=== PATIENT | male | born 1950 | race African-American/Black ===

== ENCOUNTER 2022-11-29 09:54 | Outpatient (OUT) | payer MEDICARE, MEDICAID, SELFPAY ==
--- NOTE | 2022-11-29 | XR_ITS ---
The [address] [address] Patient Name: SIMON LOVE MRN: [id number] date: 1950 Sex: M Assigned Patient Location: Current Patient Location: Accession/Order Number: [id number] Exam Date: 11/29/2022 10:22 Report Date: 11/29/2022 10:52 At the request of: LIAM GAYLE Procedure: XR foot RT min 3V PROCEDURE: XR foot RT min 3V HISTORY: RIGHT FOOT PAIN COMPARISON: XR foot right 08/16/2022 FINDINGS: BONES:No increased sclerotic density and irregular margins of the fifth metatarsal suggestive of advanced periosteal reaction. Degenerative changes the first metatarsophalangeal joint and suspected old proximal medial corner fracture of first proximal phalanx. Old healed fracture of the second metatarsal. SOFT TISSUES:Lateral soft tissue swelling and suspected skin surface defect along the lateral plantar margin; possible ulcer. EFFUSION:None visible. OTHER: Negative. XR/XR foot RT min 3V IMPRESSION: 1. Progressing changes of the fifth metatarsal; marked periosteal reaction versus neoplasm. 2. Lateral soft tissue swelling; possible ulcer. Electronically authenticated by: PRAVEEN ESCUDERO Date: 11/29/2022 10:52
== END 2022-11-29 09:55 | disposition home or self-care (01) ==
LOC: WC 09:54
PROVIDERS: PCP Podiatrist Foot & Ankle Surgery; Visit Provider Podiatrist Foot & Ankle Surgery
DX: M79.671 Pain in right foot (principal); E11.621 Type 2 diabetes mellitus with foot ulcer; L97.411 Non-pressure chronic ulcer of right heel and midfoot limited to breakdown of skin; L89.613 Pressure ulcer of right heel, stage 3
CPT/HCPCS: 11042; 73630; A6196

== ENCOUNTER 2022-12-23 10:02 | Outpatient (OUT) | payer MEDICARE, MEDICAID, SELFPAY | END 2022-12-23 10:03 | disposition home or self-care (01) | LOC: WC 10:02 | PROVIDERS: PCP Podiatrist Foot & Ankle Surgery; Visit Provider Physician Assistant | DX: E11.621 Type 2 diabetes mellitus with foot ulcer (principal); L97.411 Non-pressure chronic ulcer of right heel and midfoot limited to breakdown of skin; L89.613 Pressure ulcer of right heel, stage 3; L84 Corns and callosities; E11.40 Type 2 diabetes mellitus with diabetic neuropathy, unspecified; L97.512 Non-pressure chronic ulcer of other part of right foot with fat layer exposed | CPT/HCPCS: 11043; 11055 ==

== ENCOUNTER 2023-01-14 15:59 | Outpatient (OUT) | payer MEDICARE, MEDICAID, SELFPAY | END 2023-01-14 16:00 | disposition home or self-care (01) | LOC: WC 15:59 | PROVIDERS: PCP Podiatrist Foot & Ankle Surgery; Visit Provider Podiatrist Foot & Ankle Surgery | DX: E11.621 Type 2 diabetes mellitus with foot ulcer (principal); L97.411 Non-pressure chronic ulcer of right heel and midfoot limited to breakdown of skin; L89.613 Pressure ulcer of right heel, stage 3 | CPT/HCPCS: 11042 ==

== ENCOUNTER 2023-02-10 10:02 | Outpatient (OUT) | payer MEDICARE, MEDICAID, SELFPAY | END 2023-02-10 10:03 | disposition home or self-care (01) | LOC: WC 10:03 | PROVIDERS: PCP Podiatrist Foot & Ankle Surgery; Visit Provider Physician Assistant | DX: E11.621 Type 2 diabetes mellitus with foot ulcer (principal); L97.411 Non-pressure chronic ulcer of right heel and midfoot limited to breakdown of skin; L89.613 Pressure ulcer of right heel, stage 3 | CPT/HCPCS: 11043; 11046 ==

== ENCOUNTER 2023-03-07 09:45 | Outpatient (OUT) | payer MEDICARE, MEDICAID, SELFPAY | END 2023-03-07 09:46 | disposition home or self-care (01) | LOC: WC 09:45 | PROVIDERS: PCP Podiatrist Foot & Ankle Surgery; Visit Provider Podiatrist Foot & Ankle Surgery | DX: E11.621 Type 2 diabetes mellitus with foot ulcer (principal); L97.411 Non-pressure chronic ulcer of right heel and midfoot limited to breakdown of skin; L89.613 Pressure ulcer of right heel, stage 3 | CPT/HCPCS: 11042; 15275; A6213; Q4196 ==

== ENCOUNTER 2023-03-14 09:49 | Outpatient (OUT) | payer MEDICARE, MEDICAID, SELFPAY | END 2023-03-14 09:50 | disposition home or self-care (01) | LOC: WC 09:50 | PROVIDERS: PCP Podiatrist Foot & Ankle Surgery; Visit Provider Podiatrist Foot & Ankle Surgery | DX: E11.621 Type 2 diabetes mellitus with foot ulcer (principal); L97.411 Non-pressure chronic ulcer of right heel and midfoot limited to breakdown of skin; L89.613 Pressure ulcer of right heel, stage 3 | CPT/HCPCS: 11042; 15275; Q4196 ==

== ENCOUNTER 2023-03-21 09:53 | Outpatient (OUT) | payer MEDICARE, MEDICAID, SELFPAY | END 2023-03-21 09:54 | disposition home or self-care (01) | LOC: WC 09:53 | PROVIDERS: PCP Podiatrist Foot & Ankle Surgery; Visit Provider Podiatrist Foot & Ankle Surgery | DX: E11.621 Type 2 diabetes mellitus with foot ulcer (principal); L97.411 Non-pressure chronic ulcer of right heel and midfoot limited to breakdown of skin; L89.613 Pressure ulcer of right heel, stage 3 | CPT/HCPCS: 11042; 15275; Q4196 ==

== ENCOUNTER 2023-03-28 11:49 | Outpatient (OUT) | payer MEDICARE, MEDICAID, SELFPAY | END 2023-03-28 11:50 | disposition home or self-care (01) | LOC: WC 11:49 | PROVIDERS: PCP Podiatrist Foot & Ankle Surgery; Visit Provider Podiatrist Foot & Ankle Surgery | DX: E11.621 Type 2 diabetes mellitus with foot ulcer (principal); L97.411 Non-pressure chronic ulcer of right heel and midfoot limited to breakdown of skin; L89.613 Pressure ulcer of right heel, stage 3; L84 Corns and callosities; E11.40 Type 2 diabetes mellitus with diabetic neuropathy, unspecified; R60.0 Localized edema; Z89.412 Acquired absence of left great toe; E11.65 Type 2 diabetes mellitus with hyperglycemia; I73.89 Other specified peripheral vascular diseases; I87.2 Venous insufficiency (chronic) (peripheral) | CPT/HCPCS: 15275; Q4101 ==

== ENCOUNTER 2023-04-04 11:22 | Outpatient (OUT) | payer MEDICARE, MEDICAID, SELFPAY | END 2023-04-04 11:23 | disposition home or self-care (01) | LOC: WC 11:22 | PROVIDERS: PCP Podiatrist Foot & Ankle Surgery; Visit Provider Podiatrist Foot & Ankle Surgery | DX: E11.621 Type 2 diabetes mellitus with foot ulcer (principal); L97.411 Non-pressure chronic ulcer of right heel and midfoot limited to breakdown of skin; L89.613 Pressure ulcer of right heel, stage 3 | CPT/HCPCS: 15275; Q4101 ==

== ENCOUNTER 2023-04-17 13:19 | Outpatient (OUT) | payer MEDICARE, MEDICAID, SELFPAY | END 2023-04-17 13:20 | disposition home or self-care (01) | LOC: WC 13:19 | PROVIDERS: PCP Podiatrist Foot & Ankle Surgery; Visit Provider Podiatrist Foot & Ankle Surgery | DX: E11.621 Type 2 diabetes mellitus with foot ulcer (principal); L97.411 Non-pressure chronic ulcer of right heel and midfoot limited to breakdown of skin; L89.613 Pressure ulcer of right heel, stage 3 | CPT/HCPCS: 15275; Q4101 ==

== ENCOUNTER 2023-04-24 10:48 | Outpatient (OUT) | payer MEDICARE, MEDICAID, SELFPAY | END 2023-04-24 10:49 | disposition home or self-care (01) | LOC: WC 10:48 | PROVIDERS: PCP Podiatrist Foot & Ankle Surgery; Visit Provider Podiatrist Foot & Ankle Surgery | DX: E11.621 Type 2 diabetes mellitus with foot ulcer (principal); L97.411 Non-pressure chronic ulcer of right heel and midfoot limited to breakdown of skin; L89.613 Pressure ulcer of right heel, stage 3 | CPT/HCPCS: 15275; Q4101 ==

== ENCOUNTER 2023-05-01 10:00 | Outpatient (OUT) | payer MEDICARE, MEDICAID, SELFPAY ==
--- OUTSIDE RECORDS SUMMARY | 2023-05-02 10:54 | XMS_ITS | CCD ---
Author Name Unknown Address [address] [place] [address] Organization [facility] Care Team Providers Care Circuit Designer Name Role Phone Johan Taylor Unavailable Olga Lidia Martin Unavailable Fawad Rocha Unavailable Yisel Andrade Unavailable [facility] Primary Care Prov ider ELBA Ochoa Attending Provider [phone] DO Ivan Springer Emergency Provider [phone] DO Maye Murray Primary Care Provider DO Chris Mccarthy Admit Provider MD Johan Taylor Other Provider MD Olga Lidia Martin Other Provider MD Jose Escobar Other Provider MD Manoj Frank Other Provider MD Christofer Persaud Other Provider MD Yisel Andrade Other Provider DEEDEE Turpin Other Provider UnavailDEEDEE Rene Other Provider Unavailable MD Fawad Rocha Other Provider ELÍAS Castorena Other Provider [phone] MD Raimundo Gandhi Other Provider [phone] MD Master Mauricio Other Provider [phone] ELBA Ochoa Bhakti Other Provider MD Landon Grullon Attending Provider MD Kiko Corbett Other Provider DO Ramakrishna Sandoval Emergency Provider MD Kiko Corbett Attending Provider Spasic, BOAT OFFICER-C Mervat E Primary Care Provider Spasic, BOAT OFFICER-C Mervat E Referring Provider DO Jose M Landry II Attending Provider Riya Pitt Unavailable Master Mauricio Unavailable MD Jose Escobar Other Provider Unavailable Spasic, BOAT OFFICER-C Mervat E Primary Care Provider Spasic, BOAT OFFICER-C Mervat E Referring Provider DO Jose M Landry II Attending Provider Maye Murray Unavailable Unavailable Unavailable DO Maye Murray Primary Care Provider MD Kiko Corbett Attending Provider Spasic, BOAT OFFICER-C Mervat E Primary Care Provider Spasic, BOAT OFFICER-C Mervat E Referring Provider DO Jose M Landry II Attending Provider MD Renata Wyatt Attending Provider DO Kasey Heller Referring Provider DO Maye Murray Attending Provider Spasic, BOAT OFFICER-C Mervat E Primary Care Provider Spasic, BOAT OFFICER-C Mervat E Referring Provider DO Jose M Landry II Attending Provider MD Renata Wyatt Attending Provider Spasic, BOAT OFFICER-C Mervat E Primary Care Provider Spasic, BOAT OFFICER-C Mervat E Referring Provider Frantz GUILLEN, DO Jose M Wiggins Attending Provider Unavailable Primary Care Provider DO Maye Adkins Primary Care Provider MD Kiko Corbett Attending Provider Spasic, BOAT OFFICER-C Mervat E Primary Care Provider Spasic, BOAT OFFICER-C Mervat E Referring Provider DO Jose M Landry II Attending Provider [phone] MAYE MURRAY Primary Care Physician [phone] Bunting Maye GHOSH Primary Care Provider [phone] BunDO Maye flynn Primary Care Provider MD Kiko Corbett Attending Provider Spasic, BOAT OFFICER-C Mervat E Primary Care Provider Spasic, BOAT OFFICER-C Mervat E Referring Provider Frantz GUILLEN, DO Jose M Wiggins Attending Provider DO Maye Murray Attending Provider [phone] DO Maye Murray Primary Care Provider Spasic, BOAT OFFICER-C Mervat E Primary Care Provider Spasic, BOAT OFFICER-C Mervat E Referring Provider DO Jose M Landry II Attending Provider Spasic, BOAT OFFICER-C Mervat E Primary Care Provider Spasic, BOAT OFFICER-C Mervat E Referring Provider DO Jose M Landry II Attending Provider [phone] MD Sonal Márquez Jr Emergency Provider Spasic, BOAT OFFICER-C Mervat E Primary Care Provider [phone] Jack, BOAT OFFICER-C Mervat Hughes Referring Provider DO Jose M Landry II Attending Provider LIAM GAYLE Admitting Unavailable LIAM GAYLE Attending Unavailable PILI, DR PRAKASH Primary Care Unavailable KENA, DR PRAVEEN Roy Consulting Unavailable LIAM GAYLE Consulting Unavailable Bunting, Maye Attending Unavailable Bunting, Maye Admitting Unavailable Bunting, Maye Primary Care Unavailable Lue, Kiko M Admitting Unavailable Lue, Kiko M Attending Unavailable Bunting, Maye Primary Care Unavailable YwattRenata Attending Unavailable Bunting, Maye Primary Care Unavailable Kasey Heller Referring Unavailable Wyatt, Renata Admitting Unavailable Spasic, Mervat E Admitting Unavailable Spasic, Mervat E Attending Unavailable Bunting, Maye Primary Care Unavailable Lauren, Srinivas M Attending Unavailable Lauren, Srinivas M Admitting Unavailable Spasic, Mervat E Primary Care Unavailable Lue, Kiko M Admitting Unavailable Lue, Kiko M Attending Unavailable Bunting, Maye Primary Care Unavailable Lue, Kiko M Admitting Unavailable Lue, Kiko M Attending Unavailable Bunting, Maye Primary Care Unavailable Bunting, Maye Attending Unavailable Bunting, Maye Admitting Unavailable Bunting, Maye Primary Care Unavailable Bunting, Maye Attending Unavailable Bunting, Maye Admitting Unavailable Bunting, Maye Primary Care Unavailable Bunting, Maye Primary Care Unavailable Bunting, Maye Attending Unavailable Bunting, Maye Admitting Unavailable Lue, Kiko M Admitting Unavailable Lue, Kiko M Attending Unavailable Bunting, Maye Primary Care Unavailable Spasic, Mervat E Referring Unavailable Spasic, Mervat E Primary Care Unavailable Jose M Landry II Admitting UnavailJose M García II Attending Unavaila Sonal Jerome Jr Admitting Unavailable Sonal Márquez Jr Attending Unavailable Bunting, Maye Primary Care Unavailable Keister, Ramakrishna A Attending Unavailable Bunting, Maye Primary Care Unavailable Keister, Ramakrishna A Admitting Unavailable Ochoa, Bhakti Attending Unavailable [facility] Primary Care U navailable Bhakti Ochoa Admitting Unavailable Bunting, Maye Primary Care Unavailable Johan Taylor Consulting Unavailable Chris Mccarthy Admitting Unavaildilshad e Landon Grullon Attending Unavailab Olga Lidia Hampton Consulting Unavailable Jose Escobar Consulting Unavailable Singhlisset, Manoj Consulting Unavailable Persaud, Christofer Consulting Unavailable Bakhous, Aziz Consulting Unavailable GeDelores medina Consulting Unavailable Jessica Lua Consulting Unavailable Fawad Rocha Consulting Unavailable Jailene Castorena Consulting Unavailable Raimundo Gandhi F Consulting Unavailable Master Mauricio Consulting Unavailabl e Ochoa, Bhakti Consulting Unavailable Kiko Corbett Consulting Unavailable Julian Jones Attending Unavailable Mervat Santiago Primary Care Unavailable Riya Pitt Consulting Unavailable Landon Grullon Admitting Unavailab le Bakkip, Aziz Consulting Unavailable Ochoa, Bhakti Consulting Unavailable Sj Barron Consulting Unavailable Kiko Corbett Admitting Unavailable Kiko Corbett Attending Unavailable Maye Murray Primary Care Unavailable DO Maye Murray Primary Care Provider DO Maye Murray Attending Provider [phone] MD Sonal Márquez Jr Emergency Provider Claudioc, BOAT OFFICER-C Mervat Hughes Primary Care Provider Jack, BOAT OFFICER-C Mervat Hughes Referring Provider DO Jose M Landry II Attending Provider Jack, BOAT OFFICER-C Mervat Hughes Attending Provider DO Srinivas Aguilar Emergency Provider TYSON Dwyer Emergency Provider [phone] MD Landon Grullon Admit Provider MD Riya Pitt Other Provider MD Yisel Andrade Other Provider ELBA Ochoa Other Provider MD Julian Jones Attending Provider MD Sj Barron Other Provider DO Serafin Pearson Emergency Provider MD Kevin Steinberg Admit Provider MD Kevin Steinberg Attending Provider [phone] MD Johan Taylor Other Provider MD Fawad Rocha Other Provider Bunting, Dr. Maye Nuno Primary Care Unavaila ble Bunting, Dr. Maye Nuno Primary Care Unavaila ble Bunting, Dr. Maye Nuno Primary Care Unavaila ble MD RENATA WYATT Attending Unavailable MD RENATA WYATT Referring Unavailable Travon Paz Attending Unavailable Bunting, Dr. Maye Nuno Primary Care Unavaila MD RENATA Case Attending Unavailable MD RENATA WYATT Referring Unavailable Bunting, DO Walton Primary Care Provider ELBA Gomez Other Provider MD Riya Pitt Attending Provider Spasic, BOAT OFFICER-C Mervat E Primary Care Provider [phone] Spasic, BOAT OFFICER-C Mervat E Referring Provider DO Jose M Landry II Attending Provider MD Pedro Drake Emergency Provider DO Maye Murray Primary Care Provider Spasic, BOAT OFFICER-C Mervat E Referring Provider DO Jose M Landry II Attending Provider [phone] MAI Kessler Emergency Provider [phone] DO Riya Sampson Admit Provider DO Riya Sampson Attending Provider DO Jose M Landry II Attending Provider Kgsic, BOAT OFFICER-C Mervat E Referring Provider Spasic, BOAT OFFICER-C Mervat E Primary Care Provider MD Riya Pitt Other Provider Spasic, BOAT OFFICER-C Mervat E Attending Provider MD Fawad Rocha Other Provider Spasic, BOAT OFFICER-C Mervat E Primary Care Provider [phone] MD Riya Pitt Other Provider Lue, Kiko M. Attending Unavailable Lue, Kiko M. Attending Unavailable Lue, Kiko M. Attending Unavailable Lue, Kiko M. Attending Unavailable Lue, Kiko M. Attending Unavailable Lue, Kiko M. Attending Unavailable Lue, Kiko M. Attending Unavailable Lue, Kiko M. Attending Unavailable Lue, Kiko M. Attending Unavailable Spasic, BOAT OFFICER-C Mervat E Primary Care Provider MD Riya Pitt Attending Provider Spasic, BOAT OFFICER-C Mervat E Attending Provider [facility] Primary Care Prov ider Spasic, BOAT OFFICER-C Mervat E Referring Provider Spasic, BOAT OFFICER-C Mervat E Primary Care Provider Spasic, BOAT OFFICER-C Mervat E Referring Provider Spasic, BOAT OFFICER-C Mervat E Primary Care Provider TYSON Dixon Attending Provider Spasic, BOAT OFFICER-C Mervat E Primary Care Provider DO Jose M Landry II Attending Provider MD Johan Taylor Attending Provider [phone] ALEJANDRO FLORES Admitting Unavailable ALEJANDRO FLORES Attending Unavailable SHELDON DE LEON Attending Unavailable RAIMUNDO MONTES Admitting Unavailable SONAL MÁRQUEZ JR Referring Unavailable TERRI, MAYE RAY Primary Care Unavailable RIYA ARAMBULA Admitting Unavailable RIYA ARAMBULA Attending Unavailable DANATING, MAYE RAY Primary Care Unavailable ALEJANDRO FLORES Admitting Unavailable ALEJANDRO FLORES Attending Unavailable DO Jose M Landry II Attending Provider [phone] Spasic, BOAT OFFICER-C Mervat E Attending Provider [facility] Primary Care Prov ider TYSON Dixon Attending Provider MD Johan Taylor Attending Provider [phone] NON STAFF Primary Care Provider Unavailabl e Spasic, BOAT OFFICER-C Mervat E Primary Care Provider Spasic, BOAT OFFICER-C Mervat E Referring Provider DO Jose M Landyr II Attending Provider [facility] Care Prov ider Spasic, BOAT OFFICER-C Mervat E Attending Provider Spasic, BOAT OFFICER-C Mervat E Primary Care Provider Spasic, BOAT OFFICER-C Mervat E Referring Provider MD Fawad Rocha Attending Provider [facility] Prov ider Spasic, BOAT OFFICER-C Mervat E Attending Provider Spasic, BOAT OFFICER-C Mervat E Primary Care Provider Spasic, BOAT OFFICER-C Mervat E Referring Provider TYSON Dixon Attending Provider MD Jhoan Taylor Attending Provider NON STAFF Primary Care Provider Unavailabl e Spasic, BOAT OFFICER-C Mervat E Attending Provider DO Jose M Landry II Attending Provider MD Fawad Rocha Attending Provider Spasic, BOAT OFFICER-C Mervat E Primary Care Provider Spasic, BOAT OFFICER-C Mervat E Referring Provider Allergies Allergy Classification Reported Allergen(s) Allergy Type Date of Onset Reaction(s) Facility (20 sources) Codeine; Translations: [codeine] Drug Allergy 6 Unknown (qualifier value), GI Upset [facility] (20 sources) Lisinopril; Translations: [lisinopril] Drug Allergy 2 anaphylaxis, Swelling (finding), Swelling [facility] (1 source) Amino Acids Drug Allergy [facility] (1 source) Codeine Drug Allergy [facility] (1 source) Codeine Drug Allergy 3 [facility] (1 source) Lisinopril Drug Allergy 3 [facility] Medications Current Medications Medication Drug Class(es) Dates Sig (Normalized) Sig (Original) acarbose 100 mg oral tablet (20 sources) alpha-Glucosidase Inhibitor Start: 05-25-2020 End: 05-18-2021 Start: 10-13-2019 End: 03-21-2020 Comment on above: Take 100 mg by mouth three times daily with meals. Alpha Lipoic 100 mg oral tablet (4 sources) Start: 06-07-2022 take 1 mg by mouth twice daily Alpha Lipoic 100 mg oral tablet mg tab(s), Oral, BID, Refills(s) 0 Start Date: 06/07/22 Status: Ordered Alpha Lipoic Acid 200 MG (11 sources) take 1 capsule by mouth once daily Alpha Lipoic Acid 200 MG 1 capsule Orally Once a day Active Alpha Lipoic Aci d 200 MG as directed Orally daily Active Alpha Lipoic Acid 300 MG (5 sources) Alpha Lipoic Aci d 300 MG Orally bid Active ascorbic acid 500 mg oral tablet (20 sources) Vitamin C Start: 04-02-2023 Start: 05-18-2021 End: 10-21-2022 take 1 capsule by mouth once luis ly Vitamin C 500 MG Oral Capsule TAKE 1 CAPSULE Daily Quantity: 0 Refills: 0 Ordered: 21-Feb-2022 DO Active Aspir 81 (2 sources) Start: 11-19-2018 take 1 mg by mouth once daily Aspir 81 mg, Oral, Daily, Refills(s) 0 Start Date: 11/19/18 Status: Ordered atorvastatin 10 mg oral tablet (20 sources) HMG-CoA Reductase Inhibitor Start: 05-25-2020 Start: 12-25-2016 End: 05-25-2020 Comment on above: Take 40 mg by mouth once daily. Boost Glucose Control - (3 sources) Boost Glucose Co ntrol - as directed Orally TWICE A DAY Active calcium acetate 668 mg oral tablet (5 sources) Start: 02-13-2023 take 2 tablets by mouth every eight hours Calcium Acetate 668 (169 Ca) MG 2 tablets with meals Orally Three times a day for 30 day(s) Feb, Active Cepacol Sore Throat 3 MG (8 sources) Cepacol Sore Thr oat 3 MG Mouth/Throat prn Active cloNIDine hydrochloride 0.1 mg oral tablet (4 sources) Central alpha-2 Adrenergic Agonist Start: 04-02-2023 clopidogrel 75 mg oral table t (20 sources) P2Y12 Platelet Inhibitor Start: 05-25-2020 Start: 11-19-2018 End: 03-21-2020 Plavix Active Comment on above: Take 75 mg by mouth once daily. Take 1 tablet by tyshawn once daily. Cymbalta 60 mg Cap-DR (5 sources) Start: 9 take 1 capsule by mouth once daily Cymbalta 60 mg Cap-DR 60 mg, Oral, Daily Start Date: 11/19/18 Status: Ordered DULoxetine 60 mg delayed release oral capsule (20 sources) Serotonin and Norepinephrine Reuptake Inhibitor Start: 3 Start: 06-09-2020 duloxetine Ora l, Refills(s) 0 Start Date: 06/09/20 Status: Ordered Start: 03-21-2020 End: 09-10-2022 Start: 11-19-2018 End: 03-21-2020 Start: 12-25-2016 End: 10-13-2019 take 3 capsules by m outh every twelve hours DULoxetine HCl 60 MG 3 CAPSULES Orally Twice a day Active take 3 capsules by m outh every twelve hours take 3 capsules by m outh twice daily DULoxetine HCl - 20 MG Oral Capsule Delayed Release Particles TAKE 3 CAPSULE Twice daily Quantity: 0 Refills: 0 Ordered: 21-Feb-2022 DO Active DULoxetine HCl 6 0 MG as directed Orally Twice a day Active DULoxetine HCl A ctive Comment on above: Take 60 mg by mouth once daily. Ergocalciferol (2 sources) Provitamin D2 Compound Start: 04-02-20 take 58496 [IU] by mouth every week Ergocalciferol (Vitamin D2) Active 77894 UNIT PO every week April 02, 2023 12:00am ertapenem 1000 mg injection (3 sources) Penem Antibacterial Ertapenem So dium 1 GM as directed Injection Active ferrous sulfate 325 mg oral tablet (20 sources) Start: 04-02-20 Start: 05-18-2021 End: 10-21-2022 take 325 mg by mouth once Ferrous Sulfate Discontinued 325 MG PO every Friday, Friday, and Tuesday May 18, 2021 12:34pm October 21, 2022 11:42am Start: 05-18-2021 End: 11-14-2021 Start: 05-30-2020 End: 10-21-2022 Start: 03-21-2020 End: 05-25-2020 Start: 11-19-2018 take 1 tablet by tyshawn th three times daily ferrous sulfate 325 mg Tab 325 mg = 1 tab(s), Oral, TID Start Date: 11/19/18 Status: Ordered Start: 12-25-2016 End: 01-26-2020 take 1 tablet by tyshawn th once daily Ferrous Sulfate 325 (65 Fe) MG 1 tablet Orally ONCE A DAY Active Comment on above: Take 325 mg by mouth daily with breakfast. folic acid 1 mg oral tablet (20 sources) Start: 03-14-2021 Comment on above: Take 1 mg by mouth o nce daily. furosemide 40 mg oral tablet (20 sources) Loop Diuretic Start: 11-21-2021 End: 04-16-2023 Start: 11-21-2021 Start: 11-21-2021 take 40 mg by mouth twice daily Furosemide Active 40 MG PO BID@0800,1600 0 November 21, 2021 12:00am Start: 12-25-2016 End: 05-25-2020 Start: 12-25-2016 End: 05-25-2020 take 40 mg by mouth once daily Furosemide Discontinued 40 MG PO Daily December 24, 2016 11:00pm May 25, 2020 12:42pm Comment on above: Take 40 mg by mouth twice daily. gabapentin 600 mg oral table t (20 sources) Anti-epileptic Agent Start: 11-21-2021 End: 04-16-2023 Start: 11-21-2021 take 600 mg by mouth once daily in the evening Gabapentin Active 600 MG PO Every evening 0 November 21, 2021 12:00am Start: 12-25-2016 End: 11-21-2021 Start: 12-25-2016 End: 11-21-2021 take 1 tablet by mouth three times daily Gabapentin (Neurontin) 800 mg Tablet Discontinued 800 MG PO Three times daily January 25, 2020 11:00pm November 21, 2021 6:18pm take 1 tablet by tyshawn th every twenty-four hours Neurontin 600 MG 1 tablet Orally Once a day Active take 1 tablet by tyshawn th three times daily GABAPENTIN (NEURONTIN ORAL) Take 1 tablet by mouth three times daily. 0 Suspended take 1 tablet by tyshawn th three times daily GABAPENTIN (NEURONTIN ORAL) Take 1 tablet by mouth three times daily. 0 Active take 1 tablet by tyshawn th three times daily Neurontin 800 1 tablet Orally Three times a day Active Comment on above: Take 1 tablet by tyshawn th three times daily. Insulin Aspart U-100 (Novolog U-100 Insulin Aspart) 100 unit/mL Solution (20 sources) Start: 03-21-2020 Insulin Aspart U-100 (Novolog U-100 Insulin Aspart) 100 unit/mL Solution Active 0 unit SUBCUT Before meals and at bedtime March 21, 2020 12:00am 151-200 0 units 201-250 2 units 251-300 4units 301-350 6 units 351-400 8 units 401-450 10 units over 400 call doctor Start: 03-21-2020 Insulin Aspart U-100 (Novolog U-100 Insulin Aspart) 100 unit/mL Solution Active 0 unit SUBCUT Before meals and at bedtime March 21, 2020 12:00am 151-200 2 units 201-250 4 units 251-300 6 units 301-350 8 units 351-400 10 units 401-450 12 units 451-500 14 units over 500 call doctor Start: 03-21-2020 End: 05-25-2020 inject 6 [IU] by subcutaneous injection once daily Insulin Aspart U-100 (Novolog U-100 Insulin Aspart) 100 unit/mL Solution Discontinued 6 UNIT SUBCUT Daily March 21, 2020 12:00am May 25, 2020 12:42pm with supper Start: 03-21-2020 Insulin Aspart U-100 (Novolog U-100 Insulin Aspart) 100 unit/mL Solution Active 0 unit SUBCUT Before meals and at bedtime March 21, 2020 1:00am 151-200 2 units 201-250 4 units 251-300 6 units 301-350 8 units 351-400 10 units 401-450 12 units 451-500 14 units over 500 call doctor Start: 03-21-2020 End: 05-25-2020 inject 6 [IU] by subcutaneous injection once daily Insulin Aspart U-100 (Novolog U-100 Insulin Aspart) 100 unit/mL Solution Discontinued 6 UNIT SUBCUT Daily March 21, 2020 1:00am May 25, 2020 1:42pm with supper insulin aspart, human 100 unt/ml injectable solution (20 sources) Insulin Analog Start: 11-19-2018 NovoLOG 100 un its/mL injectable solution SubCutaneous, TIDAC, Refills(s) 0 Start Date: 11/19/18 Status: Ordered Start: 12-25-2016 End: 01-19-2020 inject 1 dose by subcutaneous injection at bedtime Insulin Aspart U-100 Discontinued 25 sliding scale dose SUBCUT Before meals and at bedtime December 24, 2016 11:00pm January 19, 2020 7:30am Start: 12-25-2016 End: 01-19-2020 inject 1 dose by subcutaneous injection at bedtime Insulin Aspart U-100 Discontinued 25 sliding scale dose SUBCUT Before meals and at bedtime December 25, 2016 12:00am January 19, 2020 8:30am NovoLOG 100 UNIT /ML as directed Subcutaneous SLIDING SCALE NEEDED Active insulin aspart U -100 (NOVOLOG) 100 unit/mL Inject subcutaneously. As directed 0 Active NovoLOG FlexPen 100 UNIT/ML Subcutaneous Solution Pen-injector sliding scale Quantity: 0 Refills: 0 Ordered: 21-Feb-2022 DO Active inject 6 [IU] by sub cutaneous injection once NovoLOG 100 UNIT/ML 6 units Subcutaneous q supper Active inject 4 [IU] by sub cutaneous injection once daily at bedtime NovoLOG 100 UNIT/ML 4 units Subcutaneous QHS Active Comment on above: Inject subcutaneousl y. As directed Insulin Detemir U-100 (Levemir Flextouch U100 Insulin) 100 unit/mL (3 mL) insulin pen (5 sources) Start: 05-18-2021 Insulin Detemir U-100 (Levemir Flextouch U100 Insulin) 100 unit/mL (3 mL) insulin pen Active 42 UNIT SUBCUT Every morning May 18, 2021 12:00am Start: 05-18-2021 Insulin Detemi r U-100 (Levemir Flextouch U100 Insulin) 100 unit/mL (3 mL) insulin pen Active 42 UNIT SUBCUT Daily May 18, 2021 12:00am Lac-Hydrin Twelve (3 sources) Lac-Hydrin Twelv e Active ammonium lactate 120 mg/ml t opical lotion (20 sources) Start: 10-22-2022 Start: 10-22-2022 Ammonium Lacta te Active 1 APPLIC TOPICAL Daily October 21, 2022 11:00pm Start: 05-25-2020 End: 10-21-2022 Start: 05-25-2020 End: 10-21-2022 Ammonium Lactate Discontinue d 1 APPLIC TOPICAL Every shift May 25, 2020 12:00am October 21, 2022 11:42am apply to intact areas of BLE every day shift [facility] Start: 05-25-2020 Ammonium Lacta te Active 1 APPLIC TOPICAL Every shift May 25, 2020 1:00am Ammonium Lactate 12 % 1 application Externally Twice a day Active ammonium lactate (LAC-HYDRIN) 12 % cream Apply to affected area as needed. 0 Active Comment on above: Apply to affected ar ea as needed. Levemir FlexTouch 100 UNIT/ML (5 sources) Levemir FlexTouc h 100 UNIT/ML as directed Subcutaneous 42 units in the am Active losartan potassium 50 mg oral tablet (20 sources) Angiotensin 2 Receptor Preston Start: 04-02-2023 Start: 11-21-2021 End: 10-21-2022 Start: 11-21-2021 take 50 mg by mouth once daily Losartan Active 50 MG PO Daily November 21, 2021 7:13pm Start: 05-18-2021 End: 11-21-2021 Start: 03-21-2020 End: 05-30-2020 Start: 09-30-2018 End: 01-26-2020 Start: 09-30-2018 End: 11-21-2021 take 25 mg by mouth once daily Losartan Discontinued 2 5 MG PO Daily May 18, 2021 12:00am November 21, 2021 6:18pm take 1 tablet by [facility] once daily losartan (COZAAR) 100 mg tablet Take 100 mg by mouth once daily. 0 Suspended Comment on above: Take 100 mg by mouth once daily. melatonin 5 mg oral tablet (20 sources) Start: 05-18-2021 Start: 05-18-2021 take 5 mg by mouth at bedtime Melatonin Active 5 MG PO Bedtime May 18, 2021 12:00am Start: 06-09-2020 melatonin 5 mg , Once a day (at bedtime), Refills(s) 0 Start Date: 06/09/20 Status: Ordered Start: 06-09-2020 melatonin Once a day (at bedtime), Refills(s) 0 Start Date: 06/09/20 Status: Ordered take 1 tablet by tyshawn th once daily in the evening Melatonin 5 MG 1 tablet in the evening Orally Once a day Active take 1 capsule by mo [facility] at bedtime Melatonin 5 MG Oral Capsule TAKE 1 CAPSULE Bedtime Quantity: 0 Refills: 0 Ordered: 21-Feb-2022 DO Active Multivitamins - (8 sources) Multivitamins - Orally Active NIFEdipine 60 mg osmotic 24 hr extended release oral tablet (20 sources) Dihydropyridine Calcium Channel Preston Start: 09-12-2022 End: 10-21-2022 Start: 09-12-2022 End: 10-21-2022 take 60 mg by mouth once daily Nifedipine Discontinued 60 MG PO Daily September 11, 2022 11:00pm October 21, 2022 11:41am Start: 06-07-2022 take 1 mg by mouth once daily NIFEdipine 30 mg ER Tab mg tab(s), Oral, Daily, Refills(s) 0 Start Date: 06/07/22 Status: Ordered Start: 11-21-2021 End: 09-12-2022 Start: 11-21-2021 take 30 mg by mouth once daily Nifedipine Active 30 MG PO Daily 0 November 21, 2021 12:00am take 1 tablet by tyshawn th every twenty-four hours NIFEdipine ER 90 MG 1 tablet on an empty stomach Orally Once a day Active take 1 tablet by tyshawn th every twenty-four hours NIFEdipine ER 30 MG 1 tablet on an empty stomach Orally Once a day Active take 1 tablet by tyshawn th once daily NIFEdipine ER (PROCARDIA XL) 30 mg 24 hr tablet Take 30 mg by mouth once daily. 0 Active Comment on above: Take 30 mg by mouth once daily. polyethylene glycol 3350 170 00 mg powder for oral solution (20 sources) Osmotic Laxative Start: 11-21-2021 Start: 11-21-2021 Start: 11-21-2021 Polyethylene G lycol 3350 (Miralax) 17 gram Powder In Packet Active 17 GM PO Daily 0 November 21, 2021 12:00am Polyethylene Gly col 3350 17 GM/SCOOP 1 scoop mixed with 8 ounces of fluid Orally Once a day Active Polyethylene Glycol 3350 17 GM/SCOOP (3 sources) Polyethylene Gly col 3350 17 GM/SCOOP 1 scoop mixed with 8 ounces of fluid Orally Once a day Active potassium chloride 20 meq extended release oral tablet (20 sources) Start: 05-18-2021 Start: 05-18-2021 Start: 03-21-2020 End: 05-25-2020 Start: 12-25-2016 End: 01-26-2020 Start: 12-25-2016 End: 01-26-2020 take 30 mEq by mouth once daily Potassium Chloride Dis continued 30 MEQ PO Daily December 24, 2016 11:00pm January 26, 2020 8:53am take 1 dose by mouth once daily at mealtime Potassium Chloride 20 MEQ 1 packet with food Orally Once a day Active take 1 tablet by tyshawn every twenty-four hours Klor-Con M20 20 mEq 1 tablet with food Orally qd Active Probiotic - (8 sources) Probiotic - Oral ly Active Saccharomyces boulardii lyo (3 sources) tamsulosin hydrochloride 0.4 mg oral capsule (20 sources) alpha-Adrenergic [place] Start: 07-17-2022 Start: 11-19-2018 take 1 capsule by mo [facility] once daily tamsulosin 0.4 mg Cap 0.4 mg = 1 cap(s), Oral, Daily Start Date: 11/19/18 Status: Ordered Start: 12-25-2016 End: 04-22-2022 Comment on above: Take 0.4 mg by mouth . Trulance 3mg (2 sources) Start: 7 take 1 tablet by mouth once daily Trulance 3mg 1 tablet po once a day for 1 month Dec, Active 200 ml vancomycin 5 mg/ml injection (3 sources) Glycopeptide Antibacterial Vancomycin HCl in Dextrose 1-5 GM/200ML as directed done on 01/02/2022 Active Vancomycin HCl 1 GM as directed Intravenous Active Vitamin D3 2000 UNIT (8 sources) take 1 capsule by mouth once luis ly take 1 capsule by mouth once luis ly Vitamin D3 2000 UNIT 1 capsule Orally Once a day Active (20 sources) Start: 04-02-2023 Start: 09-12-2022 End: 10-21-2022 Start: 09-12-2022 Start: 11-21-2021 End: 01-11-2022 Start: 05-18-2021 Start: 05-18-2021 End: 11-14-2021 Start: 05-30-2020 End: 06-26-2020 Start: 03-21-2020 Start: 03-21-2020 End: 05-25-2020 Start: 03-21-2020 End: 05-25-2020 Start: 03-21-2020 End: 05-25-2020 Start: 12-25-2016 End: 01-19-2020 Start: 12-25-2016 End: 05-25-2020 Start: 12-25-2016 End: 05-25-2020 Start: 12-25-2016 End: 12-22-2019 Completed/Discontinued Medications Medication Drug Class(es) Dates Sig (Normalized) Sig (Original) acetaminophen 325 mg oral tablet (20 sources) Start: 03-21-2020 End: 10-21-2022 Start: 11-19-2018 take 1 tablet by tyshawn every four hours Tylenol 325 mg Tab 325 mg = 1 tab(s), Oral, q4hr Start Date: 11/19/18 Status: Ordered take 2 tablets by mo [facility] every six hours as needed acetaminophen (TYLENOL) 325 mg tablet Take 650 mg by mouth every 6 hours as needed. 0 Active Comment on above: Take 650 mg by mouth every 6 hours as needed. aluminum hydroxide 40 mg/ml / magnesium hydroxide 40 mg/ml / simethicone 4 mg/ml oral suspension (7 sources) aluminum-magnesi um hydroxide-simethicone (MAALOX,MYLANTA,MAG-A L PLUS) 200-200-20 mg/5 mL suspension Take by mouth every 6 hours as needed. 0 Active Comment on above: Take by mouth every 6 hours as needed. amitriptyline hydrochloride 10 mg oral tablet (20 sources) Tricyclic Antidepressant Start: 11-19-2018 End: 07-17-2022 Start: 12-25-2016 End: 05-25-2020 take 10 mg by mouth once daily at bedtime amitriptyline (ELAVIL) 25 mg tablet Take 10 mg by mouth daily at bedtime. 0 Active take 1 tablet by tyshawn th once daily at bedtime amitriptyline (ELAVIL) 25 mg tablet Take 25 mg by mouth daily at bedtime. 0 Active take 1 tablet by tyshawn th every twenty-four hours Amitriptyline HCl 10 MG 1 tablet at bedtime Orally Once a day Active Comment on above: Take 25 mg by mouth daily at bedtime. Take 10 mg by mouth daily at bedtime. amoxicillin 500 mg oral capsule (7 sources) Penicillin-class Antibacterial Start: 9 take 1 capsule by mouth every eight hours amoxicillin (POLYMOX, AMOXIL) 500 mg capsule take 1 capsule by mouth every 8 hours for 7 days 0 07/02/2018 Active Comment on above: take 1 capsule by mo uth every 8 hours for 7 days amoxicillin 875 mg / clavulanate 125 mg oral tablet (20 sources) Penicillin-class Antibacterial Start: 0 End: 1 Start: 04-04-2020 End: 05-03-2020 take 1 tablet by mouth twice daily Amoxicillin-Pot Clavulanate (Augmentin) 875-125 mg tablet Discontinued 1 TAB PO Twice daily 24 01April 04, 2020 12:00am May 03, 2020 9:32am Start: 02-14-2020 End: 03-15-2020 Start: 02-14-2020 End: 03-15-2020 take 1 tablet by mouth twice daily Amoxicillin-Pot Clavulanate (Augmentin) 875-125 mg tablet Discontinued 1 TAB PO Twice daily 24 01February 14, 2020 12:00am March 15, 2020 9:52am Start: 12-25-2016 End: 10-13-2019 Ascorbic Acid / Bioflavonoid s (6 sources) Vitamin C ascorbic acid-bi oflavonoids 500-500 mg cap Take by mouth once daily. 0 Suspended ascorbic acid-bi oflavonoids 500-500 mg cap Take by mouth once daily. 0 Active Comment on above: Take by mouth once d aily. aspirin 81 mg chewable table t (20 sources) Platelet Aggregation Inhibitor, Nonsteroidal Anti-inflammatory Drug Start: 12-25-2016 End: 05-25-2020 take 1 tablet by mouth once marcia y aspirin, enteric coated (ASPIRIN, ENTERIC COATED) 81 mg EC tablet Take 81 mg by mouth once daily. 0 Active Comment on above: Take 81 mg by mouth once daily. benzocaine 7.5 mg / dextromethorphan hydrobromide 5 mg oral lozenge (20 sources) Uncompetitive T-leibph-J-aspartate Receptor Antagonist, Sigma-1 Agonist, Standardized Chemical Allergen Start: 03-21-2020 End: 05-25-2020 Start: 03-21-2020 End: 05-25-2020 take 5-7.5 mg by mouth every four hours Dextromethorphan-Benzocaine (Cepacol Sor e Throat-Cough) 5-7.5 mg Lozenge Discontinued 1 LOZENGE PO Q4H March 21, 2020 12:00am May 25, 2020 12:41pm bisacodyl 10 mg rectal suppository (7 sources) Stimulant Laxative take 10 mg rectal route once daily as needed bisacodyl (DULCOLAX) 10 mg supp 10 mg by RECTAL route once daily as needed. 0 Active Comment on above: 10 mg by RECTAL rout e once daily as needed. Calcium Carbonate / vitamin D3 (7 sources) CALCIUM CARBONATE/VITAMIN D3 (VITAMIN D-3 ORAL) Take by mouth. 0 Suspended CALCIUM CARBONAT E/VITAMIN D3 (VITAMIN D-3 ORAL) Take by mouth. 0 Active Comment on above: Take by mouth. cefditoren pivoxil 400 mg oral tablet (20 sources) Cephalosporin Antibacterial Start: 05-30-19 End: 06-27-19 take 1 tablet by mouth once daily at mealtime Cefditoren Pivoxil (Spectracef) 400 mg tablet Discontinued 200 MG PO Daily 4 May 30, 2020 12:00am June 26, 2020 2:41pm must administer with a meal/food cephalexin 500 mg oral capsule (20 sources) Cephalosporin Antibacterial Start: 08-28-19 End: 09-13-19 Start: 09-16-2020 End: 05-18-2021 Start: 09-16-2020 End: 05-18-2021 take 1000 mg by mouth every twelve hours Cephalexin Discontinued 1000 MG PO Q12H 40 September 15, 2020 11:00pm May 18, 2021 12:34pm Start: 05-03-2020 End: 05-10-2020 Start: 05-03-2020 End: 05-10-2020 take 1 capsule by mouth three times daily Cephalexin (Keflex) 500 mg capsule Discontinued 500 MG PO Three times daily 30 May 03, 2020 12:00am May 10, 2020 9:59am Start: 03-15-2020 End: 03-21-2020 Start: 03-15-2020 End: 03-21-2020 take 1 capsule by mouth every eight hours Cephalexin (Keflex) 500 mg capsule Discontinued 500 MG PO Q8H 42 March 15, 2020 12:00am March 21, 2020 9:34am cholecalciferol 0.05 mg oral capsule (20 sources) Vitamin D Start: 12-25-2016 End: 05-25-2020 clindamycin 300 mg oral caps ule (20 sources) Lincosamide Antibacterial Start: 05-03-2020 End: 05-10-2020 Start: 03-15-2020 End: 03-21-2020 Start: 03-15-2020 End: 03-21-2020 take 300 mg by mouth every eight hours Clindamycin Hcl Discontinued 300 MG PO Q8H 42 March 15, 2020 12:00am March 21, 2020 9:35am Start: 01-28-2020 End: 02-14-2020 Start: 01-28-2020 End: 02-14-2020 take 300 mg by mouth four times daily Clindamycin Hcl Discontinued 300 MG PO Four times daily January 27, 2020 11:00pm February 14, 2020 1:47pm Start: 01-19-2020 End: 01-28-2020 Start: 01-19-2020 End: 01-28-2020 Clindamycin Phosphate Discon tinued 1 APPLIC TOPICAL Once 60 January 18, 2020 11:00pm January 28, 2020 9:11am doxycycline hyclate 100 mg o ral tablet (20 sources) Tetracycline-class Drug Start: 05-25-2020 End: 05-30-2020 Start: 07-02-2018 doxycycline hy clate (VIBRAMYCIN) 100 mg capsule empagliflozin 10 mg oral tab let (20 sources) Sodium-Glucose Cotransporter 2 Inhibitor Start: 05-25-2020 End: 05-30-2020 sodium hypochlorite 2.5 mg/m l topical solution (20 sources) Start: 11-14-2021 End: 01-11-2022 Start: 05-25-2020 End: 09-16-2020 Start: 05-25-2020 End: 09-16-2020 Sodium Hypochlorite Disconti nued 1 APPLIC TOPICAL 3 Times a week May 25, 2020 12:00am September 16, 2020 4:24pm Start: 01-19-2020 End: 03-21-2020 Start: 01-19-2020 End: 03-21-2020 Sodium Hypochlorite (Dakin's Solution) 0.25 % solution Discontinued 1 APPLIC TOPICAL Daily 473 March 15, 2020 12:00am March 21, 2020 9:35am 3 ml insulin detemir 100 unt /ml pen injector (20 sources) Insulin Analog Start: 05-25-2020 End: 05-18-2021 Start: 05-25-2020 End: 05-18-2021 Start: 11-19-2018 Levemir 100 un its/mL Injection-Insulin SubCutaneous, Refills(s) 0 Start Date: 11/19/18 Status: Ordered Start: 12-25-2016 End: 03-21-2020 Levemir FlexTouc h 100 UNIT/ML as directed Subcutaneous 42 units in the am Active INSULIN DETEMIR (LEVEMIR FLEXPEN SUBCUTANEOUS) Inject subcutaneously. 0 Suspended Levemir FlexTouc h 100 UNIT/ML SOPN 42 units Quantity: 0 Refills: 0 Ordered: 21-Feb-2022 DO Active INSULIN DETEMIR (LEVEMIR FLEXPEN SUBCUTANEOUS) Inject subcutaneously. 0 Active Levemir FlexTouc h 100 UNIT/ML Subcutaneous Solution Pen-injector 42 units Quantity: 0 Refills: 0 Ordered: 21-Feb-2022 DO Active Levemir FlexTouc h 100 UNIT/ML as directed Subcutaneous 40 units in the am Active inject 30 [IU] by zamora bcutaneous injection once daily, then inject 40 [IU] by subcutaneous injection in the morning Levemir FlexTouch 100 UNIT/ML inject 30 units subcutaneously daily Subcutaneous 40 units in the am Active Comment on above: Inject subcutaneousl y. Lactobacillus Combination No.4 (Probiotic) 3 billion cell Capsule (20 sources) Start: 020 End: take 3 capsules by mouth once daily Lactobacillus Combination No.4 (Probiotic) 3 billion cell Capsule Discontinued 3000 MMU CELLS PO Daily March 21, 2020 12:00am May 25, 2020 12:43pm Start: 03-21-2020 End: 05-25-2020 take 3 capsules by mouth once daily Lactobacillus Combination No.4 (Probiotic) 3 billion cell Capsule Discontinued 3000 MMU CELLS PO Daily March 21, 2020 1:00am May 25, 2020 1:43pm Start: 12-25-2016 End: 12-22-2019 Lactobacillus Combination No .4 (Probiotic) 3 billion cell Capsule Discontinued December 24, 2016 11:00pm December 22, 2019 7:19am Start: 12-25-2016 End: 12-22-2019 Lactobacillus Combination No .4 (Probiotic) 3 billion cell Capsule Discontinued December 25, 2016 12:00am December 22, 2019 8:19am levoFLOXacin 750 mg oral tab let (20 sources) Quinolone Antimicrobial Start: 10-24-2022 End: 01-17-2023 Start: 05-22-2020 End: 05-25-2020 Start: 10-13-2019 End: 10-27-2019 Start: 10-13-2019 End: 10-27-2019 take 1 tablet by mouth once daily Levofloxacin (Levaquin) 750 mg Tablet Discontinued 750 MG PO Daily October 12, 2019 11:00pm October 27, 2019 9:04am 3 ml liraglutide 6 mg/ml pen injector (20 sources) GLP-1 Receptor Agonist Start: 05-25-2020 End: 09-16-2020 Start: 10-13-2019 End: 03-21-2020 Start: 11-19-2018 inject 1.8 mg by sub cutaneous injection once daily Victoza 1.8 mg, SubCutaneous, Daily Start Date: 11/19/18 Status: Ordered LIRAGLUTIDE (CHANO TOZA 2-LEO SUBCUTANEOUS) Inject subcutaneously. As directed 0 Suspended LIRAGLUTIDE (CHANO TOZA 2-LEO SUBCUTANEOUS) Inject subcutaneously. As directed 0 Active Comment on above: Inject subcutaneousl y. As directed loteprednol etabonate 5 mg/m l ophthalmic suspension (20 sources) Start: 11-14-2021 End: 07-17-2022 Start: 11-14-2021 End: 07-17-2022 take 1 drop(s) into the eye(s) four times daily Loteprednol Etabonate Discontinued 1 DROPS EYE-LEFT Four times daily November 13, 2021 11:00pm July 17, 2022 6:26am take 1 drop(s) into the eye(s) four times daily magnesium hydroxide 80 mg/ml oral suspension (7 sources) magnesium hydrox caron (MOM) 400 mg/5 mL suspension Take by mouth once daily as needed. 0 Active Comment on above: Take by mouth once d aily as needed. meropenem 500 mg injection (20 sources) Penem Antibacterial Start: 09-13-19 End: 10-25-19 Multivitamin preparation (20 sources) Start: 12-26-19 End: 05-25-19 take 1 tablet by mouth once daily Multivitamin Discontinued 1 TAB PO Daily December 24, 2016 11:00pm May 25, 2020 12:43pm Start: 12-25-2016 End: 05-25-2020 take 1 tablet by mouth once daily Multivitamin Discontinued 1 TAB PO Daily December 25, 2016 12:00am May 25, 2020 1:43pm take 1 tablet by tyshawn th once daily MULTIVITAMIN (MULTIPLE VITAMIN ORAL) Take 1 tablet by mouth once daily. 0 Suspended take 1 tablet by tyshawn th once daily MULTIVITAMIN (MULTIPLE VITAMIN ORAL) Take 1 tablet by mouth once daily. 0 Active Comment on above: Take 1 tablet by tyshawn th once daily. Nacl-Zn Ac-Vit B6-Citric Acid (Wound Cleanser) Harrison,Non-Aerosol (20 sources) Start: 05-18-2021 End: 11-14-2021 Nacl-Zn Ac-Vit B6-Citric Acid (Wound Cleanser) Harrison,Non-Aerosol Discontinued 1 SPRAY IRRIGATION Daily May 18, 2021 12:00am November 14, 2021 12:21pm Start: 05-18-2021 End: 11-14-2021 Nacl-Zn Ac-Vit B6-Citric Aci d (Wound Cleanser) Harrison,Non- Aerosol Discontinued 1 SPRAY IRRIGATION Daily May 18, 2021 1:00am November 14, 2021 1:21pm ondansetron 4 mg oral tablet (7 sources) Serotonin-3 Receptor Antagonist take 1 tablet by mouth every eight hours as needed ondansetron (ZOFRAN) 4 mg tablet Take 4 mg by mouth every 8 hours as needed. 0 Active Comment on above: Take 4 mg by mouth e very 8 hours as needed. plecanatide 3 mg oral tablet (20 sources) Start: 7 End: 0 Plecanatide (Trulance) 3 mg Tablet (20 sources) Start: 0 End: 1 take 1 tablet by mouth once daily Plecanatide (Trulance) 3 mg Tablet Discontinued 3 MG PO Daily March 21, 2020 12:00am May 25, 2020 12:44pm Start: 03-21-2020 End: 05-25-2020 take 1 tablet by mouth once daily Plecanatide (Trulance) 3 mg Tablet Discontinued 3 MG PO Daily March 21, 2020 1:00am May 25, 2020 1:44pm Potassium (7 sources) POTASSIUM ORAL T tita by mouth. 0 Suspended POTASSIUM ORAL T tita by mouth. 0 Active Comment on above: Take by mouth. PSEUDOEPHEDRINE/ACETAMINOPHE N (CEPACOL SORE THROAT ORAL) (7 sources) PSEUDOEPHEDRINE/ ACETAMINOPHEN (CEPACOL SORE THROAT ORAL) Take by mouth. 0 Suspended PSEUDOEPHEDRINE/ ACETAMINOPHEN (CEPACOL SORE THROAT ORAL) Take by mouth. 0 Active Comment on above: Take by mouth. saccharomyces boulardii 250 mg oral capsule (20 sources) Start: 11-21-2021 End: 10-21-2022 Start: 11-21-2021 take 1 capsule by [facility] twice daily at mealtime Saccharomyces Boulardii (Florastor) 250 mg Capsule Active 250 MG PO Twice daily with meals 0 November 21, 2021 12:00am Saccharomyces lalo ulardii Active 0.25 mg, 0.5 mg dose 1.5 ml semaglutide 1.34 mg/ml pen injector (20 sources) Start: 05-25-2020 End: 05-30-2020 sodium bicarbonate 650 mg or al tablet (20 sources) Start: 11-21-2021 End: 04-02-2023 Start: 11-21-2021 End: 04-02-2023 Start: 11-21-2021 End: 09-12-2022 Start: 11-21-2021 take 650 mg by mouth three times daily Sodium Bicarbonate Active 650 MG PO Three times daily 0 November 21, 2021 12:00am take 2 tablets by mo uth every eight hours Sodium Bicarbonate 650 MG 2 TABLETS Orally THREE TIMES A DAY Active take 1 tablet by tyshawn th every eight hours Sodium Bicarbonate 650 MG 1 TABLET Orally THREE TIMES A DAY Active sulfamethoxazole 800 mg / trimethoprim 160 mg oral tablet (20 sources) Dihydrofolate Reductase Inhibitor Antibacterial, Sulfonamide Antimicrobial Start: 08-27-2022 End: 10-21-2022 Start: 08-27-2022 End: 10-21-2022 take 1 tablet by mouth every twelve hours Sulfamethoxazole-Trimethoprim (Bactrim D s) 800-160 mg tablet Discontinued 1 TAB PO Q12H 14 August 26, 2022 11:00pm October 21, 2022 11:42am sulfamethoxazole -trimethoprim (BACTRIM DS,SEPTRA DS) 800-160 mg per tablet Take by mouth twice daily. 0 Active Comment on above: Take by mouth twice daily. thioctic acid 300 mg oral ca psule (20 sources) Start: 03-21-2020 End: 10-21-2022 take 1 capsule by mouth once luis ly Alpha-Lipoic Acid 200 MG Oral Capsule TAKE 1 CAPSULE Daily Quantity: 0 Refills: 0 Ordered: 21-Feb-2022 DO Active Vancomycin - Pharmacy Dosing (5 sources) Start: 09-12-2022 End: 10-21-2022 take 1 g intravenously once Vancomycin - Pharmacy Dosing Discontinued 1 EACH IV Once September 11, 2022 11:00pm October 21, 2022 11:42am 1 gm IV q 48 with pharmacy to dose for 40 days Vancomycin In Dextrose 5 % (20 sources) Start: 11-21-2021 End: 01-11-2022 Vancomycin In Dextrose 5 % Discontinued 0 .ROUTE .COMPLEX 4999November 20, 2021 11:00pm January 11, 2022 3:03pm For a TOTAL of 10 days of treatment Start: 11-21-2021 End: 01-11-2022 Vancomycin In Dextrose 5 % D iscontinued 0 .ROUTE .COMPLEX [id number] 21, 2021 12:00am January 11, 2022 4:03pm For a TOTAL of 10 days of treatment Start: 11-21-2021 Vancomycin In Dextrose 5 % Active 0 .ROUTE .COMPLEX 4999November 21, 2021 12:00am For a TOTAL of 10 days of treatment Vitamin B Complex (20 sources) Start: 12-25-2016 End: 05-25-2020 take 1 capsule by mouth once daily Vitamin B Complex Discontinued 1 CAP PO Daily December 24, 2016 11:00pm May 25, 2020 12:45pm Start: 12-25-2016 End: 05-25-2020 take 1 capsule by mouth once daily Vitamin B Complex Discontinued 1 CAP PO Daily December 25, 2016 12:00am May 25, 2020 1:45pm VITAMIN B COMPLE X (B-COMPLEX ORAL) Take by mouth. 0 Suspended VITAMIN B COMPLE X (B-COMPLEX ORAL) Take by mouth. 0 Active Vitamin B Comple x - Orally Active Comment on above: Take by mouth. Problems Active Problems Problem Classification Problem Date Documented Date Episodic/Chronic Acute and unspecified renal failure (20 sources) Injury of kidney; Translations: [Acute kidney failure, unspecified] Onset: 11-15-19 22 06-26-2020 Episodic Acute cerebrovascular disease (6 sources) Cerebrovascular accident 10-16-2018 Chronic Acute myocardial infarction (6 sources) Myocardial infarction 10-16-2018 Chronic Administrative/social admission (6 sources) Unable to transfer from wheelchair to chair; Translations: [Other symptoms involving nervous and musculoskeletal systems] Episodic Alcohol-related disorders (20 sources) Alcohol abuse; Translations: [Alcohol abuse, uncomplicated] 06-26-2020 Chronic Anxiety disorders (6 sources) Anxiety disorder 10-16-2018 Chronic Bacterial infection; unspecified site (20 sources) Bacterial infection due to Proteus mirabilis; Translations: [Other bacterial infections of unspecified site] 06-26-2020 Episodic Calculus of urinary tract (20 sources) Kidney stone; Translations: [Calculus of kidney] Onset: 01-04-20 Resolved : 03-14-20 Episodic Chronic kidney disease (20 sources) Chronic kidney disease stage 3; Translations: [Chronic kidney disease, stage 3 (moderate)] Onset: 03-25-20 Resolved : 03-14-20 Chronic Chronic kidney disease (5 sources) Chronic kidney disease; Translations: [Chronic kidney disease, stage 3b N18.32] Onset: 01-04-20 Resolved : 01-04-20 Chronic ulcer of skin (20 sources) Pressure ulcer of unspecified site, stage 3; Translations: [Pressure injury, stage 3] Onset: 11-15-19 Resolved : 12-20-1901-26-2020 Chronic Complication of device; implant or graft (20 sources) Obstruction of urinary stent; Translations: [Other mechanical complication of nephrostomy catheter, initial encounter] 07-17-2022 Episodic Complications of surgical procedures or medical care (20 sources) Complication of external stoma of urinary tract; Translations: [Other complication of incontinent external stoma of urinary tract] 07-17-2022 Episodic Coronary atherosclerosis and other heart disease (10 sources) Coronary atherosclerosis; Translations: [Coronary atherosclerosis of [place] coronary artery] Onset: 07-25-1907-17-2022 Chronic Deficiency and other anemia (17 sources) Anemia secondary to renal failure; Translations: [Anemia in chronic kidney disease] Chronic Deficiency and other anemia (6 sources) Anemia in chronic kidney disease; Translations: [Anemia secondary to renal failure D63.1] Onset: 01-04-20 Resolved : 03-14-20 Chronic Deficiency and other anemia (20 sources) Anemia; Translations: [Anemia, unspecified] Onset: 03-25-2001-26-2020 Episodic Deficiency and other anemia (20 sources) Anemia, unspecified; Translations: [Anemia, unspecified] Onset: 11-15-1911-21-2021 Episodic Diabetes mellitus with complications (20 sources) Renal disorder due to type 2 diabetes mellitus; Translations: [Type 2 diabetes mellitus with diabetic nephropathy] Onset: 01-04-20 Resolved : 03-14-20 Chronic Diabetes mellitus without complication (20 sources) Diabetes mellitus; Translations: [Type 2 diabetes mellitus without complications] Onset: 09-14-1901-26-2020 Chronic Diabetes mellitus without complication (2 sources) Diabetes mellitus without complication; Translations: [Type 2 diabetes mellitus with foot ulcer] Onset: 09-14-19 Diseases of white blood cells (20 sources) Leukocytosis; Translations: [Elevated white blood cell count, unspecified] Onset: 03-25-2011-19-2021 Chronic Disorders of lipid metabolism (20 sources) Mixed hyperlipidemia; Translations: [Mixed hyperlipidemia] Onset: 07-19-19 Resolved : 03-14-20 Chronic Esophageal disorders (9 sources) Gastroesophageal reflux disease; Translations: [Gastroesophageal reflux disease without esophagitis] Onset: 07-18-19 23 10-16-2018 Chronic Esophageal disorders (17 sources) Disorder of esophagus; Translations: [Other specified diseases of esophagus] Episodic Essential hypertension (20 sources) Hypertensive disorder; Translations: [Essential (primary) hypertension] 10-16-2018 Chronic Fluid and electrolyte disorders (20 sources) Metabolic acidosis, increased anion gap (IAG); Translations: [Acidosis] Onset: 11-15-19 22 06-26-2020 Episodic Genitourinary symptoms and ill-defined conditions (6 sources) Post-micturition incontinence 11-19-2018 Chronic Hepatitis (17 sources) Chronic hepatitis C; Translations: [Chronic viral hepatitis C] Chronic Hepatitis (6 sources) Viral hepatitis C 10-16-2018 Episodic Hyperplasia of prostate (14 sources) Benign prostatic hypertrophy with outflow obstruction; Translations: [Benign prostatic hyperplasia with lower urinary tract symptoms] Onset: 12-08-19 Chronic Hypertension with complications and secondary hypertension (20 sources) Chronic kidney disease due to hypertension; Translations: [Hypertensive chronic kidney disease with stage 1 through stage 4 chronic kidney disease, or unspecified chronic kidney disease] Onset: 01-04-20 Resolved : 07-03-19 Chronic Immunizations and screening for infectious disease (7 sources) Patient encounter status; Translations: [Other specified vaccination] Episodic Infective arthritis and osteomyelitis (except that caused by tuberculosis or sexually transmitted disease) (20 sources) Osteomyelitis of ankle AND/OR foot; Translations: [Osteomyelitis, unspecified] Onset: 11-15-1911-14-2021 Chronic Mood disorders (6 sources) Depressive disorder 10-16-2018 Chronic Osteoarthritis (6 sources) Arthritis 10-16-2018 Chronic Other aftercare (4 sources) Long-term current use of drug therapy; Translations: [[facility] (current) use of antithrombotics/antiplate lets] Onset: 12-08-19 Episodic Other circulatory disease (5 sources) Acquired arteriovenous fistula aneurysm; Translations: [Arteriovenous fistula, acquired] Chronic Other connective tissue disease (17 sources) Pain in left foot; Translations: [Pain in left foot] Episodic Other diseases of kidney and ureters (20 sources) Hemorrhage of kidney; Translations: [Other specified disorders of kidney and ureter] 07-17-2022 Chronic Other diseases of kidney and ureters (5 sources) Hyperparathyroidism due to renal insufficiency; Translations: [Secondary hyperparathyroidism of renal origin] Chronic Other diseases of kidney and ureters (1 source) Secondary hyperparathyroidism of renal origin Chronic Other diseases of kidney and ureters (20 sources) Hydroureteronephrosis ; Translations: [Unspecified hydronephrosis] Onset: 11-15-19 22 06-26-2020 Episodic Other diseases of kidney and ureters (20 sources) Hydronephrosis; Translations: [Unspecified hydronephrosis] Onset: 12-08-19 22 11-19-2021 Episodic Other diseases of kidney and ureters (7 sources) Stricture of ureter; Translations: [Crossing vessel and stricture of ureter without hydronephrosis] Onset: 06-08-19 Episodic Other disorders of stomach and duodenum (20 sources) Gastroparesis syndrome; Translations: [Gastroparesis] Onset: 07-18-1907-17-2022 Episodic Other endocrine disorders (20 sources) Hypoglycemia; Translations: [Hypoglycemia, unspecified] 10-13-2022 Chronic Other gastrointestinal disorders (17 sources) Chronic idiopathic constipation; Translations: [Other constipation] Episodic Other gastrointestinal disorders (17 sources) Abnormal feces; Translations: [Other fecal abnormalities] Episodic Other gastrointestinal disorders (17 sources) Constipation; Translations: [Constipation, unspecified] Episodic Other injuries and conditions due to external causes (20 sources) Local infection of wound; Translations: [Other injury of unspecified body region, initial encounter] 09-10-2022 Episodic Other injuries and conditions due to external causes (15 sources) Other injury of unspecified body region, initial encounter; Translations: [Posttraumatic wound infection not elsewhere classified] 09-10-2022 Episodic Other male genital disorders (7 sources) Male erectile dysfunction, unspecified; Translations: [Erectile dysfunction] Onset: 06-08-19 Chronic Peripheral and visceral atherosclerosis (20 sources) Peripheral vascular disease; Translations: [Peripheral vascular disease, unspecified] Onset: 01-04-20 Resolved : 03-14-20 Chronic Residual codes; unclassified (20 sources) Unable to perform personal care activity; Translations: [Other specified health status] 05-18-2021 Episodic Residual codes; unclassified (20 sources) Left against medical advice; Translations: [Procedure and treatment not carried out because of patient's decision for other reasons] 10-21-2022 Episodic Residual codes; unclassified (1 source) Procedure and treatment not carried out because of patient's decision for other reasons; Translations: [Surgical or other procedure not carried out because of patient's decision] 10-24-2022 Episodic Septicemia (except in labor) (20 sources) Sepsis; Translations: [Sepsis, unspecified organism] Onset: 11-15-1911-14-2021 Episodic Skin and subcutaneous tissue infections (20 sources) Cellulitis and abscess of lower limb; Translations: [Cellulitis of right lower limb] Onset: 11-15-19 22 11-19-2021 Episodic Substance-related disorders (20 sources) Smoker; Translations: [Nicotine dependence, unspecified, uncomplicated] Onset: 07-19-1911-19-2018 Chronic Comment on above: 1 pack every 3 days; Unclassified (6 sources) Patient encounter status 12-07-2021 Unclassified (1 source) Acidosis, unspecified; Translations: [Acidosis, unspecified] Onset: 08-30-19 Unclassified (1 source) Other mechanical complication of nephrostomy catheter, initial encounter; Translations: [Other mechanical complication of nephrostomy catheter, initial encounter] Onset: 07-17-19 23 Unclassified (1 source) Encounter for preprocedural cardiovascular examination; Translations: [Encounter for preprocedural cardiovascular examination] Onset: 03-05-20 Unclassified (1 source) Encounter for preprocedural laboratory examination; Translations: [Encounter for preprocedural laboratory examination] Onset: 01-12-20 22 Unclassified (1 source) Retention of urine, unspecified; Translations: [Retention of urine, unspecified] Onset: 12-06-19 Urinary tract infections (20 sources) Urinary tract infectious disease; Translations: [Urinary tract infection, site not specified] 09-16-2020 Episodic Viral infection (20 sources) COVID-19; Translations: [Severe acute respiratory syndrome coronavirus 2 (SARS-CoV-2) detected] 11-19-2021 Episodic Viral infection (1 source) COVID-19; Translations: [COVID-19] Onset: 11-15-19 Past or Other Problems Problem Classification Problem Date Documented Date Episodic/Chronic Genitourinary symptoms and ill-defined conditions (20 sources) Increased frequency of urination; Translations: [Nocturia] Onset: 07-17-2022 10-16-2018 Episodic Open wounds of extremities (1 source) Unspecified open wound, right lower leg, initial encounter Onset: 09-25-2021 Resolved: 09-25-2021 Episodic Other aftercare (1 source) [facility] (current) use of antibiotics Onset: 12-06-2021 Resolved: 12-06-2021 Episodic Other aftercare (1 source) medical terminologist (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) use of insulin; Translations: [[facility] (current) use of insulin] Onset: 11-14-2021 Episodic Other diseases of kidney and ureters (20 sources) Unspecified hydronephrosis; Translations: [Hydronephrosis] Onset: 11-14-2021 11-21-2021 Episodic Other diseases of veins and lymphatics (7 sources) Venous stasis; Translations: [Venous (peripheral) insufficiency, unspecified] Resolved: 02-21-2022 Episodic Other diseases of veins and lymphatics (3 sources) Peripheral venous insufficiency; Translations: [Venous insufficiency (chronic) (peripheral)] Onset: 04-06-2018 07-17-2022 Episodic Other screening for suspected conditions (not mental disorders or infectious disease) (1 source) Other specified abnormal findings of blood chemistry; Translations: [Other specified abnormal findings of blood chemistry] Onset: 12-04-2021 Episodic Unclassified (7 sources) Patient status finding; Translations: [Patient new to provider] Results Test Name Value Interpretation Reference Range Facility [facility]ine aminotransferase [En zymatic activity/volume] in Serum or PlasmaOrdered By: Jose M Landry on 04-22-2023 ALT [Catalytic activity/Vol] 12 U/L 7-52 [facility] Albumin [Mass/volume] in Ser um or Plasma by Bromocresol green (BCG) dye binding methoOrdered By: Jose M Landry on 04-22-2023 Albumin BCG dye [Mass/Vol] 3.5 g/dL 3.5-5.7 [facility] Alkaline phosphatase [Enzyma tic activity/volume] in Serum or PlasmaOrdered By: Jose M Landry on 04-22-2023 ALP [Catalytic activity/Vol] 132 U/L 34-104 [facility] Anisocytosis LM Ql (Bld)Orde red By: Jose M Landry on 04-22-2023 Anisocytosis Ql (Bld) Marked [facility] Aspartate aminotransferase [ Enzymatic activity/volume] in Serum or PlasmaOrdered By: Jose M Landry on 04-22-2023 AST [Catalytic activity/Vol] 19 U/L 13-39 [facility] Basophils Auto (Bld) [#/Vol] Ordered By: Jose M Landry on 04-22-2023 Basophils (Bld) [#/Vol] 0.1 10*3/uL 0.0-0.2 [facility] Basophils/100 WBC Auto (Bld) Ordered By: Jose M Landry on 04-22-2023 Basophils/100 WBC (Bld) 0.8 % . [facility] Bilirubin.total [Mass/volume ] in Serum or PlasmaOrdered By: Jose M Landry on 04-22-2023 Bilirubin [Mass/Vol] 0.3 mg/dL 0.3-1.0 [facility] Calcium [Mass/volume] in Ser um or PlasmaOrdered By: Jose M Landry on 04-22-2023 Calcium [Mass/Vol] 7.5 mg/dL 8.6-10.3 [facility] Carbon dioxide, total [Moles /volume] in Serum or PlasmaOrdered By: Jose M Landry on 04-22-2023 CO2 [Moles/Vol] 20.9 mmol/L 21.0-31.0 [facility] Chloride [Moles/volume] in S leti or PlasmaOrdered By: Jose M Landry on 04-22-2023 Chloride [Moles/Vol] 109 mmol/L 98-107 [facility] Creatinine [Mass/volume] in Serum or PlasmaOrdered By: Jose M Landry on 04-22-2023 Creatinine [Mass/Vol] 5.95 mg/dL 0.70-1.[address] [facility] Eosinophils Auto (Bld) [#/Vo l]Ordered By: Jose M Landry on 04-22-2023 Eosinophils (Bld) [#/Vol] 0.4 10*3/uL 0.0-0.45 [facility] Eosinophils/100 WBC Auto (Bl d)Ordered By: Jose M Landry on 04-22-2023 Eosinophils/100 WBC (Bld) 4.1 % . [facility] Erythrocyte distribution wid th Auto (RBC) [Ratio]Ordered By: Jose M Landry on 04-22-2023 Erythrocyte distribution width (RBC) [Ratio] 19.2 % 12.0-14.8 [facility] Globulin Calc (S) [Mass/Vol] Ordered By: Jose M Landry on 04-22-2023 Globulin (S) [Mass/Vol] 4.3 g/dL [facility] Glucose [Mass/volume] in Ser um or PlasmaOrdered By: Jose M Landry on 04-22-2023 Glucose [Mass/Vol] 107 mg/dL 70-100 [facility] Hematocrit Auto (Bld) [Volum e fraction]Ordered By: Jose M Landry on 04-22-2023 Hematocrit (Bld) [Volume fraction] 27.2 % 38.8-50.0 [facility] Hemoglobin [Mass/volume] in BloodOrdered By: Jose M Landry on 04-22-2023 Hemoglobin (Bld) [Mass/Vol] 8.8 g/dL 13.0-17.0 [facility] Hypochromia LM Ql (Bld)Order ed By: Jose M Landry on 04-22-2023 Hypochromia Ql (Bld) Moderate [facility] Leukocytes [#/volume] correc lakesha for nucleated erythrocytes in Blood by Automated counOrdered By: Jose M Landry on 04-22-2023 WBC corrected for nucl RBC Auto (Bld) [#/Vol] 9.9 10*3/uL 4.1-10.5 [facility] Lymphocytes Auto (Bld) [#/Vo l]Ordered By: Jose M Landry on 04-22-2023 Lymphocytes (Bld) [#/Vol] 4.2 10*3/uL 1.00-4.8 [facility] Lymphocytes/100 WBC Auto (Bl d)Ordered By: Jose M Landry on 04-22-2023 Lymphocytes/100 WBC (Bld) 42.5 % . [facility] MCH Auto (RBC) [Entitic mass ]Ordered By: Jose M Landry on 04-22-2023 MCH (RBC) [Entitic mass] 32.1 pg 27.5-35.2 [facility] MCHC Auto (RBC) [Mass/Vol]Or dered By: Jose M Landry on 04-22-2023 MCHC (RBC) [Mass/Vol] 32.4 g/dL 32.5-35.[address] [facility] MCV Auto (RBC) [Entitic vol] Ordered By: Jose M Landry on 04-22-2023 MCV (RBC) [Entitic vol] 99.2 fL 83.5-101 [facility] Macrocytes LM Ql (Bld)Ordere d By: Jose M Landry on 04-22-2023 Macrocytes Ql (Bld) Marked [facility] Monocytes Auto (Bld) [#/Vol] Ordered By: Jose M Landry on 04-22-2023 Monocytes (Bld) [#/Vol] 0.9 10*3/uL 0.0-0.8 [facility] Monocytes/100 WBC Auto (Bld) Ordered By: Jose M Landry on 04-22-2023 Monocytes/100 WBC (Bld) 8.9 % . [facility] Neutrophils Auto (Bld) [#/Vo l]Ordered By: Jose M Landry on 04-22-2023 Neutrophils (Bld) [#/Vol] 4.3 10*3/uL 1.8-7.7 [facility] Neutrophils/100 WBC Auto (Bl d)Ordered By: Jose M Landry on 04-22-2023 Neutrophils/100 WBC (Bld) 43.7 % . [facility] No Panel InformationOrdered By: Jose M Landry on 04-22-2023 9.349 mL/Min [facility] N/A [facility] Nucleated erythrocytes [Pres ence] in Blood by Automated countOrdered By: Jose M Landry on 04-22-2023 Nucleated RBC Auto Ql (Bld) 0.1 /100{WBC} 0-0.5 [facility] Ovalocyte detectionOrdered B y: Jose M Landry on 04-22-2023 Ovalocytes LM Ql (Bld) Slight [facility] Platelet adequacy [Presence] in Blood by Light microscopyOrdered By: Jose M Landry on 04-22-2023 Platelets LM Ql (Bld) Normal Normal [facility] Platelet mean volume Auto (B ld) [Entitic vol]Ordered By: Jose M Landry on 04-22-2023 Platelet mean volume (Bld) [Entitic vol] 9.8 fL 6.6-10.1 [facility] Platelet morphology finding [Identifier] in BloodOrdered By: Jose M Landry on 04-22-2023 Platelet morphology finding Nom (Bld) N/A [facility] Platelets Auto (Bld) [#/Vol] Ordered By: Jose M Landry on 04-22-2023 Platelets (Bld) [#/Vol] 221 10*3/uL 150-450 [facility] Platelets Large [Presence] i n Blood by Light microscopyOrdered By: Jose M Landry on 04-22-2023 Platelets Large LM Ql (Bld) Slight [facility] Poikilocytosis [Presence] in Blood by Light microscopyOrdered By: Jose M Landry on 04-22-2023 Poikilocytosis LM Ql (Bld) Moderate [facility] Polychromasia [Presence] in Blood by Light microscopyOrdered By: Jose M Landry on 04-22-2023 Polychromasia LM Ql (Bld) Slight [facility] Potassium [Moles/volume] in Serum or PlasmaOrdered By: Jose M Landry on 04-22-2023 Potassium [Moles/Vol] 4.6 mmol/L 3.5-5.[address] [facility] Protein [Mass/volume] in Ser um or PlasmaOrdered By: Jose M Landry on 04-22-2023 Protein [Mass/Vol] 7.8 g/dL 6.4-8.9 [facility] RBC Auto (Bld) [#/Vol]Ordere d By: Jose M Landry on 04-22-2023 RBC (Bld) [#/Vol] 2.74 10*6/uL 3.90-5.60 [facility] RBC morphologyOrdered By: Shanti Landry on 04-22-2023 RBC morphology finding Nom (Bld) N/A [facility] Schistocytes [Presence] in B lood by Light microscopyOrdered By: Jose M Landry on 04-22-2023 Schistocytes LM Ql (Bld) Slight [facility] Serum or plasma albumin/glob ulin mass ratioOrdered By: Jose M Landry on 04-22-2023 Albumin/Globulin [Mass ratio] 0.8 {ratio} [facility] Serum or plasma anion gap de terminationOrdered By: Jose M Landry on 04-22-2023 Anion gap [Moles/Vol] 15.7 mmol/L 6.0-15.0 [facility] Sodium [Moles/volume] in Ser um or PlasmaOrdered By: Jose M Landry on 04-22-2023 Sodium [Moles/Vol] 141 mmol/L 136-145 [facility] Target cellsOrdered By: Vivek Landry on 04-22-2023 Target cells LM Ql (Bld) Slight [facility] Urea nitrogen [Mass/volume] in Serum or PlasmaOrdered By: Jose M Landry on 04-22-2023 Urea nitrogen [Mass/Vol] 61 mg/dL 7-25 [facility] WBC Auto (Bld) [#/Vol]Ordere d By: Jose M Landry on 04-22-2023 WBC (Bld) [#/Vol] 9.9 10*3/uL 4.1-10.5 [facility] Anisocytosis LM Ql (Bld)Orde red By: Brandan Cruz on 04-16-2023 Anisocytosis Ql (Bld) Moderate [facility] Band form neutrophils/100 WB C Manual cnt (Bld)Ordered By: Brandan Cruz on 04-16-2023 Band form neutrophils/100 WBC (Bld) 1 % 0-5 [facility] Basophils Auto (Bld) [#/Vol] Ordered By: Brandan Cruz on 04-16-2023 Basophils (Bld) [#/Vol] N/A [facility] Basophils/100 WBC Auto (Bld) Ordered By: Brandan Cruz on 04-16-2023 Basophils/100 WBC (Bld) N/A [facility] Calcium [Mass/volume] in Ser um or PlasmaOrdered By: Pedro Gutner on 04-16-2023 Calcium [Mass/Vol] 7.9 mg/dL 8.6-10.3 [facility] Carbon dioxide, total [Moles /volume] in Serum or PlasmaOrdered By: Pedro Gunter on 04-16-2023 CO2 [Moles/Vol] 21.8 mmol/L 21.0-31.0 [facility] Chloride [Moles/volume] in S leti or PlasmaOrdered By: Pedro Gunter on 04-16-2023 Chloride [Moles/Vol] 109 mmol/L 98-107 [facility] Creatinine [Mass/volume] in Serum or PlasmaOrdered By: Pedro Gunter on 04-16-2023 Creatinine [Mass/Vol] 5.91 mg/dL 0.70-1.[address] [facility] Eosinophils Auto (Bld) [#/Vo l]Ordered By: Brandan Cruz on 04-16-2023 Eosinophils (Bld) [#/Vol] N/A [facility] Eosinophils/100 WBC Auto (Bl d)Ordered By: Brandan Cruz on 04-16-2023 Eosinophils/100 WBC (Bld) N/A [facility] Eosinophils/100 WBC Manual c nt (Bld)Ordered By: Brandan Cruz on 04-16-2023 Eosinophils/100 WBC (Bld) 3 % 1-3 [facility] Erythrocyte distribution wid th Auto (RBC) [Ratio]Ordered By: Brandan Cruz on 04-16-2023 Erythrocyte distribution width (RBC) [Ratio] 19.3 % 12.0-14.8 [facility] Giant platelets/100 leukocyt es [Ratio] in Blood by Manual countOrdered By: Brandan Cruz on 04-16-2023 Giant platelets/100 WBC Manual cnt (Bld) [Ratio] 1 /100{WBC} [facility] Glucose Glucometer (BldC) [M ass/Vol]Ordered By: Fawad Rocha on 04-16-2023 Glucose [Mass/Vol] 183 mg/dL [facility] Glucose [Mass/volume] in Ser um or PlasmaOrdered By: Pedro Gunter on 04-16-2023 Glucose [Mass/Vol] 150 mg/dL 70-100 [facility] Hematocrit Auto (Bld) [Volum e fraction]Ordered By: Brandan Cruz on 04-16-2023 Hematocrit (Bld) [Volume fraction] 27.5 % 38.8-50.0 [facility] Hemoglobin [Mass/volume] in BloodOrdered By: Brandan Cruz on 04-16-2023 Hemoglobin (Bld) [Mass/Vol] 8.7 g/dL 13.0-17.0 [facility] Leukocytes [#/volume] correc lakesha for nucleated erythrocytes in Blood by Automated counOrdered By: Brandan Cruz on 04-16-2023 WBC corrected for nucl RBC Auto (Bld) [#/Vol] 13.0 10*3/uL 4.1-10.5 [facility] Lymphocytes Auto (Bld) [#/Vo l]Ordered By: Brandan Cruz on 04-16-2023 Lymphocytes (Bld) [#/Vol] N/A [facility] Lymphocytes/100 WBC Auto (Bl d)Ordered By: Brandan Cruz on 04-16-2023 Lymphocytes/100 WBC (Bld) N/A [facility] Lymphocytes/100 WBC Manual c nt (Bld)Ordered By: Brandan Cruz on 04-16-2023 Lymphocytes/100 WBC (Bld) 43 % 18-42 [facility] MCH Auto (RBC) [Entitic mass ]Ordered By: Brandan Cruz on 04-16-2023 MCH (RBC) [Entitic mass] 31.6 pg 27.5-35.2 [facility] MCHC Auto (RBC) [Mass/Vol]Or dered By: Brandan Cruz on 04-16-2023 MCHC (RBC) [Mass/Vol] 31.8 g/dL 32.5-35.[address] [facility] MCV Auto (RBC) [Entitic vol] Ordered By: Brandan Cruz on 04-16-2023 MCV (RBC) [Entitic vol] 99.3 fL 83.5-101 [facility] Macrocytes LM Ql (Bld)Ordere d By: Brandan Cruz on 04-16-2023 Macrocytes Ql (Bld) Marked [facility] Monocytes Auto (Bld) [#/Vol] Ordered By: Brandan Cruz on 04-16-2023 Monocytes (Bld) [#/Vol] N/A [facility] Monocytes/100 WBC Auto (Bld) Ordered By: Brandan Cruz on 04-16-2023 Monocytes/100 WBC (Bld) N/A [facility] Monocytes/100 WBC Manual cnt (Bld)Ordered By: Brandan Cruz on 04-16-2023 Monocytes/100 WBC (Bld) 11 % 2-11 [facility] Neutrophils Auto (Bld) [#/Vo l]Ordered By: Brandan Cruz on 04-16-2023 Neutrophils (Bld) [#/Vol] N/A [facility] Neutrophils/100 WBC Auto (Bl d)Ordered By: Brandan Cruz on 04-16-2023 Neutrophils/100 WBC (Bld) N/A [facility] No Panel InformationOrdered By: Fawad Rocha on 04-16-2023 See comment [facility] Cleaned meter [facility] No Panel InformationOrdered By: Pedro Gunter on 04-16-2023 9.426 mL/Min [facility] 14.48 [facility] Nucleated RBC/100 WBC Manual cnt (Bld) [Ratio]Ordered By: Brandan Cruz on 04-16-2023 Nucleated RBC/100 WBC (Bld) [Ratio] 2 /100{WBC} 0-0 [facility] Nucleated erythrocytes [Pres ence] in Blood by Automated countOrdered By: Brandan Cruz on 04-16-2023 Nucleated RBC Auto Ql (Bld) N/A [facility] Platelet adequacy [Presence] in Blood by Light microscopyOrdered By: Brandan Cruz on 04-16-2023 Platelets LM Ql (Bld) Normal Normal [facility] Platelet mean volume Auto (B ld) [Entitic vol]Ordered By: Brandan Cruz on 04-16-2023 Platelet mean volume (Bld) [Entitic vol] 9.6 fL 6.6-10.1 [facility] Platelet morphology finding [Identifier] in BloodOrdered By: Brandan Cruz on 04-16-2023 Platelet morphology finding Nom (Bld) Normal Normal [facility] Platelets Auto (Bld) [#/Vol] Ordered By: Brandan Cruz on 04-16-2023 Platelets (Bld) [#/Vol] 266 10*3/uL 150-450 [facility] Polychromasia [Presence] in Blood by Light microscopyOrdered By: Brandan Cruz on 04-16-2023 Polychromasia LM Ql (Bld) [facility] Potassium [Moles/volume] in Serum or PlasmaOrdered By: Pedro Gunter on 04-16-2023 Potassium [Moles/Vol] 4.8 mmol/L 3.5-5.[address] [facility] RBC Auto (Bld) [#/Vol]Ordere d By: Brandan Cruz on 04-16-2023 RBC (Bld) [#/Vol] 2.77 10*6/uL 3.90-5.60 [facility] RBC morphologyOrdered By: Vannesa rCuz on 04-16-2023 RBC morphology finding Nom (Bld) N/A [facility] Schistocytes [Presence] in B lood by Light microscopyOrdered By: Brandan Cruz on 04-16-2023 Schistocytes LM Ql (Bld) [facility] Segmented neutrophils/100 WB C Manual cnt (Bld)Ordered By: Brandan Cruz on 04-16-2023 Segmented neutrophils/100 WBC (Bld) 41 % 50-70 [facility] Serum or plasma anion gap de terminationOrdered By: Pedro Gunter on 04-16-2023 Anion gap [Moles/Vol] 14.0 mmol/L 6.0-15.0 [facility] Sodium [Moles/volume] in Ser um or PlasmaOrdered By: Pedro Gunter on 04-16-2023 Sodium [Moles/Vol] 140 mmol/L 136-145 [facility] Target cellsOrdered By: Justin Cruz on 04-16-2023 Target cells LM Ql (Bld) [facility] Urea nitrogen [Mass/volume] in Serum or PlasmaOrdered By: Pedro Gunter on 04-16-2023 Urea nitrogen [Mass/Vol] 51 mg/dL 7-25 [facility] Variant lymphocytes/100 WBC Manual cnt (Bld)Ordered By: Brandan Cruz on 04-16-2023 Variant lymphocytes/100 WBC (Bld) 1 % 0-12 [facility] WBC Auto (Bld) [#/Vol]Ordere d By: Brandan Cruz on 04-16-2023 WBC (Bld) [#/Vol] 13.0 10*3/uL 4.1-10.5 [facility] Alanine aminotransferase [En zymatic activity/volume] in Serum or PlasmaOrdered By: Jose M Landry on 04-07-2023 ALT [Catalytic activity/Vol] 11 U/L 7-52 [facility] Albumin [Mass/volume] in Ser um or Plasma by Bromocresol green (BCG) dye binding methoOrdered By: Jose M Landry on 04-07-2023 Albumin BCG dye [Mass/Vol] 3.5 g/dL 3.5-5.7 [facility] Alkaline phosphatase [Enzyma tic activity/volume] in Serum or PlasmaOrdered By: Jose M Landry on 04-07-2023 ALP [Catalytic activity/Vol] 125 U/L 34-104 [facility] Aspartate aminotransferase [ Enzymatic activity/volume] in Serum or PlasmaOrdered By: Jose M Landry on 04-07-2023 AST [Catalytic activity/Vol] 21 U/L 13-39 [facility] Basophils Auto (Bld) [#/Vol] Ordered By: Jose M Landry on 04-07-2023 Basophils (Bld) [#/Vol] 0.1 10*3/uL 0.0-0.2 [facility] Basophils/100 WBC Auto (Bld) Ordered By: Jose M Landry on 04-07-2023 Basophils/100 WBC (Bld) 1.2 % . [facility] Bilirubin.total [Mass/volume ] in Serum or PlasmaOrdered By: Jose M Landry on 04-07-2023 Bilirubin [Mass/Vol] 0.3 mg/dL 0.3-1.0 [facility] Calcium [Mass/volume] in Ser um or PlasmaOrdered By: Jose M Landry on 04-07-2023 Calcium [Mass/Vol] 7.6 mg/dL 8.6-10.3 [facility] Carbon dioxide, total [Moles /volume] in Serum or PlasmaOrdered By: Jose M Landry on 04-07-2023 CO2 [Moles/Vol] 22.1 mmol/L 21.0-31.0 [facility] Chloride [Moles/volume] in S leti or PlasmaOrdered By: Jose M Landry on 04-07-2023 Chloride [Moles/Vol] 107 mmol/L 98-107 [facility] Creatinine [Mass/volume] in Serum or PlasmaOrdered By: Jose M Landry on 04-07-2023 Creatinine [Mass/Vol] 6.56 mg/dL 0.70-1.[address] [facility] Eosinophils Auto (Bld) [#/Vo l]Ordered By: Jose M Landry on 04-07-2023 Eosinophils (Bld) [#/Vol] 0.4 10*3/uL 0.0-0.45 [facility] Eosinophils/100 WBC Auto (Bl d)Ordered By: Jose M Landry on 04-07-2023 Eosinophils/100 WBC (Bld) 3.8 % . [facility] Erythrocyte distribution wid th Auto (RBC) [Ratio]Ordered By: Jose M Landry on 04-07-2023 Erythrocyte distribution width (RBC) [Ratio] 19.0 % 12.0-14.8 [facility] Globulin Calc (S) [Mass/Vol] Ordered By: Jose M Landry on 04-07-2023 Globulin (S) [Mass/Vol] 4.6 g/dL [facility] Glucose [Mass/volume] in Ser um or PlasmaOrdered By: Jose M Landry on 04-07-2023 Glucose [Mass/Vol] 191 mg/dL 70-100 [facility] Comment on above: ADA recommended refe rence rangeRandom Glucose Reference Range is dependent on time and content of last meal. Glucose of more than 200 mg/dL in a nonstressed, ambulatory subject supports the diagnosis of Diabetes Mellitus. Hematocrit Auto (Bld) [Volum e fraction]Ordered By: Jose M Landry on 04-07-2023 Hematocrit (Bld) [Volume fraction] 28.7 % 38.8-50.0 [facility] Hemoglobin [Mass/volume] in BloodOrdered By: Jose M Landry on 04-07-2023 Hemoglobin (Bld) [Mass/Vol] 9.2 g/dL 13.0-17.0 [facility] Leukocytes [#/volume] correc lakesha for nucleated erythrocytes in Blood by Automated counOrdered By: Jose M Landry on 04-07-2023 WBC corrected for nucl RBC Auto (Bld) [#/Vol] 9.5 10*3/uL 4.1-10.5 [facility] Lymphocytes Auto (Bld) [#/Vo l]Ordered By: Jose M Landry on 04-07-2023 Lymphocytes (Bld) [#/Vol] 3.0 10*3/uL 1.00-4.8 [facility] Lymphocytes/100 WBC Auto (Bl d)Ordered By: Jose M Landyr on 04-07-2023 Lymphocytes/100 WBC (Bld) 31.9 % . [facility] MCH Auto (RBC) [Entitic mass ]Ordered By: Jose M Landry on 04-07-2023 MCH (RBC) [Entitic mass] 31.2 pg 27.5-35.2 [facility] MCHC Auto (RBC) [Mass/Vol]Or dered By: Jose M Landry on 04-07-2023 MCHC (RBC) [Mass/Vol] 32.0 g/dL 32.5-35.6 [facility] MCV Auto (RBC) [Entitic vol] Ordered By: Jose M Landry on 04-07-2023 MCV (RBC) [Entitic vol] 97.5 fL 83.5-101 [facility] Monocytes Auto (Bld) [#/Vol] Ordered By: Jose M Landry on 04-07-2023 Monocytes (Bld) [#/Vol] 0.9 10*3/uL 0.0-0.8 [facility] Monocytes/100 WBC Auto (Bld) Ordered By: Jose M Landry on 04-07-2023 Monocytes/100 WBC (Bld) 9.6 % . [facility] Neutrophils Auto (Bld) [#/Vo l]Ordered By: Jose M Landry on 04-07-2023 Neutrophils (Bld) [#/Vol] 5.1 10*3/uL 1.8-7.7 [facility] [facility] Neutrophils/100 WBC Auto (Bl d)Ordered By: Jose M Landry on 04-07-2023 Neutrophils/100 WBC (Bld) 53.5 % . [facility] No Panel InformationOrdered By: Jose M Landry on 04-07-2023 Estimated GFR (CKD-EPI) 8.317 mL/Min [facility] Creatinine Clearance (Chem 13.17 [facility] 8.317 mL/Min [facility] 13.17 [facility] Nucleated erythrocytes [Pres ence] in Blood by Automated countOrdered By: Jose M Landry on 04-07-2023 Nucleated RBC Auto Ql (Bld) 0.8 /100{WBC} 0-0.5 [facility] Parathyrin.intact [Mass/volu me] in Serum or PlasmaOrdered By: Johan Taylor on 04-07-2023 Parathyrin.intact [Mass/Vol] 436.4 pg/mL 12-88 [facility] Phosphate [Mass/volume] in S leti or PlasmaOrdered By: Johan Taylor on 04-07-2023 Phosphate [Mass/Vol] 6.4 mg/dL 2.5-4.5 [facility] Platelet mean volume Auto (B ld) [Entitic vol]Ordered By: Jose M Landry on 04-07-2023 Platelet mean volume (Bld) [Entitic vol] 10.4 fL 6.6-10.1 [facility] Platelets Auto (Bld) [#/Vol] Ordered By: Jose M Landry on 04-07-2023 Platelets (Bld) [#/Vol] 280 10*3/uL 150-450 [facility] Potassium [Moles/volume] in Serum or PlasmaOrdered By: Jose M Landry on 04-07-2023 Potassium [Moles/Vol] 5.7 mmol/L 3.5-5.[address] [facility] Protein [Mass/volume] in Ser um or PlasmaOrdered By: Jose M Landry on 04-07-2023 Protein [Mass/Vol] 8.1 g/dL 6.4-8.9 [facility] RBC Auto (Bld) [#/Vol]Ordere d By: Jose M Landry on 04-07-2023 RBC (Bld) [#/Vol] 2.94 10*6/uL 3.90-5.60 [facility] Serum or plasma albumin/glob ulin mass ratioOrdered By: Jose M Landry on 04-07-2023 Albumin/Globulin [Mass ratio] 0.8 {ratio} [facility] Serum or plasma anion gap de terminationOrdered By: Jose M Landry on 04-07-2023 Anion gap [Moles/Vol] 17.6 mmol/L 6.0-15.0 [facility] Sodium [Moles/volume] in Ser um or PlasmaOrdered By: Jose M Landry on 04-07-2023 Sodium [Moles/Vol] 141 mmol/L 136-145 [facility] Urea nitrogen [Mass/volume] in Serum or PlasmaOrdered By: Jose M Landry on 04-07-2023 Urea nitrogen [Mass/Vol] 56 mg/dL 7-25 [facility] WBC Auto (Bld) [#/Vol]Ordere d By: Jose M Landry on 04-07-2023 WBC (Bld) [#/Vol] 9.5 10*3/uL 4.1-10.5 [facility] Alanine aminotransferase [En zymatic activity/volume] in Serum or PlasmaOrdered By: Fawad Rocha on 04-02-2023 ALT [Catalytic activity/Vol] 12 U/L 7-52 [facility] Albumin [Mass/volume] in Ser um or Plasma by Bromocresol green (BCG) dye binding methoOrdered By: Fawad Rocha on 04-02-2023 Albumin BCG dye [Mass/Vol] 3.5 g/dL 3.5-5.7 [facility] Alkaline phosphatase [Enzyma tic activity/volume] in Serum or PlasmaOrdered By: Fawad Rocha on 04-02-2023 ALP [Catalytic activity/Vol] 138 U/L 34-104 [facility] Anisocytosis LM Ql (Bld)Orde red By: Fawad Rocha on 04-02-2023 Anisocytosis Ql (Bld) Moderate [facility] Aspartate aminotransferase [ Enzymatic activity/volume] in Serum or PlasmaOrdered By: Fawad Rocha on 04-02-2023 AST [Catalytic activity/Vol] 19 U/L 13-39 [facility] Basophils Auto (Bld) [#/Vol] Ordered By: Fawad Rocha on 04-02-2023 Basophils (Bld) [#/Vol] N/A [facility] Basophils/100 WBC Auto (Bld) Ordered By: Fawad Rocha on 04-02-2023 Basophils/100 WBC (Bld) N/A [facility] Bilirubin.total [Mass/volume ] in Serum or PlasmaOrdered By: Fawad Rocha on 04-02-2023 Bilirubin [Mass/Vol] 0.2 mg/dL 0.3-1.0 [facility] Calcium [Mass/volume] in Ser um or PlasmaOrdered By: Fawad Rocha on 04-02-2023 Calcium [Mass/Vol] 7.4 mg/dL 8.6-10.3 [facility] Carbon dioxide, total [Moles /volume] in Serum or PlasmaOrdered By: Fawad Rocha on 04-02-2023 CO2 [Moles/Vol] 23.4 mmol/L 21.0-31.0 [facility] Chloride [Moles/volume] in S leti or PlasmaOrdered By: Fawad Rocha on 04-02-2023 Chloride [Moles/Vol] 108 mmol/L 98-107 [facility] Creatinine [Mass/volume] in Serum or PlasmaOrdered By: Fawad Rocha on 04-02-2023 Creatinine [Mass/Vol] 5.55 mg/dL 0.70-1.[address] [facility] Eosinophils Auto (Bld) [#/Vo l]Ordered By: Fawad Rocha on 04-02-2023 Eosinophils (Bld) [#/Vol] N/A [facility] Eosinophils/100 WBC Auto (Bl d)Ordered By: Fawad Rocha on 04-02-2023 Eosinophils/100 WBC (Bld) N/A [facility] Eosinophils/100 WBC Manual c nt (Bld)Ordered By: Fawad Rocha on 04-02-2023 Eosinophils/100 WBC (Bld) 6 % 1-3 [facility] Erythrocyte distribution wid th Auto (RBC) [Ratio]Ordered By: Fawad Rocha on 04-02-2023 Erythrocyte distribution width (RBC) [Ratio] 15.9 % 12.0-14.8 [facility] Giant platelets/100 leukocyt es [Ratio] in Blood by Manual countOrdered By: Fawad Rocha on 04-02-2023 Giant platelets/100 WBC Manual cnt (Bld) [Ratio] 1 /100{WBC} [facility] Globulin Calc (S) [Mass/Vol] Ordered By: Fawad Rocha on 04-02-2023 Globulin (S) [Mass/Vol] 4.5 g/dL [facility] Glucose [Mass/volume] in Ser um or PlasmaOrdered By: Fawad Rocha on 04-02-2023 Glucose [Mass/Vol] 95 mg/dL 70-100 [facility] Comment on above: ADA recommended refe rence rangeRandom Glucose Reference Range is dependent on time and content of last meal. Glucose of more than 200 mg/dL in a nonstressed, ambulatory subject supports the diagnosis of Diabetes Mellitus. Hematocrit Auto (Bld) [Volum e fraction]Ordered By: Fawad Rocha on 04-02-2023 Hematocrit (Bld) [Volume fraction] 23.3 % 38.8-50.0 [facility] Hemoglobin [Mass/volume] in BloodOrdered By: Fawad Rocha on 04-02-2023 Hemoglobin (Bld) [Mass/Vol] 7.5 g/dL 13.0-17.0 [facility] Hypochromia LM Ql (Bld)Order ed By: Fawad Rocha on 04-02-2023 Hypochromia Ql (Bld) Slight [facility] Leukocytes [#/volume] correc lakesha for nucleated erythrocytes in Blood by Automated counOrdered By: Fawad Rocha on 04-02-2023 WBC corrected for nucl RBC Auto (Bld) [#/Vol] 13.7 10*3/uL 4.1-10.5 [facility] Lymphocytes Auto (Bld) [#/Vo l]Ordered By: Fawad Rocha on 04-02-2023 Lymphocytes (Bld) [#/Vol] N/A [facility] Lymphocytes/100 WBC Auto (Bl d)Ordered By: Fawad Rocha on 04-02-2023 Lymphocytes/100 WBC (Bld) N/A [facility] Lymphocytes/100 WBC Manual c nt (Bld)Ordered By: Fawad Rocha on 04-02-2023 Lymphocytes/100 WBC (Bld) 31 % 18-42 [facility] MCH Auto (RBC) [Entitic mass ]Ordered By: Fawad Rocha on 04-02-2023 MCH (RBC) [Entitic mass] 31.0 pg 27.5-35.2 [facility] MCHC Auto (RBC) [Mass/Vol]Or dered By: Fawad Rocha on 04-02-2023 MCHC (RBC) [Mass/Vol] 32.3 g/dL 32.5-35.[address] [facility] MCV Auto (RBC) [Entitic vol] Ordered By: Fawad Rocha on 04-02-2023 MCV (RBC) [Entitic vol] 95.9 fL 83.5-101 [facility] Monocytes Auto (Bld) [#/Vol] Ordered By: Fawad Rocha on 04-02-2023 Monocytes (Bld) [#/Vol] N/A [facility] Monocytes/100 WBC Auto (Bld) Ordered By: Fawad Rocha on 04-02-2023 Monocytes/100 WBC (Bld) N/A [facility] Monocytes/100 WBC Manual cnt (Bld)Ordered By: Fawad Rocha on 04-02-2023 Monocytes/100 WBC (Bld) 15 % 2-11 [facility] Neutrophils Auto (Bld) [#/Vo l]Ordered By: Fawad Rocha on 04-02-2023 Neutrophils (Bld) [#/Vol] N/A [facility] Neutrophils/100 WBC Auto (Bl d)Ordered By: Fawad Rocha on 04-02-2023 Neutrophils/100 WBC (Bld) N/A [facility] No Panel InformationOrdered By: Fawad Rocha on 04-02-2023 Estimated GFR (CKD-EPI) 10.163 mL/Min [facility] Creatinine Clearance (Chem N/A [facility] 10.163 mL/Min [facility] N/A [facility] Nucleated RBC/100 WBC Manual cnt (Bld) [Ratio]Ordered By: Fawad Rocha on 04-02-2023 Nucleated RBC/100 WBC (Bld) [Ratio] 1 /100{WBC} 0-0 [facility] Nucleated erythrocytes [Pres ence] in Blood by Automated countOrdered By: Fawad Rocha on 04-02-2023 Nucleated RBC Auto Ql (Bld) N/A [facility] Platelet adequacy [Presence] in Blood by Light microscopyOrdered By: Fawad Rocha on 04-02-2023 Platelets LM Ql (Bld) Normal Normal [facility] Platelet mean volume Auto (B ld) [Entitic vol]Ordered By: Fawad Rocha on 04-02-2023 Platelet mean volume (Bld) [Entitic vol] 10.1 fL 6.6-10.1 [facility] Platelet morphology finding [Identifier] in BloodOrdered By: Fawad Rocha on 04-02-2023 Platelet morphology finding Nom (Bld) N/A [facility] Platelets Auto (Bld) [#/Vol] Ordered By: Fawad Rocha on 04-02-2023 Platelets (Bld) [#/Vol] 257 10*3/uL 150-450 [facility] Platelets Large [Presence] i n Blood by Light microscopyOrdered By: Fawad Rocha on 04-02-2023 Platelets Large LM Ql (Bld) [facility] Polychromasia [Presence] in Blood by Light microscopyOrdered By: Fawad Rocha on 04-02-2023 Polychromasia LM Ql (Bld) [facility] Potassium [Moles/volume] in Serum or PlasmaOrdered By: Fawad Rocha on 04-02-2023 Potassium [Moles/Vol] 4.8 mmol/L 3.5-5.[address] [facility] Protein [Mass/volume] in Ser um or PlasmaOrdered By: Fawad Rocha on 04-02-2023 Protein [Mass/Vol] 8.0 g/dL 6.4-8.9 [facility] RBC Auto (Bld) [#/Vol]Ordere d By: Fawad Rocha on 04-02-2023 RBC (Bld) [#/Vol] 2.43 10*6/uL 3.90-5.60 [facility] RBC morphologyOrdered By: Nils Rocha on 04-02-2023 RBC morphology finding Nom (Bld) N/A [facility] Segmented neutrophils/100 WB C Manual cnt (Bld)Ordered By: Fawad Rocha on 04-02-2023 Segmented neutrophils/100 WBC (Bld) 49 % 50-70 [facility] Serum or plasma albumin/glob ulin mass ratioOrdered By: Fawad Rocha on 04-02-2023 Albumin/Globulin [Mass ratio] 0.8 {ratio} [facility] Serum or plasma anion gap de terminationOrdered By: Fawad Rocha on 04-02-2023 Anion gap [Moles/Vol] 13.4 mmol/L 6.0-15.0 [facility] Sodium [Moles/volume] in Ser um or PlasmaOrdered By: Fawad Rocha on 04-02-2023 Sodium [Moles/Vol] 140 mmol/L 136-145 [facility] Target cellsOrdered By: Jesús Rocha on 04-02-2023 Target cells LM Ql (Bld) Moderate [facility] Urea nitrogen [Mass/volume] in Serum or PlasmaOrdered By: Fawad Rocha on 04-02-2023 Urea nitrogen [Mass/Vol] 47 mg/dL 7-25 [facility] WBC Auto (Bld) [#/Vol]Ordere d By: Fawad Rocha on 04-02-2023 WBC (Bld) [#/Vol] 13.7 10*3/uL 4.1-10.5 [facility] Alanine aminotransferase [En zymatic activity/volume] in Serum or PlasmaOrdered By: Jose M Landry on 03-19-2023 ALT [Catalytic activity/Vol] 9 U/L 7-52 [facility] Albumin [Mass/volume] in Ser um or Plasma by Bromocresol green (BCG) dye binding methoOrdered By: Jose M Landry on 03-19-2023 Albumin BCG dye [Mass/Vol] 3.2 g/dL 3.5-5.7 [facility] Alkaline phosphatase [Enzyma tic activity/volume] in Serum or PlasmaOrdered By: Jose M Landry on 03-19-2023 ALP [Catalytic activity/Vol] 117 U/L 34-104 [facility] Aspartate aminotransferase [ Enzymatic activity/volume] in Serum or PlasmaOrdered By: Jose M Landry on 03-19-2023 AST [Catalytic activity/Vol] 16 U/L 13-39 [facility] Basophils Auto (Bld) [#/Vol] Ordered By: Jose M Landry on 03-19-2023 Basophils (Bld) [#/Vol] 0.1 10*3/uL 0.0-0.2 [facility] Basophils/100 WBC Auto (Bld) Ordered By: Jose M Landry on 03-19-2023 Basophils/100 WBC (Bld) 0.9 % . [facility] Bilirubin.total [Mass/volume ] in Serum or PlasmaOrdered By: Jose M Landry on 03-19-2023 Bilirubin [Mass/Vol] 0.2 mg/dL 0.3-1.0 [facility] Calcium [Mass/volume] in Ser um or PlasmaOrdered By: Jose M Landry 03-19-2023 Calcium [Mass/Vol] 7.3 mg/dL 8.6-10.3 [facility] Carbon dioxide, total [Moles /volume] in Serum or PlasmaOrdered By: Jose M Landry 03-19-2023 CO2 [Moles/Vol] 25.3 mmol/L 21.0-31.0 [facility] Chloride [Moles/volume] in S leti or PlasmaOrdered By: Jos eM Landry on 03-19-2023 Chloride [Moles/Vol] 108 mmol/L 98-107 [facility] Creatinine [Mass/volume] in Serum or PlasmaOrdered By: Jose M Landry on 03-19-2023 Creatinine [Mass/Vol] 5.00 mg/dL 0.70-1.[address] [facility] Eosinophils Auto (Bld) [#/Vo l]Ordered By: Jose M Landry on 03-19-2023 Eosinophils (Bld) [#/Vol] 0.5 10*3/uL 0.0-0.45 [facility] Eosinophils/100 WBC Auto (Bl d)Ordered By: Jose M Landry on 03-19-2023 Eosinophils/100 WBC (Bld) 4.9 % . [facility] Erythrocyte distribution wid th Auto (RBC) [Ratio]Ordered By: Jose M Landry on 03-19-2023 Erythrocyte distribution width (RBC) [Ratio] 16.1 % 12.0-14.8 [facility] Globulin Calc (S) [Mass/Vol] Ordered By: Jose M Landry 03-19-2023 Globulin (S) [Mass/Vol] 4.0 g/dL [facility] Glucose [Mass/volume] in Ser um or PlasmaOrdered By: Jose M Landry on 03-19-2023 Glucose [Mass/Vol] 118 mg/dL 70-100 [facility] Comment on above: ADA recommended refe rence rangeRandom Glucose Reference Range is dependent on time and content of last meal. Glucose of more than 200 mg/dL in a nonstressed, ambulatory subject supports the diagnosis of Diabetes Mellitus. Hematocrit Auto (Bld) [Volum e fraction]Ordered By: Jose M Landry on 03-19-2023 Hematocrit (Bld) [Volume fraction] 23.9 % 38.8-50.0 [facility] Hemoglobin [Mass/volume] in BloodOrdered By: Jose M Landry 03-19-2023 Hemoglobin (Bld) [Mass/Vol] 7.8 g/dL 13.0-17.0 [facility] Leukocytes [#/volume] correc lakesha for nucleated erythrocytes in Blood by Automated counOrdered By: Jose M Landry on 03-19-2023 WBC corrected for nucl RBC Auto (Bld) [#/Vol] 9.9 10*3/uL 4.1-10.5 [facility] Lymphocytes Auto (Bld) [#/Vo l]Ordered By: Jose M Landry on 03-19-2023 Lymphocytes (Bld) [#/Vol] 3.9 10*3/uL 1.00-4.8 [facility] Lymphocytes/100 WBC Auto (Bl d)Ordered By: Jose M Landry on 03-19-2023 Lymphocytes/100 WBC (Bld) 40.0 % . [facility] MCH Auto (RBC) [Entitic mass ]Ordered By: Jose M Landry on 03-19-2023 MCH (RBC) [Entitic mass] 30.5 pg 27.5-35.2 [facility] MCHC Auto (RBC) [Mass/Vol]Or dered By: Jose M Landry on 03-19-2023 MCHC (RBC) [Mass/Vol] 32.8 g/dL 32.5-35.6 [facility] MCV Auto (RBC) [Entitic vol] Ordered By: Jose M Landry on 03-19-2023 MCV (RBC) [Entitic vol] 93.0 fL 83.5-101 [facility] Monocytes Auto (Bld) [#/Vol] Ordered By: Jose M Landry on 03-19-2023 Monocytes (Bld) [#/Vol] 0.8 10*3/uL 0.0-0.8 [facility] Monocytes/100 WBC Auto (Bld) Ordered By: Jose M Landry on 03-19-2023 Monocytes/100 WBC (Bld) 8.5 % . [facility] Neutrophils Auto (Bld) [#/Vo l]Ordered By: Jose M Landry on 03-19-2023 Neutrophils (Bld) [#/Vol] 4.5 10*3/uL 1.8-7.7 [facility] Neutrophils/100 WBC Auto (Bl d)Ordered By: Jose M Landry on 03-19-2023 Neutrophils/100 WBC (Bld) 45.7 % . [facility] No Panel InformationOrdered By: Jose M Landry on 03-19-2023 Estimated GFR (CKD-EPI) 11.592 mL/Min [facility] Creatinine Clearance (Chem N/A [facility] 11.592 mL/Min [facility] N/A [facility] Nucleated erythrocytes [Pres ence] in Blood by Automated countOrdered By: Jose M Landry on 03-19-2023 Nucleated RBC Auto Ql (Bld) 0.1 /100{WBC} 0-0.5 [facility] Platelet mean volume Auto (B ld) [Entitic vol]Ordered By: Jose M Landry on 03-19-2023 Platelet mean volume (Bld) [Entitic vol] 10.8 fL 6.6-10.1 [facility] Platelets Auto (Bld) [#/Vol] Ordered By: Jose M Landry on 03-19-2023 Platelets (Bld) [#/Vol] 207 10*3/uL 150-450 [facility] Potassium [Moles/volume] in Serum or PlasmaOrdered By: Jose M Landry on 03-19-2023 Potassium [Moles/Vol] 4.5 mmol/L 3.5-5.[address] [facility] Protein [Mass/volume] in Ser um or PlasmaOrdered By: Jose M Landry on 03-19-2023 Protein [Mass/Vol] 7.2 g/dL 6.4-8.9 [facility] RBC Auto (Bld) [#/Vol]Ordere d By: Jose M Landry on 03-19-2023 RBC (Bld) [#/Vol] 2.57 10*6/uL 3.90-5.60 [facility] Serum or plasma albumin/glob ulin mass ratioOrdered By: Jose M Landry on 03-19-2023 Albumin/Globulin [Mass ratio] 0.8 {ratio} [facility] Serum or plasma anion gap de terminationOrdered By: Jose M Landry on 03-19-2023 Anion gap [Moles/Vol] 13.2 mmol/L 6.0-15.0 [facility] Sodium [Moles/volume] in Ser um or PlasmaOrdered By: Jose M Landry on 03-19-2023 Sodium [Moles/Vol] 142 mmol/L 136-145 [facility] Urea nitrogen [Mass/volume] in Serum or PlasmaOrdered By: Jose M Landry on 03-19-2023 Urea nitrogen [Mass/Vol] 48 mg/dL 7-25 [facility] WBC Auto (Bld) [#/Vol]Ordere d By: Jose M Landry on 03-19-2023 WBC (Bld) [#/Vol] 9.9 10*3/uL 4.1-10.5 [facility] Cholesterol [Mass/volume] in Serum or PlasmaOrdered By: Mervat aSntiago on 03-13-2023 Cholesterol [Mass/Vol] 123 mg/dL 140-200 [facility] Comment on above: Chol less than 200 m g/dl low riskChol 201-239 mg/dl borderline riskChol 240 mg/dl and greater high risk Cholesterol in LDL Calc [Mas s/Vol]Ordered By: Mervat Santiago on 03-13-2023 Cholesterol in LDL [Mass/Vol] 43 mg/dL 0-100 [facility] Comment on above: LDL ATP III CLASSIFI CATIONLDL less than 100 mg/dL OptimalLDL 100-129 mg/dL Near or above optimalLDL 130-159 mg/dL Borderline highLDL 160-189 mg/dL HighLDL greater than 189 mg/dL Very high Cholesterol in VLDL Calc [Ma ss/Vol]Ordered By: Mervat Santiago on 03-13-2023 Cholesterol in VLDL [Mass/Vol] 13 mg/dL [facility] Serum or plasma high density lipoprotein (HDL) cholesterol measurementOrdered By: Mervat Santiago on 03-13-2023 Cholesterol in HDL [Mass/Vol] 66 mg/dL 23-92 [facility] Comment on above: HDL CHOL ATP-III CLA SSIFICATION Cardiovascular RiskHDL > or equal to 60 mg/dL LOWHDL < 40 mg/dL HIGH Serum or plasma total choles terol/high density lipoprotein (HDL) cholesterol mass ratOrdered By: Mervat Santiago on 03-13-2023 Cholesterol.total/Aleja sterol in HDL [Mass ratio] 1.9 {ratio} <5.0 [facility] Thyrotropin [Units/volume] i n Serum or PlasmaOrdered By: Mervat Santiago on 03-13-2023 TSH Qn 5.24 m[IU]/L 0.45-5.33 [facility] Triglyceride [Mass/volume] i n Serum or PlasmaOrdered By: Mervat Santiago on 03-13-2023 Triglyceride [Mass/Vol] 69 mg/dL 0-149 [facility] Comment on above: TRIG ATP III CLASSIF ICATIONTRIG less than 150 mg/dL NormalTRIG 150-199 mg/dL Borderline highTRIG 200-500 mg/dL High TRIG greater than 500 mg/dL Very highStandard traceable to the Center for Disease Conrtrol and Prevention (CDC) test method. Vitamin D+Metabolites [Mass/ volume] in Serum or PlasmaOrdered By: Mervat Santiago on 03-13-2023 Vitamin D+Metabolites [Mass/Vol] See comment 30-100 [facility] Comment on above: Specimen hemolyzed, redraw requestedVITAMIN D STATUS 25(OH)VITAMIN D RANGE (ng/mL) Deficient <20 Insufficient 20 to <30Sufficient 30 to 100Reference: Waylon NGUYEN,Xavier SUMNER, [place] RIOS, et al. Evaluation,treatment, and prevention of vitamin D deficiency; an Endocrine Society clinical practice guideline. JCEM. 2010; 96(7):1911-30. Alanine aminotransferase [En zymatic activity/volume] in Serum or PlasmaOrdered By: Jose M Landry on 03-04-2023 ALT [Catalytic activity/Vol] 10 U/L 7-52 [facility] Albumin [Mass/volume] in Ser um or Plasma by Bromocresol green (BCG) dye binding methoOrdered By: Jose M Landry on 03-04-2023 Albumin BCG dye [Mass/Vol] 3.4 g/dL 3.5-5.7 [facility] Alkaline phosphatase [Enzyma tic activity/volume] in Serum or PlasmaOrdered By: Jose M Landry on 03-04-2023 ALP [Catalytic activity/Vol] 157 U/L 34-104 [facility] Aspartate aminotransferase [ Enzymatic activity/volume] in Serum or PlasmaOrdered By: Jose M Landry on 03-04-2023 AST [Catalytic activity/Vol] 16 U/L 13-39 [facility] Basophils Auto (Bld) [#/Vol] Ordered By: Jose M Landry on 03-04-2023 Basophils (Bld) [#/Vol] 0.1 10*3/uL 0.0-0.2 [facility] Basophils/100 WBC Auto (Bld) Ordered By: Jose M Landry on 03-04-2023 Basophils/100 WBC (Bld) 1.1 % . [facility] Bilirubin.total [Mass/volume ] in Serum or PlasmaOrdered By: Jose M Landry on 03-04-2023 Bilirubin [Mass/Vol] 0.3 mg/dL 0.3-1.0 [facility] Calcium [Mass/volume] in Ser um or PlasmaOrdered By: Jose M Landry on 03-04-2023 Calcium [Mass/Vol] 7.6 mg/dL 8.6-10.3 [facility] Carbon dioxide, total [Moles /volume] in Serum or PlasmaOrdered By: Jose M Landry on 03-04-2023 CO2 [Moles/Vol] 23.4 mmol/L 21.0-31.0 [facility] Chloride [Moles/volume] in S leti or PlasmaOrdered By: Jose M Landry on 03-04-2023 Chloride [Moles/Vol] 107 mmol/L 98-107 [facility] Creatinine [Mass/volume] in Serum or PlasmaOrdered By: Jose M Landry on 03-04-2023 Creatinine [Mass/Vol] 4.93 mg/dL 0.70-1.[address] [facility] Eosinophils Auto (Bld) [#/Vo l]Ordered By: Jose M Landry on 03-04-2023 Eosinophils (Bld) [#/Vol] 0.7 10*3/uL 0.0-0.45 [facility] Eosinophils/100 WBC Auto (Bl d)Ordered By: Jose M Landry on 03-04-2023 Eosinophils/100 WBC (Bld) 5.3 % . [facility] Erythrocyte distribution wid th Auto (RBC) [Ratio]Ordered By: Jose M Landry on 03-04-2023 Erythrocyte distribution width (RBC) [Ratio] 16.2 % 12.0-14.8 [facility] Globulin Calc (S) [Mass/Vol] Ordered By: Jose M Landry on 03-04-2023 Globulin (S) [Mass/Vol] 4.2 g/dL [facility] Glucose [Mass/volume] in Ser um or PlasmaOrdered By: Jose M Landry on 03-04-2023 Glucose [Mass/Vol] 88 mg/dL 70-100 [facility] Comment on above: ADA recommended refe rence rangeRandom Glucose Reference Range is dependent on time and content of last meal. Glucose of more than 200 mg/dL in a nonstressed, ambulatory subject supports the diagnosis of Diabetes Mellitus. Hematocrit Auto (Bld) [Volum e fraction]Ordered By: Jose M Landry on 03-04-2023 Hematocrit (Bld) [Volume fraction] 26.6 % 38.8-50.0 [facility] Hemoglobin [Mass/volume] in BloodOrdered By: Jose M Landry on 03-04-2023 Hemoglobin (Bld) [Mass/Vol] 8.6 g/dL 13.0-17.0 [facility] Leukocytes [#/volume] correc lakesha for nucleated erythrocytes in Blood by Automated counOrdered By: Jose M Landry on 03-04-2023 WBC corrected for nucl RBC Auto (Bld) [#/Vol] 13.1 10*3/uL 4.1-10.5 [facility] Lymphocytes Auto (Bld) [#/Vo l]Ordered By: Jose M Landry on 03-04-2023 Lymphocytes (Bld) [#/Vol] 4.9 10*3/uL 1.00-4.8 [facility] Lymphocytes/100 WBC Auto (Bl d)Ordered By: Jose M Landry on 03-04-2023 Lymphocytes/100 WBC (Bld) 37.1 % . [facility] MCH Auto (RBC) [Entitic mass ]Ordered By: Jose M Landry on 03-04-2023 MCH (RBC) [Entitic mass] 30.0 pg 27.5-35.2 [facility] MCHC Auto (RBC) [Mass/Vol]Or dered By: Jose M Landry on 03-04-2023 MCHC (RBC) [Mass/Vol] 32.4 g/dL 32.5-35.[address] [facility] MCV Auto (RBC) [Entitic vol] Ordered By: Jose M Landry on 03-04-2023 MCV (RBC) [Entitic vol] 92.7 fL 83.5-101 [facility] Monocytes Auto (Bld) [#/Vol] Ordered By: Jose M Landry on 03-04-2023 Monocytes (Bld) [#/Vol] 1.3 10*3/uL 0.0-0.8 [facility] Monocytes/100 WBC Auto (Bld) Ordered By: Jose M Landry on 03-04-2023 Monocytes/100 WBC (Bld) 9.9 % . [facility] Neutrophils Auto (Bld) [#/Vo l]Ordered By: Jose M Landry on 03-04-2023 Neutrophils (Bld) [#/Vol] 6.1 10*3/uL 1.8-7.7 [facility] Neutrophils/100 WBC Auto (Bl d)Ordered By: Jose M Landry on 03-04-2023 Neutrophils/100 WBC (Bld) 46.6 % . [facility] No Panel InformationOrdered By: Jose M Landry on 03-04-2023 Estimated GFR (CKD-EPI) 11.789 mL/Min [facility] Creatinine Clearance (Chem 17.79 [facility] Nucleated erythrocytes [Pres ence] in Blood by Automated countOrdered By: Jose M Landry on 03-04-2023 Nucleated RBC Auto Ql (Bld) 0.1 /100{WBC} 0-0.5 [facility] Platelet mean volume Auto (B ld) [Entitic vol]Ordered By: Jose M Landry on 03-04-2023 Platelet mean volume (Bld) [Entitic vol] 10.8 fL 6.6-10.1 [facility] Platelets Auto (Bld) [#/Vol] Ordered By: Jose M Landry on 03-04-2023 Platelets (Bld) [#/Vol] 197 10*3/uL 150-450 [facility] Potassium [Moles/volume] in Serum or PlasmaOrdered By: Jose M Landry on 03-04-2023 Potassium [Moles/Vol] 5.3 mmol/L 3.5-5.[address] [facility] Protein [Mass/volume] in Ser um or PlasmaOrdered By: Jose M Landry on 03-04-2023 Protein [Mass/Vol] 7.6 g/dL 6.4-8.9 [facility] RBC Auto (Bld) [#/Vol]Ordere d By: Jose M Landry on 03-04-2023 RBC (Bld) [#/Vol] 2.88 10*6/uL 3.90-5.60 [facility] Serum or plasma albumin/glob ulin mass ratioOrdered By: Jose M Landry on 03-04-2023 Albumin/Globulin [Mass ratio] 0.8 {ratio} [facility] Serum or plasma anion gap de terminationOrdered By: Jose M Landry on 03-04-2023 Anion gap [Moles/Vol] 14.9 mmol/L 6.0-15.0 [facility] Sodium [Moles/volume] in Ser um or PlasmaOrdered By: Jose M Landry on 03-04-2023 Sodium [Moles/Vol] 140 mmol/L 136-145 [facility] Urea nitrogen [Mass/volume] in Serum or PlasmaOrdered By: Jose M Landry on 03-04-2023 Urea nitrogen [Mass/Vol] 58 mg/dL 7-25 [facility] WBC Auto (Bld) [#/Vol]Ordere d By: Jose M Landry on 03-04-2023 WBC (Bld) [#/Vol] 13.1 10*3/uL 4.1-10.5 [facility] Alanine aminotransferase [En zymatic activity/volume] in Serum or PlasmaOrdered By: Johan Taylor on 02-07-2023 ALT [Catalytic activity/Vol] 14 U/L 7 [facility] Albumin [Mass/volume] in Ser um or Plasma by Bromocresol green (BCG) dye binding methoOrdered By: Johan Taylor 02-07-2023 Albumin BCG dye [Mass/Vol] 3.5 g/dL 3.5-5.7 [facility] Alkaline phosphatase [Enzyma tic activity/volume] in Serum or PlasmaOrdered By: Johan Taylor 02-07-2023 ALP [Catalytic activity/Vol] 192 U/L 34-104 [facility] Aspartate aminotransferase [ Enzymatic activity/volume] in Serum or PlasmaOrdered By: Johan Taylor 02-07-2023 AST [Catalytic activity/Vol] 25 U/L 13-39 [facility] Bilirubin.total [Mass/volume ] in Serum or PlasmaOrdered By: Johan Taylor 02-07-2023 Bilirubin [Mass/Vol] 0.3 mg/dL 0.3-1.0 [facility] Calcium [Mass/volume] in Ser um or PlasmaOrdered By: Johan Taylor 02-07-2023 Calcium [Mass/Vol] 8.0 mg/dL 8.6-10.3 [facility] Carbon dioxide, total [Moles /volume] in Serum or PlasmaOrdered By: Johan Taylor 02-07-2023 CO2 [Moles/Vol] 24.7 mmol/L 21.0-31.0 [facility] Chloride [Moles/volume] in S leti or PlasmaOrdered By: Johan Taylor 02-07-2023 Chloride [Moles/Vol] 107 mmol/L 98-107 [facility] Creatinine [Mass/volume] in Serum or PlasmaOrdered By: Johan Taylor 02-07-2023 Creatinine [Mass/Vol] 4.80 mg/dL 0.70-1.[address] [facility] Creatinine [Mass/volume] in UrineOrdered By: Johan Taylor 02-07-2023 Creatinine (U) [Mass/Vol] 42.0 mg/dL 14.0-26.0 [facility] Erythrocyte distribution wid th Auto (RBC) [Ratio]Ordered By: Johan Taylor 02-07-2023 Erythrocyte distribution width (RBC) [Ratio] 16.6 % 12.0-14.8 [facility] Globulin Calc (S) [Mass/Vol] Ordered By: Johan Taylor on 02-07-2023 Globulin (S) [Mass/Vol] 4.2 g/dL [facility] Glucose [Mass/volume] in Ser um or PlasmaOrdered By: Johan Taylor on 02-07-2023 Glucose [Mass/Vol] 100 mg/dL 70-100 [facility] Comment on above: ADA recommended refe rence rangeRandom Glucose Reference Range is dependent on time and content of last meal. Glucose of more than 200 mg/dL in a nonstressed, ambulatory subject supports the diagnosis of Diabetes Mellitus. Hematocrit Auto (Bld) [Volum e fraction]Ordered By: Johan Taylor on 02-07-2023 Hematocrit (Bld) [Volume fraction] 30.9 % 38.8-50.0 [facility] Hemoglobin [Mass/volume] in BloodOrdered By: Johan Taylor on 02-07-2023 Hemoglobin (Bld) [Mass/Vol] 9.8 g/dL 13.0-17.0 [facility] Leukocytes [#/volume] correc lakesha for nucleated erythrocytes in Blood by Automated counOrdered By: Johan Taylor on 02-07-2023 WBC corrected for nucl RBC Auto (Bld) [#/Vol] 12.6 10*3/uL 4.1-10.5 [facility] MCH Auto (RBC) [Entitic mass ]Ordered By: Johan Taylor on 02-07-2023 MCH (RBC) [Entitic mass] 29.7 pg 27.5-35.2 [facility] MCHC Auto (RBC) [Mass/Vol]Or dered By: Johan Taylor on 02-07-2023 MCHC (RBC) [Mass/Vol] 31.7 g/dL 32.5-35.[address] [facility] MCV Auto (RBC) [Entitic vol] Ordered By: Johan Taylor on 02-07-2023 MCV (RBC) [Entitic vol] 93.9 fL 83.5-101 [facility] No Panel InformationOrdered By: Johan Taylor on 02-07-2023 Estimated GFR (CKD-EPI) 12.173 mL/Min [facility] Creatinine Clearance (Chem N/A [facility] 12.173 mL/Min [facility] N/A [facility] Parathyrin.intact [Mass/volu me] in Serum or PlasmaOrdered By: Johan Taylor on 02-07-2023 Parathyrin.intact [Mass/Vol] 351.9 pg/mL 12-88 [facility] Phosphate [Mass/volume] in S leti or PlasmaOrdered By: Johan Taylor on 02-07-2023 Phosphate [Mass/Vol] 6.7 mg/dL 3.7-7.2 [facility] Platelet mean volume Auto (B ld) [Entitic vol]Ordered By: Johan Taylor on 02-07-2023 Platelet mean volume (Bld) [Entitic vol] 11.0 fL 6.6-10.1 [facility] Platelets Auto (Bld) [#/Vol] Ordered By: Johan Taylor 02-07-2023 Platelets (Bld) [#/Vol] 201 10*3/uL 150-450 [facility] Potassium [Moles/volume] in Serum or PlasmaOrdered By: Johan Taylor 02-07-2023 Potassium [Moles/Vol] 5.1 mmol/L 3.5-5.[address] [facility] Protein [Mass/volume] in Ser um or PlasmaOrdered By: Johan Taylor 02-07-2023 Protein [Mass/Vol] 7.7 g/dL 6.4-8.9 [facility] Protein [Mass/volume] in Uri neOrdered By: Johan Taylor 02-07-2023 Protein (U) [Mass/Vol] 447 mg/dL 0-9 [facility] RBC Auto (Bld) [#/Vol]Ordere d By: Johan Taylor on 02-07-2023 RBC (Bld) [#/Vol] 3.29 10*6/uL 3.90-5.60 [facility] Serum or plasma albumin/glob ulin mass ratioOrdered By: Johan Taylor 02-07-2023 Albumin/Globulin [Mass ratio] 0.8 {ratio} [facility] Serum or plasma anion gap de terminationOrdered By: Johan Taylor on 02-07-2023 Anion gap [Moles/Vol] 13.4 mmol/L 6.0-15.0 [facility] Sodium [Moles/volume] in Ser um or PlasmaOrdered By: Johan Taylor on 02-07-2023 Sodium [Moles/Vol] 140 mmol/L 136-145 [facility] Urea nitrogen [Mass/volume] in Serum or PlasmaOrdered By: Johan Taylor on 02-07-2023 Urea nitrogen [Mass/Vol] 49 mg/dL 7-25 [facility] Urine protein/creatinine rat ioOrdered By: Johan Taylor on 02-07-2023 Protein/Creatinine (U) [Ratio] 93244 mg/g{Cre} 0-200 [facility] Anisocytosis LM Ql (Bld)Orde red By: Maddie Dixon on 01-29-2023 Anisocytosis Ql (Bld) Moderate Fir [facility] Basophils Auto (Bld) [#/Vol] Ordered By: Maddie Dixon on 01-29-2023 Basophils (Bld) [#/Vol] N/A [facility] Basophils/100 WBC Auto (Bld) Ordered By: Maddie Dxion on 01-29-2023 Basophils/100 WBC (Bld) N/A [facility] Eosinophils Auto (Bld) [#/Vo l]Ordered By: Maddie Dixon on 01-29-2023 Eosinophils (Bld) [#/Vol] N/A [facility] Eosinophils/100 WBC Auto (Bl d)Ordered By: Maddie Dixon on 01-29-2023 Eosinophils/100 WBC (Bld) N/A [facility] Eosinophils/100 WBC Manual c nt (Bld)Ordered By: Maddie Dixon on 01-29-2023 Eosinophils/100 WBC (Bld) 6 % 1-3 [facility] Erythrocyte distribution wid th Auto (RBC) [Ratio]Ordered By: Maddie Dixon on 01-29-2023 Erythrocyte distribution width (RBC) [Ratio] 16.6 % 12.0-14.8 [facility] Giant platelets/100 leukocyt es [Ratio] in Blood by Manual countOrdered By: Maddie Dixon on 01-29-2023 Giant platelets/100 WBC Manual cnt (Bld) [Ratio] 4 /100{WBC} [facility] Hematocrit Auto (Bld) [Volum e fraction]Ordered By: Maddie Dixon on 01-29-2023 Hematocrit (Bld) [Volume fraction] 31.6 % 38.8-50.0 [facility] Hemoglobin [Mass/volume] in BloodOrdered By: Maddie Dixon on 01-29-2023 Hemoglobin (Bld) [Mass/Vol] 10.2 g/dL 13.0-17.0 [facility] Hypochromia LM Ql (Bld)Order ed By: Maddie Dixon on 01-29-2023 Hypochromia Ql (Bld) Slight [facility] Leukocytes [#/volume] correc lakesha for nucleated erythrocytes in Blood by Automated counOrdered By: Maddie Dixon on 01-29-2023 WBC corrected for nucl RBC Auto (Bld) [#/Vol] 11.0 10*3/uL 4.1-10.5 [facility] Lymphocytes Auto (Bld) [#/Vo l]Ordered By: Maddie Dxion on 01-29-2023 Lymphocytes (Bld) [#/Vol] N/A [facility] Lymphocytes/100 WBC Auto (Bl d)Ordered By: Maddie Dixon on 01-29-2023 Lymphocytes/100 WBC (Bld) N/A [facility] Lymphocytes/100 WBC Manual c nt (Bld)Ordered By: Maddie Dixon on 01-29-2023 Lymphocytes/100 WBC (Bld) 40 % 18-42 [facility] MCH Auto (RBC) [Entitic mass ]Ordered By: Maddie Dixon on 01-29-2023 MCH (RBC) [Entitic mass] 30.6 pg 27.5-35.2 [facility] MCHC Auto (RBC) [Mass/Vol]Or dered By: Maddie Dixon on 01-29-2023 MCHC (RBC) [Mass/Vol] 32.4 g/dL 32.5-35.[address] [facility] MCV Auto (RBC) [Entitic vol] Ordered By: Maddie Dixon on 01-29-2023 MCV (RBC) [Entitic vol] 94.5 fL 83.5-101 [facility] Monocytes Auto (Bld) [#/Vol] Ordered By: Maddie Dixon on 01-29-2023 Monocytes (Bld) [#/Vol] N/A [facility] Monocytes/100 WBC Auto (Bld) Ordered By: Maddie Dixon on 01-29-2023 Monocytes/100 WBC (Bld) N/A [facility] Monocytes/100 WBC Manual cnt (Bld)Ordered By: Maddie Dixon on 01-29-2023 Monocytes/100 WBC (Bld) 15 % 2-11 [facility] Neutrophils Auto (Bld) [#/Vo l]Ordered By: Maddie Dixon on 01-29-2023 Neutrophils (Bld) [#/Vol] N/A [facility] Neutrophils/100 WBC Auto (Bl d)Ordered By: Maddie Dixon on 01-29-2023 Neutrophils/100 WBC (Bld) N/A [facility] Nucleated erythrocytes [Pres ence] in Blood by Automated countOrdered By: Maddie Dixon on 01-29-2023 Nucleated RBC Auto Ql (Bld) N/A [facility] Platelet adequacy [Presence] in Blood by Light microscopyOrdered By: Maddie Dixon on 01-29-2023 Platelets LM Ql (Bld) Normal Normal Fir [facility] Platelet mean volume Auto (B ld) [Entitic vol]Ordered By: Maddie Dixon on 01-29-2023 Platelet mean volume (Bld) [Entitic vol] 11.0 fL 6.6-10.1 [facility] Platelet morphology finding [Identifier] in BloodOrdered By: Maddie Dixon on 01-29-2023 Platelet morphology finding Nom (Bld) Normal Normal [facility] Platelets Auto (Bld) [#/Vol] Ordered By: Maddie Dixon on 01-29-2023 Platelets (Bld) [#/Vol] 215 10*3/uL 150-450 [facility] Poikilocytosis [Presence] in Blood by Light microscopyOrdered By: Maddie Dixon on 01-29-2023 Poikilocytosis LM Ql (Bld) Slight [facility] Polychromasia [Presence] in Blood by Light microscopyOrdered By: Maddie Destiny on 01-29-2023 Polychromasia LM Ql (Bld) Slight [facility] RBC Auto (Bld) [#/Vol]Ordere d By: Maddie Destiny on 01-29-2023 RBC (Bld) [#/Vol] 3.34 10*6/uL 3.90-5.60 [facility] RBC morphologyOrdered By: Trinity Dixon on 01-29-2023 RBC morphology finding Nom (Bld) N/A [facility] Schistocytes [Presence] in B lood by Light microscopyOrdered By: Maddie Destiny on 01-29-2023 Schistocytes LM Ql (Bld) Slight [facility] Segmented neutrophils/100 WB C Manual cnt (Bld)Ordered By: Maddie Destiny on 01-29-2023 Segmented neutrophils/100 WBC (Bld) 38 % 50-70 [facility] Target cellsOrdered By: Maddie Dixon on 01-29-2023 Target cells LM Ql (Bld) Moderate [facility] Variant lymphocytes/100 WBC Manual cnt (Bld)Ordered By: Maddie Destiny on 01-29-2023 Variant lymphocytes/100 WBC (Bld) 1 % 0-12 [facility] WBC Auto (Bld) [#/Vol]Ordere d By: Maddie Destiny on 01-29-2023 WBC (Bld) [#/Vol] 11.0 10*3/uL 4.1-10.5 [facility] Alanine aminotransferase [En zymatic activity/volume] in Serum or PlasmaOrdered By: Jose M Landry on 01-15-2023 ALT [Catalytic activity/Vol] 14 U/L 7-52 [facility] Albumin [Mass/volume] in Ser um or Plasma by Bromocresol green (BCG) dye binding methoOrdered By: Jose M Landry on 01-15-2023 Albumin BCG dye [Mass/Vol] 3.6 g/dL 3.5-5.7 [facility] Alkaline phosphatase [Enzyma tic activity/volume] in Serum or PlasmaOrdered By: Jose M Landry on 01-15-2023 ALP [Catalytic activity/Vol] 192 U/L 34-104 [facility] Anisocytosis LM Ql (Bld)Orde red By: Jose M Landry on 01-15-2023 Anisocytosis Ql (Bld) Marked Fir [facility] Aspartate aminotransferase [ Enzymatic activity/volume] in Serum or PlasmaOrdered By: Jose M Landry on 01-15-2023 AST [Catalytic activity/Vol] 22 U/L 13-39 [facility] Band form neutrophils/100 WB C Manual cnt (Bld)Ordered By: Jose M Landry on 01-15-2023 Band form neutrophils/100 WBC (Bld) 1 % 0-5 [facility] Basophils Auto (Bld) [#/Vol] Ordered By: Jose M Landry on 01-15-2023 Basophils (Bld) [#/Vol] N/A [facility] Basophils/100 WBC Auto (Bld) Ordered By: Jose M Landry on 01-15-2023 Basophils/100 WBC (Bld) N/A [facility] Bilirubin.total [Mass/volume ] in Serum or PlasmaOrdered By: Jose M Landry on 01-15-2023 Bilirubin [Mass/Vol] 0.4 mg/dL 0.3-1.0 [facility] Calcium [Mass/volume] in Ser um or PlasmaOrdered By: Jose M Landry on 01-15-2023 Calcium [Mass/Vol] 8.1 mg/dL 8.6-10.3 [facility] Carbon dioxide, total [Moles /volume] in Serum or PlasmaOrdered By: Jose M Landry on 01-15-2023 CO2 [Moles/Vol] 24.6 mmol/L 21.0-31.0 [facility] Chloride [Moles/volume] in S leti or PlasmaOrdered By: Jose M Landry on 01-15-2023 Chloride [Moles/Vol] 105 mmol/L 98-107 [facility] Creatinine [Mass/volume] in Serum or PlasmaOrdered By: Jose M Landry on 10-11-2023 Creatinine [Mass/Vol] 3.96 mg/dL 0.70-1.[address] [facility] Eosinophils Auto (Bld) [#/Vo l]Ordered By: Jose M Landry on 01-15-2023 Eosinophils (Bld) [#/Vol] N/A [facility] Eosinophils/100 WBC Auto (Bl d)Ordered By: Jose M Landry on 01-15-2023 Eosinophils/100 WBC (Bld) N/A [facility] Eosinophils/100 WBC Manual c nt (Bld)Ordered By: Jose M Landry on 01-15-2023 Eosinophils/100 WBC (Bld) 6 % 1-3 [facility] Erythrocyte distribution wid th Auto (RBC) [Ratio]Ordered By: Jose M Landry on 01-15-2023 Erythrocyte distribution width (RBC) [Ratio] 17.4 % 12.0-14.8 [facility] Giant platelets/100 leukocyt es [Ratio] in Blood by Manual countOrdered By: Jose M Landry on 01-15-2023 Giant platelets/100 WBC Manual cnt (Bld) [Ratio] 5 /100{WBC} [facility] Globulin Calc (S) [Mass/Vol] Ordered By: Jose M Landry on 01-15-2023 Globulin (S) [Mass/Vol] 4.3 g/dL [facility] Glucose [Mass/volume] in Ser um or PlasmaOrdered By: Jose M Landry on 01-15-2023 Glucose [Mass/Vol] 222 mg/dL 70-100 [facility] Comment on above: ADA recommended refe rence rangeRandom Glucose Reference Range is dependent on time and content of last meal. Glucose of more than 200 mg/dL in a nonstressed, ambulatory subject supports the diagnosis of Diabetes Mellitus. Hematocrit Auto (Bld) [Volum e fraction]Ordered By: Jose M Landry on 01-15-2023 Hematocrit (Bld) [Volume fraction] 32.5 % 38.8-50.0 [facility] Hemoglobin [Mass/volume] in BloodOrdered By: Jose M Landry on 01-15-2023 Hemoglobin (Bld) [Mass/Vol] 10.4 g/dL 13.0-17.0 [facility] Hypochromia LM Ql (Bld)Order ed By: Jose M Landry on 01-15-2023 Hypochromia Ql (Bld) Moderate [facility] Leukocytes [#/volume] correc lakesha for nucleated erythrocytes in Blood by Automated counOrdered By: Jose M Landry on 01-15-2023 WBC corrected for nucl RBC Auto (Bld) [#/Vol] 12.5 10*3/uL 4.1-10.5 [facility] Lymphocytes Auto (Bld) [#/Vo l]Ordered By: Jose M Landry on 01-15-2023 Lymphocytes (Bld) [#/Vol] N/A [facility] Lymphocytes/100 WBC Auto (Bl d)Ordered By: Jose M Landry on 01-15-2023 Lymphocytes/100 WBC (Bld) N/A [facility] Lymphocytes/100 WBC Manual c nt (Bld)Ordered By: Jose M Landry on 01-15-2023 Lymphocytes/100 WBC (Bld) 27 % 18-42 [facility] MCH Auto (RBC) [Entitic mass ]Ordered By: Jose M Landry on 01-15-2023 MCH (RBC) [Entitic mass] 30.5 pg 27.5-35.2 [facility] MCHC Auto (RBC) [Mass/Vol]Or dered By: Jose M Landry on 01-15-2023 MCHC (RBC) [Mass/Vol] 31.9 g/dL 32.5-35.[address] [facility] MCV Auto (RBC) [Entitic vol] Ordered By: Jose M Landry on 01-15-2023 MCV (RBC) [Entitic vol] 95.6 fL 83.5-101 [facility] Macrocytes LM Ql (Bld)Ordere d By: Jose M Landry on 01-15-2023 Macrocytes Ql (Bld) Moderate [facility] Monocytes Auto (Bld) [#/Vol] Ordered By: Jose M Landry on 01-15-2023 Monocytes (Bld) [#/Vol] N/A [facility] Monocytes/100 WBC Auto (Bld) Ordered By: Jose M Landry on 01-15-2023 Monocytes/100 WBC (Bld) N/A [facility] Monocytes/100 WBC Manual cnt (Bld)Ordered By: Jose M Landry on 01-15-2023 Monocytes/100 WBC (Bld) 7 % 2-11 [facility] Neutrophils Auto (Bld) [#/Vo l]Ordered By: Jose M Landry on 01-15-2023 Neutrophils (Bld) [#/Vol] N/A [facility] Neutrophils/100 WBC Auto (Bl d)Ordered By: Jose M Landry on 01-15-2023 Neutrophils/100 WBC (Bld) N/A [facility] No Panel InformationOrdered By: Jose M Landry on 01-15-2023 Estimated GFR (CKD-EPI) 15.335 mL/Min [facility] Creatinine Clearance (Chem N/A [facility] 15.335 mL/Min [facility] N/A [facility] Nucleated RBC/100 WBC Manual cnt (Bld) [Ratio]Ordered By: Jose M Landry on 01-15-2023 Nucleated RBC/100 WBC (Bld) [Ratio] 1 /100{WBC} 0-0 [facility] Nucleated erythrocytes [Pres ence] in Blood by Automated countOrdered By: Jose M Landry on 01-15-2023 Nucleated RBC Auto Ql (Bld) N/A [facility] Platelet adequacy [Presence] in Blood by Light microscopyOrdered By: Jose M Landry on 01-15-2023 Platelets LM Ql (Bld) Normal Normal [facility] Platelet mean volume Auto (B ld) [Entitic vol]Ordered By: Jose M Landry on 01-15-2023 Platelet mean volume (Bld) [Entitic vol] 11.0 fL 6.6-10.1 [facility] Platelet morphology finding [Identifier] in BloodOrdered By: Jose M Landry on 01-15-2023 Platelet morphology finding Nom (Bld) N/A [facility] Platelets Auto (Bld) [#/Vol] Ordered By: Jose M Landry on 01-15-2023 Platelets (Bld) [#/Vol] 193 10*3/uL 150-450 [facility] Platelets Large [Presence] i n Blood by Light microscopyOrdered By: Jose M Landry on 01-15-2023 Platelets Large LM Ql (Bld) Slight [facility] Poikilocytosis [Presence] in Blood by Light microscopyOrdered By: Jose M Landry on 01-15-2023 Poikilocytosis LM Ql (Bld) Slight [facility] Polychromasia [Presence] in Blood by Light microscopyOrdered By: Jose M Landry on 01-15-2023 Polychromasia LM Ql (Bld) Slight [facility] Potassium [Moles/volume] in Serum or PlasmaOrdered By: Jose M Landry on 01-15-2023 Potassium [Moles/Vol] 4.9 mmol/L 3.5-5.[address] [facility] Protein [Mass/volume] in Ser um or PlasmaOrdered By: Jose M Landry on 01-15-2023 Protein [Mass/Vol] 7.9 g/dL 6.4-8.9 [facility] RBC Auto (Bld) [#/Vol]Ordere d By: Jose M Landry on 01-15-2023 RBC (Bld) [#/Vol] 3.40 10*6/uL 3.90-5.60 [facility] RBC morphologyOrdered By: Shanti Landry on 01-15-2023 RBC morphology finding Nom (Bld) N/A [facility] Segmented neutrophils/100 WB C Manual cnt (Bld)Ordered By: Jose M Landry on 01-15-2023 Segmented neutrophils/100 WBC (Bld) 58 % 50-70 [facility] Serum or plasma albumin/glob ulin mass ratioOrdered By: Jose M Landry on 01-15-2023 Albumin/Globulin [Mass ratio] 0.8 {ratio} [facility] Serum or plasma anion gap de terminationOrdered By: Jose M Landry on 01-15-2023 Anion gap [Moles/Vol] 15.3 mmol/L 6.0-15.0 [facility] Sodium [Moles/volume] in Ser um or PlasmaOrdered By: Jose M Landry on 01-15-2023 Sodium [Moles/Vol] 140 mmol/L 136-145 [facility] Target cellsOrdered By: Vivek Landry on 01-15-2023 Target cells LM Ql (Bld) Marked [facility] Urea nitrogen [Mass/volume] in Serum or PlasmaOrdered By: Jose M Landry on 01-15-2023 Urea nitrogen [Mass/Vol] 37 mg/dL 7-25 [facility] Variant lymphocytes/100 WBC Manual cnt (Bld)Ordered By: Jose M Landry on 01-15-2023 Variant lymphocytes/100 WBC (Bld) 2 % 0-12 [facility] WBC Auto (Bld) [#/Vol]Ordere d By: Jose M Landry on 01-15-2023 WBC (Bld) [#/Vol] 12.5 10*3/uL 4.1-10.5 [facility] Alanine aminotransferase [En zymatic activity/volume] in Serum or PlasmaOrdered By: Mervat Santiago on 12-24-2022 ALT [Catalytic activity/Vol] 19 U/L 7-52 [facility] Albumin [Mass/volume] in Ser um or Plasma by Bromocresol green (BCG) dye binding methoOrdered By: Mervat Santiago on 12-24-2022 Albumin BCG dye [Mass/Vol] 3.6 g/dL 3.5-5.7 [facility] Alkaline phosphatase [Enzyma tic activity/volume] in Serum or PlasmaOrdered By: Mervat Santiago on 12-24-2022 ALP [Catalytic activity/Vol] 174 U/L 34-104 [facility] Aspartate aminotransferase [ Enzymatic activity/volume] in Serum or PlasmaOrdered By: Mervat Santiago on 12-24-2022 AST [Catalytic activity/Vol] 22 U/L 13-39 [facility] Basophils Auto (Bld) [#/Vol] Ordered By: Mervat Santiago on 12-24-2022 Basophils (Bld) [#/Vol] 0.1 10*3/uL 0.0-0.2 [facility] Basophils/100 WBC Auto (Bld) Ordered By: Mervat Santiago on 12-24-2022 Basophils/100 WBC (Bld) 1.1 % . [facility] Bilirubin.total [Mass/volume ] in Serum or PlasmaOrdered By: Mervat Santiago on 12-24-2022 Bilirubin [Mass/Vol] 0.3 mg/dL 0.3-1.0 [facility] Calcium [Mass/volume] in Ser um or PlasmaOrdered By: Mervat Santiago on 12-24-2022 Calcium [Mass/Vol] 8.6 mg/dL 8.6-10.3 [facility] Carbon dioxide, total [Moles /volume] in Serum or PlasmaOrdered By: Mervat Santiago on 12-24-2022 CO2 [Moles/Vol] 26.7 mmol/L 21.0-31.0 [facility] Chloride [Moles/volume] in S leti or PlasmaOrdered By: Mervat Santiago on 12-24-2022 Chloride [Moles/Vol] 101 mmol/L 98-107 [facility] Cholesterol [Mass/volume] in Serum or PlasmaOrdered By: eMrvat Santiago on 12-24-2022 Cholesterol [Mass/Vol] 128 mg/dL 140-200 [facility] Comment on above: Chol less than 200 m g/dl low riskChol 201-239 mg/dl borderline riskChol 240 mg/dl and greater high risk Cholesterol in LDL Calc [Mas s/Vol]Ordered By: Mervat Santiago on 12-24-2022 Cholesterol in LDL [Mass/Vol] 42 mg/dL 0-100 [facility] Comment on above: LDL ATP III CLASSIFI CATIONLDL less than 100 mg/dL OptimalLDL 100-129 mg/dL Near or above optimalLDL 130-159 mg/dL Borderline highLDL 160-189 mg/dL HighLDL greater than 189 mg/dL Very high Cholesterol in VLDL Calc [Ma ss/Vol]Ordered By: Mervat Santiago on 12-24-2022 Cholesterol in VLDL [Mass/Vol] 23 mg/dL [facility] Creatinine [Mass/volume] in Serum or PlasmaOrdered By: Mervat Santiago on 12-24-2022 Creatinine [Mass/Vol] 3.47 mg/dL 0.70-1.[address] [facility] Eosinophils Auto (Bld) [#/Vo l]Ordered By: Mervat Santiago on 12-24-2022 Eosinophils (Bld) [#/Vol] 0.5 10*3/uL 0.0-0.45 [facility] Eosinophils/100 WBC Auto (Bl d)Ordered By: Mervat Santiago on 12-24-2022 Eosinophils/100 WBC (Bld) 4.4 % . [facility] Erythrocyte distribution wid th Auto (RBC) [Ratio]Ordered By: Mervat Santiago on 12-24-2022 Erythrocyte distribution width (RBC) [Ratio] 14.5 % 12.0-14.8 [facility] Globulin Calc (S) [Mass/Vol] Ordered By: Mervat Santiago on 12-24-2022 Globulin (S) [Mass/Vol] 4.1 g/dL [facility] Glucose [Mass/volume] in Ser um or PlasmaOrdered By: Mervat Santiago on 12-24-2022 Glucose [Mass/Vol] 229 mg/dL 70-100 [facility] Comment on above: ADA recommended refe rence rangeRandom Glucose Reference Range is dependent on time and content of last meal. Glucose of more than 200 mg/dL in a nonstressed, ambulatory subject supports the diagnosis of Diabetes Mellitus. Hematocrit Auto (Bld) [Volum e fraction]Ordered By: Mervat Santiago on 12-24-2022 Hematocrit (Bld) [Volume fraction] 29.8 % 38.8-50.0 [facility] Hemoglobin [Mass/volume] in BloodOrdered By: Mervat Santiago on 12-24-2022 Hemoglobin (Bld) [Mass/Vol] 9.7 g/dL 13.0-17.0 [facility] Leukocytes [#/volume] correc lakesha for nucleated erythrocytes in Blood by Automated counOrdered By: Mervat Santiago on 12-24-2022 WBC corrected for nucl RBC Auto (Bld) [#/Vol] 11.5 10*3/uL 4.1-10.5 [facility] Lymphocytes Auto (Bld) [#/Vo l]Ordered By: Mervat Santiago on 12-24-2022 Lymphocytes (Bld) [#/Vol] 4.0 10*3/uL 1.00-4.8 [facility] Lymphocytes/100 WBC Auto (Bl d)Ordered By: Mervat Santiago on 12-24-2022 Lymphocytes/100 WBC (Bld) 34.9 % . [facility] MCH Auto (RBC) [Entitic mass ]Ordered By: Mervat Santiago on 12-24-2022 MCH (RBC) [Entitic mass] 30.6 pg 27.5-35.2 [facility] MCHC Auto (RBC) [Mass/Vol]Or dered By: Mervat Santiago on 12-24-2022 MCHC (RBC) [Mass/Vol] 32.7 g/dL 32.5-35.[address] [facility] MCV Auto (RBC) [Entitic vol] Ordered By: Mervat Santiago on 12-24-2022 MCV (RBC) [Entitic vol] 93.6 fL 83.5-101 [facility] Monocytes Auto (Bld) [#/Vol] Ordered By: Mervat Santiago on 12-24-2022 Monocytes (Bld) [#/Vol] 0.9 10*3/uL 0.0-0.8 [facility] Monocytes/100 WBC Auto (Bld) Ordered By: Mervat Santiago on 12-24-2022 Monocytes/100 WBC (Bld) 7.5 % . [facility] Neutrophils Auto (Bld) [#/Vo l]Ordered By: Mervat Santiago on 12-24-2022 Neutrophils (Bld) [#/Vol] 6.0 10*3/uL 1.8-7.7 [facility] Neutrophils/100 WBC Auto (Bl d)Ordered By: Mervat Santiago on 12-24-2022 Neutrophils/100 WBC (Bld) 52.1 % . [facility] No Panel InformationOrdered By: Mervat Santiago on 12-24-2022 Estimated GFR (CKD-EPI) 17.968 mL/Min [facility] Creatinine Clearance (Chem N/A [facility] 17.968 mL/Min [facility] N/A [facility] Nucleated erythrocytes [Pres ence] in Blood by Automated countOrdered By: Mervat Santiago on 12-24-2022 Nucleated RBC Auto Ql (Bld) 0.1 /100{WBC} 0-0.5 [facility] Platelet adequacy [Presence] in Blood by Light microscopyOrdered By: Mervat Santiago on 12-24-2022 Platelets LM Ql (Bld) Decreased Normal [facility] Platelet mean volume Auto (B ld) [Entitic vol]Ordered By: Mervat Santiago on 12-24-2022 Platelet mean volume (Bld) [Entitic vol] 10.8 fL 6.6-10.1 [facility] Platelet morphology finding [Identifier] in BloodOrdered By: Mervat Santiago on 12-24-2022 Platelet morphology finding Nom (Bld) Normal Normal [facility] Platelets Auto (Bld) [#/Vol] Ordered By: Mervat Santiago on 12-24-2022 Platelets (Bld) [#/Vol] 143 10*3/uL 150-450 [facility] Polychromasia [Presence] in Blood by Light microscopyOrdered By: Mervat Santiago on 12-24-2022 Polychromasia LM Ql (Bld) Slight [facility] Potassium [Moles/volume] in Serum or PlasmaOrdered By: Mervat Snatiago on 12-24-2022 Potassium [Moles/Vol] 4.5 mmol/L 3.5-5.[address] [facility] Protein [Mass/volume] in Ser um or PlasmaOrdered By: Mervat Santiago on 12-24-2022 Protein [Mass/Vol] 7.7 g/dL 6.4-8.9 [facility] RBC Auto (Bld) [#/Vol]Ordere d By: Mervat Santiago on 12-24-2022 RBC (Bld) [#/Vol] 3.18 10*6/uL 3.90-5.60 [facility] RBC morphologyOrdered By: Savannah Santiago on 12-24-2022 RBC morphology finding Nom (Bld) N/A [facility] Schistocytes [Presence] in B lood by Light microscopyOrdered By: Mervat Santiago on 12-24-2022 Schistocytes LM Ql (Bld) Slight [facility] Serum or plasma albumin/glob ulin mass ratioOrdered By: Mervat Santiago on 12-24-2022 Albumin/Globulin [Mass ratio] 0.9 {ratio} [facility] Serum or plasma anion gap de terminationOrdered By: Mervat Santiago on 12-24-2022 Anion gap [Moles/Vol] 13.8 mmol/L 6.0-15.0 [facility] Serum or plasma high density lipoprotein (HDL) cholesterol measurementOrdered By: Mervat Santiago on 12-24-2022 Cholesterol in HDL [Mass/Vol] 62 mg/dL 23-92 [facility] Comment on above: HDL CHOL ATP-III CLA SSIFICATION Cardiovascular RiskHDL > or equal to 60 mg/dL LOWHDL < 40 mg/dL HIGH Serum or plasma total choles terol/high density lipoprotein (HDL) cholesterol mass ratOrdered By: Mervat Santiago on 12-24-2022 Cholesterol.total/Aleja sterol in HDL [Mass ratio] 2.1 {ratio} <5.0 [facility] Sodium [Moles/volume] in Ser um or PlasmaOrdered By: Mervat Santiago on 12-24-2022 Sodium [Moles/Vol] 137 mmol/L 136-145 [facility] Target cellsOrdered By: Samson Santiago on 12-24-2022 Target cells LM Ql (Bld) Slight [facility] Thyrotropin [Units/volume] i n Serum or PlasmaOrdered By: Mervat Santiago on 12-24-2022 TSH Qn 2.73 m[IU]/L 0.45-5.33 [facility] Triglyceride [Mass/volume] i n Serum or PlasmaOrdered By: Mervat Santiago on 12-24-2022 Triglyceride [Mass/Vol] 119 mg/dL 0-149 [facility] Comment on above: TRIG ATP III CLASSIF ICATIONTRIG less than 150 mg/dL NormalTRIG 150-199 mg/dL Borderline highTRIG 200-500 mg/dL High TRIG greater than 500 mg/dL Very highStandard traceable to the Center for Disease Conrtrol and Prevention (CDC) test method. Urea nitrogen [Mass/volume] in Serum or PlasmaOrdered By: Mervat Santiago on 12-24-2022 Urea nitrogen [Mass/Vol] 49 mg/dL 7-25 [facility] Vitamin D+Metabolites [Mass/ volume] in Serum or PlasmaOrdered By: Mervat Santiago on 12-24-2022 Vitamin D+Metabolites [Mass/Vol] 11.8 ng/mL 30-100 [facility] Comment on above: VITAMIN D STATUS 25( [place])VITAMIN D RANGE (ng/mL) Deficient <20 Insufficient 20 to <30Sufficient 30 to 100Reference: Waylon MF,Xavier NC, [place] RIOS, et al. Evaluation,treatment, and prevention of vitamin D deficiency; an Endocrine Society clinical practice guideline. JCEM. 2010; 96(7):1911-30. WBC Auto (Bld) [#/Vol]Ordere d By: Mervat Santiago on 12-24-2022 WBC (Bld) [#/Vol] 11.5 10*3/uL 4.1-10.5 [facility] Screenson 12-20-2022 Screens [id number]#[id number] CD:127 Normal [facility] Screens [id number] CD:127 Normal [facility] Patient Educationon 12-20-19 Patient Education Urology Benign Prostatic Hyperplasia Benign prostatic hyperplasia (BPH) is an enlarged prostate gland that is caused by the normal aging process. The prostate may get bigger as a man gets older. The condition is not caused by cancer. The prostate is a walnut-sized gland that is involved in the production of semen. It is located in front of the rectum and below the bladder. The bladder stores urine. The urethra carries stored urine out of the body. An enlarged prostate can press on the urethra. This can make it harder to pass urine. The buildup of urine in the bladder can cause infection. Back pressure and infection may progress to bladder damage and kidney (renal) failure. What are the causes? This condition is part of the normal aging process. However, not all men develop problems from this condition. If the prostate enlarges away from the urethra, urine flow will not be blocked. If it enlarges toward the urethra and compresses it, there will be problems passing urine. What increases the risk? This condition is more likely to develop in men older than 50 years. What are the signs or symptoms? Symptoms of this condition include: ? Getting up often during the night to urinate. ? Needing to urinate frequently during the day. ? Difficulty starting urine flow. ? Decrease in size and strength of your urine stream. ? Leaking (dribbling) after urinating. ? Inability to pass urine. This needs immediate treatment. ? Inability to completely empty your bladder. ? Pain when you pass urine. This is more common if there is also an infection. ? Urinary tract infection (UTI). How is this diagnosed? This condition is diagnosed based on your medical history, a physical exam, and your symptoms. Tests will also be done, such as: ? A post-void bladder scan. This measures any amount of urine that may remain in your bladder after you finish urinating. ? A digital rectal exam. In a rectal exam, your health care provider checks your prostate by putting a lubricated, gloved finger into your rectum to feel the back of your prostate gland. This exam detects the size of your gland and any abnormal lumps or growths. ? An exam of your urine (urinalysis). ? A prostate specific antigen (PSA) screening. This is a blood test used to screen for prostate cancer. ? An ultrasound. This test uses sound waves to electronically produce a picture of your prostate gland. Your health care provider may refer you to a specialist in kidney and prostate diseases (urologist). How is this treated? Once symptoms begin, your health care provider will monitor your condition (active surveillance or watchful waiting). Treatment for this condition will depend on the severity of your condition. Treatment may include: ? Observation and yearly exams. This may be the only treatment needed if your condition and symptoms are mild. ? Medicines to relieve your symptoms, including: ? Medicines to shrink the prostate. ? Medicines to relax the muscle of the prostate. ? Surgery in severe cases. Surgery may include: ? Prostatectomy. In this procedure, the prostate tissue is removed completely through an open incision or with a laparoscope or robotics. ? Transurethral resection of the prostate (TURP). In this procedure, a tool is inserted through the opening at the tip of the penis (urethra). It is used to cut away tissue of the inner core of the prostate. The pieces are removed through the same opening of the penis. This removes the blockage. ? Transurethral incision (TUIP). In this procedure, small cuts are made in the prostate. This lessens the prostate's pressure on the urethra. ? Transurethral microwave thermotherapy (TUMT). This procedure uses microwaves to create heat. The heat destroys and removes a small amount of prostate tissue. ? Transurethral needle ablation (TUNA). This procedure uses radio frequencies to destroy and remove a small amount of prostate tissue. ? Interstitial laser coagulation (ILC). This procedure uses a laser to destroy and remove a small amount of prostate tissue. ? Transurethral electrovaporization (TUVP). This procedure uses electrodes to destroy and remove a small amount of prostate tissue. ? Prostatic urethral lift. This procedure inserts an implant to push the lobes of the prostate away from the urethra. Follow these instructions at home: ? Take kngo-vqz-yvahham and prescription medicines only as told by your health care provider. ? Monitor your symptoms for any changes. Contact your health care provider with any changes. ? Avoid drinking large amounts of liquid before going to bed or out in public. ? Avoid or reduce how much caffeine or alcohol you drink. ? Give yourself time when you urinate. ? Keep all follow-up visits. This is important. Contact a health care provider if: ? You have unexplained back pain. ? Your symptoms do not get better with treatment. ? You develop side effects from the medicine (more content not included)... Normal [facility] Urology Office/Clinic Noteon 12-19-2022 Urology Office/Clinic Note Chief Complaint Pt is here for 5 month f/u HPI Staff Pt is here for 2 month follow up w/BMP. BUN 38, Creatinine 4.44 done 08/29/22. Previous DX: BPH w/urinary obstruction, ED, frequency of urination, hydronephrosis, kidney stone, nocturia, post void dribbling, ureteral stricture, urgency of urination, urinary retention. S/P Cyst/06/27. Dysuria: denies Incomplete bladder emptying: denies Hematuria: denies Frequency: every hour Urgency: yes Nocturia: 3x a night Stream: steady stream Leaking: denies Post void dripping: denies Wearing pads/ Depends: yes wears depends Urge incontinence: denies Stress incontinence: denies Incontinence without Sensory Awareness: denies Abdominal pain: denies Flank pain: denies Sexual complaints: _ History of Present Illness Tests reviewed: reviewed BMP I have reviewed the previous health record information and history for this patient from Dr. Corbett. I have reviewed and verified the staff HPI to be accurate for this encounter. There have been no associated fever, chills, flank pain, or blood in the urine. Denies any urinary infections since last encounter. Review of Systems PHQ Score Initial Depression Screen Score: 0 ROS - Provider Constitutional: denies weight loss, denies hot flashes. Eyes: denies eye problems. Gastrointestinal: denies nausea, denies vomiting. Cardiovascular: denies chest pain or angina. Integumentary: no dryness Musculoskeletal: denies musculoskeletal symptoms. ENMT: denies otolaryngeal symptoms. Respiratory: no shortness of breath. Heme/Lymph: denies easy bleeding tendency, denies easy bruising tendency. Psychiatric: no confusion, no anxiety. Genitourinary: See HPI. Physical Exam Vitals & Measurements HR: 86(Peripheral) BP: 137/81 HT: 74 in HT: 187 cm General Appearance: alert, no distress, well nourished, well developed male. Wheelchair-bound Genitourinary: Flank Pain: none. Bladder: nonpalpable. Assessment/Plan 72-year-old male with a history of CKD and chronic left hydronephrosis secondary to ureteral stricture who presents for follow-up 1. Hydronephrosis (N13.1: Hydronephrosis with ureteral stricture, not elsewhere classified) 12/05/21: Crea 3.38. eGFR AA 22. BUN 37. 01/11/22: Crea 3.84. eGFR AA 19. 04/09/22: Crea 4.7. eGFR AA 15. 06/04/22: Crea 4.6. eGFR AA 15. (after L NT placement) 07/25/22: Crea 4.7. eGFR AA 15. 08/31/22: Crea 4.44. eGFR 13. 12/13/22: Crea. 3.2. S/p IR placement of L neph tube done 05/06/22 - purulent output, Cx proteus, treated with keflex x 2 wks, refused IV abx and admission. IR exchange Neph tube done 07/01/22 and 07/17/22 -due to significant hematuria/clots in NT. Unable to internalize stent due to severe ureteral stricture. CT AP wo con 07/17/22 [facility] - L PCN tube. Nonobstructing stone in L renal collecting system. Gas and hyperattenuating material w/in the L renal collecting system which is new compared to prior exam, may be secondary to PCN tube. Persistent hydronephrosis and proximal hydroureter on the L. Crea improved, after neph tube removed actually. Completed abx a few mos ago for wound infection (not UTI) Denies flank pain. -Follow up 1 yr no labs or sooner if needed. Pt understands and agrees with plan. Pt knows to notify office if he were to develop any UTIs or other urologic complications. 2. Ureteral stricture (N13.5: Crossing vessel and stricture of ureter without hydronephrosis) See#1. Unable to internalize stent due to complete mid-distal left ureteral stricture High risk for ureteral stricture repair or nephrectomy. 3. Kidney stone (N20.0: Calculus of kidney) Hx BL URS, LL stent with Dr. Giles 2020. KUB 04/09/22 - Right superior 5 mm stone. A 6 mm stone in inferior L kidney. S/p cysto/L RPG/L ureteroscopy with attempted UD done 04/09/22 for left proximal hydroureteronephrosis, left kidney stone, and left distal ureteral stricture. Unable to place stent due to stricture. No stone in ureter. -Cont to monitor. 4. BPH with urinary obstruction (N40.1: Benign prostatic hyperplasia with lower urinary tract symptoms) No sample provided for UA today. IPSS 11. Taking Flomax 0.4 mg qd. C/o frequency but is on Lasix. No urinary complaints. -Continue symptomatic monitoring. Timed voids. Diabetes control. 5. Erectile dysfunction (N52.9: Male erectile dysfunction, unspecified) PAOLA 1 (1). Cialis as needed. Follow-up With When Contact Information Anabela HOLLOWAY, Kiko Gautam, URL, URO Additional Instructions: 1 yr no labs Patient Education Benign Prostatic Hyperplasia I, Eulalia Cornell, personally scribed for Dr. Corbett on 12/19/2022 15:28:08. . Documentation recorded by the scribe, Eulalia Cornell, accurately reflects the services(s) I performed and decisions made by me. Authenticated by Dr. Corbett on 12/19/2022 16:07:54. Problem List/Past Medical History Ongoing Alcoholism Antiplatelet or antithrombotic lo (more content not included)... Normal [facility] Comment on above: Result Comment: Elec tronically Signed By: Anabela HOLLOWAY, Kiko Gautam\.br\Date and Time Signed: 12/19/22 16:08 EDT\.br\Electronically Co-Signed By: Eulalia Cornell\.br\Date and Time Co-Signed: 12/19/22 15:28 EDT Alanine aminotransferase [En zymatic activity/volume] in Serum or PlasmaOrdered By: Jose M Landry on 12-13-2022 ALT [Catalytic activity/Vol] 18 U/L 7-52 [facility] Albumin [Mass/volume] in Ser um or Plasma by Bromocresol green (BCG) dye binding methoOrdered By: Jose M Landry on 12-13-2022 Albumin BCG dye [Mass/Vol] 3.7 g/dL 3.5-5.7 [facility] Alkaline phosphatase [Enzyma tic activity/volume] in Serum or PlasmaOrdered By: Jose M Landry on 12-13-2022 ALP [Catalytic activity/Vol] 157 U/L 34-104 [facility] Aspartate aminotransferase [ Enzymatic activity/volume] in Serum or PlasmaOrdered By: Jose M Landry on 12-13-2022 AST [Catalytic activity/Vol] 28 U/L 13-39 [facility] Basophils Auto (Bld) [#/Vol] Ordered By: Jose M Landry on 12-13-2022 Basophils (Bld) [#/Vol] 0.1 10*3/uL 0.0-0.2 [facility] Basophils/100 WBC Auto (Bld) Ordered By: Jose M Landry on 12-13-2022 Basophils/100 WBC (Bld) 0.5 % . [facility] Bilirubin.total [Mass/volume ] in Serum or PlasmaOrdered By: Jose M Landry on 12-13-2022 Bilirubin [Mass/Vol] 0.3 mg/dL 0.3-1.0 [facility] Calcium [Mass/volume] in Ser um or PlasmaOrdered By: Jose M Landry on 12-13-2022 Calcium [Mass/Vol] 9.0 mg/dL 8.6-10.3 [facility] Carbon dioxide, total [Moles /volume] in Serum or PlasmaOrdered By: Jose M Landry on 12-13-2022 CO2 [Moles/Vol] 28.4 mmol/L 21.0-31.0 [facility] Chloride [Moles/volume] in S leti or PlasmaOrdered By: Jose M Landry on 12-13-2022 Chloride [Moles/Vol] 103 mmol/L 98-107 [facility] Creatinine [Mass/volume] in Serum or PlasmaOrdered By: Jose M Landry on 12-13-2022 Creatinine [Mass/Vol] 3.21 mg/dL 0.70-1.[address] [facility] Eosinophils Auto (Bld) [#/Vo l]Ordered By: Jose M Landry on 12-13-2022 Eosinophils (Bld) [#/Vol] 0.4 10*3/uL 0.0-0.45 [facility] Eosinophils/100 WBC Auto (Bl d)Ordered By: Jose M Landry on 12-13-2022 Eosinophils/100 WBC (Bld) 3.5 % . [facility] Erythrocyte distribution wid th Auto (RBC) [Ratio]Ordered By: Jose M Landry on 12-13-2022 Erythrocyte distribution width (RBC) [Ratio] 14.9 % 12.0-14.8 [facility] Globulin Calc (S) [Mass/Vol] Ordered By: Jose M Landry on 12-13-2022 Globulin (S) [Mass/Vol] 4.3 g/dL [facility] Glucose [Mass/volume] in Ser um or PlasmaOrdered By: Jose M Landry on 12-13-2022 Glucose [Mass/Vol] 110 mg/dL 70-100 [facility] Comment on above: ADA recommended refe rence rangeRandom Glucose Reference Range is dependent on time and content of last meal. Glucose of more than 200 mg/dL in a nonstressed, ambulatory subject supports the diagnosis of Diabetes Mellitus. Hematocrit Auto (Bld) [Volum e fraction]Ordered By: Jose M Landry on 12-13-2022 Hematocrit (Bld) [Volume fraction] 36.8 % 38.8-50.0 [facility] Hemoglobin [Mass/volume] in BloodOrdered By: Jose M Landry on 12-13-2022 Hemoglobin (Bld) [Mass/Vol] 11.8 g/dL 13.0-17.0 [facility] Leukocytes [#/volume] correc lakesha for nucleated erythrocytes in Blood by Automated counOrdered By: Jose M Landry on 12-13-2022 WBC corrected for nucl RBC Auto (Bld) [#/Vol] 11.3 10*3/uL 4.1-10.5 [facility] Lymphocytes Auto (Bld) [#/Vo l]Ordered By: Jose M Landry on 12-13-2022 Lymphocytes (Bld) [#/Vol] 5.3 10*3/uL 1.00-4.8 [facility] Lymphocytes/100 WBC Auto (Bl d)Ordered By: Jose M Landry on 12-13-2022 Lymphocytes/100 WBC (Bld) 47.0 % . [facility] MCH Auto (RBC) [Entitic mass ]Ordered By: Jose M Landry on 12-13-2022 MCH (RBC) [Entitic mass] 30.3 pg 27.5-35.2 [facility] MCHC Auto (RBC) [Mass/Vol]Or dered By: Jose M Landry on 12-13-2022 MCHC (RBC) [Mass/Vol] 32.1 g/dL 32.5-35.[address] [facility] MCV Auto (RBC) [Entitic vol] Ordered By: Jose M Landry on 12-13-2022 MCV (RBC) [Entitic vol] 94.6 fL 83.5-101 [facility] Monocytes Auto (Bld) [#/Vol] Ordered By: Jose M Landry on 12-13-2022 Monocytes (Bld) [#/Vol] 0.7 10*3/uL 0.0-0.8 [facility] Monocytes/100 WBC Auto (Bld) Ordered By: Jose M Landry on 12-13-2022 Monocytes/100 WBC (Bld) 6.0 % . [facility] Neutrophils Auto (Bld) [#/Vo l]Ordered By: Jose M Landry on 12-13-2022 Neutrophils (Bld) [#/Vol] 4.9 10*3/uL 1.8-7.7 [facility] Neutrophils/100 WBC Auto (Bl d)Ordered By: Jose M Landry on 12-13-2022 Neutrophils/100 WBC (Bld) 43.0 % . [facility] No Panel InformationOrdered By: Jose M Landry on 12-13-2022 Estimated GFR (CKD-EPI) 19.729 mL/Min [facility] Creatinine Clearance (Chem N/A [facility] 19.729 mL/Min [facility] N/A [facility] Nucleated erythrocytes [Pres ence] in Blood by Automated countOrdered By: Jose M Landry on 12-13-2022 Nucleated RBC Auto Ql (Bld) 0.2 /100{WBC} 0-0.5 [facility] Platelet mean volume Auto (B ld) [Entitic vol]Ordered By: Jose M Landry on 12-13-2022 Platelet mean volume (Bld) [Entitic vol] 11.1 fL 6.6-10.1 [facility] Platelets Auto (Bld) [#/Vol] Ordered By: Jose M Landry on 12-13-2022 Platelets (Bld) [#/Vol] 200 10*3/uL 150-450 [facility] Potassium [Moles/volume] in Serum or PlasmaOrdered By: Jose M Landry on 12-13-2022 Potassium [Moles/Vol] 4.7 mmol/L 3.5-5.[address] [facility] Protein [Mass/volume] in Ser um or PlasmaOrdered By: Jose M Landry on 12-13-2022 Protein [Mass/Vol] 8.0 g/dL 6.4-8.9 [facility] RBC Auto (Bld) [#/Vol]Ordere d By: Jose M Landry on 12-13-2022 RBC (Bld) [#/Vol] 3.90 10*6/uL 3.90-5.60 [facility] Serum or plasma albumin/glob ulin mass ratioOrdered By: Jose M Landry on 12-13-2022 Albumin/Globulin [Mass ratio] 0.9 {ratio} [facility] Serum or plasma anion gap de terminationOrdered By: Jose M Landry on 12-13-2022 Anion gap [Moles/Vol] 14.3 mmol/L 6.0-15.0 [facility] Sodium [Moles/volume] in Ser um or PlasmaOrdered By: Jose M Landry on 12-13-2022 Sodium [Moles/Vol] 141 mmol/L 136-145 [facility] Urea nitrogen [Mass/volume] in Serum or PlasmaOrdered By: Jose M Landry on 12-13-2022 Urea nitrogen [Mass/Vol] 41 mg/dL 7-25 [facility] WBC Auto (Bld) [#/Vol]Ordere d By: Jose M Landry on 12-13-2022 WBC (Bld) [#/Vol] 11.3 10*3/uL 4.1-10.5 [facility] Anisocytosis LM Ql (Bld)Orde red By: Jose M Landry on 11-29-2022 Anisocytosis Ql (Bld) Slight [facility] Basophils Auto (Bld) [#/Vol] Ordered By: Jose M Landry on 11-29-2022 Basophils (Bld) [#/Vol] 0.0 10*3/uL 0.0-0.2 [facility] Basophils/100 WBC Auto (Bld) Ordered By: Jose M Landry on 11-29-2022 Basophils/100 WBC (Bld) 0.3 % . [facility] Eosinophils Auto (Bld) [#/Vo l]Ordered By: Jose M Landry on 11-29-2022 Eosinophils (Bld) [#/Vol] 0.7 10*3/uL 0.0-0.45 [facility] Eosinophils/100 WBC Auto (Bl d)Ordered By: Jose M Landry on 11-29-2022 Eosinophils/100 WBC (Bld) 6.1 % . [facility] Erythrocyte distribution wid th Auto (RBC) [Ratio]Ordered By: Jose M Landry on 11-29-2022 Erythrocyte distribution width (RBC) [Ratio] 15.7 % 12.0-14.8 [facility] Hematocrit Auto (Bld) [Volum e fraction]Ordered By: Jose M Landry on 11-29-2022 Hematocrit (Bld) [Volume fraction] 35.9 % 38.8-50.0 [facility] Hemoglobin [Mass/volume] in BloodOrdered By: Jose M Landry on 11-29-2022 Hemoglobin (Bld) [Mass/Vol] 11.7 g/dL 13.0-17.0 [facility] Leukocytes [#/volume] correc lakesha for nucleated erythrocytes in Blood by Automated counOrdered By: Jose M Landry on 11-29-2022 WBC corrected for nucl RBC Auto (Bld) [#/Vol] 11.1 10*3/uL 4.1-10.5 [facility] Lymphocytes Auto (Bld) [#/Vo l]Ordered By: Jose M Landry on 11-29-2022 Lymphocytes (Bld) [#/Vol] 3.8 10*3/uL 1.00-4.8 [facility] Lymphocytes/100 WBC Auto (Bl d)Ordered By: Jose M Landry on 11-29-2022 Lymphocytes/100 WBC (Bld) 34.0 % . [facility] MCH Auto (RBC) [Entitic mass ]Ordered By: Jose M Landry on 11-29-2022 MCH (RBC) [Entitic mass] 30.9 pg 27.5-35.2 [facility] MCHC Auto (RBC) [Mass/Vol]Or dered By: Jose M Landry on 11-29-2022 MCHC (RBC) [Mass/Vol] 32.5 g/dL 32.5-35.[address] [facility] MCV Auto (RBC) [Entitic vol] Ordered By: Jose M Landry on 11-29-2022 MCV (RBC) [Entitic vol] 95.3 fL 83.5-101 [facility] Monocytes Auto (Bld) [#/Vol] Ordered By: Jose M Landry on 11-29-2022 Monocytes (Bld) [#/Vol] 1.2 10*3/uL 0.0-0.8 [facility] Monocytes/100 WBC Auto (Bld) Ordered By: JoseM Landry on 11-29-2022 Monocytes/100 WBC (Bld) 11.1 % . [facility] Neutrophils Auto (Bld) [#/Vo l]Ordered By: Jose M Landry on 11-29-2022 Neutrophils (Bld) [#/Vol] 5.4 10*3/uL 1.8-7.7 [facility] Neutrophils/100 WBC Auto (Bl d)Ordered By: Jose M Landry on 11-29-2022 Neutrophils/100 WBC (Bld) 48.5 % . [facility] Nucleated erythrocytes [Pres ence] in Blood by Automated countOrdered By: Jose M Landry on 11-29-2022 Nucleated RBC Auto Ql (Bld) 0.2 /100{WBC} 0-0.5 [facility] Platelet adequacy [Presence] in Blood by Light microscopyOrdered By: Jose M Landry on 11-29-2022 Platelets LM Ql (Bld) Normal Normal [facility] Platelet mean volume Auto (B ld) [Entitic vol]Ordered By: Jose M Landry on 11-29-2022 Platelet mean volume (Bld) [Entitic vol] 11.0 fL 6.6-10.1 [facility] Platelet morphology finding [Identifier] in BloodOrdered By: Jose M Landry on 11-29-2022 Platelet morphology finding Nom (Bld) N/A [facility] Platelets Auto (Bld) [#/Vol] Ordered By: Jose M Landry on 11-29-2022 Platelets (Bld) [#/Vol] 152 10*3/uL 150-450 [facility] Platelets Large [Presence] i n Blood by Light microscopyOrdered By: Jose M Landry on 11-29-2022 Platelets Large LM Ql (Bld) Moderate [facility] RBC Auto (Bld) [#/Vol]Ordere d By: Jose M Landry on 11-29-2022 RBC (Bld) [#/Vol] 3.77 10*6/uL 3.90-5.60 [facility] RBC morphologyOrdered By: Shanti Landry on 11-29-2022 RBC morphology finding Nom (Bld) N/A [facility] Target cellsOrdered By: Vivek Landry on 11-29-2022 Target cells LM Ql (Bld) Moderate [facility] WBC Auto (Bld) [#/Vol]Ordere d By: Jose M Landry on 11-29-2022 WBC (Bld) [#/Vol] 11.1 10*3/uL 4.1-10.5 [facility] Alanine aminotransferase [En zymatic activity/volume] in Serum or PlasmaOrdered By: Jose M Landry on 11-27-2022 ALT [Catalytic activity/Vol] 7 U/L 7-52 [facility] Albumin [Mass/volume] in Ser um or Plasma by Bromocresol green (BCG) dye binding methoOrdered By: Jose M Landry on 11-27-2022 Albumin BCG dye [Mass/Vol] 3.7 g/dL 3.5-5.7 [facility] Alkaline phosphatase [Enzyma tic activity/volume] in Serum or PlasmaOrdered By: Jose M Landry on 11-27-2022 ALP [Catalytic activity/Vol] 142 U/L 34-104 [facility] Aspartate aminotransferase [ Enzymatic activity/volume] in Serum or PlasmaOrdered By: Jose M Landry on 11-27-2022 AST [Catalytic activity/Vol] 15 U/L 13-39 [facility] Bilirubin.total [Mass/volume ] in Serum or PlasmaOrdered By: Jose M Landry on 11-27-2022 Bilirubin [Mass/Vol] 0.4 mg/dL 0.3-1.0 [facility] Calcium [Mass/volume] in Ser um or PlasmaOrdered By: Jose M Landry on 11-27-2022 Calcium [Mass/Vol] 8.3 mg/dL 8.6-10.3 [facility] Carbon dioxide, total [Moles /volume] in Serum or PlasmaOrdered By: Jose M Landry on 11-27-2022 CO2 [Moles/Vol] 26.7 mmol/L 21.0-31.0 [facility] Chloride [Moles/volume] in S leti or PlasmaOrdered By: Jose M Landry on 11-27-2022 Chloride [Moles/Vol] 102 mmol/L 98-107 [facility] Creatinine [Mass/volume] in Serum or PlasmaOrdered By: Jose M Landry on 11-27-2022 Creatinine [Mass/Vol] 4.12 mg/dL 0.70-1.[address] [facility] Ferritin [Mass/volume] in Se rum or PlasmaOrdered By: Jose M Landry on 11-27-2022 Ferritin [Mass/Vol] 173.0 ng/mL 23.9-336.2 [facility] Globulin Calc (S) [Mass/Vol] Ordered By: Jose M Landry on 11-27-2022 Globulin (S) [Mass/Vol] 4.5 g/dL [facility] Glucose [Mass/volume] in Ser um or PlasmaOrdered By: Jose M Landry on 11-27-2022 Glucose [Mass/Vol] 154 mg/dL 70-100 [facility] Iron [Mass/volume] in Serum or PlasmaOrdered By: Jose M Landry on 11-27-2022 Iron [Mass/Vol] 94 ug/dL 50-212 [facility] Iron binding capacity [Mass/ volume] in Serum or PlasmaOrdered By: Jose M Landry on 11-27-2022 Iron binding capacity [Mass/Vol] 276 ug/dL 255-450 [facility] Iron saturation [Mass Fracti on] in Serum or PlasmaOrdered By: Jose M Landry on 11-27-2022 Iron saturation [Mass fraction] 34.1 % 20-50 [facility] No Panel InformationOrdered By: Jose M Landry on 11-27-2022 14.622 mL/Min [facility] N/A [facility] Potassium [Moles/volume] in Serum or PlasmaOrdered By: Jose M Landry on 11-27-2022 Potassium [Moles/Vol] 4.2 mmol/L 3.5-5.[address] [facility] Protein [Mass/volume] in Ser um or PlasmaOrdered By: Jose M Landry on 11-27-2022 Protein [Mass/Vol] 8.2 g/dL 6.4-8.9 [facility] Serum or plasma albumin/glob ulin mass ratioOrdered By: Jose M Landry on 11-27-2022 Albumin/Globulin [Mass ratio] 0.8 {ratio} [facility] Serum or plasma anion gap de terminationOrdered By: Jose M Landry on 11-27-2022 Anion gap [Moles/Vol] 14.5 mmol/L 6.0-15.0 [facility] Sodium [Moles/volume] in Ser um or PlasmaOrdered By: Jose M Landry on 11-27-2022 Sodium [Moles/Vol] 139 mmol/L 136-145 [facility] Transferrin [Mass/volume] in Serum or PlasmaOrdered By: Jose M Landry on 11-27-2022 Transferrin [Mass/Vol] 197 mg/dL 203-362 [facility] Urea nitrogen [Mass/volume] in Serum or PlasmaOrdered By: Jose M Landry on 11-27-2022 Urea nitrogen [Mass/Vol] 43 mg/dL 7- [facility] Alanine aminotransferase [En zymatic activity/volume] in Serum or PlasmaOrdered By: Jose M Landry on 11-15-2022 ALT [Catalytic activity/Vol] 5 U/L [facility] Albumin [Mass/volume] in Ser um or Plasma by Bromocresol green (BCG) dye binding methoOrdered By: Jose M Landry on 11-15-2022 Albumin BCG dye [Mass/Vol] 3.4 g/dL 3.5-5.7 [facility] Alkaline phosphatase [Enzyma tic activity/volume] in Serum or PlasmaOrdered By: Jose M Landry on 11-15-2022 ALP [Catalytic activity/Vol] 127 U/L 34-104 [facility] Anisocytosis LM Ql (Bld)Orde red By: Jose M Landry on 11-15-2022 Anisocytosis Ql (Bld) Moderate [facility] Aspartate aminotransferase [ Enzymatic activity/volume] in Serum or PlasmaOrdered By: Jose M Landry on 11-15-2022 AST [Catalytic activity/Vol] 13 U/L 13-39 [facility] Basophils Auto (Bld) [#/Vol] Ordered By: Jose M Landry on 11-15-2022 Basophils (Bld) [#/Vol] N/A [facility] Basophils/100 WBC Auto (Bld) Ordered By: Jose M Landry on 11-15-2022 Basophils/100 WBC (Bld) N/A [facility] Bilirubin.total [Mass/volume ] in Serum or PlasmaOrdered By: Jose M Landry on 11-15-2022 Bilirubin [Mass/Vol] 0.3 mg/dL 0.3-1.0 [facility] Calcium [Mass/volume] in Ser um or PlasmaOrdered By: Jose M Landry on 11-15-2022 Calcium [Mass/Vol] 8.3 mg/dL 8.6-10.3 [facility] Carbon dioxide, total [Moles /volume] in Serum or PlasmaOrdered By: Jose M Landry on 11-15-2022 CO2 [Moles/Vol] 24.8 mmol/L 21.0-31.0 [facility] Chloride [Moles/volume] in S leti or PlasmaOrdered By: Jose M Landry on 11-15-2022 Chloride [Moles/Vol] 105 mmol/L 98-107 [facility] Creatinine [Mass/volume] in Serum or PlasmaOrdered By: Jose M Landry on 11-15-2022 Creatinine [Mass/Vol] 5.49 mg/dL 0.70-1.[address] [facility] Eosinophils Auto (Bld) [#/Vo l]Ordered By: Jose M Landry on 11-15-2022 Eosinophils (Bld) [#/Vol] N/A [facility] Eosinophils/100 WBC Auto (Bl d)Ordered By: Jose M Landry on 11-15-2022 Eosinophils/100 WBC (Bld) N/A [facility] Eosinophils/100 WBC Manual c nt (Bld)Ordered By: Jose M Landry on 11-15-2022 Eosinophils/100 WBC (Bld) 8 % 1-3 [facility] Erythrocyte distribution wid th Auto (RBC) [Ratio]Ordered By: Jose M Landry on 11-15-2022 Erythrocyte distribution width (RBC) [Ratio] 16.9 % 12.0-14.8 [facility] Giant platelets/100 leukocyt es [Ratio] in Blood by Manual countOrdered By: Jose M Landry on 11-15-2022 Giant platelets/100 WBC Manual cnt (Bld) [Ratio] 6 /100{WBC} [facility] Globulin Calc (S) [Mass/Vol] Ordered By: Jose M Landry on 11-15-2022 Globulin (S) [Mass/Vol] 3.9 g/dL [facility] Glucose [Mass/volume] in Ser um or PlasmaOrdered By: Jose M Landry on 11-15-2022 Glucose [Mass/Vol] 133 mg/dL 70-100 [facility] Hematocrit Auto (Bld) [Volum e fraction]Ordered By: Jose M Landry on 11-15-2022 Hematocrit (Bld) [Volume fraction] 34.2 % 38.8-50.0 [facility] Hemoglobin [Mass/volume] in BloodOrdered By: Jose M Landry on 11-15-2022 Hemoglobin (Bld) [Mass/Vol] 10.8 g/dL 13.0-17.0 [facility] Hypochromia LM Ql (Bld)Order ed By: Jose M Landry on 11-15-2022 Hypochromia Ql (Bld) Slight [facility] Leukocytes [#/volume] correc lakesha for nucleated erythrocytes in Blood by Automated counOrdered By: Jose M Landry on 11-15-2022 WBC corrected for nucl RBC Auto (Bld) [#/Vol] 12.9 10*3/uL 4.1-10.5 [facility] Lymphocytes Auto (Bld) [#/Vo l]Ordered By: Jose M Landry on 11-15-2022 Lymphocytes (Bld) [#/Vol] N/A [facility] Lymphocytes/100 WBC Auto (Bl d)Ordered By: Jose M Landry on 11-15-2022 Lymphocytes/100 WBC (Bld) N/A [facility] Lymphocytes/100 WBC Manual c nt (Bld)Ordered By: Jose M Landry on 11-15-2022 Lymphocytes/100 WBC (Bld) 26 % 18-42 [facility] MCH Auto (RBC) [Entitic mass ]Ordered By: Jose M Landry on 11-15-2022 MCH (RBC) [Entitic mass] 30.3 pg 27.5-35.2 [facility] MCHC Auto (RBC) [Mass/Vol]Or dered By: Jose M Landry on 11-15-2022 MCHC (RBC) [Mass/Vol] 31.7 g/dL 32.5-35.[address] [facility] MCV Auto (RBC) [Entitic vol] Ordered By: Jose M Landry on 11-15-2022 MCV (RBC) [Entitic vol] 95.6 fL 83.5-101 [facility] Macrocytes LM Ql (Bld)Ordere d By: Jose M Landry on 11-15-2022 Macrocytes Ql (Bld) Moderate [facility] Monocytes Auto (Bld) [#/Vol] Ordered By: Jose M Landry on 11-15-2022 Monocytes (Bld) [#/Vol] N/A [facility] Monocytes/100 WBC Auto (Bld) Ordered By: Jose M Landry on 11-15-2022 Monocytes/100 WBC (Bld) N/A [facility] Monocytes/100 WBC Manual cnt (Bld)Ordered By: Jose M Landry on 11-15-2022 Monocytes/100 WBC (Bld) 6 % 2-11 [facility] Neutrophils Auto (Bld) [#/Vo l]Ordered By: Jose M Landry on 11-15-2022 Neutrophils (Bld) [#/Vol] N/A [facility] Neutrophils/100 WBC Auto (Bl d)Ordered By: Jose M Landry on 11-15-2022 Neutrophils/100 WBC (Bld) N/A [facility] No Panel InformationOrdered By: Jose M Landry on 11-15-2022 10.361 mL/Min [facility] N/A [facility] Nucleated erythrocytes [Pres ence] in Blood by Automated countOrdered By: Jose M Landry on 11-15-2022 Nucleated RBC Auto Ql (Bld) N/A [facility] Platelet adequacy [Presence] in Blood by Light microscopyOrdered By: Jose M Landry on 11-15-2022 Platelets LM Ql (Bld) Normal Normal [facility] Platelet mean volume Auto (B ld) [Entitic vol]Ordered By: Jose M Landry on 11-15-2022 Platelet mean volume (Bld) [Entitic vol] 9.9 fL 6.6-10.1 [facility] Platelet morphology finding [Identifier] in BloodOrdered By: Jose M Landry on 11-15-2022 Platelet morphology finding Nom (Bld) N/A [facility] Platelets Auto (Bld) [#/Vol] Ordered By: Jose M Landry on 11-15-2022 Platelets (Bld) [#/Vol] 201 10*3/uL 150-450 [facility] Platelets Large [Presence] i n Blood by Light microscopyOrdered By: Jose M Landry on 11-15-2022 Platelets Large LM Ql (Bld) Slight [facility] Poikilocytosis [Presence] in Blood by Light microscopyOrdered By: Jose M Landry on 11-15-2022 Poikilocytosis LM Ql (Bld) Slight [facility] Polychromasia [Presence] in Blood by Light microscopyOrdered By: Jose M Landry on 11-15-2022 Polychromasia LM Ql (Bld) Slight [facility] Potassium [Moles/volume] in Serum or PlasmaOrdered By: Jose M Landry on 11-15-2022 Potassium [Moles/Vol] 4.2 mmol/L 3.5-5.[address] [facility] Protein [Mass/volume] in Ser um or PlasmaOrdered By: Jose M Landry on 11-15-2022 Protein [Mass/Vol] 7.3 g/dL 6.4-8.9 [facility] RBC Auto (Bld) [#/Vol]Ordere d By: Jose M Landry on 11-15-2022 RBC (Bld) [#/Vol] 3.57 10*6/uL 3.90-5.60 [facility] RBC morphologyOrdered By: Shanti Landry on 11-15-2022 RBC morphology finding Nom (Bld) N/A [facility] Segmented neutrophils/100 WB C Manual cnt (Bld)Ordered By: Jose M Landry on 11-15-2022 Segmented neutrophils/100 WBC (Bld) 61 % 50-70 [facility] Serum or plasma albumin/glob ulin mass ratioOrdered By: Jose M Landry on 11-15-2022 Albumin/Globulin [Mass ratio] 0.9 {ratio} [facility] Serum or plasma anion gap de terminationOrdered By: Jose M Landry on 11-15-2022 Anion gap [Moles/Vol] 14.4 mmol/L 6.0-15.0 [facility] Sodium [Moles/volume] in Ser um or PlasmaOrdered By: Jose M Landry on 11-15-2022 Sodium [Moles/Vol] 140 mmol/L 136-145 [facility] Target cellsOrdered By: Vivek Landry on 11-15-2022 Target cells LM Ql (Bld) Moderate [facility] Urea nitrogen [Mass/volume] in Serum or PlasmaOrdered By: Jose M Landry on 11-15-2022 Urea nitrogen [Mass/Vol] 42 mg/dL 7-25 [facility] WBC Auto (Bld) [#/Vol]Ordere d By: Jose M Landry on 11-15-2022 WBC (Bld) [#/Vol] 12.9 10*3/uL 4.1-10.5 [facility] Alanine aminotransferase [En zymatic activity/volume] in Serum or PlasmaOrdered By: Jose M Landry on 11-04-2022 ALT [Catalytic activity/Vol] 8 U/L 7-52 [facility] Albumin [Mass/volume] in Ser um or Plasma by Bromocresol green (BCG) dye binding methoOrdered By: Jose M Landry on 11-04-2022 Albumin BCG dye [Mass/Vol] 3.3 g/dL 3.5-5.7 [facility] Alkaline phosphatase [Enzyma tic activity/volume] in Serum or PlasmaOrdered By: Jose M Landry on 11-04-2022 ALP [Catalytic activity/Vol] 169 U/L 34-104 [facility] Anisocytosis LM Ql (Bld)Orde red By: Jose M Landry on 11-04-2022 Anisocytosis Ql (Bld) Moderate [facility] Aspartate aminotransferase [ Enzymatic activity/volume] in Serum or PlasmaOrdered By: Jose M Landry on 11-04-2022 AST [Catalytic activity/Vol] 18 U/L 13-39 [facility] Band form neutrophils/100 WB C Manual cnt (Bld)Ordered By: Jose M Landry on 11-04-2022 Band form neutrophils/100 WBC (Bld) 1 % 0-5 [facility] Basophils Auto (Bld) [#/Vol] Ordered By: Jose M Landry on 11-04-2022 Basophils (Bld) [#/Vol] N/A [facility] Basophils/100 WBC Auto (Bld) Ordered By: Jose M Landry on 11-04-2022 Basophils/100 WBC (Bld) N/A [facility] Bilirubin.total [Mass/volume ] in Serum or PlasmaOrdered By: Jose M Landry on 11-04-2022 Bilirubin [Mass/Vol] 0.3 mg/dL 0.3-1.0 [facility] Calcium [Mass/volume] in Ser um or PlasmaOrdered By: Jose M Landry on 11-04-2022 Calcium [Mass/Vol] 8.2 mg/dL 8.6-10.3 [facility] Carbon dioxide, total [Moles /volume] in Serum or PlasmaOrdered By: Jose M Landry on 11-04-2022 CO2 [Moles/Vol] 24.6 mmol/L 21.0-31.0 [facility] Chloride [Moles/volume] in S leti or PlasmaOrdered By: Jose M Landry on 11-04-2022 Chloride [Moles/Vol] 107 mmol/L 98-107 [facility] Creatinine [Mass/volume] in Serum or PlasmaOrdered By: Jose M Landry on 11-04-2022 Creatinine [Mass/Vol] 4.78 mg/dL 0.70-1.[address] [facility] Eosinophils Auto (Bld) [#/Vo l]Ordered By: Jose M Landry on 11-04-2022 Eosinophils (Bld) [#/Vol] N/A [facility] Eosinophils/100 WBC Auto (Bl d)Ordered By: Jose M Landry on 11-04-2022 Eosinophils/100 WBC (Bld) N/A [facility] Eosinophils/100 WBC Manual c nt (Bld)Ordered By: Jose M Landry on 11-04-2022 Eosinophils/100 WBC (Bld) 5 % 1-3 [facility] Erythrocyte distribution wid th Auto (RBC) [Ratio]Ordered By: Jose M Landry on 11-04-2022 Erythrocyte distribution width (RBC) [Ratio] 18.4 % 12.0-14.8 [facility] Giant platelets/100 leukocyt es [Ratio] in Blood by Manual countOrdered By: Jose M Landry on 11-04-2022 Giant platelets/100 WBC Manual cnt (Bld) [Ratio] 16 /100{WBC} [facility] Globulin Calc (S) [Mass/Vol] Ordered By: Jose M Landry on 11-04-2022 Globulin (S) [Mass/Vol] 4.4 g/dL [facility] Glucose [Mass/volume] in Ser um or PlasmaOrdered By: Jose M Landry on 11-04-2022 Glucose [Mass/Vol] 113 mg/dL 70-100 [facility] Hematocrit Auto (Bld) [Volum e fraction]Ordered By: Jose M Landry on 11-04-2022 Hematocrit (Bld) [Volume fraction] 30.6 % 38.8-50.0 [facility] Hemoglobin [Mass/volume] in BloodOrdered By: Jose M Landry on 11-04-2022 Hemoglobin (Bld) [Mass/Vol] 9.9 g/dL 13.0-17.0 [facility] Hypochromia LM Ql (Bld)Order ed By: Jose M Landry on 11-04-2022 Hypochromia Ql (Bld) Moderate [facility] Leukocytes [#/volume] correc lakesha for nucleated erythrocytes in Blood by Automated counOrdered By: Jose M Landry on 11-04-2022 WBC corrected for nucl RBC Auto (Bld) [#/Vol] 10.8 10*3/uL 4.1-10.5 [facility] Lymphocytes Auto (Bld) [#/Vo l]Ordered By: Jose M Landry on 11-04-2022 Lymphocytes (Bld) [#/Vol] N/A [facility] Lymphocytes/100 WBC Auto (Bl d)Ordered By: Jose M Landry on 11-04-2022 Lymphocytes/100 WBC (Bld) N/A [facility] Lymphocytes/100 WBC Manual c nt (Bld)Ordered By: Jose M Landry on 11-04-2022 Lymphocytes/100 WBC (Bld) 31 % 18-42 [facility] MCH Auto (RBC) [Entitic mass ]Ordered By: Jose M Landry on 11-04-2022 MCH (RBC) [Entitic mass] 31.1 pg 27.5-35.2 [facility] MCHC Auto (RBC) [Mass/Vol]Or dered By: Jose M Landry on 11-04-2022 MCHC (RBC) [Mass/Vol] 32.4 g/dL 32.5-35.[address] [facility] MCV Auto (RBC) [Entitic vol] Ordered By: Jose M Landry on 11-04-2022 MCV (RBC) [Entitic vol] 96.1 fL 83.5-101 [facility] Macrocytes LM Ql (Bld)Ordere d By: Jose M Landry on 11-04-2022 Macrocytes Ql (Bld) Slight [facility] Monocytes Auto (Bld) [#/Vol] Ordered By: Jose M Landry on 11-04-2022 Monocytes (Bld) [#/Vol] N/A [facility] Monocytes/100 WBC Auto (Bld) Ordered By: Jose M Landry on 11-04-2022 Monocytes/100 WBC (Bld) N/A [facility] Monocytes/100 WBC Manual cnt (Bld)Ordered By: Jose M Landry on 11-04-2022 Monocytes/100 WBC (Bld) 7 % 2-11 [facility] Neutrophils Auto (Bld) [#/Vo l]Ordered By: Jose M Landry on 11-04-2022 Neutrophils (Bld) [#/Vol] N/A [facility] Neutrophils/100 WBC Auto (Bl d)Ordered By: Jose M Landry on 11-04-2022 Neutrophils/100 WBC (Bld) N/A [facility] No Panel InformationOrdered By: Jose M Landry on 11-04-2022 12.235 mL/Min [facility] N/A [facility] Nucleated erythrocytes [Pres ence] in Blood by Automated countOrdered By: Jose M Landry on 11-04-2022 Nucleated RBC Auto Ql (Bld) N/A [facility] Ovalocyte detectionOrdered B y: Jose M Landry on 11-04-2022 Ovalocytes LM Ql (Bld) Slight [facility] Platelet adequacy [Presence] in Blood by Light microscopyOrdered By: Jose M Landry on 11-04-2022 Platelets LM Ql (Bld) Normal Normal [facility] Platelet mean volume Auto (B ld) [Entitic vol]Ordered By: Jose M Landry on 11-04-2022 Platelet mean volume (Bld) [Entitic vol] 9.7 fL 6.6-10.1 [facility] Platelet morphology finding [Identifier] in BloodOrdered By: Jose M Landry on 11-04-2022 Platelet morphology finding Nom (Bld) N/A [facility] Platelets Auto (Bld) [#/Vol] Ordered By: Jos eM Landry on 11-04-2022 Platelets (Bld) [#/Vol] 272 10*3/uL 150-450 [facility] Poikilocytosis [Presence] in Blood by Light microscopyOrdered By: Jose M Landry on 11-04-2022 Poikilocytosis LM Ql (Bld) Moderate [facility] Polychromasia [Presence] in Blood by Light microscopyOrdered By: Jose M Landry on 11-04-2022 Polychromasia LM Ql (Bld) Slight [facility] Potassium [Moles/volume] in Serum or PlasmaOrdered By: Jose M Landry on 11-04-2022 Potassium [Moles/Vol] 5.0 mmol/L 3.5-5.[address] [facility] Protein [Mass/volume] in Ser um or PlasmaOrdered By: Jose M Landry on 11-04-2022 Protein [Mass/Vol] 7.7 g/dL 6.4-8.9 [facility] RBC Auto (Bld) [#/Vol]Ordere d By: Jose M Landry on 11-04-2022 RBC (Bld) [#/Vol] 3.19 10*6/uL 3.90-5.60 [facility] RBC morphologyOrdered By: Shanti Landry on 11-04-2022 RBC morphology finding Nom (Bld) N/A [facility] Schistocytes [Presence] in B lood by Light microscopyOrdered By: Jose M Landry on 11-04-2022 Schistocytes LM Ql (Bld) Slight [facility] Segmented neutrophils/100 WB C Manual cnt (Bld)Ordered By: Jose M Landry on 11-04-2022 Segmented neutrophils/100 WBC (Bld) 56 % 50-70 [facility] Serum or plasma albumin/glob ulin mass ratioOrdered By: Jose M Landry on 11-04-2022 Albumin/Globulin [Mass ratio] 0.8 {ratio} [facility] Serum or plasma anion gap de terminationOrdered By: Jose M Landry on 11-04-2022 Anion gap [Moles/Vol] 14.4 mmol/L 6.0-15.0 [facility] Sodium [Moles/volume] in Ser um or PlasmaOrdered By: Jose M Landry on 11-04-2022 Sodium [Moles/Vol] 141 mmol/L 136-145 [facility] Target cellsOrdered By: Vivek Landry on 11-04-2022 Target cells LM Ql (Bld) Moderate [facility] Teardrop cell detectionOrder ed By: Jose M Landry on 11-04-2022 Dacrocytes LM Ql (Bld) Slight [facility] Urea nitrogen [Mass/volume] in Serum or PlasmaOrdered By: Jose M Landry on 11-04-2022 Urea nitrogen [Mass/Vol] 32 mg/dL 7 [facility] WBC Auto (Bld) [#/Vol]Ordere d By: Jose M Landry on 11-04-2022 WBC (Bld) [#/Vol] 10.8 10*3/uL 4.1-10.5 [facility] Acanthocytes [Presence] in B lood by Light microscopyOrdered By: Riya Sampson on 10-24-2022 Acanthocytes LM Ql (Bld) Slight [facility] Anisocytosis LM Ql (Bld)Orde red By: Riya Sampson on 10-24-2022 Anisocytosis Ql (Bld) Moderate [facility] Basophils Auto (Bld) [#/Vol] Ordered By: Riya Sampson on 10-24-2022 Basophils (Bld) [#/Vol] N/A [facility] Basophils/100 WBC Auto (Bld) Ordered By: Riya Sampson on 10-24-2022 Basophils/100 WBC (Bld) N/A [facility] Basophils/100 WBC Manual cnt (Bld)Ordered By: Riya Sampson on 10-24-2022 Basophils/100 WBC (Bld) 1 % 0-2 [facility] Calcium [Mass/volume] in Ser um or PlasmaOrdered By: Riya Sampson on 10-24-2022 Calcium [Mass/Vol] 7.4 mg/dL 8.6-10.3 [facility] Carbon dioxide, total [Moles /volume] in Serum or PlasmaOrdered By: Riya Sampson on 10-24-2022 CO2 [Moles/Vol] 23.6 mmol/L 21.0-31.0 [facility] Chloride [Moles/volume] in S leti or PlasmaOrdered By: Riya Sampson on 10-24-2022 Chloride [Moles/Vol] 111 mmol/L 98-107 [facility] Creatinine [Mass/volume] in Serum or PlasmaOrdered By: Riya Sampson on 10-24-2022 Creatinine [Mass/Vol] 2.78 mg/dL 0.70-1.[address] [facility] Eosinophils Auto (Bld) [#/Vo l]Ordered By: Riya Sampson on 10-24-2022 Eosinophils (Bld) [#/Vol] N/A [facility] Eosinophils/100 WBC Auto (Bl d)Ordered By: Riya Sampson on 10-24-2022 Eosinophils/100 WBC (Bld) N/A [facility] Eosinophils/100 WBC Manual c nt (Bld)Ordered By: Riya Sampson on 10-24-2022 Eosinophils/100 WBC (Bld) 4 % 1-3 [facility] Erythrocyte distribution wid th Auto (RBC) [Ratio]Ordered By: Riya Sampson on 10-24-2022 Erythrocyte distribution width (RBC) [Ratio] 18.1 % 12.0-14.8 [facility] Giant platelets/100 leukocyt es [Ratio] in Blood by Manual countOrdered By: Riya Sampson on 10-24-2022 Giant platelets/100 WBC Manual cnt (Bld) [Ratio] 7 /100{WBC} [facility] Glucose Glucometer (BldC) [M ass/Vol]Ordered By: Riya Sampson on 10-24-2022 Glucose [Mass/Vol] 99 mg/dL [facility] Glucose [Mass/volume] in Ser um or PlasmaOrdered By: Riya Sampson on 10-24-2022 Glucose [Mass/Vol] 76 mg/dL 70-100 [facility] Hematocrit Auto (Bld) [Volum e fraction]Ordered By: Riya Sampson on 10-24-2022 Hematocrit (Bld) [Volume fraction] 24.4 % 38.8-50.0 [facility] Hemoglobin [Mass/volume] in BloodOrdered By: Riya Sampson on 10-24-2022 Hemoglobin (Bld) [Mass/Vol] 7.9 g/dL 13.0-17.0 [facility] Hypochromia LM Ql (Bld)Order ed By: Riya Sampson on 10-24-2022 Hypochromia Ql (Bld) Moderate [facility] Leukocytes [#/volume] correc lakesha for nucleated erythrocytes in Blood by Automated counOrdered By: Riya Sampson on 10-24-2022 WBC corrected for nucl RBC Auto (Bld) [#/Vol] 10.3 10*3/uL 4.1-10.5 [facility] Lymphocytes Auto (Bld) [#/Vo l]Ordered By: Riya Sampson on 10-24-2022 Lymphocytes (Bld) [#/Vol] N/A [facility] Lymphocytes/100 WBC Auto (Bl d)Ordered By: Riya Sampson on 10-24-2022 Lymphocytes/100 WBC (Bld) N/A [facility] Lymphocytes/100 WBC Manual c nt (Bld)Ordered By: Riya Sampson on 10-24-2022 Lymphocytes/100 WBC (Bld) 28 % 18-42 [facility] MCH Auto (RBC) [Entitic mass ]Ordered By: Riya Sampson on 10-24-2022 MCH (RBC) [Entitic mass] 32.4 pg 27.5-35.2 [facility] MCHC Auto (RBC) [Mass/Vol]Or dered By: Riya Sampson on 10-24-2022 MCHC (RBC) [Mass/Vol] 32.5 g/dL 32.5-35.[address] [facility] MCV Auto (RBC) [Entitic vol] Ordered By: Riya Sampson on 10-24-2022 MCV (RBC) [Entitic vol] 99.8 fL 83.5-101 [facility] Macrocytes LM Ql (Bld)Ordere d By: Riya Sampson on 10-24-2022 Macrocytes Ql (Bld) Moderate [facility] Microcytes LM Ql (Bld)Ordere d By: Riya Sampson on 10-24-2022 Microcytes Ql (Bld) Slight [facility] Monocytes Auto (Bld) [#/Vol] Ordered By: Riya Sampson on 10-24-2022 Monocytes (Bld) [#/Vol] N/A [facility] Monocytes/100 WBC Auto (Bld) Ordered By: Riya Sampson on 10-24-2022 Monocytes/100 WBC (Bld) N/A [facility] Monocytes/100 WBC Manual cnt (Bld)Ordered By: Riya Sampson on 10-24-2022 Monocytes/100 WBC (Bld) 7 % 2-11 [facility] Myelocytes/100 WBC Manual cn t (Bld)Ordered By: Riya Sampson on 10-24-2022 Myelocytes/100 WBC (Bld) 1 % 0-0 [facility] Neutrophils Auto (Bld) [#/Vo l]Ordered By: Riya Sampson on 10-24-2022 Neutrophils (Bld) [#/Vol] N/A [facility] Neutrophils/100 WBC Auto (Bl d)Ordered By: Riya Sampson on 10-24-2022 Neutrophils/100 WBC (Bld) N/A [facility] No Panel InformationOrdered By: Riya Sampson on 10-24-2022 23.445 mL/Min [facility] 32.10 [facility] Nucleated erythrocytes [Pres ence] in Blood by Automated countOrdered By: Riya Sampson on 10-24-2022 Nucleated RBC Auto Ql (Bld) N/A [facility] Platelet adequacy [Presence] in Blood by Light microscopyOrdered By: Riya Sampson on 10-24-2022 Platelets LM Ql (Bld) Normal Normal [facility] Platelet mean volume Auto (B ld) [Entitic vol]Ordered By: Riya Sampson on 10-24-2022 Platelet mean volume (Bld) [Entitic vol] 10.2 fL 6.6-10.1 [facility] Platelet morphology finding [Identifier] in BloodOrdered By: Riya Sampson on 10-24-2022 Platelet morphology finding Nom (Bld) N/A [facility] Platelets Auto (Bld) [#/Vol] Ordered By: Riya Sampson on 10-24-2022 Platelets (Bld) [#/Vol] 244 10*3/uL 150-450 [facility] Platelets Large [Presence] i n Blood by Light microscopyOrdered By: Riya Sampson on 10-24-2022 Platelets Large LM Ql (Bld) [facility] Poikilocytosis [Presence] in Blood by Light microscopyOrdered By: Riya Sampson on 10-24-2022 Poikilocytosis LM Ql (Bld) [facility] Polychromasia [Presence] in Blood by Light microscopyOrdered By: Riya Sampson on 10-24-2022 Polychromasia LM Ql (Bld) [facility] Potassium [Moles/volume] in Serum or PlasmaOrdered By: Riya Sampson on 10-24-2022 Potassium [Moles/Vol] 4.2 mmol/L 3.5-5.[address] [facility] RBC Auto (Bld) [#/Vol]Ordere d By: Riya Sampson on 10-24-2022 RBC (Bld) [#/Vol] 2.45 10*6/uL 3.90-5.60 [facility] RBC morphologyOrdered By: Angelita Sampson on 10-24-2022 RBC morphology finding Nom (Bld) N/A [facility] Schistocytes [Presence] in B lood by Light microscopyOrdered By: Riya Sampson on 10-24-2022 Schistocytes LM Ql (Bld) [facility] Segmented neutrophils/100 WB C Manual cnt (Bld)Ordered By: Riya Sampson on 10-24-2022 Segmented neutrophils/100 WBC (Bld) 59 % 50-70 [facility] Serum or plasma anion gap de terminationOrdered By: Riya Sampson on 10-24-2022 Anion gap [Moles/Vol] 11.6 mmol/L 6.0-15.0 [facility] Smudge cell detectionOrdered By: Riya Sampson on 10-24-2022 Smudge cells LM Ql (Bld) [facility] Sodium [Moles/volume] in Ser um or PlasmaOrdered By: Riya Sampson on 10-24-2022 Sodium [Moles/Vol] 142 mmol/L 136-145 [facility] Target cellsOrdered By: Bhavin Sampson on 10-24-2022 Target cells LM Ql (Bld) Moderate [facility] Urea nitrogen [Mass/volume] in Serum or PlasmaOrdered By: Riya Sampson on 10-24-2022 Urea nitrogen [Mass/Vol] 30 mg/dL 7 [facility] WBC Auto (Bld) [#/Vol]Ordere d By: Riya Sampson on 10-24-2022 WBC (Bld) [#/Vol] 10.3 10*3/uL 4.1-10.5 [facility] C reactive protein [Mass/vol ume] in Serum or PlasmaOrdered By: Riya Sampson on 10-23-2022 CRP [Mass/Vol] 2.1 mg/dL 0.0-0.5 [facility] Erythrocyte sedimentation ra te by Photometric methodOrdered By: Riya Sampson on 10-23-2022 ESR Photometric method (d) [Velocity] 98 mm/hr 0 [facility] Alanine aminotransferase [En zymatic activity/volume] in Serum or PlasmaOrdered By: Singh Kessler on 10-22-2022 ALT [Catalytic activity/Vol] 6 U/L 7 [facility] Albumin [Mass/volume] in Ser um or Plasma by Bromocresol green (BCG) dye binding methoOrdered By: Singh Kessler on 10-22-2022 Albumin BCG dye [Mass/Vol] 2.9 g/dL 3.5-5.7 [facility] Alkaline phosphatase [Enzyma tic activity/volume] in Serum or PlasmaOrdered By: Singh Kessler on 10-22-2022 ALP [Catalytic activity/Vol] 147 U/L 34-104 [facility] Anisocytosis LM Ql (Bld)Orde red By: Singh Kessler on 10-22-2022 Anisocytosis Ql (Bld) Moderate [facility] Aspartate aminotransferase [ Enzymatic activity/volume] in Serum or PlasmaOrdered By: Singh Kessler on 10-22-2022 AST [Catalytic activity/Vol] 18 U/L 13-39 [facility] Bacterial blood cultureOrder ed By: Singh Kessler on 10-22-2022 Bacteria identified Cx Nom (Bld) NO GROWTH 5 DAYS [facility] Basophils Auto (Bld) [#/Vol] Ordered By: Singh Kessler on 10-22-2022 Basophils (Bld) [#/Vol] N/A [facility] Basophils/100 WBC Auto (Bld) Ordered By: Singh Kessler on 10-22-2022 Basophils/100 WBC (Bld) N/A [facility] Basophils/100 WBC Manual cnt (Bld)Ordered By: Singh Kessler on 10-22-2022 Basophils/100 WBC (Bld) 1 % 0-2 [facility] Bilirubin.total [Mass/volume ] in Serum or PlasmaOrdered By: Singh Kessler on 10-22-2022 Bilirubin [Mass/Vol] 0.2 mg/dL 0.3-1.0 [facility] Calcium [Mass/volume] in Ser um or PlasmaOrdered By: Singh Kessler on 10-22-2022 Calcium [Mass/Vol] 7.5 mg/dL 8.6-10.3 [facility] Carbon dioxide, total [Moles /volume] in Serum or PlasmaOrdered By: Singh Kessler on 10-22-2022 CO2 [Moles/Vol] 23.2 mmol/L 21.0-31.0 [facility] Chloride [Moles/volume] in S leti or PlasmaOrdered By: Singh Kessler on 10-22-2022 Chloride [Moles/Vol] 110 mmol/L 98-107 [facility] Creatinine [Mass/volume] in Serum or PlasmaOrdered By: Singh Kessler on 10-22-2022 Creatinine [Mass/Vol] 2.92 mg/dL 0.70-1.[address] [facility] Eosinophils Auto (Bld) [#/Vo l]Ordered By: Singh Kessler on 10-22-2022 Eosinophils (Bld) [#/Vol] N/A [facility] Eosinophils/100 WBC Auto (Bl d)Ordered By: Singh Kessler on 10-22-2022 Eosinophils/100 WBC (Bld) N/A [facility] Eosinophils/100 WBC Manual c nt (Bld)Ordered By: Singh Kessler on 10-22-2022 Eosinophils/100 WBC (Bld) 8 % 1-3 [facility] Erythrocyte distribution wid th Auto (RBC) [Ratio]Ordered By: Singh Kessler on 10-22-2022 Erythrocyte distribution width (RBC) [Ratio] 18.7 % 12.0-14.8 [facility] Giant platelets/100 leukocyt es [Ratio] in Blood by Manual countOrdered By: Singh Kessler on 10-22-2022 Giant platelets/100 WBC Manual cnt (Bld) [Ratio] 1 /100{WBC} [facility] Globulin Calc (S) [Mass/Vol] Ordered By: Singh Kessler on 10-22-2022 Globulin (S) [Mass/Vol] 4.3 g/dL [facility] Glucose Glucometer (dC) [M ass/Vol]Ordered By: Singh Kessler on 10-22-2022 Glucose [Mass/Vol] 72 mg/dL [facility] Glucose [Mass/volume] in Ser um or PlasmaOrdered By: Singh Kessler on 10-22-2022 Glucose [Mass/Vol] 65 mg/dL 70-100 [facility] Hematocrit Auto (Bld) [Volum e fraction]Ordered By: Singh Kessler on 10-22-2022 Hematocrit (Bld) [Volume fraction] 23.9 % 38.8-50.0 [facility] Hemoglobin [Mass/volume] in BloodOrdered By: Singh Kessler on 10-22-2022 Hemoglobin (Bld) [Mass/Vol] 7.7 g/dL 13.0-17.0 [facility] Hypochromia LM Ql (Bld)Order ed By: Singh Kessler on 10-22-2022 Hypochromia Ql (Bld) Slight [facility] Leukocytes [#/volume] correc lakesha for nucleated erythrocytes in Blood by Automated counOrdered By: Singh Kessler on 10-22-2022 WBC corrected for nucl RBC Auto (Bld) [#/Vol] 11.3 10*3/uL 4.1-10.5 [facility] Lymphocytes Auto (Bld) [#/Vo l]Ordered By: Singh Kessler on 10-22-2022 Lymphocytes (Bld) [#/Vol] N/A [facility] Lymphocytes/100 WBC Auto (Bl d)Ordered By: Singh Kessler on 10-22-2022 Lymphocytes/100 WBC (Bld) N/A [facility] Lymphocytes/100 WBC Manual c nt (Bld)Ordered By: Singh Kessler on 10-22-2022 Lymphocytes/100 WBC (Bld) 34 % 18-42 [facility] MCH Auto (RBC) [Entitic mass ]Ordered By: Singh Kessler on 10-22-2022 MCH (RBC) [Entitic mass] 30.8 pg 27.5-35.2 [facility] MCHC Auto (RBC) [Mass/Vol]Or dered By: Singh Kessler on 10-22-2022 MCHC (RBC) [Mass/Vol] 32.3 g/dL 32.5-35.6 [facility] MCV Auto (RBC) [Entitic vol] Ordered By: Singh Kessler on 10-22-2022 MCV (RBC) [Entitic vol] 95.5 fL 83.5-101 [facility] Monocytes Auto (Bld) [#/Vol] Ordered By: Singh Kessler on 10-22-2022 Monocytes (Bld) [#/Vol] N/A [facility] Monocytes/100 WBC Auto (Bld) Ordered By: Singh Kessler on 10-22-2022 Monocytes/100 WBC (Bld) N/A [facility] Monocytes/100 WBC Manual cnt (Bld)Ordered By: Singh Kessler on 10-22-2022 Monocytes/100 WBC (Bld) 4 % 2-11 [facility] Neutrophils Auto (Bld) [#/Vo l]Ordered By: Singh Kessler on 10-22-2022 Neutrophils (Bld) [#/Vol] N/A [facility] Neutrophils/100 WBC Auto (Bl d)Ordered By: Singh Kessler on 10-22-2022 Neutrophils/100 WBC (Bld) N/A [facility] No Panel InformationOrdered By: Singh Kessler on 10-22-2022 22.102 mL/Min [facility] 30.04 [facility] Nucleated erythrocytes [Pres ence] in Blood by Automated countOrdered By: Singh Kessler on 10-22-2022 Nucleated RBC Auto Ql (Bld) N/A [facility] Platelet adequacy [Presence] in Blood by Light microscopyOrdered By: Singh Kessler on 10-22-2022 Platelets LM Ql (Bld) Normal Normal [facility] Platelet mean volume Auto (B ld) [Entitic vol]Ordered By: Singh Kessler on 10-22-2022 Platelet mean volume (Bld) [Entitic vol] 10.0 fL 6.6-10.1 [facility] Platelet morphology finding [Identifier] in BloodOrdered By: Singh Kessler on 10-22-2022 Platelet morphology finding Nom (Bld) N/A [facility] Platelets Auto (Bld) [#/Vol] Ordered By: Singh Kessler on 10-22-2022 Platelets (Bld) [#/Vol] 246 10*3/uL 150-450 [facility] Poikilocytosis [Presence] in Blood by Light microscopyOrdered By: Singh Kessler on 10-22-2022 Poikilocytosis LM Ql (Bld) Slight [facility] Polychromasia [Presence] in Blood by Light microscopyOrdered By: Singh Kessler on 10-22-2022 Polychromasia LM Ql (Bld) Slight [facility] Potassium [Moles/volume] in Serum or PlasmaOrdered By: Singh Kessler on 10-22-2022 Potassium [Moles/Vol] 3.9 mmol/L 3.5-5.[address] [facility] Protein [Mass/volume] in Ser um or PlasmaOrdered By: Singh Kessler on 10-22-2022 Protein [Mass/Vol] 7.2 g/dL 6.4-8.9 [facility] RBC Auto (Bld) [#/Vol]Ordere d By: Singh Kessler on 10-22-2022 RBC (Bld) [#/Vol] 2.50 10*6/uL 3.90-5.60 [facility] RBC morphologyOrdered By: Ha Kessler on 10-22-2022 RBC morphology finding Nom (Bld) N/A [facility] Segmented neutrophils/100 WB C Manual cnt (Bld)Ordered By: Singh Kessler on 10-22-2022 Segmented neutrophils/100 WBC (Bld) 53 % 50-70 [facility] Serum or plasma albumin/glob ulin mass ratioOrdered By: Singh Kessler on 10-22-2022 Albumin/Globulin [Mass ratio] 0.7 {ratio} [facility] Serum or plasma anion gap de terminationOrdered By: Singh Kessler on 10-22-2022 Anion gap [Moles/Vol] 12.7 mmol/L 6.0-15.0 [facility] Sodium [Moles/volume] in Ser um or PlasmaOrdered By: Singh Kessler on 10-22-2022 Sodium [Moles/Vol] 142 mmol/L 136-145 [facility] Target cellsOrdered By: Saurav Kessler on 10-22-2022 Target cells LM Ql (Bld) Slight [facility] Urea nitrogen [Mass/volume] in Serum or PlasmaOrdered By: Singh Kessler on 10-22-2022 Urea nitrogen [Mass/Vol] 26 mg/dL 7-25 [facility] WBC Auto (Bld) [#/Vol]Ordere d By: Singh Kesselr on 10-22-2022 WBC (Bld) [#/Vol] 11.3 10*3/uL 4.1-10.5 [facility] Alanine aminotransferase [En zymatic activity/volume] in Serum or PlasmaOrdered By: Singh Kessler on 10-21-2022 ALT [Catalytic activity/Vol] 7 U/L 7-52 [facility] Albumin [Mass/volume] in Ser um or Plasma by Bromocresol green (BCG) dye binding methoOrdered By: Singh Kessler on 10-21-2022 Albumin BCG dye [Mass/Vol] 2.9 g/dL 3.5-5.7 [facility] Alkaline phosphatase [Enzyma tic activity/volume] in Serum or PlasmaOrdered By: Singh Kessler on 10-21-2022 ALP [Catalytic activity/Vol] 152 U/L 34-104 [facility] Aspartate aminotransferase [ Enzymatic activity/volume] in Serum or PlasmaOrdered By: Singh Kessler on 10-21-2022 AST [Catalytic activity/Vol] 18 U/L 13-39 [facility] Bacterial blood cultureOrder ed By: Singh Kessler on 10-21-2022 Bacteria identified Cx Nom (Bld) NO GROWTH 5 DAYS [facility] Basophils Auto (Bld) [#/Vol] Ordered By: Singh Kessler on 10-21-2022 Basophils (Bld) [#/Vol] 0.1 10*3/uL 0.0-0.2 [facility] Basophils/100 WBC Auto (Bld) Ordered By: Singh Kessler on 10-21-2022 Basophils/100 WBC (Bld) 1.0 % . [facility] Bilirubin.total [Mass/volume ] in Serum or PlasmaOrdered By: Singh Kessler on 10-21-2022 Bilirubin [Mass/Vol] 0.3 mg/dL 0.3-1.0 [facility] Calcium [Mass/volume] in Ser um or PlasmaOrdered By: Singh Kessler on 10-21-2022 Calcium [Mass/Vol] 7.6 mg/dL 8.6-10.3 [facility] Carbon dioxide, total [Moles /volume] in Serum or PlasmaOrdered By: Singh Kessler on 10-21-2022 CO2 [Moles/Vol] 25.1 mmol/L 21.0-31.0 [facility] Chloride [Moles/volume] in S leti or PlasmaOrdered By: Singh Kessler on 10-21-2022 Chloride [Moles/Vol] 109 mmol/L 98-107 [facility] Creatinine [Mass/volume] in Serum or PlasmaOrdered By: Singh Kessler on 10-21-2022 Creatinine [Mass/Vol] 2.84 mg/dL 0.70-1.[address] [facility] Eosinophils Auto (Bld) [#/Vo l]Ordered By: Singh Kessler on 10-21-2022 Eosinophils (Bld) [#/Vol] 0.5 10*3/uL 0.0-0.45 [facility] Eosinophils/100 WBC Auto (Bl d)Ordered By: Singh Kessler on 10-21-2022 Eosinophils/100 WBC (Bld) 3.8 % . [facility] Erythrocyte distribution wid th Auto (RBC) [Ratio]Ordered By: Singh Kessler on 10-21-2022 Erythrocyte distribution width (RBC) [Ratio] 18.3 % 12.0-14.8 [facility] Globulin Calc (S) [Mass/Vol] Ordered By: Singh Kessler on 10-21-2022 Globulin (S) [Mass/Vol] 4.3 g/dL [facility] Glucose [Mass/volume] in Ser um or PlasmaOrdered By: Singh Kessler on 10-21-2022 Glucose [Mass/Vol] 136 mg/dL 70-100 [facility] Hematocrit Auto (Bld) [Volum e fraction]Ordered By: Singh Kessler on 10-21-2022 Hematocrit (Bld) [Volume fraction] 24.5 % 38.8-50.0 [facility] Hemoglobin [Mass/volume] in BloodOrdered By: Singh Kessler on 10-21-2022 Hemoglobin (Bld) [Mass/Vol] 7.9 g/dL 13.0-17.0 [facility] Leukocytes [#/volume] correc lakesha for nucleated erythrocytes in Blood by Automated counOrdered By: Singh Kessler on 10-21-2022 WBC corrected for nucl RBC Auto (Bld) [#/Vol] 13.4 10*3/uL 4.1-10.5 [facility] Lymphocytes Auto (Bld) [#/Vo l]Ordered By: Singh Kessler on 10-21-2022 Lymphocytes (Bld) [#/Vol] 5.2 10*3/uL 1.00-4.8 [facility] Lymphocytes/100 WBC Auto (Bl d)Ordered By: Singh Kessler on 10-21-2022 Lymphocytes/100 WBC (Bld) 38.9 % . [facility] MCH Auto (RBC) [Entitic mass ]Ordered By: Singh Kessler on 10-21-2022 MCH (RBC) [Entitic mass] 30.5 pg 27.5-35.2 [facility] MCHC Auto (RBC) [Mass/Vol]Or dered By: Singh Kessler on 10-21-2022 MCHC (RBC) [Mass/Vol] 32.3 g/dL 32.5-35.6 [facility] MCV Auto (RBC) [Entitic vol] Ordered By: Singh Kessler on 10-21-2022 MCV (RBC) [Entitic vol] 94.6 fL 83.5-101 [facility] Monocytes Auto (Bld) [#/Vol] Ordered By: Singh Kessler on 10-21-2022 Monocytes (Bld) [#/Vol] 1.3 10*3/uL 0.0-0.8 [facility] Monocytes/100 WBC Auto (Bld) Ordered By: Singh Kessler on 10-21-2022 Monocytes/100 WBC (Bld) 9.9 % . [facility] Neutrophils Auto (Bld) [#/Vo l]Ordered By: Singh Kessler on 10-21-2022 Neutrophils (Bld) [#/Vol] 6.2 10*3/uL 1.8-7.7 [facility] Neutrophils/100 WBC Auto (Bl d)Ordered By: Singh Kessler on 10-21-2022 Neutrophils/100 WBC (Bld) 46.4 % . [facility] No Panel InformationOrdered By: Singh Kessler on 10-21-2022 22.852 mL/Min [facility] 30.88 [facility] Nucleated erythrocytes [Pres ence] in Blood by Automated countOrdered By: Singh Kessler on 10-21-2022 Nucleated RBC Auto Ql (Bld) 0.1 /100{WBC} 0-0.5 [facility] Platelet mean volume Auto (B ld) [Entitic vol]Ordered By: Singh Kessler on 10-21-2022 Platelet mean volume (Bld) [Entitic vol] 9.2 fL 6.6-10.1 [facility] Platelets Auto (Bld) [#/Vol] Ordered By: Singh Kessler on 10-21-2022 Platelets (Bld) [#/Vol] 256 10*3/uL 150-450 [facility] Potassium [Moles/volume] in Serum or PlasmaOrdered By: Singh Kessler on 10-21-2022 Potassium [Moles/Vol] 4.2 mmol/L 3.5-5.[address] [facility] Protein [Mass/volume] in Ser um or PlasmaOrdered By: Singh Kessler on 10-21-2022 Protein [Mass/Vol] 7.2 g/dL 6.4-8.9 [facility] RBC Auto (Bld) [#/Vol]Ordere d By: Singh Kessler on 10-21-2022 RBC (Bld) [#/Vol] 2.59 10*6/uL 3.90-5.60 [facility] Serum or plasma albumin/glob ulin mass ratioOrdered By: Singh Kessler on 10-21-2022 Albumin/Globulin [Mass ratio] 0.7 {ratio} [facility] Serum or plasma anion gap de terminationOrdered By: Singh Kessler on 10-21-2022 Anion gap [Moles/Vol] 11.1 mmol/L 6.0-15.0 [facility] Sodium [Moles/volume] in Ser um or PlasmaOrdered By: Singh Kessler on 10-21-2022 Sodium [Moles/Vol] 141 mmol/L 136-145 [facility] Urea nitrogen [Mass/volume] in Serum or PlasmaOrdered By: Singh Kessler on 10-21-2022 Urea nitrogen [Mass/Vol] 29 mg/dL 7-25 [facility] WBC Auto (Bld) [#/Vol]Ordere d By: Singh Kessler on 10-21-2022 WBC (Bld) [#/Vol] 13.4 10*3/uL 4.1-10.5 [facility] Basophils Auto (Bld) [#/Vol] Ordered By: Riya Pitt on 10-16-2022 Basophils (Bld) [#/Vol] 0.1 10*3/uL 0.0-0.2 [facility] Basophils/100 WBC Auto (Bld) Ordered By: Riya Pitt on 10-16-2022 Basophils/100 WBC (Bld) 0.9 % . [facility] Creatinine [Mass/volume] in Serum or PlasmaOrdered By: Riya Pitt on 10-16-2022 Creatinine [Mass/Vol] 3.07 mg/dL 0.70-1.[address] [facility] Eosinophils Auto (Bld) [#/Vo l]Ordered By: Riya Pitt on 10-16-2022 Eosinophils (Bld) [#/Vol] 0.6 10*3/uL 0.0-0.45 [facility] Eosinophils/100 WBC Auto (Bl d)Ordered By: Riya Pitt on 10-16-2022 Eosinophils/100 WBC (Bld) 5.1 % . [facility] Erythrocyte distribution wid th Auto (RBC) [Ratio]Ordered By: Riya Pitt on 10-16-2022 Erythrocyte distribution width (RBC) [Ratio] 17.3 % 12.0-14.8 [facility] Erythrocyte sedimentation ra te by Photometric methodOrdered By: Riya Pitt on 10-16-2022 ESR Photometric method (Bld) [Velocity] 80 mm/hr 0-19 [facility] Hematocrit Auto (Bld) [Volum e fraction]Ordered By: Riya Pitt on 10-16-2022 Hematocrit (Bld) [Volume fraction] 23.9 % 38.8-50.0 [facility] Hemoglobin [Mass/volume] in BloodOrdered By: Riya Pitt on 10-16-2022 Hemoglobin (Bld) [Mass/Vol] 7.6 g/dL 13.0-17.0 [facility] Leukocytes [#/volume] correc lakesha for nucleated erythrocytes in Blood by Automated counOrdered By: Riya Pitt on 10-16-2022 WBC corrected for nucl RBC Auto (Bld) [#/Vol] 11.7 10*3/uL 4.1-10.5 [facility] Lymphocytes Auto (Bld) [#/Vo l]Ordered By: Riya Pitt on 10-16-2022 Lymphocytes (Bld) [#/Vol] 4.9 10*3/uL 1.00-4.8 [facility] Lymphocytes/100 WBC Auto (Bl d)Ordered By: Riya Pitt on 10-16-2022 Lymphocytes/100 WBC (Bld) 41.3 % . [facility] MCH Auto (RBC) [Entitic mass ]Ordered By: Riya Pitt on 10-16-2022 MCH (RBC) [Entitic mass] 30.4 pg 27.5-35.2 [facility] MCHC Auto (RBC) [Mass/Vol]Or dered By: Riya Pitt on 10-16-2022 MCHC (RBC) [Mass/Vol] 31.8 g/dL 32.5-35.[address] [facility] MCV Auto (RBC) [Entitic vol] Ordered By: Riya Pitt on 10-16-2022 MCV (RBC) [Entitic vol] 95.7 fL 83.5-101 [facility] Monocytes Auto (Bld) [#/Vol] Ordered By: Riya Pitt on 10-16-2022 Monocytes (Bld) [#/Vol] 0.7 10*3/uL 0.0-0.8 [facility] Monocytes/100 WBC Auto (Bld) Ordered By: Riya Pitt on 10-16-2022 Monocytes/100 WBC (Bld) 6.2 % . [facility] Neutrophils Auto (Bld) [#/Vo l]Ordered By: Riya Pitt on 10-16-2022 Neutrophils (Bld) [#/Vol] 5.5 10*3/uL 1.8-7.7 [facility] Neutrophils/100 WBC Auto (Bl d)Ordered By: Riya Pitt on 10-16-2022 Neutrophils/100 WBC (Bld) 46.5 % . [facility] No Panel InformationOrdered By: Riya Pitt on 10-16-2022 20.813 mL/Min [facility] N/A [facility] Nucleated erythrocytes [Pres ence] in Blood by Automated countOrdered By: Riya Pitt on 10-16-2022 Nucleated RBC Auto Ql (Bld) 0.9 /100{WBC} 0-0.5 [facility] Platelet mean volume Auto (B ld) [Entitic vol]Ordered By: Riya Pitt on 10-16-2022 Platelet mean volume (Bld) [Entitic vol] 9.9 fL 6.6-10.1 [facility] Platelets Auto (Bld) [#/Vol] Ordered By: Riya Pitt on 10-16-2022 Platelets (Bld) [#/Vol] 254 10*3/uL 150-450 [facility] RBC Auto (Bld) [#/Vol]Ordere d By: Riya Pitt on 10-16-2022 RBC (Bld) [#/Vol] 2.50 10*6/uL 3.90-5.60 [facility] WBC Auto (Bld) [#/Vol]Ordere d By: Riya Pitt on 10-16-2022 WBC (Bld) [#/Vol] 11.7 10*3/uL 4.1-10.5 [facility] Alanine aminotransferase [En zymatic activity/volume] in Serum or PlasmaOrdered By: Pedro Drake on 10-13-2022 ALT [Catalytic activity/Vol] 12 U/L 7-52 [facility] Albumin [Mass/volume] in Ser um or Plasma by Bromocresol green (BCG) dye binding methoOrdered By: Pedro Drake on 10-13-2022 Albumin BCG dye [Mass/Vol] 3.1 g/dL 3.5-5.7 [facility] Alkaline phosphatase [Enzyma tic activity/volume] in Serum or PlasmaOrdered By: Pedro Drake on 10-13-2022 ALP [Catalytic activity/Vol] 156 U/L 34-104 [facility] Anisocytosis LM Ql (Bld)Orde red By: Pedro Drake on 10-13-2022 Anisocytosis Ql (Bld) Slight [facility] Aspartate aminotransferase [ Enzymatic activity/volume] in Serum or PlasmaOrdered By: Pedro Drake on 10-13-2022 AST [Catalytic activity/Vol] 22 U/L 13-39 [facility] Bacteria identified Aer cx N om (Unsp spec)Ordered By: Pedro Drake on 10-13-2022 Aerobic culture Pseudomonas aerugino sa (MDRO) [facility] Aerobic culture Marichuy orthopsilosis [facility] Bacteria identified Cx Nom ( Bld)Ordered By: Pedro Drake on 10-13-2022 Bacterial blood culture Stenotrophomonas maltophilia [facility] Bacterial blood culture Paolaeobacterium gleum [facility] Bacterial blood cultureOrder ed By: Pedro Drake on 10-13-2022 Bacteria identified Cx Nom (Bld) NO GROWTH 5 DAYS [facility] Bacterial susceptibility hansen el TANNA (Isol)on 10-13-2022 Microorganism identified Cx Nom (Unsp spec) [id number] Abnormal [facility] Comment on above: Order Comment: Speci men Type: MICROBIAL ISOLATE Ordering Facility: [facility] Address: [address] [place] [id number] Result Comment: Marya colten kasandrawandy Identification performed by client. Performed By: #### 5 0545-3, VZMIC #### [facility] CLIA [id number] [address] [place], [place] [address] [place] [address] [place] Basophils Auto (Bld) [#/Vol] Ordered By: Pedro Drake on 10-13-2022 Basophils (Bld) [#/Vol] N/A [facility] Basophils/100 WBC Auto (Bld) Ordered By: Pedro Drake on 10-13-2022 Basophils/100 WBC (Bld) N/A [facility] Bilirubin.total [Mass/volume ] in Serum or PlasmaOrdered By: Pedro Drake on 10-13-2022 Bilirubin [Mass/Vol] 0.2 mg/dL 0.3-1.0 [facility] Calcium [Mass/volume] in Ser um or PlasmaOrdered By: Pedro Drake on 10-13-2022 Calcium [Mass/Vol] 7.8 mg/dL 8.6-10.3 [facility] Carbon dioxide, total [Moles /volume] in Serum or PlasmaOrdered By: Pedro Drake on 10-13-2022 CO2 [Moles/Vol] 25.9 mmol/L 21.0-31.0 [facility] Chloride [Moles/volume] in S leti or PlasmaOrdered By: Pedro Drake on 10-13-2022 Chloride [Moles/Vol] 106 mmol/L 98-107 [facility] Creatinine [Mass/volume] in Serum or PlasmaOrdered By: Pedro Drake on 10-13-2022 Creatinine [Mass/Vol] 3.30 mg/dL 0.70-1.[address] [facility] Eosinophils Auto (Bld) [#/Vo l]Ordered By: Pedro Drake on 10-13-2022 Eosinophils (Bld) [#/Vol] N/A [facility] Eosinophils/100 WBC Auto (Bl d)Ordered By: Pedro Drake on 10-13-2022 Eosinophils/100 WBC (Bld) N/A [facility] Eosinophils/100 WBC Manual c nt (Bld)Ordered By: Pedro Drake on 10-13-2022 Eosinophils/100 WBC (Bld) 6 % 1-3 [facility] Erythrocyte distribution wid th Auto (RBC) [Ratio]Ordered By: Pedro Drake on 10-13-2022 Erythrocyte distribution width (RBC) [Ratio] 16.7 % 12.0-14.8 [facility] Globulin Calc (S) [Mass/Vol] Ordered By: Pedro Drake on 10-13-2022 Globulin (S) [Mass/Vol] 4.2 g/dL [facility] Glucose Glucometer (BldC) [M ass/Vol]Ordered By: Pedro Drake on 10-13-2022 Glucose [Mass/Vol] 137 mg/dL [facility] Glucose [Mass/volume] in Ser um or PlasmaOrdered By: Pedro Drake on 10-13-2022 Glucose [Mass/Vol] 46 mg/dL 70-100 [facility] Hematocrit Auto (Bld) [Volum e fraction]Ordered By: Pedro Drake on 10-13-2022 Hematocrit (Bld) [Volume fraction] 23.5 % 38.8-50.0 [facility] Hemoglobin [Mass/volume] in BloodOrdered By: Pedro Drake on 10-13-2022 Hemoglobin (Bld) [Mass/Vol] 7.6 g/dL 13.0-17.0 [facility] Hypochromia LM Ql (Bld)Order ed By: Pedro Drake on 10-13-2022 Hypochromia Ql (Bld) Moderate [facility] Leukocytes [#/volume] correc lakesha for nucleated erythrocytes in Blood by Automated counOrdered By: Pedro Drake on 10-13-2022 WBC corrected for nucl RBC Auto (Bld) [#/Vol] 13.8 10*3/uL 4.1-10.5 [facility] Lymphocytes Auto (Bld) [#/Vo l]Ordered By: Pedro Drake on 10-13-2022 Lymphocytes (Bld) [#/Vol] N/A [facility] Lymphocytes/100 WBC Auto (Bl d)Ordered By: Pedro Drake on 10-13-2022 Lymphocytes/100 WBC (Bld) N/A [facility] Lymphocytes/100 WBC Manual c nt (Bld)Ordered By: Pedro Drake on 10-13-2022 Lymphocytes/100 WBC (Bld) 25 % 18-42 [facility] MCH Auto (RBC) [Entitic mass ]Ordered By: Pedro Drake on 10-13-2022 MCH (RBC) [Entitic mass] 30.3 pg 27.5-35.2 [facility] MCHC Auto (RBC) [Mass/Vol]Or dered By: Pedro Drake on 10-13-2022 MCHC (RBC) [Mass/Vol] 32.4 g/dL 32.5-35.6 [facility] MCV Auto (RBC) [Entitic vol] Ordered By: Pedro Drake on 10-13-2022 MCV (RBC) [Entitic vol] 93.4 fL 83.5-101 [facility] MINIMUM INHIBITORY CONCENTRA TION (VIZION)on 10-13-2022 Amikacin [Susc] >32 Resistant Susceptible <=16 , Intermediate >16 , Resistant >32 [facility] Comment on above: Order Comment: Order ing Facility: [facility] Address: [address] [place], [place] [address] Performed By: #### 5 0545-3, VZMIC #### [facility] CLIA [id number] [address] [place] [address] [place] Cefepime [Susc] <=2 Susceptible Susceptible <=8 , Intermediate >8 , Resistant >16 [facility] Comment on above: Order Comment: Order ing Facility: [facility] Address: [address] [place], [place] [address] Performed By: #### 5 0545-3, VZMIC #### [facility] CLIA [id number] [address] [place] [address] [place] Ciprofloxacin [Susc] 0.50 Susceptible Suscept ible <=1 , Intermediate >1 , Resistant >2 [facility] Comment on above: Order Comment: Order ing Facility: [facility] Address: [address] [place], [place] [address] Performed By: #### 5 0545-3, VZMIC #### [facility] CLIA [id number] [address] [place] [address] [place] Gentamicin [Susc] >8 Resistant Susceptibl e <=4 , Intermediate >4 , Resistant >8 [facility] Comment on above: Order Comment: Order ing Facility: [facility] Address: [address] [place], [place] [address] Performed By: #### 5 0545-3, VZMIC #### [facility] CLIA [id number] [place] Meropenem [Susc] >8 Resistant Susceptible <=4 , Intermediate >4 , Resistant >8 [facility] Comment on above: Order Comment: Order ing Facility: [facility] Address: [address] [place] [address] Performed By: #### 5 0545-3, VZMIC #### [facility] CLIA [id number] [address] [place] [address] [place] Piperacillin+Sulbactam TANNA [Susc] 32 Intermediate Susceptible <=16 , Intermediate >16 , Resistant >64 [facility] Comment on above: Order Comment: Order ing Facility: [facility] Address: [address] [place] [address] Performed By: #### 5 0545-3, VZMIC #### [facility] CLIA [id number] [address] [place] [address] [place] Tobramycin [Susc] >8 Resistant Susceptibl e <=4 , Intermediate >4 , Resistant >8 [facility] Comment on above: Order Comment: Order ing Facility: [facility] Address: [address] [place] [address] Performed By: #### 5 0545-3, VZMIC #### [facility] CLIA [id number] [address] [place] [address] [place] Trimethoprim+Sulfametho xazole [Susc] <=1 Susceptible Susceptible <=2 , Resistant >2 [facility] Comment on above: Order Comment: Order ing Facility: [facility] Address: [address] [place] [address] Performed By: #### 5 0545-3, VZMIC #### [facility] CLIA [id number] [address] [place] [id number] [place] Monocyte distribution width [Entitic volume] in Blood by AutomatedOrdered By: Pedro Drake on 10-13-2022 Monocyte distribution width Auto (Bld) [Entitic vol] 21.56 % 0.00-20.00 [facility] Monocytes Auto (Bld) [#/Vol] Ordered By: Pedro Drake on 10-13-2022 Monocytes (Bld) [#/Vol] N/A [facility] Monocytes/100 WBC Auto (Bld) Ordered By: Pedro Drake on 10-13-2022 Monocytes/100 WBC (Bld) N/A [facility] Monocytes/100 WBC Manual cnt (Bld)Ordered By: Pedro Drake on 10-13-2022 Monocytes/100 WBC (Bld) 6 % 2-11 [facility] Neutrophils Auto (Bld) [#/Vo l]Ordered By: Pedro Drake on 10-13-2022 Neutrophils (Bld) [#/Vol] N/A [facility] Neutrophils/100 WBC Auto (Bl d)Ordered By: Pedro Drake on 10-13-2022 Neutrophils/100 WBC (Bld) N/A [facility] No Panel InformationOrdered By: Pedro Drake on 10-13-2022 19.085 mL/Min [facility] 26.32 [facility] Nucleated erythrocytes [Pres ence] in Blood by Automated countOrdered By: Pedro Drake on 10-13-2022 Nucleated RBC Auto Ql (Bld) N/A [facility] Platelet adequacy [Presence] in Blood by Light microscopyOrdered By: Pedro Drake on 10-13-2022 Platelets LM Ql (Bld) Normal Normal [facility] Platelet mean volume Auto (B ld) [Entitic vol]Ordered By: Pedro Drake on 10-13-2022 Platelet mean volume (Bld) [Entitic vol] 9.9 fL 6.6-10.1 [facility] Platelet morphology finding [Identifier] in BloodOrdered By: Pedro Drake on 10-13-2022 Platelet morphology finding Nom (Bld) N/A [facility] Platelets Auto (Bld) [#/Vol] Ordered By: Pedro Drake on 10-13-2022 Platelets (Bld) [#/Vol] 232 10*3/uL 150-450 [facility] Platelets Large [Presence] i n Blood by Light microscopyOrdered By: Pedro Drake on 10-13-2022 Platelets Large LM Ql (Bld) Slight [facility] Poikilocytosis [Presence] in Blood by Light microscopyOrdered By: Pedro Drake on 10-13-2022 Poikilocytosis LM Ql (Bld) Slight [facility] Polychromasia [Presence] in Blood by Light microscopyOrdered By: Pedro Drake on 10-13-2022 Polychromasia LM Ql (Bld) Moderate [facility] Potassium [Moles/volume] in Serum or PlasmaOrdered By: Pedro Drake on 10-13-2022 Potassium [Moles/Vol] 4.2 mmol/L 3.5-5.[address] [facility] Protein [Mass/volume] in Ser um or PlasmaOrdered By: Pedro Drake on 10-13-2022 Protein [Mass/Vol] 7.3 g/dL 6.4-8.9 [facility] RBC Auto (Bld) [#/Vol]Ordere d By: Pedro Drake on 10-13-2022 RBC (Bld) [#/Vol] 2.52 10*6/uL 3.90-5.60 [facility] RBC morphologyOrdered By: Angela Drake on 10-13-2022 RBC morphology finding Nom (Bld) N/A [facility] Schistocytes [Presence] in B lood by Light microscopyOrdered By: Pedro Drake on 10-13-2022 Schistocytes LM Ql (Bld) Slight [facility] Segmented neutrophils/100 WB C Manual cnt (Bld)Ordered By: Pedro Drake on 10-13-2022 Segmented neutrophils/100 WBC (Bld) 64 % 50-70 [facility] Serum or plasma albumin/glob ulin mass ratioOrdered By: Pedro Drake on 10-13-2022 Albumin/Globulin [Mass ratio] 0.7 {ratio} [facility] Serum or plasma anion gap de terminationOrdered By: Pedro Drake on 10-13-2022 Anion gap [Moles/Vol] 11.3 mmol/L 6.0-15.0 [facility] Sodium [Moles/volume] in Ser um or PlasmaOrdered By: Pedro Drake on 10-13-2022 Sodium [Moles/Vol] 139 mmol/L 136-145 [facility] Target cellsOrdered By: Pedro Drake on 10-13-2022 Target cells LM Ql (Bld) Moderate [facility] Urea nitrogen [Mass/volume] in Serum or PlasmaOrdered By: Pedro Drake on 10-13-2022 Urea nitrogen [Mass/Vol] 45 mg/dL 7-25 [facility] WBC Auto (Bld) [#/Vol]Ordere d By: Pedro Drake on 10-13-2022 WBC (Bld) [#/Vol] 13.8 10*3/uL 4.1-10.5 [facility] Basophils Auto (Bld) [#/Vol] Ordered By: Riya Pitt on 10-11-2022 Basophils (Bld) [#/Vol] 0.1 10*3/uL 0.0-0.2 [facility] Basophils/100 WBC Auto (Bld) Ordered By: Riya Pitt on 10-11-2022 Basophils/100 WBC (Bld) 1.1 % . [facility] Eosinophils Auto (Bld) [#/Vo l]Ordered By: Riya Pitt on 10-11-2022 Eosinophils (Bld) [#/Vol] 0.5 10*3/uL 0.0-0.45 [facility] Eosinophils/100 WBC Auto (Bl d)Ordered By: Riya Pitt on 10-11-2022 Eosinophils/100 WBC (Bld) 4.3 % . [facility] Erythrocyte distribution wid th Auto (RBC) [Ratio]Ordered By: Riya Pitt on 10-11-2022 Erythrocyte distribution width (RBC) [Ratio] 16.7 % 12.0-14.8 [facility] Erythrocyte sedimentation ra te by Photometric methodOrdered By: Riya Pitt on 10-11-2022 ESR Photometric method (Bld) [Velocity] 100 mm/hr 0-19 [facility] Hematocrit Auto (Bld) [Volum e fraction]Ordered By: Riya Pitt on 10-11-2022 Hematocrit (Bld) [Volume fraction] 23.7 % 38.8-50.0 [facility] Hemoglobin [Mass/volume] in BloodOrdered By: Riya Pitt on 10-11-2022 Hemoglobin (Bld) [Mass/Vol] 7.6 g/dL 13.0-17.0 [facility] Leukocytes [#/volume] correc lakesha for nucleated erythrocytes in Blood by Automated counOrdered By: Riya Pitt on 10-11-2022 WBC corrected for nucl RBC Auto (Bld) [#/Vol] 11.3 10*3/uL 4.1-10.5 [facility] Lymphocytes Auto (Bld) [#/Vo l]Ordered By: Riya Pitt on 10-11-2022 Lymphocytes (Bld) [#/Vol] 4.6 10*3/uL 1.00-4.8 [facility] Lymphocytes/100 WBC Auto (Bl d)Ordered By: Riya Pitt on 10-11-2022 Lymphocytes/100 WBC (Bld) 41.1 % . [facility] MCH Auto (RBC) [Entitic mass ]Ordered By: Riya Pitt on 10-11-2022 MCH (RBC) [Entitic mass] 30.2 pg 27.5-35.2 [facility] MCHC Auto (RBC) [Mass/Vol]Or dered By: Riya Pitt on 10-11-2022 MCHC (RBC) [Mass/Vol] 32.2 g/dL 32.5-35.[address] [facility] MCV Auto (RBC) [Entitic vol] Ordered By: Riya Pitt on 10-11-2022 MCV (RBC) [Entitic vol] 93.9 fL 83.5-101 [facility] Monocytes Auto (Bld) [#/Vol] Ordered By: Riya Pitt on 10-11-2022 Monocytes (Bld) [#/Vol] 0.5 10*3/uL 0.0-0.8 [facility] Monocytes/100 WBC Auto (Bld) Ordered By: Riya Pitt on 10-11-2022 Monocytes/100 WBC (Bld) 4.3 % . [facility] Neutrophils Auto (Bld) [#/Vo l]Ordered By: Riya Pitt on 10-11-2022 Neutrophils (Bld) [#/Vol] 5.6 10*3/uL 1.8-7.7 [facility] Neutrophils/100 WBC Auto (Bl d)Ordered By: Riya Pitt on 10-11-2022 Neutrophils/100 WBC (Bld) 49.2 % . [facility] Nucleated erythrocytes [Pres ence] in Blood by Automated countOrdered By: Riya Pitt on 10-11-2022 Nucleated RBC Auto Ql (Bld) 0.3 /100{WBC} 0-0.5 [facility] Platelet mean volume Auto (B ld) [Entitic vol]Ordered By: Riya Pitt on 10-11-2022 Platelet mean volume (Bld) [Entitic vol] 10.7 fL 6.6-10.1 [facility] Platelets Auto (Bld) [#/Vol] Ordered By: Riya Pitt on 10-11-2022 Platelets (Bld) [#/Vol] 203 10*3/uL 150-450 [facility] RBC Auto (Bld) [#/Vol]Ordere d By: Riya Pitt on 10-11-2022 RBC (Bld) [#/Vol] 2.52 10*6/uL 3.90-5.60 [facility] WBC Auto (Bld) [#/Vol]Ordere d By: Riya Pitt on 10-11-2022 WBC (Bld) [#/Vol] 11.3 10*3/uL 4.1-10.5 [facility] Creatinine [Mass/volume] in Serum or PlasmaOrdered By: Riya Pitt on 10-09-2022 Creatinine [Mass/Vol] 3.02 mg/dL 0.70-1.[address] [facility] No Panel InformationOrdered By: Riya Pitt on 10-09-2022 21.228 mL/Min [facility] N/A [facility] Alanine aminotransferase [En zymatic activity/volume] in Serum or PlasmaOrdered By: Mervat Santiago on 10-03-2022 ALT [Catalytic activity/Vol] 26 U/L 7-52 [facility] Albumin [Mass/volume] in Ser um or Plasma by Bromocresol green (BCG) dye binding methoOrdered By: Mervat Santiago on 10-03-2022 Albumin BCG dye [Mass/Vol] 3.4 g/dL 3.5-5.7 [facility] Alkaline phosphatase [Enzyma tic activity/volume] in Serum or PlasmaOrdered By: Mervat Santiago on 10-03-2022 ALP [Catalytic activity/Vol] 199 U/L 34-104 [facility] Aspartate aminotransferase [ Enzymatic activity/volume] in Serum or PlasmaOrdered By: Mervat Saulsic on 10-03-2022 AST [Catalytic activity/Vol] 41 U/L 13-39 [facility] Basophils Auto (Bld) [#/Vol] Ordered By: Mervat Spasic on 10-03-2022 Basophils (Bld) [#/Vol] 0.2 10*3/uL 0.0-0.2 [facility] Basophils/100 WBC Auto (Bld) Ordered By: Mervat Spasic on 10-03-2022 Basophils/100 WBC (Bld) 1.8 % . [facility] Bilirubin.total [Mass/volume ] in Serum or PlasmaOrdered By: Mervat Snyderc on 10-03-2022 Bilirubin [Mass/Vol] 0.3 mg/dL 0.3-1.0 [facility] Calcium [Mass/volume] in Ser um or PlasmaOrdered By: Mervat Saulsic on 10-03-2022 Calcium [Mass/Vol] 7.8 mg/dL 8.6-10.3 [facility] Carbon dioxide, total [Moles /volume] in Serum or PlasmaOrdered By: Mervat Spasic on 10-03-2022 CO2 [Moles/Vol] 20.8 mmol/L 21.0-31.0 [facility] Chloride [Moles/volume] in S leti or PlasmaOrdered By: Mervat Spasic on 10-03-2022 Chloride [Moles/Vol] 111 mmol/L 98-107 [facility] Creatinine [Mass/volume] in Serum or PlasmaOrdered By: Mervat Spasic on 10-03-2022 Creatinine [Mass/Vol] 3.51 mg/dL 0.70-1.[address] [facility] Eosinophils Auto (Bld) [#/Vo l]Ordered By: Mervat Spasic on 10-03-2022 Eosinophils (Bld) [#/Vol] 0.6 10*3/uL 0.0-0.45 [facility] Eosinophils/100 WBC Auto (Bl d)Ordered By: Mervat Santiago on 10-03-2022 Eosinophils/100 WBC (Bld) 4.9 % . [facility] Erythrocyte distribution wid th Auto (RBC) [Ratio]Ordered By: Mervat Santiago on 10-03-2022 Erythrocyte distribution width (RBC) [Ratio] 16.4 % 12.0-14.8 [facility] Globulin Calc (S) [Mass/Vol] Ordered By: Mervat Santiago on 10-03-2022 Globulin (S) [Mass/Vol] 4.1 g/dL [facility] Glucose [Mass/volume] in Ser um or PlasmaOrdered By: Mervat Santiago on 10-03-2022 Glucose [Mass/Vol] 129 mg/dL 70-100 [facility] Hematocrit Auto (Bld) [Volum e fraction]Ordered By: Mervat Santiago on 10-03-2022 Hematocrit (Bld) [Volume fraction] 26.1 % 38.8-50.0 [facility] Hemoglobin [Mass/volume] in BloodOrdered By: Mervat Santiago on 10-03-2022 Hemoglobin (Bld) [Mass/Vol] 8.3 g/dL 13.0-17.0 [facility] Leukocytes [#/volume] correc lakesha for nucleated erythrocytes in Blood by Automated counOrdered By: Mervat Santiago on 10-03-2022 WBC corrected for nucl RBC Auto (Bld) [#/Vol] 13.1 10*3/uL 4.1-10.5 [facility] Lymphocytes Auto (Bld) [#/Vo l]Ordered By: Mervat Santiago on 10-03-2022 Lymphocytes (Bld) [#/Vol] 4.1 10*3/uL 1.00-4.8 [facility] Lymphocytes/100 WBC Auto (Bl d)Ordered By: Mervat Santiago on 10-03-2022 Lymphocytes/100 WBC (Bld) 31.8 % . [facility] MCH Auto (RBC) [Entitic mass ]Ordered By: Mervat Santiago on 10-03-2022 MCH (RBC) [Entitic mass] 30.0 pg 27.5-35.2 [facility] MCHC Auto (RBC) [Mass/Vol]Or dered By: Mervat Santiago on 10-03-2022 MCHC (RBC) [Mass/Vol] 32.0 g/dL 32.5-35.[address] [facility] MCV Auto (RBC) [Entitic vol] Ordered By: Mervat Santiago on 10-03-2022 MCV (RBC) [Entitic vol] 93.6 fL 83.5-101 [facility] Monocytes Auto (Bld) [#/Vol] Ordered By: Mervat Santiago on 10-03-2022 Monocytes (Bld) [#/Vol] 0.9 10*3/uL 0.0-0.8 [facility] Monocytes/100 WBC Auto (Bld) Ordered By: Mervat Santiago on 10-03-2022 Monocytes/100 WBC (Bld) 6.8 % . [facility] Natriuretic peptide B [Mass/ Vol]Ordered By: Mervat Santiago on 10-03-2022 Natriuretic peptide B (Bld) [Mass/Vol] 38.0 pg/mL 5-100 [facility] Neutrophils Auto (Bld) [#/Vo l]Ordered By: Mervat Santiago on 10-03-2022 Neutrophils (Bld) [#/Vol] 7.2 10*3/uL 1.8-7.7 [facility] Neutrophils/100 WBC Auto (Bl d)Ordered By: Mervat Santiago on 10-03-2022 Neutrophils/100 WBC (Bld) 54.7 % . [facility] No Panel InformationOrdered By: Mervat Santiago on 10-03-2022 17.723 mL/Min [facility] N/A [facility] Nucleated erythrocytes [Pres ence] in Blood by Automated countOrdered By: Mervat Santiago on 10-03-2022 Nucleated RBC Auto Ql (Bld) 0.1 /100{WBC} 0-0.5 [facility] Platelet mean volume Auto (B ld) [Entitic vol]Ordered By: Mervat Santiago on 10-03-2022 Platelet mean volume (Bld) [Entitic vol] 11.1 fL 6.6-10.1 [facility] Platelets Auto (Bld) [#/Vol] Ordered By: Mervat Spasic on 10-03-2022 Platelets (Bld) [#/Vol] 196 10*3/uL 150-450 [facility] Potassium [Moles/volume] in Serum or PlasmaOrdered By: Mervat Spasic on 10-03-2022 Potassium [Moles/Vol] 4.6 mmol/L 3.5-5.[address] [facility] Prealbumin [Mass/volume] in Serum or PlasmaOrdered By: Mervat Spasic on 10-03-2022 Prealbumin [Mass/Vol] 20.3 mg/dL 17.0-34.[address] [facility] Protein [Mass/volume] in Ser um or PlasmaOrdered By: Mervat Spasic on 10-03-2022 Protein [Mass/Vol] 7.5 g/dL 6.4-8.9 [facility] RBC Auto (Bld) [#/Vol]Ordere d By: Mervat Spasic on 10-03-2022 RBC (Bld) [#/Vol] 2.78 10*6/uL 3.90-5.60 [facility] Serum or plasma albumin/glob ulin mass ratioOrdered By: Mervat Spasic on 10-03-2022 Albumin/Globulin [Mass ratio] 0.8 {ratio} [facility] Serum or plasma anion gap de terminationOrdered By: Mervat Spasic on 10-03-2022 Anion gap [Moles/Vol] 12.8 mmol/L 6.0-15.0 [facility] Sodium [Moles/volume] in Ser um or PlasmaOrdered By: Mervat Spasic on 10-03-2022 Sodium [Moles/Vol] 140 mmol/L 136-145 [facility] Urea nitrogen [Mass/volume] in Serum or PlasmaOrdered By: Mervat Spasic on 10-03-2022 Urea nitrogen [Mass/Vol] 48 mg/dL 7-25 [facility] WBC Auto (Bld) [#/Vol]Ordere d By: Mervat Santiago on 10-03-2022 WBC (Bld) [#/Vol] 13.1 10*3/uL 4.1-10.5 [facility] Acanthocytes [Presence] in B lood by Light microscopyOrdered By: Riya Pitt on 10-02-2022 Acanthocytes LM Ql (Bld) Slight [facility] Anisocytosis LM Ql (Bld)Orde red By: Riya Pitt on 10-02-2022 Anisocytosis Ql (Bld) Moderate [facility] Basophils Auto (Bld) [#/Vol] Ordered By: Riya Pitt on 10-02-2022 Basophils (Bld) [#/Vol] N/A [facility] Basophils/100 WBC Auto (Bld) Ordered By: Riya Pitt on 10-02-2022 Basophils/100 WBC (Bld) N/A [facility] Prince cells [Presence] in Blo od by Light microscopyOrdered By: Riya Pitt on 10-02-2022 Ranger cells LM Ql (Bld) Slight [facility] Creatinine [Mass/volume] in Serum or PlasmaOrdered By: Riya Pitt on 10-02-2022 Creatinine [Mass/Vol] 3.49 mg/dL 0.70-1.[address] [facility] Eosinophils Auto (Bld) [#/Vo l]Ordered By: Riya Pitt on 10-02-2022 Eosinophils (Bld) [#/Vol] N/A [facility] Eosinophils/100 WBC Auto (Bl d)Ordered By: Riya Pitt on 10-02-2022 Eosinophils/100 WBC (Bld) N/A [facility] Eosinophils/100 WBC Manual c nt (Bld)Ordered By: Riya Pitt on 10-02-2022 Eosinophils/100 WBC (Bld) 8 % 1-3 [facility] Erythrocyte distribution wid th Auto (RBC) [Ratio]Ordered By: Riya Pitt on 10-02-2022 Erythrocyte distribution width (RBC) [Ratio] 16.8 % 12.0-14.8 [facility] Erythrocyte sedimentation ra te by Photometric methodOrdered By: Riya Pitt on 10-02-2022 ESR Photometric method (Bld) [Velocity] 125 mm/hr 0-19 [facility] Giant platelets/100 leukocyt es [Ratio] in Blood by Manual countOrdered By: Riya Pitt on 10-02-2022 Giant platelets/100 WBC Manual cnt (Bld) [Ratio] 7 /100{WBC} [facility] Hematocrit Auto (Bld) [Volum e fraction]Ordered By: Riya Pitt on 10-02-2022 Hematocrit (Bld) [Volume fraction] 23.7 % 38.8-50.0 [facility] Hemoglobin [Mass/volume] in BloodOrdered By: Riya Pitt on 10-02-2022 Hemoglobin (Bld) [Mass/Vol] 7.9 g/dL 13.0-17.0 [facility] Hypochromia LM Ql (Bld)Order ed By: Riya Pitt on 10-02-2022 Hypochromia Ql (Bld) Marked [facility] Leukocytes [#/volume] correc lakesha for nucleated erythrocytes in Blood by Automated counOrdered By: Riya Pitt on 10-02-2022 WBC corrected for nucl RBC Auto (Bld) [#/Vol] 12.4 10*3/uL 4.1-10.5 [facility] Lymphocytes Auto (Bld) [#/Vo l]Ordered By: Riya Pitt on 10-02-2022 Lymphocytes (Bld) [#/Vol] N/A [facility] Lymphocytes/100 WBC Auto (Bl d)Ordered By: Riya Pitt on 10-02-2022 Lymphocytes/100 WBC (Bld) N/A [facility] Lymphocytes/100 WBC Manual c nt (Bld)Ordered By: Riya Pitt on 10-02-2022 Lymphocytes/100 WBC (Bld) 29 % 18-42 [facility] MCH Auto (RBC) [Entitic mass ]Ordered By: Riya Pitt on 10-02-2022 MCH (RBC) [Entitic mass] 32.2 pg 27.5-35.2 [facility] MCHC Auto (RBC) [Mass/Vol]Or dered By: Riya Pitt on 10-02-2022 MCHC (RBC) [Mass/Vol] 33.2 g/dL 32.5-35.[address] [facility] MCV Auto (RBC) [Entitic vol] Ordered By: Riya Pitt on 10-02-2022 MCV (RBC) [Entitic vol] 97.0 fL 83.5-101 [facility] Macrocytes LM Ql (Bld)Ordere d By: Riya Pitt on 10-02-2022 Macrocytes Ql (Bld) Slight [facility] Monocytes Auto (Bld) [#/Vol] Ordered By: Riya Pitt on 10-02-2022 Monocytes (Bld) [#/Vol] N/A [facility] Monocytes/100 WBC Auto (Bld) Ordered By: Riya Pitt on 10-02-2022 Monocytes/100 WBC (Bld) N/A [facility] Monocytes/100 WBC Manual cnt (Bld)Ordered By: Riya Pitt on 10-02-2022 Monocytes/100 WBC (Bld) 7 % 2-11 [facility] Neutrophils Auto (Bld) [#/Vo l]Ordered By: Riya Pitt on 10-02-2022 Neutrophils (Bld) [#/Vol] N/A [facility] Neutrophils/100 WBC Auto (Bl d)Ordered By: Riya Pitt on 10-02-2022 Neutrophils/100 WBC (Bld) N/A [facility] No Panel InformationOrdered By: Riya Pitt on 10-02-2022 17.845 mL/Min [facility] N/A [facility] Nucleated RBC/100 WBC Manual cnt (Bld) [Ratio]Ordered By: Riya Pitt on 10-02-2022 Nucleated RBC/100 WBC (Bld) [Ratio] 1 /100{WBC} 0-0 [facility] Nucleated erythrocytes [Pres ence] in Blood by Automated countOrdered By: Riya Pitt on 10-02-2022 Nucleated RBC Auto Ql (Bld) N/A [facility] Platelet adequacy [Presence] in Blood by Light microscopyOrdered By: Riya Pitt on 10-02-2022 Platelets LM Ql (Bld) Normal Normal [facility] Platelet mean volume Auto (B ld) [Entitic vol]Ordered By: Riya Pitt on 10-02-2022 Platelet mean volume (Bld) [Entitic vol] 10.4 fL 6.6-10.1 [facility] Platelet morphology finding [Identifier] in BloodOrdered By: Riya Pitt on 10-02-2022 Platelet morphology finding Nom (Bld) N/A [facility] Platelets Auto (Bld) [#/Vol] Ordered By: Riya Pitt on 10-02-2022 Platelets (Bld) [#/Vol] 173 10*3/uL 150-450 [facility] Poikilocytosis [Presence] in Blood by Light microscopyOrdered By: Riya Pitt on 10-02-2022 Poikilocytosis LM Ql (Bld) Moderate [facility] Polychromasia [Presence] in Blood by Light microscopyOrdered By: Riya Pitt on 10-02-2022 Polychromasia LM Ql (Bld) Marked [facility] RBC Auto (Bld) [#/Vol]Ordere d By: Riya Pitt on 10-02-2022 RBC (Bld) [#/Vol] 2.44 10*6/uL 3.90-5.60 [facility] RBC morphologyOrdered By: Angelita Pitt on 10-02-2022 RBC morphology finding Nom (Bld) N/A [facility] Segmented neutrophils/100 WB C Manual cnt (Bld)Ordered By: Riya Pitt on 10-02-2022 Segmented neutrophils/100 WBC (Bld) 57 % 50-70 [facility] Target cellsOrdered By: Bhavin Pitt on 10-02-2022 Target cells LM Ql (Bld) Moderate [facility] WBC Auto (Bld) [#/Vol]Ordere d By: Riya Pitt on 10-02-2022 WBC (Bld) [#/Vol] 12.4 10*3/uL 4.1-10.5 [facility] CNPNon 09-23-2022 CNPN Telephone (IRRFV) SIMON LOTT ([id number]) 1950 M Date Time Provider Department 09/23/22 BRI FAIR IRRFV During your visit today, we recorded the following information about you: Bri Fair 09/23/2022 9:[address] Corbett took neph tube out in office. Patient no longer has any tubes. Allergies As of Date: 09/23/2022 Noted Allergy Reaction LISINOPRIL 07/17/2022 7 - Swelling CODEINE 07/13/2015 8 - GI Upset Date Reviewed: 07/18/2022 Reviewed by: Kimber See APRN.NETWORK CONTROL TECHNICIAN - Fully Assessed Reason for Visit: tube removal [Other] Prescriptions as of 09/23/2022 - clopidogrel (PLAVIX) 75 mg tablet Take 1 tablet by mouth once daily. - ascorbic acid-bioflavonoids 500-500 mg cap Take by mouth once daily. - folic acid 1 mg tablet Take 1 mg by mouth once daily. - NIFEdipine ER (PROCARDIA XL) 30 mg 24 hr tablet Take 30 mg by mouth once daily. - doxycycline hyclate (VIBRAMYCIN) 100 mg capsule - amoxicillin (POLYMOX, AMOXIL) 500 mg capsule take 1 capsule by mouth every 8 hours for 7 days - ondansetron (ZOFRAN) 4 mg tablet Take 4 mg by mouth every 8 hours as needed. - sulfamethoxazole-trimet hoprim (BACTRIM DS,SEPTRA DS) 800-160 mg per tablet Take by mouth twice daily. - DULoxetine (CYMBALTA) 60 mg capsule Take 60 mg by mouth once daily. - bisacodyl (DULCOLAX) 10 mg supp 10 mg by RECTAL route once daily as needed. - ferrous sulfate 325 mg (65 mg iron) tablet Take 325 mg by mouth daily with breakfast. - furosemide (LASIX) 40 mg tablet Take 40 mg by mouth twice daily. - ammonium lactate (LAC-HYDRIN) 12 % cream Apply to affected area as needed. - INSULIN DETEMIR (LEVEMIR FLEXPEN SUBCUTANEOUS) Inject subcutaneously. - magnesium hydroxide (MOM) 400 mg/5 mL suspension Take by mouth once daily as needed. - insulin aspart U-100 (NOVOLOG) 100 unit/mL Inject subcutaneously. As directed - POTASSIUM ORAL Take by mouth. - aluminum-magnesium hydroxide-simethicone (MAALOX,MYLANTA,MAG-AL PLUS) 200-200-20 mg/5 mL suspension Take by mouth every 6 hours as needed. - acarbose (PRECOSE) 100 mg tablet Take 100 mg by mouth three times daily with meals. - amitriptyline (ELAVIL) 25 mg tablet Take 10 mg by mouth daily at bedtime. - aspirin, enteric coated (ASPIRIN, ENTERIC COATED) 81 mg EC tablet Take 81 mg by mouth once daily. - atorvastatin (LIPITOR) 40 mg tablet Take 40 mg by mouth once daily. - VITAMIN B COMPLEX (B-COMPLEX ORAL) Take by mouth. - PSEUDOEPHEDRINE/ACETAMI NOPHEN (CEPACOL SORE THROAT ORAL) Take by mouth. - tamsulosin ER (FLOMAX) 0.4 mg cp24 Take 0.4 mg by mouth. - acetaminophen (TYLENOL) 325 mg tablet Take 650 mg by mouth every 6 hours as needed. - LIRAGLUTIDE (VICTOZA 2-LEO SUBCUTANEOUS) Inject subcutaneously. As directed - CALCIUM CARBONATE/VITAMIN D3 (VITAMIN D-3 ORAL) Take by mouth. - GABAPENTIN (NEURONTIN ORAL) Take 1 tablet by mouth three times daily. - MULTIVITAMIN (MULTIPLE VITAMIN ORAL) Take 1 tablet by mouth once daily. Problem List As Of Date 09/23/2022 Noted Resolved APPOINTMENT CANCELLED 07/13/2015 07/13/2015 Leukocytosis [D72.829] 03/25/2017 Anemia [D64.9] 03/25/2017 Stage 4 chronic kidney disease (HCC) [N18.4] 03/25/2017 Gross hematuria [R31.0] 07/17/2022 Coronary artery disease [I25.10] 07/24/2021 Diabetes mellitus without complication (HCC) [E*09/13/2021 Mixed hyperlipidemia [E78.2] 07/18/2017 Venous insufficiency (chronic) (peripheral) [I8*04/06/2018 BPH with urinary obstruction [N40.1, N13.8] 07/17/2022 Gastroparesis [K31.84] 07/17/2022 Hydroureteronephrosis [N13.30] 11/14/2021 Gastroesophageal reflux disease without esophag*07/17/2022 Hyperkalemia [E87.5] 07/17/2022 Nicotine use disorder, F17.2 [F17.200] 07/18/2022 Hematuria [R31.9] 07/18/2022 Encounter Status:Closed by BRI FAIR on 09/23/22 Normal [facility] Lab Reportson 09-17-2022 Lab Reports [id number] D:127 Normal [facility] Acanthocytes [Presence] in B lood by Light microscopyOrdered By: Kevin Maryan on 09-12-2022 Acanthocytes LM Ql (Bld) Slight [facility] Albumin [Mass/volume] in Ser um or Plasma by Bromocresol green (BCG) dye binding methoOrdered By: Kevin Maryan on 09-12-2022 Albumin BCG dye [Mass/Vol] 3.0 g/dL 3.5-5.7 [facility] Anisocytosis LM Ql (Bld)Orde red By: Kevin Maryan on 09-12-2022 Anisocytosis Ql (Bld) Moderate [facility] Basophils Auto (Bld) [#/Vol] Ordered By: Kevin Maryan on 09-12-2022 Basophils (Bld) [#/Vol] N/A [facility] Basophils/100 WBC Auto (Bld) Ordered By: Kevin Maryan on 09-12-2022 Basophils/100 WBC (Bld) 2.0 % . [facility] Prince cells [Presence] in Blo od by Light microscopyOrdered By: Kevin Maryan on 09-12-2022 Prince cells LM Ql (Bld) Slight [facility] Calcium [Mass/volume] in Ser um or PlasmaOrdered By: Kevin Maryan on 09-12-2022 Calcium [Mass/Vol] 8.3 mg/dL 8.6-10.3 [facility] Carbon dioxide, total [Moles /volume] in Serum or PlasmaOrdered By: Kevin Maryan on 09-12-2022 CO2 [Moles/Vol] 19.2 mmol/L 21.0-31.0 [facility] Chloride [Moles/volume] in S leti or PlasmaOrdered By: Kevin Maryan on 09-12-2022 Chloride [Moles/Vol] 112 mmol/L 98-107 [facility] Creatinine [Mass/volume] in Serum or PlasmaOrdered By: Kevin Steinberg on 09-12-2022 Creatinine [Mass/Vol] 4.89 mg/dL 0.70-1.[address] [facility] Eosinophils Auto (Bld) [#/Vo l]Ordered By: Kevin Steinberg on 09-12-2022 Eosinophils (Bld) [#/Vol] N/A [facility] Eosinophils/100 WBC Auto (Bl d)Ordered By: Kevin Steinberg on 09-12-2022 Eosinophils/100 WBC (Bld) 3.0 % . [facility] Erythrocyte distribution wid th Auto (RBC) [Ratio]Ordered By: Kevin Steinberg on 09-12-2022 Erythrocyte distribution width (RBC) [Ratio] 16.4 % 12.0-14.8 [facility] Glucose Glucometer (BldC) [M ass/Vol]Ordered By: Kevin Steinberg on 09-12-2022 Glucose [Mass/Vol] 99 mg/dL [facility] Glucose [Mass/volume] in Ser um or PlasmaOrdered By: Kevin Steinberg on 09-12-2022 Glucose [Mass/Vol] 75 mg/dL 70-100 [facility] Hematocrit Auto (Bld) [Volum e fraction]Ordered By: Kevin Steinberg on 09-12-2022 Hematocrit (Bld) [Volume fraction] 26.1 % 38.8-50.0 [facility] Hemoglobin [Mass/volume] in BloodOrdered By: Kevin Steinberg on 09-12-2022 Hemoglobin (Bld) [Mass/Vol] 8.5 g/dL 13.0-17.0 [facility] Hypochromia LM Ql (Bld)Order ed By: Kevin Steinberg on 09-12-2022 Hypochromia Ql (Bld) Moderate [facility] Leukocytes [#/volume] correc lakesha for nucleated erythrocytes in Blood by Automated counOrdered By: Kevin Steinberg on 09-12-2022 WBC corrected for nucl RBC Auto (Bld) [#/Vol] 13.6 10*3/uL 4.1-10.5 [facility] Lymphocytes Auto (Bld) [#/Vo l]Ordered By: Kevin Maryan on 09-12-2022 Lymphocytes (Bld) [#/Vol] N/A [facility] Lymphocytes/100 WBC Auto (Bl d)Ordered By: Kevin Maryan on 09-12-2022 Lymphocytes/100 WBC (Bld) 36.0 % . [facility] MCH Auto (RBC) [Entitic mass ]Ordered By: Kevin Maryan on 09-12-2022 MCH (RBC) [Entitic mass] 30.4 pg 27.5-35.2 [facility] MCHC Auto (RBC) [Mass/Vol]Or dered By: Kevin Maryan on 09-12-2022 MCHC (RBC) [Mass/Vol] 32.7 g/dL 32.5-35.6 [facility] MCV Auto (RBC) [Entitic vol] Ordered By: Kevin Maryan on 09-12-2022 MCV (RBC) [Entitic vol] 92.9 fL 83.5-101 [facility] Macrocytes LM Ql (Bld)Ordere d By: Kevin Maryan on 09-12-2022 Macrocytes Ql (Bld) Slight [facility] Monocytes Auto (Bld) [#/Vol] Ordered By: Kevin Maryan on 09-12-2022 Monocytes (Bld) [#/Vol] N/A [facility] Monocytes/100 WBC Auto (Bld) Ordered By: Kevin Maryan on 09-12-2022 Monocytes/100 WBC (Bld) 1.0 % . [facility] Neutrophils Auto (Bld) [#/Vo l]Ordered By: Kevin Maryan on 09-12-2022 Neutrophils (Bld) [#/Vol] N/A [facility] Neutrophils/100 WBC Auto (Bl d)Ordered By: Kevin Maryan on 09-12-2022 Neutrophils/100 WBC (Bld) 59.0 % . [facility] No Panel InformationOrdered By: Kevin Maryan on 09-12-2022 11.906 mL/Min [facility] 18.07 [facility] Nucleated erythrocytes [Pres ence] in Blood by Automated countOrdered By: Kevin Steinberg on 09-12-2022 Nucleated RBC Auto Ql (Bld) 0.0 /100{WBC} 0-0.5 [facility] Phosphate [Mass/volume] in S leti or PlasmaOrdered By: Kevin Steinberg on 09-12-2022 Phosphate [Mass/Vol] 3.5 mg/dL 3.7-7.2 [facility] Platelet adequacy [Presence] in Blood by Light microscopyOrdered By: Kevin Steinberg on 09-12-2022 Platelets LM Ql (Bld) Normal Normal [facility] Platelet mean volume Auto (B ld) [Entitic vol]Ordered By: Kevin Steinberg on 09-12-2022 Platelet mean volume (Bld) [Entitic vol] 10.0 fL 6.6-10.1 [facility] Platelet morphology finding [Identifier] in BloodOrdered By: Kevin Steinberg on 09-12-2022 Platelet morphology finding Nom (Bld) Normal Normal [facility] Platelets Auto (Bld) [#/Vol] Ordered By: Kevin Steinberg on 09-12-2022 Platelets (Bld) [#/Vol] 168 10*3/uL 150-450 [facility] Poikilocytosis [Presence] in Blood by Light microscopyOrdered By: Kevin Steinberg on 09-12-2022 Poikilocytosis LM Ql (Bld) [facility] Polychromasia [Presence] in Blood by Light microscopyOrdered By: Kevin Steinberg on 09-12-2022 Polychromasia LM Ql (Bld) [facility] Potassium [Moles/volume] in Serum or PlasmaOrdered By: Kevin Steinberg on 09-12-2022 Potassium [Moles/Vol] 4.9 mmol/L 3.5-5.[address] [facility] RBC Auto (Bld) [#/Vol]Ordere d By: Kevin Steinberg on 09-12-2022 RBC (Bld) [#/Vol] 2.81 10*6/uL 3.90-5.60 [facility] RBC morphologyOrdered By: Tessy Steinberg on 09-12-2022 RBC morphology finding Nom (Bld) N/A [facility] Serum or plasma anion gap de terminationOrdered By: Kevin Steinberg on 09-12-2022 Anion gap [Moles/Vol] 10.7 mmol/L 6.0-15.0 [facility] Sodium [Moles/volume] in Ser um or PlasmaOrdered By: Kevin Steinberg on 09-12-2022 Sodium [Moles/Vol] 137 mmol/L 136-145 [facility] Target cellsOrdered By: Ramiro Steinberg on 09-12-2022 Target cells LM Ql (Bld) Slight [facility] Urea nitrogen [Mass/volume] in Serum or PlasmaOrdered By: Kevin Steinberg on 09-12-2022 Urea nitrogen [Mass/Vol] 43 mg/dL 7-25 [facility] Vancomycin [Mass/volume] in Serum or PlasmaOrdered By: Kevin Steinberg on 09-12-2022 Vancomycin [Mass/Vol] 14.0 ug/mL 5.0-20.[address] [facility] WBC Auto (Bld) [#/Vol]Ordere d By: Kevin Steinberg on 09-12-2022 WBC (Bld) [#/Vol] 13.6 10*3/uL 4.1-10.5 [facility] Activated partial thrombopla stin time (aPTT) in platelet poor plasma by coagulation aOrdered By: Serafin Pearson on 09-10-2022 aPTT Coag (PPP) [Time] 30.9 s 25.1-36.5 [facility] Automated erythrocytes count in urine sediment (number/area)Ordered By: Serafin Pearson on 09-10-2022 RBC Auto (Urine sed) [#/Area] 1-2 [HPF] 0-4 [facility] Automated leukocytes count i n urine sediment (number/area)Ordered By: Serafin Pearson on 09-10-2022 WBC Auto (Urine sed) [#/Area] None seen [HPF] 0-4 [facility] Bacteria identified Aer cx N om (Unsp spec)Ordered By: Serafin Pearson on 09-10-2022 Aerobic culture Proteus mirabilis [facility] Aerobic culture Providencia stuartii (MDRO) [facility] Aerobic culture Enterococcus faecali s (VRE) [facility] Aerobic culture Pseudomonas aeruginosa [facility] Bacterial blood cultureOrder ed By: Serafin Pearson on 09-10-2022 Bacteria identified Cx Nom (Bld) NO GROWTH 5 DAYS [facility] Basophils Auto (Bld) [#/Vol] Ordered By: Serafin Pearson on 09-10-2022 Basophils (Bld) [#/Vol] 0.0 10*3/uL 0.0-0.2 [facility] Basophils/100 WBC Auto (Bld) Ordered By: Serafin Pearson on 09-10-2022 Basophils/100 WBC (Bld) 0.4 % . [facility] Bilirubin Test strip Ql (U)O rdered By: Serafin Pearson on 09-10-2022 Bilirubin Ql (U) Negative Negative [facility] Bilirubin.total [Mass/volume ] in Serum or PlasmaOrdered By: Serafin Pearson on 09-10-2022 Bilirubin [Mass/Vol] 0.3 mg/dL 0.3-1.0 [facility] C reactive protein [Mass/vol ume] in Serum or PlasmaOrdered By: Serafin Pearson on 09-10-2022 CRP [Mass/Vol] 0.8 mg/dL 0.0-0.5 [facility] Calcium [Mass/volume] in Ser um or PlasmaOrdered By: Serafin Pearson on 09-10-2022 Calcium [Mass/Vol] 8.5 mg/dL 8.6-10.3 [facility] Carbon dioxide, total [Moles /volume] in Serum or PlasmaOrdered By: Serafin Pearson on 09-10-2022 CO2 [Moles/Vol] 19.7 mmol/L 21.0-31.0 [facility] Chloride [Moles/volume] in S leti or PlasmaOrdered By: Serafin Pearson on 09-10-2022 Chloride [Moles/Vol] 107 mmol/L 98-107 [facility] Color Auto (U)Ordered By: Kenton Pearson on 09-10-2022 Color (U) Yellow Yellow [facility] Creatinine [Mass/volume] in Serum or PlasmaOrdered By: Serafin Pearson on 09-10-2022 Creatinine [Mass/Vol] 4.41 mg/dL 0.70-1.[address] [facility] Eosinophils Auto (Bld) [#/Vo l]Ordered By: Serafin Pearson on 09-10-2022 Eosinophils (Bld) [#/Vol] 0.4 10*3/uL 0.0-0.45 [facility] Eosinophils/100 WBC Auto (Bl d)Ordered By: Serafin Pearson on 09-10-2022 Eosinophils/100 WBC (Bld) 3.5 % . [facility] Erythrocyte distribution wid th Auto (RBC) [Ratio]Ordered By: Serafin Pearson on 09-10-2022 Erythrocyte distribution width (RBC) [Ratio] 16.3 % 12.0-14.8 [facility] Erythrocyte sedimentation ra te by Photometric methodOrdered By: Serafin Pearson on 09-10-2022 ESR Photometric method (d) [Velocity] 122 mm/hr 0-19 [facility] Glucose [Mass/volume] in Ser um or PlasmaOrdered By: Serafin Pearson on 09-10-2022 Glucose [Mass/Vol] 130 mg/dL 70-100 [facility] Hematocrit Auto (Bld) [Volum e fraction]Ordered By: Serafin Pearson on 09-10-2022 Hematocrit (Bld) [Volume fraction] 29.9 % 38.8-50.0 [facility] Hemoglobin [Mass/volume] in BloodOrdered By: Serafin Pearson on 09-10-2022 Hemoglobin (Bld) [Mass/Vol] 9.5 g/dL 13.0-17.0 [facility] Ketones Auto test strip (U) [Mass/Vol]Ordered By: Serafin Pearson on 09-10-2022 Ketones (U) [Mass/Vol] Negative Negative Fi [facility] Lactate [Moles/volume] in Se rum or PlasmaOrdered By: Serafin Pearson on 09-10-2022 Lactate [Moles/Vol] 1.3 mmol/L 0.5-2.2 [facility] Leukocytes [#/volume] correc lakesha for nucleated erythrocytes in Blood by Automated counOrdered By: Serafin Pearson on 09-10-2022 WBC corrected for nucl RBC Auto (Bld) [#/Vol] 12.2 10*3/uL 4.1-10.5 [facility] Lymphocytes Auto (Bld) [#/Vo l]Ordered By: Serafin Pearson on 09-10-2022 Lymphocytes (Bld) [#/Vol] 5.1 10*3/uL 1.00-4.8 [facility] Lymphocytes/100 WBC Auto (Bl d)Ordered By: Serafin Pearson on 09-10-2022 Lymphocytes/100 WBC (Bld) 42.1 % . [facility] MCH Auto (RBC) [Entitic mass ]Ordered By: Serafin Pearson on 09-10-2022 MCH (RBC) [Entitic mass] 30.0 pg 27.5-35.2 [facility] MCHC Auto (RBC) [Mass/Vol]Or dered By: Serafin Pearson on 09-10-2022 MCHC (RBC) [Mass/Vol] 31.8 g/dL 32.5-35.6 [facility]ir [facility] MCV Auto (RBC) [Entitic vol] Ordered By: Serafin Pearson on 09-10-2022 MCV (RBC) [Entitic vol] 94.4 fL 83.5-101 [facility] Monocyte distribution width [Entitic volume] in Blood by AutomatedOrdered By: Serafin Pearson on 09-10-2022 Monocyte distribution width Auto (Bld) [Entitic vol] 19.06 % 0.00-20.00 [facility] Monocytes Auto (Bld) [#/Vol] Ordered By: Serafin Pearson on 09-10-2022 Monocytes (Bld) [#/Vol] 1.0 10*3/uL 0.0-0.8 [facility] Monocytes/100 WBC Auto (Bld) Ordered By: Serafin Pearson on 09-10-2022 Monocytes/100 WBC (Bld) 8.6 % . [facility] Neutrophils Auto (Bld) [#/Vo l]Ordered By: Serafin Pearson on 09-10-2022 Neutrophils (Bld) [#/Vol] 5.5 10*3/uL 1.8-7.7 [facility] Neutrophils/100 WBC Auto (Bl d)Ordered By: Serafin Pearson on 09-10-2022 Neutrophils/100 WBC (Bld) 45.4 % . [facility] Nitrite Test strip Ql (U)Ord ered By: Serafin Pearson on 09-10-2022 Nitrite Ql (U) Negative Negative [facility] No Panel InformationOrdered By: Kevin Steinberg on 09-10-2022 Glu2: cleaned meter [facility] No Panel InformationOrdered By: Serafin Pearson on 09-10-2022 None seen [LPF] 0-8 [facility] 12.6 s 9.0-12.9 [facility] 13.476 mL/Min [facility] 19.50 [facility] Nucleated erythrocytes [Pres ence] in Blood by Automated countOrdered By: Serafin Pearson on 09-10-2022 Nucleated RBC Auto Ql (Bld) 0.1 /100{WBC} 0-0.5 [facility] Platelet mean volume Auto (B ld) [Entitic vol]Ordered By: Serafin Pearson on 09-10-2022 Platelet mean volume (Bld) [Entitic vol] 10.3 fL 6.6-10.1 [facility] Platelet poor plasma interna tional normalized ratio (INR) by coagulation assay (relatOrdered By: Serafin Pearson on 09-10-2022 INR Coag (PPP) [Relative time] 1.1 {INR} [facility] Platelets Auto (Bld) [#/Vol] Ordered By: Serafin Pearson on 09-10-2022 Platelets (Bld) [#/Vol] 214 10*3/uL 150-450 [facility] Potassium [Moles/volume] in Serum or PlasmaOrdered By: Serafin Pearson on 09-10-2022 Potassium [Moles/Vol] 5.2 mmol/L 3.5-5.[address] [facility] Protein Auto test strip (U) [Mass/Vol]Ordered By: Serafin Pearson on 09-10-2022 Protein (U) [Mass/Vol] 300 mg/dL Negative Fi [facility] RBC Auto (Bld) [#/Vol]Ordere d By: Serafin Pearson on 09-10-2022 RBC (Bld) [#/Vol] 3.17 10*6/uL 3.90-5.60 [facility] Serum or plasma anion gap de terminationOrdered By: Serafin Pearson on 09-10-2022 Anion gap [Moles/Vol] 12.5 mmol/L 6.0-15.0 [facility] Sodium [Moles/volume] in Ser um or PlasmaOrdered By: Serafin Pearson on 09-10-2022 Sodium [Moles/Vol] 134 mmol/L 136-145 [facility] Specific gravity Auto test s trip (U) [Rel density]Ordered By: Serafin Pearson on 09-10-2022 Specific gravity (U) [Rel density] 1.012 1.001-1.030 [facility] Squamous epithelial cells de tection in urine sediment by light microscopyOrdered By: Serafin Pearson on 09-10-2022 Epithelial cells.squamous LM Ql (Urine sed) None seen [HPF] 0-2 [facility] Urea nitrogen [Mass/volume] in Serum or PlasmaOrdered By: Serafin Pearson on 09-10-2022 Urea nitrogen [Mass/Vol] 41 mg/dL 7-25 [facility] Urine bacteria detection by automated methodOrdered By: Serafin Pearson on 09-10-2022 Bacteria Auto Ql (U) None seen None Seen [facility] Urine clarity by refractomet ry automatedOrdered By: Serafin Pearson on 09-10-2022 Clarity Refractometry automated (U) Clear Clear [facility] Urine glucose measurement by automated test strip (mass/volume)Ordered By: Serafin Pearson on 09-10-2022 Glucose Auto test strip (U) [Mass/Vol] Normal mg/dL Normal [facility] Urine hemoglobin detection b y automated test stripOrdered By: Serafin Pearson on 09-10-2022 Hemoglobin Auto test strip Ql (U) Trace Negative [facility] Urine leukocyte esterase det ection by automated test stripOrdered By: Serafin Pearson on 09-10-2022 Leukocyte esterase Auto test strip Ql (U) Negative Negative [facility] Urobilinogen Auto test strip (U) [Mass/Vol]Ordered By: Serafin Pearson on 09-10-2022 Urobilinogen (U) [Mass/Vol] Normal mg/dL Normal [facility] WBC Auto (Bld) [#/Vol]Ordere d By: Serafin Pearson on 09-10-2022 WBC (Bld) [#/Vol] 12.2 10*3/uL 4.1-10.5 [facility] pH Auto test strip (U)Ordere d By: Serafin Pearson on 09-10-2022 pH (U) 6.0 [pH] 5.0-9.0 [facility] Alanine aminotransferase [En zymatic activity/volume] in Serum or PlasmaOrdered By: Oblauradamela Gilesomar on 08-31-2022 ALT [Catalytic activity/Vol] 7 U/L 7-52 [facility] Albumin [Mass/volume] in Ser um or Plasma by Bromocresol green (BCG) dye binding methoOrdered By: Marybethdamela Gilesomaclaire on 08-31-2022 Albumin BCG dye [Mass/Vol] 2.6 g/dL 3.5-5.7 [facility] Alkaline phosphatase [Enzyma tic activity/volume] in Serum or PlasmaOrdered By: Oblauradah Chanomar on 08-31-2022 ALP [Catalytic activity/Vol] 93 U/L 34-104 [facility] Aspartate aminotransferase [ Enzymatic activity/volume] in Serum or PlasmaOrdered By: Oblauradah Daromar on 08-31-2022 AST [Catalytic activity/Vol] 13 U/L 13-39 [facility] Basophils Auto (Bld) [#/Vol] Ordered By: Isamar Mar on 08-31-2022 Basophils (Bld) [#/Vol] 0.1 10*3/uL 0.0-0.2 [facility] Basophils/100 WBC Auto (Bld) Ordered By: Isamar Mar on 08-31-2022 Basophils/100 WBC (Bld) 0.7 % . [facility] Bilirubin.total [Mass/volume ] in Serum or PlasmaOrdered By: Oblauradah Daromar on 08-31-2022 Bilirubin [Mass/Vol] 0.3 mg/dL 0.3-1.0 [facility] Calcium [Mass/volume] in Ser um or PlasmaOrdered By: Oblauradah Chanomalcaire on 08-31-2022 Calcium [Mass/Vol] 7.4 mg/dL 8.6-10.3 [facility] Carbon dioxide, total [Moles /volume] in Serum or PlasmaOrdered By: Obashley Gilesomar on 08-31-2022 CO2 [Moles/Vol] 21.0 mmol/L 21.0-31.0 [facility] Chloride [Moles/volume] in S leti or PlasmaOrdered By: Obashley Gilesomar on 08-31-2022 Chloride [Moles/Vol] 111 mmol/L 98-107 [facility] Complete Blood Count Auto Di ffon 08-31-2022 Basophils (Bld) [#/Vol] 0.1 10*3/uL Normal 0.0-0.2 [facility] Comment on above: Result Comment: PERF ORMED BY:[address] [place], [place] [id number] MEDICAL DIRECTORCHRISTO PINO M.D. Performed By: #### C BC, FE and TIBC, CMP, [id number], [place] ####[address] Basophils/100 WBC (Bld) 0.7 % Normal . [facility] Comment on above: Performed By: #### C BC, FE and TIBC, CMP, [id number], [place] ####[place] [id number] [facility] Eosinophils (Bld) [#/Vol] 0.4 10*3/uL Normal 0.0-0.45 [facility] Comment on above: Performed By: #### C BC, FE and TIBC, CMP, [id number], [place] ####[place] [address] [place] Eosinophils/100 WBC (Bld) 3.5 % Normal . [facility] Comment on above: Performed By: #### C BC, FE and TIBC, CMP, [id number], [place] ####[address] [place] [address] [place] Erythrocyte distribution width (RBC) [Ratio] 16.8 % High 12.0-14.8 [facility] Comment on above: Performed By: #### C BC, FE and TIBC, CMP, [id number], [place] ####[address] Hematocrit (Bld) [Volume fraction] 27.1 % Low 38.8-50.0 [facility] Comment on above: Performed By: #### C BC, FE and TIBC, CMP, [id number], [place] ####[address] Hemoglobin (Bld) [Mass/Vol] 8.7 g/dL Low 13.0-17.0 [facility] Comment on above: Performed By: #### C BC, FE and TIBC, CMP, [id number], [place] ####[address] Lymphocytes (Bld) [#/Vol] 3.9 10*3/uL Normal 1.00-4.8 [facility] Comment on above: Performed By: #### C BC, FE and TIBC, CMP, [id number], OKSANA ####[address] Lymphocytes/100 WBC (Bld) 32.8 % Normal . [facility] Comment on above: Performed By: #### C BC, FE and TIBC, CMP, [id number], OKSANA ####[address] MCH (RBC) [Entitic mass] 29.7 pg Normal 27.5-35.2 [facility] Comment on above: Performed By: #### C BC, FE and TIBC, CMP, [id number], OKSANA ####[address] MCV (RBC) [Entitic vol] 92.1 fL Normal 83.5-101 [facility] Comment on above: Performed By: #### C BC, FE and TIBC, CMP, [id number], OKSANA ####[address] Mean Corpuscular HGB Conc 32.2 g/dL Low 32.5-35.6 [facility] Comment on above: Performed By: #### C BC, FE and TIBC, CMP, [id number], OKSANA ####[address] Monocytes (Bld) [#/Vol] 1.0 10*3/uL High 0.0-0.8 [facility] Comment on above: Performed By: #### C BC, FE and TIBC, CMP, [id number], OKSANA ####[address] Monocytes/100 WBC (Bld) 8.4 % Normal . [facility] Comment on above: Performed By: #### C BC, FE and TIBC, CMP, [id number], OK[place] ####[address] Neutrophils (Bld) [#/Vol] 6.5 10*3/uL Normal 1.8-7.7 [facility] Comment on above: Performed By: #### C BC, FE and TIBC, CMP, [id number], [place] ####[address] Neutrophils/100 WBC (Bld) 54.6 % Normal . [facility] Comment on above: Performed By: #### C BC, FE and TIBC, CMP, [id number], OKSANA ####[address] NRBC% 0.1 /100{WBC} Normal 0-0.5 [facility] Comment on above: Performed By: #### C BC, FE and TIBC, CMP, [id number], [place] ####[address] Platelet mean volume (Bld) [Entitic vol] 9.4 fL Normal 6.6-10.1 [facility] Comment on above: Performed By: #### C BC, FE and TIBC, CMP, [id number], OKSA[place] ####[address] Platelets (Bld) [#/Vol] 244 10*3/uL Normal 150-450 [facility] Comment on above: Performed By: #### C BC, FE and TIBC, CMP, [id number], OK[place]NA ####[address] RBC (Bld) [#/Vol] 2.94 10*6/uL Low 3.90-5.60 [facility] Comment on above: Performed By: #### C BC, FE and TIBC, CMP, [id number], [place] ####[address] WBC (Bld) [#/Vol] 11.9 10*3/uL High 4.1-10.5 [facility] Comment on above: Performed By: #### C BC, FE and TIBC, CMP, [id number], [place] ####[address] Comprehensive Metabolic Pane fidel 08-31-2022 Albumin [Mass/Vol] 2.6 g/dL Low 3.5-5.7 [facility] Comment on above: Performed By: #### C BC, FE and TIBC, CMP, [id number], OKSANA ####[address] Albumin/Globulin [Mass ratio] 0.5 {ratio} Normal [facility] Comment on above: Performed By: #### C BC, FE and TIBC, CMP, [id number], OKSANA ####[address] ALP [Catalytic activity/Vol] 93 U/L Normal 34-104 [facility] Comment on above: Performed By: #### C BC, FE and TIBC, CMP, [id number], OK[place]NA ####[address] [address] [facility] ALT [Catalytic activity/Vol] 7 U/L Normal 7-52 [facility] Comment on above: Performed By: #### C BC, FE and TIBC, CMP, [id number], OKSANA ####[address] [address] [facility] Anion gap [Moles/Vol] 12.5 mmol/L Normal 6.0-15.0 [facility] Comment on above: Performed By: #### C BC, FE and TIBC, CMP, [id number], OK[place] ####[address] [address] [facility] AST [Catalytic activity/Vol] 13 U/L Normal 13-39 [facility] Comment on above: Performed By: #### C BC, FE and TIBC, CMP, [id number], OK[place] ####[address] [address] [facility] Bilirubin [Mass/Vol] 0.3 mg/dL Normal 0.3-1.0 [facility] Comment on above: Performed By: #### C BC, FE and TIBC, CMP, [id number], OKSANA ####[address] [address] [facility] Calcium [Mass/Vol] 7.4 mg/dL Low 8.6-10.3 [facility] Comment on above: Performed By: #### C BC, FE and TIBC, CMP, [id number], OKSANA ####[address] [address] [facility] Chloride [Moles/Vol] 111 mmol/L High 98-107 [facility] Comment on above: Performed By: #### C BC, FE and TIBC, CMP, [id number], OKSANA ####[address] [address] [facility] CO2 [Moles/Vol] 21.0 mmol/L Normal 21.0-31.0 [facility] Comment on above: Performed By: #### C BC, FE and TIBC, CMP, [id number], OK[place] ####[address] Creatinine [Mass/Vol] 4.44 mg/dL High 0.70-1.[address] [facility] Comment on above: Performed By: #### C BC, FE and TIBC, CMP, [id number], OKSANA ####[address] Creatinine Clr Calc Pharmacy 19.02 [facility] Comment on above: Performed By: #### C BC, FE and TIBC, CMP, [id number], OK[place] ####[address] GFR/1.73 sq M.predicted MDRD (S/P/Bld) [Vol rate/Area] 13.367 mL/min/{1.73_m2} [facility] Comment on above: Performed By: #### C BC, FE and TIBC, CMP, [id number], OK[place] ####[address] Globulin (S) [Mass/Vol] 5.3 g/dL Normal [facility] Comment on above: Performed By: #### C BC, FE and TIBC, CMP, [id number], OKSANA ####[address] Glucose [Mass/Vol] 110 mg/dL High 70-100 [facility] Comment on above: Result Comment: [place] Glucose Reference Range is dependent on time and content of last meal. Glucose of more than 200 mg/dL in a nonstressed, ambulatory subject supports the diagnosis of Diabetes Mellitus. ADA recommended reference range Performed By: #### C BC, FE and TIBC, CMP, [id number], KOSANA ####[address] Potassium [Moles/Vol] 4.5 mmol/L Normal 3.5-5.[address] [facility] Comment on above: Performed By: #### C BC, FE and TIBC, CMP, [id number], OK[place] ####[place] [address] Protein [Mass/Vol] 7.9 g/dL Normal 6.4-8.9 [facility] Comment on above: Performed By: #### C BC, FE and TIBC, CMP, [id number], OKSANA ####[place] [address] [place] [address] [facility] Sodium [Moles/Vol] 140 mmol/L Normal 136-145 [facility] Comment on above: Performed By: #### C BC, FE and TIBC, CMP, [id number], OKSANA ####[facility] [place] [address] [facility] Urea nitrogen [Mass/Vol] 38 mg/dL High 7-25 [facility] Comment on above: Performed By: #### C BC, FE and TIBC, CMP, [id number], OK[place]NA ####[place] [address] [place] [address] [facility] Creatinine [Mass/volume] in Serum or PlasmaOrdered By: Julian Jones on 08-31-2022 Creatinine [Mass/Vol] 4.44 mg/dL 0.70-1.[address] [facility] ECH echo transthoracicon ECH echo transthoracic Normal [facility] Eosinophils Auto (Bld) [#/Vo l]Ordered By: Isamar Mar on 08-31-2022 Eosinophils (Bld) [#/Vol] 0.4 10*3/uL 0.0-0.45 [facility] Eosinophils/100 WBC Auto (Bl d)Ordered By: Isamar Mar on 08-31-2022 Eosinophils/100 WBC (Bld) 3.5 % . [facility] Erythrocyte distribution wid th Auto (RBC) [Ratio]Ordered By: Isamar Mar on 08-31-2022 Erythrocyte distribution width (RBC) [Ratio] 16.8 % 12.0-14.8 [facility] Ferritinon 08-31-2022 Ferritin [Mass/Vol] 685.8 ng/mL High 23.9-336.2 [facility] Comment on above: Performed By: #### C BC, FE and TIBC, CMP, [id number], OKSANA ####[facility] [id number] Ferritin [Mass/volume] in Se rum or PlasmaOrdered By: Yisel Andrade on 08-31-2022 Ferritin [Mass/Vol] 685.8 ng/mL 23.9-336.2 [facility] Folate [Mass/volume] in Seru m or PlasmaOrdered By: Yisel Andrade on 08-31-2022 Folate [Mass/Vol] 32.0 ng/mL >5.9 [facility] Globulin Calc (S) [Mass/Vol] Ordered By: Julian Gilesomar on 08-31-2022 Globulin (S) [Mass/Vol] 5.3 g/dL [facility] Glucose [Mass/volume] in Ser um or PlasmaOrdered By: Obaydah Daromar on 08-31-2022 Glucose [Mass/Vol] 110 mg/dL 70-100 [facility] Hematocrit Auto (Bld) [Volum e fraction]Ordered By: Isamar Mar on 08-31-2022 Hematocrit (Bld) [Volume fraction] 27.1 % 38.8-50.0 [facility] Hemoglobin [Mass/volume] in BloodOrdered By: Isamar Mar on 08-31-2022 Hemoglobin (Bld) [Mass/Vol] 8.7 g/dL 13.0-17.0 [facility] Iron [Mass/volume] in Serum or PlasmaOrdered By: Yisel Andrade on 08-31-2022 Iron [Mass/Vol] 67 ug/dL 50-212 [facility] Iron and TIBC Profileon 08-06 % Iron Saturation 40.6 % Normal 20-50 [facility] Comment on above: Performed By: #### C BC, FE and TIBC, CMP, [id number], OKSANA ####[facility] [id number] Iron [Mass/Vol] 67 ug/dL Normal 50-212 [facility] Comment on above: Performed By: #### C BC, FE and TIBC, CMP, [id number], OKSANA ####[facility] [id number] [place] [address] [facility] Total Iron Binding Capacity 165 ug/dL Low 255-450 [facility] Comment on above: Performed By: #### C BC, FE and TIBC, CMP, [id number], OKSANA ####[facility] [place] [address] [facility] Transferrin [Mass/Vol] 118 mg/dL Low 203-362 [facility] Comment on above: Performed By: #### C BC, FE and TIBC, CMP, [id number], OKSANA ####[facility] [place] [address] [facility] Iron binding capacity [Mass/ volume] in Serum or PlasmaOrdered By: Yisel Andrade on 08-31-2022 Iron binding capacity [Mass/Vol] 165 ug/dL 255-450 [facility] Iron saturation [Mass Fracti on] in Serum or PlasmaOrdered By: Yisel Andrade on 08-31-2022 Iron saturation [Mass fraction] 40.6 % 20-50 [facility] Leukocytes [#/volume] correc lakesha for nucleated erythrocytes in Blood by Automated counOrdered By: Isamar Mar on 08-31-2022 WBC corrected for nucl RBC Auto (Bld) [#/Vol] 11.9 10*3/uL 4.1-10.5 [facility] Lymphocytes Auto (Bld) [#/Vo l]Ordered By: Isamar Mar on 08-31-2022 Lymphocytes (Bld) [#/Vol] 3.9 10*3/uL 1.00-4.8 [facility] Lymphocytes/100 WBC Auto (Bl d)Ordered By: Isamar Mar on 08-31-2022 Lymphocytes/100 WBC (Bld) 32.8 % . [facility] MCH Auto (RBC) [Entitic mass ]Ordered By: Isamar Mar on 08-31-2022 MCH (RBC) [Entitic mass] 29.7 pg 27.5-35.2 [facility] MCHC Auto (RBC) [Mass/Vol]Or dered By: Isamar Mar on 08-31-2022 MCHC (RBC) [Mass/Vol] 32.2 g/dL 32.5-35.[address] [facility] MCV Auto (RBC) [Entitic vol] Ordered By: Isamar Mar on 08-31-2022 MCV (RBC) [Entitic vol] 92.1 fL 83.5-101 [facility] Monocytes Auto (Bld) [#/Vol] Ordered By: Isamar Mar on 08-31-2022 Monocytes (Bld) [#/Vol] 1.0 10*3/uL 0.0-0.8 [facility] Monocytes/100 WBC Auto (Bld) Ordered By: Isamar Mar on 08-31-2022 Monocytes/100 WBC (Bld) 8.4 % . [facility] Neutrophils Auto (Bld) [#/Vo l]Ordered By: Isamar Mar on 08-31-2022 Neutrophils (Bld) [#/Vol] 6.5 10*3/uL 1.8-7.7 [facility] Neutrophils/100 WBC Auto (Bl d)Ordered By: Isamar Mar on 08-31-2022 Neutrophils/100 WBC (Bld) 54.6 % . [facility] No Panel InformationOrdered By: Julian Gilesomaclaire on 08-31-2022 13.367 mL/Min [facility] 19.02 [facility] Nucleated erythrocytes [Pres ence] in Blood by Automated countOrdered By: Isamar Mar on 08-31-2022 Nucleated RBC Auto Ql (Bld) 0.1 /100{WBC} 0-0.5 [facility] Platelet mean volume Auto (B ld) [Entitic vol]Ordered By: Isamar Mar on 08-31-2022 Platelet mean volume (Bld) [Entitic vol] 9.4 fL 6.6-10.1 [facility] Platelets Auto (Bld) [#/Vol] Ordered By: Isamar Mar on 08-31-2022 Platelets (Bld) [#/Vol] 244 10*3/uL 150-450 [facility] Potassium [Moles/volume] in Serum or PlasmaOrdered By: Obaydah Daromar on 08-31-2022 Potassium [Moles/Vol] 4.5 mmol/L 3.5-5.[address] [facility] Protein [Mass/volume] in Ser um or PlasmaOrdered By: Obaydah Daromar on 08-31-2022 Protein [Mass/Vol] 7.9 g/dL 6.4-8.9 [facility] RBC Auto (Bld) [#/Vol]Ordere d By: Isamar Mar on 08-31-2022 RBC (Bld) [#/Vol] 2.94 10*6/uL 3.90-5.60 [facility] Serum or plasma albumin/glob ulin mass ratioOrdered By: Obaydah Daromar on 08-31-2022 Albumin/Globulin [Mass ratio] 0.5 {ratio} [facility] Serum or plasma anion gap de terminationOrdered By: Obaydah Daromar on 08-31-2022 Anion gap [Moles/Vol] 12.5 mmol/L 6.0-15.0 [facility] Sodium [Moles/volume] in Ser um or PlasmaOrdered By: Obaydah Daromar on 08-31-2022 Sodium [Moles/Vol] 140 mmol/L 136-145 [facility] Transferrin [Mass/volume] in Serum or PlasmaOrdered By: Yisel Andrade on 08-31-2022 Transferrin [Mass/Vol] 118 mg/dL 203-362 [facility] Urea nitrogen [Mass/volume] in Serum or PlasmaOrdered By: Obaydah Daromar on 08-31-2022 Urea nitrogen [Mass/Vol] 38 mg/dL 7-25 [facility] Vancomycin [Mass/volume] in Serum or PlasmaOrdered By: Isamar Ponsart on 08-31-2022 Vancomycin [Mass/Vol] 13.8 ug/mL 5.0-20.[address] [facility] Vancomycin,Randomon 09-01-19 Vancomycin,Random 13.8 ug/mL Normal 5.0-20.0 [facility] Comment on above: Order Comment: Date of last dose?: [id number] Time of last dose?: 1650 Result Comment: Last dose: -PERFORMED BY:[place] [address] [address] [place], [place] [phone] MEDICAL DIRECTORCHRISTO PINO M.D. Performed By: #### V ANCR ####[place] [id number] [facility] Vit. B12/Folate Profileon Cobalamin (Vitamin B12) [Mass/Vol] 2487 pg/mL High 180-914 [facility] Comment on above: Performed By: #### C BC, FE and TIBC, CMP, [id number], OKSANA ####[place] [address] [place] [address] [facility] Folate 32.0 ng/mL Normal >5.9 [facility] Comment on above: Result Comment: Yessenia te reference range: >5.9 ng/ml The WHO technical consultation on folate and vitamin b12 deficiencies has determined that folate concentrations less than 4 ng/ml are considered deficient.PERFORMED BY:[place] [address] [address] [place]ITTNYEllenJeanetteM[place], [place] [phone] MEDICAL DIRECTORCHRISTO PINO M.D. Performed By: #### C BC, FE and TIBC, CMP, [id number], OKSANA ####[place] [id number] [facility] Vitamin B12 ser/plasOrdered By: Yisel Andrade on 08-31-2022 Cobalamin (Vitamin B12) [Mass/Vol] 2487 pg/mL 180-914 [facility] WBC Auto (Bld) [#/Vol]Ordere d By: Isamar Mar on 08-31-2022 WBC (Bld) [#/Vol] 11.9 10*3/uL 4.1-10.5 [facility] Bacterial blood cultureOrder ed By: Landon Grullon on 08-30-2022 Bacteria identified Cx Nom (Bld) NO GROWTH 5 DAYS [facility] Basic Metabolic Panelon 05-2 Anion gap [Moles/Vol] 12.3 mmol/L Normal 6.0-15.0 [facility] Comment on above: Performed By: #### C BC, BMP ####[place] [address] [place] [address] [facility] Calcium [Mass/Vol] 7.6 mg/dL Low 8.6-10.3 [facility] Comment on above: Performed By: #### C BC, BMP ####[place] [address] [place] [address] [facility] Chloride [Moles/Vol] 109 mmol/L High 98-107 [facility] Comment on above: Performed By: #### C NETO, BMP ####[place] [address] [place] [address] [facility] CO2 [Moles/Vol] 20.3 mmol/L Low 21.0-31.0 [facility] Comment on above: Performed By: #### C NETO, BMP ####[place] [address] [place] [address] [facility] Creatinine [Mass/Vol] 4.71 mg/dL High 0.70-1.[address] [facility] Comment on above: Performed By: #### C NETO, BMP ####[address] [address] [facility] Creatinine Clr Calc Pharmacy 16.48 [facility] Comment on above: Result Comment: PERF ORMED BY:[address] [place]UELANG[place], [place] [phone] MEDICAL MOOSE PINO M.D. Performed By: #### C NETO, BMP ####[address] [address] [place] GFR/1.73 sq M.predicted MDRD (S/P/Bld) [Vol rate/Area] 12.454 mL/min/{1.73_m2} [facility] Comment on above: Performed By: #### C NETO, BMP ####[address] [address] [facility] Glucose [Mass/Vol] 141 mg/dL High 70-100 [facility] Comment on above: Result Comment: [facility] Glucose Reference Range is dependent on time and content of last meal. Glucose of more than 200 mg/dL in a nonstressed, ambulatory subject supports the diagnosis of Diabetes Mellitus. ADA recommended reference range Performed By: #### C BC, BMP ####[place] [address] [place] [address] [facility] Potassium [Moles/Vol] 4.6 mmol/L Normal 3.5-5.[address] [facility] Comment on above: Performed By: #### C BC, BMP ####[place] [address] [place] [address] [facility] Sodium [Moles/Vol] 137 mmol/L Normal 136-145 [facility] Comment on above: Performed By: #### C BC, BMP ####[place] [id number] [facility] Urea nitrogen [Mass/Vol] 39 mg/dL High 7-25 [facility] Comment on above: Performed By: #### C BC, BMP ####[address] [address] [facility] Blood Cultureon 08-30-2022 Bacteria identified Cx Nom (Bld) No Growth 1 Day PERFORMED BY: [facility] [address] [place] [id number] PATHOLOGIST MEDICAL TERMINOLOGIST CHRISTO PINO M.D. [facility] Comment on above: Performed By: #### C UBLD ####[place] [id number] [facility] Complete Blood Count Auto Di ffon 08-30-2022 Basophils (Bld) [#/Vol] 0.1 10*3/uL Normal 0.0-0.2 [facility] Comment on above: Result Comment: PERF ORMED BY:[place] [address] [place], [place] [phone] MEDICAL DIRECTORCHRISTO PINO M.D. Performed By: #### C BC, BMP ####[place] [address] [place] [address] [facility] Basophils/100 WBC (Bld) 0.5 % Normal . [facility] Comment on above: Performed By: #### C BC, BMP ####[address] [address] [facility] Eosinophils (Bld) [#/Vol] 0.3 10*3/uL Normal 0.0-0.45 [facility] Comment on above: Performed By: #### C BC, BMP ####[place] [id number] [facility] Eosinophils/100 WBC (Bld) 2.5 % Normal . [facility] Comment on above: Performed By: #### C NETO, BMP ####[place] [id number] [facility] Erythrocyte distribution width (RBC) [Ratio] 16.5 % High 12.0-14.8 [facility] Comment on above: Performed By: #### C NETO, BMP ####[place] [id number] [facility] Hematocrit (Bld) [Volume fraction] 28.1 % Low 38.8-50.0 [facility] Comment on above: Performed By: #### C NETO, BMP ####[place] [id number] [facility] Hemoglobin (Bld) [Mass/Vol] 9.0 g/dL Low 13.0-17.0 [facility] Comment on above: Performed By: #### C BC, BMP ####[place] [id number] [facility] Lymphocytes (Bld) [#/Vol] 3.6 10*3/uL Normal 1.00-4.8 [facility] Comment on above: Performed By: #### C BC, BMP ####[place] [id number] [facility] Lymphocytes/100 WBC (Bld) 27.7 % Normal . [facility] Comment on above: Performed By: #### C BC, BMP ####[address] [place] [address] [facility] MCH (RBC) [Entitic mass] 30.2 pg Normal 27.5-35.2 [facility] Comment on above: Performed By: #### C NETO, BMP ####[place] [id number] [facility] MCV (RBC) [Entitic vol] 94.2 fL Normal 83.5-101 [facility] Comment on above: Performed By: #### C NETO, BMP ####[address] Mean Corpuscular HGB Conc 32.1 g/dL Low 32.5-35.6 [facility] Comment on above: Performed By: #### C NETO, BMP ####[address] Monocytes (Bld) [#/Vol] 1.1 10*3/uL High 0.0-0.8 [facility] Comment on above: Performed By: #### C NETO, BMP ####[place] [id number] [facility] Monocytes/100 WBC (Bld) 8.2 % Normal . [facility] Comment on above: Performed By: #### C NETO, BMP ####[place] [id number] [facility] Neutrophils (Bld) [#/Vol] 7.9 10*3/uL High 1.8-7.7 [facility] Comment on above: Performed By: #### C BC, BMP ####[place] [id number] [facility] Neutrophils/100 WBC (Bld) 61.1 % Normal . [facility] Comment on above: Performed By: #### C NETO, BMP ####[place] [id number] [facility] NRBC% 0.2 /100{WBC} Normal 0-0.5 [facility] Comment on above: Performed By: #### C NETO, BMP ####[address] [place] [address] [facility] Platelet mean volume (Bld) [Entitic vol] 10.2 fL High 6.6-10.1 [facility] Comment on above: Performed By: #### C NETO, BMP ####[place] [address] [place] [address] [facility] Platelets (Bld) [#/Vol] 257 10*3/uL Normal 150-450 [facility] Comment on above: Performed By: #### C NETO, BMP ####[address] [address] [facility] RBC (Bld) [#/Vol] 2.98 10*6/uL Low 3.90-5.60 [facility] Comment on above: Performed By: #### C NETO, BMP ####[address] [address] [facility] WBC (Bld) [#/Vol] 13.0 10*3/uL High 4.1-10.5 [facility] Comment on above: Performed By: #### C NETO, BMP ####[address] [address] [facility] Glucose Glucometer (dC) [M ass/Vol]Ordered By: Julian Jones on 08-30-2022 Glucose [Mass/Vol] 320 mg/dL [facility] Glucose Poct Glucometerson 0 08-30-2022 Commemt1 Glu2: Cleaned Meter Normal [facility] Comment on above: Result Comment: PERF ORMED BY:[address] [place], [place] [phone] MEDICAL DIRECTORCHRISTO PINO M.D. Performed By: #### G JERRY ####Point of Care testing, Glucose [Mass/Vol] 320 mg/dL Normal [facility] Comment on above: Result Comment: [facility] Glucose Reference Range is dependent on time and content of last meal. Glucose of more than 200 mg/dL in a nonstressed, ambulatory subject supports the diagnosis of Diabetes Mellitus. Performed By: #### G LULS ####Point of Care testing, Commemt1 Glu2: Cleaned Meter [facility] Comment on above: Result Comment: PERF ORMED BY:[address] INFANTEJeanetteMIGUELANGELAL[place], [place] [phone] MEDICAL DIRECTORCHRISTO PINO M.D. Performed By: #### G LULS ####Point of Care testing, Glucose [Mass/Vol] 167 mg/dL Normal [facility] Comment on above: Result Comment: [place] om Glucose Reference Range is dependent on time and content of last meal. Glucose of more than 200 mg/dL in a nonstressed, ambulatory subject supports the diagnosis of Diabetes Mellitus. Performed By: #### G LULS ####Point of Care testing, Commemt1 Glu2: Cleaned Meter [facility] Comment on above: Result Comment: PERF ORMED BY:[address] [place], [place] [phone] MEDICAL DIRECTORCHRISTO PINO M.D. Performed By: #### G LULS ####Point of Care testing, Glucose [Mass/Vol] 208 mg/dL Normal [facility] Comment on above: Result Comment: [place] om Glucose Reference Range is dependent on time and content of last meal. Glucose of more than 200 mg/dL in a nonstressed, ambulatory subject supports the diagnosis of Diabetes Mellitus. Performed By: #### G LULS ####Point of Care testing, MR foot RT wo conon 08-31-19 MR foot RT wo con Normal [facility] MR lower leg RT wo conon MR lower leg RT wo con Normal [facility] No Panel InformationOrdered By: Julian Jones on 08-30-2022 Glu2: cleaned meter [facility] US renal BIon 08-30-2022 US renal BI Normal [facility] Activated partial thrombopla stin time (aPTT) in platelet poor plasma by coagulation aOrdered By: Iris Dwyer on 08-29-2022 aPTT Coag (PPP) [Time] 28.0 s 25.1-36.5 [facility] Automated erythrocytes count in urine sediment (number/area)Ordered By: Landon Ghoshjahaira on 08-29-2022 RBC Auto (Urine sed) [#/Area] 3-4 [HPF] 0-4 [facility] Automated leukocytes count i n urine sediment (number/area)Ordered By: Landon Ghoshjahaira on 08-29-2022 WBC Auto (Urine sed) [#/Area] 3-4 [HPF] 0-4 [facility] Basic Metabolic Panelon 08-06 Anion gap [Moles/Vol] 13.0 mmol/L Normal 6.0-15.0 [facility] Comment on above: Performed By: #### B MP, LACTIC, CBC ####[facility] [place], [place] [id number] [facility] Calcium [Mass/Vol] 7.8 mg/dL Low 8.6-10.3 [facility] Comment on above: Performed By: #### B MP, LACTIC, CBC ####[address] [place] [address] [facility] Chloride [Moles/Vol] 105 mmol/L Normal 98-107 [facility] Comment on above: Performed By: #### B MP, LACTIC, CBC ####[address] [place] [address] [facility] CO2 [Moles/Vol] 20.4 mmol/L Low 21.0-31.0 [facility] Comment on above: Performed By: #### B MP, LACTIC, CBC ####[facility] [place] [address] [facility] Creatinine [Mass/Vol] 5.00 mg/dL High 0.70-1.[address] [facility] Comment on above: Performed By: #### B MP, LACTIC, CBC ####[address] [place] [address] [place] Creatinine Clr Calc Pharmacy 17.44 Normal [facility] Comment on above: Result Comment: PERF ORMED BY:[address] [place], [place] [phone] MEDICAL DIRECTORCHRISTO PINO M.D. Performed By: #### B MP LACTIC, CBC ####[address] [place] [id number] [facility] GFR/1.73 sq M.predicted MDRD (S/P/Bld) [Vol rate/Area] 11.592 mL/min/{1.73_m2} Normal [facility] Comment on above: Performed By: #### B MP LACTIC, CBC ####[id number] [facility] Glucose [Mass/Vol] 165 mg/dL High 70-100 [facility] Comment on above: Result Comment: [facility] Glucose Reference Range is dependent on time and content of last meal. Glucose of more than 200 mg/dL in a nonstressed, ambulatory subject supports the diagnosis of Diabetes Mellitus. ADA recommended reference range Performed By: #### B MP LACTIC, CBC ####[id number] [facility] Potassium [Moles/Vol] 4.4 mmol/L Normal 3.5-5.[address] [facility] Comment on above: Result Comment: Hemo lysis is present at a level that could interfere with the result. Performed By: #### B MP LACTIC, CBC ####[id number] [facility] Sodium [Moles/Vol] 134 mmol/L Low 136-145 [facility] Comment on above: Performed By: #### B MP LACTIC, CBC ####[id number] [facility] Urea nitrogen [Mass/Vol] 37 mg/dL High 7-25 [facility] Comment on above: Performed By: #### B MP LACTIC, CBC ####[id number] [facility] Bilirubin Test strip Ql (U)O rdered By: Landon Grullon on 08-29-2022 Bilirubin Ql (U) Negative Negative [facility] Color Auto (U)Ordered By: Fr bean Grullon on 08-29-2022 Color (U) Yellow Yellow [facility] Complete Blood Count Auto Di ffon 08-29-2022 Basophils (Bld) [#/Vol] 0.1 10*3/uL Normal 0.0-0.2 [facility] Comment on above: Result Comment: PERF ORMED BY:[address] [place], [place] [phone] MEDICAL DIRECTORCHRISTO PINO M.D. Performed By: #### B MP, LACTIC, CBC ####[address] [address] [facility] Basophils/100 WBC (Bld) 0.6 % Normal . [facility] Comment on above: Performed By: #### B MP, LACTIC, CBC ####[address] [address] [facility] Eosinophils (Bld) [#/Vol] 0.4 10*3/uL Normal 0.0-0.45 [facility] Comment on above: Performed By: #### B MP, LACTIC, CBC ####[address] [address] [facility] Eosinophils/100 WBC (Bld) 3.1 % Normal . [facility] Comment on above: Performed By: #### B MP, LACTIC, CBC ####[address] [address] [facility] Erythrocyte distribution width (RBC) [Ratio] 16.8 % High 12.0-14.8 [facility] Comment on above: Performed By: #### B MP, LACTIC, CBC ####[address] [address] [facility] Hematocrit (Bld) [Volume fraction] 30.1 % Low 38.8-50.0 [facility] Comment on above: Performed By: #### B MP, LACTIC, CBC ####[address] [address] [facility] Hemoglobin (Bld) [Mass/Vol] 9.8 g/dL Low 13.0-17.0 [facility] Comment on above: Performed By: #### B MP, LACTIC, CBC ####[address] Lymphocytes (Bld) [#/Vol] 3.9 10*3/uL Normal 1.00-4.8 [facility] Comment on above: Performed By: #### B MP, LACTIC, CBC ####[address] Lymphocytes/100 WBC (Bld) 31.4 % Normal . [facility] Comment on above: Performed By: #### B MP, LACTIC, CBC ####[address] MCH (RBC) [Entitic mass] 30.4 pg Normal 27.5-35.2 [facility] Comment on above: Performed By: #### B MP, LACTIC, CBC ####[address] MCV (RBC) [Entitic vol] 93.2 fL Normal 83.5-101 [facility] Comment on above: Performed By: #### B MP, LACTIC, CBC ####[address] Mean Corpuscular HGB Conc 32.6 g/dL Normal 32.5-35.6 [facility] Comment on above: Performed By: #### B MP, LACTIC, CBC ####[address] Monocytes (Bld) [#/Vol] 1.1 10*3/uL High 0.0-0.8 [facility] Comment on above: Performed By: #### B MP, LACTIC, CBC ####[address] Monocytes/100 WBC (Bld) 19.10 % Normal 0.00-20.00 [facility] Comment on above: Performed By: #### B MP, LACTIC, CBC ####[address] Monocytes/100 WBC (Bld) 8.8 % Normal . [facility] Comment on above: Performed By: #### B MP, LACTIC, CBC ####[address] Neutrophils (Bld) [#/Vol] 7.0 10*3/uL Normal 1.8-7.7 [facility] Comment on above: Performed By: #### B MP, LACTIC, CBC ####[address] Neutrophils/100 WBC (Bld) 56.1 % Normal . [facility] Comment on above: Performed By: #### B MP, LACTIC, CBC ####[address] NRBC% 0.0 /100{WBC} Normal 0-0.5 [facility] Comment on above: Performed By: #### B MP, LACTIC, CBC ####[address] Platelet mean volume (Bld) [Entitic vol] 10.3 fL High 6.6-10.1 [facility] Comment on above: Performed By: #### B MP, LACTIC, CBC ####[address] Platelets (Bld) [#/Vol] 291 10*3/uL Normal 150-450 [facility] Comment on above: Performed By: #### B MP, LACTIC, CBC ####[address] RBC (Bld) [#/Vol] 3.23 10*6/uL Low 3.90-5.60 [facility] Comment on above: Performed By: #### B MP, LACTIC, CBC ####[address] WBC (Bld) [#/Vol] 12.5 10*3/uL High 4.1-10.5 [facility] Comment on above: Performed By: #### B MP, LACTIC, CBC ####[facility] [address] [place] [address] [place] Dipstick and Microscopicon 0 08-29-2022 Appearance (U) Clear Normal Clear [facility] Comment on above: Order Comment: Name Collection Type:: Sanchez Catheter Performed By: #### A DDONUAPLUS ####[address] [address] [facility] Bacteria,Urine None Seen Normal None Seen [facility] Comment on above: Order Comment: Name Collection Type:: Sanchez Catheter Performed By: #### A DDONUAPLUS ####[address] [address] [facility] Bilirubin,Urine Negative Normal Negative [facility] Comment on above: Order Comment: Name Collection Type:: Sanchez Catheter Performed By: #### A DDONUAPLUS ####[address] [address] [facility] Color (U) Yellow Normal Yellow [facility] Comment on above: Order Comment: Name Collection Type:: Sanchez Catheter Performed By: #### A DDONUAPLUS ####[address] [address] [facility] Glucose Ql (U) Normal Normal Normal [facility] Comment on above: Order Comment: Name Collection Type:: Sanchez Catheter Performed By: #### A DDONUAPLUS ####[address] [address] [facility] Hyaline Casts,Urine 0-8 Normal 0-8 [facility] Comment on above: Order Comment: Name Collection Type:: Sanchez Catheter Result Comment: PERF ORMED BY:[address] [place], [place] [phone] MEDICAL MOOSE PINO M.D. Performed By: #### A DDONUAPLUS ####[address] [address] [facility] Ketones Ql (U) Negative Normal Negative [facility] Comment on above: Order Comment: Name Collection Type:: Sanchez Catheter Performed By: #### A DDONUAPLUS ####[address] [place] [address] [facility] Leukocyte esterase Test strip Ql (U) Negative Normal Negative [facility] Comment on above: Order Comment: Name Collection Type:: Sanchez Catheter Performed By: #### A DDONUAPLUS ####[address] [address] [facility] Nitrite,Urine Negative Normal Negative [facility] Comment on above: Order Comment: Name Collection Type:: Sanchez Catheter Performed By: #### A DDONUAPLUS ####[address] [address] [facility] Occult Blood,Urine Trace High Negative [facility] Comment on above: Order Comment: Name Collection Type:: Sanchez Catheter Result Comment: PERF ORMED BY:[address] [place], [place] [phone] MEDICAL DIRECTORCHRISTO PINO M.D. Performed By: #### A DDONUAPLUS ####[address] [address] [facility] pH (U) 5.5 [pH] Normal 5.0-9.0 [facility] Comment on above: Order Comment: Name Collection Type:: Sanchez Catheter Performed By: #### A DDONUAPLUS ####[address] [address] [facility] Protein (U) [Mass/Vol] 300 mg/dL High Negative [facility] Comment on above: Order Comment: Name Collection Type:: Sanchez Catheter Performed By: #### A DDONUAPLUS ####[address] [address] [facility] RBC,Urine 3-4 Normal 0-4 [facility] Comment on above: Order Comment: Name Collection Type:: Sanchez Catheter Performed By: #### A DDONUAPLUS ####[address] [address] [facility] Specificy [place],Urine 1.015 Normal 1.001-1.030 [facility] Comment on above: Order Comment: Name Collection Type:: Sanchez Catheter Performed By: #### A DDONUAPLUS ####[facility] [address] [place] [address] [facility] Squamous Epithelial Cell,Urine 1-2 Normal 0-2 [facility] Comment on above: Order Comment: Name Collection Type:: Sanchez Catheter Performed By: #### A DDONUAPLUS ####[address] [place] [address] [facility] Urobilinogen,Urine Normal Normal Normal [facility] Comment on above: Order Comment: Name Collection Type:: Sanchez Catheter Performed By: #### A DDONUAPLUS ####[address] [place] [address] [facility] WBC,Urine 3-4 Normal 0-4 [facility] Comment on above: Order Comment: Name Collection Type:: Sanchez Catheter Performed By: #### A DDONUAPLUS ####[address] [address] [facility] Glucose Poct Glucometerson 0 08-29-2022 Glucose [Mass/Vol] 149 mg/dL Normal [facility] Comment on above: Result Comment: [place] [facility] Glucose Reference Range is dependent on time and content of last meal. Glucose of more than 200 mg/dL in a nonstressed, ambulatory subject supports the diagnosis of Diabetes Mellitus.PERFORMED BY:[address] [place], [place] [phone] MEDICAL DIRECTORCHRISTO PINO M.D. Performed By: #### G JERRY ####Point of Care testing, Commemt1 Glu2: Cleaned Meter Normal [facility] Comment on above: Result Comment: PERF ORMED BY:[address] [place] [phone] MEDICAL DIRECTORCHRISTO PINO M.D. Performed By: #### G LULS ####Point of Care testing, Glucose [Mass/Vol] 200 mg/dL Normal [facility] Comment on above: Result Comment: [place] [facility] Glucose Reference Range is dependent on time and content of last meal. Glucose of more than 200 mg/dL in a nonstressed, ambulatory subject supports the diagnosis of Diabetes Mellitus. Performed By: #### G LULS ####Point of Care testing, Ketones Auto test strip (U) [Mass/Vol]Ordered By: Landon Grullon on 08-29-2022 Ketones (U) [Mass/Vol] Negative Negative [facility] Lactate [Moles/volume] in Se rum or PlasmaOrdered By: Iris Dwyer on 08-29-2022 Lactate [Moles/Vol] 1.8 mmol/L 0.5-2.2 [facility] Lactic Acidon 08-29-2022 Lactate [Moles/Vol] 1.8 mmol/L Normal 0.5-2.2 [facility] Comment on above: Result Comment: PERF ORMED BY:[address] [place] [phone] MEDICAL DIRECTORCHRISTO PINO M.D. Performed By: #### B MP, LACTIC, CBC ####[facility] [place] [address] [facility] Monocyte distribution width [Entitic volume] in Blood by AutomatedOrdered By: Iris Dwyer on 08-29-2022 Monocyte distribution width Auto (Bld) [Entitic vol] 19.10 % 0.00-20.00 [facility] Nitrite Test strip Ql (U)Ord ered By: Landon Grullon on 08-29-2022 Nitrite Ql (U) Negative Negative [facility] No Panel InformationOrdered By: Landon Grullon on 08-29-2022 0-8 [LPF] 0-8 [facility] No Panel InformationOrdered By: Iris Dwyer on 08-29-2022 13.7 s 9.0-12.9 [facility] Partial Thromboplastin Timeo n 08-29-2022 aPTT Coag (Bld) [Time] 28.0 s Normal 25.1-36.5 [facility] Comment on above: Result Comment: PERF ORMED BY:[address] [place], [place] [phone] MEDICAL DIRECTORCHRISTO PINO M.D. Performed By: #### P T, PTT ####[address] [place] [id number] [facility] Platelet poor plasma interna tional normalized ratio (INR) by coagulation assay (relatOrdered By: Iris Dwyer on 08-29-2022 INR Coag (PPP) [Relative time] 1.2 {INR} [facility] Protein Auto test strip (U) [Mass/Vol]Ordered By: Lnadon Grullon on 08-29-2022 Protein (U) [Mass/Vol] 300 mg/dL Negative Fi [facility] Prothrombin Time INRon 08-29 INR Coag (PPP) [Relative time] 1.2 {INR} Normal [facility] Comment on above: Result Comment: INR Therapeutic Range A) Pre- and Peroperative OAT started two weeks before surgery. NOT HIP SURGERY: 1.5 - 2.5 HIP SURGERY: 2 - 3 B) Primary and secondary prevention of venous THROMBOSIS: 2 - 3 C) Active venous thrombosis, pulmonary embolism and prevention of recurrent venous thrombosis: 2 - 3 D) Prevention of arterial thromboembolism including patients with mechanical heart valves: 3 - 4.5 Performed By: #### P T, PTT ####[id number] [facility] PT Coag (PPP) [Time] 13.7 s High 9.0-12.9 [facility] Comment on above: Performed By: #### P T, PTT ####[address] [id number] [facility] Specific gravity Auto test s trip (U) [Rel density]Ordered By: Landon Grullon on 08-29-2022 Specific gravity (U) [Rel density] 1.015 1.001-1.030 [facility] Squamous epithelial cells de tection in urine sediment by light microscopyOrdered By: Landon Grullon on 08-29-2022 Epithelial cells.squamous LM Ql (Urine sed) 1-2 [HPF] 0-2 [facility] Urine bacteria detection by automated methodOrdered By: Landon Grullon on 08-29-2022 Bacteria Auto Ql (U) None seen None Seen [facility] Urine clarity by refractomet ry automatedOrdered By: Landon Grullon on 08-29-2022 Clarity Refractometry automated (U) Clear Clear [facility] Urine glucose measurement by automated test strip (mass/volume)Ordered By: Landon Grullon on 08-29-2022 Glucose Auto test strip (U) [Mass/Vol] Normal mg/dL Normal [facility] Urine hemoglobin detection b y automated test stripOrdered By: Landon Grullon on 08-29-2022 Hemoglobin Auto test strip Ql (U) Trace Negative [facility] Urine leukocyte esterase det ection by automated test stripOrdered By: Landon Grullon on 08-29-2022 Leukocyte esterase Auto test strip Ql (U) Negative Negative [facility] Urobilinogen Auto test strip (U) [Mass/Vol]Ordered By: Landon Grullon on 08-29-2022 Urobilinogen (U) [Mass/Vol] Normal mg/dL Normal [facility] Vancomycin,Randomon 08-30-19 Vancomycin,Random 10.1 ug/mL Normal 5.0-20.0 [facility] Comment on above: Order Comment: Date of last dose?: [id number] Time of last dose?: 1400 Result Comment: Last dose: -PERFORMED BY:[facility] [place], [place] [phone] MEDICAL DIRECTORCHRISTO PINO M.D. Performed By: #### V ANCR ####[facility] [address] [place] [address] [facility] pH Auto test strip (U)Ordere d By: Landon Grullon on 08-29-2022 pH (U) 5.5 [pH] 5.0-9.0 [facility] Bacteria identified Cx Nom ( Bld)Ordered By: Srinivas Aguilar on 08-27-2022 Bacterial blood culture Methicillin Resi s Staph Aureus [facility] Bacterial blood cultureOrder ed By: Srinivas Aguilar on 08-27-2022 Bacteria identified Cx Nom (Bld) NO GROWTH 5 DAYS [facility] Basic Metabolic Panelon 05-2 Anion gap [Moles/Vol] 14.8 mmol/L Normal 6.0-15.0 [facility] Comment on above: Performed By: #### B SHREYA HARRIS, CBC ####[address] [place] [address] [facility] Calcium [Mass/Vol] 7.9 mg/dL Low 8.6-10.3 [facility] Comment on above: Performed By: #### B SHREYA HARRIS, CBC ####[address] [place] [address] [facility] Chloride [Moles/Vol] 102 mmol/L Normal 98-107 [facility] Comment on above: Performed By: #### B SHREYA HARRIS, CBC ####[address] [address] [facility] CO2 [Moles/Vol] 22.3 mmol/L Normal 21.0-31.0 [facility] Comment on above: Performed By: #### B SHREYA HARRIS, CBC ####[address] [address] [facility] Creatinine [Mass/Vol] 4.95 mg/dL High 0.70-1.[address] [facility] Comment on above: Performed By: #### B SHREYA HARRIS, CBC ####[address] [address] [facility] Creatinine Clr Calc Pharmacy 17.55 Normal [facility] Comment on above: Result Comment: PERF ORMED BY:[address] [place], [place] [phone] MEDICAL MOOSE PINO M.D. Performed By: #### B SHREYA HARRIS, CBC ####[address] [address] [place] GFR/1.73 sq M.predicted MDRD (S/P/Bld) [Vol rate/Area] 11.732 mL/min/{1.73_m2} Normal [facility] Comment on above: Performed By: #### B SHREYA HARRIS, CBC ####[facility] [place] [address] [facility] Glucose [Mass/Vol] 202 mg/dL High 70-100 [facility] Comment on above: Result Comment: [place] Glucose Reference Range is dependent on time and content of last meal. Glucose of more than 200 mg/dL in a nonstressed, ambulatory subject supports the diagnosis of Diabetes Mellitus. ADA recommended reference range Performed By: #### B SHREYA HARRIS, CBC ####[facility] [place] [address] [facility] Potassium [Moles/Vol] 4.1 mmol/L Normal 3.5-5.[address] [facility] Comment on above: Performed By: #### B SHREYA HARRIS, CBC ####[address] [id number] [facility] Sodium [Moles/Vol] 135 mmol/L Low 136-145 [facility] Comment on above: Performed By: #### B SHREYA HARRIS, CBC ####[address] [address] [facility] Urea nitrogen [Mass/Vol] 39 mg/dL High 7-25 [facility] Comment on above: Performed By: #### B SHREYA HARRIS, CBC ####[facility] [place] [address] [facility] Basophils Auto (Bld) [#/Vol] Ordered By: Srinivas Aguilar on 08-27-2022 Basophils (Bld) [#/Vol] 0.1 10*3/uL 0.0-0.2 [facility] Basophils/100 WBC Auto (Bld) Ordered By: Srinivas Aguilar on 08-27-2022 Basophils/100 WBC (Bld) 0.4 % . [facility] Blood Cultureon 08-27-2022 Bacteria identified Cx Nom (Bld) Normal [facility] Comment on above: Performed By: #### B SHREYA HARRIS, CBC ####[id number] [facility] Bacteria identified Cx Nom (Bld) No Growth 4 Days PERFORMED BY: [facility] [address] [place] [address] PATHOLOGIST MEDICAL TERMINOLOGIST CHRISTO PINO M.D. Normal [facility] Comment on above: Performed By: #### B SHREYA HARRIS, CBC ####[id number] [facility] Calcium [Mass/volume] in Ser um or PlasmaOrdered By: Srinivas Aguilar on 08-27-2022 Calcium [Mass/Vol] 7.9 mg/dL 8.6-10.3 [facility] Carbon dioxide, total [Moles /volume] in Serum or PlasmaOrdered By: Srinivas Aguilar on 08-27-2022 CO2 [Moles/Vol] 22.3 mmol/L 21.0-31.0 [facility] Chloride [Moles/volume] in S leti or PlasmaOrdered By: Srinivas Aguilar on 08-27-2022 Chloride [Moles/Vol] 102 mmol/L 98-107 [facility] Complete Blood Count Auto Di ffon 08-27-2022 Basophils (Bld) [#/Vol] 0.1 10*3/uL Normal 0.0-0.2 [facility] Comment on above: Result Comment: PERF ORMED BY:[facility] [place], [place] [phone] MEDICAL DIRECTORCHRISTO PINO M.D. Performed By: #### B SHREYA HARRIS, CBC ####[id number] [place] Basophils/100 WBC (Bld) 0.4 % Normal . [facility] Comment on above: Performed By: #### B SHREYA HARRIS, CBC ####[address] [address] [place] Eosinophils (Bld) [#/Vol] 0.4 10*3/uL Normal 0.0-0.45 [facility] Comment on above: Performed By: #### B SHREYA HARRIS, CBC ####[id number] [place] Eosinophils/100 WBC (Bld) 2.8 % Normal . [facility] Comment on above: Performed By: #### B SHREYA HARRIS, CBC ####[address] Erythrocyte distribution width (RBC) [Ratio] 16.8 % High 12.0-14.8 [facility] Comment on above: Performed By: #### B SHREYA HARRIS, CBC ####[address] Hematocrit (Bld) [Volume fraction] 28.4 % Low 38.8-50.0 [facility] Comment on above: Performed By: #### B SHREYA HARRIS, CBC ####[address] Hemoglobin (Bld) [Mass/Vol] 9.2 g/dL Low 13.0-17.0 [facility] Comment on above: Performed By: #### B SHREYA HARRIS, CBC ####[address] Lymphocytes (Bld) [#/Vol] 4.5 10*3/uL Normal 1.00-4.8 [facility] Comment on above: Performed By: #### B SHREYA HARRIS, CBC ####[address] Lymphocytes/100 WBC (Bld) 33.0 % Normal . [facility] Comment on above: Performed By: #### B SHREYA HARRIS, CBC ####[address] MCH (RBC) [Entitic mass] 30.7 pg Normal 27.5-35.2 [facility] Comment on above: Performed By: #### B SHREYA HARRIS, CBC ####[address] MCV (RBC) [Entitic vol] 94.9 fL Normal 83.5-101 [facility] Comment on above: Performed By: #### B SHREYA HARRIS, CBC ####[facility] [place] [address] [facility] Mean Corpuscular HGB Conc 32.4 g/dL Low 32.5-35.6 [facility] Comment on above: Performed By: #### B SHREYA HARRIS, CBC ####[address] [address] [facility] Monocytes (Bld) [#/Vol] 1.2 10*3/uL High 0.0-0.8 [facility] Comment on above: Performed By: #### B SHREYA HARRIS, CBC ####[address] [address] [facility] Monocytes/100 WBC (Bld) 20.44 % High 0.00-20.00 [facility] Comment on above: Result Comment: For adults in ED, MDW > 20.0 may be associated with a higher risk of sepsis during the first 12 hrs of hospital admission Performed By: #### B SHREYA HARRIS, CBC ####[address] [address] [facility] Monocytes/100 WBC (Bld) 8.6 % Normal . [facility] Comment on above: Performed By: #### B SHREYA HARRIS, CBC ####[address] [address] [facility] Neutrophils (Bld) [#/Vol] 7.5 10*3/uL Normal 1.8-7.7 [facility] Comment on above: Performed By: #### B SHREYA HARRIS, CBC ####[address] [address] [facility] Neutrophils/100 WBC (Bld) 55.2 % Normal . [facility] Comment on above: Performed By: #### B SHREYA HARRIS, CBC ####[address] [address] [facility] NRBC% 0.1 /100{WBC} Normal 0-0.5 [facility] Comment on above: Performed By: #### B SHREYA HARRIS, CBC ####[address] [place] [address] [place] Platelet mean volume (Bld) [Entitic vol] 9.6 fL Normal 6.6-10.1 [facility] Comment on above: Performed By: #### B SHREYA HARRIS, CBC ####[place] [address] Platelets (Bld) [#/Vol] 277 10*3/uL Normal 150-450 [facility] Comment on above: Performed By: #### B SHREYA HARRIS, CBC ####[address] RBC (Bld) [#/Vol] 2.99 10*6/uL Low 3.90-5.60 [facility] Comment on above: Performed By: #### B SHREYA HARRIS, CBC ####[address] WBC (Bld) [#/Vol] 13.7 10*3/uL High 4.1-10.5 [facility] Comment on above: Performed By: #### B SHREYA HARRIS, CBC ####[address] Creatinine [Mass/volume] in Serum or PlasmaOrdered By: Srinivas Aguilar on 08-27-2022 Creatinine [Mass/Vol] 4.95 mg/dL 0.70-1.[address] [facility] Eosinophils Auto (Bld) [#/Vo l]Ordered By: Srinivas Aguilar on 08-27-2022 Eosinophils (Bld) [#/Vol] 0.4 10*3/uL 0.0-0.45 [facility] Eosinophils/100 WBC Auto (Bl d)Ordered By: Srinivas Aguilar on 08-27-2022 Eosinophils/100 WBC (Bld) 2.8 % . [facility] Erythrocyte distribution wid th Auto (RBC) [Ratio]Ordered By: Srinivas Aguilar on 08-27-2022 Erythrocyte distribution width (RBC) [Ratio] 16.8 % 12.0-14.8 [facility] Glucose [Mass/volume] in Ser um or PlasmaOrdered By: Srinivas Aguilar on 08-27-2022 Glucose [Mass/Vol] 202 mg/dL 70-100 [facility] Hematocrit Auto (Bld) [Volum e fraction]Ordered By: Srinivas Aguilar on 08-27-2022 Hematocrit (Bld) [Volume fraction] 28.4 % 38.8-50.0 [facility] Hemoglobin [Mass/volume] in BloodOrdered By: Srinivas Aguilar on 08-27-2022 Hemoglobin (Bld) [Mass/Vol] 9.2 g/dL 13.0-17.0 [facility] Lactate [Moles/volume] in Se rum or PlasmaOrdered By: Srinivas Aguilar on 08-27-2022 Lactate [Moles/Vol] 2.3 mmol/L 0.5-2.2 [facility] Lactic Acidon 08-27-2022 Lactate [Moles/Vol] 2.3 mmol/L Off scale high 0.5-2.2 [facility] Comment on above: Order Comment: Unacc eptable specimen due to hemolysis. Redraw reordered. Result Comment: Crit ical Result : Called to and read back by: BETH DÍAZ at: 08/27/2022 13:58:03 by:[id number] BY:[id number] [place] [address] [place], [place] [phone] MEDICAL DIRECTORCHRISTO PINO M.D. Performed By: #### L ACTIC ####[facility] [place] [address] [facility] Leukocytes [#/volume] correc lakesha for nucleated erythrocytes in Blood by Automated counOrdered By: Srinivas Aguilar on 08-27-2022 WBC corrected for nucl RBC Auto (Bld) [#/Vol] 13.7 10*3/uL 4.1-10.5 [facility] Lymphocytes Auto (Bld) [#/Vo l]Ordered By: Srinivas Aguilar on 08-27-2022 Lymphocytes (Bld) [#/Vol] 4.5 10*3/uL 1.00-4.8 [facility] Lymphocytes/100 WBC Auto (Bl d)Ordered By: Srinivas Aguilar on 08-27-2022 Lymphocytes/100 WBC (Bld) 33.0 % . [facility] MCH Auto (RBC) [Entitic mass ]Ordered By: Srinivas Aguilar on 08-27-2022 MCH (RBC) [Entitic mass] 30.7 pg 27.5-35.2 [facility] MCHC Auto (RBC) [Mass/Vol]Or dered By: Srinivas Aguilar on 08-27-2022 MCHC (RBC) [Mass/Vol] 32.4 g/dL 32.5-35.[address] [facility] MCV Auto (RBC) [Entitic vol] Ordered By: Srinivas Aguilar on 08-27-2022 MCV (RBC) [Entitic vol] 94.9 fL 83.5-101 [facility] Monocyte distribution width [Entitic volume] in Blood by AutomatedOrdered By: Srinivas Aguilar on 08-27-2022 Monocyte distribution width Auto (Bld) [Entitic vol] 20.44 % 0.00-20.00 [facility] Monocytes Auto (Bld) [#/Vol] Ordered By: Srinivas Aguilar on 08-27-2022 Monocytes (Bld) [#/Vol] 1.2 10*3/uL 0.0-0.8 [facility] Monocytes/100 WBC Auto (Bld) Ordered By: Srinivas Aguilar on 08-27-2022 Monocytes/100 WBC (Bld) 8.6 % . [facility] Neutrophils Auto (Bld) [#/Vo l]Ordered By: Srinivas Aguilar on 08-27-2022 Neutrophils (Bld) [#/Vol] 7.5 10*3/uL 1.8-7.7 [facility] Neutrophils/100 WBC Auto (Bl d)Ordered By: Srinivas Aguilar on 08-27-2022 Neutrophils/100 WBC (Bld) 55.2 % . [facility] No Panel InformationOrdered By: Srinivas Aguilar on 08-27-2022 11.732 mL/Min [facility] 17.55 [facility] Nucleated erythrocytes [Pres ence] in Blood by Automated countOrdered By: Srinivas Aguilar on 08-27-2022 Nucleated RBC Auto Ql (Bld) 0.1 /100{WBC} 0-0.5 [facility] Platelet mean volume Auto (B ld) [Entitic vol]Ordered By: Srinivas Aguilar on 08-27-2022 Platelet mean volume (Bld) [Entitic vol] 9.6 fL 6.6-10.1 [facility] Platelets Auto (Bld) [#/Vol] Ordered By: Srinivas Aguilar on 08-27-2022 Platelets (Bld) [#/Vol] 277 10*3/uL 150-450 [facility] Potassium [Moles/volume] in Serum or PlasmaOrdered By: Srinivas Aguilar on 08-27-2022 Potassium [Moles/Vol] 4.1 mmol/L 3.5-5.[address] [facility] RBC Auto (Bld) [#/Vol]Ordere d By: Srinivas Aguilar on 08-27-2022 RBC (Bld) [#/Vol] 2.99 10*6/uL 3.90-5.60 [facility] Serum or plasma anion gap de terminationOrdered By: Srinivas Aguilar on 08-27-2022 Anion gap [Moles/Vol] 14.8 mmol/L 6.0-15.0 [facility] Sodium [Moles/volume] in Ser um or PlasmaOrdered By: Srinivas Aguilar on 08-27-2022 Sodium [Moles/Vol] 135 mmol/L 136-145 [facility] Urea nitrogen [Mass/volume] in Serum or PlasmaOrdered By: Srinivas Aguilar on 08-27-2022 Urea nitrogen [Mass/Vol] 39 mg/dL 7-25 [facility] WBC Auto (Bld) [#/Vol]Ordere d By: Srinivas Aguilar on 08-27-2022 WBC (Bld) [#/Vol] 13.7 10*3/uL 4.1-10.5 [facility] XR foot RT min 3V*on 023 XR foot RT min 3V* Normal [facility] Bacteria identified Aer cx N om (Unsp spec)Ordered By: Mervat Santiago on 08-20-2022 Aerobic culture Pseudomonas aerugino sa (MDRO) [facility] Aerobic culture Pseudomonas aerugino sa (MDRO)#2 [facility] Superficial Wound Cultureon 08-20-2022 Superficial Wound Culture Normal [facility] Comment on above: Performed By: #### C USUP ####[facility] [address] [place] [address] [facility] Group Home Recordson 08-12 [facility] Home Records [id number]#1.00C D:127 Normal [facility] Group Home Recordson 08-02 [facility] Records [id number]#1.00 CD:127 Normal [facility] Screenson 08-02-2022 Screens [id number]#1.00 CD:127 [facility] Screens [id number]#1.00C D:127 Normal [facility] Group Home Recordson 08-01 Group Home Records [id number]#1.00C D:127 Normal [facility] Patient Educationon 08-02-19 Patient Education Urology Hydronephrosis Hydronephrosis is the swelling of one or both kidneys due to a blockage that stops urine from flowing out of the body. Kidneys filter waste from the blood and produce urine. This condition can lead to kidney failure and may become life-threatening if not treated promptly. What are the causes? In infants and children, common causes include problems that occur when a baby is developing in the womb. These can include problems in the kidneys or in the tubes that drain urine into the bladder (ureters). In adults, common causes include: ? Kidney stones. ? . ? A tumor or cyst in the abdomen or pelvis. ? An enlarged prostate gland. Other causes include: ? Bladder infection. ? Scar tissue from a previous surgery or injury. ? A blood clot. ? Cancer of the prostate, bladder, uterus, ovary, or colon. What are the signs or symptoms? Symptoms of this condition include: ? Pain or discomfort in your side (flank) or abdomen. ? Swelling in your abdomen. ? Nausea and vomiting. ? Fever. ? Pain when passing urine. ? Feelings of urgency when you need to urinate. ? Urinating more often than normal. In some cases, you may not have any symptoms. How is this diagnosed? This condition may be diagnosed based on: ? Your symptoms and medical history. ? A physical exam. ? Blood and urine tests. ? Imaging tests, such as an ultrasound, CT scan, or MRI. ? A procedure to look at your urinary tract and bladder by inserting a scope into the urethra (cystoscopy). How is this treated? Treatment for this condition depends on where the blockage is, how long it has been there, and what caused it. The goal of treatment is to remove the blockage. Treatment may include: ? Antibiotic medicines to treat or prevent infection. ? A procedure to place a small, thin tube (stent) into a blocked ureter. The stent will keep the ureter open so that urine can drain through it. ? A nonsurgical procedure that crushes kidney stones with shock waves (extracorporeal shock wave lithotripsy). ? If kidney failure occurs, treatment may include dialysis or a kidney transplant. Follow these instructions at home: ? Take qqxl-qqn-iqbjvqv and prescription medicines only as told by your health care provider. ? If you were prescribed an antibiotic medicine, take it exactly as told by your health care provider. Do not stop taking the antibiotic even if you start to feel better. ? Rest and return to your normal activities as told by your health care provider. Ask your health care provider what activities are safe for you. ? Drink enough fluid to keep your urine pale yellow. ? Keep all follow-up visits. This is important. Contact a health care provider if: ? You continue to have symptoms after treatment. ? You develop new symptoms. ? Your urine becomes cloudy or bloody. ? You have a fever. Get help right away if: ? You have severe flank or abdominal pain. ? You cannot drink fluids without vomiting. Summary ? Hydronephrosis is the swelling of one or both kidneys due to a blockage that stops urine from flowing out of the body. ? Hydronephrosis can lead to kidney failure and may become life-threatening if not treated promptly. ? The goal of treatment is to remove the blockage. It may include a procedure to insert a stent into a blocked ureter, a procedure to break up kidney stones, or taking antibiotic medicines. ? Follow your health care provider's instructions for taking care of yourself at home, including instructions about drinking fluids, taking medicines, and limiting activities. This information is not intended to replace advice given to you by your health care provider. Make sure you discuss any questions you have with your health care provider. Document Revised: 07/11/2020 Document Reviewed: 07/11/2020 [employer]Public[employer] Patient Education ? 2022 [employer] [facility] Urology Office/Clinic Noteon 08-01-2022 Urology Office/Clinic Note Chief Complaint f/u w/CBC HPI Staff Simon is a 72 y/o male here for a f/u w/CBC. CBC done 07/18/2022. IR exchange Neph tube done 07/01/2022 and 07/17/2022. CT done 07/17/2022.previous DX: BPH with urinary obstruction, frequency of urination, history of kidney stones, nocturia, post-void dribbling, urgency of urination, urinary retention. Pts currently taking Flomax 0.4mg. S/P cysto 04/09/22. Dysuria: _denies Incomplete bladder emptying: _denies Hematuria: _denies Frequency: _every 1hr 30min Urgency: _denies Nocturia: _2x Stream: _steady Leaking: _denies Post void dripping: _denies Wearing pads/ Depends: _denies Urge incontinence: _denies Stress incontinence: _denies Incontinence without Sensory Awareness: _denies Abdominal pain: _denies Flank pain: _denies Sexual complaints: _ History of Present Illness Tests reviewed: reviewed UA, external labs and notes I have reviewed the previous health record information and history for this patient from Dr. Corbett, IR- [facility] I have reviewed and verified the staff HPI to be accurate for this encounter. There have been no associated fever, chills, flank pain. Denies any urinary infections since last encounter. Review of Systems PHQ Score Initial Depression Screen Score: 0 ROS - Provider Constitutional: denies weight loss, denies hot flashes. Eyes: denies eye problems. Gastrointestinal: denies nausea, denies vomiting. Cardiovascular: denies chest pain or angina. Integumentary: no dryness Musculoskeletal: denies musculoskeletal symptoms. ENMT: denies otolaryngeal symptoms. Respiratory: no shortness of breath. Heme/Lymph: severe easy bleeding tendency, severe easy bruising tendency. Psychiatric: no confusion, no anxiety. Genitourinary: See HPI. Physical Exam Vitals & Measurements HT: 74 in HT: 187 cm General Appearance: alert, no distress, well nourished, well developed male. Wheelchair bound Genitourinary: Flank Pain: none. Left nephrostomy tube in place with scant clear yellow urine in bag. Bladder: nonpalpable. Assessment/Plan 1. Hydronephrosis (N13.1: Hydronephrosis with ureteral stricture, not elsewhere classified) 12/05/21: Crea 3.38. eGFR AA 22. BUN 37. 01/11/22: Crea 3.84. eGFR AA 19. 04/09/22: Crea 4.7. eGFR AA 15. 06/04/22: Crea 4.6. eGFR AA 15. (after L NT placement) 07/25/22 - Crea 4.7. eGFR AA 15. S/p IR placement of L neph tube done 05/06/22 - purulent output, Cx proteus, treated with keflex x 2 wks, refused IV abx and admission. IR exchange Neph tube done 07/01/22 and 07/17/22 -due to significant hematuria/clots in NT. Unable to internalize stent due to severe ureteral stricture. CT AP wo con 07/17/22 [facility] - L PCN tube. Nonobstructing stone in L renal collecting system. Gas and hyperattenuating material w/in the L renal collecting system which is new compared to prior exam, may be secondary to PCN tube. Persistent hydronephrosis and proximal hydroureter on the L. Stopped Plavix. No longer bleeding from NT x 1 week. Per pt, bag fills less than 50 cc per day. Kidney fxn has not improved after NT placement. Discussed risks/benefits of nephrostomy tube removal including recurrent infection versus recurrent hematuria if neph tube exchanges were continued every 2 to 3 months. Plan: Patient elected to proceed with removal of nephrostomy tube. If infection recurs we will replace left nephrostomy tube and continue routine exchanges -Left nephrostomy tube removed IO today without difficulty. Pressure applied with excellent hemostasis. . -Order for Keflex 500 mg bid x 3 days sent for neph tube removal prophylaxis -Pt has been instructed to call the office in the event that they are not able to void in the next 4-6 hrs. Advised pt. to go to the ER if they experience any severe bleeding, fever over 101, and/or shaking chills. -Follow up 2 mos with BMP or sooner if needed. Pt understands and agrees with plan. 2. Ureteral stricture (N13.5: Crossing vessel and stricture of ureter without hydronephrosis) See#1. Unable to internalize stent due to complete mid-distal left ureteral stricture High risk for ureteral stricture repair or nephrectomy. 3. Kidney stone (N20.0: Calculus of kidney) Hx BL URS, LL stent with Dr. Giles 2020. KUB done 04/09/22 shows a Right superior 5 mm stone. A 6 mm stone in inferior L kidney. S/p cysto/L RPG/L ureteroscopy with attempted UD done 04/09/22 for left proximal hydroureteronephrosis, left kidney stone, and left distal ureteral stricture. Unable to place stent due to stricture. No stone in ureter. -Cont to monitor. 4. BPH with urinary obstruction (N40.1: Benign prostatic hyperplasia with lower urinary tract symptoms) No sample provided for UA today, pt has NT tube. IPSS 6 (15). Taking Flomax 0.4 mg qd. 5. Antiplatelet or antithrombotic long-term use (Z79.02: medical terminologist (current) use of antithrombotics/antipla telets) Stopped Plavix 8 days ago. No longer bleeding from SP tube. Elevated risks of dinorah (more content not included)... Normal [facility] Comment on above: Result Comment: Elec tronically Signed By: Anabela HOLLOWAY, Kiko Gautam\.br\Date and Time Signed: 08/01/22 18:29 EDT Group Home Recordson 07-31 [facility] Home Records [id number]#1.00CD :127 [facility] Lab Reportson 07-29-2022 Lab Reports [id number]#1.00C D:127 [facility] Lab Reportson 07-25-2022 Lab Reports 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 Arambula on 07/17/22. Outcome of Call: Nurse reported that tube is being flushed twice daily and there is still some hematuria, but it is improving, there are no clots present, and the tube flushes easily. The patient's plavix is still on hold for now and will remain on hold until at least his hematuria is resolved. Nurse was counseled that if the bleeding worsens at all to call us back. Patient will keep his scheduled appointment at [facility] on 08/16/22. He has a 10:30 arrival time and will be NPO at midnight the night before and if he restarts his plavix prior to procedure he will hold it for 5 days. Nurse verbalized understanding of instructions. Contact Number Given: Yes Number of minutes: A total of (20) minutes was spent on this encounter Nathen Mccoy APRN.CNP July 24, 2022 Allergies As of Date: 07/24/2022 Noted Allergy Reaction LISINOPRIL 07/17/2022 7 - Swelling CODEINE 07/13/2015 8 - GI Upset Date Reviewed: 07/18/2022 Reviewed by: Kimber See APRN.CNP - Fully Assessed Reason for Visit: Returning Patient's Call [408] Prescriptions as of 07/24/2022 - clopidogrel (PLAVIX) 75 mg tablet Take 1 tablet by mouth once daily. - ascorbic acid-bioflavonoids 500-500 mg cap Take by mouth once daily. - folic acid 1 mg tablet Take 1 mg by mouth once daily. - NIFEdipine ER (PROCARDIA XL) 30 mg 24 hr tablet Take 30 mg by mouth once daily. - doxycycline hyclate (VIBRAMYCIN) 100 mg capsule - amoxicillin (POLYMOX, AMOXIL) 500 mg capsule take 1 capsule by mouth every 8 hours for 7 days - ondansetron (ZOFRAN) 4 mg tablet Take 4 mg by mouth every 8 hours as needed. - sulfamethoxazole-trimet hoprim (BACTRIM DS,SEPTRA DS) 800-160 mg per tablet Take by mouth twice daily. - DULoxetine (CYMBALTA) 60 mg capsule Take 60 mg by mouth once daily. - bisacodyl (DULCOLAX) 10 mg supp 10 mg by RECTAL route once daily as needed. - ferrous sulfate 325 mg (65 mg iron) tablet Take 325 mg by mouth daily with breakfast. - furosemide (LASIX) 40 mg tablet Take 40 mg by mouth twice daily. - ammonium lactate (LAC-HYDRIN) 12 % cream Apply to affected area as needed. - INSULIN DETEMIR (LEVEMIR FLEXPEN SUBCUTANEOUS) Inject subcutaneously. - magnesium hydroxide (MOM) 400 mg/5 mL suspension Take by mouth once daily as needed. - insulin aspart U-100 (NOVOLOG) 100 unit/mL Inject subcutaneously. As directed - POTASSIUM ORAL Take by mouth. - aluminum-magnesium hydroxide-simethicone (MAALOX,MYLANTA,MAG-AL PLUS) 200-200-20 mg/5 mL suspension Take by mouth every 6 hours as needed. - acarbose (PRECOSE) 100 mg tablet Take 100 mg by mouth three times daily with meals. - amitriptyline (ELAVIL) 25 mg tablet Take 10 mg by mouth daily at bedtime. - aspirin, enteric coated (ASPIRIN, ENTERIC COATED) 81 mg EC tablet Take 81 mg by mouth once daily. - atorvastatin (LIPITOR) 40 mg tablet Take 40 mg by mouth once daily. - VITAMIN B COMPLEX (B-COMPLEX ORAL) Take by mouth. - PSEUDOEPHEDRINE/ACETAMI NOPHEN (CEPACOL SORE THROAT ORAL) Take by mouth. - tamsulosin ER (FLOMAX) 0.4 mg cp24 Take 0.4 mg by mouth. - acetaminophen (TYLENOL) 325 mg tablet Take 650 mg by mouth every 6 hours as needed. - LIRAGLUTIDE (VICTOZA 2-LEO SUBCUTANEOUS) Inject subcutaneously. As directed - CALCIUM CARBONATE/VITAMIN D3 (VITAMIN D-3 ORAL) Take by mouth. - GABAPENTIN (NEURONTIN ORAL) Take 1 tablet by mouth three times daily. - MULTIVITAMIN (MULTIPLE VITAMIN ORAL) Take 1 tablet by mouth once daily. Problem List As Of Date 07/24/2022 Noted Resolved APPOINTMENT CANCELLED 07/13/2015 07/13/2015 Leukocytosis [D72.829] 03/25/2017 Anemia [D64.9] 03/25/2017 Stage 4 chronic kidney disease (HCC) [N18.4] 03/25/2017 Gross hematuria [R31.0] 07/17/2022 Coronary artery disease [I25.10] 07/24/2021 Diabetes mellitus without complication (HCC) [E*09/13/2021 Mixed hyperlipidemia [E78.2] 07/18/2017 Venous insufficiency (chronic) (peripheral) [I8*04/06/2018 BPH with urinary obstruction [N40.1, N13.8] 07/17/2022 Gastroparesis [K31.84] 07/17/2022 Hydroureteronephrosis [N13.30] 11/14/2021 Gastroesophageal reflux disease without esophag*07/17/2022 Hyperkalemia [E87.5] 07/17/2022 Nicotine use disorder, F17.2 [F17.200] 07/18/2022 Hematuria [R31.9] 07/18/2022 Encounter Status:Closed by SRIDHAR MCCOY (more content not included)... Normal [facility] Operative Reporton 3 Operative Report [id number]#1.00C D:127 Normal [facility] RAD - CT Reporton 07-24-2022 RAD - CT Report [id number]#1.00C D:127 Normal [facility] Basic metabolic 2000 panelon 07-18-2022 Anion gap [Moles/Vol] 11 mmol/L Normal 9-18 [facility] Comment on above: Order Comment: Speci men Type: BLOOD SPECIMENOrdering Facility: [facility] Address: [address] [place]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 venous thromboembolism, current-generation mechanical or bioprosthetic aortic heart valve replacement. Note: Patients with mechanical aortic valve replacement and additional risk factors for thromboembolic events (atrial fibrillation, previous thromboembolism, LV dysfunction, hypercoagulable conditions) or an older generation mechanical AVR (i.e., ball in-Cage) or any mechanical MVR should have a INR therapeutic range of 2.5 to 3.5 (target INR of 3). Teresa MCNAMARA, et al. Chest 2012, 141:7S-47S Robin RA, et al. JAC 2017, 70: 252-289 Performed By: #### 3 4528-0 ####[facility]ORATORYCLIA [id number] [facility] [place] [address] [place] PT Coag (PPP) [Time] 10.9 s Normal 9.7-13.0 [facility] Comment on above: Order Comment: Speci men Type: BLOOD SPECIMENOrdering Facility: [facility] Address: [address] [place] [phone] Performed By: #### 3 4528-0 ####[facility]ATORYCLIA [id number] [facility] [place] [address] [facility] Partial Thromboplastin Timeo n 07-17-2022 aPTT Coag (Bld) [Time] 30.9 s Normal 25.1-36.5 [facility] Comment on above: Result Comment: PERF ORMED BY:[facility] [place], [place] [phone] MEDICAL DIRECTORCHRISTO PINO M.D. Performed By: #### C UBLD, PT, CMP, PTT, SCAN CBC ####[facility] [id number] [place] [address] [facility] Platelet adequacy [Presence] in Blood by Light microscopyOrdered By: Pedro Drake on 07-17-2022 Platelets LM Ql (Bld) Normal Normal [facility] Platelet mean volume Auto (B ld) [Entitic vol]Ordered By: Pedro Drake on 07-17-2022 Platelet mean volume (Bld) [Entitic vol] 10.0 fL 6.6-10.1 [facility] Platelet morphology finding [Identifier] in BloodOrdered By: Pedro Drake on 07-17-2022 Platelet morphology finding Nom (Bld) Normal Normal [facility] Platelet poor plasma interna tional normalized ratio (INR) by coagulation assay (relatOrdered By: Pedro Drake on 07-17-2022 INR Coag (PPP) [Relative time] 1.0 {INR} [facility] Comment on above: INR Therapeutic Rang e A) Pre- and Peroperative OAT started two weeks before surgery. NOT HIP SURGERY: 1.5 - 2.5 HIP SURGERY: 2 - 3B) Primary and secondary prevention of venous THROMBOSIS: 2 - 3C) Active venous thrombosis, pulmonary embolismand prevention of recurrent venous thrombosis: 2 - 3D) Prevention of arterial thromboembolismincluding patients with mechanical heart valves: 3 - 4.5 Platelets Auto (Bld) [#/Vol] Ordered By: Pedro Drake on 07-17-2022 Platelets (Bld) [#/Vol] 168 10*3/uL 150-450 [facility] Poikilocytosis [Presence] in Blood by Light microscopyOrdered By: Pedro Drake on 07-17-2022 Poikilocytosis LM Ql (Bld) Slight [facility] Potassium [Moles/volume] in Serum or PlasmaOrdered By: Pedro Drake on 07-17-2022 Potassium [Moles/Vol] 4.6 mmol/L 3.5-5.[address] [facility] Protein [Mass/volume] in Ser um or PlasmaOrdered By: Pedro Drake on 07-17-2022 Protein [Mass/Vol] 8.1 g/dL 6.4-8.9 [facility] Prothrombin Time INRon 07-17 INR Coag (PPP) [Relative time] 1.0 {INR} Normal [facility] Comment on above: Result Comment: INR Therapeutic Range A) Pre- and Peroperative OAT started two weeks before surgery. NOT HIP SURGERY: 1.5 - 2.5 HIP SURGERY: 2 - 3 B) Primary and secondary prevention of venous THROMBOSIS: 2 - 3 C) Active venous thrombosis, pulmonary embolism and prevention of recurrent venous thrombosis: 2 - 3 D) Prevention of arterial thromboembolism including patients with mechanical heart valves: 3 - 4.5 Performed By: #### C UBLD, PT, CMP, PTT, SCAN CBC ####[facility] [id number] [place] [address] [facility] PT Coag (PPP) [Time] 12.2 s Normal 9.0-12.9 [facility] Comment on above: Performed By: #### C UBLD, PT, CMP, PTT, SCAN CBC ####[address] RBC Auto (Bld) [#/Vol]Ordere d By: Pedro Vidal on 07-17-2022 RBC (Bld) [#/Vol] 3.19 10*6/uL 3.90-5.60 [facility] RBC morphologyOrdered By: Angela Drake on 07-17-2022 RBC morphology finding Nom (Bld) N/A [facility] Scan and CBCon 07-17-2022 Anisocytosis Ql (Bld) Marked Normal [facility] Comment on above: Performed By: #### C UBLD, PT, CMP, PTT, SCAN CBC ####[address] Basophils (Bld) [#/Vol] 0.1 10*3/uL Normal 0.0-0.2 [facility] Comment on above: Performed By: #### C UBLD, PT, CMP, PTT, SCAN CBC ####[address] Basophils/100 WBC (Bld) 0.6 % Normal . [facility] Comment on above: Performed By: #### C UBLD, PT, CMP, PTT, SCAN CBC ####[address] Eosinophils (Bld) [#/Vol] 0.4 10*3/uL Normal 0.0-0.45 [facility] Comment on above: Performed By: #### C UBLD, PT, CMP, PTT, SCAN CBC ####[address] Eosinophils/100 WBC (Bld) 3.5 % Normal . [facility] Comment on above: Performed By: #### C UBLD, PT, CMP, PTT, SCAN CBC ####[address] Erythrocyte distribution width (RBC) [Ratio] 16.4 % High 12.0-14.8 [facility] Comment on above: Performed By: #### C UBLD, PT, CMP, PTT, SCAN CBC ####[address] Hematocrit (Bld) [Volume fraction] 29.7 % Low 38.8-50.0 [facility] Comment on above: Performed By: #### C UBLD, PT, CMP, PTT, SCAN CBC ####[address] Hemoglobin (Bld) [Mass/Vol] 9.4 g/dL Low 13.0-17.0 [facility] Comment on above: Performed By: #### C UBLD, PT, CMP, PTT, SCAN CBC ####[address] Hypochromasia Moderate Normal [facility] Comment on above: Performed By: #### C UBLD, PT, CMP, PTT, SCAN CBC ####[address] Lymphocytes (Bld) [#/Vol] 5.1 10*3/uL High 1.00-4.8 [facility] Comment on above: Performed By: #### C UBLD, PT, CMP, PTT, SCAN CBC ####[address] Lymphocytes/100 WBC (Bld) 40.4 % Normal . [facility] Comment on above: Performed By: #### C UBLD, PT, CMP, PTT, SCAN CBC ####[address] Macrocytosis Moderate Normal [facility] Comment on above: Performed By: #### C UBLD, PT, CMP, PTT, SCAN CBC ####[address] MCH (RBC) [Entitic mass] 29.6 pg Normal 27.5-35.2 [facility] Comment on above: Performed By: #### C UBLD, PT, CMP, PTT, SCAN CBC ####[address] MCV (RBC) [Entitic vol] 93.1 fL Normal 83.5-101 [facility] Comment on above: Performed By: #### C UBLD, PT, CMP, PTT, SCAN CBC ####[address] Mean Corpuscular HGB Conc 31.8 g/dL Low 32.5-35.6 [facility] Comment on above: Performed By: #### C UBLD, PT, CMP, PTT, SCAN CBC ####[address] Monocytes (Bld) [#/Vol] 1.3 10*3/uL High 0.0-0.8 [facility] Comment on above: Performed By: #### C UBLD, PT, CMP, PTT, SCAN CBC ####[address] Monocytes/100 WBC (Bld) 21.81 % High 0.00-20.00 [facility] Comment on above: Result Comment: For adults in ED, MDW > 20.0 may be associated with a higher risk of sepsis during the first 12 hrs of hospital admission Performed By: #### C UBLD, PT, CMP, PTT, SCAN CBC ####[address] Monocytes/100 WBC (Bld) 10.3 % Normal . [facility] Comment on above: Performed By: #### C UBLD, PT, CMP, PTT, SCAN CBC ####[address] Neutrophils (Bld) [#/Vol] 5.7 10*3/uL Normal 1.8-7.7 [facility] Comment on above: Performed By: #### C UBLD, PT, CMP, PTT, SCAN CBC ####[address] Neutrophils/100 WBC (Bld) 45.2 % Normal . [facility] Comment on above: Performed By: #### C UBLD, PT, CMP, PTT, SCAN CBC ####[facility] [place] [address] [facility] NRBC% 0.2 /100{WBC} Normal 0-0.5 [facility] Comment on above: Performed By: #### C UBLD, PT, CMP, PTT, SCAN CBC ####[address] [address] [facility] Platelet Estimate Normal Normal Normal [facility] Comment on above: Performed By: #### C UBLD, PT, CMP, PTT, SCAN CBC ####[address] [place] [address] [facility] Platelet mean volume (Bld) [Entitic vol] 10.0 fL Normal 6.6-10.1 [facility] Comment on above: Performed By: #### C UBLD, PT, CMP, PTT, SCAN CBC ####[place] [id number] [facility] Platelet Morphology Normal Normal Normal [facility] Comment on above: Result Comment: PERF ORMED BY:[address] [place], [place] [phone] MEDICAL MOOSE PINO M.D. Performed By: #### C UBLD, PT, CMP, PTT, SCAN CBC ####[place] [id number] [facility] Platelets (Bld) [#/Vol] 168 10*3/uL Normal 150-450 [facility] Comment on above: Performed By: #### C UBLD, PT, CMP, PTT, SCAN CBC ####[place] [id number] [facility] Poikilocytosis Slight Normal [facility] Comment on above: Performed By: #### C UBLD, PT, CMP, PTT, SCAN CBC ####[place] [id number] [facility] RBC (Bld) [#/Vol] 3.19 10*6/uL Low 3.90-5.60 [facility] Comment on above: Performed By: #### C UBLD, PT, CMP, PTT, SCAN CBC ####[facility] [id number] [place] [address] [place] Schistocytes Slight Normal [facility] Comment on above: Performed By: #### C UBLD, PT, CMP, PTT, SCAN CBC ####[facility] [id number] [place] [address] [facility] Target Cells Moderate Normal [facility] Comment on above: Performed By: #### C UBLD, PT, CMP, PTT, SCAN CBC ####[facility] [id number] [place] [address] [facility] WBC (Bld) [#/Vol] 12.7 10*3/uL High 4.1-10.5 [facility] Comment on above: Performed By: #### C UBLD, PT, CMP, PTT, SCAN CBC ####[facility] [place] [address] [facility] Schistocytes [Presence] in B lood by Light microscopyOrdered By: Pedro Drake on 07-17-2022 Schistocytes LM Ql (Bld) Slight [facility] Serum or plasma albumin/glob ulin mass ratioOrdered By: Pedro Drake on 07-17-2022 Albumin/Globulin [Mass ratio] 0.7 {ratio} [facility] Serum or plasma anion gap de terminationOrdered By: Pedro Drake on 07-17-2022 Anion gap [Moles/Vol] 12.4 mmol/L 6.0-15.0 [facility] Sodium [Moles/volume] in Ser um or PlasmaOrdered By: Pedro Drake on 07-17-2022 Sodium [Moles/Vol] 135 mmol/L 136-145 [facility] Leena Ag Negativeon 07-18-19 23 Leena Ag Negative Negative Normal Negative [facility] Comment on above: Result Comment: This is a duplicate Leena SARS Antigen (KATHLEEN) result to be used for statistical tracking purpose only.PERFORMED BY:[facility] [place], [place] [phone] MEDICAL MOOSE PINO M.D. Performed By: #### S OFIANEG, COVID-19 LEENA ####[facility] [id number] [place] [address] [facility] Specific gravity Auto test s trip (U) [Rel density]Ordered By: Pedro Drake on 07-17-2022 Specific gravity (U) [Rel density] 1.012 1.001-1.030 [facility] Squamous epithelial cells de tection in urine sediment by light microscopyOrdered By: Pedro Drake on 07-17-2022 Epithelial cells.squamous LM Ql (Urine sed) None seen [HPF] 0-2 [facility] Target cellsOrdered By: Pedro Drake on 07-17-2022 Target cells LM Ql (Bld) Moderate [facility] Transferrin [Mass/volume] in Serum or PlasmaOrdered By: Clara Chew on 07-17-2022 Transferrin [Mass/Vol] 225 mg/dL 203-362 [facility] Urea nitrogen [Mass/volume] in Serum or PlasmaOrdered By: Pedro Drake on 07-17-2022 Urea nitrogen [Mass/Vol] 71 mg/dL 7-25 [facility] Urine bacteria detection by automated methodOrdered By: Pedro Drake on 07-17-2022 Bacteria Auto Ql (U) None seen None Seen [facility] Urine clarity by refractomet ry automatedOrdered By: Pedro Drake on 07-17-2022 Clarity Refractometry automated (U) Clear Clear [facility] Urine glucose measurement by automated test strip (mass/volume)Ordered By: Pedro Drake on 07-17-2022 Glucose Auto test strip (U) [Mass/Vol] Normal mg/dL Normal [facility] Urine hemoglobin detection b y automated test stripOrdered By: Pedro Drake on 07-17-2022 Hemoglobin Auto test strip Ql (U) Negative Negative [facility] Urine leukocyte esterase det ection by automated test stripOrdered By: Pedro Drake on 07-17-2022 Leukocyte esterase Auto test strip Ql (U) Negative Negative [facility] Urine pH measurement by auto mated test stripOrdered By: Pedro Drake on 07-17-2022 pH (U) 5.5 [pH] 5.0-9.0 [facility] Comment on above: Order Comment: Name Collection Type:: Clean-Voided Midstream Performed By: #### A DDONUAPLUS ####[facility] [id number] [place] [id number] [facility] Urine protein measurement by automated test strip (mass/volume)Ordered By: Pedro Drake on 07-17-2022 Protein (U) [Mass/Vol] 100 mg/dL Negative [facility] Comment on above: Order Comment: Name Collection Type:: Clean-Voided Midstream Performed By: #### A DDONUAPLUS ####[facility] [id number] [place] [id number] [facility] Urobilinogen Auto test strip (U) [Mass/Vol]Ordered By: Pedro Drake on 07-17-2022 Urobilinogen (U) [Mass/Vol] Normal mg/dL Normal [facility] WBC Auto (Bld) [#/Vol]Ordere d By: Pedro Drake on 07-17-2022 WBC (Bld) [#/Vol] 12.7 10*3/uL 4.1-10.5 [facility] Operative Reporton Operative Report [id number] D:127 Normal [facility] Alanine aminotransferase [En zymatic activity/volume] in Serum or PlasmaOrdered By: Maye Bunting on 07-04-2022 ALT [Catalytic activity/Vol] 16 U/L 7-52 [facility] Albumin [Mass/volume] in Ser um or Plasma by Bromocresol green (BCG) dye binding methoOrdered By: Maye Bunting on 07-04-2022 Albumin BCG dye [Mass/Vol] 3.8 g/dL 3.5-5.7 [facility] Alkaline phosphatase [Enzyma tic activity/volume] in Serum or PlasmaOrdered By: Maye Bunting on 07-04-2022 ALP [Catalytic activity/Vol] 123 U/L 34-104 [facility] Aspartate aminotransferase [ Enzymatic activity/volume] in Serum or PlasmaOrdered By: Maye Bunting on 07-04-2022 AST [Catalytic activity/Vol] 32 U/L 13-39 [facility] Basophils Auto (Bld) [#/Vol] Ordered By: Maye Bunting on 07-04-2022 Basophils (Bld) [#/Vol] 0.1 10*3/uL 0.0-0.2 [facility] Basophils/100 WBC Auto (Bld) Ordered By: Maye Bunting on 07-04-2022 Basophils/100 WBC (Bld) 0.6 % . [facility] Bilirubin.total [Mass/volume ] in Serum or PlasmaOrdered By: Maye Bunting on 07-04-2022 Bilirubin [Mass/Vol] 0.3 mg/dL 0.3-1.0 [facility] Calcium [Mass/volume] in Ser um or PlasmaOrdered By: Maye Bunting on 07-04-2022 Calcium [Mass/Vol] 8.8 mg/dL 8.6-10.3 [facility] Carbon dioxide, total [Moles /volume] in Serum or PlasmaOrdered By: Maye Bunting on 07-04-2022 CO2 [Moles/Vol] 23.5 mmol/L 21.0-31.0 [facility] Chloride [Moles/volume] in S leti or PlasmaOrdered By: Maye Bunting on 07-04-2022 Chloride [Moles/Vol] 104 mmol/L 98-107 [facility] Complete Blood Count Auto Di ffon 07-04-2022 Basophils (Bld) [#/Vol] 0.1 10*3/uL Normal 0.0-0.2 [facility] Comment on above: Result Comment: PERF ORMED BY:[facility] [place], [place] [phone] MEDICAL DIRECTORCHRISTO PINO M.D. Performed By: #### C BC, CMP ####[facility] [id number] [place] [address] [facility] Basophils/100 WBC (Bld) 0.6 % Normal . [facility] Comment on above: Performed By: #### C BC, CMP ####[facility] [place] [address] [facility] Eosinophils (Bld) [#/Vol] 0.5 10*3/uL High 0.0-0.45 [facility] Comment on above: Performed By: #### C BC, CMP ####[address] [address] [facility] Eosinophils/100 WBC (Bld) 4.5 % Normal . [facility] Comment on above: Performed By: #### C BC, CMP ####[address] [address] [facility] Erythrocyte distribution width (RBC) [Ratio] 16.6 % High 12.0-14.8 [facility] Comment on above: Performed By: #### C BC, CMP ####[address] [address] [facility] Hematocrit (Bld) [Volume fraction] 32.7 % Low 38.8-50.0 [facility] Comment on above: Performed By: #### C BC, CMP ####[address] [address] [facility] Hemoglobin (Bld) [Mass/Vol] 10.4 g/dL Low 13.0-17.0 [facility] Comment on above: Performed By: #### C BC, CMP ####[address] [address] [facility] Lymphocytes (Bld) [#/Vol] 4.7 10*3/uL Normal 1.00-4.8 [facility] Comment on above: Performed By: #### C BC, CMP ####[place] [id number] [facility] Lymphocytes/100 WBC (Bld) 41.1 % Normal . [facility] Comment on above: Performed By: #### C BC, CMP ####[address] [address] [facility] MCH (RBC) [Entitic mass] 30.5 pg Normal 27.5-35.2 [facility] Comment on above: Performed By: #### C BC, CMP ####[address] [address] [facility] MCV (RBC) [Entitic vol] 96.1 fL Normal 83.5-101 [facility] Comment on above: Performed By: #### C BC, CMP ####[facility] [place] [address] [facility] Mean Corpuscular HGB Conc 31.8 g/dL Low 32.5-35.6 [facility] Comment on above: Performed By: #### C BC, CMP ####[address] [place] [address] [facility] Monocytes (Bld) [#/Vol] 1.3 10*3/uL High 0.0-0.8 [facility] Comment on above: Performed By: #### C BC, CMP ####[address] [place] [address] [facility] Monocytes/100 WBC (Bld) 11.1 % Normal . [facility] Comment on above: Performed By: #### C BC, CMP ####[address] [address] [facility] Neutrophils (Bld) [#/Vol] 4.9 10*3/uL Normal 1.8-7.7 [facility] Comment on above: Performed By: #### C NETO, CMP ####[address] [address] [facility] Neutrophils/100 WBC (Bld) 42.7 % Normal . [facility] Comment on above: Performed By: #### C BC, CMP ####[address] [place] [address] [facility] NRBC% 0.3 /100{WBC} Normal 0-0.5 [facility] Comment on above: Performed By: #### C BC, CMP ####[address] [place] [address] [facility] Platelet mean volume (Bld) [Entitic vol] 9.7 fL Normal 6.6-10.1 [facility] Comment on above: Performed By: #### C BC, CMP ####[address] [place] [address] [facility] Platelets (Bld) [#/Vol] 205 10*3/uL Normal 150-450 [facility] Comment on above: Performed By: #### C BC, CMP ####[address] [address] [facility] RBC (Bld) [#/Vol] 3.40 10*6/uL Low 3.90-5.60 [facility] Comment on above: Performed By: #### C BC, CMP ####[address] [address] [facility] WBC (Bld) [#/Vol] 11.4 10*3/uL High 4.1-10.5 [facility] Comment on above: Performed By: #### C NETO, CMP ####[address] [address] [facility] Comprehensive Metabolic Pane fidel 07-04-2022 Albumin [Mass/Vol] 3.8 g/dL Normal 3.5-5.7 [facility] Comment on above: Performed By: #### C NETO, CMP ####[place] [id number] [facility] Albumin/Globulin [Mass ratio] 0.8 {ratio} Normal [facility] Comment on above: Performed By: #### C NETO, CMP ####[address] [address] [facility] ALP [Catalytic activity/Vol] 123 U/L High 34-104 [facility] Comment on above: Result Comment: PERF ORMED BY:[address] [place], [place] [phone] MEDICAL MOOSE PINO M.D. Performed By: #### C BC, CMP ####[address] [address] [facility] ALT [Catalytic activity/Vol] 16 U/L Normal 7-52 [facility] Comment on above: Performed By: #### C BC, CMP ####[place] [id number] [facility] Anion gap [Moles/Vol] Not performed Normal 6.0-15.0 [facility] Comment on above: Performed By: #### C BC, CMP ####[facility] [place] [address] [facility] AST [Catalytic activity/Vol] 32 U/L Normal 13-39 [facility] Comment on above: Performed By: #### C BC, CMP ####[facility] [place] [address] [facility] Bilirubin [Mass/Vol] 0.3 mg/dL Normal 0.3-1.0 [facility] Comment on above: Performed By: #### C BC, CMP ####[facility] [place] [address] [facility] Calcium [Mass/Vol] 8.8 mg/dL Normal 8.6-10.3 [facility] Comment on above: Performed By: #### C NETO, CMP ####[address] [place] [address] [facility] Chloride [Moles/Vol] 104 mmol/L Normal 98-107 [facility] Comment on above: Performed By: #### C NETO, CMP ####[address] [place] [address] [facility] CO2 [Moles/Vol] 23.5 mmol/L Normal 21.0-31.0 [facility] Comment on above: Performed By: #### C NETO, CMP ####[facility] [place] [address] [facility] Creatinine [Mass/Vol] 4.52 mg/dL High 0.70-1.[address] [facility] Comment on above: Performed By: #### C NETO, CMP ####[facility] [place] [address] [place] GFR/1.73 sq M.predicted MDRD (S/P/Bld) [Vol rate/Area] 13.084 mL/min/{1.73_m2} Normal [facility] Comment on above: Performed By: #### C BC, CMP ####[address] [place] [address] [facility] Globulin (S) [Mass/Vol] 4.8 g/dL Normal [facility] Comment on above: Performed By: #### C BC, CMP ####[address] [place] [address] [facility] Glucose [Mass/Vol] 151 mg/dL High 70-100 [facility] Comment on above: Result Comment: [place] Glucose Reference Range is dependent on time and content of last meal. Glucose of more than 200 mg/dL in a nonstressed, ambulatory subject supports the diagnosis of Diabetes Mellitus. ADA recommended reference range Performed By: #### C BC, CMP ####[address] [place] [address] [facility] Potassium [Moles/Vol] Not performed Normal 3.5-5.1 [facility] Comment on above: Result Comment: Hemo lysis is present at a level that could interfere with the result. Performed By: #### C NETO, CMP ####[address] [place] [address] [facility] Protein [Mass/Vol] 8.6 g/dL Normal 6.4-8.9 [facility] Comment on above: Performed By: #### C BC, CMP ####[address] [address] [facility] Sodium [Moles/Vol] 136 mmol/L Normal 136-145 [facility] Comment on above: Performed By: #### C NETO, CMP ####[address] [place] [address] [facility] Urea nitrogen [Mass/Vol] 57 mg/dL High 7-25 [facility] Comment on above: Performed By: #### C BC, CMP ####[address] [address] [facility] Creatinine [Mass/volume] in Serum or PlasmaOrdered By: Maye Bunrina on 07-04-2022 Creatinine [Mass/Vol] 4.52 mg/dL 0.70-1.[address] [facility] Eosinophils Auto (Bld) [#/Vo l]Ordered By: Maye Bunting on 07-04-2022 Eosinophils (Bld) [#/Vol] 0.5 10*3/uL 0.0-0.45 [facility] Eosinophils/100 WBC Auto (Bl d)Ordered By: Maye Bunting on 07-04-2022 Eosinophils/100 WBC (Bld) 4.5 % . [facility] Erythrocyte distribution wid th Auto (RBC) [Ratio]Ordered By: Maye Bunting on 07-04-2022 Erythrocyte distribution width (RBC) [Ratio] 16.6 % 12.0-14.8 [facility] Globulin Calc (S) [Mass/Vol] Ordered By: Maye Bunting on 07-04-2022 Globulin (S) [Mass/Vol] 4.8 g/dL [facility] Glucose [Mass/volume] in Ser um or PlasmaOrdered By: Maye Bunrina on 07-04-2022 Glucose [Mass/Vol] 151 mg/dL 70-100 [facility] Comment on above: ADA recommended refe rence rangeRandom Glucose Reference Range is dependent on time and content of last meal. Glucose of more than 200 mg/dL in a nonstressed, ambulatory subject supports the diagnosis of Diabetes Mellitus. Hematocrit Auto (Bld) [Volum e fraction]Ordered By: Maye Murray on 07-04-2022 Hematocrit (Bld) [Volume fraction] 32.7 % 38.8-50.0 [facility] Hemoglobin [Mass/volume] in BloodOrdered By: Maye Bunting on 07-04-2022 Hemoglobin (Bld) [Mass/Vol] 10.4 g/dL 13.0-17.0 [facility] Leukocytes [#/volume] correc lakesha for nucleated erythrocytes in Blood by Automated counOrdered By: Maye Bunrina on 07-04-2022 WBC corrected for nucl RBC Auto (Bld) [#/Vol] 11.4 10*3/uL 4.1-10.5 [facility] Lymphocytes Auto (Bld) [#/Vo l]Ordered By: Maye Bunting on 07-04-2022 Lymphocytes (Bld) [#/Vol] 4.7 10*3/uL 1.00-4.8 [facility] Lymphocytes/100 WBC Auto (Bl d)Ordered By: Maye Bunting on 07-04-2022 Lymphocytes/100 WBC (Bld) 41.1 % . [facility] MCH Auto (RBC) [Entitic mass ]Ordered By: Maye Bunting on 07-04-2022 MCH (RBC) [Entitic mass] 30.5 pg 27.5-35.2 [facility] MCHC Auto (RBC) [Mass/Vol]Or dered By: Maye Bunting on 07-04-2022 MCHC (RBC) [Mass/Vol] 31.8 g/dL 32.5-35.6 Fir [facility] MCV Auto (RBC) [Entitic vol] Ordered By: Maye Bunting on 07-04-2022 MCV (RBC) [Entitic vol] 96.1 fL 83.5-101 [facility] Monocytes Auto (Bld) [#/Vol] Ordered By: Maye Bunting on 07-04-2022 Monocytes (Bld) [#/Vol] 1.3 10*3/uL 0.0-0.8 [facility] Monocytes/100 WBC Auto (Bld) Ordered By: Maye Bunting on 07-04-2022 Monocytes/100 WBC (Bld) 11.1 % . [facility] Neutrophils Auto (Bld) [#/Vo l]Ordered By: Maye Bunting on 07-04-2022 Neutrophils (Bld) [#/Vol] 4.9 10*3/uL 1.8-7.7 [facility] Neutrophils/100 WBC Auto (Bl d)Ordered By: Maye Bunting on 07-04-2022 Neutrophils/100 WBC (Bld) 42.7 % . [facility] No Panel InformationOrdered By: Maye Bunting on 07-04-2022 Estimated GFR (CKD-EPI) 13.084 mL/Min [facility] Creatinine Clearance (Chem N/A [facility] 13.084 mL/Min [facility] N/A [facility] Nucleated erythrocytes [Pres ence] in Blood by Automated countOrdered By: Maye Bunting on 07-04-2022 Nucleated RBC Auto Ql (Bld) 0.3 /100{WBC} 0-0.5 [facility] Platelet mean volume Auto (B ld) [Entitic vol]Ordered By: Maye Bunting on 07-04-2022 Platelet mean volume (Bld) [Entitic vol] 9.7 fL 6.6-10.1 [facility] Platelets Auto (Bld) [#/Vol] Ordered By: Maye Bunting on 07-04-2022 Platelets (Bld) [#/Vol] 205 10*3/uL 150-450 [facility] Potassium [Moles/volume] in Serum or PlasmaOrdered By: Maye Bunting on 07-04-2022 Potassium [Moles/Vol] TNP [facility] Comment on above: Test not performedHe molysis is present at a level that could interfere with the result. Protein [Mass/volume] in Ser um or PlasmaOrdered By: Maye Bunting on 07-04-2022 Protein [Mass/Vol] 8.6 g/dL 6.4-8.9 [facility] RBC Auto (Bld) [#/Vol]Ordere d By: Maye Bunting on 07-04-2022 RBC (Bld) [#/Vol] 3.40 10*6/uL 3.90-5.60 [facility] Serum or plasma albumin/glob ulin mass ratioOrdered By: Maye Bunting on 07-04-2022 Albumin/Globulin [Mass ratio] 0.8 {ratio} [facility] Serum or plasma anion gap de terminationOrdered By: Maye Bunting on 07-04-2022 Anion gap [Moles/Vol] TNP [facility] Comment on above: Test not performed Sodium [Moles/volume] in Ser um or PlasmaOrdered By: Maye Bunting on 07-04-2022 Sodium [Moles/Vol] 136 mmol/L 136-145 [facility] Urea nitrogen [Mass/volume] in Serum or PlasmaOrdered By: Maye Bunting on 07-04-2022 Urea nitrogen [Mass/Vol] 57 mg/dL 7-25 [facility] WBC Auto (Bld) [#/Vol]Ordere d By: Maye Bunting on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 out was performed immediately prior to procedure start with the nursing and interventional team, correctly identifying the name, date of , procedure, anatomy (including marking of site and side if applicable), patient position, procedure consent form, relevant diagnostic and radiology test results, antibiotic administration if applicable, safety precautions, and procedure-specific equipment needs. Start of procedure: 1:38 PM End of procedure: 2:10 PM Patient position: Prone Preparation: The site was prepared and draped using all elements of maximal sterile barrier technique including sterile gloves, sterile gown, cap, mask, large sterile sheet, sterile ultrasound probe cover, hand hygiene and cutaneous antisepsis. Antibiotics: Cefazolin Antibiotic infusion start time: 1:12 PM Prophylactic antibiotic administered: Within 1 hour of procedure start time or 2 hours for vancomycin or fluoroquinolones Additional med: None Additional med: None Contrast Contrast agent: OMNIPAQUE 300 Contrast volume (mL): 10 Image Guidance: Fluoroscopic and sonographic guidance with digital image storage Radiation Dose FLUOROSCOPIC RADIATION SUMMARY: Plane A, Air Kerma: 41.6 mGy Dose Area Product (DAP): 3919 mGycm2 Fluoro Time: 3:06 min:sec Radiation dose exceed 5 Gy: No If radiation dose exceeded 5 Gy, was counseling and instructional brochure provided: N/A Anesthesia/sedation Level of anesthesia/sedation: Moderate sedation (conscious sedation) Anesthesia/sedation administered by: Independent trained observer under attending supervision with continuous monitoring of the patient?s level of consciousness and physiologic status Total intra-service sedation time (minutes): 43 Local anesthesia: 1 % lidocaine Left genitourinary catheter placement Local anesthesia was administered. A needle was advanced into an interpolar calyx under ultrasound and fluoroscopy guidance. A wire was advanced, the tract was serially dilated and a nephrostomy tube was placed. Contrast injection was performed. 10 cc of purulent urine was aspirated and sent for analysis. Genitourinary catheter placed: 10 [address] [employer] nephrostomy Findings: 1. Initial ultrasound showed mild hydronephrosis. 2. Satisfactory positioning of new nephrostomy tube External catheter securement: Non-absorbable suture Additional genitourinary system intervention Genitourinary intervention: None Location of intervention: Not applicable Device used: Not applicable Description of intervention: Not applicable Post-intervention findings: Not applicable Additional Details Additional description of procedure: None Equipment (more content not included)... Normal [facility] NURSING PROGon 01-30-2023 NURSING PROG HNO ID: [id number] Author: Mariam Loya RN Service: Nursing Author Type: Registered Nurse Type: Nursing Progress Note Filed: 05/06/2022 4:07 PM Note Text: Other: Spoke with VIOLET Brady at [facility]. Pt to start on Ceftriaxone 1 gram IV every 12 hrs. Plavix to start tomorrow 05/07/22. Normal saline flushes to left nephrostomy tube every 12 hours until clear then once daily. Facility to follow up on urine culture results in a couple days to adjust antibiotics or stop them. Pt to be transported around 5pm back to facility.Transport agreeable with leaving IV in place due to pt being a difficult stick. Facility aware that pt is coming with IV in place. Dr. Flores wanted pt to stay overnight for observation due to nature of urine and pt refusing to stay overnight. [facility] CNPNon 05-03-2022 CNPN Telephone (AVXRPR) SIMON LOTT ([id number]) 1950 M Date Time Provider Department 05/03/22 [place]LE [place] During your visit today, we recorded the following information about you: Mile Birmingham RN 05/03/2022 12:12 PM Signed scrub wheel operator called [phone] inquiring about patient's procedure today to clarify the plavix was held for five (5) days, as ordered. Jitendra Moreno said patient has been picked up by transport and rescheduled for this up-coming Friday. Director was told to have the patient come at 11:15 am, hold plavix, and initiated NPO after midnight for rescheduled procedure. Allergies As of Date: 05/03/2022 Noted Allergy Reaction CODEINE 07/13/2015 8 - GI Upset Date Reviewed: 05/03/2022 Reviewed by: Zahra Garay RN - Fully Assessed Reason for Visit: Appointment [[id number]] Prescriptions as of 05/03/2022 - ascorbic acid-bioflavonoids 500-500 mg cap Take by mouth once daily. - folic acid 1 mg tablet Take 1 mg by mouth once daily. - NIFEdipine ER (PROCARDIA XL) 30 mg 24 hr tablet Take 30 mg by mouth once daily. - doxycycline hyclate (VIBRAMYCIN) 100 mg capsule - amoxicillin (POLYMOX, AMOXIL) 500 mg capsule take 1 capsule by mouth every 8 hours for 7 days - ondansetron (ZOFRAN) 4 mg tablet Take 4 mg by mouth every 8 hours as needed. - sulfamethoxazole-trimet hoprim (BACTRIM DS,SEPTRA DS) 800-160 mg per tablet Take by mouth twice daily. - DULoxetine (CYMBALTA) 60 mg capsule Take 60 mg by mouth once daily. - bisacodyl (DULCOLAX, BISACODYL,) 10 mg supp 10 mg by RECTAL route once daily as needed. - ferrous sulfate 325 mg (65 mg iron) tablet Take 325 mg by mouth daily with breakfast. - furosemide (LASIX) 40 mg tablet Take 40 mg by mouth twice daily. - ammonium lactate (LAC-HYDRIN) 12 % cream Apply to affected area as needed. - INSULIN DETEMIR (LEVEMIR FLEXPEN SUBCUTANEOUS) Inject subcutaneously. - magnesium hydroxide (MOM) 400 mg/5 mL suspension Take by mouth once daily as needed. - insulin aspart U-100 (NOVOLOG U-100 INSULIN ASPART) 100 unit/mL soln Inject subcutaneously. As directed - clopidogrel (PLAVIX) 75 mg tablet Take 75 mg by mouth once daily. - POTASSIUM ORAL Take by mouth. - aluminum-magnesium hydroxide-simethicone (RULOX) 200-200-20 mg/5 mL suspension Take by mouth every 6 hours as needed. - acarbose (PRECOSE) 100 mg tablet Take 100 mg by mouth three times daily with meals. - amitriptyline (ELAVIL) 25 mg tablet Take 10 mg by mouth daily at bedtime. - aspirin, enteric coated (ASPIRIN, ENTERIC COATED) 81 mg EC tablet Take 81 mg by mouth once daily. - atorvastatin (LIPITOR) 40 mg tablet Take 40 mg by mouth once daily. - VITAMIN B COMPLEX (B-COMPLEX ORAL) Take by mouth. - PSEUDOEPHEDRINE/ACETAMI NOPHEN (CEPACOL SORE THROAT ORAL) Take by mouth. - losartan (COZAAR) 100 mg tablet Take 100 mg by mouth once daily. - tamsulosin ER (FLOMAX) 0.4 mg cp24 Take 0.4 mg by mouth. - acetaminophen (TYLENOL) 325 mg tablet Take 650 mg by mouth every 6 hours as needed. - LIRAGLUTIDE (VICTOZA 2-LEO SUBCUTANEOUS) Inject subcutaneously. As directed - CALCIUM CARBONATE/VITAMIN D3 (VITAMIN D-3 ORAL) Take by mouth. - GABAPENTIN (NEURONTIN ORAL) Take 1 tablet by mouth three times daily. - MULTIVITAMIN (MULTIPLE VITAMIN ORAL) Take 1 tablet by mouth once daily. Problem List As Of Date 05/03/2022 Noted Resolved APPOINTMENT CANCELLED 07/13/2015 07/13/2015 Leukocytosis [D72.829] 03/25/2017 Anemia [D64.9] 03/25/2017 Stage 4 chronic kidney disease (HCC) [N18.4] 03/25/2017 Encounter Status:Closed by MILE [place] on 05/03/22 [facility] NURSING PROGon 05-03-2022 NURSING PROG HNO ID: [id number] Author: Zahra Garay RN Service: ? Author Type: Registered Nurse Type: Nursing Progress Note Filed: 05/03/2022 11:42 AM Note Text: Dr Yancey in to speak with pt . Pt only off plavix for 2 days and states he had bkfst today. Dr Flores states procedure cancelled for today and pt is to remain off plavix and npo after midnight and then will try to get pt on mondays schedule. Spoke with Adriana regarding cancelled procedure and pt to reain off plavix and npo after midght for ttentative rescheduling of procedure for friday [facility] Patient Educationon 04-26-19 Patient Education Urology Hydronephrosis Hydronephrosis is the swelling of one or both kidneys due to a blockage that stops urine from flowing out of the body. Kidneys filter waste from the blood and produce urine. This condition can lead to kidney failure and may become life threatening if not treated promptly. What are the causes? Common causes of this condition include: ? Problems that occur when a baby is developing in the womb (congenital defect). These can include problems: ? In the kidneys. ? In the tubes that drain urine from the kidneys into the bladder (ureters). ? Kidney stones. ? Bladder infection. ? An enlarged prostate gland. ? Scar tissue from a previous surgery or injury. ? A blood clot. ? A tumor or cyst in the abdomen or pelvis. ? Cancer of the prostate, bladder, uterus, ovary, or colon. What are the signs or symptoms? Symptoms of this condition include: ? Pain or discomfort in your side (flank). ? Pain and swelling in your abdomen. ? Nausea and vomiting. ? Fever. ? Pain when passing urine. ? Feelings of urgency when you need to urinate. ? Urinating more often than normal. In some cases, you may not have any symptoms. How is this diagnosed? This condition may be diagnosed based on: ? Your symptoms and medical history. ? A physical exam. ? Blood and urine tests. ? Imaging tests, such as an ultrasound, CT scan, or MRI. ? A procedure in which a scope is inserted into the urethra and used to view parts of the urinary tract and bladder (cystoscopy). How is this treated? Treatment for this condition depends on where the blockage is, how long it has been there, and what caused it. The goal of treatment is to remove the blockage. Treatment may include: ? Antibiotic medicines to treat or prevent infection. ? A procedure to place a small, thin tube (stent) into a blocked ureter. The stent will keep the ureter open so that urine can drain through it. ? A nonsurgical procedure that crushes kidney stones with shock waves (extracorporeal shock wave lithotripsy). ? If kidney failure occurs, treatment may include dialysis or a kidney transplant. Follow these instructions at home: ? Take syqj-fso-hqlzydb and prescription medicines only as told by your health care provider. ? Rest and return to your normal activities as told by your health care provider. Ask your health care provider what activities are safe for you. ? Drink enough fluid to keep your urine pale yellow. ? If you were prescribed an antibiotic medicine, take it exactly as told by your health care provider. Do not stop taking the antibiotic even if you start to feel better. ? Keep all follow-up visits as told by your health care provider. This is important. Contact a health care provider if: ? You continue to have symptoms after treatment. ? You develop new symptoms. ? Your urine becomes cloudy or bloody. ? You have a fever. Get help right away if: ? You have severe flank or abdominal pain. ? You cannot drink fluids without vomiting. Summary ? Hydronephrosis is the swelling of one or both kidneys due to a blockage that stops urine from flowing out of the body. ? Hydronephrosis can lead to kidney failure and may become life threatening if not treated promptly. ? The goal of treatment is to treat the cause of the blockage. It may include insertion of stent into a blocked ureter, a procedure to treat kidney stones, and antibiotic medicines. ? Follow your health care provider's instructions for taking care of yourself at home, including instructions about drinking fluids, taking medicines, and limiting activities. This information is not intended to replace advice given to you by your health care provider. Make sure you discuss any questions you have with your health care provider. Document Released: 01/19/2008 Document Revised: 04/04/2018 Document Reviewed: 04/04/2018 [employer] Patient Education ? [address] [employer] [facility] Urology Office/Clinic Noteon 04-26-2022 Urology Office/Clinic Note Chief Complaint Pt is here to discuss nephrostomy tube placement HPI Staff Simon is a 72 y.o. male here to discuss post OP before nephrostomy tube placement. Previous Dx: BPH w/ urinary obstruction, frequency of urination, hydronephrosis, kidney stone, nocturia, post void dribbling, urgency of urination, urine retention. S/P cysto/RG/ureteroscopy/U D done on 04/09/22, cystoscopy done on 05/25/20. Dysuria: denies Incomplete bladder emptying: denies Hematuria: denies Frequency: yes Urgency: denies Nocturia: 2x a night bedside urinal Stream: steady stream Leaking: denies Post void dripping: denies Wearing pads/ Depends: yes wears depends Urge incontinence: denies Stress incontinence: denies Incontinence without Sensory Awareness: denies Abdominal pain: denies Flank pain: denies Sexual complaints: _ History of Present Illness Tests reviewed: blood work, op note. I have reviewed the previous health record information and history for this patient from Dr. Corbett. I have reviewed and verified the staff HPI to be accurate for this encounter. There have been no associated fever, chills, flank pain, or blood in the urine. Denies any urinary infections since last encounter. Review of Systems PHQ Score Initial Depression Screen Score: 0 ROS - Provider Constitutional: denies weight loss, denies hot flashes. Eyes: denies eye problems. Gastrointestinal: denies nausea, denies vomiting. Cardiovascular: denies chest pain or angina. Integumentary: no dryness Musculoskeletal: denies musculoskeletal symptoms. ENMT: denies otolaryngeal symptoms. Respiratory: no shortness of breath. Heme/Lymph: denies easy bleeding tendency, denies easy bruising tendency. Psychiatric: no confusion, no anxiety. Genitourinary: See HPI. Physical Exam Vitals & Measurements HR: 71(Peripheral) BP: 135/84 HT: 74 in HT: 187 cm General Appearance: alert, no distress, well nourished, well developed male. In wheelchair Genitourinary: Flank Pain: none. Bladder: nonpalpable. Assessment/Plan No sample provided for UA today. IPSS and PAOLA given but not completed. 1. Hydronephrosis with ureteral stricture, not elsewhere classified (N13.1: Hydronephrosis with ureteral stricture, not elsewhere classified) 12/05/21: Crea 3.38. eGFR AA 22. BUN 37. 01/11/22: Crea 3.84. eGFR AA 19. 04/09/22: Crea 4.7. eGFR AA 15. S/p cysto/L retro pyelo/L ureteroscopy with attempted UD done 04/09/22 for left proximal hydroureteronephrosis, left kidney stone, and left mid and distal ureteral stricture. Denies any pain on left side. Due to extent of strictures and inability to place wire/stent retrograde, left percutaneous nephrostomy tube recommended to protect kidney function - IR [facility]. Next exchange in 2-3 months, IR can try to internalize stent + exchange perc NT incase indwelling stent fails to provide enough drainage. Risk of inability to bypass stricture was also discussed. If access established antegrade, can then exchange stent retrograde. Discussed overall options including no intervention versus percutaneous nephrostomy tube/ureteral stent long-term versus definitive reconstructive repair which is more invasive. Would need referral to tertiary center for evaluation. Pt does not want dialysis in the future. -Pt wishes to proceed with left percutaneous nephrostomy tube placement. Discussed stopping blood thinners before procedure to reduce risks of bleeding. -Follow up in 1 month after nephrostomy tube placement with BMP. -If renal function recovering, will place order for percutaneous left nephrostomy tube exchange with placement of internal double-J ureteral stent. 2. BPH with urinary obstruction (N40.1: Benign prostatic hyperplasia with lower urinary tract symptoms) Pt continues taking Tamsulosin 0.4 mg QD. Pt denies any urinary habit complaints today. 3. Kidney stone (N20.0: Calculus of kidney) Hx BL URS, LL stent with Dr. Giles 2020. KUB done 04/09/22 shows a Right superior 5 mm stone. A 6 mm stone in inferior L kidney. S/p cysto/L RPG/L ureteroscopy with attempted UD done 04/09/22 for left proximal hydroureteronephrosis, left kidney stone, and left distal ureteral stricture. Unable to place stent due to stricture Pt agrees to proceed with perc L Neph tube as above 4. Antiplatelet or antithrombotic long-term use (Z79.02: [facility] (current) use of antithrombotics/antipla telets) Plavix. The risk of being off blood thinners for the proposed procedure was discussed with the patient. The amount of bleeding and other complications will be reduced, but not eliminated with stopping the medication, but the potential risk of heart attack or stroke is increased. The pros and cons have been discussed, and the patient/family understands these risks and have decided that the benefits outweigh these risks. Orders: Basic Metabolic Panel Urology Procedure Order Follow-up With When Contact Information Kiko Corbett MD, URL, URO Additional (more content not included)... Normal [facility] Comment on above: Result Comment: Elec tronically Signed By: Kiko Corbett MD\.br\Date and Time Signed: 04/26/22 08:48 EST\.br\Electronically Co-Signed By: Eulalia Cornell\.br\Date and Time Co-Signed: 04/26/22 08:35 EST Neda 04-23-2022 MESFIN Telephone (AVXRPR) SIMON LOTT ([id number]) 1950 M Date Time Provider Department 04/23/22 MATTHEW MAKI During your visit today, we recorded the following information about you: Matthew Maki RN 04/23/2022 2:32 PM Signed You are scheduled for a nephrostomy tube placement on 05/03/2022. You are to arrive at 10:30 am and Report to [facility]: Enter through [facility] entrance. Proceed to the 2nd floor Surgical Services Desk for check in. You can expect to be here for 8 hours. Diet: Do not eat or drink anything after midnight the day of/night before your procedure Medications: Ok to take your cardiac, blood pressure, anti-seizure, and chronic pain medications with a sip of water, please take prior to arrival. Bring your current medication list. RADIOLOGY RECOMMENDS THESE MEDICATION RESTRICTIONS: Are you taking any of following medications? Plavix. If okay with your Prescribing Provider: Stop Plavix 5 days prior to this procedure. Stop Coumadin 5 days prior to this procedure. Stop Eliquis 48 Hours prior to this procedure. Stop Xarelto 24 Hours prior to this procedure. Hold Lovenox for 24 hours prior to this procedure. Labs: Lab-work needs to be drawn? Yes. To be drawn in pre-op. Occupational Analyst/Transportation: How will you be arriving for your procedure? Ambulance service. You will need a responsible adult to accompany you to and from the procedure. Your sweeper driver is required to stay with you until you are taken into the procedure room. Spoke to learning and development director at [facility] and gave all instructions. Stated patient would be arriving via amublance on stretcher. Allergies As of Date: 04/23/2022 Noted Allergy Reaction CODEINE 07/13/2015 8 - GI Upset Date Reviewed: 07/13/2018 Reviewed by: Falguni Slater - Fully Assessed Reason for Visit: Radiology Pre Procedure Instructions [1506] Prescriptions as of 04/23/2022 - doxycycline hyclate (VIBRAMYCIN) 100 mg capsule - amoxicillin (POLYMOX, AMOXIL) 500 mg capsule take 1 capsule by mouth every 8 hours for 7 days - ondansetron (ZOFRAN) 4 mg tablet Take 4 mg by mouth every 8 hours as needed. - sulfamethoxazole-trimet hoprim (BACTRIM DS,SEPTRA DS) 800-160 mg per tablet Take by mouth twice daily. - DULoxetine (CYMBALTA) 60 mg capsule Take 60 mg by mouth once daily. - bisacodyl (DULCOLAX, BISACODYL,) 10 mg supp 10 mg by RECTAL route once daily as needed. - ferrous sulfate 325 mg (65 mg iron) tablet Take 325 mg by mouth daily with breakfast. - furosemide (LASIX) 40 mg tablet Take 40 mg by mouth twice daily. - ammonium lactate (LAC-HYDRIN) 12 % cream Apply to affected area as needed. - INSULIN DETEMIR (LEVEMIR FLEXPEN SUBCUTANEOUS) Inject subcutaneously. - magnesium hydroxide (MOM) 400 mg/5 mL suspension Take by mouth once daily as needed. - insulin aspart U-100 (NOVOLOG U-100 INSULIN ASPART) 100 unit/mL soln Inject subcutaneously. As directed - clopidogrel (PLAVIX) 75 mg tablet Take 75 mg by mouth once daily. - POTASSIUM ORAL Take by mouth. - aluminum-magnesium hydroxide-simethicone (RULOX) 200-200-20 mg/5 mL suspension Take by mouth every 6 hours as needed. - acarbose (PRECOSE) 100 mg tablet Take 100 mg by mouth three times daily with meals. - amitriptyline (ELAVIL) 25 mg tablet Take 25 mg by mouth daily at bedtime. - aspirin, enteric coated (ASPIRIN, ENTERIC COATED) 81 mg EC tablet Take 81 mg by mouth once daily. - atorvastatin (LIPITOR) 40 mg tablet Take 40 mg by mouth once daily. - VITAMIN B COMPLEX (B-COMPLEX ORAL) Take by mouth. - PSEUDOEPHEDRINE/ACETAMI NOPHEN (CEPACOL SORE THROAT ORAL) Take by mouth. - losartan (COZAAR) 100 mg tablet Take 100 mg by mouth once daily. - tamsulosin ER (FLOMAX) 0.4 mg cp24 Take 0.4 mg by mouth. - acetaminophen (TYLENOL) 325 mg tablet Take 650 mg by mouth every 6 hours as needed. - LIRAGLUTIDE (VICTOZA 2-LEO SUBCUTANEOUS) Inject subcutaneously. As directed - CALCIUM CARBONATE/VITAMIN D3 (VITAMIN D-3 ORAL) Take by mouth. - GABAPENTIN (NEURONTIN ORAL) Take 1 tablet by mouth three times daily. - MULTIVITAMIN (MULTIPLE VITAMIN ORAL) Take 1 tablet by mouth once daily. Problem List As Of Date 04/23/2022 Noted Resolved APPOINTMENT CANCELLED 07/13/2015 07/13/2015 Leukocytosis [D72.829] 03/25/2017 Anemia [D64.9] 03/25/2017 Stage 4 chronic kidney disease (HCC) [N18.4] 03/25/2017 Encounter Status:Closed by MATTHEW MAKI on 04/23/22 Normal [facility] Physician Orderon 04-23-2022 Physician Order [id number]#1.00C D:127 Normal [facility] RAD - MISCon 04-11-2022 [facility] [id number]#1.00C D:127 Normal [facility] - MISC [id number]#1.00C D:127 Normal [facility] Operative Reporton Operative Report [id number]#1.00C D:127 Normal [facility] Anisocytosis LM Ql (Bld)Orde red By: ENZO HARGROVE on 04-09-2022 Anisocytosis Ql (Bld) Marked [facility] Basic Metabolic Panelon Anion gap [Moles/Vol] 14.8 mmol/L Normal 6.0-15.0 [facility] Comment on above: Performed By: #### B MP ####[facility] [address] [place] [address] [facility] Calcium [Mass/Vol] 8.6 mg/dL Normal 8.2-10.2 [facility] Comment on above: Performed By: #### B MP ####[facility] [address] [place] [address] [facility] Chloride [Moles/Vol] 103 mmol/L Normal 95-114 [facility] Comment on above: Performed By: #### B MP ####[address] [place] [address] [facility] CO2 [Moles/Vol] 21.6 mmol/L Low 22.0-30.0 [facility] Comment on above: Performed By: #### B MP ####[address] [place] [address] [facility] Creatinine [Mass/Vol] 4.71 mg/dL High 0.64-1.[address] [facility] Comment on above: Performed By: #### B MP ####[address] [place] [address] [place] Creatinine Clr Calc Pharm[facility] 18.62 [facility] Comment on above: Result Comment: PERF ORMED BY:[address] [place], [place] [phone] MEDICAL DIRECTORCHRISTO PINO M.D. Performed By: #### B MP ####[address] [address] [facility] Estimated GFR ( Cristo 15 [facility] Comment on above: Result Comment: GFR estimated reference range: According to KDOQI guidelines, <60 ml/min/1.73m2 is sufficient to diagnose a patient with chronic kidney disease. Performed By: #### B MP ####[address] [address] [facility] Estimated GFR (Non- Am 12 [facility] Comment on above: Performed By: #### B MP ####[address] [address] [facility] Glucose [Mass/Vol] 104 mg/dL High 70-100 [facility] Comment on above: Result Comment: [place] om Glucose Reference Range is dependent on time and content of last meal. Glucose of more than 200 mg/dL in a nonstressed, ambulatory subject supports the diagnosis of Diabetes Mellitus. ADA recommended reference range Performed By: #### B MP ####[address] [address] [facility] Potassium [Moles/Vol] 5.4 mmol/L High 3.5-5.[address] [facility] Comment on above: Performed By: #### B MP ####[address] [place] [address] [facility] Sodium [Moles/Vol] 134 mmol/L Low 136-146 [facility] Comment on above: Performed By: #### B MP ####[facility] [place] [address] [facility] Urea nitrogen [Mass/Vol] 63 mg/dL High 9-23 [facility] Comment on above: Performed By: #### B MP ####[address] [place] [address] [facility] Basophils Auto (Bld) [#/Vol] Ordered By: ENZO HARGROVE on 04-09-2022 Basophils (Bld) [#/Vol] N/A [facility] Basophils/100 WBC Auto (Bld) Ordered By: ENZO HARGROVE on 04-09-2022 Basophils/100 WBC (Bld) N/A [facility] Cardiovascular Reporton Cardiovascular Report [id number] D:127 Normal [facility] Consultation Noteon 04-09-19 Consultation Note [id number]#1.00C D:127 Normal [facility] Creatinine and Glomerular fi ltration rate.predicted panel (S/P/Bld)Ordered By: ENZO HARGROVE on 04-09-2022 Creatinine [Mass/Vol] 4.71 mg/dL 0.64-1.[address] [facility] Diff and CBCon 04-09-2022 Anisocytosis Ql (Bld) Marked Normal [facility] Comment on above: Performed By: #### D IFF CBC ####[address] [place] [id number] [facility] Eosinophils/100 WBC (Bld) 9 % High 1-3 [facility] Comment on above: Performed By: #### D IFF CBC ####[address] [place] [address] [facility] Erythrocyte distribution width (RBC) [Ratio] 19.3 % High 12.0-14.8 [facility] Comment on above: Performed By: #### D IFF CBC ####[place] [id number] [facility] Giant Platelet Tally 9 /100{WBC} Normal Fir [facility] Comment on above: Performed By: #### D IFF CBC ####[address] Hematocrit (Bld) [Volume fraction] 31.8 % Low 38.8-50.0 [facility] Comment on above: Performed By: #### D IFF CBC ####[address] Hemoglobin (Bld) [Mass/Vol] 10.6 g/dL Low 13.0-17.0 [facility] Comment on above: Performed By: #### D IFF CBC ####[address] Hypochromasia Slight Normal [facility] Comment on above: Performed By: #### D IFF CBC ####[address] Large Platelets Moderate Normal [facility] Comment on above: Result Comment: PERF ORMED BY:[address] [place], [place] [phone] MEDICAL MOOSE PINO M.D. Performed By: #### D IFF CBC ####[place] [id number] [facility] Lymphocytes/100 WBC (Bld) 39 % Normal 18-42 [facility] Comment on above: Performed By: #### D IFF CBC ####[address] Macrocytosis Marked Normal [facility] Comment on above: Performed By: #### D IFF CBC ####[place] [id number] [facility] MCH (RBC) [Entitic mass] 34.3 pg Normal 27.5-35.2 [facility] Comment on above: Performed By: #### D IFF CBC ####[address] [address] [facility] MCV (RBC) [Entitic vol] 102.5 fL High 83.5-101 [facility] Comment on above: Performed By: #### D IFF CBC ####[address] [address] [facility] Mean Corpuscular HGB Conc 33.5 g/dL Normal 32.5-35.6 [facility] Comment on above: Performed By: #### D IFF CBC ####[place] [id number] [facility] Monocytes/100 WBC (Bld) 5 % Normal 2-11 [facility] Comment on above: Performed By: #### D IFF CBC ####[address] [address] [facility] Platelet Estimate Normal Normal Normal [facility] Comment on above: Performed By: #### D IFF CBC ####[address] [address] [facility] Platelet mean volume (Bld) [Entitic vol] 10.1 fL Normal 6.6-10.1 [facility] Comment on above: Result Comment: PERF ORMED BY:[address] [place], [place] [phone] MEDICAL MOOSE PINO M.D. Performed By: #### D IFF CBC ####[address] [address] [facility] Platelets (Bld) [#/Vol] 202 10*3/uL Normal 150-450 [facility] Comment on above: Performed By: #### D IFF CBC ####[address] [address] [facility] Polychromasia Slight Normal [facility] Comment on above: Performed By: #### D IFF CBC ####[address] RBC (Bld) [#/Vol] 3.10 10*6/uL Low 3.90-5.60 [facility] Comment on above: Performed By: #### D IFF CBC ####[place] [address] Reactive Lymphocytes 1 % Normal 0-12 [facility] Comment on above: Performed By: #### D IFF CBC ####[address] Segmented neutrophils/100 WBC (Bld) 46 % Low 50-70 [facility] Comment on above: Performed By: #### D IFF CBC ####[address] Target Cells Slight Normal [facility] Comment on above: Performed By: #### D IFF CBC ####[address] WBC (Bld) [#/Vol] 10.7 10*3/uL High 4.1-10.5 [facility] Comment on above: Performed By: #### D IFF CBC ####[address] Echocardiographyon Echocardiography [id number] D:127 Normal [facility] Eosinophils Auto (Bld) [#/Vo l]Ordered By: ENZO HARGROVE on 04-09-2022 Eosinophils (Bld) [#/Vol] N/A [facility] Eosinophils/100 WBC Auto (Bl d)Ordered By: ENZO HARGROVE on 04-09-2022 Eosinophils/100 WBC (Bld) N/A [facility] Eosinophils/100 WBC Manual c nt (Bld)Ordered By: ENZO HARGROVE on 04-09-2022 Eosinophils/100 WBC (Bld) 9 % 1-3 [facility] Erythrocyte distribution wid th Auto (RBC) [Ratio]Ordered By: ENZO HARGROVE on 04-09-2022 Erythrocyte distribution width (RBC) [Ratio] 19.3 % 12.0-14.8 [facility] Estimated glomerular filtrat ion rate (GFR) non- AmericanOrdered By: ENZO HARGROVE on 04-09-2022 GFR/1.73 sq M.predicted among non-blacks MDRD (S/P/Bld) [Vol rate/Area] 12 mL/Min [facility] FL urethrocystogram retroon 04-09-2022 FL urethrocystogram retro Normal [facility] Giant platelets/100 leukocyt es [Ratio] in Blood by Manual countOrdered By: ENZO HARGROVE on 04-09-2022 Giant platelets/100 WBC Manual cnt (Bld) [Ratio] 9 /100{WBC} [facility] Glucose Glucometer (BldC) [M ass/Vol]Ordered By: Kiko Corbett on 04-09-2022 Glucose [Mass/Vol] 122 mg/dL [facility] Comment on above: Random Glucose Refer ence Range is dependent on time and content of last meal. Glucose of more than 200 mg/dL in a nonstressed, ambulatory subject supports the diagnosis of Diabetes Mellitus. Glucose Poct Glucometerson 0 04-09-2022 Commemt1 Glu2: Cleaned Meter Normal [facility] Comment on above: Result Comment: PERF ORMED BY:[address] [place], [place] [phone] MEDICAL DIRECTORCHRISTO PINO M.D. Performed By: #### G JERRY ####Point of Care testing, Glucose [Mass/Vol] 122 mg/dL Normal [facility] Comment on above: Result Comment: [place] Glucose Reference Range is dependent on time and content of last meal. Glucose of more than 200 mg/dL in a nonstressed, ambulatory subject supports the diagnosis of Diabetes Mellitus. Performed By: #### G ZHENGLS ####Point of Care testing, Hematocrit Auto (Bld) [Volum e fraction]Ordered By: ENZO HARGROVE on 04-09-2022 Hematocrit (Bld) [Volume fraction] 31.8 % 38.8-50.0 [facility] Hemoglobin [Mass/volume] in BloodOrdered By: ENZO HARGROVE on 04-09-2022 Hemoglobin (Bld) [Mass/Vol] 10.6 g/dL 13.0-17.0 [facility] Hypochromia LM Ql (Bld)Order ed By: ENZO HARGROVE on 04-09-2022 Hypochromia Ql (Bld) Slight [facility] Leukocytes [#/volume] correc lakesha for nucleated erythrocytes in Blood by Automated counOrdered By: ENZO HARGROVE on 04-09-2022 WBC corrected for nucl RBC Auto (Bld) [#/Vol] 10.7 10*3/uL 4.1-10.5 [facility] Lymphocytes Auto (Bld) [#/Vo l]Ordered By: ENZO HARGROVE on 04-09-2022 Lymphocytes (Bld) [#/Vol] N/A [facility] Lymphocytes/100 WBC Auto (Bl d)Ordered By: ENZO HARGROVE on 04-09-2022 Lymphocytes/100 WBC (Bld) N/A [facility] Lymphocytes/100 WBC Manual c nt (Bld)Ordered By: ENZO HARGROVE on 04-09-2022 Lymphocytes/100 WBC (Bld) 39 % 18-42 [facility] MCH Auto (RBC) [Entitic mass ]Ordered By: ENZO HARGROVE on 04-09-2022 MCH (RBC) [Entitic mass] 34.3 pg 27.5-35.2 [facility] MCHC Auto (RBC) [Mass/Vol]Or dered By: ENZO HARGROVE on 04-09-2022 MCHC (RBC) [Mass/Vol] 33.5 g/dL 32.5-35.6 Fir [facility] MCV Auto (RBC) [Entitic vol] Ordered By: ENZO HARGROVE on 04-09-2022 MCV (RBC) [Entitic vol] 102.5 fL 83.5-101 [facility] Macrocytes LM Ql (Bld)Ordere d By: ENZO HARGROVE on 04-09-2022 Macrocytes Ql (Bld) Marked [facility] Monocytes Auto (Bld) [#/Vol] Ordered By: ENZO HARGROVE on 04-09-2022 Monocytes (Bld) [#/Vol] N/A [facility] Monocytes/100 WBC Auto (Bld) Ordered By: ENZO HARGROVE on 01-03-2023 Monocytes/100 WBC (Bld) N/A [facility] Monocytes/100 WBC Manual cnt (Bld)Ordered By: ENZO HARGROVE on 04-09-2022 Monocytes/100 WBC (Bld) 5 % 2-11 [facility] Neutrophils Auto (Bld) [#/Vo l]Ordered By: ENZO HARGROVE on 04-09-2022 Neutrophils (Bld) [#/Vol] N/A [facility] Neutrophils/100 WBC Auto (Bl d)Ordered By: ENZO HARGROVE on 04-09-2022 Neutrophils/100 WBC (Bld) N/A [facility] No Panel InformationOrdered By: Kiko Corbett on 04-09-2022 Bedside Glucose Comment Glu2: cleaned meter [facility] No Panel InformationOrdered By: ENZO HARGROVE on 04-09-2022 Estimated GFR () 15 mL/Min [facility] Comment on above: GFR estimated refere nce range: According to KDOQI guidelines, <60 ml/min/1.73m2 is sufficient to diagnose a patient with chronic kidney disease. Pharmacy Creatinine Clearance (Chem 18.62 [facility] Nucleated erythrocytes [Pres ence] in Blood by Automated countOrdered By: ENZO HARGROVE on 04-09-2022 Nucleated RBC Auto Ql (Bld) N/A [facility] Platelet adequacy [Presence] in Blood by Light microscopyOrdered By: ENZO HARGROVE on 04-09-2022 Platelets LM Ql (Bld) Normal Normal Fir [facility] Platelet mean volume Auto (B ld) [Entitic vol]Ordered By: ENZO HARGROVE on 04-09-2022 Platelet mean volume (Bld) [Entitic vol] 10.1 fL 6.6-10.1 [facility] Platelet morphology finding [Identifier] in BloodOrdered By: ENZO HARGROVE on 04-09-2022 Platelet morphology finding Nom (Bld) N/A [facility] Platelets Auto (Bld) [#/Vol] Ordered By: ENZO HARGROVE on 04-09-2022 Platelets (Bld) [#/Vol] 202 10*3/uL 150-450 [facility] Platelets Large [Presence] i n Blood by Light microscopyOrdered By: ENZO HARGROVE on 04-09-2022 Platelets Large LM Ql (Bld) Moderate [facility] Polychromasia [Presence] in Blood by Light microscopyOrdered By: ENZO HARGROVE on 04-09-2022 Polychromasia LM Ql (Bld) Slight [facility] RBC Auto (Bld) [#/Vol]Ordere d By: ENZO HARGROVE on 04-09-2022 RBC (Bld) [#/Vol] 3.10 10*6/uL 3.90-5.60 [facility] RBC morphologyOrdered By: CLAYTON HARGROVE on 04-09-2022 RBC morphology finding Nom (Bld) N/A [facility] Segmented neutrophils/100 WB C Manual cnt (Bld)Ordered By: ENZO HARGROVE on 04-09-2022 Segmented neutrophils/100 WBC (Bld) 46 % 50-70 [facility] Serum or plasma anion gap de terminationOrdered By: ENZO HARGROVE on 04-09-2022 Anion gap [Moles/Vol] 14.8 mmol/L 6.0-15.0 [facility] Serum or plasma calcium blaire urement (mass/volume)Ordered By: ENZO HARGROVE on 04-09-2022 Calcium [Mass/Vol] 8.6 mg/dL 8.2-10.2 [facility] Serum or plasma chloride melany surement (moles/volume)Ordered By: ENZO HARGROVE on 04-09-2022 Chloride [Moles/Vol] 103 mmol/L 95-114 [facility] Serum or plasma glucose blaire urement (mass/volume)Ordered By: ENZO HARGROVE on 04-09-2022 Glucose [Mass/Vol] 104 mg/dL 70-100 [facility] Comment on above: ADA recommended refe rence rangeRandom Glucose Reference Range is dependent on time and content of last meal. Glucose of more than 200 mg/dL in a nonstressed, ambulatory subject supports the diagnosis of Diabetes Mellitus. Serum or plasma potassium me asurement (moles/volume)Ordered By: ENZO HARGROVE on 04-09-2022 Potassium [Moles/Vol] 5.4 mmol/L 3.5-5.[address] [facility] Serum or plasma sodium measu rement (moles/volume)Ordered By: ENZO HARGROVE on 04-09-2022 Sodium [Moles/Vol] 134 mmol/L 136-146 [facility] Serum or plasma total carbon dioxide measurement (moles/volume)Ordered By: ENZO HARGROVE on 04-09-2022 CO2 [Moles/Vol] 21.6 mmol/L 22.0-30.0 [facility] Serum or plasma urea nitroge n measurement (mass/volume)Ordered By: ENZO HARGROVE on 04-09-2022 Urea nitrogen [Mass/Vol] 63 mg/dL 9-23 [facility] Target cellsOrdered By: MOISE HARGROVE on 04-09-2022 Target cells LM Ql (Bld) Slight [facility] Variant lymphocytes/100 WBC Manual cnt (Bld)Ordered By: ENZO HARGROVE on 04-09-2022 Variant lymphocytes/100 WBC (Bld) 1 % 0-12 [facility] WBC Auto (Bld) [#/Vol]Ordere d By: ENZO HARGROVE on 04-09-2022 WBC (Bld) [#/Vol] 10.7 10*3/uL 4.1-10.5 [facility] XR KUBon 04-09-2022 XR KUB Normal [facility] Diff and CBCon 03-22-2022 Additional Comments Normal [facility] Comment on above: Result Comment: 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 sample was warmed @ 37C in heat block for 1 hr to obtain cbc results and smear for diff count.PERFORMED BY:[address] [place], [place] [phone] MEDICAL DIRECTORCHRISTO PINO M.D. Performed By: #### D IFF CBC ####[address] [place] [address] [place] Anisocytosis Ql (Bld) Slight Normal Fir [facility] Comment on above: Performed By: #### D IFF CBC ####[address] [address] [place] Basophils/100 WBC (Bld) 0 % Normal 0-2 [facility] Comment on above: Performed By: #### D IFF CBC ####[address] [address] [place] Eosinophils/100 WBC (Bld) 9 % High 1-3 [facility] Comment on above: Performed By: #### D IFF CBC ####[id number] [facility] Erythrocyte distribution width (RBC) [Ratio] 18.7 % High 12.0-14.8 [facility] Comment on above: Performed By: #### D IFF CBC ####[address] Hematocrit (Bld) [Volume fraction] 26.7 % Low 38.8-50.0 [facility] Comment on above: Performed By: #### D IFF CBC ####[address] Hemoglobin (Bld) [Mass/Vol] 8.4 g/dL Low 13.0-17.0 [facility] Comment on above: Performed By: #### D IFF CBC ####[address] Lymphocytes/100 WBC (Bld) 29 % Normal 18-42 [facility] Comment on above: Performed By: #### D IFF CBC ####[address] MCH (RBC) [Entitic mass] 29.3 pg Normal 27.5-35.2 [facility] Comment on above: Performed By: #### D IFF CBC ####[address] MCV (RBC) [Entitic vol] 93.2 fL Normal 83.5-101 [facility] Comment on above: Performed By: #### D IFF CBC ####[id number] [facility] Mean Corpuscular HGB Conc 31.5 g/dL Low 32.5-35.6 [facility] Comment on above: Performed By: #### D IFF CBC ####[id number] [facility] Monocytes/100 WBC (Bld) 6 % Normal 2-11 [facility] Comment on above: Performed By: #### D IFF CBC ####[address] [address] [facility] Platelet Estimate Normal Normal Normal [facility] Comment on above: Performed By: #### D IFF CBC ####[address] [address] [facility] Platelet mean volume (Bld) [Entitic vol] 10.3 fL High 6.6-10.1 [facility] Comment on above: Result Comment: PERF ORMED BY:[address] [place] [phone] MEDICAL DIRECTORCHRISTO PINO M.D. Performed By: #### D IFF CBC ####[address] [address] [facility] Platelet Morphology Normal Normal Normal [facility] Comment on above: Result Comment: PERF ORMED BY:[address] [place], [place] [phone] MEDICAL DIRECTORCHRISTO PINO M.D. Performed By: #### D IFF CBC ####[address] [address] [facility] Platelets (Bld) [#/Vol] 208 10*3/uL Normal 150-450 [facility] Comment on above: Performed By: #### D IFF CBC ####[address] [address] [facility] Poikilocytosis Slight Normal [facility] Comment on above: Performed By: #### D IFF CBC ####[address] [address] [facility] Polychromasia Slight Normal [facility] Comment on above: Performed By: #### D IFF CBC ####[address] [address] [facility] RBC (Bld) [#/Vol] 2.87 10*6/uL Low 3.90-5.60 [facility] Comment on above: Performed By: #### D IFF CBC ####[facility] [address] [place] [address] [facility] Schistocytes Slight Normal [facility] Comment on above: Performed By: #### D IFF CBC ####[facility] [place] [address] [facility] Segmented neutrophils/100 WBC (Bld) 56 % Normal 50-70 [facility] Comment on above: Performed By: #### D IFF CBC ####[facility] [address] [place] [address] [facility] Spherocytes Slight Normal [facility] Comment on above: Performed By: #### D IFF CBC ####[facility] [address] [place] [address] [facility] Target Cells Slight Normal [facility] Comment on above: Performed By: #### D IFF CBC ####[facility] [address] [place] [address] [facility] WBC (Bld) [#/Vol] 11.1 10*3/uL High 4.1-10.5 [facility] Comment on above: Performed By: #### D IFF CBC ####[address] [place] [address] [facility] [employer] Record[employer] 03-22 [employer] [id number] D:127 Normal [facility] Anisocytosis LM Ql (Bld)Orde red By: Maye Bunting on 03-21-2022 Anisocytosis Ql (Bld) Slight [facility] Basophils Auto (Bld) [#/Vol] Ordered By: Maye Bunting on 03-21-2022 Basophils (Bld) [#/Vol] N/A [facility] Basophils/100 WBC Auto (Bld) Ordered By: Maye Bunting on 03-21-2022 Basophils/100 WBC (Bld) N/A [facility] Basophils/100 WBC Manual cnt (Bld)Ordered By: Maye Bunting on 03-21-2022 Basophils/100 WBC (Bld) 0 % 0-2 [facility] Eosinophils Auto (Bld) [#/Vo l]Ordered By: Maye Bunting on 03-21-2022 Eosinophils (Bld) [#/Vol] N/A [facility] Eosinophils/100 WBC Auto (Bl d)Ordered By: Maye Bunting on 03-21-2022 Eosinophils/100 WBC (Bld) N/A [facility] Eosinophils/100 WBC Manual c nt (Bld)Ordered By: Maye Bunting on 03-21-2022 Eosinophils/100 WBC (Bld) 9 % 1-3 [facility] Erythrocyte distribution wid th Auto (RBC) [Ratio]Ordered By: Maye Bunting on 03-21-2022 Erythrocyte distribution width (RBC) [Ratio] 18.7 % 12.0-14.8 [facility] Hematocrit Auto (Bld) [Volum e fraction]Ordered By: Maye Bunting on 03-21-2022 Hematocrit (Bld) [Volume fraction] 26.7 % 38.8-50.0 [facility] Hemoglobin [Mass/volume] in BloodOrdered By: Maye Bunting on 03-21-2022 Hemoglobin (Bld) [Mass/Vol] 8.4 g/dL 13.0-17.0 [facility] Leukocytes [#/volume] correc lakesha for nucleated erythrocytes in Blood by Automated counOrdered By: Maye Bunting on 03-21-2022 WBC corrected for nucl RBC Auto (Bld) [#/Vol] 11.1 10*3/uL 4.1-10.5 [facility] Lymphocytes Auto (Bld) [#/Vo l]Ordered By: Maye Bunting on 03-21-2022 Lymphocytes (Bld) [#/Vol] N/A [facility] Lymphocytes/100 WBC Auto (Bl d)Ordered By: Maye Bunting on 03-21-2022 Lymphocytes/100 WBC (Bld) N/A [facility] Lymphocytes/100 WBC Manual c nt (Bld)Ordered By: Maye Bunting on 03-21-2022 Lymphocytes/100 WBC (Bld) 29 % 18-42 [facility] MCH Auto (RBC) [Entitic mass ]Ordered By: Maye Bunting on 03-21-2022 MCH (RBC) [Entitic mass] 29.3 pg 27.5-35.2 [facility] MCHC Auto (RBC) [Mass/Vol]Or dered By: Maye Bunting on 03-21-2022 MCHC (RBC) [Mass/Vol] 31.5 g/dL 32.5-35.[address] [facility] MCV Auto (RBC) [Entitic vol] Ordered By: Maye Bunting on 03-21-2022 MCV (RBC) [Entitic vol] 93.2 fL 83.5-101 [facility] Monocytes Auto (Bld) [#/Vol] Ordered By: Maye Bunting on 03-21-2022 Monocytes (Bld) [#/Vol] N/A [facility] Monocytes/100 WBC Auto (Bld) Ordered By: Maye Bunting on 03-21-2022 Monocytes/100 WBC (Bld) N/A [facility] Monocytes/100 WBC Manual cnt (Bld)Ordered By: Maye Bunting on 03-21-2022 Monocytes/100 WBC (Bld) 6 % 2-11 [facility] Neutrophils Auto (Bld) [#/Vo l]Ordered By: Maye Bunting on 03-21-2022 Neutrophils (Bld) [#/Vol] N/A [facility] Neutrophils/100 WBC Auto (Bl d)Ordered By: Maye Bunting on 03-21-2022 Neutrophils/100 WBC (Bld) N/A [facility] No Panel InformationOrdered By: Maye Bunting on 03-21-2022 CBC Comment See comment [facility] Comment on above: agglutination observ ed on slide 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 sample was warmed @ 37C in heat block for ~1 hrto obtain cbc results and smear for diff count. Nucleated erythrocytes [Pres ence] in Blood by Automated countOrdered By: Maye Bunting on 03-21-2022 Nucleated RBC Auto Ql (Bld) N/A [facility] Platelet adequacy [Presence] in Blood by Light microscopyOrdered By: Maye Bunting on 03-21-2022 Platelets LM Ql (Bld) Normal Normal [facility] Platelet mean volume Auto (B ld) [Entitic vol]Ordered By: Maye Bunting on 03-21-2022 Platelet mean volume (Bld) [Entitic vol] 10.3 fL 6.6-10.1 [facility] Platelet morphology finding [Identifier] in BloodOrdered By: Maye Bunting on 03-21-2022 Platelet morphology finding Nom (Bld) Normal Normal [facility] Platelets Auto (Bld) [#/Vol] Ordered By: Maye Bunting on 03-21-2022 Platelets (Bld) [#/Vol] 208 10*3/uL 150-450 [facility] Poikilocytosis [Presence] in Blood by Light microscopyOrdered By: Maye Bunting on 03-21-2022 Poikilocytosis LM Ql (Bld) Slight [facility] Polychromasia [Presence] in Blood by Light microscopyOrdered By: Maye Bunting on 03-21-2022 Polychromasia LM Ql (Bld) Slight [facility] RBC Auto (Bld) [#/Vol]Ordere d By: Maye Bunting on 03-21-2022 RBC (Bld) [#/Vol] 2.87 10*6/uL 3.90-5.60 [facility] RBC morphologyOrdered By: Da rrin Bunting on 03-21-2022 RBC morphology finding Nom (Bld) N/A [facility] Schistocytes [Presence] in B lood by Light microscopyOrdered By: Maye Bunting on 03-21-2022 Schistocytes LM Ql (Bld) Slight [facility] Segmented neutrophils/100 WB C Manual cnt (Bld)Ordered By: Maye Bunting on 03-21-2022 Segmented neutrophils/100 WBC (Bld) 56 % 50-70 [facility] Spherocytes [Presence] in Bl ood by Light microscopyOrdered By: Maye Bunting on 03-21-2022 Spherocytes LM Ql (Bld) Slight [facility] Target cellsOrdered By: Aiden in Bunting on 03-21-2022 Target cells LM Ql (Bld) Slight [facility] WBC Auto (Bld) [#/Vol]Ordere d By: Maye Bunting on 03-21-2022 WBC (Bld) [#/Vol] 11.1 10*3/uL 4.1-10.5 [facility] RAD - Ultrasound Reporton RAD - Ultrasound Report [id number] D:127 Normal [facility] US renal BIon 03-14-2022 US renal BI Normal [facility] Anisocytosis LM Ql (Bld)Orde red By: Maye Bunting on 03-08-2022 Anisocytosis Ql (Bld) Moderate [facility] Basophils Auto (Bld) [#/Vol] Ordered By: Maye Bunting on 03-08-2022 Basophils (Bld) [#/Vol] N/A [facility] Basophils/100 WBC Auto (Bld) Ordered By: Maye Bunting on 03-08-2022 Basophils/100 WBC (Bld) N/A [facility] Basophils/100 WBC Manual cnt (Bld)Ordered By: Maye Bunting on 03-08-2022 Basophils/100 WBC (Bld) 0 % 0-2 [facility] Diff and CBCon 03-08-2022 Additional Comments Normal [facility] Comment on above: Result Comment: prew armed sample due to MCV > 37. 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 Performed By: #### D IFF CBC ####[address] [place] [address] [facility] Anisocytosis Ql (Bld) Moderate Normal [facility] Comment on above: Performed By: #### D IFF CBC ####[facility] [address] [place] [address] [place] Basophils/100 WBC (Bld) 0 % Normal 0-2 [facility] Comment on above: Performed By: #### D IFF CBC ####[address] [place] [address] [place] Eosinophils/100 WBC (Bld) 2 % Normal 1-3 [facility] Comment on above: Performed By: #### D IFF CBC ####[address] Erythrocyte distribution width (RBC) [Ratio] 18.4 % High 12.0-14.8 [facility] Comment on above: Performed By: #### D IFF CBC ####[address] Hematocrit (Bld) [Volume fraction] 27.5 % Low 38.8-50.0 [facility] Comment on above: Performed By: #### D IFF CBC ####[address] Hemoglobin (Bld) [Mass/Vol] 8.6 g/dL Low 13.0-17.0 [facility] Comment on above: Performed By: #### D IFF CBC ####[address] Hypochromasia Slight Normal [facility] Comment on above: Performed By: #### D IFF CBC ####[address] Lymphocytes/100 WBC (Bld) 37 % Normal 18-42 [facility] Comment on above: Performed By: #### D IFF CBC ####[address] MCH (RBC) [Entitic mass] 28.3 pg Normal 27.5-35.2 [facility] Comment on above: Performed By: #### D IFF CBC ####[id number] [facility] MCV (RBC) [Entitic vol] 90.5 fL Normal 83.5-101 [facility] Comment on above: Performed By: #### D IFF CBC ####[id number] [facility] Mean Corpuscular HGB Conc 31.3 g/dL Low 32.5-35.6 [facility] Comment on above: Performed By: #### D IFF CBC ####[address] [place] [address] [facility] Monocytes/100 WBC (Bld) 8 % Normal 2-11 [facility] Comment on above: Performed By: #### D IFF CBC ####[address] [place] [address] [facility] Nucleated Red Blood Cell 0 /100{WBC} Normal 0-0 [facility] Comment on above: Performed By: #### D IFF CBC ####[facility] [address] [place] [address] [facility] Platelet Estimate Normal Normal Normal [facility] Comment on above: Performed By: #### D IFF CBC ####[address] [address] [facility] Platelet mean volume (Bld) [Entitic vol] 9.7 fL Normal 6.6-10.1 [facility] Comment on above: Result Comment: PERF ORMED BY:[address] [place], [place] [phone] MEDICAL MOOSE PINO M.D. Performed By: #### D IFF CBC ####[address] [place] [address] [facility] Platelet Morphology Normal Normal Normal [facility] Comment on above: Performed By: #### D IFF CBC ####[address] [address] [facility] Platelets (Bld) [#/Vol] 184 10*3/uL Normal 150-450 [facility] Comment on above: Performed By: #### D IFF CBC ####[address] [address] [facility] Poikilocytosis Moderate Normal [facility] Comment on above: Performed By: #### D IFF CBC ####[address] [address] [facility] RBC (Bld) [#/Vol] 3.04 10*6/uL Low 3.90-5.60 [facility] Comment on above: Performed By: #### D IFF CBC ####[facility] [address] [place] [address] [facility] Schistocytes Slight Normal [facility] Comment on above: Performed By: #### D IFF CBC ####[address] [address] [facility] Segmented neutrophils/100 WBC (Bld) 53 % Normal 50-70 [facility] Comment on above: Performed By: #### D IFF CBC ####[facility] [address] [place] [address] [facility] Smudge Cells Slight Normal [facility] Comment on above: Performed By: #### D IFF CBC ####[facility] [address] [place] [address] [facility] Spherocytes Slight Normal [facility] Comment on above: Performed By: #### D IFF CBC ####[address] [address] [facility] Target Cells Slight Normal [facility] Comment on above: Performed By: #### D IFF CBC ####[facility] [address] [place] [address] [facility] Tear Drop Cells Slight [facility] Comment on above: Performed By: #### D IFF CBC ####[facility] [address] [place] [address] [facility] WBC (Bld) [#/Vol] 11.4 10*3/uL High 4.1-10.5 [facility] Comment on above: Performed By: #### D IFF CBC ####[address] [address] [place] Eosinophils Auto (Bld) [#/Vo l]Ordered By: Maye Murray on 03-08-2022 Eosinophils (Bld) [#/Vol] N/A [facility] Eosinophils/100 WBC Auto (Bl d)Ordered By: Maye Murray on 03-08-2022 Eosinophils/100 WBC (Bld) N/A [facility] Eosinophils/100 WBC Manual c nt (Bld)Ordered By: Maye Murray on 03-08-2022 Eosinophils/100 WBC (Bld) 2 % 1-3 [facility] Erythrocyte distribution wid th Auto (RBC) [Ratio]Ordered By: Maye Bunting on 03-08-2022 Erythrocyte distribution width (RBC) [Ratio] 18.4 % 12.0-14.8 [facility] Hematocrit Auto (Bld) [Volum e fraction]Ordered By: Maye Bunting on 03-08-2022 Hematocrit (Bld) [Volume fraction] 27.5 % 38.8-50.0 [facility] Hemoglobin [Mass/volume] in BloodOrdered By: Maye Bunting on 03-08-2022 Hemoglobin (Bld) [Mass/Vol] 8.6 g/dL 13.0-17.0 [facility] Hypochromia LM Ql (Bld)Order ed By: Myae Bunting on 03-08-2022 Hypochromia Ql (Bld) Slight [facility] Leukocytes [#/volume] correc lakesha for nucleated erythrocytes in Blood by Automated counOrdered By: Maye Bunting on 03-08-2022 WBC corrected for nucl RBC Auto (Bld) [#/Vol] 11.4 10*3/uL 4.1-10.5 [facility] Lymphocytes Auto (Bld) [#/Vo l]Ordered By: Maye Bunting on 03-08-2022 Lymphocytes (Bld) [#/Vol] N/A [facility] Lymphocytes/100 WBC Auto (Bl d)Ordered By: Maye Bunting on 03-08-2022 Lymphocytes/100 WBC (Bld) N/A [facility] Lymphocytes/100 WBC Manual c nt (Bld)Ordered By: Maye Bunting on 03-08-2022 Lymphocytes/100 WBC (Bld) 37 % 18-42 [facility] MCH Auto (RBC) [Entitic mass ]Ordered By: Maye Bunting on 03-08-2022 MCH (RBC) [Entitic mass] 28.3 pg 27.5-35.2 [facility] MCHC Auto (RBC) [Mass/Vol]Or dered By: Maye Bunting on 03-08-2022 MCHC (RBC) [Mass/Vol] 31.3 g/dL 32.5-35.[address] [facility] MCV Auto (RBC) [Entitic vol] Ordered By: Maye Bunting on 03-08-2022 MCV (RBC) [Entitic vol] 90.5 fL 83.5-101 [facility] Monocytes Auto (Bld) [#/Vol] Ordered By: Maye Bunting on 03-08-2022 Monocytes (Bld) [#/Vol] N/A [facility] Monocytes/100 WBC Auto (Bld) Ordered By: Maye Bunting on 03-08-2022 Monocytes/100 WBC (Bld) N/A [facility] Monocytes/100 WBC Manual cnt (Bld)Ordered By: Maye Bunting on 03-08-2022 Monocytes/100 WBC (Bld) 8 % 2-11 [facility] Neutrophils Auto (Bld) [#/Vo l]Ordered By: Maye Bunting on 03-08-2022 Neutrophils (Bld) [#/Vol] N/A [facility] Neutrophils/100 WBC Auto (Bl d)Ordered By: Maye Bunting on 03-08-2022 Neutrophils/100 WBC (Bld) N/A [facility] No Panel InformationOrdered By: Maye Bunting on 03-08-2022 CBC Comment See comment [facility] Comment on above: prewarmed sample due to MCV > 37. 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 Nucleated RBC/100 WBC Manual cnt (Bld) [Ratio]Ordered By: Maye Bunting on 03-08-2022 Nucleated RBC/100 WBC (Bld) [Ratio] 0 /100{WBC} 0-0 [facility] Nucleated erythrocytes [Pres ence] in Blood by Automated countOrdered By: Maye Bunting on 03-08-2022 Nucleated RBC Auto Ql (Bld) N/A [facility] Platelet adequacy [Presence] in Blood by Light microscopyOrdered By: Maye Bunting on 03-08-2022 Platelets LM Ql (Bld) Normal Normal [facility] Platelet mean volume Auto (B ld) [Entitic vol]Ordered By: Maye Bunting on 03-08-2022 Platelet mean volume (Bld) [Entitic vol] 9.7 fL 6.6-10.1 [facility] Platelet morphology finding [Identifier] in BloodOrdered By: Maye Bunting on 03-08-2022 Platelet morphology finding Nom (Bld) Normal Normal [facility] Platelets Auto (Bld) [#/Vol] Ordered By: Maye Bunting on 03-08-2022 Platelets (Bld) [#/Vol] 184 10*3/uL 150-450 [facility] Poikilocytosis [Presence] in Blood by Light microscopyOrdered By: Maye Bunting on 03-08-2022 Poikilocytosis LM Ql (Bld) Moderate [facility] RBC Auto (Bld) [#/Vol]Ordere d By: Maye Bunting on 03-08-2022 RBC (Bld) [#/Vol] 3.04 10*6/uL 3.90-5.60 [facility] RBC morphologyOrdered By: Da rrin Bunting on 03-08-2022 RBC morphology finding Nom (Bld) N/A [facility] Schistocytes [Presence] in B lood by Light microscopyOrdered By: Maye Bunting on 03-08-2022 Schistocytes LM Ql (Bld) Slight [facility] Segmented neutrophils/100 WB C Manual cnt (Bld)Ordered By: Maye Bunting on 03-08-2022 Segmented neutrophils/100 WBC (Bld) 53 % 50-70 [facility] Smudge cell detectionOrdered By: Maye Bunting on 03-08-2022 Smudge cells LM Ql (Bld) Slight [facility] Spherocytes [Presence] in Bl ood by Light microscopyOrdered By: Maye Bunting on 03-08-2022 Spherocytes LM Ql (Bld) Slight [facility] Target cellsOrdered By: Aiden in Bunting on 03-08-2022 Target cells LM Ql (Bld) Slight [facility] Teardrop cell detectionOrder ed By: Maye Bunting on 03-08-2022 Dacrocytes LM Ql (Bld) Slight [facility] WBC Auto (Bld) [#/Vol]Ordere d By: Maye Bunting on 03-08-2022 WBC (Bld) [#/Vol] 11.4 10*3/uL 4.1-10.5 [facility] NM mateo perf SPECT rest stron 03-06-2022 NM mateo perf SPECT rest str Normal [facility] No Panel Informationon 03-06 Normal [facility] [employer] peña 250 DO Work Phone: ECH echo transthoracicon ECH echo transthoracic Normal Fi [facility] No Panel Informationon 03-05 [facility] [employer] peña 250 DO Work Phone: [facility] Snuppsy 250 DO Work Phone: STR cardiac stress/lexiscano n 03-05-2022 STR cardiac stress/lexiscan Normal [facility] Height or Weight NOT Doneon 02-21-2022 Fall risk assessment b) One or more fall s in the last year [facility] YR.MRKT 250 DO Work Phone: Tobacco use status CPHS b) No M [facility] YR.MRKT 250 DO Work Phone: Office Visit (Cardiology)on 02-21-2022 Follow-up visit Diagnoses/Problems Assessed CKD stage 4 due to type 2 diabetes mellitus (250.40,585.4) (E11.22,N18.4) Preoperative cardiovascular examination (V72.81) (Z01.810) Atherosclerosis of [place] coronary artery of [place] heart without angina pectoris (414.01) (I25.10) Diabetes (250.00) (E11.9) Diabetic neuropathy (250.60,357.2) (E11.40) Hypertension (401.9) (I10) Mixed hyperlipidemia (272.2) (E78.2) Hyperkalemia (276.7) (E87.5) Foot ulcer, right (707.15) (L97.519) Patient new to provider Current smoker (305.1) (F17.200) 1 pack every 3 days S/P splenectomy (V45.79) (Z90.81) History of Chronic venous stasis (459.81) (I87.8) Unable to transfer from wheelchair to chair (781.99) (Z74.09) Orders Atherosclerosis of [place] coronary artery of [place] heart without angina pectoris, CKD stage 4 due to type 2 diabetes mellitus, Diabetes, Diabetic neuropathy, Hypertension, Mixed hyperlipidemia, Preoperative cardiovascular examination Echocardiogram; Status:Hold For - Scheduling,Retrospectiv e Authorization; Requested for:21Feb2022; NM Cardiac Stress/Rest Nuclear Med Order; Status:Hold For - Scheduling,Retrospectiv e Authorization; Requested for:21Feb2022; Radiologist to Determine Optimal Study : Y What are the patient's signs and symptoms? : POC, cad Preoperative cardiovascular examination IO EKG Electrocardiogram- 12 Lead; Status:Complete; Done: 21Feb2022 SocHx: Current smoker You need to quit smoking.; Status:Complete - Retrospective Authorization; Done: 21Feb2022 You need to stop smoking. Though it is not easy, more than half of all adult smokers have quit. We encourage you to write down all the reasons you should quit smoking and set a quit date for yourself. Ask us how we can help. You may also call 9-142-QGUGNOW for free resources and assistance.; Status:Complete - Retrospective Authorization; Done: 21Feb2022 Tobacco Use Screening; Status:Complete; Done: 21Feb2022 Patient Instructions Please bring all medicines, vitamins, and herbal supplements with you when you come to the office. Prescriptions will not be filled unless you are compliant with your follow up appointments or have a follow up appointment scheduled as per instruction of your physician. Refills should be requested at the time of your visit. Fall Prevention Education Given Follow up as needed only unless testing abnormal POC pending lexiscan and echo. POC will need to go to Dr. Corbett Chief Complaint SIMON LOTT is being seen for a cardiovascular evaluation of pre-operative clearance. History of Present Illness Patient is new to this provider. He resides in a [facility], and has multiple cardiac risk factors including insulin-dependent diabetes. He is being seen in cardiology consultation regarding preoperative cardiac risk assessment at the request of Dr. Kiko Bartlett, urology, procedure plan is cystoscopy under anesthesia, with laser/basket and left ureteral stent? And EKG during office visit December 2021 showed sinus tachycardia right bundle branch block, and nonspecific ST-T abnormalities. Patient reports no chest pressure tightness heaviness palpitations lightheadedness presyncope syncope orthopnea or falls. Problem is that his activity level is very limited gets around in a wheelchair, [facility]. He is status post left transmetatarsal amputation, and his right foot is bandaged completely, for a nonhealing ulcer, which has been there for about 4 to 5 months. Followed by wound nurse once a week at the [facility]. Continues to smoke. EKG today normal sinus rhythm 90 bpm TN interval 180 ms QRS duration 112 ms QTC 442 ms incomplete right bundle branch block left axis deviation overall pattern is unchanged compared to a previous EKG from January 2022, compared to EKG from December 2021 heart rate has decreased. Left atrial abnormality is noted. Cannot exclude septal myocardial infarction. Patient is status post left transmetatarsal amputation, is surgery center to be scheduled for February 26, his blood pressure is above target 144/78, his laboratory data show GFR of 22 potassium 5.4 creatinine clearance of 26, glucose 101, hemoglobin 10.1 hematocrit 31.7 MCV 88 blood cell count 12.7 thousand platelet count 225k. Most of the laboratory data are from November 2021. BMP from January 11, 2022 shows BUN of 57 creatinine of 3.84 potassium 5.4 GFR of 16. Assessment: 1. Asymptomatic diabetes 2. Hypertension 3. Chronically disease stage IV-either related to hypertension or diabetes or both 4. Evidence of peripheral vascular disease characterized by left foot transmetatarsal amputation, nonhealing wound right lower extremity predominantly the foot, I was unable to Doppler distal pulses in his left foot the right foot is bandaged, part of the reason is that his skin is very hard, either from chronic venous stasis or other reasons. 5. Abnormal EKG showing right bundle branch block left axis deviation and small septal Q waves and left atr (more content not included)... Normal [facility] ECG 12-Leadon 02-18-2022 ECG 12-Lead [id number]#1.00C D:127 Normal [facility] Formson 01-17-2022 Forms [id number] D:127 Normal [facility] Lab Reportson 01-16-2022 Lab Reports [id number] D:127 Normal [facility] Lab Reports [id number] D:127 Normal [facility] Basic Metabolic Panelon 10-0 Anion gap [Moles/Vol] 19.1 mmol/L High 6.0-15.0 [facility] Comment on above: Performed By: #### B MP ####[address] [address] [facility] Calcium [Mass/Vol] 8.8 mg/dL Normal 8.2-10.2 [facility] Comment on above: Result Comment: PERF ORMED BY:[address] [place], [place] [id number] MEDICAL DIRECTORCHRISTO PINO M.D. Performed By: #### B MP ####[address] [address] [facility] Chloride [Moles/Vol] 102 mmol/L Normal 95-114 [facility] Comment on above: Performed By: #### B MP ####[place] [id number] [facility] CO2 [Moles/Vol] 23.3 mmol/L Normal 22.0-30.0 [facility] Comment on above: Performed By: #### B MP ####[address] [address] [facility] Creatinine [Mass/Vol] 3.84 mg/dL High 0.64-1.[address] [facility] Comment on above: Performed By: #### B MP ####[address] [address] [facility] Estimated GFR ( Cristo 19 Normal [facility] Comment on above: Result Comment: GFR estimated reference range: According to KDOQI guidelines, <60 ml/min/1.73m2 is sufficient to diagnose a patient with chronic kidney disease. Performed By: #### B MP ####[place] [id number] [facility] Estimated GFR (Non- Am 16 Normal [facility] Comment on above: Performed By: #### B MP ####[place] [address] [place] [address] [facility] Glucose [Mass/Vol] 105 mg/dL High 70-100 [facility] Comment on above: Result Comment: [place] Glucose Reference Range is dependent on time and content of last meal. Glucose of more than 200 mg/dL in a nonstressed, ambulatory subject supports the diagnosis of Diabetes Mellitus. ADA recommended reference range Performed By: #### B MP ####[place] [address] [place] [address] [facility] Potassium [Moles/Vol] 5.4 mmol/L High 3.5-5.[address] [facility] Comment on above: Performed By: #### B MP ####[place] [id number] [facility] Sodium [Moles/Vol] 139 mmol/L Normal 136-146 [facility] Comment on above: Performed By: #### B MP ####[place] [address] [place] [address] [facility] Urea nitrogen [Mass/Vol] 57 mg/dL High 9-23 [facility] Comment on above: Performed By: #### B MP ####[place] [id number] [facility] Basophils Auto (Bld) [#/Vol] Ordered By: Kiko Corbett on 01-11-2022 Basophils (Bld) [#/Vol] N/A [facility] Basophils/100 WBC Auto (Bld) Ordered By: Kiko Corbett on 01-11-2022 Basophils/100 WBC (Bld) N/A [facility] Blood anisocytosis detection Ordered By: Kiko Corbett on 01-11-2022 Anisocytosis Ql (Bld) Moderate [facility] Blood hemoglobin measurement (mass/volume)Ordered By: Kiko Corbett on 01-11-2022 Hemoglobin (Bld) [Mass/Vol] 10.1 g/dL 13.0-17.0 [facility] Blood leukocytes automated c ount (number/volume)Ordered By: Kiko Corbett on 01-11-2022 WBC (Bld) [#/Vol] 12.7 10*3/uL 4.5-11.0 [facility] SARS-CoV-2 (COVID-19) RNA JAYMIE+probe Ql (Unsp spec) Negative Normal Negative [facility] Comment on above: Order Comment: Healt hcare Worker?: N Result Comment: Test ing for SARS-CoV-2 by RT-PCR This test was developed and its performance characteristics determined by [employer] ([employer]) and validated at the [facility]. This test has not been FDA cleared or approved. This test has been authorized by FDA under an Emergency Use Authorization (EUA). This test has been validated in accordance with the FDA's Guidance Document (Policy for Diagnostics Testing in Laboratories Certified to Perform High Complexity Testing under CLIA prior to Emergency Use Authorization for Coronavirus Disease-2019 during the Public Health Emergency) issued on July 08, 2019. This test is only authorized for the duration of time the declaration that circumstances exist justifying the authorization of the emergency use of in vitro diagnostic tests for detection of SARS-CoV-2 virus and/or diagnosis of COVID-19 infection under section 564(b)(1) of the Act, 21 U.S.C. 360bbb-3(b)(1), unless the authorization is terminated or revoked sooner.PERFORMED BY:[facility] [place], [place] [id number] MEDICAL MOOSE PINO M.D. Performed By: #### C OVID 19 [facility] ####[facility] [facility] [address] [facility] COVID-19 Positive/NegativeOr dered By: Kiko Corbett on 01-11-2022 SARS-CoV-2 (COVID-19) N gene JAYMIE+probe Ql (Resp) Negative Negative [facility] Comment on above: Testing for SARS-CoV -2 by RT-PCRThis test was developed and its performance characteristics determined by [employer] ([employer]) and validated at the [facility]. This test has not been FDA cleared or approved. This test has been authorized by FDA under an Emergency Use Authorization (EUA). This test has been validated in accordance with the FDA's Guidance Document (Policy for Diagnostics Testing in Laboratories Certified to Perform High Complexity Testing under CLIA prior to Emergency Use Authorization for Coronavirus Disease-2019 during the Public Health Emergency) issued on July 08, 2019. This test is only authorized for the duration of time the declaration that circumstances exist justifying the authorization of the emergency use of in vitro diagnostic tests for detection of SARS-CoV-2 virus and/or diagnosis of COVID-19 infection under section 564(b)(1) of the Act, 21 U.S.C. 360bbb-3(b)(1), unless the authorization is terminated or revoked sooner. Creatinine and Glomerular fi ltration rate.predicted panel (S/P/Bld)Ordered By: Kiko Corbett on 01-11-2022 Creatinine [Mass/Vol] 3.84 mg/dL 0.64-1.[address] [facility] Diff and CBCon 01-11-2022 Anisocytosis Ql (Bld) Moderate Normal [facility] Comment on above: Performed By: #### D IFF CBC ####[place] [address] Eosinophils/100 WBC (Bld) 2 % Normal 1-3 [facility] Comment on above: Performed By: #### D IFF CBC ####[place] [id number] [facility] Erythrocyte distribution width (RBC) [Ratio] 20.5 % High 12.0-14.8 [facility] Comment on above: Performed By: #### D IFF CBC ####[place] [address] [place] [address] [facility] Hematocrit (Bld) [Volume fraction] 31.7 % Low 38.8-50.0 [facility] Comment on above: Performed By: #### D IFF CBC ####[place] [address] [place] [address] [facility] Hemoglobin (Bld) [Mass/Vol] 10.1 g/dL Low 13.0-17.0 [facility] Comment on above: Performed By: #### D IFF CBC ####[place] [id number] [facility] Large Platelets Moderate Normal [facility] Comment on above: Result Comment: PERF ORMED BY:[place] [address] [place], [place] [phone] MEDICAL DIRECTORCHRISTO PINO M.D. Performed By: #### D IFF CBC ####[place] [id number] [facility] Lymphocytes/100 WBC (Bld) 42 % Normal 18-42 [facility] Comment on above: Performed By: #### D IFF CBC ####[address] MCH (RBC) [Entitic mass] 28.0 pg Normal 27.5-35.2 [facility] Comment on above: Performed By: #### D IFF CBC ####[place] [id number] [facility] MCV (RBC) [Entitic vol] 87.9 fL Normal 83.5-101 [facility] Comment on above: Performed By: #### D IFF CBC ####[address] Mean Corpuscular HGB Conc 31.9 g/dL Low 32.5-35.6 [facility] Comment on above: Performed By: #### D IFF CBC ####[place] [id number] [facility] Monocytes/100 WBC (Bld) 10 % Normal 2-11 [facility] Comment on above: Performed By: #### D IFF CBC ####[place] [id number] [facility] Nucleated RBC/100 WBC (Bld) [Ratio] 0.1 % Normal 0-0.5 [facility] Comment on above: Performed By: #### D IFF CBC ####[place] [id number] [facility] Platelet Estimate Normal Normal Normal [facility] Comment on above: Performed By: #### D IFF CBC ####[address] [address] [facility] Platelet mean volume (Bld) [Entitic vol] 10.4 fL High 6.6-10.1 [facility] Comment on above: Performed By: #### D IFF CBC ####[address] [address] [facility] Platelets (Bld) [#/Vol] 225 10*3/uL Normal 150-450 [facility] Comment on above: Performed By: #### D IFF CBC ####[address] [address] [facility] Poikilocytosis Moderate Normal [facility] Comment on above: Performed By: #### D IFF CBC ####[place] [id number] [facility] RBC (Bld) [#/Vol] 3.60 10*6/uL Low 3.90-5.60 [facility] Comment on above: Performed By: #### D IFF CBC ####[address] [address] [facility] Schistocytes Slight Normal [facility] Comment on above: Performed By: #### D IFF CBC ####[place] [id number] [facility] Segmented neutrophils/100 WBC (Bld) 46 % Low 50-70 [facility] Comment on above: Performed By: #### D IFF CBC ####[address] [address] [facility] Target Cells Marked Normal [facility] Comment on above: Performed By: #### D IFF CBC ####[address] [address] [facility] WBC (Bld) [#/Vol] 12.7 10*3/uL High 4.5-11.0 [facility] Comment on above: Performed By: #### D IFF CBC ####[facility] [address] [place] [address] [facility] ECG 12 lead ECGon 01-11-2022 ECG 12 lead ECG Normal [facility] Eosinophils Auto (Bld) [#/Vo l]Ordered By: Kiko Corbett on 01-11-2022 Eosinophils (Bld) [#/Vol] N/A [facility] Eosinophils/100 WBC Auto (Bl d)Ordered By: Kiko Corbett on 01-11-2022 Eosinophils/100 WBC (Bld) N/A [facility] Erythrocyte distribution wid th Auto (RBC) [Ratio]Ordered By: Kiko Corbett on 01-11-2022 Erythrocyte distribution width (RBC) [Ratio] 20.5 % 12.0-14.8 [facility] Estimated glomerular filtrat ion rate (GFR) non- AmericanOrdered By: Kiko Corbett on 01-11-2022 GFR/1.73 sq M.predicted among non-blacks MDRD (S/P/Bld) [Vol rate/Area] 16 mL/Min [facility] Hematocrit Auto (Bld) [Volum e fraction]Ordered By: Kiko Corbett on 01-11-2022 Hematocrit (Bld) [Volume fraction] 31.7 % 38.8-50.0 [facility] - Hematology and Cell countsOrdered By: Kiko Corbett on 01-11-2022 Nucleated RBC/100 WBC (Bld) [Ratio] 0.1 % 0-0.5 [facility] Lymphocytes Auto (Bld) [#/Vo l]Ordered By: Kiko Corbett on 01-11-2022 Lymphocytes (Bld) [#/Vol] N/A [facility] Lymphocytes/100 WBC Auto (Bl d)Ordered By: Kiko Corbett on 01-11-2022 Lymphocytes/100 WBC (Bld) N/A [facility] Lymphocytes/100 WBC (Bld) 42 % 18-42 [facility] MCH Auto (RBC) [Entitic mass ]Ordered By: Kiko Corbett on 01-11-2022 MCH (RBC) [Entitic mass] 28.0 pg 27.5-35.2 [facility] MCHC Auto (RBC) [Mass/Vol]Or dered By: Kiko Corbett on 01-11-2022 MCHC (RBC) [Mass/Vol] 31.9 g/dL 32.5-35.6 Fir [facility] MCV Auto (RBC) [Entitic vol] Ordered By: Kiko Corbett on 01-11-2022 MCV (RBC) [Entitic vol] 87.9 fL 83.5-101 [facility] Monocyte %Ordered By: Kiko Corbett on 01-11-2022 Monocytes/100 WBC (Bld) 2 % 1-3 [facility] Monocytes Auto (Bld) [#/Vol] Ordered By: Kiko Corbett on 01-11-2022 Monocytes (Bld) [#/Vol] N/A [facility] Monocytes/100 WBC Auto (Bld) Ordered By: Kiko Corbett on 01-11-2022 Monocytes/100 WBC (Bld) N/A [facility] Monocytes/100 WBC Manual cnt (Bld)Ordered By: Kiko Corbett on 01-11-2022 Monocytes/100 WBC (Bld) 10 % 2-11 [facility] Neutrophils Auto (Bld) [#/Vo l]Ordered By: Kiko Corbett on 01-11-2022 Neutrophils (Bld) [#/Vol] N/A [facility] Neutrophils/100 WBC Auto (Bl d)Ordered By: Kiko Corbett on 01-11-2022 Neutrophils/100 WBC (Bld) N/A [facility] No Panel InformationOrdered By: Kiko Corbett on 01-11-2022 Estimated GFR () 19 mL/Min [facility] Comment on above: GFR estimated refere nce range: According to KDOQI guidelines, <60 ml/min/1.73m2 is sufficient to diagnose a patient with chronic kidney disease. Large Platelets Moderate [facility] Creatinine Clearance (Chem N/A [facility] Platelet Estimate Normal Normal [facility] Platelet Morphology Comment N/A [facility] Poikilocytosis Moderate [facility] Schistocytes Slight [facility] Platelet mean volume Auto (B ld) [Entitic vol]Ordered By: Kiko Corbett on 01-11-2022 Platelet mean volume (Bld) [Entitic vol] 10.4 fL 6.6-10.1 [facility] Platelets Auto (Bld) [#/Vol] Ordered By: Kkio Corbett on 01-11-2022 Platelets (Bld) [#/Vol] 225 10*3/uL 150-450 [facility] RBC Auto (Bld) [#/Vol]Ordere d By: Kiko Corbett on 01-11-2022 RBC (Bld) [#/Vol] 3.60 10*6/uL 3.90-5.60 [facility] RBC morphologyOrdered By: Duane Corbett on 01-11-2022 RBC morphology finding Nom (Bld) N/A [facility] Segmented neutrophils/100 WB C Manual cnt (Bld)Ordered By: Kiko Corbett on 01-11-2022 Segmented neutrophils/100 WBC (Bld) 46 % 50-70 [facility] Serum or plasma anion gap de terminationOrdered By: Kiko Corbett on 01-11-2022 Anion gap [Moles/Vol] 19.1 mmol/L 6.0-15.0 [facility] Serum or plasma calcium blaire urement (mass/volume)Ordered By: Kiko Corbett on 01-11-2022 Calcium [Mass/Vol] 8.8 mg/dL 8.2-10.2 [facility] Serum or plasma chloride melany surement (moles/volume)Ordered By: Kiko Corbett on 01-11-2022 Chloride [Moles/Vol] 102 mmol/L 95-114 [facility] Serum or plasma glucose blaire urement (mass/volume)Ordered By: Kiko Corbett on 01-11-2022 Glucose [Mass/Vol] 105 mg/dL 70-100 [facility] Comment on above: ADA recommended refe rence rangeRandom Glucose Reference Range is dependent on time and content of last meal. Glucose of more than 200 mg/dL in a nonstressed, ambulatory subject supports the diagnosis of Diabetes Mellitus. Serum or plasma potassium me asurement (moles/volume)Ordered By: Kiko Corbett on 01-11-2022 Potassium [Moles/Vol] 5.4 mmol/L 3.5-5.[address] [facility] Serum or plasma sodium measu rement (moles/volume)Ordered By: Kiko Corbett on 01-11-2022 Sodium [Moles/Vol] 139 mmol/L 136-146 [facility] Serum or plasma total carbon dioxide measurement (moles/volume)Ordered By: Kiko Corbett on 01-11-2022 CO2 [Moles/Vol] 23.3 mmol/L 22.0-30.0 [facility] Serum or plasma urea nitroge n measurement (mass/volume)Ordered By: Kiko Corbett on 01-11-2022 Urea nitrogen [Mass/Vol] 57 mg/dL 9-23 [facility] Target cellsOrdered By: Ni Corbett on 01-11-2022 Target cells LM Ql (Bld) Marked [facility] Albumin [Mass/volume] in Ser um or PlasmaOrdered By: Jose M Landry on 12-05-2021 Albumin [Mass/Vol] 2.5 g/dL 3.2-5.5 [facility] Basophils Auto (Bld) [#/Vol] Ordered By: Jose M Landry on 12-05-2021 Basophils (Bld) [#/Vol] 0.2 10*3/uL 0.0-0.2 [facility] Basophils/100 WBC Auto (Bld) Ordered By: Jose M Landry on 12-05-2021 Basophils/100 WBC (Bld) 1.3 % . [facility] Blood anisocytosis detection Ordered By: Jose M Landry on 12-05-2021 Anisocytosis Ql (Bld) Moderate [facility] Blood hemoglobin measurement (mass/volume)Ordered By: Jose M Landry on 12-05-2021 Hemoglobin (Bld) [Mass/Vol] 9.7 g/dL 13.0-17.0 [facility] Blood leukocytes automated c ount (number/volume)Ordered By: Jose M Landry on 12-05-2021 WBC (Bld) [#/Vol] 14.0 10*3/uL 4.1-10.5 [facility] CT biopsyOrdered By: Jose M Landry on 12-05-2021 CT biopsy 235 mg/dL 180-380 [facility] Transferrin [Mass/Vol] 235 mg/dL 180-380 [facility] Comprehensive Metabolic Pane fidel 12-05-2021 Albumin [Mass/Vol] 2.5 g/dL Low 3.2-5.5 [facility] Comment on above: Performed By: #### C MP ####[place] [place] [address] [facility] Albumin/Globulin [Mass ratio] 0.4 {ratio} Normal [facility] Comment on above: Performed By: #### C MP ####[address] [address] [facility] ALP [Catalytic activity/Vol] 184 U/L High 32-92 [facility] Comment on above: Performed By: #### C MP ####[address] [address] [facility] ALT [Catalytic activity/Vol] 17 U/L Normal 10-60 [facility] Comment on above: Performed By: #### C MP ####[address] [address] [facility] Anion gap [Moles/Vol] 16.4 mmol/L High 6.0-15.0 [facility] Comment on above: Performed By: #### C MP ####[address] [address] [facility] AST [Catalytic activity/Vol] 30 U/L Normal 10-42 [facility] Comment on above: Performed By: #### C MP ####[address] [address] [facility] Bilirubin [Mass/Vol] 0.6 mg/dL Normal 0.3-1.2 [facility] Comment on above: Performed By: #### C MP ####[address] [address] [facility] Calcium [Mass/Vol] 8.5 mg/dL Normal 8.2-10.2 [facility] Comment on above: Performed By: #### C MP ####[place] [id number] [facility] Chloride [Moles/Vol] 109 mmol/L Normal 95-114 [facility] Comment on above: Performed By: #### C MP ####[place] [id number] [facility] CO2 [Moles/Vol] 19.0 mmol/L Low 22.0-30.0 [facility] Comment on above: Performed By: #### C MP ####[place] [id number] [facility] Creatinine [Mass/Vol] 3.38 mg/dL High 0.64-1.[address] [facility] Comment on above: Performed By: #### C MP ####[address] Creatinine Clr Calc Pharmacy 26.43 [facility] Comment on above: Result Comment: PERF ORMED BY:[address] [place], [place] [id number] MEDICAL DIRECTORCHRISTO PINO M.D. Performed By: #### C MP ####[place] [id number] [facility] Estimated GFR ( Cristo 22 [facility] Comment on above: Result Comment: GFR estimated reference range: According to KDOQI guidelines, <60 ml/min/1.73m2 is sufficient to diagnose a patient with chronic kidney disease. Performed By: #### C MP ####[place] [id number] [facility] Estimated GFR (Non- Am 18 [facility] Comment on above: Performed By: #### C MP ####[place] [id number] [facility] Globulin (S) [Mass/Vol] 7.0 g/dL Normal [facility] Comment on above: Performed By: #### C MP ####[place] [id number] [facility] Glucose [Mass/Vol] 101 mg/dL High 70-100 [facility] Comment on above: Result Comment: [place] Glucose Reference Range is dependent on time and content of last meal. Glucose of more than 200 mg/dL in a nonstressed, ambulatory subject supports the diagnosis of Diabetes Mellitus. ADA recommended reference range Performed By: #### C MP ####[facility] Potassium [Moles/Vol] 5.4 mmol/L High 3.5-5.[address] [facility] Comment on above: Performed By: #### C MP ####[place] [address] Protein [Mass/Vol] 9.5 g/dL High 6.1-7.9 [facility] Comment on above: Performed By: #### C MP ####[place] [address] Sodium [Moles/Vol] 139 mmol/L Normal 136-146 [facility] Comment on above: Performed By: #### C MP ####[place] [address] Urea nitrogen [Mass/Vol] 37 mg/dL High 9-23 [facility] Comment on above: Performed By: #### C MP ####[address] Creatinine and Glomerular fi ltration rate.predicted panel (S/P/Bld)Ordered By: Jose M Landry on 12-05-2021 Creatinine [Mass/Vol] 3.38 mg/dL 0.64-1.[address] [facility] Eosinophils Auto (Bld) [#/Vo l]Ordered By: Jose M Landry on 12-05-2021 Eosinophils (Bld) [#/Vol] 0.5 10*3/uL 0.0-0.45 [facility] Eosinophils/100 WBC Auto (Bl d)Ordered By: Jose M Landry on 12-05-2021 Eosinophils/100 WBC (Bld) 3.4 % . [facility] Erythrocyte distribution wid th Auto (RBC) [Ratio]Ordered By: Jose M Landry on 12-05-2021 Erythrocyte distribution width (RBC) [Ratio] 17.7 % 12.0-14.8 [facility] Estimated glomerular filtrat ion rate (GFR) non- AmericanOrdered By: Jose M Landry on 12-05-2021 GFR/1.73 sq M.predicted among non-blacks MDRD (S/P/Bld) [Vol rate/Area] 18 mL/Min [facility] Ferritinon 12-05-2021 Ferritin [Mass/Vol] 52.5 ng/mL Normal 23.9-336.2 [facility] Comment on above: Performed By: #### F E and TIBC, OKSANA, SCAN CBC, [id number] ####[facility] [address]#### METH ####[facility] , Ferritin [Mass/volume] in Se rum or PlasmaOrdered By: Jose M Landry on 12-05-2021 Ferritin [Mass/Vol] 52.5 ng/mL 23.9-336.2 [facility] Folate [Mass/volume] in Seru m or PlasmaOrdered By: Jose M Landry on 12-05-2021 Folate [Mass/Vol] ng/mL >5.9 [facility] Comment on above: Folate reference ran ge: >5.9 ng/ml The WHO technical consultation on folate and vitamin b12 deficiencies has determined that folate concentrations less than 4 ng/ml are considered deficient. Folate reference ran ge: >5.9 ng/mlThe WHO technical consultation on folate and vitamin [id number] has determined that folate concentrations lessthan 4 ng/ml are considered deficient. Globulin Calc (S) [Mass/Vol] Ordered By: Jose M Landry on 12-05-2021 Globulin (S) [Mass/Vol] 7.0 g/dL [facility] Hematocrit Auto (Bld) [Volum e fraction]Ordered By: Jose M Landry on 12-05-2021 Hematocrit (Bld) [Volume fraction] 31.2 % 38.8-50.0 [facility] Comment on above: Delta: 21.4 on 12/04 Hypochromia detectionOrdered By: Jose M Landry on 12-05-2021 Hypochromia Ql (Bld) Slight [facility] Iron [Mass/volume] in Serum or PlasmaOrdered By: Jose M Landry on 12-05-2021 Iron [Mass/Vol] 93 ug/dL 40-160 [facility] Iron and TIBC Profileon 11-07 % Iron Saturation 28.0 % Normal 20-50 [facility] Comment on above: Performed By: #### F E and TIBC, OKSANA, SCAN CBC, [id number] ####[place] [address] [place]#### METH ####[facility] , Iron [Mass/Vol] 93 ug/dL Normal 40-160 [facility] Comment on above: Performed By: #### F E and TIBC, OKSANA, SCAN CBC, [id number] ####[place] [address] [place]#### METH ####[facility] , Total Iron Binding Capacity 329 ug/dL Normal 255-450 [facility] Comment on above: Performed By: #### F E and TIBC, OKSANA, SCAN CBC, [id number] ####[facility] [place] [address] [place]#### METH ####[facility] , Transferrin [Mass/Vol] 235 mg/dL Normal 180-380 [facility] Comment on above: Performed By: #### F E and TIBC, OKSANA, SCAN CBC, [id number] ####[place] [address] [place]#### METH ####[facility] , Iron binding capacity [Mass/ volume] in Serum or PlasmaOrdered By: Jose M Landry on 12-05-2021 Iron binding capacity [Mass/Vol] 329 ug/dL 255-450 [facility] Iron saturation [Mass Fracti on] in Serum or PlasmaOrdered By: Jose M Landry on 12-05-2021 Iron saturation [Mass fraction] 28.0 % 20-50 [facility] - Chemistry and C hemistry - challengeOrdered By: Jose M Landry on 12-05-2021 Cobalamin (Vitamin B12) [Mass/Vol] 6328 pg/mL 180-914 [facility] - Hematology and Cell countsOrdered By: Jose M Landry on 12-05-2021 Nucleated RBC/100 WBC (Bld) [Ratio] 0.5 % 0-0.5 [facility] LeukoReduced RBCon 2 LeukoReduced RBC TRANSFUSED 12/05/21 0245 Normal [facility] Lymphocytes Auto (Bld) [#/Vo l]Ordered By: Jose M Landry on 12-05-2021 Lymphocytes (Bld) [#/Vol] 6.2 10*3/uL 1.00-4.8 [facility] Lymphocytes/100 WBC Auto (Bl d)Ordered By: Jose M Landry on 12-05-2021 Lymphocytes/100 WBC (Bld) 44.4 % . [facility] MCH Auto (RBC) [Entitic mass ]Ordered By: Jose M Landry on 12-05-2021 MCH (RBC) [Entitic mass] 27.3 pg 27.5-35.2 [facility] MCHC Auto (RBC) [Mass/Vol]Or dered By: Jose M Landry on 12-05-2021 MCHC (RBC) [Mass/Vol] 31.2 g/dL 32.5-35.[address] [facility] MCV Auto (RBC) [Entitic vol] Ordered By: Jose M Landry on 12-05-2021 MCV (RBC) [Entitic vol] 87.4 fL 83.5-101 [facility] Macrocytes detectionOrdered By: Jose M Landry on 12-05-2021 Macrocytes Ql (Bld) Slight [facility] Methylmalonic Acidon 022 Methylmalonic Acid 388 High 0-378 [facility] Comment on above: Result Comment: This test was developed and its performance characteristics determined by [facility]. It has not been cleared or approved by the Food and Drug Administration. Performed at: [facility] [address] [place], [place] [id number] Refuse Laborer: Fabienne Harmon MD, Phone: [phone] BY:[facility] [place], [place] [phone] MEDICAL DIRECTORCHRISTO PINO M.D. Performed By: #### F E and TIBC, OKSANA, SCAN CBC, [id number] ####[facility] [address] [place] [address] [facility]#### METH ####[facility] , Monocytes Auto (Bld) [#/Vol] Ordered By: Jose M Landry on 12-05-2021 Monocytes (Bld) [#/Vol] 0.8 10*3/uL 0.0-0.8 [facility] Monocytes/100 WBC Auto (Bld) Ordered By: Jose M Landry on 12-05-2021 Monocytes/100 WBC (Bld) 5.5 % . [facility] Neutrophils Auto (Bld) [#/Vo l]Ordered By: Jose M Landry on 12-05-2021 Neutrophils (Bld) [#/Vol] 6.3 10*3/uL 1.8-7.7 [facility] Neutrophils/100 WBC Auto (Bl d)Ordered By: Jose M Landry on 12-05-2021 Neutrophils/100 WBC (Bld) 45.4 % . [facility] No Panel InformationOrdered By: Jose M Landry on 12-05-2021 Estimated GFR () 22 mL/Min [facility] Comment on above: GFR estimated refere nce range: According to KDOQI guidelines, <60 ml/min/1.73m2 is sufficient to diagnose a patient with chronic kidney disease. Microcytosis Slight [facility] Creatinine Clearance (Chem 26.43 [facility] Platelet Estimate Normal Normal [facility] Platelet Morphology Comment Normal Normal [facility] 14.0 10*3/uL 4.5-11.0 [facility] 0.5 % 0-0.5 [facility] Slight [facility] Normal Normal [facility] 22 mL/Min [facility] 6328 pg/mL 180-914 [facility] 26.43 [facility] Platelet mean volume Auto (B ld) [Entitic vol]Ordered By: Jose M Landry on 12-05-2021 Platelet mean volume (Bld) [Entitic vol] 10.8 fL 6.6-10.1 [facility] Platelets Auto (Bld) [#/Vol] Ordered By: Jose M Landry on 12-05-2021 Platelets (Bld) [#/Vol] 379 10*3/uL 150-450 [facility] Protein [Mass/volume] in Ser um or PlasmaOrdered By: Jose M Landry on 12-05-2021 Protein [Mass/Vol] 9.5 g/dL 6.1-7.9 [facility] Comment on above: Delta: 7.9 on RBC Auto (Bld) [#/Vol]Ordere d By: Jose M Landry on 12-05-2021 RBC (Bld) [#/Vol] 3.57 10*6/uL 3.90-5.60 [facility] RBC morphologyOrdered By: Shanti Landry on 12-05-2021 RBC morphology finding Nom (Bld) N/A [facility] Scan and CBCon 12-05-2021 Anisocytosis Ql (Bld) Moderate Normal Fir [facility] Comment on above: Performed By: #### F E and TIBC, OKSANA, SCAN CBC, [id number] ####[facility] [address] [place] [address] [place]#### METH ####[facility] , Basophils (Bld) [#/Vol] 0.2 10*3/uL Normal 0.0-0.2 [facility] Comment on above: Performed By: #### F E and TIBC, OKSANA, SCAN CBC, [id number] ####[facility] [address] [place] [address] [place]#### METH ####[facility] , Basophils/100 WBC (Bld) 1.3 % Normal . [facility] Comment on above: Performed By: #### F E and TIBC, OKSANA, SCAN CBC, [id number] ####[address]#### METH ####[facility] , Eosinophils (Bld) [#/Vol] 0.5 10*3/uL High 0.0-0.45 [facility] Comment on above: Performed By: #### F E and TIBC, OKSANA, SCAN CBC, [id number] ####[address]#### METH ####[facility] , Eosinophils/100 WBC (Bld) 3.4 % Normal . [facility] Comment on above: Performed By: #### F E and TIBC, OKSANA, SCAN CBC, [id number] ####[address]#### METH ####[facility] , Erythrocyte distribution width (RBC) [Ratio] 17.7 % High 12.0-14.8 [facility] Comment on above: Performed By: #### F E and TIBC, OKSANA, SCAN CBC, [id number] ####[address]#### METH ####[facility] , Hematocrit (Bld) [Volume fraction] 31.2 % Significant change down 38.8-50.0 [facility] Comment on above: Performed By: #### F E and TIBC, OKSANA, SCAN CBC, [id number] ####[place] [address] [place]#### METH ####[facility] , Hemoglobin (Bld) [Mass/Vol] 9.7 g/dL Low 13.0-17.0 [facility] Comment on above: Performed By: #### F E and TIBC, OKSANA, SCAN CBC, [id number] ####[address]#### METH ####[facility] , Hypochromasia Slight Normal [facility] Comment on above: Performed By: #### F E and TIBC, OKSANA, SCAN CBC, [id number] ####[address]#### METH ####[facility] , Lymphocytes (Bld) [#/Vol] 6.2 10*3/uL High 1.00-4.8 [facility] Comment on above: Performed By: #### F E and TIBC, OKSANA, SCAN CBC, [id number] ####[address]#### METH ####[facility] , Lymphocytes/100 WBC (Bld) 44.4 % Normal . [facility] Comment on above: Performed By: #### F E and TIBC, OKSANA, SCAN CBC, [id number] ####[place] [address] [place]#### METH ####[facility] , Macrocytosis Slight Normal [facility] Comment on above: Performed By: #### F E and TIBC, OKSANA, SCAN CBC, [id number] ####[place] [address] [place]#### METH ####[facility] , MCH (RBC) [Entitic mass] 27.3 pg Low 27.5-35.2 [facility] Comment on above: Performed By: #### F E and TIBC, OKSANA, SCAN CBC, [id number] ####[place] [address] [place]#### METH ####[facility] , MCV (RBC) [Entitic vol] 87.4 fL Normal 83.5-101 [facility] Comment on above: Performed By: #### F E and TIBC, OKSANA, SCAN CBC, [id number] ####[address]#### METH ####[facility] , Mean Corpuscular HGB Conc 31.2 g/dL Low 32.5-35.6 [facility] Comment on above: Performed By: #### F E and TIBC, OKSANA, SCAN CBC, [id number] ####[address]#### METH ####[facility] , Microcytosis Slight Normal [facility] Comment on above: Performed By: #### F E and TIBC, OKSANA, SCAN CBC, [id number] ####[address]#### METH ####[facility] , Monocytes (Bld) [#/Vol] 0.8 10*3/uL Normal 0.0-0.8 [facility] Comment on above: Performed By: #### F E and TIBC, OKSANA, SCAN CBC, [id number] ####[address]#### METH ####[facility] , Monocytes/100 WBC (Bld) 5.5 % Normal . [facility] Comment on above: Performed By: #### F E and TIBC, OKSANA, SCAN CBC, [id number] ####[place] [address] [place]#### METH ####[facility] , Neutrophils (Bld) [#/Vol] 6.3 10*3/uL Normal 1.8-7.7 [facility] Comment on above: Performed By: #### F E and TIBC, OKSANA, SCAN CBC, [id number] ####[address]#### METH ####[facility] , Neutrophils/100 WBC (Bld) 45.4 % Normal . [facility] Comment on above: Performed By: #### F E and TIBC, OKSANA, SCAN CBC, [id number] ####[place] [address] [place]#### METH ####[facility] , Nucleated RBC/100 WBC (Bld) [Ratio] 0.5 % Normal 0-0.5 [facility] Comment on above: Performed By: #### F E and TIBC, OKSANA, SCAN CBC, [id number] ####[address]#### METH ####[facility] , Platelet Estimate Normal Normal Normal [facility] Comment on above: Performed By: #### F E and TIBC, OKSANA, SCAN CBC, [id number] ####[address]#### METH ####[facility] , Platelet mean volume (Bld) [Entitic vol] 10.8 fL High 6.6-10.1 [facility] Comment on above: Performed By: #### F E and TIBC, OKSANA, SCAN CBC, [id number] ####[place] [address] [place]#### METH ####[facility] , Platelet Morphology Normal Normal Normal [facility] Comment on above: Result Comment: PERF ORMED BY:[address] [place], [place] [phone] MEDICAL MOOSE PINO M.D. Performed By: #### F E and TIBC, OKSANA, SCAN CBC, [id number] ####[address]#### METH ####[facility] , Platelets (Bld) [#/Vol] 379 10*3/uL Normal 150-450 [facility] Comment on above: Performed By: #### F E and TIBC, OKSANA, SCAN CBC, [id number] ####[place] [address] [place]#### METH ####[facility] , RBC (Bld) [#/Vol] 3.57 10*6/uL Low 3.90-5.60 [facility] Comment on above: Performed By: #### F E and TIBC, OKSANA, SCAN CBC, [id number] ####[address]#### METH ####[facility] , Target Cells Slight Normal [facility] Comment on above: Performed By: #### F E and TIBC, OKSANA, SCAN CBC, [id number] ####[place] [address] [place]#### METH ####[facility] , WBC (Bld) [#/Vol] 14.0 10*3/uL High 4.5-11.0 [facility] Comment on above: Performed By: #### F E and TIBC, OKSANA, SCAN CBC, [id number] ####[place] [address] [place]#### METH ####[facility] , Serum or plasma alanine coy otransferase measurement without P-5'-P (enzymatic activiOrdered By: Jose M Landry on 12-05-2021 ALT No additional P-5'-P [Catalytic activity/Vol] 17 U/L 10-60 [facility] Serum or plasma albumin/glob ulin mass ratioOrdered By: Jose M Landry on 12-05-2021 Albumin/Globulin [Mass ratio] 0.4 {ratio} [facility] Serum or plasma alkaline perico sphatase measurement (enzymatic activity/volume)Ordered By: Jose M Landry on 12-05-2021 ALP [Catalytic activity/Vol] 184 U/L 32-92 [facility] Serum or plasma anion gap de terminationOrdered By: Jose M Landry on 12-05-2021 Anion gap [Moles/Vol] 16.4 mmol/L 6.0-15.0 [facility] Serum or plasma aspartate am inotransferase measurement (enzymatic activity/volume)Ordered By: Jose M Landry on 12-05-2021 AST [Catalytic activity/Vol] 30 U/L 10-42 [facility] Serum or plasma calcium blaire urement (mass/volume)Ordered By: Jose M Landry on 12-05-2021 Calcium [Mass/Vol] 8.5 mg/dL 8.2-10.2 [facility] Serum or plasma chloride melany surement (moles/volume)Ordered By: Jose M Landry on 12-05-2021 Chloride [Moles/Vol] 109 mmol/L 95-114 [facility] Serum or plasma creatinine m easurement with calculation of estimated glomerular filtrOrdered By: Jose M Landry on 12-05-2021 Creatinine and Glomerular filtration rate.predicted panel (S/P/Bld) 3.38 mg/dL 0.64-1.27 [facility] Serum or plasma glucose blaire urement (mass/volume)Ordered By: Jose M Landry on 12-05-2021 Glucose [Mass/Vol] 101 mg/dL 70-100 [facility] Comment on above: ADA recommended refe rence range Random Glucose Reference Range is dependent on time and content of last meal. Glucose of more than 200 mg/dL in a nonstressed, ambulatory subject supports the diagnosis of Diabetes Mellitus. ADA recommended refe rence rangeRandom Glucose Reference Range is dependent on time and content of last meal. Glucose of more than 200 mg/dL in a nonstressed, ambulatory subject supports the diagnosis of Diabetes Mellitus. Serum or plasma methylmalona te measurement (moles/volume)Ordered By: Jose M Landry on 12-05-2021 Methylmalonate [Moles/Vol] 388 nmol/L 0-378 [facility] Comment on above: This test was develo ped and its performance characteristicsdetermined by [facility]. It has not been cleared orapproved by the Food and Drug Administration.Performed at: [facility] [address] [id number] Director: Fabienne Harmon MD, Phone: [phone] Serum or plasma potassium me asurement (moles/volume)Ordered By: Jose M Landry on 12-05-2021 Potassium [Moles/Vol] 5.4 mmol/L 3.5-5.[address] [facility] Serum or plasma sodium measu rement (moles/volume)Ordered By: Jose M Landry on 12-05-2021 Sodium [Moles/Vol] 139 mmol/L 136-146 [facility] Serum or plasma total biliru bin measurement (mass/volume)Ordered By: Jose M Landry on 12-05-2021 Bilirubin [Mass/Vol] 0.6 mg/dL 0.3-1.2 [facility] Serum or plasma total carbon dioxide measurement (moles/volume)Ordered By: Jose M Landry on 12-05-2021 CO2 [Moles/Vol] 19.0 mmol/L 22.0-30.0 [facility] Serum or plasma urea nitroge n measurement (mass/volume)Ordered By: Jose M Landry on 12-05-2021 Urea nitrogen [Mass/Vol] 37 mg/dL 9-23 [facility] Target cellsOrdered By: Vivek Landry on 12-05-2021 Target cells LM Ql (Bld) Slight [facility] Type and Screenon 12-05-2021 ABO and Rh group Nom (Bld) Blood group O Rh(D) positive Normal [facility] Comment on above: Order Comment: Numbe r of units to transfuse now? 2 US renal BIon 12-05-2021 US renal BI Normal [facility] Vit. B12/Folate Profileon Cobalamin (Vitamin B12) [Mass/Vol] 6328 pg/mL High 180-914 [facility] Comment on above: Performed By: #### F E and TIBC, OKSANA, SCAN CBC, [id number] ####[facility] [place] [address] [place]#### METH ####[facility] , Folate > 22.3 Normal >5.9 [facility] Comment on above: Result Comment: Yessenia te reference range: >5.9 ng/ml The WHO technical consultation on folate and vitamin b12 deficiencies has determined that folate concentrations less than 4 ng/ml are considered deficient.PERFORMED BY:[facility], [place] [phone] MEDICAL DIRECTORCHRISTO PINO M.D. Performed By: #### F E and TIBC, OKSANA, SCAN CBC, [id number] ####[facility] [place] [id number] [facility]#### METH ####[facility] , Activated partial thrombopla stin time (aPTT) in platelet poor plasma by coagulation aOrdered By: Ramakrishna Sandoval on 12-04-2021 aPTT Coag (PPP) [Time] 34.5 s 25.1-36.5 [facility] Albumin [Mass/volume] in Ser um or PlasmaOrdered By: Ramakrishna Sandoval on 12-04-2021 Albumin [Mass/Vol] 2.1 g/dL 3.2-5.5 [facility] Basophils Auto (Bld) [#/Vol] Ordered By: Ramakrishna Sandoval on 12-04-2021 Basophils (Bld) [#/Vol] 0.1 10*3/uL 0.0-0.2 [facility] Basophils/100 WBC Auto (Bld) Ordered By: Ramakrishna Sandoval on 12-04-2021 Basophils/100 WBC (Bld) 0.6 % . [facility] Blood anisocytosis detection Ordered By: Ramakrishna Sandoval on 12-04-2021 Anisocytosis Ql (Bld) Moderate [facility] Blood hemoglobin measurement (mass/volume)Ordered By: Ramakrishna Sandoval on 12-04-2021 Hemoglobin (Bld) [Mass/Vol] 6.6 g/dL 13.0-17.0 [facility] Blood leukocytes automated c ount (number/volume)Ordered By: Ramakrishna Sandoval on 12-04-2021 WBC (Bld) [#/Vol] 12.2 10*3/uL 4.5-11.0 [facility] Blood polychromasia detectio n by light microscopyOrdered By: Ramakrishna Sandoval on 12-04-2021 Polychromasia LM Ql (Bld) Moderate [facility] Comprehensive Metabolic Pane fidel 12-04-2021 Albumin [Mass/Vol] 2.1 g/dL Low 3.2-5.5 [facility] Comment on above: Performed By: #### P TT, PT, SCAN CBC, CMP ####[place] [id number] [address] Albumin/Globulin [Mass ratio] 0.4 {ratio} Normal [facility] Comment on above: Performed By: #### P TT, PT, SCAN CBC, CMP ####[address] ALP [Catalytic activity/Vol] 144 U/L High 32-92 [facility] Comment on above: Performed By: #### P TT, PT, SCAN CBC, CMP ####[address] ALT [Catalytic activity/Vol] 17 U/L Normal 10-60 [facility] Comment on above: Performed By: #### P TT, PT, SCAN CBC, CMP ####[place] [id number] [facility] Anion gap [Moles/Vol] 13.1 mmol/L Normal 6.0-15.0 [facility] Comment on above: Performed By: #### P TT, PT, SCAN CBC, CMP ####[place] [id number] [facility] AST [Catalytic activity/Vol] 29 U/L Normal 10-42 [facility] Comment on above: Performed By: #### P TT, PT, SCAN CBC, CMP ####[address] [address] [facility] Bilirubin [Mass/Vol] 0.4 mg/dL Normal 0.3-1.2 [facility] Comment on above: Performed By: #### P TT, PT, SCAN CBC, CMP ####[address] [address] [facility] Calcium [Mass/Vol] 7.9 mg/dL Low 8.2-10.2 [facility] Comment on above: Performed By: #### P TT, PT, SCAN CBC, CMP ####[address] [address] [facility] Chloride [Moles/Vol] 108 mmol/L Normal 95-114 [facility] Comment on above: Performed By: #### P TT, PT, SCAN CBC, CMP ####[address] [address] [facility] CO2 [Moles/Vol] 19.2 mmol/L Low 22.0-30.0 [facility] Comment on above: Performed By: #### P TT, PT, SCAN CBC, CMP ####[address] [address] [facility] Creatinine [Mass/Vol] 3.40 mg/dL High 0.64-1.[address] [facility] Comment on above: Performed By: #### P TT, PT, SCAN CBC, CMP ####[address] [address] [facility] Creatinine Clr Calc Pharmacy 26.43 [facility] Comment on above: Result Comment: PERF ORMED BY:[address] [place], [place] [phone] MEDICAL DIRECTORCHRISTO PINO M.D. Performed By: #### P TT, PT, SCAN CBC, CMP ####[address] [address] [facility] Estimated GFR ( Cristo 22 Normal [facility] Comment on above: Result Comment: GFR estimated reference range: According to KDOQI guidelines, <60 ml/min/1.73m2 is sufficient to diagnose a patient with chronic kidney disease. Performed By: #### P TT, PT, SCAN CBC, CMP ####[facility] [place] [address] [facility] Estimated GFR (Non- Am 18 Normal [facility] Comment on above: Performed By: #### P TT, PT, SCAN CBC, CMP ####[facility] [place] [address] [facility] Globulin (S) [Mass/Vol] 5.8 g/dL Normal [facility] Comment on above: Performed By: #### P TT, PT, SCAN CBC, CMP ####[address] [address] [facility] Glucose [Mass/Vol] 115 mg/dL High 70-100 [facility] Comment on above: Result Comment: [place] Glucose Reference Range is dependent on time and content of last meal. Glucose of more than 200 mg/dL in a nonstressed, ambulatory subject supports the diagnosis of Diabetes Mellitus. ADA recommended reference range Performed By: #### P TT, PT, SCAN CBC, CMP ####[address] [address] [facility] Potassium [Moles/Vol] 4.3 mmol/L Normal 3.5-5.[address] [facility] Comment on above: Performed By: #### P TT, PT, SCAN CBC, CMP ####[address] [address] [facility] Protein [Mass/Vol] 7.9 g/dL Normal 6.1-7.9 [facility] Comment on above: Performed By: #### P TT, PT, SCAN CBC, CMP ####[address] [address] [facility] Sodium [Moles/Vol] 136 mmol/L Normal 136-146 [facility] Comment on above: Performed By: #### P TT, PT, SCAN CBC, CMP ####[facility] [place] [address] [facility] Urea nitrogen [Mass/Vol] 38 mg/dL High 9-23 [facility] Comment on above: Performed By: #### P TT, PT, SCAN CBC, CMP ####[facility] [id number] Creatinine and Glomerular fi ltration rate.predicted panel (S/P/Bld)Ordered By: Ramakrishna Sandoval on 12-04-2021 Creatinine [Mass/Vol] 3.40 mg/dL 0.64-1.[address] [facility] Eosinophils Auto (Bld) [#/Vo l]Ordered By: Ramakrishna Sandoval on 12-04-2021 Eosinophils (Bld) [#/Vol] 0.6 10*3/uL 0.0-0.45 [facility] Eosinophils/100 WBC Auto (Bl d)Ordered By: Ramakrishna Sandoval on 12-04-2021 Eosinophils/100 WBC (Bld) 5.1 % . [facility] Erythrocyte distribution wid th Auto (RBC) [Ratio]Ordered By: Ramakrishna Sandoval on 12-04-2021 Erythrocyte distribution width (RBC) [Ratio] 18.6 % 12.0-14.8 [facility] Estimated glomerular filtrat ion rate (GFR) non- AmericanOrdered By: Ramakrishna Sandoval on 12-04-2021 GFR/1.73 sq M.predicted among non-blacks MDRD (S/P/Bld) [Vol rate/Area] 18 mL/Min [facility] Globulin Calc (S) [Mass/Vol] Ordered By: Ramakrishna Sandoval on 12-04-2021 Globulin (S) [Mass/Vol] 5.8 g/dL [facility] Hematocrit Auto (Bld) [Volum e fraction]Ordered By: Ramakrishna Sandoval on 12-04-2021 Hematocrit (Bld) [Volume fraction] 21.4 % 38.8-50.0 [facility] Laboratory - CoagulationOrde red By: Ramakrishna Sandoval on 12-04-2021 PT Coag (PPP) [Time] 13.4 s 9.0-12.9 [facility] Laboratory - Hematology and Cell countsOrdered By: Ramakrishna Sandoval on 12-04-2021 Nucleated RBC/100 WBC (Bld) [Ratio] 0.3 % 0-0.5 [facility] Lymphocytes Auto (Bld) [#/Vo l]Ordered By: Ramakrishna Sandoval on 12-04-2021 Lymphocytes (Bld) [#/Vol] 4.7 10*3/uL 1.00-4.8 [facility] Lymphocytes/100 WBC Auto (Bl d)Ordered By: Ramakrishna Snadoval on 12-04-2021 Lymphocytes/100 WBC (Bld) 38.1 % . [facility] MCH Auto (RBC) [Entitic mass ]Ordered By: Ramakrishna Sandoval on 12-04-2021 MCH (RBC) [Entitic mass] 26.6 pg 27.5-35.2 [facility] MCHC Auto (RBC) [Mass/Vol]Or dered By: Ramakrishna Sandoval on 12-04-2021 MCHC (RBC) [Mass/Vol] 30.7 g/dL 32.5-35.[address] [facility] MCV Auto (RBC) [Entitic vol] Ordered By: Ramakrishna Sandoval on 12-04-2021 MCV (RBC) [Entitic vol] 86.5 fL 83.5-101 [facility] Monocytes Auto (Bld) [#/Vol] Ordered By: Ramakrishna Sandoval on 12-04-2021 Monocytes (Bld) [#/Vol] 1.4 10*3/uL 0.0-0.8 [facility] Monocytes/100 WBC Auto (Bld) Ordered By: Ramakrishna Sandoval on 12-04-2021 Monocytes/100 WBC (Bld) 11.2 % . [facility] Neutrophils Auto (Bld) [#/Vo l]Ordered By: Ramakrishna Sandoval on 12-04-2021 Neutrophils (Bld) [#/Vol] 5.5 10*3/uL 1.8-7.7 [facility] Neutrophils/100 WBC Auto (Bl d)Ordered By: Ramakrishna Sandoval on 12-04-2021 Neutrophils/100 WBC (Bld) 45.0 % . [facility] No Panel InformationOrdered By: Ramakrishna Sandoval on 12-04-2021 Estimated GFR () 22 mL/Min [facility] Comment on above: GFR estimated refere nce range: According to KDOQI guidelines, <60 ml/min/1.73m2 is sufficient to diagnose a patient with chronic kidney disease. Pharmacy Creatinine Clearance (Chem 26.43 [facility] Platelet Estimate Normal Normal [facility] Platelet Morphology Comment Normal Normal [facility] Poikilocytosis Moderate [facility] Schistocytes Rare [facility] Partial Thromboplastin Timeo n 12-04-2021 aPTT Coag (Bld) [Time] 34.5 s Normal 25.1-36.5 [facility] Comment on above: Result Comment: PERF ORMED BY:[facility] [place], [place] [phone] MEDICAL DIRECTORCHRISTO PINO M.D. Performed By: #### P TT, PT, SCAN CBC, CMP ####[facility] [place] [address] [facility] Platelet mean volume Auto (B ld) [Entitic vol]Ordered By: Ramakrishna Sandoval on 12-04-2021 Platelet mean volume (Bld) [Entitic vol] 10.1 fL 6.6-10.1 [facility] Platelet poor plasma interna tional normalized ratio (INR) by coagulation assay (relatOrdered By: Ramakrishna Sandoval on 12-04-2021 INR Coag (PPP) [Relative time] 1.2 {INR} [facility] Comment on above: INR Therapeutic Rang e A) Pre- and Peroperative OAT started two weeks before surgery. NOT HIP SURGERY: 1.5 - 2.5 HIP SURGERY: 2 - 3 B) Primary and secondary prevention of venous THROMBOSIS: 2 - 3 C) Active venous thrombosis, pulmonary embolism and prevention of recurrent venous thrombosis: 2 - 3 D) Prevention of arterial thromboembolism including patients with mechanical heart valves: 3 - 4.5 INR Therapeutic Rang e A) Pre- and Peroperative OAT started two weeks before surgery. NOT HIP SURGERY: 1.5 - 2.5 HIP SURGERY: 2 - 3B) Primary and secondary prevention of venous THROMBOSIS: 2 - 3C) Active venous thrombosis, pulmonary embolismand prevention of recurrent venous thrombosis: 2 - 3D) Prevention of arterial thromboembolismincluding patients with mechanical heart valves: 3 - 4.5 Platelets Auto (Bld) [#/Vol] Ordered By: Ramakrishna Sandoval on 12-04-2021 Platelets (Bld) [#/Vol] 337 10*3/uL 150-450 [facility] Protein [Mass/volume] in Ser um or PlasmaOrdered By: Ramakrishna Sandoval on 12-04-2021 Protein [Mass/Vol] 7.9 g/dL 6.1-7.9 [facility] Prothrombin Time INRon 12-04 INR Coag (PPP) [Relative time] 1.2 {INR} Normal [facility] Comment on above: Result Comment: INR Therapeutic Range A) Pre- and Peroperative OAT started two weeks before surgery. NOT HIP SURGERY: 1.5 - 2.5 HIP SURGERY: 2 - 3 B) Primary and secondary prevention of venous THROMBOSIS: 2 - 3 C) Active venous thrombosis, pulmonary embolism and prevention of recurrent venous thrombosis: 2 - 3 D) Prevention of arterial thromboembolism including patients with mechanical heart valves: 3 - 4.5 Performed By: #### P TT, PT, SCAN CBC, CMP ####[address] PT Coag (PPP) [Time] 13.4 s High 9.0-12.9 [facility] Comment on above: Performed By: #### P TT, PT, SCAN CBC, CMP ####[address] RBC Auto (Bld) [#/Vol]Ordere d By: Ramakrishna Sandoval on 12-04-2021 RBC (Bld) [#/Vol] 2.48 10*6/uL 3.90-5.60 [facility] RBC morphologyOrdered By: Hero Sandoval on 12-04-2021 RBC morphology finding Nom (Bld) N/A [facility] Scan and CBCon 12-04-2021 Anisocytosis Ql (Bld) Moderate Normal [facility] Comment on above: Performed By: #### P TT, PT, SCAN CBC, CMP ####[address] Basophils (Bld) [#/Vol] 0.1 10*3/uL Normal 0.0-0.2 [facility] Comment on above: Performed By: #### P TT, PT, SCAN CBC, CMP ####[address] Basophils/100 WBC (Bld) 0.6 % Normal . [facility] Comment on above: Performed By: #### P TT, PT, SCAN CBC, CMP ####[address] Eosinophils (Bld) [#/Vol] 0.6 10*3/uL High 0.0-0.45 [facility] Comment on above: Performed By: #### P TT, PT, SCAN CBC, CMP ####[address] Eosinophils/100 WBC (Bld) 5.1 % Normal . [facility] Comment on above: Performed By: #### P TT, PT, SCAN CBC, CMP ####[address] Erythrocyte distribution width (RBC) [Ratio] 18.6 % High 12.0-14.8 [facility] Comment on above: Performed By: #### P TT, PT, SCAN CBC, CMP ####[address] Hematocrit (Bld) [Volume fraction] 21.4 % Low 38.8-50.0 [facility] Comment on above: Performed By: #### P TT, PT, SCAN CBC, CMP ####[address] Hemoglobin (Bld) [Mass/Vol] 6.6 g/dL Low 13.0-17.0 [facility] Comment on above: Performed By: #### P TT, PT, SCAN CBC, CMP ####[address] Lymphocytes (Bld) [#/Vol] 4.7 10*3/uL Normal 1.00-4.8 [facility] Comment on above: Performed By: #### P TT, PT, SCAN CBC, CMP ####[address] Lymphocytes/100 WBC (Bld) 38.1 % Normal . [facility] Comment on above: Performed By: #### P TT, PT, SCAN CBC, CMP ####[address] MCH (RBC) [Entitic mass] 26.6 pg Low 27.5-35.2 [facility] Comment on above: Performed By: #### P TT, PT, SCAN CBC, CMP ####[address] MCV (RBC) [Entitic vol] 86.5 fL Normal 83.5-101 [facility] Comment on above: Performed By: #### P TT, PT, SCAN CBC, CMP ####[address] Mean Corpuscular HGB Conc 30.7 g/dL Low 32.5-35.6 [facility] Comment on above: Performed By: #### P TT, PT, SCAN CBC, CMP ####[address] Monocytes (Bld) [#/Vol] 1.4 10*3/uL High 0.0-0.8 [facility] Comment on above: Performed By: #### P TT, PT, SCAN CBC, CMP ####[address] Monocytes/100 WBC (Bld) 11.2 % Normal . [facility] Comment on above: Performed By: #### P TT, PT, SCAN CBC, CMP ####[address] Neutrophils (Bld) [#/Vol] 5.5 10*3/uL Normal 1.8-7.7 [facility] Comment on above: Performed By: #### P TT, PT, SCAN CBC, CMP ####[address] Neutrophils/100 WBC (Bld) 45.0 % Normal . [facility] Comment on above: Performed By: #### P TT, PT, SCAN CBC, CMP ####[place] [id number] [facility] Nucleated RBC/100 WBC (Bld) [Ratio] 0.3 % Normal 0-0.5 [facility] Comment on above: Performed By: #### P TT, PT, SCAN CBC, CMP ####[place] [id number] [facility] Platelet Estimate Normal Normal Normal [facility] Comment on above: Performed By: #### P TT, PT, SCAN CBC, CMP ####[place] [id number] [facility] Platelet mean volume (Bld) [Entitic vol] 10.1 fL Normal 6.6-10.1 [facility] Comment on above: Performed By: #### P TT, PT, SCAN CBC, CMP ####[address] Platelet Morphology Normal Normal Normal [facility] Comment on above: Result Comment: PERF ORMED BY:[address] [place], [place] [phone] MEDICAL MOOSE PINO M.D. Performed By: #### P TT, PT, SCAN CBC, CMP ####[place] [id number] [facility] Platelets (Bld) [#/Vol] 337 10*3/uL Normal 150-450 [facility] Comment on above: Performed By: #### P TT, PT, SCAN CBC, CMP ####[place] [id number] [facility] Poikilocytosis Moderate Normal [facility] Comment on above: Performed By: #### P TT, PT, SCAN CBC, CMP ####[place] [id number] [facility] Polychromasia Moderate Normal [facility] Comment on above: Performed By: #### P TT, PT, SCAN CBC, CMP ####[address] RBC (Bld) [#/Vol] 2.48 10*6/uL Low 3.90-5.60 [facility] Comment on above: Performed By: #### P TT, PT, SCAN CBC, CMP ####[facility] Schistocytes Rare Normal [facility] Comment on above: Performed By: #### P TT, PT, SCAN CBC, CMP ####[facility] Target Cells Slight Normal [facility] Comment on above: Performed By: #### P TT, PT, SCAN CBC, CMP ####[place] [id number] WBC (Bld) [#/Vol] 12.2 10*3/uL High 4.5-11.0 [facility] Comment on above: Performed By: #### P TT, PT, SCAN CBC, CMP ####[address] Serum or plasma alanine coy otransferase measurement without P-5'-P (enzymatic activiOrdered By: Ramakrishna Sandoval on 12-04-2021 ALT No additional P-5'-P [Catalytic activity/Vol] 17 U/L 1060 [facility] Serum or plasma albumin/glob ulin mass ratioOrdered By: Ramakrishna Sandoval on 12-04-2021 Albumin/Globulin [Mass ratio] 0.4 {ratio} [facility] Serum or plasma alkaline perico sphatase measurement (enzymatic activity/volume)Ordered By: Ramakrishna Sandoval on 12-04-2021 ALP [Catalytic activity/Vol] 144 U/L 32-92 [facility] Serum or plasma anion gap de terminationOrdered By: Ramakrishna Sandoval on 12-04-2021 Anion gap [Moles/Vol] 13.1 mmol/L 6.0-15.0 [facility] Serum or plasma aspartate am inotransferase measurement (enzymatic activity/volume)Ordered By: Ramakrishna Sandoval on 12-04-2021 AST [Catalytic activity/Vol] 29 U/L 10-42 [facility] Serum or plasma calcium blaire urement (mass/volume)Ordered By: Ramakrishna Sandoval on 12-04-2021 Calcium [Mass/Vol] 7.9 mg/dL 8.2-10.2 [facility] Serum or plasma chloride melany surement (moles/volume)Ordered By: Ramakrishna Sandoval on 12-04-2021 Chloride [Moles/Vol] 108 mmol/L 95-114 [facility] Serum or plasma glucose blaire urement (mass/volume)Ordered By: Ramakrishna Sandoval on 12-04-2021 Glucose [Mass/Vol] 115 mg/dL 70-100 [facility] Comment on above: ADA recommended refe rence range Random Glucose Reference Range is dependent on time and content of last meal. Glucose of more than 200 mg/dL in a nonstressed, ambulatory subject supports the diagnosis of Diabetes Mellitus. ADA recommended refe rence rangeRandom Glucose Reference Range is dependent on time and content of last meal. Glucose of more than 200 mg/dL in a nonstressed, ambulatory subject supports the diagnosis of Diabetes Mellitus. Serum or plasma potassium me asurement (moles/volume)Ordered By: Ramakrishna Sandoval on 12-04-2021 Potassium [Moles/Vol] 4.3 mmol/L 3.5-5.[address] [facility] Serum or plasma sodium measu rement (moles/volume)Ordered By: Ramakrishna Sandoval on 12-04-2021 Sodium [Moles/Vol] 136 mmol/L 136-146 [facility] Serum or plasma total biliru bin measurement (mass/volume)Ordered By: Ramakrishna Sandoval on 12-04-2021 Bilirubin [Mass/Vol] 0.4 mg/dL 0.3-1.2 [facility] Serum or plasma total carbon dioxide measurement (moles/volume)Ordered By: Ramakrishna Sandoval on 12-04-2021 CO2 [Moles/Vol] 19.2 mmol/L 22.0-30.0 [facility] Serum or plasma urea nitroge n measurement (mass/volume)Ordered By: Ramakrishna Sandoval on 12-04-2021 Urea nitrogen [Mass/Vol] 38 mg/dL - [facility] Target cellsOrdered By: Parth Sandoval on 12-04-2021 Target cells LM Ql (Bld) Slight [facility] Basic Metabolic Panelon 11-05 Calcium [Mass/Vol] 8.1 mg/dL Low 8.2-10.2 [facility] Comment on above: Performed By: #### S CAN CBC, BMP ####[place] [address] [place] [address] [facility] Chloride [Moles/Vol] 105 mmol/L Normal 95-114 [facility] Comment on above: Performed By: #### S CAN CBC, BMP ####[place] [address] [place] [id number] [facility] CO2 [Moles/Vol] 23.6 mmol/L Normal 22.0-30.0 [facility] Comment on above: Performed By: #### S CAN CBC, BMP ####[place] [address] [place] [id number] [facility] Creatinine [Mass/Vol] 3.41 mg/dL High 0.64-1.[address] [facility] Comment on above: Performed By: #### S CAN CBC, BMP ####[place] [phone] [facility] Creatinine Clr Calc Pharmacy 25.89 [facility] Comment on above: Result Comment: PERF ORMED BY:[address] [place], [place] [id number] MEDICAL DIRECTORCHRISTO PINO M.D. Performed By: #### S CAN CBC, BMP ####[address] [address] [facility] Estimated GFR ( Cristo 22 [facility] Comment on above: Result Comment: GFR estimated reference range: According to KDOQI guidelines, <60 ml/min/1.73m2 is sufficient to diagnose a patient with chronic kidney disease. Performed By: #### S CAN CBC, BMP ####[address] [address] [facility] Estimated GFR (Non- Am 18 [facility] Comment on above: Performed By: #### S CAN CBC, BMP ####[place] [id number] [facility] Glucose [Mass/Vol] 104 mg/dL High 70-100 [facility] Comment on above: Result Comment: [place] Glucose Reference Range is dependent on time and content of last meal. Glucose of more than 200 mg/dL in a nonstressed, ambulatory subject supports the diagnosis of Diabetes Mellitus. ADA recommended reference range Performed By: #### S CAN CBC, BMP ####[facility] [id number] [place] [id number] [facility] Potassium [Moles/Vol] 3.8 mmol/L Normal 3.5-5.[address] [facility] Comment on above: Performed By: #### S CAN CBC, BMP ####[facility] [id number] [place] [address] [facility] Sodium [Moles/Vol] 138 mmol/L Normal 136-146 [facility] Comment on above: Performed By: #### S CAN CBC, BMP ####[facility] [id number] [place] [address] [facility] Urea nitrogen [Mass/Vol] 45 mg/dL High 9-23 [facility] Comment on above: Performed By: #### S CAN CBC, BMP ####[facility] [id number] [place] [address] [facility] Basophils Auto (Bld) [#/Vol] Ordered By: Chris Mccarthy on 11-21-2021 Basophils (Bld) [#/Vol] 0.2 10*3/uL 0.0-0.2 [facility] Basophils/100 WBC Auto (Bld) Ordered By: Chris Mccarthy on 11-21-2021 Basophils/100 WBC (Bld) 1.2 % . [facility] Blood anisocytosis detection Ordered By: Chris Mccarthy on 11-21-2021 Anisocytosis Ql (Bld) Slight [facility] Blood hemoglobin measurement (mass/volume)Ordered By: Chris Mccarthy on 11-21-2021 Hemoglobin (Bld) [Mass/Vol] 8.3 g/dL 13.0-17.0 [facility] Blood leukocytes automated c ount (number/volume)Ordered By: Chris Mccarthy on 11-21-2021 WBC (Bld) [#/Vol] 15.6 10*3/uL 4.5-11.0 [facility] Creatinine and Glomerular fi ltration rate.predicted panel (S/P/Bld)Ordered By: Chris Mccarthy on 11-21-2021 Creatinine [Mass/Vol] 3.41 mg/dL 0.64-1.[address] [facility] Eosinophils Auto (Bld) [#/Vo l]Ordered By: Chris Mccarthy on 11-21-2021 Eosinophils (Bld) [#/Vol] 0.5 10*3/uL 0.0-0.45 [facility] Eosinophils/100 WBC Auto (Bl d)Ordered By: Chris Mccarthy on 11-21-2021 Eosinophils/100 WBC (Bld) 3.4 % . [facility] Erythrocyte distribution wid th Auto (RBC) [Ratio]Ordered By: Chris Mccarthy on 11-21-2021 Erythrocyte distribution width (RBC) [Ratio] 17.7 % 12.0-14.8 [facility] Estimated glomerular filtrat ion rate (GFR) non- AmericanOrdered By: Chris Mccarthy on 11-21-2021 GFR/1.73 sq M.predicted among non-blacks MDRD (S/P/Bld) [Vol rate/Area] 18 mL/Min [facility] Glucose Glucometer (BldC) [M ass/Vol]Ordered By: Landon Grullon on 11-21-2021 Glucose [Mass/Vol] 155 mg/dL [facility] Comment on above: Random Glucose Refer ence Range is dependent on time and content of last meal. Glucose of more than 200 mg/dL in a nonstressed, ambulatory subject supports the diagnosis of Diabetes Mellitus. Glucose Poct Glucometerson 0 11-21-2021 Glucose [Mass/Vol] 155 mg/dL Normal [facility] Comment on above: Result Comment: [place] om Glucose Reference Range is dependent on time and content of last meal. Glucose of more than 200 mg/dL in a nonstressed, ambulatory subject supports the diagnosis of Diabetes Mellitus.PERFORMED BY:[place] [address] [address] [place] [phone] MEDICAL DIRECTORCHRISTO PINO M.D. Performed By: #### G LULS ####Point of Care testing, Glucose [Mass/Vol] 160 mg/dL Normal [facility] Comment on above: Result Comment: [place] om Glucose Reference Range is dependent on time and content of last meal. Glucose of more than 200 mg/dL in a nonstressed, ambulatory subject supports the diagnosis of Diabetes Mellitus.PERFORMED BY:[place] [address] [address] [place] [phone] MEDICAL DIRECTORCHRISTO PINO M.D. Performed By: #### G LULS ####Point of Care testing, Commemt1 Glu2: Cleaned Meter Normal [facility] Comment on above: Result Comment: PERF ORMED BY:[place] [address] [address] [place], [place] [phone] MEDICAL DIRECTORCHRISTO PINO M.D. Performed By: #### G LULS ####Point of Care testing, Glucose [Mass/Vol] 110 mg/dL Normal [facility] Comment on above: Result Comment: [place] om Glucose Reference Range is dependent on time and content of last meal. Glucose of more than 200 mg/dL in a nonstressed, ambulatory subject supports the diagnosis of Diabetes Mellitus. Performed By: #### G LULS ####Point of Care testing, Hematocrit Auto (Bld) [Volum e fraction]Ordered By: Chris Mccarthy on 11-21-2021 Hematocrit (Bld) [Volume fraction] 25.9 % 38.8-50.0 [facility] Hypochromia detectionOrdered By: Chris Mccarthy on 11-21-2021 Hypochromia Ql (Bld) Slight [facility] Laboratory - Hematology and Cell countsOrdered By: Chris Mccarthy on 11-21-2021 Nucleated RBC/100 WBC (Bld) [Ratio] 0.1 % 0-0.5 [facility] Lymphocytes Auto (Bld) [#/Vo l]Ordered By: Chris Mccarthy on 11-21-2021 Lymphocytes (Bld) [#/Vol] 5.0 10*3/uL 1.00-4.8 [facility] Lymphocytes/100 WBC Auto (Bl d)Ordered By: Chris Mccarthy on 11-21-2021 Lymphocytes/100 WBC (Bld) 31.7 % . [facility] MCH Auto (RBC) [Entitic mass ]Ordered By: Chris Mccarthy on 11-21-2021 MCH (RBC) [Entitic mass] 27.0 pg 27.5-35.2 [facility] MCHC Auto (RBC) [Mass/Vol]Or dered By: Chris Mccarthy on 11-21-2021 MCHC (RBC) [Mass/Vol] 32.0 g/dL 32.5-35.6 [facility]ir [facility] MCV Auto (RBC) [Entitic vol] Ordered By: Chris Mccarthy on 11-21-2021 MCV (RBC) [Entitic vol] 84.4 fL 83.5-101 [facility] Monocytes Auto (Bld) [#/Vol] Ordered By: Chris Mccarthy on 11-21-2021 Monocytes (Bld) [#/Vol] 1.5 10*3/uL 0.0-0.8 [facility] Monocytes/100 WBC Auto (Bld) Ordered By: Chris Mccarthy on 11-21-2021 Monocytes/100 WBC (Bld) 9.6 % . [facility] Neutrophils Auto (Bld) [#/Vo l]Ordered By: Chris Mccarthy on 11-21-2021 Neutrophils (Bld) [#/Vol] 8.4 10*3/uL 1.8-7.7 [facility] Neutrophils/100 WBC Auto (Bl d)Ordered By: Chris Mccarthy on 11-21-2021 Neutrophils/100 WBC (Bld) 54.1 % . [facility] No Panel InformationOrdered By: Landon Grullon on 08-17-2022 Bedside Glucose Comment Glu2: cleaned meter [facility] No Panel InformationOrdered By: Chris Mccarthy on 11-21-2021 Estimated GFR () 22 mL/Min [facility] Comment on above: GFR estimated refere nce range: According to KDOQI guidelines, <60 ml/min/1.73m2 is sufficient to diagnose a patient with chronic kidney disease. Pharmacy Creatinine Clearance (Chem 25.89 [facility] Platelet Estimate Normal Normal [facility] Platelet Morphology Comment Normal Normal [facility] Schistocytes Slight [facility] Platelet mean volume Auto (B ld) [Entitic vol]Ordered By: Chris Mccarthy on 11-21-2021 Platelet mean volume (Bld) [Entitic vol] 10.6 fL 6.6-10.1 [facility] Platelets Auto (Bld) [#/Vol] Ordered By: Chris Mccarthy on 11-21-2021 Platelets (Bld) [#/Vol] 263 10*3/uL 150-450 [facility] RBC Auto (Bld) [#/Vol]Ordere d By: Chris Mccarthy on 11-21-2021 RBC (Bld) [#/Vol] 3.06 10*6/uL 3.90-5.60 [facility] RBC morphologyOrdered By: Liam Mccarthy on 11-21-2021 RBC morphology finding Nom (Bld) N/A [facility] Scan and CBCon 11-21-2021 Anisocytosis Ql (Bld) Slight Normal [facility]ir [facility] Comment on above: Performed By: #### S CAN CBC, BMP ####[facility] [id number] [place] [address] [facility] Basophils (Bld) [#/Vol] 0.2 10*3/uL Normal 0.0-0.2 [facility] Comment on above: Performed By: #### S CAN CBC, BMP ####[facility] [id number] [place] [id number] [facility] Basophils/100 WBC (Bld) 1.2 % Normal . [facility] Comment on above: Performed By: #### S CAN CBC, BMP ####[address] Eosinophils (Bld) [#/Vol] 0.5 10*3/uL High 0.0-0.45 [facility] Comment on above: Performed By: #### S CAN CBC, BMP ####[address] Eosinophils/100 WBC (Bld) 3.4 % Normal . [facility] Comment on above: Performed By: #### S CAN CBC, BMP ####[address] Erythrocyte distribution width (RBC) [Ratio] 17.7 % High 12.0-14.8 [facility] Comment on above: Performed By: #### S CAN CBC, BMP ####[address] Hematocrit (Bld) [Volume fraction] 25.9 % Low 38.8-50.0 [facility] Comment on above: Performed By: #### S CAN CBC, BMP ####[address] Hemoglobin (Bld) [Mass/Vol] 8.3 g/dL Low 13.0-17.0 [facility] Comment on above: Performed By: #### S CAN CBC, BMP ####[address] Hypochromasia Slight Normal [facility] Comment on above: Performed By: #### S CAN CBC, BMP ####[address] Lymphocytes (Bld) [#/Vol] 5.0 10*3/uL High 1.00-4.8 [facility] Comment on above: Performed By: #### S CAN CBC, BMP ####[address] Lymphocytes/100 WBC (Bld) 31.7 % Normal . [facility] Comment on above: Performed By: #### S CAN CBC, BMP ####[place] [id number] [facility] MCH (RBC) [Entitic mass] 27.0 pg Low 27.5-35.2 [facility] Comment on above: Performed By: #### S CAN CBC, BMP ####[place] [id number] [facility] MCV (RBC) [Entitic vol] 84.4 fL Normal 83.5-101 [facility] Comment on above: Performed By: #### S CAN CBC, BMP ####[place] [id number] [facility] Mean Corpuscular HGB Conc 32.0 g/dL Low 32.5-35.6 [facility] Comment on above: Performed By: #### S CAN CBC, BMP ####[place] [id number] [facility] Monocytes (Bld) [#/Vol] 1.5 10*3/uL High 0.0-0.8 [facility] Comment on above: Performed By: #### S CAN CBC, BMP ####[place] [id number] [facility] Monocytes/100 WBC (Bld) 9.6 % Normal . [facility] Comment on above: Performed By: #### S CAN CBC, BMP ####[place] [id number] [facility] Neutrophils (Bld) [#/Vol] 8.4 10*3/uL High 1.8-7.7 [facility] Comment on above: Performed By: #### S CAN CBC, BMP ####[place] [id number] [facility] Neutrophils/100 WBC (Bld) 54.1 % Normal . [facility] Comment on above: Performed By: #### S CAN CBC, BMP ####[place] [id number] [facility] Nucleated RBC/100 WBC (Bld) [Ratio] 0.1 % Normal 0-0.5 [facility] Comment on above: Performed By: #### S CAN CBC, BMP ####[address] [address] [facility] Platelet Estimate Normal Normal Normal [facility] Comment on above: Performed By: #### S CAN CBC, BMP ####[address] [address] [facility] Platelet mean volume (Bld) [Entitic vol] 10.6 fL High 6.6-10.1 [facility] Comment on above: Performed By: #### S CAN CBC, BMP ####[address] [address] [facility] Platelet Morphology Normal Normal Normal [facility] Comment on above: Result Comment: PERF ORMED BY:[address] [place], [place] [phone] MEDICAL DIRECTORCHRISTO PINO M.D. Performed By: #### S CAN CBC, BMP ####[place] [id number] [facility] Platelets (Bld) [#/Vol] 263 10*3/uL Normal 150-450 [facility] Comment on above: Performed By: #### S CAN CBC, BMP ####[place] [id number] [facility] RBC (Bld) [#/Vol] 3.06 10*6/uL Low 3.90-5.60 [facility] Comment on above: Performed By: #### S CAN CBC, BMP ####[place] [id number] [facility] Schistocytes Slight Normal [facility] Comment on above: Performed By: #### S CAN CBC, BMP ####[place] [id number] [facility] Target Cells Moderate Normal [facility] Comment on above: Performed By: #### S CAN CBC, BMP ####[address] [address] [facility] WBC (Bld) [#/Vol] 15.6 10*3/uL High 4.5-11.0 [facility] Comment on above: Performed By: #### S CAN CBC, BMP ####[facility] [id number] [place] [id number] [facility] Serum or plasma calcium blaire urement (mass/volume)Ordered By: Chris Mccarthy on 11-21-2021 Calcium [Mass/Vol] 8.1 mg/dL 8.2-10.2 [facility] Serum or plasma chloride melany surement (moles/volume)Ordered By: Chris Mccarthy on 11-21-2021 Chloride [Moles/Vol] 105 mmol/L 95-114 [facility] Serum or plasma glucose blaire urement (mass/volume)Ordered By: Chris Mccarthy on 11-21-2021 Glucose [Mass/Vol] 104 mg/dL 70-100 [facility] Comment on above: ADA recommended refe rence range Random Glucose Reference Range is dependent on time and content of last meal. Glucose of more than 200 mg/dL in a nonstressed, ambulatory subject supports the diagnosis of Diabetes Mellitus. ADA recommended refe rence rangeRandom Glucose Reference Range is dependent on time and content of last meal. Glucose of more than 200 mg/dL in a nonstressed, ambulatory subject supports the diagnosis of Diabetes Mellitus. Serum or plasma potassium me asurement (moles/volume)Ordered By: Chris Mccarthy on 11-21-2021 Potassium [Moles/Vol] 3.8 mmol/L 3.5-5.[address] [facility] Serum or plasma sodium measu rement (moles/volume)Ordered By: Chris Mccarthy on 11-21-2021 Sodium [Moles/Vol] 138 mmol/L 136-146 [facility] Serum or plasma total carbon dioxide measurement (moles/volume)Ordered By: Chris Mccarthy on 11-21-2021 CO2 [Moles/Vol] 23.6 mmol/L 22.0-30.0 [facility] Serum or plasma urea nitroge n measurement (mass/volume)Ordered By: Chris Mccarthy on 08-17-2022 Urea nitrogen [Mass/Vol] 45 mg/dL 12-28 [facility] Target cellsOrdered By: Arturo Mccarthy on 11-21-2021 Target cells LM Ql (Bld) Moderate [facility] XR chest 1V portableon 11-21 XR chest 1V portable Normal [facility] Activated partial thrombopla stin time (aPTT) in platelet poor plasma by coagulation aOrdered By: Riya Pitt on 11-20-2021 aPTT Coag (PPP) [Time] 34.2 s 25.1-36.5 [facility] Basic Metabolic Panelon 11-05 Calcium [Mass/Vol] 7.6 mg/dL Low 8.2-10.2 [facility] Comment on above: Performed By: #### B MP, SCAN CBC ####[facility] [id number] [place] [address] [facility] Chloride [Moles/Vol] 106 mmol/L Normal 95-114 [facility] Comment on above: Performed By: #### B MP, SCAN CBC ####[facility] [address] [place] [address] [facility] CO2 [Moles/Vol] 22.7 mmol/L Normal 22.0-30.0 [facility] Comment on above: Performed By: #### B MP, SCAN CBC ####[facility] [address] [place] [address] [facility] Creatinine [Mass/Vol] 3.43 mg/dL High 0.64-1.[address] [facility] Comment on above: Performed By: #### B MP, SCAN CBC ####[facility] [address] [place] [address] [place] Creatinine Clr Calc Pharmacy 25.89 [facility] Comment on above: Result Comment: PERF ORMED BY:[address] [address] [address] [place], [place] [phone] MEDICAL DIRECTORCHRISTO PINO M.D. Performed By: #### B MP, SCAN CBC ####[facility] [address] [place] [address] [place] Estimated GFR ( Cristo 21 [facility] Comment on above: Result Comment: GFR estimated reference range: According to KDOQI guidelines, <60 ml/min/1.73m2 is sufficient to diagnose a patient with chronic kidney disease. Performed By: #### B MP, SCAN CBC ####[facility] [address] [place] [address] [facility] Estimated GFR (Non- Am 18 [facility] Comment on above: Performed By: #### B MP, SCAN CBC ####[facility] [address] [place] [address] [facility] Glucose [Mass/Vol] 106 mg/dL High 70-100 [facility] Comment on above: Result Comment: [place] om Glucose Reference Range is dependent on time and content of last meal. Glucose of more than 200 mg/dL in a nonstressed, ambulatory subject supports the diagnosis of Diabetes Mellitus. ADA recommended reference range Performed By: #### B MP, SCAN CBC ####[address] [place] [address] [facility] Potassium [Moles/Vol] 3.5 mmol/L Normal 3.5-5.[address] [facility] Comment on above: Performed By: #### B MP, SCAN CBC ####[address] [place] [address] [facility] Sodium [Moles/Vol] 136 mmol/L Normal 136-146 [facility] Comment on above: Performed By: #### B MP, SCAN CBC ####[address] [place] [address] [facility] Urea nitrogen [Mass/Vol] 41 mg/dL High 9-23 [facility] Comment on above: Performed By: #### B MP, SCAN CBC ####[facility] [address] [place] [address] [facility] Glucose Poct Glucometerson 0 11-20-2021 Commemt1 Glu2: Cleaned Meter [facility] Comment on above: Result Comment: PERF ORMED BY:[address] [place], [place] [phone] MEDICAL DIRECTORCHRISTO PINO M.D. Performed By: #### G LULS ####Point of Care testing, Glucose [Mass/Vol] 91 mg/dL Normal [facility] Comment on above: Result Comment: [place] om Glucose Reference Range is dependent on time and content of last meal. Glucose of more than 200 mg/dL in a nonstressed, ambulatory subject supports the diagnosis of Diabetes Mellitus. Performed By: #### G LULS ####Point of Care testing, Glucose [Mass/Vol] 127 mg/dL Normal [facility] Comment on above: Result Comment: [place] om Glucose Reference Range is dependent on time and content of last meal. Glucose of more than 200 mg/dL in a nonstressed, ambulatory subject supports the diagnosis of Diabetes Mellitus.PERFORMED BY:[address] [place], [place] [phone] MEDICAL DIRECTORCHRISTO PINO M.D. Performed By: #### G LULS ####Point of Care testing, Glucose [Mass/Vol] 180 mg/dL Normal [facility] Comment on above: Result Comment: [place] om Glucose Reference Range is dependent on time and content of last meal. Glucose of more than 200 mg/dL in a nonstressed, ambulatory subject supports the diagnosis of Diabetes Mellitus.PERFORMED BY:[address] [address] [address] [place], [place] [phone] MEDICAL MOOSE PINO M.D. Performed By: #### G LULS ####Point of Care testing, Glucose [Mass/Vol] 120 mg/dL Normal [facility] Comment on above: Result Comment: [place] om Glucose Reference Range is dependent on time and content of last meal. Glucose of more than 200 mg/dL in a nonstressed, ambulatory subject supports the diagnosis of Diabetes Mellitus.PERFORMED BY:[address] [address] [place] [place], [place] [phone] MEDICAL DIRECTORCHRISTO PINO M.D. Performed By: #### G LULS ####Point of Care testing, Commemt1 Glu2: Cleaned Meter Normal [facility] Comment on above: Result Comment: PERF ORMED BY:[address] [place], [place] [phone] MEDICAL DIRECTORCHRISTO PINO M.D. Performed By: #### G JERRY ####Point of Care testing, Glucose [Mass/Vol] 128 mg/dL Normal [facility] Comment on above: Result Comment: [place] Glucose Reference Range is dependent on time and content of last meal. Glucose of more than 200 mg/dL in a nonstressed, ambulatory subject supports the diagnosis of Diabetes Mellitus. Performed By: #### G LUTESFAYE ####Point of Care testing, Laboratory - CoagulationOrde red By: Riya Pitt on 11-20-2021 PT Coag (PPP) [Time] 12.7 s 9.0-12.9 [facility] Partial Thromboplastin Timeo n 11-20-2021 aPTT Coag (Bld) [Time] 34.2 s Normal 25.1-36.5 [facility] Comment on above: Result Comment: PERF ORMED BY:[address] [place], [place] [phone] MEDICAL DIRECTORCHRISTO PINO M.D. Performed By: #### P TT, PT ####[facility] [place] [address] [facility] Platelet poor plasma interna tional normalized ratio (INR) by coagulation assay (relatOrdered By: Riya Pitt on 11-20-2021 INR Coag (PPP) [Relative time] 1.1 {INR} [facility] Comment on above: INR Therapeutic Rang e A) Pre- and Peroperative OAT started two weeks before surgery. NOT HIP SURGERY: 1.5 - 2.5 HIP SURGERY: 2 - 3 B) Primary and secondary prevention of venous THROMBOSIS: 2 - 3 C) Active venous thrombosis, pulmonary embolism and prevention of recurrent venous thrombosis: 2 - 3 D) Prevention of arterial thromboembolism including patients with mechanical heart valves: 3 - 4.5 INR Therapeutic Rang e A) Pre- and Peroperative OAT started two weeks before surgery. NOT HIP SURGERY: 1.5 - 2.5 HIP SURGERY: 2 - 3B) Primary and secondary prevention of venous THROMBOSIS: 2 - 3C) Active venous thrombosis, pulmonary embolismand prevention of recurrent venous thrombosis: 2 - 3D) Prevention of arterial thromboembolismincluding patients with mechanical heart valves: 3 - 4.5 Prothrombin Time INRon 11-20 INR Coag (PPP) [Relative time] 1.1 {INR} Normal [facility] Comment on above: Result Comment: INR Therapeutic Range A) Pre- and Peroperative OAT started two weeks before surgery. NOT HIP SURGERY: 1.5 - 2.5 HIP SURGERY: 2 - 3 B) Primary and secondary prevention of venous THROMBOSIS: 2 - 3 C) Active venous thrombosis, pulmonary embolism and prevention of recurrent venous thrombosis: 2 - 3 D) Prevention of arterial thromboembolism including patients with mechanical heart valves: 3 - 4.5 Performed By: #### P TT, PT ####[place] [phone] PT Coag (PPP) [Time] 12.7 s Normal 9.0-12.9 [facility] Comment on above: Performed By: #### P TT, PT ####[place] [id number] Scan and CBCon 11-20-2021 Anisocytosis Ql (Bld) Moderate Normal [facility] Comment on above: Performed By: #### B MP, SCAN CBC ####[address] Basophils (Bld) [#/Vol] 0.1 10*3/uL Normal 0.0-0.2 [facility] Comment on above: Performed By: #### B MP, SCAN CBC ####[address] Basophils/100 WBC (Bld) 0.8 % Normal . [facility] Comment on above: Performed By: #### B MP, SCAN CBC ####[address] Eosinophils (Bld) [#/Vol] 0.4 10*3/uL Normal 0.0-0.45 [facility] Comment on above: Performed By: #### B MP, SCAN CBC ####[address] [place] [address] [facility] Eosinophils/100 WBC (Bld) 2.9 % Normal . [facility] Comment on above: Performed By: #### B MP, SCAN CBC ####[address] [address] [facility] Erythrocyte distribution width (RBC) [Ratio] 17.9 % High 12.0-14.8 [facility] Comment on above: Performed By: #### B MP, SCAN CBC ####[place] [id number] [facility] Hematocrit (Bld) [Volume fraction] 24.4 % Low 38.8-50.0 [facility] Comment on above: Performed By: #### B MP, SCAN CBC ####[address] [address] [facility] Hemoglobin (Bld) [Mass/Vol] 7.7 g/dL Low 13.0-17.0 [facility] Comment on above: Performed By: #### B MP, SCAN CBC ####[place] [id number] [facility] Lymphocytes (Bld) [#/Vol] 5.6 10*3/uL High 1.00-4.8 [facility] Comment on above: Performed By: #### B MP, SCAN CBC ####[place] [id number] [facility] Lymphocytes/100 WBC (Bld) 38.6 % Normal . [facility] Comment on above: Performed By: #### B MP, SCAN CBC ####[address] [address] [facility] MCH (RBC) [Entitic mass] 27.0 pg Low 27.5-35.2 [facility] Comment on above: Performed By: #### B MP, SCAN CBC ####[address] [address] [facility] MCV (RBC) [Entitic vol] 85.5 fL Normal 83.5-101 [facility] Comment on above: Performed By: #### B MP, SCAN CBC ####[facility] [address] [place] [address] [facility] Mean Corpuscular HGB Conc 31.5 g/dL Low 32.5-35.6 [facility] Comment on above: Performed By: #### B MP, SCAN CBC ####[address] [place] [address] [facility] Monocytes (Bld) [#/Vol] 1.3 10*3/uL High 0.0-0.8 [facility] Comment on above: Performed By: #### B MP, SCAN CBC ####[address] [place] [address] [facility] Monocytes/100 WBC (Bld) 8.6 % Normal . [facility] Comment on above: Performed By: #### B MP, SCAN CBC ####[address] [address] [facility] Neutrophils (Bld) [#/Vol] 7.2 10*3/uL Normal 1.8-7.7 [facility] Comment on above: Performed By: #### B MP, SCAN CBC ####[address] [address] [facility] Neutrophils/100 WBC (Bld) 49.1 % Normal . [facility] Comment on above: Performed By: #### B MP, SCAN CBC ####[address] [place] [address] [facility] Nucleated RBC/100 WBC (Bld) [Ratio] 0.2 % Normal 0-0.5 [facility] Comment on above: Performed By: #### B MP, SCAN CBC ####[address] [place] [address] [facility] Platelet Estimate Normal Normal Normal [facility] Comment on above: Performed By: #### B MP, SCAN CBC ####[address] [place] [address] [facility] Platelet mean volume (Bld) [Entitic vol] 9.7 fL Normal 6.6-10.1 [facility] Comment on above: Performed By: #### B MP, SCAN CBC ####[place] [phone] Platelet Morphology Normal Normal Normal [facility] Comment on above: Result Comment: PERF ORMED BY:[address] [place], [place] [phone] MEDICAL MOOSE PINO M.D. Performed By: #### B MP, SCAN CBC ####[address] Platelets (Bld) [#/Vol] 240 10*3/uL Normal 150-450 [facility] Comment on above: Performed By: #### B MP, SCAN CBC ####[address] RBC (Bld) [#/Vol] 2.85 10*6/uL Low 3.90-5.60 [facility] Comment on above: Performed By: #### B MP, SCAN CBC ####[address] Schistocytes Slight Normal [facility] Comment on above: Performed By: #### B MP, SCAN CBC ####[address] Target Cells Moderate Normal [facility] Comment on above: Performed By: #### B MP, SCAN CBC ####[address] WBC (Bld) [#/Vol] 14.6 10*3/uL High 4.5-11.0 [facility] Comment on above: Performed By: #### B MP, SCAN CBC ####[address] Serum or plasma vancomycin m easurement (mass/volume)Ordered By: Chris Mccarthy on 11-20-2021 Vancomycin [Mass/Vol] 24.3 ug/mL 5.0-20.[address] [facility] Comment on above: Last dose: - Vancomycin,Randomon 11-21-19 Vancomycin,Random 24.3 ug/mL High 5.0-20.0 [facility] Comment on above: Order Comment: Date of last dose?: [id number] Time of last dose?: 0900 Result Comment: Last dose: -PERFORMED BY:[address] [address] [address] [place], [place] [phone] MEDICAL DIRECTORCHRISTO PINO M.D. Performed By: #### V ANCR ####[address] [address] [facility] Bacterial blood cultureOrder ed By: Ivan Springer on 11-19-2021 Bacteria identified Cx Nom (Bld) NO GROWTH 5 DAYS [facility] Basic Metabolic Panelon 11-05 Calcium [Mass/Vol] 7.7 mg/dL Low 8.2-10.2 [facility] Comment on above: Performed By: #### D IFF CBC, BMP ####[address] [address] [facility] Chloride [Moles/Vol] 106 mmol/L Normal 95-114 [facility] Comment on above: Performed By: #### D IFF CBC, BMP ####[address] [address] [facility] CO2 [Moles/Vol] 21.8 mmol/L Low 22.0-30.0 [facility] Comment on above: Performed By: #### D IFF CBC, BMP ####[address] [address] [place] Creatinine [Mass/Vol] 3.38 mg/dL High 0.64-1.[address] [facility] Comment on above: Performed By: #### D IFF CBC, BMP ####[facility] [address] [place] [address] [place] Creatinine Clr Calc Pharmacy 26.58 Normal [facility] Comment on above: Result Comment: PERF ORMED BY:[address] [address] [address] [place], [place] [phone] MEDICAL DIRECTORCHRISTO PINO M.D. Performed By: #### D IFF CBC, BMP ####[facility] [place] [address] [facility] Estimated GFR ( Cristo 22 [facility] Comment on above: Result Comment: GFR estimated reference range: According to KDOQI guidelines, <60 ml/min/1.73m2 is sufficient to diagnose a patient with chronic kidney disease. Performed By: #### D IFF CBC, BMP ####[facility] [address] [place] [address] [facility] Estimated GFR (Non- Am 18 [facility] Comment on above: Performed By: #### D IFF CBC, BMP ####[address] [place] [address] [facility] Glucose [Mass/Vol] 102 mg/dL High 70-100 [facility] Comment on above: Result Comment: [place] Glucose Reference Range is dependent on time and content of last meal. Glucose of more than 200 mg/dL in a nonstressed, ambulatory subject supports the diagnosis of Diabetes Mellitus. ADA recommended reference range Performed By: #### D IFF CBC, BMP ####[address] [place] [address] [facility] Potassium [Moles/Vol] 3.4 mmol/L Low 3.5-5.[address] [facility] Comment on above: Performed By: #### D IFF CBC, BMP ####[address] [place] [address] [facility] Sodium [Moles/Vol] 135 mmol/L Low 136-146 [facility] Comment on above: Performed By: #### D IFF CBC, BMP ####[address] [place] [address] [facility] Urea nitrogen [Mass/Vol] 40 mg/dL High 9-23 [facility] Comment on above: Performed By: #### D IFF CBC, BMP ####[facility] [address] [place] [address] [facility] CT abdomen pelvis wo conon 0 11-19-2021 CT abdomen pelvis wo con Normal [facility] Diff and CBCon 11-19-2021 Anisocytosis Ql (Bld) Moderate Normal [facility] Comment on above: Performed By: #### D IFF CBC, BMP ####[address] [address] [facility] Eosinophils/100 WBC (Bld) 4 % High 1-3 [facility] Comment on above: Performed By: #### D IFF CBC, BMP ####[address] [address] [facility] Erythrocyte distribution width (RBC) [Ratio] 18.1 % High 12.0-14.8 [facility] Comment on above: Performed By: #### D IFF CBC, BMP ####[address] [address] [facility] Hematocrit (Bld) [Volume fraction] 25.8 % Low 38.8-50.0 [facility] Comment on above: Performed By: #### D IFF CBC, BMP ####[address] [address] [facility] Hemoglobin (Bld) [Mass/Vol] 8.2 g/dL Low 13.0-17.0 [facility] Comment on above: Performed By: #### D IFF CBC, BMP ####[place] [id number] [facility] Hypochromasia Slight Normal [facility] Comment on above: Performed By: #### D IFF CBC, BMP ####[address] [address] [facility] Lymphocytes/100 WBC (Bld) 31 % Normal 18-42 [facility] Comment on above: Performed By: #### D IFF CBC, BMP ####[address] [address] [facility] MCH (RBC) [Entitic mass] 27.0 pg Low 27.5-35.2 [facility] Comment on above: Performed By: #### D IFF CBC, BMP ####[address] [address] [facility] MCV (RBC) [Entitic vol] 85.5 fL Normal 83.5-101 [facility] Comment on above: Performed By: #### D IFF CBC, BMP ####[address] [address] [facility] Mean Corpuscular HGB Conc 31.6 g/dL Low 32.5-35.6 [facility] Comment on above: Performed By: #### D IFF CBC, BMP ####[address] [address] [facility] Monocytes/100 WBC (Bld) 7 % Normal 2-11 [facility] Comment on above: Performed By: #### D IFF CBC, BMP ####[address] [address] [facility] Nucleated RBC/100 WBC (Bld) [Ratio] 0.1 % Normal 0-0.5 [facility] Comment on above: Result Comment: PERF ORMED BY:[address] [place], [place] [phone] MEDICAL DIRECTORCHRISTO PINO M.D. Performed By: #### D IFF CBC, BMP ####[address] [address] [facility] Platelet Estimate Normal Normal Normal [facility] Comment on above: Performed By: #### D IFF CBC, BMP ####[address] [address] [facility] Platelet mean volume (Bld) [Entitic vol] 9.5 fL Normal 6.6-10.1 [facility] Comment on above: Performed By: #### D IFF CBC, BMP ####[address] [address] [facility] Platelet Morphology Normal Normal Normal [facility] Comment on above: Result Comment: PERF ORMED BY:[place] [address] [address] [place], [place] [phone] MEDICAL DIRECTORCHRISTO PINO M.D. Performed By: #### D IFF CBC, BMP ####[address] [address] [place] Platelets (Bld) [#/Vol] 227 10*3/uL Normal 150-450 [facility] Comment on above: Performed By: #### D IFF CBC, BMP ####[facility] [address] [place] [address] [facility] RBC (Bld) [#/Vol] 3.02 10*6/uL Low 3.90-5.60 [facility] Comment on above: Performed By: #### D IFF CBC, BMP ####[address] [address] [facility] Schistocytes Slight Normal [facility] Comment on above: Performed By: #### D IFF CBC, BMP ####[facility] [address] [place] [address] [facility] Segmented neutrophils/100 WBC (Bld) 58 % Normal 50-70 [facility] Comment on above: Performed By: #### D IFF CBC, BMP ####[place] [place] [address] [facility] Target Cells Moderate Normal [facility] Comment on above: Performed By: #### D IFF CBC, BMP ####[facility] [address] [place] [address] [facility] WBC (Bld) [#/Vol] 14.8 10*3/uL High 4.5-11.0 [facility] Comment on above: Performed By: #### D IFF CBC, BMP ####[address] [address] [facility] Glucose Poct Glucometerson 0 11-19-2021 Commemt1 Glu2: Cleaned Meter Normal [facility] Comment on above: Result Comment: PERF ORMED BY:[address] [place], [place] [phone] MEDICAL DIRECTORCHRISTO PINO M.D. Performed By: #### G JERRY ####Point of Care testing, Glucose [Mass/Vol] 130 mg/dL Normal [facility] Comment on above: Result Comment: [place] Glucose Reference Range is dependent on time and content of last meal. Glucose of more than 200 mg/dL in a nonstressed, ambulatory subject supports the diagnosis of Diabetes Mellitus. Performed By: #### G LULS ####Point of Care testing, Glucose [Mass/Vol] 143 mg/dL Normal [facility] Comment on above: Result Comment: [facility] Glucose Reference Range is dependent on time and content of last meal. Glucose of more than 200 mg/dL in a nonstressed, ambulatory subject supports the diagnosis of Diabetes Mellitus.PERFORMED BY:[address] [place], [place] [phone] MEDICAL DIRECTORCHRISTO PINO M.D. Performed By: #### G LULS ####Point of Care testing, Glucose [Mass/Vol] 166 mg/dL Normal [facility] Comment on above: Result Comment: [facility] Glucose Reference Range is dependent on time and content of last meal. Glucose of more than 200 mg/dL in a nonstressed, ambulatory subject supports the diagnosis of Diabetes Mellitus.PERFORMED BY:[address] [place], [place] [phone] MEDICAL MOOSE PINO M.D. Performed By: #### G LULS ####Point of Care testing, Glucose [Mass/Vol] 128 mg/dL Normal [facility] Comment on above: Result Comment: [facility] Glucose Reference Range is dependent on time and content of last meal. Glucose of more than 200 mg/dL in a nonstressed, ambulatory subject supports the diagnosis of Diabetes Mellitus.PERFORMED BY:[place] [address] [address] [place], [place] [phone] MEDICAL MOOSE PINO M.D. Performed By: #### G LULS ####Point of Care testing, Commemt1 Glu2: Cleaned Meter Normal [facility] Comment on above: Result Comment: PERF ORMED BY:[place] [address] [address] [place], [place] [phone] MEDICAL MOOSE PINO M.D. Performed By: #### G LULS ####Point of Care testing, Glucose [Mass/Vol] 118 mg/dL Normal [facility] Comment on above: Result Comment: [place] Glucose Reference Range is dependent on time and content of last meal. Glucose of more than 200 mg/dL in a nonstressed, ambulatory subject supports the diagnosis of Diabetes Mellitus. Performed By: #### G JERRY ####Point of Care testing, Lymphocytes/100 WBC Auto (Bl d)Ordered By: Chris Mccarthy on 11-19-2021 Lymphocytes/100 WBC (Bld) 31 % 18-42 [facility] Monocyte %Ordered By: Karla Mccarthy on 11-19-2021 Monocytes/100 WBC (Bld) 4 % 1-3 [facility] Monocytes/100 WBC Manual cnt (Bld)Ordered By: Chris Mccarthy on 11-19-2021 Monocytes/100 WBC (Bld) 7 % 2-11 [facility] Segmented neutrophils/100 WB C Manual cnt (Bld)Ordered By: Chris Mccarthy on 11-19-2021 Segmented neutrophils/100 WBC (Bld) 58 % 50-70 [facility] Basic Metabolic Panelon 11-05 Calcium [Mass/Vol] 7.6 mg/dL Low 8.2-10.2 [facility] Comment on above: Performed By: #### C BC, BMP, DIFF CBC ####[facility] [address] [place] [address] [place] Chloride [Moles/Vol] 108 mmol/L Normal 95-114 [facility] Comment on above: Performed By: #### C BC, BMP, DIFF CBC ####[facility] [address] [place] [address] [place] CO2 [Moles/Vol] 22.3 mmol/L Normal 22.0-30.0 [facility] Comment on above: Performed By: #### C BC, BMP, DIFF CBC ####[facility] [address] [place] [address] [facility] Creatinine [Mass/Vol] 3.29 mg/dL High 0.64-1.[address] [facility] Comment on above: Performed By: #### C BC, BMP, DIFF CBC ####[facility] [address] [place] [address] [facility] Creatinine Clr Calc Pharmacy 27.18 [facility] Comment on above: Result Comment: PERF ORMED BY:[facility] [place], [place] [phone] MEDICAL MOOSE PINO M.D. Performed By: #### C BC, BMP, DIFF CBC ####[address] [place] [address] [facility] Estimated GFR ( Cristo 23 [facility] Comment on above: Result Comment: GFR estimated reference range: According to KDOQI guidelines, <60 ml/min/1.73m2 is sufficient to diagnose a patient with chronic kidney disease. Performed By: #### C BC, BMP, DIFF CBC ####[address] [place] [address] [facility] Estimated GFR (Non- Am 19 [facility] Comment on above: Performed By: #### C BC, BMP, DIFF CBC ####[address] [address] [facility] Glucose [Mass/Vol] 82 mg/dL Normal 70-100 [facility] Comment on above: Result Comment: [place] Glucose Reference Range is dependent on time and content of last meal. Glucose of more than 200 mg/dL in a nonstressed, ambulatory subject supports the diagnosis of Diabetes Mellitus. ADA recommended reference range Performed By: #### C BC, BMP, DIFF CBC ####[address] [address] [facility] Potassium [Moles/Vol] 3.7 mmol/L Normal 3.5-5.[address] [facility] Comment on above: Performed By: #### C BC, BMP, DIFF CBC ####[address] [place] [address] [facility] Sodium [Moles/Vol] 138 mmol/L Normal 136-146 [facility] Comment on above: Performed By: #### C BC, BMP, DIFF CBC ####[address] [address] [facility] Urea nitrogen [Mass/Vol] 41 mg/dL High 9-23 [facility] Comment on above: Performed By: #### C BC, BMP, DIFF CBC ####[address] Complete Blood Count Auto Di ffon 11-18-2021 Erythrocyte distribution width (RBC) [Ratio] 17.8 % High 12.0-14.8 [facility] Comment on above: Performed By: #### C BC, BMP, DIFF CBC ####[address] Hematocrit (Bld) [Volume fraction] 23.9 % Low 38.8-50.0 [facility] Comment on above: Performed By: #### C BC, BMP, DIFF CBC ####[address] Hemoglobin (Bld) [Mass/Vol] 7.5 g/dL Low 13.0-17.0 [facility] Comment on above: Performed By: #### C BC, BMP, DIFF CBC ####[address] MCH (RBC) [Entitic mass] 27.2 pg Low 27.5-35.2 [facility] Comment on above: Performed By: #### C BC, BMP, DIFF CBC ####[address] MCV (RBC) [Entitic vol] 86.0 fL Normal 83.5-101 [facility] Comment on above: Performed By: #### C BC, BMP, DIFF CBC ####[address] Mean Corpuscular HGB Conc 31.6 g/dL Low 32.5-35.6 [facility] Comment on above: Performed By: #### C BC, BMP, DIFF CBC ####[address] Nucleated RBC/100 WBC (Bld) [Ratio] 0.2 % Normal 0-0.5 [facility] Comment on above: Result Comment: PERF ORMED BY:[address] [place], [place] [phone] MEDICAL DIRECTORCHRISTO PINO M.D. Performed By: #### C BC, BMP, DIFF CBC ####[address] [address] [facility] Platelet mean volume (Bld) [Entitic vol] 9.2 fL Normal 6.6-10.1 [facility] Comment on above: Performed By: #### C BC, BMP, DIFF CBC ####[address] [address] [facility] Platelets (Bld) [#/Vol] 221 10*3/uL Normal 150-450 [facility] Comment on above: Performed By: #### C BC, BMP, DIFF CBC ####[address] RBC (Bld) [#/Vol] 2.78 10*6/uL Low 3.90-5.60 [facility] Comment on above: Performed By: #### C BC, BMP, DIFF CBC ####[address] WBC (Bld) [#/Vol] 15.3 10*3/uL High 4.5-11.0 [facility] Comment on above: Performed By: #### C BC, BMP, DIFF CBC ####[id number] [facility] Diff and CBCon 11-18-2021 Anisocytosis Ql (Bld) Moderate Normal [facility] Comment on above: Performed By: #### C BC, BMP, DIFF CBC ####[id number] [facility] Eosinophils/100 WBC (Bld) 7 % High 1-3 [facility] Comment on above: Performed By: #### C BC, BMP, DIFF CBC ####[address] Hypochromasia Moderate Normal [facility] Comment on above: Performed By: #### C BC, BMP, DIFF CBC ####[facility] [place] [address] [place] Lymphocytes/100 WBC (Bld) 25 % Normal 18-42 [facility] Comment on above: Performed By: #### C BC, BMP, DIFF CBC ####[address] [place] [address] [facility] Monocytes/100 WBC (Bld) 2 % Normal 2-11 [facility] Comment on above: Performed By: #### C BC, BMP, DIFF CBC ####[address] [address] [facility] Platelet Estimate Normal Normal Normal [facility] Comment on above: Performed By: #### C BC, BMP, DIFF CBC ####[address] [address] [facility] Platelet Morphology Normal Normal Normal [facility] Comment on above: Result Comment: PERF ORMED BY:[address] [place], [place] [phone] MEDICAL DIRECTORCHRISTO PINO M.D. Performed By: #### C BC, BMP, DIFF CBC ####[address] [address] [facility] Segmented neutrophils/100 WBC (Bld) 66 % Normal 50-70 [facility] Comment on above: Performed By: #### C BC, BMP, DIFF CBC ####[address] [address] [facility] Target Cells Moderate Normal [facility] Comment on above: Performed By: #### C BC, BMP, DIFF CBC ####[address] [address] [facility] Glucose Poct Glucometerson 0 11-18-2021 Commemt1 Glu2: Cleaned Meter Normal [facility] Comment on above: Result Comment: PERF ORMED BY:[address] [place], [place] [phone] MEDICAL DIRECTORCHRISTO PINO M.D. Performed By: #### G LULS ####Point of Care testing, Glucose [Mass/Vol] 146 mg/dL Normal [facility] Comment on above: Result Comment: [place] Glucose Reference Range is dependent on time and content of last meal. Glucose of more than 200 mg/dL in a nonstressed, ambulatory subject supports the diagnosis of Diabetes Mellitus. Performed By: #### G LULS ####Point of Care testing, Glucose [Mass/Vol] 154 mg/dL Normal [facility] Comment on above: Result Comment: [place] om Glucose Reference Range is dependent on time and content of last meal. Glucose of more than 200 mg/dL in a nonstressed, ambulatory subject supports the diagnosis of Diabetes Mellitus.PERFORMED BY:[address] [place], [place] [phone] MEDICAL DIRECTORCHRISTO PINO M.D. Performed By: #### G LULS ####Point of Care testing, Glucose [Mass/Vol] 144 mg/dL Normal [facility] Comment on above: Result Comment: [place] om Glucose Reference Range is dependent on time and content of last meal. Glucose of more than 200 mg/dL in a nonstressed, ambulatory subject supports the diagnosis of Diabetes Mellitus.PERFORMED BY:[address] [place], [place] [phone] MEDICAL MOOSE PINO M.D. Performed By: #### G LULS ####Point of Care testing, Glucose [Mass/Vol] 115 mg/dL Normal [facility] Comment on above: Result Comment: [place] om Glucose Reference Range is dependent on time and content of last meal. Glucose of more than 200 mg/dL in a nonstressed, ambulatory subject supports the diagnosis of Diabetes Mellitus.PERFORMED BY:[address] [place], [place] [phone] MEDICAL DIRECTORCHRISTO PINO M.D. Performed By: #### G LULS ####Point of Care testing, Commemt1 Glu2: Cleaned Meter Normal [facility] Comment on above: Result Comment: PERF ORMED BY:[address] [place]ITTNYEllenJeanetteM[place], [place] [phone] MEDICAL DIRECTORCHRISTO PINO M.D. Performed By: #### G JERRY ####Point of Care testing, Glucose [Mass/Vol] 100 mg/dL Normal [facility] Comment on above: Result Comment: [facility] Glucose Reference Range is dependent on time and content of last meal. Glucose of more than 200 mg/dL in a nonstressed, ambulatory subject supports the diagnosis of Diabetes Mellitus. Performed By: #### G JERRY ####Point of Care testing, Vancomycin,Randomon 11-19-19 Vancomycin,Random 19.8 ug/mL Normal 5.0-20.0 [facility] Comment on above: Order Comment: Date of last dose?: [id number] Time of last dose?: 0800 Result Comment: Last dose: -PERFORMED BY:[address] [place], [place] [phone] MEDICAL DIRECTORCHRISTO PINO M.D. Performed By: #### V ANCR ####[address] [address] [facility] Basic Metabolic Panelon 11-05 Calcium [Mass/Vol] 8.1 mg/dL Low 8.2-10.2 [facility] Comment on above: Performed By: #### D IFF CBC, BMP ####[facility] [id number] [place] [address] [facility] Chloride [Moles/Vol] 107 mmol/L Normal 95-114 [facility] Comment on above: Performed By: #### D IFF CBC, BMP ####[facility] [address] [place] [address] [facility] CO2 [Moles/Vol] 21.4 mmol/L Low 22.0-30.0 [facility] Comment on above: Performed By: #### D IFF CBC, BMP ####[facility] [address] [place] [address] [facility] Creatinine [Mass/Vol] 3.24 mg/dL High 0.64-1.[address] [facility] Comment on above: Performed By: #### D IFF CBC, BMP ####[facility] [address] [place] [address] [facility] Creatinine Clr Calc Pharmacy 28.17 [facility] Comment on above: Result Comment: PERF ORMED BY:[address] [place], [place] [phone] MEDICAL DIRECTORCHRISTO PINO M.D. Performed By: #### D IFF CBC, BMP ####[facility] [address] [place] [address] [facility] Estimated GFR ( [address] 23 [facility] Comment on above: Result Comment: G[place] estimated reference range: According to KDOQI guidelines, <60 ml/min/1.73m2 is sufficient to diagnose a patient with chronic kidney disease. Performed By: #### D IFF CBC, BMP ####[address] [place] [address] [facility] Estimated GFR (Non- Am 19 [facility] Comment on above: Performed By: #### D IFF CBC, BMP ####[address] [place] [address] [facility] Glucose [Mass/Vol] 58 mg/dL Low 70-100 [facility] Comment on above: Result Comment: [place] Glucose Reference Range is dependent on time and content of last meal. Glucose of more than 200 mg/dL in a nonstressed, ambulatory subject supports the diagnosis of Diabetes Mellitus. ADA recommended reference range Performed By: #### D IFF CBC, BMP ####[facility] [address] [place] [address] [facility] Potassium [Moles/Vol] 4.2 mmol/L Normal 3.5-5.[address] [facility] Comment on above: Performed By: #### D IFF CBC, BMP ####[facility] [place] [address] [facility] Sodium [Moles/Vol] 136 mmol/L Normal 136-146 [facility] Comment on above: Performed By: #### D IFF CBC, BMP ####[facility] [address] [place] [address] [facility] Urea nitrogen [Mass/Vol] 42 mg/dL High 9-23 [facility] Comment on above: Performed By: #### D IFF CBC, BMP ####[address] [address] [facility] Basophils/100 WBC Auto (Bld) Ordered By: Chris Mccarthy on 11-17-2021 Basophils/100 WBC (Bld) 1 % 0-2 [facility] Diff and CBCon 11-17-2021 Anisocytosis Ql (Bld) Moderate Normal [facility] Comment on above: Performed By: #### D IFF CBC, BMP ####[id number] [facility] Basophils/100 WBC (Bld) 1 % Normal 0-2 [facility] Comment on above: Performed By: #### D IFF CBC, BMP ####[id number] [facility] Eosinophils/100 WBC (Bld) 4 % High 1-3 [facility] Comment on above: Performed By: #### D IFF CBC, BMP ####[id number] [facility] Erythrocyte distribution width (RBC) [Ratio] 18.2 % High 12.0-14.8 [facility] Comment on above: Performed By: #### D IFF CBC, BMP ####[address] [address] [facility] Hematocrit (Bld) [Volume fraction] 24.9 % Low 38.8-50.0 [facility] Comment on above: Performed By: #### D IFF CBC, BMP ####[address] [address] [facility] Hemoglobin (Bld) [Mass/Vol] 7.9 g/dL Low 13.0-17.0 [facility] Comment on above: Performed By: #### D IFF CBC, BMP ####[address] [address] [facility] Hypochromasia Slight Normal [facility] Comment on above: Performed By: #### D IFF CBC, BMP ####[address] [place] [address] [facility] Large Platelets Slight Normal [facility] Comment on above: Result Comment: PERF ORMED BY:[address] [place], [place] [phone] MEDICAL DIRECTORCHRISTO PINO M.D. Performed By: #### D IFF CBC, BMP ####[address] [place] [address] [facility] Lymphocytes/100 WBC (Bld) 15 % Low 18-42 [facility] Comment on above: Performed By: #### D IFF CBC, BMP ####[address] [place] [address] [facility] MCH (RBC) [Entitic mass] 27.5 pg Normal 27.5-35.2 [facility] Comment on above: Performed By: #### D IFF CBC, BMP ####[address] [place] [address] [facility] MCV (RBC) [Entitic vol] 86.7 fL Normal 83.5-101 [facility] Comment on above: Performed By: #### D IFF CBC, BMP ####[address] [address] [facility] Mean Corpuscular HGB Conc 31.7 g/dL Low 32.5-35.6 [facility] Comment on above: Performed By: #### D IFF CBC, BMP ####[address] [id number] [facility] Monocytes/100 WBC (Bld) 2 % Normal 2-11 [facility] Comment on above: Performed By: #### D IFF CBC, BMP ####[address] [facility] Nucleated RBC/100 WBC (Bld) [Ratio] 0.1 % Normal 0-0.5 [facility] Comment on above: Result Comment: PERF ORMED BY:[address] [place], [place] [phone] MEDICAL DIRECTORCHRISTO PINO M.D. Performed By: #### D IFF CBC, BMP ####[address] [place] [address] [facility] Platelet Estimate Normal Normal Normal [facility] Comment on above: Performed By: #### D IFF CBC, BMP ####[address] [place] [address] [facility] Platelet mean volume (Bld) [Entitic vol] 10.1 fL Normal 6.6-10.1 [facility] Comment on above: Performed By: #### D IFF CBC, BMP ####[address] [address] [facility] Platelets (Bld) [#/Vol] 191 10*3/uL Normal 150-450 [facility] Comment on above: Performed By: #### D IFF CBC, BMP ####[address] [address] [facility] Poikilocytosis Slight Normal [facility] Comment on above: Performed By: #### D IFF CBC, BMP ####[address] [address] [facility] RBC (Bld) [#/Vol] 2.88 10*6/uL Low 3.90-5.60 [facility] Comment on above: Performed By: #### D IFF CBC, BMP ####[address] [address] [facility] Segmented neutrophils/100 WBC (Bld) 78 % High 50-70 [facility] Comment on above: Performed By: #### D IFF CBC, BMP ####[address] [id number] [facility] Target Cells Moderate Normal [facility] Comment on above: Performed By: #### D IFF CBC, BMP ####[id number] [facility] WBC (Bld) [#/Vol] 21.3 10*3/uL High 4.5-11.0 [facility] Comment on above: Performed By: #### D IFF CBC, BMP ####[facility] [address] [place] [address] [facility] Glucose Poct Glucometerson 0 11-17-2021 Commemt1 Glu2: Cleaned Meter [facility] Comment on above: Result Comment: PERF ORMED BY:[address] [address] [address] [place], [place] [phone] MEDICAL DIRECTORCHRISTO PINO M.D. Performed By: #### G LULS ####Point of Care testing, Glucose [Mass/Vol] 133 mg/dL Normal [facility] Comment on above: Result Comment: [place] Glucose Reference Range is dependent on time and content of last meal. Glucose of more than 200 mg/dL in a nonstressed, ambulatory subject supports the diagnosis of Diabetes Mellitus. Performed By: #### G LULS ####Point of Care testing, Commemt1 Glu2: Cleaned Meter [facility] Comment on above: Result Comment: PERF ORMED BY:[address] [address] [place], [place] [phone] MEDICAL MOOSE PINO M.D. Performed By: #### G LULS ####Point of Care testing, Glucose [Mass/Vol] 97 mg/dL Normal [facility] Comment on above: Result Comment: [place] Glucose Reference Range is dependent on time and content of last meal. Glucose of more than 200 mg/dL in a nonstressed, ambulatory subject supports the diagnosis of Diabetes Mellitus. Performed By: #### G LULS ####Point of Care testing, Commemt1 Glu2: Cleaned Meter [facility] Comment on above: Result Comment: PERF ORMED BY:[address] [address] [place] [place], [place] [phone] MEDICAL DIRECTORCHRISTO PINO M.D. Performed By: #### G LULS ####Point of Care testing, Glucose [Mass/Vol] 98 mg/dL Normal [facility] Comment on above: Result Comment: [place] om Glucose Reference Range is dependent on time and content of last meal. Glucose of more than 200 mg/dL in a nonstressed, ambulatory subject supports the diagnosis of Diabetes Mellitus. Performed By: #### G LULS ####Point of Care testing, Commemt1 Glu2: Cleaned Meter Normal [facility] Comment on above: Result Comment: PERF ORMED BY:[address] [place], [place] [phone] MEDICAL DIRECTORCHRISTO PINO M.D. Performed By: #### G LULS ####Point of Care testing, Glucose [Mass/Vol] 72 mg/dL Normal [facility] Comment on above: Result Comment: [facility] Glucose Reference Range is dependent on time and content of last meal. Glucose of more than 200 mg/dL in a nonstressed, ambulatory subject supports the diagnosis of Diabetes Mellitus. Performed By: #### G LULS ####Point of Care testing, No Panel InformationOrdered By: Chris Mccarthy on 11-17-2021 Large Platelets Slight [facility] Poikilocytosis Slight [facility] Basic Metabolic Panelon 11-05 Calcium [Mass/Vol] 8.0 mg/dL Low 8.2-10.2 [facility] Comment on above: Performed By: #### D IFF CBC, BMP ####[facility] [address] [place] [address] [place] Chloride [Moles/Vol] 108 mmol/L Normal 95-114 [facility] Comment on above: Performed By: #### D IFF CBC, BMP ####[facility] [address] [place] [address] [facility] CO2 [Moles/Vol] 19.0 mmol/L Low 22.0-30.0 [facility] Comment on above: Performed By: #### D IFF CBC, BMP ####[facility] [address] [place] [address] [facility] Creatinine [Mass/Vol] 3.31 mg/dL High 0.64-1.[address] [facility] Comment on above: Performed By: #### D IFF CBC, BMP ####[address] [place] [address] [facility] Creatinine Clr Calc Pharmacy 27.48 [facility] Comment on above: Result Comment: PERF ORMED BY:[address] [place], [place] [phone] MEDICAL DIRECTORCHRISTO PINO M.D. Performed By: #### D IFF CBC, BMP ####[address] [place] [address] [facility] Estimated GFR ( [address] 22 [facility] Comment on above: Result Comment: GFR estimated reference range: According to KDOQI guidelines, <60 ml/min/1.73m2 is sufficient to diagnose a patient with chronic kidney disease. Performed By: #### D IFF CBC, BMP ####[address] [place] [address] [facility] Estimated GFR (Non- Am 19 [facility] Comment on above: Performed By: #### D IFF CBC, BMP ####[address] [place] [address] [facility] Glucose [Mass/Vol] 67 mg/dL Low 70-100 [facility] Comment on above: Result Comment: [place] om Glucose Reference Range is dependent on time and content of last meal. Glucose of more than 200 mg/dL in a nonstressed, ambulatory subject supports the diagnosis of Diabetes Mellitus. ADA recommended reference range Performed By: #### D IFF CBC, BMP ####[address] [place] [address] [facility] Potassium [Moles/Vol] 4.5 mmol/L Normal 3.5-5.[address] [facility] Comment on above: Performed By: #### D IFF CBC, BMP ####[address] [place] [address] [facility] Sodium [Moles/Vol] 135 mmol/L Low 136-146 [facility] Comment on above: Performed By: #### D IFF CBC, BMP ####[facility] [address] [place] [address] [facility] Urea nitrogen [Mass/Vol] 40 mg/dL High 9- [facility] Comment on above: Performed By: #### D IFF CBC, BMP ####[facility] [address] [place] [address] [facility] Diff and CBCon 11-16-2021 Anisocytosis Ql (Bld) Moderate Normal [facility] Comment on above: Performed By: #### D IFF CBC, BMP ####[facility] [address] [place] [address] [facility] Band form neutrophils/100 WBC (Bld) 11 % High 0-5 [facility] Comment on above: Performed By: #### D IFF CBC, BMP ####[facility] [address] [place] [address] [facility] Basophils/100 WBC (Bld) 1 % Normal 0-2 [facility] Comment on above: Performed By: #### D IFF CBC, BMP ####[facility] [address] [place] [address] [facility] Erythrocyte distribution width (RBC) [Ratio] 18.5 % High 12.0-14.8 [facility] Comment on above: Performed By: #### D IFF CBC, BMP ####[facility] [address] [place] [address] [facility] Hematocrit (Bld) [Volume fraction] 25.9 % Low 38.8-50.0 [facility] Comment on above: Performed By: #### D IFF CBC, BMP ####[facility] [address] [place] [address] [facility] Hemoglobin (Bld) [Mass/Vol] 8.1 g/dL Low 13.0-17.0 [facility] Comment on above: Performed By: #### D IFF CBC, BMP ####[facility] [facility] [id number] [place] [address] [facility] Hypochromasia Slight Normal [facility] Comment on above: Performed By: #### D IFF CBC, BMP ####[address] [place] [address] [facility] Lymphocytes/100 WBC (Bld) 13 % Low 18-42 [facility] Comment on above: Performed By: #### D IFF CBC, BMP ####[address] [place] [address] [facility] MCH (RBC) [Entitic mass] 27.2 pg Low 27.5-35.2 [facility] Comment on above: Performed By: #### D IFF CBC, BMP ####[address] [place] [address] [facility] MCV (RBC) [Entitic vol] 86.6 fL Normal 83.5-101 [facility] Comment on above: Performed By: #### D IFF CBC, BMP ####[address] [address] [facility] Mean Corpuscular HGB Conc 31.4 g/dL Low 32.5-35.6 [facility] Comment on above: Performed By: #### D IFF CBC, BMP ####[address] [address] [facility] Monocytes/100 WBC (Bld) 6 % Normal 2-11 [facility] Comment on above: Performed By: #### D IFF CBC, BMP ####[address] [address] [facility] Nucleated RBC/100 WBC (Bld) [Ratio] 0.1 % Normal 0-0.5 [facility] Comment on above: Result Comment: PERF ORMED BY:[address] [place], [place] [phone] MEDICAL MOOSE PINO M.D. Performed By: #### D IFF CBC, BMP ####[address] [address] [facility] Platelet Estimate Normal Normal Normal [facility] Comment on above: Performed By: #### D IFF CBC, BMP ####[address] [address] [facility] Platelet mean volume (Bld) [Entitic vol] 9.6 fL Normal 6.6-10.1 [facility] Comment on above: Performed By: #### D IFF CBC, BMP ####[address] [place] [address] [facility] Platelet Morphology Normal Normal Normal [facility] Comment on above: Result Comment: PERF ORMED BY:[address] [place]Jeanette[place], [place] [phone] MEDICAL MOOSE PINO M.D. Performed By: #### D IFF CBC, BMP ####[address] [place] [address] [facility] Platelets (Bld) [#/Vol] 204 10*3/uL Normal 150-450 [facility] Comment on above: Performed By: #### D IFF CBC, BMP ####[address] [place] [address] [facility] RBC (Bld) [#/Vol] 2.99 10*6/uL Low 3.90-5.60 [facility] Comment on above: Performed By: #### D IFF CBC, BMP ####[address] [address] [facility] Segmented neutrophils/100 WBC (Bld) 69 % Normal 50-70 [facility] Comment on above: Performed By: #### D IFF CBC, BMP ####[address] [address] [facility] Target Cells Moderate Normal [facility] Comment on above: Performed By: #### D IFF CBC, BMP ####[address] [place] [address] [facility] WBC (Bld) [#/Vol] 25.8 10*3/uL High 4.5-11.0 [facility] Comment on above: Performed By: #### D IFF CBC, BMP ####[address] [place] [address] [facility] Glucose Poct Glucometerson 0 11-16-2021 Glucose [Mass/Vol] 102 mg/dL Normal [facility] Comment on above: Result Comment: [facility] Glucose Reference Range is dependent on time and content of last meal. Glucose of more than 200 mg/dL in a nonstressed, ambulatory subject supports the diagnosis of Diabetes Mellitus.PERFORMED BY:[address] [address] [place], [place] [phone] MEDICAL DIRECTORCHRISTO PINO M.D. Performed By: #### G LULS ####Point of Care testing, Commemt1 Glu2: Cleaned Meter [facility] Comment on above: Result Comment: PERF ORMED BY:[address] INFANTEJeanetteMIGUELANGELALACH[place], [place] [phone] MEDICAL DIRECTORCHRISTO PINO M.D. Performed By: #### G LULS ####Point of Care testing, Glucose [Mass/Vol] 104 mg/dL Normal [facility] Comment on above: Result Comment: [facility] Glucose Reference Range is dependent on time and content of last meal. Glucose of more than 200 mg/dL in a nonstressed, ambulatory subject supports the diagnosis of Diabetes Mellitus. Performed By: #### G LULS ####Point of Care testing, Commemt1 Glu2: Cleaned Meter [facility] Comment on above: Result Comment: PERF ORMED BY:[address] [address] [address] INFANTEJeanetteMIGUELANG[place], [place] [phone] MEDICAL DIRECTORCHRISTO PINO M.D. Performed By: #### G LULS ####Point of Care testing, Glucose [Mass/Vol] 143 mg/dL Normal [facility] Comment on above: Result Comment: [facility] Glucose Reference Range is dependent on time and content of last meal. Glucose of more than 200 mg/dL in a nonstressed, ambulatory subject supports the diagnosis of Diabetes Mellitus. Performed By: #### G LULS ####Point of Care testing, Commemt1 Glu2: Cleaned Meter [facility] Comment on above: Result Comment: PERF ORMED BY:[address] [address] [place], [place] [phone] MEDICAL DIRECTORCHRISTO PINO M.D. Performed By: #### G LULS ####Point of Care testing, Glucose [Mass/Vol] 70 mg/dL Normal [facility] Comment on above: Result Comment: [place] [facility] Glucose Reference Range is dependent on time and content of last meal. Glucose of more than 200 mg/dL in a nonstressed, ambulatory subject supports the diagnosis of Diabetes Mellitus. Performed By: #### G LULS ####Point of Care testing, Glucose [Mass/Vol] 129 mg/dL Normal [facility] Comment on above: Result Comment: [place] [facility] Glucose Reference Range is dependent on time and content of last meal. Glucose of more than 200 mg/dL in a nonstressed, ambulatory subject supports the diagnosis of Diabetes Mellitus. Performed By: #### G LULS ####Point of Care testing, Laboratory - Hematology and Cell countsOrdered By: Chris Mccarthy on 11-16-2021 Band form neutrophils/100 WBC (Bld) 11 % 0-5 [facility] Urine culture routineOrdered By: Ivan Springer on 11-16-2021 Bacteria identified Cx Nom (U) No Growth 2 Days [facility] Vancomycin,Randomon 11-17-19 22 Vancomycin,Random 13.8 ug/mL Normal 5.0-20.0 [facility] Comment on above: Order Comment: Date of last dose?: [id number] Time of last dose?: 1529 Result Comment: Last dose: -PERFORMED BY:[facility] [place] [place], [place] [phone] MEDICAL DIRECTORCHRISTO PINO M.D. Performed By: #### V ANCR ####[facility] [address] [place] [address] [place] A1C with Estimated Average G luon 11-15-2021 Glucose [Mass/Vol] 114 mg/dL Normal [facility] Comment on above: Result Comment: PERF ORMED BY:[address] [address] [place] [phone] MEDICAL DIRECTORCHRISTO PINO M.D. Performed By: #### A 1C [facility] eA ####[address] HbA1c (Bld) [Mass fraction] 5.6 % Normal 4.3-5.6 [facility] Comment on above: Result Comment: Incr eased risk for diabetes: 5.7 - 6.4 diabetes: >6.4 glycemic control for adults with diabetes: <7.0 Performed By: #### A 1C [facility] eA ####[address] Albumin [Mass/volume] in Ser um or PlasmaOrdered By: Olga Lidia Martin on 11-15-2021 Albumin [Mass/Vol] 2.3 g/dL 2.9-4.4 [facility] Albumin/Protein.total in 24 hour Urine by ElectrophoresisOrdered By: Olga Lidia Martin on 11-15-2021 Albumin Elph (24H U) [Mass fraction] 49.1 % . [facility] Basic Metabolic Panelon 11-05 Calcium [Mass/Vol] 7.8 mg/dL Low 8.2-10.2 [facility] Comment on above: Performed By: #### V [id number], BMP, DIFF CBC ####[address] Chloride [Moles/Vol] 111 mmol/L Normal 95-114 [facility] Comment on above: Performed By: #### V [id number], BMP, DIFF CBC ####[address] [place] [address] [facility] CO2 [Moles/Vol] 17.1 mmol/L Low 22.0-30.0 [facility] Comment on above: Performed By: #### V [id number], BMP, DIFF CBC ####[address] [place] [address] [facility] Creatinine [Mass/Vol] 3.28 mg/dL High 0.64-1.[address] [facility] Comment on above: Performed By: #### V [id number], BMP, DIFF CBC ####[address] [place] [address] [facility] Creatinine Clr Calc Pharmacy 27.57 [facility] Comment on above: Performed By: #### V [id number], BMP, DIFF CBC ####[facility] [address] [place] [address] [facility] Estimated GFR ( [address] 23 [facility] Comment on above: Result Comment: GFR estimated reference range: According to KDOQI guidelines, <60 ml/min/1.73m2 is sufficient to diagnose a patient with chronic kidney disease. Performed By: #### V [id number], BMP, DIFF CBC ####[address] [place] [address] [facility] Estimated GFR (Non- Am 19 [facility] Comment on above: Performed By: #### V [id number], BMP, DIFF CBC ####[address] [place] [address] [facility] Glucose [Mass/Vol] 122 mg/dL High 70-100 [facility] Comment on above: Result Comment: [place] Glucose Reference Range is dependent on time and content of last meal. Glucose of more than 200 mg/dL in a nonstressed, ambulatory subject supports the diagnosis of Diabetes Mellitus. ADA recommended reference range Performed By: #### V [id number], BMP, DIFF CBC ####[address] [place] [address] [facility] Potassium [Moles/Vol] 5.0 mmol/L Normal 3.5-5.[address] [facility] Comment on above: Performed By: #### V [id number], BMP, DIFF CBC ####[address] [place] [address] [facility] Sodium [Moles/Vol] 135 mmol/L Low 136-146 [facility] Comment on above: Performed By: #### V [id number], BMP, DIFF CBC ####[address] [place] [address] [facility] Urea nitrogen [Mass/Vol] 34 mg/dL High 9-23 [facility] Comment on above: Performed By: #### V [id number], BMP, DIFF CBC ####[facility] [id number] Blood polychromasia detectio n by light microscopyOrdered By: Chris Mccarthy on 11-15-2021 Polychromasia LM Ql (Bld) Slight [facility] CT abdomen pelvis wo conon 0 11-15-2021 CT abdomen pelvis wo con Normal [facility] CT biopsyOrdered By: Olga Lidia Obrien adir on 11-15-2021 Transferrin [Mass/Vol] 189 mg/dL 180-380 [facility] Diff and CBCon 11-15-2021 Anisocytosis Ql (Bld) Moderate Normal [facility] Comment on above: Performed By: #### V [id number], BMP, DIFF CBC ####[facility] [id number] Band form neutrophils/100 WBC (Bld) 27 % High 0-5 [facility] Comment on above: Performed By: #### V [id number], BMP, DIFF CBC ####[address] Erythrocyte distribution width (RBC) [Ratio] 18.3 % High 12.0-14.8 [facility] Comment on above: Performed By: #### V [id number], BMP, DIFF CBC ####[address] Hematocrit (Bld) [Volume fraction] 26.9 % Low 38.8-50.0 [facility] Comment on above: Performed By: #### V [id number], BMP, DIFF CBC ####[facility] [address] [place], [place] [address] [facility] Hemoglobin (Bld) [Mass/Vol] 8.1 g/dL Low 13.0-17.0 [facility] Comment on above: Performed By: #### V [id number], BMP, DIFF CBC ####[address] [place] [address] [facility] Hypochromasia Slight Normal [facility] Comment on above: Performed By: #### V [id number], BMP, DIFF CBC ####[address] Large Platelets Slight Normal [facility] Comment on above: Result Comment: PERF ORMED BY:[address] [place], [place] [phone] MEDICAL DIRECTORCHRISTO PINO M.D. Performed By: #### V [id number], BMP, DIFF CBC ####[address] Lymphocytes/100 WBC (Bld) 7 % Low 18-42 [facility] Comment on above: Performed By: #### V [id number], BMP, DIFF CBC ####[address] MCH (RBC) [Entitic mass] 26.4 pg Low 27.5-35.2 [facility] Comment on above: Performed By: #### V EIF78OI, BMP, DIFF CBC ####[address] MCV (RBC) [Entitic vol] 87.5 fL Normal 83.5-101 [facility] Comment on above: Performed By: #### V [id number], BMP, DIFF CBC ####[address] Mean Corpuscular HGB Conc 30.2 g/dL Low 32.5-35.6 [facility] Comment on above: Performed By: #### V [id number], BMP, DIFF CBC ####[address] Metamyelocytes 1 % High 0-0 [facility] Comment on above: Performed By: #### V [id number], BMP, DIFF CBC ####[address] Monocytes/100 WBC (Bld) 3 % Normal 2-11 [facility] Comment on above: Performed By: #### V [id number], BMP, DIFF CBC ####[address] Nucleated RBC/100 WBC (Bld) [Ratio] 0.1 % Normal 0-0.5 [facility] Comment on above: Result Comment: PERF ORMED BY:[address] [place], [place] [phone] MEDICAL DIRECTORCHRISTO PINO M.D. Performed By: #### V SAF98AS, BMP, DIFF CBC ####[address] Platelet Estimate Normal Normal Normal [facility] Comment on above: Performed By: #### V [id number], BMP, DIFF CBC ####[address] Platelet mean volume (Bld) [Entitic vol] 10.4 fL High 6.6-10.1 [facility] Comment on above: Performed By: #### V [id number], BMP, DIFF CBC ####[address] Platelets (Bld) [#/Vol] 238 10*3/uL Normal 150-450 [facility] Comment on above: Performed By: #### V [id number], BMP, DIFF CBC ####[address] Polychromasia Slight Normal [facility] Comment on above: Performed By: #### V [id number], BMP, DIFF CBC ####[address] RBC (Bld) [#/Vol] 3.08 10*6/uL Low 3.90-5.60 [facility] Comment on above: Performed By: #### V [id number], BMP, DIFF CBC ####[address] Schistocytes Slight Normal [facility] Comment on above: Performed By: #### V PTQ86BY, BMP, DIFF CBC ####[address] Segmented neutrophils/100 WBC (Bld) 62 % Normal 50-70 [facility] Comment on above: Performed By: #### V [id number], BMP, DIFF CBC ####[facility] Target Cells Moderate Normal [facility] Comment on above: Performed By: #### V [id number], BMP, DIFF CBC ####[address] [place] [address] [facility] WBC (Bld) [#/Vol] 30.1 10*3/uL High 4.5-11.0 [facility] Comment on above: Performed By: #### V [id number], BMP, DIFF CBC ####[address] [place] [address] [facility] Ferritinon 11-15-2021 Ferritin [Mass/Vol] 68.6 ng/mL Normal 23.9-336.2 [facility] Comment on above: Performed By: #### S PE, KAPPA, ROSALEE SERUM ####[facility] ,#### FE and TIBC, [id number], OKSANA ####[place] [id number] [facility] Ferritin [Mass/volume] in Se rum or PlasmaOrdered By: Olga Lidia Martin on 11-15-2021 Ferritin [Mass/Vol] 68.6 ng/mL 23.9-336.2 [facility] Folate [Mass/volume] in Seru m or PlasmaOrdered By: Olga Lidia Martin on 11-15-2021 Folate [Mass/Vol] 6.8 ng/mL >5.9 [facility] Comment on above: Folate reference ran ge: >5.9 ng/ml The WHO technical consultation on folate and vitamin b12 deficiencies has determined that folate concentrations less than 4 ng/ml are considered deficient. Folate reference ran ge: >5.9 ng/mlThe WHO technical consultation on folate and vitamin [id number] has determined that folate concentrations lessthan 4 ng/ml are considered deficient. Free K+L LT Chains, Qn, Son 11-15-2021 Free [place] Light Chains, S 229.3 mg/L High 3.3-19.4 [facility] Comment on above: Performed By: #### S PE, KAPPA, ROSALEE SERUM ####[facility] ,#### FE and TIBC, [id number], OKSANA ####[place] [address] Free [place] Light Chains, S 163.5 mg/L High 5.7-26.3 [facility] Comment on above: Performed By: #### S PE, KAPPA, ROSALEE SERUM ####[facility] ,#### FE and TIBC, [id number], OKSANA ####[address] [place] [address] [facility] [place]/Lambda Ratio, S 1.40 Normal 0.26-1.[address] [facility] Comment on above: Result Comment: Perf ormed at: - [facility] [address] [id number] Refuse Laborer: Colton Lane PhD, Phone: [phone] BY:[address] [address] [address], [place] [phone] MEDICAL DIRECTORCHRISTO PINO M.D. Performed By: #### S PE, KAPPA, ROSALEE SERUM ####[facility] ,#### FE and TIBC, [id number], OKSANA ####[address] Gamma globulin/Protein.total in 24 hour Urine by ElectrophoresisOrdered By: Olga Lidia Martin on 11-15-2021 Gamma globulin Elph (24H U) [Mass fraction] 24.0 % . [facility] Glucose Poct Glucometerson 0 11-15-2021 Glucose [Mass/Vol] 148 mg/dL Normal [facility] Comment on above: Result Comment: [place] Glucose Reference Range is dependent on time and content of last meal. Glucose of more than 200 mg/dL in a nonstressed, ambulatory subject supports the diagnosis of Diabetes Mellitus.PERFORMED BY:[place] [address] [phone] MEDICAL DIRECTORCHRISTO PINO M.D. Performed By: #### G LULS ####Point of Care testing, Commemt1 Glu2: Cleaned Meter Normal [facility] Comment on above: Result Comment: PERF ORMED BY:[facility] [place], [place] [phone] MEDICAL DIRECTORCHRISTO PINO M.D. Performed By: #### G LULS ####Point of Care testing, Glucose [Mass/Vol] 133 mg/dL Normal [facility] Comment on above: Result Comment: [place] om Glucose Reference Range is dependent on time and content of last meal. Glucose of more than 200 mg/dL in a nonstressed, ambulatory subject supports the diagnosis of Diabetes Mellitus. Performed By: #### G LULS ####Point of Care testing, Glucose [Mass/Vol] 141 mg/dL Normal [facility] Comment on above: Result Comment: [place] om Glucose Reference Range is dependent on time and content of last meal. Glucose of more than 200 mg/dL in a nonstressed, ambulatory subject supports the diagnosis of Diabetes Mellitus. Performed By: #### G LULS ####Point of Care testing, Glucose mean value [Mass/vol ume] in Blood Estimated from glycated hemoglobinOrdered By: Chris Mccarthy on 11-15-2021 Average glucose Estimated from glycated hemoglobin (Bld) [Mass/Vol] 114 mg/dL [facility] Hemoglobin A1c percentageOrd ered By: Chris Mccarthy on 11-15-2021 HbA1c (Bld) [Mass fraction] 5.6 % 4.3-5.6 [facility] Comment on above: Increased risk for d iabetes: 5.7 - 6.4 diabetes: >6.4 glycemic control for adults with diabetes: <7.0 Increased risk for d iabetes: 5.7 - 6.4diabetes: >6.4glycemic control for adults with diabetes: <7.0 IgA [Mass/volume] in Serum o r PlasmaOrdered By: Olga Lidia Martin on 11-15-2021 IgA [Mass/Vol] 698 mg/dL 61-437 [facility] IgG [Mass/volume] in Serum o r PlasmaOrdered By: Olga Lidia Martin on 11-15-2021 IgG [Mass/Vol] 2509 mg/dL 603-1613 [facility] IgM [Mass/volume] in Serum o r PlasmaOrdered By: Olga Lidia Martin on 11-15-2021 IgM [Mass/Vol] 87 mg/dL 15-143 [facility] Comment on above: Performed at: [employer] [place] [address] Refuse Laborer: Colton Lane PhD, Phone: [phone] Performed at: [employer] [facility] [address] [id number] Director: Colton Lane PhD, Phone: [phone] Immunofixation for UrineOrde red By: Olga Lidia Martin on 11-15-2021 Interpretation Immunofixation (U) [Interp] See comment . [facility] Comment on above: No monoclonality det ected. Performed at: [facility] [address] [id number] Refuse Laborer: Colton Lane PhD, Phone: [phone] No monoclonality det ected.Performed at: [facility] [address] [id number] Director: Colton Lane PhD, Phone: [phone] Immunofixation, (ROSALEE), Urine on 11-15-2021 Immunofixation, (ROSALEE), Urine Normal . [facility] Comment on above: Result Comment: No m onoclonality detected. Performed at: [facility] [place] [address] Refuse Laborer: Colton Lane PhD, Phone: [phone] Performed By: #### U PE RAND, ROSALEE,URINE ####[facility] , Immunofixation,Serumon 11-15 Immunofixation, Serum Normal . [facility] Comment on above: Result Comment: No m onoclonality detected. Performed By: #### S PE, KAPPA, ROSALEE SERUM ####[facility] ,#### FE and TIBC, [id number], OKSANA ####[address] [place] [address] [facility] Immunoglobulin A, Serum 698 mg/dL High 61-437 [facility] Comment on above: Performed By: #### S PE, KAPPA, ROSALEE SERUM ####[facility] ,#### FE and TIBC, [id number], OKSANA ####[address] [address] [facility] Immunoglobulin G 2509 mg/dL High 603-1613 [facility] Comment on above: Performed By: #### S PE, KAPPA, ROSALEE SERUM ####[facility] ,#### FE and TIBC, [id number], OKSANA ####[place] [id number] [facility] Immunoglobulin M, Serum 87 mg/dL Normal 15-143 [facility] Comment on above: Result Comment: Perf ormed at: - [facility] [place] [id number] Refuse Laborer: Colton Lane PhD, Phone: [phone] Performed By: #### S PE, KAPPA, ROSALEE SERUM ####[facility] ,#### FE and TIBC, [id number], OKSANA ####[place] [address] [facility] Immunoglobulin light chains. kappa.free [Mass/volume] in SerumOrdered By: Olga Lidia Amrio on 11-15-2021 Immunoglobulin light chains.kappa.free (S) [Mass/Vol] 229.3 mg/L 3.3-19.4 [facility] Immunoglobulin light chains. kappa.free/Immunoglobulin light chains.lambda.free [MassOrdered By: Olga Lidia Mario on 11-15-2021 Immunoglobulin light chains.kappa.free/Immun oglobulin light chains.lambda.free (S) [Mass ratio] 1.40 0.26-1.65 [facility] Comment on above: Performed at: [facility] [address] [place], [place] [id number] Refuse Laborer: Colton Lane PhD, Phone: [phone] Performed at: [facility] [email or web address] [id number] [place], [place] [id number] Director: Colton Lane PhD, Phone: [phone] Immunoglobulin light chains. lambda.free [Mass/volume] in Serum or PlasmaOrdered By: Olga Lidia Martin on 11-15-2021 Immunoglobulin light chains.lambda.free [Mass/Vol] 163.5 mg/L 5.7-26.3 [facility] Iron [Mass/volume] in Serum or PlasmaOrdered By: Olga Lidia Martin on 11-15-2021 Iron [Mass/Vol] 9 ug/dL 40-160 [facility] Iron and TIBC Profileon 11-05 % Iron Saturation 3.0 % Low 20-50 [facility] Comment on above: Performed By: #### S PE, KAPPA, ROSALEE SERUM ####[facility] ,#### FE and TIBC, [id number], OKSANA ####[place] [id number] [facility] Iron [Mass/Vol] 9 ug/dL Low 40-160 [facility] Comment on above: Performed By: #### S PE, KAPPA, ROSALEE SERUM ####[facility] ,#### FE and TIBC, [id number], OKSANA ####[address] [address] [facility] Total Iron Binding Capacity 265 ug/dL Normal 255-450 [facility] Comment on above: Performed By: #### S PE, KAPPA, ROSALEE SERUM ####[facility] ,#### FE and TIBC, [id number], OKSANA ####[place] [id number] [place] Transferrin [Mass/Vol] 189 mg/dL Normal 180-380 [facility] Comment on above: Performed By: #### S PE, KAPPA, ROSALEE SERUM ####[facility] ,#### FE and TIBC, [id number], OKSANA ####[facility] [id number] Iron binding capacity [Mass/ volume] in Serum or PlasmaOrdered By: Olga Lidia Mario on 11-15-2021 Iron binding capacity [Mass/Vol] 265 ug/dL 255-450 [facility] Iron saturation [Mass Fracti on] in Serum or PlasmaOrdered By: Olga Lidia Mario on 11-15-2021 Iron saturation [Mass fraction] 3.0 % 20-50 [facility] Laboratory - Chemistry and C hemistry - challengeOrdered By: Olga Lidia Martin on 11-15-2021 Cobalamin (Vitamin B12) [Mass/Vol] 825 pg/mL 180-914 [facility] MR foot RT wo conon 11-16-19 22 MR foot RT wo con Normal [facility] Metamyelocytes/100 WBC Manua l cnt (Bld)Ordered By: Chris Mccarthy on 11-15-2021 Metamyelocytes/100 WBC (Bld) 1 % 0-0 [facility] No Panel InformationOrdered By: Olga Lidia aMrtin on 11-15-2021 Urine Random Prot Electrophor Note See comment . [facility] Comment on above: Protein electrophore sis scan will follow via computer, mail, or venereal disease control head delivery. Performed at: [address] [id number] Refuse Laborer: Colton Lane PhD, Phone: [phone] Protein electrophore sis scan will follow via computer,mail, or venereal disease control head delivery.Performed at: [address] [id number] Director: Colton Lane PhD, Phone: [phone] Protein Electrophoresis M-Alvarez Not observed g/dL Not Observed [facility] Protein Electrophoresis Note See comment . [facility] Comment on above: Protein electrophore sis scan will follow via computer, mail, or venereal disease control head delivery. Performed at: - [facility] [address] [place], [place] [id number] Refuse Laborer: Colton Lane PhD, Phone: [phone] Protein electrophore sis scan will follow via computer,mail, or venereal disease control head delivery.Performed at: [facility] fsboWOWP[facility] CenterEberqa[address] [place], [place] [id number] Director: Colton Lane PhD, Phone: [phone] Serum Immunofixation See comment . [facility] Comment on above: No monoclonality det ected. No Panel InformationOrdered By: Chris Mccarthy on 11-15-2021 25-Hydroxy Vitamin D Total 12.2 ng/mL 30-100 [facility] Comment on above: VITAMIN D STATUS 25( [place])VITAMIN D RANGE (ng/mL) Deficient <20 Insufficient 20 to <30 Sufficient 30 to 100 Reference: Waylon NGUYEN,Xavier SUMNER, [place] RIOS, et al. Evaluation,treatment, and prevention of vitamin D deficiency; an Endocrine Society clinical practice guideline. JCEM. 2010; 96(7):1911-30. VITAMIN D STATUS 25( [place])VITAMIN D RANGE (ng/mL) Deficient <20 Insufficient 20 to <30Sufficient 30 to 100Reference: Xavier Hunt, [place] RIOS, et al. Evaluation,treatment, and prevention of vitamin D deficiency; an Endocrine Society clinical practice guideline. JCEM. 2010; 96(7):1911-30. Protein Electro, Random Urin dain 11-15-2021 Albumin, Urine 49.1 % Normal . [facility] Comment on above: Performed By: #### U PE RAND, ROSALEE,URINE ####[facility] , Xapxv-1-Vjivbfxb, Urine 7.1 % Normal . [facility] Comment on above: Performed By: #### U PE RAND, ROSALEE,URINE ####[facility] , Aoqmy-9-Nvmuftcc, Urine 7.2 % Normal . [facility] Comment on above: Performed By: #### U PE RAND, ROSALEE,URINE ####[facility] , Beta Globulin, Urine 12.6 % Normal . [facility] Comment on above: Performed By: #### U PE RAND, ROSALEE,URINE ####[facility] , Gamma Globulin, Urine 24.0 % Normal . [facility] Comment on above: Performed By: #### U PE RAND, ROSALEE,URINE ####[facility] , M-Alvarez % Not Observed Normal Not Observed [facility] Comment on above: Performed By: #### U PE RAND, ROSALEE,URINE ####[facility] , Please Note: Normal . [facility] Comment on above: Result Comment: Prot ein electrophoresis scan will follow via computer, mail, or venereal disease control head delivery. Performed at: [address] [id number] Refuse Laborer: Colton Lane PhD, Phone: [phone] BY:[facility] [place], [place] [phone] MEDICAL DIRECTORCHRISTO PINO M.D. Performed By: #### U PE RAND, ROSALEE,URINE ####[facility] , Protein (U) [Mass/Vol] 170.8 mg/dL Normal Not Estab. [facility] Comment on above: Performed By: #### U PE RAND, ROSALEE,URINE ####[facility] , Protein Electrophoresis, Ser umon 11-15-2021 Albumin [Mass/Vol] 2.3 g/dL Low 2.9-4.4 [facility] Comment on above: Performed By: #### S PE, KAPPA, ROSALEE SERUM ####[facility] ,#### FE and TIBC, [id number], OKSANA ####[facility] Albumin/Globulin [Mass ratio] 0.5 {ratio} Low 0.7-1.7 [facility] Comment on above: Performed By: #### S PE, KAPPA, ROSALEE SERUM ####[facility] ,#### FE and TIBC, [id number], OKSANA ####[address] Yshar-1-Bwdofdfj 0.3 g/dL Normal 0.0-0.4 [facility] Comment on above: Performed By: #### S PE, KAPPA, ROSALEE SERUM ####[facility] ,#### FE and TIBC, [id number], OKSANA ####[address] Hwjhy-4-Cjslmlts 0.8 g/dL Normal 0.4-1.0 [facility] Comment on above: Performed By: #### S PE, KAPPA, ROSALEE SERUM ####[facility] ,#### FE and TIBC, [id number], OKSANA ####[address] Beta Globulin 1.1 g/dL Normal 0.7-1.3 [facility] Comment on above: Performed By: #### S PE, KAPPA, ROSALEE SERUM ####[facility] ,#### FE and TIBC, [id number], OKSANA ####[address] Gamma Globulin 2.5 g/dL High 0.4-1.8 [facility] Comment on above: Performed By: #### S PE, KAPPA, ROSALEE SERUM ####[facility] ,#### FE and TIBC, [id number], OKSANA ####[place] [address] [place] Globulin (S) [Mass/Vol] 4.8 g/dL High 2.2-3.9 [facility] Comment on above: Performed By: #### S PE, KAPPA, ROSALEE SERUM ####[facility] ,#### FE and TIBC, [id number], OKSANA ####[address] M-Alvarez Not Observed Normal Not Observed [facility] Comment on above: Performed By: #### S PE, KAPPA, ROSALEE SERUM ####[facility] ,#### FE and TIBC, [id number], OKSANA ####[address] Protein [Mass/Vol] 7.1 g/dL Normal 6.0-8.5 [facility] Comment on above: Performed By: #### S PE, KAPPA, ROSALEE SERUM ####[facility] ,#### FE and TIBC, [id number], OKSANA ####[address] SPE-Note Normal . [facility] Comment on above: Result Comment: Prot ein electrophoresis scan will follow via computer, mail, or venereal disease control head delivery. Performed at: [place] [id number] Refuse Laborer: Colton Lane PhD, Phone: [phone] Performed By: #### S PE, KAPPA, ROSALEE SERUM ####[facility] ,#### FE and TIBC, [id number], OKSANA ####[address] Protein [Mass/volume] in Ser um or PlasmaOrdered By: Olga Lidia Mario on 11-15-2021 Protein [Mass/Vol] 7.1 g/dL 6.0-8.5 [facility] Protein [Mass/volume] in Uri neOrdered By: Olga Lidia Mario on 11-15-2021 Protein (U) [Mass/Vol] 170.8 mg/dL Not Estab. [facility] Protein.monoclonal/Protein.t otal in 24 hour Urine by ElectrophoresisOrdered By: Olga Lidia Oteror on 11-15-2021 Protein.monoclonal Elph (24H U) [Mass fraction] Not observed % Not Observed [facility] Serum globulin measurement ( mass/volume)Ordered By: Olga Lidia Martin on 11-15-2021 Globulin (S) [Mass/Vol] 4.8 g/dL 2.2-3.9 [facility] Serum or plasma albumin/glob ulin mass ratioOrdered By: Olga Lidia Martin on 11-15-2021 Albumin/Globulin [Mass ratio] 0.5 {ratio} 0.7-1.7 [facility] Serum or plasma alpha 1 glob ulin measurement by electrophoresis (mass/volume)Ordered By: Olga Lidia Martin on 11-15-2021 Alpha 1 globulin Elph [Mass/Vol] 0.3 g/dL 0.0-0.4 [facility] Serum or plasma alpha 2 glob ulin measurement by electrophoresis (mass/volume)Ordered By: Olga Lidia Martin on 11-15-2021 Alpha 2 globulin Elph [Mass/Vol] 0.8 g/dL 0.4-1.0 [facility] Serum or plasma beta globuli n measurement by electrophoresis (mass/volume)Ordered By: Olga Lidia Martin on 11-15-2021 Beta globulin Elph [Mass/Vol] 1.1 g/dL 0.7-1.3 [facility] Serum or plasma gamma globul in measurement by electrophoresis (mass/volume)Ordered By: Olga Lidia Martin on 11-15-2021 Gamma globulin Elph [Mass/Vol] 2.5 g/dL 0.4-1.8 [facility] Type and Screenon 11-15-2021 ABO and Rh group Nom (Bld) Blood group O Rh(D) positive Normal [facility] Urine alpha 1 globulin/total protein by electrophoresisOrdered By: Olga Lidia Martin on 11-15-2021 Alpha 1 globulin Elph (U) [Mass fraction] 7.1 % . [facility] Urine alpha 2 globulin/total protein ratio by electrophoresisOrdered By: Olga Lidia Martin on 11-15-2021 Alpha 2 globulin Elph (U) [Mass fraction] 7.2 % . [facility] Urine beta globulin measurem ent by electrophoresis (mass/volume)Ordered By: Olga Lidia Martin on 11-15-2021 Beta globulin Elph (U) [Mass/Vol] 12.6 % . [facility] Vit. B12/Folate Profileon Cobalamin (Vitamin B12) [Mass/Vol] 825 pg/mL Normal 180-914 [facility] Comment on above: Performed By: #### S PE, KAPPA, ROSALEE SERUM ####[facility] ,#### FE and TIBC, [id number], OKSANA ####[address] Folate 6.8 ng/mL Normal >5.9 [facility] Comment on above: Result Comment: Yessenia te reference range: >5.9 ng/ml The WHO technical consultation on folate and vitamin b12 deficiencies has determined that folate concentrations less than 4 ng/ml are considered deficient.PERFORMED BY:[place] [address] [address] [place], [place] [phone] MEDICAL DIRECTORCHRISTO PINO M.D. Performed By: #### S PE, KAPPA, ROSALEE SERUM ####[facility] ,#### FE and TIBC, [id number], OKSANA ####[address] Vitamin D 25 Hydroxy Totalon 11-15-2021 Vitamin D 25 Hydroxy Total 12.2 ng/mL Low 30-100 [facility] Comment on above: Result Comment: RENÉE MIN D STATUS 25([place])VITAMIN D RANGE (ng/mL) Deficient <20 Insufficient 20 to <30 Sufficient 30 to 100 Reference: Waylon MF,Xavier NC, Susan-Jairo RIOS, et al. Evaluation,treatment, and prevention of vitamin D deficiency; an Endocrine Society clinical practice guideline. JCEM. 2010; 96(7):1911-30.PERFORMED BY:[place] [address] [address] [place], [place] [phone] MEDICAL DIRECTORCHRISTO PINO M.D. Performed By: #### V [id number], BMP, DIFF CBC ####[facility] [place] [address] [facility] Albumin [Mass/volume] in Ser um or PlasmaOrdered By: Ivan Springer on 11-14-2021 Albumin [Mass/Vol] 2.4 g/dL Low 3.2-5.5 [facility] Comment on above: Performed By: #### C UBLD, LACTIC, CBC, PTT, CMP, DIFF CBC, PT ####[place] [address] [place] [id number] [facility] Automated erythrocytes count in urine sediment (number/area)Ordered By: Ivan Springer on 11-14-2021 RBC Auto (Urine sed) [#/Area] 3-4 [HPF] 0-4 [facility] Automated leukocytes count i n urine sediment (number/area)Ordered By: Ivan Springer on 11-14-2021 WBC Auto (Urine sed) [#/Area] 1-2 [HPF] 0-4 [facility] Basic Metabolic Panelon 11-05 Calcium [Mass/Vol] 8.1 mg/dL Low 8.2-10.2 [facility] Comment on above: Performed By: #### B MP ####[address] [address] [facility] Chloride [Moles/Vol] 108 mmol/L Normal 95-114 [facility] Comment on above: Performed By: #### B MP ####[place] [id number] [facility] CO2 [Moles/Vol] 17.2 mmol/L Low 22.0-30.0 [facility] Comment on above: Performed By: #### B MP ####[address] [address] [facility] Creatinine [Mass/Vol] 3.51 mg/dL High 0.64-1.[address] [facility] Comment on above: Performed By: #### B MP ####[address] [address] [facility] Creatinine Clr Calc Pharmacy 25.76 Normal [facility] Comment on above: Result Comment: PERF ORMED BY:[place] [address] [address] [place], [place] [phone] MEDICAL DIRECTORCHRISTO PINO M.D. Performed By: #### B MP ####[place] [id number] [facility] Estimated GFR ( Cristo 21 [facility] Comment on above: Result Comment: GFR estimated reference range: According to KDOQI guidelines, <60 ml/min/1.73m2 is sufficient to diagnose a patient with chronic kidney disease. Performed By: #### B MP ####[place] [id number] [facility] Performed By: #### C UBLD, LACTIC, CBC, PTT, CMP, DIFF CBC, PT ####[place] [id number] [facility] Estimated GFR (Non- Am 17 [facility] Comment on above: Performed By: #### B MP ####[place] [id number] [facility] Glucose [Mass/Vol] 108 mg/dL High 70-100 [facility] Comment on above: Result Comment: [place] om Glucose Reference Range is dependent on time and content of last meal. Glucose of more than 200 mg/dL in a nonstressed, ambulatory subject supports the diagnosis of Diabetes Mellitus. ADA recommended reference range Performed By: #### B MP ####[place] [id number] [facility] Potassium [Moles/Vol] 5.6 mmol/L High 3.5-5.[address] [facility] Comment on above: Performed By: #### B MP ####[address] [address] [facility] Sodium [Moles/Vol] 135 mmol/L Low 136-146 [facility] Comment on above: Performed By: #### B MP ####[place] [id number] [facility] Urea nitrogen [Mass/Vol] 34 mg/dL High 9-23 [facility] Comment on above: Performed By: #### B MP ####[facility] [place] [address] [facility] Performed By: #### C UBLD, LACTIC, CBC, PTT, CMP, DIFF CBC, PT ####[place] [address] Bilirubin Test strip Ql (U)O rdered By: Ivan Springer on 11-14-2021 Bilirubin Ql (U) Negative Negative [facility] Blood Cultureon 11-14-2021 Bacteria identified Cx Nom (Bld) NO GROWTH 5 DAYS PERFORMED BY: [facility] [address] [place] [address] PATHOLOGIST MEDICAL TERMINOLOGIST CHRISTO PINO M.D. [facility] Comment on above: Performed By: #### C UBLD, LACTIC, CBC, PTT, CMP, DIFF CBC, PT ####[place] [address] [place] [id number] [facility] COVID-19 Antigenon 2 COVID-19 Antigen Normal [facility] Comment on above: Performed By: #### S OFIANEG, COVID-19 LEENA ####[place] [address] COVID-19 FRMCon 11-14-2021 SARS-CoV-2 (COVID-19) RNA JAYMIE+probe Ql (Unsp spec) Positive Critically abnormal Negative [facility] Comment on above: Order Comment: Healt hcare Worker?: N Result Comment: Posi tive results will only be called to Providers for the following groups of patients: Pre-Surgical Testing, Emergency Room, and Inpatients. Results called at 2141 on 11/14/21 Testing for SARS-CoV-2 by RT-PCR This test was developed and its performance characteristics determined by [employer]) and validated at the [facility]. This test has not been FDA cleared or approved. This test has been authorized by FDA under an Emergency Use Authorization (EUA). This test has been validated in accordance with the FDA's Guidance Document (Policy for Diagnostics Testing in Laboratories Certified to Perform High Complexity Testing under CLIA prior to Emergency Use Authorization for Coronavirus Disease-2019 during the Public Health Emergency) issued on July 08, 2019. This test is only authorized for the duration of time the declaration that circumstances exist justifying the authorization of the emergency use of in vitro diagnostic tests for detection of SARS-CoV-2 virus and/or diagnosis of COVID-19 infection under section 564(b)(1) of the Act, 21 U.S.C. 360bbb-3(b)(1), unless the authorization is terminated or revoked sooner.PERFORMED BY:[facility] [place], [place] [phone] MEDICAL DIRECTORCHRISTO PINO M.D. Performed By: #### C OVID 19 [facility] ####[facility] [place] [address] [facility] COVID-19 Positive/NegativeOr dered By: Ivan Springer on 11-14-2021 SARS-CoV-2 (COVID-19) N gene JAYMIE+probe Ql (Resp) Positive Negative [facility] Comment on above: Positive results odalys l only be called to Providers for the following groups of patients: Pre-Surgical Testing, Emergency Room, and Inpatients. Results called at 2141 on 11/14/21 Testing for SARS-CoV-2 by RT-PCR This test was developed and its performance characteristics determined by [employer] ([employer]) and validated at the [facility]. This test has not been FDA cleared or approved. This test has been authorized by FDA under an Emergency Use Authorization (EUA). This test has been validated in accordance with the FDA's Guidance Document (Policy for Diagnostics Testing in Laboratories Certified to Perform High Complexity Testing under CLIA prior to Emergency Use Authorization for Coronavirus Disease-2019 during the Public Health Emergency) issued on July 08, 2019. This test is only authorized for the duration of time the declaration that circumstances exist justifying the authorization of the emergency use of in vitro diagnostic tests for detection of SARS-CoV-2 virus and/or diagnosis of COVID-19 infection under section 564(b)(1) of the Act, 21 U.S.C. 360bbb-3(b)(1), unless the authorization is terminated or revoked sooner. Positive results odalys l only be called to Providers for the following groups of patients: Pre-Surgical Testing, Emergency Room, and Inpatients.Results calledat 214 on 11/14/21 Testing for SARS-CoV-2 by RT-PCRThis test was developed and its performance characteristics determined by [employer] ([employer]) and validated at the [facility]. This test has not been FDA cleared or approved. This test has been authorized by FDA under an Emergency Use Authorization (EUA). This test has been validated in accordance with the FDA's Guidance Document (Policy for Diagnostics Testing in Laboratories Certified to Perform High Complexity Testing under CLIA prior to Emergency Use Authorization for Coronavirus Disease-2019 during the Public Health Emergency) issued on July 08, 2019. This test is only authorized for the duration of time the declaration that circumstances exist justifying the authorization of the emergency use of in vitro diagnostic tests for detection of SARS-CoV-2 virus and/or diagnosis of COVID-19 infection under section 564(b)(1) of the Act, 21 U.S.C. 360bbb-3(b)(1), unless the authorization is terminated or revoked sooner. COVID-19 SOFIAOrdered By: Yang Springer on 11-14-2021 SARS-CoV+SARS-CoV-2 (COVID-19) Ag IA.rapid Ql (Resp) Negative Negative [facility] Comment on above: This is a duplicate Leena SARS Antigen (KATHLEEN) result to be used for statistical tracking purpose only. Color Auto (U)Ordered By: Yang Springer on 11-14-2021 Color (U) Yellow Yellow [facility] Complete Blood Count Auto Di ffon 11-14-2021 Erythrocyte distribution width (RBC) [Ratio] 18.3 % High 12.0-14.8 [facility] Comment on above: Performed By: #### C UBLD, LACTIC, CBC, PTT, CMP, DIFF CBC, PT ####[facility] [place] [address] [facility] Hematocrit (Bld) [Volume fraction] 27.9 % Low 38.8-50.0 [facility] Comment on above: Performed By: #### C UBLD, LACTIC, CBC, PTT, CMP, DIFF CBC, PT ####[facility] [address] Hemoglobin (Bld) [Mass/Vol] 8.7 g/dL Low 13.0-17.0 [facility] Comment on above: Performed By: #### C UBLD, LACTIC, CBC, PTT, CMP, DIFF CBC, PT ####[address] MCH (RBC) [Entitic mass] 27.4 pg Low 27.5-35.2 [facility] Comment on above: Performed By: #### C UBLD, LACTIC, CBC, PTT, CMP, DIFF CBC, PT ####[address] MCV (RBC) [Entitic vol] 87.6 fL Normal 83.5-101 [facility] Comment on above: Performed By: #### C UBLD, LACTIC, CBC, PTT, CMP, DIFF CBC, PT ####[address] Mean Corpuscular HGB Conc 31.3 g/dL Low 32.5-35.6 [facility] Comment on above: Performed By: #### C UBLD, LACTIC, CBC, PTT, CMP, DIFF CBC, PT ####[address] Nucleated RBC/100 WBC (Bld) [Ratio] 0.1 % Normal 0-0.5 [facility] Comment on above: Result Comment: PERF ORMED BY:[address] [place], [place] [phone] MEDICAL DIRECTORCHRISTO PINO M.D. Performed By: #### C UBLD, LACTIC, CBC, PTT, CMP, DIFF CBC, PT ####[address] Platelet mean volume (Bld) [Entitic vol] 10.0 fL Normal 6.6-10.1 [facility] Comment on above: Performed By: #### C UBLD, LACTIC, CBC, PTT, CMP, DIFF CBC, PT ####[address] [place] [address] [place] Platelets (Bld) [#/Vol] 290 10*3/uL Normal 150-450 [facility] Comment on above: Performed By: #### C UBLD, LACTIC, CBC, PTT, CMP, DIFF CBC, PT ####[address] RBC (Bld) [#/Vol] 3.18 10*6/uL Low 3.90-5.60 [facility] Comment on above: Performed By: #### C UBLD, LACTIC, CBC, PTT, CMP, DIFF CBC, PT ####[address] WBC (Bld) [#/Vol] 19.8 10*3/uL High 4.5-11.0 [facility] Comment on above: Performed By: #### C UBLD, LACTIC, CBC, PTT, CMP, DIFF CBC, PT ####[address] Comprehensive Metabolic Pane fidel 11-14-2021 ALT [Catalytic activity/Vol] 18 U/L Normal 10-60 [facility] Comment on above: Performed By: #### C UBLD, LACTIC, CBC, PTT, CMP, DIFF CBC, PT ####[address] Calcium [Mass/Vol] 8.3 mg/dL Normal 8.2-10.2 [facility] Comment on above: Performed By: #### C UBLD, LACTIC, CBC, PTT, CMP, DIFF CBC, PT ####[address] Chloride [Moles/Vol] 107 mmol/L Normal 95-114 [facility] Comment on above: Performed By: #### C UBLD, LACTIC, CBC, PTT, CMP, DIFF CBC, PT ####[address] CO2 [Moles/Vol] 17.9 mmol/L Low 22.0-30.0 [facility] Comment on above: Performed By: #### C UBLD, LACTIC, CBC, PTT, CMP, DIFF CBC, PT ####[place] [phone] Creatinine [Mass/Vol] 3.43 mg/dL High 0.64-1.[address] [facility] Comment on above: Performed By: #### C UBLD, LACTIC, CBC, PTT, CMP, DIFF CBC, PT ####[address] Creatinine Clr Calc Pharmacy 26.63 [facility] Comment on above: Result Comment: PERF ORMED BY:[address] [place], [place] [phone] MEDICAL DIRECTORCHRISTO PINO M.D. Performed By: #### C UBLD, LACTIC, CBC, PTT, CMP, DIFF CBC, PT ####[address] Estimated GFR (Non- Am 18 [facility] Comment on above: Performed By: #### C UBLD, LACTIC, CBC, PTT, CMP, DIFF CBC, PT ####[address] Glucose [Mass/Vol] 162 mg/dL High 70-100 [facility] Comment on above: Result Comment: [place] Glucose Reference Range is dependent on time and content of last meal. Glucose of more than 200 mg/dL in a nonstressed, ambulatory subject supports the diagnosis of Diabetes Mellitus. ADA recommended reference range Performed By: #### C UBLD, LACTIC, CBC, PTT, CMP, DIFF CBC, PT ####[place] [id number] [facility] Potassium [Moles/Vol] 6.1 mmol/L Off scale high 3.5-5.1 [facility] Comment on above: Result Comment: Resu lts called at 1346 on 11/14/21 Performed By: #### C UBLD, LACTIC, CBC, PTT, CMP, DIFF CBC, PT ####[facility] [address] Sodium [Moles/Vol] 134 mmol/L Low 136-146 [facility] Comment on above: Performed By: #### C UBLD, LACTIC, CBC, PTT, CMP, DIFF CBC, PT ####[address] [address] [facility] Diff and CBCon 11-14-2021 Anisocytosis Ql (Bld) Moderate Normal [facility] Comment on above: Performed By: #### C UBLD, LACTIC, CBC, PTT, CMP, DIFF CBC, PT ####[address] [address] [facility] Hypochromasia Slight Normal [facility] Comment on above: Performed By: #### C UBLD, LACTIC, CBC, PTT, CMP, DIFF CBC, PT ####[address] Lymphocytes/100 WBC (Bld) 3.0 % Normal . [facility] Comment on above: Performed By: #### C UBLD, LACTIC, CBC, PTT, CMP, DIFF CBC, PT ####[address] [address] [facility] Monocytes/100 WBC (Bld) 4.0 % Normal . [facility] Comment on above: Performed By: #### C UBLD, LACTIC, CBC, PTT, CMP, DIFF CBC, PT ####[place] [phone] [facility] Neutrophils/100 WBC (Bld) 97.0 % Normal . [facility] Comment on above: Performed By: #### C UBLD, LACTIC, CBC, PTT, CMP, DIFF CBC, PT ####[place] [phone] [facility] Ovalocytes Slight Normal [facility] Comment on above: Performed By: #### C UBLD, LACTIC, CBC, PTT, CMP, DIFF CBC, PT ####[address] [address] [facility] Platelet Estimate Normal Normal Normal [facility] Comment on above: Performed By: #### C UBLD, LACTIC, CBC, PTT, CMP, DIFF CBC, PT ####[address] [address] [facility] Platelet Morphology Normal Normal Normal [facility] Comment on above: Result Comment: PERF ORMED BY:[address] [place], [place] [phone] MEDICAL MOOSE PINO M.D. Performed By: #### C UBLD, LACTIC, CBC, PTT, CMP, DIFF CBC, PT ####[address] [address] [facility] Poikilocytosis Moderate Normal [facility] Comment on above: Performed By: #### C UBLD, LACTIC, CBC, PTT, CMP, DIFF CBC, PT ####[address] [address] [facility] Target Cells Slight Normal [facility] Comment on above: Performed By: #### C UBLD, LACTIC, CBC, PTT, CMP, DIFF CBC, PT ####[address] [address] [facility] Dipstick and Microscopicon 0 11-14-2021 Appearance (U) Clear Normal Clear [facility] Comment on above: Order Comment: Name Collection Type:: Sanchez Catheter Performed By: #### C UU, ADDONUAPLUS ####[address] [address] [facility] Bacteria,Urine None Seen Normal None Seen [facility] Comment on above: Order Comment: Name Collection Type:: Sanchez Catheter Performed By: #### C UU, ADDONUAPLUS ####[address] [address] [place] Bilirubin,Urine Negative Normal Negative [facility] Comment on above: Order Comment: Name Collection Type:: Sanchez Catheter Performed By: #### C UU, ADDONUAPLUS ####[address] [address] [facility] Color (U) Yellow Normal Yellow [facility] Comment on above: Order Comment: Name Collection Type:: Sanchez Catheter Performed By: #### C UU, ADDONUAPLUS ####[address] [address] [facility] Glucose Ql (U) Normal Normal Normal [facility] Comment on above: Order Comment: Name Collection Type:: Sanchez Catheter Performed By: #### C UU, ADDONUAPLUS ####[address] [address] [place] Hyaline Casts,Urine 0-8 Normal 0-8 [facility] Comment on above: Order Comment: Name Collection Type:: Sanchez Catheter Result Comment: PERF ORMED BY:[address] [place] [place], [place] [phone] MEDICAL DIRECTORCHRISTO PINO M.D. Performed By: #### C UU, ADDONUAPLUS ####[address] [address] [facility] Ketones Ql (U) Negative Normal Negative [facility] Comment on above: Order Comment: Name Collection Type:: Sanchez Catheter Performed By: #### C UU, ADDONUAPLUS ####[address] [address] [facility] Leukocyte esterase Test strip Ql (U) Negative Normal Negative [facility] Comment on above: Order Comment: Name Collection Type:: Sanchez Catheter Performed By: #### C UU, ADDONUAPLUS ####[address] [address] [facility] Nitrite,Urine Negative Normal Negative [facility] Comment on above: Order Comment: Name Collection Type:: Sanchez Catheter Performed By: #### C UU, ADDONUAPLUS ####[address] [address] [facility] Occult Blood,Urine Negative Normal Negative [facility] Comment on above: Order Comment: Name Collection Type:: Sanchez Catheter Result Comment: PERF ORMED BY:[address] [address] [place] [place], [place] [phone] MEDICAL MOOSE PINO M.D. Performed By: #### C UU, ADDONUAPLUS ####[address] [address] [facility] pH (U) 6.0 [pH] Normal 5.0-9.0 [facility] Comment on above: Order Comment: Name Collection Type:: Sanchez Catheter Performed By: #### C UU, ADDONUAPLUS ####[address] Protein,Urine >=1000 High Negative [facility] Comment on above: Order Comment: Name Collection Type:: Sanchez Catheter Performed By: #### C UU, ADDONUAPLUS ####[address] RBC,Urine 3-4 Normal 0-4 [facility] Comment on above: Order Comment: Name Collection Type:: Sanchez Catheter Performed By: #### C UU, ADDONUAPLUS ####[address] Specificy [place],Urine 1.017 Normal 1.001-1.030 [facility] Comment on above: Order Comment: Name Collection Type:: Sanchez Catheter Performed By: #### C UU, ADDONUAPLUS ####[address] Squamous Epithelial Cell,Urine 0-1 Normal 0-2 [facility] Comment on above: Order Comment: Name Collection Type:: Sanchez Catheter Performed By: #### C UU, ADDONUAPLUS ####[address] Urobilinogen,Urine Normal Normal Normal [facility] Comment on above: Order Comment: Name Collection Type:: Sanchez Catheter Performed By: #### C UU, ADDONUAPLUS ####[address] WBC,Urine 1-2 Normal 0-4 [facility] Comment on above: Order Comment: Name Collection Type:: Sanchez Catheter Performed By: #### C UU, ADDONUAPLUS ####[address] [place] [address] [facility] ECG 12 lead ECGon 11-14-2021 ECG 12 lead ECG Normal [facility] Glucose Poct Glucometerson 0 11-14-2021 Glucose [Mass/Vol] 191 mg/dL Normal [facility] Comment on above: Result Comment: [facility] Glucose Reference Range is dependent on time and content of last meal. Glucose of more than 200 mg/dL in a nonstressed, ambulatory subject supports the diagnosis of Diabetes Mellitus.PERFORMED BY:[address] [address] [address] [place], [place] [phone] MEDICAL DIRECTORCHRISTO PINO M.D. Performed By: #### G LULS ####Point of Care testing, Commemt1 Glu2: Cleaned Meter Normal [facility] Comment on above: Result Comment: PERF ORMED BY:[address] [place], [place] [phone] MEDICAL DIRECTORCHRISTO PINO M.D. Performed By: #### G LULS ####Point of Care testing, Glucose [Mass/Vol] 97 mg/dL Normal [facility] Comment on above: Result Comment: [facility] Glucose Reference Range is dependent on time and content of last meal. Glucose of more than 200 mg/dL in a nonstressed, ambulatory subject supports the diagnosis of Diabetes Mellitus. Performed By: #### G LULS ####Point of Care testing, Ketones Auto test strip (U) [Mass/Vol]Ordered By: Ivan Springer on 11-14-2021 Ketones (U) [Mass/Vol] Negative Negative Fi [facility] Laboratory - Chemistry and C hemistry - challengeOrdered By: Ivan Springer on 11-14-2021 CO2 [Moles/Vol] 19.4 mmol/L 24.0-29.0 [facility] HCO3 (Bld) [Moles/Vol] 18.2 mmol/L 23.0-29.0 [facility] - Microbiology an d Antimicrobial susceptibilityOrdered By: Ivan Springer on 11-14-2021 SARS-CoV-2 (COVID-19) RNA JAYMIE+probe Ql (Unsp spec) N/A [facility] - UrinalysisOrder ed By: Ivan Springer on 11-14-2021 Hyaline casts LM Ql (Urine sed) 0-8 [LPF] 0-8 [facility] Lactic Acidon 11-14-2021 Lactate [Moles/Vol] 1.9 mmol/L Normal 0.5-2.2 [facility] Comment on above: Result Comment: PERF ORMED BY:[facility] [place], [place] [phone] MEDICAL DIRECTORCHRISTO PINO M.D. Performed By: #### C UBLD, LACTIC, CBC, PTT, CMP, DIFF CBC, PT ####[facility] [place] [address] [facility] Nitrite Test strip Ql (U)Ord ered By: Ivan Springer on 11-14-2021 Nitrite Ql (U) Negative Negative [facility] No Panel InformationOrdered By: Ivan Springer on 11-14-2021 Blood Gas Critical Value See comment [facility] Comment on above: Critical Value brower d on: 11/14/2021 at 13:32 Blood Gas Sample Site Venous Fir [facility] FiO2 21 % [facility] Venous Blood Base Excess -7.9 mmol/L -3.0-3.0 [facility] Venous Blood Oxygen Content 4.7 mmol/L 6.6-9.7 [facility] Venous Blood Oxygen Saturation 75.2 % 73.0-76.0 [facility] Venous Blood Partial Pressure CO2 39.3 mm[Hg] 38.0-50.0 [facility] Venous Blood Partial Pressure O2 43.7 mm[Hg] 35.0-45.0 [facility] Venous Blood pH 7.28 7.32-7.43 [facility] SARS Antigen (LFIA) [facility] Ovalocyte detectionOrdered B y: Ivan Langeton on 11-14-2021 Ovalocytes LM Ql (Bld) Slight Fi relaFormerly [facility] Partial Thromboplastin Timeo n 11-14-2021 aPTT Coag (Bld) [Time] 34.5 s Normal 25.1-36.5 [facility] Comment on above: Result Comment: PERF ORMED BY:[address] [place], [place] [phone] MEDICAL DIRECTORCHRISTO PINO M.D. Performed By: #### C UBLD, LACTIC, CBC, PTT, CMP, DIFF CBC, PT ####[address] [place] [address] [facility] Protein Auto test strip (U) [Mass/Vol]Ordered By: Ivan Springer on 11-14-2021 Protein (U) [Mass/Vol] mg/dL Negative [facility] Protein [Mass/volume] in Ser um or PlasmaOrdered By: Ivan Springer on 11-14-2021 Protein [Mass/Vol] 8.2 g/dL High 6.1-7.9 [facility] Comment on above: Performed By: #### C UBLD, LACTIC, CBC, PTT, CMP, DIFF CBC, PT ####[address] [address] [facility] Prothrombin Time INRon 11-14 INR Coag (PPP) [Relative time] 1.2 {INR} Normal [facility] Comment on above: Result Comment: INR Therapeutic Range A) Pre- and Peroperative OAT started two weeks before surgery. NOT HIP SURGERY: 1.5 - 2.5 HIP SURGERY: 2 - 3 B) Primary and secondary prevention of venous THROMBOSIS: 2 - 3 C) Active venous thrombosis, pulmonary embolism and prevention of recurrent venous thrombosis: 2 - 3 D) Prevention of arterial thromboembolism including patients with mechanical heart valves: 3 - 4.5 Performed By: #### C UBLD, LACTIC, CBC, PTT, CMP, DIFF CBC, PT ####[address] [address] [facility] PT Coag (PPP) [Time] 13.4 s High 9.0-12.9 [facility] Comment on above: Performed By: #### C UBLD, LACTIC, CBC, PTT, CMP, DIFF CBC, PT ####[address] [address] [place] Serum globulin measurement b y calculation (mass/volume)Ordered By: Ivan Springer on 11-14-2021 Globulin (S) [Mass/Vol] 5.8 g/dL Normal [facility] Comment on above: Performed By: #### C UBLD, LACTIC, CBC, PTT, CMP, DIFF CBC, PT ####[address] Serum or plasma alanine coy otransferase measurement without P-5'-P (enzymatic activiOrdered By: Ivan Springer on 11-14-2021 ALT No additional P-5'-P [Catalytic activity/Vol] 18 U/L 10-60 [facility] Serum or plasma albumin/glob ulin mass ratioOrdered By: Ivan Springer on 11-14-2021 Albumin/Globulin [Mass ratio] 0.4 {ratio} Normal [facility] Comment on above: Performed By: #### C UBLD, LACTIC, CBC, PTT, CMP, DIFF CBC, PT ####[address] Serum or plasma alkaline perico sphatase measurement (enzymatic activity/volume)Ordered By: Ivan Springer on 11-14-2021 ALP [Catalytic activity/Vol] 143 U/L High 32-92 [facility] Comment on above: Performed By: #### C UBLD, LACTIC, CBC, PTT, CMP, DIFF CBC, PT ####[address] Serum or plasma aspartate am inotransferase measurement (enzymatic activity/volume)Ordered By: Ivan Springer on 11-14-2021 AST [Catalytic activity/Vol] 30 U/L Normal 10-42 [facility] Comment on above: Performed By: #### C UBLD, LACTIC, CBC, PTT, CMP, DIFF CBC, PT ####[address] Serum or plasma total biliru bin measurement (mass/volume)Ordered By: Ivan Springer on 11-14-2021 Bilirubin [Mass/Vol] 0.6 mg/dL Normal 0.3-1.2 [facility] Comment on above: Performed By: #### C UBLD, LACTIC, CBC, PTT, CMP, DIFF CBC, PT ####[address] [address] [facility] Leena Ag Negativeon 11-15-19 Leena Ag Negative Negative Normal Negative [facility] Comment on above: Result Comment: This is a duplicate Leena SARS Antigen (KATHLEEN) result to be used for statistical tracking purpose only.PERFORMED BY:[facility] [place], [place] [phone] MEDICAL DIRECTORCHRISTO PINO M.D. Performed By: #### S OFIANEG, COVID-19 LEENA ####[id number] [facility] Specific gravity Auto test s trip (U) [Rel density]Ordered By: Ivan Springer on 11-14-2021 Specific gravity (U) [Rel density] 1.017 1.001-1.030 [facility] Squamous epithelial cells de tection in urine sediment by light microscopyOrdered By: Ivan Springer on 11-14-2021 Epithelial cells.squamous LM Ql (Urine sed) 0-1 [HPF] 0-2 [facility] Urine Cultureon 11-14-2021 Bacteria identified Cx Nom (U) No Growth 2 Days PERFORMED BY: [facility] [address] [place] [address] PATHOLOGIST MEDICAL TERMINOLOGIST CHRISTO PINO M.D. Normal [facility] Comment on above: Performed By: #### C UU, ADDONUAPLUS ####[id number] [facility] Urine bacteria detection by automated methodOrdered By: Ivan Springer on 11-14-2021 Bacteria Auto Ql (U) None seen None Seen [facility] Urine clarity by refractomet ry automatedOrdered By: Ivan Springer on 11-14-2021 Clarity Refractometry automated (U) Clear Clear [facility] Urine glucose measurement by automated test strip (mass/volume)Ordered By: Ivan Springer on 11-14-2021 Glucose Auto test strip (U) [Mass/Vol] Normal mg/dL Normal [facility] Urine hemoglobin detection b y automated test stripOrdered By: Ivan Springer on 11-14-2021 Hemoglobin Auto test strip Ql (U) Negative Negative [facility] Urine lactic acid measuremen tOrdered By: Ivan Springer on 11-14-2021 Lactate (U) [Moles/Vol] 1.9 mmol/L 0.5-2.2 [facility] Urine leukocyte esterase det ection by automated test stripOrdered By: Ivan Springer on 11-14-2021 Leukocyte esterase Auto test strip Ql (U) Negative Negative [facility] Urobilinogen Auto test strip (U) [Mass/Vol]Ordered By: Ivan Springer on 11-14-2021 Urobilinogen (U) [Mass/Vol] Normal mg/dL Normal [facility] Venous Blood Gason CO2 [Moles/Vol] 19.4 mmol/L Low 24.0-29.0 [facility] Comment on above: Performed By: #### V BG ####Point of Care testing, HCO3 (Bld) [Moles/Vol] 18.2 mmol/L Low 23.0-29.0 [facility] Comment on above: Performed By: #### V BG ####Point of Care testing, Respiratory Critical [facility] Comment on above: Result Comment: Crit ical Value called on: 11/14/2021 at 13:32PERFORMED BY:[address] [place], [place] [phone] MEDICAL DIRECTORCHRISTO PINO M.D. Performed By: #### V BG ####Point of Care testing, VBG Base Excess -7.9 mmol/L Low -3.0-3.0 [facility] Comment on above: Performed By: #### V BG ####Point of Care testing, VBG Draw Site Venous [facility] Comment on above: Performed By: #### V BG ####Point of Care testing, VBG Frac Inspired O2 21 % Normal [facility] Comment on above: Performed By: #### V BG ####Point of Care testing, VBG O2 Content 4.7 mmol/L Low 6.6-9.7 [facility] Comment on above: Performed By: #### V BG ####Point of Care testing, VBG Oxygen Saturation 75.2 % Normal 73.0-76.[address] [facility] Comment on above: Performed By: #### V BG ####Point of Care testing, VBG PCO2 39.3 mm[Hg] Normal 38.0-50.0 [facility] Comment on above: Performed By: #### V BG ####Point of Care testing, VBG PH Venous PH 7.28 Low 7.32-7.43 [facility] Comment on above: Performed By: #### V BG ####Point of Care testing, VBG PO2 43.7 mm[Hg] Normal 35.0-45.0 [facility] Comment on above: Performed By: #### V BG ####Point of Care testing, XR foot RT min 3V*on 022 XR foot RT min 3V* Normal [facility] pH Auto test strip (U)Ordere d By: Ivan Springer on 11-14-2021 pH (U) 6.0 [pH] 5.0-9.0 [facility] Blood polychromasia detectio n by light microscopyOrdered By: Jose M Landry on 09-13-2021 Polychromasia LM Ql (Bld) Slight [facility] Diff and CBCon 09-13-2021 Anisocytosis Ql (Bld) Marked Normal [facility] Comment on above: Performed By: #### D IFF CBC ####[facility] [address] [place] [address] [place] Eosinophils/100 WBC (Bld) 9 % High 1-3 [facility] Comment on above: Performed By: #### D IFF CBC ####[facility] [address] [place] [address] [facility] Erythrocyte distribution width (RBC) [Ratio] 19.9 % High 12.0-14.8 [facility] Comment on above: Performed By: #### D IFF CBC ####[place] [id number] [facility] Hematocrit (Bld) [Volume fraction] 26.3 % Low 38.8-50.0 [facility] Comment on above: Performed By: #### D IFF CBC ####[id number] [facility] Hemoglobin (Bld) [Mass/Vol] 8.2 g/dL Low 13.0-17.0 [facility] Comment on above: Performed By: #### D IFF CBC ####[id number] [facility] Large Platelets Slight Normal [facility] Comment on above: Result Comment: PERF ORMED BY:[address] [place], [place] [phone] MEDICAL DIRECTORCHRISTO PINO M.D. Performed By: #### D IFF CBC ####[id number] [facility] Lymphocytes/100 WBC (Bld) 50 % High 18-42 [facility] Comment on above: Performed By: #### D IFF CBC ####[address] [id number] [facility] MCH (RBC) [Entitic mass] 28.8 pg Normal 27.5-35.2 [facility] Comment on above: Performed By: #### D IFF CBC ####[address] [id number] [facility] MCV (RBC) [Entitic vol] 92.5 fL Normal 83.5-101 [facility] Comment on above: Performed By: #### D IFF CBC ####[id number] [facility] Mean Corpuscular HGB Conc 31.1 g/dL Low 32.5-35.6 [facility] Comment on above: Performed By: #### D IFF CBC ####[address] [address] [facility] Monocytes/100 WBC (Bld) 14 % High 2-11 [facility] Comment on above: Performed By: #### D IFF CBC ####[address] [address] [facility] Nucleated RBC/100 WBC (Bld) [Ratio] 5.1 % High 0-0.5 [facility] Comment on above: Performed By: #### D IFF CBC ####[place] [id number] [facility] Nucleated Red Blood Cell 5 /100{WBC} High 0-0 [facility] Comment on above: Performed By: #### D IFF CBC ####[id number] [facility] Ovalocytes Slight Normal [facility] Comment on above: Performed By: #### D IFF CBC ####[place] [id number] [facility] Platelet Estimate Normal Normal Normal [facility] Comment on above: Performed By: #### D IFF CBC ####[address] [address] [facility] Platelet mean volume (Bld) [Entitic vol] 11.0 fL High 6.6-10.1 [facility] Comment on above: Performed By: #### D IFF CBC ####[place] [id number] [facility] Platelets (Bld) [#/Vol] 310 10*3/uL Normal 150-450 [facility] Comment on above: Performed By: #### D IFF CBC ####[address] [address] [facility] Poikilocytosis Slight Normal [facility] Comment on above: Performed By: #### D IFF CBC ####[place] [id number] [facility] Polychromasia Slight Normal [facility] Comment on above: Performed By: #### D IFF CBC ####[address] [id number] [facility] RBC (Bld) [#/Vol] 2.84 10*6/uL Low 3.90-5.60 [facility] Comment on above: Performed By: #### D IFF CBC ####[facility] [address] [place] [id number] [facility] Segmented neutrophils/100 WBC (Bld) 27 % Low 50-70 [facility] Comment on above: Performed By: #### D IFF CBC ####[facility] [id number] Target Cells Slight Normal [facility] Comment on above: Performed By: #### D IFF CBC ####[facility] [address] [place] [address] [facility] WBC (Bld) [#/Vol] 11.8 10*3/uL High 4.5-11.0 [facility] Comment on above: Performed By: #### D IFF CBC ####[facility] [id number] [place] [address] [facility] Lymphocytes/100 WBC Auto (Bl d)Ordered By: Jose M Landry on 09-13-2021 Lymphocytes/100 WBC (Bld) 50 % 18-42 [facility] MR foot RT wo conon 09-14-19 22 MR foot RT wo con Normal [facility] Monocyte %Ordered By: Caroline Landry on 09-13-2021 Monocytes/100 WBC (Bld) 9 % 1-3 [facility] Monocytes/100 WBC Manual cnt (Bld)Ordered By: Jose M Landry on 09-13-2021 Monocytes/100 WBC (Bld) 14 % 2-11 [facility] No Panel InformationOrdered By: Jose M Landry on 09-13-2021 Large Platelets Slight [facility] Nucleated Red Blood Cells/100 WBC 5 /100{WBC} 0-0 [facility] Poikilocytosis Slight [facility] 5 /100{WBC} 0-0 [facility] Slight [facility] Ovalocyte detectionOrdered B y: oJse M Landry on 09-13-2021 Ovalocytes LM Ql (Bld) Slight [facility] Segmented neutrophils/100 WB C Manual cnt (Bld)Ordered By: Jose M Landry on 09-13-2021 Segmented neutrophils/100 WBC (Bld) 27 % 50-70 [facility] Diff and CBCon 09-05-2021 Anisocytosis Ql (Bld) Moderate Normal Fir [facility] Comment on above: Performed By: #### D IFF CBC, FE and TIBC, OKSANA ####[address] Eosinophils/100 WBC (Bld) 3 % Normal 1-3 [facility] Comment on above: Performed By: #### D IFF CBC, FE and TIBC, OKSANA ####[address] Erythrocyte distribution width (RBC) [Ratio] 18.9 % High 12.0-14.8 [facility] Comment on above: Performed By: #### D IFF CBC, FE and TIBC, OKSANA ####[address] Hematocrit (Bld) [Volume fraction] 23.6 % Low 38.8-50.0 [facility] Comment on above: Performed By: #### D IFF CBC, FE and TIBC, OKSANA ####[address] Hemoglobin (Bld) [Mass/Vol] 7.6 g/dL Low 13.0-17.0 [facility] Comment on above: Performed By: #### D IFF CBC, FE and TIBC, OKSANA ####[address] Hypochromasia Slight Normal [facility] Comment on above: Performed By: #### D IFF CBC, FE and TIBC, OKSANA ####[place] [id number] [facility] Lymphocytes/100 WBC (Bld) 35 % Normal 18-42 [facility] Comment on above: Performed By: #### D IFF CBC, FE and TIBC, OKSANA ####[address] [place] [address] [facility] MCH (RBC) [Entitic mass] 29.5 pg Normal 27.5-35.2 [facility] Comment on above: Performed By: #### D IFF CBC, FE and TIBC, OKSANA ####[address] [address] [facility] MCV (RBC) [Entitic vol] 91.4 fL Normal 83.5-101 [facility] Comment on above: Performed By: #### D IFF CBC, FE and TIBC, OKSANA ####[place] [id number] [facility] Mean Corpuscular HGB Conc 32.3 g/dL Low 32.5-35.6 [facility] Comment on above: Performed By: #### D IFF CBC, FE and TIBC, OKSANA ####[place] [id number] [facility] Monocytes/100 WBC (Bld) 7 % Normal 2-11 [facility] Comment on above: Performed By: #### D IFF CBC, FE and TIBC, OKSANA ####[place] [id number] [facility] Nucleated RBC/100 WBC (Bld) [Ratio] 0.1 % Normal 0-0.5 [facility] Comment on above: Result Comment: PERF ORMED BY:[address] [place], [place] [phone] MEDICAL MOOSE PINO M.D. Performed By: #### D IFF CBC, FE and TIBC, OKSANA ####[address] [address] [facility] Platelet Estimate Normal Normal Normal [facility] Comment on above: Performed By: #### D IFF CBC, FE and TIBC, OKSANA ####[place] [phone] [facility] Platelet mean volume (Bld) [Entitic vol] 9.6 fL Normal 6.6-10.1 [facility] Comment on above: Performed By: #### D IFF CBC, FE and TIBC, OKSANA ####[address] [address] [facility] Platelet Morphology Normal Normal Normal [facility] Comment on above: Result Comment: PERF ORMED BY:[address] [place], [place] [phone] MEDICAL DIRECTORCHRISTO PINO M.D. Performed By: #### D IFF CBC, FE and TIBC, OKSANA ####[place] [phone] [facility] Platelets (Bld) [#/Vol] 205 10*3/uL Normal 150-450 [facility] Comment on above: Performed By: #### D IFF CBC, FE and TIBC, OKSANA ####[place] [id number] [facility] RBC (Bld) [#/Vol] 2.58 10*6/uL Low 3.90-5.60 [facility] Comment on above: Performed By: #### D IFF CBC, FE and TIBC, OKSANA ####[place] [phone] [facility] Segmented neutrophils/100 WBC (Bld) 55 % Normal 50-70 [facility] Comment on above: Performed By: #### D IFF CBC, FE and TIBC, OKSANA ####[place] [phone] [facility] Target Cells Slight Normal [facility] Comment on above: Performed By: #### D IFF CBC, FE and TIBC, OKSANA ####[place] [id number] [facility] WBC (Bld) [#/Vol] 10.4 10*3/uL Normal 4.5-11.0 [facility] Comment on above: Performed By: #### D IFF CBC, FE and TIBC, OKSANA ####[place] [id number] [facility] Ferritinon 09-05-2021 Ferritin [Mass/Vol] 30.4 ng/mL Normal 23.9-336.2 [facility] Comment on above: Result Comment: PERF ORMED BY:[address] [place] [id number] MEDICAL DIRECTORCHRISTO PINO M.D. Performed By: #### D IFF CBC, FE and TIBC, OKSANA ####[address] Iron and TIBC Profileon 06-0 -2021 % Iron Saturation 28.0 % Normal 20-50 [facility] Comment on above: Performed By: #### D IFF CBC, FE and TIBC, OKSANA ####[address] Iron [Mass/Vol] 89 ug/dL Normal 40-160 [facility] Comment on above: Performed By: #### D IFF CBC, FE and TIBC, OKSANA ####[address] Total Iron Binding Capacity 312 ug/dL Normal 255-450 [facility] Comment on above: Performed By: #### D IFF CBC, FE and TIBC, OKSANA ####[address] Transferrin [Mass/Vol] 223 mg/dL Normal 180-380 [facility] Comment on above: Performed By: #### D IFF CBC, FE and TIBC, OKSANA ####[address] Laboratory - Hematology and Cell countsOrdered By: Jose M Landry on 11-20-2020 Band form neutrophils/100 WBC (Bld) 1 % 0-5 [facility] Lymphocytes/100 WBC Manual c nt (Bld)Ordered By: Jose M Landry on 11-20-2020 Lymphocytes/100 WBC (Bld) 2 % 0-12 [facility] Metamyelocytes/100 WBC Manua l cnt (Bld)Ordered By: Jose M Landry on 11-20-2020 Metamyelocytes/100 WBC (Bld) 1 % 0-0 [facility] No Panel InformationOrdered By: Jose M Landry on 11-20-2020 1 % 0-5 [facility] Erythrocyte [facility] bod y detectionon 07-18-2020 [facility] bodies LM Ql (Bld) Moderate [facility] Erythrocyte sedimentation ra te by Photometric methodon 06-26-2020 ESR Photometric method (Bld) [Velocity] 128 mm/hr 0-19 [facility] No Panel Informationon 06-26 Crenated Cell Slight [facility] Methylmalonic Acid Comment See comment . [facility] Comment on above: This test was develo ped and its performance characteristics determined by [employer]. It has not been cleared or approved by the Food and Drug Administration. Performed at: [facility] [employer] [id number] Refuse Laborer: Fabienne Harmon MD, Phone: [phone] This test was develo ped and its performance characteristicsdetermined by [employer]. It has not been cleared orapproved by the Food and Drug Administration.Performed at: [employer] [id number] Director: Fabienne Harmon MD, Phone: [phone] [facility] See comment . [facility] Serum or plasma erythropoiet in (EPO) measurement (units/volume)on 06-26-2020 Erythropoietin (EPO) Qn 12.1 mIU/mL 2.6-18.5 [facility] Comment on above: Document Agility el DxI 800 Immunoassay System Values obtained with different assay methods or kits cannot be used interchangeably. Results cannot be interpreted as absolute evidence of the presence or absence of malignant disease. Performed at: [facility] [id number] Refuse Laborer: Colton Lane PhD, Phone: [phone] Document Agility el DxI 800 Immunoassay SystemValues obtained with different assay methods or kits cannotbe used interchangeably. Results cannot be interpreted asabsolute evidence of the presence or absence of malignantdisease.Performed at: [facility] [id number] Director: Colton Lane PhD, Phone: [phone] Serum or plasma methylmalona te measurement (moles/volume)on 06-26-2020 Methylmalonate [Moles/Vol] 741 nmol/L 0-378 [facility] Vital Signs Date Time Vital Sign Value Performing Clinician Facility 04-16-2023 13:15-0500 Diastolic blood pressure 86 mm[Hg] SLEEVE TAILORChristina Dixon Work Phone: [facility] 04-16-2023 13:15-0500 Heart rate 82 /min SLEEVE TAILORChristina Dixon Work Phone: [facility] 04-16-2023 13:15-0500 Respiratory rate 16 /min SLEEVE TAILORChristina Dixon Work Phone: [facility] 04-16-2023 13:15-0500 SaO2% (BldA) [Mass fraction] 100 % SLEEVE TAILOR [facility] Work Phone: [facility] 04-16-2023 13:15-0500 Systolic blood pressure 170 mm[Hg] SLEEVE TAILORChristina Dixon Work Phone: [facility] 04-16-2023 11:00-0500 Inhaled oxygen flow rate 6 L/min SLEEVE TAILORChristina Dixon Work Phone: [facility] 04-16-2023 09:33-0500 Body mass index (BMI) [Ratio] 30.2 kg/m2 SLEEVE TAILORChristina Dixon Work Phone: [facility] 04-16-2023 08:57-0500 Body height 187.96 cm SLEEVE TAILORChristina Dixon Work Phone: [facility] 04-16-2023 08:57-0500 Body weight 106.59 kg SLEEVE TAILORChristina Dixon Work Phone: [facility] 04-16-2023 07:54-0500 Body temperature 97.7 [degF] SLEEVE TAILORChristina Dixon Work Phone: [facility] 03-11-2023 10:00-0500 Body height 182.88 cm Fawad Salinasrer Other [facility] Other 03-11-2023 10:00-0500 Body mass index (BMI) [Ratio] 33.22 kg/m2 Fawad Salinasrer Other [facility] Other 03-11-2023 10:00-0500 Body temperature 96.7 [degF] Fawad Salinasrer Other [facility] Other 03-11-2023 10:00-0500 Body weight 111.13 kg Fawad Salinasrer Other [facility] Other 03-11-2023 10:00-0500 Diastolic blood pressure 80 mm[Hg] Fawadsunni Salinasrer Other [facility] Other 03-11-2023 10:00-0500 SaO2% (BldA) [Mass fraction] 98 % Fawad Mosleyehrer Other [facility] Other 03-11-2023 10:00-0500 Systolic blood pressure 152 mm[Hg] Fawad Mosleyehrer Other [facility] Other 02-13-2023 14:00-0500 Body height 182.88 cm Johan Taylor Other [facility] Other 02-13-2023 14:00-0500 Body temperature 97.8 [degF] Johan Taylor Other [facility] Other 02-13-2023 14:00-0500 Diastolic blood pressure 77 mm[Hg] Johan Taylor Other [facility] Other 02-13-2023 14:00-0500 Respiratory rate 18 /min Johan Taylor Other [facility] Other 02-13-2023 14:00-0500 SaO2% (BldA) [Mass fraction] 99 % Johan Taylor Other [facility] Other 02-13-2023 14:00-0500 Systolic blood pressure 137 mm[Hg] Johan Taylor Other [place] [employer] Other 01-17-2023 13:19-0400 Body height 187.96 cm BOAT OFFICER-C Mervat Spasic Work Phone: [facility] 01-17-2023 13:19-0400 Body temperature 97.9 [degF] BOAT OFFICER-C Mervat Spasic Work Phone: [facility] 01-17-2023 13:19-0400 Body weight 108.8 kg BOAT OFFICER-C Mervat Spasic Work Phone: [facility] 01-17-2023 13:19-0400 Diastolic blood pressure 83 mm[Hg] BOAT OFFICER-C Mervat Spasic Work Phone: [facility] 01-17-2023 13:19-0400 Heart rate 88 /min BOAT OFFICER-C Mervat Spasic Work Phone: [facility] 01-17-2023 13:19-0400 Respiratory rate 18 /min BOAT OFFICER-C Mervat Spasic Work Phone: [facility] 01-17-2023 13:19-0400 SaO2% (BldA) [Mass fraction] 98 % BOAT OFFICER-C Mervat Spasic Work Phone: [facility] 01-17-2023 13:19-0400 Systolic blood pressure 169 mm[Hg] BOAT OFFICER-C Mervat Kgsic Work Phone: [facility] 12-19-2022 15:15-0400 Blood Pressure Location Kiko Lue [facility] 12-19-2022 15:15-0400 Diastolic blood pressure 81 mm[Hg] Kiko Lue [facility] 12-19-2022 15:15-0400 Heart rate 86 /min Kiko Lue [facility] 12-19-2022 15:15-0400 Systolic blood pressure 137 mm[Hg] Kiko Lue [facility] 12-12-2022 15:00-0400 Body height 182.88 cm Johan Taylor Other [facility] Other 12-12-2022 15:00-0400 Body temperature 97.2 [degF] Johan Taylor Other [facility] Other 12-12-2022 15:00-0400 Diastolic blood pressure 83 mm[Hg] Johan Taylor Other [facility] Other 12-12-2022 15:00-0400 Respiratory rate 18 /min Johan Taylor Other [facility] Other 12-12-2022 15:00-0400 SaO2% (BldA) [Mass fraction] 99 % Johan Taylor Other [facility] Other 12-12-2022 15:00-0400 Systolic blood pressure 155 mm[Hg] Johan Taylor Other [facility] Other 11-07-2022 14:30-0400 Body height 182.88 cm Riya Pitt Other [facility] Other 11-07-2022 14:30-0400 Body mass index (BMI) [Ratio] 32.55 kg/m2 Riya Pitt Other [facility] Other 11-07-2022 14:30-0400 Body temperature 97.7 [degF] Riya Sweetie Other [facility] Other 11-07-2022 14:30-0400 Body weight 108.86 kg Riya Sweetie Other [facility] Other 11-07-2022 14:30-0400 Diastolic blood pressure 80 mm[Hg] Riya Pitt Other [facility] Other 11-07-2022 14:30-0400 Systolic blood pressure 149 mm[Hg] Riya Sweetie Other [facility] Other 10-24-2022 14:23-0400 Body temperature 97.6 [degF] DO Maye Bunting Work Phone: [facility] 10-24-2022 14:23-0400 Diastolic blood pressure 83 mm[Hg] DO Maye Bunting Work Phone: [facility] 10-24-2022 14:23-0400 Heart rate 83 /min DO Maye Bunting Work Phone: [facility] 10-24-2022 14:23-0400 Respiratory rate 18 /min DO Maye Bunting Work Phone: [facility] 10-24-2022 14:23-0400 SaO2% (BldA) [Mass fraction] 97 % DO Maye Bunting Work Phone: [facility] 10-24-2022 14:23-0400 Systolic blood pressure 150 mm[Hg] DO Maye Bunting Work Phone: [facility] 10-24-2022 06:00-0400 Body weight 112.9 kg DO Maye Bunting Work Phone: [facility] 10-23-2022 14:10-0400 Body height 187.96 cm DO Maye Bunting Work Phone: [facility] 10-22-2022 21:17-0400 Body temperature 98.4 [degF] DO Maye Bunting Work Phone: [facility] 10-22-2022 21:17-0400 Diastolic blood pressure 87 mm[Hg] DO Maye Bunting Work Phone: [facility] 10-22-2022 21:17-0400 Systolic blood pressure 161 mm[Hg] DO Maye Bunting Work Phone: [facility] 10-22-2022 21:14-0400 Heart rate 95 /min DO Maye Bunting Work Phone: [facility] 10-22-2022 21:14-0400 Respiratory rate 20 /min DO Maye Bunting Work Phone: [facility] 10-22-2022 21:14-0400 SaO2% (BldA) [Mass fraction] 98 % DO Maye Bunting Work Phone: [facility] 10-22-2022 15:41-0400 Body height 187.96 cm DO Maye Bunting Work Phone: [facility] 10-22-2022 15:41-0400 Body weight 108.86 kg DO Maye Bunting Work Phone: [facility] 10-21-2022 12:47-0400 Body height 187.96 cm DO Maye Bunting Work Phone: [facility] 10-21-2022 12:47-0400 Body weight 108.86 kg DO Maye Bunting Work Phone: [facility] 10-21-2022 12:46-0400 Body temperature 98 [degF] DO Maye Bunting Work Phone: [facility] 10-21-2022 12:46-0400 Diastolic blood pressure 88 mm[Hg] DO Maye Bunting Work Phone: [facility] 10-21-2022 12:46-0400 Heart rate 98 /min DO Maye Bunting Work Phone: [facility] 10-21-2022 12:46-0400 Respiratory rate 18 /min DO Maye Bunting Work Phone: [facility] 10-21-2022 12:46-0400 SaO2% (BldA) [Mass fraction] 98 % DO Maye Bunting Work Phone: [facility] 10-21-2022 12:46-0400 Systolic blood pressure 151 mm[Hg] DO Maye Bunting Work Phone: [facility] 10-15-2022 11:07-0400 Body height 187.96 cm DO Maye Bunting Work Phone: [facility] 10-15-2022 11:07-0400 Body temperature 98.2 [degF] DO Maye Bunting Work Phone: [facility] 10-15-2022 11:07-0400 Body weight 106.59 kg DO Maye Bunting Work Phone: [facility] 10-15-2022 11:07-0400 Diastolic blood pressure 83 mm[Hg] DO Maye Bunting Work Phone: [facility] 10-15-2022 11:07-0400 Heart rate 96 /min DO Maye Bunting Work Phone: [facility] 10-15-2022 11:07-0400 Respiratory rate 18 /min DO Maye Bunting Work Phone: [facility] 10-15-2022 11:07-0400 SaO2% (BldA) [Mass fraction] 100 % DO Maye Bunting Work Phone: [facility] 10-15-2022 11:07-0400 Systolic blood pressure 174 mm[Hg] DO Maye Bunting Work Phone: [facility] 10-13-2022 12:00-0400 Diastolic blood pressure 81 mm[Hg] DO Maye Bunting Work Phone: [facility] 10-13-2022 12:00-0400 Heart rate 97 /min DO Maye Bunting Work Phone: [facility] 10-13-2022 12:00-0400 Respiratory rate 20 /min DO Maye Bunting Work Phone: [facility] 10-13-2022 12:00-0400 SaO2% (BldA) [Mass fraction] 97 % DO Maye Bunting Work Phone: [facility] 10-13-2022 12:00-0400 Systolic blood pressure 159 mm[Hg] DO Maye Bunting Work Phone: [facility] 10-13-2022 09:24-0400 Body temperature 97.5 [degF] DO Maye Bunting Work Phone: [facility] 10-13-2022 09:23-0400 Body height 187.96 cm DO Maye Bunting Work Phone: [facility] 10-13-2022 09:23-0400 Body weight 106.59 kg DO Maye Bunting Work Phone: [facility] 09-12-2022 11:17-0400 Body temperature 97.7 [degF] DO Maye Bunting Work Phone: [facility] 09-12-2022 11:17-0400 Diastolic blood pressure 69 mm[Hg] DO Maye Bunting Work Phone: [facility] 09-12-2022 11:17-0400 Heart rate 84 /min DO Maye Bunting Work Phone: [facility] 09-12-2022 11:17-0400 Respiratory rate 16 /min DO Maye Bunting Work Phone: [facility] 09-12-2022 11:17-0400 SaO2% (BldA) [Mass fraction] 99 % DO Maye Bunting Work Phone: [facility] 09-12-2022 11:17-0400 Systolic blood pressure 135 mm[Hg] DO Maye Bunting Work Phone: [facility] 09-12-2022 05:19-0400 Body weight 110.6 kg DO Maye Bunting Work Phone: [facility] 09-11-2022 11:45-0400 Body height 187.96 cm DO Maye Bunting Work Phone: [facility] 09-10-2022 16:20-0400 Body temperature 97.5 [degF] DO Maye Bunting Work Phone: [facility] 09-10-2022 16:20-0400 Diastolic blood pressure 89 mm[Hg] DO Maye Bunting Work Phone: [facility] 09-10-2022 16:20-0400 Heart rate 95 /min DO Maye Bunting Work Phone: [facility] 09-10-2022 16:20-0400 Respiratory rate 16 /min DO Maye Bunting Work Phone: [facility] 09-10-2022 16:20-0400 SaO2% (BldA) [Mass fraction] 100 % DO Maye Bunting Work Phone: [facility] 09-10-2022 16:20-0400 Systolic blood pressure 203 mm[Hg] DO Maye Bunting Work Phone: [facility] 09-10-2022 10:26-0400 Body height 187.96 cm DO Maye Bunting Work Phone: [facility] 09-10-2022 10:26-0400 Body weight 104.32 kg DO Maye Bunting Work Phone: [facility] 08-31-2022 07:57-0400 Body temperature 98.1 [degF] DO Maye Bunting Work Phone: [facility] 08-31-2022 07:57-0400 Diastolic blood pressure 80 mm[Hg] DO Maye Bunting Work Phone: [facility] 08-31-2022 07:57-0400 Heart rate 75 /min DO Maye Bunting Work Phone: [facility] 08-31-2022 07:57-0400 Respiratory rate 17 /min DO Maye Bunting Work Phone: [facility] 08-31-2022 07:57-0400 SaO2% (BldA) [Mass fraction] 99 % DO Maye Bunting Work Phone: [facility] 08-31-2022 07:57-0400 Systolic blood pressure 149 mm[Hg] DO Maye Bunting Work Phone: [facility] 08-31-2022 06:34-0400 Body weight 98.5 kg DO Maye Bunting Work Phone: [facility] 08-30-2022 10:30-0400 Body height 187.96 cm DO Maye Bunting Work Phone: [facility] 08-27-2022 15:38-0400 Diastolic blood pressure 110 mm[Hg] DO Maye Bunting Work Phone: [facility] 08-27-2022 15:38-0400 Heart rate 90 /min DO Maye Bunting Work Phone: [facility] 08-27-2022 15:38-0400 Respiratory rate 18 /min DO Maye Bunting Work Phone: [facility] 08-27-2022 15:38-0400 SaO2% (BldA) [Mass fraction] 98 % DO Maye Bunting Work Phone: [facility] 08-27-2022 15:38-0400 Systolic blood pressure 220 mm[Hg] DO Maye Bunting Work Phone: [facility] 08-27-2022 12:34-0400 Body height 187.96 cm DO Maye Bunting Work Phone: [facility] 08-27-2022 12:34-0400 Body temperature 98.5 [degF] DO Maye Bunting Work Phone: [facility] 08-27-2022 12:34-0400 Body weight 106.59 kg DO Maye Bunting Work Phone: [facility] 08-09-2022 14:50-0400 Body temperature 97.9 [degF] DO Maye Bunting Work Phone: [facility] 08-09-2022 14:50-0400 Diastolic blood pressure 84 mm[Hg] DO Maye Bunting Work Phone: [facility] 08-09-2022 14:50-0400 Heart rate 94 /min DO Maye Bunting Work Phone: [facility] 08-09-2022 14:50-0400 Respiratory rate 18 /min DO Maye Bunting Work Phone: [facility] 08-09-2022 14:50-0400 SaO2% (BldA) [Mass fraction] 94 % DO Maye Bunting Work Phone: 8(265)988-817905 [place] [address] 08-09-2022 14:50-0400 Systolic blood pressure 138 mm[Hg] DO Maye Bunting Work Phone: [facility] 07-19-2022 13:16-0400 Body temperature 97.7 [degF] DO Maye Bunting Work Phone: [facility] 07-19-2022 13:16-0400 Diastolic blood pressure 70 mm[Hg] DO Maye Bunting Work Phone: 0(447)245-201705 [place] [address] 07-19-2022 13:16-0400 Heart rate 94 /min DO Maye Bunting Work Phone: 0(238)452-893205 [place] [address] 07-19-2022 13:16-0400 Respiratory rate 20 /min DO Maye Bunting Work Phone: 0(413)295-163076 [address] 07-19-2022 13:16-0400 SaO2% (BldA) [Mass fraction] 97 % DO Maye Bunting Work Phone: 3(933)[phone] [place] [address] 07-19-2022 13:16-0400 Systolic blood pressure 138 mm[Hg] DO Maye Bunting Work Phone: 9(202)339-647105 [place] [address] 07-17-2022 09:06-0400 Diastolic blood pressure 85 mm[Hg] DO Maye Bunting Work Phone: [facility] 07-17-2022 09:06-0400 Heart rate 106 /min DO Maye Bunting Work Phone: [facility] 07-17-2022 09:06-0400 Respiratory rate 18 /min DO Maye Bunting Work Phone: [facility] 07-17-2022 09:06-0400 SaO2% (BldA) [Mass fraction] 100 % DO Maye Bunting Work Phone: [facility] 07-17-2022 09:06-0400 Systolic blood pressure 187 mm[Hg] DO Maye Bunting Work Phone: [facility] 07-17-2022 07:08-0400 Body temperature 97.2 [degF] DO Maye Bunting Work Phone: [facility] 07-16-2022 21:11-0400 Body height 187.96 cm DO Maye Bunting Work Phone: [facility] 07-16-2022 [id number] Body weight 107.5 kg DO Maye Bunting Work Phone: [facility] 06-07-2022 08:39-0500 Blood Pressure Location Kiko Lue [facility] 06-07-2022 08:39-0500 Diastolic blood pressure 88 mm[Hg] Kiko Lue [facility] 06-07-2022 08:39-0500 Heart rate 84 /min Kiko Lue [facility] 06-07-2022 08:39-0500 Systolic blood pressure 144 mm[Hg] Kiko Lue [facility] 04-26-2022 08:13-0500 Blood Pressure Location Kiko Lue [facility] 04-26-2022 08:13-0500 Diastolic blood pressure 84 mm[Hg] Kiko Lue [facility] 04-26-2022 08:13-0500 Heart rate 71 /min Kiko Lue [facility] 04-26-2022 08:13-0500 Systolic blood pressure 135 mm[Hg] Kiko Lue [facility] 04-22-2022 09:59-0500 Body temperature 97.8 [degF] DO Maye Bunting Work Phone: [facility] 04-22-2022 09:59-0500 Diastolic blood pressure 80 mm[Hg] DO Maye Bunting Work Phone: [facility] 04-22-2022 09:59-0500 Heart rate 88 /min DO Maye Bunting Work Phone: [facility] 04-22-2022 09:59-0500 Respiratory rate 16 /min DO Maye Bunting Work Phone: [facility] 04-22-2022 09:59-0500 SaO2% (BldA) [Mass fraction] 98 % DO Maye Bunting Work Phone: [facility] 04-22-2022 09:59-0500 Systolic blood pressure 145 mm[Hg] DO Maye Bunting Work Phone: [facility] 04-09-2022 15:23-0500 Diastolic blood pressure 85 mm[Hg] DO Maye Bunting Work Phone: [facility] 04-09-2022 15:23-0500 Heart rate 98 /min DO Maye Bunting Work Phone: [facility] 04-09-2022 15:23-0500 Respiratory rate 16 /min DO Maye Bunting Work Phone: [facility] 04-09-2022 15:23-0500 SaO2% (BldA) [Mass fraction] 98 % DO Maye Bunting Work Phone: [facility] 04-09-2022 15:23-0500 Systolic blood pressure 136 mm[Hg] DO Maye Bunting Work Phone: [facility] 04-09-2022 14:53-0500 Inhaled oxygen flow rate 6 L/min DO Maye Bunting Work Phone: [facility] 04-09-2022 13:33-0500 Body height 187.96 cm DO Maye Bunting Work Phone: [facility] 04-09-2022 13:33-0500 Body mass index (BMI) [Ratio] 30.8 kg/m2 DO Maye Bunting Work Phone: [facility] 04-09-2022 13:33-0500 Body weight 108.86 kg DO Maye Bunting Work Phone: [facility] 04-09-2022 12:15-0500 Body temperature 97.7 [degF] DO Maye Bunting Work Phone: [facility] 03-05-2022 13:35-0500 Diastolic blood pressure 84 mm[Hg] DO Maye Bunting Work Phone: [facility] 03-05-2022 13:35-0500 Heart rate 94 /min DO Maye Bunting Work Phone: [facility] 03-05-2022 13:35-0500 Systolic blood pressure 187 mm[Hg] DO Maye Bunting Work Phone: [facility] 03-05-2022 13:23-0500 65 1 Maye R Bunting Work Phone: [facility] [employer] 250 DO Work Phone: Comment on above: [id number] 03-05-2022 09:14-0500 61 1 Maye R Bunting Work Phone: [facility] [employer] 250 DO Work Phone: Comment on above: [id number] 02-21-2022 11:26-0500 Diastolic blood pressure 78 mm[Hg] Maye R Bunting Work Phone: [facility] [employer] 250 DO Work Phone: 02-21-2022 11:26-0500 Systolic blood pressure 136 mm[Hg] Maye R Bunting Work Phone: [facility] [employer] 250 DO Work Phone: 02-21-2022 10:53-0500 Body height 187.96 cm Maye R Bunting Work Phone: [facility] [employer] 250 DO Work Phone: 02-21-2022 10:53-0500 Body mass index (BMI) [Ratio] Patient Reason Not Done Maye R Bunting Work Phone: [facility] [employer] 250 DO Work Phone: 02-21-2022 10:53-0500 Diastolic blood pressure 78 mm[Hg] Maye R Bunting Work Phone: [facility] [employer] 250 DO Work Phone: 02-21-2022 10:53-0500 Diastolic blood pressure 90 mm[Hg] Maye R Bunting Work Phone: [facility] [employer] 250 DO Work Phone: 02-21-2022 10:53-0500 Heart rate 90 /min Maye R Bunting Work Phone: [facility] [employer] 250 DO Work Phone: 02-21-2022 10:53-0500 Systolic blood pressure 144 mm[Hg] Maye R Bunting Work Phone: [facility] [employer] 250 DO Work Phone: 01-31-2022 14:20-0400 Body height 182.88 cm Johan Taylor Other [facility] Other 01-31-2022 14:20-0400 Body temperature 98 [degF] Johan Taylor Other [facility] Other 01-31-2022 14:20-0400 Diastolic blood pressure 78 mm[Hg] Johan Taylor Other [place] [employer] Other 01-31-2022 14:20-0400 Respiratory rate 18 /min Johan Taylor Other [facility] Other 01-31-2022 14:20-0400 SaO2% (BldA) [Mass fraction] 98 % Johan Taylor Other [facility] Other 01-31-2022 14:20-0400 Systolic blood pressure 169 mm[Hg] Johan Taylor Other [facility] [employer] Other 01-25-2022 11:02-0400 Body height 187.96 cm DO Maye Bunting Work Phone: [facility] 01-25-2022 11:02-0400 Body weight 108.9 kg DO Maye Bunting Work Phone: [facility] 01-25-2022 11:02-0400 Diastolic blood pressure 81 mm[Hg] DO Maye Bunting Work Phone: [facility] 01-25-2022 11:02-0400 Heart rate 83 /min DO Maye Bunting Work Phone: [facility] 01-25-2022 11:02-0400 Respiratory rate 18 /min DO Maye Bunting Work Phone: [facility] 01-25-2022 11:02-0400 SaO2% (BldA) [Mass fraction] 98 % DO Maye Bunting Work Phone: [facility] 01-25-2022 11:02-0400 Systolic blood pressure 145 mm[Hg] DO Maye Bunting Work Phone: [facility] 01-11-2022 16:28-0400 Body height 187.96 cm DO Maye Bunting Work Phone: [facility] 01-11-2022 16:28-0400 Body temperature 97.6 [degF] DO Maye Bunting Work Phone: [facility] 01-11-2022 16:28-0400 Body weight 107.9 kg DO Maye Bunting Work Phone: [facility] 01-11-2022 16:28-0400 Diastolic blood pressure 97 mm[Hg] DO Maye Bunting Work Phone: [facility] 01-11-2022 16:28-0400 Heart rate 90 /min DO Maey Bunting Work Phone: [facility] 01-11-2022 16:28-0400 Respiratory rate 16 /min DO Maye Bunting Work Phone: [facility] 01-11-2022 16:28-0400 SaO2% (BldA) [Mass fraction] 98 % DO Maye Bunting Work Phone: [facility] 01-11-2022 16:28-0400 Systolic blood pressure 162 mm[Hg] DO Maye Bunting Work Phone: [facility] 12-19-2021 11:30-0400 Body height 182.88 cm Master Mauricio Other [facility] Other 12-19-2021 11:30-0400 Body mass index (BMI) [Ratio] 33.9 kg/m2 Master Mauricio Other [facility] Other 12-19-2021 11:30-0400 Body temperature 97 [degF] Master Mauricio Other [facility] Other 12-19-2021 11:30-0400 Body weight 113.4 kg Master Mauricio Other [facility] Other 12-19-2021 11:30-0400 Diastolic blood pressure 76 mm[Hg] Master Lawsonmoise Other [facility] Other 12-19-2021 11:30-0400 SaO2% (BldA) [Mass fraction] 97 % Master Lawsonmoise Other [facility] Other 12-19-2021 11:30-0400 Systolic blood pressure 150 mm[Hg] Master Lawsonmoise Other [facility] Other 12-06-2021 14:30-0400 Body height 182.88 cm Riya Pitt Other [facility] Other 12-06-2021 14:30-0400 Body temperature 97.9 [degF] Riya Pitt Other [facility] Other 12-06-2021 14:30-0400 Diastolic blood pressure 75 mm[Hg] Riya [place] Other [employer] Other 12-06-2021 14:30-0400 Systolic blood pressure 132 mm[Hg] Riya Pitt Other [employer] Other 12-05-2021 07:30-0400 Diastolic blood pressure 82 mm[Hg] Services [employer] Work Phone: [facility] 12-05-2021 07:30-0400 Heart rate 96 /min Services [employer] Work Phone: [facility] 12-05-2021 07:30-0400 SaO2% (BldA) [Mass fraction] 98 % Services [employer] Work Phone: [facility] 12-05-2021 07:30-0400 Systolic blood pressure 176 mm[Hg] Services [facility] Work Phone: [facility] 12-05-2021 06:01-0400 Respiratory rate 18 /min Services [facility] Work Phone: [facility] 12-05-2021 03:20-0400 Body temperature 97.6 [degF] Services [facility] Work Phone: [facility] 12-04-2021 19:42-0400 Body height 187.96 cm Services [facility] Work Phone: [facility] 12-04-2021 19:42-0400 Body weight 111.13 kg Services [facility] Work Phone: [facility] 11-21-2021 20:00-0400 Body temperature 97.6 [degF] Services [facility] Work Phone: [facility] 11-21-2021 20:00-0400 Diastolic blood pressure 81 mm[Hg] Services [facility] Work Phone: [facility] 11-21-2021 20:00-0400 Heart rate 104 /min Services [facility] Work Phone: [facility] 11-21-2021 20:00-0400 Respiratory rate 18 /min Services [facility] Work Phone: [facility] 11-21-2021 20:00-0400 SaO2% (BldA) [Mass fraction] 96 % Services [facility] Work Phone: [facility] 11-21-2021 20:00-0400 Systolic blood pressure 146 mm[Hg] Services [facility] Work Phone: [facility] 11-21-2021 06:00-0400 Body weight 107 kg Services [facility] Work Phone: [facility] 11-20-2021 14:54-0400 Body height 187.96 cm Services [facility] Work Phone: [facility] 09-25-2021 14:00-0400 Body height 182.88 cm Fawad Buehrer Other [employer] Other 09-25-2021 14:00-0400 Body mass index (BMI) [Ratio] 33.9 kg/m2 Fawad Rocha Other [employer] Other 09-25-2021 14:00-0400 Body temperature 98.4 [degF] Fawad Rocha Other [employer] Other 09-25-2021 14:00-0400 Body weight 113.4 kg Fawad Rocha Other [employer] Other 09-25-2021 14:00-0400 Diastolic blood pressure 74 mm[Hg] Fawad Mccallumclaire Other [employer] Other 09-25-2021 14:00-0400 SaO2% (BldA) [Mass fraction] 95 % Fawad Rocha Other [employer] Other 09-25-2021 14:00-0400 Systolic blood pressure 152 mm[Hg] Fawad Salinasreclaire Other [employer] Other 09-12-2021 16:20-0400 Diastolic blood pressure 90 mm[Hg] Services [employer] Work Phone: [facility] 09-12-2021 16:20-0400 Heart rate 95 /min Services [facility] [employer] Senior Work Phone: [facility] 09-12-2021 16:20-0400 Respiratory rate 18 /min Services [facility] [employer] Work Phone: [facility] 09-12-2021 16:20-0400 SaO2% (BldA) [Mass fraction] 98 % Services [facility] Work Phone: [facility] 09-12-2021 16:20-0400 Systolic blood pressure 145 mm[Hg] Services [facility] Work Phone: [facility] 09-12-2021 14:00-0400 Body temperature 98 [degF] Services [facility] Work Phone: [facility] 03-14-2021 12:00-0500 Body height 182.88 cm Johan Monterrosovaleriano Other [facility] [employer] Other 03-14-2021 12:00-0500 Body temperature 98.4 [degF] Johan Claudia Other [employer] Other 03-14-2021 12:00-0500 Diastolic blood pressure 89 mm[Hg] Johan Claudia Other [employer] Other 03-14-2021 12:00-0500 Respiratory rate 18 /min Johan Monterrosovaleriano Other [employer] Other 03-14-2021 12:00-0500 SaO2% (BldA) [Mass fraction] 98 % Johan Monterrosovaleriano Other [employer] Other 03-14-2021 12:00-0500 Systolic blood pressure 154 mm[Hg] Johan Claudia Other [employer] Other 01-24-2021 10:33-0400 Body height 187.96 cm Services [facility] Work Phone: [facility] 01-03-2021 12:20-0400 Body height 182.88 cm Johan Monterrosovaleriano Other [employer] Other 01-03-2021 12:20-0400 Body temperature 97.5 [degF] Johan Taylor Other [employer] Other 01-03-2021 12:20-0400 Diastolic blood pressure 90 mm[Hg] Johan Taylor Other [employer] Other 01-03-2021 12:20-0400 Respiratory rate 18 /min Johan Taylor Other [employer] Other 01-03-2021 12:20-0400 SaO2% (BldA) [Mass fraction] 98 % Johan Taylor Other [employer] Other 01-03-2021 12:20-0400 Systolic blood pressure 167 mm[Hg] Johan Taylor Other [employer] Other 06-26-2020 15:42-0400 Body weight 109.72 kg Services [facility] Work Phone: [facility] Encounters Encounter Date Encounter Type Care Provider Facility Start: 12-26-2023 ambulatory Kiko Corbett Facility:[facility] Start: 04-22-2023 End: 04-22-2023 ambulatory NON STAFF [facility] Work Phone: Start: 04-22-2023 End: 04-22-2023 TYSON Maddie Dillfany Work Phone: [facility] Work Phone: Start: 04-16-2023 End: 04-16-2023 ambulatory NON STAFF [facility] Work Phone: Start: 04-16-2023 End: 04-16-2023 TYSON Maddie Destiny Work Phone: [facility] Start: 04-08-2023 TYSON Maddie Mahin soto Work Phone: [facility] Work Phone: Start: 04-07-2023 End: 04-07-2023 ambulatory [facility] Work Phone: [facility] Work Phone: Start: 04-07-2023 End: 04-07-2023 Patient encounter procedure Services [facility] Work Phone: [facility] Work Phone: Start: 04-07-2023 End: 04-07-2023 TYSON Maddie Dixon Work Phone: [facility] Work Phone: Start: 04-07-2023 Registered Recurring Services [facility] Work Phone: [facility] Work Phone: Start: 04-02-2023 End: 04-02-2023 ambulatory Services [facility] Work Phone: [facility] Work Phone: Start: 04-02-2023 End: 04-02-2023 Patient encounter procedure Services [facility] Work Phone: [facility] [facility] Work Phone: Start: 04-02-2023 End: 04-02-2023 SLEEVE TAILORChristina Dixon Work Phone: [facility] [facility] Work Phone: Start: 03-25-2023 Registered Recurring Services [facility] Work Phone: [facility] Work Phone: Start: 03-19-2023 End: 03-19-2023 ambulatory Services [facility] Work Phone: [facility] Work Phone: Start: 03-19-2023 End: 03-19-2023 Departed Referred Services [facility] Work Phone: [facility] Work Phone: Start: 03-19-2023 End: 03-19-2023 SLEEVE TAILOR Maddie Dixon Work Phone: [facility] Work Phone: Start: 03-13-2023 End: 03-13-2023 ambulatory Services [facility] Work Phone: [facility] Work Phone: Start: 03-13-2023 End: 03-13-2023 Departed Referred Services [facility] Work Phone: [facility] Start: 03-13-2023 End: 03-13-2023 SLEEVE TAILOR Maddie Dixon Work Phone: [facility] Start: 03-12-2023 End: 03-12-2023 ambulatory Fawad Rocha Other [employer] Other Start: 03-12-2023 Telephone encounter Fawad MCCALL [place] Start: 03-11-2023 End: 03-11-2023 ambulatory Fawad Rocha Other [employer] Other Start: 03-11-2023 Office outpatient vi sit 25 minutes Fawad MCCALL [facility] Start: 03-04-2023 Registered Recurring Services [facility] Work Phone: [facility] Work Phone: Start: 03-04-2023 End: 03-04-2023 ambulatory Services [facility] Work Phone: [facility] Work Phone: Start: 03-04-2023 End: 03-04-2023 Patient encounter procedure Services [facility] Work Phone: [facility] Work Phone: Start: 03-04-2023 End: 03-04-2023 SLEEVE TAILOR Maddie Dixon Work Phone: [facility] Work Phone: Start: 02-24-2023 End: 02-24-2023 ambulatory Johna Taylor Other [facility] [employer] Other Start: 02-24-2023 Telephone encounter Johan Taylor [facility] Start: 02-13-2023 End: 02-13-2023 ambulatory Johan Taylor Other [facility] [employer] Other Start: 02-13-2023 Office outpatient vi sit 25 minutes Johan Taylor [facility] Start: 02-13-2023 Telephone encounter Johan Taylor [employer] Start: 02-07-2023 End: 02-07-2023 ambulatory BOAT OFFICER-C Emrvat E Spasic Work Phone: [facility] Work Phone: Start: 02-07-2023 End: 02-07-2023 Departed Referred Services [facility] Work Phone: [facility] Work Phone: Start: 02-07-2023 End: 02-07-2023 BOAT OFFICER-C Mervat Spasic Work Phone: [facility] Work Phone: Start: 01-29-2023 End: 01-29-2023 ambulatory BOAT OFFICER-C Mervat E Spasic Work Phone: [facility] Work Phone: Start: 01-29-2023 End: 01-29-2023 Departed Referred Services [facility] Work Phone: [facility] Work Phone: Start: 01-29-2023 End: 01-29-2023 BOAT OFFICER-C Mervat Spasic Work Phone: [facility] Work Phone: Start: 01-17-2023 End: 01-17-2023 ambulatory BOAT OFFICER-C Mervat E Spasic Work Phone: [facility] Work Phone: Start: 01-17-2023 End: 01-17-2023 BOAT OFFICER-C Mervat Spasic Work Phone: [facility] Work Phone: Start: 01-15-2023 End: 01-15-2023 ambulatory BOAT OFFICER-C Mervat E Spasic Work Phone: [facility] Work Phone: Start: 01-15-2023 End: 01-15-2023 Departed Referred Services [facility] Work Phone: [facility] Work Phone: Start: 01-15-2023 End: 01-15-2023 BOAT OFFICER-C Mervat Spasic Work Phone: [facility] Work Phone: Start: 01-03-2023 End: 01-03-2023 ambulatory BOAT OFFICER-C Mervat E Spasic Work Phone: [facility] Work Phone: Start: 01-03-2023 End: 01-03-2023 Patient encounter procedure Services [facility] Work Phone: [facility] Work Phone: Start: 01-03-2023 End: 01-03-2023 BOAT OFFICER-C Mervat Spasic Work Phone: [facility] Work Phone: Start: 12-30-2022 BOAT OFFICER-C Mervat Spa sic Work Phone: [facility] Work Phone: Start: 12-24-2022 End: 12-24-2022 ambulatory BOAT OFFICER-C Mervat E Spasic Work Phone: [facility] Work Phone: Start: 12-24-2022 End: 12-24-2022 Departed Referred Services [facility] Work Phone: [facility] Start: 12-24-2022 End: 12-24-2022 BOAT OFFICER-C Mervat Spasic Work Phone: [facility] Start: 12-19-2022 End: 12-20-2022 ambulatory Kiko Corbett Facility:[facility] Start: 12-19-2022 End: 12-19-2022 Patient encounter procedure Kiko Corbett [facility] Start: 12-13-2022 End: 12-13-2022 ambulatory BOAT OFFICER-C Mervat E Spasic Work Phone: [facility] Work Phone: Start: 12-13-2022 End: 12-13-2022 Departed Referred Services [facility] Work Phone: [facility] Work Phone: Start: 12-13-2022 End: 12-13-2022 BOAT OFFICER-C Mervat Spasic Work Phone: [facility] Work Phone: Start: 12-12-2022 End: 12-12-2022 ambulatory Johan Taylor Other [facility] [employer] Other Start: 12-12-2022 Office outpatient vi sit 25 minutes Johan Taylor [facility] Start: 11-27-2022 End: 11-27-2022 ambulatory BOAT OFFICER-C Mervat Ellen Spasic Work Phone: [facility] Work Phone: Start: 11-27-2022 End: 11-27-2022 BOAT OFFICER-C Mervat Spasic Work Phone: [facility] Work Phone: Start: 11-15-2022 End: 11-15-2022 ambulatory DO Maye Bunting Work Phone: [facility] Work Phone: Start: 11-15-2022 End: 11-15-2022 DO Maye Bunting Work Phone: [facility] Work Phone: Start: 11-07-2022 End: 11-07-2022 ambulatory Riya Pitt Other [employer] Other Start: 11-07-2022 Office outpatient vi sit 25 minutes Riya Pitt [facility] Start: 11-04-2022 DO Maye Bunt ing Work Phone: [facility] Work Phone: Start: 11-04-2022 End: 11-04-2022 ambulatory DO Maye Bunting Work Phone: [facility] Work Phone: Start: 11-04-2022 End: 11-04-2022 DO Maye Bunting Work Phone: [facility] Work Phone: Start: 10-22-2022 End: 10-24-2022 Evaluation and management of inpatient DO Maye Bunting Work Phone: [facility] Work Phone: Start: 10-22-2022 End: 10-24-2022 DO Maye Bunting Work Phone: [facility] [place] [facility] Work Phone: Start: 10-21-2022 End: 10-21-2022 Emergency department patient visit DO Maye Bunting Work Phone: [facility] Work Phone: Start: 10-21-2022 End: 10-21-2022 DO Maye Bunting Work Phone: [facility] Work Phone: Start: 10-17-2022 End: 10-17-2022 ambulatory Riya Pitt Other [facility] [employer] Other Start: 10-17-2022 Telephone encounter Riya Pitt [facility] Start: 10-16-2022 End: 10-16-2022 ambulatory DO Maye Bunting Work Phone: [facility] Work Phone: Start: 10-16-2022 End: 10-16-2022 DO Maye Bunting Work Phone: [facility] Work Phone: Start: 10-15-2022 End: 10-15-2022 Emergency department patient visit DO Maye Bunting Work Phone: [facility] Work Phone: Start: 10-15-2022 End: 10-15-2022 DO Maye Bunting Work Phone: [facility] Work Phone: Start: 10-13-2022 End: 10-13-2022 Emergency department patient visit DO Maye Bunting Work Phone: [facility] Work Phone: Start: 10-13-2022 End: 10-13-2022 DO Maye Bunting Work Phone: [facility] Work Phone: Start: 10-11-2022 End: 10-11-2022 ambulatory DO Maye Bunting Work Phone: [facility] Work Phone: Start: 10-11-2022 End: 10-11-2022 DO Maye Bunting Work Phone: [facility] Work Phone: Start: 10-09-2022 End: 10-09-2022 ambulatory DO Maye Bunting Work Phone: [facility] Work Phone: Start: 10-09-2022 End: 10-09-2022 DO Maye Bunting Work Phone: [facility] Work Phone: Start: 10-07-2022 DO Maye Bunt ing Work Phone: [facility] Work Phone: Start: 10-03-2022 End: 10-03-2022 ambulatory DO Maye Bunting Work Phone: [facility] Work Phone: Start: 10-03-2022 End: 10-03-2022 DO [facility] Bunting [facility] Start: 10-02-2022 End: 10-02-2022 ambulatory DO Maye Bunting Work Phone: [facility] Work Phone: Start: 10-02-2022 End: 10-02-2022 DO Maye Bunting Work Phone: [facility] Work Phone: Start: 09-23-2022 Telephone encounter Bri Velazquez INTERVENTIONAL RADIOLOGY Comment on above: tube removal Start: 09-12-2022 End: 09-13-2022 ambulatory Kiko Corbett Facility: [facility] Start: 09-12-2022 End: 09-12-2022 Patient encounter procedure Kiko Corbett [facility] Start: 09-10-2022 Evaluation and management of inpatient DO Maye Bunting Work Phone: [facility] Work Phone: Start: 09-10-2022 End: 09-12-2022 DO Maye Bunting Work Phone: [facility]-[address] [place] [address] Surgical Work Phone: Start: 08-29-[address] Maye Murray Facility:[id number] Start: 08-29-2022 End: 08-31-2022 Evaluation and management of inpatient Obayheron Jones Facility:[facility] Start: 08-29-2022 End: 08-31-2022 DO Maye Bunting Work Phone: [facility] [place] [address] Surgical Work Phone: Start: 08-27-2022 End: 08-27-2022 Emergency department patient visit Srinivas Renard Aguilar Facility:[facility] Start: 08-27-2022 End: 08-27-2022 DO Maye Bunting Work Phone: [facility] Work Phone: Start: 08-20-2022 End: 08-20-2022 ambulatory Mervat Santiago Facility:[facility] Start: 08-20-2022 End: 08-20-2022 DO Maye Bunting Work Phone: [facility] Start: 08-16-2022 End: 08-17-2022 ambulatory LIAM GAYLE Facility: Start: 08-09-2022 ambulatory Mervat Santiago Facility :[facility] Start: 08-09-2022 DO Maye Bunt ing [facility] Work [facility]: Start: 08-01-2022 End: 08-02-2022 ambulatory Kiko Corbett Facility: [facility] Start: 08-01-2022 End: 08-01-2022 Patient encounter procedure Kiko Corbett [facility] Start: 07-24-2022 Telephone encounter Nathen kunz APRN.NETWORK CONTROL TECHNICIAN Work Phone: Provider Adult Comment on above: Returning Patient's Call Start: 07-19-2022 End: 07-19-2022 ambulatory DO Maye Bunting Work Phone: [facility] Work Phone: Start: 07-19-2022 End: 07-19-2022 Registered Recurring DO Maye Bunting Work Phone: [facility] Work Phone: Start: 07-17-2022 Telephone encounter Arden griffith MD Work Phone: [facility] Provider Adult Comment on above: [employer] - E D Follow Up Start: 07-17-2022 End: 07-18-2022 ambulatory SHELDON DE LEON Facility:[facility] Start: 07-16-2022 End: 07-17-2022 Emergency department patient visit DO Maye Bunting Work Phone: [facility]Emer[facility] Work Phone: Start: 07-16-2022 End: 07-17-2022 DO Maye Bunting Work Phone: [facility] Work Phone: Start: 07-05-2022 Registered Recurring DO Maye Bunting Work Phone: [facility] Work Phone: Start: 07-04-2022 End: 07-04-2022 ambulatory Maye Bunting Facility:[facility] Start: 07-04-2022 End: 07-04-2022 ambulatory DO Maye Bunting Work Phone: [facility] Work Phone: Start: 07-04-2022 End: 07-04-2022 Departed Referred DO Maye Bunting Work Phone: [facility] Work Phone: Start: 07-04-2022 End: 07-04-2022 DO Maye Bunting Work Phone: [facility] Work Phone: Start: 07-01-2022 End: 07-01-2022 ambulatory RIYA ARAMBULA [facility] Start: 06-21-2022 Registered Recurring DO Maye Bunting [facility] Work [facility]: Start: 06-20-2022 End: 06-20-2022 ambulatory Maye Bunting Facility:[facility] Start: 06-20-2022 End: 06-20-2022 ambulatory DO Maye Bunting Work Phone: [facility] Work Phone: Start: 06-20-2022 End: 06-20-2022 Departed Referred DO Maye Bunting Work Phone: [facility] Work Phone: Start: 06-20-2022 End: 06-20-2022 DO Maye Bunting Work Phone: [facility] Work Phone: Start: 06-07-2022 End: 06-08-2022 ambulatory Kikoroma Corbett Facility:[facility] Start: 06-07-2022 End: 06-07-2022 Patient encounter procedure Kiko Corbett [facility] Start: 06-03-2022 Registered Recurring DO Maye Bunting Work Phone: [facility] Work Phone: Start: 05-21-2022 End: 05-21-2022 Follow-up encounter Angio 1 Work Phone: Radiology Comment on above: Radiology IR (Follow up nephrostomy tube placement) Start: 05-21-2022 End: 05-21-2022 Patient encounter procedure Angio Room 1 Work Phone: [facility] Start: 05-08-2022 Orders Only Bri Fair [facility] INTER VENTIONAL RADIOLOGY Comment on above: Hydronephrosis, unsp ecified hydronephrosis type (Primary Dx) Start: 05-06-2022 End: 05-06-2022 ambulatory ALEJANDRO BEE Facility:[facility] Start: 05-03-2022 Telephone encounter Mile Birmingham RN [facility] Radiology Procedure Comment on above: Appointment Start: 05-03-2022 End: 05-03-2022 ambulatory ALEJANDRO BEE Facility:[facility] Start: 04-26-2022 End: 04-27-2022 ambulatory Kikoroma Corbett Facility: [facility] Start: 04-26-2022 End: 04-26-2022 Patient encounter procedure Kiko Corbett [facility] Start: 04-23-2022 Telephone encounter Matthew Maki RN [facility] Radiology Procedure Comment on above: Radiology Pre Proced ure Instructions Start: 04-22-2022 End: 04-22-2022 ambulatory DO Maye Bunting Work Phone: [facility] Work Phone: Start: 04-22-2022 End: 04-22-2022 Registered Recurring DO Maye Bunting Work Phone: [facility] Work Phone: Start: 04-09-2022 End: 04-09-2022 ambulatory Kiko M Lue Facility:[facility] Start: 04-09-2022 End: 04-09-2022 Admission to same day surgery center DO Maye Bunting Work Phone: [facility] Start: 04-09-2022 End: 04-10-2022 ambulatory DO Maye Bunting Work Phone: [facility] Work Phone: Start: 04-05-2022 Registered Recurring DO Maye Bunting Work Phone: [facility] Work Phone: Start: 03-22-2022 End: 03-22-2022 ambulatory Maye Bunting Facility:[facility] Start: 03-21-2022 End: 03-21-2022 ambulatory DO Maye Bunting Work Phone: [facility] Work Phone: Start: 03-21-2022 End: 03-21-2022 Patient encounter procedure DO Maye Bunting Work Phone: [facility] Start: 03-14-2022 Chart Update Maye R Danati ng Work Phone: [facility] [address] DO Work Phone: Start: 03-14-2022 End: 03-14-2022 ambulatory Kiko M Lue Facility:[facility] Start: 03-14-2022 End: 03-14-2022 ambulatory DO Maye Bunting Work Phone: [facility] Work Phone: Start: 03-14-2022 End: 03-14-2022 Patient encounter procedure DO Maye Bunting Work Phone: [facility] Start: 03-08-2022 Registered Recurring DO Maye Bunting Work Phone: [facility] Start: 03-08-2022 End: 03-08-2022 ambulatory Maye Murray Facility:[facility] Start: 03-08-2022 End: 03-08-2022 ambulatory DO Maye Bunting Work Phone: [facility] Work Phone: Start: 03-08-2022 End: 03-08-2022 Departed Referred DO Maye Bunting Work Phone: [facility] Start: 03-08-2022 End: 03-08-2022 Patient encounter procedure DO Maye Bunrina Work Phone: [facility]-Outpatient Registration Start: 03-07-2022 AUDIT Maye Cuba ng Work Phone: -[facility] DO Work Phone: Start: 03-05-[address] Maye Murray Facility:[id number] Start: 03-05-2022 [facility] [place], Provider: Brandan Heller, Status: Pen, Time: 1:00 PM Maye Murray Work Phone: [facility] Work Phone: Start: 03-05-2022 End: 03-05-2022 ambulatory Renata Wyatt Facility:[facility] Start: 03-05-2022 End: 03-05-2022 ambulatory DO Maye Bunrina Work Phone: [facility] Work Phone: Start: 03-05-2022 End: 03-05-2022 Patient encounter procedure DO Maye Murray Work Phone: [facility]Electrodiagnostics Start: 03-05-[address] Maye Murray Facility:[id number] Start: 02-26-2022 ambulatory Kiko Corbett Facility:C [id number] Start: 02-22-2022 Registered Recurring DO Maye Bunting Work Phone: [facility] Start: 02-21-2022 Office consultation new/estab patient 60 min Maye R Bunting Work Phone: [facility] [address] DO Work Phone: Start: 02-21-2022 Office outpatient ne w 45 minutes Maye R Bunting Work Phone: [facility] Work Phone: Start: 02-21-2022 Patient encounter procedure Maye R Bunting Work Phone: [facility] [address] DO Work Phone: Start: 02-21-[address] Maye Murray Facility: Start: 01-31-2022 End: 01-31-2022 ambulatory Johan Taylor Other [facility] [employer] Other Start: 01-31-2022 Office outpatient vi sit 25 minutes Johan Taylor [facility] Nephrology Start: 01-15-2022 End: 01-15-2022 ambulatory Kiko Corbett Facility:[facility] Start: 01-15-2022 End: 01-15-2022 Departed Referred DO Maye Bunting Work Phone: [facility] Start: 01-11-2022 End: 01-11-2022 ambulatory Kiko Corbett Facility:[facility] Start: 01-11-2022 End: 01-11-2022 ambulatory DO Ivan Springer Work Phone: [facility] Work Phone: Start: 01-11-2022 End: 01-11-2022 Patient encounter procedure DO Ivan Springer Work Phone: [facility]Pre-Surgical Testing Start: 01-11-2022 Registered Recurring DO Ivan Springer Work Phone: [facility] Start: 12-19-2021 End: 12-19-2021 ambulatory Travon Paz [facility] [employer] Other Start: 12-19-2021 Office outpatient vi sit 15 minutes Master Mauricio [facility] Start: 12-14-2021 End: 12-14-2021 ambulatory Aziz Bakhous Other [employer] Other Start: 12-14-2021 Telephone encounter Aziz Bakhous [facility] Start: 12-07-2021 End: 12-07-2021 Patient encounter procedure Kiko Corbett [facility] Start: 12-06-2021 End: 12-06-2021 ambulatory Riya Pitt Other [place] [employer] Other Start: 12-06-2021 Office outpatient vi sit 25 minutes Riya Pitt [facility] Start: 12-05-2021 Registered Recurring Services [employer] Work Phone: [facility] Start: 12-05-2021 End: 12-05-2021 ambulatory Kiko Corbett Facility:[facility] Start: 12-05-2021 End: 12-05-2021 Patient encounter procedure Services [employer] Work Phone: [facility]Ul[facility] Start: 12-04-2021 End: 12-05-2021 Emergency department patient visit Ramakrishna Sandoval Facility:[facility] Start: 12-04-2021 End: 12-05-2021 Emergency department patient visit Services [employer] Work Phone: [facility]Emergency Room Start: 11-30-2021 End: 11-30-2021 ambulatory Aziz Bakhous Other [employer] Other Start: 11-30-2021 Telephone encounter Sohailtigre Lupe [facility] Start: 11-14-2021 End: 11-21-2021 Evaluation and management of inpatient Maye Bunting Facility:[facility] Start: 11-14-2021 End: 11-21-2021 Evaluation and management of inpatient Services [facility] Work Phone: [facility] [place] [facility] Start: 09-25-2021 End: 09-25-2021 ambulatory Fawad Rocha Other [employer] Other Start: 09-25-2021 Office outpatient vi sit 25 minutes Fawad Rocha [facility] Vascular Surgery Start: 09-13-2021 End: 09-13-2021 ambulatory Bhakti Ochoa Facility:[facility] Start: 09-13-2021 End: 09-13-2021 Patient encounter procedure Services [facility] Work Phone: [facility] Start: 07-02-2021 End: 07-02-2021 ambulatory Olga Lidia Oteror Other [employer] Other Start: 07-02-2021 Telephone encounter Olga Lidia Oteror [facility] Start: 03-14-2021 End: 03-14-2021 ambulatory Johan Taylor Other [employer] Other Start: 03-14-2021 Office outpatient vi sit 25 minutes Johan Taylor [facility] Nephrology Start: 01-03-2021 Office outpatient vi sit 25 minutes Johan Taylor [facility] Nephrology Patient encounter status Maye R Bunting Work Phone: [facility] [address] DO Work Phone: Procedures Date Procedure Procedure Detail Performing Clinician Start: 04-16-2023 Arteriovenous fistulization SLEEVE TAILOR Maddie Dixon Work Phone: Start: 03-04-2023 [facility] Work Phone: Start: 01-03-2023 Ultrasonography of liver BOAT OFFICER-C Mervat Santiago Work Phone: Start: 10-22-2022 Blood culture for ba cteria, including anaerobic screen DO Maye Bunting Work Phone: Start: 10-21-2022 Blood culture for ba cteria, including anaerobic screen DO Maye Bunting Work Phone: Start: 10-13-2022 Aerobic microbial culture DO Maye Bunting Work Phone: Start: 10-13-2022 Blood culture for ba cteria, including anaerobic screen DO Maye Bunting Work Phone: Start: 10-13-2022 DO Maye Bunting Work Phone: Start: 10-13-2022 X-ray of right foot DO Maye Bunting Work Phone: Start: 09-10-2022 Aerobic microbial culture DO Maye Bunting Work Phone: Start: 09-10-2022 Blood culture for ba cteria, including anaerobic screen DO Maye Bunting Work Phone: Start: 08-30-2022 MRI of right foot DO Da rrin Bunting Work Phone: Start: 08-30-2022 MRI of lower leg DO Chan rin Bunting Work Phone: Start: 08-30-2022 DO Maye Bunting Work Phone: Start: 08-30-2022 Blood culture for ba cteria, including anaerobic screen DO Maye Bunting Work Phone: Start: 08-29-2022 Ultrasonography of b ilateral kidneys DO Maye Bunting Work Phone: Start: 08-27-2022 Blood culture for ba cteria, including anaerobic screen DO Maye Bunting Work Phone: Start: 08-27-2022 DO Maye [employer] Work Phone: Start: 08-27-2022 X-ray of right foot DO [employer] Work Phone: Start: 08-20-2022 Aerobic microbial culture DO Maye [employer] Work Phone: Start: 07-17-2022 Blood culture for ba cteria, including anaerobic screen DO [employer] Work Phone: Start: 07-17-2022 SARS Antigen (LFIA) DO [employer] Work Phone: Start: 07-17-2022 DO Maye [employer] Work Phone: Start: 07-17-2022 CT of abdomen and pe lvis without contrast DO [employer] Work Phone: Start: 04-09-2022 Cystoscopy DO [employer] Work Phone: Start: 04-09-2022 Diagnostic radiograp hy of abdomen DO [employer] Work Phone: Start: 04-09-2022 Cystoscopy Kiko Corbett Start: 03-14-2022 Ultrasonography of b ilateral kidneys DO [employer] Work Phone: Start: 03-05-2022 Radionuclide myocard ial perfusion stress study DO [employer] Work Phone: Start: 12-05-2021 Ultrasonography of b ilateral kidneys Services [facility] [employer] Work Phone: Start: 12-05-2021 Antibody screen [employer] Comment on above: Order Comment: Numbe r of units to transfuse now? 2 Result Comment: PERF ORMED BY:[id number] [place] [phone] MEDICAL DIRECTORCHRISTO PINO M.D. Start: 11-21-2021 Plain chest X-ray [facility] [employer] Work Phone: Start: 11-19-2021 CT of abdomen and pe lvis without contrast Services [facility] [employer] Work Phone: Start: 11-15-2021 Antibody screen Maye Murray Comment on above: Result Comment: PERF ORMED BY:[facility] [place], [place] [phone] MEDICAL DIRECTORCHRISTO PINO M.D. Start: 11-15-2021 CT of abdomen and pe lvis without contrast Services [facility] [employer] Work Phone: Start: 11-15-2021 MRI of right foot [facility] [employer] Work Phone: Start: 11-14-2021 [facility] Work Phone: Start: 09-13-2021 MRI of right foot [facility] [employer] Work Phone: Start: 05-25-2020 Cystoscopy Kiko Corbett Start: 04-07-2019 Total colonoscopy Darri n R Bunrina Work Phone: Start: 05-09-2017 Cystoscopy Kiko Corbett Amputation of toe Maye R B demetrio Work Phone: Comment on above: left foot; Appendectomy Maye R Buntin g Work Phone: Blood culture for ba cteria, including anaerobic screen Services [facility] [employer] Work Phone: H/O splenectomy S/P splenectomy Maye R Bunting Work Phone: Operative procedure on foot Maye R Bunting Work Phone: Repair of musculoten dinous cuff of shoulder Maye R Bunting Work Phone: Comment on above: right; SARS Antigen (LFIA) Services [facility] [employer] Work Phone: Splenectomy Maye R Buntin g Work Phone: Urine culture Services [facility] Senior Work Phone: Plan of Treatment Date Care Activity Detail Author Start: 05-06-2025 DIABETES SCREEN DIABETES SCREEN [facility] Start: 07-19-2023 HEMOGLOBIN/HEMATOCRIT HEMOGLOBIN/HEM ATOCRIT [facility] Start: 07-19-2023 SERUM CREATININE SERUM CREATININE [facility] Start: 07-18-2023 HEMOGLOBIN/HEMATOCRIT HEMOGLOBIN/HEM ATOCRIT [facility] Start: 07-18-2023 SERUM CREATININE SERUM CREATININE [facility] Start: 05-06-2023 [facility]: [facility]-06-[facility]23 SERUM CREATININE SERUM CREATININE [facility] Start: 04-22-2023 [facility] Start: 04-16-2023 [facility] Start: 04-16-2023 [facility] Start: 04-08-2023 [facility] Start: 03-26-2023 [facility] Start: 03-25-2023 [facility] Start: 03-25-2023 [facility] Start: 03-21-2023 [facility] Start: 03-17-2023 [facility] Start: 03-04-2023 US angiography US map hemodia l access SUSAN [facility] Start: 03-04-2023 US Unspecified body region [facility] Start: 03-03-2023 [facility] Start: 02-20-2023 [facility] Start: 02-14-2023 [facility] Start: 01-31-2023 [facility] Start: 01-31-2023 [facility] Start: 01-16-2023 End: 01-17-2023 [facility] Start: 01-08-2023 [facility] Start: 12-30-2022 [facility] Start: 12-16-2022 [facility] Start: 12-16-2022 [facility] Start: 12-02-2022 [facility] Start: 12-02-2022 [facility] Start: 11-18-2022 [facility] Start: 11-04-2022 [facility] Start: 10-30-2022 [facility] Start: 10-27-2022 Blood chemistry [facility] Start: 10-27-2022 [facility] Start: 10-26-2022 Blood chemistry [facility] Start: 10-26-2022 [facility] Start: 10-25-2022 Blood chemistry [facility] Start: 10-25-2022 [facility] Start: 10-24-2022 Blood chemistry [facility] Start: 10-24-2022 End: 10-24-2022 [facility] Start: 10-23-2022 Administration of prophylactic treatment [facility] Start: 10-23-2022 Blood chemistry [facility] Start: 10-23-2022 [facility] Start: 10-22-2022 Hospital admission [facility] Start: 10-22-2022 Referral to infectio us diseases physician [facility] Start: 10-22-2022 End: 10-22-2022 [facility] Start: 10-22-2022 Blood culture for bacteria, including anaerobic screen [facility] Start: 10-21-2022 Blood culture for bacteria, including anaerobic screen [facility] Start: 10-21-2022 [facility] Start: 10-21-2022 [facility] Start: 10-15-2022 Blood chemistry [facility] Start: 10-15-2022 [facility] Start: 10-13-2022 Aerobic microbial culture [facility] Start: 10-13-2022 Blood culture for bacteria, including anaerobic screen [facility] Start: 10-13-2022 [facility] Start: 10-07-2022 [facility] Start: 10-07-2022 [facility] Start: 09-12-2022 [facility] Start: 09-11-2022 Administration of prophylactic treatment [facility] Start: 09-10-2022 Referral to infectio us diseases physician [facility] Start: 09-10-2022 Hospital admission [facility] Start: 09-10-2022 Referral to inspector packer [facility] Start: 09-10-2022 Referral to vascular surgeon [facility] Start: 09-10-2022 Referral to manager freelance [facility] Start: 09-10-2022 End: 09-10-2022 [facility] Start: 09-10-2022 Insertion of Infusio n Device into Superior Vena Cava, Percutaneous Approach [facility] Start: 08-30-2022 Referral to urologist [facility] Start: 08-29-2022 Referral to manager freelance [facility] Start: 08-29-2022 Referral to infectio us diseases physician [facility] Start: 08-29-2022 Referral to inspector packer [facility] Start: 08-29-2022 Hospital admission [facility] Start: 08-09-2022 [facility] Start: 08-09-2022 [facility] Start: 08-02-2022 [facility] Start: 07-23-2022 [facility] Start: 07-19-2022 [facility] Start: 07-17-2022 Bacteria identified in Blood by Culture Blood Culture [facility] Start: 07-17-2022 Blood culture for bacteria, including anaerobic screen Blood Culture [facility] Start: 07-05-2022 [facility] Start: 07-05-2022 [facility] Start: 06-21-2022 [facility] Start: 06-17-2022 End: 06-17-2022 [facility] Start: 06-03-2022 [facility] Start: 06-03-2022 [facility] Start: 05-20-2022 [facility] Start: 05-09-2022 End: 05-10-2022 [facility] Start: 04-22-2022 [facility] Start: 04-16-2022 End: 04-16-2022 [facility] Start: 04-09-2022 [facility] Start: 04-09-2022 [facility] Start: 04-07-2022 ADVANCE DIRECTIVE DISCUSSION ADVANCE DIRECTIVE DISCUSSION [facility] Start: 04-07-2022 DEPRESSION ASSESSMENT DEPRESSION ASS ESSMENT [facility] Start: 04-05-2022 [facility] Start: 03-21-2022 End: 03-22-2022 [facility] Start: 03-08-2022 [facility] Start: 03-05-2022 [facility], Provider: Brandan Heller, Status: Pen, Time: 1:00 PM [facility], Provider: Brandan Heller, Status: Pen, Time: 1:00 PM -[facility] 250 DO Work Phone: Start: 03-05-2022 [facility] Start: 03-05-2022 Radionuclide myocard ial perfusion stress study NM mateo perf SPECT rest & str [facility] Start: 03-05-2022 SPECT Heart perfusio n at rest and W stress and W radionuclide IV [facility] Start: 02-22-2022 [facility] Start: 02-11-2022 [facility] Start: 02-08-2022 [facility] Start: 01-25-2022 [facility] Start: 01-15-2022 Cystoscopy [facility] Start: 01-11-2022 [facility] Start: 12-28-2021 [facility] Start: 12-14-2021 [facility] Start: 12-06-2021 Influenza vaccination INFLUENZA (#1) [facility] Start: 12-05-2021 Registered Recurring Anemia Fi [facility] Start: 12-05-2021 [facility] Work Phone: Start: 12-05-2021 Ultrasonography of bilateral kidneys US renal BI [facility] Start: 12-05-2021 End: 12-05-2021 Patient encounter procedure Departed Clinical [facility] Start: 12-04-2021 End: 12-05-2021 Emergency department patient visit Departed Emergency [facility] Start: 11-30-2021 [facility] Start: 11-28-2021 [facility] Start: 11-21-2021 [facility] Start: 11-21-2021 Referral to clinical benzene worker [facility] Start: 11-19-2021 Referral to urologist [facility] Start: 11-19-2021 Insertion of periphe rally inserted central catheter [facility] Start: 11-18-2021 Referral to infectio us diseases physician [facility] Start: 11-16-2021 [facility] Start: 11-15-2021 Administration of prophylactic treatment [facility] Start: 11-14-2021 Hospital admission [facility] Start: 11-14-2021 Referral to inspector packer [facility] Start: 11-14-2021 Referral to manager freelance [facility] Start: 11-14-2021 Referral to vascular surgeon [facility] Start: 11-14-2021 Drainage of Bladder with Drainage Device, Via Natural or Artificial Opening Drainage of Bladder with Drainage Device, Via Natural or Artificial Opening [facility] Start: 11-14-2021 Insertion of Intralu brenda Device into Inferior Vena Cava, Percutaneous Approach Insertion of Intraluminal Device into Inferior Vena Cava, Percutaneous Approach [facility] Start: 11-01-2021 [facility] Start: 10-23-2021 End: 10-23-2021 [facility] Start: 10-19-2021 [facility] Start: 10-03-2021 [facility] Start: 09-19-2021 [facility] Start: 09-12-2021 [facility] Start: 09-10-2021 [facility] Start: 09-05-2021 [facility] Start: 09-05-2021 [facility] Start: 08-31-2021 End: 08-31-2021 [facility] Start: 08-31-2021 End: 08-31-2021 [facility] Start: 08-24-2021 DIABETES SCREEN DIABETES SCREEN [facility] Start: 08-17-2021 [facility] Start: 07-20-2021 [facility] Start: 06-21-2021 [facility] Start: 06-12-2021 [facility] Start: 06-07-2021 [facility] Start: 05-30-2021 [facility] Start: 04-27-2021 [facility] Start: 04-23-2021 [facility] Start: 04-17-2021 COVID-19 VACCINE (4 - Booster for Moderna series) COVID-19 VACCINE (4 - Booster for Moderna series) [facility] Start: 03-22-2021 [facility] Start: 02-26-2021 [facility] Start: 02-22-2021 [facility] Start: 01-24-2021 [facility] Start: 12-12-2020 [facility] Start: 10-13-2020 [facility] Start: 10-06-2020 [facility] Start: 09-27-2020 [facility] Start: 09-21-2020 [facility] Start: 09-15-2020 [facility] Start: 09-05-2020 [facility] Start: 08-25-2020 [facility] Start: 08-25-2019 SERUM CREATININE SERUM CREATININE [facility] Start: 2015 PNEUMOCOCCAL: 65+ (1 - PCV) PNEUMOCOCCAL: 65+ (1 - PCV) [facility] Start: 2000 SHINGRIX VACCINE (1 of 2) RASHEED GRIX VACCINE (1 of 2) [facility] Start: 1995 COLOGUARD (FIT-DNA) COLOGUARD (FIT-D NA) [facility] Start: 1995 Colonoscopy COLONOSCOPY [facility] Start: 1995 COLORECTAL CANCER SCREENING COLORECTAL CANCER SCREENING [facility] Start: [address] COLONOGRAPHY [facility] Start: 1995 FECAL OCCULT BLOOD FECAL OCCULT BLOO D [facility] Start: 1995 SIGMOIDOSCOPY SIGMOIDOSCOPY [facility] Start: 1985 LIPID SCREEN LIPID SCREEN [facility] Start: 1969 Urine microalbumin profile DTAP,TDAP,TD (1 - Tdap) [facility] Start: 1968 ANNUAL PCP TEAM [employer] MANAGER TRAV DISEASE VISIT ANNUAL PCP TEAM CHRONIC DISEASE VISIT [facility] Start: 1968 Hepatitis B surface antibody level LDL CHOLESTEROL [facility] Start: 1968 HEPATITIS C SCREENING HEPATITIS C SC MINA [facility] Start: 1960 3 comp foot exam completed DIABETIC FOOT EXAM [facility] Start: 1960 Hepatitis C antibody , confirmatory test DILATED RETINAL EXAM [facility] Start: 1956 PNEUMOCOCCAL: 65+ (1 - PCV) PNEUMOCOCCAL: 65+ (1 - PCV) [facility] Start: 1955 Hemoglobin A1c/Hemoglobin.total in Blood HBA1C [facility] Start: 1950 COVID-19 VACCINE (#1) COVID-19 VACCI NE (#1) [facility] Start: 1950 ABDOMINAL AORTIC ANE URYSM SCREENING ABDOMINAL AORTIC ANEURYSM SCREENING [facility] Bacteria identified in Blood by Culture [facility] Bacteria identified in Blood by Culture [facility] Bacteria identified in Unspecified specimen by Aerobe culture [facility] Basophils [#/volume] in Blood by Automated count [facility] Basophils/100 leukoc ytes in Blood by Automated count [facility] Blood chemistry [facility] Comprehensive metabo lic 1999 panel - Serum or Plasma [facility] Work Phone: Comprehensive metabo lic 1999 panel - Serum or Plasma [facility] Comprehensive metabo lic 1999 panel - Serum or Plasma [facility] Comprehensive metabo lic 1999 panel - Serum or Plasma [facility] Comprehensive metabo lic 1999 panel - Serum or Plasma [facility] Comprehensive metabo lic 1999 panel - Serum or Plasma [facility] Comprehensive metabo lic 1999 panel - Serum or Plasma [facility] Comprehensive metabo lic 1999 panel - Serum or Plasma [facility] Comprehensive metabo lic 1999 panel - Serum or Plasma [facility] Comprehensive metabo lic 1999 panel - Serum or Plasma [facility] Comprehensive metabo lic 1999 panel - Serum or Plasma [facility] Comprehensive metabo lic 1999 panel - Serum or Plasma [facility] Comprehensive metabo lic 1999 panel - Serum or Plasma [facility] Eosinophils [#/volum e] in Blood [facility] Eosinophils/100 leukocytes in Blood by Automated count [facility] Erythrocyte distribu tion width [Ratio] by Automated count [facility] Erythrocytes [#/volu me] in Blood [facility] Ferritin [Mass/volum e] in Serum or Plasma [facility] Hematocrit [Volume Fraction] of Blood [facility] Hemoglobin [Mass/vol ume] in Blood [facility] End: 05-08-2023 IR NEPH TUBE CHANGE IR NEPH TUBE CHANGE Radiology Routine Hydronephrosis, unspecified hydronephrosis type Every 2 months for 6 Occurrences starting 05/08/2022 until 05/08/2023 [facility] Work Phone: Comment on above: Every 2 months for 6 Occurrences starting 05/08/2022 until 05/08/2023 Leukocytes [#/volume ] corrected for nucleated erythrocytes in Blood by Automated coun [facility] Leukocytes [#/volume ] in Blood [facility] Lymphocytes [#/volum e] in Blood by Automated count [facility] Lymphocytes/100 leukocytes in Blood by Automated count [facility] MCH [Entitic mass] b y Automated count [facility] MCHC [Mass/volume] b y Automated count [facility] MCV [Entitic volume] by Automated count [facility] Monocytes [#/volume] in Blood by Automated count [facility] Monocytes/100 leukoc ytes in Blood by Automated count [facility] Neutrophils [#/volum e] in Blood by Automated count [facility] Neutrophils/100 leukocytes in Blood by Automated count [facility] Nucleated erythrocyt es [Presence] in Blood by Automated count [facility] Patient Education [facility] Work Phone: Patient referral [facility] Work Phone: Platelet mean volume [Entitic volume] in Blood by Automated count [facility] Platelets [#/volume] in Blood [facility] [place] [facility] Immunizations Immunization Date Immunization Notes Care Provider Jason salomon 01-21-2022 influenza virus vaccine, unspecified formulation Kiko Corbett [facility] 01-21-2022 influenza, high dose seasonal, preservative-free Maye R Bunting Work Phone: -[facility] 250 DO Work Phone: Comment on above: Series: 02-20-2021 SARS-CoV-2 (COVID-19 ) mRNA-1273 vaccine Kiko Lue [facility] 01-30-2021 influenza, unspecifi ed formulation Kiko Lue [facility] 09-05-2020 SARS-CoV-2 (COVID-19 ) mRNA-1273 vaccine Kiko Lue [facility] 08-03-2020 SARS-CoV-2 (COVID-19 ) mRNA-1273 vaccine Kiko Lue [facility] Payers Date Payer Category Payer Private Health Insurance [id number] 2020 Self-pay [id number] 2018 Medicaid [place] [id number] 2018-Present [phone] [address] [place] [address] Medicaid [id number] 2007 Medicare [id number] 2007 Medicare [id number] 1959 Medicaid [id number] 1959 Medicare [id number] 1950 Unknown [id number] 2.16.840.1.103064.3.579.2.5 93 1950 Unknown [id number] 2.16.840.1.238529.3.579.2.3 56 1950 Unknown [id number] 2.16.840.1.921356.3.579.2.3 56 1950 Unknown [id number] 2.16.840.1.469653.3.579.2.3 56 1950 Unknown [id number] 2.16.840.1.183743.3.579.2.3 56 1950 Unknown [id number] 2.16.840.1.910566.3.579.2.3 56 1950 Unknown [id number] 2.16.840.1.341873.3.579.2.7 27 1950 Unknown [id number] 2.16.840.1.165005.3.579.2.7 27 1950 Unknown [id number] 2.16.840.1.738100.3.579.2.7 27 1950 Unknown [id number] 2.16.840.1.898055.3.579.2.7 27 1950 Unknown [id number] 2.16.840.1.607558.3.579.2.7 27 1950 Unknown [id number] 2.16.840.1.942648.3.579.2.7 27 1950 Unknown [id number] 2.16.840.1.279741.3.579.2.7 27 Unknown Unknown [id number] 2.16.840.1.615237.3.579.2.5 31 Unknown [id number] 2.16.840.1.312847.3.579.2.5 31 Unknown [id number] 2.16.840.1.636803.3.579.2.5 31 Unknown [id number] 2.16.840.1.867706.3.579.2.5 31 Unknown [id number] 2.16.840.1.743450.3.579.2.5 31 Unknown [id number] 2.16.840.1.267741.3.579.2.5 31 Unknown [id number] 2.16.840.1.855038.3.579.2.5 31 Unknown [id number] 2.16.840.1.351244.3.579.2.5 31 Unknown [id number] 2.16.840.1.543258.3.579.2.5 31 Unknown [id number] 2.16.840.1.116557.3.579.2.5 31 Unknown [id number] 2.16.840.1.484990.3.579.2.5 31 Unknown [id number] 31 Unknown [id number] 31 Unknown [id number] 31 Unknown [id number] 31 Unknown [id number] 31 Unknown [id number] 31 Unknown [id number] 31 Social History Date Type Detail Facility Unknown if ever smoked [facility] Other Sex Assigned At [facility] Other Start: 12-04-2021 End: 04-18-2023 Tobacco smoking status NHIS Smoker (finding) [facility] Start: 1950 Sex Assigned At Male [facility] Start: 11-19-2018 End: 06-07-2022 Tobacco smoking status Light tobacco smoker (finding) [facility] Start: 08-08-2015 Caffeine use Caffeine use [facility] DO Work Phone: Comment on above: a lot of pop; daily basis at home, none now at [facility]; 1 pack every 3 days; Start: 08-08-2015 Tobacco smoking status NHIS Smokes tobacco daily [facility] History of tobacco use Cigarette Smoker [facility] Start: 08-08-2015 Tobacco use and exposure Smokeless tobacco non-user [facility] Start: 11-23-2021 Alcohol intake Current drinke r of alcohol (finding) [facility] Start: 08-08-2015 Alcohol Comment couldn't get p ain med's so I drink a lot [facility] Start: 1950 Sex Assigned At Not on file [facility] Medical Equipment Procedure Code Equipment Code Equipment Origin al Text Equipment Identifier Dates Cystoscopy, with ureteral calculus manipulation and stent placement [id number] FDA Start: 05-25-2020 Cystoscopy, with ureteral calculus manipulation and stent placement [id number] FDA Start: 05-25-2020 Goals Date Patient Goal Desired Activity /State Functional Status Date Assessment Result Facility 12-19-2022 Functional Status N/A [facility] 10-24-2022 Functional status Patient at Baseline [facility] [place] Work Phone: 09-12-2022 Functional status Patient at Baseline [facility] Work Phone: 09-10-2022 Functional status Patient at Baseline [facility] Work Phone: 08-29-2022 Functional status Patient at Baseline [facility] Work Phone: 08-01-2022 Functional Status N/A [facility] 06-07-2022 Functional Status N/A [facility] 04-26-2022 Functional Status N/A [facility] 11-21-2021 Functional status Patient at Baseline [facility] Work Phone: 11-14-2021 Functional status Functional Sta tus Comment Pt has assistance with all care at [facility] Work Phone: Mental Status Date Assessment Result Facility 10-24-2022 Cognitive function Patient at Baseline [facility] Work Phone: 09-12-2022 Cognitive function Patient at Baseline [facility] Work Phone: 09-10-2022 Cognitive function Patient at Baseline [facility] Work Phone: 08-29-2022 Cognitive function Patient at Baseline [facility] Work Phone: 11-21-2021 Cognitive function Cognitive Sta tus Patient at Baseline [facility] Work Phone: Clinical Notes 07-13-2015 to 03-11-2023 Note Date & Type Note Facility 03-11-2023 Evaluation note Encounter Date Diagnosis Assessment Notes Mar, Chronic renal insufficien cy, stage IV (severe) (ICD-10 - N18.4) Mar, Other [Severe chronic renal insufficiency stage IV Given that his creatinine clearance is 12 and his anatomic options for creation of an autologous fistula are fairly limited, along with the limited mobility of his right upper extremity I believe that he would be best served with attempt at prosthetic graft placement. If there is an adequate antecubital vein outflow target we placed a forearm graft since this will be easier to access given his limited arm mobility. If he does not have a good forearm antecubital vein we will place an upper arm graft so that we can tunnel it quite anterior on the arm and make it accessible given his limited mobility. We discussed the different possibilities for hemodialysis access including catheter-based access, fistula, and prosthetic dialysis graft. We discussed the limitations of each of these access modalities and we also talked about the possibility of ischemic steal syndrome. He already has severe muscle wasting in both hands with flexion contractures although the right is worse.] [facility] Other 11-09-2023 Evaluation note* Encounter Date Diagnosis Assessment Notes Treatment Notes Treatment Clinical Notes Feb, CKD (chronic kidney disease) stage 4, GFR 15-29 ml/min (ICD-10 - N18.4) Patient has advanced CKD due to diabetic nephropathy, hypertension and obstructive nephropathy. Patient has history of left hydronephrosis needed percutaneous nephrostomy tube placement which was removed 3 months ago. Repeat renal ultrasound revealed persistent left hydroureteronephrosi s. Spot urine showed significant proteinuria 10 g/g of creatinine seems to be diabetic nephropathy. Serum creatinine has progressed over the last 2 years because of noncompliance with medications and follow-up with his doctors. Creatinine has increased up to 4.8 mg/dL. Patient is high risk for progression of CKD and eventually will need dialysis. I did discuss with the patient the option of dialysis again and at this point, last visit 2 months ago he stated that he needed conservative treatment and today he stated that he would proceed with dialysis if needed. He agreed to proceed with AV fistula preparation. Will refer to vascular surgery. Feb, Hydronephrosis (ICD-10 - N13.30) Patient has history of nephrolithiasis with left-sided hydronephrosis. Patient is supposed to follow with Dr. CALZADA in urology office. Patient had left percutaneous nephrostomy tube placed which was removed 3 months ago. Patient has been refusing to follow-up with urology and he did refuse intervention during hospitalization on October 2022. Feb, Hyperkalemia (ICD-10 - E87.5) Potassium in the high range of normal related to progressive chronic kidney disease and obstructive uropathy. He is on potassium supplement that will be stopped. Continue furosemide 40 mg twice a day. Feb, Hypertensive chronic kidney disease with stage 1 through stage 4 chronic kidney disease, or unspecified chronic kidney disease (ICD-10 - I12.9) Blood pressure was quite variable according to the volume status. Patient used to be on losartan that was stopped because of progressive chronic kidney disease and hyperkalemia. He is currently on furosemide with mild edema. Patient is high risk for progression of CKD with low blood pressure. Feb, Diabetic nephropathy associated with type 2 diabetes mellitus (ICD-10 - E11.21) He follow-up with [facility]. 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 Patient has borderline iron stores on ferrous sulfate. Folic acid level is low. He has a borderline B12 on multivitamins. He follow-up with [facility] and he has been on Aranesp. Recheck CBC, iron stores, B12 and folic acid with next blood work. Feb, PAD (peripheral artery disease) (ICD-10 - I73.9) Patient has history of peripheral arterial disease. He has a left tarsometatarsal amputation. He has a right foot wound. He is currently on meropenem via PICC line. He follow-up with pediatric. Feb, Nephrolithiasis (ICD-10 - N20.0) Patient has bilateral nephrolithiasis with recurrent left hydronephrosis. He was referred to urology as stated above. 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 He has elevated phosphorus. We will add calcium acetate 2 tablets with each meal. Low phosphorus diet was addressed. Recheck phosphorus, calcium and intact PTH in 2 months. We will check 25-hydroxy vitamin D as well. [facility] Other 09-14-2023 Hospital Discharge instructions Patient Education 12/19/2022 15:27:33 Benign Prostatic Hyperplasia Benign Prostatic Hyperplasia Benign prostatic hyperplasia (BPH) is an enlarged prostate gland that is caused by the normal agingprocess. The prostate may get bigger as a man gets older. The condition is not caused by cancer. The prostate is a walnut-sized gland that is involved in the production of semen. It is located in front of the rectum and below the bladder. The bladder stores urine. The urethra carries stored urine ou t of the body. An enlarged prostate can press on the urethra. This can make it harder to pass urine. The buildup of urine in the bladder can cause infection. Back pressure and infection may progress to bladder damage and kidney (renal) failure. What are the causes? This condition is part of the normal aging process. However, not all men develop problems from thiscondition. If the prostate enlarges away from the urethra, urine flow will not be blocked. If it enlarges toward the urethra and compresses it, there will be problems passing urine. What increases the risk? This condition is more likely to develop in men older than 50 years. What are the signs or symptoms? Symptoms of this condition include: Getting up often during the night to urinate. Needing to urinate frequently during the day. Difficulty starting urine flow. Decrease in size and strength of your urine stream. Leaking (dribbling) after urinating. Inability to pass urine. This needs immediate treatment. Inability to completely empty your bladder. Pain when you pass urine. This is more common if there is also an infection. Urinary tract infection (UTI). How is this diagnosed? This condition is diagnosed based on your medical history, a physical exam, and your symptoms. Tests will also be done, such as: A post-void bladder scan. This measures any amount of urine that may remain in your bladder after you finish urinating. A digital rectal exam. In a rectal exam, your health care provider checks your prostate by putting a lubricated, gloved finger into your rectum to feel the back of your prostate gland. This exam detects the size of your gland and any abnormal lumps or growths. An exam of your urine (urinalysis). A prostate specific antigen (PSA) screening. This is a blood test used to screen for prostate cancer. An ultrasound. This test uses sound waves to electronically produce a picture of your prostate gland. Your health care provider may refer you to a specialist in kidney and prostate diseases (urologist). How is this treated? Once symptoms begin, your health care provider will monitor your condition (active surveillance or watchful waiting). Treatment for this condition will depend on the severity of your condition. Treatment may include: Observation and yearly exams. This may be the only treatment needed if your condition and symptoms are mild. Medicines to relieve your symptoms, including: ?Medicines to shrink the prostate. ?Medicines to relax the muscle of the prostate. Surgery in severe cases. Surgery may include: ?Prostatectomy. In this procedure, the prostate tissue is removed completely through an open incision or with a laparoscope or robotics. ?Transurethral resection of the prostate (TURP). In this procedure, a tool is inserted through the opening at the tip of the penis (urethra). It is used to cut away tissue of the inner core of the prostate. The pieces are removed through the same opening of the penis. This removes the blockage. ?Transurethral incision (TUIP). In this procedure, small cuts are made in the prostate. This lessens the prostate's pressure on the urethra. ?Transurethral microwave thermotherapy (TUMT). This procedure uses microwaves to create heat. The heat destroys and removes a small amount of prostate tissue. ?Transurethral needle ablation (TUNA). This procedure uses radio frequencies to destroy and remove a small amount of prostate tissue. ?Interstitial laser coagulation (ILC). This procedure uses a laser to destroy and remove a small amount of prostate tissue. ?Transurethral electrovaporization (TUVP). This procedure uses electrodes to destroy and remove a small amount of prostate tissue. ?Prostatic urethral lift. This procedure inserts an implant to push the lobes of the prostate away from the urethra. Follow these instructions at home: Take snio-utg-bdscfgh and prescription medicines only as told by your health care provider. Monitor your symptoms for any changes. Contact your health care provider with any changes. Avoid drinking large amounts of liquid before going to bed or out in public. Avoid or reduce how much caffeine or alcohol you drink. Give yourself time when you urinate. Keep all follow-up visits. This is important. Contact a health care provider if: You have unexplained back pain. Your symptoms do not get better with treatment. You develop side effects from the medicine you are taking. Your urine becomes very dark or has a bad smell. Your lower abdomen becomes distended and you have trouble passing urine. Get help right away if: You have a fever or chills. You suddenly cannot urinate. You feel light-headed or very dizzy, or you faint. There are large amounts of blood or clots in your urine. Your urinary problems become hard to manage. You develop moderate to severe low back or flank pain. The flank is the side of your body between the ribs and the hip. These symptoms may be an emergency. Get help right away. Call 911. Do not wait to see if the symptoms will go away. Do not drive yourself to the hospital. Summary Benign prostatic hyperplasia (BPH) is an enlarged prostate that is caused by the normal aging process. It is not caused by cancer. An enlarged prostate can press on the urethra. This can make it hard to pass urine. This condition is more likely to develop in men older than 50 years. Get help right away if you suddenly cannot urinate. This information is not intended to replace advice given to you by your health care provider. Make sure you discuss any questions you have with your health care provider. Document Revised: 10/10/2021 Document Reviewed: 10/10/2021 [employer] Patient Education 2022 [employer]. Follow Up Care 09/12/2022 14:12:32 With:Anabela HOLLOWAY, VEENA Doyle, URO Address: When: Unknown [facility] Miguelangel 09-07-2023 Evaluation note* Encounter Date Diagnosis Assessment Notes Treatment Notes Treatment Clinical Notes Dec, CKD (chronic kidney disease) stage 4, GFR 15-29 ml/min (ICD-10 - N18.4) Patient has advanced CKD due to diabetic nephropathy, hypertension and obstructive nephropathy. Patient has history of left hydronephrosis needed percutaneous nephrostomy tube placement which was removed 3 months ago. Repeat renal ultrasound revealed persistent left hydroureteronephrosi s. UA revealed 300 protein likely from diabetic nephropathy. Serum creatinine has progressed over the last 2 years because of noncompliance with medications and follow-up with his doctors. Creatinine has been around 4.5 to 4.7 mg/dL with minimal hyperkalemia and acidosis. Patient is high risk for progression of CKD and eventually will need dialysis. I did discuss with the patient the option of dialysis again and at this point, he is interested in conservative treatment only. He is not willing to proceed with AV fistula at this time. We will monitor renal function and will discuss with the patient again in case he change his mind. Dec, Hydronephrosis (ICD-10 - N13.30) Patient has history of nephrolithiasis with left-sided hydronephrosis. Patient is supposed to follow with Dr. CALZADA in urology office. Patient had left percutaneous nephrostomy tube placed which was removed 3 months ago. Patient has been refusing to follow-up with urology and he did refuse intervention during hospitalization on October 2022. Dec, Hyperkalemia (ICD-10 - E87.5) Potassium in the high range of normal related to progressive chronic kidney disease and obstructive uropathy. Continue furosemide 40 mg twice a day. Dec, Hypertensive chronic kidney disease with stage 1 through stage 4 chronic kidney disease, or unspecified chronic kidney disease (ICD-10 - I12.9) Blood pressure was quite variable according to the volume status. Patient used to be on losartan that was stopped because of progressive chronic kidney disease and hyperkalemia. He is currently on furosemide, dose was just increased to 40 mg twice a day. He still has mild edema. Patient is high risk for progression of CKD with low blood pressure. Dec, Diabetic nephropathy associated with type 2 diabetes mellitus (ICD-10 - E11.21) He follow-up with [facility]. 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 Patient has borderline iron stores on ferrous sulfate. Folic acid level is low. He has a borderline B12 on multivitamins. He follow-up with [facility] and he has been on Aranesp. We will add folic acid 1 mg p.o. daily. Continue oral ferrous sulfate and multivitamins. Recheck CBC, iron stores, B12 and folic acid with next blood work. Dec, PAD (peripheral artery disease) (ICD-10 - I73.9) Patient has history of peripheral arterial disease. He has a left tarsometatarsal amputation. He has a right foot wound. He is currently on meropenem via PICC line. He follow-up with pediatric. Dec, Nephrolithiasis (ICD-10 - N20.0) Patient has bilateral nephrolithiasis with recurrent left hydronephrosis. He was referred to urology as stated above. [place] [facility] Other 08-03-2023 Evaluation note* Encounter Date Diagnosis Assessment Notes Treatment Notes Treatment Clinical Notes Nov, Bacterial infection due to Serratia (ICD-10 - A49.8) So follow up today is from his PICC infection with Serratia. He is doing well overall. No concerns. Overall his PICC was removed in the hosptial. His right foot wound is chronic. He has yet to see his manager freelance for this since being out of the hospital. I personally have treated him with IV abx numerous times for this non healing foot infection. It will improve but never has healed. Nov, Chronic ulcer of right foot with fat layer exposed (ICD-10 - L97.512) Urged him to see his manager freelance. After multiple repeated rounds of IV antibiotics for this right foot infection just seems there is some positve response to abx but ultimately another infection sets in given this non Nov, Osteomyelitis of right foot, unspecified type (ICD-10 - M86.9) Nov, Other specified bacterial agents as the cause of diseases classified elsewhere (ICD-10 - B96.89) [facility] Other 07-20-2023 Hospital Discharge instructionsAmbulatory Orders* Initiate Home Health Time Frame: 10/24/22, Location: Determined By Patient Additional Instructions Monitor your blood sugar prior to each meal. Keep a record of these to take to your Dr. appointments. Off load bilateral heels HOME HEALTH TO MANAGE: Nursing/Aide to eval and treat Monitor VS per protocol--HTN Monitor Skin assessment and for increased signs of infection--Bacteremia, Wounds Monitor assessment--CKD Continue previous wound care orders at discharge to right plantar foot, right lateral ankle, and right heel ulcer Wound care every 2 days to right great toe and right 4th toe ulcer: *Clean with Vashe. Top with [employer] and secure with a band aid. Assist with medication management and provide medication education Assist with glucose control [facility] Phone: 1(164) 734-831907-20-2023 Progress note Author Riya Pitt [facility] October 24, 2022 10:02am Note Date/Time October 24, 2022 10:0 2am [facility] [address] [place] [address] Infect. Disease Progress Note Signed Patient: Simon Lott MR#: [id number] : 1950 Acct:[id number] Age/Sex: 72 / M Adm Date: 3 Loc: Room: [address] [place] [address] Type: ADM IN Attending Dr: Riya Sampson DO Copies to: ~ Date of Service: 10/24/2022 Subjective Interval history: Patient is doing good today and wants to go home. No problems overnight. PICC line was pulled. Exam Physical Exam Vital Signs: Temp Pulse Resp BP Pulse Ox O2 Del Method 97.6 F 82 18 163/77 H 97 Room Air 10/24/22 08:00 10/24/22 08:00 10/24/22 08:00 10/24/22 08:00 10/24/22 08:00 10/24/22 08:00 Const General: cooperative, comfortable and no acute distress Orientation: oriented x3 HEENT Head: normal to inspection Ears: hearing grossly normal bilaterally Mouth: oral mucosae normal Eyes General: appearance normal, both eyes and all related structures Neck Neck: normal visual inspection Chest Chest palpation & inspection: normal inspection of the chest Resp Effort & Inspection: normal respiratory effort Cardio Palpation: normal PMI Rate: regular rate GI Inspection: normal to inspection Palpation: soft and nontender Skin Other: Right foot wrapped with clean dry dressing today was not taken down. Wounds visualized yesterday. Neuro General: patient oriented x3 Objective Labs CBC/BMP: CBC, BMP 10/24/22 10/24/22 06:21 06:21 Corrected WBC 10.3 Uncorrected WBC Count 10.3 RBC 2.45 L Hgb 7.9 L Hct 24.4 L Plt Count 244 Sodium 142 Potassium 4.2 Chloride 111 H Carbon Dioxide 23.6 Anion Gap 11.6 BUN 30 H Creatinine 2.78 H Calcium 7.4 L Labs: 10/24/22 06:21 BUN 30 H Creatinine 2.78 H Microbiology Microbiology: Microbiology - Results from entire visit 10/22/22 16:38 Blood - Left Wrist Blood Culture - Preliminary No Growth 1 Day 10/22/22 16:14 Blood - Right Hand Blood Culture - Preliminary No Growth 1 Day Allergies and Medications Allergies and Active Meds Allergies codeine Allergy (Verified 10/21/22 12:39) Unknown Reaction lisinopril Allergy (Verified 10/21/22 12:39) Swelling of Lip/Tongue/Throat Active Medications Acarbose (Acarbose 50 Mg Tablet) 100 mg PO TID JULIANN Stop: 10/22/23 21:59 Last Admin: 10/24/22 08:55 Dose: 100 mg Ammonium Lactate (Ammonium Lactate 12% Lot 226 Gm Bottle) 1 applic TOPICAL DAILY JULIANN Stop: 10/23/23 08:59 Last Admin: 10/24/22 08:57 Dose: 1 applic Atorvastatin Calcium (Atorvastatin 10 Mg Tablet) 10 mg PO HS JULIANN Stop: 10/22/23 21:59 Last Admin: 10/23/22 22:07 Dose: 10 mg Clopidogrel Bisulfate (Clopidogrel Bisulfate 75 Mg Tablet) 75 mg PO DAILY JULIANN Stop: 10/23/23 08:59 Last Admin: 10/24/22 08:55 Dose: 75 mg Duloxetine HCl (Duloxetine 60 Mg Capsule.Dr) 60 mg PO QHS JULIANN Stop: 10/22/23 21:59 Last Admin: 10/23/22 22:07 Dose: 60 mg Folic Acid (Folic Acid 1 Mg Tablet) 1 mg PO DAILY [facility] Stop: 10/23/23 08:59 Last Admin: 10/24/22 08:55 Dose: 1 mg Furosemide (Furosemide 40 Mg Tablet) 40 mg PO BID@0800,1600 [facility] Stop: 10/23/23 07:59 Last Admin: 10/24/22 08:56 Dose: 40 mg Gabapentin (Gabapentin 600 Mg Tablet) 600 mg PO QPM [facility] Stop: 10/22/23 20:59 Last Admin: 10/23/22 22:08 Dose: 600 mg Heparin Sodium (Porcine) (Heparin 5,000 Unit/Ml Vial) 5,000 unit SUBCUT Q8HR [facility] Stop: 10/22/23 21:59 Last Admin: 10/24/22 05:31 Dose: 5,000 unit Hydralazine HCl (Hydralazine 20 Mg/Ml Vial) 20 mg IV-PUSH Q2H PRN PRN Reason: SBP > 165 Stop: 10/23/23 16:35 Aztreonam (Azactam) 2 gm in 100 mls @ 200 mls/hr IV Q8H [facility] Last Infusion: 10/24/22 06:48 Dose: Infused Ceftazidime/Avibactam 0.94 gm/ (Sodium Chloride) 100 mls @ 50 mls/hr IV Q12H [facility]; Protocol Stop: 10/22/23 22:29 Last Infusion: 10/24/22 03:20 Dose: Infused Insulin Aspart (Insulin Aspart 300 Units/3 Ml Insuln.Pen) 0 units SUBCUT ACHS [facility]; Protocol Stop: 10/23/23 07:29 Last Admin: 10/24/22 06:47 Dose: Not Given Insulin Glargine (Insulin Glargine 300 Units/3 Ml Insuln.Pen) 42 units SUBCUT DAILY JULIANN Stop: 10/23/23 08:59 Last Admin: 10/24/22 08:57 Dose: 42 units Melatonin (Melatonin 5 Mg Tablet) 5 mg PO HS PRN PRN Reason: Insomnia Stop: 10/22/23 20:39 Nifedipine (Nifedipine Er.24hr 90 Mg Tab.Er.24) 90 mg PO DAILY JULIANN Stop: 10/23/23 08:59 Last Admin: 10/24/22 08:56 Dose: 90 mg Polyethylene Glycol (Polyethylene Glycol 3350 17 Gm Powd.Pack) 17 gm PO DAILY JULIANN Stop: 10/23/23 08:59 Last Admin: 10/24/22 08:56 Dose: 17 gm Potassium Chloride (Potassium Chloride Er 20 Meq Tab.Er.Prt) 20 meq PO DAILY JULIANN Stop: 10/23/23 08:59 Last Admin: 10/24/22 08:56 Dose: 20 meq Sodium Bicarbonate (Sodium Bicarbonate 650 Mg Tablet) 1,300 mg PO TID JULIANN Stop: 10/22/23 21:59 Last Admin: 10/24/22 08:56 Dose: 1,300 mg Sodium Chloride (Sodium Chloride 0.9 % 10 Ml Syringe) 0 ml IV-PUSH PRN PRN PRN Reason: Flush Stop: 10/22/23 15:31 Last Admin: 10/23/22 22:09 Dose: 10 ml Tamsulosin HCl (Tamsulosin 0.4 Mg Cap.Er.24h) 0.4 mg PO BID JULIANN Stop: 10/22/23 20:59 Last Admin: 10/24/22 08:55 Dose: 0.4 mg A&P - Infectious Disease Assessment/Plan (1) Infection due to Stenotrophomonas maltophilia: Code(s): A49.8 - Other bacterial infections of unspecified site Status: Acute (2) Bacteremia: Code(s): R78.81 - Bacteremia Status: Acute (3) Left against medical advice: Code(s): Z53.29 - Procedure and treatment not carried out because of patient's decision for other reasons Status: Acute Plan Patient's initial culture from September 10 was targeted with IV meropenem as an outpatient. He has completed more than 6 weeks of this and ended up rehospitalized as stated in the HPI I did yesterday. His blood cultures repeated from the remain negative at 1 day. Blood cultures from and then previous had grown the stenotrophomonas as well as the Esteban bacterium. From my standpoint though the foot again is growing different bacteria this was asuperficial culture and is likely representation of colonization as he just was on IV meropenem for 6 weeks. Ultimately follows with Dr. Gayle in [place]. From his recent bacteremia with stenotrophomonas and now the PICC line which is likely the source has been pulled. Favor oral Levaquin potentially for discharge for continued therapy as this would negate another PICC line for being placed given his noncompliance as well as hygienic challenges Documented By: Riya Pitt MD 10/24/22 0957 Signed By: <Electronically signed by MD Riya Pitt> 10/24/22 [facility] Work Phone: [phone]) 273-354607-19-2023 Progress note Author Riya Sampson [facility] October 23, 2022 1:21pm Note Date/Time October 23, 2022 1:11 pm [facility] [address] [place] [address] Hospitalist Progress Note Signed Patient: Simon Lott MR#: [id number] : 1950 Acct:[id number] Age/Sex: 72 / M Adm Date: 3 Loc: Room: [address] [place] [address] Type: ADM IN Attending Dr: Riya Sampson DO Copies to: ~ Date of Service: 10/23/2022 Subjective Subjective Narrative: Patient was seen and examined at the bedside earlier this morning. The patient pulls his blankets up over his face and does not speak but is seemingly awake Physical Examination: GENERAL APPEARANCE: The patient pulls his blankets up over his face and does notspeak but is seemingly awake HEENT: NCAT, MMM NECK: Neck soft w/o masses, no JVD CARDIAC: Normal S1 and S2. No S3, S4 or murmurs. LUNGS: Clear to auscultation anteriorly ABDOMEN: Positive bowel sounds. Soft, nontender. No guarding or signs of an acute abdomen EXTREMITIES: No clubbing, cyanosis. Large lymphedematous lower extremities bilaterally, appropriate dressing in place to right lower extremity NEUROLOGICAL: No focal deficits PSYCHIATRIC: Appropriate mood and affect Assessment and plan: 1. Stenotrophomonas maltophilia bacteremia Appreciate infectious disease recommendations. PICC line will be removed. Can continue Avycaz. Repeat blood cultures from yesterday are still pending. 99.2 low-grade fever yesterday, afebrile since that time. ESR and CRP elevation persist. 2. Leukocytosis 3. Eosinophilia Monitor. This may benefit from oncology consultation as an outpatient 4. Chronic kidney disease stage V Serum creatinine is at baseline. He is notably edematous in the lower extremities however I suspect much of this is chronic. We will continue home Lasix 40 mg p.o. twice daily. Continue sodium bicarbonate 1300 mg 3 times daily. Trend daily labs and consult nephrology if any worsening. 5. Anemia Multifactorial likely anemia of chronic kidney disease, anemia of chronic inflammation. MCV is normocytic at 95.5. Monitor for any clinical bleeding. Transfuse if the patient becomes further symptomatic with this. Currently stable. 6. Insulin-dependent diabetes mellitus Continue home basal bolus insulin regimen and acarbose 100 mg 3 times daily. Carb controlled diet. 7. Hypertension Continue home nifedipine 90 mg daily 8. Diabetic neuropathy Continue home 600 mg gabapentin nightly 9. Dyslipidemia Continue home atorvastatin 10 mg nightly 10. BPH Continue home Flomax 0.4 mg twice daily Disposition: Patient is admitted for multiple acute medical issues as above and will require ongoing monitoring of blood cultures, continuous IV antibiotics anddaily labs. He is thus admitted as an inpatient for a stay that will surpass greater than 2 midnights. Exam Physical Exam Vital Signs: Temp Pulse Resp BP Pulse Ox O2 Del Method 97.9 F 99 H 18 182/85 H 100 Room Air 10/23/22 11:38 10/23/22 11:38 10/23/22 11:38 10/23/22 11:38 10/23/22 11:38 10/23/22 11:38 Objective Lab Results 10/23/22 06:28 10/23/22 08:06 Meds Allergies and Active Meds Allergies codeine Allergy (Verified 10/21/22 12:39) Unknown Reaction lisinopril Allergy (Verified 10/21/22 12:39) Swelling of Lip/Tongue/Throat Active Meds: Active Medications Generic Name Dose Route Start Last Admin Trade Name Freq PRN Reason Stop Dose Admin Acarbose 100 mg 10/22/22 22:00 10/23/22 09:53 Acarbose 50 Mg Tablet PO 10/22/23 21:59 100 mg TID JULIANN Administration Ammonium Lactate 1 applic 10/23/22 09:00 10/23/22 09:57 Ammonium Lactate 12% Lot 226 Gm Bottle TOPICAL 10/23/23 08:59 1 applic DAILY JULIANN Administration Atorvastatin Calcium 10 mg 10/22/22 22:00 10/22/22 23:05 Atorvastatin 10 Mg Tablet PO 10/22/23 21:59 10 mg HS JULIANN Administration Clopidogrel Bisulfate 75 mg 10/23/22 09:00 10/23/22 09:54 Clopidogrel Bisulfate 75 Mg Tablet PO 10/23/23 08:59 75 mg DAILY JULIANN Administration Duloxetine HCl 60 mg 10/22/22 22:00 10/22/22 23:05 Duloxetine 60 Mg Capsule. PO 10/22/23 21:59 60 mg QHS JULIANN Administration Folic Acid 1 mg 10/23/22 09:00 10/23/22 09:53 Folic Acid 1 Mg Tablet PO 10/23/23 08:59 1 mg DAILY JULIANN Administration Furosemide 40 mg 10/23/22 08:00 10/23/22 09:53 Furosemide 40 Mg Tablet PO 10/23/23 07:59 40 mg BID@0800,1600 JULIANN Administration Gabapentin 600 mg 10/22/22 21:00 10/22/22 23:05 Gabapentin 600 Mg Tablet PO 10/22/23 20:59 600 mg QPM JULIANN Administration Heparin Sodium (Porcine) 5,000 unit 10/22/22 22:00 10/23/22 07:01 Heparin 5,000 Unit/Ml Vial SUBCUT 10/22/23 21:59 5,000 unit Q8HR JULIANN Administration Aztreonam 2 gm in 100 mls @ 200 mls/hr 10/22/22 22:30 10/23/22 07:02 Azactam IV 200 mls/hr Q8H JULIANN Administration Ceftazidime/Avibactam 0.94 gm/ 100 mls @ 50 mls/hr 10/22/22 22:30 10/23/22 12:35 Sodium Chloride IV 10/22/23 22:29 50 mls/hr Q12H JULIANN Administration Protocol Insulin Aspart 0 units 10/23/22 07:30 10/23/22 11:37 Insulin Aspart 300 Units/3 Ml Insuln.Pen SUBCUT 10/23/23 07:29 Not Given ACHS JULIANN Protocol Insulin Glargine 42 units 10/23/22 09:00 10/23/22 09:54 Insulin Glargine 300 Units/3 Ml Insuln.Pen SUBCUT 10/23/23 08:59 42 units DAILY JULIANN Administration Melatonin 5 mg 10/22/22 20:40 Melatonin 5 Mg Tablet PO 10/22/23 20:39 HS PRN Insomnia Nifedipine 90 mg 10/23/22 09:00 10/23/22 09:54 Nifedipine Er.24hr 90 Mg Tab.Er.24 PO 10/23/23 08:59 90 mg DAILY JULIANN Administration Polyethylene Glycol 17 gm 10/23/22 09:00 10/23/22 09:57 Polyethylene Glycol 3350 17 Gm Powd.Pack PO 10/23/23 08:59 17 gm DAILY JULIANN Administration Potassium Chloride 20 meq 10/23/22 09:00 10/23/22 09:54 Potassium Chloride Er 20 Meq Tab.Er.Prt PO 10/23/23 08:59 20 meq DAILY JULIANN Administration Sodium Bicarbonate 1,300 mg 10/22/22 22:00 10/23/22 09:54 Sodium Bicarbonate 650 Mg Tablet PO 10/22/23 21:59 1,300 mg TID JULIANN Administration Sodium Chloride 0 ml 10/22/22 15:32 10/22/22 22:24 Sodium Chloride 0.9 % 10 Ml Syringe IV-PUSH 10/22/23 15:31 10 ml PRN PRN Administration Flush Tamsulosin HCl 0.4 mg 10/22/22 21:00 10/23/22 09:53 Tamsulosin 0.4 Mg Cap.Er.24h PO 10/22/23 20:59 0.4 mg BID JULIANN Administration Documented By: Riya Sampson DO 10/23/22 13 08 Signed By: <Electronically signed by Riya Sampson DO> 10/23/22 [facility] Work Phone: [phone]) 310-617807-19-2023 Consult note Author Riya Pitt [facility] October 23, 2022 11:44am Note Date/Time October 23, 2022 11:3 2am [facility] [address] [place] [address] Infect. Disease Consult Note Signed Patient: Simon Lott MR#: [id number] : 1950 Acct:[id number] Age/Sex: 72 / M Adm Date: 3 Loc: Room: [address] [place] [address] Type: ADM IN Attending Dr: Riya Sampson DO Copies to: ELÍAS Quigley DO Michael S Blank, MD~ HPI Data of Consult Consult date: 10/23/22 Requesting Physician: Riya Sampson DO Primary Care Provider: ELÍAS Quigley Consult Narrative History of present illness: Mr. Lott is a 72 year old male who is known to me from multiple hospital stays and persistent nonhealing right foot infection. He has been following with Dr. Gayle in [place]. He was discharged Back on September 12 and the plan was for him to stay on IV meropenem for 6 weeks to target osteomyelitis of the right heel. I have not seen him since then though [facility] received many phone calls about him. He had gone to emergency room October 13 due to bleeding at the base of his right foot. Blood cultures were drawn and they had turned positive for stenotrophomonas. He had already been sent from the ER but when they called me about a nights that he needed to come back and beadmitted. Patient was very difficult getting a hold of according to the ER and then we did she did come back he left AMA. Intermittently despite about 15-20 phone calls the ER is made he finally came back to the hospital and had repeat blood cultures drawn and again they are growing stenotrophomonas. He has a PICCline in his left upper extremity that has been receiving meropenem for. Patientstates he feels fine and denies any systemic symptoms of infection. He was readmitted last night and agreed to stay. He is now on Avycaz. CC: Riya Sampson DO Review of Systems Review of Systems All other systems reviewed & are negative unless noted below or in HPI [facility] Attestation Statement: The following information was validated with the patient. Vaccinated for COVID-19?: Yes Medical History Alcohol abuse Amputated toe of left foot ALL 5 TOES Anemia Anxiety BPH (benign prostatic hyperplasia) Cellulitis of left foot Chronic foot ulcer Depression Diabetes Foot drop Hepatitis C HTN (hypertension) Hyperlipidemia Hypertension Kidney stones Major depressive disorder Neuropathy PVD (peripheral vascular disease) Right foot infection Ruptured spleen Stroke Ureteral stone with hydronephrosis Surgical History History of appendectomy History of phacoemulsification of cataract of left eye with intraocular lens implantation History of transmetatarsal amputation of left foot Hx of nephrostomy Family History Mother Diabetes Father Diabetes Sister Diabetes Brother Diabetes Social History Smoking Status: Current every day smoker Tobacco Type: cigarettes Substance Use Type: Alcohol Social History Comments: [facility] Allergies and Medications Allergies and Active Meds Allergies codeine Allergy (Verified 10/21/22 12:39) Unknown Reaction lisinopril Allergy (Verified 10/21/22 12:39) Swelling of Lip/Tongue/Throat Active Medications Acarbose (Acarbose 50 Mg Tablet) 100 mg PO TID JULIANN Stop: 10/22/23 21:59 Last Admin: 10/23/22 09:53 Dose: 100 mg Ammonium Lactate (Ammonium Lactate 12% Lot 226 Gm Bottle) 1 applic TOPICAL DAILY JULIANN Stop: 10/23/23 08:59 Last Admin: 10/23/22 09:57 Dose: 1 applic Atorvastatin Calcium (Atorvastatin 10 Mg Tablet) 10 mg PO HS JULIANN Stop: 10/22/23 21:59 Last Admin: 10/22/22 23:05 Dose: 10 mg Clopidogrel Bisulfate (Clopidogrel Bisulfate 75 Mg Tablet) 75 mg PO DAILY JULIANN Stop: 10/23/23 08:59 Last Admin: 10/23/22 09:54 Dose: 75 mg Duloxetine HCl (Duloxetine 60 Mg Capsule.Dr) 60 mg PO QHS JULIANN Stop: 10/22/23 21:59 Last Admin: 10/22/22 23:05 Dose: 60 mg Folic Acid (Folic Acid 1 Mg Tablet) 1 mg PO DAILY JULIANN Stop: 10/23/23 08:59 Last Admin: 10/23/22 09:53 Dose: 1 mg Furosemide (Furosemide 40 Mg Tablet) 40 mg PO BID@0800,1600 JULIANN Stop: 10/23/23 07:59 Last Admin: 10/23/22 09:53 Dose: 40 mg Gabapentin (Gabapentin 600 Mg Tablet) 600 mg PO QPM [facility] Stop: 10/22/23 20:59 Last Admin: 10/22/22 23:05 Dose: 600 mg Heparin Sodium (Porcine) (Heparin 5,000 Unit/Ml Vial) 5,000 unit SUBCUT Q8HR [facility] Stop: 10/22/23 21:59 Last Admin: 10/23/22 07:01 Dose: 5,000 unit Aztreonam (Azactam) 2 gm in 100 mls @ 200 mls/hr IV Q8H [facility] Last Admin: 10/23/22 07:02 Dose: 200 mls/hr Ceftazidime/Avibactam 0.94 gm/ (Sodium Chloride) 100 mls @ 50 mls/hr IV Q12H [facility]; Protocol Stop: 10/22/23 22:29 Last Admin: 10/22/22 22:59 Dose: 50 mls/hr Insulin Aspart (Insulin Aspart 300 Units/3 Ml Insuln.Pen) 0 units SUBCUT ACHS [facility]; Protocol Stop: 10/23/23 07:29 Last Admin: 10/23/22 07:55 Dose: Not Given Insulin Glargine (Insulin Glargine 300 Units/3 Ml Insuln.Pen) 42 units SUBCUT DAILY [facility] Stop: 10/23/23 08:59 Last Admin: 10/23/22 09:54 Dose: 42 units Melatonin (Melatonin 5 Mg Tablet) 5 mg PO HS PRN PRN Reason: Insomnia Stop: 10/22/23 20:39 Nifedipine (Nifedipine Er.24hr 90 Mg Tab.Er.24) 90 mg PO DAILY JULIANN Stop: 10/23/23 08:59 Last Admin: 10/23/22 09:54 Dose: 90 mg Polyethylene Glycol (Polyethylene Glycol 3350 17 Gm Powd.Pack) 17 gm PO DAILY JULIANN Stop: 10/23/23 08:59 Last Admin: 10/23/22 09:57 Dose: 17 gm Potassium Chloride (Potassium Chloride Er 20 Meq Tab.Er.Prt) 20 meq PO DAILY [facility] Stop: 10/23/23 08:59 Last Admin: 10/23/22 09:54 Dose: 20 meq Sodium Bicarbonate (Sodium Bicarbonate 650 Mg Tablet) 1,300 mg PO TID [facility] Stop: 10/22/23 21:59 Last Admin: 07/19/23 09:54 Dose: 1,300 mg Sodium Chloride (Sodium Chloride 0.9 % 10 Ml Syringe) 0 ml IV-PUSH PRN PRN PRN Reason: Flush Stop: 10/22/23 15:31 Last Admin: 10/22/22 22:24 Dose: 10 ml Tamsulosin HCl (Tamsulosin 0.4 Mg Cap.Er.24h) 0.4 mg PO BID JULIANN Stop: 10/22/23 20:59 Last Admin: 10/23/22 09:53 Dose: 0.4 mg Exam Physical Exam Vital Signs: Temp Pulse Resp BP Pulse Ox O2 Del Method 97.7 F 99 H 18 174/84 H 98 Room Air 10/23/22 07:55 10/23/22 07:55 10/23/22 07:55 10/23/22 07:55 10/23/22 07:55 10/23/22 08:00 Const General: cooperative, comfortable and no acute distress Orientation: oriented x3 HEENT Head: normal to inspection Ears: hearing grossly normal bilaterally Mouth: oral mucosae normal Eyes General: appearance normal, both eyes and all related structures Neck Neck: normal visual inspection Chest Chest palpation & inspection: normal inspection of the chest Resp Effort & Inspection: normal respiratory effort Cardio Palpation: normal PMI Rate: regular rate GI Inspection: normal to inspection Palpation: soft and nontender Skin Other: To my surprise the right foot though clearly still has wounds looks a lot betterthan it did back in September. Ulcer over the left heel still with some drainage. Some ulcerations noted at the toes as well on the right. Neuro General: patient oriented x3 Extrem Other: PICC in left upper extremity without swelling or tenderness Results Labs 10/23/22 06:28 10/23/22 08:06 Labs: 10/22/22 16:06: Corrected WBC 11.3 H, Uncorrected WBC Count 11.3 H 10/22/22 16:06: BUN 26 H, Creatinine 2.92 H 10/23/22 06:28: Corrected WBC 11.9 H, Uncorrected WBC Count 11.9 H 10/23/22 06:28: BUN 29 H, Creatinine 2.84 H Microbiology Results Microbiology Narrative: 10/22/22 16:38 Blood Culture - Pending Blood - Left Wrist 10/22/22 16:14 Blood Culture - Pending Blood - Right Hand Microbiology 10/21/22 13:51 Blood - Right Antecubital Blood Culture - Preliminary No Growth 1 Day 10/21/22 13:22 Blood - Pic Line Blood Culture - Preliminary 10/21/22 13:22 Blood - Pic Line Stenotrophomonas maltophilia 10/21/22 13:22 Blood - Pic Line Bacterial ID (NA Multiplex Assay) - Final 10/13/22 10:01 Blood - Right Hand Blood Culture - Final NO GROWTH 5 DAYS 10/13/22 09:52 Blood - Left Arm Blood Culture - Final 10/13/22 09:52 Blood - Left Arm Bacterial ID (NA Multiplex Assay) - Final Stenotrophomonas maltophilia [facility] A&P - Infectious Disease (1) Infection due to Stenotrophomonas maltophilia: Status: Acute (2) Bacteremia: Status: Acute (3) Left against medical advice: Status: Acute Plan Patient has had positive blood cultures for stenotrophomonas since October 13. He has not followed with medical advice about coming back to the emergency room andstaying for admission in order to have this worked up. He now is here and because of this we will have the PICC line pulled given the length of time he has been bacteremic. I agree with Avycaz will attempt to clear his cultures after the PICC line is pulled. As for his right foot I have to say that I am surprised that this is looking as good as it is externally. He follows with in [place]. Compared to my previous evaluation of his right foot the right heel definitely looks better. We will still have a wound care evaluate for further recommendations on dressing changes as when I took off the dressing the dressing was still saturated. Patient denies systemic symptoms. Maintain Avycaz and will discuss with pharmacy regarding the amikacin need. Documented By: Riya Pitt MD 10/23/22 1127 Signed By: <Electronically signed by MD Riya Pitt> 10/23/22 [facility] [facility] Work Phone: [phone] 558-639407-18-2023 History and physical note Author Riya Sampson [facility] October 22, 2022 9:37pm Note Date/Time October 22, 2022 9:37 pm [facility] [address] [place] [address] Hospitalist H&P Signed Patient: Simon Lott MR#: [id number] : 1950 Acct:[id number] Age/Sex: 72 / M Adm Date: 3 Loc: Room: [address] [place] [address] Type: ADM IN Attending Dr: Riya Sampson DO Copies to: ELÍAS Quigley, ~ HPI DATE OF EXAMINATION: 10/22/22 CHIEF COMPLAINT: Positive blood cultures. HISTORY OF PRESENT ILLNESS: This patient is a 72-year-old diabetic male with chronic kidney disease stage V who presents to the emergency department after being asked to return for positive blood cultures previously. Of note he was hospitalized here for cellulitis/osteomyelitis resulting from a diabetic foot ulcer in early September thisyear. He was discharged 09/12/2022 on 6 weeks of vancomycin and meropenem via PICC line. The patient then returned to the ER on 10/13/2022 with right-sided foot pain. He had leukocytosis 13.8 at that time and blood cultures were drawn. He was discharged and instructed to continue his IV antibiotics as previously prescribed. 1 of 2 blood cultures from that ER visit returned positive and he was called on multiple occasions to come back to the ER. The patient finally returned to the ER yesterday 10/21 however left AGAINST MEDICAL ADVICE prior to receiving any treatment. He returns again to the ER today and is now agreeable to have this adequately treated as an inpatient. Presenting vital signs in the ER today reveal a temperature 99.2 ?F, heart rate 96 bpm, blood pressure 160/70, respiratory rate of 18, 96% oxygen saturation on room air. Labs show persistent leukocytosis of 11.3, chronic anemia H&H 7.7/23.9% and 8% eosinophils. Of note this elevation in eosinophils has been present on labs dating back to September of last year. Labs reveal chemistries consistent with baseline CKD BUN/creatinine 26/2.92, hypoglycemia of 65, mild alkaline phosphatase elevation 147. Case was discussed with infectious disease Dr. Pitt in the ER who recommended the patient be admitted as an inpatient for effective treatment of ongoing bacteremia. Blood cultures were sent today in the ER and reportedly these were not drawn from the PICC line. Blood cultures were sent today and are pending. Yesterday's blood cultures showpositivity for stenotrophomonas maltophilia in 1 of 2 cultures, notably the culture drawn from PICC line. The same organism was noted from left arm cultures done 10/13/2022 and shows sensitivity to Bactrim and ceftazidime. Cultures from the right foot ulcer done 10/13/2022 revealed multidrug-resistant Pseudomonas aeruginosa and Marichuy species. This Pseudomonas is reportedly sensitive to ceftazidime/avibactam. Just to cover for both of these the patientwas started on ceftazidime in the ER and [facility] floor for further management and treatment. Physical Examination: GENERAL APPEARANCE: Alert, up in bed AAOx3 HEENT: NCAT, MMM NECK: Neck soft w/o masses, no JVD CARDIAC: Normal S1 and S2. No S3, S4 or murmurs. LUNGS: Clear to auscultation anteriorly ABDOMEN: Positive bowel sounds. Soft, nontender. No guarding or signs of an acute abdomen EXTREMITIES: No clubbing, cyanosis. Large lymphedematous lower extremities bilaterally, appropriate dressing in place to right lower extremity NEUROLOGICAL: No focal deficits PSYCHIATRIC: Appropriate mood and affect Assessment and plan: 1. Stenotrophomonas maltophilia bacteremia Low-grade fever 99.2 noted today. Persistent leukocytosis. We will consult infectious disease. Discussed with pharmacy and at this time will initiate Avycaz plus aztreonam as this covers both stenotrophomonas and Pseudomonas notedon most recent cultures. Will recheck ESR and CRP and consider podiatry consultation should his right foot not exhibit healing. Source of bacteremia very likely could be the PICC line he currently has in place. This will likely need removed but will discuss further with infectious disease. Will hold previously prescribed outpatient meropenem and vancomycin. 2. Leukocytosis 3. Eosinophilia This may be infectious in nature however the eosinophilia has been present for over a year. Unlikely parasitic or fungal infection but will discuss this further with infectious disease. Possible the patient could need oncology consult to rule out malignancy however this can be done as an outpatient. 4. Chronic kidney disease stage V Serum creatinine is at baseline. He is notably edematous in the lower extremities however I suspect much of this is chronic. We will continue home Lasix 40 mg p.o. twice daily. Continue sodium bicarbonate 1300 mg 3 times daily. Trend daily labs and consult nephrology if any worsening. 5. Anemia Multifactorial likely anemia of chronic kidney disease, anemia of chronic inflammation. MCV is normocytic at 95.5. Monitor for any clinical bleeding. Transfuse if the patient becomes further symptomatic with this. 6. Insulin-dependent diabetes mellitus Continue home basal bolus insulin regimen and acarbose 100 mg 3 times daily. Carb controlled diet. 7. Hypertension Continue home nifedipine 90 mg daily 8. Diabetic neuropathy Continue home 600 mg gabapentin nightly 9. Dyslipidemia Continue home atorvastatin 10 mg nightly 10. BPH Continue home Flomax 0.4 mg twice daily Disposition: Patient is admitted for multiple acute medical issues as above and will require ongoing monitoring of blood cultures, continuous IV antibiotics anddaily labs. He is thus admitted as an inpatient for a stay that will surpass greater than 2 midnights. Review of Systems Review of Systems All other systems reviewed & are negative unless noted below or in HPI [facility] Medical History Alcohol abuse Amputated toe of left foot ALL 5 TOES Anemia Anxiety BPH (benign prostatic hyperplasia) Cellulitis of left foot Chronic foot ulcer Depression Diabetes Foot drop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 function back to baseline. Jan, Hydronephrosis (ICD-10 - N13.30) Patient has recurrent hydronephrosis on the left side with hyperkalemia and metabolic acidosis. Will refer again to urology to follow-up on cystoscopy and stent placement. Patient did refuse the procedure during his hospital stay in November,. Risk of progression of CKD to ESRD related to obstructive uropathy has been discussed with the patient Jan, Hyperkalemia (ICD-10 - E87.5) Potassium in the high range of normal related to progressive chronic kidney disease and obstructive uropathy. Will discontinue potassium supplement. Continue furosemide Jan, Hypertensive chronic kidney disease with stage 1 through stage 4 chronic kidney disease, or unspecified chronic kidney disease (ICD-10 - I12.9) Blood pressure was quite variable according to the volume status. He still has edema. Continue losartan and nifedipine. He also on furosemide. We will avoid drop in the blood pressure significantly since he has a borderline renal function with high risk for progression to ESRD. Continue low-salt diet Jan, Diabetic nephropathy associated with type 2 diabetes mellitus (ICD-10 - E11.21) He follow-up with family practice clinic. He stated that diabetes is reasonably controlled. 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 He was evaluated by Dr. Landry in the hospital. Jan, PAD (peripheral artery disease) (ICD-10 - I73.9) Patient has history of peripheral arterial disease. He has a left tarsometatarsal amputation. He has a right foot wound with edema currently with wound VAC. He follow-up with wound clinic. Jan, Nephrolithiasis (ICD-10 - N20.0) Patient has bilateral nephrolithiasis with recurrent left hydronephrosis. He was referred to urology as stated above. [facility] Other 09-14-2022 Evaluation note* Encounter Date Diagnosis Assessment Notes Treatment Notes Treatment Clinical Notes Dec, Ulcer of right foot, limited to breakdown of skin (ICD-10 - L97.511) This patient is doing much better. I am pleased with his care in the condition of his wound. I think he has adequate blood supply to continue healing. My impression is based on the of his recent waveforms and noninvasive arterial studies which suggest good healing potential and a previous arteriogram completed by my partner Dr. Jesús Rocha which revealed good blood supply all the way to the foot. We will see the patient as needed in the future and I recommend nonoperative medical management with continued wound care dressings and offloading. Offloading is the most crucial aspect at this point. [facility] Other 09-02-2022 Hospital Discharge instructions Patient Education 12/07/2021 09:43:21 Hydronephrosis Hydronephrosis Hydronephrosis is the swelling of one or both kidneys due to a blockage that stops urine from flowing out of the body. Kidneys filter waste from the blood and produce urine. This condition can lead to kidney failure and may become life threatening if not treated promptly. What are the causes? Common causes of this condition include: Problems that occur when a baby is developing in the womb (congenital defect). These can include problems: ?In the kidneys. ?In the tubes that drain urine from the kidneys into the bladder (ureters). Kidney stones. Bladder infection. An enlarged prostate gland. Scar tissue from a previous surgery or injury. A blood clot. A tumor or cyst in the abdomen or pelvis. Cancer of the prostate, bladder, uterus, ovary, or colon. What are the signs or symptoms? Symptoms of this condition include: Pain or discomfort in your side (flank). Pain and swelling in your abdomen. Nausea and vomiting. Fever. Pain when passing urine. Feelings of urgency when you need to urinate. Urinating more often than normal. In some cases, you may not have any symptoms. How is this diagnosed? This condition may be diagnosed based on: Your symptoms and medical history. A physical exam. Blood and urine tests. Imaging tests, such as an ultrasound, CT scan, or MRI. A procedure in which a scope is inserted into the urethra and used to view parts of the urinary tract and bladder (cystoscopy). How is this treated? Treatment for this condition depends on where the blockage is, how long it has been there, and whatcaused it. The goal of treatment is to remove the blockage. Treatment may include: Antibiotic medicines to treat or prevent infection. A procedure to place a small, thin tube (stent) into a blocked ureter. The stent will keep the ureter open so that urine can drain through it. A nonsurgical procedure that crushes kidney stones with shock waves (extracorporeal shock wave lithotripsy). If kidney failure occurs, treatment may include dialysis or a kidney transplant. Follow these instructions at home: Take xrof-pkg-sxoteny and prescription medicines only as told by your health care provider. Rest and return to your normal activities as told by your health care provider. Ask your health care provider what activities are safe for you. Drink enough fluid to keep your urine pale yellow. If you were prescribed an antibiotic medicine, take it exactly as told by your health care provider. Do not stop taking the antibiotic even if you start to feel better. Keep all follow-up visits as told by your health care provider. This is important. Contact a health care provider if: You continue to have symptoms after treatment. You develop new symptoms. Your urine becomes cloudy or bloody. You have a fever. Get help right away if: You have severe flank or abdominal pain. You cannot drink fluids without vomiting. Summary Hydronephrosis is the swelling of one or both kidneys due to a blockage that stops urine from flowing out of the body. Hydronephrosis can lead to kidney failure and may become life threatening if not treated promptly. The goal of treatment is to treat the cause of the blockage. It may include insertion of stent intoa blocked ureter, a procedure to treat kidney stones, and antibiotic medicines. Follow your health care provider's instructions for taking care of yourself at home, including instructions about drinking fluids, taking medicines, and limiting activities. This information is not intended to replace advice given to you by your health care provider. Make sure you discuss any questions you have with your health care provider. Document Released: 01/19/2008 Document Revised: 04/04/2018 Document Reviewed: 04/04/2018 [employer] Patient Education 2020 [employer] 12/07/2021 09:43:20 Calorie Counting for Weight Loss Calorie Counting for Weight Loss Calories are units of energy. Your body needs a certain amount of calories from food to keep you going throughout the day. When you eat more calories than your body needs, your body stores the extra calories as fat. When you eat fewer calories than your body needs, your body tate fat to get the energy it needs. Calorie counting means keeping track of how many calories you eat and drink each day. Calorie counting can be helpful if you need to lose weight. If you make sure to eat fewer calories than your bodyneeds, you should lose weight. Ask your health care provider what a healthy weight is for you. For calorie counting to work, you will need to eat the right number of calories in a day in order to lose a healthy amount of weight per week. A dietitian can help you determine how many calories youneed in a day and will give you suggestions on how to reach your calorie goal. A healthy amount of weight to lose per week is usually 1 2 lb (0.5 0.9 kg). This usually means thatyour daily calorie intake should be reduced by 500 750 calories. Eating 1,200 1,500 calories per day can help most women lose weight. Eating 1,500 1,800 calories per day can help most men lose weight. What is my plan? My goal is to have calories per day. If I have this many calories per day, I should lose around pounds per week. What do I need to know about calorie counting? In order to meet your daily calorie goal, you will need to: Find out how many calories are in each food you would like to eat. Try to do this before you eat. Decide how much of the food you plan to eat. Write down what you ate and how many calories it had. Doing this is called keeping a food log. To successfully lose weight, it is important to balance calorie counting with a healthy lifestyle that includes regular activity. Aim for 150 minutes of moderate exercise (such as walking) or 75 minutes of vigorous exercise (such as running) each week. Where do I find calorie information? The number of calories in a food can be found on a Nutrition Facts label. If a food does not have aNutrition Facts label, try to look up the calories online or ask your dietitian for help. Remember that calories are listed per serving. If you choose to have more than one serving of a food, you will have to multiply the calories per serving by the amount of servings you plan to eat. Forexample, the label on a package of bread might say that a serving size is 1 slice and that there are 90 calories in a serving. If you eat 1 slice, you will have eaten 90 calories. If you eat 2 slices, you will have eaten 180 calories. How do I keep a food log? Immediately after each meal, record the following information in your food log: What you ate. Don't forget to include toppings, sauces, and other extras on the food. How much you ate. This can be measured in cups, ounces, or number of items. How many calories each food and drink had. The total number of calories in the meal. Keep your food log near you, such as in a small notebook in your pocket, or use a mobile eusebio or website. Some programs will calculate calories for you and show you how many calories you have left forthe day to meet your goal. What are some calorie counting tips? Use your calories on foods and drinks that will fill you up and not leave you hungry: ?Some examples of foods that fill you up are nuts and nut butters, vegetables, lean proteins, and high-fiber foods like whole grains. High-fiber foods are foods with more than 5 g fiber per serving. ?Drinks such as sodas, specialty coffee drinks, alcohol, and juices have a lot of calories, yet do not fill you up. Eat nutritious foods and avoid empty calories. Empty calories are calories you get from foods or beverages that do not have many vitamins or protein, such as candy, sweets, and soda. It is better to have a nutritious high-calorie food (such as an avocado) than a food with few nutrients (such as a bag of chips). Know how many calories are in the foods you eat most often. This will help you calculate calorie counts faster. Pay attention to calories in drinks. Low-calorie drinks include water and unsweetened drinks. Pay attention to nutrition labels for low fat or fat free foods. These foods sometimes have thesame amount of calories or more calories than the full fat versions. They also often have added sugar, starch, or salt, to make up for flavor that was removed with the fat. Find a way of tracking calories that works for you. Get creative. Try different apps or programs ifwriting down calories does not work for you. What are some portion control tips? Know how many calories are in a serving. This will help you know how many servings of a certain food you can have. Use a measuring cup to measure serving sizes. You could also try weighing out portions on a kitchenscale. With time, you will be able to estimate serving sizes for some foods. Take some time to put servings of different foods on your favorite plates, bowls, and cups so you know what a serving looks like. Try not to eat straight from a bag or box. Doing this can lead to overeating. Put the amount you would like to eat in a cup or on a plate to make sure you are eating the right portion. Use smaller plates, glasses, and bowls to prevent overeating. Try not to multitask (for example, watch TV or use your computer) while eating. If it is time to eat, sit down at a table and enjoy your food. This will help you to know when you are full. It will also help you to be aware of what you are eating and how much you are eating. What are tips for following this plan? Reading food labels Check the calorie count compared to the serving size. The serving size may be smaller than what youare used to eating. Check the source of the calories. Make sure the food you are eating is high in vitamins and proteinand low in saturated and trans fats. Shopping Read nutrition labels while you shop. This will help you make healthy decisions before you decide to purchase your food. Make a grocery list and stick to it. Cooking Try to cook your favorite foods in a healthier way. For example, try baking instead of frying. Use low-fat dairy products. Meal planning Use more fruits and vegetables. Half of your plate should be fruits and vegetables. Include lean proteins like poultry and fish. How do I count calories when eating out? Ask for smaller portion sizes. Consider sharing an entree and sides instead of getting your own entree. If you get your own entree, eat only half. Ask for a box at the beginning of your meal and put the rest of your entree in it so you are not tempted to eat it. If calories are listed on the menu, choose the lower calorie options. Choose dishes that include vegetables, fruits, whole grains, low-fat dairy products, and lean protein. Choose items that are boiled, broiled, grilled, or steamed. Stay away from items that are buttered,battered, fried, or served with cream sauce. Items labeled crispy are usually fried, unless stated otherwise. Choose water, low-fat milk, unsweetened iced tea, or other drinks without added sugar. If you want an alcoholic beverage, choose a lower calorie option such as a glass of wine or light beer. Ask for dressings, sauces, and syrups on the side. These are usually high in calories, so you should limit the amount you eat. If you want a salad, choose a garden salad and ask for grilled meats. Avoid extra toppings like ha, cheese, or fried items. Ask for the dressing on the side, or ask for olive oil and vinegar or lemon to use as dressing. Estimate how many servings of a food you are given. For example, a serving of cooked rice is cup orabout the size of half a baseball. Knowing serving sizes will help you be aware of how much food you are eating at restaurants. The list below tells you how big or small some common portion sizes arebased on everyday objects: ?1 oz 4 stacked dice. ?3 oz 1 deck of cards. ?1 tsp 1 . ?1 Tbsp a ping-pong ball. ?2 Tbsp 1 ping-pong ball. ? cup baseball. ?1 cup 1 baseball. Summary Calorie counting means keeping track of how many calories you eat and drink each day. If you eat fewer calories than your body needs, you should lose weight. A healthy amount of weight to lose per week is usually 1 2 lb (0.5 0.9 kg). This usually means reducing your daily calorie intake by 500 750 calories. The number of calories in a food can be found on a Nutrition Facts label. If a food does not have aNutrition Facts label, try to look up the calories online or ask your dietitian for help. Use your calories on foods and drinks that will fill you up, and not on foods and drinks that will leave you hungry. Use smaller plates, glasses, and bowls to prevent overeating. This information is not intended to replace advice given to you by your health care provider. Make sure you discuss any questions you have with your health care provider. Document Released: 03/24/2006 Document Revised: 12/11/2018 Document Reviewed: 02/21/2017 [employer] Patient Education 2020 [employer]. Follow Up Care 11/23/2021 11:37:24 With:Anabela HOLLOWAY, Kiko Gautam, URL, [facility] Address: When: Unknown [facility] [place] 09-01-2022 Evaluation note* Encounter Date Diagnosis Assessment Notes Treatment Notes Treatment Clinical Notes Dec, Non-healing ulcer of right foot with fat layer exposed (ICD-10 - L97.512) Patient has been tolerating IV antibiotics to date. Patient did not want to have any type of surgery despite this was suggested to him by the vascular team. Obviously with less than optimal blood supply to the right lower extremity wound healing may be and will be challenging. His course will be extended through the third week in December and then at that point in time we will stop and observe him off antibiotics. Obviously my concern is that this wound is not going to heal given the lack of blood supply but at this time based on exam today I do not see evidence outwardly of significant infection. His right lower extremity overall is much better than it had been in the hospital. It is clearly not erythematous and it is cool to touch. Dec, Receiving intravenous antibiotic treatment at home (ICD-10 - Z79.2) [facility] Other 09-01-2022 History of Present illness Narrative* Patient is new to this provider. He resides in a [facility], and has multiple cardiac risk factors including insulin-dependent diabetes. He is being seen in cardiology consultation regarding preoperative cardiac risk assessment at the request of Dr. Kiko Bartlett, urology, procedure plan is cystoscopy under anesthesia, with laser/basket and left ureteral stent? * And EKG during office visit December 2021 showed sinus tachycardia right bundle branch block, and nonspecific ST-T abnormalities. * Patient reports no chest pressure tightness heaviness palpitations lightheadedness presyncope syncope orthopnea or falls. Problem is that his activity level is very limited gets around in a wheelchair, [facility] resident. He is status post left transmetatarsal amputation, and his right foot is bandaged completely, for a nonhealing ulcer, which has been there for about 4 to 5 months. Followed by wound nurse once a week at the [facility]. * Continues to smoke. * EKG today normal sinus rhythm 90 bpm TN interval 180 ms QRS duration 112 ms QTC 442 ms incomplete right bundle branch block left axis deviation overall pattern is unchanged compared to a previous EKGfrom January 2022, compared to EKG from December 2021 heart rate has decreased. Left atrial abnormality is noted. Cannot exclude septal myocardial infarction. * Patient is status post left transmetatarsal amputation, is surgery center to be scheduled for February 26, his blood pressure is above target 144/78, his laboratory data show GFR of 22 potassium 5.4 creatinine clearance of 26, glucose 101, hemoglobin 10.1 hematocrit 31.7 MCV 88 blood cell count 12.7 thousand platelet count 225k. Most of the laboratory data are from November 2021. * BMP from January 11, 2022 shows BUN of 57 creatinine of 3.84 potassium 5.4 GFR of 16. * Assessment: * 1. Asymptomatic diabetes * 2. Hypertension * 3. Chronically disease stage IV-either related to hypertension or diabetes or both * 4. Evidence of peripheral vascular disease characterized by left foot transmetatarsal amputation, nonhealing wound right lower extremity predominantly the foot, I was unable to Doppler distal pulses in his left foot the right foot is bandaged, part of the reason is that his skin is very hard, either from chronic venous stasis or other reasons. * 5. Abnormal EKG showing right bundle branch block left axis deviation and small septal Q waves and left atrial abnormality unchanged compared to prior EKG from January 2022 and December 2021 * 6. Very sedentary lifestyle gets around in the wheelchair has not walked for several months. * 7. The likelihood of coronary artery disease remains high * 8. Nicotine dependence * 9. Anemia possibly related to renal failure * 10. Tendency for hyperkalemia * 11. Allergy to lisinopril-details not available, patient is on losartan. * 12. Increased BMI * Recommendations: * 1. Impossible to assess this patient on clinical grounds, except to say that he does not have a heart murmur on auscultation and he does not appear to be volume overloaded. He is however on Lasix. * 2. Proceed with echocardiogram and Lexiscan Myoview * 3. Discussed nicotine abstinence * 4. Consider referral to wound clinic or vascular surgery as indicated, defer to primary * 5. I will review results of Lexiscan Myoview and echocardiogram and make further recommendations. * 6. Given persistent hyperkalemia, consider discontinuation of losartan, especially if LV systolic function is preserved. May increase Procardia XL or use diltiazem for blood pressure management. * We are trying to expedite his testing. * If there are major abnormalities on testing, we will have to discuss further with patient about additional work-up. * For now, as needed follow-up is recommended. Patient prefers this approach as well. * Thank you for allowing us to participate in this patient's care, please do not hesitate to call if further questions arise, * Sincerely, * Renata Wyatt MD [facility] [address] DO Work Phone: [phone]) 665-143009-01-2022 History of Present illness Narrative* Patient is new to this provider. He resides in a [facility], and has multiple cardiac risk factors including insulin-dependent diabetes. He is being seen in cardiology consultation regarding preoperative cardiac risk assessment at the request of Dr. Kiko Bartlett, urology, procedure plan is cystoscopy under anesthesia, with laser/basket and left ureteral stent? * And EKG during office visit December 2021 showed sinus tachycardia right bundle branch block, and nonspecific ST-T abnormalities. * Patient reports no chest pressure tightness heaviness palpitations lightheadedness presyncope syncope orthopnea or falls. Problem is that his activity level is very limited gets around in a wheelchair, [facility] resident. He is status post left transmetatarsal amputation, and his right foot is bandaged completely, for a nonhealing ulcer, which has been there for about 4 to 5 months. Followed by wound nurse once a week at the [facility]. * Continues to smoke. * EKG today normal sinus rhythm 90 bpm TN interval 180 ms QRS duration 112 ms QTC 442 ms incomplete right bundle branch block left axis deviation overall pattern is unchanged compared to a previous EKGfrom January 2022, compared to EKG from December 2021 heart rate has decreased. Left atrial abnormality is noted. Cannot exclude septal myocardial infarction. * Patient is status post left transmetatarsal amputation, is surgery center to be scheduled for February 26, his blood pressure is above target 144/78, his laboratory data show GFR of 22 potassium 5.4 creatinine clearance of 26, glucose 101, hemoglobin 10.1 hematocrit 31.7 MCV 88 blood cell count 12.7 thousand platelet count 225k. Most of the laboratory data are from November 2021. * BMP from January 11, 2022 shows BUN of 57 creatinine of 3.84 potassium 5.4 GFR of 16. * Assessment: * 1. Asymptomatic diabetes * 2. Hypertension * 3. Chronically disease stage IV-either related to hypertension or diabetes or both * 4. Evidence of peripheral vascular disease characterized by left foot transmetatarsal amputation, nonhealing wound right lower extremity predominantly the foot, I was unable to Doppler distal pulses in his left foot the right foot is bandaged, part of the reason is that his skin is very hard, either from chronic venous stasis or other reasons. * 5. Abnormal EKG showing right bundle branch block left axis deviation and small septal Q waves and left atrial abnormality unchanged compared to prior EKG from January 2022 and December 2021 * 6. Very sedentary lifestyle gets around in the wheelchair has not walked for several months. * 7. The likelihood of coronary artery disease remains high * 8. Nicotine dependence * 9. Anemia possibly related to renal failure * 10. Tendency for hyperkalemia * 11. Allergy to lisinopril-details not available, patient is on losartan. * 12. Increased BMI * Recommendations: * 1. Impossible to assess this patient on clinical grounds, except to say that he does not have a heart murmur on auscultation and he does not appear to be volume overloaded. He is however on Lasix. * 2. Proceed with echocardiogram and Lexiscan Myoview * 3. Discussed nicotine abstinence * 4. Consider referral to wound clinic or vascular surgery as indicated, defer to primary * 5. I will review results of Lexiscan Myoview and echocardiogram and make further recommendations. * 6. Given persistent hyperkalemia, consider discontinuation of losartan, especially if LV systolic function is preserved. May increase Procardia XL or use diltiazem for blood pressure management. * We are trying to expedite his testing. * If there are major abnormalities on testing, we will have to discuss further with patient about additional work-up. * For now, as needed follow-up is recommended. Patient prefers this approach as well. * Thank you for allowing us to participate in this patient's care, please do not hesitate to call if further questions arise, * Sincerely, * Renata Wyatt MD [facility] Work Phone: [phone] 159-643208-17-2022 Discharge summary Author Landon Grullon [facility] November 21, 2021 7:38pm Note Date/Time November 21, 2021 5: 27pm [facility] [address] [place] [address] Discharge Summary Signed Patient: Simon Lott MR#: [id number] : 1950 Acct:[id number] Age/Sex: 71 / M Adm Date: 2 Loc: Room: [address] [place] [address]: Lnadon Grullon MD Copies to: DO Landon Mays MD~ Providers Date of Discharge: 11/21/21 Discharging Provider: Landon Grullon Primary Care Provider: Maye Murray Consults: 11/14/21 17:38 Consult to Nephrology Routine Consult to Podiatry Routine Consult to Vascular Surgery Routine 11/17/21 16:24 Consult to Occupational Therapy Routine Consult to Physical Therapy Routine 11/18/21 15:41 Consult to Infectious Diseases Routine 11/19/21 15:53 Vascular Lab PICC Consult Routine 11/19/21 15:57 Consult to Urology Routine 11/21/21 08:41 Consult to RN PLASTICS Routine Discharge Diagnosis (1) Type 2 diabetes mellitus with foot ulcer: (2) Sepsis: (3) Hydronephrosis, left: (4) High anion gap metabolic acidosis: (5) Hyperkalemia: (6) CKD (chronic kidney disease) stage 4, GFR 15-29 ml/min: (7) Hypertensive chronic kidney disease with stage 1 through stage 4 chronic kidney disease, or unspecified chronic kidney disease: (8) Type 2 diabetes mellitus with diabetic chronic kidney disease: (9) Anemia: (10) Osteomyelitis of foot: Final Diagnosis Final Discharge Diagnosis: As above Summary Hospital Course Hospital course: Mr. Lott is a 71-year-old male with PMH of CKD stage III, insulin- dependent T2DM, atrial fibrillation, PVD, chronic diabetic foot ulcer who presented to the emergency department from his [facility] facility with sepsis. Patient was also noted to have acute kidney injury on his CKD stage IIIand nephrology was consulted for their assessment. Given his foot findings bothpodiatry and vascular surgery were consulted as well. He was also started on broad-spectrum antibiotic therapy with IV vancomycin and Invanz. Vascular surgery recommended likely BKA or AKA in the future, but this was not needed urgently. Podiatry noted that patient's wounds were essentially unchanged, but x-rays and MRI did show questionable osteomyelitis in the distal fifth metatarsal. Podiatry did not recommend further surgical intervention during this hospitalization. Patient was maintained on broad-spectrum IV antibiotic therapy while inpatient. Ultimately, was recommended for 10 days of IV antibiotic therapy with vancomycin and Invanz. PICC line was placed, and patient was plan to continue this course at his retirement facility. Also of note, patient found to have left-sided hydronephrosis on CT imaging of the abdomen and pelvis. Renal function remained essentially stable with creatinine of around 3.4, though this was higher than patient's previous baseline. In the past few months, patient did have ureteral stent placed and stone removal by urology. Urology came to assess patient during this visit and given patient's stable creatinine, and his election to not proceed with further surgical intervention, he was recommended to follow-up as an outpatient. Patient was found to be COVID-19 positive on admission, and was worried about increased risks of procedure which were explained to him prior to performing any urologic intervention. 40 minutes spent coordinating the discharge of this patient Time Spent with Patient Time spent providing/coordinating discharge services (# min): 40 Diagnostic Studies Completed and Pending Studies Pending studies at discharge: 11/22/21 05:00 Basic Metabolic Panel [CHEM] IN AM Complete Blood Count Auto Diff IN AM 11/22/21 18:00 Vancomycin,Random [TOX] Timed 11/23/21 05:00 Basic Metabolic Panel [CHEM] IN AM Complete Blood Count Auto Diff IN AM 11/24/21 05:00 Basic Metabolic Panel [CHEM] IN AM Complete Blood Count Auto Diff IN AM Labs on day of discharge: 11/21/21 16:34: POC Glucose 155 11/21/21 11:56: POC Glucose 160 11/21/21 07:18: POC Glucose 110, POC Glucose Comment Glu2: cleaned meter 11/21/21 06:01: PHA Creatinine Clear 25.89, Sodium 138, Potassium 3.8, Chloride 105, Carbon Dioxide 23.6, BUN 45 H, Creatinine 3.41 H, Est GFR ( Amer) 22, Est GFR (Non-Af Amer) 18, Glucose 104 H, Calcium 8.1 L 11/21/21 06:01: Corrected WBC 15.6 H, Uncorrected WBC Count 15.6 H, RBC 3.06 L, Hgb 8.3 L, Hct 25.9 L, MCV 84.4, MCH 27.0 L, MCHC 32.0 L, RDW 17.7 H, Plt Count 263, MPV 10.6 H, Neut % (Auto) 54.1, Lymph % (Auto) 31.7, Brewster % (Auto) 9.6, Eos% (Auto) 3.4, Baso % (Auto) 1.2, Neut # (Auto) 8.4 H, Lymph # (Auto) 5.0 H, Brewster# (Auto) 1.5 H, Eos # (Auto) 0.5 H, Baso # (Auto) 0.2, Nucleated RBC % (auto) 0.1, Platelet Estimate Normal, Plt Morphology Comment Normal, RBC Morphology N/A,Hypochromasia Slight, Anisocytosis Slight, Target Cells Moderate, Schistocytes Slight 11/20/21 21:13: POC Glucose 91, POC Glucose Comment Glu2: cleaned meter 11/20/21 16:43: POC Glucose 127 Exam Physical Exam Vital Signs: Temp Pulse Resp BP Pulse Ox O2 Del Method 97.6 F 92 H 18 172/85 H 94 L Room Air 11/21/21 11:55 11/21/21 11:55 11/21/21 11:55 11/21/21 11:55 11/21/21 11:55 11/21/21 11:55 Narrative: Constitutional: Elderly AA male, resting in bed in no acute distress HEENT: Moist mucous membranes, neck supple, no JVD Cardiovascular: RRR, no M/R/G, normal S1 and S2 Respiratory: Clear to auscultation bilaterally, no wheezes, rales or rhonchi GI: Soft, NTND, NABS, no rebound tenderness or guarding : Sanchez catheter in place Extremities: Bilateral lower extremities indurated with stasis dermatitis changes bilaterally in the distal legs. Feet are wrapped bilaterally in dressings covering patient's chronic wounds. Not visualized on today's examination Neuro: AAOx3, no focal deficits. 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 terminologist [facility] Care/Resident Activity: Ambulate as Tolerated Diet: Diabetic Additional Instructions: medical terminologist care facility to manage care: - PT/OT eval and treat - Routine vital signs - Fingerstick blood sugar ACHS - Boost glucose control TID with meals - COVID-19 precautions per protocol-- patient tested positive for COVID-19 on11/14/21 - Maintain right arm PICC line for IV antibiotics, routine dressing changes/flushes per facility protocol *Placed on 11/21/21 - Monitor for increased signs of infection - Monitor intake and outout - Routine skin care and assessments - Perform podiatry and genitourinary assessments - Change dressing every 2 days: *right foot and heel till seen by podiatry- allow vashe moistened gauze soak on wound bed for 5 min., wipe free loose debris, apply therahoney sheet, then fluffed super spounge, top with abd pads, secure with kerlix, then 4 inch cristina wraps - Change dressing every 3 days: *Mepilex border foam to coccyx scarring for added protection - Maintain and perform routine care to sanchez catheter until seen by urology *Placed on 11/14/21 - Care to be managed by [facility] providers. Instructions: [facility] COVID-19 Discharge Instructions Prescriptions: New furosemide 40 mg Tablet 40 mg PO BID@0800,1600 Qty: 0 0RF polyethylene glycol 3350 [Miralax] 17 gram Powder In Packet 17 g PO DAILY Qty: 0 0RF Ertapenem [INVanz] 0.5 GM Sodium Chloride 0.9% 100 ml [0.9% Sodium Chloride 100 ml] 100 ML 200 mls/hr IV Q24H Ordered By: Landon Grullon MD Last Taken: 11/21/21 18:32 200 mls/hr nifedipine 30 mg Tablet Extended Release 24 Hr 30 mg PO DAILY Qty: 0 0RF sodium bicarbonate 650 mg Tablet 650 mg PO TID Qty: 0 0RF Saccharomyces boulardii [Florastor] 250 mg Capsule 250 mg PO BID.WITH.MEALS Qty: 0 0RF gabapentin 600 mg Tablet 600 mg PO QPM Qty: 0 0RF vancomycin in dextrose 5 % 1 gram/250 mL solution See Rx Instructions .ROUTE .COMPLEX Qty: 5000 0RF Rx Instructions: For a TOTAL of 10 days of treatment Continued tamsulosin [Flomax] 0.4 mg capsule,extended release 24hr 0.4 mg PO BID Label Comments: acetaminophen [Tylenol] 325 mg Tablet 650 mg PO Q4H PRN (Reason: Pain) duloxetine 20 mg Capsule,Delayed Release(Dr/Ec) 60 mg PO BID insulin aspart U-100 [Novolog U-100 Insulin aspart] 100 unit/mL Solution See Protocol SUBCUT ACHS Protocol: Custom Scale - Custom (Blank) Condition: Dose/Route: Instruction: Condition: Fingerstick Blood Glucose Dose/Route: Insulin Units Condition: 151-200mg/dl Dose/Route: 2 unit Condition: 201-250mg/dl Dose/Route: 4 units Condition: 251-300mg/dl Dose/Route: 6 units Condition: 301-350mg/dl Dose/Route: 8 units Condition: 351-400mg/dl Dose/Route: 10 units Condition: 401-450mg/dl Dose/Route: 12 units Condition: 451-500mg/dl Dose/Route: 14 units Condition: Greater than or = 500 mg/dl Instruction: Call Provider Condition: Custom Scale 1:___ Instruction: GIVE 1 UNIT OF ASPART FOR EVERY ___MG GLUCOSE Instruction: STARTING AT 150MG AT BG CHECKS Protocol Text: *If the corrective scale dose has been administered within the past 4 hours, do not use corrective scale again unless approved by prescriber* Rx Instructions: 151-200 2 units 201-250 4 units 251-300 6 units 301-350 8 units 351-400 10 units 401-450 12 units 451-500 14 units over 500 [address] alpha lipoic acid 300 mg Capsule 200 mg PO DAILY atorvastatin 10 mg tablet 10 mg PO HS clopidogrel 75 mg tablet 75 mg PO DAILY amitriptyline 10 mg tablet 10 mg PO HS ammonium lactate 12 % Cream 1 applic TOPICAL QSHIFT ascorbic acid (vitamin C) 500 mg Tablet 500 mg PO DAILY acarbose 100 mg Tablet 100 mg PO TID Levemir FlexTouch U-100 Insuln 100 unit/mL (3 mL) insulin pen 42 unit SUBCUT DAILY Label Comments: inject 30 units subcutaneously once daily melatonin 5 mg Tablet 5 mg PO HS PRN (Reason: Insomnia) potassium chloride 20 mEq Tablet Extended Release 20 meq PO DAILY ferrous sulfate 324 mg (65 mg iron) tablet,delayed release (DR/EC) 325 mg PO QMWF folic acid 1 mg tablet 1 mg PO DAILY Label Comments: take 1 tablet by mouth once daily loteprednol etabonate 0.5 % Drops,Suspension 1 drp Eye-Left QID Dakin's Solution 0.25 % Solution 1 irrig TOPICAL BID Changed losartan 25 mg tablet 50 mg PO DAILY Qty: 30 3RF Discontinued gabapentin [Neurontin] 800 mg Tablet 800 mg PO TID Follow Up: Johan Taylor MD [Active Staff] - 01/31/22 1:20 pm (Post hospital follow-up appointment. Please call to reschedule if needed. ) Bhakti Ochoa DPM [Active Staff] - (Please call office for a follow-up appointment. ) Riya Pitt MD [Active Staff] - 12/06/21 1:30 pm (Post hospital follow-up appointment. Please call to reschedule if needed. ) Master Mauricio MD [Active Staff] - 12/19/21 10:30 am (Please call office to reschedule if this time does not work for you. Thank you.) Kiko Corbett MD [Active Staff] - (The office was notified of your discharge andneed for cystoscopy. Please contact the office on 11/24/21 to reschedule the procedure. ) Documented By: Landon Grullon MD 2 1726 Signed By: <Electronically signed by Landon Grullon MD> 11/21/211937 [facility] Work Phone: [phone] Progress note Author Johan Taylor [facility] November 21, 2021 5:16pm Note Date/Time November 21, 2021 5: 16pm [facility] [address] [place], [place] [id number] Nephrology Progress Note Signed Patient: Simon Lott MR#: [id number] : 1950 Acct:[id number] Age/Sex: 71 / M Adm Date: 2 Loc: 4 Room: [address] [place] [address] Type: ADM IN Attending Dr: Landon Grullon MD Copies to: ~ Date of Service: 11/21/2021 Subjective Subjective Narrative: Mr. Lott is a 71-year male with medical history of CKD, diabetes mellitus, hypertension, anemia, secondary hyperparathyroidism, alcoholic liver disease, PAD, diabetic foot ulcer, CVA, hepatitis C and nephrolithiasis. [facility] was [facility] the [facility] due to the fever. In ER, he was found to have hyperkalemia serum potassium 6.1 mg/L and metabolic acidosis with serum bicarbonate 17 mmol/L. Patient was also noted to have a leukocytosis and tachycardia. He had a Right foot x-ray which showed finding concerning for osteomyelitis of the fifth metatarsal bone. Patient was given IV fluid and was started on broad-spectrum antibiotics for diabetic foot infection and sepsis. Patient was given sodium bicarbonate, insulin with D50 and Lokelma in the emergency room for hyperkalemia. On review record it appears that patient has a longstanding CKD with baseline creatinine around 3.2?3.5 mg/dL. His renal function has been declining due to the progression of his CKD. He used to follow uo in our renal clinic for CKD care but missed the last appointment. Nephrology is consulted for his CKD, fluid overload, hyperkalemia and metabolic acidosis management. Interval history: Patient had a PICC line today in preparation to discharge on antibiotics to his [facility]. He did refuse invasive intervention during hospitalization including amputation or cystoscopy that will be done as outpatient for left hydronephrosis. Blood pressure is variable during hospital stay however seems to be improving after addition of losartan. Creatinine about the same 3.4 mg/dL. He still on vancomycin and ertapenem by ID for skin and soft tissue infections. He was seen by the vascular surgery for infected right foot. Vascular surgery recommended nonurgent BKA or AKA due to his severe PAD. He was also seen by thepodiatry and option of hyperbaric oxygen was discussed as patient is refusing BKA. Exam Physical Exam Vital Signs: Temp Pulse Resp BP Pulse Ox O2 Del Method 36.4 C 92 H 18 172/85 H 94 L Room Air 11/21/21 11:55 11/21/21 11:55 11/21/21 11:55 11/21/21 11:55 11/21/21 11:55 11/21/21 11:55 Narrative: Constitutional: AA male,, looks at his stated age resting in bed in no acute distress HEENT: Moist mucous membranes, neck supple, no JVD Cardiovascular: Distant heart sound, RRR, normal S1 and S2. No murmur or rub. Respiratory: Clear to auscultation bilaterally, no wheezes, rales or rhonchi GI: Soft, nontender with no palpable organs or masses. : Sanchez catheter in place Extremities: Both feet and dressing covering chronic wounds. Bilateral lower extremities indurated with stasis dermatitis changes bilaterally in the distal legs. Neuro: AAOx3, no focal deficits. Skin: Chronic wounds on the feet bilaterally Psych: Calm, cooperative and conversant Objective Intake and Output I&O: Intake & Output 11/18/21 11/19/21 11/20/21 11/21/21 23:59 23:59 23:59 23:59 Intake Total 1600 / 1600 1100 / 1100 1110 / 1110 880 / 880 Output Total 3200 / 3200 2425 / 2425 2150 / 2150 1125 / 1125 Balance -1600 / -1600 -1325 / -1325 -1040 / -1040 -245 / -245 Weight 110 kg 111.1 kg 108.4 kg 107 kg Meds and Allergies Meds: Active Medications Acarbose (Acarbose 50 Mg Tablet) 100 mg PO TID.WITH.MEALS JULIANN Stop: 11/15/22 07:59 Last Admin: 11/21/21 16:46 Dose: 100 mg Acetaminophen (Acetaminophen 325 Mg Tablet) 650 mg PO Q4H PRN PRN Reason: Pain Stop: 11/14/22 17:41 Last Admin: 11/15/21 18:15 Dose: 650 mg Amitriptyline HCl (Amitriptyline 10 Mg Tablet) 10 mg PO HS JULIANN Stop: 11/14/22 21:59 Last Admin: 11/20/21 21:12 Dose: 10 mg Ammonium Lactate (Ammonium Lactate 12% Lot 226 Gm Bottle) 1 applic TOPICAL QSHIFT JULIANN Stop: 11/14/22 21:59 Last Admin: 11/21/21 16:46 Dose: 1 applic Ascorbic Acid (Ascorbic Acid 500 Mg Tablet) 500 mg PO DAILY JULIANN Stop: 11/15/22 08:59 Last Admin: 11/21/21 09:22 Dose: 500 mg Atorvastatin Calcium (Atorvastatin 10 Mg Tablet) 10 mg PO HS JULIANN Stop: 11/14/22 21:59 Last Admin: 11/20/21 21:12 Dose: 10 mg Clopidogrel Bisulfate (Clopidogrel Bisulfate 75 Mg Tablet) 75 mg PO DAILY JULIANN Stop: 11/15/22 08:59 Last Admin: 11/21/21 09:21 Dose: 75 mg Dextrose (Dextrose 50% In Water 25 Gm/50 Ml Syringe) 0 gm IV-PUSH PRN PRN PRN Reason: Hypoglycemia Stop: 11/14/22 17:37 Duloxetine HCl (Duloxetine 60 Mg Capsule.) 60 mg PO DAILY JULIANN Stop: 11/16/22 08:59 Last Admin: 11/21/21 09:23 Dose: 60 mg Ferrous Sulfate (Ferrous Sulfate 324 Mg Tablet.) 324 mg PO MoWeFr@0900 JULIANN Stop: 11/16/22 08:59 Last Admin: 11/21/21 09:22 Dose: 324 mg Folic Acid (Folic Acid 1 Mg Tablet) 1 mg PO DAILY JULIANN Stop: 11/15/22 08:59 Last Admin: 11/21/21 09:22 Dose: 1 mg Furosemide (Furosemide 40 Mg Tablet) 40 mg PO BID@0800,1600 JULIANN Stop: 11/21/22 07:59 Last Admin: 11/21/21 16:45 Dose: 40 mg Gabapentin (Gabapentin 600 Mg Tablet) 600 mg PO QPM JULIANN Stop: 11/15/22 20:59 Last Admin: 11/20/21 21:13 Dose: 600 mg Glucose (Dextrose 40% Gel 15 Gm Tube) 0 gm PO PRN PRN PRN Reason: Hypoglycemia Stop: 11/14/22 17:37 Heparin Sodium (Porcine) (Heparin 5,000 Unit/Ml Vial) 5,000 unit SUBCUT Q12HR JULIANN Stop: 11/14/22 20:59 Last Admin: 11/21/21 09:23 Dose: 5,000 unit Hydralazine HCl (Hydralazine 20 Mg/Ml Vial) 10 mg IV-PUSH Q4H PRN PRN Reason: Hypertension Stop: 11/14/22 21:49 Last Admin: 11/15/21 15:59 Dose: 10 mg Ertapenem 0.5 gm/ Sodium (Chloride) 100 mls @ 200 mls/hr IV Q24H [facility] Stop: 11/20/22 16:59 Last Admin: 11/20/21 17:30 Dose: 200 mls/hr Insulin Aspart (Insulin Aspart 300 Units/3 Ml Insuln.Pen) 0 units SUBCUT TID.WM.HS [facility]; Protocol Stop: 11/14/22 21:59 Last Admin: 11/21/21 13:48 Dose: Not Given Insulin Detemir (Insulin Detemir 300 Units/3 Ml Insuln.Pen) 42 units SUBCUT DAILY [facility] Stop: 11/15/22 08:59 Last Admin: 11/21/21 09:25 Dose: 42 units Losartan Potassium (Losartan 50 Mg Tablet) 50 mg PO DAILY [facility] Stop: 11/18/22 08:59 Last Admin: 11/21/21 09:22 Dose: 50 mg Loteprednol Etabonate (Loteprednol 0.5% Op Susp 100 Drops/5 Ml Bottle) 1 drops EYE-LEFT QID [facility] Stop: 11/14/22 17:59 Last Admin: 11/21/21 16:45 Dose: 1 drops Melatonin (Melatonin 5 Mg Tablet) 5 mg PO HS PRN PRN Reason: Insomnia Stop: 11/14/22 17:41 Last Admin: 11/20/21 21:13 Dose: 5 mg Metoprolol Tartrate (Metoprolol Tartrate 5 Mg/5 Ml Vial) 5 mg IV-PUSH Q4H PRN PRN Reason: Blood Pressure Stop: 11/14/22 21:49 Nifedipine (Nifedipine Er.24hr 30 Mg Tab.Er.24) 30 mg PO DAILY [facility] Stop: 11/18/22 15:39 Last Admin: 11/21/21 09:22 Dose: 30 mg Polyethylene Glycol (Polyethylene Glycol 3350 17 Gm Powd.Pack) 17 gm PO DAILY [facility] Stop: 11/23/21 19:06 Last Admin: 11/21/21 09:22 Dose: 17 gm Saccharomyces Boulardii (Saccharomyces Boulardii 250 Mg Capsule) 250 mg PO BID.WITH.MEALS [facility] Stop: 11/15/22 07:59 Last Admin: 11/21/21 16:46 Dose: 250 mg Sodium Bicarbonate (Sodium Bicarbonate 650 Mg Tablet) 650 mg PO TID [facility] Stop: 11/15/22 13:59 Last Admin: 11/21/21 16:46 Dose: 650 mg Sodium Chloride (Sodium Chloride 0.9 % 10 Ml Syringe) 0 ml IV-PUSH PRN PRN PRN Reason: Flush Stop: 11/14/22 12:53 Last Admin: 11/20/21 09:30 Dose: 10 ml Sodium Chloride (Sodium Chloride 0.9 % 10 Ml Syringe) 0 ml IV-PUSH QSHIFT JULIANN Stop: 11/14/22 21:59 Last Admin: 11/21/21 06:09 Dose: 10 ml Sodium Hypochlorite (Sodium Hypochlorite 0.25% 473 Ml Solution) 0 ml TOPICAL BID JULIANN Stop: 11/14/22 20:59 Last Admin: 11/21/21 13:40 Dose: Not Given Tamsulosin HCl (Tamsulosin 0.4 Mg Cap.Er.24h) 0.4 mg PO BID JULIANN Stop: 11/14/22 20:59 Last Admin: 11/21/21 09:22 Dose: 0.4 mg Vancomycin HCl (Vancomycin - Pharmacy Dosing 1 Each Miscell) 1 each IV PRN PRN; Protocol PRN Reason: ZPawan.Pharmacy Consult Allergies codeine Allergy (Verified 05/18/21 09:55) Unknown Reaction lisinopril Allergy (Verified 05/18/21 09:55) Swelling of Lip/Tongue/Throat Results Labs CBC & Chem 7: 11/21/21 06:01 11/21/21 06:01 Labs: 11/21/21 06:01 BUN 45 H Creatinine 3.41 H Radiology Impressions Impressions - last 24 hours: Impressions Chest X-Ray 11/21/21 10:48 IMPRESSION: Satisfactory positioning of a right-sided PICC line. Mild interstitial prominence is noted bilaterally. Impression dictated by: Marino Dorsey M.D.11/21/2021 11:09 AM Dictation Location: [place] [address] Any impression(s) listed above is documentation that was entered by the reading physician into a diagnostic report(s) for Simon Lott. I have reviewed the report(s) and am incorporating any findings in the treatment plan of this patient where applicable. A&P - Nephrology Assessment/Plan (1) Hydronephrosis, left: Assessment/Problem Details: He has had persistent left hydronephrosis and hydroureter. He has a history of bilateral nephrolithiasis s/p intervention in 07/[address] Giles. Serum creatinine is slightly worse than baseline 2.5 mg/dL in the setting of cellulitis however he also has obstructive uropathy. Urology was consulted and the patient is going to have cystoscopy and retrograde venogram with possible stent placement that is scheduled as outpatient since patient is not willing to do invasive intervention at this point.. (2) High anion gap metabolic acidosis: Assessment/Problem Details: Acidosis did improve with diuresis and sodium bicarbonate (3) Hyperkalemia: Assessment/Problem Details: He has hyperkalemia and due to the combination of the CKD, metabolic acidosis, potassium supplement and losartan. He is back on losartan with normal potassium off potassium supplements. (4) CKD (chronic kidney disease) stage 4, GFR 15-29 ml/min: Assessment/Problem Details: He has a CKD due to the diabetic kidney disease and hypertensive nephrosclerosis. Baseline creatinine has been there was between 2.5 to 3 mg/dL. (5) Sepsis: Assessment/Problem Details: He has a sepsis likely due to the diabetic foot infection. His x-ray foot showed evidence of the osteomyelitis. Podiatry and vascular surgery has been consulted. (6) Hypertensive chronic kidney disease with stage 1 through stage 4 chronic kidney disease, or unspecified chronic kidney disease: Assessment/Problem Details: His blood pressure is high with persistent edema on furosemide (7) Type 2 diabetes mellitus with diabetic chronic kidney disease: Assessment/Problem Details: He has insulin-dependent type 2 diabetes mellitus currently using insulin Levemir at home. (8) Anemia: Assessment/Problem Details: He has a anemia likely due to the chronic infection, CKD and iron deficiency. His hemoglobin is low but stable. His serum free light chain ratio, serum immunofixation and SPEP are unremarkable. Plan * Continue furosemide to 40 mg p.o. twice a day. Patient also on losartan 50 mg daily. Blood pressure has been variable but seems to be better. He will not tolerate low blood pressure because of advanced CKD. * Continue oral sodium bicarbonate 650 mg mg p.o. 3 times daily * Continue oral iron. IV iron was avoided because of active infection. Urine immunofixation showed no M band. * Patient will be discharged to his [facility] on vancomycin and ertapenem. He will follow-up with urology as outpatient to address left renal hydronephrosis. Patient had a recurrent nephrolithiasis with hydronephrosis with creatinine up to 5 mg/dL that improved with creatinine stabilized between 2.5 to 3 mg/dL after stents and removal of kidney stones. Stone analysis showed evidence of calcium oxalate. Unfortunately, he is high risk for progression of CKD and he may require dialysis soon. He need to follow-up in renal clinic in 10 to 14 days with repeat renal panel and CBC to address blood pressure and diuretics and arrange for dialysis as indicated. Documented By: Johan Taylor MD 11/21/211709 Signed By: <Electronically signed by MD Johan Taylor> 11/21/211715 [facility] Work Phone: [phone] 241-695208-17-2022 Procedure [facility] Progress note Author Johan [facility] November 20, 2021 6:31pm Note Date/Time November 20, 2021 6: 31pm [facility] [address] [place] [address] Nephrology Progress Note Signed Patient: Simon Lott MR#: [id number] : 1950 Acct:[id number] Age/Sex: 71 / M Adm Date: 2 Loc: Room: [address] [place] [address] Type: ADM IN Attending Dr: Landon Grullon MD Copies to: ~ Date of Service: 11/20/2021 Subjective Subjective Narrative: Mr. Lott is a 71-year male with medical history of CKD, diabetes mellitus, hypertension, anemia, secondary hyperparathyroidism, alcoholic liver disease, PAD, diabetic foot ulcer, CVA, hepatitis C and nephrolithiasis. He was transferred from the [facility] due to the fever. In ER, he was found to hve hyperkalemia serum potassium 6.1 mg/L and metabolic acidosis with serum bicarbonate 17 mmol/L. Patient was also noted to have a leukocytosis and tachycardia. He had a Right foot x-ray which showed finding concerning for osteomyelitis of the fifth metatarsal bone. Patient was given IV fluid and was started on broad-spectrum antibiotics for diabetic foot infection and sepsis. Patient was given sodium bicarbonate, insulin with D50 and Lokelma in the emergency room for hyperkalemia. On review record it appears that patient has a longstanding CKD with baseline creatinine around 3.2?3.5 mg/dL. His renal function has been declining due to the progression of his CKD. He used to follow uo in our renal clininc for CKD care but missed the last appointment. Nephrology is consulted for his CKD, fluid overload, hyperkalemia and metabolic acidosis management. Interval history: He is awake and denies any complaints. Blood pressure is better improved after addition of losartan. Creatinine has increased however stable around 3.4 mg/dL. He has normal potassium 3.5 mmol/L. He still on vancomycin and meropenem was switched to ertapenem by ID for skin and soft tissue infections. He was seen by the vascular surgery for infected right foot. Vascular surgery recommended nonurgent BKA or AKA due to his severe PAD. He was also seen by thepodiatry and option of hyperbaric oxygen was discussed as patient is refusing BKA. Urology input is appreciated. Patient is going to have cystoscopy with possiblestent as outpatient. Patient would like to hold off on any invasive intervention at this point. Exam Physical Exam Vital Signs: Temp Pulse Resp BP Pulse Ox O2 Del Method 37.0 C 82 18 148/88 H 96 Room Air 11/20/21 16:00 11/20/21 16:00 11/20/21 16:11/20/21 16:00 11/20/21 16:11/20/21 16:00 Narrative: Constitutional: AA male,, looks at his stated age resting in bed in no acute distress HEENT: Moist mucous membranes, neck supple, no JVD Cardiovascular: Distant heart sound, RRR, normal S1 and S2. No murmur or rub. Respiratory: Clear to auscultation bilaterally, no wheezes, rales or rhonchi GI: Soft, nontender with no palpable organs or masses. : Sanchez catheter in place Extremities: Both feet and dressing covering chronic wounds. Bilateral lower extremities indurated with stasis dermatitis changes bilaterally in the distal legs. Neuro: AAOx3, no focal deficits. Skin: Chronic wounds on the feet bilaterally Psych: Calm, cooperative and conversant Objective Intake and Output I&O: Intake & Output 08/13/22 08/14/22 08/15/22 08/16/22 23:59 23:59 23:59 23:59 Intake Total 1110 / 1110 1600 / 1600 1100 / 1100 250 / 250 Output Total 3400 / 3400 3200 / 3200 2425 / 2425 500 / 500 Balance -2290 / -2290 -1600 / -1600 -1325 / -1325 -250 / -250 Weight 110 kg 111.1 kg 108.4 kg Meds and Allergies Meds: Active Medications Acarbose (Acarbose 50 Mg Tablet) 100 mg PO TID.WITH.MEALS [facility] Stop: 11/15/22 07:59 Last Admin: 11/20/21 17:30 Dose: 100 mg Acetaminophen (Acetaminophen 325 Mg Tablet) 650 mg PO Q4H PRN PRN Reason: Pain Stop: 11/14/22 17:41 Last Admin: 11/15/21 18:15 Dose: 650 mg Amitriptyline HCl (Amitriptyline 10 Mg Tablet) 10 mg PO HS [facility] Stop: 11/14/22 21:59 Last Admin: 11/19/21 21:45 Dose: 10 mg Ammonium Lactate (Ammonium Lactate 12% Lot 226 Gm Bottle) 1 applic TOPICAL QSHIFT [facility] Stop: 11/14/22 21:59 Last Admin: 11/20/21 18:18 Dose: 1 applic Ascorbic Acid (Ascorbic Acid 500 Mg Tablet) 500 mg PO DAILY [facility] Stop: 11/15/22 08:59 Last Admin: 11/20/21 12:33 Dose: 500 mg Atorvastatin Calcium (Atorvastatin 10 Mg Tablet) 10 mg PO HS [facility] Stop: 11/14/22 21:59 Last Admin: 11/19/21 21:45 Dose: 10 mg Clopidogrel Bisulfate (Clopidogrel Bisulfate 75 Mg Tablet) 75 mg PO DAILY [facility] Stop: 11/15/22 08:59 Last Admin: 11/20/21 12:32 Dose: 75 mg Dextrose (Dextrose 50% In Water 25 Gm/50 Ml Syringe) 0 gm IV-PUSH PRN PRN PRN Reason: Hypoglycemia Stop: 11/14/22 17:37 Duloxetine HCl (Duloxetine 60 Mg Capsule.Dr) 60 mg PO DAILY [facility] Stop: 11/16/22 08:59 Last Admin: 11/20/21 12:32 Dose: 60 mg Ertapenem (Ertapenem - Pharmacy Dosing) 1 each MISCELLANE ONCE PRN; Protocol PRN Reason: NORMA.Pharmacy Consult Ferrous Sulfate (Ferrous Sulfate 324 Mg Tablet.) 324 mg PO MoWeFr@0900 [facility] Stop: 11/16/22 08:59 Last Admin: 11/19/21 08:50 Dose: 324 mg Folic Acid (Folic Acid 1 Mg Tablet) 1 mg PO DAILY [facility] Stop: 11/15/22 08:59 Last Admin: 11/20/21 12:33 Dose: 1 mg Furosemide (Furosemide 40 Mg/4 Ml Vial) 40 mg IV-PUSH BID@0800,1600 [facility] Stop: 11/15/22 15:59 Last Admin: 11/20/21 17:30 Dose: 40 mg Gabapentin (Gabapentin 600 Mg Tablet) 600 mg PO QPM [facility] Stop: 11/15/22 20:59 Last Admin: 11/19/21 21:45 Dose: 600 mg Glucose (Dextrose 40% Gel 15 Gm Tube) 0 gm PO PRN PRN PRN Reason: Hypoglycemia Stop: 11/14/22 17:37 Heparin Sodium (Porcine) (Heparin 5,000 Unit/Ml Vial) 5,000 unit SUBCUT Q12HR [facility] Stop: 11/14/22 20:59 Last Admin: 11/20/21 12:33 Dose: 5,000 unit Hydralazine HCl (Hydralazine 20 Mg/Ml Vial) 10 mg IV-PUSH Q4H PRN PRN Reason: Hypertension Stop: 11/14/22 21:49 Last Admin: 11/15/21 15:59 Dose: 10 mg Ertapenem 0.5 gm/ Sodium (Chloride) 100 mls @ 200 mls/hr IV Q24H [facility] Stop: 11/20/22 16:59 Last Admin: 11/20/21 17:30 Dose: 200 mls/hr Vancomycin HCl 1.25 gm/ (Dextrose) 275 mls @ 183.333 mls/hr IV ONCE ONE Stop: 11/20/21 19:29 Insulin Aspart (Insulin Aspart 300 Units/3 Ml Insuln.Pen) 0 units SUBCUT TID.WM.[facility]; Protocol Stop: 11/14/22 21:59 Last Admin: 11/20/21 17:31 Dose: Not Given Insulin Detemir (Insulin Detemir 300 Units/3 Ml Insuln.Pen) 42 units SUBCUT DAILY [facility] Stop: 11/15/22 08:59 Last Admin: 11/20/21 12:36 Dose: 42 units Losartan Potassium (Losartan 50 Mg Tablet) 50 mg PO DAILY [facility] Stop: 11/18/22 08:59 Last Admin: 11/20/21 12:33 Dose: 50 mg Loteprednol Etabonate (Loteprednol 0.5% Op Susp 100 Drops/5 Ml Bottle) 1 drops EYE-LEFT QID JULIANN Stop: 11/14/22 17:59 Last Admin: 11/20/21 17:31 Dose: 1 drops Melatonin (Melatonin 5 Mg Tablet) 5 mg PO HS PRN PRN Reason: Insomnia Stop: 11/14/22 17:41 Last Admin: 11/16/21 21:23 Dose: 5 mg Metoprolol Tartrate (Metoprolol Tartrate 5 Mg/5 Ml Vial) 5 mg IV-PUSH Q4H PRN PRN Reason: Blood Pressure Stop: 11/14/22 21:49 Nifedipine (Nifedipine Er.24hr 30 Mg Tab.Er.24) 30 mg PO DAILY [facility] Stop: 11/18/22 15:39 Last Admin: 11/20/21 12:33 Dose: 30 mg Saccharomyces Boulardii (Saccharomyces Boulardii 250 Mg Capsule) 250 mg PO BID.WITH.MEALS [facility] Stop: 11/15/22 07:59 Last Admin: 11/20/21 17:31 Dose: 250 mg Sodium Bicarbonate (Sodium Bicarbonate 650 Mg Tablet) 650 mg PO TID JULIANN Stop: 11/15/22 13:59 Last Admin: 11/20/21 17:31 Dose: 650 mg Sodium Chloride (Sodium Chloride 0.9 % 10 Ml Syringe) 0 ml IV-PUSH PRN PRN PRN Reason: Flush Stop: 11/14/22 12:53 Last Admin: 11/20/21 09:30 Dose: 10 ml Sodium Chloride (Sodium Chloride 0.9 % 10 Ml Syringe) 0 ml IV-PUSH QSHIFT [facility]ULI[facility] Stop: 11/14/22 21:59 Last Admin: 11/20/21 17:31 Dose: 10 ml Sodium Hypochlorite (Sodium Hypochlorite 0.25% 473 Ml Solution) 0 ml TOPICAL BID [facility] Stop: 11/14/22 20:59 Last Admin: 11/20/21 12:37 Dose: Not Given Tamsulosin HCl (Tamsulosin 0.4 Mg Cap.Er.24h) 0.4 mg PO BID [facility] Stop: 11/14/22 20:59 Last Admin: 11/20/21 12:33 Dose: 0.4 mg Vancomycin HCl (Vancomycin - Pharmacy Dosing 1 Each Miscell) 1 each IV PRN PRN; Protocol PRN Reason: ZZ.Pharmacy Consult Allergies codeine Allergy (Verified 05/18/21 09:55) Unknown Reaction lisinopril Allergy (Verified 05/18/21 09:55) Swelling of Lip/Tongue/Throat Results Labs CBC & Chem 7: 11/20/21 05:54 11/20/21 05:54 Labs: 11/20/21 05:54 BUN 41 H Creatinine 3.43 H Radiology Impressions Impressions - last 24 hours: Any impression(s) listed above is documentation that was entered by the reading physician into a diagnostic report(s) for Simon Lott. I have reviewed the report(s) and am incorporating any findings in the treatment plan of this patient where applicable. A&P - Nephrology Assessment/Plan (1) Hydronephrosis, left: Assessment/Problem Details: He has had persistent left hydronephrosis and hydroureter. He has a history of bilateral nephrolithiasis s/p intervention in 07/[address] Giles. Serum creatinine is slightly worse than baseline 2.5 mg/dL in the setting of cellulitis however he also has obstructive uropathy. Urology was consulted and the patient is going to have cystoscopy and retrograde venogram with possible stent placement that is scheduled as outpatient since patient is not willing to do invasive intervention at this point.. (2) High anion gap metabolic acidosis: Assessment/Problem Details: Acidosis did improve with diuresis and sodium bicarbonate (3) Hyperkalemia: Assessment/Problem Details: He has hyperkalemia and due to the combination of the CKD, metabolic acidosis, potassium supplement and losartan. He is back on losartan with normal potassium off potassium supplements. (4) CKD (chronic kidney disease) stage 4, GFR 15-29 ml/min: Assessment/Problem Details: He has a CKD due to the diabetic kidney disease and hypertensive nephrosclerosis. Baseline creatinine has been there was between 2.5 to 3 mg/dL. (5) Sepsis: Assessment/Problem Details: He has a sepsis likely due to the diabetic foot infection. His x-ray foot showed evidence of the osteomyelitis. Podiatry and vascular surgery has been consulted. (6) Hypertensive chronic kidney disease with stage 1 through stage 4 chronic kidney disease, or unspecified chronic kidney disease: Assessment/Problem Details: His blood pressure is high with persistent edema on furosemide (7) Type 2 diabetes mellitus with diabetic chronic kidney disease: Assessment/Problem Details: He has insulin-dependent type 2 diabetes mellitus currently using insulin Levemir at home. (8) Anemia: Assessment/Problem Details: He has a anemia likely due to the chronic infection, CKD and iron deficiency. His hemoglobin is low but stable. His serum free light chain ratio, serum immunofixation and SPEP are unremarkable. Plan * Change furosemide to 40 mg p.o. twice a day. * Continue losartan 50 mg daily. Will monitor serum potassium closely due to the hyperkalemia. Patient used to be on oral potassium supplement but currently on hold. * Continue oral sodium bicarbonate 650 mg mg p.o. 3 times daily * Continue oral iron. IV iron was avoided because of active infection. Urine immunofixation showed no M band. * Patient still on vancomycin. Meropenem switched to ertapenem by ID. * He will follow-up with urology as outpatient to address left renal hydronephrosis. Patient had a recurrent nephrolithiasis with hydronephrosis with creatinine up to 5 mg/dL that improved with creatinine stabilized between 2.5 to 3 mg/dL after stents and removal of kidney stones. Stone analysis showed evidence of calcium oxalate. * Continue insulin and adjust the dose as needed keep the blood sugar between 100 to 150 mg/dL. * Check renal function daily and monitor input output during hospital stay to adjust diuretics and medications as indicated. Documented By: Johan Taylor MD 11/20/211820 Signed By: <Electronically signed by MD Johan Taylor> 11/20/21 1831 [facility] Work Phone: 1([phone] 714-557608-16-2022 Progress note Author Landno Grullon [facility] November 20, 2021 4:01pm Note Date/Time November 20, 2021 1: 41pm [facility] [address] [place] [address] Hospitalist Progress Note Signed Patient: Simon Lott MR#: [id number] : 1950 Acct:[id number] Age/Sex: 71 / M Adm Date: 2 Loc: Room: [address] [place] [address] Type: ADM IN Attending Dr: Landon Grullon MD Copies to: ~ Date of Service: 11/20/2021 Subjective Subjective Narrative: Patient seen and assessed at bedside today. He notes no significant pain or discomfort. He is eagerly awaiting PICC line placement, as he would like [facility]. No acute events were noted overnight. I did discuss with him regarding CT abdominal findings of narrowing of the ureter on the right side. I did report that given his COVID-19 positivity, he is at increased risk for perioperative complication. At this time, he is not interested in further inpatient treatment of this condition. Henotes no abdominal pain, dysuria, hematuria and Sanchez catheter is in place draining clear, yellow urine. Exam Physical Exam Vital Signs: Temp Pulse Resp BP Pulse Ox O2 Del Method 97.6 F 92 H 20 149/83 H 95 Room Air 11/20/21 11:47 11/20/21 11:47 11/20/21 11:47 11/20/21 11:47 11/20/21 11:47 11/20/21 11:47 Narrative: Constitutional: Elderly AA male, resting in bed in no acute distress HEENT: Moist mucous membranes, neck supple, no JVD Cardiovascular: RRR, no M/R/G, normal S1 and S2 Respiratory: Clear to auscultation bilaterally, no wheezes, rales or rhonchi GI: Soft, NTND, NABS, no rebound tenderness or guarding : Sanchez catheter in place Extremities: Bilateral lower extremities indurated with stasis dermatitis changes bilaterally in the distal legs. Feet are wrapped bilaterally in dressings covering patient's chronic wounds. Not visualized on today's examination Neuro: AAOx3, no focal deficits. Strength 5/5 throughout Skin: Chronic wounds on the feet bilaterally Psych: Calm, cooperative and conversant Objective Lab Results CBC & Chem 7: 11/20/21 05:54 11/20/21 05:54 Microbiology Results Microbiology 11/14/21 13:23 Blood - Right Hand Blood Culture - Final NO GROWTH 5 DAYS 11/14/21 13:00 Blood - Right Antecubital Blood Culture - Final NO GROWTH 5 DAYS Meds Allergies and Active Meds Allergies codeine Allergy (Verified 05/18/21 09:55) Unknown Reaction lisinopril Allergy (Verified 05/18/21 09:55) Swelling of Lip/Tongue/Throat Active Meds: Active Medications Generic Name Dose Route Start Last Admin Trade Name Freq PRN Reason Stop Dose Admin Acarbose 100 mg 11/15/21 08:00 11/20/21 12:32 Acarbose 50 Mg Tablet PO 11/15/22 07:59 100 mg TID.WITH.MEALS JULIANN Administration Acetaminophen 650 mg 11/14/21 17:42 11/15/21 18:15 Acetaminophen 325 Mg Tablet PO 11/14/22 17:41 650 mg Q4H PRN Administration Pain Amitriptyline HCl 10 mg 11/14/21 22:00 11/19/21 21:45 Amitriptyline 10 Mg Tablet PO 11/14/22 21:59 10 mg HS JULIANN Administration Ammonium Lactate 1 applic 11/14/21 22:00 11/20/21 05:47 Ammonium Lactate 12% Lot 226 Gm Bottle TOPICAL 11/14/22 21:59 1 applic QSHIFT JULIANN Administration Ascorbic Acid 500 mg 11/15/21 09:00 11/20/21 12:33 Ascorbic Acid 500 Mg Tablet PO 11/15/22 08:59 500 mg DAILY JULIANN Administration Atorvastatin Calcium 10 mg 11/14/21 22:00 11/19/21 21:45 Atorvastatin 10 Mg Tablet PO 11/14/22 21:59 10 mg HS JULIANN Administration Clopidogrel Bisulfate 75 mg 11/15/21 09:00 11/20/21 12:32 Clopidogrel Bisulfate 75 Mg Tablet PO 11/15/22 08:59 75 mg DAILY JULIANN Administration Dextrose 0 gm 11/14/21 17:38 Dextrose 50% In Water 25 Gm/50 Ml Syringe IV-PUSH 11/14/22 17:37 PRN PRN Hypoglycemia Duloxetine HCl 60 mg 11/16/21 09:00 11/20/21 12:32 Duloxetine 60 [address]aps[address].Dr IYER 11/16/22 08:59 60 mg DAILY JULIANN Administration Ertapenem 1 each 11/20/21 07:35 Ertapenem - Pharmacy Dosing MISCELLANE ONCE PRN ZZ.Pharmacy Consult Protocol Ferrous Sulfate 324 mg 11/16/21 09:00 11/19/21 08:50 Ferrous Sulfate 324 [address] Tablet.Dr IYER 11/16/22 08:59 324 mg MoWeFr@0900 JULIANN Administration Folic Acid 1 mg 11/15/21 09:00 11/20/21 12:33 Folic Acid 1 Mg Tablet PO 11/15/22 08:59 1 mg DAILY JULIANN Administration Furosemide 40 mg 11/15/21 16:00 11/20/21 09:30 Furosemide 40 Mg/4 Ml Vial IV-PUSH 11/15/22 15:59 40 mg BID@0800,1600 JULIANN Administration Gabapentin 600 mg 11/15/21 21:00 11/19/21 21:45 Gabapentin 600 Mg Tablet PO 11/15/22 20:59 600 mg QPM JULIANN Administration Glucose 0 gm 11/14/21 17:38 Dextrose 40% Gel 15 Gm Tube PO 11/14/22 17:37 PRN PRN Hypoglycemia Heparin Sodium (Porcine) 5,000 unit 11/14/21 21:00 11/20/21 12:33 Heparin 5,000 Unit/Ml Vial SUBCUT 11/14/22 20:59 5,000 unit Q12HR JULIANN Administration Hydralazine HCl 10 mg 11/14/21 21:50 11/15/21 15:59 Hydralazine 20 Mg/Ml Vial IV-PUSH 11/14/22 21:49 10 mg Q4H PRN Administration Hypertension Ertapenem 0.5 gm/ Sodium 100 mls @ 200 mls/hr 11/20/21 17:00 Chloride IV 11/20/22 16:59 Q24H JULIANN Vancomycin HCl 1.25 gm/ 275 mls @ 183.333 mls/hr 11/20/21 18:00 Dextrose IV 11/20/21 19:29 ONCE ONE Insulin Aspart 0 units 11/14/21 22:00 11/20/21 12:39 Insulin Aspart 300 Units/3 Ml Insuln.Pen SUBCUT 11/14/22 21:59 Not Given TID.WM.HS [facility] Protocol Insulin Detemir 42 units 11/15/21 09:00 11/20/21 12:36 Insulin Detemir 300 Units/3 Ml Insuln.Pen SUBCUT 11/15/22 08:59 42 units DAILY JULIANN Administration Losartan Potassium 50 mg 11/18/21 09:00 11/20/21 12:33 Losartan 50 Mg Tablet PO 11/18/22 08:59 50 mg DAILY JULIANN Administration Loteprednol Etabonate 1 drops 11/14/21 18:00 11/20/21 12:36 Loteprednol 0.5% Op Susp 100 Drops/5 Ml Bottle EYE-LEFT 11/14/22 17:59 1 drops QID JULIANN Administration Melatonin 5 mg 11/14/21 17:42 11/16/21 21:23 Melatonin 5 Mg Tablet PO 11/14/22 17:41 5 mg HS PRN Administration Insomnia Metoprolol Tartrate 5 mg 11/14/21 21:50 Metoprolol Tartrate 5 Mg/5 Ml Vial IV-PUSH 11/14/22 21:49 Q4H PRN Blood Pressure Nifedipine 30 mg 11/18/21 15:40 11/20/21 12:33 Nifedipine Er.24hr 30 Mg Tab.Er.24 PO 11/18/22 15:39 30 mg DAILY JULIANN Administration Saccharomyces Boulardii 250 mg 11/15/21 08:00 11/20/21 08:00 Saccharomyces Boulardii 250 Mg Capsule PO 11/15/22 07:59 Not Given BID.WITH.MEALS JULIANN Sodium Bicarbonate 650 mg 11/15/21 14:00 11/20/21 12:33 Sodium Bicarbonate 650 Mg Tablet PO 11/15/22 13:59 650 mg TID JULIANN Administration Sodium Chloride 0 ml 11/14/21 12:54 11/20/21 09:30 Sodium Chloride 0.9 % 10 Ml Syringe IV-PUSH 11/14/22 12:53 10 ml PRN PRN Administration Flush Sodium Chloride 0 ml 11/14/21 22:00 11/20/21 05:47 Sodium Chloride 0.9 % 10 Ml Syringe IV-PUSH 11/14/22 21:59 10 ml QSHIFT JULIANN Administration Sodium Hypochlorite 0 ml 11/14/21 21:00 11/20/21 12:37 Sodium Hypochlorite 0.25% 473 Ml Solution TOPICAL 11/14/22 20:59 Not Given BID JULIANN Tamsulosin HCl 0.4 mg 11/14/21 21:00 11/20/21 12:33 Tamsulosin 0.4 Mg Cap.Er.24h PO 11/14/22 20:59 0.4 mg BID JULIANN Administration Vancomycin HCl 1 each 11/14/21 17:38 Vancomycin - Pharmacy Dosing 1 Each Miscell IV PRN PRN ZZ.Pharmacy Consult Protocol A&P - Hospitalist Assessment/Plan (1) Sepsis: (2) Diabetic foot ulcer: (3) TOM (acute kidney injury): (4) CKD (chronic kidney disease) stage 3, GFR 30-59 ml/min: (5) Type 2 diabetes mellitus with diabetic chronic kidney disease: (6) Osteomyelitis of foot: (7) Acute hyperkalemia: (8) PVD (peripheral vascular disease): (9) Hydroureteronephrosis: (10) COVID-19: (11) Anemia in chronic kidney disease (CKD): Plan -Discussed case with both urology, patient and nursing staff. Patient would want to hold off on invasive intervention for now, given the mild increased riskwith his COVID-19 positivity. He is agreeable to follow-up as an outpatient forlikely cystoscopy -No need for therapeutics for COVID-19 infection, patient is asymptomatic ?WBC does continue to improve, did discuss with Dr. Pitt we will plan on 2-weekcourse of antibiotic therapy via PICC line -Antibiotic dosing per ID; appreciate infectious diseases recommendations -Monitor CBC closely; suspect anemia of chronic kidney disease, transfuse to maintain hemoglobin greater than 7 -Monitor renal function daily -Podiatry and vascular surgery on board, no surgical intervention warranted by patient at this time -Possible consideration of hyperbaric oxygen therapy -Continue current management DVT prophylaxis: SubQ heparin CODE STATUS: Full code Documented By: Landon Grullon MD 2 [id number] Signed By: <Electronically signed by Landon Grullon MD> 11/20/21 1609 [facility] Work Phone: 1(493) 669-718008-16-2022 Progress note Author Riya Pitt [facility] November 20, 2021 7:34am Note Date/Time November 20, 2021 7: 34am [facility] [address] [place] [address] Infect. Disease Progress Note Signed Patient: Simon Lott MR#: [id number] : 1950 Acct:[id number] Age/Sex: 71 / M Adm Date: 2 Loc: Room: [address] [place] [address] Type: ADM IN Attending Dr: Landon Grullon MD Copies to: ~ Date of Service: 11/20/2021 Subjective Interval history: Patient states he did not sleep well last night but has no new physical complaints. Exam Physical Exam Vital Signs: Temp Pulse Resp BP Pulse Ox O2 Del Method 98.5 F 101 H 16 154/79 H 93 L Room Air 11/20/21 04:00 11/20/21 04:00 11/20/21 04:00 11/20/21 04:00 11/20/21 04:00 11/20/21 04:00 Const General: cooperative and no acute distress Orientation: oriented x3 HEENT Head: normal to inspection Eyes General: appearance normal, both eyes and all related structures Neck Neck: normal visual inspection Chest Chest palpation & inspection: normal inspection of the chest Resp Effort & Inspection: normal respiratory effort Cardio Palpation: normal PMI Rate: regular rate Rhythm: regular rhythm GI Inspection: normal to inspection Palpation: soft Auscultation: normal bowel sounds Skin General: other (chronic RLE skin changes; warm to touch) Neuro General: patient oriented x3 Extrem General: edema Objective Labs CBC/BMP: CBC, BMP 11/19/21 11/20/21 11/20/21 05:39 05:54 05:54 Corrected WBC 14.8 H 14.6 H Uncorrected WBC Count 14.8 H 14.6 H RBC 3.02 L 2.85 L Hgb 8.2 L 7.7 L Hct 25.8 L 24.4 L Plt Count 227 240 Sodium 136 Potassium 3.5 Chloride 106 Carbon Dioxide 22.7 BUN 41 H Creatinine 3.43 H Calcium 7.6 L Labs: 11/20/21 05:54 BUN 41 H Creatinine 3.43 H Microbiology Microbiology: Microbiology - Results from entire visit 11/14/21 13:23 Blood - Right Hand Blood Culture - Final NO GROWTH 5 DAYS 11/14/21 13:00 Blood - Right Antecubital Blood Culture - Final NO GROWTH 5 DAYS 11/14/21 14:36 Clean Void Midstream Urine Culture - Final No Growth 2 Days 11/14/21 13:30 Nasal SARS Antigen (LFIA) - Final Allergies and Medications Allergies and Active Meds Allergies codeine Allergy (Verified 05/18/21 09:55) Unknown Reaction lisinopril Allergy (Verified 05/18/21 09:55) Swelling of Lip/Tongue/Throat Active Medications Acarbose (Acarbose 50 Mg Tablet) 100 mg PO TID.WITH.MEALS JULIANN Stop: 11/15/22 07:59 Last Admin: 11/19/21 18:18 Dose: 100 mg Acetaminophen (Acetaminophen 325 Mg Tablet) 650 mg PO Q4H PRN PRN Reason: Pain Stop: 11/14/22 17:41 Last Admin: 11/15/21 18:15 Dose: 650 mg Amitriptyline HCl (Amitriptyline 10 Mg Tablet) 10 mg PO HS JULIANN Stop: 11/14/22 21:59 Last Admin: 11/19/21 21:45 Dose: 10 mg Ammonium Lactate (Ammonium Lactate 12% Lot 226 Gm Bottle) 1 applic TOPICAL QSHIFT JULIANN Stop: 11/14/22 21:59 Last Admin: 11/20/21 05:47 Dose: 1 applic Ascorbic Acid (Ascorbic Acid 500 Mg Tablet) 500 mg PO DAILY JULIANN Stop: 11/15/22 08:59 Last Admin: 11/19/21 08:49 Dose: 500 mg Atorvastatin Calcium (Atorvastatin 10 Mg Tablet) 10 mg PO HS JULIANN Stop: 11/14/22 21:59 Last Admin: 11/19/21 21:45 Dose: 10 mg Clopidogrel Bisulfate (Clopidogrel Bisulfate 75 Mg Tablet) 75 mg PO DAILY JULIANN Stop: 11/15/22 08:59 Last Admin: 11/19/21 08:49 Dose: 75 mg Dextrose (Dextrose 50% In Water 25 Gm/50 Ml Syringe) 0 gm IV-PUSH PRN PRN PRN Reason: Hypoglycemia Stop: 11/14/22 17:37 Duloxetine HCl (Duloxetine 60 Mg Capsule.) 60 mg PO DAILY JULIANN Stop: 11/16/22 08:59 Last Admin: 11/19/21 08:49 Dose: 60 mg Ferrous Sulfate (Ferrous Sulfate 324 Mg Tablet.) 324 mg PO MoWeFr@0900 JULIANN Stop: 11/16/22 08:59 Last Admin: 11/19/21 08:50 Dose: 324 mg Folic Acid (Folic Acid 1 Mg Tablet) 1 mg PO DAILY JULIANN Stop: 11/15/22 08:59 Last Admin: 11/19/21 08:50 Dose: 1 mg Furosemide (Furosemide 40 Mg/4 Ml Vial) 40 mg IV-PUSH BID@0800,1600 JULIANN Stop: 11/15/22 15:59 Last Admin: 11/19/21 16:43 Dose: 40 mg Gabapentin (Gabapentin 600 Mg Tablet) 600 mg PO QPM JULIANN Stop: 11/15/22 20:59 Last Admin: 11/19/21 21:45 Dose: 600 mg Glucose (Dextrose 40% Gel 15 Gm Tube) 0 gm PO PRN PRN PRN Reason: Hypoglycemia Stop: 11/14/22 17:37 Heparin Sodium (Porcine) (Heparin 5,000 Unit/Ml Vial) 5,000 unit SUBCUT Q12HR JULIANN Stop: 11/14/22 20:59 Last Admin: 11/19/21 21:46 Dose: 5,000 unit Hydralazine HCl (Hydralazine 20 Mg/Ml Vial) 10 mg IV-PUSH Q4H PRN PRN Reason: Hypertension Stop: 11/14/22 21:49 Last Admin: 11/15/21 15:59 Dose: 10 mg Meropenem (Merrem) 1 gm in 100 mls @ 200 mls/hr IV Q12H [facility] Last Admin: 11/20/21 05:47 Dose: 200 mls/hr Insulin Aspart (Insulin Aspart 300 Units/3 Ml Insuln.Pen) 0 units SUBCUT TID.WM.HS [facility]; Protocol Stop: 11/14/22 21:59 Last Admin: 11/19/21 21:46 Dose: Not Given Insulin Detemir (Insulin Detemir 300 Units/3 Ml Insuln.Pen) 42 units SUBCUT DAILY [facility] Stop: 11/15/22 08:59 Last Admin: 11/19/21 08:50 Dose: 42 units Losartan Potassium (Losartan 50 Mg Tablet) 50 mg PO DAILY [facility] Stop: 11/18/22 08:59 Last Admin: 11/19/21 08:49 Dose: 50 mg Loteprednol Etabonate (Loteprednol 0.5% Op Susp 100 Drops/5 Ml Bottle) 1 drops EYE-LEFT QID [facility] Stop: 11/14/22 17:59 Last Admin: 11/19/21 21:45 Dose: 1 drops Melatonin (Melatonin 5 Mg Tablet) 5 mg PO HS PRN PRN Reason: Insomnia Stop: 11/14/22 17:41 Last Admin: 11/16/21 21:23 Dose: 5 mg Metoprolol Tartrate (Metoprolol Tartrate 5 Mg/5 Ml Vial) 5 mg IV-PUSH Q4H PRN PRN Reason: Blood Pressure Stop: 11/14/22 21:49 Nifedipine (Nifedipine Er.24hr 30 Mg Tab.Er.24) 30 mg PO DAILY JULIANN Stop: 11/18/22 15:39 Last Admin: 11/19/21 08:49 Dose: 30 mg Saccharomyces Boulardii (Saccharomyces Boulardii 250 Mg Capsule) 250 mg PO BID.WITH.MEALS JULIANN Stop: 11/15/22 07:59 Last Admin: 11/19/21 18:18 Dose: 250 mg Sodium Bicarbonate (Sodium Bicarbonate 650 Mg Tablet) 650 mg PO TID JULIANN Stop: 11/15/22 13:59 Last Admin: 11/19/21 21:45 Dose: 650 mg Sodium Chloride (Sodium Chloride 0.9 % 10 Ml Syringe) 0 ml IV-PUSH PRN PRN PRN Reason: Flush Stop: 11/14/22 12:53 Last Admin: 11/18/21 09:06 Dose: 10 ml Sodium Chloride (Sodium Chloride 0.9 % 10 Ml Syringe) 0 ml IV-PUSH QSHIFT JULIANN Stop: 11/14/22 21:59 Last Admin: 11/20/21 05:47 Dose: 10 ml Sodium Hypochlorite (Sodium Hypochlorite 0.25% 473 Ml Solution) 0 ml TOPICAL BID JULIANN Stop: 11/14/22 20:59 Last Admin: 11/19/21 21:46 Dose: Not Given Tamsulosin HCl (Tamsulosin 0.4 Mg Cap.Er.24h) 0.4 mg PO BID JULIANN Stop: 11/14/22 20:59 Last Admin: 11/19/21 21:45 Dose: 0.4 mg Vancomycin HCl (Vancomycin - Pharmacy Dosing 1 Each Miscell) 1 each IV PRN PRN; Protocol PRN Reason: ZZ.Pharmacy Consult A&P - Infectious Disease Assessment/Plan (1) Diabetic foot ulcer: Code(s): E11.621 - Type 2 diabetes mellitus with foot ulcer; L97.509 - Non-pressure chronic ulcer of other part of unspecified foot with unspecified severity Status: Chronic (2) TOM (acute kidney injury): Code(s): N17.9 - Acute kidney failure, unspecified Status: Acute (3) Leukocytosis: Code(s): D72.829 - Elevated white blood cell count, unspecified Status: Acute (4) Cellulitis and abscess of right leg: Code(s): L03.115 - Cellulitis of right lower limb; L02.415 - Cutaneous abscess of right lower limb Status: Acute (5) PAD (peripheral artery disease): Code(s): I73.9 - Peripheral vascular disease, unspecified Status: Acute (6) Lab test positive for detection of COVID-19 virus: Code(s): U07.1 - COVID-19 Status: Acute Plan Patient had evidence of cellulitis of the right lower extremity that is documented which seems to be improving as on exam today it is warm but not significantly erythematous. He does have a chronic nonhealing right foot wound which is likely due to his underlying diabetes and poor vascular supply. He is not a candidate for vascular revascularization and patient is not willing to accept amputation. He has been on vancomycin and meropenem for skin and soft tissue infection. Podiatry is also evaluated the patient and feels no surgical indication is needed at this time. He is being treated for cellulitis/wound infection. He does have a acute on chronic kidney injury and CT scan done earlier this hospital stay shows left hydronephrosis and hydroureter that appeared to be new. He is having good urine output now with Sanchez catheter in place. CT scan continues to show same hydroureter and hydronephrosis. Urology input appreciated. They would like to do cystoscopy with possible stent placement. We will change meropenem to ertapenem. Maintain vancomycin for skin and soft tissue right lower extremity cellulitis.. Of note patient's COVID test did come back positive but he has no respiratory symptoms. Documented By: Riya Pitt MD 11/20/21 0732 Signed By: <Electronically signed by MD Riya Pitt> 11/20/21 0734 [facility] Work Phone: [phone] 333-767308-16-2022 Progress note Author Johan Taylor [facility] November 19, 2021 11:24pm Note Date/Time November 19, 2021 11 :05pm [facility] [address] [place] [address] Nephrology Progress Note Signed Patient: Simon Lott MR#: [id number] : 1950 Acct:[id number] Age/Sex: 71 / M Adm Date: 2 Loc: Room: 7B7594-4 Type: ADM IN Attending Dr: Landon Grullon MD Copies to: ~ Date of Service: 11/19/2021 Subjective Subjective Narrative: Mr. Lott is a 71-year male with medical history of CKD, diabetes mellitus, hypertension, anemia, secondary hyperparathyroidism, alcoholic liver disease, PAD, diabetic foot ulcer, CVA, hepatitis C and nephrolithiasis. [facility] was [facility] the [facility] due to the fever. In ER, he was found to hve hyperkalemia serum potassium 6.1 mg/L and metabolic acidosis with serum bicarbonate 17 mmol/L. Patient was also noted to have a leukocytosis and tachycardia. He had a Right foot x-ray which showed finding concerning for osteomyelitis of the fifth metatarsal bone. Patient was given IV fluid and was started on broad-spectrum antibiotics for diabetic foot infection and sepsis. Patient was given sodium bicarbonate, insulin with D50 and Lokelma in the emergency room for hyperkalemia. On review record it appears that patient has a longstanding CKD with baseline creatinine around 3.2?3.5 mg/dL. His renal function has been declining due to the progression of his CKD. He used to follow uo in our [facility] for CKD care but missed the last appointment. Nephrology is consulted for his CKD, fluid overload, hyperkalemia and metabolic acidosis management. Interval history: Patient was seen and examined in his room. He is awake and denies any complaints. Fluid overload and serum potassium went back to normal with diuresis and correction of acidosis. He is currently on oral sodium bicarbonate and Lasix. Losartan 50 mg daily was added at the blood pressure still elevated despite diuresis. Creatinine is about the same 3 to 3.5 mg/dL. Potassium 3.4 mmol/L despite losartan. He was seen by the vascular surgery for infected right foot. Vascular surgery recommended nonurgent BKA or AKA due to his severe PAD. He was also seen by thepodiatry and option of hyperbaric oxygen was discussed as patient is refusing BKA. He is currently on empiric meropenem. CT scan of the abdomen that was done on admission showed evidence of left hydronephrosis and hydroureter on 11/15. Patient had a repeat CT scan of the abdomen today that showed persistent left hydronephrosis and hydroureter. Urology was consulted. He is feeling better today denies any chest pain palpitation cough nausea vomit diarrhea and shortness of breath. Exam Physical Exam Vital Signs: Temp Pulse Resp BP Pulse Ox O2 Del Method 37.0 C 103 H 16 153/82 H 95 Room Air 11/19/21 20:00 11/19/21 20:00 11/19/21 20:00 11/19/21 20:00 11/19/21 20:00 11/19/21 20:00 Narrative: Constitutional: AA male,, looks at his stated age resting in bed in no acute distress HEENT: Moist mucous membranes, neck supple, no JVD Cardiovascular: Distant heart sound, RRR, normal S1 and S2. No murmur or rub. Respiratory: Clear to auscultation bilaterally, no wheezes, rales or rhonchi GI: Soft, nontender with no palpable organs or masses. : Sanchez catheter in place Extremities: Both feet and dressing covering chronic wounds. Bilateral lower extremities indurated with stasis dermatitis changes bilaterally in the distal legs. Neuro: AAOx3, no focal deficits. Strength 5/5 throughout Skin: Chronic wounds on the feet bilaterally Psych: Calm, cooperative and conversant Objective Intake and Output I&O: Intake & Output 11/16/21 11/17/21 11/18/21 11/19/21 23:59 23:59 23:59 23:59 Intake Total 1680 / 1680 1110 / 1110 1600 / 1600 1000 / 1000 Output Total 3725 / 3725 3400 / 3400 3200 / 3200 2425 / 2425 Balance -2045 / -2045 -2290 / -2290 -1600 / -1600 -1425 / -1425 Weight 114.8 kg 110 kg 111.1 kg Meds and Allergies Meds: Active Medications Acarbose (Acarbose 50 Mg Tablet) 100 mg PO TID.WITH.MEALS JULIANN Stop: 11/15/22 07:59 Last Admin: 11/19/21 18:18 Dose: 100 mg Acetaminophen (Acetaminophen 325 Mg Tablet) 650 mg PO Q4H PRN PRN Reason: Pain Stop: 11/14/22 17:41 Last Admin: 11/15/21 18:15 Dose: 650 mg Amitriptyline HCl (Amitriptyline 10 Mg Tablet) 10 mg PO HS JULIANN Stop: 11/14/22 21:59 Last Admin: 11/19/21 21:45 Dose: 10 mg Ammonium Lactate (Ammonium Lactate 12% Lot 226 Gm Bottle) 1 applic TOPICAL QSHIFT JULIANN Stop: 11/14/22 21:59 Last Admin: 11/19/21 21:46 Dose: 1 applic Ascorbic Acid (Ascorbic Acid 500 Mg Tablet) 500 mg PO DAILY JULIANN Stop: 11/15/22 08:59 Last Admin: 11/19/21 08:49 Dose: 500 mg Atorvastatin Calcium (Atorvastatin 10 Mg Tablet) 10 mg PO HS JULIANN Stop: 11/14/22 21:59 Last Admin: 11/19/21 21:45 Dose: 10 mg Clopidogrel Bisulfate (Clopidogrel Bisulfate 75 Mg Tablet) 75 mg PO DAILY JULIANN Stop: 11/15/22 08:59 Last Admin: 11/19/21 08:49 Dose: 75 mg Dextrose (Dextrose 50% In Water 25 Gm/50 Ml Syringe) 0 gm IV-PUSH PRN PRN PRN Reason: Hypoglycemia Stop: 11/14/22 17:37 Duloxetine HCl (Duloxetine 60 Mg Capsule.) 60 mg PO DAILY JULIANN Stop: 11/16/22 08:59 Last Admin: 11/19/21 08:49 Dose: 60 mg Ferrous Sulfate (Ferrous Sulfate 324 Mg Tablet.) 324 mg PO MoWeFr@0900 JULIANN Stop: 11/16/22 08:59 Last Admin: 11/19/21 08:50 Dose: 324 mg Folic Acid (Folic Acid 1 Mg Tablet) 1 mg PO DAILY JULIANN Stop: 11/15/22 08:59 Last Admin: 11/19/21 08:50 Dose: 1 mg Furosemide (Furosemide 40 Mg/4 Ml Vial) 40 mg IV-PUSH BID@0800,1600 JULIANN Stop: 11/15/22 15:59 Last Admin: 11/19/21 16:43 Dose: 40 mg Gabapentin (Gabapentin 600 Mg Tablet) 600 mg PO QPM JULIANN Stop: 11/15/22 20:59 Last Admin: 11/19/21 21:45 Dose: 600 mg Glucose (Dextrose 40% Gel 15 Gm Tube) 0 gm PO PRN PRN PRN Reason: Hypoglycemia Stop: 11/14/22 17:37 Heparin Sodium (Porcine) (Heparin 5,000 Unit/Ml Vial) 5,000 unit SUBCUT Q12HR JULIANN Stop: 11/14/22 20:59 Last Admin: 11/19/21 21:46 Dose: 5,000 unit Hydralazine HCl (Hydralazine 20 Mg/Ml Vial) 10 mg IV-PUSH Q4H PRN PRN Reason: Hypertension Stop: 11/14/22 21:49 Last Admin: 11/15/21 15:59 Dose: 10 mg Meropenem (Merrem) 1 gm in 100 mls @ 200 mls/hr IV Q12H [facility] Last Admin: 11/19/21 18:18 Dose: 200 mls/hr Insulin Aspart (Insulin Aspart 300 Units/3 Ml Insuln.Pen) 0 units SUBCUT TID.WM.HS [facility]; Protocol Stop: 11/14/22 21:59 Last Admin: 11/19/21 21:46 Dose: Not Given Insulin Detemir (Insulin Detemir 300 Units/3 Ml Insuln.Pen) 42 units SUBCUT DAILY [facility] Stop: 11/15/22 08:59 Last Admin: 11/19/21 08:50 Dose: 42 units Losartan Potassium (Losartan 50 Mg Tablet) 50 mg PO DAILY [facility] Stop: 11/18/22 08:59 Last Admin: 11/19/21 08:49 Dose: 50 mg Loteprednol Etabonate (Loteprednol 0.5% Op Susp 100 Drops/5 Ml Bottle) 1 drops EYE-LEFT QID [facility] Stop: 11/14/22 17:59 Last Admin: 11/19/21 21:45 Dose: 1 drops Melatonin (Melatonin 5 Mg Tablet) 5 mg PO HS PRN PRN Reason: Insomnia Stop: 11/14/22 17:41 Last Admin: 11/16/21 21:23 Dose: 5 mg Metoprolol Tartrate (Metoprolol Tartrate 5 Mg/5 Ml Vial) 5 mg IV-PUSH Q4H PRN PRN Reason: Blood Pressure Stop: 11/14/22 21:49 Nifedipine (Nifedipine Er.24hr 30 Mg Tab.Er.24) 30 mg PO DAILY [facility] Stop: 11/18/22 15:39 Last Admin: 11/19/21 08:49 Dose: 30 mg Saccharomyces Boulardii (Saccharomyces Boulardii 250 Mg Capsule) 250 mg PO BID.WITH.MEALS [facility] Stop: 11/15/22 07:59 Last Admin: 11/19/21 18:18 Dose: 250 mg Sodium Bicarbonate (Sodium Bicarbonate 650 Mg Tablet) 650 mg PO TID JULIANN Stop: 11/15/22 13:59 Last Admin: 11/19/21 21:45 Dose: 650 mg Sodium Chloride (Sodium Chloride 0.9 % 10 Ml Syringe) 0 ml IV-PUSH PRN PRN PRN Reason: Flush Stop: 11/14/22 12:53 Last Admin: 11/18/21 09:06 Dose: 10 ml Sodium Chloride (Sodium Chloride 0.9 % 10 Ml Syringe) 0 ml IV-PUSH QSHIFT JULIANN Stop: 11/14/22 21:59 Last Admin: 11/19/21 21:47 Dose: 10 ml Sodium Hypochlorite (Sodium Hypochlorite 0.25% 473 Ml Solution) 0 ml TOPICAL BID JULIANN Stop: 11/14/22 20:59 Last Admin: 11/19/21 21:46 Dose: Not Given Tamsulosin HCl (Tamsulosin 0.4 Mg Cap.Er.24h) 0.4 mg PO BID JULIANN Stop: 11/14/22 20:59 Last Admin: 11/19/21 21:45 Dose: 0.4 mg Vancomycin HCl (Vancomycin - Pharmacy Dosing 1 Each Miscell) 1 each IV PRN PRN; Protocol PRN Reason: ZZ.Pharmacy Consult Allergies codeine Allergy (Verified 05/18/21 09:55) Unknown Reaction lisinopril Allergy (Verified 05/18/21 09:55) Swelling of Lip/Tongue/Throat Results Labs CBC & Chem 7: 11/19/21 05:39 11/19/21 05:39 Labs: 11/19/21 05:39 BUN 40 H Creatinine 3.38 H Radiology Impressions Impressions - last 24 hours: Impressions Abdomen/Pelvis CT 11/19/21 08:57 IMPRESSION: Similar LEFT hydronephrosis and proximal hydroureter. No ureteral stone. LEFT nephrolithiasis. Similar inguinal lymphadenopathy. Impression dictated by: Fawad Nicholson M.D.11/19/2021 3:27 PM Dictation Location: [place] [address] Any impression(s) listed above is documentation that was entered by the reading physician into a diagnostic report(s) for Simon Lott. I have reviewed the report(s) and am incorporating any findings in the treatment plan of this patient where applicable. A&P - Nephrology Assessment/Plan (1) Hydronephrosis, left: Assessment/Problem Details: He has had persistent left hydronephrosis and hydroureter. He has a history of bilateral nephrolithiasis s/p intervention in 07/[address] Giles. Serum creatinine is slightly worse than baseline 2.5 mg/dL in the setting of osteoarthritis however he also has obstructive uropathy. Urology was consulted and the patient is going to have cystoscopy and retrograde venogram with possible stent placement. (2) High anion gap metabolic acidosis: Assessment/Problem Details: He had metabolic acidosis likely due to the CKD. He has no evidence of lactic acidosis of ketoacidosis. His acidosis corrected with diuresis and sodium bicarbonate (3) Hyperkalemia: Assessment/Problem Details: He has hyperkalemia and due to the combination of the CKD, metabolic acidosis, potassium supplement and losartan. His potassium is back to normal with the Lasix and correction of acidosis. Patient has been tolerating losartan well. (4) CKD (chronic kidney disease) stage 4, GFR 15-29 ml/min: Assessment/Problem Details: He has a CKD due to the diabetic kidney disease and hypertensive nephrosclerosis. Baseline creatinine has been there was between 2.5 to 3 mg/dL. (5) Sepsis: Assessment/Problem Details: He has a sepsis likely due to the diabetic foot infection. His x-ray foot showed evidence of the osteomyelitis. Podiatry and vascular surgery has been consulted. (6) Hypertensive chronic kidney disease with stage 1 through stage 4 chronic kidney disease, or unspecified chronic kidney disease: Assessment/Problem Details: His blood pressure is high with persistent edema on furosemide (7) Type 2 diabetes mellitus with diabetic chronic kidney disease: Assessment/Problem Details: He has insulin-dependent type 2 diabetes mellitus currently using insulin Levemir at home. (8) Anemia: Assessment/Problem Details: He has a anemia likely due to the chronic infection, CKD and iron deficiency. His hemoglobin is low but stable. His serum free light chain ratio, serum immunofixation and SPEP are unremarkable. Plan * Continue Lasix 40 mg IV twice daily that will be switched to oral furosemide 40 mg twice a day tomorrow. * Continue 50 mg daily. Will monitor serum potassium closely due to the hyperkalemia. Patient used to be on oral potassium supplement but currently on hold. * Continue oral sodium bicarbonate 650 mg mg p.o. 3 times daily * Continue oral iron. Due to the active infection we will avoid IV iron. Will follow UPEP and urine immunofixation that is less likely to be positive since he has normal kappa/lambda ratio. * Continue meropenem, pharmacy dose according to renal status. * Urology was consulted, patient is going to have cystoscopy and retrograde pyelogram with possible stent placement for maximal decompression of left hy dronephrosis to see if renal function will improve. * Continue insulin and adjust the dose as needed keep the blood sugar between 100 to 150 mg/dL. * Check renal function daily and monitor input output. Documented By: Johan Taylor MD 11/19/212301 Signed By: <Electronically signed by MD Johan Taylor> 11/19/21 3022 [facility] Work Phone: [phone] 346-841008-15-2022 Consult note Author Kiko Corbett [facility] November 19, 2021 8:05pm Note Date/Time November 19, 2021 7: 01pm [facility] [address] [place] [address] Urology Consult Note Signed Patient: Simon Lott MR#: [id number] : 1950 Acct:[id number] Age/Sex: 71 / M Adm Date: 2 Loc: Room: [address] [place] [address] Type: ADM IN Attending Dr: Landon Grullon MD Copies to: DO Landon Mays MD Kathy M Lue, MD~ History of Present Illness Consult Details Consult Date: 11/19/2021 Reason for Urology Consult: Obstructive uropathy Requesting Provider: Landon Grullon MD HPI: 71 yo M with hx of BL ureteral stones s/p stents and ureteroscopy in the past byDr Giles in 2020, BPH with LUTS on tamsulosin at home, as well as history of CVA (on Plavix), CKD3 now CKD4 since August 2021, IDDM2, alcoholic liver disease, hep C, PAD and diabetic foot ulcer currently undergoing IV abx treatment (vanc, meropenem) for osteomyelitis who was admitted from SNF for fevers and chills x 1day. He is being medically managed for acute on CKD, hyperkalemia and metabolic acidosis by hospitalists and nephrology. ID, vascular and podiatry are following. No plans for surgical intervention at this time, as pt is refusing amputation. On admission, his Cr 3.43 from baseline 2-3.5 over the past year, Tm99F, WBC 19.8 to 30 shortly after, has now downtrended and is 14.8. Urine and blood cultures are negative. CT AP wo contrast demonstrated atelectasis, non obstructing 5mm left lower pole nephrolithaisis with mild-moderate hydroureteronephrosis to the proximal ureter without obvious obstruction. Also had subcutaneous edema and increasing inguinal/pelvic adenopathy greater on the right. Due to persistent elevated Cr 3.38 from 3.43 on admission (around his baseline since 08/2021 but not prior), CT AP was repeated showing persistent, similar L proximal hydroureteronephrosis despite sanchez placement with good urine output, remains on Lasix BID for edema, which is improving. Urine remains clear yellow. He currently denies flank pain, fever, chills, n/v or GI issues. He denies issues voiding prior to admission except weaker stream. Prior UTIs resolved after stone treatment. Of note he is COVID positive, asymptomatic without cough, shortness of breath orany respiratory symptoms. Current smoker PSH L toe amputation, appendectomy, splenectomy for ruptured spleen, BL URS/laser, stent placement and removal 07/[address] Giles Review of Systems Review of Systems Review of systems: General: denies fever, chills, wt loss Skin: denies rash or jaundice, +foot ulcers HEENT: denies epistaxis or oral lesion Neurological: denies weakness or sensory change Respiratory: denies dyspnea or shortness of breath Cardiac: denies chest pain or palpitations Gastrointestinal: denies nausea, emesis, diarrhea Urinary: denies dysuria or hematuria Musculoskeletal: denies muscle or back pain Psychiatric: denies mood or affect disorder Hematologic: + easy bleeding or bruising PMFSH Vaccinated for COVID-19?: Yes Medical History Alcohol abuse Amputated toe of left foot ALL 5 TOES Anemia BPH (benign prostatic hyperplasia) Cellulitis of left foot Chronic foot ulcer Diabetes Foot drop Hepatitis C HTN (hypertension) Hyperlipidemia Major depressive disorder Neuropathy PVD (peripheral vascular disease) Ruptured spleen Stroke Surgical History History of appendectomy History of transmetatarsal amputation of left foot Family History Mother Diabetes Father Diabetes Sister Diabetes Brother Diabetes Social History Smoking Status: Current some day smoker Tobacco Type: cigarettes Substance Use Type: None Substance Abuse Comment: NONE X 7 MONTHS Meds Medications and Allergies Allergies codeine Allergy (Verified 05/18/21 09:55) Unknown Reaction lisinopril Allergy (Verified 05/18/21 09:55) Swelling of Lip/Tongue/Throat Home Medications tamsulosin 0.4 mg capsule (Flomax) 0.4 mg PO BID 12/25/16 [History Confirmed 11/14/21] gabapentin 800 mg tablet (Neurontin) 800 mg PO TID 01/26/20 [History Confirmed 11/14/21] acetaminophen 325 mg tablet (Tylenol) 650 mg PO Q4H PRN Pain 03/21/20 [History Confirmed 11/14/21] alpha lipoic acid 300 mg capsule 200 mg PO DAILY 03/21/20 [History Confirmed 11/14/21] duloxetine 20 mg capsule,delayed release 60 mg PO BID 03/21/20 [History Confirmed 11/14/21] insulin aspart U-100 100 unit/mL subcutaneous solution (Novolog U-100 Insulin aspart) See Protocol subcut ACHS 03/21/20 [History Confirmed 11/14/21] amitriptyline 10 mg tablet 10 mg PO HS 05/25/20 [History Confirmed 11/14/21] ammonium lactate 12 % topical cream 1 applic topical QSHIFT 05/25/20 [History Confirmed 11/14/21] atorvastatin 10 mg tablet 10 mg PO HS 05/25/20 [History Confirmed 11/14/21] clopidogrel 75 mg tablet 75 mg PO DAILY 05/25/20 [History Confirmed 11/14/21] acarbose 100 mg tablet 100 mg PO TID 05/18/21 [History Confirmed 11/14/21] ascorbic acid (vitamin C) 500 mg tablet 500 mg PO DAILY 05/18/21 [History Confirmed 11/14/21] ferrous sulfate 324 mg (65 mg iron) tablet,delayed release 325 mg PO QMWF 05/18/21 [History Confirmed 11/14/21] insulin detemir U-100 100 unit/mL (3 mL) subcutaneous pen (Levemir FlexTouch U- 100 Insulin) 42 unit subcut DAILY 05/18/21 [History Confirmed 11/14/21] losartan 25 mg tablet 25 mg PO DAILY 05/18/21 [History Confirmed 11/14/21] melatonin 5 mg tablet 5 mg PO HS PRN Insomnia 05/18/21 [History Confirmed 11/14/21] potassium chloride 20 mEq tablet,extended release 20 meq PO DAILY 05/18/21 [History Confirmed 11/14/21] folic acid 1 mg tablet 1 mg PO DAILY 11/14/21 [History Confirmed 11/14/21] loteprednol etabonate 0.5 % eye drops,suspension 1 drp Eye-Left QID 11/14/21 [History Confirmed 11/14/21] sodium hypochlorite 0.25 % solution (Dakin's Solution) 1 irrig topical BID 11/14/21 [History Confirmed 11/14/21] Exam Physical Exam Vital Signs: Temp Pulse Resp BP Pulse Ox O2 Del Method 97.6 F 93 H 17 157/93 H 98 Room Air 11/19/21 16:00 11/19/21 16:00 11/19/21 16:00 11/19/21 16:00 11/19/21 16:00 11/19/21 16:00 Narrative: General: The patient appears nontoxic. Does not appear ill. Skin: Warm, dry. right foot wrapped. chronic BL lower extremity venous stasis skin changes HEENT: Normocephalic, atraumatic. Pupils equal, round, and reactive to light and accommodation. Oral mucosa moist. Respiratory: No increased respiratory effort. on RA Cardiac: Regular rate and rhythm, mild BL peripheral edema GI: Abdomen is soft, nontender, negative peritoneal signs : The bladder is nonpalpable. There is no CVA tenderness bilaterally. 16Fr sanchez to gravity with clear yellow urine Musculoskeletal: Moves all extremities, normal strength. R foot with dressing. Non weight bearing. Neurologic: Awake, alert, oriented Psychiatric: Affect normal to clinical condition Results Labs CBC & Chem 7: 11/19/21 05:39 11/19/21 05:39 Labs: Laboratory Results - Last 48 hrs. 11/19/21 15:46: POC Glucose 143 11/19/21 13:22: POC Glucose 166 11/19/21 07:48: POC Glucose 128 11/19/21 05:39: PHA Creatinine Clear 26.58, Sodium 135 L, Potassium 3.4 L, Chloride 106, Carbon Dioxide 21.8 L, BUN 40 H, Creatinine 3.38 H, Est GFR ( Amer) 22, Est GFR (Non-Af Amer) 18, Glucose 102 H, Calcium 7.7 L 11/19/21 05:39: Corrected WBC 14.8 H, Uncorrected WBC Count 14.8 H, RBC 3.02 L, Hgb 8.2 L, Hct 25.8 L, MCV 85.5, MCH 27.0 L, MCHC 31.6 L, RDW 18.1 H, Plt Count 227, MPV 9.5, Neut % (Auto) N/A, Lymph % (Auto) N/A, Brewster % (Auto) N/A, Eos % (Auto) N/A, Baso % (Auto) N/A, Neut # (Auto) N/A, Lymph # (Auto) N/A, Brewster # (Auto) N/A, Eos # (Auto) N/A, Baso # (Auto) N/A, Nucleated RBC % (auto) 0.1, Lymphocytes % 31, Monocytes % 7, Eosinophils % 4 H, Segmented Neutrophils 58, Platelet Estimate Normal, Plt Morphology Comment Normal, RBC Morphology N/A, Hypochromasia Slight, Anisocytosis Moderate, Target Cells Moderate, SchistocytesSlight 11/19/21 02:25: POC Glucose 118, POC Glucose Comment Glu2: cleaned meter 11/18/21 20:55: POC Glucose 146, POC Glucose Comment Glu2: cleaned meter 11/18/21 16:10: POC Glucose 154 11/18/21 11:48: POC Glucose 144 11/18/21 07:48: POC Glucose 115 11/18/21 05:44: Random Vancomycin 19.8 11/18/21 05:44: PHA Creatinine Clear 27.18, Sodium 138, Potassium 3.7, Chloride 108, Carbon Dioxide 22.3, BUN 41 H, Creatinine 3.29 H, Est GFR ( Amer) 23, Est GFR (Non-Af Amer) 19, Glucose 82, Calcium 7.6 L 11/18/21 05:44: Corrected WBC 15.3 H, Uncorrected WBC Count 15.3 H, RBC 2.78 L, Hgb 7.5 L, Hct 23.9 L, MCV 86.0, MCH 27.2 L, MCHC 31.6 L, RDW 17.8 H, Plt Count 221, MPV 9.2, Neut % (Auto) N/A, Lymph % (Auto) N/A, Brewster % (Auto) N/A, Eos % (Auto) N/A, Baso % (Auto) N/A, Neut # (Auto) N/A, Lymph # (Auto) N/A, Brewster # (Auto) N/A, Eos # (Auto) N/A, Baso # (Auto) N/A, Nucleated RBC % (auto) 0.2, Lymphocytes % 25, Monocytes % 2, Eosinophils % 7 H, Segmented Neutrophils 66, Platelet Estimate Normal, Plt Morphology Comment Normal, RBC Morphology N/A, Hypochromasia Moderate, Anisocytosis Moderate, Target Cells Moderate 11/18/21 02:59: POC Glucose 100, POC Glucose Comment Glu2: cleaned meter 11/17/21 21:01: POC Glucose 133, POC Glucose Comment Glu2: cleaned meter Microbiology Microbiology: 11/14/21 13:23 Blood - Right Hand Blood Culture - Final NO GROWTH 5 DAYS 11/14/21 13:00 Blood - Right Antecubital Blood Culture - Final NO GROWTH [address] scan - abdomen: report reviewed and image reviewed CT scan - pelvis: report reviewed and image reviewed Additional studies: CT ABDOMEN AND PELVIS WITHOUT CONTRAST COMPARISON: 05/25/2020 CLINICAL DATA: Fever and sepsis.? Wound at the foot.? History of acute kidney injury. Spiral images were obtained through the abdomen and pelvis without contrast.? This CT exam was performed using one or more following dose reduction techniques: Automated exposure control, adjustment of the mA and/or kV accordingto patient size, or use of iterative reconstruction technique. Limited cuts through the lung bases show dependent atelectasis.? Right gynecomastia is visualized. Evaluation of the intra-abdominal organs is slightly limited by the absence of contrast and motion artifact.? There are calcified hepatic granulomas.? The gallbladder is partially distended.? No obvious calcified gallstones are noted.?There is evidence of prior splenectomy.? The pancreas and adrenal glands show noacute findings.? There is bilateral perinephric fibrofatty stranding.? There is a stone at the lower pole of the left kidney measuring approximately 5 mm in size.? There is moderate left hydronephrosis.? There is also mild proximal ureteral dilatation and periureteral stranding.? No ureteral stones are identified. There is minor atherosclerotic disease at the aorta and iliac arteries.? There are tiny retroperitoneal and mesenteric lymph nodes.? There is no ascites.? There are clips along the greater curvature of the stomach.? The stomach is under distended proximally and there is air at the antrum.? The small bowel loops are not dilated.? There is stool along the colon.? There is slight levoscoliotic curvature and degenerative changes involving the spine, greatest at the lumbosacral junction. Images through the pelvis show nondistended small bowel.? No appendiceal inflammation is present.? The distal colon is underdistended and there segments of apparent wall thickening.? No prominent diverticular disease is visualized.? There is a Sanchez catheter within the urinary bladder along with a small amount of air that was probably introduced iatrogenically.? The bladder wall appears thickened.? No prostate enlargement is noted.? There are bilateral inguinal lymph nodes.? Some of these are prominent.? The largest on the right measuring 19 x 35 mm.? These have increased in size.? There are also smaller nodes along the iliac chain.? No ascites is seen.? There is subcutaneous edema. CT/CT abdomen pelvis wo con IMPRESSION: ? BIBASILAR ATELECTASIS. ? LEFT NEPHROLITHIASIS. ? LEFT HYDRONEPHROSIS AND PROXIMAL HYDROURETER OF UNCERTAIN ETIOLOGY.? URETERAL STRICTURE IS POSSIBLE GIVEN THE HISTORY OF URETERAL STONES AND STENT. ? SLIGHT URINARY BLADDER WALL THICKENING THOUGH THIS MAY RELATE TO? INCOMPLETE DISTENTION. ? INCREASING INGUINAL AND PELVIC ADENOPATHY, GREATER ON THE RIGHT. ? SUBCUTANEOUS EDEMA. REPEAT CT AP WO CONTRAST 11/19/21 Bilateral perinephric stranding identified.? Stone in the lower pole of the LEFTkidney is unchanged measuring 5 mm.? Moderate LEFT hydronephrosis redemonstrated.? Mild proximal ureteral dilatation and perirenal stranding identified.? No ureteral stone identified. Assessment/Plan (1) Lab test positive for detection of COVID-19 virus: Code(s): U07.1 - COVID-19 (2) TOM (acute kidney injury): Code(s): N17.9 - Acute kidney failure, unspecified (3) Hydroureteronephrosis: Code(s): N13.30 - Unspecified hydronephrosis (4) CKD (chronic kidney disease) stage 4, GFR 15-29 ml/min: Code(s): N18.4 - Chronic kidney disease, stage 4 (severe) Plan 71 yo M as above with complex medical history including IDDM, CVA on Plavix [id number] hx of BL ureteral stones s/p intervention 07/[address] Giles who is admitted with elevated leukocytosis likely secondary to osteomyelitis from diabetic foot ulcer undergoing IV abx care due to pt refusal for amputation. Incidentally COVID positive. Urology was consulted due incidental findings of persistent mild-mod L hydroureteronephrosis to proximal ureter in absence of ureteral stones/obstruction. Cr remains elevated 3.38 from 3.43 on admission, has lingered around this since 08/2021, prior Cr was 2-3 range. Pt remains asymptomatic with good urine output via sanchez while on diuretics. Unclear if acute on chronic renal failure secondary to left hydroureteronephrosis vs new baseline. No obstructing stone on left, however dilation stops in proximal-mid ureter. Cannot rule out stricture. Unfortunately,cannot undergo NM Lasix renal scan due to poor renal function to eval for obstruction. -Due to this finding and new baseline elevated renal function, would recommend further evaluation with cystoscopy, left retrograde pyelogram, left ureteral stent placement for maximal decompression to see if renal function improves. Periop risks elevated by complex medical history including Plavix, body habitus,incidental finding of COVID although asx unsure if this may cause post-anesthesia respiratory issues. -Will have anesthesia evaluate for risk assessment, appreciate Hospitalist inputregarding medical optimization/clearance. Pt states if there is any pulmonary risk with anesthesia in setting of asymptomatic COVID, would not want to undergoprocedure, which I agree with given lack of symptoms. -NPO at midnight for potential procedure tomorrow afternoon. -Cont sanchez decompression for strict i/o and decompression given continued diuresis Documented By: Kiko Corbett MD 11/19/21 1900 Signed By: <Electronically signed by Kiko Corbett MD> 11/19/212004 [facility] Work Phone: [phone] 675-648208-15-2022 Progress note Author Landon Grullon [facility] November 19, 2021 3:23pm Note Date/Time November 19, 2021 3: 09pm [facility] [address] [place] [address] Hospitalist Progress Note Signed Patient: Simon Lott MR#: [id number] : 1950 Acct:[id number] Age/Sex: 71 / M Adm Date: 2 Loc: Room: [address] [place] [address] Type: ADM IN Attending Dr: Landon Grullon MD Copies to: ~ Date of Service: 11/19/2021 Subjective Subjective Narrative: Patient seen and assessed at bedside today. He notes no major complaints at this time. He does ask why he is currently still in the hospital. I did explain to him regarding his IV antibiotics and concern for left-sided hydronephrosis. CT of the abdomen and pelvis repeated today is still pending read at the time of my assessment. Exam Physical Exam Vital Signs: Temp Pulse Resp BP Pulse Ox O2 Del Method 97.7 F 99 H 18 141/86 H 95 Room Air 11/19/21 07:48 11/19/21 07:48 11/19/21 07:48 11/19/21 07:48 11/19/21 07:48 11/19/21 08:00 Narrative: Constitutional: Elderly AA male, resting in bed in no acute distress HEENT: Moist mucous membranes, neck supple, no JVD Cardiovascular: RRR, no M/R/G, normal S1 and S2 Respiratory: Clear to auscultation bilaterally, no wheezes, rales or rhonchi GI: Soft, NTND, NABS, no rebound tenderness or guarding : Sanchez catheter in place Extremities: Bilateral lower extremities indurated with stasis dermatitis changes bilaterally in the distal legs. Feet are wrapped bilaterally in dressings covering patient's chronic wounds. Not visualized on today's examination Neuro: AAOx3, no focal deficits. Strength 5/5 throughout Skin: Chronic wounds on the feet bilaterally Psych: Calm, cooperative and conversant Objective Lab Results CBC & Chem 7: 11/19/21 05:39 11/19/21 05:39 Microbiology Results Microbiology 11/14/21 13:23 Blood - Right Hand Blood Culture - Final NO GROWTH 5 DAYS 11/14/21 13:00 Blood - Right Antecubital Blood Culture - Final NO GROWTH 5 DAYS Meds Allergies and Active Meds Allergies codeine Allergy (Verified 05/18/21 09:55) Unknown Reaction lisinopril Allergy (Verified 05/18/21 09:55) Swelling of Lip/Tongue/Throat Active Meds: Active Medications Generic Name Dose Route Start Last Admin Trade Name Freq PRN Reason Stop Dose Admin Acarbose 100 mg 11/15/21 08:00 11/19/21 08:48 Acarbose 50 Mg Tablet PO 11/15/22 07:59 100 mg TID.WITH.MEALS JULIANN Administration Acetaminophen 650 mg 11/14/21 17:42 11/15/21 18:15 Acetaminophen 325 Mg Tablet PO 11/14/22 17:41 650 mg Q4H PRN Administration Pain Amitriptyline HCl 10 mg 11/14/21 22:00 11/18/21 21:39 Amitriptyline 10 Mg Tablet PO 11/14/22 21:59 10 mg HS JULIANN Administration Ammonium Lactate 1 applic 11/14/21 22:00 11/19/21 06:53 Ammonium Lactate 12% Lot 226 Gm Bottle TOPICAL 11/14/22 21:59 1 applic QSHIFT JULIANN Administration Ascorbic Acid 500 mg 11/15/21 09:00 11/19/21 08:49 Ascorbic Acid 500 Mg Tablet PO 11/15/22 08:59 500 mg DAILY JULIANN Administration Atorvastatin Calcium 10 mg 11/14/21 22:00 11/18/21 21:39 Atorvastatin 10 Mg Tablet PO 11/14/22 21:59 10 mg HS JULIANN Administration Clopidogrel Bisulfate 75 mg 11/15/21 09:00 11/19/21 08:49 Clopidogrel Bisulfate 75 Mg Tablet PO 11/15/22 08:59 75 mg DAILY JULIANN Administration Dextrose 0 gm 11/14/21 17:38 Dextrose 50% In Water 25 Gm/50 Ml Syringe IV-PUSH 11/14/22 17:37 PRN PRN Hypoglycemia Duloxetine HCl 60 mg 11/16/21 09:00 11/19/21 08:49 Duloxetine 60 Mg Capsule.Dr PO 11/16/22 08:59 60 mg DAILY JULIANN Administration Ferrous Sulfate 324 mg 11/16/21 09:00 11/19/21 08:50 Ferrous Sulfate 324 Mg Tablet. PO 11/16/22 08:59 324 mg MoWeFr@0900 JULIANN Administration Folic Acid 1 mg 11/15/21 09:00 11/19/21 08:50 Folic Acid 1 Mg Tablet PO 11/15/22 08:59 1 mg DAILY JULIANN Administration Furosemide 40 mg 11/15/21 16:00 11/19/21 08:49 Furosemide 40 Mg/4 Ml Vial IV-PUSH 11/15/22 15:59 40 mg BID@0800,1600 JULIANN Administration Gabapentin 600 mg 11/15/21 21:00 11/18/21 21:39 Gabapentin 600 Mg Tablet PO 11/15/22 20:59 600 mg QPM JULIANN Administration Glucose 0 gm 11/14/21 17:38 Dextrose 40% Gel 15 Gm Tube PO 11/14/22 17:37 PRN PRN Hypoglycemia Heparin Sodium (Porcine) 5,000 unit 11/14/21 21:00 11/19/21 08:49 Heparin 5,000 Unit/Ml Vial SUBCUT 11/14/22 20:59 5,000 unit Q12HR JULIANN Administration Hydralazine HCl 10 mg 11/14/21 21:50 11/15/21 15:59 Hydralazine 20 Mg/Ml Vial IV-PUSH 11/14/22 21:49 10 mg Q4H PRN Administration Hypertension Meropenem 1 gm in 100 mls @ 200 mls/hr 11/15/21 06:00 11/19/21 05:10 Merrem IV 200 mls/hr Q12H JULIANN Administration Insulin Aspart 0 units 11/14/21 22:00 11/19/21 08:37 Insulin Aspart 300 Units/3 Ml Insuln.Pen SUBCUT 11/14/22 21:59 Not Given TID.WM.HS [facility] Protocol Insulin Detemir 42 units 11/15/21 09:00 11/19/21 08:50 Insulin Detemir 300 Units/3 Ml Insuln.Pen SUBCUT 11/15/22 08:59 42 units DAILY JULIANN Administration Losartan Potassium 50 mg 11/18/21 09:00 11/19/21 08:49 Losartan 50 Mg Tablet PO 11/18/22 08:59 50 mg DAILY JULIANN Administration Loteprednol Etabonate 1 drops 11/14/21 18:00 11/19/21 08:50 Loteprednol 0.5% Op Susp 100 Drops/5 Ml Bottle EYE-LEFT 11/14/22 17:59 1 drops QID JULIANN Administration Melatonin 5 mg 11/14/21 17:42 11/16/21 21:23 Melatonin 5 Mg Tablet PO 11/14/22 17:41 5 mg HS PRN Administration Insomnia Metoprolol Tartrate 5 mg 11/14/21 21:50 Metoprolol Tartrate 5 Mg/5 Ml Vial IV-PUSH 11/14/22 21:49 Q4H PRN Blood Pressure Nifedipine 30 mg 11/18/21 15:40 11/19/21 08:49 Nifedipine Er.24hr 30 Mg Tab.Er.24 PO 11/18/22 15:39 30 mg DAILY JLUIANN Administration Saccharomyces Boulardii 250 mg 11/15/21 08:00 11/19/21 08:50 Saccharomyces Boulardii 250 Mg Capsule PO 11/15/22 07:59 250 mg BID.WITH.MEALS JULIANN Administration Sodium Bicarbonate 650 mg 11/15/21 14:00 11/19/21 08:49 Sodium Bicarbonate 650 Mg Tablet PO 11/15/22 13:59 650 mg TID JULIANN Administration Sodium Chloride 0 ml 11/14/21 12:54 11/18/21 09:06 Sodium Chloride 0.9 % 10 Ml Syringe IV-PUSH 11/14/22 12:53 10 ml PRN PRN Administration Flush Sodium Chloride 0 ml 11/14/21 22:00 11/19/21 06:53 Sodium Chloride 0.9 % 10 Ml Syringe IV-PUSH 11/14/22 21:59 10 ml QSHIFT JULIANN Administration Sodium Hypochlorite 0 ml 11/14/21 21:00 11/19/21 08:38 Sodium Hypochlorite 0.25% 473 Ml Solution TOPICAL 11/14/22 20:59 Not Given BID JULIANN Tamsulosin HCl 0.4 mg 11/14/21 21:00 11/19/21 08:49 Tamsulosin 0.4 Mg Cap.Er.24h PO 11/14/22 20:59 0.4 mg BID JULIANN Administration Vancomycin HCl 1 each 11/14/21 17:38 Vancomycin - Pharmacy Dosing 1 Each Miscell IV PRN PRN ZZ.Pharmacy Consult Protocol A&P - Hospitalist Assessment/Plan (1) Sepsis: (2) Diabetic foot ulcer: (3) TOM (acute kidney injury): (4) CKD (chronic kidney disease) stage 3, GFR 30-59 ml/min: (5) Type 2 diabetes mellitus with diabetic chronic kidney disease: (6) Osteomyelitis of foot: (7) Acute hyperkalemia: (8) PVD (peripheral vascular disease): (9) Hydroureteronephrosis: Plan -Hydronephrosis is visualized on CT of the abdomen and this will repeat CT today ?WBC does continue to improve, did discuss with Dr. Ptit today and if repeat CTof the abdomen and pelvis does not continue to demonstrate hydronephrosis we will plan on 2-week course of antibiotic therapy -Consult urology if hydroureter persists -Continue broad-spectrum antibiotics with IV vancomycin and Meropenem dosed by pharmacy ? Appreciate infectious disease recommendations -Podiatry and vascular surgery on board, no surgical intervention warranted by patient at this time -Possible consideration of hyperbaric oxygen therapy -Continue current management DVT prophylaxis: SubQ heparin CODE STATUS: Full code Documented By: Landon Grullon MD 2 1505 Signed By: <Electronically signed by Landon Grullon MD> 11/19/21 1524 [facility] Work Phone: [phone] 107-773908-15-2022 Consult note Author Riya Pitt [facility] November 19, 2021 9:10am Note Date/Time November 19, 2021 8: 57am [facility] [address] [place] [address] Infect. Disease Consult Note Signed Patient: Simon Lott MR#: [id number] : 1950 Acct:[id number] Age/Sex: 71 / M Adm Date: 2 Loc: Room: [address] [place] [address] Type: ADM IN Attending Dr: Deo Bernabe DO Copies to: DO Riya Mays MD Shawn J Warner, ~ HPI Data of Consult Consult date: 11/19/21 Requesting Physician: Deo Bernabe DO Primary Care Provider: Maye Murray DO Consult Narrative History of present illness: Mr. Lott is a 71 year old male who was admitted back on November 14 sent over from a retirement facility due to fever. He was found to have acute kidney injury and an elevated white count and sinus tachycardia. Work-up of sepsis began. He has a chronic right foot diabetic infection that x-ray did show concerning findings of osteomyelitis. Both podiatry and vascular has evaluated the patient. Vascular states there is nothing they can do from an intervention standpoint to improve blood supply however the patient is not willing to accept amputation. Per podiatry's note the lower extremity look moreconsistent with cellulitis and his plantar ulcerations are unchanged. X-ray didmention cortical erosion of the distal fifth metatarsal for which was evaluated and no communication between the plantar wound in this area was able to be found. Patient also had as part of his work-up a CT scan abdomen pelvis on November 15 that showed left nephrolithiasis and left hydronephrosis and proximal hydroureter of uncertain etiology. Ureteral stricture was possible intervention. My understanding is a Sanchez catheter was placed and he has been having good urine output since. Creatinine however still remains elevated. Patient remains on meropenem/vancomycin. Patient looks comfortable. He states he feels otherwise good. I was consulted for leukocytosis and the diabetic footwound. CC: Deo Bernabe DO [facility] Attestation Statement: The following information was validated with the patient. Vaccinated for COVID-19?: Yes Medical History Alcohol abuse Amputated toe of left foot ALL 5 TOES Anemia BPH (benign prostatic hyperplasia) Cellulitis of left foot Chronic foot ulcer Diabetes Foot drop Hepatitis C HTN (hypertension) Hyperlipidemia Major depressive disorder Neuropathy PVD (peripheral vascular disease) Ruptured spleen Stroke Surgical History History of appendectomy History of transmetatarsal amputation of left foot Family History Mother Diabetes Father Diabetes Sister Diabetes Brother Diabetes Social History Smoking Status: Current some day smoker Tobacco Type: cigarettes Substance Use Type: None Substance Abuse Comment: NONE X 7 MONTHS Allergies and Medications Allergies and Active Meds Allergies codeine Allergy (Verified 05/18/21 09:55) Unknown Reaction lisinopril Allergy (Verified 05/18/21 09:55) Swelling of Lip/Tongue/Throat Active Medications Acarbose (Acarbose 50 Mg Tablet) 100 mg PO TID.WITH.MEALS JULIANN Stop: 11/15/22 07:59 Last Admin: 11/19/21 08:48 Dose: 100 mg Acetaminophen (Acetaminophen 325 Mg Tablet) 650 mg PO Q4H PRN PRN Reason: Pain Stop: 11/14/22 17:41 Last Admin: 11/15/21 18:15 Dose: 650 mg Amitriptyline HCl (Amitriptyline 10 Mg Tablet) 10 mg PO HS JULIANN Stop: 11/14/22 21:59 Last Admin: 11/18/21 21:39 Dose: 10 mg Ammonium Lactate (Ammonium Lactate 12% Lot 226 Gm Bottle) 1 applic TOPICAL QSHIFT JULIANN Stop: 11/14/22 21:59 Last Admin: 11/19/21 06:53 Dose: 1 applic Ascorbic Acid (Ascorbic Acid 500 Mg Tablet) 500 mg PO DAILY JULIANN Stop: 11/15/22 08:59 Last Admin: 11/19/21 08:49 Dose: 500 mg Atorvastatin Calcium (Atorvastatin 10 Mg Tablet) 10 mg PO HS JULIANN Stop: 11/14/22 21:59 Last Admin: 11/18/21 21:39 Dose: 10 mg Clopidogrel Bisulfate (Clopidogrel Bisulfate 75 Mg Tablet) 75 mg PO DAILY JULIANN Stop: 11/15/22 08:59 Last Admin: 11/19/21 08:49 Dose: 75 mg Dextrose (Dextrose 50% In Water 25 Gm/50 Ml Syringe) 0 gm IV-PUSH PRN PRN PRN Reason: Hypoglycemia Stop: 11/14/22 17:37 Duloxetine HCl (Duloxetine 60 Mg Capsule.) 60 mg PO DAILY JULIANN Stop: 11/16/22 08:59 Last Admin: 11/19/21 08:49 Dose: 60 mg Ferrous Sulfate (Ferrous Sulfate 324 Mg Tablet.) 324 mg PO MoWeFr@0900 JULIANN Stop: 11/16/22 08:59 Last Admin: 11/19/21 08:50 Dose: 324 mg Folic Acid (Folic Acid 1 Mg Tablet) 1 mg PO DAILY JULIANN Stop: 11/15/22 08:59 Last Admin: 11/19/21 08:50 Dose: 1 mg Furosemide (Furosemide 40 Mg/4 Ml Vial) 40 mg IV-PUSH BID@0800,1600 JULIANN Stop: 11/15/22 15:59 Last Admin: 11/19/21 08:49 Dose: 40 mg Gabapentin (Gabapentin 600 Mg Tablet) 600 mg PO QPM JULIANN Stop: 11/15/22 20:59 Last Admin: 11/18/21 21:39 Dose: 600 mg Glucose (Dextrose 40% Gel 15 Gm Tube) 0 gm PO PRN PRN PRN Reason: Hypoglycemia Stop: 11/14/22 17:37 Heparin Sodium (Porcine) (Heparin 5,000 Unit/Ml Vial) 5,000 unit SUBCUT Q12HR JULIANN Stop: 11/14/22 20:59 Last Admin: 11/19/21 08:49 Dose: 5,000 unit Hydralazine HCl (Hydralazine 20 Mg/Ml Vial) 10 mg IV-PUSH Q4H PRN PRN Reason: Hypertension Stop: 11/14/22 21:49 Last Admin: 11/15/21 15:59 Dose: 10 mg Meropenem (Merrem) 1 gm in 100 mls @ 200 mls/hr IV Q12H [facility] Last Admin: 11/19/21 05:10 Dose: 200 mls/hr Insulin Aspart (Insulin Aspart 300 Units/3 Ml Insuln.Pen) 0 units SUBCUT TID.WM.HS [facility]; Protocol Stop: 11/14/22 21:59 Last Admin: 11/19/21 08:37 Dose: Not Given Insulin Detemir (Insulin Detemir 300 Units/3 Ml Insuln.Pen) 42 units SUBCUT DAILY [facility] Stop: 11/15/22 08:59 Last Admin: 11/19/21 08:50 Dose: 42 units Losartan Potassium (Losartan 50 Mg Tablet) 50 mg PO DAILY [facility] Stop: 11/18/22 08:59 Last Admin: 11/19/21 08:49 Dose: 50 mg Loteprednol Etabonate (Loteprednol 0.5% Op Susp 100 Drops/5 Ml Bottle) 1 drops EYE-LEFT QID [facility] Stop: 11/14/22 17:59 Last Admin: 11/19/21 08:50 Dose: 1 drops Melatonin (Melatonin 5 Mg Tablet) 5 mg PO HS PRN PRN Reason: Insomnia Stop: 11/14/22 17:41 Last Admin: 11/16/21 21:23 Dose: 5 mg Metoprolol Tartrate (Metoprolol Tartrate 5 Mg/5 Ml Vial) 5 mg IV-PUSH Q4H PRN PRN Reason: Blood Pressure Stop: 11/14/22 21:49 Nifedipine (Nifedipine Er.24hr 30 Mg Tab.Er.24) 30 mg PO DAILY JULIANN Stop: 11/18/22 15:39 Last Admin: 11/19/21 08:49 Dose: 30 mg Saccharomyces Boulardii (Saccharomyces Boulardii 250 Mg Capsule) 250 mg PO BID.WITH.MEALS JULIANN Stop: 11/15/22 07:59 Last Admin: 11/19/21 08:50 Dose: 250 mg Sodium Bicarbonate (Sodium Bicarbonate 650 Mg Tablet) 650 mg PO TID JULIANN Stop: 11/15/22 13:59 Last Admin: 11/19/21 08:49 Dose: 650 mg Sodium Chloride (Sodium Chloride 0.9 % 10 Ml Syringe) 0 ml IV-PUSH PRN PRN PRN Reason: Flush Stop: 11/14/22 12:53 Last Admin: 11/18/21 09:06 Dose: 10 ml Sodium Chloride (Sodium Chloride 0.9 % 10 Ml Syringe) 0 ml IV-PUSH QSHIFT JULIANN Stop: 11/14/22 21:59 Last Admin: 11/19/21 06:53 Dose: 10 ml Sodium Hypochlorite (Sodium Hypochlorite 0.25% 473 Ml Solution) 0 ml TOPICAL BID JULIANN Stop: 11/14/22 20:59 Last Admin: 11/19/21 08:38 Dose: Not Given Tamsulosin HCl (Tamsulosin 0.4 Mg Cap.Er.24h) 0.4 mg PO BID JULIANN Stop: 11/14/22 20:59 Last Admin: 11/19/21 08:49 Dose: 0.4 mg Vancomycin HCl (Vancomycin - Pharmacy Dosing 1 Each Miscell) 1 each IV PRN PRN; Protocol PRN Reason: ZZ.Pharmacy Consult Exam Physical Exam Vital Signs: Temp Pulse Resp BP Pulse Ox O2 Del Method 97.7 F 99 H 18 141/86 H 95 Room Air 11/19/21 07:48 11/19/21 07:48 11/19/21 07:48 11/19/21 07:48 11/19/21 07:48 11/19/21 07:48 Const General: cooperative and no acute distress Orientation: oriented x3 HEENT Head: normal to inspection Eyes General: appearance normal, both eyes and all related structures Neck Neck: normal visual inspection Chest Chest palpation & inspection: normal inspection of the chest Resp Effort & Inspection: normal respiratory effort Cardio Palpation: normal PMI Rate: regular rate Rhythm: regular rhythm GI Inspection: normal to inspection Palpation: soft Auscultation: normal bowel sounds Skin General: other (chronic RLE skin changes; warm to touch) Neuro General: patient oriented x3 Extrem General: edema Other: R plantar ulceration; drainage Results Labs CBC & Chem 7: 11/19/21 05:39 11/19/21 05:39 Labs: 11/18/21 05:44: Corrected WBC 15.3 H, Uncorrected WBC Count 15.3 H 11/19/21 05:39: Corrected WBC 14.8 H, Uncorrected WBC Count 14.8 H 11/19/21 05:39: BUN 40 H, Creatinine 3.38 H Microbiology Results Microbiology Narrative: Microbiology - Results from entire visit 11/14/21 13:23 Blood - Right Hand Blood Culture - Preliminary No Growth 4 Days 11/14/21 13:00 Blood - Right Antecubital Blood Culture - Preliminary No Growth 4 Days 11/14/21 14:36 Clean Void Midstream Urine Culture - Final No Growth 2 Days 11/14/21 13:30 Nasal SARS Antigen (LFIA) - Final Imaging and Cardiology Status: report viewed by me Results Comments: 11/15 CT ABD: IMPRESSION: ? BIBASILAR ATELECTASIS. ? LEFT NEPHROLITHIASIS. ? LEFT HYDRONEPHROSIS AND PROXIMAL HYDROURETER OF UNCERTAIN ETIOLOGY.? URETERAL STRICTURE IS POSSIBLE GIVEN THE HISTORY OF URETERAL STONES AND STENT. ? SLIGHT URINARY BLADDER WALL THICKENING THOUGH THIS MAY RELATE TO? INCOMPLETE DISTENTION. ? INCREASING INGUINAL AND PELVIC ADENOPATHY, GREATER ON THE RIGHT. ? SUBCUTANEOUS EDEMA. 11/15 Foot MRI: IMPRESSION: ? SIGNAL CHANGES INVOLVING THE FIFTH METATARSAL WHICH ARE HIGHLY SUSPICIOUS FOR OSTEOMYELITIS GIVEN THE PRESENCE OF AN ADJACENT ULCER. ? PROMINENT SOFT TISSUE EDEMA. ? A&P - Infectious Disease (1) Diabetic foot ulcer: Status: Chronic (2) TOM (acute kidney injury): Status: Acute (3) Leukocytosis: Status: Acute (4) Cellulitis and abscess of right leg: Status: Acute (5) PAD (peripheral artery disease): Status: Acute (6) Lab test positive for detection of COVID-19 virus: Status: Acute Plan Patient had evidence of cellulitis of the right lower extremity that is documented which seems to be improving as on exam today it is warm but not significantly erythematous. He does have a chronic nonhealing right foot wound which is likely due to his underlying diabetes and poor vascular supply. He is not a candidate for vascular revascularization and patient is not willing to accept amputation. He has been on vancomycin and meropenem for skin and soft tissue infection. Podiatry is also evaluated the patient and feels no surgical indication is needed at this time. He is being treated for cellulitis/wound infection. He does have a acute on chronic kidney injury and CT scan done earlier this hospital stay shows left hydronephrosis and hydroureter that appeared to be new. He is having good urine output now with Sanchez catheter in place. Favor CT scan abdomen pelvis to reevaluate this abnormality. If persistent hydroureter exists then will consider urology consult. In the meantime continue vancomycin and meropenem. Of note patient's COVID test did come back positive but he has no respiratory symptoms. Documented By: Riya Pitt MD 11/19/21 0854 Signed By: <Electronically signed by MD Riya Pitt> 11/19/21 0910 [facility] Work Phone: [phone]) [phone] Progress note Author Deo Bernabe [facility] November 18, 2021 3:44pm Note Date/Time November 18, 2021 3: 44pm [facility] [address] [place] [address] Hospitalist Progress Note Signed Patient: Simon Lott MR#: [id number] : 1950 Acct:[id number] Age/Sex: 71 / M Adm Date: 2 Loc: Room: [address] [place] [address] Type: ADM IN Attending Dr: Deo Bernabe DO Copies to: ~ Date of Service: 11/18/2021 Subjective Subjective Narrative: Patient was seen and examined at bedside. Remained afebrile overnight. Reportsfeeling better today. No major events overnight. Patient asking when he can bedischarged. Exam Physical Exam Vital Signs: Temp Pulse Resp BP Pulse Ox O2 Del Method 97.7 F 98 H 16 186/98 H 99 Room Air 11/18/21 15:28 11/18/21 15:28 11/18/21 15:28 11/18/21 15:28 11/18/21 15:28 11/18/21 15:28 Narrative: General: awake alert, no acute distress HEENT: head atraumatic, normocephalic, moist mucous membranes, normal nose and ears, no throat lesions, normal conjunctiva Neck: supple no masses, no lymphadenopathy CVS: regular rate and rhythm, no murmurs or gallops Respiratory: clear to auscultation bilaterally, no wheezing or crackles, symmetric expansion GI: soft, nondistended, nontender, positive bowel sounds with no organomegaly Extremity: moves all extremities, no restrictions of movements, no calf tenderness, RLE edema, right foot is wrapped. Dressing CDI. Neuro: AOx3, CN II-VII intact. Moves all extremities in all planes of motion. Skin: dry, intact no rashes or lesions Objective Lab Results CBC & Chem 7: 11/18/21 05:44 11/18/21 05:44 Microbiology Results Microbiology 11/14/21 13:23 Blood - Right Hand Blood Culture - Preliminary No Growth 4 Days 11/14/21 13:00 Blood - Right Antecubital Blood Culture - Preliminary No Growth 4 Days Meds Allergies and Active Meds Allergies codeine Allergy (Verified 05/18/21 09:55) Unknown Reaction lisinopril Allergy (Verified 05/18/21 09:55) Swelling of Lip/Tongue/Throat Active Meds: Active Medications Generic Name Dose Route Start Last Admin Trade Name Freq PRN Reason Stop Dose Admin Acarbose 100 mg 11/15/21 08:00 11/18/21 11:35 Acarbose 50 Mg Tablet PO 11/15/22 07:59 100 mg TID.WITH.MEALS JULIANN Administration Acetaminophen 650 mg 11/14/21 17:42 11/15/21 18:15 Acetaminophen 325 Mg Tablet PO 11/14/22 17:41 650 mg Q4H PRN Administration Pain Amitriptyline HCl 10 mg 11/14/21 22:00 11/17/21 21:45 Amitriptyline 10 Mg Tablet PO 11/14/22 21:59 10 mg HS JULIANN Administration Ammonium Lactate 1 applic 11/14/21 22:00 11/18/21 13:27 Ammonium Lactate 12% Lot 226 Gm Bottle TOPICAL 11/14/22 21:59 1 applic QSHIFT JULIANN Administration Ascorbic Acid 500 mg 11/15/21 09:00 11/18/21 09:04 Ascorbic Acid 500 Mg Tablet PO 11/15/22 08:59 500 mg DAILY JULIANN Administration Atorvastatin Calcium 10 mg 11/14/21 22:00 11/17/21 21:45 Atorvastatin 10 Mg Tablet PO 11/14/22 21:59 10 mg HS JULIANN Administration Clopidogrel Bisulfate 75 mg 11/15/21 09:00 11/18/21 09:04 Clopidogrel Bisulfate 75 Mg Tablet PO 11/15/22 08:59 75 mg DAILY JULIANN Administration Dextrose 0 gm 11/14/21 17:38 Dextrose 50% In Water 25 Gm/50 Ml Syringe IV-PUSH 11/14/22 17:37 PRN PRN Hypoglycemia Duloxetine HCl 60 mg 11/16/21 09:00 11/18/21 09:04 Duloxetine 60 Mg Capsule. PO 11/16/22 08:59 60 mg DAILY JULIANN Administration Ferrous Sulfate 324 mg 11/16/21 09:00 11/16/21 09:22 Ferrous Sulfate 324 Mg Tablet. PO 11/16/22 08:59 324 mg MoWeFr@0900 JULIANN Administration Folic Acid 1 mg 11/15/21 09:00 11/18/21 09:04 Folic Acid 1 Mg Tablet PO 11/15/22 08:59 1 mg DAILY JULIANN Administration Furosemide 40 mg 11/15/21 16:00 11/18/21 09:03 Furosemide 40 Mg/4 Ml Vial IV-PUSH 11/15/22 15:59 40 mg BID@0800,1600 JULIANN Administration Gabapentin 600 mg 11/15/21 21:00 11/17/21 21:45 Gabapentin 600 Mg Tablet PO 11/15/22 20:59 600 mg QPM JULIANN Administration Glucose 0 gm 11/14/21 17:38 Dextrose 40% Gel 15 Gm Tube PO 11/14/22 17:37 PRN PRN Hypoglycemia Heparin Sodium (Porcine) 5,000 unit 11/14/21 21:00 11/18/21 11:04 Heparin 5,000 Unit/Ml Vial SUBCUT 11/14/22 20:59 5,000 unit Q12HR JULIANN Administration Hydralazine HCl 10 mg 11/14/21 21:50 11/15/21 15:59 Hydralazine 20 Mg/Ml Vial IV-PUSH 11/14/22 21:49 10 mg Q4H PRN Administration Hypertension Meropenem 1 gm in 100 mls @ 200 mls/hr 11/15/21 06:00 11/18/21 06:08 Merrem IV 200 mls/hr Q12H JULIANN Administration Insulin Aspart 0 units 11/14/21 22:00 11/18/21 13:28 Insulin Aspart 300 Units/3 Ml Insuln.Pen SUBCUT 11/14/22 21:59 Not Given TID.WM.HS [facility] Protocol Insulin Detemir 42 units 11/15/21 09:00 11/18/21 09:04 Insulin Detemir 300 Units/3 Ml Insuln.Pen SUBCUT 11/15/22 08:59 42 units DAILY JULIANN Administration Losartan Potassium 50 mg 11/18/21 09:00 11/18/21 09:04 Losartan 50 Mg Tablet PO 11/18/22 08:59 50 mg DAILY JULIANN Administration Loteprednol Etabonate 1 drops 11/14/21 18:00 11/18/21 13:28 Loteprednol 0.5% Op Susp 100 Drops/5 Ml Bottle EYE-LEFT 11/14/22 17:59 1 drops QID JULIANN Administration Melatonin 5 mg 11/14/21 17:42 11/16/21 21:23 Melatonin 5 Mg Tablet PO 11/14/22 17:41 5 mg HS PRN Administration Insomnia Metoprolol Tartrate 5 mg 11/14/21 21:50 Metoprolol Tartrate 5 Mg/5 Ml Vial IV-PUSH 11/14/22 21:49 Q4H PRN Blood Pressure Nifedipine 30 mg 11/18/21 15:40 Nifedipine Er.24hr 30 Mg Tab.Er.24 PO 11/18/22 15:39 DAILY JULIANN Saccharomyces Boulardii 250 mg 11/15/21 08:00 11/18/21 09:04 Saccharomyces Boulardii 250 Mg Capsule PO 11/15/22 07:59 250 mg BID.WITH.MEALS JULIANN Administration Sodium Bicarbonate 650 mg 11/15/21 14:00 11/18/21 13:28 Sodium Bicarbonate 650 Mg Tablet PO 11/15/22 13:59 650 mg TID JULIANN Administration Sodium Chloride 0 ml 11/14/21 12:54 11/18/21 09:06 Sodium Chloride 0.9 % 10 Ml Syringe IV-PUSH 11/14/22 12:53 10 ml PRN PRN Administration Flush Sodium Chloride 0 ml 11/14/21 22:00 11/18/21 13:28 Sodium Chloride 0.9 % 10 Ml Syringe IV-PUSH 11/14/22 21:59 10 ml QSHIFT JULIANN Administration Sodium Hypochlorite 0 ml 11/14/21 21:00 11/18/21 09:05 Sodium Hypochlorite 0.25% 473 Ml Solution TOPICAL 11/14/22 20:59 473 ml BID JULIANN Administration Tamsulosin HCl 0.4 mg 11/14/21 21:00 11/18/21 11:04 Tamsulosin 0.4 Mg Cap.Er.24h PO 11/14/22 20:59 0.4 mg BID JULIANN Administration Vancomycin HCl 1 each 11/14/21 17:38 Vancomycin - Pharmacy Dosing 1 Each Miscell IV PRN PRN ZZ.Pharmacy Consult Protocol A&P - Hospitalist Assessment/Plan (1) Sepsis: (2) Diabetic foot ulcer: (3) TOM (acute kidney injury): (4) CKD (chronic kidney disease) stage 3, GFR 30-59 ml/min: (5) Type 2 diabetes mellitus with diabetic chronic kidney disease: (6) Osteomyelitis of foot: (7) Acute hyperkalemia: (8) PVD (peripheral vascular disease): Plan ? Continues to be afebrile and WBC is trending towards normal but still elevated. ?Heart rate also trending towards normal -Continue broad-spectrum antibiotics with vancomycin and Meropenem dosed by pharmacy ?Consult to infectious disease, cultures thus far remain negative. -Podiatry and vascular surgery on board, no acute intervention warranted. -Possible consideration of hyperbaric oxygen therapy -Continue current management DVT prophylaxis with heparin Full code ? Diabetic diet Documented By: Deo Bernabe DO 11/18/21 1541 Signed By: <Electronically signed by Deo Bernabe DO> 11/18/21 1544 [facility] Work Phone: [phone] 239-645708-14-2022 Progress note Author Olga Lidia Martin [facility] November 18, 2021 12:35pm Note Date/Time November 18, 2021 12 :24pm [facility] [address] [place] [address] Nephrology Progress Note Signed Patient: Simon Lott MR#: [id number] : 1950 Acct:[id number] Age/Sex: 71 / M Adm Date: 2 Loc: Room: 7S0277-6 Type: ADM IN Attending Dr: Deo Bernabe DO Copies to: ~ Date of Service: 11/18/2021 Subjective Subjective Narrative: This is a 71-year male with medical history of CKD, diabetes mellitus, hypertension, anemia, secondary hyperparathyroidism, alcoholic liver disease, PAD, diabetic foot ulcer, CVA, hepatitis C and nephrolithiasis was [facility]. On evaluation emergency room patient was hyperkalemia serum potassium 6.1 mg/L and metabolic acidosis with serum bicarbonate 17 mmol/L. Patient was also noted to have a leukocytosis and tachycardia. He had a foot x-ray in the emergency room which showed finding concerning for osteomyelitis of the fifth metatarsal bone. Patient was given IVfluid and was started on broad-spectrum antibiotics for diabetic foot infection and sepsis. Patient was given sodium bicarbonate, insulin with D50 and Lokelma in the emergency room for hyperkalemia. On review record it appears that patient has a longstanding CKD with baseline creatinine around 3.2?3.5 mg/dL. His renal function has been declining due to the progression of his CKD. He used to follow with Dr. Taylor for CKD care but missed the last appointment. Nephrology is consulted for his CKD, fluid overload, hyperkalemia and metabolic acidosis management. Interval history He has a fluid overload with hyperkalemia and metabolic acidosis due to the CKD. His serum potassium went back to normal with diuresis and correction of acidosis. He is currently on oral sodium bicarbonate and Lasix. His blood pressure still running high due to the hypovolemia. His home dose of losartan was increased to 50 mg daily and he has been tolerating well. He was seen by the vascular surgery for infected right foot. Vascular surgery recommended nonurgent BKA or AKA due to his severe PAD. He was also seen by thepodiatry and option of hyperbaric oxygen was discussed as patient is refusing BKA. He is currently on empiric antibiotic. He is feeling better today denies any chest pain palpitation cough nausea vomitdiarrhea and shortness of breath. Exam Physical Exam Vital Signs: Temp Pulse Resp BP Pulse Ox O2 Del Method 97.5 F L 90 16 182/92 H 98 Room Air 11/18/21 11:36 11/18/21 11:36 11/18/21 11:36 11/18/21 11:36 11/18/21 11:36 11/18/21 11:36 Narrative: General: Appears comfortable and not in distress Heart: S1-S2, no rub Lung: Bilateral air entry, no wheezing or crackles Abdomen: Soft, positive bowel sounds Extremities: 2+ edema, no cyanosis Head: Atraumatic, normocephalic Ear: No gross hearing Deficit or external ear redness Eyes: No pallor or redness Neck: No JVD or visible mass Skin: No rashes or bruises ESTATE CONSERVATOR: Awake,Alert, following simple command Musculoskeletal: No joint swelling or limitation of movement Psychiatric: Cooperative, normal mood and affect Objective Intake and Output I&O: Intake & Output 11/15/21 11/16/21 11/17/21 11/18/21 23:59 23:59 23:59 23:59 Intake Total 2550 / 2550 1680 / 1680 1110 / 1110 240 / 240 Output Total 2450 / 2450 3725 / 3725 3400 / 3400 850 / 850 Balance 100 / 100 -2045 / -2045 -2290 / -2290 -610 / -610 Weight 112.6 kg 114.8 kg 110 kg Meds and Allergies Meds: Active Medications Acarbose (Acarbose 50 Mg Tablet) 100 mg PO TID.WITH.MEALS [facility] Stop: 11/15/22 07:59 Last Admin: 11/18/21 11:35 Dose: 100 mg Acetaminophen (Acetaminophen 325 Mg Tablet) 650 mg PO Q4H PRN PRN Reason: Pain Stop: 11/14/22 17:41 Last Admin: 11/15/21 18:15 Dose: 650 mg Amitriptyline HCl (Amitriptyline 10 Mg Tablet) 10 mg PO HS [facility] Stop: 11/14/22 21:59 Last Admin: 11/17/21 21:45 Dose: 10 mg Ammonium Lactate (Ammonium Lactate 12% Lot 226 Gm Bottle) 1 applic TOPICAL QSHIFT JULIANN Stop: 11/14/22 21:59 Last Admin: 11/18/21 06:08 Dose: 1 applic Ascorbic Acid (Ascorbic Acid 500 Mg Tablet) 500 mg PO DAILY JULIANN Stop: 11/15/22 08:59 Last Admin: 11/18/21 09:04 Dose: 500 mg Atorvastatin Calcium (Atorvastatin 10 Mg Tablet) 10 mg PO HS JULIANN Stop: 11/14/22 21:59 Last Admin: 11/17/21 21:45 Dose: 10 mg Clopidogrel Bisulfate (Clopidogrel Bisulfate 75 Mg Tablet) 75 mg PO DAILY JULIANN Stop: 11/15/22 08:59 Last Admin: 11/18/21 09:04 Dose: 75 mg Dextrose (Dextrose 50% In Water 25 Gm/50 Ml Syringe) 0 gm IV-PUSH PRN PRN PRN Reason: Hypoglycemia Stop: 11/14/22 17:37 Duloxetine HCl (Duloxetine 60 Mg Capsule.) 60 mg PO DAILY JULIANN Stop: 11/16/22 08:59 Last Admin: 11/18/21 09:04 Dose: 60 mg Ferrous Sulfate (Ferrous Sulfate 324 Mg Tablet.) 324 mg PO MoWeFr@0900 JULIANN Stop: 11/16/22 08:59 Last Admin: 11/16/21 09:22 Dose: 324 mg Folic Acid (Folic Acid 1 Mg Tablet) 1 mg PO DAILY JULIANN Stop: 11/15/22 08:59 Last Admin: 11/18/21 09:04 Dose: 1 mg Furosemide (Furosemide 40 Mg/4 Ml Vial) 40 mg IV-PUSH BID@0800,1600 JULIANN Stop: 11/15/22 15:59 Last Admin: 11/18/21 09:03 Dose: 40 mg Gabapentin (Gabapentin 600 Mg Tablet) 600 mg PO QPM JULIANN Stop: 11/15/22 20:59 Last Admin: 11/17/21 21:45 Dose: 600 mg Glucose (Dextrose 40% Gel 15 Gm Tube) 0 gm PO PRN PRN PRN Reason: Hypoglycemia Stop: 11/14/22 17:37 Heparin Sodium (Porcine) (Heparin 5,000 Unit/Ml Vial) 5,000 unit SUBCUT Q12HR JULIANN Stop: 11/14/22 20:59 Last Admin: 11/18/21 11:04 Dose: 5,000 unit Hydralazine HCl (Hydralazine 20 Mg/Ml Vial) 10 mg IV-PUSH Q4H PRN PRN Reason: Hypertension Stop: 11/14/22 21:49 Last Admin: 11/15/21 15:59 Dose: 10 mg Meropenem (Merrem) 1 gm in 100 mls @ 200 mls/hr IV Q12H [facility] Last Admin: 11/18/21 06:08 Dose: 200 mls/hr Insulin Aspart (Insulin Aspart 300 Units/3 Ml Insuln.Pen) 0 units SUBCUT TID.WM.HS [facility]; Protocol Stop: 11/14/22 21:59 Last Admin: 11/18/21 09:03 Dose: Not Given Insulin Detemir (Insulin Detemir 300 Units/3 Ml Insuln.Pen) 42 units SUBCUT DAILY [facility] Stop: 11/15/22 08:59 Last Admin: 11/18/21 09:04 Dose: 42 units Losartan Potassium (Losartan 50 Mg Tablet) 50 mg PO DAILY [facility] Stop: 11/18/22 08:59 Last Admin: 11/18/21 09:04 Dose: 50 mg Loteprednol Etabonate (Loteprednol 0.5% Op Susp 100 Drops/5 Ml Bottle) 1 drops EYE-LEFT QID [facility] Stop: 11/14/22 17:59 Last Admin: 11/18/21 09:05 Dose: 1 drops Melatonin (Melatonin 5 Mg Tablet) 5 mg PO HS PRN PRN Reason: Insomnia Stop: 11/14/22 17:41 Last Admin: 11/16/21 21:23 Dose: 5 mg Metoprolol Tartrate (Metoprolol Tartrate 5 Mg/5 Ml Vial) 5 mg IV-PUSH Q4H PRN PRN Reason: Blood Pressure Stop: 11/14/22 21:49 Saccharomyces Boulardii (Saccharomyces Boulardii 250 Mg Capsule) 250 mg PO BID.WITH.MEALS [facility] Stop: 11/15/22 07:59 Last Admin: 11/18/21 09:04 Dose: 250 mg Sodium Bicarbonate (Sodium Bicarbonate 650 Mg Tablet) 650 mg PO TID [facility] Stop: 11/15/22 13:59 Last Admin: 11/18/21 09:05 Dose: 650 mg Sodium Chloride (Sodium Chloride 0.9 % 10 Ml Syringe) 0 ml IV-PUSH PRN PRN PRN Reason: Flush Stop: 11/14/22 12:53 Last Admin: 11/18/21 09:06 Dose: 10 ml Sodium Chloride (Sodium Chloride 0.9 % 10 Ml Syringe) 0 ml IV-PUSH QSHIFT [facility] Stop: 11/14/22 21:59 Last Admin: 11/18/21 06:08 Dose: 10 ml Sodium Hypochlorite (Sodium Hypochlorite 0.25% 473 Ml Solution) 0 ml TOPICAL BID JULIANN Stop: 11/14/22 20:59 Last Admin: 11/18/21 09:05 Dose: 473 ml Tamsulosin HCl (Tamsulosin 0.4 Mg Cap.Er.24h) 0.4 mg PO BID JULIANN Stop: 11/14/22 20:59 Last Admin: 11/18/21 11:04 Dose: 0.4 mg Vancomycin HCl (Vancomycin - Pharmacy Dosing 1 Each Miscell) 1 each IV PRN PRN; Protocol PRN Reason: ZZ.Pharmacy Consult Allergies codeine Allergy (Verified 05/18/21 09:55) Unknown Reaction lisinopril Allergy (Verified 05/18/21 09:55) Swelling of Lip/Tongue/Throat Results Labs CBC & Chem 7: 11/18/21 05:44 11/18/21 05:44 Labs: 11/18/21 05:44 BUN 41 H Creatinine 3.29 H Radiology Impressions Impressions - last 24 hours: Any impression(s) listed above is documentation that was entered by the reading physician into a diagnostic report(s) for Simon Lott. I have reviewed the report(s) and am incorporating any findings in the treatment plan of this patient where applicable. A&P - Nephrology Assessment/Plan (1) High anion gap metabolic acidosis: Assessment/Problem Details: He had metabolic acidosis likely due to the CKD. He has no evidence of lactic acidosis of ketoacidosis. His acidosis corrected with diuresis and sodium bicarbonate (2) Hyperkalemia: Assessment/Problem Details: He has hyperkalemia and due to the combination of the CKD, metabolic acidosis, potassium supplement and losartan. His potassium is back to normal with the Lasix and correction of acidosis. Patient has been tolerating losartan well. (3) CKD (chronic kidney disease) stage 4, GFR 15-29 ml/min: Assessment/Problem Details: He has a CKD due to the diabetic kidney disease and hypertensive nephrosclerosis. His baseline serum creatinine is 3.2 to 3.5 mg/dL. (4) Sepsis: Assessment/Problem Details: He has a sepsis likely due to the diabetic foot infection. His x-ray foot showed evidence of the osteomyelitis. Podiatry and vascular surgery has been consulted. (5) Hypertensive chronic kidney disease with stage 1 through stage 4 chronic kidney disease, or unspecified chronic kidney disease: Assessment/Problem Details: His blood pressure is high and he appears to be hypervolemic. (6) Type 2 diabetes mellitus with diabetic chronic kidney disease: Assessment/Problem Details: He has insulin-dependent type 2 diabetes mellitus currently using insulin Levemir at home. (7) Anemia: Assessment/Problem Details: He has a anemia likely due to the chronic infection, CKD and iron deficiency. His hemoglobin is low but stable. His serum free light chain ratio, serum immunofixation and SPEP are unremarkable. Plan * Continue Lasix 40 mg IV twice daily * Continue 50 mg daily. Will monitor serum potassium closely due to the hyperkalemia. Continue to hold home dose of the oral potassium. * Continue oral sodium bicarbonate 650 mg mg p.o. 3 times daily * Continue oral iron. Due to the active infection we will avoid IV iron. Will follow UPEP and urine immunofixation. * Continue empiric antibiotic adjust as needed based on culture sensitivity. Pharmacy to dose medication. * Continue insulin and adjust the dose as needed keep the blood sugar between 100 to 150 mg/dL. * Check renal function daily and monitor input output. Documented By: Olga Lidia Martin MD 11/18/21 1222 Signed By: <Electronically signed by Olga Lidia Martin MD> 11/18/21 5928 [facility] Work Phone: [phone]) 506-788808-13-2022 Progress note Author Olga Lidia Martin [facility] November 17, 2021 1:02pm Note Date/Time November 17, 2021 1: 02pm [facility] [address] [place] [address] Nephrology Progress Note Signed Patient: Simon Lott MR#: [id number] : 1950 Acct:[id number] Age/Sex: 71 / M Adm Date: 2 Loc: 4 Room: [address] [place] [address] Type: ADM IN Attending Dr: Julian Jones MD Copies to: ~ Date of Service: 11/17/2021 Subjective Subjective Narrative: This is a 71-year male with medical history of CKD, diabetes mellitus, hypertension, anemia, secondary hyperparathyroidism, alcoholic liver disease, PAD, diabetic foot ulcer, CVA, hepatitis C and nephrolithiasis was [facility]. On evaluation emergency room patient was hyperkalemia serum potassium 6.1 mg/L and metabolic acidosis with serum bicarbonate 17 mmol/L. Patient was also noted to have a leukocytosis and tachycardia. He had a foot x-ray in the emergency room which showed finding concerning for osteomyelitis of the fifth metatarsal bone. Patient was given IVfluid and was started on broad-spectrum antibiotics for diabetic foot infection and sepsis. Patient was given sodium bicarbonate, insulin with D50 and Lokelma in the emergency room for hyperkalemia. On review record it appears that patient has a longstanding CKD with baseline creatinine around 3.2?3.5 mg/dL. His renal function has been declining due to the progression of his CKD. He used to follow with Dr. Taylor for CKD care but missed the last appointment. Nephrology is consulted for his CKD, hyperkalemia and metabolic acidosis management. Interval history He is feeling better today denies any chest pain palpitation cough nausea vomitdiarrhea and shortness of breath. He was seen by the vascular surgery for infected right foot. Vascular surgery recommended nonurgent BKA or AKA due to his severe PAD. He was also seen by the podiatry and option of hyperbaric oxygen was discussed as patient is refusing BKA. Exam Physical Exam Vital Signs: Temp Pulse Resp BP Pulse Ox O2 Del Method 97.6 F 95 H 20 188/99 H 99 Room Air 11/17/21 12:11/17/21 12:11/17/21 12:11/17/21 12:11/17/21 12:11/17/21 12:00 Narrative: General: Appears comfortable and not in distress Heart: S1-S2, no rub Lung: Bilateral air entry, no wheezing or crackles Abdomen: Soft, positive bowel sounds Extremities: 2+ edema, no cyanosis Head: Atraumatic, normocephalic Ear: No gross hearing Deficit or external ear redness Eyes: No pallor or redness Neck: No JVD or visible mass Skin: No rashes or bruises ESTATE CONSERVATOR: Awake,Alert, following simple command Musculoskeletal: No joint swelling or limitation of movement Psychiatric: Cooperative, normal mood and affect Objective Intake and Output I&O: Intake & Output 11/14/21 11/15/21 11/16/21 11/17/21 23:59 23:59 23:59 23:59 Intake Total 1350 / 1350 2550 / 2550 1680 / 1680 100 / 100 Output Total 525 / 525 2450 / 2450 3725 / 3725 950 / 950 Balance 825 / 825 100 / 100 -2045 / -2045 -850 / -850 Weight 112.6 kg 112.6 kg 114.8 kg Meds and Allergies Meds: Active Medications Acarbose (Acarbose 50 Mg Tablet) 100 mg PO TID.WITH.MEALS [facility] Stop: 11/15/22 07:59 Last Admin: 11/17/21 09:09 Dose: Not Given Acetaminophen (Acetaminophen 325 Mg Tablet) 650 mg PO Q4H PRN PRN Reason: Pain Stop: 11/14/22 17:41 Last Admin: 11/15/21 18:15 Dose: 650 mg Amitriptyline HCl (Amitriptyline 10 Mg Tablet) 10 mg PO HS [facility] Stop: 11/14/22 21:59 Last Admin: 11/16/21 21:23 Dose: 10 mg Ammonium Lactate (Ammonium Lactate 12% Lot 226 Gm Bottle) 1 applic TOPICAL QSHIFT [facility] Stop: 11/14/22 21:59 Last Admin: 11/17/21 05:44 Dose: 1 applic Ascorbic Acid (Ascorbic Acid 500 Mg Tablet) 500 mg PO DAILY [facility] Stop: 11/15/22 08:59 Last Admin: 11/17/21 09:08 Dose: 500 mg Atorvastatin Calcium (Atorvastatin 10 Mg Tablet) 10 mg PO HS [facility] Stop: 11/14/22 21:59 Last Admin: 11/16/21 21:23 Dose: 10 mg Clopidogrel Bisulfate (Clopidogrel Bisulfate 75 Mg Tablet) 75 mg PO DAILY [facility] Stop: 11/15/22 08:59 Last Admin: 11/17/21 09:09 Dose: 75 mg Dextrose (Dextrose 50% In Water 25 Gm/50 Ml Syringe) 0 gm IV-PUSH PRN PRN PRN Reason: Hypoglycemia Stop: 11/14/22 17:37 Duloxetine HCl (Duloxetine 60 Mg Capsule.Dr) 60 mg PO DAILY [facility] Stop: 11/16/22 08:59 Last Admin: 11/17/21 09:08 Dose: 60 mg Ferrous Sulfate (Ferrous Sulfate 324 Mg Tablet.Dr) 324 mg PO MoWeFr@0900 [facility] Stop: 11/16/22 08:59 Last Admin: 11/16/21 09:22 Dose: 324 mg Folic Acid (Folic Acid 1 Mg Tablet) 1 mg PO DAILY [facility] Stop: 11/15/22 08:59 Last Admin: 11/17/21 09:08 Dose: 1 mg Furosemide (Furosemide 40 Mg/4 Ml Vial) 40 mg IV-PUSH BID@0800,1600 [facility] Stop: 11/15/22 15:59 Last Admin: 11/16/21 17:20 Dose: 40 mg Gabapentin (Gabapentin 600 Mg Tablet) 600 mg PO QPM [facility] Stop: 11/15/22 20:59 Last Admin: 11/16/21 21:23 Dose: 600 mg Glucose (Dextrose 40% Gel 15 Gm Tube) 0 gm PO PRN PRN PRN Reason: Hypoglycemia Stop: 11/14/22 17:37 Heparin Sodium (Porcine) (Heparin 5,000 Unit/Ml Vial) 5,000 unit SUBCUT Q12HR [facility] Stop: 11/14/22 20:59 Last Admin: 11/17/21 09:10 Dose: 5,000 unit Hydralazine HCl (Hydralazine 20 Mg/Ml Vial) 10 mg IV-PUSH Q4H PRN PRN Reason: Hypertension Stop: 11/14/22 21:49 Last Admin: 11/15/21 15:59 Dose: 10 mg Meropenem (Merrem) 1 gm in 100 mls @ 200 mls/hr IV Q12H [facility] Last Admin: 11/17/21 05:43 Dose: 200 mls/hr Insulin Aspart (Insulin Aspart 300 Units/3 Ml Insuln.Pen) 0 units SUBCUT TID.WM.HS [facility]; Protocol Stop: 11/14/22 21:59 Last Admin: 11/17/21 09:09 Dose: Not Given Insulin Detemir (Insulin Detemir 300 Units/3 Ml Insuln.Pen) 42 units SUBCUT DAILY [facility] Stop: 11/15/22 08:59 Last Admin: 11/17/21 09:10 Dose: 42 units Losartan Potassium (Losartan 50 Mg Tablet) 50 mg PO DAILY [facility] Stop: 11/18/22 08:59 Loteprednol Etabonate (Loteprednol 0.5% Op Susp 100 Drops/5 Ml Bottle) 1 drops EYE-LEFT QID [facility] Stop: 11/14/22 17:59 Last Admin: 11/17/21 09:10 Dose: 1 drops Melatonin (Melatonin 5 Mg Tablet) 5 mg PO HS PRN PRN Reason: Insomnia Stop: 11/14/22 17:41 Last Admin: 11/16/21 21:23 Dose: 5 mg Metoprolol Tartrate (Metoprolol Tartrate 5 Mg/5 Ml Vial) 5 mg IV-PUSH Q4H PRN PRN Reason: Blood Pressure Stop: 11/14/22 21:49 Saccharomyces Boulardii (Saccharomyces Boulardii 250 Mg Capsule) 250 mg PO BID.WITH.MEALS [facility] Stop: 11/15/22 07:59 Last Admin: 11/17/21 09:08 Dose: 250 mg Sodium Bicarbonate (Sodium Bicarbonate 650 Mg Tablet) 650 mg PO TID [facility] Stop: 11/15/22 13:59 Last Admin: 11/17/21 09:08 Dose: 650 mg Sodium Chloride (Sodium Chloride 0.9 % 10 Ml Syringe) 0 ml IV-PUSH PRN PRN PRN Reason: Flush Stop: 11/14/22 12:53 Last Admin: 11/17/21 09:11 Dose: 10 ml Sodium Chloride (Sodium Chloride 0.9 % 10 Ml Syringe) 0 ml IV-PUSH QSHIFT [facility] Stop: 11/14/22 21:59 Last Admin: 11/17/21 05:43 Dose: 10 ml Sodium Hypochlorite (Sodium Hypochlorite 0.25% 473 Ml Solution) 0 ml TOPICAL BID [facility] Stop: 11/14/22 20:59 Last Admin: 11/17/21 09:11 Dose: 473 ml Tamsulosin HCl (Tamsulosin 0.4 Mg Cap.Er.24h) 0.4 mg PO BID [facility] Stop: 11/14/22 20:59 Last Admin: 11/17/21 09:11 Dose: Not Given Vancomycin HCl (Vancomycin - Pharmacy Dosing 1 Each Miscell) 1 each IV PRN PRN; Protocol PRN Reason: ZZ.Pharmacy Consult Allergies codeine Allergy (Verified 05/18/21 09:55) Unknown Reaction lisinopril Allergy (Verified 05/18/21 09:55) Swelling of Lip/Tongue/Throat Results Labs CBC & Chem 7: 11/17/21 05:49 11/17/21 05:49 Labs: 11/17/21 05:49 BUN 42 H Creatinine 3.24 H Radiology Impressions Impressions - last 24 hours: Any impression(s) listed above is documentation that was entered by the reading physician into a diagnostic report(s) for Simon Lott. I have reviewed the report(s) and am incorporating any findings in the treatment plan of this patient where applicable. A&P - Nephrology Assessment/Plan (1) High anion gap metabolic acidosis: Assessment/Problem Details: He has a metabolic acidosis likely due to the CKD. He has no evidence of lacticacidosis of ketoacidosis. (2) Hyperkalemia: Assessment/Problem Details: He has hypokalemia and due to the combination of the CKD, metabolic acidosis, potassium supplement and losartan. (3) CKD (chronic kidney disease) stage 4, GFR 15-29 ml/min: Assessment/Problem Details: He has a CKD due to the diabetic kidney disease and hypertensive nephrosclerosis. His baseline serum creatinine is 3.2 to 3.5 mg/dL. (4) Sepsis: Assessment/Problem Details: He has a sepsis likely due to the diabetic foot infection. His x-ray foot showed evidence of the osteomyelitis. Podiatry and vascular surgery has been consulted. (5) Hypertensive chronic kidney disease with stage 1 through stage 4 chronic kidney disease, or unspecified chronic kidney disease: Assessment/Problem Details: His blood pressure is high and he appears to be hypervolemic. (6) Type 2 diabetes mellitus with diabetic chronic kidney disease: Assessment/Problem Details: He has insulin-dependent type 2 diabetes mellitus currently using insulin Levemir at home. (7) Anemia: Assessment/Problem Details: He has a anemia likely due to the chronic infection and CKD.. Differential diagnoses are iron deficiency of B12 or folate deficiency or paraproteinemia. Plan * Continue Lasix 40 mg IV twice daily * Increase losartan 50 mg daily. Will monitor serum potassium closely due to the hyperkalemia. Continue to hold home dose of the oral potassium. * Continue oral sodium bicarbonate 650 mg mg p.o. 3 times daily * Continue empiric antibiotic adjust as needed based on culture sensitivity. Pharmacy to dose medication. * Continue insulin and adjust the dose as needed keep the blood sugar between 100 to 150 mg/dL. * Check renal function daily and monitor input output. Documented By: Olga Lidia Martin MD 11/17/21 8415 Signed By: <Electronically signed by Olga Lidia Martin MD> 11/17/21 2416 [facility] Work Phone: [phone] 940-332608-13-2022 Progress note Author Julian Jones [facility] November 17, 2021 12:46pm Note Date/Time November 17, 2021 12 :46pm [facility] [address] [place] [address] Hospitalist Progress Note Signed Patient: Simon Lott MR#: [id number] : 1950 Acct:[id number] Age/Sex: 71 / M Adm Date: 2 Loc: Room: [address] [place] [address] Type: ADM IN Attending Dr: Julian Jones MD Copies to: ~ Date of Service: 11/17/2021 Subjective Subjective Narrative: Patient was seen and examined at bedside. Remained afebrile overnight. Reportsfeeling better today. No major events overnight. Exam Physical Exam Vital Signs: Temp Pulse Resp BP Pulse Ox O2 Del Method 97.6 F 95 H 20 188/99 H 99 Room Air 11/17/21 12:00 11/17/21 12:00 11/17/21 12:00 11/17/21 12:00 11/17/21 12:00 11/17/21 12:00 Narrative: General: awake and alert, no acute distress HEENT: head atraumatic, normocephalic, moist mucous membranes, normal nose and ears, no throat lesions, normal conjunctiva Neck: supple no masses, no lymphadenopathy CVS: regular rate and rhythm, no murmurs or gallops Respiratory: clear to auscultation bilaterally, no wheezing or crackles, symmetric expansion GI: soft, nondistended, nontender, positive bowel sounds with no organomegaly Extremity: moves all extremities, no restrictions of movements, RLE edema >L , right foot is wrapped. Dressing C/D/I. amputated left toes. Neuro: AOx3, CN II-VII grossly intact. Moves all extremities Objective Lab Results CBC & Chem 7: 11/17/21 05:49 11/17/21 05:49 Microbiology Results Microbiology 11/14/21 13:23 Blood - Right Hand Blood Culture - Preliminary No Growth 2 Days 11/14/21 13:00 Blood - Right Antecubital Blood Culture - Preliminary No Growth 2 Days 11/14/21 14:36 Clean Void Midstream Urine Culture - Final No Growth 2 Days Meds Allergies and Active Meds Allergies codeine Allergy (Verified 05/18/21 09:55) Unknown Reaction lisinopril Allergy (Verified 05/18/21 09:55) Swelling of Lip/Tongue/Throat Active Meds: Active Medications Generic Name Dose Route Start Last Admin Trade Name Freq PRN Reason Stop Dose Admin Acarbose 100 mg 11/15/21 08:00 11/17/21 09:09 Acarbose 50 Mg Tablet PO 11/15/22 07:59 Not Given TID.WITH.MEALS JULIANN Acetaminophen 650 mg 11/14/21 17:42 11/15/21 18:15 Acetaminophen 325 Mg Tablet PO 11/14/22 17:41 650 mg Q4H PRN Administration Pain Amitriptyline HCl 10 mg 11/14/21 22:00 11/16/21 21:23 Amitriptyline 10 Mg Tablet PO 11/14/22 21:59 10 mg HS JULIANN Administration Ammonium Lactate 1 applic 11/14/21 22:00 11/17/21 05:44 Ammonium Lactate 12% Lot 226 Gm Bottle TOPICAL 11/14/22 21:59 1 applic QSHIFT JULIANN Administration Ascorbic Acid 500 mg 11/15/21 09:00 11/17/21 09:08 Ascorbic Acid 500 Mg Tablet PO 11/15/22 08:59 500 mg DAILY JULIANN Administration Atorvastatin Calcium 10 mg 11/14/21 22:00 11/16/21 21:23 Atorvastatin 10 Mg Tablet PO 11/14/22 21:59 10 mg HS JULIANN Administration Clopidogrel Bisulfate 75 mg 11/15/21 09:00 11/17/21 09:09 Clopidogrel Bisulfate 75 Mg Tablet PO 11/15/22 08:59 75 mg DAILY [facility] Administration Dextrose 0 gm 11/14/21 17:38 Dextrose 50% In Water 25 Gm/50 Ml Syringe IV-PUSH 11/14/22 17:37 PRN PRN Hypoglycemia Duloxetine HCl 60 mg 11/16/21 09:00 11/17/21 09:08 Duloxetine 60 Mg Capsule.Dr PO 11/16/22 08:59 60 mg DAILY JULIANN Administration Ferrous Sulfate 324 mg 11/16/21 09:00 11/16/21 09:22 Ferrous Sulfate 324 Mg Tablet. PO 11/16/22 08:59 324 mg MoWeFr@0900 JULIANN Administration Folic Acid 1 mg 11/15/21 09:00 11/17/21 09:08 Folic Acid 1 Mg Tablet PO 11/15/22 08:59 1 mg DAILY JULIANN Administration Furosemide 40 mg 11/15/21 16:00 11/16/21 17:20 Furosemide 40 Mg/4 Ml Vial IV-PUSH 11/15/22 15:59 40 mg BID@0800,1600 JUL[facility]ANN Administration Gabapentin 600 mg 11/15/21 21:00 11/16/21 21:23 Gabapentin 600 Mg Tablet PO 11/15/22 20:59 600 mg QPM JULIANN Administration Glucose 0 gm 11/14/21 17:38 Dextrose 40% Gel 15 Gm Tube PO 11/14/22 17:37 PRN PRN Hypoglycemia Heparin Sodium (Porcine) 5,000 unit 11/14/21 21:00 11/17/21 09:10 Heparin 5,000 Unit/Ml Vial SUBCUT 11/14/22 20:59 5,000 unit Q12HR [facility]ANN Administration Hydralazine HCl 10 mg 11/14/21 21:50 11/15/21 15:59 Hydralazine 20 Mg/Ml Vial IV-PUSH 11/14/22 21:49 10 mg Q4H PRN Administration Hypertension Meropenem 1 gm in 100 mls @ 200 mls/hr 11/15/21 06:00 11/17/21 05:43 Merrem IV 200 mls/hr Q12H [facility] Administration Insulin Aspart 0 units 11/14/21 22:00 11/17/21 09:09 Insulin Aspart 300 Units/3 Ml Insuln.Pen SUBCUT 11/14/22 21:59 Not Given TID.WM.HS [facility] Protocol Insulin Detemir 42 units 11/15/21 09:00 11/17/21 09:10 Insulin Detemir 300 Units/3 Ml Insuln.Pen SUBCUT 11/15/22 08:59 42 units DAILY JUL[facility]ANN Administration Losartan Potassium 50 mg 11/18/21 09:00 Losartan 50 Mg Tablet PO 11/18/22 08:59 DAILY [facility] Loteprednol Etabonate 1 drops 11/14/21 18:00 11/17/21 09:10 Loteprednol 0.5% Op Susp 100 Drops/5 Ml Bottle EYE-LEFT 11/14/22 17:59 1 drops QID [facility] Administration Melatonin 5 mg 11/14/21 17:42 11/16/21 21:23 Melatonin 5 Mg Tablet PO 11/14/22 17:41 5 mg HS PRN Administration Insomnia Metoprolol Tartrate 5 mg 11/14/21 21:50 Metoprolol Tartrate 5 Mg/5 Ml Vial IV-PUSH 11/14/22 21:49 Q4H PRN Blood Pressure Saccharomyces Boulardii 250 mg 11/15/21 08:00 11/17/21 09:08 Saccharomyces Boulardii 250 Mg Capsule PO 11/15/22 07:59 250 mg BID.WITH.MEALS JULIANN Administration Sodium Bicarbonate 650 mg 11/15/21 14:00 11/17/21 09:08 Sodium Bicarbonate 650 Mg Tablet PO 11/15/22 13:59 650 mg TID JULIANN Administration Sodium Chloride 0 ml 11/14/21 12:54 11/17/21 09:11 Sodium Chloride 0.9 % 10 Ml Syringe IV-PUSH 11/14/22 12:53 10 ml PRN PRN Administration Flush Sodium Chloride 0 ml 11/14/21 22:00 11/17/21 05:43 Sodium Chloride 0.9 % 10 Ml Syringe IV-PUSH 11/14/22 21:59 10 ml QSHIFT [facility]UL[facility]ANN Administration Sodium Hypochlorite 0 ml 11/14/21 21:00 11/17/21 09:11 Sodium Hypochlorite 0.25% 473 Ml Solution TOPICAL 11/14/22 20:59 473 ml BID JULIANN Administration Tamsulosin HCl 0.4 mg 11/14/21 21:00 11/17/21 09:11 Tamsulosin 0.4 Mg Cap.Er.24h PO 11/14/22 20:59 Not Given BID JULIANN Vancomycin HCl 1 each 11/14/21 17:38 Vancomycin - Pharmacy Dosing 1 Each Miscell IV PRN PRN ZZ.Pharmacy Consult Protocol A&P - Hospitalist Assessment/Plan (1) Sepsis: (2) Diabetic foot ulcer: (3) TOM (acute kidney injury): (4) CKD (chronic kidney disease) stage 3, GFR 30-59 ml/min: (5) Type 2 diabetes mellitus with diabetic chronic kidney disease: (6) Osteomyelitis of foot: (7) Acute hyperkalemia: (8) PVD (peripheral vascular disease): Plan -Remains afebrile overnight, WBC downtrending -Continue broad-spectrum antibiotics with vancomycin and Meropenem dosed by pharmacy -Podiatry and vascular surgery on board, no acute intervention warranted -Blood cultures negative to date -Possible consideration of hyperbaric oxygen therapy -Continue current management DVT prophylaxis with heparin Documented By: Julian Jones MD 11/17/21 12 38 Signed By: <Electronically signed by Julian Jones MD> 11/17/21 1246 [facility] Work Phone: [phone] Progress note Author Olga Lidia Martin [facility] November 16, 2021 3:24pm Note Date/Time November 16, 2021 12 :33pm [facility] [address] [place] [address] Nephrology Progress Note Signed Patient: Simon Lott MR#: [id number] : 1950 Acct:[id number] Age/Sex: 71 / M Adm Date: 2 Loc: Room: [address] [place] [address] Type: ADM IN Attending Dr: Deo Bernabe DO Copies to: ~ Date of Service: 11/16/2021 Subjective Subjective Narrative: This is a 71-year male with medical history of CKD, diabetes mellitus, hypertension, anemia, secondary hyperparathyroidism, alcoholic liver disease, PAD, diabetic foot ulcer, CVA, hepatitis C and nephrolithiasis was transferred from the [facility] due to the fever. On evaluation emergency room patient was hyperkalemia serum potassium 6.1 mg/L and metabolic acidosis with serum bicarbonate 17 mmol/L. Patient was also noted to have a leukocytosis and tachycardia. He had a foot x-ray in the emergency room which showed finding concerning for osteomyelitis of the fifth metatarsal bone. Patient was given IVfluid and was started on broad-spectrum antibiotics for diabetic foot infection and sepsis. Patient was given sodium bicarbonate, insulin with D50 and Lokelma in the emergency room for hyperkalemia. On review record it appears that patient has a longstanding CKD with baseline creatinine around 3.2?3.5 mg/dL. His renal function has been declining due to the progression of his CKD. He used to follow with Dr. Taylor for CKD care but missed the last appointment. Nephrology is consulted for his CKD, hyperkalemia and metabolic acidosis management. Interval history Patient was seen examined bedside. He is feeling better today denies any chest pain palpitation cough nausea vomit diarrhea and shortness of breath. He has very good output with IV Lasix. Exam Physical Exam Vital Signs: Temp Pulse Resp BP Pulse Ox O2 Del Method 98.1 F 103 H 18 175/98 H 99 Room Air 11/16/21 11:07 11/16/21 11:07 11/16/21 11:07 11/16/21 11:07 11/16/21 11:07 11/16/21 11:07 Narrative: General: Appears comfortable and not in distress Heart: S1-S2, no rub Lung: Bilateral air entry, no wheezing or crackles Abdomen: Soft, positive bowel sounds Extremities: 2+ edema, no cyanosis Head: Atraumatic, normocephalic Ear: No gross hearing Deficit or external ear redness Eyes: No pallor or redness Neck: No JVD or visible mass Skin: No rashes or bruises ESTATE CONSERVATOR: Awake,Alert, following simple command Musculoskeletal: No joint swelling or limitation of movement Psychiatric: Cooperative, normal mood and affect Objective Intake and Output I&O: Intake & Output 11/13/21 11/14/21 11/15/21 11/16/21 23:59 23:59 23:59 23:59 Intake Total 1350 / 1350 2550 / 2550 630 / 630 Output Total 525 / 525 2450 / 2450 850 / 850 Balance 825 / 825 100 / 100 -220 / -220 Weight 112.6 kg 112.6 kg 114 kg Meds and Allergies Meds: Active Medications Acarbose (Acarbose 50 Mg Tablet) 100 mg PO TID.WITH.MEALS [facility] Stop: 11/15/22 07:59 Last Admin: 11/16/21 09:22 Dose: 100 mg Acetaminophen (Acetaminophen 325 Mg Tablet) 650 mg PO Q4H PRN PRN Reason: Pain Stop: 11/14/22 17:41 Last Admin: 11/15/21 18:15 Dose: 650 mg Amitriptyline HCl (Amitriptyline 10 Mg Tablet) 10 mg PO HS [facility] Stop: 11/14/22 21:59 Last Admin: 11/15/21 21:56 Dose: 10 mg Ammonium Lactate (Ammonium Lactate 12% Lot 226 Gm Bottle) 1 applic TOPICAL QSHIFT [facility] Stop: 11/14/22 21:59 Last Admin: 11/16/21 05:42 Dose: 1 applic Ascorbic Acid (Ascorbic Acid 500 Mg Tablet) 500 mg PO DAILY [facility] Stop: 11/15/22 08:59 Last Admin: 11/16/21 09:22 Dose: 500 mg Atorvastatin Calcium (Atorvastatin 10 Mg Tablet) 10 mg PO HS [facility] Stop: 11/14/22 21:59 Last Admin: 11/15/21 21:56 Dose: 10 mg Clopidogrel Bisulfate (Clopidogrel Bisulfate 75 Mg Tablet) 75 mg PO DAILY [facility] Stop: 11/15/22 08:59 Last Admin: 11/16/21 09:22 Dose: 75 mg Dextrose (Dextrose 50% In Water 25 Gm/50 Ml Syringe) 0 gm IV-PUSH PRN PRN PRN Reason: Hypoglycemia Stop: 11/14/22 17:37 Duloxetine HCl (Duloxetine 60 Mg Capsule.) 60 mg PO DAILY [facility] Stop: 11/16/22 08:59 Last Admin: 11/16/21 09:22 Dose: 60 mg Ferrous Sulfate (Ferrous Sulfate 324 Mg Tablet.) 324 mg PO MoWeFr@0900 [facility] Stop: 11/16/22 08:59 Last Admin: 11/16/21 09:22 Dose: 324 mg Folic Acid (Folic Acid 1 Mg Tablet) 1 mg PO DAILY [facility] Stop: 11/15/22 08:59 Last Admin: 11/16/21 09:22 Dose: 1 mg Furosemide (Furosemide 40 Mg/4 Ml Vial) 40 mg IV-PUSH BID@0800,1600 [facility] Stop: 11/15/22 15:59 Last Admin: 11/16/21 09:21 Dose: 40 mg Gabapentin (Gabapentin 600 Mg Tablet) 600 mg PO QPM [facility] Stop: 11/15/22 20:59 Last Admin: 11/15/21 21:56 Dose: 600 mg Glucose (Dextrose 40% Gel 15 Gm Tube) 0 gm PO PRN PRN PRN Reason: Hypoglycemia Stop: 11/14/22 17:37 Heparin Sodium (Porcine) (Heparin 5,000 Unit/Ml Vial) 5,000 unit SUBCUT Q12HR [facility] Stop: 11/14/22 20:59 Last Admin: 11/16/21 09:21 Dose: 5,000 unit Hydralazine HCl (Hydralazine 20 Mg/Ml Vial) 10 mg IV-PUSH Q4H PRN PRN Reason: Hypertension Stop: 11/14/22 21:49 Last Admin: 11/15/21 15:59 Dose: 10 mg Meropenem (Merrem) 1 gm in 100 mls @ 200 mls/hr IV Q12H [facility] Last Admin: 11/16/21 05:42 Dose: 200 mls/hr Insulin Aspart (Insulin Aspart 300 Units/3 Ml Insuln.Pen) 0 units SUBCUT TID.WM.HS [facility]; Protocol Stop: 11/14/22 21:59 Last Admin: 11/16/21 11:43 Dose: Not Given Insulin Detemir (Insulin Detemir 300 Units/3 Ml Insuln.Pen) 42 units SUBCUT DAILY [facility] Stop: 11/15/22 08:59 Last Admin: 11/16/21 09:24 Dose: 42 units Losartan Potassium (Losartan 25 Mg Tablet) 25 mg PO DAILY [facility] Stop: 11/16/22 12:59 Loteprednol Etabonate (Loteprednol 0.5% Op Susp 100 Drops/5 Ml Bottle) 1 drops EYE-LEFT QID [facility] Stop: 11/14/22 17:59 Last Admin: 11/16/21 09:23 Dose: 1 drops Melatonin (Melatonin 5 Mg Tablet) 5 mg PO HS PRN PRN Reason: Insomnia Stop: 11/14/22 17:41 Last Admin: 11/14/21 22:22 Dose: 5 mg Metoprolol Tartrate (Metoprolol Tartrate 5 Mg/5 Ml Vial) 5 mg IV-PUSH Q4H PRN PRN Reason: Blood Pressure Stop: 11/14/22 21:49 Saccharomyces Boulardii (Saccharomyces Boulardii 250 Mg Capsule) 250 mg PO BID.WITH.MEALS [facility] Stop: 11/15/22 07:59 Last Admin: 11/16/21 09:22 Dose: 250 mg Sodium Bicarbonate (Sodium Bicarbonate 650 Mg Tablet) 650 mg PO TID JULIANN Stop: 11/15/22 13:59 Last Admin: 11/16/21 09:22 Dose: 650 mg Sodium Chloride (Sodium Chloride 0.9 % 10 Ml Syringe) 0 ml IV-PUSH PRN PRN PRN Reason: Flush Stop: 11/14/22 12:53 Sodium Chloride (Sodium Chloride 0.9 % 10 Ml Syringe) 0 ml IV-PUSH QSHIFT [facility] Stop: 11/14/22 21:59 Last Admin: 11/16/21 05:42 Dose: 10 ml Sodium Hypochlorite (Sodium Hypochlorite 0.25% 473 Ml Solution) 0 ml TOPICAL BID JULIANN Stop: 11/14/22 20:59 Last Admin: 11/16/21 09:23 Dose: 473 ml Tamsulosin HCl (Tamsulosin 0.4 Mg Cap.Er.24h) 0.4 mg PO BID JULIANN Stop: 11/14/22 20:59 Last Admin: 11/16/21 09:22 Dose: 0.4 mg Vancomycin HCl (Vancomycin - Pharmacy Dosing 1 Each Miscell) 1 each IV PRN PRN; Protocol PRN Reason: ZZ.Pharmacy Consult Allergies codeine Allergy (Verified 05/18/21 09:55) Unknown Reaction lisinopril Allergy (Verified 05/18/21 09:55) Swelling of Lip/Tongue/Throat Results Labs CBC & Chem 7: 11/16/21 06:30 11/16/21 06:30 Labs: 11/15/21 11/16/21 15:40 06:30 BUN 40 H Creatinine 3.31 H Iron Saturation 3.0 L Ferritin 68.6 Radiology Impressions Impressions - last 24 hours: Impressions Foot MRI 11/15/21 05:00 IMPRESSION: SIGNAL CHANGES INVOLVING THE FIFTH METATARSAL WHICH ARE HIGHLY SUSPICIOUS FOR OSTEOMYELITIS GIVEN THE PRESENCE OF AN ADJACENT ULCER. PROMINENT SOFT TISSUE EDEMA. Impression dictated by: Alla Phan M.D.11/15/2021 2:58 PM Dictation Location: [place] [address] Abdomen/Pelvis CT 11/15/21 08:00 IMPRESSION: BIBASILAR ATELECTASIS. LEFT NEPHROLITHIASIS. LEFT HYDRONEPHROSIS AND PROXIMAL HYDROURETER OF UNCERTAIN ETIOLOGY. URETERAL STRICTURE IS POSSIBLE GIVEN THE HISTORY OF URETERAL STONES AND STENT. SLIGHT URINARY BLADDER WALL THICKENING THOUGH THIS MAY RELATE TO INCOMPLETE DISTENTION. INCREASING INGUINAL AND PELVIC ADENOPATHY, GREATER ON THE RIGHT. SUBCUTANEOUS EDEMA. Impression dictated by: Alla Phan M.D.11/15/2021 1:18 PM Dictation Location: [id number] Any impression(s) listed above is documentation that was entered by the reading physician into a diagnostic report(s) for Simon Lott. I have reviewed the report(s) and am incorporating any findings in the treatment plan of this patient where applicable. A&P - Nephrology Assessment/Plan (1) High anion gap metabolic acidosis: Assessment/Problem Details: He has a metabolic acidosis likely due to the CKD. He has no evidence of lacticacidosis of ketoacidosis. (2) Hyperkalemia: Assessment/Problem Details: He has hypokalemia and due to the combination of the CKD, metabolic acidosis, potassium supplement and losartan. (3) CKD (chronic kidney disease) stage 4, GFR 15-29 ml/min: Assessment/Problem Details: He has a CKD due to the diabetic kidney disease and hypertensive nephrosclerosis. His baseline serum creatinine is 3.2 to 3.5 mg/dL. (4) Sepsis: Assessment/Problem Details: He has a sepsis likely due to the diabetic foot infection. His x-ray foot showed evidence of the osteomyelitis. Podiatry and vascular surgery has been consulted. (5) Hypertensive chronic kidney disease with stage 1 through stage 4 chronic kidney disease, or unspecified chronic kidney disease: Assessment/Problem Details: His blood pressure is high and he appears to be hypervolemic. (6) Type 2 diabetes mellitus with diabetic chronic kidney disease: Assessment/Problem Details: He has insulin-dependent type 2 diabetes mellitus currently using insulin Levemir at home. (7) Anemia: Assessment/Problem Details: He has a anemia likely due to the chronic infection and CKD.. Differential diagnoses are iron deficiency of B12 or folate deficiency or paraproteinemia. Plan * Continue Lasix 40 mg IV twice daily * Continue oral sodium bicarbonate 650 mg mg p.o. 3 times daily * Continue empiric antibiotic adjust as needed based on culture sensitivity. Pharmacy to dose medication. * Continue insulin and adjust the dose as needed keep the blood sugar between 100 to 151/dL. * Continue to hold home dose of the losartan and potassium chloride. * Will add amlodipine if needed * Check renal function daily and monitor input output. Documented By: Olga Lidia Martin MD 11/16/21 1232 Signed By: <Electronically signed by Olga Lidia Martin MD> 11/16/21 [address] Work Phone: 1(198) 846-288108-12-2022 Progress note Author Deo Bernabe [facility] November 16, 2021 12:22pm Note Date/Time November 16, 2021 12 :21pm [facility] [address] [place], [place] [id number] Hospitalist Progress Note Signed Patient: Simon Lott MR#: [id number] : 1950 Acct:[id number] Age/Sex: 71 / M Adm Date: 2 Loc: Room: [address] [place] [address] Type: ADM IN Attending Dr: Deo Bernabe DO Copies to: ~ Date of Service: 11/16/2021 Subjective Subjective Narrative: Interviewed examined at bedside, denies any complaints overnight. States he is ready to go home. Exam Physical Exam Vital Signs: Temp Pulse Resp BP Pulse Ox O2 Del Method 98.1 F 103 H 18 175/98 H 99 Room Air 11/16/21 11:07 11/16/21 11:07 11/16/21 11:07 11/16/21 11:07 11/16/21 11:07 11/16/21 11:07 Narrative: General: awake alert, no acute distress HEENT: head atraumatic, normocephalic, moist mucous membranes, normal nose and ears, no throat lesions, normal conjunctiva Neck: supple no masses, no lymphadenopathy CVS: regular rate and rhythm, no murmurs or gallops Respiratory: clear to auscultation bilaterally, no wheezing or crackles, symmetric expansion GI: soft, nondistended, nontender, positive bowel sounds with no organomegaly Extremity: moves all extremities, no restrictions of movements, no calf tenderness, RLE edema, right foot is wrapped. Dressing CDI. Neuro: AOx3, CN II-VII intact. Moves all extremities in all planes of motion. Skin: dry, intact no rashes or lesions Objective Lab Results CBC & Chem 7: 11/16/21 06:30 11/16/21 06:30 Microbiology Results Microbiology 11/14/21 14:36 Clean Void Midstream Urine Culture - Final No Growth 2 Days 11/14/21 13:23 Blood - Right Hand Blood Culture - Preliminary No Growth 1 Day 11/14/21 13:00 Blood - Right Antecubital Blood Culture - Preliminary No Growth 1 Day Meds Allergies and Active Meds Allergies codeine Allergy (Verified 05/18/21 09:55) Unknown Reaction lisinopril Allergy (Verified 05/18/21 09:55) Swelling of Lip/Tongue/Throat Active Meds: Active Medications Generic Name Dose Route Start Last Admin Trade Name Freq PRN Reason Stop Dose Admin Acarbose 100 mg 11/15/21 08:00 11/16/21 09:22 Acarbose 50 Mg Tablet PO 11/15/22 07:59 100 mg TID.WITH.MEALS JULIANN Administration Acetaminophen 650 mg 11/14/21 17:42 11/15/21 18:15 Acetaminophen 325 Mg Tablet PO 11/14/22 17:41 650 mg Q4H PRN Administration Pain Amitriptyline HCl 10 mg 11/14/21 22:00 11/15/21 21:56 Amitriptyline 10 Mg Tablet PO 11/14/22 21:59 10 mg HS JULIANN Administration Ammonium Lactate 1 applic 11/14/21 22:00 11/16/21 05:42 Ammonium Lactate 12% Lot 226 Gm Bottle TOPICAL 11/14/22 21:59 1 applic QSHIFT JULIANN Administration Ascorbic Acid 500 mg 11/15/21 09:00 11/16/21 09:22 Ascorbic Acid 500 Mg Tablet PO 11/15/22 08:59 500 mg DAILY JULIANN Administration Atorvastatin Calcium 10 mg 11/14/21 22:00 11/15/21 21:56 Atorvastatin 10 Mg Tablet PO 11/14/22 21:59 10 mg HS JULIANN Administration Clopidogrel Bisulfate 75 mg 11/15/21 09:00 11/16/21 09:22 Clopidogrel Bisulfate 75 Mg Tablet PO 11/15/22 08:59 75 mg DAILY JULIANN Administration Dextrose 0 gm 11/14/21 17:38 Dextrose 50% In Water 25 Gm/50 Ml Syringe IV-PUSH 11/14/22 17:37 PRN PRN Hypoglycemia Duloxetine HCl 60 mg 11/16/21 09:00 11/16/21 09:22 Duloxetine 60 Mg Capsule.Dr IYER 11/16/22 08:59 60 mg DAILY JULIANN Administration Ferrous Sulfate 324 mg 11/16/21 09:00 11/16/21 09:22 Ferrous Sulfate 324 [address] Tablet.Dr IYER 11/16/22 08:59 324 mg MoWeFr@0900 JULIANN Administration Folic Acid 1 mg 11/15/21 09:00 11/16/21 09:22 Folic Acid 1 Mg Tablet PO 11/15/22 08:59 1 mg DAILY JULIANN Administration Furosemide 40 mg 11/15/21 16:00 11/16/21 09:21 Furosemide 40 Mg/4 Ml Vial IV-PUSH 11/15/22 15:59 40 mg BID@0800,1600 JULIANN Administration Gabapentin 600 mg 11/15/21 21:00 11/15/21 21:56 Gabapentin 600 Mg Tablet PO 11/15/22 20:59 600 mg QPM JULIANN Administration Glucose 0 gm 11/14/21 17:38 Dextrose 40% Gel 15 Gm Tube PO 11/14/22 17:37 PRN PRN Hypoglycemia Heparin Sodium (Porcine) 5,000 unit 11/14/21 21:00 11/16/21 09:21 Heparin 5,000 Unit/Ml Vial SUBCUT 11/14/22 20:59 5,000 unit Q12HR JULIANN Administration Hydralazine HCl 10 mg 11/14/21 21:50 11/15/21 15:59 Hydralazine 20 Mg/Ml Vial IV-PUSH 11/14/22 21:49 10 mg Q4H PRN Administration Hypertension Meropenem 1 gm in 100 mls @ 200 mls/hr 11/15/21 06:00 11/16/21 05:42 Merrem IV 200 mls/hr Q12H JULIANN Administration Insulin Aspart 0 units 11/14/21 22:00 11/16/21 11:43 Insulin Aspart 300 Units/3 Ml Insuln.Pen SUBCUT 11/14/22 21:59 Not Given TID.WM.HS [facility] Protocol Insulin Detemir 42 units 11/15/21 09:00 11/16/21 09:24 Insulin Detemir 300 Units/3 Ml Insuln.Pen SUBCUT 11/15/22 08:59 42 units DAILY JULIANN Administration Losartan Potassium 25 mg 11/16/21 13:00 Losartan 25 Mg Tablet PO 11/16/22 12:59 DAILY JULIANN Loteprednol Etabonate 1 drops 11/14/21 18:00 11/16/21 09:23 Loteprednol 0.5% Op Susp 100 Drops/5 Ml Bottle EYE-LEFT 11/14/22 17:59 1 drops QID JULIANN Administration Melatonin 5 mg 11/14/21 17:42 11/14/21 22:22 Melatonin 5 Mg Tablet PO 11/14/22 17:41 5 mg HS PRN Administration Insomnia Metoprolol Tartrate 5 mg 11/14/21 21:50 Metoprolol Tartrate 5 Mg/5 Ml Vial IV-PUSH 11/14/22 21:49 Q4H PRN Blood Pressure Saccharomyces Boulardii 250 mg 11/15/21 08:00 11/16/21 09:22 Saccharomyces Boulardii 250 Mg Capsule PO 11/15/22 07:59 250 mg BID.WITH.MEALS JULIANN Administration Sodium Bicarbonate 650 mg 11/15/21 14:00 11/16/21 09:22 Sodium Bicarbonate 650 Mg Tablet PO 11/15/22 13:59 650 mg TID JULIANN Administration Sodium Chloride 0 ml 11/14/21 12:54 Sodium Chloride 0.9 % 10 Ml Syringe IV-PUSH 11/14/22 12:53 PRN PRN Flush Sodium Chloride 0 ml 11/14/21 22:00 11/16/21 05:42 Sodium Chloride 0.9 % 10 Ml Syringe IV-PUSH 11/14/22 21:59 10 ml QSHIFT JULIANN Administration Sodium Hypochlorite 0 ml 11/14/21 21:00 11/16/21 09:23 Sodium Hypochlorite 0.25% 473 Ml Solution TOPICAL 11/14/22 20:59 473 ml BID JULIANN Administration Tamsulosin HCl 0.4 mg 11/14/21 21:00 11/16/21 09:22 Tamsulosin 0.4 Mg Cap.Er.24h PO 11/14/22 20:59 0.4 mg BID JULIANN Administration Vancomycin HCl 1 each 11/14/21 17:38 Vancomycin - Pharmacy Dosing 1 Each Miscell IV PRN PRN ZZ.Pharmacy Consult Protocol A&P - Hospitalist Assessment/Plan (1) Sepsis: (2) Diabetic foot ulcer: (3) TOM (acute kidney injury): (4) CKD (chronic kidney disease) stage 3, GFR 30-59 ml/min: (5) Type 2 diabetes mellitus with diabetic chronic kidney disease: (6) Osteomyelitis of foot: (7) Acute hyperkalemia: (8) PVD (peripheral vascular disease): Plan Assessment: Condition with sepsis, significant leukocytosis, acute kidney injury, and resultant hyperkalemia, with acute kidney injury on top of chronic kidney disease stage III, likely due to spread of infection from wounds on his right foot. X-ray of the emergency room does show bony destruction on the fifth metatarsal suggestive of osteomyelitis. The foot itself is extremely difficult to examine due to chronic massive edema and hyperkeratotic skin. Plan: Hospital mission, inpatient status. Continue broad-spectrum antibiotics with vancomycin dosed by pharmacy and meropenem, cultures have not finalized but WBC count is trending down, patient has been afebrile Podiatry and vascular surgery consulted, and appears to be no acute interventionfor this admission ? Though there is consideration of hyperbaric oxygen therapy. Podiatry MRI of the foot shows suspicion for osteomyelitis of the right fifth metatarsal with adjacent ulcer Giving bicarb therapy per nephrology Sanchez catheter was placed for monitoring of urine output. DVT prophylaxis with subcu heparin Documented By: Deo Bernabe DO 11/16/21 1217 Signed By: <Electronically signed by Deo Bernabe DO> 11/16/21 [address] [facility] Work Phone: 1(146) 485-336308-11-2022 Consult note Author Bhakti Ochoa [facility] November 15, 2021 5:10pm Note Date/Time November 15, 2021 5: 10pm [facility] [address] [place] [address] Podiatry Consult Note Signed Patient: Simon Lott MR#: [id number] : 1950 Acct:[id number] Age/Sex: 71 / M Adm Date: 2 Loc: Room: [address] [place] [address] Type: ADM IN Attending Dr: Deo Bernabe DO Copies to: DO Bhakti Mays DPM Shawn J Warner, DO~ HPI Data of Consult Consult Date: 11/15/21 Requesting Physician: Deo Bernabe DO Primary Care Provider: Maye Murray DO Consult Narrative Reason for consult: fever, malaise History of present illness: Mr. Lott is a 71 year old male known to me from private office. Patient has history of diabetes mellitus with peripheral neuropathy as well as chronic kidney disease and peripheral vascular disease. Patient has been a resident at [facility] for several months. Last visit into my private office was middle of August during which time we had been treating to plantar foot ulcerations right. Patient was not showing signs of improvement so my last treatment plan included vascular consult status post PVRs which were inconclusive due to noncompressibility. Also was trying to refer the patient [facility] for hyperbaric oxygen therapy. Patient had responded to previous wound VAC that was utilized on the plantar/posterior heel ulcer. Sincein the care facility they were unable to use the wound VAC due to the thickened slough skin surrounding the ulceration which prevented the drape from adhering. The care facility had a whirlpool that was not in service therefore we were not able to debride the surrounding skin for use of the wound VAC. Patient seen at bedside not feeling well fever and general malaise. Told me that he did test positive for COVID. When asked about his vascular visit he stated that when he had seen the vascular doctor in September he was told that he had no options for revascularizing the right leg and foot and the recommendation was below the kneeamputation right. Patient is very adamant that he does not want to pursue this course. PMFSH Vaccinated for COVID-19?: Yes Medical History Alcohol abuse Amputated toe of left foot ALL 5 TOES Anemia BPH (benign prostatic hyperplasia) Cellulitis of left foot Chronic foot ulcer Diabetes Foot drop Hepatitis C HTN (hypertension) Hyperlipidemia Major depressive disorder Neuropathy PVD (peripheral vascular disease) Ruptured spleen Stroke Surgical History History of appendectomy History of transmetatarsal amputation of left foot Family History Mother Diabetes Father Diabetes Sister Diabetes Brother Diabetes Social History Smoking Status: Current some day smoker Tobacco Type: cigarettes Substance Use Type: None Substance Abuse Comment: NONE X 7 MONTHS Meds Medications and Allergies Allergies codeine Allergy (Verified 05/18/21 09:55) Unknown Reaction lisinopril Allergy (Verified 05/18/21 09:55) Swelling of Lip/Tongue/Throat Home Medications tamsulosin 0.4 mg capsule (Flomax) 0.4 mg PO BID 12/25/16 [History Confirmed 11/14/21] gabapentin 800 mg tablet (Neurontin) 800 mg PO TID 10/21/20 [History Confirmed 11/14/21] acetaminophen 325 mg tablet (Tylenol) 650 mg PO Q4H PRN Pain 03/21/20 [History Confirmed 11/14/21] alpha lipoic acid 300 mg capsule 200 mg PO DAILY 03/21/20 [History Confirmed 11/14/21] duloxetine 20 mg capsule,delayed release 60 mg PO BID 03/21/20 [History Confirmed 11/14/21] insulin aspart U-100 100 unit/mL subcutaneous solution (Novolog U-100 Insulin aspart) See Protocol subcut ACHS 03/21/20 [History Confirmed 11/14/21] amitriptyline 10 mg tablet 10 mg PO HS 05/25/20 [History Confirmed 11/14/21] ammonium lactate 12 % topical cream 1 applic topical QSHIFT 05/25/20 [History Confirmed 11/14/21] atorvastatin 10 mg tablet 10 mg PO HS 05/25/20 [History Confirmed 11/14/21] clopidogrel 75 mg tablet 75 mg PO DAILY 05/25/20 [History Confirmed 11/14/21] acarbose 100 mg tablet 100 mg PO TID 05/18/21 [History Confirmed 11/14/21] ascorbic acid (vitamin C) 500 mg tablet 500 mg PO DAILY 05/18/21 [History Confirmed 11/14/21] ferrous sulfate 324 mg (65 mg iron) tablet,delayed release 325 mg PO QMWF 05/18/21 [History Confirmed 11/14/21] insulin detemir U-100 100 unit/mL (3 mL) subcutaneous pen (Levemir FlexTouch U- 100 Insulin) 42 unit subcut DAILY 05/18/21 [History Confirmed 11/14/21] losartan 25 mg tablet 25 mg PO DAILY 05/18/21 [History Confirmed 11/14/21] melatonin 5 mg tablet 5 mg PO HS PRN Insomnia 05/18/21 [History Confirmed 11/14/21] potassium chloride 20 mEq tablet,extended release 20 meq PO DAILY 05/18/21 [History Confirmed 11/14/21] folic acid 1 mg tablet 1 mg PO DAILY 11/14/21 [History Confirmed 11/14/21] loteprednol etabonate 0.5 % eye drops,suspension 1 drp Eye-Left QID 11/14/21 [History Confirmed 11/14/21] sodium hypochlorite 0.25 % solution (Dakin's Solution) 1 irrig topical BID 11/14/21 [History Confirmed 11/14/21] Exam Physical Exam Vital Signs: Temp Pulse Resp BP Pulse Ox O2 Del Method 100.8 F H 122 H 20 209/95 H 95 Room Air 11/15/21 15:43 11/15/21 15:43 11/15/21 15:43 11/15/21 15:43 11/15/21 15:43 11/15/21 15:43 Narrative: Bilateral lower extremity exam patient had left transplant amputation, left footwithout ulcerations, chronic edema, thickened skin. Right leg demonstrates chronic pitting and nonpitting edema with thickened skin patches, full thicknessplantar ulceration lateral distal foot sub metatarsal heads approximately 4 and 5 and extends to the midfoot measuring approximately 7 cm x 8 cm width and base that has depth measuring from approximately 3 mm to 6 mm, wound bed is pink and granular, moist, palpation of the ulcer reveals the wound is not probing to deeper tissues as there is no evidence of any tunneling. Periwound soft tissue is firm without cellulitis without sponginess, there is serosanguineous drainageon the dressing with no evidence of pus no odor is noted. Ulceration plantar right heel measures approximately 3 cm x 4 cm with an approximate depth of 4 mm. The base of this ulcer is pink and granular, moist, no periwound cellulitis no sponginess no tracking no tunneling no odor. Patient has nonpalpable pedal pulses. Patient's epicritic and protective sensations are absent bilateral. Results Labs CBC & Chem 7: 11/15/21 05:44 11/15/21 05:44 Hemoglobin A1c 5.6 % (4.3-5.6) 11/15/21 05:44 Microbiology Microbiology: Microbiology - Results from entire visit 11/14/21 13:23 Blood - Right Hand Blood Culture - Preliminary No Growth 1 Day 11/14/21 13:00 Blood - Right Antecubital Blood Culture - Preliminary No Growth 1 Day 11/14/21 14:36 Clean Void Midstream Urine Culture - Preliminary No Growth 1 Day 11/14/21 13:30 Nasal SARS Antigen (LFIA) - Final Assessment/Plan (1) Type 2 diabetes mellitus with foot ulcer: Code(s): E11.621 - Type 2 diabetes mellitus with foot ulcer; L97.509 - Non-pressure chronic ulcer of other part of unspecified foot with unspecified severity (2) PVD (peripheral vascular disease): Code(s): I73.9 - Peripheral vascular disease, unspecified (3) COVID-19: Code(s): U07.1 - COVID-19 Plan Compared to my wound evaluation in my office in mid August patient's plantar ulcerations are essentially unchanged but stable. Review of the x-rays and MRI show questionable osteomyelitis in the distal fifth metatarsal. Patient has hadprevious surgery in this area and while there appears to be a cortical erosion at the distal lateral aspect of the fifth metatarsal, today I am unable to find any communication between the wound and this area. Since I have seen this patient in the past right leg lacks findings consistent with cellulitis comparedto his usual baseline. Reviewed and appreciate vascular's consultation notes. Discussed with this patient that without appropriate vascular supply to the softtissues it is unlikely these wounds will heal. [facility] for hyper[facility]ic oxygen therapy. If he meets the criteria this could be an alternative treatmentoption however emphasizing to the patient that there are no guarantees that thiswill improve the status of the wounds. Documented By: Bhakti Ochoa DPM 11/15/21 1647 Signed By: <Electronically signed by ELBA Ochoa> 11/15/21 [address] [facility] Work Phone: 1(202) 368-366408-11-2022 Consult note Author Olga Lidia Martin [facility] November 15, 2021 3:20pm Note Date/Time November 15, 2021 11 :51am [facility] [address] [place] [address] Nephrology Consult Note Signed Patient: Simon Lott MR#: [id number] : 1950 Acct:[id number] Age/Sex: 71 / M Adm Date: 2 Loc: Room: [address] [place] [address] Type: ADM IN Attending Dr: Deo Bernabe DO Copies to: MD Maye Hadley DO Shawn J Warner, ~ Providers Consult Date: 11/15/21 Requesting Provider: Deo Bernabe DO Primary Care Provider: Maye Murray DO HPI Reason for Consult: CKD, hyperkalemia and metabolic acidosis management History of Present Illness: This is a 71-year male with medical history of CKD, diabetes mellitus, hypertension, anemia, secondary hyperparathyroidism, alcoholic liver disease, PAD, diabetic foot ulcer, CVA, hepatitis C and nephrolithiasis was transferred [facility] the [facility] due to the fever. On evaluation emergency room patient was hyperkalemia serum potassium 6.1 mg/L and metabolic acidosis with serum bicarbonate 17 mmol/L. Patient was also noted to have a leukocytosis and tachycardia. He had a foot x-ray in the emergency room which showed finding concerning for osteomyelitis of the fifth metatarsal bone. Patient was given IVfluid and was started on broad-spectrum antibiotics for diabetic foot infection and sepsis. Patient was given sodium bicarbonate, insulin with D50 and Lokelma in the emergency room for hyperkalemia. On review record it appears that patient has a longstanding CKD with baseline creatinine around 3.2?3.5 mg/dL. His renal function has been declining due to the progression of his CKD. He used to follow with Dr. Taylor for CKD care but missed the last appointment. Nephrology is consulted for his CKD, hyperkalemia and metabolic acidosis management. Patient was seen examined bedside reported that he had a COVID. Hedenies any shortness of breath but reported to have a increased leg swelling. Review of Systems Review of Systems All other systems reviewed & are negative unless noted below or in HPI Review of systems: Cardiovascular: denies any chest pain, palpitation Pulmonary: denies any cough, hemoptysis Gastrointestinal: denies any nausea, vomiting, diarrhea Neurological :denies any headache, numbness, weakness Endocrine: denies any polyuria, polydipsia Dermatological: denies any itching or rash PMFSH Vaccinated for COVID-19?: Yes Medical History Alcohol abuse Amputated toe of left foot ALL 5 TOES Anemia BPH (benign prostatic hyperplasia) Cellulitis of left foot Chronic foot ulcer Diabetes Foot drop Hepatitis C HTN (hypertension) Hyperlipidemia Major depressive disorder Neuropathy PVD (peripheral vascular disease) Ruptured spleen Stroke Surgical History History of appendectomy History of transmetatarsal amputation of left foot Family History Mother Diabetes Father Diabetes Sister Diabetes Brother Diabetes Social History Smoking Status: Current some day smoker Tobacco Type: cigarettes Substance Use Type: None Substance Abuse Comment: NONE X 7 MONTHS Meds Medications & Allergies Allergies codeine Allergy (Verified 05/18/21 09:55) Unknown Reaction lisinopril Allergy (Verified 05/18/21 09:55) Swelling of Lip/Tongue/Throat Home Medications tamsulosin 0.4 mg capsule (Flomax) 0.4 mg PO BID 12/25/16 [History Confirmed 11/14/21] gabapentin 800 mg tablet (Neurontin) 800 mg PO TID 01/26/20 [History Confirmed 11/14/21] acetaminophen 325 mg tablet (Tylenol) 650 mg PO Q4H PRN Pain 03/21/20 [History Confirmed 11/14/21] alpha lipoic acid 300 mg capsule 200 mg PO DAILY 03/21/20 [History Confirmed 11/14/21] duloxetine 20 mg capsule,delayed release 60 mg PO BID 03/21/20 [History Confirmed 11/14/21] insulin aspart U-100 100 unit/mL subcutaneous solution (Novolog U-100 Insulin aspart) See Protocol subcut ACHS 03/21/20 [History Confirmed 11/14/21] amitriptyline 10 mg tablet 10 mg PO HS 05/25/20 [History Confirmed 11/14/21] ammonium lactate 12 % topical cream 1 applic topical QSHIFT 05/25/20 [History Confirmed 11/14/21] atorvastatin 10 mg tablet 10 mg PO HS 05/25/20 [History Confirmed 11/14/21] clopidogrel 75 mg tablet 75 mg PO DAILY 05/25/20 [History Confirmed 11/14/21] acarbose 100 mg tablet 100 mg PO TID 05/18/21 [History Confirmed 11/14/21] ascorbic acid (vitamin C) 500 mg tablet 500 mg PO DAILY 05/18/21 [History Confirmed 11/14/21] ferrous sulfate 324 mg (65 mg iron) tablet,delayed release 325 mg PO QMWF 05/18/21 [History Confirmed 11/14/21] insulin detemir U-100 100 unit/mL (3 mL) subcutaneous pen (Levemir FlexTouch U- 100 Insulin) 42 unit subcut DAILY 05/18/21 [History Confirmed 11/14/21] losartan 25 mg tablet 25 mg PO DAILY 05/18/21 [History Confirmed 11/14/21] melatonin 5 mg tablet 5 mg PO HS PRN Insomnia 05/18/21 [History Confirmed 11/14/21] potassium chloride 20 mEq tablet,extended release 20 meq PO DAILY 05/18/21 [History Confirmed 11/14/21] folic acid 1 mg tablet 1 mg PO DAILY 11/14/21 [History Confirmed 11/14/21] loteprednol etabonate 0.5 % eye drops,suspension 1 drp Eye-Left QID 11/14/21 [History Confirmed 11/14/21] sodium hypochlorite 0.25 % solution (Dakin's Solution) 1 irrig topical BID 11/14/21 [History Confirmed 11/14/21] Active Medications: Active Medications Acarbose (Acarbose 50 Mg Tablet) 100 mg PO TID.WITH.MEALS JULIANN Stop: 11/15/22 07:59 Last Admin: 11/15/21 10:27 Dose: 100 mg Acetaminophen (Acetaminophen 325 Mg Tablet) 650 mg PO Q4H PRN PRN Reason: Pain Stop: 11/14/22 17:41 Last Admin: 11/14/21 22:23 Dose: 650 mg Amitriptyline HCl (Amitriptyline 10 Mg Tablet) 10 mg PO HS JULIANN Stop: 11/14/22 21:59 Last Admin: 11/14/21 22:22 Dose: 10 mg Ammonium Lactate (Ammonium Lactate 12% Lot 226 Gm Bottle) 1 applic TOPICAL QSHIFT JULIANN Stop: 11/14/22 21:59 Last Admin: 11/15/21 05:57 Dose: 1 applic Ascorbic Acid (Ascorbic Acid 500 Mg Tablet) 500 mg PO DAILY JULIANN Stop: 11/15/22 08:59 Last Admin: 11/15/21 10:27 Dose: 500 mg Atorvastatin Calcium (Atorvastatin 10 Mg Tablet) 10 mg PO HS JULIANN Stop: 11/14/22 21:59 Last Admin: 11/14/21 22:22 Dose: 10 mg Clopidogrel Bisulfate (Clopidogrel Bisulfate 75 Mg Tablet) 75 mg PO DAILY JULIANN Stop: 11/15/22 08:59 Last Admin: 11/15/21 10:27 Dose: 75 mg Dextrose (Dextrose 50% In Water 25 Gm/50 Ml Syringe) 0 gm IV-PUSH PRN PRN PRN Reason: Hypoglycemia Stop: 11/14/22 17:37 Duloxetine HCl (Duloxetine 60 Mg Capsule.) 60 mg PO DAILY [facility] Stop: 11/16/22 08:59 Ferrous Sulfate (Ferrous Sulfate 324 Mg Tablet.) 324 mg PO MoWeFr@0900 [facility] Stop: 11/16/22 08:59 Folic Acid (Folic Acid 1 Mg Tablet) 1 mg PO DAILY [facility] Stop: 11/15/22 08:59 Last Admin: 11/15/21 10:27 Dose: 1 mg Gabapentin (Gabapentin 600 Mg Tablet) 600 mg PO QPM [facility] Stop: 11/15/22 20:59 Glucose (Dextrose 40% Gel 15 Gm Tube) 0 gm PO PRN PRN PRN Reason: Hypoglycemia Stop: 11/14/22 17:37 Heparin Sodium (Porcine) (Heparin 5,000 Unit/Ml Vial) 5,000 unit SUBCUT Q12HR [facility] Stop: 11/14/22 20:59 Last Admin: 11/15/21 10:27 Dose: 5,000 unit Hydralazine HCl (Hydralazine 20 Mg/Ml Vial) 10 mg IV-PUSH Q4H PRN PRN Reason: Hypertension Stop: 11/14/22 21:49 Last Admin: 11/15/21 05:16 Dose: 10 mg Sodium Chloride (0.9% Sodium Chloride 1,000 Ml) 1,000 mls @ 100 mls/hr IV .[id number] Stop: 11/14/22 17:59 Last Admin: 11/15/21 05:16 Dose: 100 mls/hr Meropenem (Merrem) 1 gm in 100 mls @ 200 mls/hr IV Q12H [facility] Last Admin: 11/15/21 05:15 Dose: 200 mls/hr Insulin Aspart (Insulin Aspart 300 Units/3 Ml Insuln.Pen) 0 units SUBCUT TID.[facility]; Protocol Stop: 11/14/22 21:59 Last Admin: 11/15/21 08:56 Dose: Not Given Insulin Detemir (Insulin Detemir 300 Units/3 Ml Insuln.Pen) 42 units SUBCUT DAILY [facility] Stop: 11/15/22 08:59 Last Admin: 11/15/21 10:30 Dose: 42 units Loteprednol Etabonate (Loteprednol 0.5% Op Susp 100 Drops/5 Ml Bottle) 1 drops EYE-LEFT QID JULIANN Stop: 11/14/22 17:59 Last Admin: 11/15/21 10:29 Dose: 1 drops Melatonin (Melatonin 5 Mg Tablet) 5 mg PO HS PRN PRN Reason: Insomnia Stop: 11/14/22 17:41 Last Admin: 11/14/21 22:22 Dose: 5 mg Metoprolol Tartrate (Metoprolol Tartrate 5 Mg/5 Ml Vial) 5 mg IV-PUSH Q4H PRN PRN Reason: Blood Pressure Stop: 11/14/22 21:49 Saccharomyces Boulardii (Saccharomyces Boulardii 250 Mg Capsule) 250 mg PO BID.WITH.MEALS [facility] Stop: 11/15/22 07:59 Last Admin: 11/15/21 10:27 Dose: 250 mg Sodium Chloride (Sodium Chloride 0.9 % 10 Ml Syringe) 0 ml IV-PUSH PRN PRN PRN Reason: Flush Stop: 11/14/22 12:53 Sodium Chloride (Sodium Chloride 0.9 % 10 Ml Syringe) 0 ml IV-PUSH QSHIFT JULIANN Stop: 11/14/22 21:59 Last Admin: 11/15/21 05:58 Dose: 10 ml Sodium Hypochlorite (Sodium Hypochlorite 0.25% 473 Ml Solution) 0 ml TOPICAL BID JULIANN Stop: 11/14/22 20:59 Last Admin: 11/15/21 10:43 Dose: Not Given Tamsulosin HCl (Tamsulosin 0.4 Mg Cap.Er.24h) 0.4 mg PO BID JULIANN Stop: 11/14/22 20:59 Last Admin: 11/15/21 10:27 Dose: 0.4 mg Vancomycin HCl (Vancomycin - Pharmacy Dosing 1 Each Miscell) 1 each IV PRN PRN; Protocol PRN Reason: ZZ.Pharmacy Consult Exam Physical Exam Vital Signs: Temp Pulse Resp BP Pulse Ox O2 Del Method O2 Flow Rate 97.6 F 66 20 106/62 93 L Nasal Cannula 4 11/15/21 11:42 11/15/21 11:42 11/15/21 11:42 11/15/21 11:42 11/15/21 11:42 11/15/21 11:42 11/15/21 11:42 Narrative: General: Appears comfortable and not in distress Heart: S1-S2, no rub Lung: Bilateral air entry, no wheezing or crackles Abdomen: Soft, positive bowel sounds Extremities: 2+ edema, no cyanosis Head: Atraumatic, normocephalic Ear: No gross hearing Deficit or external ear redness Eyes: No pallor or redness Neck: No JVD or visible mass Skin: No rashes or bruises ESTATE CONSERVATOR: Awake,Alert, following simple command Musculoskeletal: No joint swelling or limitation of movement Psychiatric: Cooperative, normal mood and affect Results Labs CBC & Chem 7: 11/15/21 05:44 11/15/21 05:44 Labs: 11/14/21 11/14/21 11/14/21 13:00 14:36 17:57 BUN 34 H 34 H Creatinine 3.43 H 3.51 H Albumin 2.4 L 25-OH Vitamin D Total Urine Color Yellow Urine Appearance Clear Urine pH 6.0 Ur Specific [place] 1.017 Urine Protein >=1000 H Urine Glucose (UA) Normal Urine Ketones Negative Urine Occult Blood Negative Urine Nitrite Negative Ur Leukocyte Esterase Negative Urine RBC 3-4 Urine WBC 1-2 Urine Bacteria None seen 11/15/21 05:44 BUN 34 H Creatinine 3.28 H Albumin 25-OH Vitamin D Total 12.2 L Urine Color Urine Appearance Urine pH Ur Specific [place] Urine Protein Urine Glucose (UA) Urine Ketones Urine Occult Blood Urine Nitrite Ur Leukocyte Esterase Urine RBC Urine WBC Urine Bacteria Radiology Impressions Impressions - last 24 hours: Impressions Chest X-Ray 11/14/21 13:05 IMPRESSION: NO ACUTE FINDINGS. RIGHT FOOT - 3 views COMPARISON: 05/18/2021 and MRI report 09/13/2021 AP, lateral and oblique views were obtained. There is osteopenia. There is oldfracture deformity at the shaft of the second metatarsal. There is no obvious acute fracture or dislocation. There is degenerative change at the first toe. There is increasing periosteal reaction involving the shaft of the fifth metatarsal. There is destruction at the head of the fifth metatarsal which is new from the previous plain films. This is likely related to osteomyelitis. A large plantar ulcer with subcutaneous air is noted in the vicinity. A suspected ulcer is also noted at the heel. There is no obvious underlying bony destruction at the adjacent calcaneus. There is prominent soft tissue swelling over the dorsum of the foot and at the toes. There is atherosclerotic disease. IMPRESSION: PERIOSTEAL REACTION AND BONY DESTRUCTION INVOLVING THE FIFTH METATARSAL THAT IS PROBABLY OSTEOMYELITIS GIVEN THE PRESENCE OF AN ADJACENT LARGE SOFT TISSUE ULCER. SECONDS SUSPECTED ULCER AT THE HEEL. OSTEOPENIA WITH OLD POSTTRAUMATIC AND DEGENERATIVE CHANGES. Impression dictated by: Alla Phan M.D.11/14/2021 2:13 PM Dictation Location: [place] [address] Any impression(s) listed above is documentation that was entered by the reading physician into a diagnostic report(s) for Simon Lott. I have reviewedthe report(s) and am incorporating any findings in the treatment plan of this patient where applicable. A&P - Nephrology Assessment/Plan (1) High anion gap metabolic acidosis: Assessment/Problem Details: He has a metabolic acidosis likely due to the CKD. He has no evidence of lacticacidosis of ketoacidosis. (2) Hyperkalemia: Assessment/Problem Details: He has hypokalemia and due to the combination of the CKD, metabolic acidosis, potassium supplement and losartan. (3) CKD (chronic kidney disease) stage 4, GFR 15-29 ml/min: Assessment/Problem Details: He has a CKD due to the diabetic kidney disease and hypertensive nephrosclerosis. His baseline serum creatinine is 3.2 to 3.5 mg/dL. (4) Sepsis: Assessment/Problem Details: He has a sepsis likely due to the diabetic foot infection. His x-ray foot showed evidence of the osteomyelitis. Podiatry and vascular surgery has been consulted. (5) Hypertensive chronic kidney disease with stage 1 through stage 4 chronic kidney disease, or unspecified chronic kidney disease: Assessment/Problem Details: His blood pressure is high and he appears to be hypervolemic. (6) Type 2 diabetes mellitus with diabetic chronic kidney disease: Assessment/Problem Details: He has insulin-dependent type 2 diabetes mellitus currently using insulin Levemir at home. (7) Anemia: Assessment/Problem Details: He has a anemia likely due to the chronic infection and CKD.. Differential diagnoses are iron deficiency of B12 or folate deficiency or paraproteinemia. Plan * Start Lasix 40 mg IV twice daily * Will give sodium bicarbonate 50 mEq IV x1 dose and start oral sodium bicarbonate 650 mg mg p.o. 3 times daily * Continue empiric antibiotic adjust as needed based on culture sensitivity. Pharmacy to dose medication. * Decrease gabapentin to 600 mg daily and Cymbalta 60 mg daily due to the decreased GFR. Consider to stop the Cymbalta and start Zoloft which is better tolerated and advancing the patient. * Continue insulin and adjust the dose as needed keep the blood sugar between 100 to 151/dL. * Continue to hold home dose of the losartan and potassium chloride. * Will add amlodipine if needed * Check renal function daily and monitor input output. * Thanks for consult. We will continue follow with you. Please feel free to call us with any question. Documented By: Olga Lidia Martin MD 11/15/21 1144 Signed By: <Electronically signed by Olga Lidia Martin MD> 11/15/21 0168 [facility] Work Phone: 1(354) 810-951508-11-2022 Consult note Author Master Mauricio [facility] November 15, 2021 3:14pm Note Date/Time November 15, 2021 9: 02am [facility] [address] [place] [address] Vascular Surgery Consult Note Signed Patient: Simon Lott MR#: [id number] : 1950 Acct:[id number] Age/Sex: 71 / M Adm Date: 2 Loc: Room: [address] [place] [address] Type: ADM IN Attending Dr: Deo Bernabe DO Copies to: DO Jailene Mays APRN Matthew T Langenberg, MD Shawn J Warner, DO~ HPI Consult HPI History of present illness: Mr. Lott is a 71-year-old -[place] male with past medical history to include insulin-dependent diabetes, CKD, A. fib on Plavix, hypertension, known peripheral vascular disease, and hepatitis C presenting through the emergency department yesterday with complaints of fever, body aches, and chills. This patient resides at [facility]. Mr. Lott is a well-known patient to our office. He has struggled to heal the chronic ulceration on the right foot for couple of years now. He tells me that he has been following with the podiatry specialist at his long-term care facility with periodic debridements and he tells me this was just cleaned up last week. Thepatient tells me the right foot causes him minimal pain as he has been nonweightbearing and does not walk on it. He states minimal pain of the right foot. He continues to report chills this morning and tells me he feels very sick . He denies any nausea, vomiting, or abdominal pain. He denies any chest pain or shortness of breath. He denies any additional recent illness. He has been getting Vanco and Zosyn here in the hospital. Blood cultures are pending. Vascular surgery has been consulted for further evaluation of right foot wounds. cc:: CC: Deo Bernabe, DO Data of Consult Consult date: 11/15/2021 Requesting Physician: Deo Bernabe, DO Review of Systems Review of Systems All other systems reviewed & are negative unless noted below or in HPI PMFSH Vaccinated for COVID-19?: Yes Medical History Alcohol abuse Amputated toe of left foot ALL 5 TOES Anemia BPH (benign prostatic hyperplasia) Cellulitis of left foot Chronic foot ulcer Diabetes Foot drop Hepatitis C HTN (hypertension) Hyperlipidemia Major depressive disorder Neuropathy PVD (peripheral vascular disease) Ruptured spleen Stroke Surgical History History of appendectomy History of transmetatarsal amputation of left foot Family History Mother Diabetes Father Diabetes Sister Diabetes Brother Diabetes Social History Smoking Status: Current some day smoker Tobacco Type: cigarettes Substance Use Type: None Substance Abuse Comment: NONE X 7 MONTHS Allergies & Active Medications Medications and Allergies Allergies codeine Allergy (Verified 05/18/21 09:55) Unknown Reaction lisinopril Allergy (Verified 05/18/21 09:55) Swelling of Lip/Tongue/Throat Exam Physical Exam Vital Signs: Temp Pulse Resp BP Pulse Ox O2 Del Method 98.3 F 116 H 22 167/92 H 98 Room Air 11/15/21 04:00 11/15/21 04:00 11/15/21 04:00 11/15/21 04:00 11/15/21 04:00 11/15/21 04:00 Narrative: 71-year-old -[place] male, no acute distress. He is resting comfortablyin the bed this morning with his head under his covers. He does not uncover hishead during her entire visit this morning, when I try to uncover him, he pulls it back up over his head. He is alert and oriented x3. His abdomen is soft, nontender, nondistended. His heart shows regular rate and rhythm, no murmur. His lung sounds are clear throughout bilaterally. Left lower extremity has a well-healed previous transmetatarsal amputation. Right lower extremity is warm and edematous when compared bilaterally. The left foot skin is quite thickened from about mid calf distally. When dressing was removed, I do notice slightly foul odor present. There is no purulent drainage. He has wounds at the base ofthe fifth metatarsal as well as covering the heel, the wounds both appear to have fairly clean base present as they have been recently debrided. The foot ischronically swollen with hyperkeratotic skin throughout. I am unable to palpatepulses however I am able to locate PT signal with hand-held Doppler. Results Labs CBC & Chem 7: 11/15/21 05:44 11/15/21 05:44 Labs: Laboratory Results - last 24 hr 11/14/21 11/14/21 11/14/21 13:00 13:00 13:00 Corrected WBC 19.8 H Uncorrected WBC Count 19.8 H RBC 3.18 L Hgb 8.7 L Hct 27.9 L MCV 87.6 MCH 27.4 L MCHC 31.3 L RDW 18.3 H Plt Count 290 MPV 10.0 Neut % (Auto) 97.0 Lymph % (Auto) 3.0 [place] % (Auto) 4.0 Eos % (Auto) N/A Baso % (Auto) N/A Neut # (Auto) N/A Lymph # (Auto) N/A [place] # (Auto) N/A Eos # (Auto) N/A Baso # (Auto) N/A Nucleated RBC % (auto) 0.1 Band Neutrophils % Lymphocytes % Monocytes % Metamyelocytes % Segmented Neutrophils Platelet Estimate Normal Large Platelets Plt Morphology Comment Normal RBC Morphology N/A Polychromasia Hypochromasia Slight Poikilocytosis Moderate Anisocytosis Moderate Target Cells Slight Ovalocytes Slight Schistocytes PT 13.4 H INR 1.2 APTT 34.5 Sample Site VBG pH VBG pCO2 VBG pO2 VBG HCO3 VBG Total CO2 VBG O2 Saturation VBG O2 Content VBG Base Excess FiO2 Critical Value PHA Creatinine Clear 26.63 Sodium 134 L Potassium 6.1 H* Chloride 107 Carbon Dioxide 17.9 L BUN 34 H Creatinine 3.43 H Est GFR ( Amer) 21 Est GFR (Non-Af Amer) 18 Glucose 162 H POC Glucose POC Glucose Comment Estimat Average Glucose Hemoglobin A1c Lactic Acid Calcium 8.3 Total Bilirubin 0.6 AST 30 ALT 18 Alkaline Phosphatase 143 H Total Protein 8.2 H Albumin 2.4 L Globulin 5.8 Albumin/Globulin Ratio 0.4 25-OH Vitamin D Total Urine Color Urine Appearance Urine pH Ur Specific [place] Urine Protein Urine Glucose (UA) Urine Ketones Urine Occult Blood Urine Nitrite Urine Bilirubin Urine Urobilinogen Ur Leukocyte Esterase Urine RBC Urine WBC Ur Squamous Epith Cells Urine Bacteria Hyaline Casts COVID-19 PCR Interp COVID-19 Clin Com SARS Antigen (LFIA) 11/14/21 11/14/21 11/14/21 13:00 13:29 13:30 Corrected WBC Uncorrected WBC Count RBC Hgb Hct MCV MCH MCHC RDW Plt Count MPV Neut % (Auto) Lymph % (Auto) [place] % (Auto) Eos % (Auto) Baso % (Auto) Neut # (Auto) Lymph # (Auto) [place] # (Auto) Eos # (Auto) Baso # (Auto) Nucleated RBC % (auto) Band Neutrophils % Lymphocytes % Monocytes % Metamyelocytes % Segmented Neutrophils Platelet Estimate Large Platelets Plt Morphology Comment RBC Morphology Polychromasia Hypochromasia Poikilocytosis Anisocytosis Target Cells Ovalocytes Schistocytes PT INR APTT Sample Site Venous VBG pH 7.28 L VBG pCO2 39.3 VBG pO2 43.7 VBG HCO3 18.2 L VBG Total CO2 19.4 L VBG O2 Saturation 75.2 VBG O2 Content 4.7 L VBG Base Excess -7.9 L FiO2 21 Critical Value PHA Creatinine Clear Sodium Potassium Chloride Carbon Dioxide BUN Creatinine Est GFR ( Amer) Est GFR (Non-Af Amer) Glucose POC Glucose POC Glucose Comment Estimat Average Glucose Hemoglobin A1c Lactic Acid 1.9 Calcium Total Bilirubin AST ALT Alkaline Phosphatase Total Protein Albumin Globulin Albumin/Globulin Ratio 25-OH Vitamin D Total Urine Color Urine Appearance Urine pH Ur Specific [place] Urine Protein Urine Glucose (UA) Urine Ketones Urine Occult Blood Urine Nitrite Urine Bilirubin Urine Urobilinogen Ur Leukocyte Esterase Urine RBC Urine WBC Ur Squamous Epith Cells Urine Bacteria Hyaline Casts COVID-19 PCR Interp COVID-19 Clin Com SARS Antigen (LFIA) Negative 11/14/21 11/14/21 11/14/21 14:36 15:31 17:03 Corrected WBC Uncorrected WBC Count RBC Hgb Hct MCV MCH MCHC RDW Plt Count MPV Neut % (Auto) Lymph % (Auto) [place] % (Auto) Eos % (Auto) Baso % (Auto) Neut # (Auto) Lymph # (Auto) [place] # (Auto) Eos # (Auto) Baso # (Auto) Nucleated RBC % (auto) Band Neutrophils % Lymphocytes % Monocytes % Metamyelocytes % Segmented Neutrophils Platelet Estimate Large Platelets Plt Morphology Comment RBC Morphology Polychromasia Hypochromasia Poikilocytosis Anisocytosis Target Cells Ovalocytes Schistocytes PT INR APTT Sample Site VBG pH VBG pCO2 VBG pO2 VBG HCO3 VBG Total CO2 VBG O2 Saturation VBG O2 Content VBG Base Excess FiO2 Critical Value PHA Creatinine Clear Sodium Potassium Chloride Carbon Dioxide BUN Creatinine Est GFR ( Amer) Est GFR (Non-Af Amer) Glucose POC Glucose 97 POC Glucose Comment Glu2: cleaned meter Estimat Average Glucose Hemoglobin A1c Lactic Acid Calcium Total Bilirubin AST ALT Alkaline Phosphatase Total Protein Albumin Globulin Albumin/Globulin Ratio 25-OH Vitamin D Total Urine Color Yellow Urine Appearance Clear Urine pH 6.0 Ur Specific [place] 1.017 Urine Protein >=1000 H Urine Glucose (UA) Normal Urine Ketones Negative Urine Occult Blood Negative Urine Nitrite Negative Urine Bilirubin Negative Urine Urobilinogen Normal Ur Leukocyte Esterase Negative Urine RBC 3-4 Urine WBC 1-2 Ur Squamous Epith Cells 0-1 Urine Bacteria None seen Hyaline Casts 0-8 COVID-19 PCR Interp N/A COVID-19 Clin Com Positive A SARS Antigen (LFIA) 11/14/21 11/14/21 11/15/21 17:57 20:22 05:44 Corrected WBC 30.1 H Uncorrected WBC Count 30.1 H RBC 3.08 L Hgb 8.1 L Hct 26.9 L MCV 87.5 MCH 26.4 L MCHC 30.2 L RDW 18.3 H Plt Count 238 MPV 10.4 H Neut % (Auto) N/A Lymph % (Auto) N/A [place] % (Auto) N/A Eos % (Auto) N/A Baso % (Auto) N/A Neut # (Auto) N/A Lymph # (Auto) N/A [place] # (Auto) N/A Eos # (Auto) N/A Baso # (Auto) N/A Nucleated RBC % (auto) 0.1 Band Neutrophils % 27 H Lymphocytes % 7 L Monocytes % 3 Metamyelocytes % 1 H Segmented Neutrophils 62 Platelet Estimate Normal Large Platelets Slight Plt Morphology Comment N/A RBC Morphology N/A Polychromasia Slight Hypochromasia Slight Poikilocytosis Anisocytosis Moderate Target Cells Moderate Ovalocytes Schistocytes Slight PT INR APTT Sample Site VBG pH VBG pCO2 VBG pO2 VBG HCO3 VBG Total CO2 VBG O2 Saturation VBG O2 Content VBG Base Excess FiO2 Critical Value PHA Creatinine Clear 25.76 Sodium 135 L Potassium 5.6 H Chloride 108 Carbon Dioxide 17.2 L BUN 34 H Creatinine 3.51 H Est GFR ( Amer) 21 Est GFR (Non-Af Amer) 17 Glucose 108 H POC Glucose 191 POC Glucose Comment Estimat Average Glucose Hemoglobin A1c Lactic Acid Calcium 8.1 L Total Bilirubin AST ALT Alkaline Phosphatase Total Protein Albumin Globulin Albumin/Globulin Ratio 25-OH Vitamin D Total Urine Color Urine Appearance Urine pH Ur Specific [place] Urine Protein Urine Glucose (UA) Urine Ketones Urine Occult Blood Urine Nitrite Urine Bilirubin Urine Urobilinogen Ur Leukocyte Esterase Urine RBC Urine WBC Ur Squamous Epith Cells Urine Bacteria Hyaline Casts COVID-19 PCR Interp COVID-19 Clin Com SARS Antigen (LFIA) 11/15/21 11/15/21 11/15/21 05:44 05:44 07:30 Corrected WBC Uncorrected WBC Count RBC Hgb Hct MCV MCH MCHC RDW Plt Count MPV Neut % (Auto) Lymph % (Auto) [place] % (Auto) Eos % (Auto) Baso % (Auto) Neut # (Auto) Lymph # (Auto) [place] # (Auto) Eos # (Auto) Baso # (Auto) Nucleated RBC % (auto) Band Neutrophils % Lymphocytes % Monocytes % Metamyelocytes % Segmented Neutrophils Platelet Estimate Large Platelets Plt Morphology Comment RBC Morphology Polychromasia Hypochromasia Poikilocytosis Anisocytosis Target Cells Ovalocytes Schistocytes PT INR APTT Sample Site VBG pH VBG pCO2 VBG pO2 VBG HCO3 VBG Total CO2 VBG O2 Saturation VBG O2 Content VBG Base Excess FiO2 Critical Value PHA Creatinine Clear 27.57 Sodium 135 L Potassium 5.0 Chloride 111 Carbon Dioxide 17.1 L BUN 34 H Creatinine 3.28 H Est GFR ( Amer) 23 Est GFR (Non-Af Amer) 19 Glucose 122 H POC Glucose 141 POC Glucose Comment Glu2: cleaned meter Estimat Average Glucose 114 Hemoglobin A1c 5.6 Lactic Acid Calcium 7.8 L Total Bilirubin AST ALT Alkaline Phosphatase Total Protein Albumin Globulin Albumin/Globulin Ratio 25-OH Vitamin D Total 12.2 L Urine Color Urine Appearance Urine pH Ur Specific [place] Urine Protein Urine Glucose (UA) Urine Ketones Urine Occult Blood Urine Nitrite Urine Bilirubin Urine Urobilinogen Ur Leukocyte Esterase Urine RBC Urine WBC Ur Squamous Epith Cells Urine Bacteria Hyaline Casts COVID-19 PCR Interp COVID-19 Clin Com SARS Antigen (LFIA) PT 13.4 Seconds (9.0-12.9) H 11/14/21 13:00 APTT 34.5 Seconds (25.1-36.5) 11/14/21 13:00 Microbiology Microbiology: 11/14/21 13:30 Nasal SARS Antigen (LFIA) - Final A&P - Vascular (1) Sepsis: Code(s): A41.9 - Sepsis, unspecified organism Status: Acute (2) Diabetic foot ulcer: Code(s): E11.621 - Type 2 diabetes mellitus with foot ulcer; L97.509 - Non-pressure chronic ulcer of other part of unspecified foot with unspecified severity Status: Chronic (3) TOM (acute kidney injury): Code(s): N17.9 - Acute kidney failure, unspecified Status: Acute (4) CKD (chronic kidney disease) stage 3, GFR 30-59 ml/min: Code(s): N18.30 - Chronic kidney disease, stage 3 unspecified Status: Acute (5) Type 2 diabetes mellitus with diabetic chronic kidney disease: Qualifiers: Chronic kidney disease stage: unspecified stage Diabetes mellitus rat exterminator insulin use: with custodial use Qualified Code(s): E11.22 - Type 2 diabetes mellitus with diabetic chronic kidney disease; Z79.4 - medical terminologist (current) use of insulin Code(s): E11.22 - Type 2 diabetes mellitus with diabetic chronic kidney disease Status: Acute (6) Osteomyelitis of foot: Code(s): M86.9 - Osteomyelitis, unspecified Status: Acute (7) Acute hyperkalemia: Code(s): E87.5 - Hyperkalemia Status: Acute (8) PVD (peripheral vascular disease): Plan: This patient was last seen in the office by Dr. Rocha in September for the nonhealing wounds of the right foot. He has continued to decline and has failedto heal these wounds. He is at extreme risk for limb loss. He is not ready to accept this yet. He is now in the hospital with sepsis with pending blood cultures. When we saw the patient at the end of September we discussed the fact thathe does not have any options for revascularization. He was talked to about options to include either continuing with the wound care or proceeding with amputation. The patient tells me today he is not interested in the amputation and would like a second opinion from our other vascular surgeon and [facility]. He did have previous GILDA testing in July which was unreliable due to noncompressibility, I do not believe repeating this at this time will show any change. By physical examination today he is at extreme risk for limb loss. He is not ready to accept this yet. I did agree to his request for second opinion by Dr. Mauricio and I did tell him that we will be back around early this afternoon for reevaluation and discuss options at that time. Patient agrees and denies any questions at this time. This is Dr. Mauricio dictating. I did see this patient on rounds today with our nurse practitioner. The dressing was taken down and the wound was thoroughly evaluated. This problem does not look too bad. It looks fairly superficial. I doubt this is the source of his systemic problems. This patientcertainly does not need a guillotine amputation today for source control. He may require BKA or AKA in the future however this is not needed on an urgent basis at this time. Furthermore, the patient adamantly refuses any amputation whatsoever. Code(s): I73.9 - Peripheral vascular disease, unspecified Status: Acute Documented By: Jailene Castorena APRN 11/15/21 0 858 Signed By: <Electronically signed by TYSON Castorena> 11/15/21 0912 <Electronically signed by Master Mauricio MD> 11/15/21 1514 [facility] Work Phone: [phone]) 404-685808-11-2022 Progress note Author Deo Bernabe [facility] November 15, 2021 2:59pm Note Date/Time November 15, 2021 2: 59pm [facility] [address] [place] [address] Hospitalist Progress Note Signed Patient: Simon Lott MR#: [id number] : 1950 Acct:[id number] Age/Sex: 71 / M Adm Date: 2 Loc: Room: [address] [place] [address] Type: ADM IN Attending Dr: Deo Bernabe DO Copies to: ~ Date of Service: 11/15/2021 Subjective Subjective Narrative: Patient interviewed and examined at bedside. He denies any issues and states he has no pain. per RN he was up and ambulated to the bathroom with assist mostly from sitting to standing, using the walker with assist for pivoting. Exam Physical Exam Vital Signs: Temp Pulse Resp BP Pulse Ox O2 Del Method 100.4 F H 127 H 20 197/100 H 100 Room Air 11/15/21 12:00 11/15/21 12:00 11/15/21 12:00 11/15/21 12:00 11/15/21 12:00 11/15/21 12:50 Narrative: General: awake alert, no acute distress HEENT: head atraumatic, normocephalic, moist mucous membranes, normal nose and ears, no throat lesions, normal conjunctiva Neck: supple no masses, no lymphadenopathy CVS: regular rate and rhythm, no murmurs or gallops Respiratory: clear to auscultation bilaterally, no wheezing or crackles, symmetric expansion GI: soft, nondistended, nontender, positive bowel sounds with no organomegaly Extremity: moves all extremities, no restrictions of movements, no calf tenderness, RLE edema, right foot is wrapped. Dressing CDI. Neuro: AOx3, CN II-VII intact. Moves all extremities in all planes of motion. Skin: dry, intact no rashes or lesions Objective Lab Results CBC & Chem 7: 11/15/21 05:44 11/15/21 05:44 Microbiology Results Microbiology 11/14/21 13:23 Blood - Right Hand Blood Culture - Preliminary No Growth 1 Day 11/14/21 13:00 Blood - Right Antecubital Blood Culture - Preliminary No Growth 1 Day 11/14/21 14:36 Clean Void Midstream Urine Culture - Preliminary No Growth 1 Day 11/14/21 13:30 Nasal SARS Antigen (LFIA) - Final Meds Allergies and Active Meds Allergies codeine Allergy (Verified 05/18/21 09:55) Unknown Reaction lisinopril Allergy (Verified 05/18/21 09:55) Swelling of Lip/Tongue/Throat Active Meds: Active Medications Generic Name Dose Route Start Last Admin Trade Name Freq PRN Reason Stop Dose Admin Acarbose 100 mg 11/15/21 08:00 11/15/21 12:53 Acarbose 50 Mg Tablet PO 11/15/22 07:59 100 mg TID.WITH.MEALS JULIANN Administration Acetaminophen 650 mg 11/14/21 17:42 11/14/21 22:23 Acetaminophen 325 Mg Tablet PO 11/14/22 17:41 650 mg Q4H PRN Administration Pain Amitriptyline HCl 10 mg 11/14/21 22:00 11/14/21 22:22 Amitriptyline 10 Mg Tablet PO 11/14/22 21:59 10 mg HS JULIANN Administration Ammonium Lactate 1 applic 11/14/21 22:00 11/15/21 05:57 Ammonium Lactate 12% Lot 226 Gm Bottle TOPICAL 11/14/22 21:59 1 applic QSHIFT JULIANN Administration Ascorbic Acid 500 mg 11/15/21 09:00 11/15/21 10:27 Ascorbic Acid 500 Mg Tablet PO 11/15/22 08:59 500 mg DAILY JULIANN Administration Atorvastatin Calcium 10 mg 11/14/21 22:00 11/14/21 22:22 Atorvastatin 10 Mg Tablet PO 11/14/22 21:59 10 mg HS JULIANN Administration Clopidogrel Bisulfate 75 mg 11/15/21 09:00 11/15/21 10:27 Clopidogrel Bisulfate 75 Mg Tablet PO 11/15/22 08:59 75 mg DAILY JULIANN Administration Dextrose 0 gm 11/14/21 17:38 Dextrose 50% In Water 25 Gm/50 Ml Syringe IV-PUSH 11/14/22 17:37 PRN PRN Hypoglycemia Duloxetine HCl 60 mg 11/16/21 09:00 Duloxetine 60 Mg Capsule.Dr IYER 11/16/22 08:59 DAILY [facility] Ferrous Sulfate 324 mg 11/16/21 09:00 Ferrous Sulfate 324 Mg Tablet.Dr IYER 11/16/22 08:59 MoWeFr@0900 JULIANN Folic Acid 1 mg 11/15/21 09:00 11/15/21 10:27 Folic Acid 1 Mg Tablet PO 11/15/22 08:59 1 mg DAILY JULIANN Administration Furosemide 40 mg 11/15/21 16:00 Furosemide 40 Mg/4 Ml Vial IV-PUSH 11/15/22 15:59 BID@0800,1600 [facility] Gabapentin 600 mg 11/15/21 21:00 Gabapentin 600 Mg Tablet PO 11/15/22 20:59 QPM [facility] Glucose 0 gm 11/14/21 17:38 Dextrose 40% Gel 15 Gm Tube PO 11/14/22 17:37 PRN PRN Hypoglycemia Heparin Sodium (Porcine) 5,000 unit 11/14/21 21:00 11/15/21 10:27 Heparin 5,000 Unit/Ml Vial SUBCUT 11/14/22 20:59 5,000 unit Q12HR JULIANN Administration Hydralazine HCl 10 mg 11/14/21 21:50 11/15/21 05:16 Hydralazine 20 Mg/Ml Vial IV-PUSH 11/14/22 21:49 10 mg Q4H PRN Administration Hypertension Meropenem 1 gm in 100 mls @ 200 mls/hr 11/15/21 06:00 11/15/21 05:15 Merrem IV 200 mls/hr Q12H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 disease, PAD, diabetic foot ulcer, CVA, hepatitis C and nephrolithiasis was transferred from the [facility] due to the fever. On evaluation emergency room patient was hyperkalemia serum potassium 6.1 mg/L and metabolic acidosis with serum bicarbonate 17 mmol/L. Patient was also noted to have a leukocytosis and tachycardia. He had a foot x-ray in the emergency room which showed finding concerning for osteomyelitis of the fifth metatarsal bone. Patient was given IVfluid and was started on broad-spectrum antibiotics for diabetic foot infection and sepsis. Patient was given sodium bicarbonate, insulin with D50 and Lokelma in the emergency room for hyperkalemia. On review record it appears that patient has a longstanding CKD with baseline creatinine around 3.2?3.5 mg/dL. His renal function has been declining due to the progression of his CKD. He used to follow with Dr. Taylor for CKD care but missed the last appointment. Nephrology is consulted for his CKD, hyperkalemia and metabolic acidosis management. Patient was seen examined bedside reported that he had a COVID. Hedenies any shortness of breath but reported to have a increased leg swelling. Review of Systems Review of Systems All other systems reviewed & are negative unless noted below or in HPI Review of systems: Cardiovascular: denies any chest pain, palpitation Pulmonary: denies any cough, hemoptysis Gastrointestinal: denies any nausea, vomiting, diarrhea Neurological :denies any headache, numbness, weakness Endocrine: denies any polyuria, polydipsia Dermatological: denies any itching or rash PMFSH Vaccinated for COVID-19?: Yes Medical History Alcohol abuse Amputated toe of left foot ALL 5 TOES Anemia BPH (benign prostatic hyperplasia) Cellulitis of left foot Chronic foot ulcer Diabetes Foot drop Hepatitis C HTN (hypertension) Hyperlipidemia Major depressive disorder Neuropathy PVD (peripheral vascular disease) Ruptured spleen Stroke Surgical History History of appendectomy History of transmetatarsal amputation of left foot Family History Mother Diabetes Father Diabetes Sister Diabetes Brother Diabetes Social History Smoking Status: Current some day smoker Tobacco Type: cigarettes Substance Use Type: None Substance Abuse Comment: NONE X 7 MONTHS Meds Medications & Allergies Allergies codeine Allergy (Verified 05/18/21 09:55) Unknown Reaction lisinopril Allergy (Verified 05/18/21 09:55) Swelling of Lip/Tongue/Throat Home Medications tamsulosin 0.4 mg capsule (Flomax) 0.4 mg PO BID 12/25/16 [History Confirmed 11/14/21] gabapentin 800 mg tablet (Neurontin) 800 mg PO TID 01/26/20 [History Confirmed 11/14/21] acetaminophen 325 mg tablet (Tylenol) 650 mg PO Q4H PRN Pain 03/21/20 [History Confirmed 11/14/21] alpha lipoic acid 300 mg capsule 200 mg PO DAILY 03/21/20 [History Confirmed 11/14/21] duloxetine 20 mg capsule,delayed release 60 mg PO BID 03/21/20 [History Confirmed 11/14/21] insulin aspart U-100 100 unit/mL subcutaneous solution (Novolog U-100 Insulin aspart) See Protocol subcut ACHS 03/21/20 [History Confirmed 11/14/21] amitriptyline 10 mg tablet 10 mg PO HS 05/25/20 [History Confirmed 11/14/21] ammonium lactate 12 % topical cream 1 applic topical QSHIFT 05/25/20 [History Confirmed 11/14/21] atorvastatin 10 mg tablet 10 mg PO HS 05/25/20 [History Confirmed 11/14/21] clopidogrel 75 mg tablet 75 mg PO DAILY 05/25/20 [History Confirmed 11/14/21] acarbose 100 mg tablet 100 mg PO TID 05/18/21 [History Confirmed 11/14/21] ascorbic acid (vitamin C) 500 mg tablet 500 mg PO DAILY 05/18/21 [History Confirmed 11/14/21] ferrous sulfate 324 mg (65 mg iron) tablet,delayed release 325 mg PO QMWF 05/18/21 [History Confirmed 11/14/21] insulin detemir U-100 100 unit/mL (3 mL) subcutaneous pen (Levemir FlexTouch U- 100 Insulin) 42 unit subcut DAILY 05/18/21 [History Confirmed 11/14/21] losartan 25 mg tablet 25 mg PO DAILY 05/18/21 [History Confirmed 11/14/21] melatonin 5 mg tablet 5 mg PO HS PRN Insomnia 05/18/21 [History Confirmed 11/14/21] potassium chloride 20 mEq tablet,extended release 20 meq PO DAILY 05/18/21 [History Confirmed 11/14/21] folic acid 1 mg tablet 1 mg PO DAILY 11/14/21 [History Confirmed 11/14/21] loteprednol etabonate 0.5 % eye drops,suspension 1 drp Eye-Left QID 11/14/21 [History Confirmed 11/14/21] sodium hypochlorite 0.25 % solution (Dakin's Solution) 1 irrig topical BID 11/14/21 [History Confirmed 11/14/21] Active Medications: Active Medications Acarbose (Acarbose 50 Mg Tablet) 100 mg PO TID.WITH.MEALS JULIANN Stop: 11/15/22 07:59 Last Admin: 11/15/21 10:27 Dose: 100 mg Acetaminophen (Acetaminophen 325 Mg Tablet) 650 mg PO Q4H PRN PRN Reason: Pain Stop: 11/14/22 17:41 Last Admin: 11/14/21 22:23 Dose: 650 mg Amitriptyline HCl (Amitriptyline 10 Mg Tablet) 10 mg PO HS JULIANN Stop: 11/14/22 21:59 Last Admin: 11/14/21 22:22 Dose: 10 mg Ammonium Lactate (Ammonium Lactate 12% Lot 226 Gm Bottle) 1 applic TOPICAL QSHIFT JULIANN Stop: 11/14/22 21:59 Last Admin: 11/15/21 05:57 Dose: 1 applic Ascorbic Acid (Ascorbic Acid 500 Mg Tablet) 500 mg PO DAILY JULIANN Stop: 11/15/22 08:59 Last Admin: 11/15/21 10:27 Dose: 500 mg Atorvastatin Calcium (Atorvastatin 10 Mg Tablet) 10 mg PO HS [facility] Stop: 11/14/22 21:59 Last Admin: 11/14/21 22:22 Dose: 10 mg Clopidogrel Bisulfate (Clopidogrel Bisulfate 75 Mg Tablet) 75 mg PO DAILY JULIANN Stop: 11/15/22 08:59 Last Admin: 11/15/21 10:27 Dose: 75 mg Dextrose (Dextrose 50% In Water 25 Gm/50 Ml Syringe) 0 gm IV-PUSH PRN PRN PRN Reason: Hypoglycemia Stop: 11/14/22 17:37 Duloxetine HCl (Duloxetine 60 Mg Capsule.) 60 mg PO DAILY [facility] Stop: 11/16/22 08:59 Ferrous Sulfate (Ferrous Sulfate 324 Mg Tablet.) 324 mg PO MoWeFr@0900 [facility] Stop: 11/16/22 08:59 Folic Acid (Folic Acid 1 Mg Tablet) 1 mg PO DAILY JULIANN Stop: 11/15/22 08:59 Last Admin: 11/15/21 10:27 Dose: 1 mg Gabapentin (Gabapentin 600 Mg Tablet) 600 mg PO QPM [facility] Stop: 11/15/22 20:59 Glucose (Dextrose 40% Gel 15 Gm Tube) 0 gm PO PRN PRN PRN Reason: Hypoglycemia Stop: 11/14/22 17:37 Heparin Sodium (Porcine) (Heparin 5,000 Unit/Ml Vial) 5,000 unit SUBCUT Q12HR JULIANN Stop: 11/14/22 20:59 Last Admin: 08/11/22 10:27 Dose: 5,000 unit Hydralazine HCl (Hydralazine 20 Mg/Ml Vial) 10 mg IV-PUSH Q4H PRN PRN Reason: Hypertension Stop: 11/14/22 21:49 Last Admin: 11/15/21 05:16 Dose: 10 mg Sodium Chloride (0.9% Sodium Chloride 1,000 Ml) 1,000 mls @ 100 mls/hr IV .[id number] Stop: 11/14/22 17:59 Last Admin: 11/15/21 05:16 Dose: 100 mls/hr Meropenem (Merrem) 1 gm in 100 mls @ 200 mls/hr IV Q12H [facility] Last Admin: 11/15/21 05:15 Dose: 200 mls/hr Insulin Aspart (Insulin Aspart 300 Units/3 Ml Insuln.Pen) 0 units SUBCUT TID.WM.HS [facility]; Protocol Stop: 11/14/22 21:59 Last Admin: 11/15/21 08:56 Dose: Not Given Insulin Detemir (Insulin Detemir 300 Units/3 Ml Insuln.Pen) 42 units SUBCUT DAILY [facility] Stop: 11/15/22 08:59 Last Admin: 11/15/21 10:30 Dose: 42 units Loteprednol Etabonate (Loteprednol 0.5% Op Susp 100 Drops/5 Ml Bottle) 1 drops EYE-LEFT QID [facility] Stop: 11/14/22 17:59 Last Admin: 11/15/21 10:29 Dose: 1 drops Melatonin (Melatonin 5 Mg Tablet) 5 mg PO HS PRN PRN Reason: Insomnia Stop: 11/14/22 17:41 Last Admin: 11/14/21 22:22 Dose: 5 mg Metoprolol Tartrate (Metoprolol Tartrate 5 Mg/5 Ml Vial) 5 mg IV-PUSH Q4H PRN PRN Reason: Blood Pressure Stop: 11/14/22 21:49 Saccharomyces Boulardii (Saccharomyces Boulardii 250 Mg Capsule) 250 mg PO BID.WITH.MEALS JULIANN Stop: 11/15/22 07:59 Last Admin: 11/15/21 10:27 Dose: 250 mg Sodium Chloride (Sodium Chloride 0.9 % 10 Ml Syringe) 0 ml IV-PUSH PRN PRN PRN Reason: Flush Stop: 11/14/22 12:53 Sodium Chloride (Sodium Chloride 0.9 % 10 Ml Syringe) 0 ml IV-PUSH QSHIFT [facility] Stop: 11/14/22 21:59 Last Admin: 11/15/21 05:58 Dose: 10 ml Sodium Hypochlorite (Sodium Hypochlorite 0.25% 473 Ml Solution) 0 ml TOPICAL BID [facility] Stop: 11/14/22 20:59 Last Admin: 11/15/21 10:43 Dose: Not Given Tamsulosin HCl (Tamsulosin 0.4 Mg Cap.Er.24h) 0.4 mg PO BID [facility] Stop: 11/14/22 20:59 Last Admin: 11/15/21 10:27 Dose: 0.4 mg Vancomycin HCl (Vancomycin - Pharmacy Dosing 1 Each Miscell) 1 each IV PRN PRN; Protocol PRN Reason: ZZ.Pharmacy Consult Exam Physical Exam Vital Signs: Temp Pulse Resp BP Pulse Ox O2 Del Method O2 Flow Rate 97.6 F 66 20 106/62 93 L Nasal Cannula 4 11/15/21 11:42 11/15/21 11:42 11/15/21 11:42 11/15/21 11:42 11/15/21 11:42 11/15/21 11:42 11/15/21 11:42 Narrative: General: Appears comfortable and not in distress Heart: S1-S2, no rub Lung: Bilateral air entry, no wheezing or crackles Abdomen: Soft, positive bowel sounds Extremities: 2+ edema, no cyanosis Head: Atraumatic, normocephalic Ear: No gross hearing Deficit or external ear redness Eyes: No pallor or redness Neck: No JVD or visible mass Skin: No rashes or bruises ESTATE CONSERVATOR: Awake,Alert, following simple command Musculoskeletal: No joint swelling or limitation of movement Psychiatric: Cooperative, normal mood and affect Results Labs CBC & Chem 7: 11/15/21 05:44 11/15/21 05:44 Labs: 11/14/21 11/14/21 11/14/21 13:00 14:36 17:57 BUN 34 H 34 H Creatinine 3.43 H 3.51 H Albumin 2.4 L 25-OH Vitamin D Total Urine Color Yellow Urine Appearance Clear Urine pH 6.0 Ur Specific [place] 1.017 Urine Protein >=1000 H Urine Glucose (UA) Normal Urine Ketones Negative Urine Occult Blood Negative Urine Nitrite Negative Ur Leukocyte Esterase Negative Urine RBC 3-4 Urine WBC 1-2 Urine Bacteria None seen 11/15/21 05:44 BUN 34 H Creatinine 3.28 H Albumin 25-OH Vitamin D Total 12.2 L Urine Color Urine Appearance Urine pH Ur Specific [place] Urine Protein Urine Glucose (UA) Urine Ketones Urine Occult Blood Urine Nitrite Ur Leukocyte Esterase Urine RBC Urine WBC Urine Bacteria Radiology Impressions Impressions - last 24 hours: Impressions Chest X-Ray 11/14/21 13:05 IMPRESSION: NO ACUTE FINDINGS. RIGHT FOOT - 3 views COMPARISON: 05/18/2021 and MRI report 09/13/2021 AP, lateral and oblique views were obtained. There is osteopenia. There is oldfracture deformity at the shaft of the second metatarsal. There is no obvious acute fracture or dislocation. There is degenerative change at the first toe. There is increasing periosteal reaction involving the shaft of the fifth metatarsal. There is destruction at the head of the fifth metatarsal which is new from the previous plain films. This is likely related to osteomyelitis. A large plantar ulcer with subcutaneous air is noted in the vicinity. A suspected ulcer is also noted at the heel. There is no obvious underlying bony destruction at the adjacent calcaneus. There is prominent soft tissue swelling over the dorsum of the foot and at the toes. There is atherosclerotic disease. IMPRESSION: PERIOSTEAL REACTION AND BONY DESTRUCTION INVOLVING THE FIFTH METATARSAL THAT IS PROBABLY OSTEOMYELITIS GIVEN THE PRESENCE OF AN ADJACENT LARGE SOFT TISSUE ULCER. SECONDS SUSPECTED ULCER AT THE HEEL. OSTEOPENIA WITH OLD POSTTRAUMATIC AND DEGENERATIVE CHANGES. Impression dictated by: Alla Phan M.D.11/14/2021 2:13 PM Dictation Location: [place] [address] Any impression(s) listed above is documentation that was entered by the reading physician into a diagnostic report(s) for Simon Lott. I have reviewedthe report(s) and am incorporating any findings in the treatment plan of this patient where applicable. A&P - Nephrology Assessment/Plan (1) High anion gap metabolic acidosis: Assessment/Problem Details: He has a metabolic acidosis likely due to the CKD. He has no evidence of lacticacidosis of ketoacidosis. (2) Hyperkalemia: Assessment/Problem Details: He has hypokalemia and due to the combination of the CKD, metabolic acidosis, potassium supplement and losartan. (3) CKD (chronic kidney disease) stage 4, GFR 15-29 ml/min: Assessment/Problem Details: He has a CKD due to the diabetic kidney disease and hypertensive nephrosclerosis. His baseline serum creatinine is 3.2 to 3.5 mg/dL. (4) Sepsis: Assessment/Problem Details: He has a sepsis likely due to the diabetic foot infection. His x-ray foot showed evidence of the osteomyelitis. Podiatry and vascular surgery has been consulted. (5) Hypertensive chronic kidney disease with stage 1 through stage 4 chronic kidney disease, or unspecified chronic kidney disease: Assessment/Problem Details: His blood pressure is high and he appears to be hypervolemic. (6) Type 2 diabetes mellitus with diabetic chronic kidney disease: Assessment/Problem Details: He has insulin-dependent type 2 diabetes mellitus currently using insulin Levemir at home. (7) Anemia: Assessment/Problem Details: He has a anemia likely due to the chronic infection and CKD.. Differential diagnoses are iron deficiency of B12 or folate deficiency or paraproteinemia. Plan * Start Lasix 40 mg IV twice daily * Will give sodium bicarbonate 50 mEq IV x1 dose and start oral sodium bicarbonate 650 mg mg p.o. 3 times daily * Continue empiric antibiotic adjust as needed based on culture sensitivity. Pharmacy to dose medication. * Decrease gabapentin to 600 mg daily and Cymbalta 60 mg daily due to the decreased GFR. Consider to stop the Cymbalta and start Zoloft which is better tolerated and advancing the patient. * Continue insulin and adjust the dose as needed keep the blood sugar between 100 to 151/dL. * Continue to hold home dose of the losartan and potassium chloride. * Will add amlodipine if needed * Check renal function daily and monitor input output. * Thanks for consult. We will continue follow with you. Please feel free to call us with any question. Documented By: Olga Lidia Martin MD 11/15/21 3140 Signed By: <Electronically signed by Olga Lidia Martin MD> 11/15/21 [id number] [facility] Work Phone: Consult note Author Bhakti Ochoa [facility] November 15, 2021 5:10pm Note Date/Time November 15, 2021 5: 10pm [facility] [address] [place] [address] Podiatry Consult Note Signed Patient: Simon Lott MR#: [id number] : 1950 Acct:[id number] Age/Sex: 71 / M Adm Date: 2 Loc: 4 Room: 6F6023-2 Type: ADM IN Attending Dr: Deo Bernabe DO Copies to: DO Bhakti Mays DPM Shawn J Warner, DO~ HPI Data of Consult Consult Date: 11/15/21 Requesting Physician: Deo Bernabe DO Primary Care Provider: Maye Murray DO Consult Narrative Reason for consult: fever, malaise History of present illness: Mr. Lott is a 71 year old male known to me from private office. Patient has history of diabetes mellitus with peripheral neuropathy as well as chronic kidney disease and peripheral vascular disease. Patient has been a resident at [facility] for several months. Last visit into my private office was middle of August during which time we had been treating to plantar foot ulcerations right. Patient was not showing signs of improvement so my last treatment plan included vascular consult status post PVRs which were inconclusive due to noncompressibility. Also was trying to refer the patient tot wound care center for hyperbaric oxygen therapy. Patient had responded to previous wound VAC that was utilized on the plantar/posterior heel ulcer. Sincein the care facility they were unable to use the wound VAC due to the thickened slough skin surrounding the ulceration which prevented the drape from adhering. The care facility had a whirlpool that was not in service therefore we were not able to debride the surrounding skin for use of the wound VAC. Patient seen at bedside not feeling well fever and general malaise. Told me that he did test positive for COVID. When asked about his vascular visit he stated that when he had seen the vascular doctor in September he was told that he had no options for revascularizing the right leg and foot and the recommendation was below the kneeamputation right. Patient is very adamant that he does not want to pursue this course. PMFSH Vaccinated for COVID-19?: Yes Medical History Alcohol abuse Amputated toe of left foot ALL 5 TOES Anemia BPH (benign prostatic hyperplasia) Cellulitis of left foot Chronic foot ulcer Diabetes Foot drop Hepatitis C HTN (hypertension) Hyperlipidemia Major depressive disorder Neuropathy PVD (peripheral vascular disease) Ruptured spleen Stroke Surgical History History of appendectomy History of transmetatarsal amputation of left foot Family History Mother Diabetes Father Diabetes Sister Diabetes Brother Diabetes Social History Smoking Status: Current some day smoker Tobacco Type: cigarettes Substance Use Type: None Substance Abuse Comment: NONE X 7 MONTHS Meds Medications and Allergies Allergies codeine Allergy (Verified 05/18/21 09:55) Unknown Reaction lisinopril Allergy (Verified 05/18/21 09:55) Swelling of Lip/Tongue/Throat Home Medications tamsulosin 0.4 mg capsule (Flomax) 0.4 mg PO BID 12/25/16 [History Confirmed 11/14/21] gabapentin 800 mg tablet (Neurontin) 800 mg PO TID 01/26/20 [History Confirmed 11/14/21] acetaminophen 325 mg tablet (Tylenol) 650 mg PO Q4H PRN Pain 03/21/20 [History Confirmed 11/14/21] alpha lipoic acid 300 mg capsule 200 mg PO DAILY 03/21/20 [History Confirmed 11/14/21] duloxetine 20 mg capsule,delayed release 60 mg PO BID 03/21/20 [History Confirmed 11/14/21] insulin aspart U-100 100 unit/mL subcutaneous solution (Novolog U-100 Insulin aspart) See Protocol subcut ACHS 03/21/20 [History Confirmed 11/14/21] amitriptyline 10 mg tablet 10 mg PO HS 05/25/20 [History Confirmed 11/14/21] ammonium lactate 12 % topical cream 1 applic topical QSHIFT 05/25/20 [History Confirmed 11/14/21] atorvastatin 10 mg tablet 10 mg PO HS 05/25/20 [History Confirmed 11/14/21] clopidogrel 75 mg tablet 75 mg PO DAILY 05/25/20 [History Confirmed 11/14/21] acarbose 100 mg tablet 100 mg PO TID 05/18/21 [History Confirmed 11/14/21] ascorbic acid (vitamin C) 500 mg tablet 500 mg PO DAILY 05/18/21 [History Confirmed 11/14/21] ferrous sulfate 324 mg (65 mg iron) tablet,delayed release 325 mg PO QMWF 05/18/21 [History Confirmed 11/14/21] insulin detemir U-100 100 unit/mL (3 mL) subcutaneous pen (Levemir FlexTouch U- 100 Insulin) 42 unit subcut DAILY 05/18/21 [History Confirmed 11/14/21] losartan 25 mg tablet 25 mg PO DAILY 05/18/21 [History Confirmed 11/14/21] melatonin 5 mg tablet 5 mg PO HS PRN Insomnia 05/18/21 [History Confirmed 11/14/21] potassium chloride 20 mEq tablet,extended release 20 meq PO DAILY 05/18/21 [History Confirmed 11/14/21] folic acid 1 mg tablet 1 mg PO DAILY 11/14/21 [History Confirmed 11/14/21] loteprednol etabonate 0.5 % eye drops,suspension 1 drp Eye-Left QID 11/14/21 [History Confirmed 11/14/21] sodium hypochlorite 0.25 % solution (Dakin's Solution) 1 irrig topical BID 11/14/21 [History Confirmed 11/14/21] Exam Physical Exam Vital Signs: Temp Pulse Resp BP Pulse Ox O2 Del Method 100.8 F H 122 H 20 209/95 H 95 Room Air 11/15/21 15:43 11/15/21 15:43 11/15/21 15:43 11/15/21 15:43 11/15/21 15:43 11/15/21 15:43 Narrative: Bilateral lower extremity exam patient had left transplant amputation, left footwithout ulcerations, chronic edema, thickened skin. Right leg demonstrates chronic pitting and nonpitting edema with thickened skin patches, full thicknessplantar ulceration lateral distal foot sub metatarsal heads approximately 4 and 5 and extends to the midfoot measuring approximately 7 cm x 8 cm width and base that has depth measuring from approximately 3 mm to 6 mm, wound bed is pink and granular, moist, palpation of the ulcer reveals the wound is not probing to deeper tissues as there is no evidence of any tunneling. Periwound soft tissue is firm without cellulitis without sponginess, there is serosanguineous drainageon the dressing with no evidence of pus no odor is noted. Ulceration plantar right heel measures approximately 3 cm x 4 cm with an approximate depth of 4 mm. The base of this ulcer is pink and granular, moist, no periwound cellulitis no sponginess no tracking no tunneling no odor. Patient has nonpalpable pedal pulses. Patient's epicritic and protective sensations are absent bilateral. Results Labs CBC & Chem 7: 11/15/21 05:44 11/15/21 05:44 Hemoglobin A1c 5.6 % (4.3-5.6) 11/15/21 05:44 Microbiology Microbiology: Microbiology - Results from entire visit 11/14/21 13:23 Blood - Right Hand Blood Culture - Preliminary No Growth 1 Day 11/14/21 13:00 Blood - Right Antecubital Blood Culture - Preliminary No Growth 1 Day 11/14/21 14:36 Clean Void Midstream Urine Culture - Preliminary No Growth 1 Day 11/14/21 13:30 Nasal SARS Antigen (LFIA) - Final Assessment/Plan (1) Type 2 diabetes mellitus with foot ulcer: Code(s): E11.621 - Type 2 diabetes mellitus with foot ulcer; L97.509 - Non-pressure chronic ulcer of other part of unspecified foot with unspecified severity (2) PVD (peripheral vascular disease): Code(s): I73.9 - Peripheral vascular disease, unspecified (3) COVID-19: Code(s): U07.1 - COVID-19 Plan Compared to my wound evaluation in my office in mid August patient's plantar ulcerations are essentially unchanged but stable. Review of the x-rays and MRI show questionable osteomyelitis in the distal fifth metatarsal. Patient has hadprevious surgery in this area and while there appears to be a cortical erosion at the distal lateral aspect of the fifth metatarsal, today I am unable to find any communication between the wound and this area. Since I have seen this patient in the past right leg lacks findings consistent with cellulitis comparedto his usual baseline. Reviewed and appreciate vascular's consultation notes. Discussed with this patient that without appropriate vascular supply to the softtissues it is unlikely these wounds will heal. [facility] for hyperbaric oxygen therapy. If he meets the criteria this could be an alternative treatmentoption however emphasizing to the patient that there are no guarantees that thiswill improve the status of the wounds. Documented By: Bhakti Ochoa DPM 11/15/21 9667 Signed By: <Electronically signed by ELBA Ochoa> 11/15/21 1715 [facility] Work Phone: Consult note Author Riya Pitt [facility] November 19, 2021 9:10am Note Date/Time November 19, 2021 8: 57am [facility] [address] [place] [address] Infect. Disease Consult Note Signed Patient: Simon Lott MR#: [id number] : 1950 Acct:[id number] Age/Sex: 71 / M Adm Date: 2 Loc: Room: [address] [place] [address] Type: ADM IN Attending Dr: Deo Bernabe DO Copies to: DO Riya Mays MD Shawn J Warner, DO~ HPI Data of Consult Consult date: 11/19/21 Requesting Physician: Deo Bernabe DO Primary Care Provider: Maye Murray DO Consult Narrative History of present illness: Mr. Lott is a 71 year old male who was admitted back on November 14 sent over from a retirement facility due to fever. He was found to have acute kidney injury and an elevated white count and sinus tachycardia. Work-up of sepsis began. He has a chronic right foot diabetic infection that x-ray did show concerning findings of osteomyelitis. Both podiatry and vascular has evaluated the patient. Vascular states there is nothing they can do from an intervention standpoint to improve blood supply however the patient is not willing to accept amputation. Per podiatry's note the lower extremity look moreconsistent with cellulitis and his plantar ulcerations are unchanged. X-ray didmention cortical erosion of the distal fifth metatarsal for which was evaluated and no communication between the plantar wound in this area was able to be found. Patient also had as part of his work-up a CT scan abdomen pelvis on November 15 that showed left nephrolithiasis and left hydronephrosis and proximal hydroureter of uncertain etiology. Ureteral stricture was possible intervention. My understanding is a Sanchez catheter was placed and he has been having good urine output since. Creatinine however still remains elevated. Patient remains on meropenem/vancomycin. Patient looks comfortable. He states he feels otherwise good. I was consulted for leukocytosis and the diabetic footwound. CC: Deo Bernabe DO [facility] Attestation Statement: The following information was validated with the patient. Vaccinated for COVID-19?: Yes Medical History Alcohol abuse Amputated toe of left foot ALL 5 TOES Anemia BPH (benign prostatic hyperplasia) Cellulitis of left foot Chronic foot ulcer Diabetes Foot drop Hepatitis C HTN (hypertension) Hyperlipidemia Major depressive disorder Neuropathy PVD (peripheral vascular disease) Ruptured spleen Stroke Surgical History History of appendectomy History of transmetatarsal amputation of left foot Family History Mother Diabetes Father Diabetes Sister Diabetes Brother Diabetes Social History Smoking Status: Current some day smoker Tobacco Type: cigarettes Substance Use Type: None Substance Abuse Comment: NONE X 7 MONTHS Allergies and Medications Allergies and Active Meds Allergies codeine Allergy (Verified 05/18/21 09:55) Unknown Reaction lisinopril Allergy (Verified 05/18/21 09:55) Swelling of Lip/Tongue/Throat Active Medications Acarbose (Acarbose 50 Mg Tablet) 100 mg PO TID.WITH.MEALS JULIANN Stop: 11/15/22 07:59 Last Admin: 11/19/21 08:48 Dose: 100 mg Acetaminophen (Acetaminophen 325 Mg Tablet) 650 mg PO Q4H PRN PRN Reason: Pain Stop: 11/14/22 17:41 Last Admin: 11/15/21 18:15 Dose: 650 mg Amitriptyline HCl (Amitriptyline 10 Mg Tablet) 10 mg PO HS JULIANN Stop: 11/14/22 21:59 Last Admin: 11/18/21 21:39 Dose: 10 mg Ammonium Lactate (Ammonium Lactate 12% Lot 226 Gm Bottle) 1 applic TOPICAL QSHIFT JULIANN Stop: 11/14/22 21:59 Last Admin: 11/19/21 06:53 Dose: 1 applic Ascorbic Acid (Ascorbic Acid 500 Mg Tablet) 500 mg PO DAILY JULIANN Stop: 11/15/22 08:59 Last Admin: 11/19/21 08:49 Dose: 500 mg Atorvastatin Calcium (Atorvastatin 10 Mg Tablet) 10 mg PO HS [facility] Stop: 11/14/22 21:59 Last Admin: 11/18/21 21:39 Dose: 10 mg Clopidogrel Bisulfate (Clopidogrel Bisulfate 75 Mg Tablet) 75 mg PO DAILY JULIANN Stop: 11/15/22 08:59 Last Admin: 11/19/21 08:49 Dose: 75 mg Dextrose (Dextrose 50% In Water 25 Gm/50 Ml Syringe) 0 gm IV-PUSH PRN PRN PRN Reason: Hypoglycemia Stop: 11/14/22 17:37 Duloxetine HCl (Duloxetine 60 Mg Capsule.) 60 mg PO DAILY JULIANN Stop: 11/16/22 08:59 Last Admin: 11/19/21 08:49 Dose: 60 mg Ferrous Sulfate (Ferrous Sulfate 324 Mg Tablet.) 324 mg PO MoWeFr@0900 [facility] Stop: 11/16/22 08:59 Last Admin: 11/19/21 08:50 Dose: 324 mg Folic Acid (Folic Acid 1 Mg Tablet) 1 mg PO DAILY JULIANN Stop: 11/15/22 08:59 Last Admin: 11/19/21 08:50 Dose: 1 mg Furosemide (Furosemide 40 Mg/4 Ml Vial) 40 mg IV-PUSH BID@0800,1600 [facility] Stop: 11/15/22 15:59 Last Admin: 11/19/21 08:49 Dose: 40 mg Gabapentin (Gabapentin 600 Mg Tablet) 600 mg PO QPM JULIANN Stop: 11/15/22 20:59 Last Admin: 11/18/21 21:39 Dose: 600 mg Glucose (Dextrose 40% Gel 15 Gm Tube) 0 gm PO PRN PRN PRN Reason: Hypoglycemia Stop: 11/14/22 17:37 Heparin Sodium (Porcine) (Heparin 5,000 Unit/Ml Vial) 5,000 unit SUBCUT Q12HR JULIANN Stop: 11/14/22 20:59 Last Admin: 11/19/21 08:49 Dose: 5,000 unit Hydralazine HCl (Hydralazine 20 Mg/Ml Vial) 10 mg IV-PUSH Q4H PRN PRN Reason: Hypertension Stop: 11/14/22 21:49 Last Admin: 11/15/21 15:59 Dose: 10 mg Meropenem (Merrem) 1 gm in 100 mls @ 200 mls/hr IV Q12H [facility] Last Admin: 11/19/21 05:10 Dose: 200 mls/hr Insulin Aspart (Insulin Aspart 300 Units/3 Ml Insuln.Pen) 0 units SUBCUT TID.WM.HS [facility]; Protocol Stop: 11/14/22 21:59 Last Admin: 11/19/21 08:37 Dose: Not Given Insulin Detemir (Insulin Detemir 300 Units/3 Ml Insuln.Pen) 42 units SUBCUT DAILY [facility] Stop: 11/15/22 08:59 Last Admin: 11/19/21 08:50 Dose: 42 units Losartan Potassium (Losartan 50 Mg Tablet) 50 mg PO DAILY [facility] Stop: 11/18/22 08:59 Last Admin: 11/19/21 08:49 Dose: 50 mg Loteprednol Etabonate (Loteprednol 0.5% Op Susp 100 Drops/5 Ml Bottle) 1 drops EYE-LEFT QID [facility] Stop: 11/14/22 17:59 Last Admin: 11/19/21 08:50 Dose: 1 drops Melatonin (Melatonin 5 Mg Tablet) 5 mg PO HS PRN PRN Reason: Insomnia Stop: 11/14/22 17:41 Last Admin: 11/16/21 21:23 Dose: 5 mg Metoprolol Tartrate (Metoprolol Tartrate 5 Mg/5 Ml Vial) 5 mg IV-PUSH Q4H PRN PRN Reason: Blood Pressure Stop: 11/14/22 21:49 Nifedipine (Nifedipine Er.24hr 30 Mg Tab.Er.24) 30 mg PO DAILY [facility] Stop: 11/18/22 15:39 Last Admin: 11/19/21 08:49 Dose: 30 mg Saccharomyces Boulardii (Saccharomyces Boulardii 250 Mg Capsule) 250 mg PO BID.WITH.MEALS [facility] Stop: 11/15/22 07:59 Last Admin: 11/19/21 08:50 Dose: 250 mg Sodium Bicarbonate (Sodium Bicarbonate 650 Mg Tablet) 650 mg PO TID [facility] Stop: 11/15/22 13:59 Last Admin: 11/19/21 08:49 Dose: 650 mg Sodium Chloride (Sodium Chloride 0.9 % 10 Ml Syringe) 0 ml IV-PUSH PRN PRN PRN Reason: Flush Stop: 11/14/22 12:53 Last Admin: 11/18/21 09:06 Dose: 10 ml Sodium Chloride (Sodium Chloride 0.9 % 10 Ml Syringe) 0 ml IV-PUSH QSHIFT JULIANN Stop: 11/14/22 21:59 Last Admin: 11/19/21 06:53 Dose: 10 ml Sodium Hypochlorite (Sodium Hypochlorite 0.25% 473 Ml Solution) 0 ml TOPICAL BID JULIANN Stop: 11/14/22 20:59 Last Admin: 11/19/21 08:38 Dose: Not Given Tamsulosin HCl (Tamsulosin 0.4 Mg Cap.Er.24h) 0.4 mg PO BID [facility] Stop: 11/14/22 20:59 Last Admin: 11/19/21 08:49 Dose: 0.4 mg Vancomycin HCl (Vancomycin - Pharmacy Dosing 1 Each Miscell) 1 each IV PRN PRN; Protocol PRN Reason: ZZ.Pharmacy Consult Exam Physical Exam Vital Signs: Temp Pulse Resp BP Pulse Ox O2 Del Method 97.7 F 99 H 18 141/86 H 95 Room Air 11/19/21 07:48 11/19/21 07:48 11/19/21 07:48 11/19/21 07:48 11/19/21 07:48 11/19/21 07:48 Const General: cooperative and no acute distress Orientation: oriented x3 HEENT Head: normal to inspection Eyes General: appearance normal, both eyes and all related structures Neck Neck: normal visual inspection Chest Chest palpation & inspection: normal inspection of the chest Resp Effort & Inspection: normal respiratory effort Cardio Palpation: normal PMI Rate: regular rate Rhythm: regular rhythm GI Inspection: normal to inspection Palpation: soft Auscultation: normal bowel sounds Skin General: other (chronic RLE skin changes; warm to touch) Neuro General: patient oriented x3 Extrem General: edema Other: R plantar ulceration; drainage Results Labs CBC & Chem 7: 11/19/21 05:39 11/19/21 05:39 Labs: 11/18/21 05:44: Corrected WBC 15.3 H, Uncorrected WBC Count 15.3 H 11/19/21 05:39: Corrected WBC 14.8 H, Uncorrected WBC Count 14.8 H 11/19/21 05:39: BUN 40 H, Creatinine 3.38 H Microbiology Results Microbiology Narrative: Microbiology - Results from entire visit 11/14/21 13:23 Blood - Right Hand Blood Culture - Preliminary No Growth 4 Days 11/14/21 13:00 Blood - Right Antecubital Blood Culture - Preliminary No Growth 4 Days 11/14/21 14:36 Clean Void Midstream Urine Culture - Final No Growth 2 Days 11/14/21 13:30 Nasal SARS Antigen (LFIA) - Final Imaging and Cardiology Status: report viewed by me Results Comments: 11/15 CT ABD: IMPRESSION: ? BIBASILAR ATELECTASIS. ? LEFT NEPHROLITHIASIS. ? LEFT HYDRONEPHROSIS AND PROXIMAL HYDROURETER OF UNCERTAIN ETIOLOGY.? URETERAL STRICTURE IS POSSIBLE GIVEN THE HISTORY OF URETERAL STONES AND STENT. ? SLIGHT URINARY BLADDER WALL THICKENING THOUGH THIS MAY RELATE TO? INCOMPLETE DISTENTION. ? INCREASING INGUINAL AND PELVIC ADENOPATHY, GREATER ON THE RIGHT. ? SUBCUTANEOUS EDEMA. 11/15 Foot MRI: IMPRESSION: ? SIGNAL CHANGES INVOLVING THE FIFTH METATARSAL WHICH ARE HIGHLY SUSPICIOUS FOR OSTEOMYELITIS GIVEN THE PRESENCE OF AN ADJACENT ULCER. ? PROMINENT SOFT TISSUE EDEMA. ? A&P - Infectious Disease (1) Diabetic foot ulcer: Status: Chronic (2) TOM (acute kidney injury): Status: Acute (3) Leukocytosis: Status: Acute (4) Cellulitis and abscess of right leg: Status: Acute (5) PAD (peripheral artery disease): Status: Acute (6) Lab test positive for detection of COVID-19 virus: Status: Acute Plan Patient had evidence of cellulitis of the right lower extremity that is documented which seems to be improving as on exam today it is warm but not significantly erythematous. He does have a chronic nonhealing right foot wound which is likely due to his underlying diabetes and poor vascular supply. He is not a candidate for vascular revascularization and patient is not willing to accept amputation. He has been on vancomycin and meropenem for skin and soft tissue infection. Podiatry is also evaluated the patient and feels no surgical indication is needed at this time. He is being treated for cellulitis/wound infection. He does have a acute on chronic kidney injury and CT scan done earlier this hospital stay shows left hydronephrosis and hydroureter that appeared to be new. He is having good urine output now with Sanchez catheter in place. Favor CT scan abdomen pelvis to reevaluate this abnormality. If persistent hydroureter exists then will consider urology consult. In the meantime continue vancomycin and meropenem. Of note patient's COVID test did come back positive but he has no respiratory symptoms. Documented By: Riya Pitt MD 11/19/21 0854 Signed By: <Electronically signed by MD Riya Pitt> 11/19/21 0910 [facility] Work Phone: Consult note Author Kiko Corbett [facility] November 19, 2021 8:05pm Note Date/Time November 19, 2021 7: 01pm [facility] [address] [place] [address] Urology Consult Note Signed Patient: Simon Lott MR#: [id number] : 1950 Acct:[id number] Age/Sex: 71 / M Adm Date: 2 Loc: Room: [address] [place] [address] Type: ADM IN Attending Dr: Landon Grullon MD Copies to: Maye Murray,MD Kiko Zuñiga MD~ History of Present Illness Consult Details Consult Date: 11/19/2021 Reason for Urology Consult: Obstructive uropathy Requesting Provider: Landon Grullon MD HPI: 71 yo M with hx of BL ureteral stones s/p stents and ureteroscopy in the past byDr Giles in 2020, BPH with LUTS on tamsulosin at home, as well as history of CVA (on Plavix), CKD3 now CKD4 since August 2021, IDDM2, alcoholic liver disease, hep C, PAD and diabetic foot ulcer currently undergoing IV abx treatment (vanc, meropenem) for osteomyelitis who was admitted from SNF for fevers and chills x 1day. He is being medically managed for acute on CKD, hyperkalemia and metabolic acidosis by hospitalists and nephrology. ID, vascular and podiatry are following. No plans for surgical intervention at this time, as pt is refusing amputation. On admission, his Cr 3.43 from baseline 2-3.5 over the past year, Tm99F, WBC 19.8 to 30 shortly after, has now downtrended and is 14.8. Urine and blood cultures are negative. CT AP wo contrast demonstrated atelectasis, non obstructing 5mm left lower pole nephrolithaisis with mild-moderate hydroureteronephrosis to the proximal ureter without obvious obstruction. Also had subcutaneous edema and increasing inguinal/pelvic adenopathy greater on the right. Due to persistent elevated Cr 3.38 from 3.43 on admission (around his baseline since 08/2021 but not prior), CT AP was repeated showing persistent, similar L proximal hydroureteronephrosis despite sanchez placement with good urine output, remains on Lasix BID for edema, which is improving. Urine remains clear yellow. He currently denies flank pain, fever, chills, n/v or GI issues. He denies issues voiding prior to admission except weaker stream. Prior UTIs resolved after stone treatment. Of note he is COVID positive, asymptomatic without cough, shortness of breath orany respiratory symptoms. Current smoker PSH L toe amputation, appendectomy, splenectomy for ruptured spleen, BL URS/laser, stent placement and removal 07/[address] Giles Review of Systems Review of Systems Review of systems: General: denies fever, chills, wt loss Skin: denies rash or jaundice, +foot ulcers HEENT: denies epistaxis or oral lesion Neurological: denies weakness or sensory change Respiratory: denies dyspnea or shortness of breath Cardiac: denies chest pain or palpitations Gastrointestinal: denies nausea, emesis, diarrhea Urinary: denies dysuria or hematuria Musculoskeletal: denies muscle or back pain Psychiatric: denies mood or affect disorder Hematologic: + easy bleeding or bruising PMFSH Vaccinated for COVID-19?: Yes Medical History Alcohol abuse Amputated toe of left foot ALL 5 TOES Anemia BPH (benign prostatic hyperplasia) Cellulitis of left foot Chronic foot ulcer Diabetes Foot drop Hepatitis C HTN (hypertension) Hyperlipidemia Major depressive disorder Neuropathy PVD (peripheral vascular disease) Ruptured spleen Stroke Surgical History History of appendectomy History of transmetatarsal amputation of left foot Family History Mother Diabetes Father Diabetes Sister Diabetes Brother Diabetes Social History Smoking Status: Current some day smoker Tobacco Type: cigarettes Substance Use Type: None Substance Abuse Comment: NONE X 7 MONTHS Meds Medications and Allergies Allergies codeine Allergy (Verified 05/18/21 09:55) Unknown Reaction lisinopril Allergy (Verified 05/18/21 09:55) Swelling of Lip/Tongue/Throat Home Medications tamsulosin 0.4 mg capsule (Flomax) 0.4 mg PO BID 12/25/16 [History Confirmed 11/14/21] gabapentin 800 mg tablet (Neurontin) 800 mg PO TID 01/26/20 [History Confirmed 11/14/21] acetaminophen 325 mg tablet (Tylenol) 650 mg PO Q4H PRN Pain 03/21/20 [History Confirmed 11/14/21] alpha lipoic acid 300 mg capsule 200 mg PO DAILY 03/21/20 [History Confirmed 11/14/21] duloxetine 20 mg capsule,delayed release 60 mg PO BID 03/21/20 [History Confirmed 11/14/21] insulin aspart U-100 100 unit/mL subcutaneous solution (Novolog U-100 Insulin aspart) See Protocol subcut ACHS 03/21/20 [History Confirmed 11/14/21] amitriptyline 10 mg tablet 10 mg PO HS 05/25/20 [History Confirmed 11/14/21] ammonium lactate 12 % topical cream 1 applic topical QSHIFT 05/25/20 [History Confirmed 11/14/21] atorvastatin 10 mg tablet 10 mg PO HS 05/25/20 [History Confirmed 11/14/21] clopidogrel 75 mg tablet 75 mg PO DAILY 05/25/20 [History Confirmed 11/14/21] acarbose 100 mg tablet 100 mg PO TID 05/18/21 [History Confirmed 11/14/21] ascorbic acid (vitamin C) 500 mg tablet 500 mg PO DAILY 05/18/21 [History Confirmed 11/14/21] ferrous sulfate 324 mg (65 mg iron) tablet,delayed release 325 mg PO QMWF 05/18/21 [History Confirmed 11/14/21] insulin detemir U-100 100 unit/mL (3 mL) subcutaneous pen (Levemir FlexTouch U- 100 Insulin) 42 unit subcut DAILY 05/18/21 [History Confirmed 11/14/21] losartan 25 mg tablet 25 mg PO DAILY 05/18/21 [History Confirmed 11/14/21] melatonin 5 mg tablet 5 mg PO HS PRN Insomnia 05/18/21 [History Confirmed 11/14/21] potassium chloride 20 mEq tablet,extended release 20 meq PO DAILY 05/18/21 [History Confirmed 11/14/21] folic acid 1 mg tablet 1 mg PO DAILY 11/14/21 [History Confirmed 11/14/21] loteprednol etabonate 0.5 % eye drops,suspension 1 drp Eye-Left QID 11/14/21 [History Confirmed 11/14/21] sodium hypochlorite 0.25 % solution (Dakin's Solution) 1 irrig topical BID 11/14/21 [History Confirmed 11/14/21] Exam Physical Exam Vital Signs: Temp Pulse Resp BP Pulse Ox O2 Del Method 97.6 F 93 H 17 157/93 H 98 Room Air 11/19/21 16:00 11/19/21 16:00 11/19/21 16:00 11/19/21 16:00 11/19/21 16:00 11/19/21 16:00 Narrative: General: The patient appears nontoxic. Does not appear ill. Skin: Warm, dry. right foot wrapped. chronic BL lower extremity venous stasis skin changes HEENT: Normocephalic, atraumatic. Pupils equal, round, and reactive to light and accommodation. Oral mucosa moist. Respiratory: No increased respiratory effort. on RA Cardiac: Regular rate and rhythm, mild BL peripheral edema GI: Abdomen is soft, nontender, negative peritoneal signs : The bladder is nonpalpable. There is no CVA tenderness bilaterally. 16Fr sanchez to gravity with clear yellow urine Musculoskeletal: Moves all extremities, normal strength. R foot with dressing. Non weight bearing. Neurologic: Awake, alert, oriented Psychiatric: Affect normal to clinical condition Results Labs CBC & Chem 7: 11/19/21 05:39 11/19/21 05:39 Labs: Laboratory Results - Last 48 hrs. 11/19/21 15:46: POC Glucose 143 11/19/21 13:22: POC Glucose 166 11/19/21 07:48: POC Glucose 128 11/19/21 05:39: PHA Creatinine Clear 26.58, Sodium 135 L, Potassium 3.4 L, Chloride 106, Carbon Dioxide 21.8 L, BUN 40 H, Creatinine 3.38 H, Est GFR ( Amer) 22, Est GFR (Non-Af Amer) 18, Glucose 102 H, Calcium 7.7 L 11/19/21 05:39: Corrected WBC 14.8 H, Uncorrected WBC Count 14.8 H, RBC 3.02 L, Hgb 8.2 L, Hct 25.8 L, MCV 85.5, MCH 27.0 L, MCHC 31.6 L, RDW 18.1 H, Plt Count 227, MPV 9.5, Neut % (Auto) N/A, Lymph % (Auto) N/A, Brewster % (Auto) N/A, Eos % (Auto) N/A, Baso % (Auto) N/A, Neut # (Auto) N/A, Lymph # (Auto) N/A, Brewster # (Auto) N/A, Eos # (Auto) N/A, Baso # (Auto) N/A, Nucleated RBC % (auto) 0.1, Lymphocytes % 31, Monocytes % 7, Eosinophils % 4 H, Segmented Neutrophils 58, Platelet Estimate Normal, Plt Morphology Comment Normal, RBC Morphology N/A, Hypochromasia Slight, Anisocytosis Moderate, Target Cells Moderate, SchistocytesSlight 11/19/21 02:25: POC Glucose 118, POC Glucose Comment Glu2: cleaned meter 11/18/21 20:55: POC Glucose 146, POC Glucose Comment Glu2: cleaned meter 11/18/21 16:10: POC Glucose 154 11/18/21 11:48: POC Glucose 144 11/18/21 07:48: POC Glucose 115 11/18/21 05:44: Random Vancomycin 19.8 11/18/21 05:44: PHA Creatinine Clear 27.18, Sodium 138, Potassium 3.7, Chloride 108, Carbon Dioxide 22.3, BUN 41 H, Creatinine 3.29 H, Est GFR ( Amer) 23, Est GFR (Non-Af Amer) 19, Glucose 82, Calcium 7.6 L 11/18/21 05:44: Corrected WBC 15.3 H, Uncorrected WBC Count 15.3 H, RBC 2.78 L, Hgb 7.5 L, Hct 23.9 L, MCV 86.0, MCH 27.2 L, MCHC 31.6 L, RDW 17.8 H, Plt Count 221, MPV 9.2, Neut % (Auto) N/A, Lymph % (Auto) N/A, Brewster % (Auto) N/A, Eos % (Auto) N/A, Baso % (Auto) N/A, Neut # (Auto) N/A, Lymph # (Auto) N/A, Brewster # (Auto) N/A, Eos # (Auto) N/A, Baso # (Auto) N/A, Nucleated RBC % (auto) 0.2, Lymphocytes % 25, Monocytes % 2, Eosinophils % 7 H, Segmented Neutrophils 66, Platelet Estimate Normal, Plt Morphology Comment Normal, RBC Morphology N/A, Hypochromasia Moderate, Anisocytosis Moderate, Target Cells Moderate 11/18/21 02:59: POC Glucose 100, POC Glucose Comment Glu2: cleaned meter 11/17/21 21:01: POC Glucose 133, POC Glucose Comment Glu2: cleaned meter Microbiology Microbiology: 11/14/21 13:23 Blood - Right Hand Blood Culture - Final NO GROWTH 5 DAYS 11/14/21 13:00 Blood - Right Antecubital Blood Culture - Final NO GROWTH [address] scan - abdomen: report reviewed and image reviewed CT scan - pelvis: report reviewed and image reviewed Additional studies: CT ABDOMEN AND PELVIS WITHOUT CONTRAST COMPARISON: 05/25/2020 CLINICAL DATA: Fever and sepsis.? Wound at the foot.? History of acute kidney injury. Spiral images were obtained through the abdomen and pelvis without contrast.? This CT exam was performed using one or more following dose reduction techniques: Automated exposure control, adjustment of the mA and/or kV accordingto patient size, or use of iterative reconstruction technique. Limited cuts through the lung bases show dependent atelectasis.? Right gynecomastia is visualized. Evaluation of the intra-abdominal organs is slightly limited by the absence of contrast and motion artifact.? There are calcified hepatic granulomas.? The gallbladder is partially distended.? No obvious calcified gallstones are noted.?There is evidence of prior splenectomy.? The pancreas and adrenal glands show noacute findings.? There is bilateral perinephric fibrofatty stranding.? There is a stone at the lower pole of the left kidney measuring approximately 5 mm in size.? There is moderate left hydronephrosis.? There is also mild proximal ureteral dilatation and periureteral stranding.? No ureteral stones are identified. There is minor atherosclerotic disease at the aorta and iliac arteries.? There are tiny retroperitoneal and mesenteric lymph nodes.? There is no ascites.? There are clips along the greater curvature of the stomach.? The stomach is under distended proximally and there is air at the antrum.? The small bowel loops are not dilated.? There is stool along the colon.? There is slight levoscoliotic curvature and degenerative changes involving the spine, greatest at the lumbosacral junction. Images through the pelvis show nondistended small bowel.? No appendiceal inflammation is present.? The distal colon is underdistended and there segments of apparent wall thickening.? No prominent diverticular disease is visualized.? There is a Sanchez catheter within the urinary bladder along with a small amount of air that was probably introduced iatrogenically.? The bladder wall appears thickened.? No prostate enlargement is noted.? There are bilateral inguinal lymph nodes.? Some of these are prominent.? The largest on the right measuring 19 x 35 mm.? These have increased in size.? There are also smaller nodes along the iliac chain.? No ascites is seen.? There is subcutaneous edema. CT/CT abdomen pelvis wo con IMPRESSION: ? BIBASILAR ATELECTASIS. ? LEFT NEPHROLITHIASIS. ? LEFT HYDRONEPHROSIS AND PROXIMAL HYDROURETER OF UNCERTAIN ETIOLOGY.? URETERAL STRICTURE IS POSSIBLE GIVEN THE HISTORY OF URETERAL STONES AND STENT. ? SLIGHT URINARY BLADDER WALL THICKENING THOUGH THIS MAY RELATE TO? INCOMPLETE DISTENTION. ? INCREASING INGUINAL AND PELVIC ADENOPATHY, GREATER ON THE RIGHT. ? SUBCUTANEOUS EDEMA. REPEAT CT AP WO CONTRAST 11/19/21 Bilateral perinephric stranding identified.? Stone in the lower pole of the LEFTkidney is unchanged measuring 5 mm.? Moderate LEFT hydronephrosis redemonstrated.? Mild proximal ureteral dilatation and perirenal stranding identified.? No ureteral stone identified. Assessment/Plan (1) Lab test positive for detection of COVID-19 virus: Code(s): U07.1 - COVID-19 (2) TOM (acute kidney injury): Code(s): N17.9 - Acute kidney failure, unspecified (3) Hydroureteronephrosis: Code(s): N13.30 - Unspecified hydronephrosis (4) CKD (chronic kidney disease) stage 4, GFR 15-29 ml/min: Code(s): N18.4 - Chronic kidney disease, stage 4 (severe) Plan 71 yo M as above with complex medical history including IDDM, CVA on Plavix BFC2sgi hx of BL ureteral stones s/p intervention 07/[address] Giles who is admitted with elevated leukocytosis likely secondary to osteomyelitis from diabetic foot ulcer undergoing IV abx care due to pt refusal for amputation. Incidentally COVID positive. Urology was consulted due incidental findings of persistent mild-mod L hydroureteronephrosis to proximal ureter in absence of ureteral stones/obstruction. Cr remains elevated 3.38 from 3.43 on admission, has lingered around this since 08/2021, prior Cr was 2-3 range. Pt remains asymptomatic with good urine output via sanchez while on diuretics. Unclear if acute on chronic renal failure secondary to left hydroureteronephrosis vs new baseline. No obstructing stone on left, however dilation stops in proximal-mid ureter. Cannot rule out stricture. Unfortunately,cannot undergo NM Lasix renal scan due to poor renal function to eval for obstruction. -Due to this finding and new baseline elevated renal function, would recommend further evaluation with cystoscopy, left retrograde pyelogram, left ureteral stent placement for maximal decompression to see if renal function improves. Periop risks elevated by complex medical history including Plavix, body habitus,incidental finding of COVID although asx unsure if this may cause post-anesthesia respiratory issues. -Will have anesthesia evaluate for risk assessment, appreciate Hospitalist inputregarding medical optimization/clearance. Pt states if there is any pulmonary risk with anesthesia in setting of asymptomatic COVID, would not want to undergoprocedure, which I agree with given lack of symptoms. -NPO at midnight for potential procedure tomorrow afternoon. -Cont sanchez decompression for strict i/o and decompression given continued diuresis Documented By: Kiko Corbett MD 11/19/211899 Signed By: <Electronically signed by Kiko Corbett MD> 11/19/212004 [facility] Work Phone: Consult note Author Bhakti Ochoa [facility] September 10, 2022 5:56pm Note Date/Time September 10, 2022 5:56p m [facility] [address] [place] [address] Podiatry Consult Note Signed Patient: Simon Lott MR#: [id number] : 1950 Acct:[id number] Age/Sex: 72 / M Adm Date: 3 Loc: 4N Room: [address] [place] [address] Type: ADM IN Attending Dr: Kevin Steinberg MD Copies to: MD Bhakti Whipple DPM Laura E Spasic, NP-C~ HPI Data of Consult Consult Date: 09/10/22 Requesting Physician: Kevin Steinberg MD Primary Care Provider: ELÍAS Quigley Consult Narrative Reason for consult: Chronic ischemic ulcerations that demonstrate signs of acuteinfection History of present illness: I reviewed the patients medical record. Due to the patients history of peripheral arterial disease right lower extremity, await vascular consultation. PMFSH Vaccinated for COVID-19?: Yes Medical History Alcohol abuse Amputated toe of left foot ALL 5 TOES Anemia Anxiety BPH (benign prostatic hyperplasia) Cellulitis of left foot Chronic foot ulcer Depression Diabetes Foot drop Hepatitis C HTN (hypertension) Hyperlipidemia Hypertension Kidney stones Major depressive disorder Neuropathy PVD (peripheral vascular disease) Right foot infection Ruptured spleen Stroke Ureteral stone with hydronephrosis Surgical History History of appendectomy History of phacoemulsification of cataract of left eye with intraocular lens implantation History of transmetatarsal amputation of left foot Hx of nephrostomy Family History Mother Diabetes Father Diabetes Sister Diabetes Brother Diabetes Social History Smoking Status: Current every day smoker Tobacco Type: cigarettes Substance Use Type: None Substance Abuse Comment: NONE X 7 MONTHS Social History Comments: [facility] Meds Medications and Allergies Allergies codeine Allergy (Verified 09/10/22 10:29) Unknown Reaction lisinopril Allergy (Verified 09/10/22 10:29) Swelling of Lip/Tongue/Throat Home Medications acetaminophen 325 mg tablet (Tylenol) 650 mg PO Q4H PRN Pain 03/21/20 [History Confirmed 08/29/22] alpha lipoic acid 300 mg capsule 200 mg PO DAILY 03/21/20 [History Confirmed 08/29/22] insulin aspart U-100 100 unit/mL subcutaneous solution (Novolog U-100 Insulin aspart) See Protocol subcut ACHS 03/21/20 [History Confirmed 08/29/22] ammonium lactate 12 % topical cream 1 applic topical QSHIFT 05/25/20 [History Confirmed 08/29/22] atorvastatin 10 mg tablet 10 mg PO HS 05/25/20 [History Confirmed 09/10/22] clopidogrel 75 mg tablet 75 mg PO DAILY 05/25/20 [History Confirmed 08/29/22] acarbose 100 mg tablet 100 mg PO TID 05/18/21 [History Confirmed 09/10/22] ascorbic acid (vitamin C) 500 mg tablet 500 mg PO DAILY 05/18/21 [History Confirmed 08/29/22] ferrous sulfate 324 mg (65 mg iron) tablet,delayed release 325 mg PO QMWF 05/18/21 [History Confirmed 08/29/22] insulin detemir U-100 100 unit/mL (3 mL) subcutaneous pen (Levemir FlexTouch U- 100 Insulin) 40 unit subcut DAILY 05/18/21 [History Confirmed 09/10/22] melatonin 5 mg tablet 5 mg PO HS PRN Insomnia 05/18/21 [History Confirmed 08/29/22] potassium chloride 20 mEq tablet,extended release 20 meq PO DAILY 05/18/21 [History Confirmed 08/29/22] folic acid 1 mg tablet 1 mg PO DAILY 11/14/21 [History Confirmed 09/10/22] Saccharomyces boulardii 250 mg capsule (Florastor) 250 mg PO BID.WITH.MEALS #0 caps 11/21/21 [Rx Confirmed 08/29/22] furosemide 40 mg tablet 40 mg PO BID@0800,1600 #0 tabs 11/21/21 [Rx Confirmed 09/10/22] gabapentin 600 mg tablet 600 mg PO QPM #0 tabs 11/21/21 [Rx Confirmed 09/10/22] losartan 25 mg tablet 50 mg PO DAILY #30 tabs 11/21/21 [Rx Confirmed 08/29/22] nifedipine 30 mg tablet,extended release 24 hr 30 mg PO DAILY #0 tabs 11/21/21 [Rx Confirmed 08/29/22] polyethylene glycol 3350 17 gram oral powder packet (Miralax) 17 g PO DAILY #0 ea 11/21/21 [Rx Confirmed 08/29/22] sodium bicarbonate 650 mg tablet 650 mg PO TID #0 tabs 11/21/21 [Rx Confirmed 08/29/22] tamsulosin 0.4 mg capsule (Flomax) 0.4 mg PO BID 07/17/22 [History Confirmed 09/10/22] cephalexin 500 mg capsule 500 mg PO Q6H 7 days #28 caps 08/27/22 [Rx Confirmed 08/29/22] sulfamethoxazole 800 mg-trimethoprim 160 mg tablet (Bactrim DS) 1 tab PO Q12H 7 days #14 tabs 08/27/22 [Rx Confirmed 08/29/22] duloxetine 60 mg capsule,delayed release 60 mg PO BID 09/10/22 [History Confirmed 09/10/22] Exam Physical Exam Vital Signs: Temp Pulse Resp BP Pulse Ox O2 Del Method 97.5 F L 95 H 16 203/89 H 100 Room Air 09/10/22 16:20 09/10/22 16:20 09/10/22 16:20 09/10/22 16:20 09/10/22 16:20 09/10/22 17:00 Results Labs 09/10/22 11:50 09/10/22 11:50 ESR 122 mm/hr (0-19) H 09/10/22 11:50 Documented By: Bhakti Ochoa DPM 09/10/22 1748 Signed By: <Electronically signed by ELBA Ochoa> 09/10/22 1756 [facility] Work Phone: Consult note Author Riya Pitt [facility] September 11, 2022 9:39am Note Date/Time September 11, 2022 8:38a m [facility] [address] [place] [address] Infect. Disease Consult Note Signed with Fabiola Patient: Simon Lott MR#: [id number] : 1950 Acct:[id number] Age/Sex: 72 / M Adm Date: 3 Loc: Room: [address] [place] [address] Type: ADM IN Attending Dr: Kevin Steinberg MD Copies to: MD Mervat Whipple, BOAT OFFICER-C Riya Pitt MD~ ADDENDUM2 Further information revealed that patient said that he now sees Dr. Gayle. Patient in agreement to try antibiotics. Therefore will obtain PICC line. Addendum Documented By: MD Riya Pitt 09/11/22 0939 Addendum Signed By: <Electronically signed by MD Riya Pitt> 09/11/22 0939 ADDENDUM1 Just had a conversation with Dr. Rocha this morning. There really has not been an official vascular note since 2021 in the fall. When patient was here last time he left AMA before they could evaluate him. Podiatry who has been following him as an outpatient had documented August 29 and their consult note thatbelow the knee amputation was what they had recommended and discussed with him previously. Dr. Rocha told me this morning that patient does have pulses but due to his uncontrolled diabetes he is just not healing. Patient has been noncompliant with medical care. Addendum Documented By: MD Riya Pitt 09/11/22 0850 Addendum Signed By: <Electronically signed by MD Riya Pitt> 09/11/22 0850 HPI Data of Consult Consult date: 09/11/22 Requesting Physician: Kevin Steinberg MD Primary Care Provider: Mervat Santiago BOAT OFFICER-C Consult Narrative History of present illness: Mr. Lott is a 72 year old male who has been in the hospital and evaluated multiple times for his nonhealing right foot wound. He was just here at the [facility] August and left AGAINST MEDICAL ADVICE. He has been told that the right foot essentially cannot be salvaged and amputation would be the next step. He has had previous positive blood cultures which prompted the reason I am consulted. On consulted again for osteomyelitis for which without blood supply antibiotics would not be effective. CC: Kevin Steinberg MD Review of Systems Review of Systems All other systems reviewed & are negative unless noted below or in HPI [facility] Attestation Statement: The following information was validated with the patient. Vaccinated for COVID-19?: Yes Medical History Alcohol abuse Amputated toe of left foot ALL 5 TOES Anemia Anxiety BPH (benign prostatic hyperplasia) Cellulitis of left foot Chronic foot ulcer Depression Diabetes Foot drop Hepatitis C HTN (hypertension) Hyperlipidemia Hypertension Kidney stones Major depressive disorder Neuropathy PVD (peripheral vascular disease) Right foot infection Ruptured spleen Stroke Ureteral stone with hydronephrosis Surgical History History of appendectomy History of phacoemulsification of cataract of left eye with intraocular lens implantation History of transmetatarsal amputation of left foot Hx of nephrostomy Family History Mother Diabetes Father Diabetes Sister Diabetes Brother Diabetes Social History Smoking Status: Current every day smoker Tobacco Type: cigarettes Substance Use Type: None Substance Abuse Comment: NONE X 7 MONTHS [facility] Allergies and Medications Allergies and Active Meds Allergies codeine Allergy (Verified 09/10/22 10:29) Unknown Reaction lisinopril Allergy (Verified 09/10/22 10:29) Swelling of Lip/Tongue/Throat Active Medications Acarbose (Acarbose 50 Mg Tablet) 100 mg PO TID JULIANN Stop: 09/10/23 21:59 Last Admin: 09/11/22 08:06 Dose: 100 mg Acetaminophen (Acetaminophen 325 Mg Tablet) 650 mg PO Q6HR PRN PRN Reason: Pain Scale 1 - 3 or fever Stop: 09/10/23 17:00 Atorvastatin Calcium (Atorvastatin 10 Mg Tablet) 10 mg PO HS JULIANN Stop: 09/10/23 21:59 Last Admin: 09/10/22 21:36 Dose: 10 mg Duloxetine HCl (Duloxetine 60 Mg Capsule.Dr) 60 mg PO BID JULIANN Stop: 09/10/23 20:59 Folic Acid (Folic Acid 1 Mg Tablet) 1 mg PO DAILY JULIANN Stop: 09/11/23 08:59 Last Admin: 09/11/22 08:06 Dose: 1 mg Furosemide (Furosemide 40 Mg Tablet) 40 mg PO BID@0800,1600 JULIANN Stop: 09/11/23 07:59 Last Admin: 09/11/22 08:06 Dose: 40 mg Gabapentin (Gabapentin 600 Mg Tablet) 600 mg PO QPM JULIANN Stop: 09/10/23 20:59 Last Admin: 09/10/22 21:36 Dose: 600 mg Heparin Sodium (Porcine) (Heparin 5,000 Unit/Ml Vial) 5,000 unit SUBCUT Q8HR JULIANN Stop: 09/10/23 21:59 Last Admin: 09/11/22 05:29 Dose: 5,000 unit Meropenem (Merrem) 0.5 gm in 100 mls @ 200 mls/hr IV Q12H JULIANN Last Admin: 09/11/22 05:30 Dose: 200 mls/hr Insulin Aspart (Insulin Aspart 300 Units/3 Ml Insuln.Pen) 0 units SUBCUT TID.WM.HS JULIANN; Protocol Stop: 09/10/23 16:59 Last Admin: 09/11/22 08:05 Dose: Not Given Insulin Glargine (Insulin Glargine 300 Units/3 Ml Insuln.Pen) 40 units SUBCUT DAILY [facility] Stop: 09/11/23 08:59 Last Admin: 09/11/22 08:07 Dose: 40 units Labetalol HCl (Labetalol 100 Mg/20 Ml Vial) 10 mg IV-PUSH Q4H PRN PRN Reason: for sbp > 170 Stop: 09/10/23 16:42 Oxycodone HCl (Oxycodone Ir 5 Mg Tablet) 5 mg PO Q6HR PRN PRN Reason: Pain Scale 4 - 7 Sodium Chloride (Sodium Chloride 0.9 % 10 Ml Syringe) 0 ml IV-PUSH PRN PRN PRN Reason: Flush Stop: 09/10/23 13:33 Last Admin: 09/10/22 15:39 Dose: 10 ml Vancomycin HCl (Vancomycin - Pharmacy Dosing 1 Each Miscell) 1 each IV ONCE PRN; Protocol PRN Reason: ZZ.Pharmacy Consult Exam Physical Exam Vital Signs: Temp Pulse Resp BP Pulse Ox O2 Del Method 97.8 F 76 16 156/86 H 99 Room Air 09/11/22 07:32 09/11/22 07:32 09/11/22 07:32 09/11/22 07:32 09/11/22 07:32 09/11/22 07:32 Const General: cooperative, comfortable and no acute distress Orientation: oriented x3 HEENT Head: normal to inspection Ears: hearing grossly normal bilaterally Mouth: oral mucosae normal Eyes General: appearance normal, both eyes and all related structures Neck Neck: normal visual inspection Chest Chest palpation & inspection: normal inspection of the chest Resp Effort & Inspection: normal respiratory effort Cardio Palpation: normal PMI Rate: regular rate GI Inspection: normal to inspection Palpation: soft and nontender Skin Other: Right foot was unwrapped when I walked into the room. Right heel with odorous necrotic tissue. l Neuro General: patient oriented x3 Results Labs 09/11/22 05:09 09/11/22 05:09 Labs: 09/10/22 11:50: Corrected WBC 12.2 H, Uncorrected WBC Count 12.2 H 09/10/22 11:50: BUN 41 H, Creatinine 4.41 H 09/11/22 05:09: Corrected WBC 11.0 H, Uncorrected WBC Count 11.0 H 09/11/22 05:09: BUN 40 H, Creatinine 4.49 H A&P - Infectious Disease (1) Diabetic foot ulcer: Status: Chronic (2) PAD (peripheral artery disease): Status: Acute (3) Osteomyelitis of foot: Status: Acute Plan Patient was just here the end of August and left AGAINST MEDICAL ADVICE. Evaluation essentially remains the same that patient's neck step would be amputation of this right foot. Patient presented with a slightly elevated whitecount which she had before and no fever. The wound looks the same to me as I did the last time he was here. I am not sure what the concern was that was new that he came back to the hospital as I read that his home health nurse told him he needed to. From my standpoint empiric vancomycin meropenem can continue given the concern of systemic infection from this right foot however antibioticsare not going to get delivered to this right foot necrotic heel wound due to thefact blood supply is lacking. Documented By: Riya Pitt MD 09/11/22 0833 Signed By: <Electronically signed by MD Riya Pitt> 09/11/22 0838 [facility] Work Phone: Consult note Author Fawad Rocha [facility] September 11, 2022 9:29am Note Date/Time September 11, 2022 9:24a m [facility] [address] [place] [address] Vascular Surgery Consult Note Signed Patient: Simon Lott MR#: [id number] : 1950 Acct:[id number] Age/Sex: 72 / M Adm Date: 3 Loc: 4N Room: [address] [place] [address] Type: ADM IN Attending Dr: Kevin Steinberg MD Copies to: MD Fawad Whipple MD Laura E Spasic, BOAT OFFICER-C~ HPI Consult HPI Reason for consult: Nonhealing right foot wounds History of present illness: Mr. Ltot is a 72 year old male with diabetes, severe chronic renal insufficiency, and a longstanding ulceration of his right foot. He has lost allthe toes on his left foot but it remains healed. I saw him beginning in 2019 for heel ulcer as well as a dorsal foot wound. Because he failed to progress and had inconclusive noninvasive studies we performed a diagnostic arteriogram at that time which did not show significant peripheral vascular occlusive disease. He still has the same heel ulcer as well as a lateral foot wound. He healed the dorsal foot wound and the remaining wounds are likely related due to neuropathy and continued pressure. There is now some potential question of osteomyelitis in his heel but the findings are not overly impressive on MRI. cc:: CC: Kevin Steinberg MD Data of Consult Consult date: 09/11/2022 Requesting Physician: Kevin Steinberg MD [facility] Vaccinated for COVID-19?: Yes Medical History Alcohol abuse Amputated toe of left foot ALL 5 TOES Anemia Anxiety BPH (benign prostatic hyperplasia) Cellulitis of left foot Chronic foot ulcer Depression Diabetes Foot drop Hepatitis C HTN (hypertension) Hyperlipidemia Hypertension Kidney stones Major depressive disorder Neuropathy PVD (peripheral vascular disease) Right foot infection Ruptured spleen Stroke Ureteral stone with hydronephrosis Surgical History History of appendectomy History of phacoemulsification of cataract of left eye with intraocular lens implantation History of transmetatarsal amputation of left foot Hx of nephrostomy Family History Mother Diabetes Father Diabetes Sister Diabetes Brother Diabetes Social History Smoking Status: Current every day smoker Tobacco Type: cigarettes Substance Use Type: None Substance Abuse Comment: NONE X 7 MONTHS Social History Comments: [facility] Allergies & Active Medications Medications and Allergies Allergies codeine Allergy (Verified 09/10/22 10:29) Unknown Reaction lisinopril Allergy (Verified 09/10/22 10:29) Swelling of Lip/Tongue/Throat Exam Physical Exam Vital Signs: Temp Pulse Resp BP Pulse Ox O2 Del Method 97.8 F 76 16 156/86 H 99 Room Air 09/11/22 07:32 09/11/22 07:32 09/11/22 07:32 09/11/22 07:32 09/11/22 07:32 09/11/22 07:32 Narrative: Pleasant male interacts appropriately with the examiner. His left foot shows healed amputations of 5 toes. His right foot he has granular wounds of the [place] the lateral foot with no purulence erythema or cellulitis. He has a palpable posterior tibial pulse. Results Labs 09/11/22 05:09 09/11/22 05:09 Labs: Laboratory Results - last 24 hr 09/10/22 09/10/22 09/10/22 11:50 11:50 11:50 Corrected WBC 12.2 H Uncorrected WBC Count 12.2 H RBC 3.17 L Hgb 9.5 L Hct 29.9 L MCV 94.4 MCH 30.0 MCHC 31.8 L RDW 16.3 H Plt Count 214 MPV 10.3 H Neut % (Auto) 45.4 Lymph % (Auto) 42.1 [place] % (Auto) 8.6 Eos % (Auto) 3.5 Baso % (Auto) 0.4 Nucleat RBC Rel Count 0.1 Neut # (Auto) 5.5 Lymph # (Auto) 5.1 H [place] # (Auto) 1.0 H Eos # (Auto) 0.4 Baso # (Auto) 0.0 Monocyte Dist Width 19.06 ESR PT 12.6 INR 1.1 APTT 30.9 PHA Creatinine Clear 19.50 Sodium 134 L Potassium 5.2 H Chloride 107 Carbon Dioxide 19.7 L Anion Gap 12.5 BUN 41 H Creatinine 4.41 H Est GFR (CKD-EPI) 13.476 Glucose 130 H POC Glucose Lactic Acid Calcium 8.5 L Phosphorus Total Bilirubin 0.3 C-Reactive Prot, Quant Albumin Urine Color Urine Appearance Urine pH Ur Specific [place] Urine Protein Urine Glucose (UA) Urine Ketones Urine Occult Blood Urine Nitrite Urine Bilirubin Urine Urobilinogen Ur Leukocyte Esterase Urine RBC Urine WBC Ur Squamous Epith Cells Urine Bacteria Hyaline Casts 09/10/22 09/10/22 09/10/22 11:50 11:50 11:50 Corrected WBC Uncorrected WBC Count RBC Hgb Hct MCV MCH MCHC RDW Plt Count MPV Neut % (Auto) Lymph % (Auto) [place] % (Auto) Eos % (Auto) Baso % (Auto) Nucleat RBC Rel Count Neut # (Auto) Lymph # (Auto) [place] # (Auto) Eos # (Auto) Baso # (Auto) Monocyte Dist Width ESR 122 H PT INR APTT PHA Creatinine Clear Sodium Potassium Chloride Carbon Dioxide Anion Gap BUN Creatinine Est GFR (CKD-EPI) Glucose POC Glucose Lactic Acid 1.3 Calcium Phosphorus Total Bilirubin C-Reactive Prot, Quant 0.8 H Albumin Urine Color Urine Appearance Urine pH Ur Specific [place] Urine Protein Urine Glucose (UA) Urine Ketones Urine Occult Blood Urine Nitrite Urine Bilirubin Urine Urobilinogen Ur Leukocyte Esterase Urine RBC Urine WBC Ur Squamous Epith Cells Urine Bacteria Hyaline Casts 09/10/22 09/10/22 09/11/22 15:00 21:26 05:09 Corrected WBC 11.0 H Uncorrected WBC Count 11.0 H RBC 2.89 L Hgb 9.0 L Hct 27.5 L MCV 95.1 MCH 31.2 MCHC 32.9 RDW 16.3 H Plt Count 184 MPV 9.9 Neut % (Auto) 49.4 Lymph % (Auto) 37.7 [place] % (Auto) 8.6 Eos % (Auto) 3.9 Baso % (Auto) 0.4 Nucleat RBC Rel Count 0.1 Neut # (Auto) 5.4 Lymph # (Auto) 4.1 [place] # (Auto) 0.9 H Eos # (Auto) 0.4 Baso # (Auto) 0.0 Monocyte Dist Width ESR PT INR APTT PHA Creatinine Clear Sodium Potassium Chloride Carbon Dioxide Anion Gap BUN Creatinine Est GFR (CKD-EPI) Glucose POC Glucose 184 Lactic Acid Calcium Phosphorus Total Bilirubin C-Reactive Prot, Quant Albumin Urine Color Yellow Urine Appearance Clear Urine pH 6.0 Ur Specific [place] 1.012 Urine Protein 300 H Urine Glucose (UA) Normal Urine Ketones Negative Urine Occult Blood Trace H Urine Nitrite Negative Urine Bilirubin Negative Urine Urobilinogen Normal Ur Leukocyte Esterase Negative Urine RBC 1-2 Urine WBC None seen Ur Squamous Epith Cells None seen Urine Bacteria None seen Hyaline Casts None seen 09/11/22 05:09 Corrected WBC Uncorrected WBC Count RBC Hgb Hct MCV MCH MCHC RDW Plt Count MPV Neut % (Auto) Lymph % (Auto) [place] % (Auto) Eos % (Auto) Baso % (Auto) Nucleat RBC Rel Count Neut # (Auto) Lymph # (Auto) [place] # (Auto) Eos # (Auto) Baso # (Auto) Monocyte Dist Width ESR PT INR APTT PHA Creatinine Clear 19.65 Sodium 135 L Potassium 5.4 H Chloride 111 H Carbon Dioxide 17.5 L Anion Gap 11.9 BUN 40 H Creatinine 4.49 H Est GFR (CKD-EPI) 13.189 Glucose 110 H POC Glucose Lactic Acid Calcium 8.2 L Phosphorus 3.7 Total Bilirubin C-Reactive Prot, Quant Albumin 2.9 L Urine Color Urine Appearance Urine pH Ur Specific [place] Urine Protein Urine Glucose (UA) Urine Ketones Urine Occult Blood Urine Nitrite Urine Bilirubin Urine Urobilinogen Ur Leukocyte Esterase Urine RBC Urine WBC Ur Squamous Epith Cells Urine Bacteria Hyaline Casts PT 12.6 Seconds (9.0-12.9) 09/10/22 11:50 APTT 30.9 Seconds (25.1-36.5) 09/10/22 11:50 A&P - Vascular (1) Diabetic foot ulcer: Code(s): E11.621 - Type 2 diabetes mellitus with foot ulcer; L97.509 - Non-pressure chronic ulcer of other part of unspecified foot with unspecified severity Status: Chronic (2) PAD (peripheral artery disease): Plan: Based on the prior diagnostic arteriogram from 2019 and today's physical examination I do not believe that vascular insufficiency is the primary cause ofhis ulceration. There is no urgency to proceeding with any amputation given that the limb is currently not threatening his life. I would continue with wound care at this time. Code(s): I73.9 - Peripheral vascular disease, unspecified Status: Acute (3) Osteomyelitis of foot: Code(s): M86.9 - Osteomyelitis, unspecified Status: Acute Documented By: Fawad Rocha MD 09/11/22 092 4 Signed By: <Electronically signed by MD Fawad Rocha> 09/11/22 0929 [facility] Work Phone: Consult note Author [facility] September 11, 2022 2:01pm Note Date/Time September 11, 2022 2:01p m [facility] [address] [place] [address] Nephrology Consult Note Signed Patient: Simon Lott MR#: [id number] : 1950 Acct:[id number] Age/Sex: 72 / M Adm Date: 3 Loc: 4N Room: [address] [place] [address] Type: ADM IN Attending Dr: Kevin Steinberg MD Copies to: MD Johan Whipple MD Laura E Spasic, NP-C~ Providers Consult Date: 09/11/22 Requesting Provider: Kevin Steinberg MD Primary Care Provider: ELÍAS Quigley [facility] Reason for Consult: Management of advanced CKD during hospital stay History of Present Illness: Mr. Lott is a 72-year-old -[place] male well-known to me, he used to follow-up in my office for progressive CKD related to DM2 and obstructive uropathy related to bilateral nephrolithiasis s/p nephrostomy tubes that was removed later on. Serum creatinine has progressed over the last couple of yearsfrom 2.5 up to 4.5 mg/dL. Patient has been noncompliant and he was last seen onAugus2021. Other significant medical problems as PAD with diabetic foot ulcerfor which he follow- up with podiatry as outpatient. Patient presented to ER on 09/10 with right diabetic foot ulcer that has been going on for quite some time. Patient was recently in the hospital on August 2021 and he was found to have osteomyelitis and MRSA bacteremia. He was evaluated by podiatry and recommendation was made for right foot amputation and vascular surgery consultation however the patient left AGAINST MEDICAL ADVICE. He was evaluated by our nephrology team at that time and his creatinine has been around 4.5 to 4.7 mg/dL. Repeat kidney ultrasound showed persistent left hydronephrosis after removal of nephrostomy tube. He was supposed to follow-up with urology however he did not show up as well. Patient was admitted for further management of right diabetic foot ulcer. He agreed to start antibiotics and he just had PICC line started. Patient has been noncompliant with medication with uncontrolled diabetes that may contribute to nonhealing foot ulcer. He was evaluated by vascular surgery and he seems to have pulses at this point. Plan is to try antibiotics before embarking on amputation. Renal ashley, serum creatinine has been around the same with elevated blood pressure 160-1 170s. He has minimal edema. He has no shortness of breath. Potassium in the upper range of normal 5.4 mEq/L and he has mild acidosis with CO2 17.5. Review of his medication showed that the patient on potassium supplement 20 mill equivalent daily, furosemide, sodium bicarb and and losartan. It is not clear if the patient has been compliant with medications. I had discussion with the patient and he agreed to proceed with AV fistula in case he will need dialysis that is anticipated shortly considering the progressive decline in renal function over the last 2 years. Patient denies any chest pain. No shortness of breath. No fever or chills. Hehas right foot pain and discomfort. No nausea or vomiting. No diarrhea. No urinary symptoms Review of Systems Review of Systems All other systems reviewed & are negative unless noted below or in HPI Constitutional Constitutional: Reports system reviewed and no additional complaints, except as documented Cardiovascular Cardiovascular: Reports system reviewed and no additional complaints, except as documented Respiratory Respiratory: Reports system reviewed and no additional complaints, except as documented Gastrointestinal Gastrointestinal: Reports system reviewed and no additional complaints, except as documented Genitourinary Genitourinary: Reports system reviewed and no additional complaints, except as documented Neurologic Neurologic: Reports system reviewed and no additional complaints, except as documented Hematologic/Lymphatic Hematologic/Lymphatic: Reports system reviewed and no additional complaints, except as documented PMFSH Vaccinated for COVID-19?: Yes Medical History Alcohol abuse Amputated toe of left foot ALL 5 TOES Anemia Anxiety BPH (benign prostatic hyperplasia) Cellulitis of left foot Chronic foot ulcer Depression Diabetes Foot drop Hepatitis C HTN (hypertension) Hyperlipidemia Hypertension Kidney stones Major depressive disorder Neuropathy PVD (peripheral vascular disease) Right foot infection Ruptured spleen Stroke Ureteral stone with hydronephrosis Surgical History History of appendectomy History of phacoemulsification of cataract of left eye with intraocular lens implantation History of transmetatarsal amputation of left foot Hx of nephrostomy Family History Mother Diabetes Father Diabetes Sister Diabetes Brother Diabetes Social History Smoking Status: Current every day smoker Tobacco Type: cigarettes Substance Use Type: None Substance Abuse Comment: NONE X 7 MONTHS Social History Comments: [facility] Meds Medications & Allergies Allergies codeine Allergy (Verified 09/10/22 10:29) Unknown Reaction lisinopril Allergy (Verified 09/10/22 10:29) Swelling of Lip/Tongue/Throat Home Medications acetaminophen 325 mg tablet (Tylenol) 650 mg PO Q4H PRN Pain 03/21/20 [History Confirmed 08/29/22] alpha lipoic acid 300 mg capsule 200 mg PO DAILY 03/21/20 [History Confirmed 08/29/22] insulin aspart U-100 100 unit/mL subcutaneous solution (Novolog U-100 Insulin aspart) See Protocol subcut ACHS 03/21/20 [History Confirmed 08/29/22] ammonium lactate 12 % topical cream 1 applic topical QSHIFT 05/25/20 [History Confirmed 08/29/22] atorvastatin 10 mg tablet 10 mg PO HS 05/25/20 [History Confirmed 09/10/22] clopidogrel 75 mg tablet 75 mg PO DAILY 05/25/20 [History Confirmed 08/29/22] acarbose 100 mg tablet 100 mg PO TID 05/18/21 [History Confirmed 09/10/22] ascorbic acid (vitamin C) 500 mg tablet 500 mg PO DAILY 05/18/21 [History Confirmed 08/29/22] ferrous sulfate 324 mg (65 mg iron) tablet,delayed release 325 mg PO QMWF 05/18/21 [History Confirmed 08/29/22] insulin detemir U-100 100 unit/mL (3 mL) subcutaneous pen (Levemir FlexTouch U- 100 Insulin) 40 unit subcut DAILY 05/18/21 [History Confirmed 09/10/22] melatonin 5 mg tablet 5 mg PO HS PRN Insomnia 05/18/21 [History Confirmed 08/29/22] potassium chloride 20 mEq tablet,extended release 20 meq PO DAILY 05/18/21 [History Confirmed 08/29/22] folic acid 1 mg tablet 1 mg PO DAILY 11/14/21 [History Confirmed 09/10/22] Saccharomyces boulardii 250 mg capsule (Florastor) 250 mg PO BID.WITH.MEALS #0 caps 11/21/21 [Rx Confirmed 08/29/22] furosemide 40 mg tablet 40 mg PO BID@0800,1600 #0 tabs 11/21/21 [Rx Confirmed 09/10/22] gabapentin 600 mg tablet 600 mg PO QPM #0 tabs 11/21/21 [Rx Confirmed 09/10/22] losartan 25 mg tablet 50 mg PO DAILY #30 tabs 11/21/21 [Rx Confirmed 08/29/22] nifedipine 30 mg tablet,extended release 24 hr 30 mg PO DAILY #0 tabs 11/21/21 [Rx Confirmed 08/29/22] polyethylene glycol 3350 17 gram oral powder packet (Miralax) 17 g PO DAILY #0 ea 11/21/21 [Rx Confirmed 08/29/22] sodium bicarbonate 650 mg tablet 650 mg PO TID #0 tabs 11/21/21 [Rx Confirmed 08/29/22] tamsulosin 0.4 mg capsule (Flomax) 0.4 mg PO BID 07/17/22 [History Confirmed 09/10/22] cephalexin 500 mg capsule 500 mg PO Q6H 7 days #28 caps 08/27/22 [Rx Confirmed 08/29/22] sulfamethoxazole 800 mg-trimethoprim 160 mg tablet (Bactrim DS) 1 tab PO Q12H 7 days #14 tabs 08/27/22 [Rx Confirmed 08/29/22] duloxetine 60 mg capsule,delayed release 60 mg PO BID 09/10/22 [History Confirmed 09/10/22] Active Medications: Active Medications Acarbose (Acarbose 50 Mg Tablet) 100 mg PO TID JULIANN Stop: 09/10/23 21:59 Last Admin: 09/11/22 08:06 Dose: 100 mg Acetaminophen (Acetaminophen 325 Mg Tablet) 650 mg PO Q6HR PRN PRN Reason: Pain Scale 1 - 3 or fever Stop: 09/10/23 17:00 Atorvastatin Calcium (Atorvastatin 10 Mg Tablet) 10 mg PO HS JULIANN Stop: 09/10/23 21:59 Last Admin: 09/10/22 21:36 Dose: 10 mg Duloxetine HCl (Duloxetine 60 Mg Capsule.) 60 mg PO BID JULIANN Stop: 09/10/23 20:59 Folic Acid (Folic Acid 1 Mg Tablet) 1 mg PO DAILY JULIANN Stop: 09/11/23 08:59 Last Admin: 09/11/22 08:06 Dose: 1 mg Furosemide (Furosemide 40 Mg Tablet) 40 mg PO BID@0800,1600 JULIANN Stop: 09/11/23 07:59 Last Admin: 09/11/22 08:06 Dose: 40 mg Gabapentin (Gabapentin 600 Mg Tablet) 600 mg PO QPM JULIANN Stop: 09/10/23 20:59 Last Admin: 09/10/22 21:36 Dose: 600 mg Heparin Sodium (Porcine) (Heparin 5,000 Unit/Ml Vial) 5,000 unit SUBCUT Q8HR JULIANN Stop: 09/10/23 21:59 Last Admin: 09/11/22 05:29 Dose: 5,000 unit Meropenem (Merrem) 0.5 gm in 100 mls @ 200 mls/hr IV Q12H [facility] Last Admin: 09/11/22 05:30 Dose: 200 mls/hr Insulin Aspart (Insulin Aspart 300 Units/3 Ml Insuln.Pen) 0 units SUBCUT TID.WM.HS [facility]; Protocol Stop: 09/10/23 16:59 Last Admin: 09/11/22 11:51 Dose: Not Given Insulin Glargine (Insulin Glargine 300 Units/3 Ml Insuln.Pen) 40 units SUBCUT DAILY [facility] Stop: 09/11/23 08:59 Last Admin: 09/11/22 08:07 Dose: 40 units Labetalol HCl (Labetalol 100 Mg/20 Ml Vial) 10 mg IV-PUSH Q4H PRN PRN Reason: for sbp > 170 Stop: 09/10/23 16:42 Oxycodone HCl (Oxycodone Ir 5 Mg Tablet) 5 mg PO Q6HR PRN PRN Reason: Pain Scale 4 - 7 Sodium Chloride (Sodium Chloride 0.9 % 10 Ml Syringe) 0 ml IV-PUSH PRN PRN PRN Reason: Flush Stop: 09/10/23 13:33 Last Admin: 09/10/22 15:39 Dose: 10 ml Sodium Chloride (Sodium Chloride 0.9 % 10 Ml Syringe) 0 ml IV-PUSH PRN PRN PRN Reason: Flush Stop: 09/11/23 09:45 Vancomycin HCl (Vancomycin - Pharmacy Dosing 1 Each Miscell) 1 each IV ONCE PRN; Protocol PRN Reason: ZZ.Pharmacy Consult Exam Physical Exam Vital Signs: Temp Pulse Resp BP Pulse Ox O2 Del Method 36.6 C 82 16 174/92 H 100 Room Air 09/11/22 11:48 09/11/22 11:48 09/11/22 11:48 09/11/22 11:48 09/11/22 11:48 09/11/22 11:48 Narrative: General: Looks ill and older than his stated age. He is breathing comfortably with no acute distress Head : Atraumatic, normal cephalic. No pallor, jaundice or cyanosis. Neck: no JVD no bruit. Heart: Distant heart sound, S1-S2. RRR Respiratory: Clear to auscultation. No wheezing. No crackles Abdomen: Soft, positive bowel sounds,no tenderness. No palpable organs or masses. Neurology: Awake alert oriented x3. No focal deficits Extremity. No cyanosis. Trace edema of lower extremities. Right foot is wrapped. He has a reported heel ulcer. Skin: No skin rash. Results Labs 09/11/22 05:09 09/11/22 05:09 Labs: 09/10/22 09/11/22 15:00 05:09 BUN 40 H Creatinine 4.49 H Phosphorus 3.7 Albumin 2.9 L Urine Color Yellow Urine Appearance Clear Urine pH 6.0 Ur Specific [place] 1.012 Urine Protein 300 H Urine Glucose (UA) Normal Urine Ketones Negative Urine Occult Blood Trace H Urine Nitrite Negative Ur Leukocyte Esterase Negative Urine RBC 1-2 Urine WBC None seen Urine Bacteria None seen Radiology Impressions Impressions - last 24 hours: Any impression(s) listed above is documentation that was entered by the reading physician into a diagnostic report(s) for Simon Lott. I have reviewed the report(s) and am incorporating any findings in the treatment plan of this patient where applicable. ECG Data Attestation: I reviewed this ECG and interpreted as documented below: ECG Narrative: Normal sinus rhythm with sinus arrhythmia. LVH with left axis deviation. A&P - Nephrology Assessment/Plan (1) Chronic kidney disease, stage V: Plan: Patient has advanced CKD due to diabetic nephropathy, hypertension and obstructive nephropathy. Patient has history of left hydronephrosis needed percutaneous nephrostomy tube placement which was removed 3 months ago. Repeat renal ultrasound revealed persistent left hydroureteronephrosis. UA revealed 300 protein likely from diabetic nephropathy. Serum creatinine has progressed over the last 2 years because of noncompliance with medications and follow-up with his doctors. Creatinine has been around 4.5 to 4.7 mg/dL with minimal hyperkalemia and acidosis. (2) Hydroureteronephrosis: Plan: Patient has history of nephrolithiasis with left-sided hydronephrosis. Patient is supposed to follow with Dr. De La O urology office. Patient had left percutaneous nephrostomy tube placed which was removed 3 months ago. (3) Anemia: Plan: He has anemia in the setting of CKD stage V. Hemoglobin 9.0 g/dL. Patient has been on ferrous sulfate at home. (4) Hypertensive chronic kidney disease with stage 1 through stage 4 chronic kidney disease, or unspecified chronic kidney disease: Plan: Blood pressure is elevated possibly noncompliance with medications. Furosemide 40 mg p.o. twice a day was started. Used to be on nifedipine and losartan that is currently on hold for hyperkalemia (5) Diabetic foot ulcer: Plan: Patient is admitted with infected right foot diabetic ulcer along with osteomyelitis and MRSA bacteremia. He left AMA last admission on August 2022 and currently agreed to start antibiotics. PICC line was inserted. (6) Metabolic acidosis: Plan: Likely from advanced CKD. Patient on sodium bicarb oral 650 mg 3 times daily however he probably noncompliant. (7) Hyperkalemia: Plan: Patient had mild hyperkalemia 5.4 mmol/L in the setting of advanced CKD. Losartan is on hold however it is not clear if the patient has been taking the medication at home. Plan * Renal ashley, serum creatinine and GFR at baseline however the patient has advanced CKD and he will need dialysis shortly. I had discussion with the patient about future care in case if you need dialysis and he agrees to proceed with AV fistula at this time. We will consult vascular surgery for venous mapping and AV fistula during this admission or as outpatient. * Blood pressure still elevated. Continue furosemide 40 mg twice a day and restart nifedipine 60 mg daily. We will adjust medications to keep systolic blood pressure closer to 140s if possible. * Restart sodium bicarbonate 1300 mg p.o. 3 times daily that is well improved acidosis and hyperkalemia. * Continue low potassium diet * Diabetes management is being addressed by hospitalist team. * Patient is currently on vancomycin and meropenem, dose is being adjusted by the pharmacy * Monitor daily intake and output and renal panel during hospital stay. Patient can follow-up with urology as outpatient for persistent left hydronephrosis however it is not clear if stent or left nephrostomy tube will change his prognosis is much. Eventually the patient will need dialysis considering the significant diabetic nephropathy and noncompliance. Ideally we should wait until AV fistula mature however we can start dialysis through tunneled hemodialysis catheter if indicated at any time. I appreciate this consultation we will be happy to follow the patient with you during his hospital stay. Documented By: Johan Taylor MD 09/11/22 1338 Signed By: <Electronically signed by MD Johan Taylor> 09/11/22 1401 [facility] Work Phone: Consult note Author Riya [facility] October 23, 2022 11:44am Note Date/Time October 23, 2022 11:3 2am [facility] [address] [place] [address] Infect. Disease Consult Note Signed Patient: Simon Lott MR#: [id number] : 1950 Acct:[id number] Age/Sex: 72 / M Adm Date: 3 Loc: Room: [address] [place] [address] Type: ADM IN Attending Dr: Riya Sampson DO Copies to: ELÍAS Quigley DO Michael S Blank, MD~ HPI Data of Consult Consult date: 10/23/22 Requesting Physician: Riya Sampson DO Primary Care Provider: ELÍAS Quigley Consult Narrative History of present illness: Mr. Lott is a 72 year old male who is known to me from multiple hospital stays and persistent nonhealing right foot infection. He has been following with Dr. Gayle in [place]. He was discharged Back on September 12 and the plan was for him to stay on IV meropenem for 6 weeks to target osteomyelitis of the right heel. I have not seen him since then though [facility] received many phone calls about him. He had gone to emergency room October 13 due to bleeding at the base of his right foot. Blood cultures were drawn and they had turned positive for stenotrophomonas. He had already been sent from the ER but when they called me about a nights that he needed to come back and beadmitted. Patient was very difficult getting a hold of according to the ER and then we did she did come back he left AMA. Intermittently despite about 15-20 phone calls the ER is made he finally came back to the hospital and had repeat blood cultures drawn and again they are growing stenotrophomonas. He has a PICCline in his left upper extremity that has been receiving meropenem for. Patientstates he feels fine and denies any systemic symptoms of infection. He was readmitted last night and agreed to stay. He is now on Avycaz. CC: Riya Sampson Review of Systems Review of Systems All other systems reviewed & are negative unless noted below or in HPI [facility] Attestation Statement: The following information was validated with the patient. Vaccinated for COVID-19?: Yes Medical History Alcohol abuse Amputated toe of left foot ALL 5 TOES Anemia Anxiety BPH (benign prostatic hyperplasia) Cellulitis of left foot Chronic foot ulcer Depression Diabetes Foot drop Hepatitis C HTN (hypertension) Hyperlipidemia Hypertension Kidney stones Major depressive disorder Neuropathy PVD (peripheral vascular disease) Right foot infection Ruptured spleen Stroke Ureteral stone with hydronephrosis Surgical History History of appendectomy History of phacoemulsification of cataract of left eye with intraocular lens implantation History of transmetatarsal amputation of left foot Hx of nephrostomy Family History Mother Diabetes Father Diabetes Sister Diabetes Brother Diabetes Social History Smoking Status: Current every day smoker Tobacco Type: cigarettes Substance Use Type: Alcohol Social History Comments: [facility] Allergies and Medications Allergies and Active Meds Allergies codeine Allergy (Verified 10/21/22 12:39) Unknown Reaction lisinopril Allergy (Verified 10/21/22 12:39) Swelling of Lip/Tongue/Throat Active Medications Acarbose (Acarbose 50 Mg Tablet) 100 mg PO TID JULIANN Stop: 10/22/23 21:59 Last Admin: 10/23/22 09:53 Dose: 100 mg Ammonium Lactate (Ammonium Lactate 12% Lot 226 Gm Bottle) 1 applic TOPICAL DAILY JULIANN Stop: 10/23/23 08:59 Last Admin: 10/23/22 09:57 Dose: 1 applic Atorvastatin Calcium (Atorvastatin 10 Mg Tablet) 10 mg PO HS JULIANN Stop: 10/22/23 21:59 Last Admin: 10/22/22 23:05 Dose: 10 mg Clopidogrel Bisulfate (Clopidogrel Bisulfate 75 Mg Tablet) 75 mg PO DAILY JULIANN Stop: 10/23/23 08:59 Last Admin: 10/23/22 09:54 Dose: 75 mg Duloxetine HCl (Duloxetine 60 Mg Capsule.Dr) 60 mg PO QHS JULIANN Stop: 10/22/23 21:59 Last Admin: 10/22/22 23:05 Dose: 60 mg Folic Acid (Folic Acid 1 Mg Tablet) 1 mg PO DAILY [facility] Stop: 10/23/23 08:59 Last Admin: 10/23/22 09:53 Dose: 1 mg Furosemide (Furosemide 40 Mg Tablet) 40 mg PO BID@0800,1600 [facility] Stop: 10/23/23 07:59 Last Admin: 10/23/22 09:53 Dose: 40 mg Gabapentin (Gabapentin 600 Mg Tablet) 600 mg PO QPM JULIANN Stop: 10/22/23 20:59 Last Admin: 10/22/22 23:05 Dose: 600 mg Heparin Sodium (Porcine) (Heparin 5,000 Unit/Ml Vial) 5,000 unit SUBCUT Q8HR [facility] Stop: 10/22/23 21:59 Last Admin: 10/23/22 07:01 Dose: 5,000 unit Aztreonam (Azactam) 2 gm in 100 mls @ 200 mls/hr IV Q8H [facility] Last Admin: 10/23/22 07:02 Dose: 200 mls/hr Ceftazidime/Avibactam 0.94 gm/ (Sodium Chloride) 100 mls @ 50 mls/hr IV Q12H [facility]; Protocol Stop: 10/22/23 22:29 Last Admin: 10/22/22 22:59 Dose: 50 mls/hr Insulin Aspart (Insulin Aspart 300 Units/3 Ml Insuln.Pen) 0 units SUBCUT ACHS [facility]; Protocol Stop: 10/23/23 07:29 Last Admin: 10/23/22 07:55 Dose: Not Given Insulin Glargine (Insulin Glargine 300 Units/3 Ml Insuln.Pen) 42 units SUBCUT DAILY [facility] Stop: 10/23/23 08:59 Last Admin: 10/23/22 09:54 Dose: 42 units Melatonin (Melatonin 5 Mg Tablet) 5 mg PO HS PRN PRN Reason: Insomnia Stop: 10/22/23 20:39 Nifedipine (Nifedipine Er.24hr 90 Mg Tab.Er.24) 90 mg PO DAILY [facility] Stop: 10/23/23 08:59 Last Admin: 10/23/22 09:54 Dose: 90 mg Polyethylene Glycol (Polyethylene Glycol 3350 17 Gm Powd.Pack) 17 gm PO DAILY [facility] Stop: 10/23/23 08:59 Last Admin: 10/23/22 09:57 Dose: 17 gm Potassium Chloride (Potassium Chloride Er 20 Meq Tab.Er.Prt) 20 meq PO DAILY JULIANN Stop: 10/23/23 08:59 Last Admin: 10/23/22 09:54 Dose: 20 meq Sodium Bicarbonate (Sodium Bicarbonate 650 Mg Tablet) 1,300 mg PO TID JULIANN Stop: 10/22/23 21:59 Last Admin: 10/23/22 09:54 Dose: 1,300 mg Sodium Chloride (Sodium Chloride 0.9 % 10 Ml Syringe) 0 ml IV-PUSH PRN PRN PRN Reason: Flush Stop: 10/22/23 15:31 Last Admin: 10/22/22 22:24 Dose: 10 ml Tamsulosin HCl (Tamsulosin 0.4 Mg Cap.Er.24h) 0.4 mg PO BID JULIANN Stop: 10/22/23 20:59 Last Admin: 10/23/22 09:53 Dose: 0.4 mg Exam Physical Exam Vital Signs: Temp Pulse Resp BP Pulse Ox O2 Del Method 97.7 F 99 H 18 174/84 H 98 Room Air 10/23/22 07:55 10/23/22 07:55 10/23/22 07:55 10/23/22 07:55 10/23/22 07:55 10/23/22 08:00 Const General: cooperative, comfortable and no acute distress Orientation: oriented x3 HEENT Head: normal to inspection Ears: hearing grossly normal bilaterally Mouth: oral mucosae normal Eyes General: appearance normal, both eyes and all related structures Neck Neck: normal visual inspection Chest Chest palpation & inspection: normal inspection of the chest Resp Effort & Inspection: normal respiratory effort Cardio Palpation: normal PMI Rate: regular rate GI Inspection: normal to inspection Palpation: soft and nontender Skin Other: To my surprise the right foot though clearly still has wounds looks a lot betterthan it did back in September. Ulcer over the left heel still with some drainage. Some ulcerations noted at the toes as well on the right. Neuro General: patient oriented x3 Extrem Other: PICC in left upper extremity without swelling or tenderness Results Labs 10/23/22 06:28 10/23/22 08:06 Labs: 10/22/22 16:06: Corrected WBC 11.3 H, Uncorrected WBC Count 11.3 H 10/22/22 16:06: BUN 26 H, Creatinine 2.92 H 10/23/22 06:28: Corrected WBC 11.9 H, Uncorrected WBC Count 11.9 H 10/23/22 06:28: BUN 29 H, Creatinine 2.84 H Microbiology Results Microbiology Narrative: 10/22/22 16:38 Blood Culture - Pending Blood - Left Wrist 10/22/22 16:14 Blood Culture - Pending Blood - Right Hand Microbiology 10/21/22 13:51 Blood - Right Antecubital Blood Culture - Preliminary No Growth 1 Day 10/21/22 13:22 Blood - Pic Line Blood Culture - Preliminary 10/21/22 13:22 Blood - Pic Line Stenotrophomonas maltophilia 10/21/22 13:22 Blood - Pic Line Bacterial ID (NA Multiplex Assay) - Final 10/13/22 10:01 Blood - Right Hand Blood Culture - Final NO GROWTH 5 DAYS 10/13/22 09:52 Blood - Left Arm Blood Culture - Final 10/13/22 09:52 Blood - Left Arm Bacterial ID (NA Multiplex Assay) - Final Stenotrophomonas maltophilia Paolaeobacterium gleum A&P - Infectious Disease (1) Infection due to Stenotrophomonas maltophilia: Status: Acute (2) Bacteremia: Status: Acute (3) Left against medical advice: Status: Acute Plan Patient has had positive blood cultures for stenotrophomonas since October 13. He has not followed with medical advice about coming back to the emergency room andstaying for admission in order to have this worked up. He now is here and because of this we will have the PICC line pulled given the length of time he has been bacteremic. I agree with Avycaz will attempt to clear his cultures after the PICC line is pulled. As for his right foot I have to say that I am surprised that this is looking as good as it is externally. He follows with in [place]. Compared to my previous evaluation of his right foot the right heel definitely looks better. We will still have a wound care evaluate for further recommendations on dressing changes as when I took off the dressing the dressing was still saturated. Patient denies systemic symptoms. Maintain Avycaz and will discuss with pharmacy regarding the amikacin need. Documented By: Riya Pitt MD 10/23/22 1127 Signed By: <Electronically signed by MD Riya Pitt> 10/23/22 1145 [facility] Work Phone: Discharge summary Author Landon Grullon [facility] November 21, 2021 7:38pm Note Date/Time November 21, 2021 5: 27pm [facility] [address] [place] [address] Discharge Summary Signed Patient: Simon Lott MR#: [id number] : 1950 Acct:[id number] Age/Sex: 71 / M Adm Date: 2 Loc: Room: [address] [place] [address]: Landon Grullon MD Copies to: Maye Murray,DO Landon Grullon MD~ Providers Date of Discharge: 11/21/21 Discharging Provider: Landon Grullon Primary Care Provider: Maye Murray Consults: 11/14/21 17:38 Consult to Nephrology Routine Consult to Podiatry Routine Consult to Vascular Surgery Routine 11/17/21 16:24 Consult to Occupational Therapy Routine Consult to Physical Therapy Routine 11/18/21 15:41 Consult to Infectious Diseases Routine 11/19/21 15:53 Vascular Lab PICC Consult Routine 11/19/21 15:57 Consult to Urology Routine 11/21/21 08:41 Consult to RN PLASTICS Routine Discharge Diagnosis (1) Type 2 diabetes mellitus with foot ulcer: (2) Sepsis: (3) Hydronephrosis, left: (4) High anion gap metabolic acidosis: (5) Hyperkalemia: (6) CKD (chronic kidney disease) stage 4, GFR 15-29 ml/min: (7) Hypertensive chronic kidney disease with stage 1 through stage 4 chronic kidney disease, or unspecified chronic kidney disease: (8) Type 2 diabetes mellitus with diabetic chronic kidney disease: (9) Anemia: (10) Osteomyelitis of foot: Final Diagnosis Final Discharge Diagnosis: As above Summary Hospital Course Hospital course: Mr. Lott is a 71-year-old male with PMH of CKD stage III, insulin- dependent T2DM, atrial fibrillation, PVD, chronic diabetic foot ulcer who presented to the emergency department from his [facility] facility with sepsis. Patient was also noted to have acute kidney injury on his CKD stage IIIand nephrology was consulted for their assessment. Given his foot findings bothpodiatry and vascular surgery were consulted as well. He was also started on broad-spectrum antibiotic therapy with IV vancomycin and Invanz. Vascular surgery recommended likely BKA or AKA in the future, but this was not needed urgently. Podiatry noted that patient's wounds were essentially unchanged, but x-rays and MRI did show questionable osteomyelitis in the distal fifth metatarsal. Podiatry did not recommend further surgical intervention during this hospitalization. Patient was maintained on broad-spectrum IV antibiotic therapy while inpatient. Ultimately, was recommended for 10 days of IV antibiotic therapy with vancomycin and Invanz. PICC line was placed, and patient was plan to continue this course at his retirement facility. Also of note, patient found to have left-sided hydronephrosis on CT imaging of the abdomen and pelvis. Renal function remained essentially stable with creatinine of around 3.4, though this was higher than patient's previous baseline. In the past few months, patient did have ureteral stent placed and stone removal by urology. Urology came to assess patient during this visit and given patient's stable creatinine, and his election to not proceed with further surgical intervention, he was recommended to follow-up as an outpatient. Patient was found to be COVID-19 positive on admission, and was worried about increased risks of procedure which were explained to him prior to performing any urologic intervention. 40 minutes spent coordinating the discharge of this patient Time Spent with Patient Time spent providing/coordinating discharge services (# min): 40 Diagnostic Studies Completed and Pending Studies Pending studies at discharge: 11/22/21 05:00 Basic Metabolic Panel [CHEM] IN AM Complete Blood Count Auto Diff IN AM 11/22/21 18:00 Vancomycin,Random [TOX] Timed 11/23/21 05:00 Basic Metabolic Panel [CHEM] IN AM Complete Blood Count Auto Diff IN AM 11/24/21 05:00 Basic Metabolic Panel [CHEM] IN AM Complete Blood Count Auto Diff IN AM Labs on day of discharge: 11/21/21 16:34: POC Glucose 155 11/21/21 11:56: POC Glucose 160 11/21/21 07:18: POC Glucose 110, POC Glucose Comment Glu2: cleaned meter 11/21/21 06:01: PHA Creatinine Clear 25.89, Sodium 138, Potassium 3.8, Chloride 105, Carbon Dioxide 23.6, BUN 45 H, Creatinine 3.41 H, Est GFR ( Amer) 22, Est GFR (Non-Af Amer) 18, Glucose 104 H, Calcium 8.1 L 11/21/21 06:01: Corrected WBC 15.6 H, Uncorrected WBC Count 15.6 H, RBC 3.06 L, Hgb 8.3 L, Hct 25.9 L, MCV 84.4, MCH 27.0 L, MCHC 32.0 L, RDW 17.7 H, Plt Count 263, MPV 10.6 H, Neut % (Auto) 54.1, Lymph % (Auto) 31.7, Brewster % (Auto) 9.6, Eos% (Auto) 3.4, Baso % (Auto) 1.2, Neut # (Auto) 8.4 H, Lymph # (Auto) 5.0 H, Brewster# (Auto) 1.5 H, Eos # (Auto) 0.5 H, Baso # (Auto) 0.2, Nucleated RBC % (auto) 0.1, Platelet Estimate Normal, Plt Morphology Comment Normal, RBC Morphology N/A,Hypochromasia Slight, Anisocytosis Slight, Target Cells Moderate, Schistocytes Slight 11/20/21 21:13: POC Glucose 91, POC Glucose Comment Glu2: cleaned meter 11/20/21 16:43: POC Glucose 127 Exam Physical Exam Vital Signs: Temp Pulse Resp BP Pulse Ox O2 Del Method 97.6 F 92 H 18 172/85 H 94 L Room Air 11/21/21 11:55 11/21/21 11:55 11/21/21 11:55 11/21/21 11:55 11/21/21 11:55 11/21/21 11:55 Narrative: Constitutional: Elderly AA male, resting in bed in no acute distress HEENT: Moist mucous membranes, neck supple, no JVD Cardiovascular: RRR, no M/R/G, normal S1 and S2 Respiratory: Clear to auscultation bilaterally, no wheezes, rales or rhonchi GI: Soft, NTND, NABS, no rebound tenderness or guarding : Sanchez catheter in place Extremities: Bilateral lower extremities indurated with stasis dermatitis changes bilaterally in the distal legs. Feet are wrapped bilaterally in dressings covering patient's chronic wounds. Not visualized on today's examination Neuro: AAOx3, no focal deficits. 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: [facility] [place] Care/Resident Activity: Ambulate as Tolerated Diet: Diabetic Additional Instructions: [facility] to manage care: - PT/OT eval and treat - Routine vital signs - Fingerstick blood sugar ACHS - Boost glucose control TID with meals - COVID-19 precautions per protocol-- patient tested positive for COVID-19 on11/14/21 - Maintain right arm PICC line for IV antibiotics, routine dressing changes/flushes per facility protocol *Placed on 11/21/21 - Monitor for increased signs of infection - Monitor intake and outout - Routine skin care and assessments - Perform podiatry and genitourinary assessments - Change dressing every 2 days: *right foot and heel till seen by podiatry- allow vashe moistened gauze soak on wound bed for 5 min., wipe free loose debris, apply therahoney sheet, then fluffed super spounge, top with abd pads, secure with kerlix, then 4 inch cristina wraps - Change dressing every 3 days: *Mepilex border foam to coccyx scarring for added protection - Maintain and perform routine care to sanchez catheter until seen by urology *Placed on 11/14/21 - Care to be managed by [facility] providers. Instructions: [facility] COVID-19 Discharge Instructions Prescriptions: New furosemide 40 mg Tablet 40 mg PO BID@0800,1600 Qty: 0 0RF polyethylene glycol 3350 [Miralax] 17 gram Powder In Packet 17 g PO DAILY Qty: 0 0RF Ertapenem [INVanz] 0.5 GM Sodium Chloride 0.9% 100 ml [0.9% Sodium Chloride 100 ml] 100 ML 200 mls/hr IV Q24H Ordered By: Landon Grullon MD Last Taken: 11/21/21 18:32 200 mls/hr nifedipine 30 mg Tablet Extended Release 24 Hr 30 mg PO DAILY Qty: 0 0RF sodium bicarbonate 650 mg Tablet 650 mg PO TID Qty: 0 0RF Saccharomyces boulardii [Florastor] 250 mg Capsule 250 mg PO BID.WITH.MEALS Qty: 0 0RF gabapentin 600 mg Tablet 600 mg PO QPM Qty: 0 0RF vancomycin in dextrose 5 % 1 gram/250 mL solution See Rx Instructions .ROUTE .COMPLEX Qty: 5000 0RF Rx Instructions: For a TOTAL of 10 days of treatment Continued tamsulosin [Flomax] 0.4 mg capsule,extended release 24hr 0.4 mg PO BID Label Comments: acetaminophen [Tylenol] 325 mg Tablet 650 mg PO Q4H PRN (Reason: Pain) duloxetine 20 mg Capsule,Delayed Release(Dr/Ec) 60 mg PO BID insulin aspart U-100 [Novolog U-100 Insulin aspart] 100 unit/mL Solution See Protocol SUBCUT ACHS Protocol: Custom Scale - Custom (Blank) Condition: Dose/Route: Instruction: Condition: Fingerstick Blood Glucose Dose/Route: Insulin Units Condition: 151-200mg/dl Dose/Route: 2 unit Condition: 201-250mg/dl Dose/Route: 4 units Condition: 251-300mg/dl Dose/Route: 6 units Condition: 301-350mg/dl Dose/Route: 8 units Condition: 351-400mg/dl Dose/Route: 10 units Condition: 401-450mg/dl Dose/Route: 12 units Condition: 451-500mg/dl Dose/Route: 14 units Condition: Greater than or = 500 mg/dl Instruction: Call Provider Condition: Custom Scale 1:___ Instruction: GIVE 1 UNIT OF ASPART FOR EVERY ___MG GLUCOSE Instruction: STARTING AT 150MG AT BG CHECKS Protocol Text: *If the corrective scale dose has been administered within the past 4 hours, do not use corrective scale again unless approved by prescriber* Rx Instructions: 151-200 2 units 201-250 4 units 251-300 6 units 301-350 8 units 351-400 10 units 401-450 12 units 451-500 14 units over 500 [address] doctor alpha lipoic acid 300 mg Capsule 200 mg PO DAILY atorvastatin 10 mg tablet 10 mg PO HS clopidogrel 75 mg tablet 75 mg PO DAILY amitriptyline 10 mg tablet 10 mg PO HS ammonium lactate 12 % Cream 1 applic TOPICAL QSHIFT ascorbic acid (vitamin C) 500 mg Tablet 500 mg PO DAILY acarbose 100 mg Tablet 100 mg PO TID Levemir FlexTouch U-100 Insuln 100 unit/mL (3 mL) insulin pen 42 unit SUBCUT DAILY Label Comments: inject 30 units subcutaneously once daily melatonin 5 mg Tablet 5 mg PO HS PRN (Reason: Insomnia) potassium chloride 20 mEq Tablet Extended Release 20 meq PO DAILY ferrous sulfate 324 mg (65 mg iron) tablet,delayed release (DR/EC) 325 mg PO QMWF folic acid 1 mg tablet 1 mg PO DAILY Label Comments: take 1 tablet by mouth once daily loteprednol etabonate 0.5 % Drops,Suspension 1 drp Eye-Left QID Dakin's Solution 0.25 % Solution 1 irrig TOPICAL BID Changed losartan 25 mg tablet 50 mg PO DAILY Qty: 30 3RF Discontinued gabapentin [Neurontin] 800 mg Tablet 800 mg PO TID Follow Up: Johan Taylor MD [Active Staff] - 01/31/22 1:20 pm (Post hospital follow-up appointment. Please call to reschedule if needed. ) Bhakti Ochoa DPM [Active Staff] - (Please call office for a follow-up appointment. ) Riya Pitt MD [Active Staff] - 12/06/21 1:30 pm (Post hospital follow-up appointment. Please call to reschedule if needed. ) Master Mauricio MD [Active Staff] - 12/19/21 10:30 am (Please call office to reschedule if this time does not work for you. Thank you.) Kiko Corbett MD [Active Staff] - (The office was notified of your discharge andneed for cystoscopy. Please contact the office on 11/24/21 to reschedule the procedure. ) Documented By: Landon Grullon MD 2 1726 Signed By: <Electronically signed by Landon Grullon MD> 11/21/21 1938 [facility] Work Phone: Discharge summary Author Riya Sampson [facility] October 24, 2022 1:48pm Note Date/Time October 24, 2022 1:48 pm [facility] [address] [place] [address] Discharge Summary Signed Patient: Simon Lott MR#: [id number] : 1950 Acct:[id number] Age/Sex: 72 / M Adm Date: 3 Loc: Room: 5X5977-[address]: Riya Sampson DO Copies to: Mervat Santiago, ELÍAS Sampson, DO~ Providers Date of Discharge: 10/24/22 Discharging Provider: Riya Sampson Primary Care Provider: Mervat Santiago Consults: 10/22/22 20:35 Consult to Infectious Diseases Routine Discharge Diagnosis (1) Infection due to Stenotrophomonas maltophilia: (2) Bacteremia: (3) Diabetic foot ulcer: (4) Type 2 diabetes mellitus with diabetic chronic kidney disease: Final Diagnosis Final Discharge Diagnosis: In addition to the above diagnoses: 5. Leukocytosis 6. Chronic kidney disease stage V 7. Hypertension 8. Diabetic neuropathy 9. Hyperlipidemia 10. Benign prostatic hypertrophy Summary Hospital Course Hospital course: This patient is a 72-year-old male who presented to the emergency department on 10/22/2022 after being called back for positive blood cultures drawn 10/13/2022 in the ER. Patient was called multiple times and finally came back to the ER on 10/21 but left AGAINST MEDICAL ADVICE only to return the next day. He was noted to have leukocytosis and low-grade fevers. It was thought that the source of his bacteremia was his PICC line. The patient had been receiving meropenem intravenously via this PICC line as an outpatient, has been receiving treatment for this since September 10 of this year. Patient was subsequently admitted for bloodculture monitoring and removal of PICC line as well as infectious disease consultation. PICC line was removed and patient was treated with Avycaz intravenously while inpatient. Ultimately thought that his diabetic wound is healing quite nicely. Patient did not exhibit any further symptoms or signs of progressing infection throughout his stay. His vital signs remained stable. When considering the patient's poor compliance with previous therapies and the duration of treatment he has already received it is thought the patient would best be served with oral antibiotics and discharged home rather than additional PICC line placement and complicating IV antibiotics going forward. Subsequentlyhe will receive 2 more weeks of oral Levaquin per infectious disease recommendations on discharge. Physical Examination: GENERAL APPEARANCE: The patient pulls his blankets up over his face and does notspeak but is seemingly awake HEENT: NCAT, MMM NECK: Neck soft w/o masses, no JVD CARDIAC: Normal S1 and S2. No S3, S4 or murmurs. LUNGS: Clear to auscultation anteriorly ABDOMEN: Positive bowel sounds. Soft, nontender. No guarding or signs of an acute abdomen EXTREMITIES: No clubbing, cyanosis.? Large lymphedematous lower extremities bilaterally, appropriate dressing in place to right lower extremity NEUROLOGICAL: No focal deficits PSYCHIATRIC: Appropriate mood and affect 25 minutes were spent coordinating the discharge of this patient. Time Spent with Patient Time spent providing/coordinating discharge services (# min): 25 Diagnostic Studies Completed and Pending Studies Pending studies at discharge: 10/22/22 16:38 Blood Culture Stat 10/25/22 05:00 Basic Metabolic Panel [CHEM] IN AM Complete Blood Count Auto Diff IN AM 10/26/22 05:00 Basic Metabolic Panel [CHEM] IN AM Complete Blood Count Auto Diff IN AM 10/27/22 05:00 Basic Metabolic Panel [CHEM] IN AM Complete Blood Count Auto Diff IN AM Preliminary micro results at discharge 10/22/22 16:38 Blood Culture - Preliminary Blood - Left Wrist No Growth 1 Day 10/22/22 16:14 Blood Culture - Preliminary Blood - Right Hand No Growth 1 Day Labs on day of discharge: 10/24/22 11:07: POC Glucose 99 10/24/22 06:21: PHA Creatinine Clear 32.10, Sodium 142, Potassium 4.2, Chloride 111 H, Carbon Dioxide 23.6, Anion Gap 11.6, BUN 30 H, Creatinine 2.78 H, Est GFR (CKD-EPI) 23.445, Glucose 76, Calcium 7.4 L 10/24/22 06:21: Corrected WBC 10.3, Uncorrected WBC Count 10.3, RBC 2.45 L, Hgb 7.9 L, Hct 24.4 L, MCV 99.8, MCH 32.4, MCHC 32.5, RDW 18.1 H, Plt Count 244, MPV 10.2 H, Neut % (Auto) N/A, Lymph % (Auto) N/A, Brewster % (Auto) N/A, Eos % (Auto) N/A, Baso % (Auto) N/A, Nucleat RBC Rel Count N/A, Neut # (Auto) N/A, Lymph # (Auto) N/A, Brewster # (Auto) N/A, Eos # (Auto) N/A, Baso # (Auto) N/A, Lymphocytes % 28, Monocytes % 7, Eosinophils % 4 H, Basophils % 1, Myelocytes % 1 H, Segmented Neutrophils 59, Smudge Cells Slight, Platelet Estimate Normal, Large Platelets Slight, Giant Platelets 7, Plt Morphology Comment N/A, RBC Morphology N/A, Polychromasia Slight, Hypochromasia Moderate, Poikilocytosis Slight, Anisocytosis Moderate, Microcytosis Slight, Macrocytosis Moderate, Target Cells Moderate, Acanthocytes (Spur) Slight, Schistocytes Slight 10/23/22 16:07: POC Glucose 157 Exam Physical Exam Vital Signs: Temp Pulse Resp BP Pulse Ox O2 Del Method 97.6 F 83 18 150/83 H 97 Room Air 10/24/22 11:50 10/24/22 11:50 10/24/22 11:50 10/24/22 11:50 10/24/22 11:50 10/24/22 11:50 Discharge Plan Discharge Plan Patient Disposition: Home Health Services Activity: Other Comment: As ordered prior to hospital admission Diet: Diabetic Additional Instructions: Monitor your blood sugar prior to each meal. Keep a record of these to take to your Dr. appointments. Off load bilateral heels HOME HEALTH TO MANAGE: Nursing/Aide to eval and treat Monitor VS per protocol--HTN Monitor Skin assessment and for increased signs of infection--Bacteremia, Wounds Monitor assessment--CKD Continue previous wound care orders at discharge to right plantar foot, right lateral ankle, and right heel ulcer Wound care every 2 days to right great toe and right 4th toe ulcer: *Clean with Vashe. Top with Polymem [employer] and secure with a band aid. Assist with medication management and provide medication education Assist with glucose control Provide education on high risk fall precautions Instructions: Levofloxacin (Systemic), Sepsis, Adult (DC) Prescriptions: New levofloxacin 750 mg Tablet 750 mg PO Q24H Qty: 21 0RF Continued insulin aspart U-100 [Novolog U-100 Insulin aspart] 100 unit/mL Solution See Protocol SUBCUT ACHS Protocol: Custom Scale - Custom (Blank) Condition: Dose/Route: Instruction: Condition: Fingerstick Blood Glucose Dose/Route: Insulin Units Condition: 151-200mg/dl Dose/Route: 2 unit Condition: 201-250mg/dl Dose/Route: 4 units Condition: 251-300mg/dl Dose/Route: 6 units Condition: 301-350mg/dl Dose/Route: 8 units Condition: 351-400mg/dl Dose/Route: 10 units Condition: 401-450mg/dl Dose/Route: 12 units Condition: 451-500mg/dl Dose/Route: 14 units Condition: Greater than or = 500 mg/dl Instruction: Call Provider Condition: Custom Scale 1:___ Instruction: GIVE 1 UNIT OF ASPART FOR EVERY ___MG GLUCOSE Instruction: STARTING AT 150MG AT BG CHECKS Protocol Text: *If the corrective scale dose has been administered within the past 4 hours, do not use corrective scale again unless approved by prescriber* Rx Instructions: 151-200 2 units 201-250 4 units 251-300 6 units 301-350 8 units 351-400 10 units 401-450 12 units 451-500 14 units over [address] tamsulosin [Flomax] 0.4 mg Capsule 0.4 mg PO BID duloxetine 60 mg capsule,delayed release(DR/EC) 60 mg PO QHS meropenem 500 mg Recon Soln 0.5 g IV Q12H 40 Days Qty: 80 0RF sodium bicarbonate 650 mg Tablet 1,300 mg PO TID 30 Days Qty: 180 0RF nifedipine 60 mg tablet extended release 24hr 90 mg PO DAILY atorvastatin 10 mg tablet 10 mg PO HS clopidogrel 75 mg tablet 75 mg PO DAILY acarbose 100 mg Tablet 100 mg PO TID Levemir FlexTouch U100 Insulin 100 unit/mL (3 mL) insulin pen 42 unit SUBCUT DAILY Patient Comments: inject 30 units subcutaneously once daily melatonin 5 mg Tablet 5 mg PO HS PRN (Reason: Insomnia) potassium chloride 20 mEq Tablet Extended Release 20 meq PO DAILY folic acid 1 mg tablet 1 mg PO DAILY Patient Comments: take 1 tablet by mouth once daily furosemide 40 mg Tablet 40 mg PO BID@0800,1600 Qty: 0 0RF polyethylene glycol 3350 [Miralax] 17 gram Powder In Packet 17 g PO DAILY Qty: 0 0RF gabapentin 600 mg Tablet 600 mg PO QPM Qty: 0 0RF ammonium lactate 12 % lotion 1 applic TOPICAL DAILY Other Ambulatory Orders: Initiate Home Health (Routine) Timeframe: 20221024 Location: Determined by Patient Ordered By: Riya Sampson Follow Up: Riya Pitt MD [Active Staff] - 11/07/22 2:30 pm [facility],Services [Physician] - 10/31/22 11:00 am (Post hospital appointment. Please call to reschedule if needed.) Documented By: Riya Sampson DO 10/24/22 13 36 Signed By: <Electronically signed by Riya Sampson DO> 10/24/22 1348 [facility] Work Phone: Evaluation + Plan note No data available for this section [facility] Evaluation + Plan note Future Appointments Appointment Date:06/07/2022 08:15:00 AM Scheduled Provider:Kiko Corbett MD Location:[facility] Appointment Type:URO Office Visit Diagnostic Tests Pending * Basic Metabolic Panel 04/26/22 [facility] Evaluation + Plan note Future Appointments Appointment Date:09/12/2022 11:15:00 AM Scheduled Provider:Kiko Corbett MD Location:[facility] Appointment Type:URO Office Visit [facility] Evaluation + Plan note Future Appointments Appointment Date:09/13/2022 02:15:00 PM Scheduled Provider:Kiko Corbett MD Location:[facility] Appointment Type:URO Office Visit [facility] Evaluation + Plan note Future Appointments Appointment Date:12/26/2023 03:00:00 PM Scheduled Provider:Kiko Corbett MD Location:[facility] Appointment Type:URO [facility]No [facility] [place] Other Evaluation note* Diagnosis Onset Date Resolution Status Acute hyperkalemia acute TOM (acute kidney injury) ac [place] Anemia acute Anemia in chronic kidney disease (CKD) acute Cellulitis and abscess of right leg acute CKD (chronic kidney disease) stage 3, GFR 30-59 ml/min acute CKD (chronic kidney disease) stage 4, GFR 15-29 ml/min acute COVID-19 acute High anion gap metabolic acidosis acute Hydronephrosis, left acute Hydroureteronephrosis acute Hyperkalemia acute [id number] acute Lab test positive for detection of COVID-19 virus acute Leukocytosis acute Osteomyelitis of foot acute PAD (peripheral artery disease) acute PVD (peripheral vascular disease) acute Sepsis acute Type 2 diabetes mellitus wit h diabetic chronic kidney disease acute Type 2 diabetes mellitus with foot ulcer acute Diabetic foot ulcer chronic Anemia acute [facility] Work Phone: Evaluation note* Diagnosis Onset Date Resolution Status Anemia acute [facility] Work Phone: Evaluation note* Diagnosis Hydronephrosis, unspecified hydronephrosis type- [facility] Onset Date Resolution Status Anemia acute Anemia acute Chronic kidney disease, stage V acute CKD (chronic kidney disease) stage 4, GFR 15-29 ml/min acute Diabetic foot ulcer chronic Hydroureteronephrosis acute [id number] acute Leukocytosis acute Metabolic acidosis acute Osteomyelitis acute PVD (peripheral vascular disease) acute Diabetic foot ulcer acute Infected wound acute Diabetes chronic [facility] Work Phone: Evaluation note* Diagnosis Onset Date Resolution Status Anemia acute Anemia acute Chronic kidney disease, stage V acute CKD (chronic kidney disease) stage 4, GFR 15-29 ml/min acute Diabetic foot ulcer chronic Hydroureteronephrosis acute [id number] acute Leukocytosis acute Metabolic acidosis acute Osteomyelitis acute PVD (peripheral vascular disease) acute Anemia acute Chronic kidney disease, stage V acute Diabetic foot ulcer chronic Hydroureteronephrosis acute Hyperkalemia acute [id number] acute Infected wound acute Metabolic acidosis acute Osteomyelitis of foot acute PAD (peripheral artery disease) acute Diabetes chronic [facility] Work Phone: Evaluation note* Diagnosis Onset Date Resolution Status Anemia acute Chronic kidney disease, stage V acute CKD (chronic kidney disease) stage 4, GFR 15-29 ml/min acute Diabetic foot ulcer chronic Hydroureteronephrosis acute [id number] acute Leukocytosis acute Metabolic acidosis acute Osteomyelitis acute PVD (peripheral vascular disease) acute Anemia acute Chronic kidney disease, stage V acute Diabetic foot ulcer chronic Hydroureteronephrosis acute Hyperkalemia acute [id number] acute Infected wound acute Metabolic acidosis acute Osteomyelitis of foot acute PAD (peripheral artery disease) acute Diabetes chronic Anemia acute [facility] Work Phone: Evaluation note* Diagnosis Onset Date Resolution Status Anemia acute Chronic kidney disease, stage V acute CKD (chronic kidney disease) stage 4, GFR 15-29 ml/min acute Diabetic foot ulcer chronic Hydroureteronephrosis acute [id number] acute Leukocytosis acute Metabolic acidosis acute Osteomyelitis acute PVD (peripheral vascular disease) acute Anemia acute Chronic kidney disease, stage V acute Diabetic foot ulcer chronic Hydroureteronephrosis acute Hyperkalemia acute [id number] acute Infected wound acute Metabolic acidosis acute Osteomyelitis of foot acute PAD (peripheral artery disease) acute Diabetes chronic Anemia acute Anemia acute Bacteremia acute Diabetic foot ulcer acute [facility] Work Phone: Evaluation note* Diagnosis Onset Date Resolution Status Anemia acute Chronic kidney disease, stage V acute CKD (chronic kidney disease) stage 4, GFR 15-29 ml/min acute Diabetic foot ulcer chronic Hydroureteronephrosis acute [id number] acute Leukocytosis acute Metabolic acidosis acute Osteomyelitis acute PVD (peripheral vascular disease) acute Anemia acute Chronic kidney disease, stage V acute Diabetic foot ulcer chronic Hydroureteronephrosis acute Hyperkalemia acute [id number] acute Infected wound acute Metabolic acidosis acute Osteomyelitis of foot acute PAD (peripheral artery disease) acute Diabetes chronic Anemia acute Anemia acute Bacteremia acute Diabetic foot ulcer acute Infection due to Stenotrophomonas maltophilia acute Left against medical advice acute [facility] Work Phone: Evaluation note* Diagnosis Onset Date Resolution Status Anemia acute Chronic kidney disease, stage V acute CKD (chronic kidney disease) stage 4, GFR 15-29 ml/min acute Diabetic foot ulcer chronic Hydroureteronephrosis acute [id number] acute Leukocytosis acute Metabolic acidosis acute Osteomyelitis acute PVD (peripheral vascular disease) acute Anemia acute Chronic kidney disease, stage V acute Diabetic foot ulcer chronic Hydroureteronephrosis acute Hyperkalemia acute [id number] acute Infected wound acute Metabolic acidosis acute Osteomyelitis of foot acute PAD (peripheral artery disease) acute Diabetes chronic Anemia acute Bacteremia acute Diabetic foot ulcer acute Infection due to Stenotrophomonas maltophilia acute Anemia acute [facility] Work Phone: Evaluation note* Diagnosis Onset Date Resolution Status Anemia acute Chronic kidney disease, stage V acute Diabetic foot ulcer chronic Hydroureteronephrosis acute Hyperkalemia acute [id number] acute Infected wound acute Metabolic acidosis acute Osteomyelitis of foot acute PAD (peripheral artery disease) acute Diabetes chronic Anemia acute Bacteremia acute Diabetic foot ulcer acute Infection due to Stenotrophomonas maltophilia acute Anemia acute [facility] Work Phone: Evaluation note* Diagnosis Onset Date Resolution Status Anemia acute Bacteremia acute Diabetic foot ulcer acute Infection due to Stenotrophomonas maltophilia acute Anemia acute [facility] Work Phone: Evaluation note* Diagnosis Onset Date Resolution Status Anemia acute Chronic renal insufficiency, stage IV (severe) acute [facility] Work Phone: History and physical note Author Chris Mccarthy [facility] November 14, 2021 9:37pm Note Date/Time November 14, 2021 9: 16pm [facility] [address] [place] [address] Hospitalist H&P Signed Patient: Simon Lott MR#: [id number] : 1950 Acct:[id number] Age/Sex: 71 / M Adm Date: 2 Loc: Room: [address] [place] [address] Type: ADM IN Attending Dr: Chris Mccarthy DO Copies to: Maye Murray,DO Chris Mccarthy, DO~ HPI DATE OF EXAMINATION: 11/14/21 CHIEF COMPLAINT: sent from SNF for fever. Septic diabetic foot wound. HISTORY OF PRESENT ILLNESS: This is a 71-year-old man who was [facility] the [facility] today due to fever. In the ER he was found to have acute kidney injury, hyperkalemia with potassium 6.1, significantly elevated white blood count, sinustachycardia 120 bpm, evidence of sepsis, and diabetic foot infection with osteolytic changes on the fifth metatarsal and infection on the plantar midfoot. He has a past medical history of hypertension, diabetes, chronic kidney disease,alcoholic liver disease, diabetic foot ulcer, peripheral vascular disease, old stroke, hepatitis C, and history of kidney stones. In the ER he was treated with generous IV fluids. He got vancomycin and Zosyn. He did get Lokelma and insulin for the elevated potassium level. Looking at past cultures I did recommend that we transition away from Zosyn due to some intermediate resistance in the past to meropenem which would be susceptible to cultures that has had over the last year or so. In his hospital room right now he said that he felt fine yesterday but then wokeup this morning feeling extremely chilled. He had shaking chills. He notes a fever. He notes he is feeling very sick. He describes that a manager freelance was doing some debridement on the wounds on his right foot within the last week. Hesays he has had these wounds on that right foot for very long time. Right now he indicates it is feeling better although he did have a mild fever so the nursein the room was going to give him Tylenol. He denies any nausea or upset stomach. No chest pain or palpitations. No shortness of breath or cough. No fevers or chills. Sanchez catheter was placed. He is draining urine which looks fairly nicely clear and yellow without any blood or purulence. He denies any diarrhea or constipation. The entirety of his right leg is warm to touch and more swollen than his left leg. His left foot has a postsurgical appearance of transmetatarsal amputation that was a while ago. His right foot has a wound at the base of the fifth metatarsal which is actually fairly clean. I do not smell any foul odor. Thereis no purulent drainage. In the wound bed itself seems to be nicely clean. He also has a wound that is concerning at the heel which also looks clean. No drainage of foul or purulent fluid was expressed when I palpated around this. However the right foot is massively chronically swollen with extremely thick hyperkeratotic skin all over soles impossible to assess where there may or may not be infection present. An MRI will be required. Review of Systems Review of Systems Review of systems: 10 systems are reviewed and are negative except as mentioned elsewhere in the documentation. PMFSH Vaccinated for COVID-19?: Yes Medical History (Updated 11/14/21 @ 21:34 by Chris Mccarthy DO) Alcohol abuse Amputated toe of left foot ALL 5 TOES Anemia BPH (benign prostatic hyperplasia) Cellulitis of left foot Chronic foot ulcer Diabetes Foot drop Hepatitis C HTN (hypertension) Hyperlipidemia Major depressive disorder Neuropathy PVD (peripheral vascular disease) Ruptured spleen Stroke Surgical History (Updated 11/14/21 @ 21:32 by Chris Mccarthy DO) History of appendectomy History of transmetatarsal amputation of left foot Family History Mother Diabetes Father Diabetes Sister Diabetes Brother Diabetes Social History Smoking Status: Current some day smoker Tobacco Type: cigarettes Substance Use Type: None Substance Abuse Comment: NONE X 7 MONTHS Meds Medications and Allergies Allergies codeine Allergy (Verified 05/18/21 09:55) Unknown Reaction lisinopril Allergy (Verified 05/18/21 09:55) Swelling of Lip/Tongue/Throat Home Medications tamsulosin 0.4 mg capsule (Flomax) 0.4 mg PO BID 12/25/16 [History Confirmed 11/14/21] gabapentin 800 mg tablet (Neurontin) 800 mg PO TID 01/26/20 [History Confirmed 11/14/21] acetaminophen 325 mg tablet (Tylenol) 650 mg PO Q4H PRN Pain 03/21/20 [History Confirmed 11/14/21] alpha lipoic acid 300 mg capsule 200 mg PO DAILY 03/21/20 [History Confirmed 11/14/21] duloxetine 20 mg capsule,delayed release 60 mg PO BID 03/21/20 [History Confirmed 11/14/21] insulin aspart U-100 100 unit/mL subcutaneous solution (Novolog U-100 Insulin aspart) See Protocol subcut ACHS 03/21/20 [History Confirmed 11/14/21] amitriptyline 10 mg tablet 10 mg PO HS 05/25/20 [History Confirmed 11/14/21] ammonium lactate 12 % topical cream 1 applic topical QSHIFT 05/25/20 [History Confirmed 11/14/21] atorvastatin 10 mg tablet 10 mg PO HS 05/25/20 [History Confirmed 11/14/21] clopidogrel 75 mg tablet 75 mg PO DAILY 05/25/20 [History Confirmed 11/14/21] acarbose 100 mg tablet 100 mg PO TID 05/18/21 [History Confirmed 11/14/21] ascorbic acid (vitamin C) 500 mg tablet 500 mg PO DAILY 05/18/21 [History Confirmed 11/14/21] ferrous sulfate 324 mg (65 mg iron) tablet,delayed release 325 mg PO QMWF 05/18/21 [History Confirmed 11/14/21] insulin detemir U-100 100 unit/mL (3 mL) subcutaneous pen (Levemir FlexTouch U- 100 Insulin) 42 unit subcut DAILY 05/18/21 [History Confirmed 11/14/21] losartan 25 mg tablet 25 mg PO DAILY 05/18/21 [History Confirmed 11/14/21] melatonin 5 mg tablet 5 mg PO HS PRN Insomnia 05/18/21 [History Confirmed 11/14/21] potassium chloride 20 mEq tablet,extended release 20 meq PO DAILY 05/18/21 [History Confirmed 11/14/21] folic acid 1 mg tablet 1 mg PO DAILY 11/14/21 [History Confirmed 11/14/21] loteprednol etabonate 0.5 % eye drops,suspension 1 drp Eye-Left QID 11/14/21 [History Confirmed 11/14/21] sodium hypochlorite 0.25 % solution (Dakin's Solution) 1 irrig topical BID 11/14/21 [History Confirmed 11/14/21] Exam Physical Exam Vital Signs: Temp Pulse Resp BP Pulse Ox O2 Del Method 99.5 F H 120 H 24 176/93 H 96 Room Air 11/14/21 20:00 11/14/21 20:00 11/14/21 20:00 11/14/21 20:00 11/14/21 20:00 11/14/21 20:00 Narrative: GEN: Awake, alert, generally nontoxic Head: Normal Cephalic, Atraumatic. Eyes: Conjunctiva and sclera clear bilaterally. Nose: External nose and nares normal bilaterally. Mouth: Lips and tongue normal. Neck: No JVD. No thyromegaly. No lymphadenopathy. Lungs: Clear to auscultation bilaterally, no wheezing, no crackles. Heart: Regular rate and rhythm, no murmurs, rubs, or gallops. Abdomen: Soft, normal bowel sounds, no rigidity, guarding, or acute peritoneal signs. Extremities: Left lower extremity has a old appearing transmetatarsal amputationon the left foot. There is a small amount of thickened skin on it but no significant wounds. Right lower extremity is warm and more edematous throughout compared to the leftlower extremity. Left foot itself has extremely thick longstanding hyperkeratotic skin all over it.The entirety of his right leg is warm to touch and more swollen than his left leg. His left foot has a postsurgical appearanceof transmetatarsal amputation that was a while ago. His right foot has a wound at the base of the fifth metatarsal which is actually fairly clean. I do not smell any foul odor. There is no purulent drainage. In the wound bed itself seems to be nicely clean. He also has a wound that is concerning at the heel which also looks clean. No drainage of foul or purulent fluid was expressed when I palpated around this. However the right foot is massively chronically swollen with extremely thick hyperkeratotic skin all over soles impossible to assess where there may or may not be infection present. An MRI will be required. Psychiatric: Calm. Astonishingly polite and pleasant. Neuro: Probably with a moderate amount of chronic dementia but no gross focal orlateralizing deficits. : Sanchez catheter drains a fair amount of nice clear yellow urine without frankpurulence or really any noticeable blood. Results Lab Results Labs: Laboratory Last Values Corrected WBC 19.8 X10E3/uL (4.1-10.5) H 11/14/21 13:00 Uncorrected WBC Count 19.8 x10E3/uL (4.5-11.0) H 11/14/21 13:00 RBC 3.18 x10E6/uL (3.90-5.60) L 11/14/21 13:00 Hgb 8.7 g/dL (13.0-17.0) L 11/14/21 13:00 Hct 27.9 % (38.8-50.0) L 11/14/21 13:00 MCV 87.6 fl (83.5-101) 11/14/21 13:00 MCH 27.4 pg (27.5-35.2) L 11/14/21 13:00 MCHC 31.3 g/dL (32.5-35.6) L 11/14/21 13:00 RDW 18.3 % (12.0-14.8) H 11/14/21 13:00 Plt Count 290 x10E3/uL (150-450) 11/14/21 13:00 MPV 10.0 fl (6.6-10.1) 11/14/21 13:00 Neut % (Auto) 97.0 % (.) 11/14/21 13:00 Lymph % (Auto) 3.0 % (.) 11/14/21 13:00 [place] % (Auto) 4.0 % (.) 11/14/21 13:00 Eos % (Auto) N/A 11/14/21 13:00 Baso % (Auto) N/A 11/14/21 13:00 Neut # (Auto) N/A 11/14/21 13:00 Lymph # (Auto) N/A 11/14/21 13:00 [place] # (Auto) N/A 11/14/21 13:00 Eos # (Auto) N/A 11/14/21 13:00 Baso # (Auto) N/A 11/14/21 13:00 Nucleated RBC % (auto) 0.1 % (0-0.5) 11/14/21 13:00 Platelet Estimate Normal (Normal) 11/14/21 13:00 Plt Morphology Comment Normal (Normal) 11/14/21 13:00 RBC Morphology N/A 11/14/21 13:00 Hypochromasia Slight 11/14/21 13:00 Poikilocytosis Moderate 11/14/21 13:00 Anisocytosis Moderate 11/14/21 13:00 Target Cells Slight 11/14/21 13:00 Ovalocytes Slight 11/14/21 13:00 PT 13.4 Seconds (9.0-12.9) H 11/14/21 13:00 INR 1.2 11/14/21 13:00 APTT 34.5 Seconds (25.1-36.5) 11/14/21 13:00 Sample Site Venous 11/14/21 13:29 VBG pH 7.28 (7.32-7.43) L 11/14/21 13:29 VBG pCO2 39.3 mmHg (38.0-50.0) 11/14/21 13:29 VBG pO2 43.7 mmHg (35.0-45.0) 11/14/21 13:29 VBG HCO3 18.2 mmol/L (23.0-29.0) L 11/14/21 13:29 VBG Total CO2 19.4 mmol/L (24.0-29.0) L 11/14/21 13:29 VBG O2 Saturation 75.2 % (73.0-76.0) 11/14/21 13:29 VBG O2 Content 4.7 mmol/L (6.6-9.7) L 11/14/21 13:29 VBG Base Excess -7.9 mmol/L (-3.0-3.0) L 11/14/21 13:29 FiO2 21 % 11/14/21 13:29 Critical Value 11/14/21 13:29 PHA Creatinine Clear 25.76 11/14/21 17:57 Sodium 135 mmol/L (136-146) L 11/14/21 17:57 Potassium 5.6 mmol/L (3.5-5.1) H 11/14/21 17:57 Chloride 108 mmol/L (95-114) 11/14/21 17:57 Carbon Dioxide 17.2 mmol/L (22.0-30.0) L 11/14/21 17:57 BUN 34 mg/dL (9-23) H 11/14/21 17:57 Creatinine 3.51 mg/dL (0.64-1.27) H 11/14/21 17:57 Est GFR ( Amer) 21 mL/Min 11/14/21 17:57 Est GFR (Non-Af Amer) 17 mL/Min 11/14/21 17:57 Glucose 108 mg/dL (70-100) H 11/14/21 17:57 POC Glucose 97 mg/dl 11/14/21 17:03 POC Glucose Comment Glu2: cleaned meter 11/14/21 17:03 Lactic Acid 1.9 mmol/L (0.5-2.2) 11/14/21 13:00 Calcium 8.1 mg/dL (8.2-10.2) L 11/14/21 17:57 Total Bilirubin 0.6 mg/dL (0.3-1.2) 11/14/21 13:00 AST 30 U/L (10-42) 11/14/21 13:00 ALT 18 U/L (10-60) 11/14/21 13:00 Alkaline Phosphatase 143 U/L (32-92) H 11/14/21 13:00 Total Protein 8.2 gm/dL (6.1-7.9) H 11/14/21 13:00 Albumin 2.4 gm/dL (3.2-5.5) L 11/14/21 13:00 Globulin 5.8 gm/dL 11/14/21 13:00 Albumin/Globulin Ratio 0.4 11/14/21 13:00 Urine Color Yellow (Yellow) 11/14/21 14:36 Urine Appearance Clear (Clear) 11/14/21 14:36 Urine pH 6.0 (5.0-9.0) 11/14/21 14:36 Ur Specific [place] 1.017 (1.001-1.030) 11/14/21 14:36 Urine Protein >=1000 mg/dL (Negative) H 11/14/21 14:36 Urine Glucose (UA) Normal mg/dL (Normal) 11/14/21 14:36 Urine Ketones Negative (Negative) 11/14/21 14:36 Urine Occult Blood Negative (Negative) 11/14/21 14:36 Urine Nitrite Negative (Negative) 11/14/21 14:36 Urine Bilirubin Negative (Negative) 11/14/21 14:36 Urine Urobilinogen Normal mg/dL (Normal) 11/14/21 14:36 Ur Leukocyte Esterase Negative (Negative) 11/14/21 14:36 Urine RBC 3-4 /HPF (0-4) 11/14/21 14:36 Urine WBC 1-2 /HPF (0-4) 11/14/21 14:36 Ur Squamous Epith Cells 0-1 /HPF (0-2) 11/14/21 14:36 Urine Bacteria None seen (None Seen) 11/14/21 14:36 Hyaline Casts 0-8 /LPF (0-8) 11/14/21 14:36 COVID-19 PCR Interp N/A 11/14/21 15:31 SARS Antigen (LFIA) Negative (Negative) 11/14/21 13:30 Microbiology Results Micro: Microbiology - Results from entire visit 11/14/21 13:30 Nasal SARS Antigen (LFIA) - Final ABG Interpretation ABG results: 11/14/21 13:29 VBG pH 7.28 L VBG pCO2 39.3 VBG pO2 43.7 VBG HCO3 18.2 L VBG Total CO2 19.4 L VBG O2 Saturation 75.2 VBG Base Excess -7.9 L A&P - Hospitalist Assessment/Plan (1) Sepsis: (2) Diabetic foot ulcer: (3) TOM (acute kidney injury): (4) CKD (chronic kidney disease) stage 3, GFR 30-59 ml/min: (5) Type 2 diabetes mellitus with diabetic chronic kidney disease: (6) Osteomyelitis of foot: (7) Acute hyperkalemia: (8) PVD (peripheral vascular disease): Plan Assessment: Condition with sepsis, significant leukocytosis, acute kidney injury, and resultant hyperkalemia, with acute kidney injury on top of chronic kidney disease stage III, likely due to spread of infection from wounds on his right foot. X-ray of the emergency room does show bony destruction on the fifth metatarsal suggestive of osteomyelitis. The foot itself is extremely difficult to examine due to chronic massive edema and hyperkeratotic skin. Plan: Hospital mission, inpatient status. Continue broad-spectrum antibiotics with vancomycin dosed by pharmacy and meropenem. Consult to podiatry. Consult vascular surgery. MRI of the right foot to further delineate where infection may be present. Continue IV fluids with normal saline 100 mL an hour. Hyperkalemia has improved. Consult to nephrology. Sanchez catheter was placed for monitoring of urine output. DVT prophylaxis will be with heparin. His legs have chronic skin changes which will not tolerate sleeve compression device placement. Quality Measures SEPSIS Tissue perfusion reassessment (select if applicable): Tissue perfusion reassessed after bolus given FOCUSED EXAM Capillary refill: Capillary refill < 3 seconds Peripheral pulses: Pulses present bilaterally Skin color/condition: Skin normal for ethnicity Urinary output: Increased output Documented By: Chris Mccarthy DO [id number] Signed By: <Electronically signed by Chris Mccarthy DO> 11/14/212136 [facility] Work Phone: History and physical note Author Kevin Steinberg [facility] September 10, 2022 5:41pm Note Date/Time September 10, 2022 5:10p m [facility] [address] [place] [address] Hospitalist H&P Signed Patient: Simon Lott MR#: [id number] : 1950 Acct:[id number] Age/Sex: 72 / M Adm Date: 3 Loc: Room: [address] [place] [address] Type: ADM IN Attending Dr: Kevin Steinberg MD Copies to: MD Mervat Whipple, BOAT OFFICER-C~ HPI DATE OF EXAMINATION: 09/10/22 CHIEF COMPLAINT: right foot wound drainage HISTORY OF PRESENT ILLNESS: Patient is a 72-year-old male with a past medical history of hypertension, type 2 diabetes with diabetic neuropathy, dyslipidemia, multiple chronic foot ulcers who presented to the emergency department today for a diabetic foot ulcer. Patient was recently admitted to the hospital for similar complaints, found to have osteomyelitis and MRSA bacteremia. He has seen the patient at the time andrecommended right foot amputation and vascular surgery consultation for evaluation of PAD, however patient left AGAINST MEDICAL ADVICE. States that he has been getting regular wound care by home health at home since he left the hospital. Home health nurse recommended him to come to the emergency departmenttoday due to purulent drainage from the right foot wound. Patient denies any pain in the right foot. He is usually wheelchair- bound. Denies any fever or chills, night sweats, nausea, vomiting, abdominal pain, urinary complaints. Review of Systems Review of Systems All other systems reviewed & are negative unless noted below or in HPI PMFSH Vaccinated for COVID-19?: Yes Medical History Alcohol abuse Amputated toe of left foot ALL 5 TOES Anemia Anxiety BPH (benign prostatic hyperplasia) Cellulitis of left foot Chronic foot ulcer Depression Diabetes Foot drop Hepatitis C HTN (hypertension) Hyperlipidemia Hypertension Kidney stones Major depressive disorder Neuropathy PVD (peripheral vascular disease) Right foot infection Ruptured spleen Stroke Ureteral stone with hydronephrosis Surgical History History of appendectomy History of phacoemulsification of cataract of left eye with intraocular lens implantation History of transmetatarsal amputation of left foot Hx of nephrostomy Family History Mother Diabetes Father Diabetes Sister Diabetes Brother Diabetes Social History Smoking Status: Current every day smoker Tobacco Type: cigarettes Substance Use Type: None Substance Abuse Comment: NONE X 7 MONTHS Social History Comments: [facility] Meds Medications and Allergies Allergies codeine Allergy (Verified 09/10/22 10:29) Unknown Reaction lisinopril Allergy (Verified 09/10/22 10:29) Swelling of Lip/Tongue/Throat Home Medications acetaminophen 325 mg tablet (Tylenol) 650 mg PO Q4H PRN Pain 03/21/20 [History Confirmed 08/29/22] alpha lipoic acid 300 mg capsule 200 mg PO DAILY 03/21/20 [History Confirmed 08/29/22] insulin aspart U-100 100 unit/mL subcutaneous solution (Novolog U-100 Insulin aspart) See Protocol subcut ACHS 03/21/20 [History Confirmed 08/29/22] ammonium lactate 12 % topical cream 1 applic topical QSHIFT 05/25/20 [History Confirmed 08/29/22] atorvastatin 10 mg tablet 10 mg PO HS 05/25/20 [History Confirmed 09/10/22] clopidogrel 75 mg tablet 75 mg PO DAILY 05/25/20 [History Confirmed 08/29/22] acarbose 100 mg tablet 100 mg PO TID 05/18/21 [History Confirmed 09/10/22] ascorbic acid (vitamin C) 500 mg tablet 500 mg PO DAILY 05/18/21 [History Confirmed 08/29/22] ferrous sulfate 324 mg (65 mg iron) tablet,delayed release 325 mg PO QMWF 05/18/21 [History Confirmed 08/29/22] insulin detemir U-100 100 unit/mL (3 mL) subcutaneous pen (Levemir FlexTouch U- 100 Insulin) 40 unit subcut DAILY 05/18/21 [History Confirmed 09/10/22] melatonin 5 mg tablet 5 mg PO HS PRN Insomnia 05/18/21 [History Confirmed 08/29/22] potassium chloride 20 mEq tablet,extended release 20 meq PO DAILY 05/18/21 [History Confirmed 08/29/22] folic acid 1 mg tablet 1 mg PO DAILY 11/14/21 [History Confirmed 09/10/22] Saccharomyces boulardii 250 mg capsule (Florastor) 250 mg PO BID.WITH.MEALS #0 caps 11/21/21 [Rx Confirmed 08/29/22] furosemide 40 mg tablet 40 mg PO BID@0800,1600 #0 tabs 11/21/21 [Rx Confirmed 09/10/22] gabapentin 600 mg tablet 600 mg PO QPM #0 tabs 11/21/21 [Rx Confirmed 09/10/22] losartan 25 mg tablet 50 mg PO DAILY #30 tabs 11/21/21 [Rx Confirmed 08/29/22] nifedipine 30 mg tablet,extended release 24 hr 30 mg PO DAILY #0 tabs 11/21/21 [Rx Confirmed 08/29/22] polyethylene glycol 3350 17 gram oral powder packet (Miralax) 17 g PO DAILY #0 ea 11/21/21 [Rx Confirmed 08/29/22] sodium bicarbonate 650 mg tablet 650 mg PO TID #0 tabs 11/21/21 [Rx Confirmed 08/29/22] tamsulosin 0.4 mg capsule (Flomax) 0.4 mg PO BID 07/17/22 [History Confirmed 09/10/22] cephalexin 500 mg capsule 500 mg PO Q6H 7 days #28 caps 08/27/22 [Rx Confirmed 08/29/22] sulfamethoxazole 800 mg-trimethoprim 160 mg tablet (Bactrim DS) 1 tab PO Q12H 7 days #14 tabs 08/27/22 [Rx Confirmed 08/29/22] duloxetine 60 mg capsule,delayed release 60 mg PO BID 09/10/22 [History Confirmed 09/10/22] Exam Physical Exam Vital Signs: Temp Pulse Resp BP Pulse Ox O2 Del Method 97.5 F L 95 H 16 203/89 H 100 Room Air 09/10/22 16:20 09/10/22 16:20 09/10/22 16:20 09/10/22 16:20 09/10/22 16:20 09/10/22 16:20 Narrative: General: Awake, alert, oriented x3 not in acute distress HEENT: Normocephalic, atraumatic, PERRLA, normal mucosa Cardiovascular: Regular rate and rhythm , S1-S2 heard, no murmurs or gallops Lungs: No wheezing or rhonchi heard Gastrointestinal: Soft, nontender, bowel sounds heard Extremities: 2 to 4 cm diabetic foot ulcers noted on the lateral aspect of the right foot on the plantar side, also noted on the right calcaneal area, peripheral pulses not dopplerable Neurological: no sensory or motor deficit Skin: Dry and warm, no rashes or lesions Psych: Normal mood and affect Results Lab Results Labs: Laboratory Last Values Corrected WBC 12.2 X10E3/uL (4.1-10.5) H 09/10/22 11:50 Uncorrected WBC Count 12.2 x10E3/uL (4.1-10.5) H 09/10/22 11:50 RBC 3.17 X10E6/uL (3.90-5.60) L 09/10/22 11:50 Hgb 9.5 g/dL (13.0-17.0) L 09/10/22 11:50 Hct 29.9 % (38.8-50.0) L 09/10/22 11:50 MCV 94.4 fl (83.5-101) 09/10/22 11:50 MCH 30.0 pg (27.5-35.2) 09/10/22 11:50 MCHC 31.8 g/dL (32.5-35.6) L 09/10/22 11:50 RDW 16.3 % (12.0-14.8) H 09/10/22 11:50 Plt Count 214 x10E3/uL (150-450) 09/10/22 11:50 MPV 10.3 fl (6.6-10.1) H 09/10/22 11:50 Neut % (Auto) 45.4 % (.) 09/10/22 11:50 Lymph % (Auto) 42.1 % (.) 09/10/22 11:50 [place] % (Auto) 8.6 % (.) 09/10/22 11:50 Eos % (Auto) 3.5 % (.) 09/10/22 11:50 Baso % (Auto) 0.4 % (.) 09/10/22 11:50 Nucleat RBC Rel Count 0.1 /100 WBC (0-0.5) 09/10/22 11:50 Neut # (Auto) 5.5 x10E3/uL (1.8-7.7) 09/10/22 11:50 Lymph # (Auto) 5.1 x10E3/uL (1.00-4.8) H 09/10/22 11:50 [place]ster # (Auto) 1.0 x10E3/uL (0.0-0.8) H 09/10/22 11:50 Eos # (Auto) 0.4 x10E3/uL (0.0-0.45) 09/10/22 11:50 Baso # (Auto) 0.0 x10E3/uL (0.0-0.2) 09/10/22 11:50 Monocyte Dist Width 19.06 % (0.00-20.00) 09/10/22 11:50 ESR 122 mm/hr (0-19) H 09/10/22 11:50 PT 12.6 Seconds (9.0-12.9) 09/10/22 11:50 INR 1.1 09/10/22 11:50 APTT 30.9 Seconds (25.1-36.5) 09/10/22 11:50 PHA Creatinine Clear 19.50 09/10/22 11:50 Sodium 134 mmol/L (136-145) L 09/10/22 11:50 Potassium 5.2 mmol/L (3.5-5.1) H 09/10/22 11:50 Chloride 107 mmol/L (98-107) 09/10/22 11:50 Carbon Dioxide 19.7 mmol/L (21.0-31.0) L 09/10/22 11:50 Anion Gap 12.5 mEq/L (6.0-15.0) 09/10/22 11:50 BUN 41 mg/dL (7-25) H 09/10/22 11:50 Creatinine 4.41 mg/dL (0.70-1.30) H 09/10/22 11:50 Est GFR (CKD-EPI) 13.476 mL/Min 09/10/22 11:50 Glucose 130 mg/dL (70-100) H 09/10/22 11:50 Lactic Acid 1.3 mmol/L (0.5-2.2) 09/10/22 11:50 Calcium 8.5 mg/dL (8.6-10.3) L 09/10/22 11:50 Total Bilirubin 0.3 mg/dl (0.3-1.0) 09/10/22 11:50 C-Reactive Prot, Quant 0.8 mg/dL (0.0-0.5) H 09/10/22 11:50 Urine Color Yellow (Yellow) 09/10/22 15:00 Urine Appearance Clear (Clear) 09/10/22 15:00 Urine pH 6.0 (5.0-9.0) 09/10/22 15:00 Ur Specific [place] 1.012 (1.001-1.030) 09/10/22 15:00 Urine Protein 300 mg/dL (Negative) H 09/10/22 15:00 Urine Glucose (UA) Normal mg/dL (Normal) 09/10/22 15:00 Urine Ketones Negative (Negative) 09/10/22 15:00 Urine Occult Blood Trace (Negative) H 09/10/22 15:00 Urine Nitrite Negative (Negative) 09/10/22 15:00 Urine Bilirubin Negative (Negative) 09/10/22 15:00 Urine Urobilinogen Normal mg/dL (Normal) 09/10/22 15:00 Ur Leukocyte Esterase Negative (Negative) 09/10/22 15:00 Urine RBC 1-2 /HPF (0-4) 09/10/22 15:00 Urine WBC None seen /HPF (0-4) 09/10/22 15:00 Ur Squamous Epith Cells None seen /HPF (0-2) 09/10/22 15:00 Urine Bacteria None seen (None Seen) 09/10/22 15:00 Hyaline Casts None seen /LPF (0-8) 09/10/22 15:00 Assessment & Plan Assessment/Plan (1) Infected wound: (2) Chronic kidney disease, stage V: (3) Diabetic foot ulcer: (4) Osteomyelitis of foot: (5) PAD (peripheral artery disease): Plan Patient will be admitted for further evaluation management Patient is hemodynamically stable and is afebrile Labs showed mild leukocytosis with kidney functions at his baseline Obtain CRP Wound cultures, blood culture sent to the ED We will start vancomycin, meropenem based on prior cultures Consult infectious disease, podiatry, vascular surgery Continue home meds once verified DVT prophylaxis CODE STATUS full code IP vs OBS Justification Based on differential dx, clinical care plan, and risk of adverse events, if untreated, in my clinical judgement this patient requires an acute care setting as: INPATIENT because of an expectation of an over 2 midnight stay. Estimated length of stay (# of days): 3 Documented By: Kevin Steinberg MD 09/10/22 1705 Signed By: <Electronically signed by Kevin Steinberg MD> 09/10/22 1741 [facility] Work Phone: History and physical note Author Riya Sampson [facility] October 22, 2022 9:37pm Note Date/Time October 22, 2022 9:37 pm [facility] [address] [place] [address] Hospitalist H&P Signed Patient: Simon Lott MR#: [id number] : 1950 Acct:[id number] Age/Sex: 72 / M Adm Date: 3 Loc: Room: [address] [place] [address] Type: ADM IN Attending Dr: Riya Sampson DO Copies to: Mervat Santiago [employer]AT OFFICER-C Riya Sampson DO~ HPI DATE OF EXAMINATION: 10/22/22 CHIEF COMPLAINT: Positive blood cultures. HISTORY OF PRESENT ILLNESS: This patient is a 72-year-old diabetic male with chronic kidney disease stage V who presents to the emergency department after being asked to return for positive blood cultures previously. Of note he was hospitalized here for cellulitis/osteomyelitis resulting from a diabetic foot ulcer in early September thisyear. He was discharged 09/12/2022 on 6 weeks of vancomycin and meropenem via PICC line. The patient then returned to the ER on 10/13/2022 with right-sided foot pain. He had leukocytosis 13.8 at that time and blood cultures were drawn. He was discharged and instructed to continue his IV antibiotics as previously prescribed. 1 of 2 blood cultures from that ER visit returned positive and he was called on multiple occasions to come back to the ER. The patient finally returned to the ER yesterday 7/17 however left AGAINST MEDICAL ADVICE prior to receiving any treatment. He returns again to the ER today and is now agreeable to have this adequately treated as an inpatient. Presenting vital signs in the ER today reveal a temperature 99.2 ?F, heart rate 96 bpm, blood pressure 160/70, respiratory rate of 18, 96% oxygen saturation on room air. Labs show persistent leukocytosis of 11.3, chronic anemia H&H 7.7/23.9% and 8% eosinophils. Of note this elevation in eosinophils has been present on labs dating back to September of last year. Labs reveal chemistries consistent with baseline CKD BUN/creatinine 26/2.92, hypoglycemia of 65, mild alkaline phosphatase elevation 147. Case was discussed with infectious disease Dr. Pitt in the ER who recommended the patient be admitted as an inpatient for effective treatment of ongoing bacteremia. Blood cultures were sent today in the ER and reportedly these were not drawn from the PICC line. Blood cultures were sent today and are pending. Yesterday's blood cultures showpositivity for stenotrophomonas maltophilia in 1 of 2 cultures, notably the culture drawn from PICC line. The same organism was noted from left arm cultures done 10/13/2022 and shows sensitivity to Bactrim and ceftazidime. Cultures from the right foot ulcer done 10/13/2022 revealed multidrug-resistant Pseudomonas aeruginosa and Marichuy species. This Pseudomonas is reportedly sensitive to ceftazidime/avibactam. Just to cover for both of these the patientwas started on ceftazidime in the ER and admitted [facility] floor for further management and treatment. Physical Examination: GENERAL APPEARANCE: Alert, up in bed AAOx3 HEENT: NCAT, MMM NECK: Neck soft w/o masses, no JVD CARDIAC: Normal S1 and S2. No S3, S4 or murmurs. LUNGS: Clear to auscultation anteriorly ABDOMEN: Positive bowel sounds. Soft, nontender. No guarding or signs of an acute abdomen EXTREMITIES: No clubbing, cyanosis. Large lymphedematous lower extremities bilaterally, appropriate dressing in place to right lower extremity NEUROLOGICAL: No focal deficits PSYCHIATRIC: Appropriate mood and affect Assessment and plan: 1. Stenotrophomonas maltophilia bacteremia Low-grade fever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 itself is extremely difficult to examine due to chronic massive edema and hyperkeratotic skin. Plan: Hospital mission, inpatient status. Continue broad-spectrum antibiotics with vancomycin dosed by pharmacy and meropenem, continue until cultures finalize Podiatry consult pending, vascular surgery recommends right lower foot amputation patient was reluctant to accept this and requested a second opinion MRI of the right foot complete, read pending Continue IV fluids with normal saline 100 mL an hour. Hyperkalemia has improved. Giving bicarb therapy per nephrology Sanchez catheter was placed for monitoring of urine output. DVT prophylaxis with subcu heparin Documented By: Deo Bernabe DO 11/15/21 1454 Signed By: <Electronically signed by Deo Bernabe DO> 11/15/21 1459 [facility] Work Phone: Progress note Author Deo Bernabe [facility] November 16, 2021 12:22pm Note Date/Time November 16, 2021 12 :21pm [facility] [address] [place] [address] Hospitalist Progress Note Signed Patient: Simon Lott MR#: [id number] : 1950 Acct:[id number] Age/Sex: 71 / M Adm Date: 2 Loc: 4 Room: [id number] Type: ADM IN Attending Dr: Deo Bernabe DO Copies to: ~ Date of Service: 11/16/2021 Subjective Subjective Narrative: Interviewed examined at bedside, denies any complaints overnight. States he is ready to go home. Exam Physical Exam Vital Signs: Temp Pulse Resp BP Pulse Ox O2 Del Method 98.1 F 103 H 18 175/98 H 99 Room Air 11/16/21 11:07 11/16/21 11:07 11/16/21 11:07 11/16/21 11:07 11/16/21 11:07 11/16/21 11:07 Narrative: General: awake alert, no acute distress HEENT: head atraumatic, normocephalic, moist mucous membranes, normal nose and ears, no throat lesions, normal conjunctiva Neck: supple no masses, no lymphadenopathy CVS: regular rate and rhythm, no murmurs or gallops Respiratory: clear to auscultation bilaterally, no wheezing or crackles, symmetric expansion GI: soft, nondistended, nontender, positive bowel sounds with no organomegaly Extremity: moves all extremities, no restrictions of movements, no calf tenderness, RLE edema, right foot is wrapped. Dressing CDI. Neuro: AOx3, CN II-VII intact. Moves all extremities in all planes of motion. Skin: dry, intact no rashes or lesions Objective Lab Results CBC & Chem 7: 11/16/21 06:30 11/16/21 06:30 Microbiology Results Microbiology 11/14/21 14:36 Clean Void Midstream Urine Culture - Final No Growth 2 Days 11/14/21 13:23 Blood - Right Hand Blood Culture - Preliminary No Growth 1 Day 11/14/21 13:00 Blood - Right Antecubital Blood Culture - Preliminary No Growth 1 Day Meds Allergies and Active Meds Allergies codeine Allergy (Verified 05/18/21 09:55) Unknown Reaction lisinopril Allergy (Verified 05/18/21 09:55) Swelling of Lip/Tongue/Throat Active Meds: Active Medications Generic Name Dose Route Start Last Admin Trade Name Freq PRN Reason Stop Dose Admin Acarbose 100 mg 11/15/21 08:00 11/16/21 09:22 Acarbose 50 Mg Tablet PO 11/15/22 07:59 100 mg TID.WITH.MEALS JULIANN Administration Acetaminophen 650 mg 11/14/21 17:42 11/15/21 18:15 Acetaminophen 325 Mg Tablet PO 11/14/22 17:41 650 mg Q4H PRN Administration Pain Amitriptyline HCl 10 mg 11/14/21 22:00 11/15/21 21:56 Amitriptyline 10 Mg Tablet PO 11/14/22 21:59 10 mg HS JULIANN Administration Ammonium Lactate 1 applic 11/14/21 22:00 11/16/21 05:42 Ammonium Lactate 12% Lot 226 Gm Bottle TOPICAL 11/14/22 21:59 1 applic QSHIFT JULIANN Administration Ascorbic Acid 500 mg 11/15/21 09:00 11/16/21 09:22 Ascorbic Acid 500 Mg Tablet PO 11/15/22 08:59 500 mg DAILY JULIANN Administration Atorvastatin Calcium 10 mg 11/14/21 22:00 11/15/21 21:56 Atorvastatin 10 Mg Tablet PO 11/14/22 21:59 10 mg HS JULIANN Administration Clopidogrel Bisulfate 75 mg 11/15/21 09:00 11/16/21 09:22 Clopidogrel Bisulfate 75 Mg Tablet PO 11/15/22 08:59 75 mg DAILY JULIANN Administration Dextrose 0 gm 11/14/21 17:38 Dextrose 50% In Water 25 Gm/50 Ml Syringe IV-PUSH 11/14/22 17:37 PRN PRN Hypoglycemia Duloxetine HCl 60 mg 11/16/21 09:00 11/16/21 09:22 Duloxetine 60 Mg Capsule. PO 11/16/22 08:59 60 mg DAILY JULIANN Administration Ferrous Sulfate 324 mg 11/16/21 09:00 11/16/21 09:22 Ferrous Sulfate 324 Mg Tablet. PO 11/16/22 08:59 324 mg MoWeFr@0900 JULIANN Administration Folic Acid 1 mg 11/15/21 09:00 11/16/21 09:22 Folic Acid 1 Mg Tablet PO 11/15/22 08:59 1 mg DAILY JULIANN Administration Furosemide 40 mg 11/15/21 16:00 11/16/21 09:21 Furosemide 40 Mg/4 Ml Vial IV-PUSH 11/15/22 15:59 40 mg BID@0800,1600 JULIANN Administration Gabapentin 600 mg 11/15/21 21:00 11/15/21 21:56 Gabapentin 600 Mg Tablet PO 11/15/22 20:59 600 mg QPM JULIANN Administration Glucose 0 gm 11/14/21 17:38 Dextrose 40% Gel 15 Gm Tube PO 11/14/22 17:37 PRN PRN Hypoglycemia Heparin Sodium (Porcine) 5,000 unit 11/14/21 21:00 11/16/21 09:21 Heparin 5,000 Unit/Ml Vial SUBCUT 11/14/22 20:59 5,000 unit Q12HR JULIANN Administration Hydralazine HCl 10 mg 11/14/21 21:50 11/15/21 15:59 Hydralazine 20 Mg/Ml Vial IV-PUSH 11/14/22 21:49 10 mg Q4H PRN Administration Hypertension Meropenem 1 gm in 100 mls @ 200 mls/hr 11/15/21 06:00 11/16/21 05:42 Merrem IV 200 mls/hr Q12H JULIANN Administration Insulin Aspart 0 units 11/14/21 22:00 11/16/21 11:43 Insulin Aspart 300 Units/3 Ml Insuln.Pen SUBCUT 11/14/22 21:59 Not Given TID.WM.HS [facility] Protocol Insulin Detemir 42 units 11/15/21 09:00 11/16/21 09:24 Insulin Detemir 300 Units/3 Ml Insuln.Pen SUBCUT 11/15/22 08:59 42 units DAILY JULIANN Administration Losartan Potassium 25 mg 11/16/21 13:00 Losartan 25 Mg Tablet PO 11/16/22 12:59 DAILY JULIANN Loteprednol Etabonate 1 drops 11/14/21 18:00 11/16/21 09:23 Loteprednol 0.5% Op Susp 100 Drops/5 Ml Bottle EYE-LEFT 11/14/22 17:59 1 drops QID JULIANN Administration Melatonin 5 mg 11/14/21 17:42 11/14/21 22:22 Melatonin 5 Mg Tablet PO 11/14/22 17:41 5 mg HS PRN Administration Insomnia Metoprolol Tartrate 5 mg 11/14/21 21:50 Metoprolol Tartrate 5 Mg/5 Ml Vial IV-PUSH 11/14/22 21:49 Q4H PRN Blood Pressure Saccharomyces Boulardii 250 mg 11/15/21 08:00 11/16/21 09:22 Saccharomyces Deangelodii 250 Mg Capsule PO 11/15/22 07:59 250 mg BID.WITH.MEALS JULIANN Administration Sodium Bicarbonate 650 mg 11/15/21 14:00 11/16/21 09:22 Sodium Bicarbonate 650 Mg Tablet PO 11/15/22 13:59 650 mg TID JULIANN Administration Sodium Chloride 0 ml 11/14/21 12:54 Sodium Chloride 0.9 % 10 Ml Syringe IV-PUSH 11/14/22 12:53 PRN PRN Flush Sodium Chloride 0 ml 11/14/21 22:00 11/16/21 05:42 Sodium Chloride 0.9 % 10 Ml Syringe IV-PUSH 11/14/22 21:59 10 ml QSHIFT JULIANN Administration Sodium Hypochlorite 0 ml 11/14/21 21:00 11/16/21 09:23 Sodium Hypochlorite 0.25% 473 Ml Solution TOPICAL 11/14/22 20:59 473 ml BID JULIANN Administration Tamsulosin HCl 0.4 mg 11/14/21 21:00 11/16/21 09:22 Tamsulosin 0.4 Mg Cap.Er.24h PO 11/14/22 20:59 0.4 mg BID JULIANN Administration Vancomycin HCl 1 each 11/14/21 17:38 Vancomycin - Pharmacy Dosing 1 Each Miscell IV PRN PRN ZZ.Pharmacy Consult Protocol A&P - Hospitalist Assessment/Plan (1) Sepsis: (2) Diabetic foot ulcer: (3) TOM (acute kidney injury): (4) CKD (chronic kidney disease) stage 3, GFR 30-59 ml/min: (5) Type 2 diabetes mellitus with diabetic chronic kidney disease: (6) Osteomyelitis of foot: (7) Acute hyperkalemia: (8) PVD (peripheral vascular disease): Plan Assessment: Condition with sepsis, significant leukocytosis, acute kidney injury, and resultant hyperkalemia, with acute kidney injury on top of chronic kidney disease stage III, likely due to spread of infection from wounds on his right foot. X-ray of the emergency room does show bony destruction on the fifth metatarsal suggestive of osteomyelitis. The foot itself is extremely difficult to examine due to chronic massive edema and hyperkeratotic skin. Plan: Hospital mission, inpatient status. Continue broad-spectrum antibiotics with vancomycin dosed by pharmacy and meropenem, cultures have not finalized but WBC count is trending down, patient has been afebrile Podiatry and vascular surgery consulted, and appears to be no acute interventionfor this admission ? Though there is consideration of hyperbaric oxygen therapy. Podiatry MRI of the foot shows suspicion for osteomyelitis of the right fifth metatarsal with adjacent ulcer Giving bicarb therapy per nephrology Sanchez catheter was placed for monitoring of urine output. DVT prophylaxis with subcu heparin Documented By: Deo Bernabe DO 11/16/21 1217 Signed By: <Electronically signed by Deo Bernabe, DO> 11/16/21 1222 [facility] Work Phone: Progress note Author Olga Lidia Martin [facility] November 16, 2021 3:24pm Note Date/Time November 16, 2021 12 :33pm [facility] [address] [place] [address] Nephrology Progress Note Signed Patient: Simon Lott MR#: [id number] : 1950 Acct:[id number] Age/Sex: 71 / M Adm Date: 2 Loc: Room: [address] [place] [address] Type: ADM IN Attending Dr: Deo Bernabe DO Copies to: ~ Date of Service: 11/16/2021 Subjective Subjective Narrative: This is a 71-year male with medical history of CKD, diabetes mellitus, hypertension, anemia, secondary hyperparathyroidism, alcoholic liver disease, PAD, diabetic foot ulcer, CVA, hepatitis C and nephrolithiasis was transferred from the [facility] due to the fever. On evaluation emergency room patient was hyperkalemia serum potassium 6.1 mg/L and metabolic acidosis with serum bicarbonate 17 mmol/L. Patient was also noted to have a leukocytosis and tachycardia. He had a foot x-ray in the emergency room which showed finding concerning for osteomyelitis of the fifth metatarsal bone. Patient was given IVfluid and was started on broad-spectrum antibiotics for diabetic foot infection and sepsis. Patient was given sodium bicarbonate, insulin with D50 and Lokelma in the emergency room for hyperkalemia. On review record it appears that patient has a longstanding CKD with baseline creatinine around 3.2?3.5 mg/dL. His renal function has been declining due to the progression of his CKD. He used to follow with Dr. Taylor for CKD care but missed the last appointment. Nephrology is consulted for his CKD, hyperkalemia and metabolic acidosis management. Interval history Patient was seen examined bedside. He is feeling better today denies any chest pain palpitation cough nausea vomit diarrhea and shortness of breath. He has very good output with IV Lasix. Exam Physical Exam Vital Signs: Temp Pulse Resp BP Pulse Ox O2 Del Method 98.1 F 103 H 18 175/98 H 99 Room Air 11/16/21 11:07 11/16/21 11:07 11/16/21 11:07 11/16/21 11:07 11/16/21 11:07 11/16/21 11:07 Narrative: General: Appears comfortable and not in distress Heart: S1-S2, no rub Lung: Bilateral air entry, no wheezing or crackles Abdomen: Soft, positive bowel sounds Extremities: 2+ edema, no cyanosis Head: Atraumatic, normocephalic Ear: No gross hearing Deficit or external ear redness Eyes: No pallor or redness Neck: No JVD or visible mass Skin: No rashes or bruises ESTATE [employer]SERV[employer]: Awake,Alert, following simple command Musculoskeletal: No joint swelling or limitation of movement Psychiatric: Cooperative, normal mood and affect Objective Intake and Output I&O: Intake & Output 11/13/21 11/14/21 11/15/21 11/16/21 23:59 23:59 23:59 23:59 Intake Total 1350 / 1350 2550 / 2550 630 / 630 Output Total 525 / 525 2450 / 2450 850 / 850 Balance 825 / 825 100 / 100 -220 / -220 Weight 112.6 kg 112.6 kg 114 kg Meds and Allergies Meds: Active Medications Acarbose (Acarbose 50 Mg Tablet) 100 mg PO TID.WITH.MEALS JULIANN Stop: 11/15/22 07:59 Last Admin: 11/16/21 09:22 Dose: 100 mg Acetaminophen (Acetaminophen 325 Mg Tablet) 650 mg PO Q4H PRN PRN Reason: Pain Stop: 11/14/22 17:41 Last Admin: 11/15/21 18:15 Dose: 650 mg Amitriptyline HCl (Amitriptyline 10 Mg Tablet) 10 mg PO HS JULIANN Stop: 11/14/22 21:59 Last Admin: 11/15/21 21:56 Dose: 10 mg Ammonium Lactate (Ammonium Lactate 12% Lot 226 Gm Bottle) 1 applic TOPICAL QSHIFT JULIANN Stop: 11/14/22 21:59 Last Admin: 11/16/21 05:42 Dose: 1 applic Ascorbic Acid (Ascorbic Acid 500 Mg Tablet) 500 mg PO DAILY JULIANN Stop: 11/15/22 08:59 Last Admin: 11/16/21 09:22 Dose: 500 mg Atorvastatin Calcium (Atorvastatin 10 Mg Tablet) 10 mg PO HS JULIANN Stop: 11/14/22 21:59 Last Admin: 11/15/21 21:56 Dose: 10 mg Clopidogrel Bisulfate (Clopidogrel Bisulfate 75 Mg Tablet) 75 mg PO DAILY JULIANN Stop: 11/15/22 08:59 Last Admin: 11/16/21 09:22 Dose: 75 mg Dextrose (Dextrose 50% In Water 25 Gm/50 Ml Syringe) 0 gm IV-PUSH PRN PRN PRN Reason: Hypoglycemia Stop: 11/14/22 17:37 Duloxetine HCl (Duloxetine 60 Mg Capsule.) 60 mg PO DAILY JULIANN Stop: 11/16/22 08:59 Last Admin: 11/16/21 09:22 Dose: 60 mg Ferrous Sulfate (Ferrous Sulfate 324 Mg Tablet.) 324 mg PO MoWeFr@0900 JULIANN Stop: 11/16/22 08:59 Last Admin: 11/16/21 09:22 Dose: 324 mg Folic Acid (Folic Acid 1 Mg Tablet) 1 mg PO DAILY JULIANN Stop: 11/15/22 08:59 Last Admin: 11/16/21 09:22 Dose: 1 mg Furosemide (Furosemide 40 Mg/4 Ml Vial) 40 mg IV-PUSH BID@0800,1600 JULIANN Stop: 11/15/22 15:59 Last Admin: 11/16/21 09:21 Dose: 40 mg Gabapentin (Gabapentin 600 Mg Tablet) 600 mg PO QPM JULIANN Stop: 11/15/22 20:59 Last Admin: 11/15/21 21:56 Dose: 600 mg Glucose (Dextrose 40% Gel 15 Gm Tube) 0 gm PO PRN PRN PRN Reason: Hypoglycemia Stop: 11/14/22 17:37 Heparin Sodium (Porcine) (Heparin 5,000 Unit/Ml Vial) 5,000 unit SUBCUT Q12HR JULIANN Stop: 11/14/22 20:59 Last Admin: 11/16/21 09:21 Dose: 5,000 unit Hydralazine HCl (Hydralazine 20 Mg/Ml Vial) 10 mg IV-PUSH Q4H PRN PRN Reason: Hypertension Stop: 11/14/22 21:49 Last Admin: 11/15/21 15:59 Dose: 10 mg Meropenem (Merrem) 1 gm in 100 mls @ 200 mls/hr IV Q12H [facility] Last Admin: 11/16/21 05:42 Dose: 200 mls/hr Insulin Aspart (Insulin Aspart 300 Units/3 Ml Insuln.Pen) 0 units SUBCUT TID.WM.HS [facility]; Protocol Stop: 11/14/22 21:59 Last Admin: 11/16/21 11:43 Dose: Not Given Insulin Detemir (Insulin Detemir 300 Units/3 Ml Insuln.Pen) 42 units SUBCUT DAILY [facility] Stop: 11/15/22 08:59 Last Admin: 11/16/21 09:24 Dose: 42 units Losartan Potassium (Losartan 25 Mg Tablet) 25 mg PO DAILY [facility] Stop: 11/16/22 12:59 Loteprednol Etabonate (Loteprednol 0.5% Op Susp 100 Drops/5 Ml Bottle) 1 drops EYE-LEFT QID [facility] Stop: 11/14/22 17:59 Last Admin: 11/16/21 09:23 Dose: 1 drops Melatonin (Melatonin 5 Mg Tablet) 5 mg PO HS PRN PRN Reason: Insomnia Stop: 11/14/22 17:41 Last Admin: 11/14/21 22:22 Dose: 5 mg Metoprolol Tartrate (Metoprolol Tartrate 5 Mg/5 Ml Vial) 5 mg IV-PUSH Q4H PRN PRN Reason: Blood Pressure Stop: 11/14/22 21:49 Saccharomyces Boulardii (Saccharomyces Boulardii 250 Mg Capsule) 250 mg PO BID.WITH.MEALS [facility] Stop: 11/15/22 07:59 Last Admin: 11/16/21 09:22 Dose: 250 mg Sodium Bicarbonate (Sodium Bicarbonate 650 Mg Tablet) 650 mg PO TID [facility] Stop: 11/15/22 13:59 Last Admin: 11/16/21 09:22 Dose: 650 mg Sodium Chloride (Sodium Chloride 0.9 % 10 Ml Syringe) 0 ml IV-PUSH PRN PRN PRN Reason: Flush Stop: 11/14/22 12:53 Sodium Chloride (Sodium Chloride 0.9 % 10 Ml Syringe) 0 ml IV-PUSH QSHIFT JULIANN Stop: 11/14/22 21:59 Last Admin: 11/16/21 05:42 Dose: 10 ml Sodium Hypochlorite (Sodium Hypochlorite 0.25% 473 Ml Solution) 0 ml TOPICAL BID JULIANN Stop: 11/14/22 20:59 Last Admin: 11/16/21 09:23 Dose: 473 ml Tamsulosin HCl (Tamsulosin 0.4 Mg Cap.Er.24h) 0.4 mg PO BID JULIANN Stop: 11/14/22 20:59 Last Admin: 11/16/21 09:22 Dose: 0.4 mg Vancomycin HCl (Vancomycin - Pharmacy Dosing 1 Each Miscell) 1 each IV PRN PRN; Protocol PRN Reason: ZZ.Pharmacy Consult Allergies codeine Allergy (Verified 05/18/21 09:55) Unknown Reaction lisinopril Allergy (Verified 05/18/21 09:55) Swelling of Lip/Tongue/Throat Results Labs CBC & Chem 7: 11/16/21 06:30 11/16/21 06:30 Labs: 11/15/21 11/16/21 15:40 06:30 BUN 40 H Creatinine 3.31 H Iron Saturation 3.0 L Ferritin 68.6 Radiology Impressions Impressions - last 24 hours: Impressions Foot MRI 11/15/21 05:00 IMPRESSION: SIGNAL CHANGES INVOLVING THE FIFTH METATARSAL WHICH ARE HIGHLY SUSPICIOUS FOR OSTEOMYELITIS GIVEN THE PRESENCE OF AN ADJACENT ULCER. PROMINENT SOFT TISSUE EDEMA. Impression dictated by: Alla Phan M.D.11/15/2021 2:58 PM Dictation Location: [place] [address] Abdomen/Pelvis CT 11/15/21 08:00 IMPRESSION: BIBASILAR ATELECTASIS. LEFT NEPHROLITHIASIS. LEFT HYDRONEPHROSIS AND PROXIMAL HYDROURETER OF UNCERTAIN ETIOLOGY. URETERAL STRICTURE IS POSSIBLE GIVEN THE HISTORY OF URETERAL STONES AND STENT. SLIGHT URINARY BLADDER WALL THICKENING THOUGH THIS MAY RELATE TO INCOMPLETE DISTENTION. INCREASING INGUINAL AND PELVIC ADENOPATHY, GREATER ON THE RIGHT. SUBCUTANEOUS EDEMA. Impression dictated by: Alla Phan M.D.11/15/2021 1:18 PM Dictation Location: [place] [address] Any impression(s) listed above is documentation that was entered by the reading physician into a diagnostic report(s) for Simon Lott. I have reviewed the report(s) and am incorporating any findings in the treatment plan of this patient where applicable. A&P - Nephrology Assessment/Plan (1) High anion gap metabolic acidosis: Assessment/Problem Details: He has a metabolic acidosis likely due to the CKD. He has no evidence of lacticacidosis of ketoacidosis. (2) Hyperkalemia: Assessment/Problem Details: He has hypokalemia and due to the combination of the CKD, metabolic acidosis, potassium supplement and losartan. (3) CKD (chronic kidney disease) stage 4, GFR 15-29 ml/min: Assessment/Problem Details: He has a CKD due to the diabetic kidney disease and hypertensive nephrosclerosis. His baseline serum creatinine is 3.2 to 3.5 mg/dL. (4) Sepsis: Assessment/Problem Details: He has a sepsis likely due to the diabetic foot infection. His x-ray foot showed evidence of the osteomyelitis. Podiatry and vascular surgery has been consulted. (5) Hypertensive chronic kidney disease with stage 1 through stage 4 chronic kidney disease, or unspecified chronic kidney disease: Assessment/Problem Details: His blood pressure is high and he appears to be hypervolemic. (6) Type 2 diabetes mellitus with diabetic chronic kidney disease: Assessment/Problem Details: He has insulin-dependent type 2 diabetes mellitus currently using insulin Levemir at home. (7) Anemia: Assessment/Problem Details: He has a anemia likely due to the chronic infection and CKD.. Differential diagnoses are iron deficiency of B12 or folate deficiency or paraproteinemia. Plan * Continue Lasix 40 mg IV twice daily * Continue oral sodium bicarbonate 650 mg mg p.o. 3 times daily * Continue empiric antibiotic adjust as needed based on culture sensitivity. Pharmacy to dose medication. * Continue insulin and adjust the dose as needed keep the blood sugar between 100 to 151/dL. * Continue to hold home dose of the losartan and potassium chloride. * Will add amlodipine if needed * Check renal function daily and monitor input output. Documented By: Olga Lidia Martin MD 11/16/21 1232 Signed By: <Electronically signed by Olga Lidia Martin MD> 11/16/21 2356 [facility] Work Phone: Progress note Author Julian Jones [facility] November 17, 2021 12:46pm Note Date/Time November 17, 2021 12 :46pm [facility] [address] [place] [address] Hospitalist Progress Note Signed Patient: Simon Lott MR#: [id number] : 1950 Acct:[id number] Age/Sex: 71 / M Adm Date: 2 Loc: Room: [address] [place] [address] Type: ADM IN Attending Dr: Julian Jones MD Copies to: ~ Date of Service: 11/17/2021 Subjective Subjective Narrative: Patient was seen and examined at bedside. Remained afebrile overnight. Reportsfeeling better today. No major events overnight. Exam Physical Exam Vital Signs: Temp Pulse Resp BP Pulse Ox O2 Del Method 97.6 F 95 H 20 188/99 H 99 Room Air 11/17/21 12:00 11/17/21 12:00 11/17/21 12:00 11/17/21 12:00 11/17/21 12:00 11/17/21 12:00 Narrative: General: awake and alert, no acute distress HEENT: head atraumatic, normocephalic, moist mucous membranes, normal nose and ears, no throat lesions, normal conjunctiva Neck: supple no masses, no lymphadenopathy CVS: regular rate and rhythm, no murmurs or gallops Respiratory: clear to auscultation bilaterally, no wheezing or crackles, symmetric expansion GI: soft, nondistended, nontender, positive bowel sounds with no organomegaly Extremity: moves all extremities, no restrictions of movements, RLE edema >L , right foot is wrapped. Dressing C/D/I. amputated left toes. Neuro: AOx3, CN II-VII grossly intact. Moves all extremities Objective Lab Results CBC & Chem 7: 11/17/21 05:49 11/17/21 05:49 Microbiology Results Microbiology 11/14/21 13:23 Blood - Right Hand Blood Culture - Preliminary No Growth 2 Days 11/14/21 13:00 Blood - Right Antecubital Blood Culture - Preliminary No Growth 2 Days 11/14/21 14:36 Clean Void Midstream Urine Culture - Final No Growth 2 Days Meds Allergies and Active Meds Allergies codeine Allergy (Verified 05/18/21 09:55) Unknown Reaction lisinopril Allergy (Verified 05/18/21 09:55) Swelling of Lip/Tongue/Throat Active Meds: Active Medications Generic Name Dose Route Start Last Admin Trade Name Freq PRN Reason Stop Dose Admin Acarbose 100 mg 11/15/21 08:00 11/17/21 09:09 Acarbose 50 Mg Tablet PO 11/15/22 07:59 Not Given TID.WITH.MEALS JULIANN Acetaminophen 650 mg 11/14/21 17:42 11/15/21 18:15 Acetaminophen 325 Mg Tablet PO 11/14/22 17:41 650 mg Q4H PRN Administration Pain Amitriptyline HCl 10 mg 11/14/21 22:00 11/16/21 21:23 Amitriptyline 10 Mg Tablet PO 11/14/22 21:59 10 mg HS JULIANN Administration Ammonium Lactate 1 applic 11/14/21 22:00 11/17/21 05:44 Ammonium Lactate 12% Lot 226 Gm Bottle TOPICAL 11/14/22 21:59 1 applic QSHIFT JULIANN Administration Ascorbic Acid 500 mg 11/15/21 09:00 11/17/21 09:08 Ascorbic Acid 500 Mg Tablet PO 11/15/22 08:59 500 mg DAILY JULIANN Administration Atorvastatin Calcium 10 mg 11/14/21 22:00 11/16/21 21:23 Atorvastatin 10 Mg Tablet PO 11/14/22 21:59 10 mg HS JULIANN Administration Clopidogrel Bisulfate 75 mg 11/15/21 09:00 11/17/21 09:09 Clopidogrel Bisulfate 75 Mg Tablet PO 11/15/22 08:59 75 mg DAILY JULIANN Administration Dextrose 0 gm 11/14/21 17:38 Dextrose 50% In Water 25 Gm/50 Ml Syringe IV-PUSH 11/14/22 17:37 PRN PRN Hypoglycemia Duloxetine HCl 60 mg 11/16/21 09:00 11/17/21 09:08 Duloxetine 60 [address] Capsule.Dr IYER 11/16/22 08:59 60 mg DAILY JULIANN Administration Ferrous Sulfate 324 mg 11/16/21 09:00 11/16/21 09:22 Ferrous Sulfate 324 [address] Tablet[address]Dr IYER 11/16/22 08:59 324 mg MoWeFr@0900 JULIANN Administration Folic Acid 1 mg 11/15/21 09:00 11/17/21 09:08 Folic Acid 1 Mg Tablet PO 11/15/22 08:59 1 mg DAILY JULIANN Administration Furosemide 40 mg 11/15/21 16:00 11/16/21 17:20 Furosemide 40 Mg/4 Ml Vial IV-PUSH 11/15/22 15:59 40 mg BID@0800,1600 JULIANN Administration Gabapentin 600 mg 11/15/21 21:00 11/16/21 21:23 Gabapentin 600 Mg Tablet PO 11/15/22 20:59 600 mg QPM JULIANN Administration Glucose 0 gm 11/14/21 17:38 Dextrose 40% Gel 15 Gm Tube PO 11/14/22 17:37 PRN PRN Hypoglycemia Heparin Sodium (Porcine) 5,000 unit 11/14/21 21:00 11/17/21 09:10 Heparin 5,000 Unit/Ml Vial SUBCUT 11/14/22 20:59 5,000 unit Q12HR JULIANN Administration Hydralazine HCl 10 mg 11/14/21 21:50 11/15/21 15:59 Hydralazine 20 Mg/Ml Vial IV-PUSH 11/14/22 21:49 10 mg Q4H PRN Administration Hypertension Meropenem 1 gm in 100 mls @ 200 mls/hr 11/15/21 06:00 11/17/21 05:43 Merrem IV 200 mls/hr Q12H JULIANN Administration Insulin Aspart 0 units 11/14/21 22:00 11/17/21 09:09 Insulin Aspart 300 Units/3 Ml Insuln.Pen SUBCUT 11/14/22 21:59 Not Given TID.WM.HS [facility] Protocol Insulin Detemir 42 units 11/15/21 09:00 11/17/21 09:10 Insulin Detemir 300 Units/3 Ml Insuln.Pen SUBCUT 11/15/22 08:59 42 units DAILY JULIANN Administration Losartan Potassium 50 mg 11/18/21 09:00 Losartan 50 Mg Tablet PO 11/18/22 08:59 DAILY JULIANN Loteprednol Etabonate 1 drops 11/14/21 18:00 11/17/21 09:10 Loteprednol 0.5% Op Susp 100 Drops/5 Ml Bottle EYE-LEFT 11/14/22 17:59 1 drops QID JULIANN Administration Melatonin 5 mg 11/14/21 17:42 11/16/21 21:23 Melatonin 5 Mg Tablet PO 11/14/22 17:41 5 mg HS PRN Administration Insomnia Metoprolol Tartrate 5 mg 11/14/21 21:50 Metoprolol Tartrate 5 Mg/5 Ml Vial IV-PUSH 11/14/22 21:49 Q4H PRN Blood Pressure Saccharomyces Boulardii 250 mg 11/15/21 08:00 11/17/21 09:08 Saccharomyces Boulardii 250 Mg Capsule PO 11/15/22 07:59 250 mg BID.WITH.MEALS JULIANN Administration Sodium Bicarbonate 650 mg 11/15/21 14:00 11/17/21 09:08 Sodium Bicarbonate 650 Mg Tablet PO 11/15/22 13:59 650 mg TID JULIANN Administration Sodium Chloride 0 ml 11/14/21 12:54 11/17/21 09:11 Sodium Chloride 0.9 % 10 Ml Syringe IV-PUSH 11/14/22 12:53 10 ml PRN PRN Administration Flush Sodium Chloride 0 ml 11/14/21 22:00 11/17/21 05:43 Sodium Chloride 0.9 % 10 Ml Syringe IV-PUSH 11/14/22 21:59 10 ml QSHIFT JULIANN Administration Sodium Hypochlorite 0 ml 11/14/21 21:00 11/17/21 09:11 Sodium Hypochlorite 0.25% 473 Ml Solution TOPICAL 11/14/22 20:59 473 ml BID JULIANN Administration Tamsulosin HCl 0.4 mg 11/14/21 21:00 11/17/21 09:11 Tamsulosin 0.4 Mg Cap.Er.24h PO 11/14/22 20:59 Not Given BID JULIANN Vancomycin HCl 1 each 11/14/21 17:38 Vancomycin - Pharmacy Dosing 1 Each Miscell IV PRN PRN ZZ.Pharmacy Consult Protocol A&P - Hospitalist Assessment/Plan (1) Sepsis: (2) Diabetic foot ulcer: (3) TOM (acute kidney injury): (4) CKD (chronic kidney disease) stage 3, GFR 30-59 ml/min: (5) Type 2 diabetes mellitus with diabetic chronic kidney disease: (6) Osteomyelitis of foot: (7) Acute hyperkalemia: (8) PVD (peripheral vascular disease): Plan -Remains afebrile overnight, WBC downtrending -Continue broad-spectrum antibiotics with vancomycin and Meropenem dosed by pharmacy -Podiatry and vascular surgery on board, no acute intervention warranted -Blood cultures negative to date -Possible consideration of hyperbaric oxygen therapy -Continue current management DVT prophylaxis with heparin Documented By: Julian Jones MD 11/17/21 12 38 Signed By: <Electronically signed by Julian Jones MD> 11/17/21 1246 [facility] Work Phone: Progress note Author Olga Lidia Martin [facility] November 17, 2021 1:02pm Note Date/Time November 17, 2021 1: 02pm [facility] [address] [place] [address] Nephrology Progress Note Signed Patient: Simon Lott MR#: [id number] : 1950 Acct:[id number] Age/Sex: 71 / M Adm Date: 2 Loc: Room: [address] [place] [address] Type: ADM IN Attending Dr: Julian Jones MD Copies to: ~ Date of Service: 11/17/2021 Subjective Subjective Narrative: This is a 71-year male with medical history of CKD, diabetes mellitus, hypertension, anemia, secondary hyperparathyroidism, alcoholic liver disease, PAD, diabetic foot ulcer, CVA, hepatitis C and nephrolithiasis [facility]. On evaluation emergency room patient was hyperkalemia serum potassium 6.1 mg/L and metabolic acidosis with serum bicarbonate 17 mmol/L. Patient was also noted to have a leukocytosis and tachycardia. He had a foot x-ray in the emergency room which showed finding concerning for osteomyelitis of the fifth metatarsal bone. Patient was given IVfluid and was started on broad-spectrum antibiotics for diabetic foot infection and sepsis. Patient was given sodium bicarbonate, insulin with D50 and Lokelma in the emergency room for hyperkalemia. On review record it appears that patient has a longstanding CKD with baseline creatinine around 3.2?3.5 mg/dL. His renal function has been declining due to the progression of his CKD. He used to follow with Dr. Taylor for CKD care but missed the last appointment. Nephrology is consulted for his CKD, hyperkalemia and metabolic acidosis management. Interval history He is feeling better today denies any chest pain palpitation cough nausea vomitdiarrhea and shortness of breath. He was seen by the vascular surgery for infected right foot. Vascular surgery recommended nonurgent BKA or AKA due to his severe PAD. He was also seen by the podiatry and option of hyperbaric oxygen was discussed as patient is refusing BKA. Exam Physical Exam Vital Signs: Temp Pulse Resp BP Pulse Ox O2 Del Method 97.6 F 95 H 20 188/99 H 99 Room Air 11/17/21 12:00 11/17/21 12:00 11/17/21 12:00 11/17/21 12:00 11/17/21 12:00 11/17/21 12:00 Narrative: General: Appears comfortable and not in distress Heart: S1-S2, no rub Lung: Bilateral air entry, no wheezing or crackles Abdomen: Soft, positive bowel sounds Extremities: 2+ edema, no cyanosis Head: Atraumatic, normocephalic Ear: No gross hearing Deficit or external ear redness Eyes: No pallor or redness Neck: No JVD or visible mass Skin: No rashes or bruises ESTATE CONSERVATOR: Awake,Alert, following simple command Musculoskeletal: No joint swelling or limitation of movement Psychiatric: Cooperative, normal mood and affect Objective Intake and Output I&O: Intake & Output 11/14/21 11/15/21 11/16/21 11/17/21 23:59 23:59 23:59 23:59 Intake Total 1350 / 1350 2550 / 2550 1680 / 1680 100 / 100 Output Total 525 / 525 2450 / 2450 3725 / 3725 950 / 950 Balance 825 / 825 100 / 100 -2045 / -2045 -850 / -850 Weight 112.6 kg 112.6 kg 114.8 kg Meds and Allergies Meds: Active Medications Acarbose (Acarbose 50 Mg Tablet) 100 mg PO TID.WITH.MEALS JULIANN Stop: 11/15/22 07:59 Last Admin: 11/17/21 09:09 Dose: Not Given Acetaminophen (Acetaminophen 325 Mg Tablet) 650 mg PO Q4H PRN PRN Reason: Pain Stop: 11/14/22 17:41 Last Admin: 11/15/21 18:15 Dose: 650 mg Amitriptyline HCl (Amitriptyline 10 Mg Tablet) 10 mg PO HS JULIANN Stop: 11/14/22 21:59 Last Admin: 11/16/21 21:23 Dose: 10 mg Ammonium Lactate (Ammonium Lactate 12% Lot 226 Gm Bottle) 1 applic TOPICAL QSHIFT JULIANN Stop: 11/14/22 21:59 Last Admin: 11/17/21 05:44 Dose: 1 applic Ascorbic Acid (Ascorbic Acid 500 Mg Tablet) 500 mg PO DAILY JULIANN Stop: 11/15/22 08:59 Last Admin: 11/17/21 09:08 Dose: 500 mg Atorvastatin Calcium (Atorvastatin 10 Mg Tablet) 10 mg PO HS JULIANN Stop: 11/14/22 21:59 Last Admin: 11/16/21 21:23 Dose: 10 mg Clopidogrel Bisulfate (Clopidogrel Bisulfate 75 Mg Tablet) 75 mg PO DAILY JULIANN Stop: 11/15/22 08:59 Last Admin: 11/17/21 09:09 Dose: 75 mg Dextrose (Dextrose 50% In Water 25 Gm/50 Ml Syringe) 0 gm IV-PUSH PRN PRN PRN Reason: Hypoglycemia Stop: 11/14/22 17:37 Duloxetine HCl (Duloxetine 60 Mg Capsule.) 60 mg PO DAILY JULIANN Stop: 11/16/22 08:59 Last Admin: 11/17/21 09:08 Dose: 60 mg Ferrous Sulfate (Ferrous Sulfate 324 Mg Tablet.) 324 mg PO MoWeFr@0900 JULIANN Stop: 11/16/22 08:59 Last Admin: 11/16/21 09:22 Dose: 324 mg Folic Acid (Folic Acid 1 Mg Tablet) 1 mg PO DAILY JULIANN Stop: 11/15/22 08:59 Last Admin: 11/17/21 09:08 Dose: 1 mg Furosemide (Furosemide 40 Mg/4 Ml Vial) 40 mg IV-PUSH BID@0800,1600 JULIANN Stop: 11/15/22 15:59 Last Admin: 11/16/21 17:20 Dose: 40 mg Gabapentin (Gabapentin 600 Mg Tablet) 600 mg PO QPM JULIANN Stop: 11/15/22 20:59 Last Admin: 11/16/21 21:23 Dose: 600 mg Glucose (Dextrose 40% Gel 15 Gm Tube) 0 gm PO PRN PRN PRN Reason: Hypoglycemia Stop: 11/14/22 17:37 Heparin Sodium (Porcine) (Heparin 5,000 Unit/Ml Vial) 5,000 unit SUBCUT Q12HR JULIANN Stop: 11/14/22 20:59 Last Admin: 11/17/21 09:10 Dose: 5,000 unit Hydralazine HCl (Hydralazine 20 Mg/Ml Vial) 10 mg IV-PUSH Q4H PRN PRN Reason: Hypertension Stop: 11/14/22 21:49 Last Admin: 11/15/21 15:59 Dose: 10 mg Meropenem (Merrem) 1 gm in 100 mls @ 200 mls/hr IV Q12H [facility] Last Admin: 11/17/21 05:43 Dose: 200 mls/hr Insulin Aspart (Insulin Aspart 300 Units/3 Ml Insuln.Pen) 0 units SUBCUT TID.WM.HS JULIANN; Protocol Stop: 11/14/22 21:59 Last Admin: 11/17/21 09:09 Dose: Not Given Insulin Detemir (Insulin Detemir 300 Units/3 Ml Insuln.Pen) 42 units SUBCUT DAILY [facility] Stop: 11/15/22 08:59 Last Admin: 11/17/21 09:10 Dose: 42 units Losartan Potassium (Losartan 50 Mg Tablet) 50 mg PO DAILY [facility] Stop: 11/18/22 08:59 Loteprednol Etabonate (Loteprednol 0.5% Op Susp 100 Drops/5 Ml Bottle) 1 drops EYE-LEFT QID [facility] Stop: 11/14/22 17:59 Last Admin: 11/17/21 09:10 Dose: 1 drops Melatonin (Melatonin 5 Mg Tablet) 5 mg PO HS PRN PRN Reason: Insomnia Stop: 11/14/22 17:41 Last Admin: 11/16/21 21:23 Dose: 5 mg Metoprolol Tartrate (Metoprolol Tartrate 5 Mg/5 Ml Vial) 5 mg IV-PUSH Q4H PRN PRN Reason: Blood Pressure Stop: 11/14/22 21:49 Saccharomyces Boulardii (Saccharomyces Boulardii 250 Mg Capsule) 250 mg PO BID.WITH.MEALS [facility] Stop: 11/15/22 07:59 Last Admin: 11/17/21 09:08 Dose: 250 mg Sodium Bicarbonate (Sodium Bicarbonate 650 Mg Tablet) 650 mg PO TID JULIANN Stop: 11/15/22 13:59 Last Admin: 11/17/21 09:08 Dose: 650 mg Sodium Chloride (Sodium Chloride 0.9 % 10 Ml Syringe) 0 ml IV-PUSH PRN PRN PRN Reason: Flush Stop: 11/14/22 12:53 Last Admin: 11/17/21 09:11 Dose: 10 ml Sodium Chloride (Sodium Chloride 0.9 % 10 Ml Syringe) 0 ml IV-PUSH QSHIFT JULIANN Stop: 11/14/22 21:59 Last Admin: 11/17/21 05:43 Dose: 10 ml Sodium Hypochlorite (Sodium Hypochlorite 0.25% 473 Ml Solution) 0 ml TOPICAL BID JULIANN Stop: 11/14/22 20:59 Last Admin: 11/17/21 09:11 Dose: 473 ml Tamsulosin HCl (Tamsulosin 0.4 Mg Cap.Er.24h) 0.4 mg PO BID JULIANN Stop: 11/14/22 20:59 Last Admin: 11/17/21 09:11 Dose: Not Given Vancomycin HCl (Vancomycin - Pharmacy Dosing 1 Each Miscell) 1 each IV PRN PRN; Protocol PRN Reason: ZZ.Pharmacy Consult Allergies codeine Allergy (Verified 05/18/21 09:55) Unknown Reaction lisinopril Allergy (Verified 05/18/21 09:55) Swelling of Lip/Tongue/Throat Results Labs CBC & Chem 7: 11/17/21 05:49 11/17/21 05:49 Labs: 11/17/21 05:49 BUN 42 H Creatinine 3.24 H Radiology Impressions Impressions - last 24 hours: Any impression(s) listed above is documentation that was entered by the reading physician into a diagnostic report(s) for Simon Lott. I have reviewed the report(s) and am incorporating any findings in the treatment plan of this patient where applicable. A&P - Nephrology Assessment/Plan (1) High anion gap metabolic acidosis: Assessment/Problem Details: He has a metabolic acidosis likely due to the CKD. He has no evidence of lacticacidosis of ketoacidosis. (2) Hyperkalemia: Assessment/Problem Details: He has hypokalemia and due to the combination of the CKD, metabolic acidosis, potassium supplement and losartan. (3) CKD (chronic kidney disease) stage 4, GFR 15-29 ml/min: Assessment/Problem Details: He has a CKD due to the diabetic kidney disease and hypertensive nephrosclerosis. His baseline serum creatinine is 3.2 to 3.5 mg/dL. (4) Sepsis: Assessment/Problem Details: He has a sepsis likely due to the diabetic foot infection. His x-ray foot showed evidence of the osteomyelitis. Podiatry and vascular surgery has been consulted. (5) Hypertensive chronic kidney disease with stage 1 through stage 4 chronic kidney disease, or unspecified chronic kidney disease: Assessment/Problem Details: His blood pressure is high and he appears to be hypervolemic. (6) Type 2 diabetes mellitus with diabetic chronic kidney disease: Assessment/Problem Details: He has insulin-dependent type 2 diabetes mellitus currently using insulin Levemir at home. (7) Anemia: Assessment/Problem Details: He has a anemia likely due to the chronic infection and CKD.. Differential diagnoses are iron deficiency of B12 or folate deficiency or paraproteinemia. Plan * Continue Lasix 40 mg IV twice daily * Increase losartan 50 mg daily. Will monitor serum potassium closely due to the hyperkalemia. Continue to hold home dose of the oral potassium. * Continue oral sodium bicarbonate 650 mg mg p.o. 3 times daily * Continue empiric antibiotic adjust as needed based on culture sensitivity. Pharmacy to dose medication. * Continue insulin and adjust the dose as needed keep the blood sugar between 100 to 150 mg/dL. * Check renal function daily and monitor input output. Documented By: Olga Lidia Martin MD 11/17/21 1253 Signed By: <Electronically signed by Olga Lidia Martin MD> 11/17/21 1302 [facility] Work Phone: Progress note Author Olga Lidia Martin [facility] November 18, 2021 12:35pm Note Date/Time November 18, 2021 12 :24pm [facility] [address] [place] [address] Nephrology Progress Note Signed Patient: Simon Lott MR#: [id number] : 1950 Acct:[id number] Age/Sex: 71 / M Adm Date: 2 Loc: Room: 0B1717-1 Type: ADM IN Attending Dr: Deo Bernabe DO Copies to: ~ Date of Service: 11/18/2021 Subjective Subjective Narrative: This is a 71-year male with medical history of CKD, diabetes mellitus, hypertension, anemia, secondary hyperparathyroidism, alcoholic liver disease, PAD, diabetic foot ulcer, CVA, hepatitis C and nephrolithiasis [facility]. On evaluation emergency room patient was hyperkalemia serum potassium 6.1 mg/L and metabolic acidosis with serum bicarbonate 17 mmol/L. Patient was also noted to have a leukocytosis and tachycardia. He had a foot x-ray in the emergency room which showed finding concerning for osteomyelitis of the fifth metatarsal bone. Patient was given IVfluid and was started on broad-spectrum antibiotics for diabetic foot infection and sepsis. Patient was given sodium bicarbonate, insulin with D50 and Lokelma in the emergency room for hyperkalemia. On review record it appears that patient has a longstanding CKD with baseline creatinine around 3.2?3.5 mg/dL. His renal function has been declining due to the progression of his CKD. He used to follow with Dr. Taylor for CKD care but missed the last appointment. Nephrology is consulted for his CKD, fluid overload, hyperkalemia and metabolic acidosis management. Interval history He has a fluid overload with hyperkalemia and metabolic acidosis due to the CKD. His serum potassium went back to normal with diuresis and correction of acidosis. He is currently on oral sodium bicarbonate and Lasix. His blood pressure still running high due to the hypovolemia. His home dose of losartan was increased to 50 mg daily and he has been tolerating well. He was seen by the vascular surgery for infected right foot. Vascular surgery recommended nonurgent BKA or AKA due to his severe PAD. He was also seen by thepodiatry and option of hyperbaric oxygen was discussed as patient is refusing BKA. He is currently on empiric antibiotic. He is feeling better today denies any chest pain palpitation cough nausea vomitdiarrhea and shortness of breath. Exam Physical Exam Vital Signs: Temp Pulse Resp BP Pulse Ox O2 Del Method 97.5 F L 90 16 182/92 H 98 Room Air 11/18/21 11:36 11/18/21 11:36 11/18/21 11:36 11/18/21 11:36 11/18/21 11:36 11/18/21 11:36 Narrative: General: Appears comfortable and not in distress Heart: S1-S2, no rub Lung: Bilateral air entry, no wheezing or crackles Abdomen: Soft, positive bowel sounds Extremities: 2+ edema, no cyanosis Head: Atraumatic, normocephalic Ear: No gross hearing Deficit or external ear redness Eyes: No pallor or redness Neck: No JVD or visible mass Skin: No rashes or bruises ESTATE CONSERVATOR: Awake,Alert, following simple command Musculoskeletal: No joint swelling or limitation of movement Psychiatric: Cooperative, normal mood and affect Objective Intake and Output I&O: Intake & Output 11/15/21 11/16/21 11/17/21 11/18/21 23:59 23:59 23:59 23:59 Intake Total 2550 / 2550 1680 / 1680 1110 / 1110 240 / 240 Output Total 2450 / 2450 3725 / 3725 3400 / 3400 850 / 850 Balance 100 / 100 -2045 / -2045 -2290 / -2290 -610 / -610 Weight 112.6 kg 114.8 kg 110 kg Meds and Allergies Meds: Active Medications Acarbose (Acarbose 50 Mg Tablet) 100 mg PO TID.WITH.MEALS [facility] Stop: 11/15/22 07:59 Last Admin: 11/18/21 11:35 Dose: 100 mg Acetaminophen (Acetaminophen 325 Mg Tablet) 650 mg PO Q4H PRN PRN Reason: Pain Stop: 11/14/22 17:41 Last Admin: 11/15/21 18:15 Dose: 650 mg Amitriptyline HCl (Amitriptyline 10 Mg Tablet) 10 mg PO HS [facility] Stop: 11/14/22 21:59 Last Admin: 11/17/21 21:45 Dose: 10 mg Ammonium Lactate (Ammonium Lactate 12% Lot 226 Gm Bottle) 1 applic TOPICAL QSHIFT JULIANN Stop: 11/14/22 21:59 Last Admin: 11/18/21 06:08 Dose: 1 applic Ascorbic Acid (Ascorbic Acid 500 Mg Tablet) 500 mg PO DAILY JULIANN Stop: 11/15/22 08:59 Last Admin: 11/18/21 09:04 Dose: 500 mg Atorvastatin Calcium (Atorvastatin 10 Mg Tablet) 10 mg PO HS [facility] Stop: 11/14/22 21:59 Last Admin: 11/17/21 21:45 Dose: 10 mg Clopidogrel Bisulfate (Clopidogrel Bisulfate 75 Mg Tablet) 75 mg PO DAILY JULIANN Stop: 11/15/22 08:59 Last Admin: 11/18/21 09:04 Dose: 75 mg Dextrose (Dextrose 50% In Water 25 Gm/50 Ml Syringe) 0 gm IV-PUSH PRN PRN PRN Reason: Hypoglycemia Stop: 11/14/22 17:37 Duloxetine HCl (Duloxetine 60 Mg Capsule.) 60 mg PO DAILY [facility] Stop: 11/16/22 08:59 Last Admin: 11/18/21 09:04 Dose: 60 mg Ferrous Sulfate (Ferrous Sulfate 324 Mg Tablet.) 324 mg PO MoWeFr@0900 [facility] Stop: 11/16/22 08:59 Last Admin: 11/16/21 09:22 Dose: 324 mg Folic Acid (Folic Acid 1 Mg Tablet) 1 mg PO DAILY [facility] Stop: 11/15/22 08:59 Last Admin: 11/18/21 09:04 Dose: 1 mg Furosemide (Furosemide 40 Mg/4 Ml Vial) 40 mg IV-PUSH BID@0800,1600 [facility] Stop: 11/15/22 15:59 Last Admin: 11/18/21 09:03 Dose: 40 mg Gabapentin (Gabapentin 600 Mg Tablet) 600 mg PO QPM [facility] Stop: 11/15/22 20:59 Last Admin: 11/17/21 21:45 Dose: 600 mg Glucose (Dextrose 40% Gel 15 Gm Tube) 0 gm PO PRN PRN PRN Reason: Hypoglycemia Stop: 11/14/22 17:37 Heparin Sodium (Porcine) (Heparin 5,000 Unit/Ml Vial) 5,000 unit SUBCUT Q12HR [facility] Stop: 11/14/22 20:59 Last Admin: 11/18/21 11:04 Dose: 5,000 unit Hydralazine HCl (Hydralazine 20 Mg/Ml Vial) 10 mg IV-PUSH Q4H PRN PRN Reason: Hypertension Stop: 11/14/22 21:49 Last Admin: 11/15/21 15:59 Dose: 10 mg Meropenem (Merrem) 1 gm in 100 mls @ 200 mls/hr IV Q12H [facility] Last Admin: 11/18/21 06:08 Dose: 200 mls/hr Insulin Aspart (Insulin Aspart 300 Units/3 Ml Insuln.Pen) 0 units SUBCUT TID.WM.HS [facility]; Protocol Stop: 11/14/22 21:59 Last Admin: 11/18/21 09:03 Dose: Not Given Insulin Detemir (Insulin Detemir 300 Units/3 Ml Insuln.Pen) 42 units SUBCUT DAILY [facility] Stop: 11/15/22 08:59 Last Admin: 11/18/21 09:04 Dose: 42 units Losartan Potassium (Losartan 50 Mg Tablet) 50 mg PO DAILY [facility] Stop: 11/18/22 08:59 Last Admin: 11/18/21 09:04 Dose: 50 mg Loteprednol Etabonate (Loteprednol 0.5% Op Susp 100 Drops/5 Ml Bottle) 1 drops EYE-LEFT QID [facility] Stop: 11/14/22 17:59 Last Admin: 11/18/21 09:05 Dose: 1 drops Melatonin (Melatonin 5 Mg Tablet) 5 mg PO HS PRN PRN Reason: Insomnia Stop: 11/14/22 17:41 Last Admin: 11/16/21 21:23 Dose: 5 mg Metoprolol Tartrate (Metoprolol Tartrate 5 Mg/5 Ml Vial) 5 mg IV-PUSH Q4H PRN PRN Reason: Blood Pressure Stop: 11/14/22 21:49 Saccharomyces Boulardii (Saccharomyces Boulardii 250 Mg Capsule) 250 mg PO BID.WITH.MEALS JULIANN Stop: 11/15/22 07:59 Last Admin: 11/18/21 09:04 Dose: 250 mg Sodium Bicarbonate (Sodium Bicarbonate 650 Mg Tablet) 650 mg PO TID [facility] Stop: 11/15/22 13:59 Last Admin: 11/18/21 09:05 Dose: 650 mg Sodium Chloride (Sodium Chloride 0.9 % 10 Ml Syringe) 0 ml IV-PUSH PRN PRN PRN Reason: Flush Stop: 11/14/22 12:53 Last Admin: 11/18/21 09:06 Dose: 10 ml Sodium Chloride (Sodium Chloride 0.9 % 10 Ml Syringe) 0 ml IV-PUSH QSHIFT [facility] Stop: 11/14/22 21:59 Last Admin: 11/18/21 06:08 Dose: 10 ml Sodium Hypochlorite (Sodium Hypochlorite 0.25% 473 Ml Solution) 0 ml TOPICAL BID JULIANN Stop: 11/14/22 20:59 Last Admin: 11/18/21 09:05 Dose: 473 ml Tamsulosin HCl (Tamsulosin 0.4 Mg Cap.Er.24h) 0.4 mg PO BID J[facility] Stop: 11/14/22 20:59 Last Admin: 11/18/21 11:04 Dose: 0.4 mg Vancomycin HCl (Vancomycin - Pharmacy Dosing 1 Each Miscell) 1 each IV PRN PRN; Protocol PRN Reason: ZZ.Pharmacy Consult Allergies codeine Allergy (Verified 05/18/21 09:55) Unknown Reaction lisinopril Allergy (Verified 05/18/21 09:55) Swelling of Lip/Tongue/Throat Results Labs CBC & Chem 7: 11/18/21 05:44 11/18/21 05:44 Labs: 11/18/21 05:44 BUN 41 H Creatinine 3.29 H Radiology Impressions Impressions - last 24 hours: Any impression(s) listed above is documentation that was entered by the reading physician into a diagnostic report(s) for Simon Lott. I have reviewed the report(s) and am incorporating any findings in the treatment plan of this patient where applicable. A&P - Nephrology Assessment/Plan (1) High anion gap metabolic acidosis: Assessment/Problem Details: He had metabolic acidosis likely due to the CKD. He has no evidence of lactic acidosis of ketoacidosis. His acidosis corrected with diuresis and sodium bicarbonate (2) Hyperkalemia: Assessment/Problem Details: He has hyperkalemia and due to the combination of the CKD, metabolic acidosis, potassium supplement and losartan. His potassium is back to normal with the Lasix and correction of acidosis. Patient has been tolerating losartan well. (3) CKD (chronic kidney disease) stage 4, GFR 15-29 ml/min: Assessment/Problem Details: He has a CKD due to the diabetic kidney disease and hypertensive nephrosclerosis. His baseline serum creatinine is 3.2 to 3.5 mg/dL. (4) Sepsis: Assessment/Problem Details: He has a sepsis likely due to the diabetic foot infection. His x-ray foot showed evidence of the osteomyelitis. Podiatry and vascular surgery has been consulted. (5) Hypertensive chronic kidney disease with stage 1 through stage 4 chronic kidney disease, or unspecified chronic kidney disease: Assessment/Problem Details: His blood pressure is high and he appears to be hypervolemic. (6) Type 2 diabetes mellitus with diabetic chronic kidney disease: Assessment/Problem Details: He has insulin-dependent type 2 diabetes mellitus currently using insulin Levemir at home. (7) Anemia: Assessment/Problem Details: He has a anemia likely due to the chronic infection, CKD and iron deficiency. His hemoglobin is low but stable. His serum free light chain ratio, serum immunofixation and SPEP are unremarkable. Plan * Continue Lasix 40 mg IV twice daily * Continue 50 mg daily. Will monitor serum potassium closely due to the hyperkalemia. Continue to hold home dose of the oral potassium. * Continue oral sodium bicarbonate 650 mg mg p.o. 3 times daily * Continue oral iron. Due to the active infection we will avoid IV iron. Will follow UPEP and urine immunofixation. * Continue empiric antibiotic adjust as needed based on culture sensitivity. Pharmacy to dose medication. * Continue insulin and adjust the dose as needed keep the blood sugar between 100 to 150 mg/dL. * Check renal function daily and monitor input output. Documented By: Olga Lidia Martin MD 11/18/21 1222 Signed By: <Electronically signed by Olga Lidia Martin MD> 11/18/21 1235 [facility] Work Phone: Progress note Author Deo Bernabe [facility] November 18, 2021 3:44pm Note Date/Time November 18, 2021 3: 44pm [facility] [address] [place] [address] Hospitalist Progress Note Signed Patient: Simon Lott MR#: [id number] : 1950 Acct:[id number] Age/Sex: 71 / M Adm Date: 2 Loc: Room: [address] [place] [address] Type: ADM IN Attending Dr: eDo Bernabe DO Copies to: ~ Date of Service: 11/18/2021 Subjective Subjective Narrative: Patient was seen and examined at bedside. Remained afebrile overnight. Reportsfeeling better today. No major events overnight. Patient asking when he can bedischarged. Exam Physical Exam Vital Signs: Temp Pulse Resp BP Pulse Ox O2 Del Method 97.7 F 98 H 16 186/98 H 99 Room Air 11/18/21 15:28 11/18/21 15:28 11/18/21 15:28 11/18/21 15:28 11/18/21 15:28 11/18/21 15:28 Narrative: General: awake alert, no acute distress HEENT: head atraumatic, normocephalic, moist mucous membranes, normal nose and ears, no throat lesions, normal conjunctiva Neck: supple no masses, no lymphadenopathy CVS: regular rate and rhythm, no murmurs or gallops Respiratory: clear to auscultation bilaterally, no wheezing or crackles, symmetric expansion GI: soft, nondistended, nontender, positive bowel sounds with no organomegaly Extremity: moves all extremities, no restrictions of movements, no calf tenderness, RLE edema, right foot is wrapped. Dressing CDI. Neuro: AOx3, CN II-VII intact. Moves all extremities in all planes of motion. Skin: dry, intact no rashes or lesions Objective Lab Results CBC & Chem 7: 11/18/21 05:44 11/18/21 05:44 Microbiology Results Microbiology 11/14/21 13:23 Blood - Right Hand Blood Culture - Preliminary No Growth 4 Days 11/14/21 13:00 Blood - Right Antecubital Blood Culture - Preliminary No Growth 4 Days Meds Allergies and Active Meds Allergies codeine Allergy (Verified 05/18/21 09:55) Unknown Reaction lisinopril Allergy (Verified 05/18/21 09:55) Swelling of Lip/Tongue/Throat Active Meds: Active Medications Generic Name Dose Route Start Last Admin Trade Name Freq PRN Reason Stop Dose Admin Acarbose 100 mg 11/15/21 08:00 11/18/21 11:35 Acarbose 50 Mg Tablet PO 11/15/22 07:59 100 mg TID.WITH.MEALS JULIANN Administration Acetaminophen 650 mg 11/14/21 17:42 11/15/21 18:15 Acetaminophen 325 Mg Tablet PO 11/14/22 17:41 650 mg Q4H PRN Administration Pain Amitriptyline HCl 10 mg 11/14/21 22:00 11/17/21 21:45 Amitriptyline 10 Mg Tablet PO 11/14/22 21:59 10 mg HS JULIANN Administration Ammonium Lactate 1 applic 11/14/21 22:00 11/18/21 13:27 Ammonium Lactate 12% Lot 226 Gm Bottle TOPICAL 11/14/22 21:59 1 applic QSHIFT JULIANN Administration Ascorbic Acid 500 mg 11/15/21 09:00 11/18/21 09:04 Ascorbic Acid 500 Mg Tablet PO 11/15/22 08:59 500 mg DAILY JULIANN Administration Atorvastatin Calcium 10 mg 11/14/21 22:00 11/17/21 21:45 Atorvastatin 10 Mg Tablet PO 11/14/22 21:59 10 mg HS JULIANN Administration Clopidogrel Bisulfate 75 mg 11/15/21 09:00 11/18/21 09:04 Clopidogrel Bisulfate 75 Mg Tablet PO 11/15/22 08:59 75 mg DAILY JULIANN Administration Dextrose 0 gm 11/14/21 17:38 Dextrose 50% In Water 25 Gm/50 Ml Syringe IV-PUSH 11/14/22 17:37 PRN PRN Hypoglycemia Duloxetine HCl 60 mg 11/16/21 09:00 11/18/21 09:04 Duloxetine 60 Mg Capsule. PO 11/16/22 08:59 60 mg DAILY JULIANN Administration Ferrous Sulfate 324 mg 11/16/21 09:00 11/16/21 09:22 Ferrous Sulfate 324 Mg Tablet. PO 11/16/22 08:59 324 mg [id number] JULIANN Administration Folic Acid 1 mg 11/15/21 09:00 11/18/21 09:04 Folic Acid 1 Mg Tablet PO 11/15/22 08:59 1 mg DAILY JULIANN Administration Furosemide 40 mg 11/15/21 16:00 11/18/21 09:03 Furosemide 40 Mg/4 Ml Vial IV-PUSH 11/15/22 15:59 40 mg BID@0800,1600 JULIANN Administration Gabapentin 600 mg 11/15/21 21:00 11/17/21 21:45 Gabapentin 600 Mg Tablet PO 11/15/22 20:59 600 mg QPM JULIANN Administration Glucose 0 gm 11/14/21 17:38 Dextrose 40% Gel 15 Gm Tube PO 11/14/22 17:37 PRN PRN Hypoglycemia Heparin Sodium (Porcine) 5,000 unit 11/14/21 21:00 11/18/21 11:04 Heparin 5,000 Unit/Ml Vial SUBCUT 11/14/22 20:59 5,000 unit Q12HR JULIANN Administration Hydralazine HCl 10 mg 11/14/21 21:50 11/15/21 15:59 Hydralazine 20 Mg/Ml Vial IV-PUSH 11/14/22 21:49 10 mg Q4H PRN Administration Hypertension Meropenem 1 gm in 100 mls @ 200 mls/hr 11/15/21 06:00 11/18/21 06:08 Merrem IV 200 mls/hr Q12H JULIANN Administration Insulin Aspart 0 units 11/14/21 22:00 08/14/22 13:28 Insulin Aspart 300 Units/3 Ml Insuln.Pen SUBCUT 11/14/22 21:59 Not Given TID.WM.HS [facility] Protocol Insulin Detemir 42 units 11/15/21 09:00 11/18/21 09:04 Insulin Detemir 300 Units/3 Ml Insuln.Pen SUBCUT 11/15/22 08:59 42 units DAILY JULIANN Administration Losartan Potassium 50 mg 11/18/21 09:00 11/18/21 09:04 Losartan 50 Mg Tablet PO 11/18/22 08:59 50 mg DAILY JULIANN Administration Loteprednol Etabonate 1 drops 11/14/21 18:00 11/18/21 13:28 Loteprednol 0.5% Op Susp 100 Drops/5 Ml Bottle EYE-LEFT 11/14/22 17:59 1 drops QID JULIANN Administration Melatonin 5 mg 11/14/21 17:42 11/16/21 21:23 Melatonin 5 Mg Tablet PO 11/14/22 17:41 5 mg HS PRN Administration Insomnia Metoprolol Tartrate 5 mg 11/14/21 21:50 Metoprolol Tartrate 5 Mg/5 Ml Vial IV-PUSH 11/14/22 21:49 Q4H PRN Blood Pressure Nifedipine 30 mg 11/18/21 15:40 Nifedipine Er.24hr 30 Mg Tab.Er.24 PO 11/18/22 15:39 DAILY JULIANN Saccharomyces Boulardii 250 mg 11/15/21 08:00 11/18/21 09:04 Saccharomyces Boulardii 250 Mg Capsule PO 11/15/22 07:59 250 mg BID.WITH.MEALS JULIANN Administration Sodium Bicarbonate 650 mg 11/15/21 14:00 11/18/21 13:28 Sodium Bicarbonate 650 Mg Tablet PO 11/15/22 13:59 650 mg TID JULIANN Administration Sodium Chloride 0 ml 11/14/21 12:54 11/18/21 09:06 Sodium Chloride 0.9 % 10 Ml Syringe IV-PUSH 11/14/22 12:53 10 ml PRN PRN Administration Flush Sodium Chloride 0 ml 11/14/21 22:00 11/18/21 13:28 Sodium Chloride 0.9 % 10 Ml Syringe IV-PUSH 11/14/22 21:59 10 ml QSHIFT JULIANN Administration Sodium Hypochlorite 0 ml 11/14/21 21:00 11/18/21 09:05 Sodium Hypochlorite 0.25% 473 Ml Solution TOPICAL 11/14/22 20:59 473 ml BID JULIANN Administration Tamsulosin HCl 0.4 mg 11/14/21 21:00 11/18/21 11:04 Tamsulosin 0.4 Mg Cap.Er.24h PO 11/14/22 20:59 0.4 mg BID JULIANN Administration Vancomycin HCl 1 each 11/14/21 17:38 Vancomycin - Pharmacy Dosing 1 Each Miscell IV PRN PRN ZZ.Pharmacy Consult Protocol A&P - Hospitalist Assessment/Plan (1) Sepsis: (2) Diabetic foot ulcer: (3) TOM (acute kidney injury): (4) CKD (chronic kidney disease) stage 3, GFR 30-59 ml/min: (5) Type 2 diabetes mellitus with diabetic chronic kidney disease: (6) Osteomyelitis of foot: (7) Acute hyperkalemia: (8) PVD (peripheral vascular disease): Plan ? Continues to be afebrile and WBC is trending towards normal but still elevated. ?Heart rate also trending towards normal -Continue broad-spectrum antibiotics with vancomycin and Meropenem dosed by pharmacy ?Consult to infectious disease, cultures thus far remain negative. -Podiatry and vascular surgery on board, no acute intervention warranted. -Possible consideration of hyperbaric oxygen therapy -Continue current management DVT prophylaxis with heparin Full code ? Diabetic diet Documented By: Deo Benrabe DO 11/18/21 1541 Signed By: <Electronically signed by Deo Bernabe DO> 11/18/21 1544 [facility] Work Phone: Progress note Author Landon Grullon [facility] November 19, 2021 3:23pm Note Date/Time November 19, 2021 3: 09pm [facility] [address] [place] [address] Hospitalist Progress Note Signed Patient: Simon Lott MR#: [id number] : 1950 Acct:[id number] Age/Sex: 71 / M Adm Date: 2 Loc: Room: [address] [place] [address] Type: ADM IN Attending Dr: Landon Grullon MD Copies to: ~ Date of Service: 11/19/2021 Subjective Subjective Narrative: Patient seen and assessed at bedside today. He notes no major complaints at this time. He does ask why he is currently still in the hospital. I did explain to him regarding his IV antibiotics and concern for left-sided hydronephrosis. CT of the abdomen and pelvis repeated today is still pending read at the time of my assessment. Exam Physical Exam Vital Signs: Temp Pulse Resp BP Pulse Ox O2 Del Method 97.7 F 99 H 18 141/86 H 95 Room Air 11/19/21 07:48 11/19/21 07:48 11/19/21 07:48 11/19/21 07:48 11/19/21 07:48 11/19/21 08:00 Narrative: Constitutional: Elderly AA male, resting in bed in no acute distress HEENT: Moist mucous membranes, neck supple, no JVD Cardiovascular: RRR, no M/R/G, normal S1 and S2 Respiratory: Clear to auscultation bilaterally, no wheezes, rales or rhonchi GI: Soft, NTND, NABS, no rebound tenderness or guarding : Sanchez catheter in place Extremities: Bilateral lower extremities indurated with stasis dermatitis changes bilaterally in the distal legs. Feet are wrapped bilaterally in dressings covering patient's chronic wounds. Not visualized on today's examination Neuro: AAOx3, no focal deficits. Strength 5/5 throughout Skin: Chronic wounds on the feet bilaterally Psych: Calm, cooperative and conversant Objective Lab Results CBC & Chem 7: 11/19/21 05:39 11/19/21 05:39 Microbiology Results Microbiology 11/14/21 13:23 Blood - Right Hand Blood Culture - Final NO GROWTH 5 DAYS 11/14/21 13:00 Blood - Right Antecubital Blood Culture - Final NO GROWTH 5 DAYS Meds Allergies and Active Meds Allergies codeine Allergy (Verified 05/18/21 09:55) Unknown Reaction lisinopril Allergy (Verified 05/18/21 09:55) Swelling of Lip/Tongue/Throat Active Meds: Active Medications Generic Name Dose Route Start Last Admin Trade Name Freq PRN Reason Stop Dose Admin Acarbose 100 mg 11/15/21 08:00 11/19/21 08:48 Acarbose 50 Mg Tablet PO 11/15/22 07:59 100 mg TID.WITH.MEALS JULIANN Administration Acetaminophen 650 mg 11/14/21 17:42 11/15/21 18:15 Acetaminophen 325 Mg Tablet PO 11/14/22 17:41 650 mg Q4H PRN Administration Pain Amitriptyline HCl 10 mg 11/14/21 22:00 11/18/21 21:39 Amitriptyline 10 Mg Tablet PO 11/14/22 21:59 10 mg HS JULIANN Administration Ammonium Lactate 1 applic 11/14/21 22:00 11/19/21 06:53 Ammonium Lactate 12% Lot 226 Gm Bottle TOPICAL 11/14/22 21:59 1 applic QSHIFT JULIANN Administration Ascorbic Acid 500 mg 11/15/21 09:00 11/19/21 08:49 Ascorbic Acid 500 Mg Tablet PO 11/15/22 08:59 500 mg DAILY JULIANN Administration Atorvastatin Calcium 10 mg 11/14/21 22:00 11/18/21 21:39 Atorvastatin 10 Mg Tablet PO 11/14/22 21:59 10 mg HS JULIANN Administration Clopidogrel Bisulfate 75 mg 11/15/21 09:00 11/19/21 08:49 Clopidogrel Bisulfate 75 Mg Tablet PO 11/15/22 08:59 75 mg DAILY JULIANN Administration Dextrose 0 gm 11/14/21 17:38 Dextrose 50% In Water 25 Gm/50 Ml Syringe IV-PUSH 11/14/22 17:37 PRN PRN Hypoglycemia Duloxetine HCl 60 mg 11/16/21 09:00 11/19/21 08:49 Duloxetine 60 Mg Capsule. PO 11/16/22 08:59 60 mg DAILY JULIANN Administration Ferrous Sulfate 324 mg 11/16/21 09:00 11/19/21 08:50 Ferrous Sulfate 324 Mg Tablet. PO 11/16/22 08:59 324 mg [email or web address] JULIANN Administration Folic Acid 1 mg 11/15/21 09:00 11/19/21 08:50 Folic Acid 1 Mg Tablet PO 11/15/22 08:59 1 mg DAILY JULIANN Administration Furosemide 40 mg 11/15/21 16:00 11/19/21 08:49 Furosemide 40 Mg/4 Ml Vial IV-PUSH 11/15/22 15:59 40 mg BID@0800,1600 JULIANN Administration Gabapentin 600 mg 11/15/21 21:00 11/18/21 21:39 Gabapentin 600 Mg Tablet PO 11/15/22 20:59 600 mg QPM JULIANN Administration Glucose 0 gm 11/14/21 17:38 Dextrose 40% Gel 15 Gm Tube PO 11/14/22 17:37 PRN PRN Hypoglycemia Heparin Sodium (Porcine) 5,000 unit 11/14/21 21:00 11/19/21 08:49 Heparin 5,000 Unit/Ml Vial SUBCUT 11/14/22 20:59 5,000 unit Q12HR JULIANN Administration Hydralazine HCl 10 mg 11/14/21 21:50 11/15/21 15:59 Hydralazine 20 Mg/Ml Vial IV-PUSH 11/14/22 21:49 10 mg Q4H PRN Administration Hypertension Meropenem 1 gm in 100 mls @ 200 mls/hr 11/15/21 06:00 11/19/21 05:10 Merrem IV 200 mls/hr Q12H JULIANN Administration Insulin Aspart 0 units 11/14/21 22:00 11/19/21 08:37 Insulin Aspart 300 Units/3 Ml Insuln.Pen SUBCUT 11/14/22 21:59 Not Given TID.WM.HS [facility] Protocol Insulin Detemir 42 units 11/15/21 09:00 11/19/21 08:50 Insulin Detemir 300 Units/3 Ml Insuln.Pen SUBCUT 11/15/22 08:59 42 units DAILY JULIANN Administration Losartan Potassium 50 mg 11/18/21 09:00 11/19/21 08:49 Losartan 50 Mg Tablet PO 11/18/22 08:59 50 mg DAILY JULIANN Administration Loteprednol Etabonate 1 drops 11/14/21 18:00 11/19/21 08:50 Loteprednol 0.5% Op Susp 100 Drops/5 Ml Bottle EYE-LEFT 11/14/22 17:59 1 drops QID JULIANN Administration Melatonin 5 mg 11/14/21 17:42 11/16/21 21:23 Melatonin 5 Mg Tablet PO 11/14/22 17:41 5 mg HS PRN Administration Insomnia Metoprolol Tartrate 5 mg 11/14/21 21:50 Metoprolol Tartrate 5 Mg/5 Ml Vial IV-PUSH 11/14/22 21:49 Q4H PRN Blood Pressure Nifedipine 30 mg 11/18/21 15:40 11/19/21 08:49 Nifedipine Er.24hr 30 Mg Tab.Er.24 PO 11/18/22 15:39 30 mg DAILY JULIANN Administration Saccharomyces Boulardii 250 mg 11/15/21 08:00 11/19/21 08:50 Saccharomyces Boulardii 250 Mg Capsule PO 11/15/22 07:59 250 mg BID.WITH.MEALS JULIANN Administration Sodium Bicarbonate 650 mg 11/15/21 14:00 11/19/21 08:49 Sodium Bicarbonate 650 Mg Tablet PO 11/15/22 13:59 650 mg TID JULIANN Administration Sodium Chloride 0 ml 11/14/21 12:54 11/18/21 09:06 Sodium Chloride 0.9 % 10 Ml Syringe IV-PUSH 11/14/22 12:53 10 ml PRN PRN Administration Flush Sodium Chloride 0 ml 11/14/21 22:00 11/19/21 06:53 Sodium Chloride 0.9 % 10 Ml Syringe IV-PUSH 11/14/22 21:59 10 ml QSHIFT JULIANN Administration Sodium Hypochlorite 0 ml 11/14/21 21:00 11/19/21 08:38 Sodium Hypochlorite 0.25% 473 Ml Solution TOPICAL 11/14/22 20:59 Not Given BID JULIANN Tamsulosin HCl 0.4 mg 11/14/21 21:00 11/19/21 08:49 Tamsulosin 0.4 Mg Cap.Er.24h PO 11/14/22 20:59 0.4 mg BID JULIANN Administration Vancomycin HCl 1 each 11/14/21 17:38 Vancomycin - Pharmacy Dosing 1 Each Miscell IV PRN PRN ZZ.Pharmacy Consult Protocol A&P - Hospitalist Assessment/Plan (1) Sepsis: (2) Diabetic foot ulcer: (3) TOM (acute kidney injury): (4) CKD (chronic kidney disease) stage 3, GFR 30-59 ml/min: (5) Type 2 diabetes mellitus with diabetic chronic kidney disease: (6) Osteomyelitis of foot: (7) Acute hyperkalemia: (8) PVD (peripheral vascular disease): (9) Hydroureteronephrosis: Plan -Hydronephrosis is visualized on CT of the abdomen and this will repeat CT today ?WBC does continue to improve, did discuss with Dr. Pitt today and if repeat CTof the abdomen and pelvis does not continue to demonstrate hydronephrosis we will plan on 2-week course of antibiotic therapy -Consult urology if hydroureter persists -Continue broad-spectrum antibiotics with IV vancomycin and Meropenem dosed by pharmacy ? Appreciate infectious disease recommendations -Podiatry and vascular surgery on board, no surgical intervention warranted by patient at this time -Possible consideration of hyperbaric oxygen therapy -Continue current management DVT prophylaxis: SubQ heparin CODE STATUS: Full code Documented By: Landon Grullon MD 2 [id number] Signed By: <Electronically signed by Landon Grullon MD> 11/19/21 1523 [facility] Work Phone: Progress note Author [facility] November 19, 2021 11:24pm Note Date/Time November 19, 2021 11 :05pm [facility] [address] [place] [address] Nephrology Progress Note Signed Patient: Simon Lott MR#: [id number] : 1950 Acct:[id number] Age/Sex: 71 / M Adm Date: 2 Loc: Room: [address] [place] [address] Type: ADM IN Attending Dr: Landon Grullon MD Copies to: ~ Date of Service: 11/19/2021 Subjective Subjective Narrative: Mr. Lott is a 71-year male with medical history of CKD, diabetes mellitus, hypertension, anemia, secondary hyperparathyroidism, alcoholic liver disease, PAD, diabetic foot ulcer, CVA, hepatitis C and nephrolithiasis. [facility] was transferred [facility] the [facility] due to the fever. In ER, he was found to hve hyperkalemia serum potassium 6.1 mg/L and metabolic acidosis with serum bicarbonate 17 mmol/L. Patient was also noted to have a leukocytosis and tachycardia. He had a Right foot x-ray which showed finding concerning for osteomyelitis of the fifth metatarsal bone. Patient was given IV fluid and was started on broad-spectrum antibiotics for diabetic foot infection and sepsis. Patient was given sodium bicarbonate, insulin with D50 and Lokelma in the emergency room for hyperkalemia. On review record it appears that patient has a longstanding CKD with baseline creatinine around 3.2?3.5 mg/dL. His renal function has been declining due to the progression of his CKD. He used to follow uo in our [facility] for CKD care but missed the last appointment. Nephrology is consulted for his CKD, fluid overload, hyperkalemia and metabolic acidosis management. Interval history: Patient was seen and examined in his room. He is awake and denies any complaints. Fluid overload and serum potassium went back to normal with diuresis and correction of acidosis. He is currently on oral sodium bicarbonate and Lasix. Losartan 50 mg daily was added at the blood pressure still elevated despite diuresis. Creatinine is about the same 3 to 3.5 mg/dL. Potassium 3.4 mmol/L despite losartan. He was seen by the vascular surgery for infected right foot. Vascular surgery recommended nonurgent BKA or AKA due to his severe PAD. He was also seen by thepodiatry and option of hyperbaric oxygen was discussed as patient is refusing BKA. He is currently on empiric meropenem. CT scan of the abdomen that was done on admission showed evidence of left hydronephrosis and hydroureter on 11/15. Patient had a repeat CT scan of the abdomen today that showed persistent left hydronephrosis and hydroureter. Urology was consulted. He is feeling better today denies any chest pain palpitation cough nausea vomit diarrhea and shortness of breath. Exam Physical Exam Vital Signs: Temp Pulse Resp BP Pulse Ox O2 Del Method 37.0 C 103 H 16 153/82 H 95 Room Air 11/19/21 20:00 11/19/21 20:00 11/19/21 20:00 11/19/21 20:00 11/19/21 20:00 11/19/21 20:00 Narrative: Constitutional: AA male,, looks at his stated age resting in bed in no acute distress HEENT: Moist mucous membranes, neck supple, no JVD Cardiovascular: Distant heart sound, RRR, normal S1 and S2. No murmur or rub. Respiratory: Clear to auscultation bilaterally, no wheezes, rales or rhonchi GI: Soft, nontender with no palpable organs or masses. : Sanchez catheter in place Extremities: Both feet and dressing covering chronic wounds. Bilateral lower extremities indurated with stasis dermatitis changes bilaterally in the distal legs. Neuro: AAOx3, no focal deficits. Strength 5/5 throughout Skin: Chronic wounds on the feet bilaterally Psych: Calm, cooperative and conversant Objective Intake and Output I&O: Intake & Output 11/16/21 11/17/21 11/18/21 11/19/21 23:59 23:59 23:59 23:59 Intake Total 1680 / 1680 1110 / 1110 1600 / 1600 1000 / 1000 Output Total 3725 / 3725 3400 / 3400 3200 / 3200 2425 / 2425 Balance -2045 / -2045 -2290 / -2290 -1600 / -1600 -1425 / -1425 Weight 114.8 kg 110 kg 111.1 kg Meds and Allergies Meds: Active Medications Acarbose (Acarbose 50 Mg Tablet) 100 mg PO TID.WITH.MEALS JULIANN Stop: 11/15/22 07:59 Last Admin: 11/19/21 18:18 Dose: 100 mg Acetaminophen (Acetaminophen 325 Mg Tablet) 650 mg PO Q4H PRN PRN Reason: Pain Stop: 11/14/22 17:41 Last Admin: 11/15/21 18:15 Dose: 650 mg Amitriptyline HCl (Amitriptyline 10 Mg Tablet) 10 mg PO HS JULIANN Stop: 11/14/22 21:59 Last Admin: 11/19/21 21:45 Dose: 10 mg Ammonium Lactate (Ammonium Lactate 12% Lot 226 Gm Bottle) 1 applic TOPICAL QSHIFT JULIANN Stop: 11/14/22 21:59 Last Admin: 11/19/21 21:46 Dose: 1 applic Ascorbic Acid (Ascorbic Acid 500 Mg Tablet) 500 mg PO DAILY JULIANN Stop: 11/15/22 08:59 Last Admin: 11/19/21 08:49 Dose: 500 mg Atorvastatin Calcium (Atorvastatin 10 Mg Tablet) 10 mg PO HS JULIANN Stop: 11/14/22 21:59 Last Admin: 11/19/21 21:45 Dose: 10 mg Clopidogrel Bisulfate (Clopidogrel Bisulfate 75 Mg Tablet) 75 mg PO DAILY JULIANN Stop: 11/15/22 08:59 Last Admin: 11/19/21 08:49 Dose: 75 mg Dextrose (Dextrose 50% In Water 25 Gm/50 Ml Syringe) 0 gm IV-PUSH PRN PRN PRN Reason: Hypoglycemia Stop: 11/14/22 17:37 Duloxetine HCl (Duloxetine 60 Mg Capsule.Dr) 60 mg PO DAILY JULIANN Stop: 11/16/22 08:59 Last Admin: 08/15/22 08:49 Dose: 60 mg Ferrous Sulfate (Ferrous Sulfate 324 Mg Tablet.Dr) 324 mg PO MoWeFr@0900 [facility] Stop: 11/16/22 08:59 Last Admin: 11/19/21 08:50 Dose: 324 mg Folic Acid (Folic Acid 1 Mg Tablet) 1 mg PO DAILY [facility] Stop: 11/15/22 08:59 Last Admin: 11/19/21 08:50 Dose: 1 mg Furosemide (Furosemide 40 Mg/4 Ml Vial) 40 mg IV-PUSH BID@0800,1600 [facility] Stop: 11/15/22 15:59 Last Admin: 11/19/21 16:43 Dose: 40 mg Gabapentin (Gabapentin 600 Mg Tablet) 600 mg PO QPM [facility] Stop: 11/15/22 20:59 Last Admin: 11/19/21 21:45 Dose: 600 mg Glucose (Dextrose 40% Gel 15 Gm Tube) 0 gm PO PRN PRN PRN Reason: Hypoglycemia Stop: 11/14/22 17:37 Heparin Sodium (Porcine) (Heparin 5,000 Unit/Ml Vial) 5,000 unit SUBCUT Q12HR [facility] Stop: 11/14/22 20:59 Last Admin: 11/19/21 21:46 Dose: 5,000 unit Hydralazine HCl (Hydralazine 20 Mg/Ml Vial) 10 mg IV-PUSH Q4H PRN PRN Reason: Hypertension Stop: 11/14/22 21:49 Last Admin: 11/15/21 15:59 Dose: 10 mg Meropenem (Merrem) 1 gm in 100 mls @ 200 mls/hr IV Q12H [facility] Last Admin: 11/19/21 18:18 Dose: 200 mls/hr Insulin Aspart (Insulin Aspart 300 Units/3 Ml Insuln.Pen) 0 units SUBCUT TID.WM.HS [facility]; Protocol Stop: 11/14/22 21:59 Last Admin: 11/19/21 21:46 Dose: Not Given Insulin Detemir (Insulin Detemir 300 Units/3 Ml Insuln.Pen) 42 units SUBCUT DAILY [facility] Stop: 11/15/22 08:59 Last Admin: 11/19/21 08:50 Dose: 42 units Losartan Potassium (Losartan 50 Mg Tablet) 50 mg PO DAILY [facility] Stop: 11/18/22 08:59 Last Admin: 11/19/21 08:49 Dose: 50 mg Loteprednol Etabonate (Loteprednol 0.5% Op Susp 100 Drops/5 Ml Bottle) 1 drops EYE-LEFT QID [facility] Stop: 11/14/22 17:59 Last Admin: 11/19/21 21:45 Dose: 1 drops Melatonin (Melatonin 5 Mg Tablet) 5 mg PO HS PRN PRN Reason: Insomnia Stop: 11/14/22 17:41 Last Admin: 11/16/21 21:23 Dose: 5 mg Metoprolol Tartrate (Metoprolol Tartrate 5 Mg/5 Ml Vial) 5 mg IV-PUSH Q4H PRN PRN Reason: Blood Pressure Stop: 11/14/22 21:49 Nifedipine (Nifedipine Er.24hr 30 Mg Tab.Er.24) 30 mg PO DAILY [facility] Stop: 11/18/22 15:39 Last Admin: 11/19/21 08:49 Dose: 30 mg Saccharomyces Boulardii (Saccharomyces Boulardii 250 Mg Capsule) 250 mg PO BID.WITH.MEALS [facility] Stop: 11/15/22 07:59 Last Admin: 11/19/21 18:18 Dose: 250 mg Sodium Bicarbonate (Sodium Bicarbonate 650 Mg Tablet) 650 mg PO TID JULIANN Stop: 11/15/22 13:59 Last Admin: 11/19/21 21:45 Dose: 650 mg Sodium Chloride (Sodium Chloride 0.9 % 10 Ml Syringe) 0 ml IV-PUSH PRN PRN PRN Reason: Flush Stop: 11/14/22 12:53 Last Admin: 11/18/21 09:06 Dose: 10 ml Sodium Chloride (Sodium Chloride 0.9 % 10 Ml Syringe) 0 ml IV-PUSH QSHIFT JULIANN Stop: 11/14/22 21:59 Last Admin: 11/19/21 21:47 Dose: 10 ml Sodium Hypochlorite (Sodium Hypochlorite 0.25% 473 Ml Solution) 0 ml TOPICAL BID [facility] Stop: 11/14/22 20:59 Last Admin: 11/19/21 21:46 Dose: Not Given Tamsulosin HCl (Tamsulosin 0.4 Mg Cap.Er.24h) 0.4 mg PO BID JULIANN Stop: 11/14/22 20:59 Last Admin: 11/19/21 21:45 Dose: 0.4 mg Vancomycin HCl (Vancomycin - Pharmacy Dosing 1 Each Miscell) 1 each IV PRN PRN; Protocol PRN Reason: NORMA.Pharmacy Consult Allergies codeine Allergy (Verified 05/18/21 09:55) Unknown Reaction lisinopril Allergy (Verified 05/18/21 09:55) Swelling of Lip/Tongue/Throat Results Labs CBC & Chem 7: 11/19/21 05:39 11/19/21 05:39 Labs: 11/19/21 05:39 BUN 40 H Creatinine 3.38 H Radiology Impressions Impressions - last 24 hours: Impressions Abdomen/Pelvis CT 11/19/21 08:57 IMPRESSION: Similar LEFT hydronephrosis and proximal hydroureter. No ureteral stone. LEFT nephrolithiasis. Similar inguinal lymphadenopathy. Impression dictated by: Fawad Nicholson M.D.11/19/2021 3:27 PM Dictation Location: [place] [address] Any impression(s) listed above is documentation that was entered by the reading physician into a diagnostic report(s) for [facility]. I have reviewed the report(s) and am incorporating any findings in the treatment plan of this patient where applicable. A&P - Nephrology Assessment/Plan (1) Hydronephrosis, left: Assessment/Problem Details: He has had persistent left hydronephrosis and hydroureter. He has a history of bilateral nephrolithiasis s/p intervention in 07/[address] Giles. Serum creatinine is slightly worse than baseline 2.5 mg/dL in the setting of osteoarthritis however he also has obstructive uropathy. Urology was consulted and the patient is going to have cystoscopy and retrograde venogram with possible stent placement. (2) High anion gap metabolic acidosis: Assessment/Problem Details: He had metabolic acidosis likely due to the CKD. He has no evidence of lactic acidosis of ketoacidosis. His acidosis corrected with diuresis and sodium bicarbonate (3) Hyperkalemia: Assessment/Problem Details: He has hyperkalemia and due to the combination of the CKD, metabolic acidosis, potassium supplement and losartan. His potassium is back to normal with the Lasix and correction of acidosis. Patient has been tolerating losartan well. (4) CKD (chronic kidney disease) stage 4, GFR 15-29 ml/min: Assessment/Problem Details: He has a CKD due to the diabetic kidney disease and hypertensive nephrosclerosis. Baseline creatinine has been there was between 2.5 to 3 mg/dL. (5) Sepsis: Assessment/Problem Details: He has a sepsis likely due to the diabetic foot infection. His x-ray foot showed evidence of the osteomyelitis. Podiatry and vascular surgery has been consulted. (6) Hypertensive chronic kidney disease with stage 1 through stage 4 chronic kidney disease, or unspecified chronic kidney disease: Assessment/Problem Details: His blood pressure is high with persistent edema on furosemide (7) Type 2 diabetes mellitus with diabetic chronic kidney disease: Assessment/Problem Details: He has insulin-dependent type 2 diabetes mellitus currently using insulin Levemir at home. (8) Anemia: Assessment/Problem Details: He has a anemia likely due to the chronic infection, CKD and iron deficiency. His hemoglobin is low but stable. His serum free light chain ratio, serum immunofixation and SPEP are unremarkable. Plan * Continue Lasix 40 mg IV twice daily that will be switched to oral furosemide 40 mg twice a day tomorrow. * Continue 50 mg daily. Will monitor serum potassium closely due to the hyperkalemia. Patient used to be on oral potassium supplement but currently on hold. * Continue oral sodium bicarbonate 650 mg mg p.o. 3 times daily * Continue oral iron. Due to the active infection we will avoid IV iron. Will follow UPEP and urine immunofixation that is less likely to be positive since he has normal kappa/lambda ratio. * Continue meropenem, pharmacy dose according to renal status. * Urology was consulted, patient is going to have cystoscopy and retrograde pyelogram with possible stent placement for maximal decompression of left hy dronephrosis to see if renal function will improve. * Continue insulin and adjust the dose as needed keep the blood sugar between 100 to 150 mg/dL. * Check renal function daily and monitor input output. Documented By: Johan Taylor MD 11/19/212301 Signed By: <Electronically signed by MD Johan Taylor> 11/19/21 [id number] Work Phone: Progress note Author Riya Pitt [facility] November 20, 2021 7:34am Note Date/Time November 20, 2021 7: 34am [facility] [address] [place] [address] Infect. Disease Progress Note Signed Patient: Simon Lott MR#: [id number] : 1950 Acct:[id number] Age/Sex: 71 / M Adm Date: 2 Loc: 4P Room: [address] [place] [address] Type: ADM IN Attending Dr: Landon Grullon MD Copies to: ~ Date of Service: 11/20/2021 Subjective Interval history: Patient states he did not sleep well last night but has no new physical complaints. Exam Physical Exam Vital Signs: Temp Pulse Resp BP Pulse Ox O2 Del Method 98.5 F 101 H 16 154/79 H 93 L Room Air 11/20/21 04:00 11/20/21 04:00 11/20/21 04:00 11/20/21 04:00 11/20/21 04:00 11/20/21 04:00 Const General: cooperative and no acute distress Orientation: oriented x3 HEENT Head: normal to inspection Eyes General: appearance normal, both eyes and all related structures Neck Neck: normal visual inspection Chest Chest palpation & inspection: normal inspection of the chest Resp Effort & Inspection: normal respiratory effort Cardio Palpation: normal PMI Rate: regular rate Rhythm: regular rhythm GI Inspection: normal to inspection Palpation: soft Auscultation: normal bowel sounds Skin General: other (chronic RLE skin changes; warm to touch) Neuro General: patient oriented x3 Extrem General: edema Objective Labs CBC/BMP: CBC, BMP 11/19/21 11/20/21 11/20/21 05:39 05:54 05:54 Corrected WBC 14.8 H 14.6 H Uncorrected WBC Count 14.8 H 14.6 H RBC 3.02 L 2.85 L Hgb 8.2 L 7.7 L Hct 25.8 L 24.4 L Plt Count 227 240 Sodium 136 Potassium 3.5 Chloride 106 Carbon Dioxide 22.7 BUN 41 H Creatinine 3.43 H Calcium 7.6 L Labs: 11/20/21 05:54 BUN 41 H Creatinine 3.43 H Microbiology Microbiology: Microbiology - Results from entire visit 11/14/21 13:23 Blood - Right Hand Blood Culture - Final NO GROWTH 5 DAYS 11/14/21 13:00 Blood - Right Antecubital Blood Culture - Final NO GROWTH 5 DAYS 11/14/21 14:36 Clean Void Midstream Urine Culture - Final No Growth 2 Days 11/14/21 13:30 Nasal SARS Antigen (LFIA) - Final Allergies and Medications Allergies and Active Meds Allergies codeine Allergy (Verified 05/18/21 09:55) Unknown Reaction lisinopril Allergy (Verified 05/18/21 09:55) Swelling of Lip/Tongue/Throat Active Medications Acarbose (Acarbose 50 Mg Tablet) 100 mg PO TID.WITH.MEALS JULIANN Stop: 11/15/22 07:59 Last Admin: 11/19/21 18:18 Dose: 100 mg Acetaminophen (Acetaminophen 325 Mg Tablet) 650 mg PO Q4H PRN PRN Reason: Pain Stop: 11/14/22 17:41 Last Admin: 11/15/21 18:15 Dose: 650 mg Amitriptyline HCl (Amitriptyline 10 Mg Tablet) 10 mg PO HS JULIANN Stop: 11/14/22 21:59 Last Admin: 11/19/21 21:45 Dose: 10 mg Ammonium Lactate (Ammonium Lactate 12% Lot 226 Gm Bottle) 1 applic TOPICAL QSHIFT JULIANN Stop: 11/14/22 21:59 Last Admin: 11/20/21 05:47 Dose: 1 applic Ascorbic Acid (Ascorbic Acid 500 Mg Tablet) 500 mg PO DAILY JULIANN Stop: 11/15/22 08:59 Last Admin: 11/19/21 08:49 Dose: 500 mg Atorvastatin Calcium (Atorvastatin 10 Mg Tablet) 10 mg PO HS JULIANN Stop: 11/14/22 21:59 Last Admin: 11/19/21 21:45 Dose: 10 mg Clopidogrel Bisulfate (Clopidogrel Bisulfate 75 Mg Tablet) 75 mg PO DAILY JULIANN Stop: 11/15/22 08:59 Last Admin: 11/19/21 08:49 Dose: 75 mg Dextrose (Dextrose 50% In Water 25 Gm/50 Ml Syringe) 0 gm IV-PUSH PRN PRN PRN Reason: Hypoglycemia Stop: 11/14/22 17:37 Duloxetine HCl (Duloxetine 60 Mg Capsule.) 60 mg PO DAILY JULIANN Stop: 11/16/22 08:59 Last Admin: 11/19/21 08:49 Dose: 60 mg Ferrous Sulfate (Ferrous Sulfate 324 Mg Tablet.) 324 mg PO MoWeFr@0900 JULIANN Stop: 11/16/22 08:59 Last Admin: 11/19/21 08:50 Dose: 324 mg Folic Acid (Folic Acid 1 Mg Tablet) 1 mg PO DAILY JULIANN Stop: 11/15/22 08:59 Last Admin: 11/19/21 08:50 Dose: 1 mg Furosemide (Furosemide 40 Mg/4 Ml Vial) 40 mg IV-PUSH BID@0800,1600 [facility] Stop: 11/15/22 15:59 Last Admin: 11/19/21 16:43 Dose: 40 mg Gabapentin (Gabapentin 600 Mg Tablet) 600 mg PO QPM JULIANN Stop: 11/15/22 20:59 Last Admin: 11/19/21 21:45 Dose: 600 mg Glucose (Dextrose 40% Gel 15 Gm Tube) 0 gm PO PRN PRN PRN Reason: Hypoglycemia Stop: 11/14/22 17:37 Heparin Sodium (Porcine) (Heparin 5,000 Unit/Ml Vial) 5,000 unit SUBCUT Q12HR JULIANN Stop: 11/14/22 20:59 Last Admin: 11/19/21 21:46 Dose: 5,000 unit Hydralazine HCl (Hydralazine 20 Mg/Ml Vial) 10 mg IV-PUSH Q4H PRN PRN Reason: Hypertension Stop: 11/14/22 21:49 Last Admin: 11/15/21 15:59 Dose: 10 mg Meropenem (Merrem) 1 gm in 100 mls @ 200 mls/hr IV Q12H [facility] Last Admin: 11/20/21 05:47 Dose: 200 mls/hr Insulin Aspart (Insulin Aspart 300 Units/3 Ml Insuln.Pen) 0 units SUBCUT TID.WM.HS [facility]; Protocol Stop: 11/14/22 21:59 Last Admin: 11/19/21 21:46 Dose: Not Given Insulin Detemir (Insulin Detemir 300 Units/3 Ml Insuln.Pen) 42 units SUBCUT DAILY [facility] Stop: 11/15/22 08:59 Last Admin: 11/19/21 08:50 Dose: 42 units Losartan Potassium (Losartan 50 Mg Tablet) 50 mg PO DAILY [facility] Stop: 11/18/22 08:59 Last Admin: 11/19/21 08:49 Dose: 50 mg Loteprednol Etabonate (Loteprednol 0.5% Op Susp 100 Drops/5 Ml Bottle) 1 drops EYE-LEFT QID [facility] Stop: 11/14/22 17:59 Last Admin: 11/19/21 21:45 Dose: 1 drops Melatonin (Melatonin 5 Mg Tablet) 5 mg PO HS PRN PRN Reason: Insomnia Stop: 11/14/22 17:41 Last Admin: 11/16/21 21:23 Dose: 5 mg Metoprolol Tartrate (Metoprolol Tartrate 5 Mg/5 Ml Vial) 5 mg IV-PUSH Q4H PRN PRN Reason: Blood Pressure Stop: 11/14/22 21:49 Nifedipine (Nifedipine Er.24hr 30 Mg Tab.Er.24) 30 mg PO DAILY JULIANN Stop: 11/18/22 15:39 Last Admin: 11/19/21 08:49 Dose: 30 mg Saccharomyces Boulardii (Saccharomyces Boulardii 250 Mg Capsule) 250 mg PO BID.WITH.MEALS JULIANN Stop: 11/15/22 07:59 Last Admin: 11/19/21 18:18 Dose: 250 mg Sodium Bicarbonate (Sodium Bicarbonate 650 Mg Tablet) 650 mg PO TID JULIANN Stop: 11/15/22 13:59 Last Admin: 11/19/21 21:45 Dose: 650 mg Sodium Chloride (Sodium Chloride 0.9 % 10 Ml Syringe) 0 ml IV-PUSH PRN PRN PRN Reason: Flush Stop: 11/14/22 12:53 Last Admin: 11/18/21 09:06 Dose: 10 ml Sodium Chloride (Sodium Chloride 0.9 % 10 Ml Syringe) 0 ml IV-PUSH QSHIFT JULIANN Stop: 11/14/22 21:59 Last Admin: 11/20/21 05:47 Dose: 10 ml Sodium Hypochlorite (Sodium Hypochlorite 0.25% 473 Ml Solution) 0 ml TOPICAL BID JULIANN Stop: 11/14/22 20:59 Last Admin: 11/19/21 21:46 Dose: Not Given Tamsulosin HCl (Tamsulosin 0.4 Mg Cap.Er.24h) 0.4 mg PO BID JULIANN Stop: 11/14/22 20:59 Last Admin: 11/19/21 21:45 Dose: 0.4 mg Vancomycin HCl (Vancomycin - Pharmacy Dosing 1 Each Miscell) 1 each IV PRN PRN; Protocol PRN Reason: ZZ.Pharmacy Consult A&P - Infectious Disease Assessment/Plan (1) Diabetic foot ulcer: Code(s): E11.621 - Type 2 diabetes mellitus with foot ulcer; L97.509 - Non-pressure chronic ulcer of other part of unspecified foot with unspecified severity Status: Chronic (2) TOM (acute kidney injury): Code(s): N17.9 - Acute kidney failure, unspecified Status: Acute (3) Leukocytosis: Code(s): D72.829 - Elevated white blood cell count, unspecified Status: Acute (4) Cellulitis and abscess of right leg: Code(s): L03.115 - Cellulitis of right lower limb; L02.415 - Cutaneous abscess of right lower limb Status: Acute (5) PAD (peripheral artery disease): Code(s): I73.9 - Peripheral vascular disease, unspecified Status: Acute (6) Lab test positive for detection of COVID-19 virus: Code(s): U07.1 - COVID-19 Status: Acute Plan Patient had evidence of cellulitis of the right lower extremity that is documented which seems to be improving as on exam today it is warm but not significantly erythematous. He does have a chronic nonhealing right foot wound which is likely due to his underlying diabetes and poor vascular supply. He is not a candidate for vascular revascularization and patient is not willing to accept amputation. He has been on vancomycin and meropenem for skin and soft tissue infection. Podiatry is also evaluated the patient and feels no surgical indication is needed at this time. He is being treated for cellulitis/wound infection. He does have a acute on chronic kidney injury and CT scan done earlier this hospital stay shows left hydronephrosis and hydroureter that appeared to be new. He is having good urine output now with Sanchez catheter in place. CT scan continues to show same hydroureter and hydronephrosis. Urology input appreciated. They would like to do cystoscopy with possible stent placement. We will change meropenem to ertapenem. Maintain vancomycin for skin and soft tissue right lower extremity cellulitis.. Of note patient's COVID test did come back positive but he has no respiratory symptoms. Documented By: Riya Pitt MD 11/20/21 0732 Signed By: <Electronically signed by MD Riya Pitt> 11/20/21 0734 [facility] Work Phone: Progress note Author Landon Grullon [facility] November 20, 2021 4:01pm Note Date/Time November 20, 2021 1: 41pm [facility] [address] [place] [address] Hospitalist Progress Note Signed Patient: Simon Lott MR#: [id number] : 1950 Acct:[id number] Age/Sex: 71 / M Adm Date: 2 Loc: Room: 8V8313-1 Type: ADM IN Attending Dr: Landon Grullon MD Copies to: ~ Date of Service: 11/20/2021 Subjective Subjective Narrative: Patient seen and assessed at bedside today. He notes no significant pain or discomfort. He is eagerly awaiting PICC line placement, as he would like to be [facility]. No acute events were noted overnight. I did discuss with him regarding CT abdominal findings of narrowing of the ureter on the right side. I did report that given his COVID-19 positivity, he is at increased risk for perioperative complication. At this time, he is not interested in further inpatient treatment of this condition. [place] no abdominal pain, dysuria, hematuria and Sanchez catheter is in place draining clear, yellow urine. Exam Physical Exam Vital Signs: Temp Pulse Resp BP Pulse Ox O2 Del Method 97.6 F 92 H 20 149/83 H 95 Room Air 11/20/21 11:47 11/20/21 11:47 11/20/21 11:47 11/20/21 11:47 11/20/21 11:47 11/20/21 11:47 Narrative: Constitutional: Elderly AA male, resting in bed in no acute distress HEENT: Moist mucous membranes, neck supple, no JVD Cardiovascular: RRR, no M/R/G, normal S1 and S2 Respiratory: Clear to auscultation bilaterally, no wheezes, rales or rhonchi GI: Soft, NTND, NABS, no rebound tenderness or guarding : Sanchez catheter in place Extremities: Bilateral lower extremities indurated with stasis dermatitis changes bilaterally in the distal legs. Feet are wrapped bilaterally in dressings covering patient's chronic wounds. Not visualized on today's examination Neuro: AAOx3, no focal deficits. Strength 5/5 throughout Skin: Chronic wounds on the feet bilaterally Psych: Calm, cooperative and conversant Objective Lab Results CBC & Chem 7: 11/20/21 05:54 11/20/21 05:54 Microbiology Results Microbiology 11/14/21 13:23 Blood - Right Hand Blood Culture - Final NO GROWTH 5 DAYS 11/14/21 13:00 Blood - Right Antecubital Blood Culture - Final NO GROWTH 5 DAYS Meds Allergies and Active Meds Allergies codeine Allergy (Verified 05/18/21 09:55) Unknown Reaction lisinopril Allergy (Verified 05/18/21 09:55) Swelling of Lip/Tongue/Throat Active Meds: Active Medications Generic Name Dose Route Start Last Admin Trade Name Jae PRN Reason Stop Dose Admin Acarbose 100 mg 11/15/21 08:00 11/20/21 12:32 Acarbose 50 Mg Tablet PO 11/15/22 07:59 100 mg TID.WITH.MEALS JULIANN Administration Acetaminophen 650 mg 11/14/21 17:42 11/15/21 18:15 Acetaminophen 325 Mg Tablet PO 11/14/22 17:41 650 mg Q4H PRN Administration Pain Amitriptyline HCl 10 mg 11/14/21 22:00 11/19/21 21:45 Amitriptyline 10 Mg Tablet PO 11/14/22 21:59 10 mg HS JULIANN Administration Ammonium Lactate 1 applic 11/14/21 22:00 11/20/21 05:47 Ammonium Lactate 12% Lot 226 Gm Bottle TOPICAL 11/14/22 21:59 1 applic QSHIFT JULIANN Administration Ascorbic Acid 500 mg 11/15/21 09:00 11/20/21 12:33 Ascorbic Acid 500 Mg Tablet PO 11/15/22 08:59 500 mg DAILY JULIANN Administration Atorvastatin Calcium 10 mg 11/14/21 22:00 11/19/21 21:45 Atorvastatin 10 Mg Tablet PO 11/14/22 21:59 10 mg HS JULIANN Administration Clopidogrel Bisulfate 75 mg 11/15/21 09:00 11/20/21 12:32 Clopidogrel Bisulfate 75 Mg Tablet PO 11/15/22 08:59 75 mg DAILY JULIANN Administration Dextrose 0 gm 11/14/21 17:38 Dextrose 50% In Water 25 Gm/50 Ml Syringe IV-PUSH 11/14/22 17:37 PRN PRN Hypoglycemia Duloxetine HCl 60 mg 11/16/21 09:00 11/20/21 12:32 Duloxetine 60 Mg Capsule.Dr PO 11/16/22 08:59 60 mg DAILY JULIANN Administration Ertapenem 1 each 11/20/21 07:35 Ertapenem - Pharmacy Dosing MISCELLANE ONCE PRN ZZ.Pharmacy Consult Protocol Ferrous Sulfate 324 mg 11/16/21 09:00 11/19/21 08:50 Ferrous Sulfate 324 Mg Tablet. PO 11/16/22 08:59 324 mg MoWeFr@0900 JULIANN Administration Folic Acid 1 mg 11/15/21 09:00 11/20/21 12:33 Folic Acid 1 Mg Tablet PO 11/15/22 08:59 1 mg DAILY JULIANN Administration Furosemide 40 mg 11/15/21 16:00 11/20/21 09:30 Furosemide 40 Mg/4 Ml Vial IV-PUSH 11/15/22 15:59 40 mg BID@0800,1600 JULIANN Administration Gabapentin 600 mg 11/15/21 21:00 11/19/21 21:45 Gabapentin 600 Mg Tablet PO 11/15/22 20:59 600 mg QPM JULIANN Administration Glucose 0 gm 11/14/21 17:38 Dextrose 40% Gel 15 Gm Tube PO 11/14/22 17:37 PRN PRN Hypoglycemia Heparin Sodium (Porcine) 5,000 unit 11/14/21 21:00 11/20/21 12:33 Heparin 5,000 Unit/Ml Vial SUBCUT 11/14/22 20:59 5,000 unit Q12HR JULIANN Administration Hydralazine HCl 10 mg 11/14/21 21:50 11/15/21 15:59 Hydralazine 20 Mg/Ml Vial IV-PUSH 11/14/22 21:49 10 mg Q4H PRN Administration Hypertension Ertapenem 0.5 gm/ Sodium 100 mls @ 200 mls/hr 11/20/21 17:00 Chloride IV 11/20/22 16:59 Q24H JULIANN Vancomycin HCl 1.25 gm/ 275 mls @ 183.333 mls/hr 11/20/21 18:00 Dextrose IV 11/20/21 19:29 ONCE ONE Insulin Aspart 0 units 11/14/21 22:00 11/20/21 12:39 Insulin Aspart 300 Units/3 Ml Insuln.Pen SUBCUT 11/14/22 21:59 Not Given TID.WM.HS [facility] Protocol Insulin Detemir 42 units 11/15/21 09:00 11/20/21 12:36 Insulin Detemir 300 Units/3 Ml Insuln.Pen SUBCUT 11/15/22 08:59 42 units DAILY JULIANN Administration Losartan Potassium 50 mg 11/18/21 09:00 11/20/21 12:33 Losartan 50 Mg Tablet PO 11/18/22 08:59 50 mg DAILY JULIANN Administration Loteprednol Etabonate 1 drops 11/14/21 18:00 11/20/21 12:36 Loteprednol 0.5% Op Susp 100 Drops/5 Ml Bottle EYE-LEFT 11/14/22 17:59 1 drops QID JULIANN Administration Melatonin 5 mg 11/14/21 17:42 11/16/21 21:23 Melatonin 5 Mg Tablet PO 11/14/22 17:41 5 mg HS PRN Administration Insomnia Metoprolol Tartrate 5 mg 11/14/21 21:50 Metoprolol Tartrate 5 Mg/5 Ml Vial IV-PUSH 11/14/22 21:49 Q4H PRN Blood Pressure Nifedipine 30 mg 11/18/21 15:40 11/20/21 12:33 Nifedipine Er.24hr 30 Mg Tab.Er.24 PO 11/18/22 15:39 30 mg DAILY JULIANN Administration Saccharomyces Boulardii 250 mg 11/15/21 08:00 11/20/21 08:00 Saccharomyces Boulardii 250 Mg Capsule PO 11/15/22 07:59 Not Given BID.WITH.MEALS JULIANN Sodium Bicarbonate 650 mg 11/15/21 14:00 11/20/21 12:33 Sodium Bicarbonate 650 Mg Tablet PO 11/15/22 13:59 650 mg TID JULIANN Administration Sodium Chloride 0 ml 11/14/21 12:54 11/20/21 09:30 Sodium Chloride 0.9 % 10 Ml Syringe IV-PUSH 11/14/22 12:53 10 ml PRN PRN Administration Flush Sodium Chloride 0 ml 11/14/21 22:00 11/20/21 05:47 Sodium Chloride 0.9 % 10 Ml Syringe IV-PUSH 11/14/22 21:59 10 ml QSHIFT JULIANN Administration Sodium Hypochlorite 0 ml 11/14/21 21:00 11/20/21 12:37 Sodium Hypochlorite 0.25% 473 Ml Solution TOPICAL 11/14/22 20:59 Not Given BID JULIANN Tamsulosin HCl 0.4 mg 11/14/21 21:00 11/20/21 12:33 Tamsulosin 0.4 Mg Cap.Er.24h PO 08/10/23 20:59 0.4 mg BID JULIANN Administration Vancomycin HCl 1 each 11/14/21 17:38 Vancomycin - Pharmacy Dosing 1 Each Miscell IV PRN PRN ZZ.Pharmacy Consult Protocol A&P - Hospitalist Assessment/Plan (1) Sepsis: (2) Diabetic foot ulcer: (3) TOM (acute kidney injury): (4) CKD (chronic kidney disease) stage 3, GFR 30-59 ml/min: (5) Type 2 diabetes mellitus with diabetic chronic kidney disease: (6) Osteomyelitis of foot: (7) Acute hyperkalemia: (8) PVD (peripheral vascular disease): (9) Hydroureteronephrosis: (10) COVID-19: (11) Anemia in chronic kidney disease (CKD): Plan -Discussed case with both urology, patient and nursing staff. Patient would want to hold off on invasive intervention for now, given the mild increased riskwith his COVID-19 positivity. He is agreeable to follow-up as an outpatient forlikely cystoscopy -No need for therapeutics for COVID-19 infection, patient is asymptomatic ?WBC does continue to improve, did discuss with Dr. Pitt we will plan on 2-weekcourse of antibiotic therapy via PICC line -Antibiotic dosing per ID; appreciate infectious diseases recommendations -Monitor CBC closely; suspect anemia of chronic kidney disease, transfuse to maintain hemoglobin greater than 7 -Monitor renal function daily -Podiatry and vascular surgery on board, no surgical intervention warranted by patient at this time -Possible consideration of hyperbaric oxygen therapy -Continue current management DVT prophylaxis: SubQ heparin CODE STATUS: Full code Documented By: Landon Grullon MD 2 [id number] Signed By: <Electronically signed by Landon Grullon MD> 11/20/21 1601 [facility] Work Phone: Progress note Author [facility] November 20, 2021 6:31pm Note Date/Time November 20, 2021 6: 31pm [facility] [address] [place], [place] [id number] Nephrology Progress Note Signed Patient: Simon Lott MR#: [id number] : 1950 Acct:[id number] Age/Sex: 71 / M Adm Date: 2 Loc: 4P Room: 8J5496-6 Type: ADM IN Attending Dr: Landon Grullon MD Copies to: ~ Date of Service: 11/20/2021 Subjective Subjective Narrative: Mr. Lott is a 71-year male with medical history of CKD, diabetes mellitus, hypertension, anemia, secondary hyperparathyroidism, alcoholic liver disease, PAD, diabetic foot ulcer, CVA, hepatitis C and nephrolithiasis. [facility] due to the [facility]. In ER, he was found to hve hyperkalemia serum potassium 6.1 mg/L and metabolic acidosis with serum bicarbonate 17 mmol/L. Patient was also noted to have a leukocytosis and tachycardia. He had a Right foot x-ray which showed finding concerning for osteomyelitis of the fifth metatarsal bone. Patient was given IV fluid and was started on broad-spectrum antibiotics for diabetic foot infection and sepsis. Patient was given sodium bicarbonate, insulin with D50 and Lokelma in the emergency room for hyperkalemia. On review record it appears that patient has a longstanding CKD with baseline creatinine around 3.2?3.5 mg/dL. His renal function has been declining due to the progression of his CKD. He used to follow uo in our renal clin[facility] for CKD care but missed the last appointment. Nephrology is consulted for his CKD, fluid overload, hyperkalemia and metabolic acidosis management. Interval history: He is awake and denies any complaints. Blood pressure is better improved after addition of losartan. Creatinine has increased however stable around 3.4 mg/dL. He has normal potassium 3.5 mmol/L. He still on vancomycin and meropenem was switched to ertapenem by ID for skin and soft tissue infections. He was seen by the vascular surgery for infected right foot. Vascular surgery recommended nonurgent BKA or AKA due to his severe PAD. He was also seen by thepodiatry and option of hyperbaric oxygen was discussed as patient is refusing BKA. Urology input is appreciated. Patient is going to have cystoscopy with possiblestent as outpatient. Patient would like to hold off on any invasive intervention at this point. Exam Physical Exam Vital Signs: Temp Pulse Resp BP Pulse Ox O2 Del Method 37.0 C 82 18 148/88 H 96 Room Air 11/20/21 16:00 11/20/21 16:00 11/20/21 16:00 11/20/21 16:00 11/20/21 16:00 11/20/21 16:00 Narrative: Constitutional: AA male,, looks at his stated age resting in bed in no acute distress HEENT: Moist mucous membranes, neck supple, no JVD Cardiovascular: Distant heart sound, RRR, normal S1 and S2. No murmur or rub. Respiratory: Clear to auscultation bilaterally, no wheezes, rales or rhonchi GI: Soft, nontender with no palpable organs or masses. : Sanchez catheter in place Extremities: Both feet and dressing covering chronic wounds. Bilateral lower extremities indurated with stasis dermatitis changes bilaterally in the distal legs. Neuro: AAOx3, no focal deficits. Skin: Chronic wounds on the feet bilaterally Psych: Calm, cooperative and conversant Objective Intake and Output I&O: Intake & Output 11/17/21 11/18/21 11/19/21 11/20/21 23:59 23:59 23:59 23:59 Intake Total 1110 / 1110 1600 / 1600 1100 / 1100 250 / 250 Output Total 3400 / 3400 3200 / 3200 2425 / 2425 500 / 500 Balance -2290 / -2290 -1600 / -1600 -1325 / -1325 -250 / -250 Weight 110 kg 111.1 kg 108.4 kg Meds and Allergies Meds: Active Medications Acarbose (Acarbose 50 Mg Tablet) 100 mg PO TID.WITH.MEALS JULIANN Stop: 11/15/22 07:59 Last Admin: 11/20/21 17:30 Dose: 100 mg Acetaminophen (Acetaminophen 325 Mg Tablet) 650 mg PO Q4H PRN PRN Reason: Pain Stop: 11/14/22 17:41 Last Admin: 11/15/21 18:15 Dose: 650 mg Amitriptyline HCl (Amitriptyline 10 Mg Tablet) 10 mg PO HS JULIANN Stop: 11/14/22 21:59 Last Admin: 11/19/21 21:45 Dose: 10 mg Ammonium Lactate (Ammonium Lactate 12% Lot 226 Gm Bottle) 1 applic TOPICAL QSHIFT JULIANN Stop: 11/14/22 21:59 Last Admin: 11/20/21 18:18 Dose: 1 applic Ascorbic Acid (Ascorbic Acid 500 Mg Tablet) 500 mg PO DAILY JULIANN Stop: 11/15/22 08:59 Last Admin: 11/20/21 12:33 Dose: 500 mg Atorvastatin Calcium (Atorvastatin 10 Mg Tablet) 10 mg PO HS JULIANN Stop: 11/14/22 21:59 Last Admin: 11/19/21 21:45 Dose: 10 mg Clopidogrel Bisulfate (Clopidogrel Bisulfate 75 Mg Tablet) 75 mg PO DAILY JULIANN Stop: 11/15/22 08:59 Last Admin: 11/20/21 12:32 Dose: 75 mg Dextrose (Dextrose 50% In Water 25 Gm/50 Ml Syringe) 0 gm IV-PUSH PRN PRN PRN Reason: Hypoglycemia Stop: 11/14/22 17:37 Duloxetine HCl (Duloxetine 60 Mg Capsule.) 60 mg PO DAILY JULIANN Stop: 11/16/22 08:59 Last Admin: 11/20/21 12:32 Dose: 60 mg Ertapenem (Ertapenem - Pharmacy Dosing) 1 each MISCELLANE ONCE PRN; Protocol PRN Reason: ZPawan.Pharmacy Consult Ferrous Sulfate (Ferrous Sulfate 324 Mg Tablet.) 324 mg PO MoWeFr@0900 JULIANN Stop: 11/16/22 08:59 Last Admin: 11/19/21 08:50 Dose: 324 mg Folic Acid (Folic Acid 1 Mg Tablet) 1 mg PO DAILY JULIANN Stop: 11/15/22 08:59 Last Admin: 11/20/21 12:33 Dose: 1 mg Furosemide (Furosemide 40 Mg/4 Ml Vial) 40 mg IV-PUSH BID@0800,1600 JULIANN Stop: 11/15/22 15:59 Last Admin: 11/20/21 17:30 Dose: 40 mg Gabapentin (Gabapentin 600 Mg Tablet) 600 mg PO QPM JULIANN Stop: 11/15/22 20:59 Last Admin: 11/19/21 21:45 Dose: 600 mg Glucose (Dextrose 40% Gel 15 Gm Tube) 0 gm PO PRN PRN PRN Reason: Hypoglycemia Stop: 11/14/22 17:37 Heparin Sodium (Porcine) (Heparin 5,000 Unit/Ml Vial) 5,000 unit SUBCUT Q12HR JULIANN Stop: 11/14/22 20:59 Last Admin: 11/20/21 12:33 Dose: 5,000 unit Hydralazine HCl (Hydralazine 20 Mg/Ml Vial) 10 mg IV-PUSH Q4H PRN PRN Reason: Hypertension Stop: 11/14/22 21:49 Last Admin: 11/15/21 15:59 Dose: 10 mg Ertapenem 0.5 gm/ Sodium (Chloride) 100 mls @ 200 mls/hr IV Q24H JULIANN Stop: 11/20/22 16:59 Last Admin: 11/20/21 17:30 Dose: 200 mls/hr Vancomycin HCl 1.25 gm/ (Dextrose) 275 mls @ 183.333 mls/hr IV ONCE ONE Stop: 11/20/21 19:29 Insulin Aspart (Insulin Aspart 300 Units/3 Ml Insuln.Pen) 0 units SUBCUT TID.WM.HS JULIANN; Protocol Stop: 11/14/22 21:59 Last Admin: 11/20/21 17:31 Dose: Not Given Insulin Detemir (Insulin Detemir 300 Units/3 Ml Insuln.Pen) 42 units SUBCUT DAILY [facility] Stop: 11/15/22 08:59 Last Admin: 11/20/21 12:36 Dose: 42 units Losartan Potassium (Losartan 50 Mg Tablet) 50 mg PO DAILY [facility] Stop: 11/18/22 08:59 Last Admin: 11/20/21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 Confirmed 04/22/22] gabapentin 600 mg tablet 600 mg PO QPM #0 tabs 11/21/21 [Rx Confirmed 04/22/22] losartan 25 mg tablet 50 mg PO DAILY #30 tabs 11/21/21 [Rx Confirmed 04/22/22] nifedipine 30 mg tablet,extended release 24 hr 30 mg PO DAILY #0 tabs 11/21/21 [Rx Confirmed 04/22/22] polyethylene glycol 3350 17 gram oral powder packet (Miralax) 17 g PO DAILY #0 ea 11/21/21 [Rx Confirmed 04/22/22] sodium bicarbonate 650 mg tablet 650 mg PO TID #0 tabs 11/21/21 [Rx Confirmed 04/22/22] Objective - Resuscitation Status Resuscitation Status: Full Code - Height/Weight Height/Weight: Height 6 ft 2 in Weight 108.908 kg - Vital Signs Vital Signs: 04/22/22 09:59 Temperature 97.8 F Pulse Rate [Left Brachial] 88 Respiratory Rate 16 Blood Pressure [Left Arm] 145/80 H 02 Sat by Pulse Oximetry 98 Oxygen Delivery Method Room Air Physical Exam Narrative: ECOG PS: 1 General : patient is alert and oriented to person place and time, no acute distress. Neck: no JVD or thyromegaly. Lymph: no cervical, supraclavicular, axillary adenopathy. Heart: regular rate and rhythm no murmurs rubs or gallops. Abdomen: soft nontender nondistended, no hepatosplenomegaly. Lungs: clear to auscultation bilaterally. No wheezes, rales, rhonchi. Extremities: no clubbing cyanosis. Bilateral edema R > L. His RLE is wrapped, bandage for foot ulcer. - ECOG Performance Status ECOG Score: 1 Results - Labs Labs: Diagram of Most Recent CBC and CMP 12/05/21 12:29 12/05/21 12:28 Assessment and Plan (1) Anemia 1.) Multifactorial Anemia- CKD stage IV, history of iron deficiency -creat up to 4.3 in jan 2022. -Also component of chronic inflammation, July 2021 will plan to re-check his iron studies, B12 and folate as he has a history of these deficiencies and his hemoglobin has dropped a bit, most recent value of 7.7. B12 and folate found to be low, started monthly B12 injections and folic acid 1mg PO daily and he has responded nicely. He definitely has component of renal disease and lacks enough endogenous erythropoietin to maintain his hemoglobin. We will continue with Aranesp for hgb < 10 as he has responded well to this. He has been getting about every two weeks. Follow up in 3 months with visit. Continue current treatment; most recent hemoglobin was 9.8. 2.) Iron Deficiency Iron was low again in July 2021; s/p Venofer 300mg x 3 doses - recheck labs in 3 months 3.) CKD Stage IV - followed by nephrology 4.) Left hydronephrosis - urology following - they are currently recommending placement of left nephrostomy tube for ureteral stricture - Time with Patient Time Spent with Patient (Follow Up Visit): 25 minutes Coordination of Care & Counseling Time: Greater than 50% of time spent with patient was for coordination of care (as documented) and [id number] counseling of patient and/or family. Dictated By: Clara Chew APRN DD/ [id number] Signed By: <Electronically signed by TYSON Chew> 04/22/22 115[address] [facility] Work Phone: Progress note Author Kevin [facility] September 11, 2022 2:52pm Note Date/Time September 11, 2022 2:43p m [facility] [address] [place] [address] Hospitalist Progress Note Signed Patient: Simon Lott MR#: [id number] : 1950 Acct:[id number] Age/Sex: 72 / M Adm Date: 3 Loc: 4N Room: 4Y2164-1 Type: ADM IN Attending Dr: Kevin Steinberg MD Copies to: ~ Date of Service: 09/11/2022 Subjective Subjective Narrative: Patient seen and examined. Right foot dressing dry and intact. He denies any pain in the right foot. Denies any fever or chills. PICC line had been placed. He is agreeable to go home with home health and IV antibiotics. He is hemodynamically stable and is saturating well on room air Exam Physical Exam Vital Signs: Temp Pulse Resp BP Pulse Ox O2 Del Method 97.9 F 82 16 174/92 H 100 Room Air 09/11/22 11:48 09/11/22 11:48 09/11/22 11:48 09/11/22 11:48 09/11/22 11:48 09/11/22 13:48 Narrative: General: Awake, alert, oriented x3 not in acute distress HEENT: Normocephalic, atraumatic, PERRLA, normal mucosa Cardiovascular: Regular rate and rhythm , S1-S2 heard, no murmurs or gallops Lungs: No wheezing or rhonchi heard Gastrointestinal: Soft, nontender, bowel sounds heard Extremities: Right foot wound dressing dry and intact. Neurological: no sensory or motor deficit Skin: Dry and warm, no rashes or lesions Psych: Normal mood and affect Objective Lab Results 09/11/22 05:09 09/11/22 05:09 Microbiology Results Microbiology 09/10/22 12:07 Blood Blood Culture - Preliminary No Growth 1 Day 09/10/22 11:50 Blood - Left Forearm Blood Culture - Preliminary No Growth 1 Day 09/10/22 12:30 Heel, Right - Ulcer Superficial Wound Culture - Preliminary Proteus mirabilis Providencia stuartii Enterococcus faecalis Pseudomonas aeruginosa Meds Allergies and Active Meds Allergies codeine Allergy (Verified 09/10/22 10:29) Unknown Reaction lisinopril Allergy (Verified 09/10/22 10:29) Swelling of Lip/Tongue/Throat Active Meds: Active Medications Generic Name Dose Route Start Last Admin Trade Name Freq PRN Reason Stop Dose Admin Acarbose 100 mg 09/10/22 22:00 09/11/22 14:04 Acarbose 50 Mg Tablet PO 09/10/23 21:59 100 mg TID JULIANN Administration Acetaminophen 650 mg 09/10/22 17:01 Acetaminophen 325 Mg Tablet PO 09/10/23 17:00 Q6HR PRN Pain Scale 1 - 3 or fever Atorvastatin Calcium 10 mg 09/10/22 22:00 09/10/22 21:36 Atorvastatin 10 Mg Tablet PO 09/10/23 21:59 10 mg HS JULIANN Administration Duloxetine HCl 60 mg 09/11/22 15:00 Duloxetine 60 Mg Capsule. PO 09/11/23 14:59 DAILY JULIANN Folic Acid 1 mg 09/11/22 09:00 09/11/22 08:06 Folic Acid 1 Mg Tablet PO 09/11/23 08:59 1 mg DAILY JULIANN Administration Furosemide 40 mg 09/11/22 08:00 09/11/22 08:06 Furosemide 40 Mg Tablet PO 09/11/23 07:59 40 mg BID@0800,1600 JULIANN Administration Gabapentin 600 mg 09/10/22 21:00 09/10/22 21:36 Gabapentin 600 Mg Tablet PO 09/10/23 20:59 600 mg QPM JULIANN Administration Heparin Sodium (Porcine) 5,000 unit 09/10/22 22:00 09/11/22 14:04 Heparin 5,000 Unit/Ml Vial SUBCUT 09/10/23 21:59 5,000 unit Q8HR JULIANN Administration Meropenem 0.5 gm in 100 mls @ 200 mls/hr 09/11/22 05:00 09/11/22 05:30 Merrem IV 200 mls/hr Q12H JULIANN Administration Insulin Aspart 0 units 09/10/22 17:00 09/11/22 11:51 Insulin Aspart 300 Units/3 Ml Insuln.Pen SUBCUT 09/10/23 16:59 Not Given TID.WM.HS [facility] Protocol Insulin Glargine 40 units 09/11/22 09:00 09/11/22 08:07 Insulin Glargine 300 Units/3 Ml Insuln.Pen SUBCUT 09/11/23 08:59 40 units DAILY JULIANN Administration Labetalol HCl 10 mg 09/10/22 16:43 Labetalol 100 Mg/20 Ml Vial IV-PUSH 09/10/23 16:42 Q4H PRN for sbp > 170 Nifedipine 60 mg 09/11/22 14:05 Nifedipine Er.24hr 60 Mg Tab.Er.24 PO 09/11/23 14:04 DAILY JULIANN Oxycodone HCl 5 mg 09/10/22 17:01 Oxycodone Ir 5 Mg Tablet PO Q6HR PRN Pain Scale 4 - 7 Sodium Bicarbonate 1,300 mg 09/11/22 22:00 Sodium Bicarbonate 650 Mg Tablet PO 09/11/23 21:59 TID JULIANN Sodium Chloride 0 ml 09/10/22 13:34 09/10/22 15:39 Sodium Chloride 0.9 % 10 Ml Syringe IV-PUSH 09/10/23 13:33 10 ml PRN PRN Administration Flush Sodium Chloride 0 ml 09/11/22 09:46 Sodium Chloride 0.9 % 10 Ml Syringe IV-PUSH 09/11/23 09:45 PRN PRN Flush Vancomycin HCl 1 each 09/10/22 16:49 Vancomycin - Pharmacy Dosing 1 Each Miscell IV ONCE PRN ZZ.Pharmacy Consult Protocol A&P - Hospitalist Assessment/Plan (1) Infected wound: (2) Chronic kidney disease, stage V: (3) Diabetic foot ulcer: (4) Osteomyelitis of foot: (5) PAD (peripheral artery disease): Plan Patient denies any pain in his right foot. He is hemodynamically stable and is afebrile Labs showed mild leukocytosis with kidney functions at his baseline Cultures pending Infectious disease on board, recommended PICC line for long-term IV antibiotics and has been placed by vascular. Vascular has evaluated the patient, does not think patient has vascular insufficiency and recommended wound care with no plan for amputation Nephrology on board, recommends dialysis as patient has advanced CKD and patientis agreeable. Vascular consulted for vein mapping and possible AV fistula placement DVT prophylaxis CODE STATUS full code Patient is agreeable to go home with home health and is agreeable with IV antibiotics Documented By: Kevin Steinberg MD 09/11/22 1440 Signed By: <Electronically signed by Kevin Steinberg MD> 09/11/22 1452 [facility] Work Phone: Progress note Author Riya Sampson [facility] October 23, 2022 1:21pm Note Date/Time October 23, 2022 1:11 pm [facility] [address] [place] [address] Hospitalist Progress Note Signed Patient: Simon Lott MR#: [id number] : 1950 Acct:[id number] Age/Sex: 72 / M Adm Date: 3 Loc: 3T Room: [address] [place] [address] Type: ADM IN Attending Dr: Riya Sampson DO Copies to: ~ Date of Service: 10/23/2022 Subjective Subjective Narrative: Patient was seen and examined at the bedside earlier this morning. The patient pulls his blankets up over his face and does not speak but is seemingly awake Physical Examination: GENERAL APPEARANCE: The patient pulls his blankets up over his face and does notspeak but is seemingly awake HEENT: NCAT, MMM NECK: Neck soft w/o masses, no JVD CARDIAC: Normal S1 and S2. No S3, S4 or murmurs. LUNGS: Clear to auscultation anteriorly ABDOMEN: Positive bowel sounds. Soft, nontender. No guarding or signs of an acute abdomen EXTREMITIES: No clubbing, cyanosis. Large lymphedematous lower extremities bilaterally, appropriate dressing in place to right lower extremity NEUROLOGICAL: No focal deficits PSYCHIATRIC: Appropriate mood and affect Assessment and plan: 1. Stenotrophomonas maltophilia bacteremia Appreciate infectious disease recommendations. PICC line will be removed. Can continue Avycaz. Repeat blood cultures from yesterday are still pending. 99.2 low-grade fever yesterday, afebrile since that time. ESR and CRP elevation persist. 2. Leukocytosis 3. Eosinophilia Monitor. This may benefit from oncology consultation as an outpatient 4. Chronic kidney disease stage V Serum creatinine is at baseline. He is notably edematous in the lower extremities however I suspect much of this is chronic. We will continue home Lasix 40 mg p.o. twice daily. Continue sodium bicarbonate 1300 mg 3 times daily. Trend daily labs and consult nephrology if any worsening. 5. Anemia Multifactorial likely anemia of chronic kidney disease, anemia of chronic inflammation. MCV is normocytic at 95.5. Monitor for any clinical bleeding. Transfuse if the patient becomes further symptomatic with this. Currently stable. 6. Insulin-dependent diabetes mellitus Continue home basal bolus insulin regimen and acarbose 100 mg 3 times daily. Carb controlled diet. 7. Hypertension Continue home nifedipine 90 mg daily 8. Diabetic neuropathy Continue home 600 mg gabapentin nightly 9. Dyslipidemia Continue home atorvastatin 10 mg nightly 10. BPH Continue home Flomax 0.4 mg twice daily Disposition: Patient is admitted for multiple acute medical issues as above and will require ongoing monitoring of blood cultures, continuous IV antibiotics anddaily labs. He is thus admitted as an inpatient for a stay that will surpass greater than 2 midnights. Exam Physical Exam Vital Signs: Temp Pulse Resp BP Pulse Ox O2 Del Method 97.9 F 99 H 18 182/85 H 100 Room Air 10/23/22 11:38 10/23/22 11:38 10/23/22 11:38 10/23/22 11:38 10/23/22 11:38 10/23/22 11:38 Objective Lab Results 10/23/22 06:28 10/23/22 08:06 Meds Allergies and Active Meds Allergies codeine Allergy (Verified 10/21/22 12:39) Unknown Reaction lisinopril Allergy (Verified 10/21/22 12:39) Swelling of Lip/Tongue/Throat Active Meds: Active Medications Generic Name Dose Route Start Last Admin Trade Name Freq PRN Reason Stop Dose Admin Acarbose 100 mg 10/22/22 22:00 10/23/22 09:53 Acarbose 50 Mg Tablet PO 10/22/23 21:59 100 mg TID JULIANN Administration Ammonium Lactate 1 applic 10/23/22 09:00 10/23/22 09:57 Ammonium Lactate 12% Lot 226 Gm Bottle TOPICAL 10/23/23 08:59 1 applic DAILY JULIANN Administration Atorvastatin Calcium 10 mg 10/22/22 22:00 10/22/22 23:05 Atorvastatin 10 Mg Tablet PO 10/22/23 21:59 10 mg HS JULIANN Administration Clopidogrel Bisulfate 75 mg 10/23/22 09:00 10/23/22 09:54 Clopidogrel Bisulfate 75 Mg Tablet PO 10/23/23 08:59 75 mg DAILY JULIANN Administration Duloxetine HCl 60 mg 10/22/22 22:00 10/22/22 23:05 Duloxetine 60 Mg Capsule.Dr PO 10/22/23 21:59 60 mg QHS JULIANN Administration Folic Acid 1 mg 10/23/22 09:00 10/23/22 09:53 Folic Acid 1 Mg Tablet PO 10/23/23 08:59 1 mg DAILY JULIANN Administration Furosemide 40 mg 10/23/22 08:00 10/23/22 09:53 Furosemide 40 Mg Tablet PO 10/23/23 07:59 40 mg BID@0800,1600 JULIANN Administration Gabapentin 600 mg 10/22/22 21:00 10/22/22 23:05 Gabapentin 600 Mg Tablet PO 10/22/23 20:59 600 mg QPM JULIANN Administration Heparin Sodium (Porcine) 5,000 unit 10/22/22 22:00 10/23/22 07:01 Heparin 5,000 Unit/Ml Vial SUBCUT 10/22/23 21:59 5,000 unit Q8HR JULIANN Administration Aztreonam 2 gm in 100 mls @ 200 mls/hr 10/22/22 22:30 10/23/22 07:02 Azactam IV 200 mls/hr Q8H JULIANN Administration Ceftazidime/Avibactam 0.94 gm/ 100 mls @ 50 mls/hr 10/22/22 22:30 10/23/22 12:35 Sodium Chloride IV 10/22/23 22:29 50 mls/hr Q12H JULIANN Administration Protocol Insulin Aspart 0 units 10/23/22 07:30 10/23/22 11:37 Insulin Aspart 300 Units/3 Ml Insuln.Pen SUBCUT 10/23/23 07:29 Not Given ACHS [facility] Protocol Insulin Glargine 42 units 10/23/22 09:00 10/23/22 09:54 Insulin Glargine 300 Units/3 Ml Insuln.Pen SUBCUT 10/23/23 08:59 42 units DAILY JULIANN Administration Melatonin 5 mg 10/22/22 20:40 Melatonin 5 Mg Tablet PO 10/22/23 20:39 HS PRN Insomnia Nifedipine 90 mg 10/23/22 09:00 10/23/22 09:54 Nifedipine Er.24hr 90 Mg Tab.Er.24 PO 10/23/23 08:59 90 mg DAILY JULIANN Administration Polyethylene Glycol 17 gm 10/23/22 09:00 10/23/22 09:57 Polyethylene Glycol 3350 17 Gm Powd.Pack PO 10/23/23 08:59 17 gm DAILY JULIANN Administration Potassium Chloride 20 meq 10/23/22 09:00 10/23/22 09:54 Potassium Chloride Er 20 Meq Tab.Er.Prt PO 10/23/23 08:59 20 meq DAILY JULIANN Administration Sodium Bicarbonate 1,300 mg 10/22/22 22:00 10/23/22 09:54 Sodium Bicarbonate 650 Mg Tablet PO 10/22/23 21:59 1,300 mg TID JULIANN Administration Sodium Chloride 0 ml 10/22/22 15:32 10/22/22 22:24 Sodium Chloride 0.9 % 10 Ml Syringe IV-PUSH 10/22/23 15:31 10 ml PRN PRN Administration Flush Tamsulosin HCl 0.4 mg 10/22/22 21:00 10/23/22 09:53 Tamsulosin 0.4 Mg Cap.Er.24h PO 10/22/23 20:59 0.4 mg BID JULIANN Administration Documented By: Riya Sampson DO 10/23/22 13 08 Signed By: <Electronically signed by Riya Sampson DO> 10/23/22 132[address] [facility] Work Phone: Progress note Author Riya Pitt [facility] October 24, 2022 10:02am Note Date/Time October 24, 2022 10:0 2am [facility] [address] [place] [address] Infect. Disease Progress Note Signed Patient: Simon Lott MR#: [id number] : 1950 Acct:[id number] Age/Sex: 72 / M Adm Date: 3 Loc: Room: [address] [place] [address] Type: ADM IN Attending Dr: Riya Sampson DO Copies to: ~ Date of Service: 10/24/2022 Subjective Interval history: Patient is doing good today and wants to go home. No problems overnight. PICC line was pulled. Exam Physical Exam Vital Signs: Temp Pulse Resp BP Pulse Ox O2 Del Method 97.6 F 82 18 163/77 H 97 Room Air 10/24/22 08:00 10/24/22 08:00 10/24/22 08:00 10/24/22 08:00 10/24/22 08:00 10/24/22 08:00 Const General: cooperative, comfortable and no acute distress Orientation: oriented x3 HEENT Head: normal to inspection Ears: hearing grossly normal bilaterally Mouth: oral mucosae normal Eyes General: appearance normal, both eyes and all related structures Neck Neck: normal visual inspection Chest Chest palpation & inspection: normal inspection of the chest Resp Effort & Inspection: normal respiratory effort Cardio Palpation: normal PMI Rate: regular rate GI Inspection: normal to inspection Palpation: soft and nontender Skin Other: Right foot wrapped with clean dry dressing today was not taken down. Wounds visualized yesterday. Neuro General: patient oriented x3 Objective Labs CBC/BMP: CBC, BMP 10/24/22 10/24/22 06:21 06:21 Corrected WBC 10.3 Uncorrected WBC Count 10.3 RBC 2.45 L Hgb 7.9 L Hct 24.4 L Plt Count 244 Sodium 142 Potassium 4.2 Chloride 111 H Carbon Dioxide 23.6 Anion Gap 11.6 BUN 30 H Creatinine 2.78 H Calcium 7.4 L Labs: 10/24/22 06:21 BUN 30 H Creatinine 2.78 H Microbiology Microbiology: Microbiology - Results from entire visit 10/22/22 16:38 Blood - Left Wrist Blood Culture - Preliminary No Growth 1 Day 10/22/22 16:14 Blood - Right Hand Blood Culture - Preliminary No Growth 1 Day Allergies and Medications Allergies and Active Meds Allergies codeine Allergy (Verified 10/21/22 12:39) Unknown Reaction lisinopril Allergy (Verified 10/21/22 12:39) Swelling of Lip/Tongue/Throat Active Medications Acarbose (Acarbose 50 Mg Tablet) 100 mg PO TID JULIANN Stop: 10/22/23 21:59 Last Admin: 10/24/22 08:55 Dose: 100 mg Ammonium Lactate (Ammonium Lactate 12% Lot 226 Gm Bottle) 1 applic TOPICAL DAILY JULIANN Stop: 10/23/23 08:59 Last Admin: 10/24/22 08:57 Dose: 1 applic Atorvastatin Calcium (Atorvastatin 10 Mg Tablet) 10 mg PO HS JULIANN Stop: 10/22/23 21:59 Last Admin: 10/23/22 22:07 Dose: 10 mg Clopidogrel Bisulfate (Clopidogrel Bisulfate 75 Mg Tablet) 75 mg PO DAILY JULIANN Stop: 10/23/23 08:59 Last Admin: 10/24/22 08:55 Dose: 75 mg Duloxetine HCl (Duloxetine 60 Mg Capsule.Dr) 60 mg PO QHS JULIANN Stop: 10/22/23 21:59 Last Admin: 10/23/22 22:07 Dose: 60 mg Folic Acid (Folic Acid 1 Mg Tablet) 1 mg PO DAILY JULIANN Stop: 10/23/23 08:59 Last Admin: 10/24/22 08:55 Dose: 1 mg Furosemide (Furosemide 40 Mg Tablet) 40 mg PO BID@0800,1600 JULIANN Stop: 10/23/23 07:59 Last Admin: 10/24/22 08:56 Dose: 40 mg Gabapentin (Gabapentin 600 Mg Tablet) 600 mg PO QPM JULIANN Stop: 10/22/23 20:59 Last Admin: 10/23/22 22:08 Dose: 600 mg Heparin Sodium (Porcine) (Heparin 5,000 Unit/Ml Vial) 5,000 unit SUBCUT Q8HR JULIANN Stop: 10/22/23 21:59 Last Admin: 10/24/22 05:31 Dose: 5,000 unit Hydralazine HCl (Hydralazine 20 Mg/Ml Vial) 20 mg IV-PUSH Q2H PRN PRN Reason: SBP > 165 Stop: 10/23/23 16:35 Aztreonam (Azactam) 2 gm in 100 mls @ 200 mls/hr IV Q8H [facility] Last Infusion: 10/24/22 06:48 Dose: Infused Ceftazidime/Avibactam 0.94 gm/ (Sodium Chloride) 100 mls @ 50 mls/hr IV Q12H [facility]; Protocol Stop: 10/22/23 22:29 Last Infusion: 10/24/22 03:20 Dose: Infused Insulin Aspart (Insulin Aspart 300 Units/3 Ml Insuln.Pen) 0 units SUBCUT ACHS [facility]; Protocol Stop: 10/23/23 07:29 Last Admin: 10/24/22 06:47 Dose: Not Given Insulin Glargine (Insulin Glargine 300 Units/3 Ml Insuln.Pen) 42 units SUBCUT DAILY JULIANN Stop: 10/23/23 08:59 Last Admin: 10/24/22 08:57 Dose: 42 units Melatonin (Melatonin 5 Mg Tablet) 5 mg PO HS PRN PRN Reason: Insomnia Stop: 10/22/23 20:39 Nifedipine (Nifedipine Er.24hr 90 Mg Tab.Er.24) 90 mg PO DAILY JULIANN Stop: 10/23/23 08:59 Last Admin: 10/24/22 08:56 Dose: 90 mg Polyethylene Glycol (Polyethylene Glycol 3350 17 Gm Powd.Pack) 17 gm PO DAILY JULIANN Stop: 10/23/23 08:59 Last Admin: 10/24/22 08:56 Dose: 17 gm Potassium Chloride (Potassium Chloride Er 20 Meq Tab.Er.Prt) 20 meq PO DAILY JULIANN Stop: 10/23/23 08:59 Last Admin: 10/24/22 08:56 Dose: 20 meq Sodium Bicarbonate (Sodium Bicarbonate 650 Mg Tablet) 1,300 mg PO TID JULIANN Stop: 10/22/23 21:59 Last Admin: 10/24/22 08:56 Dose: 1,300 mg Sodium Chloride (Sodium Chloride 0.9 % 10 Ml Syringe) 0 ml IV-PUSH PRN PRN PRN Reason: Flush Stop: 10/22/23 15:31 Last Admin: 10/23/22 22:09 Dose: 10 ml Tamsulosin HCl (Tamsulosin 0.4 Mg Cap.Er.24h) 0.4 mg PO BID JULIANN Stop: 10/22/23 20:59 Last Admin: 10/24/22 08:55 Dose: 0.4 mg A&P - Infectious Disease Assessment/Plan (1) Infection due to Stenotrophomonas maltophilia: Code(s): A49.8 - Other bacterial infections of unspecified site Status: Acute (2) Bacteremia: Code(s): R78.81 - Bacteremia Status: Acute (3) Left against medical advice: Code(s): Z53.29 - Procedure and treatment not carried out because of patient's decision for other reasons Status: Acute Plan Patient's initial culture from September 10 was targeted with IV meropenem as an outpatient. He has completed more than 6 weeks of this and ended up rehospitalized as stated in the HPI I did yesterday. His blood cultures repeated from the remain negative at 1 day. Blood cultures from and then previous had grown the stenotrophomonas as well as the Esteban bacterium. From my standpoint though the foot again is growing different bacteria this was asuperficial culture and is likely representation of colonization as he just was on IV meropenem for 6 weeks. Ultimately follows with Dr. Gayle in [place]. From his recent bacteremia with stenotrophomonas and now the PICC line which is likely the source has been pulled. Favor oral Levaquin potentially for discharge for continued therapy as this would negate another PICC line for being placed given his noncompliance as well as hygienic challenges Documented By: Riya Pitt MD 10/24/22 [id number] Signed By: <Electronically signed by MD Riya Pitt> 10/24/22 1002 [facility] Work Phone: Chief Complaint and Reason for Visit Chief Complaint Diabetic ulceration e11.621 fever Abnormal Labs kidney stones urinary retention Anemia.. Reason for Visit Acute hyperkalemia TOM (acute kidney injury) Anemia Anemia in chronic kidney disease (CKD) Cellulitis and abscess of right leg CKD (chronic kidney disease) stage 3, GFR 30-59 ml/min CKD (chronic kidney disease) stage 4, GFR 15-29 ml/min COVID-19 High anion gap metabolic acidosis Hydronephrosis, left Hydroureteronephrosis Hyperkalemia [id number] Lab test positive for detection of COVID-19 virus Leukocytosis Osteomyelitis of foot PAD (peripheral artery disease) PVD (peripheral vascular disease) Sepsis Type 2 diabetes mellitus with diabetic chronic kidney disease Type 2 diabetes mellitus with foot ulcer Diabetic foot ulcer Anemia Chief Complaint fever Abnormal Labs kidney stones urinary retention Anemia.. Hydronephrosis, Ureteral Stone Reason for Visit Acute hyperkalemia TOM (acute kidney injury) Anemia Anemia in chronic kidney disease (CKD) Cellulitis and abscess of right leg CKD (chronic kidney disease) stage 3, GFR 30-59 ml/min CKD (chronic kidney disease) stage 4, GFR 15-29 ml/min COVID-19 High anion gap metabolic acidosis Hydronephrosis, left Hydroureteronephrosis Hyperkalemia [id number] Lab test positive for detection of COVID-19 virus Leukocytosis Osteomyelitis of foot PAD (peripheral artery disease) PVD (peripheral vascular disease) Sepsis Type 2 diabetes mellitus with diabetic chronic kidney disease Type 2 diabetes mellitus with foot ulcer Diabetic foot ulcer Anemia Chief Complaint Hydronephrosis, Uret eral Stone Anemia.. POC Reason for Visit Anemia Chief Complaint Hydronephrosis, Uret eral Stone POC Anemia.. Reason for Visit Anemia Chief Complaint Hydronephrosis, Uret eral Stone POC sent for dx 12/5 Anemia.. hydronephrosis Reason for Visit Anemia Chief Complaint Hydronephrosis, Uret eral Stone Hydronephrosis, Ureteral Stone POC sent for dx 12/5 Anemia.. hydronephrosis Reason for Visit Anemia Chief Complaint Hydronephrosis, Uret eral Stone Hydronephrosis, Ureteral Stone POC sent for dx 12/5 hydronephrosis D64.9 Anemia.. kidney stones, hydronephrosis Reason for Visit Anemia Chief Complaint POC sent for dx 12/5 hydronephrosis D64.9 kidney stones, hydronephrosis Anemia.. Reason for Visit Anemia Chief Complaint kidney stones, hydro nephrosis Anemia.. Reason for Visit Anemia Chief Complaint D64.9 Anemia.. Reason for Visit Anemia Chief Complaint D64.9 D64.9 Anemia.. kidney issues Reason for Visit Anemia Chief Complaint D64.9 D64.9 kidney issues Anemia.. Reason for Visit Anemia Chief Complaint D64.9 D64.9 kidney issues Anemia.. L97.511 L98.492 R foot pain leg infection, called back rt foot open wound Reason for Visit Anemia Anemia Chronic kidney disease, stage V CKD (chronic kidney disease) stage 4, GFR 15-29 ml/min Diabetic foot ulcer Hydroureteronephrosis [id number] Leukocytosis Metabolic acidosis Osteomyelitis PVD (peripheral vascular disease) Diabetic foot ulcer Infected wound Diabetes Chief Complaint kidney issues Anemia.. L97.511 L98.492 R foot pain leg infection, called back rt foot open wound Reason for Visit Anemia Anemia Chronic kidney disease, stage V CKD (chronic kidney disease) stage 4, GFR 15-29 ml/min Diabetic foot ulcer Hydroureteronephrosis [id number] Leukocytosis Metabolic acidosis Osteomyelitis PVD (peripheral vascular disease) Anemia Chronic kidney disease, stage V Diabetic foot ulcer Hydroureteronephrosis Hyperkalemia [id number] Infected wound Metabolic acidosis Osteomyelitis of foot PAD (peripheral artery disease) Diabetes Chief Complaint kidney issues L97.511 L98.492 R foot pain leg infection, called back rt foot open wound L86.172 L03.116 Anemia.. Reason for Visit Anemia Chronic kidney disease, stage V CKD (chronic kidney disease) stage 4, GFR 15-29 ml/min Diabetic foot ulcer Hydroureteronephrosis [id number] Leukocytosis Metabolic acidosis Osteomyelitis PVD (peripheral vascular disease) Anemia Chronic kidney disease, stage V Diabetic foot ulcer Hydroureteronephrosis Hyperkalemia [id number] Infected wound Metabolic acidosis Osteomyelitis of foot PAD (peripheral artery disease) Diabetes Anemia Chief Complaint kidney issues L97.511 L98.492 R foot pain leg infection, called back rt foot open wound L86.172 L03.116 Anemia.. both legs swollen Reason for Visit Anemia Chronic kidney disease, stage V CKD (chronic kidney disease) stage 4, GFR 15-29 ml/min Diabetic foot ulcer Hydroureteronephrosis [id number] Leukocytosis Metabolic acidosis Osteomyelitis PVD (peripheral vascular disease) Anemia Chronic kidney disease, stage V Diabetic foot ulcer Hydroureteronephrosis Hyperkalemia [id number] Infected wound Metabolic acidosis Osteomyelitis of foot PAD (peripheral artery disease) Diabetes Anemia Chief Complaint L97.511 L98.492 R foot pain leg infection, called back rt foot open wound L86.172 L03.116 N18.9 Anemia.. both legs swollen sent by dr Reason for Visit Anemia Chronic kidney disease, stage V CKD (chronic kidney disease) stage 4, GFR 15-29 ml/min Diabetic foot ulcer Hydroureteronephrosis [id number] Leukocytosis Metabolic acidosis Osteomyelitis PVD (peripheral vascular disease) Anemia Chronic kidney disease, stage V Diabetic foot ulcer Hydroureteronephrosis Hyperkalemia [id number] Infected wound Metabolic acidosis Osteomyelitis of foot PAD (peripheral artery disease) Diabetes Anemia Chief Complaint L97.511 L98.492 R foot pain leg infection, called back rt foot open wound L86.172 L03.116 N18.9 Anemia.. m86.172 L03.116 both legs swollen sent by dr Reason for Visit Anemia Chronic kidney disease, stage V CKD (chronic kidney disease) stage 4, GFR 15-29 ml/min Diabetic foot ulcer Hydroureteronephrosis [id number] Leukocytosis Metabolic acidosis Osteomyelitis PVD (peripheral vascular disease) Anemia Chronic kidney disease, stage V Diabetic foot ulcer Hydroureteronephrosis Hyperkalemia [id number] Infected wound Metabolic acidosis Osteomyelitis of foot PAD (peripheral artery disease) Diabetes Anemia Chief Complaint L97.511 L98.492 R foot pain leg infection, called back rt foot open wound L86.172 L03.116 N18.9 E11.9 R60.0 m86.172 L03.116 L03.116 M86.172 both legs swollen sent by Anemia.. call back Reason for Visit Anemia Chronic kidney disease, stage V CKD (chronic kidney disease) stage 4, GFR 15-29 ml/min Diabetic foot ulcer Hydroureteronephrosis [id number] Leukocytosis Metabolic acidosis Osteomyelitis PVD (peripheral vascular disease) Anemia Chronic kidney disease, stage V Diabetic foot ulcer Hydroureteronephrosis Hyperkalemia [id number] Infected wound Metabolic acidosis Osteomyelitis of foot PAD (peripheral artery disease) Diabetes Anemia Chief Complaint L97.511 L98.492 R foot pain leg infection, called back rt foot open wound L86.172 L03.116 N18.9 E11.9 R60.0 E11.42 I69.30 I25.0 m86.172 L03.116 L03.116 M86.172 both legs swollen sent by dr Beatty.118 M86.172 Anemia.. call back called to come back in Reason for Visit Anemia Chronic kidney disease, stage V CKD (chronic kidney disease) stage 4, GFR 15-29 ml/min Diabetic foot ulcer Hydroureteronephrosis [id number] Leukocytosis Metabolic acidosis Osteomyelitis PVD (peripheral vascular disease) Anemia Chronic kidney disease, stage V Diabetic foot ulcer Hydroureteronephrosis Hyperkalemia [id number] Infected wound Metabolic acidosis Osteomyelitis of foot PAD (peripheral artery disease) Diabetes Anemia Anemia Bacteremia Diabetic foot ulcer Chief Complaint L97 L98.492 R foot pain leg infection, called back rt foot open wound L86.172 L03.116 N18.9 E11.9 R60.0 E11.42 I69.30 I25.0 R06.02 m86.172 L03.116 L03.116 M86.172 both legs swollen sent by dr Beatty.118 M86.172 Anemia.. call back called to come back in Reason for Visit Anemia Chronic kidney disease, stage V CKD (chronic kidney disease) stage 4, GFR 15-29 ml/min Diabetic foot ulcer Hydroureteronephrosis [id number] Leukocytosis Metabolic acidosis Osteomyelitis PVD (peripheral vascular disease) Anemia Chronic kidney disease, stage V Diabetic foot ulcer Hydroureteronephrosis Hyperkalemia [id number] Infected wound Metabolic acidosis Osteomyelitis of foot PAD (peripheral artery disease) Diabetes Anemia Anemia Bacteremia Diabetic foot ulcer Infection due to Stenotrophomonas maltophilia Left against medical advice Chief Complaint L97.511 L98.492 R foot pain leg infection, called back rt foot open wound L86.172 L03.116 N18.9 E11.9 R60.0 E11.42 I69.30 I25.0 R06.02 m86.172 L03.116 L03.116 M86.172 both legs swollen sent by dr Beatty.118 M86.172 call back called to come back in Anemia.. Reason for Visit Anemia Chronic kidney disease, stage V CKD (chronic kidney disease) stage 4, GFR 15-29 ml/min Diabetic foot ulcer Hydroureteronephrosis [id number] Leukocytosis Metabolic acidosis Osteomyelitis PVD (peripheral vascular disease) Anemia Chronic kidney disease, stage V Diabetic foot ulcer Hydroureteronephrosis Hyperkalemia [id number] Infected wound Metabolic acidosis Osteomyelitis of foot PAD (peripheral artery disease) Diabetes Anemia Bacteremia Diabetic foot ulcer Infection due to Stenotrophomonas maltophilia Anemia Chief Complaint L97.511 L98.492 R foot pain leg infection, called back rt foot open wound L86.172 L03.116 N18.9 E11.9 R60.0 E11.42 I69.30 I25.0 R06.02 m86.172 L03.116 L03.116 M86.172 both legs swollen sent by dr Baetty.118 M86.172 call back called to come back in D64.9 Anemia.. Reason for Visit Anemia Chronic kidney disease, stage V CKD (chronic kidney disease) stage 4, GFR 15-29 ml/min Diabetic foot ulcer Hydroureteronephrosis [id number] Leukocytosis Metabolic acidosis Osteomyelitis PVD (peripheral vascular disease) Anemia Chronic kidney disease, stage V Diabetic foot ulcer Hydroureteronephrosis Hyperkalemia [id number] Infected wound Metabolic acidosis Osteomyelitis of foot PAD (peripheral artery disease) Diabetes Anemia Bacteremia Diabetic foot ulcer Infection due to Stenotrophomonas maltophilia Anemia Chief Complaint rt foot open wound L86.172 L03.116 N18.9 E11.9 R60.0 E11.42 I69.30 I25.0 R06.02 m86.172 L03.116 L03.116 M86.172 both legs swollen sent by dr Beatty.118 M86.172 call back called to come back in D64.9 Anemia.. D64.9 Reason for Visit Anemia Chronic kidney disease, stage V Diabetic foot ulcer Hydroureteronephrosis Hyperkalemia [id number] Infected wound Metabolic acidosis Osteomyelitis of foot PAD (peripheral artery disease) Diabetes Anemia Bacteremia Diabetic foot ulcer Infection due to Stenotrophomonas maltophilia Anemia Chief Complaint rt foot open wound L86.172 L03.116 N18.9 E11.9 R60.0 E11.42 I69.30 I25.0 R06.02 m86.172 L03.116 L03.116 M86.172 both legs swollen sent by dr Beatty.118 M86.172 call back called to come back in D64.9 Anemia.. D64.9 D64.9 Reason for Visit Anemia Chronic kidney disease, stage V Diabetic foot ulcer Hydroureteronephrosis Hyperkalemia [id number] Infected wound Metabolic acidosis Osteomyelitis of foot PAD (peripheral artery disease) Diabetes Anemia Bacteremia Diabetic foot ulcer Infection due to Stenotrophomonas maltophilia Anemia Chief Complaint L86.172 L03.116 N18.9 E11.9 R60.0 E11.42 I69.30 I25.0 R06.02 m86.172 L03.116 L03.116 M86.172 both legs swollen sent by dr Beatty.118 M86.172 call back called to come back in D64.9 Anemia.. D64.9 D64.9 Reason for Visit Anemia Bacteremia Diabetic foot ulcer Infection due to Stenotrophomonas maltophilia Anemia Chief Complaint L86.172 L03.116 N18.9 E11.9 R60.0 E11.42 I69.30 I25.0 R06.02 m86.172 L03.116 L03.116 M86.172 both legs swollen sent by dr Beatty.118 M86.172 call back called to come back in D64.9 Anemia.. D64.9 D64.9 d64.9 Reason for Visit Anemia Bacteremia Diabetic foot ulcer Infection due to Stenotrophomonas maltophilia Anemia Chief Complaint m86.172 L03.116 L03.116 M86.172 both legs swollen sent by dr Beatty.118 M86.172 call back called to come back in D64.9 D64.9 D64.9 d64.9 E11.9 E78.2 E55.9 Anemia.. r74.8 Reason for Visit Anemia Bacteremia Diabetic foot ulcer Infection due to Stenotrophomonas maltophilia Anemia Chief Complaint call back called to come back in D64.9 D64.9 D64.9 d64.9 E11.9 E78.2 E55.9 Anemia.. r74.8 Reason for Visit Anemia Bacteremia Diabetic foot ulcer Infection due to Stenotrophomonas maltophilia Anemia Chief Complaint call back called to come back in D64.9 D64.9 D64.9 d64.9 E11.9 E78.2 E55.9 r74.8 Anemia.. Reason for Visit Anemia Bacteremia Diabetic foot ulcer Infection due to Stenotrophomonas maltophilia Anemia Chief Complaint D64.9 D64.9 D64.9 d64.9 E11.9 E78.2 E55.9 r74.8 N18.9 D63.1 Anemia.. Reason for Visit Anemia Chief Complaint D64.9 D64.9 d64.9 E11.9 E78.2 E55.9 r74.8 N18.9 D63.1 Anemia.. D64.9 N18.5 Reason for Visit Anemia Chief Complaint d64.9 E11.9 E78.2 E55.9 r74.8 N18.9 D63.1 D64.9 N18.5 N18.4 n184 Anemia.. Reason for Visit Anemia Chief Complaint E11.9 E78.2 E55.9 r74.8 N18.9 D63.1 D64.9 N18.5 N18.4 n184 Anemia.. Tobacco use Vitamin D deficiency Reason for Visit Anemia Chief Complaint E11.9 E78.2 E55.9 r74.8 N18.9 D63.1 D64.9 N18.5 N18.4 n184 Anemia.. e55.9 Reason for Visit Anemia Chief Complaint r74.8 N18.9 D63.1 D64.9 N18.5 N18.4 n184 e55.9 N18.9 D63.1 Anemia.. ESRD Reason for Visit Anemia Chief Complaint N18.9 D63.1 D64.9 N18.5 N18.4 n184 e55.9 N18.9 D63.1 ESRD Anemia.. Reason for Visit Anemia Chief Complaint D64.9 N18.5 N18.4 n184 e55.9 N18.9 D63.1 ESRD N18.4 Anemia.. ESRD Reason for Visit Anemia Chief Complaint D64.9 N18.5 N18.4 n184 e55.9 N18.9 D63.1 ESRD N18.4 Anemia.. ESRD Reason for Visit Anemia Chronic renal insufficiency, stage IV (severe) Family History Relationship Condition Age at Onset Recorded Date/T rd Not Specified Diabetes mellitus Unknown father Diabetes mellitus Unknown sister Diabetes mellitus Unknown brother Diabetes mellitus Unknown Unknown Family Member Name Dates Details Family history of diabetes m ellitus: Mother, Brother(V18.0, Z83.3) Status:Active Family history of dementia: Father(V17.2, Z81.8) Status:Active Family history of glaucoma: Father(V19.11, Z83.511) Status:Active Family history of cardiac pa cemaker: Brother(V17.49, Z82.49) Status:Active Family history of cardiac di sorder: Brother(V17.49, Z82.49) Status:Active Unknown Family Member Name Dates Details Family history of diabetes m ellitus: Mother, Brother(V18.0, Z83.3) Status:Active Family history of dementia: Father(V17.2, Z81.8) Status:Active Family history of glaucoma: Father(V19.11, Z83.511) Status:Active Family history of cardiac pa cemaker: Brother(V17.49, Z82.49) Status:Active Family history of cardiac di sorder: Brother(V17.49, Z82.49) Status:Active Unknown Family Member Name Dates Details Family history of diabetes m ellitus: Mother, Brother(V18.0, Z83.3) Status:Active Family history of dementia: Father(V17.2, Z81.8) Status:Active Family history of glaucoma: Father(V19.11, Z83.511) Status:Active Family history of cardiac pa cemaker: Brother(V17.49, Z82.49) Status:Active Family history of cardiac di sorder: Brother(V17.49, Z82.49) Status:Active Unknown Family Member Name Dates Details Family history of cardiac di sorder: Brother(V17.49, Z82.49) Status:Active Family history of cardiac pa cemaker: Brother(V17.49, Z82.49) Status:Active Family history of glaucoma: Father(V19.11, Z83.511) Status:Active Family history of dementia: Father(V17.2, Z81.8) Status:Active Family history of diabetes m ellitus: Mother, Brother(V18.0, Z83.3) Status:Active Unknown Family Member Name Dates Details Family history of cardiac di sorder: Brother(V17.49, Z82.49) Status:Active Family history of cardiac pa cemaker: Brother(V17.49, Z82.49) Status:Active Family history of glaucoma: Father(V19.11, Z83.511) Status:Active Family history of dementia: Father(V17.2, Z81.8) Status:Active Family history of diabetes m ellitus: Mother, Brother(V18.0, Z83.3) Status:Active Unknown Family Member Name Dates Details Family history of diabetes m ellitus: Mother, Brother(V18.0, Z83.3) Status:Active Family history of dementia: Father(V17.2, Z81.8) Status:Active Family history of glaucoma: Father(V19.11, Z83.511) Status:Active Family history of cardiac pa cemaker: Brother(V17.49, Z82.49) Status:Active Family history of cardiac di sorder: Brother(V17.49, Z82.49) Status:Active Relationship Condition Age at Onset Recorded Date/T rd Not Specified Diabetes mellitus Unknown Hypertension Unknown Disorder of kidney Unknown father Diabetes mellitus Unknown sister Diabetes mellitus Unknown brother Diabetes mellitus Unknown Advance Directives Advance Directive Response Recorded Date/ Time Advance Directives No December 9:45am Advance Directive Response Recorded Date/ Time Advance Directives No December 8:45am Reason for Referral Reason AVF creation Diagnosis 1 CKD (chronic kidney disease) stage 4, GFR 15-29 ml/min (N18.4) Diagnosis 2 AV fistula (I77.0) Referral Organization [facility] Nephrology Referring Provider First Name Essricki Referring Provider Last Name Claudia Referring Provider Specialty Nephrology Referred Organization [facility] Vascular Surge ry Referred Provider Fawad Rocha Referred Address [address] [place] [address],[place] [address],[place], [place],[address] Referred Provider Specialty Vascular Marcie gregory Referral Priority Routine General Notes Mary Jo Bean 02/13/2023 03:01:07 PM > VEIN MAPPING ORDER FAXED TO [facility] VASCULAR / [facility] SCHED Reason Left hydronephrosis Diagnosis 1 CKD (chronic kidney disease) stage 4, GFR 15-29 ml/min (N18.4) Referral Organization [facility] Referring Provider First Name Johan Referring Provider Last Name Claudia Referring Provider Specialty Nephrology Referred Organization [facility] Referred Provider ANABELAKIKO Referred Address [address],[place], [place],[address] Referred Provider Specialty Urology Referral Priority Routine General Notes Faviola Khan 022 02:32:20 PM >Received today. Referral has been fax and Dr. 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 Follow Up 07/17/2022 Reason Onset Date Comments Returning Patient's Call 07/24/2022 Reason Comments tube removal Care Teams (unrecognized sec tion and content) Team Status: Active Member Role Status Dates NON STAFF Primary Care Provider Active Team Status: Active Member Role Status Dates Mervat Santiago NP-C Primary Care Provider, Referring Provider Active Pito Miguel MD Active Jose M Landry II, DO Attending Provider Active Team Status: Inactive Member Role Status Dates Services [facility] Primary Care Provider Ac shantive Jose M Landry II, DO Attending Provider Active Team Status: Inactive Member Role Status Dates Johan Taylor MD Attending Provider Active NON STAFF Primary Care Provider Active Team Status: Inactive Member Role Status Dates Jose M Landry II, DO Attending Provider Active Team Status: Inactive Member Role Status Dates Mervat Santiago BOAT OFFICER-C Attending Provider Active Services [facility] Primary Care Provider Ac tive Team Status: Inactive Member Role Status Dates Formerly [facility] Primary Care Provider Ac tive Mervat Santiago BOAT OFFICER-C Attending Provider Active Team Status: Inactive Member Role Status Dates Maddie Dixon APRN Attending Provider Acti ve Team Status: Inactive Member Role Status Dates Johan Taylor MD Attending Provider Active Team Status: Active Member Role Status Dates Maye Murray , Primary Care Provider Active Team Status: Inactive Member Role Status Dates Maye Murray , DO Primary Care Provider Active Kiko Corbett MD Attending Provider Active Team Status: Inactive Member Role Status Dates Maye Murray DO Primary Care Provider, Attending P rovider Active Team Status: Inactive Member Role Status Dates Maye Murray , DO Primary Care Provider Active Ramakrishna Sandoval , DO Emergency Provider Active Team Status: Inactive Member Role Status Dates Ivan Springer , DO Emergency Provider Active Maye Murray , DO Primary Care Provider Active Chris Mccarthy , DO Admit Provider Active Johan Taylor MD Other Provider Active Olga Lidia Martin MD Other Provider Active Jose Escobar MD Other Provider Active Manoj Frank MD Other Provider Active Christofer Persaud MD Other Provider Active Yisel Andrade MD Other Provider Active Delores Turpin , CANOPY INSPECTOR Other Provider Active Jessica Lua LPN Other Provider Active Fawad Rocha MD Other Provider Active Jailene Castorena NP-C Other Provider Active Raimundo Gandhi MD Other Provider Active Master Mauricio MD Other Provider Active Bhakti Ochoa DPM Other Provider Active Landon Grullon MD Attending Provider Active Kiko Corbett MD Other Provider Active Team Status: Inactive Member Role Status Dates Formerly [facility] Primary Care Provider Ac tive Bhakti Ochoa , DPM Attending Provider Active Team Status: Inactive Member Role Status Dates Maye Murray , DO Primary Care Provider Active Renata Wyatt MD Attending Provider Active Kasey Heller , DO Referring Provider Active Circuit Designer Relationship Specialty Start Date End Date Bunting, Maye Ray, DO [address] [place] [address] PCP - General [facility] Medicine 05/06/22 Team Status: Inactive Member Role Status Dates Maye Murray , DO Primary Care Provider Active Sonal Márquez Jr, MD Emergency Provider Active Circuit Designer Relationship Specialty Start Date End Date Bunting, Maye Ray, DO [address] [place] [address] PCP - [facility] 05/06/22 Circuit Designer Relationship Specialty Start Date End Date Bunting, Maye Ray, DO [address] [place] [address] PCP - General [facility] Medicine 05/06/22 Team Status: Active Member Role Status Dates Mervat Santiago , BOAT OFFICER-C Primary Care Provider Active Team Status: Active Member Role Status Dates Mervat Santiago , BOAT OFFICER-C Primary Care Provider Active Serafin Pearson DO Emergency Provider Active Kevin Steinberg MD Admit Provider, Attending Provider A jonathan Taylor MD Other Provider Active Fawad Rocha MD Other Provider Active Team Status: Inactive Member Role Status Amparo Gilesjennifer Murray DO Primary Care Provider Active Mervat Santiago , BOAT OFFICER-C Attending Provider Active Team Status: Inactive Member Role Status Dates Mervat Santiago , BOAT OFFICER-C Primary Care Provider Active Srinivas Aguilar DO Emergency Provider Active Team Status: Inactive Member Role Status Dates Mervat Santiago , BOAT OFFICER-C Primary Care Provider Active Iris Dwyer APRN Emergency Provider Active Landon Grullon MD Admit Provider Active Riya Pitt MD Other Provider Active Yisel Andrade MD Other Provider Active Bhakti Ochoa DPM Other Provider Active Julian Jones MD Attending Provider Active Sj Barron MD Other Provider Active Circuit Designer Relationship Specialty Start Date End Date Maye Murray, DO [address] [place] [address] PCP - General Family Medicine 05/06/22 Team Status: Inactive Member Role Status Dates Mervat Santiago , BOAT OFFICER-C Primary Care Provider Active Serafin Pearson DO Emergency Provider Active Kevin Steinberg MD Admit Provider, Attending Provider A ctjordin Pitt MD Other Provider Active Johan Taylor MD Other Provider Active Vincenzo Gomez DPM Other Provider Active Fawad Rocha MD Other Provider Active Team Status: Inactive Member Role Status Dates Mervat Santiago , BOAT OFFICER-C Primary Care Provider Active Riya Pitt MD Attending Provider Active Team Status: Inactive Member Role Status Dates Mervat Santiago , BOAT OFFICER-C Primary Care Provider, Attending Provider Active Team Status: Inactive Member Role Status Dates Mervat Santiago , BOAT OFFICER-C Primary Care Provider Active Pedro Drake MD Emergency Provider Active Team Status: Inactive Member Role Status Dates Mervat Santiago , BOAT OFFICER-C Primary Care Provider Active TRINIDAD Longo-C Emergency Provider Active Team Status: Active Member Role Status Dates Mervat Santiago , BOAT OFFICER-C Primary Care Provider Active Singh Kessler PA-C Emergency Provider Active Riya Sampson DO Admit Provider, Attending Provider Active Team Status: Inactive Member Role Status Dates Mervat Santiago , BOAT OFFICER-C Primary Care Provider Active Singh Kessler PA-C Emergency Provider Active Riya Sampson DO Admit Provider, Attending Provider Active Riya Pitt MD Other Provider Active Team Status: Inactive Member Role Status Dates Mervat Santiago , BOAT OFFICER-C Primary Care Provider Active Jose M Landry II, DO Attending Provider Active Team Status: Inactive Member Role Status Dates Mervat Santiago , BOAT OFFICER-C Attending Provider Active Team Status: Active Member Role Status Dates Former[facility] Primary Care Provider Ac tive Team Status: Inactive Member Role Status Dates Fawad Rocha MD Attending Provider Active Mervat Ellen Santiago , BOAT OFFICER-C Primary Care Provider Active Team Status: Inactive Member Role Status Dates Mervat Santiago , BOAT OFFICER-C Primary Care Provider Active Johan Taylor MD Attending Provider Active (unrecognized sect ion and content) No Status Records FoundNo Status Records FoundNo Status Records FoundNo Status Records FoundNo Status Records FoundNo Status Records FoundNo Status Records FoundNo Status Records Found INFORMATION SOURCE (unrecogn ized section and content) DATE CREATED AUTHOR 02/22/2022 [employer] DATE CREATED AUTHOR AUTHOR'S ORGANIZ ATION 08/18/2022 [facility] DATE CREATED AUTHOR AUTHOR'S ORGANIZ ATION 08/31/2022 [facility] DATE CREATED AUTHOR AUTHOR'S ORGANIZ ATION 09/17/2022 [facility] DATE CREATED AUTHOR AUTHOR'S ORGANIZ ATION 09/23/2022 [facility] DATE CREATED AUTHOR AUTHOR'S ORGANIZ ATION 10/19/2022 [facility] DATE CREATED AUTHOR AUTHOR'S ORGANIZ ATION 12/27/2022 [facility] DATE CREATED AUTHOR AUTHOR'S ORGANIZ ATION 02/14/2023 [facility] Source Comments (unrecognize d section and content) In the event this informatio n is protected by the Federal Confidentiality of Alcohol and Drug Abuse Patient Records regulations: The Federal rules restrict any use of the information to criminally investigate or prosecute any alcohol or drug abuse patient.[facility] the event this information is protected by the Federal Confidentiality of Alcohol and Drug Abuse Patient Records regulations: The Federal rules restrict any use of the information to criminally investigate or prosecute any alcohol or drug abuse patient.[facility] the event this information is protected by the Federal Confidentiality of Alcohol and Drug Abuse Patient Records regulations: The Federal rules restrict any use of the information to criminally investigate or prosecute any alcohol or drug abuse patient.[facility] the event this information is protected by the Federal Confidentiality of Alcohol and Drug Abuse Patient Records regulations: The Federal rules restrict any use of the information to criminally investigate or prosecute any alcohol or drug abuse patient.[facility] the event this information is protected by the Federal Confidentiality of Alcohol and Drug Abuse Patient Records regulations: The Federal rules restrict any use of the information to criminally investigate or prosecute any alcohol or drug abuse patient.[facility] the event this information is protected by the Federal Confidentiality of Alcohol and Drug Abuse Patient Records regulations: The Federal rules restrict any use of the information to criminally investigate or prosecute any alcohol or drug abuse patient.[facility] the event this information is protected by the Federal Confidentiality of Alcohol and Drug Abuse Patient Records regulations: The Federal rules restrict any use of the information to criminally investigate or prosecute any alcohol or drug abuse patient.[facility] FOR RECORDS PERTAINING TO PATIENTS WHO ARE OR HAVE BEEN ENROLLED IN A CHEMICAL DEPENDENCY/SUBSTANCEABUSE PROGRAM, SOME INFORMATION MAY BE OMITTED. This clinical summary was aggregated from multiple sources. Caution should be exercised in using it in the provision of clinical care. This summary normalizes information from multiple sources, and as a consequence, information in this document may materially change the coding, format and clinical context of patient data. In addition, data may be omitted in some cases. CLINICAL DECISIONS SHOULD BE BASED ON THE PRIMARY CLINICAL RECORDS. [facility] [employer] [facility]. provides no warranty or guarantee of the accuracy or completeness of information in this document.
== END 2023-05-01 10:01 | disposition home or self-care (01) ==
LOC: WC 05-02 10:30
PROVIDERS: PCP Podiatrist Foot & Ankle Surgery; Visit Provider Physician Assistant
DX: Z53.9 Procedure and treatment not carried out, unspecified reason (principal)
CPT/HCPCS: G0463

== ENCOUNTER 2023-05-09 10:31 | Outpatient (OUT) | payer MEDICARE, MEDICAID, SELFPAY | END 2023-05-09 10:32 | disposition home or self-care (01) | LOC: WC 10:31 | PROVIDERS: PCP Podiatrist Foot & Ankle Surgery; Visit Provider Podiatrist Foot & Ankle Surgery | DX: E11.621 Type 2 diabetes mellitus with foot ulcer (principal); L97.411 Non-pressure chronic ulcer of right heel and midfoot limited to breakdown of skin; L89.613 Pressure ulcer of right heel, stage 3 | CPT/HCPCS: 15275; Q4101 ==

== ENCOUNTER 2023-05-16 11:51 | Outpatient (OUT) | payer MEDICARE, MEDICAID, SELFPAY | END 2023-05-16 11:52 | disposition home or self-care (01) | LOC: WC 11:51 | PROVIDERS: PCP Podiatrist Foot & Ankle Surgery; Visit Provider Podiatrist Foot & Ankle Surgery | DX: E11.621 Type 2 diabetes mellitus with foot ulcer (principal); L97.411 Non-pressure chronic ulcer of right heel and midfoot limited to breakdown of skin; L89.613 Pressure ulcer of right heel, stage 3 | CPT/HCPCS: 11042 ==

== ENCOUNTER 2023-05-30 10:46 | Outpatient (OUT) | payer MEDICARE, MEDICAID, SELFPAY | END 2023-05-30 10:47 | disposition home or self-care (01) | LOC: WC 10:47 | PROVIDERS: PCP Podiatrist Foot & Ankle Surgery; Visit Provider Podiatrist Foot & Ankle Surgery | DX: L89.613 Pressure ulcer of right heel, stage 3 (principal); E11.621 Type 2 diabetes mellitus with foot ulcer; L97.411 Non-pressure chronic ulcer of right heel and midfoot limited to breakdown of skin | CPT/HCPCS: 15275; Q4101 ==

== ENCOUNTER 2023-06-06 10:53 | Outpatient (OUT) | payer MEDICARE, MEDICAID, SELFPAY | END 2023-06-06 10:54 | disposition home or self-care (01) | LOC: WC 10:53 | PROVIDERS: PCP Podiatrist Foot & Ankle Surgery; Visit Provider Podiatrist Foot & Ankle Surgery | DX: E11.621 Type 2 diabetes mellitus with foot ulcer (principal); L97.411 Non-pressure chronic ulcer of right heel and midfoot limited to breakdown of skin; L89.613 Pressure ulcer of right heel, stage 3 | CPT/HCPCS: 15275; Q4101 ==

== ENCOUNTER 2023-06-16 13:22 | Outpatient (OUT) | payer MEDICARE, MEDICAID, SELFPAY | END 2023-06-16 13:23 | disposition home or self-care (01) | LOC: WC 13:22 | PROVIDERS: PCP Podiatrist Foot & Ankle Surgery; Visit Provider Physician Assistant | DX: L89.613 Pressure ulcer of right heel, stage 3 (principal); E11.621 Type 2 diabetes mellitus with foot ulcer; L97.411 Non-pressure chronic ulcer of right heel and midfoot limited to breakdown of skin | CPT/HCPCS: 15275; Q4101 ==

== ENCOUNTER 2023-06-23 14:22 | Outpatient (OUT) | payer MEDICARE, MEDICAID, SELFPAY | END 2023-06-23 14:23 | disposition home or self-care (01) | LOC: WC 14:22 | PROVIDERS: PCP Podiatrist Foot & Ankle Surgery; Visit Provider Physician Assistant | DX: L89.613 Pressure ulcer of right heel, stage 3 (principal); E11.621 Type 2 diabetes mellitus with foot ulcer; L97.411 Non-pressure chronic ulcer of right heel and midfoot limited to breakdown of skin | CPT/HCPCS: 15275; Q4101 ==

== ENCOUNTER 2023-06-30 15:47 | Outpatient (OUT) | payer MEDICARE, MEDICAID, SELFPAY | END 2023-06-30 15:48 | disposition home or self-care (01) | LOC: WC 15:47 | PROVIDERS: PCP Podiatrist Foot & Ankle Surgery; Visit Provider Physician Assistant | DX: L89.613 Pressure ulcer of right heel, stage 3 (principal); E11.621 Type 2 diabetes mellitus with foot ulcer; L97.411 Non-pressure chronic ulcer of right heel and midfoot limited to breakdown of skin | CPT/HCPCS: 15275; Q4101 ==

== ENCOUNTER 2023-07-08 09:25 | Outpatient (OUT) | payer MEDICARE, MEDICAID, SELFPAY | END 2023-07-08 09:26 | disposition home or self-care (01) | LOC: WC 09:25 | PROVIDERS: PCP Podiatrist Foot & Ankle Surgery; Visit Provider Podiatrist Foot & Ankle Surgery | DX: E11.621 Type 2 diabetes mellitus with foot ulcer (principal); L97.411 Non-pressure chronic ulcer of right heel and midfoot limited to breakdown of skin; L89.613 Pressure ulcer of right heel, stage 3; R60.0 Localized edema; I89.0 Lymphedema, not elsewhere classified | CPT/HCPCS: 11042 ==

== ENCOUNTER 2023-07-11 09:03 | Outpatient (OUT) | payer MEDICARE, MEDICAID, SELFPAY ==
--- NOTE | 2023-07-11 09:30 | CA_ITS ---
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 Right: - significant pressure gradient between the calf and DP cuff - abnormal GILDA - normal TBI Left: - no significant pressure gradient between cuffs - abnormal GILDA - abnormal TBI Impression: - significant right outflow (tibioperoneal) arterial disease with severe hemodynamic impairment of the right lower extremity at rest(left GILDA 0.36) with no PT pulse detected. - normal right TBI, which contradicts the results of the GILDA, clinical correlation advised - normal arterial evaluation of the left lower extrmeity without hemodynamic impairment of the left lower extremity at rest. (left GILDA 1.26) - no PT or TBI detected in the left lower extremity, which may indicate severe small vessel disease, cliical correlation advised Electronically Signed On 07-13-2023 7:51:50 EDT by PRAVEEN JEAN
== END 2023-07-11 09:04 | disposition home or self-care (01) ==
LOC: CARD 09:05
PROVIDERS: Visit Provider Physician Assistant
DX: R09.89 Other specified symptoms and signs involving the circulatory and respiratory systems (principal)
CPT/HCPCS: 93923

== ENCOUNTER 2023-07-21 15:31 | Outpatient (OUT) | payer MEDICARE, MEDICAID, SELFPAY | END 2023-07-21 15:32 | disposition home or self-care (01) | LOC: WC 15:31 | PROVIDERS: Visit Provider Physician Assistant | DX: E11.621 Type 2 diabetes mellitus with foot ulcer (principal); L97.411 Non-pressure chronic ulcer of right heel and midfoot limited to breakdown of skin; L89.613 Pressure ulcer of right heel, stage 3 | CPT/HCPCS: 11043 ==

== ENCOUNTER 2023-08-12 15:29 | Outpatient (OUT) | payer MEDICARE, MEDICAID, SELFPAY | END 2023-08-12 15:30 | disposition home or self-care (01) | LOC: WC 15:29 | PROVIDERS: Visit Provider Podiatrist Foot & Ankle Surgery | DX: E11.621 Type 2 diabetes mellitus with foot ulcer (principal); L97.411 Non-pressure chronic ulcer of right heel and midfoot limited to breakdown of skin; L89.613 Pressure ulcer of right heel, stage 3 | CPT/HCPCS: 11042 ==

== ENCOUNTER 2023-08-26 15:30 | Outpatient (OUT) | payer MEDICARE, MEDICAID, SELFPAY | END 2023-08-26 15:31 | disposition home or self-care (01) | LOC: WC 15:30 | PROVIDERS: Visit Provider Podiatrist Foot & Ankle Surgery | DX: E11.621 Type 2 diabetes mellitus with foot ulcer (principal); L97.411 Non-pressure chronic ulcer of right heel and midfoot limited to breakdown of skin; L89.613 Pressure ulcer of right heel, stage 3 | CPT/HCPCS: 11042 ==

== ENCOUNTER 2023-09-23 13:27 | Outpatient (OUT) | payer MEDICARE, MEDICAID, SELFPAY | END 2023-09-23 13:28 | disposition home or self-care (01) | LOC: WC 13:27 | PROVIDERS: Visit Provider Podiatrist Foot & Ankle Surgery | DX: L89.613 Pressure ulcer of right heel, stage 3 (principal) | CPT/HCPCS: 11042 ==

== ENCOUNTER 2023-10-28 15:53 | Outpatient (OUT) | payer MEDICARE, MEDICAID, SELFPAY | END 2023-10-28 15:54 | disposition home or self-care (01) | LOC: WC 15:53 | PROVIDERS: Visit Provider Podiatrist Foot & Ankle Surgery | DX: L89.613 Pressure ulcer of right heel, stage 3 (principal) | CPT/HCPCS: 11042 ==

== ENCOUNTER 2023-11-25 11:30 | Outpatient (OUT) | payer MEDICARE, MEDICAID, SELFPAY | END 2023-11-25 11:31 | disposition home or self-care (01) | LOC: WC 11:31 | PROVIDERS: Visit Provider Physician Assistant | DX: E11.621 Type 2 diabetes mellitus with foot ulcer (principal); L97.411 Non-pressure chronic ulcer of right heel and midfoot limited to breakdown of skin; L89.613 Pressure ulcer of right heel, stage 3 | CPT/HCPCS: 11043; 11046 ==

== ENCOUNTER 2023-12-16 14:57 | Outpatient (OUT) | payer MEDICARE, MEDICAID, SELFPAY | END 2023-12-16 14:58 | disposition home or self-care (01) | LOC: WC 14:57 | PROVIDERS: Visit Provider Podiatrist Foot & Ankle Surgery | DX: E11.621 Type 2 diabetes mellitus with foot ulcer (principal); L97.411 Non-pressure chronic ulcer of right heel and midfoot limited to breakdown of skin; L89.613 Pressure ulcer of right heel, stage 3 | CPT/HCPCS: 11043; 11046 ==

== ENCOUNTER 2024-01-08 13:59 | Outpatient (OUT) | payer MEDICARE, MEDICAID, SELFPAY ==
--- NOTE | 2024-01-08 14:05 | ECG_ITS ---
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
--- NOTE | 2024-01-08 14:58 | XR_ITS ---
[address] [address] Patient Name: SIMON LOVE MRN: [id number] date: 1950 Sex: M Assigned Patient [facility]: [facility] Current Patient Location: [facility] Accession/Order Number: [id number] Exam Date: 01/08/2024 14:50 Report Date: 01/08/2024 16:08 At the request of: LIAM GAYLE Procedure: XR chest 2V EXAM: XR chest 2V HISTORY: Preop exam COMPARISON: None. TECHNIQUE: Upright PA and lateral chest x-ray FINDINGS: The heart is not enlarged and the vasculature is not distended. No acute infiltrate, effusion or pneumothorax is identified. The lateral view is limited secondary to arm positioning. The osseous structures are grossly intact. XR/XR chest 2V IMPRESSION: No acute infiltrate or evidence of cardiac decompensation. The lateral view is limited. Electronically authenticated by: LIAM KESSLER Date: 01/08/2024 16:08
[2024-01-08 15:19] LABS: Anion Gap 15.2; BUN Creatinine Ratio 5.1; Calcium 9.8 mg/dL (8.5-10.1); Carbon Dioxide 27.1 mmol/L (21.0-32.0); Chloride 93 mmol/L (98-107); Estimated GFR (African America 11 (>=60 mL/min/1.73m^2); Estimated GFR (Non-African Ame 9 (>=60 mL/min/1.73m^2); Glucose 191 mg/dL (74-106); Potassium 4.3 mmol/L (3.5-5.1); Sodium 131 mmol/L (136-145)
[2024-01-08 15:54] LABS: INR 1.01; Partial Thromboplastin Time 28.9 sec (22.3-36.2); Prothrombin Time 10.7 sec (9.0-11.6)
== END 2024-01-08 14:00 | disposition home or self-care (01) ==
LOC: PST 14:00
PROVIDERS: Visit Provider Podiatrist Foot & Ankle Surgery
DX: Z01.810 Encounter for preprocedural cardiovascular examination (principal); Z01.812 Encounter for preprocedural laboratory examination; E11.621 Type 2 diabetes mellitus with foot ulcer; L97.519 Non-pressure chronic ulcer of other part of right foot with unspecified severity
CPT/HCPCS: 71046; 80048; 85610; 85730; 93005

== ENCOUNTER 2024-01-22 06:10 | Day surgery (SDC) | payer MEDICARE, MEDICAID, SELFPAY ==
[2024-01-08 14:45] VITALS: BP 107/62; PULSE 77; TEMP 36.4; O2SAT 98; BMI 27.3
[2024-01-22] VITALS (11 sets, daily range): BP systolic 94–147; BP diastolic 43–84; PULSE 82–94; TEMP 36.1–36.6; O2SAT 92–98; BMI 27.2
--- OUTSIDE RECORDS SUMMARY | 2024-01-22 06:27 | XMS_ITS | CCD ---
Author Organization [facility] Inform ion Partnership [facility] Care Team Providers Care Pathology Collector Name Role Phone Johan Taylor Unavailable Olga Lidia Martin Unavailable Fawad Rocha Unavailable Yisel Andrade Unavailable [facility] Primary Care Prov ider ELBA Ochoa Attending Provider [phone] DO Ivan Springer Emergency Provider [phone] DO Maye Murray Primary Care Provider DO Chris Mccarthy Admit Provider [phone] MD Johan Taylor Other Provider MD Olga Lidia Martin Other Provider MD Jose Escobar Other Provider [phone] MD Manoj Frank Other Provider MD Hung [facility] Other Provider MD Yisel Andrade Other Provider DEEDEE Turpin Delores Other Provider UnavailDEEDEE Rene Other Provider Unavailable MD Fawad Rocha Other Provider ELÍAS Castorena Other Provider [phone] MD Raimundo Gandhi Other Provider [phone] MD Master Mauricio Other Provider [phone] ELBA Ochoa Other Provider MD Landon Grullon Attending Provider MD Kiko Corbett Other Provider DO Ramakrishna Sandoval Emergency Provider MD Kiko Corbett Attending Provider Spasic[facility] Mervat E Primary Care Provider Spasic, [facility] Referring Provider DO Jose M Landry II Attending Provider Riya Pitt Unavailable Master Mauricio Unavailable MD Jose Escobar Other Provider Unavailable Spasic, [facility] E Primary Care Provider Spasic, [facility]erv[facility] E Referring Provider DO Jose M Landry II Attending Provider Maye Murray Unavailable Unavailable Unavailable DO Maye Murray Primary Care Provider MD Kiko Corbett Attending Provider [phone] Spasic, [facility] Mervat E Primary Care Provider Spasic, [facility] Referring Provider DO Jose M Landry II Attending Provider MD Renata Wyatt Attending Provider DO Kasey Heller Referring Provider [phone] DO Maye Murray Attending Provider Spasic, [facility] E Primary Care Provider [phone] Spasic, [facility]erv[facility] E Referring Provider DO Jose M Landry II Attending Provider MD Renata Wyatt Attending Provider Spasic, [facility] Merv[facility] E Primary Care Provider Spasic, [facility]erv[facility] E Referring Provider DO Jose M Landry II Attending Provider Unavailable Primary Care Provider DO aMye Adkins Primary Care Provider MD Kiko Corbett Attending Provider Spasic, [facility] E Primary Care Provider Spasic, [facility] E Referring Provider DO Jose M Landry II Attending Provider MAYE MURRAY Primary Care Physician Kleberting Maye GHOSH Primary Care Provider DO Maye Murray Primary Care Provider MD Kiko Corbett Attending Provider Spasic, [facility] Merv[facility] E Primary Care Provider [phone] Spasic, [facility] E Referring Provider DO Jose M Landry II Attending Provider DO Maye Murray Attending Provider DO Maye Murray Primary Care Provider Spasic, [facility] E Primary Care Provider Spasic, [facility] Merv[facility] E Referring Provider DO Jose M Landry II Attending Provider Spasic, [facility] Merv[facility] E Primary Care Provider Spasic, [facility] E Referring Provider DO Jose M Landry II Attending Provider MD Sonal Márquez Jr Emergency Provider Spasic, [facility] E Primary Care Provider Spasic, [facility] Mervat Hughes Referring Provider [phone] Frantz GUILLEN, DO Jose M Wiggins Attending Provider LIAM GAYLE Admitting Unavailable NALINI, LIAM Gottlieb Attending Unavailable VALONE, DR PRAKASH Primary Care Unavailable ZIEBER, DR PRAVEEN Roy Consulting Unavailable LIAM GAYLE Consulting Unavailable Bunting, Maye Attending Unavailable Bunting, Maye Admitting Unavailable Bunting, Maye Primary Care Unavailable Lue, Kiko M Admitting Unavailable Lue, Kiko M Attending Unavailable Bunting, Maye Primary Care Unavailable Renata Wyatt Attending Unavailable Bunting, Maye Primary Care Unavailable Kasey Heller Referring Unavailable Renata Wyatt Admitting Unavailable Spasic, Mervat Hughes Admitting Unavailable Spasic, Mervat Hughes Attending Unavailable Bunting, Maye Primary Care Unavailable Lauren, Srinivas M Attending Unavailable Lauren, Srinivas Glynn Admitting Unavailable Spasic, Mervat E Primary Care [...] Bunting, Maye Primary Care Unavailable Spasic, Mervat Hughes Referring Unavailable Spasic, Mervat Hughes Primary Care Unavailable Frantz IIJose M Admitting Unavaila ble Adamowradha IIJose M Attending Unavaila ble Sonal Márquez Jr Admitting Unavailable Sonal Márquez Jr Attending Unavailable Bunting, Maye Primary Care Unavailable LuxisterRamakrishna Attending Unavailable Bunting, Maye Primary Care Unavailable Keister, Ramakrishna A Admitting Unavailable Ochoa, Bhakti Attending Unavailable [facility], [facility] Primary Care U navailable Bhakti Ochoa Admitting Unavailable Bunting, Maye Primary Care Unavailable Johan Taylor Consulting Unavailable Lindbloom, Chris Admitting Unavailabl e Doamekpor, Landon E Attending Unavailab le Mario, Olga Lidia Consulting Unavailable OdJose keating Consulting Unavailable Singhania, Manoj Consulting Unavailable Persaud, Christofer Consulting Unavailable Bakhous, Aziz Consulting Unavailable Geisert, Delores Consulting Unavailable Stoney, Jessica Consulting Unavailable Fawad Rocha Consulting Unavailable Jailene Castorena R Consulting Unavailable Hiram, Raimundo F Consulting Unavailable Master Mauricio Consulting Unavaildilshad e Bhakti Ochoa Consulting Unavailable Kiko Corbett Consulting Unavailable Julian Jones Attending Unavailable Spasilviac, Mervat Hughes Primary Care Unavailable Sweetie, Riya Consulting Unavailable Mitchel, Landon Hughes Admitting Unavailab le Bakkip, Aziz Consulting Unavailable Bhakti Ochoa Consulting Unavailable Sj Barron Consulting Unavailable Kiko Corbett Admitting Unavailable Kiko Corbett Attending Unavailable Maye Murray Primary Care Unavailable Everardo, DO Walton Primary Care Provider DO Maye Murray Attending Provider MD Sonal Márquez Jr Emergency Provider Spasic, [facility] Mervat Hughes Primary Care Provider Claudioc, [facility] Mervat Hughes Referring Provider DO Jose M Landry II Attending Provider Spasilviac, [facility] Mervat Hughes Attending Provider DO Srinivas Aguilar Emergency Provider TYSON Dwyer Emergency Provider MD Landon Grullon Admit Provider MD Riya Pitt Other Provider MD Yisel Andrade Other Provider ELBA Ochoa Other Provider MD Julian Jones Attending Provider MD Sj Barron Other Provider DO Serafin Pearson Emergency Provider MD Kevin Steinberg Admit Provider MD Kevin Steinberg Attending Provider [phone] MD Johan Taylor Other Provider MD Fawad Rocha Other Provider Bunting, Dr. Maye Nuno Primary Care Unavaila ble Bunting, Dr. Maye Nuno Primary Care Unavaila ble Bunting, Dr. Maye Nuno Primary Care Unavaila MD RENATA Case Attending Unavailable MD RENATA WYATT Referring Unavailable Travon Paz Attending Unavailable Bunting, Dr. Maye Nuno Primary Care UnavailMD RENATA Patrick Attending Unavailable MD RENATA WYATT Referring Unavailable Bunting, DO Walton Primary Care Provider ELBA Gomez Other Provider MD Riya Pitt Attending Provider [phone] Spasic, [facility]ervat E Primary Care Provider Spasic, [facility]ervat E Referring Provider DO Jose M Landry II Attending Provider MD Pedro Drake Emergency Provider DO Maye Murray Primary Care Provider Spasic, [facility]at E Referring Provider DO Jose M Landry II Attending Provider MAI Kessler Emergency Provider DO Riya Sampson Admit Provider DO Riya Sampson Attending Provider DO Jose M Landry II Attending Provider Spasic, [facility]erv[facility] E Referring Provider Spasic, [facility]ervat E Primary Care Provider MD iRya Pitt Other Provider Spasic, [facility]at E Attending Provider MD Fawad Rocha Other Provider Spasic, [facility]ervat E Primary Care Provider MD Riya Pitt Other Provider Spasic, [facility] Mervat E Primary Care Provider MD Riya Pitt Attending Provider Spasic, [facility] Mervat E Attending Provider [facility] Primary Care Prov ider Spasic, [facility] Mervat E Referring Provider Spasic, [facility]at E Primary Care Provider Spasic, [facility] Mervat E Referring Provider Spasic, [facility] E Primary Care Provider TYSON Dixon Attending Provider Spasic, [facility] E Primary Care Provider DO Jose M Landry II Attending Provider [phone] MD Johan Taylor Attending Provider BEE, ALEJANDRO Admitting Unavailable BEEJAJAIN Attending Unavailable SHELDON DE LEON Attending Unavailable RAIMUNDO MONTES Admitting Unavailable SONAL MÁRQUEZ JR Referring Unavailable BUNTING, MAYE RAY Primary Care Unavailable RIYA ARAMBULA Admitting Unavailable RIYA ARAMBULA Attending Unavailable BUNTING, MAYE RAY Primary Care Unavailable BEE, ALEJANDRO Admitting Unavailable BEE, ALEJANDRO Attending Unavailable DO Jose M Landry II Attending Provider Spasic, [facility] E Attending Provider [facility] Prov ider TYSON Dixon Attending Provider MD Johan Taylor Attending Provider NON STAFF Primary Care Provider Unavailabl e Spasic, [facility] Mervat E Primary Care Provider Spasic, [facility] Mervat E Referring Provider DO Jose M Landry II Attending Provider [phone] [facility] Prov ider Spasic, [facility] Mervat E Attending Provider Spasic, [facility] Mervat E Primary Care Provider Spasic, [facility] Mervat E Referring Provider MD Fawad Rocha Attending Provider [facility] Prov ider Spasic, [facility] Mervat E Attending Provider Spasic, [facility] Mervat E Primary Care Provider Spasic, [facility] Mervat E Referring Provider TYSON Dixon Attending Provider MD Johan Taylor Attending Provider NON STAFF Primary Care Provider Unavailabl e Spasic, [facility]ervat E Attending Provider DO Jose M Landry II Attending Provider [phone] MD Fawad Rocha Attending Provider Spasic, [facility] E Primary Care Provider Spasic, [facility] Mervat E Referring Provider Unavailable Primary Care Provider Unavailabl e MD Johan Taylor Attending Provider Spasic, [facility] Mervat E Referring Provider Spasic, [facility] Mervat E Referring Provider [facility] Primary Care Provider MD Fawad Rocha Attending Provider Spasic, [facility] Mervat E Primary Care Provider MD Johan Taylor Attending Provider DO Jose M Landry II Attending Provider Spasic, [facility] Mervat E Referring Provider [facility] Primary Care Provider Spasic, [facility] Mervat E Attending Provider [facility] Primary Care Provider [phone] Spasic, [facility] Mervat E Referring Provider Spasic, [facility] Mervat E Primary Care Provider MD Fawad Rocha Attending Provider Spasic, [facility] Mervat E Referring Provider Spasic, [facility] Mervat E Primary Care Provider Spasic, [facility] Mervat E Referring Provider MD Fawad Rocha Attending Provider MD Olga Lidia Martin Attending Provider DO Jose M Landry II Attending Provider [phone] NO FAMILY, PHYSICIAN Primary Care Provider Unava ilable Spasic, [facility] Mervta E Referring Provider MD Master Mauricio Attending Provider DO Jose M Landry II Attending Provider [phone] [facility] Primary Care Provider Spasic, [facility] Mervat E Attending Provider MD Fawad Rocha Attending Provider MD Olga Lidia Martin Attending Provider [phone] NO FAMILY, PHYSICIAN Primary Care Provider Unava ilable Spasic, [facility] Mervat E Referring Provider DO Jose M Landry II Attending Provider [phone] MD Master Mauricio Attending Provider NO FAMILY, PHYSICIAN Primary Care Provider MD Olga Lidia Rae Attending Provider MD Fawad Rocha Attending Provider NO FAMILY, PHYSICIAN Primary Care Provider MD Yisel Mckeon Attending Provider [phone] MD Olga Lidia Martin Attending Provider Kiko Corbett Attending Unavailable SpaELÍAS ortiz Primary Care Provider ELÍAS Santiago Attending Provider [phone] Allergies Allergy Classification Reported Allergen(s) Allergy Type Date of Onset Reaction(s) Facility (20 sources) Codeine; Translations: [codeine] Drug Allergy 6 Unknown (qualifier value), GI Upset [facility] (20 sources) Lisinopril; Translations: [lisinopril] Drug Allergy 2 anaphylaxis, Swelling (finding), Swelling [facility] (1 source) Amino Acids Drug Allergy [facility] (1 source) Codeine Drug Allergy [facility] (1 source) Codeine Drug Allergy 3 [facility] (1 source) Lisinopril Drug Allergy 3 [facility] Medications Current Medications Medication Drug Class(es) Dates Sig (Normalized) Sig (Original) acarbose 100 mg oral tablet (20 sources) alpha-Glucosidase Inhibitor Start: 05-25-2020 End: 05-18-2021 take 1 mg by mouth three times daily acarbose 100 mg oral tablet mg tab(s), Oral, TID, Refills(s) 0 Start Date: 06/07/22 Status: Ordered Start: 10-13-2019 End: 03-21-2020 take 100 mg by mouth three times daily Acarbose Discontinued 100 MG PO Three times daily October 13, 2019 12:00am March 21, 2020 10:34am Comment on above: Take 100 mg by mouth three times daily with meals. Alpha Lipoic 100 mg oral tablet (5 sources) Start: 06-07-2022 take 1 mg by [...] tablet (20 sources) Vitamin C Start: 04-02-2023 take 1 tablet by mouth once daily Ascorbic Acid (Vitamin C) (Vitamin C) 500 mg Tablet Active 500 MG PO Daily April 02, 2023 1:00am Start: 05-18-2021 End: 10-21-2022 take 500 mg by mouth once daily Ascorbic Acid (Vitamin C) Discontinued 500 MG PO Daily May 18, 2021 1:00am October 21, 2022 12:42pm take 1 capsule by mo [facility] once daily Vitamin C 500 MG Oral Capsule TAKE 1 CAPSULE Daily Quantity: 0 Refills: 0 Ordered: 21-Feb-2022 DO Active Aspir 81 (2 sources) Start: 11-19-2018 take 1 mg by mouth once daily Aspir 81 mg, Oral, Daily, Refills(s) 0 Start Date: 11/19/18 Status: Ordered atorvastatin 10 mg oral tablet (20 sources) HMG-CoA Reductase Inhibitor Start: 05-25-2020 take 10 mg by mouth at bedtime Atorvastatin Active 10 MG PO Bedtime May 25, 2020 1:00am Start: 12-25-2016 End: 05-25-2020 take 40 mg by mouth once daily Atorvastatin Discontinu ed 40 MG PO Daily December 25, 2016 12:00am May 25, 2020 10:40am Comment on above: Take 40 mg by mouth once daily. Boost Glucose Control - (3 sources) Boost Glucose Co ntrol - as directed Orally TWICE A DAY Active calcium acetate 668 mg oral tablet (6 sources) Start: 02-13-2023 take 2 tablets by mo uth every eight hours Cepacol Sore Throat 3 MG (8 sources) Cepacol Sore Thr oat 3 MG Mouth/Throat prn Active cloNIDine hydrochloride 0.1 mg oral tablet (20 sources) Central alpha-2 Adrenergic Agonist Start: 04-02-2023 take 0.1 mg by mouth twice daily Clonidine Hcl Active 0.1 MG PO Twice daily April 02, 2023 1:00am clopidogrel 75 mg oral tablet (20 sources) P2Y12 Platelet Inhibitor Start: 05-25-2020 take 75 mg by mouth once daily Clopidogrel Active 75 MG PO Daily May 25, 2020 1:00am Start: 11-19-2018 End: 03-21-2020 take 1 tablet by mouth once daily Clopidogrel (Plavix) 75 mg Tablet Discontinued 75 MG PO Daily October 13, 2019 12:00am March 21, 2020 10:35am Plavix Active Comment on above: Take 75 mg by mouth once daily. Take 1 tablet by tyshawn th once daily. Cymbalta 60 mg Cap-DR (6 sources) Start: 9 take 1 capsule by mouth once daily Cymbalta 60 mg Cap-DR 60 mg, Oral, Daily Start Date: 11/19/18 Status: Ordered DULoxetine 60 mg delayed release oral capsule (20 sources) Serotonin and Norepinephrine Reuptake Inhibitor Start: 3 take 60 mg by mouth once daily at bedtime Duloxetine Active 60 MG PO Daily at bedtime September 10, 2022 12:00am Start: 06-09-2020 duloxetine Ora l, Refills(s) 0 Start Date: 06/09/20 Status: Ordered Start: 03-21-2020 End: 09-10-2022 take 60 mg by mouth twice daily Duloxetine Discontinue d 60 MG PO Twice daily March 21, 2020 1:00am September 10, 2022 4:38pm Start: 11-19-2018 End: 03-21-2020 take 1 capsule by mouth once daily Duloxetine (Cymbalta) 60 mg Capsule,Delayed Release(Dr/Ec) Discontinued 60 MG PO Daily October 13, 2019 12:00am March 21, 2020 10:05am Start: 12-25-2016 End: 10-13-2019 Duloxetine Discontinued Dec 12:00am October 13, 2019 10:01am take 3 capsules by m outh every [...] 60 mg by mouth once daily. Ergocalciferol (10 sources) Provitamin D2 Compound Start: 04-02-2023 take 32413 [IU] by mouth every week Ergocalciferol (Vitamin D2) Active 40611 UNIT PO every week April 02, 2023 1:00am Start: 04-02-2023 take 15632 [IU] by m outh every week Ergocalciferol (Vitamin D2) Active 83309 UNIT PO every week April 02, 2023 12:00am ertapenem 1000 mg injection (3 sources) Penem Antibacterial Ertapenem So dium 1 GM as directed Injection Active ferrous sulfate 325 mg oral tablet (20 sources) Start: 04-02-2023 take 1 tablet by mouth once daily Ferrous Sulfate (Ferosul) 325 mg (65 mg iron) tablet Active 325 MG PO Daily April 02, 2023 1:00am Start: 05-18-2021 End: 10-21-2022 take 325 mg by mouth once Ferrous Sulfate Discontinued 325 MG PO every Friday, Friday, and Tuesday May 18, 2021 1:34pm October 21, 2022 12:42pm Start: 05-18-2021 End: 11-14-2021 take 325 mg by mouth once daily Ferrous Sulfate Discon tinued 325 MG PO Daily May 18, 2021 1:00am November 14, 2021 1:21pm Start: 05-30-2020 End: 10-21-2022 Ferrous Sulfate Discontinued 324 MG PO Every 48 hours 0 May 30, 2020 1:00am May 18, 2021 1:34pm Start: 03-21-2020 End: 05-25-2020 take 325 mg by mouth once daily Ferrous Sulfate Discon tinued 325 MG PO Daily March 21, 2020 1:00am May 25, 2020 1:41pm Start: 11-19-2018 take 1 tablet by tyshawn th three times daily ferrous sulfate 325 mg Tab 325 mg = 1 tab(s), Oral, TID Start Date: 11/19/18 Status: Ordered Start: 12-25-2016 End: 01-26-2020 take 325 mg by mouth once daily Ferrous Sulfate Discon tinued 325 MG PO Daily December 25, 2016 12:00am January 26, 2020 9:52am take 1 tablet by tyshawn th once daily Ferrous Sulfate 325 (65 Fe) MG 1 tablet Orally ONCE A DAY Active Comment on above: Take 325 mg by mouth daily with breakfast. folic acid 1 mg oral tablet (20 sources) Start: 03-14-2021 take 1 mg by mouth once daily Folic Acid Active 1 MG PO Daily November 14, 2021 12:00am Comment on above: Take 1 mg by mouth o nce daily. furosemide 40 mg oral tablet (20 sources) Loop Diuretic Start: 11-21-2021 End: 04-16-2023 take 40 mg by mouth twice daily Furosemide Active 40 MG PO Twice daily April 16, 2023 9:35am Start: 11-21-2021 take 1 mg by mouth once daily furosemide 40 mg Tab mg tab(s), Oral, Daily, Refills(s) 0 Start Date: 06/07/22 Status: Ordered Start: 11-21-2021 take 40 mg by mouth twice daily Furosemide Active 40 MG PO BID@0800,1600 0 November 21, 2021 12:00am Start: 12-25-2016 End: 05-25-2020 take 40 mg by mouth once daily Furosemide Discontinued 40 MG PO Daily December 25, 2016 12:00am May 25, 2020 1:42pm Start: 12-25-2016 End: 05-25-2020 Comment on above: Take 40 mg by mouth twice daily. gabapentin 600 mg oral tablet (20 sources) Anti-epileptic Agent Start: 11-21-2021 End: 04-16-2023 take 600 mg by mouth once daily at bedtime Gabapentin Active 600 MG PO Daily at bedtime April 16, 2023 9:35am Start: 11-21-2021 take 600 mg by mouth once daily in the evening Gabapentin Active 600 MG PO Every evening 0 November 21, 2021 12:00am Start: 12-25-2016 End: 11-21-2021 take 800 mg by mouth twice daily Gabapentin Discontinued 800 MG PO Twice daily December 25, 2016 12:00am March 21, 2020 10:06am Start: 12-25-2016 End: 11-21-2021 take 1 tablet by mouth three times daily Gabapentin (Neurontin) 800 mg Tablet Discontinued 800 MG PO Three times daily January 26, 2020 12:00am November 21, 2021 7:18pm take 1 tablet by tyshawn th every twenty-four hours take 1 tablet by tyshawn th three [...] Insulin Aspart) 100 unit/mL Solution Active 0 UNIT SUBCUT Before meals and at bedtime March 21, 2020 1:00am 151-200 0 units 201-250 2 units 251-300 [...] Insulin) 100 unit/mL (3 mL) insulin pen (13 sources) Start: 05-18-2021 Insulin Detemir U-100 (Levemir Flextouch U100 Insulin) 100 unit/mL (3 mL) insulin pen Active 42 UNIT SUBCUT Every morning May 18, 2021 1:00am Start: 05-18-2021 Insulin Detemi r U-100 (Levemir Flextouch U100 Insulin) 100 unit/mL (3 mL) insulin pen Active 42 UNIT SUBCUT Every morning May 18, 2021 12:00am Start: 05-18-2021 Insulin Detemi r U-100 (Levemir Flextouch U100 Insulin) 100 unit/mL (3 mL) insulin pen Active 42 UNIT SUBCUT Daily May 18, 2021 12:00am Lac-Hydrin Twelve (3 sources) Lac-Hydrin Twelv e Active ammonium lactate 120 mg/ml topical lotion (20 sources) Start: 10-22-2022 Ammonium Lacta te Active 1 APPLIC TOPICAL Daily October 22, 2022 12:00am Start: 10-22-2022 Start: 05-25-2020 End: 10-21-2022 Ammonium Lactate Discontinue d 1 APPLIC TOPICAL Every shift May 25, 2020 1:00am October 21, 2022 12:42pm apply to intact areas of BLE every day shift fri karlo sat Start: 05-25-2020 End: 10-21-2022 ammonium lactate Top 12% Crm Topical, BID, Refill(s) 0 Start Date: 06/07/22 Status: Ordered Start: 05-25-2020 Ammonium Lacta te Active 1 APPLIC TOPICAL Every shift May 25, 2020 1:00am Ammonium Lactate 12 % 1 application Externally Twice a day Active ammonium lactate (LAC-HYDRIN) 12 % cream Apply to affected area as needed. 0 Active Comment on above: Apply to affected ar ea as needed. Levemir FlexTouch 100 UNIT/M L (6 sources) Levemir FlexTouc h 100 UNIT/ML as directed Subcutaneous 42 units in the am Active losartan potassium 50 mg oral tablet (20 sources) Angiotensin 2 Receptor Preston Start: 04-02-2023 take 50 mg by mouth once daily in the morning Losartan Active 50 MG PO Every morning April 02, 2023 1:00am Start: 11-21-2021 End: 10-21-2022 take 50 mg by mouth once daily Losartan Discontinued 5 0 MG PO Daily November 21, 2021 7:13pm October 21, 2022 12:42pm Start: 11-21-2021 take 50 mg by mouth once daily Losartan Active 50 MG PO Daily November 21, 2021 7:13pm Start: 05-18-2021 End: 11-21-2021 Start: 03-21-2020 End: 05-30-2020 Start: 09-30-2018 End: 11-21-2021 take 25 mg by mouth once daily Losartan Discontinued 2 5 MG PO Daily May 18, 2021 1:00am November 21, 2021 7:18pm Start: 09-30-2018 End: 01-26-2020 take 1 tablet by mouth once daily Losartan (Cozaar) 50 mg Tablet Discontinued 50 MG PO Daily October 13, 2019 12:00am January 26, 2020 9:53am take 1 tablet by tyshawn once daily losartan (COZAAR) 100 mg tablet Take 100 mg by mouth once daily. 0 Suspended Comment on above: Take 100 mg by mouth once daily. melatonin 5 mg oral tablet (20 sources) Start: 05-18-2021 take 5 mg by mouth at bedtime Melatonin Active 5 MG PO Bedtime May 18, 2021 1:00am Start: 06-09-2020 melatonin 5 mg , Once a day (at bedtime), Refills(s) 0 Start Date: 06/09/20 Status: Ordered Start: 06-09-2020 melatonin Once a day (at bedtime), Refills(s) 0 Start Date: 06/09/20 Status: Ordered take 1 capsule by mo [facility] at bedtime Melatonin 5 MG Oral Capsule TAKE 1 CAPSULE Bedtime Quantity: 0 Refills: 0 Ordered: 21-Feb-2022 DO Active Multivitamins - (8 sources) Multivitamins - Orally Active NIFEdipine 60 mg osmotic 24 hr extended release oral tablet (20 sources) Dihydropyridine Calcium Channel Preston Start: 10-21-2022 Nifedipine Active 90 MG PO Every morning October 21, 2022 12:41pm 30mg and 60mg tab for 90mg total Start: 09-12-2022 End: 10-21-2022 take 60 mg by mouth once daily Nifedipine Discontinued 60 MG PO Daily September 12, 2022 12:00am October 21, 2022 12:41pm Start: 09-12-2022 End: 10-21-2022 Start: 03-03-2023 take 1 mg by mouth once daily NIFEdipine 30 mg ER Tab mg tab(s), Oral, Daily, Refills(s) 0 Start Date: 06/07/22 Status: Ordered Start: 11-21-2021 End: 09-12-2022 take 30 mg by mouth once daily Nifedipine Discontinued 30 MG PO Daily 0 November 21, 2021 12:00am September 12, 2022 2:36pm Start: 11-21-2021 take 30 mg by mouth once daily Nifedipine Active 30 MG PO Daily 0 November 21, 2021 12:00am take 1 tablet by tyshawn th every twenty-four hours take 1 tablet by tyshawn th every twenty-four hours NIFEdipine ER 30 MG 1 tablet on an empty stomach Orally Once a day Active take 1 tablet by tyshawn th once daily NIFEdipine ER (PROCARDIA XL) 30 mg 24 hr tablet Take 30 mg by mouth once daily. 0 Active Comment on above: Take 30 mg by mouth once daily. polyethylene glycol 3350 09581 mg powder for oral solution (20 sources) Osmotic Laxative Start: 11-21-2021 Polyethylene Glycol 3350 (Miralax) 17 gram Powder In Packet Active 17 GM PO Daily 0 November 21, 2021 12:00am Start: 11-21-2021 take 1 g by mouth once daily p olyethylene glycol 3350 17 gram packet gm, Oral, Daily, Refills(s) 0 Start Date: 06/07/22 Status: Ordered Start: 11-21-2021 Polyethylene G lycol 3350 (Miralax) 17 gram Powder In Packet Active 17 GM PO Daily 0 November 21, 2021 12:00am Polyethylene Glycol 3350 17 GM/SCOOP (3 sources) Polyethylene Gly col 3350 17 GM/SCOOP 1 scoop mixed with 8 ounces of fluid Orally Once a day Active Probiotic - (8 sources) Probiotic - Oral ly Active Saccharomyces boulardii lyo (3 sources) tamsulosin hydrochloride 0.4 mg oral capsule (20 sources) alpha-Adrenergic [place] Start: 07-17-2022 take 1 capsule by mouth twice daily Tamsulosin (Flomax) 0.4 mg Capsule Active 0.4 MG PO Twice daily July 17, 2022 12:00am Start: 11-19-2018 take 1 capsule by mo [facility] once daily tamsulosin 0.4 mg Cap 0.4 mg = 1 cap(s), Oral, Daily Start Date: 11/19/18 Status: Ordered Start: 12-25-2016 End: 04-22-2022 take 1 capsule by mouth twice daily Tamsulosin (Flomax) 0.4 mg capsule,extended release 24hr Discontinued 0.4 MG PO Twice daily December 25, 2016 12:00am April 22, 2022 11:08am Comment on above: Take 0.4 mg by [...] tablet (20 sources) Start: 03-21-2020 End: 10-21-2022 take 2 tablets by mouth every four hours Acetaminophen (Tylenol) 325 mg Tablet Discontinued 650 MG PO Q4H March 21, 2020 1:00am October 21, 2022 12:42pm Start: 11-19-2018 take 1 tablet by tyshawn every four hours Tylenol 325 mg Tab 325 mg = 1 tab(s), Oral, q4hr Start Date: 11/19/18 Status: Ordered take 2 tablets by [facility] every six hours as needed acetaminophen (TYLENOL) 325 mg tablet Take 650 mg by mouth every 6 hours as needed. 0 Active Comment on above: Take 650 mg by mouth every 6 hours as needed. aluminum hydroxide 40 mg/ml / magnesium hydroxide 40 mg/ml / simethicone 4 mg/ml oral suspension (7 sources) aluminum-magnesi um hydroxide-simethicon e (MAALOX,MYLANTA,MAG- AL PLUS) 200-200-20 mg/5 mL suspension Take by mouth every 6 hours as needed. 0 Active Comment on above: Take by mouth every 6 hours as needed. amitriptyline hydrochloride 10 mg oral tablet (20 sources) Tricyclic Antidepressant Start: 11-20-19 End: 07-18-19 take 10 mg by mouth at bedtime Amitriptyline Discontinued 10 MG PO Bedtime May 25, 2020 1:00am July 17, 2022 7:26am Start: 12-25-2016 End: 05-25-2020 take 25 mg by mouth once daily Amitriptyline Discontin ued 25 MG PO Daily December 25, 2016 12:00am May 25, 2020 10:40am take 10 mg by mouth once daily at bedtime amitriptyline (ELAVIL) 25 mg tablet Take 10 mg by mouth daily at bedtime. 0 Active take 1 tablet by tyshawn once daily at bedtime amitriptyline (ELAVIL) 25 mg tablet Take 25 mg by mouth daily at bedtime. 0 Active take 1 tablet by tyshawn every twenty-four hours Amitriptyline HCl 10 MG 1 tablet at bedtime Orally Once a day Active Comment on above: Take 25 mg by mouth daily at bedtime. Take 10 mg by mouth daily at bedtime. amoxicillin 500 mg oral capsule (7 sources) Penicillin-class Antibacterial Start: 07-03-19 take 1 capsule by mouth every eight hours amoxicillin (POLYMOX, AMOXIL) 500 mg capsule take 1 capsule by mouth every 8 hours for 7 days 0 07/02/2018 Active Comment on above: take 1 capsule by [facility] every 8 hours for 7 days amoxicillin 875 mg / clavulanate 125 mg oral tablet (20 sources) Penicillin-class Antibacterial Start: 04-04-20 End: 05-03-19 take 1 tablet by mouth twice daily Amoxicillin-Pot Clavulanate (Augmentin) 875-125 mg tablet Discontinued 1 TAB PO Twice daily 24 01April 04, 2020 1:00am May 03, 2020 10:32am Start: 04-04-2020 End: 05-03-2020 Start: 02-14-2020 End: 03-15-2020 take 1 tablet by mouth twice daily Amoxicillin-Pot Clavulanate (Augmentin) 875-125 mg tablet Discontinued 1 TAB PO Twice daily 24 01February 14, 2020 1:00am March 15, 2020 10:52am Start: 02-14-2020 End: 03-15-2020 Start: 12-25-2016 End: 10-13-2019 Amoxicillin-Pot Clavulanate (Augmentin) 875-125 mg Tablet Discontinued TABLET December 25, 2016 12:00am October 13, 2019 9:55am Ascorbic Acid / Bioflavonoid s (6 sources) Vitamin C ascorbic acid-bi oflavonoids 500-500 mg cap Take by mouth once daily. 0 Suspended ascorbic acid-bi oflavonoids 500-500 mg cap Take by mouth once daily. 0 Active Comment on above: Take by mouth once d aily. aspirin 81 mg chewable tablet (20 sources) Platelet Aggregation Inhibitor, Nonsteroidal Anti-inflammatory Drug Start: 12-25-2016 End: 05-25-2020 take 81 mg by mouth once daily Aspirin Discontinued 81 MG PO Daily December 25, 2016 12:00am May 25, 2020 1:39pm take 1 tablet by mouth once marcia y aspirin, enteric coated (ASPIRIN, ENTERIC COATED) 81 mg EC tablet Take 81 mg by mouth once daily. 0 Active Comment on above: Take 81 mg by mouth once daily. benzocaine 7.5 mg / dextromethorphan hydrobromide 5 mg oral lozenge (20 sources) Uncompetitive J-ugxume-F-aspartate Receptor Antagonist, Sigma-1 Agonist, Standardized Chemical Allergen Start: 03-21-20 End: 05-25-19 take 5-7.5 mg by mouth every four hours Dextromethorphan-Be nzocaine (Cepacol Sore Throat-Cough) 5-7.5 mg Lozenge Discontinued 1 LOZENGE PO Q4H March 21, 2020 1:00am May 25, 2020 1:41pm Start: 03-21-2020 End: 05-25-2020 bisacodyl 10 mg rectal suppository (7 sources) [...] MG PO Daily 4 May 30, 2020 1:00am June 26, 2020 3:41pm must administer with a meal/food cephalexin 500 mg oral capsule (20 sources) Cephalosporin Antibacterial Start: 08-28-19 End: 09-13-19 take 500 mg by mouth every six hours Cephalexin Discontinued 500 MG PO Q6H 28 August 27, 2022 12:00am September 12, 2022 2:32pm Start: 09-16-2020 End: 05-18-2021 take 1000 mg by mouth every twelve hours Cephalexin Discontinued 1000 MG PO Q12H 40 September 16, 2020 12:00am May 18, 2021 1:34pm Start: 09-16-2020 End: 05-18-2021 Start: 05-03-2020 End: 05-10-2020 take 1 capsule by mouth three times daily Cephalexin (Keflex) 500 mg capsule Discontinued 500 MG PO Three times daily 30 May 03, 2020 1:00am May 10, 2020 10:59am Start: 05-03-2020 End: 05-10-2020 Start: 03-15-2020 End: 03-21-2020 take 1 capsule by mouth every eight hours Cephalexin (Keflex) 500 mg capsule Discontinued 500 MG PO Q8H 42 March 15, 2020 1:00am March 21, 2020 10:34am Start: 03-15-2020 End: 03-21-2020 cholecalciferol 0.05 mg oral capsule (20 sources) Vitamin D Start: 12-25-2016 End: 05-25-2020 take 1 capsule by mouth once daily Cholecalciferol (Vitamin D3) (Vitamin D3) 2,000 unit Capsule Discontinued 2000 UNIT PO Daily December 25, 2016 12:00am May 25, 2020 1:40pm clindamycin 300 mg oral capsule (20 sources) Lincosamide Antibacterial Start: 05-03-2020 End: 05-10-2020 take 300 mg by mouth three times daily Clindamycin Hcl Discontinued 300 MG PO Three times daily 30 May 03, 2020 1:00am May 10, 2020 10:59am Start: 03-15-2020 End: 03-21-2020 take 300 mg by mouth every eight hours Clindamycin Hcl Discontinued 300 MG PO Q8H 42 March 15, 2020 1:00am March 21, 2020 10:35am Start: 03-15-2020 End: 03-21-2020 Start: 01-28-2020 End: 02-14-2020 take 300 mg by mouth four times daily Clindamycin Hcl Discontinued 300 MG PO Four times daily January 28, 2020 12:00am February 14, 2020 2:47pm Start: 01-28-2020 End: 02-14-2020 Start: 01-19-2020 End: 01-28-2020 Clindamycin Phosphate Discon tinued 1 APPLIC TOPICAL Once 60 January 19, 2020 12:00am January 28, 2020 10:11am Start: 01-19-2020 End: 01-28-2020 doxycycline hyclate 100 mg oral tablet (20 sources) Tetracycline-class Drug Start: 05-25-2020 End: 05-30-2020 take 100 mg by mouth once daily Doxycycline Hyclate Discontinued 100 MG PO Daily May 25, 2020 1:00am May 30, 2020 1:35pm Start: 07-02-2018 doxycycline hy clate (VIBRAMYCIN) 100 mg capsule empagliflozin 10 mg oral tablet (20 sources) Sodium-Glucose Cotransporter 2 Inhibitor Start: 05-25-2020 End: 05-30-2020 take 10 mg by mouth once daily Empagliflozin Discontinued 10 MG PO Daily May 25, 2020 1:00am May 30, 2020 1:35pm sodium hypochlorite 2.5 mg/ml topical solution (20 sources) Start: 11-14-2021 End: 01-11-2022 Sodium Hypochlorite (Dakin's Solution) 0.25 % Solution Discontinued 1 IRRIG TOPICAL Twice daily November 14, 2021 12:00am January 11, 2022 4:06pm Start: 05-25-2020 End: 09-16-2020 Sodium Hypochlorite Disconti nued 1 APPLIC TOPICAL 3 Times a week May 25, 2020 1:00am September 16, 2020 5:24pm Start: 05-25-2020 End: 09-16-2020 Start: 01-19-2020 End: 03-21-2020 Sodium Hypochlorite (Dakin's Solution) 0.25 % solution Discontinued 1 APPLIC TOPICAL Daily 473 March 15, 2020 1:00am March 21, 2020 10:35am Start: 01-19-2020 End: 03-21-2020 3 ml insulin detemir 100 unt/ml pen injector (20 sources) Insulin Analog Start: 05-25-2020 End: 05-18-2021 inject 40 [IU] by subcutaneous injection once daily Insulin Detemir U-100 Discontinued 40 UNIT SUBCUT Daily May 25, 2020 1:00am May 18, 2021 1:27pm Start: 05-25-2020 End: 05-18-2021 Start: 11-19-2018 Levemir 100 un its/mL Injection-Insulin SubCutaneous, Refills(s) 0 Start Date: 11/19/18 Status: Ordered Start: 12-25-2016 End: 03-21-2020 inject 30 [IU] by subcutaneous injection once daily at bedtime Insulin Detemir U-100 (Levemir U-100 Insulin) 100 unit/mL Solution Discontinued 30 UNIT SUBCUT Daily at bedtime January 19, 2020 12:00am March 21, 2020 10:30am Levemir FlexTouc h 100 UNIT/ML as directed [...] 3 billion cell Capsule (20 sources) Start: End: take 3 capsules by mouth once [...] 22, 2019 8:19am levoFLOXacin 750 mg oral tablet (20 sources) Quinolone Antimicrobial Start: 10-24-2022 End: 01-17-2023 take 750 mg by mouth every twenty-four hours Levofloxacin Discontinued 750 MG PO Q24H October 24, 2022 12:00am January 17, 2023 1:18pm Start: 05-22-2020 End: 05-25-2020 take 500 mg by mouth once daily Levofloxacin Discontin ued 500 MG PO Daily 10 May 22, 2020 1:00am May 25, 2020 11:55am Start: 10-13-2019 End: 10-27-2019 take 1 tablet by mouth once daily Levofloxacin (Levaquin) 750 mg Tablet Discontinued 750 MG PO Daily October 13, 2019 12:00am October 27, 2019 10:04am Start: 10-13-2019 End: 10-27-2019 3 ml liraglutide 6 mg/ml pen injector (20 sources) GLP-1 Receptor Agonist Start: 05-25-2020 End: 09-16-2020 inject 1.8 mg by subcutaneous injection once daily Liraglutide Discontinued 1.8 MG SUBCUT Daily May 25, 2020 1:00am September 16, 2020 5:24pm Start: 10-13-2019 End: 03-21-2020 Liraglutide (Victoza 2-Leo) 0.6 mg/0.1 mL (18 mg/3 mL) Pen Injector Discontinued 1.8 MG SUBCUT Daily October 13, 2019 12:00am March 21, 2020 10:35am Start: 11-19-2018 inject 1.8 mg by sub cutaneous injection once daily Victoza 1.8 mg, SubCutaneous, Daily Start Date: 11/19/18 Status: Ordered LIRAGLUTIDE (CHANO TOZA 2-LEO SUBCUTANEOUS) Inject subcutaneously. As directed 0 Suspended LIRAGLUTIDE (CHANO TOZA 2-LEO SUBCUTANEOUS) Inject subcutaneously. As directed 0 Active Comment on above: Inject subcutaneousl y. As directed loteprednol etabonate 5 mg/ml ophthalmic suspension (20 sources) Start: 11-15-19 End: 07-18-19 take 1 drop(s) into the eye(s) four times daily Loteprednol Etabonate Discontinued 1 DROPS EYE-LEFT Four times daily November 14, 2021 12:00am July 17, 2022 7:26am Start: 11-14-2021 End: 07-17-2022 take 1 drop(s) into the eye(s) f our times daily magnesium hydroxide 80 mg/ml oral suspension (7 sources) magnesium hydrox caron (MOM) 400 mg/5 mL suspension Take by mouth once daily as needed. 0 Active Comment on above: Take by mouth once d aily as needed. meropenem 500 mg injection (20 sources) Penem Antibacterial Start: 023 End: 023 take 0.5 g intravenously every twelve hours Meropenem Discontinued 0.5 GM IV Q12H 80 40 September 12, 2022 12:00am October 24, 2022 4:04pm Multivitamin preparation (20 sources) Start: 017 End: 021 take 1 tablet by mouth once daily [...] daily. Nacl-Zn Ac-Vit B6-Citric Acid (Wound Cleanser) [place],Non-Aerosol (20 sources) Start: 05-18-2021 End: 11-14-2021 Nacl-Zn Ac-Vit B6-Citric Acid (Wound Cleanser) [place],Non-Aerosol Discontinued 1 SPRAY IRRIGATION Daily May 18, 2021 12:00am November 14, 2021 12:21pm Start: 05-18-2021 End: 11-14-2021 Nacl-Zn Ac-Vit B6-Citric Aci d (Wound Cleanser) [place],Non- Aerosol Discontinued 1 SPRAY IRRIGATION Daily May [...] tablet (20 sources) Start: 7 End: 0 take 1 tablet by mouth once daily Plecanatide (Trulance) 3 mg tablet Discontinued 3 MG PO Daily December 25, 2016 12:00am January 26, 2020 9:53am Plecanatide (Trulance) 3 mg Tablet (20 sources) Start: 0 End: take 1 tablet by mouth once daily [...] Active Comment on above: Take by mouth. potassium chloride 20 meq extended release oral tablet (20 sources) Start: 05-18-2021 End: 07-10-2023 take 20 mEq by mouth once daily Potassium Chloride Discontinued 20 MEQ PO Daily May 18, 2021 1:00am July 10, 2023 5:46pm Start: 05-18-2021 take 1 tablet by tyshawn twice daily potassium chloride 20 mEq ER Tab mEq tab(s), Oral, BID, Refills(s) 0 Start Date: 06/07/22 Status: Ordered Start: 03-21-2020 End: 05-25-2020 Potassium Chloride (Klor-Con M20) 20 mEq Tablet,Er Particles/Crystals Discontinued 20 MEQ PO Twice daily March 21, 2020 1:00am May 25, 2020 1:44pm Start: 12-25-2016 End: 01-26-2020 take 30 mEq by mouth once daily Potassium Chloride Dis continued 30 MEQ PO Daily December 25, 2016 12:00am January 26, 2020 9:53am Start: 12-25-2016 End: 01-26-2020 take 1 dose by mouth once daily at mealtime Potassium Chloride 20 MEQ 1 packet with food Orally Once a day Active take 1 tablet by tyshawn th every twenty-four hours Klor-Con M20 20 mEq 1 tablet with food Orally qd Active PSEUDOEPHEDRINE/ACETAMINOPHE N (CEPACOL SORE THROAT ORAL) (7 sources) PSEUDOEPHEDRINE/ ACETAMINOPHEN (CEPACOL SORE THROAT ORAL) Take by mouth. 0 Suspended PSEUDOEPHEDRINE/ ACETAMINOPHEN (CEPACOL SORE THROAT ORAL) Take by mouth. 0 Active Comment on above: Take by mouth. saccharomyces boulardii 250 mg oral capsule (20 sources) Start: End: 3 take 1 capsule by mouth twice daily at mealtime Saccharomyces Boulardii (Florastor) 250 mg Capsule Discontinued 250 MG PO Twice daily with meals 0 November 21, 2021 12:00am October 21, 2022 12:42pm Start: 11-21-2021 take 1 capsule by [facility] twice daily at mealtime Saccharomyces Boulardii (Florastor) 250 mg Capsule Active 250 MG PO Twice daily with meals 0 November 21, 2021 12:00am Saccharomyces lalo ulardii Active 0.25 mg, 0.5 mg dose 1.5 ml semaglutide 1.34 mg/ml pen injector (20 sources) Start: 05-25-2020 End: 05-30-2020 Semaglutide (Ozempic) 0.25 mg or 0.5 mg(2 mg/1.5 mL) pen injector Discontinued 0.5 MG SUBCUT every week May 25, 2020 1:00am May 30, 2020 1:35pm On sodium bicarbonate 650 mg oral tablet (20 sources) Start: 11-21-2021 End: 04-02-2023 take 650 mg by mouth three times daily Sodium Bicarbonate Active 650 MG PO Three times daily April 02, 2023 12:33pm Start: 11-21-2021 End: 04-02-2023 take 1300 mg by mouth three times daily Sodium Bicarbonate Discontinued 1300 MG PO Three times daily 180 September 12, 2022 12:00am April 02, 2023 12:33pm Start: 11-21-2021 End: 09-12-2022 take 3 tablets by mouth once daily sodium bicarbonate 650 mg Tab 1,950 mg = 3 tab(s), Oral, Daily, # 60 tab(s), Refills(s) 0 Start Date: 06/07/22 Status: Ordered Start: 11-21-2021 take 650 mg by mouth three times daily Sodium Bicarbonate Active 650 MG PO Three times daily 0 November 21, 2021 12:00am take 2 tablets by mo [facility] every eight hours take 1 tablet by [facility] every eight hours Sodium Bicarbonate 650 MG 1 TABLET Orally THREE TIMES A DAY Active sulfamethoxazole 800 mg / trimethoprim 160 mg oral tablet (20 sources) Dihydrofolate Reductase Inhibitor Antibacterial, Sulfonamide Antimicrobial Start: 08-27-2022 End: 10-21-2022 take 1 tablet by mouth every twelve hours Sulfamethoxazole-Trimethoprim (Bactrim Ds) 800-160 mg tablet Discontinued 1 TAB PO Q12H 14 August 27, 2022 12:00am October 21, 2022 12:42pm Start: 08-27-2022 End: 10-21-2022 sulfamethoxazole -trimethoprim (BACTRIM DS,SEPTRA DS) 800-160 mg per tablet Take by mouth twice daily. 0 Active Comment on above: Take by mouth twice daily. thioctic acid 300 mg oral capsule (20 sources) Start: 03-21-2020 End: 10-21-2022 take 200 mg by mouth once daily Alpha Lipoic Acid Discontinued 200 MG PO Daily March 21, 2020 1:00am October 21, 2022 12:42pm take 1 capsule by mouth every tw enty-four hours Vancomycin - Pharmacy Dosing (13 sources) Start: 09-12-2022 End: 10-21-2022 take 1 g intravenously once Vancomycin - Pharmacy Dosing Discontinued 1 EACH IV Once September 12, 2022 12:00am October 21, 2022 12:42pm 1 gm IV q 48 with pharmacy to dose for 40 days Start: 09-12-2022 End: 10-21-2022 take 1 g intravenously once Vancomycin - Pharmacy Dosi ng Discontinued 1 EACH IV Once September 11, [...] Dextrose 5 % Active 0 .ROUTE .COMPLEX 5000 November 21, 2021 12:00am For a TOTAL of [...] 11-15-19 22 06-26-2020 Episodic Acute cerebrovascular disease (7 sources) Cerebrovascular accident 10-16-2018 Chronic Acute myocardial infarction (7 sources) Myocardial infarction 10-16-2018 Chronic Administrative/social admission (6 sources) Unable to transfer from wheelchair to chair; Translations: [Other symptoms involving nervous and musculoskeletal systems] Episodic Alcohol-related disorders (20 sources) Alcohol abuse; Translations: [Alcohol abuse, uncomplicated] 06-26-2020 Chronic Anxiety disorders (7 sources) Anxiety disorder 10-16-2018 Chronic Bacterial infection; [...] sources) Coronary atherosclerosis; Translations: [Coronary atherosclerosis of [place] coronary artery] Onset: 07-25-1907-17-2022 Chronic Deficiency and other anemia (18 sources) Anemia secondary to renal failure; Translations: [...] 07-19-19 Resolved : 03-14-20 Chronic Esophageal disorders (10 sources) Gastroesophageal reflux disease; Translations: [Gastroesophageal reflux disease without esophagitis] Onset: 07-18-19 23 10-16-2018 Chronic Esophageal disorders (18 sources) Disorder of esophagus; Translations: [Other specified diseases of esophagus] Episodic Essential hypertension (20 sources) Hypertensive disorder; Translations: [Essential (primary) hypertension] 10-16-2018 Chronic Fluid and electrolyte disorders (20 sources) Metabolic acidosis, increased anion gap (IAG); Translations: [Acidosis] Onset: 11-15-19 22 06-26-2020 Episodic Genitourinary symptoms and ill-defined conditions (7 sources) Post-micturition incontinence 11-19-2018 Chronic Genitourinary symptoms and ill-defined conditions (20 sources) Increased frequency of urination; Translations: [Nocturia] Onset: 07-18-19 23 10-16-2018 Episodic Hepatitis (18 sources) Chronic hepatitis C; Translations: [Chronic viral hepatitis C] Chronic Hepatitis (7 sources) Viral hepatitis C 10-16-2018 Episodic Hyperplasia of prostate (15 sources) Benign prostatic hypertrophy with outflow obstruction; [...] ankle AND/OR foot; Translations: [Osteomyelitis, unspecified] Onset: 11-15-19 22 11-14-2021 Chronic Mood disorders (7 sources) Depressive disorder 10-16-2018 Chronic Open wounds of extremities (7 sources) Unspecified open wound, right lower leg, initial encounter; Translations: [Injury of right foot] Onset: 09-26-19 Resolved : 09-26-19 Episodic Osteoarthritis (7 sources) Arthritis 10-16-2018 Chronic Other aftercare (4 sources) Long-term current use of drug therapy; Translations: [vermin exterminator (current) use of antithrombotics/antiplate lets] Onset: 12-08-19 Episodic Other circulatory disease (6 sources) Acquired arteriovenous fistula aneurysm; Translations: [Arteriovenous fistula, acquired] Chronic Other circulatory disease (11 sources) Arteriovenous fistula, acquired; Translations: [Arteriovenous fistula, acquired] Chronic Other circulatory disease (10 sources) Arteriovenous fistula; Translations: [Arteriovenous fistula, acquired] 08-05-2023 Chronic Other connective tissue disease (18 sources) Pain in left foot; Translations: [Pain in left foot] Episodic Other diseases of kidney and ureters (20 sources) Hemorrhage of kidney; Translations: [Other specified disorders of kidney and ureter] 07-17-2022 Chronic Other diseases of kidney and ureters (6 sources) Hyperparathyroidism due to renal insufficiency; Translations: [...] (20 sources) Unspecified hydronephrosis; Translations: [Hydronephrosis] Onset: 11-15-19 22 11-21-2021 Episodic Other diseases of kidney and ureters (8 sources) Stricture of ureter; Translations: [Crossing vessel and stricture of ureter without hydronephrosis] Onset: 06-08-19 Episodic Other disorders of stomach and duodenum (20 sources) Gastroparesis syndrome; Translations: [Gastroparesis] Onset: 07-18-19 23 07-17-2022 Episodic Other endocrine disorders (20 sources) Hypoglycemia; Translations: [Hypoglycemia, unspecified] 10-13-2022 Chronic Other gastrointestinal disorders (18 sources) Chronic idiopathic constipation; Translations: [Other constipation] Episodic Other gastrointestinal disorders (18 sources) Abnormal feces; Translations: [Other fecal abnormalities] Episodic Other gastrointestinal disorders (18 sources) Constipation; Translations: [Constipation, unspecified] Episodic Other injuries and conditions due to external causes (20 sources) Local infection of wound; Translations: [Other injury of unspecified body region, initial encounter] 06-06-2023 Episodic Other injuries and conditions due to external causes (15 sources) Other injury of unspecified body region, initial encounter; Translations: [Posttraumatic wound infection not elsewhere classified] 09-10-2022 Episodic Other male genital disorders (8 sources) Male erectile dysfunction, unspecified; Translations: [Erectile [...] sources) Sepsis; Translations: [Sepsis, unspecified organism] Onset: 11-15-19 22 11-14-2021 Episodic Skin and subcutaneous tissue infections (20 sources) Cellulitis and abscess of lower limb; Translations: [Cellulitis of right lower limb] Onset: 11-15-19 22 11-19-2021 Episodic Substance-related disorders (20 sources) Smoker; Translations: [Nicotine dependence, unspecified, uncomplicated] Onset: 07-19-19 23 11-19-2018 Chronic Comment on above: 1 pack every 3 days; Unclassified (7 sources) Patient encounter status 12-07-2021 Unclassified (1 source) Acidosis, unspecified; Translations: [Acidosis, unspecified] Onset: 08-30-19 Unclassified (1 source) Other mechanical complication of nephrostomy catheter, initial encounter; Translations: [Other mechanical complication of nephrostomy catheter, initial encounter] Onset: 07-17-19 Unclassified (1 source) Encounter for preprocedural cardiovascular examination; Translations: [Encounter for preprocedural cardiovascular examination] Onset: 03-05-20 Unclassified (1 source) Encounter for preprocedural laboratory examination; Translations: [Encounter for preprocedural laboratory examination] Onset: 01-12-20 Unclassified (1 source) Retention of urine, unspecified; [...] Problem Classification Problem Date Documented Date Episodic/Chronic Other aftercare (1 source) vermin exterminator (current) use of antibiotics Onset: 12-06-2021 Resolved: 12-06-2021 Episodic Other aftercare (1 source) vermin exterminator (current) use of insulin; Translations: [vermin exterminator (current) use of insulin] Onset: 11-14-2021 Episodic Other diseases of veins and lymphatics [...] Serum or PlasmaOrdered By: Mervat Santiago on 12-30-2023 ALT [Catalytic activity/Vol] 12 U/L 52 [facility] Albumin [Mass/volume] in Ser um or Plasma by Bromocresol green (BCG) dye binding methoOrdered By: Mervat Santiago on 12-30-2023 Albumin BCG dye [Mass/Vol] 4.2 g/dL 3.5-5.7 [facility] Alkaline phosphatase [Enzyma tic activity/volume] in Serum or PlasmaOrdered By: Mervat Santiago on 12-30-2023 ALP [Catalytic activity/Vol] 111 U/L High 34-104 [facility] Aspartate aminotransferase [ Enzymatic activity/volume] in Serum or PlasmaOrdered By: Mervat Santiago on 12-30-2023 AST [Catalytic activity/Vol] 22 U/L 13-39 [facility] Basophils Auto (Bld) [#/Vol] Ordered By: Mervat Santiago on 12-30-2023 Basophils (Bld) [#/Vol] 0.1 10*3/uL 0.0-0.2 [facility] Basophils/100 WBC Auto (Bld) Ordered By: Mervat Santiago on 12-30-2023 Basophils/100 WBC (Bld) 0.9 % . [facility] Bilirubin.total [Mass/volume ] in Serum or PlasmaOrdered By: Mervat Santiago on 12-30-2023 Bilirubin [Mass/Vol] 0.4 mg/dL 0.3-1.0 [facility] Calcium [Mass/volume] in Ser um or PlasmaOrdered By: Mervat Santiago on 12-30-2023 Calcium [Mass/Vol] 10.6 mg/dL High 8.6-10.3 [facility] Carbon dioxide, total [Moles /volume] in Serum or PlasmaOrdered By: Mervat Santiago on 12-30-2023 CO2 [Moles/Vol] 29.2 mmol/L 21.0-31.0 [facility] Chloride [Moles/volume] in S leti or PlasmaOrdered By: Mervat Santiago on 12-30-2023 Chloride [Moles/Vol] 90 mmol/L Low 98-107 [facility] Cholesterol [Mass/volume] in Serum or PlasmaOrdered By: Mervat Santiago on 12-30-2023 Cholesterol [Mass/Vol] 141 mg/dL 140-200 [facility] Comment on above: Chol less than 200 m g/dl low riskChol 201-239 mg/dl borderline riskChol 240 mg/dl and greater high risk Cholesterol in LDL Calc [Mas s/Vol]Ordered By: Mervat Santiago on 12-30-2023 Cholesterol in LDL [Mass/Vol] 38 mg/dL 0-100 [facility] Comment on above: LDL ATP III CLASSIFI CATIONLDL less than 100 mg/dL OptimalLDL 100-129 mg/dL Near or above optimalLDL 130-159 mg/dL Borderline highLDL 160-189 mg/dL HighLDL greater than 189 mg/dL Very high Cholesterol in VLDL Calc [Ma ss/Vol]Ordered By: Mervat Santiago on 12-30-2023 Cholesterol in VLDL [Mass/Vol] 47 mg/dL [facility] Creatinine [Mass/volume] in Serum or PlasmaOrdered By: Mervat Santiago on 12-30-2023 Creatinine [Mass/Vol] 6.14 mg/dL High 0.70-1.30 [facility] Eosinophils Auto (Bld) [#/Vo l]Ordered By: Mervat Santiago on 12-30-2023 Eosinophils (Bld) [#/Vol] 0.5 10*3/uL High 0.0-0.45 [facility] Eosinophils/100 WBC Auto (Bl d)Ordered By: Mervat Santiago on 12-30-2023 Eosinophils/100 WBC (Bld) 2.8 % . [facility] Erythrocyte distribution wid th Auto (RBC) [Ratio]Ordered By: Mervat Santiago on 12-30-2023 Erythrocyte distribution width (RBC) [Ratio] 16.9 % High 12.0-14.8 [facility] Globulin Calc (S) [Mass/Vol] Ordered By: Mervat Santiago on 12-30-2023 Globulin (S) [Mass/Vol] 5.1 g/dL [facility] Glucose [Mass/volume] in Ser um or PlasmaOrdered By: Mervat Santiago on 12-30-2023 Glucose [Mass/Vol] 169 mg/dL High 70-100 [facility] Comment on above: ADA recommended refe rence rangeRandom Glucose Reference Range is dependent on time and content of last meal. Glucose of more than 200 mg/dL in a nonstressed, ambulatory subject supports the diagnosis of Diabetes Mellitus. Hematocrit Auto (Bld) [Volum e fraction]Ordered By: Mervat Santiago on 12-30-2023 Hematocrit (Bld) [Volume fraction] 39.8 % 38.8-50.0 [facility] Hemoglobin [Mass/volume] in BloodOrdered By: Mervat Santiago on 12-30-2023 Hemoglobin (Bld) [Mass/Vol] 13.0 g/dL 13.0-17.0 [facility] Leukocytes [#/volume] correc lakesha for nucleated erythrocytes in Blood by Automated counOrdered By: Mervat Santiago on 12-30-2023 WBC corrected for nucl RBC Auto (Bld) [#/Vol] 16.3 10*3/uL High 4.1-10.5 [facility] Lymphocytes Auto (Bld) [#/Vo l]Ordered By: Mervat Santiago on 12-30-2023 Lymphocytes (Bld) [#/Vol] 5.2 10*3/uL High 1.00-4.8 [facility] Lymphocytes/100 WBC Auto (Bl d)Ordered By: Mervat Santiago on 12-30-2023 Lymphocytes/100 WBC (Bld) 31.7 % . [facility] MCH Auto (RBC) [Entitic mass ]Ordered By: Mervat Santiago on 12-30-2023 MCH (RBC) [Entitic mass] 32.3 pg 27.5-35.2 [facility] MCHC Auto (RBC) [Mass/Vol]Or dered By: Mervat Santiago on 12-30-2023 MCHC (RBC) [Mass/Vol] 32.5 g/dL 32.5-35.6 [facility] MCV Auto (RBC) [Entitic vol] Ordered By: Mervat Santiago on 12-30-2023 MCV (RBC) [Entitic vol] 99.1 fL 83.5-101 [facility] Monocytes Auto (Bld) [#/Vol] Ordered By: Mervat Snyderc on 12-30-2023 Monocytes (Bld) [#/Vol] 1.5 10*3/uL High 0.0-0.8 [facility] Monocytes/100 WBC Auto (Bld) Ordered By: Mervat Snyderc on 12-30-2023 Monocytes/100 WBC (Bld) 9.5 % . [facility] Neutrophils Auto (Bld) [#/Vo l]Ordered By: Mervat Santiago on 12-30-2023 Neutrophils (Bld) [#/Vol] 9.0 10*3/uL High 1.8-7.7 [facility] Neutrophils/100 WBC Auto (Bl d)Ordered By: Mervat Santiago on 12-30-2023 Neutrophils/100 WBC (Bld) 55.1 % . [facility] No Panel InformationOrdered By: Mervat Santiago on 12-30-2023 Estimated GFR (CKD-EPI) 9.004 mL/Min [facility] Creatinine Clearance (Chem N/A [facility] Nucleated erythrocytes [Pres ence] in Blood by Automated countOrdered By: Mervat Santiago on 12-30-2023 Nucleated RBC Auto Ql (Bld) 0.4 /100{WBC} 0-0.5 [facility] Platelet mean volume Auto (B ld) [Entitic vol]Ordered By: Mervat Santiago on 12-30-2023 Platelet mean volume (Bld) [Entitic vol] 8.8 fL 6.6-10.1 [facility] Platelets Auto (Bld) [#/Vol] Ordered By: Mervat Santiago on 12-30-2023 Platelets (Bld) [#/Vol] 236 10*3/uL 150-450 [facility] Potassium [Moles/volume] in Serum or PlasmaOrdered By: Mervat Santiago on 12-30-2023 Potassium [Moles/Vol] 3.9 mmol/L 3.5-5.1 [facility] Comment on above: Hemolysis is present at a level that could interfere with the result.Contact lab if redraw is required Protein [Mass/volume] in Ser um or PlasmaOrdered By: Mervat Santiago on 12-30-2023 Protein [Mass/Vol] 9.3 g/dL High 6.4-8.9 [facility] RBC Auto (Bld) [#/Vol]Ordere d By: Mervat Santiago on 12-30-2023 RBC (Bld) [#/Vol] 4.02 10*6/uL 3.90-5.60 [facility] Serum or plasma albumin/glob ulin mass ratioOrdered By: Mervat Santiago on 12-30-2023 Albumin/Globulin [Mass ratio] 0.8 {ratio} [facility] Serum or plasma anion gap de terminationOrdered By: Mervat Snatiago on 12-30-2023 Anion gap [Moles/Vol] 14.7 mmol/L 6.0-15.0 [facility] Serum or plasma high density lipoprotein (HDL) cholesterol measurementOrdered By: Mervat Santiago on 12-30-2023 Cholesterol in HDL [Mass/Vol] 55 mg/dL 23- [facility] Comment on above: HDL CHOL ATP-III CLA SSIFICATION Cardiovascular RiskHDL > or equal to 60 mg/dL LOWHDL < 40 mg/dL HIGH Serum or plasma total choles terol/high density lipoprotein (HDL) cholesterol mass ratOrdered By: Mervat Santiago on 12-30-2023 Cholesterol.total/Aleja sterol in HDL [Mass ratio] 2.6 {ratio} <5.0 [facility] Sodium [Moles/volume] in Ser um or PlasmaOrdered By: Mervat Santiago on 12-30-2023 Sodium [Moles/Vol] 130 mmol/L Low 136-145 [facility] Thyrotropin [Units/volume] i n Serum or PlasmaOrdered By: Mervat Santiago on 12-30-2023 TSH Qn 2.96 m[IU]/L 0.45-5.33 [facility] Triglyceride [Mass/volume] i n Serum or PlasmaOrdered By: Mervat Santiago on 12-30-2023 Triglyceride [Mass/Vol] 239 mg/dL High 0-149 [facility] Comment on above: TRIG ATP III CLASSIF ICATIONTRIG less than 150 mg/dL NormalTRIG 150-199 mg/dL Borderline highTRIG 200-500 mg/dL High TRIG greater than 500 mg/dL Very highStandard traceable to the Center for Disease Conrtrol and Prevention (CDC) test method. Urea nitrogen [Mass/volume] in Serum or PlasmaOrdered By: Mervat Santiago on 12-30-2023 Urea nitrogen [Mass/Vol] 27 mg/dL High 7-25 [facility] Vitamin D+Metabolites [Mass/ volume] in Serum or PlasmaOrdered By: Mervat Santiago on 12-30-2023 Vitamin D+Metabolites [Mass/Vol] 42.7 ng/mL 30-100 [facility] Comment on above: Hemolysis is present at a level that could interfere with the result.Contact lab if redraw is requiredVITAMIN D STATUS 25(OH)VITAMIN D RANGE (ng/mL) Deficient <20 Insufficient 20 to <30Sufficient 30 to 100Reference: Waylon MF,Xavier SUMNER, [place] RIOS, et al. Evaluation,treatment, and prevention of vitamin D deficiency; an Endocrine Society clinical practice guideline. JCEM. 2010; 96(7):1911-30. WBC Auto (Bld) [#/Vol]Ordere d By: Mervat Santiago on 12-30-2023 WBC (Bld) [#/Vol] 16.3 10*3/uL High 4.1-10.5 [facility] Potassium [Moles/volume] in Serum or PlasmaOrdered By: Olga Lidia Martin on 12-26-2023 Potassium [Moles/Vol] 3.3 mmol/L Low 3.5-5.1 [facility] Potassium [Moles/volume] in Serum or PlasmaOrdered By: Yisel Andrade on 11-07-2023 Potassium [Moles/Vol] 4.4 mmol/L 3.5-5.1 [facility] Potassium [Moles/volume] in Serum or PlasmaOrdered By: Olga Lidia Martin on 08-08-2023 Potassium [Moles/Vol] 3.2 mmol/L Low 3.5-5.1 [facility] Alanine aminotransferase [En zymatic activity/volume] in Serum or PlasmaOrdered By: Jose M Landry on 07-15-2023 ALT [Catalytic activity/Vol] 17 U/L 7-52 [facility] Albumin [Mass/volume] in Ser um or Plasma by Bromocresol green (BCG) dye binding methoOrdered By: Jose M Landry on 07-15-2023 Albumin BCG dye [Mass/Vol] 3.3 g/dL 3.5-5.7 [facility] Alkaline phosphatase [Enzyma tic activity/volume] in Serum or PlasmaOrdered By: Jose M Landry on 07-15-2023 ALP [Catalytic activity/Vol] 118 U/L 34-104 [facility] Aspartate aminotransferase [ Enzymatic activity/volume] in Serum or PlasmaOrdered By: Jose M Landry on 07-15-2023 AST [Catalytic activity/Vol] 23 U/L 13-39 [facility] Basophils Auto (Bld) [#/Vol] Ordered By: Jose M Landry on 07-15-2023 Basophils (Bld) [#/Vol] 0.1 10*3/uL 0.0-0.2 [facility] Basophils/100 WBC Auto (Bld) Ordered By: Jose M Landry on 07-15-2023 Basophils/100 WBC (Bld) 0.7 % . [facility] Bilirubin.total [Mass/volume ] in Serum or PlasmaOrdered By: Jose M Landry on 07-15-2023 Bilirubin [Mass/Vol] 0.2 mg/dL 0.3-1.0 [facility] Calcium [Mass/volume] in Ser um or PlasmaOrdered By: Jose M Landry on 07-15-2023 Calcium [Mass/Vol] 7.3 mg/dL 8.6-10.3 [facility] Carbon dioxide, total [Moles /volume] in Serum or PlasmaOrdered By: Jose M Landry on 07-15-2023 CO2 [Moles/Vol] 21.2 mmol/L 21.0-31.0 [facility] Chloride [Moles/volume] in S leti or PlasmaOrdered By: Jose M Landry on 07-15-2023 Chloride [Moles/Vol] 109 mmol/L 98-107 [facility] Creatinine [Mass/volume] in Serum or PlasmaOrdered By: Jose M Landry on 07-15-2023 Creatinine [Mass/Vol] 7.02 mg/dL 0.70-1.30 [facility] Diagnostic impression [Inter pretation] in Specimen NarrativeOrdered By: Olga Lidia Martin on 07-15-2023 Diagnostic impression Molgen John (Unsp spec) [Interp] See comment . [facility] Comment on above: Positive HCV antibod y screen without the presence of HCVRNA is consistent with a resolved past infection or a falsepositive HCV antibody. Consider repeat testing after onemonth.Performed at: - [facility] [id number] Director: Colton Lane PhD, Phone: [phone] at: [facility] [id number] Director: Fabienne Harmon MD, Phone: [phone] Eosinophils Auto (Bld) [#/Vo l]Ordered By: Jose M Landry on 07-15-2023 Eosinophils (Bld) [#/Vol] 0.5 10*3/uL 0.0-0.45 [facility] Eosinophils/100 WBC Auto (Bl d)Ordered By: Jose M Landry on 07-15-2023 Eosinophils/100 WBC (Bld) 4.8 % . [facility] Erythrocyte distribution wid th Auto (RBC) [Ratio]Ordered By: Jose M Landry on 07-15-2023 Erythrocyte distribution width (RBC) [Ratio] 17.1 % 12.0-14.8 [facility] Ferritin [Mass/volume] in Se rum or PlasmaOrdered By: Maddie Dixon on 07-15-2023 Ferritin [Mass/Vol] 31.1 ng/mL 23.9-336.2 [facility] Globulin Calc (S) [Mass/Vol] Ordered By: Jose M Landry on 07-15-2023 Globulin (S) [Mass/Vol] 3.6 g/dL [facility] Glucose [Mass/volume] in Ser um or PlasmaOrdered By: Jose M Landry on 07-15-2023 Glucose [Mass/Vol] 67 mg/dL 70-100 [facility] Comment on above: ADA recommended refe rence rangeRandom Glucose Reference Range is dependent on time and content of last meal. Glucose of more than 200 mg/dL in a nonstressed, ambulatory subject supports the diagnosis of Diabetes Mellitus. Hematocrit Auto (Bld) [Volum e fraction]Ordered By: Jose M Landry on 07-15-2023 Hematocrit (Bld) [Volume fraction] 30.7 % 38.8-50.0 [facility] Hemoglobin [Mass/volume] in BloodOrdered By: Jose M Landry on 07-15-2023 Hemoglobin (Bld) [Mass/Vol] 9.4 g/dL 13.0-17.0 [facility] Hepatitis B virus surface Ab [Presence] in SerumOrdered By: Olga Lidia Martin on 07-15-2023 HBV surface Ab Ql (S) Non-Reactive . [facility] Comment on above: Non Reactive: Incons istent with immunity, less than 10 mIU/mL Reactive: Consistent with immunity, greater than 9.9 mIU/mLPerformed at: [place] [id number] Director: Colton Lane PhD, Phone: [phone] Hepatitis B virus surface Ag [Presence] in Serum or Plasma by ImmunoassayOrdered By: Olga Lidia Martin on 07-15-2023 HBV surface Ag IA Ql Negative Negative [facility] Hepatitis C virus IgG Ab [Pr esence] in Serum or Plasma by ImmunoassayOrdered By: Olga Lidia Martin on 07-15-2023 HCV IgG IA Ql Reactive Non Reactive [facility] Hepatitis C virus RNA [Units /volume] (viral load) in Serum or Plasma by JAYMIE with probOrdered By: Olga Lidia Martin on 07-15-2023 HCV RNA JAYMIE+probe Qn N/A [facility] Hepatitis C virus RNA [log u nits/volume] (viral load) in Serum or Plasma by JAYMIE withOrdered By: Olga Lidia Martin on 07-15-2023 HCV RNA JAYMIE+probe [Log units/Vol] Not detected . [facility] HCV RNA JAYMIE+probe [Log units/Vol] N/A [facility] Iron [Mass/volume] in Serum or PlasmaOrdered By: Maddie Dixon on 07-15-2023 Iron [Mass/Vol] 149 ug/dL 50-212 [facility] Iron binding capacity [Mass/ volume] in Serum or PlasmaOrdered By: Maddie Dixon on 07-15-2023 Iron binding capacity [Mass/Vol] 276 ug/dL 255-450 [facility] Iron saturation [Mass Fracti on] in Serum or PlasmaOrdered By: Maddie Destiny on 07-15-2023 Iron saturation [Mass fraction] 54.0 % 20-50 [facility] Leukocytes [#/volume] correc lakesha for nucleated erythrocytes in Blood by Automated counOrdered By: Jose M Landry on 07-15-2023 WBC corrected for nucl RBC Auto (Bld) [#/Vol] 9.7 10*3/uL 4.1-10.5 [facility] Lymphocytes Auto (Bld) [#/Vo l]Ordered By: Jose M Landry on 07-15-2023 Lymphocytes (Bld) [#/Vol] 3.7 10*3/uL 1.00-4.8 [facility] Lymphocytes/100 WBC Auto (Bl d)Ordered By: Jose M Landry on 07-15-2023 Lymphocytes/100 WBC (Bld) 38.5 % . [facility] MCH Auto (RBC) [Entitic mass ]Ordered By: Jose M Landry on 07-15-2023 MCH (RBC) [Entitic mass] 30.2 pg 27.5-35.2 [facility] MCHC Auto (RBC) [Mass/Vol]Or dered By: Jose M Landry on 07-15-2023 MCHC (RBC) [Mass/Vol] 30.7 g/dL 32.5-35.6 [facility] MCV Auto (RBC) [Entitic vol] Ordered By: Jose M Landry on 07-15-2023 MCV (RBC) [Entitic vol] 98.4 fL 83.5-101 [facility] Monocytes Auto (Bld) [#/Vol] Ordered By: Jose M Landry on 07-15-2023 Monocytes (Bld) [#/Vol] 0.9 10*3/uL 0.0-0.8 [facility] Monocytes/100 WBC Auto (Bld) Ordered By: Jose M Landry on 07-15-2023 Monocytes/100 WBC (Bld) 9.4 % . [facility] Neutrophils Auto (Bld) [#/Vo l]Ordered By: Jose M Landry on 07-15-2023 Neutrophils (Bld) [#/Vol] 4.5 10*3/uL 1.8-7.7 [facility] Neutrophils/100 WBC Auto (Bl d)Ordered By: Jose M Landry on 07-15-2023 Neutrophils/100 WBC (Bld) 46.6 % . [facility] No Panel InformationOrdered By: Jose M Landry on 07-15-2023 Estimated GFR (CKD-EPI) 7.666 mL/Min [facility] Creatinine Clearance (Chem N/A [facility] 7.666 mL/Min [facility] N/A [facility] No Panel InformationOrdered By: Olga Lidia Martin on 07-15-2023 Hepatitis A IgM Antibody Negative Negative [facility] Hepatitis B Core IgM Antibody Negative Negative [facility] Hepatitis C RNA Qnt (PCR) Test Info See comment . [facility] Comment on above: The quantitative ran ge of this assay is 15 IU/mL to 100million IU/mL. Negative Negative [facility] See comment . [facility] Nucleated erythrocytes [Pres ence] in Blood by Automated countOrdered By: Jose M Landry on 07-15-2023 Nucleated RBC Auto Ql (Bld) 0.4 /100{WBC} 0-0.5 [facility] Platelet mean volume Auto (B ld) [Entitic vol]Ordered By: Jose M Landry on 07-15-2023 Platelet mean volume (Bld) [Entitic vol] 10.9 fL 6.6-10.1 [facility] Platelets Auto (Bld) [#/Vol] Ordered By: Jose M Landry on 07-15-2023 Platelets (Bld) [#/Vol] 193 10*3/uL 150-450 [facility] Potassium [Moles/volume] in Serum or PlasmaOrdered By: Jose M Landry on 07-15-2023 Potassium [Moles/Vol] 5.4 mmol/L 3.5-5.1 [facility] Protein [Mass/volume] in Ser um or PlasmaOrdered By: Jose M Landry on 07-15-2023 Protein [Mass/Vol] 6.9 g/dL 6.4-8.9 [facility] RBC Auto (Bld) [#/Vol]Ordere d By: Jose M Landry on 07-15-2023 RBC (Bld) [#/Vol] 3.12 10*6/uL 3.90-5.60 [facility] Serum or plasma albumin/glob ulin mass ratioOrdered By: Jose M Landry on 07-15-2023 Albumin/Globulin [Mass ratio] 0.9 {ratio} [facility] Serum or plasma anion gap de terminationOrdered By: Jose M Landry on 07-15-2023 Anion gap [Moles/Vol] 14.2 mmol/L 6.0-15.0 [facility] Sodium [Moles/volume] in Ser um or PlasmaOrdered By: Jose M Landry on 07-15-2023 Sodium [Moles/Vol] 139 mmol/L 136-145 [facility] Transferrin [Mass/volume] in Serum or PlasmaOrdered By: Maddie Dixon on 07-15-2023 Transferrin [Mass/Vol] 197 mg/dL 203-362 [facility] Urea nitrogen [Mass/volume] in Serum or PlasmaOrdered By: Jose M Landry on 07-15-2023 Urea nitrogen [Mass/Vol] 50 mg/dL 7-25 [facility] WBC Auto (Bld) [#/Vol]Ordere d By: Jose M Landry on 07-15-2023 WBC (Bld) [#/Vol] 9.7 10*3/uL 4.1-10.5 [facility] Alanine aminotransferase [En zymatic activity/volume] in Serum or PlasmaOrdered By: Jose M Landry on 07-03-2023 ALT [Catalytic activity/Vol] 13 U/L 7-52 [facility] Albumin [Mass/volume] in Ser um or Plasma by Bromocresol green (BCG) dye binding methoOrdered By: Jose M Landry on 07-03-2023 Albumin BCG dye [Mass/Vol] 3.5 g/dL 3.5-5.7 [facility] Alkaline phosphatase [Enzyma tic activity/volume] in Serum or PlasmaOrdered By: Jose M Landry on 07-03-2023 ALP [Catalytic activity/Vol] 124 U/L 34-104 [facility] Aspartate aminotransferase [ Enzymatic activity/volume] in Serum or PlasmaOrdered By: Jose M Landry on 07-03-2023 AST [Catalytic activity/Vol] 17 U/L 13-39 [facility] Basophils Auto (Bld) [#/Vol] Ordered By: Jose M Landry on 07-03-2023 Basophils (Bld) [#/Vol] 0.1 10*3/uL 0.0-0.2 [facility] Basophils/100 WBC Auto (Bld) Ordered By: Jose M Lnadry on 07-03-2023 Basophils/100 WBC (Bld) 0.5 % . [facility] Bilirubin.total [Mass/volume ] in Serum or PlasmaOrdered By: Jose M Landry on 07-03-2023 Bilirubin [Mass/Vol] 0.2 mg/dL 0.3-1.0 [facility] Calcium [Mass/volume] in Ser um or PlasmaOrdered By: Jose M Landry on 07-03-2023 Calcium [Mass/Vol] 7.5 mg/dL 8.6-10.3 [facility] Carbon dioxide, total [Moles /volume] in Serum or PlasmaOrdered By: Jose M Landry on 07-03-2023 CO2 [Moles/Vol] 22.5 mmol/L 21.0-31.0 [facility] Chloride [Moles/volume] in S leti or PlasmaOrdered By: Jose M Landry on 07-03-2023 Chloride [Moles/Vol] 110 mmol/L 98-107 [facility] Creatinine [Mass/volume] in Serum or PlasmaOrdered By: Jose M Landry on 07-03-2023 Creatinine [Mass/Vol] 7.45 mg/dL 0.70-1.30 [facility] Eosinophils Auto (Bld) [#/Vo l]Ordered By: Jose M Landry on 07-03-2023 Eosinophils (Bld) [#/Vol] 0.5 10*3/uL 0.0-0.45 [facility] Eosinophils/100 WBC Auto (Bl d)Ordered By: Jose M Landry on 07-03-2023 Eosinophils/100 WBC (Bld) 5.2 % . [facility] Erythrocyte distribution wid th Auto (RBC) [Ratio]Ordered By: Jose M Landry on 07-03-2023 Erythrocyte distribution width (RBC) [Ratio] 17.1 % 12.0-14.8 [facility] Globulin Calc (S) [Mass/Vol] Ordered By: Jose M Landry on 07-03-2023 Globulin (S) [Mass/Vol] 4.1 g/dL [facility] Glucose [Mass/volume] in Ser um or PlasmaOrdered By: Jose M Landry on 07-03-2023 Glucose [Mass/Vol] 119 mg/dL 70-100 [facility] Comment on above: ADA recommended refe rence rangeRandom Glucose Reference Range is dependent on time and content of last meal. Glucose of more than 200 mg/dL in a nonstressed, ambulatory subject supports the diagnosis of Diabetes Mellitus. Hematocrit Auto (Bld) [Volum e fraction]Ordered By: Jose M Landry on 07-03-2023 Hematocrit (Bld) [Volume fraction] 28.4 % 38.8-50.0 [facility] Hemoglobin [Mass/volume] in BloodOrdered By: Jose M Landry on 07-03-2023 Hemoglobin (Bld) [Mass/Vol] 9.0 g/dL 13.0-17.0 [facility] Leukocytes [#/volume] correc lakesha for nucleated erythrocytes in Blood by Automated counOrdered By: Jose M Landry on 07-03-2023 WBC corrected for nucl RBC Auto (Bld) [#/Vol] 10.5 10*3/uL 4.1-10.5 [facility] Lymphocytes Auto (Bld) [#/Vo l]Ordered By: Jose M Landry on 07-03-2023 Lymphocytes (Bld) [#/Vol] 3.9 10*3/uL 1.00-4.8 [facility] Lymphocytes/100 WBC Auto (Bl d)Ordered By: Jose M Landry on 07-03-2023 Lymphocytes/100 WBC (Bld) 36.9 % . [facility] MCH Auto (RBC) [Entitic mass ]Ordered By: Jose M Landry on 07-03-2023 MCH (RBC) [Entitic mass] 30.9 pg 27.5-35.2 [facility] MCHC Auto (RBC) [Mass/Vol]Or dered By: Jose M Landry on 07-03-2023 MCHC (RBC) [Mass/Vol] 31.6 g/dL 32.5-35.6 [facility] MCV Auto (RBC) [Entitic vol] Ordered By: Jose M Landry on 07-03-2023 MCV (RBC) [Entitic vol] 97.8 fL 83.5-101 [facility] Monocytes Auto (Bld) [#/Vol] Ordered By: Jose M Landry on 07-03-2023 Monocytes (Bld) [#/Vol] 1.1 10*3/uL 0.0-0.8 [facility] Monocytes/100 WBC Auto (Bld) Ordered By: Jose M Landry on 07-03-2023 Monocytes/100 WBC (Bld) 10.3 % . [facility] Neutrophils Auto (Bld) [#/Vo l]Ordered By: Jose M Landry on 07-03-2023 Neutrophils (Bld) [#/Vol] 4.9 10*3/uL 1.8-7.7 [facility] Neutrophils/100 WBC Auto (Bl d)Ordered By: Jose M Landry on 07-03-2023 Neutrophils/100 WBC (Bld) 47.1 % . [facility] No Panel InformationOrdered By: Jose M Landry on 07-03-2023 Estimated GFR (CKD-EPI) 7.139 mL/Min [facility] Creatinine Clearance (Chem 11.60 [facility] 7.139 mL/Min [facility] 11.60 [facility] Nucleated erythrocytes [Pres ence] in Blood by Automated countOrdered By: Jose M Landry on 07-03-2023 Nucleated RBC Auto Ql (Bld) 0.4 /100{WBC} 0-0.5 [facility] Platelet mean volume Auto (B ld) [Entitic vol]Ordered By: Jose M Landry on 07-03-2023 Platelet mean volume (Bld) [Entitic vol] 10.0 fL 6.6-10.1 [facility] Platelets Auto (Bld) [#/Vol] Ordered By: Jsoe M Landry on 07-03-2023 Platelets (Bld) [#/Vol] 216 10*3/uL 150-450 [facility] Potassium [Moles/volume] in Serum or PlasmaOrdered By: Jose M Landry on 07-03-2023 Potassium [Moles/Vol] 5.2 mmol/L 3.5-5.1 [facility] Protein [Mass/volume] in Ser um or PlasmaOrdered By: Jose M Landry on 07-03-2023 Protein [Mass/Vol] 7.6 g/dL 6.4-8.9 [facility] RBC Auto (Bld) [#/Vol]Ordere d By: Jose M Landry on 07-03-2023 RBC (Bld) [#/Vol] 2.90 10*6/uL 3.90-5.60 [facility] Serum or plasma albumin/glob ulin mass ratioOrdered By: Jose M Landry on 07-03-2023 Albumin/Globulin [Mass ratio] 0.9 {ratio} [facility] Serum or plasma anion gap de terminationOrdered By: Jose M Landry on 07-03-2023 Anion gap [Moles/Vol] 12.7 mmol/L 6.0-15.0 [facility] Sodium [Moles/volume] in Ser um or PlasmaOrdered By: Jose M Landry on 07-03-2023 Sodium [Moles/Vol] 140 mmol/L 136-145 [facility] Urea nitrogen [Mass/volume] in Serum or PlasmaOrdered By: Jose M Landry on 07-03-2023 Urea nitrogen [Mass/Vol] 55 mg/dL 7-25 [facility] WBC Auto (Bld) [#/Vol]Ordere d By: Jose M Landry on 07-03-2023 WBC (Bld) [#/Vol] 10.5 10*3/uL 4.1-10.5 [facility] Alanine aminotransferase [En zymatic activity/volume] in Serum or PlasmaOrdered By: Jose M Landry on 06-19-2023 ALT [Catalytic activity/Vol] 10 U/L 7-52 [facility] Albumin [Mass/volume] in Ser um or Plasma by Bromocresol green (BCG) dye binding methoOrdered By: Jose M Landry on 06-19-2023 Albumin BCG dye [Mass/Vol] 3.3 g/dL 3.5-5.7 [facility] Alkaline phosphatase [Enzyma tic activity/volume] in Serum or PlasmaOrdered By: Jose M Landry on 06-19-2023 ALP [Catalytic activity/Vol] 101 U/L 34-104 [facility] Aspartate aminotransferase [ Enzymatic activity/volume] in Serum or PlasmaOrdered By: Jose M Landry on 06-19-2023 AST [Catalytic activity/Vol] 17 U/L 13-39 [facility] Basophils Auto (Bld) [#/Vol] Ordered By: Jose M Landry on 06-19-2023 Basophils (Bld) [#/Vol] 0.1 10*3/uL 0.0-0.2 [facility] Basophils/100 WBC Auto (Bld) Ordered By: Jose M Landry on 06-19-2023 Basophils/100 WBC (Bld) 0.8 % . [facility] Bilirubin.total [Mass/volume ] in Serum or PlasmaOrdered By: Jose M Landry on 06-19-2023 Bilirubin [Mass/Vol] 0.2 mg/dL 0.3-1.0 [facility] Calcium [Mass/volume] in Ser um or PlasmaOrdered By: Jose M Landry on 06-19-2023 Calcium [Mass/Vol] 7.0 mg/dL 8.6-10.3 [facility] Carbon dioxide, total [Moles /volume] in Serum or PlasmaOrdered By: Jose M Landry on 06-19-2023 CO2 [Moles/Vol] 23.6 mmol/L 21.0-31.0 [facility] Chloride [Moles/volume] in S leti or PlasmaOrdered By: Jose M Landry on 06-19-2023 Chloride [Moles/Vol] 106 mmol/L 98-107 [facility] Cholesterol [Mass/volume] in Serum or PlasmaOrdered By: Mervat Santiago on 06-19-2023 Cholesterol [Mass/Vol] 99 mg/dL 140-200 [facility] Comment on above: Chol less than 200 m g/dl low riskChol 201-239 mg/dl borderline riskChol 240 mg/dl and greater high risk Cholesterol in LDL Calc [Mas s/Vol]Ordered By: Mervat Santiago on 06-19-2023 Cholesterol in LDL [Mass/Vol] 32 mg/dL 0-100 [facility] Comment on above: LDL ATP III CLASSIFI CATIONLDL less than 100 mg/dL OptimalLDL 100-129 mg/dL Near or above optimalLDL 130-159 mg/dL Borderline highLDL 160-189 mg/dL HighLDL greater than 189 mg/dL Very high Cholesterol in VLDL Calc [Ma ss/Vol]Ordered By: Mervat Santiago on 06-19-2023 Cholesterol in VLDL [Mass/Vol] 14 mg/dL [facility] Creatinine [Mass/volume] in Serum or PlasmaOrdered By: Jose M Landry on 06-19-2023 Creatinine [Mass/Vol] 6.85 mg/dL 0.70-1.30 [facility] Eosinophils Auto (Bld) [#/Vo l]Ordered By: Jose M Landry on 06-19-2023 Eosinophils (Bld) [#/Vol] 0.3 10*3/uL 0.0-0.45 [facility] Eosinophils/100 WBC Auto (Bl d)Ordered By: Jose M Landry on 06-19-2023 Eosinophils/100 WBC (Bld) 3.6 % . [facility] Erythrocyte distribution wid th Auto (RBC) [Ratio]Ordered By: Jose M Landry on 06-19-2023 Erythrocyte distribution width (RBC) [Ratio] 17.1 % 12.0-14.8 [facility] Globulin Calc (S) [Mass/Vol] Ordered By: Jose M Landry on 06-19-2023 Globulin (S) [Mass/Vol] 4.4 g/dL [facility] Glucose [Mass/volume] in Ser um or PlasmaOrdered By: Jose M Landry on 06-19-2023 Glucose [Mass/Vol] 124 mg/dL 70-100 [facility] Comment on above: ADA recommended refe rence rangeRandom Glucose Reference Range is dependent on time and content of last meal. Glucose of more than 200 mg/dL in a nonstressed, ambulatory subject supports the diagnosis of Diabetes Mellitus. Hematocrit Auto (Bld) [Volum e fraction]Ordered By: Jose M Landry on 06-19-2023 Hematocrit (Bld) [Volume fraction] 29.3 % 38.8-50.0 [facility] Hemoglobin [Mass/volume] in BloodOrdered By: Jose M Landry on 06-19-2023 Hemoglobin (Bld) [Mass/Vol] 9.2 g/dL 13.0-17.0 [facility] Leukocytes [#/volume] correc lakesha for nucleated erythrocytes in Blood by Automated counOrdered By: Jose M Landry on 06-19-2023 WBC corrected for nucl RBC Auto (Bld) [#/Vol] 9.3 10*3/uL 4.1-10.5 [facility] Lymphocytes Auto (Bld) [#/Vo l]Ordered By: Jose M Landry on 06-19-2023 Lymphocytes (Bld) [#/Vol] 4.1 10*3/uL 1.00-4.8 [facility] Lymphocytes/100 WBC Auto (Bl d)Ordered By: Jose M Landry on 06-19-2023 Lymphocytes/100 WBC (Bld) 44.4 % . [facility] MCH Auto (RBC) [Entitic mass ]Ordered By: Jose M Landry on 06-19-2023 MCH (RBC) [Entitic mass] 31.1 pg 27.5-35.2 [facility] MCHC Auto (RBC) [Mass/Vol]Or dered By: Jose M Landry on 06-19-2023 MCHC (RBC) [Mass/Vol] 31.4 g/dL 32.5-35.6 [facility] MCV Auto (RBC) [Entitic vol] Ordered By: Jose M Landry on 06-19-2023 MCV (RBC) [Entitic vol] 99.0 fL 83.5-101 [facility] Monocytes Auto (Bld) [#/Vol] Ordered By: Jose M Landry on 06-19-2023 Monocytes (Bld) [#/Vol] 0.8 10*3/uL 0.0-0.8 [facility] Monocytes/100 WBC Auto (Bld) Ordered By: Jose M Landry on 06-19-2023 Monocytes/100 WBC (Bld) 8.1 % . [facility] Neutrophils Auto (Bld) [#/Vo l]Ordered By: Jose M Landry on 06-19-2023 Neutrophils (Bld) [#/Vol] 4.0 10*3/uL 1.8-7.7 [facility] Neutrophils/100 WBC Auto (Bl d)Ordered By: Jose M Landry on 06-19-2023 Neutrophils/100 WBC (Bld) 43.1 % . [facility] No Panel InformationOrdered By: Jose M Landry on 06-19-2023 Estimated GFR (CKD-EPI) 7.895 mL/Min [facility] Creatinine Clearance (Chem N/A [facility] 7.895 mL/Min [facility] N/A [facility] Nucleated erythrocytes [Pres ence] in Blood by Automated countOrdered By: Jose M Landry on 06-19-2023 Nucleated RBC Auto Ql (Bld) 0.7 /100{WBC} 0-0.5 [facility] Platelet mean volume Auto (B ld) [Entitic vol]Ordered By: Jose M Landry on 06-19-2023 Platelet mean volume (Bld) [Entitic vol] 10.9 fL 6.6-10.1 [facility] Platelets Auto (Bld) [#/Vol] Ordered By: Jose M Landry on 06-19-2023 Platelets (Bld) [#/Vol] 212 10*3/uL 150-450 [facility] Potassium [Moles/volume] in Serum or PlasmaOrdered By: Jose M Landry on 06-19-2023 Potassium [Moles/Vol] 4.9 mmol/L 3.5-5.1 [facility] Prostate specific Ag [Mass/v olume] in Serum or PlasmaOrdered By: Mervat Santiago on 06-19-2023 Prostate specific Ag [Mass/Vol] 0.400 ng/mL 0.000-4.000 [facility] Comment on above: Serial tumor marker results determined by assays using different manufacturers or methods may not be comparable.[facility] candle molder hand and method:BroadlinkEL DXI, CHEMILUMINESCENT IMMUNOASSAY. Protein [Mass/volume] in Ser um or PlasmaOrdered By: Jose M Landry on 06-19-2023 Protein [Mass/Vol] 7.7 g/dL 6.4-8.9 [facility] RBC Auto (Bld) [#/Vol]Ordere d By: Jose M Landry on 06-19-2023 RBC (Bld) [#/Vol] 2.96 10*6/uL 3.90-5.60 [facility] Serum or plasma albumin/glob ulin mass ratioOrdered By: Jose M Landry on 06-19-2023 Albumin/Globulin [Mass ratio] 0.8 {ratio} [facility] Serum or plasma anion gap de terminationOrdered By: oJse M Landry on 06-19-2023 Anion gap [Moles/Vol] 15.3 mmol/L 6.0-15.0 [facility] Serum or plasma high density lipoprotein (HDL) cholesterol measurementOrdered By: Mervat Santiago on 06-19-2023 Cholesterol in HDL [Mass/Vol] 52 mg/dL 23-92 [facility] Comment on above: HDL CHOL ATP-III CLA SSIFICATION Cardiovascular RiskHDL > or equal to 60 mg/dL LOWHDL < 40 mg/dL HIGH Serum or plasma total choles terol/high density lipoprotein (HDL) cholesterol mass ratOrdered By: Mervat Santiago on 06-19-2023 Cholesterol.total/Aleja sterol in HDL [Mass ratio] 1.9 {ratio} <5.0 [facility] Sodium [Moles/volume] in Ser um or PlasmaOrdered By: Jose M Landry on 06-19-2023 Sodium [Moles/Vol] 140 mmol/L 136-145 [facility] Thyrotropin [Units/volume] i n Serum or PlasmaOrdered By: Mervat Santiago on 06-19-2023 TSH Qn 4.98 m[IU]/L 0.45-5.33 [facility] Triglyceride [Mass/volume] i n Serum or PlasmaOrdered By: Mervat Santiago on 06-19-2023 Triglyceride [Mass/Vol] 73 mg/dL 0-149 [facility] Comment on above: TRIG ATP III CLASSIF ICATIONTRIG less than 150 mg/dL NormalTRIG 150-199 mg/dL Borderline highTRIG 200-500 mg/dL High TRIG greater than 500 mg/dL Very highStandard traceable to the Center for Disease Conrtrol and Prevention (CDC) test method. Urea nitrogen [Mass/volume] in Serum or PlasmaOrdered By: Jose M Landry on 06-19-2023 Urea nitrogen [Mass/Vol] 51 mg/dL 7-25 [facility] Vitamin D+Metabolites [Mass/ volume] in Serum or PlasmaOrdered By: Mervat Santiago on 06-19-2023 Vitamin D+Metabolites [Mass/Vol] 30.2 ng/mL 30-100 [facility] Comment on above: VITAMIN D STATUS 25( [place])VITAMIN D RANGE (ng/mL) Deficient <20 Insufficient 20 to <30Sufficient 30 to 100Reference: Waylon MF,Xavier NC, [place] RIOS, et al. Evaluation,treatment, and prevention of vitamin D deficiency; an Endocrine Society clinical practice guideline. JCEM. 2010; 96(7):1911-30. WBC Auto (Bld) [#/Vol]Ordere d By: Jose M Landry on 06-19-2023 WBC (Bld) [#/Vol] 9.3 10*3/uL 4.1-10.5 [facility] Alanine aminotransferase [En zymatic activity/volume] in Serum or PlasmaOrdered By: Jose M Landry on 06-05-2023 ALT [Catalytic activity/Vol] 16 U/L 7-52 [facility] Albumin [Mass/volume] in Ser um or Plasma by Bromocresol green (BCG) dye binding methoOrdered By: Jose M Landry on 06-05-2023 Albumin BCG dye [Mass/Vol] 3.6 g/dL 3.5-5.7 [facility] Alkaline phosphatase [Enzyma tic activity/volume] in Serum or PlasmaOrdered By: Jose M Landry on 06-05-2023 ALP [Catalytic activity/Vol] 121 U/L 34-104 [facility] Anisocytosis LM Ql (Bld)Orde red By: Jose M Landry on 06-05-2023 Anisocytosis Ql (Bld) Moderate [facility] Aspartate aminotransferase [ Enzymatic activity/volume] in Serum or PlasmaOrdered By: Jose M Landry on 06-05-2023 AST [Catalytic activity/Vol] 19 U/L 13-39 [facility] Basophils Auto (Bld) [#/Vol] Ordered By: Jose M Landry on 06-05-2023 Basophils (Bld) [#/Vol] 0.1 10*3/uL 0.0-0.2 [facility] Basophils/100 WBC Auto (Bld) Ordered By: Jose M Landry on 06-05-2023 Basophils/100 WBC (Bld) 0.9 % . [facility] Bilirubin.total [Mass/volume ] in Serum or PlasmaOrdered By: Jose M Landry on 06-05-2023 Bilirubin [Mass/Vol] 0.2 mg/dL 0.3-1.0 [facility] Blood toxic granulation dete ction by light microscopyOrdered By: Jose M Landry on 06-05-2023 Toxic granules LM Ql (Bld) Slight [facility] Calcium [Mass/volume] in Ser um or PlasmaOrdered By: Jose M Landry on 06-05-2023 Calcium [Mass/Vol] 7.6 mg/dL 8.6-10.3 [facility] Carbon dioxide, total [Moles /volume] in Serum or PlasmaOrdered By: Jose M Landry on 06-05-2023 CO2 [Moles/Vol] 20.5 mmol/L 21.0-31.0 [facility] Chloride [Moles/volume] in S leti or PlasmaOrdered By: Jose M Landry on 06-05-2023 Chloride [Moles/Vol] 110 mmol/L 98-107 [facility] Creatinine [Mass/volume] in Serum or PlasmaOrdered By: Jose M Landry on 06-05-2023 Creatinine [Mass/Vol] 5.86 mg/dL 0.70-1.30 [facility] Eosinophils Auto (Bld) [#/Vo l]Ordered By: Jose M Landry on 06-05-2023 Eosinophils (Bld) [#/Vol] 0.4 10*3/uL 0.0-0.45 [facility] Eosinophils/100 WBC Auto (Bl d)Ordered By: Jose M Landry on 06-05-2023 Eosinophils/100 WBC (Bld) 3.3 % . [facility] Erythrocyte distribution wid th Auto (RBC) [Ratio]Ordered By: Jose M Landry on 06-05-2023 Erythrocyte distribution width (RBC) [Ratio] 17.9 % 12.0-14.8 [facility] Globulin Calc (S) [Mass/Vol] Ordered By: Jose M Landry on 06-05-2023 Globulin (S) [Mass/Vol] 4.5 g/dL [facility] Glucose [Mass/volume] in Ser um or PlasmaOrdered By: Jose M Landry on 06-05-2023 Glucose [Mass/Vol] 99 mg/dL 70-100 [facility] Hematocrit Auto (Bld) [Volum e fraction]Ordered By: Jose M Landry on 06-05-2023 Hematocrit (Bld) [Volume fraction] 29.3 % 38.8-50.0 [facility] Hemoglobin [Mass/volume] in BloodOrdered By: Jose M Landry on 06-05-2023 Hemoglobin (Bld) [Mass/Vol] 9.3 g/dL 13.0-17.0 [facility] Leukocytes [#/volume] correc lakesha for nucleated erythrocytes in Blood by Automated counOrdered By: Jose M Landry on 06-05-2023 WBC corrected for nucl RBC Auto (Bld) [#/Vol] 11.5 10*3/uL 4.1-10.5 [facility] Lymphocytes Auto (Bld) [#/Vo l]Ordered By: Jose M Landry on 06-05-2023 Lymphocytes (Bld) [#/Vol] 5.0 10*3/uL 1.00-4.8 [facility] Lymphocytes/100 WBC Auto (Bl d)Ordered By: Jose M Landry on 06-05-2023 Lymphocytes/100 WBC (Bld) 43.5 % . [facility] MCH Auto (RBC) [Entitic mass ]Ordered By: Jose M Landry on 06-05-2023 MCH (RBC) [Entitic mass] 31.2 pg 27.5-35.2 [facility] MCHC Auto (RBC) [Mass/Vol]Or dered By: Jose M Landry on 06-05-2023 MCHC (RBC) [Mass/Vol] 31.7 g/dL 32.5-35.6 [facility] MCV Auto (RBC) [Entitic vol] Ordered By: Jose M Landry on 06-05-2023 MCV (RBC) [Entitic vol] 98.5 fL 83.5-101 [facility] Monocytes Auto (Bld) [#/Vol] Ordered By: Jose M Landry on 06-05-2023 Monocytes (Bld) [#/Vol] 0.8 10*3/uL 0.0-0.8 [facility] Monocytes/100 WBC Auto (Bld) Ordered By: Jose M Landry on 06-05-2023 Monocytes/100 WBC (Bld) 6.5 % . [facility] Neutrophils Auto (Bld) [#/Vo l]Ordered By: Jose M Landry on 06-05-2023 Neutrophils (Bld) [#/Vol] 5.3 10*3/uL 1.8-7.7 [facility] Neutrophils/100 WBC Auto (Bl d)Ordered By: Jose M Landry on 06-05-2023 Neutrophils/100 WBC (Bld) 45.8 % . [facility] No Panel InformationOrdered By: Jose M Landry on 06-05-2023 9.522 mL/Min [facility] N/A [facility] Nucleated erythrocytes [Pres ence] in Blood by Automated countOrdered By: Jose M Landry on 06-05-2023 Nucleated RBC Auto Ql (Bld) 0.5 /100{WBC} 0-0.5 [facility] Platelet adequacy [Presence] in Blood by Light microscopyOrdered By: Jose M Landry on 06-05-2023 Platelets LM Ql (Bld) Normal Normal [facility] Platelet mean volume Auto (B ld) [Entitic vol]Ordered By: Jose M Landry on 06-05-2023 Platelet mean volume (Bld) [Entitic vol] 10.5 fL 6.6-10.1 [facility] Platelet morphology finding [Identifier] in BloodOrdered By: Jose M Landry on 06-05-2023 Platelet morphology finding Nom (Bld) Normal Normal [facility] Platelets Auto (Bld) [#/Vol] Ordered By: Jose M Landry on 06-05-2023 Platelets (Bld) [#/Vol] 225 10*3/uL 150-450 [facility] Poikilocytosis [Presence] in Blood by Light microscopyOrdered By: Jose M Landry on 06-05-2023 Poikilocytosis LM Ql (Bld) Moderate [facility] Polychromasia [Presence] in Blood by Light microscopyOrdered By: Jose M Landry on 06-05-2023 Polychromasia LM Ql (Bld) Slight [facility] Potassium [Moles/volume] in Serum or PlasmaOrdered By: Jose M Landry on 06-05-2023 Potassium [Moles/Vol] 5.2 mmol/L 3.5-5.1 [facility] Protein [Mass/volume] in Ser um or PlasmaOrdered By: Jose M Landry on 06-05-2023 Protein [Mass/Vol] 8.1 g/dL 6.4-8.9 [facility] RBC Auto (Bld) [#/Vol]Ordere d By: Jose M Landry on 06-05-2023 RBC (Bld) [#/Vol] 2.98 10*6/uL 3.90-5.60 [facility] RBC morphologyOrdered By: Delmer Landry on 06-05-2023 RBC morphology finding Nom (Bld) N/A [facility] Schistocytes [Presence] in B lood by Light microscopyOrdered By: Jose M Landry on 06-05-2023 Schistocytes LM Ql (Bld) Slight [facility] Serum or plasma albumin/glob ulin mass ratioOrdered By: Jose M Landry on 06-05-2023 Albumin/Globulin [Mass ratio] 0.8 {ratio} [facility] Serum or plasma anion gap de terminationOrdered By: Jose M Landry on 06-05-2023 Anion gap [Moles/Vol] 15.7 mmol/L 6.0-15.0 [facility] Sodium [Moles/volume] in Ser um or PlasmaOrdered By: Jose M Landry on 06-05-2023 Sodium [Moles/Vol] 141 mmol/L 136-145 [facility] Target cellsOrdered By: Vivek Landry on 06-05-2023 Target cells LM Ql (Bld) Moderate [facility] Urea nitrogen [Mass/volume] in Serum or PlasmaOrdered By: Jose M Landry on 06-05-2023 Urea nitrogen [Mass/Vol] 54 mg/dL 7-25 [facility] WBC Auto (Bld) [#/Vol]Ordere d By: Jose M Landry on 06-05-2023 WBC (Bld) [#/Vol] 11.5 10*3/uL 4.1-10.5 [facility] Alanine aminotransferase [En zymatic activity/volume] in Serum or PlasmaOrdered By: Jose M Landry on 05-22-2023 ALT [Catalytic activity/Vol] 11 U/L 7-52 [facility] Albumin [Mass/volume] in Ser um or Plasma by Bromocresol green (BCG) dye binding methoOrdered By: Jose M Landry on 05-22-2023 Albumin BCG dye [Mass/Vol] 3.7 g/dL 3.5-5.7 [facility] Alkaline phosphatase [Enzyma tic activity/volume] in Serum or PlasmaOrdered By: Jose M Landry on 05-22-2023 ALP [Catalytic activity/Vol] 113 U/L 34-104 [facility] Aspartate aminotransferase [ Enzymatic activity/volume] in Serum or PlasmaOrdered By: Jose M Landry on 05-22-2023 AST [Catalytic activity/Vol] 18 U/L 13-39 [facility] Basophils Auto (Bld) [#/Vol] Ordered By: Jose M Landry on 05-22-2023 Basophils (Bld) [#/Vol] 0.1 10*3/uL 0.0-0.2 [facility] Basophils/100 WBC Auto (Bld) Ordered By: Jose M Landry on 05-22-2023 Basophils/100 WBC (Bld) 0.7 % . [facility] Bilirubin.total [Mass/volume ] in Serum or PlasmaOrdered By: Jose M Landry on 05-22-2023 Bilirubin [Mass/Vol] 0.3 mg/dL 0.3-1.0 [facility] CBC W Auto Differential pane l (Bld)on 05-22-2023 Basophils (Bld) [#/Vol] 0.1 10*3/uL 0.0 - 0.2 10*3/uL [facility] Basophils/100 WBC Manual cnt (Syn fld) 0.7 % . [facility] Eosinophils (Bld) [#/Vol] 0.7 10*3/uL High 0.0 - 0.45 10*3/uL [facility] Eosinophils/100 WBC Manual cnt (Syn fld) 7.2 % . [facility] Erythrocyte distribution width (RBC) [Ratio] 17.3 % High 12.0 - 14.8 % [facility] Hematocrit (Bld) [Volume fraction] 28.5 % Low 38.8 - 50.0 % [facility] Hemoglobin (Bld) [Mass/Vol] 9.0 g/dL Low 13.0 - 17.0 g/dL [facility] Interpretation and review of laboratory results Abnormal [facility] Lymphocytes (Bld) [#/Vol] 3.1 10*3/uL 1.00 - 4.8 10*3/uL [facility] Lymphocytes/100 WBC Manual cnt (Syn fld) 33.9 % . [facility] MCH (RBC) [Entitic mass] 31.3 pg 27.5 - 35.[address] [facility] MCHC (RBC) [Mass/Vol] 31.6 g/dL Low 32.5 - 35.6 g/dL [facility] MCV (RBC) [Entitic vol] 99.2 fL 83.5 - [address] [facility] Monocytes (Bld) [#/Vol] 1.1 10*3/uL High 0.0 - 0.8 [facility]+Mac[facility]1 00 WBC Manual cnt (Syn fld) 12.2 % . [facility] Neutrophils (Bld) [#/Vol] 4.2 10*3/uL 1.8 - 7.7 10*3/uL [facility] Neutrophils/100 WBC Manual cnt (Syn fld) 46.0 % . [facility] NRBC 0.5 /100{WBC} 0 - 0.5 /100{WBC} [facility] Platelet mean volume (Bld) [Entitic vol] 9.9 fL 6.6 - 10.[address] [facility] Platelets (Bld) [#/Vol] 195 10*3/uL 150 - 450 10*3/uL [facility] RBC LM.HPF (Urine sed) [#/Area] 2.87 /[HPF] Low 3.90 - 5.60 [facility] WBC (Bld) [#/Vol] 9.1 10*3/uL 4.1 - 10.5 10*3/uL [facility] WBC LM.HPF (Urine sed) [#/Area] 9.1 10*3/uL 4.1 - 10.5 10*3/uL [facility] Calcium [Mass/volume] in Ser um or PlasmaOrdered By: Jose M Landry on 05-22-2023 Calcium [Mass/Vol] 7.9 mg/dL 8.6-10.3 [facility] Carbon dioxide, total [Moles /volume] in Serum or PlasmaOrdered By: Jose M Landry on 05-22-2023 CO2 [Moles/Vol] 19.5 mmol/L 21.0-31.0 [facility] Chloride [Moles/volume] in S ltei or PlasmaOrdered By: Jose M Landry on 05-22-2023 Chloride [Moles/Vol] 110 mmol/L 98-107 [facility] Comprehensive metabolic pane fidel 05-22-2023 Albumin [Mass/Vol] 3.7 g/dL 3.5 - 5.7 g/dL [facility] Albumin/Globulin [Mass ratio] 0.9 {ratio} [facility] ALP [Catalytic activity/Vol] 113 U/L High 34 - 104 U/L [facility] ALT [Catalytic activity/Vol] 11 U/L 7 - 52 U/L [facility] Anion gap [Moles/Vol] 14.6 mmol/L 6.0 - 15.0 NO [facility] AST [Catalytic activity/Vol] 18 U/L 13 - 39 U/L [facility] Bilirubin [Mass/Vol] 0.3 mg/dL 0.3 - 1 .0 mg/dL [facility] Calcium [Mass/Vol] 7.9 mg/dL Low 8.6 - 10. 3 mg/dL [facility] Chloride [Moles/Vol] 110 mmol/L High 98 - 10 7 mmol/L [facility] CO2 [Moles/Vol] 19.5 mmol/L Low 21.0 - 31.0 mmol/L [facility] Creatinine (U) [Mass/Vol] 5.87 mg/dL High 0.70 - 1.30 mg/dL [facility] GFR/1.73 sq M.predicted MDRD (S/P/Bld) [Vol rate/Area] 9.502 mL/min/{1.73_m2} [facility] Globulin (S) [Mass/Vol] 4.2 g/dL [facility] Glucose [Mass/Vol] 157 mg/dL High 70 - 100 mg/dL [facility] Comment on above: Random Glucose Refer ence Range is dependent on time and content of last meal. Glucose of more than 200 mg/dL in a nonstressed, ambulatory subject supports the diagnosis of Diabetes Mellitus. ADA recommended reference range Interpretation and review of laboratory results Abnormal [facility] Potassium [Moles/Vol] 5.1 mmol/L 3.5 - 5.1 mmol/L [facility] Protein [Mass/Vol] 7.9 g/dL 6.4 - 8.9 g/dL [facility] Sodium [Moles/Vol] 139 mmol/L 136 - 145 mmol/L [facility] Urea nitrogen [Mass/Vol] 55 mg/dL High 7 - 25 mg/dL [facility] Creatinine [Mass/volume] in Serum or PlasmaOrdered By: Jose M Landry on 05-22-2023 Creatinine [Mass/Vol] 5.87 mg/dL 0.70-1.30 [facility] Eosinophils Auto (Bld) [#/Vo l]Ordered By: Jose M Landry on 05-22-2023 Eosinophils (Bld) [#/Vol] 0.7 10*3/uL 0.0-0.45 [facility] Eosinophils/100 WBC Auto (Bl d)Ordered By: Jose M Landry on 05-22-2023 Eosinophils/100 WBC (Bld) 7.2 % . [facility] Erythrocyte distribution wid th Auto (RBC) [Ratio]Ordered By: Jose M Landry on 05-22-2023 Erythrocyte distribution width (RBC) [Ratio] 17.3 % 12.0-14.8 [facility] Globulin Calc (S) [Mass/Vol] Ordered By: Jose M Landry on 05-22-2023 Globulin (S) [Mass/Vol] 4.2 g/dL [facility] Glucose [Mass/volume] in Ser um or PlasmaOrdered By: Jose M Landry on 05-22-2023 Glucose [Mass/Vol] 157 mg/dL 70-100 [facility] Hematocrit Auto (Bld) [Volum e fraction]Ordered By: Jose M Landry on 05-22-2023 Hematocrit (Bld) [Volume fraction] 28.5 % 38.8-50.0 [facility] Hemoglobin [Mass/volume] in BloodOrdered By: Jose M Landry on 05-22-2023 Hemoglobin (Bld) [Mass/Vol] 9.0 g/dL 13.0-17.0 [facility] Leukocytes [#/volume] correc lakesha for nucleated erythrocytes in Blood by Automated counOrdered By: Jose M Landry on 05-22-2023 WBC corrected for nucl RBC Auto (Bld) [#/Vol] 9.1 10*3/uL 4.1-10.5 [facility] Lymphocytes Auto (Bld) [#/Vo l]Ordered By: Jose M Landry on 05-22-2023 Lymphocytes (Bld) [#/Vol] 3.1 10*3/uL 1.00-4.8 [facility] Lymphocytes/100 WBC Auto (Bl d)Ordered By: Jose M Landry on 02-15-2024 Lymphocytes/100 WBC (Bld) 33.9 % . [facility] MCH Auto (RBC) [Entitic mass ]Ordered By: Jose M Landry on 05-22-2023 MCH (RBC) [Entitic mass] 31.3 pg 27.5-35.2 [facility] MCHC Auto (RBC) [Mass/Vol]Or dered By: Jose M Landry on 05-22-2023 MCHC (RBC) [Mass/Vol] 31.6 g/dL 32.5-35.6 [facility] MCV Auto (RBC) [Entitic vol] Ordered By: Jose M Landry on 05-22-2023 MCV (RBC) [Entitic vol] 99.2 fL 83.5-101 [facility] Monocytes Auto (Bld) [#/Vol] Ordered By: Jose M Landry on 05-22-2023 Monocytes (Bld) [#/Vol] 1.1 10*3/uL 0.0-0.8 [facility] Monocytes/100 WBC Auto (Bld) Ordered By: Jose M Landry on 05-22-2023 Monocytes/100 WBC (Bld) 12.2 % . [facility] Neutrophils Auto (Bld) [#/Vo l]Ordered By: Jose M Landry on 05-22-2023 Neutrophils (Bld) [#/Vol] 4.2 10*3/uL 1.8-7.7 [facility] Neutrophils/100 WBC Auto (Bl d)Ordered By: Jose M Landry on 05-22-2023 Neutrophils/100 WBC (Bld) 46.0 % . [facility] No Panel InformationOrdered By: Jose M Landry on 05-22-2023 9.502 mL/Min [facility] N/A [facility] Nucleated erythrocytes [Pres ence] in Blood by Automated countOrdered By: Jose M Landry on 05-22-2023 Nucleated RBC Auto Ql (Bld) 0.5 /100{WBC} 0-0.5 [facility] Platelet mean volume Auto (B ld) [Entitic vol]Ordered By: Jose M Landry on 05-22-2023 Platelet mean volume (Bld) [Entitic vol] 9.9 fL 6.6-10.1 [facility] Platelets Auto (Bld) [#/Vol] Ordered By: Jose M Landry on 05-22-2023 Platelets (Bld) [#/Vol] 195 10*3/uL 150-450 [facility] Potassium [Moles/volume] in Serum or PlasmaOrdered By: Jose M Landry on 05-22-2023 Potassium [Moles/Vol] 5.1 mmol/L 3.5-5.1 [facility] Protein [Mass/volume] in Ser um or PlasmaOrdered By: Jose M Landry on 05-22-2023 Protein [Mass/Vol] 7.9 g/dL 6.4-8.9 [facility] RBC Auto (Bld) [#/Vol]Ordere d By: Jose M Landry on 05-22-2023 RBC (Bld) [#/Vol] 2.87 10*6/uL 3.90-5.60 [facility] Serum or plasma albumin/glob ulin mass ratioOrdered By: Jose M Landry on 05-22-2023 Albumin/Globulin [Mass ratio] 0.9 {ratio} [facility] Serum or plasma anion gap de terminationOrdered By: Jose M Landry on 05-22-2023 Anion gap [Moles/Vol] 14.6 mmol/L 6.0-15.0 [facility] Sodium [Moles/volume] in Ser um or PlasmaOrdered By: Jose M Landry on 05-22-2023 Sodium [Moles/Vol] 139 mmol/L 136-145 [facility] Urea nitrogen [Mass/volume] in Serum or PlasmaOrdered By: Jose M Landry on 05-22-2023 Urea nitrogen [Mass/Vol] 55 mg/dL 7-25 [facility] WBC Auto (Bld) [#/Vol]Ordere d By: Jose M Landry on 05-22-2023 WBC (Bld) [#/Vol] 9.1 10*3/uL 4.1-10.5 [facility] Alanine aminotransferase [En zymatic activity/volume] in Serum or PlasmaOrdered By: Jose M Landry on 05-08-2023 ALT [Catalytic activity/Vol] 9 U/L 7-52 [facility] Albumin [Mass/volume] in Ser um or Plasma by Bromocresol green (BCG) dye binding methoOrdered By: Jose M Landry on 05-08-2023 Albumin BCG dye [Mass/Vol] 3.5 g/dL 3.5-5.7 [facility] Alkaline phosphatase [Enzyma tic activity/volume] in Serum or PlasmaOrdered By: Jose M Landry on 05-08-2023 ALP [Catalytic activity/Vol] 117 U/L 34-104 [facility] Aspartate aminotransferase [ Enzymatic activity/volume] in Serum or PlasmaOrdered By: Jose M Landry on 05-08-2023 AST [Catalytic activity/Vol] 16 U/L 13-39 [facility] Basophils Auto (Bld) [#/Vol] Ordered By: Jose M Landry on 05-08-2023 Basophils (Bld) [#/Vol] 0.1 10*3/uL 0.0-0.2 [facility] Basophils/100 WBC Auto (Bld) Ordered By: Jose M Landry on 05-08-2023 Basophils/100 WBC (Bld) 1.1 % . [facility] Bilirubin.total [Mass/volume ] in Serum or PlasmaOrdered By: Jose M Landry on 05-08-2023 Bilirubin [Mass/Vol] 0.2 mg/dL 0.3-1.0 [facility] CBC W Auto Differential pane l (Bld)on 05-08-2023 Basophils (Bld) [#/Vol] 0.1 10*3/uL 0.0 - 0.2 10*3/uL [facility] Basophils/100 WBC Manual cnt (Syn fld) 1.1 % . [facility] Eosinophils (Bld) [#/Vol] 0.6 10*3/uL High 0.0 - 0.45 10*3/uL [facility] Eosinophils/100 WBC Manual cnt (Syn fld) 5.4 % . [facility] Erythrocyte distribution width (RBC) [Ratio] 17.8 % High 12.0 - 14.8 % [facility] Hematocrit (Bld) [Volume fraction] 28.1 % Low 38.8 - 50.0 % [facility] Hemoglobin (Bld) [Mass/Vol] 8.8 g/dL Low 13.0 - 17.0 g/dL [facility] Interpretation and review of laboratory results Abnormal [facility] Lymphocytes (Bld) [#/Vol] 4.9 10*3/uL High 1.00 - 4.8 10*3/uL [facility] Lymphocytes/100 WBC Manual cnt (Syn fld) 43.5 % . [facility] MCH (RBC) [Entitic mass] 30.9 pg 27.5 - 35.[address] [facility] MCHC (RBC) [Mass/Vol] 31.2 g/dL Low 32.5 - 35.6 g/dL [facility] MCV (RBC) [Entitic vol] 99.1 fL 83.5 - [address] [facility] Monocytes (Bld) [#/Vol] 1.1 10*3/uL High 0.0 - 0.8 10*3/uL [facility] Monocytes+Macrophages/1 00 WBC Manual cnt (Syn fld) 9.7 % . [facility] Neutrophils (Bld) [#/Vol] 4.5 10*3/uL 1.8 - 7.7 10*3/uL [facility] Neutrophils/100 WBC Manual cnt (Syn fld) 40.3 % . [facility] NRBC 0.6 /100{WBC} High 0 - 0.5 /100{WBC} [facility] Platelet mean volume (Bld) [Entitic vol] 10.5 fL High 6.6 - 10.[address] [facility] Platelets (Bld) [#/Vol] 279 10*3/uL 150 - 450 10*3/uL [facility] RBC LM.HPF (Urine sed) [#/Area] 2.84 /[HPF] Low 3.90 - 5.60 [facility] WBC (Bld) [#/Vol] 11.2 10*3/uL High 4.1 - 10.5 10*3/uL [facility] WBC LM.HPF (Urine sed) [#/Area] 11.2 10*3/uL High 4.1 - 10.5 10*3/uL [facility] Calcium [Mass/volume] in Ser um or PlasmaOrdered By: Jose M Landry on 05-08-2023 Calcium [Mass/Vol] 7.8 mg/dL 8.6-10.3 [facility] Carbon dioxide, total [Moles /volume] in Serum or PlasmaOrdered By: Jose M Landry on 05-08-2023 CO2 [Moles/Vol] 22.3 mmol/L 21.0-31.0 [facility] Chloride [Moles/volume] in S leti or PlasmaOrdered By: Jose M Landry on 05-08-2023 Chloride [Moles/Vol] 108 mmol/L 98-107 [facility] Comprehensive metabolic pane fidel 05-08-2023 Albumin [Mass/Vol] 3.5 g/dL 3.5 - 5.7 g/dL [facility] Albumin/Globulin [Mass ratio] 0.8 {ratio} [facility] ALP [Catalytic activity/Vol] 117 U/L High 34 - 104 U/L [facility] ALT [Catalytic activity/Vol] 9 U/L 7 - 52 U/L [facility] Anion gap [Moles/Vol] 15.4 mmol/L High 6.0 - 15.0 [facility] AST [Catalytic activity/Vol] 16 U/L 13 - 39 U/L [facility] Bilirubin [Mass/Vol] 0.2 mg/dL Low 0.3 - 1 .0 mg/dL [facility] Calcium [Mass/Vol] 7.8 mg/dL Low 8.6 - 10. 3 mg/dL [facility] Chloride [Moles/Vol] 108 mmol/L High 98 - 10 7 mmol/L [facility] CO2 [Moles/Vol] 22.3 mmol/L 21.0 - 31.0 mmol/L [facility] Creatinine (U) [Mass/Vol] 5.50 mg/dL High 0.70 - 1.30 mg/dL [facility] GFR/1.73 sq M.predicted MDRD (S/P/Bld) [Vol rate/Area] 10.274 mL/min/{1.73_m2} [facility] Globulin (S) [Mass/Vol] 4.2 g/dL [facility] Glucose [Mass/Vol] 127 mg/dL High 70 - 100 mg/dL [facility] Comment on above: Random Glucose Refer ence Range is dependent on time and content of last meal. Glucose of more than 200 mg/dL in a nonstressed, ambulatory subject supports the diagnosis of Diabetes Mellitus. ADA recommended reference range Interpretation and review of laboratory results Abnormal [facility] Potassium [Moles/Vol] 4.7 mmol/L 3.5 - 5.1 mmol/L [facility] Protein [Mass/Vol] 7.7 g/dL 6.4 - 8.9 g/dL [facility] Sodium [Moles/Vol] 141 mmol/L 136 - 145 mmol/L [facility] Urea nitrogen [Mass/Vol] 50 mg/dL High 7 - 25 mg/dL [facility] Creatinine [Mass/volume] in Serum or PlasmaOrdered By: Jose M Landry on 05-08-2023 Creatinine [Mass/Vol] 5.50 mg/dL 0.70-1.30 [facility] Eosinophils Auto (Bld) [#/Vo l]Ordered By: Jose M Landry on 05-08-2023 Eosinophils (Bld) [#/Vol] 0.6 10*3/uL 0.0-0.45 [facility] Eosinophils/100 WBC Auto (Bl d)Ordered By: Jose M Landry on 05-08-2023 Eosinophils/100 WBC (Bld) 5.4 % . [facility] Erythrocyte distribution wid th Auto (RBC) [Ratio]Ordered By: Jose M Landry on 05-08-2023 Erythrocyte distribution width (RBC) [Ratio] 17.8 % 12.0-14.8 [facility] Globulin Calc (S) [Mass/Vol] Ordered By: Jose M Landry on 05-08-2023 Globulin (S) [Mass/Vol] 4.2 g/dL [facility] Glucose [Mass/volume] in Ser um or PlasmaOrdered By: Jose M Landry on 05-08-2023 Glucose [Mass/Vol] 127 mg/dL 70-100 [facility] Hematocrit Auto (Bld) [Volum e fraction]Ordered By: Jose M Landry on 05-08-2023 Hematocrit (Bld) [Volume fraction] 28.1 % 38.8-50.0 [facility] Hemoglobin [Mass/volume] in BloodOrdered By: Jose M Landry on 05-08-2023 Hemoglobin (Bld) [Mass/Vol] 8.8 g/dL 13.0-17.0 [facility] Leukocytes [#/volume] correc lakesha for nucleated erythrocytes in Blood by Automated counOrdered By: Jose M Landry on 05-08-2023 WBC corrected for nucl RBC Auto (Bld) [#/Vol] 11.2 10*3/uL 4.1-10.5 [facility] Lymphocytes Auto (Bld) [#/Vo l]Ordered By: Jose M Landry on 05-08-2023 Lymphocytes (Bld) [#/Vol] 4.9 10*3/uL 1.00-4.8 [facility] Lymphocytes/100 WBC Auto (Bl d)Ordered By: Jose M Landry on 05-08-2023 Lymphocytes/100 WBC (Bld) 43.5 % . [facility] MCH Auto (RBC) [Entitic mass ]Ordered By: Jose M Landry on 05-08-2023 MCH (RBC) [Entitic mass] 30.9 pg 27.5-35.2 [facility] MCHC Auto (RBC) [Mass/Vol]Or dered By: Jose M Landry on 05-08-2023 MCHC (RBC) [Mass/Vol] 31.2 g/dL 32.5-35.6 [facility] MCV Auto (RBC) [Entitic vol] Ordered By: Jose M Landry on 05-08-2023 MCV (RBC) [Entitic vol] 99.1 fL 83.5-101 [facility] Monocytes Auto (Bld) [#/Vol] Ordered By: Jose M Landry on 05-08-2023 Monocytes (Bld) [#/Vol] 1.1 10*3/uL 0.0-0.8 [facility] Monocytes/100 WBC Auto (Bld) Ordered By: Jose M Landry on 05-08-2023 Monocytes/100 WBC (Bld) 9.7 % . [facility] Neutrophils Auto (Bld) [#/Vo l]Ordered By: Jose M Landry on 05-08-2023 Neutrophils (Bld) [#/Vol] 4.5 10*3/uL 1.8-7.7 [facility] Neutrophils/100 WBC Auto (Bl d)Ordered By: Jose M Landry on 05-08-2023 Neutrophils/100 WBC (Bld) 40.3 % . [facility] No Panel InformationOrdered By: Jose M Landry on 05-08-2023 10.274 mL/Min [facility] N/A [facility] Nucleated erythrocytes [Pres ence] in Blood by Automated countOrdered By: Jose M Landry on 05-08-2023 Nucleated RBC Auto Ql (Bld) 0.6 /100{WBC} 0-0.5 [facility] Platelet mean volume Auto (B ld) [Entitic vol]Ordered By: Jose M Landry on 05-08-2023 Platelet mean volume (Bld) [Entitic vol] 10.5 fL 6.6-10.1 [facility] Platelets Auto (Bld) [#/Vol] Ordered By: Jose M Landry on 05-08-2023 Platelets (Bld) [#/Vol] 279 10*3/uL 150-450 [facility] Potassium [Moles/volume] in Serum or PlasmaOrdered By: Jose M Landry on 05-08-2023 Potassium [Moles/Vol] 4.7 mmol/L 3.5-5.1 [facility] Protein [Mass/volume] in Ser um or PlasmaOrdered By: Jose M Landry on 05-08-2023 Protein [Mass/Vol] 7.7 g/dL 6.4-8.9 [facility] RBC Auto (Bld) [#/Vol]Ordere d By: Jose M Landry on 05-08-2023 RBC (Bld) [#/Vol] 2.84 10*6/uL 3.90-5.60 [facility] Serum or plasma albumin/glob ulin mass ratioOrdered By: Jose M Landry on 05-08-2023 Albumin/Globulin [Mass ratio] 0.8 {ratio} [facility] Serum or plasma anion gap de terminationOrdered By: Jose M Landry on 05-08-2023 Anion gap [Moles/Vol] 15.4 mmol/L 6.0-15.0 [facility] Sodium [Moles/volume] in Ser um or PlasmaOrdered By: Jose M Landry on 05-08-2023 Sodium [Moles/Vol] 141 mmol/L 136-145 [facility] Urea nitrogen [Mass/volume] in Serum or PlasmaOrdered By: Jose M Landry on 05-08-2023 Urea nitrogen [Mass/Vol] 50 mg/dL 7-25 [facility] WBC Auto (Bld) [#/Vol]Ordere d By: Jose M Landry on 05-08-2023 WBC (Bld) [#/Vol] 11.2 10*3/uL 4.1-10.5 [facility] Alanine aminotransferase [En zymatic activity/volume] in Serum or PlasmaOrdered By: Jose M Landry on 04-22-2023 ALT [Catalytic activity/Vol] 12 U/L 7-52 [facility] Albumin [Mass/volume] in Ser um or Plasma by Bromocresol green (BCG) dye binding methoOrdered By: Jose M Landry on 04-22-2023 Albumin BCG dye [Mass/Vol] 3.5 g/dL 3.5-5.7 [facility] Alkaline phosphatase [Enzyma tic activity/volume] in Serum or PlasmaOrdered By: Jose M Landry on 04-22-2023 ALP [Catalytic activity/Vol] 132 U/L 34-104 [facility] Anisocytosis LM Ql (Bld)Orde red By: Jose M Landry on 04-22-2023 Anisocytosis Ql (Bld) Marked [facility] Aspartate aminotransferase [ Enzymatic activity/volume] in Serum or PlasmaOrdered By: Jose M Landry on 04-22-2023 AST [Catalytic activity/Vol] 19 U/L 13-39 [facility] Basophils Auto (Bld) [#/Vol] Ordered By: Jose M Landry on 04-22-2023 Basophils (Bld) [#/Vol] 0.1 10*3/uL 0.0-0.2 [facility] Basophils/100 WBC Auto (Bld) Ordered By: Jose M Landry on 04-22-2023 Basophils/100 WBC (Bld) 0.8 % . [facility] Bilirubin.total [Mass/volume ] in Serum or PlasmaOrdered By: Jose M Landry on 04-22-2023 Bilirubin [Mass/Vol] 0.3 mg/dL 0.3-1.0 [facility] Calcium [Mass/volume] in Ser um or PlasmaOrdered By: Jose M Landry on 04-22-2023 Calcium [Mass/Vol] 7.5 mg/dL 8.6-10.3 [facility] Carbon dioxide, total [Moles /volume] in Serum or PlasmaOrdered By: Jose M Landry on 04-22-2023 CO2 [Moles/Vol] 20.9 mmol/L 21.0-31.0 [facility] Chloride [Moles/volume] in S leti or PlasmaOrdered By: Jose M Landry on 04-22-2023 Chloride [Moles/Vol] 109 mmol/L 98-107 [facility] Creatinine [Mass/volume] in Serum or PlasmaOrdered By: Jose M Landry on 04-22-2023 Creatinine [Mass/Vol] 5.95 mg/dL 0.70-1.30 [facility] Eosinophils Auto (Bld) [#/Vo l]Ordered By: Jose M Landry on 04-22-2023 Eosinophils (Bld) [#/Vol] 0.4 10*3/uL 0.0-0.45 [facility] Eosinophils/100 WBC Auto (Bl d)Ordered By: Jose M Landry on 04-22-2023 Eosinophils/100 WBC (Bld) 4.1 % . [facility] Erythrocyte distribution wid th Auto (RBC) [Ratio]Ordered By: Jose M Landry on 04-22-2023 Erythrocyte distribution width (RBC) [Ratio] 19.2 % 12.0-14.8 [facility] Globulin Calc (S) [Mass/Vol] Ordered By: Jose M Landry on 04-22-2023 Globulin (S) [Mass/Vol] 4.3 g/dL [facility] Glucose [Mass/volume] in Ser um or PlasmaOrdered By: Jose M Landry on 04-22-2023 Glucose [Mass/Vol] 107 mg/dL 70-100 [facility] Hematocrit Auto (Bld) [Volum e fraction]Ordered By: Jose M Landry on 04-22-2023 Hematocrit (Bld) [Volume fraction] 27.2 % 38.8-50.0 [facility] Hemoglobin [Mass/volume] in BloodOrdered By: Jose M Landry on 04-22-2023 Hemoglobin (Bld) [Mass/Vol] 8.8 g/dL 13.0-17.0 [facility] Hypochromia LM Ql (Bld)Order ed By: Jose M Landry on 04-22-2023 Hypochromia Ql (Bld) Moderate [facility] Leukocytes [#/volume] correc lakesha for nucleated erythrocytes in Blood by Automated counOrdered By: Jose M Landry on 04-22-2023 WBC corrected for nucl RBC Auto (Bld) [#/Vol] 9.9 10*3/uL 4.1-10.5 [facility] Lymphocytes Auto (Bld) [#/Vo l]Ordered By: Jose M Landry on 04-22-2023 Lymphocytes (Bld) [#/Vol] 4.2 10*3/uL 1.00-4.8 [facility] Lymphocytes/100 WBC Auto (Bl d)Ordered By: Jose M Landry on 04-22-2023 Lymphocytes/100 WBC (Bld) 42.5 % . [facility] MCH Auto (RBC) [Entitic mass ]Ordered By: Jose M Landry on 04-22-2023 MCH (RBC) [Entitic mass] 32.1 pg 27.5-35.2 [facility] MCHC Auto (RBC) [Mass/Vol]Or dered By: Jose M Landry on 04-22-2023 MCHC (RBC) [Mass/Vol] 32.4 g/dL 32.5-35.6 [facility] MCV Auto (RBC) [Entitic vol] Ordered By: Jose M Landry on 04-22-2023 MCV (RBC) [Entitic vol] 99.2 fL 83.5-101 [facility] Macrocytes LM Ql (Bld)Ordere d By: Jose M Landry on 04-22-2023 Macrocytes Ql (Bld) Marked [facility] Monocytes Auto (Bld) [#/Vol] Ordered By: Jose M Landry on 04-22-2023 Monocytes (Bld) [#/Vol] 0.9 10*3/uL 0.0-0.8 [facility] Monocytes/100 WBC Auto (Bld) Ordered By: Jose M Landry on 04-22-2023 Monocytes/100 WBC (Bld) 8.9 % . [facility] Neutrophils Auto (Bld) [#/Vo l]Ordered By: Jose M Landry on 04-22-2023 Neutrophils (Bld) [#/Vol] 4.3 10*3/uL 1.8-7.7 [facility] Neutrophils/100 WBC Auto (Bl d)Ordered By: Jose M Landry on 04-22-2023 Neutrophils/100 WBC (Bld) 43.7 % . [facility] No Panel InformationOrdered By: Jose M Landry on 04-22-2023 9.349 mL/Min [facility] N/A [facility] Nucleated erythrocytes [Pres ence] in Blood by Automated countOrdered By: Jose M Landry on 04-22-2023 Nucleated RBC Auto Ql (Bld) 0.1 /100{WBC} 0-0.5 [facility] Ovalocyte detectionOrdered B y: Jose M Landry on 04-22-2023 Ovalocytes LM Ql (Bld) [facility] Platelet adequacy [Presence] in Blood by Light microscopyOrdered By: Jose M Landry on 04-22-2023 Platelets LM Ql (Bld) Normal Normal [facility] Platelet mean volume Auto (B ld) [Entitic vol]Ordered By: Jose M Landry on 04-22-2023 Platelet mean volume (Bld) [Entitic vol] 9.8 fL 6.6-10.1 [facility] Platelet morphology finding [Identifier] in BloodOrdered By: Jose M Landry on 04-22-2023 Platelet morphology finding Nom (Bld) N/A [facility] Platelets Auto (Bld) [#/Vol] Ordered By: Jose M Landry on 04-22-2023 Platelets (Bld) [#/Vol] 221 10*3/uL 150-450 [facility] Platelets Large [Presence] i n Blood by Light microscopyOrdered By: Jose M Landry on 04-22-2023 Platelets Large LM Ql (Bld) Slight [facility] Poikilocytosis [Presence] in Blood by Light microscopyOrdered By: Jose M Landry on 04-22-2023 Poikilocytosis LM Ql (Bld) Moderate [facility] Polychromasia [Presence] in Blood by Light microscopyOrdered By: Jose M Landry on 04-22-2023 Polychromasia LM Ql (Bld) Slight [facility] Potassium [Moles/volume] in Serum or PlasmaOrdered By: Jose M Landry on 04-22-2023 Potassium [Moles/Vol] 4.6 mmol/L 3.5-5.1 [facility] Protein [Mass/volume] in Ser um or PlasmaOrdered By: Jose M Landry on 04-22-2023 Protein [Mass/Vol] 7.8 g/dL 6.4-8.9 [facility] RBC Auto (Bld) [#/Vol]Ordere d By: Jose M Landry on 04-22-2023 RBC (Bld) [#/Vol] 2.74 10*6/uL 3.90-5.60 [facility] RBC morphologyOrdered By: Delmer Landry on 04-22-2023 RBC morphology finding Nom (Bld) N/A [facility] Schistocytes [Presence] in B lood by Light microscopyOrdered By: Jose M Landry on 04-22-2023 Schistocytes LM Ql (Bld) Slight [facility] Serum or plasma albumin/glob ulin mass ratioOrdered By: Jose M Landry on 04-22-2023 Albumin/Globulin [Mass ratio] 0.8 {ratio} [facility] Serum or plasma anion gap de terminationOrdered By: Jose M Landry on 04-22-2023 Anion gap [Moles/Vol] 15.7 mmol/L 6.0-15.0 [facility] Sodium [Moles/volume] in Ser um or PlasmaOrdered By: Jose M Landry on 04-22-2023 Sodium [Moles/Vol] 141 mmol/L 136-145 [facility] Target cellsOrdered By: Vivek Landry on 04-22-2023 Target cells LM Ql (Bld) Slight [facility] Urea nitrogen [Mass/volume] in Serum or PlasmaOrdered By: Jose M Landry on 04-22-2023 Urea nitrogen [Mass/Vol] 61 mg/dL 7-25 [facility] WBC Auto (Bld) [#/Vol]Ordere d By: Jose M Landry on 04-22-2023 WBC (Bld) [#/Vol] 9.9 10*3/uL 4.1-10.5 [facility] Anisocytosis LM Ql (Bld)Orde red By: Brandan Cruz on 04-16-2023 Anisocytosis Ql (Bld) Moderate [facility] Band form neutrophils/100 WB C Manual cnt (Bld)Ordered By: Brandan Cruz on 04-16-2023 Band form neutrophils/100 WBC (Bld) 1 % 0-5 [facility] Basophils Auto (Bld) [#/Vol] Ordered By: Brandan Cruz on 04-16-2023 Basophils (Bld) [#/Vol] N/A [facility] Basophils/100 WBC Auto (Bld) Ordered By: Brandan Cruz on 04-16-2023 Basophils/100 WBC (Bld) N/A [facility] Calcium [Mass/volume] in Ser um or PlasmaOrdered By: Pedro Gunter on 04-16-2023 Calcium [Mass/Vol] 7.9 mg/dL 8.6-10.3 [facility] Carbon dioxide, total [Moles /volume] in Serum or PlasmaOrdered By: Pedro Gunter on 04-16-2023 CO2 [Moles/Vol] 21.8 mmol/L 21.0-31.0 [facility] Chloride [Moles/volume] in S leti or PlasmaOrdered By: Pedro Gunter on 04-16-2023 Chloride [Moles/Vol] 109 mmol/L 98-107 [facility] Creatinine [Mass/volume] in Serum or PlasmaOrdered By: Pedro Gunter on 04-16-2023 Creatinine [Mass/Vol] 5.91 mg/dL 0.70-1.30 [facility] Eosinophils Auto (Bld) [#/Vo l]Ordered By: Brandan Cruz on 04-16-2023 Eosinophils (Bld) [#/Vol] N/A [facility] Eosinophils/100 WBC Auto (Bl d)Ordered By: Brandan Cruz on 04-16-2023 Eosinophils/100 WBC (Bld) N/A [facility] Eosinophils/100 WBC Manual c nt (Bld)Ordered By: Brandan Cruz on 04-16-2023 Eosinophils/100 WBC (Bld) 3 % 1-3 [facility] Erythrocyte distribution wid th Auto (RBC) [Ratio]Ordered By: Brandan Cruz on 04-16-2023 Erythrocyte distribution width (RBC) [Ratio] 19.3 % 12.0-14.8 [facility] Giant platelets/100 leukocyt es [Ratio] in Blood by Manual countOrdered By: Brandan rCuz on 04-16-2023 Giant platelets/100 WBC Manual cnt (Bld) [Ratio] 1 /100{WBC} [facility] Glucose Glucometer (BldC) [M ass/Vol]Ordered By: Fawad Rocha on 04-16-2023 Glucose [Mass/Vol] 183 mg/dL [facility] Glucose [Mass/volume] in Ser um or PlasmaOrdered By: Pedro Gunter on 04-16-2023 Glucose [Mass/Vol] 150 mg/dL 70-100 [facility] Hematocrit Auto (Bld) [Volum e fraction]Ordered By: Brandan Cruz on 04-16-2023 Hematocrit (Bld) [Volume fraction] 27.5 % 38.8-50.0 [facility] Hemoglobin [Mass/volume] in BloodOrdered By: Brandan Cruz on 04-16-2023 Hemoglobin (Bld) [Mass/Vol] 8.7 g/dL 13.0-17.0 [facility] Leukocytes [#/volume] correc lakesha for nucleated erythrocytes in Blood by Automated counOrdered By: Brandan Cruz on 04-16-2023 WBC corrected for nucl RBC Auto (Bld) [#/Vol] 13.0 10*3/uL 4.1-10.5 [facility] Lymphocytes Auto (Bld) [#/Vo l]Ordered By: Brandan Cruz on 04-16-2023 Lymphocytes (Bld) [#/Vol] N/A [facility] Lymphocytes/100 WBC Auto (Bl d)Ordered By: Brandan Cruz on 04-16-2023 Lymphocytes/100 WBC (Bld) N/A [facility] Lymphocytes/100 WBC Manual c nt (Bld)Ordered By: Brandan Cruz on 04-16-2023 Lymphocytes/100 WBC (Bld) 43 % 18-42 [facility] MCH Auto (RBC) [Entitic mass ]Ordered By: Brandan Cruz on 04-16-2023 MCH (RBC) [Entitic mass] 31.6 pg 27.5-35.2 [facility] MCHC Auto (RBC) [Mass/Vol]Or dered By: Brandan Cruz on 04-16-2023 MCHC (RBC) [Mass/Vol] 31.8 g/dL 32.5-35.6 [facility] MCV Auto (RBC) [Entitic vol] Ordered By: Brandan Cruz on 04-16-2023 MCV (RBC) [Entitic vol] 99.3 fL 83.5-101 [facility] Macrocytes LM Ql (Bld)Ordere d By: Brandan Cruz on 04-16-2023 Macrocytes Ql (Bld) Marked [facility] Monocytes Auto (Bld) [#/Vol] Ordered By: Brandan Cruz on 04-16-2023 Monocytes (Bld) [#/Vol] N/A [facility] Monocytes/100 WBC Auto (Bld) Ordered By: Brandan Cruz on 04-16-2023 Monocytes/100 WBC (Bld) N/A [facility] Monocytes/100 WBC Manual cnt (Bld)Ordered By: Brandan Cruz on 04-16-2023 Monocytes/100 WBC (Bld) 11 % 2-11 [facility] Neutrophils Auto (Bld) [#/Vo l]Ordered By: Brandan Cruz on 04-16-2023 Neutrophils (Bld) [#/Vol] N/A [facility] Neutrophils/100 WBC Auto (Bl d)Ordered By: Brandan Cruz on 04-16-2023 Neutrophils/100 WBC (Bld) N/A [facility] No Panel InformationOrdered By: Fawad Rocha on 04-16-2023 See comment [facility] Cleaned meter [facility] No Panel InformationOrdered By: Pedro Gunter on 04-16-2023 9.426 mL/Min [facility] 14.48 [facility] Nucleated RBC/100 WBC Manual cnt (Bld) [Ratio]Ordered By: Brandan Cruz on 04-16-2023 Nucleated RBC/100 WBC (Bld) [Ratio] 2 /100{WBC} 0-0 [facility] Nucleated erythrocytes [Pres ence] in Blood by Automated countOrdered By: Brandan Cruz on 04-16-2023 Nucleated RBC Auto Ql (Bld) N/A [facility] Platelet adequacy [Presence] in Blood by Light microscopyOrdered By: Brandan Cruz on 04-16-2023 Platelets LM Ql (Bld) Normal Normal [facility] Platelet mean volume Auto (B ld) [Entitic vol]Ordered By: Brandan Cruz on 04-16-2023 Platelet mean volume (Bld) [Entitic vol] 9.6 fL 6.6-10.1 [facility] Platelet morphology finding [Identifier] in BloodOrdered By: Brandan Cruz on 04-16-2023 Platelet morphology finding Nom (Bld) Normal Normal [facility] Platelets Auto (Bld) [#/Vol] Ordered By: Brandan Cruz on 04-16-2023 Platelets (Bld) [#/Vol] 266 10*3/uL 150-450 [facility] Polychromasia [Presence] in Blood by Light microscopyOrdered By: Brandan Cruz on 04-16-2023 Polychromasia LM Ql (Bld) Slight [facility] Potassium [Moles/volume] in Serum or PlasmaOrdered By: Pedro Gunter on 04-16-2023 Potassium [Moles/Vol] 4.8 mmol/L 3.5-5.1 [facility] RBC Auto (Bld) [#/Vol]Ordere d By: Brandan Cruz on 04-16-2023 RBC (Bld) [#/Vol] 2.77 10*6/uL 3.90-5.60 [facility] RBC morphologyOrdered By: Vannesa Cruz on 04-16-2023 RBC morphology finding Nom (Bld) N/A [facility] Schistocytes [Presence] in B lood by Light microscopyOrdered By: Brandan Cruz on 04-16-2023 Schistocytes LM Ql (Bld) Slight [facility] Segmented neutrophils/100 WB C Manual cnt (Bld)Ordered By: Brandan Cruz on 04-16-2023 Segmented neutrophils/100 WBC (Bld) 41 % 50-70 [facility] Serum or plasma anion gap de terminationOrdered By: Pedro Gunter on 04-16-2023 Anion gap [Moles/Vol] 14.0 mmol/L 6.0-15.0 [facility] Sodium [Moles/volume] in Ser um or PlasmaOrdered By: Pedro Gunter on 04-16-2023 Sodium [Moles/Vol] 140 mmol/L 136-145 [facility] Target cellsOrdered By: Justin Cruz on 04-16-2023 Target cells LM Ql (Bld) Slight [facility] Urea nitrogen [Mass/volume] in Serum or PlasmaOrdered By: Pedro Gunter on 04-16-2023 Urea nitrogen [Mass/Vol] 51 mg/dL 7-25 [facility] Variant lymphocytes/100 WBC Manual cnt (Bld)Ordered By: Brandan Cruz on 04-16-2023 Variant lymphocytes/100 WBC (Bld) 1 % 0-12 [facility] WBC Auto (Bld) [#/Vol]Ordere d By: Brandan Cruz on 04-16-2023 WBC (Bld) [#/Vol] 13.0 10*3/uL 4.1-10.5 [facility] Alanine aminotransferase [En zymatic activity/volume] in Serum or PlasmaOrdered By: Jose M Landry on 04-07-2023 ALT [Catalytic activity/Vol] 11 U/L 7-52 [facility] Albumin [Mass/volume] in Ser um or Plasma by Bromocresol green (BCG) dye binding methoOrdered By: Jose M Landry on 04-07-2023 Albumin BCG dye [Mass/Vol] 3.5 g/dL 3.5-5.7 [facility] Alkaline phosphatase [Enzyma tic activity/volume] in Serum or PlasmaOrdered By: Jose M Landry on 04-07-2023 ALP [Catalytic activity/Vol] 125 U/L 34-104 [facility] Aspartate aminotransferase [ Enzymatic activity/volume] in Serum or PlasmaOrdered By: Jose M Landry on 04-07-2023 AST [Catalytic activity/Vol] 21 U/L 13-39 [facility] Basophils Auto (Bld) [#/Vol] Ordered By: Jose M Landry on 04-07-2023 Basophils (Bld) [#/Vol] 0.1 10*3/uL 0.0-0.2 [facility] Basophils/100 WBC Auto (Bld) Ordered By: Jose M Landry on 04-07-2023 Basophils/100 WBC (Bld) 1.2 % . [facility] Bilirubin.total [Mass/volume ] in Serum or PlasmaOrdered By: Jose M Landry on 04-07-2023 Bilirubin [Mass/Vol] 0.3 mg/dL 0.3-1.0 [facility] Calcium [Mass/volume] in Ser um or PlasmaOrdered By: Jose M Landry on 04-07-2023 Calcium [Mass/Vol] 7.6 mg/dL 8.6-10.3 [facility] Carbon dioxide, total [Moles /volume] in Serum or PlasmaOrdered By: Jose M Landry on 04-07-2023 CO2 [Moles/Vol] 22.1 mmol/L 21.0-31.0 [facility] Chloride [Moles/volume] in S leti or PlasmaOrdered By: Jose M Landry on 04-07-2023 Chloride [Moles/Vol] 107 mmol/L 98-107 [facility] Creatinine [Mass/volume] in Serum or PlasmaOrdered By: Jose M Landry on 04-07-2023 Creatinine [Mass/Vol] 6.56 mg/dL 0.70-1.30 [facility] Eosinophils Auto (Bld) [#/Vo l]Ordered By: Jose M Landry on 04-07-2023 Eosinophils (Bld) [#/Vol] 0.4 10*3/uL 0.0-0.45 [facility] Eosinophils/100 WBC Auto (Bl d)Ordered By: Jose M Landry on 04-07-2023 Eosinophils/100 WBC (Bld) 3.8 % . [facility] Erythrocyte distribution wid th Auto (RBC) [Ratio]Ordered By: Jose M Landry on 04-07-2023 Erythrocyte distribution width (RBC) [Ratio] 19.0 % 12.0-14.8 [facility] Globulin Calc (S) [Mass/Vol] Ordered By: Jose M Landry on 04-07-2023 Globulin (S) [Mass/Vol] 4.6 g/dL [facility] Glucose [Mass/volume] in Ser um or PlasmaOrdered By: Jose M Landry on 04-07-2023 Glucose [Mass/Vol] 191 mg/dL 70-100 [facility] Comment on above: ADA recommended refe rence rangeRandom Glucose Reference Range is dependent on time and content of last meal. Glucose of more than 200 mg/dL in a nonstressed, ambulatory subject supports the diagnosis of Diabetes Mellitus. Hematocrit Auto (Bld) [Volum e fraction]Ordered By: Jose M Landry on 04-07-2023 Hematocrit (Bld) [Volume fraction] 28.7 % 38.8-50.0 [facility] Hemoglobin [Mass/volume] in BloodOrdered By: Jose M Landry on 04-07-2023 Hemoglobin (Bld) [Mass/Vol] 9.2 g/dL 13.0-17.0 [facility] Leukocytes [#/volume] correc lakesha for nucleated erythrocytes in Blood by Automated counOrdered By: Jose M Landry on 04-07-2023 WBC corrected for nucl RBC Auto (Bld) [#/Vol] 9.5 10*3/uL 4.1-10.5 [facility] Lymphocytes Auto (Bld) [#/Vo l]Ordered By: Jose M Landry on 04-07-2023 Lymphocytes (Bld) [#/Vol] 3.0 10*3/uL 1.00-4.8 [facility] Lymphocytes/100 WBC Auto (Bl d)Ordered By: Jose M Landry on 04-07-2023 Lymphocytes/100 WBC (Bld) 31.9 % . [facility] MCH Auto (RBC) [Entitic mass ]Ordered By: Jose M Landry on 04-07-2023 MCH (RBC) [Entitic mass] 31.2 pg 27.5-35.2 [facility] MCHC Auto (RBC) [Mass/Vol]Or dered By: Jose M Landry on 04-07-2023 MCHC (RBC) [Mass/Vol] 32.0 g/dL 32.5-35.6 [facility] MCV Auto (RBC) [Entitic vol] Ordered By: Jose M Landry on 04-07-2023 MCV (RBC) [Entitic vol] 97.5 fL 83.5-101 [facility] Monocytes Auto (Bld) [#/Vol] Ordered By: Jose M Landry on 04-07-2023 Monocytes (Bld) [#/Vol] 0.9 10*3/uL 0.0-0.8 [facility] Monocytes/100 WBC Auto (Bld) Ordered By: Jose M Landry on 04-07-2023 Monocytes/100 WBC (Bld) 9.6 % . [facility] Neutrophils Auto (Bld) [#/Vo l]Ordered By: Jose M Landry on 04-07-2023 Neutrophils (Bld) [#/Vol] 5.1 10*3/uL 1.8-7.7 [facility] Neutrophils/100 WBC Auto (Bl d)Ordered By: Jose M Landry on 04-07-2023 Neutrophils/100 WBC (Bld) 53.5 % . [facility] No Panel InformationOrdered By: Jose M Landry on 04-07-2023 Estimated GFR (CKD-EPI) 8.317 mL/Min [facility] Creatinine Clearance (Chem 13.17 [facility] 8.317 mL/Min [facility] 13.17 [facility] Nucleated erythrocytes [Pres ence] in Blood by Automated countOrdered By: Jose M Landry on 04-07-2023 Nucleated RBC Auto Ql (Bld) 0.8 /100{WBC} 0-0.5 [facility] Parathyrin.intact [Mass/volu me] in Serum or PlasmaOrdered By: Johan Taylor on 04-07-2023 Parathyrin.intact [Mass/Vol] 436.4 pg/mL 12 [facility] Phosphate [Mass/volume] in S leti or PlasmaOrdered By: Johan Taylor on 04-07-2023 Phosphate [Mass/Vol] 6.4 mg/dL 2.5-4.5 [facility] Platelet mean volume Auto (B ld) [Entitic vol]Ordered By: Jose M Landry on 04-07-2023 Platelet mean volume (Bld) [Entitic vol] 10.4 fL 6.6-10.1 [facility] Platelets Auto (Bld) [#/Vol] Ordered By: Jose M Landry on 04-07-2023 Platelets (Bld) [#/Vol] 280 10*3/uL 150-450 [facility] Potassium [Moles/volume] in Serum or PlasmaOrdered By: Jose M Landry on 04-07-2023 Potassium [Moles/Vol] 5.7 mmol/L 3.5-5.1 [facility] Protein [Mass/volume] in Ser um or PlasmaOrdered By: Jose M Landry on 04-07-2023 Protein [Mass/Vol] 8.1 g/dL 6.4-8.9 [facility] RBC Auto (Bld) [#/Vol]Ordere d By: Jose M Landry on 04-07-2023 RBC (Bld) [#/Vol] 2.94 10*6/uL 3.90-5.60 [facility] Serum or plasma albumin/glob ulin mass ratioOrdered By: Jose M Landry on 04-07-2023 Albumin/Globulin [Mass ratio] 0.8 {ratio} [facility] Serum or plasma anion gap de terminationOrdered By: Jose M Landry on 04-07-2023 Anion gap [Moles/Vol] 17.6 mmol/L 6.0-15.0 [facility] Sodium [Moles/volume] in Ser um or PlasmaOrdered By: Jose M Landry on 04-07-2023 Sodium [Moles/Vol] 141 mmol/L 136-145 [facility] Urea nitrogen [Mass/volume] in Serum or PlasmaOrdered By: Jose M Landry on 04-07-2023 Urea nitrogen [Mass/Vol] 56 mg/dL 7-25 [facility] WBC Auto (Bld) [#/Vol]Ordere d By: Jose M Landry on 04-07-2023 WBC (Bld) [#/Vol] 9.5 10*3/uL 4.1-10.5 [facility] Alanine aminotransferase [En zymatic activity/volume] in Serum or PlasmaOrdered By: Fawad Rocha on 04-02-2023 ALT [Catalytic activity/Vol] 12 U/L 7-52 [facility] Albumin [Mass/volume] in Ser um or Plasma by Bromocresol green (BCG) dye binding methoOrdered By: Fawad Rocha on 04-02-2023 Albumin BCG dye [Mass/Vol] 3.5 g/dL 3.5-5.7 [facility] Alkaline phosphatase [Enzyma tic activity/volume] in Serum or PlasmaOrdered By: Fawad Rocha on 04-02-2023 ALP [Catalytic activity/Vol] 138 U/L 34-104 [facility] Anisocytosis LM Ql (Bld)Orde red By: Fawad Rocha on 04-02-2023 Anisocytosis Ql (Bld) Moderate [facility] Aspartate aminotransferase [ Enzymatic activity/volume] in Serum or PlasmaOrdered By: Fawad Rocha on 04-02-2023 AST [Catalytic activity/Vol] 19 U/L 13-39 [facility] Basophils Auto (Bld) [#/Vol] Ordered By: Fawad Rocha on 04-02-2023 Basophils (Bld) [#/Vol] N/A [facility] Basophils/100 WBC Auto (Bld) Ordered By: Fawad Rocha on 04-02-2023 Basophils/100 WBC (Bld) N/A [facility] Bilirubin.total [Mass/volume ] in Serum or PlasmaOrdered By: Fawad Rocha on 04-02-2023 Bilirubin [Mass/Vol] 0.2 mg/dL 0.3-1.0 [facility] Calcium [Mass/volume] in Ser um or PlasmaOrdered By: Fawad Rocha on 04-02-2023 Calcium [Mass/Vol] 7.4 mg/dL 8.6-10.3 [facility] Carbon dioxide, total [Moles /volume] in Serum or PlasmaOrdered By: Fawad Rocha on 04-02-2023 CO2 [Moles/Vol] 23.4 mmol/L 21.0-31.0 [facility] Chloride [Moles/volume] in S leti or PlasmaOrdered By: Fawad Rocha on 04-02-2023 Chloride [Moles/Vol] 108 mmol/L 98-107 [facility] Creatinine [Mass/volume] in Serum or PlasmaOrdered By: Fawad Rocha on 04-02-2023 Creatinine [Mass/Vol] 5.55 mg/dL 0.70-1.30 [facility] Eosinophils Auto (Bld) [#/Vo l]Ordered By: Fawad Rocha on 04-02-2023 Eosinophils (Bld) [#/Vol] N/A [facility] Eosinophils/100 WBC Auto (Bl d)Ordered By: Fawad Rocha on 04-02-2023 Eosinophils/100 WBC (Bld) N/A [facility] Eosinophils/100 WBC Manual c nt (Bld)Ordered By: Fawad Rocha on 04-02-2023 Eosinophils/100 WBC (Bld) 6 % 1-3 [facility] Erythrocyte distribution wid th Auto (RBC) [Ratio]Ordered By: Fawad Rocha on 04-02-2023 Erythrocyte distribution width (RBC) [Ratio] 15.9 % 12.0-14.8 [facility] Giant platelets/100 leukocyt es [Ratio] in Blood by Manual countOrdered By: Fawad Rocha on 04-02-2023 Giant platelets/100 WBC Manual cnt (Bld) [Ratio] 1 /100{WBC} [facility] Globulin Calc (S) [Mass/Vol] Ordered By: Fawad Rocha on 04-02-2023 Globulin (S) [Mass/Vol] 4.5 g/dL [facility] Glucose [Mass/volume] in Ser um or PlasmaOrdered By: Fawad Rocha on 04-02-2023 Glucose [Mass/Vol] 95 mg/dL 70-100 [facility] Comment on above: ADA recommended refe rence rangeRandom Glucose Reference Range is dependent on time and content of last meal. Glucose of more than 200 mg/dL in a nonstressed, ambulatory subject supports the diagnosis of Diabetes Mellitus. Hematocrit Auto (Bld) [Volum e fraction]Ordered By: Fawad Rocha on 04-02-2023 Hematocrit (Bld) [Volume fraction] 23.3 % 38.8-50.0 [facility] Hemoglobin [Mass/volume] in BloodOrdered By: Fawad Rocha on 04-02-2023 Hemoglobin (Bld) [Mass/Vol] 7.5 g/dL 13.0-17.0 [facility] Hypochromia LM Ql (Bld)Order ed By: Fawad Rocha on 04-02-2023 Hypochromia Ql (Bld) Slight [facility] Leukocytes [#/volume] correc lakesha for nucleated erythrocytes in Blood by Automated counOrdered By: Fawad Rocha on 04-02-2023 WBC corrected for nucl RBC Auto (Bld) [#/Vol] 13.7 10*3/uL 4.1-10.5 [facility] Lymphocytes Auto (Bld) [#/Vo l]Ordered By: Fawad Rocha on 04-02-2023 Lymphocytes (Bld) [#/Vol] N/A [facility] Lymphocytes/100 WBC Auto (Bl d)Ordered By: Fawad Rocha on 04-02-2023 Lymphocytes/100 WBC (Bld) N/A [facility] Lymphocytes/100 WBC Manual c nt (Bld)Ordered By: Fawad Rocha on 04-02-2023 Lymphocytes/100 WBC (Bld) 31 % 18-42 [facility] MCH Auto (RBC) [Entitic mass ]Ordered By: Fawad Rocha on 04-02-2023 MCH (RBC) [Entitic mass] 31.0 pg 27.5-35.2 [facility] MCHC Auto (RBC) [Mass/Vol]Or dered By: Fawad Rocha on 04-02-2023 MCHC (RBC) [Mass/Vol] 32.3 g/dL 32.5-35.6 [facility] MCV Auto (RBC) [Entitic vol] Ordered By: Fawad Rocha on 04-02-2023 MCV (RBC) [Entitic vol] 95.9 fL 83.5-101 [facility] Monocytes Auto (Bld) [#/Vol] Ordered By: Fawad Rocha on 04-02-2023 Monocytes (Bld) [#/Vol] N/A [facility] Monocytes/100 WBC Auto (Bld) Ordered By: Fawad Rocha on 04-02-2023 Monocytes/100 WBC (Bld) N/A [facility] Monocytes/100 WBC Manual cnt (Bld)Ordered By: Fawad Rocha on 04-02-2023 Monocytes/100 WBC (Bld) 15 % 2-11 [facility] Neutrophils Auto (Bld) [#/Vo l]Ordered By: Fawad Rocha on 04-02-2023 Neutrophils (Bld) [#/Vol] N/A [facility] Neutrophils/100 WBC Auto (Bl d)Ordered By: Fawad Rocha on 04-02-2023 Neutrophils/100 WBC (Bld) N/A [facility] No Panel InformationOrdered By: Fawad Rocha on 04-02-2023 Estimated GFR (CKD-EPI) 10.163 mL/Min [facility] Creatinine Clearance (Chem N/A [facility] 10.163 mL/Min [facility] N/A [facility] Nucleated RBC/100 WBC Manual cnt (Bld) [Ratio]Ordered By: Fawad Rocha on 04-02-2023 Nucleated RBC/100 WBC (Bld) [Ratio] 1 /100{WBC} 0-0 [facility] Nucleated erythrocytes [Pres ence] in Blood by Automated countOrdered By: Fawad Rocha on 04-02-2023 Nucleated RBC Auto Ql (Bld) N/A [facility] Platelet adequacy [Presence] in Blood by Light microscopyOrdered By: Fawad Rocha on 04-02-2023 Platelets LM Ql (Bld) Normal Normal [facility] Platelet mean volume Auto (B ld) [Entitic vol]Ordered By: Fawad Rocha on 04-02-2023 Platelet mean volume (Bld) [Entitic vol] 10.1 fL 6.6-10.1 [facility] Platelet morphology finding [Identifier] in BloodOrdered By: Fawad Rocha on 04-02-2023 Platelet morphology finding Nom (Bld) N/A [facility] Platelets Auto (Bld) [#/Vol] Ordered By: Fawad Rocha on 04-02-2023 Platelets (Bld) [#/Vol] 257 10*3/uL 150-450 [facility] Platelets Large [Presence] i n Blood by Light microscopyOrdered By: Fawad Rocha on 04-02-2023 Platelets Large LM Ql (Bld) Slight [facility] Polychromasia [Presence] in Blood by Light microscopyOrdered By: Fawad Rocha on 04-02-2023 Polychromasia LM Ql (Bld) Slight [facility] Potassium [Moles/volume] in Serum or PlasmaOrdered By: Fawad Rocha on 04-02-2023 Potassium [Moles/Vol] 4.8 mmol/L 3.5-5.1 [facility] Protein [Mass/volume] in Ser um or PlasmaOrdered By: Fawad Rocha on 04-02-2023 Protein [Mass/Vol] 8.0 g/dL 6.4-8.9 [facility] RBC Auto (Bld) [#/Vol]Ordere d By: Fawad Rocha on 04-02-2023 RBC (Bld) [#/Vol] 2.43 10*6/uL 3.90-5.60 [facility] RBC morphologyOrdered By: Nils Rocha on 04-02-2023 RBC morphology finding Nom (Bld) N/A [facility] Segmented neutrophils/100 WB C Manual cnt (Bld)Ordered By: Fawad Rocha on 04-02-2023 Segmented neutrophils/100 WBC (Bld) 49 % 50-70 [facility] Serum or plasma albumin/glob ulin mass ratioOrdered By: Fawad Rocha on 04-02-2023 Albumin/Globulin [Mass ratio] 0.8 {ratio} [facility] Serum or plasma anion gap de terminationOrdered By: Fawad Rocha on 04-02-2023 Anion gap [Moles/Vol] 13.4 mmol/L 6.0-15.0 [facility] Sodium [Moles/volume] in Ser um or PlasmaOrdered By: Fawad Rocha on 04-02-2023 Sodium [Moles/Vol] 140 mmol/L 136-145 [facility] Target cellsOrdered By: Jesús Rocha on 04-02-2023 Target cells LM Ql (Bld) Moderate [facility] Urea nitrogen [Mass/volume] in Serum or PlasmaOrdered By: Fawad Rocha on 04-02-2023 Urea nitrogen [Mass/Vol] 47 mg/dL 7-25 [facility] WBC Auto (Bld) [#/Vol]Ordere d By: Fawad Rocha on 04-02-2023 WBC (Bld) [#/Vol] 13.7 10*3/uL 4.1-10.5 [facility] Alanine aminotransferase [En zymatic activity/volume] in Serum or PlasmaOrdered By: Jose M Landry on 03-19-2023 ALT [Catalytic activity/Vol] 9 U/L -52 [facility] Albumin [Mass/volume] in Ser um or Plasma by Bromocresol green (BCG) dye binding methoOrdered By: Jose M Landry on 03-19-2023 Albumin BCG dye [Mass/Vol] 3.2 g/dL 3.5-5.7 [facility] Alkaline phosphatase [Enzyma tic activity/volume] in Serum or PlasmaOrdered By: Jose M Landry on 03-19-2023 ALP [Catalytic activity/Vol] 117 U/L 34-104 [facility] Aspartate aminotransferase [ Enzymatic activity/volume] in Serum or PlasmaOrdered By: Jose M Landry on 03-19-2023 AST [Catalytic activity/Vol] 16 U/L 13-39 [facility] Basophils Auto (Bld) [#/Vol] Ordered By: Jose M Landry on 03-19-2023 Basophils (Bld) [#/Vol] 0.1 10*3/uL 0.0-0.2 [facility] Basophils/100 WBC Auto (Bld) Ordered By: Jose M Landry on 03-19-2023 Basophils/100 WBC (Bld) 0.9 % . [facility] Bilirubin.total [Mass/volume ] in Serum or PlasmaOrdered By: Jose M Landry on 03-19-2023 Bilirubin [Mass/Vol] 0.2 mg/dL 0.3-1.0 [facility] Calcium [Mass/volume] in Ser um or PlasmaOrdered By: Jose M Landry 03-19-2023 Calcium [Mass/Vol] 7.3 mg/dL 8.6-10.3 [facility] Carbon dioxide, total [Moles /volume] in Serum or PlasmaOrdered By: Jose M Landry on 03-19-2023 CO2 [Moles/Vol] 25.3 mmol/L 21.0-31.0 [facility] Chloride [Moles/volume] in S leti or PlasmaOrdered By: Jose M Landry on 03-19-2023 Chloride [Moles/Vol] 108 mmol/L 98-107 [facility] Creatinine [Mass/volume] in Serum or PlasmaOrdered By: Jose M Landry on 03-19-2023 Creatinine [Mass/Vol] 5.00 mg/dL 0.70-1.30 [facility] Eosinophils Auto (Bld) [#/Vo l]Ordered By: Jose M Landry on 03-19-2023 Eosinophils (Bld) [#/Vol] 0.5 10*3/uL 0.0-0.45 [facility] Eosinophils/100 WBC Auto (Bl d)Ordered By: Jose M Landry on 03-19-2023 Eosinophils/100 WBC (Bld) 4.9 % . [facility] Erythrocyte distribution wid th Auto (RBC) [Ratio]Ordered By: Jose M Landry on 03-19-2023 Erythrocyte distribution width (RBC) [Ratio] 16.1 % 12.0-14.8 [facility] Globulin Calc (S) [Mass/Vol] Ordered By: Jose M Landry on 03-19-2023 Globulin (S) [Mass/Vol] 4.0 g/dL [facility] Glucose [Mass/volume] in Ser um or PlasmaOrdered By: Jose M Landry on 03-19-2023 Glucose [Mass/Vol] 118 mg/dL 70-100 [facility] Comment on above: ADA recommended refe rence rangeRandom Glucose Reference Range is dependent on time and content of last meal. Glucose of more than 200 mg/dL in a nonstressed, ambulatory subject supports the diagnosis of Diabetes Mellitus. Hematocrit Auto (Bld) [Volum e fraction]Ordered By: Jose M Landry on 03-19-2023 Hematocrit (Bld) [Volume fraction] 23.9 % 38.8-50.0 [facility] Hemoglobin [Mass/volume] in BloodOrdered By: Jose M Landry on 03-19-2023 Hemoglobin (Bld) [Mass/Vol] 7.8 g/dL 13.0-17.0 [facility] Leukocytes [#/volume] correc lakesha for nucleated erythrocytes in Blood by Automated counOrdered By: Jose M Landry on 03-19-2023 WBC corrected for nucl RBC Auto (Bld) [#/Vol] 9.9 10*3/uL 4.1-10.5 [facility] Lymphocytes Auto (Bld) [#/Vo l]Ordered By: Jose M Landry on 03-19-2023 Lymphocytes (Bld) [#/Vol] 3.9 10*3/uL 1.00-4.8 [facility] Lymphocytes/100 WBC Auto (Bl d)Ordered By: Jose M Landry on 03-19-2023 Lymphocytes/100 WBC (Bld) 40.0 % . [facility] MCH Auto (RBC) [Entitic mass ]Ordered By: Jose M Landry on 03-19-2023 MCH (RBC) [Entitic mass] 30.5 pg 27.5-35.2 [facility] [facility] MCHC Auto (RBC) [Mass/Vol]Or dered By: Jose M Landry on 03-19-2023 MCHC (RBC) [Mass/Vol] 32.8 g/dL 32.5-35.6 [facility] MCV Auto (RBC) [Entitic vol] Ordered By: Jose M Landry on 03-19-2023 MCV (RBC) [Entitic vol] 93.0 fL 83.5-101 [facility] Monocytes Auto (Bld) [#/Vol] Ordered By: Jose M Landry on 03-19-2023 Monocytes (Bld) [#/Vol] 0.8 10*3/uL 0.0-0.8 [facility] Monocytes/100 WBC Auto (Bld) Ordered By: Jose M Landry on 03-19-2023 Monocytes/100 WBC (Bld) 8.5 % . [facility] Neutrophils Auto (Bld) [#/Vo l]Ordered By: Jose M Landry on 03-19-2023 Neutrophils (Bld) [#/Vol] 4.5 10*3/uL 1.8-7.7 [facility] Neutrophils/100 WBC Auto (Bl d)Ordered By: Jose M Landry on 03-19-2023 Neutrophils/100 WBC (Bld) 45.7 % . [facility] No Panel InformationOrdered By: Jose M Landry on 03-19-2023 Estimated GFR (CKD-EPI) 11.592 mL/Min [facility] Creatinine Clearance (Chem N/A [facility] 11.592 mL/Min [facility] N/A [facility] Nucleated erythrocytes [Pres ence] in Blood by Automated countOrdered By: JoseM Landry on 03-19-2023 Nucleated RBC Auto Ql (Bld) 0.1 /100{WBC} 0-0.5 [facility] Platelet mean volume Auto (B ld) [Entitic vol]Ordered By: Jose M Landry on 03-19-2023 Platelet mean volume (Bld) [Entitic vol] 10.8 fL 6.6-10.1 [facility] Platelets Auto (Bld) [#/Vol] Ordered By: Jose M Landry on 03-19-2023 Platelets (Bld) [#/Vol] 207 10*3/uL 150-450 [facility] Potassium [Moles/volume] in Serum or PlasmaOrdered By: Jose M Landry on 03-19-2023 Potassium [Moles/Vol] 4.5 mmol/L 3.5-5.1 [facility] Protein [Mass/volume] in Ser um or PlasmaOrdered By: Jose M Landry on 03-19-2023 Protein [Mass/Vol] 7.2 g/dL 6.4-8.9 [facility] RBC Auto (Bld) [#/Vol]Ordere d By: Jose M Landry on 03-19-2023 RBC (Bld) [#/Vol] 2.57 10*6/uL 3.90-5.60 [facility] Serum or plasma albumin/glob ulin mass ratioOrdered By: Jose M Landry on 03-19-2023 Albumin/Globulin [Mass ratio] 0.8 {ratio} [facility] Serum or plasma anion gap de terminationOrdered By: Jose M Landry on 03-19-2023 Anion gap [Moles/Vol] 13.2 mmol/L 6.0-15.0 [facility] Sodium [Moles/volume] in Ser um or PlasmaOrdered By: Jose M Landry on 03-19-2023 Sodium [Moles/Vol] 142 mmol/L 136-145 [facility] Urea nitrogen [Mass/volume] in Serum or PlasmaOrdered By: Jose M Landry on 03-19-2023 Urea nitrogen [Mass/Vol] 48 mg/dL 7-25 [facility] WBC Auto (Bld) [#/Vol]Ordere d By: Jose M Landry on 03-19-2023 WBC (Bld) [#/Vol] 9.9 10*3/uL 4.1-10.5 [facility] Cholesterol [Mass/volume] in Serum or PlasmaOrdered By: Mervat Santiago on 03-13-2023 Cholesterol [Mass/Vol] 123 mg/dL 140-200 [facility] Comment on above: Chol less than 200 m g/dl low riskChol 201-239 mg/dl borderline riskChol 240 mg/dl and greater high risk Cholesterol in LDL Calc [Mas s/Vol]Ordered By: Mervat Santiago on 03-13-2023 Cholesterol in LDL [Mass/Vol] 43 mg/dL 0-100 [facility] Comment on above: LDL ATP III CLASSIFI CATIONLDL less than 100 mg/dL OptimalLDL 100-129 mg/dL Near or above optimalLDL 130-159 mg/dL Borderline highLDL 160-189 mg/dL HighLDL greater than 189 mg/dL Very high Cholesterol in VLDL Calc [Ma ss/Vol]Ordered By: Mervat Santiago on 03-13-2023 Cholesterol in VLDL [Mass/Vol] 13 mg/dL [facility] Serum or plasma high density lipoprotein (HDL) cholesterol measurementOrdered By: Mervat Santiago on 03-13-2023 Cholesterol in HDL [Mass/Vol] 66 mg/dL 23-92 [facility] Comment on above: HDL CHOL ATP-III CLA SSIFICATION Cardiovascular RiskHDL > or equal to 60 mg/dL LOWHDL < 40 mg/dL HIGH Serum or plasma total choles terol/high density lipoprotein (HDL) cholesterol mass ratOrdered By: Mervat Santiago on 03-13-2023 Cholesterol.total/Aleja sterol in HDL [Mass ratio] 1.9 {ratio} <5.0 [facility] Thyrotropin [Units/volume] i n Serum or PlasmaOrdered By: Mervat Santiago on 03-13-2023 TSH Qn 5.24 m[IU]/L 0.45-5.33 [facility] Triglyceride [Mass/volume] i n Serum or PlasmaOrdered By: Mervat Santiago on 03-13-2023 Triglyceride [Mass/Vol] 69 mg/dL 0-149 [facility] Comment on above: TRIG ATP III CLASSIF ICATIONTRIG less than 150 mg/dL NormalTRIG 150-199 mg/dL Borderline highTRIG 200-500 mg/dL High TRIG greater than 500 mg/dL Very highStandard traceable to the Center for Disease Conrtrol and Prevention (CDC) test method. Vitamin D+Metabolites [Mass/ volume] in Serum or PlasmaOrdered By: Mervat Santiago on 03-13-2023 Vitamin D+Metabolites [Mass/Vol] See comment 30-100 [facility] Comment on above: Specimen hemolyzed, redraw requestedVITAMIN D STATUS 25(OH)VITAMIN D RANGE (ng/mL) Deficient <20 Insufficient 20 to <30Sufficient 30 to 100Reference: Waylon MF,Xavier SUMNER, [place] RIOS, et al. Evaluation,treatment, and prevention of vitamin D deficiency; an Endocrine Society clinical practice guideline. JCEM. 2010; 96(7):1911-30. Alanine aminotransferase [En zymatic activity/volume] in Serum or PlasmaOrdered By: Jose M Landry on 03-04-2023 ALT [Catalytic activity/Vol] 10 U/L 7-52 [facility] Albumin [Mass/volume] in Ser um or Plasma by Bromocresol green (BCG) dye binding methoOrdered By: Jose M Landry on 03-04-2023 Albumin BCG dye [Mass/Vol] 3.4 g/dL 3.5-5.7 [facility] Alkaline phosphatase [Enzyma tic activity/volume] in Serum or PlasmaOrdered By: Jose M Landry on 03-04-2023 ALP [Catalytic activity/Vol] 157 U/L 34-104 [facility] Aspartate aminotransferase [ Enzymatic activity/volume] in Serum or PlasmaOrdered By: Jose M Landry on 03-04-2023 AST [Catalytic activity/Vol] 16 U/L 13-39 [facility] Basophils Auto (Bld) [#/Vol] Ordered By: Jose M Landry on 03-04-2023 Basophils (Bld) [#/Vol] 0.1 10*3/uL 0.0-0.2 [facility] Basophils/100 WBC Auto (Bld) Ordered By: Jose M Landry on 03-04-2023 Basophils/100 WBC (Bld) 1.1 % . [facility] Bilirubin.total [Mass/volume ] in Serum or PlasmaOrdered By: Jose M Landry on 03-04-2023 Bilirubin [Mass/Vol] 0.3 mg/dL 0.3-1.0 [facility] Calcium [Mass/volume] in Ser um or PlasmaOrdered By: Jose M Landry on 03-04-2023 Calcium [Mass/Vol] 7.6 mg/dL 8.6-10.3 [facility] Carbon dioxide, total [Moles /volume] in Serum or PlasmaOrdered By: Jose M Landry on 03-04-2023 CO2 [Moles/Vol] 23.4 mmol/L 21.0-31.0 [facility] Chloride [Moles/volume] in S leti or PlasmaOrdered By: Jose M Landry on 03-04-2023 Chloride [Moles/Vol] 107 mmol/L 98-107 [facility] Creatinine [Mass/volume] in Serum or PlasmaOrdered By: Jose M Landry on 03-04-2023 Creatinine [Mass/Vol] 4.93 mg/dL 0.70-1.30 [facility] Eosinophils Auto (Bld) [#/Vo l]Ordered By: Jose M Landry on 03-04-2023 Eosinophils (Bld) [#/Vol] 0.7 10*3/uL 0.0-0.45 [facility] Eosinophils/100 WBC Auto (Bl d)Ordered By: Jose M Landry on 03-04-2023 Eosinophils/100 WBC (Bld) 5.3 % . [facility] Erythrocyte distribution wid th Auto (RBC) [Ratio]Ordered By: Jose M Landry on 03-04-2023 Erythrocyte distribution width (RBC) [Ratio] 16.2 % 12.0-14.8 [facility] Globulin Calc (S) [Mass/Vol] Ordered By: Jose M Landry on 03-04-2023 Globulin (S) [Mass/Vol] 4.2 g/dL [facility] Glucose [Mass/volume] in Ser um or PlasmaOrdered By: Jose M Landry on 03-04-2023 Glucose [Mass/Vol] 88 mg/dL 70-100 [facility] Comment on above: ADA recommended refe rence rangeRandom Glucose Reference Range is dependent on time and content of last meal. Glucose of more than 200 mg/dL in a nonstressed, ambulatory subject supports the diagnosis of Diabetes Mellitus. Hematocrit Auto (Bld) [Volum e fraction]Ordered By: Jose M Landry on 03-04-2023 Hematocrit (Bld) [Volume fraction] 26.6 % 38.8-50.0 [facility] Hemoglobin [Mass/volume] in BloodOrdered By: Jose M Landry on 03-04-2023 Hemoglobin (Bld) [Mass/Vol] 8.6 g/dL 13.0-17.0 [facility] Leukocytes [#/volume] correc lakesha for nucleated erythrocytes in Blood by Automated counOrdered By: Jose M Landry on 03-04-2023 WBC corrected for nucl RBC Auto (Bld) [#/Vol] 13.1 10*3/uL 4.1-10.5 [facility] Lymphocytes Auto (Bld) [#/Vo l]Ordered By: Jose M Landry on 03-04-2023 Lymphocytes (Bld) [#/Vol] 4.9 10*3/uL 1.00-4.8 [facility] Lymphocytes/100 WBC Auto (Bl d)Ordered By: JoseM Landry on 03-04-2023 Lymphocytes/100 WBC (Bld) 37.1 % . [facility] MCH Auto (RBC) [Entitic mass ]Ordered By: Jose M Landry on 03-04-2023 MCH (RBC) [Entitic mass] 30.0 pg 27.5-35.2 [facility] MCHC Auto (RBC) [Mass/Vol]Or dered By: Jose M Landry on 03-04-2023 MCHC (RBC) [Mass/Vol] 32.4 g/dL 32.5-35.6 [facility] MCV Auto (RBC) [Entitic vol] Ordered By: Jose M Landry on 03-04-2023 MCV (RBC) [Entitic vol] 92.7 fL 83.5-101 [facility] Monocytes Auto (Bld) [#/Vol] Ordered By: Jose M Landry on 03-04-2023 Monocytes (Bld) [#/Vol] 1.3 10*3/uL 0.0-0.8 [facility] Monocytes/100 WBC Auto (Bld) Ordered By: Jose M Landry on 03-04-2023 Monocytes/100 WBC (Bld) 9.9 % . [facility] Neutrophils Auto (Bld) [#/Vo l]Ordered By: Jose M Landry on 03-04-2023 Neutrophils (Bld) [#/Vol] 6.1 10*3/uL 1.8-7.7 [facility] Neutrophils/100 WBC Auto (Bl d)Ordered By: Jose M Landry on 03-04-2023 Neutrophils/100 WBC (Bld) 46.6 % . [facility] No Panel InformationOrdered By: Jose M Landry on 03-04-2023 Estimated GFR (CKD-EPI) 11.789 mL/Min [facility] Creatinine Clearance (Chem 17.79 [facility] Nucleated erythrocytes [Pres ence] in Blood by Automated countOrdered By: Jose M Landry on 03-04-2023 Nucleated RBC Auto Ql (Bld) 0.1 /100{WBC} 0-0.5 [facility] Platelet mean volume Auto (B ld) [Entitic vol]Ordered By: Jose M Landry on 03-04-2023 Platelet mean volume (Bld) [Entitic vol] 10.8 fL 6.6-10.1 [facility] Platelets Auto (Bld) [#/Vol] Ordered By: Jose M Landry on 03-04-2023 Platelets (Bld) [#/Vol] 197 10*3/uL 150-450 [facility] Potassium [Moles/volume] in Serum or PlasmaOrdered By: Jose M Landry on 03-04-2023 Potassium [Moles/Vol] 5.3 mmol/L 3.5-5.1 [facility] Protein [Mass/volume] in Ser um or PlasmaOrdered By: Jose M Landry on 03-04-2023 Protein [Mass/Vol] 7.6 g/dL 6.4-8.9 [facility] RBC Auto (Bld) [#/Vol]Ordere d By: Jose M Landry on 03-04-2023 RBC (Bld) [#/Vol] 2.88 10*6/uL 3.90-5.60 [facility] Serum or plasma albumin/glob ulin mass ratioOrdered By: Jose M Landry on 03-04-2023 Albumin/Globulin [Mass ratio] 0.8 {ratio} [facility] Serum or plasma anion gap de terminationOrdered By: Jose M Landry on 03-04-2023 Anion gap [Moles/Vol] 14.9 mmol/L 6.0-15.0 [facility] Sodium [Moles/volume] in Ser um or PlasmaOrdered By: Jose M Landry on 03-04-2023 Sodium [Moles/Vol] 140 mmol/L 136-145 [facility] Urea nitrogen [Mass/volume] in Serum or PlasmaOrdered By: Jose M Landry on 03-04-2023 Urea nitrogen [Mass/Vol] 58 mg/dL 7-25 [facility] WBC Auto (Bld) [#/Vol]Ordere d By: Jose M Landry on 03-04-2023 WBC (Bld) [#/Vol] 13.1 10*3/uL 4.1-10.5 [facility] Alanine aminotransferase [En zymatic activity/volume] in Serum or PlasmaOrdered By: Johan Taylor on 02-07-2023 ALT [Catalytic activity/Vol] 14 U/L 7-52 [facility] Albumin [Mass/volume] in Ser um or Plasma by Bromocresol green (BCG) dye binding methoOrdered By: Johan Taylor on 02-07-2023 Albumin BCG dye [Mass/Vol] 3.5 g/dL 3.5-5.7 [facility] Alkaline phosphatase [Enzyma tic activity/volume] in Serum or PlasmaOrdered By: Johan Taylor on 02-07-2023 ALP [Catalytic activity/Vol] 192 U/L 34-104 [facility] Aspartate aminotransferase [ Enzymatic activity/volume] in Serum or PlasmaOrdered By: Johan Taylor 02-07-2023 AST [Catalytic activity/Vol] 25 U/L 13-39 [facility] Bilirubin.total [Mass/volume ] in Serum or PlasmaOrdered By: Johan Taylor 02-07-2023 Bilirubin [Mass/Vol] 0.3 mg/dL 0.3-1.0 [facility] Calcium [Mass/volume] in Ser um or PlasmaOrdered By: Johan Taylor 02-07-2023 Calcium [Mass/Vol] 8.0 mg/dL 8.6-10.3 [facility] Carbon dioxide, total [Moles /volume] in Serum or PlasmaOrdered By: Johan Taylor 02-07-2023 CO2 [Moles/Vol] 24.7 mmol/L 21.0-31.0 [facility] Chloride [Moles/volume] in S leti or PlasmaOrdered By: Johan Taylor 02-07-2023 Chloride [Moles/Vol] 107 mmol/L 98-107 [facility] Creatinine [Mass/volume] in Serum or PlasmaOrdered By: Johan Taylor 02-07-2023 Creatinine [Mass/Vol] 4.80 mg/dL 0.70-1.30 [facility] Creatinine [Mass/volume] in UrineOrdered By: Johan Taylor 02-07-2023 Creatinine (U) [Mass/Vol] 42.0 mg/dL 14.0-26.0 [facility] Erythrocyte distribution wid th Auto (RBC) [Ratio]Ordered By: Johan Taylor 02-07-2023 Erythrocyte distribution width (RBC) [Ratio] 16.6 % 12.0-14.8 [facility] Globulin Calc (S) [Mass/Vol] Ordered By: Johan Taylor 02-07-2023 Globulin (S) [Mass/Vol] 4.2 g/dL [facility] Glucose [Mass/volume] in Ser um or PlasmaOrdered By: Johan Taylor 02-07-2023 Glucose [Mass/Vol] 100 mg/dL 70-100 [facility] Comment on above: ADA recommended refe rence rangeRandom Glucose Reference Range is dependent on time and content of last meal. Glucose of more than 200 mg/dL in a nonstressed, ambulatory subject supports the diagnosis of Diabetes Mellitus. Hematocrit Auto (Bld) [Volum e fraction]Ordered By: Johan Taylor on 02-07-2023 Hematocrit (Bld) [Volume fraction] 30.9 % 38.8-50.0 [facility] Hemoglobin [Mass/volume] in BloodOrdered By: Johan Taylor on 02-07-2023 Hemoglobin (Bld) [Mass/Vol] 9.8 g/dL 13.0-17.0 [facility] Leukocytes [#/volume] correc lakesha for nucleated erythrocytes in Blood by Automated counOrdered By: Johan Taylor on 02-07-2023 WBC corrected for nucl RBC Auto (Bld) [#/Vol] 12.6 10*3/uL 4.1-10.5 [facility] MCH Auto (RBC) [Entitic mass ]Ordered By: Johan Taylor on 02-07-2023 MCH (RBC) [Entitic mass] 29.7 pg 27.5-35.2 [facility] MCHC Auto (RBC) [Mass/Vol]Or dered By: Johan Taylor on 02-07-2023 MCHC (RBC) [Mass/Vol] 31.7 g/dL 32.5-35.6 [facility] MCV Auto (RBC) [Entitic vol] Ordered By: Johan Taylor 02-07-2023 MCV (RBC) [Entitic vol] 93.9 fL 83.5-101 [facility] No Panel InformationOrdered By: Johan Taylor 02-07-2023 Estimated GFR (CKD-EPI) 12.173 mL/Min [facility] Creatinine Clearance (Chem N/A [facility] 12.173 mL/Min [facility] N/A [facility] Parathyrin.intact [Mass/volu me] in Serum or PlasmaOrdered By: Johan Taylor on 02-07-2023 Parathyrin.intact [Mass/Vol] 351.9 pg/mL 12 [facility] Phosphate [Mass/volume] in S leti or PlasmaOrdered By: Johan Taylor 02-07-2023 Phosphate [Mass/Vol] 6.7 mg/dL 3.7-7.2 [facility] Platelet mean volume Auto (B ld) [Entitic vol]Ordered By: Johan Taylor on 02-07-2023 Platelet mean volume (Bld) [Entitic vol] 11.0 fL 6.6-10.1 [facility] Platelets Auto (Bld) [#/Vol] Ordered By: Johan Taylor on 02-07-2023 Platelets (Bld) [#/Vol] 201 10*3/uL 150-450 [facility] Potassium [Moles/volume] in Serum or PlasmaOrdered By: Johan Taylor on 02-07-2023 Potassium [Moles/Vol] 5.1 mmol/L 3.5-5.1 [facility] Protein [Mass/volume] in Ser um or PlasmaOrdered By: Johan Taylor on 02-07-2023 Protein [Mass/Vol] 7.7 g/dL 6.4-8.9 [facility] Protein [Mass/volume] in Uri neOrdered By: Johan Taylor on 02-07-2023 Protein (U) [Mass/Vol] 447 mg/dL 0-9 [facility] RBC Auto (Bld) [#/Vol]Ordere d By: Johan Taylor on 02-07-2023 RBC (Bld) [#/Vol] 3.29 10*6/uL 3.90-5.60 [facility] Serum or plasma albumin/glob ulin mass ratioOrdered By: Johan Taylor on 02-07-2023 Albumin/Globulin [Mass ratio] 0.8 {ratio} [facility] Serum or plasma anion gap de terminationOrdered By: Johan Taylor on 02-07-2023 Anion gap [Moles/Vol] 13.4 mmol/L 6.0-15.0 [facility] Sodium [Moles/volume] in Ser um or PlasmaOrdered By: Johan Taylor on 02-07-2023 Sodium [Moles/Vol] 140 mmol/L 136-145 [facility] Urea nitrogen [Mass/volume] in Serum or PlasmaOrdered By: Johan Taylor on 02-07-2023 Urea nitrogen [Mass/Vol] 49 mg/dL 10-29 [facility] Urine protein/creatinine rat ioOrdered By: Johan Taylor on 02-07-2023 Protein/Creatinine (U) [Ratio] 60605 mg/g{Cre} 0-200 [facility] Anisocytosis LM Ql (Bld)Orde red By: Maddie Dixon on 01-29-2023 Anisocytosis Ql (Bld) Moderate [facility] Basophils Auto (Bld) [#/Vol] Ordered By: Maddie Dixon on 01-29-2023 Basophils (Bld) [#/Vol] N/A [facility] Basophils/100 WBC Auto (Bld) Ordered By: Maddie Dixon on 01-29-2023 Basophils/100 WBC (Bld) N/A [facility] Eosinophils Auto (Bld) [#/Vo l]Ordered By: Maddie Dixon on 01-29-2023 Eosinophils (Bld) [#/Vol] N/A [facility] Eosinophils/100 WBC Auto (Bl d)Ordered By: Maddie Dixon on 01-29-2023 Eosinophils/100 WBC (Bld) N/A [facility] Eosinophils/100 WBC Manual c nt (Bld)Ordered By: Maddie Dixon on 01-29-2023 Eosinophils/100 WBC (Bld) 6 % 1-3 [facility] Erythrocyte distribution wid th Auto (RBC) [Ratio]Ordered By: Maddie Dixon on 01-29-2023 Erythrocyte distribution width (RBC) [Ratio] 16.6 % 12.0-14.8 [facility] Giant platelets/100 leukocyt es [Ratio] in Blood by Manual countOrdered By: Maddie Dixon on 01-29-2023 Giant platelets/100 WBC Manual cnt (Bld) [Ratio] 4 /100{WBC} [facility] Hematocrit Auto (Bld) [Volum e fraction]Ordered By: Maddie Dixon on 01-29-2023 Hematocrit (Bld) [Volume fraction] 31.6 % 38.8-50.0 [facility] Hemoglobin [Mass/volume] in BloodOrdered By: Maddie Dixon on 01-29-2023 Hemoglobin (Bld) [Mass/Vol] 10.2 g/dL 13.0-17.0 [facility] Hypochromia LM Ql (Bld)Order ed By: Maddie Dixon on 01-29-2023 Hypochromia Ql (Bld) Slight [facility] Leukocytes [#/volume] correc lakesha for nucleated erythrocytes in Blood by Automated counOrdered By: Maddie Dixon on 01-29-2023 WBC corrected for nucl RBC Auto (Bld) [#/Vol] 11.0 10*3/uL 4.1-10.5 [facility] Lymphocytes Auto (Bld) [#/Vo l]Ordered By: Maddie Dixon on 01-29-2023 Lymphocytes (Bld) [#/Vol] N/A [facility] Lymphocytes/100 WBC Auto (Bl d)Ordered By: Maddie Dixon on 01-29-2023 Lymphocytes/100 WBC (Bld) N/A [facility] Lymphocytes/100 WBC Manual c nt (Bld)Ordered By: Madide Dixon on 01-29-2023 Lymphocytes/100 WBC (Bld) 40 % 18-42 [facility] MCH Auto (RBC) [Entitic mass ]Ordered By: Maddie Dixon on 01-29-2023 MCH (RBC) [Entitic mass] 30.6 pg 27.5-35.2 [facility] MCHC Auto (RBC) [Mass/Vol]Or dered By: Maddie Dixon on 01-29-2023 MCHC (RBC) [Mass/Vol] 32.4 g/dL 32.5-35.6 [facility] MCV Auto (RBC) [Entitic vol] Ordered By: Maddie Dixon on 01-29-2023 MCV (RBC) [Entitic vol] 94.5 fL 83.5-101 [facility] Monocytes Auto (Bld) [#/Vol] Ordered By: Maddie Dixon on 01-29-2023 Monocytes (Bld) [#/Vol] N/A [facility] Monocytes/100 WBC Auto (Bld) Ordered By: Maddie Dixon on 01-29-2023 Monocytes/100 WBC (Bld) N/A [facility] Monocytes/100 WBC Manual cnt (Bld)Ordered By: Maddie Dixon on 01-29-2023 Monocytes/100 WBC (Bld) 15 % 2-11 [facility] Neutrophils Auto (Bld) [#/Vo l]Ordered By: Maddie Dixon on 01-29-2023 Neutrophils (Bld) [#/Vol] N/A [facility] Neutrophils/100 WBC Auto (Bl d)Ordered By: Maddie Dixon on 01-29-2023 Neutrophils/100 WBC (Bld) N/A [facility] Nucleated erythrocytes [Pres ence] in Blood by Automated countOrdered By: Maddie Dixon on 01-29-2023 Nucleated RBC Auto Ql (Bld) N/A [facility] Platelet adequacy [Presence] in Blood by Light microscopyOrdered By: Maddie Dixon on 01-29-2023 Platelets LM Ql (Bld) Normal Normal [facility] Platelet mean volume Auto (B ld) [Entitic vol]Ordered By: Maddie Dixon on 01-29-2023 Platelet mean volume (Bld) [Entitic vol] 11.0 fL 6.6-10.1 [facility] Platelet morphology finding [Identifier] in BloodOrdered By: Maddie Dixon on 01-29-2023 Platelet morphology finding Nom (Bld) Normal Normal [facility] Platelets Auto (Bld) [#/Vol] Ordered By: Maddie Dixon on 01-29-2023 Platelets (Bld) [#/Vol] 215 10*3/uL 150-450 [facility] Poikilocytosis [Presence] in Blood by Light microscopyOrdered By: Maddie Dixon on 01-29-2023 Poikilocytosis LM Ql (Bld) Slight [facility] Polychromasia [Presence] in Blood by Light microscopyOrdered By: Maddie Dixon on 01-29-2023 Polychromasia LM Ql (Bld) Slight [facility] RBC Auto (Bld) [#/Vol]Ordere d By: Maddie Dixon on 01-29-2023 RBC (Bld) [#/Vol] 3.34 10*6/uL 3.90-5.60 [facility] RBC morphologyOrdered By: Trinity Dixon on 01-29-2023 RBC morphology finding Nom (Bld) N/A [facility] Schistocytes [Presence] in B lood by Light microscopyOrdered By: Maddie Dixon on 01-29-2023 Schistocytes LM Ql (Bld) Slight [facility] Segmented neutrophils/100 WB C Manual cnt (Bld)Ordered By: Maddie Dixon on 01-29-2023 Segmented neutrophils/100 WBC (Bld) 38 % 50-70 [facility] Target cellsOrdered By: Maddie Dixon on 01-29-2023 Target cells LM Ql (Bld) Moderate [facility] Variant lymphocytes/100 WBC Manual cnt (Bld)Ordered By: Maddie Dixon on 01-29-2023 Variant lymphocytes/100 WBC (Bld) 1 % 0-12 [facility] WBC Auto (Bld) [#/Vol]Ordere d By: Maddie Dixon on 01-29-2023 WBC (Bld) [#/Vol] 11.0 10*3/uL 4.1-10.5 [facility] Alanine aminotransferase [En zymatic activity/volume] in Serum or PlasmaOrdered By: Jose M Landry on 01-15-2023 ALT [Catalytic activity/Vol] 14 U/L 7-52 [facility] Albumin [Mass/volume] in Ser um or Plasma by Bromocresol green (BCG) dye binding methoOrdered By: Jose M Landry on 01-15-2023 Albumin BCG dye [Mass/Vol] 3.6 g/dL 3.5-5.7 [facility] Alkaline phosphatase [Enzyma tic activity/volume] in Serum or PlasmaOrdered By: Jose M Landry on 01-15-2023 ALP [Catalytic activity/Vol] 192 U/L 34-104 [facility] Anisocytosis LM Ql (Bld)Orde red By: Jose M Landry on 01-15-2023 Anisocytosis Ql (Bld) Marked [facility] Aspartate aminotransferase [ Enzymatic activity/volume] in Serum or PlasmaOrdered By: Jose M Landry on 01-15-2023 AST [Catalytic activity/Vol] 22 U/L 13-39 [facility] Band form neutrophils/100 WB C Manual cnt (Bld)Ordered By: Jose M Landry on 01-15-2023 Band form neutrophils/100 WBC (Bld) 1 % 0-5 [facility] Basophils Auto (Bld) [#/Vol] Ordered By: Jose M Landry on 01-15-2023 Basophils (Bld) [#/Vol] N/A [facility] Basophils/100 WBC Auto (Bld) Ordered By: Jose M Landry on 01-15-2023 Basophils/100 WBC (Bld) N/A [facility] Bilirubin.total [Mass/volume ] in Serum or PlasmaOrdered By: Jose M Landry on 01-15-2023 Bilirubin [Mass/Vol] 0.4 mg/dL 0.3-1.0 [facility] Calcium [Mass/volume] in Ser um or PlasmaOrdered By: Jose M Landry on 01-15-2023 Calcium [Mass/Vol] 8.1 mg/dL 8.6-10.3 [facility] Carbon dioxide, total [Moles /volume] in Serum or PlasmaOrdered By: Jose M Landry on 01-15-2023 CO2 [Moles/Vol] 24.6 mmol/L 21.0-31.0 [facility] Chloride [Moles/volume] in S leti or PlasmaOrdered By: Jose M Landry on 01-15-2023 Chloride [Moles/Vol] 105 mmol/L 98-107 [facility] Creatinine [Mass/volume] in Serum or PlasmaOrdered By: Jose M Landry on 01-15-2023 Creatinine [Mass/Vol] 3.96 mg/dL 0.70-1.30 [facility] Eosinophils Auto (Bld) [#/Vo l]Ordered By: Jose M Landry on 01-15-2023 Eosinophils (Bld) [#/Vol] N/A [facility] Eosinophils/100 WBC Auto (Bl d)Ordered By: Jose M Landry on 01-15-2023 Eosinophils/100 WBC (Bld) N/A [facility] Eosinophils/100 WBC Manual c nt (Bld)Ordered By: Jose M Landry on 01-15-2023 Eosinophils/100 WBC (Bld) 6 % 1-3 [facility] Erythrocyte distribution wid th Auto (RBC) [Ratio]Ordered By: Jose M Landry on 01-15-2023 Erythrocyte distribution width (RBC) [Ratio] 17.4 % 12.0-14.8 [facility] Giant platelets/100 leukocyt es [Ratio] in Blood by Manual countOrdered By: Jose M Landry on 01-15-2023 Giant platelets/100 WBC Manual cnt (Bld) [Ratio] 5 /100{WBC} [facility] Globulin Calc (S) [Mass/Vol] Ordered By: Jose M Landry on 01-15-2023 Globulin (S) [Mass/Vol] 4.3 g/dL [facility] Glucose [Mass/volume] in Ser um or PlasmaOrdered By: Jose M Landry on 01-15-2023 Glucose [Mass/Vol] 222 mg/dL 70-100 [facility] Comment on above: ADA recommended refe rence rangeRandom Glucose Reference Range is dependent on time and content of last meal. Glucose of more than 200 mg/dL in a nonstressed, ambulatory subject supports the diagnosis of Diabetes Mellitus. Hematocrit Auto (Bld) [Volum e fraction]Ordered By: Jose M Landry on 01-15-2023 Hematocrit (Bld) [Volume fraction] 32.5 % 38.8-50.0 [facility] Hemoglobin [Mass/volume] in BloodOrdered By: Jose M Landry on 01-15-2023 Hemoglobin (Bld) [Mass/Vol] 10.4 g/dL 13.0-17.0 [facility] Hypochromia LM Ql (Bld)Order ed By: Jose M Landry on 01-15-2023 Hypochromia Ql (Bld) Moderate [facility] Leukocytes [#/volume] correc lakesha for nucleated erythrocytes in Blood by Automated counOrdered By: Jose M Landry on 01-15-2023 WBC corrected for nucl RBC Auto (Bld) [#/Vol] 12.5 10*3/uL 4.1-10.5 [facility] Lymphocytes Auto (Bld) [#/Vo l]Ordered By: Jose M Landry on 01-15-2023 Lymphocytes (Bld) [#/Vol] N/A [facility] Lymphocytes/100 WBC Auto (Bl d)Ordered By: Jose M Landry on 01-15-2023 Lymphocytes/100 WBC (Bld) N/A [facility] Lymphocytes/100 WBC Manual c nt (Bld)Ordered By: Jose M Landry on 01-15-2023 Lymphocytes/100 WBC (Bld) 27 % 18-42 [facility] MCH Auto (RBC) [Entitic mass ]Ordered By: Jose M Landry on 01-15-2023 MCH (RBC) [Entitic mass] 30.5 pg 27.5-35.2 [facility] MCHC Auto (RBC) [Mass/Vol]Or dered By: Jose M Landry on 01-15-2023 MCHC (RBC) [Mass/Vol] 31.9 g/dL 32.5-35.6 [facility] MCV Auto (RBC) [Entitic vol] Ordered By: Jose M Landry on 01-15-2023 MCV (RBC) [Entitic vol] 95.6 fL 83.5-101 [facility] Macrocytes LM Ql (Bld)Ordere d By: Jose M Landry on 01-15-2023 Macrocytes Ql (Bld) Moderate [facility] Monocytes Auto (Bld) [#/Vol] Ordered By: Jose M Landry on 01-15-2023 Monocytes (Bld) [#/Vol] N/A [facility] Monocytes/100 WBC Auto (Bld) Ordered By: Jose M Landry on 01-15-2023 Monocytes/100 WBC (Bld) N/A [facility] Monocytes/100 WBC Manual cnt (Bld)Ordered By: Jose M Landry on 01-15-2023 Monocytes/100 WBC (Bld) 7 % 2-11 [facility] Neutrophils Auto (Bld) [#/Vo l]Ordered By: Jose M Landry on 01-15-2023 Neutrophils (Bld) [#/Vol] N/A [facility] Neutrophils/100 WBC Auto (Bl d)Ordered By: Jose M Landry on 01-15-2023 Neutrophils/100 WBC (Bld) N/A [facility] No Panel InformationOrdered By: Jose M Landry on 01-15-2023 Estimated GFR (CKD-EPI) 15.335 mL/Min [facility] Creatinine Clearance (Chem N/A [facility] 15.335 mL/Min [facility] N/A [facility] Nucleated RBC/100 WBC Manual cnt (Bld) [Ratio]Ordered By: Jose M Landry on 01-15-2023 Nucleated RBC/100 WBC (Bld) [Ratio] 1 /100{WBC} 0-0 [facility] Nucleated erythrocytes [Pres ence] in Blood by Automated countOrdered By: Jose M Landry on 01-15-2023 Nucleated RBC Auto Ql (Bld) N/A [facility] Platelet adequacy [Presence] in Blood by Light microscopyOrdered By: Jose M Landry on 01-15-2023 Platelets LM Ql (Bld) Normal Normal [facility] Platelet mean volume Auto (B ld) [Entitic vol]Ordered By: Jose M Landry on 01-15-2023 Platelet mean volume (Bld) [Entitic vol] 11.0 fL 6.6-10.1 [facility] Platelet morphology finding [Identifier] in BloodOrdered By: Jose M Landry on 01-15-2023 Platelet morphology finding Nom (Bld) N/A [facility] Platelets Auto (Bld) [#/Vol] Ordered By: Jose M Landry on 01-15-2023 Platelets (Bld) [#/Vol] 193 10*3/uL 150-450 [facility] Platelets Large [Presence] i n Blood by Light microscopyOrdered By: Jose M Landry on 01-15-2023 Platelets Large LM Ql (Bld) Slight [facility] Poikilocytosis [Presence] in Blood by Light microscopyOrdered By: Jose M Landry on 01-15-2023 Poikilocytosis LM Ql (Bld) Slight [facility] Polychromasia [Presence] in Blood by Light microscopyOrdered By: Jose M Landry on 01-15-2023 Polychromasia LM Ql (Bld) Slight [facility] Potassium [Moles/volume] in Serum or PlasmaOrdered By: Jose M Landry on 01-15-2023 Potassium [Moles/Vol] 4.9 mmol/L 3.5-5.1 [facility] Protein [Mass/volume] in Ser um or PlasmaOrdered By: Jose M Landry on 01-15-2023 Protein [Mass/Vol] 7.9 g/dL 6.4-8.9 [facility] RBC Auto (Bld) [#/Vol]Ordere d By: Jose M Landry on 01-15-2023 RBC (Bld) [#/Vol] 3.40 10*6/uL 3.90-5.60 [facility] RBC morphologyOrdered By: Delmer Landry on 01-15-2023 RBC morphology finding Nom (Bld) N/A [facility] Segmented neutrophils/100 WB C Manual cnt (Bld)Ordered By: Jose M Landry on 01-15-2023 Segmented neutrophils/100 WBC (Bld) 58 % 50-70 [facility] Serum or plasma albumin/glob ulin mass ratioOrdered By: Jose M Landry on 01-15-2023 Albumin/Globulin [Mass ratio] 0.8 {ratio} [facility] Serum or plasma anion gap de terminationOrdered By: Jose M Landry on 01-15-2023 Anion gap [Moles/Vol] 15.3 mmol/L 6.0-15.0 [facility] Sodium [Moles/volume] in Ser um or PlasmaOrdered By: Jose M Landry on 01-15-2023 Sodium [Moles/Vol] 140 mmol/L 136-145 [facility] Target cellsOrdered By: Vivek Landry on 01-15-2023 Target cells LM Ql (Bld) Marked [facility] Urea nitrogen [Mass/volume] in Serum or PlasmaOrdered By: Jose M Landry on 01-15-2023 Urea nitrogen [Mass/Vol] 37 mg/dL 7-25 [facility] Variant lymphocytes/100 WBC Manual cnt (Bld)Ordered By: Jose M Landry on 01-15-2023 Variant lymphocytes/100 WBC (Bld) 2 % 0-12 [facility] WBC Auto (Bld) [#/Vol]Ordere d By: Jose M Landry on 01-15-2023 WBC (Bld) [#/Vol] 12.5 10*3/uL 4.1-10.5 [facility] Alanine aminotransferase [En zymatic activity/volume] in Serum or PlasmaOrdered By: Mervat Santiago on 12-24-2022 ALT [Catalytic activity/Vol] 19 U/L 7-52 [facility] Albumin [Mass/volume] in Ser um or Plasma by Bromocresol green (BCG) dye binding methoOrdered By: Mervat Santiago on 12-24-2022 Albumin BCG dye [Mass/Vol] 3.6 g/dL 3.5-5.7 [facility] Alkaline phosphatase [Enzyma tic activity/volume] in Serum or PlasmaOrdered By: Mervat Santiago on 12-24-2022 ALP [Catalytic activity/Vol] 174 U/L 34-104 [facility] Aspartate aminotransferase [ Enzymatic activity/volume] in Serum or PlasmaOrdered By: Mervat Santiago on 12-24-2022 AST [Catalytic activity/Vol] 22 U/L 13-39 [facility] Basophils Auto (Bld) [#/Vol] Ordered By: Mervat Santiago on 12-24-2022 Basophils (Bld) [#/Vol] 0.1 10*3/uL 0.0-0.2 [facility] Basophils/100 WBC Auto (Bld) Ordered By: Mervat Santiago on 12-24-2022 Basophils/100 WBC (Bld) 1.1 % . [facility] Bilirubin.total [Mass/volume ] in Serum or PlasmaOrdered By: Mervat Santiago on 12-24-2022 Bilirubin [Mass/Vol] 0.3 mg/dL 0.3-1.0 [facility] Calcium [Mass/volume] in Ser um or PlasmaOrdered By: Mervat Santiago on 12-24-2022 Calcium [Mass/Vol] 8.6 mg/dL 8.6-10.3 [facility] Carbon dioxide, total [Moles /volume] in Serum or PlasmaOrdered By: Mervat Santiago on 12-24-2022 CO2 [Moles/Vol] 26.7 mmol/L 21.0-31.0 [facility] Chloride [Moles/volume] in S leti or PlasmaOrdered By: Mervat Santiago on 12-24-2022 Chloride [Moles/Vol] 101 mmol/L 98-107 [facility] Cholesterol [Mass/volume] in Serum or PlasmaOrdered By: Mervat Santiago on 12-24-2022 Cholesterol [Mass/Vol] 128 mg/dL 140-200 [facility] Comment on above: Chol less than 200 m g/dl low riskChol 201-239 mg/dl borderline riskChol 240 mg/dl and greater high risk Cholesterol in LDL Calc [Mas s/Vol]Ordered By: Mervat Santiago on 12-24-2022 Cholesterol in LDL [Mass/Vol] 42 mg/dL 0-100 [facility] Comment on above: LDL ATP III CLASSIFI CATIONLDL less than 100 mg/dL OptimalLDL 100-129 mg/dL Near or above optimalLDL 130-159 mg/dL Borderline highLDL 160-189 mg/dL HighLDL greater than 189 mg/dL Very high Cholesterol in VLDL Calc [Ma ss/Vol]Ordered By: Mervat Santiago on 12-24-2022 Cholesterol in VLDL [Mass/Vol] 23 mg/dL [facility] Creatinine [Mass/volume] in Serum or PlasmaOrdered By: Mervat Santiago on 12-24-2022 Creatinine [Mass/Vol] 3.47 mg/dL 0.70-1.30 [facility] Eosinophils Auto (Bld) [#/Vo l]Ordered By: Mervat Santiago on 12-24-2022 Eosinophils (Bld) [#/Vol] 0.5 10*3/uL 0.0-0.45 [facility] Eosinophils/100 WBC Auto (Bl d)Ordered By: Mervat Santiago on 12-24-2022 Eosinophils/100 WBC (Bld) 4.4 % . [facility] Erythrocyte distribution wid th Auto (RBC) [Ratio]Ordered By: Mervat Santiago on 12-24-2022 Erythrocyte distribution width (RBC) [Ratio] 14.5 % 12.0-14.8 [facility] Globulin Calc (S) [Mass/Vol] Ordered By: Mervat Santiago on 12-24-2022 Globulin (S) [Mass/Vol] 4.1 g/dL [facility] Glucose [Mass/volume] in Ser um or PlasmaOrdered By: Mervat Santiago on 12-24-2022 Glucose [Mass/Vol] 229 mg/dL 70-100 [facility] Comment on above: ADA recommended refe rence rangeRandom Glucose Reference Range is dependent on time and content of last meal. Glucose of more than 200 mg/dL in a nonstressed, ambulatory subject supports the diagnosis of Diabetes Mellitus. Hematocrit Auto (Bld) [Volum e fraction]Ordered By: Mervat Santiago on 12-24-2022 Hematocrit (Bld) [Volume fraction] 29.8 % 38.8-50.0 [facility] Hemoglobin [Mass/volume] in BloodOrdered By: Mervat Santiago on 12-24-2022 Hemoglobin (Bld) [Mass/Vol] 9.7 g/dL 13.0-17.0 [facility] Leukocytes [#/volume] correc lakesha for nucleated erythrocytes in Blood by Automated counOrdered By: Mervat Santiago on 12-24-2022 WBC corrected for nucl RBC Auto (Bld) [#/Vol] 11.5 10*3/uL 4.1-10.5 [facility] Lymphocytes Auto (Bld) [#/Vo l]Ordered By: Mervat Santiago on 12-24-2022 Lymphocytes (Bld) [#/Vol] 4.0 10*3/uL 1.00-4.8 [facility] Lymphocytes/100 WBC Auto (Bl d)Ordered By: Mervat Santiago on 12-24-2022 Lymphocytes/100 WBC (Bld) 34.9 % . [facility] MCH Auto (RBC) [Entitic mass ]Ordered By: Mervat Santiago on 12-24-2022 MCH (RBC) [Entitic mass] 30.6 pg 27.5-35.2 [facility] MCHC Auto (RBC) [Mass/Vol]Or dered By: Mervat Santiago on 12-24-2022 MCHC (RBC) [Mass/Vol] 32.7 g/dL 32.5-35.6 [facility] MCV Auto (RBC) [Entitic vol] Ordered By: Mervat Santiago on 12-24-2022 MCV (RBC) [Entitic vol] 93.6 fL 83.5-101 [facility] Monocytes Auto (Bld) [#/Vol] Ordered By: Mervat Santiago on 12-24-2022 Monocytes (Bld) [#/Vol] 0.9 10*3/uL 0.0-0.8 [facility] Monocytes/100 WBC Auto (Bld) Ordered By: Mervat Santiago on 12-24-2022 Monocytes/100 WBC (Bld) 7.5 % . [facility] Neutrophils Auto (Bld) [#/Vo l]Ordered By: Mervat Santiago on 12-24-2022 Neutrophils (Bld) [#/Vol] 6.0 10*3/uL 1.8-7.7 [facility] Neutrophils/100 WBC Auto (Bl d)Ordered By: Mervat Santiago on 12-24-2022 Neutrophils/100 WBC (Bld) 52.1 % . [facility] No Panel InformationOrdered By: Mervat Santiago on 12-24-2022 Estimated GFR (CKD-EPI) 17.968 mL/Min [facility] Creatinine Clearance (Chem N/A [facility] 17.968 mL/Min [facility] N/A [facility] Nucleated erythrocytes [Pres ence] in Blood by Automated countOrdered By: Mervat Santiago on 12-24-2022 Nucleated RBC Auto Ql (Bld) 0.1 /100{WBC} 0-0.5 [facility] Platelet adequacy [Presence] in Blood by Light microscopyOrdered By: Mervat Santiago on 12-24-2022 Platelets LM Ql (Bld) Decreased Normal [facility] Platelet mean volume Auto (B ld) [Entitic vol]Ordered By: Mervat Santiago on 12-24-2022 Platelet mean volume (Bld) [Entitic vol] 10.8 fL 6.6-10.1 [facility] Platelet morphology finding [Identifier] in BloodOrdered By: Mervat Santiago on 12-24-2022 Platelet morphology finding Nom (Bld) Normal Normal [facility] Platelets Auto (Bld) [#/Vol] Ordered By: Mervat Santiago on 12-24-2022 Platelets (Bld) [#/Vol] 143 10*3/uL 150-450 [facility] Polychromasia [Presence] in Blood by Light microscopyOrdered By: Mervat Santiago on 12-24-2022 Polychromasia LM Ql (Bld) Slight [facility] Potassium [Moles/volume] in Serum or PlasmaOrdered By: Mervat Santiago on 12-24-2022 Potassium [Moles/Vol] 4.5 mmol/L 3.5-5.1 [facility] Protein [Mass/volume] in Ser um or PlasmaOrdered By: Mervat Santiago on 12-24-2022 Protein [Mass/Vol] 7.7 g/dL 6.4-8.9 [facility] RBC Auto (Bld) [#/Vol]Ordere d By: Mervat Santiago on 12-24-2022 RBC (Bld) [#/Vol] 3.18 10*6/uL 3.90-5.60 [facility] RBC morphologyOrdered By: Savannah Santiago on 12-24-2022 RBC morphology finding Nom (Bld) N/A [facility] Schistocytes [Presence] in B lood by Light microscopyOrdered By: Mervat Santiago on 12-24-2022 Schistocytes LM Ql (Bld) Slight [facility] Serum or plasma albumin/glob ulin mass ratioOrdered By: Mervat Santiago on 12-24-2022 Albumin/Globulin [Mass ratio] 0.9 {ratio} [facility] Serum or plasma anion gap de terminationOrdered By: Mervat Santiago on 12-24-2022 Anion gap [Moles/Vol] 13.8 mmol/L 6.0-15.0 [facility] Serum or plasma high density lipoprotein (HDL) cholesterol measurementOrdered By: Mervat Santiago on 12-24-2022 Cholesterol in HDL [Mass/Vol] 62 mg/dL 23-92 [facility] Comment on above: HDL CHOL ATP-III CLA SSIFICATION Cardiovascular RiskHDL > or equal to 60 mg/dL LOWHDL < 40 mg/dL HIGH Serum or plasma total choles terol/high density lipoprotein (HDL) cholesterol mass ratOrdered By: Mervat Santiago on 12-24-2022 Cholesterol.total/Aleja sterol in HDL [Mass ratio] 2.1 {ratio} <5.0 [facility] Sodium [Moles/volume] in Ser um or PlasmaOrdered By: Mervat Santiago on 12-24-2022 Sodium [Moles/Vol] 137 mmol/L 136-145 [facility] Target cellsOrdered By: Samson Santiago on 12-24-2022 Target cells LM Ql (Bld) Slight [facility] Thyrotropin [Units/volume] i n Serum or PlasmaOrdered By: Mervat Santiago on 12-24-2022 TSH Qn 2.73 m[IU]/L 0.45-5.33 [facility] Triglyceride [Mass/volume] i n Serum or PlasmaOrdered By: Mervat Santiago on 12-24-2022 Triglyceride [Mass/Vol] 119 mg/dL 0-149 [facility] Comment on above: TRIG ATP III CLASSIF ICATIONTRIG less than 150 mg/dL NormalTRIG 150-199 mg/dL Borderline highTRIG 200-500 mg/dL High TRIG greater than 500 mg/dL Very highStandard traceable to the Center for Disease Conrtrol and Prevention (CDC) test method. Urea nitrogen [Mass/volume] in Serum or PlasmaOrdered By: Mervat Santiago on 12-24-2022 Urea nitrogen [Mass/Vol] 49 mg/dL 7-25 [facility] Vitamin D+Metabolites [Mass/ volume] in Serum or PlasmaOrdered By: Mervat Santiago on 12-24-2022 Vitamin D+Metabolites [Mass/Vol] 11.8 ng/mL 30-100 [facility] Comment on above: VITAMIN D STATUS 25( [place])VITAMIN D RANGE (ng/mL) Deficient <20 Insufficient 20 to <30Sufficient 30 to 100Reference: Waylon MF,Xavier SUMNER, [place] RIOS, et al. Evaluation,treatment, and prevention of vitamin D deficiency; an Endocrine Society clinical practice guideline. JCEM. 2010; 96(7):1911-30. WBC Auto (Bld) [#/Vol]Ordere d By: Mervat Santiago on 12-24-2022 WBC (Bld) [#/Vol] 11.5 10*3/uL 4.1-10.5 [facility] Alanine aminotransferase [En zymatic activity/volume] in Serum or PlasmaOrdered By: Jose M Landry on 12-13-2022 ALT [Catalytic activity/Vol] 18 U/L 7-52 [facility] Albumin [Mass/volume] in Ser um or Plasma by Bromocresol green (BCG) dye binding methoOrdered By: Jose M Landry on 12-13-2022 Albumin BCG dye [Mass/Vol] 3.7 g/dL 3.5-5.7 [facility] Alkaline phosphatase [Enzyma tic activity/volume] in Serum or PlasmaOrdered By: Jose M Landry on 12-13-2022 ALP [Catalytic activity/Vol] 157 U/L 34-104 [facility] Aspartate aminotransferase [ Enzymatic activity/volume] in Serum or PlasmaOrdered By: Jose M Landry on 12-13-2022 AST [Catalytic activity/Vol] 28 U/L 13-39 [facility] Basophils Auto (Bld) [#/Vol] Ordered By: Jose M Landry on 12-13-2022 Basophils (Bld) [#/Vol] 0.1 10*3/uL 0.0-0.2 [facility] Basophils/100 WBC Auto (Bld) Ordered By: Jose M Landry on 12-13-2022 Basophils/100 WBC (Bld) 0.5 % . [facility] Bilirubin.total [Mass/volume ] in Serum or PlasmaOrdered By: Jose M Landry on 12-13-2022 Bilirubin [Mass/Vol] 0.3 mg/dL 0.3-1.0 [facility] Calcium [Mass/volume] in Ser um or PlasmaOrdered By: Jose M Landry on 12-13-2022 Calcium [Mass/Vol] 9.0 mg/dL 8.6-10.3 [facility] Carbon dioxide, total [Moles /volume] in Serum or PlasmaOrdered By: Jose M Landry on 12-13-2022 CO2 [Moles/Vol] 28.4 mmol/L 21.0-31.0 [facility] Chloride [Moles/volume] in S leti or PlasmaOrdered By: Jose M Landry on 12-13-2022 Chloride [Moles/Vol] 103 mmol/L 98-107 [facility] Creatinine [Mass/volume] in Serum or PlasmaOrdered By: Jose M Landry on 12-13-2022 Creatinine [Mass/Vol] 3.21 mg/dL 0.70-1.30 [facility] Eosinophils Auto (Bld) [#/Vo l]Ordered By: Jose M Landry on 12-13-2022 Eosinophils (Bld) [#/Vol] 0.4 10*3/uL 0.0-0.45 [facility] Eosinophils/100 WBC Auto (Bl d)Ordered By: Jose M Landry on 12-13-2022 Eosinophils/100 WBC (Bld) 3.5 % . [facility] Erythrocyte distribution wid th Auto (RBC) [Ratio]Ordered By: Jose M Landry on 12-13-2022 Erythrocyte distribution width (RBC) [Ratio] 14.9 % 12.0-14.8 [facility] Globulin Calc (S) [Mass/Vol] Ordered By: Jose M Landry on 12-13-2022 Globulin (S) [Mass/Vol] 4.3 g/dL [facility] Glucose [Mass/volume] in Ser um or PlasmaOrdered By: Jose M Landry on 12-13-2022 Glucose [Mass/Vol] 110 mg/dL 70-100 [facility] Comment on above: ADA recommended refe rence rangeRandom Glucose Reference Range is dependent on time and content of last meal. Glucose of more than 200 mg/dL in a nonstressed, ambulatory subject supports the diagnosis of Diabetes Mellitus. Hematocrit Auto (Bld) [Volum e fraction]Ordered By: Jose M Landry on 12-13-2022 Hematocrit (Bld) [Volume fraction] 36.8 % 38.8-50.0 [facility] Hemoglobin [Mass/volume] in BloodOrdered By: Jose M Landry on 12-13-2022 Hemoglobin (Bld) [Mass/Vol] 11.8 g/dL 13.0-17.0 [facility] Leukocytes [#/volume] correc lakesha for nucleated erythrocytes in Blood by Automated counOrdered By: Jose M Landry on 12-13-2022 WBC corrected for nucl RBC Auto (Bld) [#/Vol] 11.3 10*3/uL 4.1-10.5 [facility] Lymphocytes Auto (Bld) [#/Vo l]Ordered By: Jose M Landry on 12-13-2022 Lymphocytes (Bld) [#/Vol] 5.3 10*3/uL 1.00-4.8 [facility] Lymphocytes/100 WBC Auto (Bl d)Ordered By: Jose M Landry on 12-13-2022 Lymphocytes/100 WBC (Bld) 47.0 % . [facility] MCH Auto (RBC) [Entitic mass ]Ordered By: Jose M Landry on 12-13-2022 MCH (RBC) [Entitic mass] 30.3 pg 27.5-35.2 [facility] MCHC Auto (RBC) [Mass/Vol]Or dered By: Jose M Landry on 12-13-2022 MCHC (RBC) [Mass/Vol] 32.1 g/dL 32.5-35.6 [facility] MCV Auto (RBC) [Entitic vol] Ordered By: Jose M Landry on 12-13-2022 MCV (RBC) [Entitic vol] 94.6 fL 83.5-101 [facility] Monocytes Auto (Bld) [#/Vol] Ordered By: Jose M Landry on 12-13-2022 Monocytes (Bld) [#/Vol] 0.7 10*3/uL 0.0-0.8 [facility] Monocytes/100 WBC Auto (Bld) Ordered By: Jose M Landry on 12-13-2022 Monocytes/100 WBC (Bld) 6.0 % . [facility] Neutrophils Auto (Bld) [#/Vo l]Ordered By: Jose M Landry on 12-13-2022 Neutrophils (Bld) [#/Vol] 4.9 10*3/uL 1.8-7.7 [facility] Neutrophils/100 WBC Auto (Bl d)Ordered By: Jose M Landry on 12-13-2022 Neutrophils/100 WBC (Bld) 43.0 % . [facility] No Panel InformationOrdered By: Jose M Landry on 12-13-2022 Estimated GFR (CKD-EPI) 19.729 mL/Min [facility] Creatinine Clearance (Chem N/A [facility] 19.729 mL/Min [facility] N/A [facility] Nucleated erythrocytes [Pres ence] in Blood by Automated countOrdered By: Jose M Landry on 12-13-2022 Nucleated RBC Auto Ql (Bld) 0.2 /100{WBC} 0-0.5 [facility] Platelet mean volume Auto (B ld) [Entitic vol]Ordered By: Jose M Landry on 12-13-2022 Platelet mean volume (Bld) [Entitic vol] 11.1 fL 6.6-10.1 [facility] Platelets Auto (Bld) [#/Vol] Ordered By: Jose M Landry on 12-13-2022 Platelets (Bld) [#/Vol] 200 10*3/uL 150-450 [facility] Potassium [Moles/volume] in Serum or PlasmaOrdered By: Jose M Landry on 12-13-2022 Potassium [Moles/Vol] 4.7 mmol/L 3.5-5.1 [facility] Protein [Mass/volume] in Ser um or PlasmaOrdered By: Jose M Landry on 12-13-2022 Protein [Mass/Vol] 8.0 g/dL 6.4-8.9 [facility] RBC Auto (Bld) [#/Vol]Ordere d By: Jose M Landry on 12-13-2022 RBC (Bld) [#/Vol] 3.90 10*6/uL 3.90-5.60 [facility] Serum or plasma albumin/glob ulin mass ratioOrdered By: Jose M Landry on 12-13-2022 Albumin/Globulin [Mass ratio] 0.9 {ratio} [facility] Serum or plasma anion gap de terminationOrdered By: Jose M Landry on 12-13-2022 Anion gap [Moles/Vol] 14.3 mmol/L 6.0-15.0 [facility] Sodium [Moles/volume] in Ser um or PlasmaOrdered By: Jose M Landry on 12-13-2022 Sodium [Moles/Vol] 141 mmol/L 136-145 [facility] Urea nitrogen [Mass/volume] in Serum or PlasmaOrdered By: Jose M Landry on 12-13-2022 Urea nitrogen [Mass/Vol] 41 mg/dL 10-29 [facility] WBC Auto (Bld) [#/Vol]Ordere d By: Jose M Landry on 12-13-2022 WBC (Bld) [#/Vol] 11.3 10*3/uL 4.1-10.5 [facility] Anisocytosis LM Ql (Bld)Orde red By: Jose M Landry on 11-29-2022 Anisocytosis Ql (Bld) Slight [facility] Basophils Auto (Bld) [#/Vol] Ordered By: Jose M Landry on 11-29-2022 Basophils (Bld) [#/Vol] 0.0 10*3/uL 0.0-0.2 [facility] Basophils/100 WBC Auto (Bld) Ordered By: Jose M Landry on 11-29-2022 Basophils/100 WBC (Bld) 0.3 % . [facility] Eosinophils Auto (Bld) [#/Vo l]Ordered By: Jose M Landry on 11-29-2022 Eosinophils (Bld) [#/Vol] 0.7 10*3/uL 0.0-0.45 [facility] Eosinophils/100 WBC Auto (Bl d)Ordered By: Jose M Landry on 11-29-2022 Eosinophils/100 WBC (Bld) 6.1 % . [facility] Erythrocyte distribution wid th Auto (RBC) [Ratio]Ordered By: Jose M Landry on 11-29-2022 Erythrocyte distribution width (RBC) [Ratio] 15.7 % 12.0-14.8 [facility] Hematocrit Auto (Bld) [Volum e fraction]Ordered By: Jose M Landry on 11-29-2022 Hematocrit (Bld) [Volume fraction] 35.9 % 38.8-50.0 [facility] Hemoglobin [Mass/volume] in BloodOrdered By: Jose M Landry on 11-29-2022 Hemoglobin (Bld) [Mass/Vol] 11.7 g/dL 13.0-17.0 [facility] Leukocytes [#/volume] correc lakesha for nucleated erythrocytes in Blood by Automated counOrdered By: Jose M Landry on 11-29-2022 WBC corrected for nucl RBC Auto (Bld) [#/Vol] 11.1 10*3/uL 4.1-10.5 [facility] Lymphocytes Auto (Bld) [#/Vo l]Ordered By: Jose M Landry on 11-29-2022 Lymphocytes (Bld) [#/Vol] 3.8 10*3/uL 1.00-4.8 [facility] Lymphocytes/100 WBC Auto (Bl d)Ordered By: Jose M Landry on 11-29-2022 Lymphocytes/100 WBC (Bld) 34.0 % . [facility] MCH Auto (RBC) [Entitic mass ]Ordered By: Jose M Landry on 11-29-2022 MCH (RBC) [Entitic mass] 30.9 pg 27.5-35.2 [facility] MCHC Auto (RBC) [Mass/Vol]Or dered By: Jose M Landry on 11-29-2022 MCHC (RBC) [Mass/Vol] 32.5 g/dL 32.5-35.6 [facility] MCV Auto (RBC) [Entitic vol] Ordered By: Jose M Landry on 11-29-2022 MCV (RBC) [Entitic vol] 95.3 fL 83.5-101 [facility] Monocytes Auto (Bld) [#/Vol] Ordered By: Jose M Landry on 11-29-2022 Monocytes (Bld) [#/Vol] 1.2 10*3/uL 0.0-0.8 [facility] Monocytes/100 WBC Auto (Bld) Ordered By: Jose M Landry on 11-29-2022 Monocytes/100 WBC (Bld) 11.1 % . [facility] Neutrophils Auto (Bld) [#/Vo l]Ordered By: Jose M Landry on 11-29-2022 Neutrophils (Bld) [#/Vol] 5.4 10*3/uL 1.8-7.7 [facility] Neutrophils/100 WBC Auto (Bl d)Ordered By: Jose M Landry on 11-29-2022 Neutrophils/100 WBC (Bld) 48.5 % . [facility] Nucleated erythrocytes [Pres ence] in Blood by Automated countOrdered By: Jose M Landry on 11-29-2022 Nucleated RBC Auto Ql (Bld) 0.2 /100{WBC} 0-0.5 [facility] Platelet adequacy [Presence] in Blood by Light microscopyOrdered By: Jose M Landry on 11-29-2022 Platelets LM Ql (Bld) Normal Normal [facility] Platelet mean volume Auto (B ld) [Entitic vol]Ordered By: Jose M Landry on 11-29-2022 Platelet mean volume (Bld) [Entitic vol] 11.0 fL 6.6-10.1 [facility] Platelet morphology finding [Identifier] in BloodOrdered By: Jose M Landry on 11-29-2022 Platelet morphology finding Nom (Bld) N/A [facility] Platelets Auto (Bld) [#/Vol] Ordered By: Jose M Landry on 11-29-2022 Platelets (Bld) [#/Vol] 152 10*3/uL 150-450 [facility] Platelets Large [Presence] i n Blood by Light microscopyOrdered By: Jose M Landry on 11-29-2022 Platelets Large LM Ql (Bld) Moderate [facility] RBC Auto (Bld) [#/Vol]Ordere d By: Jose M Landry on 11-29-2022 RBC (Bld) [#/Vol] 3.77 10*6/uL 3.90-5.60 [facility] RBC morphologyOrdered By: Delmer Landry on 11-29-2022 RBC morphology finding Nom (Bld) N/A [facility] Target cellsOrdered By: Vivek Landry on 11-29-2022 Target cells LM Ql (Bld) Moderate [facility] WBC Auto (Bld) [#/Vol]Ordere d By: Jose M Landry on 11-29-2022 WBC (Bld) [#/Vol] 11.1 10*3/uL 4.1-10.5 [facility] Alanine aminotransferase [En zymatic activity/volume] in Serum or PlasmaOrdered By: Jose M Landry on 11-27-2022 ALT [Catalytic activity/Vol] 7 U/L 7-52 [facility] Albumin [Mass/volume] in Ser um or Plasma by Bromocresol green (BCG) dye binding methoOrdered By: Jose M Landry on 11-27-2022 Albumin BCG dye [Mass/Vol] 3.7 g/dL 3.5-5.7 [facility] Alkaline phosphatase [Enzyma tic activity/volume] in Serum or PlasmaOrdered By: Jose M Landry on 11-27-2022 ALP [Catalytic activity/Vol] 142 U/L 34-104 [facility] Aspartate aminotransferase [ Enzymatic activity/volume] in Serum or PlasmaOrdered By: Jose M Landry on 11-27-2022 AST [Catalytic activity/Vol] 15 U/L 13-39 [facility] Bilirubin.total [Mass/volume ] in Serum or PlasmaOrdered By: Jose M Landry on 11-27-2022 Bilirubin [Mass/Vol] 0.4 mg/dL 0.3-1.0 [facility] Calcium [Mass/volume] in Ser um or PlasmaOrdered By: Jose M Landry on 11-27-2022 Calcium [Mass/Vol] 8.3 mg/dL 8.6-10.3 [facility] Carbon dioxide, total [Moles /volume] in Serum or PlasmaOrdered By: Jose M Landry on 11-27-2022 CO2 [Moles/Vol] 26.7 mmol/L 21.0-31.0 [facility] Chloride [Moles/volume] in S leti or PlasmaOrdered By: Jose M Landry on 11-27-2022 Chloride [Moles/Vol] 102 mmol/L 98-107 [facility] Creatinine [Mass/volume] in Serum or PlasmaOrdered By: Jose M Landry on 11-27-2022 Creatinine [Mass/Vol] 4.12 mg/dL 0.70-1.30 [facility] Ferritin [Mass/volume] in Se rum or PlasmaOrdered By: Jose M Landry on 11-27-2022 Ferritin [Mass/Vol] 173.0 ng/mL 23.9-336.2 [facility] Globulin Calc (S) [Mass/Vol] Ordered By: Jose M Landry on 11-27-2022 Globulin (S) [Mass/Vol] 4.5 g/dL [facility] Glucose [Mass/volume] in Ser um or PlasmaOrdered By: Jose M Landry on 11-27-2022 Glucose [Mass/Vol] 154 mg/dL 70-100 [facility] Iron [Mass/volume] in Serum or PlasmaOrdered By: Jose M Landry on 11-27-2022 Iron [Mass/Vol] 94 ug/dL 50-212 [facility] Iron binding capacity [Mass/ volume] in Serum or PlasmaOrdered By: Jose M Landry on 11-27-2022 Iron binding capacity [Mass/Vol] 276 ug/dL 255-450 [facility] Iron saturation [Mass Fracti on] in Serum or PlasmaOrdered By: Jose M Landry on 11-27-2022 Iron saturation [Mass fraction] 34.1 % 20-50 [facility] No Panel InformationOrdered By: Jose M Landry on 11-27-2022 14.622 mL/Min [facility] N/A [facility] Potassium [Moles/volume] in Serum or PlasmaOrdered By: Jose M Landry on 11-27-2022 Potassium [Moles/Vol] 4.2 mmol/L 3.5-5.1 [facility] Protein [Mass/volume] in Ser um or PlasmaOrdered By: Jose M Landry on 11-27-2022 Protein [Mass/Vol] 8.2 g/dL 6.4-8.9 [facility] Serum or plasma albumin/glob ulin mass ratioOrdered By: Jose M Landry on 11-27-2022 Albumin/Globulin [Mass ratio] 0.8 {ratio} [facility] Serum or plasma anion gap de terminationOrdered By: Jose M Landry on 11-27-2022 Anion gap [Moles/Vol] 14.5 mmol/L 6.0-15.0 [facility] Sodium [Moles/volume] in Ser um or PlasmaOrdered By: Jose M Landry on 11-27-2022 Sodium [Moles/Vol] 139 mmol/L 136-145 [facility] Transferrin [Mass/volume] in Serum or PlasmaOrdered By: Jose M Landry on 11-27-2022 Transferrin [Mass/Vol] 197 mg/dL 203-362 [facility] Urea nitrogen [Mass/volume] in Serum or PlasmaOrdered By: oJse M Landry on 11-27-2022 Urea nitrogen [Mass/Vol] 43 mg/dL 7- [facility] Alanine aminotransferase [En zymatic activity/volume] in Serum or PlasmaOrdered By: Jose M Landry on 11-15-2022 ALT [Catalytic activity/Vol] 5 U/L 752 [facility] Albumin [Mass/volume] in Ser um or Plasma by Bromocresol green (BCG) dye binding methoOrdered By: Jose M Landry on 11-15-2022 Albumin BCG dye [Mass/Vol] 3.4 g/dL 3.5-5.7 [facility] Alkaline phosphatase [Enzyma tic activity/volume] in Serum or PlasmaOrdered By: Jose M Landry on 11-15-2022 ALP [Catalytic activity/Vol] 127 U/L 34-104 [facility] Anisocytosis LM Ql (Bld)Orde red By: Jose M Landry on 11-15-2022 Anisocytosis Ql (Bld) Moderate [facility] Aspartate aminotransferase [ Enzymatic activity/volume] in Serum or PlasmaOrdered By: Jose M Landry on 11-15-2022 AST [Catalytic activity/Vol] 13 U/L 13-39 [facility] Basophils Auto (Bld) [#/Vol] Ordered By: Jose M Landry on 11-15-2022 Basophils (Bld) [#/Vol] N/A [facility] Basophils/100 WBC Auto (Bld) Ordered By: Jose M Landry on 11-15-2022 Basophils/100 WBC (Bld) N/A [facility] Bilirubin.total [Mass/volume ] in Serum or PlasmaOrdered By: Jose M Landry on 11-15-2022 Bilirubin [Mass/Vol] 0.3 mg/dL 0.3-1.0 [facility] Calcium [Mass/volume] in Ser um or PlasmaOrdered By: Jose M Landry on 11-15-2022 Calcium [Mass/Vol] 8.3 mg/dL 8.6-10.3 [facility] Carbon dioxide, total [Moles /volume] in Serum or PlasmaOrdered By: Jose M Landry on 11-15-2022 CO2 [Moles/Vol] 24.8 mmol/L 21.0-31.0 [facility] Chloride [Moles/volume] in S leti or PlasmaOrdered By: Jose M Landry on 11-15-2022 Chloride [Moles/Vol] 105 mmol/L 98-107 [facility] Creatinine [Mass/volume] in Serum or PlasmaOrdered By: Jose M Landry on 11-15-2022 Creatinine [Mass/Vol] 5.49 mg/dL 0.70-1.30 [facility] Eosinophils Auto (Bld) [#/Vo l]Ordered By: Jose M Landry on 11-15-2022 Eosinophils (Bld) [#/Vol] N/A [facility] Eosinophils/100 WBC Auto (Bl d)Ordered By: Jose M Landry on 11-15-2022 Eosinophils/100 WBC (Bld) N/A [facility] Eosinophils/100 WBC Manual c nt (Bld)Ordered By: Jose M Landry on 11-15-2022 Eosinophils/100 WBC (Bld) 8 % 1-3 [facility] Erythrocyte distribution wid th Auto (RBC) [Ratio]Ordered By: Jose M Landry on 11-15-2022 Erythrocyte distribution width (RBC) [Ratio] 16.9 % 12.0-14.8 [facility] Giant platelets/100 leukocyt es [Ratio] in Blood by Manual countOrdered By: Jose M Landry on 11-15-2022 Giant platelets/100 WBC Manual cnt (Bld) [Ratio] 6 /100{WBC} [facility] Globulin Calc (S) [Mass/Vol] Ordered By: Jose M Landry on 11-15-2022 Globulin (S) [Mass/Vol] 3.9 g/dL [facility] Glucose [Mass/volume] in Ser um or PlasmaOrdered By: Jose M Landry on 11-15-2022 Glucose [Mass/Vol] 133 mg/dL 70-100 [facility] Hematocrit Auto (Bld) [Volum e fraction]Ordered By: Jose M Landry on 11-15-2022 Hematocrit (Bld) [Volume fraction] 34.2 % 38.8-50.0 [facility] Hemoglobin [Mass/volume] in BloodOrdered By: Jose M Landry on 11-15-2022 Hemoglobin (Bld) [Mass/Vol] 10.8 g/dL 13.0-17.0 [facility] Hypochromia LM Ql (Bld)Order ed By: Jose M Landry on 11-15-2022 Hypochromia Ql (Bld) Slight [facility] Leukocytes [#/volume] correc lakesha for nucleated erythrocytes in Blood by Automated counOrdered By: Jose M Landry on 11-15-2022 WBC corrected for nucl RBC Auto (Bld) [#/Vol] 12.9 10*3/uL 4.1-10.5 [facility] Lymphocytes Auto (Bld) [#/Vo l]Ordered By: Jose M Landry on 11-15-2022 Lymphocytes (Bld) [#/Vol] N/A [facility] Lymphocytes/100 WBC Auto (Bl d)Ordered By: Jose M Landry on 11-15-2022 Lymphocytes/100 WBC (Bld) N/A [facility] Lymphocytes/100 WBC Manual c nt (Bld)Ordered By: Jose M Landry on 11-15-2022 Lymphocytes/100 WBC (Bld) 26 % 18-42 [facility] MCH Auto (RBC) [Entitic mass ]Ordered By: Jose M Landry on 11-15-2022 MCH (RBC) [Entitic mass] 30.3 pg 27.5-35.2 [facility] MCHC Auto (RBC) [Mass/Vol]Or dered By: Jose M Landry on 11-15-2022 MCHC (RBC) [Mass/Vol] 31.7 g/dL 32.5-35.6 [facility] MCV Auto (RBC) [Entitic vol] Ordered By: Jose M Landry on 11-15-2022 MCV (RBC) [Entitic vol] 95.6 fL 83.5-101 [facility] Macrocytes LM Ql (Bld)Ordere d By: Jose M Landry on 11-15-2022 Macrocytes Ql (Bld) Moderate [facility] Monocytes Auto (Bld) [#/Vol] Ordered By: Jose M Landry on 11-15-2022 Monocytes (Bld) [#/Vol] N/A [facility] Monocytes/100 WBC Auto (Bld) Ordered By: Jose M Landry on 11-15-2022 Monocytes/100 WBC (Bld) N/A [facility] Monocytes/100 WBC Manual cnt (Bld)Ordered By: Jose M Landry on 11-15-2022 Monocytes/100 WBC (Bld) 6 % 2-11 [facility] Neutrophils Auto (Bld) [#/Vo l]Ordered By: Jose M Landry on 11-15-2022 Neutrophils (Bld) [#/Vol] N/A [facility] Neutrophils/100 WBC Auto (Bl d)Ordered By: Jose M Landry on 11-15-2022 Neutrophils/100 WBC (Bld) N/A [facility] No Panel InformationOrdered By: Jose M Landry on 11-15-2022 10.361 mL/Min [facility] N/A [facility] Nucleated erythrocytes [Pres ence] in Blood by Automated countOrdered By: Jose M Landry on 11-15-2022 Nucleated RBC Auto Ql (Bld) N/A [facility] Platelet adequacy [Presence] in Blood by Light microscopyOrdered By: Jose M Landry on 11-15-2022 Platelets LM Ql (Bld) Normal Normal [facility] Platelet mean volume Auto (B ld) [Entitic vol]Ordered By: Jose M Landry on 11-15-2022 Platelet mean volume (Bld) [Entitic vol] 9.9 fL 6.6-10.1 [facility] Platelet morphology finding [Identifier] in BloodOrdered By: Jose M Landry on 11-15-2022 Platelet morphology finding Nom (Bld) N/A [facility] Platelets Auto (Bld) [#/Vol] Ordered By: Jose M Landry on 11-15-2022 Platelets (Bld) [#/Vol] 201 10*3/uL 150-450 [facility] Platelets Large [Presence] i n Blood by Light microscopyOrdered By: Jose M Landry on 11-15-2022 Platelets Large LM Ql (Bld) Slight [facility] Poikilocytosis [Presence] in Blood by Light microscopyOrdered By: Jose M Landry on 11-15-2022 Poikilocytosis LM Ql (Bld) [facility] Polychromasia [Presence] in Blood by Light microscopyOrdered By: Jose M Landry on 11-15-2022 Polychromasia LM Ql (Bld) Slight [facility] Potassium [Moles/volume] in Serum or PlasmaOrdered By: Jose M Landry on 11-15-2022 Potassium [Moles/Vol] 4.2 mmol/L 3.5-5.1 [facility] Protein [Mass/volume] in Ser um or PlasmaOrdered By: Jose M Landry on 11-15-2022 Protein [Mass/Vol] 7.3 g/dL 6.4-8.9 [facility] RBC Auto (Bld) [#/Vol]Ordere d By: Jose M Landry on 11-15-2022 RBC (Bld) [#/Vol] 3.57 10*6/uL 3.90-5.60 [facility] RBC morphologyOrdered By: Delmer Ladnry on 11-15-2022 RBC morphology finding Nom (Bld) N/A [facility] Segmented neutrophils/100 WB C Manual cnt (Bld)Ordered By: Jose M Landry on 11-15-2022 Segmented neutrophils/100 WBC (Bld) 61 % 50-70 [facility] Serum or plasma albumin/glob ulin mass ratioOrdered By: Jose M Landry on 11-15-2022 Albumin/Globulin [Mass ratio] 0.9 {ratio} [facility] Serum or plasma anion gap de terminationOrdered By: Jose M Landry on 11-15-2022 Anion gap [Moles/Vol] 14.4 mmol/L 6.0-15.0 [facility] Sodium [Moles/volume] in Ser um or PlasmaOrdered By: Jose M Landry on 11-15-2022 Sodium [Moles/Vol] 140 mmol/L 136-145 [facility] Target cellsOrdered By: Vivek Landry on 11-15-2022 Target cells LM Ql (Bld) Moderate [facility] Urea nitrogen [Mass/volume] in Serum or PlasmaOrdered By: Jose M Landry on 11-15-2022 Urea nitrogen [Mass/Vol] 42 mg/dL 10-29 [facility] WBC Auto (Bld) [#/Vol]Ordere d By: Jose M Landry on 11-15-2022 WBC (Bld) [#/Vol] 12.9 10*3/uL 4.1-10.5 [facility] Alanine aminotransferase [En zymatic activity/volume] in Serum or PlasmaOrdered By: Jose M Landry on 11-04-2022 ALT [Catalytic activity/Vol] 8 U/L [facility] Albumin [Mass/volume] in Ser um or Plasma by Bromocresol green (BCG) dye binding methoOrdered By: Jose M Landry on 11-04-2022 Albumin BCG dye [Mass/Vol] 3.3 g/dL 3.5-5.7 [facility] Alkaline phosphatase [Enzyma tic activity/volume] in Serum or PlasmaOrdered By: Jose M Landry on 11-04-2022 ALP [Catalytic activity/Vol] 169 U/L 34-104 [facility] Anisocytosis LM Ql (Bld)Orde red By: Jose M Landry on 11-04-2022 Anisocytosis Ql (Bld) Moderate [facility] Aspartate aminotransferase [ Enzymatic activity/volume] in Serum or PlasmaOrdered By: Jose M Landry on 11-04-2022 AST [Catalytic activity/Vol] 18 U/L 13-39 [facility] Band form neutrophils/100 WB C Manual cnt (Bld)Ordered By: Jose M Landry on 11-04-2022 Band form neutrophils/100 WBC (Bld) 1 % 0-5 [facility] Basophils Auto (Bld) [#/Vol] Ordered By: Jose M Landry on 11-04-2022 Basophils (Bld) [#/Vol] N/A [facility] Basophils/100 WBC Auto (Bld) Ordered By: Jose M Landry on 11-04-2022 Basophils/100 WBC (Bld) N/A [facility] Bilirubin.total [Mass/volume ] in Serum or PlasmaOrdered By: Jose M Landry on 11-04-2022 Bilirubin [Mass/Vol] 0.3 mg/dL 0.3-1.0 [facility] Calcium [Mass/volume] in Ser um or PlasmaOrdered By: Jose M Landry on 11-04-2022 Calcium [Mass/Vol] 8.2 mg/dL 8.6-10.3 [facility] Carbon dioxide, total [Moles /volume] in Serum or PlasmaOrdered By: Jose M Landry on 11-04-2022 CO2 [Moles/Vol] 24.6 mmol/L 21.0-31.0 [facility] Chloride [Moles/volume] in S leti or PlasmaOrdered By: Joes M Landry on 11-04-2022 Chloride [Moles/Vol] 107 mmol/L 98-107 [facility] Creatinine [Mass/volume] in Serum or PlasmaOrdered By: Jose M Landry 11-04-2022 Creatinine [Mass/Vol] 4.78 mg/dL 0.70-1.30 [facility] Eosinophils Auto (Bld) [#/Vo l]Ordered By: Jose M Landry on 11-04-2022 Eosinophils (Bld) [#/Vol] N/A [facility] Eosinophils/100 WBC Auto (Bl d)Ordered By: Jose M Landry on 11-04-2022 Eosinophils/100 WBC (Bld) N/A [facility] Eosinophils/100 WBC Manual c nt (Bld)Ordered By: Jose M Landry on 11-04-2022 Eosinophils/100 WBC (Bld) 5 % 1-3 [facility] Erythrocyte distribution wid th Auto (RBC) [Ratio]Ordered By: Jose M Landry on 11-04-2022 Erythrocyte distribution width (RBC) [Ratio] 18.4 % 12.0-14.8 [facility] Giant platelets/100 leukocyt es [Ratio] in Blood by Manual countOrdered By: Jose M Landry on 11-04-2022 Giant platelets/100 WBC Manual cnt (Bld) [Ratio] 16 /100{WBC} [facility] Globulin Calc (S) [Mass/Vol] Ordered By: Jose M Landry on 11-04-2022 Globulin (S) [Mass/Vol] 4.4 g/dL [facility] Glucose [Mass/volume] in Ser um or PlasmaOrdered By: Jose M Landry on 11-04-2022 Glucose [Mass/Vol] 113 mg/dL 70-100 [facility] Hematocrit Auto (Bld) [Volum e fraction]Ordered By: Jose M Landry on 11-04-2022 Hematocrit (Bld) [Volume fraction] 30.6 % 38.8-50.0 [facility] Hemoglobin [Mass/volume] in BloodOrdered By: Jose M Landry on 11-04-2022 Hemoglobin (Bld) [Mass/Vol] 9.9 g/dL 13.0-17.0 [facility] Hypochromia LM Ql (Bld)Order ed By: Jose M Landry on 11-04-2022 Hypochromia Ql (Bld) Moderate [facility] Leukocytes [#/volume] correc lakesha for nucleated erythrocytes in Blood by Automated counOrdered By: Jose M Landry on 11-04-2022 WBC corrected for nucl RBC Auto (Bld) [#/Vol] 10.8 10*3/uL 4.1-10.5 [facility] Lymphocytes Auto (Bld) [#/Vo l]Ordered By: Jose M Landry on 11-04-2022 Lymphocytes (Bld) [#/Vol] N/A [facility] Lymphocytes/100 WBC Auto (Bl d)Ordered By: Jose M Landry on 11-04-2022 Lymphocytes/100 WBC (Bld) N/A [facility] Lymphocytes/100 WBC Manual c nt (Bld)Ordered By: Jose M Landry on 11-04-2022 Lymphocytes/100 WBC (Bld) 31 % 18-42 [facility] MCH Auto (RBC) [Entitic mass ]Ordered By: Jose M Landry on 11-04-2022 MCH (RBC) [Entitic mass] 31.1 pg 27.5-35.2 [facility] MCHC Auto (RBC) [Mass/Vol]Or dered By: Jose M Landry on 11-04-2022 MCHC (RBC) [Mass/Vol] 32.4 g/dL 32.5-35.6 [facility] MCV Auto (RBC) [Entitic vol] Ordered By: Jose M Landry on 11-04-2022 MCV (RBC) [Entitic vol] 96.1 fL 83.5-101 [facility] Macrocytes LM Ql (Bld)Ordere d By: Jose M Landry on 11-04-2022 Macrocytes [facility] (Bld) [facility] Mon[facility] Auto (Bld) [#/Vol] Ordered By: Jose M Landry on 11-04-2022 Monocytes (Bld) [#/Vol] N/A [facility] Monocytes/100 WBC Auto (Bld) Ordered By: Jose M Landry on 11-04-2022 Monocytes/100 WBC (Bld) N/A [facility] Monocytes/100 WBC Manual cnt (Bld)Ordered By: Jose M Landry on 11-04-2022 Monocytes/100 WBC (Bld) 7 % 2-11 [facility] Neutrophils Auto (Bld) [#/Vo l]Ordered By: Jose M Landry on 11-04-2022 Neutrophils (Bld) [#/Vol] N/A [facility] Neutrophils/100 WBC Auto (Bl d)Ordered By: Jose M Landry on 11-04-2022 Neutrophils/100 WBC (Bld) N/A [facility] No Panel InformationOrdered By: Jose M Landry on 11-04-2022 12.235 mL/Min [facility] N/A [facility] Nucleated erythrocytes [Pres ence] in Blood by Automated countOrdered By: Jose M Landry on 11-04-2022 Nucleated RBC Auto Ql (Bld) N/A [facility] Ovalocyte detectionOrdered B y: Jose M Landry on 11-04-2022 Ovalocytes LM Ql (Bld) [facility] Platelet adequacy [Presence] in Blood by Light microscopyOrdered By: Jose M Landry on 11-04-2022 Platelets LM Ql (Bld) Normal Normal [facility] Platelet mean volume Auto (B ld) [Entitic vol]Ordered By: Jose M Landry on 11-04-2022 Platelet mean volume (Bld) [Entitic vol] 9.7 fL 6.6-10.1 [facility] Platelet morphology finding [Identifier] in BloodOrdered By: Jose M Landry on 11-04-2022 Platelet morphology finding Nom (Bld) N/A [facility] Platelets Auto (Bld) [#/Vol] Ordered By: Jose M Landry on 11-04-2022 Platelets (Bld) [#/Vol] 272 10*3/uL 150-450 [facility] Poikilocytosis [Presence] in Blood by Light microscopyOrdered By: Jose M Landry on 11-04-2022 Poikilocytosis LM Ql (Bld) Moderate [facility] Polychromasia [Presence] in Blood by Light microscopyOrdered By: Jose M Landry on 11-04-2022 Polychromasia LM Ql (Bld) Slight [facility] Potassium [Moles/volume] in Serum or PlasmaOrdered By: Jose M Landry on 11-04-2022 Potassium [Moles/Vol] 5.0 mmol/L 3.5-5.1 [facility] Protein [Mass/volume] in Ser um or PlasmaOrdered By: Jose M Landry on 11-04-2022 Protein [Mass/Vol] 7.7 g/dL 6.4-8.9 [facility] RBC Auto (Bld) [#/Vol]Ordere d By: Jose M Landry on 11-04-2022 RBC (Bld) [#/Vol] 3.19 10*6/uL 3.90-5.60 [facility] RBC morphologyOrdered By: Delmer Landry on 11-04-2022 RBC morphology finding Nom (Bld) N/A [facility] Schistocytes [Presence] in B lood by Light microscopyOrdered By: Jose M Landry on 11-04-2022 Schistocytes LM Ql (Bld) Slight [facility] Segmented neutrophils/100 WB C Manual cnt (Bld)Ordered By: Jose M Landry on 11-04-2022 Segmented neutrophils/100 WBC (Bld) 56 % 50-70 [facility] Serum or plasma albumin/glob ulin mass ratioOrdered By: Jose M Landry on 11-04-2022 Albumin/Globulin [Mass ratio] 0.8 {ratio} [facility] Serum or plasma anion gap de terminationOrdered By: Jose M Landry on 11-04-2022 Anion gap [Moles/Vol] 14.4 mmol/L 6.0-15.0 [facility] Sodium [Moles/volume] in Ser um or PlasmaOrdered By: Jose M Landry on 11-04-2022 Sodium [Moles/Vol] 141 mmol/L 136-145 [facility] Target cellsOrdered By: Vivek Landry on 11-04-2022 Target cells LM Ql (Bld) Moderate [facility] Teardrop cell detectionOrder ed By: Jose M Landry on 11-04-2022 Dacrocytes LM Ql (Bld) Slight [facility] Urea nitrogen [Mass/volume] in Serum or PlasmaOrdered By: Jose M Landry on 11-04-2022 Urea nitrogen [Mass/Vol] 32 mg/dL 7-25 [facility] WBC Auto (Bld) [#/Vol]Ordere d By: Jose M Landry on 11-04-2022 WBC (Bld) [#/Vol] 10.8 10*3/uL 4.1-10.5 [facility] Acanthocytes [Presence] in B lood by Light microscopyOrdered By: Riya Sampson on 10-24-2022 Acanthocytes LM Ql (Bld) Slight [facility] Anisocytosis LM Ql (Bld)Orde red By: Riya Sampson on 10-24-2022 Anisocytosis Ql (Bld) Moderate [facility] Basophils Auto (Bld) [#/Vol] Ordered By: Riya Sampson on 10-24-2022 Basophils (Bld) [#/Vol] N/A [facility] Basophils/100 WBC Auto (Bld) Ordered By: Riya Sampson on 10-24-2022 Basophils/100 WBC (Bld) N/A [facility] Basophils/100 WBC Manual cnt (Bld)Ordered By: Riya Sampson on 10-24-2022 Basophils/100 WBC (Bld) 1 % 0-2 [facility] Calcium [Mass/volume] in Ser um or PlasmaOrdered By: Riya Sampson on 10-24-2022 Calcium [Mass/Vol] 7.4 mg/dL 8.6-10.3 [facility] Carbon dioxide, total [Moles /volume] in Serum or PlasmaOrdered By: Riya Sampson on 10-24-2022 CO2 [Moles/Vol] 23.6 mmol/L 21.0-31.0 [facility] Chloride [Moles/volume] in S leti or PlasmaOrdered By: Riya Sampson on 10-24-2022 Chloride [Moles/Vol] 111 mmol/L 98-107 [facility] Creatinine [Mass/volume] in Serum or PlasmaOrdered By: Riya Sampson on 10-24-2022 Creatinine [Mass/Vol] 2.78 mg/dL 0.70-1.30 [facility] Eosinophils Auto (Bld) [#/Vo l]Ordered By: Riya Sampson on 10-24-2022 Eosinophils (Bld) [#/Vol] N/A [facility] Eosinophils/100 WBC Auto (Bl d)Ordered By: Riya Sampson on 10-24-2022 Eosinophils/100 WBC (Bld) N/A [facility] Eosinophils/100 WBC Manual c nt (Bld)Ordered By: Riya Sampson on 10-24-2022 Eosinophils/100 WBC (Bld) 4 % 1-3 [facility] Erythrocyte distribution wid th Auto (RBC) [Ratio]Ordered By: Riya Sampson on 10-24-2022 Erythrocyte distribution width (RBC) [Ratio] 18.1 % 12.0-14.8 [facility] Giant platelets/100 leukocyt es [Ratio] in Blood by Manual countOrdered By: Riya Sampson on 10-24-2022 Giant platelets/100 WBC Manual cnt (Bld) [Ratio] 7 /100{WBC} [facility] Glucose Glucometer (dC) [M ass/Vol]Ordered By: Riya Sampson on 10-24-2022 Glucose [Mass/Vol] 99 mg/dL [facility] Glucose [Mass/volume] in Ser um or PlasmaOrdered By: Riya Sampson on 10-24-2022 Glucose [Mass/Vol] 76 mg/dL 70-100 [facility] Hematocrit Auto (Bld) [Volum e fraction]Ordered By: Riya Sampson on 10-24-2022 Hematocrit (Bld) [Volume fraction] 24.4 % 38.8-50.0 [facility] Hemoglobin [Mass/volume] in BloodOrdered By: Riya Sampson on 10-24-2022 Hemoglobin (Bld) [Mass/Vol] 7.9 g/dL 13.0-17.0 [facility] Hypochromia LM Ql (Bld)Order ed By: Riya Sampson on 10-24-2022 Hypochromia Ql (Bld) Moderate [facility] Leukocytes [#/volume] correc lakesha for nucleated erythrocytes in Blood by Automated counOrdered By: Riya Sampson on 10-24-2022 WBC corrected for nucl RBC Auto (Bld) [#/Vol] 10.3 10*3/uL 4.1-10.5 [facility] Lymphocytes Auto (Bld) [#/Vo l]Ordered By: Riya Sampson on 10-24-2022 Lymphocytes (Bld) [#/Vol] N/A [facility] Lymphocytes/100 WBC Auto (Bl d)Ordered By: Riya Sampson on 10-24-2022 Lymphocytes/100 WBC (Bld) N/A [facility] Lymphocytes/100 WBC Manual c nt (Bld)Ordered By: Riya Sampson on 10-24-2022 Lymphocytes/100 WBC (Bld) 28 % 18-42 [facility] MCH Auto (RBC) [Entitic mass ]Ordered By: Riya Sampson on 10-24-2022 MCH (RBC) [Entitic mass] 32.4 pg 27.5-35.2 [facility] MCHC Auto (RBC) [Mass/Vol]Or dered By: Riya Sampson on 10-24-2022 MCHC (RBC) [Mass/Vol] 32.5 g/dL 32.5-35.6 [facility] MCV Auto (RBC) [Entitic vol] Ordered By: Riya Sampson on 10-24-2022 MCV (RBC) [Entitic vol] 99.8 fL 83.5-101 [facility] Macrocytes LM Ql (Bld)Ordere d By: Riya Sampson on 10-24-2022 Macrocytes Ql (Bld) Moderate [facility] Microcytes LM Ql (Bld)Ordere d By: Riya Sampson on 10-24-2022 Microcytes Ql (Bld) Slight [facility] Monocytes Auto (Bld) [#/Vol] Ordered By: Riya Sampson on 10-24-2022 Monocytes (Bld) [#/Vol] N/A [facility] Monocytes/100 WBC Auto (Bld) Ordered By: Riya Sampson on 10-24-2022 Monocytes/100 WBC (Bld) N/A [facility] Monocytes/100 WBC Manual cnt (Bld)Ordered By: Riya Sampson on 10-24-2022 Monocytes/100 WBC (Bld) 7 % 2-11 [facility] Myelocytes/100 WBC Manual cn t (Bld)Ordered By: Riya Sampson on 10-24-2022 Myelocytes/100 WBC (Bld) 1 % 0-0 [facility] Neutrophils Auto (Bld) [#/Vo l]Ordered By: Riya Sampson on 10-24-2022 Neutrophils (Bld) [#/Vol] N/A [facility] Neutrophils/100 WBC Auto (Bl d)Ordered By: Riya Sampson on 10-24-2022 Neutrophils/100 WBC (Bld) N/A [facility] No Panel InformationOrdered By: Riya Sampson on 10-24-2022 23.445 mL/Min [facility] 32.10 [facility] Nucleated erythrocytes [Pres ence] in Blood by Automated countOrdered By: Riya Sampson on 10-24-2022 Nucleated RBC Auto Ql (Bld) N/A [facility] Platelet adequacy [Presence] in Blood by Light microscopyOrdered By: Riya Sampson on 10-24-2022 Platelets LM Ql (Bld) Normal Normal [facility] Platelet mean volume Auto (B ld) [Entitic vol]Ordered By: Riya Sampson on 10-24-2022 Platelet mean volume (Bld) [Entitic vol] 10.2 fL 6.6-10.1 [facility] Platelet morphology finding [Identifier] in BloodOrdered By: Riya Sampson on 10-24-2022 Platelet morphology finding Nom (Bld) N/A [facility] Platelets Auto (Bld) [#/Vol] Ordered By: Riya Sampson on 10-24-2022 Platelets (Bld) [#/Vol] 244 10*3/uL 150-450 [facility] Platelets Large [Presence] i n Blood by Light microscopyOrdered By: Riya Sampson on 10-24-2022 Platelets Large LM Ql (Bld) Slight [facility] Poikilocytosis [Presence] in Blood by Light microscopyOrdered By: Riya Sampson on 10-24-2022 Poikilocytosis LM Ql (Bld) Slight [facility] Polychromasia [Presence] in Blood by Light microscopyOrdered By: Riya Sampson on 10-24-2022 Polychromasia LM Ql (Bld) [facility] Potassium [Moles/volume] in Serum or PlasmaOrdered By: Riya Sampson on 10-24-2022 Potassium [Moles/Vol] 4.2 mmol/L 3.5-5.1 [facility] RBC Auto (Bld) [#/Vol]Ordere d By: Riya Sampson on 10-24-2022 RBC (Bld) [#/Vol] 2.45 10*6/uL 3.90-5.60 [facility] RBC morphologyOrdered By: Angelita Sampson on 10-24-2022 RBC morphology finding Nom (Bld) N/A [facility] Schistocytes [Presence] in B lood by Light microscopyOrdered By: Riya Sampson on 10-24-2022 Schistocytes LM Ql (Bld) [facility] Segmented neutrophils/100 WB C Manual cnt (Bld)Ordered By: Riya Sampson on 10-24-2022 Segmented neutrophils/100 WBC (Bld) 59 % 50-70 [facility] Serum or plasma anion gap de terminationOrdered By: Riya Sampson on 10-24-2022 Anion gap [Moles/Vol] 11.6 mmol/L 6.0-15.0 [facility] Smudge cell detectionOrdered By: Riya Sampson on 10-24-2022 Smudge cells LM Ql (Bld) [facility] Sodium [Moles/volume] in Ser um or PlasmaOrdered By: Riya Sampson on 10-24-2022 Sodium [Moles/Vol] 142 mmol/L 136-145 [facility] Target cellsOrdered By: Bhavin Sampson on 10-24-2022 Target cells LM Ql (Bld) Moderate [facility] Urea nitrogen [Mass/volume] in Serum or PlasmaOrdered By: Riya Sampson on 10-24-2022 Urea nitrogen [Mass/Vol] 30 mg/dL 7-25 [facility] WBC Auto (Bld) [#/Vol]Ordere d By: Riya Sampson on 10-24-2022 WBC (Bld) [#/Vol] 10.3 10*3/uL 4.1-10.5 [facility] C reactive protein [Mass/vol ume] in Serum or PlasmaOrdered By: Riya Sampson on 10-23-2022 CRP [Mass/Vol] 2.1 mg/dL 0.0-0.5 [facility] Erythrocyte sedimentation ra te by Photometric methodOrdered By: Riya Sampson on 10-23-2022 ESR Photometric method (Bld) [Velocity] 98 mm/hr 0-19 [facility] Alanine aminotransferase [En zymatic activity/volume] in Serum or PlasmaOrdered By: Singh Kessler on 10-22-2022 ALT [Catalytic activity/Vol] 6 U/L 7-52 [facility] Albumin [Mass/volume] in Ser um or Plasma by Bromocresol green (BCG) dye binding methoOrdered By: Singh Kessler on 10-22-2022 Albumin BCG dye [Mass/Vol] 2.9 g/dL 3.5-5.7 [facility] Alkaline phosphatase [Enzyma tic activity/volume] in Serum or PlasmaOrdered By: Singh Kessler on 10-22-2022 ALP [Catalytic activity/Vol] 147 U/L 34-104 [facility] Anisocytosis LM Ql (Bld)Orde red By: Singh Kessler on 10-22-2022 Anisocytosis Ql (Bld) Moderate [facility] Aspartate aminotransferase [ Enzymatic activity/volume] in Serum or PlasmaOrdered By: Singh Kessler on 10-22-2022 AST [Catalytic activity/Vol] 18 U/L 13-39 [facility] Bacterial blood cultureOrder ed By: Singh Kessler on 10-22-2022 Bacteria identified Cx Nom (Bld) NO GROWTH 5 DAYS [facility] Basophils Auto (Bld) [#/Vol] Ordered By: Singh Kessler on 10-22-2022 Basophils (Bld) [#/Vol] N/A [facility] Basophils/100 WBC Auto (Bld) Ordered By: Singh Kessler on 10-22-2022 Basophils/100 WBC (Bld) N/A [facility] Basophils/100 WBC Manual cnt (Bld)Ordered By: Singh Kessler on 10-22-2022 Basophils/100 WBC (Bld) 1 % 0-2 [facility] Bilirubin.total [Mass/volume ] in Serum or PlasmaOrdered By: Singh Kessler on 10-22-2022 Bilirubin [Mass/Vol] 0.2 mg/dL 0.3-1.0 [facility] Calcium [Mass/volume] in Ser um or PlasmaOrdered By: Singh Kessler on 10-22-2022 Calcium [Mass/Vol] 7.5 mg/dL 8.6-10.3 [facility] Carbon dioxide, total [Moles /volume] in Serum or PlasmaOrdered By: Singh Kessler on 10-22-2022 CO2 [Moles/Vol] 23.2 mmol/L 21.0-31.0 [facility] Chloride [Moles/volume] in S leti or PlasmaOrdered By: Singh Kessler on 10-22-2022 Chloride [Moles/Vol] 110 mmol/L 98-107 [facility] Creatinine [Mass/volume] in Serum or PlasmaOrdered By: Singh Kessler on 10-22-2022 Creatinine [Mass/Vol] 2.92 mg/dL 0.70-1.30 [facility] Eosinophils Auto (Bld) [#/Vo l]Ordered By: Singh Kessler on 10-22-2022 Eosinophils (Bld) [#/Vol] N/A [facility] Eosinophils/100 WBC Auto (Bl d)Ordered By: Singh Kessler on 10-22-2022 Eosinophils/100 WBC (Bld) N/A [facility] Eosinophils/100 WBC Manual c nt (Bld)Ordered By: Singh Kessler on 10-22-2022 Eosinophils/100 WBC (Bld) 8 % 1-3 [facility] Erythrocyte distribution wid th Auto (RBC) [Ratio]Ordered By: Singh Kessler on 10-22-2022 Erythrocyte distribution width (RBC) [Ratio] 18.7 % 12.0-14.8 [facility] Giant platelets/100 leukocyt es [Ratio] in Blood by Manual countOrdered By: Singh Kessler on 10-22-2022 Giant platelets/100 WBC Manual cnt (Bld) [Ratio] 1 /100{WBC} [facility] Globulin Calc (S) [Mass/Vol] Ordered By: Singh Kessler on 10-22-2022 Globulin (S) [Mass/Vol] 4.3 g/dL [facility] Glucose Glucometer (BldC) [M ass/Vol]Ordered By: Singh Kessler on 10-22-2022 Glucose [Mass/Vol] 72 mg/dL [facility] Glucose [Mass/volume] in Ser um or PlasmaOrdered By: Singh Kessler on 10-22-2022 Glucose [Mass/Vol] 65 mg/dL 70-100 [facility] Hematocrit Auto (Bld) [Volum e fraction]Ordered By: Singh Kessler on 10-22-2022 Hematocrit (Bld) [Volume fraction] 23.9 % 38.8-50.0 [facility] Hemoglobin [Mass/volume] in BloodOrdered By: Singh Kessler on 10-22-2022 Hemoglobin (Bld) [Mass/Vol] 7.7 g/dL 13.0-17.0 [facility] Hypochromia LM Ql (Bld)Order ed By: Singh Kessler on 10-22-2022 Hypochromia Ql (Bld) Slight [facility] Leukocytes [#/volume] correc lakesha for nucleated erythrocytes in Blood by Automated counOrdered By: Singh Kessler on 10-22-2022 WBC corrected for nucl RBC Auto (Bld) [#/Vol] 11.3 10*3/uL 4.1-10.5 [facility] Lymphocytes Auto (Bld) [#/Vo l]Ordered By: Singh Kessler on 10-22-2022 Lymphocytes (Bld) [#/Vol] N/A [facility] Lymphocytes/100 WBC Auto (Bl d)Ordered By: Singh Kessler on 10-22-2022 Lymphocytes/100 WBC (Bld) N/A [facility] Lymphocytes/100 WBC Manual c nt (Bld)Ordered By: Singh Kessler on 10-22-2022 Lymphocytes/100 WBC (Bld) 34 % 18-42 [facility] MCH Auto (RBC) [Entitic mass ]Ordered By: Singh Kessler on 10-22-2022 MCH (RBC) [Entitic mass] 30.8 pg 27.5-35.2 [facility] MCHC Auto (RBC) [Mass/Vol]Or dered By: Singh Kessler on 10-22-2022 MCHC (RBC) [Mass/Vol] 32.3 g/dL 32.5-35.6 [facility] MCV Auto (RBC) [Entitic vol] Ordered By: Singh Kessler on 10-22-2022 MCV (RBC) [Entitic vol] 95.5 fL 83.5-101 [facility] Monocytes Auto (Bld) [#/Vol] Ordered By: Singh Kessler on 10-22-2022 Monocytes (Bld) [#/Vol] N/A [facility] Monocytes/100 WBC Auto (Bld) Ordered By: Singh Kessler on 10-22-2022 Monocytes/100 WBC (Bld) N/A [facility] Monocytes/100 WBC Manual cnt (Bld)Ordered By: Singh Kessler on 10-22-2022 Monocytes/100 WBC (Bld) 4 % 2-11 [facility] Neutrophils Auto (Bld) [#/Vo l]Ordered By: Singh Kessler on 10-22-2022 Neutrophils (Bld) [#/Vol] N/A [facility] Neutrophils/100 WBC Auto (Bl d)Ordered By: Singh Kessler on 10-22-2022 Neutrophils/100 WBC (Bld) N/A [facility] No Panel InformationOrdered By: Singh Kessler on 10-22-2022 22.102 mL/Min [facility] 30.04 [facility] Nucleated erythrocytes [Pres ence] in Blood by Automated countOrdered By: Singh Kessler on 10-22-2022 Nucleated RBC Auto Ql (Bld) N/A [facility] Platelet adequacy [Presence] in Blood by Light microscopyOrdered By: Singh Kessler on 10-22-2022 Platelets LM Ql (Bld) Normal Normal [facility] Platelet mean volume Auto (B ld) [Entitic vol]Ordered By: Singh Kessler on 10-22-2022 Platelet mean volume (Bld) [Entitic vol] 10.0 fL 6.6-10.1 [facility] Platelet morphology finding [Identifier] in BloodOrdered By: Singh Kessler on 10-22-2022 Platelet morphology finding Nom (Bld) N/A [facility] Platelets Auto (Bld) [#/Vol] Ordered By: Singh Kessler on 10-22-2022 Platelets (Bld) [#/Vol] 246 10*3/uL 150-450 [facility] Poikilocytosis [Presence] in Blood by Light microscopyOrdered By: Singh Kessler on 10-22-2022 Poikilocytosis LM Ql (Bld) Slight [facility] Polychromasia [Presence] in Blood by Light microscopyOrdered By: Singh Kessler on 10-22-2022 Polychromasia LM Ql (Bld) [facility] Potassium [Moles/volume] in Serum or PlasmaOrdered By: Singh Kessler on 10-22-2022 Potassium [Moles/Vol] 3.9 mmol/L 3.5-5.1 [facility] Protein [Mass/volume] in Ser um or PlasmaOrdered By: Singh Kessler on 10-22-2022 Protein [Mass/Vol] 7.2 g/dL 6.4-8.9 [facility] RBC Auto (Bld) [#/Vol]Ordere d By: Singh Kessler on 10-22-2022 RBC (Bld) [#/Vol] 2.50 10*6/uL 3.90-5.60 [facility] RBC morphologyOrdered By: Ha Kessler on 10-22-2022 RBC morphology finding Nom (Bld) N/A [facility] Segmented neutrophils/100 WB C Manual cnt (Bld)Ordered By: Singh Kessler on 10-22-2022 Segmented neutrophils/100 WBC (Bld) 53 % 50-70 [facility] Serum or plasma albumin/glob ulin mass ratioOrdered By: Singh Kessler on 10-22-2022 Albumin/Globulin [Mass ratio] 0.7 {ratio} [facility] Serum or plasma anion gap de terminationOrdered By: Singh Kessler on 10-22-2022 Anion gap [Moles/Vol] 12.7 mmol/L 6.0-15.0 [facility] Sodium [Moles/volume] in Ser um or PlasmaOrdered By: Singh Kessler on 10-22-2022 Sodium [Moles/Vol] 142 mmol/L 136-145 [facility] Target cellsOrdered By: Saurav Kessler on 10-22-2022 Target cells LM Ql (Bld) Slight [facility] Urea nitrogen [Mass/volume] in Serum or PlasmaOrdered By: Singh Kessler on 10-22-2022 Urea nitrogen [Mass/Vol] 26 mg/dL 7-25 [facility] WBC Auto (Bld) [#/Vol]Ordere d By: Singh Kessler on 10-22-2022 WBC (Bld) [#/Vol] 11.3 10*3/uL 4.1-10.5 [facility] Alanine aminotransferase [En zymatic activity/volume] in Serum or PlasmaOrdered By: Singh Kessler on 10-21-2022 ALT [Catalytic activity/Vol] 7 U/L 7-52 [facility] Albumin [Mass/volume] in Ser um or Plasma by Bromocresol green (BCG) dye binding methoOrdered By: Singh Kessler on 10-21-2022 Albumin BCG dye [Mass/Vol] 2.9 g/dL 3.5-5.7 [facility] Alkaline phosphatase [Enzyma tic activity/volume] in Serum or PlasmaOrdered By: Singh Kessler on 10-21-2022 ALP [Catalytic activity/Vol] 152 U/L 34-104 [facility] Aspartate aminotransferase [ Enzymatic activity/volume] in Serum or PlasmaOrdered By: Singh Kessler on 10-21-2022 AST [Catalytic activity/Vol] 18 U/L 13-39 [facility] Bacterial blood cultureOrder ed By: Singh Kessler on 10-21-2022 Bacteria identified Cx Nom (Bld) NO GROWTH 5 DAYS [facility] Basophils Auto (Bld) [#/Vol] Ordered By: Singh Kessler on 10-21-2022 Basophils (Bld) [#/Vol] 0.1 10*3/uL 0.0-0.2 [facility] Basophils/100 WBC Auto (Bld) Ordered By: Singh Kessler on 10-21-2022 Basophils/100 WBC (Bld) 1.0 % . [facility] Bilirubin.total [Mass/volume ] in Serum or PlasmaOrdered By: Singh Kessler on 10-21-2022 Bilirubin [Mass/Vol] 0.3 mg/dL 0.3-1.0 [facility] Calcium [Mass/volume] in Ser um or PlasmaOrdered By: Singh Kessler on 10-21-2022 Calcium [Mass/Vol] 7.6 mg/dL 8.6-10.3 [facility] Carbon dioxide, total [Moles /volume] in Serum or PlasmaOrdered By: Singh Kessler on 10-21-2022 CO2 [Moles/Vol] 25.1 mmol/L 21.0-31.0 [facility] Chloride [Moles/volume] in S leti or PlasmaOrdered By: Singh Kessler on 10-21-2022 Chloride [Moles/Vol] 109 mmol/L 98-107 [facility] Creatinine [Mass/volume] in Serum or PlasmaOrdered By: Singh Kessler 10-21-2022 Creatinine [Mass/Vol] 2.84 mg/dL 0.70-1.30 [facility] Eosinophils Auto (Bld) [#/Vo l]Ordered By: Singh Kessler 10-21-2022 Eosinophils (Bld) [#/Vol] 0.5 10*3/uL 0.0-0.45 [facility] Eosinophils/100 WBC Auto (Bl d)Ordered By: Singh Kessler 10-21-2022 Eosinophils/100 WBC (Bld) 3.8 % . [facility] Erythrocyte distribution wid th Auto (RBC) [Ratio]Ordered By: Singh Kessler on 10-21-2022 Erythrocyte distribution width (RBC) [Ratio] 18.3 % 12.0-14.8 [facility] Globulin Calc (S) [Mass/Vol] Ordered By: Singh Kessler 10-21-2022 Globulin (S) [Mass/Vol] 4.3 g/dL [facility] Glucose [Mass/volume] in Ser um or PlasmaOrdered By: Singh Kessler 10-21-2022 Glucose [Mass/Vol] 136 mg/dL 70-100 [facility] Hematocrit Auto (Bld) [Volum e fraction]Ordered By: Singh Kessler on 10-21-2022 Hematocrit (Bld) [Volume fraction] 24.5 % 38.8-50.0 [facility] Hemoglobin [Mass/volume] in BloodOrdered By: Singh Kessler on 10-21-2022 Hemoglobin (Bld) [Mass/Vol] 7.9 g/dL 13.0-17.0 [facility] Leukocytes [#/volume] correc lakesha for nucleated erythrocytes in Blood by Automated counOrdered By: Singh Kessler on 10-21-2022 WBC corrected for nucl RBC Auto (Bld) [#/Vol] 13.4 10*3/uL 4.1-10.5 [facility] Lymphocytes Auto (Bld) [#/Vo l]Ordered By: Singh Kessler on 10-21-2022 Lymphocytes (Bld) [#/Vol] 5.2 10*3/uL 1.00-4.8 [facility] Lymphocytes/100 WBC Auto (Bl d)Ordered By: Singh Kessler on 10-21-2022 Lymphocytes/100 WBC (Bld) 38.9 % . [facility] MCH Auto (RBC) [Entitic mass ]Ordered By: Singh Kessler on 10-21-2022 MCH (RBC) [Entitic mass] 30.5 pg 27.5-35.2 [facility] MCHC Auto (RBC) [Mass/Vol]Or dered By: Singh Kessler on 10-21-2022 MCHC (RBC) [Mass/Vol] 32.3 g/dL 32.5-35.6 [facility] MCV Auto (RBC) [Entitic vol] Ordered By: Singh Kessler on 10-21-2022 MCV (RBC) [Entitic vol] 94.6 fL 83.5-101 [facility] Monocytes Auto (Bld) [#/Vol] Ordered By: Singh Kessler on 10-21-2022 Monocytes (Bld) [#/Vol] 1.3 10*3/uL 0.0-0.8 [facility] Monocytes/100 WBC Auto (Bld) Ordered By: Singh Kessler on 10-21-2022 Monocytes/100 WBC (Bld) 9.9 % . [facility] Neutrophils Auto (Bld) [#/Vo l]Ordered By: Singh Kessler on 10-21-2022 Neutrophils (Bld) [#/Vol] 6.2 10*3/uL 1.8-7.7 [facility] Neutrophils/100 WBC Auto (Bl d)Ordered By: Singh Kessler on 10-21-2022 Neutrophils/100 WBC (Bld) 46.4 % . [facility] No Panel InformationOrdered By: Singh Kessler on 10-21-2022 22.852 mL/Min [facility] 30.88 [facility] Nucleated erythrocytes [Pres ence] in Blood by Automated countOrdered By: Singh Kessler on 10-21-2022 Nucleated RBC Auto Ql (Bld) 0.1 /100{WBC} 0-0.5 [facility] Platelet mean volume Auto (B ld) [Entitic vol]Ordered By: Singh Kessler on 10-21-2022 Platelet mean volume (Bld) [Entitic vol] 9.2 fL 6.6-10.1 [facility] Platelets Auto (Bld) [#/Vol] Ordered By: Singh Kessler on 10-21-2022 Platelets (Bld) [#/Vol] 256 10*3/uL 150-450 [facility] Potassium [Moles/volume] in Serum or PlasmaOrdered By: Singh Kessler on 10-21-2022 Potassium [Moles/Vol] 4.2 mmol/L 3.5-5.1 [facility] Protein [Mass/volume] in Ser um or PlasmaOrdered By: Singh Kessler on 10-21-2022 Protein [Mass/Vol] 7.2 g/dL 6.4-8.9 [facility] RBC Auto (Bld) [#/Vol]Ordere d By: Singh Kessler on 10-21-2022 RBC (Bld) [#/Vol] 2.59 10*6/uL 3.90-5.60 [facility] Serum or plasma albumin/glob ulin mass ratioOrdered By: Singh Kessler on 10-21-2022 Albumin/Globulin [Mass ratio] 0.7 {ratio} [facility] Serum or plasma anion gap de terminationOrdered By: Singh Kessler on 10-21-2022 Anion gap [Moles/Vol] 11.1 mmol/L 6.0-15.0 [facility] Sodium [Moles/volume] in Ser um or PlasmaOrdered By: Singh Kessler on 10-21-2022 Sodium [Moles/Vol] 141 mmol/L 136-145 [facility] Urea nitrogen [Mass/volume] in Serum or PlasmaOrdered By: Singh Kessler on 10-21-2022 Urea nitrogen [Mass/Vol] 29 mg/dL 7-25 [facility] WBC Auto (Bld) [#/Vol]Ordere d By: Singh Kessler on 10-21-2022 WBC (Bld) [#/Vol] 13.4 10*3/uL 4.1-10.5 [facility] Basophils Auto (Bld) [#/Vol] Ordered By: Riya Pitt on 10-16-2022 Basophils (Bld) [#/Vol] 0.1 10*3/uL 0.0-0.2 [facility] Basophils/100 WBC Auto (Bld) Ordered By: Riya Pitt on 10-16-2022 Basophils/100 WBC (Bld) 0.9 % . [facility] Creatinine [Mass/volume] in Serum or PlasmaOrdered By: Riya Pitt on 10-16-2022 Creatinine [Mass/Vol] 3.07 mg/dL 0.70-1.30 [facility] Eosinophils Auto (Bld) [#/Vo l]Ordered By: Riya Pitt on 10-16-2022 Eosinophils (Bld) [#/Vol] 0.6 10*3/uL 0.0-0.45 [facility] Eosinophils/100 WBC Auto (Bl d)Ordered By: Riya Pitt on 10-16-2022 Eosinophils/100 WBC (Bld) 5.1 % . [facility] Erythrocyte distribution wid th Auto (RBC) [Ratio]Ordered By: Riya Pitt on 10-16-2022 Erythrocyte distribution width (RBC) [Ratio] 17.3 % 12.0-14.8 [facility] Erythrocyte sedimentation ra te by Photometric methodOrdered By: Riya Pitt on 10-16-2022 ESR Photometric method (Bld) [Velocity] 80 mm/hr 0-19 [facility] Hematocrit Auto (Bld) [Volum e fraction]Ordered By: Riya Pitt on 10-16-2022 Hematocrit (Bld) [Volume fraction] 23.9 % 38.8-50.0 [facility] Hemoglobin [Mass/volume] in BloodOrdered By: Riya Pitt on 10-16-2022 Hemoglobin (Bld) [Mass/Vol] 7.6 g/dL 13.0-17.0 [facility] Leukocytes [#/volume] correc lakesha for nucleated erythrocytes in Blood by Automated counOrdered By: Riya Pitt on 10-16-2022 WBC corrected for nucl RBC Auto (Bld) [#/Vol] 11.7 10*3/uL 4.1-10.5 [facility] Lymphocytes Auto (Bld) [#/Vo l]Ordered By: Riya Pitt on 10-16-2022 Lymphocytes (Bld) [#/Vol] 4.9 10*3/uL 1.00-4.8 [facility] Lymphocytes/100 WBC Auto (Bl d)Ordered By: Riya Pitt on 10-16-2022 Lymphocytes/100 WBC (Bld) 41.3 % . [facility] MCH Auto (RBC) [Entitic mass ]Ordered By: Riya Pitt on 10-16-2022 MCH (RBC) [Entitic mass] 30.4 pg 27.5-35.2 [facility] MCHC Auto (RBC) [Mass/Vol]Or dered By: Riya Pitt on 10-16-2022 MCHC (RBC) [Mass/Vol] 31.8 g/dL 32.5-35.6 [facility] MCV Auto (RBC) [Entitic vol] Ordered By: Riya Pitt on 10-16-2022 MCV (RBC) [Entitic vol] 95.7 fL 83.5-101 [facility] Monocytes Auto (Bld) [#/Vol] Ordered By: Riya Pitt on 10-16-2022 Monocytes (Bld) [#/Vol] 0.7 10*3/uL 0.0-0.8 [facility] Monocytes/100 WBC Auto (Bld) Ordered By: Riya Pitt on 10-16-2022 Monocytes/100 WBC (Bld) 6.2 % . [facility] Neutrophils Auto (Bld) [#/Vo l]Ordered By: Riya Pitt on 10-16-2022 Neutrophils (Bld) [#/Vol] 5.5 10*3/uL 1.8-7.7 [facility] Neutrophils/100 WBC Auto (Bl d)Ordered By: Riya Pitt on 10-16-2022 Neutrophils/100 WBC (Bld) 46.5 % . [facility] No Panel InformationOrdered By: Riya Pitt on 10-16-2022 20.813 mL/Min [facility] N/A [facility] Nucleated erythrocytes [Pres ence] in Blood by Automated countOrdered By: Riya Pitt on 10-16-2022 Nucleated RBC Auto Ql (Bld) 0.9 /100{WBC} 0-0.5 [facility] Platelet mean volume Auto (B ld) [Entitic vol]Ordered By: Riya Pitt on 10-16-2022 Platelet mean volume (Bld) [Entitic vol] 9.9 fL 6.6-10.1 [facility] Platelets Auto (Bld) [#/Vol] Ordered By: Riya Pitt on 10-16-2022 Platelets (Bld) [#/Vol] 254 10*3/uL 150-450 [facility] RBC Auto (Bld) [#/Vol]Ordere d By: Riya Pitt on 10-16-2022 RBC (Bld) [#/Vol] 2.50 10*6/uL 3.90-5.60 [facility] WBC Auto (Bld) [#/Vol]Ordere d By: Riya Pitt on 10-16-2022 WBC (Bld) [#/Vol] 11.7 10*3/uL 4.1-10.5 [facility] Alanine aminotransferase [En zymatic activity/volume] in Serum or PlasmaOrdered By: Pedro Drake on 10-13-2022 ALT [Catalytic activity/Vol] 12 U/L 7-52 [facility] Albumin [Mass/volume] in Ser um or Plasma by Bromocresol green (BCG) dye binding methoOrdered By: Pedro Drake on 10-13-2022 Albumin BCG dye [Mass/Vol] 3.1 g/dL 3.5-5.7 [facility] Alkaline phosphatase [Enzyma tic activity/volume] in Serum or PlasmaOrdered By: Pedro Drake on 10-13-2022 ALP [Catalytic activity/Vol] 156 U/L 34-104 [facility] Anisocytosis LM Ql (Bld)Orde red By: Pedro Drake on 10-13-2022 Anisocytosis Ql (Bld) Slight [facility] Aspartate aminotransferase [ Enzymatic activity/volume] in Serum or PlasmaOrdered By: Pedro Drake on 10-13-2022 AST [Catalytic activity/Vol] 22 U/L 13-39 [facility] Bacteria identified Aer cx N om (Unsp spec)Ordered By: Pedro Drake on 10-13-2022 Aerobic culture Pseudomonas aerugino sa (MDRO) [facility] Aerobic culture Marichuy orthopsilosis [facility] Bacteria identified Cx Nom ( Bld)Ordered By: Pedro Drake on 10-13-2022 Bacterial blood culture Stenotrophomonas maltophilia [facility] Bacterial blood culture Chrysecolten slaughterum [facility] Bacterial blood cultureOrder ed By: Pedro Drake on 10-13-2022 Bacteria identified Cx Nom (Bld) NO GROWTH 5 DAYS [facility] Bacterial susceptibility hansen el TANNA (Isol)on 10-13-2022 Microorganism identified Cx Nom (Unsp spec) [id number] Abnormal [facility] Comment on above: Order Comment: Speci men Type: MICROBIAL ISOLATE Ordering Facility: [facility] Address: [address] [place] [id number] Result Comment: Marya obacterium nina Identification performed by client. Performed By: #### 5 0545-3, VZMIC #### [facility] CLIA [id number] [address] [place] [address] [place] Basophils Auto (Bld) [#/Vol] Ordered By: Pedro Drake on 10-13-2022 Basophils (Bld) [#/Vol] N/A [facility] Basophils/100 WBC Auto (Bld) Ordered By: Pedro Drake on 10-13-2022 Basophils/100 WBC (Bld) N/A [facility] Bilirubin.total [Mass/volume ] in Serum or PlasmaOrdered By: Pedro Drake on 10-13-2022 Bilirubin [Mass/Vol] 0.2 mg/dL 0.3-1.0 [facility] Calcium [Mass/volume] in Ser um or PlasmaOrdered By: Pedro Drake on 10-13-2022 Calcium [Mass/Vol] 7.8 mg/dL 8.6-10.3 [facility] Carbon dioxide, total [Moles /volume] in Serum or PlasmaOrdered By: Pedro Drake on 10-13-2022 CO2 [Moles/Vol] 25.9 mmol/L 21.0-31.0 [facility] Chloride [Moles/volume] in S leti or PlasmaOrdered By: Pedro Drake on 10-13-2022 Chloride [Moles/Vol] 106 mmol/L 98-107 [facility] Creatinine [Mass/volume] in Serum or PlasmaOrdered By: Pedro Drake on 10-13-2022 Creatinine [Mass/Vol] 3.30 mg/dL 0.70-1.30 [facility] Eosinophils Auto (Bld) [#/Vo l]Ordered By: Pedro Drake on 10-13-2022 Eosinophils (Bld) [#/Vol] N/A [facility] Eosinophils/100 WBC Auto (Bl d)Ordered By: Pedro Drake on 10-13-2022 Eosinophils/100 WBC (Bld) N/A [facility] Eosinophils/100 WBC Manual c nt (Bld)Ordered By: Pedro Drake on 10-13-2022 Eosinophils/100 WBC (Bld) 6 % 1-3 [facility] Erythrocyte distribution wid th Auto (RBC) [Ratio]Ordered By: Pedro Drake on 10-13-2022 Erythrocyte distribution width (RBC) [Ratio] 16.7 % 12.0-14.8 [facility] Globulin Calc (S) [Mass/Vol] Ordered By: Pedro Drake on 10-13-2022 Globulin (S) [Mass/Vol] 4.2 g/dL [facility] Glucose Glucometer (BldC) [M ass/Vol]Ordered By: Pedro Drake on 10-13-2022 Glucose [Mass/Vol] 137 mg/dL [facility] Glucose [Mass/volume] in Ser um or PlasmaOrdered By: Pedro Drake on 10-13-2022 Glucose [Mass/Vol] 46 mg/dL 70-100 [facility] Hematocrit Auto (Bld) [Volum e fraction]Ordered By: Pedro Drake on 10-13-2022 Hematocrit (Bld) [Volume fraction] 23.5 % 38.8-50.0 [facility] Hemoglobin [Mass/volume] in BloodOrdered By: Pedro Drake on 10-13-2022 Hemoglobin (Bld) [Mass/Vol] 7.6 g/dL 13.0-17.0 [facility] Hypochromia LM Ql (Bld)Order ed By: Pedro Drake on 10-13-2022 Hypochromia Ql (Bld) Moderate [facility] Leukocytes [#/volume] correc lakesha for nucleated erythrocytes in Blood by Automated counOrdered By: Pedro Drake on 10-13-2022 WBC corrected for nucl RBC Auto (Bld) [#/Vol] 13.8 10*3/uL 4.1-10.5 [facility] Lymphocytes Auto (Bld) [#/Vo l]Ordered By: Pedro Drake on 10-13-2022 Lymphocytes (Bld) [#/Vol] N/A [facility] Lymphocytes/100 WBC Auto (Bl d)Ordered By: Pedro Drake on 10-13-2022 Lymphocytes/100 WBC (Bld) N/A [facility] Lymphocytes/100 WBC Manual c nt (Bld)Ordered By: Pedro Drake on 10-13-2022 Lymphocytes/100 WBC (Bld) 25 % 18-42 [facility] MCH Auto (RBC) [Entitic mass ]Ordered By: Pedro Drake on 10-13-2022 MCH (RBC) [Entitic mass] 30.3 pg 27.5-35.2 [facility] MCHC Auto (RBC) [Mass/Vol]Or dered By: Pedro Drake on 10-13-2022 MCHC (RBC) [Mass/Vol] 32.4 g/dL 32.5-35.6 [facility] MCV Auto (RBC) [Entitic vol] Ordered By: Pedro Drake on 10-13-2022 MCV (RBC) [Entitic vol] 93.4 fL 83.5-101 [facility] MINIMUM INHIBITORY CONCENTRA TION (VIZION)on 10-13-2022 Amikacin [Susc] >32 Resistant Susceptible <=16 , Intermediate >16 , Resistant >32 [facility] Comment on above: Order Comment: Order ing Facility: [facility] Address: [address] [place] [address] Performed By: #### 5 0545-3, VZMIC #### [facility] CLIA [id number] [address] [place] [address] [place] Cefepime [Susc] <=2 Susceptible Susceptible <=8 , Intermediate >8 , Resistant >16 [facility] Comment on above: Order Comment: Order ing Facility: [facility] Address: [address] [place] [address] Performed By: #### 5 0545-3, VZMIC #### [facility] CLIA [id number] [address] [place] [address] [place] Ciprofloxacin [Susc] 0.50 Susceptible Suscept ible <=1 , Intermediate >1 , Resistant >2 [facility] Comment on above: Order Comment: Order ing Facility: [facility] Address: [address] [place] [address] Performed By: #### 5 0545-3, VZMIC #### [facility] CLIA [id number] [address] [place] [address] [place] Gentamicin [Susc] >8 Resistant Susceptibl e <=4 , Intermediate >4 , Resistant >8 [facility] Comment on above: Order Comment: Order ing Facility: [facility] Address: [address] [place] [address] Performed By: #### 5 0545-3, VZMIC #### [facility] CLIA [id number] [address] [place] [address] [place] Meropenem [Susc] >8 Resistant Susceptible <=4 , Intermediate >4 , Resistant >8 [facility] Comment on above: Order Comment: Order ing Facility: [facility] Address: [address] [place] [address] Performed By: #### 5 0545-3, VZMIC #### [facility] CLIA [id number] [address] [place] [address] [place] Piperacillin+Sulbactam TANNA [Susc] 32 Intermediate Susceptible <=16 , Intermediate >16 , Resistant >64 [facility] Comment on above: Order Comment: Order ing Facility: [facility] Address: [address] [place] [address] Performed By: #### 5 0545-3, VZMIC #### [facility] CLIA [id number] [address] [place] [address] [place] Tobramycin [Susc] >8 Resistant Susceptibl e <=4 , Intermediate >4 , Resistant >8 [facility] Comment on above: Order Comment: Order ing Facility: [facility] Address: [address] [place] [address] Performed By: #### 5 0545-3, VZMIC #### [facility] CLIA [id number] [address] [place] [address] [place] Trimethoprim+Sulfametho xazole [Susc] <=1 Susceptible Susceptible <=2 , Resistant >2 [facility] Comment on above: Order Comment: Order ing Facility: [facility] Address: [address] [place] [address] Performed By: #### 5 0545-3, VZMIC #### [facility] CLIA [id number] [address] [place] [address] [place] Monocyte distribution width [Entitic volume] in Blood by AutomatedOrdered By: Pedro Drake on 10-13-2022 Monocyte distribution width Auto (Bld) [Entitic vol] 21.56 % 0.00-20.00 [facility] Monocytes Auto (Bld) [#/Vol] Ordered By: Pedro Drake on 10-13-2022 Monocytes (Bld) [#/Vol] N/A [facility] Monocytes/100 WBC Auto (Bld) Ordered By: Pedro Drake on 10-13-2022 Monocytes/100 WBC (Bld) N/A [facility] Monocytes/100 WBC Manual cnt (Bld)Ordered By: Pedro Drake on 10-13-2022 Monocytes/100 WBC (Bld) 6 % 2-11 [facility] Neutrophils Auto (Bld) [#/Vo l]Ordered By: Pedro Drake on 10-13-2022 Neutrophils (Bld) [#/Vol] N/A [facility] Neutrophils/100 WBC Auto (Bl d)Ordered By: Pedro Drake on 10-13-2022 Neutrophils/100 WBC (Bld) N/A [facility] No Panel InformationOrdered By: Pedro Drake on 10-13-2022 19.085 mL/Min [facility] 26.32 [facility] Nucleated erythrocytes [Pres ence] in Blood by Automated countOrdered By: Pedro Drake on 10-13-2022 Nucleated RBC Auto Ql (Bld) N/A [facility] Platelet adequacy [Presence] in Blood by Light microscopyOrdered By: Perdo Drake on 10-13-2022 Platelets LM Ql (Bld) Normal Normal [facility] Platelet mean volume Auto (B ld) [Entitic vol]Ordered By: Pedro Drake on 10-13-2022 Platelet mean volume (Bld) [Entitic vol] 9.9 fL 6.6-10.1 [facility] Platelet morphology finding [Identifier] in BloodOrdered By: Pedro Drake on 10-13-2022 Platelet morphology finding Nom (Bld) N/A [facility] Platelets Auto (Bld) [#/Vol] Ordered By: Pedro Drake on 10-13-2022 Platelets (Bld) [#/Vol] 232 10*3/uL 150-450 [facility] Platelets Large [Presence] i n Blood by Light microscopyOrdered By: Pedro Drake on 10-13-2022 Platelets Large LM Ql (Bld) Slight [facility] Poikilocytosis [Presence] in Blood by Light microscopyOrdered By: Pedro Drake on 10-13-2022 Poikilocytosis LM Ql (Bld) Slight [facility] Polychromasia [Presence] in Blood by Light microscopyOrdered By: Pedro Drake on 10-13-2022 Polychromasia LM Ql (Bld) Moderate [facility] Potassium [Moles/volume] in Serum or PlasmaOrdered By: Pedro Drake on 10-13-2022 Potassium [Moles/Vol] 4.2 mmol/L 3.5-5.1 [facility] Protein [Mass/volume] in Ser um or PlasmaOrdered By: Pedro Drake on 10-13-2022 Protein [Mass/Vol] 7.3 g/dL 6.4-8.9 [facility] RBC Auto (Bld) [#/Vol]Ordere d By: Pedro Drake on 10-13-2022 RBC (Bld) [#/Vol] 2.52 10*6/uL 3.90-5.60 [facility] RBC morphologyOrdered By: Angela Drake on 10-13-2022 RBC morphology finding Nom (Bld) N/A [facility] Schistocytes [Presence] in B lood by Light microscopyOrdered By: Pedro Drake on 10-13-2022 Schistocytes LM Ql (Bld) Slight [facility] Segmented neutrophils/100 WB C Manual cnt (Bld)Ordered By: Pedro Drake on 10-13-2022 Segmented neutrophils/100 WBC (Bld) 64 % 50-70 [facility] Serum or plasma albumin/glob ulin mass ratioOrdered By: Pedro Drake on 10-13-2022 Albumin/Globulin [Mass ratio] 0.7 {ratio} [facility] Serum or plasma anion gap de terminationOrdered By: Pedro Drake on 10-13-2022 Anion gap [Moles/Vol] 11.3 mmol/L 6.0-15.0 [facility] Sodium [Moles/volume] in Ser um or PlasmaOrdered By: Pedro Drake on 10-13-2022 Sodium [Moles/Vol] 139 mmol/L 136-145 [facility] Target cellsOrdered By: Pedro Drake on 10-13-2022 Target cells LM Ql (Bld) Moderate [facility] Urea nitrogen [Mass/volume] in Serum or PlasmaOrdered By: Pedro Drake on 10-13-2022 Urea nitrogen [Mass/Vol] 45 mg/dL 7-25 [facility] WBC Auto (Bld) [#/Vol]Ordere d By: Pedro Drake on 10-13-2022 WBC (Bld) [#/Vol] 13.8 10*3/uL 4.1-10.5 [facility] Basophils Auto (Bld) [#/Vol] Ordered By: Riya Pitt on 10-11-2022 Basophils (Bld) [#/Vol] 0.1 10*3/uL 0.0-0.2 [facility] Basophils/100 WBC Auto (Bld) Ordered By: Riya Pitt on 10-11-2022 Basophils/100 WBC (Bld) 1.1 % . [facility] Eosinophils Auto (Bld) [#/Vo l]Ordered By: Riya Pitt on 10-11-2022 Eosinophils (Bld) [#/Vol] 0.5 10*3/uL 0.0-0.45 [facility] Eosinophils/100 WBC Auto (Bl d)Ordered By: Riya Pitt on 10-11-2022 Eosinophils/100 WBC (Bld) 4.3 % . [facility] Erythrocyte distribution wid th Auto (RBC) [Ratio]Ordered By: Riya Pitt on 10-11-2022 Erythrocyte distribution width (RBC) [Ratio] 16.7 % 12.0-14.8 [facility] Erythrocyte sedimentation ra te by Photometric methodOrdered By: Riya Pitt on 10-11-2022 ESR Photometric method (Bld) [Velocity] 100 mm/hr 0-19 [facility] Hematocrit Auto (Bld) [Volum e fraction]Ordered By: Riya Pitt on 10-11-2022 Hematocrit (Bld) [Volume fraction] 23.7 % 38.8-50.0 [facility] Hemoglobin [Mass/volume] in BloodOrdered By: Riya Pitt on 10-11-2022 Hemoglobin (Bld) [Mass/Vol] 7.6 g/dL 13.0-17.0 [facility] Leukocytes [#/volume] correc lakesha for nucleated erythrocytes in Blood by Automated counOrdered By: Riya Pitt on 10-11-2022 WBC corrected for nucl RBC Auto (Bld) [#/Vol] 11.3 10*3/uL 4.1-10.5 [facility] Lymphocytes Auto (Bld) [#/Vo l]Ordered By: Riya Pitt on 10-11-2022 Lymphocytes (Bld) [#/Vol] 4.6 10*3/uL 1.00-4.8 [facility] Lymphocytes/100 WBC Auto (Bl d)Ordered By: Riya Pitt on 10-11-2022 Lymphocytes/100 WBC (Bld) 41.1 % . [facility] MCH Auto (RBC) [Entitic mass ]Ordered By: Riya Pitt on 10-11-2022 MCH (RBC) [Entitic mass] 30.2 pg 27.5-35.2 [facility] MCHC Auto (RBC) [Mass/Vol]Or dered By: Riya Pitt on 10-11-2022 MCHC (RBC) [Mass/Vol] 32.2 g/dL 32.5-35.6 [facility] MCV Auto (RBC) [Entitic vol] Ordered By: Riya Pitt on 10-11-2022 MCV (RBC) [Entitic vol] 93.9 fL 83.5-101 [facility] Monocytes Auto (Bld) [#/Vol] Ordered By: Riya Pitt on 10-11-2022 Monocytes (Bld) [#/Vol] 0.5 10*3/uL 0.0-0.8 [facility] Monocytes/100 WBC Auto (Bld) Ordered By: Riya Pitt on 10-11-2022 Monocytes/100 WBC (Bld) 4.3 % . [facility] Neutrophils Auto (Bld) [#/Vo l]Ordered By: Riya Pitt on 10-11-2022 Neutrophils (Bld) [#/Vol] 5.6 10*3/uL 1.8-7.7 [facility] Neutrophils/100 WBC Auto (Bl d)Ordered By: Riya Pitt on 10-11-2022 Neutrophils/100 WBC (Bld) 49.2 % . [facility] Nucleated erythrocytes [Pres ence] in Blood by Automated countOrdered By: Riya Pitt on 10-11-2022 Nucleated RBC Auto Ql (Bld) 0.3 /100{WBC} 0-0.5 [facility] Platelet mean volume Auto (B ld) [Entitic vol]Ordered By: Riya Pitt on 10-11-2022 Platelet mean volume (Bld) [Entitic vol] 10.7 fL 6.6-10.1 [facility] Platelets Auto (Bld) [#/Vol] Ordered By: Riya Pitt on 10-11-2022 Platelets (Bld) [#/Vol] 203 10*3/uL 150-450 [facility] RBC Auto (Bld) [#/Vol]Ordere d By: Riya Pitt on 10-11-2022 RBC (Bld) [#/Vol] 2.52 10*6/uL 3.90-5.60 [facility] WBC Auto (Bld) [#/Vol]Ordere d By: Riya Pitt on 10-11-2022 WBC (Bld) [#/Vol] 11.3 10*3/uL 4.1-10.5 [facility] Creatinine [Mass/volume] in Serum or PlasmaOrdered By: Riya Pitt on 10-09-2022 Creatinine [Mass/Vol] 3.02 mg/dL 0.70-1.30 [facility] No Panel InformationOrdered By: Riya Pitt on 10-09-2022 21.228 mL/Min [facility] N/A [facility] Alanine aminotransferase [En zymatic activity/volume] in Serum or PlasmaOrdered By: Mervat Santiago on 10-03-2022 ALT [Catalytic activity/Vol] 26 U/L 7-52 [facility] Albumin [Mass/volume] in Ser um or Plasma by Bromocresol green (BCG) dye binding methoOrdered By: Mervat Santiago on 10-03-2022 Albumin BCG dye [Mass/Vol] 3.4 g/dL 3.5-5.7 [facility] Alkaline phosphatase [Enzyma tic activity/volume] in Serum or PlasmaOrdered By: Mervat Santiago on 10-03-2022 ALP [Catalytic activity/Vol] 199 U/L 34-104 [facility] Aspartate aminotransferase [ Enzymatic activity/volume] in Serum or PlasmaOrdered By: Mervat Santiago on 10-03-2022 AST [Catalytic activity/Vol] 41 U/L 13-39 [facility] Basophils Auto (Bld) [#/Vol] Ordered By: Mervat Santiago on 10-03-2022 Basophils (Bld) [#/Vol] 0.2 10*3/uL 0.0-0.2 [facility] Basophils/100 WBC Auto (Bld) Ordered By: Mervat Snyderc on 10-03-2022 Basophils/100 WBC (Bld) 1.8 % . [facility] Bilirubin.total [Mass/volume ] in Serum or PlasmaOrdered By: Mervat Snyderc on 10-03-2022 Bilirubin [Mass/Vol] 0.3 mg/dL 0.3-1.0 [facility] Calcium [Mass/volume] in Ser um or PlasmaOrdered By: Mervat Saulsic on 10-03-2022 Calcium [Mass/Vol] 7.8 mg/dL 8.6-10.3 [facility] Carbon dioxide, total [Moles /volume] in Serum or PlasmaOrdered By: Mervat Snyderc on 10-03-2022 CO2 [Moles/Vol] 20.8 mmol/L 21.0-31.0 [facility] Chloride [Moles/volume] in S leti or PlasmaOrdered By: Mervat Santiago on 10-03-2022 Chloride [Moles/Vol] 111 mmol/L 98-107 [facility] Creatinine [Mass/volume] in Serum or PlasmaOrdered By: Mervat Santiago on 10-03-2022 Creatinine [Mass/Vol] 3.51 mg/dL 0.70-1.30 [facility] Eosinophils Auto (Bld) [#/Vo l]Ordered By: Mervat Snyderc on 10-03-2022 Eosinophils (Bld) [#/Vol] 0.6 10*3/uL 0.0-0.45 [facility] Eosinophils/100 WBC Auto (Bl d)Ordered By: Mervat Spasic on 10-03-2022 Eosinophils/100 WBC (Bld) 4.9 % . [facility] Erythrocyte distribution wid th Auto (RBC) [Ratio]Ordered By: Mervat Santiago on 10-03-2022 Erythrocyte distribution width (RBC) [Ratio] 16.4 % 12.0-14.8 [facility] Globulin Calc (S) [Mass/Vol] Ordered By: Mervat Santiago on 10-03-2022 Globulin (S) [Mass/Vol] 4.1 g/dL [facility] Glucose [Mass/volume] in Ser um or PlasmaOrdered By: Mervat Santiago on 10-03-2022 Glucose [Mass/Vol] 129 mg/dL 70-100 [facility] Hematocrit Auto (Bld) [Volum e fraction]Ordered By: Mervat Santiago on 10-03-2022 Hematocrit (Bld) [Volume fraction] 26.1 % 38.8-50.0 [facility] Hemoglobin [Mass/volume] in BloodOrdered By: Mervat Santiago on 10-03-2022 Hemoglobin (Bld) [Mass/Vol] 8.3 g/dL 13.0-17.0 [facility] Leukocytes [#/volume] correc lakesha for nucleated erythrocytes in Blood by Automated counOrdered By: Mervat Santiago on 10-03-2022 WBC corrected for nucl RBC Auto (Bld) [#/Vol] 13.1 10*3/uL 4.1-10.5 [facility] Lymphocytes Auto (Bld) [#/Vo l]Ordered By: Mervat Santiago on 10-03-2022 Lymphocytes (Bld) [#/Vol] 4.1 10*3/uL 1.00-4.8 [facility] Lymphocytes/100 WBC Auto (Bl d)Ordered By: Mervat Santiago on 10-03-2022 Lymphocytes/100 WBC (Bld) 31.8 % . [facility] MCH Auto (RBC) [Entitic mass ]Ordered By: Mervat Santiago on 10-03-2022 MCH (RBC) [Entitic mass] 30.0 pg 27.5-35.2 [facility] MCHC Auto (RBC) [Mass/Vol]Or dered By: Mervat Santiago on 10-03-2022 MCHC (RBC) [Mass/Vol] 32.0 g/dL 32.5-35.6 [facility] MCV Auto (RBC) [Entitic vol] Ordered By: Mervat Santiago on 10-03-2022 MCV (RBC) [Entitic vol] 93.6 fL 83.5-101 [facility] Monocytes Auto (Bld) [#/Vol] Ordered By: Mervat Santiago on 10-03-2022 Monocytes (Bld) [#/Vol] 0.9 10*3/uL 0.0-0.8 [facility] Monocytes/100 WBC Auto (Bld) Ordered By: Mervat Santiago on 10-03-2022 Monocytes/100 WBC (Bld) 6.8 % . [facility] Natriuretic peptide B [Mass/ Vol]Ordered By: Mervat Santiago on 10-03-2022 Natriuretic peptide B (Bld) [Mass/Vol] 38.0 pg/mL 5-100 [facility] Neutrophils Auto (Bld) [#/Vo l]Ordered By: Mervat Santiago on 10-03-2022 Neutrophils (Bld) [#/Vol] 7.2 10*3/uL 1.8-7.7 [facility] Neutrophils/100 WBC Auto (Bl d)Ordered By: Mervat Santiago on 10-03-2022 Neutrophils/100 WBC (Bld) 54.7 % . [facility] No Panel InformationOrdered By: Mervat Santiago on 10-03-2022 17.723 mL/Min [facility] N/A [facility] Nucleated erythrocytes [Pres ence] in Blood by Automated countOrdered By: Mervat Santiago on 10-03-2022 Nucleated RBC Auto Ql (Bld) 0.1 /100{WBC} 0-0.5 [facility] Platelet mean volume Auto (B ld) [Entitic vol]Ordered By: Mervat Santiago on 10-03-2022 Platelet mean volume (Bld) [Entitic vol] 11.1 fL 6.6-10.1 [facility] Platelets Auto (Bld) [#/Vol] Ordered By: Mervat Santiago on 10-03-2022 Platelets (Bld) [#/Vol] 196 10*3/uL 150-450 [facility] Potassium [Moles/volume] in Serum or PlasmaOrdered By: Mervat Spasic on 10-03-2022 Potassium [Moles/Vol] 4.6 mmol/L 3.5-5.1 [facility] Prealbumin [Mass/volume] in Serum or PlasmaOrdered By: Mervat Spasic on 10-03-2022 Prealbumin [Mass/Vol] 20.3 mg/dL 17.0-34.0 [facility] [place] Protein [Mass/volume] in Ser um or PlasmaOrdered By: Mervat Spasic on 10-03-2022 Protein [Mass/Vol] 7.5 g/dL 6.4-8.9 [facility] RBC Auto (Bld) [#/Vol]Ordere d By: Mervat Spasic on 10-03-2022 RBC (Bld) [#/Vol] 2.78 10*6/uL 3.90-5.60 [facility] Serum or plasma albumin/glob ulin mass ratioOrdered By: Mervat Spasic on 10-03-2022 Albumin/Globulin [Mass ratio] 0.8 {ratio} [facility] Serum or plasma anion gap de terminationOrdered By: Mervat Spasic on 10-03-2022 Anion gap [Moles/Vol] 12.8 mmol/L 6.0-15.0 [facility] Sodium [Moles/volume] in Ser um or PlasmaOrdered By: Mervat Spasic on 10-03-2022 Sodium [Moles/Vol] 140 mmol/L 136-145 [facility] Urea nitrogen [Mass/volume] in Serum or PlasmaOrdered By: Mervat Spasic on 10-03-2022 Urea nitrogen [Mass/Vol] 48 mg/dL 7-25 [facility] WBC Auto (Bld) [#/Vol]Ordere d By: Mervat Spasic on 10-03-2022 WBC (Bld) [#/Vol] 13.1 10*3/uL 4.1-10.5 [facility] Acanthocytes [Presence] in B lood by Light microscopyOrdered By: Riya Pitt on 10-02-2022 Acanthocytes LM Ql (Bld) Slight [facility] Anisocytosis LM Ql (Bld)Orde red By: Riya Pitt on 10-02-2022 Anisocytosis Ql (Bld) Moderate [facility] [place] Basophils Auto (Bld) [#/Vol] Ordered By: Riya Pitt on 10-02-2022 Basophils (Bld) [#/Vol] N/A [facility] Basophils/100 WBC Auto (Bld) Ordered By: Riya Pitt on 10-02-2022 Basophils/100 WBC (Bld) N/A [facility] Prince cells [Presence] in Blo od by Light microscopyOrdered By: Riya Pitt on 10-02-2022 Prince cells LM Ql (Bld) [facility]light [facility] Creatinine [Mass/volume] in Serum or PlasmaOrdered By: Riya Pitt on 10-02-2022 Creatinine [Mass/Vol] 3.49 mg/dL 0.70-1.30 [facility] [place] Eosinophils Auto (Bld) [#/Vo l]Ordered By: Riya Pitt on 10-02-2022 Eosinophils (Bld) [#/Vol] N/A [facility] Eosinophils/100 WBC Auto (Bl d)Ordered By: Riya Pitt on 10-02-2022 Eosinophils/100 WBC (Bld) N/A [facility] Eosinophils/100 WBC Manual c nt (Bld)Ordered By: Riya Pitt on 10-02-2022 Eosinophils/100 WBC (Bld) 8 % 1-3 [facility] Erythrocyte distribution wid th Auto (RBC) [Ratio]Ordered By: Riya Pitt on 10-02-2022 Erythrocyte distribution width (RBC) [Ratio] 16.8 % 12.0-14.8 [facility] Erythrocyte sedimentation ra te by Photometric methodOrdered By: Riya Pitt on 10-02-2022 ESR Photometric method (Bld) [Velocity] 125 mm/hr 0-19 [facility] Giant platelets/100 leukocyt es [Ratio] in Blood by Manual countOrdered By: Riya Pitt on 10-02-2022 Giant platelets/100 WBC Manual cnt (Bld) [Ratio] 7 /100{WBC} [facility] Hematocrit Auto (Bld) [Volum e fraction]Ordered By: Riya Pitt on 10-02-2022 Hematocrit (Bld) [Volume fraction] 23.7 % 38.8-50.0 [facility] Hemoglobin [Mass/volume] in BloodOrdered By: Riya Pitt on 10-02-2022 Hemoglobin (Bld) [Mass/Vol] 7.9 g/dL 13.0-17.0 [facility] Hypochromia LM Ql (Bld)Order ed By: Riya Pitt on 10-02-2022 Hypochromia Ql (Bld) Marked [facility] Leukocytes [#/volume] correc lakesha for nucleated erythrocytes in Blood by Automated counOrdered By: Riya Pitt on 10-02-2022 WBC corrected for nucl RBC Auto (Bld) [#/Vol] 12.4 10*3/uL 4.1-10.5 [facility] Lymphocytes Auto (Bld) [#/Vo l]Ordered By: Riya Pitt on 10-02-2022 Lymphocytes (Bld) [#/Vol] N/A [facility] Lymphocytes/100 WBC Auto (Bl d)Ordered By: Riya Pitt on 10-02-2022 Lymphocytes/100 WBC (Bld) N/A [facility] Lymphocytes/100 WBC Manual c nt (Bld)Ordered By: Riya Pitt on 10-02-2022 Lymphocytes/100 WBC (Bld) 29 % 18-42 [facility] MCH Auto (RBC) [Entitic mass ]Ordered By: Riya Pitt on 10-02-2022 MCH (RBC) [Entitic mass] 32.2 pg 27.5-35.2 [facility] MCHC Auto (RBC) [Mass/Vol]Or dered By: Riya Pitt on 10-02-2022 MCHC (RBC) [Mass/Vol] 33.2 g/dL 32.5-35.6 [facility] [place] MCV Auto (RBC) [Entitic vol] Ordered By: Riya Pitt on 10-02-2022 MCV (RBC) [Entitic vol] 97.0 fL 83.5-101 [facility] Macrocytes LM Ql (Bld)Ordere d By: Riya Pitt on 10-02-2022 Macrocytes Ql (Bld) Slight [facility] Monocytes Auto (Bld) [#/Vol] Ordered By: Riya Pitt on 10-02-2022 Monocytes (Bld) [#/Vol] N/A [facility] Monocytes/100 WBC Auto (Bld) Ordered By: Riya Pitt on 10-02-2022 Monocytes/100 WBC (Bld) N/A [facility] Monocytes/100 WBC Manual cnt (Bld)Ordered By: Riya Pitt on 10-02-2022 Monocytes/100 WBC (Bld) 7 % 2-11 [facility] Neutrophils Auto (Bld) [#/Vo l]Ordered By: Riya Pitt on 10-02-2022 Neutrophils (Bld) [#/Vol] N/A [facility] Neutrophils/100 WBC Auto (Bl d)Ordered By: Riya Pitt on 10-02-2022 Neutrophils/100 WBC (Bld) N/A [facility] No Panel InformationOrdered By: Riya Pitt on 10-02-2022 17.845 mL/Min [facility] N/A [facility] Nucleated RBC/100 WBC Manual cnt (Bld) [Ratio]Ordered By: Riya Pitt on 10-02-2022 Nucleated RBC/100 WBC (Bld) [Ratio] 1 /100{WBC} 0-0 [facility] Nucleated erythrocytes [Pres ence] in Blood by Automated countOrdered By: Riya Pitt on 10-02-2022 Nucleated RBC Auto Ql (Bld) N/A [facility] Platelet adequacy [Presence] in Blood by Light microscopyOrdered By: Riya Pitt on 10-02-2022 Platelets LM Ql (Bld) Normal Normal [facility] [place] Platelet mean volume Auto (B ld) [Entitic vol]Ordered By: Riya Pitt on 10-02-2022 Platelet mean volume (Bld) [Entitic vol] 10.4 fL 6.6-10.1 [facility] Platelet morphology finding [Identifier] in BloodOrdered By: Riya Pitt on 10-02-2022 Platelet morphology finding Nom (Bld) N/A [facility] Platelets Auto (Bld) [#/Vol] Ordered By: Riya Pitt on 10-02-2022 Platelets (Bld) [#/Vol] 173 10*3/uL 150-450 [facility] Poikilocytosis [Presence] in Blood by Light microscopyOrdered By: Riya Pitt on 10-02-2022 Poikilocytosis LM Ql (Bld) Moderate [facility] Polychromasia [Presence] in Blood by Light microscopyOrdered By: Riya Pitt on 10-02-2022 Polychromasia LM Ql (Bld) Marked [facility] RBC Auto (Bld) [#/Vol]Ordere d By: Riya Pitt on 10-02-2022 RBC (Bld) [#/Vol] 2.44 10*6/uL 3.90-5.60 [facility] RBC morphologyOrdered By: Angelita Pitt on 10-02-2022 RBC morphology finding Nom (Bld) N/A [facility] Segmented neutrophils/100 WB C Manual cnt (Bld)Ordered By: Riya Pitt on 10-02-2022 Segmented neutrophils/100 WBC (Bld) 57 % 50-70 [facility] Target cellsOrdered By: Bhavin bojorquezcorrine Pitt on 10-02-2022 Target cells LM Ql (Bld) Moderate [facility] WBC Auto (Bld) [#/Vol]Ordere d By: Riya Pitt on 10-02-2022 WBC (Bld) [#/Vol] 12.4 10*3/uL 4.1-10.5 [facility] CNPMckenzie 09-23-2022 TRISTONN Telephone (IRRFV) SIMON LOTT ([id number]) 1950 M Date Time Provider Department 09/23/22 BRI FAIR During your visit today, we recorded the following information about you: Bri Fair 09/23/2022 9:[address] Corbett took neph tube out in office. Patient no longer has any tubes. 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 Reason for Visit: tube [...] Encounter Status:Closed by BRI FAIR on 09/23/22 [facility] Acanthocytes [Presence] in B lood by Light microscopyOrdered By: Kevin Steinberg on 09-12-2022 Acanthocytes LM Ql (Bld) [facility] Albumin [Mass/volume] in Ser um or Plasma by Bromocresol green (BCG) dye binding methoOrdered By: Kevin Steinberg on 09-12-2022 Albumin BCG dye [Mass/Vol] 3.0 g/dL 3.5-5.7 [facility] Anisocytosis LM Ql (Bld)Orde red By: Kevin Maryan on 09-12-2022 Anisocytosis Ql (Bld) Moderate [facility] [place] Basophils Auto (Bld) [#/Vol] Ordered By: Kevin Maryan on 09-12-2022 Basophils (Bld) [#/Vol] N/A [facility] Basophils/100 WBC Auto (Bld) Ordered By: Kevin Maryan on 09-12-2022 Basophils/100 WBC (Bld) 2.0 % . [facility] Prince cells [Presence] in Blo od by Light microscopyOrdered By: Kevin Maryan on 09-12-2022 Prince cells LM Ql (Bld) [facility]light [facility] Calcium [Mass/volume] in Ser um or PlasmaOrdered By: Kevin Maryan on 09-12-2022 Calcium [Mass/Vol] 8.3 mg/dL 8.6-10.3 [facility] Carbon dioxide, total [Moles /volume] in Serum or PlasmaOrdered By: Kevin Maryan on 09-12-2022 CO2 [Moles/Vol] 19.2 mmol/L 21.0-31.0 [facility] Chloride [Moles/volume] in S leti or PlasmaOrdered By: Kevin Maryan on 09-12-2022 Chloride [Moles/Vol] 112 mmol/L 98-107 [facility] Creatinine [Mass/volume] in Serum or PlasmaOrdered By: Kevin Maryan on 09-12-2022 Creatinine [Mass/Vol] 4.89 mg/dL 0.70-1.30 [facility] [place] Eosinophils Auto (Bld) [#/Vo l]Ordered By: Kevin Maryan on 09-12-2022 Eosinophils (Bld) [#/Vol] N/A [facility] Eosinophils/100 WBC Auto (Bl d)Ordered By: Kevin Maryan on 09-12-2022 Eosinophils/100 WBC (Bld) 3.0 % . [facility] Erythrocyte distribution wid th Auto (RBC) [Ratio]Ordered By: Kevin Steinberg on 09-12-2022 Erythrocyte distribution width (RBC) [Ratio] 16.4 % 12.0-14.8 [facility] Glucose Glucometer (BldC) [M ass/Vol]Ordered By: Kevin Steinberg on 09-12-2022 Glucose [Mass/Vol] 99 mg/dL [facility] Glucose [Mass/volume] in Ser um or PlasmaOrdered By: Kevin Steinberg on 09-12-2022 Glucose [Mass/Vol] 75 mg/dL 70-100 [facility] Hematocrit Auto (Bld) [Volum e fraction]Ordered By: Kevin Steinberg on 09-12-2022 Hematocrit (Bld) [Volume fraction] 26.1 % 38.8-50.0 [facility] Hemoglobin [Mass/volume] in BloodOrdered By: Kevin Steinberg on 09-12-2022 Hemoglobin (Bld) [Mass/Vol] 8.5 g/dL 13.0-17.0 [facility] Hypochromia LM Ql (Bld)Order ed By: Kevin Steinberg on 09-12-2022 Hypochromia Ql (Bld) Moderate [facility] Leukocytes [#/volume] correc lakesha for nucleated erythrocytes in Blood by Automated counOrdered By: Kevin Steinberg on 09-12-2022 WBC corrected for nucl RBC Auto (Bld) [#/Vol] 13.6 10*3/uL 4.1-10.5 [facility] Lymphocytes Auto (Bld) [#/Vo l]Ordered By: Kevin Steinberg on 09-12-2022 Lymphocytes (Bld) [#/Vol] N/A [facility] Lymphocytes/100 WBC Auto (Bl d)Ordered By: KevinMarquis on 09-12-2022 Lymphocytes/100 WBC (Bld) 36.0 % . [facility] MCH Auto (RBC) [Entitic mass ]Ordered By: Kevin Steinberg on 09-12-2022 MCH (RBC) [Entitic mass] 30.4 pg 27.5-35.2 [facility] MCHC Auto (RBC) [Mass/Vol]Or dered By: Kevin Steinberg on 09-12-2022 MCHC (RBC) [Mass/Vol] 32.7 g/dL 32.5-35.6 [facility] [place] MCV Auto (RBC) [Entitic vol] Ordered By: Kevin Brunsonam on 09-12-2022 MCV (RBC) [Entitic vol] 92.9 fL 83.5-101 [facility] Macrocytes LM Ql (Bld)Ordere d By: Kevin Brunsonam on 09-12-2022 Macrocytes Ql (Bld) Slight [facility] Monocytes Auto (Bld) [#/Vol] Ordered By: Kevin Brunsonam on 09-12-2022 Monocytes (Bld) [#/Vol] N/A [facility] Monocytes/100 WBC Auto (Bld) Ordered By: Kevin Steinberg on 09-12-2022 Monocytes/100 WBC (Bld) 1.0 % . [facility] Neutrophils Auto (Bld) [#/Vo l]Ordered By: Kevin Brunsonam on 09-12-2022 Neutrophils (Bld) [#/Vol] N/A [facility] Neutrophils/100 WBC Auto (Bl d)Ordered By: Kevin Brunsonam on 09-12-2022 Neutrophils/100 WBC (Bld) 59.0 % . [facility] No Panel InformationOrdered By: Kevin Steinberg on 09-12-2022 11.906 mL/Min [facility] 18.07 [facility] Nucleated erythrocytes [Pres ence] in Blood by Automated countOrdered By: Kevin Steinberg on 09-12-2022 Nucleated RBC Auto Ql (Bld) 0.0 /100{WBC} 0-0.5 [facility] Phosphate [Mass/volume] in S leti or PlasmaOrdered By: Kevin Steinberg on 09-12-2022 Phosphate [Mass/Vol] 3.5 mg/dL 3.7-7.2 [facility] Platelet adequacy [Presence] in Blood by Light microscopyOrdered By: Kevin Steinberg on 09-12-2022 Platelets LM Ql (Bld) Normal Normal [facility] [place] Platelet mean volume Auto (B ld) [Entitic vol]Ordered By: Kevin Maryan on 09-12-2022 Platelet mean volume (Bld) [Entitic vol] 10.0 fL 6.6-10.1 [facility] Platelet morphology finding [Identifier] in BloodOrdered By: Kevin Maryan on 09-12-2022 Platelet morphology finding Nom (Bld) Normal Normal [facility] Platelets Auto (Bld) [#/Vol] Ordered By: Kevin Maryan on 09-12-2022 Platelets (Bld) [#/Vol] 168 10*3/uL 150-450 [facility] Poikilocytosis [Presence] in Blood by Light microscopyOrdered By: KevinBrisenoam on 09-12-2022 Poikilocytosis LM Ql (Bld) Moderate [facility] Polychromasia [Presence] in Blood by Light microscopyOrdered By: Kevin Maryan on 09-12-2022 Polychromasia LM Ql (Bld) [facility] Potassium [Moles/volume] in Serum or PlasmaOrdered By: KevinBrisenoam on 09-12-2022 Potassium [Moles/Vol] 4.9 mmol/L 3.5-5.1 [facility] [place] RBC Auto (Bld) [#/Vol]Ordere d By: Kevin Maryan on 09-12-2022 RBC (Bld) [#/Vol] 2.81 10*6/uL 3.90-5.60 [facility] RBC morphologyOrdered By: An vasquez Steinberg on 09-12-2022 RBC morphology finding Nom (Bld) N/A [facility] Serum or plasma anion gap de terminationOrdered By: Kevin Brunsonam on 09-12-2022 Anion gap [Moles/Vol] 10.7 mmol/L 6.0-15.0 [facility] Sodium [Moles/volume] in Ser um or PlasmaOrdered By: KevinBrisenoam on 09-12-2022 Sodium [Moles/Vol] 137 mmol/L 136-145 [facility] Target cellsOrdered By: Ramiro Steinberg on 09-12-2022 Target cells LM Ql (Bld) Slight [facility] Urea nitrogen [Mass/volume] in Serum or PlasmaOrdered By: Kevin Maryan on 09-12-2022 Urea nitrogen [Mass/Vol] 43 mg/dL 7-25 [facility] Vancomycin [Mass/volume] in Serum or PlasmaOrdered By: Kevin Maryan on 09-12-2022 Vancomycin [Mass/Vol] 14.0 ug/mL 5.0-20.0 [facility] [place] WBC Auto (Bld) [#/Vol]Ordere d By: Kevin Maryan on 09-12-2022 WBC (Bld) [#/Vol] 13.6 10*3/uL 4.1-10.5 [facility] Activated partial thrombopla stin time (aPTT) in platelet poor plasma by coagulation aOrdered By: Serafin Pearson on 09-10-2022 aPTT Coag (PPP) [Time] 30.9 s 25.1-36.5 [facility] Automated erythrocytes count in urine sediment (number/area)Ordered By: Serafin Pearson on 09-10-2022 RBC Auto (Urine sed) [#/Area] 1-2 [HPF] 0-4 [facility] Automated leukocytes count i n urine sediment (number/area)Ordered By: Serafin Pearson on 09-10-2022 WBC Auto (Urine sed) [#/Area] None seen [HPF] 0-4 [facility] Bacteria identified Aer cx N om (Unsp spec)Ordered By: Serafin Pearson on 09-10-2022 Aerobic culture Proteus mirabilis [facility] Aerobic culture Providencia stuartii (MDRO) [facility] Aerobic culture Enterococcus faecali s (VRE) [facility] Aerobic culture Pseudomonas aeruginosa [facility] Bacterial blood cultureOrder ed By: Serafin Pearson on 09-10-2022 Bacteria identified Cx Nom (Bld) NO GROWTH 5 DAYS [facility] Basophils Auto (Bld) [#/Vol] Ordered By: Serafin Pearson on 09-10-2022 Basophils (Bld) [#/Vol] 0.0 10*3/uL 0.0-0.2 [facility] Basophils/100 WBC Auto (Bld) Ordered By: Serafin Pearson on 09-10-2022 Basophils/100 WBC (Bld) 0.4 % . [facility] Bilirubin Test strip Ql (U)O rdered By: Serafin Pearson on 09-10-2022 Bilirubin Ql (U) Negative Negative [facility] Bilirubin.total [Mass/volume ] in Serum or PlasmaOrdered By: Serafin Pearson on 09-10-2022 Bilirubin [Mass/Vol] 0.3 mg/dL 0.3-1.0 [facility] C reactive protein [Mass/vol ume] in Serum or PlasmaOrdered By: Serafin Pearson on 09-10-2022 CRP [Mass/Vol] 0.8 mg/dL 0.0-0.5 [facility] Calcium [Mass/volume] in Ser um or PlasmaOrdered By: Serafin Pearson on 09-10-2022 Calcium [Mass/Vol] 8.5 mg/dL 8.6-10.3 [facility] Carbon dioxide, total [Moles /volume] in Serum or PlasmaOrdered By: Serafin Pearson on 09-10-2022 CO2 [Moles/Vol] 19.7 mmol/L 21.0-31.0 [facility] Chloride [Moles/volume] in S leti or PlasmaOrdered By: Serafin Pearson on 09-10-2022 Chloride [Moles/Vol] 107 mmol/L 98-107 [facility] Color Auto (U)Ordered By: Kenton Pearson on 09-10-2022 Color (U) Yellow Yellow [facility] Creatinine [Mass/volume] in Serum or PlasmaOrdered By: Serafin Pearson on 09-10-2022 Creatinine [Mass/Vol] 4.41 mg/dL 0.70-1.30 [facility] [place] Eosinophils Auto (Bld) [#/Vo l]Ordered By: Serafin Pearson on 09-10-2022 Eosinophils (Bld) [#/Vol] 0.4 10*3/uL 0.0-0.45 [facility] Eosinophils/100 WBC Auto (Bl d)Ordered By: Serafin Pearson on 09-10-2022 Eosinophils/100 WBC (Bld) 3.5 % . [facility] Erythrocyte distribution wid th Auto (RBC) [Ratio]Ordered By: Serafin Pearson on 09-10-2022 Erythrocyte distribution width (RBC) [Ratio] 16.3 % 12.0-14.8 [facility] Erythrocyte sedimentation ra te by Photometric methodOrdered By: Serafin Pearson on 09-10-2022 ESR Photometric method (Bld) [Velocity] 122 mm/hr 0-19 [facility] Glucose [Mass/volume] in Ser um or PlasmaOrdered By: Serafin Pearson on 09-10-2022 Glucose [Mass/Vol] 130 mg/dL 70-100 [facility] Hematocrit Auto (Bld) [Volum e fraction]Ordered By: Serafin Pearson on 09-10-2022 Hematocrit (Bld) [Volume fraction] 29.9 % 38.8-50.0 [facility] Hemoglobin [Mass/volume] in BloodOrdered By: Serafin Peasron on 09-10-2022 Hemoglobin (Bld) [Mass/Vol] 9.5 g/dL 13.0-17.0 [facility] Ketones Auto test strip (U) [Mass/Vol]Ordered By: Serafin Pearson on 09-10-2022 Ketones (U) [Mass/Vol] Negative Negative [facility] Lactate [Moles/volume] in Se rum or PlasmaOrdered By: Serafin Pearson on 09-10-2022 Lactate [Moles/Vol] 1.3 mmol/L 0.5-2.2 [facility] Leukocytes [#/volume] correc lakesha for nucleated erythrocytes in Blood by Automated counOrdered By: Serafin Pearson on 09-10-2022 WBC corrected for nucl RBC Auto (Bld) [#/Vol] 12.2 10*3/uL 4.1-10.5 [facility] Lymphocytes Auto (Bld) [#/Vo l]Ordered By: Serafin Pearson on 09-10-2022 Lymphocytes (Bld) [#/Vol] 5.1 10*3/uL 1.00-4.8 [facility] Lymphocytes/100 WBC Auto (Bl d)Ordered By: Serafin Pearson on 09-10-2022 Lymphocytes/100 WBC (Bld) 42.1 % . [facility] MCH Auto (RBC) [Entitic mass ]Ordered By: Serafin Pearson on 09-10-2022 MCH (RBC) [Entitic mass] 30.0 pg 27.5-35.2 [facility] MCHC Auto (RBC) [Mass/Vol]Or dered By: Serafin Pearson on 09-10-2022 MCHC (RBC) [Mass/Vol] 31.8 g/dL 32.5-35.6 [facility] MCV Auto (RBC) [Entitic vol] Ordered By: Serafin Pearson on 09-10-2022 MCV (RBC) [Entitic vol] 94.4 fL 83.5-101 [facility] Monocyte distribution width [Entitic volume] in Blood by AutomatedOrdered By: Serafin Pearson on 09-10-2022 Monocyte distribution width Auto (Bld) [Entitic vol] 19.06 % 0.00-20.00 [facility] Monocytes Auto (Bld) [#/Vol] Ordered By: Serafin Pearson on 09-10-2022 Monocytes (Bld) [#/Vol] 1.0 10*3/uL 0.0-0.8 [facility] Monocytes/100 WBC Auto (Bld) Ordered By: Serafin Pearson on 09-10-2022 Monocytes/100 WBC (Bld) 8.6 % . [facility] Neutrophils Auto (Bld) [#/Vo l]Ordered By: Serafin Pearson on 09-10-2022 Neutrophils (Bld) [#/Vol] 5.5 10*3/uL 1.8-7.7 [facility] Neutrophils/100 WBC Auto (Bl d)Ordered By: Serafin Pearson on 09-10-2022 Neutrophils/100 WBC (Bld) 45.4 % . [facility] Nitrite Test strip Ql (U)Ord ered By: Serafin Pearson on 09-10-2022 Nitrite Ql (U) Negative Negative [facility] No Panel InformationOrdered By: Kevin Steinberg on 09-10-2022 Glu2: cleaned meter [facility] No Panel InformationOrdered By: Serafin Pearson on 09-10-2022 None seen [LPF] 0-8 [facility] 12.6 s 9.0-12.9 [facility] 13.476 mL/Min [facility] 19.50 [facility] Nucleated erythrocytes [Pres ence] in Blood by Automated countOrdered By: Serafin Pearson on 09-10-2022 Nucleated RBC Auto Ql (Bld) 0.1 /100{WBC} 0-0.5 [facility] Platelet mean volume Auto (B ld) [Entitic vol]Ordered By: Serafin Pearson on 09-10-2022 Platelet mean volume (Bld) [Entitic vol] 10.3 fL 6.6-10.1 [facility] Platelet poor plasma interna tional normalized ratio (INR) by coagulation assay (relatOrdered By: Serafin Pearson on 09-10-2022 INR Coag (PPP) [Relative time] 1.1 {INR} [facility] Platelets Auto (Bld) [#/Vol] Ordered By: Serafin Pearson on 09-10-2022 Platelets (Bld) [#/Vol] 214 10*3/uL 150-450 [facility] Potassium [Moles/volume] in Serum or PlasmaOrdered By: Serafin Pearson on 09-10-2022 Potassium [Moles/Vol] 5.2 mmol/L 3.5-5.1 [facility] Protein Auto test strip (U) [Mass/Vol]Ordered By: Serafin Pearson on 09-10-2022 Protein (U) [Mass/Vol] 300 mg/dL Negative [facility] RBC Auto (Bld) [#/Vol]Ordere d By: Serafin Pearson on 09-10-2022 RBC (Bld) [#/Vol] 3.17 10*6/uL 3.90-5.60 [facility] Serum or plasma anion gap de terminationOrdered By: Serafin Pearson on 09-10-2022 Anion gap [Moles/Vol] 12.5 mmol/L 6.0-15.0 [facility] Sodium [Moles/volume] in Ser um or PlasmaOrdered By: Serafin Pearson on 09-10-2022 Sodium [Moles/Vol] 134 mmol/L 136-145 [facility] Specific gravity Auto test s trip (U) [Rel density]Ordered By: Serafin Pearson on 09-10-2022 Specific gravity (U) [Rel density] 1.012 1.001-1.030 [facility] Squamous epithelial cells de tection in urine sediment by light microscopyOrdered By: Serafin Pearson on 09-10-2022 Epithelial cells.squamous LM Ql (Urine sed) None seen [HPF] 0-2 [facility] Urea nitrogen [Mass/volume] in Serum or PlasmaOrdered By: Serafin Pearson on 09-10-2022 Urea nitrogen [Mass/Vol] 41 mg/dL 7-25 [facility] Urine bacteria detection by automated methodOrdered By: Serafin Pearson on 09-10-2022 Bacteria Auto Ql (U) None seen None Seen [facility] Urine clarity by refractomet ry automatedOrdered By: Serafin Pearson on 09-10-2022 Clarity Refractometry automated (U) Clear Clear [facility] Urine glucose measurement by automated test strip (mass/volume)Ordered By: Serafin Pearson on 09-10-2022 Glucose Auto test strip (U) [Mass/Vol] Normal mg/dL Normal [facility] Urine hemoglobin detection b y automated test stripOrdered By: Serafin Pearson on 09-10-2022 Hemoglobin Auto test strip Ql (U) Trace Negative [facility] Urine leukocyte esterase det ection by automated test stripOrdered By: Serafin Pearson on 09-10-2022 Leukocyte esterase Auto test strip Ql (U) Negative Negative [facility] Urobilinogen Auto test strip (U) [Mass/Vol]Ordered By: Serafin Pearson on 09-10-2022 Urobilinogen (U) [Mass/Vol] Normal mg/dL Normal [facility] WBC Auto (Bld) [#/Vol]Ordere d By: Serafin Pearson on 09-10-2022 WBC (Bld) [#/Vol] 12.2 10*3/uL 4.1-10.5 [facility] pH Auto test strip (U)Ordere d By: Serafin Pearson on 09-10-2022 pH (U) 6.0 [pH] 5.0-9.0 [facility] Alanine aminotransferase [En zymatic activity/volume] in Serum or PlasmaOrdered By: Julian Jones on 08-31-2022 ALT [Catalytic activity/Vol] 7 U/L 7-52 [facility] Albumin [Mass/volume] in Ser um or Plasma by Bromocresol green (BCG) dye binding methoOrdered By: Oblauradamela Gilesomar on 08-31-2022 Albumin BCG dye [Mass/Vol] 2.6 g/dL 3.5-5.7 [facility] Alkaline phosphatase [Enzyma tic activity/volume] in Serum or PlasmaOrdered By: Oblauradamela Gilesomar on 08-31-2022 ALP [Catalytic activity/Vol] 93 U/L 34-104 [facility] Aspartate aminotransferase [ Enzymatic activity/volume] in Serum or PlasmaOrdered By: Oblauradamela Gilesomar on 08-31-2022 AST [Catalytic activity/Vol] 13 U/L 13-39 [facility] Basophils Auto (Bld) [#/Vol] Ordered By: Isamar Mar on 08-31-2022 Basophils (Bld) [#/Vol] 0.1 10*3/uL 0.0-0.2 [facility] Basophils/100 WBC Auto (Bld) Ordered By: Isamar Mar on 08-31-2022 Basophils/100 WBC (Bld) 0.7 % . [facility] Bilirubin.total [Mass/volume ] in Serum or PlasmaOrdered By: Julian Gilesomar on 08-31-2022 Bilirubin [Mass/Vol] 0.3 mg/dL 0.3-1.0 [facility] Calcium [Mass/volume] in Ser um or PlasmaOrdered By: Obashley Gilesomar on 08-31-2022 Calcium [Mass/Vol] 7.4 mg/dL 8.6-10.3 [facility] Carbon dioxide, total [Moles /volume] in Serum or PlasmaOrdered By: Oblauradamela Gilesomar on 08-31-2022 CO2 [Moles/Vol] 21.0 mmol/L 21.0-31.0 [facility] Chloride [Moles/volume] in S leti or PlasmaOrdered By: Julian Gilesomar on 08-31-2022 Chloride [Moles/Vol] 111 mmol/L 98-107 [facility] Complete Blood Count Auto Di ffon 08-31-2022 Basophils (Bld) [#/Vol] 0.1 10*3/uL Normal 0.0-0.2 [facility] Comment on above: Result Comment: PERF ORMED BY:[address] [place], [place] [id number] MEDICAL DIRECTORCHRISTO PINO M.D. Performed By: #### C BC, FE and TIBC, CMP, [id number], OKSANA ####[address] Basophils/100 WBC (Bld) 0.7 % Normal . [facility] Comment on above: Performed By: #### C BC, FE and TIBC, CMP, [id number], OKSANA ####[address] Eosinophils (Bld) [#/Vol] 0.4 10*3/uL Normal 0.0-0.45 [facility] Comment on above: Performed By: #### C BC, FE and TIBC, CMP, [id number], OKSA[place] ####[address] Eosinophils/100 WBC (Bld) 3.5 % Normal . [facility] Comment on above: Performed By: #### C BC, FE and TIBC, CMP, [id number], OKSANA ####[address] Erythrocyte distribution width (RBC) [Ratio] 16.8 % High 12.0-14.8 [facility] Comment on above: Performed By: #### C BC, FE and TIBC, CMP, [id number], OKSANA ####[address] Hematocrit (Bld) [Volume fraction] 27.1 % Low 38.8-50.0 [facility] Comment on above: Performed By: #### C BC, FE and TIBC, CMP, [id number], OKSANA ####[address] Hemoglobin (Bld) [Mass/Vol] 8.7 g/dL Low 13.0-17.0 [facility] Comment on above: Performed By: #### C BC, FE and TIBC, CMP, [id number], OKSANA ####[address] Lymphocytes (Bld) [#/Vol] 3.9 10*3/uL Normal 1.00-4.8 [facility] Comment on above: Performed By: #### C BC, FE and TIBC, CMP, [id number], OKSANA ####[address] Lymphocytes/100 WBC (Bld) 32.8 % Normal . [facility] Comment on above: Performed By: #### C BC, FE and TIBC, CMP, [id number], OKSANA ####[address] MCH (RBC) [Entitic mass] 29.7 pg Normal 27.5-35.2 [facility] Comment on above: Performed By: #### C BC, FE and TIBC, CMP, [id number], OKSANA ####[address] MCV (RBC) [Entitic vol] 92.1 fL Normal 83.5-101 [facility] Comment on above: Performed By: #### C BC, FE and TIBC, CMP, [id number], OKSANA ####[address] Mean Corpuscular HGB Conc 32.2 g/dL Low 32.5-35.6 [facility] Comment on above: Performed By: #### C BC, FE and TIBC, CMP, [id number], OKSANA ####[address] Monocytes (Bld) [#/Vol] 1.0 10*3/uL High 0.0-0.8 [facility] Comment on above: Performed By: #### C BC, FE and TIBC, CMP, [id number], OKSANA ####[address] Monocytes/100 WBC (Bld) 8.4 % Normal . [facility] Comment on above: Performed By: #### C BC, FE and TIBC, CMP, [id number], OKSANA ####[address] Neutrophils (Bld) [#/Vol] 6.5 10*3/uL Normal 1.8-7.7 [facility] Comment on above: Performed By: #### C BC, FE and TIBC, CMP, [id number], OKSANA ####[address] Neutrophils/100 WBC (Bld) 54.6 % Normal . [facility] Comment on above: Performed By: #### C BC, FE and TIBC, CMP, [id number], OKSANA ####[address] NRBC% 0.1 /100{WBC} Normal 0-0.5 [facility] Comment on above: Performed By: #### C BC, FE and TIBC, CMP, [id number], OKSANA ####[address] Platelet mean volume (Bld) [Entitic vol] 9.4 fL Normal 6.6-10.1 [facility] Comment on above: Performed By: #### C BC, FE and TIBC, CMP, [id number], OK[place] ####[address] Platelets (Bld) [#/Vol] 244 10*3/uL Normal 150-450 [facility] Comment on above: Performed By: #### C BC, FE and TIBC, CMP, [id number], OKSANA ####[place] [id number] [place] RBC (Bld) [#/Vol] 2.94 10*6/uL Low 3.90-5.60 [facility] Comment on above: Performed By: #### C BC, FE and TIBC, CMP, [id number], OKSANA ####[address] WBC (Bld) [#/Vol] 11.9 10*3/uL High 4.1-10.5 [facility] Comment on above: Performed By: #### C BC, FE and TIBC, CMP, [id number], OK[place] ####[address] Comprehensive Metabolic Pane fidel 08-31-2022 Albumin [Mass/Vol] 2.6 g/dL Low 3.5-5.7 [facility] Comment on above: Performed By: #### C BC, FE and TIBC, CMP, [id number], OKSANA ####[address] Albumin/Globulin [Mass ratio] 0.5 {ratio} Normal [facility] Comment on above: Performed By: #### C BC, FE and TIBC, CMP, [id number], OKSANA ####[address] ALP [Catalytic activity/Vol] 93 U/L Normal 34-104 [facility] Comment on above: Performed By: #### C BC, FE and TIBC, CMP, [id number], OKSANA ####[address] ALT [Catalytic activity/Vol] 7 U/L Normal 7-52 [facility] Comment on above: Performed By: #### C BC, FE and TIBC, CMP, [id number], OKSANA ####[place] [id number] [facility] Anion gap [Moles/Vol] 12.5 mmol/L Normal 6.0-15.0 [facility] Comment on above: Performed By: #### C BC, FE and TIBC, CMP, [id number], [place] ####[address] AST [Catalytic activity/Vol] 13 U/L Normal 13-39 [facility] Comment on above: Performed By: #### C BC, FE and TIBC, CMP, [id number], OKSANA ####[place] [id number] [facility] Bilirubin [Mass/Vol] 0.3 mg/dL Normal 0.3-1.0 [facility] Comment on above: Performed By: #### C BC, FE and TIBC, CMP, [id number], OKSANA ####[address] Calcium [Mass/Vol] 7.4 mg/dL Low 8.6-10.3 [facility] Comment on above: Performed By: #### C BC, FE and TIBC, CMP, [id number], OKSANA ####[place] [id number] [facility] Chloride [Moles/Vol] 111 mmol/L High 98-107 [facility] Comment on above: Performed By: #### C BC, FE and TIBC, CMP, [id number], OKSANA ####[place] [id number] [facility] CO2 [Moles/Vol] 21.0 mmol/L Normal 21.0-31.0 [facility] Comment on above: Performed By: #### C BC, FE and TIBC, CMP, [id number], OKSANA ####[place] [id number] [facility] Creatinine [Mass/Vol] 4.44 mg/dL High 0.70-1.30 [facility] Comment on above: Performed By: #### C BC, FE and TIBC, CMP, [id number], OKSANA ####[place] [id number] [facility] Creatinine Clr Calc Pharmacy 19.02 [facility] Comment on above: Performed By: #### C BC, FE and TIBC, CMP, [id number], OKSANA ####[place] [id number] [facility] GFR/1.73 sq M.predicted MDRD (S/P/Bld) [Vol rate/Area] 13.367 mL/min/{1.73_m2} Normal [facility] Comment on above: Performed By: #### C BC, FE and TIBC, CMP, [id number], OKSANA ####[address] [address] [facility] Globulin (S) [Mass/Vol] 5.3 g/dL Normal [facility] Comment on above: Performed By: #### C BC, FE and TIBC, CMP, [id number], OKSANA ####[address] Glucose [Mass/Vol] 110 mg/dL High 70-100 [facility] Comment on above: Result Comment: [facility] Glucose Reference Range is dependent on time and content of last meal. Glucose of more than 200 mg/dL in a nonstressed, ambulatory subject supports the diagnosis of Diabetes Mellitus. ADA recommended reference range Performed By: #### C BC, FE and TIBC, CMP, [id number], OKSANA ####[place] [id number] [facility] Potassium [Moles/Vol] 4.5 mmol/L Normal 3.5-5.1 [facility] Comment on above: Performed By: #### C BC, FE and TIBC, CMP, [id number], OKSANA ####[place] [id number] [facility] Protein [Mass/Vol] 7.9 g/dL Normal 6.4-8.9 [facility] Comment on above: Performed By: #### C BC, FE and TIBC, CMP, [id number], OKSANA ####[place] [id number] [place] Sodium [Moles/Vol] 140 mmol/L Normal 136-145 [facility] Comment on above: Performed By: #### C BC, FE and TIBC, CMP, [id number], OKSANA ####[facility] [id number] [place] [address] [facility] Urea nitrogen [Mass/Vol] 38 mg/dL High 7-25 [facility] Comment on above: Performed By: #### C BC, FE and TIBC, CMP, [id number], OKSANA ####[facility] [place] [address] [facility] Creatinine [Mass/volume] in Serum or PlasmaOrdered By: Julian Jones on 08-31-2022 Creatinine [Mass/Vol] 4.44 mg/dL 0.70-1.30 [facility] ECH echo transthoracicon ECH echo transthoracic Normal [facility] Eosinophils Auto (Bld) [#/Vo l]Ordered By: Isamar Mar on 08-31-2022 Eosinophils (Bld) [#/Vol] 0.4 10*3/uL 0.0-0.45 [facility] Eosinophils/100 WBC Auto (Bl d)Ordered By: Isamar Mar on 08-31-2022 Eosinophils/100 WBC (Bld) 3.5 % . [facility] Erythrocyte distribution wid th Auto (RBC) [Ratio]Ordered By: Isamar Mar on 08-31-2022 Erythrocyte distribution width (RBC) [Ratio] 16.8 % 12.0-14.8 [facility] Ferritinon 08-31-2022 Ferritin [Mass/Vol] 685.8 ng/mL High 23.9-336.2 [facility] Comment on above: Performed By: #### C BC, FE and TIBC, CMP, [id number], OKSANA ####[facility] [id number] [place] [address] [place] Ferritin [Mass/volume] in Se rum or PlasmaOrdered By: Yisel Andrade on 08-31-2022 Ferritin [Mass/Vol] 685.8 ng/mL 23.9-336.2 [facility] Folate [Mass/volume] in Seru m or PlasmaOrdered By: Yisel Andrade on 08-31-2022 Folate [Mass/Vol] 32.0 ng/mL >5.9 [facility] Globulin Calc (S) [Mass/Vol] Ordered By: Julian Jones on 08-31-2022 Globulin (S) [Mass/Vol] 5.3 g/dL [facility] Glucose [Mass/volume] in Ser um or PlasmaOrdered By: Julian Gilesomar on 08-31-2022 Glucose [Mass/Vol] 110 mg/dL 70-100 [facility] Hematocrit Auto (Bld) [Volum e fraction]Ordered By: Isamar Mar on 08-31-2022 Hematocrit (Bld) [Volume fraction] 27.1 % 38.8-50.0 [facility] Hemoglobin [Mass/volume] in BloodOrdered By: Isamar Mar on 08-31-2022 Hemoglobin (Bld) [Mass/Vol] 8.7 g/dL 13.0-17.0 [facility] Iron [Mass/volume] in Serum or PlasmaOrdered By: Yisel Andrade on 08-31-2022 Iron [Mass/Vol] 67 ug/dL 50-212 [facility] Iron and TIBC Profileon 08-06 % Iron Saturation 40.6 % Normal 20-50 [facility] Comment on above: Performed By: #### C BC, FE and TIBC, CMP, [id number], OKSANA ####[facility] [id number] [place] [address] [facility] Iron [Mass/Vol] 67 ug/dL Normal 50-212 [facility] Comment on above: Performed By: #### C BC, FE and TIBC, CMP, [id number], OKSANA ####[facility] [id number] [place] [address] [facility] Total Iron Binding Capacity 165 ug/dL Low 255-450 [facility] Comment on above: Performed By: #### C BC, FE and TIBC, CMP, [id number], OKSANA ####[facility] [place] [id number] [facility] Transferrin [Mass/Vol] 118 mg/dL Low 203-362 [facility] Comment on above: Performed By: #### C BC, FE and TIBC, CMP, [id number], OKSANA ####[facility] [id number] [place] [id number] [facility] Iron binding capacity [Mass/ volume] in Serum or PlasmaOrdered By: Yisel Andrade on 08-31-2022 Iron binding capacity [Mass/Vol] 165 ug/dL 255-450 [facility] Iron saturation [Mass Fracti on] in Serum or PlasmaOrdered By: Yisel Andrade on 08-31-2022 Iron saturation [Mass fraction] 40.6 % 20-50 [facility] Leukocytes [#/volume] correc lakesha for nucleated erythrocytes in Blood by Automated counOrdered By: Isamar Mar on 08-31-2022 WBC corrected for nucl RBC Auto (Bld) [#/Vol] 11.9 10*3/uL 4.1-10.5 [facility] Lymphocytes Auto (Bld) [#/Vo l]Ordered By: Isamar Mar on 08-31-2022 Lymphocytes (Bld) [#/Vol] 3.9 10*3/uL 1.00-4.8 [facility] Lymphocytes/100 WBC Auto (Bl d)Ordered By: Isamar Mar on 08-31-2022 Lymphocytes/100 WBC (Bld) 32.8 % . [facility] MCH Auto (RBC) [Entitic mass ]Ordered By: Isamar Mar on 08-31-2022 MCH (RBC) [Entitic mass] 29.7 pg 27.5-35.2 [facility] MCHC Auto (RBC) [Mass/Vol]Or dered By: Isamar Mar on 08-31-2022 MCHC (RBC) [Mass/Vol] 32.2 g/dL 32.5-35.6 [facility] MCV Auto (RBC) [Entitic vol] Ordered By: Isamar Mar on 08-31-2022 MCV (RBC) [Entitic vol] 92.1 fL 83.5-101 [facility] Monocytes Auto (Bld) [#/Vol] Ordered By: Isamar Mar on 08-31-2022 Monocytes (Bld) [#/Vol] 1.0 10*3/uL 0.0-0.8 [facility] Monocytes/100 WBC Auto (Bld) Ordered By: Isamar Mar on 08-31-2022 Monocytes/100 WBC (Bld) 8.4 % . [facility] Neutrophils Auto (Bld) [#/Vo l]Ordered By: Isamar Mar on 08-31-2022 Neutrophils (Bld) [#/Vol] 6.5 10*3/uL 1.8-7.7 [facility] Neutrophils/100 WBC Auto (Bl d)Ordered By: Isamar Mar on 08-31-2022 Neutrophils/100 WBC (Bld) 54.6 % . [facility] No Panel InformationOrdered By: Julian Gilesomar on 08-31-2022 13.367 mL/Min [facility] 19.02 [facility] Nucleated erythrocytes [Pres ence] in Blood by Automated countOrdered By: Isamar Mar on 08-31-2022 Nucleated RBC Auto Ql (Bld) 0.1 /100{WBC} 0-0.5 [facility] Platelet mean volume Auto (B ld) [Entitic vol]Ordered By: Isamar Mar on 08-31-2022 Platelet mean volume (Bld) [Entitic vol] 9.4 fL 6.6-10.1 [facility] Platelets Auto (Bld) [#/Vol] Ordered By: Isamar Mar on 08-31-2022 Platelets (Bld) [#/Vol] 244 10*3/uL 150-450 [facility] Potassium [Moles/volume] in Serum or PlasmaOrdered By: Obaydah Daromar on 08-31-2022 Potassium [Moles/Vol] 4.5 mmol/L 3.5-5.1 [facility] Protein [Mass/volume] in Ser um or PlasmaOrdered By: Obaydah Daromar on 08-31-2022 Protein [Mass/Vol] 7.9 g/dL 6.4-8.9 [facility] RBC Auto (Bld) [#/Vol]Ordere d By: Isamar Mar on 08-31-2022 RBC (Bld) [#/Vol] 2.94 10*6/uL 3.90-5.60 [facility] Serum or plasma albumin/glob ulin mass ratioOrdered By: Julian Jones on 08-31-2022 Albumin/Globulin [Mass ratio] 0.5 {ratio} [facility] Serum or plasma anion gap de terminationOrdered By: Julian Gilesomaclaire on 08-31-2022 Anion gap [Moles/Vol] 12.5 mmol/L 6.0-15.0 [facility] Sodium [Moles/volume] in Ser um or PlasmaOrdered By: Julian Gilesomaclaire on 08-31-2022 Sodium [Moles/Vol] 140 mmol/L 136-145 [facility] Transferrin [Mass/volume] in Serum or PlasmaOrdered By: Yisel Andrade on 08-31-2022 Transferrin [Mass/Vol] 118 mg/dL 203-362 [facility] Urea nitrogen [Mass/volume] in Serum or PlasmaOrdered By: Julian Gilesomaclaire on 08-31-2022 Urea nitrogen [Mass/Vol] 38 mg/dL 7-25 [facility] Vancomycin [Mass/volume] in Serum or PlasmaOrdered By: Isamar Mar on 08-31-2022 Vancomycin [Mass/Vol] 13.8 ug/mL 5.0-20.0 [facility] Vancomycin,Randomon 09-01-19 23 Vancomycin,Random 13.8 ug/mL Normal 5.0-20.0 [facility] Comment on above: Order Comment: Date of last dose?: [id number] Time of last dose?: 1650 Result Comment: Last dose: -PERFORMED BY:[facility] [place], [place] [phone] MEDICAL DIRECTORCHRISTO PINO M.D. Performed By: #### V ANCR ####[facility] [place] [address] [place] Vit. B12/Folate Profileon Cobalamin (Vitamin B12) [Mass/Vol] 2487 pg/mL High 180-914 [facility] Comment on above: Performed By: #### C BC, FE and TIBC, CMP, [id number], OKSANA ####[place] [address] [address] Folate 32.0 ng/mL Normal >5.9 [facility] Comment on above: Result Comment: Yessenia te reference range: >5.9 ng/ml The WHO technical consultation on folate and vitamin b12 deficiencies has determined that folate concentrations less than 4 ng/ml are considered deficient.PERFORMED BY:[address] [place], [place] [phone] MEDICAL DIRECTORCHRISTO PINO M.D. Performed By: #### C BC, FE and TIBC, CMP, [id number], OKSANA ####[address] Vitamin B12 ser/plasOrdered By: Yisel Andrade on 08-31-2022 Cobalamin (Vitamin B12) [Mass/Vol] 2487 pg/mL 180-914 [facility] WBC Auto (Bld) [#/Vol]Ordere d By: Isamar Mar on 08-31-2022 WBC (Bld) [#/Vol] 11.9 10*3/uL 4.1-10.5 [facility] Bacterial blood cultureOrder ed By: Landon Grullon on 08-30-2022 Bacteria identified Cx Nom (Bld) NO GROWTH 5 DAYS [facility] Basic Metabolic Panelon 08-06 Anion gap [Moles/Vol] 12.3 mmol/L Normal 6.0-15.0 [facility] Comment on above: Performed By: #### C BC, BMP ####[place] [id number] [facility] Calcium [Mass/Vol] 7.6 mg/dL Low 8.6-10.3 [facility] Comment on above: Performed By: #### C BC, BMP ####[place] [id number] [facility] Chloride [Moles/Vol] 109 mmol/L High 98-107 [facility] Comment on above: Performed By: #### C BC, BMP ####[place] [address] [place] [address] [facility] CO2 [Moles/Vol] 20.3 mmol/L Low 21.0-31.0 [facility] Comment on above: Performed By: #### C BC, BMP ####[place] [address] [place] [id number] [facility] Creatinine [Mass/Vol] 4.71 mg/dL High 0.70-1.30 [facility] Comment on above: Performed By: #### C NETO, BMP ####[place] [address] [place] [id number] [facility] Creatinine Clr Calc Pharmacy 16.48 [facility] Comment on above: Result Comment: PERF ORMED BY:[address] [place], [place] [id number] MEDICAL MOOSE PINO M.D. Performed By: #### C NETO, BMP ####[place] [address] [place] [id number] [facility] GFR/1.73 sq M.predicted MDRD (S/P/Bld) [Vol rate/Area] 12.454 mL/min/{1.73_m2} [facility] Comment on above: Performed By: #### C NETO, BMP ####[place] [address] [place] [id number] [facility] Glucose [Mass/Vol] 141 mg/dL High 70-100 [facility] Comment on above: Result Comment: [place] Glucose Reference Range is dependent on time and content of last meal. Glucose of more than 200 mg/dL in a nonstressed, ambulatory subject supports the diagnosis of Diabetes Mellitus. ADA recommended reference range Performed By: #### C BC, BMP ####[place] [address] [place] [id number] [facility] Potassium [Moles/Vol] 4.6 mmol/L Normal 3.5-5.1 [facility] Comment on above: Performed By: #### C BC, BMP ####[place] [address] [place] [address] [facility] Sodium [Moles/Vol] 137 mmol/L Normal 136-145 [facility] Comment on above: Performed By: #### C BC, BMP ####[address] [address] [facility] Urea nitrogen [Mass/Vol] 39 mg/dL High 7-25 [facility] Comment on above: Performed By: #### C BC, BMP ####[address] [address] [facility] Blood Cultureon 08-30-2022 Bacteria identified Cx Nom (Bld) No Growth 1 Day PERFORMED BY: [facility] [address] [place] [id number] PATHOLOGIST SOUND EFFECTS PERSON CHRISTO PINO M.D. [facility] Comment on above: Performed By: #### C UBLD ####[place] [id number] [facility] Complete Blood Count Auto Di ffon 08-30-2022 Basophils (Bld) [#/Vol] 0.1 10*3/uL Normal 0.0-0.2 [facility] Comment on above: Result Comment: PERF ORMED BY:[address] [place], [place] [id number] MEDICAL DIRECTORCHRISTO PINO M.D. Performed By: #### C BC, BMP ####[place] [id number] [facility] Basophils/100 WBC (Bld) 0.5 % Normal . [facility] Comment on above: Performed By: #### C BC, BMP ####[place] [id number] [facility] Eosinophils (Bld) [#/Vol] 0.3 10*3/uL Normal 0.0-0.45 [facility] Comment on above: Performed By: #### C BC, BMP ####[place] [id number] [facility] Eosinophils/100 WBC (Bld) 2.5 % Normal . [facility] Comment on above: Performed By: #### C NETO, BMP ####[address] Erythrocyte distribution width (RBC) [Ratio] 16.5 % High 12.0-14.8 [facility] Comment on above: Performed By: #### C NETO, BMP ####[address] Hematocrit (Bld) [Volume fraction] 28.1 % Low 38.8-50.0 [facility] Comment on above: Performed By: #### C NETO, BMP ####[address] Hemoglobin (Bld) [Mass/Vol] 9.0 g/dL Low 13.0-17.0 [facility] Comment on above: Performed By: #### C NETO, BMP ####[address] Lymphocytes (Bld) [#/Vol] 3.6 10*3/uL Normal 1.00-4.8 [facility] Comment on above: Performed By: #### C NETO, BMP ####[address] Lymphocytes/100 WBC (Bld) 27.7 % Normal . [facility] Comment on above: Performed By: #### C NETO, BMP ####[address] MCH (RBC) [Entitic mass] 30.2 pg Normal 27.5-35.2 [facility] Comment on above: Performed By: #### C NETO, BMP ####[address] MCV (RBC) [Entitic vol] 94.2 fL Normal 83.5-101 [facility] Comment on above: Performed By: #### C NETO, BMP ####[address] Mean Corpuscular HGB Conc 32.1 g/dL Low 32.5-35.6 [facility] Comment on above: Performed By: #### C NETO, BMP ####[address] Monocytes (Bld) [#/Vol] 1.1 10*3/uL High 0.0-0.8 [facility] Comment on above: Performed By: #### C NETO, BMP ####[address] Monocytes/100 WBC (Bld) 8.2 % Normal . [facility] Comment on above: Performed By: #### C NETO, BMP ####[address] Neutrophils (Bld) [#/Vol] 7.9 10*3/uL High 1.8-7.7 [facility] Comment on above: Performed By: #### C NETO, BMP ####[address] Neutrophils/100 WBC (Bld) 61.1 % Normal . [facility] Comment on above: Performed By: #### C NETO, BMP ####[address] NRBC% 0.2 /100{WBC} Normal 0-0.5 [facility] Comment on above: Performed By: #### C NETO, BMP ####[place] [id number] [facility] Platelet mean volume (Bld) [Entitic vol] 10.2 fL High 6.6-10.1 [facility] Comment on above: Performed By: #### C NETO, BMP ####[place] [id number] [facility] Platelets (Bld) [#/Vol] 257 10*3/uL Normal 150-450 [facility] Comment on above: Performed By: #### C NETO, BMP ####[place] [id number] [facility] RBC (Bld) [#/Vol] 2.98 10*6/uL Low 3.90-5.60 [facility] Comment on above: Performed By: #### C NETO, ANNEMARIE ####[facility] [facility] [id number] [place] [address] [facility] WBC (Bld) [#/Vol] 13.0 10*3/uL High 4.1-10.5 [facility] Comment on above: Performed By: #### C NETO, BMP ####[facility] [place] [address] [facility] Glucose Glucometer (BldC) [M ass/Vol]Ordered By: Julian Jones on 08-30-2022 Glucose [Mass/Vol] 320 mg/dL [facility] Glucose Poct Glucometerson 0 08-30-2022 Commemt1 Glu2: Cleaned Meter [facility] Comment on above: Result Comment: PERF ORMED BY:[address] [place]ITTNYEllenJeanetteM[place], [place] [phone] MEDICAL DIRECTORCHRISTO PINO M.D. Performed By: #### G JERRY ####Point of Care testing, Glucose [Mass/Vol] 320 mg/dL Normal [facility] Comment on above: Result Comment: [facility] Glucose Reference Range is dependent on time and content of last meal. Glucose of more than 200 mg/dL in a nonstressed, ambulatory subject supports the diagnosis of Diabetes Mellitus. Performed By: #### G LULS ####Point of Care testing, Commemt1 Glu2: Cleaned Meter Normal [facility] Comment on above: Result Comment: PERF ORMED BY:[address] [place], [place] [phone] MEDICAL DIRECTORCHRISTO PINO M.D. Performed By: #### G LULS ####Point of Care testing, Glucose [Mass/Vol] 167 mg/dL Normal [facility] Comment on above: Result Comment: [place] Glucose Reference Range is dependent on time and content of last meal. Glucose of more than 200 mg/dL in a nonstressed, ambulatory subject supports the diagnosis of Diabetes Mellitus. Performed By: #### G LULS ####Point of Care testing, Commemt1 Glu2: Cleaned Meter Normal [facility] Comment on above: Result Comment: PERF ORMED BY:[facility] [place], [place] [phone] MEDICAL DIRECTORCHRISTO PINO M.D. Performed By: #### G LULS ####Point of Care testing, Glucose [Mass/Vol] 208 mg/dL Normal [facility] Comment on above: Result Comment: [place] Glucose Reference Range is dependent on time and content of last meal. Glucose of more than 200 mg/dL in a nonstressed, ambulatory subject supports the diagnosis of Diabetes Mellitus. Performed By: #### G LULS ####Point of Care testing, MR foot RT wo conon 08-31-19 MR foot RT wo con Normal [facility] MR lower leg RT wo conon MR lower leg RT wo con Normal [facility] No Panel InformationOrdered By: Julian Jones on 08-30-2022 Glu2: cleaned meter [facility] US renal BIon 08-30-2022 US renal BI Normal [facility] Activated partial thrombopla stin time (aPTT) in platelet poor plasma by coagulation aOrdered By: Iris Dwyer on 08-29-2022 aPTT Coag (PPP) [Time] 28.0 s 25.1-36.5 [facility] Automated erythrocytes count in urine sediment (number/area)Ordered By: Landon Grullon on 08-29-2022 RBC Auto (Urine sed) [#/Area] 3-4 [HPF] 0-4 [facility] Automated leukocytes count i n urine sediment (number/area)Ordered By: Landon Grullon on 08-29-2022 WBC Auto (Urine sed) [#/Area] 3-4 [HPF] 0-4 [facility] Basic Metabolic Panelon 08-06 Anion gap [Moles/Vol] 13.0 mmol/L Normal 6.0-15.0 [facility] Comment on above: Performed By: #### B MP LACTIC, CBC ####[place] [id number] [facility] Calcium [Mass/Vol] 7.8 mg/dL Low 8.6-10.3 [facility] Comment on above: Performed By: #### B MP LACTIC, CBC ####[place] [id number] [facility] Chloride [Moles/Vol] 105 mmol/L Normal 98-107 [facility] Comment on above: Performed By: #### B KIMBERLY LACTIC, CBC ####[address] CO2 [Moles/Vol] 20.4 mmol/L Low 21.0-31.0 [facility] Comment on above: Performed By: #### B MP LACTIC, CBC ####[place] [id number] [facility] Creatinine [Mass/Vol] 5.00 mg/dL High 0.70-1.30 [facility] Comment on above: Performed By: #### B KIMBERLY LACTIC, CBC ####[place] [id number] [facility] Creatinine Clr Calc Pharmacy 17.44 [facility] Comment on above: Result Comment: PERF ORMED BY:[address] [place], [place] [phone] MEDICAL MOOSE PINO M.D. Performed By: #### B MP, LACTIC, CBC ####[place] [id number] [facility] GFR/1.73 sq M.predicted MDRD (S/P/Bld) [Vol rate/Area] 11.592 mL/min/{1.73_m2} [facility] Comment on above: Performed By: #### B MP, LACTIC, CBC ####[place] [id number] [facility] Glucose [Mass/Vol] 165 mg/dL High 70-100 [facility] Comment on above: Result Comment: [facility] Glucose Reference Range is dependent on time and content of last meal. Glucose of more than 200 mg/dL in a nonstressed, ambulatory subject supports the diagnosis of Diabetes Mellitus. ADA recommended reference range Performed By: #### B MP, LACTIC, CBC ####[facility] [id number] [place] [id number] [facility] Potassium [Moles/Vol] 4.4 mmol/L Normal 3.5-5.1 [facility] Comment on above: Result Comment: Hemo lysis is present at a level that could interfere with the result. Performed By: #### B MP, LACTIC, CBC ####[facility] [id number] [place] [id number] [facility] Sodium [Moles/Vol] 134 mmol/L Low 136-145 [facility] Comment on above: Performed By: #### B MP, LACTIC, CBC ####[place] [address] [place] [id number] [facility] Urea nitrogen [Mass/Vol] 37 mg/dL High -25 [facility] Comment on above: Performed By: #### B MP, LACTIC, CBC ####[facility] [id number] [place] [id number] [facility] Bilirubin Test strip Ql (U)O rdered By: Landon Grullon on 08-29-2022 Bilirubin Ql (U) Negative Negative [facility] Color Auto (U)Ordered By: Fr bean Grullon on 08-29-2022 Color (U) Yellow Yellow [facility] Complete Blood Count Auto Di ffon 08-29-2022 Basophils (Bld) [#/Vol] 0.1 10*3/uL Normal 0.0-0.2 [facility] Comment on above: Result Comment: PERF ORMED BY:[address] [place], [place] [phone] MEDICAL DIRECTORCHRISTO PINO M.D. Performed By: #### B MP, LACTIC, CBC ####[address] Basophils/100 WBC (Bld) 0.6 % Normal . [facility] Comment on above: Performed By: #### B MP, LACTIC, CBC ####[address] Eosinophils (Bld) [#/Vol] 0.4 10*3/uL Normal 0.0-0.45 [facility] Comment on above: Performed By: #### B MP, LACTIC, CBC ####[address] Eosinophils/100 WBC (Bld) 3.1 % Normal . [facility] Comment on above: Performed By: #### B MP, LACTIC, CBC ####[address] Erythrocyte distribution width (RBC) [Ratio] 16.8 % High 12.0-14.8 [facility] Comment on above: Performed By: #### B MP, LACTIC, CBC ####[address] Hematocrit (Bld) [Volume fraction] 30.1 % Low 38.8-50.0 [facility] Comment on above: Performed By: #### B MP, LACTIC, CBC ####[address] Hemoglobin (Bld) [Mass/Vol] 9.8 g/dL Low 13.0-17.0 [facility] Comment on above: Performed By: #### B MP, LACTIC, CBC ####[address] Lymphocytes (Bld) [#/Vol] 3.9 10*3/uL Normal 1.00-4.8 [facility] Comment on above: Performed By: #### B MP, LACTIC, CBC ####[place] [id number] [facility] Lymphocytes/100 WBC (Bld) 31.4 % Normal . [facility] Comment on above: Performed By: #### B MP, LACTIC, CBC ####[address] [address] [facility] MCH (RBC) [Entitic mass] 30.4 pg Normal 27.5-35.2 [facility] Comment on above: Performed By: #### B MP, LACTIC, CBC ####[address] [address] [facility] MCV (RBC) [Entitic vol] 93.2 fL Normal 83.5-101 [facility] Comment on above: Performed By: #### B MP, LACTIC, CBC ####[place] [id number] [facility] Mean Corpuscular HGB Conc 32.6 g/dL Normal 32.5-35.6 [facility] Comment on above: Performed By: #### B MP, LACTIC, CBC ####[address] Monocytes (Bld) [#/Vol] 1.1 10*3/uL High 0.0-0.8 [facility] Comment on above: Performed By: #### B MP, LACTIC, CBC ####[place] [id number] [facility] Monocytes/100 WBC (Bld) 19.10 % Normal 0.00-20.00 [facility] Comment on above: Performed By: #### B MP, LACTIC, CBC ####[place] [address] [facility] Monocytes/100 WBC (Bld) 8.8 % Normal . [facility] Comment on above: Performed By: #### B MP, LACTIC, CBC ####[place] [id number] [facility] Neutrophils (Bld) [#/Vol] 7.0 10*3/uL Normal 1.8-7.7 [facility] Comment on above: Performed By: #### B MP, LACTIC, CBC ####[place] [id number] [facility] Neutrophils/100 WBC (Bld) 56.1 % Normal . [facility] Comment on above: Performed By: #### B MP, LACTIC, CBC ####[address] NRBC% 0.0 /100{WBC} Normal 0-0.5 [facility] Comment on above: Performed By: #### B MP, LACTIC, CBC ####[address] Platelet mean volume (Bld) [Entitic vol] 10.3 fL High 6.6-10.1 [facility] Comment on above: Performed By: #### B MP, LACTIC, CBC ####[address] Platelets (Bld) [#/Vol] 291 10*3/uL Normal 150-450 [facility] Comment on above: Performed By: #### B MP, LACTIC, CBC ####[address] RBC (Bld) [#/Vol] 3.23 10*6/uL Low 3.90-5.60 [facility] Comment on above: Performed By: #### B MP, LACTIC, CBC ####[address] WBC (Bld) [#/Vol] 12.5 10*3/uL High 4.1-10.5 [facility] Comment on above: Performed By: #### B MP, LACTIC, CBC ####[address] Dipstick and Microscopicon 0 08-29-2022 Appearance (U) Clear Normal Clear [facility] Comment on above: Order Comment: Name Collection Type:: Sanchez Catheter Performed By: #### A DDONUAPLUS ####[address] Bacteria,Urine None Seen Normal None Seen [facility] Comment on above: Order Comment: Name Collection Type:: Sanchez Catheter Performed By: #### A DDONUAPLUS ####[address] [address] [facility] Bilirubin,Urine Negative Normal Negative [facility] Comment on above: Order Comment: Name Collection Type:: Sanchez Catheter Performed By: #### A DDONUAPLUS ####[address] [address] [facility] Color (U) Yellow Normal Yellow [facility] Comment on above: Order Comment: Name Collection Type:: Sanchez Catheter Performed By: #### A DDONUAPLUS ####[address] [address] [facility] Glucose Ql (U) Normal Normal Normal [facility] Comment on above: Order Comment: Name Collection Type:: Sanchez Catheter Performed By: #### A DDONUAPLUS ####[address] [address] [facility] Hyaline Casts,Urine 0-8 Normal 0-8 [facility] Comment on above: Order Comment: Name Collection Type:: Sanchez Catheter Result Comment: PERF ORMED BY:[address] [place], [place] [phone] MEDICAL DIRECTORCHRISTO PINO M.D. Performed By: #### A DDONUAPLUS ####[address] [address] [facility] Ketones Ql (U) Negative Normal Negative [facility] Comment on above: Order Comment: Name Collection Type:: Sanchez Catheter Performed By: #### A DDONUAPLUS ####[address] [address] [facility] Leukocyte esterase Test strip Ql (U) Negative Normal Negative [facility] Comment on above: Order Comment: Name Collection Type:: Sanchez Catheter Performed By: #### A DDONUAPLUS ####[address] [address] [facility] Nitrite,Urine Negative Normal Negative [facility] Comment on above: Order Comment: Name Collection Type:: Sanchez Catheter Performed By: #### A DDONUAPLUS ####[address] [address] [facility] Occult Blood,Urine Trace High Negative [facility] Comment on above: Order Comment: Name Collection Type:: Sanchez Catheter Result Comment: PERF ORMED BY:[address] [place], [place] [phone] MEDICAL DIRECTORCHRISTO PINO M.D. Performed By: #### A DDONUAPLUS ####[place] [id number] [facility] pH (U) 5.5 [pH] Normal 5.0-9.0 [facility] Comment on above: Order Comment: Name Collection Type:: Sanchez Catheter Performed By: #### A DDONUAPLUS ####[place] [id number] [facility] Protein (U) [Mass/Vol] 300 mg/dL High Negative [facility] Comment on above: Order Comment: Name Collection Type:: Sanchez Catheter Performed By: #### A DDONUAPLUS ####[place] [id number] [facility] RBC,Urine 3-4 Normal 0-4 [facility] Comment on above: Order Comment: Name Collection Type:: Sanchez Catheter Performed By: #### A DDONUAPLUS ####[place] [id number] [facility] Specificy [place],Urine 1.015 Normal 1.001-1.030 [facility] Comment on above: Order Comment: Name Collection Type:: Sanchez Catheter Performed By: #### A DDONUAPLUS ####[address] [address] [facility] Squamous Epithelial Cell,Urine 1-2 Normal 0-2 [facility] Comment on above: Order Comment: Name Collection Type:: Sanchez Catheter Performed By: #### A DDONUAPLUS ####[place] [id number] [facility] Urobilinogen,Urine Normal Normal Normal [facility] Comment on above: Order Comment: Name Collection Type:: Sanchez Catheter Performed By: #### A DDONUAPLUS ####[facility] [address] [place] [address] [facility] WBC,Urine 3-4 Normal 0-4 [facility] Comment on above: Order Comment: Name Collection Type:: Sanchez Catheter Performed By: #### A DDONUAPLUS ####[facility] [address] [place] [address] [facility] Glucose Poct Glucometerson 0 08-29-2022 Glucose [Mass/Vol] 149 mg/dL Normal [facility] Comment on above: Result Comment: [facility] Glucose Reference Range is dependent on time and content of last meal. Glucose of more than 200 mg/dL in a nonstressed, ambulatory subject supports the diagnosis of Diabetes Mellitus.PERFORMED BY:[place] [address] [place], [place] [phone] MEDICAL DIRECTORCHRISTO PINO M.D. Performed By: #### G LULS ####Point of Care testing, Commemt1 Glu2: Cleaned Meter Normal [facility] Comment on above: Result Comment: PERF ORMED BY:[place] [address] [address] [place], [place] [phone] MEDICAL DIRECTORCHRISTO PINO M.D. Performed By: #### G LULS ####Point of Care testing, Glucose [Mass/Vol] 200 mg/dL Normal [facility] Comment on above: Result Comment: [facility] Glucose Reference Range is dependent on time and content of last meal. Glucose of more than 200 mg/dL in a nonstressed, ambulatory subject supports the diagnosis of Diabetes Mellitus. Performed By: #### G LULS ####Point of Care testing, Ketones Auto test strip (U) [Mass/Vol]Ordered By: Landon Grullon on 08-29-2022 Ketones (U) [Mass/Vol] Negative Negative [facility] Lactate [Moles/volume] in Se rum or PlasmaOrdered By: Iris Dwyer on 08-29-2022 Lactate [Moles/Vol] 1.8 mmol/L 0.5-2.2 [facility] Lactic Acidon 08-29-2022 Lactate [Moles/Vol] 1.8 mmol/L Normal 0.5-2.2 [facility] Comment on above: Result Comment: PERF ORMED BY:[place] [address] [address] [place], [place] [phone] MEDICAL DIRECTORCHRISTO PINO M.D. Performed By: #### B MP, LACTIC, CBC ####[place] [address] [place] [address] [facility] Monocyte distribution width [Entitic volume] in Blood by AutomatedOrdered By: Iris Dwyer on 08-29-2022 Monocyte distribution width Auto (Bld) [Entitic vol] 19.10 % 0.00-20.00 [facility] Nitrite Test strip Ql (U)Ord ered By: Landon Grullon on 08-29-2022 Nitrite Ql (U) Negative Negative [facility] No Panel InformationOrdered By: Landon Grullon on 08-29-2022 0-8 [LPF] 0-8 [facility] No Panel InformationOrdered By: Iris Dwyer on 08-29-2022 13.7 s 9.0-12.9 [facility] Partial Thromboplastin Timeo n 08-29-2022 aPTT Coag (Bld) [Time] 28.0 s Normal 25.1-36.5 [facility] Comment on above: Result Comment: PERF ORMED BY:[place] [address] [address] [place], [place] [phone] MEDICAL MOOSE PINO M.D. Performed By: #### P T, PTT ####[address] [address] [facility] Platelet poor plasma interna tional normalized ratio (INR) by coagulation assay (relatOrdered By: Iris Dwyer on 08-29-2022 INR Coag (PPP) [Relative time] 1.2 {INR} [facility] Protein Auto test strip (U) [Mass/Vol]Ordered By: Landon Grullon on 05-25-2023 Protein (U) [Mass/Vol] 300 mg/dL Negative [facility] Prothrombin Time INRon 08-29 INR Coag (PPP) [Relative time] 1.2 {INR} Normal [facility] Comment on above: Result Comment: INR Therapeutic [...] 4.5 Performed By: #### P T, PTT ####[facility] [id number] [place] [id number] [facility] PT Coag (PPP) [Time] 13.7 s High 9.0-12.9 [facility] Comment on above: Performed By: #### P T, PTT ####[facility] [address] [place] [id number] [facility] Specific gravity Auto test s trip (U) [Rel density]Ordered By: Landon Grullon on 08-29-2022 Specific gravity (U) [Rel density] 1.015 1.001-1.030 [facility] Squamous epithelial cells de tection in urine sediment by light microscopyOrdered By: Landon Grullon on 08-29-2022 Epithelial cells.squamous LM Ql (Urine sed) 1-2 [HPF] 0-2 [facility] Urine bacteria detection by automated methodOrdered By: Landon Grullon on 08-29-2022 Bacteria Auto Ql (U) None seen None Seen [facility] Urine clarity by refractomet ry automatedOrdered By: Landon Grullon on 08-29-2022 Clarity Refractometry automated (U) Clear Clear [facility] Urine glucose measurement by automated test strip (mass/volume)Ordered By: Landon Grullon on 08-29-2022 Glucose Auto test strip (U) [Mass/Vol] Normal mg/dL Normal [facility] Urine hemoglobin detection b y automated test stripOrdered By: Landon Grullon on 08-29-2022 Hemoglobin Auto test strip Ql (U) Trace Negative [facility] Urine leukocyte esterase det ection by automated test stripOrdered By: Landon Grullon on 08-29-2022 Leukocyte esterase Auto test strip Ql (U) Negative Negative [facility] Urobilinogen Auto test strip (U) [Mass/Vol]Ordered By: Landon Grullon on 08-29-2022 Urobilinogen (U) [Mass/Vol] Normal mg/dL Normal [facility] Vancomycin,Randomon 08-30-19 Vancomycin,Random 10.1 ug/mL Normal 5.0-20.0 [facility] Comment on above: Order Comment: Date of last dose?: [id number] Time of last dose?: 1400 Result Comment: Last dose: -PERFORMED BY:[address] [place], [place] [phone] MEDICAL DIRECTORCHRISTO PINO M.D. Performed By: #### V ANCR ####[facility] [id number] [place] [address] [facility] pH Auto test strip (U)Ordere d By: Landon Grullon on 08-29-2022 pH (U) 5.5 [pH] 5.0-9.0 [facility] Bacteria identified Cx Nom ( Bld)Ordered By: Srinivas Aguilar on 08-27-2022 Bacterial blood culture Methicillin Resi s Staph Aureus [facility] Bacterial blood cultureOrder ed By: Srinivas Aguilar on 08-27-2022 Bacteria identified Cx Nom (Bld) NO GROWTH 5 DAYS [facility] Basic Metabolic Panelon 08-06 Anion gap [Moles/Vol] 14.8 mmol/L Normal 6.0-15.0 [facility] Comment on above: Performed By: #### B SHREYA HARRIS, CBC ####[facility] [address] [place] [address] [facility] Calcium [Mass/Vol] 7.9 mg/dL Low 8.6-10.3 [facility] Comment on above: Performed By: #### B LILLY HARRISLD, CBC ####[facility] [place] [address] [facility] Chloride [Moles/Vol] 102 mmol/L Normal 98-107 [facility] Comment on above: Performed By: #### B SHREYA HARRIS, CBC ####[facility] [place] [address] [facility] CO2 [Moles/Vol] 22.3 mmol/L Normal 21.0-31.0 [facility] Comment on above: Performed By: #### B SHREYA HARRIS, CBC ####[place] [address] [place] [address] [facility] Creatinine [Mass/Vol] 4.95 mg/dL High 0.70-1.30 [facility] Comment on above: Performed By: #### B SHREYA HARRIS, CBC ####[place] [address] [place] [address] [facility] Creatinine Clr Calc Pharmacy 17.55 [facility] Comment on above: Result Comment: PERF ORMED BY:[address] [place], [place] [phone] MEDICAL DIRECTORCHRISTO PINO M.D. Performed By: #### B SHREYA HARRIS CBC ####[place] [place] [address] [facility] GFR/1.73 sq M.predicted MDRD (S/P/Bld) [Vol rate/Area] 11.732 mL/min/{1.73_m2} [facility] Comment on above: Performed By: #### B SHREYA HARRIS, CBC ####[place] [place] [address] [facility] Glucose [Mass/Vol] 202 mg/dL High 70-100 [facility] Comment on above: Result Comment: [place] Glucose Reference Range is dependent on time and content of last meal. Glucose of more than 200 mg/dL in a nonstressed, ambulatory subject supports the diagnosis of Diabetes Mellitus. ADA recommended reference range Performed By: #### B SHREYA HARRIS, CBC ####[place] [place] [address] [place] Potassium [Moles/Vol] 4.1 mmol/L Normal 3.5-5.1 [facility] Comment on above: Performed By: #### B SHREYA HARRIS, CBC ####[place] [address] [place] [id number] [facility] Sodium [Moles/Vol] 135 mmol/L Low 136-145 [facility] Comment on above: Performed By: #### B SHREYA HARRIS, CBC ####[place] [address] [place] [id number] [facility] Urea nitrogen [Mass/Vol] 39 mg/dL High 7-25 [facility] Comment on above: Performed By: #### B SHREYA HARRIS, CBC ####[place] [address] Basophils Auto (Bld) [#/Vol] Ordered By: Srinivas Aguilar on 08-27-2022 Basophils (Bld) [#/Vol] 0.1 10*3/uL 0.0-0.2 [facility] Basophils/100 WBC Auto (Bld) Ordered By: Srinivas Aguilar on 08-27-2022 Basophils/100 WBC (Bld) 0.4 % . [facility] Blood Cultureon 08-27-2022 Bacteria identified Cx Nom (Bld) [facility] Comment on above: Performed By: #### B SHREYA HARRIS, CBC ####[place] [id number] [facility] Bacteria identified Cx Nom (Bld) No Growth 4 Days PERFORMED BY: [facility] [address] [place] [id number] PATHOLOGIST SOUND EFFECT[employer] PERSON CHRISTO PINO M.D. [facility] Comment on above: Performed By: #### B SHREYA HARRIS, CBC ####[place] [address] Calcium [Mass/volume] in Ser um or PlasmaOrdered By: Srinivas Aguilar on 08-27-2022 Calcium [Mass/Vol] 7.9 mg/dL 8.6-10.3 [facility] Carbon dioxide, total [Moles /volume] in Serum or PlasmaOrdered By: Srinivas Aguilar on 08-27-2022 CO2 [Moles/Vol] 22.3 mmol/L 21.0-31.0 [facility] Chloride [Moles/volume] in S leti or PlasmaOrdered By: Srinivas Aguilar on 08-27-2022 Chloride [Moles/Vol] 102 mmol/L 98-107 [facility] Complete Blood Count Auto Di ffon 08-27-2022 Basophils (Bld) [#/Vol] 0.1 10*3/uL Normal 0.0-0.2 [facility] Comment on above: Result Comment: PERF ORMED BY:[address] [place], [place] [id number] MEDICAL DIRECTORCHRISTO PINO M.D. Performed By: #### B SHREYA HARRIS, CBC ####[address] Basophils/100 WBC (Bld) 0.4 % Normal . [facility] Comment on above: Performed By: #### B SHREYA HARRIS, CBC ####[address] Eosinophils (Bld) [#/Vol] 0.4 10*3/uL Normal 0.0-0.45 [facility] Comment on above: Performed By: #### B SHREYA HARRIS, CBC ####[place] [id number] [facility] Eosinophils/100 WBC (Bld) 2.8 % Normal . [facility] Comment on above: Performed By: #### B LILLY HARRISLD, CBC ####[place] [id number] [facility] Erythrocyte distribution width (RBC) [Ratio] 16.8 % High 12.0-14.8 [facility] Comment on above: Performed By: #### B LILLY HARRISLD, CBC ####[place] [id number] [facility] Hematocrit (Bld) [Volume fraction] 28.4 % Low 38.8-50.0 [facility] Comment on above: Performed By: #### B SHREYA HARRIS, CBC ####[address] Hemoglobin (Bld) [Mass/Vol] 9.2 g/dL Low 13.0-17.0 [facility] Comment on above: Performed By: #### B SHREYA HARRIS, CBC ####[address] Lymphocytes (Bld) [#/Vol] 4.5 10*3/uL Normal 1.00-4.8 [facility] Comment on above: Performed By: #### B SHREYA HARRIS, CBC ####[address] Lymphocytes/100 WBC (Bld) 33.0 % Normal . [facility] Comment on above: Performed By: #### B SHREYA HARRIS, CBC ####[address] MCH (RBC) [Entitic mass] 30.7 pg Normal 27.5-35.2 [facility] Comment on above: Performed By: #### B SHREYA HARRIS, CBC ####[address] MCV (RBC) [Entitic vol] 94.9 fL Normal 83.5-101 [facility] Comment on above: Performed By: #### B SHREYA HARRIS, CBC ####[address] Mean Corpuscular HGB Conc 32.4 g/dL Low 32.5-35.6 [facility] Comment on above: Performed By: #### B SHREYA HARRIS, CBC ####[address] Monocytes (Bld) [#/Vol] 1.2 10*3/uL High 0.0-0.8 [facility] Comment on above: Performed By: #### B SHREYA HARRIS, CBC ####[place] [id number] [facility] Monocytes/100 WBC (Bld) 20.44 % High 0.00-20.00 [facility] Comment on above: Result Comment: For adults in ED, MDW > 20.0 may be associated with a higher risk of sepsis during the first 12 hrs of hospital admission Performed By: #### B SHREYA HARRIS, CBC ####[place] [id number] [facility] Monocytes/100 WBC (Bld) 8.6 % Normal . [facility] Comment on above: Performed By: #### B SHREYA HARRIS, CBC ####[address] Neutrophils (Bld) [#/Vol] 7.5 10*3/uL Normal 1.8-7.7 [facility] Comment on above: Performed By: #### B SHREYA HARRIS, CBC ####[place] [id number] [facility] Neutrophils/100 WBC (Bld) 55.2 % Normal . [facility] Comment on above: Performed By: #### B SHREYA HARRIS, CBC ####[address] NRBC% 0.1 /100{WBC} Normal 0-0.5 [facility] Comment on above: Performed By: #### B SHREYA HARRIS, CBC ####[place] [id number] [facility] Platelet mean volume (Bld) [Entitic vol] 9.6 fL Normal 6.6-10.1 [facility] Comment on above: Performed By: #### B SHREYA HARRIS, CBC ####[place] [id number] [facility] Platelets (Bld) [#/Vol] 277 10*3/uL Normal 150-450 [facility] Comment on above: Performed By: #### B SHREYA HARRIS, CBC ####[place] [address] [place] RBC (Bld) [#/Vol] 2.99 10*6/uL Low 3.90-5.60 [facility] Comment on above: Performed By: #### B SHREYA HARRIS, CBC ####[facility] [id number] WBC (Bld) [#/Vol] 13.7 10*3/uL High 4.1-10.5 [facility] Comment on above: Performed By: #### B SHREYA HARRIS, CBC ####[facility] [id number] Creatinine [Mass/volume] in Serum or PlasmaOrdered By: Srinivas Aguilar on 08-27-2022 Creatinine [Mass/Vol] 4.95 mg/dL 0.70-1.30 [facility] Eosinophils Auto (Bld) [#/Vo l]Ordered By: Srinivas Aguilar on 08-27-2022 Eosinophils (Bld) [#/Vol] 0.4 10*3/uL 0.0-0.45 [facility] Eosinophils/100 WBC Auto (Bl d)Ordered By: Srinivas Aguilar on 08-27-2022 Eosinophils/100 WBC (Bld) 2.8 % . [facility] Erythrocyte distribution wid th Auto (RBC) [Ratio]Ordered By: Srinivas Aguilar on 08-27-2022 Erythrocyte distribution width (RBC) [Ratio] 16.8 % 12.0-14.8 [facility] Glucose [Mass/volume] in Ser um or PlasmaOrdered By: Srinivas Aguilar on 08-27-2022 Glucose [Mass/Vol] 202 mg/dL 70-100 [facility] Hematocrit Auto (Bld) [Volum e fraction]Ordered By: Srinivas Aguilar on 08-27-2022 Hematocrit (Bld) [Volume fraction] 28.4 % 38.8-50.0 [facility] Hemoglobin [Mass/volume] in BloodOrdered By: Srinivas Aguilar on 08-27-2022 Hemoglobin (Bld) [Mass/Vol] 9.2 g/dL 13.0-17.0 [facility] Lactate [Moles/volume] in Se rum or PlasmaOrdered By: Srinivas Aguilar on 08-27-2022 Lactate [Moles/Vol] 2.3 mmol/L 0.5-2.2 [facility] Lactic Acidon 08-27-2022 Lactate [Moles/Vol] 2.3 mmol/L Off scale high 0.5-2.2 [facility] Comment on above: Order Comment: Unacc eptable specimen due to hemolysis. Redraw reordered. Result Comment: Crit ical Result : Called to and read back by: BETH DÍAZ at: 08/27/2022 13:58:03 by:[id number] BY:[facility] [place], [place] [id number] MEDICAL DIRECTORCHRISTO PINO M.D. Performed By: #### L ACTIC ####[place] [place] [address] [facility] Leukocytes [#/volume] correc lakesha for nucleated erythrocytes in Blood by Automated counOrdered By: Srinivas Aguilar on 08-27-2022 WBC corrected for nucl RBC Auto (Bld) [#/Vol] 13.7 10*3/uL 4.1-10.5 [facility] Lymphocytes Auto (Bld) [#/Vo l]Ordered By: Srinivas Aguilar on 08-27-2022 Lymphocytes (Bld) [#/Vol] 4.5 10*3/uL 1.00-4.8 [facility] Lymphocytes/100 WBC Auto (Bl d)Ordered By: Srinivas Aguilar on 08-27-2022 Lymphocytes/100 WBC (Bld) 33.0 % . [facility] MCH Auto (RBC) [Entitic mass ]Ordered By: Srinivas Aguilar on 08-27-2022 MCH (RBC) [Entitic mass] 30.7 pg 27.5-35.2 [facility] MCHC Auto (RBC) [Mass/Vol]Or dered By: Srinivas Aguilar on 08-27-2022 MCHC (RBC) [Mass/Vol] 32.4 g/dL 32.5-35.6 [facility] MCV Auto (RBC) [Entitic vol] Ordered By: Srinivas Aguilar on 08-27-2022 MCV (RBC) [Entitic vol] 94.9 fL 83.5-101 [facility] Monocyte distribution width [Entitic volume] in Blood by AutomatedOrdered By: Srinivas Aguilar on 08-27-2022 Monocyte distribution width Auto (Bld) [Entitic vol] 20.44 % 0.00-20.00 [facility] Monocytes Auto (Bld) [#/Vol] Ordered By: Srinivas Aguilar on 08-27-2022 Monocytes (Bld) [#/Vol] 1.2 10*3/uL 0.0-0.8 [facility] Monocytes/100 WBC Auto (Bld) Ordered By: Srinivas Aguilar on 08-27-2022 Monocytes/100 WBC (Bld) 8.6 % . [facility] Neutrophils Auto (Bld) [#/Vo l]Ordered By: Srinivas Aguilar on 08-27-2022 Neutrophils (Bld) [#/Vol] 7.5 10*3/uL 1.8-7.7 [facility] Neutrophils/100 WBC Auto (Bl d)Ordered By: Srinivas Aguilar on 08-27-2022 Neutrophils/100 WBC (Bld) 55.2 % . [facility] No Panel InformationOrdered By: Srinivas Aguilar on 08-27-2022 11.732 mL/Min [facility] 17.55 [facility] Nucleated erythrocytes [Pres ence] in Blood by Automated countOrdered By: Srinivas Aguilar on 08-27-2022 Nucleated RBC Auto Ql (Bld) 0.1 /100{WBC} 0-0.5 [facility] Platelet mean volume Auto (B ld) [Entitic vol]Ordered By: Srinivas Aguilar on 08-27-2022 Platelet mean volume (Bld) [Entitic vol] 9.6 fL 6.6-10.1 [facility] Platelets Auto (Bld) [#/Vol] Ordered By: Srinivas Aguilar on 08-27-2022 Platelets (Bld) [#/Vol] 277 10*3/uL 150-450 [facility] Potassium [Moles/volume] in Serum or PlasmaOrdered By: Srinivas Aguilar on 08-27-2022 Potassium [Moles/Vol] 4.1 mmol/L 3.5-5.1 [facility] RBC Auto (Bld) [#/Vol]Ordere d By: Srinivas Aguilar on 08-27-2022 RBC (Bld) [#/Vol] 2.99 10*6/uL 3.90-5.60 [facility] Serum or plasma anion gap de terminationOrdered By: Srinivas Aguilar on 08-27-2022 Anion gap [Moles/Vol] 14.8 mmol/L 6.0-15.0 [facility] Sodium [Moles/volume] in Ser um or PlasmaOrdered By: Srinivas Aguilar on 08-27-2022 Sodium [Moles/Vol] 135 mmol/L 136-145 [facility] Urea nitrogen [Mass/volume] in Serum or PlasmaOrdered By: Srinivas Aguilar on 08-27-2022 Urea nitrogen [Mass/Vol] 39 mg/dL 7-25 [facility] WBC Auto (Bld) [#/Vol]Ordere d By: Srinivas Aguilar on 08-27-2022 WBC (Bld) [#/Vol] 13.7 10*3/uL 4.1-10.5 [facility] XR foot RT min 3V*on 023 XR foot RT min 3V* Normal [facility] Bacteria identified Aer cx N om (Unsp spec)Ordered By: Mervat Santiago on 08-20-2022 Aerobic culture Pseudomonas aerugino sa (MDRO) [facility] Aerobic culture Pseudomonas aerugino sa (MDRO)#2 [facility] Superficial Wound Cultureon 08-20-2022 Superficial Wound Culture Normal [facility] Comment on above: Performed By: #### C [facility] ####[facility] [id number] [place] [address] [facility] Neda 07-24-2022 MESFIN Telephone (FVPRAD) SIMON LOTT ([id number]) 1950 M Date Time Provider Department 07/24/22 NATHEN MCCOY During your visit today, we recorded the following information about you: Nathen Mccoy APRN.CNP 07/24/2022 3:45 PM Signed Telephone Encounter~ Person of Contact: 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 He has a 10:30 arrival [...] SRIDHAR MCCOY (more content not included)... Normal [facility] Basic metabolic 2000 panelon 07-18-2022 Anion gap [Moles/Vol] 11 mmol/L Normal 9-18 [facility] Comment on above: Order Comment: Speci men Type: BLOOD SPECIMENOrdering Facility: [facility] Address: [address] [place] [address] Performed By: #### 2 4321-2 ####[facility]ORY[facility]IA [id number] [facility] [place] [address] [place] Calcium [Mass/Vol] 8.7 mg/dL Normal 8.5-10.2 [facility] Comment on above: Order Comment: Speci men Type: BLOOD SPECIMENOrdering Facility: [facility] Address: [address] [place] [place] [address] Performed By: #### 2 4321-2 ####[facility]ORYCLIA [id number] [place] [address] [place] Chloride [Moles/Vol] 108 mmol/L High 97-105 [facility] Comment on above: Order Comment: Speci men Type: BLOOD SPECIMENOrdering Facility: [facility] Address: [address] [address] Performed By: #### 2 4321-2 ####[facility]ORYCLIA [id number] [place] [address] [place] CO2 [Moles/Vol] 21 mmol/L Low 22-30 [facility] Comment on above: Order Comment: Speci men Type: BLOOD SPECIMENOrdering Facility: [facility] Address: [address] [place] [address] Performed By: #### 2 4321-2 ####[facility]ORYCLIA [id number] [place] [address] [place] Creatinine [Mass/Vol] 4.58 mg/dL High 0.73-1.22 [facility] Comment on above: Order Comment: Speci men Type: BLOOD SPECIMENOrdering Facility: [facility] Address: [address] [place] [address] Performed By: #### 2 4321-2 ####[facility]ATORYIA [id number] [place] [address] [place] ESTIMATED GLOMERULAR FILTRATION RATE 13 mL/min/1.73m??? Low >=60 [facility] Comment on above: Order Comment: Speci men Type: BLOOD SPECIMENOrdering Facility: [facility] Address: [address] [place] [address] Result Comment: Samantha mated Glomerular Filtration Rate [...] actual GFR. Performed By: #### 2 4321-2 ####[facility]ORYIA [id number] [place] [address] [place] Glucose [Mass/Vol] 155 mg/dL High 74-99 [facility] Comment on above: Order Comment: Speci men Type: BLOOD SPECIMENOrdering Facility: [facility] Address: [address] [address] Result Comment: The [place] Diabetes Association (ADA) provides guidance for cutoff [...] Standards of Medical Care in Diabetes 2016, [place] [employer] Association. Diabetes Care. 2016.39(Suppl 1). Performed By: #### 2 4321-2 ####[facility]ORYIA [id number] [place] [address] [place] Potassium [Moles/Vol] 5.0 mmol/L Normal 3.7-5.1 [facility] Comment on above: Order Comment: Carlos avendano Type: BLOOD SPECIMENOrdering Facility: [facility] Address: [address] [address] Performed By: #### 2 4321-2 ####[facility]ORYCLIA [id number] [place] [address] [place] Sodium [Moles/Vol] 140 mmol/L Normal 136-144 [facility] Comment on above: Order Comment: Sarahi men Type: BLOOD SPECIMENOrdering Facility: [facility] Address: [address] [address] Performed By: #### 2 4321-2 ####[facility]ORYIA [id number] [place] [address] [place] Urea nitrogen [Mass/Vol] 71 mg/dL High 9-24 [facility] Comment on above: Order Comment: Speci men Type: BLOOD SPECIMENOrdering Facility: [facility] Address: [place] [address] Performed By: #### 2 4321-2 ####[facility]ORYCLIA [id number] [place] [address] [place] CASE MANAGEMon 07-18-2022 CASE MANAGEM HNO ID: [id number] Author: MAYE Son Service: ? Author Type: Woven Label Designer Type: Care Mgt Progress Note Filed: 07/18/2022 2:29 PM Note Text: CARE MANAGEMENT DISCHARGE NOTE SERVICE DATE: July 18, 2022 SERVICE TIME: 2:28 PM Admission Date: 07/17/2022 LOS: 1 day Discharge Arrangement Discharge Arrangement: [facility] Facility Was an expedited discharge program used?: No Provider Name: [facility] Caregiver Assessment Caregiver is ready, willing and able to meet the patient's needs as recommended by the inter-professional team: Yes Name of Caregiver: 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 AVS to be sent via Careport. Bedside RN updated and provided with report number. Pt agreeable to plan. SIGNATURE: MAYE Son PATIENT NAME: Simon Lott DATE: July 18, 2022 TIME: 2:27 PM CONTACT #: [id number] [facility] CASE MGT INIT Mervat 2022 CASE MGT INIT ERNESTINE HNO ID: [id number] Author: MAYE Son Service: ? Author Type: Woven Label Designer Type: Care Mgt Initial Assessment Filed: 07/18/2022 11:08 AM Note Text: CARE MANAGEMENT: ASSESSMENT AND DISCHARGE PLAN SERVICE DATE: July 18, 2022 SERVICE TIME: 11:06 AM PCP: Maye Murray DO Primary Contact: Extended Emergency Contact Information Primary Emergency Contact: Anant Lott Address: [address] [place] [address] [facility] Mobile Relation: Brother Admission Status: Observation Insurance Provider: MEDICARE A AND B Discharge Planning requested by: Per Department Practice Potential Transition Plans [facility] Facility/Intermediate Care Facility Advance Directives Current Advance Directive: None Set Making Machine Operator Attempted to Assist with AD Completion: Yes Action: Education Provided Current Living Arrangements and Support Lives with: Type of Residence: [facility] Facility Does the patient have to climb stairs at home?: No Care Facility Name: [facility] Support: Family members How do you manage to accomplish the following: Needs Assistance: Ambulation;Bathe/Shower ;Dress;Meals/Meal Prep;Going to the bathroom;Medication Management;Transportati on to appointments/community Current Services/Equipment Current Post-Acute Service(s): DME Current DME Type: Wheelchair-electric Discharge Planning Patient Goal(s): Heal wounds [place] of Choice Explained: [place] of [place] Given: Yes Level of Care Discussed: [facility] Facility Are you interested in bedside delivery of your medications? No Discharge Planning Participant(s): Patient Patient/Family Comments: Caregiver Assessment: Caregiver is ready, willing and able to meet the patient's needs as recommended by the inter-professional team: Yes Name of Caregiver: [facility] Transport at Discharge: Transportation Arrangements: Ambulance Transportation Agency and Phone #:: [facility] [phone] Date of Trip: 04/14/23 Time of Trip: 1200 Type of Service: BLS Non-emergency Is Patient Medicaid Pending?: No Was transportation financial coverage discussed with family?: Patient Boiler Tube Blower Location: [place] Destination: [facility] Financial Care Management Responsibility: None Needs Prior to Discharge: Needs Prior to Discharge: Other: See Comment;Wound Care (Medical clearance) Post-Acute Discharge Plan: SW met with pt who is here for neph tube replacement. Pt is from [facility] under SNF. [place] Transport set for 12:00 pm Friday via MMT. At baseline pt uses an electric WC, which is currently at the facility. [facility] can accept back pt has bed hold days. SW to follow up. Packet by chart. SIGNATURE: MAYE Son PATIENT NAME: Simon Lott DATE: July 18, 2022 TIME: 11:06 AM CONTACT #: [id number] Normal [facility] CBC panel Auto (Bld)on 07-18 Erythrocyte distribution width (RBC) [Ratio] 16.6 % High 11.5-15.0 [facility] Comment on above: Order Comment: Carlos avendano Type: BLOOD SPECIMEN [facility] Address: [address] [address] Performed By: #### 5 8410-2 #### [facility] CLIA [id number] [place] [address] [place] Hematocrit (Bld) [Volume fraction] 28.8 % Low 39.0-51.0 [facility] Comment on above: Order Comment: Carlos avendano Type: BLOOD SPECIMEN [facility] Address: [address] [address] Performed By: #### 5 8410-2 #### [facility] CLIA [id number] [place] [address] [place] Hemoglobin (Bld) [Mass/Vol] 9.6 g/dL Low 13.0-17.0 [facility] Comment on above: Order Comment: Carlos avendano Type: BLOOD SPECIMEN [facility] Address: [address] [address] Performed By: #### 5 8410-2 #### [facility] [place] [id number] STATES OF [facility] MCH (RBC) [Entitic mass] 29.7 pg Normal 26.0-34.0 [facility] Comment on above: Order Comment: Speci men Type: BLOOD SPECIMEN [facility] Address: [address] [address] Performed By: #### 5 8410-2 #### [facility] [place] [id number] [place] [address] OF [facility] MCHC (RBC) [Mass/Vol] 33.3 g/dL Normal 30.5-36.0 [facility] Comment on above: Order Comment: Speci men Type: BLOOD SPECIMEN [facility] Address: [address] [place] [address] Performed By: #### 5 8410-2 #### [facility] [place] [id number] [place] [address] [place] MCV (RBC) [Entitic vol] 89.2 fL Normal 80.0-100.0 [facility] Comment on above: Order Comment: Speci men Type: BLOOD SPECIMEN [facility] Address: [address] [place] [address] Performed By: #### 5 8410-2 #### [facility] [place] [id number] [address] [place] [address] [place] Nucleated RBC (Bld) [#/Vol] 10*3/uL Normal <0.01 [facility] Comment on above: Order Comment: Speci men Type: BLOOD SPECIMEN [facility] Address: [address] [place], [place] [address] Performed By: #### 5 8410-2 #### [facility] [place] [id number] [place] [address] [place] Platelet mean volume (Bld) [Entitic vol] 12.0 fL Normal 9.0-12.7 [facility] Comment on above: Order Comment: Speci men Type: BLOOD SPECIMEN [facility] Address: [address] [address] Performed By: #### 5 8410-2 #### [facility] CLIA [id number] [place], [place] [id number] [place] [address] OF [facility] Platelets (Bld) [#/Vol] 184 10*3/uL Normal 150-400 [facility] Comment on above: Order Comment: Speci men Type: BLOOD SPECIMEN [facility] Address: [address] [address] Performed By: #### 5 8410-2 #### [facility] CLIA [id number] [place] RBC (Bld) [#/Vol] 3.23 10*6/uL Low 4.20-6.00 [facility] Comment on above: Order Comment: Speci men Type: BLOOD SPECIMEN [facility] Address: [address] [place] [address] Performed By: #### 5 8410-2 #### [facility] [place] [id number] [address] OF [facility] WBC (Bld) [#/Vol] 9.77 10*3/uL Normal 3.70-11.00 [facility] Comment on above: Order Comment: Speci men Type: BLOOD SPECIMEN [facility] Address: [address] [place] [address] Performed By: #### 5 8410-2 #### [facility] CLIA [id number] [address] [id number] [facility] CNDSon 07-18-2022 CNDS HNO ID: [id number] Author: Kimber See APRN.MANDARIN TEACHER Service: Hospital Medicine Author Type: Nurse Practitioner Type: Discharge Summary Filed: 07/18/2022 4:13 PM Note Text: Attestation signed by Sheldon De Leon MD at 07/18/2022 6:27 PM [facility] STAFF: TEACHING PHYSICIAN NOTE OF PERSONAL INVOLVEMENT IN CARE I have reviewed the information obtained and documented by the Advanced Practice Provider below. I have personally participated in the laureano components and have discussed the case and management of the patient's care. Stable to discharge Sheldon De Leon MD Beeper Number: [id number] Date: July 18, 2022 Time: 6:27 PM DISCHARGE SUMMARY PATIENT NAME: Simon Lott ADMISSION DATE: 07/17/2022 DISCHARGE DATE: 07/18/2022 ATTENDING PHYSICIAN: Sheldon De Leon MD Code Status: Not on file PCP: Maey Murray DO Highest Readmission Risk Score: 20 [...] in 3 days to be done at [facility] IMAGING FOLLOW-UP: Not applicable LABS AND PROCEDURES [...] CONSULTS DURING HOSPITALIZATION: Treatment Team: Attending Provider: Sheldno De Leon MD Attending: Raimundo Montes MD Primary Service: Kimber See APRN.MANDARIN TEACHER Orders Placed This Encounter Smoking Cessation Education CONSULT TO [facility] NE[facility]ROLOGY (AV,FV,MM,VIRTUAL AT [place]) PATIENT CONDITION AT DISCHARGE: Stable ADVANCE CARE PLANNING DISCUSSION (if applicable): N/A DISCHARGE DISPOSITION: [facility] Facility Discharge Physical Exam: VITAL SIGNS: BP [...] Lungs c (more content not included)... Normal [facility] CONSULTon 07-18-2022 CONSULT HNO ID: [id number] Author: Master Bella MD Service: Nephrology Author Type: Physician Type: Consults Filed: 07/18/2022 2:28 PM Note Text: [facility] NEPHROLOGY AND HYPERTENSION [facility] SERVICE DATE: July [...] follows with Kiko Corbett of urology in [facility] who manages his stone disease and left ureteral obstruction and PCN and was referred to [place] due to malfunction of his PCN. He [...] with Dr. Johan Taylor of nephrology in [facility]. Patient confirms this, though he cannot recall the content of any of their discussions. 'I know my kidneys are weak. Dr. Taylor takes care of me.'. Outside labs reviewed. Serum creatinine April 2022 4.7 mg/dl. January 2022 4 mg/dl. Denies current complaints and wants to leave. Med lists reviewed. Discrepancy between [facility], [facility], his nursing facility noted. Patient unable to [...] mouth.Disp: Rf (more content not included)... Normal [facility] Comprehensive metabolic 2000 panelon 07-18-2022 Albumin [Mass/Vol] 3.2 g/dL Low 3.9-4.9 [facility] Comment on above: Order Comment: Speci men Type: BLOOD SPECIMENOrdering Facility: [facility] Address: [address] [address] Performed By: #### 2 4323-8 ####[facility] LABORATORYCLIA [id number] [place] [address] [place] ALP [Catalytic activity/Vol] 120 U/L High 38-113 [facility] Comment on above: Order Comment: Speci men Type: BLOOD SPECIMENOrdering Facility: [facility] Address: [address] [address] Performed By: #### 2 4323-8 ####[facility] LABORATORYCLIA [id number] [address] [place] ALT [Catalytic activity/Vol] 10 U/L Normal 10-54 [facility] Comment on above: Order Comment: Speci men Type: BLOOD SPECIMENOrdering Facility: [facility] Address: [address] [address] Performed By: #### 2 4323-8 ####[facility] LABORATORYCLIA [id number] [place] [address] [place] Anion gap [Moles/Vol] 11 mmol/L Normal 9-18 [facility] Comment on above: Order Comment: Speci men Type: BLOOD SPECIMENOrdering Facility: [facility] Address: [address] [address] Performed By: #### 2 4323-8 ####[facility] LABORATORYCLIA [id number] [address] [place] AST [Catalytic activity/Vol] 20 U/L Normal 14-40 [facility] Comment on above: Order Comment: Speci men Type: BLOOD SPECIMENOrdering Facility: [facility] Address: [address] [address] Performed By: #### 2 4323-8 ####[facility] LABORATORYCLIA [id number] [place] [address] [place] Bilirubin [Mass/Vol] 0.2 mg/dL Normal 0.2-1.3 [facility] Comment on above: Order Comment: Speci men Type: BLOOD SPECIMENOrdering Facility: [facility] Address: [address] [address] Performed By: #### 2 4323-8 ####[facility] LABORATORYCLIA [id number] [place] [address] [place] Calcium [Mass/Vol] 8.6 mg/dL Normal 8.5-10.2 [facility] Comment on above: Order Comment: Speci men Type: BLOOD SPECIMENOrdering Facility: [facility] Address: [address] [address] Performed By: #### 2 4323-8 ####[facility] LABORATORYCLIA [id number] [place] [address] [place] Chloride [Moles/Vol] 107 mmol/L High 97-105 [facility] Comment on above: Order Comment: Speci men Type: BLOOD SPECIMENOrdering Facility: [facility] Address: [address] [address] Performed By: #### 2 4323-8 ####[facility]ORATORYCLIA [id number] [place] [address] [place] CO2 [Moles/Vol] 21 mmol/L Low 22-30 [facility] Comment on above: Order Comment: Speci men Type: BLOOD SPECIMENOrdering Facility: [facility] Address: [address] [place] [address] Performed By: #### 2 4323-8 ####[facility] CAMPUSIA [id number] [place] [address] [place] Creatinine [Mass/Vol] 4.66 mg/dL High 0.73-1.22 [facility] Comment on above: Order Comment: Speci men Type: BLOOD SPECIMENOrdering Facility: [facility] Address: [address] [place] [address] Performed By: #### 2 4323-8 ####[facility] CAMPUSIA [id number] [place] [address] [place] ESTIMATED GLOMERULAR FILTRATION RATE 13 mL/min/1.73m??? Low >=60 [facility] Comment on above: Order Comment: Speci men Type: BLOOD SPECIMENOrdering Facility: [facility] Address: [address] [place] [address] Result Comment: Samantha mated Glomerular Filtration Rate [...] actual GFR. Performed By: #### 2 4323-8 ####[facility] LABORATORYIA [id number] [place] [address] [place] Glucose [Mass/Vol] 117 mg/dL High 74-99 [facility] Comment on above: Order Comment: Sarahi men Type: BLOOD SPECIMENOrdering Facility: [facility] Address: [address] [place] [address] Result Comment: The [place] Diabetes Association (ADA) provides guidance for cutoff [...] Standards of Medical Care in Diabetes 2016, [place] [employer] Association. Diabetes Care. 2016.39(Suppl 1). Performed By: #### 2 4323-8 ####[facility] CAMPUSIA [id number] [place] [address] [place] Potassium [Moles/Vol] 5.3 mmol/L High 3.7-5.1 [facility] Comment on above: Order Comment: Carlos avendano Type: BLOOD SPECIMENOrdering Facility: [facility] Address: [address] [place] [address] Performed By: #### 2 4323-8 ####[facility] CAMPUSIA [id number] [place] [address] [place] Protein [Mass/Vol] 7.8 g/dL Normal 6.3-8.0 [facility] Comment on above: Order Comment: Sarahi men Type: BLOOD SPECIMENOrdering Facility: [facility] Address: [address] [place] [address] Performed By: #### 2 4323-8 ####[facility] LABORATORYIA [id number] [place] [address] [place] Sodium [Moles/Vol] 139 mmol/L Normal 136-144 [facility] Comment on above: Order Comment: Speci men Type: BLOOD SPECIMENOrdering Facility: [facility] Address: [address] [place] [address] Performed By: #### 2 4323-8 ####[facility] LABORATORYCLIA [id number] [place] [address] [place] Urea nitrogen [Mass/Vol] 73 mg/dL High 9-24 [facility] Comment on above: Order Comment: Speci men Type: BLOOD SPECIMENOrdering Facility: [facility] Address: [address] [place] [address] Performed By: #### 2 4323-8 ####[facility] LABORATORYCLIA [id number] [place] [address] [place] Activated partial thrombopla stin time (aPTT) in platelet poor plasma by coagulation aOrdered By: Pedro Drake on 07-17-2022 aPTT Coag (PPP) [Time] 30.9 s 25.1-36.5 [facility] Alanine aminotransferase [En zymatic activity/volume] in Serum or PlasmaOrdered By: Pedro Drake on 07-17-2022 ALT [Catalytic activity/Vol] 12 U/L 7-52 [facility] Albumin [Mass/volume] in Ser um or Plasma by Bromocresol green (BCG) dye binding methoOrdered By: Pedro Drake on 07-17-2022 Albumin BCG dye [Mass/Vol] 3.3 g/dL 3.5-5.7 [facility] Alkaline phosphatase [Enzyma tic activity/volume] in Serum or PlasmaOrdered By: Pedro Drake on 07-17-2022 ALP [Catalytic activity/Vol] 100 U/L 34-104 [facility] Anisocytosis LM Ql (Bld)Orde red By: Pedro Drake on 07-17-2022 Anisocytosis Ql (Bld) Marked [facility] Aspartate aminotransferase [ Enzymatic activity/volume] in Serum or PlasmaOrdered By: Pedro Drake on 07-17-2022 AST [Catalytic activity/Vol] 18 U/L 13-39 [facility] Automated erythrocytes count in urine sediment (number/area)Ordered By: Pedro Vidal on 07-17-2022 RBC Auto (Urine sed) [#/Area] 0-1 [HPF] 0-4 [facility] Automated leukocytes count i n urine sediment (number/area)Ordered By: Pedro Vidal on 07-17-2022 WBC Auto (Urine sed) [#/Area] 0-1 [HPF] 0-4 [facility] Automated urine color determ inationOrdered By: Pedro Drake on 07-17-2022 Color (U) Yellow Yellow [facility] Comment on above: Order Comment: Name Collection Type:: Clean-Voided Midstream Performed By: #### A DDONUAPLUS ####[facility] [id number] [place] [address] [facility] BRIEF OP NOTon 07-17-2022 BRIEF OP NOT HNO ID: [id number] Author: Riya Arambula MD Service: Radiology Author Type: Physician Type: Brief Op Note Filed: 07/17/2022 6:17 PM Note Text: RADIOLOGY BRIEF PROCEDURE NOTE LOG ID: [id number] Surgery/Procedure Date: 07/17/2022 Incision/Procedure Start Time: 5:55 PM Incision Close/Procedure End Time: 6:06 PM Informed Consent obtained under separate note. ATTENDING RADIOLOGIST: Interventional: Dr. Riya Arambula PRESCHOOL ADVISER: None PRE-PROCEDURAL DIAGNOSIS: Left ureteral occlusion, blood clots in nephrostomy tube ANESTHESIA: None PROCEDURE: Initial nephrostogram demonstrated that the [place] loop of the tube was slightly retracted into a calyx and the collecting system was filled with thrombus. The existing 10 Malian catheter was removed over a wire. No active bleeding was encountered. A larger 12 Malian catheter was placed with the [place] loop positioned in the renal pelvis. As much residual thrombus was aspirated as possible. Again, no acute bleeding was demonstrated. POST-PROCEDURAL DIAGNOSIS: Same COMPLICATIONS: None ESTIMATED BLOOD LOSS: Minimal INDWELLING DEVICES: [employer] 12 Malian nephrostomy catheter. SPECIMENS: None DISPOSITION: Patient hemodynamically [...] 17, 2022 TIME: 6:10 PM CONTACT #: [phone] [facility] Bacterial blood cultureOrder ed By: Pedro Drake on 07-17-2022 Bacteria identified Cx Nom (Bld) NO GROWTH 5 DAYS [facility] Basophils Auto (Bld) [#/Vol] Ordered By: Pedro Drake on 07-17-2022 Basophils (Bld) [#/Vol] 0.1 10*3/uL 0.0-0.2 [facility] Basophils/100 WBC Auto (Bld) Ordered By: Pedro Drake on 07-17-2022 Basophils/100 WBC (Bld) 0.6 % . F [facility] Bilirubin Test strip Ql (U)O rdered By: Pedro Drake on 07-17-2022 Bilirubin Ql (U) Negative Negative [facility] Bilirubin.total [Mass/volume ] in Serum or PlasmaOrdered By: Pedro Drake on 07-17-2022 Bilirubin [Mass/Vol] 0.3 mg/dL 0.3-1.0 [facility] Blood Cultureon 07-17-2022 Bacteria identified Cx Nom (Bld) NO GROWTH 5 DAYS PERFORMED BY: [address] [place] [id number] PATHOLOGIST SOUND EFFECTS PERSON CHRISTO PINO M.D. [facility] Comment on above: Performed By: #### C UBLD, PT, CMP, PTT, SCAN CBC ####[address] [address] [facility] Bacteria identified Cx Nom (Bld) NO GROWTH 5 DAYS PERFORMED BY: [facility] [address] [facility] [address] [facility]ITALJean[facility] [place] [id number] PATHOLOGIST SOUND EFFECTS PERSON CHRISTO PINO M.D. [facility] Comment on above: Performed By: #### C UBLD, PT, CMP, PTT, SCAN CBC ####[address] [id number] [facility] CBC panel Auto (Bld)on 07-17 Erythrocyte distribution width (RBC) [Ratio] 16.7 % High 11.5-15.0 [facility] Comment on above: Order Comment: Speci men Type: BLOOD SPECIMENOrdering Facility: [facility] Address: [address] [place] [address] Performed By: #### 5 8410-2 ####[facility] LABORATORYCLIA [id number] [address] OF [facility] Hematocrit (Bld) [Volume fraction] 29.3 % Low 39.0-51.0 [facility] Comment on above: Order Comment: Speci men Type: BLOOD SPECIMENOrdering Facility: [facility] Address: [address] [place] [address] Performed By: #### 5 8410-2 ####[facility] LABORATORYIA [id number] [address] [place] Hemoglobin (Bld) [Mass/Vol] 9.6 g/dL Low 13.0-17.0 [facility] Comment on above: Order Comment: Speci men Type: BLOOD SPECIMENOrdering Facility: [facility] Address: [address] [place] [address] Performed By: #### 5 8410-2 ####[facility] LABORATORYIA [id number] [address] [place] MCH (RBC) [Entitic mass] 29.1 pg Normal 26.0-34.0 [facility] Comment on above: Order Comment: Speci men Type: BLOOD SPECIMENOrdering Facility: [facility] Address: [address] [place] [address] Performed By: #### 5 8410-2 ####[facility] LABORATORYIA [id number] [address] [place] MCHC (RBC) [Mass/Vol] 32.8 g/dL Normal 30.5-36.0 [facility] Comment on above: Order Comment: Speci men Type: BLOOD SPECIMENOrdering Facility: [facility] Address: [address] Performed By: #### 5 8410-2 ####[facility] CAMPUSIA [id number] [place] [address] [place] MCV (RBC) [Entitic vol] 88.8 fL Normal 80.0-100.0 [facility] Comment on above: Order Comment: Speci men Type: BLOOD SPECIMENOrdering Facility: [facility] Address: [address] [address] Performed By: #### 5 8410-2 ####[facility]USIA [id number] [place] [address] [place] Nucleated RBC (Bld) [#/Vol] 10*3/uL Normal <0.01 [facility] Comment on above: Order Comment: Speci men Type: BLOOD SPECIMENOrdering Facility: [facility] Address: [address] [address] Performed By: #### 5 8410-2 ####[facility]USIA [id number] [place] [address] [place] Platelet mean volume (Bld) [Entitic vol] 12.1 fL Normal 9.0-12.7 [facility] Comment on above: Order Comment: Speci men Type: BLOOD SPECIMENOrdering Facility: [facility] Address: [address] [address] Performed By: #### 5 8410-2 ####[facility]USIA [id number] [address] [place] Platelets (Bld) [#/Vol] 191 10*3/uL Normal 150-400 [facility] Comment on above: Order Comment: Speci men Type: BLOOD SPECIMENOrdering Facility: [facility] Address: [address] [address] Performed By: #### 5 8410-2 ####[facility] LABORATORYIA [id number] [place] [address] [place] RBC (Bld) [#/Vol] 3.30 10*6/uL Low 4.20-6.00 [facility] Comment on above: Order Comment: Speci men Type: BLOOD SPECIMENOrdering Facility: [facility] Address: [place] [address] Performed By: #### 5 8410-2 ####[facility] LABORATORYCLIA [id number] [place] [address] [place] WBC (Bld) [#/Vol] 11.37 10*3/uL High 3.70-11.00 [facility] Comment on above: Order Comment: Speci men Type: BLOOD SPECIMENOrdering Facility: [facility] Address: [address] [facility] [place] [address] Performed By: #### 5 8410-2 ####[facility] LABORATORYCLIA [id number] [place] [id number] [facility] CNPMckenzie 07-17-2022 CNPN Telephone (AVPRAD) SIMON LOTT ([id number]) 1950 M Date Time Provider Department 07/17/22 ARDEN STOCKTON During your visit today, we recorded the following information about you: Arden Stockton MD 07/17/2022 3:58 AM Signed Presented to [facility] from SNF. Has nephrostomy tube. Cr 4.5 stable from two weeks ago. Renal pelvis hemorrhage on CT. ED tried to flush nephrostomy tube but were not successful. They already spoke with IR who recommended admissions with IR consult. No planned intervention as of now. 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 From [facility]. Presenting wound information: Location: Right heel and [...] cushion, an (more content not included)... Normal [facility] COVID-19 Antigenon 3 COVID-19 Antigen Normal [facility] Comment on above: Performed By: #### S BRENTON COVID-19 LEENA ####[facility] [id number] [place] [address] [facility] COVID-19 SOFIAOrdered By: Adalid Márquez on 07-17-2022 SARS-CoV+SARS-CoV-2 (COVID-19) Ag IA.rapid Ql (Resp) Negative Negative [facility] Comment on above: This is a duplicate Leena SARS Antigen (KATHLEEN) result to be used for statistical tracking purpose only. CT abdomen pelvis wo conon 0 07-17-2022 CT abdomen pelvis wo con Normal [facility] Calcium [Mass/volume] in Ser um or PlasmaOrdered By: Pedro Drake on 07-17-2022 Calcium [Mass/Vol] 7.9 mg/dL 8.6-10.3 [facility] Carbon dioxide, total [Moles /volume] in Serum or PlasmaOrdered By: Pedro Drake on 07-17-2022 CO2 [Moles/Vol] 20.2 mmol/L 21.0-31.0 [facility] Chloride [Moles/volume] in S leti or PlasmaOrdered By: Pedro Drake on 07-17-2022 Chloride [Moles/Vol] 107 mmol/L 98-107 [facility] Comprehensive Metabolic Pane fidel 07-17-2022 Albumin [Mass/Vol] 3.3 g/dL Low 3.5-5.7 [facility] Comment on above: Performed By: #### C UBLD, PT, CMP, PTT, SCAN CBC ####[address] [address] [place] [id number] [facility] Albumin/Globulin [Mass ratio] 0.7 {ratio} Normal [facility] Comment on above: Performed By: #### C UBLD, PT, CMP, PTT, SCAN CBC ####[address] [place] [address] [facility] ALP [Catalytic activity/Vol] 100 U/L Normal 34-104 [facility] Comment on above: Performed By: #### C UBLD, PT, CMP, PTT, SCAN CBC ####[facility] [place] [address] [facility] ALT [Catalytic activity/Vol] 12 U/L Normal 7-52 [facility] Comment on above: Performed By: #### C UBLD, PT, CMP, PTT, SCAN CBC ####[facility] [place] [address] [facility] Anion gap [Moles/Vol] 12.4 mmol/L Normal 6.0-15.0 [facility] Comment on above: Performed By: #### C UBLD, PT, CMP, PTT, SCAN CBC ####[place] [id number] [facility] AST [Catalytic activity/Vol] 18 U/L Normal 13-39 [facility] Comment on above: Performed By: #### C UBLD, PT, CMP, PTT, SCAN CBC ####[place] [id number] [facility] Bilirubin [Mass/Vol] 0.3 mg/dL Normal 0.3-1.0 [facility] Comment on above: Performed By: #### C UBLD, PT, CMP, PTT, SCAN CBC ####[address] Calcium [Mass/Vol] 7.9 mg/dL Low 8.6-10.3 [facility] Comment on above: Performed By: #### C UBLD, PT, CMP, PTT, SCAN CBC ####[place] [id number] [facility] Chloride [Moles/Vol] 107 mmol/L Normal 98-107 [facility] Comment on above: Performed By: #### C UBLD, PT, CMP, PTT, SCAN CBC ####[address] CO2 [Moles/Vol] 20.2 mmol/L Low 21.0-31.0 [facility] Comment on above: Performed By: #### C UBLD, PT, CMP, PTT, SCAN CBC ####[place] [id number] [facility] Creatinine [Mass/Vol] 4.53 mg/dL High 0.70-1.30 [facility] Comment on above: Performed By: #### C UBLD, PT, CMP, PTT, SCAN CBC ####[place] [id number] [facility] Creatinine Clr Calc Pharmacy 19.25 Normal [facility] Comment on above: Result Comment: PERF ORMED BY:[address] [place], [place] [id number] MEDICAL DIRECTORCHRISTO PINO M.D. Performed By: #### C UBLD, PT, CMP, PTT, SCAN CBC ####[address] [address] [place] [id number] [facility] GFR/1.73 sq M.predicted MDRD (S/P/Bld) [Vol rate/Area] 13.049 mL/min/{1.73_m2} Normal [facility] Comment on above: Performed By: #### C UBLD, PT, CMP, PTT, SCAN CBC ####[address] [place] [address] [facility] Globulin (S) [Mass/Vol] 4.8 g/dL Normal [facility] Comment on above: Performed By: #### C UBLD, PT, CMP, PTT, SCAN CBC ####[place] [address] Glucose [Mass/Vol] 115 mg/dL High 70-100 [facility] Comment on above: Result Comment: [facility] Glucose Reference Range is dependent on time and content of last meal. Glucose of more than 200 mg/dL in a nonstressed, ambulatory subject supports the diagnosis of Diabetes Mellitus. ADA recommended reference range Performed By: #### C UBLD, PT, CMP, PTT, SCAN CBC ####[address] [address] [place] [id number] [facility] Potassium [Moles/Vol] 4.6 mmol/L Normal 3.5-5.1 [facility] Comment on above: Performed By: #### C UBLD, PT, CMP, PTT, SCAN CBC ####[address] [place] [address] [facility] Protein [Mass/Vol] 8.1 g/dL Normal 6.4-8.9 [facility] Comment on above: Performed By: #### C UBLD, PT, CMP, PTT, SCAN CBC ####[place] [address] [place] [id number] [facility] Sodium [Moles/Vol] 135 mmol/L Low 136-145 [facility] Comment on above: Performed By: #### C UBLD, PT, CMP, PTT, SCAN CBC ####[facility] [id number] [place] [address] [facility] Urea nitrogen [Mass/Vol] 71 mg/dL High 7-25 [facility] Comment on above: Performed By: #### C UBLD, PT, CMP, PTT, SCAN CBC ####[facility] [address] [place] [address] [facility] Comprehensive metabolic 2000 panelon 07-17-2022 Albumin [Mass/Vol] 3.6 g/dL Low 3.9-4.9 [facility] Comment on above: Order Comment: Speci men Type: BLOOD SPECIMENOrdering Facility: [facility] Address: [address] [address] Performed By: #### 2 4323-8 ####[facility] LABORATORYCLIA [id number] [place] [address] [place] ALP [Catalytic activity/Vol] 125 U/L High 38-113 [facility] Comment on above: Order Comment: Speci men Type: BLOOD SPECIMENOrdering Facility: [facility] Address: [address] [address] Performed By: #### 2 4323-8 ####[facility] LABORATORYCLIA [id number] [place], [place] [address] [place] [address] [place] ALT [Catalytic activity/Vol] 12 U/L Normal 10-54 [facility] Comment on above: Order Comment: Speci men Type: BLOOD SPECIMENOrdering Facility: [facility] Address: [address] [address] Performed By: #### 2 4323-8 ####[facility]ATORYCLIA [id number] [address] [place] Anion gap [Moles/Vol] 9 mmol/L Normal 9-18 [facility] Comment on above: Order Comment: Speci men Type: BLOOD SPECIMENOrdering Facility: [facility] Address: [address] [address] Performed By: #### 2 4323-8 ####[facility] LABORATORYIA [id number] [place] [address] [place] AST [Catalytic activity/Vol] 19 U/L Normal 14-40 [facility] Comment on above: Order Comment: Speci men Type: BLOOD SPECIMENOrdering Facility: [facility] Address: [address] [place] [address] Performed By: #### 2 4323-8 ####[facility] CAMPUSIA [id number] [place] [address] [place] Bilirubin [Mass/Vol] 0.2 mg/dL Normal 0.2-1.3 [facility] Comment on above: Order Comment: Speci men Type: BLOOD SPECIMENOrdering Facility: [facility] Address: [address] [place] [address] Performed By: #### 2 4323-8 ####[facility]USIA [id number] [place] [address] [place] Calcium [Mass/Vol] 8.7 mg/dL Normal 8.5-10.2 [facility] Comment on above: Order Comment: Speci men Type: BLOOD SPECIMENOrdering Facility: [facility] Address: [address] [place] [address] Performed By: #### 2 4323-8 ####[facility] CAMPUSIA [id number] [place] [address] [place] Chloride [Moles/Vol] 106 mmol/L High 97-105 [facility] Comment on above: Order Comment: Speci men Type: BLOOD SPECIMENOrdering Facility: [facility] Address: [address] [place] [address] Performed By: #### 2 4323-8 ####[facility]ORATORYIA [id number] [place] [address] [place] CO2 [Moles/Vol] 22 mmol/L Normal 22-30 [facility] Comment on above: Order Comment: Speci men Type: BLOOD SPECIMENOrdering Facility: [facility] Address: [address] [id number] Performed By: #### 2 4323-8 ####[facility] LABORATORYCLIA [id number] [place] [address] [place] Creatinine [Mass/Vol] 4.48 mg/dL High 0.73-1.22 [facility] Comment on above: Order Comment: Speci men Type: BLOOD SPECIMENOrdering Facility: [facility] Address: [address] Performed By: #### 2 4323-8 ####[facility] LABORATORYCLIA [id number] [place] [address] [place] ESTIMATED GLOMERULAR FILTRATION RATE 13 mL/min/1.73m??? Low >=60 [facility] Comment on above: Order Comment: Carlos avendano Type: BLOOD SPECIMENOrdering Facility: [facility] Address: [address] [address] Result Comment: Samantha mated Glomerular Filtration Rate [...] actual GFR. Performed By: #### 2 4323-8 ####[facility] LABORATORYCLIA [id number] [place] [address] [place] Glucose [Mass/Vol] 117 mg/dL High 74-99 [facility] Comment on above: Order Comment: Sarahi [facility] Type: BLOOD SPECIMENOrdering Facility: [facility] Address: [address] Result Comment: The [place] Diabetes Association (ADA) provides guidance for cutoff [...] Standards of Medical Care in Diabetes 2016, [place] [employer]. Diabetes Care. 2016.39(Suppl 1). Performed By: #### 2 4323-8 ####[facility] LABORATORYCLIA [id number] [place] [address] [place] Potassium [Moles/Vol] 5.3 mmol/L High 3.7-5.1 [facility] Comment on above: Order Comment: Speci men Type: BLOOD SPECIMENOrdering Facility: [facility] Address: [address] [address] Performed By: #### 2 4323-8 ####[facility]USIA [id number] [place] [address] [place] Protein [Mass/Vol] 8.1 g/dL High 6.3-8.0 [facility] Comment on above: Order Comment: Speci men Type: BLOOD SPECIMENOrdering Facility: [facility] Address: [address] [address] Performed By: #### 2 4323-8 ####[facility] CAMPUSIA [id number] [place] [id number] [place] Sodium [Moles/Vol] 137 mmol/L Normal 136-144 [facility] Comment on above: Order Comment: Speci men Type: BLOOD SPECIMENOrdering Facility: [facility] Address: [address] [address] Performed By: #### 2 4323-8 ####[facility] LAB[facility]ATORYIA [id number] [place] [id number] [place] Urea nitrogen [Mass/Vol] 70 mg/dL High 9-24 [facility] Comment on above: Order Comment: Speci men Type: BLOOD SPECIMENOrdering Facility: [facility] Address: [address] [address] Performed By: #### 2 4323-8 ####[facility] LABORATORYCLIA [id number] [facility] [place] [address] [place] Creatinine [Mass/volume] in Serum or PlasmaOrdered By: Pedro Drake on 07-17-2022 Creatinine [Mass/Vol] 4.53 mg/dL 0.70-1.30 [facility] Dipstick and Microscopicon 0 07-17-2022 Appearance (U) Clear Normal Clear [facility] Comment on above: Order Comment: Name Collection Type:: Clean-Voided Midstream Performed By: #### A DDONUAPLUS ####[address] [place] [address] [facility] Bacteria,Urine None Seen Normal None Seen [facility] Comment on above: Order Comment: Name Collection Type:: Clean-Voided Midstream Performed By: #### A DDONUAPLUS ####[address] [address] [facility] Bilirubin,Urine Negative Normal Negative [facility] Comment on above: Order Comment: Name Collection Type:: Clean-Voided Midstream Performed By: #### A DDONUAPLUS ####[address] [address] [facility] Glucose Ql (U) Normal Normal Normal [facility] Comment on above: Order Comment: Name Collection Type:: Clean-Voided Midstream Performed By: #### A DDONUAPLUS ####[address] [address] [place] Hyaline Casts,Urine None Seen Normal 0-8 [facility] Comment on above: Order Comment: Name Collection Type:: Clean-Voided Midstream Result Comment: PERF ORMED BY:[address] [place], [place] [phone] MEDICAL DIRECTORCHRISTO PINO M.D. Performed By: #### A DDONUAPLUS ####[facility] [address] [place] [address] [facility] Ketones Ql (U) Negative Normal Negative [facility] Comment on above: Order Comment: Name Collection Type:: Clean-Voided Midstream Performed By: #### A DDONUAPLUS ####[address] [address] [facility] Leukocyte esterase Test strip Ql (U) Negative Normal Negative [facility] Comment on above: Order Comment: Name Collection Type:: Clean-Voided Midstream Performed By: #### A DDONUAPLUS ####[address] [address] [facility] Nitrite,Urine Negative Normal Negative [facility] Comment on above: Order Comment: Name Collection Type:: Clean-Voided Midstream Performed By: #### A DDONUAPLUS ####[address] [address] [facility] Occult Blood,Urine Negative Normal Negative [facility] Comment on above: Order Comment: Name Collection Type:: Clean-Voided Midstream Result Comment: PERF ORMED BY:[address] [place], [place] [phone] MEDICAL DIRECTORCHRISTO PINO M.D. Performed By: #### A DDONUAPLUS ####[address] [address] [facility] RBC LM.HPF (Urine sed) [#/Area] 0 /[HPF] Normal 0-4 [facility] Comment on above: Order Comment: Name Collection Type:: Clean-Voided Midstream Performed By: #### A DDONUAPLUS ####[address] [address] [facility] Specificy [place],Urine 1.012 Normal 1.001-1.030 [facility] Comment on above: Order Comment: Name Collection Type:: Clean-Voided Midstream Performed By: #### A DDONUAPLUS ####[address] [id number] [facility] Squamous Epithelial Cell,Urine None Seen Normal 0-2 [facility] Comment on above: Order Comment: Name Collection Type:: Clean-Voided Midstream Performed By: #### A DDONUAPLUS ####[address] [address] [facility] Urobilinogen,Urine Normal Normal Normal [facility] Comment on above: Order Comment: Name Collection Type:: Clean-Voided Midstream Performed By: #### A DDONUAPLUS ####[facility] [id number] WBC LM.HPF (Urine sed) [#/Area] 0 /[HPF] Normal 0-4 [facility] Comment on above: Order Comment: Name Collection Type:: Clean-Voided Midstream Performed By: #### A DDONUAPLUS ####[facility] [id number] Eosinophils Auto (Bld) [#/Vo l]Ordered By: Pedro Drake on 07-17-2022 Eosinophils (Bld) [#/Vol] 0.4 10*3/uL 0.0-0.45 [facility] Eosinophils/100 WBC Auto (Bl d)Ordered By: Pedro Drake on 07-17-2022 Eosinophils/100 WBC (Bld) 3.5 % . [facility] Erythrocyte distribution wid th Auto (RBC) [Ratio]Ordered By: Pedro Drake on 07-17-2022 Erythrocyte distribution width (RBC) [Ratio] 16.4 % 12.0-14.8 [facility] Globulin Calc (S) [Mass/Vol] Ordered By: Pedro Drake on 07-17-2022 Globulin (S) [Mass/Vol] 4.8 g/dL [facility] Glucose [Mass/volume] in Ser um or PlasmaOrdered By: Pedro Drake on 07-17-2022 Glucose [Mass/Vol] 115 mg/dL 70-100 [facility] Comment on above: ADA recommended refe rence rangeRandom Glucose Reference Range is dependent on time and content of last meal. Glucose of more than 200 mg/dL in a nonstressed, ambulatory subject supports the diagnosis of Diabetes Mellitus. HISTORY PHYSICALon HISTORY PHYSICAL HNO ID: [id number] Author: Raimundo Montes MD Service: Hospital Medicine Author Type: Physician Type: HANDP Filed: 07/17/2022 1:58 PM Note Text: DEPARTMENT OF HOSPITAL MEDICINE HISTORY AND PHYSICAL EXAM SERVICE DATE: 07/17/2022 Code Status: Not on file SERVICE TIME: 1:49 PM Primary Care Physician: Maye Murray, DO NIGHT AND WEEKEND COVERAGE: [place] COVERAGE: Days: [phone], please contact via [employer]sage Nights: [phone] - 3rd floor: please page CC Hospitalist night cover [phone] - 4th floor: please page [facility] Hospitalist night cover [phone] - 5th floor: please page [facility] Hospitalist night cover [phone] Subjective CHIEF COMPLAINT: hematuria an nephrostomy malfunction HPI: This is a 72 year old male who presents with hematuria in left nephrostomy tube and malfunction due to clots. Transferred from [facility].transferred to [facility] for IR evaluation Had the nephrostomy tube [...] or vision (more content not included)... Normal [facility] Hematocrit Auto (Bld) [Volum e fraction]Ordered By: Pedro Drake on 07-17-2022 Hematocrit (Bld) [Volume fraction] 29.7 % 38.8-50.0 [facility] Hemoglobin [Mass/volume] in BloodOrdered By: Pedro Drake on 07-17-2022 Hemoglobin (Bld) [Mass/Vol] 9.4 g/dL 13.0-17.0 [facility] Hypochromia LM Ql (Bld)Order ed By: Pedro Drake on 07-17-2022 Hypochromia Ql (Bld) Moderate [facility] IR EXCHANGE NEPH TUBEon 07-06 IR EXCHANGE NEPH TUBE * * *Final Report* * * DATE OF EXAM: Jul 17 2022 6:00PM [facility] 0777 - IR EXCHANGE NEPH TUBE / PROCEDURE REASON: hydronephrosis * * * * Physician Interpretation * * * * PROCEDURE: GENITOURINARY CATHETER EXCHANGE Procedural Personnel Attending physician(s): Riya Arambula M.D. Concession Attendant: None Pre-procedure diagnosis: Left ureteral occlusion Post-procedure diagnosis: Same Indication: Bloody output from left nephrostomy catheter Additional clinical history: This is a 72-year-old gentleman with history of left ureterolithiasis and prior failed cytoscopic left ureteral stenting who had a left nephrostomy catheter placed by IR on 05/06/2022 at the request of his urologist, Dr. Kiko Corbett of [facility]. He returned on 07/01/2022 for an [...] nephrostogram was performed and demonstrated that the [place] loop of the catheter had retracted slightly into a calyx and that the collecting system was filled with thrombus. A wire was placed through the existing 10 Malian tube and it was removed. No active bleeding was observed. A larger 12 Malian catheter was advanced over the wire and the [place] loop was formed in the renal pelvis. [...] 0 Prolene. Pre-existing genitourinary catheter: 10 F [employer] nephrostomy Genitourinary catheter(s) placed: 12 F [employer] nephrostomy External catheter securement: Non-absorbable suture Estimated blood loss (mL): Less than 10 Number and Type of Removed Specimens: 0 Standardized report: SIR_GUCatheterExchange_ v3 Comp (more content not included)... Normal [facility] Iron [Mass/volume] in Serum or PlasmaOrdered By: Clara Chew on 07-17-2022 Iron [Mass/Vol] 60 ug/dL 50-212 [facility] Iron and TIBC Profileon 07-06 % Iron Saturation 19.0 % Low 20-50 [facility] Comment on above: Performed By: #### F E and TIBC ####[facility] [id number] [place] [address] [facility] Iron [Mass/Vol] 60 ug/dL Normal 50-212 [facility] Comment on above: Performed By: #### F E and TIBC ####[facility] [address] [place] [address] [facility] Total Iron Binding Capacity 315 ug/dL Normal 255-450 [facility] Comment on above: Performed By: #### F E and TIBC ####[facility] [address] [place] [address] [facility] Transferrin [Mass/Vol] 225 mg/dL Normal 203-362 [facility] Comment on above: Result Comment: PERF ORMED BY:[address] [place], [place] [phone] MEDICAL DIRECTORCHRISTO PINO M.D. Performed By: #### F E and TIBC ####[facility] [id number] [place] [address] [facility] Iron binding capacity [Mass/ volume] in Serum or PlasmaOrdered By: Clara Chew on 07-17-2022 Iron binding capacity [Mass/Vol] 315 ug/dL 255-450 [facility] Iron saturation [Mass Fracti on] in Serum or PlasmaOrdered By: Clara Chew on 07-17-2022 Iron saturation [Mass fraction] 19.0 % 20-50 [facility] Ketones Auto test strip (U) [Mass/Vol]Ordered By: Pedro Drake on 07-17-2022 Ketones (U) [Mass/Vol] Negative Negative [facility] Laboratory - CoagulationOrde red By: Pedro Drake on 07-17-2022 PT Coag (PPP) [Time] 12.2 s 9.0-12.9 [facility] Laboratory - UrinalysisOrder ed By: Pedro Drake on 07-17-2022 Hyaline casts LM Ql (Urine sed) None seen [LPF] 0-8 [facility] Leukocytes [#/volume] correc lakesha for nucleated erythrocytes in Blood by Automated counOrdered By: Pedro Drake on 07-17-2022 WBC corrected for nucl RBC Auto (Bld) [#/Vol] 12.7 10*3/uL 4.1-10.5 [facility] Lymphocytes Auto (Bld) [#/Vo l]Ordered By: Pedro Drake on 07-17-2022 Lymphocytes (Bld) [#/Vol] 5.1 10*3/uL 1.00-4.8 [facility] Lymphocytes/100 WBC Auto (Bl d)Ordered By: Pedro Drake on 07-17-2022 Lymphocytes/100 WBC (Bld) 40.4 % . [facility] MCH Auto (RBC) [Entitic mass ]Ordered By: Pedro Drake on 07-17-2022 MCH (RBC) [Entitic mass] 29.6 pg 27.5-35.2 [facility] MCHC Auto (RBC) [Mass/Vol]Or dered By: Pedro Drake on 07-17-2022 MCHC (RBC) [Mass/Vol] 31.8 g/dL 32.5-35.6 [facility] MCV Auto (RBC) [Entitic vol] Ordered By: Pedro Drake on 07-17-2022 MCV (RBC) [Entitic vol] 93.1 fL 83.5-101 [facility] Macrocytes LM Ql (Bld)Ordere d By: Pedro Drake on 07-17-2022 Macrocytes Ql (Bld) Moderate [facility] Monocyte distribution width [Entitic volume] in Blood by AutomatedOrdered By: Pedro Drake on 07-17-2022 Monocyte distribution width Auto (Bld) [Entitic vol] 21.81 % 0.00-20.00 [facility] Comment on above: For adults in ED, MD W > 20.0 may be associated with a higher risk of sepsis during the first 12 hrs of hospital admission Monocytes Auto (Bld) [#/Vol] Ordered By: Pedro Drake on 07-17-2022 Monocytes (Bld) [#/Vol] 1.3 10*3/uL 0.0-0.8 [facility] Monocytes/100 WBC Auto (Bld) Ordered By: Pedro Drake on 07-17-2022 Monocytes/100 WBC (Bld) 10.3 % . [facility] Neutrophils Auto (Bld) [#/Vo l]Ordered By: Pedro Drake on 07-17-2022 Neutrophils (Bld) [#/Vol] 5.7 10*3/uL 1.8-7.7 [facility] Neutrophils/100 WBC Auto (Bl d)Ordered By: Pedro Drake on 07-17-2022 Neutrophils/100 WBC (Bld) 45.2 % . [facility] Nitrite Test strip Ql (U)Ord ered By: Pedro Drake on 07-17-2022 Nitrite Ql (U) Negative Negative [facility] No Panel InformationOrdered By: Pedro Drake on 07-17-2022 None seen [LPF] 0-8 [facility] Estimated GFR (CKD-EPI) 13.049 mL/Min [facility] Pharmacy Creatinine Clearance (Chem 19.25 [facility] 12.2 s 9.0-12.9 [facility] 13.049 mL/Min [facility] 19.25 [facility] No Panel InformationOrdered By: Sonal Márquez on 07-17-2022 SARS Antigen (LFIA) [facility] Nucleated erythrocytes [Pres ence] in Blood by Automated countOrdered By: Pedro Drake on 07-17-2022 Nucleated RBC Auto Ql (Bld) 0.2 /100{WBC} 0-0.5 [facility] PT EDon 07-17-2022 PT ED HNO ID: [id number] Author: Malcom Gallegos RN Service: Nursing Author [...] None Electronically Signed By: Malcom Gallegos Normal [facility] PT panel Coag (PPP)on 2022 INR Coag (PPP) [Relative time] 1.0 {INR} Normal 0.9-1.3 [facility] Comment on above: Order Comment: Carlos avendano Type: BLOOD SPECIMENOrdering Facility: [facility] Address: [address] [place] [address] Result Comment: Renée min K Antagonist (VKA) Therapeutic Range: INR 2 to 3 (Target INR of 2.5) Note: For patients treated with VKA drugs, such as warfarin, the [place] [employer] 2012 Guideline recommends [...] 2.5 to 3.5 (target INR of 3). Juanitatt GH, et al. Chest 2012, 141:7S-47S Robin RA, et al. [facility] 2017, 70: 252-289 Performed By: #### 3 4528-0 ####[facility] LABORATORYCLIA [id number] [place] [address] [place] PT Coag (PPP) [Time] 10.9 s Normal 9.7-13.0 [facility] Comment on above: Order Comment: Carlos avendano Type: BLOOD SPECIMENOrdering Facility: [facility] Address: [address] [place] [address] Performed By: #### 3 4528-0 ####[facility] LABORATORYCLIA [id number] [facility] [place] [address] [place] Partial Thromboplastin Timeo n 07-17-2022 aPTT Coag (Bld) [Time] 30.9 s Normal 25.1-36.5 [facility] Comment on above: Result Comment: PERF ORMED BY:[facility] [place], [place] [phone] MEDICAL DIRECTORCHRISTO PINO M.D. Performed By: #### C UBLD, PT, CMP, PTT, SCAN CBC ####[facility] [address] [address] [facility] Platelet adequacy [Presence] in Blood by Light microscopyOrdered By: Pedro Drake on 07-17-2022 Platelets LM Ql (Bld) Normal Normal [facility] Platelet mean volume Auto (B ld) [Entitic vol]Ordered By: Pedro Drake on 07-17-2022 Platelet mean volume (Bld) [Entitic vol] 10.0 fL 6.6-10.1 [facility] Platelet morphology finding [Identifier] in BloodOrdered By: Pedro Drake on 07-17-2022 Platelet morphology finding Nom (Bld) Normal Normal [facility] Platelet poor plasma interna tional normalized ratio (INR) by coagulation assay (relatOrdered By: Pedro Drake on 07-17-2022 INR Coag (PPP) [Relative time] 1.0 {INR} [facility] Comment on above: INR Therapeutic Rang e [...] 07-17-2022 Platelets (Bld) [#/Vol] 168 10*3/uL 150-450 [facility] Poikilocytosis [Presence] in Blood by Light microscopyOrdered By: Pedro Drake on 07-17-2022 Poikilocytosis LM Ql (Bld) Slight [facility] Potassium [Moles/volume] in Serum or PlasmaOrdered By: Pedro Drake on 07-17-2022 Potassium [Moles/Vol] 4.6 mmol/L 3.5-5.1 [facility] Protein [Mass/volume] in Ser um or PlasmaOrdered By: Pedro Drake on 07-17-2022 Protein [Mass/Vol] 8.1 g/dL 6.4-8.9 [facility] Prothrombin Time INRon 07-17 INR Coag (PPP) [Relative time] 1.0 {INR} Normal [facility] Comment on above: Result Comment: INR Therapeutic [...] C UBLD, PT, CMP, PTT, SCAN CBC ####[address] PT Coag (PPP) [Time] 12.2 s Normal 9.0-12.9 [facility] Comment on above: Performed By: #### C UBLD, PT, CMP, PTT, SCAN CBC ####[address] RBC Auto (Bld) [#/Vol]Ordere d By: Pedro Drake on 07-17-2022 RBC (Bld) [#/Vol] 3.19 10*6/uL 3.90-5.60 [facility] RBC morphologyOrdered By: Angela Drake on 07-17-2022 RBC morphology finding Nom (Bld) N/A [facility] Scan and CBCon 07-17-2022 Anisocytosis Ql (Bld) Marked Normal [facility] Comment on above: Performed By: #### C UBLD, PT, CMP, PTT, SCAN CBC ####[address] Basophils (Bld) [#/Vol] 0.1 10*3/uL Normal 0.0-0.2 [facility] Comment on above: Performed By: #### C UBLD, PT, CMP, PTT, SCAN CBC ####[address] Basophils/100 WBC (Bld) 0.6 % Normal . [facility] Comment on above: Performed By: #### C UBLD, PT, CMP, PTT, SCAN CBC ####[address] Eosinophils (Bld) [#/Vol] 0.4 10*3/uL Normal 0.0-0.45 [facility] Comment on above: Performed By: #### C UBLD, PT, CMP, PTT, SCAN CBC ####[address] Eosinophils/100 WBC (Bld) 3.5 % Normal . [facility] Comment on above: Performed By: #### C UBLD, PT, CMP, PTT, SCAN CBC ####[address] Erythrocyte distribution width (RBC) [Ratio] 16.4 % High 12.0-14.8 [facility] Comment on above: Performed By: #### C UBLD, PT, CMP, PTT, SCAN CBC ####[address] Hematocrit (Bld) [Volume fraction] 29.7 % Low 38.8-50.0 [facility] Comment on above: Performed By: #### C UBLD, PT, CMP, PTT, SCAN CBC ####[address] Hemoglobin (Bld) [Mass/Vol] 9.4 g/dL Low 13.0-17.0 [facility] Comment on above: Performed By: #### C UBLD, PT, CMP, PTT, SCAN CBC ####[address] Hypochromasia Moderate Normal [facility] Comment on above: Performed By: #### C UBLD, PT, CMP, PTT, SCAN CBC ####[address] Lymphocytes (Bld) [#/Vol] 5.1 10*3/uL High 1.00-4.8 [facility] Comment on above: Performed By: #### C UBLD, PT, CMP, PTT, SCAN CBC ####[address] Lymphocytes/100 WBC (Bld) 40.4 % Normal . [facility] Comment on above: Performed By: #### C UBLD, PT, CMP, PTT, SCAN CBC ####[address] Macrocytosis Moderate Normal [facility] Comment on above: Performed By: #### C UBLD, PT, CMP, PTT, SCAN CBC ####[address] MCH (RBC) [Entitic mass] 29.6 pg Normal 27.5-35.2 [facility] Comment on above: Performed By: #### C UBLD, PT, CMP, PTT, SCAN CBC ####[address] MCV (RBC) [Entitic vol] 93.1 fL Normal 83.5-101 [facility] Comment on above: Performed By: #### C UBLD, PT, CMP, PTT, SCAN CBC ####[address] Mean Corpuscular HGB Conc 31.8 g/dL Low 32.5-35.6 [facility] Comment on above: Performed By: #### C UBLD, PT, CMP, PTT, SCAN CBC ####[address] Monocytes (Bld) [#/Vol] 1.3 10*3/uL High 0.0-0.8 [facility] Comment on above: Performed By: #### C UBLD, PT, CMP, PTT, SCAN CBC ####[address] Monocytes/100 WBC (Bld) 21.81 % High 0.00-20.00 [facility] Comment on above: Result Comment: For adults in ED, MDW > 20.0 may be associated with a higher risk of sepsis during the first 12 hrs of hospital admission Performed By: #### C UBLD, PT, CMP, PTT, SCAN CBC ####[address] [address] [facility] Monocytes/100 WBC (Bld) 10.3 % Normal . [facility] Comment on above: Performed By: #### C UBLD, PT, CMP, PTT, SCAN CBC ####[address] [address] [facility] Neutrophils (Bld) [#/Vol] 5.7 10*3/uL Normal 1.8-7.7 [facility] Comment on above: Performed By: #### C UBLD, PT, CMP, PTT, SCAN CBC ####[address] [address] [facility] Neutrophils/100 WBC (Bld) 45.2 % Normal . [facility] Comment on above: Performed By: #### C UBLD, PT, CMP, PTT, SCAN CBC ####[address] [address] [facility] NRBC% 0.2 /100{WBC} Normal 0-0.5 [facility] Comment on above: Performed By: #### C UBLD, PT, CMP, PTT, SCAN CBC ####[address] [address] [facility] Platelet Estimate Normal Normal Normal [facility] Comment on above: Performed By: #### C UBLD, PT, CMP, PTT, SCAN CBC ####[address] [address] [facility] Platelet mean volume (Bld) [Entitic vol] 10.0 fL Normal 6.6-10.1 [facility] Comment on above: Performed By: #### C UBLD, PT, CMP, PTT, SCAN CBC ####[address] [address] [facility] Platelet Morphology Normal Normal Normal [facility] Comment on above: Result Comment: PERF ORMED BY:[address] [place], [place] [phone] MEDICAL DIRECTORCHRISTO PINO M.D. Performed By: #### C UBLD, PT, CMP, PTT, SCAN CBC ####[address] [address] [facility] Platelets (Bld) [#/Vol] 168 10*3/uL Normal 150-450 [facility] Comment on above: Performed By: #### C UBLD, PT, CMP, PTT, SCAN CBC ####[address] [address] [facility] Poikilocytosis Slight Normal [facility] Comment on above: Performed By: #### C UBLD, PT, CMP, PTT, SCAN CBC ####[address] [address] [facility] RBC (Bld) [#/Vol] 3.19 10*6/uL Low 3.90-5.60 [facility] Comment on above: Performed By: #### C UBLD, PT, CMP, PTT, SCAN CBC ####[place] [id number] [facility] Schistocytes Slight Normal [facility] Comment on above: Performed By: #### C UBLD, PT, CMP, PTT, SCAN CBC ####[address] [address] [facility] Target Cells Moderate Normal [facility] Comment on above: Performed By: #### C UBLD, PT, CMP, PTT, SCAN CBC ####[address] [address] [facility] WBC (Bld) [#/Vol] 12.7 10*3/uL High 4.1-10.5 [facility] Comment on above: Performed By: #### C UBLD, PT, CMP, PTT, SCAN CBC ####[address] [address] [facility] Schistocytes [Presence] in B lood by Light microscopyOrdered By: Pedro Drake on 07-17-2022 Schistocytes LM Ql (Bld) Slight [facility] Serum or plasma albumin/glob ulin mass ratioOrdered By: Pedro Drake on 07-17-2022 Albumin/Globulin [Mass ratio] 0.7 {ratio} [facility] Serum or plasma anion gap de terminationOrdered By: Pedro Drake on 07-17-2022 Anion gap [Moles/Vol] 12.4 mmol/L 6.0-15.0 [facility] Sodium [Moles/volume] in Ser um or PlasmaOrdered By: Pedro Drake on 07-17-2022 Sodium [Moles/Vol] 135 mmol/L 136-145 [facility] Leena Ag Negativeon 07-18-19 23 Leena Ag Negative Negative Normal Negative [facility] Comment on above: Result Comment: This is a duplicate Leena SARS Antigen (KATHLEEN) result to be used for statistical tracking purpose only.PERFORMED BY:[facility] [place], [place] [id number] MEDICAL DIRECTORCHRISTO PINO M.D. Performed By: #### S OFSUSAN COVID-19 LEENA ####[facility] [place] [address] [facility] Specific gravity Auto test s trip (U) [Rel density]Ordered By: Pedro Drake on 07-17-2022 Specific gravity (U) [Rel density] 1.012 1.001-1.030 [facility] Squamous epithelial cells de tection in urine sediment by light microscopyOrdered By: Pedro Drake on 07-17-2022 Epithelial cells.squamous LM Ql (Urine sed) None seen [HPF] 0-2 [facility] Target cellsOrdered By: Pedro Drake on 07-17-2022 Target cells LM Ql (Bld) Moderate [facility] Transferrin [Mass/volume] in Serum or PlasmaOrdered By: Clara Chew on 07-17-2022 Transferrin [Mass/Vol] 225 mg/dL 203-362 [facility] Urea nitrogen [Mass/volume] in Serum or PlasmaOrdered By: Pedro Drake on 07-17-2022 Urea nitrogen [Mass/Vol] 71 mg/dL 7-25 [facility] Urine bacteria detection by automated methodOrdered By: Pedro Drake on 07-17-2022 Bacteria Auto Ql (U) None seen None Seen [facility] Urine clarity by refractomet ry automatedOrdered By: Pedro Drake on 07-17-2022 Clarity Refractometry automated (U) Clear Clear [facility] Urine glucose measurement by automated test strip (mass/volume)Ordered By: Pedro Drake on 07-17-2022 Glucose Auto test strip (U) [Mass/Vol] Normal mg/dL Normal [facility] Urine hemoglobin detection b y automated test stripOrdered By: Pedro Drake on 07-17-2022 Hemoglobin Auto test strip Ql (U) Negative Negative [facility] Urine leukocyte esterase det ection by automated test stripOrdered By: Pedro Drake on 07-17-2022 Leukocyte esterase Auto test strip Ql (U) Negative Negative [facility] Urine pH measurement by auto mated test stripOrdered By: Pedro Drake on 07-17-2022 pH (U) 5.5 [pH] 5.0-9.0 [facility] Comment on above: Order Comment: Name Collection Type:: Clean-Voided Midstream Performed By: #### A DDONUAPLUS ####[address] Urine protein measurement by automated test strip (mass/volume)Ordered By: Pedro Drake on 07-17-2022 Protein (U) [Mass/Vol] 100 mg/dL Negative [facility] Comment on above: Order Comment: Name Collection Type:: Clean-Voided Midstream Performed By: #### A DDONUAPLUS ####[facility] [address] [place] [address] Urobilinogen Auto test strip (U) [Mass/Vol]Ordered By: Pedro Drake on 07-17-2022 Urobilinogen (U) [Mass/Vol] Normal mg/dL Normal [facility] WBC Auto (Bld) [#/Vol]Ordere d By: Pedro Drake on 07-17-2022 WBC (Bld) [#/Vol] 12.7 10*3/uL 4.1-10.5 [facility] Alanine aminotransferase [En zymatic activity/volume] in Serum or PlasmaOrdered By: Maye Bunting on 07-04-2022 ALT [Catalytic activity/Vol] 16 U/L 7-52 [facility] Albumin [Mass/volume] in Ser um or Plasma by Bromocresol green (BCG) dye binding methoOrdered By: Maye Bunting on 07-04-2022 Albumin BCG dye [Mass/Vol] 3.8 g/dL 3.5-5.7 [facility] Alkaline phosphatase [Enzyma tic activity/volume] in Serum or PlasmaOrdered By: Maye Bunting on 07-04-2022 ALP [Catalytic activity/Vol] 123 U/L 34-104 [facility] Aspartate aminotransferase [ Enzymatic activity/volume] in Serum or PlasmaOrdered By: Maye Bunting on 07-04-2022 AST [Catalytic activity/Vol] 32 U/L 13-39 [facility] Basophils Auto (Bld) [#/Vol] Ordered By: Maye Bunting on 07-04-2022 Basophils (Bld) [#/Vol] 0.1 10*3/uL 0.0-0.2 [facility] Basophils/100 WBC Auto (Bld) Ordered By: Maye Bunting on 07-04-2022 Basophils/100 WBC (Bld) 0.6 % . [facility] Bilirubin.total [Mass/volume ] in Serum or PlasmaOrdered By: Maye Bunting on 07-04-2022 Bilirubin [Mass/Vol] 0.3 mg/dL 0.3-1.0 [facility] Calcium [Mass/volume] in Ser um or PlasmaOrdered By: Maye Bunting on 07-04-2022 Calcium [Mass/Vol] 8.8 mg/dL 8.6-10.3 [facility] Carbon dioxide, total [Moles /volume] in Serum or PlasmaOrdered By: Maye Bunting on 07-04-2022 CO2 [Moles/Vol] 23.5 mmol/L 21.0-31.0 [facility] Chloride [Moles/volume] in S leti or PlasmaOrdered By: Maye Bunting on 07-04-2022 Chloride [Moles/Vol] 104 mmol/L 98-107 [facility] Complete Blood Count Auto Di ffon 07-04-2022 Basophils (Bld) [#/Vol] 0.1 10*3/uL Normal 0.0-0.2 [facility] Comment on above: Result Comment: PERF ORMED BY:[address] [place], [place] [phone] MEDICAL DIRECTORCHRISTO PINO M.D. Performed By: #### C NETO, CMP ####[place] [id number] [facility] Basophils/100 WBC (Bld) 0.6 % Normal . [facility] Comment on above: Performed By: #### C NETO, CMP ####[address] Eosinophils (Bld) [#/Vol] 0.5 10*3/uL High 0.0-0.45 [facility] Comment on above: Performed By: #### C NETO, CMP ####[address] Eosinophils/100 WBC (Bld) 4.5 % Normal . [facility] Comment on above: Performed By: #### C NETO, CMP ####[place] [id number] [facility] Erythrocyte distribution width (RBC) [Ratio] 16.6 % High 12.0-14.8 [facility] Comment on above: Performed By: #### C NETO, CMP ####[place] [id number] [facility] Hematocrit (Bld) [Volume fraction] 32.7 % Low 38.8-50.0 [facility] Comment on above: Performed By: #### C BC, CMP ####[place] [id number] [facility] Hemoglobin (Bld) [Mass/Vol] 10.4 g/dL Low 13.0-17.0 [facility] Comment on above: Performed By: #### C BC, CMP ####[address] Lymphocytes (Bld) [#/Vol] 4.7 10*3/uL Normal 1.00-4.8 [facility] Comment on above: Performed By: #### C NETO, CMP ####[address] Lymphocytes/100 WBC (Bld) 41.1 % Normal . [facility] Comment on above: Performed By: #### C BC, CMP ####[address] MCH (RBC) [Entitic mass] 30.5 pg Normal 27.5-35.2 [facility] Comment on above: Performed By: #### C NETO, CMP ####[address] MCV (RBC) [Entitic vol] 96.1 fL Normal 83.5-101 [facility] Comment on above: Performed By: #### C NETO, CMP ####[address] Mean Corpuscular HGB Conc 31.8 g/dL Low 32.5-35.6 [facility] Comment on above: Performed By: #### C NETO, CMP ####[address] Monocytes (Bld) [#/Vol] 1.3 10*3/uL High 0.0-0.8 [facility] Comment on above: Performed By: #### C NETO, CMP ####[address] Monocytes/100 WBC (Bld) 11.1 % Normal . [facility] Comment on above: Performed By: #### C NETO, CMP ####[address] Neutrophils (Bld) [#/Vol] 4.9 10*3/uL Normal 1.8-7.7 [facility] Comment on above: Performed By: #### C NETO, CMP ####[address] Neutrophils/100 WBC (Bld) 42.7 % Normal . [facility] Comment on above: Performed By: #### C NETO, CMP ####[place] [id number] [facility] NRBC% 0.3 /100{WBC} Normal 0-0.5 [facility] Comment on above: Performed By: #### C NETO, CMP ####[address] Platelet mean volume (Bld) [Entitic vol] 9.7 fL Normal 6.6-10.1 [facility] Comment on above: Performed By: #### C NETO, CMP ####[address] Platelets (Bld) [#/Vol] 205 10*3/uL Normal 150-450 [facility] Comment on above: Performed By: #### C NETO, CMP ####[address] RBC (Bld) [#/Vol] 3.40 10*6/uL Low 3.90-5.60 [facility] Comment on above: Performed By: #### C NETO, CMP ####[address] WBC (Bld) [#/Vol] 11.4 10*3/uL High 4.1-10.5 [facility] Comment on above: Performed By: #### C BC, CMP ####[place] [id number] [facility] Comprehensive Metabolic Pane fidel 07-04-2022 Albumin [Mass/Vol] 3.8 g/dL Normal 3.5-5.7 [facility] Comment on above: Performed By: #### C BC, CMP ####[place] [id number] [facility] Albumin/Globulin [Mass ratio] 0.8 {ratio} Normal [facility] Comment on above: Performed By: #### C BC, CMP ####[place] [address] [place] [address] [facility] ALP [Catalytic activity/Vol] 123 U/L High 34-104 [facility] Comment on above: Result Comment: PERF ORMED BY:[place] [address] [place], [place] [id number] MEDICAL MOOSE PINO M.D. Performed By: #### C BC, CMP ####[address] [address] [facility] ALT [Catalytic activity/Vol] 16 U/L Normal 7-52 [facility] Comment on above: Performed By: #### C BC, CMP ####[address] [address] [facility] Anion gap [Moles/Vol] Not performed Normal 6.0-15.0 [facility] Comment on above: Performed By: #### C BC, CMP ####[address] [address] [facility] AST [Catalytic activity/Vol] 32 U/L Normal 13-39 [facility] Comment on above: Performed By: #### C BC, CMP ####[address] [address] [facility] Bilirubin [Mass/Vol] 0.3 mg/dL Normal 0.3-1.0 [facility] Comment on above: Performed By: #### C BC, CMP ####[address] [address] [facility] Calcium [Mass/Vol] 8.8 mg/dL Normal 8.6-10.3 [facility] Comment on above: Performed By: #### C BC, CMP ####[address] [address] [facility] Chloride [Moles/Vol] 104 mmol/L Normal 98-107 [facility] Comment on above: Performed By: #### C BC, CMP ####[address] [address] [facility] CO2 [Moles/Vol] 23.5 mmol/L Normal 21.0-31.0 [facility] Comment on above: Performed By: #### C BC, CMP ####[place] [address] [place] [address] [facility] Creatinine [Mass/Vol] 4.52 mg/dL High 0.70-1.30 [facility] Comment on above: Performed By: #### C BC, CMP ####[place] [address] [place] [address] [facility] GFR/1.73 sq M.predicted MDRD (S/P/Bld) [Vol rate/Area] 13.084 mL/min/{1.73_m2} Normal [facility] Comment on above: Performed By: #### C NETO, CMP ####[place] [address] [place] [id number] [facility] Globulin (S) [Mass/Vol] 4.8 g/dL Normal [facility] Comment on above: Performed By: #### C BC, CMP ####[place] [id number] [facility] Glucose [Mass/Vol] 151 mg/dL High 70-100 [facility] Comment on above: Result Comment: [facility] Glucose Reference Range is dependent on time and content of last meal. Glucose of more than 200 mg/dL in a nonstressed, ambulatory subject supports the diagnosis of Diabetes Mellitus. ADA recommended reference range Performed By: #### C BC, CMP ####[place] [id number] [facility] Potassium [Moles/Vol] Not performed Normal 3.5-5.1 [facility] Comment on above: Result Comment: Hemo lysis is present at a level that could interfere with the result. Performed By: #### C BC, CMP ####[place] [id number] [facility] Protein [Mass/Vol] 8.6 g/dL Normal 6.4-8.9 [facility] Comment on above: Performed By: #### C BC, CMP ####[place] [id number] [facility] Sodium [Moles/Vol] 136 mmol/L Normal 136-145 [facility] Comment on above: Performed By: #### C BC, CMP ####[facility] [id number] [place] [id number] [facility] Urea nitrogen [Mass/Vol] 57 mg/dL High 7-25 [facility] Comment on above: Performed By: #### C BC, CMP ####[facility] [address] [place] [id number] [facility] Creatinine [Mass/volume] in Serum or PlasmaOrdered By: Maye Bunting on 07-04-2022 Creatinine [Mass/Vol] 4.52 mg/dL 0.70-1.30 [facility] Eosinophils Auto (Bld) [#/Vo l]Ordered By: Maye Bunting on 07-04-2022 Eosinophils (Bld) [#/Vol] 0.5 10*3/uL 0.0-0.45 [facility] Eosinophils/100 WBC Auto (Bl d)Ordered By: Maye Bunting on 07-04-2022 Eosinophils/100 WBC (Bld) 4.5 % . [facility] Erythrocyte distribution wid th Auto (RBC) [Ratio]Ordered By: Maye Bunting on 07-04-2022 Erythrocyte distribution width (RBC) [Ratio] 16.6 % 12.0-14.8 [facility] Globulin Calc (S) [Mass/Vol] Ordered By: Maye Bunting on 07-04-2022 Globulin (S) [Mass/Vol] 4.8 g/dL [facility] Glucose [Mass/volume] in Ser um or PlasmaOrdered By: Maye Bunting on 07-04-2022 Glucose [Mass/Vol] 151 mg/dL 70-100 [facility] Comment on above: ADA recommended refe rence rangeRandom Glucose Reference Range is dependent on time and content of last meal. Glucose of more than 200 mg/dL in a nonstressed, ambulatory subject supports the diagnosis of Diabetes Mellitus. Hematocrit Auto (Bld) [Volum e fraction]Ordered By: Maye Bunting on 07-04-2022 Hematocrit (Bld) [Volume fraction] 32.7 % 38.8-50.0 [facility] Hemoglobin [Mass/volume] in BloodOrdered By: Maye Bunting on 07-04-2022 Hemoglobin (Bld) [Mass/Vol] 10.4 g/dL 13.0-17.0 [facility] Leukocytes [#/volume] correc lakesha for nucleated erythrocytes in Blood by Automated counOrdered By: Maye Bunting on 07-04-2022 WBC corrected for nucl RBC Auto (Bld) [#/Vol] 11.4 10*3/uL 4.1-10.5 [facility] Lymphocytes Auto (Bld) [#/Vo l]Ordered By: Maye Bunting on 07-04-2022 Lymphocytes (Bld) [#/Vol] 4.7 10*3/uL 1.00-4.8 [facility] Lymphocytes/100 WBC Auto (Bl d)Ordered By: Maye Bunting on 07-04-2022 Lymphocytes/100 WBC (Bld) 41.1 % . [facility] MCH Auto (RBC) [Entitic mass ]Ordered By: Maye Bunting on 07-04-2022 MCH (RBC) [Entitic mass] 30.5 pg 27.5-35.2 [facility] MCHC Auto (RBC) [Mass/Vol]Or dered By: Maye Bunting on 07-04-2022 MCHC (RBC) [Mass/Vol] 31.8 g/dL 32.5-35.6 [facility] MCV Auto (RBC) [Entitic vol] Ordered By: Maye Bunting on 07-04-2022 MCV (RBC) [Entitic vol] 96.1 fL 83.5-101 [facility] Monocytes Auto (Bld) [#/Vol] Ordered By: Maye Bunting on 07-04-2022 Monocytes (Bld) [#/Vol] 1.3 10*3/uL 0.0-0.8 [facility] Monocytes/100 WBC Auto (Bld) Ordered By: Maye Bunting on 07-04-2022 Monocytes/100 WBC (Bld) 11.1 % . [facility] Neutrophils Auto (Bld) [#/Vo l]Ordered By: Maye Bunting on 07-04-2022 Neutrophils (Bld) [#/Vol] 4.9 10*3/uL 1.8-7.7 [facility] Neutrophils/100 WBC Auto (Bl d)Ordered By: Maye Bunting on 07-04-2022 Neutrophils/100 WBC (Bld) 42.7 % . [facility] No Panel InformationOrdered By: Maye Bunting on 07-04-2022 Estimated GFR (CKD-EPI) 13.084 mL/Min [facility] Creatinine Clearance (Chem N/A [facility] 13.084 mL/Min [facility] N/A [facility] Nucleated erythrocytes [Pres ence] in Blood by Automated countOrdered By: Maye Bunting on 07-04-2022 Nucleated RBC Auto Ql (Bld) 0.3 /100{WBC} 0-0.5 [facility] Platelet mean volume Auto (B ld) [Entitic vol]Ordered By: Maye Bunting on 07-04-2022 Platelet mean volume (Bld) [Entitic vol] 9.7 fL 6.6-10.1 [facility] Platelets Auto (Bld) [#/Vol] Ordered By: Maye Bunting on 07-04-2022 Platelets (Bld) [#/Vol] 205 10*3/uL 150-450 [facility] Potassium [Moles/volume] in Serum or PlasmaOrdered By: Maye Bunting on 07-04-2022 Potassium [Moles/Vol] TNP [facility] Comment on above: Test not performedHe molysis is present at a level that could interfere with the result. Protein [Mass/volume] in Ser um or PlasmaOrdered By: Maye Bunting on 07-04-2022 Protein [Mass/Vol] 8.6 g/dL 6.4-8.9 [facility] RBC Auto (Bld) [#/Vol]Ordere d By: Maye Bunting on 07-04-2022 RBC (Bld) [#/Vol] 3.40 10*6/uL 3.90-5.60 [facility] Serum or plasma albumin/glob ulin mass ratioOrdered By: Maye Bunting on 07-04-2022 Albumin/Globulin [Mass ratio] 0.8 {ratio} [facility] Serum or plasma anion gap de terminationOrdered By: Maye Bunting on 07-04-2022 Anion gap [Moles/Vol] TNP [facility] Comment on above: Test not performed Sodium [Moles/volume] in Ser um or PlasmaOrdered By: Maye Bunting on 07-04-2022 Sodium [Moles/Vol] 136 mmol/L 136-145 [facility] Urea nitrogen [Mass/volume] in Serum or PlasmaOrdered By: Maye Bunting on 07-04-2022 Urea nitrogen [Mass/Vol] 57 mg/dL 7-25 [facility] WBC Auto (Bld) [#/Vol]Ordere d By: Maye Bunting on 07-04-2022 WBC (Bld) [#/Vol] 11.4 10*3/uL 4.1-10.5 [facility] BRIEF OP NOTon 07-01-2022 BRIEF OP NOT HNO ID: [id number] Author: Riya Arambula MD Service: Radiology Author Type: Physician Type: Brief Op Note Filed: 07/01/2022 1:22 PM Note Text: RADIOLOGY BRIEF PROCEDURE NOTE LOG ID: [id number] Surgery/Procedure Date: 07/01/2022 Incision/Procedure Start Time: 12:44 PM Incision Close/Procedure End Time: 1:04 PM Informed Consent obtained under separate note. ATTENDING RADIOLOGIST: Interventional: Dr. Riya Arambula PRESCHOOL ADVISER: None PRE-PROCEDURAL DIAGNOSIS: Left ureteral occlusion ANESTHESIA: Procedural Sedation PROCEDURE: Antegrade attempt to traverse left mid-ureteral occlusion was unsuccessful. New 10 Malian nephrostomy catheter placed. POST-PROCEDURAL DIAGNOSIS: Same COMPLICATIONS: None ESTIMATED BLOOD LOSS: Minimal INDWELLING DEVICES: [employer] 10 [place] nephrostomy catheter SPECIMENS: None DISPOSITION: Patient hemodynamically stable, alert and awake. Patient transferred to General PACU for monitoring prior to anticipated discharge. FULL REPORT TO FOLLOW (under the Imaging tab in the Chart Review section) SIGNATURE: Riya Arambula MD PATIENT NAME: Simon Lott DATE: July 01, 2022 TIME: 1:20 PM CONTACT #: [phone] [facility] HISTORY PHYSICALon HISTORY PHYSICAL HNO ID: [id number] Author: Riya Arambula MD Service: Radiology Author [...] DATE: July 01, 2022 TIME: 12:35 PM [facility] IR EXCHANGE NEPH TUBEon 06-06 IR EXCHANGE NEPH TUBE * * *Final Report* * * DATE OF EXAM: Jul 01 2022 1:00PM [facility] 0777 - IR EXCHANGE NEPH TUBE / PROCEDURE REASON: Hydronephrosis, unspecified hydronephrosis type [N13.30] * * * * Physician Interpretation * * * * PROCEDURE: GENITOURINARY CATHETER EXCHANGE Procedural Personnel Attending physician(s): Riya Arambula M.D. 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 He is referred back to IR today by his urologist, Dr. Kiko Corbett of [facility], for an attempt at internalization (see [...] exchanged for a new nephrostomy catheter. The [place] loop was secured within the renal pelvis and the external portion of the catheter was secured to the skin with 0 Prolene. Pre-existing genitourinary catheter: 10 F [employer] nephrostomy Genitourinary catheter(s) placed: 10 F [employer] nephrostomy Findings: Complete occlusion of the [...] performed by the: attending radiologist, without an cleaner assistant. The attending radiologist performed the following procedural activities: Entire procedure IMPRESSION: Unsuccessful attempt to traverse the complete occlusion (more content not included)... [facility] NURSING PROGon 07-01-2022 NURSING PROG HNO ID: [id number] Author: Carol Teresa RN Service: ? Author Type: Registered Nurse Type: Nursing Progress Note Filed: 07/01/2022 11:24 AM Note Text: Spoke with long term about meds, pt took plavix and asa today as usual, IR informed, will proceed with procedure [facility] PT EDon 07-01-2022 PT ED HNO ID: [id number] Author: Theodora Robison RN Service: Radiology Author Type: Registered Nurse Type: Patient Education Filed: 07/01/2022 12:49 PM Note Text: PATIENT EDUCATION TOPIC: PROCEDURE / SURGERY: Procedure/Surgery: neph tube change PATIENT NAME: Simon Lott PATIENT LOCATION: AV Rad Proc/ Rad Proc READINESS TO LEARN COGNITIVE ABILITY: [...] (RECOMMENDATION): None Electronically Signed By: Theodora Robison [facility] Alanine aminotransferase [En zymatic activity/volume] in Serum or PlasmaOrdered By: Maye Murray on 06-20-2022 ALT [Catalytic activity/Vol] 16 U/L 7-52 [facility] Albumin [Mass/volume] in Ser um or Plasma by Bromocresol green (BCG) dye binding methoOrdered By: Maye Bunting on 06-20-2022 Albumin BCG dye [Mass/Vol] 3.5 g/dL 3.5-5.7 [facility] Alkaline phosphatase [Enzyma tic activity/volume] in Serum or PlasmaOrdered By: Maye Bunting on 06-20-2022 ALP [Catalytic activity/Vol] 120 U/L 34-104 [facility] Aspartate aminotransferase [ Enzymatic activity/volume] in Serum or PlasmaOrdered By: Maye Bunting on 06-20-2022 AST [Catalytic activity/Vol] 24 U/L 13-39 [facility] Bilirubin.total [Mass/volume ] in Serum or PlasmaOrdered By: Maye Bunting on 06-20-2022 Bilirubin [Mass/Vol] 0.3 mg/dL 0.3-1.0 [facility] Calcium [Mass/volume] in Ser um or PlasmaOrdered By: Maye Bunting on 06-20-2022 Calcium [Mass/Vol] 8.7 mg/dL 8.6-10.3 [facility] Carbon dioxide, total [Moles /volume] in Serum or PlasmaOrdered By: Maye Bunting on 06-20-2022 CO2 [Moles/Vol] 22.6 mmol/L 21.0-31.0 [facility] Chloride [Moles/volume] in S leti or PlasmaOrdered By: Maye Bunting on 06-20-2022 Chloride [Moles/Vol] 107 mmol/L 98-107 [facility] [facility] Pane fidel 06-20-2022 Albumin [Mass/Vol] 3.5 g/dL Normal 3.5-5.7 [facility] Comment on above: Performed By: #### C ALLY, CMP ####[facility] [id number] [place] [address] [facility] Albumin/Globulin [Mass ratio] 0.7 {ratio} Normal [facility] Comment on above: Performed By: #### C ALLY, CMP ####[address] [place] [address] [facility] ALP [Catalytic activity/Vol] 120 U/L High 34-104 [facility] Comment on above: Result Comment: PERF ORMED BY:[address] [address] [place], [place] [phone] MEDICAL DIRECTORCHRISTO PINO M.D. Performed By: #### C BCRAISA, CMP ####[id number] [facility] ALT [Catalytic activity/Vol] 16 U/L Normal 7-52 [facility] Comment on above: Performed By: #### C ALLY, CMP ####[address] [facility] Anion gap [Moles/Vol] 14.1 mmol/L Normal 6.0-15.0 [facility] Comment on above: Performed By: #### C ALLY, CMP ####[id number] [facility] AST [Catalytic activity/Vol] 24 U/L Normal 13-39 [facility] Comment on above: Performed By: #### C ALLY, CMP ####[address] [facility] Bilirubin [Mass/Vol] 0.3 mg/dL Normal 0.3-1.0 [facility] Comment on above: Performed By: #### C ALLY, CMP ####[address] [facility] Calcium [Mass/Vol] 8.7 mg/dL Normal 8.6-10.3 [facility] Comment on above: Performed By: #### C BCRAISA, CMP ####[address] [facility] Chloride [Moles/Vol] 107 mmol/L Normal 98-107 [facility] Comment on above: Performed By: #### C BCNO, CMP ####[address] [facility] CO2 [Moles/Vol] 22.6 mmol/L Normal 21.0-31.0 [facility] Comment on above: Performed By: #### C ALLY, CMP ####[address] [place] [address] [facility] Creatinine [Mass/Vol] 4.66 mg/dL High 0.70-1.30 [facility] Comment on above: Performed By: #### C ALLY, CMP ####[address] [address] [facility] GFR/1.73 sq M.predicted MDRD (S/P/Bld) [Vol rate/Area] 12.613 mL/min/{1.73_m2} Normal [facility] Comment on above: Performed By: #### C ALLY, CMP ####[address] [place] [id number] [facility] Globulin (S) [Mass/Vol] 4.9 g/dL Normal [facility] Comment on above: Performed By: #### C ALLY, CMP ####[id number] [facility] Glucose [Mass/Vol] 127 mg/dL High 74-109 [facility] Comment on above: Result Comment: [facility] Glucose Reference Range is dependent on time and content of last meal. Glucose of more than 200 mg/dL in a nonstressed, ambulatory subject supports the diagnosis of Diabetes Mellitus. ADA recommended reference range Performed By: #### C ALLY, CMP ####[address] [address] [facility] Potassium [Moles/Vol] 5.7 mmol/L High 3.5-5.1 [facility] Comment on above: Performed By: #### C ALLY, CMP ####[address] [facility] Protein [Mass/Vol] 8.4 g/dL Normal 6.4-8.9 [facility] Comment on above: Performed By: #### C ALLY, CMP ####[address] [facility] Sodium [Moles/Vol] 138 mmol/L Normal 136-145 [facility] Comment on above: Performed By: #### C ALLY, CMP ####[facility] [id number] [place] [address] [facility] Urea nitrogen [Mass/Vol] 69 mg/dL High 7-25 [facility] Comment on above: Performed By: #### C ALLY, CMP ####[facility] [id number] [place] [address] [facility] Creatinine [Mass/volume] in Serum or PlasmaOrdered By: Maye Bunting on 06-20-2022 Creatinine [Mass/Vol] 4.66 mg/dL 0.70-1.30 [facility] Erythrocyte distribution wid th Auto (RBC) [Ratio]Ordered By: Maye Bunting on 06-20-2022 Erythrocyte distribution width (RBC) [Ratio] 16.0 % 12.0-14.8 [facility] Globulin Calc (S) [Mass/Vol] Ordered By: Maye Bunting on 06-20-2022 Globulin (S) [Mass/Vol] 4.9 g/dL F [facility] Glucose [Mass/volume] in Ser um or PlasmaOrdered By: Maye Bunting on 06-20-2022 Glucose [Mass/Vol] 127 mg/dL 74-109 [facility] Comment on above: ADA recommended refe rence rangeRandom Glucose Reference Range is dependent on time and content of last meal. Glucose of more than 200 mg/dL in a nonstressed, ambulatory subject supports the diagnosis of Diabetes Mellitus. Hematocrit Auto (Bld) [Volum e fraction]Ordered By: Maye Bunting on 06-20-2022 Hematocrit (Bld) [Volume fraction] 29.8 % 38.8-50.0 [facility] Hemoglobin [Mass/volume] in BloodOrdered By: Maye Bunting on 06-20-2022 Hemoglobin (Bld) [Mass/Vol] 9.8 g/dL 13.0-17.0 [facility] Hemogram CBC Without Diffon 06-20-2022 Erythrocyte distribution width (RBC) [Ratio] 16.0 % High 12.0-14.8 [facility] Comment on above: Performed By: #### C BCRAISA, CMP ####[address] [address] [facility] Hematocrit (Bld) [Volume fraction] 29.8 % Low 38.8-50.0 [facility] Comment on above: Performed By: #### C BCNO, CMP ####[address] [address] [facility] Hemoglobin (Bld) [Mass/Vol] 9.8 g/dL Low 13.0-17.0 [facility] Comment on above: Performed By: #### C BCRAISA, CMP ####[place] [id number] [facility] MCH (RBC) [Entitic mass] 31.9 pg Normal 27.5-35.2 [facility] Comment on above: Performed By: #### C BCRAISA, CMP ####[place] [id number] [facility] MCV (RBC) [Entitic vol] 97.1 fL Normal 83.5-101 [facility] Comment on above: Performed By: #### C ALLY, CMP ####[place] [id number] [facility] Mean Corpuscular HGB Conc 32.8 g/dL Normal 32.5-35.6 [facility] Comment on above: Performed By: #### C BCRAISA, CMP ####[address] [id number] [facility] Platelet mean volume (Bld) [Entitic vol] 10.4 fL High 6.6-10.1 [facility] Comment on above: Result Comment: PERF ORMED BY:[address] [place] [phone] MEDICAL DIRECTORCHRISTO PINO M.D. Performed By: #### C BCNO, CMP ####[address] [address] [facility] Platelets (Bld) [#/Vol] 178 10*3/uL Normal 150-450 [facility] Comment on above: Performed By: #### C BCNO, CMP ####[facility] [id number] [place] [address] [facility] RBC (Bld) [#/Vol] 3.07 10*6/uL Low 3.90-5.60 [facility] Comment on above: Performed By: #### C BCNO, CMP ####[facility] [place] [id number] [facility] WBC (Bld) [#/Vol] 10.5 10*3/uL Normal 4.1-10.5 [facility] Comment on above: Performed By: #### C BCNO, CMP ####[facility] [place] [id number] [facility] Laboratory - Chemistry and C hemistry - challengeOrdered By: Maye Bunting on 06-20-2022 GFR/1.73 sq M.predicted MDRD (S/P/Bld) [Vol rate/Area] 12.613 mL/min/{1.73_m2} [facility] Leukocytes [#/volume] correc lakesha for nucleated erythrocytes in Blood by Automated counOrdered By: Maye Bunting on 06-20-2022 WBC corrected for nucl RBC Auto (Bld) [#/Vol] 10.5 10*3/uL 4.1-10.5 [facility] MCH Auto (RBC) [Entitic mass ]Ordered By: Maye Bunting on 06-20-2022 MCH (RBC) [Entitic mass] 31.9 pg 27.5-35.2 [facility] MCHC Auto (RBC) [Mass/Vol]Or dered By: Maye Bunting on 06-20-2022 MCHC (RBC) [Mass/Vol] 32.8 g/dL 32.5-35.6 [facility] MCV Auto (RBC) [Entitic vol] Ordered By: Maye Bunting on 06-20-2022 MCV (RBC) [Entitic vol] 97.1 fL 83.5-101 [facility] No Panel InformationOrdered By: Maye Bunting on 06-20-2022 Pharmacy Creatinine Clearance (Chem N/A [facility] 12.613 [facility] N/A [facility] Platelet mean volume Auto (B ld) [Entitic vol]Ordered By: Maye Bunting on 06-20-2022 Platelet mean volume (Bld) [Entitic vol] 10.4 fL 6.6-10.1 [facility] Platelets Auto (Bld) [#/Vol] Ordered By: Maye Bunting on 06-20-2022 Platelets (Bld) [#/Vol] 178 10*3/uL 150-450 [facility] Potassium [Moles/volume] in Serum or PlasmaOrdered By: Maye Bunting on 06-20-2022 Potassium [Moles/Vol] 5.7 mmol/L 3.5-5.1 [facility] Protein [Mass/volume] in Ser um or PlasmaOrdered By: Maye Bunting on 06-20-2022 Protein [Mass/Vol] 8.4 g/dL 6.4-8.9 [facility] RBC Auto (Bld) [#/Vol]Ordere d By: Maye Bunting on 06-20-2022 RBC (Bld) [#/Vol] 3.07 10*6/uL 3.90-5.60 [facility] Serum or plasma albumin/glob ulin mass ratioOrdered By: Maye Bunting on 06-20-2022 Albumin/Globulin [Mass ratio] 0.7 {ratio} [facility] Serum or plasma anion gap de terminationOrdered By: Maye Bunting on 06-20-2022 Anion gap [Moles/Vol] 14.1 mmol/L 6.0-15.0 [facility] Sodium [Moles/volume] in Ser um or PlasmaOrdered By: Maye Bunting on 06-20-2022 Sodium [Moles/Vol] 138 mmol/L 136-145 [facility] Urea nitrogen [Mass/volume] in Serum or PlasmaOrdered By: Maye Bunting on 06-20-2022 Urea nitrogen [Mass/Vol] 69 mg/dL 7-25 [facility] Bacteria Ur Culton 3 Bacteria identified Cx [...] , Intermediate >32 , Resistant >64 Abnormal [facility] Comment on above: Performed By: #### 5 8410-2 #### [facility] CLIA [id number] [address] [place] [address] [place] Basic metabolic 2000 panelon 05-06-2022 Anion gap [Moles/Vol] 8 mmol/L Low 9-18 [facility] Comment on above: Order Comment: Speci men Type: BLOOD SPECIMEN Ordering Facility: [facility] Address: [address] [place] [address] Performed By: #### 5 8410-2 #### [facility] CLIA [id number] [address] [place] [address] [place] Calcium [Mass/Vol] 9.0 mg/dL Normal 8.5-10.2 [facility] Comment on above: Order Comment: Speci men Type: BLOOD SPECIMEN Ordering Facility: [facility] Address: [address] [place] [address] Performed By: #### 5 8410-2 #### [facility] [place] [id number] [place] [address] [place] Chloride [Moles/Vol] 106 mmol/L High 97-105 [facility] Comment on above: Order Comment: Speci men Type: BLOOD SPECIMEN Ordering Facility: [facility] Address: [address] [place] [address] Performed By: #### 5 8410-2 #### [facility] [place] [id number] [address] [place] [address] [place] CO2 [Moles/Vol] 20 mmol/L Low 22-30 [facility] Comment on above: Order Comment: Speci men Type: BLOOD SPECIMEN Ordering Facility: [facility] Address: [address] [address] Performed By: #### 5 8410-2 #### [facility] [place] [id number] [address] [place] [address] [place] Creatinine [Mass/Vol] 4.54 mg/dL High 0.73-1.22 [facility] Comment on above: Order Comment: Speci men Type: BLOOD SPECIMEN Ordering Facility: [facility] Address: [address] [place] [address] Performed By: #### 5 8410-2 #### [facility] CLIA [id number] [facility] [place] [address] [place] ESTIMATED GLOMERULAR FILTRATION RATE 13 mL/min/1.73m??? Low >=60 [facility] Comment on above: Order Comment: Carlos juan alberto Type: BLOOD SPECIMEN Ordering Facility: [facility] Address: [address] [place] [address] Result Comment: Samantha mated Glomerular Filtration Rate [...] GFR. Performed By: #### 5 8410-2 #### [facility] CLIA [id number] [address] [facility] [place] [address] [place] Glucose [Mass/Vol] 85 mg/dL Normal 74-99 [facility] Comment on above: Order Comment: Carlos juan alberto Type: BLOOD SPECIMEN Ordering Facility: [facility] Address: [address] [place] [address] Result Comment: The [place] Diabetes Association (ADA) provides guidance for cutoff [...] Standards of Medical Care in Diabetes 2016, [place] [employer] Association. Diabetes Care. 2016.39(Suppl 1). Performed By: #### 5 8410-2 #### [facility] CLIA [id number] [address] [place] [address] [place] Potassium [Moles/Vol] 6.4 mmol/L Critically high 3.7-5.1 [facility] Comment on above: Order Comment: Speci men Type: BLOOD SPECIMEN Ordering Facility: [facility] Address: [address] Performed By: #### 5 8410-2 #### [facility] CLIA [id number] [address] [place] [address] [place] Sodium [Moles/Vol] 134 mmol/L Low 136-144 [facility] Comment on above: Order Comment: Speci men Type: BLOOD SPECIMEN Ordering Facility: [facility] Address: [address] Performed By: #### 5 8410-2 #### [facility] CLIA [id number] [place] [address] [place] Urea nitrogen [Mass/Vol] 74 mg/dL High 9-24 [facility] Comment on above: Order Comment: Speci men Type: BLOOD SPECIMEN Ordering Facility: [facility] Address: [address] Performed By: #### 5 8410-2 #### [facility] CLIA [id number] [place] [address] [place] CBC panel Auto (Bld)on 05-06 Erythrocyte distribution width (RBC) [Ratio] 18.3 % High 11.5-15.0 [facility] Comment on above: Order Comment: Speci men Type: BLOOD SPECIMEN Ordering Facility: [facility] Address: [address] Performed By: #### 5 8410-2 #### [facility] CLIA [id number] [address] [place] [address] [place] Hematocrit (Bld) [Volume fraction] 32.4 % Low 39.0-51.0 [facility] Comment on above: Order Comment: Speci men Type: BLOOD SPECIMEN Ordering Facility: [facility] Address: [address] [id number] Performed By: #### 5 8410-2 #### [facility] [place] [id number] [place] Hemoglobin (Bld) [Mass/Vol] 10.5 g/dL Low 13.0-17.0 [facility] Comment on above: Order Comment: Speci men Type: BLOOD SPECIMEN Ordering Facility: [facility] Address: [address] [address] Performed By: #### 5 8410-2 #### [facility] [place] [id number] [place] [address] [place] MCH (RBC) [Entitic mass] 29.2 pg Normal 26.0-34.0 [facility] Comment on above: Order Comment: Speci men Type: BLOOD SPECIMEN Ordering Facility: [facility] Address: [address] [address] Performed By: #### 5 8410-2 #### [facility] [place] [id number] [place] [address] [place] [facility] MCHC (RBC) [Mass/Vol] 32.4 g/dL Normal 30.5-36.0 [facility] Comment on above: Order Comment: Speci men Type: BLOOD SPECIMEN Ordering Facility: [facility] Address: [address] [address] Performed By: #### 5 8410-2 #### [facility] [place] [id number] OF [facility] MCV (RBC) [Entitic vol] 90.0 fL Normal 80.0-100.0 [facility] Comment on above: Order Comment: Speci men Type: BLOOD SPECIMEN Ordering Facility: [facility] Address: [address] [address] Performed By: #### 5 8410-2 #### [facility] [place] [id number] [address] [place] Nucleated RBC (Bld) [#/Vol] 10*3/uL Normal <0.01 [facility] Comment on above: Order Comment: Speci men Type: BLOOD SPECIMEN Ordering Facility: [facility] Address: [address] [address] Performed By: #### 5 8410-2 #### [facility] CLIA [id number] [address] [place] [address] [place] Platelet mean volume (Bld) [Entitic vol] 12.5 fL Normal 9.0-12.7 [facility] Comment on above: Order Comment: Speci men Type: BLOOD SPECIMEN Ordering Facility: [facility] Address: [address] [address] Performed By: #### 5 8410-2 #### [facility] CLIA [id number] [address] [place] [address] [place] Platelets (Bld) [#/Vol] 200 10*3/uL Normal 150-400 [facility] Comment on above: Order Comment: Speci men Type: BLOOD SPECIMEN Ordering Facility: [facility] Address: [address] [place] [address] Result Comment: Resu lts checked and verified.No clot detected. Performed By: #### 5 8410-2 #### [facility] CLIA [id number] [address] [place] [address] [place] RBC (Bld) [#/Vol] 3.60 10*6/uL Low 4.20-6.00 [facility] Comment on above: Order Comment: Speci men Type: BLOOD SPECIMEN Ordering Facility: [facility] Address: [address] Performed By: #### 5 8410-2 #### [facility] CLIA [id number] [address] [place] [id number] [place] WBC (Bld) [#/Vol] 12.40 10*3/uL High 3.70-11.00 [facility] Comment on above: Order Comment: Speci men Type: BLOOD SPECIMEN Ordering Facility: [facility] Address: [address] [place] [address] Performed By: #### 5 8410-2 #### [facility] CLIA [id number] [address] [facility] [place] [address] [place] HISTORY PHYSICALon 3 HISTORY PHYSICAL HNO ID: [id number] Author: Alejandro Flores MD Service: Interventional Radiology [...] [facility] (transferred to clinical programmer, first time was able to leave message, [...] Provisional Diagnosis (more content not included)... Normal [facility] IR PLACE NEPH TUBEon [address]PH [address]UBE * * *Final Report* * * DATE OF EXAM: May 06 2022 2:38PM [facility] 0779 - IR PLACE NEPH [...] transferred to [facility] (transferred to clinical programmer, first time was able to leave message, however thereafter repeatedly disconnected). Have not received call-back despite leaving message on 05/03. PROCEDURE SUMMARY - Target organ: Unilateral [place] kidney - Image-guided placement of genitourinary catheter(s) [...] for analysis. Genitourinary catheter placed: 10 F [employer] nephrostomy Findings: 1. Initial ultrasound showed mild hydronephrosis. 2. Satisfactory positioning of new nephrostomy tube External catheter securement: Non-absorbable suture Additional genitourinary system intervention Genitourinary intervention: None Location of intervention: Not applicable Device used: Not applicable Description of intervention: Not applicable Post-intervention findings: Not applicable Additional Details Additional description of procedure: None Equipment (more content not included)... [facility] NURSING PROGon 05-06-2022 NURSING PROG HNO ID: [id number] Author: Mariam Loya RN Service: Nursing Author Type: Registered Nurse Type: Nursing Progress Note Filed: 05/06/2022 4:07 PM Note Text: Other: Spoke with VIOLET Brady at [facility]. Pt to start on Ceftriaxone 1 gram [...] urine and pt refusing to stay overnight. [facility] CNPMckenzie 05-03-2022 CNPN Telephone (AVXRPR) SIMON LOTT ([id number]) 1950 M Date Time Provider Department 05/03/22 MILE BIRMINGHAM AVNILAY During your visit today, we recorded the following information about you: Mile Birmingham RN 05/03/2022 12:12 PM Signed cigar brander called [phone] inquiring about patient's procedure today to clarify [...] Encounter Status:Closed by MILE BIRMINGHAM on 05/03/22 [facility] NURSING PROGon 05-03-2022 NURSING PROG HNO ID: [id number] Author: Zahra Garay RN Service: ? Author [...] for ttentative rescheduling of procedure for friday [facility] CNPMckenzie 04-23-2022 MESFIN Telephone (AVXRPR) SIMON LOTT ([id number]) 1950 M Date Time Provider Department 04/23/22 MATTHEW MAKI During your visit today, we recorded the following information about you: Matthew Maki RN 04/23/2022 2:32 PM Signed You are scheduled for a nephrostomy tube placement on 05/03/2022. You are to arrive at 10:30 am and Report to [facility]: Enter through [facility] entrance. Proceed [...] drawn? Yes. To be drawn in pre-op. Lease Out Man/Transportation: How will you be arriving for your procedure? Ambulance service. You will need a responsible adult to accompany you to and from the procedure. Your local company refrigerated truck driver is required to stay with you until you are taken into the procedure room. Spoke to director of veterans affairs at [facility] and gave all instructions. Stated patient would [...] Status:Closed by MATTHEW MAKI on 04/23/22 Normal [facility] Anisocytosis LM Ql (Bld)Orde red By: ENZO HARGROVE on 04-09-2022 Anisocytosis Ql (Bld) Marked [facility] Basic Metabolic Panelon Anion gap [Moles/Vol] 14.8 mmol/L Normal 6.0-15.0 [facility] Comment on above: Performed By: #### B ####[facility] [address] [place] [address] [facility] Calcium [Mass/Vol] 8.6 mg/dL Normal 8.2-10.2 [facility] Comment on above: Performed By: #### B MP ####[facility] [place] [address] [facility] Chloride [Moles/Vol] 103 mmol/L Normal 95-114 [facility] Comment on above: Performed By: #### B MP ####[address] [place] [address] [facility] CO2 [Moles/Vol] 21.6 mmol/L Low 22.0-30.0 [facility] Comment on above: Performed By: #### B MP ####[address] [place] [address] [facility] Creatinine [Mass/Vol] 4.71 mg/dL High 0.64-1.27 [facility] Comment on above: Performed By: #### B MP ####[address] [place] [address] [facility] Creatinine Clr Calc Pharmacy 18.62 [facility] Comment on above: Result Comment: PERF ORMED BY:[address] [place], [place] [phone] MEDICAL DIRECTORCHRISTO PINO M.D. Performed By: #### B MP ####[address] [address] [facility] Estimated GFR ( Cristo 15 [facility] Comment on above: Result Comment: GFR estimated reference range: According to KDOQI guidelines, <60 ml/min/1.73m2 is sufficient to diagnose a patient with chronic kidney disease. Performed By: #### B MP ####[address] [address] [facility] Estimated GFR (Non- Am 12 [facility] Comment on above: Performed By: #### B MP ####[address] [place] [id number] [facility] Glucose [Mass/Vol] 104 mg/dL High 70-100 [facility] Comment on above: Result Comment: [place] [facility] Glucose Reference Range is dependent on time and content of last meal. Glucose of more than 200 mg/dL in a nonstressed, ambulatory subject supports the diagnosis of Diabetes Mellitus. ADA recommended reference range Performed By: #### B MP ####[address] [place] [address] [facility] Potassium [Moles/Vol] 5.4 mmol/L High 3.5-5.1 [facility] Comment on above: Performed By: #### B MP ####[address] [place] [address] [facility] Sodium [Moles/Vol] 134 mmol/L Low 136-146 [facility] Comment on above: Performed By: #### B MP ####[address] [place] [address] [facility] Urea nitrogen [Mass/Vol] 63 mg/dL High 9-23 [facility] Comment on above: Performed By: #### B MP ####[address] [place] [address] [facility] Basophils Auto (Bld) [#/Vol] Ordered By: ENZO HARGROVE on 04-09-2022 Basophils (Bld) [#/Vol] N/A [facility] Basophils/100 WBC Auto (Bld) Ordered By: ENZO HARGROVE on 04-09-2022 Basophils/100 WBC (Bld) N/A [facility] Creatinine and Glomerular fi ltration rate.predicted panel (S/P/Bld)Ordered By: ENZO HARGROVE on 04-09-2022 Creatinine [Mass/Vol] 4.71 mg/dL 0.64-1.27 [facility] Diff and CBCon 04-09-2022 Anisocytosis Ql (Bld) Marked Normal [facility] Comment on above: Performed By: #### D IFF CBC ####[address] [place] [address] [place] Eosinophils/100 WBC (Bld) 9 % High 1-3 [facility] Comment on above: Performed By: #### D IFF CBC ####[address] [place] [address] [facility] Erythrocyte distribution width (RBC) [Ratio] 19.3 % High 12.0-14.8 [facility] Comment on above: Performed By: #### D IFF CBC ####[facility] [place] [address] [facility] Giant Platelet Tally 9 /100{WBC} Normal [facility] Comment on above: Performed By: #### D IFF CBC ####[address] [place] [address] [facility] Hematocrit (Bld) [Volume fraction] 31.8 % Low 38.8-50.0 [facility] Comment on above: Performed By: #### D IFF CBC ####[address] [id number] [facility] Hemoglobin (Bld) [Mass/Vol] 10.6 g/dL Low 13.0-17.0 [facility] Comment on above: Performed By: #### D IFF CBC ####[id number] [facility] Hypochromasia Slight Normal [facility] Comment on above: Performed By: #### D IFF CBC ####[id number] [facility] Large Platelets Moderate Normal [facility] Comment on above: Result Comment: PERF ORMED BY:[address] [place], [place] [phone] MEDICAL DIRECTORCHRISTO PINO M.D. Performed By: #### D IFF CBC ####[id number] [facility] Lymphocytes/100 WBC (Bld) 39 % Normal 18-42 [facility] Comment on above: Performed By: #### D IFF CBC ####[address] [address] [facility] Macrocytosis Marked Normal [facility] Comment on above: Performed By: #### D IFF CBC ####[id number] [facility] MCH (RBC) [Entitic mass] 34.3 pg Normal 27.5-35.2 [facility] Comment on above: Performed By: #### D IFF CBC ####[address] [place] [address] [facility] MCV (RBC) [Entitic vol] 102.5 fL High 83.5-101 [facility] Comment on above: Performed By: #### D IFF CBC ####[address] [address] [facility] Mean Corpuscular HGB Conc 33.5 g/dL Normal 32.5-35.6 [facility] Comment on above: Performed By: #### D IFF CBC ####[address] [address] [facility] Monocytes/100 WBC (Bld) 5 % Normal 2-11 [facility] Comment on above: Performed By: #### D IFF CBC ####[address] [place] [address] [facility] Platelet Estimate Normal Normal Normal [facility] Comment on above: Performed By: #### D IFF CBC ####[address] [address] [facility] Platelet mean volume (Bld) [Entitic vol] 10.1 fL Normal 6.6-10.1 [facility] Comment on above: Result Comment: PERF ORMED BY:[address] [place], [place] [phone] MEDICAL MOOSE PINO M.D. Performed By: #### D IFF CBC ####[address] [address] [facility] Platelets (Bld) [#/Vol] 202 10*3/uL Normal 150-450 [facility] Comment on above: Performed By: #### D IFF CBC ####[address] [address] [facility] Polychromasia Slight Normal [facility] Comment on above: Performed By: #### D IFF CBC ####[address] [address] [facility] RBC (Bld) [#/Vol] 3.10 10*6/uL Low 3.90-5.60 [facility] Comment on above: Performed By: #### D IFF CBC ####[facility] [address] [place] [address] [facility] Reactive Lymphocytes 1 % Normal 0-12 [facility] Comment on above: Performed By: #### D IFF CBC ####[facility] [address] [place] [address] [facility] Segmented neutrophils/100 WBC (Bld) 46 % Low 50-70 [facility] Comment on above: Performed By: #### D IFF CBC ####[facility] [address] [place] [address] [facility] Target Cells Slight Normal [facility] Comment on above: Performed By: #### D IFF CBC ####[facility] [address] [place] [address] [facility] WBC (Bld) [#/Vol] 10.7 10*3/uL High 4.1-10.5 [facility] Comment on above: Performed By: #### D IFF CBC ####[facility] [address] [place] [id number] [facility] Eosinophils Auto (Bld) [#/Vo l]Ordered By: ENZO HARGROVE on 04-09-2022 Eosinophils (Bld) [#/Vol] N/A [facility] Eosinophils/100 WBC Auto (Bl d)Ordered By: ENZO HARGROVE on 04-09-2022 Eosinophils/100 WBC (Bld) N/A [facility] Eosinophils/100 WBC Manual c nt (Bld)Ordered By: ENZO HARGROVE on 04-09-2022 Eosinophils/100 WBC (Bld) 9 % 1-3 [facility] Erythrocyte distribution wid th Auto (RBC) [Ratio]Ordered By: ENZO HARGROVE on 04-09-2022 Erythrocyte distribution width (RBC) [Ratio] 19.3 % 12.0-14.8 [facility] Estimated glomerular filtrat ion rate (GFR) non- AmericanOrdered By: ENZO HARGROVE on 04-09-2022 GFR/1.73 sq M.predicted among non-blacks MDRD (S/P/Bld) [Vol rate/Area] 12 mL/Min [facility] FL urethrocystogram retroon 04-09-2022 FL urethrocystogram retro Normal [facility] Giant platelets/100 leukocyt es [Ratio] in Blood by Manual countOrdered By: ENZO HARGORVE on 04-09-2022 Giant platelets/100 WBC Manual cnt (Bld) [Ratio] 9 /100{WBC} [facility] Glucose Glucometer (BldC) [M ass/Vol]Ordered By: Kiko Corbett on 04-09-2022 Glucose [Mass/Vol] 122 mg/dL [facility] Comment on above: Random Glucose Refer ence Range is dependent on time and content of last meal. Glucose of more than 200 mg/dL in a nonstressed, ambulatory subject supports the diagnosis of Diabetes Mellitus. Glucose Poct Glucometerson 0 04-09-2022 Commemt1 Glu2: Cleaned Meter Normal [facility] Comment on above: Result Comment: PERF ORMED BY:[id number] [place], [place] [phone] MEDICAL DIRECTORCHRISTO PINO M.D. Performed By: #### G LULS ####Point of Care testing, Glucose [Mass/Vol] 122 mg/dL Normal [facility] Comment on above: Result Comment: [place] om Glucose Reference Range is dependent on time and content of last meal. Glucose of more than 200 mg/dL in a nonstressed, ambulatory subject supports the diagnosis of Diabetes Mellitus. Performed By: #### G LULS ####Point of Care testing, Hematocrit Auto (Bld) [Volum e fraction]Ordered By: ENZO HARGROVE on 04-09-2022 Hematocrit (Bld) [Volume fraction] 31.8 % 38.8-50.0 [facility] Hemoglobin [Mass/volume] in BloodOrdered By: ENZO HARGROVE on 04-09-2022 Hemoglobin (Bld) [Mass/Vol] 10.6 g/dL 13.0-17.0 [facility] Hypochromia LM Ql (Bld)Order ed By: ENZO HARGROVE on 04-09-2022 Hypochromia Ql (Bld) Slight [facility] Leukocytes [#/volume] correc lakesha for nucleated erythrocytes in Blood by Automated counOrdered By: ENZO HARGROVE on 04-09-2022 WBC corrected for nucl RBC Auto (Bld) [#/Vol] 10.7 10*3/uL 4.1-10.5 [facility] Lymphocytes Auto (Bld) [#/Vo l]Ordered By: ENZO HARGROVE on 04-09-2022 Lymphocytes (Bld) [#/Vol] N/A [facility] Lymphocytes/100 WBC Auto (Bl d)Ordered By: ENZO HARGROVE on 04-09-2022 Lymphocytes/100 WBC (Bld) N/A [facility] Lymphocytes/100 WBC Manual c nt (Bld)Ordered By: ENZO HARGROVE on 04-09-2022 Lymphocytes/100 WBC (Bld) 39 % 18-42 [facility] MCH Auto (RBC) [Entitic mass ]Ordered By: ENZO HARGROVE on 04-09-2022 MCH (RBC) [Entitic mass] 34.3 pg 27.5-35.2 [facility] MCHC Auto (RBC) [Mass/Vol]Or dered By: ENZO HARGROVE on 04-09-2022 MCHC (RBC) [Mass/Vol] 33.5 g/dL 32.5-35.6 [facility] MCV Auto (RBC) [Entitic vol] Ordered By: ENZO HARGROVE on 04-09-2022 MCV (RBC) [Entitic vol] 102.5 fL 83.5-101 [facility] Macrocytes LM Ql (Bld)Ordere d By: ENZO HARGROVE on 04-09-2022 Macrocytes Ql (Bld) Marked [facility] Monocytes Auto (Bld) [#/Vol] Ordered By: ENZO HARGROVE on 04-09-2022 Monocytes (Bld) [#/Vol] N/A [facility] Monocytes/100 WBC Auto (Bld) Ordered By: ENZO HARGROVE on 04-09-2022 Monocytes/100 WBC (Bld) N/A [facility] Monocytes/100 WBC Manual cnt (Bld)Ordered By: ENZO HARGROVE on 04-09-2022 Monocytes/100 WBC (Bld) 5 % 2-11 [facility] Neutrophils Auto (Bld) [#/Vo l]Ordered By: ENZO HARGROVE on 04-09-2022 Neutrophils (Bld) [#/Vol] N/A [facility] Neutrophils/100 WBC Auto (Bl d)Ordered By: ENZO HARGROVE on 04-09-2022 Neutrophils/100 WBC (Bld) N/A [facility] No Panel InformationOrdered By: Kiko Corbett on 04-09-2022 Bedside Glucose Comment Glu2: cleaned meter [facility] No Panel InformationOrdered By: ENZO HARGROVE on 04-09-2022 Estimated GFR () 15 mL/Min [facility] Comment on above: GFR estimated refere nce range: According to KDOQI guidelines, <60 ml/min/1.73m2 is sufficient to diagnose a patient with chronic kidney disease. Pharmacy Creatinine Clearance (Chem 18.62 [facility] Nucleated erythrocytes [Pres ence] in Blood by Automated countOrdered By: ENZO HARGROVE on 04-09-2022 Nucleated RBC Auto Ql (Bld) N/A [facility] Platelet adequacy [Presence] in Blood by Light microscopyOrdered By: ENZO HARGROVE on 04-09-2022 Platelets LM Ql (Bld) Normal Normal [facility] Platelet mean volume Auto (B ld) [Entitic vol]Ordered By: ENZO HARGROVE on 04-09-2022 Platelet mean volume (Bld) [Entitic vol] 10.1 fL 6.6-10.1 [facility] Platelet morphology finding [Identifier] in BloodOrdered By: ENZO HARGROVE on 04-09-2022 Platelet morphology finding Nom (Bld) N/A [facility] Platelets Auto (Bld) [#/Vol] Ordered By: ENZO HARGROVE on 04-09-2022 Platelets (Bld) [#/Vol] 202 10*3/uL 150-450 [facility] Platelets Large [Presence] i n Blood by Light microscopyOrdered By: ENZO HARGROVE on 04-09-2022 Platelets Large LM Ql (Bld) Moderate [facility] Polychromasia [Presence] in Blood by Light microscopyOrdered By: ENZO HARGROVE on 04-09-2022 Polychromasia LM Ql (Bld) Slight [facility] RBC Auto (Bld) [#/Vol]Ordere d By: ENZO HARGROVE on 04-09-2022 RBC (Bld) [#/Vol] 3.10 10*6/uL 3.90-5.60 [facility] RBC morphologyOrdered By: CLAYTON HARGROVE on 04-09-2022 RBC morphology finding Nom (Bld) N/A [facility] Segmented neutrophils/100 WB C Manual cnt (Bld)Ordered By: ENZO HARGROVE on 04-09-2022 Segmented neutrophils/100 WBC (Bld) 46 % 50-70 [facility] Serum or plasma anion gap de terminationOrdered By: ENZO HARGROVE on 04-09-2022 Anion gap [Moles/Vol] 14.8 mmol/L 6.0-15.0 [facility] Serum or plasma calcium blaire urement (mass/volume)Ordered By: ENZO HARGROVE on 04-09-2022 Calcium [Mass/Vol] 8.6 mg/dL 8.2-10.2 [facility] Serum or plasma chloride melany surement (moles/volume)Ordered By: ENZO HARGROVE on 04-09-2022 Chloride [Moles/Vol] 103 mmol/L 95-114 [facility] Serum or plasma glucose blaire urement (mass/volume)Ordered By: ENZO HARGROVE on 04-09-2022 Glucose [Mass/Vol] 104 mg/dL 70-100 [facility] Comment on above: ADA recommended refe rence rangeRandom Glucose Reference Range is dependent on time and content of last meal. Glucose of more than 200 mg/dL in a nonstressed, ambulatory subject supports the diagnosis of Diabetes Mellitus. Serum or plasma potassium me asurement (moles/volume)Ordered By: ENZO HARGROVE on 04-09-2022 Potassium [Moles/Vol] 5.4 mmol/L 3.5-5.1 [facility] Serum or plasma sodium measu rement (moles/volume)Ordered By: ENZO HARGROVE on 04-09-2022 Sodium [Moles/Vol] 134 mmol/L 136-146 [facility] Serum or plasma total carbon dioxide measurement (moles/volume)Ordered By: ENZO HARGROVE on 04-09-2022 CO2 [Moles/Vol] 21.6 mmol/L 22.0-30.0 [facility] Serum or plasma urea nitroge n measurement (mass/volume)Ordered By: ENZO HARGROVE on 04-09-2022 Urea nitrogen [Mass/Vol] 63 mg/dL 9 [facility] Target cellsOrdered By: MOISE HARGROVE on 04-09-2022 Target cells LM Ql (Bld) Slight [facility] Variant lymphocytes/100 WBC Manual cnt (Bld)Ordered By: ENZO HARGROVE on 04-09-2022 Variant lymphocytes/100 WBC (Bld) 1 % 0-12 [facility] WBC Auto (Bld) [#/Vol]Ordere d By: ENZO HARGROVE on 04-09-2022 WBC (Bld) [#/Vol] 10.7 10*3/uL 4.1-10.5 [facility] XR KUBon 04-09-2022 XR KUB Normal [facility] Diff and CBCon 03-22-2022 Additional Comments [facility] Comment on above: Result Comment: 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 sample was warmed @ 37C in heat block for 1 hr to obtain cbc results and smear for diff count.PERFORMED BY:[id number] [place], [place] [phone] MEDICAL DIRECTORCHRISTO PINO M.D. Performed By: #### D IFF CBC ####[address] [address] [facility] Anisocytosis Ql (Bld) Slight Normal [facility] Comment on above: Performed By: #### D IFF CBC ####[address] [address] [place] Basophils/100 WBC (Bld) 0 % Normal 0-2 [facility] Comment on above: Performed By: #### D IFF CBC ####[address] [address] [place] Eosinophils/100 WBC (Bld) 9 % High 1-3 [facility] Comment on above: Performed By: #### D IFF CBC ####[address] [address] [facility] Erythrocyte distribution width (RBC) [Ratio] 18.7 % High 12.0-14.8 [facility] Comment on above: Performed By: #### D IFF CBC ####[address] [place] [address] [facility] Hematocrit (Bld) [Volume fraction] 26.7 % Low 38.8-50.0 [facility] Comment on above: Performed By: #### D IFF CBC ####[address] [place] [address] [facility] Hemoglobin (Bld) [Mass/Vol] 8.4 g/dL Low 13.0-17.0 [facility] Comment on above: Performed By: #### D IFF CBC ####[address] [address] [facility] Lymphocytes/100 WBC (Bld) 29 % Normal 18-42 [facility] Comment on above: Performed By: #### D IFF CBC ####[address] [place] [address] [facility] MCH (RBC) [Entitic mass] 29.3 pg Normal 27.5-35.2 [facility] Comment on above: Performed By: #### D IFF CBC ####[address] [address] [facility] MCV (RBC) [Entitic vol] 93.2 fL Normal 83.5-101 F [facility] Comment on above: Performed By: #### D IFF CBC ####[address] [address] [facility] Mean Corpuscular HGB Conc 31.5 g/dL Low 32.5-35.6 [facility] Comment on above: Performed By: #### D IFF CBC ####[address] [place] [address] [facility] Monocytes/100 WBC (Bld) 6 % Normal 2-11 [facility] Comment on above: Performed By: #### D IFF CBC ####[address] [place] [address] [facility] Platelet Estimate Normal Normal Normal [facility] Comment on above: Performed By: #### D IFF CBC ####[id number] [facility] Platelet mean volume (Bld) [Entitic vol] 10.3 fL High 6.6-10.1 [facility] Comment on above: Result Comment: PERF ORMED BY:[address] [place], [place] [phone] MEDICAL DIRECTORCHRISTO PINO M.D. Performed By: #### D IFF CBC ####[place] [id number] [facility] Platelet Morphology Normal Normal Normal [facility] Comment on above: Result Comment: PERF ORMED BY:[address] [place], [place] [phone] MEDICAL DIRECTORCHRISTO PINO M.D. Performed By: #### D IFF CBC ####[address] [id number] [facility] Platelets (Bld) [#/Vol] 208 10*3/uL Normal 150-450 [facility] Comment on above: Performed By: #### D IFF CBC ####[address] [address] [facility] Poikilocytosis Slight Normal [facility] Comment on above: Performed By: #### D IFF CBC ####[id number] [facility] Polychromasia Slight Normal [facility] Comment on above: Performed By: #### D IFF CBC ####[address] [id number] [facility] RBC (Bld) [#/Vol] 2.87 10*6/uL Low 3.90-5.60 [facility] Comment on above: Performed By: #### D IFF CBC ####[id number] [facility] Schistocytes Slight Normal [facility] Comment on above: Performed By: #### D IFF CBC ####[id number] [facility] Segmented neutrophils/100 WBC (Bld) 56 % Normal 50-70 [facility] Comment on above: Performed By: #### D IFF CBC ####[facility] [address] [place] [address] [facility] Spherocytes Slight Normal [facility] Comment on above: Performed By: #### D IFF CBC ####[facility] [place] [address] [facility] Target Cells Slight Normal [facility] Comment on above: Performed By: #### D IFF CBC ####[facility] [place] [address] [facility] WBC (Bld) [#/Vol] 11.1 10*3/uL High 4.1-10.5 [facility] Comment on above: Performed By: #### D IFF CBC ####[facility] [place] [address] [facility] Anisocytosis LM Ql (Bld)Orde red By: Maye Bunting on 03-21-2022 Anisocytosis Ql (Bld) Slight [facility] Basophils Auto (Bld) [#/Vol] Ordered By: Maye Bunting on 03-21-2022 Basophils (Bld) [#/Vol] N/A [facility] Basophils/100 WBC Auto (Bld) Ordered By: Maye Bunting on 03-21-2022 Basophils/100 WBC (Bld) N/A [facility] Basophils/100 WBC Manual cnt (Bld)Ordered By: Maye Bunting on 03-21-2022 Basophils/100 WBC (Bld) 0 % 0-2 [facility] Eosinophils Auto (Bld) [#/Vo l]Ordered By: Maye Bunting on 03-21-2022 Eosinophils (Bld) [#/Vol] N/A [facility] Eosinophils/100 WBC Auto (Bl d)Ordered By: Maye Bunting on 03-21-2022 Eosinophils/100 WBC (Bld) N/A [facility] Eosinophils/100 WBC Manual c nt (Bld)Ordered By: Maye Bunting on 03-21-2022 Eosinophils/100 WBC (Bld) 9 % 1-3 [facility] Erythrocyte distribution wid th Auto (RBC) [Ratio]Ordered By: Maye Bunting on 03-21-2022 Erythrocyte distribution width (RBC) [Ratio] 18.7 % 12.0-14.8 [facility] Hematocrit Auto (Bld) [Volum e fraction]Ordered By: Maye Bunting on 03-21-2022 Hematocrit (Bld) [Volume fraction] 26.7 % 38.8-50.0 [facility] Hemoglobin [Mass/volume] in BloodOrdered By: Maye Bunting on 03-21-2022 Hemoglobin (Bld) [Mass/Vol] 8.4 g/dL 13.0-17.0 [facility] Leukocytes [#/volume] correc lakesha for nucleated erythrocytes in Blood by Automated counOrdered By: Maye Bunting on 03-21-2022 WBC corrected for nucl RBC Auto (Bld) [#/Vol] 11.1 10*3/uL 4.1-10.5 [facility] Lymphocytes Auto (Bld) [#/Vo l]Ordered By: Maye Bunting on 03-21-2022 Lymphocytes (Bld) [#/Vol] N/A [facility] Lymphocytes/100 WBC Auto (Bl d)Ordered By: Maye Bunting on 03-21-2022 Lymphocytes/100 WBC (Bld) N/A [facility] Lymphocytes/100 WBC Manual c nt (Bld)Ordered By: Maye Bunting on 03-21-2022 Lymphocytes/100 WBC (Bld) 29 % 18-42 [facility] MCH Auto (RBC) [Entitic mass ]Ordered By: Maye Bunting on 03-21-2022 MCH (RBC) [Entitic mass] 29.3 pg 27.5-35.2 [facility] MCHC Auto (RBC) [Mass/Vol]Or dered By: Maye Bunting on 03-21-2022 MCHC (RBC) [Mass/Vol] 31.5 g/dL 32.5-35.6 [facility] MCV Auto (RBC) [Entitic vol] Ordered By: Maye Bunting on 03-21-2022 MCV (RBC) [Entitic vol] 93.2 fL 83.5-101 [facility] Monocytes Auto (Bld) [#/Vol] Ordered By: Maye Bunting on 03-21-2022 Monocytes (Bld) [#/Vol] N/A [facility] Monocytes/100 WBC Auto (Bld) Ordered By: Maye Bunting on 03-21-2022 Monocytes/100 WBC (Bld) N/A [facility] Monocytes/100 WBC Manual cnt (Bld)Ordered By: Maye Bunting on 03-21-2022 Monocytes/100 WBC (Bld) 6 % 2-11 [facility] Neutrophils Auto (Bld) [#/Vo l]Ordered By: Maye Bunting on 03-21-2022 Neutrophils (Bld) [#/Vol] N/A [facility] Neutrophils/100 WBC Auto (Bl d)Ordered By: Maye Bunting on 03-21-2022 Neutrophils/100 WBC (Bld) N/A [facility] No Panel InformationOrdered By: Maye Bunting on 03-21-2022 CBC Comment See comment [facility] Comment on above: agglutination observ ed on slide 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 sample was warmed @ 37C in heat block for ~1 hrto obtain cbc results and smear for diff count. Nucleated erythrocytes [Pres ence] in Blood by Automated countOrdered By: Maye Bunting on 03-21-2022 Nucleated RBC Auto Ql (Bld) N/A [facility] Platelet adequacy [Presence] in Blood by Light microscopyOrdered By: Maye Bunting on 03-21-2022 Platelets LM Ql (Bld) Normal Normal [facility] Platelet mean volume Auto (B ld) [Entitic vol]Ordered By: Maye Bunting on 03-21-2022 Platelet mean volume (Bld) [Entitic vol] 10.3 fL 6.6-10.1 [facility] Platelet morphology finding [Identifier] in BloodOrdered By: Maye Bunting on 03-21-2022 Platelet morphology finding Nom (Bld) Normal Normal [facility] Platelets Auto (Bld) [#/Vol] Ordered By: Maye Bunting on 03-21-2022 Platelets (Bld) [#/Vol] 208 10*3/uL 150-450 [facility] Poikilocytosis [Presence] in Blood by Light microscopyOrdered By: Maye Bunting on 03-21-2022 Poikilocytosis LM Ql (Bld) Slight [facility] Polychromasia [Presence] in Blood by Light microscopyOrdered By: Maye Bunting on 03-21-2022 Polychromasia LM Ql (Bld) Slight [facility] RBC Auto (Bld) [#/Vol]Ordere d By: Maye Bunting on 03-21-2022 RBC (Bld) [#/Vol] 2.87 10*6/uL 3.90-5.60 [facility] RBC morphologyOrdered By: Da rrin Bunting on 03-21-2022 RBC morphology finding Nom (Bld) N/A [facility] Schistocytes [Presence] in B lood by Light microscopyOrdered By: Maye Bunting on 03-21-2022 Schistocytes LM Ql (Bld) Slight [facility] Segmented neutrophils/100 WB C Manual cnt (Bld)Ordered By: Maye Bunting on 03-21-2022 Segmented neutrophils/100 WBC (Bld) 56 % 50-70 [facility] Spherocytes [Presence] in Bl ood by Light microscopyOrdered By: Maye Bunting on 03-21-2022 Spherocytes LM Ql (Bld) Slight [facility] Target cellsOrdered By: Aiden in Bunting on 03-21-2022 Target cells LM Ql (Bld) Slight [facility] WBC Auto (Bld) [#/Vol]Ordere d By: Maye Bunting on 03-21-2022 WBC (Bld) [#/Vol] 11.1 10*3/uL 4.1-10.5 [facility] US renal BIon 03-14-2022 US renal BI Normal [facility] Anisocytosis LM Ql (Bld)Orde red By: Maye Bunting on 03-08-2022 Anisocytosis Ql (Bld) Moderate [facility] Basophils Auto (Bld) [#/Vol] Ordered By: Maye Bunting on 03-08-2022 Basophils (Bld) [#/Vol] N/A [facility] Basophils/100 WBC Auto (Bld) Ordered By: Maye Bunting on 03-08-2022 Basophils/100 WBC (Bld) N/A [facility] Basophils/100 WBC Manual cnt (Bld)Ordered By: Maye Bunrina on 03-08-2022 Basophils/100 WBC (Bld) 0 % 0-2 [facility] Diff and CBCon 03-08-2022 Additional Comments Normal [facility] Comment on above: Result Comment: prew armed sample due to MCV > 37. 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 Performed By: #### D IFF CBC ####[address] [address] [facility] Anisocytosis Ql (Bld) Moderate Normal [facility] Comment on above: Performed By: #### D IFF CBC ####[address] [address] [facility] Basophils/100 WBC (Bld) 0 % Normal 0-2 [facility] Comment on above: Performed By: #### D IFF CBC ####[address] [address] [facility] Eosinophils/100 WBC (Bld) 2 % Normal 1-3 [facility] Comment on above: Performed By: #### D IFF CBC ####[address] [address] [facility] Erythrocyte distribution width (RBC) [Ratio] 18.4 % High 12.0-14.8 [facility] Comment on above: Performed By: #### D IFF CBC ####[address] [address] [facility] Hematocrit (Bld) [Volume fraction] 27.5 % Low 38.8-50.0 [facility] Comment on above: Performed By: #### D IFF CBC ####[address] [address] [facility] Hemoglobin (Bld) [Mass/Vol] 8.6 g/dL Low 13.0-17.0 [facility] Comment on above: Performed By: #### D IFF CBC ####[address] Hypochromasia Slight Normal [facility] Comment on above: Performed By: #### D IFF CBC ####[address] Lymphocytes/100 WBC (Bld) 37 % Normal 18-42 [facility] Comment on above: Performed By: #### D IFF CBC ####[address] MCH (RBC) [Entitic mass] 28.3 pg Normal 27.5-35.2 [facility] Comment on above: Performed By: #### D IFF CBC ####[address] MCV (RBC) [Entitic vol] 90.5 fL Normal 83.5-101 [facility] Comment on above: Performed By: #### D IFF CBC ####[address] Mean Corpuscular HGB Conc 31.3 g/dL Low 32.5-35.6 [facility] Comment on above: Performed By: #### D IFF CBC ####[address] Monocytes/100 WBC (Bld) 8 % Normal 2-11 [facility] Comment on above: Performed By: #### D IFF CBC ####[place] [id number] [facility] Nucleated Red Blood Cell 0 /100{WBC} Normal 0-0 [facility] Comment on above: Performed By: #### D IFF CBC ####[place] [id number] [facility] Platelet Estimate Normal Normal Normal [facility] Comment on above: Performed By: #### D IFF CBC ####[address] [place] [address] [facility] Platelet mean volume (Bld) [Entitic vol] 9.7 fL Normal 6.6-10.1 [facility] Comment on above: Result Comment: PERF ORMED BY:[address] [address] [place], [place] [phone] MEDICAL DIRECTORCHRISTO PINO M.D. Performed By: #### D IFF CBC ####[address] [address] [facility] Platelet Morphology Normal Normal Normal [facility] Comment on above: Performed By: #### D IFF CBC ####[address] [address] [facility] Platelets (Bld) [#/Vol] 184 10*3/uL Normal 150-450 [facility] Comment on above: Performed By: #### D IFF CBC ####[address] [address] [facility] Poikilocytosis Moderate Normal [facility] Comment on above: Performed By: #### D IFF CBC ####[address] [address] [facility] RBC (Bld) [#/Vol] 3.04 10*6/uL Low 3.90-5.60 [facility] Comment on above: Performed By: #### D IFF CBC ####[address] [address] [facility] Schistocytes Slight Normal [facility] Comment on above: Performed By: #### D IFF CBC ####[address] [address] [facility] Segmented neutrophils/100 WBC (Bld) 53 % Normal 50-70 [facility] Comment on above: Performed By: #### D IFF CBC ####[address] [address] [facility] Smudge Cells Slight Normal [facility] Comment on above: Performed By: #### D IFF CBC ####[address] [place] [address] [facility] Spherocytes Slight Normal [facility] Comment on above: Performed By: #### D IFF CBC ####[facility] [place] [id number] [facility] Target Cells Slight Normal [facility] Comment on above: Performed By: #### D IFF CBC ####[facility] [id number] Tear Drop Cells Slight Normal [facility] Comment on above: Performed By: #### D IFF CBC ####[facility] [place] [id number] [facility] WBC (Bld) [#/Vol] 11.4 10*3/uL High 4.1-10.5 [facility] Comment on above: Performed By: #### D IFF CBC ####[place] [address] Eosinophils Auto (Bld) [#/Vo l]Ordered By: Maye Bunting on 03-08-2022 Eosinophils (Bld) [#/Vol] N/A [facility] Eosinophils/100 WBC Auto (Bl d)Ordered By: Maye Bunting on 03-08-2022 Eosinophils/100 WBC (Bld) N/A [facility] Eosinophils/100 WBC Manual c nt (Bld)Ordered By: Maye Bunting on 03-08-2022 Eosinophils/100 WBC (Bld) 2 % 1-3 [facility] Erythrocyte distribution wid th Auto (RBC) [Ratio]Ordered By: Maye Bunting on 03-08-2022 Erythrocyte distribution width (RBC) [Ratio] 18.4 % 12.0-14.8 [facility] Hematocrit Auto (Bld) [Volum e fraction]Ordered By: Maye Bunting on 03-08-2022 Hematocrit (Bld) [Volume fraction] 27.5 % 38.8-50.0 [facility] Hemoglobin [Mass/volume] in BloodOrdered By: Maye Bunting on 03-08-2022 Hemoglobin (Bld) [Mass/Vol] 8.6 g/dL 13.0-17.0 [facility] Hypochromia LM Ql (Bld)Order ed By: Maye Bunting on 03-08-2022 Hypochromia Ql (Bld) Slight [facility] Leukocytes [#/volume] correc lakesha for nucleated erythrocytes in Blood by Automated counOrdered By: Maye Bunting on 03-08-2022 WBC corrected for nucl RBC Auto (Bld) [#/Vol] 11.4 10*3/uL 4.1-10.5 [facility] Lymphocytes Auto (Bld) [#/Vo l]Ordered By: Maye Bunting on 03-08-2022 Lymphocytes (Bld) [#/Vol] N/A [facility] Lymphocytes/100 WBC Auto (Bl d)Ordered By: Maye Bunting on 03-08-2022 Lymphocytes/100 WBC (Bld) N/A [facility] Lymphocytes/100 WBC Manual c nt (Bld)Ordered By: Maye Bunting on 03-08-2022 Lymphocytes/100 WBC (Bld) 37 % 18-42 [facility] MCH Auto (RBC) [Entitic mass ]Ordered By: Maye Bunting on 03-08-2022 MCH (RBC) [Entitic mass] 28.3 pg 27.5-35.2 [facility] MCHC Auto (RBC) [Mass/Vol]Or dered By: Maye Bunting on 03-08-2022 MCHC (RBC) [Mass/Vol] 31.3 g/dL 32.5-35.6 [facility] MCV Auto (RBC) [Entitic vol] Ordered By: Maye Bunting on 03-08-2022 MCV (RBC) [Entitic vol] 90.5 fL 83.5-101 [facility] Monocytes Auto (Bld) [#/Vol] Ordered By: Maye Bunting on 03-08-2022 Monocytes (Bld) [#/Vol] N/A [facility] Monocytes/100 WBC Auto (Bld) Ordered By: Maye Bunting on 03-08-2022 Monocytes/100 WBC (Bld) N/A [facility] Monocytes/100 WBC Manual cnt (Bld)Ordered By: Maye Bunting on 03-08-2022 Monocytes/100 WBC (Bld) 8 % 2-11 [facility] Neutrophils Auto (Bld) [#/Vo l]Ordered By: Maye Bunting on 03-08-2022 Neutrophils (Bld) [#/Vol] N/A [facility] Neutrophils/100 WBC Auto (Bl d)Ordered By: Maye Bunting on 03-08-2022 Neutrophils/100 WBC (Bld) N/A [facility] No Panel InformationOrdered By: Maye Bunting on 03-08-2022 CBC Comment See comment [facility] Comment on above: prewarmed sample due to MCV > 37. 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 Nucleated RBC/100 WBC Manual cnt (Bld) [Ratio]Ordered By: Maye Bunting on 03-08-2022 Nucleated RBC/100 WBC (Bld) [Ratio] 0 /100{WBC} 0-0 [facility] Nucleated erythrocytes [Pres ence] in Blood by Automated countOrdered By: Maye Bunting on 03-08-2022 Nucleated RBC Auto Ql (Bld) N/A [facility] Platelet adequacy [Presence] in Blood by Light microscopyOrdered By: Maye Bunting on 03-08-2022 Platelets LM Ql (Bld) Normal Normal [facility] Platelet mean volume Auto (B ld) [Entitic vol]Ordered By: Maye Bunting on 03-08-2022 Platelet mean volume (Bld) [Entitic vol] 9.7 fL 6.6-10.1 [facility] Platelet morphology finding [Identifier] in BloodOrdered By: Maye Bunting on 03-08-2022 Platelet morphology finding Nom (Bld) Normal Normal [facility] Platelets Auto (Bld) [#/Vol] Ordered By: Maye Bunting on 03-08-2022 Platelets (Bld) [#/Vol] 184 10*3/uL 150-450 [facility] Poikilocytosis [Presence] in Blood by Light microscopyOrdered By: Maye Bunting on 03-08-2022 Poikilocytosis LM Ql (Bld) Moderate [facility] RBC Auto (Bld) [#/Vol]Ordere d By: Maye Bunting on 03-08-2022 RBC (Bld) [#/Vol] 3.04 10*6/uL 3.90-5.60 [facility] RBC morphologyOrdered By: Da rrin Bunting on 03-08-2022 RBC morphology finding Nom (Bld) N/A [facility] Schistocytes [Presence] in B lood by Light microscopyOrdered By: Maye Bunting on 03-08-2022 Schistocytes LM Ql (Bld) [facility] Segmented neutrophils/100 WB C Manual cnt (Bld)Ordered By: Maye Bunting on 03-08-2022 Segmented neutrophils/100 WBC (Bld) 53 % 50-70 [facility] Smudge cell detectionOrdered By: Maye Bunting on 03-08-2022 Smudge cells LM Ql (Bld) [facility] Spherocytes [Presence] in Bl ood by Light microscopyOrdered By: Maye Bunting on 03-08-2022 Spherocytes LM Ql (Bld) Slight [facility] Target cellsOrdered By: Aiden in Bunting on 03-08-2022 Target cells LM Ql (Bld) [facility] Teardrop cell detectionOrder ed By: Maye Bunting on 03-08-2022 Dacrocytes LM Ql (Bld) [facility] WBC Auto (Bld) [#/Vol]Ordere d By: Maye Bunting on 03-08-2022 WBC (Bld) [#/Vol] 11.4 10*3/uL 4.1-10.5 [facility] NM mateo perf SPECT rest stron 03-06-2022 NM mateo perf SPECT rest str Normal [facility] No Panel Informationon 03-[address] [facility] peña 250 DO Work Phone: ECH echo transthoracicon ECH echo transthoracic Normal [facility] No Panel Informationon 03-05 [facility] DO Work Phone: 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 You may also call [phone]-NOW for free resources and assistance.; Status:Complete - [...] to this provider. He resides in a long term, and has multiple cardiac risk factors including [...] very limited gets around in a wheelchair, long term resident. He is status post left transmetatarsal amputation, and his right foot is bandaged completely, for a nonhealing ulcer, which has been there for about 4 to 5 months. Followed by wound nurse once a week at the long term. Continues to smoke. EKG today normal sinus rhythm [address] interval 180 ms QRS duration 112 ms [...] left atr (more content not included)... Normal [employer] Basic Metabolic Panelon 10-0 Anion gap [Moles/Vol] 19.1 mmol/L High 6.0-15.0 [facility] Comment on above: Performed By: #### B MP ####[address] [place] [address] [facility] Calcium [Mass/Vol] 8.8 mg/dL Normal 8.2-10.2 [facility] Comment on above: Result Comment: PERF ORMED BY:[address] [place], [place] [phone] MEDICAL DIRECTORCHRISTO PINO M.D. Performed By: #### B MP ####[facility] [place] [address] [facility] Chloride [Moles/Vol] 102 mmol/L Normal 95-114 [facility] Comment on above: Performed By: #### B MP ####[facility] [place] [address] [facility] CO2 [Moles/Vol] 23.3 mmol/L Normal 22.0-30.0 [facility] Comment on above: Performed By: #### B MP ####[facility] [place] [id number] [facility] Creatinine [Mass/Vol] 3.84 mg/dL High 0.64-1.27 [facility] Comment on above: Performed By: #### B MP ####[place] [id number] [facility] Estimated GFR ( Cristo 19 [facility] Comment on above: Result Comment: GFR estimated reference range: According to KDOQI guidelines, <60 ml/min/1.73m2 is sufficient to diagnose a patient with chronic kidney disease. Performed By: #### B MP ####[place] [id number] [facility] Estimated GFR (Non- Am 16 [facility] Comment on above: Performed By: #### B MP ####[place] [id number] [facility] Glucose [Mass/Vol] 105 mg/dL High 70-100 [facility] Comment on above: Result Comment: [place] Glucose Reference Range is dependent on time and content of last meal. Glucose of more than 200 mg/dL in a nonstressed, ambulatory subject supports the diagnosis of Diabetes Mellitus. ADA recommended reference range Performed By: #### B MP ####[place] [id number] [facility] Potassium [Moles/Vol] 5.4 mmol/L High 3.5-5.1 [facility] Comment on above: Performed By: #### B MP ####[place] [id number] [facility] Sodium [Moles/Vol] 139 mmol/L Normal 136-146 [facility] Comment on above: Performed By: #### B MP ####[place] [id number] [facility] Urea nitrogen [Mass/Vol] 57 mg/dL High 9-23 [facility] Comment on above: Performed By: #### B MP ####[place] [id number] [facility] Basophils Auto (Bld) [#/Vol] Ordered By: Kiko Corbett on 01-11-2022 Basophils (Bld) [#/Vol] N/A [facility] Basophils/100 WBC Auto (Bld) Ordered By: Kiko Corbett on 01-11-2022 Basophils/100 WBC (Bld) N/A [facility] Blood anisocytosis detection Ordered By: Kiko Corbett on 01-11-2022 Anisocytosis Ql (Bld) Moderate [facility] Blood hemoglobin measurement (mass/volume)Ordered By: Kiko Corbett on 01-11-2022 Hemoglobin (Bld) [Mass/Vol] 10.1 g/dL 13.0-17.0 [facility] Blood leukocytes automated c ount (number/volume)Ordered By: Kiko Corbett on 01-11-2022 WBC (Bld) [#/Vol] 12.7 10*3/uL 4.5-11.0 [facility] COVID-19 FRMCon 01-11-2022 SARS-CoV-2 (COVID-19) RNA JAYMIE+probe Ql (Unsp spec) Negative Normal Negative [facility] Comment on above: Order Comment: 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 This test has not been FDA cleared [...] the authorization is terminated or revoked sooner.PERFORMED BY:[facility] [place], [place] [phone] MEDICAL DIRECTORCHRISTO PINO M.D. Performed By: #### C OVID 19 [facility] ####[facility] [id number] [place] [id number] [facility] COVID-19 Positive/NegativeOr dered By: Kiko Corbett on 01-11-2022 SARS-CoV-2 (COVID-19) N gene JAYMIE+probe Ql (Resp) Negative Negative [facility] Comment on above: Testing for SARS-CoV -2 by RT-PCRThis test was developed and its performance characteristics determined by [employer] and validated at the [facility]. This test has not been FDA cleared [...] on 01-11-2022 Creatinine [Mass/Vol] 3.84 mg/dL 0.64-1.27 [facility] Diff and CBCon 01-11-2022 Anisocytosis Ql (Bld) Moderate Normal [facility] Comment on above: Performed By: #### D IFF CBC ####[address] [place] [id number] [facility] Eosinophils/100 WBC (Bld) 2 % Normal 1-3 [facility] Comment on above: Performed By: #### D IFF CBC ####[place] [address] Erythrocyte distribution width (RBC) [Ratio] 20.5 % High 12.0-14.8 [facility] Comment on above: Performed By: #### D IFF CBC ####[place] [id number] [facility] Hematocrit (Bld) [Volume fraction] 31.7 % Low 38.8-50.0 [facility] Comment on above: Performed By: #### D IFF CBC ####[place] [id number] [facility] Hemoglobin (Bld) [Mass/Vol] 10.1 g/dL Low 13.0-17.0 [facility] Comment on above: Performed By: #### D IFF CBC ####[place] [address] [facility] Large Platelets Moderate Normal [facility] Comment on above: Result Comment: PERF ORMED BY:[address] [place], [place] [phone] MEDICAL DIRECTORCHRISTO PINO M.D. Performed By: #### D IFF CBC ####[place] [id number] [facility] Lymphocytes/100 WBC (Bld) 42 % Normal 18-42 [facility] Comment on above: Performed By: #### D IFF CBC ####[place] [id number] [facility] MCH (RBC) [Entitic mass] 28.0 pg Normal 27.5-35.2 [facility] Comment on above: Performed By: #### D IFF CBC ####[place] [id number] [facility] MCV (RBC) [Entitic vol] 87.9 fL Normal 83.5-101 F [facility] Comment on above: Performed By: #### D IFF CBC ####[place] [id number] [facility] Mean Corpuscular HGB Conc 31.9 g/dL Low 32.5-35.6 [facility] Comment on above: Performed By: #### D IFF CBC ####[facility] [place] [address] [facility] Monocytes/100 WBC (Bld) 10 % Normal 2-11 [facility] Comment on above: Performed By: #### D IFF CBC ####[address] [place] [address] [facility] Nucleated RBC/100 WBC (Bld) [Ratio] 0.1 % Normal 0-0.5 [facility] Comment on above: Performed By: #### D IFF CBC ####[address] [address] [facility] Platelet Estimate Normal Normal Normal [facility] Comment on above: Performed By: #### D IFF CBC ####[address] [address] [facility] Platelet mean volume (Bld) [Entitic vol] 10.4 fL High 6.6-10.1 [facility] Comment on above: Performed By: #### D IFF CBC ####[address] [address] [facility] Platelets (Bld) [#/Vol] 225 10*3/uL Normal 150-450 [facility] Comment on above: Performed By: #### D IFF CBC ####[address] [address] [facility] Poikilocytosis Moderate Normal [facility] Comment on above: Performed By: #### D IFF CBC ####[address] [address] [facility] RBC (Bld) [#/Vol] 3.60 10*6/uL Low 3.90-5.60 [facility] Comment on above: Performed By: #### D IFF CBC ####[address] [address] [facility] Schistocytes Slight Normal [facility] Comment on above: Performed By: #### D IFF CBC ####[address] [address] [facility] Segmented neutrophils/100 WBC (Bld) 46 % Low 50-70 [facility] Comment on above: Performed By: #### D IFF CBC ####[facility] [id number] Target Cells Marked Normal [facility] Comment on above: Performed By: #### D IFF CBC ####[facility] [id number] [place] [id number] [facility] WBC (Bld) [#/Vol] 12.7 10*3/uL High 4.5-11.0 [facility] Comment on above: Performed By: #### D IFF CBC ####[facility] [id number] [place] [id number] [facility] ECG 12 lead ECGon 01-11-2022 ECG 12 lead ECG Normal [facility] Eosinophils Auto (Bld) [#/Vo l]Ordered By: Kiko Corbett on 01-11-2022 Eosinophils (Bld) [#/Vol] N/A [facility] Eosinophils/100 WBC Auto (Bl d)Ordered By: Kiko Corbett on 01-11-2022 Eosinophils/100 WBC (Bld) N/A [facility] Erythrocyte distribution wid th Auto (RBC) [Ratio]Ordered By: Kiko Corbett on 01-11-2022 Erythrocyte distribution width (RBC) [Ratio] 20.5 % 12.0-14.8 [facility] Estimated glomerular filtrat ion rate (GFR) non- AmericanOrdered By: Kiko Corbett on 01-11-2022 GFR/1.73 sq M.predicted among non-blacks MDRD (S/P/Bld) [Vol rate/Area] 16 mL/Min [facility] Hematocrit Auto (Bld) [Volum e fraction]Ordered By: Kiko Corbett on 01-11-2022 Hematocrit (Bld) [Volume fraction] 31.7 % 38.8-50.0 [facility] Laboratory - Hematology and Cell countsOrdered By: Kiko Corbett on 01-11-2022 Nucleated RBC/100 WBC (Bld) [Ratio] 0.1 % 0-0.5 [facility] Lymphocytes Auto (Bld) [#/Vo l]Ordered By: Kiko Corbett on 01-11-2022 Lymphocytes (Bld) [#/Vol] N/A [facility] Lymphocytes/100 WBC Auto (Bl d)Ordered By: Kiko Corbett on 01-11-2022 Lymphocytes/100 WBC (Bld) N/A [facility] Lymphocytes/100 WBC (Bld) 42 % 18-42 [facility] MCH Auto (RBC) [Entitic mass ]Ordered By: Kiko Corbett on 01-11-2022 MCH (RBC) [Entitic mass] 28.0 pg 27.5-35.2 [facility] MCHC Auto (RBC) [Mass/Vol]Or dered By: Kiko Corbett on 01-11-2022 MCHC (RBC) [Mass/Vol] 31.9 g/dL 32.5-35.6 [facility] MCV Auto (RBC) [Entitic vol] Ordered By: Kiko Corbett on 01-11-2022 MCV (RBC) [Entitic vol] 87.9 fL 83.5-101 F [facility] Monocyte %Ordered By: Kiko Corbett on 01-11-2022 Monocytes/100 WBC (Bld) 2 % 1-3 [facility] Monocytes Auto (Bld) [#/Vol] Ordered By: Kiko Corbett on 01-11-2022 Monocytes (Bld) [#/Vol] N/A [facility] Monocytes/100 WBC Auto (Bld) Ordered By: Kiko Corbett on 01-11-2022 Monocytes/100 WBC (Bld) N/A [facility] Monocytes/100 WBC Manual cnt (Bld)Ordered By: Kiko Corbett on 01-11-2022 Monocytes/100 WBC (Bld) 10 % 2-11 [facility] Neutrophils Auto (Bld) [#/Vo l]Ordered By: Kiko Corbett on 01-11-2022 Neutrophils (Bld) [#/Vol] N/A [facility] Neutrophils/100 WBC Auto (Bl d)Ordered By: iKko Corbett on 01-11-2022 Neutrophils/100 WBC (Bld) N/A [facility] No Panel InformationOrdered By: Kiko Corbett on 01-11-2022 Estimated GFR () 19 mL/Min [facility] Comment on above: GFR estimated refere nce range: According to KDOQI guidelines, <60 ml/min/1.73m2 is sufficient to diagnose a patient with chronic kidney disease. Large Platelets Moderate [facility] Pharmacy Creatinine Clearance (Chem N/A [facility] Platelet Estimate Normal Normal [facility] Platelet Morphology Comment N/A [facility] Poikilocytosis Moderate [facility] Schistocytes Slight [facility] Platelet mean volume Auto (B ld) [Entitic vol]Ordered By: Kiko Corbett on 01-11-2022 Platelet mean volume (Bld) [Entitic vol] 10.4 fL 6.6-10.1 [facility] Platelets Auto (Bld) [#/Vol] Ordered By: Kiko Corbett on 01-11-2022 Platelets (Bld) [#/Vol] 225 10*3/uL 150-450 [facility] RBC Auto (Bld) [#/Vol]Ordere d By: Kiko Corbett on 01-11-2022 RBC (Bld) [#/Vol] 3.60 10*6/uL 3.90-5.60 [facility] RBC morphologyOrdered By: Duane Corbett on 01-11-2022 RBC morphology finding Nom (Bld) N/A [facility] Segmented neutrophils/100 WB C Manual cnt (Bld)Ordered By: Kiko Corbett on 01-11-2022 Segmented neutrophils/100 WBC (Bld) 46 % 50-70 [facility] Serum or plasma anion gap de terminationOrdered By: Kiko Corbett on 01-11-2022 Anion gap [Moles/Vol] 19.1 mmol/L 6.0-15.0 [facility] Serum or plasma calcium blaire urement (mass/volume)Ordered By: Kiko Corbett on 01-11-2022 Calcium [Mass/Vol] 8.8 mg/dL 8.2-10.2 [facility] Serum or plasma chloride melany surement (moles/volume)Ordered By: Kiko Corbett on 01-11-2022 Chloride [Moles/Vol] 102 mmol/L 95-114 [facility] Serum or plasma glucose blaire urement (mass/volume)Ordered By: Kiko Corbett on 01-11-2022 Glucose [Mass/Vol] 105 mg/dL 70-100 [facility] Comment on above: ADA recommended refe rence rangeRandom Glucose Reference Range is dependent on time and content of last meal. Glucose of more than 200 mg/dL in a nonstressed, ambulatory subject supports the diagnosis of Diabetes Mellitus. Serum or plasma potassium me asurement (moles/volume)Ordered By: Kiko Corbett on 01-11-2022 Potassium [Moles/Vol] 5.4 mmol/L 3.5-5.1 [facility] Serum or plasma sodium measu rement (moles/volume)Ordered By: Kiko Corbett on 01-11-2022 Sodium [Moles/Vol] 139 mmol/L 136-146 [facility] Serum or plasma total carbon dioxide measurement (moles/volume)Ordered By: Kiko Corbett on 01-11-2022 CO2 [Moles/Vol] 23.3 mmol/L 22.0-30.0 [facility] Serum or plasma urea nitroge n measurement (mass/volume)Ordered By: Kiko Corbett on 01-11-2022 Urea nitrogen [Mass/Vol] 57 mg/dL 9-23 [facility] Target cellsOrdered By: Ni Corbett on 01-11-2022 Target cells LM Ql (Bld) Marked [facility] Albumin [Mass/volume] in Ser um or PlasmaOrdered By: Jose M Landry on 12-05-2021 Albumin [Mass/Vol] 2.5 g/dL 3.2-5.5 [facility] Basophils Auto (Bld) [#/Vol] Ordered By: Jose M Landry on 12-05-2021 Basophils (Bld) [#/Vol] 0.2 10*3/uL 0.0-0.2 [facility] Basophils/100 WBC Auto (Bld) Ordered By: Jose M Landry on 12-05-2021 Basophils/100 WBC (Bld) 1.3 % . [facility] Blood anisocytosis detection Ordered By: Jose M Landry on 12-05-2021 Anisocytosis Ql (Bld) Moderate [facility] Blood hemoglobin measurement (mass/volume)Ordered By: Jose M Landry on 12-05-2021 Hemoglobin (Bld) [Mass/Vol] 9.7 g/dL 13.0-17.0 [facility] Blood leukocytes automated c ount (number/volume)Ordered By: Jose M Landry on 12-05-2021 WBC (Bld) [#/Vol] 14.0 10*3/uL 4.1-10.5 [facility] CT biopsyOrdered By: Jose M Landry on 12-05-2021 CT biopsy 235 mg/dL 180-380 [facility] Transferrin [Mass/Vol] 235 mg/dL 180-380 [facility] Comprehensive Metabolic Pane fidel 12-05-2021 Albumin [Mass/Vol] 2.5 g/dL Low 3.2-5.5 [facility] Comment on above: Performed By: #### C MP ####[address] Albumin/Globulin [Mass ratio] 0.4 {ratio} Normal [facility] Comment on above: Performed By: #### C MP ####[place] [id number] [facility] ALP [Catalytic activity/Vol] 184 U/L High 32-92 [facility] Comment on above: Performed By: #### C MP ####[place] [id number] [facility] ALT [Catalytic activity/Vol] 17 U/L Normal 10-60 [facility] Comment on above: Performed By: #### C MP ####[place] [id number] [facility] Anion gap [Moles/Vol] 16.4 mmol/L High 6.0-15.0 [facility] Comment on above: Performed By: #### C MP ####[place] [id number] [facility] AST [Catalytic activity/Vol] 30 U/L Normal 10-42 [facility] Comment on above: Performed By: #### C MP ####[facility] [place] [address] [facility] Bilirubin [Mass/Vol] 0.6 mg/dL Normal 0.3-1.2 [facility] Comment on above: Performed By: #### C MP ####[facility] [place] [address] [facility] Calcium [Mass/Vol] 8.5 mg/dL Normal 8.2-10.2 [facility] Comment on above: Performed By: #### C MP ####[address] [address] [facility] Chloride [Moles/Vol] 109 mmol/L Normal 95-114 [facility] Comment on above: Performed By: #### C MP ####[address] [address] [facility] CO2 [Moles/Vol] 19.0 mmol/L Low 22.0-30.0 [facility] Comment on above: Performed By: #### C MP ####[address] [address] [facility] Creatinine [Mass/Vol] 3.38 mg/dL High 0.64-1.27 [facility] Comment on above: Performed By: #### C MP ####[place] [place] [address] [facility] Creatinine Clr Calc Pharmacy 26.43 [facility] Comment on above: Result Comment: PERF ORMED BY:[place] [address] [place], [place] [phone] MEDICAL DIRECTORCHRISTO PINO M.D. Performed By: #### C MP ####[address] [address] [facility] Estimated GFR ( Cristo 22 Normal [facility] Comment on above: Result Comment: GFR estimated reference range: According to KDOQI guidelines, <60 ml/min/1.73m2 is sufficient to diagnose a patient with chronic kidney disease. Performed By: #### C MP ####[address] [address] [facility] Estimated GFR (Non- Am 18 Normal [facility] Comment on above: Performed By: #### C MP ####[address] [address] [facility] Globulin (S) [Mass/Vol] 7.0 g/dL Normal [facility] Comment on above: Performed By: #### C MP ####[address] [address] [facility] Glucose [Mass/Vol] 101 mg/dL High 70-100 [facility] Comment on above: Result Comment: [facility] Glucose Reference Range is dependent on time and content of last meal. Glucose of more than 200 mg/dL in a nonstressed, ambulatory subject supports the diagnosis of Diabetes Mellitus. ADA recommended reference range Performed By: #### C MP ####[address] [address] [facility] Potassium [Moles/Vol] 5.4 mmol/L High 3.5-5.1 [facility] Comment on above: Performed By: #### C MP ####[address] [address] [facility] Protein [Mass/Vol] 9.5 g/dL High 6.1-7.9 [facility] Comment on above: Performed By: #### C MP ####[address] [address] [facility] Sodium [Moles/Vol] 139 mmol/L Normal 136-146 [facility] Comment on above: Performed By: #### C MP ####[address] [address] [facility] Urea nitrogen [Mass/Vol] 37 mg/dL High 9-23 [facility] Comment on above: Performed By: #### C MP ####[place] [id number] [facility] Creatinine and Glomerular fi ltration rate.predicted panel (S/P/Bld)Ordered By: Jose M Landry on 12-05-2021 Creatinine [Mass/Vol] 3.38 mg/dL 0.64-1.27 [facility] Eosinophils Auto (Bld) [#/Vo l]Ordered By: Jose M Landry on 12-05-2021 Eosinophils (Bld) [#/Vol] 0.5 10*3/uL 0.0-0.45 [facility] Eosinophils/100 WBC Auto (Bl d)Ordered By: Jose M Landry on 12-05-2021 Eosinophils/100 WBC (Bld) 3.4 % . [facility] Erythrocyte distribution wid th Auto (RBC) [Ratio]Ordered By: Jose M Landry on 12-05-2021 Erythrocyte distribution width (RBC) [Ratio] 17.7 % 12.0-14.8 [facility] Estimated glomerular filtrat ion rate (GFR) non- AmericanOrdered By: Jose M Landry on 12-05-2021 GFR/1.73 sq M.predicted among non-blacks MDRD (S/P/Bld) [Vol rate/Area] 18 mL/Min [facility] Ferritinon 12-05-2021 Ferritin [Mass/Vol] 52.5 ng/mL Normal 23.9-336.2 [facility] Comment on above: Performed By: #### F E and TIBC, OKSANA, SCAN CBC, [id number] ####[facility] [id number] [place] [id number] [facility]#### METH ####[facility] , Ferritin [Mass/volume] in Se rum or PlasmaOrdered By: Jose M Landry on 12-05-2021 Ferritin [Mass/Vol] 52.5 ng/mL 23.9-336.2 [facility] Folate [Mass/volume] in Seru m or PlasmaOrdered By: Jose M Landry on 12-05-2021 Folate [Mass/Vol] ng/mL >5.9 [facility] Comment on above: Folate reference ran ge: >5.9 ng/ml The WHO technical consultation on folate and vitamin b12 deficiencies has determined that folate concentrations less than 4 ng/ml are considered deficient. Folate reference ran ge: >5.9 ng/mlThe WHO technical consultation on folate and vitamin [id number] has determined that folate concentrations lessthan 4 ng/ml are considered deficient. Globulin Calc (S) [Mass/Vol] Ordered By: Jose M Landry on 12-05-2021 Globulin (S) [Mass/Vol] 7.0 g/dL [facility] Hematocrit Auto (Bld) [Volum e fraction]Ordered By: Jose M Landry on 12-05-2021 Hematocrit (Bld) [Volume fraction] 31.2 % 38.8-50.0 [facility] Comment on above: Delta: 21.4 on 12/04 Hypochromia detectionOrdered By: Jose M Landry on 12-05-2021 Hypochromia Ql (Bld) Slight [facility] Iron [Mass/volume] in Serum or PlasmaOrdered By: Jose M Landry on 12-05-2021 Iron [Mass/Vol] 93 ug/dL 40-160 [facility] Iron and TIBC Profileon 11-07 % Iron Saturation 28.0 % Normal 20-50 [facility] Comment on above: Performed By: #### F E and TIBC, OKSANA, SCAN CBC, [id number] ####[address]#### METH ####[facility] , Iron [Mass/Vol] 93 ug/dL Normal 40-160 [facility] Comment on above: Performed By: #### F E and TIBC, OKSANA, SCAN CBC, [id number] ####[facility] [place] [address] [place]#### METH ####[facility] , Total Iron Binding Capacity 329 ug/dL Normal 255-450 [facility] Comment on above: Performed By: #### F E and TIBC, OKSANA, SCAN CBC, [id number] ####[facility] [place] [address] [place]#### METH ####[facility] , Transferrin [Mass/Vol] 235 mg/dL Normal 180-380 [facility] Comment on above: Performed By: #### F E and TIBC, OKSANA, SCAN CBC, [id number] ####[facility] [id number] [place] [id number] [facility]#### METH ####[facility] , Iron binding capacity [Mass/ volume] in Serum or PlasmaOrdered By: Jose M Landry on 12-05-2021 Iron binding capacity [Mass/Vol] 329 ug/dL 255-450 [facility] Iron saturation [Mass Fracti on] in Serum or PlasmaOrdered By: Jose M Landry on 12-05-2021 Iron saturation [Mass fraction] 28.0 % 20-50 [facility] Laboratory - Chemistry and C hemistry - challengeOrdered By: Jose M Landry on 12-05-2021 Cobalamin (Vitamin B12) [Mass/Vol] 6328 pg/mL 180-914 [facility] Laboratory - Hematology and Cell countsOrdered By: Jose M Landry on 12-05-2021 Nucleated RBC/100 WBC (Bld) [Ratio] 0.5 % 0-0.5 [facility] LeukoReduced RBCon 2 LeukoReduced RBC TRANSFUSED 12/05/21 0245 Normal [facility] Lymphocytes Auto (Bld) [#/Vo l]Ordered By: Jose M Landry on 12-05-2021 Lymphocytes (Bld) [#/Vol] 6.2 10*3/uL 1.00-4.8 [facility] Lymphocytes/100 WBC Auto (Bl d)Ordered By: Jose M Landry on 12-05-2021 Lymphocytes/100 WBC (Bld) 44.4 % . [facility] MCH Auto (RBC) [Entitic mass ]Ordered By: Jose M Landry on 12-05-2021 MCH (RBC) [Entitic mass] 27.3 pg 27.5-35.2 [facility] MCHC Auto (RBC) [Mass/Vol]Or dered By: Jose M Landry on 12-05-2021 MCHC (RBC) [Mass/Vol] 31.2 g/dL 32.5-35.6 [facility] MCV Auto (RBC) [Entitic vol] Ordered By: Jose M Landry on 12-05-2021 MCV (RBC) [Entitic vol] 87.4 fL 83.5-101 [facility] Macrocytes detectionOrdered By: Jose M Landry on 12-05-2021 Macrocytes Ql (Bld) Slight [facility] Methylmalonic Acidon 022 Methylmalonic Acid 388 High 0-378 [facility] Comment on above: Result Comment: This test was developed and its performance characteristics determined by [facility]. It has not been cleared or approved by the Food and Drug Administration. Performed at: - [facility] [id number] [address] Operator: Fabienne Harmon MD, Phone: [phone] BY:[facility] [place], [place] [phone] MEDICAL DIRECTORCHRISTO PINO M.D. Performed By: #### F E and TIBC, OKSANA, SCAN CBC, [id number] ####[facility] [id number] [place] [address] [facility]#### METH ####[facility] , Monocytes Auto (Bld) [#/Vol] Ordered By: Jose M Landry on 12-05-2021 Monocytes (Bld) [#/Vol] 0.8 10*3/uL 0.0-0.8 [facility] Monocytes/100 WBC Auto (Bld) Ordered By: Jose M Landry on 12-05-2021 Monocytes/100 WBC (Bld) 5.5 % . [facility] Neutrophils Auto (Bld) [#/Vo l]Ordered By: Jose M Landry on 12-05-2021 Neutrophils (Bld) [#/Vol] 6.3 10*3/uL 1.8-7.7 [facility] Neutrophils/100 WBC Auto (Bl d)Ordered By: Jose M Landry on 12-05-2021 Neutrophils/100 WBC (Bld) 45.4 % . [facility] No Panel InformationOrdered By: Jose M Landry on 12-05-2021 Estimated GFR () 22 mL/Min [facility] Comment on above: GFR estimated refere nce range: According to KDOQI guidelines, <60 ml/min/1.73m2 is sufficient to diagnose a patient with chronic kidney disease. Microcytosis Slight [facility] Pharmacy Creatinine Clearance (Chem 26.43 [facility] Platelet Estimate Normal Normal [facility] Platelet Morphology Comment Normal Normal [facility] 14.0 10*3/uL 4.5-11.0 [facility] 0.5 % 0-0.5 [facility] Slight [facility] Normal Normal [facility] 22 mL/Min [facility] 6328 pg/mL 180-914 [facility] 26.43 [facility] Platelet mean volume Auto (B ld) [Entitic vol]Ordered By: Jose M Landry on 12-05-2021 Platelet mean volume (Bld) [Entitic vol] 10.8 fL 6.6-10.1 [facility] Platelets Auto (Bld) [#/Vol] Ordered By: Jose M Landry on 12-05-2021 Platelets (Bld) [#/Vol] 379 10*3/uL 150-450 [facility] Protein [Mass/volume] in Ser um or PlasmaOrdered By: Jose M Landry on 12-05-2021 Protein [Mass/Vol] 9.5 g/dL 6.1-7.9 [facility] Comment on above: Delta: 7.9 on RBC Auto (Bld) [#/Vol]Ordere d By: Jose M Landry on 12-05-2021 RBC (Bld) [#/Vol] 3.57 10*6/uL 3.90-5.60 [facility] RBC morphologyOrdered By: Delmer Landry on 12-05-2021 RBC morphology finding Nom (Bld) N/A [facility] Scan and CBCon 12-05-2021 Anisocytosis Ql (Bld) Moderate Normal [facility] Comment on above: Performed By: #### F E and TIBC, OKSANA, SCAN CBC, [id number] ####[address]#### METH ####[facility] , Basophils (Bld) [#/Vol] 0.2 10*3/uL Normal 0.0-0.2 [facility] Comment on above: Performed By: #### F E and TIBC, OKSANA, SCAN CBC, [id number] ####[address]#### METH ####[facility] , Basophils/100 WBC (Bld) 1.3 % Normal . [facility] Comment on above: Performed By: #### F E and TIBC, OKSANA, SCAN CBC, [id number] ####[address]#### METH ####[facility] , Eosinophils (Bld) [#/Vol] 0.5 10*3/uL High 0.0-0.45 [facility] Comment on above: Performed By: #### F E and TIBC, OKSANA, SCAN CBC, [id number] ####[address]#### METH ####[facility] , Eosinophils/100 WBC (Bld) 3.4 % Normal . [facility] Comment on above: Performed By: #### F E and TIBC, OKSANA, SCAN CBC, [id number] ####[place] [address] [place]#### METH ####[facility] , Erythrocyte distribution width (RBC) [Ratio] 17.7 % High 12.0-14.8 [facility] Comment on above: Performed By: #### F E and TIBC, OKSANA, SCAN CBC, [id number] ####[place] [address] [place]#### METH ####[facility] , Hematocrit (Bld) [Volume fraction] 31.2 % Significant change down 38.8-50.0 [facility] Comment on above: Performed By: #### F E and TIBC, OKSANA, SCAN CBC, [id number] ####[address]#### METH ####[facility] , Hemoglobin (Bld) [Mass/Vol] 9.7 g/dL Low 13.0-17.0 [facility] Comment on above: Performed By: #### F E and TIBC, OKSANA, SCAN CBC, [id number] ####[address]#### METH ####[facility] , Hypochromasia Slight Normal [facility] Comment on above: Performed By: #### F E and TIBC, OKSANA, SCAN CBC, [id number] ####[address]#### METH ####[facility] , Lymphocytes (Bld) [#/Vol] 6.2 10*3/uL High 1.00-4.8 [facility] Comment on above: Performed By: #### F E and TIBC, OKSANA, SCAN CBC, [id number] ####[place] [address] [place]#### METH ####[facility] , Lymphocytes/100 WBC (Bld) 44.4 % Normal . [facility] Comment on above: Performed By: #### F E and TIBC, OKSANA, SCAN CBC, [id number] ####[place] [address] [place]#### METH ####[facility] , Macrocytosis Slight Normal [facility] Comment on above: Performed By: #### F E and TIBC, OKSANA, SCAN CBC, [id number] ####[address]#### METH ####[facility] , MCH (RBC) [Entitic mass] 27.3 pg Low 27.5-35.2 [facility] Comment on above: Performed By: #### F E and TIBC, OKSANA, SCAN CBC, [id number] ####[address]#### METH ####[facility] , MCV (RBC) [Entitic vol] 87.4 fL Normal 83.5-101 [facility] Comment on above: Performed By: #### F E and TIBC, OKSANA, SCAN CBC, [id number] ####[address]#### METH ####[facility] , Mean Corpuscular HGB Conc 31.2 g/dL Low 32.5-35.6 [facility] Comment on above: Performed By: #### F E and TIBC, OKSANA, SCAN CBC, [id number] ####[address]#### METH ####[facility] , Microcytosis Slight Normal [facility] Comment on above: Performed By: #### F E and TIBC, OKSANA, SCAN CBC, [id number] ####[address]#### METH ####[facility] , Monocytes (Bld) [#/Vol] 0.8 10*3/uL Normal 0.0-0.8 [facility] Comment on above: Performed By: #### F E and TIBC, OKSANA, SCAN CBC, [id number] ####[place] [address] [place]#### METH ####[facility] , Monocytes/100 WBC (Bld) 5.5 % Normal . [facility] Comment on above: Performed By: #### F E and TIBC, OKSANA, SCAN CBC, [id number] ####[address]#### METH ####[facility] , Neutrophils (Bld) [#/Vol] 6.3 10*3/uL Normal 1.8-7.7 [facility] Comment on above: Performed By: #### F E and TIBC, OKSANA, SCAN CBC, [id number] ####[address]#### METH ####[facility] , Neutrophils/100 WBC (Bld) 45.4 % Normal . [facility] Comment on above: Performed By: #### F E and TIBC, OKSANA, SCAN CBC, [id number] ####[address]#### METH ####[facility] , Nucleated RBC/100 WBC (Bld) [Ratio] 0.5 % Normal 0-0.5 [facility] Comment on above: Performed By: #### F E and TIBC, OKSANA, SCAN CBC, [id number] ####[place] [address] [place]#### METH ####[facility] , Platelet Estimate Normal Normal Normal [facility] Comment on above: Performed By: #### F E and TIBC, OKSANA, SCAN CBC, [id number] ####[place] [address] [place]#### METH ####[facility] , Platelet mean volume (Bld) [Entitic vol] 10.8 fL High 6.6-10.1 [facility] Comment on above: Performed By: #### F E and TIBC, OKSANA, SCAN CBC, [id number] ####[address]#### METH ####[facility] , Platelet Morphology Normal Normal Normal [facility] Comment on above: Result Comment: PERF ORMED BY:[address] [place], [place] [phone] MEDICAL DIRECTORCHRISTO PINO M.D. Performed By: #### F E and TIBC, OKSANA, SCAN CBC, [id number] ####[address]#### METH ####[facility] , Platelets (Bld) [#/Vol] 379 10*3/uL Normal 150-450 [facility] Comment on above: Performed By: #### F E and TIBC, OKSANA, SCAN CBC, [id number] ####[address]#### METH ####[facility] , RBC (Bld) [#/Vol] 3.57 10*6/uL Low 3.90-5.60 [facility] Comment on above: Performed By: #### F E and TIBC, OKSANA, SCAN CBC, [id number] ####[address]#### METH ####[facility] , Target Cells Slight Normal [facility] Comment on above: Performed By: #### F E and TIBC, OKSANA, SCAN CBC, [id number] ####[place] [address] [place]#### METH ####[facility] , WBC (Bld) [#/Vol] 14.0 10*3/uL High 4.5-11.0 [facility] Comment on above: Performed By: #### F E and TIBC, OKSANA, SCAN CBC, [id number] ####[facility] [address]#### METH ####[facility] , Serum or plasma alanine coy otransferase measurement without P-5'-P (enzymatic activiOrdered By: Jose M Landry on 12-05-2021 ALT No additional P-5'-P [Catalytic activity/Vol] 17 U/L 10-60 [facility] Serum or plasma albumin/glob ulin mass ratioOrdered By: Jose M Landry on 12-05-2021 Albumin/Globulin [Mass ratio] 0.4 {ratio} [facility] Serum or plasma alkaline perico sphatase measurement (enzymatic activity/volume)Ordered By: Jose M Landry on 12-05-2021 ALP [Catalytic activity/Vol] 184 U/L 32-92 [facility] Serum or plasma anion gap de terminationOrdered By: Jose M Landry on 12-05-2021 Anion gap [Moles/Vol] 16.4 mmol/L 6.0-15.0 [facility] Serum or plasma aspartate am inotransferase measurement (enzymatic activity/volume)Ordered By: Jose M Landry on 12-05-2021 AST [Catalytic activity/Vol] 30 U/L 10-42 [facility] Serum or plasma calcium blaire urement (mass/volume)Ordered By: Jose M Landry on 12-05-2021 Calcium [Mass/Vol] 8.5 mg/dL 8.2-10.2 [facility] Serum or plasma chloride melany surement (moles/volume)Ordered By: Jose M Landry on 12-05-2021 Chloride [Moles/Vol] 109 mmol/L 95-114 [facility] Serum or plasma creatinine m easurement with calculation of estimated glomerular filtrOrdered By: Jose M Landry on 12-05-2021 Creatinine and Glomerular filtration rate.predicted panel (S/P/Bld) 3.38 mg/dL 0.64-1.27 [facility] Serum or plasma glucose blaire urement (mass/volume)Ordered By: Jose M Landry on 12-05-2021 Glucose [Mass/Vol] 101 mg/dL 70-100 [facility] Comment on above: ADA recommended refe [...] on 12-05-2021 Methylmalonate [Moles/Vol] 388 nmol/L 0-378 [facility] Comment on above: This test was develo ped and its performance characteristicsdetermined by [employer]. It has not been cleared orapproved by the Food and Drug Administration.Performed at: [address] [id number] Director: Fabienne Harmon MD, Phone: [phone] Serum or plasma potassium me asurement (moles/volume)Ordered By: Jose M Landry on 12-05-2021 Potassium [Moles/Vol] 5.4 mmol/L 3.5-5.1 [facility] Serum or plasma sodium measu rement (moles/volume)Ordered By: Jose M Landry on 12-05-2021 Sodium [Moles/Vol] 139 mmol/L 136-146 [facility] Serum or plasma total biliru bin measurement (mass/volume)Ordered By: Jose M Landry on 12-05-2021 Bilirubin [Mass/Vol] 0.6 mg/dL 0.3-1.2 [facility] Serum or plasma total carbon dioxide measurement (moles/volume)Ordered By: Jose M Landry on 12-05-2021 CO2 [Moles/Vol] 19.0 mmol/L 22.0-30.0 [facility] Serum or plasma urea nitroge n measurement (mass/volume)Ordered By: Jose M Landry on 12-05-2021 Urea nitrogen [Mass/Vol] 37 mg/dL 9-23 [facility] Target cellsOrdered By: Vivek Landry on 12-05-2021 Target cells LM Ql (Bld) Slight [facility] Type and Screenon 12-05-2021 ABO and Rh group Nom (Bld) Blood group O Rh(D) positive Normal [facility] Comment on above: Order Comment: Numbe r of units to transfuse now? 2 US renal BIon 12-05-2021 US renal BI Normal [facility] Vit. B12/Folate Profileon Cobalamin (Vitamin B12) [Mass/Vol] 6328 pg/mL High 180-914 [facility] Comment on above: Performed By: #### F E and TIBC, OKSANA, SCAN CBC, [id number] ####[facility] [id number]#### METH ####[facility] , Folate > 22.3 Normal >5.9 [facility] Comment on above: Result Comment: Yessenia te reference range: >5.9 ng/ml The WHO technical consultation on folate and vitamin b12 deficiencies has determined that folate concentrations less than 4 ng/ml are considered deficient.PERFORMED BY:[address] [place], [place] [phone] MEDICAL DIRECTORCHRISTO PINO M.D. Performed By: #### F E and TIBC, OKSANA, SCAN CBC, [id number] ####[facility] [id number]#### METH ####[facility] , Activated partial thrombopla stin time (aPTT) in platelet poor plasma by coagulation aOrdered By: Ramakrishna Sandoval on 12-04-2021 aPTT Coag (PPP) [Time] 34.5 s 25.1-36.5 [facility] Albumin [Mass/volume] in Ser um or PlasmaOrdered By: Ramakrishna Sandoval on 12-04-2021 Albumin [Mass/Vol] 2.1 g/dL 3.2-5.5 [facility] Basophils Auto (Bld) [#/Vol] Ordered By: Ramakrishna Sandoval on 12-04-2021 Basophils (Bld) [#/Vol] 0.1 10*3/uL 0.0-0.2 [facility] Basophils/100 WBC Auto (Bld) Ordered By: Ramakrishna Sandoval on 12-04-2021 Basophils/100 WBC (Bld) 0.6 % . [facility] Blood anisocytosis detection Ordered By: Ramakrishna Sandoval on 12-04-2021 Anisocytosis Ql (Bld) Moderate [facility] Blood hemoglobin measurement (mass/volume)Ordered By: Ramakrishna Sandoval on 12-04-2021 Hemoglobin (Bld) [Mass/Vol] 6.6 g/dL 13.0-17.0 [facility] Blood leukocytes automated c ount (number/volume)Ordered By: Ramakrishna Sandoval on 12-04-2021 WBC (Bld) [#/Vol] 12.2 10*3/uL 4.5-11.0 [facility] Blood polychromasia detectio n by light microscopyOrdered By: Ramakrishna Sandoval on 12-04-2021 Polychromasia LM Ql (Bld) Moderate [facility] Comprehensive Metabolic Pane fidel 12-04-2021 Albumin [Mass/Vol] 2.1 g/dL Low 3.2-5.5 [facility] Comment on above: Performed By: #### P TT, PT, SCAN CBC, CMP ####[facility] [id number] [place] [id number] [facility] Albumin/Globulin [Mass ratio] 0.4 {ratio} Normal [facility] Comment on above: Performed By: #### P TT, PT, SCAN CBC, CMP ####[facility] [id number] [place] [address] [facility] ALP [Catalytic activity/Vol] 144 U/L High 32-92 [facility] Comment on above: Performed By: #### P TT, PT, SCAN CBC, CMP ####[facility] [id number] [place] [address] [facility] ALT [Catalytic activity/Vol] 17 U/L Normal 10-60 [facility] Comment on above: Performed By: #### P TT, PT, SCAN CBC, CMP ####[place] [address] [place] [address] [facility] Anion gap [Moles/Vol] 13.1 mmol/L Normal 6.0-15.0 [facility] Comment on above: Performed By: #### P TT, PT, SCAN CBC, CMP ####[address] [address] [facility] AST [Catalytic activity/Vol] 29 U/L Normal 10-42 [facility] Comment on above: Performed By: #### P TT, PT, SCAN CBC, CMP ####[address] [address] [facility] Bilirubin [Mass/Vol] 0.4 mg/dL Normal 0.3-1.2 [facility] Comment on above: Performed By: #### P TT, PT, SCAN CBC, CMP ####[place] [id number] [facility] Calcium [Mass/Vol] 7.9 mg/dL Low 8.2-10.2 [facility] Comment on above: Performed By: #### P TT, PT, SCAN CBC, CMP ####[place] [id number] [facility] Chloride [Moles/Vol] 108 mmol/L Normal 95-114 [facility] Comment on above: Performed By: #### P TT, PT, SCAN CBC, CMP ####[place] [id number] [facility] CO2 [Moles/Vol] 19.2 mmol/L Low 22.0-30.0 [facility] Comment on above: Performed By: #### P TT, PT, SCAN CBC, CMP ####[place] [id number] [facility] Creatinine [Mass/Vol] 3.40 mg/dL High 0.64-1.27 [facility] Comment on above: Performed By: #### P TT, PT, SCAN CBC, CMP ####[place] [id number] [facility] Creatinine Clr Calc Pharmacy 26.43 Normal [facility] Comment on above: Result Comment: PERF ORMED BY:[address] [place], [place] [phone] MEDICAL DIRECTORCHRISTO PINO M.D. Performed By: #### P TT, PT, SCAN CBC, CMP ####[address] [place] [address] [facility] Estimated GFR ( Cristo 22 [facility] Comment on above: Result Comment: GFR estimated reference range: According to KDOQI guidelines, <60 ml/min/1.73m2 is sufficient to diagnose a patient with chronic kidney disease. Performed By: #### P TT, PT, SCAN CBC, CMP ####[address] [address] [facility] Estimated GFR (Non- Am 18 [facility] Comment on above: Performed By: #### P TT, PT, SCAN CBC, CMP ####[address] [address] [facility] Globulin (S) [Mass/Vol] 5.8 g/dL Normal [facility] Comment on above: Performed By: #### P TT, PT, SCAN CBC, CMP ####[address] [address] [facility] Glucose [Mass/Vol] 115 mg/dL High 70-100 [facility] Comment on above: Result Comment: [place] Glucose Reference Range is dependent on time and content of last meal. Glucose of more than 200 mg/dL in a nonstressed, ambulatory subject supports the diagnosis of Diabetes Mellitus. ADA recommended reference range Performed By: #### P TT, PT, SCAN CBC, CMP ####[address] [address] [facility] Potassium [Moles/Vol] 4.3 mmol/L Normal 3.5-5.1 [facility] Comment on above: Performed By: #### P TT, PT, SCAN CBC, CMP ####[address] [address] [facility] Protein [Mass/Vol] 7.9 g/dL Normal 6.1-7.9 [facility] Comment on above: Performed By: #### P TT, PT, SCAN CBC, CMP ####[facility] [id number] Sodium [Moles/Vol] 136 mmol/L Normal 136-146 [facility] Comment on above: Performed By: #### P TT, PT, SCAN CBC, CMP ####[facility] [id number] [address] Urea nitrogen [Mass/Vol] 38 mg/dL High 9-23 [facility] Comment on above: Performed By: #### P TT, PT, SCAN CBC, CMP ####[facility] Jay[address] Creatinine and Glomerular fi ltration rate.predicted panel (S/P/Bld)Ordered By: Ramakrishna Sandoval on 12-04-2021 Creatinine [Mass/Vol] 3.40 mg/dL 0.64-1.27 [facility] Eosinophils Auto (Bld) [#/Vo l]Ordered By: Ramakrishna Sandoval on 12-04-2021 Eosinophils (Bld) [#/Vol] 0.6 10*3/uL 0.0-0.45 [facility] Eosinophils/100 WBC Auto (Bl d)Ordered By: Ramakrishna Sandoval on 12-04-2021 Eosinophils/100 WBC (Bld) 5.1 % . [facility] Erythrocyte distribution wid th Auto (RBC) [Ratio]Ordered By: Ramakrishna Sandoval on 12-04-2021 Erythrocyte distribution width (RBC) [Ratio] 18.6 % 12.0-14.8 [facility] Estimated glomerular filtrat ion rate (GFR) non- AmericanOrdered By: Ramakrishna Sandoval on 12-04-2021 GFR/1.73 sq M.predicted among non-blacks MDRD (S/P/Bld) [Vol rate/Area] 18 mL/Min [facility] Globulin Calc (S) [Mass/Vol] Ordered By: Ramakrishna Sandoval on 12-04-2021 Globulin (S) [Mass/Vol] 5.8 g/dL [facility] Hematocrit Auto (Bld) [Volum e fraction]Ordered By: Ramakrishna Sandoval on 12-04-2021 Hematocrit (Bld) [Volume fraction] 21.4 % 38.8-50.0 [facility] Laboratory - CoagulationOrde red By: Ramakrishna Sandoval on 12-04-2021 PT Coag (PPP) [Time] 13.4 s 9.0-12.9 [facility] Laboratory - Hematology and Cell countsOrdered By: Ramakrishna Sandoval on 12-04-2021 Nucleated RBC/100 WBC (Bld) [Ratio] 0.3 % 0-0.5 [facility] Lymphocytes Auto (Bld) [#/Vo l]Ordered By: Ramakrishna Sandoval on 12-04-2021 Lymphocytes (Bld) [#/Vol] 4.7 10*3/uL 1.00-4.8 [facility] Lymphocytes/100 WBC Auto (Bl d)Ordered By: Ramakrishna Sandoval on 12-04-2021 Lymphocytes/100 WBC (Bld) 38.1 % . [facility] MCH Auto (RBC) [Entitic mass ]Ordered By: Ramakrishna Sandoval on 12-04-2021 MCH (RBC) [Entitic mass] 26.6 pg 27.5-35.2 [facility] MCHC Auto (RBC) [Mass/Vol]Or dered By: Ramakrishna Sandoval on 12-04-2021 MCHC (RBC) [Mass/Vol] 30.7 g/dL 32.5-35.6 [facility] MCV Auto (RBC) [Entitic vol] Ordered By: Ramakrishna Sandoval on 12-04-2021 MCV (RBC) [Entitic vol] 86.5 fL 83.5-101 [facility] Monocytes Auto (Bld) [#/Vol] Ordered By: Ramakrishna Sandoval on 12-04-2021 Monocytes (Bld) [#/Vol] 1.4 10*3/uL 0.0-0.8 [facility] Monocytes/100 WBC Auto (Bld) Ordered By: Ramakrishna Sandoval on 12-04-2021 Monocytes/100 WBC (Bld) 11.2 % . [facility] Neutrophils Auto (Bld) [#/Vo l]Ordered By: Ramakrishna Sandoval on 12-04-2021 Neutrophils (Bld) [#/Vol] 5.5 10*3/uL 1.8-7.7 [facility] Neutrophils/100 WBC Auto (Bl d)Ordered By: Ramakrishna Sandoval on 12-04-2021 Neutrophils/100 WBC (Bld) 45.0 % . [facility] No Panel InformationOrdered By: Ramakrishna Sandoval on 12-04-2021 Estimated GFR () 22 mL/Min [facility] Comment on above: GFR estimated refere nce range: According to KDOQI guidelines, <60 ml/min/1.73m2 is sufficient to diagnose a patient with chronic kidney disease. Pharmacy Creatinine Clearance (Chem 26.43 [facility] Platelet Estimate Normal Normal [facility] Platelet Morphology Comment Normal Normal [facility] Poikilocytosis Moderate [facility] Schistocytes Rare [facility] Partial Thromboplastin Timeo n 12-04-2021 aPTT Coag (Bld) [Time] 34.5 s Normal 25.1-36.5 [facility] Comment on above: Result Comment: PERF ORMED BY:[facility] [place], [place] [phone] MEDICAL DIRECTORCHRISTO PNIO M.D. Performed By: #### P TT, PT, SCAN CBC, CMP ####[facility] [place] [address] [facility] Platelet mean volume Auto (B ld) [Entitic vol]Ordered By: Ramakrishna Sandoval on 12-04-2021 Platelet mean volume (Bld) [Entitic vol] 10.1 fL 6.6-10.1 [facility] Platelet poor plasma interna tional normalized ratio (INR) by coagulation assay (relatOrdered By: Ramakrishna Sandoval on 12-04-2021 INR Coag (PPP) [Relative time] 1.2 {INR} [facility] Comment on above: INR Therapeutic Rang e [...] 12-04-2021 Platelets (Bld) [#/Vol] 337 10*3/uL 150-450 [facility] Protein [Mass/volume] in Ser um or PlasmaOrdered By: Ramakrishna Sandoval on 12-04-2021 Protein [Mass/Vol] 7.9 g/dL 6.1-7.9 [facility] Prothrombin Time INRon 12-04 INR Coag (PPP) [Relative time] 1.2 {INR} Normal [facility] Comment on above: Result Comment: INR Therapeutic [...] #### P TT, PT, SCAN CBC, CMP ####[facility] [id number] PT Coag (PPP) [Time] 13.4 s High 9.0-12.9 [facility] Comment on above: Performed By: #### P TT, PT, SCAN CBC, CMP ####[facility] [id number] RBC Auto (Bld) [#/Vol]Ordere d By: Ramakrishna Sandoval on 12-04-2021 RBC (Bld) [#/Vol] 2.48 10*6/uL 3.90-5.60 [facility] RBC morphologyOrdered By: Hero Sandoval on 12-04-2021 RBC morphology finding Nom (Bld) N/A [facility] Scan and CBCon 12-04-2021 Anisocytosis Ql (Bld) Moderate Normal [facility] Comment on above: Performed By: #### P TT, PT, SCAN CBC, CMP ####[address] Basophils (Bld) [#/Vol] 0.1 10*3/uL Normal 0.0-0.2 [facility] Comment on above: Performed By: #### P TT, PT, SCAN CBC, CMP ####[address] Basophils/100 WBC (Bld) 0.6 % Normal . [facility] Comment on above: Performed By: #### P TT, PT, SCAN CBC, CMP ####[address] Eosinophils (Bld) [#/Vol] 0.6 10*3/uL High 0.0-0.45 [facility] Comment on above: Performed By: #### P TT, PT, SCAN CBC, CMP ####[address] Eosinophils/100 WBC (Bld) 5.1 % Normal . [facility] Comment on above: Performed By: #### P TT, PT, SCAN CBC, CMP ####[address] Erythrocyte distribution width (RBC) [Ratio] 18.6 % High 12.0-14.8 [facility] Comment on above: Performed By: #### P TT, PT, SCAN CBC, CMP ####[place] [id number] [facility] Hematocrit (Bld) [Volume fraction] 21.4 % Low 38.8-50.0 [facility] Comment on above: Performed By: #### P TT, PT, SCAN CBC, CMP ####[place] [id number] [facility] Hemoglobin (Bld) [Mass/Vol] 6.6 g/dL Low 13.0-17.0 [facility] Comment on above: Performed By: #### P TT, PT, SCAN CBC, CMP ####[address] Lymphocytes (Bld) [#/Vol] 4.7 10*3/uL Normal 1.00-4.8 [facility] Comment on above: Performed By: #### P TT, PT, SCAN CBC, CMP ####[address] Lymphocytes/100 WBC (Bld) 38.1 % Normal . [facility] Comment on above: Performed By: #### P TT, PT, SCAN CBC, CMP ####[address] MCH (RBC) [Entitic mass] 26.6 pg Low 27.5-35.2 [facility] Comment on above: Performed By: #### P TT, PT, SCAN CBC, CMP ####[address] MCV (RBC) [Entitic vol] 86.5 fL Normal 83.5-101 [facility] Comment on above: Performed By: #### P TT, PT, SCAN CBC, CMP ####[address] Mean Corpuscular HGB Conc 30.7 g/dL Low 32.5-35.6 [facility] Comment on above: Performed By: #### P TT, PT, SCAN CBC, CMP ####[address] Monocytes (Bld) [#/Vol] 1.4 10*3/uL High 0.0-0.8 [facility] Comment on above: Performed By: #### P TT, PT, SCAN CBC, CMP ####[address] Monocytes/100 WBC (Bld) 11.2 % Normal . [facility] Comment on above: Performed By: #### P TT, PT, SCAN CBC, CMP ####[address] [place] [address] [facility] Neutrophils (Bld) [#/Vol] 5.5 10*3/uL Normal 1.8-7.7 [facility] Comment on above: Performed By: #### P TT, PT, SCAN CBC, CMP ####[address] [address] [facility] Neutrophils/100 WBC (Bld) 45.0 % Normal . [facility] Comment on above: Performed By: #### P TT, PT, SCAN CBC, CMP ####[address] [address] [facility] Nucleated RBC/100 WBC (Bld) [Ratio] 0.3 % Normal 0-0.5 [facility] Comment on above: Performed By: #### P TT, PT, SCAN CBC, CMP ####[address] [address] [facility] Platelet Estimate Normal Normal Normal [facility] Comment on above: Performed By: #### P TT, PT, SCAN CBC, CMP ####[address] [address] [facility] Platelet mean volume (Bld) [Entitic vol] 10.1 fL Normal 6.6-10.1 [facility] Comment on above: Performed By: #### P TT, PT, SCAN CBC, CMP ####[address] [address] [facility] Platelet Morphology Normal Normal Normal [facility] Comment on above: Result Comment: PERF ORMED BY:[address] [place], [place] [phone] MEDICAL MOOSE PINO M.D. Performed By: #### P TT, PT, SCAN CBC, CMP ####[address] [address] [facility] Platelets (Bld) [#/Vol] 337 10*3/uL Normal 150-450 [facility] Comment on above: Performed By: #### P TT, PT, SCAN CBC, CMP ####[address] Poikilocytosis Moderate Normal [facility] Comment on above: Performed By: #### P TT, PT, SCAN CBC, CMP ####[address] Polychromasia Moderate Normal [facility] Comment on above: Performed By: #### P TT, PT, SCAN CBC, CMP ####[address] RBC (Bld) [#/Vol] 2.48 10*6/uL Low 3.90-5.60 [facility] Comment on above: Performed By: #### P TT, PT, SCAN CBC, CMP ####[address] Schistocytes Rare Normal [facility] Comment on above: Performed By: #### P TT, PT, SCAN CBC, CMP ####[address] Target Cells Slight Normal [facility] Comment on above: Performed By: #### P TT, PT, SCAN CBC, CMP ####[address] WBC (Bld) [#/Vol] 12.2 10*3/uL High 4.5-11.0 [facility] Comment on above: Performed By: #### P TT, PT, SCAN CBC, CMP ####[address] Serum or plasma alanine coy otransferase measurement without P-5'-P (enzymatic activiOrdered By: Ramakrishna Sandoval on 12-04-2021 ALT No additional P-5'-P [Catalytic activity/Vol] 17 U/L [facility] Serum or plasma albumin/glob ulin mass ratioOrdered By: Ramakrishna Sandoval on 12-04-2021 Albumin/Globulin [Mass ratio] 0.4 {ratio} [facility] Serum or plasma alkaline perico sphatase measurement (enzymatic activity/volume)Ordered By: Ramakrishna Sandoval on 12-04-2021 ALP [Catalytic activity/Vol] 144 U/L 32-92 [facility] Serum or plasma anion gap de terminationOrdered By: Ramakrishna Sandoval on 12-04-2021 Anion gap [Moles/Vol] 13.1 mmol/L 6.0-15.0 [facility] Serum or plasma aspartate am inotransferase measurement (enzymatic activity/volume)Ordered By: Ramakrishna Sandoval on 12-04-2021 AST [Catalytic activity/Vol] 29 U/L 10-42 [facility] Serum or plasma calcium blaire urement (mass/volume)Ordered By: Ramakrishna Sandoval on 12-04-2021 Calcium [Mass/Vol] 7.9 mg/dL 8.2-10.2 [facility] Serum or plasma chloride melany surement (moles/volume)Ordered By: Ramakrishna Sandoval on 12-04-2021 Chloride [Moles/Vol] 108 mmol/L 95-114 [facility] Serum or plasma glucose blaire urement (mass/volume)Ordered By: Ramakrishna Sandoval on 12-04-2021 Glucose [Mass/Vol] 115 mg/dL 70-100 [facility] Comment on above: ADA recommended refe [...] on 12-04-2021 Potassium [Moles/Vol] 4.3 mmol/L 3.5-5.1 [facility] Serum or plasma sodium measu rement (moles/volume)Ordered By: Ramakrishna Sandoval on 12-04-2021 Sodium [Moles/Vol] 136 mmol/L 136-146 [facility] Serum or plasma total biliru bin measurement (mass/volume)Ordered By: Ramakrishna Sandoval on 12-04-2021 Bilirubin [Mass/Vol] 0.4 mg/dL 0.3-1.2 [facility] Serum or plasma total carbon dioxide measurement (moles/volume)Ordered By: Ramakrishna Sandoval on 12-04-2021 CO2 [Moles/Vol] 19.2 mmol/L 22.0-30.0 [facility] Serum or plasma urea nitroge n measurement (mass/volume)Ordered By: Ramakrishna Sandoval on 12-04-2021 Urea nitrogen [Mass/Vol] 38 mg/dL 12-28 [facility] Target cellsOrdered By: Parth Sandoval on 12-04-2021 Target cells LM Ql (Bld) Slight [facility] Basic Metabolic Panelon 11-05 Calcium [Mass/Vol] 8.1 mg/dL Low 8.2-10.2 [facility] Comment on above: Performed By: #### S CAN CBC, BMP ####[address] [address] [place] Chloride [Moles/Vol] 105 mmol/L Normal 95-114 [facility] Comment on above: Performed By: #### S CAN CBC, BMP ####[address] [place] [address] [facility] CO2 [Moles/Vol] 23.6 mmol/L Normal 22.0-30.0 [facility] Comment on above: Performed By: #### S CAN CBC, BMP ####[address] [place] [address] [facility] Creatinine [Mass/Vol] 3.41 mg/dL High 0.64-1.27 [facility] Comment on above: Performed By: #### S CAN CBC, BMP ####[address] [place] [address] [place] Creatinine Clr Calc Pharmacy 25.89 Normal [facility] Comment on above: Result Comment: PERF ORMED BY:[address] [place], [place] [phone] MEDICAL MOOSE PINO M.D. Performed By: #### S CAN CBC, BMP ####[place] [address] [place] [address] Estimated GFR ( Cristo 22 [facility] Comment on above: Result Comment: GFR estimated reference range: According to KDOQI guidelines, <60 ml/min/1.73m2 is sufficient to diagnose a patient with chronic kidney disease. Performed By: #### S CAN CBC, BMP ####[place] [address] Estimated GFR (Non- Am 18 [facility] Comment on above: Performed By: #### S CAN CBC, BMP ####[place] [address] Glucose [Mass/Vol] 104 mg/dL High 70-100 [facility] Comment on above: Result Comment: [place] Glucose Reference Range is dependent on time and content of last meal. Glucose of more than 200 mg/dL in a nonstressed, ambulatory subject supports the diagnosis of Diabetes Mellitus. ADA recommended reference range Performed By: #### S CAN CBC, BMP ####[address] Potassium [Moles/Vol] 3.8 mmol/L Normal 3.5-5.1 [facility] Comment on above: Performed By: #### S CAN CBC, BMP ####[address] Sodium [Moles/Vol] 138 mmol/L Normal 136-146 [facility] Comment on above: Performed By: #### S CAN CBC, BMP ####[address] Urea nitrogen [Mass/Vol] 45 mg/dL High 9-23 [facility] Comment on above: Performed By: #### S CAN CBC, BMP ####[address] Basophils Auto (Bld) [#/Vol] Ordered By: Chris Mccarthy on 11-21-2021 Basophils (Bld) [#/Vol] 0.2 10*3/uL 0.0-0.2 [facility] Basophils/100 WBC Auto (Bld) Ordered By: Chris Mccarthy on 11-21-2021 Basophils/100 WBC (Bld) 1.2 % . [facility] Blood anisocytosis detection Ordered By: Chris Mccarthy on 11-21-2021 Anisocytosis Ql (Bld) Slight [facility] Blood hemoglobin measurement (mass/volume)Ordered By: Chris Mccarthy on 11-21-2021 Hemoglobin (Bld) [Mass/Vol] 8.3 g/dL 13.0-17.0 [facility] Blood leukocytes automated c ount (number/volume)Ordered By: Chris Mccarthy on 11-21-2021 WBC (Bld) [#/Vol] 15.6 10*3/uL 4.5-11.0 [facility] Creatinine and Glomerular fi ltration rate.predicted panel (S/P/Bld)Ordered By: Chris Mccarthy on 11-21-2021 Creatinine [Mass/Vol] 3.41 mg/dL 0.64-1.27 [facility] Eosinophils Auto (Bld) [#/Vo l]Ordered By: Chris Mccarthy on 11-21-2021 Eosinophils (Bld) [#/Vol] 0.5 10*3/uL 0.0-0.45 [facility] Eosinophils/100 WBC Auto (Bl d)Ordered By: Chris Mccarthy on 11-21-2021 Eosinophils/100 WBC (Bld) 3.4 % . [facility] Erythrocyte distribution wid th Auto (RBC) [Ratio]Ordered By: Chris Mccarthy on 11-21-2021 Erythrocyte distribution width (RBC) [Ratio] 17.7 % 12.0-14.8 [facility] Estimated glomerular filtrat ion rate (GFR) non- AmericanOrdered By: Chris Mccarthy on 11-21-2021 GFR/1.73 sq M.predicted among non-blacks MDRD (S/P/Bld) [Vol rate/Area] 18 mL/Min [facility] Glucose Glucometer (BldC) [M ass/Vol]Ordered By: Landon Grullon on 11-21-2021 Glucose [Mass/Vol] 155 mg/dL [facility] Comment on above: Random Glucose Refer ence Range is dependent on time and content of last meal. Glucose of more than 200 mg/dL in a nonstressed, ambulatory subject supports the diagnosis of Diabetes Mellitus. Glucose Poct Glucometerson 0 11-21-2021 Glucose [Mass/Vol] 155 mg/dL Normal [facility] Comment on above: Result Comment: [place] om Glucose Reference Range is dependent on time and content of last meal. Glucose of more than 200 mg/dL in a nonstressed, ambulatory subject supports the diagnosis of Diabetes Mellitus.PERFORMED BY:[place] [address] [place], [place] [phone] MEDICAL DIRECTORCHRISTO PINO M.D. Performed By: #### G LULS ####Point of Care testing, Glucose [Mass/Vol] 160 mg/dL Normal [facility] Comment on above: Result Comment: [place] Glucose Reference Range is dependent on time and content of last meal. Glucose of more than 200 mg/dL in a nonstressed, ambulatory subject supports the diagnosis of Diabetes Mellitus.PERFORMED BY:[address] [place] [address] [place], [place] [phone] MEDICAL MOOSE PINO M.D. Performed By: #### G LULS ####Point of Care testing, Commemt1 Glu2: Cleaned Meter Normal [facility] Comment on above: Result Comment: PERF ORMED BY:[address] [address] [place] [place], [place] [phone] MEDICAL MOOSE PINO M.D. Performed By: #### G LULS ####Point of Care testing, Glucose [Mass/Vol] 110 mg/dL Normal [facility] Comment on above: Result Comment: [place] om Glucose Reference Range is dependent on time and content of last meal. Glucose of more than 200 mg/dL in a nonstressed, ambulatory subject supports the diagnosis of Diabetes Mellitus. Performed By: #### G LULS ####Point of Care testing, Hematocrit Auto (Bld) [Volum e fraction]Ordered By: Chris Mccarthy on 11-21-2021 Hematocrit (Bld) [Volume fraction] 25.9 % 38.8-50.0 [facility] Hypochromia detectionOrdered By: Chris Mccarthy on 11-21-2021 Hypochromia Ql (Bld) Slight [facility] Laboratory - Hematology and Cell countsOrdered By: Chris Mccarthy on 11-21-2021 Nucleated RBC/100 WBC (Bld) [Ratio] 0.1 % 0-0.5 [facility] Lymphocytes Auto (Bld) [#/Vo l]Ordered By: Chris Mccarthy on 11-21-2021 Lymphocytes (Bld) [#/Vol] 5.0 10*3/uL 1.00-4.8 [facility] Lymphocytes/100 WBC Auto (Bl d)Ordered By: Chris Mccarthy on 11-21-2021 Lymphocytes/100 WBC (Bld) 31.7 % . [facility] MCH Auto (RBC) [Entitic mass ]Ordered By: Chris Mccarthy on 11-21-2021 MCH (RBC) [Entitic mass] 27.0 pg 27.5-35.2 [facility] MCHC Auto (RBC) [Mass/Vol]Or dered By: Chris Mccarthy on 11-21-2021 MCHC (RBC) [Mass/Vol] 32.0 g/dL 32.5-35.6 [facility] MCV Auto (RBC) [Entitic vol] Ordered By: Chris Mccarthy on 11-21-2021 MCV (RBC) [Entitic vol] 84.4 fL 83.5-101 [facility] Monocytes Auto (Bld) [#/Vol] Ordered By: Chris Mccarthy on 11-21-2021 Monocytes (Bld) [#/Vol] 1.5 10*3/uL 0.0-0.8 [facility] Monocytes/100 WBC Auto (Bld) Ordered By: Chris Mccarthy on 11-21-2021 Monocytes/100 WBC (Bld) 9.6 % . [facility] Neutrophils Auto (Bld) [#/Vo l]Ordered By: Chris Mccarthy on 11-21-2021 Neutrophils (Bld) [#/Vol] 8.4 10*3/uL 1.8-7.7 [facility] Neutrophils/100 WBC Auto (Bl d)Ordered By: Chris Mccarthy on 11-21-2021 Neutrophils/100 WBC (Bld) 54.1 % . [facility] No Panel InformationOrdered By: Landon Grullon on 11-21-2021 Bedside Glucose Comment Glu2: cleaned meter [facility] No Panel InformationOrdered By: Chris Mccarthy on 11-21-2021 Estimated GFR () 22 mL/Min [facility] Comment on above: GFR estimated refere nce range: According to KDOQI guidelines, <60 ml/min/1.73m2 is sufficient to diagnose a patient with chronic kidney disease. Pharmacy Creatinine Clearance (Chem 25.89 [facility] Platelet Estimate Normal Normal [facility] Platelet Morphology Comment Normal Normal [facility] Schistocytes Slight [facility] Platelet mean volume Auto (B ld) [Entitic vol]Ordered By: Chris Mccarthy on 11-21-2021 Platelet mean volume (Bld) [Entitic vol] 10.6 fL 6.6-10.1 [facility] Platelets Auto (Bld) [#/Vol] Ordered By: Chris Mccarthy on 11-21-2021 Platelets (Bld) [#/Vol] 263 10*3/uL 150-450 [facility] RBC Auto (Bld) [#/Vol]Ordere d By: Chris Mccarthy on 11-21-2021 RBC (Bld) [#/Vol] 3.06 10*6/uL 3.90-5.60 [facility] RBC morphologyOrdered By: Liam Mccarthy on 11-21-2021 RBC morphology finding Nom (Bld) N/A [facility] Scan and CBCon 11-21-2021 Anisocytosis Ql (Bld) Slight Normal [facility] Comment on above: Performed By: #### S CAN CBC, BMP ####[address] Basophils (Bld) [#/Vol] 0.2 10*3/uL Normal 0.0-0.2 [facility] Comment on above: Performed By: #### S CAN CBC, BMP ####[address] Basophils/100 WBC (Bld) 1.2 % Normal . [facility] Comment on above: Performed By: #### S CAN CBC, BMP ####[address] Eosinophils (Bld) [#/Vol] 0.5 10*3/uL High 0.0-0.45 [facility] Comment on above: Performed By: #### S CAN CBC, BMP ####[address] Eosinophils/100 WBC (Bld) 3.4 % Normal . [facility] Comment on above: Performed By: #### S CAN CBC, BMP ####[address] Erythrocyte distribution width (RBC) [Ratio] 17.7 % High 12.0-14.8 [facility] Comment on above: Performed By: #### S CAN CBC, BMP ####[address] Hematocrit (Bld) [Volume fraction] 25.9 % Low 38.8-50.0 [facility] Comment on above: Performed By: #### S CAN CBC, BMP ####[address] Hemoglobin (Bld) [Mass/Vol] 8.3 g/dL Low 13.0-17.0 [facility] Comment on above: Performed By: #### S CAN CBC, BMP ####[address] Hypochromasia Slight Normal [facility] Comment on above: Performed By: #### S CAN CBC, BMP ####[address] Lymphocytes (Bld) [#/Vol] 5.0 10*3/uL High 1.00-4.8 [facility] Comment on above: Performed By: #### S CAN CBC, BMP ####[address] Lymphocytes/100 WBC (Bld) 31.7 % Normal . [facility] Comment on above: Performed By: #### S CAN CBC, BMP ####[address] MCH (RBC) [Entitic mass] 27.0 pg Low 27.5-35.2 [facility] Comment on above: Performed By: #### S CAN CBC, BMP ####[address] MCV (RBC) [Entitic vol] 84.4 fL Normal 83.5-101 F [facility] Comment on above: Performed By: #### S CAN CBC, BMP ####[address] Mean Corpuscular HGB Conc 32.0 g/dL Low 32.5-35.6 [facility] Comment on above: Performed By: #### S CAN CBC, BMP ####[address] Monocytes (Bld) [#/Vol] 1.5 10*3/uL High 0.0-0.8 [facility] Comment on above: Performed By: #### S CAN CBC, BMP ####[address] Monocytes/100 WBC (Bld) 9.6 % Normal . [facility] Comment on above: Performed By: #### S CAN CBC, BMP ####[address] Neutrophils (Bld) [#/Vol] 8.4 10*3/uL High 1.8-7.7 [facility] Comment on above: Performed By: #### S CAN CBC, BMP ####[address] [place] [address] [facility] Neutrophils/100 WBC (Bld) 54.1 % Normal . [facility] Comment on above: Performed By: #### S CAN CBC, BMP ####[address] [place] [address] [facility] Nucleated RBC/100 WBC (Bld) [Ratio] 0.1 % Normal 0-0.5 [facility] Comment on above: Performed By: #### S CAN CBC, BMP ####[address] [place] [address] [facility] Platelet Estimate Normal Normal Normal [facility] Comment on above: Performed By: #### S CAN CBC, BMP ####[address] [address] [facility] Platelet mean volume (Bld) [Entitic vol] 10.6 fL High 6.6-10.1 [facility] Comment on above: Performed By: #### S CAN CBC, BMP ####[address] [address] [facility] Platelet Morphology Normal Normal Normal [facility] Comment on above: Result Comment: PERF ORMED BY:[address] [place], [place] [phone] MEDICAL MOOSE PINO M.D. Performed By: #### S CAN CBC, BMP ####[address] [address] [facility] Platelets (Bld) [#/Vol] 263 10*3/uL Normal 150-450 [facility] Comment on above: Performed By: #### S CAN CBC, BMP ####[address] [address] [facility] RBC (Bld) [#/Vol] 3.06 10*6/uL Low 3.90-5.60 [facility] Comment on above: Performed By: #### S CAN CBC, BMP ####[facility] Pfz[address]62 [place] [address] [facility] Schistocytes Slight Normal [facility] Comment on above: Performed By: #### S CAN CBC, BMP ####[facility] [address] [place] [id number] [facility] Target Cells Moderate Normal [facility] Comment on above: Performed By: #### S CAN CBC, BMP ####[facility] T[address] [place] [id number] [facility] WBC (Bld) [#/Vol] 15.6 10*3/uL High 4.5-11.0 [facility] Comment on above: Performed By: #### S CAN CBC, BMP ####[facility] Xec[address] Serum or plasma calcium blaire urement (mass/volume)Ordered By: Chris Mccarthy on 11-21-2021 Calcium [Mass/Vol] 8.1 mg/dL 8.2-10.2 [facility] Serum or plasma chloride melany surement (moles/volume)Ordered By: Chris Mccarthy on 11-21-2021 Chloride [Moles/Vol] 105 mmol/L 95-114 [facility] Serum or plasma glucose blaire urement (mass/volume)Ordered By: Chris Mccarthy on 11-21-2021 Glucose [Mass/Vol] 104 mg/dL 70-100 [facility] Comment on above: ADA recommended refe [...] on 11-21-2021 Potassium [Moles/Vol] 3.8 mmol/L 3.5-5.1 [facility] Serum or plasma sodium measu rement (moles/volume)Ordered By: hCris Mccarthy on 11-21-2021 Sodium [Moles/Vol] 138 mmol/L 136-146 [facility] Serum or plasma total carbon dioxide measurement (moles/volume)Ordered By: Chris Mccarthy on 11-21-2021 CO2 [Moles/Vol] 23.6 mmol/L 22.0-30.0 [facility] Serum or plasma urea nitroge n measurement (mass/volume)Ordered By: Chris Mccarthy on 11-21-2021 Urea nitrogen [Mass/Vol] 45 mg/dL 12-28 [facility] Target cellsOrdered By: Arturo Mccarthy on 11-21-2021 Target cells LM Ql (Bld) Moderate [facility] XR chest 1V portableon 11-21 XR chest 1V portable Normal [facility] Activated partial thrombopla stin time (aPTT) in platelet poor plasma by coagulation aOrdered By: Riya Pitt on 11-20-2021 aPTT Coag (PPP) [Time] 34.2 s 25.1-36.5 [facility] Basic Metabolic Panelon 11-05 Calcium [Mass/Vol] 7.6 mg/dL Low 8.2-10.2 [facility] Comment on above: Performed By: #### B MP, SCAN CBC ####[facility] Kpb[address] [place] [address] [place] Chloride [Moles/Vol] 106 mmol/L Normal 95-114 [facility] Comment on above: Performed By: #### B MP, SCAN CBC ####[facility] Cua[address] [place] [address] [facility] CO2 [Moles/Vol] 22.7 mmol/L Normal 22.0-30.0 [facility] Comment on above: Performed By: #### B MP, SCAN CBC ####[facility] Gpm6505 [place] [address] [facility] Creatinine [Mass/Vol] 3.43 mg/dL High 0.64-1.27 [facility] Comment on above: Performed By: #### B MP, SCAN CBC ####[facility] [address] [place] [address] [place] Creatinine Clr Calc Pharmacy 25.89 [facility] Comment on above: Result Comment: PERF ORMED BY:[facility] [place], [place] [phone] MEDICAL MOOSE PINO M.D. Performed By: #### B MP, SCAN CBC ####[facility] Tcu[address]86 [place] [address] [facility] Estimated GFR ( Cristo 21 [facility] Comment on above: Result Comment: GFR estimated reference range: According to KDOQI guidelines, <60 ml/min/1.73m2 is sufficient to diagnose a patient with chronic kidney disease. Performed By: #### B MP, SCAN CBC ####[facility] Sml4868 [place] [address] [facility] Estimated GFR (Non- Am 18 [facility] Comment on above: Performed By: #### B MP, SCAN CBC ####[facility] Azo[address]36 [place] [address] [facility] Glucose [Mass/Vol] 106 mg/dL High 70-100 [facility] Comment on above: Result Comment: [place] Glucose Reference Range is dependent on time and content of last meal. Glucose of more than 200 mg/dL in a nonstressed, ambulatory subject supports the diagnosis of Diabetes Mellitus. ADA recommended reference range Performed By: #### B MP, SCAN CBC ####[facility] Raa4732 [place] [address] [facility] Potassium [Moles/Vol] 3.5 mmol/L Normal 3.5-5.1 [facility] Comment on above: Performed By: #### B MP, SCAN CBC ####[facility] Cwp1360 [place] [address] [facility] Sodium [Moles/Vol] 136 mmol/L Normal 136-146 [facility] Comment on above: Performed By: #### B MP, SCAN CBC ####[facility] Hie6764 [place] [address] [facility] Urea nitrogen [Mass/Vol] 41 mg/dL High 9-23 [facility] Comment on above: Performed By: #### B MP, SCAN CBC ####[place] [id number] [facility] Glucose Poct Glucometerson 0 11-20-2021 Commemt1 Glu2: Cleaned Meter Normal [facility] Comment on above: Result Comment: PERF ORMED BY:[address] [place]MA[place], [place] [phone] MEDICAL DIRECTORCHRISTO PINO M.D. Performed By: #### G LULS ####Point of Care testing, Glucose [Mass/Vol] 91 mg/dL Normal [facility] Comment on above: Result Comment: [place] Glucose Reference Range is dependent on time and content of last meal. Glucose of more than 200 mg/dL in a nonstressed, ambulatory subject supports the diagnosis of Diabetes Mellitus. Performed By: #### G LULS ####Point of Care testing, Glucose [Mass/Vol] 127 mg/dL Normal [facility] Comment on above: Result Comment: [place] om Glucose Reference Range is dependent on time and content of last meal. Glucose of more than 200 mg/dL in a nonstressed, ambulatory subject supports the diagnosis of Diabetes Mellitus.PERFORMED BY:[address] [place]TEJeanette[place], [place] [phone] MEDICAL MOOSE PINO M.D. Performed By: #### G LULS ####Point of Care testing, Glucose [Mass/Vol] 180 mg/dL Normal [facility] Comment on above: Result Comment: [place] Glucose Reference Range is dependent on time and content of last meal. Glucose of more than 200 mg/dL in a nonstressed, ambulatory subject supports the diagnosis of Diabetes Mellitus.PERFORMED BY:[address] [place], [place] [phone] MEDICAL DIRECTORCHRISTO PINO M.D. Performed By: #### G LULS ####Point of Care testing, Glucose [Mass/Vol] 120 mg/dL Normal [facility] Comment on above: Result Comment: [place] Glucose Reference Range is dependent on time and content of last meal. Glucose of more than 200 mg/dL in a nonstressed, ambulatory subject supports the diagnosis of Diabetes Mellitus.PERFORMED BY:[address] [place], [place] [phone] MEDICAL MOOSE PINO M.D. Performed By: #### G LULS ####Point of Care testing, Commemt1 Glu2: Cleaned Meter Normal [facility] Comment on above: Result Comment: PERF ORMED BY:[address] [place], [place] [phone] MEDICAL MOOSE PINO M.D. Performed By: #### G LULS ####Point of Care testing, Glucose [Mass/Vol] 128 mg/dL Normal [facility] Comment on above: Result Comment: [facility] Glucose Reference Range is dependent on time and content of last meal. Glucose of more than 200 mg/dL in a nonstressed, ambulatory subject supports the diagnosis of Diabetes Mellitus. Performed By: #### G LULS ####Point of Care testing, Laboratory - CoagulationOrde red By: Riya Pitt on 11-20-2021 PT Coag (PPP) [Time] 12.7 s 9.0-12.9 [facility] Partial Thromboplastin Timeo n 11-20-2021 aPTT Coag (Bld) [Time] 34.2 s Normal 25.1-36.5 [facility] Comment on above: Result Comment: PERF ORMED BY:[address] [place], [place] [phone] MEDICAL MOOSE PINO M.D. Performed By: #### P TT, PT ####[address] [place] [address] [facility] Platelet poor plasma interna tional normalized ratio (INR) by coagulation assay (relatOrdered By: Riya Pitt on 11-20-2021 INR Coag (PPP) [Relative time] 1.1 {INR} [facility] Comment on above: INR Therapeutic Rang e [...] Coag (PPP) [Relative time] 1.1 {INR} Normal [facility] Comment on above: Result Comment: INR Therapeutic [...] 4.5 Performed By: #### P TT, PT ####[facility] PT Coag (PPP) [Time] 12.7 s Normal 9.0-12.9 [facility] Comment on above: Performed By: #### P TT, PT ####[facility] Scan and CBCon 11-20-2021 Anisocytosis Ql (Bld) Moderate Normal [facility] Comment on above: Performed By: #### B MP, SCAN CBC ####[facility] Basophils (Bld) [#/Vol] 0.1 10*3/uL Normal 0.0-0.2 [facility] Comment on above: Performed By: #### B MP, SCAN CBC ####[facility] Puv8165 [place] [address] [place] Basophils/100 WBC (Bld) 0.8 % Normal . [facility] Comment on above: Performed By: #### B MP, SCAN CBC ####[facility] Kzw0506 [place] [address] [facility] Eosinophils (Bld) [#/Vol] 0.4 10*3/uL Normal 0.0-0.45 [facility] Comment on above: Performed By: #### B MP, SCAN CBC ####[facility] Rle[address]33 [place] [address] [facility] Eosinophils/100 WBC (Bld) 2.9 % Normal . [facility] Comment on above: Performed By: #### B MP, SCAN CBC ####[facility] Nze2796 [place] [address] [facility] Erythrocyte distribution width (RBC) [Ratio] 17.9 % High 12.0-14.8 [facility] Comment on above: Performed By: #### B MP, SCAN CBC ####[facility] Dxw[address] [place] [address] [facility] Hematocrit (Bld) [Volume fraction] 24.4 % Low 38.8-50.0 [facility] Comment on above: Performed By: #### B MP, SCAN CBC ####[facility] Ojp8578 [place] [address] [place] Hemoglobin (Bld) [Mass/Vol] 7.7 g/dL Low 13.0-17.0 [facility] Comment on above: Performed By: #### B MP, SCAN CBC ####[facility] Fvt9483 [place] [address] [place] Lymphocytes (Bld) [#/Vol] 5.6 10*3/uL High 1.00-4.8 [facility] Comment on above: Performed By: #### B MP, SCAN CBC ####[facility] Osw4328 [place] [address] [place] Lymphocytes/100 WBC (Bld) 38.6 % Normal . [facility] Comment on above: Performed By: #### B MP, SCAN CBC ####[address] MCH (RBC) [Entitic mass] 27.0 pg Low 27.5-35.2 [facility] Comment on above: Performed By: #### B MP, SCAN CBC ####[address] MCV (RBC) [Entitic vol] 85.5 fL Normal 83.5-101 F [facility] Comment on above: Performed By: #### B MP, SCAN CBC ####[address] Mean Corpuscular HGB Conc 31.5 g/dL Low 32.5-35.6 [facility] Comment on above: Performed By: #### B MP, SCAN CBC ####[address] Monocytes (Bld) [#/Vol] 1.3 10*3/uL High 0.0-0.8 [facility] Comment on above: Performed By: #### B MP, SCAN CBC ####[address] Monocytes/100 WBC (Bld) 8.6 % Normal . [facility] Comment on above: Performed By: #### B MP, SCAN CBC ####[address] Neutrophils (Bld) [#/Vol] 7.2 10*3/uL Normal 1.8-7.7 [facility] Comment on above: Performed By: #### B MP, SCAN CBC ####[address] Neutrophils/100 WBC (Bld) 49.1 % Normal . [facility] Comment on above: Performed By: #### B MP, SCAN CBC ####[place] [id number] [facility] Nucleated RBC/100 WBC (Bld) [Ratio] 0.2 % Normal 0-0.5 [facility] Comment on above: Performed By: #### B MP, SCAN CBC ####[address] [place] [address] [facility] Platelet Estimate Normal Normal Normal [facility] Comment on above: Performed By: #### B MP, SCAN CBC ####[address] [place] [address] [facility] Platelet mean volume (Bld) [Entitic vol] 9.7 fL Normal 6.6-10.1 [facility] Comment on above: Performed By: #### B MP, SCAN CBC ####[address] [place] [address] [facility] Platelet Morphology Normal Normal Normal [facility] Comment on above: Result Comment: PERF ORMED BY:[address] [place], [place] [phone] MEDICAL DIRECTORCHRISTO PINO M.D. Performed By: #### B MP, SCAN CBC ####[address] [address] [facility] Platelets (Bld) [#/Vol] 240 10*3/uL Normal 150-450 [facility] Comment on above: Performed By: #### B MP, SCAN CBC ####[address] [address] [facility] RBC (Bld) [#/Vol] 2.85 10*6/uL Low 3.90-5.60 [facility] Comment on above: Performed By: #### B MP, SCAN CBC ####[address] [address] [facility] Schistocytes Slight Normal [facility] Comment on above: Performed By: #### B MP, SCAN CBC ####[address] [address] [facility] Target Cells Moderate Normal [facility] Comment on above: Performed By: #### B MP, SCAN CBC ####[address] [address] [place] WBC (Bld) [#/Vol] 14.6 10*3/uL High 4.5-11.0 [facility] Comment on above: Performed By: #### B MP, SCAN CBC ####[address] [place] [address] [facility] Serum or plasma vancomycin m easurement (mass/volume)Ordered By: Chris Mccarthy on 11-20-2021 Vancomycin [Mass/Vol] 24.3 ug/mL 5.0-20.0 [facility] Comment on above: Last dose: - Vancomycin,Randomon 11-21-19 Vancomycin,Random 24.3 ug/mL High 5.0-20.0 [facility] Comment on above: Order Comment: Date of last dose?: [id number] Time of last dose?: 899 Result Comment: Last dose: -PERFORMED BY:[address] [place], [place] [phone] MEDICAL DIRECTORCHRISTO PINO M.D. Performed By: #### V ANCR ####[address] [address] [facility] Bacterial blood cultureOrder ed By: Ivan Springer on 11-19-2021 Bacteria identified Cx Nom (Bld) NO GROWTH 5 DAYS [facility] Basic Metabolic Panelon 11-05 Calcium [Mass/Vol] 7.7 mg/dL Low 8.2-10.2 [facility] Comment on above: Performed By: #### D IFF CBC, BMP ####[facility] Pcw8435 [place] [address] [facility] Chloride [Moles/Vol] 106 mmol/L Normal 95-114 [facility] Comment on above: Performed By: #### D IFF CBC, BMP ####[facility] [address] [place] [address] [facility] CO2 [Moles/Vol] 21.8 mmol/L Low 22.0-30.0 [facility] Comment on above: Performed By: #### D IFF CBC, BMP ####[facility] Zdy0419 [place] [address] [facility] Creatinine [Mass/Vol] 3.38 mg/dL High 0.64-1.27 [facility] Comment on above: Performed By: #### D IFF CBC, BMP ####[facility] [address] [place] [id number] [facility] Creatinine Clr Calc Pharmacy 26.58 [facility] Comment on above: Result Comment: PERF ORMED BY:[address] [place]ITTNYEllenJeanetteM[place], [place] [phone] MEDICAL DIRECTORCHRISTO PINO M.D. Performed By: #### D IFF CBC, BMP ####[address] [place] [id number] [facility] Estimated GFR ( Cristo 22 [facility] Comment on above: Result Comment: GFR estimated reference range: According to KDOQI guidelines, <60 ml/min/1.73m2 is sufficient to diagnose a patient with chronic kidney disease. Performed By: #### D IFF CBC, BMP ####[address] [place] [id number] [facility] Estimated GFR (Non- Am 18 [facility] Comment on above: Performed By: #### D IFF CBC, BMP ####[place] [address] [place] [id number] [facility] Glucose [Mass/Vol] 102 mg/dL High 70-100 [facility] Comment on above: Result Comment: [place] Glucose Reference Range is dependent on time and content of last meal. Glucose of more than 200 mg/dL in a nonstressed, ambulatory subject supports the diagnosis of Diabetes Mellitus. ADA recommended reference range Performed By: #### D IFF CBC, BMP ####[facility] [id number] [place] [id number] [facility] Potassium [Moles/Vol] 3.4 mmol/L Low 3.5-5.1 [facility] Comment on above: Performed By: #### D IFF CBC, BMP ####[facility] [id number] [place] [id number] [facility] Sodium [Moles/Vol] 135 mmol/L Low 136-146 [facility] Comment on above: Performed By: #### D IFF CBC, BMP ####[place] [address] [address] [place] [id number] [facility] Urea nitrogen [Mass/Vol] 40 mg/dL High 9-23 [facility] Comment on above: Performed By: #### D IFF CBC, BMP ####[place] [id number] [facility] CT abdomen pelvis wo conon 0 11-19-2021 CT abdomen pelvis wo con Normal [facility] Diff and CBCon 11-19-2021 Anisocytosis Ql (Bld) Moderate Normal [facility] Comment on above: Performed By: #### D IFF CBC, BMP ####[address] Eosinophils/100 WBC (Bld) 4 % High 1-3 [facility] Comment on above: Performed By: #### D IFF CBC, BMP ####[address] Erythrocyte distribution width (RBC) [Ratio] 18.1 % High 12.0-14.8 [facility] Comment on above: Performed By: #### D IFF CBC, BMP ####[address] Hematocrit (Bld) [Volume fraction] 25.8 % Low 38.8-50.0 [facility] Comment on above: Performed By: #### D IFF CBC, BMP ####[place] [id number] [facility] Hemoglobin (Bld) [Mass/Vol] 8.2 g/dL Low 13.0-17.0 [facility] Comment on above: Performed By: #### D IFF CBC, BMP ####[address] Hypochromasia Slight Normal [facility] Comment on above: Performed By: #### D IFF CBC, BMP ####[address] Lymphocytes/100 WBC (Bld) 31 % Normal 18-42 [facility] Comment on above: Performed By: #### D IFF CBC, BMP ####[place] [address] [place] [id number] [facility] MCH (RBC) [Entitic mass] 27.0 pg Low 27.5-35.2 [facility] Comment on above: Performed By: #### D IFF CBC, BMP ####[place] [id number] [facility] MCV (RBC) [Entitic vol] 85.5 fL Normal 83.5-101 [facility] Comment on above: Performed By: #### D IFF CBC, BMP ####[place] [id number] [facility] Mean Corpuscular HGB Conc 31.6 g/dL Low 32.5-35.6 [facility] Comment on above: Performed By: #### D IFF CBC, BMP ####[place] [id number] [facility] Monocytes/100 WBC (Bld) 7 % Normal 2-11 [facility] Comment on above: Performed By: #### D IFF CBC, BMP ####[place] [address] [facility] Nucleated RBC/100 WBC (Bld) [Ratio] 0.1 % Normal 0-0.5 [facility] Comment on above: Result Comment: PERF ORMED BY:[address] [place], [place] [phone] MEDICAL DIRECTORCHRISTO PINO M.D. Performed By: #### D IFF CBC, BMP ####[place] [id number] [facility] Platelet Estimate Normal Normal Normal [facility] Comment on above: Performed By: #### D IFF CBC, BMP ####[place] [id number] [facility] Platelet mean volume (Bld) [Entitic vol] 9.5 fL Normal 6.6-10.1 [facility] Comment on above: Performed By: #### D IFF CBC, BMP ####[address] [place] [address] [facility] Platelet Morphology Normal Normal Normal [facility] Comment on above: Result Comment: PERF ORMED BY:[address] [place], [place] [phone] MEDICAL DIRECTORCHRISTO PINO M.D. Performed By: #### D IFF CBC, BMP ####[address] [address] [facility] Platelets (Bld) [#/Vol] 227 10*3/uL Normal 150-450 [facility] Comment on above: Performed By: #### D IFF CBC, BMP ####[address] [address] [facility] RBC (Bld) [#/Vol] 3.02 10*6/uL Low 3.90-5.60 [facility] Comment on above: Performed By: #### D IFF CBC, BMP ####[address] [address] [facility] Schistocytes Slight Normal [facility] Comment on above: Performed By: #### D IFF CBC, BMP ####[address] [address] [facility] Segmented neutrophils/100 WBC (Bld) 58 % Normal 50-70 [facility] Comment on above: Performed By: #### D IFF CBC, BMP ####[address] [address] [facility] Target Cells Moderate Normal [facility] Comment on above: Performed By: #### D IFF CBC, BMP ####[address] [address] [facility] WBC (Bld) [#/Vol] 14.8 10*3/uL High 4.5-11.0 [facility] Comment on above: Performed By: #### D IFF CBC, BMP ####[address] [address] [place] Glucose Poct Glucometerson 0 11-19-2021 Commemt1 Glu2: Cleaned Meter Normal [facility] Comment on above: Result Comment: PERF ORMED BY:[address] [address] [address] [place], [place] [phone] MEDICAL DIRECTORCHRISTO PINO M.D. Performed By: #### G LULS ####Point of Care testing, Glucose [Mass/Vol] 130 mg/dL Normal [facility] Comment on above: Result Comment: [place] om Glucose Reference Range is dependent on time and content of last meal. Glucose of more than 200 mg/dL in a nonstressed, ambulatory subject supports the diagnosis of Diabetes Mellitus. Performed By: #### G LULS ####Point of Care testing, Glucose [Mass/Vol] 143 mg/dL Normal [facility] Comment on above: Result Comment: [place] om Glucose Reference Range is dependent on time and content of last meal. Glucose of more than 200 mg/dL in a nonstressed, ambulatory subject supports the diagnosis of Diabetes Mellitus.PERFORMED BY:[address] [address] [address] [place] [place], [place] [phone] MEDICAL DIRECTORCHRISTO PINO M.D. Performed By: #### G LULS ####Point of Care testing, Glucose [Mass/Vol] 166 mg/dL Normal [facility] Comment on above: Result Comment: [place] om Glucose Reference Range is dependent on time and content of last meal. Glucose of more than 200 mg/dL in a nonstressed, ambulatory subject supports the diagnosis of Diabetes Mellitus.PERFORMED BY:[address] [address] [address] [place] [place], [place] [phone] MEDICAL DIRECTORCHRISTO PINO M.D. Performed By: #### G LULS ####Point of Care testing, Glucose [Mass/Vol] 128 mg/dL Normal [facility] Comment on above: Result Comment: [place] om Glucose Reference Range is dependent on time and content of last meal. Glucose of more than 200 mg/dL in a nonstressed, ambulatory subject supports the diagnosis of Diabetes Mellitus.PERFORMED BY:[address] [address] [address] [address] [place] [phone] MEDICAL DIRECTORCHRISTO PINO M.D. Performed By: #### G LULS ####Point of Care testing, Commemt1 Glu2: Cleaned Meter Normal [facility] Comment on above: Result Comment: PERF ORMED BY:[facility] [place], [place] [phone] MEDICAL DIRECTORCHRISTO PINO M.D. Performed By: #### G LULS ####Point of Care testing, Glucose [Mass/Vol] 118 mg/dL Normal [facility] Comment on above: Result Comment: [facility] Glucose Reference Range is dependent on time and content of last meal. Glucose of more than 200 mg/dL in a nonstressed, ambulatory subject supports the diagnosis of Diabetes Mellitus. Performed By: #### G LULS ####Point of Care testing, Lymphocytes/100 WBC Auto (Bl d)Ordered By: Chris Mccarthy on 11-19-2021 Lymphocytes/100 WBC (Bld) 31 % 18-42 [facility] Monocyte %Ordered By: Karla Mccarthy on 11-19-2021 Monocytes/100 WBC (Bld) 4 % 1-3 [facility] Monocytes/100 WBC Manual cnt (Bld)Ordered By: Chris Mccarthy on 11-19-2021 Monocytes/100 WBC (Bld) 7 % 2-11 [facility] Segmented neutrophils/100 WB C Manual cnt (Bld)Ordered By: Chris Mccarthy on 11-19-2021 Segmented neutrophils/100 WBC (Bld) 58 % 50-70 [facility] Basic Metabolic Panelon 11-05 Calcium [Mass/Vol] 7.6 mg/dL Low 8.2-10.2 [facility] Comment on above: Performed By: #### C BC, BMP, DIFF CBC ####[facility] [address] [place] [address] [place] Chloride [Moles/Vol] 108 mmol/L Normal 95-114 [facility] Comment on above: Performed By: #### C BC, BMP, DIFF CBC ####[address] [place] [address] [facility] CO2 [Moles/Vol] 22.3 mmol/L Normal 22.0-30.0 [facility] Comment on above: Performed By: #### C BC, BMP, DIFF CBC ####[address] [place] [address] [facility] Creatinine [Mass/Vol] 3.29 mg/dL High 0.64-1.27 [facility] Comment on above: Performed By: #### C BC, BMP, DIFF CBC ####[address] [address] [facility] Creatinine Clr Calc Pharmacy 27.18 [facility] Comment on above: Result Comment: PERF ORMED BY:[address] [place], [place] [phone] MEDICAL DIRECTORCHRISTO PINO M.D. Performed By: #### C BC, BMP, DIFF CBC ####[address] [address] [facility] Estimated GFR ( [address] 23 [facility] Comment on above: Result Comment: GFR estimated reference range: According to KDOQI guidelines, <60 ml/min/1.73m2 is sufficient to diagnose a patient with chronic kidney disease. Performed By: #### C BC, BMP, DIFF CBC ####[address] [address] [facility] Estimated GFR (Non- Am 19 [facility] Comment on above: Performed By: #### C BC, BMP, DIFF CBC ####[address] [address] [facility] Glucose [Mass/Vol] 82 mg/dL Normal 70-100 [facility] Comment on above: Result Comment: [place] Glucose Reference Range is dependent on time and content of last meal. Glucose of more than 200 mg/dL in a nonstressed, ambulatory subject supports the diagnosis of Diabetes Mellitus. ADA recommended reference range Performed By: #### C BC, BMP, DIFF CBC ####[place] [address] [place] [id number] [facility] Potassium [Moles/Vol] 3.7 mmol/L Normal 3.5-5.1 [facility] Comment on above: Performed By: #### C BC, BMP, DIFF CBC ####[place] [id number] [facility] Sodium [Moles/Vol] 138 mmol/L Normal 136-146 [facility] Comment on above: Performed By: #### C BC, BMP, DIFF CBC ####[address] Urea nitrogen [Mass/Vol] 41 mg/dL High 9-23 [facility] Comment on above: Performed By: #### C BC, BMP, DIFF CBC ####[address] Complete Blood Count Auto Di ffon 11-18-2021 Erythrocyte distribution width (RBC) [Ratio] 17.8 % High 12.0-14.8 [facility] Comment on above: Performed By: #### C BC, BMP, DIFF CBC ####[address] Hematocrit (Bld) [Volume fraction] 23.9 % Low 38.8-50.0 [facility] Comment on above: Performed By: #### C BC, BMP, DIFF CBC ####[address] Hemoglobin (Bld) [Mass/Vol] 7.5 g/dL Low 13.0-17.0 [facility] Comment on above: Performed By: #### C BC, BMP, DIFF CBC ####[address] MCH (RBC) [Entitic mass] 27.2 pg Low 27.5-35.2 [facility] Comment on above: Performed By: #### C BC, BMP, DIFF CBC ####[place] [id number] [facility] MCV (RBC) [Entitic vol] 86.0 fL Normal 83.5-101 [facility] Comment on above: Performed By: #### C BC, BMP, DIFF CBC ####[place] [id number] [facility] Mean Corpuscular HGB Conc 31.6 g/dL Low 32.5-35.6 [facility] Comment on above: Performed By: #### C BC, BMP, DIFF CBC ####[address] Nucleated RBC/100 WBC (Bld) [Ratio] 0.2 % Normal 0-0.5 [facility] Comment on above: Result Comment: PERF ORMED BY:[address] [place], [place] [phone] MEDICAL DIRECTORCHRISTO PINO M.D. Performed By: #### C BC, BMP, DIFF CBC ####[address] Platelet mean volume (Bld) [Entitic vol] 9.2 fL Normal 6.6-10.1 [facility] Comment on above: Performed By: #### C BC, BMP, DIFF CBC ####[address] Platelets (Bld) [#/Vol] 221 10*3/uL Normal 150-450 [facility] Comment on above: Performed By: #### C BC, BMP, DIFF CBC ####[address] RBC (Bld) [#/Vol] 2.78 10*6/uL Low 3.90-5.60 [facility] Comment on above: Performed By: #### C BC, BMP, DIFF CBC ####[address] WBC (Bld) [#/Vol] 15.3 10*3/uL High 4.5-11.0 [facility] Comment on above: Performed By: #### C BC, BMP, DIFF CBC ####[address] [address] [facility] Diff and CBCon 11-18-2021 Anisocytosis Ql (Bld) Moderate Normal [facility] Comment on above: Performed By: #### C BC, BMP, DIFF CBC ####[address] [address] [facility] Eosinophils/100 WBC (Bld) 7 % High 1-3 [facility] Comment on above: Performed By: #### C BC, BMP, DIFF CBC ####[address] [address] [facility] Hypochromasia Moderate Normal [facility] Comment on above: Performed By: #### C BC, BMP, DIFF CBC ####[address] [address] [facility] Lymphocytes/100 WBC (Bld) 25 % Normal 18-42 [facility] Comment on above: Performed By: #### C BC, BMP, DIFF CBC ####[address] [address] [facility] Monocytes/100 WBC (Bld) 2 % Normal 2-11 [facility] Comment on above: Performed By: #### C BC, BMP, DIFF CBC ####[address] [address] [facility] Platelet Estimate Normal Normal Normal [facility] Comment on above: Performed By: #### C BC, BMP, DIFF CBC ####[address] [address] [facility] Platelet Morphology Normal Normal Normal [facility] Comment on above: Result Comment: PERF ORMED BY:[address] [place], [place] [phone] MEDICAL DIRECTORCHRISTO PINO M.D. Performed By: #### C BC, BMP, DIFF CBC ####[address] [address] [facility] Segmented neutrophils/100 WBC (Bld) 66 % Normal 50-70 [facility] Comment on above: Performed By: #### C BC, BMP, DIFF CBC ####[facility] [address] [place] [address] [facility] Target Cells Moderate Normal [facility] Comment on above: Performed By: #### C BC, BMP, DIFF CBC ####[facility] [id number] [place] [address] [facility] Glucose Poct Glucometerson 0 11-18-2021 Commemt1 Glu2: Cleaned Meter Normal [facility] Comment on above: Result Comment: PERF ORMED BY:[address] [place], [place] [phone] MEDICAL DIRECTORCHRISTO PINO M.D. Performed By: #### G LULS ####Point of Care testing, Glucose [Mass/Vol] 146 mg/dL Normal [facility] Comment on above: Result Comment: [place] Glucose Reference Range is dependent on time and content of last meal. Glucose of more than 200 mg/dL in a nonstressed, ambulatory subject supports the diagnosis of Diabetes Mellitus. Performed By: #### G LULS ####Point of Care testing, Glucose [Mass/Vol] 154 mg/dL Normal [facility] Comment on above: Result Comment: [place] om Glucose Reference Range is dependent on time and content of last meal. Glucose of more than 200 mg/dL in a nonstressed, ambulatory subject supports the diagnosis of Diabetes Mellitus.PERFORMED BY:[address] [address] [address] [address] [place]ITTNYEllenJeanetteMIGUEL[place], [place] [phone] MEDICAL MOOSE PINO M.D. Performed By: #### G LULS ####Point of Care testing, Glucose [Mass/Vol] 144 mg/dL Normal [facility] Comment on above: Result Comment: [place] Glucose Reference Range is dependent on time and content of last meal. Glucose of more than 200 mg/dL in a nonstressed, ambulatory subject supports the diagnosis of Diabetes Mellitus.PERFORMED BY:[place] [address] [place] [place], [place] [phone] MEDICAL DIRECTORCHRISTO PINO M.D. Performed By: #### G LULS ####Point of Care testing, Glucose [Mass/Vol] 115 mg/dL Normal [facility] Comment on above: Result Comment: [place] om Glucose Reference Range is dependent on time and content of last meal. Glucose of more than 200 mg/dL in a nonstressed, ambulatory subject supports the diagnosis of Diabetes Mellitus.PERFORMED BY:[address] [address] [address]NYEllenJeanetteMIGUELANGEL[place], [place] [phone] MEDICAL DIRECTORCHRISTO PINO M.D. Performed By: #### G LULS ####Point of Care testing, Commemt1 Glu2: Cleaned Meter Normal [facility] Comment on above: Result Comment: PERF ORMED BY:[address] BRITTNYEllenJeanetteMIGUELANGELBUC[place], [place] [phone] MEDICAL MOOSE PINO M.D. Performed By: #### G LULS ####Point of Care testing, Glucose [Mass/Vol] 100 mg/dL Normal [facility] Comment on above: Result Comment: [place] om Glucose Reference Range is dependent on time and content of last meal. Glucose of more than 200 mg/dL in a nonstressed, ambulatory subject supports the diagnosis of Diabetes Mellitus. Performed By: #### G LULS ####Point of Care testing, Vancomycin,Randomon 11-19-19 22 Vancomycin,Random 19.8 ug/mL Normal 5.0-20.0 [facility] Comment on above: Order Comment: Date of last dose?: [id number] Time of last dose?: 0800 Result Comment: Last dose: -PERFORMED BY:[address] [place], [place] [phone] MEDICAL MOOSE PINO M.D. Performed By: #### V ANCR ####[address] [address] [facility] Basic Metabolic Panelon 11-05 Calcium [Mass/Vol] 8.1 mg/dL Low 8.2-10.2 [facility] Comment on above: Performed By: #### D IFF CBC, BMP ####[facility] [id number] [place] [address] [facility] Chloride [Moles/Vol] 107 mmol/L Normal 95-114 [facility] Comment on above: Performed By: #### D IFF CBC, BMP ####[address] [place] [address] [facility] CO2 [Moles/Vol] 21.4 mmol/L Low 22.0-30.0 [facility] Comment on above: Performed By: #### D IFF CBC, BMP ####[facility] [place] [address] [facility] Creatinine [Mass/Vol] 3.24 mg/dL High 0.64-1.27 [facility] Comment on above: Performed By: #### D IFF CBC, BMP ####[address] [place] [address] [facility] Creatinine Clr Calc Pharmacy 28.17 [facility] Comment on above: Result Comment: PERF ORMED BY:[address] [place], [place] [phone] MEDICAL DIRECTORCHRISTO PINO M.D. Performed By: #### D IFF CBC, BMP ####[address] [place] [address] [facility] Estimated GFR ( [address] 23 [facility] Comment on above: Result Comment: GFR estimated reference range: According to KDOQI guidelines, <60 ml/min/1.73m2 is sufficient to diagnose a patient with chronic kidney disease. Performed By: #### D IFF CBC, BMP ####[address] [place] [address] [facility] Estimated GFR (Non- Am 19 [facility] Comment on above: Performed By: #### D IFF CBC, BMP ####[address] [place] [address] [facility] Glucose [Mass/Vol] 58 mg/dL Low 70-100 [facility] Comment on above: Result Comment: [place] Glucose Reference Range is dependent on time and content of last meal. Glucose of more than 200 mg/dL in a nonstressed, ambulatory subject supports the diagnosis of Diabetes Mellitus. ADA recommended reference range Performed By: #### D IFF CBC, BMP ####[facility] Q[address] [place] [address] [facility] Potassium [Moles/Vol] 4.2 mmol/L Normal 3.5-5.1 [facility] Comment on above: Performed By: #### D IFF CBC, BMP ####[address] [place] [address] [facility] Sodium [Moles/Vol] 136 mmol/L Normal 136-146 [facility] Comment on above: Performed By: #### D IFF CBC, BMP ####[address] [place] [address] [facility] Urea nitrogen [Mass/Vol] 42 mg/dL High - [facility] Comment on above: Performed By: #### D IFF CBC, BMP ####[address] [place] [address] [place] Basophils/100 WBC Auto (Bld) Ordered By: Chris Mccarthy on 11-17-2021 Basophils/100 WBC (Bld) 1 % 0-2 [facility] Diff and CBCon 11-17-2021 Anisocytosis Ql (Bld) Moderate Normal [facility] Comment on above: Performed By: #### D IFF CBC, BMP ####[address] [address] [place] Basophils/100 WBC (Bld) 1 % Normal 0-2 [facility] Comment on above: Performed By: #### D IFF CBC, BMP ####[address] [address] [facility] Eosinophils/100 WBC (Bld) 4 % High 1-3 [facility] Comment on above: Performed By: #### D IFF CBC, BMP ####[address] [place] [address] [facility] Erythrocyte distribution width (RBC) [Ratio] 18.2 % High 12.0-14.8 [facility] Comment on above: Performed By: #### D IFF CBC, BMP ####[address] [place] [id number] [facility] Hematocrit (Bld) [Volume fraction] 24.9 % Low 38.8-50.0 [facility] Comment on above: Performed By: #### D IFF CBC, BMP ####[place] [address] Hemoglobin (Bld) [Mass/Vol] 7.9 g/dL Low 13.0-17.0 [facility] Comment on above: Performed By: #### D IFF CBC, BMP ####[address] Hypochromasia Slight Normal [facility] Comment on above: Performed By: #### D IFF CBC, BMP ####[address] Large Platelets Slight Normal [facility] Comment on above: Result Comment: PERF ORMED BY:[address] [place], [place] [phone] MEDICAL DIRECTORCHRISTO PINO M.D. Performed By: #### D IFF CBC, BMP ####[address] Lymphocytes/100 WBC (Bld) 15 % Low 18-42 [facility] Comment on above: Performed By: #### D IFF CBC, BMP ####[address] MCH (RBC) [Entitic mass] 27.5 pg Normal 27.5-35.2 [facility] Comment on above: Performed By: #### D IFF CBC, BMP ####[address] MCV (RBC) [Entitic vol] 86.7 fL Normal 83.5-101 [facility] Comment on above: Performed By: #### D IFF CBC, BMP ####[address] Mean Corpuscular HGB Conc 31.7 g/dL Low 32.5-35.6 [facility] Comment on above: Performed By: #### D IFF CBC, BMP ####[address] [place] [address] [facility] Monocytes/100 WBC (Bld) 2 % Normal 2-11 [facility] Comment on above: Performed By: #### D IFF CBC, BMP ####[address] [address] [facility] Nucleated RBC/100 WBC (Bld) [Ratio] 0.1 % Normal 0-0.5 [facility] Comment on above: Result Comment: PERF ORMED BY:[address] [place], [place] [phone] MEDICAL DIRECTORCHRISTO PINO M.D. Performed By: #### D IFF CBC, BMP ####[address] [address] [facility] Platelet Estimate Normal Normal Normal [facility] Comment on above: Performed By: #### D IFF CBC, BMP ####[address] [place] [address] [facility] Platelet mean volume (Bld) [Entitic vol] 10.1 fL Normal 6.6-10.1 [facility] Comment on above: Performed By: #### D IFF CBC, BMP ####[address] [address] [facility] Platelets (Bld) [#/Vol] 191 10*3/uL Normal 150-450 [facility] Comment on above: Performed By: #### D IFF CBC, BMP ####[address] [address] [facility] Poikilocytosis Slight Normal [facility] Comment on above: Performed By: #### D IFF CBC, BMP ####[address] [address] [facility] RBC (Bld) [#/Vol] 2.88 10*6/uL Low 3.90-5.60 [facility] Comment on above: Performed By: #### D IFF CBC, BMP ####[facility] [place] [address] [facility] Segmented neutrophils/100 WBC (Bld) 78 % High 50-70 [facility] Comment on above: Performed By: #### D IFF CBC, BMP ####[facility] Wor[address] [place] [address] [facility] Target Cells Moderate Normal [facility] Comment on above: Performed By: #### D IFF CBC, BMP ####[address] [place] [address] [facility] WBC (Bld) [#/Vol] 21.3 10*3/uL High 4.5-11.0 [facility] Comment on above: Performed By: #### D IFF CBC, BMP ####[address] [place] [address] [facility] Glucose Poct Glucometerson 0 11-17-2021 Commemt1 Glu2: Cleaned Meter [facility] Comment on above: Result Comment: PERF ORMED BY:[address] [address] [place] [phone] MEDICAL DIRECTORCHRISTO PINO M.D. Performed By: #### G LULS ####Point of Care testing, Glucose [Mass/Vol] 133 mg/dL [facility] Comment on above: Result Comment: [facility] Glucose Reference Range is dependent on time and content of last meal. Glucose of more than 200 mg/dL in a nonstressed, ambulatory subject supports the diagnosis of Diabetes Mellitus. Performed By: #### G LULS ####Point of Care testing, Commemt1 Glu2: Cleaned Meter [facility] Comment on above: Result Comment: PERF ORMED BY:[address] [address] [place], [place] [phone] MEDICAL DIRECTORCHRISTO PINO M.D. Performed By: #### G LULS ####Point of Care testing, Glucose [Mass/Vol] 97 mg/dL Normal [facility] Comment on above: Result Comment: [place] om Glucose Reference Range is dependent on time and content of last meal. Glucose of more than 200 mg/dL in a nonstressed, ambulatory subject supports the diagnosis of Diabetes Mellitus. Performed By: #### G LULS ####Point of Care testing, Commemt1 Glu2: Cleaned Meter [facility] Comment on above: Result Comment: PERF ORMED BY:[address] [address] [place], [place] [phone] MEDICAL DIRECTORCHRISTO PINO M.D. Performed By: #### G LULS ####Point of Care testing, Glucose [Mass/Vol] 98 mg/dL Normal [facility] Comment on above: Result Comment: [place] Glucose Reference Range is dependent on time and content of last meal. Glucose of more than 200 mg/dL in a nonstressed, ambulatory subject supports the diagnosis of Diabetes Mellitus. Performed By: #### G LULS ####Point of Care testing, Commemt1 Glu2: Cleaned Meter [facility] Comment on above: Result Comment: PERF ORMED BY:[address] [place], [place] [phone] MEDICAL DIRECTORCHRISTO PINO M.D. Performed By: #### G LULS ####Point of Care testing, Glucose [Mass/Vol] 72 mg/dL Normal [facility] Comment on above: Result Comment: [place] Glucose Reference Range is dependent on time and content of last meal. Glucose of more than 200 mg/dL in a nonstressed, ambulatory subject supports the diagnosis of Diabetes Mellitus. Performed By: #### G LULS ####Point of Care testing, No Panel InformationOrdered By: Chris Mccarthy on 11-17-2021 Large Platelets Slight [facility] Poikilocytosis Slight [facility] Basic Metabolic Panelon 11-05 Calcium [Mass/Vol] 8.0 mg/dL Low 8.2-10.2 [facility] Comment on above: Performed By: #### D IFF CBC, BMP ####[facility] Zct[address]24 [place] [address] [facility] Chloride [Moles/Vol] 108 mmol/L Normal 95-114 [facility] Comment on above: Performed By: #### D IFF CBC, BMP ####[address] [place] [address] [facility] CO2 [Moles/Vol] 19.0 mmol/L Low 22.0-30.0 [facility] Comment on above: Performed By: #### D IFF CBC, BMP ####[facility] [address] [place] [address] [facility] Creatinine [Mass/Vol] 3.31 mg/dL High 0.64-1.27 [facility] Comment on above: Performed By: #### D IFF CBC, BMP ####[address] [place] [address] [facility] Creatinine Clr Calc Pharmacy 27.48 [facility] Comment on above: Result Comment: PERF ORMED BY:[address] [place], [place] [phone] MEDICAL DIRECTORCHRISTO PINO M.D. Performed By: #### D IFF CBC, BMP ####[address] [place] [address] [facility] Estimated GFR ( Crist[address] 22 [facility] Comment on above: Result Comment: GFR estimated reference range: According to KDOQI guidelines, <60 ml/min/1.73m2 is sufficient to diagnose a patient with chronic kidney disease. Performed By: #### D IFF CBC, BMP ####[address] [place] [address] [facility] Estimated GFR (Non- Am 19 [facility] Comment on above: Performed By: #### D IFF CBC, BMP ####[facility] Ceh[address]43 [place] [address] [facility] Glucose [Mass/Vol] 67 mg/dL Low 70-100 [facility] Comment on above: Result Comment: [facility] Glucose Reference Range is dependent on time and content of last meal. Glucose of more than 200 mg/dL in a nonstressed, ambulatory subject supports the diagnosis of Diabetes Mellitus. ADA recommended reference range Performed By: #### D IFF CBC, BMP ####[address] [place] [id number] [facility] Potassium [Moles/Vol] 4.5 mmol/L Normal 3.5-5.1 [facility] Comment on above: Performed By: #### D IFF CBC, BMP ####[id number] [facility] Sodium [Moles/Vol] 135 mmol/L Low 136-146 [facility] Comment on above: Performed By: #### D IFF CBC, BMP ####[address] Urea nitrogen [Mass/Vol] 40 mg/dL High 9-23 [facility] Comment on above: Performed By: #### D IFF CBC, BMP ####[address] Diff and CBCon 11-16-2021 Anisocytosis Ql (Bld) Moderate Normal [facility] Comment on above: Performed By: #### D IFF CBC, BMP ####[id number] [facility] Band form neutrophils/100 WBC (Bld) 11 % High 0-5 [facility] Comment on above: Performed By: #### D IFF CBC, BMP ####[id number] [facility] Basophils/100 WBC (Bld) 1 % Normal 0-2 [facility] Comment on above: Performed By: #### D IFF CBC, BMP ####[id number] [facility] Erythrocyte distribution width (RBC) [Ratio] 18.5 % High 12.0-14.8 [facility] Comment on above: Performed By: #### D IFF CBC, BMP ####[id number] [facility] Hematocrit (Bld) [Volume fraction] 25.9 % Low 38.8-50.0 [facility] Comment on above: Performed By: #### D IFF CBC, BMP ####[address] Hemoglobin (Bld) [Mass/Vol] 8.1 g/dL Low 13.0-17.0 [facility] Comment on above: Performed By: #### D IFF CBC, BMP ####[address] Hypochromasia Slight Normal [facility] Comment on above: Performed By: #### D IFF CBC, BMP ####[address] Lymphocytes/100 WBC (Bld) 13 % Low 18-42 [facility] Comment on above: Performed By: #### D IFF CBC, BMP ####[address] MCH (RBC) [Entitic mass] 27.2 pg Low 27.5-35.2 [facility] Comment on above: Performed By: #### D IFF CBC, BMP ####[address] MCV (RBC) [Entitic vol] 86.6 fL Normal 83.5-101 F [facility] Comment on above: Performed By: #### D IFF CBC, BMP ####[address] Mean Corpuscular HGB Conc 31.4 g/dL Low 32.5-35.6 [facility] Comment on above: Performed By: #### D IFF CBC, BMP ####[id number] [facility] Monocytes/100 WBC (Bld) 6 % Normal 2-11 [facility] Comment on above: Performed By: #### D IFF CBC, BMP ####[id number] [facility] Nucleated RBC/100 WBC (Bld) [Ratio] 0.1 % Normal 0-0.5 [facility] Comment on above: Result Comment: PERF ORMED BY:[address] [address] [place], [place] [phone] MEDICAL DIRECTORCHRISTO PINO M.D. Performed By: #### D IFF CBC, BMP ####[address] [place] [address] [facility] Platelet Estimate Normal Normal Normal [facility] Comment on above: Performed By: #### D IFF CBC, BMP ####[address] [place] [address] [facility] Platelet mean volume (Bld) [Entitic vol] 9.6 fL Normal 6.6-10.1 [facility] Comment on above: Performed By: #### D IFF CBC, BMP ####[address] [address] [facility] Platelet Morphology Normal Normal Normal [facility] Comment on above: Result Comment: PERF ORMED BY:[address] [address] [place], [place] [phone] MEDICAL DIRECTORCHRISTO PINO M.D. Performed By: #### D IFF CBC, BMP ####[address] [address] [facility] Platelets (Bld) [#/Vol] 204 10*3/uL Normal 150-450 [facility] Comment on above: Performed By: #### D IFF CBC, BMP ####[address] [address] [facility] RBC (Bld) [#/Vol] 2.99 10*6/uL Low 3.90-5.60 [facility] Comment on above: Performed By: #### D IFF CBC, BMP ####[address] [address] [facility] Segmented neutrophils/100 WBC (Bld) 69 % Normal 50-70 [facility] Comment on above: Performed By: #### D IFF CBC, BMP ####[id number] [facility] Target Cells Moderate Normal [facility] Comment on above: Performed By: #### D IFF CBC, BMP ####[facility] [address] [place] [id number] [facility] WBC (Bld) [#/Vol] 25.8 10*3/uL High 4.5-11.0 [facility] Comment on above: Performed By: #### D IFF CBC, BMP ####[facility] [place] [address] [facility] Glucose Poct Glucometerson 0 11-16-2021 Glucose [Mass/Vol] 102 mg/dL Normal [facility] Comment on above: Result Comment: [facility] Glucose Reference Range is dependent on time and content of last meal. Glucose of more than 200 mg/dL in a nonstressed, ambulatory subject supports the diagnosis of Diabetes Mellitus.PERFORMED BY:[address] [place], [place] [phone] MEDICAL DIRECTORCHRISTO PINO M.D. Performed By: #### G LULS ####Point of Care testing, Commemt1 Glu2: Cleaned Meter [facility] Comment on above: Result Comment: PERF ORMED BY:[address] [address] [place], [place] [phone] MEDICAL MOOSE PINO M.D. Performed By: #### G LULS ####Point of Care testing, Glucose [Mass/Vol] 104 mg/dL Normal [facility] Comment on above: Result Comment: [facility] Glucose Reference Range is dependent on time and content of last meal. Glucose of more than 200 mg/dL in a nonstressed, ambulatory subject supports the diagnosis of Diabetes Mellitus. Performed By: #### G LULS ####Point of Care testing, Commemt1 Glu2: Cleaned Meter [facility] Comment on above: Result Comment: PERF ORMED BY:[address] INFANTEJeanetteMIGUELANGEL, [place] [phone] MEDICAL DIRECTORCHRISTO PINO M.D. Performed By: #### G LULS ####Point of Care testing, Glucose [Mass/Vol] 143 mg/dL Normal [facility] Comment on above: Result Comment: [place] om Glucose Reference Range is dependent on time and content of last meal. Glucose of more than 200 mg/dL in a nonstressed, ambulatory subject supports the diagnosis of Diabetes Mellitus. Performed By: #### G LULS ####Point of Care testing, Commemt1 Glu2: Cleaned Meter Normal [facility] Comment on above: Result Comment: PERF ORMED BY:[facility] [place], [place] [phone] MEDICAL DIRECTORCHRISTO PINO M.D. Performed By: #### G LULS ####Point of Care testing, Glucose [Mass/Vol] 70 mg/dL Normal [facility] Comment on above: Result Comment: [place] om Glucose Reference Range is dependent on time and content of last meal. Glucose of more than 200 mg/dL in a nonstressed, ambulatory subject supports the diagnosis of Diabetes Mellitus. Performed By: #### G LULS ####Point of Care testing, Glucose [Mass/Vol] 129 mg/dL Normal [facility] Comment on above: Result Comment: [place] om Glucose Reference Range is dependent on time and content of last meal. Glucose of more than 200 mg/dL in a nonstressed, ambulatory subject supports the diagnosis of Diabetes Mellitus. Performed By: #### G LULS ####Point of Care testing, Laboratory - Hematology and Cell countsOrdered By: Chris Mccarthy on 11-16-2021 Band form neutrophils/100 WBC (Bld) 11 % 0-5 [facility] Urine culture routineOrdered By: Ivan Springer on 11-16-2021 Bacteria identified Cx Nom (U) No Growth 2 Days [facility] Vancomycin,Randomon 11-17-19 22 Vancomycin,Random 13.8 ug/mL Normal 5.0-20.0 [facility] Comment on above: Order Comment: Date of last dose?: [id number] Time of last dose?: 1529 Result Comment: Last dose: -PERFORMED BY:[address] [address] [place] [place], [place] [phone] MEDICAL DIRECTORCHRISTO PINO M.D. Performed By: #### V ANCR ####[address] [place] [address] [facility] A1C with Estimated Average G antoninan 11-15-2021 Glucose [Mass/Vol] 114 mg/dL Normal [facility] Comment on above: Result Comment: PERF ORMED BY:[address] [address] [place], [place] [phone] MEDICAL DIRECTORCHRISTO PINO M.D. Performed By: #### A 1C WT eA ####[address] [address] [facility] HbA1c (Bld) [Mass fraction] 5.6 % Normal 4.3-5.6 [facility] Comment on above: Result Comment: Incr eased risk for diabetes: 5.7 - 6.4 diabetes: >6.4 glycemic control for adults with diabetes: <7.0 Performed By: #### A 1C WTH eA ####[address] [address] [facility] Albumin [Mass/volume] in Ser um or PlasmaOrdered By: Olga Lidia Martin on 11-15-2021 Albumin [Mass/Vol] 2.3 g/dL 2.9-4.4 [facility] Albumin/Protein.total in 24 hour Urine by ElectrophoresisOrdered By: Olga Lidia Martin on 11-15-2021 Albumin Elph (24H U) [Mass fraction] 49.1 % . [facility] Basic Metabolic Panelon 11-05 Calcium [Mass/Vol] 7.8 mg/dL Low 8.2-10.2 [facility] Comment on above: Performed By: #### V [id number], BMP, DIFF CBC ####[address] [address] [facility] Chloride [Moles/Vol] 111 mmol/L Normal 95-114 [facility] Comment on above: Performed By: #### V [id number], BMP, DIFF CBC ####[facility] Xts[address] [place] [address] [facility] CO2 [Moles/Vol] 17.1 mmol/L Low 22.0-30.0 [facility] Comment on above: Performed By: #### V [id number], BMP, DIFF CBC ####[facility] [address] [place] [address] [facility] Creatinine [Mass/Vol] 3.28 mg/dL High 0.64-1.27 [facility] Comment on above: Performed By: #### V [id number], BMP, DIFF CBC ####[address] [place] [address] [place] Creatinine Clr Calc Pharmacy 27.57 [facility] Comment on above: Performed By: #### V [id number], BMP, DIFF CBC ####[address] [place] [address] [facility] Estimated GFR ( Cristo 23 [facility] Comment on above: Result Comment: GFR estimated reference range: According to KDOQI guidelines, <60 ml/min/1.73m2 is sufficient to diagnose a patient with chronic kidney disease. Performed By: #### V [id number], BMP, DIFF CBC ####[address] [place] [id number] [facility] Estimated GFR (Non- Am 19 [facility] Comment on above: Performed By: #### V [id number], BMP, DIFF CBC ####[address] [address] [facility] Glucose [Mass/Vol] 122 mg/dL High 70-100 [facility] Comment on above: Result Comment: [place] om Glucose Reference Range is dependent on time and content of last meal. Glucose of more than 200 mg/dL in a nonstressed, ambulatory subject supports the diagnosis of Diabetes Mellitus. ADA recommended reference range Performed By: #### V [id number], BMP, DIFF CBC ####[facility] U[address] [place] [address] [facility] Potassium [Moles/Vol] 5.0 mmol/L Normal 3.5-5.1 [facility] Comment on above: Performed By: #### V [id number], BMP, DIFF CBC ####[facility] [address] [place] [address] [facility] Sodium [Moles/Vol] 135 mmol/L Low 136-146 [facility] Comment on above: Performed By: #### V [id number], BMP, DIFF CBC ####[facility] [address] [place] [address] [facility] Urea nitrogen [Mass/Vol] 34 mg/dL High 9-23 [facility] Comment on above: Performed By: #### V IBL20AM, BMP, DIFF CBC ####[facility] Hpq[address] Blood polychromasia detectio n by light microscopyOrdered By: Chris Mccarthy on 11-15-2021 Polychromasia LM Ql (Bld) Slight [facility] CT abdomen pelvis wo conon 0 11-15-2021 CT abdomen pelvis wo con Normal [facility] CT biopsyOrdered By: Roosevelt maria on 11-15-2021 Transferrin [Mass/Vol] 189 mg/dL 180-380 [facility] Diff and CBCon 11-15-2021 Anisocytosis Ql (Bld) Moderate Normal [facility] Comment on above: Performed By: #### V [id number], BMP, DIFF CBC ####[place] [id number] [facility] Band form neutrophils/100 WBC (Bld) 27 % High 0-5 [facility] Comment on above: Performed By: #### V [id number], BMP, DIFF CBC ####[address] [place] [address] [facility] Erythrocyte distribution width (RBC) [Ratio] 18.3 % High 12.0-14.8 [facility] Comment on above: Performed By: #### V [id number], BMP, DIFF CBC ####[facility] Mrb[address]83 [place] [address] [facility] Hematocrit (Bld) [Volume fraction] 26.9 % Low 38.8-50.0 [facility] Comment on above: Performed By: #### V [id number], BMP, DIFF CBC ####[address] Hemoglobin (Bld) [Mass/Vol] 8.1 g/dL Low 13.0-17.0 [facility] Comment on above: Performed By: #### V [id number], BMP, DIFF CBC ####[address] Hypochromasia Slight Normal [facility] Comment on above: Performed By: #### V QCT52LN, BMP, DIFF CBC ####[address] Large Platelets Slight Normal [facility] Comment on above: Result Comment: PERF ORMED BY:[address] [place], [place] [phone] MEDICAL DIRECTORCHRISTO PINO M.D. Performed By: #### V EUQ90IB, BMP, DIFF CBC ####[address] Lymphocytes/100 WBC (Bld) 7 % Low 18-42 [facility] Comment on above: Performed By: #### V [id number], BMP, DIFF CBC ####[address] MCH (RBC) [Entitic mass] 26.4 pg Low 27.5-35.2 [facility] Comment on above: Performed By: #### V [id number], BMP, DIFF CBC ####[address] MCV (RBC) [Entitic vol] 87.5 fL Normal 83.5-101 F [facility] Comment on above: Performed By: #### V [id number], BMP, DIFF CBC ####[address] Mean Corpuscular HGB Conc 30.2 g/dL Low 32.5-35.6 [facility] Comment on above: Performed By: #### V [id number], BMP, DIFF CBC ####[address] [address] [facility] Metamyelocytes 1 % High 0-0 [facility] Comment on above: Performed By: #### V WDR46SH, BMP, DIFF CBC ####[address] [address] [facility] Monocytes/100 WBC (Bld) 3 % Normal 2-11 [facility] Comment on above: Performed By: #### V [id number], BMP, DIFF CBC ####[address] [address] [facility] Nucleated RBC/100 WBC (Bld) [Ratio] 0.1 % Normal 0-0.5 [facility] Comment on above: Result Comment: PERF ORMED BY:[address] [place], [place] [phone] MEDICAL DIRECTORCHRISTO PINO M.D. Performed By: #### V [id number], BMP, DIFF CBC ####[address] [address] [facility] Platelet Estimate Normal Normal Normal [facility] Comment on above: Performed By: #### V [id number], BMP, DIFF CBC ####[address] [address] [facility] Platelet mean volume (Bld) [Entitic vol] 10.4 fL High 6.6-10.1 [facility] Comment on above: Performed By: #### V [id number], BMP, DIFF CBC ####[address] [address] [facility] Platelets (Bld) [#/Vol] 238 10*3/uL Normal 150-450 [facility] Comment on above: Performed By: #### V YHZ87VI, BMP, DIFF CBC ####[address] [address] [facility] Polychromasia Slight Normal [facility] Comment on above: Performed By: #### V YDE88WO, BMP, DIFF CBC ####[place] [id number] [place] RBC (Bld) [#/Vol] 3.08 10*6/uL Low 3.90-5.60 [facility] Comment on above: Performed By: #### V [id number], BMP, DIFF CBC ####[address] Schistocytes Slight Normal [facility] Comment on above: Performed By: #### V LQJ43CL, BMP, DIFF CBC ####[address] Segmented neutrophils/100 WBC (Bld) 62 % Normal 50-70 [facility] Comment on above: Performed By: #### V XNT49TE, BMP, DIFF CBC ####[address] Target Cells Moderate Normal [facility] Comment on above: Performed By: #### V [id number], BMP, DIFF CBC ####[address] WBC (Bld) [#/Vol] 30.1 10*3/uL High 4.5-11.0 [facility] Comment on above: Performed By: #### V PQP26UX, BMP, DIFF CBC ####[address] Ferritinon 11-15-2021 Ferritin [Mass/Vol] 68.6 ng/mL Normal 23.9-336.2 [facility] Comment on above: Performed By: #### S PE, KAPPA, ROSALEE SERUM ####[facility] ,#### FE and TIBC, [id number], OKSANA ####[address] Ferritin [Mass/volume] in Se rum or PlasmaOrdered By: Olga Lidia Martin on 11-15-2021 Ferritin [Mass/Vol] 68.6 ng/mL 23.9-336.2 [facility] Folate [Mass/volume] in Seru m or PlasmaOrdered By: Olga Lidia Martin on 11-15-2021 Folate [Mass/Vol] 6.8 ng/mL >5.9 [facility] Comment on above: Folate reference ran ge: >5.9 ng/ml The WHO technical consultation on folate and vitamin b12 deficiencies has determined that folate concentrations less than 4 ng/ml are considered deficient. Folate reference ran ge: >5.9 ng/mlThe WHO technical consultation on folate and vitamin [id number] has determined that folate concentrations lessthan 4 ng/ml are considered deficient. Free K+L LT Chains, Qn, Son 11-15-2021 Free Wisdom Light Chains, S 229.3 mg/L High 3.3-19.4 [facility] Comment on above: Performed By: #### S PE, KAPPA, ROSALEE SERUM ####[facility] ,#### FE and TIBC, [id number], OKSANA ####[address] Free Lambda Light Chains, S 163.5 mg/L High 5.7-26.3 [facility] Comment on above: Performed By: #### S PE, KAPPA, ROSALEE SERUM ####[facility] ,#### FE and TIBC, [id number], OKSANA ####[address] Wisdom/Lambda Ratio, S 1.40 Normal 0.26-1.65 [facility] Comment on above: Result Comment: Perf ormed at: CB - [facility] [address] [id number] Event Av Operator: Colton Lane PhD, Phone: [phone] BY:[address] [place], [place] [phone] MEDICAL DIRECTORCHRISTO PINO M.D. Performed By: #### S PE, KAPPA, ROSALEE SERUM ####[facility] ,#### FE and TIBC, [id number], OKSANA ####[address] Gamma globulin/Protein.total in 24 hour Urine by ElectrophoresisOrdered By: Olga Lidia Martin on 11-15-2021 Gamma globulin Elph (24H U) [Mass fraction] 24.0 % . [facility] Glucose Poct Glucometerson 0 11-15-2021 Glucose [Mass/Vol] 148 mg/dL Normal [facility] Comment on above: Result Comment: [place] Glucose Reference Range is dependent on time and content of last meal. Glucose of more than 200 mg/dL in a nonstressed, ambulatory subject supports the diagnosis of Diabetes Mellitus.PERFORMED BY:[place] [address] [place] [place], [place] [phone] MEDICAL DIRECTORCHRISTO PINO M.D. Performed By: #### G LULS ####Point of Care testing, Commemt1 Glu2: Cleaned Meter Normal [facility] Comment on above: Result Comment: PERF ORMED BY:[place] [address] [address] [place], [place] [phone] MEDICAL DIRECTORCHRISTO PINO M.D. Performed By: #### G LULS ####Point of Care testing, Glucose [Mass/Vol] 133 mg/dL Normal [facility] Comment on above: Result Comment: [place] om Glucose Reference Range is dependent on time and content of last meal. Glucose of more than 200 mg/dL in a nonstressed, ambulatory subject supports the diagnosis of Diabetes Mellitus. Performed By: #### G LULS ####Point of Care testing, Glucose [Mass/Vol] 141 mg/dL Normal [facility] Comment on above: Result Comment: [place] om Glucose Reference Range is dependent on [...] from glycated hemoglobin (Bld) [Mass/Vol] 114 mg/dL [facility] Hemoglobin A1c percentageOrd ered By: Chris Mccarthy on 11-15-2021 HbA1c (Bld) [Mass fraction] 5.6 % 4.3-5.6 [facility] Comment on above: Increased risk for d iabetes: 5.7 - 6.4 diabetes: >6.4 glycemic control for adults with diabetes: <7.0 Increased risk for d iabetes: 5.7 - 6.4diabetes: >6.4glycemic control for adults with diabetes: <7.0 IgA [Mass/volume] in Serum o r PlasmaOrdered By: Olga Lidia Martin on 11-15-2021 IgA [Mass/Vol] 698 mg/dL 61-437 [facility] IgG [Mass/volume] in Serum o r PlasmaOrdered By: Olga Lidia Martin on 11-15-2021 IgG [Mass/Vol] 2509 mg/dL 603-1613 [facility] IgM [Mass/volume] in Serum o r PlasmaOrdered By: Olga Lidia Martin on 11-15-2021 IgM [Mass/Vol] 87 mg/dL 15-143 [facility] Comment on above: Performed at: [facility] [place] [id number] Event Av Operator: Colton Lane PhD, Phone: [phone] Performed at: [facility] [address] [id number] Director: Colton Lane PhD, Phone: [phone] Immunofixation for UrineOrde red By: Olga Lidia Martin on 11-15-2021 Interpretation Immunofixation (U) [Interp] See comment . [facility] Comment on above: No monoclonality det ected. Performed at: [facility] [address] [id number] Event Av Operator: Colton Lane PhD, Phone: [phone] No monoclonality det ected.Performed at: [facility] [id number] Director: Colton Lane PhD, Phone: [phone] Immunofixation, (ROSALEE), Urine on 11-15-2021 Immunofixation, (ROSALEE), Urine Normal . [facility] Comment on above: Result Comment: No m onoclonality detected. Performed at: [facility] [id number] Event Av Operator: Colton Lane PhD, Phone: [phone] Performed By: #### U PE RAND, ROSALEE,URINE ####[facility] , Immunofixation,Serumon 11-15 Immunofixation, Serum Normal . [facility] Comment on above: Result Comment: No m onoclonality detected. Performed By: #### S PE, KAPPA, ROSALEE SERUM ####[facility] ,#### FE and TIBC, [id number], OKSANA ####[place] [address] [place] [address] [place] Immunoglobulin A, Serum 698 mg/dL High 61-437 [facility] Comment on above: Performed By: #### S PE, KAPPA, ROSALEE SERUM ####[facility] ,#### FE and TIBC, [id number], OKSANA ####[place] [address] [place] [address] [place] Immunoglobulin G 2509 mg/dL High 603-1613 [facility] Comment on above: Performed By: #### S PE, KAPPA, ROSALEE SERUM ####[facility] ,#### FE and TIBC, [id number], OKSANA ####[place] [address] [place] [address] [place] Immunoglobulin M, Serum 87 mg/dL Normal 15-143 [facility] Comment on above: Result Comment: Perf ormed at: [facility] [id number] Event Av Operator: Colton Lane PhD, Phone: [phone] Performed By: #### S PE, KAPPA, ROSALEE SERUM ####[facility] ,#### FE and TIBC, [id number], OKSANA ####[facility] Immunoglobulin light chains. kappa.free [Mass/volume] in SerumOrdered By: Olga Lidia Mario on 11-15-2021 Immunoglobulin light chains.kappa.free (S) [Mass/Vol] 229.3 mg/L 3.3-19.4 [facility] Immunoglobulin light chains. kappa.free/Immunoglobulin light chains.lambda.free [MassOrdered By: Olga Lidia Mario on 11-15-2021 Immunoglobulin light chains.kappa.free/Immun oglobulin light chains.lambda.free (S) [Mass ratio] 1.40 0.26-1.65 [facility] Comment on above: Performed at: [employer] [address] [place], [place] [id number] Event Av Operator: Colton Lane PhD, Phone: [phone] Performed at: [facility] [address] [place] [id number] Director: Colton Lane PhD, Phone: [phone] Immunoglobulin light chains. lambda.free [Mass/volume] in Serum or PlasmaOrdered By: Olga Lidia Mario on 11-15-2021 Immunoglobulin light chains.lambda.free [Mass/Vol] 163.5 mg/L 5.7-26.3 [facility] Iron [Mass/volume] in Serum or PlasmaOrdered By: Olga Lidia Mario on 11-15-2021 Iron [Mass/Vol] 9 ug/dL 40-160 [facility] Iron and TIBC Profileon 11-05 % Iron Saturation 3.0 % Low 20-50 [facility] Comment on above: Performed By: #### S PE, KAPPA, ROSALEE SERUM ####[facility] ,#### FE and TIBC, [id number], OKSANA ####[facility] [id number] Iron [Mass/Vol] 9 ug/dL Low 40-160 [facility] Comment on above: Performed By: #### S PE, KAPPA, ROSALEE SERUM ####[facility] ,#### FE and TIBC, [id number], OKSANA ####[place] [address] [place] [id number] [facility] Total Iron Binding Capacity 265 ug/dL Normal 255-450 [facility] Comment on above: Performed By: #### S PE, KAPPA, ROSALEE SERUM ####[facility] ,#### FE and TIBC, [id number], OKSANA ####[place] [id number] [facility] Transferrin [Mass/Vol] 189 mg/dL Normal 180-380 [facility] Comment on above: Performed By: #### S PE, KAPPA, ROSALEE SERUM ####[facility] ,#### FE and TIBC, [id number], OKSANA ####[address] Iron binding capacity [Mass/ volume] in Serum or PlasmaOrdered By: Olga Lidia Mario on 11-15-2021 Iron binding capacity [Mass/Vol] 265 ug/dL 255-450 [facility] Iron saturation [Mass Fracti on] in Serum or PlasmaOrdered By: Olga Lidia Mario on 11-15-2021 Iron saturation [Mass fraction] 3.0 % 20-50 [facility] Laboratory - Chemistry and C hemistry - challengeOrdered By: Olga Lidia Martin on 11-15-2021 Cobalamin (Vitamin B12) [Mass/Vol] 825 pg/mL 180-914 [facility] MR foot RT wo conon 11-16-19 MR foot RT wo con Normal [facility] Metamyelocytes/100 WBC Manua l cnt (Bld)Ordered By: Chris Mccarthy on 11-15-2021 Metamyelocytes/100 WBC (Bld) 1 % 0-0 [facility] No Panel InformationOrdered By: Olga Lidia Martin on 11-15-2021 Urine Random Prot Electrophor Note See comment . [facility] Comment on above: Protein electrophore sis scan will follow via computer, mail, or police justice delivery. Performed at: [address] [id number] Event Av Operator: Colton Lane PhD, Phone: [phone] Protein electrophore sis scan will follow via computer,mail, or police justice delivery.Performed at: [address] [id number] Director: Colton Lane PhD, Phone: [phone] Protein Electrophoresis M-Alvarez Not observed g/dL Not Observed [facility] Protein Electrophoresis Note See comment . [facility] Comment on above: Protein electrophore sis scan will follow via computer, mail, or police justice delivery. Performed at: [address] [id number] Event Av Operator: Colton Lane PhD, Phone: [phone] Protein electrophore sis scan will follow via computer,mail, or police justice delivery.Performed at: [address] [id number] Director: Colton Lane PhD, Phone: [phone] Serum Immunofixation See comment . [facility] Comment on above: No monoclonality det ected. No Panel InformationOrdered By: Chris Mccarthy on 11-15-2021 25-Hydroxy Vitamin D Total 12.2 ng/mL 30-100 [facility] Comment on above: VITAMIN D STATUS 25( [place])VITAMIN D RANGE (ng/mL) Deficient <20 Insufficient 20 to <30 Sufficient 30 to 100 Reference: Xavier Hunt, [place] RIOS, et al. Evaluation,treatment, [...] 11-15-2021 Albumin, Urine 49.1 % Normal . [facility] Comment on above: Performed By: #### U PE RAND, ROSALEE,URINE ####[facility] , Qigvl-3-Jysvwczo, Urine 7.1 % Normal . [facility] Comment on above: Performed By: #### U PE RAND, ROSALEE,URINE ####[facility] , Pltfm-5-Jvjiqeis, Urine 7.2 % Normal . [facility] Comment on above: Performed By: #### U PE RAND, ROSALEE,URINE ####[facility] , Beta Globulin, Urine 12.6 % Normal . [facility] Comment on above: Performed By: #### U PE RAND, ROSALEE,URINE ####[facility] , Gamma Globulin, Urine 24.0 % Normal . [facility] Comment on above: Performed By: #### U PE RAND, ROSALEE,URINE ####[facility] , M-Alvarez % Not Observed Normal Not Observed [facility] Comment on above: Performed By: #### U PE RAND, RSOALEE,URINE ####[facility] , Please Note: Normal . [facility] Comment on above: Result Comment: Prot ein electrophoresis scan will follow via computer, mail, or police justice delivery. Performed at: - [facility] [id number] Event Av Operator: Colton Lane PhD, Phone: [phone] BY:[place] [address] [place], [place] [phone] MEDICAL DIRECTORCHRISTO PINO M.D. Performed By: #### U PE RAND, ROSALEE,URINE ####[facility] , Protein (U) [Mass/Vol] 170.8 mg/dL Normal Not Estab. [facility] Comment on above: Performed By: #### U PE RAND, ROSALEE,URINE ####[facility] , Protein Electrophoresis, Ser umon 11-15-2021 Albumin [Mass/Vol] 2.3 g/dL Low 2.9-4.4 [facility] Comment on above: Performed By: #### S PE, KAPPA, ROSALEE SERUM ####[facility] ,#### FE and TIBC, [id number], OKSANA ####[address] Albumin/Globulin [Mass ratio] 0.5 {ratio} Low 0.7-1.7 [facility] Comment on above: Performed By: #### S PE, KAPPA, ROSALEE SERUM ####[facility] ,#### FE and TIBC, [id number], OKSANA ####[address] Ichst-6-Inkituda 0.3 g/dL Normal 0.0-0.4 [facility] Comment on above: Performed By: #### S PE, KAPPA, ROSALEE SERUM ####[facility] ,#### FE and TIBC, [id number], OKSANA ####[place] [address] [place] Ugelg-6-Rhxjdbuu 0.8 g/dL Normal 0.4-1.0 [facility] Comment on above: Performed By: #### S PE, KAPPA, ROSALEE SERUM ####[facility] ,#### FE and TIBC, [id number], OKSANA ####[place] [address] [place] Beta Globulin 1.1 g/dL Normal 0.7-1.3 [facility] Comment on above: Performed By: #### S PE, KAPPA, ROSALEE SERUM ####[facility] ,#### FE and TIBC, [id number], OKSANA ####[place] [address] [place] Gamma Globulin 2.5 g/dL High 0.4-1.8 [facility] Comment on above: Performed By: #### S PE, KAPPA, ROSALEE SERUM ####[facility] ,#### FE and TIBC, [id number], OKSANA ####[address] Globulin (S) [Mass/Vol] 4.8 g/dL High 2.2-3.9 [facility] Comment on above: Performed By: #### S PE, KAPPA, ROSALEE SERUM ####[facility] ,#### FE and TIBC, [id number], OKSANA ####[address] M-Alvarez Not Observed Normal Not Observed [facility] Comment on above: Performed By: #### S PE, KAPPA, ROSALEE SERUM ####[facility] ,#### FE and TIBC, [id number], OKSANA ####[address] Protein [Mass/Vol] 7.1 g/dL Normal 6.0-8.5 [facility] Comment on above: Performed By: #### S PE, KAPPA, ROSALEE SERUM ####[facility] ,#### FE and TIBC, [id number], OKSANA ####[address] SPE-Note Normal . [facility] Comment on above: Result Comment: Prot ein electrophoresis scan will follow via computer, mail, or police justice delivery. Performed at: - [address] [id number] Event Av Operator: Colton Lane PhD, Phone: [phone] Performed By: #### S PE, KAPPA, ROSALEE SERUM ####[facility] ,#### FE and TIBC, [id number], OKSANA ####[address] [place] [address] [facility] Protein [Mass/volume] in Ser um or PlasmaOrdered By: Olga Lidia Mario on 11-15-2021 Protein [Mass/Vol] 7.1 g/dL 6.0-8.5 [facility] Protein [Mass/volume] in Uri neOrdered By: Olga Lidia Mario on 11-15-2021 Protein (U) [Mass/Vol] 170.8 mg/dL Not Estab. [facility] Protein.monoclonal/Protein.t otal in 24 hour Urine by ElectrophoresisOrdered By: Olga Lidia Mario on 11-15-2021 Protein.monoclonal Elph (24H U) [Mass fraction] Not observed % Not Observed [facility] Serum globulin measurement ( mass/volume)Ordered By: Olga Lidia Mario on 11-15-2021 Globulin (S) [Mass/Vol] 4.8 g/dL 2.2-3.9 [facility] Serum or plasma albumin/glob ulin mass ratioOrdered By: Olga Lidia Mario on 11-15-2021 Albumin/Globulin [Mass ratio] 0.5 {ratio} 0.7-1.7 [facility] Serum or plasma alpha 1 glob ulin measurement by electrophoresis (mass/volume)Ordered By: Olga Lidia Mario on 11-15-2021 Alpha 1 globulin Elph [Mass/Vol] 0.3 g/dL 0.0-0.4 [facility] Serum or plasma alpha 2 glob ulin measurement by electrophoresis (mass/volume)Ordered By: Olga Lidia Mario on 11-15-2021 Alpha 2 globulin Elph [Mass/Vol] 0.8 g/dL 0.4-1.0 [facility] Serum or plasma beta globuli n measurement by electrophoresis (mass/volume)Ordered By: Olga Lidia Mario on 11-15-2021 Beta globulin Elph [Mass/Vol] 1.1 g/dL 0.7-1.3 [facility] Serum or plasma gamma globul in measurement by electrophoresis (mass/volume)Ordered By: Olga Lidia Mario on 11-15-2021 Gamma globulin Elph [Mass/Vol] 2.5 g/dL 0.4-1.8 [facility] Type and Screenon 11-15-2021 ABO and Rh group Nom (Bld) Blood group O Rh(D) positive Normal [facility] Urine alpha 1 globulin/total protein by electrophoresisOrdered By: Olga Lidia Martin on 11-15-2021 Alpha 1 globulin Elph (U) [Mass fraction] 7.1 % . [facility] Urine alpha 2 globulin/total protein ratio by electrophoresisOrdered By: Olga Lidia Mario on 11-15-2021 Alpha 2 globulin Elph (U) [Mass fraction] 7.2 % . [facility] Urine beta globulin measurem ent by electrophoresis (mass/volume)Ordered By: Olga Lidia Martin on 11-15-2021 Beta globulin Elph (U) [Mass/Vol] 12.6 % . [facility] Vit. B12/Folate Profileon Cobalamin (Vitamin B12) [Mass/Vol] 825 pg/mL Normal 180-914 [facility] Comment on above: Performed By: #### S PE, KAPPA, ROSALEE SERUM ####[facility] ,#### FE and TIBC, [id number], OKSANA ####[facility] [id number] [place] [address] Folate 6.8 ng/mL Normal >5.9 [facility] Comment on above: Result Comment: Yessenia te reference range: >5.9 ng/ml The WHO technical consultation on folate and vitamin b12 deficiencies has determined that folate concentrations less than 4 ng/ml are considered deficient.PERFORMED BY:[address] [place], [place] [phone] MEDICAL DIRECTORCHRISTO PINO M.D. Performed By: #### S PE, KAPPA, ROSALEE SERUM ####[facility] ,#### FE and TIBC, [id number], OKSANA ####[place] [id number] [facility] Vitamin D 25 Hydroxy Totalon 11-15-2021 Vitamin D 25 Hydroxy Total 12.2 ng/mL Low 30-100 [facility] Comment on above: Result Comment: RENÉE MIN D STATUS 25([place])VITAMIN D RANGE (ng/mL) Deficient <20 Insufficient 20 to <30 Sufficient 30 to 100 Reference: Waylon MF,Xavier SUMNER, [place] RIOS, et al. Evaluation,treatment, and prevention of vitamin D deficiency; an Endocrine Society clinical practice guideline. JCEM. 2010; 96(7):1911-30.PERFORMED BY:[address] [place], [place] [phone] MEDICAL DIRECTORCHRISTO PINO M.D. Performed By: #### V [id number], BMP, DIFF CBC ####[address] [address] [facility] Albumin [Mass/volume] in Ser um or PlasmaOrdered By: Ivan Springer on 11-14-2021 Albumin [Mass/Vol] 2.4 g/dL Low 3.2-5.5 [facility] Comment on above: Performed By: #### C UBLD, LACTIC, CBC, PTT, CMP, DIFF CBC, PT ####[address] [address] [facility] Automated erythrocytes count in urine sediment (number/area)Ordered By: Ivan Springer on 11-14-2021 RBC Auto (Urine sed) [#/Area] 3-4 [HPF] 0-4 [facility] Automated leukocytes count i n urine sediment (number/area)Ordered By: Ivan Springer on 11-14-2021 WBC Auto (Urine sed) [#/Area] 1-2 [HPF] 0-4 [facility] Basic Metabolic Panelon 11-05 Calcium [Mass/Vol] 8.1 mg/dL Low 8.2-10.2 [facility] Comment on above: Performed By: #### B MP ####[address] [address] [facility] Chloride [Moles/Vol] 108 mmol/L Normal 95-114 [facility] Comment on above: Performed By: #### B MP ####[address] [address] [facility] CO2 [Moles/Vol] 17.2 mmol/L Low 22.0-30.0 [facility] Comment on above: Performed By: #### B MP ####[place] [address] [facility] Creatinine [Mass/Vol] 3.51 mg/dL High 0.64-1.27 [facility] Comment on above: Performed By: #### B MP ####[place] [address] [facility] Creatinine Clr Calc Pharmacy 25.76 [facility] Comment on above: Result Comment: PERF ORMED BY:[address] [place], [place] [phone] MEDICAL DIRECTORCHRISTO PINO M.D. Performed By: #### B MP ####[place] [address] [facility] Estimated GFR ( Cristo 21 [facility] Comment on above: Result Comment: GFR estimated reference range: According to KDOQI guidelines, <60 ml/min/1.73m2 is sufficient to diagnose a patient with chronic kidney disease. Performed By: #### B MP ####[place] [address] [facility] Performed By: #### C UBLD, LACTIC, CBC, PTT, CMP, DIFF CBC, PT ####[place] [address] [facility] Estimated GFR (Non- Am 17 [facility] Comment on above: Performed By: #### B MP ####[place] [address] [facility] Glucose [Mass/Vol] 108 mg/dL High 70-100 [facility] Comment on above: Result Comment: [place] Glucose Reference Range is dependent on time and content of last meal. Glucose of more than 200 mg/dL in a nonstressed, ambulatory subject supports the diagnosis of Diabetes Mellitus. ADA recommended reference range Performed By: #### B MP ####[place] [address] [facility] Potassium [Moles/Vol] 5.6 mmol/L High 3.5-5.1 [facility] Comment on above: Performed By: #### B MP ####[place] [address] [facility] Sodium [Moles/Vol] 135 mmol/L Low 136-146 [facility] Comment on above: Performed By: #### B MP ####[place] [address] [facility] Urea nitrogen [Mass/Vol] 34 mg/dL High 9-23 [facility] Comment on above: Performed By: #### B MP ####[place] [address] [facility] Performed By: #### C UBLD, LACTIC, CBC, PTT, CMP, DIFF CBC, PT ####[place] [address] [facility] Bilirubin Test strip Ql (U)O rdered By: Ivan Springer on 11-14-2021 Bilirubin Ql (U) Negative Negative [facility] Blood Cultureon 11-14-2021 Bacteria identified Cx Nom (Bld) NO GROWTH 5 DAYS PERFORMED BY: [facility] [address] [place] [address] PATHOLOGIST SOUND EFFECTS PERSON CHRISTO PINO M.D. [facility] Comment on above: Performed By: #### C UBLD, LACTIC, CBC, PTT, CMP, DIFF CBC, PT ####[place] [address] [facility] COVID-19 Antigenon 2 COVID-19 Antigen Normal [facility] Comment on above: Performed By: #### S OFIANEG, COVID-19 LEENA ####[place] [address] [facility] COVID-19 FRMCon 11-14-2021 SARS-CoV-2 (COVID-19) RNA JAYMIE+probe Ql (Unsp spec) Positive Critically abnormal Negative [facility] Comment on above: Order Comment: Healt hcare Worker?: N Result Comment: Posi tive results will only be called to Providers for the following groups of patients: Pre-Surgical Testing, Emergency Room, and Inpatients. Results called at 2141 on 11/14/21 Testing for SARS-CoV-2 by RT-PCR This test was developed and its performance characteristics determined by [employer] and validated at the [facility]. This test has not been FDA cleared [...] the authorization is terminated or revoked sooner.PERFORMED BY:[facility] [place], [place] [phone] MEDICAL DIRECTORCHRISTO PINO M.D. Performed By: #### C OVID 19 [facility] ####[facility] [place]her [place] [address] [facility] COVID-19 Positive/NegativeOr dered By: Ivan Springer on 11-14-2021 SARS-CoV-2 (COVID-19) N gene JAYMIE+probe Ql (Resp) Positive Negative [facility] Comment on above: Positive results odalys l only be called to Providers for the following groups of patients: Pre-Surgical Testing, Emergency Room, and Inpatients. Results called at 2141 on 11/14/21 Testing for SARS-CoV-2 by RT-PCR This test was developed and its performance characteristics determined by [employer] ([employer]) and validated at the [facility]. This test has not been FDA cleared [...] Pre-Surgical Testing, Emergency Room, and Inpatients.Results calledat 2140 on 11/14/21 Testing for SARS-CoV-2 by RT-PCRThis test was developed and its performance characteristics determined by [employer] and validated at the [facility]. This test has not been FDA cleared [...] (COVID-19) Ag IA.rapid Ql (Resp) Negative Negative [facility] Comment on above: This is a duplicate Leena SARS Antigen (KATHLEEN) result to be used for statistical tracking purpose only. Color Auto (U)Ordered By: Yang Springer on 11-14-2021 Color (U) Yellow Yellow [facility] Complete Blood Count Auto Di ffon 11-14-2021 Erythrocyte distribution width (RBC) [Ratio] 18.3 % High 12.0-14.8 [facility] Comment on above: Performed By: #### C UBLD, LACTIC, CBC, PTT, CMP, DIFF CBC, PT ####[address] Hematocrit (Bld) [Volume fraction] 27.9 % Low 38.8-50.0 [facility] Comment on above: Performed By: #### C UBLD, LACTIC, CBC, PTT, CMP, DIFF CBC, PT ####[address] Hemoglobin (Bld) [Mass/Vol] 8.7 g/dL Low 13.0-17.0 [facility] Comment on above: Performed By: #### C UBLD, LACTIC, CBC, PTT, CMP, DIFF CBC, PT ####[address] MCH (RBC) [Entitic mass] 27.4 pg Low 27.5-35.2 [facility] Comment on above: Performed By: #### C UBLD, LACTIC, CBC, PTT, CMP, DIFF CBC, PT ####[address] MCV (RBC) [Entitic vol] 87.6 fL Normal 83.5-101 [facility] Comment on above: Performed By: #### C UBLD, LACTIC, CBC, PTT, CMP, DIFF CBC, PT ####[address] Mean Corpuscular HGB Conc 31.3 g/dL Low 32.5-35.6 [facility] Comment on above: Performed By: #### C UBLD, LACTIC, CBC, PTT, CMP, DIFF CBC, PT ####[address] Nucleated RBC/100 WBC (Bld) [Ratio] 0.1 % Normal 0-0.5 [facility] Comment on above: Result Comment: PERF ORMED BY:[address] [place], [place] [phone] MEDICAL DIRECTORCHRISTO PINO M.D. Performed By: #### C UBLD, LACTIC, CBC, PTT, CMP, DIFF CBC, PT ####[address] Platelet mean volume (Bld) [Entitic vol] 10.0 fL Normal 6.6-10.1 [facility] Comment on above: Performed By: #### C UBLD, LACTIC, CBC, PTT, CMP, DIFF CBC, PT ####[address] Platelets (Bld) [#/Vol] 290 10*3/uL Normal 150-450 [facility] Comment on above: Performed By: #### C UBLD, LACTIC, CBC, PTT, CMP, DIFF CBC, PT ####[address] RBC (Bld) [#/Vol] 3.18 10*6/uL Low 3.90-5.60 [facility] Comment on above: Performed By: #### C UBLD, LACTIC, CBC, PTT, CMP, DIFF CBC, PT ####[address] WBC (Bld) [#/Vol] 19.8 10*3/uL High 4.5-11.0 [facility] Comment on above: Performed By: #### C UBLD, LACTIC, CBC, PTT, CMP, DIFF CBC, PT ####[place] [id number] [facility] Comprehensive Metabolic Pane fidel 11-14-2021 ALT [Catalytic activity/Vol] 18 U/L Normal 10-60 [facility] Comment on above: Performed By: #### C UBLD, LACTIC, CBC, PTT, CMP, DIFF CBC, PT ####[place] [id number] [facility] Calcium [Mass/Vol] 8.3 mg/dL Normal 8.2-10.2 [facility] Comment on above: Performed By: #### C UBLD, LACTIC, CBC, PTT, CMP, DIFF CBC, PT ####[address] [place] [address] [facility] Chloride [Moles/Vol] 107 mmol/L Normal 95-114 [facility] Comment on above: Performed By: #### C UBLD, LACTIC, CBC, PTT, CMP, DIFF CBC, PT ####[address] [address] [facility] CO2 [Moles/Vol] 17.9 mmol/L Low 22.0-30.0 [facility] Comment on above: Performed By: #### C UBLD, LACTIC, CBC, PTT, CMP, DIFF CBC, PT ####[address] [address] [facility] Creatinine [Mass/Vol] 3.43 mg/dL High 0.64-1.27 [facility] Comment on above: Performed By: #### C UBLD, LACTIC, CBC, PTT, CMP, DIFF CBC, PT ####[address] [address] [facility] Creatinine Clr Calc Pharmacy 26.63 [facility] Comment on above: Result Comment: PERF ORMED BY:[address] [place], [place] [phone] MEDICAL DIRECTORCHRISTO PINO M.D. Performed By: #### C UBLD, LACTIC, CBC, PTT, CMP, DIFF CBC, PT ####[address] [address] [facility] Estimated GFR (Non- Am 18 [facility] Comment on above: Performed By: #### C UBLD, LACTIC, CBC, PTT, CMP, DIFF CBC, PT ####[address] [address] [facility] Glucose [Mass/Vol] 162 mg/dL High 70-100 [facility] Comment on above: Result Comment: [place] Glucose Reference Range is dependent on time and content of last meal. Glucose of more than 200 mg/dL in a nonstressed, ambulatory subject supports the diagnosis of Diabetes Mellitus. ADA recommended reference range Performed By: #### C UBLD, LACTIC, CBC, PTT, CMP, DIFF CBC, PT ####[address] Potassium [Moles/Vol] 6.1 mmol/L Off scale high 3.5-5.1 [facility] Comment on above: Result Comment: Resu lts called at 1346 on 11/14/21 Performed By: #### C UBLD, LACTIC, CBC, PTT, CMP, DIFF CBC, PT ####[address] Sodium [Moles/Vol] 134 mmol/L Low 136-146 [facility] Comment on above: Performed By: #### C UBLD, LACTIC, CBC, PTT, CMP, DIFF CBC, PT ####[place] [address] [place] Diff and CBCon 11-14-2021 Anisocytosis Ql (Bld) Moderate Normal [facility] Comment on above: Performed By: #### C UBLD, LACTIC, CBC, PTT, CMP, DIFF CBC, PT ####[address] Hypochromasia Slight Normal [facility] Comment on above: Performed By: #### C UBLD, LACTIC, CBC, PTT, CMP, DIFF CBC, PT ####[address] Lymphocytes/100 WBC (Bld) 3.0 % Normal . [facility] Comment on above: Performed By: #### C UBLD, LACTIC, CBC, PTT, CMP, DIFF CBC, PT ####[place] [address] [place] Monocytes/100 WBC (Bld) 4.0 % Normal . [facility] Comment on above: Performed By: #### C UBLD, LACTIC, CBC, PTT, CMP, DIFF CBC, PT ####[address] Neutrophils/100 WBC (Bld) 97.0 % Normal . [facility] Comment on above: Performed By: #### C UBLD, LACTIC, CBC, PTT, CMP, DIFF CBC, PT ####[address] Ovalocytes Slight Normal [facility] Comment on above: Performed By: #### C UBLD, LACTIC, CBC, PTT, CMP, DIFF CBC, PT ####[place] [id number] [facility] Platelet Estimate Normal Normal Normal [facility] Comment on above: Performed By: #### C UBLD, LACTIC, CBC, PTT, CMP, DIFF CBC, PT ####[address] Platelet Morphology Normal Normal Normal [facility] Comment on above: Result Comment: PERF ORMED BY:[address] [place], [place] [phone] MEDICAL MOOSE PINO M.D. Performed By: #### C UBLD, LACTIC, CBC, PTT, CMP, DIFF CBC, PT ####[address] Poikilocytosis Moderate Normal [facility] Comment on above: Performed By: #### C UBLD, LACTIC, CBC, PTT, CMP, DIFF CBC, PT ####[address] Target Cells Slight Normal [facility] Comment on above: Performed By: #### C UBLD, LACTIC, CBC, PTT, CMP, DIFF CBC, PT ####[place] [id number] [facility] Dipstick and Microscopicon 0 11-14-2021 Appearance (U) Clear Normal Clear [facility] Comment on above: Order Comment: Name Collection Type:: Sanchez Catheter Performed By: #### C UU, ADDONUAPLUS ####[address] Bacteria,Urine None Seen Normal None Seen [facility] Comment on above: Order Comment: Name Collection Type:: Sanchez Catheter Performed By: #### C UU, ADDONUAPLUS ####[address] [address] [facility] Bilirubin,Urine Negative Normal Negative [facility] Comment on above: Order Comment: Name Collection Type:: Sanchez Catheter Performed By: #### C UU, ADDONUAPLUS ####[address] [address] [facility] Color (U) Yellow Normal Yellow [facility] Comment on above: Order Comment: Name Collection Type:: Sanchez Catheter Performed By: #### C UU, ADDONUAPLUS ####[address] [address] [facility] Glucose Ql (U) Normal Normal Normal [facility] Comment on above: Order Comment: Name Collection Type:: Sanchez Catheter Performed By: #### C UU, ADDONUAPLUS ####[place] [id number] [facility] Hyaline Casts,Urine 0-8 Normal 0-8 [facility] Comment on above: Order Comment: Name Collection Type:: Sanchez Catheter Result Comment: PERF ORMED BY:[address] [place], [place] [phone] MEDICAL MOOSE PINO M.D. Performed By: #### C UU, ADDONUAPLUS ####[address] [address] [facility] Ketones Ql (U) Negative Normal Negative [facility] Comment on above: Order Comment: Name Collection Type:: Sanchez Catheter Performed By: #### C UU, ADDONUAPLUS ####[place] [id number] [facility] Leukocyte esterase Test strip Ql (U) Negative Normal Negative [facility] Comment on above: Order Comment: Name Collection Type:: Sanchez Catheter Performed By: #### C UU, ADDONUAPLUS ####[place] [id number] [facility] Nitrite,Urine Negative Normal Negative [facility] Comment on above: Order Comment: Name Collection Type:: Sancehz Catheter Performed By: #### C UU, ADDONUAPLUS ####[place] [id number] [facility] Occult Blood,Urine Negative Normal Negative [facility] Comment on above: Order Comment: Name Collection Type:: Sanchez Catheter Result Comment: PERF ORMED BY:[address] [place], [place] [phone] MEDICAL DIRECTORCHRISTO PINO M.D. Performed By: #### C UU, ADDONUAPLUS ####[address] pH (U) 6.0 [pH] Normal 5.0-9.0 [facility] Comment on above: Order Comment: Name Collection Type:: Sanchez Catheter Performed By: #### C UU, ADDONUAPLUS ####[address] Protein,Urine >=1000 High Negative [facility] Comment on above: Order Comment: Name Collection Type:: Sanchez Catheter Performed By: #### C UU, ADDONUAPLUS ####[address] RBC,Urine 3-4 Normal 0-4 [facility] Comment on above: Order Comment: Name Collection Type:: Sanchez Catheter Performed By: #### C UU, ADDONUAPLUS ####[address] Specificy [place],Urine 1.017 Normal 1.001-1.030 [facility] Comment on above: Order Comment: Name Collection Type:: Sanchez Catheter Performed By: #### C UU, ADDONUAPLUS ####[address] Squamous Epithelial Cell,Urine 0-1 Normal 0-2 [facility] Comment on above: Order Comment: Name Collection Type:: Sanchez Catheter Performed By: #### C UU, ADDONUAPLUS ####[facility] [address] [place] [address] [facility] Urobilinogen,Urine Normal Normal Normal [facility] Comment on above: Order Comment: Name Collection Type:: Sanchez Catheter Performed By: #### C UU, ADDONUAPLUS ####[facility] [place] [address] [facility] WBC,Urine 1-2 Normal 0-4 [facility] Comment on above: Order Comment: Name Collection Type:: Sanchez Catheter Performed By: #### C UU, ADDONUAPLUS ####[address] [place] [address] [facility] ECG 12 lead ECGon 11-14-2021 ECG 12 lead ECG Normal [facility] Glucose Poct Glucometerson 0 11-14-2021 Glucose [Mass/Vol] 191 mg/dL Normal [facility] Comment on above: Result Comment: [place] Glucose Reference Range is dependent on time and content of last meal. Glucose of more than 200 mg/dL in a nonstressed, ambulatory subject supports the diagnosis of Diabetes Mellitus.PERFORMED BY:[place] [address] [address] [place], [place] [phone] MEDICAL DIRECTORCHRISTO PINO M.D. Performed By: #### G LULS ####Point of Care testing, Commemt1 Glu2: Cleaned Meter Normal [facility] Comment on above: Result Comment: PERF ORMED BY:[place] [address] [address] [place] [phone] MEDICAL DIRECTORCHRISTO PINO M.D. Performed By: #### G LULS ####Point of Care testing, Glucose [Mass/Vol] 97 mg/dL Normal [facility] Comment on above: Result Comment: [place] Glucose Reference Range is dependent on time and content of last meal. Glucose of more than 200 mg/dL in a nonstressed, ambulatory subject supports the diagnosis of Diabetes Mellitus. Performed By: #### G LULS ####Point of Care testing, Ketones Auto test strip (U) [Mass/Vol]Ordered By: Ivan Springer on 11-14-2021 Ketones (U) [Mass/Vol] Negative Negative [facility] - Chemistry and C hemistry - challengeOrdered By: Ivan Springer on 11-14-2021 CO2 [Moles/Vol] 19.4 mmol/L 24.0-29.0 [facility] HCO3 (Bld) [Moles/Vol] 18.2 mmol/L 23.0-29.0 [facility] - Microbiology an d Antimicrobial susceptibilityOrdered By: Ivan Springer on 11-14-2021 SARS-CoV-2 (COVID-19) RNA JAYMIE+probe Ql (Unsp spec) N/A [facility] Laboratory - UrinalysisOrder ed By: Ivan Springer on 11-14-2021 Hyaline casts LM Ql (Urine sed) 0-8 [LPF] 0-8 [facility] Lactic Acidon 11-14-2021 Lactate [Moles/Vol] 1.9 mmol/L Normal 0.5-2.2 [facility] Comment on above: Result Comment: PERF ORMED BY:[facility] [place], [place] [phone] MEDICAL DIRECTORCHRISTO PINO M.D. Performed By: #### C UBLD, LACTIC, CBC, PTT, CMP, DIFF CBC, PT ####[facility] [id number] [place] [address] [facility] Nitrite Test strip Ql (U)Ord ered By: Ivan Springer on 11-14-2021 Nitrite Ql (U) Negative Negative [facility] No Panel InformationOrdered By: Ivan Springer on 11-14-2021 Blood Gas Critical Value See comment [facility] Comment on above: Critical Value brower d on: 11/14/2021 at 13:32 Blood Gas Sample Site Venous Fir [facility] FiO2 21 % [facility] Venous Blood Base Excess -7.9 mmol/L -3.0-3.0 [facility] Venous Blood Oxygen Content 4.7 mmol/L 6.6-9.7 [facility] Venous Blood Oxygen Saturation 75.2 % 73.0-76.0 [facility] Venous Blood Partial Pressure CO2 39.3 mm[Hg] 38.0-50.0 [facility] Venous Blood Partial Pressure O2 43.7 mm[Hg] 35.0-45.0 [facility] Venous Blood pH 7.28 7.32-7.43 [facility] SARS Antigen (LFIA) [facility] Ovalocyte detectionOrdered B y: Ivan Springer on 11-14-2021 Ovalocytes LM Ql (Bld) Slight [facility] Partial Thromboplastin Timeo n 11-14-2021 aPTT Coag (Bld) [Time] 34.5 s Normal 25.1-36.5 [facility] Comment on above: Result Comment: PERF ORMED BY:[address] [place], [place] [phone] MEDICAL DIRECTORCHRISTO PINO M.D. Performed By: #### C UBLD, LACTIC, CBC, PTT, CMP, DIFF CBC, PT ####[facility] [id number] [place] [address] [facility] Protein Auto test strip (U) [Mass/Vol]Ordered By: Ivan Springer on 11-14-2021 Protein (U) [Mass/Vol] mg/dL Negative [facility] Protein [Mass/volume] in Ser um or PlasmaOrdered By: Ivan Springer on 11-14-2021 Protein [Mass/Vol] 8.2 g/dL High 6.1-7.9 [facility] Comment on above: Performed By: #### C UBLD, LACTIC, CBC, PTT, CMP, DIFF CBC, PT ####[address] [address] [facility] Prothrombin Time INRon 11-14 INR Coag (PPP) [Relative time] 1.2 {INR} Normal [facility] Comment on above: Result Comment: INR Therapeutic [...] LACTIC, CBC, PTT, CMP, DIFF CBC, PT ####[place] [address] PT Coag (PPP) [Time] 13.4 s High 9.0-12.9 [facility] Comment on above: Performed By: #### C UBLD, LACTIC, CBC, PTT, CMP, DIFF CBC, PT ####[address] Serum globulin measurement b y calculation (mass/volume)Ordered By: Ivan Springer on 11-14-2021 Globulin (S) [Mass/Vol] 5.8 g/dL Normal [facility] Comment on above: Performed By: #### C UBLD, LACTIC, CBC, PTT, CMP, DIFF CBC, PT ####[address] Serum or plasma alanine coy otransferase measurement without P-5'-P (enzymatic activiOrdered By: Ivan Springer on 11-14-2021 ALT No additional P-5'-P [Catalytic activity/Vol] 18 U/L 10-60 [facility] Serum or plasma albumin/glob ulin mass ratioOrdered By: Ivan Springer on 11-14-2021 Albumin/Globulin [Mass ratio] 0.4 {ratio} Normal [facility] Comment on above: Performed By: #### C UBLD, LACTIC, CBC, PTT, CMP, DIFF CBC, PT ####[address] Serum or plasma alkaline perico sphatase measurement (enzymatic activity/volume)Ordered By: Ivan Springer on 11-14-2021 ALP [Catalytic activity/Vol] 143 U/L High 32-92 [facility] Comment on above: Performed By: #### C UBLD, LACTIC, CBC, PTT, CMP, DIFF CBC, PT ####[place] [address] [facility] Serum or plasma aspartate am inotransferase measurement (enzymatic activity/volume)Ordered By: Ivan Springer on 11-14-2021 AST [Catalytic activity/Vol] 30 U/L Normal 10-42 [facility] Comment on above: Performed By: #### C UBLD, LACTIC, CBC, PTT, CMP, DIFF CBC, PT ####[address] [place] [id number] [facility] Serum or plasma total biliru bin measurement (mass/volume)Ordered By: Ivan Springer on 11-14-2021 Bilirubin [Mass/Vol] 0.6 mg/dL Normal 0.3-1.2 [facility] Comment on above: Performed By: #### C UBLD, LACTIC, CBC, PTT, CMP, DIFF CBC, PT ####[place] [address] [place] [id number] [facility] Leena Ag Negativeon 11-15-19 22 Leena Ag Negative Negative Normal Negative [facility] Comment on above: Result Comment: This is a duplicate Leena SARS Antigen (KATHLEEN) result to be used for statistical tracking purpose only.PERFORMED BY:[facility] [place], [place] [phone] MEDICAL DIRECTORCHRISTO PINO M.D. Performed By: #### S OFIANEG, COVID-19 LEENA ####[place] [address] [address] [place] [id number] [facility] Specific gravity Auto test s trip (U) [Rel density]Ordered By: Ivan Springer on 11-14-2021 Specific gravity (U) [Rel density] 1.017 1.001-1.030 [facility] Squamous epithelial cells de tection in urine sediment by light microscopyOrdered By: Ivan Springer on 11-14-2021 Epithelial cells.squamous LM Ql (Urine sed) 0-1 [HPF] 0-2 [facility] Urine Cultureon 11-14-2021 Bacteria identified Cx Nom (U) No Growth 2 Days PERFORMED BY: [facility] [address] [address] PATHOLOGIST SOUND EFFECTS PERSON CHRISTO PINO M.D. Normal [facility] Comment on above: Performed By: #### C UU, ADDONUAPLUS ####[facility] [place] [address] [facility] Urine bacteria detection by automated methodOrdered By: Ivan Springer on 11-14-2021 Bacteria Auto Ql (U) None seen None Seen [facility] Urine clarity by refractomet ry automatedOrdered By: Ivan Springer on 11-14-2021 Clarity Refractometry automated (U) Clear Clear [facility] Urine glucose measurement by automated test strip (mass/volume)Ordered By: Ivan Springer on 11-14-2021 Glucose Auto test strip (U) [Mass/Vol] Normal mg/dL Normal [facility] Urine hemoglobin detection b y automated test stripOrdered By: Ivan Springer on 11-14-2021 Hemoglobin Auto test strip Ql (U) Negative Negative [facility] Urine lactic acid measuremen tOrdered By: Ivan Springer on 11-14-2021 Lactate (U) [Moles/Vol] 1.9 mmol/L 0.5-2.2 [facility] Urine leukocyte esterase det ection by automated test stripOrdered By: Ivan Springer on 11-14-2021 Leukocyte esterase Auto test strip Ql (U) Negative Negative [facility] Urobilinogen Auto test strip (U) [Mass/Vol]Ordered By: Ivan Springer on 11-14-2021 Urobilinogen (U) [Mass/Vol] Normal mg/dL Normal [facility] Venous Blood Gason 2 CO2 [Moles/Vol] 19.4 mmol/L Low 24.0-29.0 [facility] Comment on above: Performed By: #### V BG ####Point of Care testing, HCO3 (Bld) [Moles/Vol] 18.2 mmol/L Low 23.0-29.0 [facility] Comment on above: Performed By: #### V BG ####Point of Care testing, Respiratory Critical Normal [facility] Comment on above: Result Comment: Crit ical Value called on: 11/14/2021 at 13:32PERFORMED BY:[facility] [place], [place] [phone] MEDICAL DIRECTORCHRISTO PINO M.D. Performed By: #### V BG ####Point of Care testing, VBG Base Excess -7.9 mmol/L Low -3.0-3.0 [facility] Comment on above: Performed By: #### V BG ####Point of Care testing, VBG Draw Site Venous Normal [facility] Comment on above: Performed By: #### V BG ####Point of Care testing, VBG Frac Inspired O2 21 % Normal [facility] Comment on above: Performed By: #### V BG ####Point of Care testing, VBG O2 Content 4.7 mmol/L Low 6.6-9.7 [facility] Comment on above: Performed By: #### V BG ####Point of Care testing, VBG Oxygen Saturation 75.2 % Normal 73.0-76.0 [facility] Comment on above: Performed By: #### V BG ####Point of Care testing, VBG PCO2 39.3 mm[Hg] Normal 38.0-50.0 [facility] Comment on above: Performed By: #### V BG ####Point of Care testing, VBG PH Venous PH 7.28 Low 7.32-7.43 [facility] Comment on above: Performed By: #### V BG ####Point of Care testing, VBG PO2 43.7 mm[Hg] Normal 35.0-45.0 [facility] Comment on above: Performed By: #### V BG ####Point of Care testing, XR foot RT min 3V*on 022 XR foot RT min 3V* Normal [facility] pH Auto test strip (U)Ordere d By: Ivan Springer on 11-14-2021 pH (U) 6.0 [pH] 5.0-9.0 [facility] Basophil percentageOrdered B y: Jose M Landry on 09-13-2021 Basophils/100 WBC (Bld) 9 % 1-3 [facility] Eosinophils/100 WBC (Bld) 9 % 1-3 [facility] Blood polychromasia detectio n by light microscopyOrdered By: Jose M Landry on 09-13-2021 Polychromasia LM Ql (Bld) Slight [facility] Diff and CBCon 09-13-2021 Anisocytosis Ql (Bld) Marked Normal [facility] Comment on above: Performed By: #### D IFF CBC ####[place] [id number] [facility] Eosinophils/100 WBC (Bld) 9 % High 1-3 [facility] Comment on above: Performed By: #### D IFF CBC ####[place] [id number] [facility] Erythrocyte distribution width (RBC) [Ratio] 19.9 % High 12.0-14.8 [facility] Comment on above: Performed By: #### D IFF CBC ####[place] [id number] [facility] Hematocrit (Bld) [Volume fraction] 26.3 % Low 38.8-50.0 [facility] Comment on above: Performed By: #### D IFF CBC ####[place] [id number] [facility] Hemoglobin (Bld) [Mass/Vol] 8.2 g/dL Low 13.0-17.0 [facility] Comment on above: Performed By: #### D IFF CBC ####[place] [id number] [facility] Large Platelets Slight Normal [facility] Comment on above: Result Comment: PERF ORMED BY:[address] [place], [place] [phone] MEDICAL DIRECTORCHRISTO PINO M.D. Performed By: #### D IFF CBC ####[place] [id number] [facility] Lymphocytes/100 WBC (Bld) 50 % High 18-42 [facility] Comment on above: Performed By: #### D IFF CBC ####[facility] [id number] [place] [address] [facility] MCH (RBC) [Entitic mass] 28.8 pg Normal 27.5-35.2 [facility] Comment on above: Performed By: #### D IFF CBC ####[place] [address] [place] [address] [facility] MCV (RBC) [Entitic vol] 92.5 fL Normal 83.5-101 [facility] Comment on above: Performed By: #### D IFF CBC ####[address] [address] [facility] Mean Corpuscular HGB Conc 31.1 g/dL Low 32.5-35.6 [facility] Comment on above: Performed By: #### D IFF CBC ####[place] [id number] [facility] Monocytes/100 WBC (Bld) 14 % High 2-11 [facility] Comment on above: Performed By: #### D IFF CBC ####[address] [address] [facility] Nucleated RBC/100 WBC (Bld) [Ratio] 5.1 % High 0-0.5 [facility] Comment on above: Performed By: #### D IFF CBC ####[address] [address] [facility] Nucleated Red Blood Cell 5 /100{WBC} High 0-0 [facility] Comment on above: Performed By: #### D IFF CBC ####[address] [address] [facility] Ovalocytes Slight Normal [facility] Comment on above: Performed By: #### D IFF CBC ####[address] [address] [facility] Platelet Estimate Normal Normal Normal [facility] Comment on above: Performed By: #### D IFF CBC ####[address] [address] [facility] Platelet mean volume (Bld) [Entitic vol] 11.0 fL High 6.6-10.1 [facility] Comment on above: Performed By: #### D IFF CBC ####[place] [place] [address] [facility] Platelets (Bld) [#/Vol] 310 10*3/uL Normal 150-450 [facility] Comment on above: Performed By: #### D IFF CBC ####[address] [address] [facility] Poikilocytosis Slight Normal [facility] Comment on above: Performed By: #### D IFF CBC ####[address] [address] [facility] Polychromasia Slight Normal [facility] Comment on above: Performed By: #### D IFF CBC ####[address] [address] [facility] RBC (Bld) [#/Vol] 2.84 10*6/uL Low 3.90-5.60 [facility] [facility] Comment on above: Performed By: #### D IFF CBC ####[address] [address] [facility] Segmented neutrophils/100 WBC (Bld) 27 % Low 50-70 [facility] Comment on above: Performed By: #### D IFF CBC ####[address] [address] [facility] Target Cells Slight Normal [facility] Comment on above: Performed By: #### D IFF CBC ####[address] [address] [facility] WBC (Bld) [#/Vol] 11.8 10*3/uL High 4.5-11.0 [facility] Comment on above: Performed By: #### D IFF CBC ####[address] [address] [facility] Lymphocytes/100 WBC Auto (Bl d)Ordered By: Jose M Landry on 09-13-2021 Lymphocytes/100 WBC (Bld) 50 % 18-42 [facility] MR pandey RT wo conon 09-14-19 22 MR foot RT wo con Normal [facility] Monocyte %Ordered By: Caroline Landry on 09-13-2021 Monocytes/100 WBC (Bld) 9 % 1-3 [facility] Monocytes/100 WBC Manual cnt (Bld)Ordered By: Jose M Landry on 09-13-2021 Monocytes/100 WBC (Bld) 14 % 2-11 [facility] No Panel InformationOrdered By: Jose M Landry on 09-13-2021 Large Platelets Slight [facility] Nucleated Red Blood Cells/100 WBC 5 /100{WBC} 0-0 [facility] Poikilocytosis Slight [facility] 5 /100{WBC} 0-0 [facility] Slight [facility] Ovalocyte detectionOrdered B y: Jose M Landry on 09-13-2021 Ovalocytes LM Ql (Bld) Slight [facility] Segmented neutrophils/100 WB C Manual cnt (Bld)Ordered By: Jose M Landry on 09-13-2021 Segmented neutrophils/100 WBC (Bld) 27 % 50-70 [facility] Diff and CBCon 09-05-2021 Anisocytosis Ql (Bld) Moderate Normal [facility] Comment on above: Performed By: #### D IFF CBC, FE and TIBC, OKSANA ####[facility] [id number] Eosinophils/100 WBC (Bld) 3 % Normal 1-3 [facility] Comment on above: Performed By: #### D IFF CBC, FE and TIBC, OKSANA ####[facility] [id number] [id number] [facility] Erythrocyte distribution width (RBC) [Ratio] 18.9 % High 12.0-14.8 [facility] Comment on above: Performed By: #### D IFF CBC, FE and TIBC, OKSANA ####[facility] [id number] [place] [id number] [facility] Hematocrit (Bld) [Volume fraction] 23.6 % Low 38.8-50.0 [facility] Comment on above: Performed By: #### D IFF CBC, FE and TIBC, OKSANA ####[address] [address] [facility] Hemoglobin (Bld) [Mass/Vol] 7.6 g/dL Low 13.0-17.0 [facility] Comment on above: Performed By: #### D IFF CBC, FE and TIBC, OKSANA ####[place] [id number] [facility] Hypochromasia Slight Normal [facility] Comment on above: Performed By: #### D IFF CBC, FE and TIBC, OKSANA ####[place] [id number] [facility] Lymphocytes/100 WBC (Bld) 35 % Normal 18-42 [facility] Comment on above: Performed By: #### D IFF CBC, FE and TIBC, OKSANA ####[place] [id number] [facility] MCH (RBC) [Entitic mass] 29.5 pg Normal 27.5-35.2 [facility] Comment on above: Performed By: #### D IFF CBC, FE and TIBC, OKSANA ####[place] [id number] [facility] MCV (RBC) [Entitic vol] 91.4 fL Normal 83.5-101 [facility] Comment on above: Performed By: #### D IFF CBC, FE and TIBC, OKSANA ####[place] [id number] [facility] Mean Corpuscular HGB Conc 32.3 g/dL Low 32.5-35.6 [facility] Comment on above: Performed By: #### D IFF CBC, FE and TIBC, OKSANA ####[place] [id number] [facility] Monocytes/100 WBC (Bld) 7 % Normal 2-11 [facility] Comment on above: Performed By: #### D IFF CBC, FE and TIBC, OKSANA ####[place] [id number] [facility] Nucleated RBC/100 WBC (Bld) [Ratio] 0.1 % Normal 0-0.5 [facility] Comment on above: Result Comment: PERF ORMED BY:[address] [address] [place] [phone] MEDICAL DIRECTORCHRISTO PINO M.D. Performed By: #### D IFF CBC, FE and TIBC, OKSANA ####[place] [id number] [facility] Platelet Estimate Normal Normal Normal [facility] Comment on above: Performed By: #### D IFF CBC, FE and TIBC, OKSANA ####[place] [id number] [facility] Platelet mean volume (Bld) [Entitic vol] 9.6 fL Normal 6.6-10.1 [facility] Comment on above: Performed By: #### D IFF CBC, FE and TIBC, OKSANA ####[place] [id number] [facility] Platelet Morphology Normal Normal Normal [facility] Comment on above: Result Comment: PERF ORMED BY:[address] [address] [address] [place], [place] [phone] MEDICAL DIRECTORCHRISTO PINO M.D. Performed By: #### D IFF CBC, FE and TIBC, OKSANA ####[place] [id number] [facility] Platelets (Bld) [#/Vol] 205 10*3/uL Normal 150-450 [facility] Comment on above: Performed By: #### D IFF CBC, FE and TIBC, OKSANA ####[address] [address] [facility] RBC (Bld) [#/Vol] 2.58 10*6/uL Low 3.90-5.60 [facility] Comment on above: Performed By: #### D IFF CBC, FE and TIBC, OKSANA ####[place] [id number] [facility] Segmented neutrophils/100 WBC (Bld) 55 % Normal 50-70 [facility] Comment on above: Performed By: #### D IFF CBC, FE and TIBC, OKSANA ####[address] Target Cells Slight Normal [facility] Comment on above: Performed By: #### D IFF CBC, FE and TIBC, OKSANA ####[address] WBC (Bld) [#/Vol] 10.4 10*3/uL Normal 4.5-11.0 [facility] Comment on above: Performed By: #### D IFF CBC, FE and TIBC, OKSANA ####[address] Ferritinon 09-05-2021 Ferritin [Mass/Vol] 30.4 ng/mL Normal 23.9-336.2 [facility] Comment on above: Result Comment: PERF ORMED BY:[address] [place], [place] [phone] MEDICAL DIRECTORCHRISTO PINO M.D. Performed By: #### D IFF CBC, FE and TIBC, OKSANA ####[address] Iron and TIBC Profileon % Iron Saturation 28.0 % Normal 20-50 [facility] Comment on above: Performed By: #### D IFF CBC, FE and TIBC, OKSANA ####[place] [id number] [facility] Iron [Mass/Vol] 89 ug/dL Normal 40-160 [facility] Comment on above: Performed By: #### D IFF CBC, FE and TIBC, OKSANA ####[address] Total Iron Binding Capacity 312 ug/dL Normal 255-450 [facility] Comment on above: Performed By: #### D IFF CBC, FE and TIBC, OKSANA ####[address] [place] [address] [facility] Transferrin [Mass/Vol] 223 mg/dL Normal 180-380 [facility] Comment on above: Performed By: #### D IFF CBC, FE and TIBC, OKSANA ####[facility] [id number] [place] [address] [facility] Laboratory - Hematology and Cell countsOrdered By: Jose M Landry on 11-20-2020 Band form neutrophils/100 WBC (Bld) 1 % 0-5 [facility] Lymphocytes/100 WBC Manual c nt (Bld)Ordered By: Jose M Landry on 11-20-2020 Lymphocytes/100 WBC (Bld) 2 % 0-12 [facility] Metamyelocytes/100 WBC Manua l cnt (Bld)Ordered By: Jose M Landry on 11-20-2020 Metamyelocytes/100 WBC (Bld) 1 % 0-0 [facility] No Panel InformationOrdered By: Jose M Landry on 11-20-2020 1 % 0-5 [facility] Erythrocyte [place] bod y detectionon 07-18-2020 [facility] bodies LM Ql (Bld) Moderate [facility] Erythrocyte sedimentation ra te by Photometric methodon 06-26-2020 ESR Photometric method (Bld) [Velocity] 128 mm/hr 0-19 [facility] No Panel Informationon 06-26 Crenated Cell Slight [facility] Methylmalonic Acid Comment See comment . [facility] Comment on above: This test was develo ped and its performance characteristics determined by [employer]. It has not been cleared or approved by the Food and Drug Administration. Performed at: [facility] [employer] [id number] Event Av Operator: Fabienne Harmon MD, Phone: [phone] This test was develo ped and its performance characteristicsdetermined by [employer]. It has not been cleared orapproved by the Food and Drug Administration.Performed at: - [employer] [id number] Director: Fabienne Harmon MD, Phone: [phone] [facility] See comment . [facility] Serum or plasma erythropoiet in (EPO) measurement (units/volume)on 06-26-2020 Erythropoietin (EPO) Qn 12.1 mIU/mL 2.6-18.5 [facility] Comment on above: [employer] DxI 800 Immunoassay System Values obtained with different assay methods or kits cannot be used interchangeably. Results cannot be interpreted as absolute evidence of the presence or absence of malignant disease. Performed at: [facility] [id number] Event Av Operator: Colton Lane PhD, Phone: [phone] [employer] DxI 800 Immunoassay SystemValues obtained with different assay methods or kits cannotbe used interchangeably. Results cannot be interpreted asabsolute evidence of the presence or absence of malignantdisease.Performed at: [facility] [id number] Director: Colton Lane PhD, Phone: [phone] Serum or plasma methylmalona te measurement (moles/volume)on 06-26-2020 Methylmalonate [Moles/Vol] 741 nmol/L 0-378 [facility] Vital Signs Date Time Vital Sign Value Performing Clinician Facility 12-02-2023 10:52-0400 Body height 187.[address] [facility] 12-02-2023 10:52-0400 Body mass index (BMI) [Ratio] 29.9 kg/m2 PHYSICIAN [facility] 12-02-2023 10:52-0400 Body temperature 97.8 [degF] PHYSICIAN [facility] 12-02-2023 10:52-0400 Body weight 106 [address] [facility] 12-02-2023 10:52-0400 Diastolic blood pressure 62 mm[Hg] PHYSICIAN [facility] 12-02-2023 10:52-0400 Heart rate 68 /min PHYSICIAN [facility] 12-02-2023 10:52-0400 Respiratory rate 16 /min PHYSICIAN [facility] 12-02-2023 10:52-0400 SaO2% (BldA) [Mass fraction] 96 % PHYSICIAN [facility] 12-02-2023 10:52-0400 Systolic blood pressure 104 mm[Hg] PHYSICIAN NO [facility] 11-11-2023 10:12-0400 Body height 187.96 cm PHYSICIAN NO [facility] 11-11-2023 10:12-0400 Body mass index (BMI) [Ratio] 30.2 kg/m2 PHYSICIAN NO [facility] 11-11-2023 10:12-0400 Body weight 106.59 kg PHYSICIAN NO [facility] 11-11-2023 10:12-0400 Diastolic blood pressure 58 mm[Hg] PHYSICIAN NO [facility] 11-11-2023 10:12-0400 Systolic blood pressure 100 mm[Hg] PHYSICIAN NO [facility] 10-28-2023 14:51-0400 Diastolic blood pressure 79 mm[Hg] PHYSICIAN NO [facility] 10-28-2023 14:51-0400 Heart rate 83 /min PHYSICIAN NO [facility] 10-28-2023 14:51-0400 Respiratory rate 14 /min PHYSICIAN NO [facility] 10-28-2023 14:51-0400 SaO2% (BldA) [Mass fraction] 98 % PHYSICIAN NO [facility] 10-28-2023 14:51-0400 Systolic blood pressure 142 mm[Hg] PHYSICIAN NO [facility] 10-28-2023 13:21-0400 Body height 187.96 cm PHYSICIAN NO [facility] 10-28-2023 13:21-0400 Body weight 102.05 kg PHYSICIAN NO [facility] 10-21-2023 09:49-0400 Body height 187.96 cm PHYSICIAN NO [facility] 10-21-2023 09:49-0400 Body mass index (BMI) [Ratio] 29.7 kg/m2 PHYSICIAN NO [facility] 10-21-2023 09:49-0400 Body temperature 98.2 [degF] PHYSICIAN NO [facility] 10-21-2023 09:49-0400 Body weight 105 kg PHYSICIAN NO [facility] 10-21-2023 09:49-0400 Diastolic blood pressure 80 mm[Hg] PHYSICIAN NO [facility] 10-21-2023 09:49-0400 Heart rate 68 /min PHYSICIAN NO [facility] 10-21-2023 09:49-0400 Respiratory rate 16 /min PHYSICIAN NO [facility] 10-21-2023 09:49-0400 SaO2% (BldA) [Mass fraction] 98 % PHYSICIAN NO [facility] 10-21-2023 09:49-0400 Systolic blood pressure 122 mm[Hg] PHYSICIAN NO [facility] 09-09-2023 11:36-0400 Body height 187.96 cm [facility] Work Phone: [facility] 09-09-2023 11:36-0400 Body mass index (BMI) [Ratio] 29.7 kg/m2 [facility] Work Phone: [facility] 09-09-2023 11:36-0400 Body temperature 97.6 [degF] [facility] Work Phone: [facility] 09-09-2023 11:36-0400 Body weight 105 kg [facility] Work Phone: [facility] 09-09-2023 11:36-0400 Diastolic blood pressure 82 mm[Hg] [facility] Work Phone: [facility] 09-09-2023 11:36-0400 Heart rate 68 /min [facility] Work Phone: [facility] 09-09-2023 11:36-0400 Respiratory rate 16 /min [facility] Work Phone: [facility] 09-09-2023 11:36-0400 SaO2% (BldA) [Mass fraction] 98 % [facility] Work Phone: [facility] 09-09-2023 11:36-0400 Systolic blood pressure 126 mm[Hg] [facility] Work Phone: [facility] 08-05-2023 15:00-0400 Diastolic blood pressure 66 mm[Hg] [facility] Work Phone: [facility] 08-05-2023 15:00-0400 Heart rate 82 /min [facility] Work Phone: [facility] 08-05-2023 15:00-0400 Respiratory rate 16 /min [facility] Work Phone: [facility] 08-05-2023 15:00-0400 SaO2% (BldA) [Mass fraction] 94 % [facility] Work Phone: [facility] 08-05-2023 15:00-0400 Systolic blood pressure 133 mm[Hg] [facility] Work Phone: [facility] 08-05-2023 13:50-0400 Inhaled oxygen flow rate 2 L/min [facility] Work Phone: [facility] 08-05-2023 11:54-0400 Body height 187.96 cm [facility] Work Phone: [facility] 08-05-2023 11:54-0400 Body weight 105.23 kg [facility] Work Phone: [facility] 08-05-2023 10:15-0400 Body height 187.96 cm [facility] Work Phone: [facility] 08-05-2023 10:15-0400 Body mass index (BMI) [Ratio] 29.7 kg/m2 [facility] Work Phone: [facility] 08-05-2023 10:15-0400 Body temperature 96.6 [degF] [facility] Work Phone: [facility] 08-05-2023 10:15-0400 Body weight 105.23 kg [facility] Work Phone: [facility] 08-05-2023 10:15-0400 Diastolic blood pressure 60 mm[Hg] [facility] Work Phone: [facility] 08-05-2023 10:15-0400 Heart rate 74 /min [facility] Work Phone: [facility] 08-05-2023 10:15-0400 SaO2% (BldA) [Mass fraction] 97 % [facility] Work Phone: [facility] 08-05-2023 10:15-0400 Systolic blood pressure 100 mm[Hg] [facility] Work Phone: [facility] 07-22-2023 11:37-0400 Body height 187.96 cm [facility] Work Phone: [facility] 07-22-2023 11:37-0400 Body mass index (BMI) [Ratio] 30.2 kg/m2 [facility] Work Phone: [facility] 07-22-2023 11:37-0400 Body temperature 97.6 [degF] [facility] Work Phone: [facility] 07-22-2023 11:37-0400 Body weight 106.59 kg [facility] Work Phone: [facility] 07-22-2023 11:37-0400 Diastolic blood pressure 78 mm[Hg] [facility] Work Phone: [facility] 07-22-2023 11:37-0400 Heart rate 80 /min [facility] Work Phone: [facility] 07-22-2023 11:37-0400 Respiratory rate 16 /min [facility] Work Phone: [facility] 07-22-2023 11:37-0400 SaO2% (BldA) [Mass fraction] 98 % [facility] Work Phone: [facility] 07-22-2023 11:37-0400 Systolic blood pressure 128 mm[Hg] [facility] Work Phone: [facility] 07-22-2023 11:13-0400 Body temperature 98 [degF] [facility] Work Phone: [facility] 07-22-2023 11:13-0400 Diastolic blood pressure 61 mm[Hg] [facility] Work Phone: [facility] 07-22-2023 11:13-0400 Heart rate 79 /min Services [facility] Work Phone: [facility] 07-22-2023 11:13-0400 Respiratory rate 18 /min Services [facility] Work Phone: [facility] 07-22-2023 11:13-0400 SaO2% (BldA) [Mass fraction] 99 % [facility] Work Phone: [facility] 07-22-2023 11:13-0400 Systolic blood pressure 133 mm[Hg] Services [facility] Work Phone: [facility] 07-10-2023 16:52-0400 Body temperature 99.1 [degF] [facility] Mervat Spasic Work Phone: [facility] 07-10-2023 16:52-0400 Diastolic blood pressure 68 mm[Hg] [facility] Sp[facility] Work Phone: [facility] 07-10-2023 16:52-0400 Heart rate 83 /min [facility] M[facility] Spasic Work Phone: [facility] 07-10-2023 16:52-0400 Respiratory rate 18 /min [facility] Mervat Spasic Work Phone: [facility] 07-10-2023 16:52-0400 SaO2% (BldA) [Mass fraction] 95 % [facility] Merv[facility] Spasic Work Phone: [facility] 07-10-2023 16:52-0400 Systolic blood pressure 151 mm[Hg] [facility] Mervat Spasic Work Phone: [facility] 07-03-2023 09:30-0400 Diastolic blood pressure 81 mm[Hg] [facility] Mervat Spasic Work Phone: [facility] 03-28-2024 09:30-0400 Heart rate 79 /min [facility] Mervat Spasic Work Phone: [facility] 07-03-2023 09:30-0400 Respiratory rate 14 /min [facility] Mervat Spasic Work Phone: [facility] 07-03-2023 09:30-0400 SaO2% (BldA) [Mass fraction] 95 % [facility] Mervat Spasic Work Phone: [facility] 07-03-2023 09:30-0400 Systolic blood pressure 152 mm[Hg] [facility] Mervat Spasic Work Phone: [facility] 07-03-2023 08:18-0400 Body height 187.96 cm [facility] Mervat Spasic Work Phone: [facility] 07-03-2023 08:18-0400 Body weight 106.59 kg [facility] Mervat Spasic Work Phone: [facility] 06-24-2023 11:20-0400 Body height 182.88 cm [facility] Mervat Spasic Work Phone: [facility] 06-24-2023 11:20-0400 Body mass index (BMI) [Ratio] 31.8 kg/m2 [facility] Merv[facility] Spasic Work Phone: [facility] 06-24-2023 11:20-0400 Body temperature 97.6 [degF] [facility] Mervat Spasic Work Phone: [facility] 06-24-2023 11:20-0400 Body weight 106.59 kg [facility] Mervat Spasic Work Phone: [facility] 06-24-2023 11:20-0400 Diastolic blood pressure 74 mm[Hg] [facility] Mervat Spasic Work Phone: [facility] 06-24-2023 11:20-0400 Heart rate 88 /min [facility] Spasic Work Phone: [facility] 06-24-2023 11:20-0400 Respiratory rate 16 /min [facility] Mervat Spasic Work Phone: [facility] 06-24-2023 11:20-0400 SaO2% (BldA) [Mass fraction] 98 % [facility] Mervat Spasic Work Phone: [facility] 06-24-2023 11:20-0400 Systolic blood pressure 132 mm[Hg] [facility] Merv[facility] Spasic Work Phone: [facility] 05-08-2023 10:15-0500 Body height 182.88 cm Master Mauricio Other [facility] 05-08-2023 10:15-0500 Body mass index (BMI) [Ratio] 33.22 kg/m2 Master Mauricio Other [facility] [employer] Other 05-08-2023 10:15-0500 Body temperature 97.6 [degF] Master Mauricio Other [facility] [employer] Other 05-08-2023 10:15-0500 Body weight 111.13 kg Master Mauricio Other [facility] 05-08-2023 10:15-0500 Diastolic blood pressure 60 mm[Hg] Master Mauricio Other [facility] 05-08-2023 10:15-0500 SaO2% (BldA) [Mass fraction] 97 % Master Mauricio Other [employer] Other 05-08-2023 10:15-0500 Systolic blood pressure 138 mm[Hg] Master Mauricio Other [facility] 04-16-2023 13:15-0500 Diastolic blood pressure 86 mm[Hg] TYSON Maddie Dixon Work Phone: [facility] 04-16-2023 13:15-0500 Heart rate 82 /min CLAIMS ACCOUNT MANAGERChristina Dixon Work Phone: [facility] 04-16-2023 13:15-0500 Respiratory rate 16 /min CLAIMS ACCOUNT MANAGERChristina Dixon Work Phone: [facility] 04-16-2023 13:15-0500 SaO2% (BldA) [Mass fraction] 100 % CLAIMS ACCOUNT MANAGERChristina Dixon Work Phone: [facility] 04-16-2023 13:15-0500 Systolic blood pressure 170 mm[Hg] CLAIMS ACCOUNT MANAGERChristina Dixon Work Phone: [facility] 04-16-2023 11:00-0500 Inhaled oxygen flow rate 6 L/min CLAIMS ACCOUNT MANAGERChristina Dixon Work Phone: [facility] 04-16-2023 09:33-0500 Body mass index (BMI) [Ratio] 30.2 kg/m2 CLAIMS ACCOUNT MANAGERChristina Dixon Work Phone: [facility] 04-16-2023 08:57-0500 Body height 187.96 cm CLAIMS ACCOUNT MANAGERChristina Dixon Work Phone: [facility] 04-16-2023 08:57-0500 Body weight 106.59 kg CLAIMS ACCOUNT MANAGERChristina Dixon Work Phone: [facility] 04-16-2023 07:54-0500 Body temperature 97.7 [degF] TYSON Dixon Work Phone: [facility] 03-11-2023 10:00-0500 Body height 182.88 cm Fawad Rocha Other [facility] 03-11-2023 10:00-0500 Body mass index (BMI) [Ratio] 33.22 kg/m2 Fawad Rocha Other [employer] Other 03-11-2023 10:00-0500 Body temperature 96.7 [degF] Fawad Rocha Other [employer] Other 03-11-2023 10:00-0500 Body weight 111.13 kg Fawad Rocha Other [facility] 03-11-2023 10:00-0500 Diastolic blood pressure 80 mm[Hg] Fawad Salinasreclaire Other [facility] 03-11-2023 10:00-0500 SaO2% (BldA) [Mass fraction] 98 % Fawad Salinasreclaire Other [facility] [employer] Other 03-11-2023 10:00-0500 Systolic blood pressure 152 mm[Hg] Fawad Salinasrer Other [facility] 02-13-2023 14:00-0500 Body height 182.88 cm Christianoricki Monterrosovaleriano Other [employer] Other 02-13-2023 14:00-0500 Body temperature 97.8 [degF] Johan Claudia Other [employer] Other 02-13-2023 14:00-0500 Diastolic blood pressure 77 mm[Hg] Johan Taylor Other [employer] Other 02-13-2023 14:00-0500 Respiratory rate 18 /min Johan Taylor Other [employer] Other 02-13-2023 14:00-0500 SaO2% (BldA) [Mass fraction] 99 % Johan Monterrosovaleriano Other [employer] Other 02-13-2023 14:00-0500 Systolic blood pressure 137 mm[Hg] Essam Elashi Other [facility] [employer] Other 01-17-2023 13:19-0400 Body height 187.96 cm [facility] Mervat Spasic Work Phone: [facility] 01-17-2023 13:19-0400 Body temperature 97.9 [degF] [facility] Mervat Spasic Work Phone: [facility] 01-17-2023 13:19-0400 Body weight 108.8 kg [facility] Mervat Spasic Work Phone: [facility] 01-17-2023 13:19-0400 Diastolic blood pressure 83 mm[Hg] [facility] Mervat Spasic Work Phone: [facility] 01-17-2023 13:19-0400 Heart rate 88 /min [facility] Mervat Spasic Work Phone: [facility] 01-17-2023 13:19-0400 Respiratory rate 18 /min [facility] Mervat Spasic Work Phone: [facility] 01-17-2023 13:19-0400 SaO2% (BldA) [Mass fraction] 98 % [facility] Mervat Spasic Work Phone: [facility] 01-17-2023 13:19-0400 Systolic blood pressure 169 mm[Hg] [facility] Mervat Spasic Work Phone: [facility] 12-19-2022 15:15-0400 Blood Pressure Location Kiko Lue [facility] 12-19-2022 15:15-0400 Diastolic blood pressure 81 mm[Hg] Kiko Lue [facility] 12-19-2022 15:15-0400 Heart rate 86 /min Kiko Lue [facility] 12-19-2022 15:15-0400 Systolic blood pressure 137 mm[Hg] Kiko Corbett [facility] 12-12-2022 15:00-0400 Body height 182.88 cm oJhan Monterrosovaleriano Other [employer] Other 12-12-2022 15:00-0400 Body temperature 97.2 [degF] Johan Monterrosovaleriano Other [facility] [employer] Other 12-12-2022 15:00-0400 Diastolic blood pressure 83 mm[Hg] Johan Monterrosovaleriano Other [facility] Other 12-12-2022 15:00-0400 Respiratory rate 18 /min Johan Monterrosovaleriano Other [facility] Other 12-12-2022 15:00-0400 SaO2% (BldA) [Mass fraction] 99 % Johan Taylor Other [facility] Other 12-12-2022 15:00-0400 Systolic blood pressure 155 mm[Hg] Johan Claudia Other [facility] Other 11-07-2022 14:30-0400 Body height 182.88 cm Riya Pitt Other [facility] Other 11-07-2022 14:30-0400 Body mass index (BMI) [Ratio] 32.55 kg/m2 Riya Pitt Other [facility] Other 11-07-2022 14:30-0400 Body temperature 97.7 [degF] Riya Pitt Other [facility] Other 11-07-2022 14:30-0400 Body weight 108.86 kg Riya Pitt Other [facility] Other 11-07-2022 14:30-0400 Diastolic blood pressure 80 mm[Hg] Riya Pitt Other [facility] Other 11-07-2022 14:30-0400 Systolic blood pressure 149 mm[Hg] Riya Pitt Other [facility] Other 10-24-2022 14:23-0400 Body temperature 97.6 [degF] DO Maye Bunting Work Phone: [facility] 10-24-2022 14:23-0400 Diastolic blood pressure 83 mm[Hg] DO Maye Bunting Work Phone: [facility] 10-24-2022 14:23-0400 Heart rate 83 /min DO Maye Bunting Work Phone: [facility] 10-24-2022 14:23-0400 Respiratory rate 18 /min DO Maye Bunting Work Phone: [facility] 10-24-2022 14:23-0400 SaO2% (BldA) [Mass fraction] 97 % DO Maye Bunting Work Phone: [facility] 10-24-2022 14:23-0400 Systolic blood pressure 150 mm[Hg] DO Maye Bunting Work Phone: [facility] 10-24-2022 06:00-0400 Body weight 112.9 kg DO Maye Bunting Work Phone: [facility] 10-23-2022 14:10-0400 Body height 187.96 cm DO Maye Bunting Work Phone: [facility] 10-22-2022 21:17-0400 Body temperature 98.4 [degF] DO Maye Bunting Work Phone: [facility] 10-22-2022 21:17-0400 Diastolic blood pressure 87 mm[Hg] DO Maye Bunting Work Phone: [facility] 10-22-2022 21:17-0400 Systolic blood pressure 161 mm[Hg] DO Maye Bunting Work Phone: [facility] 10-22-2022 21:14-0400 Heart rate 95 /min DO Maye Bunting Work Phone: [facility] 10-22-2022 21:14-0400 Respiratory rate 20 /min DO Maye Bunting Work Phone: [facility] 10-22-2022 21:14-0400 SaO2% (BldA) [Mass fraction] 98 % DO Maye Bunting Work Phone: [facility] 10-22-2022 15:41-0400 Body height 187.96 cm DO Maye Bunting Work Phone: [facility] 10-22-2022 15:41-0400 Body weight 108.86 kg DO Maye Bunting Work Phone: [facility] 10-21-2022 12:47-0400 Body height 187.96 cm DO Maye Bunting Work Phone: [facility] 10-21-2022 12:47-0400 Body weight 108.86 kg DO Maye Bunting Work Phone: [facility] 10-21-2022 12:46-0400 Body temperature 98 [degF] DO Maye Bunting Work Phone: [facility] 10-21-2022 12:46-0400 Diastolic blood pressure 88 mm[Hg] DO Maye Bunting Work Phone: [facility] 10-21-2022 12:46-0400 Heart rate 98 /min DO Maye Bunting Work Phone: [facility] 10-21-2022 12:46-0400 Respiratory rate 18 /min DO Maye Bunting Work Phone: [facility] 10-21-2022 12:46-0400 SaO2% (BldA) [Mass fraction] 98 % DO Maye Bunting Work Phone: [facility] 10-21-2022 12:46-0400 Systolic blood pressure 151 mm[Hg] DO Maye Bunting Work Phone: [facility] 10-15-2022 11:07-0400 Body height 187.96 cm DO Maye Bunting Work Phone: [facility] 10-15-2022 11:07-0400 Body temperature 98.2 [degF] DO Maye Bunting Work Phone: [facility] 10-15-2022 11:07-0400 Body weight 106.59 kg DO Maye Bunting Work Phone: [facility] 10-15-2022 11:07-0400 Diastolic blood pressure 83 mm[Hg] DO Maye Bunting Work Phone: [facility] 10-15-2022 11:07-0400 Heart rate 96 /min DO Maye Bunting Work Phone: [facility] 10-15-2022 11:07-0400 Respiratory rate 18 /min DO Maye Bunting Work Phone: [facility] 10-15-2022 11:07-0400 SaO2% (BldA) [Mass fraction] 100 % DO Maye Bunting Work Phone: [facility] 10-15-2022 11:07-0400 Systolic blood pressure 174 mm[Hg] DO Maye Bunting Work Phone: [facility] 10-13-2022 12:00-0400 Diastolic blood pressure 81 mm[Hg] DO Maye Bunting Work Phone: [facility] 10-13-2022 12:00-0400 Heart rate 97 /min DO Maye Bunting Work Phone: [facility] 10-13-2022 12:00-0400 Respiratory rate 20 /min DO Maye Bunting Work Phone: [facility] 10-13-2022 12:00-0400 SaO2% (BldA) [Mass fraction] 97 % DO Maye Bunting Work Phone: [facility] 10-13-2022 12:00-0400 Systolic blood pressure 159 mm[Hg] DO Maye Bunting Work Phone: [facility] 10-13-2022 09:24-0400 Body temperature 97.5 [degF] DO Maye Bunting Work Phone: [facility] 10-13-2022 09:23-0400 Body height 187.96 cm DO Maye Bunting Work Phone: [facility] 10-13-2022 09:23-0400 Body weight 106.59 kg DO Maye Bunting Work Phone: [facility] 09-12-2022 11:17-0400 Body temperature 97.7 [degF] DO Maye Bunting Work Phone: [facility] 09-12-2022 11:17-0400 Diastolic blood pressure 69 mm[Hg] DO Maye Bunting Work Phone: [facility] 09-12-2022 11:17-0400 Heart rate 84 /min DO Maye Bunting Work Phone: [facility] 09-12-2022 11:17-0400 Respiratory rate 16 /min DO Maye Bunting Work Phone: [facility] 09-12-2022 11:17-0400 SaO2% (BldA) [Mass fraction] 99 % DO Maye Bunting Work Phone: [facility] 09-12-2022 11:17-0400 Systolic blood pressure 135 mm[Hg] DO Maye Bunting Work Phone: [facility] 09-12-2022 05:19-0400 Body weight 110.6 kg DO Maye Bunting Work Phone: [facility] 09-11-2022 11:45-0400 Body height 187.96 cm DO Maye Bunting Work Phone: 9(029)[phone] [place] [address] 09-10-2022 16:20-0400 Body temperature 97.5 [degF] DO Maye Bunting Work Phone: [facility] 09-10-2022 16:20-0400 Diastolic blood pressure 89 mm[Hg] DO Maye Bunting Work Phone: 5(908)226-692760 [place] [address] 09-10-2022 16:20-0400 Heart rate 95 /min DO Maye Bunting Work Phone: 4(635)952-053560 [place] [address] 09-10-2022 16:20-0400 Respiratory rate 16 /min DO Maye Bunting Work Phone: [facility] 09-10-2022 16:20-0400 SaO2% (BldA) [Mass fraction] 100 % DO Maye Bunting Work Phone: [facility] 09-10-2022 16:20-0400 Systolic blood pressure 203 mm[Hg] DO Maye Bunting Work Phone: [facility] 09-10-2022 10:26-0400 Body height 187.96 cm DO Maye Bunting Work Phone: [facility] 09-10-2022 10:26-0400 Body weight 104.32 kg DO Maye Bunting Work Phone: [facility] 08-31-2022 07:57-0400 Body temperature 98.1 [degF] DO Maye Bunting Work Phone: [facility] 08-31-2022 07:57-0400 Diastolic blood pressure 80 mm[Hg] DO Maye Bunting Work Phone: [facility] 08-31-2022 07:57-0400 Heart rate 75 /min DO Maye Bunting Work Phone: [facility] 08-31-2022 07:57-0400 Respiratory rate 17 /min DO Maye Bunting Work Phone: [facility] 08-31-2022 07:57-0400 SaO2% (BldA) [Mass fraction] 99 % DO Maye Bunting Work Phone: [facility] 08-31-2022 07:57-0400 Systolic blood pressure 149 mm[Hg] DO Maye Bunting Work Phone: [facility] 08-31-2022 06:34-0400 Body weight 98.5 kg DO Maye Bunting Work Phone: [facility] 08-30-2022 10:30-0400 Body height 187.96 cm DO Maye Bunting Work Phone: [facility] 08-27-2022 15:38-0400 Diastolic blood pressure 110 mm[Hg] DO Maye Bunting Work Phone: [facility] 08-27-2022 15:38-0400 Heart rate 90 /min DO Maye Bunting Work Phone: [facility] 08-27-2022 15:38-0400 Respiratory rate 18 /min DO Maye Bunting Work Phone: [facility] 08-27-2022 15:38-0400 SaO2% (BldA) [Mass fraction] 98 % DO Maye Bunting Work Phone: [facility] 08-27-2022 15:38-0400 Systolic blood pressure 220 mm[Hg] DO Maye Bunting Work Phone: [facility] 08-27-2022 12:34-0400 Body height 187.96 cm DO Maye Bunting Work Phone: [facility] 08-27-2022 12:34-0400 Body temperature 98.5 [degF] DO Maye Bunting Work Phone: 9(040)092-120560 [place] [address] 08-27-2022 12:34-0400 Body weight 106.59 kg DO Maye Bunting Work Phone: 0(227)978-570026 [address] 08-09-2022 14:50-0400 Body temperature 97.9 [degF] DO Maye Bunting Work Phone: 3(490)499-150960 [place] [address] 08-09-2022 14:50-0400 Diastolic blood pressure 84 mm[Hg] DO Maye Bunting Work Phone: [facility] 08-09-2022 14:50-0400 Heart rate 94 /min DO Maye Bunting Work Phone: 7(633)500-826860 [place] [address] 08-09-2022 14:50-0400 Respiratory rate 18 /min DO Maye Bunting Work Phone: [facility] 08-09-2022 14:50-0400 SaO2% (BldA) [Mass fraction] 94 % DO Maye Bunting Work Phone: [facility] 08-09-2022 14:50-0400 Systolic blood pressure 138 mm[Hg] DO Maye Bunting Work Phone: 6(602)618-931660 [place] [address] 07-19-2022 13:16-0400 Body temperature 97.7 [degF] DO Maye Bunting Work Phone: [facility] 07-19-2022 13:16-0400 Diastolic blood pressure 70 mm[Hg] DO Maye Bunting Work Phone: 7(367)256-050860 [place] [address] 07-19-2022 13:16-0400 Heart rate 94 /min DO Maye Bunting Work Phone: [facility] 07-19-2022 13:16-0400 Respiratory rate 20 /min DO Maye Bunting Work Phone: [facility] 07-19-2022 13:16-0400 SaO2% (BldA) [Mass fraction] 97 % DO Maye Bunting Work Phone: [facility] 07-19-2022 13:16-0400 Systolic blood pressure 138 mm[Hg] DO Maye Bunting Work Phone: [facility] 07-17-2022 09:06-0400 Diastolic blood pressure 85 mm[Hg] DO Maye Bunting Work Phone: [facility] 07-17-2022 09:06-0400 Heart rate 106 /min DO Maye Bunting Work Phone: [facility] 07-17-2022 09:06-0400 Respiratory rate 18 /min DO Maye Bunting Work Phone: [facility] 07-17-2022 09:06-0400 SaO2% (BldA) [Mass fraction] 100 % DO Maye Bunting Work Phone: [facility] 07-17-2022 09:06-0400 Systolic blood pressure 187 mm[Hg] DO Maye Bunting Work Phone: [facility] 07-17-2022 07:08-0400 Body temperature 97.2 [degF] DO Maye Bunting Work Phone: [facility] 07-16-2022 21:11-0400 Body height 187.96 cm DO Maye Bunting Work Phone: [facility] 07-16-2022 21:11-0400 Body weight 107.5 kg DO Maye Bunting Work Phone: [facility] 06-07-2022 08:39-0500 Blood Pressure Location Kiko Lue [facility] 06-07-2022 08:39-0500 Diastolic blood pressure 88 mm[Hg] Kiko Lue [facility] 06-07-2022 08:39-0500 Heart rate 84 /min Kiko Lue [facility] 06-07-2022 08:39-0500 Systolic blood pressure 144 mm[Hg] Kiko Lue [facility] 04-26-2022 08:13-0500 Blood Pressure Location Kiko Lue [facility] 04-26-2022 08:13-0500 Diastolic blood pressure 84 mm[Hg] Kiko Lue [facility] 04-26-2022 08:13-0500 Heart rate 71 /min Kiko Lue [facility] 04-26-2022 08:13-0500 Systolic blood pressure 135 mm[Hg] Kiko Lue [facility] 04-22-2022 09:59-0500 Body temperature 97.8 [degF] DO Maye Bunting Work Phone: [facility] 04-22-2022 09:59-0500 Diastolic blood pressure 80 mm[Hg] DO Maye Bunting Work Phone: [facility] 04-22-2022 09:59-0500 Heart rate 88 /min DO Maye Bunting Work Phone: [facility] 04-22-2022 09:59-0500 Respiratory rate 16 /min DO Maye Bunting Work Phone: [facility] 04-22-2022 09:59-0500 SaO2% (BldA) [Mass fraction] 98 % DO Maye Bunting Work Phone: [facility] 04-22-2022 09:59-0500 Systolic blood pressure 145 mm[Hg] DO Maye Bunting Work Phone: [facility] 04-09-2022 15:23-0500 Diastolic blood pressure 85 mm[Hg] DO Maye Bunting Work Phone: [facility] 04-09-2022 15:23-0500 Heart rate 98 /min DO Maye Bunting Work Phone: [facility] 04-09-2022 15:23-0500 Respiratory rate 16 /min DO Maye Bunting Work Phone: [facility] 04-09-2022 15:23-0500 SaO2% (BldA) [Mass fraction] 98 % DO Maye Bunting Work Phone: [facility] 04-09-2022 15:23-0500 Systolic blood pressure 136 mm[Hg] DO Maye Bunting Work Phone: [facility] 04-09-2022 14:53-0500 Inhaled oxygen flow rate 6 L/min DO Maye Bunting Work Phone: [facility] 04-09-2022 13:33-0500 Body height 187.96 cm DO Maye Bunting Work Phone: [facility] 04-09-2022 13:33-0500 Body mass index (BMI) [Ratio] 30.8 kg/m2 DO Maye Bunting Work Phone: [facility] 04-09-2022 13:33-0500 Body weight 108.86 kg DO Maye Bunting Work Phone: [facility] 04-09-2022 12:15-0500 Body temperature 97.7 [degF] DO Maye Bunting Work Phone: [facility] 03-05-2022 13:35-0500 Diastolic blood pressure 84 mm[Hg] DO Maye Bunting Work Phone: [facility] 03-05-2022 13:35-0500 Heart rate 94 /min DO Maye Bunting Work Phone: [facility] 03-05-2022 13:35-0500 Systolic blood pressure 187 mm[Hg] DO Maye Bunting Work Phone: [facility] 03-05-2022 13:23-0500 65 1 Maye R Bunting Work Phone: [facility] 250 DO Work Phone: Comment on above: [place] [id number] 03-05-2022 09:14-0500 61 1 Maye R Bunting Work Phone: [facility] 250 DO Work Phone: Comment on above: [place] [id number] 02-21-2022 11:26-0500 Diastolic blood pressure 78 mm[Hg] Maye R Bunting Work Phone: [facility] 250 DO Work Phone: 02-21-2022 11:26-0500 Systolic blood pressure 136 mm[Hg] Maye R Bunting Work Phone: [facility] 250 DO Work Phone: 02-21-2022 10:53-0500 Body height 187.96 cm Maye R Bunting Work Phone: [facility] 250 DO Work Phone: 02-21-2022 10:53-0500 Body mass index (BMI) [Ratio] Patient Reason Not Done Maye R Bunting Work Phone: [facility] [place] 250 DO Work Phone: 02-21-2022 10:53-0500 Diastolic blood pressure 78 mm[Hg] Maye R Bunting Work Phone: [facility] [place] 250 DO Work Phone: 02-21-2022 10:53-0500 Diastolic blood pressure 90 mm[Hg] Maye R Bunting Work Phone: [facility] DO Work Phone: 02-21-2022 10:53-0500 Heart rate 90 /min Maye R Bunting Work Phone: [facility] 250 DO Work Phone: 02-21-2022 10:53-0500 Systolic blood pressure 144 mm[Hg] Maye R Bunting Work Phone: [facility] [employer] 250 DO Work Phone: 01-31-2022 14:20-0400 Body height 182.88 cm Johan Taylor Other [employer] Other 01-31-2022 14:20-0400 Body temperature 98 [degF] Johan Taylor Other [facility] Other 01-31-2022 14:20-0400 Diastolic blood pressure 78 mm[Hg] Johan Taylor Other [facility] Other 01-31-2022 14:20-0400 Respiratory rate 18 /min Johan Taylor Other [facility] Other 01-31-2022 14:20-0400 SaO2% (BldA) [Mass fraction] 98 % Johan Taylor Other [facility] Other 01-31-2022 14:20-0400 Systolic blood pressure 169 mm[Hg] Johan Taylor Other [facility] [employer] Other 01-25-2022 11:02-0400 Body height 187.96 cm DO Maye Bunting Work Phone: [facility] 01-25-2022 11:02-0400 Body weight 108.9 kg DO Maye Bunting Work Phone: [facility] 01-25-2022 11:02-0400 Diastolic blood pressure 81 mm[Hg] DO Maye Bunting Work Phone: [facility] 01-25-2022 11:02-0400 Heart rate 83 /min DO Maye Bunting Work Phone: [facility] 01-25-2022 11:02-0400 Respiratory rate 18 /min DO Maye Bunting Work Phone: [facility] 01-25-2022 11:02-0400 SaO2% (BldA) [Mass fraction] 98 % DO Maye Bunting Work Phone: [facility] 01-25-2022 11:02-0400 Systolic blood pressure 145 mm[Hg] DO Maye Bunting Work Phone: [facility] 01-11-2022 16:28-0400 Body height 187.96 cm DO Maye Bunting Work Phone: [facility] 01-11-2022 16:28-0400 Body temperature 97.6 [degF] DO Maye Bunting Work Phone: [facility] 01-11-2022 16:28-0400 Body weight 107.9 kg DO Maye Bunting Work Phone: [facility] 01-11-2022 16:28-0400 Diastolic blood pressure 97 mm[Hg] DO Maye Bunting Work Phone: [facility] 01-11-2022 16:28-0400 Heart rate 90 /min DO Maye Bunting Work Phone: [facility] 01-11-2022 16:28-0400 Respiratory rate 16 /min DO Maye Bunting Work Phone: [facility] 01-11-2022 16:28-0400 SaO2% (BldA) [Mass fraction] 98 % DO Myae Bunting Work Phone: [facility] 01-11-2022 16:28-0400 Systolic blood pressure 162 mm[Hg] DO Maye Bunting Work Phone: [facility] 12-19-2021 11:30-0400 Body height 182.88 cm Master Mauricio Other [employer] Other 12-19-2021 11:30-0400 Body mass index (BMI) [Ratio] 33.9 kg/m2 Master Mauricio Other [facility] [employer] Other 12-19-2021 11:30-0400 Body temperature 97 [degF] Master Mauricio Other [facility] [employer] Other 12-19-2021 11:30-0400 Body weight 113.4 kg Master Mauricio Other [employer] Other 12-19-2021 11:30-0400 Diastolic blood pressure 76 mm[Hg] Master Mauricio Other [employer] [facility] [employer] Other 12-19-2021 11:30-0400 SaO2% (BldA) [Mass fraction] 97 % Master Mauricio Other [facility] [employer] Other 12-19-2021 11:30-0400 Systolic blood pressure 150 mm[Hg] Master Mauricio Other [facility] Other 12-06-2021 14:30-0400 Body height 182.88 cm Riya Pitt Other [facility] Other 12-06-2021 14:30-0400 Body temperature 97.9 [degF] Riya Pitt Other [facility] Other 12-06-2021 14:30-0400 Diastolic blood pressure 75 mm[Hg] Riya Pitt Other [facility] [employer] Other 12-06-2021 14:30-0400 Systolic blood pressure 132 mm[Hg] Riya Pitt Other [facility] [employer] Other 12-05-2021 07:30-0400 Diastolic blood pressure 82 mm[Hg] Services [employer] Work Phone: [facility] 12-05-2021 07:30-0400 Heart rate 96 /min Services [facility] [employer] Work Phone: [facility] 12-05-2021 07:30-0400 SaO2% (BldA) [Mass fraction] 98 % Services [employer] Work Phone: [facility] 12-05-2021 07:30-0400 Systolic blood pressure 176 mm[Hg] Services [employer] Work Phone: [facility] 12-05-2021 06:01-0400 Respiratory rate 18 /min Services [facility] [employer] Work Phone: [facility] 12-05-2021 03:20-0400 Body temperature 97.6 [degF] Services [facility] [employer] Work Phone: [facility] 12-04-2021 19:42-0400 Body height 187.96 cm Services [facility] [employer] Work Phone: [facility] 12-04-2021 19:42-0400 Body weight 111.13 kg Services [facility] [employer] Work Phone: [facility] 11-21-2021 20:00-0400 Body temperature 97.6 [degF] Services [facility] Work Phone: [facility] 11-21-2021 20:00-0400 Diastolic blood pressure 81 mm[Hg] Services [facility] Work Phone: [facility] 11-21-2021 20:00-0400 Heart rate 104 /min Services [facility] Work Phone: [facility] 11-21-2021 20:00-0400 Respiratory rate 18 /min Services [facility] Work Phone: [facility] 11-21-2021 20:00-0400 SaO2% (BldA) [Mass fraction] 96 % Services [facility] Work Phone: [facility] 11-21-2021 20:00-0400 Systolic blood pressure 146 mm[Hg] Services [facility] Work Phone: [facility] 11-21-2021 06:00-0400 Body weight 107 kg Services [facility] Work Phone: [facility] 11-20-2021 14:54-0400 Body height 187.96 cm Services [facility] Work Phone: [facility] 09-25-2021 14:00-0400 Body height 182.88 cm Fawad Rocha Other [employer] Other 09-25-2021 14:00-0400 Body mass index (BMI) [Ratio] 33.9 kg/m2 Fawad Rocha Other [employer] Other 09-25-2021 14:00-0400 Body temperature 98.4 [degF] Fawad Rocha Other [facility] [employer] Other 09-25-2021 14:00-0400 Body weight 113.4 kg Fawad Rocha Other [facility] [employer] Other 09-25-2021 14:00-0400 Diastolic blood pressure 74 mm[Hg] Fawad Salinasrer Other [employer] Other 09-25-2021 14:00-0400 SaO2% (BldA) [Mass fraction] 95 % Fawad Salinasrer Other [employer] Other 09-25-2021 14:00-0400 Systolic blood pressure 152 mm[Hg] Fawad Salinasrer Other [employer] Other 09-12-2021 16:20-0400 Diastolic blood pressure 90 mm[Hg] Services [employer] Work Phone: [facility] 09-12-2021 16:20-0400 Heart rate 95 /min Services [facility] [employer] Work Phone: [facility] 09-12-2021 16:20-0400 Respiratory rate 18 /min Services [employer] Work Phone: [facility] 09-12-2021 16:20-0400 SaO2% (BldA) [Mass fraction] 98 % Services [employer] Work Phone: [facility] 09-12-2021 16:20-0400 Systolic blood pressure 145 mm[Hg] Services [facility] [employer] Work Phone: [facility] 09-12-2021 14:00-0400 Body temperature 98 [degF] Services [facility] [employer] Work Phone: [facility] 03-14-2021 12:00-0500 Body height 182.88 cm Johan Taylor Other [facility] [employer] Other 03-14-2021 12:00-0500 Body temperature 98.4 [degF] Johan Taylor Other [employer] Other 03-14-2021 12:00-0500 Diastolic blood pressure 89 mm[Hg] Johan Taylor Other [employer] Other 03-14-2021 12:00-0500 Respiratory rate 18 /min Johan Taylor Other [employer] Other 03-14-2021 12:00-0500 SaO2% (BldA) [Mass fraction] 98 % Johan Taylor Other [employer] Other 03-14-2021 12:00-0500 Systolic blood pressure 154 mm[Hg] Johan Taylor Other [employer] Other 01-24-2021 10:33-0400 Body height 187.96 cm [facility] Work Phone: [facility] 01-03-2021 12:20-0400 Body height 182.88 cm Johan Taylor Other [employer] Other 01-03-2021 12:20-0400 Body temperature 97.5 [degF] Johan Taylor Other [employer] Other 01-03-2021 12:20-0400 Diastolic blood pressure 90 mm[Hg] Johan Claudia Other [employer] Other 01-03-2021 12:20-0400 Respiratory rate 18 /min Johan Taylor Other [employer] Other 01-03-2021 12:20-0400 SaO2% (BldA) [Mass fraction] 98 % Johan Taylor Other [employer] Other 01-03-2021 12:20-0400 Systolic blood pressure 167 mm[Hg] Johan Taylor Other [employer] Other 06-26-2020 15:42-0400 Body weight 109.72 kg Services [facility] Work Phone: [facility] Encounters Encounter Date Encounter Type Care Provider Facility Start: 12-30-2023 End: 12-30-2023 ambulatory PHYSICIAN NO [facility] Work Phone: Start: 12-30-2023 End: 12-30-2023 Patient encounter procedure PHYSICIAN NO [facility] [place] Work Phone: Start: 12-26-2023 End: 12-26-2023 ambulatory PHYSICIAN NO [facility] Work Phone: Start: 12-26-2023 End: 12-26-2023 Patient encounter procedure PHYSICIAN NO [facility]-Dialysis Work Phone: Start: 12-02-2023 End: 12-02-2023 ambulatory PHYSICIAN NO [facility] Work Phone: Start: 12-02-2023 End: 12-02-2023 Patient encounter procedure PHYSICIAN NO [facility] [facility] Vascular Surgery Work Phone: Start: 12-01-2023 Non-patient / Non-visit PHYSICIAN NO [facility] D[facility] Work Phone: Start: 11-11-2023 End: 11-11-2023 ambulatory PHYSICIAN NO [facility] Work Phone: Start: 11-11-2023 End: 11-11-2023 Patient encounter procedure PHYSICIAN NO [facility] [facility] Vascular Surgery Work Phone: Start: 11-07-2023 End: 11-07-2023 ambulatory PHYSICIAN NO [facility] Work Phone: Start: 11-07-2023 End: 11-07-2023 Departed Referred PHYSICIAN NO [facility]-Dialysis Work Phone: Start: 10-29-2023 Non-patient / Non-visit PHYSICIAN NO [facility] D[facility] Work Phone: Start: 10-28-2023 Non-patient / Non-visit PHYSICIAN NO [facility] [facility] Vascular Surgery Work Phone: Start: 10-28-2023 End: 10-28-2023 Admission to same day surgery center PHYSICIAN NO [facility]-Interventional Radiology Work Phone: Start: 10-28-2023 End: 10-28-2023 ambulatory PHYSICIAN NO [facility] Work Phone: Start: 10-21-2023 End: 10-21-2023 ambulatory PHYSICIAN NO [facility] Work Phone: Start: 10-21-2023 End: 10-21-2023 Patient encounter procedure PHYSICIAN NO [facility] [facility] Vascular Surgery Work Phone: Start: 09-29-2023 Non-patient / Non-visit PHYSICIAN NO [facility] Dialysis [facility] Work Phone: Start: 09-09-2023 End: 09-09-2023 ambulatory Services [facility] Work Phone: [facility] Work Phone: Start: 09-09-2023 End: 09-09-2023 Patient encounter procedure Services [facility] Work Phone: [facility] Work Phone: Start: 09-05-2023 Non-patient / Non-visit [facility] Work Phone: [facility] Work Phone: Start: 09-01-2023 Non-patient / Non-visit PHYSICIAN NO [facility] Dialysis [facility] Work Phone: Start: 08-08-2023 End: 08-08-2023 ambulatory [facility] Work Phone: [facility] Work Phone: Start: 08-08-2023 End: 08-08-2023 Departed Referred Services [facility] Work Phone: [facility]-Dialysis Work Phone: Start: 08-08-2023 End: 08-08-2023 Services [facility] Work Phone: [facility]-Dialysis Work Phone: Start: 08-05-2023 End: 08-05-2023 Admission to same day surgery center Services [facility] Work Phone: [facility]-Interventional Radiology Work Phone: Start: 08-05-2023 End: 08-05-2023 ambulatory Services [facility] Work Phone: [facility] Work Phone: Start: 08-05-2023 End: 08-05-2023 Services [facility] Work Phone: [facility]-Interventional Radiology Work Phone: Start: 08-05-2023 End: 08-05-2023 ambulatory Services [facility] Work Phone: [facility] Work Phone: Start: 08-05-2023 End: 08-05-2023 Patient encounter procedure Services [facility] Work Phone: [facility] [facility] Vascular Surgery Work Phone: Start: 08-05-2023 End: 08-05-2023 Services [facility] Work Phone: [facility] Work Phone: Start: 07-30-2023 Non-patient / Non-visit Servic es [facility] Work Phone: Start: 07-22-2023 End: 07-22-2023 ambulatory Services [facility] Work Phone: [facility] Work Phone: Start: 07-22-2023 End: 07-22-2023 Patient encounter procedure Services [facility] Work Phone: [facility] [facility] Vascular Surgery Work Phone: Start: 07-22-2023 Registered Recurring Services [facility] Work Phone: [facility] Acute Work Phone: Start: 07-22-2023 End: 07-22-2023 Services [facility] Work Phone: [facility] Ambulatory Work Phone: Start: 07-15-2023 End: 07-15-2023 ambulatory Services [facility] Work Phone: [facility] Work Phone: Start: 07-15-2023 End: 07-15-2023 Departed Referred Services [facility] Work Phone: [facility] [place] Work Phone: Start: 07-15-2023 End: 07-15-2023 Services [facility] Work Phone: [facility]-Lab [place] Work Phone: Start: 07-10-2023 End: 07-10-2023 ambulatory [facility] Mervat Santiago Work Phone: [facility] Work Phone: Start: 07-10-2023 End: 07-10-2023 Patient encounter procedure Services [facility] Work Phone: [facility] Nephrology Work Phone: Start: 07-10-2023 End: 07-10-2023 [facility] Mervat Spasic Work Phone: [facility] [facility] Nephrology Work Phone: Start: 07-07-2023 [facility] Mervat Spa sic Work Phone: [facility] Work Phone: Start: 07-03-2023 [facility]at Spa sic [facility] Work [facility]: Start: 07-03-2023 Non-patient / Non-visit [facility] Work Phone: [facility] [facility] Vascular Surgery Work Phone: Start: 07-03-2023 End: 07-03-2023 Admission to same day surgery [facility] Work Phone: [facility]-Interventional Radiology Work Phone: Start: 07-03-2023 End: 07-03-2023 ambulatory [facility] Mervat E Spasic Work Phone: [facility] Work Phone: Start: 07-03-2023 End: 07-03-2023 [facility] Mervat Spasic Work Phone: [facility]-Interventional Radiology Work Phone: Start: 06-24-2023 End: 06-24-2023 ambulatory [facility] Mervat E Spasic Work Phone: [facility] Work Phone: Start: 06-24-2023 End: 06-24-2023 MD Fawad Rocha Work Phone: [facility]-Ultrasound [facility] Vascular Start: 06-24-2023 MD Fawad newman Work Phone: [facility] Acute Work Phone: Start: 06-24-2023 End: 06-24-2023 ambulatory [facility] Mervat E Spasic Work Phone: [facility] Work Phone: Start: 06-24-2023 End: 06-24-2023 Patient encounter procedure Services [facility] Work Phone: [facility] [facility] [facility] Vascular Surgery Work Phone: Start: 06-24-2023 End: 06-24-2023 [facility] Mervat Spasic Work Phone: [facility] Work Phone: Start: 06-19-2023 End: 06-19-2023 ambulatory [facility] Mervat E Spasic Work Phone: [facility] Work Phone: Start: 06-19-2023 End: 06-19-2023 Departed Referred Services [facility] Work Phone: [facility] [place] Work Phone: Start: 06-19-2023 End: 06-19-2023 [facility] Mervat Spasic Work Phone: [facility] [place] Work Phone: Start: 06-09-2023 [facility]ervat Spa sic [facility] Work Phone: Start: 06-05-2023 End: 06-05-2023 [facility] Mervat Spasic Work Phone: [facility] [place] Work Phone: Start: 05-22-2023 External Result Encounter Jose M Landry DO Work Phone: [facility] External Department Unsolicited Start: 05-22-2023 External Result Encounter Jose M aLndry DO Work Phone: [facility] External Department Unsolicited Start: 05-22-2023 End: 05-22-2023 ambulatory NON STAFF [facility] Work Phone: Start: 05-22-2023 End: 05-22-2023 MD Johan Taylor Work Phone: [facility] [place] Work Phone: Start: 05-13-2023 MD Johan Espino i Work Phone: [facility] Work Phone: Start: 05-08-2023 External Result Encounter Jose M Landry DO Work Phone: [facility] External Department Unsolicited Start: 05-08-2023 External Result Encounter Jose M Landry DO Work Phone: [facility] External Department Unsolicited Start: 05-08-2023 Postop follow up vis it related to original px Master Mauricio [employer] [facility] Vascular Surgery Start: 05-08-2023 End: 05-08-2023 ambulatory NON STAFF [employer] Other Start: 05-08-2023 End: 05-08-2023 MD Johan Taylor Work Phone: [facility] [place] Work Phone: Start: 05-08-2023 End: 05-08-2023 MD Johan Taylor Work Phone: [facility]- Start: 04-28-2023 MD Johan Espino i Work Phone: [facility]-Cancer Center Acute Work Phone: Start: 04-22-2023 End: 04-22-2023 ambulatory NON STAFF [facility] Work Phone: Start: 04-22-2023 End: 04-22-2023 TYSON Maddie Sanchezlux Work Phone: [facility] [place] Work Phone: Start: 04-16-2023 End: 04-16-2023 ambulatory NON STAFF [facility] Work Phone: Start: 04-16-2023 End: 04-17-2023 TYSON Dixon Work Phone: [facility]-Surgery Center [place] Start: 04-08-2023 CLAIMS ACCOUNT MANAGER Maddie Dillrey soto Work Phone: [facility]-Cancer Center Work Phone: Start: 04-07-2023 End: 04-07-2023 ambulatory [facility] Work Phone: [facility] Work Phone: Start: 04-07-2023 End: 04-07-2023 Patient encounter procedure [facility] Work Phone: [facility] [place] Work Phone: Start: 04-07-2023 End: 04-07-2023 CLAIMS ACCOUNT MANAGERChristina Dixon Work Phone: [facility] [place] Work Phone: Start: 04-07-2023 Registered Recurring Services [facility] Work Phone: [facility]-Cancer Center Work Phone: Start: 04-02-2023 End: 04-02-2023 ambulatory Services [facility] Work Phone: [facility] Work Phone: Start: 04-02-2023 End: 04-02-2023 Patient encounter procedure Services [facility] Work Phone: [facility] Qsd-Yij-Skmsfpbw Testing Work Phone: Start: 04-02-2023 End: 04-02-2023 CLAIMS ACCOUNT MANAGERChristina Dixon Work Phone: [facility] Eff-Vpg-Mhmnjsvi Testing Work Phone: Start: 03-25-2023 Registered Recurring Services [facility] Work Phone: [facility] Work Phone: Start: 03-19-2023 End: 03-19-2023 ambulatory Services [facility] Work Phone: [facility] Work Phone: Start: 03-19-2023 End: 03-19-2023 Departed Referred Services [facility] Work Phone: [facility] [place] Work Phone: Start: 03-19-2023 End: 03-19-2023 CLAIMS ACCOUNT MANAGER Maddie Dixon Work Phone: [facility]-Lab [place] Work Phone: Start: 03-13-2023 End: 03-13-2023 ambulatory Services [facility] Work Phone: [facility] Work Phone: Start: 03-13-2023 End: 03-13-2023 Departed Referred Services [facility] Work Phone: [facility] Services Start: 03-13-2023 End: 03-13-2023 CLAIMS ACCOUNT MANAGERChristina Dixon Work Phone: [facility] Services Start: 03-12-2023 End: 03-12-2023 ambulatory Fawad Rocha Other [employer] Other Start: 03-12-2023 Telephone encounter Fawad MCCALL [employer] Start: 03-11-2023 End: 03-11-2023 ambulatory Fawad Rocha Other [employer] Other Start: 03-11-2023 Office outpatient vi sit 25 minutes Fawad Rocha [facility] Start: 03-11-2023 End: 03-11-2023 MD Johan Taylor Work Phone: [facility] Work Phone: Start: 03-04-2023 Registered Recurring Services [facility] Work Phone: [facility] Work Phone: Start: 03-04-2023 End: 03-04-2023 ambulatory Services [facility] Work Phone: [facility] Work Phone: Start: 03-04-2023 End: 03-04-2023 Patient encounter procedure Services [facility] Work Phone: [facility]-Ultrasound [place] Work Phone: Start: 03-04-2023 End: 03-04-2023 CLAIMS ACCOUNT MANAGER Maddie Dixon Work Phone: [facility]-Ultrasound [place] Work Phone: Start: 02-24-2023 End: 02-24-2023 ambulatory Johan Taylor Other [facility] [employer] Other Start: 02-24-2023 Telephone encounter Johan Taylor [facility] Start: 02-13-2023 End: 02-13-2023 ambulatory Johan Taylor Other [facility] [employer] Other Start: 02-13-2023 Office outpatient vi sit 25 minutes Johan Taylor [facility] Start: 02-13-2023 Telephone encounter Johan Taylor [facility] [employer] Start: 02-13-2023 End: 02-13-2023 MD Johan Taylor Work Phone: [facility] Work Phone: Start: 02-07-2023 End: 02-07-2023 ambulatory [facility] Mervat Santiago Work Phone: [facility] Work Phone: Start: 02-07-2023 End: 02-07-2023 Departed Referred Services [facility] Work Phone: [facility] [place] Work Phone: Start: 02-07-2023 End: 02-07-2023 [facility] Mervat Spasic Work Phone: [facility]-Lab [place] Work Phone: Start: 01-29-2023 End: 01-29-2023 ambulatory [facility] Mervat E Spasic Work Phone: [facility] Work Phone: Start: 01-29-2023 End: 01-29-2023 Departed Referred Services [facility] Work Phone: [facility] [place] Work Phone: Start: 01-29-2023 End: 01-29-2023 [facility] Mervat Spasic Work Phone: [facility] [place] Work Phone: Start: 01-17-2023 End: 01-17-2023 ambulatory [facility] Mervat E Spasic Work Phone: [facility] Work Phone: Start: 01-17-2023 End: 01-17-2023 [facility] Mervat Spasic Work Phone: [facility] Ctr-Cancer Center Work Phone: Start: 01-15-2023 End: 01-15-2023 ambulatory [facility] Mervat E Spasic Work Phone: [facility] Work Phone: Start: 01-15-2023 End: 01-15-2023 Departed Referred Services [facility] Work Phone: [facility] [place] Work Phone: Start: 01-15-2023 End: 01-15-2023 [facility] Mervat Spasic Work Phone: [facility] C[facility]-Lab [place] Work Phone: Start: 01-03-2023 End: 01-03-2023 ambulatory [facility] Mervat E Spasic Work Phone: [facility] Work Phone: Start: 01-03-2023 End: 01-03-2023 Patient encounter procedure Services [facility] Work Phone: [facility] Ctr-Ultrasound [place] Work Phone: Start: 01-03-2023 End: 01-03-2023 [facility] Mervat Spasic Work Phone: [facility]-Ultrasound [place] Work Phone: Start: 12-30-2022 [facility] Mervat Spa sic Work Phone: [facility] Work Phone: Start: 12-24-2022 End: 12-24-2022 ambulatory [facility] Mervat E Spasic Work Phone: [facility] Work Phone: Start: 12-24-2022 End: 12-24-2022 Departed Referred Services [facility] Work Phone: [facility] Start: 12-24-2022 End: 12-24-2022 [facility] Mervat Spasic Work Phone: [facility] Start: 12-19-2022 End: 12-19-2022 Patient encounter procedure Kiko Corbett [facility] Start: 12-13-2022 End: 12-13-2022 ambulatory [facility] Mervat E Spasic Work Phone: [facility] Work Phone: Start: 12-13-2022 End: 12-13-2022 Departed Referred Services [facility] Work Phone: [facility] [place] Work Phone: Start: 12-13-2022 End: 12-13-2022 [facility] Mervat Spasic Work Phone: [facility]-Lab [place] Work Phone: Start: 12-12-2022 End: 12-12-2022 ambulatory Essam Claudia Other [employer] Other Start: 12-12-2022 Office outpatient vi sit 25 minutes Johan Taylor [facility] Start: 11-27-2022 End: 11-27-2022 ambulatory [facility] Mervat Hughes Spasic Work Phone: [facility] Work Phone: Start: 11-27-2022 End: 11-27-2022 [facility] Mervat Spasic Work Phone: [facility] [place] Work Phone: Start: 11-15-2022 End: 11-15-2022 ambulatory DO Maye Bunting Work Phone: [facility] Work Phone: Start: 11-15-2022 End: 11-15-2022 DO Maye Bunting Work Phone: [facility] [place] Work Phone: Start: 11-07-2022 End: 11-07-2022 ambulatory Riya Pitt Other [employer] Other Start: 11-07-2022 Office outpatient vi sit 25 minutes Riya Pitt [facility] Start: 11-04-2022 DO Maye Bunt ing Work Phone: [facility]-Cancer Center Work Phone: Start: 11-04-2022 End: 11-04-2022 ambulatory DO Maye Bunting Work Phone: [facility] Work Phone: Start: 11-04-2022 End: 11-04-2022 DO Maye Bunting Work Phone: [facility] [place] Work Phone: Start: 10-22-2022 End: 10-24-2022 Evaluation and management of inpatient DO Maye Bunting Work Phone: [facility] Work Phone: Start: 10-22-2022 End: 10-24-2022 DO Maye Bunting Work Phone: [facility] [place] [facility] Work Phone: Start: 10-21-2022 End: 10-21-2022 Emergency department patient visit DO Maye Bunting Work Phone: [facility] Work Phone: Start: 10-21-2022 End: 10-21-2022 DO Maye Bunting Work Phone: [facility]-Emergency Room Work Phone: Start: 10-17-2022 End: 10-17-2022 ambulatory Riya Pitt Other [employer] Other Start: 10-17-2022 Telephone encounter Riya AYALA G Infectious Disease Start: 10-16-2022 End: 10-16-2022 ambulatory DO Maye Bunting Work Phone: [facility] Work Phone: Start: 10-16-2022 End: 10-16-2022 DO Maye Bunting Work Phone: [facility] [place] Work Phone: Start: 10-15-2022 End: 10-15-2022 Emergency department patient visit DO Maye Bunting Work Phone: [facility] Work Phone: Start: 10-15-2022 End: 10-15-2022 DO Maye Bunting Work Phone: [facility]-Emergency Room Work Phone: Start: 10-13-2022 End: 10-13-2022 Emergency department patient visit DO Maye Bunting Work Phone: [facility] Work Phone: Start: 10-13-2022 End: 10-13-2022 DO Maye Bunting Work Phone: [facility]-Emergency Room Work Phone: Start: 10-11-2022 End: 10-11-2022 ambulatory DO Maye Bunting Work Phone: [facility] Work Phone: Start: 10-11-2022 End: 10-11-2022 DO Myae Bunting Work Phone: [facility] [place] Work Phone: Start: 10-09-2022 End: 10-09-2022 ambulatory DO Maye Bunting Work Phone: [facility] Work Phone: Start: 10-09-2022 End: 10-09-2022 DO Maye Bunting Work Phone: [facility] [place] Work Phone: Start: 10-07-2022 DO Maye Bunt ing Work Phone: [facility] Ctr-Cancer Center Work Phone: Start: 10-03-2022 End: 10-03-2022 ambulatory DO Maye Bunting Work Phone: [facility] Work Phone: Start: 10-03-2022 End: 10-03-2022 DO Maye Bunting Work Phone: [facility] Start: 10-02-2022 End: 10-02-2022 ambulatory DO Maye Bunting Work Phone: [facility] Work Phone: Start: 10-02-2022 End: 10-02-2022 DO Maye Bunting Work Phone: [facility] [place] Work Phone: Start: 09-23-2022 Telephone encounter Bri Velazquez INTERVENTIONAL RADIOLOGY Comment on above: tube removal Start: 09-12-2022 End: 09-12-2022 Patient encounter procedure Kiko Corbett [facility] Start: 09-10-2022 Evaluation and management of inpatient DO Maye Bunting Work Phone: [facility] Work Phone: Start: 09-10-2022 End: 09-12-2022 DO Maye Bunting Work Phone: [facility] Work Phone: Start: 08-29-[address] Maye Murray Facility:[id number] Start: 08-29-2022 End: 08-31-2022 Evaluation and management of inpatient Julian Jones Facility:[place] [facility] Start: 08-29-2022 End: 08-31-2022 DO Maye Bunting Work Phone: [facility] Work Phone: Start: 08-27-2022 End: 08-27-2022 Emergency department patient visit Srinivas Aguilar Facility:[facility] Start: 08-27-2022 End: 08-27-2022 DO Maye Bunting Work Phone: [facility]-Emergency Room Work Phone: Start: 08-20-2022 End: 08-20-2022 ambulatory Mervat E Spasic Facility:[facility] Start: 08-20-2022 End: 08-20-2022 DO Maye Bunting Work Phone: [facility] Start: 08-16-2022 End: 08-17-2022 ambulatory LIAM GAYLE Facility: Start: 08-09-2022 ambulatory Mervat E Spasic Facility :[facility] Start: 08-09-2022 DO Maye [facility]unt ing [facility] Work [facility]: Start: 08-01-2022 End: 08-01-2022 Patient encounter procedure Kiko Corbett 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 Start: 07-17-2022 End: 07-18-2022 ambulatory SHELDON DE LEON [facility] Start: 07-16-2022 End: 07-17-2022 Emergency department patient visit DO Maye Bunting Work Phone: [facility]-Emergency Room Work Phone: Start: 07-16-2022 End: 07-17-2022 DO Maye Bunting Work Phone: [facility]-Emergency Room Work Phone: Start: 07-05-2022 Registered Recurring DO Maye Bunting Work Phone: [facility] Work Phone: Start: 07-04-2022 End: 07-04-2022 ambulatory Maye Bunting Facility:[facility] Start: 07-04-2022 End: 07-04-2022 ambulatory DO Maye Bunting Work Phone: [facility] Work Phone: Start: 07-04-2022 End: 07-04-2022 Departed Referred DO Maye Bunting Work Phone: [facility] [place] Work Phone: Start: 07-04-2022 End: 07-04-2022 DO Maye Bunting Work Phone: [facility] [place] Work Phone: Start: 07-01-2022 End: 07-01-2022 ambulatory RIYA ARAMBULA [facility] Start: 06-21-2022 Registered Recurring DO Maye Bunting Work Phone: [facility]Cancer [facility] Work Phone: Start: 06-20-2022 End: 06-20-2022 ambulatory Maye Bunting Facility:[facility] Start: 06-20-2022 End: 06-20-2022 ambulatory DO Maye Bunting Work Phone: [facility] Work Phone: Start: 06-20-2022 End: 06-20-2022 Departed Referred DO Maye Bunting Work Phone: [facility] [place] Work Phone: Start: 06-20-2022 End: 06-20-2022 DO Maye Bunting Work Phone: [facility] [place] Work Phone: Start: 06-07-2022 End: 06-07-2022 Patient encounter procedure Kiko Corbett [facility] Start: 06-03-2022 Registered Recurring DO Maye Bunting Work Phone: [facility] Work Phone: Start: 05-21-2022 End: 05-21-2022 Follow-up encounter Angio 1 Work Phone: Radiology Comment on above: Radiology IR (Follow up nephrostomy tube placement) Start: 05-21-2022 End: 05-21-2022 Patient encounter procedure Angio Room 1 Work Phone: [facility] Start: 05-08-2022 Orders Only Bri Fair [facility] Comment on above: Hydronephrosis, unsp ecified hydronephrosis type (Primary Dx) Start: 05-06-2022 End: 05-06-2022 ambulatory [facility] Start: 05-03-2022 Telephone encounter Mile Birmingham RN [facility] Radiology Procedure Comment on above: Appointment Start: 05-03-2022 End: 05-03-2022 ambulatory [facility] Start: 04-26-2022 End: 04-26-2022 Patient encounter procedure Kiko Corbett [facility] Start: 04-23-2022 Telephone encounter Matthew Maki RN [facility] Radiology Procedure Comment on above: Radiology Pre Proced ure Instructions Start: 04-22-2022 End: 04-22-2022 ambulatory DO Maye Bunting Work Phone: [facility] Work Phone: Start: 04-22-2022 End: 04-22-2022 Registered Recurring DO Maye Bunting Work Phone: [facility]-Cancer Center Work Phone: Start: 04-09-2022 End: 04-09-2022 ambulatory Kiko Corbett Facility:[facility] Start: 04-09-2022 End: 04-09-2022 Admission to same day surgery center DO Maye Bunting Work Phone: [facility]gery [facility] [place] Start: 04-09-2022 End: 04-09-2022 ambulatory DO Maye Bunting Work Phone: [facility] Work Phone: Start: 04-05-2022 Registered Recurring DO Maye Bunting Work Phone: [facility]-Cancer Center Work Phone: Start: 03-22-2022 End: 03-22-2022 ambulatory Maye Bunting Facility:[facility] Start: 03-21-2022 End: 03-21-2022 ambulatory DO Maye Bunting Work Phone: [facility] Work Phone: Start: 03-21-2022 End: 03-21-2022 Patient encounter procedure DO Maye Bunting Work Phone: [facility]-Lab [facility] Start: 03-14-2022 Chart Update Maye Cuba ng Work Phone: [facility] 250 DO Work Phone: Start: 03-14-2022 End: 03-14-2022 ambulatory Kiko Corbett Facility:[facility] Start: 03-14-2022 End: 03-14-2022 ambulatory DO Maye Bunting Work Phone: [facility] Work Phone: Start: 03-14-2022 End: 03-14-2022 Patient encounter procedure DO Maye Bunting Work Phone: [facility]-Ultrasound [place] Start: 03-08-2022 Registered Recurring DO Maye Bunting Work Phone: [facility]-Cancer Center Start: 03-08-2022 End: 03-08-2022 ambulatory Maye Bunting Facility:[facility] Start: 03-08-2022 End: 03-08-2022 ambulatory DO Maye Bunting Work Phone: [facility] Work Phone: Start: 03-08-2022 End: 03-08-2022 Departed Referred DO Maye Bunting Work Phone: [facility] [place] Start: 03-08-2022 End: 03-08-2022 Patient encounter procedure DO Maye Bunting Work Phone: [facility]-Outpatient Registration Start: 03-07-2022 AUDIT Maye Cuba ng Work Phone: [facility] [facility] DO Work Phone: Start: 03-05-[address] Maye Murray Facility:[id number] Start: 03-05-2022 [facility]NOTE 3], Provider: Brandan Heller, Status: Pen, Time: 1:00 PM Maye Murray Work Phone: [facility] Work Phone: Start: 03-05-2022 End: 03-05-2022 ambulatory Renata Wyatt Facility:[facility] Start: 03-05-2022 End: 03-05-2022 ambulatory DO Maye Bunting Work Phone: [facility] Work Phone: Start: 03-05-2022 End: 03-05-2022 Patient encounter procedure DO Maye Bunting Work Phone: [facility]-Electrodiagnostics Start: 03-05-[address] Maye Murray Facility:[id number] Start: 02-22-2022 Registered Recurring DO Maye Bunting Work Phone: [facility]-Cancer Center Start: 02-21-2022 Office consultation new/estab patient 60 min Maye R Bunting Work Phone: [facility] 250 DO Work Phone: Start: 02-21-2022 Office outpatient ne w 45 minutes Maye R Bunting Work Phone: [facility] Work Phone: Start: 02-21-2022 Patient encounter procedure Maye R Bunting Work Phone: [facility] [facility] DO Work Phone: Start: 02-21-[address] Maye Murray Facility: Start: 01-31-2022 End: 01-31-2022 ambulatory Johan Taylor Other [facility] [employer] Other Start: 01-31-2022 Office outpatient vi sit 25 minutes Johan Taylor [facility] Start: 01-15-2022 End: 01-15-2022 ambulatory Kiko Corbett Facility:[facility] Start: 01-15-2022 End: 01-15-2022 Departed Referred DO Maye Bunting Work Phone: [facility]-Surgery Center [place] Start: 01-11-2022 End: 01-11-2022 ambulatory Kiko Corbett Facility:[facility] Start: 01-11-2022 End: 01-11-2022 ambulatory DO Ivan Springer Work Phone: [facility] Work Phone: Start: 01-11-2022 End: 01-11-2022 Patient encounter procedure DO Ivan Springer Work Phone: [facility]-Pre-Surgical Testing Start: 01-11-2022 Registered Recurring DO Ivan Springer Work Phone: [facility]-Cancer Center Start: 12-19-2021 End: 12-19-2021 ambulatory Travon Gallagheri [facility] [employer] Other Start: 12-19-2021 Office outpatient vi sit 15 minutes Master Mauricio [facility] Start: 12-14-2021 End: 12-14-2021 ambulatory Yisel Andrade Other [employer] Other Start: 12-14-2021 Telephone encounter Yisel Andrade [facility] Start: 12-07-2021 End: 12-07-2021 Patient encounter procedure Kiko Corbett [facility] Start: 12-06-2021 End: 12-06-2021 ambulatory Riya Pitt Other [employer] Other Start: 12-06-2021 Office outpatient vi sit 25 minutes Riya Pitt [facility] Start: 12-05-2021 Registered Recurring Services [facility] Work Phone: [facility]-Cancer Center Start: 12-05-2021 End: 12-05-2021 ambulatory Kiko Corbett Facility:[facility] Start: 12-05-2021 End: 12-05-2021 Patient encounter procedure Services [facility] Work Phone: [facility]-Ultrasound [place] Start: 12-04-2021 End: 12-05-2021 Emergency department patient visit Ramakrishna Sandoval Facility:[facility] Start: 12-04-2021 End: 12-05-2021 Emergency department patient visit Services [facility] Work Phone: [facility]-Emergency Room Start: 11-30-2021 End: 11-30-2021 ambulatory Yisel Andrade Other [employer] Other Start: 11-30-2021 Telephone encounter Yisel Andrade [facility] Start: 11-14-2021 End: 11-21-2021 Evaluation and management of inpatient Maye Bunting Facility:[facility] Start: 11-14-2021 End: 11-21-2021 Evaluation and management of inpatient Services [facility] Work Phone: [facility] [place] [facility] Start: 09-25-2021 End: 09-25-2021 ambulatory Fawad Rocha Other [employer] Other Start: 09-25-2021 Office outpatient vi sit 25 minutes Fawad Rocha [facility] Start: 09-13-2021 End: 09-13-2021 ambulatory Bhakti Ochoa Facility:[facility] Start: 09-13-2021 End: 09-13-2021 Patient encounter procedure Services [facility] Work Phone: [facility] [place] Start: 07-02-2021 End: 07-02-2021 ambulatory Olga Lidia Mario Other [employer] Other Start: 07-02-2021 Telephone encounter Olga Lidia Mario [facility] Start: 03-14-2021 End: 03-14-2021 ambulatory Essam Elashi Other [employer] Other Start: 03-14-2021 Office outpatient vi sit 25 minutes Essam Elashi [facility] Start: 01-03-2021 Office outpatient vi sit 25 minutes Essam Elashi [facility] Patient encounter status Maye R Bunrina Work Phone: [facility] [facility] DO Work Phone: Procedures Date Procedure Procedure Detail Performing Clinician Start: 10-28-2023 IR Fistulogram/TLA S tent (Right) PHYSICIAN NO FAMILY Start: 08-05-2023 [facility] Work Phone: Start: 07-03-2023 IR Fistulogram/TLA S tent (Right) [facility] Merv[facility] Jack Work Phone: Start: 05-22-2023 Complete blood count with white cell differential, automated Jose M Landry DO Work Phone: Start: 05-22-2023 Comprehensive metabo lic panel Jose M Landry DO Work Phone: Start: 05-08-2023 Complete blood count with white cell differential, automated Jose M Landry DO Work Phone: Start: 05-08-2023 Comprehensive metabo lic panel Jose M Landry DO Work Phone: Start: 04-16-2023 Arteriovenous fistulization CLAIMS ACCOUNT MANAGER Maddie Dixon Work Phone: Start: 03-04-2023 [facility] Work Phone: Start: 01-03-2023 Ultrasonography of liver [facility] Work Phone: Start: 10-22-2022 Blood culture for [...] Bunting Work Phone: Start: 08-27-2022 DO Maye Bunting Work Phone: Start: 08-27-2022 X-ray of right foot DO Maye Bunting Work Phone: Start: 08-20-2022 Aerobic microbial culture DO Maye Bunting Work Phone: Start: 07-17-2022 Blood culture for ba cteria, including anaerobic screen DO Maye Bunting Work Phone: Start: 07-17-2022 SARS Antigen (LFIA) DO Maye Bunting Work Phone: Start: 07-17-2022 DO Maye Bunting Work Phone: Start: 07-17-2022 CT of abdomen and pe lvis without contrast DO Maye Bunting Work Phone: Start: 04-09-2022 Cystoscopy DO Maye Bunting Work Phone: Start: 04-09-2022 Diagnostic radiograp hy of abdomen DO Maye Murray Work Phone: Start: 04-09-2022 Cystoscopy Kiko Corbett Start: 03-14-2022 Ultrasonography of b ilateral kidneys DO Maye Murray Work Phone: Start: 03-05-2022 Radionuclide myocard ial perfusion stress study DO Maye Murray Work Phone: Start: 12-05-2021 Ultrasonography of b ilateral kidneys Services [facility] Work Phone: Start: 12-05-2021 Antibody screen Maye Bunrina Comment on above: Order Comment: Numbe r of units to transfuse now? 2 Result Comment: PERF ORMED BY:[place] [address] [place] [id number] MEDICAL DIRECTORCHRISTO PINO M.D. Start: 11-21-2021 Plain chest X-ray [employer] Counts include 234 beds at the [facility] Work Phone: Start: 11-19-2021 CT of abdomen and pe lvis without contrast Services [facility] Work Phone: Start: 11-15-2021 Antibody screen Maye Bunrina Comment on above: Result Comment: PERF ORMED BY:[place] [address] [address] [place] [id number] MEDICAL DIRECTORCHRISTO PINO M.D. Start: 11-15-2021 CT of abdomen and pe lvis without contrast Services [facility] Work Phone: Start: 11-15-2021 MRI of right foot Servi Counts include 234 beds at the [facility] Work Phone: Start: 11-14-2021 Plain chest X-ray Servi Counts include 234 beds at the [facility] Work Phone: Start: 09-13-2021 MRI of right foot Servi Counts include 234 beds at the [facility] Work Phone: Start: 05-25-2020 Cystoscopy Kiko Corbett Start: 04-07-2019 Total colonoscopy Maribell Murray Work Phone: Start: 05-09-2017 Cystoscopy Kiko Corbett Amputation of toe Maye R Rey atkinson Work Phone: Comment on above: left foot; Appendectomy Maye R Klebertin g Work Phone: Blood culture for ba cteria, including anaerobic screen Services [facility] Work Phone: H/O splenectomy S/P splenectomy Maye R Everardo Work Phone: Operative procedure on foot Maye R Everardo Work Phone: Repair of musculoten dinous cuff of shoulder Maye R Everardo Work Phone: Comment on above: right; SARS Antigen (LFIA) Services [facility] Work Phone: Splenectomy Maye R Alejandro g Work Phone: Urine culture Services [facility] Work Phone: Plan of Treatment Date Care Activity Detail Author Start: 05-06-2025 DIABETES SCREEN DIABETES SCREEN [facility] Start: 10-28-2023 [facility] Start: 08-26-2023 [facility] Start: 08-15-2023 [facility] Start: 08-05-2023 [facility] Start: 08-05-2023 [facility] Start: 07-22-2023 [facility] Start: 07-19-2023 HEMOGLOBIN/HEMATOCRIT HEMOGLOBIN/HEM ATOCRIT [facility] Start: 07-19-2023 SERUM CREATININE SERUM CREATININE [facility] Start: 07-18-2023 HEMOGLOBIN/HEMATOCRIT HEMOGLOBIN/HEM ATOCRIT [facility] Start: 07-18-2023 SERUM CREATININE SERUM CREATININE [facility] Start: 07-16-2023 [facility] Start: 07-15-2023 [facility] Start: 07-07-2023 [facility] Start: 07-07-2023 [facility] Start: 07-03-2023 [facility] Start: 06-24-2023 US AV fistula [facility] Start: 06-24-2023 [facility] Start: 06-24-2023 [facility] Start: 06-09-2023 [facility] Start: 05-26-2023 [facility] Start: 05-19-2023 [facility] Start: 05-12-2023 End: 05-13-2023 [facility] Start: 05-06-2023 HEMOGLOBIN/HEMATOCRIT HEMOGLOBIN/HEM ATOCRIT [facility] Start: 05-06-2023 SERUM CREATININE SERUM CREATININE [facility] Start: 04-28-2023 [facility] Start: 04-28-2023 [facility] Start: 04-22-2023 [facility] Start: 04-16-2023 [facility] Start: 04-16-2023 [facility] Start: 04-08-2023 [facility] Start: 03-26-2023 [facility] Start: 03-25-2023 [facility] Start: 03-25-2023 [facility] Start: 03-21-2023 [facility] Start: 03-17-2023 [facility] Start: 03-04-2023 US angiography US map hemodia l access SUSAN [facility] Start: 03-04-2023 US Unspecified body region [facility] Start: 03-03-2023 [facility] Start: 02-20-2023 [facility] Start: 02-14-2023 [facility] Start: 01-31-2023 [facility] Start: 01-31-2023 [facility] Start: 01-16-2023 End: 01-17-2023 [facility] Start: 01-08-2023 [facility] Start: 12-30-2022 [facility] Start: 12-16-2022 [facility] Start: 12-16-2022 [facility] Start: 12-02-2022 [facility] Start: 12-02-2022 [facility] Start: 11-18-2022 [facility] Start: 11-04-2022 [facility] Start: 10-30-2022 [facility] Start: 10-27-2022 Blood chemistry [facility] Start: 10-27-2022 [facility] Start: 10-26-2022 Blood chemistry [facility] Start: 10-26-2022 [facility] Start: 10-25-2022 Blood chemistry [facility] Start: 10-25-2022 [facility] Start: 10-24-2022 Blood chemistry [facility] Start: 10-24-2022 End: 10-24-2022 [facility] Start: 10-23-2022 Administration of prophylactic treatment [facility] Start: 10-23-2022 Blood chemistry [facility] Start: 10-23-2022 [facility] Start: 10-22-2022 Hospital admission [facility] Start: 10-22-2022 Referral to infectio us diseases physician [facility] Start: 10-22-2022 End: 10-22-2022 [facility] Start: 10-22-2022 Blood culture for bacteria, including anaerobic screen [facility] Start: 10-21-2022 Blood culture for bacteria, including anaerobic screen [facility] Start: 10-21-2022 [facility] Start: 10-21-2022 [facility] Start: 10-15-2022 Blood chemistry [facility] Start: 10-15-2022 [facility] Start: 10-13-2022 Aerobic microbial culture [facility] Start: 10-13-2022 Blood culture for bacteria, including anaerobic screen [facility] Start: 10-13-2022 [facility] Start: 10-07-2022 [facility] Start: 10-07-2022 [facility] Start: 09-12-2022 [facility] Start: 09-11-2022 Administration of prophylactic treatment [facility] Start: 09-10-2022 Referral to infectio us diseases physician [facility] Start: 09-10-2022 Hospital admission [facility] Start: 09-10-2022 Referral to physician underwriter [facility] Start: 09-10-2022 Referral to vascular surgeon [facility] Start: 09-10-2022 Referral to lead miner [facility] Start: 09-10-2022 End: 09-10-2022 [facility] Start: 09-10-2022 Insertion of Infusio n Device into [place] Vena Cava, Percutaneous Approach [facility] Start: 08-30-2022 Referral to urologist [facility] Start: 08-29-2022 Referral to lead miner [facility] Start: 08-29-2022 Referral to infectio us diseases physician [facility] Start: 08-29-2022 Referral to physician underwriter [facility] Start: 08-29-2022 Hospital admission [facility] Start: 08-09-2022 [facility] Start: 08-09-2022 [facility] Start: 08-02-2022 [facility] Start: 07-23-2022 [facility] Start: 07-19-2022 [facility] Start: 07-17-2022 Bacteria identified in Blood by Culture Blood Culture [facility] Start: 07-17-2022 Blood culture for bacteria, including anaerobic screen Blood Culture [facility] Start: 07-05-2022 [facility] Start: 07-05-2022 [facility] Start: 06-21-2022 [facility] Start: 06-17-2022 End: 06-17-2022 [facility] Start: 06-03-2022 [facility] Start: 06-03-2022 [facility] Start: 05-20-2022 [facility] Start: 05-09-2022 End: 05-10-2022 [facility] Start: 04-22-2022 [facility] Start: 04-16-2022 End: 04-16-2022 [facility] Start: 04-09-2022 [facility] Start: 04-09-2022 [facility] Start: 04-07-2022 ADVANCE DIRECTIVE DISCUSSION ADVANCE DIRECTIVE DISCUSSION [facility] Start: 04-07-2022 DEPRESSION ASSESSMENT DEPRESSION ASS ESSMENT [facility] Start: 04-05-2022 [facility] Start: 03-21-2022 End: 03-22-2022 [facility] Start: 03-08-2022 [facility] Start: 03-05-2022 [facility] Brandan Heller, Status: Pen, Time: 1:00 PM [facility] Provider: Brandan Heller, Status: Pen, Time: 1:00 PM [facility] [facility] DO Work Phone: Start: 03-05-2022 [facility] Start: 03-05-2022 Radionuclide myocard ial perfusion stress study NM mateo perf SPECT rest & str [facility] Start: 03-05-2022 SPECT Heart perfusio n at rest and W stress and W radionuclide IV [facility] Start: 02-22-2022 [facility] Start: 02-11-2022 [facility] Start: 02-08-2022 [facility] Start: 01-25-2022 [facility] Start: 01-15-2022 Cystoscopy [facility] Start: 01-11-2022 [facility] Start: 12-28-2021 [facility] Start: 12-14-2021 [facility] Start: 12-06-2021 Influenza vaccination INFLUENZA (#1) [facility] Start: 12-05-2021 Registered Recurring Anemia Fi [facility] C[facility]-Cancer [facility] Start: 12-05-2021 [facility] Work Phone: Start: 12-05-2021 Ultrasonography of bilateral kidneys US renal BI [facility] Start: 12-05-2021 End: 12-05-2021 Patient encounter procedure Departed Clinical [facility]-Ultrasound [place] Start: 12-04-2021 End: 12-05-2021 Emergency department patient visit Departed Emergency [facility]-Emergency Room Start: 11-30-2021 [facility] Start: 11-28-2021 [facility] Start: 11-21-2021 [facility] Start: 11-21-2021 Referral to clinical group leader wafer polishing [facility] Start: 11-19-2021 Referral to urologist [facility] Start: 11-19-2021 Insertion of periphe rally inserted central catheter [facility] Start: 11-18-2021 Referral to infectio us diseases physician [facility] Start: 11-16-2021 [facility] Start: 11-15-2021 Administration of prophylactic treatment [facility] Start: 11-14-2021 Hospital admission [facility] Start: 11-14-2021 Referral to physician underwriter [facility] Start: 11-14-2021 Referral to lead miner [facility] Start: 11-14-2021 Referral to vascular surgeon [facility] Start: 11-14-2021 Drainage of Bladder with Drainage Device, Via Natural or Artificial Opening Drainage of Bladder with Drainage Device, Via Natural or Artificial Opening [facility] Start: 11-14-2021 Insertion of Intralu brenda Device into Inferior Vena Cava, Percutaneous Approach Insertion of Intraluminal Device into Inferior Vena Cava, Percutaneous Approach [facility] Start: 11-01-2021 [facility] Start: 10-23-2021 End: 10-23-2021 [facility] Start: 10-19-2021 [facility] Start: 10-03-2021 [facility] Start: 09-19-2021 [facility] Start: 09-12-2021 [facility] Start: 09-10-2021 [facility] Start: 09-05-2021 [facility] Start: 09-05-2021 [facility] Start: 08-31-2021 End: 08-31-2021 [facility] Start: 08-31-2021 End: 08-31-2021 [facility] Start: 08-24-2021 DIABETES SCREEN DIABETES SCREEN [facility] Start: 08-17-2021 [facility] Start: 07-20-2021 [facility] Start: 06-21-2021 [facility] Start: 06-12-2021 [facility] Start: 06-07-2021 [facility] Start: 05-30-2021 [facility] Start: 04-27-2021 [facility] Start: 04-23-2021 [facility] Start: 04-17-2021 COVID-19 VACCINE (4 - Booster for Moderna series) COVID-19 VACCINE (4 - Booster for Moderna series) [facility] Start: 03-22-2021 [facility] Start: 02-26-2021 [facility] Start: 02-22-2021 [facility] Start: 01-24-2021 [facility] Start: 12-12-2020 [facility] Start: 10-13-2020 [facility] Start: 10-06-2020 [facility] Start: 09-27-2020 [facility] Start: 09-21-2020 [facility] Start: 09-15-2020 [facility] Start: 09-05-2020 [facility] Start: 08-25-2020 [facility] Start: 08-25-2019 SERUM CREATININE SERUM CREATININE [facility] Start: 2015 PNEUMOCOCCAL: 65+ (1 - PCV) PNEUMOCOCCAL: 65+ (1 - PCV) [facility] Start: 2000 SHINGRIX VACCINE (1 of 2) RASHEED GRIX VACCINE (1 of 2) [facility] Start: 1995 COLOGUARD (FIT-DNA) COLOGUARD (FIT-D NA) [facility] Start: 1995 Colonoscopy COLONOSCOPY [facility] Start: 1995 COLORECTAL CANCER SCREENING COLORECTAL CANCER SCREENING [facility] Start: [address] COLONOGRAPHY [facility] Start: 1995 FECAL OCCULT BLOOD FECAL OCCULT BLOO D [facility] Start: 1995 SIGMOIDOSCOPY SIGMOIDOSCOPY [facility] Start: 1985 LIPID SCREEN LIPID SCREEN [facility] Start: 1969 Urine microalbumin profile DTAP,TDAP,TD (1 - Tdap) [facility] Start: 1968 ANNUAL PCP TEAM TEST CARRIER TRAV DISEASE VISIT ANNUAL PCP TEAM CHRONIC DISEASE VISIT [facility] Start: 1968 Hepatitis B surface antibody level LDL CHOLESTEROL [facility] Start: 1968 HEPATITIS C SCREENING HEPATITIS C SC MINA [facility] Start: 1960 3 comp foot exam completed DIABETIC FOOT EXAM [facility] Start: 1960 Hepatitis C antibody , confirmatory test DILATED RETINAL EXAM [facility] Start: 1956 PNEUMOCOCCAL: 65+ (1 - PCV) PNEUMOCOCCAL: 65+ (1 - PCV) [facility] Start: 1955 Hemoglobin A1c/Hemoglobin.total in Blood HBA1C [facility] Start: 1950 COVID-19 VACCINE (#1) COVID-19 VACCI NE (#1) [facility] Start: 1950 ABDOMINAL AORTIC ANE URYSM SCREENING ABDOMINAL AORTIC ANEURYSM SCREENING [facility] Bacteria identified in Blood by Culture [facility] Bacteria identified in Blood by Culture [facility] Bacteria identified in Unspecified specimen by Aerobe culture [facility] Basophils [#/volume] in Blood by Automated count [facility] Basophils/100 leukoc ytes in Blood by Automated count [facility] Blood chemistry [facility] Comprehensive metabo lic 1999 panel - Serum or Plasma [facility] Work Phone: Comprehensive metabo lic 1999 panel - Serum or Plasma [facility] Comprehensive metabo lic 1999 panel - Serum or Plasma [facility] Comprehensive metabo lic 1999 panel - Serum or Plasma [facility] Comprehensive metabo lic 1999 panel - Serum or Plasma [facility] Comprehensive metabo lic 1999 panel - Serum or Plasma [facility] Comprehensive metabo lic 1999 panel - Serum or Plasma [facility] Comprehensive metabo lic 1999 panel - Serum or Plasma [facility] Comprehensive metabo lic 1999 panel - Serum or Plasma [facility] Comprehensive metabo lic 1999 panel - Serum or Plasma [facility] Comprehensive metabo lic 1999 panel - Serum or Plasma [facility] Comprehensive metabo lic 1999 panel - Serum or Plasma [facility] Comprehensive metabo lic 1999 panel - Serum or Plasma [facility] Comprehensive metabo lic 1999 panel - Serum or Plasma [facility] Comprehensive metabo lic 1999 panel - Serum or Plasma [facility] Comprehensive metabo lic 1999 panel - Serum or Plasma [facility] Comprehensive metabo lic 1999 panel - Serum or Plasma [facility] Comprehensive metabo lic 1999 panel - Serum or Plasma [facility] Comprehensive metabo lic 1999 panel - Serum or Plasma [facility] Comprehensive metabo lic 1999 panel - Serum or Plasma [facility] Comprehensive metabo lic 1999 panel - Serum or Plasma [facility] Eosinophils [#/volum e] in Blood [facility] Eosinophils/100 leukocytes in Blood by Automated count [facility] Erythrocyte distribu tion width [Ratio] by Automated count [facility] Erythrocytes [#/volu me] in Blood [facility] Ferritin [Mass/volum e] in Serum or Plasma [facility] Hematocrit [Volume Fraction] of Blood [facility] Hemoglobin [Mass/vol ume] in Blood [facility] Hepatitis A virus antibody, IgM type [facility] Hepatitis B core ant ibody measurement, IgM type [facility] Hepatitis B virus zamora rface Ab [Presence] in Serum [facility] Hepatitis B virus zamora rface Ag [Presence] in Serum or Plasma by Immunoassay [facility] Hepatitis C virus Ig G Ab [Presence] in Serum or Plasma by Immunoassay [facility] Hepatitis C virus RN A [log units/volume] (viral load) in Serum or Plasma by JAYMIE with probe detection [facility] Hepatitis C virus RN A [Units/volume] (viral load) in Serum or Plasma by JAYMIE with probe detection [facility] End: 05-08-2023 IR NEPH TUBE CHANGE IR NEPH TUBE CHANGE Radiology Routine Hydronephrosis, unspecified hydronephrosis type Every 2 months for 6 Occurrences starting 05/08/2022 until 05/08/2023 [facility] Work Phone: Comment on above: Every 2 months for 6 Occurrences starting 05/08/2022 until 05/08/2023 Leukocytes [#/volume ] corrected for nucleated erythrocytes in Blood by Automated coun [facility] Leukocytes [#/volume ] in Blood [facility] Lymphocytes [#/volum e] in Blood by Automated count [facility] Lymphocytes/100 leukocytes in Blood by Automated count [facility] MCH [Entitic mass] b y Automated count [facility] MCHC [Mass/volume] b y Automated count [facility] MCV [Entitic volume] by Automated count [facility] Monocytes [#/volume] in Blood by Automated count [facility] Monocytes/100 leukoc ytes in Blood by Automated count [facility] Neutrophils [#/volum e] in Blood by Automated count [facility] Neutrophils/100 leukocytes in Blood by Automated count [facility] Nucleated erythrocyt es [Presence] in Blood by Automated count [facility] Patient Education [facility] Work Phone: Patient referral [facility] Work Phone: Platelet mean volume [Entitic volume] in Blood by Automated count [facility] Platelets [#/volume] in Blood [facility] [place] [facility] AV IR [facility] Immunizations Immunization Date Immunization Notes Care Provider [facility] 01-21-2022 influenza virus vaccine, unspecified formulation Kiko Lue [facility] 01-21-2022 influenza, high dose seasonal, preservative-free Maye Claire Murray Work Phone: [facility] 250 DO Work Phone: Comment on above: Series: 02-20-2021 SARS-CoV-2 (COVID-19 ) mRNA-1273 vaccine Kiko Lue [facility] 01-30-2021 influenza, unspecifi ed formulation Kiko Lue [facility] 09-05-2020 SARS-CoV-2 (COVID-19 ) mRNA-1273 vaccine Kiko Lue [facility] 08-03-2020 SARS-CoV-2 (COVID-19 ) [id number] vaccine Kiko Corbett [facility] Payers Date Payer Category Payer Private Health Insurance [id number] 2020 Self-pay [id number] 2018 Medicaid [id number] 2007 Medicare [id number] 2.1 [id number] 2007 Medicare [id number] 1959 Medicaid [id number] 2. [id number] 1959 Medicare [id number] 1950 Unknown [id number] 2.16.84 0.1.972447.3.579.2.593 1950 Unknown [id number] 2.16. 840.1.478508.3.579.2.356 1950 Unknown [id number] 2.16. 840.1.032481.3.579.2.356 1950 Unknown [id number] 2.16. 840.1.334568.3.579.2.356 1950 Unknown [id number] 2.16. 840.1.177263.3.579.2.356 1950 Unknown [id number] 2.16. 840.1.043252.3.579.2.356 1950 Unknown [id number] 2.16.8 40.1.367879.3.579.2.727 Unknown Unknown [id number] 2.16.8 40.1.997203.3.579.2.531 Unknown [id number] .16.8 40.1.856946.3.579.2.531 Unknown [id number] .16.8 40.1.074633.3.579.2.531 Unknown [id number] .16.8 40.1.161732.3.579.2.531 Unknown [id number] .16.8 40.1.455037.3.579.2.531 Unknown [id number] .16.8 40.1.542205.3.579.2.531 Unknown [id number] .16.8 40.1.052605.3.579.2.531 Unknown [id number] .16.8 40.1.549185.3.579.2.531 Unknown [id number] .16.8 40.1.775421.3.579.2.531 Unknown [id number] 16.8 40.1.562309.3.579.2.531 Unknown [id number] .16.8 40.1.057297.3.579.2.531 Unknown [id number] 16.8 40.1.615080.3.579.2.531 Unknown [id number] .16.8 40.1.793917.3.579.2.531 Unknown [id number] 16.8 40.1.703466.3.579.2.531 Unknown [id number] .16.8 40.1.085221.3.579.2.531 Unknown [id number] .16.8 40.1.163537.3.579.2.531 Unknown [id number] .16.8 40.1.227125.3.579.2.531 Unknown [id number] .16.8 40.1.678058.3.579.2.531 Social History Date Type Detail Facility Unknown if ever smoked [facility] Sex Assigned At [facility] Start: 12-04-2021 End: 08-05-2023 Tobacco smoking status NHIS Smoker (finding) [facility] Start: 1950 Sex Assigned At Male [facility] Start: 11-19-2018 End: 06-07-2022 Tobacco smoking status Light tobacco smoker (finding) [facility] Start: 08-08-2015 Caffeine use Caffeine use [facility] 250 DO Work Phone: Comment on above: a lot of pop; daily basis at home, none now at long term; 1 pack every 3 days; Start: 08-08-2015 Tobacco smoking status NHIS Smokes tobacco daily [facility] History of tobacco use Cigarette Smoker [facility] Start: 08-08-2015 Tobacco use and exposure Smokeless tobacco non-user [facility] Start: 11-23-2021 Alcohol intake Current drinke r of alcohol (finding) [facility] Start: 08-08-2015 Alcohol Comment couldn't get p ain med's so I drink a lot [facility] Start: 1950 Sex Assigned At Not on file [facility] Tobacco smoking status NHIS Tobacco smoking consumption unknown [facility] Medical Equipment Procedure Code Equipment Code Equipment Original Text Equipment Identifier Dates Insertion, catheter, dialysis, tunneled, with imaging guidance ()[id number] FDA Start: 08-05-2023 Cystoscopy, with ureteral calculus manipulation and stent placement ()[id number] FDA Start: 05-25-2020 Cystoscopy, with ureteral calculus manipulation and stent placement ()[id number] FDA Start: 05-25-2020 Creation or revision of arteriovenous fistula ()[id number] FDA Start: 04-16-2023 Goals Date Patient Goal Desired Activity /State Functional Status Date Assessment Result Facility 12-19-2022 Functional Status N/A [facility] 10-24-2022 Functional status Patient at Baseline [facility] Work Phone: 09-12-2022 Functional status Patient at Baseline [facility] Work Phone: 09-10-2022 Functional status Patient at Baseline [facility] Work Phone: 08-29-2022 Functional status Patient at Baseline [facility] Work Phone: 08-01-2022 Functional Status N/A [facility] 06-07-2022 Functional Status N/A [facility] 04-26-2022 Functional Status N/A [facility] 11-21-2021 Functional status Patient at Baseline [facility] Work Phone: 11-14-2021 Functional status Functional Sta tus Comment Pt has assistance with all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 of systems is negative PMF - Medical History Medical History: Medical History [...] NONE X 7 MONTHS Social History Comments: [facility] Home Medications & Allergies Allergies codeine Allergy [...] for coordination of care (as documented) and uqws-ml-jbqz counseling of patient and/or family. Dictated By: Clara Chew APRN DD/ 1149 Signed By: <Electronically signed by TYSON Chew> 04/22/22 1157 [facility] Work Phone: 1(260) 422-775112-16-2022 Progress note Author Jose M Landry [facility] March 22, 2022 8:16am Note Date/Time January 25, 2022 1 1:10am [facility] [place] [address] Hem/Onc Follow Up Note - OP Signed with Addenda Patient: Simon Lott MR#: [id number] : 1950 Acct:[id number] Age/Sex: 71 / M Type: REG RCR [...] injections. Addendum Dictated By: Jose M Landry II DO Addendum Signed By: 03/22/22815 Addendum Cosigned [...] HPI: This is a very nice 69-year-old -Ivorian gentleman who presents with mild anemia and [...] train on a bicycle. This happened on [facility]. He denies any weight loss, significant or [...] new complaints. He does reside at the [facility] on [facility]. He may be moving. He has a [...] for coordination of care (as documented) and gssh-np-qvwl counseling of patient and/or family. [facility] - Medical History Medical History: Medical History [...] (Last Reviewed 01/11/22 @ 16:33 by Felicitas Cameron RN) Mother Diabetes Father Diabetes Sister Diabetes Brother Diabetes - Social History Smoking Status: Current every day smoker Tobacco Type: cigarettes Substance Use Type: None Substance Abuse Comment: NONE X 7 MONTHS Social History Comments: [facility] Additional Data - Additional Objective Data Height/Weight: [...] Jose M Landry II, DO> 01/25/22 1115 [facility] Work Phone: [phone]) [phone] Evaluation note* Encounter Date Diagnosis Assessment Notes [...] to 3.8 mg/dL. Patient is a long-term long term resident and he has mild dementia and [...] mellitus (ICD-10 - E11.21) He follow-up with [facility]. He stated that diabetes is [...] was referred to urology as stated above. [facility] 09-14-2022 Evaluation note* Encounter Date Diagnosis [...] the most crucial aspect at this point. [facility] 09-02-2022 Hospital Discharge instructions Patient Education [...] transplant. Follow these instructions at home: Take lifi-tbx-hpswbth and prescription medicines only as told by [...] 01/19/2008 Document Revised: 04/04/2018 Document Reviewed: 04/04/2018 [employer] Patient Education 2020 [employer]. 12/07/2021 09:43:20 Calorie Counting for Weight Loss [...] 03/24/2006 Document Revised: 12/11/2018 Document Reviewed: 02/21/2017 [employer] Patient Education 2020 [employer]. Follow Up Care 11/23/2021 11:37:24 With:Aric HOLLOWAY, Kiko Gautam, VEENA, URO Address: When: Unknown [facility] Miguelangel 09-01-2022 Evaluation note* Encounter Date [...] antibiotic treatment at home (ICD-10 - Z79.2) [facility] 09-01-2022 History of Present illness Narrative* Patient is new to this provider. He resides in a long term, and has multiple cardiac risk factors including [...] very limited gets around in a wheelchair, long term resident. He is status post left transmetatarsal amputation, and his right foot is bandaged completely, for a nonhealing ulcer, which has been there for about 4 to 5 months. Followed by wound nurse once a week at the long term. * Continues to smoke. * EKG today normal sinus rhythm [address] interval 180 ms QRS duration 112 ms [...] arise, * Sincerely, * Renata Wyatt MD [facility] [address] DO Work Phone: 1(798) 322-623109-01-2022 History of Present illness Narrative* Patient is new to this provider. He resides in a long term, and has multiple cardiac risk factors including [...] very limited gets around in a wheelchair, long term resident. He is status post left transmetatarsal amputation, and his right foot is bandaged completely, for a nonhealing ulcer, which has been there for about 4 to 5 months. Followed by wound nurse once a week at the long term. * Continues to smoke. * EKG today normal sinus rhythm [address] interval 180 ms QRS duration 112 ms [...] arise, * Sincerely, * Renata Wyatt MD [facility] Work Phone: 1(641) 610-649308-17-2022 Discharge summary Author Landon Grullon [facility] November 21, 2021 7:38pm Note Date/Time November 21, 2021 5: 27pm [facility] ENTER [address] [place] [address] Discharge Summary Signed Patient: Simon Lott MR#: [id number] : 1950 Acct:[id number] Age/Sex: 71 / M Adm Date: 2 Loc: Room: 6F9459-[address]: Landon Grullon MD Copies to: Maye Murray,DO Landon Grullon MD~ Providers Date of Discharge: 11/21/21 Discharging Provider: Landon Grullon Primary Care Provider: aMye Murray Consults: 11/14/21 17:38 Consult to Nephrology Routine Consult to Podiatry Routine Consult to Vascular Surgery Routine 11/17/21 16:24 Consult to Occupational Therapy Routine Consult to Physical Therapy Routine 11/18/21 15:41 Consult to Infectious Diseases Routine 11/19/21 15:53 Vascular Lab PICC Consult Routine 11/19/21 15:57 Consult to Urology Routine 11/21/21 08:41 Consult to LOG COOKER Routine Discharge Diagnosis (1) Type 2 diabetes [...] presented to the emergency department from his half-way facility with sepsis. Patient was also noted [...] plan to continue this course at his half-way facility. 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 Instructions: [facility] COVID-19 Discharge Instructions Prescriptions: New furosemide 40 [...] <Electronically signed by Landon Grullon MD> 11/21/21 193 [facility] Work Phone: [phone] 166-375108-17-2022 Progress note Author Johan Taylor [facility] November 21, 2021 5:16pm Note Date/Time November 21, 2021 5: 16pm [facility] [address] [place] [address] Nephrology Progress Note Signed Patient: Simon Lott MR#: [id number] : 1950 Acct:[id number] Age/Sex: 71 / M Adm Date: 2 Loc: Room: [address] [place] [address] Type: ADM IN Attending Dr: Landon Grullon MD Copies to: ~ Date of Service: 11/21/2021 Subjective Subjective Narrative: Mr. Lott is a 71-year male with medical history of CKD, diabetes mellitus, hypertension, anemia, secondary hyperparathyroidism, alcoholic liver disease, PAD, diabetic foot ulcer, CVA, hepatitis C and nephrolithiasis. He was transferred from the long term due to the fever. In ER, he [...] preparation to discharge on antibiotics to his long term. He did refuse invasive intervention during hospitalization [...] 50 Mg Tablet) 100 mg PO TID.WITH.MEALS [facility] Stop: 11/15/22 07:59 Last Admin: 11/21/21 16:46 Dose: 100 mg Acetaminophen (Acetaminophen 325 Mg Tablet) 650 mg PO Q4H PRN PRN Reason: Pain Stop: 11/14/22 17:41 Last Admin: 11/15/21 18:15 Dose: 650 mg Amitriptyline HCl (Amitriptyline 10 Mg Tablet) 10 mg PO HS [facility] Stop: 11/14/22 21:59 Last Admin: 11/20/21 21:12 [...] 60 Mg Capsule.) 60 mg PO DAILY [facility] Stop: 11/16/22 08:59 Last Admin: 11/21/21 09:23 Dose: 60 mg Ferrous Sulfate (Ferrous Sulfate 324 Mg Tablet.) 324 mg PO MoWeFr@0900 [facility] Stop: 11/16/22 08:59 Last Admin: 11/21/21 09:22 Dose: 324 mg Folic Acid (Folic Acid 1 Mg Tablet) 1 mg PO DAILY [facility] Stop: 11/15/22 08:59 Last Admin: 11/21/21 09:22 Dose: 1 mg Furosemide (Furosemide 40 Mg Tablet) 40 mg PO BID@0800,1600 [facility] Stop: 11/21/22 07:59 Last Admin: 11/21/21 16:45 Dose: 40 mg Gabapentin (Gabapentin 600 Mg Tablet) 600 mg PO QPM [facility] Stop: 11/15/22 20:59 Last Admin: 11/20/21 21:13 Dose: 600 mg Glucose (Dextrose 40% Gel 15 Gm Tube) 0 gm PO PRN PRN PRN Reason: Hypoglycemia Stop: 11/14/22 17:37 Heparin Sodium (Porcine) (Heparin 5,000 Unit/Ml Vial) 5,000 unit SUBCUT Q12HR [facility] Stop: 11/14/22 20:59 Last Admin: 11/21/21 09:23 Dose: 5,000 unit Hydralazine HCl (Hydralazine 20 Mg/Ml Vial) 10 mg IV-PUSH Q4H PRN PRN Reason: Hypertension Stop: 11/14/22 21:49 Last Admin: 11/15/21 15:59 Dose: 10 mg Ertapenem 0.5 gm/ Sodium (Chloride) 100 mls @ 200 mls/hr IV Q24H [facility] Stop: 11/20/22 16:59 Last Admin: 11/20/21 17:30 Dose: 200 mls/hr Insulin Aspart (Insulin Aspart 300 Units/3 Ml Insuln.Pen) 0 units SUBCUT TID.WM.HS [facility]; Protocol Stop: 11/14/22 21:59 Last Admin: 11/21/21 13:48 Dose: Not Given Insulin Detemir (Insulin Detemir 300 Units/3 Ml Insuln.Pen) 42 units SUBCUT DAILY [facility] Stop: 11/15/22 08:59 Last Admin: 11/21/21 09:25 Dose: 42 units Losartan Potassium (Losartan 50 Mg Tablet) 50 mg PO DAILY [facility] Stop: 11/18/22 08:59 Last Admin: 11/21/21 09:22 [...] Marino Dorsey M.D.11/21/2021 11:09 AM Dictation Location: [place] [address] Any impression(s) listed above is documentation that [...] * Patient will be discharged to his long term on vancomycin and ertapenem. He will follow-up [...] <Electronically signed by MD Johan Taylor> 11/21/211715 [facility] Work Phone: [phone] Procedure [facility]08-17-2022 Procedure [facility]08-16-2022 Progress note Author Johan Taylor [facility] November 20, 2021 6:31pm Note Date/Time November 20, 2021 6: 31pm [facility] [address] [place] [address] Nephrology Progress Note Signed Patient: Simon Lott MR#: [id number] : 1950 Acct:[id number] Age/Sex: 71 / M Adm Date: 2 Loc: Room: [address] [place] [address] Type: ADM IN Attending Dr: Landon Grullon MD Copies to: ~ Date of Service: 11/20/2021 Subjective Subjective Narrative: Mr. Lott is a 71-year male with medical history of CKD, diabetes mellitus, hypertension, anemia, secondary hyperparathyroidism, alcoholic liver disease, PAD, diabetic foot ulcer, CVA, hepatitis C and nephrolithiasis. He was transferred from the long term due to the fever. In ER, he [...] each MISCELLANE ONCE PRN; Protocol PRN Reason: ZZ.Pharmacy Consult Ferrous Sulfate (Ferrous Sulfate 324 Mg Tablet.) 324 mg PO MoWeFr@0900 [facility] Stop: 11/16/22 08:59 Last Admin: 11/19/21 08:50 Dose: 324 mg Folic Acid (Folic Acid 1 Mg Tablet) 1 mg PO DAILY [facility] Stop: 11/15/22 08:59 Last Admin: 11/20/21 12:33 Dose: 1 mg Furosemide (Furosemide 40 Mg/4 Ml Vial) 40 mg IV-PUSH BID@0800,1600 [facility] Stop: 11/15/22 15:59 Last Admin: 11/20/21 17:30 Dose: 40 mg Gabapentin (Gabapentin 600 Mg Tablet) 600 mg PO QPM [facility] Stop: 11/15/22 20:59 Last Admin: 11/19/21 21:45 Dose: 600 mg Glucose (Dextrose 40% Gel 15 Gm Tube) 0 gm PO PRN PRN PRN Reason: Hypoglycemia Stop: 11/14/22 17:37 Heparin Sodium (Porcine) (Heparin 5,000 Unit/Ml Vial) 5,000 unit SUBCUT Q12HR [facility] Stop: 11/14/22 20:59 Last Admin: 11/20/21 12:33 Dose: 5,000 unit Hydralazine HCl (Hydralazine 20 Mg/Ml Vial) 10 mg IV-PUSH Q4H PRN PRN Reason: Hypertension Stop: 11/14/22 21:49 Last Admin: 11/15/21 15:59 Dose: 10 mg Ertapenem 0.5 gm/ Sodium (Chloride) 100 mls @ 200 mls/hr IV Q24H [facility] Stop: 11/20/22 16:59 Last Admin: 11/20/21 17:30 Dose: 200 mls/hr Vancomycin HCl 1.25 gm/ (Dextrose) 275 mls @ 183.333 mls/hr IV ONCE ONE Stop: 11/20/21 19:29 Insulin Aspart (Insulin Aspart 300 Units/3 Ml Insuln.Pen) 0 units SUBCUT TID.WM.HS [facility]; Protocol Stop: 11/14/22 21:59 Last Admin: 11/20/21 17:31 Dose: Not Given Insulin Detemir (Insulin Detemir 300 Units/3 Ml Insuln.Pen) 42 units SUBCUT DAILY [facility] Stop: 11/15/22 08:59 Last Admin: 11/20/21 12:36 Dose: 42 units Losartan Potassium (Losartan 50 Mg Tablet) 50 mg PO DAILY [facility] Stop: 11/18/22 08:59 Last Admin: 11/20/21 12:33 Dose: 50 mg Loteprednol Etabonate (Loteprednol 0.5% Op Susp 100 Drops/5 Ml Bottle) 1 drops EYE-LEFT QID [facility] Stop: 11/14/22 17:59 Last Admin: 11/20/21 17:31 [...] DAILY [facility] Stop: 11/18/22 15:39 Last Admin: 11/20/21 12:33 Dose: 30 mg Saccharomyces Boulardii (Saccharomyces Boulardii 250 Mg Capsule) 250 mg PO BID.WITH.MEALS [facility] Stop: 11/15/22 07:59 Last Admin: 11/20/21 17:31 [...] signed by MD Johan Taylor> 11/20/21 1831 [facility] Work Phone: [phone] Progress note Author Landon Grullon [facility] November 20, 2021 4:01pm Note Date/Time November 20, 2021 1: 41pm [facility] [address] [place] [address] Hospitalist Progress Note Signed Patient: Simon Lott MR#: [id number] : 1950 Acct:[id number] Age/Sex: 71 / M Adm Date: 2 Loc: Room: [address] [place] [address] Type: ADM IN Attending Dr: Landon Grullon MD Copies to: ~ Date of Service: 11/20/2021 Subjective Subjective Narrative: Patient seen and assessed at bedside today. He notes no significant pain or discomfort. He is eagerly awaiting PICC line placement, as he would like to be discharged back to half-way facility. No acute events were noted overnight. [...] 11/16/21 09:00 11/20/21 12:32 Duloxetine 60 Mg Capsule. PO 11/16/22 08:59 [...] Insuln.Pen SUBCUT 11/14/22 21:59 Not Given TID.WM.HS [facility] Protocol Insulin Detemir 42 units 11/15/21 09:00 [...] signed by Landon Grullon MD> 11/20/21 1601 [facility] Work Phone: [phone] 472-867108-16-2022 Progress note Author Riya Pitt [facility] November 20, 2021 7:34am Note Date/Time November 20, 2021 7: 34am [facility] [address] [place] [address] Infect. Disease Progress Note Signed Patient: Simon Lott MR#: [id number] : 1950 Acct:[id number] Age/Sex: 71 / M Adm Date: 2 Loc: 4 Room: [id number] Type: ADM IN Attending Dr: Landon Grullon [...] 200 mls/hr IV Q12H [facility] Last Admin: 11/20/21 05:47 Dose: 200 mls/hr Insulin Aspart (Insulin Aspart 300 Units/3 Ml Insuln.Pen) 0 units SUBCUT TID.WM.HS [facility]; Protocol Stop: 11/14/22 21:59 Last Admin: 11/19/21 21:46 Dose: Not Given Insulin Detemir (Insulin Detemir 300 Units/3 Ml Insuln.Pen) 42 units SUBCUT DAILY [facility] Stop: 11/15/22 08:59 Last Admin: 11/19/21 08:50 Dose: 42 units Losartan Potassium (Losartan 50 Mg Tablet) 50 mg PO DAILY [facility] Stop: 11/18/22 08:59 Last Admin: 11/19/21 08:49 Dose: 50 mg Loteprednol Etabonate (Loteprednol 0.5% Op Susp 100 Drops/5 Ml Bottle) 1 drops EYE-LEFT QID [facility] Stop: 11/14/22 17:59 Last Admin: 11/19/21 21:45 Dose: 1 drops Melatonin (Melatonin 5 Mg Tablet) 5 mg PO HS PRN PRN Reason: Insomnia Stop: 11/14/22 17:41 Last Admin: 11/16/21 21:23 Dose: 5 mg Metoprolol Tartrate (Metoprolol Tartrate 5 Mg/5 Ml Vial) 5 mg IV-PUSH Q4H PRN PRN Reason: Blood Pressure Stop: 11/14/22 21:49 Nifedipine (Nifedipine Er.24hr 30 Mg Tab.Er.24) 30 mg PO DAILY [facility] Stop: 11/18/22 15:39 Last Admin: 11/19/21 08:49 Dose: 30 mg Saccharomyces Boulardii (Saccharomyces Boulardii 250 Mg Capsule) 250 mg PO BID.WITH.MEALS [facility] Stop: 11/15/22 07:59 Last Admin: 11/19/21 18:18 [...] 0.4 Mg Cap.Er.24h) 0.4 mg PO BID [facility] Stop: 11/14/22 20:59 Last Admin: 11/19/21 21:45 [...] signed by MD Riya Pitt> 11/20/21 0734 [facility] Work Phone: [phone] 463-202108-16-2022 Progress note [facility] November 19, 2021 11:24pm Note Date/Time November 19, 2021 11 :05pm [facility] [address] [place] [address] Nephrology Progress Note Signed Patient: Simon Lott MR#: [id number] : 1950 Acct:[id number] Age/Sex: 71 / M Adm Date: 2 Loc: Room: [address] [place] [address] Type: ADM IN Attending Dr: Ladnon Grullon MD Copies to: ~ Date of Service: 11/19/2021 Subjective Subjective Narrative: Mr. Lott is a 71-year male with medical history of CKD, diabetes mellitus, hypertension, anemia, secondary hyperparathyroidism, alcoholic liver disease, PAD, diabetic foot ulcer, CVA, hepatitis C and nephrolithiasis. He was transferred from the long term due to the fever. In ER, he [...] 200 mls/hr IV Q12H [facility] Last Admin: 11/19/21 18:18 Dose: 200 mls/hr Insulin Aspart (Insulin Aspart 300 Units/3 Ml Insuln.Pen) 0 units SUBCUT TID.WM.HS [facility]; Protocol Stop: 11/14/22 21:59 Last Admin: 11/19/21 21:46 Dose: Not Given Insulin Detemir (Insulin Detemir 300 Units/3 Ml Insuln.Pen) 42 units SUBCUT DAILY [facility] Stop: 11/15/22 08:59 Last Admin: 11/19/21 08:50 Dose: 42 units Losartan Potassium (Losartan 50 Mg Tablet) 50 mg PO DAILY [facility] Stop: 11/18/22 08:59 Last Admin: 11/19/21 08:49 Dose: 50 mg Loteprednol Etabonate (Loteprednol 0.5% Op Susp 100 Drops/5 Ml Bottle) 1 drops EYE-LEFT QID [facility] Stop: 11/14/22 17:59 Last Admin: 11/19/21 21:45 Dose: 1 drops Melatonin (Melatonin 5 Mg Tablet) 5 mg PO HS PRN PRN Reason: Insomnia Stop: 11/14/22 17:41 Last Admin: 11/16/21 21:23 Dose: 5 mg Metoprolol Tartrate (Metoprolol Tartrate 5 Mg/5 Ml Vial) 5 mg IV-PUSH Q4H PRN PRN Reason: Blood Pressure Stop: 11/14/22 21:49 Nifedipine (Nifedipine Er.24hr 30 Mg Tab.Er.24) 30 mg PO DAILY [facility] Stop: 11/18/22 15:39 Last Admin: 11/19/21 08:49 Dose: 30 mg Saccharomyces Boulardii (Saccharomyces Boulardii 250 Mg Capsule) 250 mg PO BID.WITH.MEALS [facility] Stop: 11/15/22 07:59 Last Admin: 11/19/21 18:18 Dose: 250 mg Sodium Bicarbonate (Sodium Bicarbonate 650 Mg Tablet) 650 mg PO TID [facility] Stop: 11/15/22 13:59 Last Admin: 11/19/21 21:45 Dose: 650 mg Sodium Chloride (Sodium Chloride 0.9 % 10 Ml Syringe) 0 ml IV-PUSH PRN PRN PRN Reason: Flush Stop: 11/14/22 12:53 Last Admin: 11/18/21 09:06 Dose: 10 ml Sodium Chloride (Sodium Chloride 0.9 % 10 Ml Syringe) 0 ml IV-PUSH QSHIFT [facility] Stop: 11/14/22 21:59 Last Admin: 11/19/21 21:47 [...] Fawad Nicholson M.D.11/19/2021 3:27 PM Dictation Location: [place] [address] Any impression(s) listed above is documentation that [...] <Electronically signed by MD Johan Taylor> 11/19/21 3234 [facility] Work Phone: [phone] Consult note Author Kiko Corbett [facility] November 19, 2021 8:05pm Note Date/Time November 19, 2021 7: 01pm [facility] [address] [place] [address] Urology Consult Note Signed Patient: Simon Lott MR#: [id number] : 1950 Acct:[id number] Age/Sex: 71 / M Adm Date: 2 Loc: Room: [address] [place] [address] Type: ADM IN Attending Dr: Landon Grullon [...] % (Auto) N/A, Lymph % (Auto) N/A, Sullivan % (Auto) N/A, Eos % (Auto) N/A, Baso % (Auto) N/A, Neut # (Auto) N/A, Lymph # (Auto) N/A, Sullivan # (Auto) N/A, Eos # (Auto) N/A, [...] % (Auto) N/A, Lymph % (Auto) N/A, Sullivan % (Auto) N/A, Eos % (Auto) N/A, Baso % (Auto) N/A, Neut # (Auto) N/A, Lymph # (Auto) N/A, Sullivan # (Auto) N/A, Eos # (Auto) N/A, [...] medical history including IDDM, CVA on Plavix [id number] hx of BL ureteral stones s/p intervention [...] <Electronically signed by Kiko Corbett MD> 11/19/212004 [facility] Work Phone: [phone] 841-457408-15-2022 Progress note Author Landon Grullon [facility] November 19, 2021 3:23pm Note Date/Time November 19, 2021 3: 09pm [facility] [address] [place] [address] Hospitalist Progress Note Signed Patient: Simon Lott MR#: [id number] : 1950 Acct:[id number] Age/Sex: 71 / M Adm Date: 2 Loc: 4 Room: [address] [place] [address] Type: ADM IN Attending Dr: Landon Grullon [...] Insuln.Pen SUBCUT 11/14/22 21:59 Not Given TID.WM.HS [facility] Protocol Insulin Detemir 42 units 11/15/21 09:00 [...] signed by Landon Grullon MD> 11/19/21 1523 [facility] Work Phone: [phone] Consult note Author Riya Pitt [facility] November 19, 2021 9:10am Note Date/Time November 19, 2021 8: 57am [facility] [address] [place] [address] Infect. Disease Consult Note Signed Patient: Simon Lott MR#: [id number] : 1950 Acct:[id number] Age/Sex: 71 / M Adm Date: 2 Loc: Room: [address] [place] [address] Type: ADM IN Attending Dr: Deo Bernabe DO Copies to: DO Riya Mays MD Shawn J Warner, DO~ HPI Data of Consult Consult date: 11/19/21 Requesting Physician: Deo Bernabe DO Primary Care Provider: Maye Murray DO Consult Narrative History of present illness: Mr. Lott is a 71 year old male who was admitted back on November 14 sent over from a half-way facility due to fever. He was found [...] the diabetic footwound. CC: Deo Bernabe DO [facility] Attestation Statement: The following information was validated [...] 5,000 Unit/Ml Vial) 5,000 unit SUBCUT Q12HR [facility] Stop: 11/14/22 20:59 Last Admin: 11/19/21 08:49 Dose: 5,000 unit Hydralazine HCl (Hydralazine 20 Mg/Ml Vial) 10 mg IV-PUSH Q4H PRN PRN Reason: Hypertension Stop: 11/14/22 21:49 Last Admin: 11/15/21 15:59 Dose: 10 mg Meropenem (Merrem) 1 gm in 100 mls @ 200 mls/hr IV Q12H [facility] Last Admin: 11/19/21 05:10 Dose: 200 mls/hr Insulin Aspart (Insulin Aspart 300 Units/3 Ml Insuln.Pen) 0 units SUBCUT TID.WM.HS [facility]; Protocol Stop: 11/14/22 21:59 Last Admin: 11/19/21 08:37 Dose: Not Given Insulin Detemir (Insulin Detemir 300 Units/3 Ml Insuln.Pen) 42 units SUBCUT DAILY [facility] Stop: 11/15/22 08:59 Last Admin: 11/19/21 08:50 Dose: 42 units Losartan Potassium (Losartan 50 Mg Tablet) 50 mg PO DAILY [facility] Stop: 11/18/22 08:59 Last Admin: 11/19/21 08:49 Dose: 50 mg Loteprednol Etabonate (Loteprednol 0.5% Op Susp 100 Drops/5 Ml Bottle) 1 drops EYE-LEFT QID [facility] Stop: 11/14/22 17:59 Last Admin: 11/19/21 08:50 Dose: 1 drops Melatonin (Melatonin 5 Mg Tablet) 5 mg PO HS PRN PRN Reason: Insomnia Stop: 11/14/22 17:41 Last Admin: 11/16/21 21:23 Dose: 5 mg Metoprolol Tartrate (Metoprolol Tartrate 5 Mg/5 Ml Vial) 5 mg IV-PUSH Q4H PRN PRN Reason: Blood Pressure Stop: 11/14/22 21:49 Nifedipine (Nifedipine Er.24hr 30 Mg Tab.Er.24) 30 mg PO DAILY [facility] Stop: 11/18/22 15:39 Last Admin: 11/19/21 08:49 Dose: 30 mg Saccharomyces Boulardii (Saccharomyces Boulardii 250 Mg Capsule) 250 mg PO BID.WITH.MEALS [facility] Stop: 11/15/22 07:59 Last Admin: 11/19/21 08:50 [...] 473 Ml Solution) 0 ml TOPICAL BID [facility] Stop: 11/14/22 20:59 Last Admin: 11/19/21 08:38 [...] signed by MD Riya Pitt> 11/19/21 0910 [facility] Work Phone: [phone] Progress note Author Deo Bernabe [facility] November 18, 2021 3:44pm Note Date/Time November 18, 2021 3: 44pm [facility] [address] [place] [address] Hospitalist Progress Note Signed Patient: Simon Lott MR#: [id number] : 1950 Acct:[id number] Age/Sex: 71 / M Adm Date: 2 Loc: Room: [address] [place] [address] Type: ADM IN Attending Dr: Deo Bernabe [...] Insuln.Pen SUBCUT 11/14/22 21:59 Not Given TID.WM.HS [facility] Protocol Insulin Detemir 42 units 11/15/21 09:00 [...] diet Documented By: Deo Bernabe DO 11/18/21 154 Signed By: <Electronically signed by Deo Bernabe DO> 11/18/21 1544 [facility] Work Phone: [phone] Progress note Author Olga Lidia Martin [facility] November 18, 2021 12:35pm Note Date/Time November 18, 2021 12 :24pm [facility] [address] [place] [address] Nephrology Progress Note Signed Patient: Simon Lott MR#: [id number] : 1950 Acct:[id number] Age/Sex: 71 / M Adm Date: 2 Loc: Room: [id number] Type: ADM IN Attending Dr: Deo Bernabe DO Copies to: ~ Date of Service: 11/18/2021 Subjective Subjective Narrative: This is a 71-year male with medical history of CKD, diabetes mellitus, hypertension, anemia, secondary hyperparathyroidism, alcoholic liver disease, PAD, diabetic foot ulcer, CVA, hepatitis C and nephrolithiasis was transferred from the long term due to the fever. 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 Musculoskeletal: No joint [...] 50 Mg Tablet) 100 mg PO TID.WITH.MEALS [facility] Stop: 11/15/22 07:59 Last Admin: 11/18/21 11:35 Dose: 100 mg Acetaminophen (Acetaminophen 325 Mg Tablet) 650 mg PO Q4H PRN PRN Reason: Pain Stop: 11/14/22 17:41 Last Admin: 11/15/21 18:15 Dose: 650 mg Amitriptyline HCl (Amitriptyline 10 Mg Tablet) 10 mg PO HS [facility] Stop: 11/14/22 21:59 Last Admin: 11/17/21 21:45 Dose: 10 mg Ammonium Lactate (Ammonium Lactate 12% Lot 226 Gm Bottle) 1 applic TOPICAL QSHIFT [facility] Stop: 11/14/22 21:59 Last Admin: 11/18/21 06:08 Dose: 1 applic Ascorbic Acid (Ascorbic Acid 500 Mg Tablet) 500 mg PO DAILY [facility] Stop: 11/15/22 08:59 Last Admin: 11/18/21 09:04 Dose: 500 mg Atorvastatin Calcium (Atorvastatin 10 Mg Tablet) 10 mg PO HS [facility] Stop: 11/14/22 21:59 Last Admin: 11/17/21 21:45 Dose: 10 mg Clopidogrel Bisulfate (Clopidogrel Bisulfate 75 Mg Tablet) 75 mg PO DAILY [facility] Stop: 11/15/22 08:59 Last Admin: 11/18/21 09:04 Dose: 75 mg Dextrose (Dextrose 50% In Water 25 Gm/50 Ml Syringe) 0 gm IV-PUSH PRN PRN PRN Reason: Hypoglycemia Stop: 11/14/22 17:37 Duloxetine HCl (Duloxetine 60 Mg Capsule.) 60 mg PO DAILY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 Medications Allergies and Active [...] 5,000 Unit/Ml Vial) 5,000 unit SUBCUT Q8HR [facility] Stop: 10/22/23 21:59 Last Admin: 10/23/22 07:01 Dose: 5,000 unit Aztreonam (Azactam) 2 gm in 100 mls @ 200 mls/hr IV Q8H [facility] Last Admin: 10/23/22 07:02 Dose: 200 mls/hr Ceftazidime/Avibactam 0.94 gm/ (Sodium Chloride) 100 mls @ 50 mls/hr IV Q12H [facility]; Protocol Stop: 10/22/23 22:29 Last Admin: 10/22/22 22:59 Dose: 50 mls/hr Insulin Aspart (Insulin Aspart 300 Units/3 Ml Insuln.Pen) 0 units SUBCUT ACHS [facility]; Protocol Stop: 10/23/23 07:29 Last Admin: 10/23/22 07:55 Dose: Not Given Insulin Glargine (Insulin Glargine 300 Units/3 Ml Insuln.Pen) 42 units SUBCUT DAILY [facility] Stop: 10/23/23 08:59 Last Admin: 10/23/22 09:54 Dose: 42 units Melatonin (Melatonin 5 Mg Tablet) 5 mg PO HS PRN PRN Reason: Insomnia Stop: 10/22/23 20:39 Nifedipine (Nifedipine Er.24hr 90 Mg Tab.Er.24) 90 mg PO DAILY JULIANN Stop: 10/23/23 08:59 Last Admin: 10/23/22 09:54 Dose: 90 mg Polyethylene Glycol (Polyethylene Glycol 3350 17 Gm Powd.Pack) 17 gm PO DAILY [facility] Stop: 10/23/23 08:59 Last Admin: 10/23/22 09:57 Dose: 17 gm Potassium Chloride (Potassium Chloride Er 20 Meq Tab.Er.Prt) 20 meq PO DAILY [facility] Stop: 10/23/23 08:59 Last Admin: 10/23/22 09:54 Dose: 20 meq Sodium Bicarbonate (Sodium Bicarbonate 650 Mg Tablet) 1,300 mg PO TID [facility] Stop: 10/22/23 21:59 Last Admin: 10/23/22 09:54 [...] (NA Multiplex Assay) - Final Stenotrophomonas maltophilia Paolameliton wood A&P - Infectious Disease (1) Infection [...] it is externally. He follows with in [place]. Compared to my previous evaluation of his right foot the right heel definitely looks better. We will still have a wound care evaluate for further recommendations on dressing changes as when I took off the dressing the dressing was still saturated. Patient denies systemic symptoms. Maintain Avycaz and will discuss with pharmacy regarding the amikacin need. Documented By: Riya Pitt MD 10/23/22 112 Signed By: <Electronically signed by MD Riya Pitt> 10/23/22 1144 [facility] Work Phone: Discharge summary Author Landon Grullon [facility] November 21, 2021 7:38pm Note Date/Time November 21, 2021 5: 27pm [facility] [address] [place] [address] Discharge Summary Signed Patient: Simon Lott MR#: [id number] : 1950 Acct:[id number] Age/Sex: 71 / M Adm Date: 2 Loc: Room: 8P3965-[address]: Landon Grullon MD Copies to: [...] to Urology Routine 11/21/21 08:41 Consult to LOG COOKER Routine Discharge Diagnosis (1) Type 2 diabetes [...] presented to the emergency department from his half-way facility with sepsis. Patient was also noted [...] plan to continue this course at his half-way facility. 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 Instructions: [facility] COVID-19 Discharge Instructions Prescriptions: New furosemide 40 [...] <Electronically signed by Landon Grullon MD> 11/21/21 193 [facility] Work Phone: Discharge summary Author Riya Sampson [facility] October 24, 2022 1:48pm Note Date/Time October 24, 2022 1:48 pm [facility] [address] [place] [address] Discharge Summary Signed Patient: Simon Lott MR#: [id number] : 1950 Acct:[id number] Age/Sex: 72 / M Adm Date: 3 Loc: Room: [address] [place] [address]: Riya Sampson DO Copies to: Mervat Santiago, HOUSEKEEPER CHILD CAREStefanieC Riya Sampson, ~ Providers Date of Discharge: 10/24/22 Discharging Provider: [...] % (Auto) N/A, Lymph % (Auto) N/A, Sullivan % (Auto) N/A, Eos % (Auto) N/A, Baso % (Auto) N/A, Nucleat RBC Rel Count N/A, Neut # (Auto) N/A, Lymph # (Auto) N/A, Sullivan # (Auto) N/A, Eos # (Auto) N/A, [...] MD [Active Staff] - 11/07/22 2:30 pm [facility],Services [Physician] - 10/31/22 11:00 am (Post hospital appointment. Please call to reschedule if needed.) Documented By: Riya Sampson DO 10/24/22 13 36 Signed By: <Electronically signed by Riya Sampson DO> 10/24/22 1348 [facility] Work Phone: Evaluation + Plan note No data available for this section [facility] Evaluation + Plan note Future Appointments Appointment Date:06/07/2022 08:15:00 AM Scheduled Provider:Kiko Corbett MD Location:[facility] Appointment Type:URO Office Visit Diagnostic Tests Pending * Basic Metabolic Panel 04/26/22 [facility] evaluation + Plan note Future Appointments Appointment Date:09/12/2022 11:15:00 AM Scheduled Provider:Kiko Corbett MD Location:[facility] Appointment Type:URO Office Visit [facility] evaluation + Plan note Future Appointments Appointment Date:09/13/2022 02:15:00 PM Scheduled Provider:Kiko Corbett MD Location:[facility] Appointment Type:URO Office Visit [facility] evaluation + Plan note Future Appointments Appointment Date:12/26/2023 03:00:00 PM Scheduled Provider:Kiko Corbett MD Location:[facility] Appointment Type:URO Office Visit [facility] evaluation noteNo [facility] [employer] Other evaluation note* Diagnosis Onset Date Resolution Status Acute hyperkalemia acute TOM (acute kidney injury) ac [place] Anemia acute Anemia in chronic kidney disease (CKD) acute Cellulitis and abscess of right leg acute CKD (chronic kidney disease) stage 3, GFR 30-59 ml/min acute CKD (chronic kidney disease) stage 4, GFR 15-29 ml/min acute COVID-19 acute High anion gap metabolic acidosis acute Hydronephrosis, left acute Hydroureteronephrosis acute Hyperkalemia acute [id number] acute Lab test positive for detection of COVID-19 virus acute Leukocytosis acute Osteomyelitis of foot acute PAD (peripheral artery disease) acute PVD (peripheral vascular disease) acute Sepsis acute Type 2 diabetes mellitus wit h diabetic chronic kidney disease acute Type 2 diabetes mellitus with foot ulcer acute Diabetic foot ulcer chronic Anemia acute [facility] Work Phone: Evaluation note* Diagnosis Onset Date Resolution Status Anemia acute [facility] Work Phone: Evaluation note* Diagnosis Hydronephrosis, unspecified hydronephrosis type- [facility] Diagnosis Onset Date Resolution Status Anemia acute Anemia acute Chronic kidney disease, stage V acute CKD (chronic kidney disease) stage 4, GFR 15-29 ml/min acute Diabetic foot ulcer chronic Hydroureteronephrosis acute [id number] acute Leukocytosis acute Metabolic acidosis acute Osteomyelitis acute PVD (peripheral vascular disease) acute Diabetic foot ulcer acute Infected wound acute Diabetes chronic [facility] Work Phone: Evaluation note* Diagnosis Onset Date Resolution Status Anemia acute Anemia acute Chronic kidney disease, stage V acute CKD (chronic kidney disease) stage 4, GFR 15-29 ml/min acute Diabetic foot ulcer chronic Hydroureteronephrosis acute [id number] acute Leukocytosis acute Metabolic acidosis acute Osteomyelitis acute PVD (peripheral vascular disease) acute Anemia acute Chronic kidney disease, stage V acute Diabetic foot ulcer chronic Hydroureteronephrosis acute Hyperkalemia acute [id number] acute Infected wound acute Metabolic acidosis acute Osteomyelitis of foot acute PAD (peripheral artery disease) acute Diabetes chronic [facility] Work Phone: evaluation note* Diagnosis Onset Date Resolution Status Anemia acute Chronic kidney disease, stage V acute CKD (chronic kidney disease) stage 4, GFR 15-29 ml/min acute Diabetic foot ulcer chronic Hydroureteronephrosis acute [id number] acute Leukocytosis acute Metabolic acidosis acute Osteomyelitis acute PVD (peripheral vascular disease) acute Anemia acute Chronic kidney disease, stage V acute Diabetic foot ulcer chronic Hydroureteronephrosis acute Hyperkalemia acute [id number] acute Infected wound acute Metabolic acidosis acute Osteomyelitis of foot acute PAD (peripheral artery disease) acute Diabetes chronic Anemia acute [facility] Work Phone: Evaluation note* Diagnosis Onset Date Resolution Status Anemia acute Chronic kidney disease, stage V acute CKD (chronic kidney disease) stage 4, GFR 15-29 ml/min acute Diabetic foot ulcer chronic Hydroureteronephrosis acute [id number] acute Leukocytosis acute Metabolic acidosis acute Osteomyelitis acute PVD (peripheral vascular disease) acute Anemia acute Chronic kidney disease, stage V acute Diabetic foot ulcer chronic Hydroureteronephrosis acute Hyperkalemia acute [id number] acute Infected wound acute Metabolic acidosis acute Osteomyelitis of foot acute PAD (peripheral artery disease) acute Diabetes chronic Anemia acute Anemia acute Bacteremia acute Diabetic foot ulcer acute [facility] Work Phone: Evaluation note* Diagnosis Onset Date Resolution Status Anemia acute Chronic kidney disease, stage V acute CKD (chronic kidney disease) stage 4, GFR 15-29 ml/min acute Diabetic foot ulcer chronic Hydroureteronephrosis acute [id number] acute Leukocytosis acute Metabolic acidosis acute Osteomyelitis acute PVD (peripheral vascular disease) acute Anemia acute Chronic kidney disease, stage V acute Diabetic foot ulcer chronic Hydroureteronephrosis acute Hyperkalemia acute [id number] acute Infected wound acute Metabolic acidosis acute Osteomyelitis of foot acute PAD (peripheral artery disease) acute Diabetes chronic Anemia acute Anemia acute Bacteremia acute Diabetic foot ulcer acute Infection due to Stenotrophomonas maltophilia acute Left against medical advice acute [facility] Work Phone: Evaluation note* Diagnosis Onset Date Resolution Status Anemia acute Chronic kidney disease, stage V acute CKD (chronic kidney disease) stage 4, GFR 15-29 ml/min acute Diabetic foot ulcer chronic Hydroureteronephrosis acute [id number] acute Leukocytosis acute Metabolic acidosis acute Osteomyelitis acute PVD (peripheral vascular disease) acute Anemia acute Chronic kidney disease, stage V acute Diabetic foot ulcer chronic Hydroureteronephrosis acute Hyperkalemia acute [id number] acute Infected wound acute Metabolic acidosis acute Osteomyelitis of foot acute PAD (peripheral artery disease) acute Diabetes chronic Anemia acute Bacteremia acute Diabetic foot ulcer acute Infection due to Stenotrophomonas maltophilia acute Anemia acute [facility] Work Phone: evaluation note* Diagnosis Onset Date Resolution Status Anemia acute Chronic kidney disease, stage V acute Diabetic foot ulcer chronic Hydroureteronephrosis acute Hyperkalemia acute [id number] acute Infected wound acute Metabolic acidosis acute Osteomyelitis of foot acute PAD (peripheral artery disease) acute Diabetes chronic Anemia acute Bacteremia acute Diabetic foot ulcer acute Infection due to Stenotrophomonas maltophilia acute Anemia acute [facility] Work Phone: evaluation note* Diagnosis Onset Date Resolution Status Anemia acute Bacteremia acute Diabetic foot ulcer acute Infection due to Stenotrophomonas maltophilia acute Anemia acute [facility] Work Phone: evaluation note* Diagnosis Onset Date Resolution Status Anemia acute Chronic renal insufficiency, stage IV (severe) acute [facility] Work Phone: evaluation note* Diagnosis Onset Date Resolution Status Chronic renal insufficiency, stage IV (severe) acute Anemia acute [facility] Work Phone: evaluation note* Diagnosis Onset Date Resolution Status Chronic renal insufficiency, stage IV (severe) acute Encounter regarding vascular access for dialysis for end-stage renal disease acute Hemodialysis access, AV graft acute Anemia acute [facility] Work Phone: evaluation note* Diagnosis Onset Date Resolution Status Chronic renal insufficiency, stage IV (severe) acute Encounter regarding vascular access for dialysis for end-stage renal disease acute Hemodialysis access, AV graft acute Anemia acute Anemia of renal disease acut e Chronic kidney disease, stage V acute Hydronephrosis acute Hyperkalemia acute [id number] [facility] Work Phone: evaluation note* Diagnosis Onset Date Resolution Status Encounter regarding vascular access for dialysis for end-stage renal disease acute Hemodialysis access, AV graft acute Anemia acute Anemia of renal disease acut e Chronic kidney disease, stage V acute Hydronephrosis acute Hyperkalemia acute [id number] [facility] Work Phone: evaluation note* Diagnosis Onset Date Resolution Status Encounter regarding vascular access for dialysis for end-stage renal disease acute Hemodialysis access, AV graft acute Anemia of renal disease acut e Chronic kidney disease, stage V acute Hydronephrosis acute Hyperkalemia acute [id number] acute Anemia acute [facility] Work Phone: evaluation note* Diagnosis Onset Date Resolution Status Encounter regarding vascular access for dialysis for end-stage renal disease acute Hemodialysis access, AV graft acute Anemia of renal disease acut e Chronic kidney disease, stage V acute Hydronephrosis acute Hyperkalemia acute [id number] acute Anemia acute Anemia acute Anemia of renal disease acut e Hemodialysis access, AV graft acute [facility] Work Phone: evaluation note* Diagnosis Onset Date Resolution Status Encounter regarding vascular access for dialysis for end-stage renal disease acute Hemodialysis access, AV graft acute Anemia of renal disease acut e Chronic kidney disease, stage V acute Hydronephrosis acute Hyperkalemia acute [id number] acute Anemia acute Anemia acute Anemia of renal disease acut e Hemodialysis access, AV graft acute AV fistula acute End-stage renal disease on hemodialysis [facility] Work Phone: evaluation note* Diagnosis Onset Date Resolution Status AV fistula acute End-stage renal disease on hemodialysis acute AV fistula acute End-stage renal disease on hemodialysis acute End-stage renal disease on hemodialysis acute PAD (peripheral artery disease) [facility] Work Phone: evaluation note* Diagnosis Onset Date Resolution Status AV fistula acute End-stage renal disease on hemodialysis acute End-stage renal disease on hemodialysis acute PAD (peripheral artery disease) [facility] Work Phone: evaluation note* Diagnosis Onset Date Resolution Status AV fistula acute End-stage renal disease on hemodialysis acute End-stage renal disease on hemodialysis acute PAD (peripheral artery disease) acute End-stage renal disease on hemodialysis acute Hemodialysis access, AV graft acute Wound of right foot acute [facility] Work Phone: evaluation note* Diagnosis Onset Date Resolution Status End-stage renal disease on hemodialysis acute PAD (peripheral artery disease) acute End-stage renal disease on hemodialysis acute Hemodialysis access, AV graft acute Wound of right foot acute End-stage renal disease on hemodialysis acute [facility] Work Phone: History and physical note Author Chris Mccarthy [facility] November 14, 2021 9:37pm Note Date/Time November 14, 2021 9: 16pm [facility] [address] [place] [address] Hospitalist H&P Signed Patient: Simon Lott MR#: [id number] : 1950 Acct:[id number] Age/Sex: 71 / M Adm Date: 2 Loc: Room: [address] [place] [address] Type: ADM IN Attending Dr: Chris Mccarthy DO Copies to: Maye Murray,DO Chris Mccarthy, DO~ HPI DATE OF EXAMINATION: 11/14/21 CHIEF COMPLAINT: sent from SNF for fever. Septic diabetic foot wound. HISTORY OF PRESENT ILLNESS: This is a 71-year-old man who was sent over from the half-way facility today due to fever. In the [...] feeling very sick. He describes that a lead miner was doing some debridement on the wounds [...] except as mentioned elsewhere in the documentation. [facility] Vaccinated for COVID-19?: Yes Medical History (Updated [...] % (Auto) 3.0 % (.) 11/14/21 13:00 Sullivan % (Auto) 4.0 % (.) 11/14/21 13:00 Eos % (Auto) N/A 11/14/21 13:00 Baso % (Auto) N/A 11/14/21 13:00 Neut # (Auto) N/A 11/14/21 13:00 Lymph # (Auto) N/A 11/14/21 13:00 Sullivan # (Auto) N/A 11/14/21 13:00 Eos # [...] pH 6.0 (5.0-9.0) 11/14/21 14:36 Ur Specific [place] 1.017 (1.001-1.030) 11/14/21 14:36 Urine Protein >=1000 [...] <Electronically signed by Chris Mccarthy DO> 11/14/212136 [facility] Work Phone: History and physical note Author Kevin Steinberg [facility] September 10, 2022 5:41pm Note Date/Time September 10, 2022 5:10p m [facility] [address] [place] [address] Hospitalist H&P Signed Patient: Simon Lott MR#: [id number] : 1950 Acct:[id number] Age/Sex: 72 / M Adm Date: 3 Loc: Room: [address] [place] [address] Type: ADM IN Attending Dr: Kevin Steinberg MD Copies to: MD Mervat Whipple, FELY-C~ HPI DATE OF EXAMINATION: 09/10/22 CHIEF COMPLAINT: [...] NONE X 7 MONTHS Social History Comments: [facility] Meds Medications and Allergies Allergies codeine Allergy [...] % (Auto) 42.1 % (.) 09/10/22 11:50 Sullivan % (Auto) 8.6 % (.) 09/10/22 11:50 Eos % (Auto) 3.5 % (.) 09/10/22 11:50 Baso % (Auto) 0.4 % (.) 09/10/22 11:50 Nucleat RBC Rel Count 0.1 /100 WBC (0-0.5) 09/10/22 11:50 Neut # (Auto) 5.5 x10E3/uL (1.8-7.7) 09/10/22 11:50 Lymph # (Auto) 5.1 x10E3/uL (1.00-4.8) H 09/10/22 11:50 Sullivan # (Auto) 1.0 x10E3/uL (0.0-0.8) H 09/10/22 [...] pH 6.0 (5.0-9.0) 09/10/22 15:00 Ur Specific [place] 1.012 (1.001-1.030) 09/10/22 15:00 Urine Protein 300 [...] <Electronically signed by Kevin Steinberg MD> 09/10/22 1748 [facility] Work Phone: History and physical note Author Riya Sampson [facility] October 22, 2022 9:37pm Note Date/Time October 22, 2022 9:37 pm [facility] [address] [place] [address] Hospitalist H&P Signed Patient: Simon Lott MR#: [id number] : 1950 Acct:[id number] Age/Sex: 72 / M Adm Date: 3 Loc: Room: [address] [place] [address] Type: ADM IN Attending Dr: Riya Sampson DO Copies to: Mervat Santiago NP-C Riya Sampson, ~ HPI DATE OF EXAMINATION: 10/22/22 CHIEF [...] in the ER and admitted to the [facility] floor for further management and treatment. Physical [...] negative unless noted below or in HPI [facility] Medical History Alcohol abuse Amputated toe of [...] NONE X 7 MONTHS Social History Comments: [facility] Meds Medications and Allergies Allergies codeine Allergy [...] 16:06 Lymph % (Auto) N/A 10/22/22 16:06 Sullivan % (Auto) N/A 10/22/22 16:06 Eos % (Auto) N/A 10/22/22 16:06 Baso % (Auto) N/A 10/22/22 16:06 Nucleat RBC Rel Count N/A 10/22/22 16:06 Neut # (Auto) N/A 10/22/22 16:06 Lymph # (Auto) N/A 10/22/22 16:06 Sullivan # (Auto) N/A 10/22/22 16:06 Eos # [...] <Electronically signed by Riya Sampson DO> 10/22/22 2137 [facility] Work Phone: History general Narrative - Reported* [...] Hospitalization History HEART ATTACK Hospitalization History [facility] [employer] Other History general Narrative - Reported* Type Description [...] Hospitalization History HEART ATTACK Hospitalization History [facility] [employer] Other [employer] general Narrative - Reported* Type Description Date [...] Hospitalization History HEART ATTACK Hospitalization History [facility] [place] [employer] [facility] general Narrative - Reported* Type Description Date [...] STROKE Hospitalization History POSITIVE BLOOD CULTURES 10/24/2022 [employer] Other History general Narrative - Reported* Type Description [...] History [ ] Surgical History foot surgery 1973 Surgical History [...] STROKE Hospitalization History POSITIVE BLOOD CULTURES 10/24/2022 [employer] Other [employer] general Narrative - Reported* Type Description Date [...] kidney and stent removal 08/2020 Surgical History FISTULA CREATION 2022 Hospitalization History See above Hospitalization History HEART ATTACK Hospitalization History STROKE Hospitalization History POSITIVE BLOOD CULTURES 10/24/2022 [employer] Other Hospital Discharge instructions No data available for this section [facility] Discharge instructions Additional Instructions DISCHARGE INSTRUCTIONS- [...] in how it sounds, feels, or looks! [facility] Work Phone: Progress note Author Deo Bernabe [facility] November 15, 2021 2:59pm Note Date/Time November 15, 2021 2: 59pm [facility] [address] [place] [address] Hospitalist Progress Note Signed Patient: Simon Lott MR#: [id number] : 1950 Acct:[id number] Age/Sex: 71 / M Adm Date: 2 Loc: 4 Room: [id number] Type: ADM IN Attending Dr: Deo Bernabe [...] mg 11/16/21 09:00 Duloxetine 60 Mg Capsule.Dr YIER 11/16/22 08:59 DAILY JULIANN Ferrous Sulfate 324 [...] Insuln.Pen SUBCUT 11/14/22 21:59 Not Given TID.WM.HS [facility] Protocol Insulin Detemir 42 units 11/15/21 09:00 [...] signed by Deo Bernabe DO> 11/15/21 1459 [facility] Work Phone: Progress note Author Deo Bernabe [facility] November 16, 2021 12:22pm Note Date/Time November 16, 2021 12 :21pm [facility] [address] [place] [address] Hospitalist Progress Note Signed Patient: Simon Lott MR#: [id number] : 1950 Acct:[id number] Age/Sex: 71 / M Adm Date: 2 Loc: 4 Room: [id number] Type: ADM IN Attending Dr: Deo Bernabe [...] Insuln.Pen SUBCUT 11/14/22 21:59 Not Given TID.WM.HS [facility] Protocol Insulin Detemir 42 units 11/15/21 09:00 [...] signed by Deo Bernabe, DO> 11/16/21 1222 [facility] Work Phone: Progress note Author Olga Lidia Martin [facility] November 16, 2021 3:24pm Note Date/Time November 16, 2021 12 :33pm [facility] [address] [place] [address] Nephrology Progress Note Signed Patient: Simon Lott MR#: [id number] : 1950 Acct:[id number] Age/Sex: 71 / M Adm Date: 2 Loc: Room: [address] [place] [address] Type: ADM IN Attending Dr: Deo Bernabe DO Copies to: ~ Date of Service: 11/16/2021 Subjective Subjective Narrative: This is a 71-year male with medical history of CKD, diabetes mellitus, hypertension, anemia, secondary hyperparathyroidism, alcoholic liver disease, PAD, diabetic foot ulcer, CVA, hepatitis C and nephrolithiasis was transferred from the long term due to the fever. 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 Musculoskeletal: No joint [...] 100 mls @ 200 mls/hr IV Q12H [facility] Last Admin: 11/16/21 05:42 Dose: 200 mls/hr Insulin Aspart (Insulin Aspart 300 Units/3 Ml Insuln.Pen) 0 units SUBCUT TID.WM.HS [facility]; Protocol Stop: 11/14/22 21:59 Last Admin: 11/16/21 11:43 Dose: Not Given Insulin Detemir (Insulin Detemir 300 Units/3 Ml Insuln.Pen) 42 units SUBCUT DAILY [facility] Stop: 11/15/22 08:59 Last Admin: 11/16/21 09:24 Dose: 42 units Losartan Potassium (Losartan 25 Mg Tablet) 25 mg PO DAILY [facility] Stop: 11/16/22 12:59 Loteprednol Etabonate (Loteprednol 0.5% Op Susp 100 Drops/5 Ml Bottle) 1 drops EYE-LEFT QID [facility] Stop: 11/14/22 17:59 Last Admin: 11/16/21 09:23 [...] 250 Mg Capsule) 250 mg PO BID.WITH.MEALS [facility] Stop: 11/15/22 07:59 Last Admin: 11/16/21 09:22 Dose: 250 mg Sodium Bicarbonate (Sodium Bicarbonate 650 Mg Tablet) 650 mg PO TID [facility] Stop: 11/15/22 13:59 Last Admin: 11/16/21 09:22 [...] Alla Phan M.D.11/15/2021 2:58 PM Dictation Location: [place] [address] Abdomen/Pelvis CT 11/15/21 08:00 IMPRESSION: BIBASILAR ATELECTASIS. LEFT NEPHROLITHIASIS. LEFT HYDRONEPHROSIS AND PROXIMAL HYDROURETER OF UNCERTAIN ETIOLOGY. URETERAL STRICTURE IS POSSIBLE GIVEN THE HISTORY OF URETERAL STONES AND STENT. SLIGHT URINARY BLADDER WALL THICKENING THOUGH THIS MAY RELATE TO INCOMPLETE DISTENTION. INCREASING INGUINAL AND PELVIC ADENOPATHY, GREATER ON THE RIGHT. SUBCUTANEOUS EDEMA. Impression dictated by: Alla Phan M.D.11/15/2021 1:18 PM Dictation Location: [place] [address] Any impression(s) listed above is documentation that [...] signed by Olga Lidia Martin MD> 11/16/21 0139 [facility] Work Phone: Progress note Author Julian Jones [facility] November 17, 2021 12:46pm Note Date/Time November 17, 2021 12 :46pm [facility] [address] [place] [address] Hospitalist Progress Note Signed Patient: Simon Lott MR#: [id number] : 1950 Acct:[id number] Age/Sex: 71 / M Adm Date: 2 Loc: Room: [address] [place] [address] Type: ADM IN Attending Dr: Julian Jones [...] Insuln.Pen SUBCUT 11/14/22 21:59 Not Given TID.WM.HS [facility] Protocol Insulin Detemir 42 units 11/15/21 09:00 [...] signed by Julian Jones MD> 11/17/21 1246 [facility] Work Phone: Progress note Author Olga Lidia Martin [facility] November 17, 2021 1:02pm Note Date/Time November 17, 2021 1: 02pm [facility] [address] [place] [address] Nephrology Progress Note Signed Patient: Simon Lott MR#: [id number] : 1950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 Hydroureteronephrosis Hyperkalemia [id number] Infected wound Metabolic acidosis Osteomyelitis of foot [...] GFR 15-29 ml/min Diabetic foot ulcer Hydroureteronephrosis [id number] Leukocytosis Metabolic acidosis Osteomyelitis PVD (peripheral vascular disease) Anemia Chronic kidney disease, stage V Diabetic foot ulcer Hydroureteronephrosis Hyperkalemia [id number] Infected wound Metabolic acidosis Osteomyelitis of foot [...] stage V Diabetic foot ulcer Hydroureteronephrosis Hyperkalemia [id number] Infected wound Metabolic acidosis Osteomyelitis of foot [...] stage V Diabetic foot ulcer Hydroureteronephrosis Hyperkalemia [id number] Infected wound Metabolic acidosis Osteomyelitis of foot [...] Anemia Chronic renal insufficiency, stage IV (severe) Chief Complaint Renal 2 Month Follow Up n184 To Go Over Vmap From 03/04/2023 e55.9 N18.9 D63.1 ESRD N18.4 ESRD Renal 2 Month Follow Up n18.9 d63.1 Anemia.. Reason for Visit Chronic renal insuff iciency, stage IV (severe) Anemia Chief Complaint n184 To Go Over Vmap From 03/04/2023 e55.9 N18.9 D63.1 ESRD N18.4 ESRD Renal 2 Month Follow Up n18.9 d63.1 Needs Stitches Removed n18.9 d63.1 Anemia.. Anemia Reason for Visit Chronic renal insuff iciency, stage IV (severe) Anemia Chief Complaint ESRD N18.4 ESRD Renal 2 Month Follow Up n18.9 d63.1 Needs Stitches Removed n18.9 d63.1 Anemia Anemia Anemia.. Reason for Visit Chronic renal insuff iciency, stage IV (severe) Anemia Chief Complaint ESRD N18.4 ESRD Renal 2 Month Follow Up n18.9 d63.1 Needs Stitches Removed n18.9 d63.1 Anemia Anemia Anemia.. GFS LT ARM Reason for Visit Chronic renal insuff iciency, stage IV (severe) Anemia Chief Complaint ESRD N18.4 ESRD Renal 2 Month Follow Up n18.9 d63.1 Needs Stitches Removed n18.9 d63.1 Anemia Anemia E11.9 Z12.5 GFS LT ARM Anemia.. n18.6 Reason for Visit Chronic renal insuff iciency, stage IV (severe) Encounter regarding vascular access for dialysis for end-stage renal disease Hemodialysis access, AV graft Anemia Chief Complaint N18.4 ESRD Renal 2 Month Follow Up n18.9 d63.1 Needs Stitches Removed n18.9 d63.1 Anemia Anemia E11.9 Z12.5 GFS LT ARM n18.6 ESRD Anemia.. Reason for Visit Chronic renal insuff iciency, stage IV (severe) Encounter regarding vascular access for dialysis for end-stage renal disease Hemodialysis access, AV graft Anemia Chief Complaint ESRD Renal 2 Month Follow Up n18.9 d63.1 Needs Stitches Removed n18.9 d63.1 Anemia Anemia E11.9 Z12.5 GFS LT ARM n18.6 ESRD Anemia.. RENAL F/U Reason for Visit Chronic renal insuff iciency, stage IV (severe) Encounter regarding vascular access for dialysis for end-stage renal disease Hemodialysis access, AV graft Anemia Anemia of renal disease Chronic kidney disease, stage V Hydronephrosis Hyperkalemia [id number] Chief Complaint n18.9 d63.1 Needs Stitches Removed n18.9 d63.1 Anemia Anemia E11.9 Z12.5 GFS LT ARM ESRD Anemia.. RENAL F/U Reason for Visit Encounter regarding vascular access for dialysis for end-stage renal disease Hemodialysis access, AV graft Anemia Anemia of renal disease Chronic kidney disease, stage V Hydronephrosis Hyperkalemia [id number] Chief Complaint Needs Stitches Remov ed n18.9 d63.1 Anemia Anemia E11.9 Z12.5 GFS LT ARM ESRD RENAL F/U D64.9 N18.30 D63.1 Anemia.. To go over Fistulogram results Reason for Visit Encounter regarding vascular access for dialysis for end-stage renal disease Hemodialysis access, AV graft Anemia of renal disease Chronic kidney disease, stage V Hydronephrosis Hyperkalemia [id number] Anemia Chief Complaint Needs Stitches Remov ed n18.9 d63.1 Anemia Anemia E11.9 Z12.5 GFS LT ARM ESRD ESRD RENAL F/U D64.9 N18.30 D63.1 Anemia.. To go over Fistulogram results Reason for Visit Encounter regarding vascular access for dialysis for end-stage renal disease Hemodialysis access, AV graft Anemia of renal disease Chronic kidney disease, stage V Hydronephrosis Hyperkalemia [id number] Anemia Chief Complaint Needs Stitches Remov ed n18.9 d63.1 Anemia Anemia E11.9 Z12.5 GFS LT ARM ESRD ESRD RENAL F/U D64.9 N18.30 D63.1 Anemia.. To go over Fistulogram results STARTED ACCESS ARM AND IS SWELLING Reason for Visit Encounter regarding vascular access for dialysis for end-stage renal disease Hemodialysis access, AV graft Anemia of renal disease Chronic kidney disease, stage V Hydronephrosis Hyperkalemia [id number] Anemia Anemia Anemia of renal disease Hemodialysis access, AV graft Chief Complaint Needs Stitches Remov ed n18.9 d63.1 Anemia Anemia E11.9 Z12.5 GFS LT ARM ESRD ESRD RENAL F/U D64.9 N18.30 D63.1 Anemia.. To go over Fistulogram results STARTED ACCESS ARM AND IS SWELLING ESRD Reason for Visit Encounter regarding vascular access for dialysis for end-stage renal disease Hemodialysis access, AV graft Anemia of renal disease Chronic kidney disease, stage V Hydronephrosis Hyperkalemia [id number] Anemia Anemia Anemia of renal disease Hemodialysis access, AV graft AV fistula End-stage renal disease on hemodialysis Chief Complaint Anemia Anemia E11.9 Z12.5 GFS LT ARM ESRD ESRD RENAL F/U D64.9 N18.30 D63.1 Anemia.. To go over Fistulogram results STARTED ACCESS ARM AND IS SWELLING ESRD Reason for Visit Encounter regarding vascular access for dialysis for end-stage renal disease Hemodialysis access, AV graft Anemia of renal disease Chronic kidney disease, stage V Hydronephrosis Hyperkalemia [id number] Anemia Anemia Anemia of renal disease Hemodialysis access, AV graft AV fistula End-stage renal disease on hemodialysis Chief Complaint E11.9 Z12.5 GFS LT ARM ESRD ESRD RENAL F/U D64.9 N18.30 D63.1 Anemia.. To go over Fistulogram results STARTED ACCESS ARM AND IS SWELLING ESRD E87.6 ESRD RE CHECK FISTULA TO START USING AGAIN Reason for Visit Encounter regarding vascular access for dialysis for end-stage renal disease Hemodialysis access, AV graft Anemia of renal disease Chronic kidney disease, stage V Hydronephrosis Hyperkalemia [id number] Anemia Anemia Anemia of renal disease Hemodialysis access, AV graft AV fistula End-stage renal disease on hemodialysis Chief Complaint STARTED ACCESS ARM A ND IS SWELLING ESRD E87.6 ESRD RE CHECK FISTULA TO START USING AGAIN MAY D/C HD CATH; ABN GILDA'S Reason for Visit AV fistula End-stage renal disease on hemodialysis AV fistula End-stage renal disease on hemodialysis End-stage renal disease on hemodialysis PAD (peripheral artery disease) Chief Complaint STARTED ACCESS ARM A ND IS SWELLING ESRD E87.6 ESRD RE CHECK FISTULA TO START USING AGAIN MAY D/C HD CATH; ABN GILDA'S ESRD, PVD w/ Non Healing Wound ESRD, PVD w/ Non Healing Wound Reason for Visit AV fistula End-stage renal disease on hemodialysis AV fistula End-stage renal disease on hemodialysis End-stage renal disease on hemodialysis PAD (peripheral artery disease) Chief Complaint ESRD RE CHECK FISTULA TO START USING AGAIN MAY D/C HD CATH; ABN GILDA'S ESRD, PVD w/ Non Healing Wound ESRD, PVD w/ Non Healing Wound E87.5 Reason for Visit AV fistula End-stage renal disease on hemodialysis End-stage renal disease on hemodialysis PAD (peripheral artery disease) Chief Complaint ESRD RE CHECK FISTULA TO START USING AGAIN AUGUST D/C HD CATH; ABN GILDA'S ESRD, PVD w/ Non Healing Wound ESRD, PVD w/ Non Healing Wound E87.5 2 WK SURGERY F/U Reason for Visit AV fistula End-stage renal disease on hemodialysis End-stage renal disease on hemodialysis PAD (peripheral artery disease) Chief Complaint ESRD RE CHECK FISTULA TO START USING AGAIN AUGUST D/C HD CATH; ABN GILDA'S ESRD, PVD w/ Non Healing Wound ESRD, PVD w/ Non Healing Wound E87.5 2 WK SURGERY F/U 3 WK WOUND CHECK/D/C HD CATH Reason for Visit AV fistula End-stage renal disease on hemodialysis End-stage renal disease on hemodialysis PAD (peripheral artery disease) End-stage renal disease on hemodialysis Hemodialysis access, AV graft Wound of right foot Chief Complaint AUGUST D/C HD CATH; ABN GILDA'S ESRD, PVD w/ Non Healing Wound ESRD, PVD w/ Non Healing Wound E87.5 2 WK SURGERY F/U 3 WK WOUND CHECK/D/C HD CATH e87.6 Reason for Visit End-stage renal dise ase on hemodialysis PAD (peripheral artery disease) End-stage renal disease on hemodialysis Hemodialysis access, AV graft Wound of right foot End-stage renal disease on hemodialysis Chief Complaint AUGUST D/C HD CATH; ABN GILDA'S ESRD, PVD w/ Non Healing Wound ESRD, PVD w/ Non Healing Wound E87.5 2 WK SURGERY F/U 3 WK WOUND CHECK/D/C HD CATH e87.6 E11.9 E55.9 Reason for Visit End-stage renal dise ase on hemodialysis PAD (peripheral artery disease) End-stage renal disease on hemodialysis Hemodialysis access, AV graft Wound of right foot End-stage renal disease on hemodialysis Family History Relationship Condition Age at Onset [...] Diabetes mellitus Unknown brother Diabetes mellitus Unknown Relationship Condition Age at Onset Recorded Date/T rd Not Specified Diabetes mellitus Unknown Hypertension Unknown Disorder of kidney Unknown father Diabetes mellitus Unknown sister Diabetes mellitus Unknown brother Diabetes mellitus Unknown daughter Family history of mental disorder Unknown Heart disease Unknown Unknown Not Specified Hypertension Unknown Diabetes mellitus Unknown Relationship Condition Age at Onset Recorded Date/T rd mother Diabetes mellitus Unknown Hypertension Unknown Disorder of kidney Unknown father Diabetes mellitus Unknown sister Diabetes mellitus Unknown brother Diabetes mellitus Unknown daughter Family history of mental disorder Unknown Heart disease Unknown Unknown mother Hypertension Unknown Diabetes mellitus Unknown Advance Directives Advance Directive Response Recorded Date/ Time Advance Directives No December 9:45am Advance Directive Response Recorded Date/ Time Advance Directives No December 8:45am Reason for Referral Reason AVF creation Diagnosis 1 CKD (chronic kidney disease) stage 4, GFR 15-29 ml/min (N18.4) Diagnosis 2 AV fistula (I77.0) Referral Organization [facility] Referring Provider First Name Johan Referring Provider Last Name Claudia Referring Provider Specialty Nephrology Referred Organization [facility] Referred Provider Fawad Rocha Referred Address [address] [place] [address],[place], [place],[address] Referred Provider Specialty Vascular Marcie gregory Referral Priority Routine General Notes Mary Jo Bean 02/13/2023 03:01:07 PM > VEIN MAPPING ORDER FAXED TO [facility] SCHED Reason Left hydronephrosis Diagnosis 1 CKD (chronic kidney disease) stage 4, GFR 15-29 ml/min (N18.4) Referral Organization [facility] Nephrology Referring Provider First Name Johan Referring Provider Last Name Claudia Referring Provider Specialty Nephrology Referred Organization [facility] Referred Provider KIKO CORBETT Referred Address [address],[place], [place],[address] Referred Provider Specialty Urology Referral Priority Routine [...] y tube placement Reason Onset Date Comments Flexible Shaft Winder - ED Follow Up 07/17/2022 Reason Onset Date Comments Returning Patient's Call 07/24/2022 Reason Comments tube removal Care Teams (unrecognized sec tion and content) Team Status: Active Member Role Status Dates Mervat Santiago NP-C Primary Care Provider Active Team Status: Inactive Member Role Status Dates PHYSICIAN NO FAMILY Primary Care Provider Active Start: October 21, 2023 End: October 21, 2023 Fawad Rocha MD Attending Provider Active S tart: October 21, 2023 End: October 21, 2023 Team Status: Inactive Member Role Status Dates PHYSICIAN NO FAMILY Primary Care Provider Active Start: October 28, 2023 End: October 28, 2023 Fawad Rocha MD Attending Provider Active S tart: October 28, 2023 End: October 28, 2023 Team Status: Active Member Role Status Dates PHYSICIAN NO FAMILY Primary Care Provider Active Start: October 28, 2023 Fawad Rocha MD Attending Provider, Other Provide r Active Start: October 28, 2023 Team Status: Active Member Role Status Dates PHYSICIAN NO FAMILY Primary Care Provider Active Start: October 29, 2023 Johan Taylor MD Attending Provider Active Star t: October 29, 2023 Team Status: Inactive Member Role Status Dates PHYSICIAN NO FAMILY Primary Care Provider Active Start: November 07, 2023 End: November 07, 2023 Yisel Andrade MD Attending Provider Active Star t: November 07, 2023 End: November 07, 2023 Team Status: Inactive Member Role Status Dates PHYSICIAN NO FAMILY Primary Care Provider Active Start: November 11, 2023 End: November 11, 2023 Jailene Castorena [facility]-C Attending Provider Active Start: November 11, 2023 End: November 11, 2023 Team Status: Active Member Role Status Dates PHYSICIAN NO FAMILY Primary Care Provider Active Start: December 01, 2023 Olga Lidia Martin MD Attending Provider Active Start : December 01, 2023 Team Status: Inactive Member Role Status Dates PHYSICIAN NO FAMILY Primary Care Provider Active Start: December 02, 2023 End: December 02, 2023 Fawad Rocha MD Attending Provider Active S tart: December 02, 2023 End: December 02, 2023 Team Status: Inactive Member Role Status Dates Olga Lidia Martin MD Attending Provider Active Start : December 26, 2023 End: December 26, 2023 Team Status: Inactive Member Role Status Dates Mervat Santiago NP-C Primary Care Provi tonya, Attending Provider Active Start: December 30, 2023 End: December 30, 2023 Team Status: Active Member Role Status Dates PHYSICIAN NO FAMILY Primary Care Provider Active Team Status: Active Member Role Status Dates PHYSICIAN NO FAMILY Primary Care Provider Active Start: July 30, 2023 Olga Lidia Martin MD Attending Provider Active Start : July 30, 2023 Team Status: Inactive Member Role Status Dates PHYSICIAN NO FAMILY Primary Care Provider Active Start: August 05, 2023 End: August 05, 2023 Fawad Rocha MD Attending Provider Active S tart: August 05, 2023 End: August 05, 2023 Team Status: Inactive Member Role Status Dates PHYSICIAN NO FAMILY Primary Care Provider Active Start: August 05, 2023 End: August 05, 2023 Master Mauricio MD Attending Provider Active Start: August 05, 2023 End: August 05, 2023 Team Status: Inactive Member Role Status Dates Olga Lidia Martin MD Attending Provider Active Start : August 08, 2023 End: August 08, 2023 PHYSICIAN NO FAMILY Primary Care Provider Active Start: August 08, 2023 End: August 08, 2023 Team Status: Active Member Role Status Dates PHYSICIAN NO FAMILY Primary Care Provider Active Start: September 01, 2023 Johan Taylor MD Attending Provider Active Star t: September 01, 2023 Team Status: Active Member Role Status Dates PHYSICIAN NO FAMILY Primary Care Provider Active Start: September 05, 2023 Master Mauricio MD Attending Prov ider, Other Provider Active Start: September 05, 2023 Team Status: Inactive Member Role Status Dates PHYSICIAN NO FAMILY Primary Care Provider Active Start: September 09, 2023 End: September 09, 2023 Fawad Rocha MD Attending Provider Active S tart: September 09, 2023 End: September 09, 2023 Team Status: Inactive Member Role Status Dates PHYSICIAN NO FAMILY Primary Care Provider Active Start: October 21, 2023 End: October 21, 2023 Fawad Rocha MD Attending Provider Active S tart: October 21, 2023 End: October 21, 2023 Team Status: Active Member Role Status Dates NON STAFF Primary Care Provider Active Team Status: Active Member Role Status Dates Mervat Santiago , [facility]-C Primary Care Provider, Referring Provider Active Pito Miguel MD Active Jose M Landry II, DO Attending Provider Active Team Status: Inactive Member Role Status Services [facility] Primary Care Provider Ac tive Jose M Landry II, DO Attending Provider Active Team Status: Inactive Member Role Status Dates Johan Taylor MD Attending Provider Active NON STAFF Primary Care Provider Active Team Status: Inactive Member Role Status Dates Jose M Landry II, DO Attending Provider Active Team Status: Inactive Member Role Status Dates Mervat Santiago , [facility]SEKEE[facility] CH[facility] C[employer]-C Attending Provider Active Services [facility] Primary Care Provider Ac tive Team Status: Inactive Member Role Status Dates Services [facility] Primary Care Provider Ac tive Mervat Santiago , HOUSEKEE[employer] CHILD C[employer]-C Attending Provider Active Team Status: Inactive Member Role Status Dates Maddie Dixon , TYSON Attending Provider Acti ve Team Status: Inactive Member Role Status Dates Johan Taylor MD Attending Provider Active Team Status: Active Member Role Status Dates Maye Murray , DO Primary Care Provider Active Team Status: Inactive Member Role Status Dates Maye Murray , DO Primary Care Provider Active Kiko Corbett MD Attending Provider Active Team Status: Inactive Member Role Status Maye Murray , DO Primary Care Provider, Attending Hilda stroud Active Team Status: Inactive Member Role Status Dates Maye Bunting , DO Primary Care Provider Active Ramakrishna [...] MD Other Provider Active Delores Turpin , REHABILITATION CONSTRUCTION SPECIALIST Other Provider Active Jessica Lua , REHABILITATION CONSTRUCTION SPECIALIST Other Provider Active Fawad Rocha MD Other Provider Active Jailene Castorena NP-C Other Provider Active Raimundo Gandhi MD Other Provider Active Master Mauricio MD Other Provider Active Bhakti Ochoa DPM Other Provider Active Landon Grullon MD Attending Provider Active Kiko Corbett MD Other Provider Active Team Status: Inactive Member Role Status Dates [facility] Primary Care Provider Ac tive Bhakti Ochoa , DPM Attending Provider Active Team Status: Inactive Member Role Status Dates Maye Murray , DO Primary Care Provider Active Renata Wyatt MD Attending Provider Active Kasey Heller , DO Referring Provider Active Pathology Collector Relationship Specialty Start Date End Date Bunting, Maye Ray, DO [address] [place] [address] PCP - [facility] Medicine 05/06/22 Team Status: Inactive Member Role Status Dates Mayejennifer Murray , DO Primary Care Provider Active Sonal Márquez Jr, MD Emergency Provider Active Pathology Collector Relationship Specialty Start Date End Date Bunting, Maye Ray, DO [address] [place] [address] PCP - [facility] Medicine 05/06/22 Pathology Collector Relationship Specialty Start Date End Date Bunting, Maye Ray, DO [address] [place] [address] PCP - General Family Medicine 05/06/22 Team Status: Active Member Role Status Dates Mervat E Spasic , HOUSEKEEPER CHILD CARE-C Primary Care Provider Active Team Status: Active Member Role Status Dates Mervat Santiago , HOUSEKEEPER CHILD CARE-C Primary Care Provider Active Serafin Pearson DO Emergency Provider Active Kevin Steinberg MD Admit Provider, Attending Provider A jonathan Taylor MD Other Provider Active Fawad Rocha MD Other Provider Active Team Status: Inactive Member Role Status Amparo Murray DO Primary Care Provider Active Mervat Santiago , HOUSEKEE[employer] CHILD CARE-C Attending Provider Active Team Status: Inactive Member Role Status Dates Mervat Santiago , HOUSEKEEPER CHILD CARE-C Primary Care Provider Active Srinivas Aguilar DO Emergency Provider Active Team Status: Inactive Member Role Status Dates Mervat Santiago , HOUSEKEE[employer] CHILD CARE-C Primary Care Provider Active Iris Dwyer APRN Emergency Provider Active Landon Grullon MD Admit Provider Active Riya Pitt MD Other Provider Active Yisel Andrade MD Other Provider Active Bhakti Ochoa DPM Other Provider Active Julian Jones MD Attending Provider Active Sj Barron MD Other Provider Active Pathology Collector Relationship Specialty Start Date End Date Maye Murray, DO [address] [place] [address] PCP - General Family Medicine 05/06/22 Team Status: Inactive Member Role Status Dates Mervat Santiago , HOUSEKEE[employer] CHILD C[employer]-C Primary Care Provider Active Serafin Pearson DO Emergency Provider Active Kevin Steinberg MD Admit Provider, Attending Provider A ctjordin Pitt MD Other Provider Active Jhoan Taylor MD Other Provider Active Vincenzo Gomez DPM Other Provider Active Fawad Rocha MD Other Provider Active Team Status: Inactive Member Role Status Dates Mervat Santiago , HOUSEKEE[employer] CHILD CARE-C Primary Care Provider Active Riya Pitt MD Attending Provider Active Team Status: Inactive Member Role Status Dates Mervat Santiago , HOUSEKEEPER CHILD CARE-C Primary Care Provider, Attending Provider Active Team Status: Inactive Member Role Status Dates Mervat Santiago , HOUSEKEEPER CHILD CARE-C Primary Care Provider Active Pedro Drake MD Emergency Provider Active Team Status: Inactive Member Role Status Dates Mervat Santiago , HOUSEKEEPER CHILD CARE-C Primary Care Provider Active TRINIDAD Longo-C Emergency Provider Active Team Status: Active Member Role Status Dates Mervat Santiago , HOUSEKEEPER CHILD CARE-C Primary Care Provider Active Singh Kessler PA-C Emergency Provider Active Riya Sampson DO Admit Provider, Attending Provider Active Team Status: Inactive Member Role Status Dates Mervat Santiago , HOUSEKEE[employer] CHILD CARE-C Primary Care Provider Active TRINIDAD Longo-Aura Emergency Provider Active Riya Sampson DO Admit Provider, Attending Provider Active Riya Pitt MD Other Provider Active Team Status: Inactive Member Role Status Dates Mervat Santiago , HOUSEKEE[employer] CHILD CARE-C Primary Care Provider Active Jose M Landry II, DO Attending Provider Active Team Status: Inactive Member Role Status Dates Mervat Santiago , HOUSEKEEPER CHILD CARE-C Attending Provider Active Team Status: Active Member Role Status Dates [facility] Primary Care Provider Ac tive Team Status: Inactive Member Role Status Dates Fawad Rocha MD Attending Provider Active Mervat Santiago , HOUSEKEEPER CHILD CARE-C Primary Care Provider Active Team Status: Inactive Member Role Status Dates Mervat Santiago , HOUSEKEEPER CHILD CARE-C Primary Care Provider Active Johan Taylor MD Attending Provider Active Team Status: Inactive Member Role Status Dates Johan Taylor MD Attending Provider Active Star t: February 13, 2023 End: February 13, 2023 Team Status: Inactive Member Role Status Amparo Taylor MD Attending Provider Active Star t: March 04, 2023 End: March 04, 2023 NON STAFF Primary Care Provider Active Start: March 04, 2023 End: March 04, 2023 Team Status: Inactive Member Role Status Dates Fawad Rocha MD Attending Provider Active S tart: March 11, 2023 End: March 11, 2023 Team Status: Inactive Member Role Status Dates Mervat Santiago HOUSEKEEPER CHILD CARE-C Attending Provider Active Start: March 13, 2023 End: March 13, 2023 Team Status: Inactive Member Role Status Dates Jose M Landry II, Attending Provider Active Start: March 19, 2023 End: March 19, 2023 Team Status: Inactive Member Role Status Dates Fawad Rocha MD Attending Provider Active S tart: April 02, 2023 End: April 02, 2023 Mervat Santiago , HOUSEKEEPER CHILD CARE-C Primary Care Provider Active Start: April 02, 2023 End: April 02, 2023 Team Status: Inactive Member Role Status Dates Mervat Santiago , HOUSEKEEPER CHILD CARE-C Primary Care Provider Active Start: April 07, 2023 End: April 07, 2023 Johan Taylor MD Attending Provider Active Star t: April 07, 2023 End: April 07, 2023 Team Status: Inactive Member Role Status Dates Fawad Rocha MD Attending Provider Active S tart: April 16, 2023 End: April 16, 2023 Mervat Santiago , HOUSEKEEPER CHILD CARE-C Primary Care Provider Active Start: April 16, 2023 End: April 16, 2023 Team Status: Inactive Member Role Status Dates Johan Taylor MD Attending Provider Active Star t: April 17, 2023 End: April 17, 2023 Team Status: Inactive Member Role Status Dates Jose M Landry II, DO Attending Provider Active Start: April 22, 2023 End: April 22, 2023 Team Status: Active Member Role Status Dates Mervat Santiago , HOUSEKEEPER CHILD CARE-C Primary Care Provi tonya, Referring Provider Active Start: April 28, 2023 Pito Miguel MD Active Start: [facility] 2023 Jose M Landry II, DO Attending Provider Active Start: April 28, 2023 Team Status: Inactive Member Role Status Dates Jose M Landry II, DO Attending Provider Active Start: May 08, 2023 End: May 08, 2023 Team Status: Inactive Member Role Status Dates Master Mauricio MD Attending Provider Active Start: May 08, 2023 End: May 08, 2023 Team Status: Active Member Role Status Dates Mervat Santiago HOUSEKEE[employer] CHILD CARE-C Referring Provider Active Start: May 13, 2023 Jose M Landry II, DO Attending Provider Active Start: May 13, 2023 Services [facility] Primary Care Provider Active Start: May 13, 2023 Team Status: Inactive Member Role Status Dates Jose M Landry II, DO Attending Provider Active Start: May 22, 2023 End: May 22, 2023 Team Status: Active Member Role Status Dates [facility] Primary Care Provider Active Team Status: Inactive Member Role Status Dates Jose M Landry II, DO Attending Provider Active Start: June 05, 2023 End: June 05, 2023 Team Status: Active Member Role Status Dates Mervat Santiago HOUSEKEE[employer] CHILD CARE-C Referring Provider Active Start: June 09, 2023 Jose M Landry II, DO Attending Provider Active Start: June 09, 2023 [facility] Primary Care Provider Active Start: June 09, 2023 Team Status: Inactive Member Role Status Dates [facility] Primary Care Provider Active Start: June 19, 2023 End: June 19, 2023 AGUSTINA QuigleyC Attending Provider Active Start: June 19, 2023 End: June 19, 2023 Team Status: Inactive Member Role Status Dates Fawad Rocha MD Attending Provider Active S tart: June 24, 2023 End: June 24, 2023 Services [facility] Primary Care Provider Active Start: June 24, 2023 End: June 24, 2023 Team Status: Active Member Role Status Dates Mervat Santiago NP-C Referring Provider Active Start: June 24, 2023 Jose M Landry II, DO Attending Provider Active Start: June 24, 2023 [facility] Primary Care Provider Active Start: June 24, 2023 Team Status: Inactive Member Role Status Dates [facility] Primary Care Provider Active Start: June 24, 2023 End: June 24, 2023 Fawad Rocha MD Attending Provider Active S tart: June 24, 2023 End: June 24, 2023 Team Status: Inactive Member Role Status Dates [facility] Primary Care Provider Active Start: July 03, 2023 End: July 03, 2023 Fawad Rocha MD Attending Provider Active S tart: July 03, 2023 End: July 03, 2023 Team Status: Active Member Role Status Dates Mervat Santiago NP-C Referring Provider Active Start: July 03, 2023 Jose M Landry II, DO Attending Provider Active Start: July 03, 2023 Services [facility] Primary Care Provider Active Start: July 03, 2023 Team Status: Active Member Role Status Dates Mervat Santiago NP-C Referring Provider Active Start: July 07, 2023 Jose M Landry II, DO Attending Provider Active Start: July 07, 2023 Services [facility] Primary Care Provider Active Start: July 07, 2023 Team Status: Inactive Member Role Status Dates [facility] Primary Care Provider Active Start: July 10, 2023 End: July 10, 2023 Johan Taylor MD Attending Provider Active Star t: July 10, 2023 End: July 10, 2023 Team Status: Inactive Member Role Status Dates Olga Lidia Mratin MD Attending Provider Active Start : July 15, 2023 End: July 15, 2023 Team Status: Inactive Member Role Status Dates Olga Lidia Martin MD Attending Provider Active Start : July 15, 2023 End: July 15, 2023 [facility] Primary Care Provider Active Start: July 15, 2023 End: July 15, 2023 Team Status: Active Member Role Status Dates Mervat Santiago NP-C Referring Provider Active Start: July 22, 2023 Jose M Landry II DO Attending Provider Active Start: July 22, 2023 [facility] Primary Care Provider Active Start: July 22, 2023 Team Status: Inactive Member Role Status Dates Maddie Dixon APRN Attending Provider Acti ve Start: July 22, 2023 End: July 22, 2023 [facility] Primary Care Provider Active Start: July 22, 2023 End: July 22, 2023 Team Status: Active Member Role Status Dates Fawad Rocha MD Attending Provider Active S tart: July 22, 2023 [facility] Primary Care Provider Active Start: July 22, 2023 Team Status: Active Member Role Status Dates [facility] Primary Care Provider Active Start: July 03, 2023 Fawad Rocha MD Attending Provider, Other Provider Active Start: July 03, 2023 Team Status: Inactive Member Role Status Dates Fawad Rocha MD Attending Provider Active S tart: July 22, 2023 End: July 22, 2023 [facility] Primary Care Provider Active Start: July 22, 2023 End: July 22, 2023 Team Status: Inactive Member Role Status Dates Olga Lidia Martin MD Attending Provider Active Start : August 08, 2023 End: August 08, 2023 Team Status: Active Member Role Status Dates [facility] Primary Care Provider Active Start: September 29, 2023 Olga Lidia Martin MD Attending Provider Active Start : September 29, 2023 Team Status: Inactive Member Role Status Dates [facility] Primary Care Provider Active Start: October 28, 2023 End: October 28, 2023 Fawad Rocha MD Attending Provider Active S tart: October 28, 2023 End: October 28, 2023 Team Status: Active Member Role Status Dates [facility] Primary Care Provider Active Start: October 28, 2023 Fawad Rocha MD Attending Provider, Other Provide r Active Start: October 28, 2023 Team Status: Inactive Member Role Status Dates [facility] Primary Care Provider Active Start: November 07, 2023 End: November 07, 2023 Yisel Andrade MD Attending Provider Active Star t: November 07, 2023 End: November 07, 2023 Team Status: Inactive Member Role Status Dates [facility] Primary Care Provider Active Start: November 11, 2023 End: November 11, 2023 AGUSTINA KearneyC Attending Provider Active Start: November 11, 2023 End: November 11, 2023 Team Status: Active Member Role Status Dates [facility] Primary Care Provider Active Start: October 29, 2023 Johan Taylor MD Attending Provider Active Star t: October 29, 2023 Team Status: Inactive Member Role Status Dates [facility] Primary Care Provider Active Start: December 02, 2023 End: December 02, 2023 Fawad Rocha MD Attending Provider Active S tart: December 02, 2023 End: December 02, 2023 Team Status: Active Member Role Status Dates [facility] Primary Care Provider Active Start: December 01, 2023 Olga Lidia Martin MD Attending Provider Active Start : December 01, 2023 Team Status: Inactive Member Role Status Dates Olga Lidia Martin MD Attending Provider Active Start : December 26, 2023 End: December 26, 2023 Team Status: Inactive Member Role Status Dates Mervat Santiago NP-C Primary Care Trishai tonya, Attending Provider Active Start: December 30, 2023 End: December 30, 2023 (unrecognized sect ion and content) No Status Records FoundNo Status Records FoundNo Status Records FoundNo Status Records FoundNo Status Records FoundNo Status Records FoundNo Status Records FoundNo Status Records Found INFORMATION SOURCE (unrecogn ized section and content) DATE CREATED AUTHOR 02/22/2022 [employer] DATE CREATED AUTHOR AUTHOR'S ORGANIZ ATION 08/18/2022 [facility] DATE CREATED AUTHOR AUTHOR'S ORGANIZ ATION 08/31/2022 [facility] DATE CREATED AUTHOR AUTHOR'S ORGANIZ ATION 09/17/2022 [facility] DATE CREATED AUTHOR AUTHOR'S ORGANIZ ATION 09/23/2022 [facility] DATE CREATED AUTHOR AUTHOR'S ORGANIZ ATION 10/19/2022 [facility] DATE CREATED AUTHOR AUTHOR'S ORGANIZ ATION 02/14/2023 [facility] DATE CREATED AUTHOR AUTHOR'S ORGANIZ ATION 12/29/2023 [facility] Source Comments (unrecognize d section and content) In the event this informatio n is protected by the Federal Confidentiality of Alcohol and Drug Abuse Patient Records regulations: The Federal rules restrict any use of the information to criminally investigate or prosecute any alcohol or drug abuse patient.[facility] the event this information is protected by the Federal Confidentiality of Alcohol and Drug Abuse Patient Records regulations: The Federal rules restrict any use of the information to criminally investigate or prosecute any alcohol or drug abuse patient.[facility] the event this information is protected by the Federal Confidentiality of Alcohol and Drug Abuse Patient Records regulations: The Federal rules restrict any use of the information to criminally investigate or prosecute any alcohol or drug abuse patient.[facility] the event this information is protected by the Federal Confidentiality of Alcohol and Drug Abuse Patient Records regulations: The Federal rules restrict any use of the information to criminally investigate or prosecute any alcohol or drug abuse patient.[facility] the event this information is protected by the Federal Confidentiality of Alcohol and Drug Abuse Patient Records regulations: The Federal rules restrict any use of the information to criminally investigate or prosecute any alcohol or drug abuse patient.[facility] the event this information is protected by the Federal Confidentiality of Alcohol and Drug Abuse Patient Records regulations: The Federal rules restrict any use of the information to criminally investigate or prosecute any alcohol or drug abuse patient.[facility] the event this information is protected by the Federal Confidentiality of Alcohol and Drug Abuse Patient Records regulations: The Federal rules restrict any use of the information to criminally investigate or prosecute any alcohol or drug abuse patient.[facility] Goals (unrecognized section and content) Goals may be documented in a n alternate section FOR RECORDS PERTAINING TO PATIENTS WHO ARE [...] BE BASED ON THE PRIMARY CLINICAL RECORDS. [facility] [employer] [facility]. provides no warranty or guarantee of the accuracy or completeness of information in this document.
[2024-01-22 06:55] LABS: Glucometer 225 mg/dL (74-106)
[2024-01-22 06:58] LABS: Hematocrit 35.7 % (42.0-54.0); Hemoglobin 11.7 g/dL (14.0-18.0); Mean Corpuscular HGB Conc 32.8 g/dL (29.9-35.2); Mean Corpuscular Hemoglobin 32.1 pg (25.9-34.0); Mean Corpuscular Volume 98.1 fL (80.0-94.0); Mean Platelet Volume 10.3 fL (9.5-13.5); Platelet Count 216 10^3/uL (150-450); Red Blood Count 3.64 10^6/uL (4.70-6.10); Red Cell Distribution Width 17.2 % (11.0-15.0); White Blood Count 13.7 10^3/uL (4.0-11.0)
[2024-01-22 07:09] LABS: Anion Gap 16.9; BUN Creatinine Ratio 4.8; Calcium 8.9 mg/dL (8.5-10.1); Carbon Dioxide 26.2 mmol/L (21.0-32.0); Chloride 95 mmol/L (98-107); Estimated GFR (African America 12 (>=60 mL/min/1.73m^2); Estimated GFR (Non-African Ame 9 (>=60 mL/min/1.73m^2); Glucose 248 mg/dL (74-106); Potassium 4.1 mmol/L (3.5-5.1); Sodium 134 mmol/L (136-145)
[2024-01-22] MEDS: 0.9 % SODIUM CHLORIDE 500 ML 50 ML IV (07:13)
[2024-01-22 07:45] LABS: Anisocytosis 1+; Eosinophils Absolute Manual 0.41 10^3/uL (0.00-0.70)
[2024-01-22 07:46] LABS: Macrocytosis 1+
[2024-01-22 07:47] LABS: Lymphocytes Absolute Manual 7.53 10^3/uL (1.20-3.80); Monocytes Absolute Manual 0.95 10^3/uL (0.30-0.80); Segmented Neut Absolute Manual 4.79 10^3/uL (1.4-6.5)
[2024-01-22] MEDS: CEFAZOLIN SODIUM 1 GM/50 ML D5W PREMIX IV (07:49)
--- NOTE | 2024-01-22 09:07 | PM.ORONB ---
Brief Operative Note Date of procedure: 01/22/24 Pre-op diagnosis general: Right diabetic foot ulcer, skin lesion Post-op diagnosis: same as pre-op Procedure: Procedure performed: Debridement of diabetic foot ulcer down to muscle, fat and fascia right foot 33cm2 in total; biopsy of skin lesion & ulcer Indications for procedure: Patient is a 73-year-old male with multiple medical comorbidities including end-stage kidney disease, type 2 diabetes, PAD, CVA and is wheelchair-bound who has been seen in our wound center for well over a year for multiple recurrent ulcerations on his right foot. Most recently he has had 3 wounds on his plantar foot which despite local wound care have not progressed. Unfortunately insurance has not approved allogenic skin substitutes or other advanced modalities. Given his lack of progress I recommended surgical debridement with biopsy of the associated tissue. I discussed the potential risks and benefits and the patient agreed to undergo the above procedure Intraoperative findings: 3 wounds located on the plantar right foot with malodor, maceration, significant hyperkeratosis and atypical periwound skin changes. All wounds were full-thickness and including fat, fascia down to muscle. No bone exposure. No acute signs of infection. Preoperative wound measurements: Distal: 3.3 x 1.5 x 0.5 cm Central: 0.8 x 0.5 x 0.5 cm Proximal (heel): 4.0 x 3.5 x 0.4 cm Procedure in detail: Patient was identified in preoperative holding by myself which time correct side and site were marked and consent was obtained. Patient is brought back to the operating theater placed on table in supine position and preoperative antibiotics were started. IV sedation was administered and the right lower extremity was prepped and draped in usual sterile fashion. Formal timeout was performed. Utilizing a 15 blade and 10 blade the wounds were initially sharply debrided excising periwound hyperkeratosis noting atypical skin changes throughout the plantar foot extending onto the medial hindfoot. A specimen of these atypical skin changes was sent to pathology. The wounds were further debrided down to and including fat fascia and muscle utilizing a Versajet to 100% healthy granular bed. A clean scalpel was used to then obtain a portion of the wound bed from the distal ulcer which was also sent to pathology. No evidence of acute infection. Then the hemostasis was controlled on the field with a temporary pressure dressing. Then Adaptic and Betadine soaked gauze was placed over the wounds and a bulky dry sterile dressing was applied. Patient tolerated the procedure and anesthesia well was transferred to the recovery room with vital signs stable. Postoperative plan: Discharge home under family's care Nonweightbearing right foot Dressing changes as scheduled by home health Patient to follow-up in the wound center in roughly 1 week Anesthesia: ROD Surgeon: Jhonny Myles Estimated blood loss (mL): 25 Pathology: other (skin lesion; ulcer) Condition: stable Disposition: PACU
[2024-01-22] MEDS: LACTATED RINGER'S SOLUTION 1,000 ML 50 ML IV (09:14)
[2024-01-22 09:27] LABS: Glucometer 207 mg/dL (74-106)
--- NOTE | 2024-01-22 14:51 | PC.NURSE ---
1430- Patient resting in wheelchair watching TV. No c/o voiced at present time. Encouraged patient to keep right foot elevated.
== END 2024-01-22 16:30 | disposition home or self-care (01) ==
PROVIDERS: Anesthesiology; Visit Provider Podiatrist Foot & Ankle Surgery
PROC: (CPT 11043; principal; 2024-01-22 07:30)
DX: E11.621 Type 2 diabetes mellitus with foot ulcer (principal); L97.415 Non-pressure chronic ulcer of right heel and midfoot with muscle involvement without evidence of necrosis; E11.22 Type 2 diabetes mellitus with diabetic chronic kidney disease; N18.6 End stage renal disease; E11.51 Type 2 diabetes mellitus with diabetic peripheral angiopathy without gangrene; Z79.4 Long term (current) use of insulin; I12.0 Hypertensive chronic kidney disease with stage 5 chronic kidney disease or end stage renal disease; I25.10 Atherosclerotic heart disease of native coronary artery without angina pectoris; I25.2 Old myocardial infarction; F17.200 Nicotine dependence, unspecified, uncomplicated; I69.951 Hemiplegia and hemiparesis following unspecified cerebrovascular disease affecting right dominant side; Z99.2 Dependence on renal dialysis
CPT/HCPCS: 11043; 36415; 80048; 82948; 85007; 85027; J0690; J2250; J2704; J3010

== ENCOUNTER 2024-02-03 15:54 | Outpatient (OUT) | payer MEDICARE, MEDICAID, SELFPAY | END 2024-02-03 15:55 | disposition home or self-care (01) | LOC: WC 15:54 | PROVIDERS: Visit Provider Physician Assistant | DX: E11.621 Type 2 diabetes mellitus with foot ulcer (principal); L97.411 Non-pressure chronic ulcer of right heel and midfoot limited to breakdown of skin; L89.613 Pressure ulcer of right heel, stage 3 | CPT/HCPCS: 11042 ==

== ENCOUNTER 2024-02-17 14:56 | Outpatient (OUT) | payer MEDICARE, MEDICAID, SELFPAY | END 2024-02-17 14:57 | disposition home or self-care (01) | LOC: WC 14:56 | PROVIDERS: Visit Provider Physician Assistant | DX: L89.613 Pressure ulcer of right heel, stage 3 (principal) | CPT/HCPCS: G0463 ==

== ENCOUNTER 2024-03-02 09:59 | Outpatient (OUT) | payer MEDICARE, MEDICAID, SELFPAY | END 2024-03-02 10:00 | disposition home or self-care (01) | LOC: WC 09:59 | PROVIDERS: Visit Provider Physician Assistant | DX: L89.613 Pressure ulcer of right heel, stage 3 (principal); E11.621 Type 2 diabetes mellitus with foot ulcer; L97.411 Non-pressure chronic ulcer of right heel and midfoot limited to breakdown of skin | CPT/HCPCS: G0463 ==

== ENCOUNTER 2024-03-23 10:03 | Outpatient (OUT) | payer MEDICARE, MEDICAID, SELFPAY | END 2024-03-23 10:04 | disposition home or self-care (01) | LOC: WC 10:04 | PROVIDERS: Visit Provider Physician Assistant | DX: L89.613 Pressure ulcer of right heel, stage 3 (principal); E11.621 Type 2 diabetes mellitus with foot ulcer; L97.411 Non-pressure chronic ulcer of right heel and midfoot limited to breakdown of skin | CPT/HCPCS: 11043; 11046; 29580 ==

== ENCOUNTER 2024-04-20 16:14 | Outpatient (OUT) | payer MEDICARE, MEDICAID, SELFPAY | END 2024-04-20 16:15 | disposition home or self-care (01) | LOC: WC 16:14 | PROVIDERS: Visit Provider Physician Assistant | DX: L89.613 Pressure ulcer of right heel, stage 3 (principal); E11.621 Type 2 diabetes mellitus with foot ulcer; L97.411 Non-pressure chronic ulcer of right heel and midfoot limited to breakdown of skin | CPT/HCPCS: 11043; 11046; 29580 ==

== ENCOUNTER 2024-05-11 14:34 | Outpatient (OUT) | payer MEDICARE, MEDICAID, SELFPAY | END 2024-05-11 14:35 | disposition home or self-care (01) | LOC: WC 14:34 | PROVIDERS: Visit Provider Physician Assistant | DX: L89.613 Pressure ulcer of right heel, stage 3 (principal); E11.621 Type 2 diabetes mellitus with foot ulcer; L97.411 Non-pressure chronic ulcer of right heel and midfoot limited to breakdown of skin | CPT/HCPCS: 11043; 29580 ==

== ENCOUNTER 2024-05-20 12:58 | Outpatient (OUT) | payer MEDICARE, MEDICAID, SELFPAY | END 2024-05-20 12:59 | disposition home or self-care (01) | LOC: WC 12:59 | PROVIDERS: Visit Provider Physician Assistant | DX: L89.613 Pressure ulcer of right heel, stage 3 (principal); E11.621 Type 2 diabetes mellitus with foot ulcer; L97.411 Non-pressure chronic ulcer of right heel and midfoot limited to breakdown of skin | CPT/HCPCS: 11043; 29580 ==

== ENCOUNTER 2024-06-01 10:33 | Outpatient (OUT) | payer MEDICARE, MEDICAID, SELFPAY | END 2024-06-01 10:34 | disposition home or self-care (01) | LOC: WC 10:33 | PROVIDERS: Visit Provider Physician Assistant | DX: E11.621 Type 2 diabetes mellitus with foot ulcer (principal); L97.412 Non-pressure chronic ulcer of right heel and midfoot with fat layer exposed; L89.613 Pressure ulcer of right heel, stage 3; L97.422 Non-pressure chronic ulcer of left heel and midfoot with fat layer exposed | CPT/HCPCS: 11043; 11046; 29580 ==

== ENCOUNTER 2024-06-29 13:43 | Outpatient (OUT) | payer MEDICARE, MEDICAID, SELFPAY | END 2024-06-29 13:44 | disposition home or self-care (01) | LOC: WC 13:43 | PROVIDERS: Visit Provider Physician Assistant | DX: L89.613 Pressure ulcer of right heel, stage 3 (principal); E11.621 Type 2 diabetes mellitus with foot ulcer; L97.422 Non-pressure chronic ulcer of left heel and midfoot with fat layer exposed; L97.412 Non-pressure chronic ulcer of right heel and midfoot with fat layer exposed | CPT/HCPCS: 11043; 11046; 29580 ==

== ENCOUNTER 2024-08-03 09:00 | Outpatient (OUT) | payer MEDICARE, MEDICAID, SELFPAY | END 2024-08-03 09:01 | disposition home or self-care (01) | LOC: WC 08-05 09:07 | PROVIDERS: Visit Provider Physician Assistant | DX: L89.613 Pressure ulcer of right heel, stage 3 (principal); E11.621 Type 2 diabetes mellitus with foot ulcer; L97.412 Non-pressure chronic ulcer of right heel and midfoot with fat layer exposed; L97.422 Non-pressure chronic ulcer of left heel and midfoot with fat layer exposed; L89.623 Pressure ulcer of left heel, stage 3; L89.893 Pressure ulcer of other site, stage 3 | CPT/HCPCS: 11043; 29580; 88304 ==

== ENCOUNTER 2024-08-03 15:08 | Outpatient (REF) | payer MEDICARE, MEDICAID, SELFPAY | END 2024-08-03 15:09 | disposition home or self-care (01) | LOC: LAB 15:08 | PROVIDERS: Visit Provider Physician Assistant | DX: L89.613 Pressure ulcer of right heel, stage 3 (principal); E11.621 Type 2 diabetes mellitus with foot ulcer; L97.412 Non-pressure chronic ulcer of right heel and midfoot with fat layer exposed | CPT/HCPCS: 88304 ==

== ENCOUNTER 2024-09-02 13:36 | Outpatient (OUT) | payer MEDICARE, MEDICAID, SELFPAY ==
--- OUTSIDE RECORDS SUMMARY | 2012-07-22 10:40 | XMS_ITS | Continuity of Care Document ---
Demographics Address Unknown Address [address] [place] [address] Home Phone Preferred Language en Marital Status Unknown Druze Affiliation Unknown Race Black or Domonique rican Ethnic Group Unknown Author Organization [facility] Address [address] [place] [address] Phone Care Team Providers Care Heating Worker Name Role Phone Brigitte BERMEOTico Unavailable Unavailable Procedures Procedure Date TB INTRADERMAL TEST TB INTRADERMAL TEST Advance Directives Directive Yes / No Effective Date File Name Resuscitation Not Answered N/A N/A Life Support Not Answered N/A N/A Intubation Not Answered N/A N/A Antibiotics Not Answered N/A N/A IV Fluid Support Not Answered N/A N/A Tube Feed Not Answered N/A N/A Other Directive N/A N/A WARNING:The information contained in this section is historical and is provided for information only and does not constitute a legal document or any assurance that the information is still accurate. Please verify the information with the avina of the legal document before using it for clinical purposes. Encounters Encounter Description Practice Location Reason(s) For Visit Diagnoses Date Provider Providers Copied on Encounter [facility], [address] [place] [address], [id number], tel:[phone] [facility] No Information Brigitte Ridley. [address] [place], [place], [id number], [place]. tel:[phone] [facility], [address] [place] [address], [id number], [place] tel:[phone] [facility] No Information Brigitte GHOSH Tico. [address] [place], [place], [id number], [place]. tel:[phone] [facility], [address] [place] [address], [id number], [place] tel:[phone] [facility] Screening examination for pulmonary tuberculosis Brigitte Ridley. [address] [place] [address], [id number], . tel:[phone] Family History Family Member Type Diagnosis Age At Onset No Information Payers Payer name Insurance type Covered republican ID Authoriza tion(s) No Information Social History Type Description Quantity Date Captured Comments Alcohol Use Details Unknown Caffeine Use Details Unknown Tobacco Use Status No Information Smoking Status No Information Sex Male Chief Complaint And Reason For Visit No Information Reason For Referral Reason For Referral No Information History Of Present Illness Encounter Date Complaint History Of Prese nt Illness No Information Functional Status Date Functional Assessmen t No Information Instructions Date Instruction Additional Infor mation No Information Assessments Type Assessment Date No Information Patient Care Teams Name Effective Dates (start - stop) Status Members No Information
--- OUTSIDE RECORDS SUMMARY | 2024-07-01 07:30 | XMS_ITS ---
Author Organization [facility] Servic es Address [address] [place] [address] Care Team Providers Care Park Superintendent Name Role Phone Mervat Santiago Primary Care Provider [phone] REASON FOR VISIT Check Chronic/Med refills Encounters Encounter Location Date Provider Diagnosis [facility] [address] [place] [address] 07/01/2024 Mervat Santiago Plan Of Treatment Next Appt Details Provider Name:Mervat Santiago, 10/07/2024 11:00:00 AM, [address], [place], [address], Progress Notes * KATE SIMON EDOB:1949 (74 yo M)Acc No.[id number]:07/01/2024 Progress Notes Patient: SIMON MCCLELLAND Appointment Provider: Francisco Javier Santiago NP :1950 A ge:74 Y S ex:Male Date:07/01/2024 Address:[address], [place], [place] Subjective: * Chief Complaints: * 1 . Check Chronic/Med refills. * Medical History: Objective: * Vitals: Assessment: Plan: * Treatment: * Images: * Electronic signature of Samson Santiago CNP on 09/02/2024 at 01:38 PM EDT Sign off status: Pending * Appointment Provider: Francisco Javier Santiago NP Date: 0 07/01/2024 Generated for Jeaneth pyle/Jacob/Patti on: 0 09/02/2024 01:38 PM EDT
--- OUTSIDE RECORDS SUMMARY | 2024-09-02 13:40 | XMS_ITS | Encounter Summary ---
Author Organization [facility] [place] Address [facility] [place] [address] Care Team Providers Care Electronics Mechanic Name Role Phone Anton Mcgee DO Primary Care Provider [phone] Source Comments In the event this information is protected by the Federal Confidentiality of Alcohol and Drug AbusePatient Records regulations: The Federal rules restrict any use of the information to criminally investigate or prosecute any alcohol or drug abuse patient.[facility] Encounter Details Date Type Department Care Team (Late st Contact Info) Description 10/17/2022 Lab Requisition [facility] Hospital Laboratory [facility] [place] [address] Pedro Drake MD [address] [place] [address] Social History Tobacco Use Types Packs/Day Years Used Date Smoking Tobacco: Every Day Cigarettes Smokeless Tobacco: Never Alcohol Use Standard Drinks/Week Comments Yes 0 (1 standard drink = 0.6 oz pure alcohol) couldn't get pain med's so I drink a lot PHQ-2 Answer Date Recorded PHQ-2 score 0 07/13/2018 Area Deprivation Index Answer Date Neel rded National Score (1-100), lower number is lower ri sk 95 05/21/2022 State Score (1-10), lower number is lower risk N ot on file 05/21/2022 Data from: https://www.neighborhoodatlas.[facility]/. Last address used for calculation [address] 05/21/2022 Sex and Gender Information Value Date Recorded Sex Assigned at Not on file Legal Sex Male 4:11 PM EDT Gender Identity Not on file Sexual Orientation Not on file Occupation Industry Job Start Date Job End Date disabled Not on file Not on file Not on file documented as of this encounter Functional Status * Are you deaf or do you have serious difficulty hearing? Answer Date of Assessment Author No 07/18/2022 7:50 PM EDT Gi Sandoval RN * Are you blind or do you have serious difficulty seeing, even when wearing glasses? Answer Date of Assessment Author No 07/18/2022 7:50 PM EDT Gi Sandoval RN * Do you have serious difficulty walking or climbing stairs? Answer Date of Assessment Author Yes 07/18/2022 7:50 PM EDT Gi Sandoval RN * Do you have difficulty dressing or bathing? Answer Date of Assessment Author No 07/18/2022 7:50 PM EDT Gi Sandoval RN * Because of a physical, mental, or emotional condition, do you have difficulty doing errands alone such as visiting a doctor's office or shopping? Answer Date of Assessment Author Yes 07/18/2022 7:50 PM EDT Gi Sandoval RN documented as of this encounter Mental Status * Because of a physical, mental, or emotional condition, do you have serious difficulty concentrating, remembering, or making decisions? 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 Micro Specimen CULTURE PLATE / Unknown 10/13/2022 9:52 AM EDT 10/17/2022 5:23 AM EDT Narrative Organism Antibiotic Method Susceptibility Chryseobacterium gleum Cefepime MINIMUM I NHIBITORY CONCENTRATION (VIZION) <=2: Susceptible Chryseobacterium gleum Meropenem MINIMUM I NHIBITORY CONCENTRATION (VIZION) >8: Resistant Chryseobacterium gleum Piperacillin/Tazobac MINI MUM INHIBITORY CONCENTRATION (VIZION) 32: Intermediate Chryseobacterium gleum Gentamicin MINIMUM I NHIBITORY CONCENTRATION (VIZION) >8: Resistant Chryseobacterium gleum Tobramycin MINIMUM I NHIBITORY CONCENTRATION (VIZION) >8: Resistant Chryseobacterium gleum Amikacin MINIMUM I NHIBITORY CONCENTRATION (VIZION) >32: Resistant Chryseobacterium gleum Trimeth sulfameth MINIMUM INHIBITORY CONCENTRATION (VIZION) <=1: Susceptible Chryseobacterium gleum Ciprofloxacin MINIMUM I NHIBITORY CONCENTRATION (VIZION) 0.50: Susceptible us Pedro Drake MD LABORATORY Final Result [facility] [address] [address], documented in this encounter Visit Diagnoses Not on filedocumented in this encounter Care Teams Electronics Mechanic Relationship Specialty Start Date End Date Anton Mcgee DO [address] [place] [address] PCP - General Family Medicine 05/06/22 documented as of this encounter
--- OUTSIDE RECORDS SUMMARY | 2024-09-02 13:40 | XMS_ITS | Patient Health Record ---
Author Organization [facility] Address [facility] [place] [address] Care Team Providers Care Windscreen Fitter Name Role Phone Vincenzo Gomez Unavailable [phone] Reason For Referral No Information Plan Of Treatment No Information Insurance Providers Payer Name Payer Address Payer Phone Subscriber Number Group Number Insured Name Patient Relationship to Insured Coverage Start Date Coverage End Date Medicare Part B [id number] [facility] [place] [address] [id number] Lonny Delgado Self - patient is the insured Medicaid [place] [employer] [address] [place] [address] [id number] Lonny Delgado Self - patient is the insured
--- OUTSIDE RECORDS SUMMARY | 2024-09-02 13:40 | XMS_ITS | Clinical Summary ---
Author Organization [employer] [facility] Address [facility] [address] [place] [address] Care Team Providers Care Stile Ripsaw Operator Name Role Phone Katlin Castellanos PA-C Primary Care Provider [phone] Social History Tobacco Use Types Packs/Day Years Used Date Smoking Tobacco: Never Assessed Sex and Gender Information Value Date Recorded Sex Assigned at Not on file Legal Sex Male 3:19 PM EDT Gender Identity Not on file Sexual Orientation Not on file Plan of Treatment Health Maintenance Due Date Last Done Comments Depression Screening 1962 Tobacco Screening 1962 Adult BMI Screening 1968 DTaP,Tdap and Td Vaccines (1 - Tdap) 1969 Zoster (Shingles) Vaccine (1 of 2) 2000 Fall Risk Screening 2015 Influenza Vaccine 12/06/2024 Medical Devices Not on file Insurance MEDICAID [place] Care Teams Stile Ripsaw Operator Relationship Specialty Start Date End Date Katlin Castellanos PA-C [address], [place] [address] PCP - General Physician Medical Superintendent 07/22/23
--- OUTSIDE RECORDS SUMMARY | 2024-09-02 13:40 | XMS_ITS | Clinical Summary ---
Author Organization [facility] Address [address] [place] [address] Care Team Providers Care [place] Tower Loader Name Role Phone Unavailable Primary Care Provider Unavailabl e Social History Tobacco Use Types Packs/Day Years Used Date Smoking Tobacco: Never Assessed Sex and Gender Information Value Date Recorded Sex Assigned at Not on file Legal Sex Male 6:54 PM EDT Gender Identity Not on file Sexual Orientation Not on file Plan of Treatment Not on file Insurance [facility] MEDICARE ADVANTAGE MEDICAID [place]
--- OUTSIDE RECORDS SUMMARY | 2024-09-02 13:41 | XMS_ITS ---
Author Organization [facility] Care Team Providers Care Pattern Drafter Name Role Phone MATT, IH VIK Unavailable Unavailable Allergies and adverse reactions No Known Allergies Care Team Name Role Address Phone Organization Dates IH VIK MATT [address] [facility], [place], [address], [place] States (Office): : [facility] 02/11/2011 - 06/03/2011 Mental Status Section Date Assessment Total Score Description 06/03/2011 BIMS 15 cognitively int act PHQ-9 00 05/17/2011 BIMS 15 cognitively int act PHQ-9 00 Reason for Referral No Reasons for Referral Entered Social History Social History Observation Description Start Date End Date Code Code System Current Smoking Status Tobacco smoking consumption unknown [id number] SNOMED CT Sex Assigned At Male 1950 [address]-5 [facility] Gender Identity
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
--- OUTSIDE RECORDS SUMMARY | 2024-09-02 13:41 | XMS_ITS | Clinical Summary ---
Author Organization [facility] Address [facility] [place] [address] Care Team Providers Care Material Handler Floorperson Name Role Phone Anton Mcgee DO Primary Care Provider [phone] Allergies Active Allergy Reactions Criticality Noted Date Comments Codeine GI Upset 07/13/2015 Lisinopril Swelling High 07/17/2022 Medications GABAPENTIN (NEURONTIN ORAL) Take 1 tablet by mouth three times daily. Active MULTIVITAMIN (MULTIPLE VITAMIN ORAL) Take 1 tablet by mouth once daily. Active DULoxetine (CYMBALTA) 60 mg capsule Take 60 mg by mouth once daily. Active bisacodyl (DULCOLAX) 10 mg supp 10 mg by RECTAL route once daily as needed. Active ferrous sulfate 325 mg (65 mg iron) tablet Take 325 mg by mouth daily with breakfast. Active furosemide (LASIX) 40 mg tablet Take 40 mg by mouth twice daily. Active ammonium lactate (LAC-HYDRIN) 12 % cream Apply to affected area as needed. Active INSULIN DETEMIR (LEVEMIR FLEXPEN SUBCUTANEOUS) Inject subcutaneousl y. Active magnesium hydroxide (MOM) 400 mg/5 mL suspension Take by mouth once daily as needed. Active insulin aspart U-100 (NOVOLOG) 100 unit/mL Inject subcutaneousl y. As directed Active POTASSIUM ORAL Take by mouth. Active aluminum-magnes ium hydroxide-simet hicone (MAALOX,MYLANTA ,MAG-AL PLUS) 200-200-20 mg/5 mL suspension Take by mouth every 6 hours as needed. Active acarbose (PRECOSE) 100 mg tablet Take 100 mg by mouth three times daily with meals. Active amitriptyline (ELAVIL) 25 mg tablet Take 10 mg by mouth daily at bedtime. Active aspirin, enteric coated (ASPIRIN, ENTERIC COATED) 81 mg EC tablet Take 81 mg by mouth once daily. Active atorvastatin (LIPITOR) 40 mg tablet Take 40 mg by mouth once daily. Active VITAMIN B COMPLEX (B-COMPLEX ORAL) Take by mouth. Active PSEUDOEPHEDRINE /ACETAMINOPHEN (CEPACOL SORE THROAT ORAL) Take by mouth. Active tamsulosin ER (FLOMAX) 0.4 mg cp24 Take 0.4 mg by mouth. Active acetaminophen (TYLENOL) 325 mg tablet Take 650 mg by mouth every 6 hours as needed. Active LIRAGLUTIDE (VICTOZA 2-LEO SUBCUTANEOUS) Inject subcutaneousl y. As directed Active CALCIUM CARBONATE/VITAM IN D3 (VITAMIN D-3 ORAL) Take by mouth. Active sulfamethoxazol e-trimethoprim (BACTRIM DS,SEPTRA DS) 800-160 mg per tablet Take by mouth twice daily. Active ondansetron (ZOFRAN) 4 mg tablet Take 4 mg by mouth every 8 hours as needed. Active doxycycline hyclate (VIBRAMYCIN) 100 mg capsule 0 07/02/2018 Acti ve amoxicillin (POLYMOX, AMOXIL) 500 mg capsule take 1 capsule by mouth every 8 hours for 7 days 0 07/02/2018 Active ascorbic acid-bioflavono ids 500-500 mg cap Take by mouth once daily. Active folic acid 1 mg tablet Take 1 mg by mouth once daily. Active NIFEdipine ER (PROCARDIA XL) 30 mg 24 hr tablet Take 30 mg by mouth once daily. Active clopidogrel (PLAVIX) 75 mg tablet Take 1 tablet by mouth once daily. 07/18/2022 Active Active Problems Problem Noted Date Diagnosed Date Nicotine use disorder, F17.2 07/18/2022 Hematuria 07/18/2022 Gross hematuria 07/17/2022 BPH with urinary obstruction 07/17/2022 Gastroparesis 07/17/2022 Gastroesophageal reflux disease without esophagi tis 07/17/2022 Hyperkalemia 07/17/2022 Hydroureteronephrosis 11/14/2021 Diabetes mellitus without complication 2 Coronary artery disease 07/24/2021 Venous insufficiency (chronic) (peripheral) 03/09 Mixed hyperlipidemia 07/18/2017 Leukocytosis 03/25/2017 Anemia 03/25/2017 Stage 4 chronic kidney disease (HCC) 03/25/2017 Resolved Problems Problem Noted Date Diagnosed Date Resolved Date APPOINTMENT CANCELLED 07/13/20152015 Family History Medical History Relation Comments Diabetes Father Hypertension Father Diabetes Mother Hypertension Mother Relation Status Comments Father Mother Social History Tobacco Use Types Packs/Day Years [...] N ot on file 05/21/2022 Data from: https://www.neighborhoodatlas.medicine.[facility]/. Last address used for calculation [address] [facility] 05/21/2022 Sex and Gender Information Value Date Recorded Sex Assigned at Not on file Legal Sex Male 4:11 PM EDT Gender Identity Not on file Sexual Orientation Not on file Occupation Industry Job Start Date Job End Date disabled Not on file Not on file Not on file Last Filed Vital Signs Vital Sign Reading Time Taken Comments Blood Pressure 159/77 07/18/2022 2:29 PM EDT Pulse 94 07/18/2022 2:29 PM EDT Temperature 37 C (98.6 F) 07/18/2022 11:46 AM EDT Respiratory Rate 16 07/18/2022 11:46 AM EDT Oxygen Saturation 94% 07/18/2022 11:46 AM EDT Inhaled Oxygen Concentration - - Weight 104 kg (229 lb 4.5 oz) 07/17/2022 6:41 PM EDT Height 188 cm (6' 2 ) 07/17/2022 1:00 PM EDT Body Mass Index 29.44 07/17/2022 1:00 PM EDT Plan of Treatment Health Maintenance Due Date Last Done Comments Abdominal Aortic Aneurysm Screening 1950 Anxiety Screening 1968 Depression Screening 1968 Hepatitis C Screening 1968 DTaP,Tdap,Td Vaccine (1 - Tdap) [address] Colonography 1995 Cologuard (FIT-DNA) 1995 Colonoscopy 1995 Colorectal Cancer Screening 1995 Fecal Occult Blood 1995 Sigmoidoscopy 1995 Pneumococcal Vaccine: 50+ (1 of 1 - PCV) 2000 Shingrix Vaccine (1 of 2) 2000 Covid-19 Vaccine (4 - 2023-2 5 season) 2023 02/20/2021, 09/05/2020, 08/03/2020 Advance Directive Discussion 04/07/2024 Influenza Vaccine (Season Ended) 2024 01/22/20, 01/30/2021 RSV Vaccine (1 - 1-dose 75+ series) 2025 Diabetes Screening 07/18/2025 07/18/2022, 0 07/18/2022, 07/17/2022, Additional history exists Procedures Procedure Name Priority Date/Time Associated Diagnosis Comments COMPREHENSIVE METABOLIC PANEL Routine 07/18/2022 4:27 AM EDT from Last 3 Months or Most Recently Relevant to Health Maintenance Results * (ABNORMAL) COMP METABOLIC PANEL (07/18/2022 4:27 AM EDT) Protein, Total 7.8 6.3 - 8.0 g/dL 07/18/2022 6:26 AM [facility] Albumin 3.2(L) 3.9 - 4.9 g/dL 07/18/2022 6:26 AM [facility] Calcium, Total 8.6 8.5 - 10.2 mg/dL 07/18/2022 6:26 AM [facility] Bilirubin, Total 0.2 0.2 - 1.3 mg/dL 07/18/2022 6:26 AM [facility] Alkaline Phosphatase 120(H) 38 - 113 U/L 07/18/2022 6:26 AM [facility] AST 20 14 - 40 U/L 07/18/2022 6:26 AM [facility] ALT 10 10 - 54 U/L 07/18/2022 6:26 AM [facility] Glucose 117(H) 74 - 99 mg/dL 07/18/2022 6:26 AM [facility] Comment: The [place] Diabetes Association (ADA) provides guidance for cutoff [...] Standards of Medical Care in Diabetes 2016, [place] Diabetes Association. Diabetes Care. 2016.39(Suppl 1). BUN 73(H) 9 - 24 mg/dL 07/18/2022 6:26 AM [facility] Creatinine 4.66(H) 0.73 - 1.22 mg/dL 07/18/2022 6:26 AM [facility] Sodium 139 136 - 144 mmol/L 07/18/2022 6:26 AM [facility] Potassium 5.3(H) 3.7 - 5.1 mmol/L 07/18/2022 6:26 AM [facility] Chloride 107(H) 97 - 105 mmol/L 07/18/2022 6:26 AM [facility] CO2 21(L) 22 - 30 mmol/L 07/18/2022 6:26 AM [facility] Anion Gap 11 9 - 18 mmol/L 07/18/2022 6:26 AM [facility] Estimated Glomerular Filtration Rate 13(L) >=60 mL/min/1. 73m 07/18/2022 6:26 AM [facility] Comment:Estimated Glomerular Filtration Rate (eGFR) is calculated using the 2020 CKD-EPI creatinine equation. This equation utilizes serum creatinine, sex, and age as parameters. The creatinine assay has traceable calibration to isotope dilution- mass spectrometry. Refer to KDIGO guidelines for clinical interpretation. In patients with unstable renal function, e.g. those with acute kidney injury, the eGFR may not accurately reflect actual GFR. Blood BLOOD SPECIMEN / Unknown Venipuncture / Unknown 07/18/2022 4:27 AM EDT 07/18/2022 5:24 AM EDT us Kwasi Osullivan MD LABORATORY Final Resul t [facility] [id number] [place] [address], [place] from Last 3 Months or Most Recently Relevant to Health Maintenance Insurance MEDICARE Member Subscriber Plan / Payer (Ef fective 2007-Present) Name:Lnony gallagher Member ID:[id number] Relation to Subscriber:Self Name:Lonny Lott Subscriber ID:[id number] Payer ID:Not on file Group ID:Not on file Type:Medicare Address: [facility] [place] [id number] [place]ICA[place] MEDICARE Care Teams Material Handler Floorperson Relationship Specialty Start Date End Date Anton Mcgee DO [address] [place] [address] PCP - General Family Medicine 05/06/22
== END 2024-09-02 13:37 | disposition home or self-care (01) ==
LOC: WC 13:36
PROVIDERS: Visit Provider Physician Assistant
DX: L89.613 Pressure ulcer of right heel, stage 3 (principal); E11.621 Type 2 diabetes mellitus with foot ulcer; L97.412 Non-pressure chronic ulcer of right heel and midfoot with fat layer exposed; L89.623 Pressure ulcer of left heel, stage 3; L89.893 Pressure ulcer of other site, stage 3; L97.422 Non-pressure chronic ulcer of left heel and midfoot with fat layer exposed
CPT/HCPCS: 11042; 11043; 11045; 11046; 29580

== ENCOUNTER 2024-10-05 13:23 | Outpatient (OUT) | payer MEDICARE, MEDICAID, SELFPAY | END 2024-10-05 13:24 | disposition home or self-care (01) | LOC: WC 13:23 | PROVIDERS: Visit Provider Physician Assistant | DX: E11.621 Type 2 diabetes mellitus with foot ulcer (principal); L97.422 Non-pressure chronic ulcer of left heel and midfoot with fat layer exposed; L97.812 Non-pressure chronic ulcer of other part of right lower leg with fat layer exposed; L89.614 Pressure ulcer of right heel, stage 4; L97.415 Non-pressure chronic ulcer of right heel and midfoot with muscle involvement without evidence of necrosis; L97.425 Non-pressure chronic ulcer of left heel and midfoot with muscle involvement without evidence of necrosis | CPT/HCPCS: 11043; 11046 ==

== ENCOUNTER 2024-10-14 13:04 | Outpatient (OUT) | payer MEDICARE, MEDICAID, SELFPAY | END 2024-10-14 13:05 | disposition home or self-care (01) | LOC: WC 13:06 | PROVIDERS: Visit Provider Podiatrist Foot & Ankle Surgery | DX: E11.621 Type 2 diabetes mellitus with foot ulcer (principal); L97.422 Non-pressure chronic ulcer of left heel and midfoot with fat layer exposed; L97.812 Non-pressure chronic ulcer of other part of right lower leg with fat layer exposed; L89.614 Pressure ulcer of right heel, stage 4; L97.415 Non-pressure chronic ulcer of right heel and midfoot with muscle involvement without evidence of necrosis; L97.425 Non-pressure chronic ulcer of left heel and midfoot with muscle involvement without evidence of necrosis; L97.512 Non-pressure chronic ulcer of other part of right foot with fat layer exposed | CPT/HCPCS: G0463 ==

== ENCOUNTER 2024-10-21 15:01 | Outpatient (OUT) | payer MEDICARE, MEDICAID, SELFPAY ==
--- OUTSIDE RECORDS SUMMARY | 2012-07-22 10:40 | XMS_ITS | Continuity of Care Document ---
Demographics Address Unknown Address [address] [place] [address] Home Phone Preferred Language en Marital Status Unknown Yazidi Affiliation Unknown Race Black or Domonique rican Ethnic Group Unknown Author Organization [facility] Address [address] [place] [address] Phone Care Team Providers Care Tire Layer Name Role Phone Brigitte BERMEOTico Unavailable Unavailable [...] Diagnoses Date Provider Providers Copied on Encounter [facility], [address] [place] [address], [id number], tel:[phone] [facility] No Information Brigitte GHOSH Tico. [address] [place], [place], [id number], [place]. tel:[phone] [facility], [address] [place] [address], [id number], [place] tel:[phone] [facility] No Information Brigitte GHOSH Tico. [address] [place], [place], [id number], [place]. tel:[phone] [facility], [address] [place] [address], [id number], [place] tel:[phone] [facility] Screening examination for pulmonary tuberculosis Brigitte Ridley. [address] [place] [address], [id number], . tel:[phone] Family History Family Member Type Diagnosis Age At Onset No Information Payers Payer name Insurance type Covered libertarian ID Authoriza tion(s) No Information Social History [...]
--- OUTSIDE RECORDS SUMMARY | 2024-01-22 04:30 | XMS_ITS ---
Author Organization [facility] [place] Address [address] [place] [address] Care Team Providers Care Clinic Md Associate Name Role Phone None, Unknown or Primary Care Provider Unavailab Jhonny Paulson Unavailable [phone] REASON FOR VISIT RT heel wound debridement, skin substitute Encounters Encounter Location Date Provider Diagnosis [facility] [address] [place] [phone] 01/22/2024 Jhonny Myles Plan Of Treatment No Information Progress Notes * Lonny LOVE EDOB:1949 (74 yo M)Acc No.[id number]:01/22/2024 UNLOCKED PROGRESS NOTE Patient: Lonny MCCLELLAND Provider: Hilda Myles DPM, MS :1950 A ge:73 Y S ex:Male Date:01/22/2024 Address:[address] [place], [place] [phone] Pcp:Unknown or None Check Out:01:05 PM EST * * Electronic signature of Felipe Myles DPM on 10/21/2024 at 03:12 PM EDT Sign off status: Pending Visit Status: C HK (Check Out) * Provider: Hilda Myles DPM, MS Date: Generated for Jeaneth pyle/Jacob/eTransmitting on: 0 10/21/2024 03:12 PM EDT
--- OUTSIDE RECORDS SUMMARY | 2024-09-30 13:00 | XMS_ITS ---
Author Organization [facility] Address [address] [place] [address] Care Team Providers Care Auto [place] Driver Name Role Phone Mervat Santiago Primary Care Provider REASON FOR VISIT Diabetic foot ulcer Encounters Encounter Location Date Provider Diagnosis [facility] [address] [facility] [place] [address] 09/30/2024 Mervat Santiago Plan Of Treatment Next Appt Details Provider Name:Mervat Santiago, 11/23/2024 09:00:00 AM, [address] [place], [place], [address], Progress Notes * KATESIMON EDOB:1949 (74 yo M)Acc No.[id number]:09/30/2024 Progress Note Patient: SIMON MCCLELLAND Appointment Provider: Francisco Javier Santiago NP :1950 A ge:74 Y S ex:Male Date:09/30/2024 Address:[address], [place], [place] Subjective: * Chief Complaints: * 1 . Diabetic foot ulcer. * Medical History: Objective: * Vitals: Assessment: Plan: * Treatment: Care Plan: * Problems: * Images: * Electronic signature of [place]on Santiago CNP on 10/21/2024 at 03:13 PM EDT Sign off status: Pending * Appointment Provider: Francisco Javier Santiago NP Date: 0 09/30/2024 Generated for Jeaneth pyle/Jacob/Patti on: 0 10/21/2024 03:13 PM EDT
--- OUTSIDE RECORDS SUMMARY | 2024-10-07 07:00 | XMS_ITS ---
Author Organization [facility] Address [address] [place] [address] Care Team Providers Care Raw Sampler Name Role Phone Mervat Santiago Primary Care Provider REASON FOR VISIT 3month f/u Encounters Encounter Location Date Provider Diagnosis [facility] [address] [place] [address] 10/07/2024 Mervat Santiago Plan Of Treatment Next Appt Details Provider Name:Mervat Santiago, 11/23/2024 09:00:00 AM, [address] , [place], [address], Progress Notes * KATE SIMON EDOB:1949 (74 yo M)Acc No.[id number]:10/07/2024 Progress Notes Patient: SIMON MCCLELLAND Appointment Provider: Francisco Javier Santiago NP :1950 A ge:74 Y S ex:Male Date:10/07/2024 Address[address], [place], [place] Subjective: * Chief Complaints: * 1 . 3month f/u. * Medical History: Objective: * Vitals: Assessment: Plan: * Treatment: * Images: * Electronic signature of [place]on Santiago CNP on 10/21/2024 at 03:14 PM EDT Sign off status: Pending * Appointment Provider: Francisco Javier Santiago NP Date: 0 10/07/2024 Generated for Jeaneth pyle/Jacob/Patti on: 0 10/21/2024 03:14 PM EDT
--- OUTSIDE RECORDS SUMMARY | 2024-10-15 07:06 | XMS_ITS | Continuity of Care Document ---
Author Organization [facility] Address [address] [place] [address] Phone Care Team Providers Care Bibliographic Services Specialist Name Role Phone Johan Taylor MD Attending Provider [phone] Katlin Castellanos PA-C Attending Provider Mervat Santiago GANG BOSS-C Primary Care Provider Anna Martin Attending Provider Mervin Segovia DO Emergency Provider Nick Wayne MD Admit Provider Julian Jones MD Attending Provider Anna Martin Other Provider Nathaniel Alonso DPRenard Other Provider Kwasi Pitt MD Other Provider [phone] Julian Jones MD Other Provider Kwasi Pitt MD Attending Provider Pedro Drake MD Emergency Provider Minnie Foote DO Emergency Provider Kwasi Sampson DO Admit Provider [phone] Frings, Kwasi DO Other Provider Yisel Andrade MD Attending Provider Yisel Andrade MD Other Provider Jaylin Drake DPM Other Provider [phone] Jon Guerrero MD Emergency Provider Fawad Rocha MD Attending Provider Fawad Rocha MD Other Provider Fawad Rocha MD Admit Provider Niru Abdi RN Other Provider Unavailable Inge Dahl RN Other Provider Unavailable Mony Callaway RN Other Provider Unavailable Theodora Garcias RN Other Provider Unavailable Jmai Gómez RN Other Provider Unavailable Edna Bella RN Other Provider Unavailable Emelyn Cabral MD Other Provider Allegra Reyes DO Other Provider Jose Mascorro MD Other Provider Chris Mccarthy DO Other Provider Thad Roahc MD Other Provider [phone] Rosy Kan MD Other Provider Kwasi Up DO Other Provider [phone] Rohit Dye MD Other Provider Unavailable Sara Pantoja APRN Other Provider Audi Gordon MD Other Provider Mariano Martinez MD Other Provider Niranjan Santos MD Other Provider Unavailable Deric Connors MD Other Provider Agustin Avilez MD Other Provider Anant Handy MD Other Provider Elisabet Soni GANG BOSS-C Other Provider [phone] Sorin Vaughn WELDER FITTER ARC Other Provider Unavailable Landon Grullon MD Other Provider Balbir Cam MD Other Provider Aric Velásquez MD Other Provider Yovani Mcallister MD Other Provider Unavailable Kevin Steinberg MD Other Provider Cecilia Tolliver DO Other Provider Xavi Valencia DO Other Provider Annika Kan WELDER FITTER ARC Other Provider Deo Bernabe DO Other Provider Makenzie Drake WELDER FITTER ARC Other Provider Carissa Huntley WELDER FITTER ARC Other Provider Ct Singh MD Other Provider Unavailable Ronald Espinal MD Other Provider Zane Zamora DO Other Provider Sabino Mederos DO Other Provider [phone] Jamari Velásquez MD Other Provider Slick Lawrence MD Other Provider Suzanne Dave WELDER FITTER ARC Other Provider Unavailable Charito Ferguson MD Other Provider Nick Wayne MD Other Provider Favio Augustine MD Other Provider Rohit Goldsmith MD Other Provider [phone] Nikolai Leonard MD Other Provider Elayne Robins WELDER [employer]TER ARC Other Provider [phone] Amilcar Mckeon WELDER FITTER ARC Other Provider [phone] Lata Chapa RN Other Provider Unavailable Johan Taylor MD Other Provider Care Teams Patient Care Team Team Status: Active Member Role Status Dates Mervat Santiago , GANG BOSS-C Primary Care Provider Active Visit Care Team Team Status: Active Member Role Status Dates Johan Taylor MD Attending Provider Active Star t: July 29, 2024 Visit Care Team Team Status: Inactive Member Role Status Dates Katlin Castellanos PAStefanieC Attending Provider Active Start: August 03, 2024 End: August 03, 2024 Visit Care Team Team Status: Active Member Role Status Dates Mervat Santiago , GANG BOSS-C Primary Care Provider Active Start: August 31, 2024 Olga Lidia Martin MD Attending Provider Active Start : August 31, 2024 Visit Care Team Team Status: Inactive Member Role Status Dates Mervin Segovia DO Emergency Provider Active Start: September 09, 2024 End: September 10, 2024 Mervat Santiago , GANG BOSS-C Primary Care Provider Active Start: September 09, 2024 End: September 10, 2024 Visit Care Team Team Status: Inactive Member Role Status Dates Mervat Santiago , GANG BOSS-C Primary Care Provider Active Start: September 10, 2024 End: September 14, 2024 Mervin Segovia DO Emergency Provider Active Start: September 10, 2024 End: September 14, 2024 Nick Wayne MD Admit Provider Active Start: 2024 End: September 14, 2024 Julian Jones MD Attending Provider Active Start: September 10, 2024 End: September 14, 2024 Olga Lidia Martin MD Other Provider Active Start: 2024 End: September 14, 2024 Nathainel Alonso DPM Other Provider Active Start: September 10, 2024 End: September 14, 2024 Kwasi Pitt MD Other Provider Active Start: September 10, 2024 End: September 14, 2024 Visit Care Team Team Status: Active Member Role Status Dates Mervat Santiago , GANG BOSS-C Primary Care Provider Active Start: September 11, 2024 Mervin Segovia DO Emergency Provider Active Start: September 11, 2024 Nick Wayne MD Admit Provider Active Start: 2024 Julian Jones MD Other Provider Active Sta rt: September 11, 2024 Olga Lidia Martin MD Attending Provider Active Start : September 11, 2024 Olga Lidia Martin MD Other Provider Active Start: 2024 Nathaniel Alonso DPM Other Provider Active Start: September 11, 2024 Visit Care Team Team Status: Active Member Role Status Dates Mervat Santiago , GANG BOSS-C Primary Care Provider Active Start: September 13, 2024 Mervin Segovia DO Emergency Provider Active Start: September 13, 2024 Nick Wayne MD Admit Provider Active Start: 2024 Julian Jones MD Other Provider Active Sta rt: September 13, 2024 Olga Lidia Martin MD Other Provider Active Start: 2024 Nathaniel Alonso DPM Other Provider Active Start: September 13, 2024 Kwasi Pitt MD Attending Provider Active Sta rt: September 13, 2024 Kwasi Pitt MD Other Provider Active Start: September 13, 2024 Visit Care Team Team Status: Inactive Member Role Status Dates Pedro Drake MD Emergency Provider Active Star t: September 15, 2024 End: September 16, 2024 Mervat Santiago , GANG BOSS-C Primary Care Provider Active Start: September 15, 2024 End: September 16, 2024 Visit Care Team Team Status: Active Member Role Status Dates Mervat Santiago GANG BOSS-C Primary Care Provider Active Start: September 22, 2024 Minnie Foote DO Emergency Provider Active Sta rt: September 22, 2024 Kwasi Sampson DO Admit Provider Active Start: September 22, 2024 Kwasi Sampson DO Other Provider Active Start: September 22, 2024 Yisel Andrade MD Attending Provider Active Star t: September 22, 2024 Yisel Andrade MD Other Provider Active Start: 2024 Jaylin Drake DPM Other Provider Active Star t: September 22, 2024 Visit Care Team Team Status: Inactive Member Role Status Dates Mervat Santiago , GANG BOSS-C Primary Care Provider Active Start: October 07, 2024 End: October 07, 2024 Jon Guerrero MD Emergency Provider Active Sta rt: October 07, 2024 End: October 07, 2024 Visit Care Team Team Status: Inactive Member Role Status Dates Johan Taylor MD Attending Provider Active Star t: October 11, 2024 End: October 11, 2024 Visit Care Team Team Status: Active Member Role Status Fawad Rocha MD Attending Provider Active S tart: October 12, 2024 Fawad Rocha MD Other Provider Active Start : October 12, 2024 Mervat Santiago , GANG BOSS-C Primary Care Provider Active Start: October 12, 2024 Visit Care Team Team Status: Active Member Role Status Fawad Rocha MD Admit Provider Active Start : October 12, 2024 Fawad Rocha MD Other Provider Active Start : October 12, 2024 Mervat Santiago , GANG BOSS-C Primary Care Provider Active Start: October 12, 2024 Niru Abdi , VIOLET Other Provider Active Star t: October 12, 2024 Inge Dahl , VIOLET Other Provider Active Start : October 12, 2024 Mony Callaway , VIOLET Other Provider Active Star t: October 12, 2024 Theodora Garcias , VIOLET Other Provider Active Start: 2024 Jami Gómez RN Other Provider Active Start: 2024 Edna Bella , VIOLET Other Provider Active Start: 2024 Emelyn Cabral MD Other Provider Active Start: October 12, 2024 Allegra Reyes DO Other Provider Active Start : October 12, 2024 Jose Mascorro MD Other Provider Active Start : October 12, 2024 Chris Mccarthy DO Other Provider Active Start: October 12, 2024 Thad Roach MD Other Provider Active Start: October 12, 2024 Rosy Kan MD Other Provider Active Start : October 12, 2024 Kwasi Up DO Other Provider Active St art: October 12, 2024 Rohit Dye MD Other Provider Active Start: 2024 Sara Pantoja APRN Other Provider Active Start: October 12, 2024 Audi Gordon MD Other Provider Active Start: October 12, 2024 Mariano Martinez MD Other Provider Active Start: 2024 Niranjan Santos MD Other Provider Active Start: October 12, 2024 Deric Connors MD Other Provider Active Start: October 12, 2024 Kwasi Sampson DO Other Provider Active Start: October 12, 2024 Agustin Avilez MD Other Provider Active Start: 2024 Anant Handy MD Other Provider Active Start: Oct Elisabet Soni GANG BOSS-C Other Provider Active St art: October 12, 2024 Sorin Vaughn APRN Other Provider Active Star t: October 12, 2024 Landon Grullon MD Other Provider Active Start: October 12, 2024 Balbir Cam MD Other Provider Active Start: 2024 Aric Velásquez MD Other Provider Active Start: Oct Yovani Mcallister MD Other Provider Active Star t: October 12, 2024 Kevin Steinberg MD Other Provider Active Start: 2024 Cecilia Tolliver DO Other Provider Active Start: 2024 Xavi Valencia , Other Provider Active Start : October 12, 2024 Annika Kan APRN Other Provider Active Start: October 12, 2024 Deo Bernabe DO Other Provider Active Start: October 12, 2024 Julian Jones MD Other Provider Active Sta rt: October 12, 2024 Makenzie Drake APRN Other Provider Active Start : October 12, 2024 Carissa Huntley APRN Other Provider Active St art: October 12, 2024 Ct Singh MD Other Provider Active Start: 2024 Ronald Espinal MD Other Provider Active S tart: October 12, 2024 Zane Zamora , Other Provider Active Star t: October 12, 2024 Sabino Mederos DO Other Provider Active Start: October 12, 2024 Jamari Velásquez MD Other Provider Active Start: October 12, 2024 Slick Lawrence MD Other Provider Active Start: October 12, 2024 Suzanne Dave APRN Other Provider Active Star t: October 12, 2024 Charito Ferguson MD Other Provider Active Start: 2024 Nick Wayne MD Other Provider Active Start: 2024 Favio Augustine MD Other Provider Active Start: October 12, 2024 Rohit Goldsmith MD Other Provider Active Start : October 12, 2024 Nikolai Leonard MD Other Provider Active Start: Rosalie greenberg 2024 Elayne Robins APRN Other Provider Active Sta rt: October 12, 2024 Amilcar Mckeon APRN Other Provider Active Start: October 12, 2024 Lata Chapa RN Other Provider Active Start: Rosalie greenberg 2024 Johan Taylor MD Attending Provider Active Star t: October 12, 2024 Johan Taylor MD Other Provider Active Start: Rosalie greenberg 2024 Visit Care Team Team Status: Active Member Role Status Dates Mervat Santiago , GANG BOSS-C Primary Care Provider Active Start: October 15, 2024 Fawad Rocha MD Attending Provider Active S tart: October 15, 2024 Fawad Rocha MD Other Provider Active Start : October 15, 2024 Chief Complaint and Reason for Visit Chief Complaint Admit Date Unknown August 03, 2024 9:3 6am Ill September 09, 2024 5:11p m Altered / Change Mental Status September 10, 2024 9:19pm Altered / Change Mental Status September 11, 2024 10:56am Altered / Change Mental Status September 13, 2024 9:31am fall September 15, 2024 10:2 7pm Diarrhea September 22, 2024 3:09 pm lac to right foot October 07, 2024 12:29 pm hyperkalemia October 11, 2024 12:20 pm ESRD October 12, 2024 1:54p m ESRD October 12, 2024 1:55p m Dialysis cath insert October 15, 2024 5:2 7am Reason for Visit Admit Date ESRD (end stage renal disease) on dialys is September 10, 2024 9:19pm Foot drop, right September 10, 2024 9:19p m Hypertensive chronic kidney disease with stage 5 chronic kidney disease or September 10, 2024 9:19pm PAD (peripheral artery disease) September 9:19pm Type 2 diabetes mellitus with diabetic c hronic kidney disease September 10, 2024 9:19pm Type 2 diabetes mellitus with foot ulcer September 10, 2024 9:19pm Type 2 diabetes mellitus with peripheral neuropathy September 10, 2024 9:19pm Diabetic foot ulcer September 10, 2024 9:19p m Elevated troponin I level September 10, 2024 9:19pm Nausea September 10, 2024 9:19p m Anemia of renal disease September 10, 2024 9 :19pm End-stage renal disease on hemodialysis September 10, 2024 9:19pm Wound of foot September 10, 2024 9:19p m Diarrhea September 22, 2024 3:09 pm ESRD (end stage renal disease) on dialys is September 22, 2024 3:09pm Secondary hyperparathyroidism September 22, 2024 3:09pm Type 2 diabetes mellitus with peripheral neuropathy September 22, 2024 3:09pm Cellulitis September 22, 2024 3:09 pm Ulcer of left heel September 22, 2024 3:09 pm Ulcer of right heel September 22, 2024 3:09 pm Anemia of renal disease September 22, 2024 3:09pm Diabetes September 22, 2024 3:09 pm Infected wound September 22, 2024 3:09 pm Status post amputation of left foot September 22, 2024 3:09pm Ulcer of left foot September 22, 2024 3:09 pm Clotted renal dialysis AV graft October 1:55pm Diabetes October 12, 2024 1:55p m Dialysis AV fistula malfunction October 1:55pm ESRD (end stage renal disease) on dialys is October 12, 2024 1:55pm Secondary hyperparathyroidism October 12, 2024 1:55pm Anemia of renal disease October 12, 2024 1 :55pm Reason for Referral Referring Provider Name Referring Provider Address Referring Provider Phone Referral Date Requested Appointment Date Referral Reason Fawad Melanyaliviajosé [address] [address] Work Phone: Call for appointment to schedule next procedure Nick Wayne [facility] [id number] Work Phone: Previously scheduled appointment. [employer] [facility] [address] Work Phone: Call for appointment to schedule next procedure Previously scheduled appointment. You have b een scheduled for a follow up appointment for the following date and time, please call to reschedule if needed. Health Concerns Concerns A [facility] screening has identified you as FRAIL or AT RISK FOR FRAILTY. This puts you at a higher risk for infection, illness, falls, and other injuries. Here are four ways to help you reduce your risk of frailty: 1. IDENTIFY EARLY SIGNS OF FRAILTY Discuss contributing factors and concerns with your doctor 2. BE ACTIVE Walking and light strengthening exercises will help reduce weakness 3. EAT WELL Aim for three healthy meals a day that are high in protein 4. THINK POSITIVE Keep your mind active by being sociable and continuing to learn References: Stay Strong: Four Ways to Beat the Frailty Risk [email or web address]-[email or web address]/[email or web address]-daltsd-fsmk- ways- [email or web address]-ucnb-rse-fra ilty-risk Allergies, Adverse Reactions, Alerts Allergen Type Severity Reaction Last Updated Verified Status Comments codeine Allergy Unknown Unknown Reaction October 2:25pm Yes Active It just doesn't feel right lisinopril Allergy Unknown Swelling of Lip/Tongue/Throa t, anaphylaxis October 12, 2024 2:25pm Yes Active Social History Smoking Status Status Start Date End Date Date of Observa tion Smokes tobacco daily (finding) October 15, 2024 7:24am Observation Status Observation Response Date of Response Legal Sex Male (finding) Sex Assigned At Male March [id number] Social History Assessments Assessment Value Date Recorded SDOH Follow up September 24, 2024 6:41am Question Answer Date Recorded Has the SDOH screening changed since admission? N September 24, 2024 6:41am Assessment Value Date Recorded SDOH Follow up September 14, 2024 12:32pm Question Answer Date Recorded Has the SDOH screening changed since admission? N September 14, 2024 12:32pm Family History Relationship Condition Age at Onset Recorded Date/T rd mother Diabetes mellitus Unknown Hypertension Unknown Disorder of kidney Unknown father Diabetes mellitus Unknown Hypertension Unknown Disorder of kidney Unknown sister Diabetes mellitus Unknown brother Diabetes mellitus Unknown brother Diabetes mellitus Unknown daughter Family history of mental disorder Unknown Heart disease Unknown Diabetes mellitus Unknown father Diabetes mellitus Unknown Unknown mother Hypertension Unknown Diabetes mellitus Unknown Unknown Problems Active Problems Medical Problem Onset Date Status Comments TOM (acute kidney injury) Unknown Active Complication of nephrostomy Unknown Active UTI (urinary tract infection) Unknown Active Hydronephrosis Unknown Active Patient has h istory of nephrolithiasis with left-sided hydronephrosis. Patient is supposed to follow with Dr. CALZADA in urology office. Patient had left percutaneous nephrostomy tube placed which was removed 3 months ago. Patient has been refusing to follow-up with urology and he did refuse intervention during hospitalization on October 2022. Hydroureteronephrosis Unknown Active Wound of right foot Unknown Active Pressure ulcer, stage III Unknown Active Lab test positive for detect ion of COVID-19 virus Unknown Active COVID-19 Unknown Active Obstruction of nephrostomy tube Unknown Active Type 2 diabetes mellitus wit h diabetic chronic kidney disease Unknown Active Type 2 diabetes mellitus wit h foot ulcer Unknown Active Diabetes mellitus with ulcer of foot Unknown Acti ve High anion gap metabolic acidosis Unknown Active Secondary hyperparathyroidism Unknown Active Dialysis AV fistula malfunction Unknown Active Bacterial infection due to P roteus mirabilis Unknown Active Diabetes Unknown Active Alcohol abuse Unknown Active Unable to care for self Unknown Active Diabetic foot ulcer Unknown Active Diabetic foot ulcer Unknown Active Diabetic foot ulcer Unknown Active Diabetic foot ulcer Unknown Active AV fistula infection Unknown Active Anemia Unknown Active Anemia Unknown Active Anemia Unknown Active AV fistula Unknown Active Bacteremia Unknown Active Hemodialysis access, AV graft Unknown Active Diarrhea Unknown Active Type 2 diabetes mellitus wit h peripheral neuropathy Unknown Active Hyponatremia Unknown Active Nephrolithiasis Unknown Active Leukocytosis Unknown Active CKD (chronic kidney disease) Unknown Active Bilateral ureteral calculi Unknown Active Anemia in chronic kidney dis ease (CKD) Unknown Active PVD (peripheral vascular disease) Unknown Active Hypertensive chronic kidney disease with stage 5 chronic kidney disease or end stage renal disease Unknown Active Clotted renal dialysis AV graft Unknown Active Sepsis Unknown Active ESRD (end stage renal diseas e) on dialysis Unknown Active PAD (peripheral artery disease) Unknown Active Foot drop, right Unknown Active Metabolic acidosis Unknown Active Peripheral vascular occlusive disease Unknown Act jordin Hydronephrosis, left Unknown Active Renal calculus, left Unknown Active Osteomyelitis of foot Unknown Active Osteomyelitis of foot Unknown Active Renal hemorrhage, left Unknown Active Cellulitis and abscess of right leg Unknown Activ e Osteomyelitis Unknown Active Osteomyelitis Unknown Active Hyperkalemia Unknown Active Potassium in th e high range of normal related to progressive chronic kidney disease and obstructive uropathy. He is on potassium supplement that will be stopped. Continue furosemide 40 mg twice a day. Acute hyperkalemia Unknown Active Infection due to Stenotropho monas maltophilia Unknown Active Inactive/Resolved Problems Medical Problem Onset Date Status Comments Ulcer of left heel Unknown Resolved Left against medical advice Unknown Resolved Elevated troponin I level Unknown Resolved Bacteremia Unknown Resolved Cellulitis Unknown Resolved Ulcer of right heel Unknown Resolved Hypoglycemia Unknown Resolved Syncope Unknown Resolved Superficial laceration Unknown Resolved Nausea Unknown Resolved Nausea Unknown Resolved Contusion of leg, right Unknown Resolved Abrasion of fifth toe of right foot Unknown Resol gabriel Medications Medication Status Dose Units Route Directions Qty Days St art Date Stop Date End Date Instructions Adherence Furosemide 40 mg tablet Discont inued 40 MG PO Daily 2016 12:00a m Febru beti2020 1:42p m Atorvastati n 40 mg tablet Discont inued 40 MG PO Daily 2016 12:00a m Febru beti 2020 10:40 am Amitriptyli ne 50 mg tablet Discont inued 25 MG PO Daily 2016 12:00a m Febru beti 2020 10:40 am Potassium Chloride 20 mEq tablet,ER particles/c rystals Discont inued 30 MEQ PO Daily 2016 12:00a m Octob er 2019 9:53a m Tamsulosin (Flomax) 0.4 mg capsule,ext ended release 24hr Discont inued 0.4 MG PO Twice daily 2016 12:00a m Janua ry 2022 11:08 am Gabapentin 800 mg tablet Discont inued 800 MG PO Twice daily 2016 12:00a m Decem stefanie 2019 10:06 am Insulin Aspart U-100 100 unit/mL solution Discont inued 25 slidin g scale dose SUBCUT Before meals and at bedtime 2016 12:00a m Octob er 2019 8:30a m Insulin Detemir U-100 100 unit/mL solution Discont inued 0 UNIT SUBCUT Before meals and at bedtime Protocol: *If the corrective scale dose has been administere d within the past 4 hours, do not use corrective scale again unless approved by prescriber* Condition: Corrective Scale #2 (TDI 26-50 UNITS) Condition: = Dose/Route: = Instruction s: = Condition: Fingerstick Blood Glucose Dose/Route: Insulin Units Condition: 150-199 mg/dl Dose/Route: 2 unit Condition: 200-249 mg/dl Dose/Route: 3 unit Condition: 250-299 mg/dl Dose/Route: 5 unit Condition: 300-349 mg/dl Dose/Route: 7 unit Condition: 350-399 mg/dl Dose/Route: 8 unit Condition: greater than or = 400 mg/dl Dose/Route: 9 unit Instruction s: Call Provider 2016 12:00a m [facility] 2019 10:30 am . Please contact the information source for Protocol details. Multivitami n Tablet Discont inued 1 TAB PO Daily 2016 12:00a m [facility]2020 1:43p m Ferrous Sulfate 325 mg (65 mg iron) Tablet Discont inued 325 MG PO Daily 2016 12:00a m Octob er 2019 9:52a m Aspirin 81 mg Tablet,Chew able Discont inued 81 MG PO Daily 2016 12:00a m [facility] 2020 1:39p m Vitamin B Complex Capsule Discont inued 1 CAP PO Daily 2016 12:00a m [facility] 2020 1:45p m Amoxicillin -Pot Clavulanate (Augmentin) 875-125 mg Tablet Discont inued 2016 12:00a m October 13, 2019 9:55a m Duloxetine 20 mg capsule,del ayed release(DR/ EC) Discont inued 2016 12:00a m October 13, 2019 10:01 am Cholecalcif jeremie (Vitamin D3) (Vitamin D3) 2,000 unit Capsule Discont inued 2000 UNIT PO Daily 2016 12:00a m [facility] 2020 1:40p m Lactobacill us Combination No.4 (Probiotic) 3 billion cell Capsule Discont inued 2016 12:00a m [facility] 2019 8:19a m Plecanatide (Trulance) 3 mg tablet Discont inued 3 MG PO Daily 30 2016 12:00a m Octob er 2019 9:53a m Gabapentin (Neurontin) 800 mg Tablet Discont inued 800 MG [facility] m Aug[facility] t 2021 7:18p m Acetaminoph en (Tylenol) 325 mg Tablet Discont inued 650 MG PO Q4H as needed for Pain [facility] 2019 1:00am October 21, 2022 12:42 pm Duloxetine 20 mg Capsule,Del ayed Release(Dr/ Ec) Discont inued 60 MG PO Twice daily [facility] 2019 1:00am September 10, 2022 4:38p m Potassium Chloride (Klor-Con M20) 20 mEq Tablet,Er Particles/C rystals Discont inued 20 MEQ PO Twice daily [facility] 2019 1:00am Febru beti 2020 1:44p m Insulin Aspart U-100 (Novolog U-100 Insulin Aspart) 100 unit/mL Solution Discont inued 6 UNIT SUBCUT Daily [facility] 2019 1:00am u beti2020 1:42p m with supper Insulin Aspart U-100 (Novolog U-100 Insulin Aspart) 100 unit/mL Solution Active 0 UNIT SUBCUT Before meals and at bedtime Protocol: *If the corrective scale dose has been administere d within the past 4 hours, do not use corrective scale again unless approved by prescriber* Condition: = Dose/Route: = Instruction s: = Condition: Fingerstick Blood Glucose Dose/Route: Insulin Units Condition: 151-200mg/d l Dose/Route: 2 unit Condition: 201-250mg/d l Dose/Route: 4 units Condition: 251-300mg/d l Dose/Route: 6 units Condition: 301-350mg/d l Dose/Route: 8 units Condition: 351-400mg/d l Dose/Route: 10 units Condition: 401-450mg/d l Dose/Route: 12 units Condition: 451-500mg/d l Dose/Route: 14 units Condition: Greater than or = 500 mg/dl Instruction s: Call Provider Condition: Custom Scale 1:___ Instruction s: GIVE 1 UNIT OF ASPART FOR EVERY ___MG GLUCOSE Instruction s: STARTING AT 150MG AT BG CHECKS [facility] 2019 1:00am 151-200 0 units 201-250 2 units 251-300 4units 301-350 6 units 351-400 8 units 401-450 10 units over 400 call doctor Please contact the information source for Protocol details. Unknown Ferrous Sulfate 325 mg (65 mg iron) Tablet Discont inued 325 MG PO Daily [facility] 2019 1:00am [facility]2020 1:41p m Losartan 25 mg Tablet Discont inued 25 MG PO Daily [facility] 2019 1:00am [facility]2020 1:35p m Dextrometho rphan-Benzo macy (Cepacol Sore Throat-Coug h) 5-7.5 mg Lozenge Discont inued 1 LOZENG E PO Q4H as needed for Sore Throat [facility] 2019 1:00am [facility]2020 1:41p m Alpha Lipoic Acid 300 mg Capsule Discont inued 200 MG PO Daily [facility] 2019 1:00am October 21, 2022 12:42 pm Lactobacill us Combination No.4 (Probiotic) 3 billion cell Capsule Discont inued 3000 MMU CELLS PO Daily [facility] 2019 1:00am [facility]2020 1:43p m Plecanatide (Trulance) 3 mg Tablet Discont inued 3 MG PO Daily [facility] 2019 1:00am [facility]2020 1:44p m Cephalexin 500 mg Capsule Discont inued 1000 MG PO Q12H 40 10 September 16, 2020 12:00a [facility] 2021 1:34p m Tamsulosin (Flomax) 0.4 mg Capsule Discont inued 0.4 MG PO Twice daily July 17, 2022 12:00a m September 14, 2024 1:10p m Duloxetine 60 mg capsule,del ayed release(DR/ EC) Active 60 MG PO Daily at bedtime September 10, 2022 12:00a m Unknown Meropenem 500 mg Recon Soln Discont inued 0.5 GM IV Q12H 80 40 September 12, 2022 12:00a m October 24, 2022 4:04p m Vancomycin - Pharmacy Dosing Discont inued 1 EACH IV Once as needed for infection September 12, 2022 12:00a m October 21, 2022 12:42 pm 1 gm IV q 48 with pharmacy to dose for 40 days Nifedipine 60 mg Tablet Extended Release 24hr Discont inued 60 MG PO Daily 30 September 12, 2022 12:00a m October 21, 2022 12:41 pm Sodium Bicarbonate 650 mg Tablet Discont inued 1300 MG PO Three times daily 180 September 12, 2022 12:00a m Decem stefanie 2022 12:33 pm Nifedipine 60 mg tablet extended release 24hr Discont inued 90 MG PO Every morning October 21, 2022 12:41p m September 11, 2024 2:44p m 30mg and 60mg tab for 90mg total Loperamide 2 mg capsule Active 2 MG PO EVERY 2-3 HOURS as needed for loose stool September 24, 2024 12:00a m administer after each loose stool until symptoms controlled; do not exceed 8 mg per 24 hrs Unknown Losartan 50 mg Tablet Discont inued 50 MG PO Daily October 13, 2019 12:00a m Octob er 2019 9:53a m Losartan (Cozaar) 50 mg Tablet Discont inued 50 MG PO Daily October 13, 2019 12:00a m Octob er 2019 9:53a m Clopidogrel (Plavix) 75 mg Tablet Discont inued 75 MG PO Daily October 13, 2019 12:00a m Decem stefanie 2019 10:35 am Acarbose 100 mg Tablet Discont inued 100 MG PO Three times daily October 13, 2019 12:00a m Decem st[facility] 2019 10:34 am Duloxetine (Cymbalta) 60 mg Capsule,Del ayed Release(Dr/ Ec) Discont inued 60 MG PO Daily October 13, 2019 12:00a m Decem stefanie 2019 10:05 am Liraglutide (Victoza 2-Lorne) 0.6 mg/0.1 mL (18 mg/3 mL) Pen Injector Discont inued 1.8 MG SUBCUT Daily October 13, 2019 12:00a m Decem stefanie 2019 10:35 am Levofloxaci n (Levaquin) 750 mg Tablet Discont inued 750 MG PO Daily October 13, 2019 12:00a m October 27, 2019 10:04 am Insulin Detemir U-100 (Levemir U-100 Insulin) 100 unit/mL Solution Discont inued 30 UNIT SUBCUT Daily at bedtime Octobe r 2019 12:00a m Decem stefanie 2019 10:30 am Sodium Hypochlorit e (Dakin's Solution) 0.25 % solution Discont inued 1 APPLIC TOPICA L Once 473 Octobe r 2019 12:00a m Decem stefanie 2019 10:35 am Clindamycin Phosphate 1 % gel Discont inued 1 APPLIC TOPICA L Once 60 Octobe r 2019 12:00a m Octob er 2019 10:11 am Clindamycin Hcl 300 mg capsule Discont inued 300 MG PO Four times daily Octobe r 2019 12:00a m Novem stefanie 2019 2:47p m Amoxicillin -Pot Clavulanate (Augmentin) 875-125 mg tablet Discont inued 1 TAB PO Twice daily 20 10 [facility] 2019 1:00am Dece stefanie 2019 10:52 am Cephalexin (Keflex) 500 mg capsule Discont inued 500 MG PO Q8H 42 14 Dece er 2019 1:00am Dece stefanie 2019 10:34 am Clindamycin Hcl 300 mg capsule Discont inued 300 MG PO Q8H 42 14 Dece er 2019 1:00am Dece stefanie 2019 10:35 am Sodium Hypochlorit e (Dakin's Solution) 0.25 % solution Discont inued 1 APPLIC TOPICA L Daily 473 Decemb er 2019 1:00am Dece stefanie 2019 10:35 am Amoxicillin -Pot Clavulanate (Augmentin) 875-125 mg tablet Discont inued 1 TAB PO Twice daily 20 10 Decemb er 2019 1:00am Janua ry 2020 10:32 am Cephalexin (Keflex) 500 mg capsule Discont inued 500 MG PO Three times daily 30 10 Apr2020 1:00am 2020 10:59 am Clindamycin Hcl 300 mg capsule Discont inued 300 MG PO Three times daily 30 2020 1:00am 2020 10:59 am Levofloxaci n 500 mg tablet Discont inued 500 MG PO Daily 10 2020 1:00am 2020 11:55 am Atorvastati n 10 mg tablet Active 10 MG PO Bedtime 2020 1:00am Unknown Clopidogrel 75 mg tablet Active 75 MG PO Daily 2020 1:00am Unknown Amitriptyli ne 10 mg tablet Discont inued 10 MG PO Bedtime 2020 1:00am July 17, 2022 7:26a m Acarbose 100 mg tablet Discont inued 100 MG PO Three times daily 2020 1:00am 2021 1:34p m Ammonium Lactate 12 % Cream Discont inued 1 APPLIC TOPICA L Every shift 2020 1:00am October 21, 2022 12:42 pm apply to intact areas of BLE every day shift fri sat Doxycycline Hyclate 100 mg tablet Discont inued 100 MG PO Daily 2020 1:00am 2020 1:35p m Sodium Hypochlorit e 0.25 % Solution Discont inued 1 APPLIC TOPICA L 3 Times a week 2020 1:00am September 16, 2020 5:24p m Insulin Detemir U-100 100 unit/mL (3 mL) Insulin Pen Discont inued 40 UNIT SUBCUT Daily 2020 1:00am 2021 1:27p m Liraglutide 0.6 mg/0.1 mL (18 mg/3 mL) Pen Injector Discont inued 1.8 MG SUBCUT Daily 2020 1:00am September 16, 2020 5:24p m Semaglutide (Ozempic) 0.25 mg or 0.5 mg(2 mg/1.5 mL) pen injector Discont inued 0.5 MG SUBCUT every week 2020 1:00am 2020 1:35p m On Empaglifloz in 10 mg Tablet Discont inued 10 MG PO Daily 2020 1:00am 2020 1:35p m Ferrous Sulfate 324 mg (65 mg iron) Tablet,Susi yed Release (/Ec) Discont inued 324 MG PO Every 48 hours 0 2020 1:00am 2021 1:34p m Cefditoren Pivoxil (Spectracef ) 400 mg tablet Discont inued 200 MG PO Daily 4 7 2020 1:00am June 26, 2020 3:41p m must administer with a meal/food Ascorbic Acid (Vitamin C) 500 mg Tablet Discont inued 500 MG PO Daily 2021 1:00am October 21, 2022 12:42 pm Acarbose 100 mg Tablet Discont inued 100 MG PO Three times daily 2021 1:00am September 11, 2024 2:45p m Ferrous Sulfate 325 mg (65 mg iron) Tablet Discont inued 325 MG PO Daily 2021 1:00am Augus 2021 1:21p m Losartan 25 mg tablet Discont inued 25 MG PO Daily 2021 1:00am 2021 7:18p m Nacl-Zn Ac-Vit B6-Citric Acid (Wound Cleanser) [place],Non-A erosol Discont inued 1 SPRAY IRRIGA TION Daily 2021 1:00am 2021 1:21p m Insulin Detemir U-100 (Levemir Flextouch U100 Insulin) 100 unit/mL (3 mL) insulin pen Discont inued 42 UNIT SUBCUT Every morning 2021 1:00am September 11, 2024 2:49p m Melatonin 5 mg Tablet Active 5 MG PO Bedtime as needed for Insomnia 2021 1:00am Unknown Potassium Chloride 20 mEq Tablet Extended Release Discont inued 20 MEQ PO Daily 2021 1:00am July 10, 2023 5:46p m Ferrous Sulfate 324 mg (65 mg iron) tablet,susi yed release (DR/EC) Discont inued 325 MG PO every Friday, Friday, and Friday 1:34pm October 21, 2022 12:42 pm Folic Acid 1 mg tablet Active 1 MG PO Daily November 14, 2021 12:00a m Unknown Loteprednol Etabonate 0.5 % Drops,Suspe nsion Discont inued 1 DROPS EYE-LE FT Four times daily November 14, 2021 12:00a m July 17, 2022 7:26a m Sodium Hypochlorit e (Dakin's Solution) 0.25 % Solution Discont inued 1 IRRIG TOPICA L Twice daily November 14, 2021 12:00a m Octob er 2021 4:06p m Furosemide 40 mg Tablet Discont inued 40 MG PO BID@0800,16 00 0 November 21, 2021 12:00a m Aprua 2023 9:36a m Polyethylen e Glycol 3350 (Miralax) 17 gram Powder In Packet Active 17 GM PO Daily 0 November 21, 2021 12:00a m Unknown Nifedipine 30 mg Tablet Extended Release 24 Hr Discont inued 30 MG PO Daily 0 November 21, 2021 12:00a m September 12, 2022 2:36p m Sodium Bicarbonate 650 mg Tablet Discont inued 650 MG PO Three times daily 0 November 21, 2021 12:00a m September 12, 2022 2:36p m Saccharomyc es Boulardii (Florastor) 250 mg Capsule Discont inued 250 MG PO Twice daily with meals 0 November 21, 2021 12:00a m October 21, 2022 12:42 pm Losartan 25 mg tablet Discont inued 50 MG PO Daily November 21, 2021 7:13pm October 21, 2022 12:42 pm Gabapentin 600 mg Tablet Discont inued 600 MG PO Every evening 0 November 21, 2021 12:00a m Janua 2023 9:36a m Vancomycin In Dextrose 5 % 1 gram/250 mL solution Discont inued 0 .ROUTE .COMPLEX 5000 November 21, 2021 12:00a m Octob er 2021 4:03p m For a TOTAL of 10 days of treatment Cephalexin 500 mg capsule Discont inued 500 MG PO Q6H 28 August 27, 2022 12:00a m September 12, 2022 2:32p m Sulfamethox azole-Trime thoprim (Bactrim Ds) 800-160 mg tablet Discont inued 1 TAB PO Q12H 14 August 27, 2022 12:00a m October 21, 2022 12:42 pm Ammonium Lactate 12 % lotion Active 1 APPLIC TOPICA L Daily October 22, 2022 12:00a m Unknown Levofloxaci n 750 mg Tablet Discont inued 750 MG PO Q24H October 24, 2022 12:00a m Octob er 2022 1:18p m Ferrous Sulfate (Ferosul) 325 mg (65 mg iron) tablet Active 325 MG PO Daily [facility] er 2022 1:00am Unknown Losartan 50 mg tablet Discont inued 50 MG PO Every morning [facility] er 2022 1:00am September 11, 2024 2:49p m Clonidine Hcl 0.1 mg tablet Discont inued 0.1 MG PO Twice daily [facility] er 2022 1:00am September 11, 2024 2:44p m Ergocalcife rol (Vitamin D2) 50,000 unit Tablet Active 84052 UNIT PO every week [facility] er 2022 1:00am Unknown Ascorbic Acid (Vitamin C) (Vitamin C) 500 mg Tablet Active 500 MG PO Daily [facility] er 2022 1:00am Unknown Sodium Bicarbonate 650 mg tablet Discont inued 650 MG PO Three times daily [facility] er 2022 12:33p m September 11, 2024 2:50p m Furosemide 40 mg tablet Discont inued 40 MG PO Twice daily 2023 9:35am September 14, 2024 1:10p m Gabapentin 600 mg tablet Discont inued 600 MG PO Daily at bedtime 2023 9:35am September 11, 2024 2:47p m Ondansetron 4 mg tablet,disi ntegrating Discont inued 4 MG PO Every 8 hours 12 4 September 09, 2024 12:00a m September 11, 2024 2:50p m Docusate Sodium 100 mg capsule Active 100 MG PO Daily as needed for constipatio n September 10, 2024 12:00a m Unknown Metoprolol Succinate 25 mg tablet extended release 24 hr Discont inued 12.5 MG PO Daily September 10, 2024 12:00a m September 14, 2024 1:10p m Calcium Acetate(Gerson sphat Bind) 667 mg capsule Active 667 MG PO THREE TIMES DAILY WITH MEALS September 11, 2024 12:00a m Unknown Gabapentin 300 mg capsule Active 300 MG PO Bedtime September 11, 2024 12:00a m Unknown Insulin Degludec (Tresiba Flextouch U-200) 200 unit/mL (3 mL) insulin pen Active 45 UNIT SUBCUT Daily September 11, 2024 12:00a m Unknown Levofloxaci n 500 mg Tablet Discont inued 500 MG PO Every 48 hours 4 7 September 14, 2024 12:00a m September 23, 2024 7:28a m Midodrine 5 mg tablet Active 5 MG PO Three times daily September 14, 2024 12:00a m do not give last dose of day after 6PM or within 4 hrs of bedtime Unknown IV Medications Medication Contents Directions Start Date Ertapenem [INVanz] 0.5 gm Ertapenem [INVanz], Sodium Chloride 0.9% 100 ml [0.9% Sodium Chloride 100 ml] 200 mls/hr IV Q24H November 21, 2021 12:00am Immunizations Immunization Event Date Not Given Reason Dose Number Perioperative Nurse Lot Number Vaccine Information Statement (VIS) Detail Administration Location COVID-19 mRNA-1273 (Moderna) August 03, 2020 COVID-19 mRNA-1273 (Moderna) September 05, 2020 COVID-19 mRNA-1273 (Moderna) February 20, 2021 Tetanus, Diphtheria, Pertussis (Tdap) September 15, 2024 [id number] [facility] Medical Equipment Device Date Implanted Device Details Double-lumen haemodialysis catheter, implantable August 05, 2023 SHELLEY: [id number] Issuing Agency: [facility] Device Id: [id number] Expiration Date: 2027-09-03 Lot Number: [id number] Synthetic vascular graft April 16, 2023 SHELLEY: [id number] Issuing Agency: [facility] Device Id: [id number] Expiration Date: 2026-06-21 Serial Number: [id number] Polymeric ureteral stent May 25, 2020 SHELLEY : [id number] Issuing Agency: [facility] Device Id: [id number] Expiration Date: 2022-12-20 Lot Number: [id number] Polymeric ureteral stent May 25, 2020 SHELLEY : [id number] Issuing Agency: [facility] Device Id: [id number] Expiration Date: 2023-02-07 Lot Number: [id number] Procedures Procedure Date Performed Status XR tibia fibula RT 2V* September 15, 2024 10:37pm c ompleted XR chest 2V* September 10, 2024 5:30pm completed CT abdomen pelvis wo con September 10, 2024 5:46pm c ompleted CT head/brain wo con September 10, 2024 5:46pm compl eted CT angio chest PE protocol September 10, 2024 8:00pm completed XR foot BI 3V September 11, 2024 8:20am completed US arterial pvr rest LE September 11, 2024 11:57am c ompleted Blood Culture September 10, 2024 completed Blood Culture September 10, 2024 completed Superficial Wound Culture September 10, 2024 comple lakesha Superficial Wound Culture September 10, 2024 comple [place] Performance of Urinary Filtr ation, Intermittent, Less than 6 Hours Per Day September 10, 2024 active Relevant Diagnostic Tests and/or Laboratory Data Laboratory Results Test Collection Date/Time Result Date/Time Result Interpretation Reference Range Result Comment Performing Site Correcte d White Blood Count September 09, 2024 5:44pm September 09, 2024 6:00pm 25.1 10*3/uL Above high normal 4.1-10.5 [facility] [id number] [address] [place], [place] [id number] Correcte d White Blood Count September 14, 2024 6:42am September 14, 2024 7:39am 14.1 10*3/uL Above high normal 4.1-10.5 [facility] [id number] [address] [facility] [address] Uncorrec [place] WBC Count September 09, 2024 5:44pm September 09, 2024 6:00pm 25.1 10*3/uL Above high normal 4.1-10.5 [facility] [id number] [address] [facility] [address] Uncorrec lakesha WBC Count September 14, 2024 6:42am September 14, 2024 7:39am 15.7 10*3/uL Above high normal 4.1-10.5 [facility] [id number] [address] [place] [address] Red Blood Count September 09, 2024 5:44pm September 09, 2024 6:00pm 2.71 10*6/uL Below low normal 3.90-5.60 [facility] [id number] [address] [place] [address] Red Blood Count September 14, 2024 6:42am September 14, 2024 7:39am 2.93 10*6/uL Below low normal 3.90-5.60 [facility] [id number] [address] [place] [address] Hemoglob in September 09, 2024 5:44pm September 09, 2024 6:00pm 10.0 g/dL Below low normal 13.0-17.0 [facility] [id number] [address] [place] [address] Hemoglob in September 14, 2024 6:42am September 14, 2024 7:39am 9.8 g/dL Below low normal 13.0-17.0 [facility] [id number] [address] [place] [address] Hematocr it September 09, 2024 5:44pm September 09, 2024 6:00pm 27.4 % Below low normal 38.8-50.0 [facility] [id number] [address] [place] [address] Hematocr it September 14, 2024 6:42am September 14, 2024 7:39am 30.7 % Below low normal 38.8-50.0 [facility] [id number] [address] [facility] [address] Mean Corpuscu lar Volume September 09, 2024 5:44pm September 09, 2024 6:00pm 101.1 fL Above high normal 83.5-101 [facility] [id number] [address] [facility] [address] Mean Corpuscu lar Volume September 14, 2024 6:42am September 14, 2024 7:39am 104.7 fL Above high normal 83.5-101 [facility] [id number] [address] [facility] [address] Mean Corpuscu lar Hemoglob in September 09, 2024 5:44pm September 09, 2024 6:00pm 36.7 pg Above high normal 27.5-35.2 [facility] [id number] [address] [facility] [address] Mean Corpuscu lar Hemoglob in September 14, 2024 6:42am September 14, 2024 7:39am 33.5 pg 27.5-35.2 [facility] [id number] [address] [facility] [address] Mean Corpuscu lar Hemoglob in Concent September 09, 2024 5:44pm September 09, 2024 6:00pm 36.3 g/dL Above high normal 32.5-35.6 [facility] [id number] [address] [place] [address] Mean Corpuscu lar Hemoglob in Concent September 14, 2024 6:42am September 14, 2024 7:39am 32.0 g/dL Below low normal 32.5-35.6 [facility] [id number] [address] [facility] [address] Red Cell Distribu tion Width September 09, 2024 5:44pm September 09, 2024 6:00pm 16.7 % Above high normal 12.0-14.8 [facility] [id number] [address] [facility] [address] Red Cell Distribu tion Width September 14, 2024 6:42am September 14, 2024 7:39am 17.6 % Above high normal 12.0-14.8 [facility] [id number] [address] [facility] [address] Platelet Count September 09, 2024 5:44pm September 09, 2024 6:00pm 260 10*3/uL 150-450 [facility] [id number] [address] [facility] [address] Platelet Count September 14, 2024 6:42am September 14, 2024 7:39am 289 10*3/uL 150-450 [facility] [id number] [address] [facility] [address] Mean Platelet Volume September 09, 2024 5:44pm September 09, 2024 6:00pm 10.3 fL Above high normal 6.6-10.1 [facility] [id number] [address] [facility] [address] Mean Platelet Volume September 14, 2024 6:42am September 14, 2024 7:39am 10.1 fL 6.6-10.1 [facility] [id number] [address] [facility] [address] Monocyte Distribu tion Width September 09, 2024 5:44pm September 09, 2024 7:07pm 29.89 % Above high normal 0.00-20.00 The predictive value of MDW for identifying sepsis in patients with hematologic al abnormaliti es has not been established [facility] [id number] [address] [facility] [address] Neutroph ils (%) (Auto) September 09, 2024 5:44pm September 09, 2024 7:07pm N/A [facility] [id number] [address] [facility] [address] Neutroph ils (%) (Auto) September 14, 2024 6:42am September 14, 2024 8:12am N/A [facility] [id number] [address] [facility] [address] Lymphocy tierra (%) (Auto) September 09, 2024 5:44pm September 09, 2024 7:07pm N/A [facility] [id number] [address] [facility] [address] Lymphocy tierra (%) (Auto) September 14, 2024 6:42am September 14, 2024 8:12am N/A [facility] [id number] [address] [facility] [address] Monocyte s (%) (Auto) September 09, 2024 5:44pm September 09, 2024 7:07pm N/A [facility] [id number] [address] [facility] [address] Monocyte s (%) (Auto) September 14, 2024 6:42am September 14, 2024 8:12am N/A [facility] [id number] [address] [facility] [address] Eosinoph ils (%) (Auto) September 09, 2024 5:44pm September 09, 2024 7:07pm N/A [facility] [id number] [address] [facility] [address] Eosinoph ils (%) (Auto) September 14, 2024 6:42am September 14, 2024 8:12am N/A [facility] [id number] [address] [facility] [address] Basophil s (%) (Auto) September 09, 2024 5:44pm September 09, 2024 7:07pm N/A [facility] [id number] [address] [facility] [address] Basophil s (%) (Auto) September 14, 2024 6:42am September 14, 2024 8:12am N/A [facility] [id number] [address] [facility] [address] Nucleate d RBC Relative Count (auto) September 09, 2024 5:44pm September 09, 2024 7:07pm N/A [facility] [id number] [address] [facility] [address] Nucleate d RBC Relative Count (auto) September 14, 2024 6:42am September 14, 2024 8:12am N/A [facility] [id number] [address] [facility] [address] Neutroph ils # (Auto) September 09, 2024 5:44pm September 09, 2024 7:07pm N/A [facility] [id number] [address] [facility] [address] Neutroph ils # (Auto) September 14, 2024 6:42am September 14, 2024 8:12am N/A [facility] [id number] [address] [facility] [address] Lymphocy tierra # (Auto) September 09, 2024 5:44pm September 09, 2024 7:07pm N/A [facility] [id number] [address] [facility] [address] Lymphocy tierra # (Auto) September 14, 2024 6:42am September 14, 2024 8:12am N/A [facility] [id number] [address] [facility] [address] Monocyte s # (Auto) September 09, 2024 5:44pm September 09, 2024 7:07pm N/A [facility] [id number] [address] [facility] [address] Monocyte s # (Auto) September 14, 2024 6:42am September 14, 2024 8:12am N/A [facility] [id number] [address] [facility] [address] Eosinoph ils # (Auto) September 09, 2024 5:44pm September 09, 2024 7:07pm N/A [facility] [id number] [address] [facility] [address] Eosinoph ils # (Auto) September 14, 2024 6:42am September 14, 2024 8:12am N/A [facility] [id number] [address] [facility] [address] Basophil s # (Auto) September 09, 2024 5:44pm September 09, 2024 7:07pm N/A [facility] [id number] [address] [facility] [address] Basophil s # (Auto) September 14, 2024 6:42am September 14, 2024 8:12am N/A [facility] [id number] [address] [facility] [address] Segmente d Neutroph ils September 09, 2024 5:44pm September 09, 2024 7:07pm 78 % Above high normal 50-70 [facility] [id number] [address] [place] [address] Segmente d Neutroph ils September 14, 2024 6:42am September 14, 2024 8:12am 59 % 50-70 [facility] [id number] [address] [facility] [address] Band Neutroph ils % September 09, 2024 5:44pm September 09, 2024 7:07pm 4 % 0-5 [facility] [id number] [address] [place] [address] Band Neutroph ils % September 12, 2024 6:00am September 12, 2024 7:36am 1 % 0-5 [facility] [id number] [address] [facility] [address] Lymphocy tierra % September 09, 2024 5:44pm September 09, 2024 7:07pm 10 % Below low normal 18-42 [facility] [id number] [address] [facility] [address] Lymphocy tierra % September 14, 2024 6:42am September 14, 2024 8:12am 21 % 18-42 [facility] [id number] [address] [facility] [address] Reactive Lymphocy tierra September 09, 2024 5:44pm September 09, 2024 7:07pm 1 % 0-12 [facility] [id number] [address] [facility] [address] Monocyte s % September 09, 2024 5:44pm September 09, 2024 7:07pm 5 % 2-11 [facility] [id number] [address] [facility] [address] Monocyte s % September 14, 2024 6:42am September 14, 2024 8:12am 13 % Above high normal 2-11 [facility] [id number] [address] [facility] [address] Eosinoph ils % September 09, 2024 5:44pm September 09, 2024 7:07pm 1 % 1-3 [facility] [id number] [address] [facility] [address] Eosinoph ils % September 14, 2024 6:42am September 14, 2024 8:12am 6 % Above high normal 1-3 [facility] [id number] [address] [facility] [address] Basophil s % September 09, 2024 5:44pm September 09, 2024 7:07pm 0 % 0-2 [facility] [id number] [address] [facility] [address] Basophil s % September 12, 2024 6:00am September 12, 2024 7:36am 1 % 0-2 [facility] [id number] [address] [facility] [address] Metamyel ocytes % September 14, 2024 6:42am September 14, 2024 8:12am 1 % Above high normal 0-0 [facility] [id number] [address] [facility] [address] Myelocyt es % September 13, 2024 6:27am September 13, 2024 8:48am 2 % Above high normal 0-0 [facility] [id number] [address] [place] [address] Nucleate d Red Blood Cells/10 0 WBC September 09, 2024 5:44pm September 09, 2024 7:07pm 3 /100{WBC} Above high normal 0-0 [facility] [id number] [address] [facility] [address] Nucleate d Red Blood Cells/10 0 WBC September 14, 2024 6:42am September 14, 2024 8:12am 18 /100{WBC} Above high normal 0-0 [facility] [id number] [address] [facility] [address] Other Cell Type September 09, 2024 5:44pm September 09, 2024 7:07pm 1 % Above high normal 0-0 [facility] [id number] [address] [place] [address] Red Blood Cell Morpholo gy September 09, 2024 5:44pm September 09, 2024 7:07pm N/A [facility] [id number] [address] [place] [address] Red Blood Cell Morpholo gy September 14, 2024 6:42am September 14, 2024 8:12am N/A [facility] [id number] [address] [facility] [address] Polychro masia September 09, 2024 5:44pm September 09, 2024 7:07pm Slight [facility] [id number] [address] [place] [address] Polychro masia September 14, 2024 6:42am September 14, 2024 8:12am Moderate [facility] [id number] [address] [place] [address] Poikiloc ytosis September 09, 2024 5:44pm September 09, 2024 7:07pm Slight [facility] [id number] [address] [place] [address] Poikiloc ytosis September 12, 2024 6:00am September 12, 2024 7:36am Slight [facility] [id number] [address] [facility] [place] [address] Basophil ic Stipplin g September 13, 2024 6:27am September 13, 2024 8:48am Slight [facility] [id number] [address] [facility] [place] [address] Anisocyt osis September 09, 2024 5:44pm September 09, 2024 7:07pm Moderate [facility] [id number] [address] [facility] [place] [address] Anisocyt osis September 14, 2024 6:42am September 14, 2024 8:12am Moderate [facility] [id number] [address] [place] [address] Macrocyt osis September 09, 2024 5:44pm September 09, 2024 7:07pm Slight [facility] [id number] [address] [place] [address] Macrocyt osis September 14, 2024 6:42am September 14, 2024 8:12am Slight [facility] [id number] [address] [facility] [place] [address] Schistoc ytes September 14, 2024 6:42am September 14, 2024 8:12am Slight [facility] [id number] [address] [place] [address] Target Cells September 14, 2024 6:42am September 14, 2024 8:12am Slight [facility] [id number] [address] [place] [address] Tear Drop Cells September 09, 2024 5:44pm September 09, 2024 7:07pm [facility] [id number] [address] [place] [address] Tear Drop Cells September 12, 2024 6:00am September 12, 2024 7:36am Slight [facility] [id number] [address] [place] [address] Ovalocyt es September 10, 2024 5:59pm September 10, 2024 7:10pm [facility] [id number] [address] [place] [address] Acanthoc ytes September 14, 2024 6:42am September 14, 2024 8:12am [facility] [id number] [address] [place] [address] Platelet Estimate September 09, 2024 5:44pm September 09, 2024 7:07pm Normal Normal [facility] [id number] [address] [facility] [address] Platelet Estimate September 14, 2024 6:42am September 14, 2024 8:12am Normal Normal [facility] [id number] [address] [facility] [address] Platelet Morpholo gy Comment September 09, 2024 5:44pm September 09, 2024 7:07pm N/A [facility] [id number] [address] [facility] [address] Platelet Morpholo gy Comment September 14, 2024 6:42am September 14, 2024 8:12am N/A [facility] [id number] [address] [facility] [address] Large Platelet s September 14, 2024 6:42am September 14, 2024 8:12am Slight [facility] [id number] [address] [facility] [address] Erythroc yte Sediment ation Rate September 11, 2024 6:25am September 11, 2024 9:35am > 130 mm/hr Above high normal 0-19 [facility] [id number] [address] [facility] [address] Glucose Level September 09, 2024 5:44pm September 09, 2024 7:01pm 159 mg/dL Above high normal 70-100 Lipemia is present at a level that could interfere with the result.Hemo lysis is present at a level that could interfere with the result.ADA recommended reference rangeRandom Glucose Reference Range is dependent on time and content of last meal. Glucose of more than 200 mg/dL in a nonstressed , ambulatory subject supports the diagnosis of Diabetes Mellitus. [facility] [id number] [address] [facility] [address] Glucose Level September 14, 2024 6:42am September 14, 2024 7:40am 94 mg/dL 70-100 ADA recommended reference rangeRandom Glucose Reference Range is dependent on time and content of last meal. Glucose of more than 200 mg/dL in a nonstressed , ambulatory subject supports the diagnosis of Diabetes Mellitus. [facility] [id number] [address] [facility] [address] Blood Urea Nitrogen September 09, 2024 5:44pm September 09, 2024 7:01pm 53 mg/dL Above high normal 7-25 Lipemia is present at a level that could interfere with the result.Hemo lysis is present at a level that could interfere with the result. [facility] [id number] 1[address] [facility] [address] Blood Urea Nitrogen September 14, 2024 6:42am September 14, 2024 7:40am 46 mg/dL Above high normal 7 [facility] [id number] [address] [facility] [address] Creatini ne September 09, 2024 5:44pm September 09, 2024 7:01pm 7.71 mg/dL Above high normal 0.70-1.30 Hemolysis is present at a level that could interfere with the result.Ann ishmael is present at a level that could interfere with the result. [facility] [id number] [address] [facility] [address] Creatini ne September 14, 2024 6:42am September 14, 2024 7:40am 7.98 mg/dL Significant change up 0.70-1.30 Delta: 10.14 on 09/13/24-10 01 [facility] [id number] [address] [facility] [address] Estimate d GFR (CKD-EPI ) September 09, 2024 5:44pm September 09, 2024 7:01pm 6.809 mL/Min [facility] [id number] [address] [facility] [address] Estimate d GFR (CKD-EPI ) September 14, 2024 6:42am September 14, 2024 7:40am 6.533 mL/Min [facility] [id number] [address] [facility] [address] Sodium Level September 09, 2024 5:44pm September 09, 2024 7:01pm 130 mmol/L Below low normal 136-145 Lipemia is present at a level that could interfere with the result.Hemo lysis is present at a level that could interfere with the result. [facility] [id number] [address] [facility] [address] Sodium Level September 14, 2024 6:42am September 14, 2024 7:40am 132 mmol/L Below low normal 136-145 [facility] [id number] [address] [place] [address]4470 Potassiu m Level September 09, 2024 5:44pm September 09, 2024 7:01pm 3.9 mmol/L 3.5-5.1 Lipemia is present at a level that could interfere with the result.Hemo lysis is present at a level that could interfere with the result. [facility] [id number] [address] [facility] [address] Potassiu m Level September 14, 2024 6:42am September 14, 2024 7:40am 4.0 mmol/L 3.5-5.1 Hemolysis is present at a level that could interfere with the result. [facility] [id number] 1[address] [facility] [address] Potassiu m Level October 11, 2024 12:20pm October 11, 2024 1:44pm 2.8 mmol/L Below lower panic limits 3.5-5.1 Critical Result Called to and read back by: QUIN CADRONA at: 10/11/2024 13:46:45 by:HUBER [facility] [id number] [address] [place] [address] Chloride Level September 09, 2024 5:44pm September 09, 2024 7:01pm 88 mmol/L Below low normal 98-107 Lipemia is present at a level that could interfere with the result.Hemo lysis is present at a level that could interfere with the result. [facility] [id number] [address] [facility] [address] Chloride Level September 14, 2024 6:42am September 14, 2024 7:40am 98 mmol/L 98-107 [facility] [id number] 1[address] [facility] [address] Carbon Dioxide Level September 09, 2024 5:44pm September 09, 2024 7:01pm 33.2 mmol/L Above high normal 21.0-31.0 Hemolysis is present at a level that could interfere with the result.Ann ishmael is present at a level that could interfere with the result. [facility] [id number] 1[address] [facility] [address] Carbon Dioxide Level September 14, 2024 6:42am September 14, 2024 7:40am 23.2 mmol/L 21.0-31.0 [facility] [id number] [address] [place], [place] [address] [place] [address] Anion Gap September 09, 2024 5:44pm September 09, 2024 7:01pm 12.7 mEq/L 6.0-15.0 [facility] [id number] 1[address] [facility] [address] Anion Gap September 14, 2024 6:42am September 14, 2024 7:40am 14.8 mEq/L 6.0-15.0 [facility] [id number] [address] [place], [place] [address] Calcium Level September 09, 2024 5:44pm September 09, 2024 7:01pm 9.0 mg/dL 8.6-10.3 Hemolysis is present at a level that could interfere with the result.Ann ishmael is present at a level that could interfere with the result. [facility] [id number] 1[address] [facility] [address] Calcium Level September 14, 2024 6:42am September 14, 2024 7:40am 8.6 mg/dL 8.6-10.3 [facility] [id number] [address] [place] [address] Phosphor us Level September 11, 2024 6:25am September 11, 2024 7:52am 5.8 mg/dL Above high normal 2.5-4.5 Hemolysis is present at a level that could interfere with the result. [facility] [id number] [address] [place] [address] Magnesiu m Level September 11, 2024 6:25am September 11, 2024 7:52am 2.2 mg/dL 1.9-2.7 Hemolysis is present at a level that could interfere with the result. [facility] [id number] [address] [facility] [address] Total Protein September 09, 2024 5:44pm September 09, 2024 7:01pm 10.1 g/dL Above high normal 6.4-8.9 Lipemia is present at a level that could interfere with the result.Hemo lysis is present at a level that could interfere with the result. [facility] [id number] 1[address] [facility] [address]755 Total Protein September 14, 2024 6:42am September 14, 2024 7:40am 8.2 g/dL 6.4-8.9 [facility] [id number] [address] [facility] [address] Albumin September 09, 2024 5:44pm September 09, 2024 7:01pm 4.4 g/dL 3.5-5.7 Lipemia is present at a level that could interfere with the result.Hemo lysis is present at a level that could interfere with the result. [facility] [id number] [address] [facility] [address] Albumin September 14, 2024 6:42am September 14, 2024 7:40am 3.5 g/dL 3.5-5.7 [facility] [id number] 1[address] [facility] [address]99 Globulin September 09, 2024 5:44pm September 09, 2024 7:01pm 5.7 g/dL [facility] [id number] [address] [place] [address] Globulin September 14, 2024 6:42am September 14, 2024 7:40am 4.7 g/dL [facility] [id number] [address] [place] [address] Albumin/ Globulin Ratio September 09, 2024 5:44pm September 09, 2024 7:01pm 0.8 [facility] [id number] [address] [facility] [address] Albumin/ Globulin Ratio September 14, 2024 6:42am September 14, 2024 7:40am 0.7 [facility] [id number] [address] [facility] [address] Total Bilirubi n September 09, 2024 5:44pm September 09, 2024 7:01pm 2.1 mg/dL Above high normal 0.3-1.0 Lipemia is present at a level that could interfere with the result.Hemo lysis is present at a level that could interfere with the result.Samp les from patients who have taken Naproxen have shown spurious elevation in Total Bilirubin levels. A metabolite of Naproxen, O-desmethyl naproxen, has been shown to interfere with the Jendrcareyik- Grof method for measuring Total Bilirubin. [facility] [id number] [address] [facility] [address] Total Bilirubi n September 14, 2024 6:42am September 14, 2024 7:40am 1.1 mg/dL Above high normal 0.3-1.0 [facility] [id number] [address] [facility] [address]10 Aspartat e Amino Transf (AST/SGO T) September 09, 2024 5:44pm September 09, 2024 7:01pm 308 U/L Above high normal 13-39 Hemolysis is present at a level that could interfere with the result.Ann ishmael is present at a level that could interfere with the result. [facility] [id number] [address] [facility] [address] Aspartat e Amino Transf (AST/SGO T) September 14, 2024 6:42am September 14, 2024 7:40am 58 U/L Above high normal 13-39 Hemolysis is present at a level that could interfere with the result. [facility] [id number] [address] [facility] [address] Alanine Aminotra nsferase (ALT/SGP T) September 09, 2024 5:44pm September 09, 2024 7:01pm 30 U/L 7-52 Hemolysis is present at a level that could interfere with the result.Ann ishmael is present at a level that could interfere with the result. [facility] [id number] 1[address] [facility] [address] Alanine Aminotra nsferase (ALT/SGP T) September 14, 2024 6:42am September 14, 2024 7:40am 12 U/L 7-52 [facility] [id number] [address] [facility] [address] Alkaline Phosphat ase September 09, 2024 5:44pm September 09, 2024 7:01pm 82 U/L 34-104 Hemolysis is present at a level that could interfere with the result.Ann ishmael is present at a level that could interfere with the result. [facility] [id number] 1[address] [facility] [address] Alkaline Phosphat ase September 14, 2024 6:42am September 14, 2024 7:40am 104 U/L 34-104 [facility] [id number] [address] [facility] [address] Lipase September 09, 2024 5:44pm September 09, 2024 7:01pm 1167.0 U/L Above high normal 11.0-82.0 Lipemia is present at a level that could interfere with the result.Hemo lysis is present at a level that could interfere with the result. [facility] [id number] [address] [facility] [address]651 Lipase September 10, 2024 5:59pm September 10, 2024 7:12pm 664.0 U/L Above high normal 11.0-82.0 [facility] [id number] 1[address] [facility] [address] Lactic Acid Level September 10, 2024 5:59pm September 10, 2024 6:29pm See comment 0.5-1.9 Specimen hemolyzed/s everely ictericLact ic Acid reference range has been updated to 0.5 1.9 mmol/L and the critical range of 2.0 or greater. [facility] [id number] [address] [place] [address] Total Creatine Kinase September 11, 2024 6:25am September 11, 2024 7:49am 3169 U/L Above high normal 30-223 Hemolysis is present at a level that could interfere with the result. [facility] [id number] [address] [place] [address] Troponin I High Sensitiv ity September 11, 2024 6:25am September 11, 2024 7:22am 263 ng/L Above upper panic limits 0-20 Critical Result : Called to and read back by: JOHANNY ROJAS at: 09/11/2024 07:25:49 by:MLGThe Troponin units of report have been changed to meet the Chest Pain Accreditati on requirement , element EC5.M1l2. Troponin units are changed from pg/ml to ng/L. Also, the decimal is removed and results are in whole numbers. [facility] [id number] [address] [facility] [address] C-Reacti ve Protein, Quantita tive September 13, 2024 6:27am September 13, 2024 7:16am 7.4 mg/dL Above high normal 0.0-0.5 [facility] [id number] [address] [place] [address] Pharmacy Creatini ne Clearanc e (Chem September 09, 2024 5:44pm September 09, 2024 7:01pm 9.77 [facility] [id number] [address] [facility] [address] Pharmacy Creatini ne Clearanc e (Chem September 14, 2024 6:42am September 14, 2024 7:40am 10.23 [facility] [id number] [address] [place] [address] Hemoglob in A1c September 11, 2024 6:25am September 11, 2024 12:19pm 7.8 % Above high normal 4.3-5.6 Increased risk for diabetes: 5.7 - 6.4diabetes : >6.4glycemi c control for adults with diabetes: <7.0 [facility] [id number] [address] [place] [address] Estimate d Average Glucose September 11, 2024 6:25am September 11, 2024 12:19pm 177 mg/dL [facility] [id number] [address] [place] [address] Bedside Glucose September 14, 2024 11:27am September 14, 2024 11:28am 233 mg/dL Random Glucose Reference Range is dependent on time and content of last meal. Glucose of more than 200 mg/dL in a nonstressed , ambulatory subject supports the diagnosis of Diabetes Mellitus. Point of Care testing Clostrid ium difficil e Toxin B Gene September 12, 2024 6:50am September 12, 2024 8:41am Negative Negative Testing performed by RT-PCR [facility] [id number] [address] [place] [address] Stool Shigella PCR September 12, 2024 6:50am September 12, 2024 9:22am Negative Negative Shigella sp. test includes Shigella species and Enteroinvas jordin E. coli (EIEC). [facility] [id number] [address] [facility] [address] Stool Shiga Toxin (PCR)([facility]) September 12, 2024 6:50am September 12, 2024 9:22am Negative Negative [facility] [id number] [address] [place] [address] Stool Campylob acter (PCR)([facility]) September 12, 2024 6:50am September 12, 2024 9:22am Negative Negative Campylobact er test includes C. jejuni and C. coli. [facility] [id number] [address] [facility] [address] Stool Salmonel la (PCR)([facility]) September 12, 2024 6:50am September 12, 2024 9:22am Negative Negative Testing performed by RT-PCR [facility] [id number] [address] [facility] [address] Microbiology Results Procedure Source Result Collection Date/Time Result Date/Time Result Comment Performing Site Blood Culture Blood, Left Forearm NO GROWTH 5 DAYS September 10, 2024 5:59pm September 15, 2024 6:07pm [facility] [id number] [address] [facility] [address] Blood Culture Blood, Left Hand NO GROWTH 5 DAYS September 10, 2024 6:50pm September 15, 2024 6:53pm [facility] [id number] [address] [facility] [address] Superficial Wound Culture Foot,Right , Other Staphylococcus aureus September 10, 2024 11:59pm September 14, 2024 9:35am [facility] [id number] [address] [facility] [address] Foot,Right , Other Proteus mirabilis September 10, 2024 11:59pm September 14, 2024 9:35am [facility] [id number] [address] [facility] [address] Foot,Right , Other Pseudomonas aeruginosa September 10, 2024 11:59pm September 14, 2024 9:35am [facility] [id number] [address] [facility] [address] Foot,Right , Other Escherichia coli September 10, 2024 11:59pm September 14, 2024 9:35am [facility] [id number] [address] [facility] [address] Superficial Wound Culture Foot,Left, Middle Staphylococcus aureus September 10, 2024 11:59pm September 13, 2024 11:05am [facility] [id number] [address] [facility] [address] Foot,Left, Middle Escherichia coli September 10, 2024 11:59pm September 13, 2024 11:05am [facility] [id number] [address] [facility] [address] Foot,Left, Middle Proteus mirabilis September 10, 2024 11:59pm September 13, 2024 11:05am [facility] [id number] [address] [place], [place] [address] Diagnostic Imaging Reports Author Fawad Nicholson [facility] Authored September 10, 2024 6:24p m Report Dictated Date/Time Dictated By Status Radiology Report September 10, 2024 6:24pm Fawad Nicholson DO completed [facility] Main [place] [id number] XRay Report Signed Patient: Lonny Lott MR#: [id number] : 1950 Acct:[id number] Age/Sex: 74 / M ADM Date: 5 Loc: Room: [address] [place] [address] Type: DIS IN Attending Dr: Julian Jones MD Copies to: DO Julian Siddiqui MD~ Ordering Provider: Mervin Segovia DO Date of Service: 09/10/24 XR/XR chest 2V*: Altered Mental Status Plain film chest 2 view HISTORY: Nausea and vomiting COMPARISON: 11/21/2021 FINDINGS: SUPPORT DEVICES: None POSTSURGICAL CHANGES: None HEART: Within normal limits PULMONARY YANDEL: Within normal limits MEDIASTINUM: Unremarkable LUNGS AND PLEURA: No acute lung process, pleural effusion or pneumothorax identified. BONY STRUCTURES: Similar scoliosis and degenerative change ADDITIONAL FINDINGS None XR/XR chest 2V* IMPRESSION: No acute process. Impression dictated by: Fawad Nicholson M.D. 09/10/2024 6:24 PM Dictation Location: [place] [address] Transcribed By: [facility] 09/10/241823 Dictated By: Fawad Nicholson DO 09/10/24 182 Signed By: <Electronically signed by Fawad Nicholson DO in OV> 09/10/24 182 Author Fawad Nicholson [facility] Authored September 10, 2024 6:26p m Report Dictated Date/Time Dictated By Status Radiology Report September 10, 2024 6:26pm Fawad Nicholson DO completed [facility] [address] [address] [address] Scan Report Signed Patient: Lonny Lott MR#: [id number] : 1950 Acct:[id number] Age/Sex: 74 / M ADM Date: 5 Loc: 3T Room: [address] [place] [address] Type: DIS IN Attending Dr: Julian Jones MD Copies to: DO Julian Siddiqui MD~ Ordering Provider: Mervin Segovia DO Date of Service: 09/10/24 CT/CT head/brain wo con: nausea Unenhanced head CT TECHNIQUE: Contiguous axial imaging of the head. The CT exam was performed using one or more the following dose reduction techniques: Automated exposure control, adjustment of the MA and/or Kv according to patient size, or use of the iterative reconstruction technique. COMPARISON: 05/25/2020 HISTORY: Altered mental status. Dialysis today VENTRICLES: Within normal limits ATROPHY: Diffuse atrophy BRAIN PARENCHYMA: Decreased density of the white matter is most consistent with chronic small vessel disease. HEMORRHAGE: None HERNIATION: No mass effect or herniation INFARCTION: No recent vascular distribution infarction is seen. EXTRA-AXIAL FLUID COLLECTIONS None MIDBRAIN: Unremarkable BA: Unremarkable MEDULLA: Unremarkable SINUSES: Unremarkable ORBITS: Grossly unremarkable MASTOIDS: Unremarkable BONY STRUCTURES Intact ADDITIONAL FINDINGS: CT/CT head/brain wo con IMPRESSION: No acute findings. Impression dictated by: Fawad Nicholson M.D. 09/10/2024 6:28 PM Dictation Location: [place] [address] Transcribed By: [facility] 09/10/24 182 Dictated By: Fawad Nicholson DO 09/10/24 182 Signed By: <Electronically signed by Fawad Nicholson DO in OV> 09/10/241827 Author Fawad Nicholson [facility] Authored September 10, 2024 6:29p m Report Dictated Date/Time Dictated By Status Radiology Report September 10, 2024 6:29pm Fawad Nicholson DO completed [facility] [place] [address] CT Scan Report Signed Patient: Lonny Lott MR#: [id number] : 1950 Acct:[id number] Age/Sex: 74 / M ADM Date: 5 Loc: 3T Room: [address] [place] [address] Type: DIS IN Attending Dr: Julian Jones MD Copies to: DO Julian Siddiqui MD~ Ordering Provider: Mervin Segovia DO Date of Service: 09/10/24 CT/CT abdomen pelvis wo con: nausea, abd pain CT Abdomen and Pelvis withoutcontrast TECHNIQUE: Axial imaging with 2-D reconstruction. . The CT exam was performed using one or more the following dose reduction techniques: Automated exposure control, adjustment of the MA and/or Kv according to patient size, or use of the iterative reconstruction technique. COMPARISON: 07/17/2022 History: Altered mental status. Dialysis the day. LIMITATIONS: None LOWER THORAX Unremarkable LIVER: Liver cirrhosis. Calcified granulomas the liver. GALLBLADDER: No gallbladder abnormality identified. BILE DUCTS: No dilatation SPLEEN: Splenectomy PANCREAS: Unremarkable ADRENAL GLANDS: Unremarkable KIDNEYS:Nonobstructing left nephrolithiasis. Similar dilatation of the intrarenal collecting system and proximal ureter on the left. No obstructing stone. AORTA: No abdominal aortic aneurysm identified. Atherosclerosis RETROPERITONEUM: No significant retroperitoneal abnormalities identified. MESENTERY:Unremarkable SMALL BOWEL: The small bowel loops are nondistended. APPENDIX: The appendix is normal. COLON: Diverticulosis URINARY BLADDER: Urinary bladder is unremarkable. REPRODUCTIVE SYSTEM: Reproductive structures are unremarkable. PNEUMOPERITONEUM: None PERITONEAL FLUID:None BONY STRUCTURES: Degenerative change ABDOMINAL WALL: Mildly prominent inguinal lymph nodes redemonstrated. CT/CT abdomen pelvis wo con IMPRESSION: Similar prominence of the left intrarenal collecting system and proximal ureter. No obstructing stone. Percutaneous nephrostomy tube no longer present. Liver cirrhosis. Renal atrophy with focal scarring. No acute findings. Impression dictated by: Fawad Nicholson M.D. 09/10/2024 6:36 PM Dictation Location: [facility]--20 Transcribed By: [facility] 09/10/241835 Dictated By: Fawad Nicholson DO 09/10/241828 Signed By: <Electronically signed by Fawad Nicholson DO in OV> 09/10/241835 Author Fawad Nicholson [facility] Authored September 10, 2024 8:44p m Report Dictated Date/Time Dictated By Status Radiology Report September 10, 2024 8:44pm Fawad Nicholson DO completed [facility] Main [place] [address] [place] [address] CT Scan Report Signed Patient: Lonny Lott MR#: [id number] : 1950 Acct:[id number] Age/Sex: 74 / M ADM Date: 5 Loc: 3T Room: [address] [place] [address] Type: DIS IN Attending Dr: Julian Jones MD Copies to: DO Julian Siddiqui MD~ Ordering Provider: Mervin Segovia DO Date of Service: 09/10/24 CT/CT angio chest PE protocol: nausea, hypoxia/tachycardia CTA Chest with PE protocol TECHNIQUE: Axial imaging with 2-D and 3-D reconstruction. 90cc of Isovue-[address] exam was performed using one or more the following dose reduction techniques: Automated exposure control, adjustment of the MA and/or Kv according to patient size, or use of the iterative reconstruction technique. History: Altered mental status. Dialysis patient COMPARISON: None THYROID: Unremarkable TRACHEA AND BRONCHI: Patent ESOPHAGUS: Unremarkable. HEART: Within normal limits PERICARDIAL EFFUSION: None CORONARY ARTERY CALCIFICATION: None MEDIASTINUM: No adenopathy. No pneumoperitoneum. No mediastinal hematoma. PULMONARY YANDEL: No hilar mass or adenopathy is seen. THORACIC AORTA Unremarkable PULMONARY EMBOLUS: None LUNG NODULE None LUNGS: Mild atelectasis PLEURAL EFFUSION: None PNEUMOTHORAX: No pneumothorax seen. CHEST WALL: No abnormality AXILLA: Unremarkable BONY STRUCTURES about moderate scoliosis UPPER ABDOMEN: Images of the upper abdomen are noncontributory. CT/CT angio chest PE protocol IMPRESSION: No acute pulmonary embolus. Impression dictated by: Fawad Nicholson M.D. 09/10/2024 8:47 PM Dictation Location: [place] [address] Transcribed By: [facility] 09/10/242046 Dictated By: Fawad Nicholson DO 09/10/242043 Signed By: <Electronically signed by Fawad Nicholson DO in OV> 09/10/242046 Author Leobardo Saenz [facility] Authored September 11, 2024 12:58 pm Report Dictated Date/Time Dictated By Status Radiology Report September 11, 2024 12:58pm Leobardo Saenz MD completed [facility] Main [place] [address] [place] [address] XRay Report Signed Patient: Lonny Lott MR#: [id number] : 1950 Acct:[id number] Age/Sex: 74 / M ADM Date: 5 Loc: Room: [address] [place] [address] Type: DIS IN Attending Dr: Julian Jones MD Copies to: ELBA Santillan MD~ Ordering Provider: Nathaniel Alonso DPM Date of Service: 09/11/24 XR/XR foot BI 3V: B/L FOOT WOUND BILATERAL FOOT - 3 views of each foot, 6 views total CLINICAL HISTORY: Bilateral foot wounds, history diabetes, cellulitis and peripheral vascular disease. COMPARISON: Right foot x-ray 10/13/2022 r FINDINGS: Right foot: Diffuse soft tissue swelling. No definite radiopaque foreign body or subcutaneous emphysema. Similar sclerotic appearance fifth metatarsal possibly related to chronic crosstable reaction or periosteal thickening. Remote healed fracture deformity involving the second metatarsal. Lnup-ji-jnrgntxg degenerative changes. Vascular calcifications. Left foot: Prior digit amputations. 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 Yxln-zd-egjjidty diffuse soft tissue swelling without definite radiopaque foreign body or soft tissue gas. No definite periosteal reaction or osseous erosions. Vascular calcifications.. XR/XR foot BI 3V IMPRESSION: Bilateral soft tissue swelling without radiopaque foreign body or definite soft tissue emphysema Similar sclerotic appearance of the fifth metatarsal on the right dating back to 2022, could be related to chronic osteomyelitis within the appropriate clinical setting. No definite acute osseous erosions or periosteal reaction. Impression dictated by: Leobardo Saenz M.D. 09/11/2024 1:04 PM Dictation Location: [facility]- Transcribed By: [facility] 09/11/24 1301 Dictated By: Leobardo Saenz MD 09/11/24 1250 Signed By: <Electronically signed by Leobardo Saenz MD in OV> 09/11/24 1304 Author Fawad Rocha [facility] Authored September 13, 2024 9:00a m Report Dictated Date/Time Dictated By Status Radiology Report September 13, 2024 9:00am Fawad velez MD completed [facility] Main [place] [address] [place] [address] Ultrasound Report Signed Patient: Lonny Lott MR#: [id number] : 1950 Acct:[id number] Age/Sex: 74 / M ADM Date: 5 Loc: Room: [address] [place] [address] Type: DIS IN Attending Dr: Julian Jones MD Ordering Provider: Julian Jones MD Date of Service: 09/11/24 US/US arterial pvr rest LE: PVD Copies to: Julian Jones MD~ Segmental O. Doppler examination Indication for study: Open wounds PROCEDURE: The right arm blood pressure is not obtained due to a dialysis fistula. The left arm blood pressure is 113 mmHg. In the right leg all the pressures are incompressible with the exception of the low thigh which had a pressure 187 mmHg giving a thigh brachial index of 1.65. In the left leg the high thigh pressure is 202, low thigh pressure 143, calf pressure 185, posterior tibial pressure is incompressible. The left dorsalis pedis pressure is 176 mmHg giving an ankle-brachial index of 1.56. Waveforms by plethysmography are pulsatile with mild blunting. US/US arterial pvr rest LE IMPRESSION: No quantitative information is available from this examination due to incompressibility. Impression dictated by: Fawad Rocha M.D. 09/13/2024 9:02 AM Dictation Location: [place] [address] Tech: Caitlynkeke Chacon Transcribed By: BRIANA 09/13/24901 Dictated By: Fawad Rocha MD 09/13/24 09 Signed By: <Electronically signed by MD Fawad Rocha in OV> 09/13/24 0902 Author Leobardo Saenz [facility] Authored September 15, 2024 11:2 9pm Report Dictated Date/Time Dictated By Status Radiology Report September 15, 2024 11:29pm Leobardo Saenz MD completed [facility] Main [place] [address] [place] [address] XRay Report Signed Patient: Lonny Lott MR#: [id number] : 1950 Acct:[id number] Age/Sex: 74 / M ADM Date: 5 Loc: ER Room: Type: [facility] ER Attending Dr: Copies to: Pedro Drake MD~ Ordering Provider: Pedro Drake MD Date of Service: 09/15/24 XR/XR tibia fibula RT 2V*: Skin/Abscess/Foreign Body RIGHT TIBIA AND FIBULA - - 2 views CLINICAL HISTORY: Fall COMPARISON: None FINDINGS: Diffuse soft tissue swelling possible third spacing. No fractures or dislocation. BB noted within soft tissues. XR/XR tibia fibula RT 2V* IMPRESSION: No fracture identified. Diffuse edema Impression dictated by: Leobardo Saenz M.D. 09/15/2024 11:30 PM Dictation Location: [place] [address] Transcribed By: [facility] 09/15/24 2330 Dictated By: Leobardo Saenz MD 09/15/24 2329 Signed By: <Electronically signed by Leobardo Saenz MD in OV> 09/15/24 2330 Vital Signs Vital Reading Result Reference Range Collection Date/Time Height 74 [in_i] September 09, 2024 5:12pm Weight 93.00 kg September 09, 2024 5:12pm Body Temperature 98.1 [degF] 97.6-99.0 September 09, 025 5:13pm Heart Rate 64 /min 60-100 September 10, 2024 11:02am Respiratory rate 20 /min 12-24 September 10 025 11:02am Oxygen saturation by Pulse oximetry 95 % 95-100 September 10, 2024 11:02 am BP Systolic 109 mm[Hg] 100-140 September 10, 2024 11:02am BP Diastolic 78 mm[Hg] 60-100 September 10, 2024 11:02am Height 74 [in_i] September 11, 2024 3:10pm Weight 99.40 kg September 14, 2024 6:00am Body Temperature 98.0 [degF] 97.6-99.0 September 14, 2024 8:00am Heart Rate 66 /min 60-100 September 14, 2024 12:00pm Respiratory rate 16 /min -September 14, 2024 12:00pm Oxygen saturation by Pulse oximetry 95 % 95-100 September 14, 2024 12:0 0pm BP Systolic 112 mm[Hg] 100-140 September 14, 2024 12:00pm BP Diastolic 69 mm[Hg] 60-100 September 14, 2024 12:00pm Inhaled oxygen flow rate 90 L/min Sep 4:00am Height 72 [in_i] September 15, 2024 11:35pm Weight 96.50 kg September 15, 2024 11:35pm Heart Rate 86 /min 60-100 September 16, 2024 2:20am Respiratory rate 22 /min 03-30September 16, 2024 2:20am Oxygen saturation by Pulse oximetry 98 % 95-100 September 16, 2024 2:20 am BP Systolic 85 mm[Hg] 100-140 September 16, 2024 2:20am BP Diastolic 54 mm[Hg] 60-100 September 16, 2024 2:20am Height 74 [in_i] September 23, 2024 1:33pm Weight 96.40 kg September 24, 2024 5:51am Body Temperature 97.9 [degF] 97.6-99.0 September 24, 2024 11:17am Heart Rate 89 /min 60-100 September 24, 2024 4:00pm Respiratory rate 16 /min -September 24, 2024 4:00pm Oxygen saturation by Pulse oximetry 97 % 95-100 September 24, 2024 4:00 pm BP Systolic 112 mm[Hg] 100-140 September 24, 2024 4:00pm BP Diastolic 70 mm[Hg] 60-100 September 24, 2024 4:00pm Height 74 [in_i] October 07, 2024 12:30pm Weight 96.70 kg October 07, 2024 12:30pm Body Temperature 98.8 [degF] 97.6-99.0 October 07, 025 12:30pm Heart Rate 97 /min 60-100 October 07, 2024 12:30pm Respiratory rate 20 /min -October 07, 2 025 12:30pm Oxygen saturation by Pulse oximetry 94 % 95-100 October 07, 2024 12:30 pm BP Systolic 107 mm[Hg] 100-140 October 07, 2024 12:30pm BP Diastolic 62 mm[Hg] 60-100 October 07, 2024 12:30pm Height 74 [in_i] October 13, 2024 12:13pm Weight 96.90 kg October 14, 2024 6:00am Body Temperature 97.9 [degF] 97.6-99.0 October 14, 2024 7:53am Heart Rate 91 /min 60-100 October 14, 2024 7:53am Respiratory rate 18 /min -October 14, 2024 7:53am Oxygen saturation by Pulse oximetry 96 % 95-100 October 14, 2024 7:53 am BP Systolic 103 mm[Hg] 100-140 October 14, 2024 7:53am BP Diastolic 62 mm[Hg] 60-100 October 14, 2024 7:53am Height 74 [in_i] October 15, 2024 6:30am Weight 97.52 kg October 15, 2024 6:30am Body Temperature 97.6 [degF] 97.6-99.0 October 15, 2024 6:30am Heart Rate 84 /min 60-100 October 15, 2024 10:01am Respiratory rate 16 /min -October 15, 2024 10:01am Oxygen saturation by Pulse oximetry 100 % 95-100 October 15, 2024 10:0 1am BP Systolic 123 mm[Hg] 100-140 October 15, 2024 10:01am BP Diastolic 76 mm[Hg] 60-100 October 15, 2024 10:01am Advance Directives Advance Directive Response Recorded Date/ Time Advance Directives No December 9:45am Insurance Providers Guarantor Lonny Lott Address [address] [facility] [address] Contact Info. Home Phone: Payer Policy Id Subscriber's Name Subscriber Id Effectiv e Date Expiration Date Medicaid [id number] Lonny Lott [id number] Medicare [id number] Lonny Lott [id number] Encounters Encounter Location(s) Arrival/Admit Date Discharge/Depart Date Provider(s) Non-patient / Non-visit -[facility] Dialysis Unit July 29, 2024 7:00am Johan Taylor MD Departed Referred -[facility] August 03, 2024 9:36am August 03, 2024 9:37am Katlin Castellanos PA-C Non-patient / Non-visit -[facility] Dialysis Unit August 31, 2024 6:00am Olga Lidia Martin MD Departed Emergency -Emergency Room September 09, 2024 5:11pm September 10, 2024 11:12am Discharged Inpatient -[facility] September 10, 2024 9:19pm September 14, 2024 4:10pm Renard Caballero MD Non-patient / Non-visit -[facility] Neph Sand September 11, 2024 10:56am Olga Lidia Martin MD Non-patient / Non-visit [facility] September 13, 2024 9:31am Kwasi Pitt MD Departed Emergency -Emergency Room September 15, 2024 10:27pm September 16, 2024 2:23am Non-patient / Non-visit -[facility] Neph Sand September 22, 2024 3:09pm Yisel Andrade MD Departed Emergency -Emergency Room October 07, 2024 12:29pm October 07, 2024 1:06pm Departed Clinical -Dialysis October 11, 2024 12:20pm October 11, 2024 12:21pm Johan Taylor MD Non-patient / Non-visit -[facility] Vascular Surg October 12, 2024 1:54pm Fawad Rocha MD Non-patient / Non-visit -[facility] Neph Sand October 12, 2024 1:55pm Johan Taylor MD Non-patient / Non-visit -[facility] Vascular Surg October 15, 2024 5:27am Fawad Rocha MD Recent Diagnosis Onset Date Admit Date ESRD (end stage renal disease) on dialysis Unkno wn September 10, 2024 9:19pm Foot drop, right Unknown September 10, 2024 9:19pm Hypertensive chronic kidney disease with stage 5 chronic kidney disease or Unknown September 10, 2024 9:19pm PAD (peripheral artery disease) Unknown Ree 6th, 2025 9:19pm Type 2 diabetes mellitus wit h diabetic chronic kidney disease Unknown September 10, 2024 9:19pm Type 2 diabetes mellitus with foot ulcer Unknown September 10, 2024 9:19pm Type 2 diabetes mellitus with peripheral neuropa thy Unknown September 10, 2024 9:19pm Diabetic foot ulcer Unknown September 10 9:19pm Elevated troponin I level Unknown September 102024 9:19pm Nausea Unknown September 10, 2024 9 :19pm Anemia of renal disease Unknown September 9:19pm End-stage renal disease on hemodialysis Unknown September 10, 2024 9:19pm Wound of foot Unknown September 10, 2024 9 :19pm Diarrhea Unknown September 22, 2024 3:09pm ESRD (end stage renal disease) on dialysis Unkno wn September 22, 2024 3:09pm Secondary hyperparathyroidism Unknown Ju 2024 3:09pm Type 2 diabetes mellitus with peripheral neuropa thy Unknown September 22, 2024 3:09pm Cellulitis Unknown September 22, 2024 3:09pm Ulcer of left heel Unknown September 22 3:09pm Ulcer of right heel Unknown September 22, 2 025 3:09pm Anemia of renal disease Unknown September 3:09pm Diabetes Unknown September 22, 2024 3:09pm Infected wound Unknown September 22, 2024 3:09pm Status post amputation of left foot Unknown September 22, 2024 3:09pm Ulcer of left foot Unknown September 22 3:09pm Clotted renal dialysis AV graft Unknown October 12, 2024 1:55pm Diabetes Unknown October 12, 2024 1 :55pm Dialysis AV fistula malfunction Unknown October 12, 2024 1:55pm ESRD (end stage renal disease) on dialysis Unkno wn October 12, 2024 1:55pm Secondary hyperparathyroidism Unknown Ju 2024 1:55pm Anemia of renal disease Unknown October 1:55pm Functional Status Observation Response Date Recorded Dressing Patient at Baseline September 14, 2 025 3:25pm Eating Patient at Baseline September 14, 2 025 3:25pm Bathing Patient at Baseline September 14, 2 025 3:25pm Disability Status Patient at Baseline September 14, 2024 3:25pm Mental Status Observation Response Date Recorded Cognitive Status Patient at Baseline September 14, 2024 3:25pm Cognitive/Mental Status Assessments Assessments Diagnosis Onset Date Resolution Status Admit Date ESRD (end stage renal diseas e) on dialysis acute September 10, 2024 9:19pm Foot drop, right acute September 9:19pm Hypertensive chronic kidney disease with stage 5 chronic kidney disease or acute September 10, 2024 9:19pm PAD (peripheral artery disease) acut e September 10, 2024 9:19pm Type 2 diabetes mellitus wit h diabetic chronic kidney disease acute September 10, 2024 9:19pm Type 2 diabetes mellitus wit h foot ulcer acute September 10, 2024 9:19pm Type 2 diabetes mellitus wit h peripheral neuropathy acute September 10, 2024 9:19pm Diabetic foot ulcer chronic September 10, 2024 9:19pm Elevated troponin I level resolved September 10, 2024 9:19pm Nausea resolved September 10, 2024 9:19pm Anemia of renal disease deleted [facility] 2024 9:19pm End-stage renal disease on hemodialysis deleted September 10, 2024 9:19pm Wound of foot deleted September 10 9:19pm Diarrhea acute September 22 3:09pm ESRD (end stage renal diseas e) on dialysis acute September 22, 2024 3:09pm Secondary hyperparathyroidism acute September 22, 2024 3:09pm Type 2 diabetes mellitus wit h peripheral neuropathy acute September 22, 2024 3:09pm Cellulitis inactive September 22 3:09pm Ulcer of left heel inactive September 052024 3:09pm Ulcer of right heel inactive September 22, 2024 3:09pm Anemia of renal disease deleted [facility] 2024 3:09pm Diabetes deleted September 22 3:09pm Infected wound deleted September 22, 2024 3:09pm Status post amputation of le ft foot deleted September 22, 2024 3:09pm Ulcer of left foot deleted September 052024 3:09pm Clotted renal dialysis AV graft acut e October 12, 2024 1:55pm Diabetes acute October 12, 2024 1:55pm Dialysis AV fistula malfunction acut e October 12, 2024 1:55pm ESRD (end stage renal diseas e) on dialysis acute October 12, 2024 1:55pm Secondary hyperparathyroidism acute October 12, 2024 1:55pm Anemia of renal disease deleted [facility] 2024 1:55pm Plan of Treatment Future Tests Future scheduled test information is unavailable Pending Tests Pending diagnostic test information is unavailable Future Visits Future appointment information is unavailable Referrals to Other Providers Reason for Referral Referral Start Date Provider Provider Contact Information Provider Address ELÍAS Quigley Work [employer] jose maria: [address] [place] [address] ELÍAS [employer]igley [employer] jose maria: [address] [place] [address] Call for appointment to schedule next procedure Fawad Rocha MD Work Phone: [address] [place] [address] [address] [facility] [address] ELÍAS Quigley Work P jose maria: [address] [place] [address] Previously scheduled appointment. [facility] , at Work Phone: [address] [facility], [place] [address] You have been scheduled for a follow up appointment for the following date and time, please call to reschedule if needed. ELÍAS Quigley Work Phone: [address] [place] [address] Future Procedures Procedure Name Ordered Date Scheduled Date Diet Supplement September 23, 2024 1:50pm September 1:50pm Admit Status Order September 22, 2024 3:09pm September 052024 3:09pm Consult to Nephrology September 22, 2024 3:11pm Mac 2024 3:11pm Consult to Podiatry September 22, 2024 10:19pm September 22, 2024 10:19pm Discharge Order October 15, 2024 8:09am October 8:09am Initiate Home Health September 14, 2024 10:30am Diet Supplement September 11, 2024 3:33pm September 11, 2024 3:34pm Admit Status Order September 10, 2024 9:19pm September 9:19pm Discharge Order September 14, 2024 1:10pm September 1:10pm Consult to Infectious Diseases September 12, 2024 10 :21am September 12, 2024 10:21am Consult to Nephrology September 10, 2024 10:02pm Mac 2024 10:02pm Consult to Podiatry September 10, 2024 11:56pm September 10, 2024 11:56pm Diet Supplement October 13, 2024 12:26pm October 13, 2024 12:26pm Admit Status Order October 12, 2024 6:14pm October 6:14pm Consult to Adult Hospitalist October 12, 2024 6:14 pm October 12, 2024 6:14pm Consult to Nephrology October 12, 2024 6:14pm October 12, 2024 6:14pm Future Medications Future medication information is unavailable Patient Instructions Instruction Admit Date Nausea and vomiting in adults - ED disch arge instructions September 09, 2024 5:11pm Know your Meds September 10, 2024 9:19p m Laceration Repair With Glue ED Minor contusion - ED discharge instructions September 15, 2024 10:27pm Know your Meds September 22, 2024 3:09 pm Syncope (fainting) - Dischar ge instructions Abrasions - ED discharge instructions October 07, 2024 12:29pm Know your Meds October 12, 2024 1:55p m How to care for a hemodialys is catheter Know your Meds October 15, 2024 5:27am Goals Acute Goals Author Authored Date Exhibit optimal tissue perfu bernardo * Exhibits adequate oxygenation and ventilation * Exhibits adequate cardiac output * Regains stable cardiac rhythm * Maintains optimal activity level * Maintains balanced intake and output [facility] September 14, 2024 4:41pm Skin integrity intact [facility] September 14, 2024 4:41pm Maintain/increase activity l evels * Understands factors that may lead to activity intolerance * Helps perform self care activities * Maintains maximum range of motion * Increase/regain muscle mass and strength * Maintains VS WNL during activity * Maintain intact skin integrity Updated: 05/20/2022 [facility] September 14, 2024 4:41pm Absence of new skin breakdow n [facility] September 14, 2024 4:41pm Wound healing [facility] September 14, 2024 4:41pm Fall Prevention 2022 [facility] September 14, 2024 4:41pm Exhibit optimal tissue integ rity * Exhibits granulation/healing at site * Exhibits decreased drainage at site * Exhibits no s/s of infection * Exhibits a decrease in lesion size * Maintains nutritional status * Maintains hydration status * Maintains optimal lab values [facility] September 14, 2024 4:41pm Preferences Type Detail Treatment Intervention Code Status: Full Code
--- OUTSIDE RECORDS SUMMARY | 2024-10-21 15:12 | XMS_ITS | Patient Health Record ---
Author Organization [facility] [place] Address [address] [place] [address] Care Team Providers Care Certified Peer Specialist Name Role Phone None, Unknown or Primary Care Provider Unavailab Liam Paulson Unavailable [phone] Results Component Value Reference Range Notes PTT (Not yet reviewed by pro vider) Interpretation: Performing Lab: Notes/Report: [facility] , Partial Thromboplastin Time 28.9 22.3-36.2 sec Performing Lab: see note ML - [facility] LB Prothrombin Time INR (Not ye t reviewed by provider) Interpretation: Performing Lab: Notes/Report: [facility] , Prothrombin Time 10.7 9.0-11.6 sec INR 1.01 DESIRED INR: 2.0-3.0 CONDITIONS NOT LISTED BELOW 2.5-3.5 FOR PROSTHETIC HEART VALVE REPLACEMENT 2.5-3.5 RECURRENT THROMBOSIS Performing Lab: see note ML - [facility] LB ECG 12 lead (Not yet reviewe d by provider) Interpretation: Performing Lab: Notes/Report: Source Facility: [place] [address] [place] [address] Electrocardiograph Report Signed Patient: LONNY LOVE MR#: [id number] : 1950 Acct:[id number] Age/Sex: 73 / M ADM Date: 01/08/24 Loc: PST Attending Dr: Liam Myles D.P.M. Ordering Physician: Liam Myles D.P.M. Date of Service: 01/08/24 Procedure(s): ECG 12 lead Accession Number(s): [id number] cc: [facility] Test Date: 2024-01-08 Pat Name: LONNY LOVE Department: Room: - Gender: Male Film Or Tape Librarian: : 1950 Requested By: LIAM MYLES Order Number: [id number] Reading MD: MOISÉS JEAN Measurements Intervals Harmony Rate: 77 P: 45 AK: 168 QRS: -62 QRSD: 125 T: 69 QT: 381 QTc: 433 Interpretive Statements SINUS RHYTHM POSSIBLE RIGHT VENTRICULAR CONDUCTION DELAY [RSR (QR) IN V1/V2] LEFT ANTERIOR FASCICULAR BLOCK [QRS AXIS <= -45, QR IN I, RS IN II] SEPTAL MYOCARDIAL INFARCTION [40+ ms Q WAVE IN V1/V2], OF INDETERMINATE AGE Electronically Signed On 01-08-2024 19:52:24 EDT by MOISÉS JEAN Dictated By: Moisés Jean D.O. Signed By: 01/08/241951 DD/ 41 TD/TT: Grated Cheese Maker: [place] [address] Electrocardiograph Report Signed Patient: LONNY LOVE MR#: [id number] : 1950 Acct:[id number] Age/Sex: 73 / M ADM Date: 01/08/24 Loc: PST Attending Dr: Liam yMles D.P.M. Ordering Physician: Liam Myles D.P.M. Date of Service: 01/08/24 Procedure(s): ECG 12 lead Accession Number(s): [id number] cc: [facility] Test Date: 2024-01-08 Pat Name: LONNY ROWLAND Department: 63 Room: - Gender: Male Film Or Tape Librarian: : 1950 Requ ested By: LIAM MYLES Order Number: [id number] Reading MD: MOISÉS JEAN Measurements Intervals Harmony Rate: 77 P: 45 AK: 168 QRS: -62 QRSD: 125 T: 69 QT: 381 QTc: 433 Interpretive Statements SINUS RHYTHM POSSIBLE RIGHT VENTR ICULAR CONDUCTION DELAY [RSR (QR) IN V1/V2] LEFT ANTERIOR FASCIC ULAR BLOCK [QRS AXIS <= -45, QR IN I, RS IN II] SEPTAL MYOCARDIAL INFARCTION [40+ ms Q WAVE IN V1/V2], OF INDETERMINATE AGE Electronically Amy d On 01-08-2024 19:52:24 EDT by MOISÉS JEAN Dictated By: Josue Jean D.O. Signed By: 01/08/241951 DD/ 1442 TD/TT: Grated Cheese Maker: XR chest 2V (Not yet reviewe d by provider) Interpretation: Performing Lab: Notes/Report: Source Facility: [place] [address] XRay Report Signed Patient: LONNY LOVE MR#: [id number] : 1950 Acct:[id number] Age/Sex: 73 / M ADM Date: 01/08/24 Loc: PST Attending Dr: Liam Myles D.P.M. Ordering Physician: Liam Myles D.P.M. Date of Service: 01/08/24 Procedure(s): XR chest 2V Accession Number(s): [id number] cc: Liam Myles D.P.M.; Physician,Non-Staff [place] [address] Patient Name: LONNY LOVE MRN: [id number] date: 1950 Sex: M Assigned Patient Location: [facility] Current Patient Location: [facility] Accession/Order Number: [id number] Exam Date: 01/08/2024 14:50 Report Date: 01/08/2024 16:08 At the request of: LIAM MYLES Procedure: XR chest 2V EXAM: XR chest 2V HISTORY: Preop exam COMPARISON: None. TECHNIQUE: Upright PA and lateral chest x-ray FINDINGS: The heart is not enlarged and the vasculature is not distended. No acute infiltrate, effusion or pneumothorax is identified. The lateral view is limited secondary to arm positioning. The osseous structures are grossly intact. XR/XR chest 2V IMPRESSION: No acute infiltrate or evidence of cardiac decompensation. The lateral view is limited. Electronically authenticated by: LIAM MCCOLLUM Date: 01/08/2024 16:08 Dictated By: Liam Mccollum M.D. Signed By: 01/08/24 1611 DD/ 07 TD/TT: Grated Cheese Maker: The [address] [address] XRay Report Signed Patient: LONNY LOVE MR#: [id number] : 1950 Acct:[id number] Age/Sex: 73 / M ADM Date: 01/08/24 Loc: PST Attending Dr: Liam Myles D.P.M. Ordering Physician: Liam Myles D.P.M. Date of Service: 01/08/24 Procedure(s): XR chest 2V Accession Number(s): [id number] cc: Liam Myles D.P.M.; Physician,Non-Staff [place] [id number] Patient Name: LONNY LOVE MRN: [id number] date: 1950 Sex: M Assigned Patient Loc ation: SURGOUT Current Patient Loca tion: PST Accession/Order Numb er: [id number] Exam Date: 14:50 Report Date: 01/08/2024 16:08 At the request of: LIAM MYLES Procedure: XR chest 2V EXAM: XR chest 2V HISTORY: Preop exam COMPARISON: None. TECHNIQUE: Upright P A and lateral chest x-ray FINDINGS: The heart is not enlarged and the vasculature is not distended. No acute infiltrate, ef fusion or pneumothorax is identified. The lateral view is limited secondary to arm positioning. The osseous structures are grossly intact. X R/XR chest 2V IMPRESSION: No acute infiltrate or evidence of cardiac decompensation. The lateral view is limited. Electronically authenticated by: LIAM MCCOLLUM Date: 01/08/2024 16:08 Dictated By: Hilda Mccollum M.D. Signed By: 01/08/24 1611 DD/ 07 TD/TT: Grated Cheese Maker: PROF FRANCES Cobb ([facility]) (Not yet reviewed by provider) Interpretation: Performing Lab: Notes/Report: [facility] , Sodium 131 136-145 mmol/L Potassium 4.3 3.5-5.1 mmol/L Chloride 93 98-107 mmol/L Carbon Dioxide 27.1 21.0-32.0 mmol/L Anion Gap 15.2 Glucose 191 74-106 mg/dL Blood Urea Nitrogen 31.0 7.0-18.0 mg/dL Creatinine 6.08 0.70-1.30 mg/dL RESULTS CALL ED TO [facility]LOS WALTERS AT DR MYLES'S OFFICE Estimated GFR ( Glenis 11 >=60 mL/min/1.73m 2 Estimated GFR (Non- Domonique 9 >=60 mL/min/1.73m 2 BUN Creatinine Ratio 5.1 Calcium 9.8 8.5-10.1 mg/dL Performing Lab: see note ML - [facility] LB Reason For Referral No Information Problems Problem Type SNOMED Code ICD Code Onset Dates Problem Status W/U Status Risk Notes Problem Foot ulcer due to type 2 diabetes mellitus (3278903282993) Type 2 diabetes mellitus with foot ulcer (E11.621) Active confirmed Problem Pressure injury of right heel stage III (disorder) (53273390247237) Pressure ulcer of right heel, stage 3 (L89.613) Active confirmed Problem Chronic ulcer of foot (863423440) Non-pressure chronic ulcer of right heel and midfoot limited to breakdown of skin (L97.411) Active confirmed Problem Non-pressure chronic ulcer of other part of right foot with fat layer exposed (L97.512) Active confirmed Problem Chronic venous insufficiency (23580771) Chronic venous insufficiency (I87.2) Active confirmed Problem Polyneuropathy due to type 2 diabetes mellitus (358382816) Diabetes mellitus with polyneuropathy (E11.42) Active confirmed Problem Peripheral vascular disease (800834060) Other peripheral vascular diseases (I73.89) Active confirmed Problem Foot ulcer due to type 2 diabetes mellitus (1626287383473) Diabetes mellitus with foot ulcer due to multiple causes (E11.621) Active confirmed Problem Chronic ulcer of foot (693936728) Non-pressure chronic ulcer of right heel and midfoot with fat layer exposed (L97.412) Active confirmed Problem Pressure injury of right heel stage III (disorder) (52140396022005) Decubitus ulcer of right heel, stage 3 (L89.613) Active confirmed Problem Right foot drop (finding) (171392050866046) Acquired right foot drop (M21.371) Active confirmed Problem Chronic ulcer of plantar surface of right midfoot limited to breakdown of skin (L97.411) Active confirmed Problem Pressure injury of right heel stage III (disorder) (90871618399590) Pressure injury of right heel, stage 3 (L89.613) Active confirmed Problem Chronic ulcer of right heel (disorder) (8797116407073770 2) Chronic ulcer of right heel limited to breakdown of skin (L97.411) Active confirmed Encounters Encounter Location Date Provider Diagnosis [facility] OUT[facility] [address] [place] [address] 01/22/2024 Liam Myles Plan Of Treatment Pending Test Test Name Order Date PROF CHEM 8 (BAS METB) 01/08/2024 PTT 01/08/2024 ECG 12 lead 01/08/2024 Prothrombin Time INR 01/08/2024 XR chest 2V 01/08/2024 Insurance Providers Payer Name Payer Address Payer Phone Subscriber Number Group Number Insured Name Patient Relationship to Insured Coverage Start Date Coverage End Date [employer] MEDICARE ADV PLAN [address] [address] [place] [address] [id number] Lonny Delgado Self - patient is the insured [place] 2ND INS [address] OFF[place] OF [place], [place] [id number] Lonny Delgado Self - patient is the insured 5 [place] [address] [place] [address] [id number] Lonny Delgado Self - patient is the insured
--- OUTSIDE RECORDS SUMMARY | 2024-10-21 15:12 | XMS_ITS | Patient Health Record ---
Author Organization [facility] Address [facility] [place] [address] Care Team Providers Care Retail Service Specialist Name Role Phone Vincenzo Gomez Unavailable [phone] Reason For Referral No Information Plan Of Treatment No Information Insurance Providers Payer Name Payer Address Payer Phone Subscriber Number Group Number Insured Name Patient Relationship to Insured Coverage Start Date Coverage End Date Medicare Part B J-15 Part [facility] [place] [address] [id number] Lonny Delgado Self - patient is the insured Medicaid [place] [employer] [address] [place] [address] [id number] Lonny Delgado Self - patient is the insured
--- OUTSIDE RECORDS SUMMARY | 2024-10-21 15:12 | XMS_ITS | Clinical Summary ---
Author Organization [facility] Address [address] [place] [address] Care Team Providers Care Account Group Supervisor Name Role Phone Unavailable Primary Care Provider Unavailabl e Encounters Date Type Department Care Team Description 09/11/2024 External Result Encounter [facility] External Department Unsolicited Nathaniel Alonso DPM from Last 3 Months Social History Tobacco Use Types Packs/Day Years Used Date Smoking Tobacco: Never Assessed Sex and Gender Information Value Date Recorded Sex Assigned at Not on file Legal Sex Male 6:54 PM EDT Gender Identity Not on file Sexual Orientation Not on file Plan of Treatment Not on file Procedures Procedure Name Priority Date/Time Associated Diagnosis Comments XR FOOT 3+ VIEWS BILATERAL 09/11/2024 12:58 PM EDT from Last 3 Months Results * XR foot 3+ views bilateral (09/11/2024 12:58 PM EDT) Anatomical Region Laterality Modality Lower Extremities, Foot Bilateral [facility] 09/11/2024 12:5 8 PM EDT Impressions 09/11/2024 1:06 PM EDT Bilateral soft tissue swelling without radiopaque foreign body or definite soft tissue emphysema Similar sclerotic appearance of the fifth metatarsal on the right dating back to 2022, could be related to chronic osteomyelitis within the appropriate clinical setting. No definite acute osseous erosions or periosteal reaction. Impression dictated by: Leobardo Saenz M.D. 09/11/2024 1:04 PM Dictation Location: [facility] Transcribed By: [facility] 09/11/24 1304 Dictated By: Leobardo Saenz MD 09/11/24 1258 Signed By: <Electronically signed by Leobardo Saenz MD in OV> 09/11/24 1304 Narrative 09/11/2024 1:06 PM EDT [facility] Main [address] [address] XRay Report Signed Patient: Lonny Lott MR#: [id number] : 1950 Acct:[id number] Age/Sex: 74 / M ADM Date: 09/10/24 Loc: 3T Room: [address] [place] [address] Type: DIS IN Attending Dr: Julian Jones MD Copies to: ELBA Santillan MD Ordering Provider: Nathaniel Alonso DPM Date of [...] healed fracture deformity involving the second metatarsal. Rqpm-ix-fqwrnzpp degenerative changes. Vascular calcifications. Left foot: Prior digit amputations. 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 Itew-cm-qyjgsinq diffuse soft tissue swelling without definite radiopaque foreign body or soft tissue gas. No definite periosteal reaction or osseous erosions. Vascular calcifications.. XR/XR foot BI 3V Procedure Note Radiology, Radiologist, MD - 10/14/2024 [facility] Main [address] [address] XRay Report Signed Patient: Lonny Lott EMR#: [id number] : 1950Acct:[id number] Age/Sex: 74 / MADM Date: 09/10/24 Loc: 3T Room: [id number]: DIS IN Attending Dr: Julian Jones MD Copies to: ELBA Santillan MD Ordering Provider: Nathaniel Alonso DPM Date of Service: 09/11/24 XR/XR foot BI 3V: B/L FOOT WOUND BILATERAL FOOT - 3 views of each foot, 6 views total CLINICAL HISTORY: Bilateral foot wounds, history diabetes, cellulitis andperipheral vascular disease. COMPARISON: Right foot x-ray 10/13/2022 r FINDINGS: Right foot: Diffuse soft tissue swelling. No definite radiopaque foreignbody or subcutaneous emphysema. Similar sclerotic appearance fifth metatarsal possibly relatedto chronic crosstable reaction or periosteal thickening. Remote healed fracture deformityinvolving the second metatarsal. Vnvv-bf-rzzpewvv degenerative changes. Vascularcalcifications. Left foot: Prior digit amputations. Evidence of bony ankylosis of thesecond and third metatarsals. Tyvk-vi-hoimgfvq diffuse soft tissue swelling without definite radiopaqueforeign body or soft tissue gas. No definite periosteal reaction or osseous erosions.Vascular calcifications.. XR/XR foot BI 3V IMPRESSION: Bilateral soft tissue swelling without radiopaque foreign body or definitesoft tissue emphysema Similar sclerotic appearance of the fifth metatarsal on the right datingback to 2022, could be related to chronic osteomyelitis within the appropriate clinical setting. No definite acute osseous erosions or periosteal reaction. Impression dictated by: Leobardo Saenz M.D. 09/11/2024 1:04 PM Dictation Location: [place] [address] Transcribed By: [facility] 09/11/24 1304 Dictated By: Leobardo Saenz MD 09/11/24 1258 Signed By: <Electronically signed by Leobardo Saenz MD in OV> 09/11/24 1304 Nathaniel Alonso DPM IMG XR PROCEDURES Edite d Result - Final from Last 3 Months Insurance [facility] MEDICARE ADVANTAGE MEDICAID [place]
--- OUTSIDE RECORDS SUMMARY | 2024-10-21 15:13 | XMS_ITS | Encounter Summary ---
Author Organization [facility] Address [address] [place] [address] Care Team Providers Care Consultant Teacher Name Role Phone Unavailable Primary Care Provider Unavaildilshad e Encounter Details Date Type Department Care Team (Late st Contact Info) Description 09/11/2024 External Result Encounter [facility] External Department Unsolicited Nathaniel Alonso DPM [address] [place] [address] Social History Tobacco Use Types Packs/Day Years Used Date Smoking Tobacco: Never Assessed Sex and Gender Information Value Date Recorded Sex Assigned at Not on file Legal Sex Male 6:54 PM EDT Gender Identity Not on file Sexual Orientation Not on file documented as of this encounter Plan of Treatment Not on file documented as of this encounter Procedures Procedure Name Priority Date/Time Associated Diagnosis Comments XR FOOT 3+ VIEWS BILATERAL 09/11/2024 12:58 PM EDT documented in this encounter Results * XR foot 3+ views bilateral (09/11/2024 12:58 PM EDT) Anatomical Region Laterality Modality Lower Extremities, Foot Bilateral Radiogra [facility] 09/11/2024 12:5 8 PM EDT Impressions [...] Saenz M.D. 09/11/2024 1:04 PM Dictation Location: [facility] Transcribed By: BRIANA 09/11/24 1304 Dictated By: Leobardo Saenz MD 09/11/24 1258 Signed By: <Electronically signed by Leobardo Saenz MD in OV> 09/11/24 1304 Narrative 09/11/2024 1:06 PM EDT [facility] [place] [address] XRay Report Signed Patient: Lonny Lott MR#: [id number] : 1950 Acct:[id number] Age/Sex: 74 / M ADM Date: 09/10/24 Loc: 3T Room: [address] [place] [address] Type: DIS IN Attending Dr: Julian Jones [...] healed fracture deformity involving the second metatarsal. Nbay-sb-dnfcygik degenerative changes. Vascular calcifications. Left foot: Prior digit amputations. 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 Urvx-vp-yoxxpccf diffuse soft tissue swelling without definite radiopaque foreign body or soft tissue gas. No definite periosteal reaction or osseous erosions. Vascular calcifications.. XR/XR foot BI 3V Procedure Note Radiology, Radiologist, - 10/14/2024 [facility] Main [address] [address] XRay Report Signed Patient: Lonny Lott EMR#: [id number] : 1950Acct:[id number] Age/Sex: 74 / MADM Date: 09/10/24 Loc: 3T Room: [id number]: DIS IN Attending Dr: Julian Jones MD [...] Remote healed fracture deformityinvolving the second metatarsal. Txym-nj-celjgjpc degenerative changes. Vascularcalcifications. Left foot: Prior digit amputations. Evidence of bony ankylosis of thesecond and third metatarsals. Mncz-qo-zgrzmkhi diffuse soft tissue swelling without definite radiopaqueforeign [...] Saenz M.D. 09/11/2024 1:04 PM Dictation Location: [place] [address] Transcribed By: [facility] 09/11/24 1304 Dictated By: Leobardo Saenz MD 09/11/24 1258 Signed By: <Electronically signed by Leobardo Saenz MD in OV> 09/11/24 1304 Nathaniel Alonso DPM IMG XR PROCEDURES Edite d Result - Final documented in this encounter Visit Diagnoses Not on filedocumented in this encounter
--- OUTSIDE RECORDS SUMMARY | 2024-10-21 15:13 | XMS_ITS | Encounter Summary ---
Author Organization [facility] Address [address] [place] [address] Phone Care Team Providers Care Software Quality Automation Engineer Name Role Phone Anton Mcgee DO Primary Care Provider +1- [phone] Encounter Details Date Type Department Care Team (Late st Contact Info) Description 01/11/2022 Orders Only [facility] [address] [place] [address] Conversion, Onbase Social History Tobacco Use Types Packs/Day Years Used Date Smoking Tobacco: Never Assessed Sex and Gender Information Value Date Recorded Sex Assigned at Not on file Legal Sex Male 9:07 PM EST Gender Identity Not on file Sexual Orientation Not on file documented as of this encounter Plan of Treatment Scheduled Orders Name Type Priority Associated Diagnoses Orde r Schedule OUTSIDE LAB SCAN Lab Ordered: 01/11/2022 documented as of this encounter Visit Diagnoses Not on filedocumented in this encounter Care Teams Software Quality Automation Engineer Relationship Specialty Start Date End Date Anton Mcgee DO [address] [facility] [place] [address] PCP - General 04/07/99 documented as of this encounter
--- OUTSIDE RECORDS SUMMARY | 2024-10-21 15:13 | XMS_ITS | Encounter Summary ---
Author Organization [facility] Address [facility] [place] [address] Care Team Providers Care Care Analyst Name Role Phone Anton Mcgee DO Primary Care Provider +1- [phone] Source Comments In the event this information is protected by the Federal Confidentiality of Alcohol and Drug AbusePatient Records regulations: The Federal rules restrict any use of the information to criminally investigate or prosecute any alcohol or drug abuse patient.[facility] Encounter Details Date Type Department Care Team (Late st Contact Info) Description 10/17/2022 Lab Requisition [facility] [place] [address] Pedro Drake MD [address] [place] [address] Social History Tobacco Use Types [...] N ot on file 05/21/2022 Data from: https://www.neighborhoodatlas.[facility]/. Last address used for calculation [address] [...] INHIBITORY CONCENTRATION ([facility]) 10/19/2022 1:58 PM EDT [facility] Comment: Identification performed by client. Micro [...] us Pedro Drake MD LABORATORY Final Result [facility] [address] [address], documented in this encounter Visit Diagnoses Not on filedocumented in this encounter Care Teams Care Analyst Relationship Specialty Start Date End Date Anton Mcgee DO [address] [place] [address] PCP - General Family Medicine 05/06/22 documented as of this encounter
--- OUTSIDE RECORDS SUMMARY | 2024-10-21 15:13 | XMS_ITS | Clinical Summary ---
Author Organization [facility] Address [address] [place] [address] Phone Care Team Providers Care Media Promoter Name Role Phone Anton Mcgee DO Primary Care Provider +1- [phone] Encounters Date Type Department Care Team Description 09/12/2024 Scanned Document [facility] [address] [place] [id number] Scanning, Generic Provider from Last 3 Months Social History Tobacco Use Types Packs/Day Years Used Date Smoking Tobacco: Never Assessed Sex and Gender Information Value Date Recorded Sex Assigned at Not on file Legal Sex Male 9:07 PM EST Gender Identity Not on file Sexual Orientation Not on file Last Filed Vital Signs Vital Sign Reading Time Taken Comments Blood Pressure 136/78 02/21/2022 11:26 AM EST Pulse 90 02/21/2022 10:53 AM EST Temperature - - Respiratory Rate - - Oxygen Saturation - - Inhaled Oxygen Concentration - - Weight - - Height 188 cm (6' 2 ) 02/21/2022 10:53 AM EST Body Mass Index - - Plan of Treatment Health Maintenance Due Date Last Done Comments CT Colonography 1950 Colonoscopy 1950 Colorectal Cancer Screening 1950 FIT-DNA (Cologuard) 1950 FIT 1950 Lipid Panel 1950 Sigmoidoscopy 1950 Yearly Adult Physical 1950 HIB Vaccines (1 of 1 - Risk 1-dose series) 06/30/1951 Meningococcal Vaccine (1 - R isk 2-dose series) 1952 Hepatitis C Screening 1968 Pneumococcal Vaccine (1 of 2 - PCV) 1969 DTaP/Tdap/Td Vaccines (1 - Tdap) 1972 Zoster Vaccines (1 of 2) 2000 RSV High Risk: (Elderly (60+ ) or Population) (1 - Risk 60-74 years 1-dose series) 2010 COVID-19 Vaccine (1 - 2023-2 5 season) 2023 Influenza Vaccine (#1) 2024 01/21/2022 HPV Vaccines Aged Out No longer eligi ble based on patient's age to complete this topic Hepatitis A Vaccines Aged Out No long er eligible based on patient's age to complete this topic Hepatitis B Vaccines Aged Out No long er eligible based on patient's age to complete this topic IPV Vaccines Aged Out No longer eligi ble based on patient's age to complete this topic Rotavirus Vaccines Aged Out No longer eligible based on patient's age to complete this topic Procedures Procedure Name Priority Date/Time Associated Diagnosis Comments ECHOCARDIOGRAM 09/12/2024 from Last 3 Months Results * Echocardiogram (09/12/2024) Narrative 09/12/2024 Ordered by an unspecified provider. Generic Provider Scanning CV ECHO PROCEDURES Fin al Result from Last 3 Months Insurance MEDICAID Care Teams Media Promoter Relationship Specialty Start Date End Date Anton Mcgee DO [address] [place] [address] PCP - General 04/07/99
--- OUTSIDE RECORDS SUMMARY | 2024-10-21 15:13 | XMS_ITS | Patient Health Record ---
Author Organization [facility] Address [address] [place] [address] Care Team Providers Care Chain Builder Loom Control Name Role Phone Mervat Santiago Primary Care Provider [phone] Becky Nogueira [phone] Allergies Allergen (clinical drug ingredient) Drug/Non Drug Allergy documented on EMR Reaction Allergy Type Onset Date Status lisinopril Lisinopril Unknown Drug Allergy Activ e codeine Codeine (uncoded) Unknown Allergy Ac tive Results Component Value Reference Range Notes Hemoglobin A1c Reviewed date:10/19/2024 11:35:24 AM Interpretation:5.8 Performing Lab: Notes/Report: 5.8 Hemoglobin A1c 5.8 5 - 7.9 % ISTAT ABG Reviewed date:10/20/2024 08:43:46 AM Interpretation: Performing Lab:, [facility], [address] [place] Notes/Report: ISTAT Sodium Level 138 138-146 mmol/L ISTAT Potassium Level 3.4 3.5-4.9 mmol/L ISTAT Total Carbon Dioxide 27 23-29 mmol/L ISTAT Ionized Calcium 1.04 1.12-1.32 mol/L ISTAT Hematocrit 30.0 38.0-51.0 % ISTAT Hemoglobin 10.2 12.0-17.0 g/dL ISTAT Ph 7.358 7.31-7.45 ISTAT PCO2 46.3 35-51 mm[Hg] ISTAT PO2 39 80-105 mm[Hg] ISTAT Bicarbonate 26.1 22.0-28.0 mmol/L ISTAT Base Excess 1 -2 TO 3 mmol/L ISTAT O2 Saturation 70 95-98 % Referenc e ranges reflect baseline specimens only ISTAT Glucose 63 70-105 mg/dL Glucose Poct Glucometers Reviewed date:10/15/2024 08:44:38 AM Interpretation: Performing Lab:, [facility], [address] [place] Notes/Report: Glucose Poc Glucometers 229 Random Glucose Reference Range is dependent on time and content of last meal. Glucose of more than 200 mg/dL in a nonstressed, ambulatory subject supports the diagnosis of Diabetes Mellitus. Glucose Poct Glucometers Reviewed date:10/15/2024 08:43:52 AM Interpretation: Performing Lab:, [facility], [address] [place] Notes/Report: Glucose Poc Glucometers 244 Random Glucose Reference Range is dependent on time and content of last meal. Glucose of more than 200 mg/dL in a nonstressed, ambulatory subject supports the diagnosis of Diabetes Mellitus. Glucose Poct Glucometers Reviewed date:10/15/2024 08:43:25 AM Interpretation: Performing Lab:, [facility], [address] [place] Notes/Report: Glucose Poc Glucometers 159 Random Glucose Reference Range is dependent on time and content of last meal. Glucose of more than 200 mg/dL in a nonstressed, ambulatory subject supports the diagnosis of Diabetes Mellitus. Potassium Reviewed date:10/15/2024 08:32:37 AM Interpretation: Performing Lab:, [facility], [address] [place] Notes/Report: Potassium 3.1 3.5-5.1 mmol/L Glucose Poct Glucometers Reviewed date:10/15/2024 08:33:07 AM Interpretation: Performing Lab:, [facility], [address] [place] Notes/Report: Glucose Poc Glucometers 157 Random Glucose Reference Range is dependent on time and content of last meal. Glucose of more than 200 mg/dL in a nonstressed, ambulatory subject supports the diagnosis of Diabetes Mellitus. ISTAT ABG Reviewed date:10/15/2024 08:32:59 AM Interpretation: Performing Lab:, [facility], [address] [facility] Notes/Report: ISTAT Sodium Level 137 138-146 mmol/L ISTAT Potassium Level 2.9 3.5-4.9 mmol/L ISTAT Total Carbon Dioxide 24 23-29 mmol/L ISTAT Ionized Calcium 1.14 1.12-1.32 mol/L ISTAT Hematocrit 30.0 38.0-51.0 % ISTAT Hemoglobin 10.2 12.0-17.0 g/dL ISTAT Ph 7.340 7.31-7.45 ISTAT PCO2 42.1 35-51 mm[Hg] ISTAT PO2 43 80-105 mm[Hg] ISTAT Bicarbonate 22.7 22.0-28.0 mmol/L ISTAT Base Excess -3 -2 TO 3 mmol/L ISTAT O2 Saturation 75 95-98 % Referenc e ranges reflect baseline specimens only ISTAT Glucose 143 70-105 mg/dL Complete Blood Count Auto Di ff Reviewed date:12/31/2023 05:54:01 PM Interpretation: Performing Lab:, [facility], [address] [facility] Notes/Report: Reason for Exam Diabetes type 2, [...] 10*3/uL Basophils # (Auto) 0.1 0.0-0.2 10*3/uL Vitamin D 25 Hydroxy Reviewed date:12/31/2023 05:48:01 [...] Society clinical practice guideline. JCEM. 2010; 96(7):1911-30. Thyroid Stim Hormone w/Rflx Reviewed date:12/31/2023 05:49:05 PM Interpretation: Performing Lab: Notes/Report: Reason for Exam Diabetes type 2, controlled Reason for Exam Vitamin D deficiency Thyroid Stim Hormone w/Rflx 2.96 0.45-5.33 u[iU]/mL Lipid Panel Reviewed date:12/31/2023 05:49:51 PM Interpretation: [...] VLDL CHOLESTEROL 47 Chol/HDL Ratio 2.6 <5.0 Comprehensive Metabolic Pane l Reviewed date:12/31/2023 05:49:40 PM Interpretation: Performing Lab:, [facility], [address] Notes/Report: Reason for Exam Diabetes type 2, [...] Estimated GFR 9.004 Anion Gap 14.7 6.0-15.0 Hemoglobin A1c Reviewed date:12/18/2023 10:44:20 AM Interpretation:8.2 Performing Lab: Notes/Report: 8.2 Hemoglobin A1c 8.2 5 - 7.9 % Comprehensive Metabolic Pane l Reviewed date:09/23/2024 09:01:36 AM Interpretation: Performing Lab:, [facility], [address] Notes/Report: Glucose 49 70-100 mg/dL Critical Result Called to and read back by: YAW PRUITT at: 09/22/2024 12:59:03 by:[email or web address] Random Glucose Reference Range is dependent on time and content of last meal. Glucose of more than 200 mg/dL in a nonstressed, ambulatory subject supports the diagnosis of Diabetes Mellitus. ADA recommended reference range Blood Urea Nitrogen 77 7-25 mg/dL Creatinine 11.28 0.70-1.30 mg/dL Sodium 133 136-145 mmol/L Potassium 4.0 3.5-5.1 mmol/L Chloride 93 98-107 mmol/L Carbon Dioxide 19.1 21.0-31.0 mmol/L Calcium 8.7 8.6-10.3 mg/dL Total Protein 8.9 6.4-8.9 g/dL Albumin Level 3.7 3.5-5.7 g/dL Globulin 5.2 Albumin/Globulin Ratio 0.7 Bilirubin,Total 0.7 0.3-1.0 mg/dL Aspartate Amino Transferase 30 13-39 U/L Alanine Aminotransferase 9 7-52 U/L Alkaline Phosphatase 123 34-104 U/L Estimated GFR 4.313 Anion Gap 24.9 6.0-15.0 Creatinine Clr Calc Pharmacy 6.68 C-Reactive Protein Reviewed date:09/23/2024 09:00:48 AM Interpretation: Performing Lab: Notes/Report: C-Reactive Protein 15.1 0.0-0.5 mg/dL Lactic Acid Reviewed date:09/23/2024 09:01:03 AM Interpretation: Performing Lab:, [facility], [place] Notes/Report: Lactic Acid 1.8 0.5-1.9 mmol/L Lactic Acid reference range has been updated to 0.5 ? 1.9 mmol/L and the critical range of 2.0 or greater. Complete Blood Count Auto Di ff Reviewed date:09/23/2024 09:01:51 AM Interpretation: Performing Lab:, [facility], [address] [place] Notes/Report: White Blood Count 16.6 4.1-10.5 [CFU]/mL Uncorrected WBC 16.6 4.1-10.5 10*3/uL Red Blood Count 2.76 3.90-5.60 10*6/uL Hemoglobin 9.5 13.0-17.0 g/dL Hematocrit 28.8 38.8-50.0 % Mean Corpuscular Volume 104.2 83.5-101 fL Mean Corpuscular Hemoglobin 34.3 27.5-35.2 pg Mean Corpuscular HGB Conc 32.9 32.5-35.6 g/dL Red Cell Distribution Width 18.9 12.0-14.8 % Platelet Count 359 150-450 10*3/uL Mean Platelet Volume 9.3 6.6-10.1 fL Erythrocyte Sedimentation Ra te Reviewed date:09/23/2024 09:00:39 AM Interpretation: Performing Lab:, [facility], [address] [place] Notes/Report: Comment please ADD ON to ER labs Erythrocyte Sedimentation Rate >130 0-19 Glucose Poct Glucometers Reviewed date:09/23/2024 09:01:10 AM Interpretation: Performing Lab:, [facility], [address] [place] Notes/Report: Glucose Poc Glucometers 70 Random Glucose Reference Range is dependent on time and content of last meal. Glucose of more than 200 mg/dL in a nonstressed, ambulatory subject supports the diagnosis of Diabetes Mellitus. Commemt1 Glu2: WILL NOTI ANGUS POWER/RN Commemt2 Cleaned Meter Complete Blood Count and Sca n Reviewed date:09/23/2024 09:00:55 AM Interpretation: Performing Lab:, [facility], [address] [place] Notes/Report: For adults in ED, MDW > 20.0 may be associated with a higher risk of sepsis during the first 12 hrs of hospital admission Platelet Estimate Normal Normal Platelet Morphology Normal Normal White Blood Count 16.6 4.1-10.5 [CFU]/mL Uncorrected WBC 16.6 4.1-10.5 10*3/uL Red Blood Count 2.76 3.90-5.60 10*6/uL Hemoglobin 9.5 13.0-17.0 g/dL Hematocrit 28.8 38.8-50.0 % Mean Corpuscular Volume 104.2 83.5-101 fL Mean Corpuscular Hemoglobin 34.3 27.5-35.2 pg Mean Corpuscular HGB Conc 32.9 32.5-35.6 g/dL Red Cell Distribution Width 18.9 12.0-14.8 % Platelet Count 359 150-450 10*3/uL Mean Platelet Volume 9.3 6.6-10.1 fL Monocyte Distribution Width 21.54 0.00-20.00 % Neutrophils % (Auto) 77.5 . % Lymphocytes % (Auto) 9.7 . % Monocytes % (Auto) 10.2 . % Eosinophils % (Auto) 2.5 . % Basophils % (Auto) 0.1 . % NRBC% 0.3 0-0.5 /100{WBC} Neutrophils # (Auto) 12.8 1.8-7.7 10*3/uL Lymphocytes # (Auto) 1.6 1.00-4.8 10*3/uL Monocytes # (Auto) 1.7 0.0-0.8 10*3/uL Eosinophils # (Auto) 0.4 0.0-0.45 10*3/uL Basophils # (Auto) 0.0 0.0-0.2 10*3/uL Polychromasia Moderate Poikilocytosis Moderate Anisocytosis Moderate Macrocytosis Slight Schistocytes Slight Target Cells Slight Rouleaux Moderate Glucose Poct Glucometers Reviewed date:10/13/2024 08:08:41 AM Interpretation: Performing Lab:, [facility], [address] [place] Notes/Report: Glucose Poc Glucometers 75 Random Glucose Reference Range is dependent on time and content of last meal. Glucose of more than 200 mg/dL in a nonstressed, ambulatory subject supports the diagnosis of Diabetes Mellitus. Commemt1 Glu2: Cleaned Meter Glucose Poct Glucometers Reviewed date:10/13/2024 08:06:49 AM Interpretation: Performing Lab:, [facility], [address] [place] Notes/Report: Glucose Poc Glucometers 90 Random Glucose Reference Range is dependent on time and content of last meal. Glucose of more than 200 mg/dL in a nonstressed, ambulatory subject supports the diagnosis of Diabetes Mellitus. Commemt1 Glu2: Cleaned Meter Basic Metabolic Panel Reviewed date:10/13/2024 08:07:21 AM Interpretation: Performing Lab:, [facility], [address] [place] Notes/Report: Glucose 54 70-100 mg/dL Random Glucose Reference Range is dependent on time and content of last meal. Glucose of more than 200 mg/dL in a nonstressed, ambulatory subject supports the diagnosis of Diabetes Mellitus. ADA recommended reference range Blood Urea Nitrogen 42 7-25 mg/dL Sodium 137 136-145 mmol/L Potassium 3.1 3.5-5.1 mmol/L Chloride 99 98-107 mmol/L Carbon Dioxide 21.2 21.0-31.0 mmol/L Calcium 7.6 8.6-10.3 mg/dL Creatinine 12.28 0.70-1.30 mg/dL Estimated GFR 3.895 Anion Gap 19.9 6.0-15.0 Creatinine Clr Calc Pharmacy 6.67 Complete Blood Count Auto Di ff Reviewed date:10/13/2024 08:07:38 AM Interpretation: Performing Lab:, [facility], [address] Notes/Report: White Blood Count 13.3 4.1-10.5 [CFU]/mL Uncorrected WBC 13.3 4.1-10.5 10*3/uL Red Blood Count 2.64 3.90-5.60 10*6/uL Hemoglobin 9.1 13.0-17.0 g/dL Hematocrit 28.2 38.8-50.0 % Mean Corpuscular Volume 106.5 83.5-101 fL Mean Corpuscular Hemoglobin 34.3 27.5-35.2 pg Mean Corpuscular HGB Conc 32.2 32.5-35.6 g/dL Red Cell Distribution Width 20.1 12.0-14.8 % Platelet Count 266 150-450 10*3/uL Mean Platelet Volume 8.9 6.6-10.1 fL Neutrophils % (Auto) 54.2 . % Lymphocytes % (Auto) 31.3 . % Monocytes % (Auto) 10.2 . % Eosinophils % (Auto) 3.7 . % Basophils % (Auto) 0.6 . % NRBC% 0.6 0-0.5 /100{WBC} Neutrophils # (Auto) 7.2 1.8-7.7 10*3/uL Lymphocytes # (Auto) 4.2 1.00-4.8 10*3/uL Monocytes # (Auto) 1.4 0.0-0.8 10*3/uL Eosinophils # (Auto) 0.5 0.0-0.45 10*3/uL Basophils # (Auto) 0.1 0.0-0.2 10*3/uL Glucose Poct Glucometers Reviewed date:10/13/2024 08:06:57 AM Interpretation: Performing Lab:, [facility], [address] [place] Notes/Report: Glucose Poc Glucometers 64 Random Glucose Reference Range is dependent on time and content of last meal. Glucose of more than 200 mg/dL in a nonstressed, ambulatory subject supports the diagnosis of Diabetes Mellitus. Glucose Poct Glucometers Reviewed date:10/15/2024 08:44:02 AM Interpretation: Performing Lab:, [facility], [address] [place] Notes/Report: Glucose Poc Glucometers 80 Random Glucose Reference Range is dependent on time and content of last meal. Glucose of more than 200 mg/dL in a nonstressed, ambulatory subject supports the diagnosis of Diabetes Mellitus. Glucose Poct Glucometers Reviewed date:10/15/2024 08:43:40 AM Interpretation: Performing Lab:, [facility], [address] [place] Notes/Report: Glucose Poc Glucometers 57 Random Glucose Reference Range is dependent on time and content of last meal. Glucose of more than 200 mg/dL in a nonstressed, ambulatory subject supports the diagnosis of Diabetes Mellitus. Commemt1 Glu2: Will Repe at Test Glucose Poct Glucometers Reviewed date:10/15/2024 08:41:21 AM Interpretation: Performing Lab:, [facility], [address] [place] Notes/Report: Glucose Poc Glucometers 66 Random Glucose Reference Range is dependent on time and content of last meal. Glucose of more than 200 mg/dL in a nonstressed, ambulatory subject supports the diagnosis of Diabetes Mellitus. Creatine Kinase Reviewed date:09/12/2024 10:49:47 PM Interpretation: Performing Lab:, [facility], [address] [place] Notes/Report: Creatine Kinase 3135 30-223 U/L the result.Lipemia is present at a level that could Hemolysis is present at a level that could interfere with interfere with the result. Comprehensive Metabolic Pane l Reviewed date:09/12/2024 10:50:21 PM Interpretation: Performing Lab:, [facility], [address] Notes/Report: Glucose 105 70-100 mg/dL Random Glucose Reference Range is dependent on time and content of last meal. Glucose of more than 200 mg/dL in a nonstressed, ambulatory subject supports the diagnosis of Diabetes Mellitus. ADA recommended reference range Blood Urea Nitrogen 31 7-25 mg/dL Creatinine 4.63 0.70-1.30 mg/dL CARLOS/ER, PATIENT @GETS DIALYSIS AND PATIENT IS ALSO A HARD STICK. FELT THAT @REDRAW WOULD BE THE SAME. RELEASED RESULTS, INFORMED @CARLOS/ER OF LEVEL OF INTERFERENCEFROM HIL AND ASKEDHIM TO @NOTIFY DR. SIDDIQI, TO WHICH IS WELL AWARE. RLS Sodium 132 136-145 mmol/L Potassium 3.4 3.5-5.1 mmol/L Chloride 90 98-107 mmol/L Carbon Dioxide 33.4 21.0-31.0 mmol/L Calcium 9.2 8.6-10.3 mg/dL Total Protein 9.3 6.4-8.9 g/dL Albumin Level 3.8 3.5-5.7 g/dL Globulin 5.5 Albumin/Globulin Ratio 0.7 Bilirubin,Total 3.2 0.3-1.0 mg/dL Samples from patients who have taken Naproxen have shown spurious elevation in Total Bilirubin levels. A metabolite of Naproxen, O-desmethylnaproxen, has been shown to interfere with the Jendrassik-Grof method for measuring Total Bilirubin. Aspartate Amino Transferase 282 13-39 U/L Alanine Aminotransferase 38 7-52 U/L Alkaline Phosphatase 91 34-104 U/L Estimated GFR 12.555 Anion Gap 12.0 6.0-15.0 meq/L Creatinine Clr Calc Pharmacy 16.27 Lactic Acid Reviewed date:09/12/2024 10:50:30 PM Interpretation: Performing Lab:, [facility], [address] [place] Notes/Report: Lactic Acid 0.5-1.9 Specimen hemolyzed/severely icteric Lactic Acid reference range has been updated to 0.5 ? 1.9 mmol/L and the critical range of 2.0 or greater. Lipase Reviewed date:09/12/2024 10:49:57 PM Interpretation: Performing Lab: Notes/Report: Lipase 664.0 11.0-82.0 U/L Complete Blood Count and Dif f Reviewed date:09/12/2024 10:50:45 PM Interpretation: Performing Lab:, [facility], [address] Notes/Report: Segmented Neutrophils 71 50-70 % Band Neutrophils 4 0-5 % Lymphocytes 9 18-42 % Monocytes 11 2-11 % Eosinophils 2 1-3 % Anisocytosis Slight Platelet Estimate Normal Normal Large Platelets Slight White Blood Count 23.4 4.1-10.5 10*3/uL Uncorrected WBC 23.4 4.1-10.5 10*3/uL Red Blood Count 2.87 3.90-5.60 10*6/uL Hemoglobin 9.9 13.0-17.0 g/dL Hematocrit 28.9 38.8-50.0 % Mean Corpuscular Volume 100.7 83.5-101 fL Mean Corpuscular Hemoglobin 34.5 27.5-35.2 pg Mean Corpuscular HGB Conc 34.3 32.5-35.6 g/dL Red Cell Distribution Width 17.4 12.0-14.8 % Platelet Count 273 150-450 10*3/uL Mean Platelet Volume 9.7 6.6-10.1 fL Metamyelocytes 1 0-0 % Myelocytes 2 0-0 % Nucleated Red Blood Cell 4 0-0 /100{WBC} Polychromasia Moderate Target Cells Slight Ovalocytes Slight Troponin I High Sensitivity Reviewed date:09/12/2024 10:49:38 PM Interpretation: Performing Lab: Notes/Report: Critical Result : Called to and read back by: LACHELLE FISHMAN at: 09/10/2024 19:17:22 by:[id number] The Troponin units of report have been changed to meet the Chest Pain Accreditation requirement, element EC5.M1l2. Troponin units are changed from pg/ml to ng/L. Also, the decimal is removed and results are in whole numbers. Troponin I High Sensitivity 302 0-20 Troponin I High Sensitivity Reviewed date:09/12/2024 10:49:26 PM Interpretation: Performing Lab:, [facility], [address] Notes/Report: Critical Result : Called to and read back by: UZMA PERLA at: 09/10/2024 20:07:56 by:[id number] The Troponin units of report have been changed to meet the Chest Pain Accreditation requirement, element EC5.M1l2. Troponin units are changed from pg/ml to ng/L. Also, the decimal is removed and results are in whole numbers. Troponin I High Sensitivity 279 0-20 Medications Medication SIG (Take, Route, Frequency, Duration) Notes Start Date End Date Status Tresiba FlexTouch 200 UNIT/ML INJECT 45 UNITS SUBCUTANEOUSLY ONCE EVERY DAY Subcutaneous daily; Duration: 90 days Active Vitamin D (Ergocalciferol) 1.25 MG (33833 UT) TAKE 1 CAPSULE BY MOUTH ONCE EVERY WEEK Active Clopidogrel Bisulfate 75 MG TAKE 1 TAB BY MOUTH ONCE EVERY DAY Active Loperamide HCl 2 MG 2 tablets Orally in the am; Duration: 30 days 10/19/2024 Active Coban Self-Adherent Wrap - as directed 09/25/2022 Active Gabapentin 300 MG 1 capsule Orally 3 times a day Active Vitamin C 500 MG TAKE 1 TAB BY MOUTH ONCE EVERY DAY Active FeroSul 325 (65 Fe) MG TAKE 1 TAB BY MOUTH ONCE EVERY DAY Active Midodrine HCl 5 MG 1 tablet Orally 3 times a day; Duration: 30 days DO NOT TAKE THIRD DOSE IF AFTER 6 PM 10/01/2024 Active DULoxetine HCl 60 MG take 1 capsule by mouth once daily; Duration: 90 Active Folic Acid 1 MG TAKE 1 TAB BY MOUTH ONCE EVERY DAY Active Commode Bedside - place in bedroom next to bed for easy access to bathroom; Duration: 365 days History of CVA with right sided residual, b/l ulcers, cannot get to the bathroom in time, a bedside commode will allow pt independence with ADLs 10/19/2024 Active Atorvastatin Calcium 10 MG take 1 tablet by mouth once daily; Duration: 90 Active Melatonin 5 MG TAKE 1 CAP BY MOUTH DAILY AT BEDTIME Active Docusate Sodium 100 MG 1 capsule Orally Once a day; Duration: 30 days As needed Not-Taking UltiCare Short Pen [place] 31G X 8 MM as directed; Duration: 30 days Active NovoLOG FlexPen 100 UNIT/ML INJECT SUBQ BEFORE MEALS AND DAILY AT BEDTIME PER SLIDING SCALE: 151-200=0U, 201-250=2U, 251-300=4U, 301-350=6U, 350-400=8U, 401-450=10U, >400 ER Active Ammonium Lactate 12 % ONE APPLICATION EXTERNALLY TWICE DAILY Active Immunizations Vaccine Route Administration Date Status [...] with others, in a hotel, in a usp, living outside on the street, on a beach, or in a park) Are you worried about losing your housing? Yes What is the highest level of school that you have finished? More than high school What is your current work situation? Oth erwise unemployed but not seeking work (ex. 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 Stress is when someone feels tense, nervous, anxious, or cant sleep at night because their mind is troubled A little bit In the past year have you sp ent more than 2 nights in a row in a senior care, assisted, nursing home center, or juvenile correctional facility? No What country are you from? [place] Do you feel physically and e motionally safe where you currently live? Yes In the past year, have you b een afraid of your partner or ex-partner? No PRAPARE Score: 7 Tobacco Control (Standard) Question Answer Notes Tobacco use: Current smoker How often do you smoke cigarettes? Every day How many cigarettes a day do you smoke? - Section Notes: smokes 1ppd x 40 yrs, [...] but not interested in quitting,no street drugs Problems Problem Type SNOMED Code ICD Code Onset Dates Problem Status W/U Status Risk Notes Problem Mixed hyperlipidemia (490228419) Mixed hyperlipidemia (E78.2) Active confirmed Problem Tobacco user (876581439) Nicotine dependence, unspecified, uncomplicated (F17.200) Active confirmed Problem End stage renal disease (98054404) End stage renal disease (N18.6) Active confirmed Problem Vitamin D deficiency (44571560) Vitamin D deficiency (E55.9) Active confirmed Problem Hypertension (08608754) Hypertension (I10) Active confirmed Problem Gastroesophageal reflux disease (723027694) GERD (gastroesophageal reflux disease) (K21.9) Active confirmed Problem Chronic pain (30001888) Chronic pain (G89.29) Active confirmed Problem Type II diabetes mellitus well controlled (739485843) Diabetes type 2, controlled (E11.9) Active confirmed Problem Dependence on renal dialysis (542972672) Dependence on renal dialysis (Z99.2) Active confirmed Problem Pulmonary nodule (682861615) Pulmonary nodule (R91.1) Active confirmed Problem Peripheral vascular disease (895525812) PAD (peripheral artery disease) (I73.9) Active confirmed Problem Late effects of cerebrovascular disease (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) History of CVA with residual deficit (I69.30) Active confirmed Problem Lower urinary tract symptoms due to benign prostatic hypertrophy (79636205536785) Benign prostatic hyperplasia with lower urinary tract symptoms (N40.1) Active confirmed Problem Chronic renal failure syndrome (76968356) Chronic kidney disease, unspecified CKD stage (N18.9) Active confirmed Problem Stage 3 skin ulcer with fat layer exposed (L98.492) Active confirmed Vital Signs Heart Rate 83 /min 10/19/2024 Temperature 98.0 degrees Fahrenheit 10/19/2024 Respiratory Rate 18 /min 10/19/2024 Oximetry 97 % 10/19/2024 Blood pressure diastolic 64 mm Hg 10/19/2024 Height 74 in 10/19/2024 Blood pressure systolic 106 mm Hg 10/19/2024 Weight 115 lbs 10/19/2024 BMI 14.76 kg/m2 10/19/2024 Encounters Encounter Location Date Provider Diagnosis [facility] [address] [place] [address] 12/15/2023 [facility] [address] [place] [address] 12/19/2023 [facility] [address] [place] [address] 12/26/2023 [facility] [address] [place] [address] 12/31/2023 [facility] [address] [place] [address] 01/02/2024 [facility] [address] [place] [address] 01/06/2024 [facility] Chronic constipation K59.09 [facility] [place] [address] 04/17/2024 Mervat Spasic Nicotine dependence, unspecified, uncomplicated F17.200 [facility] [address] [place] [address] 06/23/2024 Mervat Spasic Nicotine dependence, unspecified, uncomplicated F17.200 [facility] [address] [place] [address] 06/23/2024 Mervat Spasic Nicotine dependence, unspecified, uncomplicated F17.200 [facility] [address] [place] [address] 07/07/2024 [facility] [address] [place] [address] 07/15/2024 [facility] [address] [place] [address] 08/13/2024 [facility] [address] [place] [address] 09/27/2024 [facility] [address] [place] [address] 09/27/2024 [facility] [address] [place] [address] [facility] type 2, controlled E11.[address] [place] [address] 12/18/2023 [facility] Diabetes type 2, controlled E11.9 ; Nicotine dependence, unspecified, uncomplicated F17.200 ; Vitamin D deficiency E55.9 ; Hypertension I10 ; Mixed hyperlipidemia E78.2 ; Bilateral impacted cerumen H61.23 and History of CVA with residual deficit I69.[address] [place] [address] 07/08/2024 [facility] Nicotine dependence, unspecified, uncomplicated F17.200 ; Diabetes type 2, controlled E11.9 ; End stage renal disease N18.6 ; Dependence on renal dialysis Z99.2 ; Mixed hyperlipidemia E78.2 and Hypertension I10 [address] [address] 12/25/2023 [facility] Nicotine dependence, unspecified, uncomplicated F17.200 and Bilateral impacted cerumen H61.[address] [place] [address] 10/19/2024 [facility] Diabetes type 2, controlled E11.9 ; End stage renal disease N18.6 ; History of CVA with residual deficit I69.30 ; Dependence on renal dialysis Z99.2 and Chronic diarrhea K52.9 [facility] [address] [place] [address] 07/08/2024 Becky Nogueira Lack of access to transportation Z91.89 Assessments Encounter Date Diagnosis (ICD Code) Assessment Notes Treatment Notes Treatment Clinical Notes Section Notes 06/23/2024 Nicotine dependence, unspecified, uncomplicated (ICD-10 - F17.200) 06/23/2024 Nicotine dependence, unspecified, uncomplicated (ICD-10 - F17.200) 12/18/2023 Diabetes type 2, controlled (ICD-10 - [...] or hearling loss go to the ER 04/17/2024 Nicotine dependence, unspecified, uncomplicated (ICD-10 - [...] develop any sores/concern RTO. F/U 3 months 07/08/2024 Lack of access to transportation (ICD-10 - Z91.89) Pt transported to and from appointment 10/20/2024 Diabetes type 2, controlled (ICD-10 - E11.9) 01/06/2024 Chronic constipation (ICD-10 - K59.09) 10/19/2024 Diabetes type 2, controlled (ICD-10 - [...] morning, advised to hold if constipation occurs. 07/08/2024 End stage renal disease (ICD-10 - N18.6) HD, fistula care per dialysis defer care to nephrology 12/18/2023 Vitamin D deficiency (ICD-10 - E55.9) Will check Vit D level, continue Vitamin D replacement as advised. Discussed diet high in Vit D, also 10-15 minutes of direct sunlight is the best source of Vit D. 12/18/2023 Hypertension (ICD-10 - I10) bp is has been running lower, will request med list from [email or web address], will decrease bp medications including losartan to 25 mg and metoprolol to 12.5 mg, changes made and sent with pt to let [facility] nurse be aware. pt is going return next weekend for ear irrigation and bp check 07/08/2024 Dependence on renal dialysis (ICD-10 - Z99.2) see above 10/19/2024 Dependence on renal dialysis (ICD-10 - Z99.2) HD in chest wall free from infection, defer to nephro 10/19/2024 Chronic diarrhea (ICD-10 - K52.9) continue immodium, if starts to get constipated he is to hold the medication. Make sure you are not taking miralax or colace, these where d/c off list and given to patient to provide to [facility] aide. 07/08/2024 Mixed hyperlipidemia (ICD-10 - E78.2) lipid panel every 3-6 months with CMP to monitor liver and renal function, adjust medications accordingly. Discussed a low chol diet. Enc moderate daily exercise. If you develop any muscle cramping, leg cramps/pain, intolerance to medication please RTO. 12/18/2023 Mixed hyperlipidemia (ICD-10 - E78.2) lipid panel every 3-6 months with CMP to monitor liver and renal function, adjust medications accordingly. Discussed a low chol diet. Enc moderate daily exercise. If you develop any muscle cramping, leg cramps/pain, intolerance to medication please RTO. 07/08/2024 Hypertension (ICD-10 - I10) BP below [...] use chair less. will write order today 10/19/2024 Other Body Mass Index : Care Instructions material was published, Body Mass Index: Care Instructions material was printed Plan Of Treatment Pending Test Test Name Order Date A1C with Estimated Average Glu 5 Next Appt Details Provider Name:Mervat Santiago, 11/23/2024 09:00:00 AM, [address] [place], [address], Insurance Providers Payer Name Payer Address Payer Phone Subscriber Number Group Number Insured Name Patient Relationship to Insured Coverage Start Date Coverage End Date [employer] MDCR GOLD PLUS HMO [address] [address] [place] [address] [id number] SIMON HA Self - patient is the insured 3 MEDICAID [place] TO MCARE ADV [address] [place] [address] [phone] [id number] SIMON HA Self - patient is the insured 9 MEDICARE CGS 1 [address] [employer] [facility] [place] [address] [id number] SIMON HA Self - patient is the insured 8 Medications Administered Medication Instructions Date of Administration Dosage Notes Rocephin 500 mg 10/19/2020 250 mg Medical (General) History Medical History History ICD Code LEVEL 6 DM2 HTN neuropathy 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
--- OUTSIDE RECORDS SUMMARY | 2024-10-21 15:13 | XMS_ITS | Encounter Summary ---
Author Organization [facility] Address [address] [place] [address] Phone Care Team Providers Care Physician President Name Role Phone Anton Mcgee DO Primary Care Provider +1- [phone] Encounter Details Date Type Department Care Team (Late st Contact Info) Description 12/05/2021 Orders Only [facility] [address] [place] [address] Conversion, Onbase Social History Tobacco Use Types [...] r Schedule OUTSIDE LAB SCAN Lab Ordered: 12/05/2021 documented as of this encounter Visit Diagnoses Not on filedocumented in this encounter Care Teams Physician President Relationship Specialty Start Date End Date Anton Mcgee DO [address] [facility] [place] [address] PCP - General 04/07/99 documented as of this encounter
--- OUTSIDE RECORDS SUMMARY | 2024-10-21 15:13 | XMS_ITS | Encounter Summary ---
Author Organization [facility] Address [address] [place] [address] Phone Care Team Providers Care Risk Tech Name Role Phone Anton Mcgee DO Primary Care Provider +1- [phone] Encounter Details Date Type Department Care Team (Late st Contact Info) Description 09/12/2024 Scanned Document [facility] [address] [place] [address] Scanning, Generic Provider Social History Tobacco Use Types Packs/Day Years [...] Priority Date/Time Associated Diagnosis Comments ECHOCARDIOGRAM 09/12/2024 documented in this encounter Results * Echocardiogram (09/12/2024) Narrative 09/12/2024 Ordered by an unspecified provider. us Generic Provider Scanning CV ECHO PROCEDURES Fin al Result documented in this encounter Visit Diagnoses Not on filedocumented in this encounter Care Teams Risk Tech Relationship Specialty Start Date End Date Anton Mcgee DO [address] [facility] [place] [address] PCP - General 04/07/99 documented as of this encounter
--- OUTSIDE RECORDS SUMMARY | 2024-10-21 15:14 | XMS_ITS | Clinical Summary ---
Author Organization [facility] Address [facility] [place] [address] Care Team Providers Care Casino Assistant Manager Name Role Phone Anton Mcgee DO Primary Care Provider +1- [phone] Allergies Active Allergy Reactions Criticality Noted Date [...] N ot on file 05/21/2022 Data from: https://www.neighborhoodatlas.medicine.[facility]/. Last address used for calculation [address] [facility] 05/21/2022 Sex and Gender Information Value Date [...] 08/03/2020 Advance Directive Discussion 04/07/2024 Influenza Vaccine (#1) 2024 01/21/2022, 2020 RSV Vaccine (1 - 1-dose 75+ series) [...] 6.3 - 8.0 g/dL 07/18/2022 6:26 AM [facility] Albumin 3.2(L) 3.9 - 4.9 g/dL 07/18/2022 6:26 AM [facility] Calcium, Total 8.6 8.5 - 10.2 mg/dL 07/18/2022 6:26 AM [facility] Bilirubin, Total 0.2 0.2 - 1.3 mg/dL 07/18/2022 6:26 AM [facility] Alkaline Phosphatase 120(H) 38 - 113 U/L 07/18/2022 6:26 AM [facility] AST 20 14 - 40 U/L 07/18/2022 6:26 AM [facility] ALT 10 10 - 54 U/L 07/18/2022 6:26 AM [facility] Glucose 117(H) 74 - 99 mg/dL 07/18/2022 6:26 AM [facility] Comment: The [place] Diabetes Association (ADA) provides guidance for cutoff [...] Standards of Medical Care in Diabetes 2016, [place] Diabetes Association. Diabetes Care. 2016.39(Suppl 1). BUN 73(H) 9 - 24 mg/dL 07/18/2022 6:26 AM [facility] Creatinine 4.66(H) 0.73 - 1.22 mg/dL 07/18/2022 6:26 AM [facility] Sodium 139 136 - 144 mmol/L 07/18/2022 6:26 AM [facility] Potassium 5.3(H) 3.7 - 5.1 mmol/L 07/18/2022 6:26 AM [facility] Chloride 107(H) 97 - 105 mmol/L 07/18/2022 6:26 AM [facility] CO2 21(L) 22 - 30 mmol/L 07/18/2022 6:26 AM [facility] Anion Gap 11 9 - 18 mmol/L 07/18/2022 6:26 AM [facility] Estimated Glomerular Filtration Rate 13(L) >=60 mL/min/1. 73m 07/18/2022 6:26 AM [facility] Comment:Estimated Glomerular Filtration Rate (eGFR) is [...] Kwasi Osullivan MD LABORATORY Final Resul t [facility] [address] [facility] [place] [address], [place] from Last 3 Months or Most Recently Relevant to Health Maintenance Insurance MEDICARE Member Subscriber Plan / Payer (Ef fective 2007-Present) Name:Lonny gallagher Member ID:[id number] Relation to Subscriber:Self Name:Lonny Lott Subscriber ID:[id number] Payer ID:Not on file Group ID:Not on file Type:Medicare Address: [facility] [phone] [place]ICAID [place] MEDICARE Care Teams Casino Assistant Manager Relationship Specialty Start Date End Date Anton Mcgee DO [address] [place] [address] PCP - General Family Medicine 05/06/22
--- OUTSIDE RECORDS SUMMARY | 2024-10-21 15:14 | XMS_ITS | Clinical Summary ---
Author Organization [employer] [facility] tem Address [id number] [address] [place] [address] Care Team Providers Care Shoe Coverer Name Role Phone Katlin Castellanos PA-C Primary Care Provider +1 -[phone] Social History Tobacco Use Types Packs/Day Years [...] on file Insurance MEDICAID [place] Care Teams Shoe Coverer Relationship Specialty Start Date End Date Katlin Castellanos PA-C [facility] [address], [place] [address] PCP - General Physician Water Control Supervisor 07/22/23
== END 2024-10-21 15:02 | disposition home or self-care (01) ==
LOC: WC 15:03
PROVIDERS: Visit Provider Physician Assistant
DX: E11.621 Type 2 diabetes mellitus with foot ulcer (principal); L97.812 Non-pressure chronic ulcer of other part of right lower leg with fat layer exposed; L89.614 Pressure ulcer of right heel, stage 4; L97.512 Non-pressure chronic ulcer of other part of right foot with fat layer exposed
CPT/HCPCS: G0463

== ENCOUNTER 2024-10-28 15:28 | Outpatient (OUT) | payer MEDICARE, MEDICAID, SELFPAY ==
--- OUTSIDE RECORDS SUMMARY | 2012-07-22 10:40 | XMS_ITS | Continuity of Care Document ---
Demographics Address Unknown Address [address] [place] [address] Home Phone Preferred Language en Marital Status Unknown Scientology Affiliation Unknown Race Black or Domonique rican Ethnic Group Unknown Author Organization [facility] Address [address] [place] [address] Phone Care Team Providers Care Talent Acquisition Coordinator Name Role Phone Brigitte BERMEOTico Unavailable Unavailable [...] Diagnoses Date Provider Providers Copied on Encounter [facility], [address] [place] [address], [id number], tel:[phone] [facility] No Information Brigitte GHOSH Tico. [address] [place], [place], [id number], [place]. tel:[phone] [facility], [address] [place] [address], [id number], [place] tel:[phone] [facility] No Information Brigitte GHOSH Tico. [address] [place], [place], [id number], [place]. tel:[phone] [facility], [address] [place] [address], [id number], [place] tel:[phone] [facility] Screening examination for pulmonary tuberculosis Brigitte Ridley. [address] [place] [address], [id number], . tel:[phone] Family History Family Member Type Diagnosis Age At Onset No Information Payers Payer name Insurance type Covered green party ID Authoriza tion(s) No Information Social History [...]
--- OUTSIDE RECORDS SUMMARY | 2024-01-22 04:30 | XMS_ITS ---
Author Organization [facility] [place] Address [address] [place] [address] Care Team Providers Care Rehab Services Aide Name Role Phone None, Unknown or Primary Care Provider Unavailab Jhonny Paulson Unavailable [phone] REASON FOR VISIT RT heel wound debridement, skin substitute Encounters Encounter Location Date Provider Diagnosis [facility] [address] [place] [phone] 01/22/2024 Jhonny Myles Plan Of Treatment No Information Progress Notes * Lonny LOVE EDOB:1949 (74 yo M)Acc No.[id number]:01/22/2024 UNLOCKED PROGRESS NOTE Patient: Lonny MCCLELLAND Provider: Hilda Myles DPM, MS :1950 A ge:73 Y S ex:Male Date:01/22/2024 Address:[address] [place], [place] [phone] Pcp:Unknown or None Check Out:01:05 PM EST * * Electronic signature of Felipe Myles DPM on 10/28/2024 at 03:33 PM EDT Sign off status: Pending Visit Status: C HK (Check Out) * Provider: Hilda Myles DPM, MS Date: Generated for Jeaneth pyle/Jacob/eTransmitting on: 0 10/28/2024 03:33 PM EDT
--- OUTSIDE RECORDS SUMMARY | 2024-09-30 13:00 | XMS_ITS ---
Author Organization [facility] Address [address] [place] [address] Care Team Providers Care Manager Quantitative Name Role Phone Mervat Santiago Primary Care Provider REASON FOR VISIT Diabetic foot ulcer Encounters Encounter Location Date Provider Diagnosis [facility] [address] [facility] [place] [address] 09/30/2024 Mervat Santiago Plan Of Treatment Next Appt Details Provider Name:Mervat Santiago, 11/23/2024 09:00:00 AM, [address], [place], [place], [address], Progress Notes * KATESIMON EDOB:1949 (74 yo M)Acc No.[id number]:09/30/2024 Progress Note Patient: SIMON MCCLELLAND Appointment Provider: Francisco Javier Santiago NP :1950 A ge:74 Y S ex:Male Date:09/30/2024 Address:[address], [place], [place] Subjective: * Chief Complaints: * 1 . Diabetic foot ulcer. * Medical History: Objective: * Vitals: Assessment: Plan: * Treatment: Care Plan: * Problems: * Images: * Electronic signature of [place] Santiago CNP on 10/28/2024 at 03:33 PM EDT Sign off status: Pending * Appointment Provider: Francisco Javier Santiago NP Date: 0 09/30/2024 Generated for Jeaneth pyle/Jacob/Patti on: 0 10/28/2024 03:33 PM EDT
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
--- OUTSIDE RECORDS SUMMARY | 2024-10-28 15:31 | XMS_ITS | Patient Health Record ---
Author Organization [facility] Address [address] [place] [address] Care Team Providers Care Percolator Operator Name Role Phone None, Unknown or Primary Care Provider Unavailab Liam Paulson Unavailable [phone] Results Component Value Reference Range Notes PTT (Not yet reviewed by pro vider) Interpretation: Performing Lab: Notes/Report: [facility] , Partial Thromboplastin Time 28.9 22.3-36.2 sec Performing Lab: see note ML - [facility] Prothrombin Time INR (Not ye t reviewed by provider) Interpretation: Performing Lab: Notes/Report: [facility] , Prothrombin Time 10.7 9.0-11.6 sec INR 1.01 DESIRED INR: 2.0-3.0 CONDITIONS NOT LISTED BELOW 2.5-3.5 FOR PROSTHETIC HEART VALVE REPLACEMENT 2.5-3.5 RECURRENT THROMBOSIS Performing Lab: see note ML - [facility] ECG 12 lead (Not yet reviewe d by provider) Interpretation: Performing Lab: Notes/Report: Source Facility: [place] [address] [place] [address] Electrocardiograph Report Signed Patient: LONNY LOVE MR#: [id number] : 1950 Acct:[id number] Age/Sex: 73 / M ADM Date: 01/08/24 Loc: PST Attending Dr: Liam Myles D.P.M. Ordering Physician: Liam Myles D.P.M. 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 Signed By: 01/08/241951 DD/ 41 TD/TT: Caregiver Assisted Living: [place] [address] Electrocardiograph Report Signed Patient: LONNY LOVE MR#: [id number] : 1950 Acct:[id number] Age/Sex: 73 / M ADM Date: 01/08/24 Loc: PST Attending Dr: Liam Myles D.P.M. Ordering Physician: Liam Myles D.P.M. 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) (Not yet reviewed by provider) Interpretation: Performing Lab: Notes/Report: [facility] , Sodium 131 136-145 mmol/L Potassium 4.3 [...] Performing Lab: see note ML - [facility] XR chest 2V (Not yet reviewe d by provider) Interpretation: Performing Lab: Notes/Report: Source Facility: [place] [address] [place] [address] XRay Report Signed Patient: LONNY LOVE MR#: [id number] : 1950 Acct:[id number] Age/Sex: 73 / M ADM Date: 01/08/24 Loc: PST Attending Dr: Liam Myles D.P.M. Ordering Physician: Liam Myles D.P.M. Date of Service: 01/08/24 Procedure(s): XR chest 2V Accession Number(s): [id number] cc: Liam Myles D.P.M.; Physician,Non-Staff [facility] [place] [address] Patient Name: LONNY LOVE MRN: [id number] date: 1950 Sex: M Assigned Patient Location: [facility] Current Patient Location: [facility] Accession/Order Number: [id number] Exam Date: 01/08/2024 14:50 Report Date: 01/08/2024 [...] lateral view is limited. Electronically authenticated by: ILAM MCCOLLUM Date: 01/08/2024 16:08 Dictated By: Liam Mccollum M.D. Signed By: 01/08/24 1611 DD/ 1608 TD/TT: Caregiver Assisted Living: [place] [address] XRay Report Signed Patient: LONNY LOVE MR#: [id number] : 1950 Acct:[id number] Age/Sex: 73 / M ADM Date: 01/08/24 Loc: LAST Attending Dr: Liam Myles D.P.M. Ordering Physician: Liam Myles D.P.M. Date of Service: 01/08/24 Procedure(s): XR chest 2V Accession Number(s): [id number] cc: Liam Myles D.P.M.; Physician,Non-Staff [facility] [place] [address] Patient Name: LONNY LOVE MRN: [id number] date: 1950 Sex: M Assigned Patient Loc ation: SURGOUT Current Patient Loca tion: [facility] Accession/Order Numb er: [id number] Exam Date: 14:50 Report Date: 01/08/2024 16:08 [...] Mccollum M.D. Signed By: 01/08/24 1611 DD/ 1608 TD/TT: Caregiver Assisted Living: Reason For Referral No Information Problems Problem Type SNOMED Code ICD Code Onset Dates Problem Status W/U Status Risk Notes Problem Foot ulcer due to type 2 diabetes mellitus (3728650071622) Type 2 diabetes mellitus with foot ulcer (E11.621) Active confirmed Problem Pressure injury of right heel stage III (disorder) (77946710095532) Pressure ulcer of right heel, stage 3 (L89.613) Active confirmed Problem Chronic ulcer of foot (340413098) Non-pressure chronic ulcer of right heel and midfoot limited to breakdown of skin (L97.411) Active confirmed Problem Non-pressure chronic ulcer of other part of right foot with fat layer exposed (L97.512) Active confirmed Problem Chronic venous insufficiency (97902916) Chronic venous insufficiency (I87.2) Active confirmed Problem Polyneuropathy due to type 2 diabetes mellitus (590849272) Diabetes mellitus with polyneuropathy (E11.42) Active confirmed Problem Peripheral vascular disease (504473096) Other peripheral vascular diseases (I73.89) Active confirmed Problem Foot ulcer due to type 2 diabetes mellitus (2450161427137) Diabetes mellitus with foot ulcer due to multiple causes (E11.621) Active confirmed Problem Chronic ulcer of foot (236456995) Non-pressure chronic ulcer of right heel and midfoot with fat layer exposed (L97.412) Active confirmed Problem Pressure injury of right heel stage III (disorder) (68257187191361) Decubitus ulcer of right heel, stage 3 (L89.613) Active confirmed Problem Right foot drop (finding) (177903184739574) Acquired right foot drop (M21.371) Active confirmed Problem Chronic ulcer of plantar surface of right midfoot limited to breakdown of skin (L97.411) Active confirmed Problem Pressure injury of right heel stage III (disorder) (00329780815199) Pressure injury of right heel, stage 3 (L89.613) Active confirmed Problem Chronic ulcer of right heel (disorder) (1330011379480566 2) Chronic ulcer of right heel limited to breakdown of skin (L97.411) Active confirmed Encounters Encounter Location Date Provider Diagnosis [facility] [address] [place] [address] 01/22/2024 Liam Myles Plan Of Treatment Pending Test Test Name Order Date PROF CHEM 8 (BAS METB) 01/08/2024 PTT 01/08/2024 ECG 12 lead 01/08/2024 Prothrombin Time INR 01/08/2024 XR chest 2V 01/08/2024 Insurance Providers Payer Name Payer Address Payer Phone Subscriber Number Group Number Insured Name Patient Relationship to Insured Coverage Start Date Coverage End Date [employer] MEDICARE ADV PLAN [address] [address] [place] [address] [id number] Lonny Delgado Self - patient is the insured [place] 2ND INS [address] [place], [place] [id number] Lonny Delgado Self - patient is the insured 5 [place] [address] [place] [address] [id number] Lonny Delgado Self - patient is the insured
--- OUTSIDE RECORDS SUMMARY | 2024-10-28 15:32 | XMS_ITS | Clinical Summary ---
Author Organization [facility] Address [address] [place] [address] Care Team Providers Care Practice Administrator Name Role Phone Unavailable Primary Care Provider [...] Laterality Modality Lower Extremities, Foot Bilateral Radiogra [facility] 09/11/2024 12:5 8 PM EDT Impressions [...] Saenz M.D. 09/11/2024 1:04 PM Dictation Location: [facility] Transcribed By: [facility] 09/11/24 1304 Dictated By: Leobardo Saenz MD 09/11/24 1258 Signed By: <Electronically signed by Leobardo Saenz MD in [place]> 09/11/24 1304 Narrative 09/11/2024 1:06 PM EDT [facility] Main [address] [address] XRay Report Signed Patient: Lonny Lott MR#: [id number] : 1950 Acct:[id number] Age/Sex: 74 / M ADM Date: 09/10/24 Loc: 3T Room: [address] [place] [address] Type: DIS IN Attending Dr: Julian Jones [...] healed fracture deformity involving the second metatarsal. Xxxp-ow-fjoivmkp degenerative changes. Vascular calcifications. Left foot: Prior digit amputations. 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 Yigq-jh-yomprmnx diffuse soft tissue swelling without definite radiopaque foreign body or soft tissue gas. No definite periosteal reaction or osseous erosions. Vascular calcifications.. XR/XR foot BI 3V Procedure Note Radiology, Radiologist, MD - 10/14/2024 [facility] Main [address] [address] XRay Report Signed Patient: Lonny Lott EMR#: [id number] : 1950Acct:[id number] Age/Sex: 74 / MADM Date: 09/10/24 Loc: 3T Room: [id number]: DIS IN Attending Dr: Julian Jones MD [...] Remote healed fracture deformityinvolving the second metatarsal. Jswk-sg-uyzoylre degenerative changes. Vascularcalcifications. Left foot: Prior digit amputations. Evidence of bony ankylosis of thesecond and third metatarsals. Krcw-ek-hozhnluw diffuse soft tissue swelling without definite radiopaqueforeign [...] Saenz M.D. 09/11/2024 1:04 PM Dictation Location: [place] [address] Transcribed By: [facility] 09/11/24 1304 Dictated By: Leobardo Saenz MD 09/11/24 1258 Signed By: <Electronically signed by Leobardo Saenz MD in [place]> 09/11/24 1304 Nathaniel Alonso DPM IMG XR PROCEDURES Edite d Result - Final from Last 3 Months Insurance [facility] MEDICARE ADVANTAGE MEDICAID [place]
--- OUTSIDE RECORDS SUMMARY | 2024-10-28 15:32 | XMS_ITS | Patient Health Record ---
Author Organization [facility] Address [facility] [place] [address] Care Team Providers Care Executive Sales Assistant Name Role Phone Vincenzo Gomez Unavailable [phone] Reason For Referral No Information Plan Of Treatment No Information Insurance Providers Payer Name Payer Address Payer Phone Subscriber Number Group Number Insured Name Patient Relationship to Insured Coverage Start Date Coverage End Date Medicare Part B J-15 Part [facility] [place] [address] [id number] Lonny Delgado Self - patient is the insured Medicaid [place] [employer] [address] [place] [address] [id number] Lonny Delgado Self - patient is the insured
--- OUTSIDE RECORDS SUMMARY | 2024-10-28 15:33 | XMS_ITS | Encounter Summary ---
Author Organization [facility] Address [address] [place] [address] Phone Care Team Providers Care Poured Concrete Wall Technician Name Role Phone Anton Mcgee DO Primary Care Provider +1- [phone] Encounter Details Date Type Department Care Team (Late st Contact Info) Description 01/11/[address] [facility] [address] [place] [address] Conversion, Onbase Social History Tobacco Use Types [...] on filedocumented in this encounter Care Teams Poured Concrete Wall Technician Relationship Specialty Start Date End Date Anton Mcgee DO [address] [facility] [place] [address] PCP - General 04/07/99 documented as of this encounter
--- OUTSIDE RECORDS SUMMARY | 2024-10-28 15:33 | XMS_ITS | Patient Health Record ---
Author Organization [facility] Servic es Address [address] [place] [address] Care Team Providers Care Manager Of Exhibitions And Collections Name Role Phone Mervat Santiago Primary Care Provider [phone] Becky Nogueira [phone] Allergies Allergen (clinical drug ingredient) Drug/Non Drug Allergy documented on EMR Reaction Allergy Type Onset Date Status lisinopril Lisinopril Unknown Drug Allergy Activ e codeine Codeine (uncoded) Unknown Allergy Ac tive Results Component Value Reference Range Notes Hemoglobin A1c Reviewed date:10/19/2024 11:35:24 AM Interpretation:5.8 Performing Lab: Notes/Report: 5.8 Hemoglobin A1c 5.8 5 - 7.9 % Glucose Poct Glucometers Reviewed date:10/15/2024 08:44:38 AM Interpretation: Performing Lab:, [facility], [address] [place] Notes/Report: Glucose Poc Glucometers 229 Random Glucose Reference Range is dependent on time and content of last meal. Glucose of more than 200 mg/dL in a nonstressed, ambulatory subject supports the diagnosis of Diabetes Mellitus. Glucose Poct Glucometers Reviewed date:10/15/2024 08:43:52 AM Interpretation: Performing Lab:, [facility], [address] [place] Notes/Report: Glucose Poc Glucometers 244 Random Glucose Reference Range is dependent on time and content of last meal. Glucose of more than 200 mg/dL in a nonstressed, ambulatory subject supports the diagnosis of Diabetes Mellitus. Glucose Poct Glucometers Reviewed date:10/15/2024 08:43:25 AM Interpretation: Performing Lab:, [facility], [address] [place] Notes/Report: Glucose Poc Glucometers 159 Random Glucose Reference Range is dependent on time and content of last meal. Glucose of more than 200 mg/dL in a nonstressed, ambulatory subject supports the diagnosis of Diabetes Mellitus. ISTAT ABG Reviewed date:10/20/2024 08:43:46 AM Interpretation: Performing Lab:, [facility], [address] , [place] Notes/Report: ISTAT Sodium Level 138 138-146 mmol/L [...] specimens only ISTAT Glucose 63 70-105 mg/dL Lipid Panel Reviewed date:12/31/2023 05:49:51 PM Interpretation: [...] Thyroid Stim Hormone w/Rflx 2.96 0.45-5.33 u[iU]/mL Creatine Kinase Reviewed date:09/12/2024 10:49:47 PM Interpretation: Performing Lab:, [facility], [address], [place] Notes/Report: Creatine Kinase 3135 30-223 U/L the result.Lipemia is present at a level that could Hemolysis is present at a level that could interfere with interfere with the result. Comprehensive Metabolic Pane l Reviewed date:09/12/2024 10:50:21 PM Interpretation: Performing Lab:, [facility], [address], [place] Notes/Report: Glucose 105 70-100 mg/dL Random [...] has been shown to interfere with the Jeremias-Scot method for measuring Total Bilirubin. Aspartate Amino Transferase 282 13-39 U/L Alanine Aminotransferase 38 7-52 U/L Alkaline Phosphatase 91 34-104 U/L Estimated GFR 12.555 Anion Gap 12.0 6.0-15.0 meq/L Creatinine Clr Calc Pharmacy 16.27 Lipase Reviewed date:09/12/2024 10:49:57 PM Interpretation: Performing Lab: Notes/Report: Lipase 664.0 11.0-82.0 U/L Basic Metabolic Panel Reviewed date:10/13/2024 08:07:21 AM Interpretation: Performing Lab:, [facility], [address] Notes/Report: Glucose 54 70-100 mg/dL Random Glucose [...] 19.9 6.0-15.0 Creatinine Clr Calc Pharmacy 6.67 Potassium Reviewed date:10/15/2024 08:32:37 AM Interpretation: Performing Lab:, [facility], [address] Notes/Report: Potassium 3.1 3.5-5.1 mmol/L Comprehensive Metabolic Pane l Reviewed date:09/23/2024 09:01:36 AM Interpretation: Performing Lab:, [facility], [address] Notes/Report: Glucose 49 70-100 mg/dL Critical Result [...] Reviewed date:09/23/2024 09:01:03 AM Interpretation: Performing Lab:, [facility], [place] Notes/Report: Lactic Acid 1.8 0.5-1.9 mmol/L Lactic Acid reference range has been updated to 0.5 ? 1.9 mmol/L and the critical range of 2.0 or greater. Complete Blood Count Auto Di ff Reviewed date:12/31/2023 05:54:01 PM Interpretation: Performing Lab:, [facility], [address] [place] Notes/Report: Reason for Exam Diabetes type 2, [...] 10*3/uL Basophils # (Auto) 0.1 0.0-0.2 10*3/uL Complete Blood Count Auto Di ff Reviewed date:09/23/2024 09:01:51 AM Interpretation: Performing Lab:, [facility], [address] [place] [address] [place] Notes/Report: White Blood Count 16.6 4.1-10.5 [CFU]/mL [...] Reviewed date:09/23/2024 09:00:39 AM Interpretation: Performing Lab:, [facility], [address] Notes/Report: Comment please ADD ON to ER labs Erythrocyte Sedimentation Rate >130 0-19 Complete Blood Count Auto Di ff Reviewed date:10/13/2024 08:07:38 AM Interpretation: Performing Lab:, [facility], [address] Notes/Report: White Blood [...] 10*3/uL Basophils # (Auto) 0.1 0.0-0.2 10*3/uL Lactic Acid Reviewed date:09/12/2024 10:50:30 PM Interpretation: Performing Lab:, [facility], [address] Notes/Report: Lactic Acid 0.5-1.9 Specimen hemolyzed/severely icteric Lactic Acid reference range has been updated to 0.5 ? 1.9 mmol/L and the critical range of 2.0 or greater. Vitamin D 25 Hydroxy Reviewed date:12/31/2023 05:48:01 [...] Society clinical practice guideline. JCEM. 2010; 96(7):1911-30. Comprehensive Metabolic Pane l Reviewed date:12/31/2023 05:49:40 PM Interpretation: Performing Lab:, [facility], [address], [place] Notes/Report: Reason for Exam Diabetes type 2, [...] Estimated GFR 9.004 Anion Gap 14.7 6.0-15.0 ISTAT ABG Reviewed date:10/15/2024 08:32:59 AM Interpretation: Performing Lab:, [facility], [address] Notes/Report: ISTAT Sodium Level 137 138-146 mmol/L [...] specimens only ISTAT Glucose 143 70-105 mg/dL Glucose Poct Glucometers Reviewed date:10/15/2024 08:33:07 AM Interpretation: Performing Lab:, [facility], [address] Notes/Report: Glucose Poc Glucometers 157 Random Glucose Reference Range is dependent on time and content of last meal. Glucose of more than 200 mg/dL in a nonstressed, ambulatory subject supports the diagnosis of Diabetes Mellitus. Glucose Poct Glucometers Reviewed date:10/13/2024 08:06:49 AM Interpretation: Performing Lab:, [facility], [address] Notes/Report: Glucose Poc Glucometers 90 Random Glucose Reference Range is dependent on time and content of last meal. Glucose of more than 200 mg/dL in a nonstressed, ambulatory subject supports the diagnosis of Diabetes Mellitus. Commemt1 Glu2: Cleaned Meter Glucose Poct Glucometers Reviewed date:10/13/2024 08:08:41 AM Interpretation: Performing Lab:, [facility], [address] Notes/Report: Glucose Poc Glucometers 75 Random Glucose Reference Range is dependent on time and content of last meal. Glucose of more than 200 mg/dL in a nonstressed, ambulatory subject supports the diagnosis of Diabetes Mellitus. Commemt1 Glu2: Cleaned Meter Complete Blood Count and Sca n Reviewed date:09/23/2024 09:00:55 AM Interpretation: Performing Lab:, [facility], [address] Notes/Report: For adults in ED, MDW > [...] Slight Rouleaux Moderate Glucose Poct Glucometers Reviewed date:09/23/2024 09:01:10 AM Interpretation: Performing Lab:, [facility], [address] [place] Notes/Report: Glucose Poc Glucometers 70 Random Glucose Reference Range is dependent on time and content of last meal. Glucose of more than 200 mg/dL in a nonstressed, ambulatory subject supports the diagnosis of Diabetes Mellitus. Commemt1 Glu2: WILL NOTI FY /RN Commemt2 Cleaned Meter Glucose Poct Glucometers Reviewed date:10/15/2024 08:41:21 AM Interpretation: Performing Lab:, [facility], [address] [place] Notes/Report: Glucose Poc Glucometers 66 Random Glucose Reference Range is dependent on time and content of last meal. Glucose of more than 200 mg/dL in a nonstressed, ambulatory subject supports the diagnosis of Diabetes Mellitus. Glucose Poct Glucometers Reviewed date:10/15/2024 08:43:40 AM Interpretation: Performing Lab:, [facility], [address] [place] Notes/Report: Glucose Poc Glucometers 57 Random Glucose Reference Range is dependent on time and content of last meal. Glucose of more than 200 mg/dL in a nonstressed, ambulatory subject supports the diagnosis of Diabetes Mellitus. Commemt1 Glu2: Will Repe at Test Glucose Poct Glucometers Reviewed date:10/15/2024 08:44:02 AM Interpretation: Performing Lab:, [facility], [address] [place] Notes/Report: Glucose Poc Glucometers 80 Random Glucose Reference Range is dependent on time and content of last meal. Glucose of more than 200 mg/dL in a nonstressed, ambulatory subject supports the diagnosis of Diabetes Mellitus. Glucose Poct Glucometers Reviewed date:10/13/2024 08:06:57 AM Interpretation: Performing Lab:, [facility], [address] [place] Notes/Report: Glucose Poc Glucometers 64 Random Glucose Reference Range is dependent on time and content of last meal. Glucose of more than 200 mg/dL in a nonstressed, ambulatory subject supports the diagnosis of Diabetes Mellitus. Troponin I High Sensitivity Reviewed date:09/12/2024 10:49:26 PM Interpretation: Performing Lab:, [facility], [address] [place] Notes/Report: Critical Result : Called to and read back by: UZMA PERLA at: 09/10/2024 20:07:56 by:[id number] The Troponin units of report have been changed to meet the Chest Pain Accreditation requirement, element EC5.M1l2. Troponin units are changed from pg/ml to ng/L. Also, the decimal is removed and results are in whole numbers. Troponin I High Sensitivity 279 0-20 Troponin I High Sensitivity Reviewed date:09/12/2024 10:49:38 PM Interpretation: Performing Lab: Notes/Report: Critical Result : Called to and read back by: LACHELLE FISHMAN at: 09/10/2024 19:17:22 by:[id number] The Troponin units of report have been changed to meet the Chest Pain Accreditation requirement, element EC5.M1l2. Troponin units are changed from pg/ml to ng/L. Also, the decimal is removed and results are in whole numbers. Troponin I High Sensitivity 302 0-20 Complete Blood Count and Dif f Reviewed date:09/12/2024 10:50:45 PM Interpretation: Performing Lab:, [facility], [address] [place] Notes/Report: Segmented Neutrophils 71 50-70 % Band [...] Polychromasia Moderate Target Cells Slight Ovalocytes Slight Hemoglobin A1c Reviewed date:12/18/2023 10:44:20 AM Interpretation:8.2 Performing Lab: Notes/Report: 8.2 Hemoglobin A1c 8.2 5 - 7.9 % Medications Medication SIG (Take, Route, Frequency, Duration) Notes Start Date End Date Status Tresiba FlexTouch 200 UNIT/ML INJECT 45 UNITS SUBCUTANEOUSLY ONCE EVERY DAY Subcutaneous daily; Duration: 90 days Active Vitamin D (Ergocalciferol) 1.25 MG (60565 UT) TAKE 1 CAPSULE BY MOUTH ONCE [...] days As needed Not-Taking UltiCare Short [place] 31G X 8 MM as directed; Duration: [...] with others, in a hotel, in a senior living, living outside on the street, on a beach, or in a park) Are you worried about losing your housing? Yes What is the highest level of school that you have finished? More than high school What is your current work situation? Oth erwise unemployed but not seeking work (ex. 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 Stress is when someone feels tense, nervous, anxious, or cant sleep at night because their mind is troubled A little bit In the past year have you sp ent more than 2 nights in a row in a residential, custodial, correction center, or juvenile correctional facility? No [...] W/U Status Risk Notes Problem Mixed hyperlipidemia (601395608) Mixed hyperlipidemia (E78.2) Active confirmed Problem Tobacco user (788477548) Nicotine dependence, unspecified, uncomplicated (F17.200) Active confirmed Problem End stage renal disease (97073496) End stage renal disease (N18.6) Active confirmed Problem Vitamin D deficiency (56370531) Vitamin D deficiency (E55.9) Active confirmed Problem Hypertension (37475905) Hypertension (I10) Active confirmed Problem Gastroesophageal reflux disease (189164906) GERD (gastroesophageal reflux disease) (K21.9) Active confirmed Problem Chronic pain (79376709) Chronic pain (G89.29) Active confirmed Problem Type II diabetes mellitus well controlled (196934978) Diabetes type 2, controlled (E11.9) Active confirmed Problem Dependence on renal dialysis (865466075) Dependence on renal dialysis (Z99.2) Active confirmed Problem Pulmonary nodule (857841858) Pulmonary nodule (R91.1) Active confirmed Problem Peripheral vascular disease (764169245) PAD (peripheral artery disease) (I73.9) Active confirmed Problem Late effects of cerebrovascular disease (404558439) History of CVA with residual deficit (I69.30) Active confirmed Problem Lower urinary tract symptoms due to benign prostatic hypertrophy (35980597979405) Benign prostatic hyperplasia with lower urinary tract symptoms (N40.1) Active confirmed Problem Chronic renal failure syndrome (26737553) Chronic kidney disease, unspecified CKD stage (N18.9) [...] 10/19/2024 Encounters Encounter Location Date Provider Diagnosis [facility] [address] [place] [address] 12/15/2023 [facility] [address] [place] [address] 12/19/2023 [facility] [address] [place] [address] 12/26/2023 [facility] [address] [place] [address] 12/31/2023 [facility] [address] [place] [address] 01/02/2024 [facility] [address] [place] [address] 01/06/2024 [facility] Chronic constipation K59.09 [facility] [address] [place] [address] 04/17/2024 Mervat Spasic Nicotine dependence, unspecified, uncomplicated F17.200 [facility] [address] [place] [address] 06/23/2024 Mervat Spasic Nicotine dependence, unspecified, uncomplicated F17.200 [facility] [address] [place] [address] 06/23/2024 Mervat Spasic Nicotine dependence, unspecified, uncomplicated F17.200 [facility] [address] [place] [address] 07/07/2024 [facility] [address] [place] [address] 07/15/2024 [facility] [address] [place] [address] 08/13/2024 [facility] [address] [place] [address] 09/27/2024 [facility] [address] [place] [address] 09/27/2024 [facility] [address] [place] [address] 10/20/2024 [facility] Diabetes type 2, controlled E11.[address] [place] [address] 12/18/2023 [facility] Diabetes type 2, controlled E11.9 ; Nicotine dependence, unspecified, uncomplicated F17.200 ; Vitamin D deficiency E55.9 ; Hypertension I10 ; Mixed hyperlipidemia E78.2 ; Bilateral impacted cerumen H61.23 and History of CVA with residual deficit I69.[address] [place] [address] 07/08/2024 [facility] Nicotine dependence, unspecified, uncomplicated F17.200 ; Diabetes type 2, controlled E11.9 ; End stage renal disease N18.6 ; Dependence on renal dialysis Z99.2 ; Mixed hyperlipidemia E78.2 and Hypertension I10 [address] [address] 12/25/2023 [facility] Nicotine dependence, unspecified, uncomplicated F17.200 and Bilateral impacted cerumen H61.[address] [place] [address] 10/19/2024 [facility] Diabetes type 2, controlled E11.9 ; End stage renal disease N18.6 ; History of CVA with residual deficit I69.30 ; Dependence on renal dialysis Z99.2 and Chronic diarrhea K52.9 [facility] [address] [place] [address] 07/08/2024 Becky Nogueira Lack of access to transportation Z91.89 Assessments Encounter Date Diagnosis (ICD Code) Assessment Notes Treatment Notes Treatment Clinical Notes Section Notes 12/25/2023 Nicotine dependence, unspecified, uncomplicated (ICD-10 - [...] dependence, unspecified, uncomplicated (ICD-10 - F17.200) 07/08/2024 Lack of access to transportation (ICD-10 - Z91.89) Pt transported to and from appointment 12/18/2023 Nicotine dependence, unspecified, uncomplicated (ICD-10 - F17.200) smoking cessation discussed. Pt verbalized understanding to complication of tobacco use including cardiac and pulmonary disease, as well as stroke. Pt declines interest in this time. 12/18/2023 Diabetes type 2, controlled (ICD-10 - E11.9) A!C is above goal of 7.0, optimal goal is 6.5%. Medication reviewed. Medication changed today. Pt is enc to monitor BS at home, if <70 or >450 go to the ER. Will get update labs today including renal, liver, and thyroid function. will obtain at diaylsis. No longer makes urine 07/08/2024 Nicotine dependence, unspecified, uncomplicated (ICD-10 - F17.200) smoking cessation discussed. Pt verbalized understanding to complication of tobacco use including cardiac and pulmonary disease, as well as stroke. Pt declines interest in this time. 10/19/2024 End stage renal disease (ICD-10 - N18.6) defer to nephology 10/19/2024 Diabetes type 2, controlled (ICD-10 - [...] any sores/concern RTO. F/U 3 months 07/08/2024 Diabetes type 2, controlled (ICD-10 - [...] develop any sores/concern RTO. F/U 3 months 10/20/2024 Diabetes type 2, controlled (ICD-10 - E11.9) 10/19/2024 History of CVA with residual deficit [...] running lower, will request med list from [facility], will decrease bp medications including losartan to 25 mg and metoprolol to 12.5 mg, changes made and sent with pt to let [facility] nurse be aware. pt is going [...] and given to patient to provide to [facility] aide. 12/18/2023 Mixed hyperlipidemia (ICD-10 - E78.2) lipid [...] cramps/pain, intolerance to medication please RTO. 12/18/2023 Bilateral impacted cerumen (ICD-10 - H61.23) pt will be using drops and return next week for irrigation in office. 07/08/2024 Hypertension (ICD-10 - I10) BP below goal of 140/90, pt been more hypotensive, stop the losartan, continue to monitor. Enc daily exercise, low salt diet. Any chest pain, pressure, sob call 911/ER. 12/18/2023 History of CVA with residual deficit [...] Name:Mervat Santiago, 11/23/2024 09:00:00 AM, [address] [place], [address], Insurance Providers Payer Name Payer Address Payer Phone Subscriber Number Group Number Insured Name Patient Relationship to Insured Coverage Start Date Coverage End Date [employer] MDCR GOLD PLUS HMO [address] [address] [place] [address] [phone] [id number] SIMON HA Self - patient is the insured 3 MEDICAID SEC TO MCARE ADV [address] [place] [address] [id number] SIMON HA Self - patient is the insured 9 MEDICARE CGS 1 [address] [employer] [facility] [place] [address] [phone] [id number] SIMON HA Self - patient is the [...] arm fistula 04/2023 Hospitalization History Reason Date(Month/Year) [facility] PICC line, dialysis 10/2024 In and out of [facility] x5 diarrhea, constipa tion 09/2024 FOOT ULCER 08/2022 Stroke 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
--- OUTSIDE RECORDS SUMMARY | 2024-10-28 15:33 | XMS_ITS | Clinical Summary ---
Author Organization [facility] Address [address] [place] [address] Phone Care Team Providers Care A/C Technician Name Role Phone Anton Mcgee DO Primary Care Provider +1- [phone] Encounters Date Type Department Care Team Description 09/12/2024 Scanned Document [facility] [address] [place] [id number] Scanning, Generic Provider from Last 3 Months [...] Last 3 Months Insurance MEDICAID Care Teams A/C Technician Relationship Specialty Start Date End Date Anton Mcgee DO [address] [place] [address] PCP - General 04/07/99
--- OUTSIDE RECORDS SUMMARY | 2024-10-28 15:33 | XMS_ITS | Encounter Summary ---
Author Organization [facility] Address [address] [place] [address] Phone Care Team Providers Care Machine Stuffer Automatic Name Role Phone Anton Mcgee DO Primary Care Provider [phone]- [phone] Encounter Details Date Type Department Care Team (Late st Contact Info) Description 09/12/2024 Scanned Document [facility] [address] [place] [address] Scanning, Generic Provider Social History Tobacco Use [...] on filedocumented in this encounter Care Teams Machine Stuffer Automatic Relationship Specialty Start Date End Date Anton Mcgee DO [address] [facility] [place] [address] PCP - General 04/07/99 documented as of this encounter
--- OUTSIDE RECORDS SUMMARY | 2024-10-28 15:33 | XMS_ITS | Encounter Summary ---
Author Organization [facility] Address [facility] [place] [address] Care Team Providers Care Talent Acquisition Specialist Name Role Phone Anton Mcgee DO Primary Care Provider +1- [phone] Source Comments In the event this information is protected by the Federal Confidentiality of Alcohol and Drug AbusePatient Records regulations: The Federal rules restrict any use of the information to criminally investigate or prosecute any alcohol or drug abuse patient.[facility] Encounter Details Date Type Department Care Team (Late st Contact Info) Description 10/17/2022 Lab Requisition [facility] [place] [address] Pedro Drake MD [address] [place] [address] Social History Tobacco Use Types [...] N ot on file 05/21/2022 Data from: [email or web address]/. Last address used for calculation [address] [...] INHIBITORY CONCENTRATION ([facility]) 10/19/2022 1:58 PM EDT [facility] Comment: Identification performed by client. Micro [...] us Pedro Drake MD LABORATORY Final Result [facility] [address] [address], documented in this encounter Visit Diagnoses Not on filedocumented in this encounter Care Teams Talent Acquisition Specialist Relationship Specialty Start Date End Date Anton Mcgee DO [address] [place] [address] PCP - General Family Medicine 05/06/22 documented as of this encounter
--- OUTSIDE RECORDS SUMMARY | 2024-10-28 15:33 | XMS_ITS | Encounter Summary ---
Author Organization [facility] Address [address] [place] [address] Phone Care Team Providers Care Slat Basket Maker Helper Name Role Phone Anton Mcgee DO Primary Care Provider +1- [phone] Encounter Details Date Type Department Care Team (Late st Contact Info) Description 12/05/2021 Orders Only [facility] [address] [place] [address] Conversion, Onbase Social History Tobacco Use Types [...] on filedocumented in this encounter Care Teams Slat Basket Maker Helper Relationship Specialty Start Date End Date Anton Mcgee DO [address] [facility] [place] [address] PCP - General 04/07/99 documented as of this encounter
--- OUTSIDE RECORDS SUMMARY | 2024-10-28 15:33 | XMS_ITS | Clinical Summary ---
Author Organization [facility] Address [facility] [place] [address] Care Team Providers Care El Teacher Name Role Phone Anton Mcgee DO Primary Care Provider +1- [phone] Allergies Active Allergy Reactions Criticality Noted Date [...] N ot on file 05/21/2022 Data from: https://www.neighborhoodatlas.medicine.[facility]/. Last address used for calculation [address] [facility] 05/21/2022 Sex and Gender Information Value Date [...] 6.3 - 8.0 g/dL 07/18/2022 6:26 AM [facility] Albumin 3.2(L) 3.9 - 4.9 g/dL 07/18/2022 6:26 AM [facility] Calcium, Total 8.6 8.5 - 10.2 mg/dL 07/18/2022 6:26 AM [facility] Bilirubin, Total 0.2 0.2 - 1.3 mg/dL 07/18/2022 6:26 AM [facility] Alkaline Phosphatase 120(H) 38 - 113 U/L 07/18/2022 6:26 AM [facility] AST 20 14 - 40 U/L 07/18/2022 6:26 AM [facility] ALT 10 10 - 54 U/L 07/18/2022 6:26 AM [facility] Glucose 117(H) 74 - 99 mg/dL 07/18/2022 6:26 AM [facility] Comment: The [place] Diabetes Association (ADA) provides guidance for cutoff [...] Standards of Medical Care in Diabetes 2016, [place] Diabetes Association. Diabetes Care. 2016.39(Suppl 1). BUN 73(H) 9 - 24 mg/dL 07/18/2022 6:26 AM [facility] Creatinine 4.66(H) 0.73 - 1.22 mg/dL 07/18/2022 6:26 AM [facility] Sodium 139 136 - 144 mmol/L 07/18/2022 6:26 AM [facility] Potassium 5.3(H) 3.7 - 5.1 mmol/L 07/18/2022 6:26 AM [facility] Chloride 107(H) 97 - 105 mmol/L 07/18/2022 6:26 AM [facility] CO2 21(L) 22 - 30 mmol/L 07/18/2022 6:26 AM [facility] Anion Gap 11 9 - 18 mmol/L 07/18/2022 6:26 AM [facility] Estimated Glomerular Filtration Rate 13(L) >=60 mL/min/1. 73m 07/18/2022 6:26 AM [facility] Comment:Estimated Glomerular Filtration Rate (eGFR) is [...] Kwasi Osullivan MD LABORATORY Final Resul t [facility] [address] [facility] [place] [address], [place] from Last 3 Months or Most Recently Relevant to Health Maintenance Insurance MEDICARE Member Subscriber Plan / Payer (Ef fective 2007-Present) Name:Lonny gallagher Member ID:[id number] Relation to Subscriber:Self Name:Lonny Lott Subscriber ID:[id number] Payer ID:Not on file Group ID:Not on file Type:Medicare Address: [facility] [place] [id number] MEDICAID [place] MEDICARE Care Teams El Teacher Relationship Specialty Start Date End Date Anton Mcgee DO [address] [place] [address] PCP - General Family Medicine 05/06/22
--- OUTSIDE RECORDS SUMMARY | 2024-10-28 15:33 | XMS_ITS | Encounter Summary ---
Author Organization [facility] Address [address] [place] [address] Care Team Providers Care Trestle Builder Name Role Phone Unavailable Primary Care Provider Unavaildilshad e Encounter Details Date Type Department Care Team (Late st Contact Info) Description 09/11/2024 External Result Encounter [facility] External Department Unsolicited Nathaniel Alonso DPM [address] [place] [address] Social History Tobacco Use Types Packs/Day Years [...] Laterality Modality Lower Extremities, Foot Bilateral Radiogra [facility] Imaging 09/11/2024 12:5 8 PM EDT Impressions [...] Saenz M.D. 09/11/2024 1:04 PM Dictation Location: [facility] Transcribed By: BRIANA 09/11/24 1304 Dictated By: Leobardo Saenz MD 09/11/24 1258 Signed By: <Electronically signed by Leobardo Saenz MD in OV> 09/11/24 1304 Narrative 09/11/2024 1:06 PM EDT [facility] [place] [address] XRay Report Signed Patient: Lonny Lott MR#: [id number] : 1950 Acct:[id number] Age/Sex: 74 / M ADM Date: 09/10/24 Loc: 3T Room: [address] [place] [address] Type: DIS IN Attending Dr: Julian Jones [...] healed fracture deformity involving the second metatarsal. Meju-jb-wulrkrcf degenerative changes. Vascular calcifications. Left foot: Prior digit amputations. 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 Rjan-fc-vbfiemcy diffuse soft tissue swelling without definite radiopaque foreign body or soft tissue gas. No definite periosteal reaction or osseous erosions. Vascular calcifications.. XR/XR foot BI 3V Procedure Note Radiology, Radiologist, - 10/14/2024 [facility] [address] [address] XRay Report Signed Patient: Lonny Lott EMR#: [id number] : 1950Acct:[id number] Age/Sex: 74 / MADM Date: 09/10/24 Loc: 3T Room: [id number]: DIS IN Attending Dr: Julian Jones MD [...] Remote healed fracture deformityinvolving the second metatarsal. Cliw-ha-neposqsd degenerative changes. Vascularcalcifications. Left foot: Prior digit amputations. Evidence of bony ankylosis of thesecond and third metatarsals. Jcru-lw-cudazmnb diffuse soft tissue swelling without definite radiopaqueforeign [...] Saenz M.D. 09/11/2024 1:04 PM Dictation Location: [place] [address] Transcribed By: [facility] 09/11/24 1304 Dictated By: Leobardo Saenz MD 09/11/24 1258 Signed By: <Electronically signed by Leobardo Saenz MD in OV> 09/11/24 1304 Nathaniel Alonso DPM IMG XR PROCEDURES Edite d Result - Final documented in this encounter Visit Diagnoses Not on filedocumented in this encounter
--- OUTSIDE RECORDS SUMMARY | 2024-10-28 15:33 | XMS_ITS | Clinical Summary ---
Author Organization [facility] tem Address [id number] [address] [place] [address] Care Team Providers Care Bandoleer Packer Name Role Phone Katlin Castellanos PA-C Primary Care Provider +1 -[phone] Social History Tobacco Use Types Packs/Day Years [...] on file Insurance MEDICAID [place] Care Teams Bandoleer Packer Relationship Specialty Start Date End Date Katlin Castellanos PA-C [facility] [address] [place] [address] PCP - General Physician Academic Tutor 07/22/23
== END 2024-10-28 15:29 | disposition home or self-care (01) ==
LOC: WC 15:29
PROVIDERS: Visit Provider Podiatrist Foot & Ankle Surgery
DX: E11.621 Type 2 diabetes mellitus with foot ulcer (principal); L97.422 Non-pressure chronic ulcer of left heel and midfoot with fat layer exposed; L97.812 Non-pressure chronic ulcer of other part of right lower leg with fat layer exposed; L89.614 Pressure ulcer of right heel, stage 4; L97.415 Non-pressure chronic ulcer of right heel and midfoot with muscle involvement without evidence of necrosis; L97.425 Non-pressure chronic ulcer of left heel and midfoot with muscle involvement without evidence of necrosis; L97.512 Non-pressure chronic ulcer of other part of right foot with fat layer exposed
CPT/HCPCS: 11043

== ENCOUNTER 2024-11-30 09:04 | Outpatient (OUT) | payer MEDICARE, MEDICAID, SELFPAY ==
--- OUTSIDE RECORDS SUMMARY | 2024-11-30 09:08 | XMS_ITS | Clinical Summary ---
Author Organization [facility] Address [address] [place] [address] Phone Care Team Providers Care Recreational Programs Director Name Role Phone Anton Mcgee DO Primary Care Provider +1- [phone] Encounters Date Type Department Care Team Description 09/12/2024 Scanned Document [facility] [address] [place] [id number] Scanning, Generic Provider from Last 3 Months [...] 1950 Sigmoidoscopy 1950 Yearly Adult Physical 1950 MMR Vaccines (1 of 1 - Stand sisi series) 1951 HIB Vaccines (1 of 1 - Risk [...] Last 3 Months Insurance MEDICAID Care Teams Recreational Programs Director Relationship Specialty Start Date End Date Anton Mcgee DO [address] [place] [address] PCP - General 04/07/99
--- OUTSIDE RECORDS SUMMARY | 2024-11-30 09:08 | XMS_ITS | Clinical Summary ---
Author Organization [facility] [place] [address] Care Team Providers Care Snagger Name Role Phone Anton Mcgee DO Primary Care Provider +1- [phone] Allergies Active Allergy Reactions Criticality Noted Date [...] N ot on file 05/21/2022 Data from: https://www.neighborhoodatlas.medicine.[facility]/. Last address used for calculation [address] [facility] 05/21/2022 Sex and Gender Information Value [...] 2000 Shingrix Vaccine (1 of 2) 2000 Advance Directive Discussion 04/07/2024 Influenza Vaccine (#1) [...] 6.3 - 8.0 g/dL 07/18/2022 6:[address] [facility] Albumin 3.2(L) 3.9 - 4.9 g/dL 07/18/2022 6:[address] [facility] Calcium, Total 8.6 8.5 - 10.2 mg/dL 07/18/2022 6:[address] [facility] Bilirubin, Total 0.2 0.2 - 1.3 mg/dL 07/18/2022 6:[address] [facility] Alkaline Phosphatase 120(H) 38 - 113 U/L 07/18/2022 6:[address] [facility] AST 20 14 - 40 U/L 07/18/2022 6:[address] [facility] ALT 10 10 - 54 U/L 07/18/2022 6:[address] [facility] Glucose 117(H) 74 - 99 mg/dL 07/18/2022 6:[address] [facility] Comment: The [place] Diabetes Association (ADA) provides guidance for cutoff [...] Standards of Medical Care in Diabetes 2016, [place] Diabetes Association. Diabetes Care. 2016.39(Suppl 1). BUN 73(H) 9 - 24 mg/dL 07/18/2022 6:[address] [facility] Creatinine 4.66(H) 0.73 - 1.22 mg/dL 07/18/2022 6:[address] [facility] Sodium 139 136 - 144 mmol/L 07/18/2022 6:[address] [facility] Potassium 5.3(H) 3.7 - 5.1 mmol/L 07/18/2022 6:[address] [facility] Chloride 107(H) 97 - 105 mmol/L 07/18/2022 6:[address] [facility] CO2 21(L) 22 - 30 mmol/L 07/18/2022 6:[address] [facility] Anion Gap 11 9 - 18 mmol/L 07/18/2022 6:[address] [facility] Estimated Glomerular Filtration Rate 13(L) >=60 mL/min/1. 73m 07/18/2022 6:[address] [facility] Comment:Estimated Glomerular Filtration Rate (eGFR) [...] Kwasi Osullivan MD LABORATORY Final Resul t [facility] [address] [place] [address], [place] from Last 3 Months or Most Recently Relevant to Health Maintenance Insurance MEDICARE MEDICAID [place] MEDICARE Care Teams Snagger Relationship Specialty Start Date End Date Anton Mcgee DO [address] [place] [address] PCP - General Family Medicine 05/06/22
--- OUTSIDE RECORDS SUMMARY | 2024-11-30 09:08 | XMS_ITS | Encounter Summary ---
Author Organization [facility] Address [address] [place] [address] Care Team Providers Care Residential Subcontractor Name Role Phone Unavailable Primary Care Provider Maryellen e Encounter Details Date Type Department Care Team (Late st Contact Info) Description 09/11/2024 External Result Encounter [facility] External Department Unsolicited Nathaniel Alonso DPM [address] [place] [address] Social History Tobacco Use Types Packs/Day Years [...] Laterality Modality Lower Extremities, Foot Bilateral Radiogra [facility] Imaging 09/11/2024 12:5 8 PM EDT Impressions [...] Saenz M.D. 09/11/2024 1:04 PM Dictation Location: [facility] Transcribed By: BRIANA 09/11/24 1304 Dictated By: Leobardo Saenz MD 09/11/24 1258 Signed By: <Electronically signed by Leobardo Saenz MD in OV> 09/11/24 1304 Narrative 09/11/2024 1:06 PM EDT [facility] [place] [address] XRay Report Signed Patient: Lonny Lott MR#: [id number] : 1950 Acct:[id number] Age/Sex: 74 / M ADM Date: 09/10/24 Loc: 3T Room: [address] [place] [address] Type: DIS IN Attending Dr: Julian Jones [...] healed fracture deformity involving the second metatarsal. Mpml-xp-ukoesdtx degenerative changes. Vascular calcifications. Left foot: Prior digit amputations. 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 Vgbp-gg-wmfqmuak diffuse soft tissue swelling without definite radiopaque foreign body or soft tissue gas. No definite periosteal reaction or osseous erosions. Vascular calcifications.. XR/XR foot BI 3V Procedure Note Radiology, Radiologist, - 10/14/2024 [facility] [address] [address] XRay Report Signed Patient: Lonny Lott EMR#: [id number] : 1950Acct:[id number] Age/Sex: 74 / MADM Date: 09/10/24 Loc: 3T Room: [id number]: DIS IN Attending Dr: Julian Jones MD [...] Remote healed fracture deformityinvolving the second metatarsal. Esil-ld-kvpluevv degenerative changes. Vascularcalcifications. Left foot: Prior digit amputations. Evidence of bony ankylosis of thesecond and third metatarsals. Zwbo-ay-unxvtftm diffuse soft tissue swelling without definite radiopaqueforeign [...] Saenz M.D. 09/11/2024 1:04 PM Dictation Location: [place] [address] Transcribed By: [facility] 09/11/24 1304 Dictated By: Leobardo Saenz MD 09/11/24 1258 Signed By: <Electronically signed by Leobardo Saenz MD in OV> 09/11/24 1304 Nathaniel Alonso DPM IMG XR PROCEDURES Edite d Result - Final documented in this encounter Visit Diagnoses Not on filedocumented in this encounter
--- OUTSIDE RECORDS SUMMARY | 2024-11-30 09:08 | XMS_ITS | Encounter Summary ---
Author Organization [facility] Address [address] [place] [address] Phone Care Team Providers Care Charging Manipulator Name Role Phone Anton Mcgee DO Primary Care Provider +1- [phone] Encounter Details Date Type Department Care Team (Late st Contact Info) Description 12/05/2021 Orders Only [facility] [address] [place] [address] Conversion, Onbase Social History Tobacco Use Types [...] on filedocumented in this encounter Care Teams Charging Manipulator Relationship Specialty Start Date End Date Anton Mcgee DO [address] [facility] [place] [address] PCP - General 04/07/99 documented as of this encounter
--- OUTSIDE RECORDS SUMMARY | 2024-11-30 09:08 | XMS_ITS | Encounter Summary ---
Author Organization [facility] Address [address] [place] [address] Phone Care Team Providers Care Train Examiner Name Role Phone Anton Mcgee DO Primary Care Provider +1- [phone] Encounter Details Date Type Department Care Team (Late st Contact Info) Description 01/11/2022 Orders Only [facility] [address] [place] [address] Conversion, Onbase Social History Tobacco Use Types [...] on filedocumented in this encounter Care Teams Train Examiner Relationship Specialty Start Date End Date Anton Mcgee DO [address] [facility] [place] [address] PCP - General 04/07/99 documented as of this encounter
--- OUTSIDE RECORDS SUMMARY | 2024-11-30 09:08 | XMS_ITS | Encounter Summary ---
Author Organization [facility] Address [address] [place] [address] Phone Care Team Providers Care Preconstruction Manager Name Role Phone Anton Mcgee DO Primary Care Provider +1- [phone] Encounter Details Date Type Department Care Team (Late st Contact Info) Description 09/12/2024 Scanned Document [facility] [address] [place] [id number] Scanning, Generic Provider Social History Tobacco Use [...] on filedocumented in this encounter Care Teams Preconstruction Manager Relationship Specialty Start Date End Date Anton Mcgee DO [address] [facility] [place] [address] PCP - General 04/07/99 documented as of this encounter
--- OUTSIDE RECORDS SUMMARY | 2024-11-30 09:08 | XMS_ITS | Encounter Summary ---
Author Organization [facility] Address [facility] [place] [address] Care Team Providers Care Airfield Engineer Officer Name Role Phone Anton Mcgee DO Primary Care Provider +1- [phone] Source Comments In the event this information is protected by the Federal Confidentiality of Alcohol and Drug AbusePatient Records regulations: The Federal rules restrict any use of the information to criminally investigate or prosecute any alcohol or drug abuse patient.[facility] Encounter Details Date Type Department Care Team (Late st Contact Info) Description 10/17/2022 Lab Requisition [facility] [place] [address] Pedro Drake MD [address] [place] [address] Social History Tobacco Use Types [...] N ot on file 05/21/2022 Data from: https://www.neighborhoodatlas.[facility]/. Last address used for calculation [address] [...] INHIBITORY CONCENTRATION ([facility]) 10/19/2022 1:58 PM EDT [facility] Comment: Identification performed by client. Micro [...] us Pedro Drake MD LABORATORY Final Result [facility] [address] [address], documented in this encounter Visit Diagnoses Not on filedocumented in this encounter Care Teams Airfield Engineer Officer Relationship Specialty Start Date End Date Anton Mcgee DO [address] [place] [address] PCP - General Family Medicine 05/06/22 documented as of this encounter
--- OUTSIDE RECORDS SUMMARY | 2024-11-30 09:08 | XMS_ITS | Clinical Summary ---
Author Organization [facility] tem Address [id number] [address] [place] [address] Care Team Providers Care Converting Supervisor Name Role Phone Katlin Castellanos PA-C Primary Care Provider +1 -[phone] Social History Tobacco Use Types Packs/Day Years [...] on file Insurance MEDICAID [place] Care Teams Converting Supervisor Relationship Specialty Start Date End Date Katlin Castellanos PA-C [facility] [address] [place] [address] PCP - General Physician Rn Ccu 07/22/23
== END 2024-11-30 09:05 | disposition home or self-care (01) ==
LOC: WC 09:05
PROVIDERS: Visit Provider Physician Assistant
DX: E11.621 Type 2 diabetes mellitus with foot ulcer (principal); L97.422 Non-pressure chronic ulcer of left heel and midfoot with fat layer exposed; L89.614 Pressure ulcer of right heel, stage 4; L97.415 Non-pressure chronic ulcer of right heel and midfoot with muscle involvement without evidence of necrosis
CPT/HCPCS: 11043

== ENCOUNTER 2024-12-21 13:02 | Outpatient (OUT) | payer MEDICARE, MEDICAID, SELFPAY | END 2024-12-21 13:03 | disposition home or self-care (01) | LOC: WC 13:02 | PROVIDERS: Visit Provider Physician Assistant | DX: E11.621 Type 2 diabetes mellitus with foot ulcer (principal); L97.422 Non-pressure chronic ulcer of left heel and midfoot with fat layer exposed; L89.614 Pressure ulcer of right heel, stage 4; L97.415 Non-pressure chronic ulcer of right heel and midfoot with muscle involvement without evidence of necrosis | CPT/HCPCS: 11043; 11046 ==

== ENCOUNTER 2025-01-18 13:52 | Outpatient (OUT) | payer MEDICARE, MEDICAID, SELFPAY ==
--- OUTSIDE RECORDS SUMMARY | 2024-01-22 04:30 | XMS_ITS ---
Author Organization [facility] [place] Address [address] [place] [address] Care Team Providers Care General Road Foreman Name Role Phone None, Unknown or Primary Care Provider Unavailab Jhonny Paulson Unavailable [phone] REASON FOR VISIT RT heel wound debridement, skin substitute Encounters Encounter Location Date Provider Diagnosis [facility] [address] [place] [phone] 01/22/2024 Jhonny Myles Plan Of Treatment No Information Progress Notes * Lonny LOVE EDOB:1949 (74 yo M)Acc No.[id number]:01/22/2024 UNLOCKED PROGRESS NOTE Patient: Lonny MCCLELLAND Provider: Hilda Myles DPM, MS :1950 A ge:73 Y S ex:Male Date:01/22/2024 Address:[address] [place], [place] [phone] Pcp:Unknown or None Check Out:01:05 PM EST * * Electronic signature of Felipe Myles DPM on 01/18/2025 at 01:59 PM EDT Sign off status: Pending Visit Status: C HK (Check Out) * Provider: Hilda Myles DPM, MS Date: Generated for Jeaneth pyle/Jacob/eTransmitting on: 01:59 PM EDT
--- OUTSIDE RECORDS SUMMARY | 2024-09-30 13:00 | XMS_ITS ---
Author Organization [facility] Address [address] [place] [address] Care Team Providers Care Plastic Dolls Mold Filler Name Role Phone Mervat Santiago Primary Care Provider REASON FOR VISIT Diabetic foot ulcer Encounters Encounter Location Date Provider Diagnosis [facility] [address] [facility] [address] 09/30/2024 Mervat Santiago Plan Of Treatment Next Appt Details Provider Name:Mervat Santiago, 01/25/2025 09:45:00 AM, [address] [facility] [place], [place], [address], Progress Notes * SIMON LOVE EDOB:1949 (74 yo M)Acc No.[id number]:09/30/2024 Progress Note Patient: SIMON MCCLELLAND Appointment Provider: Francisco Javier Santiago NP :1950 A ge:74 Y S ex:Male Date:09/30/2024 Address:[address], [place], [place] Subjective: * Chief Complaints: * D iabetic foot ulcer Billing Information: * Procedure Codes: * Electronic signature of [place]on Santiago CNP on 01/18/2025 at 01:59 PM EDT Sign off status: Pending * Appointment Provider: Francisco Javier Santiago NP Date: 0 09/30/2024 Generated for Katei lashanda/Jacob/eTransmitting on: 1 01:59 PM EDT
--- OUTSIDE RECORDS SUMMARY | 2024-10-07 07:00 | XMS_ITS ---
Author Organization [facility] Address [address] [place] [address] Care Team Providers Care Acid Conditioner Name Role Phone Mervat Santiago Primary Care Provider REASON FOR VISIT 3month f/u Encounters Encounter Location Date Provider Diagnosis [facility] [address] [facility] [place] [address] 10/07/2024 Mervat Santiago Plan Of Treatment Next Appt Details Provider Name:Mervat Santiago, 01/25/2025 09:45:00 AM, [address] [facility], [place], [address], Progress Notes * SIMON LOVE EDOB:1949 (74 yo M)Acc No.[id number]:10/07/2024 Progress Notes Patient: Graciela CURZ SIMON Hughes Appointment Provider: Francisco Javier Santiago NP :1950 A ge:74 Y S ex:Male Date:10/07/2024 Address:[address], [place], [place] Subjective: * Chief Complaints: * 3 month f/u Billing Information: * Procedure Codes: * Electronic signature of [place]on Santiago CNP on 01/18/2025 at 02:00 PM EDT Sign off status: Pending * Appointment Provider: Francisco Javier Santiago NP Date: 0 10/07/2024 Generated for Printi ng/Faxing/eTransmitting on: 1 02:00 PM EDT
--- OUTSIDE RECORDS SUMMARY | 2025-01-13 11:16 | XMS_ITS | Continuity of Care Document ---
Author Organization [facility] Address [address] [place] [address] Phone Care Team Providers Care Line Crew Supervisor Name Role Phone Mervat Santiago CLOTH CALENDER-C Primary Care Provider Fawad Rocha MD Attending Provider Fawad Rocha MD Other Provider Yisel Andrade MD Attending Provider NON STAFF Primary Care Provider Anna Malave Attending Provider Jailene Argueta CLOTH CALENDER-C Attending Provider [phone] Care Teams Patient Care Team Team Status: Active Member Role Status Dates NON STAFF Primary Care Provider Active Visit Care Team Team Status: Active Member Role Status Dates Mervat Santiago CLOTH CALENDER-C Primary Care Provider Active Start: October 15, 2024 Fawad Rocha MD Attending Provider Active S tart: October 15, 2024 Fawad Rocha MD Other Provider Active Start : October 15, 2024 Visit Care Team Team Status: Active Member Role Status Dates Mervat Santiago CLOTH CALENDER-C Primary Care Provider Active Start: October 28, 2024 Yisel Andrade MD Attending Provider Active Star t: October 28, 2024 Visit Care Team Team Status: Inactive Member Role Status Dates Yisel Andrade MD Attending Provider Active Star t: November 12, 2024 End: November 12, 2024 Visit Care Team Team Status: Active Member Role Status Dates NON STAFF Primary Care Provider Active Start: November 28, 2024 Olga Lidia Martin MD Attending Provider Active Start : November 28, 2024 Visit Care Team Team Status: Inactive Member Role Status Dates Olga Lidia Martin MD Attending Provider Active Start : December 06, 2024 End: December 06, 2024 Visit Care Team Team Status: Inactive Member Role Status Dates Fawad Rocha MD Attending Provider Active S tart: December 07, 2024 End: December 07, 2024 NON STAFF Primary Care Provider Active Start: December 07, 2024 End: December 07, 2024 Visit Care Team Team Status: Inactive Member Role Status Dates NON STAFF Primary Care Provider Active Start: January 04, 2025 End: January 04, 2025 ELÍAS [place] Attending Provider Active Start: January 04, 2025 End: January 04, 2025 Patient Care Team Team Status: Active Member Role Status Dates NON STAFF Primary Care Provider Active Start: January 13, 2025 Fawad Rocha MD Attending Provider Active S tart: January 13, 2025 Fawad Rocha MD Other Provider Active Start : January 13, 2025 Chief Complaint and Reason for Visit Chief Complaint Admit Date Dialysis cath insert October 15, 2024 5:2 7am E87.6 November 12, 2024 11: 47am Hyperkalemia December 06, 2024 11:50am EVAL FOR NEW ACCESS; V MAP 12P December 07, 2024 11:15am GO OVER VEIN MAPPING DONE 12/07/24 IN OFFI CE January 04, 2025 9:16am ESRD January 13, 2025 10 :25am Reason for Visit Admit Date End-stage renal disease on hemodialysis January 04, 2025 9:16am Reason for Referral Referring Provider Name Referring Provider Address Referring Provider Phone Referral Date Requested Appointment Date Referral Reason Fawadsunni Rocha [address] [address] Work Phone: Call for appointment to schedule next procedure Fawad Rocha [address] [address] Work Phone: Call for appointment to schedule next procedure Call for appointment. I would like to see you in 2 to 3 weeks if no problems before hand Allergies, Adverse Reactions, Alerts Allergen Type Severity Reaction Last Updated Verified Status Comments codeine Allergy Unknown Unknown Reaction January 13, 2025 10:47am Yes Active It just doesn't feel right lisinopril Allergy Unknown Swelling of Lip/Tongue/Throa t, anaphylaxis January 13, 2025 10:47am Yes Active Social History Smoking Status Status Start Date End Date Date of Observa tion Smokes tobacco daily (finding) January 13, 2025 10:35am Observation Status Observation Response Date of Response Legal Sex Male (finding) Sex Assigned At Male [birth year] Family History Relationship Condition Age at Onset [...] 40 MG PO Daily 2016 12:00a m 2020 1:42p m Atorvastati n 40 mg tablet Discont inued 40 MG PO Daily 2016 12:00a m 2020 10:40 am Amitriptyli ne 50 mg tablet Discont inued 25 MG PO Daily 2016 12:00a m 2020 10:40 am Potassium Chloride 20 mEq tablet,ER particles/c rystals Discont inued 30 MEQ PO Daily 2016 12:00a m Octob er 2019 9:53a m Tamsulosin (Flomax) 0.4 mg capsule,ext ended release 24hr Discont inued 0.4 MG PO Twice daily 2016 12:00a m Janua ry 2022 11:08 am Gabapentin 800 mg tablet Discont inued 800 MG PO Twice daily 2016 12:00a m [facility] stefanie 2019 10:06 am Insulin Aspart U-100 [...] Instruction s: Call Provider 2016 12:00a m [facility] 2019 10:30 am . Please contact the information source for Protocol details. Multivitami n Tablet Discont inued 1 TAB PO Daily 2016 12:00a m Febru beti 2020 1:43p m Ferrous Sulfate 325 mg (65 mg iron) Tablet Discont inued 325 MG PO Daily 2016 12:00a m Octob er 2019 9:52a m Aspirin 81 mg Tablet,Chew able Discont inued 81 MG PO Daily 2016 12:00a m 2020 1:39p m Vitamin B Complex Capsule Discont inued 1 CAP PO Daily 2016 12:00a m 2020 1:45p m Amoxicillin -Pot Clavulanate (Augmentin) 875-125 mg Tablet Discont inued 2016 12:00a m October 13, 2019 9:55a m Duloxetine 20 mg capsule,del ayed release(DR/ EC) Discont inued 2016 12:00a m October 13, 2019 10:01 am Cholecalcif jeremie (Vitamin D3) (Vitamin D3) 2,000 unit Capsule Discont inued 2000 UNIT PO Daily 2016 12:00a m [facility]2020 1:40p m Lactobacill us Combination No.4 (Probiotic) 3 billion cell Capsule Discont inued 2016 12:00a m Septe mber 2019 8:19a m Plecanatide (Trulance) 3 mg tablet Discont inued 3 MG PO Daily 30 2016 12:00a m Octob er 2019 9:53a m Gabapentin (Neurontin) 800 mg Tablet Discont inued 800 MG PO Three times daily Octobe r 2019 12:00a m Augus t 2021 7:18p m Acetaminoph en (Tylenol) 325 mg Tablet Discont inued 650 MG PO Q4H as needed for Pain Decemb er 2019 1:00am October 21, 2022 12:42 pm Duloxetine 20 mg Capsule,Del ayed Release(Dr/ Ec) Discont inued 60 MG PO Twice daily Decemb er 2019 1:00am September 10, 2022 4:38p m Potassium Chloride (Klor-Con M20) 20 mEq Tablet,Er Particles/C rystals Discont inued 20 MEQ PO Twice daily Decemb er 2019 1:00am u 2020 1:44p m Insulin Aspart U-100 (Novolog U-100 Insulin Aspart) 100 unit/mL Solution Discont inued 6 UNIT SUBCUT Daily Decemb er 2019 1:00am 2020 1:42p m with supper Insulin Aspart U-100 [...] s: STARTING AT 150MG AT BG CHECKS [facility] 2019 1:00am 151-200 0 units 201-250 2 units 251-300 4units 301-350 6 units 351-400 8 units 401-450 10 units over 400 call doctor Please contact the information source for Protocol details. Complies with drug therapy Ferrous Sulfate 325 mg (65 mg iron) Tablet Discont inued 325 MG PO Daily [facility] 2019 1:00am 2020 1:41p m Losartan 25 mg Tablet Discont inued 25 MG PO Daily [facility] 2019 1:00am [email or web address] 1:35p m Dextrometho rphan-Benzo macy (Cepacol Sore Throat-Coug h) 5-7.5 mg Lozenge Discont inued 1 LOZENG E PO Q4H as needed for Sore Throat [facility] er 2019 1:00am Febru [email or web address] 1:41p m Alpha Lipoic Acid 300 mg Capsule Discont inued 200 MG PO Daily [facility] er 2019 1:00am October 21, 2022 12:42 pm Lactobacill us Combination No.4 (Probiotic) 3 billion cell Capsule Discont inued 3000 MMU CELLS PO Daily [facility] er 2019 1:00am Febru [email or web address] 1:43p m Plecanatide (Trulance) 3 mg Tablet Discont inued 3 MG PO Daily [facility] er 2019 1:00am Febru [email or web address] 1:44p m Cephalexin 500 mg Capsule Discont inued 1000 MG PO Q12H 40 10 September 16, 2020 12:00a m [facility]2021 1:34p m Tamsulosin (Flomax) 0.4 mg Capsule Discont inued 0.4 MG PO Twice daily July 17, 2022 12:00a m September 14, 2024 1:10p m Duloxetine 60 mg capsule,del ayed release(DR/ EC) Active 60 MG PO Daily at bedtime September 10, 2022 12:00a m Complies with drug therapy Meropenem 500 mg Recon Soln Discont inued [...] daily 180 September 12, 2022 12:00a m [facility] 2022 12:33 pm Nifedipine 60 mg tablet [...] not exceed 8 mg per 24 hrs Complies with drug therapy Losartan 50 mg Tablet Discont inued 50 [...] inued 30 UNIT SUBCUT Daily at bedtime Janobe r 2019 12:00a m Decem stefanie 2019 10:30 am Sodium Hypochlorit e (Dakin's Solution) 0.25 % solution Discont inued 1 APPLIC TOPICA L Once 473 Octobe r 2019 12:00a m Decem stefanie 2019 10:35 am Clindamycin Phosphate 1 % gel Discont inued 1 APPLIC TOPICA L Once 60 Janobe r 2019 12:00a m Octob er 2019 10:11 am Clindamycin Hcl 300 mg capsule Discont inued 300 MG PO Four times daily Octobe r 2019 12:00a m Novem stefanie 2019 2:47p m Amoxicillin -Pot Clavulanate (Augmentin) 875-125 mg tablet Discont inued 1 TAB PO Twice daily 20 10 Novemb er 2019 1:00am Decem stefanie 2019 10:52 am Cephalexin (Keflex) 500 mg capsule Discont inued 500 MG PO Q8H 42 14 Decemb er 2019 1:00am Dece stefanie 2019 10:34 [...] daily 20 10 Decemb er 2019 1:00am Aprua ry 2020 10:32 am Cephalexin (Keflex) 500 mg capsule Discont inued 500 MG PO Three times daily 30 10 r y 2020 1:00am Febru [email or web address] 10:59 am Clindamycin Hcl 300 mg capsule Discont inued 300 MG PO Three times daily 30 r 2020 1:00am Febru beti 2020 10:59 am Levofloxaci n 500 mg tablet Discont inued 500 MG PO Daily 10 2020 1:00am u [email or web address] 11:55 am Atorvastati n 10 mg tablet Active 10 MG PO Bedtime 2020 1:00am Complies with drug therapy Clopidogrel 75 mg tablet Active 75 MG PO Daily 2020 1:00am Complies with drug therapy Amitriptyli ne 10 mg tablet Discont inued [...] Ferrous Sulfate 324 mg (65 mg iron) Tablet,Maria Fernanda yed Release (Dr/Ec) Discont inued 324 MG PO Every 48 [...] m Nacl-Zn Ac-Vit B6-Citric Acid (Wound Cleanser) [place],Non-A erosol Discont inued 1 SPRAY IRRIGA TION Daily 2021 1:00am 2021 1:21p m Insulin Detemir U-100 (Levemir Flextouch U100 Insulin) 100 unit/mL (3 mL) insulin pen Discont inued 42 UNIT SUBCUT Every morning 2021 1:00am September 11, 2024 2:49p m Melatonin 5 mg Tablet Active 5 MG PO Bedtime as needed for Insomnia 2021 1:00am Complies with drug therapy Potassium Chloride 20 mEq Tablet Extended Release Discont inued 20 MEQ PO Daily 2021 1:00am July 10, 2023 5:46p m Ferrous Sulfate 324 mg (65 mg iron) tablet,maria fernanda yed release (DR/EC) Discont inued 325 MG PO every Friday, Friday, and Friday 1:34pm October 21, 2022 12:42 pm Folic Acid 1 mg tablet Active 1 MG PO Daily November 14, 2021 12:00a m Complies with drug therapy Loteprednol Etabonate 0.5 % Drops,Suspe nsion Discont [...] 00 0 November 21, 2021 12:00a m Janua ry 2023 9:36a m Polyethylen e Glycol 3350 (Miralax) 17 gram Powder In Packet Active 17 GM PO Daily 0 November 21, 2021 12:00a m Complies with drug therapy Nifedipine 30 mg Tablet Extended Release 24 [...] tablet Discont inued 50 MG PO Daily 30 November 21, 2021 7:13pm October 21, 2022 12:42 pm Gabapentin 600 mg Tablet Discont inued 600 MG PO Every evening 0 November 21, 2021 12:00a m Janua ry 2023 9:36a m Vancomycin In Dextrose 5 [...] L Daily October 22, 2022 12:00a m Complies with drug therapy Levofloxaci n 750 mg Tablet Discont inued 750 MG PO Q24H October 24, 2022 12:00a m Oct er 2022 1:18p m Ferrous Sulfate (Ferosul) 325 mg (65 mg iron) tablet Active 325 MG PO Daily [facility] 2022 1:00am Complies with drug therapy Losartan 50 mg tablet Discont inued 50 MG PO Every morning [facility] er 2022 1:00am September 11, 2024 2:49p m Clonidine Hcl 0.1 mg tablet Discont inued 0.1 MG PO Twice daily [facility] er 2022 1:00am September 11, 2024 2:44p m Ergocalcife rol (Vitamin D2) 50,000 unit Tablet Active 18915 UNIT PO every week [facility] 2022 1:00am Complies with drug therapy Ascorbic Acid (Vitamin C) (Vitamin C) 500 mg Tablet Active 500 MG PO Daily [facility] 2022 1:00am Complies with drug therapy Sodium Bicarbonate 650 mg tablet Discont inued 650 MG PO Three times daily [facility] 2022 12:33p m September 11, 2024 2:50p [...] constipatio n September 10, 2024 12:00a m Complies with drug therapy Metoprolol Succinate 25 mg tablet extended release 24 hr Discont inued 12.5 MG PO Daily September 10, 2024 12:00a m September 14, 2024 1:10p m Calcium Acetate(Gerson sphat Bind) 667 mg capsule Active 667 MG PO THREE TIMES DAILY WITH MEALS September 11, 2024 12:00a m Complies with drug therapy Gabapentin 300 mg capsule Active 300 MG PO Bedtime September 11, 2024 12:00a m Complies with drug therapy Insulin Degludec (Tresiba Flextouch U-200) 200 unit/mL (3 mL) insulin pen Active 45 UNIT SUBCUT Daily September 11, 2024 12:00a m Complies with drug therapy Levofloxaci n 500 mg Tablet Discont inued 500 MG PO Every 48 hours 4 September 14, 2024 12:00a m September 23, 2024 7:28a m Midodrine 5 mg tablet Active 5 MG PO Three times daily September 14, 2024 12:00a m do not give last dose of day after 6PM or within 4 hrs of bedtime Complies with drug therapy IV Medications Medication Contents Directions Start Date Ertapenem [INVanz] 0.5 gm Ertapenem [INVanz], Sodium Chloride 0.9% 100 ml [0.9% Sodium Chloride 100 ml] 200 mls/hr IV Q24H November 21, 2021 12:00am Immunizations Immunization Event Date Not Given Reason Dose Number [employer] Lot Number Vaccine Information Statement (VIS) Detail Administration Location COVID-19 mRNA-1273 (Moderna) August 03, 2020 COVID-19 mRNA-1273 (Moderna) September 05, 2020 COVID-19 mRNA-1273 (Moderna) February 20, 2021 Tetanus, Diphtheria, Pertussis (Tdap) September 15, 2024 [id number] [facility] Medical Equipment Device Date Implanted Device Details Double-lumen haemodialysis catheter, implantable August 05, 2023 SHELLEY: [id number] Issuing Agency: [facility] Device Id: [id number] Expiration Date: 2027-09-03 Lot Number: [id number] Synthetic vascular graft April 16, 2023 SHELLEY: [id number] Issuing Agency: [facility] Device Id: [id number] Expiration Date: 2026-06-21 Serial Number: [id number] Polymeric ureteral stent May 25, 2020 SHELLEY : [id number] Issuing Agency: [facility] Device Id: [id number] Expiration Date: 2022-12-20 Lot Number: [id number] Polymeric ureteral stent May 25, 2020 SHELLEY : [id number] Issuing Agency: [facility] Device Id: [id number] Expiration Date: 2023-02-07 Lot Number: [id number] Double-lumen haemodialysis catheter, implantable October 15, 2024 SHELLEY: [id number] Issuing Agency: [facility] Device Id: [id number] Expiration Date: 2026-06-29 Lot Number: [id number] Relevant Diagnostic Tests and/or Laboratory Data Laboratory Results Test Collection Date/Time Result Date/Time Result Interpretation Reference Range Result Comment Performing Site Potassium Level November 12, 2024 11:47am November 12, 2024 1:14pm 2.7 mmol/L Below lower panic limits 3.5-5.1 Critical Result Called to and read back by: KEYSHAWN CARDONA at: 11/12/2024 13:16:31 by:[id number] [facility] [id number] [address] [id number] Potassium Level December 06, 2024 11:50am December 06, 2024 2:01pm 6.1 mmol/L Above upper panic limits 3.5-5.1 Critical Result Called to and read back by: LIZETT LOVE at: 12/06/2024 14:04:10 by:[id number] [facility] [id number] [address] [facility] [address] Vital Signs Vital Reading Result Reference Range Collection Date/Time Height 74 [in_i] October 15, 2024 6:30am Weight 97.52 kg October 15, 2024 6:30am Body Temperature 96.5 [degF] 97.6-99.0 October 15, 2024 8:16am Heart Rate 84 /min 60-100 October 15, 2024 10:01am Respiratory rate 16 /min 12-24 October 15, 2024 10:01am Oxygen saturation by Pulse oximetry 100 % 95-100 October 15, 2024 10:0 1am BP Systolic 123 mm[Hg] 100-140 October 15, 2024 10:01am BP Diastolic 76 mm[Hg] 60-100 October 15, 2024 10:01am Height 74 [in_i] January 13 10:35am Weight 97.52 kg January 13 10:35am Body Temperature 97.8 [degF] 97.6-99.0 January 10:35am Heart Rate 86 /min 60-100 January 13 2:40pm Respiratory rate 16 /min -January 2:40pm Oxygen saturation by Pulse oximetry 95 % 95-100 January 13, 2025 2: 40pm BP Systolic 134 mm[Hg] 100-140 January 13 2:40pm BP Diastolic 81 mm[Hg] 60-100 January 13 2:40pm Advance Directives Advance Directive Response Recorded Date/ Time Advance Directives No December 9:45am Insurance Providers Guarantor Lonny Love Address [address] [place] [address] [address] [facility] [address] Contact Info. Home Phone: Payer Policy Id Subscriber's Name Subscriber Id Effectiv e Date Expiration Date Medicaid [id number] Lonny Ellen Love [id number] Medicare [id number] Lonny Love [id number] Encounters Encounter Location(s) Arrival/Admit Date Discharge/Depart Date Provider(s) Non-patient / Non-visit -[facility] October 15, 2024 5:27am Fawad Rocha MD Non-patient / Non-visit [place] October 28, 2024 5:00am Yisel Andrade MD Departed Clinical -Dialysis November 12, 2024 11:47am November 12, 2024 11:48am Yisel Andrade MD Non-patient / Non-visit [place] November 28, 2024 6:00am Olga Lidia Martin MD Departed Clinical -Dialysis December 06, 2024 11:50am December 06, 2024 11:51am Olga Lidia Martin MD Departed Physician/Prov ider Office Visit -[facility] December 07, 2024 11:15am December 07, 2024 12:24pm Fawad Rocha MD Departed Physician/Prov ider Office Visit -[facility] January 04, 2025 9:16am January 04, 2025 9:35am Jailene Argueta APRN Non-patient / Non-visit -[facility] January 13, 2025 10:25am Fawad Rocha MD Recent Diagnosis Onset Date Admit Date End-stage renal disease on hemodialysis Unknown January 04, 2025 9:16am Assessments Diagnosis Onset Date Resolution Status Admit Date End-stage renal disease on hemodialysis deleted January 04, 2025 9:16am Plan of Treatment Author Jailene Argueta [facility] Authored January 04, 2025 9:47am We reviewed his vein mapping of bilateral upper extremities which shows limited options for creation of autologous access. He could have a right antecubital fistula with outflow to the basilic system or in the left upper extremity a prosthetic graft could be required. I did discuss both procedures with the patient, risk, and benefits. I will review these findings with Dr. Rocha when he is back in the office this morning to further plan for access creation and get scheduled in the near future. Until then he can continue use of the right IJ tunneled catheter which functions well for him currently. Future Tests Future scheduled test information is unavailable Pending Tests Pending diagnostic test information is unavailable Future Visits Future appointment information is unavailable Referrals to Other Providers Reason for Referral Referral Start Date Provider Provider Contact Information Provider Address Call for appointment to schedule next procedure Fawad Rocha MD Work Phone: [phone] [address] Call for appointment. I would like to see you in 2 to 3 weeks if no problems before hand Fawad Rocha MD Work Phone: [phone] [address] Future Procedures Procedure Name Ordered Date Scheduled Date Discharge Order October 15, 2024 8:09am October 8:09am Discharge Order January 13, 2025 1:57pm January 13, 2025 1:57pm Future Medications Future medication information is unavailable Patient Instructions Instruction Admit Date How to care for a hemodialys is catheter Know your Meds October 15, 2024 5:27am Know your Meds January 13, 2025 10 :25am Hospital Discharge Instructions Additional Instructions DISCHARGE INSTRUCTIONS- TAKING CARE OF YOUR FISTULA / GRAFT You have a: fistula /graft A fistula or graft (both called an [...] F -Drainage from fistula or graft site SPECIAL CARE FOR THOSE WITH A FISTULA ONLY -Over time usually in 1-4 months the vein in your arm near the surgery site will enlarge or mature. The bigger the vein becomes, the easier it will be to use for dialysis. -Making a fist or squeezing a rubber ball or hand melter operator increases the blood flow to your fistula helping it to work better and mature faster. Try squeezing the ball during the commercials while watching TV. As a general guideline exercise can be started in 3 weeks after your fistula is placed. WHEN TO CALL YOUR DOCTOR -If you CANNOT feel the buzzing or hear it with a stethoscope, do not wait! CALL YOUR DOCTOR IMMEDIATELY SO IT CAN BE CHECKED. -If you have signs of infection, consult your physician. -Get to know your fistula or graft. Report any changes in how it sounds, feels, or looks! IMPORTANT NUMBERS -[facility] [phone] -[facility] Emergency Room [phone] -Nephrology [phone] -Vascular [phone] FOLLOW UP -Call your physician to schedule a post-operative appointment.
--- OUTSIDE RECORDS SUMMARY | 2025-01-18 13:58 | XMS_ITS | Patient Health Record ---
Author Organization [facility] [place] Address [address] [place] [address] Care Team Providers Care Cushion Former Name Role Phone None, Unknown or Primary Care Provider Unavailab Jhonny Paulson Unavailable [phone] Reason For Referral No Information Problems Problem Type SNOMED Code ICD Code Onset Dates Problem Status W/U Status Risk Notes Problem Foot ulcer due to type 2 diabetes mellitus (6364843933585) Type 2 diabetes mellitus with foot ulcer (E11.621) Active confirmed Problem Pressure injury of right heel stage III (disorder) (84003244008657) Pressure ulcer of right heel, stage 3 (L89.613) Active confirmed Problem Chronic ulcer of foot (966717087) Non-pressure chronic ulcer of right heel and midfoot limited to breakdown of skin (L97.411) Active confirmed Problem Non-pressure chronic ulcer of other part of right foot with fat layer exposed (L97.512) Active confirmed Problem Chronic non-pressure ulcer of calf extending to fat level (5873055036532794 1) Non-pressure chronic ulcer of other part of right lower leg with fat layer exposed (L97.812) Active confirmed Problem Chronic venous insufficiency (34600347) Chronic venous insufficiency (I87.2) Active confirmed Problem Polyneuropathy due to type 2 diabetes mellitus (855447886) Diabetes mellitus with polyneuropathy (E11.42) Active confirmed Problem Peripheral vascular disease (324366585) Other peripheral vascular diseases (I73.89) Active confirmed Problem Foot ulcer due to type 2 diabetes mellitus (5017942893505) Diabetes mellitus with foot ulcer due to multiple causes (E11.621) Active confirmed Problem Chronic ulcer of foot (000622996) Non-pressure chronic ulcer of right heel and midfoot with fat layer exposed (L97.412) Active confirmed Problem Pressure injury of right heel stage III (disorder) (73488351831873) Decubitus ulcer of right heel, stage 3 (L89.613) Active confirmed Problem Non-pressure chronic ulcer of right heel and midfoot with muscle involvement without evidence of necrosis (L97.415) Active confirmed Problem Non-pressure chronic ulcer of left heel and midfoot with muscle involvement without evidence of necrosis (L97.425) Active confirmed Problem Decubitus ulcer of right heel, stage 4 (L89.614) Active confirmed Problem Right foot drop (finding) (529654704204283) Acquired right foot drop (M21.371) Active confirmed Problem Chronic ulcer of plantar surface of right midfoot limited to breakdown of skin (L97.411) Active confirmed Problem Pressure injury of right heel stage III (disorder) (14373709622098) Pressure injury of right heel, stage 3 (L89.613) Active confirmed Problem Chronic ulcer of right heel (disorder) (1012043333501207 2) Chronic ulcer of right heel limited to breakdown of skin (L97.411) Active confirmed Problem Chronic ulcer of right foot (disorder) (4683242156532447 0) Chronic ulcer of right foot with fat layer exposed (L97.512) Active confirmed Problem Ischemic ulcer o f left heel with fat layer exposed (L97.422) Active confirmed Encounters Encounter Location Date Provider Diagnosis [facility] [address] [place] [address] 01/22/2024 Jhonny Myles Plan Of Treatment Pending Test Test Name Order Date PROF CHEM 8 (BAS METB) 01/08/2024 PTT 01/08/2024 ECG 12 lead 01/08/2024 Prothrombin Time INR 01/08/2024 XR chest 2V 01/08/2024 Insurance Providers Payer Name Payer Address Payer Phone Subscriber Number Group Number Insured Name Patient Relationship to Insured Coverage Start Date Coverage End Date [employer] MED[employer]ARE ADV PLAN [address] [address] [place] [address] [phone] [id number] Lonny Delgado Self - patient is the insured [place] 2ND INS [address] [place], [place] [id number] Lonny Delgado Self - patient is the insured 5 [place] [address] [place] [address] [id number] Lonny Delgado Self - patient is the insured
--- OUTSIDE RECORDS SUMMARY | 2025-01-18 13:58 | XMS_ITS | Clinical Summary ---
Author Organization [facility] Address [address] [place] [address] Care Team Providers Care Engineering Research Manager Name Role Phone Unavailable Primary Care Provider Unavailabl e Social History Tobacco Use Types Packs/Day Years Used Date Smoking Tobacco: Never Assessed Sex and Gender Information Value Date Recorded Sex Assigned at Not on file Legal Sex Male 6:54 PM EDT Gender Identity Not on file Sexual Orientation Not on file Plan of Treatment Not on file Insurance [facility] MEDICARE ADVANTAGE MEDICAID [place]
--- OUTSIDE RECORDS SUMMARY | 2025-01-18 13:58 | XMS_ITS | Patient Health Record ---
Author Organization [facility] Address [facility] [place] [address] Care Team Providers Care Power Plant Assistant Name Role Phone Vincenzo Gomez Unavailable [phone] Reason For Referral No Information Plan Of Treatment No Information Insurance Providers Payer Name Payer Address Payer Phone Subscriber Number Group Number Insured Name Patient Relationship to Insured Coverage Start Date Coverage End Date Medicare Part B [id number] Part [facility] [place] [address] [id number] Lonny Delgado Self - patient is the insured Medicaid [place] [employer] [address] [place] [address] [id number] Lonny Delgado Self - patient is the insured
--- OUTSIDE RECORDS SUMMARY | 2025-01-18 13:59 | XMS_ITS | Patient Health Record ---
[facility] Organization [facility] Address [address] [place] [address] Care Team Providers Care [place] Reporter Name Role Phone Mervat Santiago Primary Care Provider Becky Nogueira [phone] Allergies Allergen (clinical drug ingredient) Drug/Non Drug Allergy documented on EMR Reaction Allergy Type Onset Date Status lisinopril Lisinopril Unknown Drug Allergy Activ e codeine Codeine (uncoded) Unknown Allergy Ac tive Results Component Value Reference Range Flag Notes ISTAT ABG Reviewed date:10/20/2024 08:43:46 AM Interpretation: Performing Lab:, [facility], [address] [place] Notes/Report: ISTAT Sodium Level 138 138-146 mmol/L N ISTAT Potassium Level 3.4 3.5-4.9 mmol/L L ISTAT Total Carbon Dioxide 27 23-29 mmol/L N ISTAT Ionized Calcium 1.04 1.12-1.32 mol/L L ISTAT Hematocrit 30.0 38.0-51.0 % L ISTAT Hemoglobin 10.2 12.0-17.0 g/dL L ISTAT Ph 7.358 7.31-7.45 N ISTAT PCO2 46.3 35-51 mm[Hg] N ISTAT PO2 39 80-105 mm[Hg] L ISTAT Bicarbonate 26.1 22.0-28.0 mmol/L N ISTAT Base Excess 1 -2 TO 3 mmol/L N ISTAT O2 Saturation 70 95-98 % L Refer ence ranges reflect baseline specimens only ISTAT Glucose 63 70-105 mg/dL L Glucose Poct Glucometers Reviewed date:10/13/2024 08:06:49 AM Interpretation: Performing Lab:, [facility], [address] [place] Notes/Report: Glucose Poc Glucometers 90 Random Glucose Reference Range is dependent on time and content of last meal. Glucose of more than 200 mg/dL in a nonstressed, ambulatory subject supports the diagnosis of Diabetes Mellitus. Commemt1 Glu2: Cleaned Meter Basic Metabolic Panel Reviewed date:10/13/2024 08:07:21 AM Interpretation: Performing Lab:, [facility], [address] [place] Notes/Report: Glucose 54 70-100 mg/dL L Random Glucose Reference Range is dependent on time and content of last meal. Glucose of more than 200 mg/dL in a nonstressed, ambulatory subject supports the diagnosis of Diabetes Mellitus. ADA recommended reference range Blood Urea Nitrogen 42 7-25 mg/dL H Sodium 137 136-145 mmol/L N Potassium 3.1 3.5-5.1 mmol/L L Chloride 99 98-107 mmol/L N Carbon Dioxide 21.2 21.0-31.0 mmol/L N Calcium 7.6 8.6-10.3 mg/dL L Creatinine 12.28 0.70-1.30 mg/dL H Estimated GFR 3.895 Anion Gap 19.9 6.0-15.0 H Creatinine Clr Calc Pharmacy 6.67 Complete Blood Count Auto Di ff Reviewed date:10/13/2024 08:07:38 AM Interpretation: Performing Lab:, [facility], [address] [place] Notes/Report: White Blood Count 13.3 4.1-10.5 [CFU]/mL H Uncorrected WBC 13.3 4.1-10.5 10*3/uL H Red Blood Count 2.64 3.90-5.60 10*6/uL L Hemoglobin 9.1 13.0-17.0 g/dL L Hematocrit 28.2 38.8-50.0 % L Mean Corpuscular Volume 106.5 83.5-101 fL H Mean Corpuscular Hemoglobin 34.3 27.5-35.2 pg N Mean Corpuscular HGB Conc 32.2 32.5-35.6 g/dL L Red Cell Distribution Width 20.1 12.0-14.8 % H Platelet Count 266 150-450 10*3/uL N Mean Platelet Volume 8.9 6.6-10.1 fL N Neutrophils % (Auto) 54.2 . % Lymphocytes % (Auto) 31.3 . % Monocytes % (Auto) 10.2 . % Eosinophils % (Auto) 3.7 . % Basophils % (Auto) 0.6 . % NRBC% 0.6 0-0.5 /100{WBC} H Neutrophils # (Auto) 7.2 1.8-7.7 10*3/uL N Lymphocytes # (Auto) 4.2 1.00-4.8 10*3/uL N Monocytes # (Auto) 1.4 0.0-0.8 10*3/uL H Eosinophils # (Auto) 0.5 0.0-0.45 10*3/uL H Basophils # (Auto) 0.1 0.0-0.2 10*3/uL N Glucose Poct Glucometers Reviewed date:10/13/2024 08:06:57 AM Interpretation: Performing Lab:, [facility], [address] [place] Notes/Report: Glucose Poc Glucometers 64 Random Glucose Reference Range is dependent on time and content of last meal. Glucose of more than 200 mg/dL in a nonstressed, ambulatory subject supports the diagnosis of Diabetes Mellitus. Glucose Poct Glucometers Reviewed date:10/15/2024 08:44:02 AM Interpretation: Performing Lab:, [facility], [address] [place] Notes/Report: Glucose Poc Glucometers 80 Random Glucose Reference Range is dependent on time and content of last meal. Glucose of more than 200 mg/dL in a nonstressed, ambulatory subject supports the diagnosis of Diabetes Mellitus. Glucose Poct Glucometers Reviewed date:10/15/2024 08:43:40 AM Interpretation: Performing Lab:, [facility], [address] [place] Notes/Report: Glucose Poc Glucometers 57 LL Random Glucose Reference Range is dependent on time and content of last meal. Glucose of more than 200 mg/dL in a nonstressed, ambulatory subject supports the diagnosis of Diabetes Mellitus. Commemt1 Glu2: Will Rep eat Test Glucose Poct Glucometers Reviewed date:10/15/2024 08:41:21 AM Interpretation: Performing Lab:, [facility], [address] [place] Notes/Report: Glucose Poc Glucometers 66 Random Glucose Reference Range is dependent on time and content of last meal. Glucose of more than 200 mg/dL in a nonstressed, ambulatory subject supports the diagnosis of Diabetes Mellitus. Comprehensive Metabolic Pane l Reviewed date:09/23/2024 09:01:36 AM Interpretation: Performing Lab:, [facility], [address] [place] Notes/Report: Glucose 49 70-100 mg/dL LL Critical Result Called to and read back by: YAW PRUITT at: 09/22/2024 12:59:03 by:MLG Random Glucose Reference Range is dependent on time and content of last meal. Glucose of more than 200 mg/dL in a nonstressed, ambulatory subject supports the diagnosis of Diabetes Mellitus. ADA recommended reference range Blood Urea Nitrogen 77 7-25 mg/dL H Creatinine 11.28 0.70-1.30 mg/dL H Sodium 133 136-145 mmol/L L Potassium 4.0 3.5-5.1 mmol/L N Chloride 93 98-107 mmol/L L Carbon Dioxide 19.1 21.0-31.0 mmol/L L Calcium 8.7 8.6-10.3 mg/dL N Total Protein 8.9 6.4-8.9 g/dL N Albumin Level 3.7 3.5-5.7 g/dL N Globulin 5.2 Albumin/Globulin Ratio 0.7 Bilirubin,Total 0.7 0.3-1.0 mg/dL N Aspartate Amino Transferase 30 13-39 U/L N Alanine Aminotransferase 9 7-52 U/L N Alkaline Phosphatase 123 34-104 U/L H Estimated GFR 4.313 Anion Gap 24.9 6.0-15.0 H Creatinine Clr Calc Pharmacy 6.68 C-Reactive Protein Reviewed date:09/23/2024 09:00:48 AM Interpretation: Performing Lab: Notes/Report: C-Reactive Protein 15.1 0.0-0.5 mg/dL H Lactic Acid Reviewed date:09/23/2024 09:01:03 AM Interpretation: Performing Lab:, [facility], [address] Notes/Report: Lactic Acid 1.8 0.5-1.9 mmol/L N Lactic Acid reference range has been updated to 0.5 ? 1.9 mmol/L and the critical range of 2.0 or greater. Complete Blood Count Auto Di ff Reviewed date:09/23/2024 09:01:51 AM Interpretation: Performing Lab:, [facility], [address] Notes/Report: White Blood Count 16.6 4.1-10.5 [CFU]/mL H Uncorrected WBC 16.6 4.1-10.5 10*3/uL H Red Blood Count 2.76 3.90-5.60 10*6/uL L Hemoglobin 9.5 13.0-17.0 g/dL L Hematocrit 28.8 38.8-50.0 % L Mean Corpuscular Volume 104.2 83.5-101 fL H Mean Corpuscular Hemoglobin 34.3 27.5-35.2 pg N Mean Corpuscular HGB Conc 32.9 32.5-35.6 g/dL N Red Cell Distribution Width 18.9 12.0-14.8 % H Platelet Count 359 150-450 10*3/uL N Mean Platelet Volume 9.3 6.6-10.1 fL N Erythrocyte Sedimentation Ra te Reviewed date:09/23/2024 09:00:39 AM Interpretation: Performing Lab:, [facility], [address] [place] Notes/Report: Comment please ADD ON to ER labs Erythrocyte Sedimentation Rate >130 0-19 H Glucose Poct Glucometers Reviewed date:09/23/2024 09:01:10 AM Interpretation: Performing Lab:, [facility], [address] [place] Notes/Report: Glucose Poc Glucometers 70 Random Glucose Reference Range is dependent on time and content of last meal. Glucose of more than 200 mg/dL in a nonstressed, ambulatory subject supports the diagnosis of Diabetes Mellitus. Commemt1 Glu2: WILL NOT KAYLI /RN Commemt2 Cleaned Meter Complete Blood Count and Sca n Reviewed date:09/23/2024 09:00:55 AM Interpretation: Performing Lab:, [facility], [address] Notes/Report: For adults in ED, MDW > 20.0 may be associated with a higher risk of sepsis during the first 12 hrs of hospital admission Platelet Estimate Normal Normal Platelet Morphology Normal Normal White Blood Count 16.6 4.1-10.5 [CFU]/mL H Uncorrected WBC 16.6 4.1-10.5 10*3/uL H Red Blood Count 2.76 3.90-5.60 10*6/uL L Hemoglobin 9.5 13.0-17.0 g/dL L Hematocrit 28.8 38.8-50.0 % L Mean Corpuscular Volume 104.2 83.5-101 fL H Mean Corpuscular Hemoglobin 34.3 27.5-35.2 pg N Mean Corpuscular HGB Conc 32.9 32.5-35.6 g/dL N Red Cell Distribution Width 18.9 12.0-14.8 % H Platelet Count 359 150-450 10*3/uL N Mean Platelet Volume 9.3 6.6-10.1 fL N Monocyte Distribution Width 21.54 0.00-20.00 % H Neutrophils % (Auto) 77.5 . % Lymphocytes % (Auto) 9.7 . % Monocytes % (Auto) 10.2 . % Eosinophils % (Auto) 2.5 . % Basophils % (Auto) 0.1 . % NRBC% 0.3 0-0.5 /100{WBC} N Neutrophils # (Auto) 12.8 1.8-7.7 10*3/uL H Lymphocytes # (Auto) 1.6 1.00-4.8 10*3/uL N Monocytes # (Auto) 1.7 0.0-0.8 10*3/uL H Eosinophils # (Auto) 0.4 0.0-0.45 10*3/uL N Basophils # (Auto) 0.0 0.0-0.2 10*3/uL N Polychromasia Moderate Poikilocytosis Moderate Anisocytosis Moderate Macrocytosis Slight Schistocytes Slight Target Cells Slight Rouleaux Moderate Glucose Poct Glucometers Reviewed date:10/13/2024 08:08:41 AM Interpretation: Performing Lab:, [facility], [address] [place] Notes/Report: Glucose Poc Glucometers 75 Random Glucose Reference Range is dependent on time and content of last meal. Glucose of more than 200 mg/dL in a nonstressed, ambulatory subject supports the diagnosis of Diabetes Mellitus. Commemt1 Glu2: Cleaned Meter Glucose Poct Glucometers Reviewed date:10/15/2024 08:44:38 AM Interpretation: Performing Lab:, [facility], [address] [place] Notes/Report: Glucose Poc Glucometers 229 Random Glucose Reference Range is dependent on time and content of last meal. Glucose of more than 200 mg/dL in a nonstressed, ambulatory subject supports the diagnosis of Diabetes Mellitus. Glucose Poct Glucometers Reviewed date:10/15/2024 08:43:52 AM Interpretation: Performing Lab:, [facility], [address] [place] Notes/Report: Glucose Poc Glucometers 244 Random Glucose Reference Range is dependent on time and content of last meal. Glucose of more than 200 mg/dL in a nonstressed, ambulatory subject supports the diagnosis of Diabetes Mellitus. Glucose Poct Glucometers Reviewed date:10/15/2024 08:43:25 AM Interpretation: Performing Lab:, [facility], [address] [place] Notes/Report: Glucose Poc Glucometers 159 Random Glucose Reference Range is dependent on time and content of last meal. Glucose of more than 200 mg/dL in a nonstressed, ambulatory subject supports the diagnosis of Diabetes Mellitus. Potassium Reviewed date:10/15/2024 08:32:37 AM Interpretation: Performing Lab:, [facility], [address] [place] Notes/Report: Potassium 3.1 3.5-5.1 mmol/L L Glucose Poct Glucometers Reviewed date:10/15/2024 08:33:07 AM Interpretation: Performing Lab:, [facility], [address] [place] Notes/Report: Glucose Poc Glucometers 157 Random Glucose Reference Range is dependent on time and content of last meal. Glucose of more than 200 mg/dL in a nonstressed, ambulatory subject supports the diagnosis of Diabetes Mellitus. ISTAT ABG Reviewed date:10/15/2024 08:32:59 AM Interpretation: Performing Lab:, [facility], [address] [facility] Notes/Report: ISTAT Sodium Level 137 138-146 mmol/L L ISTAT Potassium Level 2.9 3.5-4.9 mmol/L LL ISTAT Total Carbon Dioxide 24 23-29 mmol/L N ISTAT Ionized Calcium 1.14 1.12-1.32 mol/L N ISTAT Hematocrit 30.0 38.0-51.0 % L ISTAT Hemoglobin 10.2 12.0-17.0 g/dL L ISTAT Ph 7.340 7.31-7.45 N ISTAT PCO2 42.1 35-51 mm[Hg] N ISTAT PO2 43 80-105 mm[Hg] L ISTAT Bicarbonate 22.7 22.0-28.0 mmol/L N ISTAT Base Excess -3 -2 TO 3 mmol/L L ISTAT O2 Saturation 75 95-98 % L Refer ence ranges reflect baseline specimens only ISTAT Glucose 143 70-105 mg/dL H Hemoglobin A1c Reviewed date:10/19/2024 11:35:24 AM Interpretation:5.8 Performing Lab: Notes/Report: 5.8 Hemoglobin A1c 5.8 5 - 7.9 % Troponin I High Sensitivity Reviewed date:09/12/2024 10:49:26 PM Interpretation: Performing Lab:, [facility], [address] [facility] Notes/Report: decimal is removed and results are in whole numbers. Troponin units are changed from pg/ml to ng/L. Also, the Chest Pain Accreditation requirement, element EC5.M1l2. The Troponin units of report have been changed to meet the at: 09/10/2024 20:07:56 by:[id number] Critical Result : Called to and read back by: UZMA PERLA Troponin I High Sensitivity 279 0-20 HH Troponin I High Sensitivity Reviewed date:09/12/2024 10:49:38 PM Interpretation: Performing Lab: Notes/Report: Critical Result : Called to and read back by: LACHELLE FISHMAN at: 09/10/2024 19:17:22 by:[id number] The Troponin units of report have been changed to meet the Chest Pain Accreditation requirement, element EC5.M1l2. Troponin units are changed from pg/ml to ng/L. Also, the decimal is removed and results are in whole numbers. Troponin I High Sensitivity 302 0-20 HH Complete Blood Count and Dif f Reviewed date:09/12/2024 10:50:45 PM Interpretation: Performing Lab:, [facility], [address], [place] Notes/Report: Segmented Neutrophils 71 50-70 % H Band Neutrophils 4 0-5 % N Lymphocytes 9 18-42 % L Monocytes 11 2-11 % N Eosinophils 2 1-3 % N Anisocytosis Slight Platelet Estimate Normal Normal Large Platelets Slight White Blood Count 23.4 4.1-10.5 10*3/uL H Uncorrected WBC 23.4 4.1-10.5 10*3/uL H Red Blood Count 2.87 3.90-5.60 10*6/uL L Hemoglobin 9.9 13.0-17.0 g/dL L Hematocrit 28.9 38.8-50.0 % L Mean Corpuscular Volume 100.7 83.5-101 fL N Mean Corpuscular Hemoglobin 34.5 27.5-35.2 pg N Mean Corpuscular HGB Conc 34.3 32.5-35.6 g/dL N Red Cell Distribution Width 17.4 12.0-14.8 % H Platelet Count 273 150-450 10*3/uL N Mean Platelet Volume 9.7 6.6-10.1 fL N Metamyelocytes 1 0-0 % H Myelocytes 2 0-0 % H Nucleated Red Blood Cell 4 0-0 /100{WBC} H Polychromasia Moderate Target Cells Slight Ovalocytes Slight Lipase Reviewed date:09/12/2024 10:49:57 PM Interpretation: Performing Lab: Notes/Report: Lipase 664.0 11.0-82.0 U/L H Lactic Acid Reviewed date:09/12/2024 10:50:30 PM Interpretation: Performing Lab:, [facility], [address], [place] Notes/Report: Lactic Acid 0.5-1.9 Specimen hemolyzed/severely icteric Lactic Acid reference range has been updated to 0.5 ? 1.9 mmol/L and the critical range of 2.0 or greater. Comprehensive Metabolic Pane l Reviewed date:09/12/2024 10:50:21 PM Interpretation: Performing Lab:, [facility], [address] [place] Notes/Report: Glucose 105 70-100 mg/dL H Random Glucose Reference Range is dependent on time and content of last meal. Glucose of more than 200 mg/dL in a nonstressed, ambulatory subject supports the diagnosis of Diabetes Mellitus. ADA recommended reference range Blood Urea Nitrogen 31 7-25 mg/dL H Creatinine 4.63 0.70-1.30 mg/dL U CARLOS/ER, PATIENT @GETS DIALYSIS AND PATIENT IS ALSO A HARD STICK. FELT THAT @REDRAW WOULD BE THE SAME. RELEASED RESULTS, INFORMED @CARLOS/ER OF LEVEL OF INTERFERENCEFROM HIL AND ASKEDHIM TO @NOTIFY DR. SIDDIQI, TO WHICH IS WELL AWARE. RLS Sodium 132 136-145 mmol/L L Potassium 3.4 3.5-5.1 mmol/L L Chloride 90 98-107 mmol/L L Carbon Dioxide 33.4 21.0-31.0 mmol/L H Calcium 9.2 8.6-10.3 mg/dL N Total Protein 9.3 6.4-8.9 g/dL H Albumin Level 3.8 3.5-5.7 g/dL N Globulin 5.5 Albumin/Globulin Ratio 0.7 Bilirubin,Total 3.2 0.3-1.0 mg/dL H Samples from patients who have taken Naproxen have shown spurious elevation in Total Bilirubin levels. A metabolite of Naproxen, O-desmethylnaproxen, has been shown to interfere with the Jendrassik-Grof method for measuring Total Bilirubin. Aspartate Amino Transferase 282 13-39 U/L H Alanine Aminotransferase 38 7-52 U/L N Alkaline Phosphatase 91 34-104 U/L N Estimated GFR 12.555 Anion Gap 12.0 6.0-15.0 meq/L N Creatinine Clr Calc Pharmacy 16.27 Creatine Kinase Reviewed date:09/12/2024 10:49:47 PM Interpretation: Performing Lab:, [facility], [address], [place] Notes/Report: Creatine Kinase 3135 30-223 U/L H the result.Lipemia is present at a level that could Hemolysis is present at a level that could interfere with interfere with the result. Medications Medication SIG (Take, Route, Frequency, Duration) Notes Start Date End Date Status Commode Bedside - Miscellaneous place in bedroom next to bed for easy access to bathroom; Duration: 365 days History of CVA with right sided residual, b/l ulcers, cannot get to the bathroom in time, a bedside commode will allow pt independence with ADLs 10/19/2024 Active Vitamin C 500 MG Tablet TAKE 1 TAB BY MOUTH ONCE EVERY DAY Active Ammonium Lactate 12 % Lotion ONE APPLICATION EXTERNALLY TWICE DAILY Active Clopidogrel Bisulfate 75 MG Tablet TAKE 1 TAB BY MOUTH ONCE EVERY DAY Active DULoxetine HCl 60 MG Capsule Delayed Release Particles take 1 capsule by mouth once daily; Duration: 90 Active UltiCare Short Pen [place] 31G X 8 MM Miscellaneous as directed; Duration: 30 days Active Docusate Sodium 100 MG Capsule 1 capsule Orally Once a day; Duration: 30 days As needed 01/25/2025 Active NovoLOG FlexPen 100 UNIT/ML Solution Pen-injector INJECT SUBQ BEFORE MEALS AND DAILY AT BEDTIME PER SLIDING SCALE: 151-200=0U, 201-250=2U, 251-300=4U, 301-350=6U, 350-400=8U, 401-450=10U, >400 ER Active Atorvastatin Calcium 10 MG Tablet take 1 tablet by mouth once daily; Duration: 90 Active Gabapentin 300 MG Capsule TAKE 1 CAP BY MOUTH DAILY AT BEDTIME Active FeroSul 325 (65 Fe) MG Tablet TAKE 1 TAB BY MOUTH ONCE EVERY DAY Active Tresiba FlexTouch 200 UNIT/ML Solution Pen-injector INJECT 45 UNITS SUBCUTANEOUSLY ONCE EVERY DAY Subcutaneous daily; Duration: 90 days Active Vitamin D (Ergocalciferol) 1.25 MG (17447 UT) Capsule TAKE 1 CAPSULE BY MOUTH ONCE EVERY WEEK Active Coban Self-Adherent Wrap - Miscellaneous as directed 09/25/2022 Active Folic Acid 1 MG Tablet TAKE 1 TAB BY MOUTH ONCE EVERY DAY Active Loperamide HCl 2 MG Tablet 2 tablets Orally in the am; Duration: 30 days 10/19/2024 02/21/2025 Active Melatonin 5 MG Capsule TAKE 1 CAP BY MOUTH DAILY AT BEDTIME Active hydrOXYzine HCl 10 MG Tablet 1 tablet Orally twice a day; Duration: 30 days 11/23/2024 Active Midodrine HCl 5 MG Tablet TAKE 1 TABLET BY MOUTH 3 TIMES A DAY DO NOT TAKE THIRD DOSE IF AFTER 6:00PM; Duration: 30 Active Immunizations Vaccine Route Administration Date Status Comme [facility] Influenza 3+ PRIVATE IM Intramuscular 12/09/2019 Administe [...] stop date) Current Smoker NA - NA Social History Social Determinants Social Info Question Answer Notes PRAPARE Date Completed/Updated: 09/28/2020 What is your current housing situation? I do not have housing (staying with others, in a hotel, in a nursing home, living outside on the street, on a beach, or in a park) Are you worried about losing your housing? Yes What is the highest level of school that you have finished? More than high school What is your current work situation? Oth erwise unemployed but not seeking work (ex. 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 Stress is when someone feels tense, nervous, anxious, or cant sleep at night because their mind is troubled A little bit In the past year have you sp ent more than 2 nights in a row in a care home, halfway, half-way center, or juvenile correctional facility? No What country are you from? [place] Do you feel physically and e motionally safe where you currently live? Yes In the past year, have you b een afraid of your partner or ex-partner? No PRAPARE Score: 7 General Social Info Question Answer Notes Transition of Care: ER/UC/hospital since last office v isit? No Specialist seen since last office visit? No Substance abuse/mental health issues of patient/family Patient - Caffeine Use Ability to understand healthcare/treatment Patient: Good Tobacco Screen: Are you a: current smoker How often do you smoke cigarettes? every day How many cigarettes a day do you smoke? 6-10 How soon after you wake up do you smoke your first cigarette? after 60 min Are you interested in quitting? Not ready to quit Sexual Hx: Had sex in the last 12 months (vaginal, o ral, or anal)? No Have you ever had an STD? No Social/Support Concerns: Patient: No Alcohol Screening: Did you have a drink containing alcohol in the past year? No Points 0 Interpretation Negative Behaviors affecting health Poor/Risky Behaviors: Secon d Hand Smoke- Communication Barrier: Language Barrier?: No Food Insecurity Screening Social Info Question Answer Notes Drugs Drug use Denies drug use Tobacco Use: Social Info Question Answer Notes Tobacco Control (Standard) Tobacco use: Current smoker How often do you smoke cigarettes? Every day How many cigarettes a day do you smoke? 11-20 Section Notes: smokes 1ppd x 40 yrs, [...] W/U Status Risk Notes Problem Mixed hyperlipidemia (127068069) Mixed hyperlipidemia (E78.2) Active confirmed Problem Tobacco user (335398123) Nicotine dependence, unspecified, uncomplicated (F17.200) Active confirmed Problem End stage renal disease (68933043) End stage renal disease (N18.6) Active confirmed Problem Vitamin D deficiency (50310928) Vitamin D deficiency (E55.9) Active confirmed Problem Hypertension (11580514) Hypertension (I10) Active confirmed Problem Gastroesophageal reflux disease (036227334) GERD (gastroesophageal reflux disease) (K21.9) Active confirmed Problem Chronic pain (06050203) Chronic pain (G89.29) Active confirmed Problem Type II diabetes mellitus well controlled (042140297) Diabetes type 2, controlled (E11.9) Active confirmed Problem Dependence on renal dialysis (829840637) Dependence on renal dialysis (Z99.2) Active confirmed Problem Pulmonary nodule (850934433) Pulmonary nodule (R91.1) Active confirmed Problem Peripheral vascular disease (499688331) PAD (peripheral artery disease) (I73.9) Active confirmed Problem Late effects of cerebrovascular disease (599254690) History of CVA with residual deficit (I69.30) Active confirmed Problem Lower urinary tract symptoms due to benign prostatic hypertrophy (87942924217797) Benign prostatic hyperplasia with lower urinary tract symptoms (N40.1) Active confirmed Problem Chronic renal failure syndrome (76877691) Chronic kidney disease, unspecified CKD stage (N18.9) Active confirmed Problem Stage 3 skin ulcer with fat layer exposed (L98.492) Active confirmed Vital Signs Heart Rate 81 /min 11/23/2024 Temperature 97.5 degrees Fahrenheit 11/23/2024 Respiratory Rate 18 /min 11/23/2024 Oximetry 99 % 11/23/2024 Blood pressure diastolic 82 mm Hg 11/23/2024 Height 74 in 11/23/2024 Blood pressure systolic 130 mm Hg 11/23/2024 Weight 220 lbs 11/23/2024 BMI 28.24 kg/m2 11/23/2024 Encounters Encounter Location Date Provider Diagnosis [facility] [address] [place] [address] 01/14/2025 [place] [address] [place] [address] 04/17/2024 Mervat Spasic Nicotine dependence, unspecified, uncomplicated F17.200 [facility] [address] [place] [address] 06/23/2024 Mervat Spasic Nicotine dependence, unspecified, uncomplicated F17.200 [facility] [address] [place] [address] 06/23/2024 Mervat Spasic Nicotine dependence, unspecified, uncomplicated F17.200 [place] [place] [address] 07/07/2024 [facility] [address] [place] [address] 07/15/2024 [place] [address] [place] [address] 08/13/2024 [place] [address] [place] [address] 09/27/2024 [facility] [address] [facility] [place] [address] 09/27/2024 [place] [address] [address] 10/20/2024 [facility] Diabetes type 2, controlled E11.9 [facility] [address] [place] [address] 11/26/2024 Mervat Susan [place] [place] [address] 12/22/[address] [address] 07/08/2024 [facility] Nicotine dependence, unspecified, uncomplicated F17.200 ; Diabetes type 2, controlled E11.9 ; End stage renal disease N18.6 ; Dependence on renal dialysis Z99.2 ; Mixed hyperlipidemia E78.2 and Hypertension I10 [address] [address] 11/23/2024 [facility] Chronic diarrhea K52 .9 ; Itchy skin L29.9 ; Diabetes type 2, controlled E11.9 and History of CVA with residual deficit I69.[address] [place] [address] 10/19/2024 [facility] Diabetes type 2, controlled E11.9 ; End stage renal disease N18.6 ; History of CVA with residual deficit I69.30 ; Dependence on renal dialysis Z99.2 and Chronic diarrhea K52.9 [facility] [address] [place] [address] 07/08/2024 Becky Nogueira Lack of access to transportation Z91.89 Assessments Encounter Date Diagnosis (ICD Code) Assessment Notes Treatment Notes Treatment Clinical Notes Section Notes 04/17/2024 Nicotine dependence, unspecified, uncomplicated (ICD-10 - F17.200) 06/23/2024 Nicotine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
--- OUTSIDE RECORDS SUMMARY | 2025-01-18 14:00 | XMS_ITS | Encounter Summary ---
Author Organization [facility] Address [address] [place] [address] Care Team Providers Care Manual Arts Therapist Name Role Phone Unavailable Primary Care Provider Unavaildilshad e Encounter Details Date Type Department Care Team (Late st Contact Info) Description 09/11/2024 External Result Encounter [facility] External Department Unsolicited Nathaniel Alonso DPM [address] [place] [address] Social History Tobacco Use Types Packs/Day Years [...] Laterality Modality Lower Extremities, Foot Bilateral Radiogra [facility] 09/11/2024 12:5 8 PM EDT Impressions [...] Saenz M.D. 09/11/2024 1:04 PM Dictation Location: [facility]29 Transcribed By: BRIANA 09/11/24 1304 Dictated By: Leobardo Saenz MD 09/11/24 1258 Signed By: <Electronically signed by Leobardo Saenz MD in OV> 09/11/24 1304 Narrative 09/11/2024 1:06 PM EDT [facility] [place] [address] XRay Report Signed Patient: Lonny Lott MR#: [id number] : 1950 Acct:[id number] Age/Sex: 74 / M ADM Date: 09/10/24 Loc: 3T Room: [address] [place] [address] Type: DIS IN Attending Dr: Julian Jones [...] healed fracture deformity involving the second metatarsal. Tgzv-kf-jpkcqiwf degenerative changes. Vascular calcifications. Left foot: Prior digit amputations. 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 Tdli-cd-pzulslgq diffuse soft tissue swelling without definite radiopaque foreign body or soft tissue gas. No definite periosteal reaction or osseous erosions. Vascular calcifications.. XR/XR foot BI 3V Procedure Note Radiology, Radiologist, - 10/14/2024 [facility] Main [address] [address] XRay Report Signed Patient: Lonny Lott EMR#: [id number] : 1950Acct:[id number] Age/Sex: 74 / MADM Date: 09/10/24 Loc: 3T Room: [id number]: DIS IN Attending Dr: Julian Jones MD [...] Remote healed fracture deformityinvolving the second metatarsal. Lgmx-go-ssgbvedd degenerative changes. Vascularcalcifications. Left foot: Prior digit amputations. Evidence of bony ankylosis of thesecond and third metatarsals. Klcc-nb-stauyogi diffuse soft tissue swelling without definite radiopaqueforeign [...] Saenz M.D. 09/11/2024 1:04 PM Dictation Location: [place] [address] Transcribed By: [facility] 09/11/24 1304 Dictated By: Leobardo Saenz MD 09/11/24 1258 Signed By: <Electronically signed by Leobardo Saenz MD in OV> 09/11/24 1304 Nathaniel Alonso DPM IMG XR PROCEDURES Edite d Result - Final documented in this encounter Visit Diagnoses Not on filedocumented in this encounter
--- OUTSIDE RECORDS SUMMARY | 2025-01-18 14:00 | XMS_ITS | Encounter Summary ---
Author Organization [facility] Address [facility] [place] [address] Care Team Providers Care Fingernail Sculpturer Name Role Phone Anton Mcgee DO Primary Care Provider +1- [phone] Source Comments In the event this information is protected by the Federal Confidentiality of Alcohol and Drug AbusePatient Records regulations: The Federal rules restrict any use of the information to criminally investigate or prosecute any alcohol or drug abuse patient.[facility] Encounter Details Date Type Department Care Team (Late st Contact Info) Description 10/17/2022 Lab Requisition [facility] [place] [address] Pedro Drake MD [address] [place] [address] Social History Tobacco Use Types [...] N ot on file 05/21/2022 Data from: https://www.neighborhoodatlas.[facility]/. Last address used for calculation 1929 [...] Assessment Author No 07/18/2022 7:50 PM EDT iG Sandoval RN * Are you blind or [...] INHIBITORY CONCENTRATION (VIZION) 10/19/2022 1:58 PM EDT [facility] Comment: Identification performed by client. Micro [...] us Pedro Drake MD LABORATORY Final Result [facility] [address] [address], documented in this encounter Visit Diagnoses Not on filedocumented in this encounter Care Teams Fingernail Sculpturer Relationship Specialty Start Date End Date Anton Mcgee DO [address] [place] [address] PCP - General Family Medicine 05/06/22 documented as of this encounter
--- OUTSIDE RECORDS SUMMARY | 2025-01-18 14:00 | XMS_ITS | Clinical Summary ---
Author Organization [facility] Address [address] [place] [address] Phone Care Team Providers Care Quitline Counselor Name Role Phone Anton Mcgee Primary Care Provider +1- [phone] Social History Tobacco Use Types Packs/Day Years [...] MMR Vaccines (1 of 1 - Stand ssii series) 1951 HIB Vaccines (1 of 1 - Risk 1-dose series) 06/30/1951 Meningococcal Vaccine (1 - R isk 2-dose series) 1952 Hepatitis C Screening 1968 Pneumococcal Vaccine (1 of 2 - PCV) 1969 DTaP/Tdap/Td Vaccines (1 - Tdap) 1972 Zoster Vaccines (1 of 2) 2000 RSV High Risk: (Elderly (60+ ) or Population) (1 - Risk 60-74 years 1-dose series) 2010 COVID-19 Vaccine (2023-2 5 season) 2024 Influenza Vaccine (#1) 2024 01/21/2022 HPV Vaccines [...] on patient's age to complete this topic Insurance MEDICAID Care Teams Quitline Counselor Relationship Specialty Start Date End Date Anton Mcgee DO [address] [place] [address] PCP - General 04/07/99
--- OUTSIDE RECORDS SUMMARY | 2025-01-18 14:00 | XMS_ITS | Encounter Summary ---
Author Organization [facility] Address [address] [place] [address] Phone Care Team Providers Care It Application Administrator Name Role Phone Anton Mcgee DO Primary Care Provider +1- [phone] Encounter Details Date Type Department Care Team (Late st Contact Info) Description 09/12/2024 Scanned Document [facility] [address] [place] [address] Scanning, Generic Provider Social History Tobacco Use [...] on filedocumented in this encounter Care Teams It Application Administrator Relationship Specialty Start Date End Date Anton Mcgee DO [address] [facility] [place] [address] PCP - General 04/07/99 documented as of this encounter
--- OUTSIDE RECORDS SUMMARY | 2025-01-18 14:00 | XMS_ITS | Encounter Summary ---
Author Organization [facility] Address [address] [place] [address] Phone Care Team Providers Care Crayon Sawyer Name Role Phone Anton Mcgee DO Primary Care Provider +1- [phone] Encounter Details Date Type Department Care Team (Late st Contact Info) Description 12/05/2021 Orders Only [facility] [address] [place] [address] Conversion, Onbase Social History Tobacco Use Types [...] on filedocumented in this encounter Care Teams Crayon Sawyer Relationship Specialty Start Date End Date Anton Mcgee DO [address] [facility] [place] [address] PCP - General 04/07/99 documented as of this encounter
--- OUTSIDE RECORDS SUMMARY | 2025-01-18 14:00 | XMS_ITS | Clinical Summary ---
Author Organization [facility] Address [facility] [place] [address] Care Team Providers Care Shirt Folding Machine Operator Name Role Phone Anton Mcgee DO Primary Care Provider +1- [phone] Allergies Active Allergy Reactions Criticality Noted Date [...] N ot on file 05/21/2022 Data from: https://www.neighborhoodatlas.medicine.[facility]/. Last address used for calculation [address] [facility] 05/21/2022 Sex and Gender Information Value [...] of 2) 2000 Advance Directive Discussion 04/07/2024 Covid-19 Vaccine (4 - 2024-2 6 season) 2024 02/20/2021, 09/05/2020, 08/03/2020 Influenza Vaccine (#1) 2024 01/21/2022, 2020 RSV [...] 6.3 - 8.0 g/dL 07/18/2022 6:26 AM [facility] Albumin 3.2(L) 3.9 - 4.9 g/dL 07/18/2022 6:26 AM [facility] Calcium, Total 8.6 8.5 - 10.2 mg/dL 07/18/2022 6:26 AM [facility] Bilirubin, Total 0.2 0.2 - 1.3 mg/dL 07/18/2022 6:26 AM [facility] Alkaline Phosphatase 120(H) 38 - 113 U/L 07/18/2022 6:26 AM [facility] AST 20 14 - 40 U/L 07/18/2022 6:26 AM [facility] ALT 10 10 - 54 U/L 07/18/2022 6:26 AM [facility] Glucose 117(H) 74 - 99 mg/dL 07/18/2022 6:26 AM [facility] Comment: The [place] Diabetes Association (ADA) provides guidance for cutoff [...] Standards of Medical Care in Diabetes 2016, [place] Diabetes Association. Diabetes Care. 2016.39(Suppl 1). BUN 73(H) 9 - 24 mg/dL 07/18/2022 6:26 AM [facility] Creatinine 4.66(H) 0.73 - 1.22 mg/dL 07/18/2022 6:26 AM [facility] Sodium 139 136 - 144 mmol/L 07/18/2022 6:26 AM [facility] Potassium 5.3(H) 3.7 - 5.1 mmol/L 07/18/2022 6:26 AM [facility] Chloride 107(H) 97 - 105 mmol/L 07/18/2022 6:26 AM [facility] CO2 21(L) 22 - 30 mmol/L 07/18/2022 6:26 AM [facility] Anion Gap 11 9 - 18 mmol/L 07/18/2022 6:26 AM [facility] Estimated Glomerular Filtration Rate 13(L) >=60 mL/min/1. 73m 07/18/2022 6:26 AM [facility] Comment:Estimated Glomerular Filtration Rate [...] Kwasi Osullivan MD LABORATORY Final Resul t [facility] [address] [place] [address], [place] from Last 3 Months or Most Recently Relevant to Health Maintenance Insurance MEDICARE Member Subscriber Plan / Payer (Ef fective 2007-Present) Name:Lonny gallagher Member ID:[id number] Relation to Subscriber:Self Name:Lonny Lott Subscriber ID:[id number] Payer ID:Not on file Group ID:Not on file Type:Medicare Address: [facility] [place] [id number] [place]ICAID [place] MEDICARE Care Teams Shirt Folding Machine Operator Relationship Specialty Start Date End Date Anton Mcgee DO [address] [place] [address] PCP - General Family Medicine 05/06/22
--- OUTSIDE RECORDS SUMMARY | 2025-01-18 14:00 | XMS_ITS | Clinical Summary ---
Author Organization [employer] [facility] Address [id number] [address] [place] [address] Care Team Providers Care Section Cutter Name Role Phone Katlin Castellanos PA-C Primary Care Provider +1 -[phone] Social History Tobacco Use Types Packs/Day Years [...] on file Insurance [place]ICAID [place] Care Teams Section Cutter Relationship Specialty Start Date End Date Katlin Castellanos PA-C [facility] [address] [place] [address] PCP - General Physician Museum Archivist 07/22/23
--- OUTSIDE RECORDS SUMMARY | 2025-01-18 14:00 | XMS_ITS | Encounter Summary ---
Author Organization [facility] Address [address] [place] [address] Phone Care Team Providers Care Supervisor Cutting Department Name Role Phone Anton Mcgee DO Primary Care Provider +1- [phone] Encounter Details Date Type Department Care Team (Late st Contact Info) Description 01/11/2022 Orders Only [facility] [address] [place] [address] Conversion, Onbase Social History Tobacco Use Types [...] on filedocumented in this encounter Care Teams Supervisor Cutting Department Relationship Specialty Start Date End Date Anton Mcgee DO [address] [facility] [place] [address] PCP - General 04/07/99 documented as of this encounter
== END 2025-01-18 13:53 | disposition home or self-care (01) ==
LOC: WC 13:52
PROVIDERS: Visit Provider Physician Assistant
DX: E11.621 Type 2 diabetes mellitus with foot ulcer (principal); L97.422 Non-pressure chronic ulcer of left heel and midfoot with fat layer exposed; L89.614 Pressure ulcer of right heel, stage 4; L97.415 Non-pressure chronic ulcer of right heel and midfoot with muscle involvement without evidence of necrosis
CPT/HCPCS: G0463

== ENCOUNTER 2025-03-10 08:00 | Outpatient (OUT) | payer MEDICARE, MEDICAID, SELFPAY ==
--- OUTSIDE RECORDS SUMMARY | 2025-03-11 19:10 | XMS_ITS | Continuity of Care Document ---
Author Organization [facility] Address [address] [place] [address] Phone Care Team Providers [facility] [facility] Manager Name Role Phone NON STAFF Primary Care Provider Unavailabl Johan Mathis MD Attending Provider Jailene Argueta DIGITAL SOLUTION ARCHITECT-C Attending Provider Fawad Rocha MD Attending Provider Fawad Rocha MD Other Provider [phone] Mervat Santiago DIGITAL SOLUTION ARCHITECT-C Attending Provider [phone] [facility] Primary Care Provider Yisel Andrade MD Attending Provider Anna Martin Attending Provider Care Teams Visit Care Team Team Status: Active Member Role/Relationship Status Dates NON STAFF Primary Care Provider Active Start: December 29, 2024 Rosibel Colby ProviderActiveStart: December 29, 2024 Visit Care Team Team Status: Inactive Member Role/Relationship Status Dates NON STAFF Primary Care Provider Active Start: January 04, 2025 End: January 04, 2025AGUSTINA EnglandCAtchandrakant ProviderActiveStart: January 04, 2025 End: January 04, 2025 Visit Care Team Team Status: Active Member Role/Relationship Status Dates NON STAFF Primary Care Provider Active Start: January 13, 2025 Rosibel Starr ProviderActiveStart: January 13, 2025 Soumya Starr ProviderActiveStart: January 13, 2025 Visit Care Team Team Status: Inactive Member Role/Relationship Status Dates ELÍAS Quigley Attending Provider Active Start: January 25, 2025 End: January 25, 2025 Visit Care Team Team Status: Active Member Role/Relationship Status Dates Services [facility] Primary Care Provider Active Start: February 03, 2025 Rosibel Mejia ProviderActiveStart: February 03, 2025 Visit Care Team Team Status: Inactive Member Role/Relationship Status Dates Services [facility] Primary Care Provider Active Start: March 01, 2025 End: March 01, 2025Rosibel Starr ProviderActiveStart: March 01, 2025 End: March 01, 2025 Visit Care Team Team Status: Inactive Member Role/Relationship Status Dates Olga Lidia Martin MD Attending Provider Active Start : March 02, 2025 End: March 02, 2025 Visit Care Team Team Status: Inactive Member Role/Relationship Status Dates Olga Lidia Martin MD Attending Provider Active Start : March 04, 2025 End: March 04, 2025 Visit Care Team Team Status: Inactive Member Role/Relationship Status Dates Johan Taylor MD Attending Provider Active Star t: March 07, 2025 End: March 07, 2025 Visit Care Team Team Status: Inactive Member Role/Relationship Status Dates Olga Lidia Martin MD Attending Provider Active Start : March 09, 2025 End: March 09, 2025 Patient Care Team Team Status: Inactive Member Role/Relationship Status Dates Olga Lidia Martin MD Attending Provider Active Start : March 11, 2025 End: March 11, 2025 Chief Complaint and Reason for Visit Chief Complaint Admit Date GO OVER VEIN MAPPING DONE 12/07/24 IN OFFI CE January 04, 2025 9:16am ESRD January 13, 2025 10 :25am e11.9 January 25, 2025 1 0:45am Fistula Graft placement f/u February 9:08am Reason for Visit Admit Date End-stage renal disease on hemodialysis January 04, 2025 9:16am ESRD (end stage renal disease) on dialys is March 01, 2025 9:08am Reason for Referral Type Reason(s) Provider Provider Contact Information Hilda stroud Address Start Date Call for appointment. I would like to see you in 2 to 3 weeks if no problems before Anabel Rocha MDWork Phone: [phone] [address] [address] Allergies, Adverse Reactions, Alerts Allergen Type Severity Reaction Last Updated Verified Status Comments codeine Allergy Unknown Unknown Reaction March 01, 2025 9:21am Yes Active It just doesn't feel right lisinopril Allergy Unknown Swelling of Lip/Tongue/Throa t, anaphylaxis March 01, 2025 9:21am Yes Active Social History Smoking Status Status Start Date End Date Date of Observa tion Smokes tobacco daily (finding) January 13, 2025 10:35am Observation Status Observation Response Date of Response Legal Sex Male (finding) Sex Assigned At BirthMaleDecember 1949 Family History Relationship Condition Age at Onset Recorded Date/T rd mother Diabetes mellitus Unknown HypertensionUnknownDisorder of kidneyUnknownfatherDiabetes mellitusUnknown HypertensionUnknownDisorder of kidneyUnknownsisterDiabetes mellitusUnknown brotherDiabetes mellitusUnknownbrotherDiabetes mellitusUnknowndaughterFamily history of mental disorderUnknownHeart diseaseUnknownDiabetes mellitusUnknown fatherDiabetes mellitusUnknownDeceasedUnknownmotherHypertensionUnknownDiabetes mellitusUnknownDeceasedUnknown Problems Active Problems Problem Diagnosis/Recorded Date Onset Date Status C omments TOM (acute kidney injury) May 25, 2020 12:33pm Unkn own Active Complication of nephrostomyApril 2022 3:08amUnknownActiveUTI (urinary tract infection)May 25, 2020 4:15pmUnknownActiveHydronephrosisApril 2023 10:46amUnknownActivePatient has history of nephrolithiasis with left-sided hydronephrosis. Patient is supposed to follow with Dr. CALZADA in urology office. Patient had left percutaneous nephrostomy tube placed which was removed 3 months ago. Patient has been refusing to follow-up with urology and he did refuse intervention during hospitalization on October 2022.HydroureteronephrosisFebruary 2020 3:12pmUnknownActiveWound of right footAugust 2023 3:09pmUnknown ActivePressure ulcer, stage IIIJuly 2019 9:38amUnknownActiveLab test positive for detection of COVID-19 virusAugust 2021 8:09amUnknownActive COVID-19August 2021 10:03amUnknownActiveObstruction of nephrostomy tube July 17, 2022 3:08amUnknownActiveType 2 diabetes mellitus with diabetic chronic kidney diseaseFebruary 2020 1:38pmUnknownActiveType 2 diabetes mellitus with foot ulcerAugust 2021 4:08pmUnknownActiveDiabetes mellitus with ulcer of footFebruary 2020 5:33pmUnknownActiveHigh anion gap metabolic acidosisFebruary 2020 12:19pmUnknownActiveSecondary hyperparathyroidismJune 2024 9:20amUnknownActiveDialysis AV fistula malfunctionOctober 2023 3:12pmUnknownActiveBacterial infection due to Proteus mirabilisFebruary 2020 10:30amUnknownActiveDiabetesJuly 2024 7:50pmUnknownActiveAlcohol abuseFebruary 2020 12:32pmUnknownActiveUnable to care for selfFebruary 2021 12:08pmUnknownActiveDiabetic foot ulcerMay 2022 11:53amUnknownActiveDiabetic foot ulcerMay 2022 2:29pmUnknown ActiveDiabetic foot ulcerJuly 2022 5:46pmUnknownActiveDiabetic foot ulcer November 2019 2:10pmUnknownActiveAV fistula infectionApril 2023 10:28amUnknownActiveAnemiaOctober 2019 9:20amUnknownActiveAnemiaAugust 2021 11:39pmUnknownActiveAnemiaJuly 2022 5:46pmUnknownActiveAV fistulaApril 2023 10:29amUnknownActiveBacteremiaJuly 2022 5:46pm UnknownActiveHemodialysis access, AV graftMarch 2023 4:04pmUnknownActive DiarrheaJune 2024 2:04pmUnknownActiveType 2 diabetes mellitus with peripheral neuropathyJune 2024 9:37amUnknownActiveHyponatremiaFebruary 2020 1:30pmUnknownActiveNephrolithiasisFebruary 2020 12:19pmUnknown ActiveLeukocytosisAugust 2021 8:07amUnknownActiveCKD (chronic kidney disease)July 17, 2022 3:08amUnknownActiveBilateral ureteral calculiFebruary 2020 3:11pmUnknownActiveAnemia in chronic kidney disease (CKD)November 20, 2021 2:58pmUnknownActivePVD (peripheral vascular disease)March 21, 2020 9:36amUnknownActiveHypertensive chronic kidney disease with stage 5 chronic kidney disease or end stage renal diseaseApril 2023 10:47amUnknownActive Clotted renal dialysis AV graftJuly 2024 5:01pmUnknownActiveSepsisFebruary 2020 9:08amUnknownActiveESRD (end stage renal disease) on dialysisJun2024 10:05amUnknownActivePAD (peripheral artery disease)November 19, 2021 8:07amUnknownActiveFoot drop, rightJune 2024 9:38amUnknownActiveMetabolic acidosisMay 2022 11:49amUnknownActivePeripheral vascular occlusive disease June 24, 2023 10:20amUnknownActiveHydronephrosis, leftAugust 2021 10:17pmUnknownActiveRenal calculus, leftFebruary 2020 3:12pmUnknownActive Osteomyelitis of footAugust 2021 1:18pmUnknownActiveOsteomyelitis of foot November 21, 2021 6:37pmUnknownActiveRenal hemorrhage, leftApril 2022 3:08amUnknownActiveCellulitis and abscess of right legAugust 2021 8:07am UnknownActiveOsteomyelitisMay 2022 12:59pmUnknownActiveOsteomyelitisMay 2022 2:29pmUnknownActiveHyperkalemiaAugust 2021 10:44amUnknownActive Potassium in the high range of normal related to progressive chronic kidney disease and obstructiveuropathy. He is on potassium supplement that will be stopped. Continue furosemide 40 mg twice a day.Acute hyperkalemiaAugust 2021 1:18pmUnknownActiveInfection due to Stenotrophomonas maltophiliaJuly 2022 10:35amUnknownActiveInactive/Resolved Problems Problem Diagnosis/Recorded Date Onset Date Status C omments Ulcer of left heel September 23, 2024 7:16pm Unknown Resol gabriel Left against medical adviceJuly 2022 2:31pmUnknownResolvedElevated troponin I levelJune 2024 6:50pmUnknownResolvedBacteremiaJuly 2022 12:40pmUnknownResolvedCellulitisJune 2024 2:04pmUnknownResolvedUlcer of right heelJune 2024 7:16pmUnknownResolvedHypoglycemiaJuly 2022 10:40amUnknownResolvedSyncopeJuly 2024 12:17pmUnknownResolvedSuperficial lacerationJune 2024 10:12pmUnknownResolvedNauseaJune 2024 6:50pm UnknownResolvedNauseaJune 2024 6:11pmUnknownResolvedContusion of leg, right September 15, 2024 10:12pmUnknownResolvedAbrasion of fifth toe of right footJuly 2024 12:17pmUnknownResolved Medications Medication Status Dose Units Route Directions Qty Days Refills S tart Date Stop Date End Date Reason(s) Instructions Adherence Furosemide 40 mg tablet Discontinued 40 MG PO Hayley ly December 24, 2016 11:00pmFebruary 2020 12:42pmAtorvastatin 40 mg tablet Ulcgnikpqqxf43RYPBQjimyCtblqtnxf 19th, 2017 11:00pmFebruary 2020 9:40am Amitriptyline 50 mg gurpyrAldffjsywgra85ARGATakbiVllnxqios 19th, 2017 11:00pm May 25, 2020 9:40amPotassium Chloride 20 mEq tablet,ER particles/crystals Ksfezddqapez66OUJNGRvrlzKjgumfrge 19th, 2017 11:00pmOctober 2019 8:53am Tamsulosin (Flomax) 0.4 mg capsule,extended release 57thRagvpcexenxw1.4MGPOTwice dailySept2016 11:00pmJanuary 2022 10:08amGabapentin 800 mg uvhkfbQkdadrbmwyvt058ETDFKrpvg dailySept2016 11:00pmDecewinslow [facility] 2019 9:06amInsulin Aspart U-100 100 unit/mL yknvfewlMbvwzlowatew93eivwvdl scale doseSUBCUTBefore meals and at bedtimeSept2016 11:00pmOctlexington va medical center 2019 7:30amInsulin Detemir U-100 100 unit/mL rfohgzcuKjzorcwpxpgi9WMZRQSBSDW Before meals and at bedtime Protocol: *If the corrective scale dose has been administered within the past 4 hours, do not use corrective scale again unless approved by prescriber* Condition: Corrective Scale #2 (TDI 26-50 UNITS) Condition: Dose/Route: Instructions: Condition: Fingerstick Blood Glucose Dose/Route: Insulin Units Condition: 150-199 mg/dl Dose/Route: 2 unit Condition: 200-249 mg/dl Dose/Route: 3 unit Condition: 250-299 mg/dl Dose/Route: 5 unit Condition: 300-349 mg/dl Dose/Route: 7 unit Condition: 350-399 mg/dl Dose/Route: 8 unit Condition: greater than or = 400 mg/dl Dose/Route: 9 unit Instructions: Call ProviderSept2016 11:00pmDece2019 9:30am. Please contact the information source for Protocol details.Multivitamin Tablet Krsxuxachgzx6RFJQBCpcjyMvpbveywd 19th, 2017 11:00pmFebruary 2020 12:43pm Ferrous Sulfate 325 mg (65 mg iron) NqirutYywpqyjauijs428EPHUEnsuuOhvaoryor 19th, 2017 11:00pmOctober 2019 8:52amAspirin 81 mg Tablet,Chewable Fxnjxktlrdxq55OAOCPaxebPirnygvxi 19th, 2017 11:00pmFebruary 2020 12:39pm Vitamin B Complex OcacpagQtinxfcthdhi8HBARLQgiyeGttdbjwad 19th, 2017 11:00pm May 25, 2020 12:45pmAmoxicillin-Pot Clavulanate (Augmentin) 875-125 mg TabletDiscontinuedSept2016 11:00pmJuly 2019 8:55amDuloxetine 20 mg capsule,delayed release(DR/EC)DiscontinuedSept2016 11:00pmJuly 2019 9:01amCholecalciferol (Vitamin D3) (Vitamin D3) 2,000 unit Capsule Jtlddplkqakm9271MTHMIKAjdwwXutycngko 19th, 2017 11:00pmbruary 2020 12:40pmLactobacillus Combination No.4 (Probiotic) 3 billion cell Capsule DiscontinuedSept2016 11:00pmSept2019 7:19amPlecanatide (Trulance) 3 mg rmiuutHdwhzeropaff6FMFLYcrps226Ydhikamaw 19th, 2017 11:00pm January 26, 2020 8:53amGabapentin (Neurontin) 800 mg BkxbghYrmnpndfyjin471YQKH Three times dailyJanuary 25, 2020 11:00pmAugust 2021 6:18pmAcetaminophen (Tylenol) 325 mg AveyksPrmyuidlpnqs368EWOML7F as needed for PainDece2019 12:00amJuly 2022 11:42amDuloxetine 20 mg Capsule,Delayed Release(Dr/Ec)Wksprjofygwc25WTYNEjtde dailyMarch 21, 2020 12:00amJune 2022 3:38pmPotassium Chloride (Klor-Con M20) 20 mEq Tablet,Er Particles/Crystals Shganqvcciav92GURCOBumum dailyMarch 21, 2020 12:00amFebruary 2020 12:44pmInsulin Aspart U-100 (Novolog U-100 Insulin Aspart) 100 unit/mL Solution Avfkhqhpogsh3YQGCNCMXETExeovGlmcqkdr 15th, 2020 12:00amFebruary 2020 12:42pmwith supperInsulin Aspart U-100 (Novolog U-100 Insulin Aspart) 100 unit/mL MvmiqsvbTbnbgt1YIHYJJAOESYkpzpo meals and at bedtime Protocol: *If the corrective scale dose has been administered within the past 4 hours, do not use corrective scale again unless approved by prescriber* Condition: Dose/Route: Instructions: Condition: Fingerstick Blood Glucose Dose/Route: Insulin Units Condition: 151-200mg/dl Dose/Route: 2 unit Condition: 201-250mg/dl Dose/Route: 4 units Condition: 251-300mg/dl Dose/Route: 6 units Condition: 301-350mg/dl Dose/Route: 8 units Condition: 351-400mg/dl Dose/Route: 10 units Condition: 401-450mg/dl Dose/Route: 12 units Condition: 451-500mg/dl Dose/Route: 14 units Condition: Greater than or = 500 mg/dl Instructions: Call Provider Condition: Custom Scale 1:___ Instructions: GIVE 1 UNIT OF ASPART FOR EVERY ___MG GLUCOSE Instructions: STARTING AT 150MG AT BG CHECKSMarch 21, 2020 12:09xw523-673 0 units 201-250 2 units 251-300 4units 301-350 6 units 351-400 8 units 401-450 10 units over 400 call doctor Please contact the information source for Protocol details.UnknownFerrous Sulfate 325 mg (65 mg iron) IqxlfnLhmjpfldfmqp979YALPWsguqVkyctkgl 2019 12:00amFebruary 2020 12:41pmLosartan 25 mg MlwinePtkntlfnlidi39AXFOCtwts March 21, 2020 12:00amFebruary 2020 12:35pmDextromethorphan- Benzocaine (Cepacol Sore Throat-Cough) 5-7.5 mg HhfxmgzLtxzhqgugxne0SGRIPHKZLB0U as needed for Sore ThroatDecemb2019 12:00amFebruary 2020 12:41pm Alpha Lipoic Acid 300 mg AujkhtwUidlrnqnhmrz217DDJGBosqlPzibzxcb 15th, 2020 12:00amJuly 2022 11:42amLactobacillus Combination No.4 (Probiotic) 3 billion cell YmgpiijPclhqyaurdbo8140VFR CELLSPODailyDece2019 12:00am May 25, 2020 12:43pmPlecanatide (Trulance) 3 mg BochvzUyzvwdyprfor9ZPIK DailyDe2019 12:00amFebruary 2020 12:44pmCephalexin 500 mg OasqmlfVzpuvbhtfiav9306KEHGO99L60429Ahag 2020 11:00pmFebruary 2021 12:34pmTamsulosin (Flomax) 0.4 mg CapsuleDiscontinued0.4MGPOTwice dailyApril 2022 11:00pmJune 2024 12:10pmDuloxetine 60 mg capsule,delayed release(DR/EC)Ojimgr84LPMBEpvnq at bedtimeJune 2022 11:00pmUnknownMeropenem 500 mg Recon SolnDiscontinued0.9UYFLM95S85010Nhca 2022 11:00pmJuly 2022 3:04pmVancomycin - Pharmacy OdvvabYzuhhpgyygne2ZZDYYBUyhz as needed for iodqgznqw374Kcms 7th, 2023 11:00pmJuly 2022 11:42am1 gm IV q 48 with pharmacy to dose for 40 daysNifedipine 60 mg Tablet Extended Release 24hr Wgvlmctieiyd67MZONZhzqk80066Jtkb 2022 11:00pmJuly 2022 11:41amSodium Bicarbonate 650 mg LrnsxhFfrymmhtqzam2759KYCWJwlph times pdpof556274Rods 7th, 2023 11:00pmDecember 2022 11:33amNifedipine 60 mg tablet extended release 05skKlxuidncgeqj25MMZEXvkuk morningJuly 2022 11:41amJune 2024 1:44pm 30mg and 60mg tab for 90mg totalLoperamide 2 mg ossxvwbTffwbh4DNGFHAOEQ 2-3 HOURS as needed for loose rveys094Inuo 19th, 2025 11:00pmadminister after each loose stool until symptoms controlled; do not exceed 8 mg per 24 hrsUnknown Losartan 50 mg NovcoeFyzzmzoyksnq52DSIIXndsrVwgw 2019 11:00pmOctober 2019 8:53amLosartan (Cozaar) 50 mg RfcmdbUgfkafounuqf11WBGKVtfehFzpn 2019 11:00pmOctober 2019 8:53amClopidogrel (Plavix) 75 mg CivwrcCupkevvqdlwb45 MGPODailyJuly 2019 11:00pmDecember 2019 9:35amAcarbose 100 mg Tablet Ycdzcvtqsics827AAUBCyxxl times dailyJuly 2019 11:00pmDecemb2019 9:34amDuloxetine (Cymbalta) 60 mg Capsule,Delayed Release(Dr/Ec)Pdtyjzeivltv59KR PODailyJuly 2019 11:00pmDecember 2019 9:05amLiraglutide (Victoza 2- Lorne) 0.6 mg/0.1 mL (18 mg/3 mL) Pen InjectorDiscontinued1.8MGSUBCUTDailyJuly 2019 11:00pmDecember 2019 9:35amLevofloxacin (Levaquin) 750 mg Tablet Dywevjkiwcwa210XHRBOyngvAyxm 2019 11:00pmJuly 2019 9:04amInsulin Detemir U-100 (Levemir U-100 Insulin) 100 unit/mL GygjtfauQgwsgfyceylj67MROW SUBCUTDaily at bedtimeJanuary 18, 2020 11:00pmMarch 21, 2020 9:30amSodium Hypochlorite (Dakin's Solution) 0.25 % voszsuzkWbeeammppcnd9UJSRSGYGLHINRNjes025 2Oct2019 11:00pmMarch 21, 2020 9:35amWITH DRESSING CHANGES Clindamycin Phosphate 1 % yrmKxqkllpsuxiv8HUVLHPEVATGGYKhgg201Whxtsua 13th, 2020 11:00pmOct2019 9:11amWITH DRESSING CHANGESClindamycin Hcl 300 mg uhetqnwDdedwixpctqn123XCNXTlhd times dailyJanuary 27, 2020 11:00pmFebruary 14, 2020 1:47pmAmoxicillin-Pot Clavulanate (Augmentin) 875-125 mg tablet Yszbhwadnpzr2RWSYGMfpjc kpzdh14127Ngmmsrid2019 12:00amMarch 15, 2020 9:52amCephalexin (Keflex) 500 mg vjptoueYkpafcvbfsyv055WIJMI7C57882Lsycrief 9th, 2020 12:002019 9:34amClindamycin Hcl 300 mg capsuleDiscontinued 153EJLKX2Q89725Sdxlibcn 9th, 2020 12:002019 9:35amSodium Hypochlorite (Dakin's Solution) 0.25 % qewiqvnlNvdzounoybgk0GTFGSDHMTSCCJYptea 4732Dece2019 12:002019 9:35amAmoxicillin-Pot Clavulanate (Augmentin) 875-125 mg xohmulIodevmilmcbe9UGTTFRewsv tophj87465 April 04, 2020 12:00amJanuary 2020 9:32amCephalexin (Keflex) 500 mg qaonnzbTfgyaqjzjxhe456IVAGTywuo times sqksb98323Znhvhac 2020 12:00am May 10, 2020 9:59amClindamycin Hcl 300 mg odtmtliJezukfuthfaz983VYRLUsnle times djpgw29682Yhvbeqx 2020 12:00amFebruary 2020 9:59amLevofloxacin 500 mg dnuderUlhhjjwsjwld136UZTCKijoa40524Waqwcmkp 2020 12:00amFebruary 2020 10:55amAtorvastatin 10 mg tjulmmEullzc16OCXZNnlhaovMkupdlbs 2020 12:00amUnknownClopidogrel 75 mg mxtotkNhcyyj91UFTPUbpjtSvxmjbwj 2020 12:00amUnknownAmitriptyline 10 mg ratfvyHqrgozrsowzz49FGWZQnnzwewVwnyvsne 2020 12:00amApril 2022 6:26amAcarbose 100 mg lrmffwDbyptbkfcmob726JGRC Three times dailyFebruary 2020 12:00amFebruary 2021 12:34pmAmmonium Lactate 12 % LmbhxLdxyylvxgrld3VUOFUSNAZPDNRFvygk shiftFebruary 2020 12:00amJuly 2022 11:42amapply to intact areas of BLE every day shift tukrystal archuletau satDoxycycline Hyclate 100 mg fzhagwUuzeitdipflx716LZTNDshkdAjufalys 2020 12:00amFebruary 2020 12:35pmSodium Hypochlorite 0.25 % Solution Xqwnnzpisquz1JQRRZITHULPPY4 Times a weekFebruary 2020 12:00amJune 2020 4:24pmInsulin Detemir U-100 100 unit/mL (3 mL) Insulin FfuEfzcdhupvbmp44 UNITSUBCUTDailyFebruary 2020 12:00amFebruary 2021 12:27pmLiraglutide 0.6 mg/0.1 mL (18 mg/3 mL) Pen InjectorDiscontinued1.8MGSUBCUTDailyFebruary 2020 12:00amJune 2020 4:24pmSemaglutide (Ozempic) 0.25 mg or 0.5 mg(2 mg/1.5 mL) pen injectorDiscontinued0.5MGSUBCUTevery weekFebruary 2020 12:00amFebruary 2020 12:35pmOn WednesaysEmpagliflozin 10 mg Tablet Yywhuexwuxwl49WCLLOgrzmQajffunu 2020 12:00amFebruary 2020 12:35pm Ferrous Sulfate 324 mg (65 mg iron) Tablet,Delayed Release (Dr/Ec)Discontinued 324MGPOEvery 48 pvgew07Jqixlykq 2020 12:00amFebruary 2021 12:34pm Cefditoren Pivoxil (Spectracef) 400 mg lmfumgAdkheeyrsdlm285QFAEXfiyn422Nmvifrsb 2020 12:00amMarch 2020 2:41pmmust administer with a meal/food Ascorbic Acid (Vitamin C) 500 mg MwnguyAmdsvrhzsmfu318UITWBltywPgmxrqzo 2021 12:00amJuly 2022 11:42amAcarbose 100 mg QncwatAhrswnjcxyyp619EQCF Three times dailyFebruary 2021 12:00am[facility] 1:45pmFerrous Sulfate 325 mg (65 mg iron) FhxrivBecfwwnsaais804WZUHCbxyoWnxmtzdy 2021 12:00am November 14, 2021 12:21pmLosartan 25 mg mafwwrFqnsbfcfkvmx35VWFCMebcvJfmgtsxp 2021 12:00amAugu2021 6:18pmNacl-Zn Ac-Vit B6-Citric Acid (Wound Cleanser) [place],Non-ZjbhaalWctsynimuvkm8WOJNLPALJGGIHHCDzwndUfbxkuhm 2021 12:00[facility]2021 12:21pmInsulin Detemir U-100 (Levemir Flextouch U100 Insulin) 100 unit/mL (3 mL) insulin hrwLwriwmocwgev66RTOPZYGSWOHwloq morning May 18, 2021 12:00amSeptember 11, 2024 1:49pmMelatonin 5 mg KftqipJubwll3OCGK Bedtime as needed for InsomniaFebruary 2021 12:00amUnknownPotassium Chloride 20 mEq Tablet Extended EorgeohBdueomhxyohp01GFYWWLiqvnHwoxjwpn 11th, 2022 12:00amApril 2023 4:46pmFerrous Sulfate 324 mg (65 mg iron) tablet,delayed release (DR/EC)Ususkkaimhug318ZVGAslqgi Friday, Friday, and FridayFebruary 2021 12:34pmJuly 2022 11:42amFolic Acid 1 mg tablet Kyqevo2CFDOUllwnQbmlpg 2021 11:00pmUnknownLoteprednol Etabonate 0.5 % Drops,NdvwiuutggFjchisncihjl8KTUFNNBZ-ELAJJtbb times dailyAugust 2021 11:00pmApril 2022 6:26amSodium Hypochlorite (Dakin's Solution) 0.25 % HimbflazSwejroavusqd3XERVMYNAODUDTmmbe dailyAugust 2021 11:00pmOctober 2021 3:06pmFurosemide 40 mg KucmygTmeekzlchnsz11ZZBQDDD@0800,783360Knjgvh 2021 11:00pmJanuary 2023 8:36amPolyethylene Glycol 3350 (Miralax) 17 gram Powder In NypqckExnqfv06YRDNEjihr32Vwbnsw 2021 11:00pmUnknownNifedipine 30 mg Tablet Extended Release 24 NoWbuyjljnhxpj52KHVCWevmz20Oyiapq 16th, 2022 11:00pmJune 2022 1:36pmSodium Bicarbonate 650 mg PpjoplTafdneymtdma131WNFB Three times istnc61Zhvuvi2021 11:00pmJune 2022 1:36pmSaccharomyces Boulardii (Florastor) 250 mg DpxqnlgDsrdxlemnaoj899HLHYSuofy daily with meals00 November 20, 2021 11:00pmJuly 2022 11:42amLosartan 25 mg tablet Dhkujcjsjxcf07VOLUQlfwa879Iynyym 2021 6:13pmJuly 2022 11:42am Gabapentin 600 mg FwbqudUvnuhddvtdda560JNSKXxfsh qttcrbj92LikswsNovember 20, 2021 11:00pmJanuary 2023 8:36amVancomycin In Dextrose 5 % 1 gram/250 mL solutionDiscontinued0.ROUTE.ZHSLHAO67320Tujasb 2021 11:00pmOctober 2021 3:03pmFor a TOTAL of 10 days of treatmentCephalexin 500 mg capsule Rzxrccisgbjy059KTRQB0Q3706Vlu 2022 11:00pmJune 2022 1:32pm Sulfamethoxazole-Trimethoprim (Bactrim Ds) 800-160 mg rbeoyhPllsjswqotek6NLTQM I88S3371Flj 2022 11:00pmJuly 2022 11:42amAmmonium Lactate 12 % dwlntyFqvath0FQKKENUWERMQMMtctfSrlr 2022 11:00pmUnknownLevofloxacin 750 mg FnrmztCslspgsbcsos616BLOGX12J098Tlrd 2022 11:00pmOctober 2022 12:18pmFerrous Sulfate (Ferosul) 325 mg (65 mg iron) gfvvyaSfogbv072FUPFTiira April 02, 2023 12:00amUnknownLosartan 50 mg lserjoYbhetpxxuivq53OZASZgzao morningDece2022 12:00amJune 2024 1:49pmClonidine Hcl 0.1 mg tabletDiscontinued0.1MGPOTwice dailyDecemb2022 12:00amJune 2024 1:44pmErgocalciferol (Vitamin D2) 50,000 unit AmxbigXspqrs01200STSSWWeqqkz week April 02, 2023 12:00amUnknownAscorbic Acid (Vitamin C) (Vitamin C) 500 mg IlzrxtKkrbjn429DHOZEdduvUwbzjeyo 27th, 2023 12:00amUnknownSodium Bicarbonate 650 mg evwrsvRwyzvlmwwpjq728QKBJUsqom times dailyDece2022 11:33amJune 2024 1:50pmFurosemide 40 mg ssechqXyehumfhtjwp67DCOFChopx dailyJanuary 2023 8:35amJune 2024 12:10pmGabapentin 600 mg nmnptqHagoikmmavbl686 MGPODaily at bedtimeJanuary 2023 8:35amSeptember 11, 2024 1:47pmOndansetron 4 mg tablet,tbawleomahltcaFicdqbwnvqmt2ZUKGJdkqg 8 msbmf3195SlabSeptember 08, 2024 11:00pm September 11, 2024 1:50pmDocusate Sodium 100 mg jdohtytYgyhnl493IRGOHkyaw as needed for constipationSeptember 09, 2024 11:00pmUnknownMetoprolol Succinate 25 mg tablet extended release 24 sfMcqixeipabve31.5MGPODailySeptember 09, 2024 11:00pmSeptember 14, 2024 12:10pmCalcium Acetate(Phosphat Bind) 667 mg hxwndtrWjzysm740QTGVCXGMK TIMES DAILY WITH MEALSJun2024 11:00pmUnknownGabapentin 300 mg capsule Kjiynf083FDSJYaaglqfIzjj 6th, 2025 11:00pmUnknownInsulin Degludec (Tresiba Flextouch U-200) 200 unit/mL (3 mL) insulin eixWddogk15SEVRQMPLILFbayiUirp 6th, 2025 11:00pmUnknownLevofloxacin 500 mg ZpgphjCtginzbttsai604DNUFMkzfa 48 hours47 0September 13, 2024 11:00pmSeptember 23, 2024 6:28amMidodrine 5 mg obeiqdZfcdfe4OQWE Three times oqtuu079UwywSeptember 13, 2024 11:00pmdo not give last dose of day after 6PM or within 4 hrs of bedtimeUnknown IV Medications Medication Contents Directions Start Date Ertapenem [INVanz] 0.5 gm Ertapenem [INV anz], Sodium Chloride 0.9% 100 ml [0.9% Sodium Chloride 100 ml]200 mls/hr IV Q24H November 20, 2021 11:00pm Immunizations Immunization Event Date Not Given Reason Dose Number Service Advocate Contact Lot Number Reason(s) Given Vaccine Information Statement (VIS) Detail Administration Location COVID-19 [id number] (Moderna) August 03, 2020 COVID-19 mRNA-1273 (Moderna)September 05OVID-19 mRNA-1273 (Moderna)February 20, 2021Tetanus, Diphtheria, Pertussis (Tdap)September 15, 20240910SJ8H7BwqsmmsrjMer[facility] Equipment Device Date Implanted Device Details Double-lumen haemodialysis c atheter, implantable August 05, 2023 SHELLEY: [id number] Synthetic vascular graft April 16, 2023 SHELLEY: [id number] Synthetic vascular graft January 13, 2025 SHELLEY: [id number] [id number] Polymeric ureteral stent May 25, 2020 SHELLEY : [id number] Polymeric ureteral stent May 25, 2020 SHELLEY : [id number] Double-lumen haemodialysis c atheter, implantable October 15, 2024 SHELLEY: +[id number]/$$[id number] Relevant Diagnostic Tests and/or Laboratory Data Laboratory Results Test Collection Date/Time Result Date/Time Result Interpretation Reference Range Result Comment Performing Site Corrected White Blood Count January 25, 2025 9:45am January 25, 2025 9:16pm 12.6 10*3/uL Above high normal 4.1-10.5 [facility] [id number] [address] [facility] [address]Dapldbxrxpw WBC CountOctober 2024 9:45amOctober 2024 9:16pm12.6 10*3/uLAbove high normal4.1-10.[facility] [id number] [address] [facility] [address]Fev Blood CountOct2024 9:45amOctober 2024 9:16pm3.67 10*6/uLBelow low normal3.90-5.60[facility] [id number] [address] [facility] [address]MplstbpylmReunjqb 21st, 2025 9:45amOctober 2024 9:16pm 11.8 g/dLBelow low ljopsk00.0-17.0[facility] [id number] [address] [facility] [address]LgeqlsuwprRlrupay 2024 9:45amOctober 2024 9:16pm 36.3 %Below low uhbgze82.8-50.0[facility] [id number] [address] [facility] [address]Ecgh Corpuscular VolumeOctober 2024 9:45amOctober 2024 9:16pm99.0 fL83.5-101[facility] [id number] [address] [facility] [address]Bply Corpuscular HemoglobinOctober 2024 9:45amOctober 2024 9:16pm32.3 pg27.5-35.2[facility] [id number] [address] [facility] [address]Hwrd Corpuscular Hemoglobin ConcentOct2024 9:45am January 25, 2025 9:16pm32.6 g/dL32.5-35.6[facility] [id number] [address] [facility] [address]Xim Cell Distribution WidthOct2024 9:45amOctober 2024 9:16pm16.7 %Above high nynbnb30.0-14.8[facility] [id number] [address] [facility] [address]Ahjiqchz CountOct2024 9:45amOctober 2024 9:85wf557 10*3/uC719-844OvqebgudgOhio Valley Surgical Hospital [facility] [id number] [address] [facility] [address]Ajoj Platelet VolumeOct2024 9:45amOct2024 9:16pm9.3 fL6.6-10.1[facility] [id number] [address] [facility] [address]Aqktuqzilbr (%) (Auto)January 25, 2025 9:45amOctober 2024 9:16pm49.2 %.[facility] [id number] [address] [facility] [address]Pxxftqguqbr (%) (Auto)January 25, 2025 9:45amOctober 2024 9:16pm36.9 %.[facility] [id number] [address] [facility] [address]Xnoclzvhk (%) (Auto)January 25, 2025 9:45amOctober 2024 9:16pm10.9 %.[facility] [id number] [address] [facility] [address]Vdmuuizbxba (%) (Auto)January 25, 2025 9:45amOctober 2024 9:16pm2.4 %.[facility] [id number] [address] [facility] [address]Yvmxabekg (%) (Auto)January 25, 2025 9:45amOctober 2024 9:16pm0.6 %.[facility] [id number] [address] [facility] [address]Vmxlzchcj RBC Relative Count (auto)January 25, 2025 9:45am January 25, 2025 9:16pm0.3 /100{WBC}0-0.5[facility] [id number] [address] [facility] [address]Xbdlogdgvug # (Auto)January 25, 2025 9:45amOctober 2024 9:16pm6.2 10*3/uL1.8-7.7[facility] [id number] [address] [facility] [address]Muxxnkdvzkq # (Auto)January 25, 2025 9:45amOctober 2024 9:16pm4.6 10*3/uL1.00-4.8[facility] [id number] [address] [facility] [address]Sdzctdxvi # (Auto)January 25, 2025 9:45amOctober 2024 9:16pm1.4 10*3/uLAbove high normal0.0-0.8[facility] [id number] [address] [facility] [address]Ifteaqyuako # (Auto)January 25, 2025 9:45amOctober 2024 9:16pm0.3 10*3/uL0.0-0.45[facility] [id number] [address] [facility] [address]Rkypldbus # (Auto)January 25, 2025 9:45amOctober 2024 9:16pm0.1 10*3/uL0.0-0.2[facility] [id number] [address] [facility] [address]Ozgnfxl LevelOctober 2024 9:45amOctober 2024 9:21pm 156 mg/dLAbove high -440YAA recommended reference rangeRandom Glucose Reference Range is dependent on time and content of last meal. Glucose of more than 200 mg/dL in a nonstressed, ambulatory subject supports the diagnosisof Diabetes Mellitus.[facility] [id number] [address] [facility] [address]Pdnwr Urea NitrogenOct2024 9:45amOctober 2024 9:21pm25 mg/dL7-25[facility] [id number] [address] [facility] 28[address]CzdqstosevIrjfmed 2024 9:45amOctober 2024 9:21pm 7.18 mg/dLAbove high normal0.70-1.30[facility] [id number] [address] [facility] 15[address]Rwsnscbpi GFR (CKD-EPI)January 25, 2025 9:45amOctober 2024 9:21pm7.415 mL/MinOhio Valley Surgical Hospital Ctr [id number] [address] [facility] [address]Kxvlwe LevelOct2024 9:45amOctober 2024 9:21pm 134 mmol/LBelow low -295DcfjnancsOhio Valley Surgical Hospital Ctr [id number] [address] [facility] [address]Xldgorkhl LevelOctober 2024 9:45amOctober 2024 9:21pm4.8 mmol/L3.5-5.1[facility] [id number] [address] [place] [address]Ftjyoftvx LevelNovember 2024 11:56amNovember 2024 1:34pm2.7 mmol/LBelow lower panic limits3.5-5.1Critical Result Called to and read back by: KEYSHAWN CARDONA at: 03/02/2025 13:37:41 by:DELLOhio Valley Surgical Hospital Ctr [id number] [address] [facility] [address]Wnzihetuk LevelNovember 2024 11:48amNovember 2024 1:27pm2.9 mmol/LBelow lower panic limits3.5-5.1Critical Result Called to and read back by: KEYSHAWN CARDONA at: 03/04/2025 13:26:54 by:DELLOhio Valley Surgical Hospital Ctr [id number] [address] [facility] [address]Ehdsfycwg LevelDecember 2024 11:57amDecember 2024 1:13pm3.0 mmol/LBelow low normal3.5-5.1[facility] [id number] [address] [facility] [address]Zakffltgs LevelDecember 2024 11:13amDecember 2024 12:41pm3.2 mmol/LBelow low normal3.5-5.1[facility] [id number] [address] [facility] [address]Hsztprpvz LevelDecember 2024 11:49amDecember 2024 1:00pm2.9 mmol/LBelow lower panic limits3.5-5.1Critical Result Called to and read back by: KEYSHAWN CARDONA/VICKI at: 03/11/2025 12:59:52 by:[id number] Valley Surgical Hospital [facility]tr [id number] [address] [facility] [address]Pnuwyoby LevelOctober 2024 9:45amOctober 2024 9:21pm94 mmol/LBelow low msvpog28-782KybdzdleaOhio Valley Surgical Hospital Ctr [id number] [address] [facility] [address]Fitadj Dioxide LevelOctober 2024 9:45amOctober 2024 9:21pm27.6 mmol/L21.0-31.0[facility] [id number] [address] [facility] [address]Fgiau GapOctober 2024 9:45amOctober 2024 9:21pm17.2 mEq/LAbove high normal6.0-15.0[facility] [id number] [address] [facility] [address]Hckrcha LevelOctober 2024 9:45amOctober 2024 9:21pm 8.7 mg/dL8.6-10.3[facility] [id number] [address] [facility] 50[address]Eqxzbbvfpsq LevelOctober 2024 9:45amOctober 2024 9:20wh220 mg/yB791-892Iequ less than 200 mg/dl low riskChol 201-239 mg/dl borderline riskChol 240 mg/dl and greater high riskOhio Valley Surgical Hospital Ctr [id number] [address] [facility] [address]GET CholesterolOctober 2024 9:45amOctober 2024 9:21pm58 mg/eI41-39GTO CHOL ATP-III CLASSIFICATION Cardiovascular RiskHDL > or equal to 60 mg/dL LOWHDL < 40 mg/dL HIGHOhio Valley Surgical Hospital Ctr [id number] [address] [facility] [address]Agsjwdqwtdvgy LevelOct2024 9:45amOctober 2024 9:75ke160 mg/dL0-149TRIG ATP III CLASSIFICATIONTRIG less than 150 mg/dL NormalTRIG 150-199 mg/dL Borderline highTRIG 200-500 mg/dL High TRIG greater than 500 mg/dL Very highStandard traceable to the Center for Disease Conrtrol and Prevention (CDC) test method.[facility] [id number] [address] [facility] [address]GPK Cholesterol, CalculatedOct2024 9:45amOct2024 9:21pm73 mg/dL0-100LDL ATP III CLASSIFICATIONLDL less than 100 mg/dL OptimalLDL 100-129 mg/dL Near or above xoisyxjAIL473-214 mg/dL Borderline highLDL 160-189 mg/dL HighLDL greater than 189 mg/dL Very highOhio Valley Surgical Hospital Ctr [id number] [address] [facility] [address]IGKH CholesterolOct2024 9:45amOctober 2024 9:21pm28 mg/dLOhio Valley Surgical Hospital [facility] [id number] [address] [facility] [address]Pcysghqwfkm/HDL RatioOct2024 9:45amOctober 2024 9:21pm2.8<5.0[facility] [id number] [address] [facility] [address]Opdvfaxy Creatinine Clearance (ChemOctober 2024 9:45am January 25, 2025 9:21pmN/AFMemorial [facility] [id number] [address] [facility] [address]Lasovdcmle G4aKrnnogq2024 9:45amOctober 2024 9:04am6.9 %Above high normal4.3-5.6Increased risk for diabetes: 5.7 - 6.4diabetes: >6.4glycemic control for adults with diabetes: <7.0[facility] [id number] [address] [facility] [address]Wqeesjmhj Average GlucoseOctober 2024 9:45amOctober 2024 9:15up164 mg/dLOhio Valley Surgical Hospital [facility] [id number] [address] [facility] [address] Vital Signs Vital Reading Result Reference Range Collection Date/Time Height 74 [in_i] January 13, 2025 9:15jfKgjztt52.52 kgJanuary 13, 2025 9:35amBody Temperature 97.8 [degF]97.6-99.0January 13, 2025 9:35amHeart Rate86 /hif91-620Qzpoxcf 9th, 2025 1:40pmRespiratory rate16 /bfm11-24DzubjvgJanuary 13, 2025 1:40pmOxygen saturation by Pulse hrrtzgqa11 %95-100January 13, 2025 1:40pmBP Quabnmri646 mm[Hg]100-140 January 13, 2025 1:40pmBP Tpxosnmjz99 mm[Hg]60-100Oct2024 1:40pmBody Pytnkxamahy49.8 [degF]97.6-99.0March 01, 2025 9:22amHeart Rate62 /wdt92-052 March 01, 2025 9:22amRespiratory rate16 /cgt91-45UfjcxcxgMarch 01, 2025 9:22am Oxygen saturation by Pulse jdbiyzak87 %95-100March 01, 2025 9:22amBP Inbdjmri822 mm[Hg]100-140March 01, 2025 9:22amBP Jkkgjftmt30 mm[Hg]60-100 March 01, 2025 9:22am Advance Directives Advance Directive Response Recorded Date/ Time Advance Directives No December 8:45am Insurance Providers Guarantor Lonny Hughes Kaylie Address [address] [place] [address]Mfbxilf Info.Home Phone: Coverage Status Update:2024 Payer Group Member ID Coverage Type Subscriber Relationship to Subscriber Effective Date Expiration Date Medicaid [id number] [place] Id: [id number] [address] [place] [address] Home Phone: Email: DECLINED 2019SelfMedicare Id: [id number] E [place] Id: [id number] [address] [place] [address] Home Phone: Email: DECLINED 2019Self Encounters Encounter Location(s) Arrival/Admit Date Discharge/Departure Date Discharge/Departure Disposition Provider(s) Non-patient / Non-visit -[facility] December 29, 2024 6:00am Johan Taylor , LAURENeparted Physician/Provider Office Visit-[facility] SurgSeptember 2024 9:16amSeptember 2024 9:35amDischarged to home care or self care (routine discharge)Makenna England-patient / [facility]October 2024 10:25amLAUREN Villarrealepishan [facility] 10:45amOctober 2024 10:46amDischarged to home care or self care (routine discharge)Kyung Quigley-patient / Ecg-jmpzi-[facility] Dialysis UnitOctober 2024 5:00LAUREN Maldonadoeparted Physician/Provider Office Visit- [facility] Vascular SurgNovember 2024 9:08amNovember 2024 9:38amDischarged to home care or self care (routine discharge)[facility] 2024 11:56amNoveer 2024 11:57amDischarged to home care or self care (routine discharge)Olga Lidia Martin MD [facility]ed [facility] 11:48amNovember 2024 11:49am Discharged to home care or self care (routine discharge)[facility] 20[facility] 11:[facility]am[facility] 2024 11:58amDischarged to home care or self care (routine discharge)Johan Taylor [facility] 2024 11:18am[facility] 2024 11:19amDischarged to home care or self care (routine discharge)Olga Lidia Martin MD Departed [facility] 2024 11:50am[facility] 2024 11:51am Discharged to home care or self care (routine discharge)Olga Lidia Martin MD Recent Diagnosis Onset Date Admit Date End-stage renal disease on hemodialysis Unknown January 04, 2025 9:16am ESRD (end stage renal disease) on dialysis Unkno wn March 01, 2025 9:08am Assessments Diagnosis Onset Date Resolution Status Admit Date End-stage renal disease on hemodialysis deletedJanuary 04, 2025 9:16amESRD (end stage renal disease) on dialysis acuteMarch 01, 2025 9:08am Plan of Treatment Author Jailene Argueta [facility]20[facility] 8:47amWe reviewed his vein mapping of bilateral upper [...] catheter which functions well for him currently. Author Fawad Rocha [facility] HospitalAuthoredNovember 2024 9:42amThey can begin to use this graft we will see him back in a couple weeks to remove his catheter. Future Tests Future scheduled test information is unavailable Pending Tests Pending diagnostic test information is unavailable Future Visits Future appointment information is unavailable Future Procedures Procedure Name Ordered Date Scheduled Date Discharge Order January 13, 2025 12:57pm Virgilio rangel 2024 12:57pm Future Medications Future medication information is unavailable Patient Instructions Instruction Admit Date Know your Meds January 13, 2025 10 :25am
--- OUTSIDE RECORDS SUMMARY | 2025-03-14 15:47 | XMS_ITS | CCD ---
Author Organization [facility] Inform ion Partnership [facility] Care Team Providers Care [place] Remover Name Role Phone Johan Taylor Unavailable Olga Lidia Martin Unavailable Fawad Rocha Unavailable Yisel Andrade Unavailable [facility] Primary Care Prov ider ELBA Ochoa Attending Provider [phone] DO Ivan Springer Emergency Provider DO Maye Murray Primary Care Provider [phone] DO Chris Mccarthy Admit Provider MD Johan Taylor Other Provider MD Olga Lidia Martin Other Provider MD Jose Escobar Other Provider MD Manoj Frank Other Provider [phone] MD Hung [facility] Other Provider MD Yisel Andrade Other Provider DEEDEE Turpin Delores Other Provider UnavailDEEDEE Rene Other Provider Unavailable MD Fawad Rocha Other Provider ELÍAS Castorena Other Provider MD Raimundo Gandhi Other Provider [phone] MD Master Mauricio Other Provider ELBA Ochoa Other Provider MD Landon Grullon Attending Provider MD Kiko Corbett Other Provider DO Ramakrishna Sandoval Emergency Provider MD Kiko Corbett Attending Provider Spasic, PRINT LINE INSPECTOR-C Mervat E Primary Care Provider Spasic, PRINT LINE INSPECTOR-C Mervat E Referring Provider DO Jose M Landry II Attending Provider Riya Pitt Unavailable Master Mauricio Unavailable [phone] MD Jose Escobar Other Provider Unavailable Spasic, PRINT LINE INSPECTOR-C Mervat E Primary Care Provider Spasic, PRINT LINE INSPECTOR-C Mervat E Referring Provider DO Jose M Landry II Attending Provider Maye Murray Unavailable Unavailable Unavailable DO Maye Murray Primary Care Provider MD Kiko Corbett Attending Provider Spasic, PRINT LINE INSPECTOR-C Mervat E Primary Care Provider Spasic, PRINT LINE INSPECTOR-C Mervat E Referring Provider DO Jose M Landry II Attending Provider [phone] MD Renata Wyatt Attending Provider DO Kasey Heller Referring Provider [phone] DO Maye Murray Attending Provider Spasic, PRINT LINE INSPECTOR-C Mervat E Primary Care Provider Spasic, PRINT LINE INSPECTOR-C Mervat E Referring Provider DO Jose M Landry II Attending Provider MD Renata Wyatt Attending Provider [phone] Spasic, PRINT LINE INSPECTOR-C Mervat E Primary Care Provider Spasic, PRINT LINE INSPECTOR-C Mervat E Referring Provider DO Jose M Landry II Attending Provider Unavailable Primary Care Provider UnavailDO Maye Villela Primary Care Provider MD Kiko Corbett Attending Provider [phone] Spasic, PRINT LINE INSPECTOR-C Mervat E Primary Care Provider Spasic, PRINT LINE INSPECTOR-C Mervat E Referring Provider DO Jose M Landry II Attending Provider [phone] MAYE MURRAY Primary Care Physician Maye Murray DO Primary Care Provider DO Maye Murray Primary Care Provider [phone] MD Kiko Corbett Attending Provider Spasic, PRINT LINE INSPECTOR-C Mervat E Primary Care Provider Spasic, PRINT LINE INSPECTOR-C Mervat E Referring Provider DO Jose M Landry II Attending Provider [phone] DO Maye Murray Attending Provider DO Maye Murray Primary Care Provider Spasic, PRINT LINE INSPECTOR-C Mervat E Primary Care Provider Spasic, PRINT LINE INSPECTOR-C Mervat E Referring Provider DO Jose M Landry II Attending Provider Spasic, PRINT LINE INSPECTOR-C Mervat E Primary Care Provider [phone] Spasic, PRINT LINE INSPECTOR-C Mervat E Referring Provider DO Jose M Landry II Attending Provider [phone] MD Sonal Márquez Jr Emergency Provider Spasic, PRINT LINE INSPECTOR-C Mervat E Primary Care Provider [phone] Spasic, PRINT LINE INSPECTOR-C Mervat E Referring Provider Frantz II, DO Jose M Wiggins Attending Provider LIAM [...] Bunting, Maye Primary Care Unavailable Lauren, Srinivas Glynn Attending Unavailable Lauren, Srinivas M Admitting Unavailable [...] Unavailable Spasic, Mervat Hughes Primary Care Unavailable Ministerioowradha IIJose M Admitting Unavaila ble Ministerioowradha IIJose M Attending Unavaila ble Sonal Márquez Jr Admitting Unavailable Sonal Márquez Jr Attending Unavailable Bunting, Maye Primary Care Unavailable LuxisterRamakrishna Attending Unavailable Bunting, Maye Primary Care Unavailable Luxister Ramakrishna A Admitting Unavailable Ochoa, Bhakti Attending Unavailable [facility] Primary Care U navailable Bhakti Ochoa Admitting Unavailable Bunting, Maye Primary Care Unavailable Johan Taylor Consulting Unavailable Chris Mccarthy Admitting Unavailabl e Dojahaira, Landon E Attending Unavailab le Mario, Olga Lidia Consulting Unavailable OdJose keating Consulting Unavailable Singhania, Manoj Consulting Unavailable Persaud, Christofer Consulting Unavailable Bakhous, Aziz Consulting Unavailable Geisert, Delores Consulting Unavailable Stoney Jessica Consulting Unavailable Fawad Rocha Consulting Unavailable Jailene Castorena R Consulting Unavailable Raimundo Gandhi F Consulting Unavailable Master Mauricio Consulting Unavaildilshad e Don, Bhakti Consulting Unavailable Kiko Corbett Consulting Unavailable Julian Jones Attending Unavailable Spasic, Mervat Ellen Primary Care Unavailable Sweetie, Riya Consulting Unavailable Dojahaira, Landon Hughes Admitting Unavailab le Bakkip, Aziz Consulting Unavailable Bhakti Ochoa Consulting Unavailable Sj Barron Consulting Unavailable Kiko Corbett Admitting Unavailable Kiko Corbett Attending Unavailable Maye Murray Primary Care Unavailable Everardo, DO Walton Primary Care Provider DO Maye Murray Attending Provider MD Sonal Márquez Jr Emergency Provider Spasic, PRINT LINE INSPECTOR-C Mervat Hughes Primary Care Provider Spasilviac, PRINT LINE INSPECTOR-C Mervat Hughes Referring Provider DO Jose M Landry II Attending Provider Spasilviac, PRINT LINE INSPECTOR-C Mervat Hughes Attending Provider DO Srinivas Aguilar Emergency Provider TYSON Dwyer Emergency Provider MD Landon Grullon Admit Provider MD Riya Pitt Other Provider MD Yisel Andrade Other Provider ELBA Ochoa Other Provider MD Julian Jones Attending Provider MD Sj Barron Other Provider DO Serafin Pearson Emergency Provider MD Kevin Steinberg Admit Provider MD Kevin Steinberg Attending Provider MD Johan Taylor Other Provider MD Fawad [...] Provider MD Riya Pitt Attending Provider Spasic, PRINT LINE INSPECTOR-C Mervat E Primary Care Provider Spasic, PRINT LINE INSPECTOR-C Mervat E Referring Provider DO Jose M Landry II Attending Provider [phone] MD Pedro Drake Emergency Provider [phone] DO Maye Murray Primary Care Provider Spasic, PRINT LINE INSPECTOR-C Mervat E Referring Provider DO Jose M Landry II Attending Provider [phone] MAI Kessler Emergency Provider DO Riya Sampson Admit Provider DO Riya Sampson Attending Provider [phone] DO Jose M Landry II Attending Provider [phone] Spasic, PRINT LINE INSPECTOR-C Mrevat E Referring Provider Spasic, PRINT LINE INSPECTOR-C Mervat E Primary Care Provider MD Riya Pitt Other Provider Spasic, PRINT LINE INSPECTOR-C Mervat E Attending Provider MD Fawad Rocha Other Provider Spasic, PRINT LINE INSPECTOR-C Mervat E Primary Care Provider MD Riya Pitt Other Provider Spasic, PRINT LINE INSPECTOR-C Mervat E Primary Care Provider MD Riya Pitt Attending Provider Spasic, PRINT LINE INSPECTOR-C Mervat E Attending Provider [facility] Care Prov ider Spasic, PRINT LINE INSPECTOR-C Mervat E Referring Provider Spasic, PRINT LINE INSPECTOR-C Mervat E Primary Care Provider Spasic, PRINT LINE INSPECTOR-C Mervat E Referring Provider Spasic, PRINT LINE INSPECTOR-C Mervat E Primary Care Provider [phone] TYSON Dixon Attending Provider Spasic, PRINT LINE INSPECTOR-C Mervat E Primary Care Provider DO Jose M Landry II Attending Provider MD Johan Taylor Attending Provider [phone] BEE, ALEJANDRO Admitting Unavailable BEEJAJAIN Attending Unavailable SHELDON DE LEON Attending Unavailable RAIMUNDO MONTES Admitting Unavailable SONAL MÁRQUEZ JR Referring Unavailable BUNTING, MAYE RAY Primary Care Unavailable RIYA ARAMBULA Admitting Unavailable RIYA ARAMBULA Attending Unavailable BUNTING, MAYE RAY Primary Care Unavailable BEE, ALEJANDRO Admitting Unavailable BEE, ALEJANDRO Attending Unavailable DO Jose M Landry II Attending Provider Spasic, PRINT LINE INSPECTOR-C Mervat E Attending Provider [facility] Prov ider TYSON Dixon Attending Provider MD Johan Taylor Attending Provider NON STAFF Primary Care Provider Unavailabl e Spasic, PRINT LINE INSPECTOR-C Mervat E Primary Care Provider Spasic, PRINT LINE INSPECTOR-C Mervat E Referring Provider DO Jose M Landry II Attending Provider [phone] [facility] Prov ider Spasic, PRINT LINE INSPECTOR-C Mervat E Attending Provider Spasic, PRINT LINE INSPECTOR-C Mervat E Primary Care Provider Spasic, PRINT LINE INSPECTOR-C Mervat E Referring Provider MD Fawad Rocha Attending Provider [facility] Prov ider Spasic, PRINT LINE INSPECTOR-C Mervat E Attending Provider Spasic, PRINT LINE INSPECTOR-C Mervat E Primary Care Provider Spasic, PRINT LINE INSPECTOR-C Mervat E Referring Provider TYSON Dixon Attending Provider MD Johan Taylor Attending Provider NON STAFF Primary Care Provider Unavailabl e Spasic, PRINT LINE INSPECTOR-C Mervat E Attending Provider DO Jose M Landry II Attending Provider [phone] MD Fawad Rocha Attending Provider Spasic, PRINT LINE INSPECTOR-C Mervat E Primary Care Provider Spasic, PRINT LINE INSPECTOR-C Mervat E Referring Provider Unavailable Primary Care Provider Unavailabl e MD Johan Taylor Attending Provider [phone] Spasic, PRINT LINE INSPECTOR-C Mervat E Referring Provider Spasic, PRINT LINE INSPECTOR-C Mervat E Referring Provider [facility] Primary Care Provider [phone] MD Fawad Rocha Attending Provider Spasic, PRINT LINE INSPECTOR-C Mervat E Primary Care Provider [phone] MD Johan Taylor Attending Provider DO Jose M Landry II Attending Provider Spasic, PRINT LINE INSPECTOR-C Mervat E Referring Provider [facility] Primary Care Provider [phone] Spasic, PRINT LINE INSPECTOR-C Mervat E Attending Provider [facility] Primary Care Provider Spasic, PRINT LINE INSPECTOR-C Mervat E Referring Provider Spasic, PRINT LINE INSPECTOR-C Mervat E Primary Care Provider MD Fawad Rocha Attending Provider Spasic, PRINT LINE INSPECTOR-C Mervat E Referring Provider Spasic, PRINT LINE INSPECTOR-C Mervat E Primary Care Provider Spasic, PRINT LINE INSPECTOR-C Mervat E Referring Provider MD Fawad Rocha Attending Provider MD Olga Lidia Martin Attending Provider DO Jose M Landry II Attending Provider NO FAMILY, PHYSICIAN Primary Care Provider Unava ilable Spasic, PRINT LINE INSPECTOR-C Mervat E Referring Provider MD Master Mauricio Attending Provider DO Jose M Landry II Attending Provider [facility] Primary Care Provider [phone] Spasic, PRINT LINE INSPECTOR-C Mervat E Attending Provider MD Fawad Rocha Attending Provider MD Olga Lidia Martin Attending Provider NO FAMILY, PHYSICIAN Primary Care Provider Unava ilable Spasic, PRINT LINE INSPECTOR-C Mervat E Referring Provider DO Jose M Landry II Attending Provider MD Master Mauricio Attending Provider [phone] NO FAMILY, PHYSICIAN Primary Care Provider Unava MD Olga Lidia Pimentel Attending Provider MD Fawad Rocha Attending Provider [phone] NO FAMILY, PHYSICIAN Primary Care Provider Unava ilable MD Yisel Andrade Attending Provider MD Olga Lidia Martin Attending Provider Kiko Corbett Attending Unavailable Spasic, PRINT LINE INSPECTOR-C Mervat Hughes Primary Care Provider Spasic, PRINT LINE INSPECTOR-C Mervat Hughes Attending Provider ELBA Gayle Attending Provider NO FAMILY, PHYSICIAN Primary Care Provider Unava MD Fawad Lemos Attending Provider Katlin Castellanos PA-C Primary Care Provider Katlin Castellanos PA-C Attending Provider Mervin Siddiqi DO Emergency Provider [phone] Spasic PRINT LINE INSPECTOR-C, Mervat Hughes Primary Care Provider [phone] Nick Wayne MD Admit Provider Nick Wayne MD Attending Provider Julian Jones MD Attending Provider Olga Lidia Martin MD Other Provider Nathaniel Alonso DPM Other Provider Riya Pitt MD Other Provider Pedro Drake MD Emergency Provider Johan Taylor MD Attending Provider Spasic PRINT LINE INSPECTOR-C, Mervat E Primary Care Provider [phone] Olga Lidia Martin MD Attending Provider Daromar MD, Obaydah M Other Provider Sweetie HOLLOWAY, Riya Attending Provider Minnie Foote DO Emergency Provider Frisantos GHOSH, Riya Admit Provider Robynngcarlos DO, Riya Other Provider Lupe HOLLOWAY, Yisel Attending Provider Lupe HOLLOWAY, Yisel Other Provider Vidal DESAIM, Jaylin Other Provider [phone] Cesar HOLLOWAY, Jon Villalta Emergency Provider jA HOLLOWAY, Fawad Attending Provider [phone] Aj HOLLOWAY, Fawad Other Provider Aj HOLLOWAY, Fawad Admit Provider Jin RN, Niru Other Provider Unavailable Nabila RN, Inge Other Provider Unavailable Nilton RN, Mony Other Provider Unavailable Dieter RN, Theodora Other Provider Unavailable Rico RN, Jami Other Provider Unavailable Shayne RN, Edna Other Provider Unavailable Misha HOLLOWAY, Emelyn Other Provider Amy DO Hillkatherine Other Provider Subha HOLLOWAY, Jose Other Provider Shari , Chris Other Provider Thad Roach MD Other Provider Rosy Kan MD Other Provider [phone] Annel GHOSH, Riya Other Provider [phone] Hardik HOLLOWAY, Rohit Other Provider Unavailable Sara Pantoja APRN Other Provider Heidi HOLLOWAY, Audi Other Provider Mariano Martinez MD Other Provider Tom HOLLOWAY, Niranjan Other Provider Unavailable Dory HOLLOWAY, Deric Other Provider Agustin Avilez MD Other Provider Rozina HOLLOWAY, Anant Other Provider Zachariah PRINT LINE INSPECTOR-C, Elisabet Wiggins Other Provider Sorin Vaughn APRN Other Provider Unavailable Landon Grullon MD Other Provider Tutu HOLLOWAY, Balbir Other Provider Christen HOLLOWAY, Aric Other Provider Esvin HOLLOWAY, Yovani Other Provider Unavailable Kevin Steinberg MD Other Provider Unruly DOCecilia Other Provider Erik DO, Xavi Roy Other Provider Annika Kan APRN Other Provider Srinivasa DODeo Other Provider Makenzie Drake APRN Other Provider Carissa Huntley APRN Other Provider Francisco HOLLOWAY, Ct Other Provider Unavailable Ronald Espinal MD Other Provider Zamora DO, Zane Mendez Other Provider Gatito DOSabino Other Provider Christen HOLLOWAY, Jamari Stevens Other Provider Slick Lawrence MD Other Provider Suzanne Dave APRN Other Provider Unavailable Marty HOLLOWAY, Charito Other Provider Tone HOLLOWAY, Nick Other Provider Favio Augustine MD Other Provider Rohit Goldsmith MD Other Provider Nikolai Leonard MD Other Provider Elayne Robins APRN Other Provider Amilcar Mckeon APRN Other Provider Lata Chapa RN Other Provider Unavailable Johan Taylor MD Other Provider Spasiaura PRINT LINE INSPECTOR-C, Mervat Hughes Primary Care Provider Mario HOLLOWAY, Olga Lidia Attending Provider Mervin Siddiqi DO Emergency Provider [phone] Tone HOLLOWAY, Nick Admit Provider Unavailable Karen HOLLOWAY, Julian Glynn Attending Provider Olga Lidia Martin MD Other Provider Gavin ARREOLA, Nathaniel Other Provider Riya Pitt MD Other Provider Karen HOLLOWAY, Julian Glynn Other Provider Riya Pitt MD Attending Provider [phone] Pedro Drake MD Emergency Provider [phone] Minnie Foote DO Emergency Provider [phone] Riya Sampson DO Admit Provider Riya Sampson DO Other Provider Yisel Andrade MD Attending Provider [phone] Yisel Andrade MD Other Provider Vidal ARREOLA, Jaylin Other Provider Cesar HOLLOWAY, Jon Villalta Emergency Provider [phone] Claudia HOLLOWAY, Johan Attending Provider Fawad Rocha MD Attending Provider Fawad Rocha MD Other Provider [phone] Fawad Rocha MD Admit Provider Niru Abdi RN Other Provider Unavailable Nabila RN, Inge Other Provider Unavailable Nilton RN, Mony Other Provider Unavailable Dieter RN, Theodora Other Provider Unavailable Rico RN, Jami Other Provider Unavailable Shayne RN, Edna Other Provider Unavailable Emelyn Cabral MD Other Provider Allegra Reyes DO Other Provider Subha HOLLOWAY, Jose Other Provider Chris Mccarthy DO Other Provider Thad Roach MD Other Provider Lucius HOLLOWAY, Rosy Other Provider Riya Up DO Other Provider Hardik HOLLOWAY, Rohit Other Provider Unavailable Sara Pantoja APRN Other Provider Heidi HOLLOWAY, Audi Other Provider Mariano Martinez MD Other Provider Unavailable Tom HOLLOWAY, Niranjan Other Provider Unavailable Deric Connors MD Other Provider Raghav HOLLOWAY, Agustin Other Provider Rozina OHLLOWAY, Anant Other Provider Zachariah PRINT LINE INSPECTOR-C, Elisabet Wiggins Other Provider Roderick DEFENSE TRAVEL ADMINISTRATOR, Sorin Glynn Other Provider Unavailable Mitchel HOLLOWAY, Landon Hughes Other Provider Tutu HOLLOWAY, Balbir Other Provider Aric Velásquez MD Other Provider Unavailable Esvin HOLLOWAY, Yovani Other Provider Unavailable Kevin Steinberg MD Other Provider Unavailable Cecilia Tolliver DO Other Provider Xavi Valencia DO Other Provider Annika Kan APRN Other Provider Deo Bernabe DO Other Provider Makenzie Drake APRN Other Provider Carissa Huntley APRN Other Provider Ct Singh MD Other Provider Unavailable Ronald Espinal MD Other Provider Zane Zamora DO Other Provider Unavailable Gatito DO Yaamalia Other Provider Christen HOLLOWAY, Jamari Stevens Other Provider Slick Lawrence MD Other Provider Suzanne Dave APRN Other Provider Unavailable Marty HOLLOWAY, Charito Other Provider Tone HOLLOWAY, Nick Other Provider Unavailable Favio Augustine MD Other Provider Rohit Goldsmith MD Other Provider [phone] Nikolai Leonard MD Other Provider Shimon MEHTA, Elayne Pedraza Other Provider Amilcar Mckeon APRN Other Provider [phone] Sammi LAZO, Lata Other Provider Unavailable Johan Taylor MD Other Provider Spasic PRINT LINE INSPECTOR-C, Mervat E Primary Care Provider [phone] Olga Lidia Martin MD Attending Provider Cecilia Tolliver DO Other Provider Unavailable NON STAFF Primary Care Provider Unavaildilshad Wayne MD, Nick Admit Provider Unavailable Olga Lidia Martin MD Attending Provider Johan Taylor MD Attending Provider Mariano Martinez MD Other Provider Unavailable Aric Velásquez MD Other Provider Unavailable Kevin Steinberg MD Other Provider Unavailable Cecilia Tolliver DO Other Provider Unavailable Noah DOJesúsle T Other Provider Unavailable Nick Wayne MD Other Provider Unavailable NON STAFF Primary Care Provider Unavailabl e Spasic PRINT LINE INSPECTOR-C, Mervat E Primary Care Provider [phone] Riya Up DO Other Provider Unavailab Riya Pimentel DO Other Provider Julian Jones MD Other Provider Yisel Andrade MD Attending Provider NON STAFF Primary Care Provider UnavailOlga Lidia Cage MD Attending Provider Kendall PRINT LINE INSPECTOR-C, Jailene R Attending Provider [facility] PRINT LINE INSPECTOR-CMervat Primary Care Provider [phone] Fawad Rocha MD Attending Provider Fawad Rocha MD Other Provider [facility] PRINT LINE INSPECTOR-CMervat Primary Care Provider Fawad Rocha MD Attending Provider [phone] Johan Taylor MD Attending Provider Fawad Rocha MD Other Provider [facility] PRINT LINE INSPECTOR-C, Mervat Hughes Attending Provider Allergies Allergy ClassificationReported Allergen(s)Allergy TypeDate of OnsetReaction(s) Facility (20 sources)Codeine; Translations: [codeine]Drug [id number] (qualifier value), [facility] HospitalComment on above: It just doesn't feel right (20 sources)Lisinopril; Translations: [lisinopril]Drug [id number] anaphylaxis, Swelling (finding), [facility] ([facility])Amino AcidsDrug AllergyThe [facility] (1 source)CodeineDrug AllergyThe [facility] (1 source)CodeineDrug [id number] County Community Hospital [facility]ository (1 source)LisinoprilDrug [id number] County Community Hospital Repository Medications Current Medications MedicationDrug Class(es)DatesSig (Normalized)Sig (Original)Alpha Lipoic 100 mg oral tablet (5 sources)Start: 38-21-8652lkdo 1 mg by mouth twice dailyAlpha Lipoic 100 mg oral tablet mg tab(s), Oral, BID, Refills(s) 0 Start Date: 06/07/22 Status: Ordere dAlpha Lipoic Acid 200 MG (11 sources)take 1 capsule by mouth once dailyAlpha Lipoic Acid 200 MG 1 capsule Orally Once a day ActiveAlpha Lipoic Acid 200 MG as directed Orally daily ActiveAlpha Lipoic Acid 300 MG (5 sources)Alpha Lipoic Acid 300 MG Orally bid Activeascorbic acid 500 mg oral tablet (20 sources)Vitamin CStart: 72-69-6629gbng 1 tablet by mouth once dailyStart: 05-18-2021 End: 15-45-1777dlkg 1 tablet by mouth once dailyAscorbic Acid (Vitamin C) 500 mg Tablet Discontinued 500 MG PO Daily May 18, 2021 1:00am October 21, 2022 12:42pmtake 1 capsule by mouth once dailyVitamin C 500 MG Oral Capsule TAKE 1 CAPSULE Daily Quantity: 0 Refills: 0 Ordered: 21-Feb-2022 DO ActiveAspir 81 (2 sources)Start: 89-18-0712orgd 1 mg by mouth once dailyAspir 81 mg, Oral, Daily, Refills(s) 0 Start Date: 11/19/18 Status: Orderedatorvastatin 10 mg oral tablet (20 sources)HMG-CoA Reductase InhibitorStart: 60-65-7131ggoi 1 tablet by mouth at bedtimeStart: 12-25-2016 End: 53-81-4830twjl 1 tablet by mouth once dailyAtorvastatin 40 mg tablet Discontinued 40 MG PO Daily December 25, 2016 12:00am May 25, 2020 10:40amComment on above:Take 40 mg by mouth once daily.Boost Glucose Control - (3 sources)Boost Glucose Control - as directed Orally TWICE A DAY Activecalcium acetate 667 mg oral capsule (19 sources)Start: 83-50-2744nkrf 1 capsule by mouth three times daily at mealtimeStart: 56-80-2614yimn 2 tablets by mouth every eight hoursCepacol Sore Throat 3 MG (8 sources)Cepacol Sore Throat 3 MG Mouth/Throat prn Activeclopidogrel 75 mg oral tablet (20 sources)P2Y12 Platelet InhibitorStart: 75-68-1496less 1 tablet by mouth once dailyStart: 11-19-2018 End: 31-41-1010jatv 1 tablet by mouth once dailyClopidogrel (Plavix) 75 mg Tablet Discontinued 75 MG PO Daily October 13, 2019 12:00am March 10:35amPlavix ActiveComment on above:Take 75 mg by mouth once daily.Take 1 tablet by mouth once daily.Cymbalta 60 mg Cap-DR (6 sources)Start: 54-20-3755vzxw 1 capsule by mouth once dailyCymbalta 60 mg Cap-DR 60 mg, Oral, Daily Start Date: 11/19/18 Status: Ordereddocusate sodium 100 mg oral capsule (13 sources)Start: 76-54-8164rxzw 1 capsule by mouth once daily as needed for constipationDULoxetine 60 mg delayed release oral capsule (20 sources)Serotonin and Norepinephrine Reuptake InhibitorStart: 63-36-5240sueg 1 capsule by mouth once daily at bedtimeStart: 60-76-8663ocyvdnhgfu Oral, Refills(s) 0 Start Date: 06/09/20 Status: OrderedStart: 03-21-2020 End: 22-00-0872rvmq 3 capsules by mouth twice dailyDuloxetine 20 mg Capsule,Delayed Release(Dr/Ec) Discontinued 60 MG PO Twice daily March 21, 2020 1:00am September 10, 2022 4:38pmStart: 03-21-2020 End: 99-19-6872ztyb 60 mg by mouth twice dailyDuloxetine Discontinued 60 MG PO Twice daily March 21, 2020 1:00am September 10, 2022 4:38pmStart: 11-19-2018 End: 82-21-6834rlpm 1 capsule by mouth once dailyDuloxetine (Cymbalta) 60 mg Capsule,Delayed Release(Dr/Ec) Discontinued 60 MG PO Daily October 13, 2019 12:00am March 21, 2020 10:05amStart: 12-25-2016 End: 84-03-9804Gvczkwytcm 20 mg capsule,delayed release(DR/EC) Discontinued December 25, 2016 12:00am October 10:01amStart: 12-25-2016 End: 18-11-8714acua 3 capsules by mouth every twelve hoursDULoxetine HCl 60 MG 3 CAPSULES Orally Twice a day Activetake 3 capsules by mouth every twelve hours DULoxetine HCl 60 MG as directed Orally Twice a day ActiveDULoxetine HCl Active Comment on above:Take 60 mg by mouth once daily.Ergocalciferol (12 sources)Provitamin D2 CompoundStart: 56-68-7140edrj 97863 [IU] by mouth every weekErgocalciferol (Vitamin D2) Active 89315 UNIT PO every week April 02, 2023 1:00amStart: 04-89-7783hypn 83114 [IU] by mouth every week Ergocalciferol (Vitamin D2) Active 11514 UNIT PO every week April 02, 2023 12:00amErgocalciferol (Vitamin D2) 50,000 unit Tablet (14 sources)Start: 82-34-4679ifvy 1 tablet by mouth every weekErgocalciferol (Vitamin D2) 50,000 unit Tablet Active 70663 UNIT PO every week April 02, 2023 1:00am Complies with drug therapyStart: 25-79-4805hnma 1 tablet by mouth every weekStart: 70-20-1865vief 1 tablet by mouth every weekErgocalciferol (Vitamin D2) 50,000 unit Tablet Active 01882 UNIT PO every week April 02, 2023 1:00amertapenem 1000 mg injection (3 sources)Penem AntibacterialErtapenem Sodium 1 GM as directed Injection Active ferrous sulfate 325 mg oral tablet (20 sources)Start: 00-15-3355kqfn 1 tablet by mouth once dailyStart: 05-18-2021 End: 20-24-3791iryo 1 tablet by mouth onceFerrous Sulfate 324 mg (65 mg iron) tablet,delayed release (DR/EC) Discontinued 325 MG PO every Friday, Friday, and Tuesday May 18, 2021 1:34pm October 21, 2022 12:42pmStart: 05-18-2021 End: 44-72-6704avjg 1 tablet by mouth once dailyFerrous Sulfate 325 mg (65 mg iron) Tablet Discontinued 325 MG PO Daily May 18, 2021 1:00am November 14, 2021 1:21pmStart: 05-30-2020 End: 60-82-5020Yrovwmt Sulfate 324 mg (65 mg iron) Tablet,Delayed Release (Dr/Ec) Discontinued 324 MG PO Every 48 hours 0 0 May 30, 2020 1:00am May 18, 2021 1:34pmStart: 03-21-2020 End: 51-96-5952owol 1 tablet by mouth once dailyFerrous Sulfate 325 mg (65 mg iron) Tablet Discontinued 325 MG PO Daily March 21, 2020 1:00am May 25, 2020 1:41pmStart: 76-92-1915srjv 1 tablet by mouth three times daily ferrous sulfate 325 mg Tab 325 mg = 1 tab(s), Oral, TID Start Date: 11/19/18 Status: OrderedStart: 12-25-2016 End: 50-82-7369uvfw 1 tablet by mouth once dailyFerrous Sulfate 325 mg (65 mg iron) Tablet Discontinued 325 MG PO Daily December 25, 2016 12:00am January 26, 2020 9:52amtake 1 tablet by mouth once dailyFerrous Sulfate 325 (65 Fe) MG 1 tablet Orally ONCE A DAY ActiveComment on above:Take 325 mg by mouth daily with breakfast.folic acid 1 mg oral tablet (20 sources)Start: 08-38-9991dlgb 1 tablet by mouth once dailyComment on above: Take 1 mg by mouth once daily.gabapentin 300 mg oral capsule (20 sources)Anti-epileptic AgentStart: 79-99-6320molo 1 capsule by mouth at bedtimeStart: 73-62-0416Hylbs: 11-21-2021 End: 25-79-0159yxvj 1 tablet by mouth once daily at bedtimeGabapentin 600 mg tablet Discontinued 600 MG PO Daily at bedtime April 16, 2023 9:35am September 11, 2024 2:47pmStart: 67-04-3466neiq 600 mg by mouth once daily in the evening Gabapentin Active 600 MG PO Every evening 0 November 21, 2021 12:00amStart: 12-25-2016 End: 17-97-2182xyxj 1 tablet by mouth twice dailyGabapentin 800 mg tablet Discontinued 800 MG PO Twice daily December 25, 2016 12:00am March 21, 2020 10:06amStart: 12-25-2016 End: 51-14-8945uyge 1 tablet by mouth three times dailyGabapentin (Neurontin) 800 mg Tablet Discontinued 800 MG PO Three times daily January 26, 2020 12: 00am November 21, 2021 7:18pmtake 1 tablet by mouth every twenty-four hourstake 1 tablet by mouth three times dailyGABAPENTIN (NEURONTIN ORAL) Take 1 tablet by mouth three times daily. 0 Suspendedtake 1 tablet by mouth three times daily GABAPENTIN (NEURONTIN ORAL) Take 1 tablet by mouth three times daily. 0 Active take 1 tablet by mouth three times dailyNeurontin 800 1 tablet Orally Three times a day ActiveComment on above:Take 1 tablet by mouth three times daily. Insulin Aspart U-100 (Novolog U-100 Insulin Aspart) 100 unit/mL Solution (20 sources)Start: 00-15-1375Ircgfyb Aspart U-100 (Novolog U-100 Insulin Aspart) 100 unit/mL Solution Active 0 UNIT SUBCUT Before meals and at bedtime March 21, 2020 1:00am 151-200 0 units 201-250 2 units 251-300 4units 301-350 6 units 351-400 8 units 401-450 10 units over 400 call doctor Please contact the information source for Protocol details.Start: 19-14-7034Vhwlxkg Aspart U-100 (Novolog U-100 Insulin Aspart) 100 unit/mL Solution Active 0 UNIT SUBCUT Before meals and at bedtime March 21, 2020 1:00am 151-200 0 units 201-250 2 units 251-300 4units 301-350 6 units 351-400 8 units 401-450 10 units over 400 call doctorStart: 82-57-1046Etzmkig Aspart U-100 (Novolog U-100 Insulin Aspart) 100 unit/mL Solution Active 0 unit SUBCUT Before meals and at bedtime March 21, 2020 12:00am 151-200 0 units 201-250 2 units 251-300 4units 301-350 6 units 351-400 8 units 401-450 10 units over 400 call doctorStart: 42-36-7862Rfxipfz Aspart U-100 (Novolog U-100 Insulin Aspart) 100 unit/mL Solution Active 0 unit SUBCUT Before meals and at bedtime March 21, 2020 12:00am 151-200 2 units 201-250 4 units 251-300 6 units 301-350 8 units 351-400 10 units 401-450 12 units 451-500 14 units over 500 call doctorStart: 03-21-2020 End: 15-84-5450pzsmhj 6 [IU] by subcutaneous injection once dailyInsulin Aspart U-100 (Novolog U-100 Insulin Aspart) 100 unit/mL Solution Discontinued 6 UNIT SUBCUTDaily March 21, 2020 12:00am May 25, 2020 12:42pm with supper Start: 47-01-2969Pemkvzz Aspart U-100 (Novolog U-100 Insulin Aspart) 100 unit/mL Solution Active 0 unit SUBCUT Before meals and at bedtime March 21, 2020 1:00am 151-200 2 units 201-250 4 units 251-300 6 units 301-350 8 units 351-400 10 units 401-450 12 units 451-500 14 units over 500 call doctorStart: 03-21-2020 End: 19-80-9613spjbfe 6 [IU] by subcutaneous injection once dailyInsulin Aspart U-100 (Novolog U-100 Insulin Aspart) 100 unit/mL Solution Discontinued 6 UNIT SUBCUTDaily March 21, 2020 1:00am May 25, 2020 1:42pm with supper insulin aspart, human 100 unt/ml injectable solution (20 sources)Insulin AnalogStart: 03-21-2020 End: 45-80-8171kcmnuz 6 [IU] by subcutaneous injection once dailyInsulin Aspart U-100 (Novolog U-100 Insulin Aspart) 100 unit/mL Solution Discontinued 6 UNIT SUBCUTDaily March 21, 2020 1:00am May 25, 2020 1:42pm with supper Start: 47-15-2805Hrdno: 44-48-0035HzrdHOV 100 units/mL injectable solution SubCutaneous, TIDAC, Refills(s) 0 Start Date: 11/19/18 Status: OrderedStart: 12-25-2016 End: 47-78-0281ecyemz 1 dose by subcutaneous injection at bedtimeInsulin Aspart U-100 100 unit/mL solution Discontinued 25 sliding scale dose SUBCUT Before meals and at bedtime December 25, 2016 12:00am January 19, 2020 8:30am Start: 12-25-2016 End: 35-88-4041nydpft 1 dose by subcutaneous injection at bedtimeInsulin Aspart U-100 Discontinued 25 sliding scale dose SUBCUT Before meals and at bedtime December 24, 2016 11:00pm January 19, 2020 7:30amStart: 12-25-2016 End: 60-53-7869bkovlb 1 dose by subcutaneous injection at bedtimeInsulin Aspart U-100 Discontinued 25 sliding scale dose SUBCUT Before meals and at bedtime December 25, 2016 12:00am January 19, 2020 8:30amNovoLOG 100 UNIT/ML as directed Subcutaneous SLIDING SCALE NEEDED ActiveNovoLOG FlexPen 100 UNIT/ML Subcutaneous Solution Pen-injector sliding scale Quantity: 0 Refills: 0Ordered: 21-Feb-2022 DO Activeinject 6 [IU] by subcutaneous injection onceNovoLOG 100 UNIT/ML 6 units Subcutaneous q supper Activeinject 4 [IU] by subcutaneous injection once daily at bedtimeNovoLOG 100 UNIT/ML 4 units Subcutaneous QHS ActiveComment on above:Inject subcutaneously. As directed3 ml insulin degludec 200 unt/ml pen injector (11 sources)Insulin AnalogStart: 08-00-9896Moroitx Degludec (Tresiba Flextouch U-200) 200 unit/mL (3 mL) insulin pen (2 sources)Start: 73-28-9191Zbmgqbw Degludec (Tresiba Flextouch U-200) 200 unit/mL (3 mL) insulin pen Active 45 UNIT SUBCUT Daily September 11, 2024 12:00am Insulin Detemir U-100 (Levemir Flextouch U100 Insulin) 100 unit/mL (3 mL) insulin pen (14 sources)Start: 69-11-3643Yfeukzs Detemir U-100 (Levemir Flextouch U100 Insulin) 100 unit/mL (3 mL) insulin pen Active 42 UNIT SUBCUT Every morning May 18, 2021 1:00amStart: 36-19-0998Nzhxggw Detemir U-100 (Levemir Flextouch U100 Insulin) 100 unit/mL (3 mL) insulin pen Active 42 UNIT SUBCUT Every morning May 18, 2021 12:00amStart: 62-20-2604Hmqnutq Detemir U-100 (Levemir Flextouch U100 Insulin) 100 unit/mL (3 mL) insulin pen Active 42 UNIT SUBCUT Daily May 18, 2021 12:00amLac-Hydrin Twelve (3 sources)Lac-Hydrin Twelve Activeammonium lactate 120 mg/ml topical lotion (20 sources)Start: 08-07-6985Sdoby: 05-25-2020 End: 46-66-7167Ajtkbqrt Lactate 12 % Cream Discontinued 1 APPLIC TOPICAL Every shift May 25, 2020 1:00am October 21, 2022 12:42pm apply to intact areas of BLE every day [facility] satStart: 05-25-2020 End: 44-37-9228twkmxlec lactate Top 12% Crm Topical, BID, Refill(s) 0 Start Date: 06/07/22 Status: OrderedAmmonium Lactate 12 % 1 application Externally Twice a day Activeammonium lactate (LAC-HYDRIN) 12 % cream Apply to affected area as needed. 0 ActiveComment on above:Apply to affected area as needed.Levemir FlexTouch 100 UNIT/ML (6 sources)Levemir FlexTouch 100 UNIT/ML as directed Subcutaneous 42 units in the am Activeloperamide hydrochloride 2 mg oral capsule (11 sources)Opioid AgonistStart: 44-80-0592eebs 4 capsules by mouth every twenty-four hoursmelatonin 5 mg oral tablet (20 sources)Start: 66-22-9590vomv 1 tablet by mouth at bedtime as neededStart: 64-47-7470norofjxlx 5 mg, Once a day (at bedtime), Refills(s) 0 Start Date: 06/09/20 Status: OrderedStart: 78-42-1955uktqtflon Once a day (at bedtime), Refills(s) 0 Start Date: 06/09/20 Status: Orderedtake 1 capsule by mouth at bedtimeMelatonin 5 MG Oral Capsule TAKE 1 CAPSULE Bedtime Quantity: 0 Refills: 0 Ordered: 21-Feb-2022 DO Activemidodrine hydrochloride 5 mg oral tablet (13 sources)alpha-Adrenergic AgonistStart: 52-76-8904fjzh 1 tablet by mouth once daily at bedtimeMultivitamins - (8 sources)Multivitamins - Orally Activepolyethylene glycol 3350 14281 mg powder for oral solution (20 sources)Osmotic LaxativeStart: 09-30-7068Ehzbr: 36-23-5203jbud 1 g by mouth once dailypolyethylene glycol 3350 17 gram packet gm, Oral, Daily, Refills(s) 0 Start Date: 06/07/22 Status: OrderedStart: 97-91-5627Xkxmqlghcqrc Glycol 3350 (Miralax) 17 gram Powder In Packet Active 17 GM PO Daily 0 November 21, 2021 12:00amPolyethylene Glycol 3350 17 GM/SCOOP (3 sources)Polyethylene Glycol 3350 17 GM/SCOOP 1 scoop mixed with 8 ounces of fluid Orally Once a day ActiveProbiotic - (8 sources)Probiotic - Orally ActiveSaccharomyces boulardii lyo (3 sources)Trulance 3mg (2 sources)Start: 59-67-3642aelj 1 tablet by mouth once dailyTrulance 3mg 1 tablet po once a day for 1 month Dec, Kgqbft685 ml vancomycin 5 mg/ml injection (3 sources)Glycopeptide AntibacterialVancomycin HCl in Dextrose 1-5 GM/200ML as directed done on 01/02/2022 ActiveVancomycin HCl 1 GM as directed Intravenous ActiveVitamin D3 2000 UNIT (8 sources)take 1 capsule by mouth once dailytake 1 capsule by mouth once daily Vitamin D3 2000 UNIT 1 capsule Orally Once a day Active (20 sources)Start: 43-09-0639Ymszu: 09-12-2022 End: 89-65-2172Vzhqb: 49-65-1291Dnjsq: 11-21-2021 End: 89-01-1719Bqczl: 56-37-4440Pwlqm: 05-18-2021 End: 85-39-1583Szqvg: 05-30-2020 End: 05-36-0263Vyfok: 95-18-5628Nxghv: 03-21-2020 End: 79-60-3109Efaku: 03-21-2020 End: 89-58-2303Vvivy: 03-21-2020 End: 05-09-6046Domfr: 12-25-2016 End: 90-48-7893Nhfcb: 12-25-2016 End: 47-17-6561Ocdoz: 12-25-2016 End: 85-54-9192Gtqji: 12-25-2016 End: 12-22-2019 Completed/Discontinued Medications MedicationDrug Class(es)DatesSig (Normalized)Sig (Original)acarbose 100 mg oral tablet (20 sources)alpha-Glucosidase InhibitorStart: 05-25-2020 End: 67-65-4300gwql 1 tablet by mouth three times dailyAcarbose 100 mg Tablet Discontinued 100 MG PO Three times daily May 18, 2021 1:00am September 11, 2024 2:45pmStart: 10-13-2019 End: 58-42-4271kjzz 1 tablet by mouth three times dailyAcarbose 100 mg Tablet Discontinued 100 MG PO Three times daily October 13, 2019 12:00am March 21, 2020 10:34amComment on above:Take 100 mg by mouth three times daily with meals. acetaminophen 325 mg oral tablet (20 sources)Start: 03-21-2020 End: 61-49-0043kafn 2 tablets by mouth every four hours as needed for pain Acetaminophen (Tylenol) 325 mg Tablet Discontinued 650 MG PO Q4H as needed for Pain March 21, 2020 1:00am October 21, 2022 12:42pmStart: 83-30-2516vpuq 1 tablet by mouth every four hoursTylenol 325 mg Tab 325 mg = 1 tab(s), Oral, q4hr Start Date: 11/19/18 Status: Orderedtake 2 tablets by mouth every six hours as neededacetaminophen (TYLENOL) 325 mg tablet Take 650 mg by mouth every 6 hours as needed. 0 ActiveComment on above:Take 650 mg by mouth every 6 hours as needed.aluminum hydroxide 40 mg/ml / magnesium hydroxide 40 mg/ml / simethicone 4 mg/ml oral suspension (7 sources)aluminum-magnesium hydroxide-simethicone (MAALOX,MYLANTA,MAG-AL PLUS) 200-200-20 mg/5 mL suspensionTake by mouth every 6 hours as needed. 0 Active Comment on above:Take by mouth every 6 hours as needed.amitriptyline hydrochloride 10 mg oral tablet (20 sources)Tricyclic AntidepressantStart: 11-19-2018 End: 43-39-4450jxdl 1 tablet by mouth at bedtimeAmitriptyline 10 mg tablet Discontinued 10 MG PO Bedtime May 25, 2020 1:00am July 17, 2022 7:26am Start: 12-25-2016 End: 07-77-2781Avodwxikrmqkt 50 mg tablet Discontinued 25 MG PO Daily December 25, 2016 12:00am May 25, 2020 10:40amStart: 12-25-2016 End: 68-95-9722lpzd 25 mg by mouth once dailyAmitriptyline Discontinued 25 MG PO Daily December 25, 2016 12:00am May 25, 2020 10:40amtake 10 mg by mouth once daily at bedtimeamitriptyline (ELAVIL) 25 mg tablet Take 10 mg by mouth daily at bedtime. 0 Activetake 1 tablet by mouth once daily at bedtime amitriptyline (ELAVIL) 25 mg tablet Take 25 mg by mouth daily at bedtime. 0 Activetake 1 tablet by mouth every twenty-four hoursAmitriptyline HCl 10 MG 1 tablet at bedtime Orally Once a day ActiveComment on above:Take 25 mg by mouth daily at bedtime.Take 10 mg by mouth daily at bedtime.amoxicillin 500 mg oral capsule (7 sources)Penicillin-class AntibacterialStart: 35-63-8960kcln 1 capsule by mouth every eight hoursamoxicillin (POLYMOX, AMOXIL) 500 mg capsule take 1 capsule by mouth every 8 hours for 7 days 0 07/02/2018 ActiveComment on above: take 1 capsule by mouth every 8 hours for 7 daysamoxicillin 875 mg / clavulanate 125 mg oral tablet (20 sources)Penicillin-class AntibacterialStart: 04-04-2020 End: 05-57-9559wxra 1 tablet by mouth twice dailyAmoxicillin-Pot Clavulanate (Augmentin) 875-125 mg tablet Discontinued 1 TAB PO Twice daily 20 10 0December 2019 1:00am May 03, 2020 10:32amStart: 04-04-2020 End: 08-49-5230Hgpjr: 02-14-2020 End: 56-92-2311eevo 1 tablet by mouth twice dailyAmoxicillin-Pot Clavulanate (Augmentin) 875-125 mg tablet Discontinued 1 TAB PO Twice daily 20 10 0Nov2019 1:00am March 15, 2020 10:52amStart: 02-14-2020 End: 71-01-4501Qmlzo: 12-25-2016 End: 06-55-1802Uzmxdonbsgb-Pot Clavulanate (Augmentin) 875-125 mg Tablet Discontinued December 25, 2016 12:00amJuly 2019 9:55amAscorbic Acid / Bioflavonoids (6 sources)Vitamin Cascorbic acid-bioflavonoids 500-500 mg cap Take by mouth once daily. 0 Suspendedascorbic acid-bioflavonoids 500-500 mg cap Take by mouth once daily. 0 ActiveComment on above:Take by mouth once daily.aspirin 81 mg chewable tablet (20 sources)Platelet Aggregation Inhibitor, Nonsteroidal Anti-inflammatory Drug Start: 12-25-2016 End: 42-91-1148afyf 1 tablet by mouth once dailyAspirin 81 mg Tablet,Chewable Discontinued 81 MG PO Daily December 25, 2016 12:00am May 25, 2020 1:39pmtake 1 tablet by mouth once dailyaspirin, enteric coated (ASPIRIN, ENTERIC COATED) 81 mg EC tablet Take 81 mg by mouth once daily. 0ActiveComment on above:Take 81 mg by mouth once daily.benzocaine 7.5 mg / dextromethorphan hydrobromide 5 mg oral lozenge (20 sources)Uncompetitive Q-ozfxte-W-aspartate Receptor Antagonist, Sigma-1 Agonist, Standardized Chemical AllergenStart: 03-21-2020 End: 59-67-3182lycf 5-7.5 mg by mouth every four hours as needed Dextromethorphan-Benzocaine (Cepacol Sore Throat-Cough) 5-7.5 mg Lozenge Discontinued 1 LOZENGE PO Q4H as needed for Sore Throat March 21, 2020 1:00am May 25, 2020 1:41pmStart: 03-21-2020 End: 34-76-1577tyfdthpbb 10 mg rectal suppository (7 sources)Stimulant Laxativetake 10 mg rectal route once daily as needed bisacodyl (DULCOLAX) 10 mg supp 10 mg by RECTAL route once daily as needed. 0 ActiveComment on above:10 mg by RECTAL route once daily as needed.Calcium Carbonate / vitamin D3 (7 sources)CALCIUM CARBONATE/VITAMIN D3 (VITAMIN D-3 ORAL) Take by mouth. 0 SuspendedCALCIUM CARBONATE/VITAMIN D3 (VITAMIN D-3 ORAL) Take by mouth. 0 Active Comment on above:Take by mouth.cefditoren pivoxil 400 mg oral tablet (20 sources)Cephalosporin AntibacterialStart: 05-30-2020 End: 22-44-8177gfvz 1 tablet by mouth once daily at mealtimeCefditoren Pivoxil (Spectracef) 400 mg tablet Discontinued 200 MG PO Daily 4 7 0 May 30, 2020 1:00am June 26, 2020 3:41pm must administer with a meal/foodcephalexin 500 mg oral capsule (20 sources)Cephalosporin AntibacterialStart: 08-27-2022 End: 76-68-7713odxp 1 capsule by mouth every six hoursCephalexin 500 mg capsule Discontinued 500 MG PO Q6H 28 7 0 August 27, 2022 12:00am September 12, 2022 2:32pm Start: 09-16-2020 End: 39-99-1061bwty 2 capsules by mouth every twelve hoursCephalexin 500 mg Capsule Discontinued 1000 MG PO Q12H 40 10 0 September 16, 2020 12:00am May 18, 2021 1:34pmStart: 09-16-2020 End: 71-52-5720Lhihu: 09-16-2020 End: 54-73-5766iasv 1000 mg by mouth every twelve hoursCephalexin Discontinued 1000 MG PO Q12H 40 10 September 16, 2020 12:00am May 18, 2021 1:34pmStart: 05-03-2020 End: 26-85-4079gjpc 1 capsule by mouth three times dailyCephalexin (Keflex) 500 mg capsule Discontinued 500 MG PO Three times daily 30 10 May 03, 2020 1:00am May 10, 2020 10:59amStart: 05-03-2020 End: 03-73-6698Qxpea: 03-15-2020 End: 94-07-4181zmti 1 capsule by mouth every eight hoursCephalexin (Keflex) 500 mg capsule Discontinued 500 MG PO Q8H 42 14 0 March 15, 2020 1:00am March 21, 2020 10:34amStart: 03-15-2020 End: 50-67-0742ojojcjtbjuurkpn 0.05 mg oral capsule (20 sources)Vitamin DStart: 12-25-2016 End: 55-86-3048ikur 1 capsule by mouth once dailyCholecalciferol (Vitamin D3) (Vitamin D3) 2,000 unit Capsule Discontinued 2000 UNIT PO Daily December 25, 2016 12:00am May 25, 2020 1:40pmclindamycin 300 mg oral capsule (20 sources)Lincosamide AntibacterialStart: 05-03-2020 End: 21-46-0731gqml 1 capsule by mouth three times dailyClindamycin Hcl 300 mg capsule Discontinued 300 MG PO Three times daily 30 10 May 03, 2020 1 :00am May 10, 2020 10:59amStart: 03-15-2020 End: 15-20-9256xfkl 1 capsule by mouth every eight hoursClindamycin Hcl 300 mg capsule Discontinued 300 MG PO Q8H 42 14 0 March 15, 2020 1:00am March 21, 2020 10:35amStart: 03-15-2020 End: 37-24-5696Monzj: 01-28-2020 End: 32-00-6961zrtp 1 capsule by mouth four times dailyClindamycin Hcl 300 mg capsule Discontinued 300 MG PO Four times daily January 28, 2020 12:00am No vember 2019 2:47pmStart: 01-28-2020 End: 39-97-6322Ftozr: 01-19-2020 End: 71-94-9454Bkefvinfuon Phosphate 1 % gel Discontinued 1 APPLIC TOPICAL Once 60 2 January 19, 2020 12:00am January 28, 2020 10:11am WITH DRESSING CHANGES Start: 01-19-2020 End: 26-61-8900Neuji: 01-19-2020 End: 31-31-2613Meetljiypyb Phosphate Discontinued 1 APPLIC TOPICAL Once 60 January 19, 2020 12:00am January 28, 2020 10:11amcloNIDine hydrochloride 0.1 mg oral tablet (20 sources)Central alpha-2 Adrenergic AgonistStart: 04-02-2023 End: 49-22-3670tacc 1 tablet by mouth twice dailyClonidine Hcl 0.1 mg tablet Discontinued 0.1 MG PO Twice daily April 02, 2023 1:00am September 2:44pmdoxycycline hyclate 100 mg oral tablet (20 sources)Tetracycline-class DrugStart: 05-25-2020 End: 77-71-7072rjha 1 tablet by mouth once dailyDoxycycline Hyclate 100 mg tablet Discontinued 100 MG PO Daily May 25, 2020 1:00am May 30, 2020 1:35pmStart: 15-27-4948fzdegsexhkr hyclate (VIBRAMYCIN) 100 mg capsule empagliflozin 10 mg oral tablet (20 sources)Sodium-Glucose Cotransporter 2 InhibitorStart: 05-25-2020 End: 77-75-1270ldwn 1 tablet by mouth once dailyEmpagliflozin 10 mg Tablet Discontinued 10 MG PO Daily May 25, 2020 1:00am May 30, 2020 1:35pmfurosemide 40 mg oral tablet (20 sources)Loop DiureticStart: 11-21-2021 End: 01-65-4047ekur 1 tablet by mouth twice dailyFurosemide 40 mg tablet Discontinued 40 MG PO Twice daily April 16, 2023 9:35am September 14, 2024 1:10pmStart: 93-53-6418fixl 1 mg by mouth once dailyfurosemide 40 mg Tab mg tab(s), Oral, Daily, Refills(s) 0 Start Date: 3/3/23 Status: OrderedStart: 95-18-9997ucln 40 mg by mouth twice dailyFurosemide Active 40 MG PO BID@0800,1600 0 November 21, 2021 12:00amStart: 12-25-2016 End: 54-51-0942zdlm 1 tablet by mouth once dailyFurosemide 40 mg tablet Discontinued 40 MG PO Daily December 25, 2016 12:00am May 25, 2020 1:42pmStart: 12-25-2016 End: 02-13-8462Opulvjd on above:Take 40 mg by mouth twice daily.sodium hypochlorite 2.5 mg/ml topical solution (20 sources)Start: 11-14-2021 End: 52-08-5289Jiknhl Hypochlorite (Dakin's Solution) 0.25 % Solution Discontinued 1 IRRIG TOPICAL Twice daily November 14, 2021 12:00am January 11, 2022 4:06pmStart: 05-25-2020 End: 19-83-7935Jqxduk Hypochlorite 0.25 % Solution Discontinued 1 APPLIC TOPICAL 3 Times a week May 25, 2020 1:00am September 16, 2020 5:24pmStart: 05-25-2020 End: 85-35-1031Pvnfk: 01-19-2020 End: 06-91-0498Wwleux Hypochlorite (Dakin's Solution) 0.25 % solution Discontinued 1 APPLIC TOPICAL Daily 473 2 March 15, 2020 1:00am March 21, 2020 10:35amStart: 01-19-2020 End: 15-82-0047Qyecvmv Aspart U-100 100 unit/mL solution (6 sources)Start: 12-25-2016 End: 95-74-2467ibknyc 1 dose by subcutaneous injection at bedtimeInsulin Aspart U-100 100 unit/mL solution Discontinued 25 sliding scale dose SUBCUT Before meals and at bedtime December 25, 2016 12:00am January 19, 2020 8:30am3 ml insulin detemir 100 unt/ml pen injector (20 sources)Insulin AnalogStart: 05-25-2020 End: 96-11-3863owsilr 40 [IU] by subcutaneous injection once dailyInsulin Detemir U-100 100 unit/mL (3 mL) Insulin Pen Discontinued 40 UNIT SUBCUT Daily May 25, 2020 1:00am May 18, 2021 1:27pmStart: 05-25-2020 End: 29-33-4631Unfqwte Detemir U-100 (Levemir Flextouch U100 Insulin) 100 unit/mL (3 mL) insulin pen Discontinued 42 UNIT SUBCUT Every morning May 18, 2021 1:00am September 11, 2024 2:49pmStart: 57-49-3842Uvsliwg 100 units/mL Injection-Insulin SubCutaneous, Refills(s) 0 Start Date: 11/19/18 Status: Ordered Start: 12-25-2016 End: 37-34-3297nodvzm 30 [IU] by subcutaneous injection once daily at bedtime Insulin Detemir U-100 (Levemir U-100 Insulin) 100 unit/mL Solution Discontinued 30 UNIT SUBCUT Daily at bedtime January 19, 2020 12:00am March 21, 2020 10:30amStart: 12-25-2016 End: 45-30-5857Pmdpvno Detemir U-100 100 unit/mL solution Discontinued 0 UNIT SUBCUT Before meals and at [...] 400 mg/dl Dose/Route: 9 unit Instructions: Call Provider December 25, 2016 12:00am March 21, 2020 10:30am . Please contact the information source for Protocol details.Levemir FlexTouch 100 UNIT/ML as directed Subcutaneous 42 units in the am ActiveINSULIN DETEMIR (LEVEMIR FLEXPEN SUBCUTANEOUS) Inject subcutaneously. 0 SuspendedLevemir FlexTouch 100 UNIT/ML SOPN 42 units Quantity: 0 Refills: 0 Ordered: 21-Feb-2022 DO ActiveINSULIN DETEMIR (LEVEMIR FLEXPEN SUBCUTANEOUS) Inject subcutaneously. 0 ActiveLevemir FlexTouch 100 UNIT/ML Subcutaneous Solution Pen-injector 42 units Quantity: 0 Refills: 0 Ordered: 21-Feb-2022 DO ActiveLevemir FlexTouch 100 UNIT/ML as directed Subcutaneous 40 units in the am Activeinject 30 [IU] by subcutaneous injection once daily, then inject 40 [IU] by subcutaneous injection in the morningLevemir FlexTouch 100 UNIT/ML inject 30 units subcutaneously daily Subcutaneous 40 units in the am ActiveComment on above:Inject subcutaneously.Lactobacillus Combination No.4 (Probiotic) 3 billion cell Capsule (20 sources)Start: 03-21-2020 End: 96-74-1408mjhs 3 capsules by mouth once dailyLactobacillus Combination No.4 (Probiotic) 3 billion cell Capsule Discontinued 3000 MMU CELLS PO Daily March 21, 2020 12:00am May 25, 2020 12:43pmStart: 03-21-2020 End: 56-13-6735gsuw 3 capsules by mouth once dailyLactobacillus Combination No.4 (Probiotic) 3 billion cell Capsule Discontinued 3000 MMU CELLS PO Daily March 21, 2020 1:00am May 25, 2020 1:43pmStart: 12-25-2016 End: 68-64-7378Plxjtlsldbear Combination No.4 (Probiotic) 3 billion cell Capsule Discontinued December 24, 201611:00pm December 22, 2019 7:19amStart: 12-25-2016 End: 08-42-4099Fahqzjnzzedbt Combination No.4 (Probiotic) 3 billion cell Capsule Discontinued December 25, 201612:00am December 22, 2019 8:19am levoFLOXacin 500 mg oral tablet (20 sources)Quinolone AntimicrobialStart: 09-14-2024 End: 64-32-5754Ednvuctgtzky 500 mg Tablet Discontinued 500 MG PO Every 48 hours 4 7 0 September 14, 2024 12:00am 2024 7:28amStart: 10-24-2022 End: 99-37-7568fexd 1 tablet by mouth every twenty-four hoursLevofloxacin 750 mg Tablet Discontinued 750 MG PO Q24H 21 0 October 24, 2022 12:00am January 17, 2023 1:18pmStart: 05-22-2020 End: 25-83-9401eyzo 1 tablet by mouth once dailyLevofloxacin 500 mg tablet Discontinued 500 MG PO Daily 10 10 0 May 22, 2020 1:00am 2020 11:55amStart: 05-22-2020 End: 47-29-6434Ymurt: 10-13-2019 End: 49-68-5442blee 1 tablet by mouth once dailyLevofloxacin (Levaquin) 750 mg Tablet Discontinued 750 MG PO Daily October 13, 2019 12:00am October 27, 2019 10:04amStart: 10-13-2019 End: ml liraglutide 6 mg/ml pen injector (20 sources)GLP-1 Receptor AgonistStart: 05-25-2020 End: 77-16-1373zzshri 1.8 mg by subcutaneous injection once dailyLiraglutide 0.6 mg/0.1 mL (18 mg/3 mL) Pen Injector Discontinued 1.8 MG SUBCUT Daily May 1:00am September 16, 2020 5:24pmStart: 10-13-2019 End: 50-99-7935Umpqashmnuz (Victoza 2-Leo) 0.6 mg/0.1 mL (18 mg/3 mL) Pen Injector Discontinued 1.8 MG SUBCUT Daily October 13, 2019 12:00am March 21, 2020 10:35amStart: 74-83-8938teshnu 1.8 mg by subcutaneous injection once daily Victoza 1.8 mg, SubCutaneous, Daily Start Date: 11/19/18 Status: Ordered LIRAGLUTIDE (VICTOZA 2-LEO SUBCUTANEOUS) Inject subcutaneously. As directed 0 SuspendedLIRAGLUTIDE (VICTOZA 2-LEO SUBCUTANEOUS) Inject subcutaneously. As directed 0 ActiveComment on above:Inject subcutaneously. As directedlosartan potassium 50 mg oral tablet (20 sources)Angiotensin 2 Receptor BlockerStart: 04-02-2023 End: 44-15-5283vfpg 1 tablet by mouth once daily in the morningLosartan 50 mg tablet Discontinued 50 MG PO Every morning April 02, 2023 1:00am September 1152:49pmStart: 11-21-2021 End: 99-58-4731Otfra: 80-24-7177sttg 50 mg by mouth once dailyLosartan Active 50 MG PO Daily November 21, 2021 7:13pmStart: 05-18-2021 End: 03-98-5193zbmw 2 tablets by mouth once dailyLosartan 25 mg tablet Discontinued 50 MG PO Daily 30 November 21, 2021 7:13pm October 21, 2022 12:4 2pmStart: 05-18-2021 End: 10-66-2457Guzpy: 03-21-2020 End: 10-53-7996Ouqph: 09-30-2018 End: 14-09-0468sehm 1 tablet by mouth once dailyLosartan 25 mg tablet Discontinued 25 MG PO Daily May 18, 2021 1:00am November 21, 2021 7:18pm Start: 09-30-2018 End: 65-11-8649jozi 1 tablet by mouth once dailyLosartan (Cozaar) 50 mg Tablet Discontinued 50 MG PO Daily October 13, 2019 12:00am January 26, 2020 9:53amtake 1 tablet by mouth once dailylosartan (COZAAR) 100 mg tablet Take 100 mg by mouth once daily. 0 SuspendedComment on above:Take 100 mg by mouth once daily. loteprednol etabonate 5 mg/ml ophthalmic suspension (20 sources)Start: 11-14-2021 End: 13-32-5717omyv 1 drop(s) into the eye(s) four times dailyLoteprednol Etabonate 0.5 % Drops,Suspension Discontinued 1 DROPS EYE-LEFT Four times daily November 14, 2021 12:00am July 17, 2022 7:26amStart: 11-14-2021 End: 35-84-5260tzbw 1 drop(s) into the eye(s) four times dailyLoteprednol Etabonate 0.5 % Drops,Suspension Discontinued 1 DROPS EYE-LEFT Four times daily November 14, 2021 12:00am July 17, 2022 7:26amStart: 11-14-2021 End: 35-49-7901etwk 1 drop(s) into the eye(s) four times dailyLoteprednol Etabonate Discontinued 1 DROPS EYE-LEFT Four times daily November 14, 2021 12:00am July 17, 2022 7:26amtake 1 drop(s) into the eye(s) four times daily magnesium hydroxide 80 mg/ml oral suspension (7 sources)magnesium hydroxide (MOM) 400 mg/5 mL suspension Take by mouth once daily as needed. 0 ActiveComment on above:Take by mouth once daily as needed. meropenem 500 mg injection (20 sources)Penem AntibacterialStart: 09-12-2022 End: 91-75-6305swub 500 mg intravenously every twelve hoursMeropenem 500 mg Recon Soln Discontinued 0.5 GM IV Q12H 80 40 0 September 12, 2022 12:00am October 24, 2022 4:04pmStart: 09-12-2022 End: 04-35-6408dbal 0.5 g intravenously every twelve hoursMeropenem Discontinued 0.5 GM IV Q12H 80 40 September 12, 2022 12:00am October 24, 2022 4:04pm24 hr metoprolol succinate 25 mg extended release oral tablet (13 sources)beta-Adrenergic BlockerStart: 09-10-2024 End: 93-79-7626qwpv 2 tablets by mouth once dailyMetoprolol Succinate 25 mg tablet extended release 24 hr Discontinued 12.5 MG PO Daily September 10, 2024 12:00am September 14, 2024 1:10pmMultivitamin preparation (20 sources)Start: 12-25-2016 End: 25-70-1473ompk 1 tablet by mouth once dailyMultivitamin Discontinued 1 TAB PO Daily December 24, 2016 11:00pm May 25, 2020 12:43pmStart: 12-25-2016 End: 75-79-5756oysr 1 tablet by mouth once dailyMultivitamin Discontinued 1 TAB PO Daily December 25, 2016 12:00am May 25, 2020 1:43pmtake 1 tablet by mouth once dailyMULTIVITAMIN (MULTIPLE VITAMIN ORAL) Take 1 tablet by mouth once daily. 0 Suspendedtake 1 tablet by mouth once dailyMULTIVITAMIN (MULTIPLE VITAMIN ORAL) Take 1 tablet by mouth once daily. 0 ActiveComment on above:Take 1 tablet by mouth once daily.Multivitamin Tablet (14 sources)Start: 12-25-2016 End: 21-62-5469dnfp 1 tablet by mouth once dailyMultivitamin Tablet Discontinued 1 TAB PO Daily December 25, 2016 12:00am May 25, 2020 1:43pmNacl-Zn Ac-Vit B6-Citric Acid (Wound Cleanser) Prosser,Non-Aerosol (20 sources)Start: 05-18-2021 End: 32-68-3098Eyoo-Zn Ac-Vit B6-Citric Acid (Wound Cleanser) Prosser,Non-Aerosol Discontinued 1 SPRAY IRRIGATION Daily May 18, 2021 12:00am November 14, 2021 12:21pmStart: 05-18-2021 End: 21-71-1916Ldok-Zn Ac-Vit B6-Citric Acid (Wound Cleanser) Prosser,Non-Aerosol Discontinued 1 SPRAY IRRIGATION Daily May 18, 2021 1:00am November 14, 2021 1:21pmNIFEdipine 60 mg osmotic 24 hr extended release oral tablet (20 sources)Dihydropyridine Calcium Channel BlockerStart: 09-12-2022 End: 30-50-8963tjhd 1 tablet by mouth once daily in the morningNifedipine 60 mg tablet extended release 24hr Discontinued 90 MG PO Every morning October 21, 2022 12:41pm September 11, 2024 2:44pm 30mg and 60mg tab for 90mg totalStart: 09-12-2022 End: 37-86-8698Wsnyz: 09-12-2022 End: 18-10-8047Kjddx: 80-12-5118nizd 1 mg by mouth once dailyNIFEdipine 30 mg ER Tab mg tab(s), Oral, Daily, Refills(s) 0 Start Date: 06/07/22 Status: Ordered Start: 11-21-2021 End: 09-43-9500momr 1 tablet by mouth once dailyNifedipine 30 mg Tablet Extended Release 24 Hr Discontinued 30 MG PO Daily 0 0 November 21, 2021 12:00am September 12, 2022 2:36pmStart: 40-77-1517fzii 30 mg by mouth once dailyNifedipine Active 30 MG PO Daily 0 November 21, 2021 12:00amtake 1 tablet by mouth every twenty- four hourstake 1 tablet by mouth every twenty-four hoursNIFEdipine ER 30 MG 1 tablet on an empty stomach Orally Once a day Activetake 1 tablet by mouth once dailyNIFEdipine ER (PROCARDIA XL) 30 mg 24 hr tablet Take 30 mg by mouth once daily. 0 ActiveComment on above:Take 30 mg by mouth once daily.ondansetron 4 mg disintegrating oral tablet (20 sources)Serotonin-3 Receptor AntagonistStart: 09-09-2024 End: 91-16-6155cjdl 1 tablet by mouth every eight hoursOndansetron 4 mg tablet,disintegrating Discontinued 4 MG PO Every 8 hours 12 4 0 September 09, 2024 12:00am September 11, 2024 2:50pmtake 1 tablet by mouth every eight hours as needed ondansetron (ZOFRAN) 4 mg tablet Take 4 mg by mouth every 8 hours as needed. 0 ActiveComment on above:Take 4 mg by mouth every 8 hours as needed.plecanatide 3 mg oral tablet (20 sources)Start: 03-21-2020 End: 56-63-1510mngp 1 tablet by mouth once dailyPlecanatide (Trulance) 3 mg Tablet Discontinued 3 MG PO Daily March 21, 2020 1:00am May 25, 2020 1:44pmStart: 12-25-2016 End: 91-64-9326okqy 1 tablet by mouth once dailyPlecanatide (Trulance) 3 mg tablet Discontinued 3 MG PO Daily 30 0 December 25, 2016 12:00am January 26, 2020 9:53amPlecanatide (Trulance) 3 mg Tablet (20 sources)Start: 03-21-2020 End: 16-68-0598cbvl 1 tablet by mouth once dailyPlecanatide (Trulance) 3 mg Tablet Discontinued 3 MG PO Daily March 21, 2020 12:00am May 25, 2020 12:44pmStart: 03-21-2020 End: 91-86-3337ktab 1 tablet by mouth once dailyPlecanatide (Trulance) 3 mg Tablet Discontinued 3 MG PO Daily March 21, 2020 1:00am May 25, 2020 1:44pmPotassium (7 sources)POTASSIUM ORAL Take by mouth. 0 SuspendedPOTASSIUM ORAL Take by mouth. 0 ActiveComment on above:Take by mouth.potassium chloride 20 meq extended release oral tablet (20 sources)Start: 05-18-2021 End: 66-01-0523eizc 1 tablet by mouth once dailyPotassium Chloride 20 mEq Tablet Extended Release Discontinued 20 MEQ PO Daily May 18, 2021 1:00am July 10, 2023 5:46pmStart: 19-43-8969sbkp 1 tablet by mouth twice dailypotassium chloride 20 mEq ER Tab mEq tab(s), Oral, BID, Refills(s) 0 Start Date: 06/07/22 Status: OrderedStart: 03-21-2020 End: 36-83-6495Qdaubdipz Chloride (Klor-Con M20) 20 mEq Tablet,Er Particles/Crystals Discontinued 20 MEQ PO Twice daily March 21, 2020 1:00am May 25, 2020 1:44pmStart: 12-25-2016 End: 40-77-9382Rrncyspem Chloride 20 mEq tablet,ER particles/crystals Discontinued 30 MEQ PO Daily December 12:00am January 26, 2020 9:53amStart: 12-25-2016 End: 63-94-3574Wbesd: 12-25-2016 End: 10-77-7028kufk 30 mEq by mouth once dailyPotassium Chloride Discontinued 30 MEQ PO Daily December 25, 2016 12:00am January 26, 2020 9:53amtake 1 dose by mouth once daily at mealtimePotassium Chloride 20 MEQ 1 packet with food Orally Once a day Activetake 1 tablet by mouth every twenty-four hoursKlor-Con M20 20 mEq 1 tablet with food Orally qd ActivePSEUDOEPHEDRINE/ACETAMINOPHEN (CEPACOL SORE THROAT ORAL) (7 sources)PSEUDOEPHEDRINE/ACETAMINOPHEN (CEPACOL SORE THROAT ORAL) Take by mouth. 0 SuspendedPSEUDOEPHEDRINE/ACETAMINOPHEN (CEPACOL SORE THROAT ORAL) Take by mouth. 0 ActiveComment on above:Take by mouth.saccharomyces boulardii 250 mg oral capsule (20 sources)Start: 11-21-2021 End: 85-04-9069pgzz 1 capsule by mouth twice daily at mealtimeSaccharomyces Boulardii (Florastor) 250 mg Capsule Discontinued 250 MG PO Twice daily with meals 0 0 November 21, 2021 12:00am October 21, 2022 12:42pmStart: 92-20-2430zlbb 1 capsule by mouth twice daily at mealtimeSaccharomyces Boulardii (Florastor) 250 mg Capsule Active 250 MG PO Twice daily with meals 0 2021 12:00amSaccharomyces boulardii Active0.25 mg, 0.5 mg dose 1.5 ml semaglutide 1.34 mg/ml pen injector (20 sources)Start: 05-25-2020 End: 78-02-8403Vosuxgyyhzs (Ozempic) 0.25 mg or 0.5 mg(2 mg/1.5 mL) pen injector Discontinued 0.5 MG SUBCUT every week May 25, 2020 1:00am May 30, 2020 1:35pm On sodium bicarbonate 650 mg oral tablet (20 sources)Start: 11-21-2021 End: 62-60-9497dlnx 2 tablets by mouth three times dailySodium Bicarbonate 650 mg Tablet Discontinued 1300 MG PO Three times daily 180 30 0 September 12, 2022 1 2:00am April 02, 2023 12:33pmStart: 11-21-2021 End: 19-80-6356hmfx 1 tablet by mouth three times dailySodium Bicarbonate 650 mg tablet Discontinued 650 MG PO Three times daily April 02, 2023 12:33pm September 11, 2024 2:50pmStart: 11-21-2021 End: 43-50-9539pigf 1300 mg by mouth three times dailySodium Bicarbonate Discontinued 1300 MG PO Three times daily 180 30 September 12, 2022 12:00am April 02, 2023 12:33pmStart: 11-21-2021 End: 68-50-5776qlrc 3 tablets by mouth once dailysodium bicarbonate 650 mg Tab 1,950 mg = 3 tab(s), Oral, Daily, # 60 tab(s), Refills(s) 0 Start Date: 06/07/22 Status: OrderedStart: 21-99-0093jlhu 650 mg by mouth three times dailySodium Bicarbonate Active 650 MG PO Three times daily 0 November 21, 2021 12:00amtake 1 tablet by mouth every eight hoursSodium Bicarbonate 650 MG 1 TABLET Orally THREE TIMES A DAY Activesulfamethoxazole 800 mg / trimethoprim 160 mg oral tablet (20 sources)Dihydrofolate Reductase Inhibitor Antibacterial, Sulfonamide AntimicrobialStart: 08-27-2022 End: 81-29-9662bcvr 1 tablet by mouth every twelve hoursSulfamethoxazole- Trimethoprim (Bactrim Ds) 800-160 mg tablet Discontinued 1 TAB PO Q12H 14 7 0 August 27, 2022 12:00am October 21, 2022 12:42pmStart: 08-27-2022 End: 52-46-0994ymueotuobeectduu-trimethoprim (BACTRIM DS,SEPTRA DS) 800-160 mg per tablet Take by mouth twice daily. 0 ActiveComment on above:Take by mouth twice daily.tamsulosin hydrochloride 0.4 mg oral capsule (20 sources)alpha-Adrenergic BlockerStart: 07-17-2022 End: 30-83-7819hvkq 1 capsule by mouth twice dailyTamsulosin (Flomax) 0.4 mg Capsule Discontinued 0.4 MG PO Twice daily July 17, 2022 12:00am 2024 1:10pmStart: 27-41-9907wuvq 1 capsule by mouth once dailytamsulosin 0.4 mg Cap 0.4 mg = 1 cap(s), Oral, Daily Start Date: 11/19/18 Status: OrderedStart: 12-25-2016 End: 93-10-7846jxlj 1 capsule by mouth twice dailyTamsulosin (Flomax) 0.4 mg capsule,extended release 24hr Discontinued 0.4 MG PO Twice daily December 25, 2016 12:00am April 22, 2022 11:08amComment on above:Take 0.4 mg by mouth. thioctic acid 300 mg oral capsule (20 sources)Start: 03-21-2020 End: 47-38-5979Cdtkz Lipoic Acid 300 mg Capsule Discontinued 200 MG PO Daily March 21, 2020 1:00am October 12:42pmStart: 03-21-2020 End: 63-92-2483sklx 200 mg by mouth once dailyAlpha Lipoic Acid Discontinued 200 MG PO Daily March 21, 2020 1:00am October 21, 2022 12:42pmtake 1 capsule by mouth every twenty-four hoursVancomycin - Pharmacy Dosing (20 sources)Start: 09-12-2022 End: 35-09-2340jplq 1 g intravenously once as neededVancomycin - Pharmacy Dosing Discontinued 1 EACH IV Once as needed for infection 25 0 September 12, 2022 12:00am October 21, 2022 12:42pm 1 gm IV q 48 with pharmacy to dose for 40 daysStart: 09-12-2022 End: 45-97-1090jvum 1 g intravenously once as neededVancomycin - Pharmacy Dosing Discontinued 1 EACH IV Once as needed for infection September 12, 2022 12:00am October 21, 2022 12:42pm 1 gm IV q 48 with pharmacy to dose for 40 daysStart: 09-12-2022 End: 06-83-5362yrrl 1 g intravenously onceVancomycin - Pharmacy Dosing Discontinued 1 EACH IV Once September 12, 2022 12:00am October 21, 2022 12:42pm 1 gm IV q 48 with pharmacy to dose for 40 daysStart: 09-12-2022 End: 90-82-8409rsbm 1 g intravenously onceVancomycin - Pharmacy Dosing Discontinued 1 EACH IV Once September 11, 2022 11:00pm October 21, 2022 11:42am 1 gm IV q 48 with pharmacy to dose for 40 daysVancomycin In Dextrose 5 % (20 sources)Start: 11-21-2021 End: 34-58-7450Pwmzovvhfb In Dextrose 5 % Discontinued 0 .ROUTE .COMPLEX 5000 November 20, 2021 11:00pm January 11, 2022 3:03pm For a TOTAL of 10 days of treatmentStart: 11-21-2021 End: 02-79-2981Ezmbotgscf In Dextrose 5 % Discontinued 0 .ROUTE .COMPLEX 5000 November 21, 2021 12:00am January 11, 2022 4:03pm For a TOTAL of 10 days of treatmentStart: 81-73-4644Jbafxyvvod In Dextrose 5 % Active 0 .ROUTE .COMPLEX 5000 November 21, 2021 12:00am For a TOTAL of 10 days of treatmentVancomycin In Dextrose 5 % 1 gram/250 mL solution (14 sources)Start: 11-21-2021 End: 55-91-2305Nfknvsksoq In Dextrose 5 % 1 gram/250 mL solution Discontinued 0 .ROUTE .COMPLEX 5000 0 November 21, 2021 12:00am January 11, 2022 4:03pm For a TOTAL of 10 days of treatmentStart: 11-21-2021 End: 57-64-5547Jggyxhhmvw In Dextrose 5 % 1 gram/250 mL solution Discontinued 0 .ROUTE .COMPLEX 5000 November 21, 2021 12:00am January 11, 2022 4:03pm For a TOTAL of 10 days of treatmentVitamin B Complex (20 sources)Start: 12-25-2016 End: 97-44-2682bdrl 1 capsule by mouth once dailyVitamin B Complex Discontinued 1 CAP PO Daily December 24, 2016 11:00pm May 25, 2020 12:45pmStart: 12-25-2016 End: 08-42-5523qmpa 1 capsule by mouth once dailyVitamin B Complex Discontinued 1 CAP PO Daily December 25, 2016 12:00am May 25, 2020 1:45pmVITAMIN B COMPLEX (B-COMPLEX ORAL) Take by mouth. 0 SuspendedVITAMIN B COMPLEX (B-COMPLEX ORAL) Take by mouth. 0 ActiveVitamin B Complex - Orally ActiveComment on above: Take by mouth.Vitamin B Complex Capsule (14 sources)Start: 12-25-2016 End: 10-51-6621rrfg 1 capsule by mouth once dailyVitamin B Complex Capsule Discontinued 1 CAP PO Daily December 25, 2016 12:00am May 25, 2020 1:45pm Problems Active Problems Problem ClassificationProblemDateDocumented DateEpisodic/ChronicAcquired foot deformities (20 sources)Foot-drop; Translations: [Foot drop, right foot]90-80-0689Agitryef Acute and unspecified renal failure (20 sources)Injury of kidney; Translations: [Acute kidney failure, unspecified] Onset: [id number] cerebrovascular disease (7 sources)Cerebrovascular jfnlootl27-37-2708KommayqYzgml myocardial infarction (7 sources)Myocardial ncywifogyr33-16-5396AjsicgbNcjchqefprupip/social admission (6 sources)Unable to transfer from wheelchair to chair; Translations: [Other symptoms involving nervous and musculoskeletal systems]EpisodicAlcohol-related disorders (20 sources)Alcohol abuse; Translations: [Alcohol abuse, uncomplicated] 47-27-8635VkqqaucWmpipzq disorders (7 sources)Anxiety -01-7750MpiozndAtccdsojn infection; unspecified site (20 sources)Bacterial infection due to Proteus mirabilis; Translations: [Other bacterial infections of unspecified site]29-63-2960YhxlfsgyNuvmmbze of urinary tract (20 sources)Kidney stone; Translations: [Calculus of kidney]Onset: 01-03-2021 Resolved: 14-74-9116XvjxgllzDlncgdk kidney disease (20 sources)Chronic kidney disease stage 3; Translations: [Chronic kidney disease, stage 3 (moderate)]Onset: 03-25-2017 Resolved: 38-70-3027WnqroxpZjuphdw on above:Patient has advanced CKD due to diabetic nephropathy, hypertension and obstructive nephropathy. Patient has history of left hydronephrosis needed percutaneous nephrostomy tube placement which was removed. Repeat renal ultrasound revealed persistent left hydroureteronephrosis. Spot urine showed significant proteinuria 10 g/g of creatinine seems to be diabetic nephropathy. Serum creatinine has progressed over the last 2 years because of noncompliance with medications and follow-up with his doctors. Creatinine has increased up to 7.4 mg/dL. He did agree to proceed with dialysis and had AV fistula inserted in April 2023 with revision on July 03, 2023.He has anemia in setting of CKD, hemoglobin stable at 9 g/dL with healing of right foot infection. Patient has borderline iron stores on ferrous sulfate. Folic acid level is low. He has a borderline B12 on multivitamins. 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, implants and grafts, initial encounter]10-13-2024 ChronicComplication of device; implant or graft (20 sources)Obstruction of urinary stent; Translations: [Other mechanical complication of nephrostomy catheter,initial encounter]03-30-8660Qpaqeygt Complications of surgical procedures or medical care (20 sources)Complication of external stoma of urinary tract; Translations: [Other complication of incontinent external stoma of urinary tract]07-17-2022 EpisodicCoronary atherosclerosis and other heart disease (10 sources)Coronary atherosclerosis; Translations: [Coronary atherosclerosis of ute coronary artery]Onset: 096479-05-2831JrjthwkYwnyovwalh and other anemia (18 sources)Anemia secondary to renal failure; Translations: [Anemia in chronic kidney disease]ChronicDeficiency and other anemia (6 sources)Anemia in chronic kidney disease; Translations: [Anemia secondary to renal failure D63.1]Onset: 01-03-2021 Resolved: 66-54-7371UxhnzzjLzbyyqfswe and other anemia (20 sources)Anemia; Translations: [Anemia, unspecified]Onset: 03-25-2017 39-68-5825DlzbexsfEgnbjjvsvn and other anemia (20 sources)Anemia, unspecified; Translations: [Anemia, unspecified]Onset: 235404-71-7063AkpojjtsFkghelff mellitus with complications (20 sources)Renal disorder due to type 2 diabetes mellitus; Translations: [Type 2 diabetes mellitus with diabetic nephropathy]Onset: 01-03-2021 Resolved: 91-13-8331MqdhjwzUqqgebtn mellitus without complication (20 sources)Diabetes mellitus; Translations: [Type 2 diabetes mellitus without complications]Onset: 591027-12-4937AkapujsCukytwen mellitus without complication (2 sources)Diabetes mellitus without complication; Translations: [Type 2 diabetes mellitus with foot ulcer]Onset: 80-05-2400Wzvemlfb of white blood cells (20 sources)Leukocytosis; Translations: [Elevated white blood cell count, unspecified]Onset: 183204-58-7284FugvmvkFhzpqkhbf of lipid metabolism (20 sources)Mixed hyperlipidemia; Translations: [Mixed hyperlipidemia]Onset: 07-18-2017 Resolved: 46-91-6262HqjjxwjLmhvzvzbyf disorders (10 sources)Gastroesophageal reflux disease; Translations: [Gastroesophageal reflux disease without esophagitis]Onset: 632152-97-4321AwshfhlRxnrmzgjwe disorders (18 sources)Disorder of esophagus; Translations: [Other specified diseases of esophagus]EpisodicEssential hypertension (20 sources)Hypertensive disorder; Translations: [Essential (primary) hypertension]08-93-0157CrndaftLvvpi and electrolyte disorders (20 sources)Metabolic acidosis, increased anion gap (IAG); Translations: [Acidosis]Onset: 892209-62-3388PbxtvtmqIxdueul on above:Potassium in the high range of normal related to progressive chronic kidney disease and obstructiveuropathy. He is on potassium supplement that will be stopped. Continue furosemide 40 mg twice a day.Genitourinary symptoms and ill-defined conditions (7 sources)Post-micturition etpvulycsrau00-75-5062EobvaqkIhkxzejgjutfv symptoms and ill-defined conditions (20 sources)Increased frequency of urination; Translations: [Nocturia]Onset: 741012-82-7489XmdjxonqFwjbzfnkv (18 sources)Chronic hepatitis C; Translations: [Chronic viral hepatitis C] ChronicHepatitis (7 sources)Viral hepatitis C64-38-7527WtuenozxRyqmfnsogka of prostate (15 sources)Benign prostatic hypertrophy with outflow obstruction; Translations: [Benign prostatic hyperplasia with lower urinary tract symptoms]Onset: 72-98-6873ChursikYoegtewqccsh with complications and secondary hypertension (20 sources)Chronic kidney disease due to hypertension; Translations: [Hypertensive chronic kidney disease withstage 1 through stage 4 chronic kidney disease, or unspecified chronic kidney disease]Onset: 01-03-2021 Resolved: 23-27-2551SjoaivrCykdezm on above:Blood pressure was quite variable according to the volume status. Patient used to be on losartan that was stopped because of progressive chronic kidney disease and hyperkalemia. He is currently on furosemide with mild edema. Patient is high risk for progression of CKD with low blood pressure.Immunizations and screening for infectious disease (7 sources)Patient encounter status; Translations: [Other specified vaccination] EpisodicInfective arthritis and osteomyelitis (except that caused by tuberculosis or sexually transmitted disease) (20 sources)Osteomyelitis of ankle AND/OR foot; Translations: [Osteomyelitis, unspecified]Onset: 908307-43-2241IsetrhlVluj disorders (7 sources)Depressive -99-5031GqgsxrnSpiqjb and vomiting (20 sources)Nausea; Translations: [Nausea]91-09-1117UrdokwsmZrqu wounds of extremities (20 sources)Unspecified open wound, right lower leg, initial encounter; Translations: [Injury of right foot]Onset: 09-25-2021 Resolved: 47-32-9855PzrfrpahTwjfeuqovozlxq (7 sources)Svhyawbdx47-61-4822CfkfypmOmqvi aftercare (4 sources)Long-term current use of drug therapy; Translations: [MCFP (current) use of antithrombotics/antiplatelets]Onset: 88-80-7973OdceueaaLzkco bone disease and musculoskeletal deformities (8 sources)History of amputation of left foot; Translations: [Acquired absence of left foot]28-89-5604PohjytyMdwnn circulatory disease (6 sources)Acquired arteriovenous fistula aneurysm; Translations: [Arteriovenous fistula, acquired]ChronicOther circulatory disease (11 sources)Arteriovenous fistula, acquired; Translations: [Arteriovenous fistula, acquired]ChronicOther circulatory disease (20 sources)Arteriovenous fistula; Translations: [Arteriovenous fistula, acquired]29-05-0271LxuunxuBbunx connective tissue disease (18 sources)Pain in left foot; Translations: [Pain in left foot]EpisodicOther diseases of kidney and ureters (20 sources)Hemorrhage of kidney; Translations: [Other specified disorders of kidney and ureter]30-81-3713KmdtpdsYzlfl diseases of kidney and ureters (6 sources)Hyperparathyroidism due to renal insufficiency; Translations: [Secondary hyperparathyroidism of renal origin]ChronicOther diseases of kidney and ureters (1 source)Secondary hyperparathyroidism of renal originChronicOther diseases of kidney and ureters (20 sources)Secondary hyperparathyroidism; Translations: [Secondary hyperparathyroidism of renal origin]13-33-4578YfzkyfbXklgc diseases of kidney and ureters (20 sources)Hydroureteronephrosis ; Translations: [Unspecified hydronephrosis] Onset: 422500-68-6516BluwtxatDnfla diseases of kidney and ureters (20 sources)Hydronephrosis; Translations: [Unspecified hydronephrosis]Onset: 429141-87-7736IvtusqweNkbgyqq on above:Patient has history of nephrolithiasis with left-sided hydronephrosis. Patient is supposed to follow with Dr. CALZADA in urology office. Patient had left percutaneous nephrostomy tube placed which was removed 3 months ago. Patient has been refusing to follow-up with urology and he did refuse intervention during hospitalization on October 2022. Other diseases of kidney and ureters (20 sources)Unspecified hydronephrosis; Translations: [Hydronephrosis]Onset: 660621-03-6382WbylnyauDcpaw diseases of kidney and ureters (8 sources)Stricture of ureter; Translations: [Crossing vessel and stricture of ureter without hydronephrosis]Onset: 61-32-6901HkedmupcKxngq disorders of stomach and duodenum (20 sources)Gastroparesis syndrome; Translations: [Gastroparesis]Onset: 245249-34-6733JlgofgswBsqiu endocrine disorders (20 sources)Hypoglycemia; Translations: [Hypoglycemia, unspecified]10-13-2022 ChronicOther gastrointestinal disorders (18 sources)Chronic idiopathic constipation; Translations: [Other constipation] EpisodicOther gastrointestinal disorders (18 sources)Abnormal feces; Translations: [Other fecal abnormalities]Episodic Other gastrointestinal disorders (18 sources)Constipation; Translations: [Constipation, unspecified]EpisodicOther gastrointestinal disorders (19 sources)Diarrhea; Translations: [Diarrhea, unspecified]97-93-2653Rfkgdfsm Other injuries and conditions due to external causes (20 sources)Local infection of wound; Translations: [Other injury of unspecified body region, initial encounter]14-00-5338WfghweqxKpyln injuries and conditions due to external causes (15 sources)Other injury of unspecified body region, initial encounter; Translations: [Posttraumatic wound infection not elsewhere classified]09-10-2022 EpisodicOther injuries and conditions due to external causes (12 sources)Superficial laceration; Translations: [Other injury of unspecified body region, initial encounter]14-74-6273VbanlqgbExjxc male genital disorders (8 sources)Male erectile dysfunction, unspecified; Translations: [Erectile dysfunction]Onset: 14-11-3400ZhhhtcxShyrq screening for suspected conditions (not mental disorders or infectious disease) (20 sources)Other specified abnormal findings of blood chemistry; Translations: [High troponin I level]Onset: 253504-45-5047SuhzlooxKsraxuqlav and visceral atherosclerosis (20 sources)Peripheral vascular disease; Translations: [Peripheral vascular disease, unspecified]Onset: 01-03-2021 Resolved: 40-32-5734WzimnhjDrbgfmnj codes; unclassified (20 sources)Unable to perform personal care activity; Translations: [Other specified health status]00-45-5372AhgjcolzRzhbyiep codes; unclassified (20 sources)Left against medical advice; Translations: [Procedure and treatment not carried out because of patient's decision for other reasons]10-21-2022 EpisodicResidual codes; unclassified (1 source)Procedure and treatment not carried out because of patient's decision for other reasons; Translations: [Surgical or other procedure not carried out because of patient's decision]71-41-8021IvxymkksJkvqjhgras (except in labor) (20 sources)Sepsis; Translations: [Sepsis, unspecified organism]Onset: 607074-62-1019LboawoytVryj and subcutaneous tissue infections (20 sources)Cellulitis and abscess of lower limb; Translations: [Cellulitis of right lower limb]Onset: 762979-00-8794NnopvcuxTtpdmbauw-qzgpmqr disorders (20 sources)Smoker; Translations: [Nicotine dependence, unspecified, uncomplicated]Onset: 224822-09-2719VmdqhvySdeblus on above:1 pack every 3 days;Superficial injury; contusion (20 sources)Contusion of right lower leg, initial encounter; Translations: [Contusion of right lower extremity]88-52-4288VkmxednnGxetyyy (11 sources)Syncope; Translations: [Syncope and collapse]73-44-6371Xorgiwdj Unclassified (7 sources)Patient encounter xehqvy98-93-8291Kbfmarhtevyb (1 source)Acidosis, unspecified; Translations: [Acidosis, unspecified]Onset: 86-97-2386Usmnerommgpt (1 source)Other mechanical complication of nephrostomy catheter, initial encounter; Translations: [Other mechanical complication of nephrostomy catheter, initial encounter]Onset: 72-70-4763Efcykgwrdclb (1 source)Encounter for preprocedural cardiovascular examination; Translations: [Encounter for preprocedural cardiovascular examination]Onset: 03-05-2022 Unclassified (1 source)Encounter for preprocedural laboratory examination; Translations: [Encounter for preprocedural laboratory examination]Onset: 01-11-2022 Unclassified (1 source)Retention of urine, unspecified; Translations: [Retention of urine, unspecified]Onset: 60-16-0826Kkjjbznzqqfo (7 sources)A [facility] screening has identified you as FRAIL [...] Four Ways to Beat the Frailty Risk [email or web address] [email or web address]-wfce-the-fra [email or web address] (10 sources)Previously scheduled appointment.Unclassified (5 sources)You have been scheduled for a follow up appointment for the following date and time, please call to reschedule if needed.Unclassified (8 sources)Call for appointment to schedule next procedureUnclassified (2 sources)Call for appointment. I would like to see you in 2 to 3 weeks if no problems before handUrinary tract infections (20 sources)Urinary tract infectious disease; Translations: [Urinary tract infection, site not specified]95-17-4812XaedzqgdKxsze infection (20 sources)COVID-19; Translations: [Severe acute respiratory syndrome coronavirus 2 (SARS-CoV-2) detected]77-09-6460XsutrmgpCsjer infection (1 source)COVID-19; Translations: [COVID-19]Onset: 11-14-2021 Past or Other Problems Problem ClassificationProblemDateDocumented DateEpisodic/ChronicOther aftercare (1 source)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) use of antibioticsOnset: 12-06-2021 Resolved: 87-61-2185DgmgvgivRbbqh aftercare (1 source)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; Translations: [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]Onset: 62-12-4865KwuohjndRdiqh diseases of veins and lymphatics (7 sources)Venous stasis; Translations: [Venous (peripheral) insufficiency, unspecified] Resolved: 22-64-3951KznsagruKxgqr diseases of veins and lymphatics (3 sources)Peripheral venous insufficiency; Translations: [Venous insufficiency (chronic) (peripheral)]Onset: 179062-82-0504XnyldmtdXfknmpinfsjw (7 sources)Patient status finding; Translations: [Patient new to provider] Results Test NameValueInterpretationReference RangeFacilityBasophils Auto (Bld) [#/Vol] Ordered By: Mervat Santiago on 70-79-2970Azagbqoko (Bld) [#/Vol]0.1 10*3/uL0.0-0.2 [facility] HospitalBasophils/100 WBC Auto (Bld)Ordered By: Mervat Santiago on 97-68-4547Vhfkqtccv/100 WBC (Bld)0.6 %.[facility] HospitalCalcium [Mass/volume] in Serum or PlasmaOrdered By: Mervat Santiago on 69-00-0228Utydbva [Mass/Vol]8.7 mg/dL8.6-10.3FProMedica Defiance Regional Hospital Carbon dioxide, total [Moles/volume] in Serum or PlasmaOrdered By: Mervat Santiago on 06-80-9503TQ7 [Moles/Vol]27.6 mmol/L21.0-31.0[facility] HospitalChloride [Moles/volume] in Serum or PlasmaOrdered By: Mervat Santiago on 87-24-0305Lcqjjspq [Moles/Vol]94 mmol/OYkk16-472SoqxxuafqMercer County Community HospitalCholesterol [Mass/volume] in Serum or PlasmaOrdered By: Mervat Santiago on 65-36-1686Mtsckbynyrm [Mass/Vol]160 mg/oE502-695RxuoiychrMercer County Community HospitalComment on above:Chol less than 200 mg/dl low riskChol 201-239 mg/dl borderline riskChol 240 mg/dl and greater high riskCholesterol in HDL [Mass/volume] in Serum or PlasmaOrdered By: Mervat Santiago on 01-25-2025 Cholesterol in HDL [Mass/Vol]58 mg/zS54-91EezhbryqgMercer County Community Hospital Comment on above:HDL CHOL ATP-III CLASSIFICATION Cardiovascular RiskHDL > or equal to 60 mg/dL LOWHDL < 40 mg/dL HIGHCholesterol in LDL Calc [Mass/Vol] Ordered By: Mervat Santiago on 78-83-6152Mxrhmhxvgpt in LDL [Mass/Vol]73 mg/dL0-100 [facility] HospitalComment on above:LDL ATP III CLASSIFICATIONLDL less than 100 mg/dL OptimalLDL 100-129 mg/dL Near or above qdchylxHLF254-349 mg/dL Borderline highLDL 160-189 mg/dL HighLDL greater than 189 mg/dL Very high Cholesterol in VLDL Calc [Mass/Vol]Ordered By: Mervat Santiago on 01-25-2025 Cholesterol in VLDL [Mass/Vol]28 mg/dLMercer County Community Hospital Creatinine [Mass/volume] in Serum or PlasmaOrdered By: Mervat Santiago on 81-75-5318Dlwyzroupd [Mass/Vol]7.18 mg/dLHigh0.70-1.30[facility] HospitalEosinophils Auto (Bld) [#/Vol]Ordered By: Mervat Santiago on 01-25-2025 Eosinophils (Bld) [#/Vol]0.3 10*3/uL0.0-0.45[facility] Eosinophils/100 WBC Auto (Bld)Ordered By: Mervat Santiago on 01-25-2025 Eosinophils/100 WBC (Bld)2.4 %.[facility] HospitalErythrocyte distribution width Auto (RBC) [Ratio]Ordered By: Mervat Santiago on 01-25-2025 Erythrocyte distribution width (RBC) [Ratio]16.7 %High12.0-14.8[facility] HospitalGlomerular filtration rate [Volume Rate/Area] in Serum, Plasma or Blood by CreatinineOrdered By: Mervat Santiago on 96-30-6513Tipwvosuey filtration rate [Volume Rate/Area] in Serum, Plasma or Blood by Creatinine7.415 mL/MinMercer County Community HospitalGlucose [Mass/volume] in Serum or Plasma Ordered By: Mervat Santiago on 51-86-6455Lsiewqt [Mass/Vol]156 mg/vAMxci77-480 [facility] HospitalComment on above:ADA recommended reference rangeRandom Glucose Reference Range is dependent on time and content of last meal. Glucose of more than 200 mg/dL in a nonstressed, ambulatory subject supports the diagnosisof Diabetes Mellitus.Hematocrit Auto (Bld) [Volume fraction]Ordered By: Mervat Santiago on 85-05-6916Glsnpbvjpd (Bld) [Volume fraction]36.3 %Low38.8-50.0[facility] HospitalHemoglobin [Mass/volume] in BloodOrdered By: Mervat Santiago on 69-98-3850Einvbdhrau (Bld) [Mass/Vol]11.8 g/dLLow13.0-17.0[facility] HospitalLeukocytes [#/volume] corrected for nucleated erythrocytes in Blood by Automated coun Ordered By: Mervat Santiago on 50-83-4847YJD corrected for nucl RBC Auto (Bld) [#/Vol]12.6 10*3/uLHigh4.1-10.5FProMedica Defiance Regional HospitalLymphocytes Auto (Bld) [#/Vol]Ordered By: Mervat Santiago on 88-60-3314Pdwdmgizgzb (Bld) [#/Vol]4.6 10*3/uL1.00-4.8[facility] HospitalLymphocytes/100 WBC Auto (Bld) Ordered By: Mervat Santiago on 32-19-5049Frsterrkbbc/100 WBC (Bld)36.9 %.[facility] HospitalH Auto (RBC) [Entitic mass]Ordered By: Mervat Santiago on 07-81-3784KGO (RBC) [Entitic mass]32.3 pg27.5-35.2FProMedica Defiance Regional HospitalMCHC Auto (RBC) [Mass/Vol]Ordered By: Mervat Santiago on 48-67-7773JBIV (RBC) [Mass/Vol]32.6 g/dL32.5-35.6FProMedica Defiance Regional HospitalMCV Auto (RBC) [Entitic vol]Ordered By: Mervat Santiago on 04-42-7468HDK (RBC) [Entitic vol]99.0 fL83.5-101[facility] HospitalMonocytes Auto (Bld) [#/Vol]Ordered By: Mervat Santiago on 01-14-8796Hguqlbgyj (Bld) [#/Vol]1.4 10*3/uLHigh0.0-0.8 [facility] HospitalMonocytes/100 WBC Auto (Bld)Ordered By: Mervat Santiago on 86-12-4171Agnvxenjo/100 WBC (Bld)10.9 %.[facility] HospitalNeutrophils Auto (Bld) [#/Vol]Ordered By: Mervat Santiago on 01-25-2025 Neutrophils (Bld) [#/Vol]6.2 10*3/uL1.8-7.7FProMedica Defiance Regional Hospital Neutrophils/100 WBC Auto (Bld)Ordered By: Mervat Santiago on 01-25-2025 Neutrophils/100 WBC (Bld)49.2 %.[facility] HospitalNo Panel InformationOrdered By: Mervat Santiago on 47-66-6282Lbeonxko Creatinine Clearance (ChemN/AFProMedica Defiance Regional HospitalNucleated erythrocytes [Presence] in Blood by Automated countOrdered By: Mervat Santiago on 19-76-9116Axasfuenx RBC Auto Ql (Bld)0.3 /100{WBC}0-0.5FProMedica Defiance Regional HospitalPlatelet mean volume Auto (Bld) [Entitic vol]Ordered By: Mervat Santiago on 56-95-8959Khjqmody mean volume (Bld) [Entitic vol]9.3 fL6.6-10.1FProMedica Defiance Regional Hospital Platelets Auto (Bld) [#/Vol]Ordered By: Mervat Santiago on 35-51-0647Krwayptod (Bld) [#/Vol]195 10*3/tY359-724YkeigextrMercer County Community HospitalPotassium [Moles/volume] in Serum or PlasmaOrdered By: Mervat Santiago on 67-21-0414Rpecrnwma [Moles/Vol]4.8 mmol/L3.5-5.1FProMedica Defiance Regional HospitalRBC Auto (Bld) [#/Vol]Ordered By: Mervat Santiago on 91-37-4959EZL (Bld) [#/Vol]3.67 10*6/uLLow 3.90-5.60[facility]ville Hospitalerum or plasma anion gap determinationOrdered By: Mervat Santiago on 03-55-4580Wmxdi gap [Moles/Vol]17.2 mmol/LHigh6.0-15.0[facility]ville Hospitalerum or plasma total cholesterol/high density lipoprotein (HDL) cholesterol mass ratOrdered By: Mervat Santiago on 72-38-5868Rdxkeclbrzx.total/Cholesterol in HDL [Mass ratio]2.8 {ratio}<5.0[facility]ville Hospitalodium [Moles/volume] in Serum or PlasmaOrdered By: Mervat Santiago on 73-87-8369Jigipp [Moles/Vol]134 mmol/LLow 136-145[facility] HospitalTriglyceride [Mass/volume] in Serum or PlasmaOrdered By: Mervat Santiago on 59-14-9932Caalpaqfzxcx [Mass/Vol]143 mg/dL 0-149[facility] HospitalComment on above:TRIG ATP III CLASSIFICATIONTRIG less than 150 mg/dL NormalTRIG 150-199 mg/dL Borderline highTRIG 200-500 mg/dL High TRIG greater than 500 mg/dL Very highStandard traceable to the Center for Disease Conrtrol and Prevention (CDC) test method. Urea nitrogen [Mass/volume] in Serum or PlasmaOrdered By: Mervat Santiago on 53-38-2599Gchr nitrogen [Mass/Vol]25 mg/dL7-25[facility] WBC Auto (Bld) [#/Vol]Ordered By: Mervat Santiago on 15-87-7959ZDO (Bld) [#/Vol] 12.6 10*3/uLHigh4.1-10.5FProMedica Defiance Regional HospitalPotassium [Moles/volume] in Serum or PlasmaOrdered By: Olga Lidia Martin on 53-79-9492Yaclzdwwj [Moles/Vol]6.1 mmol/LCritically high3.5-5.1FProMedica Defiance Regional Hospital Comment on above:Critical Result Called to and read back by: LIZETT LOTT at: 12/06/2024 14:04:10 by:[id number] [Moles/volume] in Serum or Plasma Ordered By: Yisel Andrade on 50-69-6148Jtenqjitq [Moles/Vol]2.7 mmol/LCritically low3.5-5.1FProMedica Defiance Regional HospitalComment on above:Critical Result Called to and read back by: KEYSHAWN CARDONA at: 11/12/2024 13:16:31 by:[id number] Potassium [Moles/volume] in Serum or PlasmaOrdered By: Johan Taylor on 56-78-9796Hjtksequv [Moles/Vol]2.8 mmol/LCritically low3.5-5.1FProMedica Defiance Regional HospitalComment on above:Critical Result Called to and read back by: QUIN CARDONA at: 10/11/2024 13:46:45 by:[email or web address] reportOrdered By: Leobardo Saenz on 45-70-4609Zgelq reportPREMIER HEALTH [facility] [place] [address] [place] [address] XRay Report Signed Patient: Simon Lott MR#: [id number] : 1950 Acct:[id number] Age/Sex: 74 / M ADM Date: 5 Loc: ER Room: Type: [facility] ER Attending Dr: Copies to: Pedro Drake [...] Saenz M.D. 09/15/2024 11:30 PM Dictation Location: [place] [address] Transcribed By: BRIANA 09/15/242329 Dictated By: Leobardo Saenz MD 09/15/24 8299 Signed By: 09/15/24 233 [facility] Work Phone: Acanthocytes [Presence] in Blood by Light microscopy Ordered By: Nick Wayne on 45-14-7874Rtgbnnayodbe LM Ql (Bld)Acanthocytes [Presence] in Blood by Light microscopyMercer County Community Hospital Acanthocytes LM Ql (Bld)SlightMercer County Community HospitalAlanine aminotransferase [Enzymatic activity/volume] in Serum or PlasmaOrdered By: Nick Wayne on 78-80-7495ZDC [Catalytic activity/Vol]Alanine aminotransferase [Enzymatic activity/volume] in Serum or Plasma7-52[facility] HospitalALT [Catalytic activity/Vol]12 U/L7[facility] Albumin [Mass/volume] in Serum or Plasma by Bromocresol green (BCG) dye binding methoOrdered By: Nick Wayne on 09-05-3981Hzibucz BCG dye [Mass/Vol]Albumin [Mass/volume] in Serum or Plasma by Bromocresol green (BCG) dye binding metho 3.5-5.7FProMedica Defiance Regional HospitalAlbumin BCG dye [Mass/Vol]3.5 g/dL 3.5-5.7FProMedica Defiance Regional HospitalAlkaline phosphatase [Enzymatic activity/volume] in Serum or PlasmaOrdered By: Nick Wayne on 01-95-5144UDO [Catalytic activity/Vol]Alkaline phosphatase [Enzymatic activity/volume] in Serum or Ynmepf83-855QvssthlmkMercer County Community HospitalALP [Catalytic activity/Vol]104 U/V44-521KoinhcbmrMercer County Community HospitalAnisocytosis LM Ql (Bld)Ordered By: Nick Wayne on 28-86-5586Ezbqyeomdwlh Ql (Bld)Anisocytosis [Presence] in Blood by Light microscopyMercer County Community Hospital Anisocytosis Ql (Bld)ModerateMercer County Community HospitalAspartate aminotransferase [Enzymatic activity/volume] in Serum or PlasmaOrdered By: Nick Wayne on 33-55-6332XIT [Catalytic activity/Vol]Aspartate aminotransferase [Enzymatic activity/volume] in Serum or HaajkaDzjg37-73EsjczyoluMercer County Community HospitalComment on above:Hemolysis is present at a level that could interfere with the result.AST [Catalytic activity/Vol]58 U/HGmht48-30TvttwscoqMercer County Community HospitalComment on above:Hemolysis is present at a level that could interfere with the result.Basophils Auto (Bld) [#/Vol]Ordered By: Nick Wayne on 96-79-8228Rdydfwpub (Bld) [#/Vol]Automated basophil countMercer County Community HospitalBasophils (Bld) [#/Vol]N/AFProMedica Defiance Regional HospitalBasophils/100 WBC Auto (Bld)Ordered By: Nick Wayne on 09-14-2024 Basophils/100 WBC (Bld)Automated basophil %[facility] Basophils/100 WBC (Bld)N/AFProMedica Defiance Regional HospitalBilirubin.total [Mass/volume] in Serum or PlasmaOrdered By: Nick Wayne on 28-61-8568Ikbfljvbg [Mass/Vol]Bilirubin.total [Mass/volume] in Serum or PlasmaHigh0.3-1.0[facility] HospitalBilirubin [Mass/Vol]1.1 mg/dLHigh0.3-1.0[facility] HospitalCalcium [Mass/volume] in Serum or PlasmaOrdered By: Nick Wayne on 75-29-1174Cvzkzbo [Mass/Vol]Calcium [Mass/volume] in Serum or Plasma 8.6-10.3FProMedica Defiance Regional HospitalCalcium [Mass/Vol]8.6 mg/dL8.6-10.3 [facility] HospitalCarbon dioxide, total [Moles/volume] in Serum or PlasmaOrdered By: Nick Wayne on 81-49-7241IT8 [Moles/Vol]Carbon dioxide, total [Moles/volume] in Serum or Xhhkof87.0-31.0[facility] HospitalCO2 [Moles/Vol]23.2 mmol/L21.0-31.0[facility] Chloride [Moles/volume] in Serum or PlasmaOrdered By: Nick Wayne on 09-14-2024 Chloride [Moles/Vol]Chloride [Moles/volume] in Serum or Qviqck62-887BxqnfcqukMercer County Community HospitalChloride [Moles/Vol]98 mmol/K65-069GpfyyjxsrMercer County Community HospitalCreatinine [Mass/volume] in Serum or PlasmaOrdered By: Nick Wayne on 49-13-9553Ufqdqtapot [Mass/Vol]Creatinine [Mass/volume] in Serum or Plasma Significant change up0.70-1.30[facility] HospitalComment on above: Delta: 10.14 on 09/13/24Creatinine [Mass/Vol]7.98 mg/dLSignificant change up0.70-1.30[facility] HospitalComment on above:Delta: 10.14 on 09/13/24-0627Eosinophils Auto (Bld) [#/Vol]Ordered By: Nick Wayne on 09-14-2024 Eosinophils (Bld) [#/Vol]Automated eosinophil countMercer County Community HospitalEosinophils (Bld) [#/Vol]N/[facility] Eosinophils/100 WBC Auto (Bld)Ordered By: Nick Wayne on 09-14-2024 Eosinophils/100 WBC (Bld)Automated eosinophil %[facility] Eosinophils/100 WBC (Bld)N/[facility] CenterEosinophils/100 WBC Manual cnt (Bld)Ordered By: Nick Wayne on 63-20-0243Cokhznpscgh/100 WBC (Bld) Eosinophils/100 leukocytes in Blood by Manual countHigh1-3FProMedica Defiance Regional HospitalEosinophils/100 WBC (Bld)6 %High13FProMedica Defiance Regional HospitalErythrocyte distribution width Auto (RBC) [Ratio]Ordered By: Nick Wayne on 74-57-6653Trtjkxlhcgs distribution width (RBC) [Ratio]Erythrocyte distribution width [Ratio] by Automated ujygaDynj99.0-14.8[facility] HospitalErythrocyte distribution width (RBC) [Ratio]17.6 %High12.0-14.8 [facility] HospitalErythrocyte morphology finding [Identifier] in BloodOrdered By: Nick Wayne on 54-66-7928IVB morphology finding Nom (Bld)RBC morphologyMercer County Community HospitalRB morphology finding Nom (Bld)N/A [facility] HospitalGlobulin Calc (S) [Mass/Vol]Ordered By: Nick Wayne on 37-48-3909Mrdycaqs (S) [Mass/Vol]Serum globulin measurement by calculation (mass/volume)[facility] HospitalGlobulin (S) [Mass/Vol]4.7 g/dLMercer County Community HospitalGlucose Glucometer (BldC) [Mass/Vol]Ordered By: Julian Jones on 64-19-5443Tkuryfi [Mass/Vol]Capillary blood glucose measurement by glucometer (mass/volume)[facility] HospitalComment on above:Random Glucose Reference Range is dependent on time and content of last meal. Glucose of more than 200 mg/dL in a nonstressed, ambulatory subject supports the diagnosis of Diabetes Mellitus.Glucose [Mass/Vol]233 mg/dLMercer County Community HospitalComment on above:Random Glucose Reference Range is dependent on time and content of last meal. Glucose of more than 200 mg/dL in a nonstressed, ambulatory subject supports the diagnosis of Diabetes Mellitus.Glucose [Mass/volume] in Serum or PlasmaOrdered By: Nick Wayne on 74-90-1515Wdoepar [Mass/Vol]Glucose [Mass/volume] in Serum or Yqgzeq14-817BmgmshiryMercer County Community HospitalComment on above:ADA recommended reference rangeRandom Glucose Reference Range is dependent on time and content of last meal. Glucose of more than 200 mg/dL in a nonstressed, ambulatory subject supports the diagnosisof Diabetes Mellitus.Glucose [Mass/Vol]94 mg/dL 70-100[facility] HospitalComment on above:ADA recommended reference rangeRandom Glucose Reference Range is dependent on time and content of last meal. Glucose of more than 200 mg/dL in a nonstressed, ambulatory subject supports the diagnosisof Diabetes Mellitus.Hematocrit Auto (Bld) [Volume fraction]Ordered By: Nick Wayne on 04-54-3272Flkyuyxgrx (Bld) [Volume fraction]Hematocrit [Volume Fraction] of Blood by Automated rwwmbYmw14.8-50.0 [facility] HospitalHematocrit (Bld) [Volume fraction]30.7 %Low 38.8-50.0[facility] HospitalHemoglobin [Mass/volume] in Blood Ordered By: Nick Wayne on 72-24-6360Unywpakynv (Bld) [Mass/Vol]Hemoglobin [Mass/volume] in GpgsgCep15.0-17.0[facility] HospitalHemoglobin (Bld) [Mass/Vol]9.8 g/dLLow13.0-17.0[facility] HospitalLeukocytes [#/volume] corrected for nucleated erythrocytes in Blood by Automated coun Ordered By: Nick Wayne on 62-43-7264RYZ corrected for nucl RBC Auto (Bld) [#/Vol]Leukocytes [#/volume] corrected for nucleated erythrocytes in Blood by Automated counHigh4.1-10.5FProMedica Defiance Regional HospitalWBC corrected for nucl RBC Auto (Bld) [#/Vol]14.1 10*3/uLHigh4.1-10.5FProMedica Defiance Regional HospitalLymphocytes Auto (Bld) [#/Vol]Ordered By: Nick Wayne on 09-14-2024 Lymphocytes (Bld) [#/Vol]Lymphocytes [#/volume] in Blood by Automated count [facility] HospitalLymphocytes (Bld) [#/Vol]N/AFProMedica Defiance Regional HospitalLymphocytes/100 WBC Auto (Bld)Ordered By: Nick Wayne on 28-95-9676Cutomqyqmkp/100 WBC (Bld)Lymphocytes/100 leukocytes in Blood by Automated countMercer County Community HospitalLymphocytes/100 WBC (Bld)N/A [facility] HospitalLymphocytes/100 WBC Manual cnt (Bld)Ordered By: Nick Wayne on 48-42-9409Xldievvzusj/100 WBC (Bld)Lymphocytes/100 leukocytes in Blood by Manual fepgu20-83JxbrbwlgcMercer County Community HospitalLymphocytes/100 WBC (Bld)21 %18-42[facility] Auto (RBC) [Entitic mass] Ordered By: Nick Wayne on 49-22-3801JQF (RBC) [Entitic mass]MCH [Entitic mass] by Automated count27.5-35.2FMercy Memorial Hospital (RBC) [Entitic mass]33.5 pg27.5-35.2FTwin City HospitalHC Auto (RBC) [Mass/Vol] Ordered By: Nick Wayne on 72-80-9727KOLF (RBC) [Mass/Vol]MCHC [Mass/volume] by Automated zpdekDwk27.5-35.6FTwin City HospitalHC (RBC) [Mass/Vol]32.0 g/dLLow32.5-35.6FProMedica Defiance Regional HospitalMCV Auto (RBC) [Entitic vol]Ordered By: Nick Wayne on 48-75-9514QIP (RBC) [Entitic vol]MCV [Entitic volume] by Automated vdzzeFniw88.5-101[facility] MCV (RBC) [Entitic vol]104.7 gJWfrr27.5-101[facility] Macrocytes LM Ql (Bld)Ordered By: Nick Wayne on 80-01-9641Xazkoduvky Ql (Bld) Macrocytes [Presence] in Blood by Light microscopyMercer County Community HospitalMacrocytes Ql (Bld)SlightMercer County Community Hospital Metamyelocytes/100 WBC Manual cnt (Bld)Ordered By: Nick Wayne on 09-14-2024 Metamyelocytes/100 WBC (Bld)Metamyelocytes/100 leukocytes in Blood by Manual countHigh0-0[facility] HospitalMetamyelocytes/100 WBC (Bld)1 %High 0-0[facility] HospitalMonocytes Auto (Bld) [#/Vol]Ordered By: Nick Wayne on 65-48-3080Samlrluco (Bld) [#/Vol]Automated blood monocyte count [facility] HospitalMonocytes (Bld) [#/Vol]N/[facility] CenterMonocytes/100 WBC Auto (Bld)Ordered By: Nick Wayne on 09-14-2024 Monocytes/100 WBC (Bld)Automated monocyte %[facility] Monocytes/100 WBC (Bld)N/[facility] CenterMonocytes/100 WBC Manual cnt (Bld)Ordered By: Nick Wayne on 29-11-3949Wviylttpm/100 WBC (Bld) Monocytes/100 leukocytes in Blood by Manual countHigh211Mer[facility] County Community HospitalMonocytes/100 WBC (Bld)13 %High211Mer[facility] Community HospitalNeutrophils Auto (Bld) [#/Vol]Ordered By: Nick Wayne on 09-14-2024 Neutrophils (Bld) [#/Vol]Neutrophils [#/volume] in Blood by Automated count [facility] HospitalNeutrophils (Bld) [#/Vol]N/[facility] CenterNeutrophils/100 WBC Auto (Bld)Ordered By: Nick Wayne on 40-04-8347Bkhfrxehszy/100 WBC (Bld)Automated neutrophil %[facility] HospitalNeutrophils/100 WBC (Bld)N/[facility] CenterNo Panel InformationOrdered By: Nick Wayne on 42-88-3563Cwzmevsxu GFR (CKD-EPI) 6.533 mL/MinMercer County Community HospitalPharmacy Creatinine Clearance (Chem 10.23[facility]6.533 mL/MinMercer County Community Hospital10.23[facility] HospitalNucleated RBC/100 WBC Manual cnt (Bld) [Ratio]Ordered By: Nick Wayne on 11-16-0608Zdssacekz RBC/100 WBC (Bld) [Ratio]Nucleated erythrocytes/100 leukocytes [Ratio] in Blood by Manual count High00[facility] HospitalNucleated RBC/100 WBC (Bld) [Ratio]18 /100{WBC}[facility]00[facility] HospitalNucleated erythrocytes [Presence] in Blood by Automated countOrdered By: Nick Wayne on 09-14-2024 Nucleated RBC Auto Ql (Bld)Nucleated erythrocytes [Presence] in Blood by Automated countMercer County Community HospitalNucleated RBC Auto Ql (Bld)N/A [facility] HospitalPlatelet adequacy [Presence] in Blood by Light microscopyOrdered By: Nick Wayne on 73-80-4374Xznsefoco LM Ql (Bld)Platelet adequacy [Presence] in Blood by Light microscopyNoProvidence HospitalPlatelawrence memorial hospital LM Ql (Bld)NormalNoProvidence Hospital Platelet mean volume Auto (Bld) [Entitic vol]Ordered By: Nick Wayne on 26-90-0696Nedsjxue mean volume (Bld) [Entitic vol]Platelet mean volume [Entitic volume] in Blood by Automated count6.6-10.1FProMedica Defiance Regional Hospital Platelet mean volume (Bld) [Entitic vol]10.1 fL6.6-10.1FProMedica Defiance Regional HospitalPlatelet morphology finding [Identifier] in BloodOrdered By: Nick Wayne on 71-65-7437Dzpdlfqo morphology finding Nom (Bld)Platelet morphology finding [Identifier] in BloodMercer County Community HospitalPlatelet morphology finding Nom (Bld)N/AFProMedica Defiance Regional HospitalPlatelets Auto (Bld) [#/Vol]Ordered By: Nick Wayne on 50-82-6485Wnkltazqk (Bld) [#/Vol] Platelets [#/volume] in Blood by Automated -784PoflaireeMercer County Community HospitalPlatelets (Bld) [#/Vol]289 10*3/uJ276-102LqezanltmMercer County Community HospitalPlatelets Large [Presence] in Blood by Light microscopyOrdered By: Nick Wayne on 62-74-9307Pbdzqpywm Large LM Ql (Bld)Platelets Large [Presence] in Blood by Light microscopyMercer County Community HospitalPlatelets Large LM Ql (Bld)SlightMercer County Community HospitalPolychromasia [Presence] in Blood by Light microscopyOrdered By: Nick Wayne on 92-65-2432Ghrylwpdmxhhu LM Ql (Bld)Polychromasia [Presence] in Blood by Light microscopyMercer County Community HospitalPolychromasia LM Ql (Bld)ModerateMercer County Community Hospital Potassium [Moles/volume] in Serum or PlasmaOrdered By: Nick Wayne on 09-14-2024 Potassium [Moles/Vol]Potassium [Moles/volume] in Serum or Plasma3.5-5.1FProMedica Defiance Regional HospitalComment on above:Hemolysis is present at a level that could interfere with the result.Potassium [Moles/Vol]4.0 mmol/L3.5-5.1FProMedica Defiance Regional HospitalComment on above:Hemolysis is present at a level that could interfere with the result.Protein [Mass/volume] in Serum or PlasmaOrdered By: Nick Wayne on 14-72-1668Tslbivk [Mass/Vol]Protein [Mass/volume] in Serum or Plasma6.4-8.9[facility] HospitalProtein [Mass/Vol]8.2 g/dL6.4-8.9 [facility] HospitalRB Auto (Bld) [#/Vol]Ordered By: Nick Wayne on 86-29-1608GRT (Bld) [#/Vol]Erythrocytes [#/volume] in Blood by Automated countLow3.90-5.60[facility] HospitalRBC (Bld) [#/Vol]2.93 10*6/uL Low3.90-5.60[facility]ville Hospitalchistocytes [Presence] in Blood by Light microscopyOrdered By: Nick Wayne on 05-22-8851Qsxqcggiuwza LM Ql (Bld) Schistocytes [Presence] in Blood by Light microscopyBarnesville Hospitalchistocytes LM Ql (Bld)SlightBarnesville Hospitalegmented neutrophils/100 WBC Manual cnt (Bld)Ordered By: Nick Wayne on 09-14-2024 Segmented neutrophils/100 WBC (Bld)Manual blood segmented neutrophils/100 ajvvpddwfk39-06NszfwpglsBarnesville Hospitalegmented neutrophils/100 WBC (Bld)59 %50-70Barnesville Hospitalerum or plasma albumin/globulin mass ratioOrdered By: Nick Wayne on 08-33-8113Cnmejle/Globulin [Mass ratio] Serum or plasma albumin/globulin mass ratioMercer County Community Hospital Albumin/Globulin [Mass ratio]0.7 {ratio}[facility]ville Hospitalerum or plasma anion gap determinationOrdered By: Nick Wayne on 66-35-1400Cwyxa gap [Moles/Vol]Serum or plasma anion gap determination6.0-15.0[facility] HospitalAnion gap [Moles/Vol]14.8 mmol/L6.0-15.0[facility]ville Hospitalodium [Moles/volume] in Serum or PlasmaOrdered By: Nick Wayne on 19-69-4251Xuqtmf [Moles/Vol]Sodium [Moles/volume] in Serum or EflhgaIgi777-070 Barnesville Hospitalodium [Moles/Vol]132 mmol/RJpd995-254XawfwldpzMercer County Community HospitalTarget cells [Presence] in Blood by Light microscopy Ordered By: Nick Wayne on 46-91-9708Gloqnm cells LM Ql (Bld)Target cells [facility] HospitalTarget cells LM Ql (Bld)SlightMercer County Community HospitalUrea nitrogen [Mass/volume] in Serum or PlasmaOrdered By: Nick Wayne on 30-48-8764Zpsp nitrogen [Mass/Vol]Urea nitrogen [Mass/volume] in Serum or PlasmaHigh7-25Mer[facility] Community HospitalUrea nitrogen [Mass/Vol]46 mg/dLHigh7-25[facility] HospitalWBC Auto (Bld) [#/Vol]Ordered By: Nick Wayne on 40-99-8309FVK (Bld) [#/Vol]Leukocytes [#/volume] in Blood by Automated countHigh4.1-10.5FProMedica Defiance Regional HospitalWBC (Bld) [#/Vol]15.7 10*3/uLHigh4.1-10.5FProMedica Defiance Regional Hospital Basophilic stippling [Presence] in Blood by Light microscopyOrdered By: Nick Wayne on 51-47-7562Xdergumany stippling LM Ql (Bld)Erythrocyte basophilic stippling detectionMercer County Community HospitalBasophilic stippling LM Ql (Bld)SlightMercer County Community HospitalC reactive protein [Mass/volume] in Serum or PlasmaOrdered By: Julian Jones on 67-66-6837SXF [Mass/Vol]C reactive protein [Mass/volume] in Serum or PlasmaHigh0.0-0.[address] [place], [place] [address]CRP [Mass/Vol]7.4 mg/dLHigh0.0-0.5FProMedica Defiance Regional Hospital Myelocytes/100 WBC Manual cnt (Bld)Ordered By: Nick Wayne on 09-13-2024 Myelocytes/100 WBC (Bld)Myelocytes/100 leukocytes in Blood by Manual countHigh 00[facility] HospitalMyelocytes/100 WBC (Bld)2 %High050 Rogers StreetBand form neutrophils/100 WBC Manual cnt (Bld)Ordered By: Nick Wayne on 83-55-0812Lgzq form neutrophils/100 WBC (Bld)Peripheral white blood cell differential % bands, microscopic exam027 Hall StreetBand form neutrophils/100 WBC (Bld)1 %[address] Basophils/100 WBC Manual cnt (Bld)Ordered By: Nick Wayne on 09-12-2024 Basophils/100 WBC (Bld)Basophils/100 leukocytes in Blood by Manual count0-2 [facility] HospitalBasophils/100 WBC (Bld)1 %02FProMedica Defiance Regional HospitalCampy coli+jejuni BD MaxOrdered By: Julian Jones on 09-12-2024 C. coli+jejuni tuf gene JAYMIE+probe Ql (Stl)Campy coli+jejuni BD MaxNegative [facility] HospitalComment on above:Campylobacter test includes C. jejuni and C. coli.C. coli+jejuni tuf gene JAYMIE+probe Ql (Stl)NegativeNegative [facility] HospitalComment on above:Campylobacter test includes C. jejuni and C. coli.Clostridioides difficile toxin B tcdB gene [Presence] in Stool by JAYMIE with probe deteOrdered By: Julian Jones on 09-12-2024. difficile toxin B tcdB gene JAYMIE+probe Ql (Stl)Clostridioides difficile toxin B tcdB gene [Presence] in Stool by JAYMIE with probe deteNegativeMercer County Community HospitalComment on above:Testing performed by RT-PCRC. difficile toxin B tcdB gene JAYMIE+probe Ql (Stl)NegativeNegativeMercer County Community Hospital Comment on above:Testing performed by RT-PCRDacrocytes [Presence] in Blood by Light microscopyOrdered By: Nick Wayne on 42-75-4236Tptgxcjqbt LM Ql (Bld) Teardrop cell detectionMercer County Community HospitalDacrocytes LM Ql (Bld) [facility] HealthPoikilocytosis [Presence] in Blood by Light microscopyOrdered By: Nick Wayne on 80-53-5285Isqbevjvmmgjqs LM Ql (Bld) Poikilocytosis [Presence] in Blood by Light microscopyMercer County Community HospitalPoikilocytosis LM Ql (Bld)[facility] Salmonellosis BD MaxOrdered By: Julian Jones on 08-42-5257Mlenpuceqr sp spaO gene JAYMIE+probe Ql (Stl)Salmonella sp spaO gene [Presence] in Stool by JAYMIE with probe detectionNegativeMercer County Community HospitalComment on above:Testing performed by RT-PCRSalmonella sp spaO gene JAYMIE+probe Ql (Stl)NegativeNegative [facility] HospitalComment on above:Testing performed by RT-PCR Shigella Tox 1+2 BD MaxOrdered By: Julian Jnoes on 09-12-2024E. coli stx1+stx2 genes JAYMIE+probe Ql (Stl)Escherichia coli Stx1 and Stx2 toxin stx1+stx2 genes [Presence] in Stool by JAYMIE withNegativeMercer County Community Hospital E. coli stx1+stx2 genes JAYMIE+probe Ql (Stl)NegativeNegativeBarnesville Hospitalhigellosis BD MaxOrdered By: Julian Jones on 09-12-2024 Shigella species+EIEC invasion plasmid antigen H ipaH gene JAYMIE+probe Ql (Stl) Shigella species+EIEC invasion plasmid antigen H ipaH gene [Presence] in Stool by NAANegativeMercer County Community HospitalComment on above:Shigella sp. test includes Shigella species and Enteroinvasive E. coli (EIEC).Shigella species+EIEC invasion plasmid antigen H ipaH gene JAYMIE+probe Ql (Stl)Negative NegativeMercer County Community HospitalComment on above:Shigella sp. test includes Shigella species and Enteroinvasive E. coli (EIEC).Blood estimated average glucose determination by estimation from glycated hemoglobinOrdered By: Julian Jones on 95-28-7794Dftipqd glucose Estimated from glycated hemoglobin (Bld) [Mass/Vol]Glucose mean value [Mass/volume] in Blood Estimated from glycated hemoglobinMercer County Community HospitalAverage glucose Estimated from glycated hemoglobin (Bld) [Mass/Vol]177 mg/dLMercer County Community HospitalCreatine kinase [Enzymatic activity/volume] in Serum or PlasmaOrdered By: Makenzie Drake on 58-61-3034LI [Catalytic activity/Vol]Creatine kinase [Enzymatic activity/volume] in Serum or FkjrfiLxac93-787Tavfgytbe[address] Comment on above:Hemolysis is present at a level that could interfere with the result.CK [Catalytic activity/Vol]3169 U/CWnbt55-779IjkwdvyqgMercer County Community HospitalComment on above:Hemolysis is present at a level that could interfere with the result.Erythrocyte sedimentation rate by Photometric methodOrdered By: Julian Corona on 91-26-8829ZXL Photometric method (Bld) [Velocity]Erythrocyte sedimentation rate by Photometric methodHigh0Mer[facility] Community HospitalESR Photometric method (Bld) [Velocity]> 130 mm/hrWorcester City HospitalMercer County Community HospitalHemoglobin A1c/Hemoglobin.total in BloodOrdered By: Julian Jones on 72-65-0853UuR7i (Bld) [Mass fraction]Hemoglobin A1c percentageHigh4.3-5.6FProMedica Defiance Regional HospitalComment on above:Increased risk for diabetes: 5.7 - 6.4diabetes: >6.4glycemic control for adults with diabetes: <7.0HbA1c (Bld) [Mass fraction]7.8 %High4.3-5.6FProMedica Defiance Regional HospitalComment on above:Increased risk for diabetes: 5.7 - 6.4diabetes: >6.4glycemic control for adults with diabetes: <7.0Magnesium [Mass/volume] in Serum or PlasmaOrdered By: Nick Wayne on 99-49-8854Qpswldorl [Mass/Vol] Magnesium [Mass/volume] in Serum or Plasma1.9-2.7FProMedica Defiance Regional HospitalComment on above:Hemolysis is present at a level that could interfere with the result.Magnesium [Mass/Vol]2.2 mg/dL1.9-2.7FProMedica Defiance Regional HospitalComment on above:Hemolysis is present at a level that could interfere with the result.Phosphate [Mass/volume] in Serum or PlasmaOrdered By: Nick Wayne on 60-97-0428Fsliivjmj [Mass/Vol]Phosphate [Mass/volume] in Serum or PlasmaHigh 2.5-4.5FProMedica Defiance Regional HospitalComment on above:Hemolysis is present at a level that could interfere with the result.Phosphate [Mass/Vol]5.8 mg/dLHigh 2.5-4.5FProMedica Defiance Regional HospitalComment on above:Hemolysis is present at a level that could interfere with the result.Troponin I.cardiac [Mass/volume] in Serum or Plasma by Detection limit <= 0.01 ng/Ordered By: Makenzie Drake on 97-93-1526Ucjodeii I.cardiac DL <= 0.01 ng/mL [Mass/Vol]Troponin I.cardiac [Mass/volume] in Serum or Plasma by Detection limit <= 0.01 ng/Critically high 0-20[facility] HospitalComment on above:Critical Result : Called to and read back by: JOHANNY ROJAS at: 09/11/2024 07:25:49 by:MLGThe Troponin units of report have been changed to meet the Chest Pain Accreditation requirement, element EC5.M1l2. Troponin units are changed from pg/ml to ng/L. Also, the decimal is removed and results are in whole numbers.Troponin I.cardiac [Mass/volume] in Serum or Plasma by Detection limit <= 0.01 ng/mLOrdered By: Makenzie Drake on 94-76-9584Enpllppq I.cardiac DL <= 0.01 ng/mL [Mass/Vol]263 ng/L Critically high0-20[facility] HospitalComment on above:Critical Result : Called to and read back by: JOHANNY ROJAS at: 09/11/2024 07:25:49 by:MLGThe Troponin units of report have been changed to meet the Chest Pain Accreditation requirement, element EC5.M1l2. Troponin units are changed from pg/ml to ng/L. Also, the decimal is removed and results are in whole numbers.X- ray reportOrdered By: Leobardo Saenz on 43-74-3292Orukf reportPREMIER [place] [address] XRay Report Signed Patient: Simon Lott MR#: [id number] : 1950 Acct:[id number] Age/Sex: 74 / M ADM Date: 5 Loc: Room: [address] [place] [address] Type: ADM IN Attending Dr: Julian Jones [...] healed fracture deformity involving the second metatarsal. Txln-rp-dimdcrjj degenerative changes. Vascular calcifications. Left foot: Prior digit amputations. 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 No definite periosteal reaction or osseous erosions. Vascular calcifications.. XR/XR foot BI 3V IMPRESSION: Bilateral soft tissue swelling without radiopaque foreign body or definite soft tissue emphysema Similar sclerotic appearance of the fifth metatarsal on the right dating back [id number], could be related to chronic osteomyelitis within the appropriate clinical setting. No definite acute osseous erosions or periosteal reaction. Impression dictated by: Leobardo Saenz M.D. 09/11/2024 1:04 PM Dictation Location: [id number]-29 Transcribed By: BRIANA 09/11/24 1304 Dictated By: Leobardo Saenz MD 09/11/24 1258 Signed By: 09/11/24 1304 [facility] Work Phone: Aerobic culture with sensitivityOrdered By: Makenzie Drake on 26-80-9151Czrmkjbs identified Aer cx Nom (Unsp spec)Staphylococcus aureusAbAshtabula County Medical CenterBacteria identified Aer cx Nom (Unsp spec)Proteus mirabilisAbnUniversity Hospitals Parma Medical CenterBacteria identified Aer cx Nom (Unsp spec)Pseudomonas aeruginosaAbAshtabula County Medical CenterBacteria identified Aer cx Nom (Unsp spec)Escherichia coliAbAshtabula County Medical CenterAlanine aminotransferase [Enzymatic activity/volume] in Serum or PlasmaOrdered By: Mervin Siddiqi on 09-10-2024 ALT [Catalytic activity/Vol]Alanine aminotransferase [Enzymatic activity/volume] in Serum or Plasma7-52[facility] HospitalAlbumin [Mass/volume] in Serum or Plasma by Bromocresol green (BCG) dye binding methoOrdered By: Mervin Siddiqi on 62-44-9092Dvcrxlk BCG dye [Mass/Vol]Albumin [Mass/volume] in Serum or Plasma by Bromocresol green (BCG) dye binding metho3.5-5.7FProMedica Defiance Regional HospitalAlkaline phosphatase [Enzymatic activity/volume] in Serum or PlasmaOrdered By: Mervin Siddiqi on 67-92-8668NLT [Catalytic activity/Vol]Alkaline phosphatase [Enzymatic activity/volume] in Serum or Plasma 34-104[facility] HospitalAnisocytosis LM Ql (Bld)Ordered By: Mervin Siddiqi on 05-18-7541Eslzjsjhuaeb Ql (Bld)Anisocytosis [Presence] in Blood by Light microscopyMercer County Community HospitalAspartate aminotransferase [Enzymatic activity/volume] in Serum or PlasmaOrdered By: Mervin Siddiqi on 56-21-3990XXZ [Catalytic activity/Vol]Aspartate aminotransferase [Enzymatic activity/volume] in Serum or HrgoycMons33-88 [facility] HospitalBacteria identified Aer cx Nom (Unsp spec) Ordered By: Makenzie Drake on 40-65-7742Xhhuxuwkwan coliEscherichia coliAbmercy hospital washingtonal Barnesville Hospitaluperficial Wound CultureAbChillicothe Hospitaluperficial Wound CultureAbChillicothe Hospitalupgood samaritan hospital Wound CultureAbAshtabula County Medical Center Band form neutrophils/100 WBC Manual cnt (Bld)Ordered By: Mervin Siddiqi on 04-09-4163Kwgb form neutrophils/100 WBC (Bld)Peripheral white blood cell differential % bands, microscopic exam0-5FProMedica Defiance Regional Hospital Basophils Auto (Bld) [#/Vol]Ordered By: Mervin Siddiqi on 09-10-2024 Basophils (Bld) [#/Vol]Automated basophil countMercer County Community Hospital Basophils/100 WBC Auto (Bld)Ordered By: Mervin Siddiqi on 09-10-2024 Basophils/100 WBC (Bld)Automated basophil %[facility] Bilirubin.total [Mass/volume] in Serum or PlasmaOrdered By: Mervin Siddiqi on 90-62-9949Ntxhutepn [Mass/Vol]Bilirubin.total [Mass/volume] in Serum or PlasmaHigh0.3-1.0[facility] HospitalComment on above:Samples from patients who have taken Naproxen have shown spurious elevation in Total Bilirubin levels. A metabolite of Naproxen, O-desmethylnaproxen, has been shown to interfere with the Jeremias-Scot method for measuring Total Bilirubin. Calcium [Mass/volume] in Serum or PlasmaOrdered By: Mervin Siddiqi on 00-93-8866Bxjmnyt [Mass/Vol]Calcium [Mass/volume] in Serum or Plasma8.6-10.3 [facility] HospitalCarbon dioxide, total [Moles/volume] in Serum or PlasmaOrdered By: Mervin Siddiqi on 00-84-9600LQ9 [Moles/Vol]Carbon dioxide, total [Moles/volume] in Serum or GmwbxeTueg27.0-31.0[facility] HospitalChloride [Moles/volume] in Serum or PlasmaOrdered By: Mervin Siddiqi on 14-27-9422Svwvuood [Moles/Vol]Chloride [Moles/volume] in Serum or VwsfvkEgj76-709OjsbyqivgMercer County Community HospitalCreatine kinase [Enzymatic activity/volume] in Serum or PlasmaOrdered By: Mervin Siddiqi on 09-10-2024 CK [Catalytic activity/Vol]Creatine kinase [Enzymatic activity/volume] in Serum or JphadxDigl64-139HvihyludsMercer County Community HospitalComment on above:Hemolysis is present at a level that could interfere with the result.Lipemia is present at a level that could interfere with the result.Creatinine [Mass/volume] in Serum or PlasmaOrdered By: Mervin Siddiqi on 13-84-4846Katkxojcyk [Mass/Vol] Creatinine [Mass/volume] in Serum or PlasmaSignificant change up0.70-1.30 [facility] HospitalComment on above:Delta: 7.71 on 09/09/24- 1744ANNIE/ER, PATIENT @GETS DIALYSIS AND PATIENT IS ALSO A HARD STICK. FELTTHAT @REDRAW WOULD BE THE SAME. RELEASED RESULTS, INFORMED @CARLOS/ER OF LEVEL OF INTERFERENCEFROM HIL AND ASKEDHIM TO @NOTIFY DR. SIDDIQI, TO WHICH IS WELL AWARE. RLSEosinophils Auto (Bld) [#/Vol]Ordered By: Mervin Siddiqi on 34-88-9203Zcrujamvmgm (Bld) [#/Vol]Automated eosinophil countMercer County Community HospitalEosinophils/100 WBC Auto (Bld)Ordered By: Mervin Siddiqi on 27-34-0055Nvyvjvgytzb/100 WBC (Bld)Automated eosinophil %[facility] HospitalEosinophils/100 WBC Manual cnt (Bld)Ordered By: Mervin Siddiqi on 72-40-8718Dslrovyggmj/100 WBC (Bld)Eosinophils/100 leukocytes in Blood by Manual count1-3FProMedica Defiance Regional HospitalErythrocyte distribution width Auto (RBC) [Ratio]Ordered By: Mervin Siddiqi on 33-72-6779Ddednwiapwv distribution width (RBC) [Ratio]Erythrocyte distribution width [Ratio] by Automated qpfwaShud76.0-14.8[facility] HospitalErythrocyte morphology finding [Identifier] in BloodOrdered By: Mervin Siddiqi on 35-29-0433DYH morphology finding Nom (Bld)RBC morphologyMercer County Community HospitalGlobulin Calc (S) [Mass/Vol]Ordered By: Mervin Siddiqi on 38-49-7625Dehunhkr (S) [Mass/Vol]Serum globulin measurement by calculation (mass/volume)[facility] HospitalGlucose [Mass/volume] in Serum or PlasmaOrdered By: Mervin Siddiqi on 80-91-2410Fomvtng [Mass/Vol]Glucose [Mass/volume] in Serum or NktpytJcjb32-429XpthrircbMercer County Community Hospital Comment on above:ADA recommended reference rangeRandom Glucose Reference Range is dependent on time and content of last meal. Glucose of more than 200 mg/dL in a nonstressed, ambulatory subject supports the diagnosisof Diabetes Mellitus. Hematocrit Auto (Bld) [Volume fraction]Ordered By: Mervin Siddiqi on 20-24-2335Ysbhehhsgv (Bld) [Volume fraction]Hematocrit [Volume Fraction] of Blood by Automated helikTwb98.8-50.0[facility] HospitalHemoglobin [Mass/volume] in BloodOrdered By: Mervin Siddiqi on 20-57-2592Xeidourisd (Bld) [Mass/Vol]Hemoglobin [Mass/volume] in SunvaBar49.0-17.0[facility] HospitalLaboratory - Microbiology and Antimicrobial susceptibilityOrdered By: Mervin Siddiqi on 93-15-6622Mnjocdba identified Cx Nom (Bld)NO GROWTH 5 DAYSMercer County Community HospitalBacteria identified Cx Nom (Bld)NO GROWTH 5 DAYSMercer County Community HospitalLactate [Moles/volume] in Serum or Plasma Ordered By: Mervin Siddiqi on 47-30-1451Rrvhfdy [Moles/Vol]Lactate [Moles/volume] in Serum or Plasma0.5-1.9[facility] HospitalComment on above:Specimen hemolyzed/severely ictericLactic Acid reference range has been updated to 0.5 1.9 mmol/L and the critical range of 2.0 or greater.Lactate [Moles/Vol]See comment0.5-1.9[facility] Community HospitalComment on above: Specimen hemolyzed/severely ictericLactic Acid reference range has been updated to 0.5 1.9 mmol/L and the critical range of 2.0 or greater.Leukocytes [#/volume] corrected for nucleated erythrocytes in Blood by Automated counOrdered By: Mervin Siddiqi on 14-42-9491PNJ corrected for nucl RBC Auto (Bld) [#/Vol] Leukocytes [#/volume] corrected for nucleated erythrocytes in Blood by Automated counHigh4.1-10.5FProMedica Defiance Regional HospitalLipase [Enzymatic activity/volume] in Serum or PlasmaOrdered By: Mervin Siddiqi on 09-10-2024 Lipase [Catalytic activity/Vol]Lipase [Enzymatic activity/volume] in Serum or EfjkgtWxib23.0-82.0[facility] HospitalLipase [Catalytic activity/Vol]664.0 U/LHigh11.0-82.0[facility] HospitalLymphocytes Auto (Bld) [#/Vol]Ordered By: Mervin Siddiqi on 32-43-2131Cyauawkmwsg (Bld) [#/Vol]Lymphocytes [#/volume] in Blood by Automated countMercer County Community HospitalLymphocytes/100 WBC Auto (Bld)Ordered By: Mervin Siddiqi on 47-60-7646Gkeclxudwew/100 WBC (Bld)Lymphocytes/100 leukocytes in Blood by Automated countMercer County Community HospitalLymphocytes/100 WBC Manual cnt (Bld)Ordered By: Mervin Siddiqi on 32-10-2531Mwprvqufhys/100 WBC (Bld) Lymphocytes/100 leukocytes in Blood by Manual ushfnDbw77-83EibgdevwvNewark Hospital Auto (RBC) [Entitic mass]Ordered By: Mervin Siddiqi on 19-16-5910PGG (RBC) [Entitic mass]MCH [Entitic mass] by Automated count27.5-35.2 [facility]HC Auto (RBC) [Mass/Vol]Ordered By: Mervin Siddiqi on 82-86-0763NBNR (RBC) [Mass/Vol]MCHC [Mass/volume] by Automated count32.5-35.6FProMedica Defiance Regional HospitalMCV Auto (RBC) [Entitic vol] Ordered By: Mervin Siddiqi on 62-88-5532JRZ (RBC) [Entitic vol]MCV [Entitic volume] by Automated count83.5-101[facility] Metamyelocytes/100 WBC Manual cnt (Bld)Ordered By: Mervin Siddiqi on 87-24-7149Zzspoejcdsusgl/100 WBC (Bld)Metamyelocytes/100 leukocytes in Blood by Manual countHigh0-0[facility] HospitalMonocytes Auto (Bld) [#/Vol] Ordered By: Mervin Siddiqi on 07-93-2118Fyvyvbcvv (Bld) [#/Vol]Automated blood monocyte countMercer County Community HospitalMonocytes/100 WBC Auto (Bld)Ordered By: Mervin Siddiqi on 38-65-8381Kcicfbejh/100 WBC (Bld) Automated monocyte %[facility] HospitalMonocytes/100 WBC Manual cnt (Bld)Ordered By: Mervin Siddiqi on 25-99-5039Czpvazqrr/100 WBC (Bld) Monocytes/100 leukocytes in Blood by Manual count2-11[facility] HospitalMyelocytes/100 WBC Manual cnt (Bld)Ordered By: Mervin Siddiqi on 63-68-8786Sjjevmmlfo/100 WBC (Bld)Myelocytes/100 leukocytes in Blood by Manual countHigh0-0[facility] HospitalNeutrophils Auto (Bld) [#/Vol] Ordered By: Mervin Siddiqi on 83-36-6270Stemkygzbqe (Bld) [#/Vol]Neutrophils [#/volume] in Blood by Automated countMercer County Community Hospital Neutrophils/100 WBC Auto (Bld)Ordered By: Mervin Siddiqi on 09-10-2024 Neutrophils/100 WBC (Bld)Automated neutrophil %[facility] No Panel InformationOrdered By: Mervin Siddiqi on 95-58-9817SW GROWTH 5 DAYS [facility] HospitalEstimated GFR (CKD-EPI)12.555 mL/MinMercer County Community HospitalPharmacy Creatinine Clearance (Chem16.27[facility] HospitalNO GROWTH 5 DAYSMercer County Community Hospital Nucleated RBC/100 WBC Manual cnt (Bld) [Ratio]Ordered By: Mervin Siddiqi on 57-12-2707Tphurptns RBC/100 WBC (Bld) [Ratio]Nucleated erythrocytes/100 leukocytes [Ratio] in Blood by Manual countHigh0-0[facility] HospitalNucleated erythrocytes [Presence] in Blood by Automated countOrdered By: Mervin Siddiqi on 75-28-3773Nncjquyud RBC Auto Ql (Bld)Nucleated erythrocytes [Presence] in Blood by Automated countMercer County Community HospitalOvalocytes [Presence] in Blood by Light microscopyOrdered By: Mervin Siddiqi on 16-45-5169Mholutbrqt LM Ql (Bld)Ovalocyte detectionMercer County Community HospitalOvalocytes LM Ql (Bld)SlightMercer County Community HospitalPlatelet adequacy [Presence] in Blood by Light microscopyOrdered By: Mervin Siddiqi on 23-16-9450Dqgilnwpi LM Ql (Bld)Platelet adequacy [Presence] in Blood by Light microscopyNormParkwood Hospital Platelet mean volume Auto (Bld) [Entitic vol]Ordered By: Mervin Siddiqi on 00-69-6067Cgibrokw mean volume (Bld) [Entitic vol]Platelet mean volume [Entitic volume] in Blood by Automated count6.6-10.1FProMedica Defiance Regional Hospital Platelet morphology finding [Identifier] in BloodOrdered By: Mervin Siddiqi on 57-12-9134Hdxhaivf morphology finding Nom (Bld)Platelet morphology finding [Identifier] in BloodMercer County Community HospitalPlatelets Auto (Bld) [#/Vol]Ordered By: Mervin Siddiqi on 97-23-9837Huheoxqzr (Bld) [#/Vol] Platelets [#/volume] in Blood by Automated -122RehiqlpuwMercer County Community HospitalPlatelets Large [Presence] in Blood by Light microscopyOrdered By: Mervin Siddiqi on 79-27-0237Xrjvelzvg Large LM Ql (Bld)Platelets Large [Presence] in Blood by Light microscopyMercer County Community Hospital Polychromasia [Presence] in Blood by Light microscopyOrdered By: Mervin Siddiqi on 22-65-8848Kzxouvphyptuz LM Ql (Bld)Polychromasia [Presence] in Blood by Light microscopyMercer County Community HospitalPotassium [Moles/volume] in Serum or PlasmaOrdered By: Mervin Siddiqi on 09-10-2024 Potassium [Moles/Vol]Potassium [Moles/volume] in Serum or PlasmaLow3.5-5.1 [facility] HospitalProtein [Mass/volume] in Serum or PlasmaOrdered By: Mervin Siddiqi on 59-03-0606Yisxgyu [Mass/Vol]Protein [Mass/volume] in Serum or PlasmaHigh6.4-8.9[facility] HospitalRBC Auto (Bld) [#/Vol]Ordered By: Mervin Siddiqi on 32-02-9303QET (Bld) [#/Vol]Erythrocytes [#/volume] in Blood by Automated countLow3.90-5.60Barn[facility]ville Hospitalegmented neutrophils/100 WBC Manual cnt (Bld)Ordered By: Mervin Siddiqi on 53-52-1237Jypjwxjxn neutrophils/100 WBC (Bld)Manual blood segmented neutrophils/100 mevuwlfqexNzgf61-99VkkgildiyMercer County Community Hospital Serum or plasma albumin/globulin mass ratioOrdered By: Mervin Siddiqi on 00-15-0215Rzrzhjy/Globulin [Mass ratio]Serum or plasma albumin/globulin mass ratioBarnesville Hospitalerum or plasma anion gap determination Ordered By: Mervin Siddiqi on 22-41-3223Gvkws gap [Moles/Vol]Serum or plasma anion gap determination6.0-15.0Barnesville Hospitalodium [Moles/volume] in Serum or PlasmaOrdered By: Mervin Siddiqi on 09-10-2024 Sodium [Moles/Vol]Sodium [Moles/volume] in Serum or EkolweSaj081-258UmbhaejneMercer County Community HospitalTarget cells [Presence] in Blood by Light microscopy Ordered By: Mervin Siddiqi on 89-65-1888Zxoesg cells LM Ql (Bld)Target cells [facility] HospitalTroponin I.cardiac [Mass/volume] in Serum or Plasma by Detection limit <= 0.01 ng/Ordered By: Mervin Siddiqi on 55-42-4067Dmkzmmca I.cardiac DL <= 0.01 ng/mL [Mass/Vol]Troponin I.cardiac [Mass/volume] in Serum or Plasma by Detection limit <= 0.01 ng/Critically high 0-20[facility] HospitalComment on above:Critical Result : Called to and read back by: UZMA PERLA at: 09/10/2024 20:07:56 by:[id number] T roponin units of report have been changed to meet the Chest Pain Accreditation requirement, elementEC5.M1l2. Troponin units are changed from pg/ml to ng/L. Also, the decimal is removed and results are in whole numbers.Urea nitrogen [Mass/volume] in Serum or PlasmaOrdered By: Mervin Siddiqi on 85-55-9484Idbn nitrogen [Mass/Vol]Urea nitrogen [Mass/volume] in Serum or PlasmaHigh7-25 [facility] HospitalWBC Auto (Bld) [#/Vol]Ordered By: Mervin Siddiqi on 18-81-6754YZK (Bld) [#/Vol]Leukocytes [#/volume] in Blood by Automated countHigh4.1-10.5FProMedica Defiance Regional HospitalX-ray reportOrdered By: Fawad Nicholson on 37-30-3182Hgxbx reportPREMIER [place] [address] XRay Report Signed Patient: Simon Lott MR#: [id number] : 1950 Acct:[id number] Age/Sex: 74 / M ADM Date: 5 Loc: ER Room: Type: PRE ER Attending Dr: Copies to: Mervin Siddiqi DO~ Ordering Provider: Mervin Siddiqi DO Date of Service: 09/10/24 XR/XR chest [...] Nicholson M.D. 09/10/2024 6:24 PM Dictation Location: RADIO-PC-20 Transcribed By: [facility] 09/10/241823 Dictated By: Fawad Nicholson DO 09/10/241823 Signed By: 09/10/241823 [facility] HospitalAlanine aminotransferase [Enzymatic activity/volume] in Serum or PlasmaOrdered By: Mervin Siddiqi on 09-09-2024 ALT [Catalytic activity/Vol]Alanine aminotransferase [Enzymatic activity/volume] in Serum or Plasma[address] [place], [place] [address]Comment on above: Hemolysis is present at a level that could interfere with the result.Lipemia is present at a level that could interfere with the result.ALT [Catalytic activity/Vol]30 U/L72 [address]endez StreetComment on above: Hemolysis is present at a level that could interfere with the result.Lipemia is present at a level that could interfere with the result.Albumin [Mass/volume] in Serum or Plasma by Bromocresol green (BCG) dye binding methoOrdered By: Mervin Siddiqi on 57-60-9890Czxjdly BCG dye [Mass/Vol]Albumin [Mass/volume] in Serum or Plasma by Bromocresol green (BCG) dye binding metho3.5-5.7FProMedica Defiance Regional HospitalComment on above:Lipemia is present at a level that could interfere with the result.Hemolysis is present at a level that could interfere with the result.Albumin BCG dye [Mass/Vol]4.4 g/dL3.5-5.7FProMedica Defiance Regional HospitalComment on above:Lipemia is present at a level that could interfere with the result.Hemolysis is present at a level that could interfere with the result.Alkaline phosphatase [Enzymatic activity/volume] in Serum or PlasmaOrdered By: Mervin Siddiqi on 96-52-5079YQG [Catalytic activity/Vol] Alkaline phosphatase [Enzymatic activity/volume] in Serum or Jlopol50-321 [facility] HospitalComment on above:Hemolysis is present at a level that could interfere with the result.Lipemia is present at a level that could interfere with the result.ALP [Catalytic activity/Vol]82 U/L34-104 [facility] HospitalComment on above:Hemolysis is present at a level that could interfere with the result.Lipemia is present at a level that could interfere with the result.Anisocytosis LM Ql (Bld)Ordered By: Mervin Siddiqi on 90-36-5934Dijsezjhnkdf Ql (Bld)Anisocytosis [Presence] in Blood by Light microscopyMercer County Community HospitalAnisocytosis Ql (Bld) ModerateMercer County Community HospitalAspartate aminotransferase [Enzymatic activity/volume] in Serum or PlasmaOrdered By: Mervin Siddiqi on 09-09-2024 AST [Catalytic activity/Vol]Aspartate aminotransferase [Enzymatic activity/volume] in Serum or GikbhcZvhi70-40PwaggubmmMercer County Community Hospital Comment on above:Hemolysis is present at a level that could interfere with the result.Lipemia is present at a level that could interfere with the result.AST [Catalytic activity/Vol]308 U/QXeho04-75VxwvwqdtlMercer County Community HospitalComment on above:Hemolysis is present at a level that could interfere with the result.Lipemia is present at a level that could interfere with the result.Band form neutrophils/100 WBC Manual cnt (Bld)Ordered By: Mervin Siddiqi on 77-56-7259Jvjt form neutrophils/100 WBC (Bld)Peripheral white blood cell differential % bands, microscopic exam0-5FProMedica Defiance Regional HospitalBand form neutrophils/100 WBC (Bld)4 %0-5FProMedica Defiance Regional HospitalBasophils Auto (Bld) [#/Vol]Ordered By: Mervin Siddiqi on 59-01-2141Dcsejimlz (Bld) [#/Vol]Automated basophil countMercer County Community HospitalBasophils (Bld) [#/Vol]N/[facility] CenterBasophils/100 WBC Auto (Bld)Ordered By: Mervin Siddiqi on 06-49-7244Fmnrsfhfv/100 WBC (Bld)Automated basophil % [facility] HospitalBasophils/100 WBC (Bld)N/[facility] CenterBasophils/100 WBC Manual cnt (Bld)Ordered By: Mervin Siddiqi on 08-73-2319Vfzlmkmfn/100 WBC (Bld)Basophils/100 leukocytes in Blood by Manual count0-2FProMedica Defiance Regional HospitalBasophils/100 WBC (Bld)0 %0-2FProMedica Defiance Regional HospitalBilirubin.total [Mass/volume] in Serum or PlasmaOrdered By: Mervin Siddiqi on 02-12-4174Ymkhtawsd [Mass/Vol]Bilirubin.total [Mass/volume] in Serum or PlasmaHigh0.3-1.0[facility] Comment on above:Lipemia is present at a level that could interfere with the result.Hemolysis is present at a level that could interfere with the result.Samples from patients who have taken Naproxen have shown spurious elevation in Total Bilirubin levels. A metabolite of Naproxen, O- desmethylnaproxen, has been shown to interfere with the Jendrassik-Grof method for measuring Total Bilirubin.Bilirubin [Mass/Vol]2.1 mg/dLHigh0.3-1.0[facility] HospitalComment on above:Lipemia is present at a level that could interfere with the result.Hemolysis is present at a level that could interfere with the result.Samples from patients who have taken Naproxen have shown spuriou s elevation in Total Bilirubin levels. A metabolite of Naproxen, O- desmethylnaproxen, has been shown to interfere with the Jendrassik-Grof method for measuring Total Bilirubin.Calcium [Mass/volume] in Serum or PlasmaOrdered By: Mervin Siddiqi on 99-78-6494Zqkpjfj [Mass/Vol]Calcium [Mass/volume] in Serum or Plasma8.6-10.3FProMedica Defiance Regional HospitalComment on above: Hemolysis is present at a level that could interfere with the result.Lipemia is present at a level that could interfere with the result.Calcium [Mass/Vol]9.0 mg/dL8.6-10.3FWestern Reserve Hospitalment on above:Hemolysis is present at a level that could interfere with the result.Lipemia is present at a level that could interfere with the result.Carbon dioxide, total [Moles/volume] in Serum or PlasmaOrdered By: Mervin Siddiqi on 11-75-5880XK1 [Moles/Vol] Carbon dioxide, total [Moles/volume] in Serum or RqyphtArok35.0-31.0[facility] HospitalComment on above:Hemolysis is present at a level that could interfere with the result.Lipemia is present at a level that could interfere with the result.CO2 [Moles/Vol]33.2 mmol/LHigh21.0-31.0[facility] HospitalCombeaumont hospital on above:Hemolysis is present at a level that could interfere with the result.Lipemia is present at a level that could interfere with the result.Chloride [Moles/volume] in Serum or PlasmaOrdered By: Mervin Siddiqi on 93-90-2289Hqgpkncw [Moles/Vol]Chloride [Moles/volume] in Serum or HtnwdmQsu44-551MtyaegudqMercer County Community HospitalComment on above: Lipemia is present at a level that could interfere with the result.Hemolysis is present at a level that could interfere with the result.Chloride [Moles/Vol]88 mmol/FJry97-138CbgvozejzMercer County Community HospitalCombeaumont hospital on above:Lipemia is present at a level that could interfere with the result.Hemolysis is present at a level that could interfere with the result.Creatinine [Mass/volume] in Serum or PlasmaOrdered By: Mervin Siddiqi on 06-09-1075Utdlbljial [Mass/Vol] Creatinine [Mass/volume] in Serum or PlasmaHigh0.70-1.30[facility] HospitalCombeaumont hospital on above:Hemolysis is present at a level that could interfere with the result.Lipemia is present at a level that could interfere with the result.Creatinine [Mass/Vol]7.71 mg/dLHigh0.70-1.30[facility] HospitalComment on above:Hemolysis is present at a level that could interfere with the result.Lipemia is present at a level that could interfere with the result.Dacrocytes [Presence] in Blood by Light microscopyOrdered By: Mervin Siddiqi on 34-62-6902Aaxjocavdg LM Ql (Bld)Teardrop cell detection [facility] HospitalDacrocytes LM Ql (Bld)SlightMercer County Community HospitalEosinophils Auto (Bld) [#/Vol]Ordered By: Mervin Siddiqi on 63-95-2007Qlisjvfllrw (Bld) [#/Vol]Automated eosinophil countMercer County Community HospitalEosinophils (Bld) [#/Vol]N/[facility] Eosinophils/100 WBC Auto (Bld)Ordered By: Mervin Siddiqi on 09-09-2024 Eosinophils/100 WBC (Bld)Automated eosinophil %[facility] Eosinophils/100 WBC (Bld)N/[facility] CenterEosinophils/100 WBC Manual cnt (Bld)Ordered By: Mervin Siddiqi on 31-76-5153Rjaoobtpmsd/100 WBC (Bld)Eosinophils/100 leukocytes in Blood by Manual count1-3FProMedica Defiance Regional HospitalEosinophils/100 WBC (Bld)1 %1-3FProMedica Defiance Regional Hospital Erythrocyte distribution width Auto (RBC) [Ratio]Ordered By: Mervin Siddiqi on 33-85-6036Igyzladagdm distribution width (RBC) [Ratio]Erythrocyte distribution width [Ratio] by Automated filfnDvfa46.0-14.8[facility] HospitalErythrocyte distribution width (RBC) [Ratio]16.7 %High12.0-14.8 [facility] HospitalErythrocyte morphology finding [Identifier] in BloodOrdered By: Mervin Siddiqi on 44-67-8520AYF morphology finding Nom (Bld)RBC morphologyMercer County Community HospitalRBC morphology finding Nom (Bld)N/[facility] Medical CenterGlobulin Calc (S) [Mass/Vol]Ordered By: Mervin Siddiqi on 92-95-6825Ceiztnpx (S) [Mass/Vol]Serum globulin measurement by calculation (mass/volume)[facility] Globulin (S) [Mass/Vol]5.7 g/dLMercer County Community HospitalGlucose [Mass/volume] in Serum or PlasmaOrdered By: Mervin Siddiqi on 09-09-2024 Glucose [Mass/Vol]Glucose [Mass/volume] in Serum or BqfibqSmdk52-434SqxcejblbMercer County Community HospitalComment on above:Lipemia is present at a level that could interfere with the result.Hemolysis is present at a level that could interfere with the result.ADA recommended reference rangeRandom Glucose Reference Range is dependent on time and content of last meal. Glucose of more than 200 mg/dL in a nonstressed, ambulatory subject supports the diagnosis of Diabetes Mellitus. Glucose [Mass/Vol]159 mg/gVNinc22-692PwuzfnexcMercer County Community HospitalComment on above:Lipemia is present at a level that could interfere with the result.Hemolysis is present at a level that could interfere with the result.ADA recommended reference rangeRandom Glucose Reference Range is dependent on time and content of last meal. Glucose of more than 200 mg/dL in a nonstressed, ambulatory subject supports the diagnosis of Diabetes Mellitus.Hematocrit Auto (Bld) [Volume fraction]Ordered By: Mervin Siddiqi on 36-75-5550Lcplprxmtk (Bld) [Volume fraction]Hematocrit [Volume Fraction] of Blood by Automated count Low38.8-50.0[facility] HospitalHematocrit (Bld) [Volume fraction] 27.4 %Low38.8-50.0[facility] HospitalHemoglobin [Mass/volume] in BloodOrdered By: Mervin Siddiqi on 58-77-4833Fcfaszbcgt (Bld) [Mass/Vol] Hemoglobin [Mass/volume] in HbyizOkf79.0-17.0[facility] Hemoglobin (Bld) [Mass/Vol]10.0 g/dLLow13.0-17.0[facility] HospitalLeukocytes [#/volume] corrected for nucleated erythrocytes in Blood by Automated counOrdered By: Mervin Siddiqi on 24-16-0609NGO corrected for nucl RBC Auto (Bld) [#/Vol]Leukocytes [#/volume] corrected for nucleated erythrocytes in Blood by Automated counHigh4.1-10.5FProMedica Defiance Regional HospitalWBC corrected for nucl RBC Auto (Bld) [#/Vol]25.1 10*3/uLHigh4.1-10.5 [facility] HospitalLipase [Enzymatic activity/volume] in Serum or PlasmaOrdered By: Mervin Siddiqi on 77-22-2382Xlsvvx [Catalytic activity/Vol]Lipase [Enzymatic activity/volume] in Serum or ZvpgarBbvw47.0-82.0 [facility] HospitalComment on above:Lipemia is present at a level that could interfere with the result.Hemolysis is present at a level that could interfere with the result.Lipase [Catalytic activity/Vol]1167.0 U/LHigh11.0-82.0 [facility] HospitalComment on above:Lipemia is present at a level that could interfere with the result.Hemolysis is present at a level that could interfere with the result.Lymphocytes Auto (Bld) [#/Vol]Ordered By: Mervin Siddiqi on 00-43-2286Kevfpiqmrjm (Bld) [#/Vol]Lymphocytes [#/volume] in Blood by Automated countMercer County Community HospitalLymphocytes (Bld) [#/Vol]N/[facility] CenterLymphocytes/100 WBC Auto (Bld)Ordered By: Mervin Siddiqi on 57-83-7411Eyqkzdyijjx/100 WBC (Bld)Lymphocytes/100 leukocytes in Blood by Automated countMercer County Community Hospital Lymphocytes/100 WBC (Bld)N/[facility] CenterLymphocytes/100 WBC Manual cnt (Bld)Ordered By: Mervin Siddiqi on 97-58-0508Wzpnrrtlyvy/100 WBC (Bld)Lymphocytes/100 leukocytes in Blood by Manual owntoBxu52-86SujgitxpoMercer County Community HospitalLymphocytes/100 WBC (Bld)10 %Hkg62-14SeegdfhloNewark Hospital Auto (RBC) [Entitic mass]Ordered By: Mervin Siddiqi on 18-42-9323HHJ (RBC) [Entitic mass]MCH [Entitic mass] by Automated countHigh 27.5-35.2FMercy Memorial Hospital (RBC) [Entitic mass]36.7 pgHigh 27.5-35.2FOhioHealth Southeastern Medical Center Auto (RBC) [Mass/Vol]Ordered By: Mervin Siddiqi on 51-87-8134HNJT (RBC) [Mass/Vol]MCHC [Mass/volume] by Automated srmtyUafi86.5-35.6FProMedica Defiance Regional HospitalMCHC (RBC) [Mass/Vol]36.3 g/eVIcee18.5-35.6FProMedica Defiance Regional HospitalMCV Auto (RBC) [Entitic vol]Ordered By: Mervin Siddiqi on 97-45-8928NRJ (RBC) [Entitic vol] MCV [Entitic volume] by Automated oaumqLjcr11.5-101[facility] HospitalMCV (RBC) [Entitic vol]101.1 mMHwai65.5-101[facility] HospitalMacrocytes LM Ql (Bld)Ordered By: Mervin Siddiqi on 09-09-2024 Macrocytes Ql (Bld)Macrocytes [Presence] in Blood by Light microscopyMercer County Community HospitalMacrocytes Ql (Bld)SlightMercer County Community HospitalMonocyte distribution width [Entitic volume] in Blood by AutomatedOrdered By: Mervin Siddiqi on 96-68-3530Jfanmtcw distribution width Auto (Bld) [Entitic vol]Monocyte distribution width [Entitic volume] in Blood by Automated High0.00-20.00[facility] HospitalComment on above:The predictive value of MDW for identifying sepsis in patients with hematological abnormalities hasnot been establishedMonocyte distribution width Auto (Bld) [Entitic vol]29.89 %High0.00-20.00[facility] HospitalComment on above:The predictive value of MDW for identifying sepsis in patients with hematological abnormalities hasnot been establishedMonocytes Auto (Bld) [#/Vol]Ordered By: Mervin Siddiqi on 08-37-6943Pqguxdvvk (Bld) [#/Vol]Automated blood monocyte count [facility] HospitalMonocytes (Bld) [#/Vol]N/[facility] CenterMonocytes/100 WBC Auto (Bld)Ordered By: Mervin Siddiqi on 60-22-8506Rycfwsttw/100 WBC (Bld)Automated monocyte %[facility] HospitalMonocytes/100 WBC (Bld)N/[facility] CenterMonocytes/100 WBC Manual cnt (Bld)Ordered By: Mervin Siddiqi on 53-82-5593Jgojxpsyr/100 WBC (Bld)Monocytes/100 leukocytes in Blood by Manual count234 Robinson StreetMonocytes/100 WBC (Bld)5 %[address] Neutrophils Auto (Bld) [#/Vol]Ordered By: Mervin Siddiqi on 09-09-2024 Neutrophils (Bld) [#/Vol]Neutrophils [#/volume] in Blood by Automated count [facility] HospitalNeutrophils (Bld) [#/Vol]N/[facility] CenterNeutrophils/100 WBC Auto (Bld)Ordered By: Mervin Siddiqi on 63-29-5026Ayohyegobio/100 WBC (Bld)Automated neutrophil %[facility] HospitalNeutrophils/100 WBC (Bld)N/[facility] CenterNo Panel InformationOrdered By: Mervin Siddiqi on 74-75-4678Zekzmnghm GFR (CKD-EPI)6.809 mL/[facility]Ph[facility] Creat[facility] Clear[facility] (Chem[address] [place], [place] [address].809 mL/[facility] [place], [place] [address]Nucleated RBC/100 WBC Manual cnt (Bld) [Ratio]Ordered By: Mervin Siddiqi on 09-09-2024 Nucleated RBC/100 WBC (Bld) [Ratio]Nucleated erythrocytes/100 leukocytes [Ratio] in Blood by Manual countHigh050 Rogers StreetNucleated RBC/100 WBC (Bld) [Ratio]3 /100{WBC}High[address] Nucleated erythrocytes [Presence] in Blood by Automated countOrdered By: Mervin Siddiqi on 40-56-2775Eqelrzoch RBC Auto Ql (Bld)Nucleated erythrocytes [Presence] in Blood by Automated countMercer County Community HospitalNucleated RBC Auto Ql (Bld)N/[facility] CenterPlatelet adequacy [Presence] in Blood by Light microscopyOrdered By: Mervin Siddiqi on 75-13-3901Prvwtghvt LM Ql (Bld)Platelet adequacy [Presence] in Blood by Light microscopyNormalMercer County Community HospitalPlatelets LM Ql (Bld)Normal NormalMercer County Community HospitalPlatelet mean volume Auto (Bld) [Entitic vol]Ordered By: Mervin Siddiqi on 18-95-3870Pxgfqlzb mean volume (Bld) [Entitic vol]Platelet mean volume [Entitic volume] in Blood by Automated count High6.6-10.1FSt. Anthony's Hospitallet mean volume (Bld) [Entitic vol]10.3 fLHigh6.6-10.1FSt. Anthony's Hospitallet morphology finding [Identifier] in BloodOrdered By: Mervin Siddiqi on 09-09-2024 Platelet morphology finding Nom (Bld)Platelet morphology finding [Identifier] in BloodTriHealth Good Samaritan Hospitallet morphology finding Nom (Bld)N/A [facility] HospitalPlatelets Auto (Bld) [#/Vol]Ordered By: Mervin Siddiqi on 48-02-9325Uxhouupnr (Bld) [#/Vol]Platelets [#/volume] in Blood by Automated -259KbshcylkqMercer County Community HospitalPlatelets (Bld) [#/Vol] 260 10*3/dV678-862EutuzxsmzMercer County Community HospitalPoikilocytosis [Presence] in Blood by Light microscopyOrdered By: Mervin Siddiqi on 09-09-2024 Poikilocytosis LM Ql (Bld)Poikilocytosis [Presence] in Blood by Light microscopy [facility] HospitalPoikilocytosis LM Ql (Bld)SlightMercer County Community HospitalPolychromasia [Presence] in Blood by Light microscopy Ordered By: Mervin Siddiqi on 81-26-3391Vpjjeilkoroeq LM Ql (Bld) Polychromasia [Presence] in Blood by Light microscopyMercer County Community HospitalPolychromasia LM Ql (Bld)[facility] HealthPotassium [Moles/volume] in Serum or PlasmaOrdered By: Mervin Siddiqi on 09-09-2024 Potassium [Moles/Vol]Potassium [Moles/volume] in Serum or Plasma3.5-5.1FProMedica Defiance Regional HospitalComment on above:Lipemia is present at a level that could interfere with the result.Hemolysis is present at a level that could interfere with the result.Potassium [Moles/Vol]3.9 mmol/L3.5-5.1FProMedica Defiance Regional HospitalComment on above:Lipemia is present at a level that could interfere with the result.Hemolysis is present at a level that could interfere with the result.Protein [Mass/volume] in Serum or PlasmaOrdered By: Mervin Siddiqi on 37-82-4917Kfgomza [Mass/Vol]Protein [Mass/volume] in Serum or PlasmaHigh6.4-8.9[facility] HospitalComment on above:Lipemia is present at a level that could interfere with the result.Hemolysis is present at a level that could interfere with the result.Protein [Mass/Vol]10.1 g/dLHigh 6.4-8.9[facility] HospitalComment on above:Lipemia is present at a level that could interfere with the result.Hemolysis is present at a level that could interfere with the result.RBC Auto (Bld) [#/Vol]Ordered By: Mervin Siddiqi on 59-06-3441HJM (Bld) [#/Vol]Erythrocytes [#/volume] in Blood by Automated countLow3.90-5.60[facility] HospitalRBC (Bld) [#/Vol] 2.71 10*6/uLLow3.90-5.60[facility] Hospitalegmented neutrophils/100 WBC Manual cnt (Bld)Ordered By: Mervin Siddiqi on 09-09-2024 Segmented neutrophils/100 WBC (Bld)Manual blood segmented neutrophils/100 mcpwyxlinaPjal96-35KlprtsxjgBarnesville Hospitalegmented neutrophils/100 WBC (Bld)78 %Zlqi53-15GyvvrsryyBarnesville Hospitalerum or plasma albumin/globulin mass ratioOrdered By: Mervin Siddiqi on 09-09-2024 Albumin/Globulin [Mass ratio]Serum or plasma albumin/globulin mass ratio [facility] HospitalAlbumin/Globulin [Mass ratio]0.8 {ratio} [facility]ville Hospitalerum or plasma anion gap determinationOrdered By: Mervin Siddiqi on 02-36-3290Qxavu gap [Moles/Vol]Serum or plasma anion gap determination6.0-15.0[facility] HospitalAnion gap [Moles/Vol] 12.7 mmol/L6.0-15.0[facility]ville Hospitalodium [Moles/volume] in Serum or PlasmaOrdered By: Mervin Siddiqi on 48-61-0399Szfaam [Moles/Vol] Sodium [Moles/volume] in Serum or PcomzlFvd978-876WjwsdwujqMercer County Community HospitalComment on above:Lipemia is present at a level that could interfere with the result.Hemolysis is present at a level that could interfere with the result. Sodium [Moles/Vol]130 mmol/ERjp353-168EnpnxrucaMercer County Community HospitalComment on above:Lipemia is present at a level that could interfere with the result.Hemolysis is present at a level that could interfere with the result.Urea nitrogen [Mass/volume] in Serum or PlasmaOrdered By: Mervin Siddiqi on 99-27-8664Djch nitrogen [Mass/Vol]Urea nitrogen [Mass/volume] in Serum or Plasma High7-25[facility] HospitalComment on above:Lipemia is present at a level that could interfere with the result.Hemolysis is present at a level t hat could interfere with the result.Urea nitrogen [Mass/Vol]53 mg/dLHigh7-25 [facility] HospitalComment on above:Lipemia is present at a level that could interfere with the result.Hemolysis is present at a level that could interfere with the result.Variant lymphocytes/100 WBC Manual cnt (Bld)Ordered By: Mervin Siddiqi on 92-14-4292Quntamq lymphocytes/100 WBC (Bld)Variant lymphocytes/100 leukocytes in Blood by Manual count0-12[facility] HospitalVariant lymphocytes/100 WBC (Bld)1 %0-12[facility] HospitalWBC Auto (Bld) [#/Vol]Ordered By: Mervin Sididqi on 79-59-2196IXI (Bld) [#/Vol]Leukocytes [#/volume] in Blood by Automated countHigh4.1-10.5 [facility] HospitalWBC (Bld) [#/Vol]25.1 10*3/uLHigh4.1-10.5 [facility] HospitalWBC other/100 WBC Manual cnt (Bld)Ordered By: Mervin Siddiqi on 29-97-4706ZSS other/100 WBC (Bld)Leukocytes other/100 leukocytes in Blood by Manual countHigh00[facility] HospitalWBC other/100 WBC (Bld)1 %High00[facility] HospitalNo Panel InformationOrdered By: Liam Gayle on 27-74-7581Ymdzancjfjwdh Pathology TestSee commentMercer County Community HospitalComment on above:See report. Scanned copy available in EMR.Alanine aminotransferase [Enzymatic activity/volume] in Serum or PlasmaOrdered By: Mervat Santiago on 81-27-3270WLU [Catalytic activity/Vol]12 U/L7-52[facility] HospitalAlbumin [Mass/volume] in Serum or Plasma by Bromocresol green (BCG) dye binding metho Ordered By: Mervat Santiago on 85-00-4421Unxofij BCG dye [Mass/Vol]4.2 g/dL3.5-5.7 [facility] HospitalAlkaline phosphatase [Enzymatic activity/volume] in Serum or PlasmaOrdered By: Mervat Santiago on 77-58-3903EYL [Catalytic activity/Vol]111 U/CPsdl92-175VjopevvpkMercer County Community Hospital Aspartate aminotransferase [Enzymatic activity/volume] in Serum or PlasmaOrdered By: Mervat Santiago on 31-21-0677EDE [Catalytic activity/Vol]22 U/U84-14JpjlfwrwcMercer County Community HospitalBasophils Auto (Bld) [#/Vol]Ordered By: Mervat Santiago on 79-20-6304Uywimlsuj (Bld) [#/Vol]0.1 10*3/uL0.0-0.2FProMedica Defiance Regional HospitalBasophils/100 WBC Auto (Bld)Ordered By: Mervat Santiago on 12-30-2023 Basophils/100 WBC (Bld)0.9 %.[facility] HospitalBilirubin.total [Mass/volume] in Serum or PlasmaOrdered By: Mervat Santiago on 70-43-3034Ubivlgbpu [Mass/Vol]0.4 mg/dL0.3-1.0[facility] HospitalCalcium [Mass/volume] in Serum or PlasmaOrdered By: Mervat Santiago on 12-47-1057Brajqaw [Mass/Vol]10.6 mg/dLHigh8.6-10.3FProMedica Defiance Regional HospitalCarbon dioxide, total [Moles/volume] in Serum or PlasmaOrdered By: Mervat Santiago on 39-47-5124VZ8 [Moles/Vol]29.2 mmol/L21.0-31.0[facility] HospitalChloride [Moles/volume] in Serum or PlasmaOrdered By: Mervat Santiago on 20-24-0978Rnzymtqy [Moles/Vol]90 mmol/LSur40-062JukpdweoeMercer County Community HospitalCholesterol [Mass/volume] in Serum or PlasmaOrdered By: Mervat Santiago on 12-30-2023 Cholesterol [Mass/Vol]141 mg/wM658-754PljdlqxxzMercer County Community HospitalComment on above:Chol less than 200 mg/dl low riskChol 201-239 mg/dl borderline riskChol 240 mg/dl and greater high riskCholesterol in LDL Calc [Mass/Vol]Ordered By: Mervat Santiago on 45-97-5953Nzckurzmmfi in LDL [Mass/Vol]38 mg/dL0-100Mer[facility] HospitalComment on above:LDL ATP III CLASSIFICATIONLDL less than 100 mg/dL OptimalLDL 100-129 mg/dL Near or above utgnwyfSCJ064-634 mg/dL Borderline highLDL 160-189 mg/dL HighLDL greater than 189 mg/dL Very high Cholesterol in VLDL Calc [Mass/Vol]Ordered By: Mervat Santiago on 12-30-2023 Cholesterol in VLDL [Mass/Vol]47 mg/dLMercer County Community Hospital Creatinine [Mass/volume] in Serum or PlasmaOrdered By: Mervat Santiago on 59-63-5387Szpkikscns [Mass/Vol]6.14 mg/dLHigh0.70-1.30[facility] HospitalEosinophils Auto (Bld) [#/Vol]Ordered By: Mervat Santiago on 12-30-2023 Eosinophils (Bld) [#/Vol]0.5 10*3/uLHigh0.0-0.45[facility] HospitalEosinophils/100 WBC Auto (Bld)Ordered By: Mervat Santiago on 12-30-2023 Eosinophils/100 WBC (Bld)2.8 %.[facility] HospitalErythrocyte distribution width Auto (RBC) [Ratio]Ordered By: Mervat Santiago on 12-30-2023 Erythrocyte distribution width (RBC) [Ratio]16.9 %High12.0-14.8[facility] HospitalGlobulin Calc (S) [Mass/Vol]Ordered By: Mervat Santiago on 13-91-8727Wnmyqebi (S) [Mass/Vol]5.1 g/dLMercer County Community Hospital Glucose [Mass/volume] in Serum or PlasmaOrdered By: Mervat Santiago on 12-30-2023 Glucose [Mass/Vol]169 mg/kCPygu74-304XkphfmdhiMercer County Community HospitalComment on above:ADA recommended reference rangeRandom Glucose Reference Range is dependent on time and content of last meal. Glucose of more than 200 mg/dL in a nonstressed, ambulatory subject supports the diagnosisof Diabetes Mellitus. Hematocrit Auto (Bld) [Volume fraction]Ordered By: Mervat Santiago on 12-30-2023 Hematocrit (Bld) [Volume fraction]39.8 %38.8-50.0[facility] HospitalHemoglobin [Mass/volume] in BloodOrdered By: Mervat Santiago on 12-30-2023 Hemoglobin (Bld) [Mass/Vol]13.0 g/dL13.0-17.0[facility] Leukocytes [#/volume] corrected for nucleated erythrocytes in Blood by Automated counOrdered By: Mervat Santiago on 30-39-2955FXS corrected for nucl RBC Auto (Bld) [#/Vol]16.3 10*3/uLHigh4.1-10.5FProMedica Defiance Regional HospitalLymphocytes Auto (Bld) [#/Vol]Ordered By: Mervat Santiago on 62-52-0845Inpwowwrvmp (Bld) [#/Vol]5.2 10*3/uLHigh1.00-4.8[facility] HospitalLymphocytes/100 WBC Auto (Bld)Ordered By: Mervat Santiago on 17-58-7156Chybbmqdzxe/100 WBC (Bld) 31.7 %.[facility] HospitalMCH Auto (RBC) [Entitic mass]Ordered By: Mervat Santiago on 91-29-3757ZJM (RBC) [Entitic mass]32.3 pg27.5-35.2FProMedica Defiance Regional HospitalMCHC Auto (RBC) [Mass/Vol]Ordered By: Mervat Santiago on 16-28-7658HMMP (RBC) [Mass/Vol]32.5 g/dL32.5-35.6FProMedica Defiance Regional HospitalMCV Auto (RBC) [Entitic vol]Ordered By: Mervat Santiago on 86-06-4360JNI (RBC) [Entitic vol]99.1 fL83.5-101[facility] HospitalMonocytes Auto (Bld) [#/Vol]Ordered By: Mervat Santiago on 31-02-3606Gmtublezf (Bld) [#/Vol] 1.5 10*3/uLHigh0.0-0.8[facility] HospitalMonocytes/100 WBC Auto (Bld)Ordered By: Mervat Santiago on 90-63-4048Wkqieyyjs/100 WBC (Bld)9.5 %. [facility] HospitalNeutrophils Auto (Bld) [#/Vol]Ordered By: Mervat Santiago on 19-77-4231Rbmrqtldxdj (Bld) [#/Vol]9.0 10*3/uLHigh1.8-7.7FProMedica Defiance Regional HospitalNeutrophils/100 WBC Auto (Bld)Ordered By: Mervat Santiago on 91-61-4011Ntksvofpauz/100 WBC (Bld)55.1 %.[facility] HospitalNo Panel InformationOrdered By: Mervat Santiago on 66-68-3512Xutenlltm GFR (CKD-EPI) 9.004 mL/MinMercer County Community HospitalPharmacy Creatinine Clearance (Chem N/AFProMedica Defiance Regional HospitalNucleated erythrocytes [Presence] in Blood by Automated countOrdered By: Mervat Santiago on 15-96-5988Wlponnkst RBC Auto Ql (Bld)0.4 /100{WBC}0-0.5FProMedica Defiance Regional HospitalPlatelet mean volume Auto (Bld) [Entitic vol]Ordered By: Mervat Santiago on 17-14-7958Ofohsmvq mean volume (Bld) [Entitic vol]8.8 fL6.6-10.1FProMedica Defiance Regional Hospital Platelets Auto (Bld) [#/Vol]Ordered By: Mervat Santiago on 90-18-4788Xqfycqwoh (Bld) [#/Vol]236 10*3/kU150-860QnludeauyMercer County Community HospitalPotassium [Moles/volume] in Serum or PlasmaOrdered By: Mervat Santiago on 67-61-2918Vllqpyyyi [Moles/Vol]3.9 mmol/L3.5-5.1FProMedica Defiance Regional HospitalComment on above: Hemolysis is present at a level that could interfere with the result.Contact lab if redraw is requiredProtein [Mass/volume] in Serum or PlasmaOrdered By: Mervat Santiago on 88-06-4072Gcawsbn [Mass/Vol]9.3 g/dLHigh6.4-8.9[facility] HospitalRBC Auto (Bld) [#/Vol]Ordered By: Mervat Santiago on 81-18-9607CXC (Bld) [#/Vol]4.02 10*6/uL3.90-5.60[facility] Hospitalerum or plasma albumin/globulin mass ratioOrdered By: Mervat Santiago on 12-30-2023 Albumin/Globulin [Mass ratio]0.8 {ratio}[facility] Hospitalerum or plasma anion gap determinationOrdered By: Mervat Santiago on 31-89-5883Ynbgu gap [Moles/Vol]14.7 mmol/L6.0-15.0[facility] Hospitalerum or plasma high density lipoprotein (HDL) cholesterol measurementOrdered By: Mervat Santiago on 12-64-3514Hgzqalchtsn in HDL [Mass/Vol]55 mg/bR07-20JaxkewmnlMercer County Community HospitalComment on above:HDL CHOL ATP-III CLASSIFICATION Cardiovascular RiskHDL > or equal to 60 mg/dL LOWHDL < 40 mg/dL HIGHSerum or plasma total cholesterol/high density lipoprotein (HDL) cholesterol mass ratOrdered By: Mervat Santiago on 55-35-4330Pbjgzzfkxzj.total/Cholesterol in HDL [Mass ratio]2.6 {ratio}<5.0[facility]ville Hospitalodium [Moles/volume] in Serum or PlasmaOrdered By: Mervat Santiago on 54-91-8880Eeicfd [Moles/Vol]130 mmol/LLow 136-145Mer[facility] Community HospitalThyrotropin [Units/volume] in Serum or PlasmaOrdered By: Mervat Santiago on 43-03-8437XXE Qn2.96 m[IU]/L0.45-5.33[facility] HospitalTriglyceride [Mass/volume] in Serum or PlasmaOrdered By: Mervat Snyder on 37-56-9905Panbqpqgczks [Mass/Vol]239 mg/dLHigh0-149Mer[facility] HospitalComment on above:TRIG ATP III CLASSIFICATIONTRIG less than 150 mg/dL NormalTRIG 150-199 mg/dL Borderline highTRIG 200-500 mg/dL High TRIG greater than 500 mg/dL Very highStandard traceable to the Center for Disease Conrtrol and Prevention (CDC) test method.Urea nitrogen [Mass/volume] in Serum or PlasmaOrdered By: Mervat Santiago on 36-68-1333Vans nitrogen [Mass/Vol]27 mg/dLHigh7-25[facility] HospitalVitamin D+Metabolites [Mass/volume] in Serum or PlasmaOrdered By: Mervat Snyder on 32-26-1108Zwysrbd D+Metabolites [Mass/Vol]42.7 ng/hC57-407SvouallqvMercer County Community HospitalComment on above:Hemolysis is present at a level that could interfere with the result.Contact lab if redraw is requiredVITAMIN D STATUS 25(OH)VITAMIN D RANGE (ng/mL) Deficient <20 Insufficient 20 to <30Sufficient 30 to 100Reference: Waylon MF,Xavier NC, [place] RIOS, et al. Evaluation,treatment, and pr evention of vitamin D deficiency; an Endocrine Society clinical practice guideline. JCEM. 2010;96(7):1911-30.WBC Auto (Bld) [#/Vol]Ordered By: Mervat Santiago on 16-39-7690ZDZ (Bld) [#/Vol]16.3 10*3/uLHigh4.1-10.5FProMedica Defiance Regional HospitalPotassium [Moles/volume] in Serum or PlasmaOrdered By: Olga Lidia Martin on 84-11-2887Qscsopxtg [Moles/Vol]3.3 mmol/LLow3.5-5.1FProMedica Defiance Regional HospitalPotassium [Moles/volume] in Serum or PlasmaOrdered By: Yisel Andrade on 69-58-8065Wxdseypqc [Moles/Vol]4.4 mmol/L3.5-5.1FProMedica Defiance Regional HospitalPotassium [Moles/volume] in Serum or PlasmaOrdered By: Olga Lidia Martin on 43-49-3645Jjblrpqit [Moles/Vol]3.2 mmol/LLow3.5-5.1FProMedica Defiance Regional HospitalAlanine aminotransferase [Enzymatic activity/volume] in Serum or PlasmaOrdered By: Jose M Landry on 63-82-1517OGO [Catalytic activity/Vol]17 U/L7-52[facility] HospitalAlbumin [Mass/volume] in Serum or Plasma by Bromocresol green (BCG) dye binding methoOrdered By: Jose M Landry on 01-76-0926Ogkbkjc BCG dye [Mass/Vol]3.3 g/dL3.5-5.7FProMedica Defiance Regional HospitalAlkaline phosphatase [Enzymatic activity/volume] in Serum or PlasmaOrdered By: Jose M Landry on 15-29-4011NSR [Catalytic activity/Vol]118 U/L34-104 [facility] HospitalAspartate aminotransferase [Enzymatic activity/volume] in Serum or PlasmaOrdered By: Jose M Landry on 07-15-2023 AST [Catalytic activity/Vol]23 U/R08-70YfyxarckaMercer County Community Hospital Basophils Auto (Bld) [#/Vol]Ordered By: Jose M Landry on 35-65-7835Zydeskhsb (Bld) [#/Vol]0.1 10*3/uL0.0-0.2FProMedica Defiance Regional HospitalBasophils/100 WBC Auto (Bld)Ordered By: Jose M Landry on 57-17-1817Lugnnuhat/100 WBC (Bld) 0.7 %.[facility] HospitalBilirubin.total [Mass/volume] in Serum or PlasmaOrdered By: Jose M Landry on 32-90-5093Ftxndxqlv [Mass/Vol]0.2 mg/dL 0.3-1.0[facility] HospitalCalcium [Mass/volume] in Serum or Plasma Ordered By: Jose M Landry on 81-30-0020Cwgvfvv [Mass/Vol]7.3 mg/dL8.6-10.3 [facility] HospitalCarbon dioxide, total [Moles/volume] in Serum or PlasmaOrdered By: Jose M Landry on 51-65-2819WG6 [Moles/Vol]21.2 mmol/L 21.0-31.0[facility] HospitalChloride [Moles/volume] in Serum or PlasmaOrdered By: Jose M Landry on 29-85-8408Xmwqwieg [Moles/Vol]109 mmol/L 98-107Mer[facility] HospitalCreatinine [Mass/volume] in Serum or PlasmaOrdered By: Jose M Landry on 76-82-1051Bwzrpqcsvs [Mass/Vol]7.02 mg/dL 0.70-1.30[facility] HospitalDiagnostic impression [Interpretation] in Specimen NarrativeOrdered By: Olga Lidia Martin on 03-30-8637Xihkyllwtj impression Molgen John (Unsp spec) [Interp]See comment.[facility] Comment on above:Positive HCV antibody screen without the presence of HCVRNA is consistent with a resolved past infection or a falsepositive HCV antibody. Consider repeat testing after onemonth.Performed at: [facility] [id number] Director: Colton Lane PhD, Phone: [phone] at: [facility] Lab[address] [id number] Director: Fabienne Harmon MD, Phone: [phone] Auto (Bld) [#/Vol]Ordered By: Jose M Landry on 63-11-6958Wsxjbeguisx (Bld) [#/Vol]0.5 10*3/uL0.0-0.45[facility] HospitalEosinophils/100 WBC Auto (Bld)Ordered By: Jose M Landry on 14-29-7469Vciounjgsqx/100 WBC (Bld) 4.8 %.[facility] HospitalErythrocyte distribution width Auto (RBC) [Ratio]Ordered By: Jose M Landry on 03-32-7172Rqjvxtpgdzx distribution width (RBC) [Ratio]17.1 %12.0-14.8[facility] HospitalFerritin [Mass/volume] in Serum or PlasmaOrdered By: Maddie Dixon on 03-15-1678Umauwknb [Mass/Vol]31.1 ng/mL23.9-336.2FProMedica Defiance Regional HospitalGlobulin Calc (S) [Mass/Vol]Ordered By: Jose M Landry on 04-60-2433Trubeqjz (S) [Mass/Vol]3.6 g/dLMercer County Community HospitalGlucose [Mass/volume] in Serum or Plasma Ordered By: Jose M Landry on 34-61-5956Bcykpwg [Mass/Vol]67 mg/xR68-969 [facility] HospitalComment on above:ADA recommended reference rangeRandom Glucose Reference Range is dependent on time and content of last meal. Glucose of more than 200 mg/dL in a nonstressed, ambulatory subject supports the diagnosisof Diabetes Mellitus.Hematocrit Auto (Bld) [Volume fraction]Ordered By: Jose M Landry on 61-62-0220Dfpphuooeh (Bld) [Volume fraction]30.7 %38.8-50.0[facility] HospitalHemoglobin [Mass/volume] in BloodOrdered By: Jose M Landry on 66-09-2981Yonnzwcvan (Bld) [Mass/Vol]9.4 g/dL13.0-17.0[facility] HospitalHepatitis B virus surface Ab [Presence] in SerumOrdered By: Olga Lidia Martin on 87-49-9311EBF surface Ab Ql (S)Non-Reactive.[facility] HospitalComment on above: Non Reactive: Inconsistent with immunity, less than 10 mIU/mL Reactive: Consistent with immunity, greater than 9.9 mIU/mLPerformed at: [address] [id number] Director: Colton Lane PhD, Phone: [phone] B virus surface Ag [Presence] in Serum or Plasma by ImmunoassayOrdered By: Olga Lidia Martin on 60-10-5550FEE surface Ag IA QlNegative NegativeMercer County Community HospitalHeclinton county hospitaltis C virus IgG Ab [Presence] in Serum or Plasma by ImmunoassayOrdered By: Olga Lidia Martin on 02-80-5652APO IgG IA Ql ReactiveNon ReactiveMercer County Community HospitalHepatitis C virus RNA [Units/volume] (viral load) in Serum or Plasma by JAYMIE with probOrdered By: Olga Lidia Martin on 24-41-9243ZWX RNA JAYMIE+probe QnN/[facility] Hepatitis C virus RNA [log units/volume] (viral load) in Serum or Plasma by JAYMIE withOrdered By: Olga Lidia Martin on 35-74-0313TID RNA JAYMIE+probe [Log units/Vol]Not detected.[facility] HospitalHCV RNA JAYMIE+probe [Log units/Vol]N/A [facility] HospitalIron [Mass/volume] in Serum or PlasmaOrdered By: Maddie Dixon on 22-57-3076Spkm [Mass/Vol]149 ug/oE22-023YxzpccrlkMercer County Community HospitalIron binding capacity [Mass/volume] in Serum or PlasmaOrdered By: Maddie Dixon on 35-46-1686Swfq binding capacity [Mass/Vol]276 ug/vF634-301 [facility] HospitalIron saturation [Mass Fraction] in Serum or PlasmaOrdered By: Maddie Dixon on 74-66-8371Pvzs saturation [Mass fraction]54.0 %20-50Mer[facility] Community HospitalLeukocytes [#/volume] corrected for nucleated erythrocytes in Blood by Automated counOrdered By: Jose M Landry on 58-79-2079MMZ corrected for nucl RBC Auto (Bld) [#/Vol]9.7 10*3/uL4.1-10.5 [facility] HospitalLymphocytes Auto (Bld) [#/Vol]Ordered By: Jose M Landry on 61-49-8743Fwvqlajptin (Bld) [#/Vol]3.7 10*3/uL1.00-4.8 [facility] HospitalLymphocytes/100 WBC Auto (Bld)Ordered By: Jose M Landry on 92-59-1717Pxvgltizbok/100 WBC (Bld)38.5 %.[facility] HospitalH Auto (RBC) [Entitic mass]Ordered By: Jose M Landry on 66-59-8046HCH (RBC) [Entitic mass]30.2 pg27.5-35.2FProMedica Defiance Regional HospitalMCHC Auto (RBC) [Mass/Vol]Ordered By: Jose M Landry on 49-03-8356HFZT (RBC) [Mass/Vol]30.7 g/dL32.5-35.6FProMedica Defiance Regional HospitalMCV Auto (RBC) [Entitic vol]Ordered By: Jose M Landry on 46-69-2583MYS (RBC) [Entitic vol]98.4 fL83.5-101[facility] HospitalMonocytes Auto (Bld) [#/Vol]Ordered By: Jose M Landry on 75-27-4957Rlotgfkzm (Bld) [#/Vol]0.9 10*3/uL0.0-0.8[facility] HospitalMonocytes/100 WBC Auto (Bld)Ordered By: Jose M Landry on 75-14-9951Pwtyrelqf/100 WBC (Bld)9.4 %. [facility] HospitalNeutrophils Auto (Bld) [#/Vol]Ordered By: Jose M Landry on 41-78-4521Kyblrdtfmqv (Bld) [#/Vol]4.5 10*3/uL1.8-7.7 [facility] HospitalNeutrophils/100 WBC Auto (Bld)Ordered By: Jose M Landry on 50-10-3865Lmlqgbdmjbi/100 WBC (Bld)46.6 %.[facility] HospitalNo Panel InformationOrdered By: Jose M Landry on 01-26-8712Twfzonzdv GFR (CKD-EPI)7.666 mL/[facility] Creatinine Clearance (ChemN/[facility]7.666 mL/MinMercer County Community HospitalN/AFProMedica Defiance Regional HospitalNo Panel InformationOrdered By: Olga Lidia Martin on 97-48-4437Zgcxscbhv A IgM Antibody NegativeNegativeMercer County Community HospitalHepatitis B Core IgM Antibody NegativeNegativeMercer County Community HospitalHepatitis C RNA Qnt (PCR) Test InfoSee comment.[facility] HospitalComment on above:The quantitative range of this assay is 15 IU/mL to 100million IU/mL.Negative NegativeBarnesville Hospitalee comment.[facility] HospitalNucleated erythrocytes [Presence] in Blood by Automated countOrdered By: Jose M Landry on 89-96-2850Tdyoezjtt RBC Auto Ql (Bld)0.4 /100{WBC}0-0.5 [facility] HospitalPlatelet mean volume Auto (Bld) [Entitic vol] Ordered By: Jose M Landry on 79-10-0047Xexplzsm mean volume (Bld) [Entitic vol]10.9 fL6.6-10.1FProMedica Defiance Regional HospitalPlatelets Auto (Bld) [#/Vol] Ordered By: Jose M Landry on 02-99-6922Woevfhwbn (Bld) [#/Vol]193 10*3/uL 150-450[facility] HospitalPotassium [Moles/volume] in Serum or PlasmaOrdered By: Jose M Landry on 54-97-4592Kttngnbrt [Moles/Vol]5.4 mmol/L 3.5-5.1FProMedica Defiance Regional HospitalProtein [Mass/volume] in Serum or Plasma Ordered By: Jose M Landry on 88-94-3061Zzfvupt [Mass/Vol]6.9 g/dL6.4-8.9 [facility] HospitalRBC Auto (Bld) [#/Vol]Ordered By: Jose M Landry on 60-69-9569LLO (Bld) [#/Vol]3.12 10*6/uL3.90-5.60[facility] Hospitalerum or plasma albumin/globulin mass ratioOrdered By: Jose M Landry on 15-24-8010Fhxztqh/Globulin [Mass ratio]0.9 {ratio}[facility] Hospitalerum or plasma anion gap determinationOrdered By: Jose M Landry on 92-20-3129Lesji gap [Moles/Vol]14.2 mmol/L6.0-15.0[facility] Hospitalodium [Moles/volume] in Serum or PlasmaOrdered By: Jose M Landry on 90-35-8477Ismswr [Moles/Vol]139 mmol/Q337-202QfavwylasMercer County Community HospitalTransferrin [Mass/volume] in Serum or PlasmaOrdered By: Maddie Dixon on 62-02-6327Udkfdfgxdex [Mass/Vol]197 mg/gL413-641VqnvgbbwjMercer County Community HospitalUrea nitrogen [Mass/volume] in Serum or PlasmaOrdered By: Jose M Landry on 50-69-9314Frcb nitrogen [Mass/Vol]50 mg/dL7-25[facility] HospitalWBC Auto (Bld) [#/Vol]Ordered By: Jose M Landry on 16-94-4937YBB (Bld) [#/Vol]9.7 10*3/uL4.1-10.5FProMedica Defiance Regional Hospital Alanine aminotransferase [Enzymatic activity/volume] in Serum or PlasmaOrdered By: Jsoe M Landry on 17-81-0158UHD [Catalytic activity/Vol]13 U/L7-52 [facility] HospitalAlbumin [Mass/volume] in Serum or Plasma by Bromocresol green (BCG) dye binding methoOrdered By: Jose M Landry on 37-44-9273Exkbloo BCG dye [Mass/Vol]3.5 g/dL3.5-5.7FProMedica Defiance Regional HospitalAlkaline phosphatase [Enzymatic activity/volume] in Serum or PlasmaOrdered By: Jose M Landry on 10-97-7924GGU [Catalytic activity/Vol]124 U/L34-104 [facility] HospitalAspartate aminotransferase [Enzymatic activity/volume] in Serum or PlasmaOrdered By: Jose M Landry on 07-03-2023 AST [Catalytic activity/Vol]17 U/U12-87KuqmhdfqgMercer County Community Hospital Basophils Auto (Bld) [#/Vol]Ordered By: Jose M Landry on 80-25-1781Icssycbar (Bld) [#/Vol]0.1 10*3/uL0.0-0.2FProMedica Defiance Regional HospitalBasophils/100 WBC Auto (Bld)Ordered By: Jose M Landry on 42-14-2548Baeldgnty/100 WBC (Bld) 0.5 %.[facility] HospitalBilirubin.total [Mass/volume] in Serum or PlasmaOrdered By: Jose M Landry on 89-35-0836Puvvwdfdx [Mass/Vol]0.2 mg/dL 0.3-1.0[facility] HospitalCalcium [Mass/volume] in Serum or Plasma Ordered By: Jose M Landry on 03-85-7780Jicxzom [Mass/Vol]7.5 mg/dL8.6-10.3 [facility] HospitalCarbon dioxide, total [Moles/volume] in Serum or PlasmaOrdered By: Jose M Landry on 59-08-2751RG7 [Moles/Vol]22.5 mmol/L 21.0-31.0[facility] HospitalChloride [Moles/volume] in Serum or PlasmaOrdered By: Jose M Landry on 18-63-7394Nlhvzued [Moles/Vol]110 mmol/L 98-107[facility] HospitalCreatinine [Mass/volume] in Serum or PlasmaOrdered By: Jose M Landry on 25-10-1026Jkiuydlqbn [Mass/Vol]7.45 mg/dL 0.70-1.30[facility] HospitalEosinophils Auto (Bld) [#/Vol]Ordered By: Jose M Landry on 95-80-4355Eufevtcqxmm (Bld) [#/Vol]0.5 10*3/uL0.0-0.45 [facility] HospitalEosinophils/100 WBC Auto (Bld)Ordered By: Jose M Landry on 21-01-5798Njmcidkzdzd/100 WBC (Bld)5.2 %.[facility] HospitalErythrocyte distribution width Auto (RBC) [Ratio]Ordered By: Jose M Landry on 46-39-9695Tyizsfhwfba distribution width (RBC) [Ratio]17.1 %12.0-14.8[facility] HospitalGlobulin Calc (S) [Mass/Vol]Ordered By: Jose M Landry on 90-37-0482Khibsdgc (S) [Mass/Vol]4.1 g/dLMercer County Community HospitalGlucose [Mass/volume] in Serum or PlasmaOrdered By: Jose M Landry on 15-12-5072Lnfurfa [Mass/Vol]119 mg/eH94-782EretmjergMercer County Community HospitalComment on above:ADA recommended reference rangeRandom Glucose Reference Range is dependent on time and content of last meal. Glucose of more than 200 mg/dL in a nonstressed, ambulatory subject supports the diagnosisof Diabetes Mellitus.Hematocrit Auto (Bld) [Volume fraction]Ordered By: Jose M Landry on 79-26-2758Uhvuombkkp (Bld) [Volume fraction]28.4 %38.8-50.0 [facility] HospitalHemoglobin [Mass/volume] in BloodOrdered By: Jose M Landry on 32-00-4893Yiqijvgayk (Bld) [Mass/Vol]9.0 g/dL13.0-17.0 [facility] HospitalLeukocytes [#/volume] corrected for nucleated erythrocytes in Blood by Automated counOrdered By: Jose M Landry on 85-50-4026BLX corrected for nucl RBC Auto (Bld) [#/Vol]10.5 10*3/uL4.1-10.5 [facility] HospitalLymphocytes Auto (Bld) [#/Vol]Ordered By: Jose M Landry on 24-38-2179Kcjvcxxxrwi (Bld) [#/Vol]3.9 10*3/uL1.00-4.8 [facility] HospitalLymphocytes/100 WBC Auto (Bld)Ordered By: Jose M Landry on 57-74-4166Qiybemutlia/100 WBC (Bld)36.9 %.[facility] Auto (RBC) [Entitic mass]Ordered By: Jose M Landry on 23-12-8945CJY (RBC) [Entitic mass]30.9 pg27.5-35.2FOhioHealth Southeastern Medical Center Auto (RBC) [Mass/Vol]Ordered By: Jose M Landry on 01-80-1569YOCI (RBC) [Mass/Vol]31.6 g/dL32.5-35.6FProMedica Defiance Regional HospitalMCV Auto (RBC) [Entitic vol]Ordered By: Jose M Landry on 33-83-8664UNK (RBC) [Entitic vol]97.8 fL83.5-101[facility] HospitalMonocytes Auto (Bld) [#/Vol]Ordered By: Jose M Landry on 47-76-6975Zqjlmguqg (Bld) [#/Vol]1.1 10*3/uL0.0-0.8[facility] HospitalMonocytes/100 WBC Auto (Bld)Ordered By: Jose M Landry on 77-18-4325Ubdfccnff/100 WBC (Bld)10.3 %. [facility] HospitalNeutrophils Auto (Bld) [#/Vol]Ordered By: Jose M Landry on 16-10-1846Fwkhvlnhrpg (Bld) [#/Vol]4.9 10*3/uL1.8-7.7 [facility] HospitalNeutrophils/100 WBC Auto (Bld)Ordered By: Jose M Landry on 15-40-4638Bszahvmegcj/100 WBC (Bld)47.1 %.[facility] HospitalNo Panel InformationOrdered By: Jose M Landry on 30-97-7544Dkhtngvyu GFR (CKD-EPI)7.139 mL/[facility] Creatinine Clearance (Chem11.60[facility]7.139 mL/[facility]11.60[facility] Nucleated erythrocytes [Presence] in Blood by Automated countOrdered By: Jose M Landry on 74-85-1064Ezaifndlp RBC Auto Ql (Bld)0.4 /100{WBC}0-0.5FProMedica Defiance Regional HospitalPlatelet mean volume Auto (Bld) [Entitic vol]Ordered By: Jose M Landry on 70-40-7019Ioatcoed mean volume (Bld) [Entitic vol]10.0 fL 6.6-10.1FProMedica Defiance Regional HospitalPlatelets Auto (Bld) [#/Vol]Ordered By: Jose M Landry on 09-99-2420Fhvwaiqwn (Bld) [#/Vol]216 10*3/hN554-130 [facility] HospitalPotassium [Moles/volume] in Serum or Plasma Ordered By: Jose M Landry on 85-56-3460Duxiznvoe [Moles/Vol]5.2 mmol/L 3.5-5.1FProMedica Defiance Regional HospitalProtein [Mass/volume] in Serum or Plasma Ordered By: Jose M Landry on 73-37-0257Tioqqsu [Mass/Vol]7.6 g/dL6.4-8.9 [facility] HospitalRBC Auto (Bld) [#/Vol]Ordered By: Jose M Landry on 07-23-8603DBZ (Bld) [#/Vol]2.90 10*6/uL3.90-5.60[facility] Hospitalerum or plasma albumin/globulin mass ratioOrdered By: Jose M Landry on 28-28-0869Rhaopej/Globulin [Mass ratio]0.9 {ratio}[facility] Hospitalerum or plasma anion gap determinationOrdered By: Jose M Landry on 38-28-8497Hugbw gap [Moles/Vol]12.7 mmol/L6.0-15.0[facility] Hospitalodium [Moles/volume] in Serum or PlasmaOrdered By: Jose M Landry on 47-01-4448Qtpauh [Moles/Vol]140 mmol/V412-224MlrrnsdncMercer County Community HospitalUrea nitrogen [Mass/volume] in Serum or PlasmaOrdered By: Jose M Landry on 30-19-3456Jxlv nitrogen [Mass/Vol]55 mg/dL7-25[facility] HospitalWBC Auto (Bld) [#/Vol]Ordered By: Jose M Landry on 01-32-2435GVB (Bld) [#/Vol]10.5 10*3/uL4.1-10.5FProMedica Defiance Regional Hospital Alanine aminotransferase [Enzymatic activity/volume] in Serum or PlasmaOrdered By: Jose M Landry on 75-19-6883MXO [Catalytic activity/Vol]10 U/L7-52 [facility] HospitalAlbumin [Mass/volume] in Serum or Plasma by Bromocresol green (BCG) dye binding methoOrdered By: Jose M Landry on 60-72-0504Irewolw BCG dye [Mass/Vol]3.3 g/dL3.5-5.7FProMedica Defiance Regional HospitalAlkaline phosphatase [Enzymatic activity/volume] in Serum or PlasmaOrdered By: Jose M Landry on 05-88-4380EAL [Catalytic activity/Vol]101 U/L34-104 [facility] HospitalAspartate aminotransferase [Enzymatic activity/volume] in Serum or PlasmaOrdered By: Jose M Landry on 06-19-2023 AST [Catalytic activity/Vol]17 U/W18-32KdjmrsiojMercer County Community Hospital Basophils Auto (Bld) [#/Vol]Ordered By: Jose M Landry on 02-28-0389Epgrvrabc (Bld) [#/Vol]0.1 10*3/uL0.0-0.2FProMedica Defiance Regional HospitalBasophils/100 WBC Auto (Bld)Ordered By: Jose M Landry on 31-00-0226Tetvtwcwr/100 WBC (Bld) 0.8 %.[facility] HospitalBilirubin.total [Mass/volume] in Serum or PlasmaOrdered By: Jose M Landry 34-87-4206Pnipfndzh [Mass/Vol]0.2 mg/dL 0.3-1.0[facility] HospitalCalcium [Mass/volume] in Serum or Plasma Ordered By: Jose M Landry 01-36-1505Tsorhsw [Mass/Vol]7.0 mg/dL8.6-10.3 [facility] HospitalCarbon dioxide, total [Moles/volume] in Serum or PlasmaOrdered By: Jose M aLndry on 43-72-2728TH6 [Moles/Vol]23.6 mmol/L 21.0-31.0[facility] HospitalChloride [Moles/volume] in Serum or PlasmaOrdered By: Jose M Landry on 88-66-4394Gjewhyle [Moles/Vol]106 mmol/L 98-107[facility] HospitalCholesterol [Mass/volume] in Serum or PlasmaOrdered By: Mervat Santiago on 80-11-1671Wgfmjkkrphx [Mass/Vol]99 mg/dL 140-200Mer[facility] HospitalComment on above:Chol less than 200 mg/dl low riskChol 201-239 mg/dl borderline riskChol 240 mg/dl and greater high riskCholesterol in LDL Calc [Mass/Vol]Ordered By: Mervat Santiago on 06-19-2023 Cholesterol in LDL [Mass/Vol]32 mg/dL0-100[facility] Comment on above:LDL ATP III CLASSIFICATIONLDL less than 100 mg/dL OptimalLDL 100-129 mg/dL Near or above yquufwmSJB149-393 mg/dL Borderline highLDL 160-189 mg/dL HighLDL greater than 189 mg/dL Very highCholesterol in VLDL Calc [Mass/Vol]Ordered By: Mervat Santiago on 70-42-6759Icljmcfqdep in VLDL [Mass/Vol]14 mg/dLMercer County Community HospitalCreatinine [Mass/volume] in Serum or PlasmaOrdered By: Jose M Landry on 03-10-5525Vkkvlzcvtw [Mass/Vol]6.85 mg/dL 0.70-1.30[facility] HospitalEosinophils Auto (Bld) [#/Vol]Ordered By: Jose M Landry on 44-68-7321Kkitcjyxikf (Bld) [#/Vol]0.3 10*3/uL0.0-0.45 [facility] HospitalEosinophils/100 WBC Auto (Bld)Ordered By: Jose M Landry on 91-57-0833Naggylvhspc/100 WBC (Bld)3.6 %.[facility] HospitalErythrocyte distribution width Auto (RBC) [Ratio]Ordered By: Jose M Landry on 61-53-5430Urzoqwcdphc distribution width (RBC) [Ratio]17.1 %12.0-14.8[facility] HospitalGlobulin Calc (S) [Mass/Vol]Ordered By: Jose M Landry on 10-92-3881Ptspsowg (S) [Mass/Vol]4.4 g/dLMercer County Community HospitalGlucose [Mass/volume] in Serum or PlasmaOrdered By: Jose M Landry on 01-31-1823Elhtsnm [Mass/Vol]124 mg/oA20-235DuudabtqeMercer County Community HospitalComment on above:ADA recommended reference rangeRandom Glucose Reference Range is dependent on time and content of last meal. Glucose of more than 200 mg/dL in a nonstressed, ambulatory subject supports the diagnosisof Diabetes Mellitus.Hematocrit Auto (Bld) [Volume fraction]Ordered By: Jose M Landry on 97-72-8143Siktcnzybb (Bld) [Volume fraction]29.3 %38.8-50.0 [facility] HospitalHemoglobin [Mass/volume] in BloodOrdered By: Jose M Landry on 37-34-7561Ixgltxwurd (Bld) [Mass/Vol]9.2 g/dL13.0-17.0 [facility] HospitalLeukocytes [#/volume] corrected for nucleated erythrocytes in Blood by Automated counOrdered By: Jose M Landry on 78-47-1276NJC corrected for nucl RBC Auto (Bld) [#/Vol]9.3 10*3/uL4.1-10.5 [facility] HospitalLymphocytes Auto (Bld) [#/Vol]Ordered By: Jose M Landry on 18-84-5652Cdafafeabbv (Bld) [#/Vol]4.1 10*3/uL1.00-4.8 [facility] HospitalLymphocytes/100 WBC Auto (Bld)Ordered By: Jose M Landry on 02-02-6931Bfelhvzexjr/100 WBC (Bld)44.4 %.[facility] HospitalH Auto (RBC) [Entitic mass]Ordered By: Jose M Landry on 54-23-0799UVV (RBC) [Entitic mass]31.1 pg27.5-35.2FProMedica Defiance Regional HospitalMCHC Auto (RBC) [Mass/Vol]Ordered By: Jose M Landry on 07-92-1178DITM (RBC) [Mass/Vol]31.4 g/dL32.5-35.6FProMedica Defiance Regional HospitalMCV Auto (RBC) [Entitic vol]Ordered By: Jose M Landry on 59-29-3767BED (RBC) [Entitic vol]99.0 fL83.5-101[facility] HospitalMonocytes Auto (Bld) [#/Vol]Ordered By: Jose M Landry on 86-47-2389Ndvrqdmvv (Bld) [#/Vol]0.8 10*3/uL0.0-0.8[facility] HospitalMonocytes/100 WBC Auto (Bld)Ordered By: Jose M Landry on 39-42-6445Rsxdcrbeo/100 WBC (Bld)8.1 %. [facility] HospitalNeutrophils Auto (Bld) [#/Vol]Ordered By: Jose M Landry on 60-49-8077Cfilchqcdal (Bld) [#/Vol]4.0 10*3/uL1.8-7.7 [facility] HospitalNeutrophils/100 WBC Auto (Bld)Ordered By: Jose M Landry on 37-63-6690Xawfduosiyy/100 WBC (Bld)43.1 %.[facility] HospitalNo Panel InformationOrdered By: Jose M Landry on 40-46-7292Voacufoto GFR (CKD-EPI)7.895 mL/[facility] Creatinine Clearance (ChemN/[facility]7.895 mL/[facility] CampusN/[facility] Nucleated erythrocytes [Presence] in Blood by Automated countOrdered By: Jose M Landry on 13-94-9134Shsoftvnr RBC Auto Ql (Bld)0.7 /100{WBC}0-0.5FProMedica Defiance Regional HospitalPlatelet mean volume Auto (Bld) [Entitic vol]Ordered By: Jose M Landry on 62-39-0279Pppvlslh mean volume (Bld) [Entitic vol]10.9 fL 6.6-10.1FProMedica Defiance Regional HospitalPlatelets Auto (Bld) [#/Vol]Ordered By: Jose M Landry on 46-82-0140Ekeerxfla (Bld) [#/Vol]212 10*3/eB559-425 [facility] HospitalPotassium [Moles/volume] in Serum or Plasma Ordered By: Jose M Landry on 77-53-7271Lblefygqc [Moles/Vol]4.9 mmol/L 3.5-5.1FProMedica Defiance Regional HospitalProstate specific Ag [Mass/volume] in Serum or PlasmaOrdered By: Mervat Santiago on 38-13-5572Nvsqbxbq specific Ag [Mass/Vol]0.400 ng/mL0.000-4.000Mer[facility] HospitalComment on above:Serial tumor marker results determined by assays using different manufacturers or methods may not be comparable.[facility] car dumper operator helper and method:ISIDORO Radical StudiosEL DXI, CHEMILUMINESCENT IMMUNOASSAY.Protein [Mass/volume] in Serum or PlasmaOrdered By: Jose M Landry on 06-19-2023 Protein [Mass/Vol]7.7 g/dL6.4-8.9[facility] HospitalRBC Auto (Bld) [#/Vol]Ordered By: Jose M Landry on 75-78-1231REP (Bld) [#/Vol]2.96 10*6/uL 3.90-5.60[facility] Hospitalerum or plasma albumin/globulin mass ratioOrdered By: Jose M Landry on 12-46-2220Ghhyofu/Globulin [Mass ratio]0.8 {ratio}[facility] Hospitalerum or plasma anion gap determination Ordered By: Jose M Landry on 16-81-6905Rpobp gap [Moles/Vol]15.3 mmol/L 6.0-15.0[facility] Hospitalerum or plasma high density lipoprotein (HDL) cholesterol measurementOrdered By: Mervat Santiago on 06-19-2023 Cholesterol in HDL [Mass/Vol]52 mg/hE37-72MutdqcnrrMercer County Community Hospital Comment on above:HDL CHOL ATP-III CLASSIFICATION Cardiovascular RiskHDL > or equal to 60 mg/dL LOWHDL < 40 mg/dL HIGHSerum or plasma total cholesterol/high density lipoprotein (HDL) cholesterol mass ratOrdered By: Mervat Santiago on 60-47-9412Nohlunwvwbb.total/Cholesterol in HDL [Mass ratio]1.9 {ratio}<5.0 [facility] Hospitalodium [Moles/volume] in Serum or PlasmaOrdered By: Jose M Landry on 91-29-9947Rrtwsq [Moles/Vol]140 mmol/H988-044Ojjehvqih Regional Medical CenterThyrotropin [Units/volume] in Serum or PlasmaOrdered By: Mervat Santiago on 63-42-1212RIZ Qn4.98 m[IU]/L0.45-5.33[facility] HospitalTriglyceride [Mass/volume] in Serum or PlasmaOrdered By: Mervat Santiago on 12-93-7850Qbjuipulxdlr [Mass/Vol]73 mg/dL0-149[facility] Comment on above:TRIG ATP III CLASSIFICATIONTRIG less than 150 mg/dL NormalTRIG 150-199 mg/dL Borderline highTRIG 200-500 mg/dL High TRIG greater than 500 mg/dL Very highStandard traceable to the Center for Disease Conrtrol and Prevention (CDC) test method.Urea nitrogen [Mass/volume] in Serum or PlasmaOrdered By: Jose M Landry on 81-10-1513Bcge nitrogen [Mass/Vol]51 mg/dL7-25[facility] HospitalVitamin D+Metabolites [Mass/volume] in Serum or Plasma Ordered By: Mervat Santiago on 58-48-3760Yjopnyq D+Metabolites [Mass/Vol]30.2 ng/mL 30-100[facility] HospitalComment on above:VITAMIN D STATUS 25(OH)VITAMIN D RANGE (ng/mL) Deficient <20 Insufficient 20 to <68Aybueucqwe87 to 100Reference: Waylon MF,Xavier SUMNER, [place] RIOS, et al. Evaluation,treatment, and prevention of vitamin D deficiency; an Endocrine Society clinical practice guideline. JCEM. 2010; 96(7):1911-30.WBC Auto (Bld) [#/Vol]Ordered By: Jose M Landry on 15-38-4510YPZ (Bld) [#/Vol]9.3 10*3/uL4.1-10.5FProMedica Defiance Regional HospitalAlanine aminotransferase [Enzymatic activity/volume] in Serum or PlasmaOrdered By: Jose M Landry on 70-28-5955EFY [Catalytic activity/Vol]16 U/L7-52[facility] HospitalAlbumin [Mass/volume] in Serum or Plasma by Bromocresol green (BCG) dye binding methoOrdered By: Jose M Landry on 22-47-8178Bmsaeyq BCG dye [Mass/Vol]3.6 g/dL3.5-5.7FProMedica Defiance Regional HospitalAlkaline phosphatase [Enzymatic activity/volume] in Serum or PlasmaOrdered By: Jose M Landry on 78-56-0004ZOU [Catalytic activity/Vol]121 U/P70-949JfjjtcpiaMercer County Community HospitalAnisocytosis LM Ql (Bld)Ordered By: Jose M Landry on 06-05-2023 Anisocytosis Ql (Bld)ModerateMercer County Community HospitalAspartate aminotransferase [Enzymatic activity/volume] in Serum or PlasmaOrdered By: Jose M Landry on 39-27-4352UZR [Catalytic activity/Vol]19 U/Y26-81VlfpqpmixMercer County Community HospitalBasophils Auto (Bld) [#/Vol]Ordered By: Jose M Landry on 97-91-9007Xrpotibil (Bld) [#/Vol]0.1 10*3/uL0.0-0.2FProMedica Defiance Regional HospitalBasophils/100 WBC Auto (Bld)Ordered By: Jose M Landry on 46-36-2225Emkjvsqsp/100 WBC (Bld)0.9 %.[facility] Bilirubin.total [Mass/volume] in Serum or PlasmaOrdered By: Jose M Landry on 28-27-6403Omhtfhjil [Mass/Vol]0.2 mg/dL0.3-1.0[facility] Blood toxic granulation detection by light microscopyOrdered By: Jose M Landry on 77-26-4831Eqykr granules LM Ql (Bld)SlightMercer County Community HospitalCalcium [Mass/volume] in Serum or PlasmaOrdered By: Jose M Landry on 03-03-1426Exghgrg [Mass/Vol]7.6 mg/dL8.6-10.3FProMedica Defiance Regional HospitalCarbon dioxide, total [Moles/volume] in Serum or PlasmaOrdered By: Jose M Landry on 06-68-4243LY3 [Moles/Vol]20.5 mmol/L21.0-31.0[facility] HospitalChloride [Moles/volume] in Serum or PlasmaOrdered By: Jose M Landry on 71-87-4946Pskxjsiz [Moles/Vol]110 mmol/H48-037NotedcbswMercer County Community HospitalCreatinine [Mass/volume] in Serum or PlasmaOrdered By: Jose M Landry on 60-31-7174Kngnyndtvd [Mass/Vol]5.86 mg/dL0.70-1.30[facility] HospitalEosinophils Auto (Bld) [#/Vol]Ordered By: Jose M Landry on 85-27-6054Irnomibrjzd (Bld) [#/Vol]0.4 10*3/uL0.0-0.45[facility] HospitalEosinophils/100 WBC Auto (Bld)Ordered By: Jose M Landry on 54-60-5315Ilxzgvnuxod/100 WBC (Bld)3.3 %.[facility] HospitalErythrocyte distribution width Auto (RBC) [Ratio]Ordered By: Jose M Landry on 66-09-5658Ryjkznefzej distribution width (RBC) [Ratio]17.9 % 12.0-14.8[facility] HospitalGlobulin Calc (S) [Mass/Vol]Ordered By: Jose M Landry on 89-96-1453Pfdddcnj (S) [Mass/Vol]4.5 g/dLMercer County Community HospitalGlucose [Mass/volume] in Serum or PlasmaOrdered By: Jose M Landry on 80-97-6921Wacmwwp [Mass/Vol]99 mg/wX50-272JgfuuwavnMercer County Community HospitalHematocrit Auto (Bld) [Volume fraction]Ordered By: Jose M Landry on 74-74-7192Qtbnryxuqt (Bld) [Volume fraction]29.3 %38.8-50.0 [facility] HospitalHemoglobin [Mass/volume] in BloodOrdered By: Jose M Landry on 38-10-2786Fdbtbojwps (Bld) [Mass/Vol]9.3 g/dL13.0-17.0 [facility] HospitalLeukocytes [#/volume] corrected for nucleated erythrocytes in Blood by Automated counOrdered By: Jose M Landry on 81-42-0163FMR corrected for nucl RBC Auto (Bld) [#/Vol]11.5 10*3/uL4.1-10.5 [facility] HospitalLymphocytes Auto (Bld) [#/Vol]Ordered By: Jose M Landry on 62-02-9616Hqncypxcpnb (Bld) [#/Vol]5.0 10*3/uL1.00-4.8 [facility] HospitalLymphocytes/100 WBC Auto (Bld)Ordered By: Jose M Landry on 51-94-3730Neuhzqeacko/100 WBC (Bld)43.5 %.[facility] HospitalH Auto (RBC) [Entitic mass]Ordered By: Jose M Landry on 93-52-0614USI (RBC) [Entitic mass]31.2 pg27.5-35.2FProMedica Defiance Regional HospitalMCHC Auto (RBC) [Mass/Vol]Ordered By: Jose M Landry on 52-09-0807KZLP (RBC) [Mass/Vol]31.7 g/dL32.5-35.6FProMedica Defiance Regional HospitalMCV Auto (RBC) [Entitic vol]Ordered By: Jose M Landry on 80-79-7794CVL (RBC) [Entitic vol]98.5 fL83.5-101[facility] HospitalMonocytes Auto (Bld) [#/Vol]Ordered By: Jose M Landry on 58-71-1513Bmrwiwige (Bld) [#/Vol]0.8 10*3/uL0.0-0.8[facility] HospitalMonocytes/100 WBC Auto (Bld)Ordered By: Jose M Landry on 88-90-4175Ojvaxttcf/100 WBC (Bld)6.5 %. [facility] HospitalNeutrophils Auto (Bld) [#/Vol]Ordered By: Jose M Landry on 51-28-9535Fiwwychulzb (Bld) [#/Vol]5.3 10*3/uL1.8-7.7 [facility] HospitalNeutrophils/100 WBC Auto (Bld)Ordered By: Jose M Landry on 50-58-2331Jtqkmhatdqi/100 WBC (Bld)45.8 %.[facility] CenterNo Panel InformationOrdered By: Jose M Landry on 49.522 mL/MinMercer County Community HospitalN/AFProMedica Defiance Regional HospitalNucleated erythrocytes [Presence] in Blood by Automated count Ordered By: Jose M Landry on 42-28-0267Gknmqtkpe RBC Auto Ql (Bld)0.5 /100{WBC}0-0.5FProMedica Defiance Regional HospitalPlatelet adequacy [Presence] in Blood by Light microscopyOrdered By: Jose M Landry on 07-01-9288Bdpbwconj LM Ql (Bld)NormalNoProvidence HospitalPlatelet mean volume Auto (Bld) [Entitic vol]Ordered By: Jose M Landry on 77-66-0256Eecvtmxi mean volume (Bld) [Entitic vol]10.5 fL6.6-10.1FProMedica Defiance Regional Hospital Platelet morphology finding [Identifier] in BloodOrdered By: Jose M Landry on 88-77-8033Bxvezemk morphology finding Nom (Bld)NormalNoProvidence HospitalPlatelets Auto (Bld) [#/Vol]Ordered By: Jose M Landry on 72-79-3157Uluahijdo (Bld) [#/Vol]225 10*3/nA895-610MddmcdmllMercer County Community HospitalPoikilocytosis [Presence] in Blood by Light microscopyOrdered By: Jose M Landry on 44-90-3868Jkzabltaxhgetd LM Ql (Bld)ModerateMercer County Community HospitalPolychromasia [Presence] in Blood by Light microscopyOrdered By: Jose M Landry on 91-55-3457Kujcmnxfgeepo LM Ql (Bld)SlightMercer County Community HospitalPotassium [Moles/volume] in Serum or PlasmaOrdered By: Jose M Landry on 04-43-0394Ifbbocacu [Moles/Vol]5.2 mmol/L3.5-5.1FProMedica Defiance Regional HospitalProtein [Mass/volume] in Serum or PlasmaOrdered By: Jose M Landry on 53-42-1853Vztudjd [Mass/Vol]8.1 g/dL6.4-8.9[facility] HospitalRBC Auto (Bld) [#/Vol]Ordered By: Jose M Landry on 06-05-2023 RBC (Bld) [#/Vol]2.98 10*6/uL3.90-5.60Mer[facility] Community HospitalRBC morphologyOrdered By: Jose M Landry on 94-20-8339ZLB morphology finding Nom (Bld)N/AFMercy Health Anderson Hospitalchistocytes [Presence] in Blood by Light microscopyOrdered By: Jose M Landry on 83-81-5332Ulbuqsqshkxd LM Ql (Bld)SlightBarnesville Hospitalerum or plasma albumin/globulin mass ratioOrdered By: Jose M Landry on 32-99-4173Tfhivxm/Globulin [Mass ratio]0.8 {ratio}Barnesville Hospitalerum or plasma anion gap determinationOrdered By: Jose M Landry on 39-74-2061Kaqoe gap [Moles/Vol] 15.7 mmol/L6.0-15.0Barn[facility]ville Hospitalodium [Moles/volume] in Serum or PlasmaOrdered By: Jose M Landry on 97-58-5654Wsphea [Moles/Vol]141 mmol/N202-666MatrolutqMercer County Community HospitalTarget cellsOrdered By: Jose M Landry on 48-27-3282Gbdvkz cells LM Ql (Bld)ModerateMercer County Community HospitalUrea nitrogen [Mass/volume] in Serum or PlasmaOrdered By: Jose M Landry on 39-80-1548Zuum nitrogen [Mass/Vol]54 mg/dL7-25Mer[facility] Community HospitalWBC Auto (Bld) [#/Vol]Ordered By: Jose M Landry on 06-05-2023 WBC (Bld) [#/Vol]11.5 10*3/uL4.1-10.5FProMedica Defiance Regional HospitalAlanine aminotransferase [Enzymatic activity/volume] in Serum or PlasmaOrdered By: Jose M Landry on 86-66-5734GLZ [Catalytic activity/Vol]11 U/L7-52Mer[facility] Community HospitalAlbumin [Mass/volume] in Serum or Plasma by Bromocresol green (BCG) dye binding methoOrdered By: Jose M Landry on 03-51-8896Khkbzfi BCG dye [Mass/Vol]3.7 g/dL3.5-5.7FProMedica Defiance Regional HospitalAlkaline phosphatase [Enzymatic activity/volume] in Serum or PlasmaOrdered By: Jose M Landry on 33-96-5473OXH [Catalytic activity/Vol]113 U/R10-343ZugpngytyMercer County Community HospitalAspartate aminotransferase [Enzymatic activity/volume] in Serum or PlasmaOrdered By: Jose M Landry on 71-52-8347NJI [Catalytic activity/Vol]18 U/F60-97AgydtgtpeMercer County Community HospitalBasophils Auto (Bld) [#/Vol]Ordered By: Jose M Landry on 80-65-5106Zdqoaquyc (Bld) [#/Vol]0.1 10*3/uL0.0-0.2FProMedica Defiance Regional HospitalBasophils/100 WBC Auto (Bld) Ordered By: Jose M Landry on 47-40-3237Mlehcubqh/100 WBC (Bld)0.7 %. [facility] HospitalBilirubin.total [Mass/volume] in Serum or PlasmaOrdered By: Jose M Landry on 41-45-2852Shmoqugwq [Mass/Vol]0.3 mg/dL 0.3-1.0Mer[facility] Community HospitalCBC W Auto Differential panel (Bld)on 72-64-1373Dvvbcjyjc (Bld) [#/Vol]0.1 10*3/uL0.0 - 0.2 10*3/uLNOMS Healthcare Basophils/100 WBC Manual cnt (Syn fld)0.7 %.[facility]OMS HealthcareEosinophils (Bld) [#/Vol]0.7 10*3/uLHigh0.0 - 0.45 10*3/uLNOMS HealthcareEosinophils/100 WBC Manual cnt (Syn fld)7.2 %.[facility] HealthcareErythrocyte distribution width (RBC) [Ratio]17.3 %High12.0 - 14.8 %[facility] HealthcareHematocrit (Bld) [Volume fraction] 28.5 %Low38.8 - 50.0 %[facility] HealthcareHemoglobin (Bld) [Mass/Vol]9.0 g/dLLow13.0 - 17.0 g/dLNOMS HealthcareInterpretation and review of laboratory results AbnormalNOCO HealthcareLymphocytes (Bld) [#/Vol]3.1 10*3/uL1.00 - 4.8 10*3/uL [facility] HealthcareLymphocytes/100 WBC Manual cnt (Syn fld)33.9 %.[facility] HospitalH (RBC) [Entitic mass]31.3 pg27.5 - 35.2 pgBarton County Memorial HospitalHC (RBC) [Mass/Vol] 31.6 g/dLLow32.5 - 35.6 g/dLBarton County Memorial HospitalV (RBC) [Entitic vol]99.2 fL83.5 - 101 fLUT[facility] HealthcareMonocytes (Bld) [#/Vol]1.1 10*3/uLHigh0.0 - 0.8 10*3/uLUTAH VALLEY [facility]OSPITAL HealthcareMonocytes+Macrophages/100 WBC Manual cnt (Syn fld)12.2 %.[facility] HealthcareNeutrophils (Bld) [#/Vol]4.2 10*3/uL1.8 - 7.7 10*3/uLNOCO Healthcare Neutrophils/100 WBC Manual cnt (Syn fld)46.0 %.[facility] HealthcareNRBC0.5 /100{WBC}0 - 0.5 /100{WBC}[facility] HealthcarePlatelet mean volume (Bld) [Entitic vol]9.9 fL6.6 - 10.1 fLUT[facility] VALLEY [facility] HealthcarePlatelets (Bld) [#/Vol]195 10*3/uL150 - 450 10*3/uLUTAH VALLEY [facility]OSPITAL HealthcareRBC LM.HPF (Urine sed) [#/Area]2.87 /[HPF]Low3.90 - 5.60NOParkland Health CenterWBC (Bld) [#/Vol]9.1 10*3/uL4.1 - 10.5 10*3/uLNOCO HealthcareWBC LM.HPF (Urine sed) [#/Area]9.1 10*3/uL4.1 - 10.5 10*3/uLNOJefferson Memorial Hospital HealthcareCalcium [Mass/volume] in Serum or PlasmaOrdered By: Jose M Landry on 21-57-2877Hpsonuj [Mass/Vol]7.9 mg/dL8.6-10.3[facility] CenterCarbon dioxide, total [Moles/volume] in Serum or PlasmaOrdered By: Jose M Landry on 64-04-3977TO8 [Moles/Vol]19.5 mmol/L21.0-31.0[facility] HospitalChloride [Moles/volume] in Serum or PlasmaOrdered By: Jose M Landry on 68-48-9038Aqwzmwfj [Moles/Vol]110 mmol/M19-012SiwvmjmolMercer County Community HospitalComprehensive metabolic panelon 18-11-3394Vrllfyy [Mass/Vol]3.7 g/dL3.5 - 5.7 g/dLCrittenton Behavioral HealthAlbumin/Globulin [Mass ratio]0.9 {ratio}[facility] HealthcareALP [Catalytic activity/Vol]113 U/LHigh34 - 104 U/LNOMS HealthcareALT [Catalytic activity/Vol]11 U/L7 - 52 U/LNOMS HealthcareAnion gap [Moles/Vol]14.6 mmol/L6.0 - 15.0NOCO HealthcareAST [Catalytic activity/Vol]18 U/L13 - 39 U/L [facility] HealthBilirubin [Mass/Vol]0.3 mg/dL0.3 - 1.0 mg/dLCrittenton Behavioral Health Calcium [Mass/Vol]7.9 mg/dLLow8.6 - 10.3 mg/dLCrittenton Behavioral HealthChloride [Moles/Vol]110 mmol/LHigh98 - 107 mmol/LNOMS HealthcareCO2 [Moles/Vol]19.5 mmol/LLow21.0 - 31.0 mmol/LNOMS HealthcareCreatinine (U) [Mass/Vol]5.87 mg/dL High0.70 - 1.30 mg/dLNOParkland Health CenterGFR/1.73 sq M.predicted MDRD (S/P/Bld) [Vol rate/Area]9.502 mL/min/{1.73_m2}[facility] HealthcareGlobulin (S) [Mass/Vol]4.2 g/dL [facility] HealthGlucose [Mass/Vol]157 mg/fKXnea76 - 100 mg/dLCrittenton Behavioral Health Comment on above:Random Glucose Reference Range is dependent on time and content of last meal. Glucose of more than 200 mg/dL in a nonstressed, ambulatory subject supports the diagnosis of Diabetes Mellitus. ADA recommended reference range Interpretation and review of laboratory resultsAbnormalNOMS HealthcarePotassium [Moles/Vol]5.1 mmol/L3.5 - 5.1 mmol/LNOMS HealthcareProtein [Mass/Vol]7.9 g/dL 6.4 - 8.9 g/dLNOMS HealthcareSodium [Moles/Vol]139 mmol/L136 - 145 mmol/LNOMS HealthcareUrea nitrogen [Mass/Vol]55 mg/dLHigh7 - 25 mg/dLNOMS HealthcareNOMS HealthcareCreatinine [Mass/volume] in Serum or PlasmaOrdered By: Jose M Landry on 11-83-6295Bxyejhkrnt [Mass/Vol]5.87 mg/dL0.70-1.30[facility] HospitalEosinophils Auto (Bld) [#/Vol]Ordered By: Jose M Landry on 01-87-0142Zradfqgsdyt (Bld) [#/Vol]0.7 10*3/uL0.0-0.45Mer[facility] HospitalEosinophils/100 WBC Auto (Bld)Ordered By: Jose M Landry on 07-57-3810Odxsllsynoy/100 WBC (Bld)7.2 %.[facility] HospitalErythrocyte distribution width Auto (RBC) [Ratio]Ordered By: Jose M Landry on 99-92-7926Fcoewxzlgny distribution width (RBC) [Ratio]17.3 % 12.0-14.8[facility] HospitalGlobulin Calc (S) [Mass/Vol]Ordered By: Jose M Landry on 88-12-5973Onsminni (S) [Mass/Vol]4.2 g/dLMercer County Community HospitalGlucose [Mass/volume] in Serum or PlasmaOrdered By: Jose M Landry on 74-46-0711Wntegip [Mass/Vol]157 mg/sE17-885QetrpqmzuMercer County Community HospitalHematocrit Auto (Bld) [Volume fraction]Ordered By: Jose M Landry on 53-18-9927Xjoswrmgjh (Bld) [Volume fraction]28.5 %38.8-50.0 [facility] HospitalHemoglobin [Mass/volume] in BloodOrdered By: Jose M Landry on 35-00-1285Wxgzgvjnkm (Bld) [Mass/Vol]9.0 g/dL13.0-17.0 [facility] HospitalLeukocytes [#/volume] corrected for nucleated erythrocytes in Blood by Automated counOrdered By: Jose M Landry on 58-04-6896HZX corrected for nucl RBC Auto (Bld) [#/Vol]9.1 10*3/uL4.1-10.5 [facility] HospitalLymphocytes Auto (Bld) [#/Vol]Ordered By: Jose M Landry on 74-97-0999Mehjdbecwkl (Bld) [#/Vol]3.1 10*3/uL1.00-4.8 [facility] HospitalLymphocytes/100 WBC Auto (Bld)Ordered By: Jose M Landry on 96-01-4679Jydgijgmkul/100 WBC (Bld)33.9 %.[facility] HospitalMCH Auto (RBC) [Entitic mass]Ordered By: Jose M Landry on 82-64-0499QRW (RBC) [Entitic mass]31.3 pg27.5-35.2FProMedica Defiance Regional HospitalMCHC Auto (RBC) [Mass/Vol]Ordered By: Jose M Landry on 28-99-2416RZNS (RBC) [Mass/Vol]31.6 g/dL32.5-35.6FProMedica Defiance Regional HospitalMCV Auto (RBC) [Entitic vol]Ordered By: Jose M Landry on 76-36-2253BCM (RBC) [Entitic vol]99.2 fL83.5-101Mer[facility] HospitalMonocytes Auto (Bld) [#/Vol]Ordered By: Jose M Landry on 21-01-2068Rqvrgayvh (Bld) [#/Vol]1.1 10*3/uL0.0-0.8[facility] HospitalMonocytes/100 WBC Auto (Bld)Ordered By: Jose M Landry on 41-94-8691Tsomdvuwg/100 WBC (Bld)12.2 %. [facility] HospitalNeutrophils Auto (Bld) [#/Vol]Ordered By: Jose M Landry on 81-95-0667Rdmgwxzmgxc (Bld) [#/Vol]4.2 10*3/uL1.8-7.7 [facility] HospitalNeutrophils/100 WBC Auto (Bld)Ordered By: Jose M Landry on 66-01-0493Sbvyihkdwlj/100 WBC (Bld)46.0 %.[facility] HospitalNo Panel InformationOrdered By: Jose M Landry on 49.502 mL/MinMercer County Community HospitalN/AFProMedica Defiance Regional HospitalNucleated erythrocytes [Presence] in Blood by Automated count Ordered By: Jose M Landry on 52-08-1932Owdvyibmt RBC Auto Ql (Bld)0.5 /100{WBC}0-0.5FProMedica Defiance Regional HospitalPlatelet mean volume Auto (Bld) [Entitic vol]Ordered By: Jose M Landry on 07-46-8413Kalngaoq mean volume (Bld) [Entitic vol]9.9 fL6.6-10.1FProMedica Defiance Regional HospitalPlatelets Auto (Bld) [#/Vol]Ordered By: Jose M Landry on 22-80-0856Ppkczicbg (Bld) [#/Vol] 195 10*3/uB371-765WwsewemplMercer County Community HospitalPotassium [Moles/volume] in Serum or PlasmaOrdered By: Jose M Landry on 48-83-4937Lecirbnki [Moles/Vol] 5.1 mmol/L3.5-5.1FProMedica Defiance Regional HospitalProtein [Mass/volume] in Serum or PlasmaOrdered By: Jose M Landry on 53-00-0919Mkitatk [Mass/Vol]7.9 g/dL 6.4-8.9[facility] HospitalRBC Auto (Bld) [#/Vol]Ordered By: Jose M Landry on 10-45-1003JGD (Bld) [#/Vol]2.87 10*6/uL3.90-5.60[facility] Hospitalerum or plasma albumin/globulin mass ratioOrdered By: Jose M Landry on 75-95-4328Evbeqlz/Globulin [Mass ratio]0.9 {ratio}[facility] Hospitalerum or plasma anion gap determinationOrdered By: Jose M Landry on 08-71-1770Hrwva gap [Moles/Vol]14.6 mmol/L6.0-15.0[facility] Hospitalodium [Moles/volume] in Serum or PlasmaOrdered By: Jose M Landry on 22-82-5015Fykfud [Moles/Vol]139 mmol/F714-247XonsqqrysMercer County Community HospitalUrea nitrogen [Mass/volume] in Serum or PlasmaOrdered By: Jose M Landry on 99-08-0015Gvvn nitrogen [Mass/Vol]55 mg/dL7-25Mer[facility] HospitalWBC Auto (Bld) [#/Vol]Ordered By: Jose M Landry on 93-04-6060ZSQ (Bld) [#/Vol]9.1 10*3/uL4.1-10.5FProMedica Defiance Regional Hospital Alanine aminotransferase [Enzymatic activity/volume] in Serum or PlasmaOrdered By: Jose M Landry on 29-61-1649CHX [Catalytic activity/Vol]9 U/L7-52 [facility] HospitalAlbumin [Mass/volume] in Serum or Plasma by Bromocresol green (BCG) dye binding methoOrdered By: Jose M Landry on 75-69-1841Ypwzbez BCG dye [Mass/Vol]3.5 g/dL3.5-5.7FProMedica Defiance Regional HospitalAlkaline phosphatase [Enzymatic activity/volume] in Serum or PlasmaOrdered By: Jose M Landry on 10-44-4789WIR [Catalytic activity/Vol]117 U/L34-104 [facility] HospitalAspartate aminotransferase [Enzymatic activity/volume] in Serum or PlasmaOrdered By: Jose M Landry on 05-08-2023 AST [Catalytic activity/Vol]16 U/K43-68QaadpjtjuMercer County Community Hospital Basophils Auto (Bld) [#/Vol]Ordered By: Jose M Landry on 46-80-8565Zbxnmhgfz (Bld) [#/Vol]0.1 10*3/uL0.0-0.2FProMedica Defiance Regional HospitalBasophils/100 WBC Auto (Bld)Ordered By: Jose M Landry on 75-61-3447Vamiumakn/100 WBC (Bld) 1.1 %.[facility] HospitalBilirubin.total [Mass/volume] in Serum or PlasmaOrdered By: Jose M Landry on 86-63-7390Qnaigespn [Mass/Vol]0.2 mg/dL 0.3-1.0[facility] HospitalCB W Auto Differential panel (Bld)on 23-72-7602Odqqzpvmg (Bld) [#/Vol]0.1 10*3/uL0.0 - 0.2 10*3/uLNOMS Healthcare Basophils/100 WBC Manual cnt (Syn fld)1.1 %.[facility] HealthcareEosinophils (Bld) [#/Vol]0.6 10*3/uLHigh0.0 - 0.45 10*3/uLNOMS HealthcareEosinophils/100 WBC Manual cnt (Syn fld)5.4 %.[facility] HealthcareErythrocyte distribution width (RBC) [Ratio]17.8 %High12.0 - 14.8 %[facility] HealthcareHematocrit (Bld) [Volume fraction] 28.1 %Low38.8 - 50.0 %NOM HealthcareHemoglobin (Bld) [Mass/Vol]8.8 g/dLLow13.0 - 17.0 g/dLUTAH VALLEY HOSPITAL HealthcareInterpretation and review of laboratory results AbnormalNOCO HealthcareLymphocytes (Bld) [#/Vol]4.9 10*3/uLHigh1.00 - 4.8 10*3/uLNOMS HealthcareLymphocytes/100 WBC Manual cnt (Syn fld)43.5 %.[facility] HealthMCH (RBC) [Entitic mass]30.9 pg27.5 - 35.2 pgNOMetropolitan Saint Louis Psychiatric CenterHC (RBC) [Mass/Vol]31.2 g/dLLow32.5 - 35.6 g/dLCrittenton Behavioral HealthMCV (RBC) [Entitic vol]99.1 fL83.5 - 101 fLNOCO HealthcareMonocytes (Bld) [#/Vol]1.1 10*3/uLHigh0.0 - 0.8 10*3/uLNOMS HealthcareMonocytes+Macrophages/100 WBC Manual cnt (Syn fld)9.7 %. [facility] HealthcareNeutrophils (Bld) [#/Vol]4.5 10*3/uL1.8 - 7.7 10*3/uLNOMS HealthcareNeutrophils/100 WBC Manual cnt (Syn fld)40.3 %.[facility] HealthcareNRBC0.6 /100{WBC}High0 - 0.5 /100{WBC}[facility] HealthcarePlatelet mean volume (Bld) [Entitic vol]10.5 fLHigh6.6 - 10.1 fLNOMS HealthcarePlatelets (Bld) [#/Vol]279 10*3/uL 150 - 450 10*3/uLNOMS HealthcareRBC LM.HPF (Urine sed) [#/Area]2.84 /[HPF]Low 3.90 - 5.60N[facility] HealthcareWBC (Bld) [#/Vol]11.2 10*3/uLHigh4.1 - 10.5 10*3/uL [facility] HealthcareWBC LM.HPF (Urine sed) [#/Area]11.2 10*3/uLHigh4.1 - 10.5 10*3/uL [facility] HealthcareCalcium [Mass/volume] in Serum or PlasmaOrdered By: Jose M Landry on 81-18-3491Jkspsnb [Mass/Vol]7.8 mg/dL8.6-10.3FProMedica Defiance Regional HospitalCarbon dioxide, total [Moles/volume] in Serum or Plasma Ordered By: Jose M Landry on 62-51-3257EK2 [Moles/Vol]22.3 mmol/L21.0-31.0 [facility] HospitalChloride [Moles/volume] in Serum or Plasma Ordered By: Jose M Landry on 69-12-0178Dmzeitqe [Moles/Vol]108 mmol/L98-107 [facility] HospitalComprehensive metabolic panelon 05-08-2023 Albumin [Mass/Vol]3.5 g/dL3.5 - 5.7 g/dLNOCO HealthcareAlbumin/Globulin [Mass ratio]0.8 {ratio}[facility] HealthcareALP [Catalytic activity/Vol]117 U/LHigh34 - 104 U/LNOMS HealthcareALT [Catalytic activity/Vol]9 U/L7 - 52 U/LN[facility] Anion gap [Moles/Vol]15.4 mmol/LHigh6.0 - 15.0NOMS HealthcareAST [Catalytic activity/Vol]16 U/L13 - 39 U/LNOMS HealthcareBilirubin [Mass/Vol]0.2 mg/dLLow0.3 - 1.0 mg/dLNOMS HealthcareCalcium [Mass/Vol]7.8 mg/dLLow8.6 - 10.3 mg/dLNOMS HealthcareChloride [Moles/Vol]108 mmol/LHigh98 - 107 mmol/LNOMS HealthcareCO2 [Moles/Vol]22.3 mmol/L21.0 - 31.0 mmol/LNOMS HealthcareCreatinine (U) [Mass/Vol] 5.50 mg/dLHigh0.70 - 1.30 mg/dLNOCO HealthcareGFR/1.73 sq M.predicted MDRD (S/P/Bld) [Vol rate/Area]10.274 mL/min/{1.73_m2}[facility] HealthcareGlobulin (S) [Mass/Vol]4.2 g/dLNOMS HealthcareGlucose [Mass/Vol]127 mg/yTBcxx90 - 100 mg/dL [facility] HealthcareComment on above:Random Glucose Reference Range is dependent on time and content of last meal. Glucose of more than 200 mg/dL in a nonstressed, ambulatory subject supports the diagnosis of Diabetes Mellitus. ADA recommended reference range Interpretation and review of laboratory resultsAbnormalNOMS HealthcarePotassium [Moles/Vol]4.7 mmol/L3.5 - 5.1 mmol/LNOMS HealthcareProtein [Mass/Vol]7.7 g/dL 6.4 - 8.9 g/dLNOCO HealthcareSodium [Moles/Vol]141 mmol/L136 - 145 mmol/LNOMS HealthcareUrea nitrogen [Mass/Vol]50 mg/dLHigh7 - 25 mg/dLNOCO HealthcareNOCO HealthcareCreatinine [Mass/volume] in Serum or PlasmaOrdered By: Jose M Landry on 77-35-6898Epfcwxjfdm [Mass/Vol]5.50 mg/dL0.70-1.30[facility] HospitalEosinophils Auto (Bld) [#/Vol]Ordered By: Jose M Landry on 26-92-6169Tghraitvidd (Bld) [#/Vol]0.6 10*3/uL0.0-0.45[facility] HospitalEosinophils/100 WBC Auto (Bld)Ordered By: Jose M Landry on 79-24-7265Llqiikjyswb/100 WBC (Bld)5.4 %.[facility] HospitalErythrocyte distribution width Auto (RBC) [Ratio]Ordered By: Jose M Landry on 10-92-3804Ripyoshkqfz distribution width (RBC) [Ratio]17.8 % 12.0-14.8[facility] HospitalGlobulin Calc (S) [Mass/Vol]Ordered By: Jose M Landry on 40-87-4345Maghxiel (S) [Mass/Vol]4.2 g/dLMercer County Community HospitalGlucose [Mass/volume] in Serum or PlasmaOrdered By: Jose M Landry on 62-39-7113Kiempil [Mass/Vol]127 mg/fA14-847MheyugdzkMercer County Community HospitalHematocrit Auto (Bld) [Volume fraction]Ordered By: Jose M Landry on 67-87-1932Zpesoynebn (Bld) [Volume fraction]28.1 %38.8-50.0 [facility] HospitalHemoglobin [Mass/volume] in BloodOrdered By: Jose M Landry on 21-48-1573Wxtlgjxsto (Bld) [Mass/Vol]8.8 g/dL13.0-17.0 [facility] HospitalLeukocytes [#/volume] corrected for nucleated erythrocytes in Blood by Automated counOrdered By: Jose M Landry on 85-80-1249VJH corrected for nucl RBC Auto (Bld) [#/Vol]11.2 10*3/uL4.1-10.5 [facility] HospitalLymphocytes Auto (Bld) [#/Vol]Ordered By: Jose M Landry on 25-23-4513Rdsinxlxiif (Bld) [#/Vol]4.9 10*3/uL1.00-4.8 [facility] HospitalLymphocytes/100 WBC Auto (Bld)Ordered By: Jose M Landry on 26-39-8197Jzzupvqvmtg/100 WBC (Bld)43.5 %.[facility] Auto (RBC) [Entitic mass]Ordered By: Jose M Landry on 22-61-3195TIE (RBC) [Entitic mass]30.9 pg27.5-35.2FProMedica Defiance Regional HospitalMCHC Auto (RBC) [Mass/Vol]Ordered By: Jose M Landry on 33-65-1948RIVQ (RBC) [Mass/Vol]31.2 g/dL32.5-35.6FProMedica Defiance Regional HospitalMCV Auto (RBC) [Entitic vol]Ordered By: Jose M Landry on 92-33-9825LXQ (RBC) [Entitic vol]99.1 fL83.5-101Mer[facility] HospitalMonocytes Auto (Bld) [#/Vol]Ordered By: Jose M Landry on 13-88-7101Hdkkqjxfa (Bld) [#/Vol]1.1 10*3/uL0.0-0.8[facility] HospitalMonocytes/100 WBC Auto (Bld)Ordered By: Jose M Landry on 84-47-5516Kfarfgilw/100 WBC (Bld)9.7 %. [facility] HospitalNeutrophils Auto (Bld) [#/Vol]Ordered By: Jose M Landry on 59-96-2996Sfdomufbley (Bld) [#/Vol]4.5 10*3/uL1.8-7.7 [facility] HospitalNeutrophils/100 WBC Auto (Bld)Ordered By: Jose M Landry on 55-30-4142Ntnyfebjout/100 WBC (Bld)40.3 %.[facility] HospitalNo Panel InformationOrdered By: Jose M Landry on 13-44-089071.274 mL/MinMercer County Community HospitalN/AFProMedica Defiance Regional HospitalNucleated erythrocytes [Presence] in Blood by Automated count Ordered By: Jose M Landry on 37-71-6689Mjxqoqzje RBC Auto Ql (Bld)0.6 /100{WBC}0-0.5FProMedica Defiance Regional HospitalPlatelet mean volume Auto (Bld) [Entitic vol]Ordered By: Jose M Landry on 51-12-2497Emvdmqkh mean volume (Bld) [Entitic vol]10.5 fL6.6-10.1FProMedica Defiance Regional HospitalPlatelets Auto (Bld) [#/Vol]Ordered By: Jose M Landry on 53-30-3558Cbqhiguyc (Bld) [#/Vol]279 10*3/hX730-048ZrdetgwncMercer County Community HospitalPotassium [Moles/volume] in Serum or PlasmaOrdered By: Jose M Landry on 05-08-2023 Potassium [Moles/Vol]4.7 mmol/L3.5-5.1FProMedica Defiance Regional HospitalProtein [Mass/volume] in Serum or PlasmaOrdered By: Jose M Landry on 05-08-2023 Protein [Mass/Vol]7.7 g/dL6.4-8.9[facility] HospitalRBC Auto (Bld) [#/Vol]Ordered By: Jose M Landry on 54-08-6338VFN (Bld) [#/Vol]2.84 10*6/uL 3.90-5.60[facility] Hospitalerum or plasma albumin/globulin mass ratioOrdered By: Jose M Landry on 25-50-4507Vhocbgc/Globulin [Mass ratio]0.8 {ratio}[facility] Hospitalerum or plasma anion gap determination Ordered By: Jose M Landry on 01-68-9037Rxqfc gap [Moles/Vol]15.4 mmol/L 6.0-15.0[facility] Hospitalodium [Moles/volume] in Serum or PlasmaOrdered By: Jose M Landry on 18-27-4369Edlgoy [Moles/Vol]141 mmol/L 136-145Mer[facility] Community HospitalUrea nitrogen [Mass/volume] in Serum or PlasmaOrdered By: Jose M Landry on 57-52-5302Dysm nitrogen [Mass/Vol]50 mg/dL7-25Mer[facility] HospitalWBC Auto (Bld) [#/Vol]Ordered By: Jose M Landry on 04-23-5687GHU (Bld) [#/Vol]11.2 10*3/uL4.1-10.5FProMedica Defiance Regional HospitalAlanine aminotransferase [Enzymatic activity/volume] in Serum or PlasmaOrdered By: Jose M Landry on 37-63-8620OUQ [Catalytic activity/Vol]12 U/L7-52[facility] HospitalAlbumin [Mass/volume] in Serum or Plasma by Bromocresol green (BCG) dye binding methoOrdered By: Jose M Landry on 36-77-9013Rljcnhj BCG dye [Mass/Vol]3.5 g/dL3.5-5.7FProMedica Defiance Regional HospitalAlkaline phosphatase [Enzymatic activity/volume] in Serum or PlasmaOrdered By: Jose M Landry on 19-27-7417NES [Catalytic activity/Vol] 132 U/J94-519OohvsddxiMercer County Community HospitalAnisocytosis LM Ql (Bld)Ordered By: Jose M Landry on 65-72-5052Egjerbordgzx Ql (Bld)MarkedMercer County Community HospitalAspartate aminotransferase [Enzymatic activity/volume] in Serum or PlasmaOrdered By: Jose M Landry on 15-17-3226QOR [Catalytic activity/Vol]19 U/I41-76QtjfdlxkqMercer County Community HospitalBasophils Auto (Bld) [#/Vol]Ordered By: Jose M Landry on 31-33-7551Ffpmrvigu (Bld) [#/Vol]0.1 10*3/uL0.0-0.2 [facility] HospitalBasophils/100 WBC Auto (Bld)Ordered By: Jose M Landry on 66-13-7843Dhdwtyleq/100 WBC (Bld)0.8 %.[facility] HospitalBilirubin.total [Mass/volume] in Serum or PlasmaOrdered By: Jose M Landry on 69-92-5847Ratmqlhll [Mass/Vol]0.3 mg/dL0.3-1.0[facility] HospitalCalcium [Mass/volume] in Serum or PlasmaOrdered By: Jose M Landry on 60-60-3648Aegifen [Mass/Vol]7.5 mg/dL8.6-10.3FProMedica Defiance Regional HospitalCarbon dioxide, total [Moles/volume] in Serum or PlasmaOrdered By: Jose M Landry on 14-05-1816BV5 [Moles/Vol]20.9 mmol/L21.0-31.0[facility] HospitalChloride [Moles/volume] in Serum or PlasmaOrdered By: Jose M Landry on 69-95-6222Ulrdgggg [Moles/Vol]109 mmol/D61-899YfvhztslzMercer County Community HospitalCreatinine [Mass/volume] in Serum or PlasmaOrdered By: Jose M Landry on 68-72-4598Wdthdrykcx [Mass/Vol]5.95 mg/dL0.70-1.30[facility] HospitalEosinophils Auto (Bld) [#/Vol]Ordered By: Jose M Landry on 37-82-5334Zgbbnvhknuv (Bld) [#/Vol]0.4 10*3/uL0.0-0.45[facility] HospitalEosinophils/100 WBC Auto (Bld)Ordered By: Jose M Landry on 15-27-0747Mfncapnnaxf/100 WBC (Bld)4.1 %.[facility] HospitalErythrocyte distribution width Auto (RBC) [Ratio]Ordered By: Jose M Landry on 33-20-9083Scdzxqukekl distribution width (RBC) [Ratio]19.2 % 12.0-14.8[facility] HospitalGlobulin Calc (S) [Mass/Vol]Ordered By: Jose M Landry on 57-37-8350Idftvjdy (S) [Mass/Vol]4.3 g/dLMercer County Community HospitalGlucose [Mass/volume] in Serum or PlasmaOrdered By: Jose M Landry on 44-84-6474Rztzfsq [Mass/Vol]107 mg/uV58-887SdysfxaroMercer County Community HospitalHematocrit Auto (Bld) [Volume fraction]Ordered By: Jose M Landry on 95-80-1255Zbuiaoyybl (Bld) [Volume fraction]27.2 %38.8-50.0 [facility] HospitalHemoglobin [Mass/volume] in BloodOrdered By: Jose M Landry on 95-18-4738Tfexpjdgfh (Bld) [Mass/Vol]8.8 g/dL13.0-17.0 [facility] HospitalHypochromia LM Ql (Bld)Ordered By: Jose M Landry on 51-27-5416Gohleuckqln Ql (Bld)[facility] CenterLeukocytes [#/volume] corrected for nucleated erythrocytes in Blood by Automated counOrdered By: Jose M Landry on 82-63-5047OPM corrected for nucl RBC Auto (Bld) [#/Vol]9.9 10*3/uL4.1-10.5FProMedica Defiance [facility] Hospital Lymphocytes Auto (Bld) [#/Vol]Ordered By: Jose M Landry on 04-22-2023 Lymphocytes (Bld) [#/Vol]4.2 10*3/uL1.00-4.8[facility] Lymphocytes/100 WBC Auto (Bld)Ordered By: Jose M Landry on 04-22-2023 Lymphocytes/100 WBC (Bld)42.5 %.[facility] [Entitic mass]Ordered By: Jose M Landry on 36-23-1622UNZ (RBC) [Entitic mass]32.1 pg27.5-35.2FProMedica Defiance Regional HospitalMCHC Auto (RBC) [Mass/Vol] Ordered By: Jose M Landry on 92-34-3505QFIZ (RBC) [Mass/Vol]32.4 g/dL 32.5-35.6FProMedica Defiance Regional HospitalMCV Auto (RBC) [Entitic vol]Ordered By: Jose M Landry on 96-79-9036RBQ (RBC) [Entitic vol]99.2 fL83.5-101 [facility] HospitalMacrocytes LM Ql (Bld)Ordered By: Jose M Landry on 12-33-3250Rllsempsem Ql (Bld)MarkedMercer County Community HospitalMonocytes Auto (Bld) [#/Vol]Ordered By: Jose M Landry on 04-22-2023 Monocytes (Bld) [#/Vol]0.9 10*3/uL0.0-0.8[facility] Monocytes/100 WBC Auto (Bld)Ordered By: Jose M Landry on 04-22-2023 Monocytes/100 WBC (Bld)8.9 %.[facility] HospitalNeutrophils Auto (Bld) [#/Vol]Ordered By: Jose M Landry on 23-50-8603Knucrftdhmo (Bld) [#/Vol]4.3 10*3/uL1.8-7.7FProMedica Defiance Regional HospitalNeutrophils/100 WBC Auto (Bld)Ordered By: Jose M Landry on 73-91-5247Xcymyoybdcp/100 WBC (Bld) 43.7 %.[facility] [facility] HospitalNo Panel InformationOrdered By: Jose M Landry on .349 mL/MinMercer County Community HospitalN/[facility] CenterNucleated erythrocytes [Presence] in Blood by Automated countOrdered By: Jose M Landry on 76-91-8764Aidrkelhv RBC Auto Ql (Bld)0.1 /100{WBC}0-0.5FProMedica Defiance Regional HospitalOvalocyte detectionOrdered By: Jose M Landry on 57-08-5092Diuutqjsaz LM Ql (Bld)[facility]Plate[facility] adequacy [Presence] in Blood by Light microscopyOrdered By: Jose M Landry on 79-59-6639Athztabmn LM Ql (Bld)NormalNormalMercer County Community HospitalPlatelet mean volume Auto (Bld) [Entitic vol]Ordered By: Jose M Landry on 42-46-7417Ffjqdobv mean volume (Bld) [Entitic vol]9.8 fL 6.6-10.1FProMedica Defiance Regional HospitalPlatelet morphology finding [Identifier] in BloodOrdered By: Jose M Landry on 15-50-0721Ihjpjegp morphology finding Nom (Bld)N/[facility] CenterPlatelets Auto (Bld) [#/Vol]Ordered By: Jose M Landry on 05-55-7928Ndfpbfzxp (Bld) [#/Vol] 221 10*3/yU076-438PuzmujtwsMercer County Community HospitalPlatelawrence memorial hospital Large [Presence] in Blood by Light microscopyOrdered By: Jose M Landry on 26-24-9967Haecpkcgx Large LM Ql (Bld)[facility] HealthPoikilocytosis [Presence] in Blood by Light microscopyOrdered By: Jose M Landry on 00-96-1712Yzviutczzctmkr LM Ql (Bld)ModerateMercer County Community Hospital Polychromasia [Presence] in Blood by Light microscopyOrdered By: Jose M Landry on 69-72-3400Nfmvuwcjstrfp LM Ql (Bld)[facility] HealthPotassium [Moles/volume] in Serum or PlasmaOrdered By: Jose M Landry on 25-83-5084Saftknrlw [Moles/Vol]4.6 mmol/L3.5-5.1FProMedica Defiance Regional HospitalProtein [Mass/volume] in Serum or PlasmaOrdered By: Jose M Landry on 81-79-5351Picofnc [Mass/Vol]7.8 g/dL6.4-8.9Mer[facility] Community HospitalRB Auto (Bld) [#/Vol]Ordered By: Jose M Landry on 86-69-6028OXX (Bld) [#/Vol] 2.74 10*6/uL3.90-5.60[facility] morphologyOrdered By: Jose M Landry on 94-16-6196SEE morphology finding Nom (Bld)N/AFMercy Health Anderson Hospitalchistocytes [Presence] in Blood by Light microscopy Ordered By: Jose M Landry on 37-52-2551Vdodcrkgfuvd LM Ql (Bld)[facility] Centererum or plasma albumin/globulin mass ratio Ordered By: Jose M Landry on 87-96-7213Sqdhjuc/Globulin [Mass ratio]0.8 {ratio}[facility]ville Hospitalerum or plasma anion gap determination Ordered By: Jose M Landry on 08-77-5151Stwze gap [Moles/Vol]15.7 mmol/L 6.0-15.0[facility]ville Hospitalodium [Moles/volume] in Serum or PlasmaOrdered By: Jose M Landry on 91-39-8146Ppkiir [Moles/Vol]141 mmol/L 136-145Mer[facility] Community HospitalTarget cellsOrdered By: Jose M Landry on 78-32-2217Ynverp cells LM Ql (Bld)[facility] HealthUrea nitrogen [Mass/volume] in Serum or PlasmaOrdered By: Jose M Landry on 25-58-7274Ragk nitrogen [Mass/Vol]61 mg/dL7-25Mer[facility] HospitalWBC Auto (Bld) [#/Vol]Ordered By: Jose M Landry on 04-22-2023 WBC (Bld) [#/Vol]9.9 10*3/uL4.1-10.5FProMedica Defiance Regional Hospital Anisocytosis LM Ql (Bld)Ordered By: Brandan Cruz on 19-49-5690Kdgpwhoiavgz Ql (Bld)ModerateMercer County Community HospitalBand form neutrophils/100 WBC Manual cnt (Bld)Ordered By: Brandan Cruz on 65-12-6787Dklp form neutrophils/100 WBC (Bld)1 %0-5FProMedica Defiance Regional HospitalBasophils Auto (Bld) [#/Vol]Ordered By: Brandan Cruz on 40-70-4943Awmleryei (Bld) [#/Vol]N/A [facility] HospitalBasophils/100 WBC Auto (Bld)Ordered By: Brandan Cruz on 74-99-6585Bltnxolvm/100 WBC (Bld)N/[facility] Calcium [Mass/volume] in Serum or PlasmaOrdered By: Pedro Gunter on 04-16-2023 Calcium [Mass/Vol]7.9 mg/dL8.6-10.3FProMedica Defiance Regional HospitalCarbon dioxide, total [Moles/volume] in Serum or PlasmaOrdered By: Pedro Gunter on 32-23-9722RE0 [Moles/Vol]21.8 mmol/L21.0-31.0[facility] Chloride [Moles/volume] in Serum or PlasmaOrdered By: Pedro Gunter on 04-16-2023 Chloride [Moles/Vol]109 mmol/R17-720FducvcfxgMercer County Community HospitalCreatinine [Mass/volume] in Serum or PlasmaOrdered By: Pedro Gunter on 92-40-5670Qnyfvolvmo [Mass/Vol]5.91 mg/dL0.70-1.30Mer[facility] HospitalEosinophils Auto (Bld) [#/Vol]Ordered By: Brandan Cruz on 59-49-4334Xqedsdgejkw (Bld) [#/Vol] N/[facility] CenterEosinophils/100 WBC Auto (Bld)Ordered By: Brandan Cruz on 19-05-2069Vvkhvasnvvd/100 WBC (Bld)N/[facility] CenterEosinophils/100 WBC Manual cnt (Bld)Ordered By: Brandan Cruz on 76-19-9574Ollxmftbjye/100 WBC (Bld)3 %1-3FProMedica Defiance Regional Hospital Erythrocyte distribution width Auto (RBC) [Ratio]Ordered By: Brandan Cruz on 80-31-8390Xdkbpcycybd distribution width (RBC) [Ratio]19.3 %12.0-14.8Mer[facility] HospitalGiant platelets/100 leukocytes [Ratio] in Blood by Manual countOrdered By: Brandan Cruz on 83-11-6223Nqsgz platelets/100 WBC Manual cnt (Bld) [Ratio]1 /100{WBC}[facility] HospitalGlucose Glucometer (BldC) [Mass/Vol]Ordered By: Fawad Rocha on 66-77-2397Nrzwwdc [Mass/Vol]183 mg/dLMercer County Community HospitalGlucose [Mass/volume] in Serum or Plasma Ordered By: Pedro Gunter on 30-02-6047Hwtfkpp [Mass/Vol]150 mg/vH57-383DqatociyzMercer County Community HospitalHematocrit Auto (Bld) [Volume fraction]Ordered By: Brandan Cruz on 39-72-9629Qlsgcjawuu (Bld) [Volume fraction]27.5 %38.8-50.0 [facility] HospitalHemoglobin [Mass/volume] in BloodOrdered By: Brandan Cruz on 89-72-1505Whhevegrng (Bld) [Mass/Vol]8.7 g/dL13.0-17.0 [facility] HospitalLeukocytes [#/volume] corrected for nucleated erythrocytes in Blood by Automated counOrdered By: Brandan Cruz on 04-16-2023 WBC corrected for nucl RBC Auto (Bld) [#/Vol]13.0 10*3/uL4.1-10.5FProMedica Defiance Regional HospitalLymphocytes Auto (Bld) [#/Vol]Ordered By: Brandan Cruz on 82-48-8324Lekpdmvdbku (Bld) [#/Vol]N/[facility] Lymphocytes/100 WBC Auto (Bld)Ordered By: Brandan Cruz on 04-16-2023 Lymphocytes/100 WBC (Bld)N/[facility] CenterLymphocytes/100 WBC Manual cnt (Bld)Ordered By: Brandan Cruz on 51-64-2651Umuxyzmknmu/100 WBC (Bld)43 %18-42[facility] HospitalH Auto (RBC) [Entitic mass] Ordered By: Brandan Cruz on 56-95-3475EYI (RBC) [Entitic mass]31.6 pg27.5-35.2 [facility] HospitalMCHC Auto (RBC) [Mass/Vol]Ordered By: Brandan Cruz on 25-51-2920CXJS (RBC) [Mass/Vol]31.8 g/dL32.5-35.6FProMedica Defiance Regional HospitalMCV Auto (RBC) [Entitic vol]Ordered By: Brandan Cruz on 60-16-8909PTW (RBC) [Entitic vol]99.3 fL83.5-101Mer[facility] HospitalMacrocytes LM Ql (Bld)Ordered By: Brandan Cruz on 93-05-4665Yyuubkcrmg Ql (Bld)MarkedMercer County Community HospitalMonocytes Auto (Bld) [#/Vol] Ordered By: Brandan Cruz on 46-73-5235Blhjplqkh (Bld) [#/Vol]N/[facility] CenterMonocytes/100 WBC Auto (Bld)Ordered By: Brandan Cruz on 00-53-2964Cxrqcjhnp/100 WBC (Bld)N/[facility] Monocytes/100 WBC Manual cnt (Bld)Ordered By: Brandan Cruz on 04-16-2023 Monocytes/100 WBC (Bld)11 %2-11Mer[facility] HospitalNeutrophils Auto (Bld) [#/Vol]Ordered By: Brandan Cruz on 75-49-9976Rnliijfoxpy (Bld) [#/Vol] NSelect Medical OhioHealth Rehabilitation HospitalNeutrophils/100 WBC Auto (Bld)Ordered By: Brandan Cruz on 61-02-6411Hdaslcrcczb/100 WBC (Bld)N/AFirelands Regional Medical CenterNo Panel InformationOrdered By: Fawad Rocha on 45-80-5225Pqx commentMercer County Community HospitalCleaned meterMercer County Community HospitalNo Panel InformationOrdered By: Pedro Gunter on .426 mL/Min [facility]14.48[facility] HospitalNucleated RBC/100 WBC Manual cnt (Bld) [Ratio]Ordered By: Brandan Cruz on 04-16-2023 Nucleated RBC/100 WBC (Bld) [Ratio]2 /100{WBC}0-0Mer[facility] HospitalNucleated erythrocytes [Presence] in Blood by Automated countOrdered By: Brandan Cruz on 16-00-1146Lvjznvcmj RBC Auto Ql (Bld)N/AFProMedica Defiance Regional HospitalPlatelet adequacy [Presence] in Blood by Light microscopyOrdered By: Brandan Cruz on 23-73-3237Plznsyqqt LM Ql (Bld)NormalNoProvidence HospitalPlatelet mean volume Auto (Bld) [Entitic vol]Ordered By: Brandan Cruz on 50-03-6303Ymcqobmn mean volume (Bld) [Entitic vol]9.6 fL 6.6-10.1FProMedica Defiance Regional HospitalPlatelet morphology finding [Identifier] in BloodOrdered By: Brandan Cruz on 86-02-3258Xlfsowia morphology finding Nom (Bld)NormalPremier HealthPlatelets Auto (Bld) [#/Vol]Ordered By: Brandan Cruz on 01-73-4362Pjufozqqx (Bld) [#/Vol]266 10*3/qW448-311TuuyoboqsMercer County Community HospitalPolychromasia [Presence] in Blood by Light microscopyOrdered By: Brandan Cruz on 32-03-4782Hgibjqdzclyey LM Ql (Bld)SlightMercer County Community HospitalPotassium [Moles/volume] in Serum or PlasmaOrdered By: Pedro Gunter on 48-53-4661Clajudgpo [Moles/Vol]4.8 mmol/L 3.5-5.1FProMedica Defiance Regional HospitalRBC Auto (Bld) [#/Vol]Ordered By: Brandan Cruz on 43-42-8821QAO (Bld) [#/Vol]2.77 10*6/uL3.90-5.60[facility] HospitalRBC morphologyOrdered By: Brandan Cruz on 03-41-3007MRS morphology finding Nom (Bld)N/[facility] Hospitalchistocytes [Presence] in Blood by Light microscopyOrdered By: Brandan Cruz on 04-16-2023 Schistocytes LM Ql (Bld)[facility] Centeregmented neutrophils/100 WBC Manual cnt (Bld)Ordered By: Brandan Cruz on 04-16-2023 Segmented neutrophils/100 WBC (Bld)41 %50-70[facility] Serum or plasma anion gap determinationOrdered By: Pedro Gunter on 91-37-2058Budqo gap [Moles/Vol]14.0 mmol/L6.0-15.0[facility]ville Hospitalodium [Moles/volume] in Serum or PlasmaOrdered By: Pedro Gunter on 02-48-0439Ksirpl [Moles/Vol]140 mmol/X748-258UjwzswpmzMercer County Community HospitalTarget cellsOrdered By: Brandan Cruz on 07-61-2604Mauuqb cells LM Ql (Bld)[facility] HealthUrea nitrogen [Mass/volume] in Serum or PlasmaOrdered By: Pedro Gunter on 61-02-9988Wplq nitrogen [Mass/Vol]51 mg/dL7-25Mer[facility] HospitalVariant lymphocytes/100 WBC Manual cnt (Bld)Ordered By: Brandan Cruz on 25-27-5245Sykvwtm lymphocytes/100 WBC (Bld)1 %0-12Mer[facility] HospitalWBC Auto (Bld) [#/Vol]Ordered By: Brandan Cruz on 86-33-8617GEU (Bld) [#/Vol]13.0 10*3/uL4.1-10.5FProMedica Defiance Regional HospitalAlanine aminotransferase [Enzymatic activity/volume] in Serum or PlasmaOrdered By: Jose M Landry on 17-84-0684ZEB [Catalytic activity/Vol]11 U/L7-52Mer[facility] HospitalAlbumin [Mass/volume] in Serum or Plasma by Bromocresol green (BCG) dye binding methoOrdered By: Jose M Landry on 45-53-5709Jszjmae BCG dye [Mass/Vol]3.5 g/dL3.5-5.7FProMedica Defiance Regional HospitalAlkaline phosphatase [Enzymatic activity/volume] in Serum or PlasmaOrdered By: Jose M Landry on 29-70-6022JYB [Catalytic activity/Vol]125 U/X41-588GcyudzwcqMercer County Community HospitalAspartate aminotransferase [Enzymatic activity/volume] in Serum or PlasmaOrdered By: Jose M Landry on 44-65-1202NVK [Catalytic activity/Vol]21 U/B75-29DuenasrjnMercer County Community HospitalBasophils Auto (Bld) [#/Vol]Ordered By: Jose M Landry on 81-83-2105Qyrdsygfk (Bld) [#/Vol]0.1 10*3/uL0.0-0.2FProMedica Defiance Regional HospitalBasophils/100 WBC Auto (Bld) Ordered By: Jose M Landry on 33-46-9740Gztmjrboz/100 WBC (Bld)1.2 %. [facility] HospitalBilirubin.total [Mass/volume] in Serum or PlasmaOrdered By: Jose M Landry on 84-09-0548Hrcbgadcs [Mass/Vol]0.3 mg/dL 0.3-1.0[facility] HospitalCalcium [Mass/volume] in Serum or Plasma Ordered By: Jose M Landry on 05-76-3417Omyfbis [Mass/Vol]7.6 mg/dL8.6-10.3 [facility] HospitalCarbon dioxide, total [Moles/volume] in Serum or PlasmaOrdered By: Jose M Landry on 99-80-6144XV8 [Moles/Vol]22.1 mmol/L 21.0-31.0[facility] HospitalChloride [Moles/volume] in Serum or PlasmaOrdered By: Jose M Landry on 98-70-7404Vazkntpf [Moles/Vol]107 mmol/L 98-107Mer[facility] HospitalCreatinine [Mass/volume] in Serum or PlasmaOrdered By: Jose M Landry on 80-30-8239Szufjofhad [Mass/Vol]6.56 mg/dL 0.70-1.30[facility] HospitalEosinophils Auto (Bld) [#/Vol]Ordered By: Jose M Landry on 51-02-8228Bhngckqydqh (Bld) [#/Vol]0.4 10*3/uL0.0-0.45 [facility] HospitalEosinophils/100 WBC Auto (Bld)Ordered By: Jose M Landry on 74-73-7741Yshwzmpdszp/100 WBC (Bld)3.8 %.[facility] HospitalErythrocyte distribution width Auto (RBC) [Ratio]Ordered By: Jose M Landry on 58-53-8100Umzywzlrnjs distribution width (RBC) [Ratio]19.0 %12.0-14.8[facility] HospitalGlobulin Calc (S) [Mass/Vol]Ordered By: Jose M Landry on 15-27-9331Ovrugfmg (S) [Mass/Vol]4.6 g/dLMercer County Community HospitalGlucose [Mass/volume] in Serum or PlasmaOrdered By: Jose M Landry on 77-98-9645Sywodop [Mass/Vol]191 mg/bZ95-893McmxhhbmwMercer County Community HospitalComment on above:ADA recommended reference rangeRandom Glucose Reference Range is dependent on time and content of last meal. Glucose of more than 200 mg/dL in a nonstressed, ambulatory subject supports the diagnosisof Diabetes Mellitus.Hematocrit Auto (Bld) [Volume fraction]Ordered By: Jose M Landry on 86-14-2240Xpouageqse (Bld) [Volume fraction]28.7 %38.8-50.0 [facility] HospitalHemoglobin [Mass/volume] in BloodOrdered By: Jose M Landry on 21-28-0703Thplwpzeap (Bld) [Mass/Vol]9.2 g/dL13.0-17.0 [facility] HospitalLeukocytes [#/volume] corrected for nucleated erythrocytes in Blood by Automated counOrdered By: Jose M Landry on 18-11-7265WCS corrected for nucl RBC Auto (Bld) [#/Vol]9.5 10*3/uL4.1-10.5 [facility] HospitalLymphocytes Auto (Bld) [#/Vol]Ordered By: Jose M Lnadry on 12-15-7302Sxjyfqcelhv (Bld) [#/Vol]3.0 10*3/uL1.00-4.8 [facility] HospitalLymphocytes/100 WBC Auto (Bld)Ordered By: Jose M Landry on 57-08-5212Espkuimjbkm/100 WBC (Bld)31.9 %.[facility] HospitalH Auto (RBC) [Entitic mass]Ordered By: Jose M Landry on 60-53-4021GGF (RBC) [Entitic mass]31.2 pg27.5-35.2FProMedica Defiance Regional HospitalMCHC Auto (RBC) [Mass/Vol]Ordered By: Jose M Landry on 27-27-5015JBJT (RBC) [Mass/Vol]32.0 g/dL32.5-35.6FProMedica Defiance Regional HospitalMCV Auto (RBC) [Entitic vol]Ordered By: Jose M Landry on 72-81-7632OHA (RBC) [Entitic vol]97.5 fL83.5-101[facility] HospitalMonocytes Auto (Bld) [#/Vol]Ordered By: Jose M Landry on 70-43-5501Uupnwxoeo (Bld) [#/Vol]0.9 10*3/uL0.0-0.8[facility] HospitalMonocytes/100 WBC Auto (Bld)Ordered By: Jose M Landry on 20-13-7682Mcohujuoz/100 WBC (Bld)9.6 %. [facility] HospitalNeutrophils Auto (Bld) [#/Vol]Ordered By: Jose M Landry on 83-77-0975Fcstsuhanqm (Bld) [#/Vol]5.1 10*3/uL1.8-7.7 [facility] HospitalNeutrophils/100 WBC Auto (Bld)Ordered By: Jose M Landry on 29-38-1485Omzkertgavy/100 WBC (Bld)53.5 %.[facility] HospitalNo Panel InformationOrdered By: Jose M Landry on 25-43-5712Wierdlesd GFR (CKD-EPI)8.317 mL/[facility] Creatinine Clearance (Chem13.17[facility]8.317 mL/[facility]13.17[facility] Nucleated erythrocytes [Presence] in Blood by Automated countOrdered By: Jose M Landry on 60-27-4175Wbzxrotrv RBC Auto Ql (Bld)0.8 /100{WBC}0-0.5FProMedica Defiance Regional HospitalParathyrin.intact [Mass/volume] in Serum or PlasmaOrdered By: Johan Taylor on 23-13-8908Ujuwmovmqb.intact [Mass/Vol]436.4 pg/mL12-88 [facility] HospitalPhosphate [Mass/volume] in Serum or Plasma Ordered By: Johan Tayolr on 67-38-6430Erddqnfzp [Mass/Vol]6.4 mg/dL2.5-4.5 [facility] HospitalPlatelet mean volume Auto (Bld) [Entitic vol] Ordered By: Jose M Landry on 76-01-6217Tymcgwsn mean volume (Bld) [Entitic vol]10.4 fL6.6-10.1FProMedica Defiance Regional HospitalPlatelets Auto (Bld) [#/Vol] Ordered By: Jose M Landry on 07-51-0067Pvleexkkz (Bld) [#/Vol]280 10*3/uL 150-450Mer[facility] Community HospitalPotassium [Moles/volume] in Serum or PlasmaOrdered By: Jose M Landry on 75-85-2455Hbkchxhtw [Moles/Vol]5.7 mmol/L 3.5-5.1FProMedica Defiance Regional HospitalProtein [Mass/volume] in Serum or Plasma Ordered By: Jose M Landry on 33-24-7773Mqhrxdd [Mass/Vol]8.1 g/dL6.4-8.9 [facility] HospitalRBC Auto (Bld) [#/Vol]Ordered By: Jose M Landry on 04-58-0806KQP (Bld) [#/Vol]2.94 10*6/uL3.90-5.60[facility]ville Hospitalerum or plasma albumin/globulin mass ratioOrdered By: Jose M Landry on 29-42-2435Qnxjirj/Globulin [Mass ratio]0.8 {ratio}[facility] Hospitalerum or plasma anion gap determinationOrdered By: Jose M Landry on 34-87-2544Yefow gap [Moles/Vol]17.6 mmol/L6.0-15.0[facility]ville Hospitalodium [Moles/volume] in Serum or PlasmaOrdered By: Jose M Landry on 39-58-9477Keiwax [Moles/Vol]141 mmol/S190-198NhtdfwcxfMercer County Community HospitalUrea nitrogen [Mass/volume] in Serum or PlasmaOrdered By: Jose M Landry on 78-60-1704Vaak nitrogen [Mass/Vol]56 mg/dL7-25Mer[facility] HospitalWBC Auto (Bld) [#/Vol]Ordered By: Jose M Landry on 48-44-3756EAI (Bld) [#/Vol]9.5 10*3/uL4.1-10.5FProMedica Defiance Regional Hospital Alanine aminotransferase [Enzymatic activity/volume] in Serum or PlasmaOrdered By: Fawad Rocha on 70-91-9606LRR [Catalytic activity/Vol]12 U/L7-52[facility] HospitalAlbumin [Mass/volume] in Serum or Plasma by Bromocresol green (BCG) dye binding methoOrdered By: Fawad Rocha on 20-21-1103Nhexigc BCG dye [Mass/Vol]3.5 g/dL3.5-5.7FProMedica Defiance Regional HospitalAlkaline phosphatase [Enzymatic activity/volume] in Serum or PlasmaOrdered By: Fawad Rocha on 32-39-5184YPE [Catalytic activity/Vol]138 U/A14-985EscvpadokMercer County Community HospitalAnisocytosis LM Ql (Bld)Ordered By: Fawad Rocha on 04-02-2023 Anisocytosis Ql (Bld)ModerateMercer County Community HospitalAspartate aminotransferase [Enzymatic activity/volume] in Serum or PlasmaOrdered By: Fawad Rocha on 09-34-2056GBD [Catalytic activity/Vol]19 U/S78-82AbpgamindMercer County Community HospitalBasophils Auto (Bld) [#/Vol]Ordered By: Fawad Rocha on 55-76-3300Nkbokhbif (Bld) [#/Vol]N/[facility] Basophils/100 WBC Auto (Bld)Ordered By: Fawad Rocha on 04-02-2023 Basophils/100 WBC (Bld)N/[facility] CenterBilirubin.total [Mass/volume] in Serum or PlasmaOrdered By: Fawad Rocha on 04-02-2023 Bilirubin [Mass/Vol]0.2 mg/dL0.3-1.0[facility] HospitalCalcium [Mass/volume] in Serum or PlasmaOrdered By: Fawad Rocha on 62-21-4509Qfwwkxb [Mass/Vol]7.4 mg/dL8.6-10.3FProMedica Defiance Regional HospitalCarbon dioxide, total [Moles/volume] in Serum or PlasmaOrdered By: Fawad Rocha on 04-02-2023 CO2 [Moles/Vol]23.4 mmol/L21.0-31.0[facility] HospitalChloride [Moles/volume] in Serum or PlasmaOrdered By: Fawad Rocha on 04-02-2023 Chloride [Moles/Vol]108 mmol/F30-463AwyizfavvMercer County Community HospitalCreatinine [Mass/volume] in Serum or PlasmaOrdered By: Fawad Rocha on 04-02-2023 Creatinine [Mass/Vol]5.55 mg/dL0.70-1.30[facility] Eosinophils Auto (Bld) [#/Vol]Ordered By: Fawad Rocha on 04-02-2023 Eosinophils (Bld) [#/Vol]N/[facility] CenterEosinophils/100 WBC Auto (Bld)Ordered By: Fawad Rocha on 45-25-4178Rcuaysxavhy/100 WBC (Bld)N/A [facility] HospitalEosinophils/100 WBC Manual cnt (Bld)Ordered By: Fawad Rocha on 81-53-6547Xgcflgbgnth/100 WBC (Bld)6 %1-3FProMedica Defiance Regional HospitalErythrocyte distribution width Auto (RBC) [Ratio]Ordered By: Fawad Rocha on 52-98-9184Glcnjzmqnfn distribution width (RBC) [Ratio]15.9 % 12.0-14.8[facility] HospitalGiant platelets/100 leukocytes [Ratio] in Blood by Manual countOrdered By: Fawad Rocha on 63-06-7097Pnevl platelets/100 WBC Manual cnt (Bld) [Ratio]1 /100{WBC}[facility] HospitalGlobulin Calc (S) [Mass/Vol]Ordered By: Fawad Rocha on 04-02-2023 Globulin (S) [Mass/Vol]4.5 g/dLMercer County Community HospitalGlucose [Mass/volume] in Serum or PlasmaOrdered By: Fawad Rocha on 03-27-7699Hxvxigt [Mass/Vol]95 mg/iK49-172HcanudjxgMercer County Community HospitalComment on above:ADA recommended reference rangeRandom Glucose Reference Range is dependent on time and content of last meal. Glucose of more than 200 mg/dL in a nonstressed, ambulatory subject supports the diagnosisof Diabetes Mellitus.Hematocrit Auto (Bld) [Volume fraction]Ordered By: Fawad Rocha on 16-37-7152Bbscvemnoc (Bld) [Volume fraction]23.3 %38.8-50.0[facility] HospitalHemoglobin [Mass/volume] in BloodOrdered By: Fawad Rocha on 05-50-9560Ekoltgybdj (Bld) [Mass/Vol]7.5 g/dL13.0-17.0[facility] HospitalHypochromia LM Ql (Bld)Ordered By: Fawad Rocha on 54-55-4587Ghczjifzecn Ql (Bld)Slight [facility] HospitalLeukocytes [#/volume] corrected for nucleated erythrocytes in Blood by Automated counOrdered By: Fawad Rocha on 04-02-2023 WBC corrected for nucl RBC Auto (Bld) [#/Vol]13.7 10*3/uL4.1-10.5FProMedica Defiance Regional HospitalLymphocytes Auto (Bld) [#/Vol]Ordered By: Fawad Rocha on 67-39-3186Ywujjdvnfpl (Bld) [#/Vol]N/[facility] Lymphocytes/100 WBC Auto (Bld)Ordered By: Fawad Rocha on 04-02-2023 Lymphocytes/100 WBC (Bld)N/[facility] CenterLymphocytes/100 WBC Manual cnt (Bld)Ordered By: Fawad Rocha on 33-54-9215Xkqlubpxyea/100 WBC (Bld)31 %18-42[facility] HospitalH Auto (RBC) [Entitic mass] Ordered By: Fawad Rocha on 73-28-9366HZA (RBC) [Entitic mass]31.0 pg 27.5-35.2FProMedica Defiance Regional HospitalMCHC Auto (RBC) [Mass/Vol]Ordered By: Fawad Rocha on 54-23-5862LRRF (RBC) [Mass/Vol]32.3 g/dL32.5-35.6FProMedica Defiance Regional HospitalMCV Auto (RBC) [Entitic vol]Ordered By: Fawad Rocha on 15-66-8856JCY (RBC) [Entitic vol]95.9 fL83.5-101Mer[facility] HospitalMonocytes Auto (Bld) [#/Vol]Ordered By: Fawad Rocha on 04-02-2023 Monocytes (Bld) [#/Vol]N/[facility] CenterMonocytes/100 WBC Auto (Bld)Ordered By: Fawad Rocha on 80-69-6188Fiocidkwi/100 WBC (Bld)N/A [facility] HospitalMonocytes/100 WBC Manual cnt (Bld)Ordered By: Fawad Rocha on 46-09-1167Autkxpzlo/100 WBC (Bld)15 %2-11Mer[facility] HospitalNeutrophils Auto (Bld) [#/Vol]Ordered By: Fawad Rocha on 87-73-1326Imchdqfjusk (Bld) [#/Vol]N/[facility] Neutrophils/100 WBC Auto (Bld)Ordered By: Fawad Rocha on 04-02-2023 Neutrophils/100 WBC (Bld)N/[facility] CenterNo Panel InformationOrdered By: Fawad Rocha on 63-80-5093Xgaetyojg GFR (CKD-EPI) 10.163 mL/MinMercer County Community HospitalPharmacy Creatinine Clearance (ChemN/[facility]10.163 mL/MinMercer County Community HospitalN/[facility] CenterNucleated RBC/100 WBC Manual cnt (Bld) [Ratio]Ordered By: Fawad Rocha on 31-06-3519Teihwbwjz RBC/100 WBC (Bld) [Ratio]1 /100{WBC}0-0Mer[facility] HospitalNucleated erythrocytes [Presence] in Blood by Automated countOrdered By: Fawad Rocha on 09-83-8200Qqjyxogqm RBC Auto Ql (Bld)N/[facility] Platelet adequacy [Presence] in Blood by Light microscopyOrdered By: Fawad Rocha on 87-75-1011Zrzbuhova LM Ql (Bld)NormalNormalMercer County Community HospitalPlatelet mean volume Auto (Bld) [Entitic vol]Ordered By: Fawad Rocha on 40-16-5728Xynkxyvh mean volume (Bld) [Entitic vol]10.1 fL6.6-10.1FProMedica Defiance Regional HospitalPlatelet morphology finding [Identifier] in BloodOrdered By: Fawad Rocha on 29-30-9556Uabboomi morphology finding Nom (Bld)N/A [facility] HospitalPlatelets Auto (Bld) [#/Vol]Ordered By: Fawad Rocha on 52-57-1191Tbcwirgrj (Bld) [#/Vol]257 10*3/tX418-832GyyyriubeMercer County Community HospitalPlatelets Large [Presence] in Blood by Light microscopy Ordered By: Fawad Rocha on 54-47-6743Nvxjeydov Large LM Ql (Bld)Slight [facility] HospitalPolychromasia [Presence] in Blood by Light microscopyOrdered By: Fawad Rocha on 47-78-0431Ltnimsuskbdrw LM Ql (Bld) SlightMercer County Community HospitalPotassium [Moles/volume] in Serum or PlasmaOrdered By: Fawad Rocha on 26-64-5304Hvplmmsms [Moles/Vol]4.8 mmol/L 3.5-5.1FProMedica Defiance Regional HospitalProtein [Mass/volume] in Serum or Plasma Ordered By: Fawad Rocha on 81-60-2654Mailbxu [Mass/Vol]8.0 g/dL6.4-8.9 [facility] HospitalRBC Auto (Bld) [#/Vol]Ordered By: Fawad Rocha on 63-21-8423AVY (Bld) [#/Vol]2.43 10*6/uL3.90-5.60[facility] HospitalRBC morphologyOrdered By: Fawad Rocha on 91-63-3085GVO morphology finding Nom (Bld)N/AFMercy Health Anderson Hospitalegmented neutrophils/100 WBC Manual cnt (Bld)Ordered By: Fawad Rocha on 04-02-2023 Segmented neutrophils/100 WBC (Bld)49 %50-70[facility] Serum or plasma albumin/globulin mass ratioOrdered By: Faawd Rocha on 94-04-8303Gqyowzn/Globulin [Mass ratio]0.8 {ratio}[facility] Hospitalerum or plasma anion gap determinationOrdered By: Fawad Rocha on 97-13-0948Qsemk gap [Moles/Vol]13.4 mmol/L6.0-15.0[facility] Hospitalodium [Moles/volume] in Serum or PlasmaOrdered By: Fawad Rocha on 89-20-1709Kyaxwr [Moles/Vol]140 mmol/F297-501VrqptveufMercer County Community Hospital Target cellsOrdered By: Fawad Rocha on 45-09-0470Uxyoee cells LM Ql (Bld) ModerateMercer County Community HospitalUrea nitrogen [Mass/volume] in Serum or PlasmaOrdered By: Fawad Rocha on 86-80-6659Trax nitrogen [Mass/Vol]47 mg/dL 7-25[facility] HospitalWBC Auto (Bld) [#/Vol]Ordered By: Fawad Rocha on 54-51-0652IME (Bld) [#/Vol]13.7 10*3/uL4.1-10.5FProMedica Defiance Regional HospitalAlanine aminotransferase [Enzymatic activity/volume] in Serum or PlasmaOrdered By: Jose M Landry on 82-74-5678KTK [Catalytic activity/Vol]9 U/L7-52[facility] HospitalAlbumin [Mass/volume] in Serum or Plasma by Bromocresol green (BCG) dye binding methoOrdered By: Jose M Landry on 57-15-2854Jrqhanv BCG dye [Mass/Vol]3.2 g/dL3.5-5.7FProMedica Defiance Regional HospitalAlkaline phosphatase [Enzymatic activity/volume] in Serum or PlasmaOrdered By: Jose M Landry on 59-48-2619TZM [Catalytic activity/Vol]117 U/L34-104 [facility] HospitalAspartate aminotransferase [Enzymatic activity/volume] in Serum or PlasmaOrdered By: Jose M Landry on 03-19-2023 AST [Catalytic activity/Vol]16 U/M95-70DabnfbgypMercer County Community Hospital Basophils Auto (Bld) [#/Vol]Ordered By: Jose M Landry on 01-22-3319Roymzayfl (Bld) [#/Vol]0.1 10*3/uL0.0-0.2FProMedica Defiance Regional HospitalBasophils/100 WBC Auto (Bld)Ordered By: JoseM Landry on 29-53-6604Itxvfdrfm/100 WBC (Bld) 0.9 %.[facility] Community HospitalBilirubin.total [Mass/volume] in Serum or PlasmaOrdered By: Jose M Landry 89-62-7784Mrezkogvd [Mass/Vol]0.2 mg/dL 0.3-1.0[facility] HospitalCalcium [Mass/volume] in Serum or Plasma Ordered By: Jose M Landry 78-74-8533Lehyuvh [Mass/Vol]7.3 mg/dL8.6-10.3 [facility] HospitalCarbon dioxide, total [Moles/volume] in Serum or PlasmaOrdered By: Jose M Landry on 14-72-3739TN4 [Moles/Vol]25.3 mmol/L 21.0-31.0[facility] HospitalChloride [Moles/volume] in Serum or PlasmaOrdered By: Jose M Landry 40-68-2505Ifdbwkwe [Moles/Vol]108 mmol/L 98-107[facility] HospitalCreatinine [Mass/volume] in Serum or PlasmaOrdered By: Jose M Landry on 95-08-6211Ubpyrmarmz [Mass/Vol]5.00 mg/dL 0.70-1.30[facility] HospitalEosinophils Auto (Bld) [#/Vol]Ordered By: Jose M Landry on 81-81-4936Gvsmtifwyop (Bld) [#/Vol]0.5 10*3/uL0.0-0.45 [facility] HospitalEosinophils/100 WBC Auto (Bld)Ordered By: Jose M Landry on 71-98-1600Mfyfevuwufu/100 WBC (Bld)4.9 %.[facility] HospitalErythrocyte distribution width Auto (RBC) [Ratio]Ordered By: Jose M Landry on 85-24-2722Bkchrduwrll distribution width (RBC) [Ratio]16.1 %12.0-14.8[facility] HospitalGlobulin Calc (S) [Mass/Vol]Ordered By: Jose M Landry 99-14-0415Gjlwyggi (S) [Mass/Vol]4.0 g/dLMercer County Community HospitalGlucose [Mass/volume] in Serum or PlasmaOrdered By: Jose M Landry 76-71-5631Cteaqsz [Mass/Vol]118 mg/tJ23-353AygkynhzmMercer County Community HospitalComment on above:ADA recommended reference rangeRandom Glucose Reference Range is dependent on time and content of last meal. Glucose of more than 200 mg/dL in a nonstressed, ambulatory subject supports the diagnosisof Diabetes Mellitus.Hematocrit Auto (Bld) [Volume fraction]Ordered By: Jose M Landry on 56-85-1041Dfvqstjrnp (Bld) [Volume fraction]23.9 %38.8-50.0 [facility] HospitalHemoglobin [Mass/volume] in BloodOrdered By: Jose M Landry on 51-05-4701Stficpywqt (Bld) [Mass/Vol]7.8 g/dL13.0-17.0 [facility] HospitalLeukocytes [#/volume] corrected for nucleated erythrocytes in Blood by Automated counOrdered By: Jose M Landry on 47-60-8709ADA corrected for nucl RBC Auto (Bld) [#/Vol]9.9 10*3/uL4.1-10.5 [facility] HospitalLymphocytes Auto (Bld) [#/Vol]Ordered By: Jose M Landry on 11-39-4873Kmbnyqzmxiy (Bld) [#/Vol]3.9 10*3/uL1.00-4.8 [facility] HospitalLymphocytes/100 WBC Auto (Bld)Ordered By: Jose M Landry on 13-95-5221Trcxkxyqvtc/100 WBC (Bld)40.0 %.[facility] Auto (RBC) [Entitic mass]Ordered By: Jose M Landry on 47-41-7354BDS (RBC) [Entitic mass]30.5 pg27.5-35.2FProMedica Defiance Regional HospitalMCHC Auto (RBC) [Mass/Vol]Ordered By: Jose M Landry on 27-63-3262MORE (RBC) [Mass/Vol]32.8 g/dL32.5-35.6FProMedica Defiance Regional HospitalMCV Auto (RBC) [Entitic vol]Ordered By: Jose M Landry on 83-41-0701YGD (RBC) [Entitic vol]93.0 fL83.5-101[facility] HospitalMonocytes Auto (Bld) [#/Vol]Ordered By: Jose M Landry on 07-79-0636Vymcyhfbo (Bld) [#/Vol]0.8 10*3/uL0.0-0.8[facility] HospitalMonocytes/100 WBC Auto (Bld)Ordered By: Jose M Landry on 43-99-6744Wmbswjdai/100 WBC (Bld)8.5 %. [facility] HospitalNeutrophils Auto (Bld) [#/Vol]Ordered By: Jose M Landry on 91-25-9405Bbskcwqscsj (Bld) [#/Vol]4.5 10*3/uL1.8-7.7 [facility] HospitalNeutrophils/100 WBC Auto (Bld)Ordered By: Jose M Landry on 19-05-4160Blewlduunlf/100 WBC (Bld)45.7 %.[facility] HospitalNo Panel InformationOrdered By: Jose M Landry on 06-94-7070Prcbrdtdd GFR (CKD-EPI)11.592 mL/[facility] Creatinine Clearance (ChemN/[facility]11.592 mL/[facility] CampusN/[facility] Nucleated erythrocytes [Presence] in Blood by Automated countOrdered By: Jose M Landry on 96-83-1208Puqnembkl RBC Auto Ql (Bld)0.1 /100{WBC}0-0.5FProMedica Defiance Regional HospitalPlatelet mean volume Auto (Bld) [Entitic vol]Ordered By: Jose M Landry on 63-78-4771Jtmhdpnk mean volume (Bld) [Entitic vol]10.8 fL 6.6-10.1FProMedica Defiance Regional HospitalPlatelets Auto (Bld) [#/Vol]Ordered By: Jose M Landry on 28-15-0238Ejriarcia (Bld) [#/Vol]207 10*3/dO715-772 [facility] HospitalPotassium [Moles/volume] in Serum or Plasma Ordered By: Jose M Landry on 01-11-4911Zbmhhuzif [Moles/Vol]4.5 mmol/L 3.5-5.1FProMedica Defiance Regional HospitalProtein [Mass/volume] in Serum or Plasma Ordered By: Jose M Landry on 66-96-7713Yomcjdp [Mass/Vol]7.2 g/dL6.4-8.9 [facility] HospitalRBC Auto (Bld) [#/Vol]Ordered By: Jose M Landry on 73-63-1610GGL (Bld) [#/Vol]2.57 10*6/uL3.90-5.60[facility] Hospitalerum or plasma albumin/globulin mass ratioOrdered By: Jose M Landry on 20-43-5741Spvqgqk/Globulin [Mass ratio]0.8 {ratio}[facility] Hospitalerum or plasma anion gap determinationOrdered By: Jose M Landry on 86-26-8687Sdybg gap [Moles/Vol]13.2 mmol/L6.0-15.0[facility] Hospitalodium [Moles/volume] in Serum or PlasmaOrdered By: Jose M Landry on 75-90-7809Ksjrga [Moles/Vol]142 mmol/T224-257PqvwgizalMercer County Community HospitalUrea nitrogen [Mass/volume] in Serum or PlasmaOrdered By: Jose M Landry on 31-21-8889Syzr nitrogen [Mass/Vol]48 mg/dL7-25[facility] HospitalWBC Auto (Bld) [#/Vol]Ordered By: Jose M Landry on 55-10-2698YZK (Bld) [#/Vol]9.9 10*3/uL4.1-10.5FProMedica Defiance Regional Hospital Cholesterol [Mass/volume] in Serum or PlasmaOrdered By: Mervat Santiago on 48-89-5850Iuzeqmdyvvr [Mass/Vol]123 mg/jZ312-627RlsxgkuiaMercer County Community HospitalComment on above:Chol less than 200 mg/dl low riskChol 201-239 mg/dl borderline riskChol 240 mg/dl and greater high riskCholesterol in LDL Calc [Mass/Vol]Ordered By: Mervat Santiago on 54-19-0443Guvshnefebd in LDL [Mass/Vol]43 mg/dL0-100Mer[facility] HospitalComment on above:LDL ATP III CLASSIFICATIONLDL less than 100 mg/dL OptimalLDL 100-129 mg/dL Near or above xkkzrusIYN224-973 mg/dL Borderline highLDL 160-189 mg/dL HighLDL greater than 189 mg/dL Very highCholesterol in VLDL Calc [Mass/Vol]Ordered By: Mervat Santiago on 11-25-6233Rxlewrwcxme in VLDL [Mass/Vol]13 mg/dLBarnesville Hospitalerum or plasma high density lipoprotein (HDL) cholesterol measurement Ordered By: Mervat Santiago on 36-55-7664Ydpqozgdkhv in HDL [Mass/Vol]66 mg/dL23-92 [facility] HospitalComment on above:HDL CHOL ATP-III CLASSIFICATION Cardiovascular RiskHDL > or equal to 60 mg/dL LOWHDL < 40 mg/dL HIGHSerum or plasma total cholesterol/high density lipoprotein (HDL) cholesterol mass ratOrdered By: Mervat Santiago on 96-48-7325Ugqgxkezyht.total/Cholesterol in HDL [Mass ratio]1.9 {ratio}<5.0[facility] HospitalThyrotropin [Units/volume] in Serum or PlasmaOrdered By: Mervat Santiago on 67-74-7020BTE Qn 5.24 m[IU]/L0.45-5.33[facility] HospitalTriglyceride [Mass/volume] in Serum or PlasmaOrdered By: Mervat Santiago on 22-75-3243Mxcqldcptpdb [Mass/Vol] 69 mg/dL0-149Mer[facility] HospitalComment on above:TRIG ATP III CLASSIFICATIONTRIG less than 150 mg/dL NormalTRIG 150-199 mg/dL Borderline highTRIG 200-500 mg/dL High TRIG greater than 500 mg/dL Very highStandard traceable to the Center for Disease Conrtrol and Prevention (CDC) test method. Vitamin D+Metabolites [Mass/volume] in Serum or PlasmaOrdered By: Mervat Santiago on 58-46-7964Hooufst D+Metabolites [Mass/Vol]See jluabkz70-101VrkauqnobMercer County Community HospitalComment on above:Specimen hemolyzed, redraw requestedVITAMIN D STATUS 25(OH)VITAMIN D RANGE (ng/mL) Deficient <20Insufficient 20 to <30Sufficient 30 to 100Reference: Waylon MF,Xavier NC, [place] RIOS, et al. Evaluation,treatment, and prevention of vitamin D deficiency; an Endocrine Society clinical practice guideline. JCEM. 2010; 96(7):1911-30.Alanine aminotransferase [Enzymatic activity/volume] in Serum or PlasmaOrdered By: Jose M Landry on 15-03-8489GBU [Catalytic activity/Vol]10 U/L7-52[facility] HospitalAlbumin [Mass/volume] in Serum or Plasma by Bromocresol green (BCG) dye binding methoOrdered By: Jose M Landry on 82-17-8686Nkvifpy BCG dye [Mass/Vol]3.4 g/dL3.5-5.7FProMedica Defiance Regional HospitalAlkaline phosphatase [Enzymatic activity/volume] in Serum or PlasmaOrdered By: oJse M Landry on 77-96-2253ZLA [Catalytic activity/Vol]157 U/T66-549OuobizqabMercer County Community HospitalAspartate aminotransferase [Enzymatic activity/volume] in Serum or PlasmaOrdered By: Jose M Landry on 15-32-4624MOX [Catalytic activity/Vol]16 U/V64-32CglxvbodjMercer County Community HospitalBasophils Auto (Bld) [#/Vol]Ordered By: Jose M Landry on 11-67-8702Lofiwjznm (Bld) [#/Vol]0.1 10*3/uL0.0-0.2FProMedica Defiance Regional HospitalBasophils/100 WBC Auto (Bld) Ordered By: Jose M Landry on 61-78-3514Skvlkhurc/100 WBC (Bld)1.1 %. [facility] HospitalBilirubin.total [Mass/volume] in Serum or PlasmaOrdered By: Jose M Landry on 64-90-8342Pzljrqgfp [Mass/Vol]0.3 mg/dL 0.3-1.0[facility] HospitalCalcium [Mass/volume] in Serum or Plasma Ordered By: Jose M Landry 93-45-3430Nigmilg [Mass/Vol]7.6 mg/dL8.6-10.3 [facility] HospitalCarbon dioxide, total [Moles/volume] in Serum or PlasmaOrdered By: Jose M Landry 03-57-7250QK6 [Moles/Vol]23.4 mmol/L 21.0-31.0[facility] HospitalChloride [Moles/volume] in Serum or PlasmaOrdered By: Jose M Landry 10-08-4610Zrnhvbzp [Moles/Vol]107 mmol/L 98-107[facility] HospitalCreatinine [Mass/volume] in Serum or PlasmaOrdered By: Jose M Landry on 21-41-5056Jonifrrgva [Mass/Vol]4.93 mg/dL 0.70-1.30[facility] HospitalEosinophils Auto (Bld) [#/Vol]Ordered By: Jose M Landry on 88-42-1798Psydyfeenlo (Bld) [#/Vol]0.7 10*3/uL0.0-0.45 [facility] HospitalEosinophils/100 WBC Auto (Bld)Ordered By: Jose M Landry on 26-23-0023Eljdfaqxizl/100 WBC (Bld)5.3 %.[facility] HospitalErythrocyte distribution width Auto (RBC) [Ratio]Ordered By: Jose M Landry on 53-45-2387Cheltssyhvp distribution width (RBC) [Ratio]16.2 %12.0-14.8[facility] HospitalGlobulin Calc (S) [Mass/Vol]Ordered By: Jose M Landry on 21-83-9758Ftifeycs (S) [Mass/Vol]4.2 g/dLMercer County Community HospitalGlucose [Mass/volume] in Serum or PlasmaOrdered By: Jose M Landry on 01-07-6120Ksyykno [Mass/Vol]88 mg/mY61-943LtvbdzjtrMercer County Community HospitalComment on above:ADA recommended reference rangeRandom Glucose Reference Range is dependent on time and content of last meal. Glucose of more than 200 mg/dL in a nonstressed, ambulatory subject supports the diagnosisof Diabetes Mellitus.Hematocrit Auto (Bld) [Volume fraction]Ordered By: Jose M Landry on 74-19-9570Pglphlfwiy (Bld) [Volume fraction]26.6 %38.8-50.0 [facility] HospitalHemoglobin [Mass/volume] in BloodOrdered By: Jose M Landry on 19-03-8618Oafglrxdcr (Bld) [Mass/Vol]8.6 g/dL13.0-17.0 [facility] HospitalLeukocytes [#/volume] corrected for nucleated erythrocytes in Blood by Automated counOrdered By: Jose M Landry on 93-23-3466RUI corrected for nucl RBC Auto (Bld) [#/Vol]13.1 10*3/uL4.1-10.5 [facility] HospitalLymphocytes Auto (Bld) [#/Vol]Ordered By: Jose M Landry on 38-49-0143Peykwfjhane (Bld) [#/Vol]4.9 10*3/uL1.00-4.8 [facility] HospitalLymphocytes/100 WBC Auto (Bld)Ordered By: Jose M Landry on 67-88-7320Knxjzhgpkmh/100 WBC (Bld)37.1 %.[facility]H Auto (RBC) [Entitic mass]Ordered By: Jose M Landry on 16-20-4193IAU (RBC) [Entitic mass]30.0 pg27.5-35.2FProMedica Defiance Regional HospitalMCHC Auto (RBC) [Mass/Vol]Ordered By: Jose M Landry on 45-49-2060USJL (RBC) [Mass/Vol]32.4 g/dL32.5-35.6FProMedica Defiance Regional HospitalMCV Auto (RBC) [Entitic vol]Ordered By: Jose M Landry on 72-54-1433DKB (RBC) [Entitic vol]92.7 fL83.5-101[facility] HospitalMonocytes Auto (Bld) [#/Vol]Ordered By: Jose M Landry on 25-42-9588Sawrrvjad (Bld) [#/Vol]1.3 10*3/uL0.0-0.8[facility] HospitalMonocytes/100 WBC Auto (Bld)Ordered By: Jose M Landry on 80-44-3885Vbootgzaw/100 WBC (Bld)9.9 %. [facility] HospitalNeutrophils Auto (Bld) [#/Vol]Ordered By: Jose M Landry on 12-28-5712Hyewdcfldre (Bld) [#/Vol]6.1 10*3/uL1.8-7.7 [facility] HospitalNeutrophils/100 WBC Auto (Bld)Ordered By: Jose M Landry on 43-76-8440Nyxyjsdhmdc/100 WBC (Bld)46.6 %.[facility] HospitalNo Panel InformationOrdered By: Jose M Landry on 38-14-2034Zhlntmhfv GFR (CKD-EPI)11.789 mL/MinMercer County Community Hospital [facility] Creatinine Clearance (Chem17.79[facility] Nucleated erythrocytes [Presence] in Blood by Automated countOrdered By: Jose M Landry on 15-78-2547Ybehnibao RBC Auto Ql (Bld)0.1 /100{WBC}0-0.5FProMedica Defiance Regional HospitalPlatelet mean volume Auto (Bld) [Entitic vol]Ordered By: Jose M Landry on 15-55-4806Xqgbouys mean volume (Bld) [Entitic vol]10.8 fL 6.6-10.1FProMedica Defiance Regional HospitalPlatelets Auto (Bld) [#/Vol]Ordered By: Jose M Landry on 36-63-5363Ohrggfjpt (Bld) [#/Vol]197 10*3/mL375-215 [facility] HospitalPotassium [Moles/volume] in Serum or Plasma Ordered By: Jose M Landry on 52-18-9888Cgdtsikzk [Moles/Vol]5.3 mmol/L 3.5-5.1FProMedica Defiance Regional HospitalProtein [Mass/volume] in Serum or Plasma Ordered By: Jose M Landry on 27-43-4191Lbylxve [Mass/Vol]7.6 g/dL6.4-8.9 [facility] HospitalRBC Auto (Bld) [#/Vol]Ordered By: Jose M Landry on 74-55-4623ZEW (Bld) [#/Vol]2.88 10*6/uL3.90-5.60[facility] Hospitalerum or plasma albumin/globulin mass ratioOrdered By: Jose M Landry on 14-07-3440Fhpmuhv/Globulin [Mass ratio]0.8 {ratio}[facility] Hospitalerum or plasma anion gap determinationOrdered By: Jose M Landry on 03-67-6948Cszxp gap [Moles/Vol]14.9 mmol/L6.0-15.0[facility] Hospitalodium [Moles/volume] in Serum or PlasmaOrdered By: Jose M Landry on 96-39-6853Gzqmya [Moles/Vol]140 mmol/L098-415RjwvtuodpMercer County Community HospitalUrea nitrogen [Mass/volume] in Serum or PlasmaOrdered By: Jose M Landyr on 52-40-2953Bcbl nitrogen [Mass/Vol]58 mg/dL7-25Mer[facility] HospitalWBC Auto (Bld) [#/Vol]Ordered By: Jose M Landry on 07-51-0064YBF (Bld) [#/Vol]13.1 10*3/uL4.1-10.5FProMedica Defiance Regional Hospital Alanine aminotransferase [Enzymatic activity/volume] in Serum or PlasmaOrdered By: Johan Taylor on 95-44-8361ERY [Catalytic activity/Vol]14 U/L7-52[facility] HospitalAlbumin [Mass/volume] in Serum or Plasma by Bromocresol green (BCG) dye binding methoOrdered By: Johan Taylor on 97-02-5529Dqjycei BCG dye [Mass/Vol]3.5 g/dL3.5-5.7FProMedica Defiance Regional HospitalAlkaline phosphatase [Enzymatic activity/volume] in Serum or PlasmaOrdered By: Johan Taylor on 76-08-6281TUE [Catalytic activity/Vol]192 U/B43-808TspwtztprMercer County Community HospitalAspartate aminotransferase [Enzymatic activity/volume] in Serum or PlasmaOrdered By: Johan Taylor on 10-24-4329YAM [Catalytic activity/Vol]25 U/L 13-39[facility] HospitalBilirubin.total [Mass/volume] in Serum or PlasmaOrdered By: Johan Taylor 72-39-0819Cvibwrclu [Mass/Vol]0.3 mg/dL0.3-1.0 [facility] HospitalCalcium [Mass/volume] in Serum or PlasmaOrdered By: Johan Taylor 06-79-6643Ijqdfzk [Mass/Vol]8.0 mg/dL8.6-10.3FProMedica Defiance Regional HospitalCarbon dioxide, total [Moles/volume] in Serum or Plasma Ordered By: Johan Taylor 56-46-6018SL6 [Moles/Vol]24.7 mmol/L21.0-31.0 [facility] HospitalChloride [Moles/volume] in Serum or Plasma Ordered By: Johan Taylor 72-25-4979Ddzbfwsl [Moles/Vol]107 mmol/L98-107 [facility] HospitalCreatinine [Mass/volume] in Serum or Plasma Ordered By: Johan Taylor on 50-65-0477Mmbdsipkyq [Mass/Vol]4.80 mg/dL0.70-1.30 [facility] HospitalCreatinine [Mass/volume] in UrineOrdered By: Johan Taylor 30-03-1355Jpgzvylfhm (U) [Mass/Vol]42.0 mg/dL14.0-26.0[facility] HospitalErythrocyte distribution width Auto (RBC) [Ratio]Ordered By: Johan Taylor 04-20-3335Bnopmpmqigg distribution width (RBC) [Ratio]16.6 % 12.0-14.8[facility] HospitalGlobulin Calc (S) [Mass/Vol]Ordered By: Johan Taylor 04-53-5005Jzwuyjyf (S) [Mass/Vol]4.2 g/dLMercer County Community HospitalGlucose [Mass/volume] in Serum or PlasmaOrdered By: Johan Taylor 34-70-2908Ynskbbe [Mass/Vol]100 mg/yN50-086KubsinnycMercer County Community Hospital Comment on above:ADA recommended reference rangeRandom Glucose Reference Range is dependent on time and content of last meal. Glucose of more than 200 mg/dL in a nonstressed, ambulatory subject supports the diagnosisof Diabetes Mellitus. Hematocrit Auto (Bld) [Volume fraction]Ordered By: Johan Taylor on 02-07-2023 Hematocrit (Bld) [Volume fraction]30.9 %38.8-50.0[facility] HospitalHemoglobin [Mass/volume] in BloodOrdered By: Johan Taylor 02-07-2023 Hemoglobin (Bld) [Mass/Vol]9.8 g/dL13.0-17.0[facility] Leukocytes [#/volume] corrected for nucleated erythrocytes in Blood by Automated counOrdered By: Johan Taylor 20-12-1597NLT corrected for nucl RBC Auto (Bld) [#/Vol]12.6 10*3/uL4.1-10.5FMercy Memorial Hospital Auto (RBC) [Entitic mass]Ordered By: Jhoan Taylor 38-61-1020LIX (RBC) [Entitic mass]29.7 pg27.5-35.2FOhioHealth Southeastern Medical Center Auto (RBC) [Mass/Vol]Ordered By: Johan Taylor on 89-88-3522TKAL (RBC) [Mass/Vol]31.7 g/dL32.5-35.6FProMedica Defiance Regional HospitalMCV Auto (RBC) [Entitic vol]Ordered By: Johan Taylor on 27-39-7123WWF (RBC) [Entitic vol]93.9 fL83.5-101[facility] HospitalNo Panel InformationOrdered By: Johan Taylor on 35-32-9613Sdmaslmzt GFR (CKD-EPI)12.173 mL/MinMercer County Community HospitalPharmacy Creatinine Clearance (ChemN/[facility]12.173 mL/[facility]N/[facility] CenterParathyrin.intact [Mass/volume] in Serum or PlasmaOrdered By: Johan Taylor on 02-07-2023 Parathyrin.intact [Mass/Vol]351.9 pg/xX74-02LuxgoxdvkMercer County Community Hospital Phosphate [Mass/volume] in Serum or PlasmaOrdered By: Johan Taylor on 02-07-2023 Phosphate [Mass/Vol]6.7 mg/dL3.7-7.2FProMedica Defiance Regional HospitalPlatelet mean volume Auto (Bld) [Entitic vol]Ordered By: Johan Taylor on 02-07-2023 Platelet mean volume (Bld) [Entitic vol]11.0 fL6.6-10.1FProMedica Defiance Regional HospitalPlatelets Auto (Bld) [#/Vol]Ordered By: Johan Taylor on 02-07-2023 Platelets (Bld) [#/Vol]201 10*3/mY517-594CqxnuscasMercer County Community Hospital Potassium [Moles/volume] in Serum or PlasmaOrdered By: Johan Taylor on 67-37-6117Mjfyfigte [Moles/Vol]5.1 mmol/L3.5-5.1FProMedica Defiance Regional HospitalProtein [Mass/volume] in Serum or PlasmaOrdered By: Johan Taylor on 89-64-1419Ypwhhxm [Mass/Vol]7.7 g/dL6.4-8.9[facility] Protein [Mass/volume] in UrineOrdered By: Johan Taylor on 85-35-1237Gjhuote (U) [Mass/Vol]447 mg/dL0-9[facility] HospitalRBC Auto (Bld) [#/Vol] Ordered By: Johan Taylor on 52-17-8863MXE (Bld) [#/Vol]3.29 10*6/uL3.90-5.60 [facility] Hospitalerum or plasma albumin/globulin mass ratio Ordered By: Johan Taylor on 26-46-4683Uslqbji/Globulin [Mass ratio]0.8 {ratio} [facility] Hospitalerum or plasma anion gap determinationOrdered By: Johan Taylor on 58-54-8645Migxm gap [Moles/Vol]13.4 mmol/L6.0-15.0[facility] Hospitalodium [Moles/volume] in Serum or PlasmaOrdered By: Johan Taylor on 06-97-5880Hskukj [Moles/Vol]140 mmol/R381-820HyjtrslejMercer County Community HospitalUrea nitrogen [Mass/volume] in Serum or PlasmaOrdered By: Johan Taylor on 13-62-1298Tegy nitrogen [Mass/Vol]49 mg/dL7-25[facility] HospitalUrine protein/creatinine ratioOrdered By: Johan Taylor on 84-20-6036Qspwzdd/Creatinine (U) [Ratio]10529 mg/g{Cre}0-200[facility] HospitalAnisocytosis LM Ql (Bld)Ordered By: Maddie Dixon on 01-29-2023 Anisocytosis Ql (Bld)ModerateMercer County Community HospitalBasophils Auto (Bld) [#/Vol]Ordered By: Maddie Dixon on 57-80-9162Utncwvnsr (Bld) [#/Vol]N/A [facility] HospitalBasophils/100 WBC Auto (Bld)Ordered By: Maddie Dixon on 52-03-8037Gectvziie/100 WBC (Bld)N/[facility] CenterEosinophils Auto (Bld) [#/Vol]Ordered By: Maddie Dixon on 01-29-2023 Eosinophils (Bld) [#/Vol]N/AFProMedica Defiance Regional HospitalEosinophils/100 WBC Auto (Bld)Ordered By: Maddie Dixon on 48-61-8714Uifwvpsioup/100 WBC (Bld)N/A [facility] HospitalEosinophils/100 WBC Manual cnt (Bld)Ordered By: Maddie Dixon on 04-41-0780Zgsvkhvxmon/100 WBC (Bld)6 %1-3FProMedica Defiance Regional HospitalErythrocyte distribution width Auto (RBC) [Ratio]Ordered By: Maddie Dixon on 96-61-1495Wblvkxmoweb distribution width (RBC) [Ratio]16.6 % 12.0-14.8[facility] HospitalGiant platelets/100 leukocytes [Ratio] in Blood by Manual countOrdered By: Maddie Dixon on 47-07-2839Vkfho platelets/100 WBC Manual cnt (Bld) [Ratio]4 /100{WBC}[facility] HospitalHematocrit Auto (Bld) [Volume fraction]Ordered By: Maddie Dixon on 95-69-9613Ydaujffmbb (Bld) [Volume fraction]31.6 %38.8-50.0[facility] HospitalHemoglobin [Mass/volume] in BloodOrdered By: Maddie Dixon on 89-16-2553Esqrsneiit (Bld) [Mass/Vol]10.2 g/dL13.0-17.0[facility] HospitalHypochromia LM Ql (Bld)Ordered By: Maddie Dixon on 01-29-2023 Hypochromia Ql (Bld)SlightMercer County Community HospitalLeukocytes [#/volume] corrected for nucleated erythrocytes in Blood by Automated counOrdered By: Maddie Dixon on 44-82-6025MGG corrected for nucl RBC Auto (Bld) [#/Vol]11.0 10*3/uL 4.1-10.5FProMedica Defiance Regional HospitalLymphocytes Auto (Bld) [#/Vol]Ordered By: Maddie Dixon on 17-87-5836Ymlelpadqsl (Bld) [#/Vol]N/AFProMedica Defiance Regional HospitalLymphocytes/100 WBC Auto (Bld)Ordered By: Madide Dixon on 88-93-4217Yamhzfdbgsz/100 WBC (Bld)N/[facility] Lymphocytes/100 WBC Manual cnt (Bld)Ordered By: Maddie Dixon on 01-29-2023 Lymphocytes/100 WBC (Bld)40 %18-42[facility] HospitalMCH Auto (RBC) [Entitic mass]Ordered By: Maddie Dixon on 30-96-6151ZQR (RBC) [Entitic mass]30.6 pg27.5-35.2FProMedica Defiance Regional HospitalMCHC Auto (RBC) [Mass/Vol] Ordered By: Maddie Dixon on 30-32-3038KTUV (RBC) [Mass/Vol]32.4 g/dL32.5-35.6 [facility] HospitalMCV Auto (RBC) [Entitic vol]Ordered By: Maddie Dixon on 22-43-8825QKD (RBC) [Entitic vol]94.5 fL83.5-101[facility] HospitalMonocytes Auto (Bld) [#/Vol]Ordered By: Maddie Dixon on 47-57-6017Pmcpdoszz (Bld) [#/Vol]N/[facility] Monocytes/100 WBC Auto (Bld)Ordered By: Maddie Dixon on 03-39-1878Aetecfdiq/100 WBC (Bld)N/[facility] CenterMonocytes/100 WBC Manual cnt (Bld) Ordered By: Maddie Dixon on 31-83-7842Nllsyiiaj/100 WBC (Bld)15 %2-11[facility] HospitalNeutrophils Auto (Bld) [#/Vol]Ordered By: Maddie Dixon on 58-97-5171Qdjmmidautp (Bld) [#/Vol]N/[facility] Neutrophils/100 WBC Auto (Bld)Ordered By: Maddie Dixon on 01-29-2023 Neutrophils/100 WBC (Bld)/[facility] CenterNucleated erythrocytes [Presence] in Blood by Automated countOrdered By: Maddie Dixon on 09-21-0938Inuyblblk RBC Auto Ql (Bld)N/[facility] Platelet adequacy [Presence] in Blood by Light microscopyOrdered By: Maddie Dixon on 67-41-5305Qqrauhxmu LM Ql (Bld)NormalNormParkwood HospitalPlatelet mean volume Auto (Bld) [Entitic vol]Ordered By: Maddie Dixon on 52-08-2372Ohanivhu mean volume (Bld) [Entitic vol]11.0 fL6.6-10.1 [facility] HospitalPlatelet morphology finding [Identifier] in BloodOrdered By: Maddie Dixon on 78-55-3732Takxiyvz morphology finding Nom (Bld)NormalNormParkwood HospitalPlatelets Auto (Bld) [#/Vol] Ordered By: Maddie Dixon on 86-29-9931Clcqfubhh (Bld) [#/Vol]215 10*3/bS053-305 [facility] HospitalPoikilocytosis [Presence] in Blood by Light microscopyOrdered By: Maddie Dixon on 00-87-0770Gxlzksumzbvfmy LM Ql (Bld) [facility] HealthPolychromasia [Presence] in Blood by Light microscopyOrdered By: Maddie Dixon on 35-29-7469Luoxvwxczabpg LM Ql (Bld) [facility] HealthRB Auto (Bld) [#/Vol]Ordered By: Maddie Dixon on 98-34-4212RLL (Bld) [#/Vol]3.34 10*6/uL3.90-5.60[facility] morphologyOrdered By: Maddie Dixon on 63-30-7239HMW morphology finding Nom (Bld)N/AFMercy Health Anderson Hospitalchistocytes [Presence] in Blood by Light microscopyOrdered By: Maddie Dixon on 01-29-2023 Schistocytes LM Ql (Bld)[facility] Centeregmented neutrophils/100 WBC Manual cnt (Bld)Ordered By: Maddie Dixon on 01-29-2023 Segmented neutrophils/100 WBC (Bld)38 %50-70[facility] Target cellsOrdered By: Maddie Dixon on 38-66-2680Izluyu cells LM Ql (Bld) [facility] CenterVariant lymphocytes/100 WBC Manual cnt (Bld)Ordered By: Maddie Dixon on 11-92-3234Mrlyvae lymphocytes/100 WBC (Bld)1 % 0-12[facility] HospitalWBC Auto (Bld) [#/Vol]Ordered By: Maddie Daniellux on 68-43-4387NHP (Bld) [#/Vol]11.0 10*3/uL4.1-10.5FProMedica Defiance Regional HospitalAlanine aminotransferase [Enzymatic activity/volume] in Serum or PlasmaOrdered By: Jose M Landry on 45-20-9481HPQ [Catalytic activity/Vol]14 U/L7-52[facility] HospitalAlbumin [Mass/volume] in Serum or Plasma by Bromocresol green (BCG) dye binding methoOrdered By: Jose M Landry on 78-83-9392Ooqitmy BCG dye [Mass/Vol]3.6 g/dL3.5-5.7FProMedica Defiance Regional HospitalAlkaline phosphatase [Enzymatic activity/volume] in Serum or PlasmaOrdered By: Jose M Landry on 35-47-4920VGV [Catalytic activity/Vol]192 U/L34-104 [facility] HospitalAnisocytosis LM Ql (Bld)Ordered By: Jose M Landry on 91-99-0582Ksxddepwnugo Ql (Bld)MarkedMercer County Community HospitalAspartate aminotransferase [Enzymatic activity/volume] in Serum or Plasma Ordered By: Jose M Landry on 01-53-7463ZXO [Catalytic activity/Vol]22 U/L 13-39[facility] HospitalBand form neutrophils/100 WBC Manual cnt (Bld)Ordered By: Jose M Landry on 80-14-1388Dowf form neutrophils/100 WBC (Bld)1 %0-[facility] HospitalBasophils Auto (Bld) [#/Vol]Ordered By: Jose M Landry on 95-48-5623Soreosupg (Bld) [#/Vol]N/[facility] CenterBasophils/100 WBC Auto (Bld)Ordered By: Jose M Landry on 37-88-7193Xmphrqgvw/100 WBC (Bld)N/[facility] Bilirubin.total [Mass/volume] in Serum or PlasmaOrdered By: Jose M Landry on 18-91-8556Vjzyrobik [Mass/Vol]0.4 mg/dL0.3-1.0[facility] Calcium [Mass/volume] in Serum or PlasmaOrdered By: Jose M Landry on 74-24-3837Qnwjylj [Mass/Vol]8.1 mg/dL8.6-10.3FProMedica Defiance Regional Hospital Carbon dioxide, total [Moles/volume] in Serum or PlasmaOrdered By: Jose M Landry on 67-94-7751BJ0 [Moles/Vol]24.6 mmol/L21.0-31.0[facility] HospitalChloride [Moles/volume] in Serum or PlasmaOrdered By: Jose M Landry on 62-89-6619Xvxcpaiv [Moles/Vol]105 mmol/Z45-755YwyvvgqnvMercer County Community HospitalCreatinine [Mass/volume] in Serum or PlasmaOrdered By: Jose M Landry on 31-14-6815Knjfpqxtjj [Mass/Vol]3.96 mg/dL0.70-1.30[facility] HospitalEosinophils Auto (Bld) [#/Vol]Ordered By: Jose M Landry on 91-72-3234Miradhywaan (Bld) [#/Vol]N/[facility] CenterEosinophils/100 WBC Auto (Bld)Ordered By: Jose M Landry on 01-15-2023 Eosinophils/100 WBC (Bld)N/[facility] CenterEosinophils/100 WBC Manual cnt (Bld)Ordered By: Jose M Landry on 22-04-3993Eykdkmfkpsa/100 WBC (Bld)6 %1-3FProMedica Defiance Regional HospitalErythrocyte distribution width Auto (RBC) [Ratio]Ordered By: Jose M Landry on 10-97-4617Hodkvxtjdoc distribution width (RBC) [Ratio]17.4 %12.0-14.8[facility] HospitalGiant platelets/100 leukocytes [Ratio] in Blood by Manual countOrdered By: Jose M Landry on 13-78-8701Tejvw platelets/100 WBC Manual cnt (Bld) [Ratio]5 /100{WBC}[facility] HospitalGlobulin Calc (S) [Mass/Vol]Ordered By: Jose M Landry on 93-04-4386Yxpejrvm (S) [Mass/Vol]4.3 g/dLMercer County Community HospitalGlucose [Mass/volume] in Serum or PlasmaOrdered By: Jose M Landry on 16-80-8722Pbetsjv [Mass/Vol]222 mg/kX48-932OqvxehzbuMercer County Community HospitalComment on above:ADA recommended reference rangeRandom Glucose Reference Range is dependent on time and content of last meal. Glucose of more than 200 mg/dL in a nonstressed, ambulatory subject supports the diagnosisof Diabetes Mellitus.Hematocrit Auto (Bld) [Volume fraction]Ordered By: Jose M Landry on 02-44-0265Wjgrrzmciw (Bld) [Volume fraction]32.5 %38.8-50.0 [facility] HospitalHemoglobin [Mass/volume] in BloodOrdered By: Jose M Landry on 55-15-8582Akzsixiupi (Bld) [Mass/Vol]10.4 g/dL13.0-17.0 [facility] HospitalHypochromia LM Ql (Bld)Ordered By: Jose M Landry on 78-99-6654Mqbhwaxazge Ql (Bld)ModerateMercer County Community HospitalLeukocytes [#/volume] corrected for nucleated erythrocytes in Blood by Automated counOrdered By: Jose M Landry on 93-64-8199VLU corrected for nucl RBC Auto (Bld) [#/Vol]12.5 10*3/uL4.1-10.5FProMedica Defiance Regional Hospital Lymphocytes Auto (Bld) [#/Vol]Ordered By: Jose M Landry on 01-15-2023 Lymphocytes (Bld) [#/Vol]N/[facility] CenterLymphocytes/100 WBC Auto (Bld)Ordered By: Jose M Landry on 59-47-4931Gnnjxauvvgh/100 WBC (Bld) N/[facility] CenterLymphocytes/100 WBC Manual cnt (Bld)Ordered By: Jose M Landry on 40-63-1027Sgupglxlfoa/100 WBC (Bld)27 %18-42[facility] HospitalMCH Auto (RBC) [Entitic mass]Ordered By: Jose M Landry on 26-17-4583ULC (RBC) [Entitic mass]30.5 pg27.5-35.2FProMedica Defiance Regional HospitalMCHC Auto (RBC) [Mass/Vol]Ordered By: Jose M Landry on 84-96-9889CMNW (RBC) [Mass/Vol]31.9 g/dL32.5-35.6FProMedica Defiance Regional HospitalMCV Auto (RBC) [Entitic vol]Ordered By: Jose M Landry on 43-91-6229SRI (RBC) [Entitic vol]95.6 fL83.5-101[facility] HospitalMacrocytes LM Ql (Bld)Ordered By: Jose M Landry on 61-70-7959Qyikddoiop Ql (Bld)Moderate [facility] HospitalMonocytes Auto (Bld) [#/Vol]Ordered By: Jose M Landry on 77-72-7450Nvdbyxwtc (Bld) [#/Vol]N/[facility] CenterMonocytes/100 WBC Auto (Bld)Ordered By: Jose M Landry on 01-15-2023 Monocytes/100 WBC (Bld)N/[facility] CenterMonocytes/100 WBC Manual cnt (Bld)Ordered By: Jose M Landry on 94-71-8058Rsnmfcssx/100 WBC (Bld)7 %2[facility] HospitalNeutrophils Auto (Bld) [#/Vol] Ordered By: Jose M Landry on 75-74-1999Kjhquxgxnqi (Bld) [#/Vol]N/[facility] CenterNeutrophils/100 WBC Auto (Bld)Ordered By: Jose M Landry on 39-40-9094Qaeqoouwect/100 WBC (Bld)N/[facility] CenterNo Panel InformationOrdered By: Jose M Landry on 72-87-1103Xczlrmhiy GFR (CKD-EPI)15.335 mL/MinMercer County Community HospitalPharmacy Creatinine Clearance (ChemN/[facility]15.335 mL/[facility] CampusN/[facility] CenterNucleated RBC/100 WBC Manual cnt (Bld) [Ratio]Ordered By: Jose M Landry on 40-00-6152Pfkyztrtw RBC/100 WBC (Bld) [Ratio]1 /100{WBC}0-0[facility] Nucleated erythrocytes [Presence] in Blood by Automated countOrdered By: Jose M Landry on 15-04-0052Djvtvoelv RBC Auto Ql (Bld)N/[facility] CenterPlatelet adequacy [Presence] in Blood by Light microscopyOrdered By: Jose M Landry on 76-11-0980Ycicrbvoo LM Ql (Bld)NormalNormalMercer County Community HospitalPlatelet mean volume Auto (Bld) [Entitic vol]Ordered By: Jose M Landry on 48-37-9843Cqawpnep mean volume (Bld) [Entitic vol]11.0 fL 6.6-10.1FProMedica Defiance Regional HospitalPlatebenewah community hospital morphology finding [Identifier] in BloodOrdered By: Jose M Landry on 47-00-3924Lqsawxtk morphology finding Nom (Bld)N/[facility] CenterPlatelets Auto (Bld) [#/Vol]Ordered By: Jose M Landry on 74-55-3864Kzbyndsaw (Bld) [#/Vol] 193 10*3/gN017-366LysdfcvtpMercer County Community HospitalPlatelawrence memorial hospital Large [Presence] in Blood by Light microscopyOrdered By: Jose M Landry on 03-27-5275Sobhpdwuv Large LM Ql (Bld)[facility] HealthPoikilocytosis [Presence] in Blood by Light microscopyOrdered By: Jose M Landry on 13-84-6135Fbaynoypizokhg LM Ql (Bld)[facility] Polychromasia [Presence] in Blood by Light microscopyOrdered By: Jose M Landry on 31-14-2944Sqvyayivtyjhj LM Ql (Bld)[facility] HealthPotassium [Moles/volume] in Serum or PlasmaOrdered By: Jose M Landry on 46-97-7306Easxflfvb [Moles/Vol]4.9 mmol/L3.5-5.1FProMedica Defiance Regional HospitalProtein [Mass/volume] in Serum or PlasmaOrdered By: Jose M Landry on 26-77-7023Jozfagz [Mass/Vol]7.9 g/dL6.4-8.9[facility] HospitalRBC Auto (Bld) [#/Vol]Ordered By: Jose M Landry on 23-39-9915YRF (Bld) [#/Vol] 3.40 10*6/uL3.90-5.60[facility] HospitalRBC morphologyOrdered By: Jose M Landry on 39-80-3920UYJ morphology finding Nom (Bld)N/AFMercy Health Anderson Hospitalegmented neutrophils/100 WBC Manual cnt (Bld)Ordered By: Jose M Landry on 32-04-2701Tpaxyxjbu neutrophils/100 WBC (Bld)58 %50-70 [facility] Hospitalerum or plasma albumin/globulin mass ratio Ordered By: Jose M Landry on 90-65-7521Npvmtwz/Globulin [Mass ratio]0.8 {ratio}[facility] Hospitalerum or plasma anion gap determination Ordered By: Jose M Landry on 10-28-0862Uhmnb gap [Moles/Vol]15.3 mmol/L 6.0-15.0[facility] Hospitalodium [Moles/volume] in Serum or PlasmaOrdered By: Jose M Landry on 76-63-7984Btbkdg [Moles/Vol]140 mmol/L 136-145[facility] HospitalTarget cellsOrdered By: Jose M Landry on 98-70-5097Xtolcu cells LM Ql (Bld)MarkedMercer County Community HospitalUrea nitrogen [Mass/volume] in Serum or PlasmaOrdered By: Jose M Landry on 21-40-0485Rlkz nitrogen [Mass/Vol]37 mg/dL7-25[facility] HospitalVariant lymphocytes/100 WBC Manual cnt (Bld)Ordered By: Jose M Landry on 02-51-5969Thfzuul lymphocytes/100 WBC (Bld)2 %0-12[facility] HospitalWBC Auto (Bld) [#/Vol]Ordered By: Jose M Landry on 01-09-2729HFU (Bld) [#/Vol]12.5 10*3/uL4.1-10.5FProMedica Defiance Regional Hospital Alanine aminotransferase [Enzymatic activity/volume] in Serum or PlasmaOrdered By: Mervat Santiago on 86-77-6367QYK [Catalytic activity/Vol]19 U/L7-52[facility] HospitalAlbumin [Mass/volume] in Serum or Plasma by Bromocresol green (BCG) dye binding methoOrdered By: Mervat Santiago on 78-36-4961Lybhnro BCG dye [Mass/Vol]3.6 g/dL3.5-5.7FProMedica Defiance Regional HospitalAlkaline phosphatase [Enzymatic activity/volume] in Serum or PlasmaOrdered By: Mervat Santiago on 91-35-2540HLD [Catalytic activity/Vol]174 U/H69-667IiuvanuuqMercer County Community HospitalAspartate aminotransferase [Enzymatic activity/volume] in Serum or PlasmaOrdered By: Mervat Santiago on 77-96-1717TLA [Catalytic activity/Vol]22 U/L 13-39[facility] HospitalBasophils Auto (Bld) [#/Vol]Ordered By: Mervat Santiago on 97-31-9494Xkhphnlht (Bld) [#/Vol]0.1 10*3/uL0.0-0.2FProMedica Defiance Regional HospitalBasophils/100 WBC Auto (Bld)Ordered By: Mervat Santiago on 28-44-5780Uhqkhzgfz/100 WBC (Bld)1.1 %.[facility] Bilirubin.total [Mass/volume] in Serum or PlasmaOrdered By: Mervat Santiago on 59-22-0770Fnfywcpuz [Mass/Vol]0.3 mg/dL0.3-1.0[facility] Calcium [Mass/volume] in Serum or PlasmaOrdered By: Mervat Santiago on 12-24-2022 Calcium [Mass/Vol]8.6 mg/dL8.6-10.3FProMedica Defiance Regional HospitalCarbon dioxide, total [Moles/volume] in Serum or PlasmaOrdered By: Mervat Santiago on 94-62-6893KQ0 [Moles/Vol]26.7 mmol/L21.0-31.0[facility] Chloride [Moles/volume] in Serum or PlasmaOrdered By: Mervat Santiago on 12-24-2022 Chloride [Moles/Vol]101 mmol/E87-760YkpbqmltkMercer County Community HospitalCholesterol [Mass/volume] in Serum or PlasmaOrdered By: Mervat Santiago on 12-24-2022 Cholesterol [Mass/Vol]128 mg/cV754-538VifegelynMercer County Community HospitalComment on above:Chol less than 200 mg/dl low riskChol 201-239 mg/dl borderline riskChol 240 mg/dl and greater high riskCholesterol in LDL Calc [Mass/Vol]Ordered By: Mervat Santiago on 99-00-3982Vofkorxgdph in LDL [Mass/Vol]42 mg/dL0-100[facility] HospitalComment on above:LDL ATP III CLASSIFICATIONLDL less than 100 mg/dL OptimalLDL 100-129 mg/dL Near or above piwfbkdTYS866-970 mg/dL Borderline highLDL 160-189 mg/dL HighLDL greater than 189 mg/dL Very high Cholesterol in VLDL Calc [Mass/Vol]Ordered By: Mervat Santiago on 12-24-2022 Cholesterol in VLDL [Mass/Vol]23 mg/dLMercer County Community Hospital Creatinine [Mass/volume] in Serum or PlasmaOrdered By: Mervat Santiago on 95-95-0888Mvlntxpyjv [Mass/Vol]3.47 mg/dL0.70-1.30[facility] HospitalEosinophils Auto (Bld) [#/Vol]Ordered By: Mervat Santiago on 12-24-2022 Eosinophils (Bld) [#/Vol]0.5 10*3/uL0.0-0.45[facility] Eosinophils/100 WBC Auto (Bld)Ordered By: Mervat Santiago on 12-24-2022 Eosinophils/100 WBC (Bld)4.4 %.[facility] HospitalErythrocyte distribution width Auto (RBC) [Ratio]Ordered By: Mervat Santiago on 12-24-2022 Erythrocyte distribution width (RBC) [Ratio]14.5 %12.0-14.8[facility] HospitalGlobulin Calc (S) [Mass/Vol]Ordered By: Mervat Santiago on 12-24-2022 Globulin (S) [Mass/Vol]4.1 g/dLMercer County Community HospitalGlucose [Mass/volume] in Serum or PlasmaOrdered By: Mervat Santiago on 73-61-9784Dkkqqvn [Mass/Vol]229 mg/jP80-433TfuzqblsqMercer County Community HospitalComment on above:ADA recommended reference rangeRandom Glucose Reference Range is dependent on time and content of last meal. Glucose of more than 200 mg/dL in a nonstressed, ambulatory subject supports the diagnosisof Diabetes Mellitus.Hematocrit Auto (Bld) [Volume fraction]Ordered By: Mervat Santiago on 76-10-0682Aercjsxdum (Bld) [Volume fraction]29.8 %38.8-50.0[facility] HospitalHemoglobin [Mass/volume] in BloodOrdered By: Mervat Santiago on 53-36-4369Eacgwjduvc (Bld) [Mass/Vol]9.7 g/dL13.0-17.0[facility] HospitalLeukocytes [#/volume] corrected for nucleated erythrocytes in Blood by Automated coun Ordered By: Mervat Santiago on 25-69-5656QOM corrected for nucl RBC Auto (Bld) [#/Vol]11.5 10*3/uL4.1-10.5FProMedica Defiance Regional HospitalLymphocytes Auto (Bld) [#/Vol]Ordered By: Mervat Santiago on 56-31-5196Rfihocsymjn (Bld) [#/Vol]4.0 10*3/uL1.00-4.8[facility] HospitalLymphocytes/100 WBC Auto (Bld) Ordered By: Mervat Santiago on 07-54-2020Jtxjuvpnfgj/100 WBC (Bld)34.9 %.[facility] HospitalH Auto (RBC) [Entitic mass]Ordered By: Mervat Santiago on 82-26-0128YQI (RBC) [Entitic mass]30.6 pg27.5-35.2FTwin City HospitalHC Auto (RBC) [Mass/Vol]Ordered By: Mervat Santiago on 87-09-0813UXIT (RBC) [Mass/Vol]32.7 g/dL32.5-35.6FProMedica Defiance Regional HospitalMCV Auto (RBC) [Entitic vol]Ordered By: Mervat Santiago on 27-14-6922UBO (RBC) [Entitic vol]93.6 fL83.5-101[facility] HospitalMonocytes Auto (Bld) [#/Vol]Ordered By: Mervat Santiago on 87-27-0225Seqcxqqwo (Bld) [#/Vol]0.9 10*3/uL0.0-0.8[facility] HospitalMonocytes/100 WBC Auto (Bld)Ordered By: Mervat Santiago on 80-02-7471Qxtedichs/100 WBC (Bld)7.5 %.[facility] Neutrophils Auto (Bld) [#/Vol]Ordered By: Mervat Santiago on 57-73-4270Chhfbbwbzom (Bld) [#/Vol]6.0 10*3/uL1.8-7.7FProMedica Defiance Regional HospitalNeutrophils/100 WBC Auto (Bld)Ordered By: Mervat Santiago on 56-45-6227Izwqoqdmduf/100 WBC (Bld) 52.1 %.[facility] HospitalNo Panel InformationOrdered By: Mervat Santiago on 59-11-9065Nmknntahj GFR (CKD-EPI)17.968 mL/[facility] CampusPharmacy Creatinine Clearance (ChemN/[facility]17.968 mL/[facility] CampusN/[facility] CenterNucleated erythrocytes [Presence] in Blood by Automated count Ordered By: Mervat Santiago on 75-16-8410Bebgkspuo RBC Auto Ql (Bld)0.1 /100{WBC} 0-0.5FProMedica Defiance Regional HospitalPlatelet adequacy [Presence] in Blood by Light microscopyOrdered By: Mervat Santiago on 27-45-9738Dwyvdynwo LM Ql (Bld) DecreasedNormalMercer County Community HospitalPlatelet mean volume Auto (Bld) [Entitic vol]Ordered By: Mervat Santiago on 94-91-3955Yogtoggk mean volume (Bld) [Entitic vol]10.8 fL6.6-10.1[facility] CenterPlatelet morphology finding [Identifier] in BloodOrdered By: Mervat Santiago on 03-95-0407Xsfdqncr morphology finding Nom (Bld)NormalNormalMercer County Community Hospital Platelets Auto (Bld) [#/Vol]Ordered By: Mervat Santiago on 84-77-2719Vrzkjstcl (Bld) [#/Vol]143 10*3/zG472-674IyedtoxgrMercer County Community HospitalPolychromasia [Presence] in Blood by Light microscopyOrdered By: Mervat Santiago on 12-24-2022 Polychromasia LM Ql (Bld)[facility] HealthPotassium [Moles/volume] in Serum or PlasmaOrdered By: Mervat Santiago on 75-86-1461Kzumbmyrp [Moles/Vol]4.5 mmol/L3.5-5.1FProMedica Defiance Regional HospitalProtein [Mass/volume] in Serum or PlasmaOrdered By: Mervat Santiago on 57-88-0013Rtekjev [Mass/Vol]7.7 g/dL6.4-8.9[facility] HospitalRBC Auto (Bld) [#/Vol] Ordered By: Mervat Santiago on 05-08-8972TNL (Bld) [#/Vol]3.18 10*6/uL3.90-5.60 [facility] HospitalRBC morphologyOrdered By: Mervat Santiago on 91-42-6719FWP morphology finding Nom (Bld)N/AFProMedica Defiance Regional Hospital Schistocytes [Presence] in Blood by Light microscopyOrdered By: Mervat Santiago on 35-68-0551Bfwrdagrmkzu LM Ql (Bld)[facility] Centererum or plasma albumin/globulin mass ratioOrdered By: Mervat Santiago on 12-24-2022 Albumin/Globulin [Mass ratio]0.9 {ratio}[facility] Hospitalerum or plasma anion gap determinationOrdered By: Mervat Santiago on 06-67-4770Wfzxk gap [Moles/Vol]13.8 mmol/L6.0-15.0[facility] Hospitalerum or plasma high density lipoprotein (HDL) cholesterol measurementOrdered By: Mervat Santiago on 87-38-0757Kthttlcuakt in HDL [Mass/Vol]62 mg/rW91-87LkuedrpufMercer County Community HospitalComment on above:HDL CHOL ATP-III CLASSIFICATION Cardiovascular RiskHDL > or equal to 60 mg/dL LOWHDL < 40 mg/dL HIGHSerum or plasma total cholesterol/high density lipoprotein (HDL) cholesterol mass ratOrdered By: Mervat Santiago on 45-84-7718Yvpcwtccyfj.total/Cholesterol in HDL [Mass ratio]2.1 {ratio}<5.0Barn[facility]ville Hospitalodium [Moles/volume] in Serum or PlasmaOrdered By: Mervat Santiago on 08-45-6176Ozjzsn [Moles/Vol]137 mmol/W778-499 [facility] HospitalTarget cellsOrdered By: Mervat Santiago on 81-29-9104Besrjv cells LM Ql (Bld)SlightMercer County Community Hospital Thyrotropin [Units/volume] in Serum or PlasmaOrdered By: Mervat Santiago on 15-99-2416FUL Qn2.73 m[IU]/L0.45-5.33[facility] Triglyceride [Mass/volume] in Serum or PlasmaOrdered By: Mervat Santiago on 01-57-8074Mvcclmokahmq [Mass/Vol]119 mg/dL0-149[facility] Comment on above:TRIG ATP III CLASSIFICATIONTRIG less than 150 mg/dL NormalTRIG 150-199 mg/dL Borderline highTRIG 200-500 mg/dL High TRIG greater than 500 mg/dL Very highStandard traceable to the Center for Disease Conrtrol and Prevention (CDC) test method.Urea nitrogen [Mass/volume] in Serum or PlasmaOrdered By: Mervat Santiago on 39-02-4058Kvrw nitrogen [Mass/Vol]49 mg/dL7-25[facility] Community HospitalVitamin D+Metabolites [Mass/volume] in Serum or PlasmaOrdered By: Mervat Santiago on 78-45-3286Wuboaug D+Metabolites [Mass/Vol]11.8 ng/fV56-963 [facility] HospitalComment on above:VITAMIN D STATUS 25(OH)VITAMIN D RANGE (ng/mL) Deficient <20 Insufficient 20 to <53Ftlfkppdhp35 to 100Reference: Xavier Hunt [place], [place] RIOS, et al. Evaluation,treatment, and prevention of vitamin D deficiency; an Endocrine Society clinical practice guideline. JCEM. 2010; 96(7):1911-30.WBC Auto (Bld) [#/Vol]Ordered By: Mervat Santiago on 01-25-7505JOJ (Bld) [#/Vol]11.5 10*3/uL 4.1-10.5FProMedica Defiance Regional HospitalAlanine aminotransferase [Enzymatic activity/volume] in Serum or PlasmaOrdered By: Jose M Landry on 12-13-2022 ALT [Catalytic activity/Vol]18 U/L7-52[facility] HospitalAlbumin [Mass/volume] in Serum or Plasma by Bromocresol green (BCG) dye binding metho Ordered By: Jose M Landry on 54-43-3732Jcmmxtw BCG dye [Mass/Vol]3.7 g/dL 3.5-5.7FProMedica Defiance Regional HospitalAlkaline phosphatase [Enzymatic activity/volume] in Serum or PlasmaOrdered By: Jose M Landry on 12-13-2022 ALP [Catalytic activity/Vol]157 U/X85-383XenvjsujdMercer County Community Hospital Aspartate aminotransferase [Enzymatic activity/volume] in Serum or PlasmaOrdered By: Jose M Landry on 19-24-8610ZXA [Catalytic activity/Vol]28 U/L13-39 [facility] HospitalBasophils Auto (Bld) [#/Vol]Ordered By: Jose M Landry on 35-26-1808Xszrmpeoj (Bld) [#/Vol]0.1 10*3/uL0.0-0.2FProMedica Defiance Regional HospitalBasophils/100 WBC Auto (Bld)Ordered By: Jose M Landry on 53-93-2178Zxvenvmxp/100 WBC (Bld)0.5 %.[facility] Bilirubin.total [Mass/volume] in Serum or PlasmaOrdered By: Jose M Landry on 04-20-9131Fgfuzyquo [Mass/Vol]0.3 mg/dL0.3-1.0[facility] Calcium [Mass/volume] in Serum or PlasmaOrdered By: Jose M Landry on [id number] [Mass/Vol]9.0 mg/dL8.6-10.3FProMedica Defiance Regional Hospital Carbon dioxide, total [Moles/volume] in Serum or PlasmaOrdered By: Jose M Landry on [id number] [Moles/Vol]28.4 mmol/L21.0-31.0[facility] HospitalChloride [Moles/volume] in Serum or PlasmaOrdered By: Jose M Landry on 24-73-3480Gvtgpqnz [Moles/Vol]103 mmol/C43-211MtplcctaaMercer County Community HospitalCreatinine [Mass/volume] in Serum or PlasmaOrdered By: Jose M Landry on 88-10-2944Bqufbuvuqy [Mass/Vol]3.21 mg/dL0.70-1.30[facility] HospitalEosinophils Auto (Bld) [#/Vol]Ordered By: Jose M Landry on 70-35-8896Ujrzliikqbw (Bld) [#/Vol]0.4 10*3/uL0.0-0.45[facility] HospitalEosinophils/100 WBC Auto (Bld)Ordered By: Jose M Landry on 05-37-6923Vduascivjic/100 WBC (Bld)3.5 %.[facility] HospitalErythrocyte distribution width Auto (RBC) [Ratio]Ordered By: Jose M Landry on 97-26-7998Mtaohqixnhw distribution width (RBC) [Ratio]14.9 % 12.0-14.8[facility] HospitalGlobulin Calc (S) [Mass/Vol]Ordered By: Jose M Landry on 93-07-8642Fxafxhyq (S) [Mass/Vol]4.3 g/dLMercer County Community HospitalGlucose [Mass/volume] in Serum or PlasmaOrdered By: Jose M Landry on 11-90-1507Ktkbnfi [Mass/Vol]110 mg/nO12-071BriegutfzMercer County Community HospitalComment on above:ADA recommended reference rangeRandom Glucose Reference Range is dependent on time and content of last meal. Glucose of more than 200 mg/dL in a nonstressed, ambulatory subject supports the diagnosisof Diabetes Mellitus.Hematocrit Auto (Bld) [Volume fraction]Ordered By: Jose M Landry on 68-76-3560Fmxfzoscsx (Bld) [Volume fraction]36.8 %38.8-50.0 [facility] HospitalHemoglobin [Mass/volume] in BloodOrdered By: Jose M Landry on 44-20-8268Jkdoeydira (Bld) [Mass/Vol]11.8 g/dL13.0-17.0 [facility] HospitalLeukocytes [#/volume] corrected for nucleated erythrocytes in Blood by Automated counOrdered By: Jose M Landry on 92-85-1255PUN corrected for nucl RBC Auto (Bld) [#/Vol]11.3 10*3/uL4.1-10.5 [facility] HospitalLymphocytes Auto (Bld) [#/Vol]Ordered By: Jose M Landry on 33-99-5435Sogjsrabblf (Bld) [#/Vol]5.3 10*3/uL1.00-4.8 [facility] HospitalLymphocytes/100 WBC Auto (Bld)Ordered By: Jose M Landry on 06-16-9367Uwgodacuvdy/100 WBC (Bld)47.0 %.[facility]H Auto (RBC) [Entitic mass]Ordered By: Jose M Landry on 81-88-5078QST (RBC) [Entitic mass]30.3 pg27.5-35.2FProMedica Defiance Regional HospitalMCHC Auto (RBC) [Mass/Vol]Ordered By: Jose M Landry on 62-72-7739EVZC (RBC) [Mass/Vol]32.1 g/dL32.5-35.6FProMedica Defiance Regional HospitalMCV Auto (RBC) [Entitic vol]Ordered By: Jose M Landry on 84-38-6682NGY (RBC) [Entitic vol]94.6 fL83.5-101[facility] HospitalMonocytes Auto (Bld) [#/Vol]Ordered By: Jose M Landry on 54-58-5608Uzxgkcjsr (Bld) [#/Vol]0.7 10*3/uL0.0-0.8[facility] HospitalMonocytes/100 WBC Auto (Bld)Ordered By: Jose M Landry on 77-05-1217Npznfenfd/100 WBC (Bld)6.0 %. [facility] HospitalNeutrophils Auto (Bld) [#/Vol]Ordered By: Jose M Landry on 53-16-6884Oioctwtzbeg (Bld) [#/Vol]4.9 10*3/uL1.8-7.7 [facility] HospitalNeutrophils/100 WBC Auto (Bld)Ordered By: Jose M Landry on 52-15-6008Omlfedskumm/100 WBC (Bld)43.0 %.[facility] HospitalNo Panel InformationOrdered By: Jose M Landry on 75-85-3285Nbbbahekk GFR (CKD-EPI)19.729 mL/[facility] Creatinine Clearance (ChemN/[facility]19.729 mL/[facility] CampusN/[facility] Nucleated erythrocytes [Presence] in Blood by Automated countOrdered By: Jose M Landry on 20-96-4601Coodvjeja RBC Auto Ql (Bld)0.2 /100{WBC}0-0.5FProMedica Defiance Regional HospitalPlatelet mean volume Auto (Bld) [Entitic vol]Ordered By: Jose M Landry on 30-31-7572Pcbmfbpi mean volume (Bld) [Entitic vol]11.1 fL 6.6-10.1FProMedica Defiance Regional HospitalPlatelets Auto (Bld) [#/Vol]Ordered By: Jose M Landry on 44-27-9534Zbrhunxob (Bld) [#/Vol]200 10*3/nK828-464 [facility] HospitalPotassium [Moles/volume] in Serum or Plasma Ordered By: Jose M Landry on 25-50-9000Cbrcxcrbk [Moles/Vol]4.7 mmol/L 3.5-5.1FProMedica Defiance Regional HospitalProtein [Mass/volume] in Serum or Plasma Ordered By: Jose M Landry on 62-07-1882Gsvvrhw [Mass/Vol]8.0 g/dL6.4-8.9 [facility] HospitalRBC Auto (Bld) [#/Vol]Ordered By: Jose M Landry on 59-43-1766GLR (Bld) [#/Vol]3.90 10*6/uL3.90-5.60[facility] Hospitalerum or plasma albumin/globulin mass ratioOrdered By: Jose M Landry on 02-62-2186Oimpudb/Globulin [Mass ratio]0.9 {ratio}[facility] Hospitalerum or plasma anion gap determinationOrdered By: Jose M Landry on 25-62-7492Ouxpa gap [Moles/Vol]14.3 mmol/L6.0-15.0[facility] Hospitalodium [Moles/volume] in Serum or PlasmaOrdered By: Jose M Landry on 57-64-1711Jflniz [Moles/Vol]141 mmol/C585-250LjcajqkkfMercer County Community HospitalUrea nitrogen [Mass/volume] in Serum or PlasmaOrdered By: Jose M Landry on 19-81-0109Skfp nitrogen [Mass/Vol]41 mg/dL7-25[facility] HospitalWBC Auto (Bld) [#/Vol]Ordered By: Jose M Landry on 14-26-7115JYC (Bld) [#/Vol]11.3 10*3/uL4.1-10.5FProMedica Defiance Regional Hospital Anisocytosis LM Ql (Bld)Ordered By: Jose M Landry on 58-36-5731Wtycqqlwvfmx Ql (Bld)SlightMercer County Community HospitalBasophils Auto (Bld) [#/Vol] Ordered By: Jose M Landry on 33-05-5627Qygayfker (Bld) [#/Vol]0.0 10*3/uL 0.0-0.2FProMedica Defiance Regional HospitalBasophils/100 WBC Auto (Bld)Ordered By: Jose M Landry on 35-99-1893Ngzojbolx/100 WBC (Bld)0.3 %.[facility] HospitalEosinophils Auto (Bld) [#/Vol]Ordered By: Jose M Landry on 84-34-2222Brviuudoguc (Bld) [#/Vol]0.7 10*3/uL0.0-0.45[facility] HospitalEosinophils/100 WBC Auto (Bld)Ordered By: Jose M Landry on 11-29-2022 Eosinophils/100 WBC (Bld)6.1 %.[facility] HospitalErythrocyte distribution width Auto (RBC) [Ratio]Ordered By: Jose M Landry on 11-29-2022 Erythrocyte distribution width (RBC) [Ratio]15.7 %12.0-14.8[facility] HospitalHematocrit Auto (Bld) [Volume fraction]Ordered By: Jose M Landry on 97-92-7774Aczejwsfiu (Bld) [Volume fraction]35.9 %38.8-50.0 [facility] HospitalHemoglobin [Mass/volume] in BloodOrdered By: Jose M Landry on 32-60-7647Fyscsodzgm (Bld) [Mass/Vol]11.7 g/dL13.0-17.0 [facility] HospitalLeukocytes [#/volume] corrected for nucleated erythrocytes in Blood by Automated counOrdered By: Jose M Landry on 48-41-1638TIV corrected for nucl RBC Auto (Bld) [#/Vol]11.1 10*3/uL4.1-10.5 [facility] HospitalLymphocytes Auto (Bld) [#/Vol]Ordered By: Jose M Landry on 28-93-6502Ozulvxlgfmu (Bld) [#/Vol]3.8 10*3/uL1.00-4.8 [facility] HospitalLymphocytes/100 WBC Auto (Bld)Ordered By: Jose M Landry on 27-09-0563Glgijlcyoya/100 WBC (Bld)34.0 %.[facility] HospitalMCH Auto (RBC) [Entitic mass]Ordered By: Jose M Landry on 65-02-9731PKK (RBC) [Entitic mass]30.9 pg27.5-35.2FProMedica Defiance Regional HospitalMCHC Auto (RBC) [Mass/Vol]Ordered By: Jose M Landry on 10-39-8512CXJD (RBC) [Mass/Vol]32.5 g/dL32.5-35.6FProMedica Defiance Regional HospitalMCV Auto (RBC) [Entitic vol]Ordered By: Jose M Landry on 71-51-1998BFS (RBC) [Entitic vol]95.3 fL83.5-101[facility] HospitalMonocytes Auto (Bld) [#/Vol]Ordered By: Jose M Landry on 61-44-1098Txjnqoknu (Bld) [#/Vol]1.2 10*3/uL0.0-0.8[facility] HospitalMonocytes/100 WBC Auto (Bld)Ordered By: Jose M Landry on 46-55-1385Gbnylruzp/100 WBC (Bld)11.1 %. [facility] HospitalNeutrophils Auto (Bld) [#/Vol]Ordered By: Jose M Landry on 56-44-0421Jmdcokdrwss (Bld) [#/Vol]5.4 10*3/uL1.8-7.7 [facility] HospitalNeutrophils/100 WBC Auto (Bld)Ordered By: Jose M Landry on 08-49-5090Espzzloxukn/100 WBC (Bld)48.5 %.[facility] HospitalNucleated erythrocytes [Presence] in Blood by Automated countOrdered By: Jose M Landry on 62-99-3308Oxhcrfhcc RBC Auto Ql (Bld)0.2 /100{WBC}0-0.5FProMedica Defiance Regional HospitalPlatelet adequacy [Presence] in Blood by Light microscopyOrdered By: Jose M Landry on 05-85-3493Lentcxeoh LM Ql (Bld)NormalNormalMercer County Community HospitalPlatelet mean volume Auto (Bld) [Entitic vol]Ordered By: Jose M Landry on 21-25-7610Nqlehspo mean volume (Bld) [Entitic vol]11.0 fL6.6-10.1FProMedica Defiance Regional Hospital Platelet morphology finding [Identifier] in BloodOrdered By: Jose M Landry on 77-51-4201Rihzkhpz morphology finding Nom (Bld)N/AFProMedica Defiance Regional HospitalPlatelets Auto (Bld) [#/Vol]Ordered By: Jose M Landry on 11-29-2022 Platelets (Bld) [#/Vol]152 10*3/qJ021-810OiboufjjzMercer County Community Hospital Platelets Large [Presence] in Blood by Light microscopyOrdered By: Jose M Landry on 09-44-2244Wwmynylgl Large LM Ql (Bld)[facility] CenterRBC Auto (Bld) [#/Vol]Ordered By: Jose M Landry on 11-29-2022 RBC (Bld) [#/Vol]3.77 10*6/uL3.90-5.60[facility] HospitalRB morphologyOrdered By: Jose M Landry on 72-68-6223OOS morphology finding Nom (Bld)N/AFProMedica Defiance Regional HospitalTarget cellsOrdered By: Jose M Landry on 61-46-7400Jxsckt cells LM Ql (Bld)[facility] CenterWBC Auto (Bld) [#/Vol]Ordered By: Jose M Landry on 11-29-2022 WBC (Bld) [#/Vol]11.1 10*3/uL4.1-10.5FProMedica Defiance Regional HospitalAlanine aminotransferase [Enzymatic activity/volume] in Serum or PlasmaOrdered By: Jose M Landry on 30-75-5736BQO [Catalytic activity/Vol]7 U/L7-52[facility] HospitalAlbumin [Mass/volume] in Serum or Plasma by Bromocresol green (BCG) dye binding methoOrdered By: Jose M Landry on 15-43-4092Ojopohv BCG dye [Mass/Vol]3.7 g/dL3.5-5.7FProMedica Defiance Regional HospitalAlkaline phosphatase [Enzymatic activity/volume] in Serum or PlasmaOrdered By: Jose M Landry on 29-18-4893EME [Catalytic activity/Vol]142 U/M38-869UnkwlqudnMercer County Community HospitalAspartate aminotransferase [Enzymatic activity/volume] in Serum or PlasmaOrdered By: Jose M Landry on 96-08-2988DIQ [Catalytic activity/Vol]15 U/B49-15JhrzvqqrpMercer County Community HospitalBilirubin.total [Mass/volume] in Serum or PlasmaOrdered By: Jose M Landry on 11-27-2022 Bilirubin [Mass/Vol]0.4 mg/dL0.3-1.0[facility] HospitalCalcium [Mass/volume] in Serum or PlasmaOrdered By: Jose M Landry on 11-27-2022 Calcium [Mass/Vol]8.3 mg/dL8.6-10.3FProMedica Defiance Regional HospitalCarbon dioxide, total [Moles/volume] in Serum or PlasmaOrdered By: Jose M Landry on 42-74-2472DN2 [Moles/Vol]26.7 mmol/L21.0-31.0[facility] Chloride [Moles/volume] in Serum or PlasmaOrdered By: Jose M Landry on 94-26-9930Mucvschb [Moles/Vol]102 mmol/N23-202BtrspwddhMercer County Community Hospital Creatinine [Mass/volume] in Serum or PlasmaOrdered By: Jose M Landry on 48-13-0666Ogbuvymzed [Mass/Vol]4.12 mg/dL0.70-1.30[facility] HospitalFerritin [Mass/volume] in Serum or PlasmaOrdered By: Jose M Landry on 04-73-3758Gdvcqwuj [Mass/Vol]173.0 ng/mL23.9-336.2FProMedica Defiance Regional HospitalGlobulin Calc (S) [Mass/Vol]Ordered By: Jose M Landry on 11-27-2022 Globulin (S) [Mass/Vol]4.5 g/dLMercer County Community HospitalGlucose [Mass/volume] in Serum or PlasmaOrdered By: Jose M Landry on 11-27-2022 Glucose [Mass/Vol]154 mg/mC62-491TrnvjxtnhMercer County Community HospitalIron [Mass/volume] in Serum or PlasmaOrdered By: Jose M Landry on 61-27-2587Mmji [Mass/Vol]94 ug/gC79-073WiqllpepmMercer County Community HospitalIron binding capacity [Mass/volume] in Serum or PlasmaOrdered By: Jose M Landry on 32-85-3439Zura binding capacity [Mass/Vol]276 ug/zL990-241TuthmmxljMercer County Community HospitalIron saturation [Mass Fraction] in Serum or PlasmaOrdered By: Jose M Landry on 52-25-7165Jwvz saturation [Mass fraction]34.1 %20-50[facility] HospitalNo Panel InformationOrdered By: Jose M Landry on 23-96-568625.622 mL/MinMercer County Community HospitalN/AFProMedica Defiance Regional Hospital Potassium [Moles/volume] in Serum or PlasmaOrdered By: Jose M Landry on 07-00-4155Euqerjdrf [Moles/Vol]4.2 mmol/L3.5-5.1FProMedica Defiance Regional HospitalProtein [Mass/volume] in Serum or PlasmaOrdered By: Jose M Landry on 39-53-8320Lvqfelr [Mass/Vol]8.2 g/dL6.4-8.9[facility] Serum or plasma albumin/globulin mass ratioOrdered By: Jose M Landry on 37-66-0652Wvraugj/Globulin [Mass ratio]0.8 {ratio}[facility] Hospitalerum or plasma anion gap determinationOrdered By: Jose M Landry 09-53-5829Uvltl gap [Moles/Vol]14.5 mmol/L6.0-15.0[facility]ville Hospitalodium [Moles/volume] in Serum or PlasmaOrdered By: Jose M Landry on 27-15-4069[place] [Moles/Vol]139 mmol/N397-935CuvpuisopMercer County Community Hospital Transferrin [Mass/volume] in Serum or PlasmaOrdered By: Jose M Landry on 62-77-3073Ahxlqxzexfb [Mass/Vol]197 mg/sQ679-624MvjtzwnkxMercer County Community HospitalUrea nitrogen [Mass/volume] in Serum or PlasmaOrdered By: Jose M Landry on 46-53-4404Sezd nitrogen [Mass/Vol]43 mg/dL7-25[facility] HospitalAlanine aminotransferase [Enzymatic activity/volume] in Serum or PlasmaOrdered By: Jose M Landry on 04-46-8397LLL [Catalytic activity/Vol]5 U/L7-52[facility] HospitalAlbumin [Mass/volume] in Serum or Plasma by Bromocresol green (BCG) dye binding methoOrdered By: Jose M Landry on 31-36-1840Dokxcwi BCG dye [Mass/Vol]3.4 g/dL3.5-5.7FProMedica Defiance Regional HospitalAlkaline phosphatase [Enzymatic activity/volume] in Serum or PlasmaOrdered By: Jose M Landry on 50-71-6435VGB [Catalytic activity/Vol]127 U/L34-104 [facility] HospitalAnisocytosis LM Ql (Bld)Ordered By: Jose M Lanrdy on 59-75-2569Kwxeiagzlkan Ql (Bld)ModerateMercer County Community HospitalAspartate aminotransferase [Enzymatic activity/volume] in Serum or Plasma Ordered By: Jose M Landry on 37-48-1258TMJ [Catalytic activity/Vol]13 U/L 13-39[facility] HospitalBasophils Auto (Bld) [#/Vol]Ordered By: Jose M Landry on 85-28-1632Iuoqiowht (Bld) [#/Vol]N/[facility] CenterBasophils/100 WBC Auto (Bld)Ordered By: Jose M Landry on 26-42-6286Xporpiwsx/100 WBC (Bld)N/[facility] Bilirubin.total [Mass/volume] in Serum or PlasmaOrdered By: Jose M Landry on 82-95-8360Spqakzcwm [Mass/Vol]0.3 mg/dL0.3-1.0[facility] Calcium [Mass/volume] in Serum or PlasmaOrdered By: Jose M Landry on 39-41-3086Pgeoxve [Mass/Vol]8.3 mg/dL8.6-10.3FProMedica Defiance Regional Hospital Carbon dioxide, total [Moles/volume] in Serum or PlasmaOrdered By: Jose M Landry on 10-18-9833CC5 [Moles/Vol]24.8 mmol/L21.0-31.0[facility] HospitalChloride [Moles/volume] in Serum or PlasmaOrdered By: Jose M Landry on 10-02-3994Qjomdoer [Moles/Vol]105 mmol/V48-079TlupigsuzMercer County Community HospitalCreatinine [Mass/volume] in Serum or PlasmaOrdered By: Jose M Landry on 06-06-8371Tocnnnmrnh [Mass/Vol]5.49 mg/dL0.70-1.30[facility] HospitalEosinophils Auto (Bld) [#/Vol]Ordered By: Jose M Landry on 46-39-3881Wjpavkplvek (Bld) [#/Vol]N/[facility] CenterEosinophils/100 WBC Auto (Bld)Ordered By: Jose M Landry on 11-15-2022 Eosinophils/100 WBC (Bld)N/[facility] CenterEosinophils/100 WBC Manual cnt (Bld)Ordered By: Jose M Landry on 62-92-4440Mgkmuwnkhbp/100 WBC (Bld)8 %1-3FProMedica Defiance Regional HospitalErythrocyte distribution width Auto (RBC) [Ratio]Ordered By: Jose M Landry on 37-65-5453Fhacrmxoykf distribution width (RBC) [Ratio]16.9 %12.0-14.8[facility] HospitalGiant platelets/100 leukocytes [Ratio] in Blood by Manual countOrdered By: Jose M Landry on 39-29-7599Ulmpg platelets/100 WBC Manual cnt (Bld) [Ratio]6 /100{WBC}[facility] HospitalGlobulin Calc (S) [Mass/Vol]Ordered By: Jose M Landry on 73-92-2517Zdctqfbm (S) [Mass/Vol]3.9 g/dLMercer County Community HospitalGlucose [Mass/volume] in Serum or PlasmaOrdered By: Jose M Landry on 78-64-9237Tuacdbi [Mass/Vol]133 mg/aY48-211KbedoezwvMercer County Community HospitalHematocrit Auto (Bld) [Volume fraction]Ordered By: Jose M Landry on 35-00-2500Qamylgwgid (Bld) [Volume fraction]34.2 %38.8-50.0 [facility] HospitalHemoglobin [Mass/volume] in BloodOrdered By: Jose M Landry on 80-53-3608Dmpsszbhca (Bld) [Mass/Vol]10.8 g/dL13.0-17.0 [facility] HospitalHypochromia LM Ql (Bld)Ordered By: Jose M Landry on 98-05-4686Sxknbvnoxat Ql (Bld)SlightMercer County Community HospitalLeukocytes [#/volume] corrected for nucleated erythrocytes in Blood by Automated counOrdered By: Jose M Landry on 02-56-8125WQZ corrected for nucl RBC Auto (Bld) [#/Vol]12.9 10*3/uL4.1-10.5FProMedica Defiance Regional Hospital Lymphocytes Auto (Bld) [#/Vol]Ordered By: Jose M Landry on 11-15-2022 Lymphocytes (Bld) [#/Vol]N/[facility] CenterLymphocytes/100 WBC Auto (Bld)Ordered By: Jose M Landry on 48-09-9061Olltvgeuxup/100 WBC (Bld) N/[facility] CenterLymphocytes/100 WBC Manual cnt (Bld)Ordered By: Jose M Landry on 23-65-2797Prroiwkdygv/100 WBC (Bld)26 %18-42Mer[facility] HospitalMCH Auto (RBC) [Entitic mass]Ordered By: Jose M Landry on 57-41-7665RYW (RBC) [Entitic mass]30.3 pg27.5-35.2FProMedica Defiance Regional HospitalMCHC Auto (RBC) [Mass/Vol]Ordered By: Jose M Landry on 00-31-0690EEOZ (RBC) [Mass/Vol]31.7 g/dL32.5-35.6FProMedica Defiance Regional HospitalMCV Auto (RBC) [Entitic vol]Ordered By: Jose M Landry on 07-78-9009AZZ (RBC) [Entitic vol]95.6 fL83.5-101[facility] HospitalMacrocytes LM Ql (Bld)Ordered By: Jose M Landry on 36-60-3735Rdhcdaxijo Ql (Bld)Moderate [facility] HospitalMonocytes Auto (Bld) [#/Vol]Ordered By: Jose M Landry on 09-89-2214Wkytwkxrv (Bld) [#/Vol]N/[facility] CenterMonocytes/100 WBC Auto (Bld)Ordered By: Jose M Landry on 11-15-2022 Monocytes/100 WBC (Bld)NSelect Medical OhioHealth Rehabilitation HospitalMonocytes/100 WBC Manual cnt (Bld)Ordered By: Jose M Landry on 23-22-7263Fwkmtfzme/100 WBC (Bld)6 %2[facility] HospitalNeutrophils Auto (Bld) [#/Vol] Ordered By: Jose M Landry on 08-23-6779Fnjxgnstgrj (Bld) [#/Vol]NSelect Medical OhioHealth Rehabilitation HospitalNeutrophils/100 WBC Auto (Bld)Ordered By: Jose M Landry on 68-81-9540Feocctmwtsx/100 WBC (Bld)[facility] HospitalNo Panel InformationOrdered By: Jose M Landry on 28-01-728887.361 mL/[facility] CampusN/[facility] Nucleated erythrocytes [Presence] in Blood by Automated countOrdered By: Jose M Landry on 39-73-2069Kixbxbfae RBC Auto Ql (Bld)[facility] HospitalPlatebenewah community hospital adequacy [Presence] in Blood by Light microscopyOrdered By: Jose M Landry on 22-14-5402Rluozhmax LM Ql (Bld)NormalNormParkwood HospitalPlatelet mean volume Auto (Bld) [Entitic vol]Ordered By: Jose M Landry on 36-71-1375Cnhoimxo mean volume (Bld) [Entitic vol]9.9 fL 6.6-10.1FProMedica Defiance Regional HospitalPlatelet morphology finding [Identifier] in BloodOrdered By: Jose M Landry on 60-18-8372Riwbczcd morphology finding Nom (Bld)[facility] HospitalPlatelets Auto (Bld) [#/Vol]Ordered By: Jose M Landry on 97-05-3001Kidwpdaeg (Bld) [#/Vol] 201 10*3/eE211-298XdtlrcrkuMercer County Community HospitalPlatelets Large [Presence] in Blood by Light microscopyOrdered By: Jose M Landry on 93-63-1323Tknlgrzex Large LM Ql (Bld)SlightMercer County Community HospitalPoikilocytosis [Presence] in Blood by Light microscopyOrdered By: Jose M Landry on 77-95-7261Aeixqczehucggy LM Ql (Bld)[facility] Polychromasia [Presence] in Blood by Light microscopyOrdered By: Jose M Landry on 21-69-1241Nynodnjbfibqg LM Ql (Bld)[facility] HealthPotassium [Moles/volume] in Serum or PlasmaOrdered By: Jose M Landry on 23-61-6120Kcyeoejcb [Moles/Vol]4.2 mmol/L3.5-5.1FProMedica Defiance Regional HospitalProtein [Mass/volume] in Serum or PlasmaOrdered By: Jose M Landry on 15-13-6339Ncuvhdn [Mass/Vol]7.3 g/dL6.4-8.9[facility] HospitalRB Auto (Bld) [#/Vol]Ordered By: Jose M Landry on 59-86-4778QNF (Bld) [#/Vol] 3.57 10*6/uL3.90-5.60[facility] morphologyOrdered By: Jose M Landry on 36-29-6354QYR morphology finding Nom (Bld)N/AFMercy Health Anderson Hospitalegmented neutrophils/100 WBC Manual cnt (Bld)Ordered By: Jose M Landyr on 98-25-8522Qnfjmvphp neutrophils/100 WBC (Bld)61 %50-70 [facility] Hospitalerum or plasma albumin/globulin mass ratio Ordered By: Jose M Landry on 27-17-2013Icmnheg/Globulin [Mass ratio]0.9 {ratio}[facility] Hospitalerum or plasma anion gap determination Ordered By: Jose M Landry on 45-77-6482Cqthk gap [Moles/Vol]14.4 mmol/L 6.0-15.0[facility] Hospitalodium [Moles/volume] in Serum or PlasmaOrdered By: Jose M Landry on 25-07-6034Kfewxm [Moles/Vol]140 mmol/L 136-145[facility] HospitalTarget cellsOrdered By: Jose M Landry on 11-41-3368Vdpvtw cells LM Ql (Bld)[facility] Medical CenterUrea nitrogen [Mass/volume] in Serum or PlasmaOrdered By: Jose M Landry on 89-73-1943Izmn nitrogen [Mass/Vol]42 mg/dL7-25[facility] HospitalWBC Auto (Bld) [#/Vol]Ordered By: Jose M Landry on 11-15-2022 WBC (Bld) [#/Vol]12.9 10*3/uL4.1-10.5FProMedica Defiance Regional HospitalAlanine aminotransferase [Enzymatic activity/volume] in Serum or PlasmaOrdered By: Jose M Landry on 55-70-2507MAT [Catalytic activity/Vol]8 U/L7-52[facility] HospitalAlbumin [Mass/volume] in Serum or Plasma by Bromocresol green (BCG) dye binding methoOrdered By: Jose M Landry on 40-87-5456Efsuzcs BCG dye [Mass/Vol]3.3 g/dL3.5-5.7FProMedica Defiance Regional HospitalAlkaline phosphatase [Enzymatic activity/volume] in Serum or PlasmaOrdered By: Jose M Landry on 58-37-1260OKX [Catalytic activity/Vol]169 U/J83-158KqpraewihMercer County Community HospitalAnisocytosis LM Ql (Bld)Ordered By: Jose M Landry on 40-98-3321Deacpkmdvxrc Ql (Bld)ModerateMercer County Community Hospital Aspartate aminotransferase [Enzymatic activity/volume] in Serum or PlasmaOrdered By: Jose M Landry on 27-18-0779UIE [Catalytic activity/Vol]18 U/L13-39 [facility] HospitalBand form neutrophils/100 WBC Manual cnt (Bld) Ordered By: Jose M Landry on 74-61-4150Wkdd form neutrophils/100 WBC (Bld)1 %0-5FProMedica Defiance Regional HospitalBasophils Auto (Bld) [#/Vol]Ordered By: Jose M Landry on 52-80-1515Szgfgvztu (Bld) [#/Vol]N/[facility] CenterBasophils/100 WBC Auto (Bld)Ordered By: Jose M Landry on 11-37-3434Togoixywk/100 WBC (Bld)N/[facility] Bilirubin.total [Mass/volume] in Serum or PlasmaOrdered By: Jose M Landry on 82-60-3140Trgsgcmzv [Mass/Vol]0.3 mg/dL0.3-1.0[facility] Calcium [Mass/volume] in Serum or PlasmaOrdered By: Jose M Landry on 02-69-2031Tdwtvpl [Mass/Vol]8.2 mg/dL8.6-10.3FProMedica Defiance Regional Hospital Carbon dioxide, total [Moles/volume] in Serum or PlasmaOrdered By: Jose M Landry on 59-25-2222IP5 [Moles/Vol]24.6 mmol/L21.0-31.0[facility] HospitalChloride [Moles/volume] in Serum or PlasmaOrdered By: Jose M Landry on 27-14-0795Pmptnuji [Moles/Vol]107 mmol/U60-495FuhcpnzgzMercer County Community HospitalCreatinine [Mass/volume] in Serum or PlasmaOrdered By: Jose M Landry on 14-66-6674Rfuseukizo [Mass/Vol]4.78 mg/dL0.70-1.30[facility] HospitalEosinophils Auto (Bld) [#/Vol]Ordered By: Jose M Landry on 76-37-0209Cindkhteeos (Bld) [#/Vol]N/[facility] CenterEosinophils/100 WBC Auto (Bld)Ordered By: Jose M Landry on 11-04-2022 Eosinophils/100 WBC (Bld)N/[facility] CenterEosinophils/100 WBC Manual cnt (Bld)Ordered By: Jose M Landry on 96-73-4642Auustfmbzrd/100 WBC (Bld)5 %1-3FProMedica Defiance Regional HospitalErythrocyte distribution width Auto (RBC) [Ratio]Ordered By: Jose M Landry on 70-35-2114Qnxwhlsjdec distribution width (RBC) [Ratio]18.4 %12.0-14.8[facility] HospitalGiant platelets/100 leukocytes [Ratio] in Blood by Manual countOrdered By: Jose M Landry on 66-64-2511Teceh platelets/100 WBC Manual cnt (Bld) [Ratio]16 /100{WBC}[facility] HospitalGlobulin Calc (S) [Mass/Vol]Ordered By: Jose M Landry on 04-19-0336Ctyjqyim (S) [Mass/Vol]4.4 g/dLMercer [facility] HospitalGlucose [Mass/volume] in Serum or PlasmaOrdered By: Jose M Landry on 76-30-0374Ghnpwrk [Mass/Vol]113 mg/jB50-467BjwanfvemMercer County Community HospitalHematocrit Auto (Bld) [Volume fraction]Ordered By: Jose M Landry on 04-95-0846Wcidussfod (Bld) [Volume fraction]30.6 %38.8-50.0 [facility] HospitalHemoglobin [Mass/volume] in BloodOrdered By: Jose M Landry on 98-55-8281Yrhmiytduz (Bld) [Mass/Vol]9.9 g/dL13.0-17.0 [facility] HospitalHypochromia LM Ql (Bld)Ordered By: Jose M Landry on 73-10-1164Zprtlmrbrfl Ql (Bld)[facility] CenterLeukocytes [#/volume] corrected for nucleated erythrocytes in Blood by Automated counOrdered By: Jose M Landry on 82-00-7567MRY corrected for nucl RBC Auto (Bld) [#/Vol]10.8 10*3/uL4.1-10.5FProMedica Defiance Regional Hospital Lymphocytes Auto (Bld) [#/Vol]Ordered By: Jose M Landry on 11-04-2022 Lymphocytes (Bld) [#/Vol]N/[facility] CenterLymphocytes/100 WBC Auto (Bld)Ordered By: Jose M Landry on 82-37-5136Weavdmvnpsw/100 WBC (Bld) N/[facility] CenterLymphocytes/100 WBC Manual cnt (Bld)Ordered By: Jose M Landry on 80-00-9561Krdfnljxpjj/100 WBC (Bld)31 %18-42[facility] HospitalMCH Auto (RBC) [Entitic mass]Ordered By: Jose M Landry on 68-15-0229JOP (RBC) [Entitic mass]31.1 pg27.5-35.2FProMedica Defiance Regional HospitalMCHC Auto (RBC) [Mass/Vol]Ordered By: Jose M Landry on 55-21-3530AFDX (RBC) [Mass/Vol]32.4 g/dL32.5-35.6FProMedica Defiance Regional HospitalMCV Auto (RBC) [Entitic vol]Ordered By: Jose M Landry on 95-37-5273USA (RBC) [Entitic vol]96.1 fL83.5-101[facility] HospitalMacrocytes LM Ql (Bld)Ordered By: Jose M Landry on 98-39-3700Yogqpzagbv Ql (Bld)Slight [facility] HospitalMonocytes Auto (Bld) [#/Vol]Ordered By: Jose M Landry on 00-39-2083Knrmqbrbu (Bld) [#/Vol]N/[facility] CenterMonocytes/100 WBC Auto (Bld)Ordered By: Jose M Landry on 11-04-2022 Monocytes/100 WBC (Bld)N/[facility] CenterMonocytes/100 WBC Manual cnt (Bld)Ordered By: Jose M Landry on 72-60-3243Tvpwbfwbl/100 WBC (Bld)7 %2-11[facility] HospitalNeutrophils Auto (Bld) [#/Vol] Ordered By: Jose M Landry on 56-04-5494Ngnzvnytuza (Bld) [#/Vol]N/[facility] CenterNeutrophils/100 WBC Auto (Bld)Ordered By: Jose M Landry on 56-36-7500Uliftwxrrid/100 WBC (Bld)N/[facility] CenterNo Panel InformationOrdered By: Jose M Landry on 80-02-979863.235 mL/MinMercer County Community HospitalN/[facility] Nucleated erythrocytes [Presence] in Blood by Automated countOrdered By: Jose M Landry on 18-06-2087Qgsyxjger RBC Auto Ql (Bld)N/[facility] CenterOvalocyte detectionOrdered By: Jose M Landry on 96-00-7954Ctrlzevlpx LM Ql (Bld)[facility] HealthPlatelet adequacy [Presence] in Blood by Light microscopyOrdered By: Jose M Landry on 91-60-8246Oaizguycu LM Ql (Bld)NormalNormalMercer County Community HospitalPlatelet mean volume Auto (Bld) [Entitic vol]Ordered By: Jose M Landry on 75-64-5755Vrihdnji mean volume (Bld) [Entitic vol]9.7 fL6.6-10.1FProMedica Defiance Regional Hospital Platelet morphology finding [Identifier] in BloodOrdered By: Jose M Landry on 54-30-3694Hxfgahvp morphology finding Nom (Bld)N/[facility] CenterPlatelets Auto (Bld) [#/Vol]Ordered By: Jose M Landry on 11-04-2022 Platelets (Bld) [#/Vol]272 10*3/gS413-221TtpekttglMercer County Community Hospital Poikilocytosis [Presence] in Blood by Light microscopyOrdered By: Jose M Landry on 17-11-1335Xmichianzwivdu LM Ql (Bld)ModerateMercer County Community HospitalPolychromasia [Presence] in Blood by Light microscopyOrdered By: Jose M Landry on 75-64-1324Yqhbsojlrwmcn LM Ql (Bld)SlightMercer County Community HospitalPotassium [Moles/volume] in Serum or PlasmaOrdered By: Jose M Landry on 64-15-5141Ddqwdlwln [Moles/Vol]5.0 mmol/L3.5-5.1FProMedica Defiance Regional HospitalProtein [Mass/volume] in Serum or PlasmaOrdered By: Jose M Landry on 52-05-9538Tgkifhh [Mass/Vol]7.7 g/dL6.4-8.9[facility] HospitalRBC Auto (Bld) [#/Vol]Ordered By: Jose M Landry on 11-04-2022 RBC (Bld) [#/Vol]3.19 10*6/uL3.90-5.60[facility] HospitalRB morphologyOrdered By: Jose M Landry on 17-54-5474WQG morphology finding Nom (Bld)N/[facility] Hospitalchistocytes [Presence] in Blood by Light microscopyOrdered By: Jose M Landry on 35-23-8334Otdtdpnyvjlb LM Ql (Bld)[facility] Centeregmented neutrophils/100 WBC Manual cnt (Bld)Ordered By: Jose M Landry on 12-05-6409Shwooahpk neutrophils/100 WBC (Bld)56 %50-70[facility]ville Hospitalerum or plasma albumin/globulin mass ratioOrdered By: Jose M Landry on 11-04-2022 Albumin/Globulin [Mass ratio]0.8 {ratio}[facility]ville Hospitalerum or plasma anion gap determinationOrdered By: Jose M Landry on 11-04-2022 Anion gap [Moles/Vol]14.4 mmol/L6.0-15.0[facility] Hospitalodium [Moles/volume] in Serum or PlasmaOrdered By: Jose M Landry on 11-04-2022 Sodium [Moles/Vol]141 mmol/I111-301MgkivhmpxMercer County Community HospitalTarget cells Ordered By: Jose M Landry on 69-36-8773Youyhy cells LM Ql (Bld)[facility] Cancer CenterTeardrop cell detectionOrdered By: Jose M Landry on 40-97-6341Wtnfdohzes LM Ql (Bld)[facility] HealthUrea nitrogen [Mass/volume] in Serum or PlasmaOrdered By: Jose M Landry on 76-29-3884Qhay nitrogen [Mass/Vol]32 mg/dL7-25Mer[facility] HospitalWBC Auto (Bld) [#/Vol]Ordered By: Jose M Landry on 11-04-2022 WBC (Bld) [#/Vol]10.8 10*3/uL4.1-10.5FProMedica Defiance Regional Hospital Acanthocytes [Presence] in Blood by Light microscopyOrdered By: Riya Sampson on 47-77-1348Rflvkttkyiqc LM Ql (Bld)[facility] Anisocytosis LM Ql (Bld)Ordered By: Riya Sampson on 62-46-9146Clwhpeyhhdyx Ql (Bld)[facility] CenterBasophils Auto (Bld) [#/Vol] Ordered By: Riya Sampson on 14-21-0507Oulmdwsrt (Bld) [#/Vol]N/[facility] CenterBasophils/100 WBC Auto (Bld)Ordered By: Riya Sampson on 51-78-7334Nojoglwon/100 WBC (Bld)N/[facility] Basophils/100 WBC Manual cnt (Bld)Ordered By: Riya Sampson on 10-24-2022 Basophils/100 WBC (Bld)1 %0-2FProMedica Defiance Regional HospitalCalcium [Mass/volume] in Serum or PlasmaOrdered By: Riya Sampson on 49-99-3217Aybivpu [Mass/Vol]7.4 mg/dL8.6-10.3FProMedica Defiance Regional HospitalCarbon dioxide, total [Moles/volume] in Serum or PlasmaOrdered By: Riya Sampson on 10-24-2022 CO2 [Moles/Vol]23.6 mmol/L21.0-31.0[facility] HospitalChloride [Moles/volume] in Serum or PlasmaOrdered By: Riya Sampson on 10-24-2022 Chloride [Moles/Vol]111 mmol/W55-124OdmbfoyxlMercer County Community HospitalCreatinine [Mass/volume] in Serum or PlasmaOrdered By: Riya Sampson on 10-24-2022 Creatinine [Mass/Vol]2.78 mg/dL0.70-1.30[facility] Eosinophils Auto (Bld) [#/Vol]Ordered By: Riya Sampson on 10-24-2022 Eosinophils (Bld) [#/Vol]N/[facility] CenterEosinophils/100 WBC Auto (Bld)Ordered By: Riya Sampson on 81-72-3611Rbteiwpnres/100 WBC (Bld)N/A [facility] HospitalEosinophils/100 WBC Manual cnt (Bld)Ordered By: Riya Sampson on 07-92-9273Xjcrrjoooey/100 WBC (Bld)4 %1-3FProMedica Defiance Regional HospitalErythrocyte distribution width Auto (RBC) [Ratio]Ordered By: Riya Sampson on 99-26-1409Ftgpasugqbz distribution width (RBC) [Ratio]18.1 % 12.0-14.8[facility] HospitalGiant platelets/100 leukocytes [Ratio] in Blood by Manual countOrdered By: Riya Sampson on 42-71-9071Gtpeu platelets/100 WBC Manual cnt (Bld) [Ratio]7 /100{WBC}[facility] HospitalGlucose Glucometer (BldC) [Mass/Vol]Ordered By: Riya Sampson on 76-86-7810Lywuohz [Mass/Vol]99 mg/dLMercer County Community HospitalGlucose [Mass/volume] in Serum or PlasmaOrdered By: Riya Sampson on 81-13-7008Jcxojib [Mass/Vol]76 mg/xN35-455HsgfyxkqtMercer County Community HospitalHematocrit Auto (Bld) [Volume fraction]Ordered By: Riya Sampson on 37-10-1259Tsprcyqazi (Bld) [Volume fraction]24.4 %38.8-50.0[facility] HospitalHemoglobin [Mass/volume] in BloodOrdered By: Riya Sampson on 02-46-5074Bunakxfjgx (Bld) [Mass/Vol]7.9 g/dL13.0-17.0[facility] HospitalHypochromia LM Ql (Bld)Ordered By: Riya Sampson on 81-23-8732Deygeiqlqqm Ql (Bld)Moderate [facility] HospitalLeukocytes [#/volume] corrected for nucleated erythrocytes in Blood by Automated counOrdered By: Riya Sampson on 10-24-2022 WBC corrected for nucl RBC Auto (Bld) [#/Vol]10.3 10*3/uL4.1-10.5FProMedica Defiance Regional HospitalLymphocytes Auto (Bld) [#/Vol]Ordered By: Riya Sampson on 66-29-0972Seyvmpzzbgt (Bld) [#/Vol]N/[facility] Lymphocytes/100 WBC Auto (Bld)Ordered By: Riya Sampson on 10-24-2022 Lymphocytes/100 WBC (Bld)N/[facility] CenterLymphocytes/100 WBC Manual cnt (Bld)Ordered By: Riya Sampson on 44-68-3654Pisvdlucbyy/100 WBC (Bld)28 %18-42[facility] Auto (RBC) [Entitic mass] Ordered By: Riya Sampson on 15-32-4074ZEX (RBC) [Entitic mass]32.4 pg27.5-35.2 [facility] HospitalMCHC Auto (RBC) [Mass/Vol]Ordered By: Riya Sampson on 74-46-3555VGHW (RBC) [Mass/Vol]32.5 g/dL32.5-35.6FProMedica Defiance Regional HospitalMCV Auto (RBC) [Entitic vol]Ordered By: Riya Sampson on 32-82-1660CQY (RBC) [Entitic vol]99.8 fL83.5-101[facility] HospitalMacrocytes LM Ql (Bld)Ordered By: Riya Sampson on 92-14-2764Twehgesnty Ql (Bld)ModerateMercer County Community HospitalMicrocytes LM Ql (Bld)Ordered By: Riya Sampson on 78-41-7633Clmbdtvimd Ql (Bld)SlightMercer County Community HospitalMonocytes Auto (Bld) [#/Vol]Ordered By: Riya Sampson on 46-81-6141Cxcvelscn (Bld) [#/Vol]N/[facility] Monocytes/100 WBC Auto (Bld)Ordered By: Riya Sampson on 10-24-2022 Monocytes/100 WBC (Bld)NSelect Medical [facility]Health Rehabilitation HospitalMonocytes/100 WBC Manual cnt (Bld)Ordered By: Riya Sampson on 41-11-7851Qotplbuua/100 WBC (Bld)7 %2-11[facility] HospitalMyelocytes/100 WBC Manual cnt (Bld) Ordered By: Riya Sampson on 90-20-4937Kkcxgbtmgn/100 WBC (Bld)1 %0-0[facility] HospitalNeutrophils Auto (Bld) [#/Vol]Ordered By: Riya Sampson on 45-19-3576Vetjbmukpxw (Bld) [#/Vol]N/[facility] Neutrophils/100 WBC Auto (Bld)Ordered By: Riya Sampson on 10-24-2022 Neutrophils/100 WBC (Bld)N/[facility] CenterNo Panel InformationOrdered By: Riya Sampson on 40-83-651645.445 mL/MinMercer County Community Hospital32.10[facility] HospitalNucleated erythrocytes [Presence] in Blood by Automated countOrdered By: Riya Sampson on 37-78-9390Dsmsazzrk RBC Auto Ql (Bld)N/AFProMedica Defiance Regional Hospital Platelet adequacy [Presence] in Blood by Light microscopyOrdered By: Riya Sampson on 83-50-4736Xqsvjivzm LM Ql (Bld)NormalNormalMercer County Community HospitalPlatelet mean volume Auto (Bld) [Entitic vol]Ordered By: Riya Sampson on 56-24-2420Jvpkwgan mean volume (Bld) [Entitic vol]10.2 fL6.6-10.1FProMedica Defiance Regional HospitalPlatelet morphology finding [Identifier] in BloodOrdered By: Riya Sampson on 90-28-8409Dicqywke morphology finding Nom (Bld)N/A [facility] HospitalPlatelets Auto (Bld) [#/Vol]Ordered By: Riya Sampson on 91-82-9785Mtymkolxf (Bld) [#/Vol]244 10*3/yN693-458AjbjgbltgMercer County Community HospitalPlatelawrence memorial hospital Large [Presence] in Blood by Light microscopyOrdered By: Riya Sampson on 18-99-4019Fxtejoqwn Large LM Ql (Bld)[facility] HealthPoikilocytosis [Presence] in Blood by Light microscopy Ordered By: Riya Sampson on 92-98-1642Rhndnnqnxhkzxs LM Ql (Bld)[facility] HospitalPolychromasia [Presence] in Blood by Light microscopyOrdered By: Riya Sampson on 30-28-4309Ybmaohjnayvyu LM Ql (Bld) [facility] HealthPotassium [Moles/volume] in Serum or PlasmaOrdered By: Riya Sampson on 75-85-3901Smuobfkwx [Moles/Vol]4.2 mmol/L 3.5-5.1FProMedica Defiance Regional HospitalRBC Auto (Bld) [#/Vol]Ordered By: Riya Sampson on 48-64-8047QHW (Bld) [#/Vol]2.45 10*6/uL3.90-5.60[facility] HospitalRBC morphologyOrdered By: Riya Sampson on 81-10-1836UWI morphology finding Nom (Bld)N/AFMercy Health Anderson Hospitalchistocytes [Presence] in Blood by Light microscopyOrdered By: Riya Sampson on 10-24-2022 Schistocytes LM Ql (Bld)[facility] Centeregmented neutrophils/100 WBC Manual cnt (Bld)Ordered By: Riya Sampson on 10-24-2022 Segmented neutrophils/100 WBC (Bld)59 %50-70[facility] Serum or plasma anion gap determinationOrdered By: Riya Sampson on 10-24-2022 Anion gap [Moles/Vol]11.6 mmol/L6.0-15.0[facility] Hospitalmudge cell detectionOrdered By: Riya Sampson on 44-75-9004Lkhahh cells LM Ql (Bld) [facility] Centerodium [Moles/volume] in Serum or Plasma Ordered By: Riya Sampson on 76-68-2268Yzppau [Moles/Vol]142 mmol/S569-167 [facility] HospitalTarget cellsOrdered By: Riya Sampson on 25-14-0104Bdygcq cells LM Ql (Bld)[facility] CenterUrea nitrogen [Mass/volume] in Serum or PlasmaOrdered By: Riya Sampson on 06-96-8346Jdhi nitrogen [Mass/Vol]30 mg/dL7-25[facility] WBC Auto (Bld) [#/Vol]Ordered By: Riya Sampson on 32-46-2620QSA (Bld) [#/Vol] 10.3 10*3/uL4.1-10.5FProMedica Defiance Regional HospitalC reactive protein [Mass/volume] in Serum or PlasmaOrdered By: Riya Sampson on 03-98-4965BVP [Mass/Vol]2.1 mg/dL0.0-0.5FProMedica Defiance Regional HospitalErythrocyte sedimentation rate by Photometric methodOrdered By: Riya Sampson on 10-23-2022 ESR Photometric method (Bld) [Velocity]98 mm/hr0[facility] HospitalAlanine aminotransferase [Enzymatic activity/volume] in Serum or Plasma Ordered By: Singh Kessler on 86-10-3420LEX [Catalytic activity/Vol]6 U/L7-52 [facility] HospitalAlbumin [Mass/volume] in Serum or Plasma by Bromocresol green (BCG) dye binding methoOrdered By: Singh Kessler on 10-22-2022 Albumin BCG dye [Mass/Vol]2.9 g/dL3.5-5.7FProMedica Defiance Regional Hospital Alkaline phosphatase [Enzymatic activity/volume] in Serum or PlasmaOrdered By: Singh Kessler on 48-97-4708ALI [Catalytic activity/Vol]147 U/A93-201XeynmtjyiMercer County Community HospitalAnisocytosis LM Ql (Bld)Ordered By: Singh Kessler on 07-95-0953Cmecjjfboset Ql (Bld)ModerateMercer County Community Hospital Aspartate aminotransferase [Enzymatic activity/volume] in Serum or PlasmaOrdered By: Singh Kessler on 63-69-9646BKD [Catalytic activity/Vol]18 U/J04-59PligfsrjvMercer County Community HospitalBacterial blood cultureOrdered By: Singh Kessler on 89-51-3626Bwzmhhaw identified Cx Nom (Bld)NO GROWTH 5 DAYSMercer County Community HospitalBasophils Auto (Bld) [#/Vol]Ordered By: Singh Kessler on 10-22-2022 Basophils (Bld) [#/Vol]N/AFProMedica Defiance Regional HospitalBasophils/100 WBC Auto (Bld)Ordered By: Singh Kessler on 85-30-0107Mdnqhhvbw/100 WBC (Bld)N/A [facility] HospitalBasophils/100 WBC Manual cnt (Bld)Ordered By: Singh Kessler on 99-32-0337Dmdohhqfl/100 WBC (Bld)1 %0-2FProMedica Defiance Regional HospitalBilirubin.total [Mass/volume] in Serum or PlasmaOrdered By: Singh Kessler on 83-00-5246Jfyiqfdmh [Mass/Vol]0.2 mg/dL0.3-1.0[facility] HospitalCalcium [Mass/volume] in Serum or PlasmaOrdered By: Singh Kessler on 52-46-3868Fxrowwg [Mass/Vol]7.5 mg/dL8.6-10.3FProMedica Defiance Regional HospitalCarbon dioxide, total [Moles/volume] in Serum or PlasmaOrdered By: Singh Kessler on 63-44-5136FF8 [Moles/Vol]23.2 mmol/L21.0-31.0[facility] HospitalChloride [Moles/volume] in Serum or PlasmaOrdered By: Singh Kessler on 82-30-2283Hqkgqiqr [Moles/Vol]110 mmol/C39-061YpxsaytacMercer County Community Hospital Creatinine [Mass/volume] in Serum or PlasmaOrdered By: Singh Kessler on 14-66-5551Fkuhmjkppj [Mass/Vol]2.92 mg/dL0.70-1.30[facility] HospitalEosinophils Auto (Bld) [#/Vol]Ordered By: Singh Kessler on 10-22-2022 Eosinophils (Bld) [#/Vol]N/AFProMedica Defiance Regional HospitalEosinophils/100 WBC Auto (Bld)Ordered By: Singh Kessler on 48-35-8650Rdlongmtslc/100 WBC (Bld)N/A [facility] HospitalEosinophils/100 WBC Manual cnt (Bld)Ordered By: Singh Kessler on 25-53-0165Aqowpdwsnfe/100 WBC (Bld)8 %1-3FProMedica Defiance Regional HospitalErythrocyte distribution width Auto (RBC) [Ratio]Ordered By: Singh Kessler on 38-39-7135Qrndecrquvp distribution width (RBC) [Ratio]18.7 % 12.0-14.8[facility] HospitalGiant platelets/100 leukocytes [Ratio] in Blood by Manual countOrdered By: Singh Kessler 76-74-2184Pgwnz platelets/100 WBC Manual cnt (Bld) [Ratio]1 /100{WBC}[facility] HospitalGlobulin Calc (S) [Mass/Vol]Ordered By: Singh Kessler on 00-72-1920Camiucsi (S) [Mass/Vol]4.3 g/dLMercer County Community HospitalGlucose Glucometer (BldC) [Mass/Vol]Ordered By: Singh Kessler on 45-55-6715Lkqzrgh [Mass/Vol]72 mg/dLMercer County Community HospitalGlucose [Mass/volume] in Serum or Plasma Ordered By: Singh Kessler on 44-63-9912Vknlbca [Mass/Vol]65 mg/hF33-752DtaoaggbnMercer County Community HospitalHematocrit Auto (Bld) [Volume fraction]Ordered By: Singh Kessler on 20-80-5187Inzxkilxwi (Bld) [Volume fraction]23.9 %38.8-50.0[facility] HospitalHemoglobin [Mass/volume] in BloodOrdered By: Singh Kessler on 97-66-2859Wkicjjwqiz (Bld) [Mass/Vol]7.7 g/dL13.0-17.0[facility] HospitalHypochromia LM Ql (Bld)Ordered By: Singh Kessler on 10-22-2022 Hypochromia Ql (Bld)SlightMercer County Community HospitalLeukocytes [#/volume] corrected for nucleated erythrocytes in Blood by Automated counOrdered By: Singh Kessler on 71-39-6058VVM corrected for nucl RBC Auto (Bld) [#/Vol]11.3 10*3/uL4.1-10.5FProMedica Defiance Regional HospitalLymphocytes Auto (Bld) [#/Vol] Ordered By: Singh Kessler on 10-71-2340Rjdrmvsasjl (Bld) [#/Vol]N/[facility] CenterLymphocytes/100 WBC Auto (Bld)Ordered By: Singh Kessler on 72-36-2397Uyadeddrmkc/100 WBC (Bld)N/[facility] Lymphocytes/100 WBC Manual cnt (Bld)Ordered By: Singh Kessler on 10-22-2022 Lymphocytes/100 WBC (Bld)34 %18-42[facility] HospitalMCH Auto (RBC) [Entitic mass]Ordered By: Singh Kessler on 97-08-0118HBJ (RBC) [Entitic mass]30.8 pg27.5-35.2FProMedica Defiance Regional HospitalMCHC Auto (RBC) [Mass/Vol] Ordered By: Singh Kessler on 31-65-2453WHDY (RBC) [Mass/Vol]32.3 g/dL32.5-35.6 [facility] HospitalMCV Auto (RBC) [Entitic vol]Ordered By: Singh Kessler on 68-15-3745LHR (RBC) [Entitic vol]95.5 fL83.5-101[facility] HospitalMonocytes Auto (Bld) [#/Vol]Ordered By: Singh Kessler on 10-22-2022 Monocytes (Bld) [#/Vol]N/[facility] CenterMonocytes/100 WBC Auto (Bld)Ordered By: Singh Kessler on 30-96-1271Ngvvigavn/100 WBC (Bld)N/A [facility] HospitalMonocytes/100 WBC Manual cnt (Bld)Ordered By: Singh Kessler on 56-26-1247Epvkoqtac/100 WBC (Bld)4 %2-11[facility] HospitalNeutrophils Auto (Bld) [#/Vol]Ordered By: Singh Kessler on 21-11-5406Kozbgptictn (Bld) [#/Vol]N/[facility] Neutrophils/100 WBC Auto (Bld)Ordered By: Singh Kessler on 10-22-2022 Neutrophils/100 WBC (Bld)NSelect Medical [facility]Health Rehabilitation HospitalNo Panel InformationOrdered By: Singh Kessler on 87-10-240217.102 mL/[facility]30.04[facility] HospitalNucleated erythrocytes [Presence] in Blood by Automated countOrdered By: Singh Kessler on 10-22-2022 Nucleated RBC Auto Ql (Bld)NSelect Medical OhioHealth Rehabilitation HospitalPlatelet adequacy [Presence] in Blood by Light microscopyOrdered By: Singh Kessler on 10-22-2022 Platelets LM Ql (Bld)NormalNormalMercer County Community HospitalPlatelet mean volume Auto (Bld) [Entitic vol]Ordered By: Singh Kessler on 58-11-9011Fkfyqmlr mean volume (Bld) [Entitic vol]10.0 fL6.6-10.1FProMedica Defiance Regional Hospital Platelet morphology finding [Identifier] in BloodOrdered By: Singh Kessler on 95-93-1734Uibdmxfh morphology finding Nom (Bld)N/[facility] CenterPlatelets Auto (Bld) [#/Vol]Ordered By: Singh Kessler on 10-22-2022 Platelets (Bld) [#/Vol]246 10*3/iF823-116DxmthzmlmMercer County Community Hospital Poikilocytosis [Presence] in Blood by Light microscopyOrdered By: Singh Kessler on 99-63-3254Angyxggobaoqdh LM Ql (Bld)[facility] Polychromasia [Presence] in Blood by Light microscopyOrdered By: Singh Kessler on 31-90-6450Qbsxyxkeidsng LM Ql (Bld)[facility] Potassium [Moles/volume] in Serum or PlasmaOrdered By: Singh Kessler on 25-95-5688Ipqzopsur [Moles/Vol]3.9 mmol/L3.5-5.1FProMedica Defiance Regional HospitalProtein [Mass/volume] in Serum or PlasmaOrdered By: Singh Kessler on 00-21-3979Mfkwubr [Mass/Vol]7.2 g/dL6.4-8.9[facility] HospitalRB Auto (Bld) [#/Vol]Ordered By: Singh Kessler on 41-79-8339DNE (Bld) [#/Vol]2.50 10*6/uL3.90-5.60[facility] HospitalRBC morphologyOrdered By: Singh Kessler on 47-72-6747QTP morphology finding Nom (Bld)N/AFMercy Health Anderson Hospitalegmented neutrophils/100 WBC Manual cnt (Bld)Ordered By: Singh Kessler on 73-97-0573Wnyurvdbj neutrophils/100 WBC (Bld)53 %50-70[facility] Hospitalerum or plasma albumin/globulin mass ratioOrdered By: Singh Kessler on 95-72-2935Crfzowt/Globulin [Mass ratio]0.7 {ratio}[facility] Hospitalerum or plasma anion gap determinationOrdered By: Singh Kessler on 85-85-4815Jjhfd gap [Moles/Vol]12.7 mmol/L6.0-15.0[facility] Hospitalodium [Moles/volume] in Serum or PlasmaOrdered By: Singh Kessler on 71-90-7477Vrvzpq [Moles/Vol]142 mmol/Y108-342XfuhmnkmeMercer County Community HospitalTarget cellsOrdered By: Singh Kessler on 71-60-5008Iedidi cells LM Ql (Bld) SlightMercer County Community HospitalUrea nitrogen [Mass/volume] in Serum or PlasmaOrdered By: Singh Kessler on 07-20-6135Ihqt nitrogen [Mass/Vol]26 mg/dL7-25 [facility] HospitalWBC Auto (Bld) [#/Vol]Ordered By: Singh Kessler on 54-82-8825YWP (Bld) [#/Vol]11.3 10*3/uL4.1-10.5FProMedica Defiance Regional HospitalAlanine aminotransferase [Enzymatic activity/volume] in Serum or Plasma Ordered By: Singh Kessler on 91-46-0503GCC [Catalytic activity/Vol]7 U/L7-52 [facility] HospitalAlbumin [Mass/volume] in Serum or Plasma by Bromocresol green (BCG) dye binding methoOrdered By: Singh Kessler on 10-21-2022 Albumin BCG dye [Mass/Vol]2.9 g/dL3.5-5.7FProMedica Defiance Regional Hospital Alkaline phosphatase [Enzymatic activity/volume] in Serum or PlasmaOrdered By: Singh Kessler on 55-71-8131PUS [Catalytic activity/Vol]152 U/R69-227GrilihvhyMercer County Community HospitalAspartate aminotransferase [Enzymatic activity/volume] in Serum or PlasmaOrdered By: Singh Kessler on 39-37-1985IHL [Catalytic activity/Vol]18 U/Q16-68TxiiceekoMercer County Community HospitalBacterial blood culture Ordered By: Singh Kessler on 62-49-2444Baybsayy identified Cx Nom (Bld)NO GROWTH 5 DAYSMercer County Community HospitalBasophils Auto (Bld) [#/Vol]Ordered By: Singh Kessler on 54-83-6795Tioyntzdh (Bld) [#/Vol]0.1 10*3/uL0.0-0.2FProMedica Defiance Regional HospitalBasophils/100 WBC Auto (Bld)Ordered By: Singh Kessler on [id number]/100 WBC (Bld)1.0 %.[facility] Bilirubin.total [Mass/volume] in Serum or PlasmaOrdered By: Singh Kessler on [id number] [Mass/Vol]0.3 mg/dL0.3-1.0[facility] Calcium [Mass/volume] in Serum or PlasmaOrdered By: Singh Kessler on 10-21-2022 Calcium [Mass/Vol]7.6 mg/dL8.6-10.3FProMedica Defiance Regional HospitalCarbon dioxide, total [Moles/volume] in Serum or PlasmaOrdered By: Singh Kessler on 65-41-2877BU0 [Moles/Vol]25.1 mmol/L21.0-31.0[facility] Chloride [Moles/volume] in Serum or PlasmaOrdered By: Singh Kessler on 10-21-2022 Chloride [Moles/Vol]109 mmol/L45-888PakmzrpvaMercer County Community HospitalCreatinine [Mass/volume] in Serum or PlasmaOrdered By: Singh Kessler [id number] [Mass/Vol]2.84 mg/dL0.70-1.30[facility] HospitalEosinophils Auto (Bld) [#/Vol]Ordered By: Singh Kessler 82-20-1592Cdxwlchivry (Bld) [#/Vol]0.5 10*3/uL0.0-0.45[facility] HospitalEosinophils/100 WBC Auto (Bld) Ordered By: Singh Kessler 61-69-9343Dzfckdlaoct/100 WBC (Bld)3.8 %.[facility] HospitalErythrocyte distribution width Auto (RBC) [Ratio]Ordered By: Singh Kessler 64-03-9167Kguxwicpixz distribution width (RBC) [Ratio]18.3 % 12.0-14.8[facility] HospitalGlobulin Calc (S) [Mass/Vol]Ordered By: Singh Kessler 11-30-8588Xmamljhc (S) [Mass/Vol]4.3 g/dLMercer County Community HospitalGlucose [Mass/volume] in Serum or PlasmaOrdered By: Singh Kessler 58-78-8431Uxdmbfi [Mass/Vol]136 mg/zA41-128FuxxkifofMercer County Community Hospital Hematocrit Auto (Bld) [Volume fraction]Ordered By: Singh Kessler 10-21-2022 Hematocrit (Bld) [Volume fraction]24.5 %38.8-50.0[facility] HospitalHemoglobin [Mass/volume] in BloodOrdered By: Singh Kessler on 10-21-2022 Hemoglobin (Bld) [Mass/Vol]7.9 g/dL13.0-17.0[facility] Leukocytes [#/volume] corrected for nucleated erythrocytes in Blood by Automated counOrdered By: Singh Kessler on 89-27-0629QUO corrected for nucl RBC Auto (Bld) [#/Vol]13.4 10*3/uL4.1-10.5FProMedica Defiance Regional HospitalLymphocytes Auto (Bld) [#/Vol]Ordered By: Singh Kessler on 61-58-6936Jggljvnyebj (Bld) [#/Vol]5.2 10*3/uL1.00-4.8[facility] HospitalLymphocytes/100 WBC Auto (Bld) Ordered By: Singh Kessler on 89-47-4453Aanrsmaepnx/100 WBC (Bld)38.9 %.[facility] HospitalMCH Auto (RBC) [Entitic mass]Ordered By: Singh Kessler on 28-62-6786MWC (RBC) [Entitic mass]30.5 pg27.5-35.2FProMedica Defiance Regional HospitalMCHC Auto (RBC) [Mass/Vol]Ordered By: Singh Kessler on 79-11-3354KQUX (RBC) [Mass/Vol]32.3 g/dL32.5-35.6FProMedica Defiance Regional HospitalMCV Auto (RBC) [Entitic vol]Ordered By: Singh Kessler on 03-79-4789BSR (RBC) [Entitic vol]94.6 fL83.5-101[facility] HospitalMonocytes Auto (Bld) [#/Vol]Ordered By: Singh Kessler on 13-41-4439Wxblbashv (Bld) [#/Vol]1.3 10*3/uL0.0-0.8[facility] HospitalMonocytes/100 WBC Auto (Bld)Ordered By: Singh Kessler on 27-30-8924Jtowyduqg/100 WBC (Bld)9.9 %.[facility] Neutrophils Auto (Bld) [#/Vol]Ordered By: Singh Kessler on 19-15-0234Onpbxqtpowl (Bld) [#/Vol]6.2 10*3/uL1.8-7.7FProMedica Defiance Regional HospitalNeutrophils/100 WBC Auto (Bld)Ordered By: Singh Kessler on 14-80-3201Auhyzpcvagv/100 WBC (Bld) 46.4 %.[facility] HospitalNo Panel InformationOrdered By: Singh Kessler on 39-33-068343.852 mL/MinMercer County Community Hospital30.88[facility] HospitalNucleated erythrocytes [Presence] in Blood by Automated countOrdered By: Singh Kessler on 20-41-1202Swdfoqrdj RBC Auto Ql (Bld)0.1 /100{WBC}0-0.5FProMedica Defiance Regional HospitalPlatelet mean volume Auto (Bld) [Entitic vol]Ordered By: Singh Kessler on 45-35-9521Fmsrqoqr mean volume (Bld) [Entitic vol]9.2 fL6.6-10.1FProMedica Defiance Regional HospitalPlatelets Auto (Bld) [#/Vol]Ordered By: Singh Kessler on 30-82-2632Xvxxzidpl (Bld) [#/Vol]256 10*3/uL 150-450[facility] HospitalPotassium [Moles/volume] in Serum or PlasmaOrdered By: Singh Kessler on 52-63-9873Qlxnyhkja [Moles/Vol]4.2 mmol/L 3.5-5.1FProMedica Defiance Regional HospitalProtein [Mass/volume] in Serum or Plasma Ordered By: Singh Kessler on 25-37-6757Kjgknhr [Mass/Vol]7.2 g/dL6.4-8.9[facility] HospitalRBC Auto (Bld) [#/Vol]Ordered By: Singh Kessler on 67-11-9908TAJ (Bld) [#/Vol]2.59 10*6/uL3.90-5.60[facility]ville Hospitalerum or plasma albumin/globulin mass ratioOrdered By: Singh Kessler on 07-38-0456Ljwwmwb/Globulin [Mass ratio]0.7 {ratio}[facility]ville Hospitalerum or plasma anion gap determinationOrdered By: Singh Kessler on 86-14-7052Pwuco gap [Moles/Vol]11.1 mmol/L6.0-15.0[facility]ville Hospitalodium [Moles/volume] in Serum or PlasmaOrdered By: Singh Keslser on 62-30-2124Srnuwc [Moles/Vol]141 mmol/A774-153JrnyszaggMercer County Community Hospital Urea nitrogen [Mass/volume] in Serum or PlasmaOrdered By: Singh Kessler on 91-02-0004Pxbf nitrogen [Mass/Vol]29 mg/dL7-25[facility] WBC Auto (Bld) [#/Vol]Ordered By: Singh Kessler on 45-64-2324HSB (Bld) [#/Vol] 13.4 10*3/uL4.1-10.5FProMedica Defiance Regional HospitalBasophils Auto (Bld) [#/Vol]Ordered By: Riya Pitt on 03-07-4194Ozjjxmcif (Bld) [#/Vol]0.1 10*3/uL 0.0-0.2FProMedica Defiance Regional HospitalBasophils/100 WBC Auto (Bld)Ordered By: Riya Pitt on 01-81-1031Bjxtsxqwr/100 WBC (Bld)0.9 %.[facility] HospitalCreatinine [Mass/volume] in Serum or PlasmaOrdered By: Riya Pitt on 92-63-6619Clfwsghkod [Mass/Vol]3.07 mg/dL0.70-1.30[facility] HospitalEosinophils Auto (Bld) [#/Vol]Ordered By: Riya Pitt on 26-85-5810Locdbvcegig (Bld) [#/Vol]0.6 10*3/uL0.0-0.45[facility] HospitalEosinophils/100 WBC Auto (Bld)Ordered By: Riya Pitt on 10-16-2022 Eosinophils/100 WBC (Bld)5.1 %.[facility] HospitalErythrocyte distribution width Auto (RBC) [Ratio]Ordered By: Riya Pitt on 10-16-2022 Erythrocyte distribution width (RBC) [Ratio]17.3 %12.0-14.8[facility] CenterErythrocyte sedimentation rate by Photometric methodOrdered By: Riya Pitt on 91-07-9277WVE Photometric method (Bld) [Velocity]80 mm/hr0-19 [facility] HospitalHematocrit Auto (Bld) [Volume fraction]Ordered By: Riya Pitt on 97-79-3249Jyisaipbvl (Bld) [Volume fraction]23.9 %38.8-50.0 [facility] HospitalHemoglobin [Mass/volume] in BloodOrdered By: Riya Pitt on 27-18-1852Wpoulziaqw (Bld) [Mass/Vol]7.6 g/dL13.0-17.0[facility] HospitalLeukocytes [#/volume] corrected for nucleated erythrocytes in Blood by Automated counOrdered By: Riya Pitt on 10-16-2022 WBC corrected for nucl RBC Auto (Bld) [#/Vol]11.7 10*3/uL4.1-10.5FProMedica Defiance Regional HospitalLymphocytes Auto (Bld) [#/Vol]Ordered By: Riya Pitt on 47-19-7524Dhrkbbpjyxc (Bld) [#/Vol]4.9 10*3/uL1.00-4.8[facility] HospitalLymphocytes/100 WBC Auto (Bld)Ordered By: Riya Pitt on 04-25-3998Cksacvtiztk/100 WBC (Bld)41.3 %.[facility] Auto (RBC) [Entitic mass]Ordered By: Riya Pitt on 46-18-9093TZC (RBC) [Entitic mass]30.4 pg27.5-35.2FProMedica Defiance Regional HospitalMCHC Auto (RBC) [Mass/Vol]Ordered By: Riya Pitt on 55-26-6008BIUS (RBC) [Mass/Vol]31.8 g/dL 32.5-35.6FProMedica Defiance Regional HospitalMCV Auto (RBC) [Entitic vol]Ordered By: Riya Pitt on 14-02-6725LAI (RBC) [Entitic vol]95.7 fL83.5-101[facility] HospitalMonocytes Auto (Bld) [#/Vol]Ordered By: Riya Pitt on 51-98-8944Souxldwux (Bld) [#/Vol]0.7 10*3/uL0.0-0.8[facility] HospitalMonocytes/100 WBC Auto (Bld)Ordered By: Riya Pitt on 10-16-2022 Monocytes/100 WBC (Bld)6.2 %.[facility] HospitalNeutrophils Auto (Bld) [#/Vol]Ordered By: Riya Pitt on 65-34-6863Hdkiferefoq (Bld) [#/Vol]5.5 10*3/uL1.8-7.7FProMedica Defiance Regional HospitalNeutrophils/100 WBC Auto (Bld) Ordered By: Riya Pitt on 75-50-5943Enpuiswfnyr/100 WBC (Bld)46.5 %.[facility] HospitalNo Panel InformationOrdered By: Riya Pitt on 53-32-155800.813 mL/MinMercer County Community HospitalN/AFProMedica Defiance Regional HospitalNucleated erythrocytes [Presence] in Blood by Automated count Ordered By: Riya Pitt on 27-62-3322Tlpjffrmv RBC Auto Ql (Bld)0.9 /100{WBC} 0-0.5FProMedica Defiance Regional HospitalPlatelet mean volume Auto (Bld) [Entitic vol]Ordered By: Riya Pitt on 70-46-7953Inhpiera mean volume (Bld) [Entitic vol]9.9 fL6.6-10.1FProMedica Defiance Regional HospitalPlatelets Auto (Bld) [#/Vol] Ordered By: Riya Pitt on 97-35-1219Uwzxrhdgh (Bld) [#/Vol]254 10*3/gW245-768 [facility] HospitalRBC Auto (Bld) [#/Vol]Ordered By: Riya Pitt on 93-05-7897BUW (Bld) [#/Vol]2.50 10*6/uL3.90-5.60[facility] HospitalWBC Auto (Bld) [#/Vol]Ordered By: Riya Pitt on 67-39-7990AGG (Bld) [#/Vol]11.7 10*3/uL4.1-10.5FProMedica Defiance Regional HospitalAlanine aminotransferase [Enzymatic activity/volume] in Serum or PlasmaOrdered By: Pedro Drake on 14-69-3779ZLR [Catalytic activity/Vol]12 U/L7-52[facility] HospitalAlbumin [Mass/volume] in Serum or Plasma by Bromocresol green (BCG) dye binding methoOrdered By: Pedro Drake on 47-95-5445Yjximkg BCG dye [Mass/Vol]3.1 g/dL3.5-5.7FProMedica Defiance Regional HospitalAlkaline phosphatase [Enzymatic activity/volume] in Serum or PlasmaOrdered By: Pedro Drake on 87-93-4841WJH [Catalytic activity/Vol]156 U/L69-987OvioauqddMercer County Community HospitalAnisocytosis LM Ql (Bld)Ordered By: Pedro Drake on 90-65-0569Mweexxzriiwi Ql (Bld)SlightMercer County Community HospitalAspartate aminotransferase [Enzymatic activity/volume] in Serum or PlasmaOrdered By: Pedro Drake on 68-84-2666XGF [Catalytic activity/Vol]22 U/A21-92RayqbkfmkMercer County Community HospitalBacteria identified Aer cx Nom (Unsp spec)Ordered By: Pedro Drake on 69-59-9557Phtmsbw culturePseudomonas aeruginosa (MDRO)[facility] HospitalAerobic cultureCandida orthopsilosisMercer County Community Hospital Bacteria identified Cx Nom (Bld)Ordered By: Pedro Drake on 06-73-0651Eqyagjzrv blood cultureStenotrophomonas maltophiliaMercer County Community Hospital Bacterial blood cultureChryseobacterium gleumMercer County Community Hospital Bacterial blood cultureOrdered By: Pedro Drake on 37-71-6069Dlthhuye identified Cx Nom (Bld)NO GROWTH 5 DAYSMercer County Community HospitalBacterial susceptibility panel TANNA (Isol)on 12-46-7807Huajruegabqry identified Cx Nom (Unsp spec)[id number]ille VA / Crille HospitalCombeaumont hospital on above:Order Comment: Specimen Type: MICROBIAL ISOLATE [facility]ing Facility[facility] Address: [address] [place] [phone] Comment: Silvanoobacterium kasandraum Identification performed by client.Performed By: #### [id number], VZMIC #### [facility] CLIA [id number] [address] [place], [place] [address] [address] [place] STATES OF AMERICABasophils Auto (Bld) [#/Vol] Ordered By: Pedro Drake on 91-06-5930Iqectrgxm (Bld) [#/Vol]N/[facility] CenterBasophils/100 WBC Auto (Bld)Ordered By: Pdero Drake on 10-13-2022 Basophils/100 WBC (Bld)N/[facility] CenterBilirubin.total [Mass/volume] in Serum or PlasmaOrdered By: Pedro Drake on 72-50-8447Hjcgzenxj [Mass/Vol]0.2 mg/dL0.3-1.0[facility] HospitalCalcium [Mass/volume] in Serum or PlasmaOrdered By: Pedro Drake on 78-74-6886Jnktrzr [Mass/Vol]7.8 mg/dL8.6-10.3FProMedica Defiance Regional HospitalCarbon dioxide, total [Moles/volume] in Serum or PlasmaOrdered By: Pedro Drake on 43-38-6776PD3 [Moles/Vol]25.9 mmol/L21.0-31.0[facility] HospitalChloride [Moles/volume] in Serum or PlasmaOrdered By: Pedro Drake on 24-48-5750Pkdmuzgg [Moles/Vol]106 mmol/Y71-291XtldzhjrkMercer County Community HospitalCreatinine [Mass/volume] in Serum or PlasmaOrdered By: Pedro Drake on 42-01-5331Hzlwotaovh [Mass/Vol]3.30 mg/dL0.70-1.30[facility] HospitalEosinophils Auto (Bld) [#/Vol]Ordered By: Pedro Drake on 80-18-1052Eazppmvhgid (Bld) [#/Vol]N/A [facility] HospitalEosinophils/100 WBC Auto (Bld)Ordered By: Pedro Drake on 92-28-7301Xjrprnrpmqv/100 WBC (Bld)N/[facility] Eosinophils/100 WBC Manual cnt (Bld)Ordered By: Pedro Drake on 10-13-2022 Eosinophils/100 WBC (Bld)6 %1-3FProMedica Defiance Regional HospitalErythrocyte distribution width Auto (RBC) [Ratio]Ordered By: Pedro Drake on 10-13-2022 Erythrocyte distribution width (RBC) [Ratio]16.7 %12.0-14.8[facility] HospitalGlobulin Calc (S) [Mass/Vol]Ordered By: Pedro Drake on 10-13-2022 Globulin (S) [Mass/Vol]4.2 g/dLMercer County Community HospitalGlucose Glucometer (BldC) [Mass/Vol]Ordered By: Pedro Drake on 34-38-0179Jdzcugx [Mass/Vol]137 mg/dLMercer County Community HospitalGlucose [Mass/volume] in Serum or PlasmaOrdered By: Pedro Drake on 64-87-2561Ogrdztf [Mass/Vol]46 mg/dL 70-100Mer[facility] HospitalHematocrit Auto (Bld) [Volume fraction] Ordered By: Pedro Drake on 10-57-3499Gvqxhatzhm (Bld) [Volume fraction]23.5 % 38.8-50.0[facility] HospitalHemoglobin [Mass/volume] in Blood Ordered By: Pedro Drake on 05-45-1686Fkcalvaker (Bld) [Mass/Vol]7.6 g/dL13.0-17.0 [facility] HospitalHypochromia LM Ql (Bld)Ordered By: Pedro Drake on 02-60-8449Phdllgwsipr Ql (Bld)ModerateMercer County Community Hospital Leukocytes [#/volume] corrected for nucleated erythrocytes in Blood by Automated counOrdered By: Pedro Drake on 19-39-7515FJH corrected for nucl RBC Auto (Bld) [#/Vol]13.8 10*3/uL4.1-10.5FProMedica Defiance Regional HospitalLymphocytes Auto (Bld) [#/Vol]Ordered By: Pedro Drake on 24-52-0662Nnnvrpmdtvw (Bld) [#/Vol]N/A [facility] HospitalLymphocytes/100 WBC Auto (Bld)Ordered By: Pedro Drake on 51-64-3485Xretcxwesvv/100 WBC (Bld)N/AFProMedica Defiance Regional Hospital Lymphocytes/100 WBC Manual cnt (Bld)Ordered By: Pedro Drake on 10-13-2022 Lymphocytes/100 WBC (Bld)25 %18-42[facility] HospitalMCH Auto (RBC) [Entitic mass]Ordered By: Pedro Drake on 84-03-1258YBG (RBC) [Entitic mass] 30.3 pg27.5-35.2FTwin City HospitalHC Auto (RBC) [Mass/Vol] Ordered By: Pedro Drake on 36-71-3431OIDP (RBC) [Mass/Vol]32.4 g/dL32.5-35.6 [facility] HospitalV Auto (RBC) [Entitic vol]Ordered By: Pedro Drake on 42-99-2240NCJ (RBC) [Entitic vol]93.4 fL83.5-101[facility] HospitalMINIMUM INHIBITORY CONCENTRATION (VIZION)on 28-88-6635Csfafwvj [Susc]>32ResistantSusceptible <=16 , Intermediate >16 , Resistant >32[facility] CenterCombeaumont hospital on above:Order Comment: Ordering Facility: [facility] Address: [address] [place], [place] [address]Performed By: #### 80424-2, VZMIC #### [facility] CLIA [id number] [address] [place] [address] [place] AMERICACefepime [Susc]<=2 SusceptibleSusceptible <=8 , Intermediate >8 , Resistant >16[facility] Medical CenterComment on above:Order Comment: Ordering Facility: [facility] Address: [address] [place], [place] [address]Performed By: #### 64471-4, VZMIC #### [facility] CLIA [id number] [address] [place] [address] [place] AMERICACiprofloxacin [Susc]0.50 SusceptibleSusceptible <=1 , Intermediate >1 , Resistant >2CBrecksville VA / Crille HospitalCombeaumont hospital on above:Order Comment: Ordering Facility: [facility] Address: [address] [place], [place] [address]Performed By: #### 59613-9, VZMIC #### [facility] CLIA [id number] [address] [place] [address] [place] AMERICAGentamicin [Susc]>8Resistant Susceptible <=4 , Intermediate >4 , Resistant >8CBrecksville VA / [facility]ille Hospital Comment on above:Order Comment: Ordering Facility: [facility] Address: [address] [place], [place] [address]Performed By: #### 97139-5, VZMIC #### [facility] CLIA [id number] [address] [place] [address] [place] AMERICAMeropenem [Susc]>8Resistant Susceptible <=4 , Intermediate >4 , Resistant >8[facility]levelFormerly [facility], [facility] Comment on above:Order Comment: Ordering Facility: [facility] Address: [address] [place], [place] [address]Performed By: #### 06074-6, VZMIC #### [facility] CLIA [id number] [address] [place] [address] [place] AMERICAPiperacillin+Sulbactam TANNA [Susc]32IntermediateSusceptible <=16 , Intermediate >16 , Resistant >64[facility] Medical CenterComment on above:Order Comment: Ordering Facility[facility] Address: [address] [place], [place] [address]Performed By: #### 51779-6, VZMIC #### [facility] CLIA [id number] [address] [place] [address] [place] AMERICATobramycin [Susc]>8Resistant Susceptible <=4 , Intermediate >4 , Resistant >8CBrecksville VA / [facility] Hospital Comment on above:Order Comment: Ordering Facility: [facility] Address: [address] [place], [place] [address]Performed By: #### 95290-1, VZMIC #### [facility] CLIA [id number] [address] [place] [address] [place] Trimethoprim+Sulfamethoxazole [Susc]<=1SusceptibleSusceptible <=2 , Resistant >2 [facility] on above:Order Comment: Ordering Facility: [facility] Address: [address] [place] [id number] By: #### 12235-1, VZMIC #### [facility] CLIA [id number] [address] [facility] [address] [address] [place] OF AMERICAMonocyte distribution width [Entitic volume] in Blood by AutomatedOrdered By: Pedro Drake on 10-13-2022 Monocyte distribution width Auto (Bld) [Entitic vol]21.56 %0.00-20.00[facility] HospitalMonocytes Auto (Bld) [#/Vol]Ordered By: Pedro Drake on 50-55-6016Vbnxfwjki (Bld) [#/Vol]NSelect [facility] Monocytes/100 WBC Auto (Bld)Ordered By: Pedro Drake on 72-88-5870Bxnfqyorb/100 WBC (Bld)N/[facility] CenterMonocytes/100 WBC Manual cnt (Bld) Ordered By: Pedro Drake on 74-93-3423Jnmtafjpx/100 WBC (Bld)6 %2-11[facility] HospitalNeutrophils Auto (Bld) [#/Vol]Ordered By: Pedro Drake on 67-82-1187Cnekoosjrib (Bld) [#/Vol]N[facility] Neutrophils/100 WBC Auto (Bld)Ordered By: Pedro Drake on 10-13-2022 Neutrophils/100 WBC (Bld)[facility] HospitalNo Panel InformationOrdered By: Pedro Drake on 08-06-918493.085 mL/MinMercer County Community Hospital26.32[facility] HospitalNucleated erythrocytes [Presence] in Blood by Automated countOrdered By: Pedro Drake on 10-13-2022 Nucleated RBC Auto Ql (Bld)[facility] HospitalPlatelet adequacy [Presence] in Blood by Light microscopyOrdered By: Pedro Drake on 10-13-2022 Platelets LM Ql (Bld)NormalNormalMercer County Community HospitalPlatelet mean volume Auto (Bld) [Entitic vol]Ordered By: Pedro Drake on 56-85-6275Nvjfwwet mean volume (Bld) [Entitic vol]9.9 fL6.6-10.1FProMedica Defiance Regional Hospital Platelet morphology finding [Identifier] in BloodOrdered By: Pedro Drake on 02-16-8423Rflrhkgl morphology finding Nom (Bld)N/[facility] CenterPlatelets Auto (Bld) [#/Vol]Ordered By: Pedro Drake on 55-15-1567Gsyqkjfaj (Bld) [#/Vol]232 10*3/vM338-220DcuqzuafqMercer County Community HospitalPlatelets Large [Presence] in Blood by Light microscopyOrdered By: Pedro Drake on 10-13-2022 Platelets Large LM Ql (Bld)[facility] HealthPoikilocytosis [Presence] in Blood by Light microscopyOrdered By: Pedro Drake on 10-13-2022 Poikilocytosis LM Ql (Bld)[facility] HealthPolychromasia [Presence] in Blood by Light microscopyOrdered By: Pedro Drake on 10-13-2022 Polychromasia LM Ql (Bld)[facility] CenterPotassium [Moles/volume] in Serum or PlasmaOrdered By: Pedro Drake on 91-43-2545Sqmolqoar [Moles/Vol]4.2 mmol/L3.5-5.1FProMedica Defiance Regional HospitalProtein [Mass/volume] in Serum or PlasmaOrdered By: Pedro Drake on 71-63-8891Qnmecys [Mass/Vol]7.3 g/dL6.4-8.9[facility] HospitalRB Auto (Bld) [#/Vol] Ordered By: Pedro Drake on 36-24-9401LLK (Bld) [#/Vol]2.52 10*6/uL3.90-5.60 [facility] HospitalRB morphologyOrdered By: Pedro Drake on 78-20-7340RWL morphology finding Nom (Bld)N/[facility] Schistocytes [Presence] in Blood by Light microscopyOrdered By: Pedro Drake on 00-76-7518Qtymjgckyhwf LM Ql (Bld)[facility] Segmented neutrophils/100 WBC Manual cnt (Bld)Ordered By: Pedro Drake on 73-34-1460Mhdtpueyy neutrophils/100 WBC (Bld)64 %50-70Barnesville Hospitalerum or plasma albumin/globulin mass ratioOrdered By: Pedro Drake on 02-99-7203Oeomzsq/Globulin [Mass ratio]0.7 {ratio}[facility]ville Hospitalerum or plasma anion gap determinationOrdered By: Pedro Drake on 19-61-6214Yhfzy gap [Moles/Vol]11.3 mmol/L6.0-15.0[facility]ville Hospitalodium [Moles/volume] in Serum or PlasmaOrdered By: Pedro Drake on 60-46-6574Hmvsaz [Moles/Vol]139 mmol/C061-023ByztizeulMercer County Community Hospital Target cellsOrdered By: Pedro Drake on 18-89-2050Cedidf cells LM Ql (Bld)Moderate [facility] HospitalUrea nitrogen [Mass/volume] in Serum or Plasma Ordered By: Pedro Drake on 92-43-7688Hjom nitrogen [Mass/Vol]45 mg/dL7-25 [facility] HospitalWBC Auto (Bld) [#/Vol]Ordered By: Pedro Drake on 14-58-5771QBO (Bld) [#/Vol]13.8 10*3/uL4.1-10.5FProMedica Defiance Regional HospitalBasophils Auto (Bld) [#/Vol]Ordered By: Riya Pitt on 10-11-2022 Basophils (Bld) [#/Vol]0.1 10*3/uL0.0-0.2FProMedica Defiance Regional Hospital Basophils/100 WBC Auto (Bld)Ordered By: Riya Pitt on 78-35-6785Ewjwjrjgz/100 WBC (Bld)1.1 %.[facility] HospitalEosinophils Auto (Bld) [#/Vol] Ordered By: Riya Pitt on 61-04-9385Xxmualvxetn (Bld) [#/Vol]0.5 10*3/uL 0.0-0.45[facility] HospitalEosinophils/100 WBC Auto (Bld)Ordered By: Riya Pitt on 20-83-1010Mcwanagsilp/100 WBC (Bld)4.3 %.[facility] HospitalErythrocyte distribution width Auto (RBC) [Ratio]Ordered By: Riya Pitt on 43-71-2281Bvmguumqfki distribution width (RBC) [Ratio]16.7 % 12.0-14.8[facility] HospitalErythrocyte sedimentation rate by Photometric methodOrdered By: Riya Pitt on 25-85-3926VQB Photometric method (Bld) [Velocity]100 mm/hr0-19[facility] HospitalHematocrit Auto (Bld) [Volume fraction]Ordered By: Riya Pitt on 52-26-4025Bzmusextdu (Bld) [Volume fraction]23.7 %38.8-50.0[facility] HospitalHemoglobin [Mass/volume] in BloodOrdered By: Riya Pitt on 52-62-8462Qlluezbgwr (Bld) [Mass/Vol]7.6 g/dL13.0-17.0[facility] HospitalLeukocytes [#/volume] corrected for nucleated erythrocytes in Blood by Automated coun Ordered By: Riya Pitt on 42-35-4000XUV corrected for nucl RBC Auto (Bld) [#/Vol]11.3 10*3/uL4.1-10.5FProMedica Defiance Regional HospitalLymphocytes Auto (Bld) [#/Vol]Ordered By: Riya Pitt on 02-33-5517Gbxmxtdbkyz (Bld) [#/Vol]4.6 10*3/uL1.00-4.8[facility] HospitalLymphocytes/100 WBC Auto (Bld) Ordered By: Riya Pitt on 39-74-2642Wzjikslkjdi/100 WBC (Bld)41.1 %.[facility] HospitalMCH Auto (RBC) [Entitic mass]Ordered By: Riya Pitt on 38-95-0635IKH (RBC) [Entitic mass]30.2 pg27.5-35.2FProMedica Defiance Regional HospitalMCHC Auto (RBC) [Mass/Vol]Ordered By: Riya Pitt on 47-79-9896KEML (RBC) [Mass/Vol]32.2 g/dL32.5-35.6FProMedica Defiance Regional HospitalMCV Auto (RBC) [Entitic vol]Ordered By: Riya Pitt on 07-78-3544BZD (RBC) [Entitic vol]93.9 fL83.5-101[facility] HospitalMonocytes Auto (Bld) [#/Vol] Ordered By: Riya Pitt on 96-93-4859Yztnicoux (Bld) [#/Vol]0.5 10*3/uL0.0-0.8 [facility] HospitalMonocytes/100 WBC Auto (Bld)Ordered By: Riya Pitt on 79-24-5222Ffaoqjtgv/100 WBC (Bld)4.3 %.[facility] HospitalNeutrophils Auto (Bld) [#/Vol]Ordered By: iRya Pitt on 10-11-2022 Neutrophils (Bld) [#/Vol]5.6 10*3/uL1.8-7.7FProMed[facility] Neutrophils/100 WBC Auto (Bld)Ordered By: Riya Pitt on 10-11-2022 Neutrophils/100 WBC (Bld)49.2 %.[facility] HospitalNucleated erythrocytes [Presence] in Blood by Automated countOrdered By: Riya Pitt on 29-13-6616Ihmifgyqj RBC Auto Ql (Bld)0.3 /100{WBC}0-0.5FProMedica Defiance Regional HospitalPlatelet mean volume Auto (Bld) [Entitic vol]Ordered By: Riya Pitt on 14-20-3862Jsxanrxt mean volume (Bld) [Entitic vol]10.7 fL6.6-10.1 [facility] HospitalPlatelets Auto (Bld) [#/Vol]Ordered By: Riya Pitt on 64-39-9131Gkrkpkmxp (Bld) [#/Vol]203 10*3/kJ976-646BzkpnahvvMercer County Community HospitalRBC Auto (Bld) [#/Vol]Ordered By: Riya Pitt on 68-90-0317BRF (Bld) [#/Vol]2.52 10*6/uL3.90-5.60[facility] HospitalWBC Auto (Bld) [#/Vol]Ordered By: Riya Pitt on 72-93-1033HES (Bld) [#/Vol]11.3 10*3/uL4.1-10.5FProMedica Defiance Regional HospitalCreatinine [Mass/volume] in Serum or PlasmaOrdered By: Riya Pitt on 55-37-3286Zeyvzjniwi [Mass/Vol]3.02 mg/dL0.70-1.30[facility] HospitalNo Panel InformationOrdered By: Riya Pitt on .228 mL/MinMercer County Community HospitalN/A [facility] HospitalAlanine aminotransferase [Enzymatic activity/volume] in Serum or PlasmaOrdered By: Mervat Santiago on 30-73-0145FXP [Catalytic activity/Vol]26 U/L7-52[facility] HospitalAlbumin [Mass/volume] in Serum or Plasma by Bromocresol green (BCG) dye binding metho Ordered By: Mervat Santiago on 95-26-5803Tbubtur BCG dye [Mass/Vol]3.4 g/dL3.5-5.7 [facility] HospitalAlkaline phosphatase [Enzymatic activity/volume] in Serum or PlasmaOrdered By: Mervat Santiago on 99-38-3055VKP [Catalytic activity/Vol]199 U/P88-842NycvlgtuiMercer County Community HospitalAspartate aminotransferase [Enzymatic activity/volume] in Serum or PlasmaOrdered By: Mervat Santiago on 61-98-7741DGZ [Catalytic activity/Vol]41 U/A68-85DewvcztmtMercer County Community HospitalBasophils Auto (Bld) [#/Vol]Ordered By: Mervat Santiago on 10-03-2022 Basophils (Bld) [#/Vol]0.2 10*3/uL0.0-0.2FProMedica Defiance Regional Hospital Basophils/100 WBC Auto (Bld)Ordered By: Mervat Santiago on 52-05-1511Ucrmxlygv/100 WBC (Bld)1.8 %.[facility] HospitalBilirubin.total [Mass/volume] in Serum or PlasmaOrdered By: Mervat Santiago on 09-15-4550Opkqtwwpr [Mass/Vol]0.3 mg/dL0.3-1.0[facility] HospitalCalcium [Mass/volume] in Serum or PlasmaOrdered By: Mervat Santiago on 30-55-6690Kllrycs [Mass/Vol]7.8 mg/dL8.6-10.3 [facility] HospitalCarbon dioxide, total [Moles/volume] in Serum or PlasmaOrdered By: Mervat Santiago on 57-65-3136LK0 [Moles/Vol]20.8 mmol/L 21.0-31.0[facility] HospitalChloride [Moles/volume] in Serum or PlasmaOrdered By: Mervat Santiago on 52-91-7144Juipbfvo [Moles/Vol]111 mmol/L98-107 [facility] HospitalCreatinine [Mass/volume] in Serum or Plasma Ordered By: Mervat Santiago on 62-24-5172Oanuhvlace [Mass/Vol]3.51 mg/dL0.70-1.30 [facility] HospitalEosinophils Auto (Bld) [#/Vol]Ordered By: Mervat Santiago on 09-15-1677Hdkpywaidxy (Bld) [#/Vol]0.6 10*3/uL0.0-0.45[facility] HospitalEosinophils/100 WBC Auto (Bld)Ordered By: Mervat Santiago on 31-56-6303Dxfsxgsmrax/100 WBC (Bld)4.9 %.[facility] Erythrocyte distribution width Auto (RBC) [Ratio]Ordered By: Mervat Santiago on 23-22-7323Qggmwwsezuo distribution width (RBC) [Ratio]16.4 %12.0-14.8[facility] HospitalGlobulin Calc (S) [Mass/Vol]Ordered By: Mervat Santiago on 28-36-7819Mkwzugtr (S) [Mass/Vol]4.1 g/dLMercer County Community Hospital Glucose [Mass/volume] in Serum or PlasmaOrdered By: Mervat Santiago on 10-03-2022 Glucose [Mass/Vol]129 mg/pQ58-250OxuqjagkuMercer County Community HospitalHematocrit Auto (Bld) [Volume fraction]Ordered By: Mervat Santiago on 24-76-8652Gvlqkrjeuf (Bld) [Volume fraction]26.1 %38.8-50.0[facility] Hemoglobin [Mass/volume] in BloodOrdered By: Mervat Santiago on 10-03-2022 Hemoglobin (Bld) [Mass/Vol]8.3 g/dL13.0-17.0[facility] Leukocytes [#/volume] corrected for nucleated erythrocytes in Blood by Automated counOrdered By: Mervat Santiago on 35-64-5070NJE corrected for nucl RBC Auto (Bld) [#/Vol]13.1 10*3/uL4.1-10.5FProMedica Defiance Regional HospitalLymphocytes Auto (Bld) [#/Vol]Ordered By: Mervat Santiago on 23-49-0542Wzfnweibgha (Bld) [#/Vol]4.1 10*3/uL1.00-4.8[facility] HospitalLymphocytes/100 WBC Auto (Bld) Ordered By: Mervat Santiago on 86-40-9935Summbinnhlk/100 WBC (Bld)31.8 %.[facility] HospitalMCH Auto (RBC) [Entitic mass]Ordered By: Mervat Santiago on 84-62-8579ZLH (RBC) [Entitic mass]30.0 pg27.5-35.2FProMedica Defiance Regional HospitalMCHC Auto (RBC) [Mass/Vol]Ordered By: Mervat Santiago on 82-52-4294YEWI (RBC) [Mass/Vol]32.0 g/dL32.5-35.6FProMedica Defiance Regional HospitalMCV Auto (RBC) [Entitic vol]Ordered By: Mervat Santiago on 58-09-8024WIC (RBC) [Entitic vol]93.6 fL83.5-101[facility] HospitalMonocytes Auto (Bld) [#/Vol]Ordered By: Mervat Santiago on 54-13-1820Jlqtyqhpd (Bld) [#/Vol]0.9 10*3/uL0.0-0.8[facility] HospitalMonocytes/100 WBC Auto (Bld)Ordered By: Mervat Santiago on 31-64-2694Pglapclgl/100 WBC (Bld)6.8 %.[facility] Natriuretic peptide B [Mass/Vol]Ordered By: Mervat Santiago on 10-03-2022 Natriuretic peptide B (Bld) [Mass/Vol]38.0 pg/mL5-100[facility] HospitalNeutrophils Auto (Bld) [#/Vol]Ordered By: Mervat Santiago on 10-03-2022 Neutrophils (Bld) [#/Vol]7.2 10*3/uL1.8-7.7FProMedica Defiance Regional Hospital Neutrophils/100 WBC Auto (Bld)Ordered By: Mervat Santiago on 10-03-2022 Neutrophils/100 WBC (Bld)54.7 %.[facility] HospitalNo Panel InformationOrdered By: Mervat Santiago on 55-39-755673.723 mL/MinMercer County Community HospitalN/AFProMedica Defiance Regional HospitalNucleated erythrocytes [Presence] in Blood by Automated countOrdered By: Mervat Santiago on 10-03-2022 Nucleated RBC Auto Ql (Bld)0.1 /100{WBC}0-0.5FProMedica Defiance Regional Hospital Platelet mean volume Auto (Bld) [Entitic vol]Ordered By: Mervat Santiago on 99-14-9444Ohgvsksn mean volume (Bld) [Entitic vol]11.1 fL6.6-10.1FProMedica Defiance Regional HospitalPlatelets Auto (Bld) [#/Vol]Ordered By: Mervat Santiago on 59-02-9245Bxwvfswsb (Bld) [#/Vol]196 10*3/hB625-526AcxvnnqktMercer County Community HospitalPotassium [Moles/volume] in Serum or PlasmaOrdered By: Mervat Santiago on 02-58-8329Dryljyfgv [Moles/Vol]4.6 mmol/L3.5-5.1FProMedica Defiance Regional HospitalPrealbumin [Mass/volume] in Serum or PlasmaOrdered By: Mervat Santiago on 03-33-7645Mvsgoxwxab [Mass/Vol]20.3 mg/dL17.0-34.0[facility] HospitalProtein [Mass/volume] in Serum or PlasmaOrdered By: Mervat Santiago on 88-43-5254Mdlwgea [Mass/Vol]7.5 g/dL6.4-8.9[facility] HospitalRBC Auto (Bld) [#/Vol]Ordered By: Mervat Santiago on 81-61-7707SBT (Bld) [#/Vol]2.78 10*6/uL3.90-5.60[facility] Hospitalerum or plasma albumin/globulin mass ratioOrdered By: Mervat Santiago on 10-03-2022 Albumin/Globulin [Mass ratio]0.8 {ratio}[facility] Hospitalerum or plasma anion gap determinationOrdered By: Mervat Santiago on 89-94-8964Pcqnq gap [Moles/Vol]12.8 mmol/L6.0-15.0[facility] Hospitalodium [Moles/volume] in Serum or PlasmaOrdered By: Mervat Santiago on 18-98-7803Wjxuxx [Moles/Vol]140 mmol/O070-387IbqzlusigMercer County Community HospitalUrea nitrogen [Mass/volume] in Serum or PlasmaOrdered By: Mervat Santiago on 66-98-9394Eyen nitrogen [Mass/Vol]48 mg/dL7-25[facility] HospitalWBC Auto (Bld) [#/Vol]Ordered By: Mervat Santiago on 93-73-1134YIF (Bld) [#/Vol]13.1 10*3/uL 4.1-10.5FProMedica Defiance Regional HospitalAcanthocytes [Presence] in Blood by Light microscopyOrdered By: Riya Pitt on 73-10-8459Eucnbztzmijg LM Ql (Bld) [facility] HealthAnisocytosis LM Ql (Bld)Ordered By: Riya Pitt on 54-85-3712Cvsdmyzxrksk Ql (Bld)[facility] CenterBasophils Auto (Bld) [#/Vol]Ordered By: Riya Pitt on 64-86-9602Tvemrbodm (Bld) [#/Vol]N/[facility] Basophils/100 WBC Auto (Bld)Ordered By: Riya Pitt on 91-48-8661Qywyqodbt/100 WBC (Bld)N/[facility] CenterBurr cells [Presence] in Blood by Light microscopyOrdered By: Riya Pitt on 66-25-9384Apfz cells LM Ql (Bld) [facility] HealthCreatinine [Mass/volume] in Serum or PlasmaOrdered By: Riya Pitt on 64-55-6700Nzxnmarttc [Mass/Vol]3.49 mg/dL 0.70-1.30[facility] HospitalEosinophils Auto (Bld) [#/Vol]Ordered By: Riya Pitt on 57-45-1514Qxmwjkskjsq (Bld) [#/Vol]N/[facility] CenterEosinophils/100 WBC Auto (Bld)Ordered By: Riya Pitt on 77-31-3655Yrfsynxjgei/100 WBC (Bld)N/[facility] Eosinophils/100 WBC Manual cnt (Bld)Ordered By: Riya Pitt on 10-02-2022 Eosinophils/100 WBC (Bld)8 %1-3FProMedica Defiance Regional HospitalErythrocyte distribution width Auto (RBC) [Ratio]Ordered By: Riya Pitt on 10-02-2022 Erythrocyte distribution width (RBC) [Ratio]16.8 %12.0-14.8[facility] HospitalErythrocyte sedimentation rate by Photometric methodOrdered By: Riya Pitt on 70-58-4296WBM Photometric method (Bld) [Velocity]125 mm/hr0-19 [facility] HospitalGiant platelets/100 leukocytes [Ratio] in Blood by Manual countOrdered By: Riya Pitt on 45-05-3422Msbqh platelets/100 WBC Manual cnt (Bld) [Ratio]7 /100{WBC}[facility] HospitalHematocrit Auto (Bld) [Volume fraction]Ordered By: Riya Pitt on 57-33-7558Xffuslckiz (Bld) [Volume fraction]23.7 %38.8-50.0[facility] Hemoglobin [Mass/volume] in BloodOrdered By: Riya Pitt on 10-02-2022 Hemoglobin (Bld) [Mass/Vol]7.9 g/dL13.0-17.0[facility] Hypochromia LM Ql (Bld)Ordered By: Riya Pitt on 12-04-5218Xyjvsdzooyr Ql (Bld)MarkedMercer County Community HospitalLeukocytes [#/volume] corrected for nucleated erythrocytes in Blood by Automated counOrdered By: Riya Pitt on 36-54-1638RAP corrected for nucl RBC Auto (Bld) [#/Vol]12.4 10*3/uL4.1-10.5 [facility] HospitalLymphocytes Auto (Bld) [#/Vol]Ordered By: Riya Pitt on 16-26-4083Hrlkcxcitus (Bld) [#/Vol]N/[facility] CenterLymphocytes/100 WBC Auto (Bld)Ordered By: Riya Pitt on 96-56-3411Auekvqoivbm/100 WBC (Bld)N/[facility] Lymphocytes/100 WBC Manual cnt (Bld)Ordered By: Riya Pitt on 10-02-2022 Lymphocytes/100 WBC (Bld)29 %18-42[facility] HospitalMCH Auto (RBC) [Entitic mass]Ordered By: Riya Pitt on 46-27-0075KDV (RBC) [Entitic mass]32.2 pg27.5-35.2FProMedica Defiance Regional HospitalMCHC Auto (RBC) [Mass/Vol] Ordered By: Riya Pitt on 85-74-3280HWHX (RBC) [Mass/Vol]33.2 g/dL32.5-35.6 [facility] HospitalMCV Auto (RBC) [Entitic vol]Ordered By: Riya Pitt on 46-98-1828OXU (RBC) [Entitic vol]97.0 fL83.5-101[facility] HospitalMacrocytes LM Ql (Bld)Ordered By: Riya Pitt on 10-02-2022 Macrocytes Ql (Bld)SlightMercer County Community HospitalMonocytes Auto (Bld) [#/Vol]Ordered By: Riya Pitt on 57-59-7587Hcjhfodgf (Bld) [#/Vol]N/A [facility] HospitalMonocytes/100 WBC Auto (Bld)Ordered By: Riya Pitt on 98-83-5978Waynfijjt/100 WBC (Bld)N/[facility] Monocytes/100 WBC Manual cnt (Bld)Ordered By: Riya Pitt on 10-02-2022 Monocytes/100 WBC (Bld)7 %2-11[facility] HospitalNeutrophils Auto (Bld) [#/Vol]Ordered By: Riya Pitt on 43-15-8541Cxqpptejuue (Bld) [#/Vol]N/A [facility] HospitalNeutrophils/100 WBC Auto (Bld)Ordered By: Riya Pitt on 64-20-6962Jfvgaftcjjc/100 WBC (Bld)N/[facility] CenterNo Panel InformationOrdered By: Riya Pitt on 62-42-752619.845 mL/MinMercer County Community HospitalN/[facility] Nucleated RBC/100 WBC Manual cnt (Bld) [Ratio]Ordered By: Riya Pitt on 52-06-6161Puvogevkj RBC/100 WBC (Bld) [Ratio]1 /100{WBC}0-0[facility] HospitalNucleated erythrocytes [Presence] in Blood by Automated count Ordered By: Riya Pitt on 05-03-3009Mwkxdtwvp RBC Auto Ql (Bld)N/[facility] CenterPlatelet adequacy [Presence] in Blood by Light microscopy Ordered By: Riya Pitt on 26-45-4099Emsqhgfum LM Ql (Bld)NormalNormal [facility] HospitalPlatelet mean volume Auto (Bld) [Entitic vol] Ordered By: Riya Pitt on 43-73-2673Wwiydkpm mean volume (Bld) [Entitic vol] 10.4 fL6.6-10.1FProMedica Defiance Regional HospitalPlatelet morphology finding [Identifier] in BloodOrdered By: Riya Pitt on 82-41-5327Miruscuo morphology finding Nom (Bld)N/[facility] CenterPlatelets Auto (Bld) [#/Vol]Ordered By: Riya Pitt on 13-56-4933Cjmffucwl (Bld) [#/Vol]173 10*3/uL 150-450[facility] HospitalPoikilocytosis [Presence] in Blood by Light microscopyOrdered By: Riya Pitt on 06-72-2984Lnioallaakqbec LM Ql (Bld)ModerateMercer County Community HospitalPolychromasia [Presence] in Blood by Light microscopyOrdered By: Riya Pitt on 48-00-9054Qfcsxajhcgzjk LM Ql (Bld)MarkedMercer County Community HospitalRBC Auto (Bld) [#/Vol]Ordered By: Riya Pitt on 99-60-4283AQM (Bld) [#/Vol]2.44 10*6/uL3.90-5.60[facility] HospitalRB morphologyOrdered By: Riya Pitt on 36-72-4224JOW morphology finding Nom (Bld)N/[facility] Hospitalegmented neutrophils/100 WBC Manual cnt (Bld)Ordered By: Riya Pitt on 10-02-2022 Segmented neutrophils/100 WBC (Bld)57 %50-70[facility] Target cellsOrdered By: Riya Pitt on 39-72-0059Mdaquv cells LM Ql (Bld) ModerateMercer County Community HospitalWBC Auto (Bld) [#/Vol]Ordered By: Riya Pitt on 00-18-5247GBI (Bld) [#/Vol]12.4 10*3/uL4.1-10.5FProMedica Defiance Regional HospitalCNPNon 85-31-9194TXPAOecufaijb (IRRFV) SIMON LOTT ([id number]) 1950 M Date Time Provider Department 09/23/22 [...] Date Reviewed: 07/18/2022 Reviewed by: Kimber See APRN.ROVING SIZER - Fully Assessed Reason for Visit: tube [...] mouth every 8 hours as needed. - sulfamethoxazole-trimethoprim (BACTRIM DS,SEPTRA DS) 800-160 mg per [...] COMPLEX (B-COMPLEX ORAL) Take by mouth. - PSEUDOEPHEDRINE/ACETAMINOPHEN (CEPACOL SORE THROAT ORAL) Take by [...] 07/18/2022 Encounter Status:Closed by BRI FAIR on 09/23/22[facility] Acanthocytes [Presence] in Blood by Light microscopyOrdered By: Kevin Steinberg on 08-95-3573Uwtxcxheyvno LM Ql (Bld)[facility] HealthAlbumin [Mass/volume] in Serum or Plasma by Bromocresol green (BCG) dye binding metho Ordered By: Kevin Steinberg on 64-49-3402Hiehbcf BCG dye [Mass/Vol]3.0 g/dL3.5-5.7 [facility] HospitalAnisocytosis LM Ql (Bld)Ordered By: Kevin Steinberg on 03-03-7140Svjxudslkgnc Ql (Bld)[facility] CenterBasophils Auto (Bld) [#/Vol]Ordered By: Kevin Steinberg on 09-12-2022 Basophils (Bld) [#/Vol]N/AFProMedica Defiance Regional HospitalBasophils/100 WBC Auto (Bld)Ordered By: Kevin Steinberg on 36-02-6435Lnztqlxnu/100 WBC (Bld)2.0 %. [facility] HospitalBurr cells [Presence] in Blood by Light microscopyOrdered By: Kevin Steinberg on 85-20-1308Hdmz cells LM Ql (Bld)Slight [facility] HospitalCalcium [Mass/volume] in Serum or PlasmaOrdered By: Kevin Steinberg on 84-50-8708Nqkbzqm [Mass/Vol]8.3 mg/dL8.6-10.3FProMedica Defiance Regional HospitalCarbon dioxide, total [Moles/volume] in Serum or Plasma Ordered By: Kevin Steinberg on 12-85-9040JJ1 [Moles/Vol]19.2 mmol/L21.0-31.0 [facility] HospitalChloride [Moles/volume] in Serum or Plasma Ordered By: Kevin Steinberg on 88-16-6828Detnkekh [Moles/Vol]112 mmol/L98-107 [facility] HospitalCreatinine [Mass/volume] in Serum or Plasma Ordered By: Kevin Steinberg on 88-56-3632Jjtyjijlmh [Mass/Vol]4.89 mg/dL0.70-1.30 [facility] HospitalEosinophils Auto (Bld) [#/Vol]Ordered By: Kevin Steinberg on 18-82-1619Iroowofoilz (Bld) [#/Vol]N/AFProMedica Defiance Regional HospitalEosinophils/100 WBC Auto (Bld)Ordered By: Kevin Steinberg on 09-12-2022 Eosinophils/100 WBC (Bld)3.0 %.[facility] HospitalErythrocyte distribution width Auto (RBC) [Ratio]Ordered By: Kevin Steinberg on 09-12-2022 Erythrocyte distribution width (RBC) [Ratio]16.4 %12.0-14.8[facility] HospitalGlucose Glucometer (BldC) [Mass/Vol]Ordered By: Kevin Steinberg on 92-16-0880Xciqjoi [Mass/Vol]99 mg/dLMercer County Community HospitalGlucose [Mass/volume] in Serum or PlasmaOrdered By: Kevin Brunsonam on 27-70-0343Lpcpvci [Mass/Vol]75 mg/tI50-812DjkqewxgrMercer County Community HospitalHematocrit Auto (Bld) [Volume fraction]Ordered By: Kevin Maryan on 56-10-6185Urxnngwkvw (Bld) [Volume fraction]26.1 %38.8-50.0[facility] HospitalHemoglobin [Mass/volume] in BloodOrdered By: Kevin Maryan on 21-04-6720Euhovcgujj (Bld) [Mass/Vol]8.5 g/dL13.0-17.0[facility] HospitalHypochromia LM Ql (Bld)Ordered By: Kevin Maryan on 55-90-8755Bbrvqttlrdz Ql (Bld)ModerateMercer County Community HospitalLeukocytes [#/volume] corrected for nucleated erythrocytes in Blood by Automated counOrdered By: Kevin Maryan on 62-39-3280NCH corrected for nucl RBC Auto (Bld) [#/Vol]13.6 10*3/uL4.1-10.5FProMedica Defiance Regional HospitalLymphocytes Auto (Bld) [#/Vol]Ordered By: Kevin Maryan on 42-41-2223Mbesclznbxa (Bld) [#/Vol]N/AFProMedica Defiance Regional Hospital Lymphocytes/100 WBC Auto (Bld)Ordered By: Kevin Maryan on 09-12-2022 Lymphocytes/100 WBC (Bld)36.0 %.[facility] HospitalMCH Auto (RBC) [Entitic mass]Ordered By: Kevin Maryan on 85-23-6351OTL (RBC) [Entitic mass]30.4 pg27.5-35.2FProMedica Defiance Regional HospitalMCHC Auto (RBC) [Mass/Vol]Ordered By: Kevin Maryan on 93-93-8928MVXC (RBC) [Mass/Vol]32.7 g/dL32.5-35.6FProMedica Defiance Regional HospitalMCV Auto (RBC) [Entitic vol]Ordered By: Kevin Maryan on 27-74-9303RLB (RBC) [Entitic vol]92.9 fL83.5-101[facility] HospitalMacrocytes LM Ql (Bld)Ordered By: Kevin Steinberg on 32-40-6069Rocazhdbcp Ql (Bld)SlightMercer County Community HospitalMonocytes Auto (Bld) [#/Vol]Ordered By: Kevin Brunsonam on 28-40-4636Rflmzctbb (Bld) [#/Vol]N/AFProMedica Defiance Regional HospitalMonocytes/100 WBC Auto (Bld)Ordered By: Kevin Steinberg on 09-12-2022 Monocytes/100 WBC (Bld)1.0 %.[facility] HospitalNeutrophils Auto (Bld) [#/Vol]Ordered By: Kevin Steinberg on 77-34-0509Cerdzyzfcnq (Bld) [#/Vol]N/A [facility] HospitalNeutrophils/100 WBC Auto (Bld)Ordered By: Kevin Steinberg on 10-16-6992Uanxebrulqh/100 WBC (Bld)59.0 %.[facility] HospitalNo Panel InformationOrdered By: Kevin Steinberg on 13-71-427754.906 mL/Min [facility]18.07[facility] HospitalNucleated erythrocytes [Presence] in Blood by Automated countOrdered By: Kevin Steinberg on 41-52-1182Lpogyupmi RBC Auto Ql (Bld)0.0 /100{WBC}0-0.5FProMedica Defiance Regional HospitalPhosphate [Mass/volume] in Serum or PlasmaOrdered By: Kevin Steinberg on 22-46-6824Mrjoeoagp [Mass/Vol]3.5 mg/dL3.7-7.2FProMedica Defiance Regional HospitalPlatelet adequacy [Presence] in Blood by Light microscopyOrdered By: Kevin Steinberg on 76-46-9526Bxtpwhvsi LM Ql (Bld)NormalNormalMercer County Community HospitalPlatelet mean volume Auto (Bld) [Entitic vol]Ordered By: Kevin Steinberg on 81-09-3054Dencrreh mean volume (Bld) [Entitic vol]10.0 fL6.6-10.1FProMedica Defiance Regional HospitalPlatelet morphology finding [Identifier] in BloodOrdered By: Kevin Steinberg on 63-27-7937Sgdsvhzy morphology finding Nom (Bld)NormalNormal [facility] HospitalPlatelets Auto (Bld) [#/Vol]Ordered By: KevinBrisenoam on 18-44-8808Ahwhqengc (Bld) [#/Vol]168 10*3/vW228-486DlzdhhatmMercer County Community HospitalPoikilocytosis [Presence] in Blood by Light microscopyOrdered By: Kevin Maryan on 34-63-5994Cjwcsrsowrstvv LM Ql (Bld)ModerateMercer County Community HospitalPolychromasia [Presence] in Blood by Light microscopyOrdered By: Kevin Maryan on 60-55-7798Oljxyislzgywv LM Ql (Bld)[facility] CenterPotassium [Moles/volume] in Serum or PlasmaOrdered By: KevinBrisenoam on 88-96-8991Pccpoylfs [Moles/Vol]4.9 mmol/L3.5-5.1FProMedica Defiance Regional HospitalRBC Auto (Bld) [#/Vol]Ordered By: KevinMarquis on 29-76-4727HVY (Bld) [#/Vol]2.81 10*6/uL3.90-5.60[facility] HospitalRBC morphologyOrdered By: KevinBrisenoam on 79-13-1114FSO morphology finding Nom (Bld) N/AFMercy Health Anderson Hospitalerum or plasma anion gap determination Ordered By: KevinMarquis on 54-34-5773Ncoho gap [Moles/Vol]10.7 mmol/L6.0-15.0 [facility] Hospitalodium [Moles/volume] in Serum or PlasmaOrdered By: KevinBrisenoam on 33-19-2147Pomtld [Moles/Vol]137 mmol/B820-965IevtngqwaMercer County Community HospitalTarget cellsOrdered By: Kevin Maryan on 85-41-1012Ipshds cells LM Ql (Bld)SlightMercer County Community HospitalUrea nitrogen [Mass/volume] in Serum or PlasmaOrdered By: Kevin Maryan on 95-92-4813Yppx nitrogen [Mass/Vol]43 mg/dL7-25[facility] HospitalVancomycin [Mass/volume] in Serum or PlasmaOrdered By: Kevin Steinberg on 02-72-9543Bovgwoiavy [Mass/Vol]14.0 ug/mL5.0-20.0[facility] HospitalWBC Auto (Bld) [#/Vol]Ordered By: Kevin Steinberg on 29-54-4686OIG (Bld) [#/Vol]13.6 10*3/uL 4.1-10.5FProMedica Defiance Regional HospitalActivated partial thromboplastin time (aPTT) in platelet poor plasma by coagulation aOrdered By: Serafin Pearson on 78-10-7009fQVZ Coag (PPP) [Time]30.9 s25.1-36.5FProMedica Defiance Regional Hospital Automated erythrocytes count in urine sediment (number/area)Ordered By: Serafin Pearson on 90-62-0668UCQ Auto (Urine sed) [#/Area]1-2 [HPF]0-4FProMedica Defiance Regional HospitalAutomated leukocytes count in urine sediment (number/area)Ordered By: Serafin Pearson on 17-75-4602CGO Auto (Urine sed) [#/Area]None seen [HPF]0-4FProMedica Defiance Regional HospitalBacteria identified Aer cx Nom (Unsp spec)Ordered By: Serafin Pearson on 76-95-5152Nwclaqp culture Proteus mirabilisMercer County Community HospitalAerobic cultureProvidencia stuartii (MDRO)[facility] HospitalAerobic cultureEnterococcus faecalis (VRE)[facility] HospitalAerobic culturePseudomonas aeruginosaMercer County Community HospitalBacterial blood cultureOrdered By: Serafin Pearson on 93-80-0207Swjvtepe identified Cx Nom (Bld)NO GROWTH 5 DAYS [facility] HospitalBasophils Auto (Bld) [#/Vol]Ordered By: Serafin Pearson on 75-03-3284Ttsnfkukv (Bld) [#/Vol]0.0 10*3/uL0.0-0.2FProMedica Defiance Regional HospitalBasophils/100 WBC Auto (Bld)Ordered By: Serafin Pearson on 17-14-5445Ayvzsvqol/100 WBC (Bld)0.4 %.[facility] Bilirubin Test strip Ql (U)Ordered By: Serafin Pearson on 24-95-3063Wryeertit Ql (U)NegativeNegativeMercer County Community HospitalBilirubin.total [Mass/volume] in Serum or PlasmaOrdered By: Serafin Pearson on 40-33-7126Vhfycxmus [Mass/Vol]0.3 mg/dL0.3-1.0[facility] HospitalC reactive protein [Mass/volume] in Serum or PlasmaOrdered By: Serafin Pearson on 66-38-8698VXE [Mass/Vol]0.8 mg/dL0.0-0.5FProMedica Defiance Regional HospitalCalcium [Mass/volume] in Serum or PlasmaOrdered By: Serafin Pearson on 01-37-4133Ijhxcse [Mass/Vol]8.5 mg/dL8.6-10.3FProMedica Defiance Regional HospitalCarbon dioxide, total [Moles/volume] in Serum or PlasmaOrdered By: Serafin Pearson on 29-99-0021GA1 [Moles/Vol]19.7 mmol/L21.0-31.0[facility] HospitalChloride [Moles/volume] in Serum or PlasmaOrdered By: Serafin Pearson on 07-65-4000Dheibcfh [Moles/Vol]107 mmol/N29-018QrgfhyiafMercer County Community HospitalColor Auto (U) Ordered By: Serafin Pearson on 74-42-6810Ijqqc (U)YellowYellowMercer County Community HospitalCreatinine [Mass/volume] in Serum or PlasmaOrdered By: Serafin Pearson on 41-76-1642Pfpsbqlctb [Mass/Vol]4.41 mg/dL0.70-1.30[facility] HospitalEosinophils Auto (Bld) [#/Vol]Ordered By: Serafin Pearson on 08-97-9212Cjsticyimtl (Bld) [#/Vol]0.4 10*3/uL0.0-0.45[facility] HospitalEosinophils/100 WBC Auto (Bld)Ordered By: Serafin Pearson on 09-10-2022 Eosinophils/100 WBC (Bld)3.5 %.[facility] HospitalErythrocyte distribution width Auto (RBC) [Ratio]Ordered By: Serafin Pearson on 09-10-2022 Erythrocyte distribution width (RBC) [Ratio]16.3 %12.0-14.8[facility] HospitalErythrocyte sedimentation rate by Photometric methodOrdered By: Serafin Pearson on [id number] Photometric method (Bld) [Velocity]122 mm/hr0-19 [facility] HospitalGlucose [Mass/volume] in Serum or PlasmaOrdered By: Serafin Pearson on [id number] [Mass/Vol]130 mg/fD94-753VepppmbumMercer County Community HospitalHematocrit Auto (Bld) [Volume fraction]Ordered By: Serafin Pearson on [id number] (Bld) [Volume fraction]29.9 %38.8-50.0[facility] HospitalHemoglobin [Mass/volume] in BloodOrdered By: Serafin Pearson on 51-91-9606Qpozovxebi (Bld) [Mass/Vol]9.5 g/dL13.0-17.0[facility] HospitalKetones Auto test strip (U) [Mass/Vol]Ordered By: Serafin Pearson on 32-69-4324Lnfafcd (U) [Mass/Vol]NegativeNegativeMercer County Community HospitalLactate [Moles/volume] in Serum or PlasmaOrdered By: Serafin Pearson on 82-34-6417Ovtfnzf [Moles/Vol]1.3 mmol/L0.5-2.2FProMedica Defiance Regional HospitalLeukocytes [#/volume] corrected for nucleated erythrocytes in Blood by Automated counOrdered By: Serafin Pearson on 30-32-2414XCG corrected for nucl RBC Auto (Bld) [#/Vol]12.2 10*3/uL4.1-10.5FProMedica Defiance Regional Hospital Lymphocytes Auto (Bld) [#/Vol]Ordered By: Serafin Pearson on 37-52-7604Mtrgunkgfff (Bld) [#/Vol]5.1 10*3/uL1.00-4.8[facility] Lymphocytes/100 WBC Auto (Bld)Ordered By: Serafin Pearson on 09-10-2022 Lymphocytes/100 WBC (Bld)42.1 %.[facility] HospitalMCH Auto (RBC) [Entitic mass]Ordered By: Serafin Pearson on 76-58-1295GFO (RBC) [Entitic mass] 30.0 pg27.5-35.2FProMedica Defiance Regional HospitalMCHC Auto (RBC) [Mass/Vol] Ordered By: Serafin Pearson on 31-53-6369RNPZ (RBC) [Mass/Vol]31.8 g/dL32.5-35.6 [facility] HospitalMCV Auto (RBC) [Entitic vol]Ordered By: Serafin Pearson on 86-55-0230PJN (RBC) [Entitic vol]94.4 fL83.5-101[facility] HospitalMonocyte distribution width [Entitic volume] in Blood by Automated Ordered By: Serafin Pearson on 14-07-7185Zcxgtjdi distribution width Auto (Bld) [Entitic vol]19.06 %0.00-20.00[facility] HospitalMonocytes Auto (Bld) [#/Vol]Ordered By: Serafin Pearson on 13-75-6663Agghcvmah (Bld) [#/Vol]1.0 10*3/uL0.0-0.8[facility] HospitalMonocytes/100 WBC Auto (Bld) Ordered By: Serafin Pearson on 72-08-6702Gzaopathc/100 WBC (Bld)8.6 %.[facility] HospitalNeutrophils Auto (Bld) [#/Vol]Ordered By: Serafin Pearson on 34-23-7930Yrwryfshkhv (Bld) [#/Vol]5.5 10*3/uL1.8-7.7FProMedica Defiance Regional HospitalNeutrophils/100 WBC Auto (Bld)Ordered By: Serafin Pearson on 90-39-4935Ctocwmnkcem/100 WBC (Bld)45.4 %.[facility] Nitrite Test strip Ql (U)Ordered By: Serafin Pearson on 76-17-6034Dwjfizh Ql (U) NegativeNegativeMercer County Community HospitalNo Panel InformationOrdered By: Kevin Steinberg on 88-08-5585Ulp5: cleaned meterMercer County Community Hospital No Panel InformationOrdered By: Serafin Pearson on 68-87-8784Rhvd seen [LPF]0-8 [facility]12.6 s9.0-12.9[facility] 13.476 mL/MinMercer County Community Hospital19.50[facility] HospitalNucleated erythrocytes [Presence] in Blood by Automated countOrdered By: Serafin Pearson on 49-51-9587Gexvwlhsu RBC Auto Ql (Bld)0.1 /100{WBC}0-0.5 [facility] HospitalPlatelet mean volume Auto (Bld) [Entitic vol] Ordered By: Serafin Pearson on 52-61-2774Ayyxlfdz mean volume (Bld) [Entitic vol] 10.3 fL6.6-10.1FProMedica Defiance Regional HospitalPlatelet poor plasma international normalized ratio (INR) by coagulation assay (relatOrdered By: Serafin Pearson on 11-57-3240RZH Coag (PPP) [Relative time]1.1 {INR}[facility] HospitalPlatelets Auto (Bld) [#/Vol]Ordered By: Serafin Pearson on 68-59-4971Vmczwkhwu (Bld) [#/Vol]214 10*3/oJ770-118NfqcjfvqcMercer County Community HospitalPotassium [Moles/volume] in Serum or PlasmaOrdered By: Serafin Pearson on 42-61-3036Cdqrlyapv [Moles/Vol]5.2 mmol/L3.5-5.1FProMedica Defiance Regional HospitalProtein Auto test strip (U) [Mass/Vol]Ordered By: Serafin Pearson on 06-70-5835Fbcylax (U) [Mass/Vol]300 mg/dLNegativeMercer County Community HospitalRBC Auto (Bld) [#/Vol]Ordered By: Serafin Pearson on 49-88-0680XKM (Bld) [#/Vol]3.17 10*6/uL3.90-5.60[facility]ville Hospitalerum or plasma anion gap determinationOrdered By: Serafin Pearson on 59-16-2719Apjec gap [Moles/Vol]12.5 mmol/L6.0-15.0[facility]ville Hospitalodium [Moles/volume] in Serum or PlasmaOrdered By: Serafin Pearson on 03-35-5319Nhinsp [Moles/Vol]134 mmol/O794-664FtycdiqerBarnesville Hospitalpecific gravity Auto test strip (U) [Rel density]Ordered By: Serafin Pearson on 03-40-0077Iasesslk gravity (U) [Rel density]1.0121.001-1.030[facility] Squamous epithelial cells detection in urine sediment by light microscopyOrdered By: Serafin Pearson on 14-07-0693Ydikxhegsd cells.squamous LM Ql (Urine sed)None seen [HPF]0-2FProMedica Defiance Regional HospitalUrea nitrogen [Mass/volume] in Serum or PlasmaOrdered By: Serafin Pearson on 13-61-4284Apqc nitrogen [Mass/Vol]41 mg/dL7-25[facility] HospitalUrine bacteria detection by automated methodOrdered By: Serafin Pearson on 10-47-2981Gllgddna Auto Ql (U)None seenNone SeenMercer County Community HospitalUrine clarity by refractometry automated Ordered By: Searfin Pearson on 44-44-2499Xemcwvq Refractometry automated (U)Clear ClearMercer County Community HospitalUrine glucose measurement by automated test strip (mass/volume)Ordered By: Serafin Pearson on 05-56-7621Rsgzqpe Auto test strip (U) [Mass/Vol]Normal mg/dLNormParkwood HospitalUrine hemoglobin detection by automated test stripOrdered By: Serafin Pearson on 28-60-2790Asyommwphr Auto test strip Ql (U)TraceNegativeMercer County Community HospitalUrine leukocyte esterase detection by automated test stripOrdered By: Serafin Pearson on 71-69-8168Nglzmjiax esterase Auto test strip Ql (U)Negative NegativeMercer County Community HospitalUrobilinogen Auto test strip (U) [Mass/Vol]Ordered By: Serafin Pearson on 45-55-4370Zdzzjtgabdgz (U) [Mass/Vol] Normal mg/dLNormParkwood HospitalWBC Auto (Bld) [#/Vol]Ordered By: Serafin Pearson on 12-89-7201BXT (Bld) [#/Vol]12.2 10*3/uL4.1-10.5FProMedica Defiance Regional HospitalpH Auto test strip (U)Ordered By: Serafin Pearson on 90-58-8695hQ (U)6.0 [pH]5.0-9.0[facility] HospitalAlanine aminotransferase [Enzymatic activity/volume] in Serum or PlasmaOrdered By: Oblauradamela Gilesomar on 47-43-9188JZI [Catalytic activity/Vol]7 U/L7-52[facility] HospitalAlbumin [Mass/volume] in Serum or Plasma by Bromocresol green (BCG) dye binding methoOrdered By: Obaydah Daromar on 30-22-0347Safpngr BCG dye [Mass/Vol]2.6 g/dL3.5-5.7FProMedica Defiance Regional HospitalAlkaline phosphatase [Enzymatic activity/volume] in Serum or PlasmaOrdered By: Obaydah Daromar on 43-27-3931FVL [Catalytic activity/Vol]93 U/J11-150JvbjdbetbMercer County Community HospitalAspartate aminotransferase [Enzymatic activity/volume] in Serum or PlasmaOrdered By: Obaydah Daromar on 51-57-5858WAV [Catalytic activity/Vol]13 U/C70-30QprrtrnwvMercer County Community HospitalBasophils Auto (Bld) [#/Vol]Ordered By: Isamar Mar on 85-53-9808Islqtpbmz (Bld) [#/Vol]0.1 10*3/uL0.0-0.2FProMedica Defiance Regional HospitalBasophils/100 WBC Auto (Bld)Ordered By: Isamar Mar on 68-98-5519Akxrvfegh/100 WBC (Bld)0.7 %.[facility] Bilirubin.total [Mass/volume] in Serum or PlasmaOrdered By: Oblauradah Daromar on 52-32-4308Ymdoirdwi [Mass/Vol]0.3 mg/dL0.3-1.0[facility] Calcium [Mass/volume] in Serum or PlasmaOrdered By: Obaydah Daromar on 94-97-9099Uhbrizo [Mass/Vol]7.4 mg/dL8.6-10.3FProMedica Defiance Regional Hospital Carbon dioxide, total [Moles/volume] in Serum or PlasmaOrdered By: Oblauradah Daromar on 23-72-1099JO1 [Moles/Vol]21.0 mmol/L21.0-31.0[facility] HospitalChloride [Moles/volume] in Serum or PlasmaOrdered By: Julian Jones on 13-09-2891Vtgvpvwt [Moles/Vol]111 mmol/B48-831VppruaymyMercer County Community HospitalComplete Blood Count Auto Diffon 57-98-3390Qcfmlkyqm (Bld) [#/Vol] 0.1 10*3/uLNormal0.0-0.2FProMedica Defiance Regional HospitalComment on above:Result Comment: PERFORMED BY:[address] [place], [place] [phone] MEDICAL DIRECTORCHRISTO PINO M.D.Performed By: #### CBC, FE and TIBC, CMP, [id number], OKSANA ####[place] [id number] USABasophils/100 WBC (Bld)0.7 %Normal. [facility] HospitalComment on above:Performed By: #### CBC, FE and TIBC, CMP, [id number], OKSANA ####[address] [address] USAEosinophils (Bld) [#/Vol]0.4 10*3/uLNormal0.0-0.45 [facility] HospitalComment on above:Performed By: #### CBC, FE and TIBC, CMP, [id number], OKSANA ####[address] [address] USAEosinophils/100 WBC (Bld)3.5 %Normal.[facility] HospitalComment on above:Performed By: #### CBC, FE and TIBC, CMP, [id number], OKSANA ####[address] [address] USAErythrocyte distribution width (RBC) [Ratio]16.8 %High12.0-14.8 [facility] HospitalComment on above:Performed By: #### CBC, FE and TIBC, CMP, [id number], OKSANA ####[address] [address] USAHematocrit (Bld) [Volume fraction]27.1 %Low38.8-50.0 [facility] HospitalComment on above:Performed By: #### CBC, FE and TIBC, CMP, [id number], OKSANA ####[address] [address] USAHemoglobin (Bld) [Mass/Vol]8.7 g/dLLow13.0-17.0 [facility] HospitalComment on above:Performed By: #### CBC, FE and TIBC, CMP, [id number], OKSANA ####[address] [address] USALymphocytes (Bld) [#/Vol]3.9 10*3/uLNormal1.00-4.8 [facility] HospitalComment on above:Performed By: #### CBC, FE and TIBC, CMP, [id number], OKSANA ####[address] [address] USALymphocytes/100 WBC (Bld)32.8 %Normal.[facility] HospitalComment on above:Performed By: #### CBC, FE and TIBC, CMP, [id number], OKSANA ####[address] [address] [facility] [place] ([place]BC[place] [Entitic mass]29.7 fdKacjkl80.5-35.2FProMedica Defiance Regional HospitalComment on above:Performed By: #### CBC, FE and TIBC, CMP, [id number], OKSANA ####[address] [address] [facility] [place] (RBC) [Entitic vol]92.1 kPIlbdhb58.5-101[facility] HospitalComment on above:Performed By: #### CBC, FE and TIBC, CMP, [id number], OKSANA ####[address] [address] USAMean Corpuscular HGB Conc32.2 g/dLLow32.5-35.6FProMedica Defiance Regional Hospital Comment on above:Performed By: #### CBC, FE and TIBC, CMP, [id number], OKSANA ####[place] [address] [place] Monocytes (Bld) [#/Vol]1.0 10*3/uLHigh0.0-0.8[facility] Comment on above:Performed By: #### CBC, FE and TIBC, CMP, [id number], OKSANA ####[place] [id number] [place] Monocytes/100 WBC (Bld)8.4 %Normal.[facility] HospitalComment on above:Performed By: #### CBC, FE and TIBC, CMP, [id number], OKSANA ####[place] [address] USANeutrophils (Bld) [#/Vol]6.5 10*3/uLNormal1.8-7.7FProMedica Defiance Regional HospitalComment on above:Performed By: #### CBC, FE and TIBC, CMP, [id number], OKSANA ####[place] [address] USANeutrophils/100 WBC (Bld)54.6 %Normal.[facility] HospitalComment on above:Performed By: #### CBC, FE and TIBC, CMP, [id number], OKSANA ####[place] [address] USANRBC%0.1 /100{WBC}Normal0-0.5FProMedica Defiance Regional HospitalComment on above:Performed By: #### CBC, FE and TIBC, CMP, [id number], OKSANA ####[place] [address] USAPlatelet mean volume (Bld) [Entitic vol]9.4 fLNormal6.6-10.1 [facility] HospitalComment on above:Performed By: #### CBC, FE and TIBC, CMP, [id number], OKSANA ####[address] [address] USAPlatelets (Bld) [#/Vol]244 10*3/pCSszmxc790-194 [facility] HospitalComment on above:Performed By: #### CBC, FE and TIBC, CMP, [id number], OKSANA ####[address] [address] USARBC (Bld) [#/Vol]2.94 10*6/uLLow3.90-5.60[facility] HospitalComment on above:Performed By: #### CBC, FE and TIBC, CMP, [id number], OKSANA ####[address] [address] USAWBC (Bld) [#/Vol]11.9 10*3/uLHigh4.1-10.5FProMedica Defiance Regional HospitalComment on above:Performed By: #### CBC, FE and TIBC, CMP, [id number], OKSANA ####[place] [id number] [place] Comprehensive Metabolic Panelon 66-27-6252Camejpa [Mass/Vol]2.6 g/dLLow3.5-5.7 [facility] HospitalCombeaumont hospital on above:Performed By: #### CBC, FE and TIBC, CMP, [id number], OKSANA ####[address] [address] USAAlbumin/Globulin [Mass ratio]0.5 {ratio}Normal [facility] HospitalComment on above:Performed By: #### CBC, FE and TIBC, CMP, [id number], OKSANA ####[address] [address] USAALP [Catalytic activity/Vol]93 U/MZycajj13-979 [facility] HospitalComment on above:Performed By: #### CBC, FE and TIBC, CMP, [id number], OKSANA ####[address] [address] USAALT [Catalytic activity/Vol]7 U/LNormal7-52[facility] HospitalComment on above:Performed By: #### CBC, FE and TIBC, CMP, [id number], OKSANA ####[address] [address] USAAnion gap [Moles/Vol]12.5 mmol/LNormal6.0-15.0[facility] HospitalComment on above:Performed By: #### CBC, FE and TIBC, CMP, [id number], OKSANA ####[address] [address] USAAST [Catalytic activity/Vol]13 U/KDtstou56-66MzqwuqwduMercer County Community HospitalComment on above:Performed By: #### CBC, FE and TIBC, CMP, [id number], KOSANA ####[address] [address] [place] Bilirubin [Mass/Vol]0.3 mg/dLNormal0.3-1.0[facility] Comment on above:Performed By: #### CBC, FE and TIBC, CMP, [id number], OKSANA ####[address] [address] USACalcium [Mass/Vol]7.4 mg/dLLow8.6-10.3FProMedica Defiance Regional HospitalComment on above:Performed By: #### CBC, FE and TIBC, CMP, [id number], OKSANA ####[address] [address] USAChloride [Moles/Vol] 111 mmol/FFeox41-765VjembbafoMercer County Community HospitalComment on above:Performed By: #### CBC, FE and TIBC, CMP, [id number], OKSANA ####[address] [address] USACO2 [Moles/Vol]21.0 mmol/LNormal 21.0-31.0[facility] HospitalComment on above:Performed By: #### CBC, FE and TIBC, CMP, [id number], OKSANA ####[address] [address] USACreatinine [Mass/Vol]4.44 mg/dLHigh0.70-1.30 [facility] HospitalComment on above:Performed By: #### CBC, FE and TIBC, CMP, [id number], OKSANA ####[address] [place] [address] USACreatinine Clr Calc Vdlpwtyr94.02NoProvidence HospitalComment on above:Performed By: #### CBC, FE and TIBC, CMP, [id number], OKSANA ####[address] [place] [address] USAGFR/1.73 sq M.predicted MDRD (S/P/Bld) [Vol rate/Area]13.367 mL/min/{1.73_m2}Premier HealthComment on above: Performed By: #### CBC, FE and TIBC, CMP, [id number], OKSANA ####[place] [address] USAGlobulin (S) [Mass/Vol]5.3 g/dLPremier HealthComment on above:Performed By: #### CBC, FE and TIBC, CMP, [id number], OKSANA ####[place] [address] USAGlucose [Mass/Vol]110 mg/qAChhp03-910PmjfiowfeMercer County Community HospitalComment on above:Result Comment: Random Glucose Reference Range is dependent on time and content of last meal. Glucose of more than 200 mg/dL in a nonstressed, ambulatory subject supports the diagnosis of Diabetes Mellitus. ADA recommended reference rangePerformed By: #### CBC, FE and TIBC, CMP, [id number], OKSANA ####[place] [address] USAPotassium [Moles/Vol]4.5 mmol/LNormal3.5-5.1 [facility] HospitalComment on above:Performed By: #### CBC, FE and TIBC, CMP, [id number], OKSANA ####[address] [place] [address] USAProtein [Mass/Vol]7.9 g/dLNormal6.4-8.9[facility] HospitalComment on above:Performed By: #### CBC, FE and TIBC, CMP, [id number], OKSANA ####[address] [place] [address] USASodium [Moles/Vol]140 mmol/HWorkyi001-643EqcozaygdMercer County Community HospitalComment on above:Performed By: #### CBC, FE and TIBC, CMP, [id number], OKSANA ####[address] [place] [address] USAUrea nitrogen [Mass/Vol]38 mg/dLHigh7-25[facility] HospitalComment on above:Performed By: #### CBC, FE and TIBC, CMP, [id number], OKSANA ####[address] [address] USACreatinine [Mass/volume] in Serum or PlasmaOrdered By: Julian Jones on 08-31-2022 Creatinine [Mass/Vol]4.44 mg/dL0.70-1.30[facility] HospitalECH echo transthoracicon 44-34-4028LXD echo transthoracicNormalMercer County Community HospitalEosinophils Auto (Bld) [#/Vol]Ordered By: Isamar Mar on 83-83-4951Vvjfniwnlzr (Bld) [#/Vol]0.4 10*3/uL0.0-0.45[facility] HospitalEosinophils/100 WBC Auto (Bld)Ordered By: Isamar Mar on 08-31-2022 Eosinophils/100 WBC (Bld)3.5 %.[facility] HospitalErythrocyte distribution width Auto (RBC) [Ratio]Ordered By: Isamar Mar on 08-31-2022 Erythrocyte distribution width (RBC) [Ratio]16.8 %12.0-14.8[facility] HospitalFerritinon 24-90-1247Muyzippz [Mass/Vol]685.8 ng/tFYvzj04.9-336.2 [facility] HospitalComment on above:Performed By: #### CBC, FE and TIBC, CMP, [id number], OKSANA ####[facility] [place] [address] USAFerritin [Mass/volume] in Serum or PlasmaOrdered By: Yisel Andrade on 28-68-7372Bpqvjhkt [Mass/Vol]685.8 ng/mL23.9-336.2FProMedica Defiance Regional HospitalFolate [Mass/volume] in Serum or PlasmaOrdered By: Yisel Andrade on 93-21-8961Xjuqnq [Mass/Vol]32.0 ng/mL>5.9[facility] HospitalGlobulin Calc (S) [Mass/Vol]Ordered By: Julian Jones on 08-31-2022 Globulin (S) [Mass/Vol]5.3 g/dLMercer County Community HospitalGlucose [Mass/volume] in Serum or PlasmaOrdered By: Marybethdamela Gilesomar on 13-82-2847Nrojnrp [Mass/Vol]110 mg/kW13-630UarxyoffdMercer County Community HospitalHematocrit Auto (Bld) [Volume fraction]Ordered By: Isamar Mar on 67-92-9954Vtqjxcmiui (Bld) [Volume fraction]27.1 %38.8-50.0[facility] HospitalHemoglobin [Mass/volume] in BloodOrdered By: Isamar Mar on 50-67-1107Hxngqvjwrv (Bld) [Mass/Vol]8.7 g/dL13.0-17.0[facility] HospitalIron [Mass/volume] in Serum or PlasmaOrdered By: Yisel Andrade on 82-05-7288Fawd [Mass/Vol]67 ug/dL 50-212Mer[facility] Community HospitalIron and TIBC Profileon 08-31-2022% Iron Dxdsjwswle35.6 %Losclz33-12HzdsokttrMercer County Community HospitalComment on above: Performed By: #### CBC, FE and TIBC, CMP, [id number], OKSANA ####[facility] [place] [address] USAIron [Mass/Vol]67 ug/dLNormal 50-212[facility] HospitalComment on above:Performed By: #### CBC, FE and TIBC, CMP, [id number], OKSANA ####[facility] [address] [place] [address] USATotal Iron Binding Ydwrkvuw627 ug/iLHnh772-293 [facility] HospitalComment on above:Performed By: #### CBC, FE and TIBC, CMP, [id number], OKSANA ####[facility] [address] [place] [address] USATransferrin [Mass/Vol]118 mg/yQUpm756-693YquhqlxvxMercer County Community HospitalComment on above:Performed By: #### CBC, FE and TIBC, CMP, [id number], OKSANA ####[facility] [place] [address] USAIron binding capacity [Mass/volume] in Serum or PlasmaOrdered By: Yisel Andrade on 17-36-4994Lszr binding capacity [Mass/Vol]165 ug/yZ717-627 [facility] HospitalIron saturation [Mass Fraction] in Serum or PlasmaOrdered By: Yisel Andrade on 03-74-7049Dbfg saturation [Mass fraction]40.6 %20-50[facility] HospitalLeukocytes [#/volume] corrected for nucleated erythrocytes in Blood by Automated counOrdered By: Isamar Mar on 38-13-7373SNK corrected for nucl RBC Auto (Bld) [#/Vol]11.9 10*3/uL4.1-10.5 [facility] HospitalLymphocytes Auto (Bld) [#/Vol]Ordered By: Isamar Mar on 46-28-0953Xomfnbljrtl (Bld) [#/Vol]3.9 10*3/uL1.00-4.8 [facility] HospitalLymphocytes/100 WBC Auto (Bld)Ordered By: Isamar Mar on 78-77-1559Lngvybhikwg/100 WBC (Bld)32.8 %.[facility] HospitalMCH Auto (RBC) [Entitic mass]Ordered By: Isamar Mar on 27-69-8032VFE (RBC) [Entitic mass]29.7 pg27.5-35.2FProMedica Defiance Regional HospitalMCHC Auto (RBC) [Mass/Vol]Ordered By: Isamar Mar on 68-21-4831BUTH (RBC) [Mass/Vol]32.2 g/dL32.5-35.6FProMedica Defiance Regional HospitalMCV Auto (RBC) [Entitic vol]Ordered By: Isamar Mar on 09-41-8434GYU (RBC) [Entitic vol]92.1 fL83.5-101[facility] HospitalMonocytes Auto (Bld) [#/Vol] Ordered By: Isamar Mar on 04-08-8155Ytbdeuxmz (Bld) [#/Vol]1.0 10*3/uL 0.0-0.8[facility] HospitalMonocytes/100 WBC Auto (Bld)Ordered By: Isamar Mar on 05-03-5423Exwddmmzc/100 WBC (Bld)8.4 %.[facility] HospitalNeutrophils Auto (Bld) [#/Vol]Ordered By: Isamar Mar on 50-90-9831Zellakiinpj (Bld) [#/Vol]6.5 10*3/uL1.8-7.7FProMedica Defiance Regional HospitalNeutrophils/100 WBC Auto (Bld)Ordered By: Isamar Mar on 08-31-2022 Neutrophils/100 WBC (Bld)54.6 %.[facility] HospitalNo Panel InformationOrdered By: Julian Jones on 84-76-905627.367 mL/[facility]19.02[facility] HospitalNucleated erythrocytes [Presence] in Blood by Automated countOrdered By: Isamar Mar on 21-70-6593Iybnvhkma RBC Auto Ql (Bld)0.1 /100{WBC}0-0.5FProMedica Defiance Regional HospitalPlatelet mean volume Auto (Bld) [Entitic vol]Ordered By: Isamar Mar on 35-75-0071Qnrctzml mean volume (Bld) [Entitic vol]9.4 fL6.6-10.1 [facility] HospitalPlatelets Auto (Bld) [#/Vol]Ordered By: Isamar Mar on 22-52-2264Sqlagzdcv (Bld) [#/Vol]244 10*3/pO902-548WbnhawchaMercer County Community HospitalPotassium [Moles/volume] in Serum or PlasmaOrdered By: Obaydah Daromar on 49-77-9859Kyvuavlsl [Moles/Vol]4.5 mmol/L3.5-5.1FProMedica Defiance Regional HospitalProtein [Mass/volume] in Serum or PlasmaOrdered By: Obaydah Daromar on 36-16-4073Mxocxha [Mass/Vol]7.9 g/dL6.4-8.9[facility] HospitalRBC Auto (Bld) [#/Vol]Ordered By: Isamar Mar on 08-31-2022 RBC (Bld) [#/Vol]2.94 10*6/uL3.90-5.60[facility]ville Hospitalerum or plasma albumin/globulin mass ratioOrdered By: Obaydah Daromar on 08-31-2022 Albumin/Globulin [Mass ratio]0.5 {ratio}[facility] Hospitalerum or plasma anion gap determinationOrdered By: Obaydah Daromar on 02-59-0042Bgttz gap [Moles/Vol]12.5 mmol/L6.0-15.0[facility] Hospitalodium [Moles/volume] in Serum or PlasmaOrdered By: Obaydah Daromar on 61-16-7651Pjvwlj [Moles/Vol]140 mmol/E991-030GcadkniruMercer County Community HospitalTransferrin [Mass/volume] in Serum or PlasmaOrdered By: Yisel Andrade on 08-31-2022 Transferrin [Mass/Vol]118 mg/eG841-757HspxlfesbMercer County Community HospitalUrea nitrogen [Mass/volume] in Serum or PlasmaOrdered By: Obaydah Daromar on 87-41-2472Nmhb nitrogen [Mass/Vol]38 mg/dL7-25[facility] Vancomycin [Mass/volume] in Serum or PlasmaOrdered By: Isamar Mar on 40-79-3021Kvqomwgjyp [Mass/Vol]13.8 ug/mL5.0-20.0[facility] HospitalVancomycin,Randomon 74-87-7944Lxbxplkyac,Onlmov14.8 ug/mLNormal5.0-20.0 [facility] HospitalComment on above:Order Comment: Date of last dose?: [id number] Time of last dose?: 1651Result Comment: Last dose: -PERFORMED BY:[address] [address] [place], [place] [phone] MEDICAL DIRECTORCHRISTO PINO M.D.Performed By: #### VANCR ####[address] [address] [facility] Vit. B12/Folate Profileon 86-21-8218Ljhrjxckh (Vitamin B12) [Mass/Vol]2487 pg/mL Sfpu427-768CwuiftdymMercer County Community HospitalComment on above:Performed By: #### CBC, FE and TIBC, CMP, [id number], OKSANA ####[address] [address] GLUOlhknd21.0 ng/mLNormal>5.9Mer[facility] County Community HospitalComment on above:Result Comment: Folate reference range: >5.9 ng/ml The WHO technical consultation on folate and vitamin b12 deficiencies has determined that folate concentrations less than 4 ng/ml are considered d eficient.PERFORMED BY:[address] [address] [address] [place], [place] [id number] [employer]ICAL M[employer] PINO M.D.Performed By: #### CBC, FE and TIBC, CMP, [id number], OKSANA ####[address] [address] USAVitamin B12 ser/plasOrdered By: Yisel Andrade on 15-42-3304Vldcrcpwm (Vitamin B12) [Mass/Vol]2487 pg/tT427-114 [facility] HospitalWBC Auto (Bld) [#/Vol]Ordered By: Isamar Mar on 49-10-8597JIH (Bld) [#/Vol]11.9 10*3/uL4.1-10.5FProMedica Defiance Regional HospitalBacterial blood cultureOrdered By: Landon Grullon on 91-72-6617Girfwjer identified Cx Nom (Bld)NO GROWTH 5 DAYSMercer County Community HospitalBasic Metabolic Panelon 23-79-5020Cjxot gap [Moles/Vol]12.3 mmol/L Normal6.0-15.0[facility] Community HospitalComment on above:Performed By: #### CBC, BMP ####[address] [place] [address] USACalcium [Mass/Vol]7.6 mg/dLLow8.6-10.3FProMedica Defiance Regional Hospital Comment on above:Performed By: #### CBC, BMP ####[address] [place] [address] USAChloride [Moles/Vol]109 mmol/LHigh 98-107Mer[facility] County Community HospitalComment on above:Performed By: #### CBC, BMP ####[address] [address] USACO2 [Moles/Vol]20.3 mmol/LLow21.0-31.0Mer[facility] County Community HospitalComment on above:Performed By: #### CBC, BMP ####[address] [place] [address] USACreatinine [Mass/Vol]4.71 mg/dLHigh0.70-1.30 [facility] HospitalComment on above:Performed By: #### CBC, BMP ####[address] [place] [address] [place] Creatinine Clr Calc Jwtjytmm25.48NormalMercer County Community HospitalComment on above:Result Comment: PERFORMED BY:[address] [place], [place] [phone] MEDICAL DIRECTORCHRISTO PINO M.D.Performed By: #### CBC, BMP ####[address] [place] [address] USAGFR/1.73 sq M.predicted MDRD (S/P/Bld) [Vol rate/Area]12.454 mL/min/{1.73_m2}Premier HealthComment on above:Performed By: #### CBC, BMP ####[address] [place] [address] USAGlucose [Mass/Vol]141 mg/kJPpwx48-143GhhkrgltcMercer County Community HospitalComment on above:Result Comment: Random Glucose Reference Range is dependent on time and content of last meal. Glucose of more than 200 mg/dL in a nonstressed, ambulatory subject supports the diagnosis of Diabetes Mellitus. ADA recommended reference rangePerformed By: #### CBC, BMP ####[address] [place] [address] [place] Potassium [Moles/Vol]4.6 mmol/LNormal3.5-5.1FProMedica Defiance Regional Hospital Comment on above:Performed By: #### CBC, BMP ####[id number] USASodium [Moles/Vol]137 mmol/LNormal 136-145[facility] HospitalComment on above:Performed By: #### CBC, BMP ####[address] [address] [place] Urea nitrogen [Mass/Vol]39 mg/dLHigh7-25[facility] HospitalComment on above:Performed By: #### CBC, BMP ####[address] [address] USABlood Cultureon 77-86-0039Qnqxwdwx identified Cx Nom (Bld)No Growth 1 Day PERFORMED BY: [facility] [id number] PATHOLOGIST HELP DESK SUPPORT SPECIALIST CHRISTO PINO M.D.Premier HealthComment on above: Performed By: #### CUBLD ####[address] USAComplete Blood Count Auto Diffon 32-22-5472Avtpqqqqq (Bld) [#/Vol]0.1 10*3/uLNormal0.0-0.2FProMedica Defiance Regional HospitalComment on above:Result Comment: PERFORMED BY:[address] [place], [place] [phone] MEDICAL DIRECTORCHRISTO PINO M.D.Performed By: #### CBC, BMP ####[address] USABasophils/100 WBC (Bld)0.5 %Normal.[facility] HospitalComment on above:Performed By: #### CBC, BMP ####[address] [facility] Eosinophils (Bld) [#/Vol]0.3 10*3/uLNormal0.0-0.45[facility] HospitalComment on above:Performed By: #### CBC, BMP ####[address] USAEosinophils/100 WBC (Bld)2.5 % Normal.[facility] County Community HospitalComment on above:Performed By: #### CBC, BMP ####[address] [facility] Erythrocyte distribution width (RBC) [Ratio]16.5 %High12.0-14.8[facility] HospitalComment on above:Performed By: #### CBC, BMP ####[address] [facility] Hematocrit (Bld) [Volume fraction]28.1 %Low38.8-50.0[facility] HospitalComment on above:Performed By: #### CBC, BMP ####[address] USAHemoglobin (Bld) [Mass/Vol]9.0 g/dLLow13.0-17.0[facility] HospitalComment on above:Performed By: #### CBC, BMP ####[place] [address] USALymphocytes (Bld) [#/Vol]3.6 10*3/uLNormal1.00-4.8[facility] HospitalComment on above:Performed By: #### CBC, BMP ####[address] [place] [address] USALymphocytes/100 WBC (Bld)27.7 %Normal.[facility] HospitalComment on above:Performed By: #### CBC, BMP ####[address] [place] [address] [facility] ([facility]BC) [Entitic mass]30.2 kwTkwtvy53.5-35.2FProMedica Defiance Regional HospitalComment on above:Performed By: #### CBC, BMP ####[address] [address] [facility] (RBC) [Entitic vol]94.2 qZPepkor11.5-101Mer[facility] Community HospitalComment on above: Performed By: #### CBC, BMP ####[address] [address] USAMean Corpuscular HGB Conc32.1 g/dLLow32.5-35.6 [facility] HospitalComment on above:Performed By: #### CBC, BMP ####[address] [address] [place] Monocytes (Bld) [#/Vol]1.1 10*3/uLHigh0.0-0.8[facility] Comment on above:Performed By: #### CBC, BMP ####[address] [address] USAMonocytes/100 WBC (Bld)8.2 %Normal. [facility] County Community HospitalComment on above:Performed By: #### CBC, BMP ####[address] [address] [place] Neutrophils (Bld) [#/Vol]7.9 10*3/uLHigh1.8-7.7FProMedica Defiance Regional Hospital Comment on above:Performed By: #### CBC, BMP ####[address] [address] USANeutrophils/100 WBC (Bld)61.1 %Normal. [facility] HospitalComment on above:Performed By: #### CBC, BMP ####[address] [place] [address] USANRBC% 0.2 /100{WBC}Normal0-0.5FProMedica Defiance Regional HospitalComment on above: Performed By: #### CBC, BMP ####[address] [address] USAPlatelet mean volume (Bld) [Entitic vol]10.2 fLHigh 6.6-10.1FProMedica Defiance Regional HospitalComment on above:Performed By: #### CBC, BMP ####[address] [address] USAPlatelets (Bld) [#/Vol]257 10*3/dDBscblk684-720NfjtobkhoMercer County Community HospitalComment on above:Performed By: #### CBC, BMP ####[address] [address] USARBC (Bld) [#/Vol]2.98 10*6/uL Low3.90-5.60[facility] HospitalComment on above:Performed By: #### CBC, BMP ####[address] [address] USAWBC (Bld) [#/Vol]13.0 10*3/uLHigh4.1-10.5FProMedica Defiance Regional Hospital Comment on above:Performed By: #### CBC, BMP ####[address] [address] USAGlucose Glucometer (BldC) [Mass/Vol] Ordered By: Julian Jones on 10-85-9372Ksvoqnx [Mass/Vol]320 mg/dLMercer County Community HospitalGlucose Poct Glucometerson 33-25-4281Vygdgbg2Fie4: Cleaned MeterNormalMercer County Community HospitalComment on above:Result Comment: PERFORMED BY:[address] [place], [place] [phone] MEDICAL DIRECTORCHRISTO PINO M.D.Performed By: #### GLULS ####Point of Care testing,Glucose [Mass/Vol]320 mg/dLPremier HealthComment on above:Result Comment: Random Glucose Reference Range is dependent on time and content of last meal. Glucose of more than 200 mg/dL in a nonstressed, ambulatory subject supports the diagnosis of Diabetes Mellitus.Performed By: #### GLULS ####Point of Care testing,Hjiensw8Dww7: Cleaned MeterPremier HealthComment on above:Result Comment: PERFORMED BY:[address] [address] [place], [place] [phone] MEDICAL DIRECTORCHRISTO PINO M.D.Performed By: #### GLULS ####Point of Care testing,Glucose [Mass/Vol]167 mg/dLPremier HealthComment on above:Result Comment: Random Glucose Reference Range is dependent on time and content of last meal. Glucose of more than 200 mg/dL in a nonstressed, ambulatory subject supports the diagnosis of Diabetes Mellitus.Performed By: #### GLULS ####Point of Care testing,Nuirqwa2Jjo4: Cleaned [facility]rington HospitalComment on above:Result Comment: PERFORMED BY:[address] [address] INFANTEJeanetteMIGUELANGEL, [place] [phone] MEDICAL DIRECTORCHRISTO PINO M.D.Performed By: #### GLULS ####Point of Care testing,Glucose [Mass/Vol]208 mg/dLPremier HealthComment on above:Result Comment: Random Glucose Reference Range is dependent on time and content of last meal. Glucose of more than 200 mg/dL in a nonstressed, ambulatory subject supports the diagnosis of Diabetes Mellitus.Performed By: #### GLULS ####Point of Care testing,MR foot RT wo conon 40-97-8251EL foot RT wo [facility] HospitalMR lower leg RT wo conon 16-71-1101CY lower leg RT wo [facility] HospitalNo Panel InformationOrdered By: Julian Jones on 80-36-2740Wug7: cleaned [facility] HospitalUS renal BIon 07-75-6916WW renal BINormal [facility] HospitalActivated partial thromboplastin time (aPTT) in platelet poor plasma by coagulation aOrdered By: Iris Dwyer on 08-29-2022 aPTT Coag (PPP) [Time]28.0 s25.1-36.5FProMedica Defiance Regional HospitalAutomated erythrocytes count in urine sediment (number/area)Ordered By: Landon Grullon on 85-42-6451JXW Auto (Urine sed) [#/Area]3-4 [HPF]0-4FProMedica Defiance Regional HospitalAutomated leukocytes count in urine sediment (number/area)Ordered By: Landon Grullon on 78-43-5733BMX Auto (Urine sed) [#/Area]3-4 [HPF]0-4FProMedica Defiance Regional HospitalBasic Metabolic Panelon 04-75-4054Xcnqi gap [Moles/Vol]13.0 mmol/LNormal6.0-15.0[facility] HospitalComment on above:Performed By: #### BMP, LACTIC, CBC ####[facility] [address] [facility], [place] USACalcium [Mass/Vol]7.8 mg/dLLow8.6-10.3FProMedica Defiance Regional HospitalComment on above:Performed By: #### BMP, LACTIC, CBC ####[facility] [address] [facility], [place] USAChloride [Moles/Vol]105 mmol/KYumxoy75-578SpelyocchMercer County Community HospitalComment on above:Performed By: #### BMP, LACTIC, CBC ####[facility] R[address] [facility], [place] USACO2 [Moles/Vol]20.4 mmol/LLow21.0-31.0Mer[facility] Community HospitalComment on above:Performed By: #### BMP, LACTIC, CBC ####[facility] Uaz[address] [facility], HQ[address] USACreatinine [Mass/Vol]5.00 mg/dLHigh0.70-1.30 [facility] HospitalComment on above:Performed By: #### BMP LACTIC, CBC ####[address] [place], [place] USACreatinine Clr Calc Gpvjsovg20.44NormalMercer County Community Hospital Comment on above:Result Comment: PERFORMED BY:[address] [place], [place] [phone] MEDICAL DIRECTORCHRISTO PINO M.D.Performed By: #### ANNEMARIE LACTIC, CBC ####[address] USAGFR/1.73 sq M.predicted MDRD (S/P/Bld) [Vol rate/Area]11.592 mL/min/{1.73_m2}Premier HealthComment on above:Performed By: #### ANNEMARIE LACTIC, CBC ####[address] USAGlucose [Mass/Vol]165 mg/vVCjdc49-107PytzxgdgrMercer County Community HospitalComment on above: Result Comment: Random Glucose Reference Range is dependent on time and content of last meal. Glucose of more than 200 mg/dL in a nonstressed, ambulatory subject supports the diagnosis of Diabetes Mellitus. ADA recommended reference rangePerformed By: #### ANNEMARIE LACTIC, CBC ####[address] [id number] USAPotassium [Moles/Vol]4.4 mmol/LNormal3.5-5.1 [facility] HospitalComment on above:Result Comment: Hemolysis is present at a level that could interfere with the result.Performed By: #### BMP, LACTIC, CBC ####[address] USASodium [Moles/Vol]134 mmol/HNdp213-949QghkcgtrzMercer County Community Hospital Comment on above:Performed By: #### BMP, LACTIC, CBC ####[address] USAUrea nitrogen [Mass/Vol]37 mg/dLHigh7-25Mer[facility] County Community HospitalComment on above:Performed By: #### BMP, LACTIC, CBC ####[address] USABilirubin Test strip Ql (U)Ordered By: Landon Grullon on 42-39-0922Tpcqdvmic Ql (U)NegativeNegativeMercer County Community HospitalColor Auto (U)Ordered By: Landon Grullon on 51-73-9645Ffoej (U)YellowYellowMercer County Community HospitalComplete Blood Count Auto Diffon 31-67-1569Uspqbskzp (Bld) [#/Vol]0.1 10*3/uLNormal0.0-0.2FProMedica Defiance Regional HospitalComment on above:Result Comment: PERFORMED BY:[address] [place], [place] [phone] MEDICAL DIRECTORCHRISTO PINO M.D.Performed By: #### BMP, LACTIC, CBC ####[address] AX[address] USABasophils/100 WBC (Bld)0.6 %Normal.Mer[facility] County Community HospitalComment on above:Performed By: #### BMP, LACTIC, CBC ####[address] PO[address]43 USAEosinophils (Bld) [#/Vol]0.4 10*3/uLNormal0.0-0.45 [facility] HospitalComment on above:Performed By: #### BMP, LACTIC, CBC ####[address], [place] USAEosinophils/100 WBC (Bld)3.1 %Normal.[facility] Comment on above:Performed By: #### BMP, LACTIC, CBC ####[address] [address] USAErythrocyte distribution width (RBC) [Ratio]16.8 %High12.0-14.8Mer[facility] County Community HospitalComment on above:Performed By: #### BMP, LACTIC, CBC ####[address] [address] USAHematocrit (Bld) [Volume fraction]30.1 %Low 38.8-50.0Mer[facility] County Community HospitalComment on above:Performed By: #### BMP, LACTIC, CBC ####[address] [address] USAHemoglobin (Bld) [Mass/Vol]9.8 g/dLLow13.0-17.0Mer[facility] Community HospitalComment on above:Performed By: #### BMP, LACTIC, CBC ####[address] USALymphocytes (Bld) [#/Vol]3.9 10*3/uLNormal1.00-4.8[facility] HospitalComment on above:Performed By: #### BMP, LACTIC, CBC ####[address] USALymphocytes/100 WBC (Bld)31.4 %Normal. [facility] Community HospitalComment on above:Performed By: #### BMP, LACTIC, CBC ####[address] [facility]ENTERM[facility] (RBC) [Entitic mass]30.4 zgEmdlmy43.5-35.2FProMedica Defiance Regional HospitalComment on above:Performed By: #### BMP, LACTIC, CBC ####[address] BZ[address] [facility] (RBC) [Entitic vol]93.2 uFHxepac56.5-101Mer[facility] County Community HospitalComment on above: Performed By: #### BMP, LACTIC, CBC ####[address] USAMean Corpuscular HGB Conc32.6 g/mVBctqsi18.5-35.6 [facility] HospitalComment on above:Performed By: #### BMP, LACTIC, CBC ####[address] [place], [place] USAMonocytes (Bld) [#/Vol]1.1 10*3/uLHigh0.0-0.8[facility] HospitalCombeaumont hospital on above:Performed By: #### BMP, LACTIC, CBC ####[address] [facility], [place] USAMonocytes/100 WBC (Bld)19.10 %Normal0.00-20.00[facility] Community HospitalCombeaumont hospital on above: Performed By: #### BMP, LACTIC, CBC ####[address], [place] USAMonocytes/100 WBC (Bld)8.8 %Normal.[facility] Community HospitalCombeaumont hospital on above:Performed By: #### BMP, LACTIC, CBC ####[address], [address] [place] Neutrophils (Bld) [#/Vol]7.0 10*3/uLNormal1.8-7.7FProMedica Defiance Regional HospitalCombeaumont hospital on above:Performed By: #### BMP, LACTIC, CBC ####[address], [place] USANeutrophils/100 WBC (Bld)56.1 %Normal.[facility] Community HospitalCombeaumont hospital on above:Performed By: #### BMP, LACTIC, CBC ####[address], [address] USANRBC%0.0 /100{WBC}Normal0-0.5FProMedica Defiance Regional HospitalCombeaumont hospital on above:Performed By: #### BMP, LACTIC, CBC ####[address], [place] USAPlatelet mean volume (Bld) [Entitic vol]10.3 fLHigh6.6-10.1FProMedica Defiance Regional HospitalCombeaumont hospital on above:Performed By: #### BMP, LACTIC, CBC ####[address], [place]Q[address] USAPlatelets (Bld) [#/Vol]291 10*3/uL Zyoyhe386-692ZxhrqzqjmMercer County Community HospitalComment on above:Performed By: #### BMP, LACTIC, CBC ####[facility] [facility], [place] USARBC (Bld) [#/Vol]3.23 10*6/uLLow3.90-5.60[facility] HospitalComment on above:Performed By: #### BMP, LACTIC, CBC ####[address] NG[address]74 USAWBC (Bld) [#/Vol]12.5 10*3/uLHigh4.1-10.5FProMedica Defiance Regional HospitalComment on above:Performed By: #### BMP, LACTIC, CBC ####[address] USADipstick and Microscopicon 08-29-2022 Appearance (U)ClearNormalClearMercer County Community HospitalComment on above: Order Comment: Name Collection Type:: Sanchez CatheterPerformed By: #### ADDONUAPLUS ####[address] [address] USABacteria,UrineNone SeenNormalNone [facility] Comment on above:Order Comment: Name Collection Type:: Sanchez CatheterPerformed By: #### ADDONUAPLUS ####[address] [place] [address] USABilirubin,UrineNegativeNormalNegativeMercer County Community HospitalComment on above:Order Comment: Name Collection Type:: Sanchez CatheterPerformed By: #### ADDONUAPLUS ####[address] [place] [address] USAColor (U)YellowNormalYellowMercer County Community HospitalComment on above:Order Comment: Name Collection Type:: Sanchez CatheterPerformed By: #### ADDONUAPLUS ####[address] [address] USAGlucose Ql (U)NormalNormalNormal [facility] HospitalComment on above:Order Comment: Name Collection Type:: Sanchez CatheterPerformed By: #### ADDONUAPLUS ####[address] [address] USAHyaline Casts,Urine0-8Normal 0-8[facility] HospitalComment on above:Order Comment: Name Collection Type:: Sanchez CatheterResult Comment: PERFORMED BY:[address] [place], [place] [phone] MEDICAL DIRECTORCHRISTO PINO M.D.Performed By: #### ADDONUAPLUS ####[address] [address] USAKetones Ql (U)NegativeNormal NegativeMercer County Community HospitalComment on above:Order Comment: Name Collection Type:: Sanchez CatheterPerformed By: #### ADDONUAPLUS ####[address] [address] USALeukocyte esterase Test strip Ql (U)NegativeNormalNegativeMercer County Community HospitalComment on above:Order Comment: Name Collection Type:: Sanchez CatheterPerformed By: #### ADDONUAPLUS ####[address] [address] USANitrite,UrineNegativeNormalNegSt. Rita's Hospital Comment on above:Order Comment: Name Collection Type:: Sanchez CatheterPerformed By: #### ADDONUAPLUS ####[address] [address] USAOccult Blood,UrineTraceHighNegativeMercer County Community HospitalComment on above:Order Comment: Name Collection Type:: Sanchez CatheterResult Comment: PERFORMED BY:[address] [address] BRITTNYEllenJeanetteMIGUELANGELAUMSVILLE, [place] [phone] MEDICAL MOOSE PINO M.D.Performed By: #### ADDONUAPLUS ####[address] [address] USApH (U)5.5 [pH]Normal5.0-9.0Mer[facility] Community HospitalComment on above:Order Comment: Name Collection Type:: Sanchez CatheterPerformed By: #### ADDONUAPLUS ####[address] [address] USAProtein (U) [Mass/Vol]300 mg/dLHighNegative [facility] HospitalComment on above:Order Comment: Name Collection Type:: Sanchez CatheterPerformed By: #### ADDONUAPLUS ####[address] [address] USARBC,Dixbi4-8Rzwnzd6-1QkkkohtlyProMedica Defiance Regional HospitalComment on above:Order Comment: Name Collection Type:: Sanchez CatheterPerformed By: #### ADDONUAPLUS ####[address] [address] USASpecificy [place],Urine1.015Normal 1.001-1.030[facility] HospitalComment on above:Order Comment: Name Collection Type:: Sanchez CatheterPerformed By: #### ADDONUAPLUS ####[address] [address] USASquamous Epithelial Cell,Ptayz0-1Sxwlig4-5GmmofqijsProMedica Defiance Regional HospitalComment on above:Order Comment: Name Collection Type:: Sanchez CatheterPerformed By: #### ADDONUAPLUS ####[address] [address] [place] Urobilinogen,UrineNormalNormalNormalMercer County Community HospitalComment on above:Order Comment: Name Collection Type:: Sanchez CatheterPerformed By: #### ADDONUAPLUS ####[address] [place] [address] USAWBC,Bdpus7-9Tnrnpr8-6RunyofikmProMedica Defiance Regional HospitalComment on above: Order Comment: Name Collection Type:: Sanchez CatheterPerformed By: #### ADDONUAPLUS ####[address] [address] USAGlucose Poct Glucometerson 73-93-7984Keydyrg [Mass/Vol]149 mg/dLNormal [facility] HospitalComment on above:Result Comment: Random Glucose Reference Range is dependent on time and content of last meal. Glucose of more than 200 mg/dL in a nonstressed, ambulatory subject supports the diagnosis of Diabetes Mellitus.PERFORMED BY:[address] LARKINMIGUELANGELAUMSV[place]LE, [place] [phone] MEDICAL DIRECTORCHRISTO PINO M.D. Performed By: #### GLULS ####Point of Care testing,Ilqcatr7Rph8: Cleaned Meter [facility]Com[facility]aum[facility] hospital on above:Result Comment: PERFORMED BY:[address] [address] YANESCALVIN GRAMAJOUSKYAUMSVILLE, [place] [phone] MEDICAL DIRECTORCHRISTO PINO M.D.Performed By: #### GLULS ####Point of Care testing,Glucose [Mass/Vol]200 mg/dLNoProvidence HospitalCombeaumont hospital on above:Result Comment: Random Glucose Reference Range is dependent on time and content of last meal. Glucose of more than 200 mg/dL in a nonstressed, ambulatory subject supports the diagnosis of Diabetes Mellitus.Performed By: #### GLULS ####Point of Care testing,Ketones Auto test strip (U) [Mass/Vol]Ordered By: Landon Grullon on 82-13-9392Bvuurvg (U) [Mass/Vol]NegativeNegativeMercer County Community HospitalLactate [Moles/volume] in Serum or PlasmaOrdered By: Iris Dwyer on 08-29-2022 Lactate [Moles/Vol]1.8 mmol/L0.5-2.2FProMedica Defiance Regional HospitalLactic Acid on 29-96-3673Ytyepna [Moles/Vol]1.8 mmol/LNormal0.5-2.2FProMedica Defiance Regional HospitalCombeaumont hospital on above:Result Comment: PERFORMED BY:[address] [address] [address]ANESCALV[address] GRAMAJOUSKYAUMSVILLE, [place] [phone] MEDICAL DIRECTORCHRISTO PINO M.D.Performed By: #### BMP, LACTIC, CBC ####[address] [place], [place] USAMonocyte distribution width [Entitic volume] in Blood by AutomatedOrdered By: Iris Dwyer on 79-16-7947Poukpczf distribution width Auto (Bld) [Entitic vol]19.10 %0.00-20.00 [facility] HospitalNitrite Test strip Ql (U)Ordered By: Landon Grullon on 73-42-9994Dqkvvei Ql (U)NegativeNegativeMercer County Community HospitalNo Panel InformationOrdered By: Landon Grullon on -8 [LPF] 0-8[facility] HospitalNo Panel InformationOrdered By: Iris Dwyer on 66-74-120353.7 s9.0-12.9[facility] Community HospitalPartial Thromboplastin Timeon 70-91-5064uNOH Coag (Bld) [Time]28.0 rIssdjr56.1-36.5 [facility] HospitalComment on above:Result Comment: PERFORMED BY:[facility] [place] [address] [place], [place] [phone] MEDICAL DIRECTORCHRISTO PINO M.D.Performed By: #### PT, PTT ####[facility] [place] [address] [place] Platelet poor plasma international normalized ratio (INR) by coagulation assay (relatOrdered By: Iris Dwyer on 29-63-0010MLA Coag (PPP) [Relative time]1.2 {INR}[facility] HospitalProtein Auto test strip (U) [Mass/Vol] Ordered By: Landon Grullon on 93-22-6173Zionqlw (U) [Mass/Vol]300 mg/dL NegativeMercer County Community HospitalProthrombin Time INRon 66-62-6216YGW Coag (PPP) [Relative time]1.2 {INR}NormalMercer County Community Hospital Comment on above:Result Comment: INR Therapeutic Range A) Pre- and Peroperative OAT started two weeks before surgery. NOT HIP SURGERY: 1.5 - 2.5 HIP SURGERY: 2 - 3 B) Primary and secondary prevention of venous THROMBOSIS: 2 - 3 C) Active venous thrombosis, pulmonary embolism and prevention of recurrent venous thromb osis: 2 - 3 D) Prevention of arterial thromboembolism including patients with mechanical heart valves: 3 - 4.5Performed By: #### PT, PTT ####[facility] [address] [place] [address] USAPT Coag (PPP) [Time] 13.7 sHigh9.0-12.9[facility] Community HospitalComment on above:Performed By: #### PT, PTT ####[facility] Tgc[address] [place] [address] USASpecific gravity Auto test strip (U) [Rel density]Ordered By: Landon Grullon on 09-65-3836Vtzjsbsh gravity (U) [Rel density]1.015 1.001-1.030Barnesville Hospitalquamous epithelial cells detection in urine sediment by light microscopyOrdered By: Landon Grullon on 00-26-8768Pgxddiorvg cells.squamous LM Ql (Urine sed)1-2 [HPF]0-2FProMedica Defiance Regional HospitalUrine bacteria detection by automated methodOrdered By: Landon Grullon on 90-26-2768Yrqfzgzs Auto Ql (U)None seenNone SeenMercer County Community HospitalUrine clarity by refractometry automatedOrdered By: Landon Grullon on 91-57-3391Udrcjlt Refractometry automated (U)ClearClear [facility] Community HospitalUrine glucose measurement by automated test strip (mass/volume)Ordered By: Landon Grullon on 35-55-5008Kixvxmd Auto test strip (U) [Mass/Vol]Normal mg/dLNormalMercer County Community Hospital Urine hemoglobin detection by automated test stripOrdered By: Landon Grullon on 79-49-1373Rsunblgsjo Auto test strip Ql (U)TraceNegSt. Rita's HospitalUrine leukocyte esterase detection by automated test stripOrdered By: Landon Grullon on 90-98-1467Ncfffnyom esterase Auto test strip Ql (U)NegativeNegSt. Rita's HospitalUrobilinogen Auto test strip (U) [Mass/Vol]Ordered By: Landon Grullon on 08-29-2022 Urobilinogen (U) [Mass/Vol]Normal mg/dLNormalMercer [facility] Vancomycin,Randomon 54-84-3819Ukmzokwrxk,Yfuyiz67.1 ug/mLNormal5.0-20.0[facility] Community HospitalComment on above:Order Comment: Date of last dose?: 20220827 Time of last dose?: 1400Result Comment: Last dose: -PERFORMED BY:[address] [place], [place] [phone] MEDICAL DIRECTORCHRISTO PINO M.D.Performed By: #### VANCR ####[facility] [address] [place] [address] [place] pH Auto test strip (U)Ordered By: Landon Grullon on 47-12-9416pR (U)5.5 [pH]5.0-9.0[facility] HospitalBacteria identified Cx Nom (Bld) Ordered By: Srinivas Aguilar on 06-26-2084Xewyfsuua blood cultureMethicillin Resis Staph AureusMercer County Community HospitalBacterial blood cultureOrdered By: Srinivas Aguilar on 33-68-8185Kytfnqff identified Cx Nom (Bld)NO GROWTH 5 DAYS [facility] HospitalBasic Metabolic Panelon 81-09-6518Rjlct gap [Moles/Vol]14.8 mmol/LNormal6.0-15.0[facility] HospitalComment on above:Performed By: #### SHREYA SHARPE, CBC ####[facility] [address] [place] [address] USACalcium [Mass/Vol]7.9 mg/dLLow8.6-10.3 [facility] HospitalComment on above:Performed By: #### SHREYA SHARPE, CBC ####[facility] [address] [place] [address] [place] Chloride [Moles/Vol]102 mmol/MQzwxhk39-401AegbahpxcMercer County Community Hospital Comment on above:Performed By: #### SHREYA SHARPE, CBC ####[facility] [address] [place] [address] USACO2 [Moles/Vol]22.3 mmol/L Ydbgsw88.0-31.0[facility] Community HospitalComment on above:Performed By: #### SHREYA SHARPE, CBC ####[facility] [place] [address] USACreatinine [Mass/Vol]4.95 mg/dLHigh0.70-1.30 [facility] HospitalComment on above:Performed By: #### SHREYA SHARPE, CBC ####[address] [place] [address] [place] Creatinine Clr Calc Mrlwfaxj50.55NormParkwood HospitalComment on above:Result Comment: PERFORMED BY:[address] [place], [place] [phone] MEDICAL DIRECTORCHRISTO PINO M.D.Performed By: #### SHREYA SHARPE, CBC ####[address] [place] [address] USAGFR/1.73 sq M.predicted MDRD (S/P/Bld) [Vol rate/Area]11.732 mL/min/{1.73_m2}Premier HealthComment on above:Performed By: #### SHREYA SHARPE, CBC ####[address] [place] [address] USAGlucose [Mass/Vol]202 mg/mBPxja79-298 [facility] HospitalComment on above:Result Comment: Random Glucose Reference Range is dependent on time and content of last meal. Glucose of more than 200 mg/dL in a nonstressed, ambulatory subject supports the diagnosis of Diabetes Mellitus. ADA recommended reference rangePerformed By: #### SHREYA SHARPE, CBC ####[facility] [place] [address] [place] Potassium [Moles/Vol]4.1 mmol/LNormal3.5-5.1FProMedica Defiance Regional Hospital Comment on above:Performed By: #### SHREYA SHARPE, CBC ####[address] [place] [address] USASodium [Moles/Vol]135 mmol/L Kqq001-912YesrbdigaMercer County Community HospitalComment on above:Performed By: #### SHREYA SHARPE, CBC ####[address] [place] [address] USAUrea nitrogen [Mass/Vol]39 mg/dLHigh7-25Mer[facility] Community HospitalComment on above:Performed By: #### SHREYA SHARPE, CBC ####[address] USABasophils Auto (Bld) [#/Vol] Ordered By: Srinivas Aguilar on 97-24-2756Bqfkazave (Bld) [#/Vol]0.1 10*3/uL0.0-0.2 [facility] HospitalBasophils/100 WBC Auto (Bld)Ordered By: Srinivas Aguilar on 95-37-2796Gdzqjkxnm/100 WBC (Bld)0.4 %.[facility] HospitalBlood Cultureon 41-83-7980Huoqfocw identified Cx Nom (Bld)Premier HealthComment on above:Performed By: #### SHREYA SHARPE, CBC ####[address] [place] Bacteria identified Cx Nom (Bld)No Growth 4 Days PERFORMED BY: [facility] [id number] PATHOLOGIST HELP DESK SUPPORT SPECIALIST CHRISTO PINO M.D.Premier HealthComment on above: Performed By: #### SHREYA SHARPE, CBC ####[address] USACalcium [Mass/volume] in Serum or PlasmaOrdered By: Srinivas Aguilar on 43-14-9588Juhcfsh [Mass/Vol]7.9 mg/dL8.6-10.3FProMedica Defiance Regional HospitalCarbon dioxide, total [Moles/volume] in Serum or PlasmaOrdered By: Srinivas Aguilar on 89-78-1289QM1 [Moles/Vol]22.3 mmol/L21.0-31.0[facility] HospitalChloride [Moles/volume] in Serum or PlasmaOrdered By: Srinivas Aguilar on 71-08-7856Mhxvrsug [Moles/Vol]102 mmol/S16-978UllmplstuMercer County Community HospitalComplete Blood Count Auto Diffon 69-53-0163Odmrceiol (Bld) [#/Vol]0.1 10*3/uLNormal0.0-0.2FProMedica Defiance Regional HospitalComment on above:Result Comment: PERFORMED BY:[address] [place], [place] [phone] MEDICAL DIRECTORCHRISTO PINO M.D.Performed By: #### SHREYA SHARPE, CBC ####[address] [address] USABasophils/100 WBC (Bld)0.4 %Normal.[facility] Community HospitalComment on above:Performed By: #### SHREYA SHARPE, CBC ####[address] [address] [facility] Eosinophils (Bld) [#/Vol]0.4 10*3/uLNormal0.0-0.45[facility] Community HospitalComment on above:Performed By: #### SHREYA SHARPE, CBC ####[address] [address] USAEosinophils/100 WBC (Bld)2.8 %Normal.[facility] Community HospitalComment on above:Performed By: #### SHREYA SHARPE, CBC ####[address] [address] USAErythrocyte distribution width (RBC) [Ratio]16.8 %High12.0-14.8 [facility] Community HospitalComment on above:Performed By: #### SHREYA SHARPE, CBC ####[address] [facility] Hematocrit (Bld) [Volume fraction]28.4 %Low38.8-50.0[facility] Community HospitalComment on above:Performed By: #### SHREYA SHARPE, CBC ####[address] [address] USAHemoglobin (Bld) [Mass/Vol]9.2 g/dLLow13.0-17.0[facility] HospitalComment on above:Performed By: #### SHREYA SHARPE, CBC ####[address] [address] USALymphocytes (Bld) [#/Vol]4.5 10*3/uLNormal1.00-4.8 [facility] HospitalComment on above:Performed By: #### SHREYA SHARPE, CBC ####[address] [address] [place] Lymphocytes/100 WBC (Bld)33.0 %Normal.[facility] Community HospitalComment on above:Performed By: #### SHREYA SHARPE, CBC ####[address] [address] USAMCH (RBC) [Entitic mass]30.7 pgNormal 27.5-35.2FProMedica Defiance Regional HospitalComment on above:Performed By: #### SHREYA SHARPE, CBC ####[address] [address] USAMCV (RBC) [Entitic vol]94.9 mSIocolo56.5-101Mer[facility] County Community HospitalComment on above:Performed By: #### SHREYA SHARPE, CBC ####[address] [address] USAMean Corpuscular HGB Conc32.4 g/dLLow32.5-35.6FProMedica Defiance Regional HospitalComment on above:Performed By: #### SHREYA SHARPE, CBC ####[address] [address] USAMonocytes (Bld) [#/Vol]1.2 10*3/uLHigh0.0-0.8 [facility] HospitalComment on above:Performed By: #### SHREYA SHARPE, CBC ####[address] [address] [place] Monocytes/100 WBC (Bld)20.44 %High0.00-20.00[facility] Comment on above:Result Comment: For adults in ED, MDW > 20.0 may be associated with a higher risk of sepsis during the first 12 hrs of hospital admission Performed By: #### SHREYA SHARPE, CBC ####[address] [place] [address] USAMonocytes/100 WBC (Bld)8.6 %Normal.[facility] Community HospitalComment on above:Performed By: #### SHREYA SHARPE, CBC ####[address] [address] [place] Neutrophils (Bld) [#/Vol]7.5 10*3/uLNormal1.8-7.7FProMedica Defiance Regional HospitalComment on above:Performed By: #### SHREYA SHARPE, CBC ####[address] [address] USANeutrophils/100 WBC (Bld)55.2 %Normal.[facility] Community HospitalComment on above:Performed By: #### SHREYA SHARPE, CBC ####[address] [address] USANRBC%0.1 /100{WBC}Normal0-0.5FProMedica Defiance Regional HospitalComment on above:Performed By: #### SHREYA SHARPE, CBC ####[address] [address] USAPlatelet mean volume (Bld) [Entitic vol]9.6 fLNormal6.6-10.1FProMedica Defiance Regional HospitalComment on above: Performed By: #### SHREYA SHARPE, CBC ####[address] [address] USAPlatelets (Bld) [#/Vol]277 10*3/eWZdwzab739-613 [facility] HospitalComment on above:Performed By: #### SHREYA SHARPE, CBC ####[address] [address] [place] RBC (Bld) [#/Vol]2.99 10*6/uLLow3.90-5.60[facility] Comment on above:Performed By: #### ANNEMARIE, LILLYLD, CBC ####[facility] [address] [place] [address] USAWBC (Bld) [#/Vol]13.7 10*3/uL High4.1-10.5FProMedica Defiance Regional HospitalComment on above:Performed By: #### ANNEMARIE, CUBLD, CBC ####[facility] [address] [place] [address] USACreatinine [Mass/volume] in Serum or PlasmaOrdered By: Srinivas Aguilar on 66-93-5377Magrpujzhx [Mass/Vol]4.95 mg/dL0.70-1.30[facility] HospitalEosinophils Auto (Bld) [#/Vol]Ordered By: Srinivas Aguilar on 08-27-2022 Eosinophils (Bld) [#/Vol]0.4 10*3/uL0.0-0.45[facility] Eosinophils/100 WBC Auto (Bld)Ordered By: Srinivas Aguilar on 08-27-2022 Eosinophils/100 WBC (Bld)2.8 %.[facility] HospitalErythrocyte distribution width Auto (RBC) [Ratio]Ordered By: Srinivas Aguilar on 08-27-2022 Erythrocyte distribution width (RBC) [Ratio]16.8 %12.0-14.8[facility] HospitalGlucose [Mass/volume] in Serum or PlasmaOrdered By: Srinivas Aguilar on 93-21-9090Ndvwnyg [Mass/Vol]202 mg/iW45-311TjjjcyntqMercer County Community Hospital Hematocrit Auto (Bld) [Volume fraction]Ordered By: Srinivas Aguilar on 08-27-2022 Hematocrit (Bld) [Volume fraction]28.4 %38.8-50.0[facility] HospitalHemoglobin [Mass/volume] in BloodOrdered By: Srinivas Aguilar on 08-27-2022 Hemoglobin (Bld) [Mass/Vol]9.2 g/dL13.0-17.0[facility] Lactate [Moles/volume] in Serum or PlasmaOrdered By: Srinivas Aguilar on 08-27-2022 Lactate [Moles/Vol]2.3 mmol/L0.5-2.2FProMedica Defiance Regional HospitalLactic Acid on 23-73-2082Nlxdmxr [Moles/Vol]2.3 mmol/LOff scale high0.5-2.2FProMedica Defiance Regional HospitalComment on above:Order Comment: Unacceptable specimen due to hemolysis. Redraw reordered.Result Comment: Critical Result : Called to and read back by: BETH DÍAZ at: 08/27/2022 13:58:03by:[id number] BY:[facility] [place] [address] [place], [place] [phone] MEDICAL DIRECTORCHRISTO PINO M.D.Performed By: #### LACTIC ####[address] [address] [facility] Leukocytes [#/volume] corrected for nucleated erythrocytes in Blood by Automated counOrdered By: Srinivas Aguilar on 19-70-6450DQB corrected for nucl RBC Auto (Bld) [#/Vol]13.7 10*3/uL4.1-10.5FProMedica Defiance Regional HospitalLymphocytes Auto (Bld) [#/Vol]Ordered By: Srinivas Aguilar on 20-08-4134Zyeevljzukj (Bld) [#/Vol]4.5 10*3/uL1.00-4.8[facility] HospitalLymphocytes/100 WBC Auto (Bld) Ordered By: Srinivas Aguilar on 87-83-0017Lldqgekszzs/100 WBC (Bld)33.0 %.[facility] Auto (RBC) [Entitic mass]Ordered By: Srinivas Aguilar on 31-46-0383RFB (RBC) [Entitic mass]30.7 pg27.5-35.2FTwin City HospitalHC Auto (RBC) [Mass/Vol]Ordered By: Srinivas Aguilar on 12-77-3764XIRU (RBC) [Mass/Vol]32.4 g/dL32.5-35.6FProMedica Defiance Regional HospitalMCV Auto (RBC) [Entitic vol]Ordered By: Srinivas Aguilar on 27-29-5744OUO (RBC) [Entitic vol]94.9 fL 83.5-101Mer[facility] HospitalMonocyte distribution width [Entitic volume] in Blood by AutomatedOrdered By: Srinivas Aguilar on 03-86-8546Xophywww distribution width Auto (Bld) [Entitic vol]20.44 %0.00-20.00[facility] HospitalMonocytes Auto (Bld) [#/Vol]Ordered By: Srinivas Aguilar on 08-27-2022 Monocytes (Bld) [#/Vol]1.2 10*3/uL0.0-0.8[facility] Monocytes/100 WBC Auto (Bld)Ordered By: Srinivas Aguilar on 63-33-7629Nytcdrzdt/100 WBC (Bld)8.6 %.[facility] Community HospitalNeutrophils Auto (Bld) [#/Vol] Ordered By: Srinivas Aguilar on 51-65-1023Jipushmsdwm (Bld) [#/Vol]7.5 10*3/uL1.8-7.7 [facility] HospitalNeutrophils/100 WBC Auto (Bld)Ordered By: Srinivas Aguilar on 51-48-3217Tlqqktwkzfm/100 WBC (Bld)55.2 %.[facility] HospitalNo Panel InformationOrdered By: Srinivas Aguilar on 71-57-788521.732 mL/Min [facility]17.55[facility] HospitalNucleated erythrocytes [Presence] in Blood by Automated countOrdered By: Srinivas Aguilar on 28-46-8336Kecavexrg RBC Auto Ql (Bld)0.1 /100{WBC}0-0.5FProMedica Defiance Regional HospitalPlatelet mean volume Auto (Bld) [Entitic vol]Ordered By: Srinivas Aguilar on 38-44-2137Tvfkfymy mean volume (Bld) [Entitic vol]9.6 fL6.6-10.1 [facility] HospitalPlatelets Auto (Bld) [#/Vol]Ordered By: Srinivas Aguilar on 02-35-0080Uroutjpdn (Bld) [#/Vol]277 10*3/nW867-578FgzbkgsyaMercer County Community HospitalPotassium [Moles/volume] in Serum or PlasmaOrdered By: Srinivas Aguilar on 47-50-8633Ppwfmktjt [Moles/Vol]4.1 mmol/L3.5-5.1FProMedica Defiance Regional HospitalRBC Auto (Bld) [#/Vol]Ordered By: Srinivas Aguilar on 34-70-0778GBV (Bld) [#/Vol]2.99 10*6/uL3.90-5.60Barnesville Hospitalerum or plasma anion gap determinationOrdered By: Srinivas Aguilar on 19-31-9670Fqrqd gap [Moles/Vol]14.8 mmol/L6.0-15.0Barnesville Hospitalodium [Moles/volume] in Serum or PlasmaOrdered By: Srinivas Aguilar on 62-03-5696Spbamg [Moles/Vol]135 mmol/F451-724DzvgpkggxMercer County Community HospitalUrea nitrogen [Mass/volume] in Serum or PlasmaOrdered By: Srinivas Aguilar on 82-93-2033Tvyp nitrogen [Mass/Vol]39 mg/dL7-25Mer[facility] Community HospitalWBC Auto (Bld) [#/Vol]Ordered By: Srinivas Aguilar on 66-32-3375MBY (Bld) [#/Vol]13.7 10*3/uL 4.1-10.5FProMedica Defiance Regional HospitalXR foot RT min 3V*on 45-66-2697MY foot RT min 3V*NormalMercer County Community HospitalBacteria identified Aer cx Nom (Unsp spec)Ordered By: Mervat Santiago on 21-74-3956Umigpip culturePseudomonas aeruginosa (MDRO)[facility] HospitalAerobic culturePseudomonas aeruginosa (MDRO)#2FMercy Health Anderson Hospitaluperficial Wound Cultureon 90-43-8983Wugmyfxfnok Wound CultureNormalMercer County Community Hospital Comment on above:Performed By: #### CUSUP ####[facility] [address] [place] [address] USACNPNon 72-79-5502QTWCNuvpsclmy (FVPRAD) SIMON LOTT ([id number]) 1950 M Date Time Provider Department 07/24/22 NATHEN MCCOY During your visit today, we recorded the following information about you: Nathen Mccoy APRN.CNP 07/24/2022 3:45 PM Signed Telephone Encounter~ Person of Contact: Caitlyn 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 He has a 10:30 [...] mouth every 8 hours as needed. - sulfamethoxazole-trimethoprim (BACTRIM DS,SEPTRA DS) 800-160 mg per [...] COMPLEX (B-COMPLEX ORAL) Take by mouth. - PSEUDOEPHEDRINE/ACETAMINOPHEN (CEPACOL SORE THROAT ORAL) Take by [...] Status:Closed by SRIDHAR MCCOY (more content not included)...Normal [facility] metabolic 2000 panelon 75-55-8799Rxdhn gap [Moles/Vol]11 mmol/LNormal9-18[facility]on HospitalComment on above:Order Comment: Specimen Type: BLOOD SPECIMENOrdering Facility: [facility] Address:[address] [place] [address]Sggtjulze By: #### 97224-2 ####[facility] LABORATORYCLIA [id number] [facility] [place] [address] [place] AMERICACalcium [Mass/Vol]8.7 mg/dLNormal8.5-10.2[facility]on HospitalComment on above:Order Comment: Specimen Type: BLOOD SPECIMENOrdering Facility: [facility] Address:[address] [place] [address] Performed By: #### 29833-2 ####[facility] LABORATORYIA [id number] [place] [address] [place] AMERICAChloride [Moles/Vol]108 mmol/LIxpd41-483Rbja HospitalComment on above:Order Comment: Specimen Type: BLOOD SPECIMENOrdering Facility: [facility] Address:[address] [place], [place] [address]Performed By: #### 77082-5 ####[facility] LABORATORYCLIA [id number] [place] [address] [place] AMERICACO2 [Moles/Vol]21 mmol/XChn41-12[facility] Comment on above:Order Comment: Specimen Type: BLOOD SPECIMENOrdering Facility: [facility] Address:[address] [place] [address] Performed By: #### 88929-9 ####[facility] CENTERIA [id number] [place] [address] [place] AMERICACreatinine [Mass/Vol]4.58 mg/dLHigh0.73-1.22Av HospitalComment on above:Order Comment: Specimen Type: BLOOD SPECIMENOrdering Facility: [facility] Address:[address] [place], [place] [address]Performed By: #### 09194-4 ####[facility] CENTERIA [id number] [place] [address] [place] AMERICAESTIMATED GLOMERULAR FILTRATION RATE13 mL/min/1.73m???Low>=60Avon HospitalComment on above:Order Comment: Specimen Type: BLOOD SPECIMENOrdering Facility: [facility] Address:[address] [place], [place] [address]Result Comment: Estimated Glomerular Filtration Rate (eGFR) is calculated using the 2020 CKD-EPI creatinine equation. This equation utilizes serum creatinine, sex, and age as parameters. The creatinine assay has traceable calibration to isotope dilution-mass spectrometry. Refer to KDIGO guidelines for clinical interpretation. In patients with unstable renal function, e.g. those with acute kidney injury, the eGFR may not accurately reflect actual GFR.Performed By: #### 03125-9 ####[facility] CENTERIA [id number] [place] [address] [place] AMERICAGlucose [Mass/Vol]155 mg/iFTfpp23-72Nmkh HospitalComment on above:Order Comment: Specimen Type: BLOOD SPECIMENOrdering Facility: [facility] Address:[address] [place], [place] [address]Result Comment: The [place] Diabetes Association (ADA) provides guidance for cutoff [...] Standards of Medical Care in Diabetes 2016, [place] Diabetes Association. Diabetes Care. 2016.39(Suppl 1).Performed By: #### 95949-7 ####[facility] MED[facility] CENTERIA [id number] [place] [id number] [place] OF AMERICAPotassium [Moles/Vol]5.0 mmol/LNormal3.7-5.1Avon HospitalComment on above:Order Comment: Specimen Type: BLOOD SPECIMENOrdering Facility: [facility] Address:[address] [address]Performed By: #### 09895-6 ####[facility] LABORATORYIA [id number] [place] [address] [place] Sodium [Moles/Vol]140 mmol/TYouxlf454-326Rzne HospitalComment on above:Order Comment: Specimen Type: BLOOD SPECIMENOrdering Facility: [facility] Address:[address] [place], [place] [address]Performed By: #### 71834-4 ####[facility] LABORATORYCLIA [id number] [facility] [place] [address] [place] STATES OF AMERICAUrea nitrogen [Mass/Vol]71 mg/dLHigh 9-24Avon HospitalComment on above:Order Comment: Specimen Type: BLOOD SPECIMENOrdering Facility: [facility] Address:[place] [address]Xmzgmufzs By: #### 78537-8 ####[facility] LABORATORYCLIA [id number] [place] [address] [place] STATES OF AMERICACASE MANAGEMon 40-85-4287VNCI MANAGEMHNO ID: [id number] Author: MAYE Son Service: ? Author Type: Survey Interviewer Type: Care Mgt Progress Note Filed: 07/18/2022 2:29 PM Note Text: CARE MANAGEMENT DISCHARGE NOTE SERVICE DATE: July 18, 2022 SERVICE TIME: 2:28 PM Admission Date: 07/17/2022 LOS: 1 day Discharge Arrangement Discharge Arrangement: Assisted Facility Was an expedited discharge program used?: No Provider Name: [facility] Caregiver Assessment Caregiver is ready, willing and able to meet the patient's needs as recommended by the inter-professional team: Yes Name of Caregiver: [facility] Transportation Arrangements Transportation Arrangements: Ambulance Transportation Agency and Phone #:: [facility] [phone] Date of Trip: 07/18/22 Time of Trip: 1700 Type of Service: BLS Non-emergency Is Patient Medicaid Pending?: No Was transportation financial coverage discussed with family?: Patient Counseling Psychologist Location: [place] Destination: [facility] Financial Care Management Responsibility: None Handoff Communication: Handoff to: Primary Care Physician Primary Care Physician Name/Phone: Maye Murray DO [phone] Discharge Information Row Name Admission (Current) from 07/17/[address] Ass[address] Facility Agency [facility] Pt is medically cleared to dc today to [facility] today at 5:00 PM via MMT. AVS to be sent via [facility]. Bedside RN updated and provided with report number. Pt agreeable to plan. SIGNATURE: MAYE Son PATIENT NAME: Simon Lott DATE: July 18, 2022 TIME: 2:27 PM CONTACT #: [id number] [facility] Hospital MGT INIT Mervat 04-39-3983QICA MGT INIT VIOLET ID: [id number] Author: MAYE Son Service: ? Author Type: Survey Interviewer Type: Care Mgt Initial Assessment Filed: 07/18/2022 11:08 AM Note Text: CARE MANAGEMENT: ASSESSMENT AND DISCHARGE PLAN SERVICE DATE: July 18, 2022 SERVICE TIME: 11:06 AM PCP: Maye Murray DO Primary Contact: Extended Emergency Contact Information Primary Emergency Contact: Anant Lott Address: [address] [place] [address] [facility] Mobile Relation: Brother Admission Status: Observation Insurance Provider: MEDICARE A AND B Discharge Planning requested by: Per Department Practice Potential Transition Plans Assisted Facility/Intermediate Care Facility Advance Directives Current Advance Directive: None Tobacco Wrapping Machine Tender Attempted to Assist with AD Completion: Yes Action: Education Provided Current Living Arrangements and Support Lives with: Type of Residence: Assisted Facility Does the patient have to climb stairs at home?: No Care Facility Name: [facility] Support: Family members How do you manage to accomplish the following: Needs Assistance: Ambulation;Bathe/Shower;Dress;Meals/Meal Prep;Going to the bathroom;Medication Management;Transportation to appointments/community Current Services/Equipment Current Post-Acute Service(s): DME Current DME Type: Wheelchair-electric Discharge Planning Patient Goal(s): Heal wounds [place] Choice Explained: [place] Choice Given: Yes Level of Care Discussed: Assisted Facility Are you interested in bedside delivery of your medications? No Discharge Planning Participant(s): Patient Patient/Family Comments: Caregiver Assessment: Caregiver is ready, willing and able to meet the patient's needs as recommended by the inter-professional team: Yes Name of Caregiver: [facility] Transport at Discharge: Transportation Arrangements: Ambulance Transportation Agency and Phone #:: [facility] [phone] Date of Trip: 07/19/22 Time of Trip: 1200 Type of Service: BLS Non-emergency Is Patient Medicaid Pending?: No Was transportation financial coverage discussed with family?: Patient Counseling Psychologist Location: [place] Destination: [facility] Financial Care Management Responsibility: None Needs Prior to Discharge: Needs Prior to Discharge: Other: See Comment;Wound Care (Medical clearance) Post-Acute Discharge Plan: SW met with pt who is here for neph tube replacement. Pt is from [facility] under SNF. Plan is to return there at in. Transport set for 12:00 pm Friday via MMT. At baseline pt uses an electric WC, which is currently at the facility. [place] can accept back pt has bed hold days. SW to follow up. Packet by chart. SIGNATURE: MAYE Son PATIENT NAME: Simon Lott DATE: July 18, 2022 TIME: 11:06 AM CONTACT #: [id number] [facility] panel Auto (Bld)on 50-51-3350Cjbsnmbnajb distribution width (RBC) [Ratio]16.6 %High11.5-15.0Av HospitalComment on above:Order Comment: Specimen Type: BLOOD SPECIMEN [facility] Address: [address] [place], [place] [address]Performed By: #### 07265-5 #### [facility] CLIA [id number] [place] [address] [place] OF AMERICAHematocrit (Bld) [Volume fraction]28.8 % Low39.0-51.0Av HospitalComment on above:Order Comment: Specimen Type: BLOOD SPECIMEN [facility] Facility[facility] Address: [address] [id number] By: #### 74322-1 #### [facility] CLIA [id number] [place] [address] [place] STATES OF AMERICAHemoglobin (Bld) [Mass/Vol]9.6 g/dLLow 13.0-17.0Av HospitalComment on above:Order Comment: Specimen Type: BLOOD SPECIMEN Ordering Facility: [facility] Address: [address] [place], [place] [address]Performed By: #### 67686-2 #### [facility] [place] [id number] [address] (RBC) [Entitic mass]29.7 pgNormal 26.0-34.0Av HospitalComment on above:Order Comment: Specimen Type: BLOOD SPECIMEN [facility]ing Facility: [facility] Address: [address] [place], [place] [address]Performed By: #### 68870-7 #### [facility] [place] [id number] [address] (RBC) [Mass/Vol]33.3 g/dLNormal 30.5-36.0Av HospitalComment on above:Order Comment: Specimen Type: BLOOD SPECIMEN [facility] Facility[facility] Address: [address] [place], [place] [address]Performed By: #### 00239-0 #### [facility] [place] [id number] [address] (RBC) [Entitic vol]89.2 fLNormal 80.0-100.0Av HospitalComment on above:Order Comment: Specimen Type: BLOOD SPECIMEN [facility] Facility: [facility] Address: [address] [place], [place] [address]Performed By: #### 56422-5 #### [facility] [place] [id number] [address] RBC (Bld) [#/Vol]10*3/uLNormal <0.01Av HospitalComment on above:Order Comment: Specimen Type: BLOOD SPECIMEN [facility] Facility: [facility] Address: [address] [place], [place] [address]Performed By: #### 11272-2 #### [facility] [place] [id number] [address] [place], [place] [address] [place], [place] [address]Platelet mean volume (Bld) [Entitic vol] 12.0 fLNormal9.0-12.7Avon HospitalComment on above:Order Comment: Specimen Type: BLOOD SPECIMEN [facility] Facility: [facility] Address: [address] [place], [place] [address]Performed By: #### 91641-7 #### [facility] CLIA [id number] [facility] [place] [address] [facility]AL MEDICAL CENTERPlatelets (Bld) [#/Vol]184 10*3/uLNormal 150-400Av HospitalComment on above:Order Comment: Specimen Type: BLOOD SPECIMEN [facility] Address: [address] [place], [place] [address]Performed By: #### 14194-7 #### [facility] IA [id number] [address] [place] [address] [facility] CENTERRB (Bld) [#/Vol]3.23 10*6/uLLow4.20-6.00 [facility] HospitalComment on above:Order Comment: Specimen Type: BLOOD SPECIMEN Ordering Facility: [facility] Address: [address] [place], [place] [address]Performed By: #### 27969-6 #### [facility] [place] [id number] [address] [place] [address] [facility] CENTERWBC (Bld) [#/Vol]9.77 10*3/uLNormal 3.70-11.00Amboy HospitalComment on above:Order Comment: Specimen Type: BLOOD SPECIMEN Ordering Facility: [facility] Address: [address] [place], [place] [address]Performed By: #### 99086-0 #### [facility] [place] [id number] [address] [place] [address] [facility] CENTERCNDS [id number] ID: [id number] Author: Kimber See APRN.ROVING SIZER Service: Hospital Medicine Author Type: Nurse Practitioner Type: Discharge Summary Filed: 07/18/2022 4:13 PM Note Text: Attestation signed by Sheldon De Leon MD at 07/18/2022 6:27 PM [facility] STAFF: TEACHING PHYSICIAN NOTE OF PERSONAL INVOLVEMENT IN CARE I have reviewed the information obtained and documented by the Advanced Practice Provider below. I have personally participated in the laureano components and have discussed the case and management of the patient's care. Stable to discharge Sheldon De Leon MD Beeper Number: [id number] Date: July 18, 2022 Time: 6:27 PM [...] in 3 days to be done at [facility] IMAGING FOLLOW-UP: Not applicable LABS [...] HOSPITALIZATION: Procedure(s) (LRB): INJECTION PROCEDURE FOR ANTEGRADE NEPHROSTOGRAM/URETEROGRAM,COMPLETE DIAG PROCEDURE INCLUDING IMAGING GUIDANCE AND ALL ASSOCIATED RAD HEBERT; EXISTING ACCESS (N/A) No other procedures CONSULTS DURING HOSPITALIZATION: Treatment Team: Attending Provider: Sheldon De Leon MD Attending: Raimundo Montes MD Primary Service: Kimber See APRN.ROVING SIZER Orders Placed This Encounter Smoking Cessation Education CONSULT TO [facility] NEPHROLOGY (AV,FV,MM,VIRTUAL AT MO) PATIENT CONDITION AT DISCHARGE: Stable ADVANCE CARE PLANNING DISCUSSION (if applicable): N/A DISCHARGE DISPOSITION: Assisted Facility Discharge Physical Exam: VITAL SIGNS: BP [...] supple. LUNGS: Lungs c (more content not included)...[facility] [id number] ID: [id number] Author: Master Belal MD Service: Nephrology Author Type: Physician Type: Consults Filed: 07/18/2022 2:28 PM Note Text: [facility] SERVICE DATE: July [...] follows with Kiko Corbett [facility] who manages his stone disease and left ureteral obstruction and PCN and was referred to [facility] due to malfunction of his PCN. He [...] with Dr. Johan Taylor of nephrology in [facility]. Patient confirms this, though he cannot recall the content of any of their discussions. 'I know my kidneys are weak. Dr. Taylor takes care of me.'. Outside labs reviewed. Serum creatinine April 2022 4.7 mg/dl. January 2022 4 mg/dl. Denies current complaints and wants to leave. Med lists reviewed. Discrepancy between [facility], [facility], his nursing facility noted. Patient unable [...] mouth every 8 hours as needed.Disp: Rfl: sulfamethoxazole-trimethoprim (BACTRIM DS,SEPTRA DS) 800-160 mg per tabletTake [...] ORALTake by mouth.Disp: Rf (more content not included)...NormalAv HospitalComprehensive metabolic 2000 panelon 42-63-7751Qehmwmz [Mass/Vol]3.2 g/dLLow3.9-4.9Avon HospitalComment on above:Order Comment: Specimen Type: BLOOD SPECIMENOrdering Facility: [facility] Address:[address] [place] [address]Rblrlzjwp By: #### 32699-3 ####[facility] [id number] [facility] [place] [address] [place] AMERICAALP [Catalytic activity/Vol]120 U/RKsna50-738Frzb Hospital Comment on above:Order Comment: Specimen Type: BLOOD SPECIMENOrdering Facility: [facility] Address:[address] [place] [address] Performed By: #### 56141-6 ####[facility]ORY[facility]IA [id number] [place] [address] [place] AMERICAALT [Catalytic activity/Vol]10 U/KZyzuqh85-10Nuum HospitalComment on above:Order Comment: Specimen Type: BLOOD SPECIMENOrdering Facility: [facility] Address:[address] [place], [place] [address]Performed By: #### 19453-8 ####[facility]ORY[facility]IA [id number] [place] [address] [place] OF AMERICAAnion gap [Moles/Vol]11 mmol/LNormal9-18Avon HospitalComment on above:Order Comment: Specimen Type: BLOOD SPECIMENOrdering Facility: [facility] Address:[address] [place], [place] [address]Performed By: #### 71751-2 ####[facility] CENTERIA [id number] [place] [address] [place] OF AMERICAAST [Catalytic activity/Vol]20 U/UBjbopb85-63Gujn HospitalComment on above:Order Comment: Specimen Type: BLOOD SPECIMENOrdering Facility: [facility] Address:[address] [place], [place] [address]Performed By: #### 11713-4 ####[facility] CENTERIA [id number] [place] [address] [place] AMERICABilirubin [Mass/Vol]0.2 mg/dLNormal 0.2-1.3Avon HospitalComment on above:Order Comment: Specimen Type: BLOOD SPECIMENOrdering Facility: [facility] Address:[address] [place], [place] [address]Performed By: #### 98139-8 ####[facility]ORY[facility] [id number] [place] [address] [place] AMERICACalcium [Mass/Vol]8.6 mg/dLNormal8.5-10.2Avon HospitalComment on above:Order Comment: Specimen Type: BLOOD SPECIMENOrdering Facility: [facility] Address:[address] [place] [address] Performed By: #### 85695-4 ####[facility]ORYCLIA [id number] [place] [address] [place] AMERICAChloride [Moles/Vol]107 mmol/RJrku39-717Poir HospitalComment on above:Order Comment: Specimen Type: BLOOD SPECIMENOrdering Facility: [facility] Address:[address] [place], [place] [address]Performed By: #### 57082-8 ####[facility]ORYCLIA [id number] [place] [address] [place] AMERICACO2 [Moles/Vol]21 mmol/RKzn70-73Njnf Hospital Comment on above:Order Comment: Specimen Type: BLOOD SPECIMENOrdering Facility: [facility] Address:[address] [place] [address] Performed By: #### 94085-8 ####[facility] CENTERIA [id number] [place] [address] [place] AMERICACreatinine [Mass/Vol]4.66 mg/dLHigh0.73-1.22Av HospitalComment on above:Order Comment: Specimen Type: BLOOD SPECIMENOrdering Facility: [facility] Address:[address] [place], [place] [address]Performed By: #### 62859-5 ####[facility] CENTERIA [id number] [place] [address] [place] AMERICAESTIMATED GLOMERULAR FILTRATION RATE13 mL/min/1.73m???Low>=60Avon HospitalComment on above:Order Comment: Specimen Type: BLOOD SPECIMENOrdering Facility: [facility] Address:[address] [place], [place] [address]Result Comment: Estimated Glomerular Filtration Rate (eGFR) is calculated using the 2020 CKD-EPI creatinine equation. This equation utilizes serum creatinine, sex, and age as parameters. The creatinine assay has traceable calibration to isotope dilution-mass spectrometry. Refer to KDIGO guidelines for clinical interpretation. In patients with unstable renal function, e.g. those with acute kidney injury, the eGFR may not accurately reflect actual GFR.Performed By: #### 39116-1 ####[facility] CENTERIA [id number] [place] [address] [place] AMERICAGlucose [Mass/Vol]117 mg/wEGgqi43-95Tati HospitalComment on above:Order Comment: Specimen Type: BLOOD SPECIMENOrdering Facility: [facility] Address:[address] [place], [place] [address]Result Comment: The [place] Diabetes Association (ADA) provides guidance for cutoff [...] Standards of Medical Care in Diabetes 2016, [place] Diabetes Association. Diabetes Care. 2016.39(Suppl 1).Performed By: #### 76737-3 ####[facility] CENTERIA [id number] [place] [address] [place] AMERICAPotassium [Moles/Vol]5.3 mmol/LHigh3.7-5.1Aacutecare health system Hospital Comment on above:Order Comment: Specimen Type: BLOOD SPECIMENOrdering Facility: [facility] Address:[address] [place] [address] Performed By: #### 67470-7 ####[facility]ORY[facility] [id number] [place] [address] [place] AMERICAProtein [Mass/Vol] 7.8 g/dLNormal6.3-8.0Av HospitalComment on above:Order Comment: Specimen Type: BLOOD SPECIMENOrdering Facility: [facility] Address:[address] [place], [place] [address]Performed By: #### 23297-7 ####[facility] CENTERIA [id number] [place] [address] [place] AMERICASodium [Moles/Vol]139 mmol/CPtqtnt779-011Kxsf HospitalComment on above:Order Comment: Specimen Type: BLOOD SPECIMENOrdering Facility: [facility] Address:[address] [address] Performed By: #### 66664-8 ####[facility]ORYCLIA [id number] [place] [address] [place] AMERICAUrea nitrogen [Mass/Vol]73 mg/dLHigh9-24Av HospitalComment on above:Order Comment: Specimen Type: BLOOD SPECIMENOrdering Facility: [facility] Address:[address] [address]Performed By: #### 93215-3 ####[facility]ORYIA [id number] [place] [address] [place] AMERICAActivated partial thromboplastin time (aPTT) in platelet poor plasma by coagulation aOrdered By: Pedro Drake on 06-62-0263wPLH Coag (PPP) [Time]30.9 s25.1-36.5FProMedica Defiance Regional HospitalAlanine aminotransferase [Enzymatic activity/volume] in Serum or PlasmaOrdered By: Pedro Drake on 77-33-0910HAV [Catalytic activity/Vol]12 U/L7-52Mer[facility] Community HospitalAlbumin [Mass/volume] in Serum or Plasma by Bromocresol green (BCG) dye binding methoOrdered By: Pedro Drake on 77-84-6819Wrvnlgk BCG dye [Mass/Vol]3.3 g/dL3.5-5.7FProMedica Defiance Regional HospitalAlkaline phosphatase [Enzymatic activity/volume] in Serum or PlasmaOrdered By: Pedro Drake on 08-75-4671ODT [Catalytic activity/Vol]100 U/H53-180QhfqsuzavMercer County Community Hospital Anisocytosis LM Ql (Bld)Ordered By: Pedro Drake on 51-21-2837Rfldumbvbjku Ql (Bld)MarkedMercer County Community HospitalAspartate aminotransferase [Enzymatic activity/volume] in Serum or PlasmaOrdered By: Pedro Drake on 51-67-1963RMA [Catalytic activity/Vol]18 U/N30-67DqwsezkupMercer County Community HospitalAutomated erythrocytes count in urine sediment (number/area)Ordered By: Pedro Drake on 59-07-0112RNP Auto (Urine sed) [#/Area]0-1 [HPF]0-4FProMedica Defiance Regional HospitalAutomated leukocytes count in urine sediment (number/area)Ordered By: Pedro Drake on 92-27-6087ZFX Auto (Urine sed) [#/Area]0- 1 [HPF]0-4FProMedica Defiance Regional HospitalAutomated urine color determination Ordered By: Pedro Drake on 01-40-5388Ifoan (U)YellowYellowMercer County Community HospitalComment on above:Order Comment: Name Collection Type:: Clean- Voided MidstreamPerformed By: #### ADDONUAPLUS ####[facility] [address] [place] [address] USABRIEF OP NOTon 95-93-6386OKCQW OP NOT HNO ID: [id number] Author: Riya Arambula MD Service: Radiology Author Type: Physician Type: Brief Op Note Filed: 07/17/2022 6:17 PM Note Text: RADIOLOGY BRIEF PROCEDURE NOTE LOG ID: [id number] Surgery/Procedure Date: 07/17/2022 Incision/Procedure Start Time: 5:55 PM Incision Close/Procedure End Time: 6:06 PM Informed Consent obtained under separate note. ATTENDING RADIOLOGIST: Interventional: Dr. Riya Arambula MULTIPLE SPINDLE ROUTER OPERATOR: None PRE-PROCEDURAL DIAGNOSIS: Left ureteral occlusion, blood clots in nephrostomy tube ANESTHESIA: None PROCEDURE: Initial nephrostogram demonstrated that the [place] loop of the tube was slightly retracted into a calyx and the collecting system was filled with thrombus. The existing 10 Serbian catheter was removed over a wire. No active bleeding was encountered. A larger 12 Serbian catheter was placed with the [place] loop positioned in the renal pelvis. As much residual thrombus was aspirated as possible. Again, no acute bleeding was demonstrated. POST-PROCEDURAL DIAGNOSIS: Same COMPLICATIONS: None ESTIMATED BLOOD LOSS: Minimal INDWELLING DEVICES: [employer] 12 Serbian nephrostomy catheter. SPECIMENS: None DISPOSITION: Patient hemodynamically [...] 17, 2022 TIME: 6:10 PM CONTACT #: [phone] HospitalBacterial blood culture Ordered By: Pedro Drake on 51-40-1102Kncwlzbo identified Cx Nom (Bld)NO GROWTH 5 DAYSMercer County Community HospitalBasophils Auto (Bld) [#/Vol]Ordered By: Pedro Drake on 53-21-4743Vdocmfink (Bld) [#/Vol]0.1 10*3/uL0.0-0.2FProMedica Defiance Regional HospitalBasophils/100 WBC Auto (Bld)Ordered By: Pedro Drake on 24-14-8533Paydkukua/100 WBC (Bld)0.6 %.[facility] Bilirubin Test strip Ql (U)Ordered By: Pedro Drake on 71-02-2836Jsfvyexub Ql (U) NegativeNegativeMercer County Community HospitalBilirubin.total [Mass/volume] in Serum or PlasmaOrdered By: Pedro Drake on 93-84-1400Sttswhibs [Mass/Vol]0.3 mg/dL0.3-1.0Mer[facility] County Community HospitalBlood Cultureon 35-92-6137Djqkeflc identified Cx Nom (Bld)NO GROWTH 5 DAYS PERFORMED BY: [facility] [address] [place] [address] PATHOLOGIST HELP DESK SUPPORT SPECIALIST CHRISTO PINO M.D.Premier HealthComment on above: Performed By: #### CUBLD, PT, CMP, PTT, SCAN CBC ####[facility] [address] [place] [address] USABacteria identified Cx Nom (Bld)NO GROWTH 5 DAYS PERFORMED BY: [facility] [address] [place] [address] PATHOLOGIST HELP DESK SUPPORT SPECIALIST CHRISTO PINO M.D.Premier HealthComment on above: Performed By: #### CUBLD, PT, CMP, PTT, SCAN CBC ####[facility] [address] [place] [address] [facility] panel Auto (Bld)on 07-17-2022 Erythrocyte distribution width (RBC) [Ratio]16.7 %High11.5-15.0[facility] Comment on above:Order Comment: Specimen Type: BLOOD SPECIMENOrdering Facility: [facility] Address:[address] [place] [address] Performed By: #### 01782-8 ####[facility]ORYIA [id number] [place] [address] [facility] CENTERHematocrit (Bld) [Volume fraction]29.3 %Low39.0-51.0[facility] Hospital CenterComment on above:Order Comment: Specimen Type: BLOOD SPECIMENOrdering Facility: [facility] Address:[address] [place], [place] [address]Performed By: #### 72429-1 ####[facility] CENTERIA [id number] [place] [address] [facility] CENTERHemoglobin (Bld) [Mass/Vol]9.6 g/dLLow13.0-17.0 [facility] Hospital CenterComment on above:Order Comment: Specimen Type: BLOOD SPECIMENOrdering Facility: [facility] Address:[address] [place], [place] [address]Performed By: #### 47159-2 ####[facility]ATORYIA [id number] [place] [address] [facility] (RBC) [Entitic mass]29.1 puVuqauw07.0-34.0AvSt. Joseph's Regional Medical Center Comment on above:Order Comment: Specimen Type: BLOOD SPECIMENOrdering Facility: [facility] Address:[address] [place] [address] Performed By: #### 91704-3 ####[facility]ORYIA [id number] [place] [address] [place] AMERICAMCHC (RBC) [Mass/Vol]32.8 g/gIDlsgft77.5-36.0Av HospitalComment on above:Order Comment: Specimen Type: BLOOD SPECIMENOrdering Facility: [facility] Address:[address] [place], [place] [address]Performed By: #### 16189-5 ####[facility]ATORYCLIA [id number] [place] [address] [facility] CENTERMCV (RBC) [Entitic vol]88.8 aWBbaszj76.0-100.0Av HospitalComment on above:Order Comment: Specimen Type: BLOOD SPECIMENOrdering Facility: [facility] Address:[address] [place], [place] [address]Performed By: #### 14817-3 ####[facility]ORYIA [id number] [address] [place] Nucleated RBC (Bld) [#/Vol]10*3/uLNormal<0.01Av HospitalComment on above:Order Comment: Specimen Type: BLOOD SPECIMENOrdering Facility: [facility] Address:[address] [place], [place] [address]Performed By: #### 68018-3 ####[facility] CENTERIA [id number] [address] OF KETTERING HEALTHPlatelet mean volume (Bld) [Entitic vol]12.1 fLNormal9.0-12.7Avon HospitalComment on above:Order Comment: Specimen Type: BLOOD SPECIMENOrdering Facility: [facility] Address:[address] [place], [place] [address]Performed By: #### 89978-0 ####[facility]ATORYIA [id number] [place] [address] [place] KETTERING HEALTHPlatelets (Bld) [#/Vol]191 10*3/sRMjivww876-809[facility] Comment on above:Order Comment: Specimen Type: BLOOD SPECIMENOrdering Facility: [facility] Address:[address] [place] [address] Performed By: #### 35072-1 ####[facility]ATORYIA [id number] [place] [address] [facility] (d) [#/Vol] 3.30 10*6/uLLow4.20-6.00[facility] Hospital CenterComment on above:Order Comment: Specimen Type: BLOOD SPECIMENOrdering Facility: [facility] Address:[address]Performed By: #### 02676-4 ####[facility]ATORYIA [id number] [place] [address] [facility] ([facility]) [#/Vol]11.37 10*3/uLHigh3.70-11.00[facility] Comment on above:Order Comment: Specimen Type: BLOOD SPECIMENOrdering Facility: [facility] Address:[address] Performed By: #### 83142-3 ####[facility]ATORYIA [id number] [place] [address] [facility] CENTERCNPNon 07-17-2022 CNPNTelephone (AVPRAD) SIMON LOTT ([id number]) 1950 M Date Time Provider Department 07/17/22 ARDEN STOCKTON During your visit today, we recorded the following information about you: Arden Stockton MD 07/17/2022 3:58 AM Signed [facility]. Has nephrostomy tube. Cr 4.5 [...] RN - Fully Assessed Reason for Visit: [place] - ED Follow Up [3599] Prescriptions as of 07/17/2022 - ascorbic acid-bioflavonoids [...] mouth every 8 hours as needed. - sulfamethoxazole-trimethoprim (BACTRIM DS,SEPTRA DS) 800-160 mg per [...] COMPLEX (B-COMPLEX ORAL) Take by mouth. - PSEUDOEPHEDRINE/ACETAMINOPHEN (CEPACOL SORE THROAT ORAL) Take by [...] 03/25/2017 Encounter Status:Closed by ARDEN STOCKTON on 07/17/22[facility] HospitalCONSULTon [id number] ID: [id number] Author: Selina Ibrahim APRN.ROVING SIZER Service: Wound/Ostomy Author Type: Nurse Practitioner Type: [...] the admitting diagnosis of Gross hematuria. From [facility]. Presenting wound information: Location: Right heel [...] today's visit: Wound photo Most recent labs Impression/Recommendations 1.Right heel open wound -POA -see wound [...] surface, Seat cushion, an (more content not included)...NormalAvon HospitalCOVID-19 Antigenon 56-74-8345TBOZD [facility] HospitalComment on above:Performed By: #### CANDIDO CARRIONID-19 LEENA ####[facility] [address] [place] [address] USACOVID-19 SOFIAOrdered By: Sonal Márquez on 79-25-6939VGLF-CoV+SARS-CoV-2 (COVID-19) Ag IA.rapid Ql (Resp)NegativeNegative [facility] Community HospitalComment on above:This is a duplicate Leena SARS Antigen (KATHLEEN) result to be used for statistical tracking purpose only.CT abdomen pelvis wo conon 47-46-9821DZ abdomen pelvis wo conNUniversity Hospitals Parma Medical CenterCalcium [Mass/volume] in Serum or PlasmaOrdered By: Pedro Drake on 08-20-2463Gyasvfn [Mass/Vol]7.9 mg/dL8.6-10.3FProMedica Defiance Regional Hospital Carbon dioxide, total [Moles/volume] in Serum or PlasmaOrdered By: Pedro Drake on 46-32-4670NE3 [Moles/Vol]20.2 mmol/L21.0-31.0[facility] Chloride [Moles/volume] in Serum or PlasmaOrdered By: Pedro Drake on 07-17-2022 Chloride [Moles/Vol]107 mmol/O13-657DlvszqpypMercer County Community Hospital Comprehensive Metabolic Panelon 55-53-3377Xeslwmc [Mass/Vol]3.3 g/dLLow3.5-5.7 [facility] HospitalComment on above:Performed By: #### CUBLD, PT, CMP, PTT, SCAN CBC ####[address] [place] [address] USAAlbumin/Globulin [Mass ratio]0.7 {ratio}NormalMercer County Community HospitalComment on above:Performed By: #### CUBLD, PT, CMP, PTT, SCAN CBC ####[facility] [place] [address] USAALP [Catalytic activity/Vol]100 U/IKfaynp12-244AvpvnxfruMercer County Community Hospital Comment on above:Performed By: #### CUBLD, PT, CMP, PTT, SCAN CBC ####[facility] [place] [address] USAALT [Catalytic activity/Vol]12 U/LNormal7-52[facility] Community HospitalComment on above: Performed By: #### CUBLD, PT, CMP, PTT, SCAN CBC ####[address] [address] USAAnion gap [Moles/Vol]12.4 mmol/LNormal 6.0-15.0[facility] Community HospitalComment on above:Performed By: #### CUBLD, PT, CMP, PTT, SCAN CBC ####[address] [address] USAAST [Catalytic activity/Vol]18 U/UFwpfzh06-32 [facility] HospitalComment on above:Performed By: #### CUBLD, PT, CMP, PTT, SCAN CBC ####[address] [address] USABilirubin [Mass/Vol]0.3 mg/dLNormal0.3-1.0[facility] Community HospitalComment on above:Performed By: #### CUBLD, PT, CMP, PTT, SCAN CBC ####[address] [address] USACalcium [Mass/Vol]7.9 mg/dLLow8.6-10.3FProMedica Defiance Regional HospitalComment on above:Performed By: #### CUBLD, PT, CMP, PTT, SCAN CBC ####[address] [address] USAChloride [Moles/Vol]107 mmol/L Yztobn17-456NbiogkmocMercer County Community HospitalComment on above:Performed By: #### CUBLD, PT, CMP, PTT, SCAN CBC ####[address] [address] USACO2 [Moles/Vol]20.2 mmol/LLow21.0-31.0Mercer County Community HospitalComment on above:Performed By: #### CUBLD, PT, CMP, PTT, SCAN CBC ####[address] [address] USACreatinine [Mass/Vol]4.53 mg/dLHigh0.70-1.30[facility] Comment on above:Performed By: #### CUBLD, PT, CMP, PTT, SCAN CBC ####[address] [place] [address] USACreatinine Clr Calc Ecteuwhw98.25NoProvidence HospitalComment on above:Result Comment: PERFORMED BY:[address] [address] [address] [place], [place] [phone] MEDICAL MOOSE PINO M.D.Performed By: #### CUBLD, PT, CMP, PTT, SCAN CBC ####[address] [place] [address] USAGFR/1.73 sq M.predicted MDRD (S/P/Bld) [Vol rate/Area]13.049 mL/min/{1.73_m2}Premier HealthComment on above:Performed By: #### CUBLD, PT, CMP, PTT, SCAN CBC ####[address] [address] USAGlobulin (S) [Mass/Vol]4.8 g/dLNoProvidence HospitalComment on above:Performed By: #### CUBLD, PT, CMP, PTT, SCAN CBC ####[address] [place] [address] USAGlucose [Mass/Vol]115 mg/kNQcrg05-575WcjofpqjlMercer County Community HospitalComment on above:Result Comment: Random Glucose Reference Range is dependent on time and content of last meal. Glucose of more than 200 mg/dL in a nonstressed, ambulatory subject supports the diagnosis of Diabetes Mellitus. ADA recommended reference rangePerformed By: #### CUBLD, PT, CMP, PTT, SCAN CBC ####[address] [address] USAPotassium [Moles/Vol]4.6 mmol/LNormal3.5-5.1FProMedica Defiance Regional Hospital Comment on above:Performed By: #### CUBLD, PT, CMP, PTT, SCAN CBC ####[address] [place] [address] USAProtein [Mass/Vol]8.1 g/dLNormal6.4-8.9Mer[facility] County Community HospitalComment on above:Performed By: #### CUBLD, PT, CMP, PTT, SCAN CBC ####[facility] [address] [place] [address] USASodium [Moles/Vol]135 mmol/UJkp998-567 [facility] Community HospitalComment on above:Performed By: #### CUBLD, PT, CMP, PTT, SCAN CBC ####[facility] [address] [place] [address] USAUrea nitrogen [Mass/Vol]71 mg/dLHigh7-25Mercer County Community HospitalComment on above:Performed By: #### CUBLD, PT, CMP, PTT, SCAN CBC ####[facility] [address] [place] [address] [facility] Comprehensive metabolic 2000 panelon 87-98-2447Hwdnkvu [Mass/Vol]3.6 g/dLLow 3.9-4.9Avo HospitalComment on above:Order Comment: Specimen Type: BLOOD SPECIMENOrdering Facility: [facility] Address:[address] [place], [place] [address]Performed By: #### 10355-5 ####[facility] LABORATORYCLIA [id number] [place] [address] [place] AMERICAALP [Catalytic activity/Vol]125 U/HTcxb28-258[facility] Comment on above:Order Comment: Specimen Type: BLOOD SPECIMENOrdering Facility: [facility] Address:[address] [place] [address] Performed By: #### 40793-3 ####[facility] LABORATORYCLIA [id number] [place] [address] [place] AMERICAALT [Catalytic activity/Vol]12 U/XNhzjdp08-24Baie HospitalComment on above:Order Comment: Specimen Type: BLOOD SPECIMENOrdering Facility: [facility] Address:[address] [place], [place] [address]Performed By: #### 98434-2 ####[facility] LABORATORYCLIA [id number] [place] [address] [place] AMERICAAnion gap [Moles/Vol]9 mmol/LNormal9-18Av HospitalComment on above:Order Comment: Specimen Type: BLOOD SPECIMENOrdering Facility: [facility] Address:[address] [place], [place] [address]Performed By: #### 81261-5 ####[facility]ORATORYCLIA [id number] [place] [address] [place] AMERICAAST [Catalytic activity/Vol]19 U/HHijfnt52-01Gnup HospitalComment on above:Order Comment: Specimen Type: BLOOD SPECIMENOrdering Facility: [facility] Address:[address] [place], [place] [address]Performed By: #### 49904-0 ####[facility]ICAL CENTERIA [id number] [place] [address] [place] AMERICABilirubin [Mass/Vol]0.2 mg/dLNormal 0.2-1.3Avon HospitalComment on above:Order Comment: Specimen Type: BLOOD SPECIMENOrdering Facility: [facility] Address:[address] [place], [place] [address]Performed By: #### 18914-7 ####[facility] CENTERIA [id number] [place] [address] [place] AMERICACalcium [Mass/Vol]8.7 mg/dLNormal8.5-10.2Avon HospitalComment on above:Order Comment: Specimen Type: BLOOD SPECIMENOrdering Facility: [facility] Address:[address] [place] [address] Performed By: #### 37711-2 ####[facility] LABORATORYIA [id number] [place] [address] [place] AMERICAChloride [Moles/Vol]106 mmol/PYshh69-844Lkbr HospitalComment on above:Order Comment: Specimen Type: BLOOD SPECIMENOrdering Facility: [facility] Address:[address] [place], [place] [address]Performed By: #### 79637-8 ####[facility]ORATORYCLIA [id number] [place] [address] [place] AMERICACO2 [Moles/Vol]22 mmol/EPdryor62-27Usxm Hospital Comment on above:Order Comment: Specimen Type: BLOOD SPECIMENOrdering Facility: [facility] Address:[address] [place] [address] Performed By: #### 22632-6 ####[facility] CENTERIA [id number] [place] [address] [place] AMERICACreatinine [Mass/Vol]4.48 mg/dLHigh0.73-1.22Av HospitalComment on above:Order Comment: Specimen Type: BLOOD SPECIMENOrdering Facility: [facility] Address:[address] [place], [place] [address]Performed By: #### 33102-6 ####[facility] [id number] [place] [id number] [place] OF AMERICAESTIMATED GLOMERULAR FILTRATION RATE13 mL/min/1.73m???Low>=60Av HospitalComment on above:Order Comment: Specimen Type: BLOOD SPECIMENOrdering Facility: [facility] Address:[address] [place], [place] [address]Result Comment: Estimated Glomerular Filtration Rate (eGFR) is calculated using the 2020 CKD-EPI creatinine equation. This equation utilizes serum creatinine, sex, and age as parameters. The creatinine assay has traceable calibration to isotope dilution-mass spectrometry. Refer to KDIGO guidelines for clinical interpretation. In patients with unstable renal function, e.g. those with acute kidney injury, the eGFR may not accurately reflect actual GFR.Performed By: #### 92166-0 ####[facility] LABORATORYIA [id number] [place] [address] [place] OF AMERICAGlucose [Mass/Vol]117 mg/bPKdpi61-10Ejrm HospitalComment on above:Order Comment: Specimen Type: BLOOD SPECIMENOrdering Facility: [facility] Address:[address] [place], [place] [address]Result Comment: The [place] Diabetes Association (ADA) provides guidance for cutoff [...] Standards of Medical Care in Diabetes 2016, [place] Diabetes Association. Diabetes Care. 2016.39(Suppl 1).Performed By: #### 00572-4 ####[facility] CENTERIA [id number] [place] [address] [place] AMERICAPotassium [Moles/Vol]5.3 mmol/LHigh3.7-5.1AAmerican Fork Hospital Comment on above:Order Comment: Specimen Type: BLOOD SPECIMENOrdering Facility: [facility] Address:[address] [place] [address] Performed By: #### 37348-1 ####[facility] CENTERIA [id number] [place] [address] [place] AMERICAProtein [Mass/Vol] 8.1 g/dLHigh6.3-8.0Av HospitalComment on above:Order Comment: Specimen Type: BLOOD SPECIMENOrdering Facility: [facility] Address:[address] [place], [place] [address]Performed By: #### 68279-6 ####[facility] CENTERIA [id number] [place] [address] [place] AMERICASodium [Moles/Vol]137 mmol/LApdoue263-894Abch HospitalComment on above:Order Comment: Specimen Type: BLOOD SPECIMENOrdering Facility: [facility] Address:[address] [address] Performed By: #### 68436-7 ####[facility] CENTERIA [id number] [place] [address] [place] AMERICAUrea nitrogen [Mass/Vol]70 mg/dLHigh9-24Amboy HospitalComment on above:Order Comment: Specimen Type: BLOOD SPECIMENOrdering Facility: [facility] Address:[address] [place] [address]Bwqnsjatn By: #### 16829-3 ####[facility] LABORATORYCLIA [id number] [facility] [place] [address] [place] AMERICACreatinine [Mass/volume] in Serum or PlasmaOrdered By: Pedro Drake on 17-91-2874Nhxtfikdao [Mass/Vol]4.53 mg/dL0.70-1.30Mer[facility] County Community HospitalDipstick and Microscopicon 12-35-1361Bjwwozldfl (U)ClearNormal ClearMercer County Community HospitalComment on above:Order Comment: Name Collection Type:: Clean-Voided MidstreamPerformed By: #### ADDONUAPLUS ####[address] [address] [place] Bacteria,UrineNone SeenNormalNone [facility] HospitalComment on above:Order Comment: Name Collection Type:: Clean-Voided MidstreamPerformed By: #### ADDONUAPLUS ####[address] [address] USABilirubin,UrineNegativeNormalNegativeMercer County Community HospitalComment on above:Order Comment: Name Collection Type:: Clean-Voided MidstreamPerformed By: #### ADDONUAPLUS ####[address] [address] USAGlucose Ql (U)NormalNormal NormalMercer County Community HospitalComment on above:Order Comment: Name Collection Type:: Clean-Voided MidstreamPerformed By: #### ADDONUAPLUS ####[address] [address] USAHyaline Casts,UrineNone SeenNormal0-8Mer[facility] County Community HospitalComment on above: Order Comment: Name Collection Type:: Clean-Voided MidstreamResult Comment: PERFORMED BY:[address], [place] [phone] MEDICAL DIRECTORCHRISTO PINO M.D.Performed By: #### ADDONUAPLUS ####[address] [address] USAKetones Ql (U)NegativeNormalNegSt. Rita's Hospital Comment on above:Order Comment: Name Collection Type:: Clean-Voided Midstream Performed By: #### ADDONUAPLUS ####[address] [address] USALeukocyte esterase Test strip Ql (U)NegativeNormal NegativeMercer County Community HospitalComment on above:Order Comment: Name Collection Type:: Clean-Voided MidstreamPerformed By: #### ADDONUAPLUS ####[address] [address] [place] Nitrite,UrineNegativeNormalNegSt. Rita's HospitalComment on above:Order Comment: Name Collection Type:: Clean-Voided MidstreamPerformed By: #### ADDONUAPLUS ####[address] [address] USAOccult Blood,UrineNegativeNormHolmes County Joel Pomerene Memorial HospitalComment on above:Order Comment: Name Collection Type:: Clean-Voided MidstreamResult Comment: PERFORMED BY:[address] [address] [address] [place], [place] [phone] MEDICAL DIRECTORCHRISTO PINO M.D.Performed By: #### ADDONUAPLUS ####[address] [address] USARBC LM.HPF (Urine sed) [#/Area]0 /[HPF]Normal0-4 [facility] Community HospitalComment on above:Order Comment: Name Collection Type:: Clean-Voided MidstreamPerformed By: #### ADDONUAPLUS ####[address] [address] USASpecificy [place],Urine1.069Wnvydw5.001-1.030Mer[facility] Community HospitalComment on above:Order Comment: Name Collection Type:: Clean-Voided MidstreamPerformed By: #### ADDONUAPLUS ####[address] [place] [address] USASquamous Epithelial Cell,UrineNone SeenNormal0-2FProMedica Defiance Regional HospitalComment on above:Order Comment: Name Collection Type:: Clean- Voided MidstreamPerformed By: #### ADDONUAPLUS ####[address] [address] USAUrobilinogen,UrineNormalNormalNormal [facility] HospitalComment on above:Order Comment: Name Collection Type:: Clean-Voided MidstreamPerformed By: #### ADDONUAPLUS ####[address] [address] USAWBC LM.HPF (Urine sed) [#/Area]0 /[HPF]Normal0-4FProMedica Defiance Regional HospitalComment on above: Order Comment: Name Collection Type:: Clean-Voided MidstreamPerformed By: #### ADDONUAPLUS ####[address] [address] USAEosinophils Auto (Bld) [#/Vol]Ordered By: Pedro Drake on 07-17-2022 Eosinophils (Bld) [#/Vol]0.4 10*3/uL0.0-0.45[facility] Eosinophils/100 WBC Auto (Bld)Ordered By: Pedro Drake on 07-17-2022 Eosinophils/100 WBC (Bld)3.5 %.Mer[facility] County Community HospitalErythrocyte distribution width Auto (RBC) [Ratio]Ordered By: Pedro Drake on 07-17-2022 Erythrocyte distribution width (RBC) [Ratio]16.4 %12.0-14.8Mer[facility] County Community HospitalGlobulin Calc (S) [Mass/Vol]Ordered By: Pedro Drake on 07-17-2022 Globulin (S) [Mass/Vol]4.8 g/dLMercer County Community HospitalGlucose [Mass/volume] in Serum or PlasmaOrdered By: Pedro Drake on 93-92-1364Pftabtg [Mass/Vol]115 mg/sE35-275QwnenbwrfMercer County Community HospitalComment on above:ADA recommended reference rangeRandom Glucose Reference Range is dependent on time and content of last meal. Glucose of more than 200 mg/dL in a nonstressed, ambulatory subject supports the diagnosisof Diabetes Mellitus.HISTORY PHYSICALon [id number] PHYSICALHNO ID: [id number] Author: Raimundo Montes MD Service: Hospital Medicine Author Type: Physician Type: HANDP Filed: 07/17/2022 1:58 PM Note Text: DEPARTMENT OF HOSPITAL MEDICINE HISTORY AND PHYSICAL EXAM SERVICE DATE: 07/17/2022 Code Status: Not on file SERVICE TIME: 1:49 PM Primary Care Physician: Maye Murray, DO NIGHT AND WEEKEND COVERAGE: DUNDEE COVERAGE: Days: [phone], please contact via CoPatient Nights: [phone] - floor: please page [facility] Hospitalist night cover [phone] - 4th floor: please page [facility] Hospitalist night cover [phone] - 5th floor: please page [facility] Hospitalist night cover [phone] Subjective CHIEF COMPLAINT: hematuria an nephrostomy malfunction HPI: This is a 72 year old male who presents with hematuria in left nephrostomy tube and malfunction due to clots. Transferred from [facility].transferred to [facility] for IR evaluation Had the nephrostomy [...] 8 hours as needed., Disp: , Rfl: sulfamethoxazole-trimethoprim (BACTRIM DS,SEPTRA DS) 800-160 mg per tablet, [...] ORAL), Take by mouth., Disp: , Rfl: PSEUDOEPHEDRINE/ACETAMINOPHEN (CEPACOL SORE THROAT ORAL), Take by mouth., [...] in hearing or vision (more content not included)...NormalMckay-Dee Hospital CenterHematocrit Auto (Bld) [Volume fraction]Ordered By: Pedro Drake on 24-23-3963Ypfyfvgmjg (Bld) [Volume fraction]29.7 %38.8-50.0Mer[facility] County Community HospitalHemoglobin [Mass/volume] in BloodOrdered By: Pedro Drake on 82-50-6528Bqnwlzgqxf (Bld) [Mass/Vol]9.4 g/dL13.0-17.0Mer[facility] Community HospitalHypochromia LM Ql (Bld)Ordered By: Pedro Drake on 54-63-4103Hzacwidxxau Ql (Bld)ModerateMercer County Community HospitalIR EXCHANGE NEPH TUBEon 44-75-2012UM EXCHANGE NEPH TUBE* * *Final Report* * * DATE OF EXAM: Jul 17 2022 6:00PM [facility] 0777 - IR EXCHANGE NEPH TUBE / PROCEDURE REASON: hydronephrosis * * * * Physician Interpretation * * * * PROCEDURE: GENITOURINARY CATHETER EXCHANGE Procedural Personnel Attending physician(s): Riya Arambula M.D. [employer] Operator: None Pre-procedure diagnosis: Left ureteral occlusion Post-procedure diagnosis: Same Indication: Bloody output from left nephrostomy catheter Additional clinical history: This is a 72-year-old gentleman with history of left ureterolithiasis and prior failed cytoscopic left ureteral stenting who had a left nephrostomy catheter placed by IR on 05/06/2022 at the request of his urologist, Dr. Kiko Corbett of [facility]. He returned on 07/01/2022 for an attempt [...] nephrostogram was performed and demonstrated that the [place] loop of the catheter had retracted slightly into a calyx and that the collecting system was filled with thrombus. A wire was placed through the existing 10 Serbian tube and it was removed. No active bleeding was observed. A larger 12 Serbian catheter was advanced over the wire and the [place] loop was formed in the renal pelvis. [...] 0 Prolene. Pre-existing genitourinary catheter: 10 F [employer] nephrostomy Genitourinary catheter(s) placed: 12 F [employer] nephrostomy External catheter securement: Non-absorbable suture Estimated blood loss (mL): Less than 10 Number and Type of Removed Specimens: 0 Standardized report: SIR_GUCatheterExchange_v3 Comp (more content not included)...NormalAvon HospitalIron [Mass/volume] in Serum or PlasmaOrdered By: Clara Chew on 58-05-2180Wnaa [Mass/Vol]60 ug/bW99-081GugzbhuklMercer County Community HospitalIron and TIBC Profileon 07-17-2022% Iron Jnxbncxcpo98.0 %Qbg32-31WbkwjjbgjMercer County Community HospitalComment on above: Performed By: #### FE and TIBC ####[address] [place] [address] USAIron [Mass/Vol]60 ug/jEIpzhhf36-192NonwgepoyMercer County Community HospitalComment on above:Performed By: #### FE and TIBC ####[address] [place] [address] USATotal Iron Binding Zuidiqys403 ug/qJCnitnt268-914KbkbbschnMercer County Community Hospital Comment on above:Performed By: #### FE and TIBC ####[address] [place] [address] USATransferrin [Mass/Vol]225 mg/dLNormal 203-362Mercer County Community HospitalComment on above:Result Comment: PERFORMED BY:[address] [place], [place] [phone] MEDICAL MOOSE PINO M.D.Performed By: #### FE and TIBC ####[address] [place] [address] USAIron binding capacity [Mass/volume] in Serum or PlasmaOrdered By: Clara Chew on 48-73-9296Timm binding capacity [Mass/Vol]315 ug/dL 255-450Mercer County Community HospitalIron saturation [Mass Fraction] in Serum or PlasmaOrdered By: Clara Chew on 53-72-9208Gcwo saturation [Mass fraction]19.0 %20-50Mercer County Community HospitalKetones Auto test strip (U) [Mass/Vol]Ordered By: Pedro Drake on 39-43-8376Yoopspj (U) [Mass/Vol]Negative NegativeMercer County Community HospitalLaboratory - CoagulationOrdered By: Pedro Drake on 80-31-8069LL Coag (PPP) [Time]12.2 s9.0-12.9Mer[facility] County Community HospitalLaboratory - UrinalysisOrdered By: Pedro Drake on 57-70-0697Ugurphc casts LM Ql (Urine sed)None seen [LPF]0-8[facility] Leukocytes [#/volume] corrected for nucleated erythrocytes in Blood by Automated counOrdered By: Pedro Drake on 70-16-6656XRI corrected for nucl RBC Auto (Bld) [#/Vol]12.7 10*3/uL4.1-10.5FProMedica Defiance Regional HospitalLymphocytes Auto (Bld) [#/Vol]Ordered By: Pedro Drake on 68-35-0356Tvxtlaqcbzp (Bld) [#/Vol]5.1 10*3/uL1.00-4.8Mer[facility] Community HospitalLymphocytes/100 WBC Auto (Bld) Ordered By: Pedro Drake on 95-46-2083Dltdkzgzbaw/100 WBC (Bld)40.4 %.[facility] HospitalH Auto (RBC) [Entitic mass]Ordered By: Pedro Drake on 93-80-2003ARU (RBC) [Entitic mass]29.6 pg27.5-35.2FProMedica Defiance Regional HospitalMCHC Auto (RBC) [Mass/Vol]Ordered By: Pedro Drake on 96-67-7946INEJ (RBC) [Mass/Vol]31.8 g/dL32.5-35.6FProMedica Defiance Regional HospitalMCV Auto (RBC) [Entitic vol]Ordered By: Pedro Drake on 94-40-8774KBF (RBC) [Entitic vol]93.1 fL 83.5-101Mercer County Community HospitalMacrocytes LM Ql (Bld)Ordered By: Pedro Drake on 77-62-8998Xwlkoomifg Ql (Bld)ModerateMercer County Community Hospital Monocyte distribution width [Entitic volume] in Blood by AutomatedOrdered By: Pedro Drake on 42-98-5688Beygayqv distribution width Auto (Bld) [Entitic vol] 21.81 %0.00-20.00Mer[facility] County Community HospitalComment on above:For adults in ED, MDW > 20.0 may be associated with a higher risk of sepsis during the first 12 hrs of hospital admissionMonocytes Auto (Bld) [#/Vol]Ordered By: Pedro Drake on 65-82-4798Wuoqlvwwo (Bld) [#/Vol]1.3 10*3/uL0.0-0.8Mer[facility] Community HospitalMonocytes/100 WBC Auto (Bld)Ordered By: Pedro Drake on 07-17-2022 Monocytes/100 WBC (Bld)10.3 %.Mer[facility] County Community HospitalNeutrophils Auto (Bld) [#/Vol]Ordered By: Pedro Drake on 67-69-6711Boobjlwcaro (Bld) [#/Vol]5.7 10*3/uL1.8-7.7FProMedica Defiance Regional HospitalNeutrophils/100 WBC Auto (Bld) Ordered By: Pedro Drake on 50-54-5950Bxybuafunwq/100 WBC (Bld)45.2 %.Mer[facility] County Community HospitalNitrite Test strip Ql (U)Ordered By: Pedro Drake on 50-40-8415Xwzsakl Ql (U)NegativeNegativeMercer County Community HospitalNo Panel InformationOrdered By: Pedro Drake on 77-02-3917Hqah seen [LPF]0-8Mer[facility] Community HospitalEstimated GFR (CKD-EPI)13.049 mL/[facility] CampusPharmacy Creatinine Clearance (Chem19.25[facility]12.2 s9.0-12.9[facility]13.049 mL/[facility]19.25[facility] HospitalNo Panel InformationOrdered By: Sonal Márquez on 18-60-4440JXUF Antigen (LFIA)[facility] Community HospitalNucleated erythrocytes [Presence] in Blood by Automated countOrdered By: Pedro Drake on 82-22-7299Hbynloetl RBC Auto Ql (Bld)0.2 /100{WBC}0-0.5FProMedica Defiance Regional HospitalPT EDon 28-77-0298EE EDHNO ID: [id number] Author: Malcom Gallegos RN Service: Nursing Author [...] sedation and tube change REFERRAL (RECOMMENDATION): None OJX Coag (PPP) [Relative time]1.0 {INR}Normal0.9-1.3AAmerican Fork Hospital Comment on above:Order Comment: Specimen Type: BLOOD SPECIMENOrdering Facility: [facility] Address:[address] [place] [address], [place] [address] Result Comment: Vitamin K Antagonist (VKA) Therapeutic Range: INR 2 to 3 (Target INR of 2.5) Note: For patients treated with VKA drugs, such as warfarin, the [place] College of Chest Physicians 2012 Guideline recommends [...] to 3.5 (target INR of 3). Teresa GH, et al. Chest 2012, 141:7S-47S Robin RA et al. [facility] 2017, 70: 252-289Performed By: #### 10949-2 ####[facility] LABORATORYCLIA [id number] [place] [address] [place] [facility] KETTERING HEALTHPT Coag (PPP) [Time]10.9 sNormal9.7-13.0[facility] Comment on above:Order Comment: Specimen Type: BLOOD SPECIMENOrdering Facility: [facility] Address:[address] [place] [address] [place] [id number] Performed By: #### 21892-0 ####[facility] LABORATORYCLIA [id number] [place] [address] [facility] CENTERPartial Thromboplastin Timeon 08-24-2617iIOG Coag (Bld) [Time]30.9 wElikfd84.1-36.5 [facility] Community HospitalComment on above:Result Comment: PERFORMED BY:[facility] [place] [address] [place], [place] [phone] MEDICAL DIRECTORCHRISTO PINO M.D.Performed By: #### CUBLD, PT, CMP, PTT, SCAN CBC ####[facility] [address] [place] [address] USAPlatelet adequacy [Presence] in Blood by Light microscopyOrdered By: Pedro Drake on 00-20-2650Qaupobmnw LM Ql (Bld)NormalPremier HealthPlatelet mean volume Auto (Bld) [Entitic vol]Ordered By: Pedro Drake on 34-10-8010Rloefvrm mean volume (Bld) [Entitic vol]10.0 fL6.6-10.1 [facility] Community HospitalPlatelet morphology finding [Identifier] in BloodOrdered By: Pedro Drake on 80-22-3878Khgpbfok morphology finding Nom (Bld) NormalNoProvidence HospitalPlatelet poor plasma international normalized ratio (INR) by coagulation assay (relatOrdered By: Pedro Drake on 09-84-8376PSG Coag (PPP) [Relative time]1.0 {INR}[facility] Community HospitalComment on above:INR Therapeutic Range A) Pre- and Peroperative OAT started two weeks before surgery. NOT HIP SURGERY: 1.5 - 2.5 HIP SURGERY: 2 - 3B) Primary and secondary prevention of venous THROMBOSIS: 2 - 3C) Active venous thrombosis, pulmonary embolismand prevention of recurrent venous thrombosis: 2 - 3D) Prevention of arterial thromboembolismincluding patients with mechanical heart valves: 3 - 4.5Platelets Auto (Bld) [#/Vol]Ordered By: Pedro Drake on 81-69-0115Roygwdged (Bld) [#/Vol]168 10*3/oX256-024HhvdoawjkMercer County Community HospitalPoikilocytosis [Presence] in Blood by Light microscopyOrdered By: Pedro Drake on 05-61-0928Lvhutsorfhxaxy LM Ql (Bld)SlightMercer County Community HospitalPotassium [Moles/volume] in Serum or PlasmaOrdered By: Pedro Drake on 44-17-8296Gxdstzbdu [Moles/Vol]4.6 mmol/L3.5-5.1FProMedica Defiance Regional HospitalProtein [Mass/volume] in Serum or PlasmaOrdered By: Pedro Drake on 77-73-8545Vjqplqw [Mass/Vol]8.1 g/dL6.4-8.9[facility] Prothrombin Time INRon 31-95-3852UOP Coag (PPP) [Relative time]1.0 {INR}Normal [facility] HospitalComment on above:Result Comment: INR Therapeutic Range A) Pre- and [...] patients with mechanical heart valves: 3 - 4.5Performed By: #### CUBLD, PT, CMP, PTT, SCAN CBC ####[facility] [address] [place] [address] USAPT Coag (PPP) [Time]12.2 s Normal9.0-12.9[facility] HospitalComment on above:Performed By: #### CUBLD, PT, CMP, PTT, SCAN CBC ####[facility] [address] [place] [address] USARBC Auto (Bld) [#/Vol]Ordered By: Pedro Drake on 29-14-2189CMH (Bld) [#/Vol]3.19 10*6/uL3.90-5.60[facility] HospitalRBC morphologyOrdered By: Pedro Drake on 88-15-3245ETN morphology finding Nom (Bld)N/AFMercy Health Anderson Hospitalcan and CBCon 07-17-2022 Anisocytosis Ql (Bld)MarkedNormalMercer County Community HospitalComment on above:Performed By: #### CUBLD, PT, CMP, PTT, SCAN CBC ####[place] [address] USABasophils (Bld) [#/Vol]0.1 10*3/uLNormal0.0-0.2FProMedica Defiance Regional HospitalComment on above:Performed By: #### CUBLD, PT, CMP, PTT, SCAN CBC ####[place] [address] USABasophils/100 WBC (Bld)0.6 %Normal.[facility] HospitalComment on above:Performed By: #### CUBLD, PT, CMP, PTT, SCAN CBC ####[place] [address] USAEosinophils (Bld) [#/Vol]0.4 10*3/uLNormal0.0-0.45[facility] HospitalComment on above:Performed By: #### CUBLD, PT, CMP, PTT, SCAN CBC ####[place] [address] [place] Eosinophils/100 WBC (Bld)3.5 %Normal.[facility] HospitalComment on above:Performed By: #### CUBLD, PT, CMP, PTT, SCAN CBC ####[place] [address] USAErythrocyte distribution width (RBC) [Ratio]16.4 %High12.0-14.8[facility] HospitalComment on above:Performed By: #### CUBLD, PT, CMP, PTT, SCAN CBC ####[place] [address] USAHematocrit (Bld) [Volume fraction]29.7 %Low38.8-50.0[facility] HospitalComment on above: Performed By: #### CUBLD, PT, CMP, PTT, SCAN CBC ####[place] [address] USAHemoglobin (Bld) [Mass/Vol]9.4 g/dLLow 13.0-17.0[facility] HospitalComment on above:Performed By: #### CUBLD, PT, CMP, PTT, SCAN CBC ####[place] [address] USAHypochromasiaModerateNormParkwood HospitalComment on above:Performed By: #### CUBLD, PT, CMP, PTT, SCAN CBC ####[place] [address] [place] Lymphocytes (Bld) [#/Vol]5.1 10*3/uLHigh1.00-4.8[facility] HospitalComment on above:Performed By: #### CUBLD, PT, CMP, PTT, SCAN CBC ####[place] [address] [place] Lymphocytes/100 WBC (Bld)40.4 %Normal.[facility] HospitalComment on above:Performed By: #### CUBLD, PT, CMP, PTT, SCAN CBC ####[place] [address] USAMacrocytosisModerateNoal [facility] HospitalComment on above:Performed By: #### CUBLD, PT, CMP, PTT, SCAN CBC ####[place] [address] USAMCH (RBC) [Entitic mass]29.6 lxQmnzil34.5-35.2FProMedica Defiance Regional HospitalComment on above:Performed By: #### CUBLD, PT, CMP, PTT, SCAN CBC ####[place] [address] USAMCV (RBC) [Entitic vol]93.1 tBTsqqbv02.5-101[facility] HospitalComment on above:Performed By: #### CUBLD, PT, CMP, PTT, SCAN CBC ####[address] [place] [id number] USAMean Corpuscular HGB Conc31.8 g/dLLow32.5-35.6FProMedica Defiance Regional HospitalComment on above:Performed By: #### CUBLD, PT, CMP, PTT, SCAN CBC ####[place] [address] USAMonocytes (Bld) [#/Vol]1.3 10*3/uLHigh0.0-0.8 [facility] HospitalComment on above:Performed By: #### CUBLD, PT, CMP, PTT, SCAN CBC ####[place] [address] USAMonocytes/100 WBC (Bld)21.81 %High0.00-20.00[facility] HospitalComment on above:Result Comment: For adults in ED, MDW > 20.0 may be associated with a higher risk of sepsis during the first 12 hrs of hospital admissionPerformed By: #### CUBLD, PT, CMP, PTT, SCAN CBC ####[place] [id number] USAMonocytes/100 WBC (Bld)10.3 % Normal.[facility] HospitalComment on above:Performed By: #### CUBLD, PT, CMP, PTT, SCAN CBC ####[place] [address] USANeutrophils (Bld) [#/Vol]5.7 10*3/uLNormal1.8-7.7 [facility] HospitalComment on above:Performed By: #### CUBLD, PT, CMP, PTT, SCAN CBC ####[place] [id number] USANeutrophils/100 WBC (Bld)45.2 %Normal.[facility] HospitalComment on above:Performed By: #### CUBLD, PT, CMP, PTT, SCAN CBC ####[address] [address] USANRBC% 0.2 /100{WBC}Normal0-0.5FProMedica Defiance Regional HospitalComment on above: Performed By: #### CUBLD, PT, CMP, PTT, SCAN CBC ####[address] [address] USAPlatelet EstimateNormalNormalNormal [facility] HospitalComment on above:Performed By: #### CUBLD, PT, CMP, PTT, SCAN CBC ####[address] [address] USAPlatelet mean volume (Bld) [Entitic vol]10.0 fLNormal6.6-10.1 [facility] HospitalComment on above:Performed By: #### CUBLD, PT, CMP, PTT, SCAN CBC ####[place] [id number] USAPlatelet MorphologyNormalNormalNormalMercer County Community HospitalComment on above:Result Comment: PERFORMED BY:[address] [place], [place] [phone] MEDICAL DIRECTORCHRISTO PINO M.D.Performed By: #### CUBLD, PT, CMP, PTT, SCAN CBC ####[address] [address] [place] Platelets (Bld) [#/Vol]168 10*3/uZRnoxmd117-768EfngzjjvqMercer County Community Hospital Comment on above:Performed By: #### CUBLD, PT, CMP, PTT, SCAN CBC ####[address] [address] USAPoikilocytosisSlight NormalMercer County Community HospitalComment on above:Performed By: #### CUBLD, PT, CMP, PTT, SCAN CBC ####[address] [address] USARBC (Bld) [#/Vol]3.19 10*6/uLLow3.90-5.60[facility] HospitalComment on above:Performed By: #### CUBLD, PT, CMP, PTT, SCAN CBC ####[address] [place] [address] USASchistocytesSlightPremier HealthComment on above: Performed By: #### CUBLD, PT, CMP, PTT, SCAN CBC ####[address] [place] [address] USATarget CellsModerateNoProvidence HospitalComment on above:Performed By: #### CUBLD, PT, CMP, PTT, SCAN CBC ####[address] [place] [address] USAWBC (Bld) [#/Vol]12.7 10*3/uLHigh4.1-10.5FProMedica Defiance Regional Hospital Comment on above:Performed By: #### CUBLD, PT, CMP, PTT, SCAN CBC ####[address] [address] USASchistocytes [Presence] in Blood by Light microscopyOrdered By: Pedro Drake on 07-17-2022 Schistocytes LM Ql (Bld)SlightBarnesville Hospitalerum or plasma albumin/globulin mass ratioOrdered By: Pedro Drake on 49-32-6587Ojshbyn/Globulin [Mass ratio]0.7 {ratio}Barnesville Hospitalerum or plasma anion gap determinationOrdered By: Pedro Drake on 88-86-4497Xrczu gap [Moles/Vol]12.4 mmol/L6.0-15.0Barnesville Hospitalodium [Moles/volume] in Serum or PlasmaOrdered By: Pedro Drake on 52-76-6566Rmhptn [Moles/Vol]135 mmol/A420-282 Barnesville Hospitalofia Ag Negativeon 74-57-5222Kisrz Ag Negative NegativeNormalNegativeMercer County Community HospitalComment on above:Result Comment: This is a duplicate Leena SARS Antigen (KATHLEEN) result to be used for statistical tracking purpose only.PERFORMED BY:[address] [address] [address] [place], [place] [phone] MEDICAL DIRECTORCHRISTO PINO M.D.Performed By: #### SPENSER CARRION-19 LEENA ####[facility] [address] [place] [address] [facility] Specific gravity Auto test strip (U) [Rel density]Ordered By: Pedro Drake on 84-82-4025Ehyrqjfy gravity (U) [Rel density]1.0121.001-1.030Barnesville Hospitalquamous epithelial cells detection in urine sediment by light microscopyOrdered By: Pedro Drake on 44-01-5828Kqmwnbxdix cells.squamous LM Ql (Urine sed)None seen [HPF]0-2FProMedica Defiance Regional HospitalTarget cells Ordered By: Pedro Drake on 51-99-8391Jtafjg cells LM Ql (Bld)ModerateMercer County Community HospitalTransferrin [Mass/volume] in Serum or PlasmaOrdered By: Clara Chew on 92-99-5677Lwccvzczniu [Mass/Vol]225 mg/nL662-213SdpvssmpwMercer County Community HospitalUrea nitrogen [Mass/volume] in Serum or PlasmaOrdered By: Pedro Drake on 64-95-2958Kjuy nitrogen [Mass/Vol]71 mg/dL7-25[facility] HospitalUrine bacteria detection by automated methodOrdered By: Pedro Drake on 17-44-7837Vqslufdk Auto Ql (U)None seenNone SeenMercer County Community HospitalUrine clarity by refractometry automatedOrdered By: Pedro Drake on 31-25-5285Cwbgfca Refractometry automated (U)ClearCleAshtabula County Medical CenterUrine glucose measurement by automated test strip (mass/volume) Ordered By: Pedro Drake on 68-78-3045Bolmcjc Auto test strip (U) [Mass/Vol]Normal mg/dLNormalMercer County Community HospitalUrine hemoglobin detection by automated test stripOrdered By: Pedro Drake on 75-28-4457Midxhunaqv Auto test strip Ql (U)NegativeNegSt. Rita's HospitalUrine leukocyte esterase detection by automated test stripOrdered By: Pedro Drake on 07-17-2022 Leukocyte esterase Auto test strip Ql (U)NegativeNegSt. Rita's HospitalUrine pH measurement by automated test stripOrdered By: Pedro Drake on 56-22-2626cF (U)5.5 [pH]5.0-9.0[facility] HospitalComment on above:Order Comment: Name Collection Type:: Clean-Voided MidstreamPerformed By: #### ADDONUAPLUS ####[facility] [place] [address] USAUrine protein measurement by automated test strip (mass/volume)Ordered By: Pedro Drake on 47-94-8762Yvptxvw (U) [Mass/Vol]100 mg/dLNegativeMercer County Community HospitalComment on above:Order Comment: Name Collection Type:: Clean-Voided MidstreamPerformed By: #### ADDONUAPLUS ####[place] [address] [place] [id number] USAUrobilinogen Auto test strip (U) [Mass/Vol]Ordered By: Pedro Drake on 31-50-4869Lgkxcrynucwo (U) [Mass/Vol] Normal mg/dLNormalMercer County Community HospitalWBC Auto (Bld) [#/Vol]Ordered By: Pedro Drake on 49-36-8662GDH (Bld) [#/Vol]12.7 10*3/uL4.1-10.5FProMedica Defiance Regional HospitalAlanine aminotransferase [Enzymatic activity/volume] in Serum or PlasmaOrdered By: Maye Bunting on 70-01-8799KYR [Catalytic activity/Vol]16 U/L7-52Mer[facility] HospitalAlbumin [Mass/volume] in Serum or Plasma by Bromocresol green (BCG) dye binding methoOrdered By: Maye Bunting on 38-96-9043Jknbluo BCG dye [Mass/Vol]3.8 g/dL3.5-5.7FProMedica Defiance Regional HospitalAlkaline phosphatase [Enzymatic activity/volume] in Serum or PlasmaOrdered By: Maye Bunting on 60-33-7740JQG [Catalytic activity/Vol]123 U/F67-933OjytssdeyMercer County Community HospitalAspartate aminotransferase [Enzymatic activity/volume] in Serum or PlasmaOrdered By: Maye Bunting on 46-40-7881AOB [Catalytic activity/Vol]32 U/H79-08AalonajwaMercer County Community HospitalBasophils Auto (Bld) [#/Vol]Ordered By: Maye Bunting on 89-63-1472Adelybnjm (Bld) [#/Vol]0.1 10*3/uL0.0-0.2FProMedica Defiance Regional HospitalBasophils/100 WBC Auto (Bld)Ordered By: Maye Bunting on 61-35-9842Xiywuqkah/100 WBC (Bld)0.6 %. [facility] Community HospitalBilirubin.total [Mass/volume] in Serum or PlasmaOrdered By: Maye Bunting on 09-82-4324Tqllowcrg [Mass/Vol]0.3 mg/dL 0.3-1.0[facility] HospitalCalcium [Mass/volume] in Serum or Plasma Ordered By: Maye Bunting on 92-43-1839Yccbkpp [Mass/Vol]8.8 mg/dL8.6-10.3 [facility] HospitalCarbon dioxide, total [Moles/volume] in Serum or PlasmaOrdered By: Maye Bunting on 42-91-6711VV2 [Moles/Vol]23.5 mmol/L 21.0-31.0[facility] HospitalChloride [Moles/volume] in Serum or PlasmaOrdered By: Maye Bunting on 75-32-3629Rrlcmclg [Moles/Vol]104 mmol/L 98-107Mer[facility] Community HospitalComplete Blood Count Auto Diffon 89-72-6402Ypvfywbgp (Bld) [#/Vol]0.1 10*3/uLNormal0.0-0.2FProMedica Defiance Regional HospitalComment on above:Result Comment: PERFORMED BY:[address] [place], [place] [phone] MEDICAL DIRECTORCHRISTO PINO M.D.Performed By: #### CBC, CMP ####[facility] [address] [place] [address] USABasophils/100 WBC (Bld)0.6 % Normal.[facility] HospitalComment on above:Performed By: #### CBC, CMP ####[address] [place] [address] [place] Eosinophils (Bld) [#/Vol]0.5 10*3/uLHigh0.0-0.45[facility] HospitalComment on above:Performed By: #### CBC, CMP ####[place] [id number] USAEosinophils/100 WBC (Bld)4.5 % Normal.[facility] Community HospitalComment on above:Performed By: #### CBC, CMP ####[place] [address] [place] Erythrocyte distribution width (RBC) [Ratio]16.6 %High12.0-14.8[facility] Community HospitalComment on above:Performed By: #### CBC, CMP ####[address] Hematocrit (Bld) [Volume fraction]32.7 %Low38.8-50.0[facility] Community HospitalComment on above:Performed By: #### CBC, CMP ####[place] [address] USAHemoglobin (Bld) [Mass/Vol] 10.4 g/dLLow13.0-17.0[facility] Community HospitalComment on above:Performed By: #### CBC, CMP ####[place] [address] USALymphocytes (Bld) [#/Vol]4.7 10*3/uLNormal1.00-4.8[facility] HospitalComment on above:Performed By: #### CBC, CMP ####[place] [id number] USALymphocytes/100 WBC (Bld)41.1 %Normal.[facility] Community HospitalComment on above:Performed By: #### CBC, CMP ####[place] [address] USAMCH (RBC) [Entitic mass]30.5 yeXyhedm79.5-35.2FProMedica Defiance Regional HospitalComment on above:Performed By: #### CBC, CMP ####[address] [place] [address] USAMCV (RBC) [Entitic vol]96.1 lVTuqjru02.5-101Mer[facility] Community HospitalComment on above: Performed By: #### CBC, CMP ####[address] [address] USAMean Corpuscular HGB Conc31.8 g/dLLow32.5-35.6 [facility] HospitalComment on above:Performed By: #### CBC, CMP ####[address] [address] [place] Monocytes (Bld) [#/Vol]1.3 10*3/uLHigh0.0-0.8[facility] Comment on above:Performed By: #### CBC, CMP ####[address] [address] USAMonocytes/100 WBC (Bld)11.1 %Normal. [facility] Community HospitalComment on above:Performed By: #### CBC, CMP ####[address] [address] [place] Neutrophils (Bld) [#/Vol]4.9 10*3/uLNormal1.8-7.7FProMedica Defiance Regional HospitalComment on above:Performed By: #### CBC, CMP ####[address] [address] USANeutrophils/100 WBC (Bld)42.7 %Normal.[facility] Community HospitalComment on above:Performed By: #### CBC, CMP ####[address] [address] USANRBC%0.3 /100{WBC}Normal0-0.5FProMedica Defiance Regional HospitalComment on above:Performed By: #### CBC, CMP ####[address] [address] USAPlatelet mean volume (Bld) [Entitic vol]9.7 fLNormal 6.6-10.1FProMedica Defiance Regional HospitalComment on above:Performed By: #### CBC, CMP ####[address] [address] USAPlatelets (Bld) [#/Vol]205 10*3/aBMmxexz112-182XeguqfgxhMercer County Community HospitalComment on above:Performed By: #### CBC, CMP ####[address] [address] USARBC (Bld) [#/Vol]3.40 10*6/uL Low3.90-5.60[facility] Community HospitalComment on above:Performed By: #### CBC, CMP ####[address] [address] USAWBC (Bld) [#/Vol]11.4 10*3/uLHigh4.1-10.5FProMedica Defiance Regional Hospital Comment on above:Performed By: #### CBC, CMP ####[address] [address] USAComprehensive Metabolic Panelon 06-55-9737Ofpcwvo [Mass/Vol]3.8 g/dLNormal3.5-5.7FProMedica Defiance Regional HospitalComment on above:Performed By: #### CBC, CMP ####[address] [address] USAAlbumin/Globulin [Mass ratio] 0.8 {ratio}NormalMercer County Community HospitalComment on above:Performed By: #### CBC, CMP ####[address] [address] USAALP [Catalytic activity/Vol]123 U/IWepq56-196GtrgdtdwuMercer County Community HospitalComment on above:Result Comment: PERFORMED BY:[address] [address] [place], [place] [phone] MEDICAL DIRECTORCHRISTO PINO M.D.Performed By: #### CBC, CMP ####[address] [address] USAALT [Catalytic activity/Vol]16 U/LNormal7-52[facility] Community HospitalComment on above:Performed By: #### CBC, CMP ####[facility] [place] [address] USAAnion gap [Moles/Vol]Not performedNormal6.0-15.0[facility] HospitalComment on above:Performed By: #### CBC, CMP ####[address] [place] [address] USAAST [Catalytic activity/Vol]32 U/PMrimnc78-72KzqaycgayMercer County Community HospitalComment on above: Performed By: #### CBC, CMP ####[address] [place] [address] USABilirubin [Mass/Vol]0.3 mg/dLNormal0.3-1.0[facility] HospitalComment on above:Performed By: #### CBC, CMP ####[address] [address] USACalcium [Mass/Vol]8.8 mg/dLNormal8.6-10.3FProMedica Defiance Regional HospitalComment on above:Performed By: #### CBC, CMP ####[address] [address] USAChloride [Moles/Vol]104 mmol/UBdgjek39-601UnbfudovdMercer County Community HospitalComment on above:Performed By: #### CBC, CMP ####[address] [address] USACO2 [Moles/Vol]23.5 mmol/SPoshao23.0-31.0[facility] HospitalComment on above:Performed By: #### CBC, CMP ####[address] [address] USACreatinine [Mass/Vol]4.52 mg/dLHigh0.70-1.30 [facility] HospitalComment on above:Performed By: #### CBC, CMP ####[address] [address] [place] GFR/1.73 sq M.predicted MDRD (S/P/Bld) [Vol rate/Area]13.084 mL/min/{1.73_m2} NormalMercer County Community HospitalComment on above:Performed By: #### CBC, CMP ####[place] [id number] [place] Globulin (S) [Mass/Vol]4.8 g/dLNormalMercer County Community HospitalComment on above:Performed By: #### CBC, CMP ####[place] [address] USAGlucose [Mass/Vol]151 mg/hNLqgu44-261WjxmhcdxiMercer County Community HospitalComment on above:Result Comment: Random Glucose Reference Range is dependent on time and content of last meal. Glucose of more than 200 mg/dL in a nonstressed, ambulatory subject supports the diagnosis of Diabetes Mellitus. ADA recommended reference rangePerformed By: #### CBC, CMP ####[place] [address] [place] Potassium [Moles/Vol]Not performedNormal3.5-5.1FProMedica Defiance Regional Hospital Comment on above:Result Comment: Hemolysis is present at a level that could interfere with the result.Performed By: #### CBC, CMP ####[place] [id number] USAProtein [Mass/Vol]8.6 g/dL Normal6.4-8.9[facility] Community HospitalComment on above:Performed By: #### CBC, CMP ####[place] [id number] USASodium [Moles/Vol]136 mmol/VWropih230-060AczjwyuxnMercer County Community HospitalComment on above:Performed By: #### CBC, CMP ####[place] [id number] USAUrea nitrogen [Mass/Vol]57 mg/dLHigh7-25[facility] HospitalComment on above:Performed By: #### CBC, CMP ####[place] [id number] USACreatinine [Mass/volume] in Serum or PlasmaOrdered By: Maye Bunting on 94-27-9174Ulseljoqeg [Mass/Vol]4.52 mg/dL0.70-1.30[facility] Community HospitalEosinophils Auto (Bld) [#/Vol]Ordered By: Maye Bunting on 07-04-2022 Eosinophils (Bld) [#/Vol]0.5 10*3/uL0.0-0.45[facility] Eosinophils/100 WBC Auto (Bld)Ordered By: Maye Bunting on 07-04-2022 Eosinophils/100 WBC (Bld)4.5 %.Mer[facility] Community HospitalErythrocyte distribution width Auto (RBC) [Ratio]Ordered By: Maye Bunting on 07-04-2022 Erythrocyte distribution width (RBC) [Ratio]16.6 %12.0-14.8[facility] Community HospitalGlobulin Calc (S) [Mass/Vol]Ordered By: [facility] on 73-80-2486Vzypmtkg (S) [Mass/Vol]4.8 g/dLMercer County Community Hospital Glucose [Mass/volume] in Serum or PlasmaOrdered By: Maye Bunting on 07-04-2022 Glucose [Mass/Vol]151 mg/xB71-098OqpctlzvsMercer County Community HospitalComment on above:ADA recommended reference rangeRandom Glucose Reference Range is dependent on time and content of last meal. Glucose of more than 200 mg/dL in a nonstressed, ambulatory subject supports the diagnosisof Diabetes Mellitus. Hematocrit Auto (Bld) [Volume fraction]Ordered By: Maye Bunrina on 07-04-2022 Hematocrit (Bld) [Volume fraction]32.7 %38.8-50.0[facility] Community HospitalHemoglobin [Mass/volume] in BloodOrdered By: Maye Bunting on 07-04-2022 Hemoglobin (Bld) [Mass/Vol]10.4 g/dL13.0-17.0[facility] Leukocytes [#/volume] corrected for nucleated erythrocytes in Blood by Automated counOrdered By: Maye Bunting on 07-76-1710OAH corrected for nucl RBC Auto (Bld) [#/Vol]11.4 10*3/uL4.1-10.5FProMedica Defiance Regional HospitalLymphocytes Auto (Bld) [#/Vol]Ordered By: Maye Bunting on 61-76-4324Zjhddluwwtr (Bld) [#/Vol]4.7 10*3/uL1.00-4.8[facility] Community HospitalLymphocytes/100 WBC Auto (Bld)Ordered By: Maye Bunting on 36-82-1875Atsjfzfypil/100 WBC (Bld)41.1 %.[facility] Community HospitalMCH Auto (RBC) [Entitic mass]Ordered By: Maye Bunting on 25-31-5551MGP (RBC) [Entitic mass]30.5 pg27.5-35.2FProMedica Defiance Regional HospitalMCHC Auto (RBC) [Mass/Vol]Ordered By: Maye Bunting on 39-34-1553LSLG (RBC) [Mass/Vol]31.8 g/dL32.5-35.6FProMedica Defiance Regional HospitalMCV Auto (RBC) [Entitic vol]Ordered By: Maye Bunting on 38-74-6723TNY (RBC) [Entitic vol]96.1 fL83.5-101[facility] Community HospitalMonocytes Auto (Bld) [#/Vol]Ordered By: Maye Bunting on 69-11-8672Amvpueoxs (Bld) [#/Vol]1.3 10*3/uL0.0-0.8[facility] Community HospitalMonocytes/100 WBC Auto (Bld)Ordered By: Maye Bunting on 28-37-6392Brblgddep/100 WBC (Bld)11.1 %. [facility] Community HospitalNeutrophils Auto (Bld) [#/Vol]Ordered By: Maye Bunting on 58-06-0499Iuwpcmjfyvh (Bld) [#/Vol]4.9 10*3/uL1.8-7.7FProMedica Defiance Regional HospitalNeutrophils/100 WBC Auto (Bld)Ordered By: Maye Bunting on 35-54-1830Polcgzumpqv/100 WBC (Bld)42.7 %.[facility] No Panel InformationOrdered By: Maye Bunting on 07-29-6506Obobeptwd GFR (CKD-EPI)13.084 mL/MinMercer County Community HospitalPharmacy Creatinine Clearance (ChemN/[facility]13.084 mL/[facility] CampusN/[facility] CenterNucleated erythrocytes [Presence] in Blood by Automated countOrdered By: Maye Bunting on 39-12-1843Szgctwryy RBC Auto Ql (Bld)0.3 /100{WBC}0-0.5FProMedica Defiance Regional HospitalPlatelet mean volume Auto (Bld) [Entitic vol]Ordered By: Maye Bunting on 81-56-1585Nfuwokfg mean volume (Bld) [Entitic vol]9.7 fL6.6-10.1 [facility] Community HospitalPlatelets Auto (Bld) [#/Vol]Ordered By: Maye Bunting on 74-77-5628Kahzycnjp (Bld) [#/Vol]205 10*3/yW331-092QojryijafMercer County Community HospitalPotassium [Moles/volume] in Serum or PlasmaOrdered By: Maye Bunting on 75-18-1049Pdbtntvwe [Moles/Vol][facility] Comment on above:Test not performedHemolysis is present at a level that could interfere with the result.Protein [Mass/volume] in Serum or PlasmaOrdered By: Maye Bunting on 20-08-6622Pwcibdn [Mass/Vol]8.6 g/dL6.4-8.9[facility] Community HospitalRBC Auto (Bld) [#/Vol]Ordered By: Maye Bunting on 19-86-3074ZAS (Bld) [#/Vol]3.40 10*6/uL3.90-5.60Barnesville Hospitalerum or plasma albumin/globulin mass ratioOrdered By: Maye Bunting on 07-04-2022 Albumin/Globulin [Mass ratio]0.8 {ratio}[facility]ville Hospitalerum or plasma anion gap determinationOrdered By: Maye Bunting on 11-33-5440Pvbnd gap [Moles/Vol][facility] HospitalComment on above:Test not performedSodium [Moles/volume] in Serum or PlasmaOrdered By: Maye Bunting on 97-93-9476Yktvty [Moles/Vol]136 mmol/Z526-278MkoewguehMercer County Community Hospital Urea nitrogen [Mass/volume] in Serum or PlasmaOrdered By: Maye Bunting on 24-53-3090Vbqk nitrogen [Mass/Vol]57 mg/dL7-25[facility] WBC Auto (Bld) [#/Vol]Ordered By: Maye Bunting on 80-98-6550JSZ (Bld) [#/Vol] 11.4 10*3/uL4.1-10.5FProMedica Defiance Regional HospitalBRIEF OP NOTon 07-01-2022 BRIEF OP NOTHNO ID: [id number] Author: Riya Arambula MD Service: Radiology Author Type: Physician Type: Brief Op Note Filed: 07/01/2022 1:22 PM Note Text: RADIOLOGY BRIEF PROCEDURE NOTE LOG ID: [id number] Surgery/Procedure Date: 07/01/2022 Incision/Procedure Start Time: 12:44 PM Incision Close/Procedure End Time: 1:04 PM Informed Consent obtained under separate note. ATTENDING RADIOLOGIST: Interventional: Dr. Riya Arambula MULTIPLE SPINDLE ROUTER OPERATOR: None PRE-PROCEDURAL DIAGNOSIS: Left ureteral occlusion ANESTHESIA: Procedural Sedation PROCEDURE: Antegrade attempt to traverse left mid-ureteral occlusion was unsuccessful. New 10 Serbian nephrostomy catheter placed. POST-PROCEDURAL DIAGNOSIS: Same COMPLICATIONS: None ESTIMATED BLOOD LOSS: Minimal INDWELLING DEVICES: [employer] 10 Serbian nephrostomy catheter SPECIMENS: None DISPOSITION: Patient hemodynamically stable, alert and awake. Patient transferred to General PACU for monitoring prior to anticipated discharge. FULL REPORT TO FOLLOW (under the Imaging tab in the Chart Review section) SIGNATURE: Riya Arambula MD PATIENT NAME: Simon Lott DATE: July 01, 2022 TIME: 1:20 PM CONTACT #: [id number] HospitalHISTORY PHYSICALon [id number] PHYSICALHNO ID: [id number] Author: Riya Arambula MD Service: Radiology Author [...] Procedure(s): PERC EXCHANGE NEPHROSTOMY CATH, INCLUDING DIAGNOSTIC NEPHROSTOGRAM/URETEROGRAM WHEN PERFORMED,IMAGING GUIDANCE AND ALL ASSOCIATED RAD [...] Moderate SIGNATURE: Riya Arambula MD PATIENT NAME: Smion Lott DATE: July 01, 2022 TIME: 12:35 [facility] NEPH TUBEon [id number] EXCHANGE NEPH TUBE* * *Final Report* * * DATE OF EXAM: Jul 01 2022 1:00PM [facility]77 - IR EXCHANGE NEPH TUBE / PROCEDURE REASON: Hydronephrosis, unspecified hydronephrosis type [N13.30] * * * * Physician Interpretation * * * * PROCEDURE: GENITOURINARY CATHETER EXCHANGE Procedural Personnel Attending physician(s): Riya Arambula M.D. [employer] Operator: None Pre-procedure diagnosis: Left ureteral occlusion Post-procedure diagnosis: Same Additional clinical history: This is a 72-year-old gentleman with history of left ureterolithiasis and prior failed left ureteral stenting who had a left nephrostomy catheter placed on 05/06/2022. He is referred back to IR today by his urologist, Dr. Kiko Corbett of [facility], for an attempt at internalization (see scanned [...] exchanged for a new nephrostomy catheter. The [place] loop was secured within the renal pelvis and the external portion of the catheter was secured to the skin with 0 Prolene. Pre-existing genitourinary catheter: 10 F [employer] nephrostomy Genitourinary catheter(s) placed: 10 F [employer] nephrostomy Findings: Complete occlusion of the left mid ureter External catheter securement: Non-absorbable suture Estimated blood loss (mL): Trace Number and Type of Removed Specimens: 0 Standardized report: SIR_GUCatheterExchange_v3 Complications There were no immediate complications and no other complications. Conclusion The patient was comfortable and was transferred to the PACU in stable condition. The procedure was performed by the: attending radiologist, without an shipping assistant. The attending radiologist performed the following procedural activities: Entire procedure IMPRESSION: Unsuccessful attempt to traverse the complete occlusion (more content not included)...[facility] PROGon [id number] [facility] ID: [id number] Author: Carol Teresa RN Service: ? Author Type: Registered Nurse Type: Nursing Progress Note Filed: 07/01/2022 11:24 AM Note Text: Spoke with [facility] about meds, pt took plavix and asa today as usual, IR informed, [facility] E[facility] [id number] EDHNO ID: [id number] Author: Theodora Robison RN Service: Radiology Author [...] patient REFERRAL (RECOMMENDATION): None Electronically Signed By: Theodorahellen ChanKnox County HospitalAlanine aminotransferase [Enzymatic activity/volume] in Serum or PlasmaOrdered By: Maye Murray on 89-61-1473DGI [Catalytic activity/Vol]16 U/L7-52[facility] HospitalAlbumin [Mass/volume] in Serum or Plasma by Bromocresol green (BCG) dye binding methoOrdered By: Maye Murray on 55-97-4049Oouqzcy BCG dye [Mass/Vol]3.5 g/dL3.5-5.7FProMedica Defiance Regional HospitalAlkaline phosphatase [Enzymatic activity/volume] in Serum or PlasmaOrdered By: Maye Bunting on 21-94-9754NSC [Catalytic activity/Vol]120 U/N80-544MbtuowdjaMercer County Community HospitalAspartate aminotransferase [Enzymatic activity/volume] in Serum or PlasmaOrdered By: Maye Bunting on 22-40-3616AZX [Catalytic activity/Vol]24 U/L 13-39[facility] HospitalBilirubin.total [Mass/volume] in Serum or PlasmaOrdered By: Maye Bunting on 04-51-9685Opzwzmthc [Mass/Vol]0.3 mg/dL 0.3-1.0[facility] HospitalCalcium [Mass/volume] in Serum or Plasma Ordered By: Maye Bunting on 85-47-3492Mceynuz [Mass/Vol]8.7 mg/dL8.6-10.3 [facility] HospitalCarbon dioxide, total [Moles/volume] in Serum or PlasmaOrdered By: Maye Bunting on 49-99-0678EE1 [Moles/Vol]22.6 mmol/L 21.0-31.0[facility] HospitalChloride [Moles/volume] in Serum or PlasmaOrdered By: Maye Bunting on 91-16-3133Ljttusvs [Moles/Vol]107 mmol/L 98-107[facility] HospitalComprehensive Metabolic Panelon 93-01-9028Ghkvmem [Mass/Vol]3.5 g/dLNormal3.5-5.7FProMedica Defiance Regional HospitalComment on above:Performed By: #### CBCNO, CMP ####[facility] [address] [place], [place] [address]LVAXbgintb/Globulin [Mass ratio] 0.7 {ratio}NormalMercer County Community HospitalComment on above:Performed By: #### CBCNO, CMP ####[facility] [address] [place], [place] [address]QJAFKA [Catalytic activity/Vol]120 U/SHujb14-537ZhigfdbecMercer County Community HospitalComment on above:Result Comment: PERFORMED BY:[facility] [place] [phone] MEDICAL DIRECTORCHRISTO PINO M.D.Performed By: #### KRISTINE, CMP ####[facility] [place] [address]ETZYMD [Catalytic activity/Vol]16 U/LNormal7-52[facility] Community HospitalComment on above:Performed By: #### KRISTINE, CMP ####[facility] [place] [address]EAVVpkjm gap [Moles/Vol]14.1 mmol/LNormal6.0-15.0[facility] Community HospitalComment on above:Performed By: #### KRISTINE, CMP ####[place] [address] continue[facility] at kings [place], [place] [address]SKKYPH [Catalytic activity/Vol]24 U/DBfcazc83-97WqurxvyfbMercer County Community HospitalComment on above:Performed By: #### KRISTINE, CMP ####[facility] [facility] at [facility] [place], [place] [address]YHDIicfdjdlt [Mass/Vol]0.3 mg/dLNormal0.3-1.0[facility] HospitalComment on above:Performed By: #### KRISTINE, CMP ####[facility] [facility] [place], [place] [address]BAMJllmlsj [Mass/Vol]8.7 mg/dL Normal8.6-10.3FProMedica Defiance Regional HospitalComment on above:Performed By: #### KRISTINE, CMP ####[facility] [facility] [place], [place] [address]HITAcmmyidn [Moles/Vol]107 mmol/GZrrkaw70-637WzfxgjjskMercer County Community HospitalComment on above:Performed By: #### KRISTINE, CMP ####[facility] [facility] [place], [place] [address]TTNYP8 [Moles/Vol]22.6 mmol/L Ktbmee04.0-31.0[facility] HospitalComment on above:Performed By: #### KRISTINE, CMP ####[facility] [facility] American HospitalhellenAUMSVILLE, [place] [address]JUVCaqazxergr [Mass/Vol]4.66 mg/dLHigh0.70-1.30[facility] HospitalComment on above:Performed By: #### KRISTINE, CMP ####[address] [place], [place] [address]OIYRAR/1.73 sq M.predicted MDRD (S/P/Bld) [Vol rate/Area]12.613 mL/min/{1.73_m2}Premier HealthComment on above:Performed By: #### KRISTINE, CMP ####[address] [place], [place] [address]LXGHjitijzu (S) [Mass/Vol]4.9 g/dL Premier HealthComment on above:Performed By: #### KRISTINE, CMP ####[address] [address] USAGlucose [Mass/Vol]127 mg/qLVrdr69-589VxonkadmrMercer County Community HospitalComment on above:Result Comment: Random Glucose Reference Range is dependent on time and content of last meal. Glucose of more than 200 mg/dL in a nonstressed, ambulatory subject supports the diagnosis of Diabetes Mellitus. ADA recommended reference rangePerformed By: #### KRISTINE, CMP ####[address] [place], [place] [address]MCCUcfxzjekg [Moles/Vol]5.7 mmol/LHigh 3.5-5.1FProMedica Defiance Regional HospitalComment on above:Performed By: #### KRISTINE, CMP ####[address] [address] USAProtein [Mass/Vol]8.4 g/dLNormal6.4-8.9[facility] Comment on above:Performed By: #### KRISTINE, CMP ####[address] [address]ANMImxcvi [Moles/Vol]138 mmol/LNormal 136-145Mer[facility] Community HospitalComment on above:Performed By: #### KRISTINE, CMP ####[address] [place] [address] USAUrea nitrogen [Mass/Vol]69 mg/dLReynolds Memorial Hospital7-25[facility] Comment on above:Performed By: #### CBCNO, CMP ####[facility] [address] [place], [place] [address]SMIRyuzahntad [Mass/volume] in Serum or PlasmaOrdered By: Maye Bunting on 42-64-2508Jxrfomvyga [Mass/Vol]4.66 mg/dL 0.70-1.30[facility] Community HospitalErythrocyte distribution width Auto (RBC) [Ratio]Ordered By: Maye Bunting on 20-54-8619Cnpccviuvug distribution width (RBC) [Ratio]16.0 %12.0-14.8[facility] Community HospitalGlobulin Calc (S) [Mass/Vol]Ordered By: Maye Bunting on 74-08-5409Uvtxbckl (S) [Mass/Vol] 4.9 g/dLMercer County Community HospitalGlucose [Mass/volume] in Serum or PlasmaOrdered By: Maye Bunting on 67-85-7683Ywwxnvp [Mass/Vol]127 mg/mR26-387 [facility] HospitalComment on above:ADA recommended reference rangeRandom Glucose Reference Range is dependent on time and content of last meal. Glucose of more than 200 mg/dL in a nonstressed, ambulatory subject supports the diagnosisof Diabetes Mellitus.Hematocrit Auto (Bld) [Volume fraction]Ordered By: Maye Bunting on 63-94-5630Zgjlcmaekh (Bld) [Volume fraction]29.8 %38.8-50.0[facility] HospitalHemoglobin [Mass/volume] in BloodOrdered By: Maye Bunting on 64-30-2804Qtszonnohr (Bld) [Mass/Vol]9.8 g/dL13.0-17.0[facility] Community HospitalHemogram CBC Without Diffon 33-06-1010Luejigtsias distribution width (RBC) [Ratio]16.0 %High 12.0-14.8[facility] Community HospitalComment on above:Performed By: #### CBCNO, CMP ####[facility] [place] [address] USAHematocrit (Bld) [Volume fraction]29.8 %Low38.8-50.0[facility] Community HospitalComment on above:Performed By: #### KRISTINE, CMP ####[address] [place], [place] [address]VTYFzcnpapxnb (Bld) [Mass/Vol]9.8 g/dLLow13.0-17.0[facility] HospitalComment on above: Performed By: #### LEFTYNO, CMP ####[address] [address]TKLPSI (RBC) [Entitic mass]31.9 iiUdxhdc09.5-35.2 [facility] HospitalComment on above:Performed By: #### KRISTINE, CMP ####[address] [address]AQHPRO (RBC) [Entitic vol]97.1 oJZhayub47.5-101Mer[facility] Community HospitalComment on above:Performed By: #### KRISTINE, CMP ####[address] [address]SKYXqlh Corpuscular HGB Conc32.8 g/dLNormal 32.5-35.6FProMedica Defiance Regional HospitalComment on above:Performed By: #### KRISTINE, CMP ####[address] [address] USAPlatelet mean volume (Bld) [Entitic vol]10.4 fLHigh6.6-10.1FProMedica Defiance Regional HospitalComment on above:Result Comment: PERFORMED BY:[address] [place], [place] [phone] MEDICAL DIRECTORCHRISTO PINO M.D.Performed By: #### LEFTYNO, CMP ####[address] [address]FPQKowxnfvoh (Bld) [#/Vol]178 10*3/oEUvsjzx914-387ZbssyygqiMercer County Community HospitalComment on above:Performed By: #### CBCNO, CMP ####[address] [address] [place], [place] [address]GITHAY (Bld) [#/Vol]3.07 10*6/uLLow3.90-5.60[facility] HospitalComment on above:Performed By: #### CBCNO, CMP ####[facility] [address] [place], [place] [address]JKQPZM (Bld) [#/Vol]10.5 10*3/uL Normal4.1-10.5FProMedica Defiance Regional HospitalComment on above:Performed By: #### CBCNO, CMP ####[facility] [address] [place], [place] [address]HQTUzaioyuxgp - Chemistry and Chemistry - challengeOrdered By: Maye Bunting on 86-88-1030QKV/1.73 sq M.predicted MDRD (S/P/Bld) [Vol rate/Area] 12.613 mL/min/{1.73_m2}[facility] Community HospitalLeukocytes [#/volume] corrected for nucleated erythrocytes in Blood by Automated counOrdered By: Maye Bunting on 08-09-4705BSG corrected for nucl RBC Auto (Bld) [#/Vol]10.5 10*3/uL4.1-10.5FTwin City HospitalH Auto (RBC) [Entitic mass] Ordered By: Maye Bunting on 47-63-8167ZXS (RBC) [Entitic mass]31.9 pg27.5-35.2 [facility] HospitalMCHC Auto (RBC) [Mass/Vol]Ordered By: Maye Bunting on 85-92-4665SLOZ (RBC) [Mass/Vol]32.8 g/dL32.5-35.6FProMedica Defiance Regional HospitalMCV Auto (RBC) [Entitic vol]Ordered By: Maye Bunting on 09-77-5712SXQ (RBC) [Entitic vol]97.1 fL83.5-101[facility] HospitalNo Panel InformationOrdered By: Maye Bunting on 80-70-9105Rmhdcdnt Creatinine Clearance (ChemN/[facility]12.613[facility] Community HospitalN/[facility] Medical CenterPlatelet mean volume Auto (Bld) [Entitic vol]Ordered By: Maye Bunting on 30-72-3644Hkqomgwp mean volume (Bld) [Entitic vol]10.4 fL6.6-10.1FProMedica Defiance Regional Hospital Platelets Auto (Bld) [#/Vol]Ordered By: Maye Bunting on 61-66-4835Itvhvqjhm (Bld) [#/Vol]178 10*3/rZ204-775IsoqbvlnzMercer County Community HospitalPotassium [Moles/volume] in Serum or PlasmaOrdered By: Maye Bunting on 06-20-2022 Potassium [Moles/Vol]5.7 mmol/L3.5-5.1FProMedica Defiance Regional HospitalProtein [Mass/volume] in Serum or PlasmaOrdered By: Maye Bunting on 15-22-9607Cztfgtj [Mass/Vol]8.4 g/dL6.4-8.9[facility] HospitalRBC Auto (Bld) [#/Vol] Ordered By: Maye Bunting on 58-46-2612JYL (Bld) [#/Vol]3.07 10*6/uL3.90-5.60 [facility] Hospitalerum or plasma albumin/globulin mass ratio Ordered By: Maye Bunting on 79-87-0857Latyuae/Globulin [Mass ratio]0.7 {ratio} [facility] Hospitalerum or plasma anion gap determinationOrdered By: Maye Bunting on 20-97-1972Akyws gap [Moles/Vol]14.1 mmol/L6.0-15.0 [facility] Hospitalodium [Moles/volume] in Serum or PlasmaOrdered By: Maye Bunting on 49-03-1079Osynny [Moles/Vol]138 mmol/D766-264BsforpzyyMercer County Community HospitalUrea nitrogen [Mass/volume] in Serum or PlasmaOrdered By: Maye Bunting on 58-34-0319Fgwb nitrogen [Mass/Vol]69 mg/dL7-25[facility] Community HospitalBacteria Ur Culton 54-83-4507Potjvenm identified Cx Nom (U)ORGANISM ID: 1 10,000 -<50,000 CFU/ml Proteus mirabilis [...] Susceptible <=32 , Intermediate >32 , Resistant >64The Medical CenterComment on above:Performed By: #### 41226-4 #### [facility] CLIA [id number] [address] [place] [address] [place] AMERICABasic metabolic 2000 panelon 05-06-2022 Anion gap [Moles/Vol]8 mmol/LLow9-18[facility] HospitalComment on above:Order Comment: Specimen Type: BLOOD SPECIMEN Ordering Facility: [facility] Address: [address] [place], [place] [address]Performed By: #### 38151-1 #### [facility] [place] [id number] [address] [place] [address] [place] AMERICACalcium [Mass/Vol]9.0 mg/dLNormal8.5-10.2 [facility] HospitalComment on above:Order Comment: Specimen Type: BLOOD SPECIMEN Ordering Facility: [facility] Address: [address] [place], [place] [address]Performed By: #### 41894-5 #### [facility] IA [id number] [address] [place] [address] [place] AMERICAChloride [Moles/Vol]106 mmol/VSfaf43-852 [facility] HospitalComment on above:Order Comment: Specimen Type: BLOOD SPECIMEN Ordering Facility: [facility] Address: [address] [place], [place] [address]Performed By: #### 94903-6 #### [facility] IA [id number] [address] [place] [address] [place] AMERICACO2 [Moles/Vol]20 mmol/LJlk35-30Kcqm HospitalComment on above:Order Comment: Specimen Type: BLOOD SPECIMEN Ordering Facility: [facility] Address: [address] [place], [place] [address]Performed By: #### 05652-4 #### [facility] [place] [id number] [place] [address] [place] AMERICACreatinine [Mass/Vol]4.54 mg/dLHigh 0.73-1.22[facility] HospitalComment on above:Order Comment: Specimen Type: BLOOD SPECIMEN Ordering Facility: [facility] Address: [address] [place], [place] [address]Performed By: #### 71195-6 #### [facility] CLIA [id number] [address] [place] [address] [place] AMERICAESTIMATED GLOMERULAR FILTRATION RATE13 mL/min/1.73m???Low>=60Av HospitalComment on above:Order Comment: Specimen Type: BLOOD SPECIMEN Ordering Facility: [facility] Address: [address] [place], [place] [address]Result Comment: Estimated Glomerular Filtration Rate (eGFR) is calculated using the 2020 CKD-EPI cre atinine equation. This equation utilizes serum creatinine, sex, and age as parameters. The creatinine assay has traceable calibration to isotope dilution- mass spectrometry. Refer to KDIGO guidelines for clinical interpretation. In patients with unstable renal function, e.g. those with acute kidney injury, the eGFR may not accurately reflect actual GFR.Performed By: #### 09083-3 #### [facility] CLIA [id number] [address] [place] [address] [place] AMERICAGlucose [Mass/Vol]85 mg/uKWqlasm96-74Fnjf HospitalComment on above:Order Comment: Specimen Type: BLOOD SPECIMEN Ordering Facility: [facility] Address: [address] [place], [place] [address]Result Comment: The [place] Diabetes Association (ADA) provides guidance for cutoff [...] Standards of Medical Care in Diabetes 2016, [place] Diabetes Association. Diabetes Care. 2016.39(Suppl 1).Performed By: #### 90362-7 #### [facility] CLIA [id number] [address] [place] [address] [place] AMERICAPotassium [Moles/Vol]6.4 mmol/LCritically high3.7-5.1Avo HospitalComment on above:Order Comment: Specimen Type: BLOOD SPECIMEN Ordering Facility: [facility] Address: [address] [place], [place] [address]Performed By: #### 85485-8 #### [facility] IA [id number] [address] [place] [address] [place] AMERICASodium [Moles/Vol]134 mmol/KQhx619-207 [facility] HospitalComment on above:Order Comment: Specimen Type: BLOOD SPECIMEN Ordering Facility: [facility] Address: [address] [place], [place] [address]Performed By: #### 44035-7 #### [facility] IA [id number] [place] [address] [place] AMERICAUrea nitrogen [Mass/Vol]74 mg/dLHigh9-24 [facility] HospitalComment on above:Order Comment: Specimen Type: BLOOD SPECIMEN Ordering Facility: [facility] Address: [address] [place], [place] [address]Performed By: #### 02481-6 #### [facility] IA [id number] [place] [address] [place] OF AMERICACBC panel Auto (Bld)on 05-06-2022 Erythrocyte distribution width (RBC) [Ratio]18.3 %High11.5-15.0[facility] Comment on above:Order Comment: Specimen Type: BLOOD SPECIMEN Ordering Facility: [facility] Address: [address] [place], [place] [address]Performed By: #### 09612-3 #### [facility] IA [id number] [place] [address] [place] OF AMERICAHematocrit (Bld) [Volume fraction]32.4 % Low39.0-51.0Amboy HospitalComment on above:Order Comment: Specimen Type: BLOOD SPECIMEN Ordering Facility: [facility] Address: [address] [place], [place] [address]Performed By: #### 44030-0 #### [facility] IA [id number] [address] ST[address]ETHemoglobin (Bld) [Mass/Vol]10.5 g/dLLow 13.0-17.0Av HospitalComment on above:Order Comment: Specimen Type: BLOOD SPECIMEN Ordering Facility: [facility] Address: [address] [place], [place] [address]Performed By: #### 16674-1 #### [facility] IA [id number] [place], [place] [address] [facility]H (RBC) [Entitic mass]29.2 pgNormal 26.0-34.0Av HospitalComment on above:Order Comment: Specimen Type: BLOOD SPECIMEN Ordering Facility: [facility] Address: [address] [place], [place] [address]Performed By: #### 14764-9 #### [facility] IA [id number] [place] [id number] [place], [place] [address]HC (RBC) [Mass/Vol]32.4 g/dLNormal 30.5-36.0Av HospitalComment on above:Order Comment: Specimen Type: BLOOD SPECIMEN Ordering Facility: [facility] Address: [address] [place], [place] [address]Performed By: #### 55945-7 #### [facility] [id number] [address] [place] [address] [facility] (RBC) [Entitic vol]90.0 fLNormal 80.0-100.0Av HospitalComment on above:Order Comment: Specimen Type: BLOOD SPECIMEN Ordering Facility: [facility] Address: [address] [place], [place] [address]Performed By: #### 94926-0 #### [facility] IA [id number] [place] [address] [place] OF AMERICANucleated RBC (Bld) [#/Vol]10*3/uLNormal <0.01Av HospitalComment on above:Order Comment: Specimen Type: BLOOD SPECIMEN Ordering Facility: [facility] Address: [address] [place], [place] [address]Performed By: #### 32463-6 #### [facility] CLIA [id number] [facility] [place] [address] UNITED [facility] OF AMERICAPlatelet mean volume (Bld) [Entitic vol] 12.5 fLNormal9.0-12.7Avon HospitalComment on above:Order Comment: Specimen Type: BLOOD SPECIMEN Ordering Facility: [facility] Address: [address] [place], [place] [address]Performed By: #### 00675-1 #### [facility] IA [id number] [facility] [address] [place], [place] [id number] [place], [place] [address]Platelets (Bld) [#/Vol]200 10*3/uLNormal 150-400Av HospitalComment on above:Order Comment: Specimen Type: BLOOD SPECIMEN Ordering Facility: [facility] Address: [address] [place], [place] [address]Result Comment: Results checked and verified.No clot detected.Performed By: #### 44172-7 #### [facility] IA [id number] [facility] [place] [address] UNITED [facility] AMERICARBC (Bld) [#/Vol]3.60 10*6/uLLow4.20-6.00 [facility] HospitalComment on above:Order Comment: Specimen Type: BLOOD SPECIMEN Ordering Facility: [facility] Address: [address] [place], [place] [address]Performed By: #### 49385-6 #### [facility] IA [id number] [address] [facility] [place] [address] [facility] CENTERWBC (Bld) [#/Vol]12.40 10*3/uLHigh 3.70-11.00Amboy HospitalComment on above:Order Comment: Specimen Type: BLOOD SPECIMEN Ordering Facility: [facility] Address: [address], [place] [address]Kdlopeuho By: #### 19445-9 #### [facility] CLIA [id number] [facility] [place] [address] [place] AMERICAHISTORY PHYSICALon [id number] PHYSICALHNO ID: [id number] Author: Alejandro Flores MD Service: Interventional Radiology [...] transferred to [facility] hospital (transferred to clinical abstractor, first time was able to leave message, however thereafter repeatedly disconnected). Have not received call-back despite leaving message on 05/03. PROCEDURE SCHEDULED: Procedure(s): PERC PLACEMENT NEPHROSTOMY CATH,INCLUDING DIAGNOSTIC NEPHROSTOGRAM/URETEROGRAM WHEN PERFORMED,IMAGING GUIDANCE AND ALL ASSOCIATED RAD [...] mouth every 8 hours as needed. Unknown sulfamethoxazole-trimethoprim (BACTRIM DS,SEPTRA DS) 800-160 mg per [...] COMPLEX (B-COMPLEX ORAL) Take by mouth. Unknown PSEUDOEPHEDRINE/ACETAMINOPHEN (CEPACOL SORE THROAT ORAL) Take by [...] systemic disease Provisional Diagnosis (more content not included)...[facility]PH TUBEon [id number] PLACE NEPH TUBE* * *Final Report* * * DATE OF EXAM: May 06 2022 2:38PM [facility] 0[address] - IR PL[address] NEPH [...] patient's facility and being transferred to Urologist's [facility] (transferred to clinical abstractor, first time was able to leave message, however thereafter repeatedly disconnected). Have not received call-back despite leaving message on 05/03. PROCEDURE SUMMARY - Target organ: Unilateral ute kidney - Image-guided placement of genitourinary catheter(s) [...] for analysis. Genitourinary catheter placed: 10 F [employer] nephrostomy Findings: 1. Initial ultrasound showed mild hydronephrosis. 2. Satisfactory positioning of new nephrostomy tube External catheter securement: Non-absorbable suture Additional genitourinary system intervention Genitourinary intervention: None Location of intervention: Not applicable Device used: Not applicable Description of intervention: Not applicable Post-intervention findings: Not applicable Additional Details Additional description of procedure: None Equipment (more content not included)...[facility]ChristinaY[facility] Neeta [id number] [facility] ID: [id number] Author: Mariam Loya RN Service: Nursing Author Type: Registered Nurse Type: Nursing Progress Note Filed: 05/06/2022 4:07 PM Note Text: Other: Spoke with VIOLET Brady at [facility]. Pt to start on Ceftriaxone 1 [...] of urine and pt refusing to stay overnight.[facility] Hospitalon [id number] (AVXRPR) SIMON LOTT ([id number]) 1950 M Date Time Provider Department 05/03/22 MILE BIRMINGHAM AVXRPR During your visit today, we recorded the following information about you: Mile Birmingham RN 05/03/2022 12:12 PM Signed helper marble finisher called [phone] inquiring about patient's procedure today to clarify the plavix was held for five (5) days, as ordered. Jitendra Villanuevalow said patient has been picked up by [...] mouth every 8 hours as needed. - sulfamethoxazole-trimethoprim (BACTRIM DS,SEPTRA DS) 800-160 mg per [...] COMPLEX (B-COMPLEX ORAL) Take by mouth. - PSEUDOEPHEDRINE/ACETAMINOPHEN (CEPACOL SORE THROAT ORAL) Take by [...] 03/25/2017 Encounter Status:Closed by MILE BIRMINGHAM on 05/03/22[facility] HospitalNURSING PROn [id number] PROGHNO ID: [id number] Author: Zahra Garay RN Service: ? Author [...] midght for ttentative rescheduling of procedure for fridayV[facility] [id number] (AVXRPR) SIMON LOTT ([id number]) 1950 M Date Time Provider Department 04/23/22 MATTHEW MAKI During your visit today, we recorded the following information about you: Matthew Maki RN 04/23/2022 2:32 PM Signed You are scheduled for a nephrostomy tube placement on 05/03/2022. You are to arrive at 10:30 am and Report to [facility]: Enter through [address] entrance. Proceed to [...] drawn? Yes. To be drawn in pre-op. Electrical Sign Servicer/Transportation: How will you be arriving for your procedure? Ambulance service. You will need a responsible adult to accompany you to and from the procedure. Your regional driver is required to stay with you until you are taken into the procedure room. Spoke to director of purchasing at [facility] and gave all instructions. Stated patient [...] mouth every 8 hours as needed. - sulfamethoxazole-trimethoprim (BACTRIM DS,SEPTRA DS) 800-160 mg per [...] COMPLEX (B-COMPLEX ORAL) Take by mouth. - PSEUDOEPHEDRINE/ACETAMINOPHEN (CEPACOL SORE THROAT ORAL) Take by [...] 03/25/2017 Encounter Status:Closed by MATTHEW MAKI on 04/23/22[facility] Anisocytosis LM Ql (Bld)Ordered By: ENZO HARGROVE on 29-86-5408Hiojiyvbpggz Ql (Bld)MarkedMercer County Community HospitalBasic Metabolic Panelon 04-09-2022 Anion gap [Moles/Vol]14.8 mmol/LNormal6.0-15.0[facility] Comment on above:Performed By: #### BMP ####[facility] [address] [place] [address] USACalcium [Mass/Vol]8.6 mg/dLNormal8.2-10.2 [facility] Community HospitalComment on above:Performed By: #### BMP ####[facility] [place] [address] [place] Chloride [Moles/Vol]103 mmol/ARyyrij74-861QhveyvpkiMercer County Community Hospital Comment on above:Performed By: #### BMP ####[address] [place] [address] USACO2 [Moles/Vol]21.6 mmol/LLow22.0-30.0 [facility] HospitalComment on above:Performed By: #### BMP ####[address] [place] [address] [facility] Creatinine [Mass/Vol]4.71 mg/dLHigh0.64-1.27[facility] Comment on above:Performed By: #### BMP ####[address] [place] [address] USACreatinine Clr Calc Pevlgraa33.62Noal [facility] County Community HospitalComment on above:Result Comment: PERFORMED BY:[address] [place], [place] [phone] MEDICAL DIRECTORCHRISTO PINO M.D.Performed By: #### BMP ####[address] [place] [address] [place] Estimated GFR ( Ijwptem19BwnnrcPgqrzzbel[address] [place], [place] [address]Comment on above:Result Comment: GFR estimated reference range: According to KDOQI guidelines, <60 ml/min/1.73m2 is sufficient to diagnose a patient with chronic kidney disease.Performed By: #### BMP ####[facility] [place] [address] USAEstimated GFR (Non- Fs45HcsblaKpisgusosPremier HealthComment on above:Performed By: #### BMP ####[address] [place] [address] USAGlucose [Mass/Vol]104 mg/pXLvhu72-694CwzebqbvkMercer County Community HospitalComment on above:Result Comment: Random Glucose Reference Range is dependent on time and content of last meal. Glucose of more than 200 mg/dL in a nonstressed, ambulatory subject supports the diagnosis of Diabetes Mellitus. ADA recommended reference range Performed By: #### BMP ####[address] [place] [address] USAPotassium [Moles/Vol]5.4 mmol/LHigh3.5-5.1FProMedica Defiance Regional HospitalComment on above:Performed By: #### BMP ####[address] [address] USASodium [Moles/Vol]134 mmol/LZxk260-519NggvxdgmoMercer County Community HospitalComment on above:Performed By: #### BMP ####[address] [address] USAUrea nitrogen [Mass/Vol]63 mg/dLHigh9-23[facility] Comment on above:Performed By: #### BMP ####[address] [address] USABasophils Auto (Bld) [#/Vol]Ordered By: ENZO HARGROVE on 72-40-6687Vxgdxjkjc (Bld) [#/Vol]N/[facility] Basophils/100 WBC Auto (Bld)Ordered By: ENZO HARGROVE on 17-59-2143Arbqyhvqp/100 WBC (Bld)/[facility] CenterCreatinine and Glomerular filtration rate.predicted panel (S/P/Bld)Ordered By: ENZO HARGROVE on 04-09-2022 Creatinine [Mass/Vol]4.71 mg/dL0.64-1.27Mercer County Community HospitalDiff and CBCon 90-38-0373Aioqthndbrkj Ql (Bld)MarkedNormalMercer County Community HospitalComment on above:Performed By: #### DIFF CBC ####[address] [address] USAEosinophils/100 WBC (Bld)9 % High1-3FProMedica Defiance Regional HospitalComment on above:Performed By: #### DIFF CBC ####[address] [address] [place] Erythrocyte distribution width (RBC) [Ratio]19.3 %High12.0-14.8Mer[facility] County Community HospitalComment on above:Performed By: #### DIFF CBC ####[address] [address] USAGiant Platelet Tally9 /100{WBC}NormalMercer County Community HospitalComment on above:Performed By: #### DIFF CBC ####[address] [address] USAHematocrit (Bld) [Volume fraction]31.8 %Low38.8-50.0 [facility] Community HospitalComment on above:Performed By: #### DIFF CBC ####[address] [address] [place] Hemoglobin (Bld) [Mass/Vol]10.6 g/dLLow13.0-17.0Mer[facility] County Community HospitalComment on above:Performed By: #### DIFF CBC ####[address] [address] USAHypochromasiaSlightNoSelect Medical Specialty Hospital - CantonComment on above:Performed By: #### DIFF CBC ####[address] [address] USALarge PlateletsModerateNoProvidence HospitalComment on above:Result Comment: PERFORMED BY:[address] [place], [place] [phone] MEDICAL MOOSE PINO M.D.Performed By: #### DIFF CBC ####[address] [address] USALymphocytes/100 WBC (Bld)39 %Peptrq40-84AtjklmxtjMercer County Community HospitalComment on above:Performed By: #### DIFF CBC ####[address] [address] USAMacrocytosisMarkedRegency Hospital ToledoComment on above:Performed By: #### DIFF CBC ####[address] [address] USAMCH (RBC) [Entitic mass]34.3 mcZxnzys61.5-35.2FProMedica Defiance Regional Hospital Comment on above:Performed By: #### DIFF CBC ####[address] [address] [facility]AL[facility]V (RBC) [Entitic vol]102.5 fLHigh 83.5-101Mercer County Community HospitalComment on above:Performed By: #### DIFF CBC ####[address] [address] USAMean Corpuscular HGB Conc33.5 g/uRXkljzu40.5-35.6FProMedica Defiance Regional HospitalComment on above:Performed By: #### DIFF CBC ####[address] USAMonocytes/100 WBC (Bld)5 % Normal2-[address] [place], [place] [address]Comment on above:Performed By: #### DIFF CBC ####[address] [address] USAPlatelet EstimateNormalNormalNormalMercer County Community HospitalComment on above:Performed By: #### DIFF CBC ####[address] [address] USAPlatelet mean volume (Bld) [Entitic vol]10.1 fLNormal6.6-10.1FProMedica Defiance Regional HospitalComment on above:Result Comment: PERFORMED BY:[address] [place], [place] [phone] MEDICAL MOOSE PINO M.D.Performed By: #### DIFF CBC ####[address] [address] USAPlatelets (Bld) [#/Vol]202 10*3/oLYtyfeg014-105AfrrpuytsMercer County Community HospitalComment on above:Performed By: #### DIFF CBC ####[address] [address] USAPolychromasiaSlight Premier HealthComment on above:Performed By: #### DIFF CBC ####[facility] [address] [place] [address] USARBC (Bld) [#/Vol]3.10 10*6/uLLow3.90-5.60[facility] Community HospitalComment on above:Performed By: #### DIFF CBC ####[facility] [place] [address] USAReactive Lymphocytes1 %Normal0-12Mer[facility] County Community HospitalComment on above:Performed By: #### DIFF CBC ####[address] [place] [address] [place] Segmented neutrophils/100 WBC (Bld)46 %Eff28-86LuyyxbewjMercer County Community Hospital Comment on above:Performed By: #### DIFF CBC ####[address] [place] [address] USATarget CellsSlightNormalMercer County Community HospitalComment on above:Performed By: #### DIFF CBC ####[address] [address] USAWBC (Bld) [#/Vol]10.7 10*3/uLHigh4.1-10.5FProMedica Defiance Regional HospitalComment on above:Performed By: #### DIFF CBC ####[address] [address] USAEosinophils Auto (Bld) [#/Vol]Ordered By: ENZO HARGROVE on 31-43-2836Uqkvgnqfsaf (Bld) [#/Vol]N/[facility] CenterEosinophils/100 WBC Auto (Bld)Ordered By: ENZO HARGROVE on 04-09-2022 Eosinophils/100 WBC (Bld)N/[facility] Medical CenterEosinophils/100 WBC Manual cnt (Bld)Ordered By: ENZO HARGROVE on 40-11-4743Gprcnoaziil/100 WBC (Bld)9 %1-3FProMedica Defiance Regional HospitalErythrocyte distribution width Auto (RBC) [Ratio]Ordered By: ENZO HARGROVE on 27-97-2602Vlxwlxwweru distribution width (RBC) [Ratio]19.3 %12.0-14.8Mer[facility] County Community HospitalEstimated glomerular filtration rate (GFR) non- AmericanOrdered By: ENZO HARGROVE on 09-93-3888SUQ/1.73 sq M.predicted among non-blacks MDRD (S/P/Bld) [Vol rate/Area]12 mL/MinMercer County Community HospitalFL urethrocystogram retroon 88-73-5769UV urethrocystogram retroNoProvidence HospitalGiant platelets/100 leukocytes [Ratio] in Blood by Manual countOrdered By: ENZO HARGROVE on 01-47-1058Vnwma platelets/100 WBC Manual cnt (Bld) [Ratio]9 /100{WBC} [facility] County Community HospitalGlucose Glucometer (BldC) [Mass/Vol]Ordered By: Kiko Corbett on 23-40-3655Tvisndy [Mass/Vol]122 mg/dLMercer County Community HospitalComment on above:Random Glucose Reference Range is dependent on time and content of last meal. Glucose of more than 200 mg/dL in a nonstressed, ambulatory subject supports the diagnosis of Diabetes Mellitus.Glucose Poct Glucometerson 12-37-6389Jniazir2Nuo6: Cleaned MeterPremier HealthComment on above:Result Comment: PERFORMED BY:[address] [place], [place] [phone] MEDICAL DIRECTORCHRISTO PINO M.D.Performed By: #### GLULS ####Point of Care testing, Glucose [Mass/Vol]122 mg/dLPremier HealthComment on above:Result Comment: Random Glucose Reference Range is dependent on time and content of last meal. Glucose of more than 200 mg/dL in a nonstressed, ambulatory subject supports the diagnosis of Diabetes Mellitus.Performed By: #### GLULS ####Point of Care testing,Hematocrit Auto (Bld) [Volume fraction] Ordered By: ENZO HARGROVE on 66-34-2211Ggnaoazyna (Bld) [Volume fraction]31.8 % 38.8-50.0Mer[facility] County Community HospitalHemoglobin [Mass/volume] in Blood Ordered By: ENZO HARGROVE on 72-86-4784Qnsfogmoxm (Bld) [Mass/Vol]10.6 g/dL 13.0-17.0Mer[facility] County Community HospitalHypochromia LM Ql (Bld)Ordered By: ENZO HARGROVE on 11-87-0978Qtzpuqcmvuh Ql (Bld)SlightMercer County Community HospitalLeukocytes [#/volume] corrected for nucleated erythrocytes in Blood by Automated counOrdered By: ENZO HARGROVE on 81-27-2639WLH corrected for nucl RBC Auto (Bld) [#/Vol]10.7 10*3/uL4.1-10.5FProMedica Defiance Regional Hospital Lymphocytes Auto (Bld) [#/Vol]Ordered By: ENZO HARGROVE on 98-40-3140Aebasutdbdo (Bld) [#/Vol]N/[facility] CenterLymphocytes/100 WBC Auto (Bld) Ordered By: ENZO HARGROVE on 45-41-0233Fqixxoqkehk/100 WBC (Bld)N/[facility] Medical CenterLymphocytes/100 WBC Manual cnt (Bld)Ordered By: ENZO HARGROVE on 03-96-5059Vjxsmgoqinu/100 WBC (Bld)39 %18-42Mercer County Community HospitalMCH Auto (RBC) [Entitic mass]Ordered By: ENZO HARGROVE on 65-62-5165BDK (RBC) [Entitic mass]34.3 pg27.5-35.2FProMedica Defiance Regional HospitalMCHC Auto (RBC) [Mass/Vol]Ordered By: ENZO HARGROVE on 98-14-2794PTRX (RBC) [Mass/Vol]33.5 g/dL32.5-35.6FProMedica Defiance Regional HospitalMCV Auto (RBC) [Entitic vol]Ordered By: ENZO HARGROVE on 37-02-1894MOP (RBC) [Entitic vol]102.5 fL83.5-101Mercer County Community HospitalMacrocytes LM Ql (Bld) Ordered By: ENZO HARGROVE on 41-04-8263Klwmmnsyyc Ql (Bld)MarkedMercer County Community HospitalMonocytes Auto (Bld) [#/Vol]Ordered By: ENZO HARGROVE on 86-48-1673Uozxjrnei (Bld) [#/Vol]N/[facility] Monocytes/100 WBC Auto (Bld)Ordered By: ENZO HARGROVE on 49-39-4843Rzhxthyur/100 WBC (Bld)N/[facility] CenterMonocytes/100 WBC Manual cnt (Bld) Ordered By: ENZO HARGROVE on 79-97-0949Xgdcfmvdb/100 WBC (Bld)5 %2-11Mer[facility] County Community HospitalNeutrophils Auto (Bld) [#/Vol]Ordered By: ENZO HARGROVE on 81-95-6586Idwebwybxaa (Bld) [#/Vol]N/[facility] Neutrophils/100 WBC Auto (Bld)Ordered By: ENZO HARGROVE on 04-09-2022 Neutrophils/100 WBC (Bld)N/[facility] CenterNo Panel InformationOrdered By: Kiko Corbett on 32-86-5169Pgjsfel Glucose CommentGlu2: cleaned meterMercer County Community HospitalNo Panel InformationOrdered By: ENZO HARGROVE on 34-66-8579Fibqlwwex GFR ()15 mL/MinMercer County Community HospitalComment on above:GFR estimated reference range: According to KDOQI guidelines, <60 ml/min/1.73m2 is sufficient todiagnose a patient with chronic kidney disease.Pharmacy Creatinine Clearance (Chem18.62Mer[facility] County Community HospitalNucleated erythrocytes [Presence] in Blood by Automated countOrdered By: ENZO HARGROVE on 91-57-1064Ngqflognc RBC Auto Ql (Bld)N/A [facility] HospitalPlatelet adequacy [Presence] in Blood by Light microscopyOrdered By: NEZO HARGROVE on 01-58-6205Pokirxbmx LM Ql (Bld)Normal NormalMercer County Community HospitalPlatelet mean volume Auto (Bld) [Entitic vol]Ordered By: ENZO HARGROVE on 73-61-0834Xgroykmh mean volume (Bld) [Entitic vol]10.1 fL6.6-10.1FProMedica Defiance Regional HospitalPlatelet morphology finding [Identifier] in BloodOrdered By: ENZO HARGROVE on 19-57-9220Mmllcljq morphology finding Nom (Bld)N/[facility] Medical CenterPlatelets Auto (Bld) [#/Vol]Ordered By: EZNO HARGROVE on 98-57-9048Kkradurxp (Bld) [#/Vol]202 10*3/uL 150-450Mercer County Community HospitalPlatelets Large [Presence] in Blood by Light microscopyOrdered By: ENZO HARGROVE on 07-71-5389Jabtzkugk Large LM Ql (Bld)ModerateMercer County Community HospitalPolychromasia [Presence] in Blood by Light microscopyOrdered By: ENZO HARGROVE on 96-47-9780Pxienxogittpd LM Ql (Bld)SlightMercer County Community HospitalRBC Auto (Bld) [#/Vol]Ordered By: ENZO HARGROVE on 16-75-1791DGX (Bld) [#/Vol]3.10 10*6/uL3.90-5.60[facility] Community HospitalRBC morphologyOrdered By: ENZO HARGROVE on 01-81-5248IWC morphology finding Nom (Bld)N/[facility] Hospitalegmented neutrophils/100 WBC Manual cnt (Bld)Ordered By: ENZO HARGROVE on 04-09-2022 Segmented neutrophils/100 WBC (Bld)46 %50-70[facility] Serum or plasma anion gap determinationOrdered By: ENZO HARGROVE on 04-09-2022 Anion gap [Moles/Vol]14.8 mmol/L6.0-15.0Barnesville Hospitalerum or plasma calcium measurement (mass/volume)Ordered By: ENZO HARGROVE on 28-59-5736Tufwzeh [Mass/Vol]8.6 mg/dL8.2-10.2FProMedica Defiance Regional Hospital Serum or plasma chloride measurement (moles/volume)Ordered By: ENZO HARGROVE on 21-44-2871Jvsknetl [Moles/Vol]103 mmol/F30-408HzwmzaavoMercer County Community Hospital Serum or plasma glucose measurement (mass/volume)Ordered By: ENZO HARGROVE on 32-23-2486Crbsaxe [Mass/Vol]104 mg/yI15-145BqevntqdjMercer County Community Hospital Comment on above:ADA recommended reference rangeRandom Glucose Reference Range is dependent on time and content of last meal. Glucose of more than 200 mg/dL in a nonstressed, ambulatory subject supports the diagnosisof Diabetes Mellitus. Serum or plasma potassium measurement (moles/volume)Ordered By: ENZO HARGROVE on 90-90-3423Xpdjnxiqq [Moles/Vol]5.4 mmol/L3.5-5.1FMercy Health Anderson Hospitalerum or plasma sodium measurement (moles/volume)Ordered By: ENZO HARGROVE on 58-82-3106Objziv [Moles/Vol]134 mmol/X845-067ZkyufilqaBarnesville Hospitalerum or plasma total carbon dioxide measurement (moles/volume)Ordered By: ENZO HARGROVE on 14-27-1902SQ1 [Moles/Vol]21.6 mmol/L22.0-30.0Barnesville Hospitalerum or plasma urea nitrogen measurement (mass/volume) Ordered By: ENZO HARGROVE on 09-92-3215Agba nitrogen [Mass/Vol]63 mg/dL9-23 [facility] HospitalTarget cellsOrdered By: ENZO HARGROVE on 05-72-1853Dwbzrw cells LM Ql (Bld)Summa HealthVariant lymphocytes/100 WBC Manual cnt (Bld)Ordered By: ENZO HARGROVE on 04-09-2022 Variant lymphocytes/100 WBC (Bld)1 %0-12Mer[facility] County Community HospitalWBC Auto (Bld) [#/Vol]Ordered By: ENZO HARGROVE on 60-75-6812HTS (Bld) [#/Vol]10.7 10*3/uL4.1-10.5FProMedica Defiance Regional HospitalXR KUBon 41-39-7406RC KUBNormal [facility] HospitalDiff and CBCon 60-59-8423Rlcgekkfqm Comments NormalMercer County Community HospitalComment on above:Result Comment: 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 sample was warmed @ 37C in heat block for 1 hr to obtain cbc results and smear for diff count.PERFORMED BY:[facility]111WAYNE HOSPITALCALVIN BRIONESFLOMATON, [place] [phone] MEDICAL DIRECTORCHRISTO PINO M.D.Performed By: #### DIFF CBC ####[facility] [address] [place] [address] USAAnisocytosis Ql (Bld)SlightNormalMercer County Community HospitalComment on above:Performed By: #### DIFF CBC ####[facility] [address] [place] [address] USABasophils/100 WBC (Bld)0 %Normal0-2FProMedica Defiance Regional HospitalComment on above:Performed By: #### DIFF CBC ####[address] [address] [place] Eosinophils/100 WBC (Bld)9 %High1-3FProMedica Defiance Regional HospitalComment on above:Performed By: #### DIFF CBC ####[address] [address] USAErythrocyte distribution width (RBC) [Ratio]18.7 % High12.0-14.8Mer[facility] County Community HospitalComment on above:Performed By: #### DIFF CBC ####[address] [address] USAHematocrit (Bld) [Volume fraction]26.7 %Low38.8-50.0[facility] Community HospitalComment on above:Performed By: #### DIFF CBC ####[address] [address] USAHemoglobin (Bld) [Mass/Vol]8.4 g/dLLow13.0-17.0[facility] Community HospitalComment on above: Performed By: #### DIFF CBC ####[address] [address] USALymphocytes/100 WBC (Bld)29 %Qmidtn25-20NnqrrweiiMercer County Community HospitalComment on above:Performed By: #### DIFF CBC ####[address] [address] USAMCH (RBC) [Entitic mass]29.3 bwXmatgw97.5-35.2FProMedica Defiance Regional Hospital Comment on above:Performed By: #### DIFF CBC ####[address] [address] USAMCV (RBC) [Entitic vol]93.2 fLNormal 83.5-101Mer[facility] County Community HospitalComment on above:Performed By: #### DIFF CBC ####[address] [address] USAMean Corpuscular HGB Conc31.5 g/dLLow32.5-35.6FProMedica Defiance Regional HospitalComment on above:Performed By: #### DIFF CBC ####[address] [address] USAMonocytes/100 WBC (Bld)6 % Normal2-11[facility] Community HospitalComment on above:Performed By: #### DIFF CBC ####[address] [address] USAPlatelet EstimateNormalNormalPremier HealthComment on above:Performed By: #### DIFF CBC ####[address] [address] USAPlatelet mean volume (Bld) [Entitic vol]10.3 fLHigh6.6-10.1FProMedica Defiance Regional HospitalComment on above:Result Comment: PERFORMED BY:[address] [place], [place] [phone] MEDICAL DIRECTORCHRISTO PINO M.D.Performed By: #### DIFF CBC ####[address] [address] USAPlatelet MorphologyNormalNormOhioHealth Arthur G.H. Bing, MD, Cancer CenterComment on above:Result Comment: PERFORMED BY:[address] [place]AMAJOASP[place], [place] [phone] MEDICAL DIRECTORCHRISTO PINO M.D.Performed By: #### DIFF CBC ####[address] [address] USAPlatelets (Bld) [#/Vol]208 10*3/aZEyulrl005-944 [facility] HospitalComment on above:Performed By: #### DIFF CBC ####[address] [address] [place] PoikilocytosisSHighland District HospitalComment on above: Performed By: #### DIFF CBC ####[address] [address] USAPolychromasiaSHighland District HospitalComment on above:Performed By: #### DIFF CBC ####[address] [place] [address] USARBC (Bld) [#/Vol]2.87 10*6/uL Low3.90-5.60[facility] Community HospitalComment on above:Performed By: #### DIFF CBC ####[address] [address] USASchistocytesSHighland District HospitalComment on above: Performed By: #### DIFF CBC ####[address] [address] USASegmented neutrophils/100 WBC (Bld)56 %Jphgtw79-36 [facility] HospitalComment on above:Performed By: #### DIFF CBC ####[address] [address] [place] SpherocytesWright-Patterson Medical CenterComment on above: Performed By: #### DIFF CBC ####[address] [address] USATarget CellsWright-Patterson Medical CenterComment on above:Performed By: #### DIFF CBC ####[address] [address] USAWBC (Bld) [#/Vol]11.1 10*3/uL High4.1-10.5FProMedica Defiance Regional HospitalComment on above:Performed By: #### DIFF CBC ####[address] [address] USAAnisocytosis LM Ql (Bld)Ordered By: Maye Bunting on 55-33-9925Boveoxywmptk Ql (Bld)Summa HealthBasophils Auto (Bld) [#/Vol] Ordered By: Maye Bunting on 77-06-4035Ebhpcaarw (Bld) [#/Vol]N/[facility] CenterBasophils/100 WBC Auto (Bld)Ordered By: Maye Bunting on 22-48-5718Mlykxwjib/100 WBC (Bld)N/[facility] Basophils/100 WBC Manual cnt (Bld)Ordered By: Maye Bunting on 03-21-2022 Basophils/100 WBC (Bld)0 %0-2FProMedica Defiance Regional HospitalEosinophils Auto (Bld) [#/Vol]Ordered By: Maye Bunting on 01-22-5630Xucozksssuk (Bld) [#/Vol] N/[facility] Medical CenterEosinophils/100 WBC Auto (Bld)Ordered By: Maye Bunting on 17-53-6906Ltodunhkobt/100 WBC (Bld)N/[facility] Medical CenterEosinophils/100 WBC Manual cnt (Bld)Ordered By: Maye Bunting on 91-74-2306Vrjexivoety/100 WBC (Bld)9 %1-3FProMedica Defiance Regional Hospital Erythrocyte distribution width Auto (RBC) [Ratio]Ordered By: Maye Bunting on 73-56-0705Vucdxirzica distribution width (RBC) [Ratio]18.7 %12.0-14.8Mer[facility] County Community HospitalHematocrit Auto (Bld) [Volume fraction]Ordered By: Maye Bunting on 26-44-1981Pbzhkjucyc (Bld) [Volume fraction]26.7 %38.8-50.0Mer[facility] Community HospitalHemoglobin [Mass/volume] in BloodOrdered By: Maye Bunting on 56-30-7239Nzhnhaddwl (Bld) [Mass/Vol]8.4 g/dL13.0-17.0[facility] HospitalLeukocytes [#/volume] corrected for nucleated erythrocytes in Blood by Automated counOrdered By: Maye Bunting on 03-21-2022 WBC corrected for nucl RBC Auto (Bld) [#/Vol]11.1 10*3/uL4.1-10.5FProMedica Defiance Regional HospitalLymphocytes Auto (Bld) [#/Vol]Ordered By: Maye Bunting on 69-59-8398Kvjlconpirw (Bld) [#/Vol]N/[facility] Lymphocytes/100 WBC Auto (Bld)Ordered By: Maye Bunting on 03-21-2022 Lymphocytes/100 WBC (Bld)N/[facility] CenterLymphocytes/100 WBC Manual cnt (Bld)Ordered By: Maye Bunting on 14-07-4307Gaawnddmkfu/100 WBC (Bld)29 %18-42[facility] HospitalH Auto (RBC) [Entitic mass] Ordered By: Maye Bunting on 18-18-9398XAL (RBC) [Entitic mass]29.3 pg27.5-35.2 [facility] HospitalHC Auto (RBC) [Mass/Vol]Ordered By: Maye Bunting on 81-07-8331PXPP (RBC) [Mass/Vol]31.5 g/dL32.5-35.6FTwin City HospitalV Auto (RBC) [Entitic vol]Ordered By: Maye Bunting on 92-14-0702ANI (RBC) [Entitic vol]93.2 fL83.5-101[facility] HospitalMonocytes Auto (Bld) [#/Vol]Ordered By: Maye Bunting on 03-21-2022 Monocytes (Bld) [#/Vol]N/[facility] CenterMonocytes/100 WBC Auto (Bld)Ordered By: Maye Bunting on 28-57-4216Ipgsvmqin/100 WBC (Bld)N/A [facility] HospitalMonocytes/100 WBC Manual cnt (Bld)Ordered By: Maye Bunting on 30-83-8298Owxrdzdkm/100 WBC (Bld)6 %2-11[facility] HospitalNeutrophils Auto (Bld) [#/Vol]Ordered By: Maye Bunting on 83-70-9645Durqkjqytbc (Bld) [#/Vol]N/[facility] Neutrophils/100 WBC Auto (Bld)Ordered By: Maye Bunting on 03-21-2022 Neutrophils/100 WBC (Bld)N/[facility] CenterNo Panel InformationOrdered By: Maye Bunting on 27-57-0135NKV CommentSee comment [facility] HospitalComment on above: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 sample was warmed @ 37C in heat block for ~1 hrto obtain cbc results and smear for diff count.Nucleated erythrocytes [Presence] in Blood by Automated countOrdered By: Maye Bunting on 03-21-2022 Nucleated RBC Auto Ql (Bld)N/AFProMedica Defiance Regional HospitalPlatelet adequacy [Presence] in Blood by Light microscopyOrdered By: Maye Bunting on 03-21-2022 Platelets LM Ql (Bld)NormalNoProvidence HospitalPlatelet mean volume Auto (Bld) [Entitic vol]Ordered By: Maye Bunting on 92-93-6276Gtrftzep mean volume (Bld) [Entitic vol]10.3 fL6.6-10.1FProMedica Defiance Regional Hospital Platelet morphology finding [Identifier] in BloodOrdered By: Maye Bunting on 82-59-5129Vyzvaksp morphology finding Nom (Bld)NormalNormParkwood HospitalPlatelets Auto (Bld) [#/Vol]Ordered By: Maye Bunting on 04-03-7168Ohxpnbsno (Bld) [#/Vol]208 10*3/iN662-231NslcizocqMercer County Community HospitalPoikilocytosis [Presence] in Blood by Light microscopyOrdered By: Maye Bunting on 80-14-2004Akckyqblgdpjdm LM Ql (Bld)[facility]ma HealthPolychromasia [Presence] in Blood by Light microscopyOrdered By: Maye Bunting on 23-42-6526Qdpgjgyuzsitm LM Ql (Bld)[facility] HealthRBC Auto (Bld) [#/Vol]Ordered By: Myae Bunting on 77-97-9482FMA (Bld) [#/Vol]2.87 10*6/uL3.90-5.60[facility] morphology Ordered By: Maye Bunting on 97-66-5087UBI morphology finding Nom (Bld)N/A [facility] Hospitalchistocytes [Presence] in Blood by Light microscopyOrdered By: Maye Bunting on 12-72-9019Iyzhafljuhgm LM Ql (Bld)Slight [facility] Hospitalegmented neutrophils/100 WBC Manual cnt (Bld) Ordered By: Maye Bunting on 98-97-3212Omawcitnp neutrophils/100 WBC (Bld)56 % 50-70Barnesville Hospitalpherocytes [Presence] in Blood by Light microscopyOrdered By: Maye Bunting on 90-10-4529Ayahwdigxll LM Ql (Bld)Slight [facility] HospitalTarget cellsOrdered By: Maye Bunting on 02-63-8045Rnytuv cells LM Ql (Bld)[facility] HealthWBC Auto (Bld) [#/Vol]Ordered By: Maye Bunting on 11-77-6126HQP (Bld) [#/Vol]11.1 10*3/uL4.1-10.5FProMedica Defiance Regional HospitalUS renal BIon 21-70-1050UC renal BINormalMercer County Community HospitalAnisocytosis LM Ql (Bld)Ordered By: Maye Bunting on 31-42-0061Uranwqmgeaze Ql (Bld)[facility] CenterBasophils Auto (Bld) [#/Vol]Ordered By: Maye Bunting on 15-22-1765Ppmtscpho (Bld) [#/Vol]N/[facility] Basophils/100 WBC Auto (Bld)Ordered By: Maye Bunting on 03-08-2022 Basophils/100 WBC (Bld)N/[facility] CenterBasophils/100 WBC Manual cnt (Bld)Ordered By: Maye Bunting on 99-60-8158Yeqdgptmt/100 WBC (Bld)0 %0-2FProMedica Defiance Regional HospitalDiff and CBCon 05-76-5533Xrjxhwxrcc CommentsPremier HealthComment on above:Result Comment: prewarmed sample due to MCV > 37. 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 Performed By: #### DIFF CBC ####[address] [place] [address] USAAnisocytosis Ql (Bld)[facility]. Francis HospitalComment on above:Performed By: #### DIFF CBC ####[address] [place] [id number] [facility] Basophils/100 WBC (Bld)0 %Normal0-2FProMedica Defiance Regional HospitalComment on above:Performed By: #### DIFF CBC ####[address] [address] USAEosinophils/100 WBC (Bld)2 %Normal1-3FProMedica Defiance Regional HospitalComment on above:Performed By: #### DIFF CBC ####[address] [id number] [facility] Erythrocyte distribution width (RBC) [Ratio]18.4 %High12.0-14.8Mer[facility] County Community HospitalComment on above:Performed By: #### DIFF CBC ####[address] Hematocrit (Bld) [Volume fraction]27.5 %Low38.8-50.0[facility] County Community HospitalComment on above:Performed By: #### DIFF CBC ####[place] [address] USAHemoglobin (Bld) [Mass/Vol]8.6 g/dLLow13.0-17.0Mer[facility] HospitalComment on above:Performed By: #### DIFF CBC ####[place] [address] USAHypochromasiaSlightNormalMercer County Community HospitalComment on above:Performed By: #### DIFF CBC ####[id number] USALymphocytes/100 WBC (Bld)37 %Qzwvzo36-69ComuwfsarMercer County Community HospitalComment on above:Performed By: #### DIFF CBC ####[id number] USAMCH (RBC) [Entitic mass]28.3 lqGpznrb04.5-35.2FProMedica Defiance Regional Hospital Comment on above:Performed By: #### DIFF CBC ####[id number] USAMCV (RBC) [Entitic vol]90.5 fLNormal 83.5-101Mer[facility] HospitalComment on above:Performed By: #### DIFF CBC ####[address] [address] USAMean Corpuscular HGB Conc31.3 g/dLLow32.5-35.6FProMedica Defiance Regional HospitalComment on above:Performed By: #### DIFF CBC ####[address] [address] USAMonocytes/100 WBC (Bld)8 % Normal2-11[facility] HospitalComment on above:Performed By: #### DIFF CBC ####[address] [address] USANucleated Red Blood Cell0 /100{WBC}Normal0-0[facility] Comment on above:Performed By: #### DIFF CBC ####[address] [address] USAPlatelet EstimateNormalNormalNormal [facility] HospitalComment on above:Performed By: #### DIFF CBC ####[address] [address] [place] Platelet mean volume (Bld) [Entitic vol]9.7 fLNormal6.6-10.1FProMedica Defiance Regional HospitalComment on above:Result Comment: PERFORMED BY:[address] [place], [place] [phone] MEDICAL MOOSE PINO M.D.Performed By: #### DIFF CBC ####[address] [address] USAPlatelet MorphologyNormal NormalNoProvidence HospitalComment on above:Performed By: #### DIFF CBC ####[address] [address] USAPlatelets (Bld) [#/Vol]184 10*3/tOAonqcv333-008OxzpyzhgxMercer County Community HospitalComment on above:Performed By: #### DIFF CBC ####[address] [place] [address] USAPoikilocytosisModerateSainte Genevieve County Memorial Hospitalal [facility] HospitalComment on above:Performed By: #### DIFF CBC ####[address] [address] USARBC (Bld) [#/Vol]3.04 10*6/uLLow3.90-5.60[facility] HospitalComment on above:Performed By: #### DIFF CBC ####[address] [address] USASchistocytesWright-Patterson Medical CenterComment on above:Performed By: #### DIFF CBC ####[address] [address] USASegmented neutrophils/100 WBC (Bld)53 %Ljdxuo80-47WpzkxgkrxMercer County Community HospitalComment on above:Performed By: #### DIFF CBC ####[address] [address] USASmudge CellsWright-Patterson Medical CenterComment on above:Performed By: #### DIFF CBC ####[address] [address] USASpherocytesWright-Patterson Medical CenterComment on above:Performed By: #### DIFF CBC ####[address] [address] USATarget CellsProMedica Flower HospitalComment on above:Performed By: #### DIFF CBC ####[address] [address] USATear Drop CellsWright-Patterson Medical CenterComment on above: Performed By: #### DIFF CBC ####[address] [address] USAWBC (Bld) [#/Vol]11.4 10*3/uLHigh4.1-10.5FProMedica Defiance Regional HospitalComment on above:Performed By: #### DIFF CBC ####[address] [place] [address] [facility] Eosinophils Auto (Bld) [#/Vol]Ordered By: Maye Bunting on 03-08-2022 Eosinophils (Bld) [#/Vol]N/[facility] CenterEosinophils/100 WBC Auto (Bld)Ordered By: Maye Bunting on 78-23-5715Jgsyvtzfrxv/100 WBC (Bld)N/A [facility] HospitalEosinophils/100 WBC Manual cnt (Bld)Ordered By: Maye Bunting on 78-81-2901Ktzzdxazngn/100 WBC (Bld)2 %1-3FProMedica Defiance Regional HospitalErythrocyte distribution width Auto (RBC) [Ratio]Ordered By: Maye Bunting on 49-12-4578Zxineaxtcfx distribution width (RBC) [Ratio]18.4 % 12.0-14.8[facility] Community HospitalHematocrit Auto (Bld) [Volume fraction]Ordered By: Maye Bunting on 89-22-8146Wansqdddju (Bld) [Volume fraction]27.5 %38.8-50.0[facility] HospitalHemoglobin [Mass/volume] in BloodOrdered By: Maye Bunting on 76-66-5085Zrwagkygyf (Bld) [Mass/Vol]8.6 g/dL13.0-17.0[facility] HospitalHypochromia LM Ql (Bld)Ordered By: Maye Bunting on 35-03-7901Aweowmgythn Ql (Bld)SlightMercer County Community HospitalLeukocytes [#/volume] corrected for nucleated erythrocytes in Blood by Automated counOrdered By: Maye Bunting on 03-08-2022 WBC corrected for nucl RBC Auto (Bld) [#/Vol]11.4 10*3/uL4.1-10.5FProMedica Defiance Regional HospitalLymphocytes Auto (Bld) [#/Vol]Ordered By: Maye Bunting on 33-63-1923Mihaajkrgtf (Bld) [#/Vol]N/[facility] Lymphocytes/100 WBC Auto (Bld)Ordered By: Maye Bunting on 03-08-2022 Lymphocytes/100 WBC (Bld)N/[facility] CenterLymphocytes/100 WBC Manual cnt (Bld)Ordered By: Maye Bunting on 57-90-0028Fgsckpnnhgk/100 WBC (Bld)37 %18-42[facility] Auto (RBC) [Entitic mass] Ordered By: Maye Bunting on 36-91-0251LBH (RBC) [Entitic mass]28.3 pg27.5-35.2 [facility] HospitalMCHC Auto (RBC) [Mass/Vol]Ordered By: Maye Bunting on 86-48-3811QPRJ (RBC) [Mass/Vol]31.3 g/dL32.5-35.6FProMedica Defiance Regional HospitalMCV Auto (RBC) [Entitic vol]Ordered By: Maye Bunting on 17-68-1966TQB (RBC) [Entitic vol]90.5 fL83.5-101[facility] HospitalMonocytes Auto (Bld) [#/Vol]Ordered By: Maye Bunting on 03-08-2022 Monocytes (Bld) [#/Vol]N/[facility] CenterMonocytes/100 WBC Auto (Bld)Ordered By: Maye Bunting on 28-74-7434Cyuqfoqyc/100 WBC (Bld)N/A [facility] HospitalMonocytes/100 WBC Manual cnt (Bld)Ordered By: Maye Bunting on 49-61-2721Tltliebsr/100 WBC (Bld)8 %2-11[facility] Community HospitalNeutrophils Auto (Bld) [#/Vol]Ordered By: Maye Bunting on 59-74-9143Focbuphotsj (Bld) [#/Vol]N/[facility] Neutrophils/100 WBC Auto (Bld)Ordered By: Maye Bunting on 03-08-2022 Neutrophils/100 WBC (Bld)N/[facility] CenterNo Panel InformationOrdered By: Maye Bunting on 31-79-7609GFZ CommentSee comment [facility] HospitalComment on above:prewarmed sample due to MCV > 37. 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Nucleated RBC/100 WBC Manual cnt (Bld) [Ratio]Ordered By: Maye Bunting on 63-42-8832Ulfogubom RBC/100 WBC (Bld) [Ratio]0 /100{WBC}0-0[facility] Nucleated erythrocytes [Presence] in Blood by Automated countOrdered By: Maye Bunting on 69-39-2364Iytoilkri RBC Auto Ql (Bld)N/[facility] CenterPlatelet adequacy [Presence] in Blood by Light microscopyOrdered By: Maye Bunting on 76-78-9665Yfyjyitmo LM Ql (Bld)NormalNoProvidence HospitalPlatelet mean volume Auto (Bld) [Entitic vol]Ordered By: Maye Bunting on 03-87-0273Lcsbowzc mean volume (Bld) [Entitic vol]9.7 fL6.6-10.1 [facility] HospitalPlatelet morphology finding [Identifier] in BloodOrdered By: Maye Bunting on 21-07-1766Sdsqpiri morphology finding Nom (Bld)NormalNormParkwood HospitalPlatelets Auto (Bld) [#/Vol] Ordered By: Maye Bunting on 36-87-8112Wzqnxuasa (Bld) [#/Vol]184 10*3/uL 150-450Mer[facility] Community HospitalPoikilocytosis [Presence] in Blood by Light microscopyOrdered By: Maye Bunting on 75-23-1017Cxccaaqvvtgsvd LM Ql (Bld)ModerateMercer County Community HospitalRBC Auto (Bld) [#/Vol]Ordered By: Maye Bunting on 02-96-4136RUA (Bld) [#/Vol]3.04 10*6/uL3.90-5.60[facility] morphologyOrdered By: Maye Bunting on 30-78-2564WJZ morphology finding Nom (Bld)N/[facility] Hospitalchistocytes [Presence] in Blood by Light microscopyOrdered By: Maye Bunting on 03-08-2022 Schistocytes LM Ql (Bld)SlightBarnesville Hospitalegmented neutrophils/100 WBC Manual cnt (Bld)Ordered By: Maye Bunting on 03-08-2022 Segmented neutrophils/100 WBC (Bld)53 %50-70[facility] Smudge cell detectionOrdered By: Maye Bunting on 65-19-8789Hebnwg cells LM Ql (Bld)[facility] Centerpherocytes [Presence] in Blood by Light microscopyOrdered By: Maye Bunting on 68-65-0794Dcgotsxhdhj LM Ql (Bld) [facility]ma HealthTarget cellsOrdered By: Maye Bunting on 70-86-7706Pvvsge cells LM Ql (Bld)[facility] Teardrop cell detectionOrdered By: Maye Bunting on 84-02-8868Awdusyanol LM Ql (Bld)[facility] HealthWBC Auto (Bld) [#/Vol]Ordered By: Maye Bunting on 94-86-0590RMG (Bld) [#/Vol]11.4 10*3/uL4.1-10.5FProMedica Defiance Regional HospitalNM mateo perf SPECT rest stron 38-48-1593HY mateo perf SPECT rest strPremier HealthNo Panel Informationon 03-06-2022 [facility] 250 DO Work Phone: ECH echo transthoracicon 82-15-2415ZPM echo transthoracicPremier HealthNo Panel Informationon 09-41-1529YGHutchinson Health Hospital 250 DO Work Phone: [phone]-TuacsHutchinson Health Hospital 250 DO Work Phone: STR cardiac stress/lexiscanon 99-74-8280CUT cardiac stress/lexiscanNormalMercer County Community HospitalHeight or Weight NOT Done on 82-24-3190Gyyj risk assessmentb) One or more falls in the last yearHutchinson Health Hospital 250 DO Work Phone: Tobacco use status CPHSb) NoMM Health [facility] 250 DO Work Phone: Office Visit (Cardiology)on 58-50-7826Wdfcob-up visit Diagnoses/Problems Assessed CKD stage 4 due to type 2 diabetes mellitus (250.40,585.4) (E11.22,N18.4) Preoperative cardiovascular examination (V72.81) (Z01.810) Atherosclerosis of ute coronary artery of ute heart without angina pectoris (414.01) (I25.10) Diabetes [...] to chair (781.99) (Z74.09) Orders Atherosclerosis of ute coronary artery of ute heart without angina pectoris, CKD stage 4 due to type 2 diabetes mellitus, Diabetes, Diabetic neuropathy, Hypertension, Mixed hyperlipidemia, Preoperative cardiovascular examination Echocardiogram; Status:Hold For - Scheduling,Retrospective Authorization; Requested for:21Feb2022; NM Cardiac Stress/Rest Nuclear Med Order; Status:Hold For - Scheduling,Retrospective Authorization; Requested for:21Feb2022; Radiologist to Determine Optimal [...] we can help. You may also call [phone] for free resources and assistance.; Status:Complete - Retrospective Authorization; Done: 21Feb2022 Tobacco Use Screening; Status:Complete; Done: [id number] Patient Instructions Please bring all medicines, vitamins, [...] to this provider. He resides in a [facility], and has multiple cardiac risk factors including [...] very limited gets around in a wheelchair, [facility] resident. He is status post left transmetatarsal amputation, and his right foot is bandaged completely, for a nonhealing ulcer, which has been there for about 4 to 5 months. Followed by wound nurse once a week at the [facility]. Continues to smoke. EKG today normal sinus rhythm 90 bpm NH interval 180 ms QRS duration 112 ms [...] waves and left atr (more content not included)...NormalUH [facility] USA Basic Metabolic Panelon 23-66-2824Mpcrt gap [Moles/Vol]19.1 mmol/LHigh6.0-15.0 [facility] HospitalComment on above:Performed By: #### BMP ####[address] [address] USACalcium [Mass/Vol]8.8 mg/dLNormal8.2-10.2FProMedica Defiance Regional HospitalComment on above:Result Comment: PERFORMED BY:[address] [place], [place] [phone] MEDICAL DIRECTORCHRISTO PINO M.D. Performed By: #### BMP ####[address] [address] USAChloride [Moles/Vol]102 mmol/KOxrxay77-159VcwyvhathMercer County Community HospitalComment on above:Performed By: #### BMP ####[address] [address] USACO2 [Moles/Vol]23.3 mmol/MMfipgc42.0-30.0[facility] HospitalComment on above:Performed By: #### BMP ####[address] [address] USACreatinine [Mass/Vol]3.84 mg/dLHigh0.64-1.27[facility] HospitalComment on above:Performed By: #### BMP ####[address] [address] USAEstimated GFR ( Yeritrr94Lonzgm [facility] HospitalComment on above:Result Comment: GFR estimated reference range: According to KDOQI guidelines, <60 ml/min/1.73m2 is sufficient to diagnose a patient with chronic kidney disease.Performed By: #### BMP ####[address] [place] [address] [place] Estimated GFR (Non- Zq02BdoeleAbarxyhomMercer County Community HospitalComment on above:Performed By: #### BMP ####[place] [id number] USAGlucose [Mass/Vol]105 mg/lDCqvz78-223KwfdunfpcMercer County Community HospitalComment on above:Result Comment: Random Glucose Reference Range is dependent on time and content of last meal. Glucose of more than 200 mg/dL in a nonstressed, ambulatory subject supports the diagnosis of Diabetes Mellitus. ADA recommended reference rangePerformed By: #### BMP ####[address] [place] [id number] USAPotassium [Moles/Vol] 5.4 mmol/LHigh3.5-5.1FProMedica Defiance Regional HospitalComment on above:Performed By: #### BMP ####[address] USASodium [Moles/Vol]139 mmol/BHufkew174-920DfzbruilbMercer County Community HospitalComment on above:Performed By: #### BMP ####[address] [address] USAUrea nitrogen [Mass/Vol]57 mg/dLHigh 9-23Mer[facility] Community HospitalComment on above:Performed By: #### BMP ####[place] [id number] [place] Basophils Auto (Bld) [#/Vol]Ordered By: Kiko Corbett on 83-00-5038Hcpeognol (Bld) [#/Vol]N/[facility] CenterBasophils/100 WBC Auto (Bld)Ordered By: Kiko Corbett on 31-52-8192Xljfellia/100 WBC (Bld)N/[facility] CenterBlood anisocytosis detectionOrdered By: Kiko Corbett on 01-11-2022 Anisocytosis Ql (Bld)[facility] CenterBlood hemoglobin measurement (mass/volume)Ordered By: Kiko Corbett on 36-28-0337Kionaijjbq (Bld) [Mass/Vol]10.1 g/dL13.0-17.0[facility] HospitalBlood leukocytes automated count (number/volume)Ordered By: Kiko Aric on 49-86-3496PTL (Bld) [#/Vol]12.7 10*3/uL4.5-11.0[facility] HospitalCOVID-19 FRon 06-70-2274XQWR-CoV-2 (COVID-19) RNA JAYMIE+probe Ql (Unsp spec)NegativeNormal NegativeMercer County Community HospitalComment on above:Order Comment: Healthcare Worker?: NResult Comment: Testing for SARS-CoV-2 by RT-PCR This test was developed and its performance characteristics determined by [employer] ([employer]) and validated at the [facility]. This test has not been FDA cleared or approved. This test has been authorized by FDA under an Emergency Use Authorization (EUA). This test has been validated in accordance with the FDA's Guidance Document (Policy for Diagnostics Testing in Laboratories Certified to Perform High ComplexityTesting under CLIA prior to Emergency Use Authorization for Coronavirus Disease-2019 during the Public Health Emergency) issued on July 08, 2019. This test is only authorized for the duration of timethe declaration that circumstances exist justifying the authorization of the emergency use of in vitro diagnostic tests for detection of SARS-CoV-2 virus and/or diagnosis of COVID-19 infection under section 564(b)(1) of the Act, 21 U.S.C. 360bbb-3(b)(1), unless the authorization is terminated or revoked sooner.PERFORMED BY:[facility] [place], [place] [phone] MEDICAL DIRECTORCHRISTO PINO M.D. Performed By: #### COVID 19 [facility] ####[facility] [place] [address] USACOVID-19 Positive/NegativeOrdered By: Kiko Corbett on 82-24-7515XYKK-CoV-2 (COVID-19) N gene JAYMIE+probe Ql (Resp)NegativeNegative [facility] HospitalComment on above:Testing for SARS-CoV-2 by RT- PCRThis test was developed and its performance characteristics determined by [employer] ([employer]) and validated at the [facility]. This test has not been FDA [...] unless the authorization is terminated or revoked sooner.Creatinine and Glomerular filtration rate.predicted panel (S/P/Bld)Ordered By: Kiko Corbett on 30-57-4959Yxylljkwrt [Mass/Vol]3.84 mg/dL0.64-1.27[facility] Community HospitalDiff and CBCon 28-11-0740Vjojclsrhpbs Ql (Bld)ModerateNormalMercer County Community Hospital Comment on above:Performed By: #### DIFF CBC ####[address] [place] [address] USAEosinophils/100 WBC (Bld)2 %Normal1-3 [facility] HospitalComment on above:Performed By: #### DIFF CBC ####[address] [place] [id number] [facility] Erythrocyte distribution width (RBC) [Ratio]20.5 %High12.0-14.8[facility] Community HospitalComment on above:Performed By: #### DIFF CBC ####[address] [place] [id number] [facility] Hematocrit (Bld) [Volume fraction]31.7 %Low38.8-50.0[facility] HospitalComment on above:Performed By: #### DIFF CBC ####[address] [place] [address] USAHemoglobin (Bld) [Mass/Vol] 10.1 g/dLLow13.0-17.0[facility] HospitalComment on above:Performed By: #### DIFF CBC ####[address] [address] USALarge PlateletsModerateNormParkwood Hospital Comment on above:Result Comment: PERFORMED BY:[address] [place], [place] [phone] MEDICAL DIRECTORCHRISTO PINO M.D.Performed By: #### DIFF CBC ####[address] [address] USALymphocytes/100 WBC (Bld)42 % Hozclb57-46NkygqlwrnMercer County Community HospitalComment on above:Performed By: #### DIFF CBC ####[address] [address] USAMCH (RBC) [Entitic mass]28.0 scJrcwve64.5-35.2FProMedica Defiance Regional HospitalComment on above:Performed By: #### DIFF CBC ####[address] [address] USAMCV (RBC) [Entitic vol]87.9 fL Wktiai46.5-101Mer[facility] Community HospitalComment on above:Performed By: #### DIFF CBC ####[address] [address] USAMean Corpuscular HGB Conc31.9 g/dLLow32.5-35.6FProMedica Defiance Regional HospitalComment on above:Performed By: #### DIFF CBC ####[address] [address] USAMonocytes/100 WBC (Bld)10 %Normal2-11[facility] Community HospitalComment on above:Performed By: #### DIFF CBC ####[address] [address] USANucleated RBC/100 WBC (Bld) [Ratio]0.1 %Normal0-0.5FProMedica Defiance Regional HospitalComment on above:Performed By: #### DIFF CBC ####[facility] [place] [address] [place] Platelet EstimateNormalNormOhioHealth Arthur G.H. Bing, MD, Cancer CenterComment on above:Performed By: #### DIFF CBC ####[facility] [place] [address] USAPlatelet mean volume (Bld) [Entitic vol]10.4 fLHigh 6.6-10.1FProMedica Defiance Regional HospitalComment on above:Performed By: #### DIFF CBC ####[address] [address] USAPlatelets (Bld) [#/Vol]225 10*3/xMNdatra647-470NpfztbkveMercer County Community HospitalComment on above:Performed By: #### DIFF CBC ####[address] [address] USAPoikilocytosisModerateNormal [facility] HospitalComment on above:Performed By: #### DIFF CBC ####[address] [address] USARBC (Bld) [#/Vol]3.60 10*6/uLLow3.90-5.60Mer[facility] County Community HospitalComment on above:Performed By: #### DIFF CBC ####[address] [address] USASchistocytesSlightNoProvidence HospitalComment on above:Performed By: #### DIFF CBC ####[address] [address] USASegmented neutrophils/100 WBC (Bld)46 %Hgl04-60BkxelslaxMercer County Community HospitalComment on above:Performed By: #### DIFF CBC ####[address] [address] USATarget CellsMarkedPremier HealthComment on above:Performed By: #### DIFF CBC ####[address] [address] USAWBC (Bld) [#/Vol]12.7 10*3/uLHigh4.5-11.0Mer[facility] County Community HospitalComment on above:Performed By: #### DIFF CBC ####[facility] [address] [place] [address] USAECG 12 lead ECGon 28-89-9569QGI 12 lead ECGNormalMercer County Community Hospital Eosinophils Auto (Bld) [#/Vol]Ordered By: Kiko Corbett on 39-37-5925Lunajgchdey (Bld) [#/Vol]N/[facility] CenterEosinophils/100 WBC Auto (Bld) Ordered By: Kiko Corbett on 91-61-5572Baxkhmderko/100 WBC (Bld)N/[facility] CenterErythrocyte distribution width Auto (RBC) [Ratio]Ordered By: Kiko Corbett on 13-63-1746Jbrqxhoofct distribution width (RBC) [Ratio]20.5 % 12.0-14.8[facility] County Community HospitalEstimated glomerular filtration rate (GFR) non- AmericanOrdered By: Kiko Corbett on 26-00-5145NZF/1.73 sq M.predicted among non-blacks MDRD (S/P/Bld) [Vol rate/Area]16 mL/MinMercer County Community HospitalHematocrit Auto (Bld) [Volume fraction]Ordered By: Kiko Corbett on 05-62-0193Nowvzwqqzd (Bld) [Volume fraction]31.7 %38.8-50.0[facility] HospitalLaboratory - Hematology and Cell countsOrdered By: Kiko Corbett on 65-74-0953Lvuabacdd RBC/100 WBC (Bld) [Ratio]0.1 %0-0.5FProMedica Defiance Regional HospitalLymphocytes Auto (Bld) [#/Vol]Ordered By: Kiko Corbett on 01-11-2022 Lymphocytes (Bld) [#/Vol]N/[facility] CenterLymphocytes/100 WBC Auto (Bld)Ordered By: Kiko Corbett on 20-08-8092Iwubafxmfkk/100 WBC (Bld)N/A [facility] HospitalLymphocytes/100 WBC (Bld)42 %18-42[facility] HospitalH Auto (RBC) [Entitic mass]Ordered By: Kiko Corbett on 92-45-2811FOK (RBC) [Entitic mass]28.0 pg27.5-35.2FProMedica Defiance Regional HospitalMCHC Auto (RBC) [Mass/Vol]Ordered By: Kiko Corbett on 81-92-3107FDEO (RBC) [Mass/Vol]31.9 g/dL32.5-35.6FProMedica Defiance Regional HospitalMCV Auto (RBC) [Entitic vol]Ordered By: Kiko Corbett on 21-21-2351AIK (RBC) [Entitic vol]87.9 fL 83.5-101Mer[facility] Community HospitalMonocyte %Ordered By: Kiko Corbett on 42-61-8170Rbnxqgugc/100 WBC (Bld)2 %1-3FProMedica Defiance Regional Hospital Monocytes Auto (Bld) [#/Vol]Ordered By: Kiko Corbett on 19-67-4285Dvzkvpxky (Bld) [#/Vol]N/[facility] CenterMonocytes/100 WBC Auto (Bld)Ordered By: Kiko Corbett on 56-40-0848Euhgpfdbk/100 WBC (Bld)N/[facility] CenterMonocytes/100 WBC Manual cnt (Bld)Ordered By: Kiko Corbett on 01-11-2022 Monocytes/100 WBC (Bld)10 %2-11Mer[facility] Community HospitalNeutrophils Auto (Bld) [#/Vol]Ordered By: Kiko Corbett on 65-50-9412Rajiewsothc (Bld) [#/Vol]N/A [facility] HospitalNeutrophils/100 WBC Auto (Bld)Ordered By: Kiko Corbett on 61-05-1345Cnpfuuncnnu/100 WBC (Bld)N/[facility] No Panel InformationOrdered By: Kiko Corbett on 79-59-2066Npnvhkyoj GFR ()19 mL/MinMercer County Community HospitalComment on above:GFR estimated reference range: According to KDOQI guidelines, <60 ml/min/1.73m2 is sufficient todiagnose a patient with chronic kidney disease.Large Platelets ModerateMercer County Community HospitalPharmacy Creatinine Clearance (ChemN/A [facility] HospitalPlatelet EstimateNormalNormalMercer County Community HospitalPlatelet Morphology CommentN/AFProMedica Defiance Regional Hospital PoikilocytosisModerateBarnesville HospitalchistocytesSlight [facility] HospitalPlatelet mean volume Auto (Bld) [Entitic vol] Ordered By: Kiko Corbett on 79-13-1740Apjhbkdw mean volume (Bld) [Entitic vol]10.4 fL6.6-10.1FProMedica Defiance Regional HospitalPlatelets Auto (Bld) [#/Vol]Ordered By: Kiko Corbett on 05-00-2195Tvezyahxs (Bld) [#/Vol]225 10*3/vG090-973LumazugyjMercer County Community HospitalRBC Auto (Bld) [#/Vol]Ordered By: Kiko Corbett on 01-11-2022 RBC (Bld) [#/Vol]3.60 10*6/uL3.90-5.60[facility] Community HospitalRBC morphologyOrdered By: Kiko Corbett on 43-89-9592JNO morphology finding Nom (Bld)N/A [facility] Hospitalegmented neutrophils/100 WBC Manual cnt (Bld) Ordered By: Kiko Corbett on 52-96-5848Zialyrktc neutrophils/100 WBC (Bld)46 %50-70 [facility] Hospitalerum or plasma anion gap determinationOrdered By: Kiko Corbett on 97-48-0845Aeyom gap [Moles/Vol]19.1 mmol/L6.0-15.0[facility]ville Hospitalerum or plasma calcium measurement (mass/volume)Ordered By: Kiko Corbett on 12-65-9152Dkqnnfl [Mass/Vol]8.8 mg/dL8.2-10.2FMercy Health Anderson Hospitalerum or plasma chloride measurement (moles/volume)Ordered By: Kiko Corbett on 55-61-2904Rrngcylf [Moles/Vol]102 mmol/W41-776GgylwvlyxBarnesville Hospitalerum or plasma glucose measurement (mass/volume)Ordered By: Kiko Corbett on 67-37-6351Apqrbxu [Mass/Vol]105 mg/bR45-963BvdixaesiMercer County Community HospitalComment on above:ADA recommended reference rangeRandom Glucose Reference Range is dependent on time and content of last meal. Glucose of more than 200 mg/dL in a nonstressed, ambulatory subject supports the diagnosisof Diabetes Mellitus.Serum or plasma potassium measurement (moles/volume)Ordered By: Kiko Corbett on 25-50-7130Qcarfiztg [Moles/Vol]5.4 mmol/L3.5-5.1FMercy Health Anderson Hospitalerum or plasma sodium measurement (moles/volume)Ordered By: Kiko Corbett on 79-50-8374Siqtlw [Moles/Vol]139 mmol/E823-714LvyvuzysjBarnesville Hospitalerum or plasma total carbon dioxide measurement (moles/volume)Ordered By: Kiko Corbett on 19-78-6766GC1 [Moles/Vol]23.3 mmol/L22.0-30.0Barn[facility]ville Hospitalerum or plasma urea nitrogen measurement (mass/volume)Ordered By: Kiko Corbett on 66-86-6016Yhww nitrogen [Mass/Vol]57 mg/dL9-23Mer[facility] Community HospitalTarget cellsOrdered By: Kiko Corbett on 19-52-1527Bbxgng cells LM Ql (Bld)[facility] CenterAlbumin [Mass/volume] in Serum or PlasmaOrdered By: Jose M Landry on 21-23-3873Svcmmmm [Mass/Vol]2.5 g/dL 3.2-5.5FProMedica Defiance Regional HospitalBasophils Auto (Bld) [#/Vol]Ordered By: Jose M Landry on 06-18-4693Cgvbecvuk (Bld) [#/Vol]0.2 10*3/uL0.0-0.2 [facility] HospitalBasophils/100 WBC Auto (Bld)Ordered By: Jose M Landry on 97-49-6820Jmpujafvk/100 WBC (Bld)1.3 %.[facility] HospitalBlood anisocytosis detectionOrdered By: Jose M Landry on 12-05-2021 Anisocytosis Ql (Bld)ModerateMercer County Community HospitalBlood hemoglobin measurement (mass/volume)Ordered By: Jose M Frantz on 55-03-8805Simcaywclp (Bld) [Mass/Vol]9.7 g/dL13.0-17.0Mer[facility] Community HospitalBlood leukocytes automated count (number/volume)Ordered By: Jose M Landry on 55-94-3373MCI (Bld) [#/Vol]14.0 10*3/uL4.1-10.5FProMedica Defiance Regional Hospital CT biopsyOrdered By: Jose M Landry on 50-17-7043OW oeehxh381 mg/aO159-960 [facility] HospitalTransferrin [Mass/Vol]235 mg/rE769-883HizhnqribMercer County Community HospitalComprehensive Metabolic Panelon 85-70-8107Ttmjcqp [Mass/Vol]2.5 g/dLLow3.2-5.5FProMedica Defiance Regional HospitalComment on above: Performed By: #### CMP ####[address] [address] USAAlbumin/Globulin [Mass ratio]0.4 {ratio}Normal [facility] HospitalComment on above:Performed By: #### CMP ####[address] [address] USAALP [Catalytic activity/Vol]184 U/BMwfj70-89LpzviqnbsMercer County Community HospitalComment on above:Performed By: #### CMP ####[address] [address] USAALT [Catalytic activity/Vol]17 U/AQgqurr19-71 [facility] HospitalComment on above:Performed By: #### CMP ####[address] [place] [address] USAAnion gap [Moles/Vol]16.4 mmol/LHigh6.0-15.0Mer[facility] County Community HospitalComment on above:Performed By: #### CMP ####[address] [place] [address] USAAST [Catalytic activity/Vol]30 U/GWljhtt46-47 [facility] HospitalComment on above:Performed By: #### CMP ####[facility] [place] [address] [facility] Bilirubin [Mass/Vol]0.6 mg/dLNormal0.3-1.2FProMedica Defiance Regional Hospital Comment on above:Performed By: #### CMP ####[address] [address] USACalcium [Mass/Vol]8.5 mg/dLNormal8.2-10.2 [facility] HospitalComment on above:Performed By: #### CMP ####[address] [address] [place] Chloride [Moles/Vol]109 mmol/GHxofrc26-458EjyzkuepwMercer County Community Hospital Comment on above:Performed By: #### CMP ####[address] [address] USACO2 [Moles/Vol]19.0 mmol/LLow22.0-30.0 [facility] HospitalComment on above:Performed By: #### CMP ####[address] [address] [facility] Creatinine [Mass/Vol]3.38 mg/dLHigh0.64-1.27[facility] Comment on above:Performed By: #### CMP ####[address] [address] USACreatinine Clr Calc Potdegxf80.43Normal [facility] Community HospitalComment on above:Result Comment: PERFORMED BY:[address] [place], [place] [phone] MEDICAL DIRECTORCHRISTO PINO M.D.Performed By: #### CMP ####[address] [address] [facility] Estimated GFR ( Xwmuvxn66BylolfTkflpbimhProvidence HospitalComment on above:Result Comment: GFR estimated reference range: According to KDOQI guidelines, <60 ml/min/1.73m2 is sufficient to diagnose a patient with chronic kidney disease.Performed By: #### CMP ####[address] [address] USAEstimated GFR (Non- Uw64JmwsrdBodltwtfkProvidence HospitalComment on above:Performed By: #### CMP ####[address] [address] USAGlobulin (S) [Mass/Vol]7.0 g/dLNoProvidence HospitalComment on above: Performed By: #### CMP ####[address] [address] USAGlucose [Mass/Vol]101 mg/uEKvja38-291LfknxdymjMercer County Community HospitalComment on above:Result Comment: Random Glucose Reference Range is dependent on time and content of last meal. Glucose of more than 200 mg/dL in a nonstressed, ambulatory subject supports the diagnosis of Diabetes Mellitus. ADA recommended reference rangePerformed By: #### CMP ####[address] [address] USAPotassium [Moles/Vol] 5.4 mmol/LHigh3.5-5.1FProMedica Defiance Regional HospitalComment on above:Performed By: #### CMP ####[address] [address] USAProtein [Mass/Vol]9.5 g/dLHigh6.1-7.9[facility] Comment on above:Performed By: #### CMP ####[address] [address] USASodium [Moles/Vol]139 mmol/MJvuhuw721-147 [facility] HospitalComment on above:Performed By: #### CMP ####[address] [address] USAUrea nitrogen [Mass/Vol]37 mg/dLHigh9-23Mer[facility] County Community HospitalComment on above:Performed By: #### CMP ####[address] [address] USACreatinine and Glomerular filtration rate.predicted panel (S/P/Bld)Ordered By: Jose M Landry on 16-26-8270Wlslgghhig [Mass/Vol] 3.38 mg/dL0.64-1.27Mer[facility] County Community HospitalEosinophils Auto (Bld) [#/Vol]Ordered By: Jose M Landry on 37-16-2923Ppteeyjxeie (Bld) [#/Vol]0.5 10*3/uL0.0-0.45Mer[facility] County Community HospitalEosinophils/100 WBC Auto (Bld) Ordered By: Jose M Landry on 33-21-8556Skfktmgytuq/100 WBC (Bld)3.4 %. [facility] Community HospitalErythrocyte distribution width Auto (RBC) [Ratio]Ordered By: Jose M Landry on 68-09-2369Yxvhsstvzys distribution width (RBC) [Ratio]17.7 %12.0-14.8[facility] Community HospitalEstimated glomerular filtration rate (GFR) non- AmericanOrdered By: Jose M Landry on 40-44-9067ZBS/1.73 sq M.predicted among non-blacks MDRD (S/P/Bld) [Vol rate/Area]18 mL/MinMercer County Community HospitalFerritinon 12-05-2021 Ferritin [Mass/Vol]52.5 ng/gGVfsgxb29.9-336.2FProMedica Defiance Regional Hospital Comment on above:Performed By: #### FE and TIBC, OKSANA, SCAN CBC, [id number] ####[facility] [address]#### METH ####[facility] ,Ferritin [Mass/volume] in Serum or PlasmaOrdered By: Jose M Landry on 75-38-5138Wvicmnnr [Mass/Vol]52.5 ng/mL23.9-336.2 [facility] HospitalFolate [Mass/volume] in Serum or PlasmaOrdered By: Jose M Landry on 38-75-4418Nlrpvl [Mass/Vol]ng/mL>5.9Mer[facility] County Community HospitalComment on above:Folate reference range: >5.9 ng/ml The WHO technical consultation on folate and vitamin b12 deficiencies has determined that folate concentrations less than 4 ng/ml are considered deficient.Folate reference range: >5.9 ng/mlThe WHO technical consultation on folate and vitamin a42bwqmahaljzbo has determined that folate concentrations lessthan 4 ng/ml are considered deficient.Globulin Calc (S) [Mass/Vol]Ordered By: Jose M Landry on 70-30-7392Xdobjdwp (S) [Mass/Vol] 7.0 g/dLMercer County Community HospitalHematocrit Auto (Bld) [Volume fraction] Ordered By: Jose M Landry on 50-52-6856Vryrnyrszi (Bld) [Volume fraction] 31.2 %38.8-50.0Mer[facility] County Community HospitalComment on above:Delta: 21.4 on 12/04/21-2101Hypochromia detectionOrdered By: Jose M Landry on 12-05-2021 Hypochromia Ql (Bld)SlightMercer County Community HospitalIron [Mass/volume] in Serum or PlasmaOrdered By: Jose M Landry on 22-40-7958Nbyo [Mass/Vol]93 ug/dO34-436HettbomvlMercer County Community HospitalIron and TIBC Profileon 12-05-2021% Iron Ygdrjsrjzk53.0 %Bmmigv05-96HbjajvdtqMercer County Community HospitalComment on above:Performed By: #### FE and TIBC, OKSANA, SCAN CBC, [id number] ####[facility] [place] [address] [place]#### METH ####[facility] ,Iron [Mass/Vol]93 ug/jIUnidzz41-086QqqaibjidMercer County Community HospitalComment on above:Performed By: #### FE and TIBC, OKSANA, SCAN CBC, [id number] ####[id number] [place]#### METH ####[facility] ,Total Iron Binding Lzdjscjc293 ug/kWNhigcz299-840 [facility] Community HospitalComment on above:Performed By: #### FE and TIBC, OKSANA, SCAN CBC, [id number] ####[facility] [place] [address] [place]#### METH ####[facility] ,Transferrin [Mass/Vol]235 mg/mZQvwjed409-010OnsikrmfjMercer County Community HospitalComment on above:Performed By: #### FE and TIBC, OKSANA, SCAN CBC, [id number] ####[facility] [address]#### METH ####[facility] ,Iron binding capacity [Mass/volume] in Serum or PlasmaOrdered By: Jose M Landry on 76-11-3493Ceqb binding capacity [Mass/Vol]329 ug/nG074-375 [facility] HospitalIron saturation [Mass Fraction] in Serum or PlasmaOrdered By: Jose M Landry on 69-97-3680Njmv saturation [Mass fraction] 28.0 %20-50Mer[facility] County Community HospitalLaboratory - Chemistry and Chemistry - challengeOrdered By: Jose M Landry on 87-51-9250Xhcogayix (Vitamin B12) [Mass/Vol]6328 pg/nJ911-689BazeekauqMercer County Community HospitalLaboratory - Hematology and Cell countsOrdered By: Jose M Landry on 22-45-2166Aksbhfsrw RBC/100 WBC (Bld) [Ratio]0.5 %0-0.5FProMedica Defiance Regional HospitalLeukoReduced RBCon 47-49-9694BnxbmDnjyshw RBCTRANSFUSED 12/05/21 0245NormalMercer County Community HospitalLymphocytes Auto (Bld) [#/Vol]Ordered By: Jose M Landry on 38-63-8390Qiuuwcaevna (Bld) [#/Vol]6.2 10*3/uL1.00-4.8Mer[facility] County Community HospitalLymphocytes/100 WBC Auto (Bld)Ordered By: Jose M Landry on 93-78-5350Sqfnweazime/100 WBC (Bld)44.4 %.[facility] Auto (RBC) [Entitic mass]Ordered By: Jose M Landry on 67-37-7551GTD (RBC) [Entitic mass]27.3 pg27.5-35.2Fire[facility] Regional Medical CenterMCHC Auto (RBC) [Mass/Vol]Ordered By: Jose M Landry on 07-94-2147TRMO (RBC) [Mass/Vol]31.2 g/dL32.5-35.6FProMedica Defiance Regional HospitalMCV Auto (RBC) [Entitic vol]Ordered By: Jose M Landry on 40-43-3419BDQ (RBC) [Entitic vol]87.4 fL83.5-101Mer[facility] Community HospitalMacrocytes detectionOrdered By: Jose M Landry on 28-87-7598Tjetcpqzqt Ql (Bld)SlightMercer County Community HospitalMethylmalonic Acidon 87-95-2511Egdwrmwqvwswi Zhie205Gxsz2-641 [facility] HospitalComment on above:Result Comment: This test was developed and its performance characteristics determined by [employer]. It has not been cleared or approved by the Food and Drug Administration. Performed at: [facility] Lab[address] [id number] Glass Decorator: Fabienne Harmon MD, Phone: [phone] BY:[facility] [place] [place], [place] [phone] MEDICAL DIRECTORCHRISTO PINO M.D.Performed By: #### FE and TIBC, OKSANA, SCAN CBC, [id number] ####[facility] [address] [place] [address] [facility]#### METH ####[facility] ,Monocytes Auto (Bld) [#/Vol]Ordered By: Jose M Landry on 61-03-9992Pguoarslo (Bld) [#/Vol]0.8 10*3/uL0.0-0.8Mer[facility] County Community HospitalMonocytes/100 WBC Auto (Bld)Ordered By: Jose M Landry on 82-00-0349Vilfpzawy/100 WBC (Bld)5.5 %.[facility] Neutrophils Auto (Bld) [#/Vol]Ordered By: Jose M Landry on 12-05-2021 Neutrophils (Bld) [#/Vol]6.3 10*3/uL1.8-7.7FProMedica Defiance Regional Hospital Neutrophils/100 WBC Auto (Bld)Ordered By: Jose M Landry on 12-05-2021 Neutrophils/100 WBC (Bld)45.4 %.[facility] Community HospitalNo Panel InformationOrdered By: Jose M Landry on 24-79-0433Vhwzbszct GFR ()22 mL/MinMercer County Community HospitalComment on above:GFR estimated reference range: According to KDOQI guidelines, <60 ml/min/1.73m2 is sufficient todiagnose a patient with chronic kidney disease.MicrocytosisSShelby Memorial HospitalPharmacy Creatinine Clearance (Chem26.43 [facility] HospitalPlatelet EstimateNormalNormParkwood HospitalPlatelet Morphology CommentNormOhioHealth Arthur G.H. Bing, [facility], Cancer Center14.0 10*3/uL4.5-11.0[facility]0.5 %0-0.5FMercy Health Anderson HospitallightMercer County Community HospitalNormalNoSelect Medical Specialty Hospital - Canton22 mL/MinMercer County Community Hospital6328 pg/kO061-882ImkiemegdMercer County Community Hospital26.43[facility] Community HospitalPlatelet mean volume Auto (Bld) [Entitic vol]Ordered By: Jose M Landry on 21-56-6169Adkbjbxh mean volume (Bld) [Entitic vol]10.8 fL6.6-10.1FProMedica Defiance Regional HospitalPlatelets Auto (Bld) [#/Vol]Ordered By: Jose M Landry on 75-53-4686Mfotnkgxo (Bld) [#/Vol]379 10*3/zW095-550KxndmojrvMercer County Community HospitalProtein [Mass/volume] in Serum or PlasmaOrdered By: Jose M Landry on 05-35-3140Ejwatyy [Mass/Vol]9.5 g/dL6.1-7.9Mer[facility] County Community HospitalComment on above:Delta: 7.9 on 12/04/21-2102RBC Auto (Bld) [#/Vol] Ordered By: Jose M Landry on 40-31-2034SUT (Bld) [#/Vol]3.57 10*6/uL 3.90-5.60[facility] HospitalC morphologyOrdered By: Jose M Landry on 45-88-1258TUD morphology finding Nom (Bld)N/AFMercy Health Anderson Hospitalcan and CBCon 64-53-2391Unpbudovppxe Ql (Bld)ModerateNormal [facility] HospitalComment on above:Performed By: #### FE and TIBC, OKSANA, SCAN CBC, [id number] ####[address]#### METH ####[facility] ,Basophils (Bld) [#/Vol]0.2 10*3/uLNormal0.0-0.2FProMedica Defiance Regional HospitalComment on above:Performed By: #### FE and TIBC, OKSANA, SCAN CBC, [id number] ####[address]#### METH ####[facility] ,Basophils/100 WBC (Bld)1.3 %Normal.Mer[facility] County Community HospitalComment on above:Performed By: #### FE and TIBC, OKSANA, SCAN CBC, [id number] ####[place] [address] [place]#### METH ####[facility] ,Eosinophils (Bld) [#/Vol]0.5 10*3/uLHigh0.0-0.45 [facility] HospitalComment on above:Performed By: #### FE and TIBC, OKSANA, SCAN CBC, [id number] ####[place] [address] [place]#### METH ####[facility] ,Eosinophils/100 WBC (Bld)3.4 %Normal.Mer[facility] County Community HospitalComment on above:Performed By: #### FE and TIBC, OKSANA, SCAN CBC, [id number] ####[place] [address] [place]#### METH ####[facility] , Erythrocyte distribution width (RBC) [Ratio]17.7 %High12.0-14.8Mer[facility] County Community HospitalComment on above:Performed By: #### FE and TIBC, OKSANA, SCAN CBC, [id number] ####[address]#### METH ####[facility] ,Hematocrit (Bld) [Volume fraction]31.2 %Significant change down38.8-50.0[facility] Comment on above:Performed By: #### FE and TIBC, OKSANA, SCAN CBC, [id number] ####[address]#### METH ####[facility] ,Hemoglobin (Bld) [Mass/Vol]9.7 g/dLLow13.0-17.0 [facility] HospitalComment on above:Performed By: #### FE and TIBC, OKSANA, SCAN CBC, [id number] ####[address]#### METH ####[facility] ,Hypochromasia SlightNormalMercer County Community HospitalComment on above:Performed By: #### FE and TIBC, OKSANA, SCAN CBC, [id number] ####[place] [address] [place]#### METH ####[facility] , Lymphocytes (Bld) [#/Vol]6.2 10*3/uLHigh1.00-4.8[facility] Community HospitalComment on above:Performed By: #### FE and TIBC, OKSANA, SCAN CBC, [id number] ####[address]#### METH ####[facility] ,Lymphocytes/100 WBC (Bld)44.4 %Normal.Mer[facility] County Community HospitalComment on above:Performed By: #### FE and TIBC, OKSANA, SCAN CBC, [id number] ####[place] [address] [place]#### METH ####[facility] ,MacrocytosisSlightNormal [facility] Community HospitalComment on above:Performed By: #### FE and TIBC, OKSANA, SCAN CBC, [id number] ####[place] [address] [place]#### METH ####[facility] ,MCH (RBC) [Entitic mass]27.3 pgLow27.5-35.2FProMedica Defiance Regional HospitalComment on above:Performed By: #### FE and TIBC, OKSANA, SCAN CBC, [id number] ####[address]#### METH ####[facility] ,MCV (RBC) [Entitic vol]87.4 jIIeovtp47.5-101Mer[facility] Community HospitalComment on above:Performed By: #### FE and TIBC, OKSANA, SCAN CBC, [id number] ####[address]#### METH ####[facility] ,Mean Corpuscular HGB Conc31.2 g/dLLow 32.5-35.6FProMedica Defiance Regional HospitalComment on above:Performed By: #### FE and TIBC, OKSANA, SCAN CBC, [id number] ####[place] [address] [place]#### METH ####[facility] ,Microcytosis SlightNormParkwood HospitalComment on above:Performed By: #### FE and TIBC, OKSANA, SCAN CBC, [id number] ####[place] [address] [place]#### METH ####[facility] ,Monocytes (Bld) [#/Vol]0.8 10*3/uLNormal0.0-0.8[facility] HospitalComment on above:Performed By: #### FE and TIBC, OKSANA, SCAN CBC, [id number] ####[address]#### METH ####[facility] ,Monocytes/100 WBC (Bld)5.5 %Normal.Mer[facility] County Community HospitalComment on above:Performed By: #### FE and TIBC, OKSANA, SCAN CBC, [id number] ####[place] [address] [place]#### METH ####[facility] ,Neutrophils (Bld) [#/Vol]6.3 10*3/uLNormal1.8-7.7 [facility] HospitalComment on above:Performed By: #### FE and TIBC, OKSANA, SCAN CBC, [id number] ####[place] [address] [place]#### METH ####[facility] ,Neutrophils/100 WBC (Bld)45.4 %Normal.Mer[facility] Community HospitalComment on above: Performed By: #### FE and TIBC, OKSANA, SCAN CBC, [id number] ####[place] [address] [place]#### METH ####[facility] ,Nucleated RBC/100 WBC (Bld) [Ratio]0.5 %Normal0-0.5FProMedica Defiance Regional HospitalCombeaumont hospital on above:Performed By: #### FE and TIBC, OKSANA, SCAN CBC, [id number] ####[place] [address] [place]#### METH ####[facility] ,Platelet EstimateNormalNormal NormalMercer County Community HospitalComment on above:Performed By: #### FE and TIBC, OKSANA, SCAN CBC, [id number] ####[place] [address] [place]#### METH ####[facility] ,Platelet mean volume (Bld) [Entitic vol]10.8 fLHigh6.6-10.1FProMedica Defiance Regional Hospital Comment on above:Performed By: #### FE and TIBC, OKSANA, SCAN CBC, [id number] ####[place] [address] [place]#### METH ####[facility] ,Platelet MorphologyNormalNormOhioHealth Arthur G.H. Bing, MD, Cancer CenterComment on above:Result Comment: PERFORMED BY:[address] [place], [place] [id number] MEDICAL DIRECTORCHRISTO PINO M.D.Performed By: #### FE and TIBC, OKSANA, SCAN CBC, [id number] ####[address] [address]#### METH ####[facility] ,Platelets (Bld) [#/Vol]379 10*3/uLNormal 150-450Mercer County Community HospitalComment on above:Performed By: #### FE and TIBC, OKSANA, SCAN CBC, [id number] ####[place] [address] [place]#### METH ####[facility] ,RBC (Bld) [#/Vol]3.57 10*6/uLLow3.90-5.60Mer[facility] County Community HospitalComment on above:Performed By: #### FE and TIBC, OKSANA, SCAN CBC, [id number] ####[place] [address] [place]#### METH ####[facility] ,Target CellsSlightNoProvidence HospitalComment on above:Performed By: #### FE and TIBC, OKSANA, SCAN CBC, [id number] ####[facility] [address]#### METH ####[facility] ,WBC (Bld) [#/Vol]14.0 10*3/uLHigh4.5-11.0Mer[facility] County Community HospitalComment on above:Performed By: #### FE and TIBC, OKSANA, SCAN CBC, [id number] ####[facility] [address] [place] [address] [place]#### METH ####[facility] ,Serum or plasma alanine aminotransferase measurement without P-5'-P (enzymatic activiOrdered By: Jose M Landry on 19-87-0811GXC No additional P-5'-P [Catalytic activity/Vol]17 U/D93-09NdamohwhwBarnesville Hospitalerum or plasma albumin/globulin mass ratioOrdered By: Jose M Landry on 16-20-6307Lnjyoss/Globulin [Mass ratio]0.4 {ratio}Barnesville Hospitalerum or plasma alkaline phosphatase measurement (enzymatic activity/volume)Ordered By: Jose M Landry on 42-26-5886AZM [Catalytic activity/Vol]184 U/E57-04VrqkacqjrBarnesville Hospitalerum or plasma anion gap determinationOrdered By: Joes M Landry on 07-11-3243Asonk gap [Moles/Vol]16.4 mmol/L6.0-15.0Barnesville Hospitalerum or plasma aspartate aminotransferase measurement (enzymatic activity/volume)Ordered By: Jose M Landry on 27-19-9253REC [Catalytic activity/Vol]30 U/L10-42 Barnesville Hospitalerum or plasma calcium measurement (mass/volume)Ordered By: Jose M Landry on 97-25-6659Ukuvzbd [Mass/Vol]8.5 mg/dL8.2-10.2FMercy Health Anderson Hospitalerum or plasma chloride measurement (moles/volume)Ordered By: Jose M Landry on 38-97-1301Lrfstxyu [Moles/Vol]109 mmol/Y65-913SehwvqreeBarnesville Hospitalerum or plasma creatinine measurement with calculation of estimated glomerular filtrOrdered By: Jose M Landry on 10-61-6678Jbhkxibdsk and Glomerular filtration rate.predicted panel (S/P/Bld)3.38 mg/dL0.64-1.27Barnesville Hospitalerum or plasma glucose measurement (mass/volume)Ordered By: Jose M Landry on 15-61-3746Mkdjhze [Mass/Vol]101 mg/lF04-465WfyntjkvkMercer County Community HospitalComment on above:ADA recommended reference range Random Glucose Reference Range is dependent on time and content of last meal. Glucose of more than 200 mg/dL in a nonstressed, ambulatory subject supports the diagnosis of Diabetes Mellitus.ADA recommended reference rangeRandom Glucose Reference Range is dependent on time and content of last meal. Glucose of more than 200 mg/dL in a nonstressed, ambulatory subject supports the diagnosisof Diabetes Mellitus.Serum or plasma methylmalonate measurement (moles/volume) Ordered By: Jose M Landry on 00-05-3779Ilzlrgnlienaxj [Moles/Vol]388 nmol/L 0-378Mercer County Community HospitalComment on above:This test was developed and its performance characteristicsdetermined by [employer]. It has not been cl eared orapproved by the Food and Drug Administration.Performed at: [address] [id number] Director: Fabienne Harmon MD, Phone: [phone] or plasma potassium measurement (moles/volume)Ordered By: Jose M Landry on 69-28-3605Vfypaxsbv [Moles/Vol]5.4 mmol/L3.5-5.1 Barnesville Hospitalerum or plasma sodium measurement (moles/volume)Ordered By: Jose M Landry on 04-85-0411Vqptuq [Moles/Vol]139 mmol/R414-210YgdmbjjgcBarnesville Hospitalerum or plasma total bilirubin measurement (mass/volume)Ordered By: Jose M Landry on 86-10-8977Febvxxbdr [Mass/Vol]0.6 mg/dL0.3-1.2FMercy Health Anderson Hospitalerum or plasma total carbon dioxide measurement (moles/volume)Ordered By: Jose M Landry on 18-78-9132WK3 [Moles/Vol]19.0 mmol/L22.0-30.0[facility] Serum or plasma urea nitrogen measurement (mass/volume)Ordered By: Jose M Landry on 97-27-5935Axnr nitrogen [Mass/Vol]37 mg/dL9-23Mer[facility] County Community HospitalTarget cellsOrdered By: Jose M Landry on 07-35-9729Wtkvll cells LM Ql (Bld)SlightMercer County Community HospitalType and Screenon 63-10-2153ZVU and Rh group Nom (d)Blood group O Rh(D) positiveNormalMercer County Community HospitalComment on above:Order Comment: Number of units to transfuse now? 2US renal BIon 34-76-9598PC renal BINormalMercer County Community HospitalVit. B12/Folate Profileon 63-16-4022Vrqlupsfu (Vitamin B12) [Mass/Vol]6328 pg/lTLtld948-138EsrgvymcnMercer County Community HospitalComment on above:Performed By: #### FE and TIBC, OKSANA, SCAN CBC, [id number] ####[place] [address] [address]#### METH ####[facility] ,Folate> 22.3Normal>5.9Mercer County Community HospitalComment on above:Result Comment: Folate reference range: >5.9 ng/ml The WHO technical consultation on folate and vitamin b12 deficiencies has determined that folate concentrations less than 4 ng/ml are considered deficient.PERFORMED BY:[address] [place], [place] [phone] MEDICAL DIRECTORCHRISTO PINO M.D.Performed By: #### FE and TIBC, OKSANA, SCAN CBC, [id number] ####[place] [id number] [facility]#### METH ####[facility] ,Activated partial thromboplastin time (aPTT) in platelet poor plasma by coagulation aOrdered By: Ramakrishna Sandoval on 43-54-9700aYBU Coag (PPP) [Time]34.5 s25.1-36.5FProMedica Defiance Regional Hospital Albumin [Mass/volume] in Serum or PlasmaOrdered By: Ramakrishna Sandoval on 39-83-6151Gakdlji [Mass/Vol]2.1 g/dL3.2-5.5FProMedica Defiance Regional Hospital Basophils Auto (Bld) [#/Vol]Ordered By: Ramakrishna Sandoval on 69-11-5236Olugtvgxc (Bld) [#/Vol]0.1 10*3/uL0.0-0.2FProMedica Defiance Regional HospitalBasophils/100 WBC Auto (Bld)Ordered By: Ramakrishna Sandoval on 15-07-3981Jgjbzmfyh/100 WBC (Bld) 0.6 %.[facility] County Community HospitalBlood anisocytosis detectionOrdered By: Ramakrishna Sandoval on 83-22-5951Aanczwftwpit Ql (Bld)[facility] Medical CenterBlood hemoglobin measurement (mass/volume)Ordered By: Ramakrishna Sandoval on 31-66-3021Jqszlpymks (Bld) [Mass/Vol]6.6 g/dL13.0-17.0Mer[facility] County Community HospitalBlood leukocytes automated count (number/volume)Ordered By: Ramakrishna Sandoval on 38-74-5257NGT (Bld) [#/Vol]12.2 10*3/uL4.5-11.0 [facility] HospitalBlood polychromasia detection by light microscopyOrdered By: Ramakrishna Sandoval on 94-44-7892Cdyepghpfoawx LM Ql (Bld) [facility] Medical CenterComprehensive Metabolic Panelon 22-63-3543Pkusrpr [Mass/Vol]2.1 g/dLLow3.2-5.5FProMedica Defiance Regional Hospital Comment on above:Performed By: #### PTT, PT, SCAN CBC, CMP ####[facility] [address] [place] [address] USAAlbumin/Globulin [Mass ratio]0.4 {ratio}Premier HealthComment on above: Performed By: #### PTT, PT, SCAN CBC, CMP ####[facility] [address] [place] [address] USAALP [Catalytic activity/Vol]144 U/JSsmy24-86 [facility] Community HospitalComment on above:Performed By: #### PTT, PT, SCAN CBC, CMP ####[place] [address] [place] [address] USAALT [Catalytic activity/Vol]17 U/FBohhqp40-42RzflzgguiMercer County Community HospitalComment on above:Performed By: #### PTT, PT, SCAN CBC, CMP ####[address] [address] USAAnion gap [Moles/Vol] 13.1 mmol/LNormal6.0-15.0Mercer County Community HospitalComment on above: Performed By: #### PTT, PT, SCAN CBC, CMP ####[address] [address] USAAST [Catalytic activity/Vol]29 U/ZLplpck73-60 [facility] Community HospitalComment on above:Performed By: #### PTT, PT, SCAN CBC, CMP ####[address] [address] USABilirubin [Mass/Vol]0.4 mg/dLNormal0.3-1.2FProMedica Defiance Regional HospitalComment on above:Performed By: #### PTT, PT, SCAN CBC, CMP ####[address] [address] USACalcium [Mass/Vol]7.9 mg/dLLow8.2-10.2FProMedica Defiance Regional HospitalComment on above:Performed By: #### PTT, PT, SCAN CBC, CMP ####[address] [address] USAChloride [Moles/Vol]108 mmol/CLmikbi26-141UnytamtiqMercer County Community HospitalComment on above:Performed By: #### PTT, PT, SCAN CBC, CMP ####[address] [address] USACO2 [Moles/Vol]19.2 mmol/LLow22.0-30.0Mer[facility] County Community HospitalComment on above:Performed By: #### PTT, PT, SCAN CBC, CMP ####[address] [address] USACreatinine [Mass/Vol]3.40 mg/dLHigh 0.64-1.27Mercer County Community HospitalComment on above:Performed By: #### PTT, PT, SCAN CBC, CMP ####[place] [address] USACreatinine Clr Calc Wyhroqfq42.43Premier HealthComment on above:Result Comment: PERFORMED BY:[address] [place], [place] [phone] MEDICAL DIRECTORCHRISTO PINO M.D.Performed By: #### PTT, PT, SCAN CBC, CMP ####[place] [id number] [facility] Estimated GFR ( Rlwniap29JpaamlJcyfkmyriPremier HealthComment on above:Result Comment: GFR estimated reference range: According to KDOQI guidelines, <60 ml/min/1.73m2 is sufficient to diagnose a patient with chronic kidney disease.Performed By: #### PTT, PT, SCAN CBC, CMP ####[place] [address] USAEstimated GFR (Non- Am 18Premier HealthComment on above:Performed By: #### PTT, PT, SCAN CBC, CMP ####[place] [id number] USAGlobulin (S) [Mass/Vol]5.8 g/dLPremier HealthComment on above:Performed By: #### PTT, PT, SCAN CBC, CMP ####[place] [id number] [place] Glucose [Mass/Vol]115 mg/oUYatx75-430FvbfuubbvMercer County Community HospitalComment on above:Result Comment: Random Glucose Reference Range is dependent on time and content of last meal. Glucose of more than 200 mg/dL in a nonstressed, ambulatory subject supports the diagnosis of Diabetes Mellitus. ADA recommended reference rangePerformed By: #### PTT, PT, SCAN CBC, CMP ####[facility] [place] [address] USAPotassium [Moles/Vol]4.3 mmol/LNormal3.5-5.1FProMedica Defiance Regional HospitalComment on above:Performed By: #### PTT, PT, SCAN CBC, CMP ####[place] [id number] USAProtein [Mass/Vol]7.9 g/dLNormal6.1-7.9Mer[facility] County Community HospitalComment on above:Performed By: #### PTT, PT, SCAN CBC, CMP ####[place] [id number] [place] Sodium [Moles/Vol]136 mmol/FNehcpb016-920NesfxbzqvMercer County Community Hospital Comment on above:Performed By: #### PTT, PT, SCAN CBC, CMP ####[place] [id number] USAUrea nitrogen [Mass/Vol]38 mg/dLHigh9-23Mer[facility] County Community HospitalComment on above: Performed By: #### PTT, PT, SCAN CBC, CMP ####[place] [address] USACreatinine and Glomerular filtration rate.predicted panel (S/P/Bld)Ordered By: Ramakrishna Sandoval on 12-04-2021 Creatinine [Mass/Vol]3.40 mg/dL0.64-1.27[facility] Eosinophils Auto (Bld) [#/Vol]Ordered By: Ramakrishna Sandoval on 12-04-2021 Eosinophils (Bld) [#/Vol]0.6 10*3/uL0.0-0.45[facility] Eosinophils/100 WBC Auto (Bld)Ordered By: Ramakrishna Sandoval on 12-04-2021 Eosinophils/100 WBC (Bld)5.1 %.Mer[facility] County Community HospitalErythrocyte distribution width Auto (RBC) [Ratio]Ordered By: Ramakrishna Sandoval on 12-04-2021 Erythrocyte distribution width (RBC) [Ratio]18.6 %12.0-14.8Mercer County Community HospitalEstimated glomerular filtration rate (GFR) non- Ordered By: Ramakrishna Sandoval on 14-95-0507KCS/1.73 sq M.predicted among non- blacks MDRD (S/P/Bld) [Vol rate/Area]18 mL/MinMercer County Community Hospital Globulin Calc (S) [Mass/Vol]Ordered By: Ramakrishna Sandoval on 56-51-5283Xfrgybex (S) [Mass/Vol]5.8 g/dLMercer County Community HospitalHematocrit Auto (Bld) [Volume fraction]Ordered By: Ramakrishna Sandoval on 30-37-4173Wmcalmwlff (Bld) [Volume fraction]21.4 %38.8-50.0Mer[facility] Community HospitalLaboratory - CoagulationOrdered By: Ramakrishna Sandoval on 99-55-1276MJ Coag (PPP) [Time]13.4 s 9.0-12.9Mer[facility] County Community HospitalLaboratory - Hematology and Cell counts Ordered By: Ramakrishna Sandoval on 91-25-6347Qadvtujkj RBC/100 WBC (Bld) [Ratio] 0.3 %0-0.5FProMedica Defiance Regional HospitalLymphocytes Auto (Bld) [#/Vol]Ordered By: Ramakrishna Sandoval on 84-10-4370Mffmymfwlxk (Bld) [#/Vol]4.7 10*3/uL1.00-4.8 [facility] County Community HospitalLymphocytes/100 WBC Auto (Bld)Ordered By: Ramakrishna Sandoval on 04-36-4931Hurtxalswfd/100 WBC (Bld)38.1 %.[facility] HospitalH Auto (RBC) [Entitic mass]Ordered By: Ramakrishna Sandoval on 72-57-2370JEL (RBC) [Entitic mass]26.6 pg27.5-35.2FProMedica Defiance Regional HospitalMCHC Auto (RBC) [Mass/Vol]Ordered By: Ramakrishna Sandoval on 86-94-6096PORZ (RBC) [Mass/Vol]30.7 g/dL32.5-35.6FTwin City HospitalV Auto (RBC) [Entitic vol]Ordered By: Ramakrishna Sandoval on 40-41-6515JLM (RBC) [Entitic vol]86.5 fL83.5-101Mer[facility] County Community HospitalMonocytes Auto (Bld) [#/Vol]Ordered By: Ramakrishna Sandoval on 51-21-5365Egjxwpefv (Bld) [#/Vol]1.4 10*3/uL0.0-0.8Mer[facility] County Community HospitalMonocytes/100 WBC Auto (Bld)Ordered By: Ramakrishna Sandoval on 49-91-5524Kzfgtusqa/100 WBC (Bld)11.2 %. [facility] Community HospitalNeutrophils Auto (Bld) [#/Vol]Ordered By: Ramakrishna Sandoval on 10-51-5463Kwdfvwrbkxw (Bld) [#/Vol]5.5 10*3/uL1.8-7.7 [facility] Community HospitalNeutrophils/100 WBC Auto (Bld)Ordered By: Ramakrishna Sandoval on 83-27-5768Didljxhbzcg/100 WBC (Bld)45.0 %.[facility] Community HospitalNo Panel InformationOrdered By: Ramakrishna Sandoval on 82-17-1578Rnqqcxinc GFR ()22 mL/MinMercer County Community HospitalComment on above:GFR estimated reference range: According to KDOQI guidelines, <60 ml/min/1.73m2 is sufficient todiagnose a patient with chronic kidney disease.Pharmacy Creatinine Clearance (Chem26.43Mer[facility] Community HospitalPlatelet EstimateNormalNoProvidence Hospital Platelet Morphology CommentNormalPremier Health PoikilocytosisModerateBarnesville HospitalchistocytesRareFProMedica Defiance Regional HospitalPartial Thromboplastin Timeon 02-49-7280aMET Coag (Bld) [Time]34.5 sAdlskp98.1-36.5FProMedica Defiance Regional HospitalComment on above: Result Comment: PERFORMED BY:[facility] [place], [place] [phone] MEDICAL DIRECTORCHRISTO PINO M.D. Performed By: #### PTT, PT, SCAN CBC, CMP ####[facility] [place] [address] USAPlatelet mean volume Auto (Bld) [Entitic vol] Ordered By: Ramakrishna Sandoval on 24-53-5605Lnjcpkqs mean volume (Bld) [Entitic vol]10.1 fL6.6-10.1FProMedica Defiance Regional HospitalPlatelet poor plasma international normalized ratio (INR) by coagulation assay (relatOrdered By: Ramakrishna Sandoval on 83-77-4036YOU Coag (PPP) [Relative time]1.2 {INR}Mer[facility] County Community HospitalComment on above:INR Therapeutic Range A) Pre- and Peroperative OAT started two weeks before surgery. NOT HIP SURGERY: 1.5 - 2.5 HIP SURGERY: 2 - 3 B) Primary and secondary prevention of venous THROMBOSIS: 2 - 3 C) Active venous thrombosis, pulmonary embolism and prevention of recurrent venous thrombosis: 2 - 3 D) Prevention of arterial thromboembolism including patients with mechanical heart valves: 3 - 4.5INR Therapeutic Range A) Pre- and Peroperative OAT started two weeks before surgery. NOT HIP SURGERY: 1.5 - 2.5 HIP SURGERY: 2 - 3B) Primary and secondary prevention of venous THROMBOSIS: 2 - 3C) Active venous thrombosis, pulmonary embolismand prevention of recurrent venous thrombosis: 2 - 3D) Prevention of arterial thromboembolismincluding patients with mechanical heart valves: 3 - 4.5Platelets Auto (Bld) [#/Vol]Ordered By: Ramakrishna Sandoval on 01-38-5253Zuzfptyvs (Bld) [#/Vol]337 10*3/oS127-726LrylsvvurMercer County Community HospitalProtein [Mass/volume] in Serum or PlasmaOrdered By: Ramakrishna Sandoval on 16-81-7495Bjnwyng [Mass/Vol] 7.9 g/dL6.1-7.9Mer[facility] County Community HospitalProthrombin Time INRon 54-14-9211QXC Coag (PPP) [Relative time]1.2 {INR}NormalMercer County Community HospitalComment on above:Result Comment: INR Therapeutic Range A) Pre- and [...] patients with mechanical heart valves: 3 - 4.5Performed By: #### PTT, PT, SCAN CBC, CMP ####[address] [address] USAPT Coag (PPP) [Time]13.4 sHigh9.0-12.9[facility] Comment on above:Performed By: #### PTT, PT, SCAN CBC, CMP ####[place] [id number] USARBC Auto (Bld) [#/Vol]Ordered By: Ramakrishna Sandoval on 01-13-3905RAX (Bld) [#/Vol]2.48 10*6/uL 3.90-5.60Mer[facility] Community HospitalRB morphologyOrdered By: Ramakrishna Sandoval on 52-44-4634PPH morphology finding Nom (Bld)N/[facility] Hospitalcan and CBCon 09-75-3480Dmatpgduenyz Ql (Bld)ModerateNormal [facility] HospitalComment on above:Performed By: #### PTT, PT, SCAN CBC, CMP ####[address] [address] USABasophils (Bld) [#/Vol]0.1 10*3/uLNormal0.0-0.2FProMedica Defiance Regional HospitalComment on above:Performed By: #### PTT, PT, SCAN CBC, CMP ####[address] [address] [place] Basophils/100 WBC (Bld)0.6 %Normal.Mer[facility] County Community HospitalComment on above:Performed By: #### PTT, PT, SCAN CBC, CMP ####[address] [address] USAEosinophils (Bld) [#/Vol]0.6 10*3/uL High0.0-0.45Mer[facility] County Community HospitalComment on above:Performed By: #### PTT, PT, SCAN CBC, CMP ####[address] [address] USAEosinophils/100 WBC (Bld)5.1 %Normal.Mer[facility] County Community HospitalComment on above:Performed By: #### PTT, PT, SCAN CBC, CMP ####[place] [id number] [facility] Erythrocyte distribution width (RBC) [Ratio]18.6 %High12.0-14.8Mer[facility] County Community HospitalComment on above:Performed By: #### PTT, PT, SCAN CBC, CMP ####[place] [id number] [facility] Hematocrit (Bld) [Volume fraction]21.4 %Low38.8-50.0[facility] Community HospitalCombeaumont hospital on above:Performed By: #### PTT, PT, SCAN CBC, CMP ####[place] [id number] USAHemoglobin (Bld) [Mass/Vol]6.6 g/dLLow13.0-17.0[facility] Community HospitalComment on above: Performed By: #### PTT, PT, SCAN CBC, CMP ####[place] [id number] USALymphocytes (Bld) [#/Vol]4.7 10*3/uLNormal 1.00-4.8[facility] Community HospitalCombeaumont hospital on above:Performed By: #### PTT, PT, SCAN CBC, CMP ####[address] [address] USALymphocytes/100 WBC (Bld)38.1 %Normal.Mer[facility] Community HospitalComment on above:Performed By: #### PTT, PT, SCAN CBC, CMP ####[address] [address] USAMCH (RBC) [Entitic mass]26.6 pgLow27.5-35.2FProMedica Defiance Regional HospitalComment on above:Performed By: #### PTT, PT, SCAN CBC, CMP ####[address] [address] USAMCV (RBC) [Entitic vol]86.5 fL Opwbqj51.5-101Mer[facility] County Community HospitalComment on above:Performed By: #### PTT, PT, SCAN CBC, CMP ####[address] [address] USAMean Corpuscular HGB Conc30.7 g/dLLow32.5-35.6 [facility] Community HospitalComment on above:Performed By: #### PTT, PT, SCAN CBC, CMP ####[address] [address] USAMonocytes (Bld) [#/Vol]1.4 10*3/uLHigh0.0-0.8Mer[facility] Community HospitalComment on above:Performed By: #### PTT, PT, SCAN CBC, CMP ####[address] [address] USAMonocytes/100 WBC (Bld)11.2 %Normal.Mer[facility] County Community HospitalComment on above:Performed By: #### PTT, PT, SCAN CBC, CMP ####[place] [id number] USANeutrophils (Bld) [#/Vol]5.5 10*3/uLNormal1.8-7.7 [facility] HospitalComment on above:Performed By: #### PTT, PT, SCAN CBC, CMP ####[address] [address] USANeutrophils/100 WBC (Bld)45.0 %Normal.[facility] Comment on above:Performed By: #### PTT, PT, SCAN CBC, CMP ####[place] [id number] USANucleated RBC/100 WBC (Bld) [Ratio]0.3 %Normal0-0.5FProMedica Defiance Regional HospitalComment on above: Performed By: #### PTT, PT, SCAN CBC, CMP ####[place] [id number] USAPlatelet EstimateNormalNormalNormalMercer County Community HospitalComment on above:Performed By: #### PTT, PT, SCAN CBC, CMP ####[address] [address] [facility] Platelet mean volume (Bld) [Entitic vol]10.1 fLNormal6.6-10.1FProMedica Defiance Regional HospitalComment on above:Performed By: #### PTT, PT, SCAN CBC, CMP ####[address] [address] [place] Platelet MorphologyNormalNormalNoProvidence HospitalComment on above:Result Comment: PERFORMED BY:[address] [place], [place] [phone] MEDICAL DIRECTORCHRISTO PINO M.D. Performed By: #### PTT, PT, SCAN CBC, CMP ####[address] [address] USAPlatelets (Bld) [#/Vol]337 10*3/uLNormal 150-450Mer[facility] County Community HospitalComment on above:Performed By: #### PTT, PT, SCAN CBC, CMP ####[address] [address] USAPoikilocytosisModeratePremier HealthComment on above:Performed By: #### PTT, PT, SCAN CBC, CMP ####[address] [address] USAPolychromasiaModerateNormal [facility] HospitalComment on above:Performed By: #### PTT, PT, SCAN CBC, CMP ####[address] [address] USARBC (Bld) [#/Vol]2.48 10*6/uLLow3.90-5.60[facility] Community HospitalComment on above:Performed By: #### PTT, PT, SCAN CBC, CMP ####[address] [address] USASchistocytesRare NormalMercer County Community HospitalComment on above:Performed By: #### PTT, PT, SCAN CBC, CMP ####[address] [place] [address] USATarget CellsSlightNormalMercer County Community HospitalComment on above:Performed By: #### PTT, PT, SCAN CBC, CMP ####[facility] [address] [place] [id number] USAWBC (Bld) [#/Vol]12.2 10*3/uLHigh 4.5-11.0Mer[facility] Community HospitalComment on above:Performed By: #### PTT, PT, SCAN CBC, CMP ####[facility] [address] [place] [id number] USASerum or plasma alanine aminotransferase measurement without P-5'-P (enzymatic activiOrdered By: Ramakrishna Sandoval on 13-15-6931TMK No additional P-5'-P [Catalytic activity/Vol]17 U/E64-59TdcxjdvqqBarnesville Hospitalerum or plasma albumin/globulin mass ratioOrdered By: Ramakrishna Sandoval on 82-82-7964Aiatxsu/Globulin [Mass ratio]0.4 {ratio}Barnesville Hospitalerum or plasma alkaline phosphatase measurement (enzymatic activity/volume)Ordered By: Ramakrishna Sandoval on 63-99-9019WUQ [Catalytic activity/Vol]144 U/C17-38MxmnqdgxnBarnesville Hospitalerum or plasma anion gap determinationOrdered By: Ramakrishna Sandoval on 16-84-6891Tgyud gap [Moles/Vol]13.1 mmol/L6.0-15.0Barnesville Hospitalerum or plasma aspartate aminotransferase measurement (enzymatic activity/volume)Ordered By: Ramakrishna Sandoval on 62-98-6649NBW [Catalytic activity/Vol]29 U/R32-60SdwtxbyryBarnesville Hospitalerum or plasma calcium measurement (mass/volume)Ordered By: Ramakrishna Sandoval on 81-12-0470Ntjdisf [Mass/Vol]7.9 mg/dL8.2-10.2FMercy Health Anderson Hospitalerum or plasma chloride measurement (moles/volume) Ordered By: Ramakrishna Sandoval on 73-43-0615Bsooenqm [Moles/Vol]108 mmol/L95-114 Barnesville Hospitalerum or plasma glucose measurement (mass/volume)Ordered By: Ramakrishna Sandoval on 85-43-2041Yguhlhe [Mass/Vol]115 mg/cZ56-142JucutikgcMercer County Community HospitalComment on above:ADA recommended reference range Random Glucose Reference Range is dependent on time and content of last meal. Glucose of more than 200 mg/dL in a nonstressed, ambulatory subject supports the diagnosis of Diabetes Mellitus.ADA recommended reference rangeRandom Glucose Reference Range is dependent on time and content of last meal. Glucose of more than 200 mg/dL in a nonstressed, ambulatory subject supports the diagnosisof Diabetes Mellitus.Serum or plasma potassium measurement (moles/volume)Ordered By: Ramakrishna Sandoval on 75-01-5938Dutfwthia [Moles/Vol]4.3 mmol/L3.5-5.1 Barnesville Hospitalerum or plasma sodium measurement (moles/volume)Ordered By: Ramakrishna Sandoval on 34-66-9270Jxsipz [Moles/Vol]136 mmol/Y139-887KpqdzdetcBarnesville Hospitalerum or plasma total bilirubin measurement (mass/volume)Ordered By: Ramakrishna Sandoval on 77-56-9401Kckgabyeg [Mass/Vol]0.4 mg/dL0.3-1.2FMercy Health Anderson Hospitalerum or plasma total carbon dioxide measurement (moles/volume)Ordered By: Ramakrishna Sandoval on 89-12-4021MR9 [Moles/Vol]19.2 mmol/L22.0-30.0[facility] Serum or plasma urea nitrogen measurement (mass/volume)Ordered By: Ramakrishna Sandoval on 29-43-7925Thfv nitrogen [Mass/Vol]38 mg/dL9-23Mer[facility] County Community HospitalTarget cellsOrdered By: Ramakrishna Sandoval on 74-65-3690Xglfun cells LM Ql (Bld)SlightMercer County Community HospitalBasic Metabolic Panelon 81-92-3930Cedpinx [Mass/Vol]8.1 mg/dLLow8.2-10.2FProMedica Defiance Regional HospitalComment on above:Performed By: #### SCAN CBC, BMP ####[facility] [address] [place] [address] USAChloride [Moles/Vol]105 mmol/L Ovjctl17-721YaunqoecjMercer County Community HospitalComment on above:Performed By: #### SCAN CBC, BMP ####[facility] [place] [address] USACO2 [Moles/Vol]23.6 mmol/XQgiala43.0-30.0Mercer County Community HospitalComment on above:Performed By: #### SCAN CBC, BMP ####[address] [place] [address] USACreatinine [Mass/Vol]3.41 mg/dLHigh0.64-1.27Mer[facility] County Community HospitalComment on above:Performed By: #### SCAN CBC, BMP ####[address] [place] [address] USACreatinine Clr Calc Dzkhjcem13.89NoProvidence HospitalComment on above:Result Comment: PERFORMED BY:[address] [place], [place] [phone] MEDICAL DIRECTORCHRISTO PINO M.D.Performed By: #### SCAN CBC, BMP ####[address] [address] USAEstimated GFR ( Feqdlli16IydbzcEbnlctwcfPremier HealthComment on above:Result Comment: GFR estimated reference range: According to KDOQI guidelines, <60 ml/min/1.73m2 is sufficient to diagnose a patient with chronic kidney disease. Performed By: #### SCAN CBC, BMP ####[address] [place] [address] USAEstimated GFR (Non- Nz61HartkgQbfcrqpoqPremier HealthComment on above:Performed By: #### SCAN CBC, BMP ####[address] [address] USAGlucose [Mass/Vol]104 mg/oDJrie68-209TzycrukzyMercer County Community HospitalComment on above: Result Comment: Random Glucose Reference Range is dependent on time and content of last meal. Glucose of more than 200 mg/dL in a nonstressed, ambulatory subject supports the diagnosis of Diabetes Mellitus. ADA recommended reference rangePerformed By: #### SCAN CBC, BMP ####[address] [address] USAPotassium [Moles/Vol]3.8 mmol/LNormal3.5-5.1 [facility] Community HospitalComment on above:Performed By: #### SCAN CBC, BMP ####[facility] [address] [place] [address] [place] Sodium [Moles/Vol]138 mmol/IGschpb988-913GocnenpgiMercer County Community Hospital Comment on above:Performed By: #### SCAN CBC, BMP ####[facility] [address] [place] [id number] USAUrea nitrogen [Mass/Vol]45 mg/dLHigh 9-23Mer[facility] County Community HospitalComment on above:Performed By: #### SCAN CBC, BMP ####[facility] [address] [place] [id number] USABasophils Auto (Bld) [#/Vol]Ordered By: Chris Mccarthy on 11-21-2021 Basophils (Bld) [#/Vol]0.2 10*3/uL0.0-0.2FProMedica Defiance Regional Hospital Basophils/100 WBC Auto (Bld)Ordered By: Chris Mccarthy on 11-21-2021 Basophils/100 WBC (Bld)1.2 %.[facility] County Community HospitalBlood anisocytosis detectionOrdered By: Chris Mccarthy on 69-58-2691Ljymxewamvlf Ql (Bld) SlightMercer County Community HospitalBlood hemoglobin measurement (mass/volume)Ordered By: Chris Mccarthy on 88-81-1448Guxtkjjjgp (Bld) [Mass/Vol]8.3 g/dL13.0-17.0Mer[facility] County Community HospitalBlood leukocytes automated count (number/volume)Ordered By: Chris Mccarthy on 02-30-3316XVN (Bld) [#/Vol]15.6 10*3/uL4.5-11.0Mer[facility] County Community HospitalCreatinine and Glomerular filtration rate.predicted panel (S/P/Bld)Ordered By: Chris Mccarthy on 69-76-7641Exugmflkzh [Mass/Vol]3.41 mg/dL0.64-1.27Mer[facility] County Community HospitalEosinophils Auto (Bld) [#/Vol]Ordered By: Chris Mccarthy on 13-42-6105Matptrbyxri (Bld) [#/Vol]0.5 10*3/uL0.0-0.45Mer[facility] County Community HospitalEosinophils/100 WBC Auto (Bld)Ordered By: Chris Mccarthy on 90-11-1813Hqkqijcwdfv/100 WBC (Bld)3.4 %.[facility] County Community HospitalErythrocyte distribution width Auto (RBC) [Ratio]Ordered By: Chris Mccarthy on 08-47-2777Ccsuyjjrvzp distribution width (RBC) [Ratio]17.7 % 12.0-14.8Mercer County Community HospitalEstimated glomerular filtration rate (GFR) non- AmericanOrdered By: Chris Mccarthy on 56-93-1639FBY/1.73 sq M.predicted among non-blacks MDRD (S/P/Bld) [Vol rate/Area]18 mL/Min [facility] Community HospitalGlucose Glucometer (BldC) [Mass/Vol]Ordered By: Landon Grullon on 26-42-3781Jawnwgz [Mass/Vol]155 mg/dLMercer County Community HospitalComment on above:Random Glucose Reference Range is dependent on time and content of last meal. Glucose of more than 200 mg/dL in a nonstressed, ambulatory subject supports the diagnosis of Diabetes Mellitus.Glucose Poct Glucometerson 45-30-9461Lkgnnaa [Mass/Vol]155 mg/dLNoProvidence HospitalComment on above:Result Comment: Random Glucose Reference Range is dependent on time and content of last meal. Glucose of more than 200 mg/dL in a nonstressed, ambulatory subject supports the diagnosis of Diabetes Jenny litus.PERFORMED BY:[address] [place], [place] [phone] MEDICAL DIRECTORCHRISTO PINO M.D.Performed By: #### GLULS ####Point of Care testing,Glucose [Mass/Vol]160 mg/dLNoProvidence HospitalComment on above:Result Comment: Random Glucose Reference Range is dependent on time and content of last meal. Glucose of more than 200 mg/dL in a nonstressed, ambulatory subject supports the diagnosis of Diabetes Mellitus.PERFORMED BY:[facility] [place], [place] [phone] MEDICAL DIRECTORCHRISTO PINO M.D.Performed By: #### GLULS ####Point of Care testing,Mvqywco0Xoy1: Cleaned MeterNoProvidence HospitalComment on above:Result Comment: PERFORMED BY:[address] [address] [address] INFANTEJeanetteMIGUELANGELAUMSVILLE, [place] [phone] MEDICAL DIRECTORCHRISTO PINO M.D.Performed By: #### GLULS ####Point of Care testing,Glucose [Mass/Vol]110 mg/dLPremier Health Comment on above:Result Comment: Random Glucose Reference Range is dependent on time and content of last meal. Glucose of more than 200 mg/dL in a nonstressed, ambulatory subject supports the diagnosis of Diabetes Mellitus.Performed By: #### GLULS ####Point of Care testing,Hematocrit Auto (Bld) [Volume fraction] Ordered By: Chris Mccarthy on 92-87-2664Jzizeribjm (Bld) [Volume fraction] 25.9 %38.8-50.0[facility] Community HospitalHypochromia detectionOrdered By: Chris Mccarthy on 04-04-9536Gafrbkcwlul Ql (Bld)SlightMercer County Community HospitalLaboratory - Hematology and Cell countsOrdered By: Chris Mccarthy on 68-84-9769Udxqhexyg RBC/100 WBC (Bld) [Ratio]0.1 %0-0.5FProMedica Defiance Regional HospitalLymphocytes Auto (Bld) [#/Vol]Ordered By: Chris Mccarthy on 79-33-7172Mktzozrlabr (Bld) [#/Vol]5.0 10*3/uL1.00-4.8Mer[facility] County Community HospitalLymphocytes/100 WBC Auto (Bld)Ordered By: Chris Mccarthy on 02-15-4226Bnbttmxohll/100 WBC (Bld)31.7 %.[facility] HospitalH Auto (RBC) [Entitic mass]Ordered By: Chris Mccarthy on 63-95-7397BCE (RBC) [Entitic mass]27.0 pg27.5-35.2FProMedica Defiance Regional HospitalMCHC Auto (RBC) [Mass/Vol]Ordered By: Chirs Mccarthy on 11-21-2021 MCHC (RBC) [Mass/Vol]32.0 g/dL32.5-35.6FProMedica Defiance Regional HospitalMCV Auto (RBC) [Entitic vol]Ordered By: Chris Mccarthy on 04-40-2162UDY (RBC) [Entitic vol]84.4 fL83.5-101Mer[facility] County Community HospitalMonocytes Auto (Bld) [#/Vol]Ordered By: Chris Mccarthy on 71-37-4206Nbnlfqbbu (Bld) [#/Vol]1.5 10*3/uL0.0-0.8Mer[facility] County Community HospitalMonocytes/100 WBC Auto (Bld)Ordered By: Chris Mccarthy on 67-44-7825Iolkqtzbf/100 WBC (Bld)9.6 % .[facility] County Community HospitalNeutrophils Auto (Bld) [#/Vol]Ordered By: Chris Mccarthy on 16-31-0436Ussixcfkaud (Bld) [#/Vol]8.4 10*3/uL1.8-7.7 [facility] HospitalNeutrophils/100 WBC Auto (Bld)Ordered By: Chris Mccarthy on 27-64-5978Jtbotynickw/100 WBC (Bld)54.1 %.[facility] HospitalNo Panel InformationOrdered By: Landon Grullon on 59-51-7034Qrhspti Glucose CommentGlu2: cleaned meterMercer County Community HospitalNo Panel InformationOrdered By: Chris Mccarthy on 11-21-2021 Estimated GFR ()22 mL/MinMercer County Community Hospital Comment on above:GFR estimated reference range: According to KDOQI guidelines, <60 ml/min/1.73m2 is sufficient todiagnose a patient with chronic kidney disease.Pharmacy Creatinine Clearance (Chem25.89[facility] Community HospitalPlatelet EstimateNormalNormParkwood HospitalPlatelet Morphology CommentNormalNoMarion Hospitalchistocytes SlightMercer County Community HospitalPlatelet mean volume Auto (Bld) [Entitic vol]Ordered By: Chris Mccarthy on 05-69-3205Ixkklbql mean volume (Bld) [Entitic vol]10.6 fL6.6-10.1FProMedica Defiance Regional HospitalPlatelets Auto (Bld) [#/Vol]Ordered By: Chris Mccarthy on 72-68-4788Evpqrhuxd (Bld) [#/Vol]263 10*3/xX943-894QtkrdjgwoMercer County Community HospitalRB Auto (Bld) [#/Vol] Ordered By: Chris Mccarthy on 26-86-1214UGY (Bld) [#/Vol]3.06 10*6/uL 3.90-5.60Mer[facility] County Community HospitalRB morphologyOrdered By: Chris Mccarthy on 38-47-9786DRW morphology finding Nom (Bld)N/[facility] Hospitalcan and CBCon 19-25-4014Vilapjvqydhv Ql (Bld)SlightNormal [facility] HospitalComment on above:Performed By: #### SCAN CBC, BMP ####[facility] [address] [place] [address] [place] Basophils (Bld) [#/Vol]0.2 10*3/uLNormal0.0-0.2FProMedica Defiance Regional Hospital Comment on above:Performed By: #### SCAN CBC, BMP ####[facility] [address] [place] [address] USABasophils/100 WBC (Bld)1.2 %Normal. [facility] Community HospitalComment on above:Performed By: #### SCAN CBC, BMP ####[address] [place] [address] [place] Eosinophils (Bld) [#/Vol]0.5 10*3/uLHigh0.0-0.45Mer[facility] Community HospitalComment on above:Performed By: #### SCAN CBC, BMP ####[address] [address] USAEosinophils/100 WBC (Bld)3.4 % Normal.[facility] County Community HospitalComment on above:Performed By: #### SCAN CBC, BMP ####[address] [address] USAErythrocyte distribution width (RBC) [Ratio]17.7 %High12.0-14.8Mer[facility] County Community HospitalComment on above:Performed By: #### SCAN CBC, BMP ####[address] [address] [place] Hematocrit (Bld) [Volume fraction]25.9 %Low38.8-50.0Mer[facility] Community HospitalComment on above:Performed By: #### SCAN CBC, BMP ####[address] [address] USAHemoglobin (Bld) [Mass/Vol]8.3 g/dLLow13.0-17.0Mer[facility] Community HospitalComment on above:Performed By: #### SCAN CBC, BMP ####[address] [address] USAHypochromasiaSlightNormalMercer County Community HospitalComment on above:Performed By: #### SCAN CBC, BMP ####[address] [address] USALymphocytes (Bld) [#/Vol]5.0 10*3/uLHigh 1.00-4.8[facility] Community HospitalComment on above:Performed By: #### SCAN CBC, BMP ####[address] [address] USALymphocytes/100 WBC (Bld)31.7 %Normal.[facility] Comment on above:Performed By: #### SCAN CBC, BMP ####[address] [place] [address] [facility] ([facility]BC) [Entitic mass]27.0 pgLow 27.5-35.2FProMedica Defiance Regional HospitalComment on above:Performed By: #### SCAN CBC, BMP ####[address] [address] [facility] (RBC) [Entitic vol]84.4 wXNymtjc72.5-101Mer[facility] County Community HospitalComment on above:Performed By: #### SCAN CBC, BMP ####[address] [address] USAMean Corpuscular HGB Conc32.0 g/dLLow32.5-35.6FProMedica Defiance Regional HospitalComment on above:Performed By: #### SCAN CBC, BMP ####[address] [address] USAMonocytes (Bld) [#/Vol]1.5 10*3/uLHigh0.0-0.8[facility] Community HospitalComment on above:Performed By: #### SCAN CBC, BMP ####[address] [address] USAMonocytes/100 WBC (Bld)9.6 %Normal.[facility] Community HospitalComment on above:Performed By: #### SCAN CBC, BMP ####[address] [address] USANeutrophils (Bld) [#/Vol]8.4 10*3/uLHigh1.8-7.7FProMedica Defiance Regional HospitalComment on above:Performed By: #### SCAN CBC, BMP ####[address] [address] USANeutrophils/100 WBC (Bld)54.1 %Normal.[facility] County Community HospitalComment on above:Performed By: #### SCAN CBC, BMP ####[address] [address] USANucleated RBC/100 WBC (Bld) [Ratio]0.1 %Normal0-0.5 [facility] Community HospitalComment on above:Performed By: #### SCAN CBC, BMP ####[address] [address] [place] Platelet EstimateNormalNormOhioHealth Arthur G.H. Bing, MD, Cancer CenterComment on above:Performed By: #### SCAN CBC, BMP ####[address] [address] USAPlatelet mean volume (Bld) [Entitic vol]10.6 fLHigh6.6-10.1FProMedica Defiance Regional HospitalComment on above:Performed By: #### SCAN CBC, BMP ####[address] [address] USAPlatelet MorphologyNormalNoUniversity Hospitals Health SystemComment on above:Result Comment: PERFORMED BY:[address] [place], [place] [phone] MEDICAL DIRECTORCHRISTO PINO M.D.Performed By: #### SCAN CBC, BMP ####[address] [address] USAPlatelets (Bld) [#/Vol]263 10*3/dVCansam640-480CgihgkbzpMercer County Community HospitalComment on above:Performed By: #### SCAN CBC, BMP ####[address] [address] USARBC (Bld) [#/Vol]3.06 10*6/uLLow3.90-5.60[facility] Community HospitalComment on above:Performed By: #### SCAN CBC, BMP ####[address] [address] [place] SchistocytesSlightNoProvidence HospitalComment on above: Performed By: #### SCAN CBC, BMP ####[address] [address] USATarget CellsModeratePremier HealthComment on above:Performed By: #### SCAN CBC, BMP ####[facility] [address] [place] [address] USAWBC (Bld) [#/Vol]15.6 10*3/uL High4.5-11.0[facility] Community HospitalComment on above:Performed By: #### SCAN CBC, BMP ####[facility] [address] [place] [address] USASerum or plasma calcium measurement (mass/volume)Ordered By: Chris Mccarthy on 79-99-3966Unuzlqj [Mass/Vol]8.1 mg/dL8.2-10.2FMercy Health Anderson Hospitalerum or plasma chloride measurement (moles/volume)Ordered By: Chris Mccarthy on 86-16-7097Hiyakgme [Moles/Vol]105 mmol/Z32-375GzafiwrnfBarnesville Hospitalerum or plasma glucose measurement (mass/volume)Ordered By: Chris Mccarthy on 48-26-2494Zxbbcwy [Mass/Vol]104 mg/nN56-580KoagusrkrMercer County Community HospitalComment on above:ADA recommended reference range Random Glucose Reference Range is dependent on time and content of last meal. Glucose of more than 200 mg/dL in a nonstressed, ambulatory subject supports the diagnosis of Diabetes Mellitus.ADA recommended reference rangeRandom Glucose Reference Range is dependent on time and content of last meal. Glucose of more than 200 mg/dL in a nonstressed, ambulatory subject supports the diagnosisof Diabetes Mellitus.Serum or plasma potassium measurement (moles/volume)Ordered By: Chris Mccarthy on 59-20-2281Hkrqiohap [Moles/Vol]3.8 mmol/L3.5-5.1 Barnesville Hospitalerum or plasma sodium measurement (moles/volume)Ordered By: Chris Mccarthy on 35-73-0980Ggnhqu [Moles/Vol] 138 mmol/W631-011XtiuizejpBarnesville Hospitalerum or plasma total carbon dioxide measurement (moles/volume)Ordered By: Chris Mccarthy on 11-21-2021 CO2 [Moles/Vol]23.6 mmol/L22.0-30.0Barnesville Hospitalerum or plasma urea nitrogen measurement (mass/volume)Ordered By: Chris Mccarthy on 52-98-5545Ewwi nitrogen [Mass/Vol]45 mg/dL9-23[facility] HospitalTarget cellsOrdered By: Chris Mccarthy on 53-09-8431Wpavzp cells LM Ql (Bld)ModerateMercer County Community HospitalXR chest 1V portableon 38-16-8692RF chest 1V portableNoProvidence HospitalActivated partial thromboplastin time (aPTT) in platelet poor plasma by coagulation a Ordered By: Riya Pitt on 28-52-6347hFDD Coag (PPP) [Time]34.2 s25.1-36.5 [facility] HospitalBasic Metabolic Panelon 23-70-3940Tenvucu [Mass/Vol]7.6 mg/dLLow8.2-10.2FProMedica Defiance Regional HospitalComment on above: Performed By: #### BMP, SCAN CBC ####[facility] [address] [place] [address] USAChloride [Moles/Vol]106 mmol/CXidwyp87-727VrgmyzeosMercer County Community HospitalComment on above:Performed By: #### BMP, SCAN CBC ####[facility] [address] [place] [address] USACO2 [Moles/Vol]22.7 mmol/KDulpbl90.0-30.0[facility] Community HospitalComment on above:Performed By: #### BMP, SCAN CBC ####[facility] [address] [place] [address] USACreatinine [Mass/Vol]3.43 mg/dLHigh0.64-1.27 [facility] HospitalComment on above:Performed By: #### BMP, SCAN CBC ####[facility] [address] [place] [address] [place] Creatinine Clr Calc Mbysjtzx60.89NoProvidence HospitalComment on above:Result Comment: PERFORMED BY:[address] [place], [place] [phone] MEDICAL DIRECTORCHRISTO PINO M.D.Performed By: #### BMP, SCAN CBC ####[facility] [address] [place] [address] USAEstimated GFR ( Vroulrg41ZfpykuRegency Hospital ToledoComment on above:Result Comment: GFR estimated reference range: According to KDOQI guidelines, <60 ml/min/1.73m2 is sufficient to diagnose a patient with chronic kidney disease.Performed By: #### BMP, SCAN CBC ####[facility] [address] [place] [address] [place] Estimated GFR (Non- Ra66VbffmlJogmjlsumPremier HealthComment on above:Performed By: #### BMP, SCAN CBC ####[facility] [address] [place] [address] USAGlucose [Mass/Vol]106 mg/eSKetq83-106LjkucrkvfMercer County Community HospitalComment on above:Result Comment: Random Glucose Reference Range is dependent on time and content of last meal. Glucose of more than 200 mg/dL in a nonstressed, ambulatory subject supports the diagnosis of Diabetes Mellitus. ADA recommended reference rangePerformed By: #### BMP, SCAN CBC ####[facility] [address] [place] [address] [place] Potassium [Moles/Vol]3.5 mmol/LNormal3.5-5.1FProMedica Defiance Regional Hospital Comment on above:Performed By: #### BMP, SCAN CBC ####[facility] [address] [place] [address] USASodium [Moles/Vol]136 mmol/LNormal 136-146Mer[facility] County Community HospitalComment on above:Performed By: #### BMP, SCAN CBC ####[facility] [address] [place] [address] USAUrea nitrogen [Mass/Vol]41 mg/dLHigh9-23[facility] Comment on above:Performed By: #### BMP, SCAN CBC ####[facility] [address] [place] [address] USAGlucose Poct Glucometerson 11-20-2021 Gsxgvcb0Szd3: Cleaned Cherrington HospitalComment on above:Result Comment: PERFORMED BY:[address] [address] [address] LARKINMIGUELANGELAU[place], [place] [phone] MEDICAL MOOSE PINO M.D. Performed By: #### GLULS ####Point of Care testing,Glucose [Mass/Vol]91 mg/dL Premier HealthComment on above:Result Comment: Random Glucose Reference Range is dependent on time and content of last meal. Glucose of more than 200 mg/dL in a nonstressed, ambulatory subject supports the diagnosis of Diabetes Mellitus.Performed By: #### GLULS ####Point of Care testing,Glucose [Mass/Vol]127 mg/dLPremier Health Comment on above:Result Comment: Random Glucose Reference Range is dependent on time and content of last meal. Glucose of more than 200 mg/dL in a nonstressed, ambulatory subject supports the diagnosis of Diabetes Mellitus.PERFORMED BY:[address] BRITTNYEllenJeanetteMIGUELANGEL, [place] [phone] MEDICAL MOOSE PINO M.D.Performed By: #### GLULS ####Point of Care testing,Glucose [Mass/Vol]180 mg/dLPremier HealthComment on above:Result Comment: Random Glucose Reference Range is dependent on time and content of last meal. Glucose of more than 200 mg/dL in a nonstressed, ambulatory subject supports the diagnosis of Diabetes Mellitus.PERFORMED BY:[address] [place], [place] [phone] MEDICAL MOOSE PINO M.D.Performed By: #### GLULS ####Point of Care testing,Glucose [Mass/Vol]120 mg/dLPremier HealthComment on above:Result Comment: Random Glucose Reference Range is dependent on time and content of last meal. Glucose of more than 200 mg/dL in a nonstressed, ambulatory subject supports the diagnosis of Diabetes Mellitus.PERFORMED BY:[address] [address]ANESCALVIN GRAMAJOUSKYAUMSVILLE, [place] [phone] DAXA PINO M.D.Performed By: #### GLULS ####Point of Care testing,Emoingl5Hgu5: Cleaned MeterNoProvidence HospitalComment on above:Result Comment: PERFORMED BY:[address] [address] [address] LARKINMIGUELANGELAUMSVILLE, [place] [phone] MEDICAL DIRECTORCHRISTO PINO M.D.Performed By: #### GLULS ####Point of Care testing,Glucose [Mass/Vol]128 mg/dLPremier Health Comment on above:Result Comment: Random Glucose Reference Range is dependent on time and content of last meal. Glucose of more than 200 mg/dL in a nonstressed, ambulatory subject supports the diagnosis of Diabetes Mellitus.Performed By: #### GLULS ####Point of Care testing,Laboratory - CoagulationOrdered By: Riya Pitt on 46-27-6379NB Coag (PPP) [Time]12.7 s9.0-12.9[facility] Community HospitalPartial Thromboplastin Timeon 08-28-4605gETB Coag (Bld) [Time]34.2 s Zayrsz20.1-36.5FProMedica Defiance Regional HospitalComment on above:Result Comment: PERFORMED BY:[address] [address] GRAMAJOUSKYAUMSVILLE, [place] [phone] MEDICAL DIRECTORCHRISTO PINO M.D.Performed By: #### PTT, PT ####[facility] [address] [place] [address] USAPlatelet poor plasma international normalized ratio (INR) by coagulation assay (relatOrdered By: Riya Pitt on 81-79-5227QWW Coag (PPP) [Relative time]1.1 {INR}[facility] HospitalComment on above:INR Therapeutic Range A) Pre- and Peroperative OAT started two weeks before surgery. NOT HIP SURGERY: 1.5 - 2.5 HIP SURGERY: 2 - 3 B) Primary and secondary prevention of venous THROMBOSIS: 2 - 3 C) Active venous thrombosis, pulmonary embolism and prevention of recurrent venous thrombosis: 2 - 3 D) Prevention of arterial thromboembolism including patients with mechanical heart valves: 3 - 4.5INR Therapeutic Range A) Pre- and Peroperative OAT started two weeks before surgery. NOT HIP SURGERY: 1.5 - 2.5 HIP SURGERY: 2 - 3B) Primary and secondary prevention of venous THROMBOSIS: 2 - 3C) Active venous thrombosis, pulmonary embolismand prevention of recurrent venous thrombosis: 2 - 3D) Prevention of arterial thromboembolismincluding patients with mechanical heart valves: 3 - 4.5 Prothrombin Time INRon 67-76-1468DMQ Coag (PPP) [Relative time]1.1 {INR}Normal [facility] HospitalComment on above:Result Comment: INR Therapeutic Range A) Pre- and [...] patients with mechanical heart valves: 3 - 4.5Performed By: #### PTT, PT ####[address] [address] USAPT Coag (PPP) [Time]12.7 sNormal9.0-12.9[facility] HospitalComment on above:Performed By: #### PTT, PT ####[address] [address] USAScan and CBCon 29-75-0527Dsofxovfqubd Ql (Bld)ModerateNormalMercer County Community Hospital Comment on above:Performed By: #### BMP, SCAN CBC ####[address] [address] USABasophils (Bld) [#/Vol]0.1 10*3/uL Normal0.0-0.2FProMedica Defiance Regional HospitalComment on above:Performed By: #### BMP, SCAN CBC ####[address] [address] USABasophils/100 WBC (Bld)0.8 %Normal.[facility] Comment on above:Performed By: #### BMP, SCAN CBC ####[address] [address] USAEosinophils (Bld) [#/Vol]0.4 10*3/uL Normal0.0-0.45[facility] HospitalComment on above:Performed By: #### BMP, SCAN CBC ####[address] [address] USAEosinophils/100 WBC (Bld)2.9 %Normal.[facility] Community HospitalComment on above:Performed By: #### BMP, SCAN CBC ####[address] [address] USAErythrocyte distribution width (RBC) [Ratio]17.9 %High12.0-14.8[facility] Community HospitalComment on above:Performed By: #### BMP, SCAN CBC ####[address] [address] USAHematocrit (Bld) [Volume fraction]24.4 %Low 38.8-50.0[facility] Community HospitalComment on above:Performed By: #### BMP, SCAN CBC ####[address] [address] USAHemoglobin (Bld) [Mass/Vol]7.7 g/dLLow13.0-17.0[facility] HospitalComment on above:Performed By: #### BMP, SCAN CBC ####[address] [address] USALymphocytes (Bld) [#/Vol]5.6 10*3/uLHigh1.00-4.8[facility] HospitalComment on above: Performed By: #### BMP, SCAN CBC ####[address] [address] USALymphocytes/100 WBC (Bld)38.6 %Normal.[facility] Community HospitalComment on above:Performed By: #### BMP, SCAN CBC ####[address] [address] USAMCH (RBC) [Entitic mass]27.0 pgLow27.5-35.2FProMedica Defiance Regional HospitalComment on above:Performed By: #### BMP, SCAN CBC ####[facility] [address] [place] [address] USAMCV (RBC) [Entitic vol]85.5 vELkafqx73.5-101 [facility] HospitalComment on above:Performed By: #### BMP, SCAN CBC ####[facility] [address] [place] [address] [place] Mean Corpuscular HGB Conc31.5 g/dLLow32.5-35.6FProMedica Defiance Regional Hospital Comment on above:Performed By: #### BMP, SCAN CBC ####[facility] [address] [place] [address] USAMonocytes (Bld) [#/Vol]1.3 10*3/uLHigh 0.0-0.8[facility] HospitalComment on above:Performed By: #### BMP, SCAN CBC ####[address] [address] USAMonocytes/100 WBC (Bld)8.6 %Normal.[facility] HospitalComment on above:Performed By: #### BMP, SCAN CBC ####[address] [address] USANeutrophils (Bld) [#/Vol]7.2 10*3/uLNormal 1.8-7.7FProMedica Defiance Regional HospitalComment on above:Performed By: #### BMP, SCAN CBC ####[address] [address] USANeutrophils/100 WBC (Bld)49.1 %Normal.[facility] Comment on above:Performed By: #### BMP, SCAN CBC ####[address] [address] USANucleated RBC/100 WBC (Bld) [Ratio] 0.2 %Normal0-0.5FProMedica Defiance Regional HospitalComment on above:Performed By: #### BMP, SCAN CBC ####[address] [address] USAPlatelet EstimateNormalNormalNormalMercer County Community Hospital Comment on above:Performed By: #### BMP, SCAN CBC ####[address] [address] USAPlatelet mean volume (Bld) [Entitic vol]9.7 fLNormal6.6-10.1FProMedica Defiance Regional HospitalComment on above: Performed By: #### BMP, SCAN CBC ####[address] [address] USAPlatelet MorphologyNormalNormOhioHealth Arthur G.H. Bing, MD, Cancer CenterComment on above:Result Comment: PERFORMED BY:[address] [place]JeanetteDECAT[place], [place] [phone] MEDICAL DIRECTORCHRISTO PINO M.D.Performed By: #### BMP, SCAN CBC ####[address] [address] USAPlatelets (Bld) [#/Vol]240 10*3/lWXhaqko098-131BwtprrxobMercer County Community HospitalComment on above:Performed By: #### BMP, SCAN CBC ####[address] [address] USARBC (Bld) [#/Vol]2.85 10*6/uLLow3.90-5.60 [facility] HospitalComment on above:Performed By: #### BMP, SCAN CBC ####[address] [address] USA SchistocytesSlightPremier HealthComment on above: Performed By: #### BMP, SCAN CBC ####[address] [address] USATarget CellsModeratePremier HealthComment on above:Performed By: #### BMP, SCAN CBC ####[address] [address] USAWBC (Bld) [#/Vol]14.6 10*3/uL High4.5-11.0[facility] HospitalComment on above:Performed By: #### BMP, SCAN CBC ####[address] [place] [address] USASerum or plasma vancomycin measurement (mass/volume)Ordered By: Chris Mccarthy on 74-50-9034Akycfxdjef [Mass/Vol]24.3 ug/mL5.0-20.0 [facility] HospitalComment on above:Last dose: -Vancomycin,Random on 66-87-1389Tmlmoxtwed,Wypymy62.3 ug/mLHigh5.0-20.0[facility] HospitalComment on above:Order Comment: Date of last dose?: 20211118 Time of last dose?: 899Result Comment: Last dose: -PERFORMED BY:[address] [place], [place] [phone] MEDICAL DIRECTORCHRISTO PINO M.D.Performed By: #### VANCR ####[address] [address] USABacterial blood cultureOrdered By: Ivan Springer on 53-70-2489Hekbgrbo identified Cx Nom (Bld)NO GROWTH 5 DAYS [facility] HospitalBasic Metabolic Panelon 45-96-3805Vjougjv [Mass/Vol]7.7 mg/dLLow8.2-10.2FProMedica Defiance Regional HospitalComment on above: Performed By: #### DIFF CBC, BMP ####[address] [address] USAChloride [Moles/Vol]106 mmol/KMmyicy20-571HazfkkfmbMercer County Community HospitalComment on above:Performed By: #### DIFF CBC, BMP ####[address] [address] USACO2 [Moles/Vol]21.8 mmol/LLow22.0-30.0[facility] HospitalCombeaumont hospital on above:Performed By: #### DIFF CBC, BMP ####[address] [place] [address] USACreatinine [Mass/Vol]3.38 mg/dLHigh0.64-1.27 [facility] HospitalComment on above:Performed By: #### DIFF CBC, BMP ####[address] [place] [address] [place] Creatinine Clr Calc Hstztwex92.58Premier HealthComment on above:Result Comment: PERFORMED BY:[address] [place], [place] [phone] MEDICAL DIRECTORCHRISTO PINO M.D.Performed By: #### DIFF CBC, BMP ####[address] [address] USAEstimated GFR ( Vdxauvh66OyycyqRegency Hospital ToledoComment on above:Result Comment: GFR estimated reference range: According to KDOQI guidelines, <60 ml/min/1.73m2 is sufficient to diagnose a patient with chronic kidney disease.Performed By: #### DIFF CBC, BMP ####[address] [address] [place] Estimated GFR (Non- Ad18DzlaucBalxksavaPremier HealthComment on above:Performed By: #### DIFF CBC, BMP ####[address] [address] USAGlucose [Mass/Vol]102 mg/yBMakh75-228WlakizvkgMercer County Community HospitalComment on above:Result Comment: Random Glucose Reference Range is dependent on time and content of last meal. Glucose of more than 200 mg/dL in a nonstressed, ambulatory subject supports the diagnosis of Diabetes Mellitus. ADA recommended reference rangePerformed By: #### DIFF CBC, BMP ####[address] [address] [place] Potassium [Moles/Vol]3.4 mmol/LLow3.5-5.1FProMedica Defiance Regional Hospital Comment on above:Performed By: #### DIFF CBC, BMP ####[address] [address] USASodium [Moles/Vol]135 mmol/LLow 136-146Mer[facility] Community HospitalComment on above:Performed By: #### DIFF CBC, BMP ####[address] [address] USAUrea nitrogen [Mass/Vol]40 mg/dLHigh9-23[facility] Comment on above:Performed By: #### DIFF CBC, BMP ####[facility] [address] [place] [address] USACT abdomen pelvis wo conon 11-19-2021 CT abdomen pelvis wo [facility] HospitalDiff and CBCon 58-17-9961Lhznbsuqrnta Ql (Bld)ModerateNoProvidence Hospital Comment on above:Performed By: #### DIFF CBC, BMP ####[facility] [address] [place] [address] USAEosinophils/100 WBC (Bld)4 %High1-3 [facility] HospitalComment on above:Performed By: #### DIFF CBC, BMP ####[facility] [address] [place] [address] [facility] Erythrocyte distribution width (RBC) [Ratio]18.1 %High12.0-14.8[facility] Community HospitalComment on above:Performed By: #### DIFF CBC, BMP ####[facility] [address] [place] [address] [place] Hematocrit (Bld) [Volume fraction]25.8 %Low38.8-50.0[facility] HospitalComment on above:Performed By: #### DIFF CBC, BMP ####[address] [address] USAHemoglobin (Bld) [Mass/Vol]8.2 g/dLLow13.0-17.0[facility] HospitalComment on above:Performed By: #### DIFF CBC, BMP ####[facility] [address] [place] [address] USAHypochromasiaSlightNoProvidence HospitalComment on above:Performed By: #### DIFF CBC, BMP ####[facility] [address] [place] [address] USALymphocytes/100 WBC (Bld)31 %Ibppou79-82 [facility] HospitalComment on above:Performed By: #### DIFF CBC, BMP ####[address] [place] [address] [facility] ([facility]BC) [Entitic mass]27.0 pgLow27.5-35.2FProMedica Defiance Regional HospitalComment on above:Performed By: #### DIFF CBC, BMP ####[address] [address] USAMCV (RBC) [Entitic vol]85.5 sWMlemhr04.5-101 [facility] HospitalComment on above:Performed By: #### DIFF CBC, BMP ####[address] [address] [place] Mean Corpuscular HGB Conc31.6 g/dLLow32.5-35.6FProMedica Defiance Regional Hospital Comment on above:Performed By: #### DIFF CBC, BMP ####[address] [address] USAMonocytes/100 WBC (Bld)7 %Normal2-11 [facility] HospitalComment on above:Performed By: #### DIFF CBC, BMP ####[address] [address] [place] Nucleated RBC/100 WBC (Bld) [Ratio]0.1 %Normal0-0.5FProMedica Defiance Regional HospitalComment on above:Result Comment: PERFORMED BY:[address] [place], [place] [phone] MEDICAL MOOSE PINO M.D.Performed By: #### DIFF CBC, BMP ####[address] [address] USAPlatelet EstimateNormalNormal NormalMercer County Community HospitalComment on above:Performed By: #### DIFF CBC, BMP ####[address] [address] USAPlatelet mean volume (Bld) [Entitic vol]9.5 fLNormal6.6-10.1FProMedica Defiance Regional HospitalComment on above:Performed By: #### DIFF CBC, BMP ####[address] [place] [address] [place] Platelet MorphologyNormalNormOhioHealth Arthur G.H. Bing, MD, Cancer CenterComment on above:Result Comment: PERFORMED BY:[address] [place], [place] [phone] MEDICAL DIRECTORCHRISTO PINO M.D. Performed By: #### DIFF CBC, BMP ####[address] [address] USAPlatelets (Bld) [#/Vol]227 10*3/lFSsleuh750-570 [facility] HospitalComment on above:Performed By: #### DIFF CBC, BMP ####[address] [address] USARBC (Bld) [#/Vol]3.02 10*6/uLLow3.90-5.60[facility] HospitalComment on above:Performed By: #### DIFF CBC, BMP ####[address] [address] USASchistocytesSlightNoProvidence HospitalComment on above:Performed By: #### DIFF CBC, BMP ####[address] [address] USASegmented neutrophils/100 WBC (Bld)58 %Wncoxg13-76ZaujawenjMercer County Community HospitalComment on above:Performed By: #### DIFF CBC, BMP ####[address] [address] USATarget CellsModerateNoProvidence HospitalComment on above:Performed By: #### DIFF CBC, BMP ####[address] [address] USAWBC (Bld) [#/Vol]14.8 10*3/uLHigh4.5-11.0[facility] HospitalComment on above:Performed By: #### DIFF CBC, BMP ####[address] [address] USAGlucose Poct Glucometerson 91-01-4805Ywkzmil8 Glu2: Cleaned MeterNoProvidence HospitalComment on above: Result Comment: PERFORMED BY:[address] [place], [place] [phone] MEDICAL DIRECTORCHRISTO PINO M.D. Performed By: #### GLULS ####Point of Care testing,Glucose [Mass/Vol]130 mg/dL Premier HealthComment on above:Result Comment: Random Glucose Reference Range is dependent on time and content of last meal. Glucose of more than 200 mg/dL in a nonstressed, ambulatory subject supports the diagnosis of Diabetes Mellitus.Performed By: #### GLULS ####Point of Care testing,Glucose [Mass/Vol]143 mg/dLPremier Health Comment on above:Result Comment: Random Glucose Reference Range is dependent on time and content of last meal. Glucose of more than 200 mg/dL in a nonstressed, ambulatory subject supports the diagnosis of Diabetes Mellitus.PERFORMED BY:[address] [place], [place] [phone] MEDICAL DIRECTORCHRISTO PINO M.D.Performed By: #### GLULS ####Point of Care testing,Glucose [Mass/Vol]166 mg/dLPremier HealthComment on above:Result Comment: Random Glucose Reference Range is dependent on time and content of last meal. Glucose of more than 200 mg/dL in a nonstressed, ambulatory subject supports the diagnosis of Diabetes Mellitus.PERFORMED BY:[address] LARKINM[place], [place] [phone] MEDICAL DIRECTORCHRISTO PINO M.D.Performed By: #### GLULS ####Point of Care testing,Glucose [Mass/Vol]128 mg/dLPremier HealthComment on above:Result Comment: Random Glucose Reference Range is dependent on time and content of last meal. Glucose of more than 200 mg/dL in a nonstressed, ambulatory subject supports the diagnosis of Diabetes Mellitus.PERFORMED BY:[address] [place], [place] [phone] MEDICAL DIRECTORCHRISTO PINO M.D.Performed By: #### GLULS ####Point of Care testing,Snbufag1Dcc5: Cleaned MeterNoProvidence HospitalComment on above:Result Comment: PERFORMED BY:[facility] [place], [place] [phone] MEDICAL DIRECTORCHRISTO PINO M.D.Performed By: #### GLULS ####Point of Care testing,Glucose [Mass/Vol]118 mg/dLPremier Health Comment on above:Result Comment: Random Glucose Reference Range is dependent on time and content of last meal. Glucose of more than 200 mg/dL in a nonstressed, ambulatory subject supports the diagnosis of Diabetes Mellitus.Performed By: #### GLULS ####Point of Care testing,Lymphocytes/100 WBC Auto (Bld)Ordered By: Chris Mccarthy on 72-95-9430Bcoaxnegyfm/100 WBC (Bld)31 %18-42Mer[facility] Community HospitalMonocyte %Ordered By: Chris Mccarthy on 11-19-2021 Monocytes/100 WBC (Bld)4 %1-3FProMedica Defiance Regional HospitalMonocytes/100 WBC Manual cnt (Bld)Ordered By: Chris Mccarthy on 71-66-8610Dhpwnikvi/100 WBC (Bld)7 %2-11Barnesville Hospitalegmented neutrophils/100 WBC Manual cnt (Bld)Ordered By: Chris Mccarthy on 27-58-0595Cqatbgmyw neutrophils/100 WBC (Bld)58 %50-70[facility] HospitalBasic Metabolic Panelon 36-31-3128Bbiiirv [Mass/Vol]7.6 mg/dLLow8.2-10.2FProMedica Defiance Regional HospitalComment on above:Performed By: #### CBC, BMP, DIFF CBC ####[facility] [address] [place]aquín [place] [address] [facility] Chloride [Moles/Vol]108 mmol/VMfgqmg97-939BffzsamgrMercer County Community Hospital Comment on above:Performed By: #### CBC, BMP, DIFF CBC ####[facility] [address] [place] [address] USACO2 [Moles/Vol]22.3 mmol/L Qvvwcp29.0-30.0[facility] Community HospitalComment on above:Performed By: #### CBC, BMP, DIFF CBC ####[address] [place] [address] USACreatinine [Mass/Vol]3.29 mg/dLHigh0.64-1.27 [facility] HospitalComment on above:Performed By: #### CBC, BMP, DIFF CBC ####[address] [place] [address] USACreatinine Clr Calc Bdoyhkuh81.18[facility] Comment on above:Result Comment: PERFORMED BY:[address] [place], [place] [phone] MEDICAL DIRECTORCHRISTO PINO M.D.Performed By: #### CBC, BMP, DIFF CBC ####[address] [address] USAEstimated GFR ( Ysqzxxa46CowjmxXkhevklwu[address] [place], [place] [address]Comment on above:Result Comment: GFR estimated reference range: According to KDOQI guidelines, <60 ml/min/1.73m2 is sufficient to diagnose a patient with chronic kidney disease. Performed By: #### CBC, BMP, DIFF CBC ####[facility] [place] [address] USAEstimated GFR (Non- Xg76BlulwcPiiectdmiPremier HealthComment on above:Performed By: #### CBC, BMP, DIFF CBC ####[address] [address] USAGlucose [Mass/Vol]82 mg/uWHlcxgd45-788YqaejorjxMercer County Community HospitalComment on above:Result Comment: Random Glucose Reference Range is dependent on time and content of last meal. Glucose of more than 200 mg/dL in a nonstressed, ambulatory subject supports the diagnosis of Diabetes Mellitus. ADA recommended reference rangePerformed By: #### CBC, BMP, DIFF CBC ####[address] [place] [address] USAPotassium [Moles/Vol]3.7 mmol/LNormal3.5-5.1FProMedica Defiance Regional HospitalComment on above:Performed By: #### CBC, BMP, DIFF CBC ####[address] [address] USASodium [Moles/Vol]138 mmol/HTeuqke723-015CfskjrnuqMercer County Community HospitalComment on above:Performed By: #### CBC, BMP, DIFF CBC ####[address] USAUrea nitrogen [Mass/Vol]41 mg/dLHigh9-23[facility] Community HospitalComment on above:Performed By: #### CBC, BMP, DIFF CBC ####[place] [address] USAComplete Blood Count Auto Diffon 75-08-9620Guaqzceymxy distribution width (RBC) [Ratio]17.8 %High12.0-14.8 [facility] HospitalComment on above:Performed By: #### CBC, BMP, DIFF CBC ####[place] [address] USAHematocrit (Bld) [Volume fraction]23.9 %Low38.8-50.0[facility] Community HospitalComment on above:Performed By: #### CBC, BMP, DIFF CBC ####[address] [facility] Hemoglobin (Bld) [Mass/Vol]7.5 g/dLLow13.0-17.0[facility] Comment on above:Performed By: #### CBC, BMP, DIFF CBC ####[address] USAMCH (RBC) [Entitic mass]27.2 pgLow27.5-35.2FProMedica Defiance Regional HospitalComment on above:Performed By: #### CBC, BMP, DIFF CBC ####[address] USAMCV (RBC) [Entitic vol]86.0 uHYuegfk81.5-101 [facility] HospitalComment on above:Performed By: #### CBC, BMP, DIFF CBC ####[address] [place] [address] USAMean Corpuscular HGB Conc31.6 g/dLLow32.5-35.6FProMedica Defiance Regional HospitalComment on above:Performed By: #### CBC, BMP, DIFF CBC ####[address] USANucleated RBC/100 WBC (Bld) [Ratio]0.2 %Normal0-0.5FProMedica Defiance Regional HospitalComment on above: Result Comment: PERFORMED BY:[address] [place], [place] [phone] MEDICAL DIRECTORCHRISTO PINO M.D. Performed By: #### CBC, BMP, DIFF CBC ####[address] [address] USAPlatelet mean volume (Bld) [Entitic vol]9.2 fL Normal6.6-10.1FProMedica Defiance Regional HospitalComment on above:Performed By: #### CBC, BMP, DIFF CBC ####[address] [address] USAPlatelets (Bld) [#/Vol]221 10*3/pQUyyjhi138-020 [facility] HospitalComment on above:Performed By: #### CBC, BMP, DIFF CBC ####[address] [address] USARBC (Bld) [#/Vol]2.78 10*6/uLLow3.90-5.60[facility] Comment on above:Performed By: #### CBC, BMP, DIFF CBC ####[address] [address] USAWBC (Bld) [#/Vol]15.3 10*3/uL High4.5-11.0[facility] HospitalComment on above:Performed By: #### CBC, BMP, DIFF CBC ####[address] [place] [address] USADiff and CBCon 22-57-4673Auqlslzmqruj Ql (Bld)ModerateNormal [facility] HospitalComment on above:Performed By: #### CBC, BMP, DIFF CBC ####[address] [address] USAEosinophils/100 WBC (Bld)7 %High1-3FProMedica Defiance Regional HospitalComment on above:Performed By: #### CBC, BMP, DIFF CBC ####[address] [address] USAHypochromasiaModeratePremier HealthCombeaumont hospital on above:Performed By: #### CBC, BMP, DIFF CBC ####[address] [address] [place] Lymphocytes/100 WBC (Bld)25 %Hyjdzy88-06MupiqqdjrMercer County Community HospitalCombeaumont hospital on above:Performed By: #### CBC, BMP, DIFF CBC ####[address] [address] USAMonocytes/100 WBC (Bld)2 %Normal2-11 [facility] HospitalCombeaumont hospital on above:Performed By: #### CBC, BMP, DIFF CBC ####[address] [address] USAPlatelet EstimateNormalNormalNoProvidence HospitalComment on above:Performed By: #### CBC, BMP, DIFF CBC ####[address] [address] USAPlatelet MorphologyNormalNormalrmal [facility] HospitalCombeaumont hospital on above:Result Comment: PERFORMED BY:[address] [place], [place] [phone] MEDICAL DIRECTORCHRISTO PINO M.D.Performed By: #### CBC, BMP, DIFF CBC ####[address] [address] USASegmented neutrophils/100 WBC (Bld)66 %Rntkoh80-33IrdbxhxghMercer County Community HospitalComment on above:Performed By: #### CBC, BMP, DIFF CBC ####[facility] [address] [place] [address] USATarget CellsModerate NormalMercer County Community HospitalComment on above:Performed By: #### CBC, BMP, DIFF CBC ####[facility] [address] [place] [address] USAGlucose Poct Glucometerson 78-48-7085Rlnkhtq6Jah3: Cleaned MeterNormal [facility] HospitalComment on above:Result Comment: PERFORMED BY:[address] [place], [place] [phone] MEDICAL DIRECTORCHRISTO PINO M.D.Performed By: #### GLULS ####Point of Care testing,Glucose [Mass/Vol]146 mg/dLPremier HealthComment on above:Result Comment: Random Glucose Reference Range is dependent on time and content of last meal. Glucose of more than 200 mg/dL in a nonstressed, ambulatory subject supports the diagnosis of Diabetes Mellitus. Performed By: #### GLULS ####Point of Care testing,Glucose [Mass/Vol]154 mg/dL [facility] HealthComment on above:Result Comment: Random Glucose Reference Range is dependent on time and content of last meal. Glucose of more than 200 mg/dL in a nonstressed, ambulatory subject supports the diagnosis of Diabetes Mellitus.PERFORMED BY:[address] [place], [place] [phone] MEDICAL DIRECTORCHRISTO PINO M.D.Performed By: #### GLULS ####Point of Care testing, Glucose [Mass/Vol]144 mg/dLPremier HealthCombeaumont hospital on above:Result Comment: Random Glucose Reference Range is dependent on time and content of last meal. Glucose of more than 200 mg/dL in a nonstressed, ambulatory subject supports the diagnosis of Diabetes Mellitus.PERFORMED BY:[address] [place], [place] [phone] MEDICAL DIRECTORCHRISTO PINO M.D.Performed By: #### GLULS ####Point of Care testing,Glucose [Mass/Vol]115 mg/dLPremier HealthComment on above:Result Comment: Random Glucose Reference Range is dependent on time and content of last meal. Glucose of more than 200 mg/dL in a nonstressed, ambulatory subject supports the diagnosis of Diabetes Mellitus.PERFORMED BY:[address] [place], [place] [phone] MEDICAL MOOSE PINO M.D.Performed By: #### GLULS ####Point of Care testing,Hcbikdf5Lae2: Cleaned MeterPremier HealthComment on above:Result Comment: PERFORMED BY:[address] LARKINM[place]ANG[place], [place] [phone] MEDICAL MOOSE PINO M.D.Performed By: #### GLULS ####Point of Care testing,Glucose [Mass/Vol]100 mg/dLPremier Health Comment on above:Result Comment: Random Glucose Reference Range is dependent on time and content of last meal. Glucose of more than 200 mg/dL in a nonstressed, ambulatory subject supports the diagnosis of Diabetes Mellitus.Performed By: #### GLULS ####Point of Care testing,Vancomycin,Randomon 11-18-2021 Vancomycin,Lokneb80.8 ug/mLNormal5.0-20.0[facility] Comment on above:Order Comment: Date of last dose?: 20211116 Time of last dose?: 0800Result Comment: Last dose: -PERFORMED BY:[address] [place], [place] [phone] DAXA PINO M.D.Performed By: #### VANCR ####[address] [place] [address] USABasic Metabolic Panelon 11-17-2021 Calcium [Mass/Vol]8.1 mg/dLLow8.2-10.2FProMedica Defiance Regional HospitalComment on above:Performed By: #### DIFF CBC, BMP ####[address] [place] [address] USAChloride [Moles/Vol]107 mmol/EDgkfgg02-422 [facility] HospitalComment on above:Performed By: #### DIFF CBC, BMP ####[address] [address] USACO2 [Moles/Vol]21.4 mmol/LLow22.0-30.0[facility] HospitalComment on above:Performed By: #### DIFF CBC, BMP ####[address] [address] USACreatinine [Mass/Vol]3.24 mg/dLHigh0.64-1.27 [facility] HospitalComment on above:Performed By: #### DIFF CBC, BMP ####[address] [address] [place] Creatinine Clr Calc Cnywkyfx87.17Premier HealthComment on above:Result Comment: PERFORMED BY:[address] [place], [place] [phone] MEDICAL MOOSE PINO M.D.Performed By: #### DIFF CBC, BMP ####[address] [address] USAEstimated GFR ( Uuvstjv21Dwjnvr [facility] HospitalComment on above:Result Comment: GFR estimated reference range: According to KDOQI guidelines, <60 ml/min/1.73m2 is sufficient to diagnose a patient with chronic kidney disease.Performed By: #### DIFF CBC, BMP ####[address] [address] [place] Estimated GFR (Non- An25AcjnjjNlykkfkxmPremier HealthComment on above:Performed By: #### DIFF CBC, BMP ####[address] [address] USAGlucose [Mass/Vol]58 mg/xOOwk19-012AifycjmrvMercer County Community HospitalComment on above:Result Comment: Random Glucose Reference Range is dependent on time and content of last meal. Glucose of more than 200 mg/dL in a nonstressed, ambulatory subject supports the diagnosis of Diabetes Mellitus. ADA recommended reference rangePerformed By: #### DIFF CBC, BMP ####[facility] [place] [address] [place] Potassium [Moles/Vol]4.2 mmol/LNormal3.5-5.1FProMedica Defiance Regional Hospital Comment on above:Performed By: #### DIFF CBC, BMP ####[address] [place] [address] USASodium [Moles/Vol]136 mmol/LNormal 136-146Mer[facility] County Community HospitalComment on above:Performed By: #### DIFF CBC, BMP ####[address] [place] [address] USAUrea nitrogen [Mass/Vol]42 mg/dLHigh9-23[facility] Comment on above:Performed By: #### DIFF CBC, BMP ####[address] [address] USABasophils/100 WBC Auto (Bld)Ordered By: Chris Mccarthy on 74-67-4437Vlcjyjark/100 WBC (Bld)1 %0-2FProMedica Defiance Regional HospitalDiff and CBCon 43-44-7017Sdhcjeaxwsbj Ql (Bld)Moderate NormalMercer County Community HospitalComment on above:Performed By: #### DIFF CBC, BMP ####[facility] [facility] [place] [place] [address] USABasophils/100 WBC (Bld)1 %Normal0-2FProMedica Defiance Regional HospitalComment on above:Performed By: #### DIFF CBC, BMP ####[address] [address] USAEosinophils/100 WBC (Bld)4 %High1-3FProMedica Defiance Regional HospitalComment on above:Performed By: #### DIFF CBC, BMP ####[address] [address] [facility] Erythrocyte distribution width (RBC) [Ratio]18.2 %High12.0-14.8Mercer County Community HospitalComment on above:Performed By: #### DIFF CBC, BMP ####[address] [address] [facility] Hematocrit (Bld) [Volume fraction]24.9 %Low38.8-50.0Mer[facility] County Community HospitalComment on above:Performed By: #### DIFF CBC, BMP ####[place] [address] USAHemoglobin (Bld) [Mass/Vol]7.9 g/dLLow13.0-17.0Mer[facility] County Community HospitalComment on above:Performed By: #### DIFF CBC, BMP ####[address] [address] USAHypochromasiaSHighland District HospitalComment on above:Performed By: #### DIFF CBC, BMP ####[place] [id number] USALarge PlateletsWright-Patterson Medical CenterComment on above:Result Comment: PERFORMED BY:[address] [place], [place] [phone] MEDICAL DIRECTORCHRISTO PINO M.D.Performed By: #### DIFF CBC, BMP ####[place] [id number] USALymphocytes/100 WBC (Bld)15 % Vso13-72DizzfdtvbMercer County Community HospitalComment on above:Performed By: #### DIFF CBC, BMP ####[address] [address] USAMCH (RBC) [Entitic mass]27.5 nsZiqref30.5-35.2FProMedica Defiance Regional HospitalComment on above:Performed By: #### DIFF CBC, BMP ####[address] [address] USAMCV (RBC) [Entitic vol]86.7 lGXckcxb47.5-101Mer[facility] County Community HospitalComment on above: Performed By: #### DIFF CBC, BMP ####[address] [address] USAMean Corpuscular HGB Conc31.7 g/dLLow32.5-35.6 [facility] HospitalComment on above:Performed By: #### DIFF CBC, BMP ####[address] [address] [place] Monocytes/100 WBC (Bld)2 %Normal2-11Mer[facility] County Community HospitalComment on above:Performed By: #### DIFF CBC, BMP ####[address] [address] USANucleated RBC/100 WBC (Bld) [Ratio]0.1 %Normal 0-0.5FProMedica Defiance Regional HospitalComment on above:Result Comment: PERFORMED BY:[address] [place], [place] [phone] MEDICAL DIRECTORCHRISTO PINO M.D.Performed By: #### DIFF CBC, BMP ####[address] [address] [place] Platelet EstimateNormalNormalNormalMercer County Community HospitalCombeaumont hospital on above:Performed By: #### DIFF CBC, BMP ####[address] [address] USAPlatelet mean volume (Bld) [Entitic vol]10.1 fLNormal6.6-10.1FProMedica Defiance Regional HospitalComment on above:Performed By: #### DIFF CBC, BMP ####[address] [address] USAPlatelets (Bld) [#/Vol]191 10*3/rQQqtvhc690-687AphpftpfxMercer County Community HospitalComment on above:Performed By: #### DIFF CBC, BMP ####[address] [address] USAPoikilocytosisSlight NormalMercer County Community HospitalComment on above:Performed By: #### DIFF CBC, BMP ####[facility] [address]up[address] [place] [address] USARBC (Bld) [#/Vol]2.88 10*6/uLLow3.90-5.60[facility] Comment on above:Performed By: #### DIFF CBC, BMP ####[facility] Jbk264[address] [place] [address] USASegmented neutrophils/100 WBC (Bld)78 %Fpwp76-30ZenxrehnjMercer County Community HospitalComment on above:Performed By: #### DIFF CBC, BMP ####[place] [address] [place] [address] USATarget CellsModeratePremier HealthComment on above:Performed By: #### DIFF CBC, BMP ####[address] [place] [address] USAWBC (Bld) [#/Vol]21.3 10*3/uLHigh4.5-11.0 [facility] Community HospitalComment on above:Performed By: #### DIFF CBC, BMP ####[place] [address] [place] [address] [place] Glucose Poct Glucometerson 46-97-3538Qfdohmi6Zgo0: Cleaned Cherrington HospitalComment on above:Result Comment: PERFORMED BY:[address] [place], [place] [phone] MEDICAL DIRECTORCHRISTO PINO M.D.Performed By: #### GLULS ####Point of Care testing,Glucose [Mass/Vol]133 mg/dLPremier Health Comment on above:Result Comment: Random Glucose Reference Range is dependent on time and content of last meal. Glucose of more than 200 mg/dL in a nonstressed, ambulatory subject supports the diagnosis of Diabetes Mellitus.Performed By: #### GLULS ####Point of Care testing,Bhchylk5Aop1: Cleaned Cherrington HospitalComment on above:Result Comment: PERFORMED BY:[address].[place], [place] [phone] MEDICAL DIRECTORCHRISTO PINO M.D.Performed By: #### GLULS ####Point of Care testing,Glucose [Mass/Vol]97 mg/dLPremier HealthComment on above:Result Comment: Random Glucose Reference Range is dependent on time and content of last meal. Glucose of more than 200 mg/dL in a nonstressed, ambulatory subject supports the diagnosis of Diabetes Mellitus.Performed By: #### GLULS ####Point of Care testing,Cohfhse2Cal6: Cleaned Cherrington HospitalComment on above:Result Comment: PERFORMED BY:[address] [place], [place] [phone] MEDICAL DIRECTORCHRISTO PINO M.D.Performed By: #### GLULS ####Point of Care testing,Glucose [Mass/Vol]98 mg/dLPremier HealthComment on above:Result Comment: Random Glucose Reference Range is dependent on time and content of last meal. Glucose of more than 200 mg/dL in a nonstressed, ambulatory subject supports the diagnosis of Diabetes Mellitus.Performed By: #### GLULS ####Point of Care testing,Kjursck8Sfj4: Cleaned Cherrington HospitalCombeaumont hospital on above:Result Comment: PERFORMED BY:[address] INFANTEJeanetteMIGUELANGELAUMSVILLE, [place] [phone] MEDICAL DIRECTORCHRISTO PINO M.D.Performed By: #### GLULS ####Point of Care testing,Glucose [Mass/Vol]72 mg/dLPremier HealthComment on above:Result Comment: Random Glucose Reference Range is dependent on time and content of last meal. Glucose of more than 200 mg/dL in a nonstressed, ambulatory subject supports the diagnosis of Diabetes Mellitus.Performed By: #### GLULS ####Point of Care testing,No Panel InformationOrdered By: Chris Mccarthy on 44-57-3700Rwkdr PlateletsSumma Health PoikilocytosisSumma HealthBasic Metabolic Panelon 54-55-6734Xxesfpg [Mass/Vol]8.0 mg/dLLow8.2-10.2FProMedica Defiance Regional HospitalComment on above:Performed By: #### DIFF CBC, BMP ####[facility] [address]je[address] [place] [address] USAChloride [Moles/Vol]108 mmol/L Wmiqnj81-728KwqtxfgcjMercer County Community HospitalComment on above:Performed By: #### DIFF CBC, BMP ####[facility] Cbm[address] [place] [address] USACO2 [Moles/Vol]19.0 mmol/LLow22.0-30.0[facility] Comment on above:Performed By: #### DIFF CBC, BMP ####[place] [place] [address] USACreatinine [Mass/Vol]3.31 mg/dLHigh 0.64-1.27Mer[facility] County Community HospitalComment on above:Performed By: #### DIFF CBC, BMP ####[place] [address] [place] [address] USACreatinine Clr Calc Kvmcqeag32.48Premier HealthComment on above:Result Comment: PERFORMED BY:[address] [place], [place] [phone] MEDICAL MOOSE PINO M.D.Performed By: #### DIFF CBC, BMP ####[facility] [place] [address] USAEstimated GFR ( Cristo 22NoProvidence HospitalComment on above:Result Comment: GFR estimated reference range: According to KDOQI guidelines, <60 ml/min/1.73m2 is sufficient to diagnose a patient with chronic kidney disease.Performed By: #### DIFF CBC, BMP ####[facility] Rgv[address] [place] [address] USAEstimated GFR (Non- Qm43QbmulvItjwuyatjPremier Health Comment on above:Performed By: #### DIFF CBC, BMP ####[facility] [place] [address] USAGlucose [Mass/Vol]67 mg/uHMsz20-168 [facility] Community HospitalComment on above:Result Comment: Random Glucose Reference Range is dependent on time and content of last meal. Glucose of more than 200 mg/dL in a nonstressed, ambulatory subject supports the diagnosis of Diabetes Mellitus. ADA recommended reference rangePerformed By: #### DIFF CBC, BMP ####[facility] [place] [address] [place] Potassium [Moles/Vol]4.5 mmol/LNormal3.5-5.1FProMedica Defiance Regional Hospital Comment on above:Performed By: #### DIFF CBC, BMP ####[place] [place] [address] USASodium [Moles/Vol]135 mmol/LLow 136-146Mer[facility] County Community HospitalComment on above:Performed By: #### DIFF CBC, BMP ####[address] [address] USAUrea nitrogen [Mass/Vol]40 mg/dLHigh9-23[facility] Comment on above:Performed By: #### DIFF CBC, BMP ####[address] [address] USADiff and CBCon 22-90-1140Lpkrgsuxgqsa Ql (Bld)ModerateNormalMercer County Community HospitalComment on above: Performed By: #### DIFF CBC, BMP ####[address] [address] USABand form neutrophils/100 WBC (Bld)11 %High0-5 [facility] HospitalComment on above:Performed By: #### DIFF CBC, BMP ####[address] [address] [place] Basophils/100 WBC (Bld)1 %Normal0-2FProMedica Defiance Regional HospitalComment on above:Performed By: #### DIFF CBC, BMP ####[address] [address] USAErythrocyte distribution width (RBC) [Ratio] 18.5 %High12.0-14.8[facility] Community HospitalComment on above:Performed By: #### DIFF CBC, BMP ####[place] [address] USAHematocrit (Bld) [Volume fraction]25.9 %Low38.8-50.0 [facility] HospitalComment on above:Performed By: #### DIFF CBC, BMP ####[address] Hemoglobin (Bld) [Mass/Vol]8.1 g/dLLow13.0-17.0[facility] Comment on above:Performed By: #### DIFF CBC, BMP ####[place] [address] USAHypochromasiaSlightNoProvidence HospitalComment on above:Performed By: #### DIFF CBC, BMP ####[address] Lymphocytes/100 WBC (Bld)13 %Kvv27-70WrihxwqqiMercer County Community HospitalComment on above:Performed By: #### DIFF CBC, BMP ####[address] StreetMCH (RBC) [Entitic mass]27.2 pgLow27.5-35.2 [facility] HospitalComment on above:Performed By: #### DIFF CBC, BMP ####[place] [phone] [facility] ([facility]BC) [Entitic vol]86.6 jYOxtnbx98.5-101Mer[facility] County Community HospitalComment on above:Performed By: #### DIFF CBC, BMP ####[place] [address] USAMean Corpuscular HGB Conc31.4 g/dLLow32.5-35.6 [facility] HospitalComment on above:Performed By: #### DIFF CBC, BMP ####[address] [place] [address] [place] Monocytes/100 WBC (Bld)6 %Normal2-11[facility] HospitalComment on above:Performed By: #### DIFF CBC, BMP ####[address] [address] USANucleated RBC/100 WBC (Bld) [Ratio]0.1 %Normal 0-0.5FProMedica Defiance Regional HospitalComment on above:Result Comment: PERFORMED BY:[place] [address] [address] [place], [place] [phone] MEDICAL DIRECTORCHRISTO PINO M.D.Performed By: #### DIFF CBC, BMP ####[address] [address] [place] Platelet EstimateNormalNormalNoProvidence HospitalComment on above:Performed By: #### DIFF CBC, BMP ####[address] [address] USAPlatelet mean volume (Bld) [Entitic vol]9.6 fL Normal6.6-10.1FProMedica Defiance Regional HospitalComment on above:Performed By: #### DIFF CBC, BMP ####[address] [address] USAPlatelet MorphologyNormalNormalPremier HealthComment on above:Result Comment: PERFORMED BY:[address] [place], [place] [phone] MEDICAL DIRECTORCHRISTO PINO M.D.Performed By: #### DIFF CBC, BMP ####[address] [address] USAPlatelets (Bld) [#/Vol]204 10*3/bUPspmoq085-396OyztwcodiMercer County Community HospitalComment on above:Performed By: #### DIFF CBC, BMP ####[address] [address] USARBC (Bld) [#/Vol]2.99 10*6/uLLow3.90-5.60[facility] Community HospitalComment on above:Performed By: #### DIFF CBC, BMP ####[facility] [address] [place] [address] [place] Segmented neutrophils/100 WBC (Bld)69 %Obvtue13-61BdhkmnsaqMercer County Community HospitalComment on above:Performed By: #### DIFF CBC, BMP ####[facility] Zck[address]8 [place] [address] USATarget CellsModerateNormal [facility] Community HospitalComment on above:Performed By: #### DIFF CBC, BMP ####[facility] Igh[address]854 [place] [address] USAWBC (Bld) [#/Vol]25.8 10*3/uLHigh4.5-11.0[facility] HospitalComment on above:Performed By: #### DIFF CBC, BMP ####[facility] [address] [place] [address] USAGlucose Poct Glucometerson 00-62-6411Ustpdoh [Mass/Vol]102 mg/dLNoProvidence HospitalComment on above: Result Comment: Random Glucose Reference Range is dependent on time and content of last meal. Glucose of more than 200 mg/dL in a nonstressed, ambulatory subject supports the diagnosis of Diabetes Mellitus.PERFORMED BY:[address] [address] [place], [place] [phone] MEDICAL DIRECTORCHRISTO PINO M.D.Performed By: #### GLULS ####Point of Care testing,Pcefwbz9Gwl3: Cleaned MeterNoProvidence Hospital Comment on above:Result Comment: PERFORMED BY:[address] [address] [address] [place], [place] [phone] MEDICAL DIRECTORCHRISTO PINO M.D.Performed By: #### GLULS ####Point of Care testing, Glucose [Mass/Vol]104 mg/dLPremier HealthComment on above:Result Comment: Random Glucose Reference Range is dependent on time and content of last meal. Glucose of more than 200 mg/dL in a nonstressed, ambulatory subject supports the diagnosis of Diabetes Mellitus.Performed By: #### GLULS ####Point of Care testing,Alalazu1Gjm1: Cleaned Cherrington HospitalComment on above:Result Comment: PERFORMED BY:[address] [place]ESFL[place]AT[place], [place] [phone] MEDICAL DIRECTORCHRISTO PINO M.D.Performed By: #### GLULS ####Point of Care testing,Glucose [Mass/Vol]143 mg/dLPremier Health Comment on above:Result Comment: Random Glucose Reference Range is dependent on time and content of last meal. Glucose of more than 200 mg/dL in a nonstressed, ambulatory subject supports the diagnosis of Diabetes Mellitus.Performed By: #### GLULS ####Point of Care testing,Kfaipmq0Vtp5: Cleaned Cherrington HospitalComment on above:Result Comment: PERFORMED BY:[address] INFANTEJeanetteMIGUELANGEL, [place] [phone] MEDICAL DIRECTORCHRISTO PINO M.D.Performed By: #### GLULS ####Point of Care testing,Glucose [Mass/Vol]70 mg/dLPremier HealthComment on above:Result Comment: Random Glucose Reference Range is dependent on time and content of last meal. Glucose of more than 200 mg/dL in a nonstressed, ambulatory subject supports the diagnosis of Diabetes Mellitus.Performed By: #### GLULS ####Point of Care testing,Glucose [Mass/Vol]129 mg/dLPremier HealthComment on above:Result Comment: Random Glucose Reference Range is dependent on time and content of last meal. Glucose of more than 200 mg/dL in a nonstressed, ambulatory subject supports the diagnosis of Diabetes Mellitus.Performed By: #### GLULS ####Point of Care testing,Laboratory - Hematology and Cell countsOrdered By: Chris Mccarthy on 60-91-9640Jgiu form neutrophils/100 WBC (Bld)11 %0-5FProMedica Defiance Regional HospitalUrine culture routineOrdered By: Ivan Springer on 50-24-3601Xgzfnxdf identified Cx Nom (U)No Growth 2 DaysMercer County Community HospitalVancomycin,Randomon 52-30-8802Tvhcevxmoz,Mmsvhd65.8 ug/mLNormal5.0-20.0Mer[facility] Community HospitalComment on above:Order Comment: Date of last dose?: 20211114 Time of last dose?: 1529Result Comment: Last dose: -PERFORMED BY:[address] [address] [address] [place], [place] [phone] MEDICAL DIRECTORCHRISTO PINO M.D.Performed By: #### VANCR ####[address] [place] [address] USAA1C with Estimated Average Gluon 49-23-9502Iftqwjv [Mass/Vol]114 mg/dLNormalMercer County Community Hospital Comment on above:Result Comment: PERFORMED BY:[address] [address] [address] [place], [place] [phone] MEDICAL DIRECTORCHRISTO PINO M.D.Performed By: #### A1C WT eA ####[address] [address]UZPFjE2z (Bld) [Mass fraction]5.6 %Normal4.3-5.6FProMedica Defiance Regional HospitalComment on above:Result Comment: Increased risk for diabetes: 5.7 - 6.4 diabetes: >6.4 glycemic control for adults with diabetes: <7.0Performed By: #### A1C WT eA ####[address] [address]BPEOevrbbt [Mass/volume] in Serum or PlasmaOrdered By: Olga Lidia Mario on 71-67-4648Irkpqbt [Mass/Vol]2.3 g/dL2.9-4.4 [facility] HospitalAlbumin/Protein.total in 24 hour Urine by ElectrophoresisOrdered By: Olga Lidia Mario on 05-96-3636Gauzhky Elph (24H U) [Mass fraction]49.1 %.Mer[facility] County Community HospitalBasic Metabolic Panelon 47-34-6765Vohabwq [Mass/Vol]7.8 mg/dLLow8.2-10.2FProMedica Defiance Regional HospitalComment on above:Performed By: #### [id number], BMP, DIFF CBC ####[address] [address] USAChloride [Moles/Vol] 111 mmol/OXljcfo72-992UlawymoeeMercer County Community HospitalComment on above: Performed By: #### EZOE87FV, BMP, DIFF CBC ####[address] [address] USACO2 [Moles/Vol]17.1 mmol/LLow22.0-30.0 [facility] HospitalComment on above:Performed By: #### [id number], BMP, DIFF CBC ####[address] [address] USACreatinine [Mass/Vol]3.28 mg/dLHigh0.64-1.27[facility] Community HospitalComment on above:Performed By: #### JULO31TT, BMP, DIFF CBC ####[address] [address] USACreatinine Clr Calc Wsurkzea35.57NoProvidence HospitalComment on above:Performed By: #### [id number], BMP, DIFF CBC ####[address] [address] USAEstimated GFR ( Xsqhfem82SuauwcOeazhaoeaPremier HealthComment on above:Result Comment: GFR estimated reference range: According to KDOQI guidelines, <60 ml/min/1.73m2 is sufficient to diagnose a patient with chronic kidney disease.Performed By: #### LCCX93TQ, BMP, DIFF CBC ####[address] [address] USAEstimated GFR (Non- Ez12QeznlaQlqimzwcfPremier HealthComment on above:Performed By: #### WMPM14OT, BMP, DIFF CBC ####[address] [address] USAGlucose [Mass/Vol]122 mg/dL Xrle12-022BlrvdzcesMercer County Community HospitalComment on above:Result Comment: Random Glucose Reference Range is dependent on time and content of last meal. Glucose of more than 200 mg/dL in a nonstressed, ambulatory subject supports the diagnosis of Diabetes Mellitus. ADA recommended reference rangePerformed By: #### ALPI63HN, BMP, DIFF CBC ####[facility] [address]v3044 [place] [address] USAPotassium [Moles/Vol]5.0 mmol/LNormal3.5-5.1 [facility] HospitalComment on above:Performed By: #### VKDC65ZU, BMP, DIFF CBC ####[address] [place] [address] USASodium [Moles/Vol]135 mmol/AJfp046-715CuuarxfabMercer County Community Hospital Comment on above:Performed By: #### RZQJ26QL, BMP, DIFF CBC ####[address] [place] [address] USAUrea nitrogen [Mass/Vol]34 mg/dLHigh9-23Mer[facility] Community HospitalComment on above: Performed By: #### UHMC62NW, BMP, DIFF CBC ####[address] [place] [address] USABlood polychromasia detection by light microscopyOrdered By: Chris Mccarthy on 49-77-9904Bjrzncmbcbqni LM Ql (Bld)SlightMercer County Community HospitalCT abdomen pelvis wo conon 24-54-4198IY abdomen pelvis wo conNormalMercer County Community HospitalCT biopsyOrdered By: Olga Lidia Martin on 73-83-7036Silfthbwfet [Mass/Vol]189 mg/dL 180-380Mercer County Community HospitalDiff and CBCon 41-13-4366Oeifihqftgrg Ql (Bld)ModerateNormalMercer County Community HospitalComment on above:Performed By: #### LJMA45SW, BMP, DIFF CBC ####[facility] Sfj6898 [place] [address] USABand form neutrophils/100 WBC (Bld)27 %High0-5 [facility] HospitalComment on above:Performed By: #### CNTZ27UR, BMP, DIFF CBC ####[address] [address] USAErythrocyte distribution width (RBC) [Ratio]18.3 %High12.0-14.8 [facility] HospitalComment on above:Performed By: #### ZKPA60RI, BMP, DIFF CBC ####[address] [address] USAHematocrit (Bld) [Volume fraction]26.9 %Low38.8-50.0[facility] Community HospitalComment on above:Performed By: #### HVKT43UR, BMP, DIFF CBC ####[address] [address] [place] Hemoglobin (Bld) [Mass/Vol]8.1 g/dLLow13.0-17.0[facility] Comment on above:Performed By: #### PFKU87KN, BMP, DIFF CBC ####[address] [address] USAHypochromasiaSaudubon county memorial [facility] NormalMercer County Community HospitalComment on above:Performed By: #### OJOB53YJ, BMP, DIFF CBC ####[address] [address] USALarge PlateletsSaudubon county memorial hospital and clinicsNormParkwood HospitalComment on above:Result Comment: PERFORMED BY:[address] [place], [place] [phone] MEDICAL MOOSE PINO M.D.Performed By: #### DSCM07PV, BMP, DIFF CBC ####[address] [address] USALymphocytes/100 WBC (Bld)7 %Ivx49-63IrewetvjtMercer County Community HospitalComment on above:Performed By: #### ZZTE14CG, BMP, DIFF CBC ####[address] [address] USAMCH (RBC) [Entitic mass]26.4 pgLow27.5-35.2FProMedica Defiance Regional HospitalComment on above:Performed By: #### QNHM42CE, BMP, DIFF CBC ####[address] [address] USAMCV (RBC) [Entitic vol]87.5 aULfluvw93.5-101Mer[facility] Community HospitalComment on above:Performed By: #### IGNT80LM, BMP, DIFF CBC ####[address] [address] USAMean Corpuscular HGB Conc30.2 g/dLLow32.5-35.6FProMedica Defiance Regional HospitalComment on above:Performed By: #### ZCRE21PW, BMP, DIFF CBC ####[address] [address] USAMetamyelocytes1 %High0-0[facility] Community HospitalComment on above:Performed By: #### USVK45PF, BMP, DIFF CBC ####[address] [address] USAMonocytes/100 WBC (Bld)3 %Normal2-11[facility] Community HospitalComment on above:Performed By: #### [id number], BMP, DIFF CBC ####[address] [address] USANucleated RBC/100 WBC (Bld) [Ratio]0.1 %Normal0-0.5 [facility] HospitalComment on above:Result Comment: PERFORMED BY:[address] [place], [place] [phone] MEDICAL DIRECTORCHRISTO PINO M.D.Performed By: #### MZRN38LG, BMP, DIFF CBC ####[address] [address] USAPlatelet EstimateNormalNormalNormalMercer County Community Hospital Comment on above:Performed By: #### UMJL84UB, BMP, DIFF CBC ####[address] [address] USAPlatelet mean volume (Bld) [Entitic vol]10.4 fLHigh6.6-10.1FProMedica Defiance Regional HospitalComment on above:Performed By: #### PKHN92GI, BMP, DIFF CBC ####[facility] [address]kv[address]89 [place] [address] USAPlatelets (Bld) [#/Vol]238 10*3/aJCvmkps665-295VbqapmjbmMercer County Community HospitalComment on above:Performed By: #### ULMN69IM, BMP, DIFF CBC ####[address] [address] USAPolychromasiaSHighland District HospitalComment on above:Performed By: #### YEHX29DT, BMP, DIFF CBC ####[address] [address] USARBC (Bld) [#/Vol]3.08 10*6/uLLow3.90-5.60[facility] HospitalComment on above:Performed By: #### RVJH40OO, BMP, DIFF CBC ####[address] [address] USASchistocytesSHighland District HospitalComment on above:Performed By: #### CGJO70CV, BMP, DIFF CBC ####[address] [address] USASegmented neutrophils/100 WBC (Bld)62 %Dxcwtc33-23ZmbgceevaMercer County Community HospitalComment on above:Performed By: #### AXNH59OS, BMP, DIFF CBC ####[address] [address] USATarget CellsModerateNoSelect Medical Specialty Hospital - CantonComment on above:Performed By: #### ECZH01GN, BMP, DIFF CBC ####[address] [address] USAWBC (Bld) [#/Vol]30.1 10*3/uLHigh4.5-11.0[facility] Community HospitalComment on above:Performed By: #### ZHQR69TP, BMP, DIFF CBC ####[facility] [address] [place] [address] USAFerritinon 11-15-2021 Ferritin [Mass/Vol]68.6 ng/lZDojcbq41.9-336.2FProMedica Defiance Regional Hospital Comment on above:Performed By: #### SPE, KAPPA, ROSALEE SERUM ####[facility] ,#### FE and TIBC, NSTZ87NZZ, OKSANA####[facility] [place] [address] USAFerritin [Mass/volume] in Serum or PlasmaOrdered By: Olga Lidia Martin on 48-58-6231Oglohuzb [Mass/Vol]68.6 ng/mL 23.9-336.2FProMedica Defiance Regional HospitalFolate [Mass/volume] in Serum or PlasmaOrdered By: Olga Lidia Mario on 02-52-3651Kcgydd [Mass/Vol]6.8 ng/mL>5.9 [facility] HospitalComment on above:Folate reference range: >5.9 ng/ml The WHO technical consultation on folate and vitamin b12 deficiencies has determined that folate concentrations less than 4 ng/ml are considered deficient.Folate reference range: >5.9 ng/mlThe WHO technical consultation on folate and vitamin q70jkiiadtryjws has determined that folate concentrations lessthan 4 ng/ml are considered deficient.Free K+L LT Chains, Qn, Son 13-45-4142Chxf [place] Light Chains, S229.3 mg/LHigh3.3-19.4 [facility] HospitalComment on above:Performed By: #### SPE, KAPPA, ROSALEE SERUM ####[facility] ,#### FE and TIBC, [id number], OKSANA ####[facility] [place] [address] USAFree Lambda Light Chains, S163.5 mg/LHigh5.7-26.3FProMedica Defiance Regional Hospital Comment on above:Performed By: #### SPE, KAPPA, ROSALEE SERUM ####[facility] ,#### FE and TIBC, [id number], OKSANA####[place] [address] USAKappa/Lambda Ratio, S1.40Normal 0.26-1.65Mer[facility] County Community HospitalComment on above:Result Comment: Performed at: - [facility] [address] [id number] Glass Decorator: Colton Lane PhD, Phone: [phone] BY:[place] [place] [address] [place], [place] [phone] MEDICAL DIRECTORCHRISTO PINO M.D.Performed By: #### SPE, KAPPA, ROSALEE SERUM ####[facility] ,#### FE and TIBC, [id number], OKSANA####[place] [address] USAGamma globulin/Protein.total in 24 hour Urine by ElectrophoresisOrdered By: Olga Lidia Martin on 00-26-2673Aziyi globulin Elph (24H U) [Mass fraction]24.0 %.[facility] Glucose Poct Glucometerson 60-64-9994Jjehafl [Mass/Vol]148 mg/dLPremier HealthComment on above:Result Comment: Random Glucose Reference Range is dependent on time and content of last meal. Glucose of more than 200 mg/dL in a nonstressed, ambulatory subject supports the diagnosis of Diabetes Mellitus.PERFORMED BY:[address] [address] [address] [place], [place] [phone] MEDICAL MOOSE PINO M.D.Performed By: #### GLULS ####Point of Care testing,Joaacql2Bfo1: Cleaned MeterNoProvidence HospitalComment on above:Result Comment: PERFORMED BY:[address] [address] [address] [place], [place] [phone] MEDICAL MOOSE PINO M.D.Performed By: #### GLULS ####Point of Care testing,Glucose [Mass/Vol]133 mg/dLPremier Health Comment on above:Result Comment: Random Glucose Reference Range is dependent on time and content of last meal. Glucose of more than 200 mg/dL in a nonstressed, ambulatory subject supports the diagnosis of Diabetes Mellitus.Performed By: #### GLULS ####Point of Care testing,Glucose [Mass/Vol]141 mg/dLNoProvidence HospitalComment on above:Result Comment: Random Glucose Reference Range is dependent on time and content of last meal. Glucose of more than 200 mg/dL in a nonstressed, ambulatory subject supports the diagnosis of Diabetes Mellitus.Performed By: #### GLULS ####Point of Care testing,Glucose mean value [Mass/volume] in Blood Estimated from glycated hemoglobinOrdered By: Chris Mccarthy on 88-44-6822Tpcpxdk glucose Estimated from glycated hemoglobin (Bld) [Mass/Vol]114 mg/dLMercer County Community HospitalHemoglobin A1c percentage Ordered By: Chris Mccarthy on 80-24-6354MlA7f (Bld) [Mass fraction]5.6 % 4.3-5.6FProMedica Defiance Regional HospitalComment on above:Increased risk for diabetes: 5.7 - 6.4 diabetes: >6.4 glycemic control for adults with diabetes: <7.0Increased risk for diabetes: 5.7 - 6.4diabetes: >6.4glycemic control for adults with diabetes: <7.0IgA [Mass/volume] in Serum or PlasmaOrdered By: Olga Lidia Martin on 95-37-4645PwW [Mass/Vol]698 mg/wA98-290HoymxnfszMercer County Community HospitalIgG [Mass/volume] in Serum or PlasmaOrdered By: Olga Lidia Mario on 37-78-0531OzT [Mass/Vol]2509 mg/dL 603-1613Mer[facility] County Community HospitalIgM [Mass/volume] in Serum or Plasma Ordered By: Olga Lidia Mario on 25-63-4306VmW [Mass/Vol]87 mg/tF69-284YeizhjhegMercer County Community HospitalComment on above:Performed at: [address] [id number] Glass Decorator: Colton Lane PhD, Phone: [phone] at: [facility] Epi[employer]one[address] [id number] Director: Colton Lane PhD, Phone: [phone] for UrineOrdered By: Olga Lidia Martin on 28-99-8772Jabvkhplbbfkhe Immunofixation (U) [Interp]See comment.[facility] Community HospitalComment on above:No monoclonality detected. Performed at: [employer] [id number] Glass Decorator: Colton Lane PhD, Phone: [phone] monoclonality detected.Performed at: [facility] Nu-Med Plus[address] [id number] Director: Colton Lane PhD, Phone: [phone], (ROSALEE), Urineon 29-69-7513Hizwzpcbnwsukd, (ROSALEE), UrineNormal.[facility] Community HospitalComment on above:Result Comment: No monoclonality detected. Performed at: [employer] [id number] Glass Decorator: Colton Lane PhD, Phone: [phone] By: #### UPE RAND, ROSALEE,URINE ####[facility] ,Immunofixation,Serumon 11-15-2021 Immunofixation, SerumNormal.[facility] HospitalComment on above: Result Comment: No monoclonality detected.Performed By: #### SPE, KAPPA, ROSALEE SERUM ####[facility] ,#### FE and TIBC, [id number], OKSANA####[facility] [address] [place] [address] USAImmunoglobulin A, Sogwn333 mg/tBJhcb80-805Cukyoszay19 Graham StreetComment on above: Performed By: #### SPE, KAPPA, ROSALEE SERUM ####[facility] ,#### FE and TIBC, [id number], OKSANA####[facility] [place] [address] USAImmunoglobulin G2509 mg/xBFbxh386-1474ZutzzgszxMercer County Community HospitalComment on above:Performed By: #### SPE, KAPPA, ROSALEE SERUM ####[facility] ,#### FE and TIBC, [id number], OKSANA####[place] [address] USAImmunoglobulin M, Serum87 mg/dLNormal 15-143Mer[facility] County Community HospitalComment on above:Result Comment: Performed at: [address] [id number] Glass Decorator: Colton Lane PhD, Phone: [phone] By: #### SPE, KAPPA, ROSALEE SERUM ####[facility] ,#### FE and TIBC, [id number], OKSANA ####[address] Immunoglobulin light chains.kappa.free [Mass/volume] in SerumOrdered By: Olga Lidia Mario on 65-44-9766Wygbqnsdwjitcu light chains.kappa.free (S) [Mass/Vol]229.3 mg/L3.3-19.4FProMedica Defiance Regional HospitalImmunoglobulin light chains.kappa.free/Immunoglobulin light chains.lambda.free [MassOrdered By: Olga Lidia Mario on 30-18-1492Nobazlypuzuxad light chains.kappa.free/Immunoglobulin light chains.lambda.free (S) [Mass ratio]1.400.26-1.65[facility] County Community HospitalComment on above:Performed at: [address] [id number] Glass Decorator: Colton Lane PhD, Phone: [phone] at: [address] [id number] Director: Colton Lane PhD, Phone: [phone] light chains.lambda.free [Mass/volume] in Serum or PlasmaOrdered By: Olga Lidia Mario on 82-02-4134Ewjzlyoykzlfqk light chains.lambda.free [Mass/Vol]163.5 mg/L5.7-26.3FProMedica Defiance Regional Hospital Iron [Mass/volume] in Serum or PlasmaOrdered By: Olga Lidia Oteror on 65-09-4647Vpio [Mass/Vol]9 ug/dU43-651PlcjpsjnuMercer County Community HospitalIron and TIBC Profileon 11-15-2021% Iron Saturation3.0 %Dih48-20KhvfzjoukMercer County Community HospitalComment on above:Performed By: #### SPE, KAPPA, ROSALEE SERUM ####[facility] ,#### FE and TIBC, [id number], OKSANA####[address] [address] USAIron [Mass/Vol]9 ug/mZHba42-120 [facility] HospitalComment on above:Performed By: #### SPE, KAPPA, ROSALEE SERUM ####[facility] ,#### FE and TIBC, [id number], OKSANA ####[address] [address] USATotal Iron Binding Srzmevok443 ug/bFLlvzpi781-907OhfgseogfMercer County Community Hospital Comment on above:Performed By: #### SPE, KAPPA, ROSALEE SERUM ####[facility] ,#### FE and TIBC, [id number], OKSANA####[address] [address] USATransferrin [Mass/Vol]189 mg/dLNormal 180-380Mer[facility] Community HospitalComment on above:Performed By: #### SPE, KAPPA, ROSALEE SERUM ####[facility] ,#### FE and TIBC, [id number], OKSANA ####[address] [address] USAIron binding capacity [Mass/volume] in Serum or PlasmaOrdered By: Olga Lidia Yudir on 44-11-1316Wxat binding capacity [Mass/Vol]265 ug/zB991-375JseqejnlfMercer County Community HospitalIron saturation [Mass Fraction] in Serum or PlasmaOrdered By: Olga Lidia Martin on 18-93-0989Rmxm saturation [Mass fraction]3.0 %20-50Mer[facility] Community HospitalLaboratory - Chemistry and Chemistry - challengeOrdered By: Olga Lidia Martin on 74-08-7527Cmavkzqcv (Vitamin B12) [Mass/Vol]825 pg/yB442-545 [facility] HospitalMR foot RT wo conon 04-72-2322NN foot RT wo con NormalMercer County Community HospitalMetamyelocytes/100 WBC Manual cnt (Bld) Ordered By: Chris Mccarthy on 93-52-1350Hxldjworlcqcdo/100 WBC (Bld)1 %0-0 [facility] HospitalNo Panel InformationOrdered By: Olga Lidia Martin on 56-18-2393Mlymn Random Prot Electrophor NoteSee comment.[facility] County Community HospitalComment on above:Protein electrophoresis scan will follow via computer, mail, or temperature regulator pyrometer delivery. Performed at: [facility] [place] [address] Glass Decorator: Colton Lane PhD, Phone: [phone] electrophoresis scan will follow via computer,mail, or temperature regulator pyrometer delivery.Performed at: [employer] [address] [id number] Director: Colton Lane PhD, Phone: [phone] Electrophoresis M-SpikeNot observed g/dL Not ObservedMercer County Community HospitalProtein Electrophoresis NoteSee comment.[facility] County Community HospitalComment on above:Protein electrophoresis scan will follow via computer, mail, or temperature regulator pyrometer delivery. Performed at: [facility] [address] [id number] Glass Decorator: Colton Lane PhD, Phone: [phone] electrophoresis scan will follow via computer,mail, or temperature regulator pyrometer delivery.Performed at: [facility] [address] [id number] Director: Colton Lane PhD, Phone: [phone] ImmunofixationSee comment.[facility] County Community HospitalComment on above:No monoclonality detected.No Panel InformationOrdered By: Chris Mccarthy on 239138-Hvvxrvx Vitamin D Total12.2 ng/rU95-748WylgigleoMercer County Community HospitalComment on above:VITAMIN D STATUS 25(OH)VITAMIN D RANGE (ng/mL) Deficient <20 Insufficient 20 to <30 Sufficient 30 to 100 Reference: Xavier Hunt, [place] RIOS, et al. Evaluation,treatment, and prevention of vitamin D deficiency; an Endocrine Society clinical practice guideline. JCEM. 2010; 96(7):1911-30.VITAMIN D STATUS 25(OH)VITAMIN D RANGE (ng/mL) Deficient <20 Insufficient 20 to <26Vydozzhgll77 to 100Reference: Xavier Hunt, [place] RIOS, et al. Evaluation,treatment, and prevention of vitamin D deficiency; an Endocrine Society clinical practice guideline. JCEM. 2010; 96(7):1911-30.Protein Electro, Random Urineon 01-35-3681Uonhfhk, Urine49.1 %Normal.[facility] Community HospitalComment on above:Performed By: #### UPE RAND, ROSALEE,URINE ####[facility] ,Kpboo-2-Dahnfzfm, Urine7.1 %Normal.[facility] Community HospitalComment on above:Performed By: #### UPE RAND, ROSALEE,URINE ####[facility] ,Buwbu-9-Zcusvogb, Urine7.2 %Normal.[facility] Community HospitalComment on above:Performed By: #### UPE RAND, ROSALEE,URINE ####[facility] ,Beta Globulin, Urine12.6 %Normal.[facility] Community HospitalComment on above:Performed By: #### UPE RAND, ROSALEE,URINE ####[facility] ,Gamma Globulin, Urine24.0 %Normal.[facility] Community HospitalComment on above:Performed By: #### UPE RAND, ROSALEE,URINE ####[facility] ,M-Alvarez %Not ObservedNormalNot ObservedMercer County Community HospitalComment on above:Performed By: #### UPEllen OTOOLE ROSALEE,URINE ####[facility] ,Please Note:Normal.[facility] Comment on above:Result Comment: Protein electrophoresis scan will follow via computer, mail, or temperature regulator pyrometer delivery. Performed at: [facility] [address] [id number] Glass Decorator: Colton Lane PhD, Phone: [phone] BY:[address] [place], [place] [phone] MEDICAL DIRECTORCHRISTO PINO M.D.Performed By: #### UPEllen OTOOLE ROSALEE,URINE ####[facility] ,Protein (U) [Mass/Vol]170.8 mg/dLNormalNot Estab.[facility] HospitalComment on above:Performed By: #### UPEllen OTOOLE ROSALEE,URINE ####[facility] ,Protein Electrophoresis, Serumon 07-65-1824Xoxvavw [Mass/Vol]2.3 g/dLLow2.9-4.4FProMedica Defiance Regional HospitalComment on above:Performed By: #### SPE, KAPPA, ROSALEE SERUM ####[facility] ,#### FE and TIBC, [id number], OKSANA####[place] [address] [place] [address] USAAlbumin/Globulin [Mass ratio] 0.5 {ratio}Low0.7-1.7FProMedica Defiance Regional HospitalComment on above:Performed By: #### SPE, KAPPA, ROSALEE SERUM ####[facility] ,#### FE and TIBC, [id number], OKSANA####[facility] [address] [place] [address] PENUazkk-0-Plqadcrk9.3 g/dLNormal0.0-0.4FProMedica Defiance Regional Hospital Comment on above:Performed By: #### SPE, KAPPA, ROSALEE SERUM ####[facility] ,#### FE and TIBC, [id number], OKSANA####[address] [address] VESFnrai-3-Mmnhrhar9.8 g/dLNormal0.4-1.0 [facility] HospitalComment on above:Performed By: #### SPE, KAPPA, ROSALEE SERUM ####[facility] ,#### FE and TIBC, [id number], OKSANA ####[place] [id number] USABeta Globulin1.1 g/dLNormal0.7-1.3FProMedica Defiance Regional HospitalComment on above: Performed By: #### SPE, KAPPA, ROSALEE SERUM ####[facility] ,#### FE and TIBC, [id number], OKSANA####[address] [address] USAGamma Globulin2.5 g/dLHigh0.4-1.8[facility] Comment on above:Performed By: #### SPE, KAPPA, ROSALEE SERUM ####[facility] ,#### FE and TIBC, [id number], OKSANA####[address] [address] USAGlobulin (S) [Mass/Vol]4.8 g/dLHigh 2.2-3.9[facility] HospitalComment on above:Performed By: #### SPE, KAPPA, ROSALEE SERUM ####[facility] ,#### FE and TIBC, [id number], OKSANA ####[place] [id number] USAM-Alvarez Not ObservedNormalNot ObservedMercer County Community HospitalComment on above: Performed By: #### SPE, KAPPA, ROSALEE SERUM ####[facility] ,#### FE and TIBC, [id number], OKSANA####[address] [place] [address] USAProtein [Mass/Vol]7.1 g/dLNormal6.0-8.5FProMedica Defiance Regional HospitalComment on above:Performed By: #### SPE, KAPPA, ROSALEE SERUM ####[facility] ,#### FE and TIBC, [id number], OKSANA####[place] [address] [place] [address] USASPE-NoteNormal.[facility] Community HospitalComment on above:Result Comment: Protein electrophoresis scan will follow via computer, mail, or temperature regulator pyrometer delivery. Performed at: [facility] LabMelinda [place] [id number] Glass Decorator: Colton Lane PhD, Phone: [phone] By: #### SPE, KAPPA, ROSALEE SERUM ####[facility] ,#### FE and TIBC, [id number], OKSANA####[place] [address] USAProtein [Mass/volume] in Serum or PlasmaOrdered By: Olga Lidia Mario on 95-73-4834Ybgugti [Mass/Vol]7.1 g/dL6.0-8.5 [facility] HospitalProtein [Mass/volume] in UrineOrdered By: Olga Lidia Mario on 79-03-7209Uqsoumv (U) [Mass/Vol]170.8 mg/dLNot Estab.[facility] HospitalProtein.monoclonal/Protein.total in 24 hour Urine by ElectrophoresisOrdered By: Olga Lidia Mario on 53-79-4378Fxcalee.monoclonal Elph (24H U) [Mass fraction]Not observed %Not ObservedMercer County Community Hospital Serum globulin measurement (mass/volume)Ordered By: Olga Lidia Mario on 11-15-2021 Globulin (S) [Mass/Vol]4.8 g/dL2.2-3.9Barnesville Hospitalerum or plasma albumin/globulin mass ratioOrdered By: Olga Lidia Mario on 11-15-2021 Albumin/Globulin [Mass ratio]0.5 {ratio}0.7-1.7FProMedica Defiance Regional Hospital Serum or plasma alpha 1 globulin measurement by electrophoresis (mass/volume) Ordered By: Olga Lidia Mario on 79-34-6815Ywafc 1 globulin Elph [Mass/Vol]0.3 g/dL 0.0-0.4FMercy Health Anderson Hospitalerum or plasma alpha 2 globulin measurement by electrophoresis (mass/volume)Ordered By: Olga Lidia Mario on 06-42-4781Kcuku 2 globulin Elph [Mass/Vol]0.8 g/dL0.4-1.0Barn[facility]ville Hospitalerum or plasma beta globulin measurement by electrophoresis (mass/volume)Ordered By: Olga Lidia Mario on 88-68-1978Inwr globulin Elph [Mass/Vol] 1.1 g/dL0.7-1.3FMercy Health Anderson Hospitalerum or plasma gamma globulin measurement by electrophoresis (mass/volume)Ordered By: Olga Lidia Mario on 09-70-1975Qygvl globulin Elph [Mass/Vol]2.5 g/dL0.4-1.8[facility] HospitalType and Screenon 36-29-6390KCG and Rh group Nom (Bld)Blood group O Rh(D) positiveNormalMercer County Community HospitalUrine alpha 1 globulin/total protein by electrophoresisOrdered By: Olga Lidia Mario on 11-15-2021 Alpha 1 globulin Elph (U) [Mass fraction]7.1 %.[facility] Urine alpha 2 globulin/total protein ratio by electrophoresisOrdered By: Olga Lidia Mario on 30-43-7302Tlbnh 2 globulin Elph (U) [Mass fraction]7.2 %.[facility] Community HospitalUrine beta globulin measurement by electrophoresis (mass/volume)Ordered By: Olga Lidia Mario on 29-65-2788Bbfl globulin Elph (U) [Mass/Vol]12.6 %.[facility] Community HospitalVit. B12/Folate Profileon 77-52-4554Zwaqubcrj (Vitamin B12) [Mass/Vol]825 pg/iPJzfofo312-708HhloupaphMercer County Community HospitalComment on above:Performed By: #### SPE, KAPPA, ROSALEE SERUM ####[facility] ,#### FE and TIBC, [id number], OKSANA####[place] [address] [place] [address] USAFolate6.8 ng/mLNormal >5.9[facility] HospitalComment on above:Result Comment: Folate reference range: >5.9 ng/ml The WHO technical consultation on folate and vitamin b12 deficiencies has determined that folate concentrations less than 4 ng/ml are considered deficient.PERFORMED BY:[place] [address] [address] [place], [place] [phone] MEDICAL DIRECTORCHRISTO PINO M.D.Performed By: #### SPE, KAPPA, ROSALEE SERUM ####[facility] ,#### FE and TIBC, [id number], OKSANA####[place] [address] [place] [address] USAVitamin D 25 Hydroxy Totalon 64-72-4368Ejajiok D 25 Hydroxy Total12.2 ng/hEXmk96-268MikyzqndcMercer County Community HospitalComment on above:Result Comment: VITAMIN D STATUS 25(OH)VITAMIN D RANGE (ng/mL) Deficient <20 Insufficient 20 to <30 Sufficient 30 to 100 Reference: Waylon MF,Xavier NC, [place] RIOS, et al. Evaluation,treatment, and prevention of vitamin D deficiency; an Endocrine Society clinical practice guideline.JCEM. 2010; 96(7):1911-30.PERFORMED BY:[address] LARKINMIGUELANGEL, [place] [phone] MEDICAL DIRECTORCHRISTO PINO M.D. Performed By: #### [id number], BMP, DIFF CBC ####[address] [address] USAAlbumin [Mass/volume] in Serum or PlasmaOrdered By: Ivan Springer on 12-51-1618Conbuno [Mass/Vol]2.4 g/dLLow 3.2-5.5FProMedica Defiance Regional HospitalComment on above:Performed By: #### CUBLD, LACTIC, CBC, PTT, CMP, DIFF CBC, PT ####[address] [address] USAAutomated erythrocytes count in urine sediment (number/area)Ordered By: Ivan Springer on 86-29-2285GLK Auto (Urine sed) [#/Area]3-4 [HPF]0-4FProMedica Defiance Regional HospitalAutomated leukocytes count in urine sediment (number/area)Ordered By: Ivan Springer on 18-74-4334XXR Auto (Urine sed) [#/Area]1-2 [HPF]0-4FProMedica Defiance Regional HospitalBasic Metabolic Panelon 40-04-5976Beltzws [Mass/Vol]8.1 mg/dLLow8.2-10.2FProMedica Defiance Regional HospitalComment on above:Performed By: #### BMP ####[place] [address] [place] [address] USAChloride [Moles/Vol] 108 mmol/VCxjeyr84-150PqutejzgvMercer County Community HospitalComment on above: Performed By: #### BMP ####[place] [place] [address] USACO2 [Moles/Vol]17.2 mmol/LLow22.0-30.0Mer[facility] Community HospitalComment on above:Performed By: #### BMP ####[place] [address] [place] [address] USACreatinine [Mass/Vol] 3.51 mg/dLHigh0.64-1.27[facility] Community HospitalComment on above: Performed By: #### BMP ####[place] [place] [address] USACreatinine Clr Calc Lppgqmql38.76NoProvidence HospitalComment on above:Result Comment: PERFORMED BY:[address] [place], [place] [phone] MEDICAL DIRECTORCHRISTO PINO M.D.Performed By: #### BMP ####[place] [address] [place] [address] USAEstimated GFR ( Cristo 21Premier HealthComment on above:Result Comment: GFR estimated reference range: According to KDOQI guidelines, <60 ml/min/1.73m2 is sufficient to diagnose a patient with chronic kidney disease.Performed By: #### BMP ####[address] [address] [place] Performed By: #### CUBLD, LACTIC, CBC, PTT, CMP, DIFF CBC, PT ####[address] [address] USAEstimated GFR (Non- Tv02JvaifjSrxaxzbfjMercer County Community HospitalComment on above:Performed By: #### BMP ####[address] [address] USAGlucose [Mass/Vol]108 mg/lEUbqp70-132LjshylhnvMercer County Community Hospital Comment on above:Result Comment: Random Glucose Reference Range is dependent on time and content of last meal. Glucose of more than 200 mg/dL in a nonstressed, ambulatory subject supports the diagnosis of Diabetes Mellitus. ADA recommended reference rangePerformed By: #### BMP ####[place] [id number] USAPotassium [Moles/Vol]5.6 mmol/LHigh3.5-5.1 [facility] HospitalComment on above:Performed By: #### BMP ####[address] [address] USASodium [Moles/Vol]135 mmol/JWgp657-111GsfpeykdzMercer County Community HospitalComment on above:Performed By: #### BMP ####[address] [address] USAUrea nitrogen [Mass/Vol]34 mg/dLHigh9-23Mer[facility] Community HospitalComment on above:Performed By: #### BMP ####[address] [address] USAPerformed By: #### CUBLD, LACTIC, CBC, PTT, CMP, DIFF CBC, PT ####[address] [address] USABilirubin Test strip Ql (U)Ordered By: Ivan Springer on 30-59-1752Lihjewhjl Ql (U)NegativeNegativeMercer County Community HospitalBlood Cultureon 01-94-6733Ovtaqguf identified Cx Nom (Bld)NO GROWTH 5 DAYS PERFORMED BY: [facility] [address] [place] [id number] PATHOLOGIST HELP DESK SUPPORT SPECIALIST CHRISTO PINO M.D.NormalMercer County Community HospitalComment on above: Performed By: #### CUBLD, LACTIC, CBC, PTT, CMP, DIFF CBC, PT ####[facility] [address] [place] [id number] USACOVID-19 Antigenon 50-79-0827HYHCS-19 AntigenNormalMercer County Community HospitalComment on above:Performed By: #### SOFIANEG, COVID-19 LEENA ####[facility] [place] [address] USACOVID-19 FRMCon 30-88-1514PKHY-CoV-2 (COVID-19) RNA JAYMIE+probe Ql (Unsp spec)PositiveCritically abnormalNegative [facility] HospitalComment on above:Order Comment: Healthcare Worker?: NResult Comment: Positive results will only be called to Providers for the following groups of patients: Pre-Surgical Testing, Emergency Room, and Inpatients. Results called at 2141 on 11/14/21 Testing for SARS-CoV-2 by RT-PCR This test was developed and its performance characteristics determined [place] ([employer] and validated at the [facility]. This test has not been FDA cleared or approved. This test has been authorized by FDA under an Emergency Use Authorization (EUA). This test has been validated in accordance with the FDA's Guidance Document (Policyfor Diagnostics Testing in Laboratories Certified to Perform [...] the authorization is terminated or revoked sooner.PERFORMED BY:[facility] [place], [place] [phone] ANNA PINO M.D. Performed By: #### COVID 19 [facility] ####[facility] [address] [place] [address] USACOVID-19 Positive/NegativeOrdered By: Ivan Springer on 37-44-2125VVPA-CoV-2 (COVID-19) N gene JAYMIE+probe Ql (Resp)PositiveNegative [facility] HospitalComment on above:Positive results will only be called to Providers for the following groups of patients: Pre-Surgical Testing, Emergency Room, and Inpatients. Results called at 2140 on 11/14/21 Testing for SARS-CoV-2 by RT-PCR This test was developed and its performance characteristics determined by [employer] ([employer]) and validated at the [facility]. This test has not been FDA [...] of time the declaration that circumstances exist ju stifying the authorization of the emergency use of in vitro diagnostic tests for detection of SARS-CoV-2 virus and/or diagnosis of COVID-19 infection under section 564(b)(1) of the Act, 21 U.S.C. 360bbb-3(b)(1), unless the authorization is terminated or revoked sooner.Positive results will only be called to Providers for the following groups of patients: Pre-Surgical Testing, Emergency Room, and Inpatients.Results calledat 2141 on 11/14/21 Testing for SARS-CoV-2 by RT-PCRThis test was developed and its performance characteristics determined by [employer] ([employer] and validated at the [facility]. This test has not been FDA [...] unless the authorization is terminated or revoked sooner.COVID-19 SOFIAOrdered By: Ivan Springer on 11-25-1984CTMP-CoV+SARS-CoV-2 (COVID-19) Ag IA.rapid Ql (Resp)NegativeNegative [facility] HospitalComment on above:This is a duplicate Leena SARS Antigen (KATHLEEN) result to be used for statistical tracking purpose only.Color Auto (U)Ordered By: Ivan Springer on 72-02-4339Mqbbs (U)YellowYelFirelands Regional Medical CenterComplete Blood Count Auto Diffon 30-54-7595Tvjkbnbevtf distribution width (RBC) [Ratio]18.3 %High12.0-14.8[facility] HospitalComment on above:Performed By: #### CUBLD, LACTIC, CBC, PTT, CMP, DIFF CBC, PT ####[facility] [place] [address] USAHematocrit (Bld) [Volume fraction]27.9 %Low38.8-50.0[facility] HospitalComment on above:Performed By: #### CUBLD, LACTIC, CBC, PTT, CMP, DIFF CBC, PT ####[facility] [place] [address] USAHemoglobin (Bld) [Mass/Vol]8.7 g/dLLow13.0-17.0[facility] HospitalComment on above:Performed By: #### CUBLD, LACTIC, CBC, PTT, CMP, DIFF CBC, PT ####[address] [address] [facility] (RBC) [Entitic mass]27.4 pgLow27.5-35.2FProMedica Defiance Regional HospitalComment on above:Performed By: #### CUBLD, LACTIC, CBC, PTT, CMP, DIFF CBC, PT ####[address] [address] [facility] (RBC) [Entitic vol]87.6 zWJxrpbh20.5-101[facility] Comment on above:Performed By: #### CUBLD, LACTIC, CBC, PTT, CMP, DIFF CBC, PT ####[place] [id number] [facility] MEDICAL CENTERMean Corpuscular HGB Conc31.3 g/dLLow32.5-35.6FProMedica Defiance Regional Hospital Comment on above:Performed By: #### CUBLD, LACTIC, CBC, PTT, CMP, DIFF CBC, PT ####[place] [id number] [place] Nucleated RBC/100 WBC (Bld) [Ratio]0.1 %Normal0-0.5FProMedica Defiance Regional HospitalComment on above:Result Comment: PERFORMED BY:[address] [place]ITTNYEllenJeanetteM[place], [place] [phone] MEDICAL DIRECTORCHRISTO PINO M.D.Performed By: #### CUBLD, LACTIC, CBC, PTT, CMP, DIFF CBC, PT ####[place] [id number] USAPlatelet mean volume (Bld) [Entitic vol]10.0 fLNormal6.6-10.1FProMedica Defiance Regional HospitalComment on above:Performed By: #### CUBLD, LACTIC, CBC, PTT, CMP, DIFF CBC, PT ####[place] [address] USAPlatelets (Bld) [#/Vol]290 10*3/oBHdvwln162-386 [facility] HospitalComment on above:Performed By: #### CUBLD, LACTIC, CBC, PTT, CMP, DIFF CBC, PT ####[facility] [place] [address] USARBC (Bld) [#/Vol]3.18 10*6/uLLow3.90-5.60[facility] HospitalComment on above:Performed By: #### CUBLD, LACTIC, CBC, PTT, CMP, DIFF CBC, PT ####[address] [place] [address] USAWBC (Bld) [#/Vol]19.8 10*3/uLHigh4.5-11.0[facility] HospitalComment on above:Performed By: #### CUBLD, LACTIC, CBC, PTT, CMP, DIFF CBC, PT ####[address] [place] [address] USAComprehensive Metabolic Panelon 54-74-5794QZO [Catalytic activity/Vol]18 U/RNwevcp09-96InjzuwxwnMercer County Community Hospital Comment on above:Performed By: #### CUBLD, LACTIC, CBC, PTT, CMP, DIFF CBC, PT ####[address] [place] [address] USACalcium [Mass/Vol]8.3 mg/dLNormal8.2-10.2FProMedica Defiance Regional HospitalComment on above:Performed By: #### CUBLD, LACTIC, CBC, PTT, CMP, DIFF CBC, PT ####[address] [place] [address] [place] Chloride [Moles/Vol]107 mmol/UVipcau64-656XfrpqdjvkMercer County Community Hospital Comment on above:Performed By: #### CUBLD, LACTIC, CBC, PTT, CMP, DIFF CBC, PT ####[address] [place] [address] USACO2 [Moles/Vol]17.9 mmol/LLow22.0-30.0[facility] HospitalComment on above:Performed By: #### CUBLD, LACTIC, CBC, PTT, CMP, DIFF CBC, PT ####[address] [address] [place] Creatinine [Mass/Vol]3.43 mg/dLHigh0.64-1.27[facility] Comment on above:Performed By: #### CUBLD, LACTIC, CBC, PTT, CMP, DIFF CBC, PT ####[address] [place] [address] [place] Creatinine Clr Calc Vsnlnqri07.63NoProvidence HospitalComment on above:Result Comment: PERFORMED BY:[address] [place], [place] [phone] MEDICAL DIRECTORCHRISTO PINO M.D.Performed By: #### CUBLD, LACTIC, CBC, PTT, CMP, DIFF CBC, PT ####[address] [address] USAEstimated GFR (Non- Nz30EgwotzZnddhkbryPremier HealthComment on above:Performed By: #### CUBLD, LACTIC, CBC, PTT, CMP, DIFF CBC, PT ####[place] [id number] USAGlucose [Mass/Vol]162 mg/dL Cpix62-468KhuupfmrbMercer County Community HospitalComment on above:Result Comment: Random Glucose Reference Range is dependent on time and content of last meal. Glucose of more than 200 mg/dL in a nonstressed, ambulatory subject supports the diagnosis of Diabetes Mellitus. ADA recommended reference rangePerformed By: #### CUBLD, LACTIC, CBC, PTT, CMP, DIFF CBC, PT ####[address] [address] USAPotassium [Moles/Vol]6.1 mmol/LOff scale high3.5-5.1FProMedica Defiance Regional HospitalComment on above:Result Comment: Results called at 1346 on 11/14/21Performed By: #### CUBLD, LACTIC, CBC, PTT, CMP, DIFF CBC, PT ####[place] [id number] USASodium [Moles/Vol]134 mmol/URku443-345BnqiiyjmuMercer County Community HospitalComment on above:Performed By: #### CUBLD, LACTIC, CBC, PTT, CMP, DIFF CBC, PT ####[address] [place] [address] USADiff and CBCon 22-42-1481Yqmeleiwwaol Ql (Bld) ModeratePremier HealthComment on above:Performed By: #### CUBLD, LACTIC, CBC, PTT, CMP, DIFF CBC, PT ####[address] [address] USAHypochromasiaSlightPremier HealthComment on above:Performed By: #### CUBLD, LACTIC, CBC, PTT, CMP, DIFF CBC, PT ####[address] [address] USALymphocytes/100 WBC (Bld)3.0 %Normal.[facility] HospitalComment on above:Performed By: #### CUBLD, LACTIC, CBC, PTT, CMP, DIFF CBC, PT ####[address] [address] USAMonocytes/100 WBC (Bld)4.0 %Normal.[facility] HospitalComment on above:Performed By: #### CUBLD, LACTIC, CBC, PTT, CMP, DIFF CBC, PT ####[address] [address] USANeutrophils/100 WBC (Bld)97.0 %Normal.[facility] HospitalCombeaumont hospital on above:Performed By: #### CUBLD, LACTIC, CBC, PTT, CMP, DIFF CBC, PT ####[address] [address] USAOvalocytesSHighland District HospitalCombeaumont hospital on above:Performed By: #### CUBLD, LACTIC, CBC, PTT, CMP, DIFF CBC, PT ####[address] [address] USAPlatelet EstimateNormalNormOhioHealth Arthur G.H. Bing, MD, Cancer CenterCombeaumont hospital on above:Performed By: #### CUBLD, LACTIC, CBC, PTT, CMP, DIFF CBC, PT ####[address] [address] [place] Platelet MorphologyNormalNormalPremier HealthComment on above:Result Comment: PERFORMED BY:[address] [place], [place] [phone] MEDICAL DIRECTORCHRISTO PINO M.D. Performed By: #### CUBLD, LACTIC, CBC, PTT, CMP, DIFF CBC, PT ####[address] [address] USAPoikilocytosis ModerateNormParkwood HospitalComment on above:Performed By: #### CUBLD, LACTIC, CBC, PTT, CMP, DIFF CBC, PT ####[address] [address] USATarget CellsSlightPremier HealthComment on above:Performed By: #### CUBLD, LACTIC, CBC, PTT, CMP, DIFF CBC, PT ####[address] [address] USADipstick and Microscopicon 29-74-4666Oefutkqudw (U) ClearPremier HealthComment on above:Order Comment: Name Collection Type:: Sanchze CatheterPerformed By: #### CUU, ADDONUAPLUS ####[address] [place] Bacteria,UrineNone SeenNormalBullhead Community Hospitale SeenMercer County Community HospitalComment on above:Order Comment: Name Collection Type:: Sanchez CatheterPerformed By: #### CUU, ADDONUAPLUS ####[address] [address] USABilirubin,UrineNegativeNormalNegativeMercer County Community Hospital Comment on above:Order Comment: Name Collection Type:: Sanchez CatheterPerformed By: #### CUU, ADDONUAPLUS ####[address] USAColor (U)YellowNoalYWright-Patterson Medical CenterComment on above:Order Comment: Name Collection Type:: Sanchez Catheter Performed By: #### CUU, ADDONUAPLUS ####[address] USAGlucose Ql (U)NormalNormalNormalMercer County Community HospitalComment on above:Order Comment: Name Collection Type:: Sanchez CatheterPerformed By: #### CUU, ADDONUAPLUS ####[address] USAHyaline Casts,Hcorz2-2Gkwvmo4-2 [facility] HospitalComment on above:Order Comment: Name Collection Type:: Sanchez CatheterResult Comment: PERFORMED BY:[address] [address] [address] [place], [place] [phone] MEDICAL DIRECTORCHRISTO PINO M.D.Performed By: #### CUU, ADDONUAPLUS ####[address] USAKetones Ql (U)Negative NormalNegSt. Rita's HospitalComment on above:Order Comment: Name Collection Type:: Sanchez CatheterPerformed By: #### CUU, ADDONUAPLUS ####[address] [place] Leukocyte esterase Test strip Ql (U)NegativeNormalNegativeMercer County Community HospitalCombeaumont hospital on above:Order Comment: Name Collection Type:: Sanchez CatheterPerformed By: #### CUU, ADDONUAPLUS ####[address] USANitrite,UrineNegativeNormalNegative [facility] HospitalComment on above:Order Comment: Name Collection Type:: Sanchez CatheterPerformed By: #### CUU, ADDONUAPLUS ####[address] USAOccult Blood,UrineNegative NormalNegSt. Rita's HospitalComment on above:Order Comment: Name Collection Type:: Sanchez CatheterResult Comment: PERFORMED BY:[address] [address] [address] [address] [place], [place] [phone] MEDICAL DIRECTORCHRISTO PINO M.D.Performed By: #### CUU, ADDONUAPLUS ####[place] [address] [address] [place] USApH (U) 6.0 [pH]Normal5.0-9.0[facility] HospitalComment on above:Order Comment: Name Collection Type:: Sanchez CatheterPerformed By: #### CUU, ADDONUAPLUS ####[address] [place]AU[place], [place] USAProtein,Urine>=1000HighNegativeMercer County Community HospitalComment on above:Order Comment: Name Collection Type:: Sanchez CatheterPerformed By: #### CUU, ADDONUAPLUS ####[address] [place] [address] USARBC,Yjgtm7-4Bmvhjh4-9IsaplgykbProMedica Defiance Regional HospitalComment on above: Order Comment: Name Collection Type:: Sanchez CatheterPerformed By: #### CUU, ADDONUAPLUS ####[address] [place], [place] USASpecificy [place],Urine1.467Cajsxz8.001-1.030[facility] HospitalComment on above:Order Comment: Name Collection Type:: Sanchez Catheter Performed By: #### CUU, ADDONUAPLUS ####[address] By[place]AU[place], [place] USASquamous Epithelial Cell,Iltov9-3Cctnrj8-4IvtinngnhProMedica Defiance Regional HospitalComment on above:Order Comment: Name Collection Type:: Sanchez CatheterPerformed By: #### CUU, ADDONUAPLUS ####[address] [place], [place] USAUrobilinogen,UrineNormalNormalNormal [facility] HospitalComment on above:Order Comment: Name Collection Type:: Sanchez CatheterPerformed By: #### CUU, ADDONUAPLUS ####[address] [place], [place] USAWBC,Abvok1-0Scptgl0-4KxtriueovProMedica Defiance Regional HospitalComment on above:Order Comment: Name Collection Type:: Sanchez CatheterPerformed By: #### CUU, ADDONUAPLUS ####[facility] [place], [place] USAECG 12 lead ECGon 18-42-1511TYF 12 lead ECGPremier HealthGlucose Poct Glucometerson 63-64-4635Fqxejrl [Mass/Vol]191 mg/dLPremier Health Comment on above:Result Comment: Random Glucose Reference Range is dependent on time and content of last meal. Glucose of more than 200 mg/dL in a nonstressed, ambulatory subject supports the diagnosis of Diabetes Mellitus.PERFORMED BY:[address] [address] [address] INFANTEJeanetteMIGUELANGELAUMSV[place], [place] [phone] MEDICAL DIRECTORCHRISTO PINO M.D.Performed By: #### GLULS ####Point of Care testing,Lrowuvv4Wff9: Cleaned MeterPremier HealthComment on above:Result Comment: PERFORMED BY:[address] [address] [address] [place], [place] [phone] MEDICAL DIRECTORCHRISTO PINO M.D.Performed By: #### GLULS ####Point of Care testing,Glucose [Mass/Vol]97 mg/dLPremier HealthComment on above:Result Comment: Random Glucose Reference Range is dependent on time and content of last meal. Glucose of more than 200 mg/dL in a nonstressed, ambulatory subject supports the diagnosis of Diabetes Mellitus.Performed By: #### GLULS ####Point of Care testing,Ketones Auto test strip (U) [Mass/Vol] Ordered By: Ivan Springer on 85-64-3921Rdsrqkz (U) [Mass/Vol]NegativeNegative [facility] HospitalLaboratory - Chemistry and Chemistry - challengeOrdered By: Ivan Springer on 17-39-7884LY4 [Moles/Vol]19.4 mmol/L 24.0-29.0[facility] HospitalHCO3 (Bld) [Moles/Vol]18.2 mmol/L 23.0-29.0[facility] HospitalLaboratory - Microbiology and Antimicrobial susceptibilityOrdered By: Ivan Springer on 73-29-5159KURP-CoV-2 (COVID-19) RNA JAYMIE+probe Ql (Unsp spec)N/AFProMedica Defiance Regional Hospital Laboratory - UrinalysisOrdered By: Ivan Springer on 53-09-6037Cwngrmg casts LM Ql (Urine sed)0-8 [LPF]0-8[facility] HospitalLactic Acidon 46-78-6264Whptuwe [Moles/Vol]1.9 mmol/LNormal0.5-2.2FProMedica Defiance Regional HospitalComment on above:Result Comment: PERFORMED BY:[facility] [place], [place] [phone] MEDICAL DIRECTORCHRISTO PINO M.D.Performed By: #### CUBLD, LACTIC, CBC, PTT, CMP, DIFF CBC, PT ####[facility] [address] [place] [address] USANitrite Test strip Ql (U)Ordered By: Ivan Springer on 45-99-3686Cdzfqcu Ql (U)NegativeNegativeMercer County Community HospitalNo Panel InformationOrdered By: Ivan Springer on 17-87-3159Xaluu Gas Critical ValueSee commentMercer County Community HospitalComment on above:Critical Value called on: 11/14/2021 at 13:32Blood Gas Sample SiteVenousMercer County Community HospitalFiO221 % [facility] HospitalVenous Blood Base Excess-7.9 mmol/L-3.0-3.0 [facility] HospitalVenous Blood Oxygen Content4.7 mmol/L6.6-9.7 [facility] HospitalVenous Blood Oxygen Wfyazzorrc53.2 %73.0-76.0 [facility] HospitalVenous Blood Partial Pressure CO239.3 mm[Hg] 38.0-50.0[facility] HospitalVenous Blood Partial Pressure O243.7 mm[Hg]35.0-45.0[facility] HospitalVenous Blood pH7.287.32-7.43 [facility] HospitalARS Antigen (LFIA)[facility] HospitalOvalocyte detectionOrdered By: Ivan Springer on 72-78-5222Ofbkszfdyl LM Ql (Bld)SlightMercer County Community HospitalPartial Thromboplastin Timeon 51-21-3565kMMW Coag (Bld) [Time]34.5 vLbpfrh92.1-36.5FProMedica Defiance Regional HospitalComment on above:Result Comment: PERFORMED BY:[address] [place], [place] [phone] MEDICAL DIRECTORCHRISTO PINO M.D.Performed By: #### CUBLD, LACTIC, CBC, PTT, CMP, DIFF CBC, PT ####[place] [place] [address] USAProtein Auto test strip (U) [Mass/Vol]Ordered By: Ivan Springer on 11-14-2021 Protein (U) [Mass/Vol]mg/dLNegativeMercer County Community HospitalProtein [Mass/volume] in Serum or PlasmaOrdered By: Ivan Springer on 32-49-2997Oaxzdyg [Mass/Vol]8.2 g/dLHigh6.1-7.9[facility] HospitalComment on above: Performed By: #### CUBLD, LACTIC, CBC, PTT, CMP, DIFF CBC, PT ####[address] [place] [address] USAProthrombin Time INR on 26-06-1609DPZ Coag (PPP) [Relative time]1.2 {INR}NormalMercer County Community HospitalComment on above:Result Comment: INR Therapeutic Range A) Pre- and [...] patients with mechanical heart valves: 3 - 4.5Performed By: #### CUBLD, LACTIC, CBC, PTT, CMP, DIFF CBC, PT ####[facility] [place] [address] USAPT Coag (PPP) [Time]13.4 sHigh9.0-12.9[facility] HospitalComment on above:Performed By: #### CUBLD, LACTIC, CBC, PTT, CMP, DIFF CBC, PT ####[address] [place] [address] USASerum globulin measurement by calculation (mass/volume)Ordered By: Ivan Springer on 07-03-4481Pzcdqinj (S) [Mass/Vol]5.8 g/dLNormalMercer County Community HospitalComment on above:Performed By: #### CUBLD, LACTIC, CBC, PTT, CMP, DIFF CBC, PT ####[place] [place] [id number] USASerum or plasma alanine aminotransferase measurement without P-5'-P (enzymatic activiOrdered By: Ivan Springer on 42-75-6053QNF No additional P-5'-P [Catalytic activity/Vol]18 U/L10-60 Barnesville Hospitalerum or plasma albumin/globulin mass ratio Ordered By: Ivan Springer on 24-51-4996Xqiwygv/Globulin [Mass ratio]0.4 {ratio} Premier HealthComment on above:Performed By: #### CUBLD, LACTIC, CBC, PTT, CMP, DIFF CBC, PT ####[address] [address] USASerum or plasma alkaline phosphatase measurement (enzymatic activity/volume)Ordered By: Ivan Springer on 11-14-2021 ALP [Catalytic activity/Vol]143 U/KUreq30-04FefjqganmMercer County Community Hospital Comment on above:Performed By: #### CUBLD, LACTIC, CBC, PTT, CMP, DIFF CBC, PT ####[address] [address] USASerum or plasma aspartate aminotransferase measurement (enzymatic activity/volume) Ordered By: Ivan Springer on 49-95-0248AQC [Catalytic activity/Vol]30 U/LNormal 10-42[facility] HospitalComment on above:Performed By: #### CUBLD, LACTIC, CBC, PTT, CMP, DIFF CBC, PT ####[facility] [place] [address] USASerum or plasma total bilirubin measurement (mass/volume)Ordered By: Ivan Springer on 22-25-1788Jpftewbiy [Mass/Vol]0.6 mg/dLNormal0.3-1.2FProMedica Defiance Regional HospitalComment on above:Performed By: #### CUBLD, LACTIC, CBC, PTT, CMP, DIFF CBC, PT ####[address] [place] [address] USASofia Ag Negativeon 11-14-2021 Leena Ag NegativeNegativeNormalNegativeMercer County Community HospitalComment on above:Result Comment: This is a duplicate Leena SARS Antigen (KATHLEEN) result to be used for statistical tracking purpose only.PERFORMED BY:[address] [place], [place] [phone] MEDICAL DIRECTORCHRISTO PINO M.D.Performed By: #### SOFIANEG, COVID-19 LEENA ####[address] [address] [place] Specific gravity Auto test strip (U) [Rel density]Ordered By: Ivan Springer on 95-45-0677Nhnvaabl gravity (U) [Rel density]1.0171.001-1.030Barnesville Hospitalquamous epithelial cells detection in urine sediment by light microscopyOrdered By: Ivan Springer on 82-36-9141Zkodoqdybb cells.squamous LM Ql (Urine sed)0-1 [HPF]0-2FProMedica Defiance Regional HospitalUrine Cultureon 13-62-6648Iyphauxg identified Cx Nom (U)No Growth 2 Days PERFORMED BY: [facility] [address] [place] [address] PATHOLOGIST HELP DESK SUPPORT SPECIALIST CHRISTO PINO M.D.NormalMercer County Community HospitalComment on above: Performed By: #### CUU, ADDONUAPLUS ####[address] USAUrine bacteria detection by automated methodOrdered By: Ivan Springer on 39-20-4295Pqfapnsc Auto Ql (U)None seenNone SeenMercer County Community HospitalUrine clarity by refractometry automatedOrdered By: Ivan Springer on 12-65-3845Mdrybkd Refractometry automated (U)ClearClear [facility] HospitalUrine glucose measurement by automated test strip (mass/volume)Ordered By: Ivan Springer on 81-76-4950Avrdbjs Auto test strip (U) [Mass/Vol]Normal mg/dLNoProvidence HospitalUrine hemoglobin detection by automated test stripOrdered By: Ivan Springer on 81-52-0696Mrlwiywrxs Auto test strip Ql (U)NegativeNegativeMercer County Community HospitalUrine lactic acid measurementOrdered By: Ivan Springer on 90-59-5015Beworck (U) [Moles/Vol]1.9 mmol/L0.5-2.2FProMedica Defiance Regional HospitalUrine leukocyte esterase detection by automated test stripOrdered By: Ivan Springer on 65-45-8234Xsoyjuflk esterase Auto test strip Ql (U)Negative NegativeMercer County Community HospitalUrobilinogen Auto test strip (U) [Mass/Vol]Ordered By: Ivan Springer on 49-53-1509Cwvwwkpieahq (U) [Mass/Vol] Normal mg/dLNoProvidence HospitalVenous Blood Gason 11-14-2021 CO2 [Moles/Vol]19.4 mmol/LLow24.0-29.0[facility] HospitalComment on above:Performed By: #### VBG ####Point of Care testing,HCO3 (Bld) [Moles/Vol] 18.2 mmol/LLow23.0-29.0[facility] Community HospitalComment on above: Performed By: #### VBG ####Point of Care testing,Respiratory CriticalNormal [facility] HospitalComment on above:Result Comment: Critical Value called on: 11/14/2021 at 13:32PERFORMED BY:[facility] [place], [place] [phone] MEDICAL DIRECTORCHRISTO PINO M.D.Performed By: #### VBG ####Point of Care testing,VBG Base Excess-7.9 mmol/LLow-3.0-3.0[facility] HospitalComment on above:Performed By: #### VBG ####Point of Care testing,VBG Draw SiteVenousNormal [facility] HospitalComment on above:Performed By: #### VBG ####Point of Care testing,VBG Frac Inspired O221 %Premier HealthComment on above:Performed By: #### VBG ####Point of Care testing, VBG O2 Content4.7 mmol/LLow6.6-9.7FProMedica Defiance Regional HospitalComment on above:Performed By: #### VBG ####Point of Care testing,VBG Oxygen Hdmadqrtxc60.2 %Ahzwul40.0-76.0[facility] HospitalComment on above:Performed By: #### VBG ####Point of Care testing,VBG KRX747.3 mm[Hg]Dpjden03.0-50.0[facility] HospitalComment on above:Performed By: #### VBG ####Point of Care testing,VBG PH Venous PH7.28Low7.32-7.43[facility] Comment on above:Performed By: #### VBG ####Point of Care testing,VBG PO243.7 mm[Hg]Grxajp05.0-45.0[facility] HospitalComment on above:Performed By: #### VBG ####Point of Care testing,XR foot RT min 3V*on 72-96-8875RP foot RT min 3V*Premier HealthpH Auto test strip (U)Ordered By: Ivan Springer on 58-40-9908bF (U)6.0 [pH]5.0-9.0[facility] HospitalBasophil percentageOrdered By: Jose M Landry on 09-13-2021 Basophils/100 WBC (Bld)9 %1-3FProMedica Defiance Regional HospitalEosinophils/100 WBC (Bld)9 %1-3FProMedica Defiance Regional HospitalBlood polychromasia detection by light microscopyOrdered By: Jose M Landry on 79-03-2114Navbcjtjyqswk LM Ql (Bld)SlightMercer County Community HospitalDiff and CBCon 09-13-2021 Anisocytosis Ql (Bld)MarkedNoProvidence HospitalComment on above:Performed By: #### DIFF CBC ####[address] [address] USAEosinophils/100 WBC (Bld)9 %High1-3FProMedica Defiance Regional HospitalComment on above:Performed By: #### DIFF CBC ####[address] [address] [facility] Erythrocyte distribution width (RBC) [Ratio]19.9 %High12.0-14.8Mer[facility] Community HospitalComment on above:Performed By: #### DIFF CBC ####[address] [address] [place] Hematocrit (Bld) [Volume fraction]26.3 %Low38.8-50.0[facility] Community HospitalComment on above:Performed By: #### DIFF CBC ####[address] [address] USAHemoglobin (Bld) [Mass/Vol]8.2 g/dLLow13.0-17.0[facility] Community HospitalCombeaumont hospital on above:Performed By: #### DIFF CBC ####[address] [address] USALarge PlateletsSlightNoProvidence HospitalComment on above:Result Comment: PERFORMED BY:[address] [place], [place] [phone] MEDICAL DIRECTORCHRISTO PINO M.D. Performed By: #### DIFF CBC ####[address] [address] USALymphocytes/100 WBC (Bld)50 %Uyei42-48EjfmkueylMercer County Community HospitalComment on above:Performed By: #### DIFF CBC ####[address] [address] USAMCH (RBC) [Entitic mass]28.8 neCphrpx34.5-35.2FProMedica Defiance Regional Hospital Comment on above:Performed By: #### DIFF CBC ####[place] [id number] [facility] ([facility]) [Entitic vol]92.5 fLNormal 83.5-101Mercer County Community HospitalComment on above:Performed By: #### DIFF CBC ####[place] [address] USAMean Corpuscular HGB Conc31.1 g/dLLow32.5-35.6FProMedica Defiance Regional HospitalComment on above:Performed By: #### DIFF CBC ####[place] [address] USAMonocytes/100 WBC (Bld)14 % High2-11[facility] County Community HospitalComment on above:Performed By: #### DIFF CBC ####[place] [id number] USANucleated RBC/100 WBC (Bld) [Ratio]5.1 %High0-0.5FProMedica Defiance Regional HospitalComment on above:Performed By: #### DIFF CBC ####[place] [id number] USANucleated Red Blood Cell5 /100{WBC}High0-0[facility] County Community HospitalComment on above:Performed By: #### DIFF CBC ####[place] [id number] USAOvalocytesSlightNoProvidence HospitalComment on above:Performed By: #### DIFF CBC ####[place] [id number] USAPlatelet EstimateNormalNormalNoProvidence HospitalComment on above:Performed By: #### DIFF CBC ####[place] [id number] [place] Platelet mean volume (Bld) [Entitic vol]11.0 fLHigh6.6-10.1FProMedica Defiance Regional HospitalComment on above:Performed By: #### DIFF CBC ####[facility] [place] [address] USAPlatelets (Bld) [#/Vol]310 10*3/ySJlpyyl079-235PfmkbibvhMercer County Community HospitalComment on above:Performed By: #### DIFF CBC ####[address] [address] USAPoikilocytosisSHighland District HospitalComment on above:Performed By: #### DIFF CBC ####[address] [address] USAPolychromasiaSApex Medical Centeral [facility] County Community HospitalComment on above:Performed By: #### DIFF CBC ####[address] [address] USARBC (Bld) [#/Vol]2.84 10*6/uLLow3.90-5.60[facility] County Community HospitalComment on above:Performed By: #### DIFF CBC ####[address] [address] USASegmented neutrophils/100 WBC (Bld)27 %Mlj44-96 [facility] HospitalCombeaumont hospital on above:Performed By: #### DIFF CBC ####[address] [address] USATarget CellsSHighland District HospitalComment on above:Performed By: #### DIFF CBC ####[address] [address] USAWBC (Bld) [#/Vol]11.8 10*3/uLHigh4.5-11.0[facility] County Community HospitalComment on above:Performed By: #### DIFF CBC ####[address] [address] USALymphocytes/100 WBC Auto (Bld) Ordered By: Jose M Landry on 01-75-3932Lkcvigfgenn/100 WBC (Bld)50 %18-42 [facility] HospitalMR foot RT wo conon 15-37-3962IU foot RT wo con NormalMercer County Community HospitalMonocyte %Ordered By: Jose M Landry on 21-58-4821Oeaaqgsme/100 WBC (Bld)9 %1-3FProMedica Defiance Regional Hospital Monocytes/100 WBC Manual cnt (Bld)Ordered By: Jose M Landry on 09-13-2021 Monocytes/100 WBC (Bld)14 %2-11[facility] HospitalNo Panel InformationOrdered By: Jose M Landry on 54-38-6141Oupyq PlateletsSShelby Memorial HospitalNucleated Red Blood Cells/100 WBC5 /100{WBC}0-0 [facility] HospitalPoikilocytosisSumma Health5 /100{WBC}0-0[facility] Medical CenterOvalocyte detectionOrdered By: Jose M Landry on 09-13-2021 Ovalocytes LM Ql (Bld)SlightBarnesville Hospitalegmented neutrophils/100 WBC Manual cnt (Bld)Ordered By: Jose M Landry on 09-13-2021 Segmented neutrophils/100 WBC (Bld)27 %50-70[facility] Diff and CBCon 71-50-4945Pfsjbrjcxqdh Ql (Bld)ModerateNormalMercer County Community HospitalComment on above:Performed By: #### DIFF CBC, FE and TIBC, OKSANA ####[facility] [address] [place] [address] [place] Eosinophils/100 WBC (Bld)3 %Normal1-3FProMedica Defiance Regional HospitalComment on above:Performed By: #### DIFF CBC, FE and TIBC, OKSANA ####[facility] [address] [place] [address] USAErythrocyte distribution width (RBC) [Ratio]18.9 %High12.0-14.8Mer[facility] County Community HospitalComment on above:Performed By: #### DIFF CBC, FE and TIBC, OKSANA ####[facility] [place] [address] USAHematocrit (Bld) [Volume fraction]23.6 %Low38.8-50.0[facility] County Community HospitalComment on above: Performed By: #### DIFF CBC, FE and TIBC, OKSANA ####[address] [address] USAHemoglobin (Bld) [Mass/Vol]7.6 g/dLLow 13.0-17.0[facility] Community HospitalComment on above:Performed By: #### DIFF CBC, FE and TIBC, OKSANA ####[address] [address] USAHypochromasiaSlightNormParkwood HospitalComment on above:Performed By: #### DIFF CBC, FE and TIBC, OKSANA ####[address] [address] [place] Lymphocytes/100 WBC (Bld)35 %Pnjgwc31-71ChowefjbaMercer County Community HospitalComment on above:Performed By: #### DIFF CBC, FE and TIBC, OKSANA ####[address] [address] [facility] ([facility] [Entitic mass]29.5 edFsezot10.5-35.2FProMedica Defiance Regional HospitalComment on above:Performed By: #### DIFF CBC, FE and TIBC, OKSANA ####[address] [address] [facility] (RBC) [Entitic vol]91.4 iKWmxcly34.5-101 [facility] HospitalComment on above:Performed By: #### DIFF CBC, FE and TIBC, OKSANA ####[address] [address] USAMean Corpuscular HGB Conc32.3 g/dLLow32.5-35.6FProMedica Defiance Regional HospitalComment on above:Performed By: #### DIFF CBC, FE and TIBC, OKSANA ####[place] [id number] [place] Monocytes/100 WBC (Bld)7 %Normal2-11[facility] Community HospitalComment on above:Performed By: #### DIFF CBC, FE and TIBC, OKSANA ####[address] [address] USANucleated RBC/100 WBC (Bld) [Ratio]0.1 %Normal0-0.5FProMedica Defiance Regional HospitalComment on above:Result Comment: PERFORMED BY:[place] [address] [address] [place], [place] [phone] MEDICAL DIRECTORCHRISTO PINO M.D.Performed By: #### DIFF CBC, FE and TIBC, OKSANA ####[address] [address] USAPlatelet EstimateNormalNormalNoProvidence HospitalComment on above:Performed By: #### DIFF CBC, FE and TIBC, OKSANA ####[address] [address] USAPlatelet mean volume (Bld) [Entitic vol]9.6 fLNormal6.6-10.1FProMedica Defiance Regional HospitalComment on above:Performed By: #### DIFF CBC, FE and TIBC, OKSANA ####[address] [address] USAPlatelet MorphologyNormalNormalPremier HealthComment on above:Result Comment: PERFORMED BY:[address] [place], [place] [phone] MEDICAL DIRECTORCHRISTO PINO M.D.Performed By: #### DIFF CBC, FE and TIBC, OKSANA ####[address] [address] USAPlatelets (Bld) [#/Vol]205 10*3/uL Cbdnzv735-683QhghlybbyMercer County Community HospitalComment on above:Performed By: #### DIFF CBC, FE and TIBC, OKSANA ####[address] [address] USARBC (Bld) [#/Vol]2.58 10*6/uLLow3.90-5.60[facility] HospitalComment on above:Performed By: #### DIFF CBC, FE and TIBC, OKSANA ####[address] [address] USASegmented neutrophils/100 WBC (Bld)55 %Fslina37-40DtbzxsgrjMercer County Community HospitalComment on above:Performed By: #### DIFF CBC, FE and TIBC, OKSANA ####[address] [address] USATarget CellsSlightNormalMercer County Community HospitalComment on above:Performed By: #### DIFF CBC, FE and TIBC, OKSANA ####[address] [address] USAWBC (Bld) [#/Vol]10.4 10*3/uLNormal4.5-11.0[facility] Community HospitalComment on above:Performed By: #### DIFF CBC, FE and TIBC, OKSANA ####[address] [address] USAFerritinon 11-75-8140Qiczvses [Mass/Vol]30.4 ng/rJLtfaxu97.9-336.2FProMedica Defiance Regional HospitalComment on above:Result Comment: PERFORMED BY:[address] [place], [place] [phone] MEDICAL DIRECTORCHRISTO PINO M.D.Performed By: #### DIFF CBC, FE and TIBC, OKSANA ####[address] [address] USAIron and TIBC Profileon 09-05-2021% Iron Zazaughhes35.0 %Xufaln09-45KierjojzeMercer County Community HospitalComment on above:Performed By: #### DIFF CBC, FE and TIBC, OKSANA ####[address] [address] USAIron [Mass/Vol]89 ug/vGIblblt74-848TpzvhkeatMercer County Community HospitalComment on above:Performed By: #### DIFF CBC, FE and TIBC, OKSANA ####[address] [address] USATotal Iron Binding Vcejnryd077 ug/zBWoktpz307-329SxkfazidcMercer County Community HospitalComment on above:Performed By: #### DIFF CBC, FE and TIBC, OKSANA ####[facility] [address] [place] [address] USATransferrin [Mass/Vol]223 mg/uLUzxkoo020-857 [facility] Community HospitalComment on above:Performed By: #### DIFF CBC, FE and TIBC, OKSANA ####[facility] [address] [place] [address] USALaboratory - Hematology and Cell countsOrdered By: Jose M Landry on 25-25-2830Tmjk form neutrophils/100 WBC (Bld)1 %[address] Hall StreetLymphocytes/100 WBC Manual cnt (Bld)Ordered By: Jose M Landry on 70-92-5431Dihzfaztkkv/100 WBC (Bld)2 %0[facility] Metamyelocytes/100 WBC Manual cnt (Bld)Ordered By: Jose M Landry on 63-97-8127Tkxgtjedvcnrle/100 WBC (Bld)1 %[address]No Panel InformationOrdered By: Jose M Landry on %[address] StreetErythrocyte [place] body detectionon 07-18-2020 [place] bodies LM Ql (Bld)[facility] Erythrocyte sedimentation rate by Photometric methodon 07-96-6496GCJ Photometric method (Bld) [Velocity]128 mm/hr0-19[facility] HospitalNo Panel Informationon 82-75-1041Jivbumsa CellSlightMercer County Community Hospital Methylmalonic Acid CommentSee comment.[facility] County Community HospitalComment on above:This test was developed and its performance characteristics determined by [employer]. It has not been cleared or approved by the Food and Drug Administration. Performed at: [address] [id number] Glass Decorator: Fabienne Harmon MD, Phone: [phone] test was developed and its performance characteristicsdetermined by [facility]. It has not been cleared orapproved by the Food and Drug Administration.Performed at: [facility] EpiBoneRanken [facility] [place], [place] [id number] Director: Fabienne Harmon MD, Phone: [phone] Hospitalee comment. Barnesville Hospitalerum or plasma erythropoietin (EPO) measurement (units/volume)on 23-64-6142Buplhzbxgraddc (EPO) Qn12.1 mIU/mL 2.6-18.5FProMedica Defiance Regional HospitalComment on above:AdWiredel DxI 800 Immunoassay System Values obtained with different assay methods or kits cannot be used interchangeably. Results cannot be interpreted as absolute evidence of the presence or absence of malignant disease. Performed at: [facility] [id number] Glass Decorator: Colton Lane PhD, Phone: [phone] Coulter [employer] DxI 800 Immunoassay SystemValues obtained with different assay methods or kits cannotbe used interchangeably. Results cannot be interpreted asabsolute evidence of the presence or absence of malignantdisease.Performed at: [employer] [id number] Director: Colton Lane PhD, Phone: [phone] or plasma methylmalonate measurement (moles/volume)on 60-05-1092Tiejpgjpkblgka [Moles/Vol]741 nmol/L[address] [place] [address] Vital Signs Date TimeVital SignValuePerforming EuofgcepgWupkyviw64-05-2338 14:40-0400 Diastolic blood hgnqlnaf12 mm[Hg]Mervat Santiago PRINT LINE INSPECTOR-C Work Phone: [facility]10-09-2025 14:40-0400 Heart rate86 /minMervat Santiago PRINT LINE INSPECTOR-C Work Phone: [facility]10-09-2025 14:40-0400 Respiratory rate16 /minMervat Santiago PRINT LINE INSPECTOR-C Work Phone: [facility]10-09-2025 14:40-0400 SaO2% (BldA) [Mass fraction]95 %Mervat Santiago PRINT LINE INSPECTOR-C Work Phone: [phone])309-[facility]10-09-2025 14:40-0400 Systolic blood qgiclvgk653 mm[Hg]Mervat Spasic PRINT LINE INSPECTOR-C Work Phone: [phone])[address]10-09-2025 10:35-0400 Body seujrb735.96 cmLaura Spasic PRINT LINE INSPECTOR-C Work Phone: 1(027)073-[address] [place], [place] [address]10-09-2025 10:35-0400 Body qmomxnrcrwo68.8 [degF]Mervat Spasic PRINT LINE INSPECTOR-C Work Phone: [phone])[address]10-09-2025 10:35-0400 Body dycuhs95.52 kgSavannahura Spasic PRINT LINE INSPECTOR-C Work Phone: [phone])[address]07-11-2025 10:01-0400 Diastolic blood esgkeksb05 mm[Hg]Johan Taylor MD Work Phone: 1(501)[address]07-11-2025 10:01-0400 Heart rate84 /Db Taylor MD Work Phone: 1(717)[address]07-11-2025 10:01-0400 Respiratory rate16 /Db Taylor MD Work Phone: 1(196)[address] [place], [place] [address]07-11-2025 10:01-0400 SaO2% (BldA) [Mass fraction]100 %Johan Taylor MD Work Phone: 1(956)[address]07-11-2025 10:01-0400 Systolic blood yosnatsj571 mm[Hg]Johan Taylor MD Work Phone: [phone])[address]07-11-2025 08:16-0400 Body socxzvinlvf82.5 [degF]Mervat Spasic PRINT LINE INSPECTOR-C Work Phone: 1(847)055-[address] [place], [place] [address]07-11-2025 06:30-0400 Body eixytv508.96 Keyona Taylor MD Work Phone: [phone])[address]07-11-2025 06:30-0400 Body ladpsuyvxsr17.6 [degF]Johan Taylor MD Work Phone: 1(090)[address] [place], [place] [address]07-11-2025 06:30-0400 Body ikwmsi89.52 kgJohan Taylor MD Work Phone: 1(665)[address] [place], [place] [address]07-10-2025 07:53-0400 Body ezpyuqvsotw70.9 [degF]Johan Taylor MD Work Phone: 1(008)[address] [place], [place] [address]07-10-2025 07:53-0400 Diastolic blood viviwbtw25 mm[Hg]Johan Taylor MD Work Phone: 1(150)[address] [place], [place] [address]07-10-2025 07:53-0400 Heart rate91 /Db Taylor MD Work Phone: 1(573)[address] [place], [place] [address]07-10-2025 07:53-0400 Respiratory rate18 /Db Taylor MD Work Phone: 1(025)[address] [place], [place] [address]07-10-2025 07:53-0400 SaO2% (BldA) [Mass fraction]96 %Johan Taylor MD Work Phone: 1(076)[address] [place], [place] [address]07-10-2025 07:53-0400 Systolic blood sofwxycp221 mm[Hg]Johan Taylor MD Work Phone: 1(286)[address] [place], [place] [address]07-10-2025 06:00-0400 Body vjpqik70.9 kgJohan Taylor MD Work Phone: [phone])[address]07-09-2025 12:13-0400 Body cjxnen126.96 Keyona Taylor MD Work Phone: [phone])[address]07-03-2025 12:30-0400 Body .96 Omkar Santiago PRINT LINE INSPECTOR-C Work Phone: [facility]07-03-2025 12:30-0400 Body qcnmwtrbpix26.8 [degF]Mervat Santiago PRINT LINE INSPECTOR-C Work Phone: [phone]07-03-2025 12:30-0400 Body kxnnua87.7 kgLaura Spasic PRINT LINE INSPECTOR-C Work Phone: [phone])[address] [place], [place] 7[address]707-03-2025 12:30-0400 Diastolic blood qvqlzsfy83 mm[Hg]Mervat Spasic PRINT LINE INSPECTOR-C Work Phone: [phone]07-03-2025 12:30-0400 Heart rate97 /minLaura Spasic PRINT LINE INSPECTOR-C Work Phone: 1(419)[address] [place], [place] 7856707-03-2025 12:30-0400 Respiratory rate20 /minLaura Spasic PRINT LINE INSPECTOR-C Work Phone: [phone])[address] [place], [place] 7856707-03-2025 12:30-0400 SaO2% (BldA) [Mass fraction]94 %Mervat Spasic PRINT LINE INSPECTOR-C Work Phone: [phone])[address] [place], [place] 7856707-03-2025 12:30-0400 Systolic blood ouyjxpbq446 mm[Hg]Mervat Spasic PRINT LINE INSPECTOR-C Work Phone: [phone])[address] [place], [place] 7856706-20-2025 16:00-0400 Diastolic blood ikfhkwhd09 mm[Hg]Mervat Spasic PRINT LINE INSPECTOR-C Work Phone: 1(576)[address] [place], [place] 7856706-20-2025 16:00-0400 Heart rate89 /minLaura Spasic PRINT LINE INSPECTOR-C Work Phone: [phone])[address] [place], [place] 7856706-20-2025 16:00-0400 Respiratory rate16 /minLaura Spasic PRINT LINE INSPECTOR-C Work Phone: [phone])[address] [place], [place] [address]856706-20-2025 16:00-0400 SaO2% (BldA) [Mass fraction]97 %Mervat Spasic PRINT LINE INSPECTOR-C Work Phone: 1(615)[address] [place], [place] [address]856706-20-2025 16:00-0400 Systolic blood dyhgesug647 mm[Hg]Mervat Spasic PRINT LINE INSPECTOR-C Work Phone: [phone])[address] [place] [address] Gkicih70-25-0017 11:17-0400 Body oxnlwgxtoix49.9 [degF]Mervat Spasic PRINT LINE INSPECTOR-C Work Phone: [facility]06-20-2025 05:51-0400 Body .4 kgLaura Spasic PRINT LINE INSPECTOR-C Work Phone: [facility]06-19-2025 13:33-0400 Body iurcrc627.96 cmLaura Spasic PRINT LINE INSPECTOR-C Work Phone: [facility]06-12-2025 02:20-0400 Diastolic blood eftkdvks51 mm[Hg]Mervin Iannantuono DO Work Phone: [facility]06-12-2025 02:20-0400 Heart rate86 /minGeorge Iannantuono DO Work Phone: [facility]06-12-2025 02:20-0400 Respiratory rate22 /minGeorge Iannantuono DO Work Phone: [facility]06-12-2025 02:20-0400 SaO2% (BldA) [Mass fraction]98 %Mervin Iannantuono DO Work Phone: [facility]06-12-2025 02:20-0400 Systolic blood pttpwirs18 mm[Hg]Mervin Iannantuono DO Work Phone: [facility]06-11-2025 23:35-0400 Body nowboq902.88 cmGeorge Iannantuono DO Work Phone: [facility]06-11-2025 23:35-0400 Body hzhibk84.5 kgGeorge Iannantuono DO Work Phone: [facility]06-10-2025 12:00-0400 Diastolic blood mm[Hg]Mervin Iannantuono DO Work Phone: [facility]06-10-2025 12:00-0400 Heart rate66 /minGeorge Iannantuono DO Work Phone: [facility]06-10-2025 12:00-0400 Respiratory rate16 /minGeorge Iannantuono DO Work Phone: [facility]06-10-2025 12:00-0400 SaO2% (BldA) [Mass fraction]95 %Mervin Iannantuono DO Work Phone: [facility]06-10-2025 12:00-0400 Systolic blood mm[Hg]Mervin Iannantuono DO Work Phone: [facility]06-10-2025 08:00-0400 Body lubfdyzblnh79 [degF]Mervin Iannantuono DO Work Phone: [facility]06-10-2025 06:00-0400 Body ojwkhk98.4 kgGeorge Iannantuono DO Work Phone: [phone]06-08-2025 04:00-0400 Inhaled oxygen flow rate90 L/minGeorge Iannantuono DO Work Phone: [facility]06-07-2025 15:10-0400 Body igjzvi057.96 cmGeorge Iannantuono DO Work Phone: [facility]06-06-2025 21:16-0400 Diastolic blood gpimzxqq38 mm[Hg]Mervin Iannantuono DO Work Phone: [facility]06-06-2025 21:16-0400 Heart egci887 /minGeorge Iannantuono DO Work Phone: [phone]06-06-2025 21:16-0400 Respiratory rate16 /minGeorge Iannantuono DO Work Phone: [facility]06-06-2025 21:16-0400 SaO2% (BldA) [Mass fraction]97 %Mervin Hernandezuono DO Work Phone: [facility]06-06-2025 21:16-0400 Systolic blood otuxpoul496 mm[Hg]Mervin Hernandezuono DO Work Phone: [phone]06-06-2025 17:39-0400 Inhaled oxygen flow rate93 L/minGeorge Iannantuono DO Work Phone: 1(269)571-[address] [place], [place] [address]6-06-2025 17:12-0400 Body bmoawt875.96 cmGeorge Iannantuono DO Work Phone: [phone]06-06-2025 17:12-0400 Body xypvpd38.4 kgGeorge Iannantuono DO Work Phone: 1([phone]06-06-2025 11:02-0400 Diastolic blood mm[Hg]Mervin Fernándezno DO Work Phone: [phone]([phone]06-06-2025 11:02-0400 Heart rate64 /minGeorge Iannantuono DO Work Phone: [facility]06-06-2025 11:02-0400 Respiratory rate20 /minGeorge Iannantuono DO Work Phone: [phone]06-06-2025 11:02-0400 SaO2% (BldA) [Mass fraction]95 %Mervin Hernandezuono DO Work Phone: [facility]06-06-2025 11:02-0400 Systolic blood mm[Hg]Mervin Hernandezuono DO Work Phone: [facility]06-05-2025 21:30-0400 Diastolic blood mm[Hg]Mervin Hernandezuono DO Work Phone: 1(419)557-[address] [place], [place] [address]903406-05-2025 21:30-0400 Heart rate78 /minGeorge Iannantuono DO Work Phone: 9(647)320-[address] [place], [place] [address]903406-05-2025 21:30-0400 Respiratory rate16 /minGeorge Iannantuono DO Work Phone: 3(181)946-[address] [place], [place] [address]903406-05-2025 21:30-0400 SaO2% (BldA) [Mass fraction]96 %Mervin Hernandezuono DO Work Phone: 1(814)015-[address] [place], [place] [address]903406-05-2025 21:30-0400 Systolic blood vsuunuva375 mm[Hg]Mervin Hernandezuono DO Work Phone: 1(287)767-[address] [place], [place] [address]903406-05-2025 17:13-0400 Body pevhngnftsj31.1 [degF]Mervin Fernándezno DO Work Phone: 1(875)771-[address] [place], [place] [address]903406-05-2025 17:12-0400 Body ksuhot716.96 cmGeorge Maryuono DO Work Phone: 7(779)582-[address] [place], [place] [address]903406-05-2025 17:12-0400 Body jvoobf17 kgGeorge Maryuono DO Work Phone: 5(080)420-[address] [place], [place] 7903410-31-2024 16:00-0400 Diastolic blood mjwfftzi29 mm[Hg]PHYSICIAN NO [facility]10-31-2024 16:00-0400Heart rate85 /minPHYSICIAN [facility]10-31-2024 16:00-0400Respiratory rate15 /minPHYSICIAN [facility]10-31-2024 16:00-3643GxA3% (BldA) [Mass fraction]100 %PHYSICIAN [facility]10-31-2024 16:00-0400Systolic blood nxtafkgp071 mm[Hg]PHYSICIAN NO [facility]10-31-2024 13:46-0400Body chuutw730.96 cmPHYSICIAN [facility]10-31-2024 13:46-0400Body ikaiqe539.05 kg PHYSICIAN [facility]08-27-2024 10:52-0400Body wczvys662.96 cmPHYSICIAN [facility]08-27-2024 10:52-0400Body mass index (BMI) [Ratio]29.9 kg/x3KOKECNQXK [facility]08-27-2024 10:52-0400Body glisuumnsxq63.8 [degF]PHYSICIAN [facility]08-27-2024 10:52-0400Body ebbuzv630 kgPHYSICIAN [facility]08-27-2024 10:52-0400 Diastolic blood mm[Hg]PHYSICIAN [facility]08-27-2024 10:52-0400Heart rate68 /minPHYSICIAN [facility]08-27-2024 10:52-0400Respiratory rate16 /minPHYSICIAN [facility]08-27-2024 10:52-1591KkW9% (BldA) [Mass fraction]96 %PHYSICIAN [facility]08-27-2024 10:52-0400Systolic blood iyewuksx123 mm[Hg]PHYSICIAN [facility]08-06-2024 10:12-0400Body .96 cmPHYSICIAN [facility]08-06-2024 10:12-0400Body mass index (BMI) [Ratio]30.2 kg/x3KGHMCBVDI [facility]08-06-2024 10:12-0400Body mgfyna395.59 kgPHYSICIAN [facility]08-06-2024 10:12-0400Diastolic blood ybvysgrs70 mm[Hg]PHYSICIAN [facility]08-06-2024 10:12-0400Systolic blood gzkoeujv018 mm[Hg]PHYSICIAN [facility]07-23-2024 14:51-0400 Diastolic blood evrojgcm66 mm[Hg]PHYSICIAN [facility]07-23-2024 14:51-0400Heart rate83 /minPHYSICIAN [facility]07-23-2024 14:51-0400Respiratory rate14 /minPHYSICIAN [facility]07-23-2024 14:51-9667NmO6% (BldA) [Mass fraction]98 %PHYSICIAN NO [facility]07-23-2024 14:51-0400Systolic blood mm[Hg]PHYSICIAN NO [facility]07-23-2024 13:21-0400Body iiyhvl522.96 cmPHYSICIAN [facility]07-23-2024 13:21-0400Body ohtzcp569.05 kg PHYSICIAN [facility]07-16-2024 09:49-0400Body zvlroc622.96 cmPHYSICIAN [facility]07-16-2024 09:49-0400Body mass index (BMI) [Ratio]29.7 kg/i5IAIJTKACC [facility]07-16-2024 09:49-0400Body fjotlgxwseu87.2 [degF]PHYSICIAN [facility]07-16-2024 09:49-0400Body kgPHYSICIAN [facility]07-16-2024 09:49-0400 Diastolic blood mbxjyiop90 mm[Hg]PHYSICIAN [facility]07-16-2024 09:49-0400Heart rate68 /minPHYSICIAN [facility]07-16-2024 09:49-0400Respiratory rate16 /minPHYSICIAN [facility]07-16-2024 09:49-2127MtD5% (BldA) [Mass fraction]98 %PHYSICIAN [facility]07-16-2024 09:49-0400Systolic blood jigduuyu095 mm[Hg]PHYSICIAN [facility]06-04-2024 11:36-0400Body uavofs075.96 [employer] Work Phone: 6(665)611-[address] [place], [place] [address]06-04-2024 11:36-0400 Body mass index (BMI) [Ratio]29.7 kg/i7Xtaignqo [employer] Work Phone: [phone]06-04-2024 11:36-0400 Body ahhswuqqeqy25.6 [degF]Services [employer] Work Phone: [phone]06-04-2024 11:36-0400 Body cydurn883 [facility] [employer] Work Phone: [phone]06-04-2024 11:36-0400 Diastolic blood beekcghw62 mm[Hg]Services [employer] Work Phone: [phone]06-04-2024 11:36-0400 Heart rate68 /[employer] Work Phone: [phone]06-04-2024 11:36-0400 Respiratory rate16 /[employer] Work Phone: [phone]06-04-2024 11:36-0400 SaO2% (BldA) [Mass fraction]98 %Services [employer] Work Phone: [phone] [address] Street06-04-2024 11:36-0400 Systolic blood xqhxrilu519 mm[Hg]Services [employer] Work Phone: 1(980)84338 [address]04-30-2024 15:00-0400 Diastolic blood hipzxhwj47 mm[Hg]Services [employer] Work Phone: 1(967)88738 [address]04-30-2024 15:00-0400 Heart rate82 /[employer] Work Phone: 1(143)834-[address] [place], [place] 7081904-30-2024 15:00-0400 Respiratory rate16 /[employer] Work Phone: 1(149)89738 [address]04-30-2024 15:00-0400 SaO2% (BldA) [Mass fraction]94 %Services [employer] Work Phone: 1(961)06538 [address]04-30-2024 15:00-0400 Systolic blood avoggnly028 mm[Hg]Services [employer] Phone: 1(496)914-[address] [place], [place] [address]081904-30-2024 13:50-0400 Inhaled oxygen flow rate2 L/[facility] [employer] Phone: 1(155)97738 [address]04-30-2024 11:54-0400 Body orjnij881.96 [facility] Phone: 1(014)734-[address] [place], [place] 7081904-30-2024 11:54-0400 Body twufdp158.23 [facility] [employer] Phone: 1(836)63138 [address]04-30-2024 10:15-0400 Body rcyrfv520.96 [facility] Phone: 1(069)53238 [address]04-30-2024 10:15-0400 Body mass index (BMI) [Ratio]29.7 kg/v1Rldrjasw [employer] Phone: 1(593)330-[address] [place], [place] 7081904-30-2024 10:15-0400 Body rmyuofuyhow30.6 [degF]Services [employer] Phone: 1(358)56538 [address]04-30-2024 10:15-0400 Body .23 [facility] [employer] Phone: 1(743)05038 [address]04-30-2024 10:15-0400 Diastolic blood nuwcffro87 mm[Hg]Services [employer] Phone: 1(301)282-[address] [place], [place] [address]081904-30-2024 10:15-0400 Heart rate74 /[facility] center[facility] Phone: 1(103)734-[address] [place], [place] 7081904-30-2024 10:15-0400 SaO2% (BldA) [Mass fraction]97 %Services [employer] Phone: 1(599)339-[address] [place], [place] [address]081904-30-2024 10:15-0400 Systolic blood jpcbhpat479 mm[Hg]Services [employer] Phone: 1(177)288-[address] [place], [place] 7081904-16-2024 11:37-0400 Body xphveq002.96 [employer] Phone: 1(649)992-[address] [place], [place] [address]081904-16-2024 11:37-0400 Body mass index (BMI) [Ratio]30.2 kg/b5Vldcweji [employer] Work Phone: 1(143)99438 [address]04-16-2024 11:37-0400 Body nwwschoxewi37.6 [degF]Services [employer] Work Phone: 1(947)65338 [address]04-16-2024 11:37-0400 Body .59 [facility] [employer] Work Phone: 1(959)52438 [address]04-16-2024 11:37-0400 Diastolic blood qpphheex86 mm[Hg][facility] [employer] Work Phone: 1(716)87638 [address]04-16-2024 11:37-0400 Heart rate80 /[employer] Work Phone: 1(708)70738 [address]04-16-2024 11:37-0400 Respiratory rate16 /[employer] Work Phone: 1(010)51838 [address]04-16-2024 11:37-0400 SaO2% (BldA) [Mass fraction]98 %Services [employer] Work Phone: 1(263)75538 [address]04-16-2024 11:37-0400 Systolic blood nehchsde832 mm[Hg]Services [employer] Work Phone: 1(076)31238 [address]04-16-2024 11:13-0400 Body pzkhzuivccx12 [degF]Services [employer] Work Phone: 1(427)[address]04-16-2024 11:13-0400 Diastolic blood ukrzjjsx27 mm[Hg]Services [employer] Work Phone: 1(183)093-[address] [place], [place] [address]081904-16-2024 11:13-0400 Heart rate79 /[employer] Work Phone: 1(576)45438 [address]04-16-2024 11:13-0400 Respiratory rate18 /[employer] Work Phone: 1(419)[address] [place], [place] 7856704-16-2024 11:13-0400 SaO2% (BldA) [Mass fraction]99 %Services [facility] Work Phone: 1419)[address] [place], [place] 7856704-16-2024 11:13-0400 Systolic blood xqxbdewz342 mm[Hg]Services [facility] Work Phone: 1419)[address] [place], [place] 7856704-04-2024 16:52-0400 Body ohezcnmydve33.1 [degF][employer] Mervat Spasic Work Phone: 1(419)[address] [place], [place] 7856704-04-2024 16:52-0400 Diastolic blood exdvvjsc94 mm[Hg][employer] INS[employer] Mervat Spasic Work Phone: 1(419)[address] [place], [place] 7856704-04-2024 16:52-0400 Heart rate83 /minNP-C Mervat Spasic Work Phone: 1419)[address] [place], [place] 7856704-04-2024 16:52-0400 Respiratory rate18 /minNP-C Mervat Spasic Work Phone: 1(419)[address] [place], [place] 7856704-04-2024 16:52-0400 SaO2% (BldA) [Mass fraction]95 %[employer] INS[employer] Mervat Spasic Work Phone: 1(317)[address] [place], [place] 7856704-04-2024 16:52-0400 Systolic blood mm[Hg][employer] INSPECTOR[employer] Mervat Spasic Work Phone: 1(404)[address] [place], [place] 7856703-28-2024 09:30-0400 Diastolic blood tyilguno33 mm[Hg][employer] INS[employer] Mervat Sp[employer] Work Phone: 1(419)[address] [place], [place] 7856703-28-2024 09:30-0400 Heart rate79 /minNP-C Mervat Spasic Work Phone: 1419)[address] [place], [place] 7856703-28-2024 09:30-0400 Respiratory rate14 /minNP-C Mervat Spasic Work Phone: 1(272)[address] [place], [place] 7856703-28-2024 09:30-0400 SaO2% (BldA) [Mass fraction]95 %[employer] INSPECT[employer] Mervat Spasic Work Phone: 1(978)[address] [place], [place] 7856703-28-2024 09:30-0400 Systolic blood empvcbfs269 mm[Hg][employer] INSPECTOR[employer] Mervat Spasic Work Phone: 1(976)[address] [place], [place] 7856703-28-2024 08:18-0400 Body ccoxix421.96 cmNP-C Mervat Spasic Work Phone: 1(648)[address] [place], [place] 7856703-28-2024 08:18-0400 Body ovqqou670.59 kgNP-C Mervat Spasic Work Phone: 1(907)[address] [place], [place] 7856703-19-2024 11:20-0400 Body vdrtsi593.88 cmNP-C Mervat Spasic Work Phone: 1(850)[address] [place], [place] 7856703-19-2024 11:20-0400 Body mass index (BMI) [Ratio]31.8 kg/m2NP-C Mervat Spasic Work Phone: 1(820)[address] [place], [place] 7856703-19-2024 11:20-0400 Body jpizegyaapr66.6 [degF][employer] INSPECTOR-[employer] Mervat Spasic Work Phone: 1(063)[address] [place], [place] 7856703-19-2024 11:20-0400 Body .59 kgNP-C Mervat Spasic Work Phone: 1(014)[address] [place], [place] 7856703-19-2024 11:20-0400 Diastolic blood zyckybrs32 mm[Hg][employer] INSPECTOR[employer] Mervat Spasic Work Phone: 1(172)[address] [place], [place] 7856703-19-2024 11:20-0400 Heart rate88 /minNP-C Mervat Spasic Work Phone: 1(149)[address] [place], [place] 7856703-19-2024 11:20-0400 Respiratory rate16 /minNP-C Mervat Spasic Work Phone: 1(158)[address] [place], [place] 7856703-19-2024 11:20-0400 SaO2% (BldA) [Mass fraction]98 %[employer] INSPECTOR-C Mervat Spasic Work Phone: [facility]03-19-2024 11:20-0400 Systolic blood gfqgxikg350 mm[Hg][employer] INSPECTOR-C Mervat Spasic Work Phone: [facility]02-01-2024 10:15-0500 Body .88 cmMasherron Mauricio Other [facility]02-01-2024 10:15-0500 Body mass index (BMI) [Ratio]33.22 kg/x2Hwwkbetsherron Mauricio Other [employer] Other 02-01-2024 10:15-0500Body lscxqycxoni02.6 [degF] Master Mauricio Other [facility] [employer] Other 02-01-2024 10:15-0500Body .13 kgMattkenrick Mauricio Other [facility]02-01-2024 10:15-0500 Diastolic blood tfzoxdqs87 mm[Hg]Master Mauricio Other [facility]02-01-2024 10:15-0500 SaO2% (BldA) [Mass fraction]97 %Master Mauricio Other [facility] [employer] Other 02-01-2024 10:15-0500Systolic blood vjputpxi806 mm[Hg] Master Mauricio Other [facility]01-10-2024 13:15-0500 Diastolic blood mm[Hg]TYSON Maddie Dixon Work Phone: [facility]01-10-2024 13:15-0500 Heart rate82 /minAPRN Maddie Dixon Work Phone: [address] [place], [place] 1098901-10-2024 13:15-0500 Respiratory rate16 /minTYSON Dixon Work Phone: [facility]01-10-2024 13:15-0500 SaO2% (BldA) [Mass fraction]100 %TYSON Dixon Work Phone: [facility]01-10-2024 13:15-0500 Systolic blood mbffklse435 mm[Hg]TYSON Dixon Work Phone: [facility]01-10-2024 11:00-0500 Inhaled oxygen flow rate6 L/minTYSON Dixon Work Phone: 1(159)298-[address] [place], [place] 5510901-10-2024 09:33-0500 Body mass index (BMI) [Ratio]30.2 kg/m2TYSON Dixon Work Phone: [facility]01-10-2024 08:57-0500 Body awilmk625.96 cmAPRChristina Dixon Work Phone: [facility]01-10-2024 08:57-0500 Body .59 kgTYSON Dixon Work Phone: [facility]01-10-2024 07:54-0500 Body wzikwzmtxbs25.7 [degF]TYSON Dixon Work Phone: [facility]12-05-2023 10:00-0500 Body bjoram911.88 cmFawad Rocha Other [facility]12-05-2023 10:00-0500 Body mass index (BMI) [Ratio]33.22 kg/s8SmccxzcFawad Rocha Other [facility] [employer] Other 12-05-2023 10:00-0500Body ycidbktirrn49.7 [degF] Fawad Rocha Other [facility] [employer] Other 12-05-2023 10:00-0500Body .13 kgJevera Rocha Other [facility]12-05-2023 10:00-0500 Diastolic blood ohwxvwpv88 mm[Hg]Fawad Rocha Other [facility]12-05-2023 10:00-0500 SaO2% (BldA) [Mass fraction]98 %Fawad Rocha Other [facility] [employer] Other 12-05-2023 10:00-0500Systolic blood qyhazhkb510 mm[Hg] Fawad Rocha Other [facility]11-09-2023 14:00-0500 Body xmqrwi736.88 Keyona Taylor Other [facility] [employer] Other [id number] 14:00-0500Body ekvogfntfir46.8 [degF]Johan Taylor Other [facility] [employer] Other 11-09-2023 14:00-0500Diastolic blood xulqinbn52 mm[Hg] Johan Taylor Other [facility] [employer] Other 11-09-2023 14:00-0500Respiratory rate18 /minEdevon Taylor Other [facility] Other 11-09-2023 14:00-2725KiZ6% (BldA) [Mass fraction]99 % Johan Taylor Other [place] [employer] Other 11-09-2023 14:00-0500Systolic blood jgknuxjo047 mm[Hg] Johan Taylor Other [facility] [employer] Other [id number] 13:19-0400Body aspuex546.96 cmNP-C Mervat Spasic Work Phone: 1(964)20038 [address]10-13-2023 13:19-0400 Body eqvbqsqyyvp46.9 [degF][employer] INSPECTOR-C Mervat Spasic Work Phone: 1(709)8[address]10-13-2023 13:19-0400 Body bcuchb089.8 kgNP-C Mervat Spasic Work Phone: 1(543)08238 [address]10-13-2023 13:19-0400 Diastolic blood jfaeuznz44 mm[Hg][employer] INS[employer] Mervat Spasic Work Phone: 1(932)04938 [address]10-13-2023 13:19-0400 Heart rate88 /minNP-C Mervat Spasic Work Phone: 1(112)11538 [address]10-13-2023 13:19-0400 Respiratory rate18 /minNP-C Mervat Spasic Work Phone: 1(608)[address]10-13-2023 13:19-0400 SaO2% (BldA) [Mass fraction]98 %[employer] INS[employer] Mervat Sp[employer] Work Phone: 1(423)80938 [address]10-13-2023 13:19-0400 Systolic blood sikewopx850 mm[Hg][employer] INS[employer]OR[employer] Mervat Spasic Work Phone: 1(794)11438 [address]09-14-2023 15:15-0400 Blood Pressure LocationKathy Lue [facility]09-14-2023 15:15-0400Diastolic blood bfmimxbe59 mm[Hg]Kiko Lue [facility]09-14-2023 15:15-0400Heart rate86 /minKathy Lue [facility]09-14-2023 15:15-0400Systolic blood grinjgau827 mm[Hg]Kiko Corbett [facility]09-07-2023 15:00-0400Body wnexhc755.88 cmEdevon Taylor Other [employer] Other 09-07-2023 15:00-0400Body wnqifqdbxwq66.2 [degF]Johan Taylor Other [employer] Other 09-07-2023 15:00-0400Diastolic blood owgawycy29 mm[Hg] Johan Taylor Other [employer] Other 09-07-2023 15:00-0400Respiratory rate18 /minEdevon Taylor Other [employer] Other 09-07-2023 15:00-7487EzR3% (BldA) [Mass fraction]99 % Johan Taylor Other [employer] Other 09-07-2023 15:00-0400Systolic blood rkrtfnlu652 mm[Hg] Johan Taylor Other [employer] Other 08-03-2023 14:30-0400Body .88 cmMichael Blank Other [employer] Other 08-03-2023 14:30-0400Body mass index (BMI) [Ratio] 32.55 kg/a8Ihwcfuz Blank Other [employer] Other 08-03-2023 14:30-0400Body ukvigvzzvii66.7 [degF] Riya Pitt Other [facility] [employer] Other 08-03-2023 14:30-0400Body .86 kgMichaecorrine Pitt Other [facility] [employer] Other 08-03-2023 14:30-0400Diastolic blood mm[Hg] Riya Pitt Other [facility] [employer] Other 08-03-2023 14:30-0400Systolic blood weahlmqv160 mm[Hg] Riya Pitt Other [facility] [employer] Other 07-20-2023 14:23-0400Body mgnrhrplemn58.6 [degF]DO Maye Bunting Work Phone: 1(952)054-87[facility]07-20-2023 14:23-0400 Diastolic blood llewqebf01 mm[Hg]DO Maye Bunting Work Phone: 1(014)832-[address] [place], [place] 2177107-20-2023 14:23-0400 Heart rate83 /minDO Maye Bunting Work Phone: 3(141)85136 [address]07-20-2023 14:23-0400 Respiratory rate18 /minDO Maye Bunting Work Phone: 1(601)957-02[facility]07-20-2023 14:23-0400 SaO2% (BldA) [Mass fraction]97 %DO Maye Bunting Work Phone: 8(210)310-24[facility]07-20-2023 14:23-0400 Systolic blood dyampigv943 mm[Hg]DO Maye Bunting Work Phone: [facility]07-20-2023 06:00-0400 Body sykeri962.9 kgDO Maye Bunting Work Phone: 1(419)[address] [place], [place] 2121907-19-2023 14:10-0400 Body .96 cmDO Maye Bunting Work Phone: 1(702)[address] [place], [place] 2121907-18-2023 21:17-0400 Body geavztxcvrb60.4 [degF]DO Maye Bunting Work Phone: 1(031)[address] [place], [place] 2121907-18-2023 21:17-0400 Diastolic blood cgonwpfl39 mm[Hg]DO Maye Bunting Work Phone: 1(822)[address] [place], [place] 2121907-18-2023 21:17-0400 Systolic blood mm[Hg]DO Maye Bunting Work Phone: 1(923)[address] [place], [place] 2121907-18-2023 21:14-0400 Heart rate95 /minDO Maye Bunting Work Phone: 1(025)[address] [place], [place] 2121907-18-2023 21:14-0400 Respiratory rate20 /minDO Maye Bunting Work Phone: 1(925)[address] [place], [place] 2121907-18-2023 21:14-0400 SaO2% (BldA) [Mass fraction]98 %DO Maye Bunting Work Phone: 1(196)[address] [place], [place] 2121907-18-2023 15:41-0400 Body .96 cmDO Maye Bunting Work Phone: 1(031)[address] [place], [place] 2121907-18-2023 15:41-0400 Body rejakg941.86 kgDO Maye Bunting Work Phone: 1(982)[address] [place], [place] 2121907-17-2023 12:47-0400 Body ycpobe304.96 cmDO Maye Bunting Work Phone: 4(460)[address]07-17-2023 12:47-0400 Body bkapju470.86 kgDO Maye Bunting Work Phone: 7(520)[address]07-17-2023 12:46-0400 Body ffarrzyexlw96 [degF]DO Maye Bunting Work Phone: 1(419)[address]36 [address]07-17-2023 12:46-0400 Diastolic blood mwsjqyxd12 mm[Hg]DO Maye Bunting Work Phone: 1(814)[address] [place], [place] 2121907-17-2023 12:46-0400 Heart rate98 /minDO Maye Bunting Work Phone: 1(810)[address] [place], [place] 2121907-17-2023 12:46-0400 Respiratory rate18 /minDO Maye Bunting Work Phone: 1(032)[address] [place], [place] 2121907-17-2023 12:46-0400 SaO2% (BldA) [Mass fraction]98 %DO Maye Bunting Work Phone: 1(676)[address] [place], [place] 2121907-17-2023 12:46-0400 Systolic blood nlspijml294 mm[Hg]DO Maye Bunting Work Phone: 1(607)[address] [place], [place] 2121907-11-2023 11:07-0400 Body .96 cmDO Maye Bunting Work Phone: 1(915)[address] [place], [place] 2121907-11-2023 11:07-0400 Body melqlriyiff99.2 [degF]DO Maye Bunting Work Phone: 1(457)[address] [place], [place] 2121907-11-2023 11:07-0400 Body ikdarg069.59 kgDO Maye Bunting Work Phone: 1(172)[address] [place], [place] 2121907-11-2023 11:07-0400 Diastolic blood xyofijds25 mm[Hg]DO Maye Bunting Work Phone: 1(868)[address] [place], [place] 2121907-11-2023 11:07-0400 Heart rate96 /minDO Maye Bunting Work Phone: 1(271)[address] [place], [place] 2121907-11-2023 11:07-0400 Respiratory rate18 /minDO Maye Bunting Work Phone: 1(861)[address] [place], [place] 2121907-11-2023 11:07-0400 SaO2% (BldA) [Mass fraction]100 %DO Maye Bunting Work Phone: 1(795)890-92[facility]07-11-2023 11:07-0400 Systolic blood jwarjdme269 mm[Hg]DO Maye Bunting Work Phone: 1(109)[address]07-09-2023 12:00-0400 Diastolic blood jojjcoob37 mm[Hg]DO Maye Bunting Work Phone: 1(761)[address]07-09-2023 12:00-0400 Heart rate97 /minDO Maye Bunting Work Phone: 1(386)[address]07-09-2023 12:00-0400 Respiratory rate20 /minDO Maye Bunting Work Phone: 1(803)[address] [place], [place] 2121907-09-2023 12:00-0400 SaO2% (BldA) [Mass fraction]97 %DO Maye Bunting Work Phone: 1(591)[address]07-09-2023 12:00-0400 Systolic blood lcamfvyr408 mm[Hg]DO Maye Bunting Work Phone: 1(501)[address] [place], [place] 2121907-09-2023 09:24-0400 Body uieidyhlquj70.5 [degF]DO Maye Bunting Work Phone: 1(969)06036 [address]07-09-2023 09:23-0400 Body xheisv632.96 cmDO Maye Bunting Work Phone: 1(827)[address]07-09-2023 09:23-0400 Body zrdoqn009.59 kgDO Maye Bunting Work Phone: 1(365)[address]06-08-2023 11:17-0400 Body hgyuplhnsac93.7 [degF]DO Maye Bunting Work Phone: 1(757)[address]06-08-2023 11:17-0400 Diastolic blood slkdewze39 mm[Hg]DO Maye Bunting Work Phone: 1(756)4-[address] [place], [place] 2177106-08-2023 11:17-0400 Heart rate84 /minDO Maye Bunting Work Phone: 1(298)[address] [place], [place] 2121906-08-2023 11:17-0400 Respiratory rate16 /minDO Maye Bunting Work Phone: 1(279)[address] [place], [place] 2121906-08-2023 11:17-0400 SaO2% (BldA) [Mass fraction]99 %DO Maye Bunting Work Phone: 1(180)[address] [place], [place] 2121906-08-2023 11:17-0400 Systolic blood lhxagjkr243 mm[Hg]DO Maye Bunting Work Phone: 1(230)[address] [place], [place] 2121906-08-2023 05:19-0400 Body dajcnv421.6 kgDO Myae Bunting Work Phone: 1(581)[address] [place], [place] 2121906-07-2023 11:45-0400 Body zwwqie170.96 cmDO Maye Bunting Work Phone: 1(759)[address] [place], [place] 2121906-06-2023 16:20-0400 Body ybqhcqgxewt11.5 [degF]DO Maye Bunting Work Phone: 1(700)[address] [place], [place] 2121906-06-2023 16:20-0400 Diastolic blood kdmdnoet14 mm[Hg]DO Maye Bunting Work Phone: 1(862)[address] [place], [place] 2121906-06-2023 16:20-0400 Heart rate95 /minDO Maye Bunting Work Phone: 1(471)[address] [place], [place] 2121906-06-2023 16:20-0400 Respiratory rate16 /minDO Maye Bunting Work Phone: 1(346)[address] [place], [place] 2121906-06-2023 16:20-0400 SaO2% (BldA) [Mass fraction]100 %DO Maye Bunting Work Phone: 1(566)[address] [place], [place] 2121906-06-2023 16:20-0400 Systolic blood aulcehnz835 mm[Hg]DO Maye Bunting Work Phone: 1(079)[address] [place], [place] 2121906-06-2023 10:26-0400 Body rpsezf692.96 cmDO Maye Bunting Work Phone: 1(744)[address] [place], [place] 2121906-06-2023 10:26-0400 Body lytzpn424.32 kgDO Maye Bunting Work Phone: 1(798)[address] [place], [place] 2121905-27-2023 07:57-0400 Body rjzgbjrsjpa57.1 [degF]DO Maye Bunting Work Phone: 1(114)[address] [place], [place] 2121905-27-2023 07:57-0400 Diastolic blood anpyymrf13 mm[Hg]DO Maye Bunting Work Phone: 1(151)[address] [place], [place] 2121905-27-2023 07:57-0400 Heart rate75 /minDO Maye Bunting Work Phone: 1(341)[address] [place], [place] 2121905-27-2023 07:57-0400 Respiratory rate17 /minDO Maye Bunting Work Phone: 1(147)[address] [place], [place] 2121905-27-2023 07:57-0400 SaO2% (BldA) [Mass fraction]99 %DO Maye Bunting Work Phone: 1(713)[address] [place], [place] 2121905-27-2023 07:57-0400 Systolic blood tlucelzp707 mm[Hg]DO Maye Bunting Work Phone: 1(047)[address] [place], [place] 2121905-27-2023 06:34-0400 Body ymjwih76.5 kgDO Maye Bunting Work Phone: 1(445)[address] [place], [place] 2121905-26-2023 10:30-0400 Body hjdsec714.96 cmDO Maye Bunting Work Phone: 1(817)[address] [place], [place] 2121905-23-2023 15:38-0400 Diastolic blood awitplwc437 mm[Hg]DO Maye Bunting Work Phone: 1(237)[address]05-23-2023 15:38-0400 Heart rate90 /minDO Maye Bunting Work Phone: 1(419)[address] [place], [place] 2121905-23-2023 15:38-0400 Respiratory rate18 /minDO Maye Bunting Work Phone: 1(825)[address] [place], [place] 2121905-23-2023 15:38-0400 SaO2% (BldA) [Mass fraction]98 %DO Maye Bunting Work Phone: 1(198)[address] [place], [place] 2121905-23-2023 15:38-0400 Systolic blood vjoncqjn664 mm[Hg]DO Maye Bunting Work Phone: 1(009)[address] [place], [place] 2121905-23-2023 12:34-0400 Body nlcejs224.96 cmDO Maye Bunting Work Phone: 1(553)[address] [place], [place] 2121905-23-2023 12:34-0400 Body bukdifatpie18.5 [degF]DO Maye Bunting Work Phone: 1(302)[address] [place], [place] 2121905-23-2023 12:34-0400 Body uesjzi061.59 kgDO Maye Bunting Work Phone: 1(763)[address] [place], [place] 2121905-05-2023 14:50-0400 Body hhcqtnumtjp16.9 [degF]DO Maye Bunting Work Phone: 1(910)[address] [place], [place] 2121905-05-2023 14:50-0400 Diastolic blood uecxljgs01 mm[Hg]DO Maye Bunting Work Phone: 1(581)[address] [place], [place] 2121905-05-2023 14:50-0400 Heart rate94 /minDO Maye Bunting Work Phone: 1(672)[address]05-05-2023 14:50-0400 Respiratory rate18 /minDO Maye Bunting Work Phone: 1(969)[address] [place], [place] 2177105-05-2023 14:50-0400 SaO2% (BldA) [Mass fraction]94 %DO Maye Bunting Work Phone: 1(586)[address] [place] 2121905-05-2023 14:50-0400 Systolic blood tmykgxpw601 mm[Hg]DO Maye Bunting Work Phone: 1(377)16036 [address]04-14-2023 13:16-0400 Body upslyadljzp33.7 [degF]DO Maye Bunting Work Phone: 1(182)[address] [place], [place] 2121904-14-2023 13:16-0400 Diastolic blood enfhutbf15 mm[Hg]DO Maye Bunting Work Phone: 1(510)[address] [place], [place] 2121904-14-2023 13:16-0400 Heart rate94 /minDO Maye Bunting Work Phone: 1(619)[address] [place], [place] 2121904-14-2023 13:16-0400 Respiratory rate20 /minDO Maye Bunting Work Phone: 1(703)[address] [place], [place] 2121904-14-2023 13:16-0400 SaO2% (BldA) [Mass fraction]97 %DO Maye Bunting Work Phone: 1(969)[address] [place], [place] 2121904-14-2023 13:16-0400 Systolic blood hjaaoyup175 mm[Hg]DO Maye Bunting Work Phone: 1(823)[address] [place], [place] 2121904-12-2023 09:06-0400 Diastolic blood puyidmng24 mm[Hg]DO Maye Bunting Work Phone: 1(082)[address]04-12-2023 09:06-0400 Heart yzgr122 /minDO Maye Bunting Work Phone: 1(357)[address]04-12-2023 09:06-0400 Respiratory rate18 /minDO Maye Bunting Work Phone: 1(884)[address] [place], [place] 2121904-12-2023 09:06-0400 SaO2% (BldA) [Mass fraction]100 %DO Maye Bunting Work Phone: 1(904)[address]04-12-2023 09:06-0400 Systolic blood azvyaxhg795 mm[Hg]DO Maye Bunting Work Phone: 1(069)[address]04-12-2023 07:08-0400 Body vxkvoldmuqd07.2 [degF]DO Maye Bunting Work Phone: [facility]04-11-2023 21:11-0400 Body iwyajw514.96 cmDO Maye Bunting Work Phone: [facility]04-11-2023 21:11-0400 Body fxurmm035.5 kgDO Maye Bunting Work Phone: [facility]03-03-2023 08:39-0500 Blood Pressure LocationKathy Lue [facility]-03-2023 08:39-0500Diastolic blood hjqwbdpu90 mm[Hg]Kiko Lue [facility]03-03-2023 08:39-0500Heart rate84 /minKathy Lue [facility]03-03-2023 08:39-0500Systolic blood vhgojyld812 mm[Hg]Kiko Lue [facility]01-20-2023 08:13-0500Blood Pressure LocationKathy Lue [facility]01-20-2023 08:13-0500Diastolic blood lqeqbdmh89 mm[Hg]Kiko Lue [facility]01-20-2023 08:13-0500Heart rate71 /minKathy Lue [facility]01-20-2023 08:13-0500Systolic blood mm[Hg]Kiko Lue [facility] [facility]01-16-2023 09:59-0500Body bxqyvnmbcbh31.8 [degF]DO Maye Bunting Work Phone: 1(342)707-[address] [place], [place] 2177101-16-2023 09:59-0500 Diastolic blood eubrcsgo94 mm[Hg]DO Maye Bunting Work Phone: 1(148)[address]01-16-2023 09:59-0500 Heart rate88 /minDO Maye Bunting Work Phone: 1(776)[address]01-16-2023 09:59-0500 Respiratory rate16 /minDO Maye Bunting Work Phone: 1(175)[address]01-16-2023 09:59-0500 SaO2% (BldA) [Mass fraction]98 %DO Maye Bunting Work Phone: 1(175)[address]01-16-2023 09:59-0500 Systolic blood ovpyzcyr611 mm[Hg]DO Maye Bunting Work Phone: 1(601)506[address]01-03-2023 15:23-0500 Diastolic blood mm[Hg]DO Maye Bunting Work Phone: 1(327)529-[address] [place], [place] 2177101-03-2023 15:23-0500 Heart rate98 /minDO Maye Bunting Work Phone: 1(884)707-[address] [place], [place] 2177101-03-2023 15:23-0500 Respiratory rate16 /minDO Maye Bunting Work Phone: 1(481)952-[address] [place], [place] 2177101-03-2023 15:23-0500 SaO2% (BldA) [Mass fraction]98 %DO Maye Bunting Work Phone: 1(771)731-[address] [place], [place] 2177101-03-2023 15:23-0500 Systolic blood ashyweow256 mm[Hg]DO Maye Bunting Work Phone: 1(690)401-[address] [place], [place] 2177101-03-2023 14:53-0500 Inhaled oxygen flow rate6 L/minDO Maye Bunting Work Phone: 1(644)1-[address] [place], [place] 2177101-03-2023 13:33-0500 Body boqjmh954.96 cmDO Maye Bunting Work Phone: 1(850)[address] [place], [place] 2121901-03-2023 13:33-0500 Body mass index (BMI) [Ratio]30.8 kg/m2DO Maye Bunting Work Phone: 9(517)6-[address] [place], [place] 2177101-03-2023 13:33-0500 Body xckebq473.86 kgDO Maye Bunting Work Phone: 1(473)[address] [place], [place] 2121901-03-2023 12:15-0500 Body idcjtrqcsve81.7 [degF]DO Maye Bunting Work Phone: 1(316)[address] [place], [place] 2121911-29-2022 13:35-0500 Diastolic blood kecxuhxe62 mm[Hg]DO Maye Bunting Work Phone: 1(359)[address] [place], [place] 2121911-29-2022 13:35-0500 Heart rate94 /minDO Maye Bunting Work Phone: 1(304)[address] [place], [place] 2121911-29-2022 13:35-0500 Systolic blood egjxrqwd138 mm[Hg]DO Maye Bunting Work Phone: 6(601)[address] [place], [place] 2121911-29-2022 13:23-0500 65 1Darrin R Bunting Work Phone: 1(389) [phone]-Krsjl [facility] 250 DO Work Phone: Comment on above:[id number] 09:14-516146 1 Maye R Bunting Work Phone: 1(726) [phone]-Mgqnc [facility] 250 DO Work Phone: Comment on above:[id number] 11:26-0500 Diastolic blood yvggisjn74 mm[Hg]Maye R Bunting Work Phone: 1(854) [phone]-Mehdf [facility] 250 DO Work Phone: 1(136) 560-594411-17-2022 11:26-0500Systolic blood twcdoixq174 mm[Hg] Maye R Bunting Work Phone: mp609-1565XN-YcpjhJose [place] [address] DO Work Phone: 1(880) 945-644211-17-2022 10:53-0500Body rybild081.96 cmDarrin R Bunting Work Phone: mp147-3317IH-PlqtdJose [place] [address] DO Work Phone: 1(600) 119-591711-17-2022 10:53-0500Body mass index (BMI) [Ratio] Patient Reason Not DoneDarrin R Bunting Work Phone: mp029-3132AW-MwawgJose [place] [address] DO Work Phone: 1(831) 572-172511-17-2022 10:53-0500Diastolic blood wohebvri71 mm[Hg] Maye R Bunting Work Phone: mp647-9133RP-AqmudJose [place] [address] DO Work Phone: 1(966) 906-648811-17-2022 10:53-0500Diastolic blood bkbwfvri96 mm[Hg] Maye R Bunting Work Phone: mp388-9934KD-WzfhzJose [place] [address] DO Work Phone: 1(403) 847-709611-17-2022 10:53-0500Heart rate90 /minDarrin R Bunting Work Phone: mp810-2496UX-XtrxbJose [place] [address] DO Work Phone: 1(786) 692-591111-17-2022 10:53-0500Systolic blood mwycbgen809 mm[Hg] Maye R Bunting Work Phone: mp817-8542ND-PewbtJose [place] [address] DO Work Phone: 1(229) 674-359410-27-2022 14:20-0400Body hyafey404.88 cmEdevon Taylor Other [place] [employer] Other 10-27-2022 14:20-0400Body oaxfiipcjha44 [degF]Johan Taylor Other [facility] [employer] Other 10-27-2022 14:20-0400Diastolic blood xejoocie31 mm[Hg] Johan Taylor Other [place] [employer] Other 10-27-2022 14:20-0400Respiratory rate18 /minEdevon Taylor Other [place] [employer] Other 10-27-2022 14:20-5581KyU4% (BldA) [Mass fraction]98 % Johan Taylor Other [place] [employer] Other 10-27-2022 14:20-0400Systolic blood trrvyoks358 mm[Hg] Johan Taylor Other [place] [employer] Other 10-21-2022 11:02-0400Body ptxede684.96 cmDO Maye Bunting Work Phone: 1(501)360[facility]00[facility]10-21-2022 11:02-0400 Body bnoqha313.9 kgDO Maye Bunting Work Phone: 1(292)[address]10-21-2022 11:02-0400 Diastolic blood mm[Hg]DO Maye Bunting Work Phone: 1(983)062-98[facility]10-21-2022 11:02-0400 Heart rate83 /minDO Maye Bunting Work Phone: 1(101)766-66[facility]10-21-2022 11:02-0400 Respiratory rate18 /minDO Maye Bunting Work Phone: 8(766)636-91[facility]10-21-2022 11:02-0400 SaO2% (BldA) [Mass fraction]98 %DO Maye Bunting Work Phone: 1(079)578-[address] [place], [place] 8574610-21-2022 11:02-0400 Systolic blood bjpnaxvt491 mm[Hg]DO Maye Bunting Work Phone: 1(046)[address] [place], [place] 2121910-07-2022 16:28-0400 Body .96 cmDO Maye Bunting Work Phone: 1(662)[address] [place], [place] 2121910-07-2022 16:28-0400 Body ijmytqxppia28.6 [degF]DO Maye Bunting Work Phone: 1(407)[address] [place], [place] 2121910-07-2022 16:28-0400 Body ixzjey792.9 kgDO Maye Bunting Work Phone: 1(200)[address] [place], [place] 2121910-07-2022 16:28-0400 Diastolic blood jbevibbq19 mm[Hg]DO Maye Bunting Work Phone: 1(781)[address] [place], [place] 2121910-07-2022 16:28-0400 Heart rate90 /minDO Maye Bunting Work Phone: 1(686)[address] [place], [place] 2121910-07-2022 16:28-0400 Respiratory rate16 /minDO Maye Bunting Work Phone: 1(709)[address] [place], [place] 2121910-07-2022 16:28-0400 SaO2% (BldA) [Mass fraction]98 %DO Maye Bunting Work Phone: 1(458)[address] [place], [place] 2121910-07-2022 16:28-0400 Systolic blood gmkkiufe408 mm[Hg]DO Maye Bunting Work Phone: 1(500)[address] [place], [place] 2121909-14-2022 11:30-0400 Body foalcm679.88 cmMaJayCut Other [employer] Other 09-14-2022 11:30-0400Body mass index (BMI) [Ratio]33.9 kg/q5ZjokmojJayCut Other [employer] Other 09-14-2022 11:30-0400Body mbhtiqlsnmh44 [degF]Master Mauricio Other noAnimail [employer] Other 09-14-2022 11:30-0400Body mbkjja127.4 kgMattkenrick Mauricio Other [facility] [employer] Other 09-14-2022 11:30-0400Diastolic blood pomffxqy51 mm[Hg] Master Mauricio Other [employer] Other 09-14-2022 11:30-5787BrR5% (BldA) [Mass fraction]97 % Master Mauricio Other [place] [employer] Other 09-14-2022 11:30-0400Systolic blood otydelpq430 mm[Hg] Master Mauricio Other [facility] [employer] Other 09-01-2022 14:30-0400Body nrukvq873.88 cmRiya Pitt Other [employer] Other 09-01-2022 14:30-0400Body pjouxrpcxoz29.9 [degF] Riya Pitt Other [employer] Other 09-01-2022 14:30-0400Diastolic blood oturaumu79 mm[Hg] Riya Pitt Other [employer] Other 09-01-2022 14:30-0400Systolic blood rsuafpdb690 mm[Hg] Riya Pitt Other [employer] Other 08-31-2022 07:30-0400Diastolic blood cxumjvbb67 mm[Hg] [facility] Senior Work Phone: 1(625)245-[facility]08-31-2022 07:30-0400 Heart rate96 /[facility] [employer] Work Phone: 1(965)[address]08-31-2022 07:30-0400 SaO2% (BldA) [Mass fraction]98 %Services [facility] [employer] Work Phone: 1(871)[address]08-31-2022 07:30-0400 Systolic blood xotjqorn458 mm[Hg]Services [facility] [employer] Work Phone: 1(863)95279 [address]08-31-2022 06:01-0400 Respiratory rate18 /[facility] [employer] Work Phone: 1(123)[address]08-31-2022 03:20-0400 Body .6 [degF]Services [facility] [employer] Work Phone: 1(668)[address]08-30-2022 19:42-0400 Body akhlew940.96 cmSEast [facility] [employer] Work Phone: 1(632)18[address]08-30-2022 19:42-0400 Body qarcys812.13 kgSerRiverside Health System [employer] Work Phone: 1(111)[address]08-17-2022 20:00-0400 Body hfzkppxedoc41.6 [degF]Services [facility] [employer] Work Phone: 1(790)14[address]08-17-2022 20:00-0400 Diastolic blood momdsewg44 mm[Hg]Services [facility] [employer] Work Phone: 1(138)[address]08-17-2022 20:00-0400 Heart hmew487 /[facility] [employer] Work Phone: 1(149)2[address]08-17-2022 20:00-0400 Respiratory rate18 /[facility] [employer] Work Phone: 2(014)[address]08-17-2022 20:00-0400 SaO2% (BldA) [Mass fraction]96 %Services [facility] [employer] Work Phone: [facility]08-17-2022 20:00-0400 Systolic blood fefmbjrz762 mm[Hg]Services [facility] [employer] Work Phone: [facility]08-17-2022 06:00-0400 Body fjzoia263 kgServices [facility] [employer] Work Phone: [facility]08-16-2022 14:54-0400 Body nyhovf502.96 cmServCarteret Health Care [employer] Work Phone: [facility]06-21-2022 14:00-0400 Body .88 cmJevera Rocha Other [employer] Other 06-21-2022 14:00-0400Body mass index (BMI) [Ratio]33.9 kg/j1TjrnsxsFawad Rocha Other [employer] Other 06-21-2022 14:00-0400Body hghojqsqkpj78.4 [degF] Fawad Rocha Other [employer] Other 06-21-2022 14:00-0400Body .4 kgJevera Salinasreclaire Other [employer] Other 06-21-2022 14:00-0400Diastolic blood grnnbuhs20 mm[Hg] Fawad Rocha Other [employer] Other 06-21-2022 14:00-6982QqN2% (BldA) [Mass fraction]95 % Fawad Rocha Other [employer] Other 06-21-2022 14:00-0400Systolic blood mm[Hg] Fawad Rocha Other [facility] [employer] Other 06-08-2022 16:20-0400Diastolic blood jfuxotbx49 mm[Hg] Services [facility] [employer] Work Phone: [facility]06-08-2022 16:20-0400 Heart rate95 /[facility] [employer] Work Phone: [facility]06-08-2022 16:20-0400 Respiratory rate18 /minSEast [facility] [employer] Work Phone: [facility]06-08-2022 16:20-0400 SaO2% (BldA) [Mass fraction]98 %Services [facility] [employer] Work Phone: [facility]06-08-2022 16:20-0400 Systolic blood qgnlwleh488 mm[Hg]Services [facility] [employer] Phone: [facility]06-08-2022 14:00-0400 Body vowmduycumk48 [degF]Services [facility] [employer] Work Phone: [facility]12-08-2021 12:00-0500 Body ctutty470.88 Keyona Taylor Other [place] [employer] Other 12-08-2021 12:00-0500Body cvolboyjimo69.4 [degF]Johan Taylor Other [place] [employer] Other 12-08-2021 12:00-0500Diastolic blood nuqfdilx46 mm[Hg] Johan Taylor Other [place] [employer] Other 12-08-2021 12:00-0500Respiratory rate18 /minEdevon Taylor Other [place] [employer] Other 12-08-2021 12:00-5785XbE9% (BldA) [Mass fraction]98 % Johan Taylor Other [employer] Other 12-08-2021 12:00-0500Systolic blood ekbsbeyi344 mm[Hg] Johan Taylor Other [employer] Other 10-20-2021 10:33-0400Body xbwbin351.96 cmServCarteret Health Care [employer] Work Phone: [facility]09-29-2021 12:20-0400 Body .88 cmEdevon Taylor Other [employer] Other 09-29-2021 12:20-0400Body tggybrhutlk89.5 [degF]Johan Taylor Other [employer] Other 09-29-2021 12:20-0400Diastolic blood luyfatdu93 mm[Hg] Johan Taylor Other [employer] Other 09-29-2021 12:20-0400Respiratory rate18 /minEdevon Taylor Other [employer] Other 09-29-2021 12:20-3532FbQ4% (BldA) [Mass fraction]98 % Johan Taylor Other [employer] Other 09-29-2021 12:20-0400Systolic blood vezchkjt331 mm[Hg] Johan Taylor Other [employer] Other 03-22-2021 15:42-0400Body svkdue422.72 kgSerRiverside Health System [employer] Work Phone: [facility] Encounters Encounter DateEncounter TypeCare ProviderFacilityStart: 01-25-2025 End: 12-73-1251vyvtxdceptTbwtd E Spasic [employer] INSPECTOR-C Work Phone[facility]: 01-25-2025 End: 94-67-5249Efrkjufs ReferredLaura E Spasic [employer] INSPECTOR-C[facility] Start: 40-03-3530Fzv-patient / Non-visitFawad Rocha MD-[facility] Vascular Surg Work Phone: Start: 01-04-2025 End: 30-36-6596oqdtnufyeuMmoit E Spasic PRINT LINE INSPECTOR-C Work Phone: [facility] Work Phone: Start: 01-04-2025 End: 12-92-0601Tcvfrit encounter procedureJailene Argueta APRN-[facility] Vascular Surg Work Phone: Start: 11-79-0408Xzo-patient / Non-visitJohan Taylor MD-[facility] D[facility] Work Phone: Start: 12-07-2024 End: 38-65-5974ucjpghncvsGnrmqcLeonides Siddiqi DO Work Phone: [facility] Work Phone: Start: 12-07-2024 End: 22-69-8885Zfemffy encounter procedureFawad Rocha MD-[facility] Vascular Surg Work Phone: Start: 12-07-2024 End: 08-85-7710NyhaywuFawad Rocha MD-[facility] Vascular Surg Work Phone: Start: 12-06-2024 End: 66-14-0613jgrpovvqjdLauzeuLeonides Siddiqi DO Work Phone: [facility] Work Phone: Start: 12-06-2024 End: 81-80-8078Bjvasxs encounter procedureOlga Lidia Martin MD-Dialysis Work Phone: Start: 12-06-2024 End: 58-13-6176Icdzu Qadir MD-Dialysis Work Phone: Start: 13-28-1571Tbm-patient / Non-visitOlga Lidia Martin MD -[facility] Dialysis [facility] Work Phone: Start: 11-12-2024 End: 70-71-8473pldbdcvwfuPzbwd E Spasic PRINT LINE INSPECTOR-C Work Phone: [facility] Work Phone: Start: 11-12-2024 End: 96-92-9680Mnamfqy encounter procedureYisel Andrade MD-Dialysis Work Phone: Start: 11-12-2024 End: 19-41-1058Ttgr Bakhous MD-Dialysis Work Phone: Start: 95-99-4391Jzt-patient / Non-visitYisel Andrade MD-[facility] Dialysis [facility] Work Phone: Start: 02-70-8068Jlos Bakhous MDUP[facility] Work Phone: Start: 65-21-3255Lxj-patient / Non-visitFawad Rocha MD-[facility] Work Phone: Start: 03-73-5229VdqgiogFawad Rocha MD-[facility] Work Phone: Start: 35-84-5202Qmt-patient / Non-visitJohan Taylor MD-[facility] Work Phone: Start: 18-58-3296PbbrdJohan Taylor MD-[facility] Work Phone: Start: 10-11-2024 End: 00-98-2601rzwbjhcvtzObgsw E Spasic PRINT LINE INSPECTOR-C Work Phone: [facility] Work Phone: Start: 10-11-2024 End: 67-81-0873Elrkise encounter procedureJhoan Taylor MD-Dialysis Work Phone: Start: 10-11-2024 End: 77-07-5188ZnjrzJohan Taylor MD-Dialysis Work Phone: Start: 10-07-2024 End: 75-00-0900Jqmyasuzm department patient visitLaura Spasic PRINT LINE INSPECTOR-C Work Phone: [phone])188-4733352-4249-Sgxtvbodx Room Work Phone: Start: 10-07-2024 End: 17-59-5514Kkthk Spasic PRINT LINE INSPECTOR-C Work Phone: [phone](289)409-9926450-2469-Yfsbmhsoa Room Work Phone: Start: 35-54-4950Ayd-patient / Non-visitOlga Lidia Martin MD [facility] Dialysis [facility] Work Phone: Start: 87-48-6677Sfgke Qadir MDUPMC [facility] Work Phone: Start: 62-98-2984Kyq-patient / Non-visitYisel Andrade MD-[facility] Work Phone: Start: 34-10-0425Lewm Bakhous MD-[facility] Work Phone: Start: 09-15-2024 End: 69-37-7035Jlxeqrqyf department patient visitGeorge Iannantuono DO Work Phone: [facility]-Emergency Room Work Phone: Start: 09-15-2024 End: 50-90-1070Ciahp Spasic PRINT LINE INSPECTOR-C Work Phone: [phone]-Axixguteg Room Work Phone: Start: 90-50-7891Zbc-patient / Non-visitGeorge Iannantuono DO Work Phone: [facility] Infect Dis Work Phone: Start: 28-71-1497WnrnjpjRiya Pitt MD-[facility] Work Phone: Start: 15-39-7558Krj-patient / Non-visitGeorge Iannantuono DO Work Phone: [facility] Work Phone: Start: 72-14-5123Wgcjx Qadir MD-[facility] Work Phone: Start: 09-10-2024 End: 53-46-7548Ommouzzmdh and management of inpatientGeorge Iannantuono DO Work Phone: [facility] Work Phone: Start: 09-10-2024 End: 48-60-8145SivqdnjJulian Glynn MD-[facility] Work Phone: Start: 09-09-2024 End: 56-23-5236Kqryohcaf department patient visitGeorge Iannantuono DO Work Phone: [facility]-Emergency Room Work Phone: Start: 09-09-2024 End: 72-65-5803Mpbks Spasic PRINT LINE INSPECTOR-C Work Phone: [phone]-Chlrcysan Room Work Phone: Start: 51-13-6117Qpy-patient / Non-visitOlga Lidia Martin MD -[facility] Dialysis [facility] Work Phone: Start: 72-71-9951Lxxgk Qadir MD-[facility] Dialysis [facility] Work Phone: Start: 08-03-2024 End: 73-32-7942alecoejbkzLvdtnhtw Cullen PA-C Work Phone: [facility] Work Phone: Start: 08-03-2024 End: 05-16-4386Gcltidxz ReferredKatlin ABDI-C Work Phone: [facility]-LAB Path Spec [place] HospStart: 04-03-6113Weq-patient / Non-visitGeorge Iashirano DO Work Phone: [facility] Dialysis [facility] Work Phone: Start: 92-44-7456Juu-patient / Non-visitKimelissaoctavio Chávezen PA-C Work Phone: [facility] Work Phone: Start: 49-38-2842Yna-patient / Non-visitTrentonoctavio Castellanos PA-C Work Phone: [facility] Work Phone: Start: 43-54-7541Bdx-patient / Non-visitPHYSICIAN [facility] Physician [facility] Vascular Surgery Work Phone: Start: 02-05-2024 End: 63-03-1489Bclmbskui to same day surgery centerPHYSICIAN NO [facility]-Interventional Radiology Work Phone: Start: 02-05-2024 End: 38-53-4422xokxsgwpykNUVYNBJBF NO [facility] Work Phone: Start: 01-22-2024 End: 23-16-8527jszqgnnqwdEHQWJJPHT NO [facility] Work Phone: Start: 01-22-2024 End: 25-05-7490Uzfikejl ReferredPHYSICIAN NO [facility]-LAB Path Spec [place] HospStart: 97-19-8630Xnu-patient / Non-visitPHYSICIAN NO [facility] Physician [facility] Out[facility] Work Phone: Start: 12-30-2023 End: 39-06-8413qcihvhtmveZGRZWTTCY NO [facility] Work Phone: Start: 12-30-2023 End: 91-16-7789Bsmswdf encounter procedurePHYSICIAN NO [facility]-Lab [place] Work Phone: Start: 49-93-9077Cpr-patient / Non-visitPHYSICIAN NO [facility] Dialysis [facility] Work Phone: Start: 12-26-2023 End: 85-33-7125skqmulwbzpMWUNRHDLF NO [facility] Work Phone: Start: 12-26-2023 End: 88-74-5746Aqnfvhz encounter procedurePHYSICIAN NO [facility]-Dialysis Work Phone: Start: 12-02-2023 End: 50-94-2793avwknxgezyIACJWCMFX NO [facility] Work Phone: Start: 12-02-2023 End: 72-31-2132Bpbdjvc encounter procedurePHYSICIAN NO [facility] Vascular Surgery Work Phone: Start: 20-98-7058Cgw-patient / Non-visitPHYSICIAN NO [facility] Dialysis [facility] Work Phone: Start: 11-11-2023 End: 42-94-1477zobudbeghiHGOHAJVHV NO [facility] Work Phone: Start: 11-11-2023 End: 08-76-3538Gaxsmyq encounter procedurePHYSICIAN NO [facility] Vascular Surgery Work Phone: Start: 11-07-2023 End: 61-15-6366iticlvrsavXDMGCNYVW NO [facility] Work Phone: Start: 11-07-2023 End: 73-98-1232Aobaxzaw ReferredPHYSICIAN NO [facility]-Dialysis Work Phone: Start: 64-08-7840Mku-patient / Non-visitPHYSICIAN NO [facility] D[facility] Work Phone: Start: 91-49-0319Vtu-patient / Non-visitPHYSICIAN NO [facility] Vascular Surgery Work Phone: Start: 10-28-2023 End: 37-31-3652Nrozbnexp to same day surgery centerPHYSICIAN [facility]-Interventional Radiology Work Phone: Start: 10-28-2023 End: 86-81-8825wlqpddzujlJEIYARYOL NO [facility] Work Phone: Start: 10-21-2023 End: 46-27-2972dsmqpjifaeXHLTIOUDL [facility] Work Phone: Start: 10-21-2023 End: 35-23-3156Xsnzook encounter procedurePHYSICIAN NO [facility] Physician [facility] Vascular Surgery Work Phone: Start: 85-73-8016Svz-patient / Non-visitPHYSICIAN NO [facility] D[facility] Work Phone: Start: 09-09-2023 End: 69-53-0456qvuubogbtzFoujxldq [facility] Work Phone: [facility] Work Phone: Start: 09-09-2023 End: 57-62-8997Dfiiywg encounter procedureServices [facility] Work Phone: [facility] Vascular Surgery Work Phone: Start: 82-66-3834Oml-patient / Non-visitServices [facility] Work Phone: [facility] Vascular Surgery Work Phone: Start: 43-73-9083Hna-patient / Non-visitPHYSICIAN NO [facility] Dialysis [facility] Work Phone: Start: 08-08-2023 End: 64-16-4542xdhkrkhhlmRrqamntk Family [facility] Work Phone: [facility] Work Phone: Start: 08-08-2023 End: 13-94-0174Projvvma ReferredSerRiverside Health System Work Phone: [facility]-Dialysis Work Phone: Start: 08-08-2023 End: 82-23-9261YtpysulyRiverside Health System Work Phone: [facility]-Dialysis Work Phone: Start: 08-06-2023 End: 11-42-6601Nfdjdefkj encounterDeanna Green CMAProMedica Physicians Jobst VascularStart: 08-05-2023 End: 97-02-3364Ougwzdkub to same day surgery centerServusa health university hospital [employer] [facility] Work Phone: [facility]-Interventional Radiology Work Phone: Start: 08-05-2023 End: 21-46-9367duzihbufxkDfagxetg [employer] [facility] Work Phone: [facility] Work Phone: Start: 08-05-2023 End: 17-16-1821JypvwhlqRiverside Health System Work Phone: [facility]-Interventional Radiology Work Phone: Start: 08-05-2023 End: 62-02-3730ywaeifkzevHngaccygNorth [facility] Center Work Phone: [facility] Work Phone: Start: 08-05-2023 End: 51-30-1910Mdueeqp encounter procedureServices [employer] Work Phone: [facility] Vascular Surgery Work Phone: Start: 08-05-2023 End: 32-43-7370Jzfvmnnl Family [facility] Work Phone: [facility] Vascular Surgery Work Phone: Start: 33-51-9988Qid-patient / Non-visitServices Family [facility] Work Phone: [facility] Dialysis [facility] Work Phone: Start: 07-22-2023 End: 65-78-4712kmikzieipeZmbnqmun Family [facility] Work Phone: [facility] Work Phone: Start: 07-22-2023 End: 70-35-5128Yhwojus encounter procedureServices [facility] Work Phone: [facility] Vascular Surgery Work Phone: Start: 44-16-7173Hbwdaeycys RecurringSerRiverside Health System Work Phone: [facility] Acute Work Phone: Start: 07-22-2023 End: 55-93-0360Wxozhoug Family Health Work Phone: [facility] Work Phone: Start: 07-15-2023 End: 68-58-3651asoewnhcowVgvjopne Family Health Work Phone: [facility] Work Phone: Start: 07-15-2023 End: 07-56-1285Nhdbivhk ReferredSerRiverside Health System Work Phone: [facility] [place] Work Phone: Start: 07-15-2023 End: 91-93-3759Kozzmlgr Family Health Work Phone: [facility] [place] Work Phone: Start: 07-10-2023 End: 78-62-2853wfdisgfskfFN-C Mervat E Spasic Work Phone: [facility] Work Phone: Start: 07-10-2023 End: 00-34-4552Reviefo encounter procedureServices [facility] Work Phone: [facility] Work Phone: Start: 07-10-2023 End: 60-38-5808TG-C Mervat Spasic Work Phone: [facility] Work Phone: Start: 29-31-9955JF-C Mervat Spasic Work Phone: [phone] [place] [address]-Cancer Center Acute Work Phone: Start: 49-23-4250YC-C Mervat Spasic Work Phone: [phone] [place] [address]-Cancer Center Acute Work Phone: Start: 67-80-9902Ggt-patient / Non-visitServices [facility] Work Phone: [facility] Surgery Work Phone: Start: 07-03-2023 End: 97-26-7960Kmeilyjqf to same day surgery centerServCarteret Health Care Work Phone: [phone] [place] [address]-Interventional Radiology Work Phone: Start: 07-03-2023 End: 62-95-4687oxdtipzvlpCY-C Mervat E Spasic Work Phone: [facility] Work Phone: Start: 07-03-2023 End: 37-59-7649RZ-C Mervat Spasic Work Phone: [facility]-Interventional Radiology Work Phone: Start: 06-24-2023 End: 21-09-4739hefssdfsnjWE-C Mervat Hughes Spasic Work Phone: [facility] Work Phone: Start: 06-24-2023 End: 42-42-1606HN Fawad Rocha Work Phone: [facility]-Ultrasound [facility] VascularStart: 16-36-9252CC Fawad Rocha Work Phone: [facility] Acute Work Phone: Start: 06-24-2023 End: 03-96-4139pehsenblujBE-C Mervat Hughes Spasic Work Phone: [facility] Work Phone: Start: 06-24-2023 End: 22-42-0392Zarxbio encounter procedureServices [facility] Work Phone: [facility] Work Phone: Start: 06-24-2023 End: 36-67-3303IP-C Mervat Spasic Work Phone: [facility] Work Phone: Start: 06-19-2023 End: 38-72-2578nykgukeadyRS-C Mervat E Spasic Work Phone: [facility] Work Phone: Start: 06-19-2023 End: 75-24-5717Oxgwdknx ReferredSerRiverside Health System Work Phone: [facility] [place] Work Phone: Start: 06-19-2023 End: 67-69-6214XJ-C Mervat Spasic Work Phone: [facility] [place] Work Phone: Start: 34-03-5742EU-C Mervat Snyderc Work Phone: [facility] Work Phone: Start: 06-05-2023 End: 13-62-4014HM-C Mervat Saulsic Work Phone: [facility] [place] Work Phone: Start: 56-53-5736Shdrmsou Result EncounterJose M Landry DO Work Phone: noms External Department UnsolicitedStart: 05-22-2023 External Result EncounterJose M Landry DO Work Phone: noms External Department UnsolicitedStart: 05-22-2023 End: 38-36-5730fgqacuwjanWWSGrand [facility] Work Phone: Start: 05-22-2023 End: 39-39-5836QF Johan Taylor Work Phone: [facility] [place] Work Phone: Start: 01-39-1360DK Johan Taylor Work Phone: [facility] Work Phone: Start: 38-34-4679Itxyvqva Result EncounterJose M Landry DO Work Phone: noms External Department UnsolicitedStart: 05-08-2023 External Result EncounterJose M Landry DO Work Phone: noms External Department UnsolicitedStart: 05-08-2023 Postop follow up visit related to original pxMatthew LangenbergFPG Vascular SurgeryStart: 05-08-2023 End: 03-69-4665rbheegxrktHRD STAFFNorth eInstruction by [employer] Other Start: 05-08-2023 End: 93-68-3505SX Johan Taylor Work Phone: [facility] [place] Work Phone: Start: 05-08-2023 End: 19-88-0250JC Johan Taylor Work Phone: [facility]-Start: 71-21-6181RJ Johan Taylor Work Phone: [facility]-Cancer Center Acute Work Phone: Start: 04-22-2023 End: 97-92-4754gfzjmvblmrPQHMer[facility] Work Phone: Start: 04-22-2023 End: 02-32-8361RRWW Maddie Destiny Work Phone: [facility] [place] Work Phone: Start: 04-16-2023 End: 72-19-3056mlnpshkdmwFMOMercy Health St[facility] Work Phone: Start: 04-16-2023 End: 90-46-6026TFJB Maddie Destiny Work Phone: [facility]-Surgery Center [place]: 71-67-2768HXDN Maddie Dillfany Work Phone: [facility] Work Phone: Start: 04-07-2023 End: 60-14-6504savdjtqgovBcfiunyi [facility] Work Phone: [facility] Work Phone: Start: 04-07-2023 End: 87-54-8521Inrhtud encounter procedureServices [facility] Work Phone: [facility] [place] Work Phone: Start: 04-07-2023 End: 01-27-9203NFEL Maddie Destiny Work Phone: [facility] [place] Work Phone: Start: 25-30-1702Eohnxwbxey RecurringFormerly [facility] Work Phone: [facility] Work Phone: Start: 04-02-2023 End: 88-96-1810rypakwlopzRlcirapfSt. Luke's Hospital Work Phone: [facility] Work Phone: Start: 04-02-2023 End: 29-51-5407Pbqmpzm encounter procedureServCarteret Health Care Senior Work Phone: [facility] Sge-Mnb-Ouisyrxo Testing Work Phone: Start: 04-02-2023 End: 62-35-2245YWGS Maddie Dillfany Work Phone: [facility] Pbm-Uqu-Utlegoib Testing Work Phone: Start: 00-98-6632Bcimjxfcxt RecurringFormerly [facility] Work Phone: [facility] Work Phone: Start: 03-19-2023 End: 63-75-9341amdjbnlgzaMvypwltkSt. Luke's Hospital Work Phone: [facility] Work Phone: Start: 03-19-2023 End: 80-55-7668Smkuzvld ReferredFormerly [facility] Work Phone: [facility] [place] Work Phone: Start: 03-19-2023 End: 39-51-1792XVYA Maddie SanchezPickatale Work Phone: [facility] [place] Work Phone: Start: 03-13-2023 End: 15-03-9198pggsnlekyiMoemlfhm Family Health Senior Work Phone: [facility] Work Phone: Start: 03-13-2023 End: 46-52-9341Pjjjiwbz ReferredSerformerly [facility] Work Phone: [facility]Start: 03-13-2023 End: 73-24-0946QOWY Maddie Dixon Work Phone: [facility] CampusStart: 03-12-2023 End: 88-97-6669ewmogvffrkEfjqpdk Buehrer Other [employer] Other Start: 66-17-4599Ahidznnav encounterFawad Waggoner Referral CoordinatorStart: 03-11-2023 End: 59-71-8140aaupjuzlokVrxjwck Buehrer Other [employer] Other Start: 15-22-2124Jgiebu outpatient visit 25 minutes Fawad Waggoner Vascular SurgeryStart: 03-11-2023 End: 78-15-6511XC Christianoricki Locvaleriano Work Phone: [facility] Vascular Surgery Work Phone: Start: 11-30-8192Fofmbrvmzm RecurringSerRiverside Health System Senior Work Phone: [facility] Work Phone: Start: 03-04-2023 End: 13-00-7616khektolmcwAaozjqxh Family Health Senior Work Phone: [facility] Work Phone: Start: 03-04-2023 End: 81-09-1175Bufvwpw encounter procedureServices [facility] Work Phone: [facility] [place] Work Phone: Start: 03-04-2023 End: 25-10-7440KLZW Maddie Dixon Work Phone: [facility] [place] Work Phone: Start: 02-24-2023 End: 87-54-2697cblxobvhpjNhqjn Elashi Other [place] [employer] Other Start: 19-82-9365Gssvbhouv encounterEssam ElvalerianoFPG NephrologyStart: 02-13-2023 End: 57-54-8811recfqwphbeEomrz Elashi Other [facility] eInstruction by [employer] Other Start: 85-77-4215Dfuzvx outpatient visit 25 minutes Essam IrmaG NephrologyStart: 37-64-5562Bcekaqzij encounterEssam Locexcela [facility] hospitaltibditrt: 02-13-2023 End: 48-61-5701IT Essricki Taylor Work Phone: [facility] Work Phone: Start: 02-07-2023 End: 05-19-4076brrzgbckaaIC-C Mervat Hughes Spasic Work Phone: [facility] Work Phone: Start: 02-07-2023 End: 01-73-3362Oobbsbos [facility] Work Phone: [facility] [place] Work Phone: Start: 02-07-2023 End: 62-85-4324KL-C Mervat Spasic Work Phone: [facility] [place] Work Phone: Start: 01-29-2023 End: 99-49-2330ipzcasfasgRI-C Mervat E Spasic Work Phone: [facility] Work Phone: Start: 01-29-2023 End: 82-78-8969Spjotujw ReferredVal[facility]al [facility] System [facility] Work Phone: [facility] [place] Work Phone: Start: 01-29-2023 End: 44-98-4183FR-C Mervat Spasic Work Phone: [facility] [place] Work Phone: Start: 01-17-2023 End: 51-76-7039utpwwfuvcmYM-C Mervat E Spasic Work Phone: [facility] Work Phone: Start: 01-17-2023 End: 39-86-5027QG-C Mervat Spasic Work Phone: [facility]-Cancer Center Work Phone: Start: 01-15-2023 End: 42-88-3132fsojpbyajxHB-C Mervat E Spasic Work Phone: [facility] Work Phone: Start: 01-15-2023 End: 32-27-1529Zjgatzkq ReferredFormerly [facility] Work Phone: [facility] [place] Work Phone: Start: 01-15-2023 End: 88-31-2339AN-C Mervat Spasic Work Phone: [facility] [place] Work Phone: Start: 01-03-2023 End: 76-17-7725ttpshyrlkuTP-C Mervat E Spasic Work Phone: [facility] Work Phone: Start: 01-03-2023 End: 68-74-7911Rdmbvuh encounter procedureSEast [facility] Work Phone: [facility] [place] Work Phone: Start: 01-03-2023 End: 94-51-5204EJ-C Mervat Spasic Work Phone: [facility] [place] Work Phone: Start: 14-46-4120FL-C Mervat Spasic Work Phone: [facility]Cancer [facility] Work Phone: Start: 12-24-2022 End: 14-55-6836jnzucnqqmdON-C Mervat E Spasic Work Phone: [facility] Work Phone: Start: 12-24-2022 End: 07-29-6800Aprpyysq ReferredSerRiverside Health System Senior Work Phone: [facility] ServicesStart: 12-24-2022 End: 17-78-7939FC-C Mervat Spasic Work Phone: [facility] CampusStart: 12-19-2022 End: 40-28-5363Jtkotem encounter procedureKiko Corbett [facility] Start: 12-13-2022 End: 89-15-5683cvsstcsurnEW-C Mervat E Spasic Work Phone: [facility] Work Phone: Start: 12-13-2022 End: 98-39-9603Leeliytw ReferredSerRiverside Health System Senior Work Phone: [facility] [place] Work Phone: Start: 12-13-2022 End: 61-55-0166GI-C Mervat Spasic Work Phone: [facility] [place] Work Phone: Start: 12-12-2022 End: 87-29-5912onttzbsiloDcvik Claudia Other [facility] eInstruction [employer] Other Start: 59-30-4136Nifsax outpatient visit 25 minutes Essam ClaudiaFPG NephrologyStart: 11-27-2022 End: 64-50-3059fxrhjncrdsIB-C Mervat Hughes Spasic Work Phone: [facility] Work Phone: Start: 11-27-2022 End: 40-89-2294BUJacob Saulsic Work Phone: [facility] [place] Work Phone: Start: 11-15-2022 End: 75-78-8675odalnxhjqhBO Maye Bunting Work Phone: [facility] Work Phone: Start: 11-15-2022 End: 69-05-4704NH Maye Bunting Work Phone: [facility] [place] Work Phone: Start: 11-07-2022 End: 86-06-4723scavmpbxztQfqkypf Blank Other [facility] [employer] Other Start: 21-45-5305Rgpoqw outpatient visit 25 minutes Riya Aviles Infectious DiseaseStart: 83-11-1608PA Maye Bunting Work Phone: [facility] Work Phone: Start: 11-04-2022 End: 08-42-1578qajtcbyzrcCT Maye Bunting Work Phone: [facility] Work Phone: Start: 11-04-2022 End: 00-97-8452ID Maye Bunting Work Phone: [facility] [place] Work Phone: Start: 10-22-2022 End: 32-59-7477Wljvoyqjux and management of inpatientDO Maye Bunting Work Phone: [facility] Work Phone: Start: 10-22-2022 End: 60-39-8399PQ Maye Bunting Work Phone: [facility] Work Phone: Start: 10-21-2022 End: 10-22-9337Rqlniimhp department patient visitDO Maye Bunting Work Phone: [facility] Work Phone: Start: 10-21-2022 End: 02-71-4750CN Maye Bunting Work Phone: [facility]-Emergency Room Work Phone: Start: 10-17-2022 End: 00-86-2800bqpnddpidcXqabagm Blank Other [place] [employer] Other Start: 40-61-8149Uojioaqyy encounterMichael BlankFPG Infectious DiseaseStart: 10-16-2022 End: 27-74-3101nxxekuylmwNL Maye Bunting Work Phone: [facility] Work Phone: Start: 10-16-2022 End: 97-12-7296RB Maye Bunting Work Phone: [facility] [place] Work Phone: Start: 10-15-2022 End: 74-28-7172Axmupxlhe department patient visitDO Maye Bunting Work Phone: [facility] Work Phone: Start: 10-15-2022 End: 39-10-1961PY Maye Bunting Work Phone: [facility]-Emergency Room Work Phone: Start: 10-13-2022 End: 35-19-8705Iwyptxgpd department patient visitDO Maye Bunting Work Phone: [facility] Work Phone: Start: 10-13-2022 End: 14-79-9869GQ Maey Bunting Work Phone: [facility]-Emergency Room Work Phone: Start: 10-11-2022 End: 65-89-7509vekengbfyfIC Maye Bunting Work Phone: [facility] Work Phone: Start: 10-11-2022 End: 49-93-0556FW Maye Bunting Work Phone: [facility] [place] Work Phone: Start: 10-09-2022 End: 00-68-0352krbxzthecpXA Maye Bunting Work Phone: [facility] Work Phone: Start: 10-09-2022 End: 14-16-3767FW Maye Bunting Work Phone: [facility] [place] Work Phone: Start: 08-10-7460ZZ Maye Bunting Work Phone: [facility]-Cancer Center Work Phone: Start: 10-03-2022 End: 64-29-2825tglyweharkMV Maye Bunting Work Phone: [facility] Work Phone: Start: 10-03-2022 End: 12-73-7123MX Maye Bunting Work Phone: [facility]oIn[facility] HospitalStart: 10-02-2022 End: 89-09-9070nnrhsjnbchHV Maye Bunting Work Phone: [facility] Work Phone: Start: 10-02-2022 End: 55-53-3657BK Maye Bunting Work Phone: [facility] [place] Work Phone: Start: 72-19-7640Uluurozxn encounterJeyumiko Mckeon INTERVENTIONAL RADIOLOGYComment on above:tube removalStart: 09-12-2022 End: 36-69-2367Tveqgbe encounter Doreen Corbett [facility] Start: 23-31-5043Valjkjtcvq and management of inpatient DO Maye Bunting Work Phone: [facility] Work Phone: Start: 09-10-2022 End: 94-16-3703AP Maye Bunting Work Phone: [facility]-4 [facility] Work Phone: Start: 28-73-5141uydfqoiplpQo. Maye Ray Bunting Facility:[id number]: 08-29-2022 End: 21-09-1962Vildxicbpg and management of inpatientObaydah M Daromar [facility]: 08-29-2022 End: 12-70-3450RS Maye Bunting Work Phone: [facility] Work Phone: Start: 08-27-2022 End: 50-32-9471Hpdpgyusb department patient visitSrinivas Glynn LaurenFacility:[facility]: 08-27-2022 End: 44-00-2784WP Maye Bunting Work Phone: [facility]-Emergency Room Work Phone: Start: 08-20-2022 End: 13-21-1243tfmzknoqtfTdaxs E SpasicFacility:[facility]: 08-20-2022 End: 67-22-7698UF Maye Bunting Work Phone: [facility] CampusStart: 08-16-2022 End: 78-28-3117djyquwqcuqSTDHG D [facility] SATELLITEFacility:A9Kustj: 08-09-2022 ambulatoryLaura E SpasicFacility:[facility]: 24-67-6889HO Maye Bunting Work Phone: [facility] Work Phone: Start: 08-01-2022 End: 98-05-2062Qgvsbwi encounter Doreen Corbett [facility] Start: 08-09-8419Khhroytlc encounterJaclcarla Mccoy APRN.CNP Work Phone: [facility] Provider AdultComment on above:Returning Patient's CallStart: 07-19-2022 End: 42-49-7055gljfjmmlchLX Maye Bunting Work Phone: [facility] Work Phone: Start: 07-19-2022 End: 05-00-4019Kljjdcqrfo RecurringDO Maye Bunting Work Phone: [facility] Work Phone: Start: 12-24-7744Vqagbinwe encounterArden Stockton MD Work Phone: [facility] Provider AdultComment on above:[place] - ED Follow UpStart: 07-17-2022 End: 04-56-8109hfovlapwseKQQWO THAKURFacility:[facility] Hospitaltart: 07-16-2022 End: 06-93-2531Lzsxggvaj department patient visitDO Maye Bunting Work Phone: [facility]-Emergency Room Work Phone: Start: 07-16-2022 End: 78-01-2224GC Maye Bunting Work Phone: [facility]-Emergency [facility] Work Phone: Start: 14-70-6624Ffbtyoqcsa RecurringDO Maye Bunting Work Phone: [facility] Work Phone: Start: 07-04-2022 End: 97-98-8028axvimfqnnhNffjan BuntingFacility:[facility]: 07-04-2022 End: 97-30-9057atxuovxmcbGD Maye Bunting Work Phone: [facility] Work Phone: Start: 07-04-2022 End: 91-16-9165Fbxtbbjf ReferredDO Maye Bunting Work Phone: [facility] [place] Work Phone: Start: 07-04-2022 End: 77-36-0367EL Maye Bunting Work Phone: [facility] [place] Work Phone: Start: 07-01-2022 End: 78-28-4587dceggjqakzTHHSTNU GEISINGERFacility:[facility] Hospitaltart: 41-64-0862Gynmwxqukj RecurringDO Maye Bunting Work Phone: [facility] Work Phone: Start: 06-20-2022 End: 93-20-9851xouztgmvbqSvarvm BuntingFacility:[facility]: 06-20-2022 End: 90-71-0338msyytubfuiQV Maye Bunting Work Phone: [facility] Work Phone: Start: 06-20-2022 End: 17-53-3126Ccominwl ReferredDO Maye Bunting Work Phone: [facility] [place] Work Phone: Start: 06-20-2022 End: 54-13-6651FD Maye Bunting Work Phone: [facility] [place] Work Phone: Start: 06-07-2022 End: 29-18-6859Wftyplv encounter procedureKiko Corbett [facility] Miguelangel Start: 26-56-0120Vaaioeqzft RecurringDO Maye Bunting Work Phone: [facility] Work Phone: Start: 05-21-2022 End: 36-31-4876Izkvvs-up encounterAngio 1 Work Phone: RadiologyComment on above:Radiology IR (Follow up nephrostomy tube placement)Start: 05-21-2022 End: 10-97-4668Fvnnhdr encounter procedureAngio Room 1 Work Phone: [facility] MAINStart: 15-15-3498Xqxgmz Only Bri Mckeon INTERVENTIONAL RADIOLOGYComment on above:Hydronephrosis, unspecified hydronephrosis type (Primary Dx)Start: 05-06-2022 End: 97-35-2679rfocrgjxzzACSPOW GUANFacility:[facility]tart: 05-03-2022 Telephone encounterLyrolf [facility] Radiology ProcedureComment on above:AppointmentStart: 05-03-2022 End: 85-84-5340rcanqtfiyxRDDKIY GUANFacility:[facility]tart: 04-26-2022 End: 76-07-7263Htfkisv encounter procedureKiko Corbett [facility] Miguelangel Start: 17-34-7394Mlueolicp encounterMatthew Maki RN [facility] Radiology ProcedureComment on above:Radiology Pre Procedure InstructionsStart: 04-22-2022 End: 63-60-6825gqjbfzwjziHX Maye Bunting Work Phone: [facility] Work Phone: Start: 04-22-2022 End: 06-44-2441Yjvzxfbvkx RecurringDO Maey Bunting Work Phone: [facility] Work Phone: Start: 04-09-2022 End: 47-77-2279zjszqyriaxMaljx M LueFacility:[facility] Start: 04-09-2022 End: 07-61-6618Fbguslhbg to same day surgery centerDO Maye Bunting Work Phone: [facility] Main CampusStart: 04-09-2022 End: 22-09-5190qqpklmtrejXI Maye Bunting Work Phone: [facility] Work Phone: Start: 13-34-2304Sihcqrxpbi RecurringDO Maye Bunting Work Phone: [facility] Work Phone: Start: 03-22-2022 End: 34-62-9169xuvhqmwizkAvzmun BuntingFacility:[facility]: 03-21-2022 End: 76-21-4324pfolfhisjyBC Maye Bunting Work Phone: [facility] Work Phone: Start: 03-21-2022 End: 55-21-0918Ooaxxrp encounter procedureDO Maye Bunting Work Phone: [facility]Start: 84-08-3668Sqrow UpdateDarrin R Bunting Work Phone: [phone]-Cjmgm [facility] [address] DO Work Phone: Start: 03-14-2022 End: 98-11-0690gkjgspiukpZcptf M LueFacility:[facility] Start: 03-14-2022 End: 58-38-9700ajwfuspkleRO Maye Bunting Work Phone: [facility] Work Phone: Start: 03-14-2022 End: 18-88-0221Svikjfx encounter procedureDO Maye Bunting Work Phone: [facility]-Ultrasound [facility] [place] Start: 39-55-6080Cvbehcbhse RecurringDO Maye Bunting Work Phone: [facility]-Cancer CenterStart: 03-08-2022 End: 68-92-1760qkkrhdpcbkBftdkn BuntingFacility:[facility]: 03-08-2022 End: 88-59-0901pcuettskyyLD Maye Bunting Work Phone: [facility] Work Phone: Start: 03-08-2022 End: 59-33-3676Zkjzitcp ReferredDO Maye Bunting Work Phone: [facility]-Lab Main CampusStart: 03-08-2022 End: 28-28-2698Nrpwniw encounter procedureDO Maye Bunting Work Phone: [facility]-Outpatient Registration Start: 07-40-3024WRVMHEbahgr R Bunting Work Phone: [phone]-Wxaof [facility] DO Work Phone: Start: 52-15-4626mdxvwntxwbOn. Maye Murray Facility:[id number]: 40-83-5857GQLDTUGEM, Provider: Brandan Heller, Status: Pen, Time: 1:00 PMDarrin R Bunting Work Phone: [facility] Work Phone: Start: 03-05-2022 End: 13-17-2156kshrnybqtpBpgrxg JessicaanFacility:[facility] Start: 03-05-2022 End: 93-80-8726xvimdwocjcLV Mayejennifer Murray Work Phone: [facility] Work Phone: Start: 03-05-2022 End: 49-70-6216Mjyaztv encounter procedureDO Maye Murray Work Phone: [facility]-Electrodiagnostics Start: 44-32-1620qjdvicawnsCk. Maye Yaakov KleberrinaFacility:9090Start: 02-22-2022 Registered RecurringDO Maye Murray Work Phone: [facility]-Cancer CenterStart: 70-24-9596Alippg consultation new/estab patient 60 minDarrin R Bunting Work Phone: [phone]-Ohmya [facility] DO Work Phone: Start: 28-22-4612Fqqyas outpatient new 45 minutes Myae R Bunting Work Phone: [facility] Work Phone: Start: 56-91-0185Mxyhges encounter procedureDarrin R Bunting Work Phone: [phone]-Hktho [facility] DO Work Phone: Start: 44-20-4172hqrazgbqvvMc. Maye Ray Bunrina Facility:10120Eywyr: 01-31-2022 End: 99-00-3014agncmmcgbkOqqsx Elashi Other [place] [employer] Other Start: 97-27-7712Tlnxdg outpatient visit 25 minutes Johan TaylorFPG NephrologyStart: 01-15-2022 End: 82-08-7513iefkpdkywqYcprg M LueFacility:[facility] Start: 01-15-2022 End: 91-41-1454Blftytiq ReferredDO Maye Murray Work Phone: [facility]-Surgery Center [facility] [place]Start: 01-11-2022 End: 04-81-1119mvpyswsxohItehb M LueFacility:[facility] Start: 01-11-2022 End: 25-00-9487exoqstkwrgPR Ivan Rosalie Springer Work Phone: [facility] Work Phone: Start: 01-11-2022 End: 24-39-4303Jtxxysr encounter procedureDO Ivan Springer Work Phone: [facility] Pnx-Yzq-Ewlzxkbu Testing Start: 91-76-6027Npjxmnmspj Recurring Ivan Springer Work Phone: [facility] CenterStart: 12-19-2021 End: 77-51-0387upnvhsqnpzFktvhlo [facility] eInstruction [employer] Other Start: 90-35-2326Xtttem outpatient visit 15 minutes Master Rios Vascular SurgeryStart: 12-14-2021 End: 99-58-6884yezedvpfumBmyi Bakhous Other nort eInstruction by [employer] Other Start: 40-14-0202Ommugzovn encounterYisel Chávez Infectious DiseaseStart: 12-07-2021 End: 18-54-9638Eowkzbc encounter procedureKiko Corbett [facility] Start: 12-06-2021 End: 43-96-1413dcdhyistahKfokqlv Blank Other [facility] eInstruction by [employer] Other Start: 42-83-9092Oinhbp outpatient visit 25 minutes Riya Aviles Infectious DiseaseStart: 03-48-3244Oyyvzdmmap RecurringSerRiverside Health System Senior Work Phone: [facility] CenterStart: 12-05-2021 End: 34-29-2407gnrbanjmtzBftdr M LueFacility:[facility] Start: 12-05-2021 End: 96-49-2024Nfxeiko encounter procedureServYadkin Valley Community Hospital Work Phone: [facility] Main [place] Start: 12-04-2021 End: 04-53-6275Hpdyrerec department patient visitAlexander Rosendo Keister [facility]: 12-04-2021 End: 38-21-1114Pvnxqxtuo department patient visitServYadkin Valley Community Hospital Work Phone: [facility]-Emergency RoomStart: 11-30-2021 End: 46-02-9842yeexzkduiwFveb Bakhous Other [facility] e[employer]ruction by [employer] Other Start: 07-27-0460Vnvfhfcxq encounterAztigre Chávez NephrologyStart: 11-14-2021 End: 53-21-3834Aiuxiesrln and management of inpatientDarrin Bunting [facility]: 11-14-2021 End: 41-05-3224Myefbwfafq and management of inpatientServYadkin Valley Community Hospital Work Phone: [facility] Start: 09-25-2021 End: 86-81-3442adkmkuwyhdZbthtmw Buehrer Other [facility] e[employer]ruction [employer] Other start: 16-23-6803Ghrizh outpatient visit 25 minutes Fawad MccallumrFCHRIS Vascular SurgeryStart: 09-13-2021 End: 03-80-9087ofxsukkjtcXjrz BauerFacility:[facility] Start: 09-13-2021 End: 85-94-3959Ybhsjzd encounter procedureServices [facility] Senior Work Phone: [facility] Main CampusStart: 07-02-2021 End: 11-61-4145hovjokqpsyGrgqi Mario Other [employer] Other Start: 84-50-2826Nirehagbq encounterAbdul QadirFPG NephrologyStart: 03-14-2021 End: 04-77-5953ysuzrusjgpOgntj Elashi Other noShineon Other Start: 39-08-3363Jbwkkb outpatient visit 25 minutes Essam ElashiFPG NephrologyStart: 71-16-5571Gaxoni outpatient visit 25 minutes Essam ElashiFPG NephrologyPatient encounter statusDarrsierra Shahidting Work Phone: [phone]-Byxhj [facility] 250 DO Work Phone: Procedures DateProcedureProcedure DetailPerforming ClinicianStart: 98-78-3658Glkid X-ray of right tibia and right fibulaGeorge Iannantuono DO Work Phone: Start: 94-39-5161Uenze volume recorder pneumoplethysmographyGeorge Iannantuono DO Work Phone: Start: 91-05-5187T-ray of both feetGeorge Iannantuono DO Work Phone: Start: 71-67-8067IN angiography of thoraxGeorge Iannantuono DO Work Phone: Start: 84-70-0732QY of abdomen and pelvis without contrastGeorge Iannantuono DO Work Phone: Start: 20-24-8660XC of head without contrastGeorge Iannantuono DO Work Phone: Start: 06-77-4898Mztew chest X-rayGeorge Iannantuono DO Work Phone: Start: 79-47-4214Sbrxglg microbial cultureGeorge Iannantuono DO Work Phone: Start: 59-55-0262Ifyoccxq identified in Blood by CultureGeorge Iannantuono DO Work Phone: Start: 09-62-3957Smizq Spasic PRINT LINE INSPECTOR-[employer] Work Phone: Start: 27-17-8908DF Fistulogram/TLA Stent (Right) PHYSICIAN NO FAMILYStart: 31-43-4736JF Fistulogram/TLA Stent (Right)PHYSICIAN NO FAMILYStart: 90-47-5739DnkcctxgivgvbrtEwdsugmw [facility] Work Phone: Start: 82-94-9041KP Fistulogram/TLA Stent (Right)PRINT LINE INSPECTORJacob Santiago Work Phone: Start: 83-54-0311Uwdsufsp blood count with white cell differential, automatedJose M Landry DO Work Phone: Start: 29-60-6511Vfshrbxagraez metabolic panelJose M Landry DO Work Phone: Start: 09-62-9652Mvinziog blood count with white cell differential, automatedJose M Landry DO Work Phone: Start: 10-14-1896Owrmbtrzmhrro metabolic panelJose M Landry DO Work Phone: Start: 17-15-5860Lfduobcashlze fistulizationAPRN Maddie Dixon Work Phone: Start: 85-62-7037RF angiographySerformerly [facility] Work Phone: Start: 69-99-8033Vnzmaigrlvxjofv of liverNP-C Mervat Spasic Work Phone: Start: 76-61-5378Kllra culture for bacteria, including anaerobic screenDO Maye Bunting Work Phone: Start: 58-86-7480Liwrg culture for bacteria, including anaerobic screenDO Maye Bunting Work Phone: Start: 42-14-8902Tbrmbht microbial cultureDO Maye Bunting Work Phone: Start: 04-29-7529Uvbnf culture for bacteria, including anaerobic screenDO Maye Bunting Work Phone: Start: 32-29-6462OU Maye Bunting Work Phone: Start: 63-46-4298N-ray of right footDO Maye Bunting Work Phone: Start: 21-79-5376Wzsolgw microbial cultureDO Maye Bunting Work Phone: Start: 48-63-3653Qvove culture for bacteria, including anaerobic screenDO Maye Bunting Work Phone: Start: 82-91-7914WLV of right footDO Maye Bunting Work Phone: Start: 34-59-6139HQC of lower legDO Maye Bunting Work Phone: Start: 19-84-3021UP Maye Bunting Work Phone: Start: 90-55-6765Qzshi culture for bacteria, including anaerobic screenDO Maye Bunting Work Phone: Start: 44-86-3175Ecesaefvbupsofq of bilateral kidneys DO Maye Bunting Work Phone: Start: 87-59-7425Rhyzd culture for bacteria, including anaerobic screenDO Maye Bunting Work Phone: Start: 43-07-2620OK Maye Bunting Work Phone: Start: 12-85-5424P-ray of right footDO Maye Bunting Work Phone: Start: 30-63-1667Klohvhd microbial cultureDO Maye Bunting Work Phone: Start: 56-94-7098Xwbhd culture for bacteria, including anaerobic screenDO Maye OraHealthting Work Phone: Start: 21-65-7616HZKL Antigen (LFIA)DO Maye Bunting Work Phone: Start: 42-16-9944KD Maye Bunting Work Phone: start: 37-76-0745IQ of abdomen and pelvis without contrastDO Maye Bunting Work Phone: Start: 39-79-2178NuoednyvjsQU Maye Bunting Work Phone: Start: 46-85-2791Vudzcpbjwo radiography of abdomenDO Maye Bunting Work Phone: Start: 03-22-3845IdgzwphmpuBebsj Lue Start: 81-37-5066Dexljhangtekwrt of bilateral kidneysDO Maye Bunting Work Phone: Start: 84-46-4480Iqgkctksvair myocardial perfusion stress studyDO Maye DiskonH[employer] Work Phone: Start: 06-87-0250Vjwtoyunlqwahsl of bilateral kidneys Services [facility] [employer] Phone: Start: 00-26-6464Qadmlhwu screenDarrin BuntingComment on above:Order Comment: Number of units to transfuse now? 2Result Comment: PERFORMED BY:[place] [address] [address] [phone] MEDICAL DIRECTORCHRISTO PINO M.D.Start: 11-21-2021 Plain chest X-rayServCarteret Health Care [employer] Work Phone: Start: 73-85-4856QK of abdomen and pelvis without contrastServices [facility] [employer] Work Phone: Start: 42-29-3340Gwdjyrev screenDarrin BuntingComment on above:Result Comment: PERFORMED BY:[facility] [place], [place] [phone] MEDICAL DIRECTORCHRISTO PINO M.D.Start: 37-44-6855HS of abdomen and pelvis without contrastServices [facility] [employer] Work Phone: Start: 96-65-1814IQF of right footServices [facility] [employer] Work Phone: Start: 10-20-5511Fhrby chest X-rayServices [facility] [employer] Work Phone: Start: 94-15-3206RWG of right footServices [facility] [employer] Work Phone: Start: 20-91-7186RmecttqhvkDvhth Lue Start: 07-87-7649Aeoxu colonoscopyDarrin R Bunting Work Phone: Start: 82-40-7751KedknkplagJrbnc Lue Amputation of toeDarrin R Bunting Work Phone: Comment on above:left foot;AppendectomyDarrin R Bunting Work Phone: Blood culture for bacteria, including anaerobic screen Services [employer] Work Phone: H/O splenectomyS/P splenectomyDarrin R Bunting Work Phone: Operative procedure on footDarrin R Bunting Work Phone: Repair of musculotendinous cuff of shoulderDarrin R Bunting Work Phone: Comment on above:right;SARS Antigen (LFIA)Services [facility] [employer] Work Phone: SplenectomyDarrin R Bunting Work Phone: [facility] Senior Work Phone: Plan of Treatment DateCare ActivityDetailAuthorStart: 06-09-7049AUOAXIES SCREENDIABETES SCREEN [facility]: 84-72-0440WqefabxbhT[facility]edo Hospital CenterStart: 06-91-4709UcwjnfhxcToledo Hospital CenterStart: 15-89-4621Epfmidpsntasmd of prophylactic treatmentToledo Hospital CenterStart: 95-00-5347Lbzcwajj admissionToledo Hospital CenterStart: 17-80-6416Qjvfklzz to clinical allergistT[facility] Hospital CenterStart: 78-55-9295Rjboeyxi to nephrologSalem City Hospital CenterStart: 19-64-9674Cqmpbddzdcuqks of prophylactic treatmentToledo Hospital CenterStart: 39-62-0777Oeuzwine to podiatristT[facility] Hospital CenterStart: 25-66-5510Qlagvevx to nephrologSalem City Hospital CenterStart: 05-32-1680Cliciwnd admission [facility] CenterStart: 63-55-3199ZjacmkmvyToledo Hospital CenterStart: 73-71-6471CdtoiveaeT[facility] Hospital CenterStart: 09-18-2024 [facility] CenterStart: 04-54-7893XqqmlpvqaT[facility] Hospital CenterStart: 19-95-6439PshgrelsjT[facility] Hospital CenterStart: 09-15-2024 [facility] CenterStart: 64-16-3790Rhigtknidxndu metabolic 1999 panel - Serum or PlasmaToledo Hospital CenterStart: 09-14-2024 End: 97-84-1838FgnulieblToledo Hospital CenterStart: 38-13-5210Hwfusqbttluax metabolic 1999 panel - Serum or PlasmaToledo Hospital CenterStart: 53-49-1570CfylsoixdToledo Hospital CenterStart: 76-68-2519Fjgvqkmk to infectious diseases physicianT[facility] Hospital CenterStart: 09-12-2024 Comprehensive metabolic 1999 panel - Serum or PlasmaToledo Hospital CenterStart: 43-11-5453IoqofvcjrToledo Hospital CenterStart: 09-11-2024 Administration of prophylactic treatmentBarnesville Hospitaltart: 97-89-4158Mdwajybftzxbg metabolic 2000 panel - Serum or PlasmaT[facility] Hospital CenterStart: 07-34-3273VicxkefuuBarnesville Hospitaltart: 75-29-9929Rwcdthlx to podiatristBarnesville Hospitaltart: 14-99-6599Jenjmlkq to nephrologistToledo Hospital CenterStart: 52-36-9825Hqlzzfte admissionToledo Hospital CenterStart: 09-10-2024 Physical therapy procedureBarnesville Hospitaltart: 09-10-2024 Referral to occupational therapistT[facility] Hospital CenterStart: 71-73-6374CbimeotiwT[facility]edo Hospital CenterStart: 09-10-2024 End: 90-13-2027TuuektfalBarnesville Hospitaltart: 11-38-1931Neiwjxvt identified in Blood by CultureBlood CultureMercer County Community Hospital Start: 84-88-0016Saccxnohrwb of Urinary Filtration, Intermittent, Less than 6 Hours Per DayPerformance of Urinary Filtration, Intermittent, Less than 6 Hours Per DayT[facility]edo Hospital CenterStart: 13-81-6434OxhjzkflyT[facility]edo Hospital CenterStart: 91-84-5716PuvstmmwyT[facility] Hospital CenterStart: 68-11-9889Qhhlvuinh vaccinationInfluenza VaccineMercy Memorial Hospital SystemStart: 87-36-2483OfxkvtrwsT[facility] Hospital CenterStart: 12-70-6561VdzllzkgoT[facility]edo Hospital CenterStart: 41-63-8255VbpjmrwaaT[facility]edo Hospital CenterStart: 31-89-4826QnlwscdupT[facility] Hospital CenterStart: 84-13-3198XlmseeqskT[facility]edo Hospital CenterStart: 70-86-3277BiflfbbcwT[facility]edo Hospital CenterStart: 78-81-3857KXLIQMWJTI/HEMATOCRITHEMOGLOBIN/HEMATOCRITKnoxville ClinicStart: 52-02-7526HFNFI CREATININESERUM CREATININEPike Community Hospitaltart: 07-18-2023 HEMOGLOBIN/HEMATOCRITHEMOGLOBIN/HEMATOCRITPike Community Hospitaltart: 41-93-2974LALEQ CREATININESERUM CREATININEPike Community Hospitaltart: 99-14-4728SvduhjooaT[facility]edo Hospital CenterStart: 24-25-1888VfjnqykdzT[facility]edo Hospital CenterStart: 22-19-0159DawgsimlyT[facility]edo Hospital CenterStart: 27-95-8407MzccgfegmT[facility]edo Hospital CenterStart: 79-79-6229ZpwkoltzyT[facility] Hospital CenterStart: 32-99-4774RW AV fistulaT[facility]edo Hospital CenterStart: 06-24-2023 [facility] CenterStart: 14-77-2001PbbrsyptpT[facility]edo Hospital CenterStart: 97-53-4004MvzwmugfvT[facility]edo Hospital CenterStart: 05-26-2023 [facility] CenterStart: 79-28-5112WwvefhrioT[facility] Hospital CenterStart: 05-12-2023 End: 61-89-1158VujywpcbzToledo Hospital CenterStart: 05-06-2023 HEMOGLOBIN/HEMATOCRITHEMOGLOBIN/HEMATOCRITPike Community Hospitaltart: 48-43-0530EKQQI CREATININESERUM CREATININEPike Community Hospitaltart: 29-14-8433KjstbqcxqT[facility]edo Hospital CenterStart: 23-10-2972TwaqkoyuuToledo Hospital CenterStart: 91-21-8485UhcvxhggpT[facility]edo Hospital CenterStart: 24-55-5594SqrmguctvToledo Hospital CenterStart: 91-00-3866OstotfoktToledo Hospital CenterStart: 52-76-2943ExypbhucxT[facility]edo Hospital CenterStart: 18-79-4855SxlltyeoxT[facility]edo Hospital CenterStart: 80-70-8785WjnvqvjtqToledo Hospital CenterStart: 01-23-7417TwvhnopoeToledo Hospital CenterStart: 63-83-9246DwjynaooxT[facility]edo Hospital CenterStart: 64-06-9398Lqejfktlp [facility] CenterStart: 28-14-8058YA angiographyUS map hemodial access [facility] CenterStart: 03-42-5993YR Unspecified body [facility] CenterStart: 37-34-0082SltsnqxvqToledo Hospital CenterStart: 02-20-2023 [facility] CenterStart: 81-49-3119RyjibmehjToledo Hospital CenterStart: 19-96-5728DktflstxoT[facility]edo Hospital CenterStart: 01-31-2023 [facility] CenterStart: 01-16-2023 End: 06-22-4656GnwrzwutmT[facility]edo Hospital CenterStart: 40-17-3718YjvimxcggToledo Hospital CenterStart: 49-15-7504FcshbrrayT[facility] Hospital CenterStart: 85-90-1407AebnjzywxT[facility]edo Hospital CenterStart: 64-94-1690HwfokeblgT[facility]edo Hospital CenterStart: 80-65-4357PmvaaymmsT[facility]edo Hospital CenterStart: 19-46-4253QpljlecsvT[facility] Hospital CenterStart: 06-41-3115LblwzoconT[facility] Hospital CenterStart: 53-09-5410BwqejmohcT[facility]edo Hospital CenterStart: 36-44-3254TbybvqgxzToledo Hospital CenterStart: 17-81-0387Elmcm chemistry [facility] CenterStart: 72-65-2114WlzuwnnevToledo Hospital CenterStart: 72-40-3294Pwcah chemistryT[facility] Hospital CenterStart: 19-39-0520McgkvjfssT[facility]edo Hospital CenterStart: 48-14-1050Iypdy chemistry [facility] CenterStart: 92-12-0172OptszckleT[facility] Hospital CenterStart: 75-48-7030Fhoir chemistryT[facility] Hospital CenterStart: 10-24-2022 End: 23-04-3988GstqdlutsToledo Hospital CenterStart: 06-27-8294Eicabzpjseyxvu of prophylactic treatmentToledo Hospital CenterStart: 18-41-6007Rifcq chemistryT[facility] Hospital CenterStart: 33-82-2206CpebexvacT[facility]edo Hospital CenterStart: 70-42-8815Fqirists admissionT[facility] Hospital CenterStart: 09-69-5293Aqobunwc to infectious diseases physicianT[facility] Hospital CenterStart: 10-22-2022 End: 02-51-5143GdikmkkvcToledo Hospital CenterStart: 35-52-9495Eaaus culture for bacteria, including anaerobic screenToledo Hospital CenterStart: 69-06-0786Xbxtt culture for bacteria, including anaerobic screenToledo Hospital CenterStart: 29-94-7228HtecufdcoT[facility]edo Hospital CenterStart: 63-06-8159XwlsopfiuT[facility]edo Hospital CenterStart: 32-66-6375Nuxwc chemistry [facility] CenterStart: 47-43-4711HoqzqqpbeBarnesville Hospitaltart: 15-68-1992Jnxsdtk microbial cultureBarnesville Hospitaltart: 78-76-2846Kjblp culture for bacteria, including anaerobic screen [facility]: 38-60-0569AihxalvkuBarnesville Hospitaltart: 21-12-0301TzmutrfdoT[facility]edo Hospital CenterStart: 10-07-2022 [facility]: 43-82-2600TnwoywmngBarnesville Hospitaltart: 79-82-5857Lxujwvrgunuxfe of prophylactic treatmentBarnesville Hospitaltart: 04-29-3552Kpqjgizs to infectious diseases physicianBarnesville Hospitaltart: 19-81-0779Qhqbkhvv admission [facility]: 26-12-2064Ijotdrbq to cnc milling machine operator [facility]: 03-52-1754Djcsmaqv to vascular surgeon [facility]: 61-64-6994Cvruilhq to quality review specialist [facility]: 09-10-2022 End: 79-53-6520IuyrqoavzBarnesville Hospitaltart: 84-41-8249Bfozbvsoe of Infusion Device into Superior Vena Cava, Percutaneous ApproachBarnesville Hospitaltart: 15-54-3605Ywcolmxh to urologistBarnesville Hospitaltart: 29-09-8081Thhkblqv to podiatristMercer County Community Hospital Start: 69-14-4885Apwglpuj to infectious diseases [facility]ertart: 56-55-0967Nrvctpxi to nephrologistBarnesville Hospitaltart: 23-33-0954Qjnytnji admissionBarnesville Hospitaltart: 68-18-0462MdenyhwebBarnesville Hospitaltart: 08-09-2022 [facility]: 75-57-1369TdfcvzlwkBarnesville Hospitaltart: 75-73-3404FhhdbozfcBarnesville Hospitaltart: 07-19-2022 [facility]: 70-52-9898Zdsjvcrq identified in Blood by CultureBlood CultureBarnesville Hospitaltart: 23-76-5280Fhcvl culture for bacteria, including anaerobic screenBlood CultureBarnesville Hospitaltart: 26-01-5165GvsasviuqBarnesville Hospitaltart: 41-89-4070PvwnxithmBarn[facility]ville Hospitaltart: 81-61-9154RyuxkdfkdBarnesville Hospitaltart: 06-17-2022 End: 55-46-3956QwpjrglmmBarnesville Hospitaltart: 71-78-7632ZngnzalvyBarnesville Hospitaltart: 35-24-9401PoorkovhsBarnesville Hospitaltart: 75-84-5010MmrivvpthBarn[facility]ville Hospitaltart: 05-09-2022 End: 22-72-3793YmmegvxlqBarnesville Hospitaltart: 46-06-3396YmnamnkbnBarnesville Hospitaltart: 04-16-2022 End: 50-98-4588OmwvdkdbaBarnesville Hospitaltart: 58-58-1737DmnrrllqmBarnesville Hospitaltart: 48-64-2568MsjvmgmwuBarnesville Hospitaltart: 20-24-1381PYPMMXZ DIRECTIVE DISCUSSIONADVANCE DIRECTIVE DISCUSSIONPike Community Hospitaltart: 69-34-7286HJQEWMXXAD ASSESSMENTDEPRESSION ASSESSMENTPike Community Hospitaltart: 30-85-9285AwaoococyBarnesville Hospitaltart: 03-21-2022 End: 25-99-6531CzillgcmcBarnesville Hospitaltart: 18-32-9309LosnizoldBarnesville Hospitaltart: 17-21-1713FSLQLVHLD, Provider: Brandan Heller, Status: Pen, Time: 1:00 [facility]URGATRI[facility], Provider: Brandan Heller, Status: Pen, Time: 1:00 [facility] 250 DO Work Phone: Start: 97-78-2623WamhzbcebMercer County Community Hospital Start: 78-16-2832Ggjdwfcoedfh myocardial perfusion stress studyNM mateo perf SPECT rest & strBarnesville Hospitaltart: 07-14-8410HDIEL Heart perfusion at rest and W stress and W radionuclide IVFMercy Health Anderson Hospitaltart: 93-38-5733EzrrpvqbkBarnesville Hospitaltart: 02-11-2022 [facility]: 70-02-3171KihlzeljeBarnesville Hospitaltart: 22-59-0516WcfcbylnrBarnesville Hospitaltart: 01-15-2022 CystoscopyBarnesville Hospitaltart: 86-03-8152DtcuitywpBarnesville Hospitaltart: 50-17-2632FmtxbkiehBarnesville Hospitaltart: 90-39-8469YnliltbmyBarnesville Hospitaltart: 80-54-6108Kznrltacv vaccinationINFLUENZA (#1)[facility]: 96-27-8866Zhgvlhweno Recurring AnemiaToledo Hospital Ctr-Cancer CenterStart: 86-15-0769SmusgjjhiToledo Hospital Ctr Work Phone: Start: 43-45-0113Wkrgoxmpefgvxqw of bilateral kidneys US renal BIFMercy Health Anderson Hospitaltart: 12-05-2021 End: 26-61-8370Glczepl encounter procedureDeparted [facility] CampusStart: 12-04-2021 End: 42-71-9852Ribmccxpr department patient visitDeparted EmergencyToledo Hospital Ctr-Emergency RoomStart: 14-83-9267SbuemeiqbBarnesville Hospitaltart: 45-02-8545RcrbkrbqfBarnesville Hospitaltart: 11-21-2021 [facility]: 28-37-5651Urmeufpx to clinical inkjet operator [facility]: 52-68-1939Gleuagix to urologistBarnesville Hospitaltart: 52-03-8693Hhsplpkpz of peripherally inserted central catheterBarnesville Hospitaltart: 48-73-5484Afefnabu to infectious diseases physicianBarnesville Hospitaltart: 11-16-2021 [facility]: 50-34-9863Zqgyszneegehgl of prophylactic treatmentBarnesville Hospitaltart: 49-39-8472Yujrsdxz admission [facility]: 62-68-9705Fyasdtxh to cnc milling machine operator [facility]: 89-79-8537Rxzkmkzr to quality review specialist [facility]: 59-74-6971Aeqbyqrw to vascular surgeon [facility]: 16-90-4089Rvmswfzz of Bladder with Drainage Device, Via Natural or Artificial OpeningDrainage of Bladder with Drainage Device, Via Natural or Artificial OpeningToledo Hospital CenterStart: 52-30-6189Krkmfzjnz of Intraluminal Device into Inferior Vena Cava, Percutaneous ApproachInsertion of Intraluminal Device into Inferior Vena Cava, Percutaneous ApproachToledo Hospital CenterStart: 56-05-5052RnglvbozkToledo Hospital CenterStart: 10-23-2021 End: 89-25-7078KnfxkeljzToledo Hospital CenterStart: 07-27-5348AthswtsvdToledo Hospital CenterStart: 77-77-4201AaesezdjnToledo Hospital CenterStart: 11-00-2163OewlyvwcrToledo Hospital CenterStart: 68-73-6824TuxlnotajToledo Hospital CenterStart: 50-12-4585DajcxmxivToledo Hospital CenterStart: 15-40-7032WsptjkdeoToledo Hospital CenterStart: 22-62-5099OouxmwzepToledo Hospital CenterStart: 08-31-2021 End: 64-73-7055MafiapwuvToledo Hospital CenterStart: 08-31-2021 End: 20-23-9521DgtthrxitToledo Hospital CenterStart: 63-57-8715MMJPQKLH SCREEN DIABETES SCREENPike Community Hospitaltart: 40-44-7519EdqdifrdzToledo Hospital CenterStart: 52-94-8098IqydtaekjToledo Hospital CenterStart: 06-21-2021 [facility] CenterStart: 09-03-5282HrmfldwweToledo Hospital CenterStart: 35-72-1825MfrrzmpqbToledo Hospital CenterStart: 05-30-2021 [facility] CenterStart: 67-05-8354JxwjumtriToledo Hospital CenterStart: 60-84-9142YiqbjnqkmToledo Hospital CenterStart: 93-87-9934HDFDI- 19 VACCINE (4 - Booster for Moderna series)COVID-19 VACCINE (4 - Booster for Moderna series)[facility]: 57-64-5560JldwiaomrToledo Hospital CenterStart: 32-46-9825HxpywfswsT[facility]edo Hospital CenterStart: 02-22-2021 [facility] CenterStart: 11-59-8915YhfujspfwToledo Hospital CenterStart: 49-21-5928KovhpajrsT[facility] Hospital CenterStart: 10-13-2020 [facility] CenterStart: 10-25-7411EcrvrrmdqToledo Hospital CenterStart: 29-14-7831RcuxvnvftToledo Hospital CenterStart: 09-21-2020 [facility] CenterStart: 71-10-9316GunfzhjtjToledo Hospital CenterStart: 00-99-8187GisnzrhplToledo Hospital CenterStart: 08-25-2020 [facility] CenterStart: 15-80-7861DLADH CREATININESERUM CREATININEPike Community Hospitaltart: 48-21-1446Hmgy Risk ScreeningFall Risk ScreeningFirstHealth Moore Regional Hospitaltart: 45-14-1508PEDAGZQPFZWO: 65+ (1 - PCV) PNEUMOCOCCAL: 65+ (1 - PCV)[facility]: 67-42-1546Jtxnsrchazmyhk of varicella zoster vaccineZoster (Shingles) Vaccine (1 of 2)[facility]: 19-89-8235VQJCTYSH VACCINE (1 of 2)SHINGRIX VACCINE (1 of 2) [facility]: 71-03-2181OTZZXDUHY (FIT-DNA)COLOGUARD (FIT-DNA)[facility]: 44-88-0819FzpkwnovedqXEWSQMMPKJWXakanetox ClinicStart: 1995 COLORECTAL CANCER SCREENINGCOLORECTAL CANCER SCREENINGPike Community Hospitaltart: 49-29-1057FK COLONOGRAPHYCT COLONOGRAPHYPike Community Hospitaltart: 07-64-6169IOUST OCCULT BLOODFECAL OCCULT BLOODPike Community Hospitaltart: 34-32-1180RFVRYZSZZWTSI SIGMOIDOSCOPYPike Community Hospitaltart: 52-48-1178RJOPF SCREENLIPID SCREENPike Community Hospitaltart: 13-72-4990HEeT,Tdap and Td Vaccines (1 - Tdap)DTaP,Tdap and Td Vaccines (1 - Tdap)[facility]tart: 02-42-8761Idold microalbumin profileDTAP,TDAP,TD (1 - Tdap)[facility]: 07-53-0599Ulesn BMI ScreeningAdult BMI ScreeningFirstHealth Moore Regional Hospitaltart: 12-27-4727UCPDPN PCP TEAM CHRONIC DISEASE VISITANNUAL PCP TEAM CHRONIC DISEASE VISITPremier Health Upper [facility] Start: 55-96-6873Qafgjglhp B surface antibody levelLDL CHOLESTEROLPike Community Hospitaltart: 98-69-5657TUZYNRUGR C SCREENINGHEPATITIS C SCREENINGPike Community Hospitaltart: 20-49-2526Qpafmtnfvx ScreeningDepression ScreeningFirstHealth Moore Regional Hospitaltart: 99-20-6835Nwqwqql ScreeningTobacco ScreeningCleveland Clinic [facility] Start: comp foot exam completedDIABETIC FOOT EXAMPremier Health Upper Valley Medical Center Start: 31-53-6233Vkxuhgbsw C antibody, confirmatory testDILATED RETINAL EXAM [facility]: 40-61-5552VHQKKPYLGBOS: 65+ (1 - PCV)PNEUMOCOCCAL: 65+ (1 - PCV)[facility]: 48-86-0164Nmzombrdhs A1c/Hemoglobin.total in Blood XHW3MYzezodrvuPike Community Hospitaltart: 86-63-3947PXQWI-19 VACCINE (#1)COVID-19 VACCINE (#1) [facility]: 02-52-0851BLPPYXPJW AORTIC ANEURYSM SCREENINGABDOMINAL AORTIC ANEURYSM SCREENINGPremier Health Upper Valley Medical CenterBacteria identified in Blood by Culture [facility] HospitalBacteria identified in Blood by Culture [facility] HospitalBacteria identified in Unspecified specimen by Aerobe cultureMercer County Community HospitalBasophils [#/volume] in Blood by Automated [facility] HospitalBasophils/100 leukocytes in Blood by Automated [facility] HospitalBlood chemistry [facility] metabolic 1999 panel - Serum or [facility] Work Phone: Comprehensive metabolic 1999 panel - Serum or Plasma [facility] HospitalCom[facility] metabolic 1999 panel - Serum or [facility] 1999 panel - Serum or [facility] 2000 panel - Serum or [facility] metabolic 2000 panel - Serum or [facility] metabolic 2000 panel - Serum or [facility] Comprehensive metabolic 2000 panel - Serum or [facility] metabolic 1999 panel - Serum or [facility] metabolic 2000 panel - Serum or PlasmaMercer County Community HospitalComprehensive metabolic 2000 panel - Serum or Plasma [facility]Com[facility] metabolic 2000 panel - Serum or PlasmaMercer County Community HospitalComprehensive metabolic 2000 panel - Serum or PlasmaMercer County Community HospitalComprehensive metabolic 1999 panel - Serum or [facility] 1999 panel - Serum or [facility] metabolic 1999 panel - Serum or [facility] Comprehensive metabolic 2000 panel - Serum or PlasmaMercer County Community HospitalComprehensive metabolic 1999 panel - Serum or PlasmaMercer County Community HospitalComprehensive metabolic 1999 panel - Serum or PlasmaMercer County Community HospitalComprehensive metabolic 1999 panel - Serum or Plasma [facility] HospitalCom[facility] metabolic 1999 panel - Serum or [facility] CenterEosinophils [#/volume] in [facility] HospitalEosinophils/100 leukocytes in Blood by Automated count [facility] HospitalErythrocyte distribution width [Ratio] by Automated countMercer County Community HospitalErythrocytes [#/volume] in Blood [facility] HospitalFerritin [Mass/volume] in Serum or Plasma [facility] HospitalGlucose measurement estimated from glycated hemoglobinMercer County Community HospitalHematocrit [Volume Fraction] of Blood [facility] HospitalHemoglobin [Mass/volume] in [facility] HospitalHemoglobin A1c/Hemoglobin.total in BloodMercer County Community HospitalHescripps mercy hospital A virus antibody, IgM [facility] HospitalHeclinton [facility] hospitaltis B core antibody measurement, IgM [facility] HospitalHesc[facility] hospital B virus surface Ab [Presence] in SerumMercer County Community HospitalHescripps mercy hospital B virus surface Ag [Presence] in Serum or Plasma by ImmunoassayMercer County Community HospitalHeclinton county hospitaltis C virus IgG Ab [Presence] in Serum or Plasma by ImmunoassayMercer County Community HospitalHescripps mercy hospital C virus RNA [log units/volume] (viral load) in Serum or Plasma by JAYMIE with probe detectionMercer County Community HospitalHeclinton county hospitaltis C virus RNA [Units/volume] (viral load) in Serum or Plasma by JAYMIE with probe detectionMercer County Community Hospital End: 80-91-9812BG NEPH TUBE CHANGEIR NEPH TUBE CHANGE Radiology Routine Hydronephrosis, unspecified hydronephrosis type Every 2 months for 6 Occurrences starting 05/08/2022 until 05/08/2023[facility] Work Phone: Comment on above:Every 2 months for 6 Occurrences starting 05/08/2022 until 05/08/2023Leukocytes [#/volume] corrected for nucleated erythrocytes in Blood by Automated counMercer County Community HospitalLeukocytes [#/volume] in BloodMercer County Community HospitalLymphocytes [#/volume] in Blood by [facility] Lymphocytes/100 leukocytes in Blood by Automated [facility] HospitalMCH [Entitic mass] by [facility] MCHC [Mass/volume] by Automated [facility] HospitalMCV [Entitic volume] by Automated [facility] HospitalMonocytes [#/volume] in Blood by [facility] Monocytes/100 leukocytes in Blood by Automated [facility] HospitalNeutrophils [#/volume] in Blood by Automated [facility] HospitalNeutrophils/100 leukocytes in Blood by Automated [facility] HospitalNucleated erythrocytes [Presence] in Blood by Automated [facility] HospitalPatient EducationToledo Hospital Ctr Work Phone: Patient referralToledo Hospital Ctr Work Phone: Platelet mean volume [Entitic volume] in Blood by Automated [facility] HospitalPlatelets [#/volume] in Blood [facility] HospitalClemarion hospital ClinicAsc[facility] Immunizations Immunization DateImmunizationNotesCare IvmqeoalPehbzmqw76-98-9971qflvohx toxoid, reduced diphtheria toxoid, and acellular pertussis vaccine, adsorbedGeorge Iannantuono DO Work Phone: [facility]10-17-2022influenza virus vaccine, unspecified formulationKathy Lue [facility] 511410-17-2022influenza, high dose seasonal, preservative-freeDarrin R Bunting Work Phone: [phone]-ErrewEssentia Health-[facility] 250 DO Work Phone: Comment on above:Series:19-34-7864ZDJI-CoV-2 (COVID- 19) mRNA-1273 vaccineKathy Lue [facility] 511410-26-2021influenza, unspecified formulationKathy Lue [facility]06-01-2021SARS-CoV-2 (COVID-19) mRNA-1273 vaccineKathy Lue [facility]04-29-2021SARS-CoV-2 (COVID-19) mRNA-1273 vaccineKathy Lue [facility] Payers DatePayer CategoryPayerPolicy [id number] Health [id number]-isk [id number] 2018Medicaid [id number] [id number] [id number].[facility] [id number] [id number] [id number] [id number] 2..840.1.710175.3.57[id number] 2..840.1.566397.3.579.2.02[id number] 2.0.1.992373.3.57[id number] 2.0.1.678504.3.579.2.2[id number] 2.840.1.915856.3.57[id number] 2.0.1.466582.3.57[id number] 2.840.1.056508.3.579.2.789VbmfjiwFeovhty36170003 2.840.1.034085.3.579.2.107Dtxmjgd70632588 2.840.1.048998.3.579.2.531 [id number] 2.840.1.697731.3.579.2.091Autyxcl62363571 2.840.1.477529.3.579.2.667Bhjsmst25851334 2.840.1.257195.3.579.2.531 Oszpjtx78526882 2.840.1.882119.3.579.2.691Jwnphnh02900746 2..840.1.819723.3.579.2.458Skbynwc58851621 2.16.840.1.071787.3.579.2.531 [id number] 2.16.840.1.470257.3.579.2.577Utlwkrj76649977 2.16.840.1.378954.3.579.2.847Ghkxtsx92530596 2.16.840.1.773355.3.579.2.531 Vhkxqdm95468910 2.16.840.1.540528.3.579.2.503Flyzogt53715379 2.16.840.1.361167.3.579.2.024Qhxjgoo16850680 2.16.840.1.731635.3.579.2.531 Huzxdbi55584094 2.16.840.1.328028.3.579.2.532Yzhdapl21589994 2.16.840.1.290764.3.579.2.228Wkrwwyh62746263 2.16.840.1.592038.3.579.2.531 Mduytmv30447079 2.16.840.1.873881.3.579.2.531 Social History DateTypeDetailFacilityUnknown if ever smokedAugusta eInstruction by [employer] Other Start: 44-02-3160Lum Assigned At [facility] eInstruction by [employer] Other Start: 12-04-2021 End: 52-01-0094Rmmarwn smoking status NHISSmoker (finding)[facility]: 03-29-7309Wqx [facility]igned At [facility]: 11-19-2018 End: 39-69-3140Lfowklf smoking statusLight tobacco smoker (finding)[facility] EQO Start: 50-54-5476Dzbctmdq useCaffeine useEssentia Health-[facility] 250 DO Work Phone: Comment on above:a lot of pop;daily basis at home, none now at mcfp;1 pack every 3 days;Start: 08-08-2015 End: 19-43-4034Esrrrda smoking status NHISSmokes tobacco dailyPremier Health Upper Valley Medical Center History of tobacco useCigarette SmokerPike Community Hospitaltart: 17-60-4496Tnynmkp use and exposureSmokeless tobacco non-userPike Community Hospitaltart: 11-23-2021 Alcohol intakeCurrent drinker of alcohol (finding)[facility]: 59-74-1888Sgbtqxl Commentcouldn't get pain med's so I drink a lotPike Community Hospitaltart: 07-22-2859Eyp Assigned At BirthNot on filePremier Health Upper Valley Medical CenterTomanchester memorial hospital smoking status NHISTobacco smoking consumption unknownUTAH VALLEY [facility] HealthcareStart: 08-04-2024 End: 72-29-4625MxdZgdl (finding)[facility]: 09-14-2024 End: 55-34-6044IHFJ Follow upSDOH Follow upK[facility] Work Phone: Medical Equipment Procedure CodeEquipment CodeEquipment Original TextEquipment IdentifierDates Insertion, catheter, dialysis, tunneled, with imaging guidance ()[id number] FDAStart: 67-71-8525Lrscavnnldxk guidance for insertion of tunnelled dialysis catheter +[id number] FDAStart: 51-30-9141Ctyrcjqsol, with ureteral calculus manipulation and stent placement ()[id number] FDAStart: 66-85-6106Diwdmepvbm, with ureteral calculus manipulation and stent placement ()[id number] FDAStart: 55-70-2202Ziknswxr or revision of arteriovenous fistula()[id number] FDAStart: 67-96-4512Sippnubr or revision of arteriovenous fistulaSynthetic vascular graft()[id number] FDAStart: 01-13-2025 Goals DatePatient GoalDesired Activity/State Functional Status ImrlNrziioncfrSbpbjjUdncqlvx32-90-2144Xbeypltygx statusPatient at Baseline [facility] Work Phone: [phone] StatusN/AExec[facility]07-20-2023Functional statusPatient at BaselineKettering Health [facility] Work Phone: 1(992) 503-288606408621-02-2516Opcoytyzva statusPatient at Baseline [facility] Work Phone: [phone] statusPatient at Baseline [facility] Work Phone: [phone] statusPatient at Baseline [facility] Work Phone: [phone] StatusN/AExec[facility]03-03-2023Functional StatusN/A[facility]01-20-2023Functional StatusN/A [facility]08-17-2022Functional statusPatient at BaselineK[facility] Work Phone: [phone] statusFunctional Status Comment Pt has assistance with all care at nursing homeK[facility] Work Phone: Mental Status JgpePezvbyvhblKozgxcVwctnieg36-30-2690Atktujvwf functionPatient at Baseline [facility] Work Phone: [phone] functionPatient at Baseline [facility] Work Phone: [phone] functionPatient at Baseline [facility] Work Phone: [phone] functionPatient at Baseline [facility] Work Phone: [phone] functionPatient at Baseline [facility] Work Phone: [phone] functionCognitive Status Patient at BaselineK[facility] Work Phone: Clinical Notes 07-13-2015 to 01-04-2025 Note Date & TrtbWargJteeoofd74-78-1457 Evaluation note* Diagnosis Onset Date Resolution Status Admit Date End-stage renal disease on hemodialysis deletedSeptember 2024 9:16am [facility] Work Phone: 1(359) 805-613507-08-2025 Evaluation note* Diagnosis Onset Date Resolution Status Admit Date Clotted renal dialysis AV graft acuteJuly 2024 1:55pmDiabetesacuteJuly 2024 1:55pmDialysis AV fistula malfunctionacuteJuly 2024 1:55pmESRD (end stage renal disease) on dialysis acuteJuly 2024 1:55pmSecondary hyperparathyroidismacuteJuly 2024 1:55pmAnemia of renal diseasedeletedJuly 2024 1:55pm [facility] Work Phone: 1(991) 892-213606-10-2025 Discharge summary Author Julian Jones [facility] HospitalNote Date/TimeJune 2024 1:55pm[place] [address] Discharge Summary Signed Patient: Simon Lott MR#: [id number] : 1950 Acct:[id number] Age/Sex: 74 / M Adm Date: 5 Loc: Room: [address] [place] [address]: Julian Jones MD Copies to: Mervat Santiago, PRINT LINE INSPECTOR-C MD Estee Garrison, DO, RES~ Providers Date of Admission: 09/10/24 Date of Discharge: 09/14/24 Discharging Provider: Julian Jones Additional Discharging Provider: Estee Miles Primary Care Provider: Mervat Santiago Consults: 09/10/24 21:19 Consult to Occupational Therapy Routine Comment: Physician Instructions: Consult to OT for:: Evaluation and Treat Consult to Physical Therapy Routine Comment: Physician Instructions: Consult to PT for:: Evaluation and Treat 09/10/24 22:02 Consult to Nephrology Routine Comment: Consulting Provider: Olga Lidia Martin Has Provider Been Notified: Yes Date of Notification: 09/11/24 Time of Notification: 07:33 Reason for Consult: Dialysis Treatment 09/10/24 23:56 Consult to Podiatry Routine Comment: Consulting Provider: Nathaniel Alonso Reason For Exam: bilateral foot wounds Has Provider Been Notified: Yes Date of Notification: 09/11/24 Time of Notification: 07:54 09/12/24 10:21 Consult to Infectious Diseases Routine Comment: Consulting Provider: Riya Pitt Reason For Exam: diabetic foot infection Has Provider Been Notified: Yes Date of Notification: 09/12/24 Time of Notification: 10:29 Discharge Diagnosis (1) Foot drop, right: (2) Wound of foot: (3) Type 2 diabetes mellitus with peripheral neuropathy: (4) PAD (peripheral artery disease): (5) Type 2 diabetes mellitus with foot ulcer: Final Diagnosis Final Discharge Diagnosis: Type 2 diabetes and peripheral artery disease with peripheral neuropathy and diabetic foot wound infection as above Summary Hospital Course Hospital course: Mr. Lott is a 74yo male with a PMH of ESRD on HD, cirrhosis of liver, hepatitis C, CVA, PVD, BPH, T2DM, bilateral foot wounds that was sent to the emergency room from dialysis today for alteredmental status. Upon arrival to the ER, he was alert and oriented, but he did state that he had not been feelingwell for a few days. He had been dealing with nausea and diarrhea, but he denied fevers,chills, CP, and SOB. He smokes 1ppd, reports rare alcohol use, and denies other recreational drug use. CT of the abdomen and pelvis showed nonobstructing left nephrolithiasis, similardilatation of the intrarenal collecting system and proximal ureter on the left, liver cirrhosis, renal atrophy with focal scarring, no acute findings. There isdiverticulosis, no diverticulitis, no gallbladder abnormality identified. Chestx-ray showed no acute cardiopulmonary findings. CT of the head showed diffuse atrophy, decreased density of the white matter most consistent with chronic small vessel disease, no acute intracranial findings. CTA of the chest was negative for PE. EKG with sinus tachycardia at 103 bpm, incomplete RBBB, left anterior fascicular block. Initial labs showed CBC with a white blood cellcountof 23.4, H&H 9.9/28.9, CMP with a sodium 132, potassium 3.4, chloride 90, serum bicarb 33.4, BUN 31, creatinine 4.63, total bilirubin 3.2, AST 282. Troponin 302, repeat 279, total CPK 3135. Lipase 664. He was given 1 L saline bolus, Zofran. Blood cultures were drawn and he was also medicated with meropenem and vancomycin. He was also in the emergency room the day prior to admission with nausea and malaise. His home health nurse had expressed concerns about infection of chronic foot wound. At that ER visit, CBC was 25.1, H&H 10/27.4, CMP with a sodium 130, chloride 88, serum bicarb 33.2, BUN 53, creatinine 7.71, total bilirubin 2.1, AST 308. His lipase was 1167. No complaints ofabdominal pain, was given Zofran and discharged to home. During this re-presentation, he was admitted as inpatient to the medical floor with telemetry for elevated troponin and infection. Troponin trended flat and patient was noted to be possibly dehydrated with nausea and diarrhea followed by armen soni. No CP or SOB andEKG was with changes. Initially, patient was very non-interactive and appeared to feel very unwell. He was continued on Vancomycin and Meropenem for possible foot wound infection and stool was tested for C. diff and cultured which were both normal. He was seen by podiatry who did a bedside debridement, but did not recommend further ORdebridement. He was also seen by infectious disease and antibiotics were maintained broad spectrum while culture and sensitivities were pending. On day #2 of hospitalization, patient was much more interactive and talkative saying that he felt significantly better from admission. He started having improvementin GI symptoms and denied any new issues. PVR was unable to be read due to incompressibility of the vessels. Patient was feeling much better; however, hisblood pressure was very marginal- 80s/50s. Blood cultures had no growth to 3 days, and upon wound culture results, ID recommended switching patient to oral Levaquin. Patient's blood pressure somewhat improved, and he remained asymptomatic, so he was discharged with PCP, podiatry, and nephrology/dialysis follow ups. Patient has multiple complex medical issues as listed above and others that are not listed. All appear to be stable at this time. Patient is feeling significantly better and feeling comfortable with this plan of discharge. I do not have any clear or strong clinical justification to extend inpatient hospitalization. Patient however will require close and the frequent monitoringas well as additional work-up, investigation and therapeutic intervention that could take place from this point on post discharge. That is to prevent relapse,decompensation, rehospitalization and other medical implication s. Outpatient follow up as directed for continuity of care. Verbal and written discharge instructions will be provided to the patient. Attending Physician Attestation: I personally reviewed the history, performed the laureano elements of the exam, formulated the plan of care and confirmed the written note. I agree with the findings and plan as documented in this note and have edited it if needed to reflect my findings and plan. Julian Ceron MD Time spent discussing smoking cessation with patient: 3 to 10 minutes Condition Condition at Discharge: Stable Status at Discharge Functional status at discharge: wheelchair bound Overall status at discharge: patient is back to baseline Time Spent with Patient Time spent providing/coordinating discharge services (# min): 40 Discharge Plan Discharge Plan Patient Disposition: Home Health Services Activity: Ambulate as Tolerated Comment: WBAT to LLE with use of surgical shoe Diet: Diabetic and Renal Additional Instructions: Continue hemodialysis treatments as before Continue to monitor glucose levels as before Dietitian recommendations: *Chancero, 1 container, daily with meal Home health to manage: -RN/Aide to eval and treat -Monitor VS per protocol -High fall risk precautions -Perform podiatry assessments -Monitor for increased signs of infection -Assist with medication management and education -Continue hemodialysis treatments as before -Continue to monitor glucose levels as before -Offload heels and reposition every 2 hours -Wound care daily: -Vashe wet to dry to B/L LE with 4x4s, ABD, kerlix, JESSENIA. -Offload B/L LE heels and lateral foot at all times with pillows or prevalon boots -WBAT to LLE with use of surgical shoe -Dietitian recommendations: *Nepro, 1 container, daily with meal Instructions: Know your Meds Prescriptions: New levofloxacin 500 mg Tablet 500 mg PO Q48HR 7 Days Qty: 4 0RF midodrine 5 mg tablet 5 mg PO TID Qty: 30 0RF Rx Instructions: do not give last dose of day after 6PM or within 4 hrs of bedtime Continued insulin aspart U-100 [Novolog U-100 Insulin aspart] 100 unit/mL Solution See Protocol SUBCUT MERGED WITH [facility] Protocol: Custom Scale - Custom (Blank) Condition: [...] unless approved by prescriber* Rx Instructions: 151-200 0 units 201-250 2 units 251-300 4units 301-350 6 units 351-400 8 units 401-450 10 units over 400 call doctor duloxetine 60 mg capsule,delayed release(DR/EC) 60 mg PO QHS atorvastatin 10 mg tablet 10 mg PO HS clopidogrel 75 mg tablet 75 mg PO DAILY melatonin 5 mg Tablet 5 mg PO HS PRN (Reason: Insomnia) folic acid 1 mg tablet 1 mg PO DAILY Patient Comments: take 1 tablet by mouth once daily polyethylene glycol 3350 [Miralax] 17 gram Powder In Packet 17 g PO DAILY Qty: 0 0RF ammonium lactate 12 % lotion 1 applic TOPICAL DAILY ferrous sulfate [FeroSul] 325 mg (65 mg iron) tablet 325 mg PO DAILY ergocalciferol (vitamin D2) 50,000 unit Tablet 50,000 unit PO QWEEK ascorbic acid (vitamin C) [Vitamin C] 500 mg Tablet 500 mg PO DAILY docusate sodium 100 mg capsule 100 mg PO DAILY PRN (Reason: constipation) calcium acetate(phosphat bind) 667 mg capsule 667 mg PO TIDWM gabapentin 300 mg capsule 300 mg PO HS insulin degludec [Tresiba FlexTouch U-200] 200 unit/mL (3 mL) insulin pen 45 unit SUBCUT DAILY Discontinued tamsulosin [Flomax] 0.4 mg Capsule 0.4 mg PO BID furosemide 40 mg tablet 40 mg PO BID metoprolol succinate 25 mg tablet extended release 24 hr 12.5 mg PO DAILY Other Ambulatory Orders: Initiate Home Health (Routine) Timeframe: 20240914 Location: Determined by Patient Ordered By: Julian Jones Follow Up: [facility] [Other] - 09/28/24 9:30 am (Previously scheduled appointment.) Mervat Santiago NP-C [Primary Care Provider] - 09/30/24 5:00 pm (You have been scheduled for a follow up appointment for the following date and time, please call to reschedule if needed.) Continuity of Care Document Health Concerns: A [facility] screening has identified you as FRAIL or AT RISK FOR FRAILTY. This puts you at a higher risk for infection, illness, falls,and other injuries. Here are four ways to help you reduce your risk of frailty: 1. IDENTIFY EARLY SIGNS OF FRAILTY ? Discuss contributing factors and concerns with your doctor 2. BE ACTIVE ? Walking and light strengthening exercises will help reduce weakness 3. EAT WELL ? Aim for three healthy meals a day that are high in protein 4. THINKPOSITIVE ? Keep your mind active by being sociable and continuing to learn References: Stay Strong:Four Ways to Beat the Frailty Risk https://www.[facility].org/health/lofyxham-nxo-mjlhpcjosi/st hg-iwndsf-tmkx- onny-vc-xcez-ilw-oxssbht-dktu Exam Physical Exam Vital Signs: Temp Pulse Resp BP Pulse Ox O2 Del Method O2 Flow Rate 98.0 F 93 16 96/62 L 94 L Room Air 90 09/14/24 08:00 09/14/24 08:00 09/14/24 08:00 09/14/24 08:00 09/14/24 08:00 09/14/24 08:00 09/12/24 04:00 Narrative: Constitutional: no acute distress, nontoxic appearing HEENT: mucous membranes moist Heart: RRR, no murmurs, rubs, gallops Lungs: CTA b/l, no wheezes or rales Abdomen: soft, nontender, nondistended MSK: no joint swelling or erythema noted Extremities: feet wrapped in dressing, very thick and dry skin of feet Neuro: awake, alert, and oriented x3, no focal neurological deficits noted Psych: appropriate and cooperative Diagnostic Studies Completed and Pending Studies Pending studies at discharge: 09/10/24 17:30 Urinalysis Stat 09/10/24 18:50 Blood Culture Stat 09/10/24 21:19 Drug Screen,Urine [TOX] Routine 09/15/24 05:00 Complete Blood Count Auto Diff IN AM 09/16/24 05:00 Complete Blood Count Auto Diff IN AM 09/17/24 05:00 Complete Blood Count Auto Diff IN AM 09/18/24 05:00 Complete Blood Count Auto Diff IN AM 09/19/24 05:00 Complete Blood Count Auto Diff IN AM 09/20/24 05:00 Complete Blood Count Auto Diff IN AM Preliminary micro results at discharge 09/10/24 18:50 Blood Culture - Preliminary Blood - Left Hand No Growth 3 Days 09/10/24 17:59 Blood Culture - Preliminary Blood - Left Forearm No Growth 3 Days Labs on day of discharge: 09/14/24 06:48: POC Glucose 113 09/14/24 06:42: Corrected WBC 14.1 H, Uncorrected WBC Count 15.7 H, RBC 2.93 L, Hgb 9.8 L, Hct 30.7L, MCV 104.7 H, MCH 33.5, MCHC 32.0 L, RDW 17.6 H, Plt Count 289, MPV 10.1, Neut % (Auto) N/A, Lymph % (Auto) N/A, Nash % (Auto) N/A, Eos % (Auto) N/A, Baso % (Auto) N/A, Nucleat RBC Rel Count N/A, Neut # (Auto) N/A, Lymph # (Auto) N/A, Nash # (Auto) N/A, Eos # (Auto) N/A, Baso # (Auto) N/A, Lymphocytes % 21, Monocytes % 13 H, Eosinophils % 6 H, Metamyelocytes % 1 H, Segmented Neutrophils 59, Nucleated RBCs/100 WBC 18 H, Platelet Estimate Normal, Large Platelets Slight, Plt Morphology Comment N/A, RBC Morphology N/A, Polychromasia Moderate, Anisocytosis Moderate, Macrocytosis Slight, Target Cells Slight, Acanthocytes (Spur) Slight, Schistocytes Slight, PHA Creatinine Clear 10.23, Sodium 132L, Potassium 4.0, Chloride 98, Carbon Dioxide 23.2, Anion Gap 14.8, BUN 46 H, Creatinine 7.98 H D, Est GFR (CKD-EPI) 6.533, Glucose 94, Calcium 8.6, Total Bilirubin 1.1 H, AST 58 H, ALT 12, Alkaline Phosphatase 104, Total Protein 8.2, Albumin 3.5, Globulin 4.7, Albumin/Globulin Ratio 0.7 09/13/24 20:36: POC Glucose 174 09/13/24 16:19: POC Glucose 216 09/13/24 13:49: POC Glucose 197 Documented By: Julian Jones MD 09/14/24 10 21 Signed By: <Electronically signed by Julian Jones MD> 09/14/24 1355 <Electronically signed by DO RES Estee Miles> 09/14/24 1131 [facility] Work Phone: [phone] 426-897506-10-2025 Progress note Author Johan MonterrosoOhio State East HospitalNote Date/TimeJune 2024 12:58[place] [address] Nephrology Progress Note Signed Patient: Simon Lott MR#: [id number] : 1950 Acct:[id number] Age/Sex: 74 / M Adm Date: 5 Loc: Room: [address] [place] [address] Type: ADM IN Attending Dr: Julian Jones MD Copies to: ~ Date of Service: 09/14/2024 Subjective Subjective Narrative: This is a 74-year-old male with a medical history of ESRD on HD, liver cirrhosis, hepatitis C, chronic left-sided hydronephrosis, nephrolithiasis, CVA,PAD, BPH, T2DM, bilateral diabetic foot ulcer presented to the emergency room for change in mental status. Patient has a ESRD due to the diabetic nep hropathyand hypertensive nephrosclerosis and currently goes to the [facility] dialysis unit 3 times a week on MWF schedule. He currently has AV fistula as a dialysis access and has been on dialysis sinceJuly 2023. On evaluation in emergency room patient was found to have a leukocytosis and was given empiric ertapenem for possible sepsis. He had multiple imaging done including CTA abdomen pelvis which showed no acute findings or evidence of PE. He also had a CT head which was negative. Patient chest x-ray was also negative for any acute finding. Nephrology is consulted for ESRD management duringthe hospital stay. Interim history He had full hemodialysis yesterday with no events. Patient was on meropenem and vancomycin however blood culture showed no growth. Antibiotics was stopped. Wound culture showed Staph aureus E. coli and Proteus however he was seen by ID and there is no evidence of active infections. Antibiotics was stopped. Patient denies any more diarrhea. No nausea or vomiting. C. difficile was negative Exam Physical Exam Vital Signs: Temp Pulse Resp BP Pulse Ox O2 Del Method O2 Flow Rate 36.7 C 93 16 96/62 L 94 L Room Air 90 09/14/24 08:00 09/14/24 08:00 09/14/24 08:00 09/14/24 08:00 09/14/24 08:00 09/14/24 08:00 09/12/24 04:00 Narrative: General: Looks ill and older than [...] alert oriented x3. No focal deficits Extremity. Patient has a chronic lower extremity edema. Both feet wrapped withdressing. Left foot s/p TMA with reported full-thickness ulceration on the plantar surface. Skin: No skin rash. Objective Intake and Output I&O: Intake & Output 09/11/24 09/12/24 09/13/24 09/14/24 23:59 23:59 23:59 23:59 Intake Total 200 / 200 600 / 600 1370 / 1370 300 / 300 Output Total 0 / 0 2443 / 2443 0 / 0 Balance 200 / 200 600 / 600 -1073 / -1073 300 / 300 Weight 94.7 kg 98.5 kg 99.5 kg 99.4 kg Meds and Allergies Meds: Active Medications Acetaminophen (Acetaminophen 325 Mg Tablet) 650 mg PO Q6HR PRN PRN Reason: Pain Scale 1 - 3 or fever Stop: 09/10/25 21:18 Ammonium Lactate (Ammonium Lactate 12% Lot 226 Gm Bottle) 1 applic TOPICAL DAILY [facility] Stop: 09/11/25 08:59 Last Admin: 09/14/24 08:54 Dose: 1 applic Clopidogrel Bisulfate (Clopidogrel Bisulfate 75 Mg Tablet) 75 mg PO DAILY [facility] Stop: 09/11/25 08:59 Last Admin: 09/14/24 08:54 Dose: 75 mg Darbepoetin Romel (Darbepoetin Romel In Polysorbat 40 Mcg/Ml Vial) 40 mcg IV- PUSHWe@1000 JULIANN; Protocol Stop: 09/15/25 09:59 Dextrose (Dextrose 50% In Water 25 Gm/50 Ml Syringe) 0 gm IV-PUSH PRN PRN PRN Reason: Hypoglycemia Stop: 09/10/25 22:29 Docusate Sodium (Docusate 100 Mg Capsule) 200 mg PO BID PRN PRN Reason: Constipation Stop: 09/13/25 08:45 Last Admin: 09/13/24 21:45 Dose: 200 mg Duloxetine HCl (Duloxetine 30 Mg Capsule.) 60 mg PO QHS [facility] Stop: 09/11/25 21:59 Last Admin: 09/13/24 21:45 Dose: 60 mg Ferrous Sulfate (Ferrous Sulfate 324 Mg Tablet.) 324 mg PO DAILY [facility] Stop: 09/11/25 08:59 Last Admin: 09/14/24 08:54 Dose: 324 mg Gabapentin (Gabapentin 300 Mg Capsule) 300 mg PO QHS [facility] Stop: 09/11/25 21:59 Last Admin: 09/13/24 21:45 Dose: 300 mg Glucose (Dextrose 40% Gel 15 Gm Tube) 0 gm PO PRN PRN PRN Reason: Hypoglycemia Stop: 09/10/25 22:29 Heparin Sodium (Porcine) (Heparin 10,000 Unit/10 Ml Vial) 3,000 unit IV PRN PRN PRN Reason: Dialysis Stop: 09/13/25 09:08 Last Admin: 09/13/24 09:51 Dose: 3,000 unit Heparin Sodium (Porcine) (Heparin 10,000 Unit/10 Ml Vial) 1,500 unit IV PRN PRN PRN Reason: Dialysis Stop: 09/13/25 09:08 Last Admin: 09/13/24 09:51 Dose: 1,500 unit Sodium Chloride (0.9% Sodium Chloride 1,000 Ml) 1,000 mls @ 0 mls/hr MISCELLANE.Q0M PRN PRN Reason: Dialysis Stop: 09/13/25 09:08 Last Infusion: 09/13/24 09:52 Dose: Infused Insulin Aspart (Insulin Aspart 300 Units/3 Ml) 0 units SUBCUT TID.WM.HS [facility]; Protocol Stop: 09/11/25 07:59 Last Admin: 09/14/24 08:54 Dose: Not Given Insulin Glargine (Insulin Glargine 300 Units/3 Ml Insuln.Pen) 36 units SUBCUT DAILY [facility] Stop: 09/11/25 12:29 Last Admin: 09/14/24 08:54 Dose: 36 units Levofloxacin (Levofloxacin 500 Mg Tablet) 500 mg PO Q48HR [facility] Melatonin (Melatonin 5 Mg Tablet) 5 mg PO HS PRN PRN Reason: Insomnia Stop: 09/11/25 00:03 Last Admin: 09/12/24 21:27 Dose: 5 mg Metoprolol Succinate (Metoprolol Succinate 25 Mg Tab.Er.24h) 12.5 mg PO DAILY [facility] Stop: 09/11/25 12:29 Last Admin: 09/14/24 08:54 Dose: 12.5 mg Ondansetron HCl (Ondansetron 4 Mg/2 Ml Vial) 4 mg IV-PUSH Q8H PRN PRN Reason: Nausea And Vomiting Stop: 09/10/25 21:18 Oxycodone/Acetaminophen (Oxycodone/Acetaminophen 5-325 Mg Tablet) 1 tab PO Q4H PRN PRN Reason: Pain Scale 4 - 7 Prochlorperazine Edisylate (Prochlorperazine Edisylate 10 Mg/2 Ml Vial) 5 mg IMQ4H PRN PRN Reason: Nausea And Vomiting Stop: 09/10/25 21:18 Sodium Chloride (Sodium Chloride 0.9 % 10 Ml Syringe) 0 ml IV-PUSH PRN PRN PRN Reason: Flush Stop: 09/10/25 17:16 Last Admin: 09/10/24 20:16 Dose: 10 ml Sodium Chloride (Sodium Chloride 0.9 % 10 Ml Syringe) 0 ml IV-PUSH PRN PRN PRN Reason: Flush Stop: 09/13/25 09:08 Last Admin: 09/13/24 09:51 Dose: 10 ml Allergies codeine Allergy (Unknown, Verified 09/10/24 17:18) Unknown Reaction lisinopril Allergy (Unknown, Verified 09/10/24 17:18) Swelling of Lip/Tongue/Throat, anaphylaxis Results - Nephrology Labs 09/14/24 06:42 09/14/24 06:42 Labs: 09/14/24 06:42 BUN 46 H Creatinine 7.98 H D Albumin 3.5 Radiology Impressions Impressions - last 24 hours: Any impression(s) listed above is documentation that was entered by the reading physician into a diagnostic report(s) for Simon Lott. I have reviewed the report(s) and am incorporating any findings in the treatment plan of this patient where applicable. A&P - Nephrology Assessment/Plan (1) ESRD (end stage renal disease) on dialysis: Assessment/Problem Details: He has a ESRD due to diabetic nephropathy and hypertensive nephrosclerosis. He has been on dialysissince July 2023 and currently goes to the [facility] 3 times a week (2) Diabetic foot ulcer: Assessment/Problem Details: Patient currently on vancomycin and meropenem. WBCs count is improving. ID is following. Wound culture showed staph aureus, E. coli and Proteus Mirabillis (3) Anemia of renal disease: Assessment/Problem Details: His hemoglobin below the goal. He receives Aranesp with hemodialysis. (4) Hypertensive chronic kidney disease with stage 5 chronic kidney disease or end stage renal disease: Assessment/Problem Details: His blood pressure is controlled. He currently takes multiple antihypertensive occasions. (5) Type 2 diabetes mellitus with diabetic chronic kidney disease: Assessment/Problem Details: He has insulin-dependent type 2 diabetes mellitus and currently takes insulin Levemir at home. Plan * Patient had full hemodialysis yesterday for 4 hours with 2.5 L ultrafiltration. No edema. Blood pressure is well-controlled. He has normal potassium. Next hemodialysis will be tomorrow if he still in house. * Continue metoprolol 12.5 mg daily. Blood pressure drops with ultrafiltration, he is on midodrine during dialysis as needed. * Repeat hemoglobin is up again today 9.8 g/dL with no transfusion. Patient on darbepoetin romel 40 mcg weekly on Friday. Patient is able to eat and drink. He is willing to go home. Next hemodialysis will be tomorrow and the patient's current house otherwise can be done as outpatient at subsequent dialysis unit Documented By: Johan Taylor MD 09/14/24 1252 Signed By: <Electronically signed by MD Johan Taylor> 09/14/24 1254 [facility] Work Phone: [phone] 118-472206-10-2025 [place] [address] Discharge Summary Signed Patient: Simon Lott MR#: [id number] : 1950 Acct:[id number] Age/Sex: 74 / M Adm Date: 5 Loc: Room: [address] [place] [address]: Julian Jones MD Copies to: Mervat Santiago, PRINT LINE INSPECTORStefanieC MD Estee Garrison, , RES~ Providers Date of Admission: 09/10/24 Date of Discharge: 09/14/24 Discharging Provider: Julian Jones Additional Discharging Provider: Estee Miles Primary Care Provider: Mervat Santiago Consults: 09/10/24 21:19 Consult to Occupational Therapy Routine Comment: Physician Instructions: Consult to OT for:: Evaluation and Treat Consult to Physical Therapy Routine Comment: Physician Instructions: Consult to PT for:: Evaluation and Treat 09/10/24 22:02 Consult to Nephrology Routine Comment: Consulting Provider: Olga Lidia Martin Has Provider Been Notified: Yes Date of Notification: 09/11/24 Time of Notification: 07:33 Reason for Consult: Dialysis Treatment 09/10/24 23:56 Consult to Podiatry Routine Comment: Consulting Provider: Nathaniel Alonso Reason For Exam: bilateral foot wounds Has Provider Been Notified: Yes Date of Notification: 09/11/24 Time of Notification: 07:54 09/12/24 10:21 Consult to Infectious Diseases Routine Comment: Consulting Provider: Riya Pitt Reason For Exam: diabetic foot infection Has Provider Been Notified: Yes Date of Notification: 09/12/24 Time of Notification: 10:29 Discharge Diagnosis (1) Foot drop, right: (2) Wound of foot: (3) Type 2 diabetes mellitus with peripheral neuropathy: (4) PAD (peripheral artery disease): (5) Type 2 diabetes mellitus with foot ulcer: Final Diagnosis Final Discharge Diagnosis: Type 2 diabetes and peripheral artery disease with peripheral neuropathy and diabetic foot wound infection as above Summary Hospital Course Hospital course: Mr. Lott is a 74yo male with a PMH of ESRD on HD, cirrhosis of liver, hepatitis C, CVA, PVD, BPH, T2DM, bilateral foot wounds that was sent to the emergency room from dialysis today for alteredmental status. Upon arrival to the ER, he was alert and oriented, but he did state that he had not been feelingwell for a few days. He had been dealing with nausea and diarrhea, but he denied fevers,chills, CP, and SOB. He smokes 1ppd, reports rare alcohol use, and denies other recreational drug use. CT of the abdomen and pelvis showed nonobstructing left nephrolithiasis, similardilatation of the intrarenal collecting system and proximal ureter on the left, liver cirrhosis, renal atrophy with focal scarring, no acute findings. There isdiverticulosis, no diverticulitis, no gallbladder abnormality identified. Chestx-ray showed no acute cardiopulmonary findings. CT of the head showed diffuse atrophy, decreased density of the white matter most consistent with chronic small vessel disease, no acute intracranial findings. CTA of the chest was negative for PE. EKG with sinus tachycardia at 103 bpm, incomplete RBBB, left anterior fascicular block. Initial labs showed CBC with a white blood cellcountof 23.4, H&H 9.9/28.9, CMP with a sodium 132, potassium 3.4, chloride 90, serum bicarb 33.4, BUN 31, creatinine 4.63, total bilirubin 3.2, AST 282. Troponin 302, repeat 279, total CPK 3135. Lipase 664. He was given 1 L saline bolus, Zofran. Blood cultures were drawn and he was also medicated with meropenem and vancomycin. He was also in the emergency room the day prior to admission with nausea and malaise. His home health nurse had expressed concerns about infection of chronic foot wound. At that ER visit, CBC was 25.1, H&H 10/27.4, CMP with a sodium 130, chloride 88, serum bicarb 33.2, BUN 53, creatinine 7.71, total bilirubin 2.1, AST 308. His lipase was 1167. No complaints ofabdominal pain, was given Zofran and discharged to home. During this re-presentation, he was admitted as inpatient to the medical floor with telemetry for elevated troponin and infection. Troponin trended flat and patient was noted to be possibly dehydrated with nausea and diarrhea followed by armen sis. No CP or SOB andEKG was with changes. Initially, patient was very non-interactive and appeared to feel very unwell. He was continued on Vancomycin and Meropenem for possible foot wound infection and stool was tested for C. diff and cultured which were both normal. He was seen by podiatry who did a bedside debridement, but did not recommend further ORdebridement. He was also seen by infectious disease and antibiotics were maintained broad spectrum while culture and sensitivities were pending. On day #2 of hospitalization, patient was much more interactive and talkative saying that he felt significantly better from admission. He started having improvementin GI symptoms and denied any new issues. PVR was unable to be read due to incompressibility of the vessels. Patient was feeling much better; however, hisblood pressure was very marginal- 80s/50s. Blood cultures had no growth to 3 days, and upon wound culture results, ID recommended switching patient to oral Levaquin. Patient's blood pressure somewhat improved, and he remained asymptomatic, so he was discharged with PCP, podiatry, and nephrology/dialysis follow ups. Patient has multiple complex medical issues as listed above and others that are not listed. All appear to be stable at this time. Patient is feeling significantly better and feeling comfortable with this plan of discharge. I do not have any clear or strong clinical justification to extend inpatient hospitalization. Patient however will require close and the frequent monitoringas well as additional work-up, investigation and therapeutic intervention that could take place from this point on post discharge. That is to prevent relapse,decompensation, rehospitalization and other medical implication s. Outpatient follow up as directed for continuity of care. Verbal and written discharge instructions will be provided to the patient. Attending Physician Attestation: I personally reviewed the history, performed the laureano elements of the exam, formulated the plan of care and confirmed the written note. I agree with the findings and plan as documented in this note and have edited it if needed to reflect my findings and plan. Julian Ceron MD Time spent discussing smoking cessation with patient: 3 to 10 minutes Condition Condition at Discharge: Stable Status at Discharge Functional status at discharge: wheelchair bound Overall status at discharge: patient is back to baseline Time Spent with Patient Time spent providing/coordinating discharge services (# min): 40 Discharge Plan Discharge Plan Patient Disposition: Home Health Services Activity: Ambulate as Tolerated Comment: WBAT to LLE with use of surgical shoe Diet: Diabetic and Renal Additional Instructions: Continue hemodialysis treatments as before Continue to monitor glucose levels as before Dietitian recommendations: *Nepro, 1 container, daily with meal Home health to manage: -RN/Aide to eval and treat -Monitor VS per protocol -High fall risk precautions -Perform podiatry assessments -Monitor for increased signs of infection -Assist with medication management and education -Continue hemodialysis treatments as before -Continue to monitor glucose levels as before -Offload heels and reposition every 2 hours -Wound care daily: -Vashe wet to dry to B/L LE with 4x4s, ABD, kerlix, EJSSENIA. -Offload B/L LE heels and lateral foot at all times with pillows or prevalon boots -WBAT to LLE with use of surgical shoe -Dietitian recommendations: *Nepro, 1 container, daily with meal Instructions: Know your Meds Prescriptions: New levofloxacin 500 mg Tablet 500 mg PO Q48HR 7 Days Qty: 4 0RF midodrine 5 mg tablet 5 mg PO TID Qty: 30 0RF Rx Instructions: do not give last dose of day after 6PM or within 4 hrs of bedtime Continued insulin aspart U-100 [Novolog U-100 Insulin [...] unless approved by prescriber* Rx Instructions: 151-200 0 units 201-250 2 units 251-300 4units 301-350 6 units 351-400 8 units 401-450 10 units over 400 call doctor duloxetine 60 mg capsule,delayed release(DR/EC) 60 mg PO QHS atorvastatin 10 mg tablet 10 mg PO HS clopidogrel 75 mg tablet 75 mg PO DAILY melatonin 5 mg Tablet 5 mg PO HS PRN (Reason: Insomnia) folic acid 1 mg tablet 1 mg PO DAILY Patient Comments: take 1 tablet by mouth once daily polyethylene glycol 3350 [Miralax] 17 gram Powder In Packet 17 g PO DAILY Qty: 0 0RF ammonium lactate 12 % lotion 1 applic TOPICAL DAILY ferrous sulfate [FeroSul] 325 mg (65 mg iron) tablet 325 mg PO DAILY ergocalciferol (vitamin D2) 50,000 unit Tablet 50,000 unit PO QWEEK ascorbic acid (vitamin C) [Vitamin C] 500 mg Tablet 500 mg PO DAILY docusate sodium 100 mg capsule 100 mg PO DAILY PRN (Reason: constipation) calcium acetate(phosphat bind) 667 mg capsule 667 mg PO TIDWM gabapentin 300 mg capsule 300 mg PO HS insulin degludec [Tresiba FlexTouch U-200] 200 unit/mL (3 mL) insulin pen 45 unit SUBCUT DAILY Discontinued tamsulosin [Flomax] 0.4 mg Capsule 0.4 mg PO BID furosemide 40 mg tablet 40 mg PO BID metoprolol succinate 25 mg tablet extended release 24 hr 12.5 mg PO DAILY Other Ambulatory Orders: Initiate Home Health (Routine) Timeframe: [id number] Location: Determined by Patient Ordered By: Julian Jones Follow Up: [facility] [Other] - 09/28/24 9:30 am (Previously scheduled appointment.) Mervat Santiago NP-C [Primary Care Provider] - 09/30/24 5:00 pm (You have been scheduled for a follow up appointment for the following date and time, please call to reschedule if needed.) Continuity of Care Document Health Concerns: A [facility] screening has identified you as FRAIL or AT RISK FOR FRAILTY. This puts you at a higher risk for infection, illness, falls,and other injuries. Here are four ways to help you reduce your risk of frailty: 1. IDENTIFY EARLY SIGNS OF FRAILTY ? Discuss contributing factors and concerns with your doctor 2. BE ACTIVE ? Walking and light strengthening exercises will help reduce weakness 3. EAT WELL ? Aim for three healthy meals a day that are high in protein 4. THINKPOSITIVE ? Keep your mind active by being sociable and continuing to learn References: Stay Strong:Four Ways to Beat the Frailty Risk https://www.[facility].org/health/mannvtib-axq-xbxkxsdzsf/st ze-tfwmgf-wbhw- hrni-ok-arsm-llm-xdezubf-pafm Exam Physical Exam Vital Signs: Temp Pulse Resp BP Pulse Ox O2 Del Method O2 Flow Rate 98.0 F 93 16 96/62 L 94 L Room Air 90 09/14/24 08:00 09/14/24 08:00 09/14/24 08:00 09/14/24 08:00 09/14/24 08:00 09/14/24 08:00 09/12/24 04:00 Narrative: Constitutional: no acute distress, nontoxic appearing HEENT: mucous membranes moist Heart: RRR, no murmurs, rubs, gallops Lungs: CTA b/l, no wheezes or rales Abdomen: soft, nontender, nondistended MSK: no joint swelling or erythema noted Extremities: feet wrapped in dressing, very thick and dry skin of feet Neuro: awake, alert, and oriented x3, no focal neurological deficits noted Psych: appropriate and cooperative Diagnostic Studies Completed and Pending Studies Pending studies at discharge: 09/10/24 17:30 Urinalysis Stat 09/10/24 18:50 Blood Culture Stat 09/10/24 21:19 Drug Screen,Urine [TOX] Routine 09/15/24 05:00 Complete Blood Count Auto Diff IN AM 09/16/24 05:00 Complete Blood Count Auto Diff IN AM 09/17/24 05:00 Complete Blood Count Auto Diff IN AM 09/18/24 05:00 Complete Blood Count Auto Diff IN AM 09/19/24 05:00 Complete Blood Count Auto Diff IN AM 09/20/24 05:00 Complete Blood Count Auto Diff IN AM Preliminary micro results at discharge 09/10/24 18:50 Blood Culture - Preliminary Blood - Left Hand No Growth 3 Days 09/10/24 17:59 Blood Culture - Preliminary Blood - Left Forearm No Growth 3 Days Labs on day of discharge: 09/14/24 06:48: POC Glucose 113 09/14/24 06:42: Corrected WBC 14.1 H, Uncorrected WBC Count 15.7 H, RBC 2.93 L, Hgb 9.8 L, Hct 30.7L, MCV 104.7 H, MCH 33.5, MCHC 32.0 L, RDW 17.6 H, Plt Count 289, MPV 10.1, Neut % (Auto) N/A, Lymph % (Auto) N/A, Nash % (Auto) N/A, Eos % (Auto) N/A, Baso % (Auto) N/A, Nucleat RBC Rel Count N/A, Neut # (Auto) N/A, Lymph # (Auto) N/A, Nash # (Auto) N/A, Eos # (Auto) N/A, Baso # (Auto) N/A, Lymphocytes % 21, Monocytes % 13 H, Eosinophils % 6 H, Metamyelocytes % 1 H, Segmented Neutrophils 59, Nucleated RBCs/100 WBC 18 H, Platelet Estimate Normal, Large Platelets Slight, Plt Morphology Comment N/A, RBC Morphology N/A, Polychromasia Moderate, Anisocytosis Moderate, Macrocytosis Slight, Target Cells Slight, Acanthocytes (Spur) Slight, Schistocytes Slight, PHA Creatinine Clear 10.23, Sodium 132L, Potassium 4.0, Chloride 98, Carbon Dioxide 23.2, Anion Gap 14.8, BUN 46 H, Creatinine 7.98 H D, Est GFR (CKD-EPI) 6.533, Glucose 94, Calcium 8.6, Total Bilirubin 1.1 H, AST 58 H, ALT 12, Alkaline Phosphatase 104, Total Protein 8.2, Albumin 3.5, Globulin 4.7, Albumin/Globulin Ratio 0.7 09/13/24 20:36: POC Glucose 174 09/13/24 16:19: POC Glucose 216 09/13/24 13:49: POC Glucose 197 Documented By: Julian Jones MD 09/14/24 10 21 Signed By: 09/14/24 1355 09/14/[address] [place], [place] 0242006-10-2025 [place] [address] Nephrology Progress Note Signed Patient: Simon Lott MR#: [id number] : 1950 Acct:[id number] Age/Sex: 74 / M Adm Date: 5 Loc: Room: [address] [place] [address] Type: ADM IN Attending Dr: Julian Jones MD Copies to: ~ Date of Service: 09/14/2024 Subjective Subjective Narrative: This is a 74-year-old male with a medical history of ESRD on HD, liver cirrhosis, hepatitis C, chronic left-sided hydronephrosis, nephrolithiasis, CVA,PAD, BPH, T2DM, bilateral diabetic foot ulcer presented to the emergency room for change in mental status. Patient has a ESRD due to the diabetic nep hropathyand hypertensive nephrosclerosis and currently goes to the [facility], dialysis unit 3 times a week on MWF schedule. He currently has AV fistula as a dialysis access and has been on dialysis sinceJuly 2023. On evaluation in emergency room patient was found to have a leukocytosis and was given empiric ertapenem for possible sepsis. He had multiple imaging done including CTA abdomen pelvis which showed no acute findings or evidence of PE. He also had a CT head which was negative. Patient chest x-ray was also negative for any acute finding. Nephrology is consulted for ESRD management duringthe hospital stay. Interim history He had full hemodialysis yesterday with no events. Patient was on meropenem and vancomycin however blood culture showed no growth. Antibiotics was stopped. Wound culture showed Staph aureus E. coli and Proteus however he was seen by ID and there is no evidence of active infections. Antibiotics was stopped. Patient denies any more diarrhea. No nausea or vomiting. C. difficile was negative Exam Physical Exam Vital Signs: Temp Pulse Resp BP Pulse Ox O2 Del Method O2 Flow Rate 36.7 C 93 16 96/62 L 94 L Room Air 90 09/14/24 08:00 09/14/24 08:00 09/14/24 08:00 09/14/24 08:00 09/14/24 08:00 09/14/24 08:00 09/12/24 04:00 Narrative: General: Looks ill and older than [...] alert oriented x3. No focal deficits Extremity. Patient has a chronic lower extremity edema. Both feet wrapped withdressing. Left foot s/p TMA with reported full-thickness ulceration on the plantar surface. Skin: No skin rash. Objective Intake and Output I&O: Intake & Output 09/11/24 09/12/24 09/13/24 09/14/24 23:59 23:59 23:59 23:59 Intake Total 200 / 200 600 / 600 1370 / 1370 300 / 300 Output Total 0 / 0 2443 / 2443 0 / 0 Balance 200 / 200 600 / 600 -1073 / -1073 300 / 300 Weight 94.7 kg 98.5 kg 99.5 kg 99.4 kg Meds and Allergies Meds: Active Medications Acetaminophen (Acetaminophen 325 Mg Tablet) 650 mg PO Q6HR PRN PRN Reason: Pain Scale 1 - 3 or fever Stop: 09/10/25 21:18 Ammonium Lactate (Ammonium Lactate 12% Lot 226 Gm Bottle) 1 applic TOPICAL DAILY [facility] Stop: 09/11/25 08:59 Last Admin: 09/14/24 08:54 Dose: 1 applic Clopidogrel Bisulfate (Clopidogrel Bisulfate 75 Mg Tablet) 75 mg PO DAILY [facility] Stop: 09/11/25 08:59 Last Admin: 09/14/24 08:54 Dose: 75 mg Darbepoetin Romel (Darbepoetin Romel In Polysorbat 40 Mcg/Ml Vial) 40 mcg IV- PUSHWe@1000 JULIANN; Protocol Stop: 09/15/25 09:59 Dextrose (Dextrose 50% In Water 25 Gm/50 Ml Syringe) 0 gm IV-PUSH PRN PRN PRN Reason: Hypoglycemia Stop: 09/10/25 22:29 Docusate Sodium (Docusate 100 Mg Capsule) 200 mg PO BID PRN PRN Reason: Constipation Stop: 09/13/25 08:45 Last Admin: 09/13/24 21:45 Dose: 200 mg Duloxetine HCl (Duloxetine 30 Mg Capsule.) 60 mg PO QHS [facility] Stop: 09/11/25 21:59 Last Admin: 09/13/24 21:45 Dose: 60 mg Ferrous Sulfate (Ferrous Sulfate 324 Mg Tablet.) 324 mg PO DAILY [facility] Stop: 09/11/25 08:59 Last Admin: 09/14/24 08:54 Dose: 324 mg Gabapentin (Gabapentin 300 Mg Capsule) 300 mg PO QHS [facility] Stop: 09/11/25 21:59 Last Admin: 09/13/24 21:45 Dose: 300 mg Glucose (Dextrose 40% Gel 15 Gm Tube) 0 gm PO PRN PRN PRN Reason: Hypoglycemia Stop: 09/10/25 22:29 Heparin Sodium (Porcine) (Heparin 10,000 Unit/10 Ml Vial) 3,000 unit IV PRN PRN PRN Reason: Dialysis Stop: 09/13/25 09:08 Last Admin: 09/13/24 09:51 Dose: 3,000 unit Heparin Sodium (Porcine) (Heparin 10,000 Unit/10 Ml Vial) 1,500 unit IV PRN PRN PRN Reason: Dialysis Stop: 09/13/25 09:08 Last Admin: 09/13/24 09:51 Dose: 1,500 unit Sodium Chloride (0.9% Sodium Chloride 1,000 Ml) 1,000 mls @ 0 mls/hr MISCELLANE.Q0M PRN PRN Reason: Dialysis Stop: 09/13/25 09:08 Last Infusion: 09/13/24 09:52 Dose: Infused Insulin Aspart (Insulin Aspart 300 Units/3 Ml) 0 units SUBCUT TID.WM.HS [facility]; Protocol Stop: 09/11/25 07:59 Last Admin: 09/14/24 08:54 Dose: Not Given Insulin Glargine (Insulin Glargine 300 Units/3 Ml Insuln.Pen) 36 units SUBCUT DAILY [facility] Stop: 09/11/25 12:29 Last Admin: 09/14/24 08:54 Dose: 36 units Levofloxacin (Levofloxacin 500 Mg Tablet) 500 mg PO Q48HR [facility] Melatonin (Melatonin 5 Mg Tablet) 5 mg PO HS PRN PRN Reason: Insomnia Stop: 09/11/25 00:03 Last Admin: 09/12/24 21:27 Dose: 5 mg Metoprolol Succinate (Metoprolol Succinate 25 Mg Tab.Er.24h) 12.5 mg PO DAILY [facility] Stop: 09/11/25 12:29 Last Admin: 09/14/24 08:54 Dose: 12.5 mg Ondansetron HCl (Ondansetron 4 Mg/2 Ml Vial) 4 mg IV-PUSH Q8H PRN PRN Reason: Nausea And Vomiting Stop: 09/10/25 21:18 Oxycodone/Acetaminophen (Oxycodone/Acetaminophen 5-325 Mg Tablet) 1 tab PO Q4H PRN PRN Reason: Pain Scale 4 - 7 Prochlorperazine Edisylate (Prochlorperazine Edisylate 10 Mg/2 Ml Vial) 5 mg IMQ4H PRN PRN Reason: Nausea And Vomiting Stop: 09/10/25 21:18 Sodium Chloride (Sodium Chloride 0.9 % 10 Ml Syringe) 0 ml IV-PUSH PRN PRN PRN Reason: Flush Stop: 09/10/25 17:16 Last Admin: 09/10/24 20:16 Dose: 10 ml Sodium Chloride (Sodium Chloride 0.9 % 10 Ml Syringe) 0 ml IV-PUSH PRN PRN PRN Reason: Flush Stop: 09/13/25 09:08 Last Admin: 09/13/24 09:51 Dose: 10 ml Allergies codeine Allergy (Unknown, Verified 09/10/24 17:18) Unknown Reaction lisinopril Allergy (Unknown, Verified 09/10/24 17:18) Swelling of Lip/Tongue/Throat, anaphylaxis Results - Nephrology Labs 09/14/24 06:42 09/14/24 06:42 Labs: 09/14/24 06:42 BUN 46 H Creatinine 7.98 H D Albumin 3.5 Radiology Impressions Impressions - last 24 hours: Any impression(s) listed above is documentation that was entered by the reading physician into a diagnostic report(s) for Simon Lott. I have reviewed the report(s) and am incorporating any findings in the treatment plan of this patient where applicable. A&P - Nephrology Assessment/Plan (1) ESRD (end stage renal disease) on dialysis: Assessment/Problem Details: He has a ESRD due to diabetic nephropathy and hypertensive nephrosclerosis. He has been on dialysissince July 2023 and currently goes to the [facility] 3 times a week (2) Diabetic foot ulcer: Assessment/Problem Details: Patient currently on vancomycin and meropenem. WBCs count is improving. ID is following. Wound culture showed staph aureus, E. coli and Proteus Mirabillis (3) Anemia of renal disease: Assessment/Problem Details: His hemoglobin below the goal. He receives Aranesp with hemodialysis. (4) Hypertensive chronic kidney disease with stage 5 chronic kidney disease or end stage renal disease: Assessment/Problem Details: His blood pressure is controlled. He currently takes multiple antihypertensive occasions. (5) Type 2 diabetes mellitus with diabetic chronic kidney disease: Assessment/Problem Details: He has insulin-dependent type 2 diabetes mellitus and currently takes insulin Levemir at home. Plan * Patient had full hemodialysis yesterday for 4 hours with 2.5 L ultrafiltration. No edema. Blood pressure is well-controlled. He has normal potassium. Next hemodialysis will be tomorrow if he still in house. * Continue metoprolol 12.5 mg daily. Blood pressure drops with ultrafiltration, he is on midodrine during dialysis as needed. * Repeat hemoglobin is up again today 9.8 g/dL with no transfusion. Patient on darbepoetin romel 40 mcg weekly on Friday. Patient is able to eat and drink. He is willing to go home. Next hemodialysis will be tomorrow and the patient's current house otherwise can be done as outpatient at subsequent dialysis unit Documented By: Johan Taylor MD 09/14/24 1252 Signed By: 09/14/24 1258 [facility]06-10-2025 Progress note Author Riya Pitt [facility] HospitalNote Date/TimeJune 2024 10:03[place] [address] Infect. Disease Progress Note Signed Patient: Simon Lott MR#: [id number] : 1950 Acct:[id number] Age/Sex: 74 / M Adm Date: 5 Loc: 3T Room: [address] [place] [address] Type: ADM IN Attending Dr: Julian Jones MD Copies to: ~ Date of Service: 09/14/2024 Subjective Interval history: Patient's symptoms of diarrhea have improved and he is feeling a lot better. Offers no other complaints and actually asks when he may be able to go home Exam Physical Exam Vital Signs: Temp Pulse Resp BP Pulse Ox O2 Del Method O2 Flow Rate 98.0 F 93 16 96/62 L 94 L Room Air 90 09/14/24 08:00 09/14/24 08:00 09/14/24 08:00 09/14/24 08:00 09/14/24 08:00 09/14/24 08:00 09/12/24 04:00 Const General: cooperative, comfortable and no acute distress Orientation: alert, awake and oriented x3 HEENT Head: normal to inspection Ears: hearing grossly normal bilaterally Eyes General: appearance normal, both eyes and all related structures Pupils: PERRL Neck Neck: normal visual inspection Chest Chest palpation & inspection: normal inspection of the chest Resp Effort & Inspection: normal respiratory effort, able to speak in complete sentences and symmetric chest movement Auscultation: clear to auscultation bilaterally Cardio Rate: regular rate Rhythm: regular rhythm GI Inspection: non-distended Palpation: soft and nontender Auscultation: normal bowel sounds Skin Wounds: amputation site and wounds noted Neuro General: patient alert, patient awake and patient oriented x3 Psych Appearance: grossly normal Mental Status: mental status grossly normal Objective Labs CBC/BMP: CBC, BMP 09/14/24 06:42 Corrected WBC 14.1 H Uncorrected WBC Count 15.7 H RBC 2.93 L Hgb 9.8 L Hct 30.7 L Plt Count 289 Sodium 132 L Potassium 4.0 Chloride 98 Carbon Dioxide 23.2 Anion Gap 14.8 BUN 46 H Creatinine 7.98 H D Calcium 8.6 Labs: 09/14/24 06:42 BUN 46 H Creatinine 7.98 H D Microbiology Microbiology: Microbiology - Results from entire visit 09/10/24 23:59 Foot,Right - Other Superficial Wound Culture - Final Staphylococcus aureus Proteus mirabilis Pseudomonas aeruginosa Escherichia coli 09/10/24 18:50 Blood - Left Hand Blood Culture - Preliminary No Growth 3 Days 09/10/24 17:59 Blood - Left Forearm Blood Culture - Preliminary No Growth 3 Days 09/10/24 23:59 Foot,Left - Middle Superficial Wound Culture - Final Staphylococcus aureus Escherichia coli Proteus mirabilis Allergies and Medications Allergies and Active Meds Allergies codeine Allergy (Unknown, Verified 09/10/24 17:18) Unknown Reaction lisinopril Allergy (Unknown, Verified 09/10/24 17:18) Swelling of Lip/Tongue/Throat, anaphylaxis Active Medications Acetaminophen (Acetaminophen 325 Mg Tablet) 650 mg PO Q6HR PRN PRN Reason: Pain Scale 1 - 3 or fever Stop: 09/10/25 21:18 Ammonium Lactate (Ammonium Lactate 12% Lot 226 Gm Bottle) 1 applic TOPICAL DAILY [facility] Stop: 09/11/25 08:59 Last Admin: 09/14/24 08:54 Dose: 1 applic Clopidogrel Bisulfate (Clopidogrel Bisulfate 75 Mg Tablet) 75 mg PO DAILY [facility] Stop: 09/11/25 08:59 Last Admin: 09/14/24 08:54 Dose: 75 mg Darbepoetin Romel (Darbepoetin Romel In Polysorbat 40 Mcg/Ml Vial) 40 mcg IV- PUSHWe@1000 JULIANN; Protocol Stop: 09/15/25 09:59 Dextrose (Dextrose 50% In Water 25 Gm/50 Ml Syringe) 0 gm IV-PUSH PRN PRN PRN Reason: Hypoglycemia Stop: 09/10/25 22:29 Docusate Sodium (Docusate 100 Mg Capsule) 200 mg PO BID PRN PRN Reason: Constipation Stop: 09/13/25 08:45 Last Admin: 09/13/24 21:45 Dose: 200 mg Duloxetine HCl (Duloxetine 30 Mg Capsule.Dr) 60 mg PO QHS [facility] Stop: 09/11/25 21:59 Last Admin: 09/13/24 21:45 Dose: 60 mg Ferrous Sulfate (Ferrous Sulfate 324 Mg Tablet.) 324 mg PO DAILY [facility] Stop: 09/11/25 08:59 Last Admin: 09/14/24 08:54 Dose: 324 mg Gabapentin (Gabapentin 300 Mg Capsule) 300 mg PO QHS [facility] Stop: 09/11/25 21:59 Last Admin: 09/13/24 21:45 Dose: 300 mg Glucose (Dextrose 40% Gel 15 Gm Tube) 0 gm PO PRN PRN PRN Reason: Hypoglycemia Stop: 09/10/25 22:29 Heparin Sodium (Porcine) (Heparin 10,000 Unit/10 Ml Vial) 3,000 unit IV PRN PRN PRN Reason: Dialysis Stop: 09/13/25 09:08 Last Admin: 09/13/24 09:51 Dose: 3,000 unit Heparin Sodium (Porcine) (Heparin 10,000 Unit/10 Ml Vial) 1,500 unit IV PRN PRN PRN Reason: Dialysis Stop: 09/13/25 09:08 Last Admin: 09/13/24 09:51 Dose: 1,500 unit Meropenem (Merrem) 0.5 gm in 100 mls @ 33.333 mls/hr IV Q24H [facility] Last Admin: 09/13/24 21:45 Dose: 200 mls/hr Sodium Chloride (0.9% Sodium Chloride 1,000 Ml) 1,000 mls @ 0 mls/hr MISCELLANE.Q0M PRN PRN Reason: Dialysis Stop: 09/13/25 09:08 Last Infusion: 09/13/24 09:52 Dose: Infused Insulin Aspart (Insulin Aspart 300 Units/3 Ml) 0 units SUBCUT TID.WM.HS [facility]; Protocol Stop: 09/11/25 07:59 Last Admin: 09/14/24 08:54 Dose: Not Given Insulin Glargine (Insulin Glargine 300 Units/3 Ml Insuln.Pen) 36 units SUBCUT DAILY [facility] Stop: 09/11/25 12:29 Last Admin: 09/14/24 08:54 Dose: 36 units Melatonin (Melatonin 5 Mg Tablet) 5 mg PO HS PRN PRN Reason: Insomnia Stop: 09/11/25 00:03 Last Admin: 09/12/24 21:27 Dose: 5 mg Metoprolol Succinate (Metoprolol Succinate 25 Mg Tab.Er.24h) 12.5 mg PO DAILY JULIANN Stop: 09/11/25 12:29 Last Admin: 09/14/24 08:54 Dose: 12.5 mg Ondansetron HCl (Ondansetron 4 Mg/2 Ml Vial) 4 mg IV-PUSH Q8H PRN PRN Reason: Nausea And Vomiting Stop: 09/10/25 21:18 Oxycodone/Acetaminophen (Oxycodone/Acetaminophen 5-325 Mg Tablet) 1 tab PO Q4H PRN PRN Reason: Pain Scale 4 - 7 Prochlorperazine Edisylate (Prochlorperazine Edisylate 10 Mg/2 Ml Vial) 5 mg IMQ4H PRN PRN Reason: Nausea And Vomiting Stop: 09/10/25 21:18 Sodium Chloride (Sodium Chloride 0.9 % 10 Ml Syringe) 0 ml IV-PUSH PRN PRN PRN Reason: Flush Stop: 09/10/25 17:16 Last Admin: 09/10/24 20:16 Dose: 10 ml Sodium Chloride (Sodium Chloride 0.9 % 10 Ml Syringe) 0 ml IV-PUSH PRN PRN PRN Reason: Flush Stop: 09/13/25 09:08 Last Admin: 09/13/24 09:51 Dose: 10 ml Vancomycin HCl (Vancomycin - Pharmacy Dosing 1 Each Miscell) 1 each IV ONCE PRN; Protocol PRN Reason: ZZ.Pharmacy Consult A&P - Infectious Disease Assessment/Plan (1) Type 2 diabetes mellitus with peripheral neuropathy: Plan: . (2) PAD (peripheral artery disease): Plan: . (3) Type 2 diabetes mellitus with foot ulcer: Plan: . (4) Foot drop, right: Plan: . (5) Wound of foot: Plan: . Plan Mr. 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 Staff at the dialysis center were concerned that patienthad altered mental status. Patient is currently being evaluated for diabetic foot infection. Patient with chronic wounds on his feet that podiatry has evaluated thoroughly and clinical signs of infection are not present. Patient's GI complaints that he presented with seem to be better. Patient's white count however still elevated. Patient still has multiple organisms growing from these wounds and since he was placed on antibiotics and clear reason for admission/symptoms not appearing may be worthwhile finishing out short course of antibiotic therapy. Will transition to oral Levaquin. Documented By: Riya Pitt MD 09/14/24 0953 Signed By: <Electronically signed by MD Riya Pitt> 09/14/24 1003 [facility] Work Phone: [phone]) 633-992806-10-2025 [place] [address] Infect. Disease Progress Note Signed Patient: Simon Lott MR#: [id number] : 1950 Acct:[id number] Age/Sex: 74 / M Adm Date: 5 Loc: Room: [address] [place] [address] Type: ADM IN Attending Dr: Julian Jones MD Copies to: ~ Date of Service: 09/14/2024 Subjective Interval history: Patient's symptoms of diarrhea have improved and he is feeling a lot better. Offers no other complaints and actually asks when he may be able to go home Exam Physical Exam Vital Signs: Temp Pulse Resp BP Pulse Ox O2 Del Method O2 Flow Rate 98.0 F 93 16 96/62 L 94 L Room Air 90 09/14/24 08:00 09/14/24 08:00 09/14/24 08:00 09/14/24 08:00 09/14/24 08:00 09/14/24 08:00 09/12/24 04:00 Const General: cooperative, comfortable and no acute distress Orientation: alert, awake and oriented x3 HEENT Head: normal to inspection Ears: hearing grossly normal bilaterally Eyes General: appearance normal, both eyes and all related structures Pupils: PERRL Neck Neck: normal visual inspection Chest Chest palpation & inspection: normal inspection of the chest Resp Effort & Inspection: normal respiratory effort, able to speak in complete sentences and symmetric chest movement Auscultation: clear to auscultation bilaterally Cardio Rate: regular rate Rhythm: regular rhythm GI Inspection: non-distended Palpation: soft and nontender Auscultation: normal bowel sounds Skin Wounds: amputation site and wounds noted Neuro General: patient alert, patient awake and patient oriented x3 Psych Appearance: grossly normal Mental Status: mental status grossly normal Objective Labs CBC/BMP: CBC, BMP 09/14/24 06:42 Corrected WBC 14.1 H Uncorrected WBC Count 15.7 H RBC 2.93 L Hgb 9.8 L Hct 30.7 L Plt Count 289 Sodium 132 L Potassium 4.0 Chloride 98 Carbon Dioxide 23.2 Anion Gap 14.8 BUN 46 H Creatinine 7.98 H D Calcium 8.6 Labs: 09/14/24 06:42 BUN 46 H Creatinine 7.98 H D Microbiology Microbiology: Microbiology - Results from entire visit 09/10/24 23:59 Foot,Right - Other Superficial Wound Culture - Final Staphylococcus aureus Proteus mirabilis Pseudomonas aeruginosa Escherichia coli 09/10/24 18:50 Blood - Left Hand Blood Culture - Preliminary No Growth 3 Days 09/10/24 17:59 Blood - Left Forearm Blood Culture - Preliminary No Growth 3 Days 09/10/24 23:59 Foot,Left - Middle Superficial Wound Culture - Final Staphylococcus aureus Escherichia coli Proteus mirabilis Allergies and Medications Allergies and Active Meds Allergies codeine Allergy (Unknown, Verified 09/10/24 17:18) Unknown Reaction lisinopril Allergy (Unknown, Verified 09/10/24 17:18) Swelling of Lip/Tongue/Throat, anaphylaxis Active Medications Acetaminophen (Acetaminophen 325 Mg Tablet) 650 mg PO Q6HR PRN PRN Reason: Pain Scale 1 - 3 or fever Stop: 09/10/25 21:18 Ammonium Lactate (Ammonium Lactate 12% Lot 226 Gm Bottle) 1 applic TOPICAL DAILY JULIANN Stop: 09/11/25 08:59 Last Admin: 09/14/24 08:54 Dose: 1 applic Clopidogrel Bisulfate (Clopidogrel Bisulfate 75 Mg Tablet) 75 mg PO DAILY JULIANN Stop: 09/11/25 08:59 Last Admin: 09/14/24 08:54 Dose: 75 mg Darbepoetin Romel (Darbepoetin Romel In Polysorbat 40 Mcg/Ml Vial) 40 mcg IV- PUSHWe@1000 JULIANN; Protocol Stop: 09/15/25 09:59 Dextrose (Dextrose 50% In Water 25 Gm/50 Ml Syringe) 0 gm IV-PUSH PRN PRN PRN Reason: Hypoglycemia Stop: 09/10/25 22:29 Docusate Sodium (Docusate 100 Mg Capsule) 200 mg PO BID PRN PRN Reason: Constipation Stop: 09/13/25 08:45 Last Admin: 09/13/24 21:45 Dose: 200 mg Duloxetine HCl (Duloxetine 30 Mg Capsule.Dr) 60 mg PO QHS [facility] Stop: 09/11/25 21:59 Last Admin: 09/13/24 21:45 Dose: 60 mg Ferrous Sulfate (Ferrous Sulfate 324 Mg Tablet.) 324 mg PO DAILY [facility] Stop: 09/11/25 08:59 Last Admin: 09/14/24 08:54 Dose: 324 mg Gabapentin (Gabapentin 300 Mg Capsule) 300 mg PO QHS [facility] Stop: 09/11/25 21:59 Last Admin: 09/13/24 21:45 Dose: 300 mg Glucose (Dextrose 40% Gel 15 Gm Tube) 0 gm PO PRN PRN PRN Reason: Hypoglycemia Stop: 09/10/25 22:29 Heparin Sodium (Porcine) (Heparin 10,000 Unit/10 Ml Vial) 3,000 unit IV PRN PRN PRN Reason: Dialysis Stop: 09/13/25 09:08 Last Admin: 09/13/24 09:51 Dose: 3,000 unit Heparin Sodium (Porcine) (Heparin 10,000 Unit/10 Ml Vial) 1,500 unit IV PRN PRN PRN Reason: Dialysis Stop: 09/13/25 09:08 Last Admin: 09/13/24 09:51 Dose: 1,500 unit Meropenem (Merrem) 0.5 gm in 100 mls @ 33.333 mls/hr IV Q24H [facility] Last Admin: 09/13/24 21:45 Dose: 200 mls/hr Sodium Chloride (0.9% Sodium Chloride 1,000 Ml) 1,000 mls @ 0 mls/hr MISCELLANE.Q0M PRN PRN Reason: Dialysis Stop: 09/13/25 09:08 Last Infusion: 09/13/24 09:52 Dose: Infused Insulin Aspart (Insulin Aspart 300 Units/3 Ml) 0 units SUBCUT TID.[facility]; Protocol Stop: 09/11/25 07:59 Last Admin: 09/14/24 08:54 Dose: Not Given Insulin Glargine (Insulin Glargine 300 Units/3 Ml Insuln.Pen) 36 units SUBCUT DAILY JULIANN Stop: 09/11/25 12:29 Last Admin: 09/14/24 08:54 Dose: 36 units Melatonin (Melatonin 5 Mg Tablet) 5 mg PO HS PRN PRN Reason: Insomnia Stop: 09/11/25 00:03 Last Admin: 09/12/24 21:27 Dose: 5 mg Metoprolol Succinate (Metoprolol Succinate 25 Mg Tab.Er.24h) 12.5 mg PO DAILY JULIANN Stop: 09/11/25 12:29 Last Admin: 09/14/24 08:54 Dose: 12.5 mg Ondansetron HCl (Ondansetron 4 Mg/2 Ml Vial) 4 mg IV-PUSH Q8H PRN PRN Reason: Nausea And Vomiting Stop: 09/10/25 21:18 Oxycodone/Acetaminophen (Oxycodone/Acetaminophen 5-325 Mg Tablet) 1 tab PO Q4H PRN PRN Reason: Pain Scale 4 - 7 Prochlorperazine Edisylate (Prochlorperazine Edisylate 10 Mg/2 Ml Vial) 5 mg IMQ4H PRN PRN Reason: Nausea And Vomiting Stop: 09/10/25 21:18 Sodium Chloride (Sodium Chloride 0.9 % 10 Ml Syringe) 0 ml IV-PUSH PRN PRN PRN Reason: Flush Stop: 09/10/25 17:16 Last Admin: 09/10/24 20:16 Dose: 10 ml Sodium Chloride (Sodium Chloride 0.9 % 10 Ml Syringe) 0 ml IV-PUSH PRN PRN PRN Reason: Flush Stop: 09/13/25 09:08 Last Admin: 09/13/24 09:51 Dose: 10 ml Vancomycin HCl (Vancomycin - Pharmacy Dosing 1 Each Miscell) 1 each IV ONCE PRN; Protocol PRN Reason: PawanZ.Pharmacy Consult A&P - Infectious Disease Assessment/Plan (1) Type 2 diabetes mellitus with peripheral neuropathy: Plan: . (2) PAD (peripheral artery disease): Plan: . (3) Type 2 diabetes mellitus with foot ulcer: Plan: . (4) Foot drop, right: Plan: . (5) Wound of foot: Plan: . Plan Mr. 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 Staff at the dialysis center were concerned that patienthad altered mental status. Patient is currently being evaluated for diabetic foot infection. Patient with chronic wounds on his feet that podiatry has evaluated thoroughly and clinical signs of infection are not present. Patient's GI complaints that he presented with seem to be better. Patient's white count however still elevated. Patient still has multiple organisms growing from these wounds and since he was placed on antibiotics and clear reason for admission/symptoms not appearing may be worthwhile finishing out short course of antibiotic therapy. Will transition to oral Levaquin. Documented By: Riya Pitt MD 09/14/24 0953 Signed By: 09/14/24 1003 [facility]06-09-2025 Progress note Author Johan Taylor [facility] HospitalNote Date/TimeJune 2024 4:08[place] [address] Nephrology Progress Note Signed Patient: Simon Lott MR#: [id number] : 1950 Acct:[id number] Age/Sex: 74 / M Adm Date: 5 Loc: Room: [address] [place] [address] Type: ADM IN Attending Dr: Julian Jones MD Copies to: ~ Date of Service: 09/13/2024 Subjective Subjective Narrative: This is a 74-year-old male with a medical history of ESRD on HD, liver cirrhosis, hepatitis C, chronic left-sided hydronephrosis, nephrolithiasis, CVA,PAD, BPH, T2DM, bilateral diabetic foot ulcer presented to the emergency room for change in mental status. Patient has a ESRD due to the diabetic nep hropathyand hypertensive nephrosclerosis and currently goes to the [facility], dialysis unit 3 times a week on MWF schedule. He currently has AV fistula as a dialysis access and has been on dialysis sinceJuly 2023. On evaluation in emergency room patient was found to have a leukocytosis and was given empiric ertapenem for possible sepsis. He had multiple imaging done including CTA abdomen pelvis which showed no acute findings or evidence of PE. He also had a CT head which was negative. Patient chest x-ray was also negative for any acute finding. Nephrology is consulted for ESRD management duringthe hospital stay. Interim history Patient is being seen and examined on hemodialysis. He currently has no symptoms. He is currently on meropenem and vancomycin. Wound culture showed Staph aureus, E. coli and Proteus propolis. Blood culture showed no growth. Patient has abdominal discomfort. Nausea and vomiting are improving. C. difficile was negative. Troponin stabilized. He denies any chest pain. Exam Physical Exam Vital Signs: Temp Pulse Resp BP Pulse Ox O2 Del Method O2 Flow Rate 36.3 C L 57 L 16 89/50 L 98 Room Air 90 09/13/24 14:03 09/13/24 14:03 09/13/24 14:03 09/13/24 14:03 09/13/24 13:24 09/13/24 13:24 09/12/24 04:00 Narrative: General: Looks ill and older than [...] alert oriented x3. No focal deficits Extremity. Patient has a chronic lower extremity edema. Both feet wrapped withdressing. Left foot s/p TMA with reported full-thickness ulceration on the plantar surface. Skin: No skin rash. Objective Intake and Output I&O: Intake & Output 09/10/24 09/11/24 09/12/24 09/13/24 23:59 23:59 23:59 23:59 Intake Total 1100 / 1100 200 / 200 500 / 500 800 / 800 Output Total 0 / 0 2443 / 2443 Balance 1100 / 1100 200 / 200 500 / 500 -1643 / -1643 Weight 94.7 kg 94.7 kg 98.5 kg 99.5 kg Meds and Allergies Meds: Active Medications Acetaminophen (Acetaminophen 325 Mg Tablet) 650 mg PO Q6HR PRN PRN Reason: Pain Scale 1 - 3 or fever Stop: 09/10/25 21:18 Ammonium Lactate (Ammonium Lactate 12% Lot 226 Gm Bottle) 1 applic TOPICAL DAILY JULIANN Stop: 09/11/25 08:59 Last Admin: 09/13/24 14:12 Dose: 1 applic Clopidogrel Bisulfate (Clopidogrel Bisulfate 75 Mg Tablet) 75 mg PO DAILY JULIANN Stop: 09/11/25 08:59 Last Admin: 09/13/24 14:12 Dose: 75 mg Darbepoetin Romel (Darbepoetin Romel In Polysorbat 40 Mcg/Ml Vial) 40 mcg IV- PUSHWe@1000 JULIANN; Protocol Stop: 09/15/25 09:59 Dextrose (Dextrose 50% In Water 25 Gm/50 Ml Syringe) 0 gm IV-PUSH PRN PRN PRN Reason: Hypoglycemia Stop: 09/10/25 22:29 Docusate Sodium (Docusate 100 Mg Capsule) 200 mg PO BID PRN PRN Reason: Constipation Stop: 09/13/25 08:45 Duloxetine HCl (Duloxetine 30 Mg Capsule.) 60 mg PO QHS [facility] Stop: 09/11/25 21:59 Last Admin: 09/12/24 21:24 Dose: 60 mg Ferrous Sulfate (Ferrous Sulfate 324 Mg Tablet.) 324 mg PO DAILY JULIANN Stop: 09/11/25 08:59 Last Admin: 09/13/24 14:13 Dose: 324 mg Gabapentin (Gabapentin 300 Mg Capsule) 300 mg PO QHS [facility] Stop: 09/11/25 21:59 Last Admin: 09/12/24 21:24 Dose: 300 mg Glucose (Dextrose 40% Gel 15 Gm Tube) 0 gm PO PRN PRN PRN Reason: Hypoglycemia Stop: 09/10/25 22:29 Heparin Sodium (Porcine) (Heparin 10,000 Unit/10 Ml Vial) 3,000 unit IV PRN PRN PRN Reason: Dialysis Stop: 09/13/25 09:08 Last Admin: 09/13/24 09:51 Dose: 3,000 unit Heparin Sodium (Porcine) (Heparin 10,000 Unit/10 Ml Vial) 1,500 unit IV PRN PRN PRN Reason: Dialysis Stop: 09/13/25 09:08 Last Admin: 09/13/24 09:51 Dose: 1,500 unit Meropenem (Merrem) 0.5 gm in 100 mls @ 33.333 mls/hr IV Q24H [facility] Last Admin: 09/12/24 21:24 Dose: 200 mls/hr Sodium Chloride (0.9% Sodium Chloride 1,000 Ml) 1,000 mls @ 0 mls/hr MISCELLANE.Q0M PRN PRN Reason: Dialysis Stop: 09/13/25 09:08 Last Infusion: 09/13/24 09:52 Dose: Infused Vancomycin HCl (Vancomycin) 1 gm in 250 mls @ 250 mls/hr IV ONCE ONE Stop: 09/13/24 17:59 Insulin Aspart (Insulin Aspart 300 Units/3 Ml) 0 units SUBCUT TID.WM.HS [facility]; Protocol Stop: 09/11/25 07:59 Last Admin: 09/13/24 14:12 Dose: 2 units Insulin Glargine (Insulin Glargine 300 Units/3 Ml Insuln.Pen) 36 units SUBCUT DAILY [facility] Stop: 09/11/25 12:29 Last Admin: 09/13/24 14:12 Dose: 36 units Melatonin (Melatonin 5 Mg Tablet) 5 mg PO HS PRN PRN Reason: Insomnia Stop: 09/11/25 00:03 Last Admin: 09/12/24 21:27 Dose: 5 mg Metoprolol Succinate (Metoprolol Succinate 25 Mg Tab.Er.24h) 12.5 mg PO DAILY [facility] Stop: 09/11/25 12:29 Last Admin: 09/13/24 14:13 Dose: Not Given Ondansetron HCl (Ondansetron 4 Mg/2 Ml Vial) 4 mg IV-PUSH Q8H PRN PRN Reason: Nausea And Vomiting Stop: 09/10/25 21:18 Oxycodone/Acetaminophen (Oxycodone/Acetaminophen 5-325 Mg Tablet) 1 tab PO Q4H PRN PRN Reason: Pain Scale 4 - 7 Prochlorperazine Edisylate (Prochlorperazine Edisylate 10 Mg/2 Ml Vial) 5 mg IMQ4H PRN PRN Reason: Nausea And Vomiting Stop: 09/10/25 21:18 Sodium Chloride (Sodium Chloride 0.9 % 10 Ml Syringe) 0 ml IV-PUSH PRN PRN PRN Reason: Flush Stop: 09/10/25 17:16 Last Admin: 09/10/24 20:16 Dose: 10 ml Sodium Chloride (Sodium Chloride 0.9 % 10 Ml Syringe) 0 ml IV-PUSH PRN PRN PRN Reason: Flush Stop: 09/13/25 09:08 Last Admin: 09/13/24 09:51 Dose: 10 ml Vancomycin HCl (Vancomycin - Pharmacy Dosing 1 Each Miscell) 1 each IV ONCE PRN; Protocol PRN Reason: ZZ.Pharmacy Consult Allergies codeine Allergy (Unknown, Verified 09/10/24 17:18) Unknown Reaction lisinopril Allergy (Unknown, Verified 09/10/24 17:18) Swelling of Lip/Tongue/Throat, anaphylaxis Results - Nephrology Labs 09/13/24 06:27 09/13/24 06:27 Labs: 09/13/24 06:27 BUN 64 H Creatinine 10.14 H D Albumin 3.1 L Radiology Impressions Impressions - last 24 hours: Impressions PVR 09/11/24 11:57 IMPRESSION: No quantitative information is available from this examination due to incompressibility. Impression dictated by: Fawad Rocha M.D. 09/13/2024 9:02 AM Dictation Location: [place] [address] Any impression(s) listed above is documentation that was entered by the reading physician into a diagnostic report(s) for Simon Lott. I have reviewed the report(s) and am incorporating any findings in the treatment plan of this patient where applicable. A&P - Nephrology Assessment/Plan (1) ESRD (end stage renal disease) on dialysis: Assessment/Problem Details: He has a ESRD due to diabetic nephropathy and hypertensive nephrosclerosis. He has been on dialysissince July 2023 and currently goes to the [facility] 3 times a week (2) Diabetic foot ulcer: Assessment/Problem Details: Patient currently on vancomycin and meropenem. WBCs count is improving. ID is following. Wound culture showed staph aureus, E. coli and Proteus Mirabillis (3) Anemia of renal disease: Assessment/Problem Details: His hemoglobin below the goal. He receives Aranesp with hemodialysis. (4) Hypertensive chronic kidney disease with stage 5 chronic kidney disease or end stage renal disease: Assessment/Problem Details: His blood pressure is controlled. He currently takes multiple antihypertensive occasions. (5) Type 2 diabetes mellitus with diabetic chronic kidney disease: Assessment/Problem Details: He has insulin-dependent type 2 diabetes mellitus and currently takes insulin Levemir at home. Plan * Hemodialysis today for 4 hours, potassium is low, will change to 4K bath. 2.5 to 3 L ultrafiltration as tolerated by blood pressure. Patient on heparin 3000 loading dose and 1500 mL dose. * Continue vancomycin and meropenem. ID recommendation, dose is being adjusted by the pharmacy to his renal status * Continue metoprolol 12.5 mg daily. Blood pressure drops with ultrafiltration, he is on midodrine during dialysis as needed. * Hemoglobin is low in the setting of infection and CKD. Patient on darbepoetin romel 40 mcg weekly on Friday. * Monitor daily intake, output and renal panel to adjust medications and dialysis prescription as indicated. Documented By: Johan Taylor MD 09/13/24 1553 Signed By: <Electronically signed by MD Johan Taylor> 09/13/24 1603 [facility] Work Phone: 1(831) 215-986506-09-2025 Progress note Author Julian Jones [facility] HospitalNote Date/TimeJune 2024 2:[place] [address] Hospitalist Progress Note Signed Patient: Simon Lott MR#: [id number] : 1950 Acct:[id number] Age/Sex: 74 / M Adm Date: 5 Loc: Room: [address] [place] [address] Type: ADM IN Attending Dr: Julian Jones MD Copies to: ~ Date of Service: 09/13/2024 Subjective Subjective Narrative: Patient seen and evaluated at bedside and at dialysis. He has remained afebrile here and leukocytosis is down to 12.7. Patient states he feels well today and denies fevers or chills. Denies pain, SOB, N/V. Reports resolution in diarrhea. BP on the low side, but patient denies lightheadedness, dizziness or other symptoms. Exam Physical Exam Vital Signs: Temp Pulse Resp BP Pulse Ox O2 Del Method O2 Flow Rate 98 F 89 18 77/48 L 98 Room Air 90 09/13/24 09:00 09/13/24 10:30 09/13/24 09:00 09/13/24 10:30 09/13/24 09:00 09/13/24 09:00 09/12/24 04:00 Narrative: Constitutional: more interactive today, no acute distress, nontoxic appearing HEENT: mucous membranes moist Heart: RRR, no murmurs, rubs, gallops Lungs: CTA b/l, no wheezes or rales Abdomen: soft, nontender, nondistended MSK: no joint swelling or erythema noted Extremities: feet wrapped in dressing, very thick and dry skin of feet Neuro: awake, alert, and oriented x3, no focal neurological deficits noted Psych: appropriate and cooperative Objective Lab Results 09/13/24 06:27 09/13/24 06:27 Microbiology Results Microbiology 09/10/24 23:59 Foot,Left - Middle Superficial Wound Culture - Final Staphylococcus aureus Escherichia coli Proteus mirabilis 09/10/24 23:59 Foot,Right - Other Superficial Wound Culture - Preliminary Staphylococcus aureus Proteus mirabilis Pseudomonas aeruginosa Gram Negative Bacilli#3 09/10/24 18:50 Blood - Left Hand Blood Culture - Preliminary No Growth 2 Days 09/10/24 17:59 Blood - Left Forearm Blood Culture - Preliminary No Growth 2 Days Meds Allergies and Active Meds Allergies codeine Allergy (Unknown, Verified 09/10/24 17:18) Unknown Reaction lisinopril Allergy (Unknown, Verified 09/10/24 17:18) Swelling of Lip/Tongue/Throat, anaphylaxis Active Meds: Active Medications Generic Name Dose Route Start Last Admin Trade Name Freq PRN Reason Stop Dose Admin Acetaminophen 650 mg 09/10/24 21:19 Acetaminophen 325 Mg Tablet PO 09/10/25 21:18 Q6HR PRN Pain Scale 1 - 3 or fever Ammonium Lactate 1 applic 09/11/24 09:00 09/12/24 08:12 Ammonium Lactate 12% Lot 226 Gm Bottle TOPICAL 09/11/25 08:59 1 applic DAILY JULIANN Administration Clopidogrel Bisulfate 75 mg 09/11/24 09:00 09/12/24 08:10 Clopidogrel Bisulfate 75 Mg Tablet PO 09/11/25 08:59 75 mg DAILY JULIANN Administration Darbepoetin Romel 40 mcg 09/15/24 10:00 Darbepoetin Romel In Polysorbat 40 Mcg/Ml Vial IV-PUSH 09/15/25 09:59 We@1000 [facility] Protocol Dextrose 0 gm 09/10/24 22:30 Dextrose 50% In Water 25 Gm/50 Ml Syringe IV-PUSH 09/10/25 22:29 PRN PRN Hypoglycemia Docusate Sodium 200 mg 09/13/24 08:46 Docusate 100 Mg Capsule PO 09/13/25 08:45 BID PRN Constipation Duloxetine HCl 60 mg 09/11/24 22:00 09/12/24 21:24 Duloxetine 30 Mg Capsule. PO 09/11/25 21:59 60 mg QHS JULIANN Administration Ferrous Sulfate 324 mg 09/11/24 09:00 09/12/24 08:10 Ferrous Sulfate 324 Mg Tablet. PO 09/11/25 08:59 324 mg DAILY JULIANN Administration Gabapentin 300 mg 09/11/24 22:00 09/12/24 21:24 Gabapentin 300 Mg Capsule PO 09/11/25 21:59 300 mg QHS JULIANN Administration Glucose 0 gm 09/10/24 22:30 Dextrose 40% Gel 15 Gm Tube PO 09/10/25 22:29 PRN PRN Hypoglycemia Heparin Sodium (Porcine) 3,000 unit 09/13/24 09:09 09/13/24 09:51 Heparin 10,000 Unit/10 Ml Vial IV 09/13/25 09:08 3,000 unit PRN PRN Administration Dialysis Heparin Sodium (Porcine) 1,500 unit 09/13/24 09:09 09/13/24 09:51 Heparin 10,000 Unit/10 Ml Vial IV 09/13/25 09:08 1,500 unit PRN PRN Administration Dialysis Meropenem 0.5 gm in 100 mls @ 33.333 mls/hr 09/11/24 21:30 09/12/24 21:24 Merrem IV 200 mls/hr Q24H JULIANN Administration Sodium Chloride 1,000 mls @ 0 mls/hr 09/13/24 09:09 09/13/24 09:52 0.9% Sodium Chloride 1,000 Ml MISCELLANE 09/13/25 09:08 Infused .Q0M PRN Infusion Dialysis As Directed Vancomycin HCl 1 gm in 250 mls @ 250 mls/hr 09/13/24 17:00 Vancomycin IV 09/13/24 17:59 ONCE ONE Insulin Aspart 0 units 09/11/24 08:00 09/13/24 09:09 Insulin Aspart 300 Units/3 Ml SUBCUT 09/11/25 07:59 Not Given TID.WM.HS [facility] Protocol Insulin Glargine 36 units 09/11/24 12:30 09/12/24 08:11 Insulin Glargine 300 Units/3 Ml Insuln.Pen SUBCUT 09/11/25 12:29 36 units DAILY JULIANN Administration Melatonin 5 mg 09/11/24 00:04 09/12/24 21:27 Melatonin 5 Mg Tablet PO 09/11/25 00:03 5 mg HS PRN Administration Insomnia Metoprolol Succinate 12.5 mg 09/11/24 12:30 09/12/24 09:25 Metoprolol Succinate 25 Mg Tab.Er.24h PO 09/11/25 12:29 Not Given DAILY JULIANN Ondansetron HCl 4 mg 09/10/24 21:19 Ondansetron 4 Mg/2 Ml Vial IV-PUSH 09/10/25 21:18 Q8H PRN Nausea And Vomiting Oxycodone/Acetaminophen 1 tab 09/10/24 21:19 Oxycodone/Acetaminophen 5-325 Mg Tablet PO Q4H PRN Pain Scale 4 - 7 Prochlorperazine Edisylate 5 mg 09/10/24 21:19 Prochlorperazine Edisylate 10 Mg/2 Ml Vial IM 09/10/25 21:18 Q4H PRN Nausea And Vomiting Sodium Chloride 0 ml 09/10/24 17:17 09/10/24 20:16 Sodium Chloride 0.9 % 10 Ml Syringe IV-PUSH 09/10/25 17:16 10 ml PRN PRN Administration Flush Sodium Chloride 0 ml 09/13/24 09:09 09/13/24 09:51 Sodium Chloride 0.9 % 10 Ml Syringe IV-PUSH 09/13/25 09:08 10 ml PRN PRN Administration Flush Vancomycin HCl 1 each 09/10/24 22:02 Vancomycin - Pharmacy Dosing 1 Each Miscell IV ONCE PRN ZZ.Pharmacy Consult Protocol A&P - Hospitalist Assessment/Plan (1) Elevated troponin I level: (2) Nausea: (3) Diabetic foot ulcer: (4) ESRD (end stage renal disease) on dialysis: Plan Hospital day #3 for 74yo with ESRD on dialysis, HTN, HLD, hx of CVA, diabetes oninsulin, chronic pain admitted for elevated troponin and N/V/D. Elevated troponin likely demand ischemia from dehydration and infection Elevated CPK - troponin stabilized, continues to deny CP - admitted to tele - echo pending N/V/D - improved Leukocytosis - improving - C. 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 plan to discharge tomorrow with oral antibiotics for total of 7 days if patient's blood pressure improves. DVT PPx?SCDs Diet order?Renal CODE STATUS?full code Attending Physician Attestation: I personally reviewed the history, performed the laureano elements of the exam, formulated the plan of care and confirmed the written note. I agree with the findings and plan as documented in this note and have edited it if needed to reflect my findings and plan. Julian Ceron MD Documented By: Julian Jones MD 09/13/24 11 10 Signed By: <Electronically signed by Julian Jones MD> 09/13/24 1449 <Electronically signed by DO RERE Miles> 09/13/24 113 [facility] Work Phone: 1(377) 542-119906-09-2025 [place] [address] Nephrology Progress Note Signed Patient: Smion Lott MR#: [id number] : 1950 Acct:[id number] Age/Sex: 74 / M Adm Date: 5 Loc: Room: [address] [place] [address] Type: ADM IN Attending Dr: Julian Jones MD Copies to: ~ Date of Service: 09/13/2024 Subjective Subjective Narrative: This is a 74-year-old male with a medical history of ESRD on HD, liver cirrhosis, hepatitis C, chronic left-sided hydronephrosis, nephrolithiasis, CVA,PAD, BPH, T2DM, bilateral diabetic foot ulcer presented to the emergency room for change in mental status. Patient has a ESRD due to the diabetic nep hropathyand hypertensive nephrosclerosis and currently goes to the [facility] dialysis unit 3 times a week on MWF schedule. He currently has AV fistula as a dialysis access and has been on dialysis sinceJuly 2023. On evaluation in emergency room patient was found to have a leukocytosis and was given empiric ertapenem for possible sepsis. He had multiple imaging done including CTA abdomen pelvis which showed no acute findings or evidence of PE. He also had a CT head which was negative. Patient chest x-ray was also negative for any acute finding. Nephrology is consulted for ESRD management duringthe hospital stay. Interim history Patient is being seen and examined on hemodialysis. He currently has no symptoms. He is currently on meropenem and vancomycin. Wound culture showed Staph aureus, E. coli and Proteus propolis. Blood culture showed no growth. Patient has abdominal discomfort. Nausea and vomiting are improving. C. difficile was negative. Troponin stabilized. He denies any chest pain. Exam Physical Exam Vital Signs: Temp Pulse Resp BP Pulse Ox O2 Del Method O2 Flow Rate 36.3 C L 57 L 16 89/50 L 98 Room Air 90 09/13/24 14:03 09/13/24 14:03 09/13/24 14:03 09/13/24 14:03 09/13/24 13:24 09/13/24 13:24 09/12/24 04:00 Narrative: General: Looks ill and older than [...] alert oriented x3. No focal deficits Extremity. Patient has a chronic lower extremity edema. Both feet wrapped withdressing. Left foot s/p TMA with reported full-thickness ulceration on the plantar surface. Skin: No skin rash. Objective Intake and Output I&O: Intake & Output 09/10/24 09/11/24 09/12/24 09/13/24 23:59 23:59 23:59 23:59 Intake Total 1100 / 1100 200 / 200 500 / 500 800 / 800 Output Total 0 / 0 2443 / 2443 Balance 1100 / 1100 200 / 200 500 / 500 -1643 / -1643 Weight 94.7 kg 94.7 kg 98.5 kg 99.5 kg Meds and Allergies Meds: Active Medications Acetaminophen (Acetaminophen 325 Mg Tablet) 650 mg PO Q6HR PRN PRN Reason: Pain Scale 1 - 3 or fever Stop: 09/10/25 21:18 Ammonium Lactate (Ammonium Lactate 12% Lot 226 Gm Bottle) 1 applic TOPICAL DAILY [facility] Stop: 09/11/25 08:59 Last Admin: 09/13/24 14:12 Dose: 1 applic Clopidogrel Bisulfate (Clopidogrel Bisulfate 75 Mg Tablet) 75 mg PO DAILY [facility] Stop: 09/11/25 08:59 Last Admin: 09/13/24 14:12 Dose: 75 mg Darbepoetin Romel (Darbepoetin Romel In Polysorbat 40 Mcg/Ml Vial) 40 mcg IV- PUSHWe@1000 JULIANN; Protocol Stop: 09/15/25 09:59 Dextrose (Dextrose 50% In Water 25 Gm/50 Ml Syringe) 0 gm IV-PUSH PRN PRN PRN Reason: Hypoglycemia Stop: 09/10/25 22:29 Docusate Sodium (Docusate 100 Mg Capsule) 200 mg PO BID PRN PRN Reason: Constipation Stop: 09/13/25 08:45 Duloxetine HCl (Duloxetine 30 Mg Capsule.) 60 mg PO QHS [facility] Stop: 09/11/25 21:59 Last Admin: 09/12/24 21:24 Dose: 60 mg Ferrous Sulfate (Ferrous Sulfate 324 Mg Tablet.) 324 mg PO DAILY [facility] Stop: 09/11/25 08:59 Last Admin: 09/13/24 14:13 Dose: 324 mg Gabapentin (Gabapentin 300 Mg Capsule) 300 mg PO QHS [facility] Stop: 09/11/25 21:59 Last Admin: 09/12/24 21:24 Dose: 300 mg Glucose (Dextrose 40% Gel 15 Gm Tube) 0 gm PO PRN PRN PRN Reason: Hypoglycemia Stop: 09/10/25 22:29 Heparin Sodium (Porcine) (Heparin 10,000 Unit/10 Ml Vial) 3,000 unit IV PRN PRN PRN Reason: Dialysis Stop: 09/13/25 09:08 Last Admin: 09/13/24 09:51 Dose: 3,000 unit Heparin Sodium (Porcine) (Heparin 10,000 Unit/10 Ml Vial) 1,500 unit IV PRN PRN PRN Reason: Dialysis Stop: 09/13/25 09:08 Last Admin: 09/13/24 09:51 Dose: 1,500 unit Meropenem (Merrem) 0.5 gm in 100 mls @ 33.333 mls/hr IV Q24H [facility] Last Admin: 09/12/24 21:24 Dose: 200 mls/hr Sodium Chloride (0.9% Sodium Chloride 1,000 Ml) 1,000 mls @ 0 mls/hr MISCELLANE.Q0M PRN PRN Reason: Dialysis Stop: 09/13/25 09:08 Last Infusion: 09/13/24 09:52 Dose: Infused Vancomycin HCl (Vancomycin) 1 gm in 250 mls @ 250 mls/hr IV ONCE ONE Stop: 09/13/24 17:59 Insulin Aspart (Insulin Aspart 300 Units/3 Ml) 0 units SUBCUT TID.WM.HS [facility]; Protocol Stop: 09/11/25 07:59 Last Admin: 09/13/24 14:12 Dose: 2 units Insulin Glargine (Insulin Glargine 300 Units/3 Ml Insuln.Pen) 36 units SUBCUT DAILY [facility] Stop: 09/11/25 12:29 Last Admin: 09/13/24 14:12 Dose: 36 units Melatonin (Melatonin 5 Mg Tablet) 5 mg PO HS PRN PRN Reason: Insomnia Stop: 09/11/25 00:03 Last Admin: 09/12/24 21:27 Dose: 5 mg Metoprolol Succinate (Metoprolol Succinate 25 Mg Tab.Er.24h) 12.5 mg PO DAILY [facility] Stop: 09/11/25 12:29 Last Admin: 09/13/24 14:13 Dose: Not Given Ondansetron HCl (Ondansetron 4 Mg/2 Ml Vial) 4 mg IV-PUSH Q8H PRN PRN Reason: Nausea And Vomiting Stop: 09/10/25 21:18 Oxycodone/Acetaminophen (Oxycodone/Acetaminophen 5-325 Mg Tablet) 1 tab PO Q4H PRN PRN Reason: Pain Scale 4 - 7 Prochlorperazine Edisylate (Prochlorperazine Edisylate 10 Mg/2 Ml Vial) 5 mg IMQ4H PRN PRN Reason: Nausea And Vomiting Stop: 09/10/25 21:18 Sodium Chloride (Sodium Chloride 0.9 % 10 Ml Syringe) 0 ml IV-PUSH PRN PRN PRN Reason: Flush Stop: 09/10/25 17:16 Last Admin: 09/10/24 20:16 Dose: 10 ml Sodium Chloride (Sodium Chloride 0.9 % 10 Ml Syringe) 0 ml IV-PUSH PRN PRN PRN Reason: Flush Stop: 09/13/25 09:08 Last Admin: 09/13/24 09:51 Dose: 10 ml Vancomycin HCl (Vancomycin - Pharmacy Dosing 1 Each Miscell) 1 each IV ONCE PRN; Protocol PRN Reason: ZZ.Pharmacy Consult Allergies codeine Allergy (Unknown, Verified 09/10/24 17:18) Unknown Reaction lisinopril Allergy (Unknown, Verified 09/10/24 17:18) Swelling of Lip/Tongue/Throat, anaphylaxis Results - Nephrology Labs 09/13/24 06:27 09/13/24 06:27 Labs: 09/13/24 06:27 BUN 64 H Creatinine 10.14 H D Albumin 3.1 L Radiology Impressions Impressions - last 24 hours: Impressions PVR 09/11/24 11:57 IMPRESSION: No quantitative information is available from this examination due to incompressibility. Impression dictated by: Fawad Rocha M.D. 09/13/2024 9:02 AM Dictation Location: [place] [address] Any impression(s) listed above is documentation that was entered by the reading physician into a diagnostic report(s) for Simon Lott. I have reviewed the report(s) and am incorporating any findings in the treatment plan of this patient where applicable. A&P - Nephrology Assessment/Plan (1) ESRD (end stage renal disease) on dialysis: Assessment/Problem Details: He has a ESRD due to diabetic nephropathy and hypertensive nephrosclerosis. He has been on dialysissince July 2023 and currently goes to the [facility] 3 times a week (2) Diabetic foot ulcer: Assessment/Problem Details: Patient currently on vancomycin and meropenem. WBCs count is improving. ID is following. Wound culture showed staph aureus, E. coli and Proteus Mirabillis (3) Anemia of renal disease: Assessment/Problem Details: His hemoglobin below the goal. He receives Aranesp with hemodialysis. (4) Hypertensive chronic kidney disease with stage 5 chronic kidney disease or end stage renal disease: Assessment/Problem Details: His blood pressure is controlled. He currently takes multiple antihypertensive occasions. (5) Type 2 diabetes mellitus with diabetic chronic kidney disease: Assessment/Problem Details: He has insulin-dependent type 2 diabetes mellitus and currently takes insulin Levemir at home. Plan * Hemodialysis today for 4 hours, potassium is low, will change to 4K bath. 2.5 to 3 L ultrafiltration as tolerated by blood pressure. Patient on heparin 3000 loading dose and 1500 mL dose. * Continue vancomycin and meropenem. ID recommendation, dose is being adjusted by the pharmacy to his renal status * Continue metoprolol 12.5 mg daily. Blood pressure drops with ultrafiltration, he is on midodrine during dialysis as needed. * Hemoglobin is low in the setting of infection and CKD. Patient on darbepoetin romel 40 mcg weekly on Friday. * Monitor daily intake, output and renal panel to adjust medications and dialysis prescription as indicated. Documented By: Johan Taylor MD 09/13/24 1553 Signed By: 09/13/24 1608 [facility]06-09-2025 [place] [address] Hospitalist Progress Note Signed Patient: Simon Lott MR#: [id number] : 1950 Acct:[id number] Age/Sex: 74 / M Adm Date: 5 Loc: Room: [address] [place] [address] Type: ADM IN Attending Dr: Julian Jones MD Copies to: ~ Date of Service: 09/13/2024 Subjective Subjective Narrative: Patient seen and evaluated at bedside and at dialysis. He has remained afebrile here and leukocytosis is down to 12.7. Patient states he feels well today and denies fevers or chills. Denies pain, SOB, N/V. Reports resolution in diarrhea. BP on the low side, but patient denies lightheadedness, dizziness or other symptoms. Exam Physical Exam Vital Signs: Temp Pulse Resp BP Pulse Ox O2 Del Method O2 Flow Rate 98 F 89 18 77/48 L 98 Room Air 90 09/13/24 09:00 09/13/24 10:30 09/13/24 09:00 09/13/24 10:30 09/13/24 09:00 09/13/24 09:00 09/12/24 04:00 Narrative: Constitutional: more interactive today, no acute distress, nontoxic appearing HEENT: mucous membranes moist Heart: RRR, no murmurs, rubs, gallops Lungs: CTA b/l, no wheezes or rales Abdomen: soft, nontender, nondistended MSK: no joint swelling or erythema noted Extremities: feet wrapped in dressing, very thick and dry skin of feet Neuro: awake, alert, and oriented x3, no focal neurological deficits noted Psych: appropriate and cooperative Objective Lab Results 09/13/24 06:27 09/13/24 06:27 Microbiology Results Microbiology 09/10/24 23:59 Foot,Left - Middle Superficial Wound Culture - Final Staphylococcus aureus Escherichia coli Proteus mirabilis 09/10/24 23:59 Foot,Right - Other Superficial Wound Culture - Preliminary Staphylococcus aureus Proteus mirabilis Pseudomonas aeruginosa Gram Negative Bacilli#3 09/10/24 18:50 Blood - Left Hand Blood Culture - Preliminary No Growth 2 Days 09/10/24 17:59 Blood - Left Forearm Blood Culture - Preliminary No Growth 2 Days Meds Allergies and Active Meds Allergies codeine Allergy (Unknown, Verified 09/10/24 17:18) Unknown Reaction lisinopril Allergy (Unknown, Verified 09/10/24 17:18) Swelling of Lip/Tongue/Throat, anaphylaxis Active Meds: Active Medications Generic Name Dose Route Start Last Admin Trade Name Freq PRN Reason Stop Dose Admin Acetaminophen 650 mg 09/10/24 21:19 Acetaminophen 325 Mg Tablet PO 09/10/25 21:18 Q6HR PRN Pain Scale 1 - 3 or fever Ammonium Lactate 1 applic 09/11/24 09:00 09/12/24 08:12 Ammonium Lactate 12% Lot 226 Gm Bottle TOPICAL 09/11/25 08:59 1 applic DAILY JULIANN Administration Clopidogrel Bisulfate 75 mg 09/11/24 09:00 09/12/24 08:10 Clopidogrel Bisulfate 75 Mg Tablet PO 09/11/25 08:59 75 mg DAILY JULIANN Administration Darbepoetin Romel 40 mcg 09/15/24 10:00 Darbepoetin Romel In Polysorbat 40 Mcg/Ml Vial IV-PUSH 09/15/25 09:59 We@1000 [facility] Protocol Dextrose 0 gm 09/10/24 22:30 Dextrose 50% In Water 25 Gm/50 Ml Syringe IV-PUSH 09/10/25 22:29 PRN PRN Hypoglycemia Docusate Sodium 200 mg 09/13/24 08:46 Docusate 100 Mg Capsule PO 09/13/25 08:45 BID PRN Constipation Duloxetine HCl 60 mg 09/11/24 22:00 09/12/24 21:24 Duloxetine 30 [address]Dr IYER 09/11/25 21:59 60 mg QHS JULIANN Administration Ferrous Sulfate 324 mg 09/11/24 09:00 09/12/24 08:10 Ferrous Sulfate 324 [address] Tablet[address]Dr IYER 09/11/25 08:59 324 mg DAILY JULIANN Administration Gabapentin 300 mg 09/11/24 22:00 09/12/24 21:24 Gabapentin 300 Mg Capsule PO 09/11/25 21:59 300 mg QHS JULIANN Administration Glucose 0 gm 09/10/24 22:30 Dextrose 40% Gel 15 Gm Tube PO 09/10/25 22:29 PRN PRN Hypoglycemia Heparin Sodium (Porcine) 3,000 unit 09/13/24 09:09 09/13/24 09:51 Heparin 10,000 Unit/10 Ml Vial IV 09/13/25 09:08 3,000 unit PRN PRN Administration Dialysis Heparin Sodium (Porcine) 1,500 unit 09/13/24 09:09 09/13/24 09:51 Heparin 10,000 Unit/10 Ml Vial IV 09/13/25 09:08 1,500 unit PRN PRN Administration Dialysis Meropenem 0.5 gm in 100 mls @ 33.333 mls/hr 09/11/24 21:30 09/12/24 21:24 Merrem IV 200 mls/hr Q24H JULIANN Administration Sodium Chloride 1,000 mls @ 0 mls/hr 09/13/24 09:09 09/13/24 09:52 0.9% Sodium Chloride 1,000 Ml MISCELLANE 09/13/25 09:08 Infused .Q0M PRN Infusion Dialysis As Directed Vancomycin HCl 1 gm in 250 mls @ 250 mls/hr 09/13/24 17:00 Vancomycin IV 09/13/24 17:59 ONCE ONE Insulin Aspart 0 units 09/11/24 08:00 09/13/24 09:09 Insulin Aspart 300 Units/3 Ml SUBCUT 09/11/25 07:59 Not Given TID.WM.HS JULIANN Protocol Insulin Glargine 36 units 09/11/24 12:30 09/12/24 08:11 Insulin Glargine 300 Units/3 Ml Insuln.Pen SUBCUT 09/11/25 12:29 36 units DAILY JULIANN Administration Melatonin 5 mg 09/11/24 00:04 09/12/24 21:27 Melatonin 5 Mg Tablet PO 09/11/25 00:03 5 mg HS PRN Administration Insomnia Metoprolol Succinate 12.5 mg 09/11/24 12:30 09/12/24 09:25 Metoprolol Succinate 25 Mg Tab.Er.24h PO 09/11/25 12:29 Not Given DAILY JLUIANN Ondansetron HCl 4 mg 09/10/24 21:19 Ondansetron 4 Mg/2 Ml Vial IV-PUSH 09/10/25 21:18 Q8H PRN Nausea And Vomiting Oxycodone/Acetaminophen 1 tab 09/10/24 21:19 Oxycodone/Acetaminophen 5-325 Mg Tablet PO Q4H PRN Pain Scale 4 - 7 Prochlorperazine Edisylate 5 mg 09/10/24 21:19 Prochlorperazine Edisylate 10 Mg/2 Ml Vial IM 09/10/25 21:18 Q4H PRN Nausea And Vomiting Sodium Chloride 0 ml 09/10/24 17:17 09/10/24 20:16 Sodium Chloride 0.9 % 10 Ml Syringe IV-PUSH 09/10/25 17:16 10 ml PRN PRN Administration Flush Sodium Chloride 0 ml 09/13/24 09:09 09/13/24 09:51 Sodium Chloride 0.9 % 10 Ml Syringe IV-PUSH 09/13/25 09:08 10 ml PRN PRN Administration Flush Vancomycin HCl 1 each 09/10/24 22:02 Vancomycin - Pharmacy Dosing 1 Each Miscell IV ONCE PRN ZZ.Pharmacy Consult Protocol A&P - Hospitalist Assessment/Plan (1) Elevated troponin I level: (2) Nausea: (3) Diabetic foot ulcer: (4) ESRD (end stage renal disease) on dialysis: Plan Hospital day #3 for 74yo with ESRD on dialysis, HTN, HLD, hx of CVA, diabetes oninsulin, chronic pain admitted for elevated troponin and N/V/D. Elevated troponin likely demand ischemia from dehydration and infection Elevated CPK - troponin stabilized, continues to deny CP - admitted to tele - echo pending N/V/D - improved Leukocytosis - improving - C. diff testing and stool cultures negative - pt denying symptoms today - possible gastroenteritis Diabetic foot ulcer- chronic with h/o MRDO and VRE 2022 - appreciate Podiatry recommendations- not suspicious as cause of leukocytosis - continue vancomycin and meropenem, narrow with cultures - CRP downtrending - Blood culture no growth to day 2 - appreciate ID recommendations Chronic ESRD on HD- consulted nephrology, dialysis days M/W/F HLD - hold atorvastatin, will restart with d/c HTN - no medications Hx of CVA - clopidogrel T2DM- fingersticks ACHS, SSIC, basal insulin Chronic pain- OARRs report checked, gabapentin dose should be 300mg qhs discussed with patient and all questions addressed. plan to discharge tomorrow with oral antibiotics for total of 7 days if patient's blood pressure improves. DVT PPx?SCDs Diet order?Renal CODE STATUS?full code Attending Physician Attestation: I personally reviewed the history, performed the laureano elements of the exam, formulated the plan of care and confirmed the written note. I agree with the findings and plan as documented in this note and have edited it if needed to reflect my findings and plan. Julian Ceron MD Documented By: Julian Jones MD 09/13/24 11 10 Signed By: 09/13/24 1449 09/13/24 1134 [facility]06-09-2025 Consult note Author Riya Pitt [facility] HospitalNote Date/TimeJune 2024 10:28[place] [address] Infect. Disease Consult Note Signed Patient: Simon Lott MR#: [id number] : 1950 Acct:[id number] Age/Sex: 74 / M Adm Date: 5 Loc: Room: [address]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 Assessment Notes Treatment Notes Treatment Clinical Notes Feb, CKD (chronic kidney disease) stage 4, GFR 15-29 ml/min (ICD-10 - N18.4) Patient has advanced CKD due to diabetic nephropathy, hypertension and obstructive nephropathy. Patient has history of left hydronephrosis needed percutaneous nephrostomy tube placement which was removed 3 months ago. Repeat renal ultrasound revealed persistent left hydroureteronephrosis. Spot urine showed significant proteinuria 10 g/g [...] fistula preparation. Will refer to vascular surgery. Feb,Hydronephrosis (ICD-10 - N13.30)Patient has history of nephrolithiasis with left-sided hydronephrosis. Patient is supposed to follow with Dr. CALZADA in urology office. Patient had left percutaneous nephrostomy tube placed which was removed 3 months ago. Patient has been refusing to follow-up with urology and he did refuse intervention during hospitalization on October 2022. Feb,Hyperkalemia (ICD-10 - E87.5)Potassium in the high range of normal related to progressive chronic kidney disease and obstructiveuropathy. He is on potassium supplement that will be stopped. Continue furosemide 40 mg twice a day. Feb,Hypertensive chronic kidney disease with stage 1 through [...] progression of CKD with low blood pressure. Feb,iabetic nephropathy associated with type 2 diabetes mellitus (ICD- 10 - E11.21)He follow-up with [facility]. 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 Patient has borderline iron stores on ferrous sulfate. Folic acid level is low. He has a borderline B12 on multivitamins. He follow-up with [facility] [place] and he has been on Aranesp. Recheck CBC, iron stores, B12 and folic acid with next blood work. Feb,AD (peripheral artery disease) (ICD-10 - I73.9)Patient has history of peripheral arterial disease. He has a left tarsometatarsal amputation. He has a right foot wound. He is currently on meropenem via PICC line. He follow-up with pediatric. Feb,Nephrolithiasis (ICD-10 - N20.0)Patient has bilateral nephrolithiasis with recurrent left hydronephrosis. He was referred to urology as stated above. 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 He has elevated phosphorus. We will add calcium acetate 2 tablets with eachmeal. Low phosphorus diet was addressed. Recheck phosphorus, calcium and intact PTH in 2 months. Anthony check 25-hydroxy vitamin D as well. [facility] Other 09-14-2023 Hospital Discharge instructions Patient Education [...] urethra. Follow these instructions at home: Take [id number]-bey-niqomyc and prescription medicines only as told by [...] provider. Document Revised: 10/10/2021 Document Reviewed: 10/10/2021 [employer] Patient Education 2022 [employer]. Follow Up Care 09/12/2022 14:12:32 With:Aric HOLLOWAY, VEENA Doyle, URO Address: When: Unknown [facility] 09-07-2023 Evaluation note* Encounter Date Diagnosis Assessment [...] acidosis. Patient is high risk for progression ofCKD and eventually will need dialysis. I did discuss with the patient the option of dialysis again and at this point, he is interested in conservative treatment only. He is not willing to proceed with AV fistula at this time. We will monitor renal function and will discuss with the patient again in case he change his mind. Dec,Hydronephrosis (ICD-10 - N13.30)Patient has history of nephrolithiasis with left-sided hydronephrosis. Patient is supposed to follow with Dr. CALZADA in urology office. Patient had left percutaneous nephrostomy tube placed which was removed 3 months ago. Patient has been refusing to follow-up with urology and he did refuse intervention during hospitalization on October 2022. Dec,Hyperkalemia (ICD-10 - E87.5)Potassium in the high range of normal related to progressive chronic kidney disease and obstructiveuropathy. Continue furosemide 40 mg twice a day. Dec,Hypertensive chronic kidney disease with stage 1 through [...] progression of CKD with low blood pressure. Dec,iabetic nephropathy associated with type 2 diabetes mellitus (ICD- 10 - E11.21)He follow-up with [facility]. 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 Patient has borderline iron stores on ferrous sulfate. Folic acid level is low. He has a borderline B12 on multivitamins. He follow-up with [facility] and he has been on Aranesp. We will add folic acid 1 mg p.o. daily. Continue oral ferrous sulfate and multivitamins. RecheckCBC, iron stores, B12 and folic acid with next blood work. Dec,AD (peripheral artery disease) (ICD-10 - I73.9)Patient has history of peripheral arterial disease. He has a left tarsometatarsal amputation. He has a right foot wound. He is currently on meropenem via PICC line. He follow-up with pediatric. Dec,Nephrolithiasis (ICD-10 - N20.0)Patient has bilateral nephrolithiasis with recurrent left hydronephrosis. He was referred to urology as stated above. [facility] Other 08-03-2023 Evaluation note* Encounter Date Diagnosis Assessment Notes Treatment Notes Treatment Clinical Notes Nov, Bacterial infection due to Rowena tia (ICD-10 - A49.8) So follow up today is from his PICC infection with Serratia. He is doing well overall. No concerns.Overall his PICC was removed in the hosptial. His right foot wound is chronic. He has yet to see his quality review specialist for this since being out of the hospital. I personally have treated him with IV abx numerous times for this non healing foot infection. It will improve but never has healed. Nov,hronic ulcer of right foot with fat layer exposed (ICD-10 - L97.512)Urged him to see his quality review specialist. After multiple repeated rounds of IV antibiotics for this right foot infection just seems there is some positve response to abx but ultimately another infection sets in given this non Nov,Osteomyelitis of right foot, unspecified type (ICD-10 - M86.9) Nov,Other specified bacterial agents as the cause of diseases classified elsewhere (ICD-10 - B96.89) [facility] Other 07-20-2023 Hospital Discharge instructionsAmbulatory Orders* Initiate [...] control Provide education on high risk fall [facility] Work Phone: 1(400) 406-208007-20-2023 Progress note Author Riya Pitt [facility] October 24, 2022 10:02amNote Date/TimeJuly 2022 10:02[place] [address] Infect. Disease Progress Note Signed Patient: Simon Lott MR#: [id number] : 1950 Acct:[id number] Age/Sex: 72 / M Adm Date: 3 Loc: Room: [address] [place] [address] Type: ADM IN Attending Dr: Riya Sampson [...] 5,000 Unit/Ml Vial) 5,000 unit SUBCUT Q8HR [facility] Stop: 10/22/23 21:59 Last Admin: 10/24/22 05:31 Dose: 5,000 unit Hydralazine HCl (Hydralazine 20 Mg/Ml Vial) 20 mg IV-PUSH Q2H PRN PRN Reason: SBP > 165 Stop: 10/23/23 16:35 Aztreonam (Azactam) 2 gm in 100 mls @ 200 mls/hr IV Q8H [facility] Last Infusion: 10/24/22 06:48 Dose: Infused Ceftazidime/Avibactam 0.94 gm/ (Sodium Chloride) 100 mls @ 50 mls/hr IV Q12H [facility]; Protocol Stop: 10/22/23 22:29 Last Infusion: 10/24/22 03:20 Dose: Infused Insulin Aspart (Insulin Aspart 300 Units/3 Ml Insuln.Pen) 0 units SUBCUT ACHS [facility]; Protocol Stop: 10/23/23 07:29 Last Admin: 10/24/22 06:47 Dose: Not Given Insulin Glargine (Insulin Glargine 300 Units/3 Ml Insuln.Pen) 42 units SUBCUT DAILY [facility] Stop: 10/23/23 08:59 Last Admin: 10/24/22 08:57 Dose: 42 units Melatonin (Melatonin 5 Mg Tablet) 5 mg PO HS PRN PRN Reason: Insomnia Stop: 10/22/23 20:39 Nifedipine (Nifedipine Er.24hr 90 Mg Tab.Er.24) 90 mg PO DAILY [facility] Stop: 10/23/23 08:59 Last Admin: 10/24/22 08:56 Dose: 90 mg Polyethylene Glycol (Polyethylene Glycol 3350 17 Gm Powd.Pack) 17 gm PO DAILY [facility] Stop: 10/23/23 08:59 Last Admin: 10/24/22 08:56 Dose: 17 gm Potassium Chloride (Potassium Chloride Er 20 Meq Tab.Er.Prt) 20 meq PO DAILY [facility] Stop: 10/23/23 08:59 Last Admin: 10/24/22 08:56 Dose: 20 meq Sodium Bicarbonate (Sodium Bicarbonate 650 Mg Tablet) 1,300 mg PO TID [facility] Stop: 10/22/23 21:59 Last Admin: 10/24/22 08:56 [...] stated in the HPI I did yesterday. Hisblood cultures repeated from the remain negative at 1 day. Blood cultures from and then pr evious had grown the stenotrophomonas as well as the Esteban bacterium. From my standpoint though the foot again is growing different bacteria this was asuperficial culture and is likely representation of colonization as he just was on IV meropenem for 6 weeks. Ultimately follows with Dr. Laoy Barba. From his recent bacteremia with stenotrophomonas and now the PICC line which is likelythe source has been pulled. Favor oral Levaquin potentially for discharge for continued therapy as this would negate another PICC line for being placed given his noncompliance as well as hygienic challenges Documented By: Riya Pitt MD 10/24/22 0957 Signed By: <Electronically signed by MD Riya Pitt> 10/24/[address] [place] [address] Work Phone: 1(323) 333-859307-19-2023 Progress note Author Riya Sampson [facility] October 23, 2022 1:21pmNote Date/TimeJuly 2022 1:11pm[place] [address] Hospitalist Progress Note Signed Patient: Simon Lott MR#: [id number] : 1950 Acct:[id number] Age/Sex: 72 / M Adm Date: 3 Loc: Room: [address] [place] [address] Type: ADM IN Attending Dr: Riya Sampson [...] clubbing, cyanosis. Large lymphedematous lower extremities bilaterally, appropriatedressing in place to right lower extremity NEUROLOGICAL: [...] edematous in the lower extremities however I suspectmuch of this is chronic. We will continue [...] signed by Riya Sampson DO> 10/23/22 1321 [facility] Work Phone: 1(380) 750-903107-19-2023 Consult note Author Riya Pitt [facility] October 23, 2022 11:44amNote Date/TimeJuly 2022 11:32[place] [address] Infect. Disease Consult Note Signed Patient: Simon Lott MR#: [id number] : 1950 Acct:[id number] Age/Sex: 72 / M Adm Date: 3 Loc: Room: [address] [place] [address] Type: ADM IN Attending Dr: Riya Sampson DO Copies to: ELÍAS Quigley DO Michael S Blank, MD~ HPI Data of Consult Consult date: 10/23/22 Requesting Physician: Riya Sampson DO Primary Care Provider: ELÍAS Quigley Consult Narrative History of present illness: Mr. Lott is a 72 year old male who is known to me from multiple hospital stays and persistentnonhealing right foot infection. He has been following with Dr. Gayle in [place]. He was discharged Back on September 12 and the plan was for him to stay on IV meropenem for 6 weeks to target osteomyelitisof the right heel. I have not seen him since then though [facility] received many phone calls about him.He had gone to emergency room October 13 [...] finally came back to the hospital and hadrepeat blood cultures drawn and again they are growing stenotrophomonas. He has a PICCline in his left upper extremity that has been receiving meropenem for. Patientstates he feels fine and denies any systemic symptoms of infection. He was readmitted last night and agreed to stay. He is now on Avycaz. CC: Riya Sampson, DO Review of Systems Review of Systems All other systems reviewed & are negative unless noted below or in HPI [facility] Attestation Statement: The following information was validated [...] Substance Use Type: Alcohol [facility] Allergies and Medications Allergies and Active Meds Allergies codeine Allergy (Verified 10/21/22 12:39) Unknown Reaction lisinopril Allergy (Verified 10/21/22 12:39) Swelling of Lip/Tongue/Throat Active Medications Acarbose (Acarbose 50 Mg Tablet) 100 mg PO TID [facility] Stop: 10/22/23 21:59 Last Admin: 10/23/22 09:53 [...] 60 Mg Capsule.Dr) 60 mg PO QHS [facility] Stop: 10/22/23 21:59 Last Admin: 10/22/22 23:05 Dose: 60 mg Folic Acid (Folic Acid 1 Mg Tablet) 1 mg PO DAILY [facility] Stop: 10/23/23 08:59 Last Admin: 10/23/22 09:53 Dose: 1 mg Furosemide (Furosemide 40 Mg Tablet) 40 mg PO BID@0800,1600 [facility] Stop: 10/23/23 07:59 Last Admin: 10/23/22 09:53 Dose: 40 mg Gabapentin (Gabapentin 600 Mg Tablet) 600 mg PO QPM [facility] Stop: 10/22/23 20:59 Last Admin: 10/22/22 23:05 Dose: 600 mg Heparin Sodium (Porcine) (Heparin 5,000 Unit/Ml Vial) 5,000 unit SUBCUT Q8HR [facility] Stop: 10/22/23 21:59 Last Admin: 10/23/22 07:01 Dose: 5,000 unit Aztreonam (Azactam) 2 gm in 100 mls @ 200 mls/hr IV Q8H [facility] Last Admin: 10/23/22 07:02 Dose: 200 mls/hr Ceftazidime/Avibactam 0.94 gm/ (Sodium Chloride) 100 mls @ 50 mls/hr IV Q12H [facility]; Protocol Stop: 10/22/23 22:29 Last Admin: 10/22/22 22:59 Dose: 50 mls/hr Insulin Aspart (Insulin Aspart 300 Units/3 Ml Insuln.Pen) 0 units SUBCUT [facility]; Protocol Stop: 10/23/23 07:29 Last Admin: 10/23/22 [...] 650 Mg Tablet) 1,300 mg PO TID [facility] Stop: 10/22/23 21:59 Last Admin: 10/23/22 09:54 Dose: 1,300 mg Sodium Chloride (Sodium Chloride 0.9 % 10 Ml Syringe) 0 ml IV-PUSH PRN PRN PRN Reason: Flush Stop: 10/22/23 15:31 Last Admin: 10/22/22 22:24 Dose: 10 ml Tamsulosin HCl (Tamsulosin 0.4 Mg Cap.Er.24h) 0.4 mg PO BID [facility] Stop: 10/22/23 20:59 Last Admin: 10/23/22 09:53 [...] looks a lot betterthan it did back inJune. Ulcer over the left heel still with some drainage. Some ulcerations noted at the toes as wellon the right. Neuro General: patient oriented x3 [...] (NA Multiplex Assay) - Final Stenotrophomonas maltophilia Chryseobacterium gleum A&P - Infectious Disease (1) Infection due to Stenotrophomonas maltophilia: Status: Acute (2) Bacteremia: Status: Acute (3) Left against medical advice: Status: Acute Plan Patient has had positive blood cultures for stenotrophomonas since October 13. He has not followed withmedical advice about coming back to the emergency [...] it is externally. He follows with in [place]. Compared to my previous evaluation of his [...] signed by MD Riya Pitt> 10/23/22 1144 [facility] Work Phone: 1(938) 392-618207-18-2023 History and physical note Author Riya Sampson [facility] October 22, 2022 9:37pmNote Date/TimeJuly 2022 9:37[place] [address] Hospitalist H&P Signed Patient: Simon Lott MR#: [id number] : 1950 Acct:[id number] Age/Sex: 72 / M Adm Date: 3 Loc: Room: [address] [place] [address] Type: ADM IN Attending Dr: Riya Sampson DO Copies to: Mervat Santiago NP-Aura Sampson, ~ HPI DATE OF EXAMINATION: 10/22/22 CHIEF COMPLAINT: Positive blood cultures. HISTORY OF PRESENT ILLNESS: This patient is a 72-year-old diabetic male with chronic kidney disease stage V who presents to theemergency department after being asked to return for positive blood cultures previously. Of note hewas hospitalized here for cellulitis/osteomyelitis resulting from a [...] The patient finally returned to the ER yesterday10/21 however left AGAINST MEDICAL ADVICE prior to [...] in the ER and [facility] for further management and treatment. Physical Examination: GENERAL APPEARANCE: Alert, up in bed AAOx3 HEENT: NCAT, MMM NECK: Neck soft w/o masses, no JVD CARDIAC: Normal S1 and S2. No S3, S4 or murmurs. LUNGS: Clear to auscultation anteriorly ABDOMEN: Positive bowel sounds. Soft, nontender. No guarding or signs of an acute abdomen EXTREMITIES: No clubbing, cyanosis. Large lymphedematous lower extremities bilaterally, appropriatedressing in place to right lower extremity NEUROLOGICAL: [...] healing. Source of bacteremia very likely could bethe PICC line he currently has in place. [...] edematous in the lower extremities however I suspectmuch of this is chronic. We will continue [...] negative unless noted below or in HPI [facility] Medical History Alcohol abuse Amputated toe of [...] NONE X 7 MONTHS Social History Comments: [facility] Meds Medications and Allergies Allergies codeine Allergy [...] pen (Levemir FlexTouch U- 100 Insulin) 42 unitsubcut DAILY 05/18/21 [History Confirmed 10/21/22] melatonin 5 [...] 16:06 Lymph % (Auto) N/A 10/22/22 16:06 Nash % (Auto) N/A 10/22/22 16:06 Eos % (Auto) N/A 10/22/22 16:06 Baso % (Auto) N/A 10/22/22 16:06 Nucleat RBC Rel Count N/A 10/22/22 16:06 Neut # (Auto) N/A 10/22/22 16:06 Lymph # (Auto) N/A 10/22/22 16:06 Nash # (Auto) N/A 10/22/22 16:06 Eos # [...] setting as: INPATIENT because of an expectation ofan over 2 midnight stay. Estimated length of stay (# of days): 5 Documented By: Riya Sampson DO 10/22/22 21 04 Signed By: <Electronically signed by Riya Sampson DO> 10/22/22 132[address] [facility] Work Phone: 1(714) 724-150907-09-2023 Hospital Discharge instructions Additional Instructions Continue current meds Recheck with your private physician in 1 to 2 days [facility] are [facility]: 1(267) 340-476306-19-2023 Miscellaneous Notes* Telephone Encounter - Bri Fair - 09/23/2022 9:38 AM EDTSummary: tube removal Dr. Corbett took neph tube out in office. Patient no longer has any tubes. documented in this encounterPremier [facility]05-12-2023 NotePROCEDURE: XR FOOT RT MIN 3 VIEWS [...] Electronically authenticated by: PRAVEEN ESCUDERO Date: 2022-08-16 12:26[facility]04-27-[facility] Hospital Discharge instructions Patient Education 08/01/2022 10:02:33 [...] transplant. Follow these instructions at home: Take rxot-myt-mfhywpl and prescription medicines only as told by [...] provider. Document Revised: 07/11/2020 Document Reviewed: 07/11/2020 [employer] Patient Education 2022 [employer]. 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 He has a 10:30 [...] APRN.CNP July 24, 2022 documented in this encounterPremier Health [facility]04-15-2023 Progress note Author Jose M Landry [facility] July 20, 2022 10:58amNote Date/TimeApril 2022 1:48pmB[facility] [place] [address] Hem/Onc Follow Up Note - OP Signed Patient: Simon Lott MR#: [id number] : 1950 Acct:[id number] Age/Sex: 72 / M Type: REG RCR [...] disease and lacks enough endogenous erythropoietin to maintainhis hemoglobin. We will continue with Aranesp for [...] today. Patient states he was discharged from [facility] yesterday. No other concerns voicedat this time. HPI: This is a very nice 69-year-old -Citizen [place] gentleman who presents with mild anemia and [...] train on a bicycle. This happened on [facility] [address]. He denies any weight loss, significant or [...] new complaints. He does reside at the [facility] on [facility]. He may be moving. He has a [...] excited [facility]. He has a apartmentlined up. Was recently in our ER and then transferred to [facility] for L nephrostomy site with hematuria, [...] for coordination of care (as documented) and isme-fe-qkye counseling of patient and/or family. [facility] - Medical History Medical History: Medical History [...] NONE X 7 MONTHS Social History Comments: [facility] Additional Data - Additional Objective Data Height/Weight: [...] pen (Levemir FlexTouch U- 100 Insulin) 42 unitsubcut DAILY 05/18/21 [History Confirmed 07/17/22] melatonin 5 [...] Jose M Landry II, DO> 07/20/22 [address] [facility] Work Phone: [phone]) 253-287504-13-2023 NoteHNO ID: [id number] Author: Hallie [facility] RN Service: Care Management Author Type: Registered Nurse Type: Care Mgt Progress Note Filed: 07/18/2022 5:14 PM Note Text: CARE MANAGEMENT UTILIZATION REVIEW COMMITTEE CODE 44 (Admission Status Discrepancy Review) Admission Date: 07/17/2022 Patient's Initial Order is: Inpatient Date Received: July 18, 2022 Date Reviewed: July 18, 2022 Dr. 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 [facility]. . Telephone appointment request: Is this a new/fresh percutaneous tube? No routine telephone visit needed. Did you enter the photolithographer's name in the co-sign box (see the top left in this screen): Yes Any additional information that would be helpful to schedule this patient ? N/a.[facility] CenterIpohgtps05-77-0719 NoteHNO ID: [id number] Author: Arden Stockton MD Service: ? Author Type: Physician Type: Plan of Care Filed: 07/17/2022 3:58 AM Note Text: [facility]. Has nephrostomy tube. Cr 4.5 stable from two weeks ago. Renal pelvis hemorrhage on CT. ED tried to flush nephrostomy tube but were not successful. They already spoke with IR who recommended admissions with IR consult. No planned intervention as of now.[facility] CenterTygvribh97-35-7628 Miscellaneous Notes* Plan of Care - Arden Stockton MD - 07/17/2022 3:54 AM EDT [facility]. Has nephrostomy tube. Cr 4.5 stable from two weeks ago. Renal pelvis hemorrhage on CT. ED tried to flush nephrostomy tube but were not successful. They already spoke with IR who recommended admissions with IR consult. No planned intervention as of now. 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 Nephrostomy or nephroureteral (tube in the back) . Procedural appointment request: Does this tube need to be exchanged? Yes, How many weeks till next change? 10 weeks, Specific Physician? Yes, Mraco Arambula Michael., General Anesthesia Needed? No, Where can this procedure be scheduled? [facility]. . Telephone appointment request: Is this a new/fresh percutaneous tube? No routine telephone visit needed. Did you enter the photolithographer's name in the co-sign box (see the top left in this screen): Yes Any additional information that would be helpful to schedule this patient ? Patricia ReidMckay-Dee Hospital CenterZqbcasnp37-08-4526 Hospital Discharge instructions Patient Education 06/07/2022 09:12:43 [...] include: ?Spinach. ?Rhubarb. ?Beets. ?Potato chips and liberian fries. ?Nuts. If you regularly take a diuretic medicine, make sure to eat at least 1 2 fruits or vegetables high in potassium each day. These include: ?Avocado. ?Banana. ?[place], prune, carrot, or tomato juice. ?Baked potato. [...] Casseroles. Pizza. Lasagna. Frozen meals. Potato chips. Serbian fries. Summary You can reduce your risk [...] 07/19/2011 Document Revised: 07/14/2019 Document Reviewed: 03/04/2017 [employer] Patient Education 2020 [employer] Follow Up Care 04/26/2022 08:35:41 With:Kiko Corbett MD, URL, URO Address: When: Unknown [facility] Miguelangel 02-14-2023 NoteHNO ID: [id number] Author: Bridget Cochran RN Service: ? Author [...] left-sided hydronephrosis. - Per VIOLET Alas at [facility]: Left Nephrostomy tube to gravity drainage with reported good output. Color clear/yellow. Flushing easily. - Discussed signs and symptoms of infection. - Reviewed how to manage common tube related problems and emergency situations. - Tube care supplies adequate. - Routine tube change scheduled: TBD - MCFP drain plan: Follow up with Urology NEPH [...] call interventional radiology nurse line at [facility]: [phone]. 5) To change or schedule an appointment with interventional radiology please call scheduling at [facility]: [phone] (Option 1). SUBJECTIVE INTERVAL HPI: Simon Lott is a 72 year old male who presents today for follow up s/p placement of Left Nephrostomy catheter on 05/06/2022 for left-sided hydronephrosis. Patient denies pain, nausea, fever, chills, erythema, and discharge from the catheter site per VIO[facility] Al[facility] at [facility]. Nursing is flushing regularly without complications and [...] Take by mouth. GABAPEN (more content not included)...[facility]02-14-2023 History of Present illness Narrative* Bridget Cochran RN - 05/21/2022 3:15 PM EST IR TUBE CLINIC (IR) PROGRESS NOTE SERVICE DATE: May 21, 2022 SERVICE TIME: 15:15 CONSULTING SERVICE: Interventional Radiology IMPRESSION/RECOMMENDATIONS Simon Lott is a 72 year old male who presents today for follow up s/p placement of Left Nephrostomy catheter on 05/06/2022 for left-sided hydronephrosis. - Per VIOLET Alas at [facility]: Left Nephrostomy tube to gravity drainage with reported good output. Color clear/yellow. Flushing easily. - Discussed signs and symptoms of infection. - Reviewed how to manage common tube related problems and emergency situations. - Tube care supplies adequate. - Routine tube change scheduled: TBD - MCFP drain plan: Follow up with Urology NEPH [...] please call interventional radiology nurse line at [place]: [phone]. 5) To change or schedule an appointment with interventional radiology please call scheduling at [facility]: [phone] (Option 1). SUBJECTIVE INTERVAL HPI: Simon Lott is a 72 year old male who presents today for follow up s/p placement of Left Nephrostomy catheter on 05/06/2022 for left-sided hydronephrosis. Patient denies pain, nausea, fever, chills, erythema, and discharge from the catheter site per VIO[facility] Alas at [facility]. Nursing is flushing regularly without complications and [...] 21, 2022 TIME: 15:15 documented in this encounterPremier Health [facility] Center01-30-2023 NoteHNO ID: [id number] Author: Jessica Mckenna MD Service: Hospital Medicine Author Type: Physician Type: Plan of Care Filed: 05/06/2022 4:24 PM Note Text: Patient was here today for IR nephrostomy tube placement. He has left hydronephrosis. Purulent urine drained so he is being admitted for concern of urosepsis and antibiotic management.[facility] CenterZogfntjq40-68-9371 NoteHNO ID: [id number] Author: Lyly Verduzco RN Service: Radiology Author Type: Registered Nurse Type: Nursing Progress Note Filed: 05/06/2022 2:26 PM Note Text: Home going supplies placed on bed.[facility] CenterJjvjwmcj84-39-7748 NoteHNO ID: [id number] Author: Lyly Verduzco RN Service: Radiology Author Type: Registered Nurse Type: Nursing Progress Note Filed: 05/06/2022 2:26 PM Note Text: NOM notified about admitting patient post procedureMckay-Dee Hospital CenterAwbywytr31-60-2659 Note HNO ID: [id number] Author: Alejandro Flores MD Service: Interventional Radiology Author Type: Physician Type: Procedures Filed: 05/06/2022 3:01 PM Note Text: RADIOLOGY BRIEF PROCEDURE NOTE Procedure Date: May 06, 2022 Incision/Procedure Start Time: 1:38 PM Incision Close/Procedure End Time: 2:10 PM SURGEON(S)/PROCEDURALIST(S) AND MULTIPLE SPINDLE ROUTER OPERATOR(S): Alejandro Flores MD PROCEDURE: L PCN Placement [...] May 06, 2022 TIME: 2:15 PM PAGER/CONTACT #:[facility] [id number] NoteHNO ID: [id number] Author: Lyly Verduzco RN Service: Radiology Author Type: Registered Nurse Type: Patient Education Filed: 05/06/2022 1:35 PM Note Text: Printed post procedure instructions placed in patient [facility] 05-03-2022 NoteHNO ID: [id number] Author: Alejandro Flores MD Service: Interventional Radiology [...] not successful. Will continue to atttempt contacting them.[facility] CenterMnivsghl04-29-2909 Miscellaneous Notes* Telephone Encounter - Mile Birmingham RN - 05/03/2022 12:07 PM EST helper marble finisher called [phone] inquiring about patient's procedure today to clarify the plavix was held for five (5) days, as ordered. Jitendra Moreno said patient has been picked up by transportand rescheduled for this up-coming Friday. Director was told to have the patient come at 11:15 am, hold plavix, and initiated NPO after midnight for rescheduled procedure. documented in this encounterPremier Health [facility] Center01-20-2023 Hospital Discharge instructions Patient Education 04/26/2022 08:29:04 [...] transplant. Follow these instructions at home: Take lxot-spy-kouabqx and prescription medicines only as told by [...] 01/19/2008 Document Revised: 04/04/2018 Document Reviewed: 04/04/2018 [employer] Patient Education 2020 [employer]. Follow Up Care 04/23/2022 13:17:00 With:Aric HOLLOWAY, VEENA Doyle, URO Address: When: Unknown [facility] 01-17-2023 Miscellaneous Notes* Telephone Encounter - Matthew Maki RN - 04/23/2022 2:27 PM EST You are scheduled for a nephrostomy tube placement on 05/03/2022. You are to arrive at 10:30 am and [facility]: Enter through [place] [facility] entrance. Proceed to [...] drawn? Yes. To be drawn in pre-op. Electrical Sign Servicer/Transportation: How will you be arriving for your procedure? Ambulance service. You will need a responsible adult to accompany you to and from the procedure. Your regional driver is required to stay with you until you are taken into the procedure room. Spoke to director of purchasing at [facility] and gave all instructions. Stated patient would bearriving via amublance on stretcher. documented in this encounterPremier Health [facility] Center01-16-2023 Progress note Author Clara Chew [facility] April 22, 2022 11:57amNote Date/TimeJan2022 11:53[facility] [place] [address] Hem/Onc Follow Up Note - OP Signed Patient: Simon Lott MR#: [id number] : 1950 Acct:[id number] Age/Sex: 72 / M Type: REG RCR Copies to: ELÍAS Quigley~ Subjective Date/Time of Service: Date of Service: 04/22/2022 Time of Service: 11:49 Chief Complaint: Patient is here today for a 3 month follow up visit for anemia and go over labs. Icould not get weight HPI: This is a very nice 69-year-old -Citizen [place] gentleman who presents with mild anemia and [...] train on a bicycle. This happened on [facility] [address]. He denies any weight loss, significant or [...] new complaints. He does reside at the [facility] on [facility]. He may be moving. He has a [...] 10 point review of systems is negative [facility] - Medical History Medical History: Medical History [...] NONE X 7 MONTHS Social History Comments: [facility] Home Medications & Allergies Allergies codeine Allergy [...] pen (Levemir FlexTouch U- 100 Insulin) 42 unitsubcut DAILY 05/18/21 [History Confirmed 04/22/22] melatonin 5 [...] disease and lacks enough endogenous erythropoietin to maintainhis hemoglobin. We will continue with Aranesp for [...] for coordination of care (as documented) and swlv-zh-jrwl counseling of patient and/or family. Dictated By: Clara Chew APRN DD/ 1149 Signed By: <Electronically signed by TYSON Chew> 04/22/22 1157 [facility] Work Phone: 1(233) 105-848012-16-2022 Progress note Author Jose M Landry [facility] March 22, 2022 8:16amNote Date/TimeOct2021 11:[address] [place] [address] [place] [address] Hem/Onc Follow Up Note - OP Signed with Raisaenda Patient: Simon Lott MR#: [id number] : 1950 Acct:[id number] Age/Sex: 71 / M Type: REG RCR Copies to: AGUSTINA QuigleyC~ ADDENDUM1 He has a history of b12 [...] Addendum Signed By: 03/22/22815 Addendum Cosigned By: VERITO/ TD/TT: 03/22/22 Date of Service: 01/25/2022 Time of Service: 11:08 - Assessment & Plan (1) Anemia Plan: Multifactorial Anemia- CKD stage IV, history of iron deficiency creat up to 4.3 in jan 2022. He definitely has component of renal disease and lacks enough endogenous erythropoietin to maintainhis hemoglobin. We will continue with Aranesp for [...] with outside labs for review. Had B-12 andAranesp today. No concerns voiced. HPI: This is a very nice 69-year-old -Citizen [place] gentleman who presents with mild anemia and [...] train on a bicycle. This happened on [facility]. He denies any weight loss, significant or [...] new complaints. He does reside at the [facility] on [facility]. He may be moving. He has a [...] for coordination of care (as documented) and ummu-xx-hvjf counseling of patient and/or family. [facility] - Medical History Medical History: Medical History (Last Updated 01/11/22 @ 16:27 by Felicitas Cameron RN) Alcohol abuse Amputated toe of left [...] (Last Reviewed 01/11/22 @ 16:27 by Felicitas Cameron RN) History of appendectomy History of phacoemulsification [...] NONE X 7 MONTHS Social History Comments: [facility] Additional Data - Additional Objective Data Height/Weight: [...] pen (Levemir FlexTouch U- 100 Insulin) 42 unitsubcut DAILY 05/18/21 [History Confirmed 01/11/22] melatonin 5 [...] Jose M Landry II, DO> 01/25/22 1115 [facility] Work Phone: 1(955) 149-396210-27-2022 Evaluation note* Encounter Date Diagnosis Assessment Notes [...] up to 3.8 mg/dL. Patient is a [facility] and he has mild dementia and [...] improvement in renal function back to baseline. Jan,Hydronephrosis (ICD-10 - N13.30)Patient has recurrent hydronephrosis on the left side with hyperkalemia and metabolic acidosis. Will refer again to urology to follow-up on cystoscopy and stent placement. Patient did refuse the procedure during his hospital stay in November,. Risk of progression of CKD to ESRD related to obstructive uropathy has been discussed with the patient Jan,Hyperkalemia (ICD-10 - E87.5)Potassium in the high range of normal related to progressive chronic kidney disease and obstructiveuropathy. Will discontinue potassium supplement. Continue furosemide Jan,Hypertensive chronic kidney disease with stage 1 through [...] for progression to ESRD. 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 He stated that diabetes is reasonably controlled. 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 He was evaluated by Dr. Landry in the hospital. Jan,AD (peripheral artery disease) (ICD-10 - I73.9)Patient has history of peripheral arterial disease. He has a left tarsometatarsal amputation. He has a right foot wound with edema currently with wound VAC. He follow-up with wound clinic. Jan,Nephrolithiasis (ICD-10 - N20.0)Patient has bilateral nephrolithiasis with recurrent left hydronephrosis. He was referred to urology as stated above. [facility] Other 09-14-2022 Evaluation note* Encounter Date Diagnosis [...] the most crucial aspect at this point. [facility] 09-02-2022 Hospital Discharge instructions Patient Education [...] transplant. Follow these instructions at home: Take kgqz-sns-wesxyde and prescription medicines only as told by [...] 01/19/2008 Document Revised: 04/04/2018 Document Reviewed: 04/04/2018 [employer] Patient Education 2020 [employer]. 12/07/2021 09:43:20 Calorie Counting for Weight Loss [...] 03/24/2006 Document Revised: 12/11/2018 Document Reviewed: 02/21/2017 [employer] Patient Education 2020 [employer]. Follow Up Care 11/23/2021 11:37:24 With:Aric HOLLOWAY, VEENA Doyle, URO Address: When: Unknown [facility] 09-01-2022 Evaluation note* Encounter Date Diagnosis Assessment [...] erythematous and it is cool to touch. Dec,eceiving intravenous antibiotic treatment at home (ICD-10 - Z79.2) [facility] 09-01-2022 History of Present illness Narrative* Patient is new to this provider. [facility] a [facility], and has multiple cardiac risk factors including [...] very limited gets around in a wheelchair, [facility] resident. He is status post left transmetatarsal amputation, and his right foot is bandaged completely, for a nonhealing ulcer, which has been there for about 4 to 5 months. Followed by wound nurse once a week at the [facility]. * Continues to smoke. * EKG today normal sinus rhythm 90 bpm NH interval 180 ms QRS duration 112 ms [...] arise, * Sincerely, * Renata Wyatt MD [facility] DO Work Phone: [phone] 636-347109-01-2022 History of Present illness Narrative* Patient is new to this provider. [facility] in a [facility], and has multiple cardiac risk factors including [...] very limited gets around in a wheelchair, [facility] resident. He is status post left transmetatarsal amputation, and his right foot is bandaged completely, for a nonhealing ulcer, which has been there for about 4 to 5 months. Followed by wound nurse once a week at the [facility]. * Continues to smoke. * EKG today normal sinus rhythm 90 bpm NH interval 180 ms QRS duration 112 ms [...] arise, * Sincerely, * Renata Wyatt MD [facility] Work Phone: [phone] Discharge summary Author Landon Grullon [facility] November 21, 2021 7:38pmNote Date/TimeAugust 2021 5:27pm[place] [address] Discharge Summary Signed Patient: Simon Lott MR#: [id number] : 1950 Acct:[id number] Age/Sex: 71 / M Adm Date: 2 Loc: Room: [address] [place] [address]: Landon Grullon MD Copies to: [...] to Urology Routine 11/21/21 08:41 Consult to [employer] Routine Discharge Diagnosis (1) Type 2 diabetes [...] presented to the emergency department from his intermediate facility with sepsis. Patient was also noted to have acute kidney injury on his CKD stage I IIand nephrology was consulted for their assessment. Given his foot findings bothpodiatry and vascular surgery were consulted as well. He was also started on broad-spectrum antibiotic therapy with IVvancomycin and Invanz. Vascular surgery recommended likely BKA [...] patient was plan to continue this course athis intermediate facility. Also of note, patient found to have left-sided hydronephrosis on CT imaging of the abdomen and pelvis. Renal function remained essentially stable with creatinine of around 3.4, though this was higher than patient's previous baseline. In the past few months, patient didhave ureteral stent placed and stone removal by urology. Urology came to assess patient during thisvisit and given patient's stable creatinine, and his [...] Sodium 138, Potassium 3.8, Chloride 105, Carbon Ztckfwn91.6, BUN 45 H, Creatinine 3.41 H, Est GFR ( Amer) 22, Est GFR (Non-Af Amer) 18, Glucose 104H, Calcium 8.1 L 11/21/21 06:01: Corrected WBC 15.6 H, Uncorrected WBC Count 15.6 H, RBC 3.06 L, Hgb 8.3 L, Hct 25.9L, MCV 84.4, MCH 27.0 L, MCHC 32.0 L, RDW 17.7 H, Plt Count 263, MPV 10.6 H, Neut % (Auto) 54.1, Lymph % (Auto) 31.7, Nash % (Auto) 9.6, Eos% (Auto) 3.4, Baso % (Auto) 1.2, Neut # (Auto) 8.4 H, Lymph# (Auto) 5.0 H, Nash# (Auto) 1.5 H, Eos # (Auto) 0.5 [...] conversant Discharge Plan Discharge Plan Patient Disposition: director of home care hospice OR Care/Resident Activity: Ambulate as Tolerated Diet: Diabetic Additional Instructions: [facility] facility to manage care: - PT/OT eval [...] pads, secure with kerlix, then 4 inch jessenia wraps - Change dressing every 3 days: *Mepilex border foam to coccyx scarring for added protection - Maintain and perform routine care to sanchez catheter until seen by urology *Placed on 11/14/21 - [facility]. Instructions: [facility] COVID-19 Discharge Instructions Prescriptions: New furosemide 40 [...] was notified of your discharge andneed for cystoscopy.Please contact the office on 11/24/21 to reschedule the procedure. ) Documented By: Landon Grullon MD 2 1726 Signed By: <Electronically signed by Landon Grullon MD> 11/21/211937 [facility] Work Phone: [phone] Progress note Author [facility] November 21, 2021 5:16pmNote Date/TimeAugust 2021 5:16pm[place] [address] Nephrology Progress Note Signed Patient: Simon Lott MR#: [id number] : 1950 Acct:[id number] Age/Sex: 71 / M Adm Date: 2 Loc: Room: [address] [place] [address] Type: ADM IN Attending Dr: Landon Grullon MD Copies to: ~ Date of Service: 11/21/2021 Subjective Subjective Narrative: Mr. Lott is a 71-year male with medical history of CKD, diabetes mellitus, hypertension, anemia, secondary hyperparathyroidism, alcoholic liver disease, PAD, diabetic foot ulcer, CVA, hepatitisC and nephrolithiasis. He was transferred from the [facility] due to the fever. In ER, he was found to have hyperkalemia serum potassium 6.1 mg/L and metabolic acidosis with serum bicarbonate 17 mmol/L. Patient was also noted to have a leukocytosis and tachycardia. He had a Right foot x-ray whichshowed finding concerning for osteomyelitis of the fifth [...] preparation to discharge on antibiotics to his [facility]. He did refuse invasive intervention during hospitalization [...] for infected right foot. Vascular surgery recommended nonurgentBKA or AKA due to his severe PAD. [...] 324 Mg Tablet.) 324 mg PO MoWeFr@0900 [facility] Stop: 11/16/22 08:59 Last Admin: 11/21/21 09:22 Dose: 324 mg Folic Acid (Folic Acid 1 Mg Tablet) 1 mg PO DAILY [facility] Stop: 11/15/22 08:59 Last Admin: 11/21/21 09:22 Dose: 1 mg Furosemide (Furosemide 40 Mg Tablet) 40 mg PO BID@0800,1600 [facility] Stop: 11/21/22 07:59 Last Admin: 11/21/21 16:45 Dose: 40 mg Gabapentin (Gabapentin 600 Mg Tablet) 600 mg PO QPM [facility] Stop: 11/15/22 20:59 Last Admin: 11/20/21 21:13 Dose: 600 mg Glucose (Dextrose 40% Gel 15 Gm Tube) 0 gm PO PRN PRN PRN Reason: Hypoglycemia Stop: 11/14/22 17:37 Heparin Sodium (Porcine) (Heparin 5,000 Unit/Ml Vial) 5,000 unit SUBCUT Q12HR [facility] Stop: 11/14/22 20:59 Last Admin: 11/21/21 09:23 Dose: 5,000 unit Hydralazine HCl (Hydralazine 20 Mg/Ml Vial) 10 mg IV-PUSH Q4H PRN PRN Reason: Hypertension Stop: 11/14/22 21:49 Last Admin: 11/15/21 15:59 Dose: 10 mg Ertapenem 0.5 gm/ Sodium (Chloride) 100 mls @ 200 mls/hr IV Q24H [facility] Stop: 11/20/22 16:59 Last Admin: 11/20/21 17:30 Dose: 200 mls/hr Insulin Aspart (Insulin Aspart 300 Units/3 Ml Insuln.Pen) 0 units SUBCUT TID.WM.HS [facility]; Protocol Stop: 11/14/22 21:59 Last Admin: 11/21/21 13:48 Dose: Not Given Insulin Detemir (Insulin Detemir 300 Units/3 Ml Insuln.Pen) 42 units SUBCUT DAILY [facility] Stop: 11/15/22 08:59 Last Admin: 11/21/21 09:25 Dose: 42 units Losartan Potassium (Losartan 50 Mg Tablet) 50 mg PO DAILY [facility] Stop: 11/18/22 08:59 Last Admin: 11/21/21 09:22 [...] 30 Mg Tab.Er.24) 30 mg PO DAILY [facility] Stop: 11/18/22 15:39 Last Admin: 11/21/21 09:22 Dose: 30 mg Polyethylene Glycol (Polyethylene Glycol 3350 17 Gm Powd.Pack) 17 gm PO DAILY JULIANN Stop: 11/23/21 19:06 Last Admin: 11/21/21 09:22 Dose: 17 gm Saccharomyces Boulardii (Saccharomyces Boulardii 250 Mg Capsule) 250 mg PO BID.WITH.MEALS [facility] Stop: 11/15/22 07:59 Last Admin: 11/21/21 16:46 Dose: 250 mg Sodium Bicarbonate (Sodium Bicarbonate 650 Mg Tablet) 650 mg PO TID [facility] Stop: 11/15/22 13:59 Last Admin: 11/21/21 16:46 [...] Marino Dorsey M.D.11/21/2021 11:09 AM Dictation Location: [place] [address] Any impression(s) listed above is documentation that [...] Serum creatinine is slightly worse than baseline 2.5mg/dL in the setting of cellulitis however he [...] combination of the CKD, metabolic acidosis, potassium supplementand losartan. He is back on losartan with [...] CKD and iron deficiency. His hemoglobin is lowbut stable. His serum free light chain ratio, [...] * Patient will be discharged to his [facility] on vancomycin and ertapenem. He will follow-up with urology as outpatient to address left renal hydronephrosis. Patient had a recurrent nephrolithiasis with hydronephrosis with creatinine up to 5 mg/dL that improved with creatinine stabilized between2.5 to 3 mg/dL after stents and removal of kidney stones. Stone analysis showed evidence of calcium oxalate. Unfortunately, he is high risk for progression of CKD and he may require dialysis soon. He need to follow-up in renal clinic in 10 to 14 days with repeat renal panel and CBC to address blood pressureand diuretics and arrange for dialysis as indicated. Documented By: Johan Taylor MD 11/21/211709 Signed By: <Electronically signed by MD Johan Taylor> 11/21/211715 [facility] Work Phone: [phone]) 357-400808-17-2022 [facility]-2022 Progress note Author [facility] November 20, 2021 6:31pmNote Date/TimeAugust 2021 6:31[place] [address] Nephrology Progress Note Signed Patient: Simon Lott MR#: [id number] : 1950 Acct:[id number] Age/Sex: 71 / M Adm Date: 2 Loc: Room: [address] [place] [address] Type: ADM IN Attending Dr: Landon Grullon MD Copies to: ~ Date of Service: 11/20/2021 Subjective Subjective Narrative: Mr. Lott is a 71-year male with medical history of CKD, diabetes mellitus, hypertension, anemia, secondary hyperparathyroidism, alcoholic liver disease, PAD, diabetic foot ulcer, CVA, hepatitisC and nephrolithiasis. He was [facility] from the [facility] due to the fever. In ER, he was found to hve hyperkalemia serum potassium 6.1 mg/L and metabolic acidosis with serum bicarbonate 17 mmol/L. Patient was also noted to have a leukocytosis and tachycardia. He had a Right foot x-ray which showed finding concerning for osteomyelitis of the fifth metatarsal bone. Patient was given IV fluidand was started on broad-spectrum antibiotics for diabetic [...] for infected right foot. Vascular surgery recommended nonurgentBKA or AKA due to his severe PAD. He was also seen by thepodiatry and option of hyperbaric oxygen was discussed as patient is refusing BKA. Urology input is appreciated. Patient is going to have cystoscopy with possiblestent as outpatient.Patient would like to hold off on any [...] 5,000 Unit/Ml Vial) 5,000 unit SUBCUT Q12HR [facility] Stop: 11/14/22 20:59 Last Admin: 11/20/21 12:33 [...] Units/3 Ml Insuln.Pen) 0 units SUBCUT TID.WM.HS [facility]; Protocol Stop: 11/14/22 21:59 Last Admin: 11/20/21 17:31 Dose: Not Given Insulin Detemir (Insulin Detemir 300 Units/3 Ml Insuln.Pen) 42 units SUBCUT DAILY [facility] Stop: 11/15/22 08:59 Last Admin: 11/20/21 12:36 Dose: 42 units Losartan Potassium (Losartan 50 Mg Tablet) 50 mg PO DAILY [facility] Stop: 11/18/22 08:59 Last Admin: 11/20/21 12:33 Dose: 50 mg Loteprednol Etabonate (Loteprednol 0.5% Op Susp 100 Drops/5 Ml Bottle) 1 drops EYE-LEFT QID [facility] Stop: 11/14/22 17:59 Last Admin: 11/20/21 17:31 [...] Serum creatinine is slightly worse than baseline 2.5mg/dL in the setting of cellulitis however he [...] combination of the CKD, metabolic acidosis, potassium supplementand losartan. He is back on losartan with [...] CKD and iron deficiency. His hemoglobin is lowbut stable. His serum free light chain ratio, [...] signed by MD Johan Taylor> 11/20/21 1831 [facility] Work Phone: [phone] 249-166408-16-2022 Progress note Author Landon Grullon [facility] November 20, 2021 4:01pmNote Date/TimeAugust 2021 1:41pm[place] [address] Hospitalist Progress Note Signed Patient: Simon Lott MR#: [id number] : 1950 Acct:[id number] Age/Sex: 71 / M Adm Date: 2 Loc: Room: [address] [place] [address] Type: ADM IN Attending Dr: Landon Grullon MD Copies to: ~ Date of Service: 11/20/2021 Subjective Subjective Narrative: Patient seen and assessed at bedside today. He notes no significant pain or discomfort. He is eagerly awaiting PICC line placement, as he would like to be discharged back to intermediate facility.No acute events were noted overnight. I did discuss with him regarding CT abdominal findings of narrowing of the ureter on the right side. I did report that given his COVID-19 positivity, he is at increased risk for perioperative complication. At this time, he is not interested in further inpatienttreatment of this condition. Henotes no abdominal pain, dysuria, hematuria and Sanchez catheter is inplace draining clear, yellow urine. Exam Physical Exam [...] Vial IV-PUSH 11/15/22 15:59 40 mg BID@0800,1600 UJLIANN Administration Gabapentin 600 mg 11/15/21 21:00 11/19/21 [...] Insuln.Pen SUBCUT 11/14/22 21:59 Not Given TID.WM.HS [facility] Protocol Insulin Detemir 42 units 11/15/21 09:00 [...] with Dr. Pitt we will plan on 2- weekcourse of antibiotic therapy via PICC line -Antibiotic [...] signed by Landon Grullon MD> 11/20/21 1601 [facility] Work Phone: [phone] Progress note Author Riya Pitt [facility] November 20, 2021 7:34amNote Date/TimeAugust 2021 7:34[place] [address] Infect. Disease Progress Note Signed Patient: Simon Lott MR#: [id number] : 1950 Acct:[id number] Age/Sex: 71 / M Adm Date: 2 Loc: Room: [address] [place] [address] Type: ADM IN Attending Dr: Landon Grullon [...] 100 mls @ 200 mls/hr IV Q12H [facility] Last Admin: 11/20/21 05:47 Dose: 200 mls/hr Insulin Aspart (Insulin Aspart 300 Units/3 Ml Insuln.Pen) 0 units SUBCUT TID.WM.HS [facility]; Protocol Stop: 11/14/22 21:59 Last Admin: 11/19/21 21:46 Dose: Not Given Insulin Detemir (Insulin Detemir 300 Units/3 Ml Insuln.Pen) 42 units SUBCUT DAILY [facility] Stop: 11/15/22 08:59 Last Admin: 11/19/21 08:50 Dose: 42 units Losartan Potassium (Losartan 50 Mg Tablet) 50 mg PO DAILY [facility] Stop: 11/18/22 08:59 Last Admin: 11/19/21 08:49 Dose: 50 mg Loteprednol Etabonate (Loteprednol 0.5% Op Susp 100 Drops/5 Ml Bottle) 1 drops EYE-LEFT QID [facility] Stop: 11/14/22 17:59 Last Admin: 11/19/21 21:45 Dose: 1 drops Melatonin (Melatonin 5 Mg Tablet) 5 mg PO HS PRN PRN Reason: Insomnia Stop: 11/14/22 17:41 Last Admin: 11/16/21 21:23 Dose: 5 mg Metoprolol Tartrate (Metoprolol Tartrate 5 Mg/5 Ml Vial) 5 mg IV-PUSH Q4H PRN PRN Reason: Blood Pressure Stop: 11/14/22 21:49 Nifedipine (Nifedipine Er.24hr 30 Mg Tab.Er.24) 30 mg PO DAILY [facility] Stop: 11/18/22 15:39 Last Admin: 11/19/21 08:49 Dose: 30 mg Saccharomyces Boulardii (Saccharomyces Boulardii 250 Mg Capsule) 250 mg PO BID.WITH.MEALS [facility] Stop: 11/15/22 07:59 Last Admin: 11/19/21 18:18 Dose: 250 mg Sodium Bicarbonate (Sodium Bicarbonate 650 Mg Tablet) 650 mg PO TID [facility] Stop: 11/15/22 13:59 Last Admin: 11/19/21 21:45 Dose: 650 mg Sodium Chloride (Sodium Chloride 0.9 % 10 Ml Syringe) 0 ml IV-PUSH PRN PRN PRN Reason: Flush Stop: 11/14/22 12:53 Last Admin: 11/18/21 09:06 Dose: 10 ml Sodium Chloride (Sodium Chloride 0.9 % 10 Ml Syringe) 0 ml IV-PUSH QSHIFT [facility] Stop: 11/14/22 21:59 Last Admin: 11/20/21 05:47 Dose: 10 ml Sodium Hypochlorite (Sodium Hypochlorite 0.25% 473 Ml Solution) 0 ml TOPICAL BID [facility] Stop: 11/14/22 20:59 Last Admin: 11/19/21 21:46 [...] appeared to be new. He is having goodurine output now with Sanchez catheter in place. [...] signed by MD Riya Pitt> 11/20/21 0734 [facility] Work Phone: [phone] 297-190708-16-2022 Progress note Author [facility] November 19, 2021 11:24pmNote Date/TimeAugust 2021 11:05pm[place] [address] Nephrology Progress Note Signed Patient: Simon Lott MR#: [id number] : 1950 Acct:[id number] Age/Sex: 71 / M Adm Date: 2 Loc: Room: [address] [place] [address] Type: ADM IN Attending Dr: Landon Grullon MD Copies to: ~ Date of Service: 11/19/2021 Subjective Subjective Narrative: Mr. Lott is a 71-year male with medical history of CKD, diabetes mellitus, hypertension, anemia, secondary hyperparathyroidism, alcoholic liver disease, PAD, diabetic foot ulcer, CVA, hepatitisC and nephrolithiasis. [facility]. In ER, he was found to hve hyperkalemia serum potassium 6.1 mg/L and metabolic acidosis with serum bicarbonate 17 mmol/L. Patient was also noted to have a leukocytosis and tachycardia. He had a Right foot x-ray which showed finding concerning for osteomyelitis of the fifth metatarsal bone. Patient was given IV fluidand was started on broad-spectrum antibiotics for diabetic [...] normal with diuresis and correction of acidosis. Heis currently on oral sodium bicarbonate and Lasix. Losartan 50 mg daily was added at the blood pressure still elevated despite diuresis. Creatinine is about the same 3 to 3.5 mg/dL. Potassium 3.4 mmol/L despite losartan. He was seen by the vascular surgery for infected right foot. Vascular surgery recommended nonurgentBKA or AKA due to his severe PAD. [...] 50 Mg Tablet) 100 mg PO TID.WITH.MEALS [facility] Stop: 11/15/22 07:59 Last Admin: 11/19/21 18:18 Dose: 100 mg Acetaminophen (Acetaminophen 325 Mg Tablet) 650 mg PO Q4H PRN PRN Reason: Pain Stop: 11/14/22 17:41 Last Admin: 11/15/21 18:15 Dose: 650 mg Amitriptyline HCl (Amitriptyline 10 Mg Tablet) 10 mg PO HS [facility] Stop: 11/14/22 21:59 Last Admin: 11/19/21 21:45 [...] 10 Mg Tablet) 10 mg PO HS [facility] Stop: 11/14/22 21:59 Last Admin: 11/19/21 21:45 Dose: 10 mg Clopidogrel Bisulfate (Clopidogrel Bisulfate 75 Mg Tablet) 75 mg PO DAILY JULIANN Stop: 11/15/22 08:59 Last Admin: 11/19/21 08:49 Dose: 75 mg Dextrose (Dextrose 50% In Water 25 Gm/50 Ml Syringe) 0 gm IV-PUSH PRN PRN PRN Reason: Hypoglycemia Stop: 11/14/22 17:37 Duloxetine HCl (Duloxetine 60 Mg Capsule.) 60 mg PO DAILY [facility] Stop: 11/16/22 08:59 Last Admin: 11/19/21 08:49 Dose: 60 mg Ferrous Sulfate (Ferrous Sulfate 324 Mg Tablet.) 324 mg PO MoWeFr@0900 [facility] Stop: 11/16/22 08:59 Last Admin: 11/19/21 08:50 Dose: 324 mg Folic Acid (Folic Acid 1 Mg Tablet) 1 mg PO DAILY [facility] Stop: 11/15/22 08:59 Last Admin: 11/19/21 08:50 Dose: 1 mg Furosemide (Furosemide 40 Mg/4 Ml Vial) 40 mg IV-PUSH BID@0800,1600 [facility] Stop: 11/15/22 15:59 Last Admin: 11/19/21 16:43 Dose: 40 mg Gabapentin (Gabapentin 600 Mg Tablet) 600 mg PO QPM [facility] Stop: 11/15/22 20:59 Last Admin: 11/19/21 21:45 Dose: 600 mg Glucose (Dextrose 40% Gel 15 Gm Tube) 0 gm PO PRN PRN PRN Reason: Hypoglycemia Stop: 11/14/22 17:37 Heparin Sodium (Porcine) (Heparin 5,000 Unit/Ml Vial) 5,000 unit SUBCUT Q12HR [facility] Stop: 11/14/22 20:59 Last Admin: 11/19/21 21:46 Dose: 5,000 unit Hydralazine HCl (Hydralazine 20 Mg/Ml Vial) 10 mg IV-PUSH Q4H PRN PRN Reason: Hypertension Stop: 11/14/22 21:49 Last Admin: 11/15/21 15:59 Dose: 10 mg Meropenem (Merrem) 1 gm in 100 mls @ 200 mls/hr IV Q12H [facility] Last Admin: 11/19/21 18:18 Dose: 200 mls/hr Insulin Aspart (Insulin Aspart 300 Units/3 Ml Insuln.Pen) 0 units SUBCUT TID.WM.HS [facility]; Protocol Stop: 11/14/22 21:59 Last Admin: 11/19/21 21:46 Dose: Not Given Insulin Detemir (Insulin Detemir 300 Units/3 Ml Insuln.Pen) 42 units SUBCUT DAILY [facility] Stop: 11/15/22 08:59 Last Admin: 11/19/21 08:50 Dose: 42 units Losartan Potassium (Losartan 50 Mg Tablet) 50 mg PO DAILY JULIANN Stop: 11/18/22 08:59 Last Admin: 11/19/21 08:49 Dose: 50 mg Loteprednol Etabonate (Loteprednol 0.5% Op Susp 100 Drops/5 Ml Bottle) 1 drops EYE-LEFT QID [facility] Stop: 11/14/22 17:59 Last Admin: 11/19/21 21:45 Dose: 1 drops Melatonin (Melatonin 5 Mg Tablet) 5 mg PO HS PRN PRN Reason: Insomnia Stop: 11/14/22 17:41 Last Admin: 11/16/21 21:23 Dose: 5 mg Metoprolol Tartrate (Metoprolol Tartrate 5 Mg/5 Ml Vial) 5 mg IV-PUSH Q4H PRN PRN Reason: Blood Pressure Stop: 11/14/22 21:49 Nifedipine (Nifedipine Er.24hr 30 Mg Tab.Er.24) 30 mg PO DAILY [facility] Stop: 11/18/22 15:39 Last Admin: 11/19/21 08:49 Dose: 30 mg Saccharomyces Boulardii (Saccharomyces Boulardii 250 Mg Capsule) 250 mg PO BID.WITH.MEALS [facility] Stop: 11/15/22 07:59 Last Admin: 11/19/21 18:18 Dose: 250 mg Sodium Bicarbonate (Sodium Bicarbonate 650 Mg Tablet) 650 mg PO TID [facility] Stop: 11/15/22 13:59 Last Admin: 11/19/21 21:45 Dose: 650 mg Sodium Chloride (Sodium Chloride 0.9 % 10 Ml Syringe) 0 ml IV-PUSH PRN PRN PRN Reason: Flush Stop: 11/14/22 12:53 Last Admin: 11/18/21 09:06 Dose: 10 ml Sodium Chloride (Sodium Chloride 0.9 % 10 Ml Syringe) 0 ml IV-PUSH QSHIFT [facility] Stop: 11/14/22 21:59 Last Admin: 11/19/21 21:47 [...] Fawad Nicholson M.D.11/19/2021 3:27 PM Dictation Location: [place] [address] Any impression(s) listed above is documentation that [...] Serum creatinine is slightly worse than baseline 2.5mg/dL in the setting of osteoarthritis however he [...] combination of the CKD, metabolic acidosis, potassium supplementand losartan. His potassium is back to normal [...] CKD and iron deficiency. His hemoglobin is lowbut stable. His serum free light chain ratio, [...] avoid IV iron. Will follow UPEP and urineimmunofixation that is less likely to be positive since he has normal kappa/lambda ratio. * Continue meropenem, pharmacy dose according to renal status. * Urology was consulted, patient is going to have cystoscopy and retrograde pyelogram with possiblestent placement for maximal decompression of left hy dronephrosis to see if renal function will improve. * Continue insulin and adjust the dose as needed keep the blood sugar between 100 to 150 mg/dL. * Check renal function daily and monitor input output. Documented By: Johan Taylor MD 11/19/21 5605 Signed By: <Electronically signed by MD Johan Taylor> 11/19/21 1297 [facility] Work Phone: [phone]) 879-932008-15-2022 Consult note Author Kiko Corbett [facility] November 19, 2021 8:05pmNote Date/TimeAugust 2021 7:01pm[place]ill [place] [id number] Urology Consult Note Signed Patient: Simon Lott MR#: [id number] : 1950 Acct:[id number] Age/Sex: 71 / M Adm Date: 2 Loc: Room: [address] [place] [address] Type: ADM IN Attending Dr: Landon Grullon [...] and diabetic foot ulcer currently undergoing IV abxtreatment (vanc, meropenem) for osteomyelitis who was admitted [...] admission (around his baseline since 08/2021 but notprior), CT AP was repeated showing persistent, similar [...] pen (Levemir FlexTouch U- 100 Insulin) 42 unitsubcut DAILY 05/18/21 [History Confirmed 11/14/21] losartan 25 [...] RBC 3.02 L, Hgb 8.2 L, Hct 25.8L, MCV 85.5, MCH 27.0 L, MCHC 31.6 L, RDW 18.1 H, Plt Count 227, MPV 9.5, Neut % (Auto) N/A, Lymph % (Auto) N/A, Nash % (Auto) N/A, Eos % (Auto) N/A, Baso % (Auto) N/A, Neut # (Auto) N/A, Lymph # (Auto) N/A, Nash # (Auto) N/A, Eos # (Auto) N/A, Baso # (Auto) N/A, Nucleated RBC % (auto) 0.1, Lymphocytes % 31, Monocytes % 7, Eosinophils % 4 H, Segmented Neutrophils 58, Platelet Estimate Normal, PltMorphology Comment Normal, RBC Morphology N/A, Hypochromasia Slight, [...] Sodium 138, Potassium 3.7, Chloride 108, Carbon Siyczwy99.3, BUN 41 H, Creatinine 3.29 H, Est GFR ( Amer) 23, Est GFR (Non-Af Amer) 19, Glucose 82,Calcium 7.6 L 11/18/21 05:44: Corrected WBC 15.3 H, Uncorrected WBC Count 15.3 H, RBC 2.78 L, Hgb 7.5 L, Hct 23.9L, MCV 86.0, MCH 27.2 L, MCHC 31.6 L, RDW 17.8 H, Plt Count 221, MPV 9.2, Neut % (Auto) N/A, Lymph % (Auto) N/A, Nash % (Auto) N/A, Eos % (Auto) N/A, Baso % (Auto) N/A, Neut # (Auto) N/A, Lymph # (Auto) N/A, Nash # (Auto) N/A, Eos # (Auto) N/A, Baso # (Auto) N/A, Nucleated RBC % (auto) 0.2, Lymphocytes % 25, Monocytes % 2, Eosinophils % 7 H, Segmented Neutrophils 66, Platelet Estimate Normal, PltMorphology Comment Normal, RBC Morphology N/A, Hypochromasia Moderate, [...] HYDROURETER OF UNCERTAIN ETIOLOGY.? URETERAL STRICTURE IS POSSIBLEGIVEN THE HISTORY OF URETERAL STONES AND STENT. ? SLIGHT URINARY BLADDER WALL THICKENING THOUGH THIS MAY RELATE TO? INCOMPLETE DISTENTION. ? INCREASING INGUINAL AND PELVIC ADENOPATHY, GREATER ON THE RIGHT. ? SUBCUTANEOUS EDEMA. REPEAT CT AP WO CONTRAST 11/19/21 Bilateral perinephric stranding identified.? Stone in the lower pole of the LEFTkidney is unchangedmeasuring 5 mm.? Moderate LEFT hydronephrosis redemonstrated.? Mild [...] medical history including IDDM, CVA on Plavix [id number] hx of BL ureteral stones s/p intervention [...] remains asymptomatic with good urine output via [place]chez while on diuretics. Unclear if acute on chronic renal failure secondary to left hydroureteronephrosis vs new baseline. No obstructing stone onleft, however dilation stops in proximal-mid ureter. Cannot [...] risks elevated by complex medical history including Plavix,body habitus,incidental finding of COVID although asx unsure if this may cause post- anesthesia respiratory issues. -Will have anesthesia evaluate for [...] <Electronically signed by Kiko Corbett MD> 11/19/212004 [facility] Work Phone: [phone]) 310-158508-15-2022 Progress note Author Landon Grullon [facility] November 19, 2021 3:23pmNote Date/TimeAugust 2021 3:09[place] [address] Hospitalist Progress Note Signed Patient: Simon Lott MR#: [id number] : 1950 Acct:[id number] Age/Sex: 71 / M Adm Date: 2 Loc: Room: [address] [place] [address] Type: ADM IN Attending Dr: Landon Grullon [...] 11/18/21 21:39 Gabapentin 600 Mg Tablet PO 08/11/23 20:59 600 mg QPM JULIANN Administration Glucose [...] Insuln.Pen SUBCUT 11/14/22 21:59 Not Given TID.WM.HS [facility] Protocol Insulin Detemir 42 units 11/15/21 09:00 [...] signed by Landon Grullon MD> 11/19/21 1523 [facility] Work Phone: [phone] Consult note Author Riya Pitt [facility] November 19, 2021 9:10amNote Date/TimeAugust 2021 8:57[place] [address] Infect. Disease Consult Note Signed Patient: Simon Lott MR#: [id number] : 1950 Acct:[id number] Age/Sex: 71 / M Adm Date: 2 Loc: Room: [address] [place] [address] Type: ADM IN Attending Dr: Deo Bernabe DO Copies to: DO Riya Mays MD Shawn J Warner, DO~ HPI Data of Consult Consult date: 11/19/21 Requesting Physician: Deo Bernabe DO Primary Care Provider: Maye Murray DO Consult Narrative History of present illness: Mr. Lott is a 71 year old male who was admitted back on November 14 sent over from a intermediate facility due to fever. He was found [...] showed left nephrolithiasis and left hydronephrosis and proximalhydroureter of uncertain etiology. Ureteral stricture was possible intervention. My understanding is a Snachez catheter was placed and he has been having good urine output since. Creatinine however still remains elevated. Patient remains on meropenem/vancomycin. Patient looks comfortable. He states he feels otherwise good. I was consulted for leukocytosis and the diabetic footwound. CC: Deo Bernabe DO [facility] Attestation Statement: The following information was validated [...] 100 mls @ 200 mls/hr IV Q12H [facility] Last Admin: 11/19/21 05:10 Dose: 200 mls/hr Insulin Aspart (Insulin Aspart 300 Units/3 Ml Insuln.Pen) 0 units SUBCUT TID.WM.HS [facility]; Protocol Stop: 11/14/22 21:59 Last Admin: 11/19/21 08:37 Dose: Not Given Insulin Detemir (Insulin Detemir 300 Units/3 Ml Insuln.Pen) 42 units SUBCUT DAILY [facility] Stop: 11/15/22 08:59 Last Admin: 11/19/21 08:50 Dose: 42 units Losartan Potassium (Losartan 50 Mg Tablet) 50 mg PO DAILY [facility] Stop: 11/18/22 08:59 Last Admin: 11/19/21 08:49 Dose: 50 mg Loteprednol Etabonate (Loteprednol 0.5% Op Susp 100 Drops/5 Ml Bottle) 1 drops EYE-LEFT QID [facility] Stop: 11/14/22 17:59 Last Admin: 11/19/21 08:50 Dose: 1 drops Melatonin (Melatonin 5 Mg Tablet) 5 mg PO HS PRN PRN Reason: Insomnia Stop: 11/14/22 17:41 Last Admin: 11/16/21 21:23 Dose: 5 mg Metoprolol Tartrate (Metoprolol Tartrate 5 Mg/5 Ml Vial) 5 mg IV-PUSH Q4H PRN PRN Reason: Blood Pressure Stop: 11/14/22 21:49 Nifedipine (Nifedipine Er.24hr 30 Mg Tab.Er.24) 30 mg PO DAILY [facility] Stop: 11/18/22 15:39 Last Admin: 11/19/21 08:49 Dose: 30 mg Saccharomyces Boulardii (Saccharomyces Boulardii 250 Mg Capsule) 250 mg PO BID.WITH.MEALS [facility] Stop: 11/15/22 07:59 Last Admin: 11/19/21 08:50 Dose: 250 mg Sodium Bicarbonate (Sodium Bicarbonate 650 Mg Tablet) 650 mg PO TID [facility] Stop: 11/15/22 13:59 Last Admin: 11/19/21 08:49 [...] 0.4 Mg Cap.Er.24h) 0.4 mg PO BID [facility] Stop: 11/14/22 20:59 Last Admin: 11/19/21 08:49 [...] HYDROURETER OF UNCERTAIN ETIOLOGY.? URETERAL STRICTURE IS POSSIBLEGIVEN THE HISTORY OF URETERAL STONES AND STENT. [...] appeared to be new. He is having goodurine output now with Sanchez catheter in place. [...] signed by MD Riya Pitt> 11/19/21 0910 [facility] Work Phone: [phone] 410-508108-14-2022 Progress note Author Deo Bernabe [facility] November 18, 2021 3:44pmNote Date/TimeAugust 2021 3:44[place] [address] Hospitalist Progress Note Signed Patient: Simon Lott MR#: [id number] : 1950 Acct:[id number] Age/Sex: 71 / M Adm Date: 2 Loc: Room: [address] [place] [address] Type: ADM IN Attending Dr: Deo Bernabe DO Copies to: ~ Date of Service: 11/18/2021 Subjective Subjective Narrative: Patient was seen and examined at bedside. Remained afebrile overnight. Reportsfeeling better today.No major events overnight. Patient asking when he [...] Gm Bottle TOPICAL 11/14/22 21:59 1 [facility] JULI[facility] Administration Ascorbic Acid 500 mg 11/15/21 [...] Insuln.Pen SUBCUT 11/14/22 21:59 Not Given TID.WM.HS [facility] Protocol Insulin Detemir 42 units 11/15/21 09:00 [...] Tablet PO 11/15/22 13:59 650 mg TID JLUIANN Administration Sodium Chloride 0 ml 11/14/21 12:54 [...] signed by Deo Bernabe DO> 11/18/21 1544 [facility] Work Phone: [phone] Progress note Author Olga Lidia Martin [facility] November 18, 2021 12:35pmNote Date/TimeAugust 2021 12:24[place] [address] Nephrology Progress Note Signed Patient: Simon Lott MR#: [id number] : 1950 Acct:[id number] Age/Sex: 71 / M Adm Date: 2 Loc: Room: [address] [place] [address] Type: ADM IN Attending Dr: Deo Bernabe DO Copies to: ~ Date of Service: 11/18/2021 Subjective Subjective Narrative: This is a 71-year male with medical history of CKD, diabetes mellitus, hypertension, anemia, secondary hyperparathyroidism, alcoholic liver disease, PAD, diabetic foot ulcer, CVA, hepatitis C and nephrolithiasis [facility]. On evaluation emergency [...] missed the last appointment. Nephrology is consulted forhis CKD, fluid overload, hyperkalemia and metabolic acidosis [...] for infected right foot. Vascular surgery recommended nonurgentBKA or AKA due to his severe PAD. [...] visible mass Skin: No rashes or bruises DRAMA DIRECTOR: Awake,Alert, following simple command Musculoskeletal: No joint [...] 50 Mg Tablet) 100 mg PO TID.WITH.MEALS [facility] Stop: 11/15/22 07:59 Last Admin: 11/18/21 11:35 [...] 60 Mg Capsule.) 60 mg PO DAILY [facility] Stop: 11/16/22 08:59 Last Admin: 11/18/21 09:04 Dose: 60 mg Ferrous Sulfate (Ferrous Sulfate 324 Mg Tablet.) 324 mg PO MoWeFr@0900 [facility] Stop: 11/16/22 08:59 Last Admin: 11/16/21 09:22 Dose: 324 mg Folic Acid (Folic Acid 1 Mg Tablet) 1 mg PO DAILY [facility] Stop: 11/15/22 08:59 Last Admin: 11/18/21 09:04 Dose: 1 mg Furosemide (Furosemide 40 Mg/4 Ml Vial) 40 mg IV-PUSH BID@0800,1600 [facility] Stop: 11/15/22 15:59 Last Admin: 11/18/21 09:03 Dose: 40 mg Gabapentin (Gabapentin 600 Mg Tablet) 600 mg PO QPM [facility] Stop: 11/15/22 20:59 Last Admin: 11/17/21 21:45 Dose: 600 mg Glucose (Dextrose 40% Gel 15 Gm Tube) 0 gm PO PRN PRN PRN Reason: Hypoglycemia Stop: 11/14/22 17:37 Heparin Sodium (Porcine) (Heparin 5,000 Unit/Ml Vial) 5,000 unit SUBCUT Q12HR [facility] Stop: 11/14/22 20:59 Last Admin: 11/18/21 11:04 Dose: 5,000 unit Hydralazine HCl (Hydralazine 20 Mg/Ml Vial) 10 mg IV-PUSH Q4H PRN PRN Reason: Hypertension Stop: 11/14/22 21:49 Last Admin: 11/15/21 15:59 Dose: 10 mg Meropenem (Merrem) 1 gm in 100 mls @ 200 mls/hr IV Q12H [facility] Last Admin: 11/18/21 06:08 Dose: 200 mls/hr Insulin Aspart (Insulin Aspart 300 Units/3 Ml Insuln.Pen) 0 units SUBCUT TID.WM.HS [facility]; Protocol Stop: 11/14/22 21:59 Last Admin: 11/18/21 09:03 Dose: Not Given Insulin Detemir (Insulin Detemir 300 Units/3 Ml Insuln.Pen) 42 units SUBCUT DAILY [facility] Stop: 11/15/22 08:59 Last Admin: 11/18/21 09:04 Dose: 42 units Losartan Potassium (Losartan 50 Mg Tablet) 50 mg PO DAILY [facility] Stop: 11/18/22 08:59 Last Admin: 11/18/21 09:04 Dose: 50 mg Loteprednol Etabonate (Loteprednol 0.5% Op Susp 100 Drops/5 Ml Bottle) 1 drops EYE-LEFT QID [facility] Stop: 11/14/22 17:59 Last Admin: 11/18/21 09:05 [...] 250 Mg Capsule) 250 mg PO BID.WITH.MEALS [facility] Stop: 11/15/22 07:59 Last Admin: 11/18/21 09:04 Dose: 250 mg Sodium Bicarbonate (Sodium Bicarbonate 650 Mg Tablet) 650 mg PO TID JULIANN Stop: 11/15/22 13:59 Last Admin: 11/18/21 09:05 [...] 0.4 Mg Cap.Er.24h) 0.4 mg PO BID [facility] Stop: 11/14/22 20:59 Last Admin: 11/18/21 11:04 [...] combination of the CKD, metabolic acidosis, potassium supplementand losartan. His potassium is back to normal [...] CKD and iron deficiency. His hemoglobin is lowbut stable. His serum free light chain ratio, [...] avoid IV iron. Will follow UPEP and urineimmunofixation. * Continue empiric antibiotic adjust as needed based on culture sensitivity. Pharmacy to dose medication. * Continue insulin and adjust the dose as needed keep the blood sugar between 100 to 150 mg/dL. * Check renal function daily and monitor input output. Documented By: Olga Lidia Martin MD 11/18/21 1222 Signed By: <Electronically signed by Olga Lidia Martin MD> 11/18/21 1235 [facility] Work Phone: [phone]) [phone] Progress note Author Olga Lidia Martin [facility] November 17, 2021 1:02pmNote Date/TimeAugust 2021 1:02pm[place] [address] Nephrology Progress Note Signed Patient: Simon Lott MR#: [id number] : 1950 Acct:[id number] Age/Sex: 71 / M Adm Date: 2 Loc: Room: [address] [place] [address] Type: ADM IN Attending Dr: Julian Jones MD Copies to: ~ Date of Service: 11/17/2021 Subjective Subjective Narrative: This is a 71-year male with medical history of CKD, diabetes mellitus, hypertension, anemia, secondary hyperparathyroidism, alcoholic liver disease, PAD, diabetic foot ulcer, CVA, hepatitis C and nephrolithiasis [facility]. On evaluation emergency [...] missed the last appointment. Nephrology is consulted forhis CKD, hyperkalemia and metabolic acidosis management. Interval [...] visible mass Skin: No rashes or bruises DRAMA DIRECTOR: Awake,Alert, following simple command Musculoskeletal: No joint [...] 10 Mg Tablet) 10 mg PO HS [facility] Stop: 11/14/22 21:59 Last Admin: 11/16/21 21:23 Dose: 10 mg Clopidogrel Bisulfate (Clopidogrel Bisulfate 75 Mg Tablet) 75 mg PO DAILY JULIANN Stop: 11/15/22 08:59 Last Admin: 11/17/21 09:09 Dose: 75 mg Dextrose (Dextrose 50% In Water 25 Gm/50 Ml Syringe) 0 gm IV-PUSH PRN PRN PRN Reason: Hypoglycemia Stop: 11/14/22 17:37 Duloxetine HCl (Duloxetine 60 Mg Capsule.) 60 mg PO DAILY [facility] Stop: 11/16/22 08:59 Last Admin: 11/17/21 09:08 [...] Mg/4 Ml Vial) 40 mg IV-PUSH BID@0800,1600 [facility] Stop: 11/15/22 15:59 Last Admin: 11/16/21 17:20 Dose: 40 mg Gabapentin (Gabapentin 600 Mg Tablet) 600 mg PO QPM JULIANN Stop: 11/15/22 20:59 Last Admin: 11/16/21 21:23 Dose: 600 mg Glucose (Dextrose 40% Gel 15 Gm Tube) 0 gm PO PRN PRN PRN Reason: Hypoglycemia Stop: 11/14/22 17:37 Heparin Sodium (Porcine) (Heparin 5,000 Unit/Ml Vial) 5,000 unit SUBCUT Q12HR [facility] Stop: 11/14/22 20:59 Last Admin: 11/17/21 09:10 Dose: 5,000 unit Hydralazine HCl (Hydralazine 20 Mg/Ml Vial) 10 mg IV-PUSH Q4H PRN PRN Reason: Hypertension Stop: 11/14/22 21:49 Last Admin: 11/15/21 15:59 Dose: 10 mg Meropenem (Merrem) 1 gm in 100 mls @ 200 mls/hr IV Q12H [facility] Last Admin: 11/17/21 05:43 Dose: 200 mls/hr Insulin Aspart (Insulin Aspart 300 Units/3 Ml Insuln.Pen) 0 units SUBCUT TID.WM.HS [facility]; Protocol Stop: 11/14/22 21:59 Last Admin: 11/17/21 09:09 Dose: Not Given Insulin Detemir (Insulin Detemir 300 Units/3 Ml Insuln.Pen) 42 units SUBCUT DAILY [facility] Stop: 11/15/22 08:59 Last Admin: 11/17/21 09:10 Dose: 42 units Losartan Potassium (Losartan 50 Mg Tablet) 50 mg PO DAILY [facility] Stop: 11/18/22 08:59 Loteprednol Etabonate (Loteprednol 0.5% Op Susp 100 Drops/5 Ml Bottle) 1 drops EYE-LEFT QID [facility] Stop: 11/14/22 17:59 Last Admin: 11/17/21 09:10 [...] by Olga Lidia Martin MD> 11/17/21 1302 [facility] Work Phone: [phone] Progress note Author Julian Jones [facility] November 17, 2021 12:46pmNote Date/TimeAugust 2021 12:46[place] [address] Hospitalist Progress Note Signed Patient: Simon Lott MR#: [id number] : 1950 Acct:[id number] Age/Sex: 71 / M Adm Date: 2 Loc: 4P Room: [address] [place] [address] Type: ADM IN Attending Dr: Julian Jones MD Copies to: ~ Date of Service: 11/17/2021 Subjective Subjective Narrative: Patient was seen and examined at bedside. Remained afebrile overnight. Reportsfeeling better today.No major events overnight. Exam Physical Exam Vital [...] 11/16/21 09:00 11/17/21 09:08 Duloxetine 60 Mg Capsule. PO 11/16/22 08:59 [...] Insuln.Pen SUBCUT 11/14/22 21:59 Not Given TID.WM.HS [facility] Protocol Insulin Detemir 42 units 11/15/21 09:00 [...] signed by Julian Jones MD> 11/17/21 1246 [facility] Work Phone: [phone]) [phone] Progress note Author Olga Lidia Martin [facility] November 16, 2021 3:24pmNote Date/TimeAugust 2021 12:33pm[address] [address] Nephrology Progress Note Signed Patient: Simon Lott MR#: [id number] : 1950 Acct:[id number] Age/Sex: 71 / M Adm Date: 2 Loc: Room: [address] [place] [address] Type: ADM IN Attending Dr: Deo Bernabe DO Copies to: ~ Date of Service: 11/16/2021 Subjective Subjective Narrative: This is a 71-year male with medical history of CKD, diabetes mellitus, hypertension, anemia, secondary hyperparathyroidism, alcoholic liver disease, PAD, diabetic foot ulcer, CVA, hepatitis C and nephrolithiasis [facility]. On evaluation emergency [...] missed the last appointment. Nephrology is consulted forhis CKD, hyperkalemia and metabolic acidosis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 October 15, 2020 11:00pmNote Date/TimeMarch 2020 3:49pmB[facility] [place] [address] Hem/Onc Follow Up Note - OP Signed with Addenda Patient: Simon Lott MR#: [id number] : 1950 Acct:[id number] Age/Sex: 70 / M Type: REG RCR [...] HPI: This is a very nice 69-year-old -Citizen Of [place] gentleman who presents with mild anemia and [...] train on a bicycle. This happened on [facility]. Hedenies any weight loss, significant or new pain or other acute complaints. 06/26/20 he has renal stent operation upcoming and to get stones out. He continues to have issues with ulceration of his R foot laterally. His edema is improved. [facility] - Medical History Medical History: Medical History [...] for coordination of care (as documented) and ifwl-zv-zuws counseling of patient and/or family. Attestation Statement - Physician Attestation labs today. cbc q3wks start aranesp soon and every 3wks if hb less than 10. f/u with me in 3 months. Dictated By: Jose M Landry II, DO DD/ 1547 Signed By: <Electronically signed by Jose M Landry II, DO> 06/26/20 2141 [facility] Work Phone: 1([phone]) 406-695110-21-2020 Consult note Author Pito Delonteammon [facility] January 26, 2020 10:22amNote Date/TimeOct2019 10:16[facility] [place] [address] Hem/Onc Consult Note - OP Signed Patient: Simon Lott MR#: [id number] : 1950 Acct:[id number] Age/Sex: 69 / M Type: REG RCR Copies to: ELÍAS Quigley~ HPI Date/Time of Service: Date of Service: 01/26/2020 Time of Service: 10:15 Referring Provider/PCP: Referring Provider: ELÍAS Quigley PCP: ELÍAS Quigley - History of Present Illness Reason for Consultation: Anemia Chief Complaint: New patient appt HPI: This is a very nice 69-year-old -Citizen Of [place] gentleman who presents with mild anemia and [...] train on a bicycle. This happened on [facility]. Hedenies any weight loss, significant or new pain or other acute complaints. [facility] - Medical History Medical History: Medical History [...] 01/25/20] insulin detemir U-100 See Protocol SUBCUT [facility] WITH [facility] 12/25/16 [History Confirmed 01/25/20] multivitamin 1 tab [...] Exam Narrative: The patient is a 69-year-old -Citizen Of [place] gentleman. He is on a scooter. He [...] for coordination of care (as documented) and nhae-xv-jmay counseling of patient and/or family. Dictated By: Pito Miguel MD DD/ 1015 Signed By: <Electronically signed by MD Pito Miguel> 01/26/20 1022 [facility] Work Phone: 1(630) 930-514704-07-2016 History of Past illness Narrative* Problem Noted DateResolved DateAPPOINTMENT [id number] as of this encounter (statuses as of 04/23/2022) [place] [address]-07-2016 History of Past illness Narrative* ProblemNoted Date Resolved DateAPPOINTMENT [id number] as of this encounter (statuses as of 05/03/2022) [address]07-2016 History of Past illness Narrative* ProblemNoted Date Resolved DateAPPOINTMENT [id number] as of this encounter (statuses as of 05/08/2022) [place] [address]-07-2016 History of Past illness Narrative* ProblemNoted Date Resolved DateAPPOINTMENT [id number] as of this encounter (statuses as of 05/22/2022) [address]07-2016 History of Past illness Narrative* ProblemNoted Date Resolved DateAPPOINTMENT [id number] as of this encounter (statuses as of 07/17/2022) [address]07-2016 History of Past illness Narrative* ProblemNoted Date Resolved DateAPPOINTMENT [id number] as of this encounter (statuses as of 07/25/2022) [facility]04-07-2016 History of Past illness Narrative* ProblemNoted Date Resolved DateAPPOINTMENT [id number] as of this encounter (statuses as of 09/23/2022) [facility] complaint Narrative - ReportedSIMON LOTT is being seen for a cardiovascular evaluation of pre-operative clearance.-[facility] 250 DO Work Phone: [place] complaint Narrative - ReportedSIMON LOTT is being seen for a cardiovascular evaluation of pre-operative clearance.[facility] 250 DO Work Phone: [place] complaint Narrative - ReportedSIMON LOTT is being seen for a cardiovascular evaluation of pre-operative clearance.[facility] Work Phone: Consult note Author Master Mauricio [facility] November 15, 2021 3:14pmNote Date/TimeAugust 2021 9:02[place] [address] Vascular Surgery Consult Note Signed Patient: Simon Lott MR#: [id number] : 1950 Acct:[id number] Age/Sex: 71 / M Adm Date: 2 Loc: Room: [address] [place] [address] Type: ADM IN Attending Dr: Deo Bernabe DO Copies to: DO Jailene Mays APRN Matthew T Langenberg, MD Shawn J Warner, DO~ HPI Consult HPI History of present illness: Mr. Lott is a 71-year-old -Citizen Of [place] male with past medical history to include insulin-dependent diabetes, CKD, A. fib on Plavix, hypertension, known peripheral vascular disease, and hepatitis C presenting through the emergency department yesterday with complaints of fever, body aches, and chills. This patient resides at [facility]. Mr. Lott is a well-knownpatient to our office. He has struggled to heal the chronic ulceration on the right foot for coupleof years now. He tells me that he [...] of right foot wounds. cc:: CC: Deo Bernabe DO Data of Consult Consult date: 11/15/2021 Requesting Physician: Deo Bernabe DO Review of Systems Review of Systems [...] 04:00 11/15/21 04:00 11/15/21 04:00 Narrative: 71-year-old -Citizen Of [place] male, no acute distress. He is resting [...] % (Auto) 97.0 Lymph % (Auto) 3.0 Nash % (Auto) 4.0 Eos % (Auto) N/A Baso % (Auto) N/A Neut # (Auto) N/A Lymph # (Auto) N/A Nash # (Auto) N/A Eos # (Auto) N/A [...] Color Urine Appearance Urine pH Ur Specific [place] Urine Protein Urine Glucose (UA) Urine Ketones [...] MPV Neut % (Auto) Lymph % (Auto) Nash % (Auto) Eos % (Auto) Baso % (Auto) Neut # (Auto) Lymph # (Auto) Nash # (Auto) Eos # (Auto) Baso # [...] Color Urine Appearance Urine pH Ur Specific [place] Urine Protein Urine Glucose (UA) Urine Ketones [...] MPV Neut % (Auto) Lymph % (Auto) Nash % (Auto) Eos % (Auto) Baso % (Auto) Neut # (Auto) Lymph # (Auto) Nash # (Auto) Eos # (Auto) Baso # [...] Appearance Clear Urine pH 6.0 Ur Specific [place] 1.017 Urine Protein >=1000 H Urine Glucose [...] % (Auto) N/A Lymph % (Auto) N/A Nash % (Auto) N/A Eos % (Auto) N/A Baso % (Auto) N/A Neut # (Auto) N/A Lymph # (Auto) N/A Nash # (Auto) N/A Eos # (Auto) N/A [...] Color Urine Appearance Urine pH Ur Specific [place] Urine Protein Urine Glucose (UA) Urine Ketones [...] MPV Neut % (Auto) Lymph % (Auto) Nash % (Auto) Eos % (Auto) Baso % (Auto) Neut # (Auto) Lymph # (Auto) Nash # (Auto) Eos # (Auto) Baso # [...] Color Urine Appearance Urine pH Ur Specific [place] Urine Protein Urine Glucose (UA) Urine Ketones [...] kidney disease stage: unspecified stage 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 He did have previous GILDA testing in [...] source control. He may require BKA or AKAin the future however this is not needed on an urgent basis at this time. Furthermore, the patient adamantly refuses any amputation whatsoever. Code(s): I73.9 - Peripheral vascular disease, unspecified Status: Acute Documented By: Jailene Castorena APRN 11/15/21 0 858 Signed By: <Electronically signed by TYSON Castorena> 11/15/21 0912 <Electronically signed by Master Mauricio MD> 11/15/21 3262 [facility] Work Phone: Consult note Author Olga Lidia Martin [facility] November 15, 2021 3:20pmNote Date/TimeAugust 2021 11:51[place] [address] Nephrology Consult Note Signed Patient: Simon Lott MR#: [id number] : 1950 Acct:[id number] Age/Sex: 71 / M Adm Date: 2 Loc: Room: [address] [place] [address] Type: ADM IN Attending Dr: Deo Bernabe [...] C and nephrolithiasis was transferred from the [facility] due to the fever. On evaluation emergency [...] missed the last appointment. Nephrology is consulted forhis CKD, hyperkalemia and metabolic acidosis management. Patient was seen examined bedside reportedthat he had a COVID. Hedenies any shortness [...] pen (Levemir FlexTouch U- 100 Insulin) 42 unitsubcut DAILY 05/18/21 [History Confirmed 11/14/21] losartan 25 [...] 10 Mg Tablet) 10 mg PO HS [facility] Stop: 11/14/22 21:59 Last Admin: 11/14/21 22:22 Dose: 10 mg Clopidogrel Bisulfate (Clopidogrel Bisulfate 75 Mg Tablet) 75 mg PO DAILY JULIANN Stop: 11/15/22 08:59 Last Admin: 11/15/21 10:27 Dose: 75 mg Dextrose (Dextrose 50% In Water 25 Gm/50 Ml Syringe) 0 gm IV-PUSH PRN PRN PRN Reason: Hypoglycemia Stop: 11/14/22 17:37 Duloxetine HCl (Duloxetine 60 Mg Capsule.) 60 mg PO DAILY [facility] Stop: 11/16/22 08:59 Ferrous Sulfate (Ferrous Sulfate [...] Ml) 1,000 mls @ 100 mls/hr IV .[id number] Stop: 11/14/22 17:59 Last Admin: 11/15/21 05:16 Dose: 100 mls/hr Meropenem (Merrem) 1 gm in 100 mls @ 200 mls/hr IV Q12H JULIANN Last Admin: 11/15/21 05:15 Dose: 200 mls/hr Insulin Aspart (Insulin Aspart 300 Units/3 Ml Insuln.Pen) 0 units SUBCUT TID.WM.HS [facility]; Protocol Stop: 11/14/22 21:59 Last Admin: 11/15/21 08:56 Dose: Not Given Insulin Detemir (Insulin Detemir 300 Units/3 Ml Insuln.Pen) 42 units SUBCUT DAILY [facility] Stop: 11/15/22 08:59 Last Admin: 11/15/21 10:30 [...] 473 Ml Solution) 0 ml TOPICAL BID [facility] Stop: 11/14/22 20:59 Last Admin: 11/15/21 10:43 Dose: Not Given Tamsulosin HCl (Tamsulosin 0.4 Mg Cap.Er.24h) 0.4 mg PO BID [facility] Stop: 11/14/22 20:59 Last Admin: 11/15/21 10:27 [...] visible mass Skin: No rashes or bruises DRAMA DIRECTOR: Awake,Alert, following simple command Musculoskeletal: No joint swelling or limitation of movement Psychiatric: Cooperative, normal mood and affect Results Labs CBC & Chem 7: 11/15/21 05:44 11/15/21 05:44 Labs: 11/14/21 11/14/21 11/14/21 13:00 14:36 17:57 BUN 34 H 34 H Creatinine 3.43 H 3.51 H Albumin 2.4 L 25-OH Vitamin D Total Urine Color Yellow Urine Appearance Clear Urine pH 6.0 Ur Specific [place] 1.017 Urine Protein >=1000 H Urine Glucose (UA) Normal Urine Ketones Negative Urine Occult Blood Negative Urine Nitrite Negative Ur Leukocyte Esterase Negative Urine RBC 3-4 Urine WBC 1-2 Urine Bacteria None seen 11/15/21 05:44 BUN 34 H Creatinine 3.28 H Albumin 25-OH Vitamin D Total 12.2 L Urine Color Urine Appearance Urine pH Ur Specific [place] Urine Protein Urine Glucose (UA) Urine Ketones Urine Occult Blood Urine Nitrite Ur Leukocyte Esterase Urine RBC Urine WBC Urine Bacteria Radiology Impressions Impressions - last 24 hours: Impressions Chest X-Ray 11/14/21 13:05 IMPRESSION: NO ACUTE FINDINGS. RIGHT FOOT - 3 views COMPARISON: 05/18/2021 and MRI report 09/13/2021 AP, lateral and oblique views were obtained. There is osteopenia. There is oldfracture deformity atthe shaft of the second metatarsal. There is [...] Alla Phan M.D.11/14/2021 2:13 PM Dictation Location: [place] [address] Any impression(s) listed above is documentation that [...] oral sodium bicarbonate 650 mg mg p.o. 3times daily * Continue empiric antibiotic adjust as [...] signed by Olga Lidia Martin MD> 11/15/21 1520 [facility] Work Phone: Consult note Author Bhakti Ochoa [facility] November 15, 2021 5:10pmNote Date/TimeAugust 2021 5:10[place] [address] Podiatry Consult Note Signed Patient: Simon Lott MR#: [id number] : 1950 Acct:[id number] Age/Sex: 71 / M Adm Date: 2 Loc: Room: 0V9255-5 Type: ADM IN Attending Dr: Deo Bernabe [...] pen (Levemir FlexTouch U- 100 Insulin) 42 unitsubcut DAILY 05/18/21 [History Confirmed 11/14/21] losartan 25 [...] ulceration lateral distal foot sub metatarsal heads appro ximately 4 and 5 and extends to the midfoot measuring approximately 7 cm x 8 cm width and base thathas depth measuring from approximately 3 mm to [...] wounds will heal. [facility] for hyperbaric oxygen therapy. If he meets the criteria this could be an alternative treatmentoption however emphasizing to the patient that there are no guarantees that thiswill improve the status of the wounds. Documented By: Bhakti Ochoa DPM 11/15/21 5513 Signed By: <Electronically signed by ELBA Ochoa> 11/15/21 5959 [facility] Work Phone: Consult note Author Riya Pitt [facility] November 19, 2021 9:10amNote Date/TimeAugust 2021 8:[address] [address] Infect. Disease Consult Note Signed Patient: Simon Lott MR#: [id number] : 1950 Acct:[id number] Age/Sex: 71 / M Adm Date: 2 Loc: Room: 7D2940-0 Type: ADM IN Attending Dr: Deo Bernabe DO Copies to: DO Riya Mays MD Shawn J Warner, DO~ HPI Data of Consult Consult date: 11/19/21 Requesting Physician: Deo Benrabe DO Primary Care Provider: Maye Murray DO Consult Narrative History of present illness: Mr. Lott is a 71 year old male who was admitted back on November 14 sent over from a intermediate facility due to fever. He was found [...] showed left nephrolithiasis and left hydronephrosis and proximalhydroureter of uncertain etiology. Ureteral stricture was possible intervention. My understanding is a Sanchez catheter was placed and he has been having good urine output since. Creatinine however still remains elevated. Patient remains on meropenem/vancomycin. Patient looks comfortable. He states he feels otherwise good. I was consulted for leukocytosis and the diabetic footwound. CC: Deo Bernabe DO [facility] Attestation Statement: The following information was validated [...] 75 Mg Tablet) 75 mg PO DAILY [facility] Stop: 11/15/22 08:59 Last Admin: 11/19/21 08:49 Dose: 75 mg Dextrose (Dextrose 50% In Water 25 Gm/50 Ml Syringe) 0 gm IV-PUSH PRN PRN PRN Reason: Hypoglycemia Stop: 11/14/22 17:37 Duloxetine HCl (Duloxetine 60 Mg Capsule.) 60 mg PO DAILY JULIANN Stop: 11/16/22 08:59 Last Admin: 11/19/21 08:49 Dose: 60 mg Ferrous Sulfate (Ferrous Sulfate 324 Mg Tablet.) 324 mg PO MoWeFr@0900 [facility] Stop: 11/16/22 08:59 Last Admin: 11/19/21 08:50 Dose: 324 mg Folic Acid (Folic Acid 1 Mg Tablet) 1 mg PO DAILY [facility] Stop: 11/15/22 08:59 Last Admin: 11/19/21 08:50 Dose: 1 mg Furosemide (Furosemide 40 Mg/4 Ml Vial) 40 mg IV-PUSH BID@0800,1600 [facility] Stop: 11/15/22 15:59 Last Admin: 11/19/21 08:49 Dose: 40 mg Gabapentin (Gabapentin 600 Mg Tablet) 600 mg PO QPM [facility] Stop: 11/15/22 20:59 Last Admin: 11/18/21 21:39 Dose: 600 mg Glucose (Dextrose 40% Gel 15 Gm Tube) 0 gm PO PRN PRN PRN Reason: Hypoglycemia Stop: 11/14/22 17:37 Heparin Sodium (Porcine) (Heparin 5,000 Unit/Ml Vial) 5,000 unit SUBCUT Q12HR [facility] Stop: 11/14/22 20:59 Last Admin: 11/19/21 08:49 Dose: 5,000 unit Hydralazine HCl (Hydralazine 20 Mg/Ml Vial) 10 mg IV-PUSH Q4H PRN PRN Reason: Hypertension Stop: 11/14/22 21:49 Last Admin: 11/15/21 15:59 Dose: 10 mg Meropenem (Merrem) 1 gm in 100 mls @ 200 mls/hr IV Q12H [facility] Last Admin: 11/19/21 05:10 Dose: 200 mls/hr Insulin Aspart (Insulin Aspart 300 Units/3 Ml Insuln.Pen) 0 units SUBCUT TID.WM.HS [facility]; Protocol Stop: 11/14/22 21:59 Last Admin: 11/19/21 08:37 Dose: Not Given Insulin Detemir (Insulin Detemir 300 Units/3 Ml Insuln.Pen) 42 units SUBCUT DAILY JULIANN Stop: 11/15/22 08:59 Last Admin: 11/19/21 08:50 Dose: 42 units Losartan Potassium (Losartan 50 Mg Tablet) 50 mg PO DAILY JULIANN Stop: 11/18/22 08:59 Last Admin: 11/19/21 08:49 Dose: 50 mg Loteprednol Etabonate (Loteprednol 0.5% Op Susp 100 Drops/5 Ml Bottle) 1 drops EYE-LEFT QID [facility] Stop: 11/14/22 17:59 Last Admin: 11/19/21 08:50 Dose: 1 drops Melatonin (Melatonin 5 Mg Tablet) 5 mg PO HS PRN PRN Reason: Insomnia Stop: 11/14/22 17:41 Last Admin: 11/16/21 21:23 Dose: 5 mg Metoprolol Tartrate (Metoprolol Tartrate 5 Mg/5 Ml Vial) 5 mg IV-PUSH Q4H PRN PRN Reason: Blood Pressure Stop: 11/14/22 21:49 Nifedipine (Nifedipine Er.24hr 30 Mg Tab.Er.24) 30 mg PO DAILY [facility] Stop: 11/18/22 15:39 Last Admin: 11/19/21 08:49 Dose: 30 mg Saccharomyces Boulardii (Saccharomyces Boulardii 250 Mg Capsule) 250 mg PO BID.WITH.MEALS [facility] Stop: 11/15/22 07:59 Last Admin: 11/19/21 08:50 [...] 10 Ml Syringe) 0 ml IV-PUSH QSHIFT [facility] Stop: 11/14/22 21:59 Last Admin: 11/19/21 06:53 Dose: 10 ml Sodium Hypochlorite (Sodium Hypochlorite 0.25% 473 Ml Solution) 0 ml TOPICAL BID [facility] Stop: 11/14/22 20:59 Last Admin: 11/19/21 08:38 Dose: Not Given Tamsulosin HCl (Tamsulosin 0.4 Mg Cap.Er.24h) 0.4 mg PO BID [facility] Stop: 11/14/22 20:59 Last Admin: 11/19/21 08:49 [...] HYDROURETER OF UNCERTAIN ETIOLOGY.? URETERAL STRICTURE IS POSSIBLEGIVEN THE HISTORY OF URETERAL STONES AND STENT. [...] appeared to be new. He is having goodurine output now with Sanchez catheter in place. Favor CT scan abdomen pelvis to reevaluate this abnormality. If persistent hydroureter exists then will consider urology consult. In the meantime continue vancomycin and meropenem. Of note patient's COVID test did come back positive but he has no respiratory symptoms. Documented By: Riya Pitt MD 11/19/21 9224 Signed By: <Electronically signed by MD Riya Pitt> 11/19/21 2337 [facility] Work Phone: Consult note Author Kiko Lue [facility] November 19, 2021 8:05pmNote Date/TimeAugust 2021 7:01[place] [address] Urology Consult Note Signed Patient: Simon Lott MR#: [id number] : 1950 Acct:[id number] Age/Sex: 71 / M Adm Date: 2 Loc: Room: [address] [place] [address] Type: ADM IN Attending Dr: Landon Grullon [...] and diabetic foot ulcer currently undergoing IV abxtreatment (vanc, meropenem) for osteomyelitis who was admitted [...] admission (around his baseline since 08/2021 but notprior), CT AP was repeated showing persistent, similar [...] pen (Levemir FlexTouch U- 100 Insulin) 42 unitsubcut DAILY 05/18/21 [History Confirmed 11/14/21] losartan 25 [...] RBC 3.02 L, Hgb 8.2 L, Hct 25.8L, MCV 85.5, MCH 27.0 L, MCHC 31.6 L, RDW 18.1 H, Plt Count 227, MPV 9.5, Neut % (Auto) N/A, Lymph % (Auto) N/A, Nash % (Auto) N/A, Eos % (Auto) N/A, Baso % (Auto) N/A, Neut # (Auto) N/A, Lymph # (Auto) N/A, Nash # (Auto) N/A, Eos # (Auto) N/A, Baso # (Auto) N/A, Nucleated RBC % (auto) 0.1, Lymphocytes % 31, Monocytes % 7, Eosinophils % 4 H, Segmented Neutrophils 58, Platelet Estimate Normal, PltMorphology Comment Normal, RBC Morphology N/A, Hypochromasia Slight, [...] Sodium 138, Potassium 3.7, Chloride 108, Carbon Guyehul65.3, BUN 41 H, Creatinine 3.29 H, Est GFR ( Amer) 23, Est GFR (Non-Af Amer) 19, Glucose 82,Calcium 7.6 L 11/18/21 05:44: Corrected WBC 15.3 H, Uncorrected WBC Count 15.3 H, RBC 2.78 L, Hgb 7.5 L, Hct 23.9L, MCV 86.0, MCH 27.2 L, MCHC 31.6 L, RDW 17.8 H, Plt Count 221, MPV 9.2, Neut % (Auto) N/A, Lymph % (Auto) N/A, Nash % (Auto) N/A, Eos % (Auto) N/A, Baso % (Auto) N/A, Neut # (Auto) N/A, Lymph # (Auto) N/A, Nash # (Auto) N/A, Eos # (Auto) N/A, Baso # (Auto) N/A, Nucleated RBC % (auto) 0.2, Lymphocytes % 25, Monocytes % 2, Eosinophils % 7 H, Segmented Neutrophils 66, Platelet Estimate Normal, PltMorphology Comment Normal, RBC Morphology N/A, Hypochromasia Moderate, [...] HYDROURETER OF UNCERTAIN ETIOLOGY.? URETERAL STRICTURE IS POSSIBLEGIVEN THE HISTORY OF URETERAL STONES AND STENT. ? SLIGHT URINARY BLADDER WALL THICKENING THOUGH THIS MAY RELATE TO? INCOMPLETE DISTENTION. ? INCREASING INGUINAL AND PELVIC ADENOPATHY, GREATER ON THE RIGHT. ? SUBCUTANEOUS EDEMA. REPEAT CT AP WO CONTRAST 11/19/21 Bilateral perinephric stranding identified.? Stone in the lower pole of the LEFTkidney is unchangedmeasuring 5 mm.? Moderate LEFT hydronephrosis redemonstrated.? Mild [...] medical history including IDDM, CVA on Plavix [id number] hx of BL ureteral stones s/p intervention [...] hydroureteronephrosis vs new baseline. No obstructing stone onleft, however dilation stops in proximal-mid ureter. Cannot [...] risks elevated by complex medical history including Plavix,body habitus,incidental finding of COVID although asx unsure if this may cause post- anesthesia respiratory issues. -Will have anesthesia evaluate for [...] <Electronically signed by Kiko Corbett MD> 11/19/212004 [facility] Work Phone: Consult note Author Bhakti Ochoa [facility] September 10, 2022 5:56pmNote Date/TimeJune 2022 5:56[place] [address] Podiatry Consult Note Signed Patient: Simon Lott MR#: [id number] : 1950 Acct:[id number] Age/Sex: 72 / M Adm Date: 3 Loc: 4N Room: [address] [place] [address] Type: ADM IN Attending Dr: Kevin Steinberg [...] NONE X 7 MONTHS Social History Comments: [facility] Med[facility] Medications and Allergies Allergies codeine Allergy [...] pen (Levemir FlexTouch U- 100 Insulin) 40 unitsubcut DAILY 05/18/21 [History Confirmed 09/10/22] melatonin 5 [...] <Electronically signed by ELBA Ochoa> 09/10/22 1756 [facility] Work Phone: Consult note Author Riya Pitt [facility] September 11, 2022 9:39amNote Date/TimeJun2022 8:38[place] [address] Infect. Disease Consult Note Signed with Fabiola Patient: Simon Lott MR#: [id number] : 1950 Acct:[id number] Age/Sex: 72 / M Adm Date: 3 Loc: 4N Room: [address] [place] [address] Type: ADM IN Attending Dr: Kevin Steinberg MD Copies to: MD Mervat Whipple, PRINT LINE INSPECTOR-C Riya Pitt MD~ ADDENDUM2 Further information revealed [...] outpatient had documented August 29 and their consultnote thatbelow the knee amputation was what they had recommended and discussed with him previously. Dr. Rocha told me this morning that patient does have pulses but due to his uncontrolled diabeteshe is just not healing. Patient has been noncompliant with medical care. Addendum Documented By: MD Riya Pitt 09/11/22 0850 Addendum Signed By: <Electronically signed by MD Riya Pitt> 09/11/22 0850 HPI Data of Consult Consult date: 09/11/22 Requesting Physician: Kevin Steinberg MD Primary Care Provider: Mervat Santiago PRINT LINE INSPECTOR-C Consult Narrative History of present illness: Mr. Lott is a 72 year old male who has been in the hospital and evaluated multiple times for his nonhealing right foot wound. He was just here at the [facility] and left AGAINST MEDICAL ADVICE. He has been told that the right foot essentially cannot be salvaged and amputation would be the nextstep. He has had previous positive blood cultures which prompted the reason I am consulted. On consulted again for osteomyelitis for which without blood supply antibiotics would not be effective. CC: Kevin Steinberg MD Review of Systems Review of Systems All other systems reviewed & are negative unless noted below or in HPI [facility] Attestation Statement: The following information was validated [...] NONE X 7 MONTHS [facility] Allergies and Medications Allergies [...] (Atorvastatin 10 Mg Tablet) 10 mg PO [facility] Stop: 09/10/23 21:59 Last Admin: 09/10/22 [...] Units/3 Ml Insuln.Pen) 0 units SUBCUT TID.WM.HS [facility]; Protocol Stop: 09/10/23 16:59 Last Admin: 09/11/22 08:05 Dose: Not Given Insulin Glargine (Insulin Glargine 300 Units/3 Ml Insuln.Pen) 40 units SUBCUT DAILY [facility] Stop: 09/11/23 08:59 Last Admin: 09/11/22 08:07 [...] each IV ONCE PRN; Protocol PRN Reason: NORMA.Pharmacy Consult Exam Physical Exam Vital Signs: Temp [...] of this right foot. Patient presented with aslightly elevated whitecount which she had before and no fever. The wound looks the same to me as Idid the last time he was here. I am not sure what the concern was that was new that he came back to the hospital as I read that his home health nurse told him he needed to. From my standpoint empiricvancomycin meropenem can continue given the concern of systemic infection from this right foot however antibioticsare not going to get delivered to this right foot necrotic heel wound due to thefact blood supply is lacking. Documented By: Riya Pitt MD 09/11/22 0833 Signed By: <Electronically signed by MD Riya Pitt> 09/11/22 0838 [facility] Work Phone: Consult note Author Fawad Rocha [facility] September 11, 2022 9:29amNote Date/TimeJune 2022 9:24[place] [address] Vascular Surgery Consult Note Signed Patient: Simon Lott MR#: [id number] : 1950 Acct:[id number] Age/Sex: 72 / M Adm Date: 3 Loc: Room: [address] [place] [address] Type: ADM IN Attending Dr: Kevin Steinberg MD Copies to: MD Fawad Whipple MD Laura E Spasic, PRINT LINE INSPECTOR-C~ HPI Consult HPI Reason for consult: Nonhealing [...] date: 09/11/2022 Requesting Physician: Kevin Steinberg MD [facility] Vaccinated for COVID-19?: Yes Medical History Alcohol [...] NONE X 7 MONTHS [facility] [place] Allergies & Active Medications Medications and Allergies [...] % (Auto) 45.4 Lymph % (Auto) 42.1 Nash % (Auto) 8.6 Eos % (Auto) 3.5 Baso % (Auto) 0.4 Nucleat RBC Rel Count 0.1 Neut # (Auto) 5.5 Lymph # (Auto) 5.1 H Nash # (Auto) 1.0 H Eos # (Auto) [...] Color Urine Appearance Urine pH Ur Specific [place] Urine Protein Urine Glucose (UA) Urine Ketones Urine Occult Blood Urine Nitrite Urine Bilirubin Urine Urobilinogen Ur Leukocyte Esterase Urine RBC Urine WBC Ur Squamous Epith Cells Urine Bacteria Hyaline Casts 09/10/22 09/10/22 09/10/22 11:50 11:50 11:50 Corrected WBC Uncorrected WBC Count RBC Hgb Hct MCV MCH MCHC RDW Plt Count MPV Neut % (Auto) Lymph % (Auto) Nash % (Auto) Eos % (Auto) Baso % (Auto) Nucleat RBC Rel Count Neut # (Auto) Lymph # (Auto) Nash # (Auto) Eos # (Auto) Baso # (Auto) Monocyte Dist Width ESR 122 H PT INR APTT PHA Creatinine Clear Sodium Potassium Chloride Carbon Dioxide Anion Gap BUN Creatinine Est GFR (CKD-EPI) Glucose POC Glucose Lactic Acid 1.3 Calcium Phosphorus Total Bilirubin C-Reactive Prot, Quant 0.8 H Albumin Urine Color Urine Appearance Urine pH Ur Specific [place] Urine Protein Urine Glucose (UA) Urine Ketones [...] % (Auto) 49.4 Lymph % (Auto) 37.7 Nash % (Auto) 8.6 Eos % (Auto) 3.9 Baso % (Auto) 0.4 Nucleat RBC Rel Count 0.1 Neut # (Auto) 5.4 Lymph # (Auto) 4.1 Nash # (Auto) 0.9 H Eos # (Auto) 0.4 Baso # (Auto) 0.0 Monocyte Dist Width ESR PT INR APTT PHA Creatinine Clear Sodium Potassium Chloride Carbon Dioxide Anion Gap BUN Creatinine Est GFR (CKD-EPI) Glucose POC Glucose 184 Lactic Acid Calcium Phosphorus Total Bilirubin C-Reactive Prot, Quant Albumin Urine Color Yellow Urine Appearance Clear Urine pH 6.0 Ur Specific [place] 1.012 Urine Protein 300 H Urine Glucose [...] MPV Neut % (Auto) Lymph % (Auto) Nash % (Auto) Eos % (Auto) Baso % (Auto) Nucleat RBC Rel Count Neut # (Auto) Lymph # (Auto) Nash # (Auto) Eos # (Auto) Baso # [...] Color Urine Appearance Urine pH Ur Specific [place] Urine Protein Urine Glucose (UA) Urine Ketones [...] signed by MD Fawad Rocha> 09/11/22 0929 [facility] Work Phone: Consult note [facility] September 11, 2022 2:01pmNote Date/TimeJune 2022 2:01[place] [address] Nephrology Consult Note Signed Patient: Simon Lott MR#: [id number] : 1950 Acct:[id number] Age/Sex: 72 / M Adm Date: 3 Loc: 4N Room: [address] [place] [address] Type: ADM IN Attending Dr: Kevin Steinberg MD Copies to: MD Johan Whipple MD Laura E Spasic, NP-C~ Providers Consult Date: 09/11/22 Requesting Provider: Kevin Steinberg MD Primary Care Provider: ELÍAS Quigley [facility] Reason for Consult: Management of advanced CKD during hospital stay History of Present Illness: Mr. Lott is a 72-year-old -Citizen Of [place] male well-known to me, he used to follow-up in my office for progressive CKD related to DM2 and obstructive uropathy related to bilateral nephrolithiasis s/p nephrostomy tubes that was removed later on. Serum creatinine has progressed over the last couple of yearsfrom 2.5 up to 4.5 mg/dL. Patient has been noncompliant and he was last seen ongus2021. Other significant medical problems as PAD with diabetic foot ulcerfor which he follow-up with podiatry as outpatient. Patient presented to [...] his creatinine has been around 4.5 to 4 .7 mg/dL. Repeat kidney ultrasound showed persistent left [...] medication showed that the patient on potassium s upplement 20 mill equivalent daily, furosemide, sodium bicarb [...] NONE X 7 MONTHS Social History Comments: [facility] Meds Medications & Allergies Allergies codeine Allergy [...] pen (Levemir FlexTouch U- 100 Insulin) 40 unitsubcut DAILY 05/18/21 [History Confirmed 09/10/22] melatonin 5 [...] 100 mls @ 200 mls/hr IV Q12H [facility] Last Admin: 09/11/22 05:30 Dose: 200 mls/hr Insulin Aspart (Insulin Aspart 300 Units/3 Ml Insuln.Pen) 0 units SUBCUT TID.WM.HS [facility]; Protocol Stop: 09/10/23 16:59 Last Admin: 09/11/22 11:51 Dose: Not Given Insulin Glargine (Insulin Glargine 300 Units/3 Ml Insuln.Pen) 40 units SUBCUT DAILY [facility] Stop: 09/11/23 08:59 Last Admin: 09/11/22 08:07 [...] Appearance Clear Urine pH 6.0 Ur Specific [place] 1.012 Urine Protein 300 H Urine Glucose (UA) Normal Urine Ketones Negative Urine Occult Blood Trace H Urine Nitrite Negative Ur Leukocyte Esterase Negative Urine RBC 1-2 Urine WBC None seen Urine Bacteria None seen Radiology Impressions Impressions - last 24 hours: Any impression(s) listed above is documentation that was entered by the reading physician into a diagnostic report(s) for Simon Ellen Lott. I have reviewed the report(s) and [...] the patient has advanced CKD and he willneed dialysis shortly. I had discussion with the patient about future care in case if you need dialysis and he agrees to proceed with AV fistula at this time. We will consult vascular surgery for venous mapping and AV fistula during this admission or as outpatient. * Blood pressure still elevated. Continue furosemide 40 mg twice a day and restart nifedipine 60 mgdaily. We will adjust medications to keep systolic [...] stay. Documented By: Johan Taylor MD 09/11/22 4697 Signed By: <Electronically signed by MD Johan Taylor> 09/11/22 1401 [facility] Work Phone: Consult note Author Riya Pitt [facility] October 23, 2022 11:44amNote Date/TimeJuly 2022 11:32[place] [id number] Infect. Disease Consult Note Signed Patient: Simon Lott MR#: M [id number] : 1950 Acct:[id number] Age/Sex: 72 / M Adm Date: 3 Loc: Room: [address] [place] [address] Type: ADM IN Attending Dr: Riya Sampson DO Copies to: ELÍAS Quigley DO Michael S Blank, MD~ HPI Data of Consult Consult date: 10/23/22 Requesting Physician: Riya Sampson DO Primary Care Provider: ELÍAS Quigley Consult Narrative History of present illness: Mr. Lott is a 72 year old male who is known to me from multiple hospital stays and persistentnonhealing right foot infection. He has been following with Dr. Gayle in [place]. He was discharged Back on September 12 and the plan was for him to stay on IV meropenem for 6 weeks to target osteomyelitisof the right heel. I have not seen him since then though [facility] received many phone calls about him.He had gone to emergency room October 13 [...] finally came back to the hospital and hadrepeat blood cultures drawn and again they are [...] negative unless noted below or in HPI [facility] Attestation Statement: The following information was validated [...] Substance Use Type: Alcohol Social History Comments: [facility] Allergies and Medications Allergies and Active Meds [...] 40 Mg Tablet) 40 mg PO BID@0800,1600 [facility] Stop: 10/23/23 07:59 Last Admin: 10/23/22 09:53 Dose: 40 mg Gabapentin (Gabapentin 600 Mg Tablet) 600 mg PO QPM JULIANN Stop: 10/22/23 20:59 Last Admin: 10/22/22 23:05 Dose: 600 mg Heparin Sodium (Porcine) (Heparin 5,000 Unit/Ml Vial) 5,000 unit SUBCUT Q8HR [facility] Stop: 10/22/23 21:59 Last Admin: 10/23/22 07:01 Dose: 5,000 unit Aztreonam (Azactam) 2 gm in 100 mls @ 200 mls/hr IV Q8H [facility] Last Admin: 10/23/22 07:02 Dose: 200 mls/hr Ceftazidime/Avibactam 0.94 gm/ (Sodium Chloride) 100 mls @ 50 mls/hr IV Q12H [facility]; Protocol Stop: 10/22/23 22:29 Last Admin: 10/22/22 22:59 Dose: 50 mls/hr Insulin Aspart (Insulin Aspart 300 Units/3 Ml Insuln.Pen) 0 units SUBCUT ACHS [facility]; Protocol Stop: 10/23/23 07:29 Last Admin: 10/23/22 07:55 Dose: Not Given Insulin Glargine (Insulin Glargine 300 Units/3 Ml Insuln.Pen) 42 units SUBCUT DAILY [facility] Stop: 10/23/23 08:59 Last Admin: 10/23/22 09:54 Dose: 42 units Melatonin (Melatonin 5 Mg Tablet) 5 mg PO HS PRN PRN Reason: Insomnia Stop: 10/22/23 20:39 Nifedipine (Nifedipine Er.24hr 90 Mg Tab.Er.24) 90 mg PO DAILY [facility] Stop: 10/23/23 08:59 Last Admin: 10/23/22 09:54 Dose: 90 mg Polyethylene Glycol (Polyethylene Glycol 3350 17 Gm Powd.Pack) 17 gm PO DAILY [facility] Stop: 10/23/23 08:59 Last Admin: 10/23/22 09:57 [...] 0.4 Mg Cap.Er.24h) 0.4 mg PO BID [facility] Stop: 10/22/23 20:59 Last Admin: 10/23/22 09:53 [...] looks a lot betterthan it did back inJune. Ulcer over the left heel still with some drainage. Some ulcerations noted at the toes as wellon the right. Neuro General: patient oriented x3 [...] since October 13. He has not followed withmedical advice about coming back to the emergency [...] it is externally. He follows with in [place]. Compared to my previous evaluation of his [...] <Electronically signed by MD Riya Pitt> 10/23/22 1148 [facility] Work Phone: Discharge summary Author Landon Grullon [facility] November 21, 2021 7:38pmNote Date/TimeAugust 2021 5:27pmJill Ville [id number] Discharge Summary Signed Patient: Simon Lott MR#: [id number] : 1950 Acct:[id number] Age/Sex: 71 / M Adm Date: 2 Loc: Room: [address] [place] [address]: Landon Grullon MD Copies to: [...] to Urology Routine 11/21/21 08:41 Consult to [employer] Routine Discharge Diagnosis (1) Type 2 diabetes [...] presented to the emergency department from his intermediate facility with sepsis. Patient was also noted to have acute kidney injury on his CKD stage I IIand nephrology was consulted for their assessment. Given his foot findings bothpodiatry and vascular surgery were consulted as well. He was also started on broad-spectrum antibiotic therapy with IVvancomycin and Invanz. Vascular surgery recommended likely BKA [...] [facility] Also of note, patient found to have left-sided hydronephrosis on CT imaging of the abdomen and pelvis. Renal function remained essentially stable with creatinine of around 3.4, though this was higher than patient's previous baseline. In the past few months, patient didhave ureteral stent placed and stone removal by urology. Urology came to assess patient during thisvisit and given patient's stable creatinine, and his [...] Sodium 138, Potassium 3.8, Chloride 105, Carbon Gemfgqo42.6, BUN 45 H, Creatinine 3.41 H, Est GFR ( Amer) 22, Est GFR (Non-Af Amer) 18, Glucose 104H, Calcium 8.1 L 11/21/21 06:01: Corrected WBC 15.6 H, Uncorrected WBC Count 15.6 H, RBC 3.06 L, Hgb 8.3 L, Hct 25.9L, MCV 84.4, MCH 27.0 L, MCHC 32.0 L, RDW 17.7 H, Plt Count 263, MPV 10.6 H, Neut % (Auto) 54.1, Lymph % (Auto) 31.7, Nash % (Auto) 9.6, Eos% (Auto) 3.4, Baso % (Auto) 1.2, Neut # (Auto) 8.4 H, Lymph# (Auto) 5.0 H, Nash# (Auto) 1.5 H, Eos # (Auto) 0.5 [...] conversant Discharge Plan Discharge Plan Patient Disposition: 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 Instructions: [facility] COVID-19 Discharge Instructions Prescriptions: New furosemide 40 [...] was notified of your discharge andneed for cystoscopy.Please contact the office on 11/24/21 to reschedule the procedure. ) Documented By: Landon Grullon MD 2 1726 Signed By: <Electronically signed by Landon Grullon MD> 11/21/211937 [facility] Work Phone: Discharge summary Author Riya Sampson [facility] October 24, 2022 1:48pmNote Date/TimeJuly 2022 1:48pm[place] [address] Discharge Summary Signed Patient: Simon Lott MR#: [id number] : 1950 Acct:[id number] Age/Sex: 72 / M Adm Date: 3 Loc: Room: [address] [place] [address]: Riya Sampson DO Copies to: Mervat Satniago, ELÍAS Sampson, DO~ Providers Date of Discharge: [...] healing quite nicely. Patient did not exhibit anyfurther symptoms or signs of progressing infection throughout his stay. His vital signs remained stable. When considering the patient's poor compliance with previous therapies and the duration of treatment he has already received it is thought the patient would best be served with oral antibiotics and discharged home rather than additional PICC line placement and complicating IV antibiotics goingforward. Subsequentlyhe will receive 2 more weeks of oral Levaquin per infectious disease recommenda tions on discharge. Physical Examination: GENERAL APPEARANCE: The [...] % (Auto) N/A, Lymph % (Auto) N/A, Nash % (Auto) N/A, Eos % (Auto) N/A, Baso % (Auto) N/A, Nucleat RBC Rel Count N/A, Neut # (Auto) N/A, Lymph # (Auto) N/A, Nash # (Auto) N/A, Eos # (Auto) N/A, Baso # (Auto) N/A, Lymphocytes %28, Monocytes % 7, Eosinophils % 4 H, [...] MD [Active Staff] - 11/07/22 2:30 pm [facility] [Physician] - 10/31/22 11:00 am (Post hospital appointment. Please call to reschedule if needed.) Documented By: Riya Sampson DO 10/24/22 13 36 Signed By: <Electronically signed by Riya Sampson DO> 10/24/22 1347 [facility] Work Phone: Evaluation + Plan note No data available for this section [facility] Evaluation + Plan note Future Appointments Appointment Date:06/07/2022 08:15:00 AM Scheduled Provider:Kiko Corbett MD Location:[facility] Appointment Type:URO Office Visit Diagnostic Tests Pending * Basic Metabolic Panel 04/26/22 [facility] Evaluation + Plan note Future Appointments Appointment Date:09/12/2022 11:15:00 AM Scheduled Provider:Kiko Corbett MD Location:[facility] Appointment Type:URO Office Visit [facility] Evaluation + Plan note Future Appointments Appointment Date:09/13/2022 02:15:00 PM Scheduled Provider:Kiko Corbett MD Location:[facility] Appointment Type:URO Office Visit [facility] Evaluation + Plan note Future Appointments Appointment Date:12/26/2023 03:00:00 PM Scheduled Provider:Kiko Corbett MD Location:[facility] Appointment Type:URO Office Visit [facility] Miguelangel Evaluation noteNo YaptaAugusta [employer] Other Evaluation note* Diagnosis Onset Date Resolution Status Acute hyperkalemia acuteAKI (acute kidney injury)acuteAnemiaacuteAnemia in chronic kidney disease (CKD)acuteCellulitis and abscess of right legacuteCKD (chronic kidney disease) stage 3, GFR 30-59 ml/minacuteCKD (chronic kidney disease) stage 4, GFR 15-29 ml/minacuteCOVID-19acuteHigh anion gap metabolic acidosisacuteHydronephrosis, mctpjsursVxvfqfonuehsfsaegurmwkxzxgHzvbebjhgkhperpmjAOT-[id number] test positive for detection of COVID-19 virusacuteLeukocytosisacuteOsteomyelitis of footacutePAD (peripheral artery disease)acutePVD (peripheral vascular disease)acuteSepsisacuteType 2 diabetes mellitus with diabetic chronic kidney diseaseacuteType 2 diabetes mellitus with foot ulceracuteDiabetic foot ulcer chronicAnemiaacute [facility] Work Phone: Evaluation note* Diagnosis Onset Date Resolution Status Anemia acute [facility] Work Phone: Evaluation note* Diagnosis Hydronephrosis, unspecified hydronephrosis type- Primary [facility] Diagnosis Onset Date Resolution Status Anemia acuteAnemiaacuteChronic kidney disease, stage VacuteCKD (chronic kidney disease) stage 4, GFR 15-29 ml/minacuteDiabetic foot ulcerchronicHydroureteronephrosis tyvocCHY-[id number]obynzut acidosisacuteOsteomyelitis acutePVD (peripheral vascular disease)acuteDiabetic foot ulceracuteInfected woundacuteDiabeteschronic [facility] Work Phone: Evaluation note* Diagnosis Onset Date Resolution Status Anemia acuteAnemiaacuteChronic kidney disease, stage VacuteCKD (chronic kidney disease) stage 4, GFR 15-29 ml/minacuteDiabetic foot ulcerchronicHydroureteronephrosis dpgreFXE-[id number]nnpbmdj acidosisacuteOsteomyelitis acutePVD (peripheral vascular disease)acuteAnemiaacuteChronic kidney disease, stage VacuteDiabetic foot ulcerchronicHydroureteronephrosisacuteHyperkalemia lvrjzONX-JJLI-[id number] woundacuteMetabolic acidosisacute Osteomyelitis of footacutePAD (peripheral artery disease)acuteDiabeteschronic [facility] Work Phone: Evaluation note* Diagnosis Onset Date Resolution Status Anemia acuteChronic kidney disease, stage VacuteCKD (chronic kidney disease) stage 4, GFR 15-29 ml/minacuteDiabetic foot ulcerchronicHydroureteronephrosisacute IUM-[id number]-[id number]phluwjz acidosisacuteOsteomyelitisacute PVD (peripheral vascular disease)acuteAnemiaacuteChronic kidney disease, stage V acuteDiabetic foot ulcerchronicHydroureteronephrosisacuteHyperkalemiaacute EHX-MWBV-[id number] woundacuteMetabolic acidosisacuteOsteomyelitis of footacutePAD (peripheral artery disease)acuteDiabeteschronicAnemiaacute [facility] Work Phone: Evaluation note* Diagnosis Onset Date Resolution Status Anemia acuteChronic kidney disease, stage VacuteCKD (chronic kidney disease) stage 4, GFR 15-29 ml/minacuteDiabetic foot ulcerchronicHydroureteronephrosisacute QQL-[id number]txvwtke acidosisacuteOsteomyelitisacute PVD (peripheral vascular disease)acuteAnemiaacuteChronic kidney disease, stage V acuteDiabetic foot ulcerchronicHydroureteronephrosisacuteHyperkalemiaacute VUR-IGBE-[id number] woundacuteMetabolic acidosisacuteOsteomyelitis of footacutePAD (peripheral artery disease)acuteDiabeteschronicAnemiaacuteAnemia acuteBacteremiaacuteDiabetic foot ulceracute [facility] Work Phone: Evaluation note* Diagnosis Onset Date Resolution Status Anemia acuteChronic kidney disease, stage VacuteCKD (chronic kidney disease) stage 4, GFR 15-29 ml/minacuteDiabetic foot ulcerchronicHydroureteronephrosisacute SSS-JUHX-[id number]hndykiv acidosisacuteOsteomyelitisacute PVD (peripheral vascular disease)acuteAnemiaacuteChronic kidney disease, stage V acuteDiabetic foot ulcerchronicHydroureteronephrosisacuteHyperkalemiaacute YLZ-ATMB-[id number] woundacuteMetabolic acidosisacuteOsteomyelitis of footacutePAD (peripheral artery disease)acuteDiabeteschronicAnemiaacuteAnemia acuteBacteremiaacuteDiabetic foot ulceracuteInfection due to Stenotrophomonas maltophiliaacuteLeft against medical adviceacute [facility] Work Phone: Evaluation note* Diagnosis Onset Date Resolution Status Anemia acuteChronic kidney disease, stage VacuteCKD (chronic kidney disease) stage 4, GFR 15-29 ml/minacuteDiabetic foot ulcerchronicHydroureteronephrosisacute XVX-JBJY-[id number]bpiwgfy acidosisacuteOsteomyelitisacute PVD (peripheral vascular disease)acuteAnemiaacuteChronic kidney disease, stage V acuteDiabetic foot ulcerchronicHydroureteronephrosisacuteHyperkalemiaacute DPI-PRCO-[id number] woundacuteMetabolic acidosisacuteOsteomyelitis of footacutePAD (peripheral artery disease)acuteDiabeteschronicAnemiaacute BacteremiaacuteDiabetic foot ulceracuteInfection due to Stenotrophomonas maltophiliaacuteAnemiaacute [facility] Work Phone: Evaluation note* Diagnosis Onset Date Resolution Status Anemia acuteChronic kidney disease, stage VacuteDiabetic foot ulcerchronic EonkkrrixrrymufwsbsgdmzebmJgtqrevrgfmplpoiwUJZ-HVQK-[id number] wound acuteMetabolic acidosisacuteOsteomyelitis of footacutePAD (peripheral artery disease)acuteDiabeteschronicAnemiaacuteBacteremiaacuteDiabetic foot ulceracute Infection due to Stenotrophomonas maltophiliaacuteAnemiaacute [facility] Work Phone: Evaluation note* Diagnosis Onset Date Resolution Status Anemia acuteBacteremiaacuteDiabetic foot ulceracuteInfection due to Stenotrophomonas maltophiliaacuteAnemiaacute [facility] Work Phone: Evaluation note* Diagnosis Onset Date Resolution Status Anemia acuteChronic renal insufficiency, stage IV (severe)acute [facility] Work Phone: Evaluation note* Diagnosis Onset Date Resolution Status Chronic renal insufficiency, stage IV (s evere) acuteAnemiaacute [facility] Work Phone: evaluation note* Diagnosis Onset Date Resolution Status Chronic renal insufficiency, stage IV (s evere) acuteEncounter regarding vascular access for dialysis for end-stage renal diseaseacuteHemodialysis access, AV graftacuteAnemiaacute [facility] Work Phone: evaluation note* Diagnosis Onset Date Resolution Status Chronic renal insufficiency, stage IV (s evere) acuteEncounter regarding vascular access for dialysis for end-stage renal diseaseacuteHemodialysis access, AV graftacuteAnemiaacuteAnemia of renal disease acuteChronic kidney disease, stage VacuteHydronephrosisacuteHyperkalemiaacute [id number]-VHYU-[id number] [facility] Work Phone: evaluation note* Diagnosis Onset Date Resolution Status Encounter regarding vascular access for dialysis for end-stage renal disease acuteHemodialysis access, AV graftacuteAnemiaacuteAnemia of renal diseaseacute Chronic kidney disease, stage VacuteHydronephrosisacuteHyperkalemiaacute YLC-[id number]-[id number] [facility] Work Phone: evaluation note* Diagnosis Onset Date Resolution Status Encounter regarding vascular access for dialysis for end-stage renal disease acuteHemodialysis access, AV graftacuteAnemia of renal diseaseacuteChronic kidney disease, stage VacuteHydronephrosisacuteHyperkalemiaacute YKQ-[id number] [facility] Work Phone: Evaluation note* Diagnosis Onset Date Resolution Status Encounter regarding vascular access for dialysis for end-stage renal disease acuteHemodialysis access, AV graftacuteAnemia of renal diseaseacuteChronic kidney disease, stage VacuteHydronephrosisacuteHyperkalemiaacute ENS-LEYW-[id number]aptAbqdoo of renal diseaseacute Hemodialysis access, AV graftacute [facility] Work Phone: Evaluation note* Diagnosis Onset Date Resolution Status Encounter regarding vascular access for dialysis for end-stage renal disease acuteHemodialysis access, AV graftacuteAnemia of renal diseaseacuteChronic kidney disease, stage VacuteHydronephrosisacuteHyperkalemiaacute PRH-[id number]nqeZgjpqw of renal diseaseacute Hemodialysis access, AV graftacuteAV fistulaacuteEnd-stage renal disease on hemodialysisacute [facility] Work Phone: evaluation note* Diagnosis Onset Date Resolution Status AV fistula acuteEnd-stage renal disease on hemodialysisacuteAV fistulaacuteEnd-stage renal disease on hemodialysisacuteEnd-stage renal disease on hemodialysisacutePAD (peripheral artery disease)acute [facility] Work Phone: evaluation note* Diagnosis Onset Date Resolution Status AV fistula acuteEnd-stage renal disease on hemodialysisacuteEnd-stage renal disease on hemodialysisacutePAD (peripheral artery disease)acute [facility] Work Phone: evaluation note* Diagnosis Onset Date Resolution Status AV fistula acuteEnd-stage renal disease on hemodialysisacuteEnd-stage renal disease on hemodialysisacutePAD (peripheral artery disease)acuteEnd-stage renal disease on hemodialysisacuteHemodialysis access, AV graftacuteWound of right footacute [facility] Work Phone: evaluation note* Diagnosis Onset Date Resolution Status End-stage renal disease on hemodialysis acutePAD (peripheral artery disease)acuteEnd-stage renal disease on hemodialysis acuteHemodialysis access, AV graftacuteWound of right footacuteEnd-stage renal disease on hemodialysisacute [facility] Work Phone: evaluation note* Diagnosis Onset Date Resolution Status End-stage renal disease on hemodialysis acuteHemodialysis access, AV graftacuteWound of right footacuteEnd-stage renal disease on hemodialysisacute [facility] Work Phone: evaluation note* Diagnosis Onset Date Resolution Status End-stage renal disease on hemodialysis acuteHemodialysis access, AV graftacuteWound of right footacuteEnd-stage renal disease on hemodialysisacuteDialysis AV fistula malfunctionacute [facility] Work Phone: Evaluation noteNo assessment information available [facility] Work Phone: Evaluation note* Diagnosis Onset Date Resolution Status Admit Date Elevated troponin I level acuteJune 2024 9:19pmEnd-stage renal disease on hemodialysisacuteJun2024 9:19pmNauseaacuteJune 2024 9:19pmDiabetic foot ulcerchronicJun2024 9:19pm [facility] Work Phone: History and physical note Author Chris Mccarthy [facility] November 14, 2021 9:37pmNote Date/TimeAugust 2021 9:16pm[place] [address] Hospitalist H&P Signed Patient: Simon Lott MR#: [id number] : 1950 Acct:[id number] Age/Sex: 71 / M Adm Date: 2 Loc: Room: [address] [place] [address] Type: ADM IN Attending Dr: Chris Mccarthy DO Copies to: Maye Murray,DO Chris Mccarthy, DO~ HPI DATE OF EXAMINATION: 11/14/21 CHIEF COMPLAINT: sent from SNF for fever. Septic diabetic foot wound. HISTORY OF PRESENT ILLNESS: This is a 71-year-old man who was sent over from the intermediate facility today due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 Stop: 11/15/22 08:59 Last Admin: 11/16/21 09:22 Dose: 75 mg Dextrose (Dextrose 50% In Water 25 Gm/50 Ml Syringe) 0 gm IV-PUSH PRN PRN PRN Reason: Hypoglycemia Stop: 11/14/22 17:37 Duloxetine HCl (Duloxetine 60 Mg Capsule.) 60 mg PO DAILY [facility] Stop: 11/16/22 08:59 Last Admin: 11/16/21 09:22 Dose: 60 mg Ferrous Sulfate (Ferrous Sulfate 324 Mg Tablet.) 324 mg PO MoWeFr@0900 JULIANN Stop: 11/16/22 08:59 Last Admin: 11/16/21 09:22 Dose: 324 mg Folic Acid (Folic Acid 1 Mg Tablet) 1 mg PO DAILY [facility] Stop: 11/15/22 08:59 Last Admin: 11/16/21 09:22 Dose: 1 mg Furosemide (Furosemide 40 Mg/4 Ml Vial) 40 mg IV-PUSH BID@0800,1600 [facility] Stop: 11/15/22 15:59 Last Admin: 11/16/21 09:21 Dose: 40 mg Gabapentin (Gabapentin 600 Mg Tablet) 600 mg PO QPM JULIANN Stop: 11/15/22 20:59 Last Admin: 11/15/21 21:56 Dose: 600 mg Glucose (Dextrose 40% Gel 15 Gm Tube) 0 gm PO PRN PRN PRN Reason: Hypoglycemia Stop: 11/14/22 17:37 Heparin Sodium (Porcine) (Heparin 5,000 Unit/Ml Vial) 5,000 unit SUBCUT Q12HR [facility] Stop: 11/14/22 20:59 Last Admin: 11/16/21 09:21 Dose: 5,000 unit Hydralazine HCl (Hydralazine 20 Mg/Ml Vial) 10 mg IV-PUSH Q4H PRN PRN Reason: Hypertension Stop: 11/14/22 21:49 Last Admin: 11/15/21 15:59 Dose: 10 mg Meropenem (Merrem) 1 gm in 100 mls @ 200 mls/hr IV Q12H [facility] Last Admin: 11/16/21 05:42 Dose: 200 mls/hr Insulin Aspart (Insulin Aspart 300 Units/3 Ml Insuln.Pen) 0 units SUBCUT TID.WM.[facility]; Protocol Stop: 11/14/22 21:59 Last Admin: 11/16/21 11:43 Dose: Not Given Insulin Detemir (Insulin Detemir 300 Units/3 Ml Insuln.Pen) 42 units SUBCUT DAILY [facility] Stop: 11/15/22 08:59 Last Admin: 11/16/21 09:24 Dose: 42 units Losartan Potassium (Losartan 25 Mg Tablet) 25 mg PO DAILY [facility] Stop: 11/16/22 12:59 Loteprednol Etabonate (Loteprednol 0.5% Op Susp 100 Drops/5 Ml Bottle) 1 drops EYE-LEFT QID [facility] Stop: 11/14/22 17:59 Last Admin: 11/16/21 09:23 [...] BID.WITH.MEALS JULIANN Stop: 11/15/22 07:59 Last Admin: 11/16/21 [...] Alla Phan M.D.11/15/2021 2:58 PM Dictation Location: [place] [address] Abdomen/Pelvis CT 11/15/21 08:00 IMPRESSION: BIBASILAR ATELECTASIS. LEFT NEPHROLITHIASIS. LEFT HYDRONEPHROSIS AND PROXIMAL HYDROURETER OF UNCERTAIN ETIOLOGY. URETERAL STRICTURE IS POSSIBLE GIVEN THE HISTORY OF URETERAL STONES AND STENT. SLIGHT URINARY BLADDER WALL THICKENING THOUGH THIS MAY RELATE TO INCOMPLETE DISTENTION. INCREASING INGUINAL AND PELVIC ADENOPATHY, GREATER ON THE RIGHT. SUBCUTANEOUS EDEMA. Impression dictated by: Alla Phan M.D.11/15/2021 1:18 PM Dictation Location: [place] [address] Any impression(s) listed above is documentation that [...] by Olga Lidia Martin MD> 11/16/21 1524 [facility] Work Phone: Progress note Author Julian Jones [facility] November 17, 2021 12:46pmNote Date/TimeAugust 2021 12:46pm[place] [address] Hospitalist Progress Note Signed Patient: Simon Lott MR#: [id number] : 1950 Acct:[id number] Age/Sex: 71 / M Adm Date: 2 Loc: Room: [address] [place] [address] Type: ADM IN Attending Dr: Julian Jones MD Copies to: ~ Date of Service: 11/17/2021 Subjective Subjective Narrative: Patient was seen and examined at bedside. Remained afebrile overnight. Reportsfeeling better today.No major events overnight. Exam Physical Exam Vital Signs: Temp Pulse Resp BP Pulse Ox O2 Del Method 97.6 F 95 H 20 188/99 H 99 Room Air 11/17/21 12:00 11/17/21 12:00 11/17/21 12:11/17/21 12:00 11/17/21 12:11/17/21 12:00 Narrative: General: awake and alert, no [...] 11/16/21 09:00 11/17/21 09:08 Duloxetine 60 Mg Capsule. PO 11/16/22 08:59 [...] signed by Julian Jones MD> 11/17/21 1246 [facility] Work Phone: Progress note Author Olga Lidia Martin [facility] November 17, 2021 1:02pmNote Date/TimeAugust 2021 1:02pm[place] [address] Nephrology Progress Note Signed Patient: Simon Lott MR#: [id number] : 1950 Acct:[id number] Age/Sex: 71 / M Adm Date: 2 Loc: Room: [address] [place] [address] Type: ADM IN Attending Dr: Julian Jones MD Copies to: ~ Date of Service: 11/17/2021 Subjective Subjective Narrative: This is a 71-year male with medical history of CKD, diabetes mellitus, hypertension, anemia, secondary hyperparathyroidism, alcoholic liver disease, PAD, diabetic foot ulcer, CVA, hepatitis C and nephrolithiasis [facility] due to the fever. On evaluation emergency [...] missed the last appointment. Nephrology is consulted forhis CKD, hyperkalemia and metabolic acidosis management. Interval [...] visible mass Skin: No rashes or bruises DRAMA DIRECTOR: Awake,Alert, following simple command Musculoskeletal: No joint [...] 226 Gm Bottle) 1 applic TOPICAL QSHIFT [facility] Stop: 11/14/22 21:59 Last Admin: 11/17/21 05:44 Dose: 1 applic Ascorbic Acid (Ascorbic Acid 500 Mg Tablet) 500 mg PO DAILY [facility] Stop: 11/15/22 08:59 Last Admin: 11/17/21 09:08 Dose: 500 mg Atorvastatin Calcium (Atorvastatin 10 Mg Tablet) 10 mg PO HS [facility] Stop: 11/14/22 21:59 Last Admin: 11/16/21 21:23 Dose: 10 mg Clopidogrel Bisulfate (Clopidogrel Bisulfate 75 Mg Tablet) 75 mg PO DAILY JULIANN Stop: 11/15/22 08:59 Last Admin: 11/17/21 09:09 Dose: 75 mg Dextrose (Dextrose 50% In Water 25 Gm/50 Ml Syringe) 0 gm IV-PUSH PRN PRN PRN Reason: Hypoglycemia Stop: 11/14/22 17:37 Duloxetine HCl (Duloxetine 60 Mg Capsule.) 60 mg PO DAILY [facility] Stop: 11/16/22 08:59 Last Admin: 11/17/21 09:08 Dose: 60 mg Ferrous Sulfate (Ferrous Sulfate 324 Mg Tablet.) 324 mg PO MoWeFr@0900 [facility] Stop: 11/16/22 08:59 Last Admin: 11/16/21 09:22 Dose: 324 mg Folic Acid (Folic Acid 1 Mg Tablet) 1 mg PO DAILY [facility] Stop: 11/15/22 08:59 Last Admin: 11/17/21 09:08 Dose: 1 mg Furosemide (Furosemide 40 Mg/4 Ml Vial) 40 mg IV-PUSH BID@0800,1600 [facility] Stop: 11/15/22 15:59 Last Admin: 11/16/21 17:20 Dose: 40 mg Gabapentin (Gabapentin 600 Mg Tablet) 600 mg PO QPM JULIANN Stop: 11/15/22 20:59 Last Admin: 11/16/21 21:23 Dose: 600 mg Glucose (Dextrose 40% Gel 15 Gm Tube) 0 gm PO PRN PRN PRN Reason: Hypoglycemia Stop: 11/14/22 17:37 Heparin Sodium (Porcine) (Heparin 5,000 Unit/Ml Vial) 5,000 unit SUBCUT Q12HR [facility] Stop: 11/14/22 20:59 Last Admin: 11/17/21 09:10 Dose: 5,000 unit Hydralazine HCl (Hydralazine 20 Mg/Ml Vial) 10 mg IV-PUSH Q4H PRN PRN Reason: Hypertension Stop: 11/14/22 21:49 Last Admin: 11/15/21 15:59 Dose: 10 mg Meropenem (Merrem) 1 gm in 100 mls @ 200 mls/hr IV Q12H [facility] Last Admin: 11/17/21 05:43 Dose: 200 mls/hr Insulin Aspart (Insulin Aspart 300 Units/3 Ml Insuln.Pen) 0 units SUBCUT TID.WM.HS [facility]; Protocol Stop: 11/14/22 21:59 Last Admin: 11/17/21 09:09 Dose: Not Given Insulin Detemir (Insulin Detemir 300 Units/3 Ml Insuln.Pen) 42 units SUBCUT DAILY [facility] Stop: 11/15/22 08:59 Last Admin: 11/17/21 09:10 Dose: 42 units Losartan Potassium (Losartan 50 Mg Tablet) 50 mg PO DAILY [facility] Stop: 11/18/22 08:59 Loteprednol Etabonate (Loteprednol 0.5% Op Susp 100 Drops/5 Ml Bottle) 1 drops EYE-LEFT QID [facility] Stop: 11/14/22 17:59 Last Admin: 11/17/21 09:10 [...] Documented By: Olga Lidia Martin MD 11/17/21 1256 Signed By: <Electronically signed by Olga Lidia Martin MD> 11/17/21 1302 [facility] Work Phone: Progress note Author Olga Lidia Martin [facility] November 18, 2021 12:35pmNote Date/TimeAugust 2021 12:24pm[place] [id number] Nephrology Progress Note Signed Patient: Simon Lott MR#: [id number] : 1950 Acct:[id number] Age/Sex: 71 / M Adm Date: 2 Loc: Room: [address] [place] [address] Type: ADM IN Attending Dr: Deo Bernabe DO Copies to: ~ Date of Service: 11/18/2021 Subjective Subjective Narrative: This is a 71-year male with medical history of CKD, diabetes mellitus, hypertension, anemia, secondary hyperparathyroidism, alcoholic liver disease, PAD, diabetic foot ulcer, CVA, hepatitis C and nephrolithiasis [facility] due to [facility]. On evaluation emergency [...] missed the last appointment. Nephrology is consulted forhis CKD, fluid overload, hyperkalemia and metabolic acidosis [...] for infected right foot. Vascular surgery recommended nonurgentBKA or AKA due to his severe PAD. [...] visible mass Skin: No rashes or bruises DRAMA DIRECTOR: Awake,Alert, following simple command Musculoskeletal: No joint [...] TID.WITH.MEALS JULIANN Stop: 11/15/22 07:59 Last Admin: 11/18/21 11:35 [...] 324 Mg Tablet.) 324 mg PO MoWeFr@0900 [facility] Stop: 11/16/22 08:59 Last Admin: 11/16/21 09:22 [...] 100 mls @ 200 mls/hr IV Q12H [facility] Last Admin: 11/18/21 06:08 Dose: 200 mls/hr Insulin Aspart (Insulin Aspart 300 Units/3 Ml Insuln.Pen) 0 units SUBCUT TID.WM.HS [facility]; Protocol Stop: 11/14/22 21:59 Last Admin: 11/18/21 09:03 Dose: Not Given Insulin Detemir (Insulin Detemir 300 Units/3 Ml Insuln.Pen) 42 units SUBCUT DAILY [facility] Stop: 11/15/22 08:59 Last Admin: 11/18/21 09:04 Dose: 42 units Losartan Potassium (Losartan 50 Mg Tablet) 50 mg PO DAILY [facility] Stop: 11/18/22 08:59 Last Admin: 11/18/21 09:04 Dose: 50 mg Loteprednol Etabonate (Loteprednol 0.5% Op Susp 100 Drops/5 Ml Bottle) 1 drops EYE-LEFT QID [facility] Stop: 11/14/22 17:59 Last Admin: 11/18/21 09:05 [...] 250 Mg Capsule) 250 mg PO BID.WITH.MEALS [facility] Stop: 11/15/22 07:59 Last Admin: 11/18/21 09:04 Dose: 250 mg Sodium Bicarbonate (Sodium Bicarbonate 650 Mg Tablet) 650 mg PO TID [facility] Stop: 11/15/22 13:59 Last Admin: 11/18/21 09:05 [...] combination of the CKD, metabolic acidosis, potassium supplementand losartan. His potassium is back to normal [...] CKD and iron deficiency. His hemoglobin is lowbut stable. His serum free light chain ratio, [...] avoid IV iron. Will follow UPEP and urineimmunofixation. * Continue empiric antibiotic adjust as needed based on culture sensitivity. Pharmacy to dose medication. * Continue insulin and adjust the dose as needed keep the blood sugar between 100 to 150 mg/dL. * Check renal function daily and monitor input output. Documented By: Olga Lidia Martin MD 11/18/21 1222 Signed By: <Electronically signed by Olga Lidia Martin MD> 11/18/21 1126 [facility] Work Phone: Progress note Author Deo Bernabe [facility] November 18, 2021 3:44pmNote Date/TimeAugust 2021 3:44[place] [address] Hospitalist Progress Note Signed Patient: Simon Lott MR#: [id number] : 1950 Acct:[id number] Age/Sex: 71 / M Adm Date: 2 Loc: 4 Room: [address] [place] [address] Type: ADM IN Attending Dr: Deo Bernabe DO Copies to: ~ Date of Service: 11/18/2021 Subjective Subjective Narrative: Patient was seen and examined at bedside. Remained afebrile overnight. Reportsfeeling better today.No major events overnight. Patient asking when he [...] Insuln.Pen SUBCUT 11/14/22 21:59 Not Given TID.WM.HS [facility] Protocol Insulin Detemir 42 units 11/15/21 09:00 [...] signed by Deo Bernabe DO> 11/18/21 1544 [facility] Work Phone: Progress note Author Landon Grullon [facility] November 19, 2021 3:23pmNote Date/TimeAugust 2021 3:09pm[place] [address] Hospitalist Progress Note Signed Patient: Simon Lott MR#: [id number] : 1950 Acct:[id number] Age/Sex: 71 / M Adm Date: 2 Loc: Room: [address] [place] [address] Type: ADM IN Attending Dr: Landon Grullon [...] Gm Bottle TOPICAL 11/14/22 21:59 [facility] J[facility] Administration Ascorbic Acid 500 mg 11/15/21 [...] Insuln.Pen SUBCUT 11/14/22 21:59 Not Given TID.WM.HS [facility] Protocol Insulin Detemir 42 units 11/15/21 09:00 [...] signed by Landon Grullon MD> 11/19/21 1523 [facility] Work Phone: Progress note [facility] November 19, 2021 11:24pmNote Date/TimeAugust 2021 11:05pm[place] [address] Nephrology Progress Note Signed Patient: Simon Lott MR#: [id number] : 1950 Acct:[id number] Age/Sex: 71 / M Adm Date: 2 Loc: Room: [address] [place] [address] Type: ADM IN Attending Dr: Landon Grullon MD Copies to: ~ Date of Service: 11/19/2021 Subjective Subjective Narrative: Mr. Lott is a 71-year male with medical history of CKD, diabetes mellitus, hypertension, anemia, secondary hyperparathyroidism, alcoholic liver disease, PAD, diabetic foot ulcer, CVA, hepatitisC and nephrolithiasis. [facility]. In ER, he was found to hve hyperkalemia serum potassium 6.1 mg/L and metabolic acidosis with serum bicarbonate 17 mmol/L. Patient was also noted to have a leukocytosis and tachycardia. He had a Right foot x-ray which showed finding concerning for osteomyelitis of the fifth metatarsal bone. Patient was given IV fluidand was started on broad-spectrum antibiotics for diabetic [...] normal with diuresis and correction of acidosis. Heis currently on oral sodium bicarbonate and Lasix. Losartan 50 mg daily was added at the blood pressure still elevated despite diuresis. Creatinine is about the same 3 to 3.5 mg/dL. Potassium 3.4 mmol/L despite losartan. He was seen by the vascular surgery for infected right foot. Vascular surgery recommended nonurgentBKA or AKA due to his severe PAD. [...] 50 Mg Tablet) 100 mg PO TID.WITH.MEALS [facility] Stop: 11/15/22 07:59 Last Admin: 11/19/21 18:18 [...] 100 mls @ 200 mls/hr IV Q12H [facility] Last Admin: 11/19/21 18:18 Dose: 200 mls/hr Insulin Aspart (Insulin Aspart 300 Units/3 Ml Insuln.Pen) 0 units SUBCUT TID.WM.HS [facility]; Protocol Stop: 11/14/22 21:59 Last Admin: 11/19/21 21:46 Dose: Not Given Insulin Detemir (Insulin Detemir 300 Units/3 Ml Insuln.Pen) 42 units SUBCUT DAILY [facility] Stop: 11/15/22 08:59 Last Admin: 11/19/21 08:50 Dose: 42 units Losartan Potassium (Losartan 50 Mg Tablet) 50 mg PO DAILY [facility] Stop: 11/18/22 08:59 Last Admin: 11/19/21 08:49 Dose: 50 mg Loteprednol Etabonate (Loteprednol 0.5% Op Susp 100 Drops/5 Ml Bottle) 1 drops EYE-LEFT QID [facility] Stop: 11/14/22 17:59 Last Admin: 11/19/21 21:45 Dose: 1 drops Melatonin (Melatonin 5 Mg Tablet) 5 mg PO HS PRN PRN Reason: Insomnia Stop: 11/14/22 17:41 Last Admin: 11/16/21 21:23 Dose: 5 mg Metoprolol Tartrate (Metoprolol Tartrate 5 Mg/5 Ml Vial) 5 mg IV-PUSH Q4H PRN PRN Reason: Blood Pressure Stop: 11/14/22 21:49 Nifedipine (Nifedipine Er.24hr 30 Mg Tab.Er.24) 30 mg PO DAILY [facility] Stop: 11/18/22 15:39 Last Admin: 11/19/21 08:49 Dose: 30 mg Saccharomyces Boulardii (Saccharomyces Boulardii 250 Mg Capsule) 250 mg PO BID.WITH.MEALS [facility] Stop: 11/15/22 07:59 Last Admin: 11/19/21 18:18 Dose: 250 mg Sodium Bicarbonate (Sodium Bicarbonate 650 Mg Tablet) 650 mg PO TID [facility] Stop: 11/15/22 13:59 Last Admin: 11/19/21 21:45 [...] Fawad Nicholson M.D.11/19/2021 3:27 PM Dictation Location: [place] [address] Any impression(s) listed above is documentation that [...] Serum creatinine is slightly worse than baseline 2.5mg/dL in the setting of osteoarthritis however he [...] combination of the CKD, metabolic acidosis, potassium supplementand losartan. His potassium is back to normal [...] CKD and iron deficiency. His hemoglobin is lowbut stable. His serum free light chain ratio, [...] avoid IV iron. Will follow UPEP and urineimmunofixation that is less likely to be positive since he has normal kappa/lambda ratio. * Continue meropenem, pharmacy dose according to renal status. * Urology was consulted, patient is going to have cystoscopy and retrograde pyelogram with possiblestent placement for maximal decompression of left hy dronephrosis to see if renal function will improve. * Continue insulin and adjust the dose as needed keep the blood sugar between 100 to 150 mg/dL. * Check renal function daily and monitor input output. Documented By: Johan Taylor MD 11/19/212301 Signed By: <Electronically signed by MD Johan Taylor> 11/19/214 [facility] Work Phone: Progress note Author Riya Pitt [facility] November 20, 2021 7:34amNote Date/TimeAugust 2021 7:34[place] [address] Infect. Disease Progress Note Signed Patient: Simon Lott MR#: [id number] : 1950 Acct:[id number] Age/Sex: 71 / M Adm Date: 2 Loc: Room: [address] [place] [address] Type: ADM IN Attending Dr: Landon Grullon [...] Tablet) 10 mg PO HS JULIANN Stop: 08/10/23 21:59 Last Admin: 11/19/21 21:45 Dose: 10 [...] 324 Mg Tablet.) 324 mg PO MoWeFr@0900 [facility] Stop: 11/16/22 08:59 Last Admin: 11/19/21 08:50 Dose: 324 mg Folic Acid (Folic Acid 1 Mg Tablet) 1 mg PO DAILY JULIANN Stop: 11/15/22 08:59 Last Admin: 11/19/21 08:50 Dose: 1 mg Furosemide (Furosemide 40 Mg/4 Ml Vial) 40 mg IV-PUSH BID@0800,1600 [facility] Stop: 11/15/22 15:59 Last Admin: 11/19/21 16:43 [...] 100 mls @ 200 mls/hr IV Q12H [facility] Last Admin: 11/20/21 05:47 Dose: 200 mls/hr Insulin Aspart (Insulin Aspart 300 Units/3 Ml Insuln.Pen) 0 units SUBCUT TID.WM.HS [facility]; Protocol Stop: 11/14/22 21:59 Last Admin: 11/19/21 21:46 Dose: Not Given Insulin Detemir (Insulin Detemir 300 Units/3 Ml Insuln.Pen) 42 units SUBCUT DAILY [facility] Stop: 11/15/22 08:59 Last Admin: 11/19/21 08:50 Dose: 42 units Losartan Potassium (Losartan 50 Mg Tablet) 50 mg PO DAILY [facility] Stop: 11/18/22 08:59 Last Admin: 11/19/21 08:49 Dose: 50 mg Loteprednol Etabonate (Loteprednol 0.5% Op Susp 100 Drops/5 Ml Bottle) 1 drops EYE-LEFT QID [facility] Stop: 11/14/22 17:59 Last Admin: 11/19/21 21:45 Dose: 1 drops Melatonin (Melatonin 5 Mg Tablet) 5 mg PO HS PRN PRN Reason: Insomnia Stop: 11/14/22 17:41 Last Admin: 11/16/21 21:23 Dose: 5 mg Metoprolol Tartrate (Metoprolol Tartrate 5 Mg/5 Ml Vial) 5 mg IV-PUSH Q4H PRN PRN Reason: Blood Pressure Stop: 11/14/22 21:49 Nifedipine (Nifedipine Er.24hr 30 Mg Tab.Er.24) 30 mg PO DAILY [facility] Stop: 11/18/22 15:39 Last Admin: 11/19/21 08:49 Dose: 30 mg Saccharomyces Boulardii (Saccharomyces Boulardii 250 Mg Capsule) 250 mg PO BID.WITH.MEALS [facility] Stop: 11/15/22 07:59 Last Admin: 11/19/21 18:18 Dose: 250 mg Sodium Bicarbonate (Sodium Bicarbonate 650 Mg Tablet) 650 mg PO TID [facility] Stop: 11/15/22 13:59 Last Admin: 11/19/21 21:45 Dose: 650 mg Sodium Chloride (Sodium Chloride 0.9 % 10 Ml Syringe) 0 ml IV-PUSH PRN PRN PRN Reason: Flush Stop: 11/14/22 12:53 Last Admin: 11/18/21 09:06 Dose: 10 ml Sodium Chloride (Sodium Chloride 0.9 % 10 Ml Syringe) 0 ml IV-PUSH QSHIFT [facility] Stop: 11/14/22 21:59 Last Admin: 11/20/21 05:47 [...] appeared to be new. He is having goodurine output now with Sanchez catheter in place. [...] signed by MD Riya Pitt> 11/20/21 0734 [facility] Work Phone: Progress note Author Landon Grullon [facility] November 20, 2021 4:01pmNote Date/TimeAugust 2021 1:41pm[place] [address] Hospitalist Progress Note Signed Patient: Simon Lott MR#: [id number] : 1950 Acct:[id number] Age/Sex: 71 / M Adm Date: 2 Loc: Room: [address] [place] [address] Type: ADM IN Attending Dr: Landon Grullon MD Copies to: ~ Date of Service: 11/20/2021 Subjective Subjective Narrative: Patient seen and assessed at bedside today. He notes no significant pain or discomfort. He is eagerly awaiting PICC line placement, as he would like to be discharged back to intermediate facility.No acute events were noted overnight. I did discuss with him regarding CT abdominal findings of narrowing of the ureter on the right side. I did report that given his COVID-19 positivity, he is at increased risk for perioperative complication. At this time, he is not interested in further inpatienttreatment of this condition. Henotes no abdominal pain, dysuria, hematuria and Sanchez catheter is inplace draining clear, yellow urine. Exam Physical Exam [...] Insuln.Pen SUBCUT 11/14/22 21:59 Not Given TID.WM.HS [facility] Protocol Insulin Detemir 42 units 11/15/21 09:00 [...] Capsule PO 11/15/22 07:59 Not Given BID.WITH.MEALS [facility] Sodium Bicarbonate 650 mg 11/15/21 14:00 11/20/21 [...] with Dr. Pitt we will plan on 2- weekcourse of antibiotic therapy via PICC line -Antibiotic [...] signed by Landon Grullon MD> 11/20/21 1601 [facility] Work Phone: Progress note Author [facility] November 20, 2021 6:31pmNote Date/TimeAugust 2021 6:31pm[place] [address] Nephrology Progress Note Signed Patient: Simon Lott MR#: [id number] : 1950 Acct:[id number] Age/Sex: 71 / M Adm Date: 2 Loc: Room: [address] [place] [address] Type: ADM IN Attending Dr: Landon Grullon MD Copies to: ~ Date of Service: 11/20/2021 Subjective Subjective Narrative: Mr. Lott is a 71-year male with medical history of CKD, diabetes mellitus, hypertension, anemia, secondary hyperparathyroidism, alcoholic liver disease, PAD, diabetic foot ulcer, CVA, hepatitisC and nephrolithiasis. [facility]. In ER, he was found to hve hyperkalemia serum potassium 6.1 mg/L and metabolic acidosis with serum bicarbonate 17 mmol/L. Patient was also noted to have a leukocytosis and tachycardia. He had a Right foot x-ray which showed finding concerning for osteomyelitis of the fifth metatarsal bone. Patient was given IV fluidand was started on broad-spectrum antibiotics for diabetic [...] for infected right foot. Vascular surgery recommended nonurgentBKA or AKA due to his severe PAD. He was also seen by thepodiatry and option of hyperbaric oxygen was discussed as patient is refusing BKA. Urology input is appreciated. Patient is going to have cystoscopy with possiblestent as outpatient.Patient would like to hold off on any invasive intervention at this point. Exam Physical Exam Vital Signs: Temp Pulse Resp BP Pulse Ox O2 Del Method 37.0 C 82 18 148/88 H 96 Room Air 11/20/21 16:00 11/20/21 16:00 11/20/21 16:00 11/20/21 16:00 11/20/21 16:11/20/21 16:00 Narrative: Constitutional: AA [...] Mg/4 Ml Vial) 40 mg IV-PUSH BID@0800,1600 [facility] Stop: 11/15/22 15:59 Last Admin: 11/20/21 17:30 Dose: 40 mg Gabapentin (Gabapentin 600 Mg Tablet) 600 mg PO QPM JULIANN Stop: 11/15/22 20:59 Last Admin: 11/19/21 21:45 Dose: 600 mg Glucose (Dextrose 40% Gel 15 Gm Tube) 0 gm PO PRN PRN PRN Reason: Hypoglycemia Stop: 11/14/22 17:37 Heparin Sodium (Porcine) (Heparin 5,000 Unit/Ml Vial) 5,000 unit SUBCUT Q12HR [facility] Stop: 11/14/22 20:59 Last Admin: 11/20/21 12:33 Dose: 5,000 unit Hydralazine HCl (Hydralazine 20 Mg/Ml Vial) 10 mg IV-PUSH Q4H PRN PRN Reason: Hypertension Stop: 11/14/22 21:49 Last Admin: 11/15/21 15:59 Dose: 10 mg Ertapenem 0.5 gm/ Sodium (Chloride) 100 mls @ 200 mls/hr IV Q24H [facility] Stop: 11/20/22 16:59 Last Admin: 11/20/21 17:30 Dose: 200 mls/hr Vancomycin HCl 1.25 gm/ (Dextrose) 275 mls @ 183.333 mls/hr IV ONCE ONE Stop: 11/20/21 19:29 Insulin Aspart (Insulin Aspart 300 Units/3 Ml Insuln.Pen) 0 units SUBCUT TID.[facility]; Protocol Stop: 11/14/22 21:59 Last Admin: 11/20/21 17:31 Dose: Not Given Insulin Detemir (Insulin Detemir 300 Units/3 Ml Insuln.Pen) 42 units SUBCUT DAILY [facility] Stop: 11/15/22 08:59 Last Admin: 11/20/21 12:36 Dose: 42 units Losartan Potassium (Losartan 50 Mg Tablet) 50 mg PO DAILY [facility] Stop: 11/18/22 08:59 Last Admin: 11/20/21 12:33 [...] 30 Mg Tab.Er.24) 30 mg PO DAILY [facility] Stop: 11/18/22 15:39 Last Admin: 11/20/21 12:33 Dose: 30 mg Saccharomyces Boulardii (Saccharomyces Boulardii 250 Mg Capsule) 250 mg PO BID.WITH.MEALS [facility] Stop: 11/15/22 07:59 Last Admin: 11/20/21 17:31 [...] Serum creatinine is slightly worse than baseline 2.5mg/dL in the setting of cellulitis however he [...] combination of the CKD, metabolic acidosis, potassium supplementand losartan. He is back on losartan with [...] CKD and iron deficiency. His hemoglobin is lowbut stable. His serum free light chain ratio, [...] <Electronically signed by MD Johan Taylor> 11/20/21 183 [facility] Work Phone: Progress note Author Johan Taylor [facility] November 21, 2021 5:16pmNote Date/TimeAugust 2021 5:16pmJill [place] [id number] Nephrology Progress Note Signed Patient: Simon Lott MR#: [id number] : 1950 Acct:[id number] Age/Sex: 71 / M Adm Date: 2 Loc: 4P Room: 9J8284-1 Type: ADM IN Attending Dr: Landon Grullon MD Copies to: ~ Date of Service: 11/21/2021 Subjective Subjective Narrative: Mr. Lott is a 71-year male with medical history of CKD, diabetes mellitus, hypertension, anemia, secondary hyperparathyroidism, alcoholic liver disease, PAD, diabetic foot ulcer, CVA, hepatitisC and nephrolithiasis. [facility]. In ER, he was found to have hyperkalemia serum potassium 6.1 mg/L and metabolic acidosis with serum bicarbonate 17 mmol/L. Patient was also noted to have a leukocytosis and tachycardia. He had a Right foot x-ray whichshowed finding concerning for osteomyelitis of the fifth [...] preparation to [facility]. He did refuse invasive intervention during hospitalization [...] for infected right foot. Vascular surgery recommended nonurgentBKA or AKA due to his severe PAD. [...] 75 Mg Tablet) 75 mg PO DAILY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 D64.9 N18.5 N18.4 n184 Anemia.. e55.9Reason for VisitAnemia Chief Complaint r74.8 N18.9 D63.1 D64.9 N18.5 N18.4 n184 e55.9 N18.9 D63.1 Anemia.. ESRDReason for VisitAnemia Chief Complaint N18.9 D63.1 D64.9 N18.5 N18.4 n184 e55.9 N18.9 D63.1 ESRD Anemia..Reason for VisitAnemia Chief Complaint D64.9 N18.5 N18.4 n184 e55.9 N18.9 D63.1 ESRD N18.4 Anemia.. ESRDReason for VisitAnemia Chief Complaint D64.9 N18.5 N18.4 n184 e55.9 N18.9 D63.1 ESRD N18.4 Anemia.. ESRDReason for VisitAnemia Chronic renal insufficiency, stage IV (severe) Chief Complaint Renal 2 Month Follow Up n184 To Go Over Vmap From 03/04/2023 e55.9 N18.9 D63.1 ESRD N18.4 ESRD Renal 2 Month Follow Up n18.9 d63.1 Anemia..Reason for VisitChronic renal insufficiency, stage IV (severe) Anemia Chief Complaint n184 To Go Over Vmap From 03/04/2023 e55.9 N18.9 D63.1 ESRD N18.4 ESRD Renal 2 Month Follow Up n18.9 d63.1 Needs Stitches Removed n18.9 d63.1 Anemia.. AnemiaReason for VisitChronic renal insufficiency, stage IV (severe) Anemia Chief Complaint ESRD N18.4 ESRD Renal 2 Month Follow Up n18.9 d63.1 Needs Stitches Removed n18.9 d63.1 Anemia Anemia Anemia..Reason for VisitChronic renal insufficiency, stage IV (severe) Anemia Chief Complaint ESRD N18.4 ESRD Renal 2 Month Follow Up n18.9 d63.1 Needs Stitches Removed n18.9 d63.1 Anemia Anemia Anemia.. GFS LT ARMReason for VisitChronic renal insufficiency, stage IV (severe) Anemia Chief Complaint ESRD N18.4 ESRD Renal 2 Month Follow Up n18.9 d63.1 Needs Stitches Removed n18.9 d63.1 Anemia Anemia E11.9 Z12.5 GFS LT ARM Anemia.. n18.6Reason for VisitChronic renal insufficiency, stage IV (severe) Encounter regarding vascular access for dialysis for end-stage renal disease Hemodialysis access, AV graft Anemia Chief Complaint N18.4 ESRD Renal 2 Month Follow Up n18.9 d63.1 Needs Stitches Removed n18.9 d63.1 Anemia Anemia E11.9 Z12.5 GFS LT ARM n18.6 ESRD Anemia..Reason for VisitChronic renal insufficiency, stage IV (severe) Encounter regarding vascular access for dialysis for end-stage renal disease Hemodialysis access, AV graft Anemia Chief Complaint ESRD Renal 2 Month Follow Up n18.9 d63.1 Needs Stitches Removed n18.9 d63.1 Anemia Anemia E11.9 Z12.5 GFS LT ARM n18.6 ESRD Anemia.. RENAL F/UReason for VisitChronic renal insufficiency, stage IV (severe) Encounter regarding vascular access for dialysis for end-stage renal disease Hemodialysis access, AV graft Anemia Anemia of renal disease Chronic kidney disease, stage V Hydronephrosis Hyperkalemia [id number] Chief Complaint n18.9 d63.1 Needs Stitches Removed n18.9 d63.1 Anemia Anemia E11.9 Z12.5 GFS LT ARM ESRD Anemia.. RENAL F/UReason for VisitEncounter regarding vascular access for dialysis for end-stage renal disease Hemodialysis access, AV graft Anemia Anemia of renal disease Chronic kidney disease, stage V Hydronephrosis Hyperkalemia [id number] Chief Complaint Needs Stitches Remov ed n18.9 d63.1 Anemia Anemia E11.9 Z12.5 GFS LT ARM ESRD RENAL F/U D64.9 N18.30 D63.1 Anemia.. To go over Fistulogram resultsReason for VisitEncounter regarding vascular access for dialysis for end-stage renal disease Hemodialysis access, AV graft Anemia of renal disease Chronic kidney disease, stage V Hydronephrosis Hyperkalemia [id number] Anemia Chief Complaint Needs Stitches Remov ed n18.9 d63.1 Anemia Anemia E11.9 Z12.5 GFS LT ARM ESRD ESRD RENAL F/U D64.9 N18.30 D63.1 Anemia.. To go over Fistulogram resultsReason for VisitEncounter regarding vascular access for dialysis for end-stage renal disease Hemodialysis access, AV graft Anemia of renal disease Chronic kidney disease, stage V Hydronephrosis Hyperkalemia [id number] Anemia Chief Complaint Needs Stitches Remov ed n18.9 d63.1 Anemia Anemia E11.9 Z12.5 GFS LT ARM ESRD ESRD RENAL F/U D64.9 N18.30 D63.1 Anemia.. To go over Fistulogram results STARTED ACCESS ARM AND IS SWELLINGReason for VisitEncounter regarding vascular access for dialysis for end-stage renal disease Hemodialysis access, AV graft Anemia of renal disease Chronic kidney disease, stage V Hydronephrosis Hyperkalemia [id number] Anemia Anemia Anemia of renal disease Hemodialysis access, AV graft Chief Complaint Needs Stitches Remov ed n18.9 d63.1 Anemia Anemia E11.9 Z12.5 GFS LT ARM ESRD ESRD RENAL F/U D64.9 N18.30 D63.1 Anemia.. To go over Fistulogram results STARTED ACCESS ARM AND IS SWELLING ESRDReason for VisitEncounter regarding vascular access for dialysis for end- stage renal disease Hemodialysis access, AV graft Anemia of renal disease Chronic kidney disease, stage V Hydronephrosis Hyperkalemia [id number] Anemia Anemia Anemia of renal disease Hemodialysis access, AV graft AV fistula End-stage renal disease on hemodialysis Chief Complaint Anemia Anemia E11.9 Z12.5 GFS LT ARM ESRD ESRD RENAL F/U D64.9 N18.30 D63.1 Anemia.. To go over Fistulogram results STARTED ACCESS ARM AND IS SWELLING ESRDReason for VisitEncounter regarding vascular access for dialysis for end- stage renal disease Hemodialysis access, AV graft Anemia of renal disease Chronic kidney disease, stage V Hydronephrosis Hyperkalemia [id number] Anemia Anemia Anemia of renal disease Hemodialysis access, AV graft AV fistula End-stage renal disease on hemodialysis Chief Complaint E11.9 Z12.5 GFS LT ARM ESRD ESRD RENAL F/U D64.9 N18.30 D63.1 Anemia.. To go over Fistulogram results STARTED ACCESS ARM AND IS SWELLING ESRD E87.6 ESRD RE CHECK FISTULA TO START USING AGAINReason for VisitEncounter regarding vascular access for dialysis for end-stage renal disease Hemodialysis access, AV graft Anemia of renal disease Chronic kidney disease, stage V Hydronephrosis Hyperkalemia [id number] Anemia Anemia Anemia of renal disease Hemodialysis access, AV graft AV fistula End-stage renal disease on hemodialysis Chief Complaint STARTED ACCESS ARM A ND IS SWELLING ESRD E87.6 ESRD RE CHECK FISTULA TO START USING AGAIN MAY D/C HD CATH; ABN GILDA'SReason for VisitAV fistula End-stage renal disease on hemodialysis AV fistula End-stage renal disease on hemodialysis End-stage renal disease on hemodialysis PAD (peripheral artery disease) Chief Complaint STARTED ACCESS ARM A ND IS SWELLING ESRD E87.6 ESRD RE CHECK FISTULA TO START USING AGAIN MAY D/C HD CATH; ABN GILDA'S ESRD, PVD w/ Non Healing Wound ESRD, PVD w/ Non Healing WoundReason for VisitAV fistula End-stage renal disease on hemodialysis AV fistula End-stage renal disease on hemodialysis End-stage renal disease on hemodialysis PAD (peripheral artery disease) Chief Complaint ESRD RE CHECK FISTULA TO START USING AGAIN MAY D/C HD CATH; ABN GILDA'S ESRD, PVD w/ Non Healing Wound ESRD, PVD w/ Non Healing Wound E87.5Reason for VisitAV fistula End-stage renal disease on hemodialysis End-stage renal disease on hemodialysis PAD (peripheral artery disease) Chief Complaint ESRD RE CHECK FISTULA TO START USING AGAIN MAY D/C HD CATH; ABN GILDA'S ESRD, PVD w/ Non Healing Wound ESRD, PVD w/ Non Healing Wound E87.5 2 WK SURGERY F/UReason for VisitAV fistula End-stage renal disease on hemodialysis End-stage renal disease on hemodialysis PAD (peripheral artery disease) Chief Complaint ESRD RE CHECK FISTULA TO START USING AGAIN MAY D/C HD CATH; ABN GILDA'S ESRD, PVD w/ Non Healing Wound ESRD, PVD w/ Non Healing Wound E87.5 2 WK SURGERY F/U 3 WK WOUND CHECK/D/C HD CATHReason for VisitAV fistula End-stage renal disease on hemodialysis End-stage renal disease on hemodialysis PAD (peripheral artery disease) End-stage renal disease on hemodialysis Hemodialysis access, AV graft Wound of right foot Chief Complaint AUGUST D/C HD CATH; ABN GILDA'S ESRD, PVD w/ Non Healing Wound ESRD, PVD w/ Non Healing Wound E87.5 2 WK SURGERY F/U 3 WK WOUND CHECK/D/C HD CATH e87.6Reason for VisitEnd-stage renal disease on hemodialysis PAD (peripheral artery disease) End-stage renal disease on hemodialysis Hemodialysis access, AV graft Wound of right foot End-stage renal disease on hemodialysis Chief Complaint AUGUST D/C HD CATH; ABN GILDA'S ESRD, PVD w/ Non Healing Wound ESRD, PVD w/ Non Healing Wound E87.5 2 WK SURGERY F/U 3 WK WOUND CHECK/D/C HD CATH e87.6 E11.9 E55.9Reason for VisitEnd-stage renal disease on hemodialysis PAD (peripheral artery disease) End-stage renal disease on hemodialysis Hemodialysis access, AV graft Wound of right foot End-stage renal disease on hemodialysis Chief Complaint ESRD, PVD w/ Non Hea ling Wound ESRD, PVD w/ Non Healing Wound E87.5 2 WK SURGERY F/U 3 WK WOUND CHECK/D/C HD CATH e87.6 E11.9 E55.9 UnknownReason for VisitEnd-stage renal disease on hemodialysis Hemodialysis access, AV graft Wound of right foot End-stage renal disease on hemodialysis Chief Complaint E87.5 2 WK SURGERY F/U 3 WK WOUND CHECK/D/C HD CATH e87.6 E11.9 E55.9 Unknown ESRD ESRDReason for VisitEnd-stage renal disease on hemodialysis Hemodialysis access, AV graft Wound of right foot End-stage renal disease on hemodialysis Dialysis AV fistula malfunction Chief Complaint Admit Date Unknown August 03, 2024 9:3 6am Chief Complaint Admit Date Unknown August 03, 2024 9:3 6am Ill September 09, 2024 5:11p m Chief Complaint Admit Date Unknown August 03, 2024 9:3 6am Ill September 09, 2024 5:11p m Altered / Change Mental Status September 10, 2024 9:19pm Reason for Visit Admit Date Elevated troponin I level September 10, 2024 9:19pm End-stage renal disease on hemodialysis September 10, 2024 9:19pm Nausea September 10, 2024 9:19p m Diabetic foot ulcer September 10, 2024 9:19p m Chief Complaint Admit Date Unknown August 03, 2024 9:3 6am Ill September 09, 2024 5:11p m Altered / Change Mental Status September 10, 2024 9:19pm Altered / Change Mental Status September 11, 2024 10:56am Altered / Change Mental Status September 13, 2024 9:31am Reason for Visit Admit Date Anemia of renal disease September 10, 2024 9 :19pm Elevated troponin I level September 10, 2024 9:19pm End-stage renal disease on hemodialysis September 10, 2024 9:19pm ESRD (end stage renal disease) on dialys is September 10, 2024 9:19pm Foot drop, right September 10, 2024 9:19p m Hypertensive chronic kidney disease with stage 5 chronic kidney disease or September 10, 2024 9:19pm Nausea September 10, 2024 9:19p m PAD (peripheral artery disease) September 9:19pm Type 2 diabetes mellitus with diabetic c hronic kidney disease September 10, 2024 9:19pm Type 2 diabetes mellitus with foot ulcer September 10, 2024 9:19pm Type 2 diabetes mellitus with peripheral neuropathy September 10, 2024 9:19pm Wound of foot September 10, 2024 9:19p m Diabetic foot ulcer September 10, 2024 9:19p m Chief Complaint Admit Date Unknown August 03, 2024 9:3 6am Ill September 09, 2024 5:11p m Altered / Change Mental Status September 10, 2024 9:19pm Altered / Change Mental Status September 11, 2024 10:56am Altered / Change Mental Status September 13, 2024 9:31am fall September 15, 2024 10:2 7pm Chief Complaint Admit Date Unknown August 03, [...] right foot October 07, 2024 12:29 pm Reason for Visit Admit Date ESRD (end [...] left foot September 22, 2024 3:09 pm Chief Complaint Admit Date Unknown August 03, [...] m ESRD October 12, 2024 1:55p m Reason for Visit Admit Date ESRD (end [...] renal disease October 12, 2024 1 :55pm Chief Complaint Admit Date Unknown August 03, [...] cath insert October 15, 2024 5:2 7am Chief Complaint Admit Date Ill September 09, 2024 5:11p m Altered [...] 7am E87.6 November 12, 2024 11: 47am Chief Complaint Admit Date Ill September 09, 2024 5:11p m Altered [...] 7am E87.6 November 12, 2024 11: 47am EVAL FOR NEW ACCESS; V MAP 12P December 07, 2024 11:15am Chief Complaint Admit Date lac to right foot October 07, 2024 12:29 pm hyperkalemia October 11, 2024 12:20 pm ESRD October 12, 2024 1:54p m ESRD October 12, 2024 1:55p m Dialysis cath insert October 15, 2024 5:2 7am E87.6 November 12, 2024 11: 47am Hyperkalemia December 06, 2024 11:50am EVAL FOR NEW ACCESS; V MAP [facility] December 07, 2024 11:15am GO OVER VEIN MAPPING DONE 12/07/24 IN [facility] January 04, 2025 9:16am Reason for Visit Admit Date Clotted renal dialysis AV graft October 1:55pm Diabetes October 12, 2024 1:55p m Dialysis AV fistula malfunction October 1:55pm ESRD (end stage renal disease) on dialys is October 12, 2024 1:55pm Secondary hyperparathyroidism October 12, 2024 1:55pm Anemia of renal disease October 12, 2024 1 :55pm Chief Complaint Admit Date Dialysis cath insert October 15, 2024 5:2 7am E87.6 November 12, 2024 11: 47am Hyperkalemia December 06, 2024 11:50am EVAL FOR NEW ACCESS; V MAP [facility] December 07, 2024 11:15am GO OVER VEIN MAPPING DONE 12/07/24 IN [facility] January 04, 2025 9:16am ESRD January 13, 2025 10 :25am Reason for Visit Admit Date End-stage renal disease on hemodialysis January 04, 2025 9:16am Chief Complaint Admit Date E87.6 November 12, 2024 11: 47am Hyperkalemia December 06, 2024 11:50am EVAL FOR NEW ACCESS; V MAP 12P December 07, 2024 11:15am GO OVER VEIN MAPPING DONE 12/07/24 IN [facility] January 04, 2025 9:16am ESRD January 13, 2025 10 :25am Family History Relationship Condition Age at Onset Recorded Date/T rd Not Specified Diabetes mellitus Unknown fatherDiabetes mellitusUnknownsisterDiabetes mellitusUnknownbrotherDiabetes mellitusUnknown Unknown Family Member Name Dates Details Family history of diabetes m ellitus: Mother, Brother(V18.0, Z83.3) Status:ActiveFamily history of dementia: Father(V17.2, Z81.8) Status:ActiveFamily history of glaucoma: Father(V19.11, Z83.511) Status:ActiveFamily history of cardiac pacemaker: Brother(V17.49, Z82.49) Status:ActiveFamily history of cardiac disorder: Brother(V17.49, Z82.49) Status:Active Unknown Family Member Name Dates Details Family history of diabetes m ellitus: Mother, Brother(V18.0, Z83.3) Status:ActiveFamily history of dementia: Father(V17.2, Z81.8) Status:ActiveFamily history of glaucoma: Father(V19.11, Z83.511) Status:ActiveFamily history of cardiac pacemaker: Brother(V17.49, Z82.49) Status:ActiveFamily history of cardiac disorder: Brother(V17.49, Z82.49) Status:Active Unknown Family Member Name Dates Details Family history of diabetes m ellitus: Mother, Brother(V18.0, Z83.3) Status:ActiveFamily history of dementia: Father(V17.2, Z81.8) Status:ActiveFamily history of glaucoma: Father(V19.11, Z83.511) Status:ActiveFamily history of cardiac pacemaker: Brother(V17.49, Z82.49) Status:ActiveFamily history of cardiac disorder: Brother(V17.49, Z82.49) Status:Active Unknown Family Member Name Dates Details Family history of cardiac di sorder: Brother(V17.49, Z82.49) Status:ActiveFamily history of cardiac pacemaker: Brother(V17.49, Z82.49) Status:ActiveFamily history of glaucoma: Father(V19.11, Z83.511) Status:ActiveFamily history of dementia: Father(V17.2, Z81.8) Status:ActiveFamily history of diabetes mellitus: Mother, Brother(V18.0, Z83.3) Status:Active Unknown Family Member Name Dates Details Family history of cardiac di sorder: Brother(V17.49, Z82.49) Status:ActiveFamily history of cardiac pacemaker: Brother(V17.49, Z82.49) Status:ActiveFamily history of glaucoma: Father(V19.11, Z83.511) Status:ActiveFamily history of dementia: Father(V17.2, Z81.8) Status:ActiveFamily history of diabetes mellitus: Mother, Brother(V18.0, Z83.3) Status:Active Unknown Family Member Name Dates Details Family history of diabetes m ellitus: Mother, Brother(V18.0, Z83.3) Status:ActiveFamily history of dementia: Father(V17.2, Z81.8) Status:ActiveFamily history of glaucoma: Father(V19.11, Z83.511) Status:ActiveFamily history of cardiac pacemaker: Brother(V17.49, Z82.49) Status:ActiveFamily history of cardiac disorder: Brother(V17.49, Z82.49) Status:Active Relationship Condition Age at Onset Recorded Date/T rd Not Specified Diabetes mellitus Unknown HypertensionUnknownDisorder of kidneyUnknownfatherDiabetes mellitusUnknownsister Diabetes mellitusUnknownbrotherDiabetes mellitusUnknown Relationship Condition Age at Onset Recorded Date/T rd Not Specified Diabetes mellitus Unknown HypertensionUnknownDisorder of kidneyUnknownfatherDiabetes mellitusUnknownsister Diabetes mellitusUnknownbrotherDiabetes mellitusUnknowndaughterFamily history of mental disorderUnknownHeart diseaseUnknownDeceasedUnknownNot Specified HypertensionUnknownDiabetes mellitusUnknown Relationship Condition Age at Onset Recorded Date/T rd mother Diabetes mellitus Unknown HypertensionUnknownDisorder of kidneyUnknownfatherDiabetes mellitusUnknownsister Diabetes mellitusUnknownbrotherDiabetes mellitusUnknowndaughterFamily history of mental disorderUnknownHeart diseaseUnknownDeceasedUnknownmotherHypertension UnknownDiabetes mellitusUnknown Relationship Condition Age at Onset Recorded Date/T rd mother Diabetes mellitus Unknown HypertensionUnknownDisorder of kidneyUnknownfatherDiabetes mellitusUnknownsister Diabetes mellitusUnknownbrotherDiabetes mellitusUnknowndaughterFamily history of mental disorderUnknownHeart diseaseUnknownDiabetes mellitusUnknownDeceased UnknownmotherHypertensionUnknown Advance Directives Advance Directive Response Recorded Date/ Time Advance Directives No December 9:45am Advance Directive Response Recorded Date/ Time Advance Directives No December 8:45am Reason for Referral Reason AVF creation Diagnosis 1 CKD (chronic kidney disease) stage 4, GFR 15-29 ml/min (N18.4) Diagnosis 2 AV fistula (I77.0) Referral Organization [facility] Nephrology Referring Provider First Name Essam Referring Provider Last Name Claudia Referring Provider Specialty Nephrology Referred Organization [facility] Vascular Surge ry Referred Provider Fawad Rocha Referred Address [address] [facility] [address],[place], [place],[address] Referred Provider Specialty Vascular Marcie gregory Referral Priority Routine General Notes iSnanMary Jo roy 02/13/2023 03:01:07 PM > VEIN MAPPING ORDER FAXED TO [facility] VASCULAR / [facility] SCHED Reason Left hydronephrosis Diagnosis 1 CKD (chronic kidney disease) stage 4, GFR 15-29 ml/min (N18.4) Referral Organization [facility] Nephrology Referring Provider First Name Ess Referring Provider Last Name Claudia Referring Provider Specialty Nephrology Referred Organization [facility] Referred Provider KIKO CORBETT Referred Address [address],[place], [place],[address] Referred Provider Specialty Urology Referral Priority Routine General Notes Faviola Khan M 022 02:32:20 PM >Received today. Referral has been fax and Dr. Corbett office will call and schedule patient Summary Purpose Additional Source Comments REASON FOR VISIT (unrecogniz ed section and content) ReasonCommentsRadiology Pre Procedure InstructionsReasonCommentsAppointment ReasonCommentsRadiology IRFollow up nephrostomy tube placementReasonOnset Date CommentsCare Coordinator - ED Follow Up07/17/2022ReasonOnset DateComments Returning Patient's Call07/24/2022ReasonCommentstube removal Care Teams (unrecognized sec tion and content) Team Status: Active Member Role Status Dates NON STAFF Primary Care Provider Active Team Status: Active Member Role Status Dates AGUSTINA QuigleyC Primary Care Provider Active Start: October 15, 2024 Rosibel Starr ProviderActiveStart: October 15, 2024 Soumya Starr ProviderActiveStart: October 15, 2024 Team Status: Active Member Role Status Dates Mervat Santiago [employer]OR-C Primary Care Provider Active Start: October 28, 2024 Amber Mejiaending ProviderActiveStart: October 28, 2024 Team Status: Inactive Member Role Status Dates Yisel Andrade MD Attending Provider Active Star t: November 12, 2024 End: November 12, 2024 Team Status: Active Member Role Status Dates NON STAFF Primary Care Provider Active Start: November 28, 2024 Rosibel Hadley ProviderActiveStart: November 28, 2024 Team Status: Inactive Member Role Status Dates Olga Lidia Martin MD Attending Provider Active Start : December 06, 2024 End: December 06, 2024 Team Status: Inactive Member Role Status Dates Fawad Rocha MD Attending Provider Active S tart: December 07, 2024 End: December 07, 2024NON STAFFPrimary Care ProviderActiveStart: December 07, 2024 End: December 07, 2024 Team Status: Inactive Member Role Status Dates NON STAFF Primary Care Provider Active Start: January 04, 2025 End: January 04, 2025Jailene Argueta NP-CAttending ProviderActiveStart: January 04, 2025 End: January 04, 2025 Team Status: Active Member Role Status Dates NON STAFF Primary Care Provider Active Start: January 13, 2025 Rosibel Starr ProviderActiveStart: January 13, 2025 Fawad Rocha MDOther ProviderActiveStart: January 13, 2025 Team Status: Inactive Member Role Status Dates Mervin Siddiqi DO Emergency Provider Active Start: September 09, 2024 End: September 10, 2024Mervat Santiago [employer] INSPECTOR-CPrimary Care ProviderActiveStart: September 09, 2024 End: September 10, 2024 Team Status: Inactive Member Role Status Dates Mervat Santiago [employer]OR-C Primary Care Provider Active Start: September 10, 2024 End: September 14, 2024GeDiana Noelrgency ProviderActiveStart: September 10, 2024 End: September 14Marlyn Alarcon ProviderActiveStart: September 10, 2024 End: September 14, 2024Rosibel Garrison ProviderActiveStart: September 10, 2024 End: September 14Soumya Xiao ProviderActiveStart: September 10, 2024 End: September 14, 2024Jalen Santillan ProviderActiveStart: September 10, 2024 End: September 14, 2024Soumya Naylor ProviderActiveStart: September 10, 2024 End: September 14, 2024 Team Status: Active Member Role Status Dates Mervat Santiago , [employer] INSPECTOR-C Primary Care Provider Active Start: September 11, 2024 Shelby Siddiqui ProviderActiveStart: September 11, 2024 Marlyn Combs ProviderActiveStart: September 11, 2024 Soumya Garrison ProviderActiveStart: September 11, 2024 Rosibel Hadley ProviderActiveStart: September 11, 2024 Soumya Hadley ProviderActiveStart: September 11, 2024 Jalen Santillan ProviderActiveStart: September 11, 2024 Team Status: Active Member Role Status Dates Mervat Santiago [employer] INSPECTOR-C Primary Care Provider Active Start: September 13, 2024 Shelby Siddiqui ProviderActiveStart: September 13, 2024 Marlyn Combs ProviderActiveStart: September 13, 2024 Soumya Garrison ProviderActiveStart: September 13, 2024 Soumya Hadley ProviderActiveStart: September 13, 2024 Jalen Santillan ProviderActiveStart: September 13, 2024 Rosibel Naylor ProviderActiveStart: September 13, 2024 Soumya Naylor ProviderActiveStart: September 13, 2024 Team Status: Inactive Member Role Status Dates Pedro Drake MD Emergency Provider Active Star t: September 15, 2024 End: September 16, 2024Mervat Santiago , [employer] INSPECTOR-CPrimary Care ProviderActiveStart: September 15, 2024 End: September 16, 2024 Team Status: Active Member Role Status Dates Mervat Santiago , [employer] INSPECTOR-C Primary Care Provider Active Start: September 22, 2024 Minnie Foote DOEmergenmarvin ProviderActiveStart: September 22, 2024 Riya Sampson DOAdmit ProviderActiveStart: September 22, 2024 Ryia Sampson DOOther ProviderActiveStart: September 22, 2024 Yisel Andrade MDAttending ProviderActiveStart: September 22, 2024 Yisel Andrade MDOther ProviderActiveStart: September 22, 2024 Jaylin Drake DPMOther ProviderActiveStart: September 22, 2024 Team Status: Active Member Role Status Dates Mervat Santiaog , [employer] INSPECTOR-C Primary Care Provider Active Start: October 01, 2024 Olga Lidia Martin MDAttending ProviderActiveStart: October 01, 2024 Team Status: Inactive Member Role Status Dates Mervat Santiago , [employer]OR-C Primary Care Provider Active Start: October 07, 2024 End: October 07, 2024Jon Guerrero MDEmergency ProviderActiveStart: October 07, 2024 End: October 07, 2024 Team Status: Inactive Member Role Status Dates Johan Taylor MD Attending Provider Active Star t: October 11, 2024 End: October 11, 2024 Team Status: Active Member Role Status Dates Fawad Rocha MD Attending Provider Active S tart: October 12, 2024 Fawad Rocha MDOther ProviderActiveStart: October 12, 2024 Mervat Santiago , [employer] INSPECTOR-CPrimary Care ProviderActiveStart: October 12, 2024 Team Status: Active Member Role Status Dates Fawad Rocha MD Admit Provider Active Start : October 12, 2024 Fawad Rocha MDOther ProviderActiveStart: October 12, 2024 Mervat Santiago , [employer] INSPECTOR-CPrimary Care ProviderActiveStart: October 12, 2024 Niru Abdi , VIOLETOther ProviderActiveStart: October 12, 2024 Inge Dahl , VIOLETOther ProviderActiveStart: October 12, 2024 Mony Callaway , VIOLETOther ProviderActiveStart: October 12, 2024 Theodora Garcias , VIOLETOther ProviderActiveStart: October 12, 2024 Jami Gómez , VIOLETOther ProviderActiveStart: October 12, 2024 Edna Bella , VIOLETOther ProviderActiveStart: October 12, 2024 Emelyn Cabral MDOther ProviderActiveStart: October 12, 2024 Allegra Reyes , DOOther ProviderActiveStart: October 12, 2024 Jose Mascorro MDOther ProviderActiveStart: October 12, 2024 Chris Mccarthy , DOOther ProviderActiveStart: October 12, 2024 Thad Roach MDOther ProviderActiveStart: October 12, 2024 Rosy Kan MDOther ProviderActiveStart: October 12, 2024 Riya Up DOOther ProviderActiveStart: October 12, 2024 Rohit Dye MDOther ProviderActiveStart: October 12, 2024 Sara Pantoja , APRNOther ProviderActiveStart: October 12, 2024 Audi Gordon MDOther ProviderActiveStart: October 12, 2024 Mariano Martinez MDOther ProviderActiveStart: October 12, 2024 Niranjan Santos MDOther ProviderActiveStart: October 12, 2024 Deric Connors MDOther ProviderActiveStart: October 12, 2024 Riya Sampson DOOther ProviderActiveStart: October 12, 2024 Agustin Avilez MDOther ProviderActiveStart: October 12, 2024 Anant Handy MDOther ProviderActiveStart: October 12, 2024 Elisabet Soni NP-COther ProviderActiveStart: October 12, 2024 Sorin Vaughn , APRNOther ProviderActiveStart: October 12, 2024 Landon Grullon MDOther ProviderActiveStart: October 12, 2024 Balbir Cam MDOther ProviderActiveStart: October 12, 2024 Aric Velásquez MDOther ProviderActiveStart: October 12, 2024 Yovani Mcallister MDOther ProviderActiveStart: October 12, 2024 Kevin Steinberg MDOther ProviderActiveStart: October 12, 2024 Cecilia Tolliver DOOther ProviderActiveStart: October 12, 2024 Xavi Valencia , DOOther ProviderActiveStart: October 12, 2024 Annika Kan , APRNOther ProviderActiveStart: October 12, 2024 Deo Bernabe , DOOther ProviderActiveStart: October 12, 2024 Julian Jones MDOther ProviderActiveStart: October 12, 2024 Makenzie Drake , APRNOther ProviderActiveStart: October 12, 2024 Carissa Huntley , APRNOther ProviderActiveStart: October 12, 2024 Ct Singh MDOther ProviderActiveStart: October 12, 2024 Ronald Espinal MDOther ProviderActiveStart: October 12, 2024 Zane Zamora , DOOther ProviderActiveStart: October 12, 2024 Sabino Mederos , DOOther ProviderActiveStart: October 12, 2024 Jamari Velásquez MDOther ProviderActiveStart: October 12, 2024 Slick Lawrence MDOther ProviderActiveStart: October 12, 2024 Suzanne Dave , APRNOther ProviderActiveStart: October 12, 2024 Charito Ferguson MDOther ProviderActiveStart: October 12, 2024 Nick Wayne MDOther ProviderActiveStart: October 12, 2024 Favio Augustine MDOther ProviderActiveStart: October 12, 2024 Rohit Goldsmith MDOther ProviderActiveStart: October 12, 2024 Nikolai Leonard MDOther ProviderActiveStart: October 12, 2024 Elayne Robins , APRNOther ProviderActiveStart: October 12, 2024 Amilcar Mckeon , APRNOther ProviderActiveStart: October 12, 2024 Lata Chapa RNOther ProviderActiveStart: October 12, 2024 Rosibel Colby ProviderActiveStart: October 12, 2024 Johan Taylor MDOther ProviderActiveStart: October 12, 2024 Team Status: Active Member Role Status Dates Mervat Santiago PRINT LINE INSPECTOR-C Primary Care Provider Active Team Status: Active Member Role Status Dates Mervat Santiago PRINT LINE INSPECTOR-C Primary Care Provider Active Start: June 28, 2024 Rosibel Hadley ProviderActiveStart: June 28, 2024 Team Status: Active Member Role Status Dates Johan Taylor MD Attending Provider Active Star t: July 29, 2024 Team Status: Inactive Member Role Status Dates Katlin Castellanos PA-C Attending Provider Active Start: August 03, 2024 End: August 03, 2024 Team Status: Inactive Member Role Status Dates PHYSICIAN NO FAMILY Primary Care Provider Active Start: October 21, 2023 End: October 21, 2023Fawad Rocha MDAttending ProviderActiveStart: October 21, 2023 End: October 21, 2023 Team Status: Inactive Member Role Status Dates PHYSICIAN NO FAMILY Primary Care Provider Active Start: October 28, 2023 End: October 28, 2023Fawad Rocha MDAttending ProviderActiveStart: October 28, 2023 End: October 28, 2023 Team Status: Active Member Role Status Dates PHYSICIAN NO FAMILY Primary Care Provider Active Start: October 28, 2023 Rosibel Starr Provider, Other ProviderActiveStart: October 28, 2023 Team Status: Active Member Role Status Dates PHYSICIAN NO FAMILY Primary Care Provider Active Start: October 29, 2023 Amber Colbyending ProviderActiveStart: October 29, 2023 Team Status: Inactive Member Role Status Dates PHYSICIAN NO FAMILY Primary Care Provider Active Start: November 07, 2023 End: November 06elizabet Andrade MDAttending ProviderActiveStart: November 07, 2023 End: November 07, 2023 Team Status: Inactive Member Role Status Dates PHYSICIAN NO FAMILY Primary Care Provider Active Start: November 11, 2023 End: November 11, 2023Jailene Castorena NP-Noy ProviderActiveStart: November 11, 2023 End: November 11, 2023 Team Status: Active Member Role Status Dates PHYSICIAN NO FAMILY Primary Care Provider Active Start: December 01, 2023 Olga Lidia Martin MDAttending ProviderActiveStart: December 01, 2023 Team Status: Inactive Member Role Status Dates PHYSICIAN NO FAMILY Primary Care Provider Active Start: December 02, 2023 End: December 02, 2023Fawad Rocha MDAttending ProviderActiveStart: December 02, 2023 End: December 02, 2023 Team Status: Inactive Member Role Status Dates Olga Lidia Martin MD Attending Provider Active Start : December 26, 2023 End: December 26, 2023 Team Status: Inactive Member Role Status Dates Mervat Santiago PRINT LINE INSPECTOR-C Primary Care Provi tonya, Attending Provider Active Start: December 30, 2023 End: December 30, 2023 Team Status: Active Member Role Status Dates PHYSICIAN NO FAMILY Primary Care Provider Active Team Status: Active Member Role Status Dates PHYSICIAN NO FAMILY Primary Care Provider Active Start: July 30, 2023 Rosibel Hadley ProviderActiveStart: July 30, 2023 Team Status: Inactive Member Role Status Dates PHYSICIAN NO FAMILY Primary Care Provider Active Start: August 05, 2023 End: August 05, 2023Rosibel Starr ProviderActiveStart: August 05, 2023 End: August 05, 2023 Team Status: Inactive Member Role Status Dates PHYSICIAN NO FAMILY Primary Care Provider Active Start: August 05, 2023 End: August 05, 2023Rosibel Correa ProviderActiveStart: August 05, 2023 End: August 05, 2023 Team Status: Inactive Member Role Status Dates Olga Lidia Martin MD Attending Provider Active Start : August 08, 2023 End: August 07HYSICIAN NO FAMILYPrimary Care ProviderActiveStart: August 08, 2023 End: August 08, 2023 Team Status: Active Member Role Status Dates PHYSICIAN NO FAMILY Primary Care Provider Active Start: September 01, 2023 Rosibel Colby ProviderActiveStart: September 01, 2023 Team Status: Active Member Role Status Dates PHYSICIAN NO FAMILY Primary Care Provider Active Start: September 05, 2023 Rosibel Correa Provider, Other ProviderActiveStart: September 05, 2023 Team Status: Inactive Member Role Status Dates PHYSICIAN NO FAMILY Primary Care Provider Active Start: September 09, 2023 End: September 09, 2023Rosibel Starr ProviderActiveStart: September 09, 2023 End: September 09, 2023 Team Status: Active Member Role Status Dates Mervat Santiago PRINT LINE INSPECTOR-C Primary Care Provider, Referring Provider Active Mario Monte II, DOAttending ProviderActive Team Status: Inactive Member Role Status Dates Services [facility] Primary Care Provider Ac tive Jose M Landry II, DOAttending ProviderActive Team Status: Inactive Member Role Status Dates Johan Taylor MD Attending Provider Active NON STAFFPrimary Care ProviderActive Team Status: Inactive Member Role Status Dates Jose M Rosalie Landry II, DO Attending Provider Active Team Status: Inactive Member Role Status Dates Mervat Santiago , PRINT LINE INSPECTOR-C Attending Provider Active [facility] ProviderActive Team Status: Inactive Member Role Status Dates Services [facility] Primary Care Provider Ac tive Mervat Santiago , PRINT LINE INSPECTOR-CAttending ProviderActive Team Status: Inactive Member Role Status Dates Maddie Dixon APRN Attending Provider Acti ve Team Status: Inactive Member Role Status Dates Johan Taylor MD Attending Provider Active Team Status: Active Member Role Status Dates Maye Murray , DO Primary Care Provider Active Team Status: Inactive Member Role Status Dates Maye Murray , DO Primary Care Provider Active Rosibel Blue ProviderActive Team Status: Inactive Member Role Status Dates Maye Murray , DO Primary Care Provider, Attending P luanne Active Team Status: Inactive Member Role Status Dates Maye Murray , DO Primary Care Provider Active Shelby Luu ProviderActive Team Status: Inactive Member Role Status Ivan Springer , Emergency Provider Active Maye Murray , DOPriwiregrass [facility] centery Care ProviderActiveChris Mccarthy , DOAdmit ProviderActiveJohan Taylor MDOther ProviderActiveOlga Lidia Martin MDOther ProviderActiveJose Escobar MDOther ProviderActiveManoj Frank MD Other ProviderActiveChristofer Persaud MDOther ProviderActiveYisel Andrade MDOther ProviderActivePatriccristel Turpin , LPNOther ProviderActiveJessica Lua LPN Other ProviderActiveFawad Rocha MDOther ProviderActiveJailene Castorena , PRINT LINE INSPECTOR-COther ProviderActiveMoprincess Gandhi MDOther ProviderActiveMaster Mauricio MDOther ProviderActiveDinrosendo Ochoa , DPMOther ProviderActiveFrederick E Doamekpor , MDAttending ProviderActiveKiko Corbett MDOther ProviderActive Team Status: Inactive Member Role Status Dates Former[facility] Primary Care Provider Ac tive Bhakti Ochoa , Tammie ProviderActive Team Status: Inactive Member Role Status Dates Mayejennifer Murray , DO Primary Care Provider Active Rosibel Lucas ProviderActiveW Laurent Renee Provider ActiveTeam MemberRelationshipSpecialtyStart DateEnd Date Bunting, Maye Ray, DO [address] [place] [address] PCP - [facility]05/06/22 Team Status: Inactive Member Role Status Dates Mayejennifer Murray , DO Primary Care Provider Active Sonal Márquez Jr, MDEmercy ProviderActiveTeam MemberRelationshipSpecialty Start DateEnd Date Bunting, Maye Ray, DO [address] [place] [address] PCP - [facility]05/06/22Team MemberRelationshipSpecialtyStart DateEnd Date Bunting, Maye Ray, DO [address] [place] [address] PCP - [facility]05/06/22 Team Status: Active Member Role Status Dates Mervat Santiago , PRINT LINE INSPECTOR-C Primary Care Provider Active Shelby Londono ProviderActiveAnoMarquis , MDAdmit Provider, Attending ProviderActiveJohan Taylor MDOther ProviderActiveFawad Rocha MDOther ProviderActive Team Status: Inactive Member Role Status Dates Maye Murray , Primary Care Provider Active Mervat Santiago , PRINT LINE INSPECTOR-CAttending ProviderActive Team Status: Inactive Member Role Status Dates Mervat Santiago , PRINT LINE INSPECTOR-C Primary Care Provider Active Shelby Garcia ProviderActive Team Status: Inactive Member Role Status Dates Mervat Santiago , PRINT LINE INSPECTOR-C Primary Care Provider Active Jemima Martinez ProviderActiveFrederdanielle E Mitchel , MDAdmit ProviderActiveRiya Pitt MDOther ProviderActiveYisel Andrade MDOther ProviderActiveBhakti Ochoa DPMOther ProviderActiveObasb Coronar , MD Attending ProviderActiveSj Barron MDOther ProviderActiveTeam Member RelationshipSpecialtyStart DateEnd Date Maye Murray, DO [address] [place] [address] [facility] Team Status: Inactive Member Role Status Dates Mervat Santiago , PRINT LINE INSPECTOR-C Primary Care Provider Active Serafin Pearson DOEmesalinas ProviderActiveAnoMarquis MDAdmit Provider, Attending ProviderActiveRyia Pitt MDOther ProviderActiveJohan Taylor MD Other ProviderActiveLLOYD LaureanoMOther ProviderActiveFawad Rocha MD Other ProviderActive Team Status: Inactive Member Role Status Amparo Santiago , PRINT LINE INSPECTOR-C Primary Care Provider Active Rosibel Naylor ProviderActive Team Status: Inactive Member Role Status Dates Mervat Santiago , PRINT LINE INSPECTOR-C Primary Care Provider, Attending Provider Active Team Status: Inactive Member Role Status Dates Mervat Santiago , PRINT LINE INSPECTOR-C Primary Care Provider Active Pedro Drake MDEmergency ProviderActive Team Status: Inactive Member Role Status Amparo Santiago , PRINT LINE INSPECTOR-C Primary Care Provider Active Alessio Longo ProviderActive Team Status: Active Member Role Status Amparo Santiago , PRINT LINE INSPECTOR-C Primary Care Provider Active Alessio Longo ProviderActiveMichael Frings , DOAdmit Provider, Attending ProviderActive Team Status: Inactive Member Role Status Amparo Santiago , PRINT LINE INSPECTOR-C Primary Care Provider Active Alessio Longo ProviderActiveMichael Frings , DOAdmit Provider, Attending ProviderActiveRiya Pitt MDOther ProviderActive Team Status: Inactive Member Role Status Amparo Santiago , PRINT LINE INSPECTOR-C Primary Care Provider Active Jose M Landry II, DOAttending ProviderActive Team Status: Inactive Member Role Status Amparo Santiago , PRINT LINE INSPECTOR-C Attending Provider Active Team Status: Active Member Role Status Dates Formerly [facility] Primary Care Provider Ac tive Team Status: Inactive Member Role Status Amparo Rocha MD Attending Provider Active Mervat Santiago , PRINT LINE INSPECTOR-CPrimary Care ProviderActive Team Status: Inactive Member Role Status Dates Mervat Santiago , PRINT LINE INSPECTOR-C Primary Care Provider Active Rosibel Colby ProviderActive Team Status: Inactive Member Role Status Dates Johan Taylor MD Attending Provider Active Star t: February 13, 2023 End: February 13, 2023 Team Status: Inactive Member Role Status Dates Johan Taylor MD Attending Provider Active Star t: March 04, 2023 End: March 04, 2023NON STAFFPrimary Care ProviderActiveStart: March 04, 2023 End: March 04, 2023 Team Status: Inactive Member Role Status Dates Fawad Rocha MD Attending Provider Active S tart: March 11, 2023 End: March 11, 2023 Team Status: Inactive Member Role Status Dates Mervat Santiago , PRINT LINE INSPECTOR-C Attending Provider Active Start: March 13, 2023 End: March 13, 2023 Team Status: Inactive Member Role Status Dates Jose M Landry II, DO Attending Provider Active Start: March 19, 2023 End: March 19, 2023 Team Status: Inactive Member Role Status Dates Fawad Rocha MD Attending Provider Active S tart: April 02, 2023 End: April 02, 2023Savannahura Ellen Santiago , PRINT LINE INSPECTOR-CPrimary Care ProviderActiveStart: April 02, 2023 End: April 02, 2023 Team Status: Inactive Member Role Status Dates Mervat Santiago , PRINT LINE INSPECTOR-C Primary Care Provider Active Start: April 07, 2023 End: April 07, 2023Rosibel Colby ProviderActiveStart: April 07, 2023 End: April 07, 2023 Team Status: Inactive Member Role Status Dates Fawad Rocha MD Attending Provider Active S tart: April 16, 2023 End: April 16, 2023Mervat Santiago , PRINT LINE INSPECTOR-CPrimary Care ProviderActiveStart: April 16, 2023 End: April 16, 2023 Team Status: Inactive Member Role Status Dates Johan Taylor MD Attending Provider Active Star t: April 17, 2023 End: April 17, 2023 Team Status: Inactive Member Role Status Dates Jose M Landry II, DO Attending Provider Active Start: April 22, 2023 End: April 22, 2023 Team Status: Active Member Role Status Dates Mervat Santiago PRINT LINE INSPECTOR-C Primary Care Provi tonya, Referring Provider Active Start: April 28, 2023 Pito Miguel MDActiveStart: April 28, 2023 Jose M Landry II, DOAttending ProviderActiveStart: April 28, 2023 Team Status: Inactive Member Role Status Dates Jose M Landry II, DO Attending Provider Active Start: May 08, 2023 End: May 08, 2023 Team Status: Inactive Member Role Status Dates Master Mauricio MD Attending Provider Active Start: May 08, 2023 End: May 08, 2023 Team Status: Active Member Role Status Dates Mervat Santiago PRINT LINE INSPECTOR-C Referring Provider Active Start: May 13, 2023 Jose M Landry II, DOAttending ProviderActiveStart: May 13, 2023 Services [facility] Care ProviderActiveStart: May 13, 2023 Team Status: Inactive Member [...] Active Member Role Status Dates Mervat Santiago PRINT LINE INSPECTOR-C Referring Provider Active Start: June 09, 2023 Jose M Landry II, DOAttending ProviderActiveStart: June 09, 2023 Services [facility] Care ProviderActiveStart: June 09, 2023 Team Status: Inactive Member Role Status Dates [facility] Primary Care Provider Active Start: June 19, 2023 End: June 19, 2023Mervat Sanitago , PRINT LINE INSPECTOR-CAttending ProviderActiveStart: June 19, 2023 End: June 19, 2023 Team Status: Inactive Member Role Status Dates Fawad Rocha MD Attending Provider Active S tart: June 24, 2023 End: June 24, [facility] ProviderActiveStart: June 24, 2023 End: June 24, 2023 Team Status: Active Member Role Status Dates Mervat Santiago PRINT LINE INSPECTOR-C Referring Provider Active Start: June 24, 2023 Jose M Landry II, DOAttending ProviderActiveStart: June 24, 2023 [facility] ProviderActiveStart: June 24, 2023 Team Status: Inactive Member Role Status Dates Services [facility] Primary Care Provider Active Start: June 24, 2023 End: June 24, 2023Amber Starrending ProviderActiveStart: June 24, 2023 End: June 24, 2023 Team Status: Inactive Member Role Status Dates Services [facility] Primary Care Provider Active Start: July 03, 2023 End: July 03, 2023Amber Starrending ProviderActiveStart: July 03, 2023 End: July 03, 2023 Team Status: Active Member Role Status Dates Mervat Santigao PRINT LINE INSPECTOR-C Referring Provider Active Start: July 03, 2023 Jose M Landry II, DOAttending ProviderActiveStart: July 03, 2023 Services [facility] Care ProviderActiveStart: July 03, 2023 Team Status: Active Member Role Status Dates Mervat Santiago PRINT LINE INSPECTOR-C Referring Provider Active Start: July 07, 2023 Jose M Landry II, DOAttending ProviderActiveStart: July 07, 2023 Services [facility] Care ProviderActiveStart: July 07, 2023 Team Status: Inactive Member Role Status Dates Services [facility] Primary Care Provider Active Start: July 10, 2023 End: July 10, 2023Rosibel Colby ProviderActiveStart: July 10, 2023 End: July 10, 2023 Team Status: Inactive Member Role Status Dates Olga Lidia Martin MD Attending Provider Active Start : July 15, 2023 End: July 15, 2023 Team Status: Inactive Member Role Status Dates Olga Lidia Martin MD Attending Provider Active Start : July 15, 2023 End: July 14HYSICIMARTHA [facility] Care ProviderActiveStart: July 15, 2023 End: July 15, 2023 Team Status: Active Member Role Status Dates Mervat Santiago PRINT LINE INSPECTOR-C Referring Provider Active Start: July 22, 2023 Jose M Landry II, DOAttending ProviderActiveStart: July 22, 2023 PHYSICIAN NO FAMILYPrimary Care ProviderActiveStart: July 22, 2023 Team Status: Inactive Member Role Status Dates Maddie Dixon APRN Attending Provider Acti ve Start: July 22, 2023 End: July 21HYSICIAN NO FAMILYPrimary Care ProviderActiveStart: July 22, 2023 End: July 22, 2023 Team Status: Active Member Role Status Dates Fawad Rocha MD Attending Provider Active S tart: July 22, 2023 PHYSICIAN NO FAMILYPrimary Care ProviderActiveStart: July 22, 2023 Team Status: Active Member Role Status Dates [facility] Primary Care Provider Active Start: July 03, 2023 Rosibel Starr Provider, Other ProviderActiveStart: July 03, 2023 Team Status: Inactive Member Role Status Dates Fawad Rocha MD Attending Provider Active S tart: July 22, 2023 End: July 21HYSICIAN NO FAMILYPrimary Care ProviderActiveStart: July 22, 2023 End: July 22, 2023 Team Status: Inactive Member Role Status Dates Olga Lidia Martin MD Attending Provider Active Start : August 08, 2023 End: August 08, 2023 Team Status: Active Member Role Status Dates PHYSICIAN NO FAMILY Primary Care Provider Active Start: September 29, 2023 Rosibel Hadley ProviderActiveStart: September 29, 2023 Team Status: Active Member Role Status Dates Mervat Santiago PRINT LINE INSPECTOR-C Primary Care Provider Active Start: December 30, 2023 Yisel Andrade MDAttending ProviderActiveStart: December 30, 2023 Team Status: Inactive Member Role Status Dates Mervat Santiago PRINT LINE INSPECTOR-C Primary Care Provider Active Start: January 22, 2024 End: January 21humphrey Gayle DPM MSAttending ProviderActiveStart: January 22, 2024 End: January 22, 2024 Team Status: Active Member Role Status Dates Mervat Santiago PRINT LINE INSPECTOR-C Primary Care Provider Active Start: January 08, 2024 Moisés Mauro DOAttending ProviderActiveStart: January 08, 2024 Team Status: Inactive Member Role Status Dates Mervat Santiago , PRINT LINE INSPECTOR-C Primary Care Provider Active Start: February 05, 2024 End: February 05, 2024Rosibel Starr ProviderActiveStart: February 05, 2024 End: February 05, 2024 Team Status: Active Member Role Status Dates Mervat Santiago , PRINT LINE INSPECTOR-C Primary Care Provider Active Start: February 05, 2024 Amber Starrending Provider, Other ProviderActiveStart: February 05, 2024 Team MemberRelationshipSpecialtyStart DateEnd Date Katlin Castellanos PA-C [facility] [address], [facility] [place] [place] [address] PCP - GeneralPhysician 07/22/23 Team Status: Active Member Role Status Dates Mervat Santiago , PRINT LINE INSPECTOR-C Primary Care Provider Active Start: May 31, 2024 Rosibel Colby ProviderActiveStart: May 31, 2024 Team Status: Active Member Role Status Dates Mervat Santiago PRINT LINE INSPECTOR-C Primary Care Provider Active Start: September 10, 2024 Shelby Siddiqui ProviderActiveStart: September 10, 2024 Marlyn Combs Provider, Attending ProviderActiveStart: September 10, 2024 Team Status: Active Member Role Status Dates Mervat Santiago PRINT LINE INSPECTOR-C Primary Care Provider Active Start: September 11, 2024 Shelby Siddiqui ProviderActiveStart: September 11, 2024 Marlyn Combs ProviderActiveStart: September 11, 2024 Soumya Garrison ProviderActiveStart: September 11, 2024 Rosibel Hadley Provider, Other ProviderActiveStart: September 11, 2024 LLOYD SantillanMOkristina ProviderActiveStart: September 11, 2024 Team Status: Active Member Role Status Dates Mervat Santiago , PRINT LINE INSPECTOR-C Primary Care Provider Active Start: September 13, 2024 Souleymane Siddiquigenmarvin ProviderActiveStart: September 13, 2024 Nick Wayne MDAdmit ProviderActiveStart: September 13, 2024 Julian Jones MDOther ProviderActiveStart: September 13, 2024 Olga Lidia Martin MDOther ProviderActiveStart: September 13, 2024 Nathaniel Alonso DPMOther ProviderActiveStart: September 13, 2024 Riya Pitt MDAttending Provider, Other ProviderActiveStart: September 13, 2024 Team Status: Active Member Role Status Dates Mervat Santiago PRINT LINE INSPECTOR-C Primary Care Provider Active Start: August 31, 2024 Rosibel Hadley ProviderActiveStart: August 31, 2024 Team Status: Active Member Role/Relationship Status Dates Mervat Santiago PRINT LINE INSPECTOR-C Primary Care Provider Active Start: October 28, 2024 Rosibel Mejia ProviderActiveStart: October 28, 2024 Team Status: Inactive Member Role/Relationship Status Dates Yisel Andrade MD Attending Provider Active Star t: November 12, 2024 End: November 12, 2024 Team Status: Active Member Role/Relationship Status Dates NON STAFF Primary Care Provider Active Start: November 28, 2024 Rosibel Hadley ProviderActiveStart: November 28, 2024 Team Status: Inactive Member Role/Relationship Status Dates Olga Lidia Martin MD Attending Provider Active Start : December 06, 2024 End: December 06, 2024 Team Status: Inactive Member Role/Relationship Status Dates Fawad Rocha MD Attending Provider Active S tart: December 07, 2024 End: December 07, 2024NON STAFFPrimary Care ProviderActiveStart: December 07, 2024 End: December 07, 2024 Team Status: Active Member Role/Relationship Status Dates NON STAFF Primary Care Provider Active Start: December 29, 2024 Rosibel Colby ProviderActiveStart: December 29, 2024 Team Status: Inactive Member Role/Relationship Status Dates NON STAFF Primary Care Provider Active Start: January 04, 2025 End: January 04, 2025Jailene Argueta NP-CAtteninder ProviderActiveStart: January 04, 2025 End: January 04, 2025 Team Status: Active Member Role/Relationship Status Dates NON STAFF Primary Care Provider Active Start: January 13, 2025 Fawad Rocha MDAttending ProviderActiveStart: January 13, 2025 Fawad Rocha MDOther ProviderActiveStart: January 13, 2025 Team Status: Inactive Member Role/Relationship Status Dates ELÍAS Quigley Attending Provider Active Start: January 25, 2025 End: January 25, 2025 (unrecognized sect ion and content) No Status Records FoundNo Status Records FoundNo Status Records FoundNo Status Records FoundNo Status Records FoundNo Status Records FoundNo Status Records FoundNo Status Records Found INFORMATION SOURCE (unrecogn ized section and content) DATE CREATED AUTHOR 02/22/2022 [facility] DATE CREATED AUTHOR AUTHOR'S ORGANIZ ATION 08/18/2022 [facility] DATE CREATED AUTHOR AUTHOR'S ORGANIZ ATION 08/31/2022 [facility] DATE CREATED AUTHOR AUTHOR'S ORGANIZ ATION 09/17/2022 [facility] DATE CREATED AUTHOR AUTHOR'S ORGANIZ ATION 09/23/2022 [facility] DATE CREATED AUTHOR AUTHOR'S ORGANIZ ATION 10/19/2022 [facility] DATE CREATED AUTHOR AUTHOR'S ORGANIZ ATION 02/14/2023 [facility] DATE CREATED AUTHOR AUTHOR'S ORGANIZ ATION 12/29/2023 [facility] Source Comments (unrecognize d section and content) In the event this informatio n is protected by the Federal Confidentiality of Alcohol and Drug Abuse Patient Records regulations: The Federal rules restrict any use of the information to criminally investigate or prosecute any alcohol or drug abuse patient.[facility] the event this information is protected by the Federal Confidentiality of Alcohol and Drug Abuse Patient Records regulations: The Federal rules restrict any use of the information to criminally investigate or prosecute any alcohol or drug abuse patient.[facility] the event this information is protected by the Federal Confidentiality of Alcohol and Drug Abuse Patient Records regulations: The Federal rules restrict any use of the information to criminally investigate or prosecute any alcohol or drug abuse patient.[facility] the event this information is protected by the Federal Confidentiality of Alcohol and Drug Abuse Patient Records regulations: The Federal rules restrict any use of the information to criminally investigate or prosecute any alcohol or drug abuse patient.[facility] CenterIn the event this information is protected by the Federal Confidentiality of Alcohol and Drug Abuse Patient Records regulations: The Federal rules restrict any use of the information to criminally investigate or prosecute any alcohol or drug abuse patient.[facility] CenterIn the event this information is protected by the Federal Confidentiality of Alcohol and Drug Abuse Patient Records regulations: The Federal rules restrict any use of the information to criminally investigate or prosecute any alcohol or drug abuse patient.[facility] CenterIn the event this information is protected by the Federal Confidentiality of Alcohol and Drug Abuse Patient Records regulations: The Federal rules restrict any use of the information to criminally investigate or prosecute any alcohol or drug abuse patient.[facility] Goals (unrecognized section and content) Goals may [...] BE BASED ON THE PRIMARY CLINICAL RECORDS. [facility] [employer] [facility]. provides no warranty or guarantee of the accuracy or completeness of information in this document.
== END 2025-03-10 08:01 | disposition home or self-care (01) ==
LOC: WC 03-14 15:35
PROVIDERS: Visit Provider Physician Assistant
DX: L89.614 Pressure ulcer of right heel, stage 4 (principal); E11.621 Type 2 diabetes mellitus with foot ulcer; L97.415 Non-pressure chronic ulcer of right heel and midfoot with muscle involvement without evidence of necrosis; L84 Corns and callosities; E11.65 Type 2 diabetes mellitus with hyperglycemia
CPT/HCPCS: 11043; 11055